=== PATIENT | male | born 1950 | race Caucasian/White ===

== ENCOUNTER 2017-10-31 08:02 | Outpatient (RCR) | payer MEDICARE, OTHER, SELFPAY ==
[2017-10-31 08:55] VITALS: BP 156/96; PULSE 57; RESP 18; TEMP 37; BMI 30.3
--- NOTE | 2017-10-31 10:53 | RAD_ITS ---
STUDY: X-RAY CHEST REASON FOR EXAM: Male, 67 years old. pre wound center, no chest complaints TECHNIQUE: Frontal and lateral view of the chest. COMPARISON: None. FINDINGS: The lungs are clear and expanded. There is no demonstrated pleural abnormality. Normal size heart. Normal mediastinum and samanta. Normal visualized pulmonary arteries. Normal visualized aortic arch and descending thoracic aorta. There are diffuse degenerative changes of the visualized thoracic spine. Normal visualized ribs, clavicles, and shoulders. There is no demonstrated abnormality of the visualized soft tissue structures of the upper abdomen. RAD/Chest PA and Lateral IMPRESSION: There are no acute findings in the chest. Electronically Signed: Luis Austin MD at 21:44 EDT , Service support ,
--- NOTE | 2017-10-31 10:57 | EKG12_ITS ---
Test Reason : HTN Blood Pressure : / mmHG Vent. Rate : 061 BPM Atrial Rate : 061 BPM P-R Int : 164 ms QRS Dur : 088 ms QT Int : 424 ms P-R-T Axes : 064 005 037 degrees QTc Int : 426 ms Normal sinus rhythm Possible Left atrial enlargement Borderline ECG No previous ECGs available Confirmed by NICOLASA CAMARA, IZZY ([id number]), visual effects editor MELVINA ROTH ([id number] on 11/03/2017 3:53:30 PM Referred By: Marita Cook Confirmed By:IZZY BALDWIN MD
[2017-10-31 11:04] LABS: Absolute Lymphocyte Count 0.44 X10^3/ul (0.83-4.51); Absolute Neutrophil Count 6.1 X10^3/uL (2.0-7.7); Basophil# 0.02 X10^3/uL; Basophil% 0.3 % (0-1); Differential Indicated SCAN CRITERIA MET; Eosinophil# 0.16 X10^3/uL; Eosinophils% 2.1 % (0-5); Hematocrit 47.2 % (40-54); Hemoglobin 15.8 g/dl (13.0-16.5); Lymphocyte # 0.44 X10^3/ul (4.0); Lymphocyte % 5.9 % (19-41); Mean Corp Hgb Conc 33.5 g/gl (32-36); Mean Corpuscular Hgb 29.2 pg (27.0-32.0); Mean Corpuscular Volume 87.2 fL (80-94); Mean Platelet Vol. 10.3 fl (6.2-12.0); Monocyte# 0.71 X10^3/uL; Monocyte% 9.5 % (0-10); Neutrophil # 6.13 X10^3/uL (2.7-7.7); Neutrophil % 82.1 % (47-70); POSITIVE COUNT NO; POSITIVE DIFFERENTIAL YES; POSITIVE MORPHOLOGY NO; Platelet Count 215 K/mm3 (150-450); RBC Distribution Width CV 13.5 % (11.6-14.6); RBC Distribution Width SD 43.2 fl (35.1-43.9); Red Blood Count 5.41 M/mm3 (4.6-6.2); White Blood Count 7.5 K/mm3 (4.4-11.0)
--- NOTE | 2017-10-31 11:17 | HBO.CON.PC_ITS ---
(1) Soft tissue radionecrosis Status: Acute Current Visit: Yes Code(s): L59.8 - Other specified disorders of the skin and subcutaneous tissue related to radiation; Y84.2 - Radiological procedure and radiotherapy as the cause of abnormal reaction of the patient, or of later complication, without mention of misadventure at the time of the procedure (2) History of osteomyelitis Status: Acute Current Visit: Yes Code(s): Z87.39 - Personal history of other diseases of the musculoskeletal system and connective tissue (3) Cancer of tongue Status: Acute Current Visit: Yes Code(s): C02.9 - Malignant neoplasm of tongue, unspecified History of Present Illness Date of Service: 10/31/17 Presenting Chief Complaint: HBO evaluation The patient is a 67 year old M who [facility] the possibility of initiating hyperbaric oxygen therapy for treatment of [] 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 Patient has had implants for T on the left molar area on the lower jaw. 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 Patient currently feels good and other than missing teeth on the left side has had no problems. Past Medical History Allergies/Adverse Reactions: Allergies No Known Allergies Allergy (Verified 10/31/17 08:36) Smoking Status: Former smoker Review of Systems Constitutional: Denies: Chills, Fever Eyes: Denies: Blurred vision, Drainage, Pain HEENT: Denies: Difficulty Hearing, Difficulty Swallowing, Sore Throat, Visual Changes Cardiovascular: Denies: Chest Pain, Palpitations, Syncope Respiratory: Denies: Cough, Shortness of Breath Gastrointestinal: Denies: Abdominal Pain, Nausea, Vomiting Genitourinary: Denies: Dysuria, Frequency Musculoskeletal: Denies: Joint Pain, Muscle pain Skin: Denies: Jaundice, Rash Neurological: Denies: Balance problems, Change in Speech, Difficulty swallowing , Focal weakness Psychiatric: Denies: Anxiety, Depression Endocrine: Denies: Change in Body Habitus Hematologic/ Lymphatic: Denies: Adenopathy - Physical Exam Vital Signs Temp Pulse Resp BP 98.6 F 57 L 18 156/96 H 10/31/17 08:55 10/31/17 08:55 10/31/17 08:55 10/31/17 08:55 General: Oriented x3, Cooperative, Well developed HEENT: Atraumatic, PERRLA Oral: Moist Mucosa Neck: Supple, No JVD Lungs: Clear to auscultation, Normal air movement Cardiovascular: Regular rate, Regular Rhythm Abdomen: Bowel Sounds Present, Soft, Non Tender, No Hepato-splenomegaly Extremities: No clubbing, No edema Wound Measurements and Assessment WC - Nurse 1 - General Ulcer Measurement Start: 10/31/17 08:35 Freq: Status: Active Protocol: Activity Type Activity Date Activity User E-Sign Co-Sign Detail Recorded Client Recorded Date Recorded By Document 10/31/17 08:55 TM [id number] 10/31/17 08:57 TM 10/31/17 08:55 Wound Center Nurse 1 [Edema Assessment] -Lower Limb Edema Present No WC - Nurse 2 - General Ulcer CM Notes Start: 10/31/17 08:35 Freq: Status: Active Protocol: Activity Type Activity Date Activity User E-Sign Co-Sign Detail Recorded Client Recorded Date Recorded By Document 10/31/17 09:38 MW [id number] 10/31/17 09:51 MW 10/31/17 09:38 Wound Center Nurse 2 [Procedure/Treatment] STRN -Time 09:38 -Correct Patient Yes -Correct Side, Site, Position Yes -Correct Procedure No -Procedure Performed No -Wound/Ulcer Outcome Not Healed -Ulcer Cleansing Not Cleansed -Foul Odor after Cleansing No -Bioengineered Tissue No -Bleeding Controlled with NA [See Physician Procedure note for Specifics] Pain Scale: 0-10 Numeric [Pain] -Is Patient Pain Free? Yes Musculoskeletal: No Tenderness to Palpation of Joints or Extremities Lymphatic: No Cervical, Supraclavicular, or Inguinal Adenopathy Neurological: Cranial nerves II-XII grossly intact, Neuro grossly intact Psych/Mental Status: Normal Affect, Appropriate Assessment/Plan Active Problems Soft tissue radionecrosis (Acute) History of osteomyelitis (Acute) Cancer of tongue (Acute) AMY SUN is an appropriate candidate for hyperbaric oxygen therapy. Hyperbaric Oxygen Therapy would be an essential adjunct in the resolution and treatment of this patient's presenting problem. This patient has sufficient physiologic and psychological stamina to undergo the rigors of hyperbaric oxygen therapy. As such, I recommend the following: Hyperbaric Oxygen Treatments at 2.0 BLANE in 100% Oxygen for 90 minutes per treatment, for [] treatments. I have discussed the possible benefits of hyperbaric oxygen therapy with this patient. I have also presented and described the risks, including: air gas embolism, pneumothorax, central nervous system and pulmonary oxygen toxicity, flash pulmonary edema, hypoglycemia, reversible visual refractive changes, ear and sinus cathryn-trauma, and confinement anxiety. The patient has verbalized understanding of these risks, and is still wanting to undergo hyperbaric oxygen therapy. The patient understands the significant time and transportation commitment involved in daily treatments of up to two hours duration and has stated that they are willing to commit to this therapy.
[2017-10-31 11:40] LABS: BUN 18 mg/dL (7-18); Creatinine, Serum 1.05 mg/dL (0.70-1.30); Estimated Creatinine Clearance 77.15 ml/min; Glucose 103 mg/dL (74-106)
[2017-10-31 11:41] LABS: ALB/GLOB Ratio 1.1 RATIO (0.9-2.4); AST(SGOT) 30 U/L (15-37); Alanine Aminotransfer ALT/SGPT 32 U/L (16-61); Albumin, Serum 3.9 g/dL (3.2-5.0); Alkaline Phosphatase 129 U/L (45-117); Anion Gap 7 (5-15); BUN/Creat Ratio 17.1 RATIO (10-20); Calcium,Total 8.6 mg/dL (8.5-10.1); Chloride 105 mmol/L (98-107); EST Glomerular Filtration Rate 75 mL/min (>60); Est Glom Filt Rate - Afr Amer 91 mL/min (>60); Globulin 3.6 g/dL (2.2-4.2); Potassium 3.9 mmol/L (3.5-5.1); Prealbumin 23.7 mg/dL (20.0-40.0); Protein, Total 7.5 g/dL (6.4-8.2); Sodium Level 142 mmol/L (136-145)
== END 2017-11-16 23:59 ==
LOC: WC 08:02
PROVIDERS: Visit Provider Nurse Practitioner
DX: L59.8 Other specified disorders of the skin and subcutaneous tissue related to radiation (principal); Y84.2 Radiological procedure and radiotherapy as the cause of abnormal reaction of the patient, or of later complication, without mention of misadventure at the time of the procedure; Z87.39 Personal history of other diseases of the musculoskeletal system and connective tissue; C02.9 Malignant neoplasm of tongue, unspecified; Z87.891 Personal history of nicotine dependence
CPT/HCPCS: 36415; 71046; 80053; 84134; 85025; 93005; 99203; G0463

== ENCOUNTER 2017-12-17 14:00 | Outpatient (RCR) | payer MEDICARE, OTHER, SELFPAY ==
[2017-11-17 01:40] VITALS: BP 156/96; PULSE 57; RESP 18; TEMP 37
[2017-12-09 15:16] VITALS: BP 143/95; BP 153/96; PULSE 57; PULSE 66; RESP 18; TEMP 36.7
[2017-12-10 14:00] VITALS: BP 140/99; BP 148/107; PULSE 71; PULSE 98; RESP 16; RESP 18; TEMP 15.5; TEMP 36.8
--- NOTE | 2017-12-10 16:26 | PCM.HBO.PN ---
History of Present Illness Date of Service: 12/10/17 Presenting Chief Complaint: HBO evaluation AMY SUN is a 67 year old currently undergoing hyperbaric oxygen therapy for Progress: Today's session represents the 2nd such session of hyperbaric oxygen therapy. The patient appears to be tolerating without problems. Tolerance of hyperbaric oxygen therapy: Hyperbaric oxygen therapy was administered as per the facility's protocol. The patient tolerated hyperbaric oxygen therapy well, without complaints or complications. Upon emergence from the hyperbaric chamber, the patient's vital signs remained stable. The patient was discharged in good condition. Past Medical History Allergies/Adverse Reactions: Allergies No Known Allergies Allergy (Verified 10/31/17 08:36) Smoking Status: Former smoker Physical Exam Vital Signs Temp Pulse Resp BP 98.2 F 71 16 140/99 H 12/10/17 14:00 12/10/17 14:00 12/10/17 14:00 12/10/17 14:00 General: Alert, Oriented x3, Cooperative, No apparent distress HEENT: Atraumatic, TM's Clear Lungs: Clear to auscultation, Normal air movement, No rhonchi, No wheeze, No rales Cardiovascular: Regular rate, Regular Rhythm, Normal S1, Normal S2, No murmurs Psych/Mental Status: Normal Affect, Appropriate, Alert and oriented to time, place, person, mood and affect Assessment/Plan The patient is tolerating hyperbaric oxygen and therapy will continue as planned.
[2017-12-11 14:55] VITALS: BP 162/92; PULSE 72; RESP 20; TEMP -7.7; TEMP 18; TEMP 36.6
--- NOTE | 2017-12-11 17:57 | PCM.HBO.PN ---
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 Progress: Today's session represents the 3rd such session of hyperbaric oxygen therapy. The patient appears to be tolerating without problems. Tolerance of hyperbaric oxygen therapy: Hyperbaric oxygen therapy was administered as per the facility's protocol. The patient tolerated hyperbaric oxygen therapy well, without complaints or complications. Upon emergence from the hyperbaric chamber, the patient's vital signs remained stable. The patient was discharged in good condition. Past Medical History Allergies/Adverse Reactions: Allergies No Known Allergies Allergy (Verified 10/31/17 08:36) Smoking Status: Former smoker Physical Exam Vital Signs Temp Pulse Resp BP 98 F 72 20 H 162/92 H 12/11/17 14:55 12/11/17 14:55 12/11/17 14:55 12/11/17 14:55 General: Alert, Oriented x3, Cooperative, No apparent distress HEENT: Atraumatic, PERRLA, TM's Clear Lungs: Clear to auscultation, Normal air movement, No rhonchi, No wheeze, No rales Cardiovascular: Regular rate, Regular Rhythm, Normal S1, Normal S2 Psych/Mental Status: Normal Affect, Appropriate, Alert and oriented to time, place, person, mood and affect Assessment/Plan The patient is tolerating hyperbaric oxygen and therapy will continue as planned.
[2017-12-12 13:42] VITALS: BP 135/99; BP 156/94; PULSE 57; PULSE 71; RESP 16; RESP 18; TEMP 36.3; TEMP 37.1
--- NOTE | 2017-12-12 18:41 | PCM.HBO.PN ---
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 Progress: Today's session represents the 4th such session of hyperbaric oxygen therapy. The patient appears to be tolerating without problems. Tolerance of hyperbaric oxygen therapy: Hyperbaric oxygen therapy was administered as per the facility's protocol. The patient tolerated hyperbaric oxygen therapy well, without complaints or complications. Upon emergence from the hyperbaric chamber, the patient's vital signs remained stable. The patient was discharged in good condition. Past Medical History Allergies/Adverse Reactions: Allergies No Known Allergies Allergy (Verified 10/31/17 08:36) Smoking Status: Former smoker Physical Exam Vital Signs Temp Pulse Resp BP 98.7 F 71 18 135/99 H 12/12/17 13:42 12/12/17 13:42 12/12/17 13:42 12/12/17 13:42 General: Alert, Oriented x3, Cooperative, No apparent distress Psych/Mental Status: Normal Affect, Appropriate Assessment/Plan Active Problems Soft tissue radionecrosis (Acute) History of osteomyelitis (Acute) Cancer of tongue (Acute) The patient is tolerating hyperbaric oxygen treatment and therapy will continue as per his comprehensive medical treatment plan.
--- NOTE | 2017-12-17 14:37 | PCM.HBO.PN ---
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 Progress: Today's session represents the 5th such session of hyperbaric oxygen therapy. The patient appears to be tolerating without problems. Tolerance of hyperbaric oxygen therapy: Hyperbaric oxygen therapy was administered as per the facility's protocol. The patient tolerated hyperbaric oxygen therapy well, without complaints or complications. Upon emergence from the hyperbaric chamber, the patient's vital signs remained stable. The patient was discharged in good condition. Past Medical History Allergies/Adverse Reactions: Allergies No Known Allergies Allergy (Verified 10/31/17 08:36) Smoking Status: Former smoker Physical Exam Vital Signs Temp Pulse Resp BP 98.7 F 71 18 135/99 H 12/12/17 13:42 12/12/17 13:42 12/12/17 13:42 12/12/17 13:42 General: Alert, Oriented x3, Cooperative, No apparent distress HEENT: Atraumatic, TM's Clear Lungs: Clear to auscultation, Normal air movement, No rhonchi, No wheeze, No rales Cardiovascular: Regular rate, Regular Rhythm, Normal S1, Normal S2, No murmurs Psych/Mental Status: Normal Affect, Appropriate, Alert and oriented to time, place, person, mood and affect Assessment/Plan The patient is tolerating hyperbaric oxygen treatment and therapy will continue as per his comprehensive medical treatment plan.
[2017-12-17 16:38] VITALS: BP 133/82; BP 157/99; PULSE 59; PULSE 71; RESP 18; TEMP 36.5; TEMP 36.8
== END 2017-12-17 23:59 ==
LOC: WC 14:00
PROVIDERS: Referring Provider Nurse Practitioner; Visit Provider Nurse Practitioner
DX: L59.8 Other specified disorders of the skin and subcutaneous tissue related to radiation (principal); Y84.2 Radiological procedure and radiotherapy as the cause of abnormal reaction of the patient, or of later complication, without mention of misadventure at the time of the procedure; Z87.891 Personal history of nicotine dependence; C02.9 Malignant neoplasm of tongue, unspecified
CPT/HCPCS: 99183; G0277

== ENCOUNTER 2018-01-16 10:00 | Outpatient (RCR) | payer MEDICARE, OTHER, SELFPAY ==
[2017-12-18 01:36] VITALS: BP 133/82; PULSE 71; RESP 18; TEMP 36.8
[2017-12-18 14:25] VITALS: BP 118/81; BP 145/89; PULSE 62; PULSE 71; RESP 18; TEMP 36.4; TEMP 36.6
--- NOTE | 2017-12-18 16:26 | PCM.HBO.PN ---
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 Progress: Today's session represents the 7th such session of hyperbaric oxygen therapy. The patient appears to be tolerating without problems. Tolerance of hyperbaric oxygen therapy: Hyperbaric oxygen therapy was administered as per the facility's protocol. The patient tolerated hyperbaric oxygen therapy well, without complaints or complications. Upon emergence from the hyperbaric chamber, the patient's vital signs remained stable. The patient was discharged in good condition. Past Medical History Allergies/Adverse Reactions: Allergies No Known Allergies Allergy (Verified 10/31/17 08:36) Home Medications: Ambulatory Orders Medication Instructions Recorded Valsartan 160 mg PO 12/18/17 Smoking Status: Former smoker Physical Exam Vital Signs Temp Pulse Resp BP 97.8 F 71 18 118/81 H 12/18/17 14:25 12/18/17 14:25 12/18/17 14:25 12/18/17 14:25 General: Alert, Oriented x3, Cooperative, No apparent distress HEENT: Atraumatic, PERRLA, Normocephalic, TM's Clear Lungs: Clear to auscultation, Normal air movement Cardiovascular: Regular rate, Regular Rhythm Psych/Mental Status: Normal Affect, Appropriate, Alert and oriented to time, place, person, mood and affect Assessment/Plan The patient is tolerating hyperbaric oxygen treatment and therapy will continue as per his comprehensive medical treatment plan.
[2017-12-19 13:51] VITALS: BP 125/85; BP 150/89; PULSE 64; PULSE 65; RESP 16; RESP 20; TEMP 36.5; TEMP 37.1
--- NOTE | 2017-12-19 18:52 | PCM.HBO.PN ---
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 Progress: Today's session represents the 8th such session of hyperbaric oxygen therapy. The patient appears to be tolerating without problems. Tolerance of hyperbaric oxygen therapy: Hyperbaric oxygen therapy was administered as per the facility's protocol. The patient tolerated hyperbaric oxygen therapy well, without complaints or complications. Upon emergence from the hyperbaric chamber, the patient's vital signs remained stable. The patient was discharged in good condition. Past Medical History Allergies/Adverse Reactions: Allergies No Known Allergies Allergy (Verified 10/31/17 08:36) Home Medications: Ambulatory Orders Medication Instructions Recorded Valsartan 160 mg PO 12/18/17 Smoking Status: Former smoker Tobacco Use: Non-smoker Physical Exam Vital Signs Temp Pulse Resp BP 97.7 F L 65 20 H 125/85 H 12/19/17 13:51 12/19/17 13:51 12/19/17 13:51 12/19/17 13:51 General: Alert, Oriented x3, Cooperative, No apparent distress Psych/Mental Status: Normal Affect, Appropriate Assessment/Plan Active Problems Soft tissue radionecrosis (Acute) History of osteomyelitis (Acute) Cancer of tongue (Acute) The patient is tolerating hyperbaric oxygen treatment and therapy will continue as per his comprehensive medical treatment plan.
[2017-12-22 14:23] VITALS: BP 149/94; BP 157/92; PULSE 59; PULSE 64; RESP 18; TEMP 36.6; TEMP 36.7
--- NOTE | 2017-12-22 16:18 | PCM.HBO.PN ---
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 Progress: Today's session represents the 8th such session of hyperbaric oxygen therapy. The patient appears to be tolerating without problems. Tolerance of hyperbaric oxygen therapy: Hyperbaric oxygen therapy was administered as per the facility's protocol. The patient tolerated hyperbaric oxygen therapy well, without complaints or complications. Upon emergence from the hyperbaric chamber, the patient's vital signs remained stable. The patient was discharged in good condition. Past Medical History Allergies/Adverse Reactions: Allergies No Known Allergies Allergy (Verified 10/31/17 08:36) Home Medications: Ambulatory Orders Medication Instructions Recorded Valsartan 160 mg PO 12/18/17 Smoking Status: Former smoker Tobacco Use: Non-smoker Physical Exam Vital Signs Temp Pulse Resp BP 98.1 F 64 18 157/92 H 12/22/17 14:23 12/22/17 14:23 12/22/17 14:23 12/22/17 14:23 General: Alert, Oriented x3, Cooperative, No apparent distress, Well developed, Well nourished HEENT: Atraumatic, PERRLA, EOMI, Normocephalic Lungs: Normal air movement Psych/Mental Status: Normal Affect, Appropriate, Alert and oriented to time, place, person, mood and affect Assessment/Plan The patient appears to be tolerating hyperbaric oxygen therapy well, which will be continued as per the patient's medical plan.
[2017-12-24 14:00] VITALS: BP 161/116; BP 182/114; PULSE 64; RESP 16; RESP 18; TEMP 36.8
--- NOTE | 2017-12-24 14:34 | PCM.HBO.PN ---
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 Progress: Today's session represents the 9th such session of hyperbaric oxygen therapy. The patient appears to be tolerating without problems. Tolerance of hyperbaric oxygen therapy: Hyperbaric oxygen therapy was administered as per the facility's protocol. The patient tolerated hyperbaric oxygen therapy well, without complaints or complications. Upon emergence from the hyperbaric chamber, the patient's vital signs remained stable. The patient was discharged in good condition. Past Medical History Allergies/Adverse Reactions: Allergies No Known Allergies Allergy (Verified 10/31/17 08:36) Home Medications: Ambulatory Orders Medication Instructions Recorded Valsartan 160 mg PO 12/18/17 Smoking Status: Former smoker Tobacco Use: Non-smoker Physical Exam Vital Signs Temp Pulse Resp BP 98.1 F 64 18 157/92 H 12/22/17 14:23 12/22/17 14:23 12/22/17 14:23 12/22/17 14:23 General: Alert, Oriented x3, Cooperative, No apparent distress HEENT: Atraumatic, TM's Clear Lungs: Clear to auscultation, Normal air movement, No rhonchi, No wheeze, No rales Cardiovascular: Regular rate, Regular Rhythm Psych/Mental Status: Normal Affect, Appropriate, Alert and oriented to time, place, person, mood and affect Assessment/Plan The patient appears to be tolerating hyperbaric oxygen therapy well, which will be continued as per the patient's medical plan.
[2017-12-25 16:00] VITALS: BP 148/96; BP 155/105; PULSE 57; PULSE 67; RESP 18; TEMP 36.6; TEMP 36.9
--- NOTE | 2017-12-25 17:13 | PCM.HBO.PN ---
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 Progress: Today's session represents the 11th such session of hyperbaric oxygen therapy. The patient appears to be tolerating without problems. Tolerance of hyperbaric oxygen therapy: Hyperbaric oxygen therapy was administered as per the facility's protocol. The patient tolerated hyperbaric oxygen therapy well, without complaints or complications. Upon emergence from the hyperbaric chamber, the patient's vital signs remained stable. The patient was discharged in good condition. Past Medical History Allergies/Adverse Reactions: Allergies No Known Allergies Allergy (Verified 10/31/17 08:36) Home Medications: Ambulatory Orders Medication Instructions Recorded Valsartan 160 mg PO 12/18/17 Smoking Status: Former smoker Tobacco Use: Non-smoker Physical Exam Vital Signs Temp Pulse Resp BP 98.4 F 67 18 148/96 H 12/25/17 16:00 12/25/17 16:00 12/25/17 16:00 12/25/17 16:00 General: Alert, Oriented x3, Cooperative, No apparent distress HEENT: Atraumatic, PERRLA, EOMI, TM's Clear, - - small amount of cerumen present left ear canal, unable to remove with loop Lungs: Clear to auscultation, Normal air movement Cardiovascular: Regular rate, Regular Rhythm Psych/Mental Status: Normal Affect, Appropriate, Alert and oriented to time, place, person, mood and affect Assessment/Plan The patient appears to be tolerating hyperbaric oxygen therapy well, which will be continued as per the patient's medical plan.
[2017-12-26 13:38] VITALS: BP 150/83; BP 183/101; PULSE 65; PULSE 66; RESP 16; RESP 18; TEMP 36.7; TEMP 36.9
--- NOTE | 2017-12-26 15:55 | PCM.HBO.PN ---
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 Progress: Today's session represents the 12th such session of hyperbaric oxygen therapy. The patient appears to be tolerating without problems. Tolerance of hyperbaric oxygen therapy: Hyperbaric oxygen therapy was administered as per the facility's protocol. The patient tolerated hyperbaric oxygen therapy well, without complaints or complications. Upon emergence from the hyperbaric chamber, the patient's vital signs remained stable. The patient was discharged in good condition. Past Medical History Allergies/Adverse Reactions: Allergies No Known Allergies Allergy (Verified 10/31/17 08:36) Home Medications: Ambulatory Orders Medication Instructions Recorded Valsartan 160 mg PO 12/18/17 Smoking Status: Former smoker Tobacco Use: Non-smoker Physical Exam Vital Signs Temp Pulse Resp BP 98.4 F 66 18 183/101 H 12/26/17 13:38 12/26/17 13:38 12/26/17 13:38 12/26/17 13:38 General: Alert, Oriented x3, Cooperative, No apparent distress Psych/Mental Status: Normal Affect, Appropriate Assessment/Plan Active Problems Soft tissue radionecrosis (Acute) History of osteomyelitis (Acute) Cancer of tongue (Acute) The patient appears to be tolerating hyperbaric oxygen therapy well, which will be continued as per the patient's medical plan.
[2017-12-29 13:53] VITALS: BP 141/74; BP 156/97; PULSE 63; PULSE 68; RESP 16; TEMP 35; TEMP 36.4
--- NOTE | 2017-12-29 16:35 | PCM.HBO.PN ---
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 Progress: Today's session represents the 12th such session of hyperbaric oxygen therapy. The patient appears to be tolerating without problems. Tolerance of hyperbaric oxygen therapy: Hyperbaric oxygen therapy was administered as per the facility's protocol. The patient tolerated hyperbaric oxygen therapy well, without complaints or complications. Upon emergence from the hyperbaric chamber, the patient's vital signs remained stable. The patient was discharged in good condition. Past Medical History Allergies/Adverse Reactions: Allergies No Known Allergies Allergy (Verified 10/31/17 08:36) Home Medications: Ambulatory Orders Medication Instructions Recorded Valsartan 160 mg PO 12/18/17 Smoking Status: Former smoker Tobacco Use: Non-smoker Physical Exam Vital Signs Temp Pulse Resp BP 95 F L 68 16 156/97 H 12/29/17 13:53 12/29/17 13:53 12/29/17 13:53 12/29/17 13:53 General: Alert, Oriented x3, Cooperative, No apparent distress, Well developed, Well nourished HEENT: Atraumatic, PERRLA, EOMI, Normocephalic Lungs: Normal air movement Psych/Mental Status: Normal Affect, Appropriate, Alert and oriented to time, place, person, mood and affect Assessment/Plan The patient appears to be tolerating hyperbaric oxygen therapy well, which will be continued as per the patient's medical plan.
[2017-12-31 14:22] VITALS: BP 158/113; BP 162/90; PULSE 56; PULSE 60; RESP 18; TEMP 36.4; TEMP 36.6
--- NOTE | 2017-12-31 15:19 | PCM.HBO.PN ---
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 Progress: Today's session represents the 13th such session of hyperbaric oxygen therapy. The patient appears to be tolerating without problems. Tolerance of hyperbaric oxygen therapy: Hyperbaric oxygen therapy was administered as per the facility's protocol. The patient tolerated hyperbaric oxygen therapy well, without complaints or complications. Upon emergence from the hyperbaric chamber, the patient's vital signs remained stable. There was an obvious bump to the lateral aspect of the left lower leg. The site was not red or warm. It was not painful to the touch. The inflammation quickly resolved once out of the chamber. The patient was discharged in good condition. Past Medical History Allergies/Adverse Reactions: Allergies No Known Allergies Allergy (Verified 10/31/17 08:36) Home Medications: Ambulatory Orders Medication Instructions Recorded Valsartan 160 mg PO 12/18/17 Smoking Status: Former smoker Tobacco Use: Non-smoker Physical Exam Vital Signs Temp Pulse Resp BP 97.8 F 56 L 18 162/90 H 12/31/17 14:22 12/31/17 14:22 12/31/17 14:22 12/31/17 14:22 General: Alert, Oriented x3, Cooperative, No apparent distress HEENT: Atraumatic, TM's Clear Lungs: Clear to auscultation, Normal air movement, No rhonchi, No wheeze, No rales Cardiovascular: Regular rate, Regular Rhythm, Normal S1, Normal S2, No murmurs Psych/Mental Status: Normal Affect, Appropriate, Alert and oriented to time, place, person, mood and affect Assessment/Plan The patient appears to be tolerating hyperbaric oxygen therapy well, however I recommend therapy be delayed until this the left lateral lower leg can be evaluated. Suggested the patient follow with his PCP or make an appointment with a vascular specialist for clearance.
[2018-01-02 13:16] VITALS: BP 139/98; BP 151/102; PULSE 61; PULSE 69; RESP 16; RESP 18; TEMP 36.3; TEMP 36.6
--- NOTE | 2018-01-02 17:21 | PCM.HBO.PN ---
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 Progress: Today's session represents the 14th such session of hyperbaric oxygen therapy. The patient appears to be tolerating without problems. Tolerance of hyperbaric oxygen therapy: Hyperbaric oxygen therapy was administered as per the facility's protocol. The patient tolerated hyperbaric oxygen therapy well, without complaints or complications. Upon emergence from the hyperbaric chamber, the patient's vital signs remained stable. The patient was discharged in good condition. Past Medical History Allergies/Adverse Reactions: Allergies No Known Allergies Allergy (Verified 10/31/17 08:36) Home Medications: Ambulatory Orders Medication Instructions Recorded Valsartan 160 mg PO 12/18/17 Smoking Status: Former smoker Tobacco Use: Non-smoker Physical Exam Vital Signs Temp Pulse Resp BP 97.8 F 69 18 139/98 H 01/02/18 13:16 01/02/18 13:16 01/02/18 13:16 01/02/18 13:16 General: Alert, Oriented x3, Cooperative, No apparent distress Psych/Mental Status: Normal Affect, Appropriate Assessment/Plan Active Problems Soft tissue radionecrosis (Acute) History of osteomyelitis (Acute) Cancer of tongue (Acute) The patient appears to be tolerating hyperbaric oxygen therapy well and will continue treatments per his current medical plan.
[2018-01-05 14:14] VITALS: BP 153/92; BP 154/104; PULSE 59; PULSE 65; RESP 16; RESP 20; TEMP 36.8; TEMP 37
--- NOTE | 2018-01-05 17:00 | PCM.HBO.PN ---
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 Progress: Today's session represents the 15th such session of hyperbaric oxygen therapy. The patient appears to be tolerating without problems. Tolerance of hyperbaric oxygen therapy: Hyperbaric oxygen therapy was administered as per the facility's protocol. The patient tolerated hyperbaric oxygen therapy well, without complaints or complications. Upon emergence from the hyperbaric chamber, the patient's vital signs remained stable. The patient was discharged in good condition. Past Medical History Allergies/Adverse Reactions: Allergies No Known Allergies Allergy (Verified 10/31/17 08:36) Home Medications: Ambulatory Orders Medication Instructions Recorded Valsartan 160 mg PO 12/18/17 Smoking Status: Former smoker Tobacco Use: Non-smoker Physical Exam Vital Signs Temp Pulse Resp BP 98.6 F 65 20 H 154/104 H 01/05/18 14:14 01/05/18 14:14 01/05/18 14:14 01/05/18 14:14 General: Alert, Oriented x3, Cooperative, No apparent distress, Well developed, Well nourished HEENT: Atraumatic, PERRLA, EOMI, Normocephalic Lungs: Normal air movement Psych/Mental Status: Normal Affect, Appropriate, Alert and oriented to time, place, person, mood and affect Assessment/Plan The patient appears to be tolerating hyperbaric oxygen therapy well, which will be continued as per the patient's medical plan.
[2018-01-07 13:12] VITALS: BP 143/91; PULSE 64; RESP 20; TEMP -6.6; TEMP 20
--- NOTE | 2018-01-07 14:51 | PCM.HBO.PN ---
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 Progress: Today's session represents the 16th such session of hyperbaric oxygen therapy. The patient appears to be tolerating without problems. Tolerance of hyperbaric oxygen therapy: Hyperbaric oxygen therapy was administered as per the facility's protocol. The patient tolerated hyperbaric oxygen therapy well, without complaints or complications. Upon emergence from the hyperbaric chamber, the patient's vital signs remained stable. The patient was discharged in good condition. Past Medical History Allergies/Adverse Reactions: Allergies No Known Allergies Allergy (Verified 10/31/17 08:36) Home Medications: Ambulatory Orders Medication Instructions Recorded Valsartan 160 mg PO 12/18/17 Smoking Status: Former smoker Tobacco Use: Non-smoker Physical Exam Vital Signs Temp Pulse Resp BP 20 F L 64 20 H 143/91 H 01/07/18 13:12 01/07/18 13:12 01/07/18 13:12 01/07/18 13:12 General: Alert, Oriented x3, Cooperative, No apparent distress HEENT: Atraumatic, TM's Clear Lungs: Clear to auscultation, Normal air movement, No rhonchi, No wheeze, No rales Cardiovascular: Regular rate, Regular Rhythm, Normal S1, Normal S2, No murmurs Psych/Mental Status: Normal Affect, Appropriate, Alert and oriented to time, place, person, mood and affect Assessment/Plan The patient appears to be tolerating hyperbaric oxygen therapy well, which will be continued as per the patient's medical plan.
[2018-01-12 15:23] VITALS: BP 134/88; BP 151/101; PULSE 59; PULSE 66; RESP 16; TEMP 35.9; TEMP 37.1
--- NOTE | 2018-01-12 17:17 | PCM.HBO.PN ---
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 Progress: Today's session represents the 17th such session of hyperbaric oxygen therapy. The patient appears to be tolerating without problems. Tolerance of hyperbaric oxygen therapy: Hyperbaric oxygen therapy was administered as per the facility's protocol. The patient tolerated hyperbaric oxygen therapy well, without complaints or complications. Upon emergence from the hyperbaric chamber, the patient's vital signs remained stable. The patient was discharged in good condition. Past Medical History Allergies/Adverse Reactions: Allergies No Known Allergies Allergy (Verified 10/31/17 08:36) Home Medications: Ambulatory Orders Medication Instructions Recorded Valsartan 160 mg PO 12/18/17 Smoking Status: Former smoker Tobacco Use: Non-smoker Physical Exam Vital Signs Temp Pulse Resp BP 98.8 F 66 16 134/88 H 01/12/18 15:23 01/12/18 15:23 01/12/18 15:23 01/12/18 15:23 General: Alert, Oriented x3, Cooperative, No apparent distress, Well developed, Well nourished HEENT: Atraumatic, PERRLA, EOMI, Normocephalic Lungs: Normal air movement Psych/Mental Status: Normal Affect, Appropriate, Alert and oriented to time, place, person, mood and affect Assessment/Plan The patient appears to be tolerating hyperbaric oxygen therapy well, which will be continued as per the patient's medical plan.
[2018-01-14 13:00] VITALS: BP 137/91; BP 144/107; PULSE 55; PULSE 63; RESP 16; TEMP 36.6; TEMP 36.8
--- NOTE | 2018-01-14 13:07 | PCM.HBO.PN ---
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 Progress: Today's session represents the 18th such session of hyperbaric oxygen therapy. The patient appears to be tolerating without problems. Tolerance of hyperbaric oxygen therapy: Hyperbaric oxygen therapy was administered as per the facility's protocol. The patient tolerated hyperbaric oxygen therapy well, without complaints or complications. Upon emergence from the hyperbaric chamber, the patient's vital signs remained stable. The patient was discharged in good condition. Past Medical History Allergies/Adverse Reactions: Allergies No Known Allergies Allergy (Verified 10/31/17 08:36) Home Medications: Ambulatory Orders Medication Instructions Recorded Valsartan 160 mg PO 12/18/17 Smoking Status: Former smoker Tobacco Use: Non-smoker Physical Exam Vital Signs Temp Pulse Resp BP 98.8 F 66 16 134/88 H 01/12/18 15:23 01/12/18 15:23 01/12/18 15:23 01/12/18 15:23 General: Alert, Oriented x3, Cooperative, No apparent distress HEENT: Atraumatic, TM's Clear Lungs: Clear to auscultation, Normal air movement, No rhonchi, No wheeze, No rales Cardiovascular: Regular rate, Regular Rhythm, Normal S1, Normal S2, No murmurs Psych/Mental Status: Normal Affect, Appropriate, Alert and oriented to time, place, person, mood and affect Assessment/Plan The patient appears to be tolerating hyperbaric oxygen therapy well, which will be continued as per the patient's medical plan.
[2018-01-15 12:55] VITALS: BP 128/76; BP 142/95; PULSE 55; PULSE 66; RESP 16; RESP 18; TEMP 36.2; TEMP 36.7
--- NOTE | 2018-01-15 15:42 | PCM.HBO.PN ---
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 Progress: Today's session represents the 19th such session of hyperbaric oxygen therapy. The patient appears to be tolerating without problems. Tolerance of hyperbaric oxygen therapy: Hyperbaric oxygen therapy was administered as per the facility's protocol. The patient tolerated hyperbaric oxygen therapy well, without complaints or complications. Upon emergence from the hyperbaric chamber, the patient's vital signs remained stable. The patient was discharged in good condition. Past Medical History Allergies/Adverse Reactions: Allergies No Known Allergies Allergy (Verified 10/31/17 08:36) Home Medications: Ambulatory Orders Medication Instructions Recorded Valsartan 160 mg PO 12/18/17 Smoking Status: Former smoker Tobacco Use: Non-smoker Physical Exam Vital Signs Temp Pulse Resp BP 98.0 F 66 18 128/76 H 01/15/18 12:55 01/15/18 12:55 01/15/18 12:55 01/15/18 12:55 General: Alert, Oriented x3, Cooperative, No apparent distress HEENT: Atraumatic, PERRLA, Normocephalic, TM's Clear Lungs: Clear to auscultation, Normal air movement, No rhonchi, No wheeze, No rales Cardiovascular: Regular rate, Regular Rhythm, Normal S1, Normal S2, No murmurs Psych/Mental Status: Normal Affect, Appropriate, Alert and oriented to time, place, person, mood and affect Assessment/Plan The patient appears to be tolerating hyperbaric oxygen therapy well, which will be continued as per the patient's medical plan.
[2018-01-16 11:28] VITALS: BP 129/86; BP 162/109; PULSE 55; PULSE 62; RESP 16; RESP 18; TEMP 36.1; TEMP 36.6
--- NOTE | 2018-01-16 11:48 | PCM.HBO.PN ---
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 Progress: Today's session represents the such session of hyperbaric oxygen therapy. The patient appears to be tolerating without problems. Tolerance of hyperbaric oxygen therapy: Hyperbaric oxygen therapy was administered as per the facility's protocol. The patient tolerated hyperbaric oxygen therapy well, without complaints or complications. Upon emergence from the hyperbaric chamber, the patient's vital signs remained stable. The patient was discharged in good condition. Past Medical History Allergies/Adverse Reactions: Allergies No Known Allergies Allergy (Verified 10/31/17 08:36) Home Medications: Ambulatory Orders Medication Instructions Recorded Valsartan 160 mg PO 12/18/17 Smoking Status: Former smoker Tobacco Use: Non-smoker Physical Exam Vital Signs Temp Pulse Resp BP 96.9 F L 62 18 129/86 H 01/16/18 11:28 01/16/18 11:28 01/16/18 11:28 01/16/18 11:28 Assessment/Plan The patient appears to be tolerating hyperbaric oxygen therapy well, which will be continued as per the patient's medical plan.
== END 2018-01-16 23:59 ==
LOC: WC 10:00
PROVIDERS: Referring Provider Nurse Practitioner; Visit Provider Nurse Practitioner
DX: L59.8 Other specified disorders of the skin and subcutaneous tissue related to radiation (principal); Y84.2 Radiological procedure and radiotherapy as the cause of abnormal reaction of the patient, or of later complication, without mention of misadventure at the time of the procedure; Z87.891 Personal history of nicotine dependence; C02.9 Malignant neoplasm of tongue, unspecified
CPT/HCPCS: 99183; G0277

== ENCOUNTER 2018-02-16 08:00 | Outpatient (RCR) | payer MEDICARE, OTHER, SELFPAY ==
[2018-01-17 01:18] VITALS: BP 162/109; PULSE 55; RESP 16; TEMP 36.6
[2018-01-19 13:18] VITALS: BP 141/96; PULSE 64; RESP 18; TEMP 36.5
[2018-01-19 16:06] VITALS: BP 141/96; BP 141/98; PULSE 51; PULSE 64; RESP 16; RESP 18; TEMP 36.5
--- NOTE | 2018-01-19 17:17 | HBO.PN.PCM_ITS ---
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 AMY SUN is a 67 year old currently undergoing hyperbaric oxygen therapy for radial necrosis of the soft tissue and left mandible. Progress: The patient appears to be tolerating hyperbaric oxygen therapy well. Today's session represents the 21st such session of hyperbaric oxygen therapy. Tolerance of hyperbaric oxygen therapy: Hyperbaric oxygen therapy was adm inistered as per the facility protocol. The patient tolerated hyperbaric oxygen therapy well, without complaints or complications. Upon emergence from the hyperbaric chamber, the patient's vital signs remained stable. He was discharged in good condition. Past Medical History Allergies/Adverse Reactions: Allergies No Known Allergies Allergy (Verified 10/31/17 08:36) Home Medications: Ambulatory Orders Medication Instructions Recorded Valsartan 160 mg PO 12/18/17 Smoking Status: Former smoker Tobacco Use: Non-smoker Physical Exam Vital Signs Temp Pulse Resp BP 97.7 F L 64 18 141/96 H 01/19/18 16:06 01/19/18 16:06 01/19/18 16:06 01/19/18 16:06 General: Alert, Oriented x3, Cooperative, No apparent distress, Well developed, Well nourished HEENT: Atraumatic, PERRLA, EOMI, Normocephalic Lungs: Normal air movement Psych/Mental Status: Normal Affect, Appropriate, Alert and oriented to time, place, person, mood and affect Assessment/Plan The patient appears to be tolerating hyperbaric oxygen therapy well, which will be continued as per the patient's medical plan.
[2018-01-21 13:10] VITALS: BP 146/102; BP 173/111; PULSE 55; PULSE 63; RESP 16; RESP 18; TEMP 36.2; TEMP 36.5
--- NOTE | 2018-01-21 13:51 | HBO.PN.PCM_ITS ---
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 AMY SUN is a 67 year old currently undergoing hyperbaric oxygen therapy for radial necrosis of the soft tissue and left mandible. Progress: The patient appears to be tolerating hyperbaric oxygen therapy well. Today's session represents the 22nd such session of hyperbaric oxygen therapy. Tolerance of hyperbaric oxygen therapy: Hyperbaric oxygen therapy was adm inistered as per the facility protocol. The patient tolerated hyperbaric oxygen therapy well, without complaints or complications. Upon emergence from the hyperbaric chamber, the patient's vital signs remained stable. He was discharged in good condition. Past Medical History Allergies/Adverse Reactions: Allergies No Known Allergies Allergy (Verified 10/31/17 08:36) Home Medications: Ambulatory Orders Medication Instructions Recorded Valsartan 160 mg PO 12/18/17 Smoking Status: Former smoker Tobacco Use: Non-smoker Physical Exam Vital Signs Temp Pulse Resp BP 97.7 F L 64 18 141/96 H 01/19/18 16:06 01/19/18 16:06 01/19/18 16:06 01/19/18 16:06 General: Alert, Oriented x3, Cooperative, No apparent distress HEENT: Atraumatic, TM's Clear Lungs: Clear to auscultation, Normal air movement Cardiovascular: Regular rate, Regular Rhythm Psych/Mental Status: Normal Affect, Appropriate, Alert and oriented to time, place, person, mood and affect Assessment/Plan The patient appears to be tolerating hyperbaric oxygen therapy well, which will be continued as per the patient's medical plan.
--- NOTE | 2018-01-22 11:01 | PCM.HBO.PN ---
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 AMY SUN is a 67 year old currently undergoing hyperbaric oxygen therapy for radial necrosis of the soft tissue and left mandible. Progress: The patient appears to be tolerating hyperbaric oxygen therapy well. Today's session represents the 23rd such session of hyperbaric oxygen therapy. Tolerance of hyperbaric oxygen therapy: Hyperbaric oxygen therapy was administered as per the facility protocol. The patient tolerated hyperbaric oxygen therapy well, without complaints or complications. Upon emergence from the hyperbaric chamber, the patient's vital signs remained stable (slight hypertension which has been baseline for him). He was discharged in good condition. Past Medical History Allergies/Adverse Reactions: Allergies No Known Allergies Allergy (Verified 10/31/17 08:36) Home Medications: Ambulatory Orders Medication Instructions Recorded Valsartan 160 mg PO 12/18/17 Smoking Status: Former smoker Tobacco Use: Non-smoker Physical Exam Vital Signs Temp Pulse Resp BP 97.7 F L 63 18 146/102 H 01/21/18 13:10 01/21/18 13:10 01/21/18 13:10 01/21/18 13:10 General: Alert, Oriented x3, Cooperative, No apparent distress HEENT: Atraumatic, TM's Clear Lungs: Clear to auscultation, Normal air movement Cardiovascular: Regular rate, Regular Rhythm Psych/Mental Status: Normal Affect, Appropriate, Alert and oriented to time, place, person, mood and affect Assessment/Plan The patient appears to be tolerating hyperbaric oxygen therapy well, which will be continued as per the patient's medical plan.
[2018-01-22 13:29] VITALS: BP 131/95; BP 150/116; PULSE 53; PULSE 58; RESP 16; RESP 18; TEMP 36.4; TEMP 36.7
[2018-01-23 11:17] VITALS: BP 166/97; BP 187/106; PULSE 55; PULSE 57; RESP 16; RESP 18; TEMP 36; TEMP 36.2
--- NOTE | 2018-01-23 13:00 | PCM.HBO.PN ---
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 AMY SUN is a 67 year old currently undergoing hyperbaric oxygen therapy for radial necrosis of the soft tissue and left mandible. Progress: The patient appears to be tolerating hyperbaric oxygen therapy well. Today's session represents the 23rd such session of hyperbaric oxygen therapy. Tolerance of hyperbaric oxygen therapy: Hyperbaric oxygen therapy was administered as per the facility protocol. The patient tolerated hyperbaric oxygen therapy well, without complaints or complications. Upon emergence from the hyperbaric chamber, the patient's vital signs remained stable (slight hypertension which has been baseline for him). He was discharged in good condition. Past Medical History Allergies/Adverse Reactions: Allergies No Known Allergies Allergy (Verified 10/31/17 08:36) Home Medications: Ambulatory Orders Medication Instructions Recorded Valsartan 160 mg PO 12/18/17 Smoking Status: Former smoker Tobacco Use: Non-smoker Physical Exam Vital Signs Temp Pulse Resp BP 96.8 F L 55 L 18 166/97 H 01/23/18 11:17 01/23/18 11:17 01/23/18 11:17 01/23/18 11:17 Assessment/Plan The patient appears to be tolerating hyperbaric oxygen therapy well, which will be continued as per the patient's medical plan.
[2018-01-26 14:18] VITALS: BP 138/89; BP 142/91; PULSE 55; PULSE 66; RESP 16; RESP 18; TEMP 35.6; TEMP 36.6
--- NOTE | 2018-01-26 16:24 | PCM.HBO.PN ---
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 AMY SUN is a 67 year old currently undergoing hyperbaric oxygen therapy for radionecrosis of the soft tissue and left mandible. Progress: The patient appears to be tolerating hyperbaric oxygen therapy well. Today's session represents the 25th such session of hyperbaric oxygen therapy. Tolerance of hyperbaric oxygen therapy: Hyperbaric oxygen therapy was administered as per the facility protocol. The patient tolerated hyperbaric oxygen therapy well, without complaints or complications. Upon emergence from the hyperbaric chamber, the patient's vital signs remained stable. He was discharged in good condition. Past Medical History Allergies/Adverse Reactions: Allergies No Known Allergies Allergy (Verified 10/31/17 08:36) Home Medications: Ambulatory Orders Medication Instructions Recorded Valsartan 160 mg PO 12/18/17 Smoking Status: Former smoker Tobacco Use: Non-smoker Physical Exam Vital Signs Temp Pulse Resp BP 97.8 F 66 18 138/89 H 01/26/18 14:18 01/26/18 14:18 01/26/18 14:18 01/26/18 14:18 General: Alert, Oriented x3, Cooperative, No apparent distress, Well developed, Well nourished HEENT: Atraumatic, PERRLA, EOMI, Normocephalic Lungs: Normal air movement Psych/Mental Status: Normal Affect, Appropriate, Alert and oriented to time, place, person, mood and affect Assessment/Plan Patient appears to be tolerating hyperbaric oxygen therapy well, which will be continued as per the patient's medical plan.
--- NOTE | 2018-01-28 12:20 | HBO.PN.PCM_ITS ---
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 AMY SUN is a 67 year old currently undergoing hyperbaric oxygen therapy for radionecrosis of the soft tissue and left mandible. Progress: The patient appears to be tolerating hyperbaric oxygen therapy well. Today's session represents the 26th such session of hyperbaric oxygen therapy. Tolerance of hyperbaric oxygen therapy: Hyperbaric oxygen therapy was admin istered as per the facility protocol. The patient tolerated hyperbaric oxygen therapy well, without complaints or complications. Upon emergence from the hyperbaric chamber, the patient's vital signs remained stable. He was discharged in good condition. Past Medical History Allergies/Adverse Reactions: Allergies No Known Allergies Allergy (Verified 10/31/17 08:36) Home Medications: Ambulatory Orders Medication Instructions Recorded Valsartan 160 mg PO 12/18/17 Smoking Status: Former smoker Tobacco Use: Non-smoker Physical Exam Vital Signs Temp Pulse Resp BP 97.8 F 66 18 138/89 H 01/26/18 14:18 01/26/18 14:18 01/26/18 14:18 01/26/18 14:18 General: Alert, Oriented x3, Cooperative, No apparent distress HEENT: Atraumatic, TM's Clear Lungs: Clear to auscultation, Normal air movement, No rhonchi, No wheeze Cardiovascular: Regular rate, Regular Rhythm Psych/Mental Status: Normal Affect, Appropriate, Alert and oriented to time, place, person, mood and affect Assessment/Plan Patient appears to be tolerating hyperbaric oxygen therapy well, which will be continued as per the patient's medical plan.
[2018-01-28 12:51] VITALS: BP 145/99; PULSE 64; RESP 16; TEMP 36.1
[2018-01-29 09:51] VITALS: BP 133/93; BP 184/104; PULSE 69; PULSE 70; RESP 16; RESP 18; TEMP 36.3; TEMP 36.6
--- NOTE | 2018-01-29 13:17 | PCM.HBO.PN ---
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 AMY SUN is a 67 year old currently undergoing hyperbaric oxygen therapy for radionecrosis of the soft tissue and left mandible. Progress: The patient appears to be tolerating hyperbaric oxygen therapy well. Tolerance of hyperbaric oxygen therapy: Hyperbaric oxygen therapy was administered as per the facility protocol. The patient tolerated hyperbaric oxygen therapy well, without complaints or complications. Upon emergence from the hyperbaric chamber, the patient's vital signs remained stable. He was discharged in good condition. Past Medical History Allergies/Adverse Reactions: Allergies No Known Allergies Allergy (Verified 10/31/17 08:36) Home Medications: Ambulatory Orders Medication Instructions Recorded Valsartan 160 mg PO 12/18/17 Smoking Status: Former smoker Tobacco Use: Non-smoker Physical Exam Vital Signs Temp Pulse Resp BP 97.9 F 69 18 133/93 H 01/29/18 09:51 01/29/18 09:51 01/29/18 09:51 01/29/18 09:51 General: Alert, Oriented x3, Cooperative, No apparent distress HEENT: Atraumatic, Normocephalic, TM's Clear Lungs: Normal air movement Psych/Mental Status: Normal Affect Assessment/Plan Patient appears to be tolerating hyperbaric oxygen therapy well, which will be continued as per the patient's medical plan.
[2018-01-30 08:31] VITALS: BP 148/98; BP 186/92; PULSE 59; PULSE 80; RESP 16; TEMP 36.2; TEMP 36.4
--- NOTE | 2018-01-30 10:45 | PCM.HBO.PN ---
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 AMY SUN is a 67 year old currently undergoing hyperbaric oxygen therapy for radionecrosis of the soft tissue and left mandible. Progress: The patient appears to be tolerating hyperbaric oxygen therapy well. Tolerance of hyperbaric oxygen therapy: Hyperbaric oxygen therapy was administered as per the facility protocol. The patient tolerated hyperbaric oxygen therapy well, without complaints or complications. Upon emergence from the hyperbaric chamber, the patient's vital signs remained stable. He was discharged in good condition. Past Medical History Allergies/Adverse Reactions: Allergies No Known Allergies Allergy (Verified 10/31/17 08:36) Home Medications: Ambulatory Orders Medication Instructions Recorded Valsartan 160 mg PO 12/18/17 Smoking Status: Former smoker Tobacco Use: Non-smoker Physical Exam Vital Signs Temp Pulse Resp BP 97.9 F 69 18 133/93 H 01/29/18 09:51 01/29/18 09:51 01/29/18 09:51 01/29/18 09:51 Assessment/Plan Patient appears to be tolerating hyperbaric oxygen therapy well, which will be continued as per the patient's medical plan.
[2018-02-02 14:41] VITALS: BP 123/81; BP 144/103; PULSE 56; PULSE 64; RESP 16; TEMP 35.9; TEMP 36.2
--- NOTE | 2018-02-02 17:13 | PCM.HBO.PN ---
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 MAY SUN is a 67 year old currently undergoing hyperbaric oxygen therapy for radionecrosis of the soft tissue and left mandible. Progress: The patient appears to be tolerating hyperbaric oxygen therapy well. Today's session represents the 29th such session of hyperbaric oxygen therapy. Tolerance of hyperbaric oxygen therapy: Hyperbaric oxygen therapy was administered as per the facility protocol. The patient tolerated hyperbaric oxygen therapy well, without complaints or complications. Upon emergence from the hyperbaric chamber, the patient's vital signs remained stable. He was discharged in good condition. Past Medical History Allergies/Adverse Reactions: Allergies No Known Allergies Allergy (Verified 10/31/17 08:36) Home Medications: Ambulatory Orders Medication Instructions Recorded Valsartan 160 mg PO 12/18/17 Smoking Status: Former smoker Tobacco Use: Non-smoker Physical Exam Vital Signs Temp Pulse Resp BP 96.7 F L 64 16 123/81 H 02/02/18 14:41 02/02/18 14:41 02/02/18 14:41 02/02/18 14:41 General: Alert, Oriented x3, Cooperative, No apparent distress, Well developed, Well nourished HEENT: Atraumatic, PERRLA, EOMI, Normocephalic Lungs: Normal air movement Psych/Mental Status: Normal Affect, Appropriate, Alert and oriented to time, place, person, mood and affect Assessment/Plan The patient appears to be tolerating hyperbaric oxygen therapy well, which will be continued as per the patient's medical plan.
[2018-02-04 08:27] VITALS: BP 150/95; BP 168/96; PULSE 53; PULSE 60; RESP 16; RESP 18; TEMP 36.2; TEMP 36.4
--- NOTE | 2018-02-04 08:53 | PCM.HBO.PN ---
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 AMY SUN is a 67 year old currently undergoing hyperbaric oxygen therapy for radionecrosis of the soft tissue and left mandible. Progress: The patient appears to be tolerating hyperbaric oxygen therapy well. Today's session represents the 30th such session of hyperbaric oxygen therapy. Tolerance of hyperbaric oxygen therapy: Hyperbaric oxygen therapy was administered as per the facility protocol. The patient tolerated hyperbaric oxygen therapy well, without complaints or complications. Upon emergence from the hyperbaric chamber, the patient's vital signs remained stable. He was discharged in good condition. Past Medical History Allergies/Adverse Reactions: Allergies No Known Allergies Allergy (Verified 10/31/17 08:36) Home Medications: Ambulatory Orders Medication Instructions Recorded Valsartan 160 mg PO 12/18/17 Smoking Status: Former smoker Tobacco Use: Non-smoker Physical Exam Vital Signs Temp Pulse Resp BP 96.7 F L 64 16 123/81 H 02/02/18 14:41 02/02/18 14:41 02/02/18 14:41 02/02/18 14:41 General: Alert, Oriented x3, Cooperative, No apparent distress HEENT: Atraumatic, Normocephalic Lungs: Normal air movement Psych/Mental Status: Normal Affect Assessment/Plan The patient appears to be tolerating hyperbaric oxygen therapy well, which will be continued as per the patient's medical plan.
[2018-02-05 08:25] VITALS: BP 140/99; BP 143/93; PULSE 55; PULSE 68; RESP 16; RESP 18; TEMP 36.2; TEMP 36.6
--- NOTE | 2018-02-05 08:49 | PCM.HBO.PN ---
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 AMY SUN is a 67 year old currently undergoing hyperbaric oxygen therapy for radionecrosis of the soft tissue and left mandible. Progress: The patient appears to be tolerating hyperbaric oxygen therapy well. Today's session represents the 31st such session of hyperbaric oxygen therapy. Tolerance of hyperbaric oxygen therapy: Hyperbaric oxygen therapy was administered as per the facility protocol. The patient tolerated hyperbaric oxygen therapy well, without complaints or complications. Upon emergence from the hyperbaric chamber, the patient's vital signs remained stable. He was discharged in good condition. Past Medical History Allergies/Adverse Reactions: Allergies No Known Allergies Allergy (Verified 10/31/17 08:36) Home Medications: Ambulatory Orders Medication Instructions Recorded Valsartan 160 mg PO 12/18/17 Smoking Status: Former smoker Tobacco Use: Non-smoker Physical Exam Vital Signs Temp Pulse Resp BP 97.8 F 68 18 143/93 H 02/05/18 08:25 02/05/18 08:25 02/05/18 08:25 02/05/18 08:25 General: Alert, Oriented x3, Cooperative, No apparent distress HEENT: Atraumatic, Normocephalic Lungs: Normal air movement Psych/Mental Status: Normal Affect Assessment/Plan The patient appears to be tolerating hyperbaric oxygen therapy well, which will be continued as per the patient's medical plan.
[2018-02-06 08:23] VITALS: BP 141/96; BP 191/106; PULSE 61; PULSE 62; RESP 16; RESP 18; TEMP 35.9; TEMP 36.4
--- NOTE | 2018-02-06 12:14 | PCM.HBO.PN ---
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 AMY SUN is a 67 year old currently undergoing hyperbaric oxygen therapy for radionecrosis of the soft tissue and left mandible. Progress: The patient appears to be tolerating hyperbaric oxygen therapy well. Today's session represents the 31st such session of hyperbaric oxygen therapy. Tolerance of hyperbaric oxygen therapy: Hyperbaric oxygen therapy was administered as per the facility protocol. The patient tolerated hyperbaric oxygen therapy well, without complaints or complications. Upon emergence from the hyperbaric chamber, the patient's vital signs remained stable. He was discharged in good condition. Past Medical History Allergies/Adverse Reactions: Allergies No Known Allergies Allergy (Verified 10/31/17 08:36) Home Medications: Ambulatory Orders Medication Instructions Recorded Valsartan 160 mg PO 12/18/17 Smoking Status: Former smoker Tobacco Use: Non-smoker Physical Exam Vital Signs Temp Pulse Resp BP 97.6 F L 62 18 141/96 H 02/06/18 08:23 02/06/18 08:23 02/06/18 08:23 02/06/18 08:23 Assessment/Plan The patient appears to be tolerating hyperbaric oxygen therapy well, which will be continued as per the patient's medical plan.
[2018-02-11 11:51] VITALS: BP 141/97; BP 151/93; PULSE 57; PULSE 67; RESP 16; RESP 18; TEMP 36.3; TEMP 36.5
--- NOTE | 2018-02-11 13:08 | HBO.PN.PCM_ITS ---
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 AMY SUN is a 67 year old currently undergoing hyperbaric oxygen therapy for radionecrosis of the soft tissue and left mandible. Progress: The patient appears to be tolerating hyperbaric oxygen therapy well. Today's session represents the 33rd such session of hyperbaric oxygen therapy. Tolerance of hyperbaric oxygen therapy: Hyperbaric oxygen therapy was admin istered as per the facility protocol. The patient tolerated hyperbaric oxygen therapy well, without complaints or complications. Upon emergence from the hyperbaric chamber, the patient's vital signs remained stable. He was discharged in good condition. Past Medical History Allergies/Adverse Reactions: Allergies No Known Allergies Allergy (Verified 10/31/17 08:36) Home Medications: Ambulatory Orders Medication Instructions Recorded Valsartan 160 mg PO 12/18/17 Smoking Status: Former smoker Tobacco Use: Non-smoker Physical Exam Vital Signs Temp Pulse Resp BP 97.7 F L 67 18 141/97 H 02/11/18 11:51 02/11/18 11:51 02/11/18 11:51 02/11/18 11:51 General: Alert, Oriented x3, Cooperative, No apparent distress HEENT: Atraumatic, TM's Clear Lungs: Clear to auscultation, Normal air movement Cardiovascular: Regular rate, Regular Rhythm Psych/Mental Status: Normal Affect, Appropriate, Alert and oriented to time, place, person, mood and affect Assessment/Plan The patient appears to be tolerating hyperbaric oxygen therapy well, which will be continued as per the patient's medical plan.
[2018-02-12 13:04] VITALS: BP 135/107; BP 178/102; PULSE 67; RESP 16; TEMP 36.3; TEMP 36.6
--- NOTE | 2018-02-12 13:46 | HBO.PN.PCM_ITS ---
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 AMY SUN is a 67 year old currently undergoing hyperbaric oxygen therapy for radionecrosis of the soft tissue and left mandible. Progress: The patient appears to be tolerating hyperbaric oxygen therapy well. Today's session represents the 34rd such session of hyperbaric oxygen therapy. Tolerance of hyperbaric oxygen therapy: Hyperbaric oxygen therapy was admin istered as per the facility protocol. The patient tolerated hyperbaric oxygen therapy well, without complaints or complications. Upon emergence from the hyperbaric chamber, the patient's vital signs remained stable. He was discharged in good condition. Past Medical History Allergies/Adverse Reactions: Allergies No Known Allergies Allergy (Verified 10/31/17 08:36) Home Medications: Ambulatory Orders Medication Instructions Recorded Valsartan 160 mg PO 12/18/17 Smoking Status: Former smoker Tobacco Use: Non-smoker Physical Exam Vital Signs Temp Pulse Resp BP 97.9 F 67 16 135/107 H 02/12/18 13:04 02/12/18 13:04 02/12/18 13:04 02/12/18 13:04 General: Alert, Oriented x3, Cooperative, No apparent distress HEENT: Atraumatic, PERRLA, TM's Clear Lungs: Clear to auscultation, Normal air movement Cardiovascular: Regular rate, Regular Rhythm Psych/Mental Status: Normal Affect, Appropriate, Alert and oriented to time, place, person, mood and affect Assessment/Plan The patient appears to be tolerating hyperbaric oxygen therapy well, which will be continued as per the patient's medical plan.
[2018-02-13 08:25] VITALS: BP 155/84; BP 189/98; PULSE 54; PULSE 58; RESP 16; RESP 18; TEMP 36.3
--- NOTE | 2018-02-13 09:06 | PCM.HBO.PN ---
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 AMY SUN is a 67 year old currently undergoing hyperbaric oxygen therapy for radionecrosis of the soft tissue and left mandible. Progress: The patient appears to be tolerating hyperbaric oxygen therapy well. Today's session represents the 35th such session of hyperbaric oxygen therapy. Tolerance of hyperbaric oxygen therapy: Hyperbaric oxygen therapy was administered as per the facility protocol. The patient tolerated hyperbaric oxygen therapy well, without complaints or complications. Upon emergence from the hyperbaric chamber, the patient's vital signs remained stable. He was discharged in good condition. Past Medical History Allergies/Adverse Reactions: Allergies No Known Allergies Allergy (Verified 10/31/17 08:36) Home Medications: Ambulatory Orders Medication Instructions Recorded Valsartan 160 mg PO 12/18/17 Smoking Status: Former smoker Tobacco Use: Non-smoker Physical Exam Vital Signs Temp Pulse Resp BP 97.9 F 67 16 135/107 H 02/12/18 13:04 02/12/18 13:04 02/12/18 13:04 02/12/18 13:04 Assessment/Plan The patient appears to be tolerating hyperbaric oxygen therapy well, which will be continued as per the patient's medical plan.
--- NOTE | 2018-02-13 10:35 | NURSING ---
Patient will follow up with his oral surgeon, Dr. Cotto one week after he completes his HBOTx.
[2018-02-16 08:33] VITALS: BP 162/65; BP 168/102; PULSE 54; PULSE 57; RESP 16; RESP 18; TEMP 36.2; TEMP 36.7
--- NOTE | 2018-02-19 12:45 | PCM.HBO.PN ---
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 AMY SUN is a 67 year old currently undergoing hyperbaric oxygen therapy for radionecrosis of the soft tissue and left mandible. Progress: The patient appears to be tolerating hyperbaric oxygen therapy well. Today's session represents the 36th such session of hyperbaric oxygen therapy. Tolerance of hyperbaric oxygen therapy: Hyperbaric oxygen therapy was administered as per the facility protocol. The patient tolerated hyperbaric oxygen therapy well, without complaints or complications. Upon emergence from the hyperbaric chamber, the patient's vital signs remained stable. He was discharged in good condition. Past Medical History Allergies/Adverse Reactions: Allergies No Known Allergies Allergy (Verified 10/31/17 08:36) Home Medications: Ambulatory Orders Medication Instructions Recorded Valsartan 160 mg PO 12/18/17 Smoking Status: Former smoker Tobacco Use: Non-smoker Physical Exam Vital Signs Temp Pulse Resp BP 98.1 F 57 L 18 162/65 H 02/16/18 08:33 02/16/18 08:33 02/16/18 08:33 02/16/18 08:33 General: Alert, Oriented x3, Cooperative HEENT: Atraumatic, PERRLA, TM's Clear - Left TM mildly occluded with cerumen. Lungs: Clear to auscultation, Normal air movement Cardiovascular: Regular rate Psych/Mental Status: Normal Affect, Appropriate Assessment/Plan The patient appears to be tolerating hyperbaric oxygen therapy well, which will be continued as per the patient's medical plan. Code Visit 92050
--- NOTE | 2018-02-19 12:49 | HBO.PN.PCM_ITS ---
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 AMY SUN is a 67 year old currently undergoing hyperbaric oxygen therapy for radionecrosis of the soft tissue and left mandible. Progress: The patient appears to be tolerating hyperbaric oxygen therapy well. Today's session represents the 36th such session of hyperbaric oxygen therapy. Tolerance of hyperbaric oxygen therapy: Hyperbaric oxygen therapy was admin istered as per the facility protocol. The patient tolerated hyperbaric oxygen therapy well, without complaints or complications. Upon emergence from the hyperbaric chamber, the patient's vital signs remained stable. He was discharged in good condition. Past Medical History Allergies/Adverse Reactions: Allergies No Known Allergies Allergy (Verified 10/31/17 08:36) Home Medications: Ambulatory Orders Medication Instructions Recorded Valsartan 160 mg PO 12/18/17 Smoking Status: Former smoker Tobacco Use: Non-smoker Physical Exam Vital Signs Temp Pulse Resp BP 98.1 F 57 L 18 162/65 H 02/16/18 08:33 02/16/18 08:33 02/16/18 08:33 02/16/18 08:33 General: Alert, Oriented x3, Cooperative HEENT: Atraumatic, PERRLA, TM's Clear - Left TM mildly occluded with cerumen. Lungs: Clear to auscultation, Normal air movement Cardiovascular: Regular rate Psych/Mental Status: Normal Affect, Appropriate Assessment/Plan The patient appears to be tolerating hyperbaric oxygen therapy well, which will be continued as per the patient's medical plan. Code Visit 72849
== END 2018-02-16 23:59 ==
LOC: WC 08:00
PROVIDERS: Referring Provider Nurse Practitioner; Visit Provider Nurse Practitioner
DX: L59.8 Other specified disorders of the skin and subcutaneous tissue related to radiation (principal); Y84.2 Radiological procedure and radiotherapy as the cause of abnormal reaction of the patient, or of later complication, without mention of misadventure at the time of the procedure; Z87.891 Personal history of nicotine dependence; C02.9 Malignant neoplasm of tongue, unspecified
CPT/HCPCS: 99183; G0277

== ENCOUNTER 2018-02-23 08:00 | Outpatient (RCR) | payer MEDICARE, OTHER, SELFPAY ==
[2018-02-17 00:56] VITALS: BP 168/102; PULSE 54; RESP 16; TEMP 36.2
[2018-02-18 08:33] VITALS: BP 168/92; BP 177/92; PULSE 59; PULSE 60; RESP 18; TEMP 36.1; TEMP 36.7
--- NOTE | 2018-02-18 09:16 | HBO.PN.PCM_ITS ---
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 Progress: The patient appears to be tolerating hyperbaric oxygen therapy well. Today's session represents the 37th such session on hyperbaric oxygen therapy. Tolerance of hyperbaric oxygen therapy: Hyperbaric oxygen therapy was a dministered as per the facility protocol. The patient tolerated hyperbaric oxygen therapy well, without complaints or complications. Upon emergence from the hyperbaric chamber, the patient's vital signs remained stable. He was discharged in good condition. Past Medical History Allergies/Adverse Reactions: Allergies No Known Allergies Allergy (Verified 10/31/17 08:36) Home Medications: Ambulatory Orders Medication Instructions Recorded Valsartan 160 mg PO 12/18/17 Smoking Status: Former smoker Tobacco Use: Non-smoker Physical Exam Vital Signs Temp Pulse Resp BP 98.1 F 59 L 18 177/92 H 02/18/18 08:33 02/18/18 08:33 02/18/18 08:33 02/18/18 08:33 General: Alert, Oriented x3, Cooperative, No apparent distress HEENT: Atraumatic, TM's Clear Lungs: Clear to auscultation, Normal air movement, No rhonchi, No wheeze Cardiovascular: Regular rate, Regular Rhythm Psych/Mental Status: Normal Affect, Appropriate, Alert and oriented to time, place, person, mood and affect Assessment/Plan The patient appears to be tolerating hyperbaric oxygen therapy well, which will be continued as per the patient's medical plan.
[2018-02-19 09:08] VITALS: BP 139/88; BP 149/79; PULSE 52; PULSE 62; RESP 16; RESP 18; TEMP 36.2; TEMP 36.6
--- NOTE | 2018-02-19 09:09 | HBO.PN.PCM_ITS ---
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 Progress: The patient appears to be tolerating hyperbaric oxygen therapy well. Today's session represents the 38th such session on hyperbaric oxygen therapy. Tolerance of hyperbaric oxygen therapy: Hyperbaric oxygen therapy was a dministered as per the facility protocol. The patient tolerated hyperbaric oxygen therapy well, without complaints or complications. Upon emergence from the hyperbaric chamber, the patient's vital signs remained stable. He was discharged in good condition. Past Medical History Allergies/Adverse Reactions: Allergies No Known Allergies Allergy (Verified 10/31/17 08:36) Home Medications: Ambulatory Orders Medication Instructions Recorded Valsartan 160 mg PO 12/18/17 Smoking Status: Former smoker Tobacco Use: Non-smoker Physical Exam Vital Signs Temp Pulse Resp BP 98.1 F 59 L 18 177/92 H 02/18/18 08:33 02/18/18 08:33 02/18/18 08:33 02/18/18 08:33 General: Alert, Oriented x3, Cooperative HEENT: Atraumatic, TM's Clear Lungs: Clear to auscultation, Normal air movement Cardiovascular: Regular rate, Regular Rhythm Psych/Mental Status: Normal Affect, Appropriate, Alert and oriented to time, place, person, mood and affect Assessment/Plan The patient appears to be tolerating hyperbaric oxygen therapy well, which will be continued as per the patient's medical plan.
[2018-02-20 08:27] VITALS: BP 140/96; BP 148/79; PULSE 49; PULSE 64; RESP 16; RESP 18; TEMP 35.9; TEMP 36.2
--- NOTE | 2018-02-20 09:57 | PCM.HBO.PN ---
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 Progress: The patient appears to be tolerating hyperbaric oxygen therapy well. Today's session represents the 38th such session on hyperbaric oxygen therapy. Tolerance of hyperbaric oxygen therapy: Hyperbaric oxygen therapy was administered as per the facility protocol. The patient tolerated hyperbaric oxygen therapy well, without complaints or complications. Upon emergence from the hyperbaric chamber, the patient's vital signs remained stable. He was discharged in good condition. Past Medical History Allergies/Adverse Reactions: Allergies No Known Allergies Allergy (Verified 10/31/17 08:36) Home Medications: Ambulatory Orders Medication Instructions Recorded Valsartan 160 mg PO 12/18/17 Smoking Status: Former smoker Tobacco Use: Non-smoker Physical Exam Vital Signs Temp Pulse Resp BP 97.2 F L 64 18 140/96 H 02/20/18 08:27 02/20/18 08:27 02/20/18 08:27 02/20/18 08:27 Assessment/Plan The patient appears to be tolerating hyperbaric oxygen therapy well, which will be continued as per the patient's medical plan.
[2018-02-23 08:45] VITALS: BP 134/98; BP 136/90; PULSE 51; PULSE 65; RESP 18; TEMP 36.1; TEMP 36.2
--- NOTE | 2018-02-23 18:29 | PCM.HBO.PN ---
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 Progress: The patient appears to be tolerating hyperbaric oxygen therapy well. Today's session represents the 40th such session on hyperbaric oxygen therapy. Tolerance of hyperbaric oxygen therapy: Hyperbaric oxygen therapy was administered as per the facility protocol. The patient tolerated hyperbaric oxygen therapy well, without complaints or complications. Upon emergence from the hyperbaric chamber, the patient's vital signs remained stable. He was discharged in good condition. Past Medical History Allergies/Adverse Reactions: Allergies No Known Allergies Allergy (Verified 10/31/17 08:36) Home Medications: Ambulatory Orders Medication Instructions Recorded Valsartan 160 mg PO 12/18/17 Smoking Status: Former smoker Tobacco Use: Non-smoker Physical Exam Vital Signs Temp Pulse Resp BP 97 F L 65 18 134/98 H 02/23/18 08:45 02/23/18 08:45 02/23/18 08:45 02/23/18 08:45
--- NOTE | 2018-02-24 00:29 | HBO.PN.PCM_ITS ---
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 Progress: The patient appears to be tolerating hyperbaric oxygen therapy well. Today's session represents the 40th such session on hyperbaric oxygen therapy. Tolerance of hyperbaric oxygen therapy: Hyperbaric oxygen therapy was a dministered as per the facility protocol. The patient tolerated hyperbaric oxygen therapy well, without complaints or complications. Upon emergence from the hyperbaric chamber, the patient's vital signs remained stable. He was discharged in good condition. Past Medical History Allergies/Adverse Reactions: Allergies No Known Allergies Allergy (Verified 10/31/17 08:36) Home Medications: Ambulatory Orders Medication Instructions Recorded Valsartan 160 mg PO 12/18/17 Smoking Status: Former smoker Tobacco Use: Non-smoker Physical Exam Vital Signs Temp Pulse Resp BP 97 F L 65 18 134/98 H 02/23/18 08:45 02/23/18 08:45 02/23/18 08:45 02/23/18 08:45
== END 2018-03-19 23:59 ==
LOC: WC 08:00
PROVIDERS: Referring Provider Nurse Practitioner; Visit Provider Nurse Practitioner
DX: L59.8 Other specified disorders of the skin and subcutaneous tissue related to radiation (principal); Y84.2 Radiological procedure and radiotherapy as the cause of abnormal reaction of the patient, or of later complication, without mention of misadventure at the time of the procedure; C02.9 Malignant neoplasm of tongue, unspecified; Z87.891 Personal history of nicotine dependence
CPT/HCPCS: 99183; G0277

== ENCOUNTER → 2018-02-26 15:02 | Outpatient (CLI) | payer MEDICARE, OTHER, SELFPAY ==
--- NOTE | 2018-02-26 13:30 | BON_PTH ---
PATIENT: AMY SUN LOC: [facility]#:[id number] AGE/SX: 74/M ROOM: RE02/26/[address]: Dr. Kieran Cotto, VAHID : 1950 BED: DIS: SPEC #: [id number] RECD: 02/26/18 15:15 STATUS: ОЛЕГ AVILA #: [id number] ALIYA: 02/26/18 13:[address]: Kieran Cotto DEPT: SURGICAL PATHOLOGY RECD BY: Megan Murray ENTERED: 02/26/18 15:51 SP TYPE: Bone OTHR DR: Out of Town Doctor Tissues: Mandible, NOS Procedures: PAS Fungus (control) Decalcification bone/plaque Special Stain Group I Surgery Specimen Level IV HEADER OPERATION: Biopsy bone PRE-OP DIAGNOSIS: Radiation induced TISSUE SUBMITTED: Necrotic bone left mandible MICROSCOPIC DIAGNOSIS Left mandible necrotic bone, biopsy: Acute osteomyelitis with bacterial colonies suggestive of actinomyces. Necrotic bone. Rare fragments of squamous epithelium with associated mild acute and chronic inflammation. AM:dorothea 03/04/18 COMMENT PASF stain with matched control does not reveal fungal organisms. Matched control is appropriate. Clinical correlation is necessary. Case has been reviewed in consultation with Dr. Acuña who concurs with the above diagnosis. IDC:SEBASTIAN MICROSCOPIC DESCRIPTION Slides are reviewed. GROSS DESCRIPTION Received fresh and postfixed in formalin is one container labeled with the patient's name and not further designated. The specimen consists of multiple pieces of bone that in aggregate measure 2.5 x 2.5 x 0.3 cm. The entire specimen is submitted in one cassette after decalcification. / SEBASTIAN:dorothea 02/26/18 TC:2 CPT: 70062, 60685, 75098
== END ==
PROVIDERS: Referring Provider Dentist Oral and Maxillofacial Surgery; Visit Provider Dentist Oral and Maxillofacial Surgery
DX: M87.88 Other osteonecrosis, other site (principal); M27.2 Inflammatory conditions of jaws
CPT/HCPCS: 88305; 88311; 88312

== ENCOUNTER 2025-01-12 10:21 | Observation (INO) | payer MEDICARE, SELFPAY ==
--- NOTE | 2025-01-03 17:18 | PAT.ANESEVAL ---
Pre-Assessment Diagnosis/Proposed Procedure Planned Operative Procedure(s): TURP Anesthesia History Anesthesia History - inspector rubber stamp die: Anesthesia History - inspector rubber stamp die Hx Hospitalization Yes: 12/15/2024-12/18/2024 01/03/25 10:26 SEPSIS FROM LUNG INFECTION/ MRSA/NASAL OINTMENT Any Problems With Anesthesia No 01/03/25 10:26 Cholinesterase deficiency No 01/03/25 10:26 You/Your Family Experience No 01/03/25 10:26 fever (hyperthermia) with Relationship Recent Exposure to Contagious Disease Does patient have nerve No 01/03/25 10:26 stimulator Patient instructed to have device shut off --Does patient have Pacemaker or ICD? When Was Last Pacemaker Check QUESTION #4 FULL TEXT: You/Your Family Experience fever (hyperthermia) with Anesthesia Last Oral Intake Last Oral intake: Last Oral Intake NPO since Meds taken in AM with sips of water? Meds patient instructed to take am of surgery PONV PONV - inspector rubber stamp die: PONV - inspector rubber stamp die Female No 01/03/25 10:26 HX of Motion Sickness No 01/03/25 10:26 HX of N/V After Surgery No 01/03/25 10:26 Non-Smoker Yes 01/03/25 10:26 Duration of Surgery greater Yes 01/03/25 10:26 than 60 minutes Number of Risk Factors 2 01/03/25 10:26 PONV Score Moderate Risk 01/03/25 10:26 Respiratory Assessment Respiratory Assessment - inspector rubber stamp die: Respiratory Tract Infection Hx - inspector rubber stamp die Hx Respiratory Tract Infection Yes: MRSA INFECTION OF LUNGS 01/03/25 10:26 STOP Sleep Apnea STOP Sleep Apnea - inspector rubber stamp die: STOP Sleep Apnea - inspector rubber stamp die Hx Hypertension Yes: NO MEDS FOR 1-2 YRS/ 01/03/25 10:26 CURRENTLY HYPOTENSION Hx Sleep Apnea Yes: NO MACHINE/NOT 01/03/25 10:26 DIAGNOSED CPAP No 01/03/25 10:26 BIPAP No 01/03/25 10:26 Do you snore loudly (louder than talking or can be heard Do you often feel tired/ fatigued/ sleepy during daytime? Has anyone observed you stop breathing during sleep? STOP Results Positive 01/03/25 10:26 QUESTION #5 FULL TEXT : Do you snore loudly (louder than talking or can be heard through closed doors)? 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 confused, unrespo /Reproduction History /Reproductive History - inspector rubber stamp die: /Reproductive Hx- inspector rubber stamp die Hx Now No 01/03/25 10:26 Gestational Age (in weeks): EDC: Hx Hx Para Hx Section SAB No 01/03/25 10:26 Does the father of the baby or his family experience fever w Father of the baby Malignant Hypertension history comment [facility] Medical History (Updated 01/03/25 @ 10:50 by Sarah Nova) Deafness Wears hearing aid MRSA infection Cancer Depression Anxiety Arthritis Indwelling urethral catheter present Prostate disease High cholesterol Pulmonary embolism PVD (peripheral vascular disease) Back pain Migraine headache Syncope Dietary restriction Difficulty swallowing History of GI bleed Gastric reflux Former smoker Sleep apnea On home oxygen therapy COPD (chronic obstructive pulmonary disease) Chronic cough History of pain when walking History of echocardiogram Hypertension History of irregular heartbeat Home Medications ?Medication ?Instructions ?Recorded ?Last Taken ?Type Lactobacillus acidophilus 250 500 mmu cells PO DAILY 01/03/25 Unknown History million cell capsule (Probiotic Acidophilus) apixaban 5 mg tablet (Eliquis) 5 mg feeding tube BID 01/03/25 01/01/25 History doxazosin 4 mg tablet 4 mg feeding tube QHS 01/03/25 Unknown History famotidine 20 mg tablet (Pepcid) 20 mg feeding tube BID 01/03/25 Unknown History finasteride 5 mg tablet 5 mg feeding tube QHS 01/03/25 Unknown History guaifenesin 1,200 mg tablet, 2,400 mg PO BID 01/03/25 Unknown History extended release 12 hr (Mucinex) mupirocin 2 % topical ointment 1 applic topical BID 01/03/25 Unknown History (Centany) peg 400-propylene glycol (PF) 0.4 1 drp EACH EYE Q6H PRN dry eye(s) 01/03/25 Unknown History %-0.3 % eye drops in a dropperette roflumilast 500 mcg tablet 500 mcg feeding tube QHS 01/03/25 Unknown History sertraline 50 mg tablet 50 mg feeding tube QHS 01/03/25 Unknown History sumatriptan succinate 50 mg tablet 50 mg PO Q2H PRN migraine headache 01/03/25 Unknown History umeclidinium 62.5 mcg-vilanterol 1 ea inhalation DAILY 01/03/25 12/27/24 History 25 mcg/actuation powdr for inhalation Allergy/AdvReac Type Severity Reaction Status Date / Time budesonide Allergy Severe Anaphylaxis Verified 01/03/25 10:15 revefenacin Allergy Severe Anaphylaxis Verified 01/03/25 10:15 Ipratropium Analogues AdvReac Severe Other Verified 01/03/25 10:15 Surgical History (Updated 01/03/25 @ 10:50 by Sarah Nova) History of lung biopsy Hx of oral surgery Hx of right cataract extraction Hx of left cataract extraction History of esophagogastroduodenoscopy (EGD) Hx of colonoscopy History of percutaneous endoscopic gastrostomy (PEG) History of radical neck dissection Hx of hernia repair Social History Smoking Status: Former smoker Audit: Pertinent Findings Pertinent Findings EKG Perinent findings: December 15, 2024. Sinus rhythm with PAC. Compared to July 30, 2024 nonspecific T wave abnormalities are no longer seen. Echo (EF%) pertinent findings: July 30, 2024. EF of greater than 80%. Normal wall motion. Normal RV function. July 05, 2024 EF is 65 to 70%. Possible PFO by color-flow. No significant valvular or pericardial abnormalities. No pulmonary hypertension. Findings similar to that of December 2023. Recommendation Anesthesia Recommendation Anesthesia recommendation: OPTIMIZED for anesthesia
[2025-01-12] VITALS (11 sets, daily range): BP systolic 101–157; BP diastolic 66–92; PULSE 54–92; RESP 15–18; TEMP 36.4–36.9; O2SAT 92–97; BMI 24.5
--- OUTSIDE RECORDS SUMMARY | 2025-01-12 06:40 | XMS RPT_ITS | CCD ---
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 Name Role Phone Richy Emerson Unavailable Richy Emerson Unavailable Vasu Jaimes Unavailable Glenys Calloway Unavailable Richy Emerson Unavailable Richy Emerson MD Primary Care Provider Richy Emerson Primary Care Provider [phone] Richy Emerson Primary Care Provider Richy Emerson MD Primary Care Provider Richy Emerson Primary Care Provider Richy Emerson MD Primary Care Provider Gunjan Godoy MD Primary Care Provider [phone] Arley GODOY Attending UnavailGUNJAN Washburn Primary Care Unavailable Arley GODOY Referring UnavailArley Washburn Referring UnavailYASH Hernandez Attending Unavailable YASH MAYER Admitting Unavailable GUNJAN GODOY Primary Care Unavailable Gunjan Godoy MD Primary Care Provider Jim Holder MD Unavailable Gunjan Godoy MD Primary Care Provider Zoya Hillman RD Unavailable Gunjan Godoy MD Primary Care Provider [phone] Gunjan Godoy MD Primary Care Provid er Nasra KATINAGavin Primary Care Provider Amber DOUlices R. Primary Care Provider Richy Emerson Primary Care Provider [phone] Unavailable Primary Care Provider Unavailabl e Generic Provider , No Assigned Pcp Primary Car e Provider Unavailable Amber DO, Ulices Primary Care Provider [phone] AMBER, ULICES Primary Care Unavailable AMURAO YOBANI Attending Unavailable EAGLESTON, GUNJAN M Referring Unavailable AMURAO, YOBANI Attending Unavailable EAGLESTON, GUNJAN M Primary Care Unavailable EAGLESTON, GUNJAN M Referring Unavailable AMURAO, YOBANI Attending Unavailable EAGLESTON, GUNJAN M Primary Care Unavailable EAGLESTON, GUNJAN M Referring Unavailable AMURAO, YOBANI Attending Unavailable AMURAO, YOBANI Referring Unavailable EAGLESTON, GUNJAN M Primary Care Unavailable EAGLESTON, GUNJAN M Primary Care Unavailable AMURAO, YOBANI Attending Unavailable EAGLESTON, GUNJAN M Referring Unavailable Amber DO, Ulices Primary Care Provider [phone] VASU JAIMES Attending Unavailable THOMGLENNA, VASU R Referring Unavailable GENERIC PROVIDER, NO ASSIGNED PCP Primary Care Unavailable ERNESTINA KRISHNAMURTHY Attending Unavailable GENERIC PROVIDER, NO ASSIGNED PCP Primary Care Unavailable AMBER, ULICES Primary Care Unavailable VASU JAIMES R Attending Unavailable PATIENCE, VASU R Referring Unavailable AMBER, ULICES Primary Care Unavailable Yobani Bojorquez MD, V. Unavailable Nasir Melissa MD Unavailable Amber DO, Ulices Primary Care Provider AMBER, ULICES Primary Care Unavailable AMURAO, YOBANI Attending Unavailable AMURAO, YOBANI Referring Unavailable BURTON GEORGE Admitting Unavailable BURTON GEROGE Attending Unavailable BURTON GEORGE Referring Unavailable AMBER, ULICES Primary Care Unavailable ANGELA FITCH Attending Unavailable AMBER, ULICES Primary Care Unavailable CONSULT, JOEY CARDIOLOGY Consulting Unavaila ble ANGELA FITCH Admitting Unavailable ELISEO BRENNAN Referring Unavailable AMBER, ULICES Primary Care Unavailable AMURAO, YOBANI Attending Unavailable EAGLESTON, GUNJAN M Referring Unavailable AMBER, ULICES Primary Care Unavailable YOBANI BOJORQUEZ Attending Unavailable YOBANI BOJORQUEZ Referring Unavailable Amber DO, Ulices R Primary Care Provider [phone] THOMGLENNA, VASU R Attending Unavailable AMBER, ULICES Primary Care Unavailable THOMAE, VASU R Attending Unavailable THOMAE, VASU R Attending Unavailable GENERIC PROVIDER, NO ASSIGNED PCP Primary Care Unavailable THOMVASU MANZANARES R Attending Unavailable AMBER, ULICES Primary Care Unavailable THOMGLENNA, VASU R Attending Unavailable AMBER, ULICES Primary Care Unavailable Gunjan Godoy MD Primary Care Provid er Amber, Ulices Primary Care Provider Unavailable Primary Care Provider UnavailYobani Hughes MD, V. Unavailable AMBER, ULICES R. Primary Care Unavailable AMBER, ULICES R. Attending Unavailable AMBER, ULICES R. Attending Unavailable AMBER, ULICES R. Primary Care Unavailable AMBER, ULICES R. Primary Care Unavailable AMBER, ULICES R. Attending Unavailable AMBER, ULICES R. Primary Care Unavailable GAVIN HAMMONDS Attending Unavailabl e AMBER, ULICES R. Primary Care Unavailable GAVIN HAMMONDS Attending Unavailabl e AMBER, ULICES R. Primary Care Unavailable TESS FLORES Attending Unavailable AMBER, ULICES R. Attending Unavailable AMBER, ULICES R. Primary Care Unavailable AMBER, ULICES R. Primary Care Unavailable AMBER, ULICES R. Attending Unavailable AMBER, ULICES R. Primary Care Unavailable AMBER, ULICES R. Attending Unavailable AMBER, ULICES R. Primary Care Unavailable AMBER, ULICES R. Attending Unavailable AMBER, ULICES R. Primary Care Unavailable KAUSHIK WHITFIELD Attending Unavailable AMBER, ULICES R. Primary Care Unavailable GAVIN HAMMONDS Attending Unavailabl e AMBER, ULICES R. Primary Care Unavailable AMBER, ULICES R. Attending Unavailable AMBER, ULICES R. Primary Care Unavailable AMBER, ULICES R. Attending Unavailable AMBER, ULICES R. Primary Care Unavailable AMBER, ULICES R. Attending Unavailable AMBER, ULICES R. Primary Care Unavailable AMBER, ULICES R. Attending Unavailable AMBER, ULICES R. Primary Care Unavailable AMBER, ULICES R. Attending Unavailable Town Doctor, Out of Primary Care Unavailable Nasir Melissa Attending Unavailable BelénNasir Admitting Unavailable AMBER, ULICES R Primary Care Unavailable BRANDON, SUSHMA B Referring Unavailable BRANDON, SUSHMA B Attending Unavailable AMBER, ULICES R Primary Care Unavailable SARAH FERNANDEZ Attending Unavailable AMBER, ULICES R Primary Care Unavailable SARAH FERNANDEZ Referring Unavailable AMBER, ULICES R Primary Care Unavailable [facility], [facility] Unavai lable BRANDON, SUSHMA B Referring Unavailable [facility], [facility] Primary [facility] Unavai lable BRANDON, SUSHMA B Referring Unavailable AMBER, ULICES R Primary Care Unavailable BRANDON, SUSHMA B Referring Unavailable [facility], [facility] Primary [facility] Unavai lable BRANDON, SUSHMA B Referring Unavailable [facility], [facility] Unavai lable BRANDON, SUSHMA B Referring Unavailable [facility], [facility] Unavai lable RAFYZOYA Attending Unavailable [facility] Unavai lable BRANDON, SUSHMA B Referring Unavailable [facility], [facility] Unavai lable RAFYZOYA Attending Unavailable [facility], [facility] Unavai lable BRANDON, SUSHMA B Referring Unavailable BRANDON, SUSHMA B Attending Unavailable [facility] Unavai lable RAFYZOYA Attending Unavailable [facility] Unavai lable BRANDON, SUSHMA B Referring Unavailable [facility], [facility] Unavai lable [facility] Referring Unavai lable RAFYZOYA Attending Unavailable [facility] Primary [facility] Unavai lable BRANDON, SUSHMA B Referring Unavailable OMER ADLER Attending Unavailable [facility], [facility] Primary [facility] Unavai lable BRANDON, SUSHMA B Referring Unavailable RAFYZOYA Attending Unavailable AMBER, ULICES R Primary Care Unavailable PHILLIPSNAIDA Attending Unavailable AMBER, ULICES R Primary Care Unavailable BRANDON, SUSHMA B Referring Unavailable AMBER, ULICES R Primary Care Unavailable PHILLIPSNAIDA K Referring Unavailable PHILLIPSNAIDA Attending Unavailable [facility], [facility] Primary Care Unavai lable RAFYZOYA Attending Unavailable [facility], GUNJAN FUCHS Primary Care Unavai lable [facility], GUNJAN GUALLPAELE Referring Unavai lable SUSHMA BRANDON Attending Unavailable AMBER, ULICES R. Primary Care Unavailable TONE CROWELL Attending Unavaila ble AMBER, ULICES R. Primary Care Unavailable GAVIN HAMMONDS Attending Unavailabl e SHANKGAVIN Referring Unavailabl e ABMER, ULICES R. Primary Care Unavailable AMBER, ULICES R. Attending Unavailable AMBER, ULICES R. Referring Unavailable AMBER, ULICES R. Primary Care Unavailable HOLDERCALEB Attending Unavailable AMBER, ULICES R. Primary Care Unavailable HOLDERCALEB CORONEL Attending Unavailable AMBER, ULICES R. Primary Care Unavailable CALEB HOLDER Attending Unavailable WHITFIELDKAUSHIK Attending Unavailable WHITFIELD, KAUSHIK BABCOCK Referring Unavailable AMBER, ULICES R. Primary Care Unavailable [facility] Consulting Unavai lable AMBER, ULICES R. Primary Care Unavailable SIVAKUMAR ARIAS Attending Unavailable CALEB NICOLAS Admitting Unavai lable GOBRELARRY ALEMAN Admitting Unavailable [facility] Consulting Unavai lable AMBER, ULICES R. Primary Care Unavailable SIVAKUMAR ARIAS Attending Unavailable EZIKE, MARIA G ANICETUS Consulting Unavaila ble CALEB HOLDER Referring Unavailable DIANE TONY Attending Unavailable MOSALEMAZIZA Admitting Unavailab le AMBER, ULICES R. Primary Care Unavailable Allergies Allergy Classification Reported Allergen(s) Allergy Type Date of Onset Reaction(s) Facility (20 sources) Albuterol / Ipratropium; Translations: [IPRATROPIUM-AL BUTEROL] Drug Allergy 5 Other, Other (See Comments), Intolerance [facility] (7 sources) Budesonide; Translations: [BUDESONIDE] Propensity to adverse reactions to drug 5 [facility] (7 sources) Revefenacin; Translations: [REVEFENACIN] Propensity to adverse reactions to drug 5 [facility] (20 sources) Budesonide Drug Allergy 5 Anaphylaxis [facility] (20 sources) revefenacin Drug Allergy 5 Anaphylaxis [facility] Work Phone: (1 source) ALLERGIES NOT ON FILE; Translations: [ALLERGIES NOT ON FILE] Propensity to adverse reactions (disorder) [facility] 3 Repository Medications Current Medications Medication Drug Class(es) Dates Sig (Normalized) Sig (Original) acetaminophen 250 mg / aspirin 250 mg / caffeine 65 mg oral tablet (18 sources) Platelet Aggregation Inhibitor, Nonsteroidal Anti-inflammatory Drug, Central Nervous System Stimulant, Methylxanthine take 1 tablet intragastric route every six hours as needed for pain aspirin-acetamino phen-caffeine (EXCEDRIN MIGRAINE) 250-250-65 mg per tablet 1 (one) tablet by Per G Tube route every 6 (six) hours as needed for pain . Active aspirin-acetamin ophen-caffeine (Excedrin Migraine) 250-250-65 mg tablet Take by mouth every 6 hours if needed. Active amoxicillin 875 mg / clavulanate 125 mg oral tablet (13 sources) Penicillin-class Antibacterial Start: 11-22-2024 End: 11-29-2024 take 1 tablet by mouth every twelve hours amoxicillin-clavulanate (AUGMENTIN) 875-125 mg per tablet Take 1 (one) tablet by mouth every 12 (twelve) hours for 7 days . 14 tablet 11/22/2024 9:27 AM EDT 11/22/2024 11/29/2024 Active Start: 11-22-2024 End: 11-22-2024 take 1 tablet by mouth every twelve hours 1 tablet, Oral, Every 12 hours scheduled, First dose on Fri11/22/24 at 0915, Indication: COPD Start: 06-09-2024 End: 06-14-2024 take 1 tablet by mouth twice daily amoxicillin-clavulanate (AUGMENTIN) 875-125 mg per tablet Take 1 (one) tablet by mouth 2 (two) times a day for 5 days . 10 tablet 06/09/2024 06/14/2024 Active Start: 12-25-2023 End: 03-17-2024 take 1 tablet by mouth twice daily amoxicillin-clavulanate (AUGMENTIN) 875-125 mg per tablet Take 1 (one) tablet by mouth 2 (two) times a day . 10 tablet 12/25/2023 03/17/2024 Discontinued bifidobacterium infantis 4 mg oral capsule (6 sources) Bifidobacterium infantis (ALIGN) 4 mg capsule Take by mouth. Active cefpodoxime 200 mg oral tablet (3 sources) Cephalosporin Antibacterial Start: End: take 1 tablet by mouth twice daily cefpodoxime (VANTIN) 200 MG tablet Take 1 (one) tablet (200 mg total) by mouth 2 (two) times a day for 5 days . 10 tablet 12/18/2024 12/23/2024 Active cholecalciferol 0.125 mg oral tablet (5 sources) Vitamin D Start: End: take 1 tablet by mouth once daily at mealtime Vitamin D3 125 mcg (5000 intl units) oral tablet ; 1 tab(s) orally once a day Quantity: 21 Refills: 0 Ordered: 06-Apr-2021 Carmel Cotter Start: 06-Apr-2021 End: 26-Apr-2021 Generic Substitution Allowed Comments: Take with food. Start: 04-06-2021 End: 04-26-2021 Cholecalciferol 125 MCG (500 0 UT) per tablet Take by mouth. 0 04/06/2021 04/26/2021 Active Start: 04-06-2021 End: 11-08-2021 Cholecalciferol (vitamin D3) 125 MCG (5000 UT) capsule Comment on above: Take with food. ciprofloxacin 500 mg oral tablet (2 sources) Quinolone Antimicrobial Start: 10-09-19 25 End: 10-19-19 take 1 tablet by mouth twice daily ciprofloxacin HCl (CIPRO) 500 mg tablet Take 1 tablet by mouth two times a day for 10 days. 20 tablet 10/08/2024 10/18/2024 Active enteric contrast (will be provided with radiology test) (20 sources) Start: 07-23-19 24 enteric contrast (will be provided with radiology test) For CT ABD/PEL W IVCON Routine order Administer, As Directed One Time Only, via Oral, Rectal, both Oral and Rectal, Enteric Tube, Stoma or Indwelling Catheter, Enteric Contrast as designated per enteric contrast guidelines 1 Each 07/23/2023 Active Start: 07-23-[address] (will be provided with radiology test) For CT ABD/PEL W IVCON Routine order Administer, As Directed One Time Only, via Oral, Rectal, both Oral and Rectal, Enteric Tube, Stoma or Indwelling Catheter, Enteric Contrast as designated per enteric contrast guidelines 1 Each 0 07/23/2023 Active Start: 02-14-2023 End: 06-04-2023 enteric contrast (will be pr ovided with radiology test) For CT ABD/PEL W IVCON Routine order Administer, As Directed One Time Only, via Oral, Rectal, both Oral and Rectal, Enteric Tube, Stoma or Indwelling Catheter, Enteric Contrast as designated per enteric contrast guidelines 1 Each 0 02/14/2023 06/04/2023 Discontinued Start: 02-14-[address] (will be provided with radiology test) For CT ABD/PEL W IVCON Routine order Administer, As Directed One Time Only, via Oral, Rectal, both Oral and Rectal, Enteric Tube, Stoma or Indwelling Catheter, Enteric Contrast as designated per enteric contrast guidelines 1 Each 0 02/14/2023 Active Comment on above: For CT ABD/PEL W IVC ON Routine order Administer, As Directed One Time Only, via Oral, Rectal, both Oral and Rectal, Enteric Tube, Stoma or Indwelling Catheter, Enteric Contrast as designated per enteric contrast guidelines erythromycin 0.005 mg/mg ophthalmic ointment (6 sources) Macrolide, Macrolide Antimicrobial Start: 10-08-2024 erythromycin (ROMYCIN) 5 mg/gram (0.5 %) ophthalmic ointment Use 1 application in both eyes two times a week. 10/08/2024 Active Start: 09-29-2024 End: 10-08-2024 erythromycin (ROMYCIN) 5 mg/ gram (0.5 %) ophthalmic ointment Use 1 application in both eyes daily at bedtime. 3.5 g 09/29/2024 10/08/2024 Discontinued Fiber (7 sources) Start: 07-15-2023 FIBER PO 80ml/ hr of Compleat 1.5 continuously for 24 hours. Use 1 carton of Benecalorie daily. Flush with 200ml water four times per day. 07/15/2023 Active fluconazole 150 mg oral tablet (2 sources) Azole Antifungal Start: 07-05-2024 End: 07-13-2024 take 1 tablet by mouth once daily Fluconazole 150 MG tablet Take 1 tablet by mouth daily for 7 days. 7 tablet 07/06/2024 07/13/2024 Active fluticasone propionate 0.05 mg/actuat metered dose nasal spray (20 sources) Corticosteroid Start: 11-19-2023 End: 06-28-2025 take 2 spray(s) nasal route once daily fluticasone propionate (FLONASE) 50 mcg/actuation nasal spray Indications: Postnasal drip Instill 2 (two) sprays into each nostril daily . 16 g 5 06/28/2024 06/28/2025 Start: 11-19-2023 End: 06-28-2025 take 2 spray(s) nasal route once daily fluticasone (FLONASE) 50 mcg/actuation nasal spray Use 2 sprays in each nostril once daily. 11/19/2023 06/28/2025 Active Start: 11-19-2023 End: 11-18-2024 fluticasone 50 MCG/ACT Suspe nsion nasal spray 2 sprays by Nasal route daily. 11/19/2023 11/18/2024 Active 120 actuat fluticasone propionate 0.23 mg/actuat / salmeterol 0.021 mg/actuat metered dose inhaler (2 sources) Corticosteroid, beta2-Adrenergic Agonist Start: 07-31-2024 End: 08-30-2024 take 1 puff(s) by inhalation every twelve hours Fluticasone-Salmeterol 230-21 MCG/ACT Aerosol inhaler Inhale 1 puff every 12 hours. 12 g 1 07/31/2024 08/30/2024 Active Start: 07-30-2024 End: 07-31-2024 take 1 puff(s) by inhalation every twelve hours 1 puff, Inhalation, EVERY 12 HOURS, First dose on Fri07/30/24 at 1330, Until Discontinued 12 hr guaiFENesin 600 mg extended release oral tablet (4 sources) guaiFENesin (MUC INEX) 600 mg 12 hr tablet 2 (two) tablets (1,200 mg total) by Other route every 12 (twelve) hours as needed for congestion Per G tube . Active iv contrast (will be provide d with radiology test) (20 sources) Start: 07-23-2023 iv contrast (w ill be provided with radiology test) CT Chest W -Inject, intravenously, once for 1 dose.No IV access, insert saline lock prior to the beginning of sedation, infusion, injection of imaging exam. Discontinue saline lock post exam. If Pt. has a central line or IVAD, may access for administration according to line specific nursing protocol. Once exam is complete flush line and de-access according to line specific nursing protocol in the CT contrast administration guidelines link. 1 Each 07/23/2023 Active Start: 07-23-2023 iv contrast (w ill be provided with radiology test) CT ABD/PEL -Inject, intravenously, once for 1 dose.No IV access, insert saline lock prior to the beginning of sedation, infusion, injection of imaging exam. Discontinue saline lock post exam. If Pt. has a central line or IVAD, may access for administration according to line specific nursing protocol. Once exam is complete flush line and de-access according to line specific nursing protocol in the CT contrast administration guidelines link. 1 Each 07/23/2023 Active Start: 07-23-2023 iv contrast (w ill be provided with radiology test) CT Chest W -Inject, intravenously, once for 1 dose.No IV access, insert saline lock prior to the beginning of sedation, infusion, injection of imaging exam. Discontinue saline lock post exam. If Pt. has a central line or IVAD, may access for administration according to line specific nursing protocol. Once exam is complete flush line and de-access according to line specific nursing protocol in the CT contrast administration guidelines link. 1 Each 0 07/23/2023 Active Start: 07-23-2023 iv contrast (w ill be provided with radiology test) CT ABD/PEL -Inject, intravenously, once for 1 dose.No IV access, insert saline lock prior to the beginning of sedation, infusion, injection of imaging exam. Discontinue saline lock post exam. If Pt. has a central line or IVAD, may access for administration according to line specific nursing protocol. Once exam is complete flush line and de-access according to line specific nursing protocol in the CT contrast administration guidelines link. 1 Each 0 07/23/2023 Active Start: 06-23-2023 End: 06-24-2023 iv contrast (will be provide d with radiology test) Indications: Aspiration into lower respiratory tract, subsequent encounter , History of tongue cancer CT Chest W -Inject, intravenously, once for 1 dose.No IV access, insert saline lock prior to the beginning of sedation, infusion, injection of imaging exam. Discontinue saline lock post exam. If Pt. has a central line or IVAD, may access for administration according to line specific nursing protocol. Once exam is complete flush line and de-access according to line specific nursing protocol in the CT contrast administration guidelines link. 1 Each 0 06/23/2023 06/24/2023 Active lactobacillus acidophilus [id number] unt oral capsule (1 source) Start: 04-07-2021 End: 05-06-2021 take 1 capsule by mouth once daily lactobacillus acidophilus oral capsule ; 1 cap(s) orally once a day Quantity: 30 Refills: 0 Ordered: 07-Apr-2021 Glenys Calloway Start: 07-Apr-2021 End: 06-May-2021 Generic Substitution Allowed lactobacillus rhamnosus gg [id number] unt oral capsule (20 sources) Lactobacillus rh amnosus GG (CULTURELLE) 10 billion cell capsule 1 (one) capsule by Per G Tube route every morning . Active take 1 capsule by mouth once jarvis ly Lactobacillus rhamnosus GG (CULTURELLE) 10 billion cell capsule Take 1 (one) capsule by mouth daily . Active take 1 capsule by mouth once jarvis ly Lactobacillus Rhamnosus, GG, (culturelle) capsule capsule Take 1 capsule by mouth daily. Active levoFLOXacin 750 mg oral tablet (17 sources) Quinolone Antimicrobial Start: 07-06-2024 End: 07-09-2024 take 1 tablet by mouth once daily levoFLOXacin 750 MG tablet Take 1 tablet by mouth daily for 3 days. 3 tablet 07/06/2024 07/09/2024 Active Start: 07-04-2024 End: 07-06-2024 take 750 mg intravenously every twenty-four hours 750 mg, Intravenous, Administer over 90 Minutes, EVERY 24 HOURS, First dose on 07/04/24 at 1600, Until Discontinued Start: 06-17-2023 End: 06-20-2023 take 1 tablet by mouth once daily levoFLOXacin 500 MG tablet Take 1 tablet by mouth daily for 3 days. 3 tablet 06/17/2023 06/20/2023 Start: 06-14-2023 End: 06-17-2023 take 750 mg intravenously every twenty-four hours 750 mg, Intravenous, Administer over 90 Minutes, EVERY 24 HOURS, First dose on 06/14/23 at 1900, Until Discontinued Start: 05-26-2023 End: 05-31-2023 take 1 tablet by mouth once daily levoFLOXacin 500 MG tablet Take 1 tablet by mouth daily for 5 days. 5 tablet 05/26/2023 05/31/2023 Active Start: 05-24-2023 End: 05-26-2023 take 750 mg intravenously every twenty-four hours 750 mg, Intravenous, Administer over 90 Minutes, EVERY 24 HOURS, First dose on 05/24/23 at 2300, Until Discontinued Start: 05-11-2023 End: 05-16-2023 take 1 tablet by mouth once daily levoFLOXacin 750 MG tablet Take 1 tablet by mouth daily for 5 days. 5 tablet 05/11/2023 05/16/2023 Active Start: 05-09-2023 End: 05-11-2023 take 750 mg intravenously every twenty-four hours 750 mg, Intravenous, Administer over 90 Minutes, EVERY 24 HOURS, First dose on Fri05/09/23 at 0900, Until Discontinued Start: 04-20-2023 End: 04-25-2023 take 1 tablet by mouth once daily levoFLOXacin 500 MG tablet Take 1 tablet by mouth daily for 5 days. 5 tablet 04/20/2023 04/25/2023 Active Start: 04-19-2023 End: 04-20-2023 take 750 mg intravenously every twenty-four hours 750 mg, Intravenous, Administer over 90 Minutes, EVERY 24 HOURS, First dose on 04/19/23 at 0715, Until Discontinued Start: 03-04-2023 End: 03-09-2023 take 1 tablet by mouth once daily levoFLOXacin 750 MG tablet Take 1 tablet by mouth daily for 5 days. 5 tablet 0 03/04/2023 03/09/2023 Active Start: 12-04-2021 End: 12-14-2021 take 1 tablet by mouth once daily levoFLOXacin (Levaqu in) 500 MG tablet Indications: Bronchitis Take 1 tablet by mouth daily for 10 days. 10 tablet 0 12/04/2021 12/14/2021 Active Start: 04-07-2021 End: 11-08-2021 levoFLOXacin 500 MG tablet Comment on above: Avoid prolonged or e xcessive exposure to direct and/or artificial sunlight while taking this medication.Do not take dairy products, antacids, or iron preparations within one hour of this medication.Finish all this medication unless otherwise directed by prescriber.May cause drowsiness or dizziness.Medication should be taken with plenty of water. linezolid 600 mg oral tablet (3 sources) Oxazolidinone Antibacterial Star t: 08-06 End: 11-17 take 1 tablet by mouth twice daily in the morning linezolid (ZYVOX) 600 mg tablet Take 1 (one) tablet (600 mg total) by mouth 2 (two) times a day for 7 days . 14 tablet 11/22/2024 9:27 AM EDT 11/22/2024 11/29/2024 Active methylPREDNISolone (7 sources) Corticosteroid Star t: 07-19 End: 03-08 methylPREDNISolone (MEDROL DOSEPACK) 4 mg tablet Indications: Acute on chronic respiratory failure with hypoxia (HCC) Follow package directions . 21 tablet 08/11/2024 08/17/2024 Active Start: 07-04-2024 End: 07-06-2024 40 mg, Intravenous, EVERY 12 HOURS, First dose on 07/04/24 at 2100, Until Discontinued Start: 06-15-2023 End: 06-17-2023 40 mg, Intravenous, EVERY 12 HOURS, First dose on 06/15/23 at 1015, Until Discontinued Start: 06-14-2023 End: 06-14-2023 125 mg, Intravenous, ONCE, 1 dose, On 06/14/23 at 1845 Start: 05-25-2023 End: 05-26-2023 40 mg, Intravenous, EVERY 6 HOURS, First dose on 05/25/23 at 1200, Until Discontinued Start: 05-09-2023 End: 05-11-2023 40 mg, Intravenous, EVERY 8 HOURS, First dose on Fri05/09/23 at 1400, Until Discontinued Start: 04-19-2023 End: 04-20-2023 40 mg, Intravenous, EVERY 8 HOURS, First dose on 04/19/23 at 0645, Until Discontinued Multivitamin preparation (1 source) take 1 tablet by mouth once daily Multiple Vitamins oral tablet ; 1 tab(s) orally once a day Quantity: 0 Refills: 0 Ordered: 05-Apr-2021 Win Andrea Status: Discontinued Generic Substitution Allowed Nebulizer Misc (6 sources) Start: nut tx, lact-reduced, iron (BOOST VHC) 0.09-2.25 gram-kcal/mL liqd (20 sources) Start: nut tx, lact-reduced, iron (BOOST VHC) 0.09-2.25 gram-kcal/mL liqd 52 mL by FEEDING TUBE route continuous. [place] with infinity feeding pump. Flush with an additional 33oz of water daily (divided). 51574 mL 11 12/01/2023 Active nutritional supplement-fiber (COMPLEAT 1.5) 0.07 gram-1.5 kcal/mL liqd (20 sources) Start: nutritional supplement-fiber (COMPLEAT 1.5) 0.07 gram-1.5 kcal/mL liqd 80ml/hr of Compleat 1.5 continuously for 24 hours. Use 1 carton of Benecalorie daily. Flush with 200ml water four times per day. 31216 mL 07/15/2023 Active Nutritional Supplements (Boost VHC) Liquid (6 sources) Start: Nutritional Supplements (Boost VHC) Liquid 52 mL by Enteral route. 12/01/2023 Active ofloxacin 3 mg/ml ophthalmic solution (4 sources) Quinolone Antimicrobial Start: End: take 2 drop(s) into the eye(s) four times daily ofloxacin (OCUFLOX) 0.3 % ophthalmic solution Indications: Acute conjunctivitis of left eye, unspecified acute conjunctivitis type Administer 2 (two) drops into the left eye 4 (four) times a day for 7 days . 10 mL 09/14/2024 09/21/2024 Active oxygen (O2) gas therapy (6 sources) take 1 dose by inhalation once daily at bedtime oxygen (O2) gas therapy Inhale 1 Dose once daily at bedtime. Active take 1 dose by inhal ation once daily at bedtime oxygen (O2) gas therapy Inhale 1 each once daily at bedtime. Active phenylephrine hydrochloride 25 mg/ml ophthalmic solution (4 sources) alpha-1 Adrenergic Agonist Start: 06-11-2023 End: 06-12-2023 PHENYLephrine 2.5 % 1 Drop (AK-DILATE, AURELIO-SYNEPHRINE) Start: 06-05-2022 End: 06-06-2022 PHENYLephrine 2.5 % 1 Drop ( AK-DILATE, AURELIO-SYNEPHRINE) Start: 11-28-2021 End: 11-29-2021 PHENYLephrine 2.5 % 1 Drop ( AK-DILATE, AURELIO-SYNEPHRINE) proparacaine hydrochloride 5 mg/ml ophthalmic solution (4 sources) Local Anesthetic Start: 06-11-2023 End: 06-12-2023 proparacaine 0.5 % 1 Drop (ALCAINE) Start: 06-05-2022 End: 06-06-2022 proparacaine 0.5 % 1 Drop (A LCAINE) Start: 11-28-2021 End: 11-29-2021 proparacaine 0.5 % 1 Drop (A LCAINE) propylene glycol/PF (SYSTANE PRO PF OPHT) (4 sources) propylene glycol /PF (SYSTANE PRO PF OPHT) Administer 1 drop to both eyes as needed . Active propylene glycol /PF (SYSTANE PRO PF OPHT) Administer 1 drop to both eyes as needed . SPACER FOR INHALER PRESCRIPTION (14 sources) Start: 06-04-2023 SPACER FOR INH ALER PRESCRIPTION Indications: Chronic obstructive pulmonary disease, unspecified COPD type Use with inhaler as directed 1 Each 06/04/2023 Active tropicamide 10 mg/ml ophthalmic solution (4 sources) Anticholinergic Start: 06-11-2023 End: 06-12-2023 tropicamide 1 % 1 Drop (MYDRIACYL) Start: 06-05-2022 End: 06-06-2022 tropicamide 1 % 1 Drop (MYDR IACYL) Start: 11-28-2021 End: 11-29-2021 tropicamide 1 % 1 Drop (MYDR IACYL) zinc sulfate 220 mg oral tablet (1 source) Start: 04-07-2021 End: 04-27-2021 take 1 tablet by mouth once daily at mealtime zinc sulfate 220 mg oral tablet ; 1 tab(s) orally once a day Quantity: 21 Refills: 0 Ordered: 07-Apr-2021 Glenys Calloway Start: 07-Apr-2021 End: 27-Apr-2021 Generic Substitution Allowed Comments: Take with food or milk. Comment on above: Take with food or milk. Completed/Discontinued Medications Medication Drug Class(es) Dates Sig (Normalized) Sig (Original) acetaminophen 325 mg oral tablet (20 sources) Start: 12-16-2024 End: 12-18-2024 take 1 tablet by mouth every four hours as needed for pain and headache 650 mg, Tube, Every 4 hours PRN, mild pain, fever 100.4 F or greater, headaches, Starting on Fri12/17/24 at 0853 Start: 11-18-2024 End: 11-22-2024 650 mg, Tube, Every 4 hours PRN, mild pain, headaches, Starting on Fri11/18/24 at 0542, Do not exceed max of 4000 mg acetaminophen in 24 hours. Start: 11-17-2024 End: 11-17-2024 1,000 mg, Tube, Once, On Fri11/17/24 at 1900, For 1 dose Start: 07-30-2024 End: 07-31-2024 take 1 tablet by mouth every four hours as needed 650 mg, Oral, EVERY 4 HOURS NEEDED, Starting on Fri07/30/24 at 1352, Until 07/31/24 at 1740, Mild Pain, Oral temp > 100.4 F Start: 07-30-2024 End: 07-31-2024 take 325 mg rectal route every four hours as needed 325 mg, Rectal, EVERY 4 HOURS NEEDED, Starting on Fri07/30/24 at 1219, Until 07/31/24 at 1740, Oral temp > 101.5 F Start: 07-04-2024 End: 07-06-2024 take 325-650 mg by mouth every four hours as needed 325-650 mg, Oral, EVERY 4 HOURS NEEDED, Starting on Fri07/04/24 at 1409, Until Fri07/06/24 at 2004, Mild Pain, Maximum dose of acetaminophen is 4000 mg from all sources in 24 hours. Start: 06-08-2024 End: 06-09-2024 650 mg, Tube, Every 6 hours PRN, headaches, Starting on Fri06/08/24 at 1615 Start: 12-22-2023 End: 12-25-2023 take 1 tablet by mouth every four hours as needed for pain and headache Start: 06-15-2023 End: 06-17-2023 take 650 mg intragastric route every six hours as needed 650 mg, Per G Tube, EVERY 6 HOURS NEEDED, Starting on 06/15/23 at 0711, Until Tu06/17/23 at 1601, Oral temp > 100.4 F Start: 05-25-2023 End: 05-26-2023 take 325-650 mg by mouth every four hours as needed Start: 05-09-2023 End: 05-11-2023 take 325-650 mg by mouth every four hours as needed 325-650 mg, Oral, EVERY 4 HOURS NEEDED, Starting on 05/09/23 at 1305, Until 05/11/23 at 1939, Mild Pain, Maximum dose of acetaminophen is 4000 mg from all sources in 24 hours. Start: 04-19-2023 End: 04-20-2023 take 1 tablet by mouth every four hours as needed 650 mg, Oral, EVERY 4 HOURS NEEDED, Starting on 04/19/23 at 0631, Until Fri04/20/23 at 1537, Mild Pain, Headaches, Oral temp > 100.4 F Start: 04-07-2023 End: 04-08-2023 take 650 mg intragastric route every four hours as needed 650 mg, PEG Tube, EVERY 4 HOURS NEEDED, Starting on Fri04/07/23 at 1117, Until Fri04/08/23 at 1911, Mild Pain, Oral temp > 100.4 F Start: 03-03-2023 End: 03-04-2023 take 1 tablet by mouth every four hours as needed 650 mg, Oral, EVERY 4 HOURS NEEDED, Starting on Fri03/03/23 at 1131, Until Fri03/04/23 at 1718, Mild Pain, Oral temp > 100.4 F Start: 04-06-2021 take 2 tablets by mo [facility] every four hours as needed acetaminophen 325 mg oral tablet ; 2 tab(s) orally every 4 hours, As needed, Pain - Mild (1-3) Quantity: 0 Refills: 0 Ordered: 06-Apr-2021 Carmel Cotter Start: 06-Apr-2021 Generic Substitution Allowed End: 03-22-2024 take 2 tablets by mouth every six hours as needed acetaminophen (Tylenol) 325 mg tablet Take 2 tablets (650 mg) by mouth every 6 hours if needed for mild pain (1 - 3). 03/22/2024 Discontinued (Med List Cleanup) acetaminophen 325 mg / butalbital 50 mg / caffeine 40 mg oral tablet (1 source) Barbiturate, Central Nervous System Stimulant, Methylxanthine Start: 06-09-2024 End: 06-09-2024 take 2 tablets by mouth every four hours as needed for headache 2 tablet, Oral, Every 4 hours PRN, headaches, Starting on Fri06/09/24 at 0850, Max of 6 tablets per day acetaminophen 325 mg / HYDROcodone bitartrate 5 mg oral tablet (1 source) Opioid Agonist Start: 06-15-2023 End: 06-17-2023 take 1 tablet by mouth every four hours as needed 1 tablet, Oral, EVERY 4 HOURS NEEDED, Starting on Fri06/15/23 at 1005, Until Tu06/17/23 at 1601, Severe Pain, Maximum dose of acetaminophen is 4000 mg from all sources in 24 hours. [id number] 200 actuat albuterol 0.09 mg/actuat metered dose inhaler (20 sources) beta2-Adrenergic Agonist Start: 12-25-2023 End: 09-18-2024 take 2 puff(s) by inhalation every six hours as needed for wheezing albuterol 90 mcg/actuation inhaler Inhale 2 (two) puffs every 6 (six) hours as needed for shortness of breath or wheezing . 6.7 g 12/25/2023 09/18/2024 Discontinued Start: 12-22-2023 End: 12-25-2023 take 2 puff(s) by inhalation every six hours as needed for wheezing 2 puff, Inhalation, Every 6 hours PRN (RT), shortness of breath, wheezing, Starting on 12/22/23 at 1955, SPACER REQUIRED FOR ADMINISTRATION Start: 08-22-2023 2 puff, Inhala tion, ONCE (OUTPT CLINIC), 1 dose, Starting on Fri08/22/23 at 1255, Until Fri08/22/23 at 1346, Wait at least one(1) full minute between inhalations Start: 06-04-2023 End: 06-03-2024 take 2 puff(s) by inhalation every four hours as needed for wheezing Albuterol 108 (90 Base) MCG/ACT Aero Soln inhaler Indications: Chronic obstructive pulmonary disease, unspecified COPD type Inhale 2 puffs every 4 hours as needed for Shortness of Breath, Respiratory Distress or Wheezing. 18 g 3 06/04/2023 06/03/2024 Active Start: 05-27-2023 take 2.5 mg by inhal ation every six hours as needed Albuterol (2.5 MG/3ML) 0.083% inhalation solution Take 3 mL by nebulization every 6 hours as needed for Shortness of Breath. 360 mL 5 05/27/2023 Active Start: 04-19-2023 End: 04-20-2023 take 2.5 mg by inhalation every four hours as needed 2.5 mg, Nebulization, EVERY 4 HOURS NEEDED, Starting on 04/19/23 at 0633, Until 04/20/23 at 1537, Shortness of Breath, Wheezing, Respiratory Distress Start: 06-20-2021 End: 09-25-2023 take 2 puff(s) by inhalation every four hours as needed albuterol 90 mcg/actuation inhaler Inhale 2 (two) puffs every 4 (four) hours as needed . 6.7 g 06/20/2021 09/25/2023 Discontinued (Patient's Request) albuterol 0.833 mg/ml / ipratropium bromide 0.167 mg/ml inhalation solution (20 sources) Anticholinergic, beta2-Adrenergic Agonist Start: 07-04-2024 End: 07-06-2024 take 3 mL by inhalation every six hours 3 mL, Nebulization, EVERY 6 HOURS NON-STANDARD, First dose on Fri07/04/24 at 1900, Until Discontinued Start: 07-04-2024 End: 07-06-2024 take 3 mL by inhalation every four hours as needed Start: 07-04-2024 3 mL, Nebuliza tion, EVERY 15 MINUTES, 3 doses, First dose on Fri07/04/24 at 1100, Last dose on Fri07/04/24 at 1130 Start: 06-08-2024 End: 06-09-2024 take 3 mL by inhalation every six hours 3 mL, Inhalation, Every 6 hours scheduled (RT), First dose on Fri06/08/24 at 0200 Start: 02-06-2024 End: 02-05-2025 take 3 mL by inhalation every four hours as needed for chronic obstructive pulmonary disease and chronic obstructive pulmonary disease Ipratropium-albuterol 0.5-2.5 (3) MG/3ML nebulizer solution Indications: Chronic obstructive pulmonary disease, unspecified COPD type Take 3 mL by nebulization every 4 hours as needed for Shortness of Breath, Wheezing, Cough or Breathing Treatment. 360 mL 11 02/06/2024 07/31/2024 Discontinued (Stop Taking at Discharge) Start: 12-22-2023 End: 12-25-2023 take 3 mL by inhalation every six hours as needed 3 mL, Inhalation, Every 6 hours PRN (RT), shortness of breath, Starting on 12/22/23 at 1955 Start: 06-15-2023 End: 06-16-2023 take 3 mL by inhalation every six hours 3 mL, Nebulization, EVERY 6 HOURS NON-STANDARD, First dose on Fri06/15/23 at 1300, Until Discontinued Start: 06-14-2023 End: 06-17-2023 take 3 mL by inhalation every four hours as needed 3 mL, Nebulization, EVERY 4 HOURS NEEDED, Starting on 06/15/23 at 1005, Until 06/17/23 at 1601, Shortness of Breath Start: 06-14-2023 End: 06-14-2023 3 mL, Nebulization, ONCE, 1 dose, On 06/14/23 at 1845 Start: 05-25-2023 End: 05-26-2023 take 3 mL by inhalation every four hours as needed Start: 05-24-2023 End: 05-24-2023 3 mL, Nebulization, ONCE, 1 dose, On 05/24/23 at 2015 Start: 05-09-2023 End: 05-11-2023 take 3 mL by inhalation every six hours 3 mL, Nebulization, EVERY 6 HOURS NON-STANDARD, First dose on Fri05/09/23 at 1345, Until Discontinued Start: 05-09-2023 End: 05-11-2023 take 3 mL by inhalation every four hours as needed 3 mL, Nebulization, EVERY 4 HOURS NEEDED, Starting on Fri05/09/23 at 1305, Until 3/24/24 at 1939, Shortness of Breath Start: 04-19-2023 End: 04-20-2023 take 3 mL by inhalation every six hours 3 mL, Nebulization, EVERY 6 HOURS NON-STANDARD, First dose on Fri04/19/23 at 0715, Until Discontinued Start: 04-07-2023 End: 04-08-2023 take 3 mL by inhalation every four hours as needed 3 mL, Nebulization, EVERY 4 HOURS NEEDED, Starting on Fri04/07/23 at 1147, Until Fri04/08/23 at 1911, Shortness of Breath Start: 03-03-2023 End: 03-04-2023 take 3 mL by inhalation every four hours as needed Ipratropium-albuterol (DUONEB) 0.5-2.5 (3) MG/3ML nebulizer solution 3 mL aluminum hydroxide 40 mg/ml / magnesium hydroxide 40 mg/ml / simethicone 4 mg/ml oral suspension (1 source) Start: 12-17-2024 End: 12-18-2024 30 mL, Tube, Every 4 hours PRN, indigestion, Starting on Fri12/17/24 at 0853 amLODIPine 5 mg / hydroCHLOROthiazide 25 mg / olmesartan medoxomil 40 mg oral tablet (20 sources) Thiazide Diuretic, Dihydropyridine Calcium Channel Elliot, Angiotensin 2 Receptor Elliot Start: 02-04-2014 End: 09-25-2023 take 1 tablet by mouth once daily olmesartan-amLOD IPine-hctz (Tribenzor) 40-5-25 mg Tab Take 1 tablet by mouth daily . 02/04/2014 09/25/2023 Discontinued (Patient's Request) End: 05-25-2023 [id number] ( Tribenzor) 20-5-12.5 MG tablet Take by mouth. 05/25/2023 Discontinued (Medication Reconciliation (suppress cancel msg)) Comment on above: Take 1 tablet by emelyn th once daily. ampicillin-sulbac tabor (UNASYN) 3000 mg in sodium chloride (NS) 0.9% 100 mL (vialmate) (1 source) Start: End: take 3000 mg intravenously every six hours 3,000 mg, Intravenous, at 100 mL/hr, Every 6 hours, First dose on Fri06/08/24 at 0000, Indication: Aspiration Pneumonia apixaban 5 mg oral tablet (20 sources) Factor Xa Inhibitor Start: End: 5 5 mg, Tube, 2 times daily, First dose (after last modification) on Betty 12/16/24 at 0800, Indication: DVT/PE, How long has patient been on apixaban? 7 Days - 6 Months Start: 11-18-2024 End: 11-22-2024 5 mg, Tube, 2 times daily, F irst dose on Betty 11/18/24 at 1300, Indication: DVT/PE, How long has patient been on apixaban? 7 Days - 6 Months Start: 07-30-2024 End: 07-31-2024 5 mg, PEG Tube, EVERY 12 MICAH RS, First dose (after last modification) on Fri07/30/24 at 1230, Until Discontinued, Due to the rapid onset of action of apixaban, no overlap is needed with other anticoagulants (e.g. enoxaparin, heparin)., Indications: Atrial Fibrillation Start: 06-07-2024 End: 06-09-2024 5 mg, Tube, 2 times daily, F irst dose on Fri06/07/24 at 2300, Indication: DVT/PE, How long has patient been on apixaban? Greater than 6 Months Start: 02-24-2024 End: 09-19-2024 apixaban (Eliquis) 5 mg Tab 1 (one) tablet (5 mg total) by Per G Tube route 2 (two) times a day . 180 tablet 3 02/24/2024 Active Start: 01-01-2024 End: 02-24-2024 take 1 tablet by mouth twice daily apixaban (ELIQUIS) 5 mg tab(s) Take 5 mg by mouth two times a day. 01/01/2024 Active Start: 01-01-2024 take 1 tablet by emelyn th twice daily apixaban (Eliquis) 5 mg Tab Take 1 (one) tablet (5 mg total) by mouth 2 (two) times a day Start: 01/01/24. 60 tablet 1 01/01/2024 Active Start: 01-01-2024 take 1 tablet by emelyn th twice daily apixaban (Eliquis) 5 mg Tab Take 1 (one) tablet (5 mg total) by mouth 2 (two) times a day Start: 01/01/24. 60 tablet 1 01/01/2024 Start: 12-31-2023 apixaban (Eliq uis) 5 mg tablet 1 tablet (5 mg) twice a day. 12/31/2023 Active Start: 12-31-2023 End: 07-06-2024 take 1 tablet by mouth every twelve hours apixaban 5 MG tablet Indications: Single subsegmental pulmonary embolism without acute cor pulmonale Take 1 tablet by mouth every 12 hours. 60 tablet 12/31/2023 Active Start: 12-25-2023 End: 01-13-2024 take 2 tablets by mouth twice daily apixaban (Eliquis) 5 mg Tab Take 2 (two) tablets (10 mg total) by mouth 2 (two) times a day for 6 days . 24 tablet 12/25/2023 01/13/2024 Discontinued Start: 12-24-2023 End: 12-25-2023 apixaban (ELIQUIS) tablet 10 mg ascorbic acid 500 mg chewable tablet (4 sources) Vitamin C Start: 04-07-2021 End: 11-08-2021 ascorbic acid 500 MG tablet Start: 04-07-2021 End: 04-27-2021 ascorbic acid 500 MG tablet aspirin 81 mg chewable tablet (20 sources) Platelet Aggregation Inhibitor, Nonsteroidal Anti-inflammatory Drug Start: 11-19-2024 End: 11-22-2024 81 mg, Tube, Daily, First dose on Fri11/19/24 at 0900 Start: 11-18-2024 End: 11-18-2024 take 81 mg by mouth once daily 81 mg, Oral, Daily, Fir st dose on Betty 11/18/24 at 0900, DO NOT CRUSH OR CHEW. Start: 07-31-2024 End: 08-31-2024 aspirin 81 MG Chew Tab chewa ble tablet Chew 1 tablet daily. 30 tablet 08/01/2024 08/31/2024 Active End: 12-18-2024 aspirin 81 MG EC tablet 1 (o ne) tablet (81 mg total) by Other route every morning Per G tube . 12/18/2024 Discontinued (Stop Taking at Discharge) End: 07-18-2021 aspirin 81 MG Tab daily. 0 0 07/18/2021 Discontinued Comment on above: Take 81 mg by mouth once daily. Aspirin-Acetaminophen -Caffeine (EXCEDRIN PO) (4 sources) End: 05-25-2023 Apveuhh-Eudyapmgqpsvc-Nwkjzb ne (EXCEDRIN PO) Take by mouth. 05/25/2023 Discontinued (Medication Reconciliation (suppress cancel msg)) Aspirin-Acetamin ophen-Caffeine (EXCEDRIN PO) Take by mouth. Active atorvastatin 20 mg oral tablet (3 sources) HMG-CoA Reductase Inhibitor Start: 06-15-2023 End: 06-17-2023 20 mg, PEG Tube, DAILY AT BEDTIME, First dose on Fri06/15/23 at 2100, Until Discontinued Start: 04-07-2023 End: 04-08-2023 take 10 mg by mouth once daily at bedtime 10 mg, Oral, DAILY AT BEDTIME, First dose on Fri04/07/23 at 2100, Until Discontinued Start: 03-03-2023 End: 03-04-2023 take 10 mg by mouth once daily at bedtime 10 mg, Oral, DAILY AT BEDTIME, First dose on Fri03/03/23 at 2100, Until Discontinued azithromycin 250 mg oral tablet (1 source) Macrolide Antimicrobial Start: 11-19-2024 End: 11-22-2024 250 mg, Tube, 3 times weekly (Once per day on Friday), First dose (after last modification) on Fri11/19/24 at 0900, Indication: COPD Exacerbation azithromycin (ZITHROMAX) 500 mg in sodium chloride (NS) 0.9% 250 mL (vialmate) (1 source) Start: 11-17-2024 End: 11-17-2024 500 mg, Intravenous, at 250 mL/hr, Once, On Fri11/17/24 at 1900, For 1 dose, Indication: Other (specify), Indication: Community Acquired Pneumonia (CAP) with SEPSIS Azithromycin (ZITHROMAX) 500 mg in Sodium chloride 0.9% 250 mL (total volume) IVPB (2 sources) Start: 03-04-2023 End: 03-04-2023 take 500 mg intravenously every twenty-four hours 500 mg, Intravenous, Administer over 60 Minutes, EVERY 24 HOURS, First dose on Fri03/04/23 at 1200, Until Discontinued Start: 03-03-2023 End: 03-03-2023 Azithromycin (ZITHROMAX) 500 mg in Sodium chloride 0.9% 250 mL (total volume) IVPB Barium Sulfate (VARIBAR PUDDING) 40 % pudding PSTE 46 mL (1 source) Start: 03-04-2023 End: 03-04-2023 Barium Sulfate (VARIBAR PUDDING) 40 % pudding PSTE 46 mL Barium Sulfate (VARIBAR THIN LIQUID) 40 % 1-150 mL (1 source) Start: 03-04-2023 End: 03-04-2023 Barium Sulfate (VARIBAR THIN LIQUID) 40 % 1-150 mL Barium Sulfate (VARIBAR) 40 % suspension SUSP 48 mL (2 sources) Start: 03-04-2023 End: 03-04-2023 Barium Sulfate (VARIBAR) 40 % suspension SUSP 48 mL benoxinate hydrochloride 4 mg/ml / fluorescein sodium 2.5 mg/ml ophthalmic solution (1 source) Diagnostic Dye Start: 06-05-2022 End: 06-06-2022 fluorescein-benoxi michel 0.25-0.4 % 1 Drop (FLURESS) bifidobacterium animalis [id number] unt / lactobacillus acidophilus [id number] unt oral capsule (4 sources) Start: 07-04-2024 End: 07-06-2024 take 1 capsule by mouth twice daily 1 capsule, Oral, 2 TIMES DAILY, First dose on Fri07/04/24 at 1700, Until Discontinued Start: 06-15-2023 End: 06-20-2023 take 1 capsule by mouth twice daily probiotic blend capsule Take 1 capsule by mouth 2 times daily for 3 days. 6 capsule 06/17/2023 06/20/2023 bisacodyl 10 mg rectal suppository (2 sources) Stimulant Laxative Start: 07-30-2024 End: 07-31-2024 take 10 mg rectal route once daily as needed for constipation 10 mg, Rectal, DAILY NEEDED, Starting on Fri07/30/24 at 1220, Until 07/31/24 at 1740, Constipation 1st Line Start: 03-03-2023 End: 03-04-2023 take 10 mg rectal route once daily as needed for constipation 10 mg, Rectal, DAILY NEEDED, Starting on Fri03/03/23 at 1419, Until Fri03/04/23 at 1718, Constipation 1st Line budesonide 0.25 mg/ml inhalation suspension (20 sources) Corticosteroid Start: 06-08-2024 End: 06-09-2024 0.5 mg, Nebulization, Daily (RT), First dose on Fri06/08/24 at 0900 Start: 12-31-2023 End: 09-16-2024 budesonide (PULMICORT) 0.5 m g/2 mL nebulizer solution Inhale 0.5 mg as instructed. 12/31/2023 09/16/2024 Discontinued (Allergic response) Start: 12-31-2023 End: 02-05-2025 take 2 mL by mouth twice daily budesonide 0.5 MG/2ML n ebulizer suspension Indications: Chronic obstructive pulmonary disease, unspecified COPD type Inhale 2 mL 2 times daily. GARGLE, RINSE MOUTH AFTER USE 360 mL 3 02/06/2024 07/31/2024 Discontinued (Stop Taking at Discharge) End: 09-18-2024 budesonide (PULMICORT) 0.5 m g/2 mL nebulizer solution Take 2 mL (0.5 mg total) by nebulization daily . 09/18/2024 Discontinued calcium chloride 0.0014 meq/ ml / potassium chloride 0.004 meq/ml / sodium chloride 0.103 meq/ml / sodium lactate 0.028 meq/ml injectable solution (11 sources) Start: 12-15-2024 End: 12-15-2024 2,448 mL (30 mL/kg 81.6 kg), Intravenous, at 1,224 mL/hr, Once, On Fri12/15/24 at 202, For 1 dose Start: 11-18-2024 End: 11-18-2024 1,000 mL, Intravenous, at 1, 935.5 mL/hr, Once, On Fri11/18/24 at 1745, For 1 dose Start: 11-17-2024 End: 11-17-2024 1,000 mL, Intravenous, at 98 3.6 mL/hr, Once, On Fri11/17/24 at 2140, For 1 dose Start: 06-08-2024 End: 06-09-2024 take 100 mL intravenously every hour 100 mL/hr, Intravenous, Continuous, Starting on Fri06/08/24 at 1515, For 1 day Start: 05-26-2024 End: 05-27-2024 take 100 mL intravenously every hour 100 mL/hr, intravenous, Continuous, Starting on Fri05/26/24 at 0800, For 1 day, Preprocedure Start: 11-11-2023 End: 11-12-2023 take 20 mL intravenously every hour 20 mL/hr, intravenous, Continuous, Starting on Fri11/11/23 at 0645, Preprocedure Start: 05-09-2023 End: 05-09-2023 1,000 mL, Intravenous, at 99 9 mL/hr, ONCE, 1 dose, On Fri05/09/23 at 1515 Start: 04-19-2023 End: 04-20-2023 Intravenous, at 100 mL/hr, CONTINUOUS, Starting on 04/19/23 at 0645, Until Fri04/20/23 at 0644 cefepime 2000 mg injection (1 source) Cephalosporin Antibacterial Start: 12-16-2024 End: 12-18-2024 take 2000 mg intravenously every eight hours 2,000 mg, Intravenous, at 100 mL/hr, Every 8 hours, First dose on Fri12/16/24 at 0000, Indication: Sepsis ceFEPIme (MAXIPIME) 2 g in sodium chloride 0.9% (MB PLUS) 100 mL (total volume) IVPB (7 sources) Start: 07-04-2024 End: 07-06-2024 take 2 g intravenously every eight hours 2 g, Intravenous, Administer over 4 Hours, EVERY 8 HOURS NON-STANDARD, First dose on Fri07/04/24 at 2100, Until Discontinued, Infuse STAT doses over 30 minutes. Infuse other doses over 4 hours. Start: 07-04-2024 End: 07-04-2024 2 g, Intravenous, Administer over 0.5 Hours, ONCE, 1 dose, On Fri07/04/24 at 1300, Infuse STAT doses over 30 minutes. Infuse other doses over 4 hours. Start: 06-15-2023 End: 06-17-2023 take 2 g intravenously every eight hours 2 g, Intravenous, Administer over 4 Hours, EVERY 8 HOURS NON-STANDARD, First dose on Fri06/15/23 at 0200, Until Discontinued, Infuse STAT doses over 30 minutes. Infuse other doses over 4 hours. Start: 06-14-2023 End: 06-14-2023 2 g, Intravenous, Administer over 0.5 Hours, ONCE, 1 dose, On 06/14/23 at 1800, Infuse STAT doses over 30 minutes. Infuse other doses over 4 hours. Start: 05-25-2023 End: 05-26-2023 take 2 g intravenously every eight hours 2 g, Intravenous, Administer over 4 Hours, EVERY 8 HOURS NON-STANDARD, First dose on 05/25/23 at 0630, Until Discontinued, Infuse STAT doses over 30 minutes. Infuse other doses over 4 hours. Start: 05-24-2023 End: 05-24-2023 2 g, Intravenous, Administer over 0.5 Hours, ONCE, 1 dose, On 05/24/23 at 2230, Infuse STAT doses over 30 minutes. Infuse other doses over 4 hours. Start: 05-09-2023 End: 05-09-2023 2 g, Intravenous, Administer over 0.5 Hours, ONCE, 1 dose, On Fri05/09/23 at 0830, Infuse STAT doses over 30 minutes. Infuse other doses over 4 hours. cefTRIAXone 2000 mg injection (2 sources) Cephalosporin Antibacterial Start: 11-17-2024 End: 11-17-2024 2,000 mg, Intravenous, at 100 mL/hr, Once, On Fri11/17/24 at 1900, For 1 dose, Indication: Other (specify), Indication: Community Acquired Pneumonia (CAP) with SEPSIS Start: 12-22-2023 End: 12-25-2023 take 2000 mg intravenously every twenty-four hours 2,000 mg, Intravenous, at 100 mL/hr, Every 24 hours, First dose on Fri12/22/23 at 2100, Indication: CAP cefTRIAXone (ROCEPHIN) 1 g in sodium chloride 0.9% (MB PLUS) 50 mL (total volume) IVPB (2 sources) Start: 03-04-2023 End: 03-04-2023 take 1 g intravenously every twenty-four hours 1 g, Intravenous, Administer over 30 Minutes, EVERY 24 HOURS, First dose on Fri03/04/23 at 1200, Until Discontinued Start: 03-03-2023 End: 03-03-2023 cefTRIAXone (ROCEPHIN) 1 g i n sodium chloride 0.9% (MB PLUS) 50 mL (total volume) IVPB celecoxib 25 mg/ml oral solution (17 sources) Nonsteroidal Anti-inflammatory Drug Start: 06-15-2024 End: 11-16-2024 celecoxib (ELYXYB) 120 mg/4.8 mL (25 mg/mL) Soln Indications: Primary osteoarthritis involving multiple joints Take 120 mg per G-tube daily . 144 mL 1 06/24/2024 11/16/2024 Discontinued cloNIDine hydrochloride 0.1 mg oral tablet (1 source) Central alpha-2 Adrenergic Agonist Start: 04-19-2023 End: 04-20-2023 take 1 tablet by mouth every four hours as needed 0.1 mg, Oral, EVERY 4 HOURS NEEDED, Starting on 04/19/23 at 0631, Until 04/20/23 at 1537, SBP > 160 mmHg, Other, DBP > 90 1 ml dexamethasone phosphate 10 mg/ml injection (2 sources) Corticosteroid Start: 11-11-2023 End: 11-11-2023 8 mg, intravenous, Once, On 11/11/23 at 0715, For 1 dose, Preprocedure Start: 11-11-2023 End: 11-11-2023 8 mg, intravenous, Once, On 11/11/23 at 0715, For 1 dose, Preprocedure 1 ml diphenhydrAMINE hydrochloride 50 mg/ml cartridge (3 sources) Histamine-1 Receptor Antagonist Start: 07-04-2024 End: 07-06-2024 take 25 mg intravenously every six hours as needed 25 mg, Intravenous, EVERY 6 HOURS NEEDED, Starting on 07/04/24 at 1409, Until 07/06/24 at 2004, Itching, Sleep, Allergic Reaction (Swelling throat, tongue or lips, rash, difficulty breathing), Infusion Reaction Start: 06-15-2023 End: 06-17-2023 take 25 mg intravenously every six hours as needed 25 mg, Intravenous, EVERY 6 HOURS NEEDED, Starting on 06/15/23 at 1005, Until 06/17/23 at 1601, Itching, Sleep, Allergic Reaction (Swelling throat, tongue or lips, rash, difficulty breathing), Infusion Reaction Start: 05-09-2023 End: 05-11-2023 take 25 mg intravenously every six hours as needed 25 mg, Intravenous, EVERY 6 HOURS NEEDED, Starting on Fri05/09/23 at 1305, Until Fri05/11/23 at 1939, Itching, Sleep, Allergic Reaction (Swelling throat, tongue or lips, rash, difficulty breathing), Infusion Reaction docusate sodium 50 mg / sennosides, group home 8.6 mg oral tablet (3 sources) Start: 11-21-2024 End: 11-22-2024 take 1 tablet by mouth once daily as needed for constipation 1 tablet, Tube, Daily PRN, constipation, Starting on Fri11/21/24 at 0900, Do not crush or chew. Hold for loose stool. Do Not Crush or Chew if administering orally due to bitter taste. May be crushed if given via tube. Start: 11-18-2024 End: 11-21-2024 take 1 tablet by mouth twice daily 1 tablet, Tube, 2 times daily, First dose (after last modification) on Betty 11/18/24 at 2100, Do not crush or chew. Hold for loose stool. Do Not Crush or Chew if administering orally due to bitter taste. May be crushed if given via tube. doxazosin 4 mg oral tablet (20 sources) alpha-Adrenergic Elliot Start: 12-16-2024 End: 12-18-2024 Start: 09-07-2024 doxazosin (CAR DURA) 4 MG tablet 1 (one) tablet (4 mg total) by Per G Tube route nightly . 09/07/2024 Active Start: 07-30-2024 End: 07-31-2024 4 mg, PEG Tube, DAILY AT BED TIME, First dose (after last modification) on Fri07/30/24 at 2100, Until Discontinued Start: 07-04-2024 End: 07-06-2024 take 4 mg by mouth once daily at bedtime 4 mg, Oral, DAILY AT BEDTIME, First dose on Fri07/04/24 at 2100, Until Discontinued Start: 06-22-2024 take 1 tablet by emelyn th once daily doxazosin (CARDURA) 4 MG tablet Take 1 (one) tablet (4 mg total) by mouth nightly . 09/07/2024 Active doxycycline hyclate 100 mg oral tablet (5 sources) Tetracycline-class Drug Start: 05-22-2024 End: 05-22-2024 take 100 mg by mouth once at mealtime 100 mg, oral, Once, On 05/22/24 at 1630, For 1 dose, Administer with meals to decrease GI upset; take with at least 8 ounces (large glass) of water, do not lie down for 30 minutes after., Suspected Indication (Select all that apply): Cellulitis, Skin and Soft Tissue, Type of Therapy: Definitive, No Cultures, Coverage (Select all that apply): MRSA: Staph, Methicillin-Resistant, MSSA: Staph, Methicillin-Susceptible, Indications: Cellulitis, Skin and Soft Tissue Start: 05-22-2024 End: 06-01-2024 doxycycline (Vibramycin) 100 mg capsule Indications: Disorder of stoma Take 1 capsule (100 mg) by mouth 2 times a day for 10 days. Take with at least 8 ounces (large glass) of water, do not lie down for 30 minutes after 20 capsule 05/22/2024 06/01/2024 Doxycycline hyclate (VIBRAMYCIN) 100 mg in sodium chloride 0.9% (MB PLUS) 100 mL (total volume) IVPB (1 source) Start: 07-31-2024 End: 07-31-2024 100 mg, Intravenous, Administer over 60 Minutes, EVERY 12 HOURS, First dose on 07/31/24 at 0900, Until Discontinued, Extravasation Risk dutasteride 0.5 mg oral capsule (20 sources) 5-alpha Reductase Inhibitor Start: 07-18-2013 End: 09-25-2023 take 1 capsule by mouth once daily dutasteride (Avodart) 0.5 MG capsule Indications: Benign prostatic hyperplasia with lower urinary tract symptoms, symptom details unspecified Take 1 capsule by mouth daily. 14 capsule 02/19/2023 08/07/2023 Discontinued (Other (suppress cancel msg)) Comment on above: Take 0.5 mg by mouth once daily. Take 1 capsule by [facility] once daily. 0.4 ml enoxaparin sodium 100 mg/ml prefilled syringe (5 sources) Low Molecular Weight Heparin Start: 06-15-2023 End: 06-17-2023 inject 40 mg by subcutaneous injection once daily 40 mg, Subcutaneous, DAILY, First dose on Fri06/15/23 at 1030, Until Discontinued, Indications: DVT/PE prophylaxis Start: 05-25-2023 End: 05-26-2023 inject 40 mg by subcutaneous injection once daily 40 mg, Subcutaneous, DAILY, First dose on Fri05/25/23 at 2100, Until Discontinued, Indications: DVT/PE prophylaxis Start: 05-09-2023 End: 05-11-2023 inject 40 mg by subcutaneous injection once daily 40 mg, Subcutaneous, DAILY, First dose on Fri05/09/23 at 2100, Until Discontinued, Indications: DVT/PE prophylaxis Start: 04-19-2023 End: 04-20-2023 inject 40 mg by subcutaneous injection every twenty-four hours 40 mg, Subcutaneous, EVERY 24 HOURS, First dose on Fri04/19/23 at 0715, Until Discontinued, Indications: DVT/PE prophylaxis Start: 03-03-2023 End: 03-04-2023 inject 40 mg by subcutaneous injection once daily at bedtime 40 mg, Subcutaneous, DAILY AT BEDTIME, First dose on Fri03/03/23 at 2100, Until Discontinued, Indications: DVT/PE prophylaxis esomeprazole 40 mg delayed release oral capsule (20 sources) Proton Pump Inhibitor Start: 08-03-2013 End: 09-25-2023 take 1 capsule by mouth once daily NEXIUM 40 mg capsule Take 40 mg by mouth once daily. 0 08/03/2013 Active Comment on above: Take 40 mg by mouth once daily. famotidine 20 mg oral tablet (20 sources) Histamine-2 Receptor Antagonist Start: 12-16-2024 End: 12-18-2024 20 mg, Tube, 2 times daily, First dose on Fri12/16/24 at 0900 Start: 11-18-2024 End: 11-22-2024 20 mg, Tube, 2 times daily, First dose (after last modification) on Fri11/18/24 at 0900 Start: 11-18-2024 End: 11-18-2024 take 20 mg by mouth twice daily 20 mg, Oral, 2 times daily, First dose on Fri11/18/24 at 0015 Start: 06-07-2024 End: 06-09-2024 20 mg, Tube, 2 times daily, First dose on Fri06/07/24 at 2300 Start: 12-22-2023 End: 12-25-2023 take 20 mg by mouth twice daily 20 mg, Oral, 2 times daily, First dose on Fri12/22/23 at 2100 Start: 08-03-2013 End: 06-04-2023 take 1 tablet by mouth once daily FAMOTIDINE 40 mg tablet Take 40 mg by mouth once daily. 0 08/03/2013 06/04/2023 Discontinued famotidine (PEPC ID) 20 MG tablet 1 (one) tablet (20 mg total) by Per G Tube route 2 (two) times a day . Active take 1 tablet by emelyn th once daily, then take 1 tablet by mouth twice daily famotidine (Pepcid) 20 mg tablet Take 1 tablet (20 mg) by mouth once daily. Take 1 (one) tablet (20mg total) by mouth 2 (two) times a day. -oral Active Comment on above: Take 40 mg by mouth once daily. fexofenadine hydrochloride 180 mg oral tablet (15 sources) Histamine-1 Receptor Antagonist End: take 1 tablet by mouth once daily Fexofenadine 180 MG tablet Take 1 tablet by mouth daily. 04/07/2023 Discontinued (Other (suppress cancel msg)) fexofenadine HCl (NAKITA ALLERGY ORAL) Take by mouth. 0 Active Comment on above: Take by mouth. finasteride 5 mg oral tablet (19 sources) 5-alpha Reductase Inhibitor Start: 11-19-2024 End: 11-22-2024 take 5 mg by mouth once daily 5 mg, Oral, Daily, First dose on Fri11/19/24 at 0900, CATEGORY D HAZARDOUS DRUG use safe handling precautions. Use reference link to view PPE guidelines. Minimize crushing/splitting only to situations where clinically necessary., On hold since [facility] 11/18/2024 at 1520 until manually unheld Start: 05-11-2024 End: 07-31-2024 take 1 tablet by mouth once daily finasteride (PROSCAR) 5 mg tablet Take 5 mg by mouth once daily. 05/11/2024 Active Start: 05-09-2023 End: 05-11-2023 take 5 mg by mouth once daily 5 mg, Oral, DAILY, First dose on Fri05/09/23 at 1345, Until Discontinued Start: 04-07-2023 End: 04-08-2023 take 5 mg by mouth once daily 5 mg, Oral, DAILY, First dose on Fri04/07/23 at 1215, Until Discontinued finasteride (PRO SCAR) 5 mg tablet 1 (one) tablet (5 mg total) by Per G Tube route nightly . Active finasteride (PRO SCAR ORAL) Take by mouth. Active formoterol fumarate 0.01 mg/ml inhalation solution (20 sources) beta2-Adrenergic Agonist Start: 12-31-2023 End: 09-16-2024 formoterol fumarate (PERFOROMIST) 20 mcg/2 mL nebu Inhale 20 mcg as instructed. 12/31/2023 09/16/2024 Discontinued (Side Effects) Start: 12-31-2023 End: 02-05-2025 take 2 mL by mouth twice daily formoterol (Perforomist ) 20 MCG/2ML Nebu Soln nebulizer solution Indications: Chronic obstructive pulmonary disease, unspecified COPD type Take 2 mL by nebulization 2 times daily. GARGLE, RINSE MOUTH AFTER USE 360 mL 3 02/06/2024 07/31/2024 Discontinued (Stop Taking at Discharge) End: 09-18-2024 formoterol fumarate (PERFORO MIST) 20 mcg/2 mL nebulizer solution Take 2 mL (20 mcg total) by nebulization . 09/18/2024 Discontinued 4 ml furosemide 10 mg/ml injection (20 sources) Loop Diuretic Start: 12-25-2023 End: 12-25-2023 10 mg, Intravenous, Once, On Betty 12/25/23 at 1030, For 1 dose, Administer IV push at 20 mg per minute (doses higher than 100 mg require IVPB) Start: 12-24-2023 End: 12-24-2023 20 mg, Intravenous, Once, On 12/24/23 at 1230, For 1 dose, Administer IV push at 20 mg per minute (doses higher than 100 mg require IVPB) Start: 06-10-2023 End: 09-16-2024 take 1 tablet by mouth once daily furosemide (LASIX) 20 mg tablet Take 20 mg by mouth once daily. 06/10/2023 09/16/2024 Discontinued (Allergic response) glucose 4000 mg chewable tablet (15 sources) End: 09-18-2024 glucose 4 g chewable tablet Chew and Swallow 4 (four) tablets (16 g total) as needed for low blood sugar . 09/18/2024 Discontinued 250 ml glucose 50 mg/ml / sodium chloride 4.5 mg/ml injection (1 source) Start: 07-04-2024 End: 07-05-2024 Intravenous, at 100 mL/hr, CONTINUOUS, Starting on 07/04/24 at 1445, Until 07/05/24 at 1118 250 ml heparin sodium, porcine 100 unt/ml injection (1 source) Unfractionated Heparin, Anti-coagulant Start: 12-22-2023 End: 12-24-2023 0-70 Units/kg/hr 73.5 kg (0-51.45 mL/hr, rounded to 0-51.5 mL/hr), Intravenous, Continuous, Starting on Fri12/22/23 at 2045, Choose one of the following protocols: PE / DVT, Bolus options: Protocol WITHOUT initial bolus only, For Downtime Calculator, use: Heparin Infusion Standard 1 ml hydrALAZINE hydrochloride 20 mg/ml injection (1 source) Arteriolar Vasodilator Start: 03-03-2023 End: 03-04-2023 take 20 mg intravenously every six hours as needed hydrALAZINE (APRESOLINE) injection 20 mg insulin lispro 100 unt/ml injectable solution (1 source) Insulin Analog Start: 11-18-2024 End: 11-21-2024 0-30 Units, Subcutaneous, Every 4 hours scheduled, First dose on Betty 11/18/24 at 0800, * Dose should be given EITHER: No sooner than 10-15 minutes BEFORE a meal (Specific Prandial Doses or NO Prandial Dose - Corrective Scale ONLY) - OR - Immediately AFTER meal completed (Carb Counting Ratio), Prandial Insulin Dosing Method: NO Prandial Dose - Corrective Scale ONLY, Corrective Insulin Regimen (select desired scale to cover BG result): USUAL Sensitivity Scale, Dose Reduction Threshold (at meals) for POC Blood Glucose less than or equal to: 80, For Downtime Calculator, use: Insulin SC MEALtime PREprandial insulin lispro (HumaLOG) injection (1 source) Start: 07-30-2024 End: 07-31-2024 insulin lispro (HumaLOG) injection iohexol (OMNIPaque) 350 mg iodine/mL solution 67 mL (1 source) Start: 11-15-2023 End: 11-15-2023 67 mL, intravenous, Once in imaging, Starting on 11/15/23 at 1723, For 1 dose iohexol (OMNIPaque) 350 mg iodine/mL solution 68 mL (1 source) Start: 05-22-2024 End: 05-22-2024 68 mL, intravenous, Once in imaging, Starting on 05/22/24 at 1519, For 1 dose iohexol (OMNIPAQUE) 350 MG/ML injection 75 mL (3 sources) Start: 05-24-2023 End: 05-24-2023 75 mL, Intravenous, ONCE, 1 dose, On 05/24/23 at 2145, Extravasation Risk, Radiology Procedure Start: 05-09-2023 End: 05-09-2023 75 mL, Intravenous, ONCE, 1 dose, On Fri05/09/23 at 1145, Extravasation Risk, Radiology Procedure Start: 03-03-2023 End: 03-03-2023 iohexol (OMNIPAQUE) 350 MG/M L injection 75 mL iopamidoL (ISOVUE-370) 370 m g iodine /mL (76 %) injection 75 mL (1 source) Start: 11-17-2024 End: 11-17-2024 75 mL, Intravenous, Once in imaging, contrast, Starting on 11/17/24 at 2118, For 1 dose Jevity 1.2 Wen LIQD (1 source) Start: 04-20-2023 End: 04-20-2023 30-70 mL/hr, PEG Tube, CONTINUOUS, Starting on Fri04/20/23 at 0800, Until Fri04/20/23 at 1537 Jevity 1.5 Wen/Fiber LIQD (3 sources) Start: 06-15-2023 End: 06-17-2023 PEG Tube, CONTINUOUS, Starti ng on Fri06/15/23 at 1015, Until Tu06/17/23 at 1601, 150 ml free water flush every 6 hours. , Dosing: Continuous, Starting Rate (mL/hr): 10, Advance by (mL/hr): 10, Every ____ hours: 6, Goal Rate (mL/hr): 40, Hold tube feed if residual is greater than ____ mL: 350 Start: 05-25-2023 End: 05-26-2023 PEG Tube, CONTINUOUS, Starti ng on Fri05/25/23 at 1500, Until Fri05/26/23 at 1448, Dosing: Continuous, Starting Rate (mL/hr): 30, Advance by (mL/hr): 30, Every ____ hours: 8, Goal Rate (mL/hr): 62, Hold tube feed if residual is greater than ____ mL: 500 Start: 05-10-2023 End: 05-11-2023 PEG Tube, CONTINUOUS, Starti ng on 05/10/23 at 0915, Until Fri05/11/23 at 1939, 180 ml free water flush every 4 hours. , Dosing: Continuous, Starting Rate (mL/hr): 30, Advance by (mL/hr): 10, Every ____ hours: 8, Goal Rate (mL/hr): 64, Hold tube feed if residual is greater than ____ mL: 500 1 ml ketorolac tromethamine 30 mg/ml cartridge (1 source) Nonsteroidal Anti-inflammatory Drug, Cyclooxygenase Inhibitor Start: 07-30-2024 End: 07-30-2024 30 mg, Intravenous, ONCE, 1 dose, On Fri07/30/24 at 1230 labetalol hydrochloride 5 mg/ml injectable solution (6 sources) beta-Adrenergic Elliot Start: 07-30-2024 End: 07-31-2024 take 20 mg intravenously every six hours as needed 20 mg, Intravenous, EVERY 6 HOURS NEEDED, Starting on Fri07/30/24 at 1220, Until Fri07/31/24 at 1740, [id number] Start: 07-04-2024 End: 07-06-2024 take 20 mg intravenously every four hours as needed 20 mg, Intravenous, EVERY 4 HOURS NEEDED, Starting on Fri07/04/24 at 1409, Until Fri07/06/24 at 2004, systolic blood pressure greater than 160, Administration duration: up to 20 mg over 2 minutes. Start: 06-15-2023 End: 06-17-2023 take 20 mg intravenously every four hours as needed 20 mg, Intravenous, EVERY 4 HOURS NEEDED, Starting on Fri06/15/23 at 1005, Until Fri06/17/23 at 1601, systolic blood pressure greater than 160, Administration duration: up to 20 mg over 2 minutes. Start: 05-25-2023 End: 05-26-2023 take 20 mg intravenously every four hours as needed Start: 05-09-2023 End: 05-11-2023 take 20 mg intravenously every four hours as needed 20 mg, Intravenous, EVERY 4 HOURS NEEDED, Starting on Fri05/09/23 at 1305, Until Fri05/11/23 at 1939, systolic blood pressure greater than 160, Administration duration: up to 20 mg over 2 minutes. Start: 04-07-2023 End: 04-08-2023 take 20 mg intravenously every six hours as needed 20 mg, Intravenous, EVERY 6 HOURS NEEDED, Starting on Fri04/07/23 at 1117, Until Fri04/08/23 at 1911, SBP > 160 mmHg with HR >60 bpm lactobacillus acidophilus [id number] unt / pectin 100 mg oral tablet (3 sources) Start: 04-07-2021 End: 11-08-2021 Lactobacillus Acid-Pectin (acidophilus/citrus pectin) tablet Lactose-Free Food with Fiber (JEVITY 1.5 WEN) 0.06 gram-1.5 kcal/mL liqd (16 sources) Start: 05-29-2023 End: 10-27-2023 Lactose-Free Food with Fiber (JEVITY 1.5 WEN) 0.06 gram-1.5 kcal/mL liqd Indications: Severe protein-calorie malnutrition (HCC) 1 carton eight times per day. Flush with 160ml water for each bolus feeding. 48062 mL 05/29/2023 10/27/2023 Discontinued Start: 05-29-2023 Lactose-Free F ood with Fiber (JEVITY 1.5 WEN) 0.06 gram-1.5 kcal/mL liqd Indications: Severe protein-calorie malnutrition (HCC) 1 carton eight times per day. Flush with 160ml water for each bolus feeding. 65386 mL 05/29/2023 Active Comment on above: 1 carton eight times per day. Flush with 160ml water for each bolus feeding. lactulose 667 mg/ml oral solution (2 sources) Osmotic Laxative Start: 07-04-2024 End: 07-06-2024 take 20 g by mouth every four hours as needed 20 g, Oral, EVERY 4 HOURS NEEDED, Starting on Fri07/04/24 at 1409, Until Fri07/06/24 at 2004, Constipation 1st Line Start: 06-15-2023 End: 06-17-2023 take 20 g by mouth every four hours as needed 20 g, Oral, EVERY 4 HOURS NEEDED, Starting on Fri06/15/23 at 1005, Until Fri06/17/23 at 1601, Constipation 1st Line loperamide hydrochloride 0.133 mg/ml oral suspension (1 source) Opioid Agonist Start: 11-21-2024 End: 11-22-2024 2 mg, Tube, 4 times daily PRN, diarrhea, Starting on Fri11/21/24 at 1350, Do not exceed 16 MG (8 caps)/ 24 HRS loratadine 10 mg oral tablet (1 source) Start: 03-03-2023 End: 03-04-2023 take 10 mg by mouth once daily 10 mg, Oral, DAILY, First dose on Fri03/03/23 at 1500, Until Discontinued losartan potassium 50 mg oral tablet (3 sources) Angiotensin 2 Receptor Elliot Start: 06-15-2023 End: 06-17-2023 100 mg, PEG Tube, DAILY, First dose on Fri06/15/23 at 1045, Until Discontinued Start: 04-07-2023 End: 04-08-2023 take 100 mg by mouth once daily 100 mg, Oral, DAILY, First dose on Fri04/07/23 at 1215, Until Discontinued Start: 03-03-2023 End: 03-04-2023 take 100 mg by mouth once daily 100 mg, Oral, DAILY, First dose on Fri03/03/23 at 1500, Until Discontinued 50 ml magnesium sulfate 40 mg/ml injection (10 sources) Start: 11-21-2024 End: 11-21-2024 take 1.4-1.9 mg intravenously once 2 g, Intravenous, at 50 mL/hr, Once, On Fri11/21/24 at 0615, For 1 dose, 2gm IVPB over 60 minutes x 1 for serum Magnesium in range of 1.4-1.9 mg/dL per Critical/ Intermediate Care Electrolyte Replacement Therapy. Start: 11-19-2024 End: 11-19-2024 take 1.4-1.9 mg intravenously once 2 g, Intravenous, a t 50 mL/hr, Once, On Fri11/19/24 at 0500, For 1 dose, 2gm IVPB over 60 minutes x 1 for serum Magnesium in range of 1.4-1.9 mg/dL per Critical/ Intermediate Care Electrolyte Replacement Therapy. Start: 07-31-2024 End: 07-31-2024 2 g, Intravenous, Administer over 4 Hours, DAILY, First dose on 07/31/24 at 0600, Until Discontinued, Give if magnesium is less than 2 on morning labs. Infuse at a rate of 0.5 gm/hour. Start: 07-05-2024 End: 07-06-2024 2 g, Intravenous, Administer over 4 Hours, DAILY, First dose on Fri07/05/24 at 0600, Until Discontinued, Give if magnesium is less than 2 on morning labs. Infuse at a rate of 0.5 gm/hour. Start: 06-16-2023 End: 06-17-2023 2 g, Intravenous, Administer over 4 Hours, DAILY, First dose on Fri06/16/23 at 0600, Until Discontinued, Give if magnesium is less than 2 on morning labs. Infuse at a rate of 0.5 gm/hour. Start: 05-25-2023 End: 05-26-2023 2 g, Intravenous, Administer over 4 Hours, DAILY, First dose on Fri05/25/23 at 0915, Until Discontinued, Give if magnesium is less than 2 on morning labs. Infuse at a rate of 0.5 gm/hour. Start: 05-10-2023 End: 05-11-2023 2 g, Intravenous, Administer over 4 Hours, DAILY, First dose on 05/10/23 at 0600, Until Discontinued, Give if magnesium is less than 2 on morning labs. Infuse at a rate of 0.5 gm/hour. Start: 04-20-2023 End: 04-20-2023 2 g, Intravenous, Administer over 4 Hours, DAILY, First dose on Fri04/20/23 at 0600, Until Discontinued, Give if magnesium is less than 2 on morning labs. Infuse at a rate of 0.5 gm/hour. Start: 04-08-2023 End: 04-08-2023 2 g, Intravenous, Administer over 4 Hours, DAILY, First dose on Fri04/08/23 at 0600, Until Discontinued, Give if magnesium is less than 2 on morning labs. Infuse at a rate of 0.5 gm/hour. Start: 03-04-2023 End: 03-04-2023 2 g, Intravenous, Administer over 4 Hours, DAILY, First dose on Fri03/04/23 at 0600, Until Discontinued Give if magnesium is less than 2 on morning labs. Infuse at a rate of 0.5 gm/hour. melatonin 5 mg oral tablet (9 sources) Start: 12-16-2024 End: 12-18-2024 5 mg, Tube, Nightly PRN, Sle ep, Starting on Betty 12/16/24 at 0045, If still awake in 1 hour proceed to trazodone (Desyrel) Start: 07-04-2024 End: 07-06-2024 take 6 mg by mouth once daily at bedtime 6 mg, Oral, DAILY AT BEDTIME, First dose on 07/04/24 at 2100, Until Discontinued Start: 11-19-2023 End: 12-25-2023 take 1 tablet by mouth once daily melatonin 1 mg Tab Indications: Insomnia, unspecified type Take 1 (one) tablet (1 mg total) by mouth nightly . 30 tablet 5 11/19/2023 12/25/2023 Discontinued (Stop Taking at Discharge) Start: 05-09-2023 End: 05-11-2023 take 6 mg by mouth once daily at bedtime 6 mg, Oral, DAILY AT BEDTIME, First dose on Fri05/09/23 at 2100, Until Discontinued Start: 03-03-2023 End: 03-04-2023 take 6 mg by mouth once daily at bedtime as needed 6 mg, Oral, DAILY AT BEDTIME NEEDED, Starting on Fri03/03/23 at 1419, Until Fri03/04/23 at 1718, Insomnia metoclopramide 10 mg oral tablet (20 sources) Dopamine-2 Receptor Antagonist Start: 07-04-2024 End: 07-06-2024 take 5 mg by mouth twice daily 5 mg, Oral, 2 TIMES DAILY, First dose on 07/04/24 at 1700, Until Discontinued Start: 06-09-2024 End: 06-09-2024 10 mg, Tube, 2 times daily, First dose on Fri06/09/24 at 0945 Start: 10-31-2023 End: 02-05-2025 take 1 tablet by mouth twice daily metoclopramide (Reglan) 5 mg tablet Indications: Nausea and vomiting, unspecified vomiting type Take 1 tablet (5 mg) by mouth 2 times a day. 60 tablet 11 02/06/2024 09/02/2024 Discontinued (Med List Cleanup) 100 ml metroNIDAZOLE 5 mg/ml injection (5 sources) Nitroimidazole Antimicrobial Start: 07-04-2024 End: 07-04-2024 500 mg, Intravenous, at 200 mL/hr, Administer over 30 Minutes, EVERY 8 HOURS, First dose on Fri07/04/24 at 1400, Until Discontinued Start: 04-07-2021 End: 11-08-2021 metroNIDAZOLE 500 MG tablet Comment on above: Do not drink alcohol ic beverages when taking this medication.Finish all this medication unless otherwise directed by prescriber.May discolor urine or feces. montelukast 10 mg oral tablet (1 source) Leukotriene Receptor Antagonist Start: 03-03-19 End: 03-04-19 take 10 mg by mouth once daily at bedtime 10 mg, Oral, DAILY AT BEDTIME, First dose on 03/03/23 at 2100, Until Discontinued 1 ml morphine sulfate 4 mg/ml prefilled syringe (1 source) Opioid Agonist Start: 11-15-19 End: 11-15-19 4 mg, intravenous, Once, On 11/15/23 at 1545, For 1 dose MULTIPLE VITAMIN PO (3 sources) End: 11-09-19 MULTIPLE VITAMIN PO Take by mouth. 0 11/08/2021 Discontinued (Patient Preference) MULTIPLE VITAMIN PO Take by mouth. 0 Active Multiple Vitamins-Minerals (CENTRUM SILVER 50+MEN PO) (9 sources) End: 05-25-2023 Multiple Vitamins-Minerals (CENTRUM SILVER 50+MEN PO) Take by mouth. 05/25/2023 Discontinued (Medication Reconciliation (suppress cancel msg)) Multiple Vitamin s-Minerals (CENTRUM SILVER 50+MEN PO) Take by mouth. Active Multiple Vitamin s-Minerals (CENTRUM SILVER 50+MEN PO) Take by mouth. 0 Active multivitamin (THERA M PLUS) tablet 1 tablet (1 source) Start: 03-03-2023 End: 03-04-2023 take 1 tablet by mouth once daily 1 tablet, Oral, DAILY, First dose on Fri03/03/23 at 1500, Until Discontinued naloxone (NARCAN) injection 0.1 mg (3 sources) Start: 11-17-2024 End: 11-22-2024 naloxone (NARCAN) injection 0.1 mg Start: 06-08-2024 End: 06-09-2024 naloxone (NARCAN) injection 0.1 mg Start: 12-24-2023 End: 12-25-2023 naloxone (NARCAN) injection 0.1 mg nitroglycerin 0.4 mg sublingual tablet (2 sources) Nitrate Vasodilator Start: 07-30-2024 End: 07-31-2024 0.4 mg, Sublingual, EVERY 5 MINUTES NEEDED, Starting on Fri07/30/24 at 1220, Until 07/31/24 at 1740, Chest pain, Maximum of three consecutive doses in 15 minutes. Do not chew, crush, or swallow sublingual tablet. Place under tongue and allow to dissolve. Alternately, may be placed in the buccal pouch. Start: 06-07-2024 End: 06-09-2024 Non-Formulary Enteral Feed (2 sources) Start: 07-05-2024 End: 07-06-2024 PEG Tube, CONTINUOUS, Starti ng on Fri07/05/24 at 1900, Until Fri07/06/24 at 0659, will bring in formula from home Free water flush 80 ml every 2 hrs (wait 2 hours after bolus feeds), Brand Name: Complete 1.5, Dosing: Cycled, Starting cycled feed rate (mL/hr): 94, Goal cycled feed rate (mL/hr): 94, Cycled feed duration (hours): 12 Start: 07-05-2024 End: 07-06-2024 PEG Tube, 3 times daily ente ral feeds, First dose on Fri07/05/24 at 1200, Until Discontinued, 3-4 times per day - per /patient Flush with 30 ml before and after each bolus, Brand Name: [facility], Dosing: Bolus, Starting amount (mL): 250, Goal amount (mL): 250 omeprazole 20 mg delayed release oral capsule (20 sources) Proton Pump Inhibitor Start: 11-05-2017 End: 09-25-2023 take 1 capsule by mouth once daily omeprazole [address] capsule Indications: Gastroesophageal reflux disease without esophagitis Take 1 capsule by mouth daily. 90 capsule 1 01/24/2021 07/18/2021 Discontinued End: 07-18-2021 omepraz[address] tabl et Take by mouth. 0 07/18/2021 Discontinued Comment on above: Take 20 mg by mouth once daily. omeprazole 20 mg cap eric,delayed release 2 ml ondansetron 2 mg/ml injection (20 sources) Serotonin-3 Receptor Antagonist Start: End: take 4 mg intravenously every six hours as needed 4 mg, Intravenous, EVERY 6 HOURS NEEDED, Starting on Fri07/30/24 at 1221, Until 07/31/24 at 1740, Nausea / Vomiting Start: 07-04-2024 End: 07-06-2024 take 4 mg intravenously every four hours as needed 4 mg, Intravenous, EVERY 4 HOURS NEEDED, Starting on Fri07/04/24 at 1409, Until Fri07/06/24 at 2004, Nausea / Vomiting Start: 07-04-2024 End: 07-04-2024 4 mg, Intravenous, ONCE, 1 d ose, On Fri07/04/24 at 1115 Start: 11-16-2023 End: 07-31-2024 ondansetron 4 MG/5ML solutio n 11/16/2023 07/31/2024 Discontinued (Stop Taking at Discharge) Start: 11-15-2023 End: 11-15-2023 4 mg, intravenous, Once, On 11/15/23 at 1545, For 1 dose, When administering via IV Push, administer over 3-5 minutes. Start: 11-15-2023 End: 11-15-2023 take 10 mL by mouth once ondansetron (Zofran) 4 mg/5 mL solution Indications: Nausea and vomiting, unspecified vomiting type Take 10 mL (8 mg) by mouth 1 time for 1 dose. 50 mL 2 11/15/2023 11/15/2023 Active Start: 11-11-2023 End: 11-11-2023 4 mg, intravenous, Once, On Tu11/11/23 at 0715, For 1 dose, Preprocedure, When administering via IV Push, administer over 3-5 minutes. Start: 11-11-2023 End: 11-11-2023 4 mg, intravenous, Once, On 11/11/23 at 0715, For 1 dose, Preprocedure, When administering via IV Push, administer over 3-5 minutes. Start: 06-14-2023 End: 06-17-2023 take 4 mg intravenously every four hours as needed Start: 05-25-2023 End: 05-26-2023 take 4 mg intravenously every four hours as needed Start: 05-24-2023 End: 05-24-2023 4 mg, Intravenous, ONCE, 1 d ose, On 05/24/23 at 2015 Start: 05-09-2023 End: 05-11-2023 take 4 mg intravenously every four hours as needed 4 mg, Intravenous, EVERY 4 HOURS NEEDED, Starting on 05/09/23 at 1305, Until 05/11/23 at 1939, Nausea / Vomiting Start: 04-19-2023 End: 04-20-2023 take 4 mg intravenously every six hours as needed 4 mg, Intravenous, EVERY 6 HOURS NEEDED, Starting on 04/19/23 at 0631, Until 04/20/23 at 1537, Nausea / Vomiting Start: 04-07-2023 End: 04-08-2023 take 4 mg intravenously every four hours as needed 4 mg, Intravenous, EVERY 4 HOURS NEEDED, Starting on Fri04/07/23 at 1126, Until Fri04/08/23 at 1911, Nausea / Vomiting Start: 03-03-2023 End: 03-04-2023 take 4 mg intravenously every four hours as needed 4 mg, Intravenous, EVERY 4 HOURS NEEDED, Starting on Fri03/03/23 at 1131, Until Fri03/04/23 at 1718, Nausea / Vomiting ondansetron (ZOFRAN-ODT) disintegrating tablet 4 mg (2 sources) Start: 12-16-2024 End: 12-18-2024 take 1 tablet by mouth every six hours as needed for nausea and vomiting ondansetron (ZOFRAN-ODT) disintegrating tablet 4 mg Start: 12-22-2023 End: 11-07-2024 take 1 tablet by mouth every six hours as needed for nausea and vomiting ondansetron (ZOFRAN-ODT) disintegrating tablet 4 mg oxyCODONE hydrochloride 5 mg oral tablet (1 source) Opioid Agonist Start: 12-24-2023 End: 12-25-2023 take 1 tablet by mouth every six hours as needed 5 mg, Oral, Every 6 hours PRN, moderate to severe pain, Starting on Fri12/24/23 at 1110 pantoprazole 40 mg injection (20 sources) Proton Pump Inhibitor Start: 07-30-2024 End: 07-31-2024 40 mg, Intravenous, DAILY, First dose on Fri07/30/24 at 1300, Until Discontinued, Dilute each 40 mg vial with 10 mL of NS. All bolus doses, whether 40 mg or 80 mg, should be administered over at least two minutes., Indications: Inpt Stress Ulcer Prophylaxis Start: 07-05-2024 End: 07-06-2024 40 mg, Intravenous, DAILY, F irst dose on Fri07/05/24 at 1415, Until Discontinued, Dilute each 40 mg vial with 10 mL of NS. All bolus doses, whether 40 mg or 80 mg, should be administered over at least two minutes., Indications: Inpt Stress Ulcer Prophylaxis Start: 07-04-2024 End: 07-04-2024 40 mg, Intravenous, ONCE, 1 dose, On Fri07/04/24 at 1115, Dilute each 40 mg vial with 10 mL of NS. All bolus doses, whether 40 mg or 80 mg, should be administered over at least two minutes., Indications: Inpt Stress Ulcer Prophylaxis Start: 08-07-2023 Pantoprazole S odium Powder 40 mg by PEG Tube route daily. 100 g 1 08/07/2023 Active Start: 07-09-2023 End: 07-31-2023 take 1 dose by mouth once daily before breakfast pantoprazole Sodium 40 MG Pack Take 1 packet by mouth every morning before breakfast. am 30 Each 5 07/09/2023 07/31/2023 Discontinued (Other (suppress cancel msg)) Start: 06-16-2023 End: 06-17-2023 40 mg, PEG Tube, DAILY BEFOR E BREAKFAST, First dose on Fri06/16/23 at 0600, Until Discontinued, Must mix with APPLE JUICE or APPLESAUCE ONLY to maintain integrity of granules. A 16 [place] or larger bore tube is necessary for administration., Indications: GERD Start: 05-25-2023 End: 05-26-2023 40 mg, Intravenous, EVERY 12 HOURS, First dose (after last modification) on 05/25/23 at 2100, Until Discontinued, Dilute each 40 mg vial with 10 mL of NS. All bolus doses, whether 40 mg or 80 mg, should be administered over at least two minutes., Indications: Inpt Stress Ulcer Prophylaxis Start: 05-24-2023 End: 05-25-2023 40 mg, Intravenous, DAILY, F irst dose on 05/25/23 at 1000, Until Discontinued, Dilute each 40 mg vial with 10 mL of NS. All bolus doses, whether 40 mg or 80 mg, should be administered over at least two minutes., Indications: Inpt Stress Ulcer Prophylaxis Start: 05-09-2023 End: 05-11-2023 40 mg, Intravenous, DAILY, F irst dose on Fri05/09/23 at 1345, Until Discontinued, Dilute each 40 mg vial with 10 mL of NS. All bolus doses, whether 40 mg or 80 mg, should be administered over at least two minutes., Indications: Inpt Stress Ulcer Prophylaxis Start: 04-20-2023 End: 04-20-2023 40 mg, Intravenous, DAILY, F irst dose on Fri04/20/23 at 0900, Until Discontinued, Dilute each 40 mg vial with 10 mL of NS. All bolus doses, whether 40 mg or 80 mg, should be administered over at least two minutes., Indications: Inpt Stress Ulcer Prophylaxis Start: 04-07-2023 End: 04-08-2023 40 mg, Intravenous, DAILY, F irst dose on Fri04/07/23 at 1215, Until Discontinued, Dilute each 40 mg vial with 10 mL of NS. All bolus doses, whether 40 mg or 80 mg, should be administered over at least two minutes., Indications: Inpt Stress Ulcer Prophylaxis Start: 04-06-2021 End: 09-16-[address] (PROTONIX) 4 0 mg tablet 10/25/2021 09/16/2024 Discontinued Start: 04-06-2021 End: 04-26-2021 take 1 tablet by mouth twice daily pantoprazole 40 mg oral delayed release tablet ; 1 tab(s) orally 2 times a day Quantity: 42 Refills: 0 Ordered: 06-Apr-2021 CyndeeCarmel harris Start: 06-Apr-2021 End: 26-Apr-2021 Generic Substitution Allowed Comments: It is very important that you take or use this exactly as directed. Do not skip doses or discontinue unless directed by your doctor.Obtain medical advice before taking any non-prescription drugs as some may affect the action of this medication.Swallow whole. Do not crush. End: 06-27-2023 take 1 dose by mouth once daily before breakfast pantoprazole Sodium 40 MG Pack Take 1 packet by mouth every morning before breakfast. am 06/27/2023 Discontinued (Reorder) Comment on above: It is very important that you take or use this exactly as directed. Do not skip doses or discontinue unless directed by your doctor.Obtain medical advice before taking any non-prescription drugs as some may affect the action of this medication.Swallow whole. Do not crush. 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 90 tablet 11 05/19/2023 09/25/2023 Discontinued (Patient's Request) End: 09-16-2024 pilocarpine (ISOPTO CARPINE) 2 % ophthalmic solution 1 Drop. 09/16/2024 Discontinued End: 09-01-2023 take 1 drop(s) by mouth three times daily as needed pilocarpine 2 % Solution 1 drop 3 times daily as needed for Other (PO for secretions). 09/01/2023 Discontinued (Discontinued by another clinician (suppress cancel msg)) End: 08-07-2023 take 1 tablet by mouth once daily PILOCARPINE HCL PO Take 1 tablet by mouth daily. 08/07/2023 Discontinued (Therapy completed) take 1 tablet by [facility] once daily PILOCARPINE HCL PO Take 1 tablet by mouth daily. Active Comment on above: 1 Drop. piperacillin 3000 mg / tazobactam 375 mg injection (4 sources) Penicillin-class Antibacterial, beta Lactamase Inhibitor Start: End: take 3.375 g intravenously every eight hours 3.375 g, Intravenous, at 12.5 mL/hr, Every 8 hours, First dose on [place] 11/18/24 at 0400, For 7 days, Start infuse 3 hours after loading dose of Zosyn 4.5 gm VESICANT, Indication: Sepsis Start: 11-18-2024 End: 11-18-2024 4.5 g, Intravenous, at 200 m L/hr, Once, On [place] 11/18/24 at 0000, For 1 dose, VESICANT, Indication: Sepsis Start: 05-09-2023 End: 05-11-2023 3.375 g, Intravenous, Admini ster over 4 Hours, EVERY 8 HOURS NON-STANDARD, First dose on Fri05/09/23 at 1800, Until Discontinued, Infuse STAT doses over 30 minutes. Infuse other doses over 4 hours. Contains a penicillin., Indications: Empiric therapy polyethylene glycol 3350 28261 mg powder for oral solution (2 sources) Osmotic Laxative Start: 07-04-2024 End: 07-06-2024 17 g, Oral, DAILY, First dose on [place] 07/04/24 at 1415, Until Discontinued, Hold if diarrhea Start: 06-15-2023 End: 06-17-2023 17 g, Oral, DAILY, First dos e on [place] 06/15/23 at 1030, Until Discontinued, Hold if diarrhea polyethylene glycol 400 10 m g/ml ophthalmic solution (1 source) Start: 12-16-2024 End: 12-18-2024 potassium bicarbonate 25 meq effervescent oral tablet (2 sources) Start: 11-20-2024 End: 11-20-2024 25 mEq, Tube, Once, On 11/20/24 at 0530, For 1 dose, For serum Potassium in range of 3.5-4 mEq/L per Critical Care Electrolyte Replacement Therapy. Pause the enteral feed (if applicable), and flush tube with 10 mL water. Dissolve tablet completely in 3-4 ounces of cold water or juice using a container of appropriate size (do NOT dissolve in syringe to avoid gas production and clogging of tube). Ensure tablets are completely dissolved (no fizz) to avoid gas production in the enteral feeding tube and clogging of tube. Draw up dose in syringe. Inspect contents of syringe to ensure no visible particles that might cause blockage. Administer dose via tube. Flush with 10 mL water. Restart feeds (if applicable). Dissolve tablet completely in 3-4 ounces of cold water or juice Start: 11-19-2024 End: 11-19-2024 25 mEq, Tube, Once, On Fri at 0500, For 1 dose, For serum Potassium in range of 3.5-4 mEq/L per Critical Care Electrolyte Replacement Therapy. Pause the enteral feed (if applicable), and flush tube with 10 mL water. Dissolve tablet completely in 3-4 ounces of cold water or juice using a container of appropriate size (do NOT dissolve in syringe to avoid gas production and clogging of tube). Ensure tablets are completely dissolved (no fizz) to avoid gas production in the enteral feeding tube and clogging of tube. Draw up dose in syringe. Inspect contents of syringe to ensure no visible particles that might cause blockage. Administer dose via tube. Flush with 10 mL water. Restart feeds (if applicable). Dissolve tablet completely in 3-4 ounces of cold water or juice potassium chloride 1.33 meq/ ml oral solution (10 sources) Start: 11-21-2024 End: 11-21-2024 20 mEq, Tube, Once, On [place] 11/21/24 at 0615, For 1 dose, 20mEq per tube x 1 for serum Potassium in range of 3.5-4 mEq/L per Critical Care Electrolyte Replacement Therapy. Dilute with 4 oz. of water or juice., Ordering of this medication is restricted. Please select which of the following applies: Patient has a small bowel feeding tube Start: 11-18-2024 End: 11-18-2024 take 3.5-4 mEq intravenously once 20 mEq, Intravenous, at 100 mL/hr, Once, On [place] 11/18/24 at 0615, For 1 dose, 20mEq IVPB via CENTRAL LINE over 60 minutes x 1 for serum Potassium in range of 3.5-4 mEq/L per Critical Care Electrolyte Replacement Therapy. (CRITICAL CARE) VESICANT Start: 07-31-2024 End: 07-31-2024 Potassium chloride (K-DUR) t ablet ER 40 mEq Start: 07-05-2024 End: 07-06-2024 Potassium chloride (K-DUR) t ablet ER 40 mEq Start: 06-16-2023 End: 06-17-2023 Potassium chloride (K-DUR) t ablet ER 40 mEq Start: 05-26-2023 End: 05-26-2023 Potassium chloride (K-DUR) t ablet ER 40 mEq Start: 05-10-2023 End: 05-11-2023 Potassium chloride (K-DUR) t ablet ER 40 mEq Start: 04-20-2023 End: 04-20-2023 Potassium chloride (K-DUR) t ablet ER 40 mEq Start: 04-08-2023 End: 04-08-2023 Potassium chloride (K-DUR) t ablet ER 40 mEq Start: 03-04-2023 End: 03-04-2023 Potassium chloride (K-DUR) t ablet ER 40 mEq Potassium phosphates 30 mmol in Sodium chloride 0.9%, with overfill 560 mL (total volume) IVPB (3 sources) Start: 06-15-2023 End: 06-17-2023 30 mmol, Intravenous, Admini ster over 6 Hours, DAILY NEEDED, Starting on Fri06/15/23 at 1005, Until Tu06/17/23 at 1601, Other, If phospate Start: 05-25-2023 End: 05-26-2023 Start: 05-09-2023 End: 05-11-2023 30 mmol, Intravenous, Admini ster over 6 Hours, DAILY NEEDED, Starting on Fri05/09/23 at 1305, Until Fri05/11/23 at 1939, Other, If phospate potassium, sodium phosphates (PHOS-NAK) 280-160-250 mg packet 1 packet (1 source) Start: 12-17-2024 End: 12-18-2024 1 packet, Oral, 4 times myesha y with meals and nightly, First dose on Fri12/17/24 at 1000, For 1 day, mg dosing is based on phosphorus component. Each packet contains 250 mg elemental phosphorus. potassium, sodium phosphates (PHOS-NAK) 280-160-250 mg packet 2 packet (1 source) Start: 11-19-2024 End: 11-19-2024 2 packet, Tube, Every 8 hour s, First dose on Fri11/19/24 at 0500, For 3 doses, 500mg elemental Phosphorus (2 packets) Per tube x 3 for serum Phosphorus in range of 1-1.6 mg/dL per Critical/ Intermediate Care Electrolyte Replacement Therapy. Mix contents of two packets in at least 150ml of water or juice. ORDER repeat Phosphorus level 4 hours after third dose. predniSONE 10 mg oral tablet (17 sources) Start: 04-08-2024 End: 07-31-2024 predniSONE 10 MG tablet Indications: LRTI (lower respiratory tract infection) Take 4 tablets by mouth for 3 days, then take 3 tablets by mouth for 3 days, then take 2 tablets by mouth for 3 days, 1 tablet for 3 days 30 tablet 07/06/2024 07/31/2024 Discontinued (Stop Taking at Discharge) Start: 06-17-2023 End: 08-07-2023 predniSONE 10 MG tablet 4 ta bs po daily x 3 days, 3 tabs po daily x 3 days, 2 tabs po daily x 3 days, 1 tab po daily x 3 days, then discontinue 30 tablet 06/17/2023 08/07/2023 Discontinued (Therapy completed) Start: 05-26-2023 End: 06-05-2023 take 2 tablets by mouth twice daily, then take 1 tablet by mouth twice daily, then take 0.5 tablet by mouth twice daily predniSONE 20 MG tablet Take 2 tablets by mouth 2 times daily for 3 days, THEN 1 tablet 2 times daily for 4 days, THEN 0.5 tablets 2 times daily for 4 days. 24 tablet 05/26/2023 06/05/2023 Active Start: 05-11-2023 End: 05-26-2023 predniSONE 10 MG tablet 4 ta bs po daily x 3 days, 3 tabs po daily x 3 days, 2 tabs po daily x 3 days, 1 tab po daily x 3 days, then discontinue 30 tablet 05/11/2023 05/26/2023 Discontinued (Stop Taking at Discharge) Start: 04-20-2023 End: 04-30-2023 take 2 tablets by mouth twice daily, then take 1 tablet by mouth twice daily, then take 0.5 tablet by mouth twice daily predniSONE 20 MG tablet Take 2 tablets by mouth 2 times daily for 3 days, THEN 1 tablet 2 times daily for 4 days, THEN 0.5 tablets 2 times daily for 4 days. 24 tablet 04/20/2023 04/30/2023 Active Start: 03-04-2023 End: 04-08-2023 predniSONE 10 MG tablet 4 ta bs po daily x 3 days, 3 tabs po daily x 3 days, 2 tabs po daily x 3 days, 1 tab po daily x 3 days, then discontinue 30 tablet 03/04/2023 04/08/2023 Discontinued (Stop Taking at Discharge) promethazine hydrochloride 25 mg rectal suppository (5 sources) Phenothiazine Start: 11-15-2023 End: 07-06-2024 Promethegan 25 MG Suppository suppository 11/16/2023 07/06/2024 Discontinued (Stop Taking at Discharge) propylene glycol/peg 400 (BLINK TEARS LUBRICATING) Eye Drops (20 sources) End: 09-16-2024 propylene glycol/peg 400 (BLINK TEARS LUBRICATING) Eye Drops Use 1 Drop in both eyes as needed. 09/16/2024 Discontinued propylene glycol /peg 400 (BLINK TEARS LUBRICATING) Eye Drops Use 1 Drop in both eyes as needed. Active propylene glycol /peg 400 (BLINK TEARS LUBRICATING) Eye Drops Use 1 Drop in both eyes as needed. 0 Active Comment on above: Use 1 Drop in both e yes as needed. revefenacin 0.0583 mg/ml inhalation solution (20 sources) Start: End: take 175 ug by inhalation once daily revefenacin (YUPELRI) 175 mcg/3 mL solution for nebulization Inhale 175 mcg as instructed once daily. 12/31/2023 09/16/2024 Discontinued (Side Effects) Start: 12-31-2023 End: 02-05-2025 take 3 mL by inhalation once daily Revefenacin (Yupelri) 175 MCG/3ML Solution Indications: Chronic obstructive pulmonary disease, unspecified COPD type Inhale 3 mL daily. 90 mL 11 02/06/2024 07/31/2024 Discontinued (Stop Taking at Discharge) End: 03-17-2024 revefenacin (Yupelri) 175 mc g/3 mL Nebu Inhale . 03/17/2024 Discontinued roflumilast 0.5 mg oral tablet (20 sources) Phosphodiesterase 4 Inhibitor Start: 12-16-2024 End: 12-18-2024 500 mcg, Tube, Daily, First dose (after last modification) on Betty 12/16/24 at 0900 Start: 11-19-2024 End: 11-22-2024 500 mcg, Tube, Daily, First dose (after last modification) on Fri11/19/24 at 0900 Start: 11-18-2024 End: 11-18-2024 take 500 ug by mouth once daily 500 mcg, Oral, Daily, First dose on Fri11/18/24 at 0900 Start: 09-05-2024 roflumilast (D ALIRESP) 500 mcg tablet 1 (one) tablet (500 mcg total) by Per G Tube route daily in the afternoon . 09/05/2024 Active Start: 04-22-2024 End: 10-25-2024 roflumilast (DALIRESP) 500 m cg tablet 09/05/2024 Active rosuvastatin calcium 5 mg oral tablet (20 sources) HMG-CoA Reductase Inhibitor Start: 07-16-2023 End: 07-06-2024 take 1 tablet by mouth once daily Rosuvastatin (Crestor) 5 MG tablet Indications: Hyperlipidemia, unspecified hyperlipidemia type Take 1 tablet by mouth daily. 90 tablet 1 07/16/2023 07/06/2024 Discontinued (Stop Taking at Discharge) Start: 07-18-2013 End: 09-16-2024 take 1 tablet by mouth once daily Rosuvastatin (Crestor) 5 MG tablet Indications: Hyperlipidemia, unspecified hyperlipidemia type Take 1 tablet by mouth daily. 14 tablet 02/19/2023 07/09/2023 Discontinued (Reorder) Comment on above: Take 5 mg by mouth o nce daily. saliva substitute (MOUTH KOTE) oral spray 3-5 spray (1 source) Start: 06-15-2023 End: 06-17-2023 sennosides, group home 8.6 mg oral tablet (1 source) Start: 12-22-2023 End: 12-25-2023 sertraline 50 mg oral tablet (20 sources) Serotonin Reuptake Inhibitor Start: 12-16-2024 End: 12-18-2024 50 mg, Tube, Daily, First dose (after last modification) on [place] 12/16/24 at 0900 Start: 11-18-2024 End: 11-18-2024 take 50 mg by mouth once daily 50 mg, Oral, Daily, Fir st dose on Betty 11/18/24 at 0900 Start: 07-31-2024 End: 07-31-2024 25 mg, PEG Tube, DAILY, Firs t dose (after last modification) on 07/31/24 at 0900, Until Discontinued Start: 07-04-2024 End: 07-06-2024 take 25 mg by mouth once daily 25 mg, Oral, DAILY, Fir st dose on 07/04/24 at 1800, Until Discontinued Start: 12-15-2023 End: 11-03-2025 take 1 tablet by mouth once daily sertraline (ZOLOFT) 50 MG tablet Indications: Anxiety and depression Take 1 (one) tablet (50 mg total) by mouth daily . 90 tablet 3 11/03/2024 11/03/2025 Start: 07-02-2023 End: 09-25-2023 take 1 tablet by mouth once daily sertraline (Zoloft) 25 mg tablet Take 1 tablet (25 mg) by mouth once daily. 07/02/2023 Active 1000 ml sodium chloride 9 mg /ml injection (20 sources) Start: 12-16-2024 End: 12-16-2024 Starting on [place] 12/16/24 at 0051, For 1 dose, DREW GONZÁLES: cabinet override Start: 12-16-2024 End: 12-18-2024 Start: 12-15-2024 End: 12-18-2024 sodium chloride (PF) (NS) fl ush 5 mL Start: 12-15-2024 End: 12-18-2024 sodium chloride (PF) (NS) fl ush 5 mL Start: 11-17-2024 End: 11-18-2024 Starting on Fri11/17/24 at 2353, For 1 dose, Bonnie Gamez: cabinet override Start: 11-17-2024 End: 11-17-2024 Starting on Fri11/17/24 at 2328, For 1 dose, Mukul Wetzel: augustina override Start: 11-17-2024 End: 11-22-2024 10 mL, Intracatheter, Every 8 hours scheduled, First dose on Fri11/17/24 at 2320, Flush UNUSED central venous catheter lumens. Start: 11-17-2024 End: 11-17-2024 2,397 mL (30 mL/kg 79.9 kg [place] weight), Intravenous, at 1,198.5 mL/hr, Once, On Fri11/17/24 at 1900, For 1 dose Start: 11-17-2024 End: 11-22-2024 sodium chloride (PF) (NS) fl ush 5 mL Start: 07-31-2024 End: 07-31-2024 Intravenous, at 100 mL/hr, CONTINUOUS, Starting on 07/31/24 at 0815, Until 07/31/24 at 1740 Start: 06-07-2024 End: 06-09-2024 sodium chloride (PF) (NS) fl ush 5 mL Start: 11-15-2023 End: 11-15-2023 take 150 mL intravenously every hour 150 mL/hr, intrav enous, Continuous, Starting on 11/15/23 at 1545 Start: 06-14-2023 End: 06-17-2023 Intravenous, at 100 mL/hr, CONTINUOUS, Starting on 06/14/23 at 2100, Until Tu06/17/23 at 1601 Start: 06-14-2023 End: 06-14-2023 1,000 mL, Intravenous, ONCE, 1 dose, On 06/14/23 at 1900 Start: 05-24-2023 End: 05-24-2023 75 mL, Intravenous, ONCE, 1 dose, On 05/24/23 at 2145, Radiology Procedure Start: 05-24-2023 End: 05-26-2023 Intravenous, at 125 mL/hr, CONTINUOUS, Starting on 05/25/23 at 0115, Until 05/25/23 at 0909 Start: 05-09-2023 End: 05-09-2023 75 mL, Intravenous, ONCE, 1 dose, On Fri05/09/23 at 1145, Radiology Procedure Start: 05-09-2023 End: 05-11-2023 Intravenous, at 125 mL/hr, CONTINUOUS, Starting on Fri05/09/23 at 0830, Until 05/11/23 at 1939 Start: 04-07-2023 End: 04-08-2023 Intravenous, at 100 mL/hr, CONTINUOUS, Starting on 04/07/23 at 0830, Until Tu04/08/23 at 1911, STOP AFTER 1 LITER Start: 03-03-2023 End: 03-03-2023 Intravenous, at 75 mL/hr, CONTINUOUS, Starting on Fri03/03/23 at 1145, Until Fri03/03/23 at 1244 Start: 03-03-2023 End: 03-03-2023 Sodium chloride 0.9% IV solution 75 mL Spacer/Aero-Holding Chambers (EasiVent) Misc (2 sources) Start: 06-04-2023 End: 09-01-2023 Spacer/Aero-Holding Chambers (EasiVent) Misc As directed. use with inhaler 06/04/2023 09/01/2023 Discontinued Start: 06-04-2023 Spacer/Aero-Ho lding Chambers (EasiVent) Misc As directed. use with inhaler 06/04/2023 Active sucralfate 100 mg/ml oral suspension (9 sources) Aluminum Complex Start: 07-14-2024 End: 09-18-2024 sucralfate (CARAFATE) 100 mg/mL suspension Indications: Gastroesophageal reflux disease, unspecified whether esophagitis present 10 mL (1 g total) by Per G Tube route 4 (four) times a day for 7 days . 280 mL 07/14/2024 09/18/2024 Discontinued sulindac 150 mg oral tablet (20 sources) Nonsteroidal Anti-inflammatory Drug Start: 08-09-2023 End: 08-07-2023 take 1 tablet by mouth twice daily sulindac 150 MG tablet Take 1 tablet by mouth 2 times daily. 60 tablet 4 08/09/2023 08/07/2023 Discontinued (Ineffective) Start: 02-21-2023 End: 09-16-2024 sulindac (CLINORIL) 150 mg t ablet 02/21/2023 09/16/2024 Discontinued SUMAtriptan 25 mg oral tablet (20 sources) Serotonin-1b and Serotonin-1d Receptor Agonist Start: 12-16-2024 End: 12-18-2024 take 1 tablet by mouth every two hours as needed 50 mg, Tube, Every 2 hour PRN, migraine, Starting on [place] 12/16/24 at 0045, May repeat dose in 2 hours if no relief. Do not exceed 200 mg in 24 hours. Start: 11-17-2024 End: 11-22-2024 take 1 tablet by mouth every two hours as needed 50 mg, Tube, Every 2 hour PRN, migraine, Starting on [place] 11/18/24 at 0818, May repeat dose in 2 hours if no relief. Do not exceed 200 mg in 24 hours. Start: 07-04-2024 End: 07-06-2024 50 mg, Oral, 2 TIMES DAILY A S NEEDED, Starting on 07/04/24 at 1400, Until 07/06/24 at 2004, Migraine, Max 200 mg/24 hr Start: 11-19-2023 SUMAtriptan (I MITREX) 50 MG tablet Indications: Migraine without aura and without status migrainosus, not intractable Take 1 (one) tablet (50 mg total) by mouth every 2 (two) hours as needed for migraine Max of 200 mg in 24hrs, do not treat more than 3 times a week . 10 tablet 11/19/2023 Active Start: 07-23-2022 End: 07-23-2023 SUMAtriptan (IMITREX) 50 MG tablet Indications: Migraine without aura and without status migrainosus, not intractable Take 1 (one) tablet (50 mg total) by mouth every 2 (two) hours as needed for migraine Max of 200 mg in 24hrs, do not treat more than 3 times a week . 10 tablet 07/23/2022 Active tamsulosin hydrochloride 0.4 mg oral capsule (20 sources) alpha-Adrenergic Elliot Start: 12-19-2023 End: 11-22-2024 take 1 capsule by mouth once daily tamsulosin (Flomax) 0.4 mg 24 hr capsule Take 1 capsule (0.4 mg) by mouth once daily. 12/19/2023 09/02/2024 Discontinued (Med List Cleanup) 2500 mg testosterone 0.01 mg/mg topical gel (20 sources) Androgen Start: 02-20-2023 End: 07-31-2024 Testosterone 25 MG/2.5GM (1%) Gel gel Indications: Testicular hypofunction Place 2.5 g on skin daily. 225 g 06/27/2023 07/31/2024 Discontinued (Stop Taking at Discharge) Start: 01-29-2021 End: 05-08-2022 Testosterone 50 MG/5GM (1%) Gel gel Indications: Testicular hypofunction Place 0.5 Tubes on skin daily. 225 g 1 11/27/2021 02/07/2022 Discontinued (Reorder) Start: 02-28-2017 End: 09-16-2024 testosterone (ANDROGEL) 50 m g/5 g (1%) gel Apply 0.5 Tubes as directed once daily. 02/28/2017 09/16/2024 Discontinued End: 03-22-2024 testosterone (Androgel) 12.5 mg/ 1.25 gram (1 %) gel in metered-dose pump Place 4 Pump (50 mg) on the skin once daily. 03/22/2024 Discontinued (Med List Cleanup) End: 01-13-2024 testosterone (ANDROGEL) 1 % (50 mg/5 gram) GlPk Place 25 mg on the skin daily . 01/13/2024 Discontinued testosterone (AN DROGEL) 1 % (50 mg/5 gram) GlPk Place 0.05 g on the skin daily . Active testosterone top ical 2% ointment ; Apply topically to affected area once a day Quantity: 0 Refills: 0 Ordered: 05-Apr-2021 Win Andrea Generic Substitution Allowed Comment on above: Apply 0.5 Tubes as d irected once daily. thiamine 100 mg oral tablet (5 sources) Start: End: take 100 mg by mouth once daily 100 mg, Oral, DAILY, First dose on Fri04/07/23 at 1215, Until Discontinued tiotropium 0.018 mg inhalation powder (14 sources) Anticholinergic Start: 025 End: take 1 capsule by inhalation once daily tiotropium (SPIRIVA) [address] 1 (one) capsule (18 mcg total) into inhaler and inhale daily . 09/07/2024 11/16/2024 Discontinued traMADol hydrochloride 50 mg oral tablet (20 sources) Opioid Agonist Start: 025 End: 025 take 1 tablet by mouth every six hours as needed 50 mg, Oral, EVERY 6 HOURS NEEDED, Starting on 07/04/24 at 1409, Until 07/06/24 at 2004, Moderate Pain Start: 04-07-2023 End: 09-18-2024 take 1 tablet by mouth every four hours as needed traMADol (Ultram) 50 MG tablet Indications: Chronic pain due to neoplasm Take 1 tablet by mouth every 4 hours as needed. 180 tablet 1 07/29/2023 07/31/2024 Discontinued (Stop Taking at Discharge) Start: 02-19-2023 End: 06-17-2023 take 1 tablet by mouth three times daily as needed traMADol 50 MG tablet Indications: Arthritis Take 1 tablet by mouth 3 times daily as needed. 21 tablet 02/19/2023 06/17/2023 Discontinued (Stop Taking at Discharge) Start: 01-24-2021 End: 05-08-2022 take 1 tablet by mouth three times daily as needed traMADol 50 MG tablet Indications: Arthritis Take 1 tablet by mouth 3 times daily as needed. 270 tablet 0 11/08/2021 02/07/2022 Discontinued (Reorder) Start: 09-11-2017 End: 04-01-2018 take 1 tablet by mouth three times daily as needed traMADol 50 MG Tab tablet Indications: Arthritis Take 1 tablet by mouth 3 times daily as needed. 270 tablet 0 01/01/2018 04/01/2018 Active Start: 02-28-2017 End: 09-16-2024 take 1 tablet by mouth twice daily traMADol (ULTRAM) 50 mg tablet Take 1 tablet by mouth twice daily. 02/28/2017 09/16/2024 Discontinued End: 06-17-2023 take 1 tablet by mouth every six hours as needed traMADol 50 MG tablet Take 1 tablet by mouth every 6 hours as needed. 06/17/2023 Discontinued (Stop Taking at Discharge) take 2 tablets by mo uth once daily in the morning traMADol 50 mg oral tablet ; 2 tab(s) orally once a day (in the morning) Quantity: 0 Refills: 0 Ordered: 05-Apr-2021 Win Andrea Generic Substitution Allowed take 1 tablet by emelyn th once daily at bedtime traMADol 50 mg oral tablet ; 1 tab(s) orally once a day (at bedtime) Quantity: 0 Refills: 0 Ordered: 05-Apr-2021 Win Andrea Generic Substitution Allowed Comment on above: Take 1 tablet by emelyn twice daily. traZODone hydrochloride 50 mg oral tablet (1 source) Serotonin Reuptake Inhibitor Start: 12-16-2024 End: 12-18-2024 50 mg, Tube, Nightly PRN, sleep, Starting on [facility] 12/16/24 at 0046, To be administered 1 hour after melatonin if still awake. May repeat x 1 dose in 30 minutes if still awake. 30 actuat umeclidinium 0.0625 mg/actuat / vilanterol 0.025 mg/actuat dry powder inhaler (14 sources) Anticholinergic, beta2-Adrenergic Agonist Start: 12-16-2024 End: 12-18-2024 1 Inhalation, Inhalation, Daily, First dose (after last modification) on [facility] 12/16/24 at 1330, Drug Name: umeclidinium-vilanteroL 62.5-25 mcg/actuation DsDv, Form: Inhaler, Length of Therapy: Indefinite, How soon needed? (normally 72 hrs needed to procure): 0-24 hrs, Reason for Non-Formulary: Allergy to the alternative formulary, Will this medication be patient supplied? Yes Start: 09-16-2024 End: 11-22-2024 umeclidinium-vilanteroL 62.5 -25 mcg/actuation DsDv Inhale 1 Inhalation daily . 09/16/2024 Active valsartan 160 mg oral tablet (20 sources) Angiotensin 2 Receptor Elliot Start: 03-04-2018 End: 06-04-2023 valsartan (DIOVAN) 320 mg tablet Take 160 mg by mouth once daily. 0 03/04/2018 06/04/2023 Discontinued Start: 01-01-2018 take 1 tablet by emelyn th once daily valsartan (DIOVAN) 320 MG Tab Take 1 tablet by mouth daily. 90 tablet 1 01/01/2018 Active Start: 12-18-2017 End: 07-23-2024 take 1 tablet by mouth once daily Valsartan (Diovan) 160 MG tablet Take 1 tablet by mouth daily. Check Blood pressure every day. If systolic blood pressure in > 130, then give 80 mg of valsartan (1/2 tablet), if 30 tablet 2 07/09/2023 07/23/2024 Discontinued (Therapy completed) End: 12-23-2023 take 1 tablet by mouth once daily valsartan (DIOVAN) 80 MG tablet Take 1 (one) tablet (80 mg total) by mouth daily . 12/23/2023 Discontinued take 1 capsule by [facility] once daily in the morning valsartan 160 mg oral capsule ; 1 cap(s) orally once a day (in the morning) Quantity: 0 Refills: 0 Ordered: 05-Apr-2021 Win Andrea Generic Substitution Allowed Comment on above: Take 160 mg by mouth once daily. 200 ml vancomycin 5 mg/ml injection (5 sources) Glycopeptide Antibacterial Start: End: take 1000 mg intravenously every twelve hours 1,000 mg, Intravenous, at 200 mL/hr, Every 12 hours, First dose on [facility] 12/16/24 at 1100, Indication: Sepsis Start: 07-04-2024 End: 07-06-2024 take 1000 mg intravenously every eight hours 1,000 mg, Intravenous, EVERY 8 HOURS NON-STANDARD, First dose on [place] 07/04/24 at 1600, Until Discontinued, Infuse at a rate of 1 gram/hour. Extravasation Risk Start: 06-15-2023 End: 06-16-2023 take 1000 mg intravenously every eight hours 1,000 mg, Intravenous, EVERY 8 HOURS NON-STANDARD, First dose on Fri06/15/23 at 0300, Until Discontinued, Infuse at a rate of 1 gram/hour. Extravasation Risk Start: 05-25-2023 End: 05-26-2023 take 1000 mg intravenously every eight hours 1,000 mg, Intravenous, EVERY 8 HOURS NON-STANDARD, First dose on Fri05/25/23 at 1000, Until Discontinued, Infuse at a rate of 1 gram/hour. Extravasation Risk Start: 05-09-2023 End: 05-11-2023 take 1000 mg intravenously every eight hours 1,000 mg, Intravenous, EVERY 8 HOURS NON-STANDARD, First dose on Fri05/09/23 at 2100, Until Discontinued, Infuse at a rate of 1 gram/hour. Extravasation Risk Vancomycin (VANCOCIN) 1,750 mg in Sodium chloride 0.9%, with overfill 585 mL (total volume) IVPB (1 source) Start: 06-14-2023 End: 06-14-2023 1,750 mg, Intravenous, ONCE, 1 dose, On 06/14/23 at 1800, Infuse at a rate of 1 gram/hour. Extravasation Risk vancomycin (VANCOCIN) 1250 mg in sodium chloride 0.9% (NS) 250 mL IVPB (3 sources) Start: 12-17-2024 End: 12-18-2024 take 1250 mg intravenously every twelve hours 1,250 mg, Intravenous, at 200 mL/hr, Every 12 hours, First dose on Fri12/17/24 at 1100, Indication: Sepsis Start: 11-20-2024 End: 11-22-2024 take 1250 mg intravenously every twelve hours 1,250 mg, Intravenous, at 200 mL/hr, Every 12 hours, First dose on 11/20/24 at 1300, Indication: HAP/VAP Start: 11-18-2024 End: 11-18-2024 1,250 mg, Intravenous, at 20 0 mL/hr, Every 18 hours, First dose on [place] 11/18/24 at 0000, Indication: CAP vancomycin (VANCOCIN) 2000 mg in sodium chloride 0.9% 500 mL IVPB (1 source) Start: 12-15-2024 End: 12-15-2024 2,000 mg, Intravenous, at 250 mL/hr, Once, On Fri12/15/24 at 202, For 1 dose, Indication: HAP/VAP Vancomycin HCl in NaCl (VANCOCIN) 1,250 mg in 0.9% NS 250 mL premix IVPB (1 source) Start: 05-09-2023 End: 05-09-2023 1,250 mg, Intravenous, ONCE, 1 dose, On Fri05/09/23 at 1145, Infuse at a rate of 1 gram/hour. Extravasation Risk vitamin b12 1 mg oral tablet (19 sources) Vitamin B12 Start: 12-16-2024 End: 12-18-2024 cyanocobalamin, vitamin B-12, 2,500 mcg Tab 1 (one) tablet (2,500 mcg total) by Per G Tube route nightly . Active take 1 tablet by mouth once myesha y cyanocobalamin (vitamin B-12) 500 MCG tablet Take 1 (one) tablet (500 mcg total) by mouth daily . Active take 1 tablet by mouth once myesha y cyanocobalamin (Vitamin B-12) 1,000 mcg tablet Take 1 tablet (1,000 mcg) by mouth once daily. Active zinc gluconate 50 mg oral ta blet (3 sources) Start: 04-07-2021 End: 11-08-2021 Zinc Gluconate 50 MG tablet Problems Active Problems Problem Classification Problem Date Documented Date Episodic/Chronic Abdominal hernia (20 sources) Left inguinal hernia ; Translations: [Unilateral inguinal hernia, without obstruction or gangrene, not specified as recurrent] Onset: 4 12-17-2023 Episodic Acute bronchitis (2 sources) Acute bronchitis; Translations: [Acute bronchitis, unspecified] 12-25-2023 Episodic Acute myocardial infarction (3 sources) Myocardial infarction; Translations: [Non-ST elevation (NSTEMI) myocardial infarction] Onset: 5 07-30-2024 Chronic Anxiety disorders (20 sources) Mixed anxiety and depressive disorder; Translations: [Anxiety disorder, unspecified] Onset: 4 09-25-2023 Chronic Aortic; peripheral; and visceral artery aneurysms (20 sources) Abdominal aortic aneurysm; Translations: [Abdominal aneurysm without mention of rupture] Onset: 4 04-07-2021 Chronic Aspiration pneumonitis; food/vomitus (20 sources) Aspiration pneumonia; Translations: [Pneumonitis due to inhalation of food and vomit] Onset: 4 04-19-2023 Episodic Asthma (6 sources) Reactive airway disease; Translations: [Unspecified asthma, uncomplicated] Onset: 4 06-04-2023 Chronic Cancer of head and neck (20 sources) Malignant tumor of base of tongue; Translations: [Malignant neoplasm of base of tongue] Onset: Resolved: 5 08-16-2013 Chronic Cancer of head and neck (20 sources) History of malignant neoplasm of tongue; Translations: [Personal history of malignant neoplasm of tongue] Onset: 3 07-23-2022 Episodic Cancer; other and unspecified primary (4 sources) History of malignant neoplasm of head and/or neck; Translations: [Personal history of malignant neoplasm of other organs and systems] 03-21-2023 Episodic Cataract (20 sources) Bilateral pseudophakia; Translations: [Presence of intraocular lens] Onset: 6 Resolved: 7 04-06-2015 Chronic Chronic kidney disease (20 sources) Chronic kidney disease stage 1; Translations: [Chronic kidney disease, stage 1] 07-29-2016 Chronic Chronic kidney disease (2 sources) Chronic kidney disease 04-05-2021 Chronic obstructive pulmonary disease and bronchiectasis (20 sources) Chronic obstructive lung disease; Translations: [Chronic obstructive pulmonary disease, unspecified] Onset: 4 Resolved: 4 04-19-2023 Chronic Chronic obstructive pulmonary disease and bronchiectasis (1 source) Bronchitis; Translations: [Bronchitis, not specified as acute or chronic] Episodic Complications of surgical procedures or medical care (1 source) Complication associated with device; Translations: [Gastrostomy complication, unspecified] 07-08-2023 Episodic Diabetes mellitus without complication (20 sources) Abnormal glucose level; Translations: [Other abnormal glucose] Onset: 4 07-29-2016 Episodic Diseases of mouth; excluding dental (20 sources) Xerostomia following radiotherapy; Translations: [Disturbances of salivary secretion] Onset: 3 07-23-2022 Episodic Diseases of white blood cells (20 sources) Leukocytosis; Translations: [Elevated white blood cell count, unspecified] Onset: 4 03-03-2023 Chronic Disorders of lipid metabolism (20 sources) Hyperlipidemia; Translations: [Hyperlipidemia, unspecified] Onset: 4 07-29-2016 Chronic E Codes: Adverse effects of medical care (4 sources) Radiological procedure and radiotherapy as the cause of abnormal reaction of the patient, or of later complication, without mention of misadventure at the time of the procedure; Translations: [Radiological procedure and radiotherapy as the cause of abnormal reaction of the patient, or of later complication, without mention of misadventure at the time of the procedure] Onset: 3 Episodic Esophageal disorders (20 sources) Gastro-esophageal reflux disease without esophagitis; Translations: [Gastroesophageal reflux disease without esophagitis] Onset: 4 07-31-2016 Chronic Essential hypertension (20 sources) Benign essential hypertension; Translations: [Essential (primary) hypertension] Onset: 6 07-29-2016 Chronic Fluid and electrolyte disorders (20 sources) Hyponatremia; Translations: [Hypo-osmolality and hyponatremia] Onset: 4 11-22-2023 Episodic Gastrointestinal hemorrhage (5 sources) Acute lower gastrointestinal hemorrhage; Translations: [Hemorrhage of gastrointestinal tract, unspecified] 04-05-2021 Episodic Gastrointestinal hemorrhage (1 source) Gastrointestinal hemorrhage 04-05-2021 Headache; including migraine (20 sources) Migraine without aura, not refractory ; Translations: [Migraine without aura, not intractable, without status migrainosus] Onset: 4 07-23-2022 Chronic Hyperplasia of prostate (20 sources) Benign prostatic hyperplasia; Translations: [Benign prostatic hypertrophy without outflow obstruction] Onset: 7 07-31-2016 Chronic Hypertension with complications and secondary hypertension (2 sources) Hypertensive heart disease without heart failure 04-05-2021 Chronic Intestinal infection (4 sources) Infectious colitis; Translations: [Infectious colitis, enteritis, and gastroenteritis] 04-05-2021 Episodic Comment on above: INFECTIOUS COLITIS Malaise and fatigue (20 sources) Fatigue; Translations: [Other fatigue] Onset: 4 07-29-2016 Episodic Mood disorders (20 sources) Mood disorders; Translations: [Depression, unspecified] Onset: 4 Resolved: 5 09-25-2023 Mycoses (4 sources) Candidiasis of mouth; Translations: [Candidal stomatitis] Onset: 5 07-05-2024 Episodic Noninfectious gastroenteritis (1 source) Hemorrhagic colitis; Translations: [Other and unspecified noninfectious gastroenteritis and colitis] 04-05-2021 Episodic Nonspecific chest pain (2 sources) Chest pain; Translations: [Chest pain, unspecified] 12-25-2023 Episodic Nutritional deficiencies (20 sources) Deficiency of macronutrients; Translations: [Unspecified severe protein-calorie malnutrition] Onset: 4 Resolved: 4 02-21-2023 Chronic Osteoarthritis (20 sources) Osteoarthritis; Translations: [Arthritis] Onset: 7 07-29-2016 Chronic Other aftercare (5 sources) Post-discharge follow-up; Translations: [Encounter for follow-up examination after completed treatment for conditions other than malignant neoplasm] 06-02-2023 Episodic Other aftercare (1 source) Encounter for follow-up examination after completed treatment for conditions other than malignant neoplasm; Translations: [Hospital discharge follow-up] Onset: 5 Episodic Other circulatory disease (6 sources) Other specified symptoms and signs involving the circulatory and respiratory systems; Translations: [Other specified symptoms and signs involving the circulatory and respiratory systems] Onset: 5 Episodic Other connective tissue disease (20 sources) Enthesopathy; Translations: [Enthesopathy, unspecified] 07-29-2016 Episodic Other diseases of kidney and ureters (1 source) Cyst of kidney; Translations: [Cyst of kidney, acquired] 07-23-2023 Episodic Other diseases of veins and lymphatics (2 sources) Venous insufficiency (chronic) (peripheral); Translations: [Venous insufficiency (chronic) (peripheral)] Onset: 4 Episodic Other endocrine disorders (20 sources) Testicular hypofunction; Translations: [Testicular hypofunction] 07-29-2016 Chronic Other eye disorders (20 sources) Bilateral vitreous floaters; Translations: [Other vitreous opacities, bilateral] Onset: 6 03-14-2015 Chronic Other eye disorders (2 sources) Meibomian gland dysfunction of bilateral eyes; Translations: [Meibomian gland dysfunction right eye, upper and lower eyelids] 09-29-2024 Episodic Other gastrointestinal disorders (20 sources) History of placement of gastrostomy tube; Translations: [Gastrostomy status] Onset: 4 Resolved: 4 04-08-2023 Chronic Other gastrointestinal disorders (13 sources) Gastrostomy status; Translations: [Gastrostomy status] Onset: 4 Chronic Other gastrointestinal disorders (1 source) PEG externally removable; Translations: [Gastrostomy status] 07-04-2024 Chronic Other gastrointestinal disorders (1 source) Disorder of stoma; Translations: [Disease of digestive system, unspecified] 05-22-2024 Episodic Other gastrointestinal disorders (1 source) Gastrointestinal tube in situ; Translations: [Encounter for fitting and adjustment of other gastrointestinal appliance and device] 05-22-2024 Episodic Other gastrointestinal disorders (8 sources) Dysphagia, pharyngoesophageal phase; Translations: [Dysphagia, pharyngoesophageal phase] Onset: 3 Episodic Other gastrointestinal disorders (2 sources) Disease of digestive system, unspecified; Translations: [Disease of digestive system, unspecified] Onset: 5 Episodic Other gastrointestinal disorders (2 sources) Encounter for fitting and adjustment of other gastrointestinal appliance and device; Translations: [Encounter for fitting and adjustment of other gastrointestinal appliance and device] Onset: 5 Episodic Other gastrointestinal disorders (2 sources) Dysphagia, oropharyngeal phase; Translations: [Dysphagia, oropharyngeal phase] Onset: 3 Episodic Other hematologic conditions (20 sources) Secondary polycythemia; Translations: [Secondary polycythemia] Onset: 5 Episodic Other hereditary and degenerative nervous system conditions (1 source) Impaired cognition; Translations: [Mild cognitive impairment, so stated] 11-17-2024 Chronic Other hereditary and degenerative nervous system conditions (4 sources) Mild cognitive impairment, so stated; Translations: [Mild cognitive impairment of uncertain or unknown etiology] Onset: 5 Chronic Other injuries and conditions due to external causes (20 sources) Aspiration into respiratory tract; Translations: [Unspecified foreign body in respiratory tract, part unspecified causing other injury, initial encounter] Onset: 3 12-06-2022 Episodic Other injuries and conditions due to external causes (1 source) At low risk for fall; Translations: [History of falling] 10-23-2023 Episodic Other injuries and conditions due to external causes (1 source) Unspecified foreign body in respiratory tract, part unspecified causing other injury, subsequent encounter; Translations: [Aspiration into airway, subsequent encounter] Onset: 5 Episodic Other liver diseases (20 sources) Steatosis of liver; Translations: [Fatty (change of) liver, not elsewhere classified] 09-29-2013 Chronic Other lower respiratory disease (2 sources) Interstitial pulmonary disease, unspecified; Translations: [Interstitial pulmonary disease, unspecified] Onset: 4 Chronic Other lower respiratory disease (20 sources) Cough; Translations: [Cough] Onset: 4 03-03-2023 Episodic Other lower respiratory disease (3 sources) Nodule of lung; Translations: [Solitary pulmonary nodule] 12-31-2023 Episodic Other lower respiratory disease (6 sources) Other nonspecific abnormal finding of lung field; Translations: [Other nonspecific abnormal finding of lung field] Onset: 9 Episodic Other lower respiratory disease (2 sources) Hypoxemia; Translations: [Hypoxemia] Onset: 5 07-04-2024 Episodic Other lower respiratory disease (1 source) Lower respiratory tract infection; Translations: [Unspecified acute lower respiratory infection] 07-06-2024 Episodic Other lower respiratory disease (1 source) Hypoxemia; Translations: [Hypoxemia] Onset: 5 Episodic Other lower respiratory disease (2 sources) Unspecified acute lower respiratory infection; Translations: [Unspecified acute lower respiratory infection] Onset: 5 Episodic Other lower respiratory disease (2 sources) Personal history of pneumonia (recurrent); Translations: [Personal history of pneumonia (recurrent)] Onset: 5 Episodic Other lower respiratory disease (2 sources) Other disorders of lung; Translations: [Other disorders of lung] Onset: 4 Episodic Other male genital disorders (3 sources) Impotence of organic origin; Translations: [Impotence of organic origin] 07-29-2016 Chronic Other male genital disorders (20 sources) Secondary erectile dysfunction; Translations: [Male erectile dysfunction, unspecified] 07-29-2016 Chronic Other nervous system disorders (1 source) Impaired cognition 11-17-2024 Episodic Other nutritional; endocrine; and metabolic disorders (20 sources) Obesity; Translations: [Obesity, unspecified] 07-29-2016 Chronic Other nutritional; endocrine; and metabolic disorders (1 source) Abnormal weight loss; Translations: [Abnormal weight loss] 02-18-2023 Episodic Other screening for suspected conditions (not mental disorders or infectious disease) (20 sources) Patient encounter status; Translations: [Encounter for screening for malignant neoplasm of prostate] Onset: 4 02-21-2023 Episodic Other upper respiratory infections (20 sources) Posterior rhinorrhea; Translations: [Postnasal drip] Onset: 4 11-22-2023 Episodic Pneumonia (except that caused by tuberculosis or sexually transmitted disease) (20 sources) Pneumonia; Translations: [Pneumonia, unspecified organism] Onset: 4 Resolved: 4 03-03-2023 Episodic Regional enteritis and ulcerative colitis (3 sources) Crohn's disease of colon; Translations: [Crohn's disease of large intestine with other complication] Onset: 5 06-01-2024 Chronic Residual codes; unclassified (1 source) H/O: radiation exposure; Translations: [Personal history of irradiation] Episodic Residual codes; unclassified (5 sources) Localized edema; Translations: [Localized edema] Onset: 5 08-07-2023 Episodic Residual codes; unclassified (5 sources) History of placement of gastrostomy tube 05-26-2024 Episodic Residual codes; unclassified (8 sources) Amnesia; Translations: [Other amnesia] Onset: 5 11-16-2024 Episodic Residual codes; unclassified (4 sources) Sleep disorder, unspecified; Translations: [Sleep disorder, unspecified] Onset: Episodic Residual codes; unclassified (4 sources) Other amnesia; Translations: [Other amnesia] Onset: 5 Episodic Respiratory failure; insufficiency; arrest (adult) (20 sources) Chronic hypoxemic respiratory failure; Translations: [Chronic respiratory failure with hypoxia] Onset: 4 12-31-2023 Chronic Respiratory failure; insufficiency; arrest (adult) (20 sources) Acute respiratory failure; Translations: [Acute respiratory failure with hypoxia] Onset: 4 Resolved: 5 05-24-2023 Episodic Retinal detachments; defects; vascular occlusion; and retinopathy (20 sources) Epiretinal membrane of left eye; Translations: [Puckering of macula, left eye] Onset: 8 06-02-2017 Chronic Septicemia (except in labor) (10 sources) Septic shock; Translations: [Sepsis, unspecified organism] Onset: 5 11-17-2024 Episodic Shock (2 sources) Severe sepsis with septic shock; Translations: [Severe sepsis with septic shock] Onset: 5 Episodic Unclassified (2 sources) Primary hypertension 04-05-2021 Unclassified (1 source) COVID-19 02-17-2022 Unclassified (1 source) Acute hemorrhagic colitis 04-05-2021 Unclassified (1 source) Viremia due to severe acute respiratory syndrome coronavirus 2 (SARS-CoV-2) 04-05-2021 Unclassified (2 sources) Single subsegmental pulmonary embolism without acute cor pulmonale; Translations: [Single subsegmental thrombotic pulmonary embolism without acute cor pulmonale] Onset: 4 Unclassified (2 sources) Feeding Tube; Translations: [Feeding Tube] Onset: 4 Unclassified (2 sources) Cough, unspecified; Translations: [Cough, unspecified] Onset: 5 Unclassified (2 sources) [facility] Onset: 4 Viral infection (3 sources) Disease caused by 2019-nCoV; Translations: [Other specified viral infection] 04-05-2021 Episodic Past or Other Problems Problem Classification Problem Date Documented Date Episodic/Chronic Blindness and vision defects (20 sources) Astigmatism of left eye; Translations: [Unspecified astigmatism, left eye] Onset: 6 03-14-2015 Episodic Complication of device; implant or graft (2 sources) Unspecified complication of genitourinary prosthetic device, implant and graft, initial encounter; Translations: [Unspecified complication of genitourinary prosthetic device, implant and graft, initial encounter] Onset: 5 Episodic Fever of unknown origin (20 sources) Fever; Translations: [Fever, unspecified] Onset: 4 03-03-2023 Episodic Genitourinary symptoms and ill-defined conditions (6 sources) Retention of urine; Translations: [Retention of urine, unspecified] Onset: 4 12-25-2023 Episodic Inflammation; infection of eye (except that caused by tuberculosis or sexually transmitteddisease) (12 sources) Acute conjunctivitis of left eye; Translations: [Unspecified acute conjunctivitis, left eye] Onset: 5 09-14-2024 Episodic Nausea and vomiting (20 sources) Retching; Translations: [Vomiting, unspecified] Onset: 4 Resolved: 5 03-03-2023 Episodic Other circulatory disease (18 sources) Low blood pressure; Translations: [Other hypotension] Onset: 4 05-09-2023 Episodic Other circulatory disease (11 sources) Respiratory crackles; Translations: [Other specified symptoms and signs involving the circulatory and respiratory systems] Onset: 5 09-14-2024 Episodic Other diseases of veins and lymphatics (20 sources) Vascular insufficiency; Translations: [Venous insufficiency (chronic) (peripheral)] Onset: 4 12-18-2023 Episodic Other eye disorders (20 sources) Tear film insufficiency; Translations: [Dry eye syndrome of unspecified lacrimal gland] Onset: 7 06-05-2016 Episodic Other eye disorders (20 sources) Dry eyes; Translations: [Dry eye syndrome of unspecified lacrimal gland] Onset: 6 Resolved: 7 06-05-2016 Episodic Other eye disorders (1 source) Meibomian gland dysfunction right eye, upper and lower eyelids; Translations: [Meibomian gland dysfunction (MGD) of upper and lower lids of both eyes] Onset: 5 Episodic Other eye disorders (1 source) Meibomian gland dysfunction left eye, upper and lower eyelids; Translations: [Meibomian gland dysfunction (MGD) of upper and lower lids of both eyes] Onset: 5 Episodic Other eye disorders (1 source) Dry eye syndrome of bilateral lacrimal glands; Translations: [Dry eye syndrome of both eyes] Onset: 7 Episodic Other gastrointestinal disorders (20 sources) Dysphagia; Translations: [Dysphagia, pharyngoesophageal phase] Onset: 3 07-23-2022 Episodic Other gastrointestinal disorders (20 sources) Oropharyngeal dysphagia; Translations: [Dysphagia, oropharyngeal phase] Onset: 3 08-09-2022 Episodic Other gastrointestinal disorders (20 sources) Constipation; Translations: [Constipation, unspecified] Onset: 4 12-17-2023 Episodic Other hematologic conditions (20 sources) Erythrocytosis; Translations: [Secondary polycythemia] Onset: 5 09-15-2014 Episodic Other hematologic conditions (2 sources) Secondary polycythemia; Translations: [Erythrocytosis] Onset: 5 Episodic Other injuries and conditions due to external causes (20 sources) Aspiration into lower respiratory tract; Translations: [Unspecified foreign body in other parts of respiratory tract causing asphyxiation, subsequent encounter] Onset: 3 06-06-2023 Episodic Other injuries and conditions due to external causes (1 source) Unspecified foreign body in other parts of respiratory tract causing asphyxiation, subsequent encounter; Translations: [Aspiration into lower respiratory tract, subsequent encounter] Onset: 4 Episodic Other liver diseases (18 sources) Alkaline phosphatase raised; Translations: [Abnormal levels of other serum enzymes] Onset: 4 05-09-2023 Episodic Other lower respiratory disease (18 sources) Interstitial lung disease; Translations: [Interstitial pulmonary disease, unspecified] Onset: 4 Resolved: 4 06-04-2023 Chronic Other lower respiratory disease (20 sources) Multiple nodules of lung; Translations: [Other nonspecific abnormal finding of lung field] Onset: 9 01-15-2019 Episodic Other lower respiratory disease (20 sources) Hypoxia; Translations: [Hypoxemia] Onset: 4 Resolved: 4 05-09-2023 Episodic Other lower respiratory disease (15 sources) Hemoptysis; Translations: [Hemoptysis] Onset: 4 05-24-2023 Episodic Other lower respiratory disease (20 sources) Lower respiratory tract finding; Translations: [Other disorders of lung] Onset: 4 01-13-2024 Episodic Other lower respiratory disease (4 sources) Solitary pulmonary nodule; Translations: [Solitary pulmonary nodule] Onset: 4 Episodic Other lower respiratory disease (20 sources) History of aspiration pneumonia; Translations: [Personal history of pneumonia (recurrent)] Onset: 5 06-20-2024 Episodic Other male genital disorders (20 sources) H/O: male genital disorder; Translations: [Personal history of other diseases of male genital organs] Onset: 6 03-14-2015 Episodic Other nutritional; endocrine; and metabolic disorders (20 sources) Adult failure to thrive syndrome; Translations: [Adult failure to thrive] Onset: 4 04-07-2023 Episodic Pleurisy; pneumothorax; pulmonary collapse (20 sources) Other specified pleural conditions; Translations: [Swelling, mass, or lump in chest] Onset: 4 06-15-2023 Episodic Pulmonary heart disease (20 sources) Pulmonary embolism; Translations: [Other pulmonary embolism without acute cor pulmonale] Onset: 4 12-22-2023 Episodic Residual codes; unclassified (20 sources) Edema of lower extremity; Translations: [Localized edema] Onset: 4 Resolved: 4 07-29-2016 Episodic Residual codes; unclassified (20 sources) Bilateral lower limb edema; Translations: [Localized edema] Onset: 4 07-29-2016 Episodic Residual codes; unclassified (19 sources) Noncompliance with treatment; Translations: [Noncompliance] Onset: 4 04-19-2023 Episodic Residual codes; unclassified (20 sources) Difficulty sleeping ; Translations: [Sleep disorder, unspecified] Onset: 4 11-22-2023 Episodic Residual codes; unclassified (2 sources) Localized edema; Translations: [Localized edema] Onset: 5 Episodic Screening and history of mental health and substance abuse codes (5 sources) Ex-smoker; Translations: [Personal history of nicotine dependence] Onset: 5 Episodic Unclassified (1 source) Lipoma of left lower extremity Unclassified (1 source) BLEEDING RECTALY 04-05-2021 Comment on above: BLEEDING RECTALY Unclassified (20 sources) Onset: 4 Resolved: 4 12-31-2023 Unclassified (1 source) Mass of pleura 04-01-2024 Unclassified (1 source) Lower respiratory tract finding 11-22-2024 Unclassified (2 sources) Cough, unspecified; Translations: [Cough, unspecified] Onset: 5 Results Test Name Value Interpretation Reference Range Facility ED Prov Noteon 12-24-2024 ED Prov Note HPI: 12/24/2024, Time: @NOWNR@ Amy Sun is a 74 y.o. male presenting to the ED for urinary retention, beginning since this morning ago. The complaint has been constant, moderate in severity, and worsened by nothing. No alleviating factors. No fever or chills and no new medications ROS: Pertinent positives and negatives are stated within HPI, all other systems reviewed and are negative. - PAST HISTORY - Past Medical History: @[facility]@ Past Surgical History: has a past surgical history that includes Neck surgery (2008); Vasectomy; Laparoscopic inguinal hernia repair (1987); CT Colonoscopy (03/25/2022); PEG tube placement (04/04/2023); Cataract extraction bilateral w/ anterior vitrectomy; Cataract extraction bilateral w/ anterior vitrectomy (Bilateral); and Abdominal surgery. Social History: reports that he quit smoking about 16 years ago. His smoking use included cigarettes. He started smoking about 64 years ago. He has been exposed to tobacco smoke. He has never used smokeless tobacco. He reports that he does not currently use alcohol. He reports that he does not currently use drugs. Family History: family history includes Coronary artery disease in his brother and father; Diabetes in his sister; Heart disease in his father; Stroke in his father. The patient's home medications have been reviewed. Allergies: Budesonide, Revefenacin, and Ipratropium-albuterol ------ RESULTS ----- All laboratory and radiology results have been personally reviewed by myself LABS: Results for orders placed or performed during the hospital encounter of 12/15/24 EKG 12-lead Collection Time: 12/15/24 8:14 PM Result Value Ref Range Ventricular Rate 81 BPM Atrial Rate 81 BPM P-R Interval 162 ms QRS Duration 80 ms Q-T Interval 384 ms QTC Calculation (Bezet) 446 ms P Gos[place] 54 degrees R [place] 41 degrees T [place] 63 degrees Lactic Acid, Plasma Collection Time: 12/15/24 8:18 PM Result Value Ref Range Lactic Acid 3.5 (H) 0.6 - 2.0 mmol/L Lavender Top Collection Time: 12/15/24 8:18 PM Result Value Ref Range Extra Tube Hold for add-ons. Mint Green Top Collection Time: 12/15/24 8:18 PM Result Value Ref Range Extra Tube Hold for add-ons. Light Blue Top Collection Time: 12/15/24 8:18 PM Result Value Ref Range Extra Tube Hold for add-ons. Comprehensive Metabolic Panel Collection Time: 12/15/24 8:18 PM Result Value Ref Range Sodium 147 (H) 135 - 145 mmol/L Potassium 3.8 3.5 - 5.1 mmol/L Chloride 105 98 - 108 mmol/L Bicarbonate 28 21 - 32 mmol/L Anion Gap 18 10 - 20 mmol/L Glucose 126 (H) 65 - 99 mg/dL BUN 31 (H) 8 - 25 mg/dL Creatinine 1.03 0.80 - 1.30 mg/dL eGFR 76 >=60 mL/min/1.73 m2 BUN/Creatinine Ratio 30.1 (H) 10.0 - 20.0 Total Protein 7.3 6.0 - 8.0 g/dL Albumin 4.1 3.2 - 5.2 g/dL Calcium 9.5 8.4 - 10.2 mg/dL Alkaline Phosphatase 125 40 - 150 U/L AST 30 0-50 U/L U/L ALT 30 0-50 U/L U/L Total Bilirubin 0.6 0.0 - 1.3 mg/dL Troponin (Once) Collection Time: 12/15/24 8:18 PM Result Value Ref Range Troponin T 26 (CH) <=22 ng/L Troponin T Interpretation Possible acute cardiac injury. CBC Auto Differential Collection Time: 12/15/24 8:18 PM Result Value Ref Range WBC 23.95 (H) 4.50 - 11.00 K/mcL RBC 4.68 4.50 - 5.90 M/mcL Hemoglobin 14.0 13.5 - 17.5 g/dL Hematocrit 44.3 41.0 - 53.0 % MCV 94.7 80.0 - 100.0 fL MCH 29.9 26.0 - 34.0 pg MCHC 31.6 31.0 - 37.0 g/dL Platelets 201 150 - 400 K/mcL RDW - CV 14.0 11.6 - 14.8 % MPV 11.6 9.4 - 12.4 fL Neutrophils 93.1 % Lymphocytes 1.7 % Monocytes 4.1 % Eosinophils 0.2 % Basophils 0.3 % IG Percent 0.60 % Neutrophils Abs 22.31 (H) 1.70 - 7.00 K/mcL Lymphocytes Abs 0.40 (L) 0.90 - 4.00 K/mcL Monocytes Abs 0.98 (H) 0.30 - 0.90 K/mcL Eosinophils Abs 0.04 0.00 - 0.50 K/mcL Basophils Abs 0.08 0.00 - 0.30 K/mcL IG Absolute 0.14 0.00 - 0.30 K/mcL Nucleated RBC 0.0 % Nucleated RBC Abs 0.00 0.00 - 0.00 K/mcL Blood Culture #1 Collection Time: 12/15/24 8:19 PM Specimen: Blood, Peripheral Result Value Ref Range Culture No Growth after 5 days Blood Culture #2 Collection Time: 12/15/24 8:21 PM Specimen: Blood, Peripheral Result Value Ref Range Culture No Growth after 5 days POC Venous Blood Gas Panel-Pulm Collection Time: 12/15/24 8:28 PM Result Value Ref Range pH, Venous 7.42 7.32 - 7.42 pCO2, Darren 48.6 41.0 - 51.0 mm Hg pO2, Darren 39 25 - 40 mm Hg Base Excess, Darren 5.7 (H) -2.0 - 2.0 mmol/L HCO3, Darren 31.4 (H) 24.0 - 28.0 mmol/L Ionized Calcium 4.7 4.5 - 5.3 mg/dL Lactic Acid 3.0 (H) 0.6 - 2.0 mmol/L Hemoglobin, Blood Gas 14.4 13.5 - 17.5 g/dL Hematocrit, Calculated 44.3 41.0 - 53.0 % O2 Sat, Darren 73.3 (H) 40.0 - 70.0 % O2 Hb 71.3 No established reference range % Carboxyhemoglobin 2.3 (H) (more content not included)... [facility] MR BRAIN WITH AND WITHOUT CO NTRASTon 12-21-2024 MR BRAIN WITH AND WITHOUT CONTRAST EXAMINATION: MR BRAIN WITH AND WITHOUT CONTRAST HISTORY: Mild cognitive impairment COMPARISON: None. TECHNIQUE: Multiplanar multisequence MRI of the brain was performed using a standard protocol. CONTRAST: The type and volume of contrast administered are documented in the medical record. FINDINGS: Motion artifact limits the examination. Postoperative changes: None. Infarctions/vascular: No abnormal restricted diffusion of water throughout the brain to suggest acute infarctions.Multiple focal and small patchy areas of signal abnormality scattered throughout the supratentorial white matter. Although nonspecific, these findings are commonly associated with chronic small vessel ischemic disease. Masses: No space occupying or abnormally enhancing intracranial lesions. Ventricles/CSF spaces: The ventricles, basal cisterns, and sulci are mildly enlarged consistent mild parenchymal atrophy. No midline shift or mass effect. Hemorrhages: No intra-axial or extra-axial hemorrhages. Musculoskeletal: The bone marrow signal is normal throughout the skull. Paranasal sinuses: Tiny retention cyst within the right maxillary sinus. The mastoid air cells are clear. Mastoid air cells: Minimal fluid within the mastoid air cells on the left. Orbits: Normal appearance of the orbits. Additional: None. IMPRESSION: 1. The examination is limited by motion artifact. 2. No MRI evidence of intracranial mass lesions, hemorrhages, or acute infarctions. 3. Multiple focal and small patchy areas of signal abnormality throughout the supratentorial white matter are nonspecific but commonly associated chronic small vessel ischemic disease. 4. Mild generalized cerebral and cerebellar atrophy. Workstation ID: [id number] Dictated by: ANGELA MARTINEZ on FriDec 22, 2024 3:58:29 AM EST Transcribed by: ANGELA MARTINEZ on FriDec 22, 2024 3:58:29 AM EST Finalized by: ANGELA MARTINEZ on FriDec 22, 2024 3:58:29 AM EST Normal [facility] Comment on above: Order Comment: Injur y/Trauma or Illness?:Illness/Other How long have you had these symptoms (acute/chronic)?:Unknown Reason for exam?:memory problems over the last 2 years: hx of tongue cancer: Type of Exam?:Unknown Additional signs and symptoms?:n [facility] AMY SUN ([id number]) 1950 M Date Time Provider Department 12/20/24 SARAH FERNANDEZ PULMWS During your visit today, we recorded the following information about you: Ayana Eng MA 12/20/2024 9:18 AM Signed Spouse calling to report that pt was in [facility] again with sepsis. Sputum culture grew MRSA and E coli. They were told to make a hospital follow up and she is not sure if that needs to be with PCP or with PULM. She said that PCP will probably just refer to Pulm. Last visit with Sarah Fernandez 12/08. [phone] Please review and advise. JUAN DANIEL Zaragoza Kathleen, LPN 12/20/2024 9:45 AM Signed Spoke with spouse. Noted that patient was discharged with 5 day course of cefpodoxime to take in addition to prescribed linezolid. Scheduled with EB on 12/31. SIERRA Kohler Lori 12/28/2024 2:29 PM Signed Patient's Miriam called to confirm appointment on 12/31 w/ Dr Adler Also she wanted to give an update that he is doing okay but still no energy Allergies As of Date: 12/20/2024 Noted Allergy Reaction BUDESONIDE 07/23/2024 10 - Anaphylaxis Comments: Throat constriction REVEFENACIN 07/23/2024 10 - Anaphylaxis Comments: Throat reconstruction IPRATROPIUM-ALBUTEROL 07/23/2024 5 - Intolerance Comments: Right side of face gets numb Date Reviewed: 12/08/2024 Reviewed by: Sarah Fernandez, [employer]CTOR.PROJECT FACILITATOR - Fully Assessed Reason for Visit: Patient Update [1234] Hospital Follow Up [177] Prescriptions as of 12/28/2024 - guaiFENesin (MUCINEX) 600 mg 12 hr tablet 1,200 mg two times a day as needed. - lactobacillus rhamnosus (CULTURELLE) 10 billion cell capsule Take 1 capsule by mouth once daily. - roflumilast (DALIRESP) 500 mcg tab Take 1 tablet by mouth once daily. - erythromycin (ROMYCIN) 5 mg/gram (0.5 %) ophthalmic ointment Use 1 application in both eyes two times a week. - doxazosin (CARDURA) 4 mg tablet Take 4 mg by mouth daily at bedtime. - finasteride (PROSCAR) 5 mg tablet Take 5 mg by mouth once daily. - SUMAtriptan (IMITREX) 50 mg tablet Take 50 mg by mouth every 2 hours as needed. - tiotropium (SPIRIVA) 18 mcg inhalation capsule Inhale 18 mcg as instructed once daily. - aspirin, enteric coated (ASPIRIN, ENTERIC COATED) 81 mg EC tablet Take 81 mg by mouth once daily. - cyanocobalamin (VITAMIN B-12) 500 mcg tablet Take 500 mcg by mouth once daily. - fluticasone (FLONASE) 50 mcg/actuation nasal spray Use 2 sprays in each nostril once daily. - umeclidinium-vilantero l (ANORO ELLIPTA) 62.5-25 mcg/actuation inhaler Inhale 1 inhalation as instructed once daily. - apixaban (ELIQUIS) 5 mg tab(s) Take 5 mg by mouth two times a day. - famotidine (PEPCID) 20 mg tablet Take 20 mg by mouth. - nut tx, lact-reduced, iron (BOOST VHC) 0.09-2.25 gram-kcal/mL liqd 52 mL by FEEDING TUBE route continuous. [place] with infinity feeding pump. Flush with an additional 33oz of water daily (divided). - iv contrast (will be provided with radiology test) CT Chest W -Inject, intravenously, once for 1 dose.No IV access, insert saline lock prior to the beginning of sedation, infusion, injection of imaging exam. Discontinue saline lock post exam. If Pt. has a central line or IVAD, may access for administration according to line specific nursing protocol. Once exam is complete flush line and de-access according to line specific nursing protocol in the CT contrast administration guidelines link. - iv contrast (will be provided with radiology test) CT ABD/PEL -Inject, intravenously, once for 1 dose.No IV access, insert saline lock prior to the beginning of sedation, infusion, injection of imaging exam. Discontinue saline lock post exam. If Pt. has a central line or IVAD, may access for administration according to line specific nursing protocol. Once exam is complete flush line and de-access according to line specific nursing protocol in the CT contrast administration guidelines link. - enteric contrast (will be provided with radiology test) For CT ABD/PEL W IVCON Routine order Administer, As Directed One Time Only, via Oral, Rectal, both Oral and Rectal, Enteric Tube, Stoma or Indwelling Catheter, Enteric Contrast as designated per enteric contrast guidelines - nutritional supplement-fiber (COMPLEAT 1.5) 0.07 gram-1.5 kcal/mL liqd 80ml/hr of Compleat 1.5 continuously for 24 hours. Use 1 carton of Benecalorie daily. Flush with 200ml water four times per day. - sertraline (ZOLOFT) 25 mg tablet Take 1 tablet by mouth once daily. 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 Normal [facility] [place] BASIC METABOLIC PANELon 11-0 Anion gap [Moles/Vol] 13 mmol/L Normal 10-20 [facility] Comment on above: Order Comment: Injur y/Trauma or Illness?:Illness/Other How long have you had these symptoms (acute/chronic)?:Acute Reason for exam?:Central line placement History of cancer?:tongue cancer Surgeries, chemotherapy, or radiation?:yes Type of Exam?:Initial Additional signs and symptoms?:. Performed By: #### [id number] ####[facility] [address] [place], [place] [address] Gonsalo Tello M.D. [id number] Calcium [Mass/Vol] 9.3 mg/dL Normal 8.4-10.2 [facility] Comment on above: Order Comment: Injur y/Trauma or Illness?:Illness/Other How long have you had these symptoms (acute/chronic)?:Acute Reason for exam?:Central line placement History of cancer?:tongue cancer Surgeries, chemotherapy, or radiation?:yes Type of Exam?:Initial Additional signs and symptoms?:. Performed By: #### [id number] #### LAB [address] [place] [id number] Gonsalo Tello M.D. [id number] Chloride [Moles/Vol] 107 mmol/L Normal 98-108 [facility] Comment on above: Order Comment: Injur y/Trauma or Illness?:Illness/Other How long have you had these symptoms (acute/chronic)?:Acute Reason for exam?:Central line placement History of cancer?:tongue cancer Surgeries, chemotherapy, or radiation?:yes Type of Exam?:Initial Additional signs and symptoms?:. Performed By: #### [id number] #### LAB [address] [place] [address] Gonsalo Tello M.D. [id number] Creatinine [Mass/Vol] 0.59 mg/dL Low 0.80-1.30 [facility] Comment on above: Order Comment: Injur y/Trauma or Illness?:Illness/Other How long have you had these symptoms (acute/chronic)?:Acute Reason for exam?:Central line placement History of cancer?:tongue cancer Surgeries, chemotherapy, or radiation?:yes Type of Exam?:Initial Additional signs and symptoms?:. Performed By: #### [id number] #### LAB [address] [place] [address] Gonsalo Tello M.D. [id number] EGFR 102 mL/min/1.73 m2 Normal >=60 [facility] Comment on above: Order Comment: Injur y/Trauma or Illness?:Illness/Other How long have you had these symptoms (acute/chronic)?:Acute Reason for exam?:Central line placement History of cancer?:tongue cancer Surgeries, chemotherapy, or radiation?:yes Type of Exam?:Initial Additional signs and symptoms?:. Result Comment: Marv mated GFR was calculated using the 2020 CKD-EPI creatinine equation. Performed By: #### 4 6136 #### LAB [address] [place] [address] Gonsalo Tello M.D. [id number] Glucose [Mass/Vol] 110 mg/dL High 65-99 [facility] Comment on above: Order Comment: Injur y/Trauma or Illness?:Illness/Other How long have you had these symptoms (acute/chronic)?:Acute Reason for exam?:Central line placement History of cancer?:tongue cancer Surgeries, chemotherapy, or radiation?:yes Type of Exam?:Initial Additional signs and symptoms?:. Performed By: #### 4 6124 #### LAB [address] [place] [address] Gonsalo Tello M.D. [id number] HCO3 (Bld) [Moles/Vol] 30 mmol/L Normal 21-32 [facility] Comment on above: Order Comment: Injur y/Trauma or Illness?:Illness/Other How long have you had these symptoms (acute/chronic)?:Acute Reason for exam?:Central line placement History of cancer?:tongue cancer Surgeries, chemotherapy, or radiation?:yes Type of Exam?:Initial Additional signs and symptoms?:. Performed By: #### 4 6124 #### LAB [address] [place] [address] Gonsalo Tello M.D. [id number] Potassium [Moles/Vol] 4.2 mmol/L Normal 3.5-5.1 [facility] Comment on above: Order Comment: Injur y/Trauma or Illness?:Illness/Other How long have you had these symptoms (acute/chronic)?:Acute Reason for exam?:Central line placement History of cancer?:tongue cancer Surgeries, chemotherapy, or radiation?:yes Type of Exam?:Initial Additional signs and symptoms?:. Performed By: #### 4 6124 ####[facility] LAB [address] [place] [address] Gonsalo Tello M.D. [id number] Sodium [Moles/Vol] 146 mmol/L High 135-145 [facility] Comment on above: Order Comment: Injur y/Trauma or Illness?:Illness/Other How long have you had these symptoms (acute/chronic)?:Acute Reason for exam?:Central line placement History of cancer?:tongue cancer Surgeries, chemotherapy, or radiation?:yes Type of Exam?:Initial Additional signs and symptoms?:. Performed By: #### 4 6124 #### LAB [address] [place], [place] [address] Gonsalo Tello M.D. [id number] Urea nitrogen [Mass/Vol] 27 mg/dL High 8-25 [facility] Comment on above: Order Comment: Injur y/Trauma or Illness?:Illness/Other How long have you had these symptoms (acute/chronic)?:Acute Reason for exam?:Central line placement History of cancer?:tongue cancer Surgeries, chemotherapy, or radiation?:yes Type of Exam?:Initial Additional signs and symptoms?:. Performed By: #### 4 6124 #### LAB [address] [place] [id number] Gonsalo Tello M.D. [id number] Urea nitrogen/Creatinine [Mass ratio] 45.8 mg/mg High 10.0-20.0 [facility] Comment on above: Order Comment: Injur y/Trauma or Illness?:Illness/Other How long have you had these symptoms (acute/chronic)?:Acute Reason for exam?:Central line placement History of cancer?:tongue cancer Surgeries, chemotherapy, or radiation?:yes Type of Exam?:Initial Additional signs and symptoms?:. Performed By: #### 4 6124 #### LAB [address] [place], [place] [address] Gonsalo Tello M.D. [id number] Basic metabolic 2000 panelon 12-18-2024 Anion gap [Moles/Vol] 13 mmol/L 10 - 2 0 mmol/L [facility] Calcium [Mass/Vol] 9.3 mg/dL 8.4 - 10. 2 mg/dL [facility] Chloride [Moles/Vol] 107 mmol/L 98 - 10 8 mmol/L [facility] Creatinine [Mass/Vol] 0.59 mg/dL Low 0.80 - 1.30 mg/dL [facility] GFR/1.73 sq M.predicted CKD-EPI (S/P/Bld) [Vol rate/Area] 102 - PINF [facility] Comment on above: Estimated GFR was ca lculated using the 2020 CKD-EPI creatinine equation. Glucose [Mass/Vol] 110 mg/dL High 65 - 99 mg/dL [facility] HCO3 [Moles/Vol] 30 mmol/L 21 - 32 mmol/L [facility] Interpretation and review of laboratory results Abnormal [facility] Potassium [Moles/Vol] 4.2 mmol/L 3.5 - 5.1 mmol/L [facility] Sodium [Moles/Vol] 146 mmol/L High 135 - 145 mmol/L [facility] Urea nitrogen [Mass/Vol] 27 mg/dL High 8 - 25 mg/dL [facility] Urea nitrogen/Creatinine [Mass ratio] 45.8 mg/mg High 10.0 - 20.0 [facility] has implemented the eGFR calculation approach that does not have a coefficient for race that conforms to the NKF-ASN Task Force Recommendations. [facility] CBC Auto Differentialon Basophils (Bld) [#/Vol] 0.04 10*3/uL [facility] Basophils/100 WBC (Bld) 0.6 % [facility] Eosinophils (Bld) [#/Vol] 0.55 10*3/uL High [facility] Eosinophils/100 WBC (Bld) 7.6 % [facility] Erythrocyte distribution width (RBC) [Entitic vol] 13.7 % 11.6 - 14.8 % [facility] Hematocrit (Bld) [Volume fraction] 39.1 % Low 41.0 - 53.0 % [facility] Hemoglobin (Bld) [Mass/Vol] 12.7 g/dL Low 13.5 - 17.5 g/dL [facility] Immature granulocytes (Bld) [#/Vol] 0.03 10*3/uL [facility] Immature granulocytes/100 WBC (Bld) 0.4 % [facility] Comment on above: The IG parameter is the percentage of metamyelocytes, myelocytes and promyelocytes. An immature granulocyte count (IG) of 1% or more suggests the possibility of infection, an IG count of 3% is very likely related to an infection. Interpretation and review of laboratory results Abnormal [facility] Lymphocytes (Bld) [#/Vol] 0.52 10*3/uL Low [facility] Lymphocytes/100 WBC (Bld) 7.2 % [facility] MCH (RBC) [Entitic mass] 30.5 pg 26.0 - 34.0 pg [facility] MCHC (RBC) [Mass/Vol] 32.5 g/dL 31.0 - 37.0 g/dL [facility] MCV (RBC) [Entitic vol] 93.8 fL 80.0 - 100.0 fL [facility] Monocytes (Bld) [#/Vol] 0.55 10*3/uL [facility] Monocytes/100 WBC (Bld) 7.6 % [facility] Neutrophils (Bld) [#/Vol] 5.54 10*3/uL [facility] Neutrophils/100 WBC (Bld) 76.6 % [facility] Nucleated RBC (Bld) [#/Vol] 0 10*3/uL [facility] Nucleated RBC/100 WBC (Bld) [Ratio] 0 % [facility] Platelet mean volume (Bld) [Entitic vol] 11 fL 9.4 - 12.4 fL [facility] Platelets (Bld) [#/Vol] 158 10*3/uL [facility] RBC (Bld) [#/Vol] 4.17 10*6/uL Low [facility] WBC (Bld) [#/Vol] 7.23 10*3/uL [facility] CBC WITH AUTO DIFFERENTIALon 12-18-2024 AUTO NRBC 0.0 % [facility] Comment on above: Performed By: #### L [id number] #### LAB [address] [place], [place] [address] Gonsalo Tello M.D. [id number] AUTO NRBC ABS COUNT 0.00 K/mcL Normal 0.00-0.00 [facility] Comment on above: Performed By: #### L [id number] #### LAB [address] [place], [place] [address] Gonsalo Tello M.D. [id number] BASOPHILS ABSOLUTE COUNT 0.04 K/mcL Normal 0.00-0.30 [facility] Comment on above: Performed By: #### L [id number] #### LAB [address] [place], [place] [address] Gonsalo Tello M.D. [id number] Basophils/100 WBC (Bld) 0.6 % [facility] Comment on above: Performed By: #### L [id number] #### LAB [address] [place], [place] [address] Gonsalo Tello M.D. [id number] Eosinophils (Bld) [#/Vol] 0.55 10*3/uL High 0.00-0.50 [facility] Comment on above: Performed By: #### L [id number] #### LAB [address] [place] [address] Gonsalo Tello M.D. [id number] Eosinophils/100 WBC (Bld) 7.6 % Normal [facility] Comment on above: Performed By: #### L [id number] #### LAB [address] [place] [address] Gonsalo Tello M.D. [id number] Erythrocyte distribution width (RBC) [Ratio] 13.7 % Normal 11.6-14.8 [facility] Comment on above: Performed By: #### L [id number] #### LAB [address] [place] [address] Gonsalo Tello M.D. [id number] Hematocrit (Bld) [Volume fraction] 39.1 % Low 41.0-53.0 [facility] Comment on above: Performed By: #### L [id number] #### LAB [address] [place] [address] Gonsalo Tello M.D. [id number] Hemoglobin (Bld) [Mass/Vol] 12.7 g/dL Low 13.5-17.5 [facility] Comment on above: Performed By: #### L [id number] #### LAB [address] [place] [address] Gonsalo Tello M.D. [id number] IG ABSOLUTE 0.03 K/mcL Normal 0.00-0.30 [facility] Comment on above: Performed By: #### L [id number] #### LAB [address] [place] [address] Gonsalo Tello M.D. [id number] IG PERCENT 0.40 % Normal [facility] Comment on above: Result Comment: The IG parameter is the percentage of metamyelocytes, myelocytes and promyelocytes. An immature granulocyte count (IG) of 1% or more suggests the possibility of infection, an IG count of 3% is very likely related to an infection. Performed By: #### L [id number] #### LAB [address] [place] [address] Gonsalo Tello M.D. [id number] Lymphocytes (Bld) [#/Vol] 0.52 10*3/uL Low 0.90-4.00 [facility] Comment on above: Performed By: #### L [id number] #### LAB [address] [place] [address] Gonsalo Tello M.D. [id number] Lymphocytes/100 WBC (Bld) 7.2 % Normal [facility] Comment on above: Performed By: #### L [id number] #### LAB [address] [place] [address] Gonsalo Tello M.D. [id number] MCH (RBC) [Entitic mass] 30.5 pg Normal 26.0-34.0 [facility] Comment on above: Performed By: #### L [id number] #### LAB [address] [place] [address] Gonsalo Tello M.D. [id number] MCV (RBC) [Entitic vol] 93.8 fL Normal 80.0-100.0 [facility] Comment on above: Performed By: #### L [id number] #### LAB [address] [place] [address] Gonsalo Tello M.D. [id number] MEAN CORPUSCULAR HEMOGLOBIN CONC 32.5 g/dL Normal 31.0-37.0 [facility] Comment on above: Performed By: #### L [id number] ####[facility] LAB [address] [place] [address] Gonsalo Tello M.D. [id number] Monocytes (Bld) [#/Vol] 0.55 10*3/uL Normal 0.30-0.90 [facility] Comment on above: Performed By: #### L [id number] ####[facility] LAB [address] [place] [address] Gonsalo Tello M.D. [id number] Monocytes/100 WBC (Bld) 7.6 % Normal [facility] Comment on above: Performed By: #### L [id number] #### LAB [address] [place] [address] Gonsalo Tello M.D. [id number] NEUTROPHILS ABSOLUTE COUNT 5.54 K/mcL Normal 1.70-7.00 [facility] Comment on above: Performed By: #### L [id number] #### LAB [address] [place] [address] Gonsalo Tello M.D. [id number] Neutrophils/100 WBC (Bld) 76.6 % Normal [facility] Comment on above: Performed By: #### L [id number] #### LAB [address] [place] [address] Gonsalo Tello M.D. [id number] Platelet mean volume (Bld) [Entitic vol] 11.0 fL Normal 9.4-12.4 [facility] Comment on above: Performed By: #### L [id number] #### LAB [address] [place] [address] Gonsalo Tello M.D. [id number] Platelets (Bld) [#/Vol] 158 10*3/uL Normal 150-400 [facility] Comment on above: Performed By: #### L [id number] #### LAB [address] [place] [address] Gonsalo Tello M.D. [id number] RBC (Bld) [#/Vol] 4.17 10*6/uL Low 4.50-5.90 [facility] Comment on above: Performed By: #### L [id number] ####[facility] LAB [address] [place] [address] Gonsalo Tello M.D. [id number] WBC (Bld) [#/Vol] 7.23 10*3/uL Normal 4.50-11.00 [facility] Comment on above: Performed By: #### L [id number] ####[facility] LAB [address] [place] [address] Gonsalo Tello M.D. [id number] Glucose (Bld) [Mass/Vol]on 02-18-2024 Glucose [Mass/Vol] 116 mg/dL High 65 - 99 mg/dL [facility] Interpretation and review of laboratory results Abnormal [facility] Glucose [Mass/Vol] 131 mg/dL High 65 - 99 mg/dL [facility] Interpretation and review of laboratory results Abnormal [facility] MAGNESIUM LEVELon 12-18-2024 Magnesium [Mass/Vol] 2.1 mg/dL Normal 1.6-2.4 [facility] Comment on above: Performed By: #### 4 6109 ####[facility] LAB [address] [place], [place] [address] Gonsalo Tello M.D. [id number] Magnesium Levelon 12-18-2024 Magnesium [Mass/Vol] 2.1 mg/dL 1.6 - 2 .4 mg/dL [facility] No Panel Informationon 12-18 Interpretation and review of laboratory results Normal [facility] PHOSPHORUSon 12-18-2024 Phosphate [Mass/Vol] 3.3 mg/dL Normal 2.3-3.7 [facility] Comment on above: Performed By: #### 4 6608 #### [facility] LAB [address] [place], [place] [address] Gonsalo Tello M.D. [id number] POC GLUCOSE - [facility] 025 Glucose [Mass/Vol] 116 mg/dL High 65-99 [facility] Glucose [Mass/Vol] 131 mg/dL High 65-99 [facility] Phosphoruson 12-18-2024 Phosphate [Mass/Vol] 3.3 mg/dL 2.3 - 3 .7 mg/dL [facility] VANCOMYCIN LEVEL, RANDOMon 02-18-2024 VANCOMYCIN RANDOM 10.3 mcg/mL Normal [facility] Comment on above: Order Comment: As of 11/2021 vancomycin dosing for [facility] inpatients will be done by Bayesian dosing software rather than off traditional trough values. Please contact the site specific inpatient pharmacy before making dose changes off of trough values alone for admitted patients.No established reference range. Performed By: #### 4 6477 #### [facility] LAB [address] [place], [place] [address] Gonsalo Tello M.D. [id number] Vancomycin Level, Randomon 1 02-18-2024 Vancomycin [Mass/Vol] 10.3 mcg/mL [facility] Vancomycin [Mass/Vol]on 11-0 As of 11/2021 vancomycin dosing for [facility] inpatients will be done by Bayesian dosing software rather than off traditional trough values. Please contact the site specific inpatient pharmacy before making dose changes off of trough values alone for admitted patients. No established reference range. [facility] BASIC METABOLIC PANELon 11-19 Anion gap [Moles/Vol] 11 mmol/L Normal 10-20 [facility] Comment on above: Order Comment: Injur y/Trauma or Illness?:Illness/Other How long have you had these symptoms (acute/chronic)?:Unknown Reason for exam?:memory problems over the last 2 years: hx of tongue cancer: Type of Exam?:Unknown Additional signs and symptoms?:n Performed By: #### 4 6124 #### LAB [address] [place] [address] Gonsalo Tello M.D. [id number] Calcium [Mass/Vol] 8.9 mg/dL Normal 8.4-10.2 [facility] Comment on above: Order Comment: Injur y/Trauma or Illness?:Illness/Other How long have you had these symptoms (acute/chronic)?:Unknown Reason for exam?:memory problems over the last 2 years: hx of tongue cancer: Type of Exam?:Unknown Additional signs and symptoms?:n Performed By: #### 4 6124 #### LAB [address] [place] [address] Gonsalo Tello M.D. [id number] Chloride [Moles/Vol] 108 mmol/L Normal 98-108 [facility] Comment on above: Order Comment: Injur y/Trauma or Illness?:Illness/Other How long have you had these symptoms (acute/chronic)?:Unknown Reason for exam?:memory problems over the last 2 years: hx of tongue cancer: Type of Exam?:Unknown Additional signs and symptoms?:n Performed By: #### 4 6124 #### LAB [address] [place] [address] Gonsalo Tello M.D. [id number] Creatinine [Mass/Vol] 0.62 mg/dL Low 0.80-1.30 [facility] Comment on above: Order Comment: Injur y/Trauma or Illness?:Illness/Other How long have you had these symptoms (acute/chronic)?:Unknown Reason for exam?:memory problems over the last 2 years: hx of tongue cancer: Type of Exam?:Unknown Additional signs and symptoms?:n Performed By: #### 4 6124 #### LAB [address] [place] [id number] Gonsalo Tello M.D. [id number] EGFR 100 mL/min/1.73 m2 Normal >=60 [facility] Comment on above: Order Comment: Injur y/Trauma or Illness?:Illness/Other How long have you had these symptoms (acute/chronic)?:Unknown Reason for exam?:memory problems over the last 2 years: hx of tongue cancer: Type of Exam?:Unknown Additional signs and symptoms?:n Result Comment: Marv mated GFR was calculated using the 2020 CKD-EPI creatinine equation. Performed By: #### 4 6124 #### LAB [address] [place] [address] Gonsalo Tello M.D. [id number] Glucose [Mass/Vol] 110 mg/dL High 65-99 [facility] Comment on above: Order Comment: Injur y/Trauma or Illness?:Illness/Other How long have you had these symptoms (acute/chronic)?:Unknown Reason for exam?:memory problems over the last 2 years: hx of tongue cancer: Type of Exam?:Unknown Additional signs and symptoms?:n Performed By: #### 4 6101 #### LAB [address] [place] [address] Gonsalo Tello M.D. [id number] HCO3 (Bld) [Moles/Vol] 28 mmol/L Normal 21-32 [facility] Comment on above: Order Comment: Injur y/Trauma or Illness?:Illness/Other How long have you had these symptoms (acute/chronic)?:Unknown Reason for exam?:memory problems over the last 2 years: hx of tongue cancer: Type of Exam?:Unknown Additional signs and symptoms?:n Performed By: #### 4 6124 #### LAB [address] [place] [address] Gonsalo Tello M.D. [id number] Potassium [Moles/Vol] 4.0 mmol/L Normal 3.5-5.1 [facility] Comment on above: Order Comment: Injur y/Trauma or Illness?:Illness/Other How long have you had these symptoms (acute/chronic)?:Unknown Reason for exam?:memory problems over the last 2 years: hx of tongue cancer: Type of Exam?:Unknown Additional signs and symptoms?:n Performed By: #### 4 6124 #### LAB [address] [place] [address] Gonsalo Tello M.D. [id number] Sodium [Moles/Vol] 143 mmol/L Normal 135-145 [facility] Comment on above: Order Comment: Injur y/Trauma or Illness?:Illness/Other How long have you had these symptoms (acute/chronic)?:Unknown Reason for exam?:memory problems over the last 2 years: hx of tongue cancer: Type of Exam?:Unknown Additional signs and symptoms?:n Performed By: #### 4 6124 #### LAB [address] [place] [id number] Gonsalo Tello M.D. [id number] Urea nitrogen [Mass/Vol] 21 mg/dL Normal 8-25 [facility] Comment on above: Order Comment: Injur y/Trauma or Illness?:Illness/Other How long have you had these symptoms (acute/chronic)?:Unknown Reason for exam?:memory problems over the last 2 years: hx of tongue cancer: Type of Exam?:Unknown Additional signs and symptoms?:n Performed By: #### 4 6124 #### LAB [address] [place] [id number] Gonsalo Tello M.D. [id number] Urea nitrogen/Creatinine [Mass ratio] 33.9 mg/mg High 10.0-20.0 [facility] Comment on above: Order Comment: Injur y/Trauma or Illness?:Illness/Other How long have you had these symptoms (acute/chronic)?:Unknown Reason for exam?:memory problems over the last 2 years: hx of tongue cancer: Type of Exam?:Unknown Additional signs and symptoms?:n Performed By: #### 4 6124 #### LAB [address] [place], [place] [address] Gonsalo Tello M.D. [id number] Bacteria identified Aer cx N om (Unsp spec)Ordered By: Gloria Albright on 12-17-2024 [facility] Basic metabolic 2000 panelon 12-17-2024 Anion gap [Moles/Vol] 11 mmol/L 10 - 2 0 mmol/L [facility] Calcium [Mass/Vol] 8.9 mg/dL 8.4 - 10. 2 mg/dL [facility] Chloride [Moles/Vol] 108 mmol/L 98 - 10 8 mmol/L [facility] Creatinine [Mass/Vol] 0.62 mg/dL Low 0.80 - 1.30 mg/dL [facility] GFR/1.73 sq M.predicted CKD-EPI (S/P/Bld) [Vol rate/Area] 100 - PINF [facility] Comment on above: Estimated GFR was ca lculated using the 2020 CKD-EPI creatinine equation. Glucose [Mass/Vol] 110 mg/dL High 65 - 99 mg/dL [facility] [Moles/Vol] 28 mmol/L 21 - 32 mmol/L [facility] Potassium [Moles/Vol] 4 mmol/L 3.5 - 5.1 mmol/L [facility] Sodium [Moles/Vol] 143 mmol/L 135 - 145 mmol/L [facility] Urea nitrogen [Mass/Vol] 21 mg/dL 8 - 25 mg/dL [facility] Urea nitrogen/Creatinine [Mass ratio] 33.9 mg/mg High 10.0 - 20.0 [facility] has implemented the eGFR calculation approach that does not have a coefficient for race that conforms to the NKF-ASN Task Force Recommendations. [facility] CBC Auto Differentialon 11-19 Basophils (Bld) [#/Vol] 0.04 10*3/uL [facility] Basophils/100 WBC (Bld) 0.4 % [facility] Eosinophils (Bld) [#/Vol] 0.42 10*3/uL [facility] Eosinophils/100 WBC (Bld) 4.2 % [facility] Erythrocyte distribution width (RBC) [Entitic vol] 14 % 11.6 - 14.8 % [facility] Hematocrit (Bld) [Volume fraction] 38.2 % Low 41.0 - 53.0 % [facility] Hemoglobin (Bld) [Mass/Vol] 11.9 g/dL Low 13.5 - 17.5 g/dL [facility] Immature granulocytes (Bld) [#/Vol] 0.03 10*3/uL [facility] Immature granulocytes/100 WBC (Bld) 0.3 % [facility] Comment on above: The IG parameter is the percentage of metamyelocytes, myelocytes and promyelocytes. An immature granulocyte count (IG) of 1% or more suggests the possibility of infection, an IG count of 3% is very likely related to an infection. Interpretation and review of laboratory results Abnormal [facility] Lymphocytes (Bld) [#/Vol] 0.35 10*3/uL Low [facility] Lymphocytes/100 WBC (Bld) 3.5 % [facility] MCH (RBC) [Entitic mass] 29.9 pg 26.0 - 34.0 pg [facility] MCHC (RBC) [Mass/Vol] 31.2 g/dL 31.0 - 37.0 g/dL [facility] MCV (RBC) [Entitic vol] 96 fL 80.0 - 100.0 fL [facility] Monocytes (Bld) [#/Vol] 0.54 10*3/uL [facility] Monocytes/100 WBC (Bld) 5.5 % [facility] Neutrophils (Bld) [#/Vol] 8.51 10*3/uL High [facility] Neutrophils/100 WBC (Bld) 86.1 % [facility] Nucleated RBC (Bld) [#/Vol] 0 10*3/uL [facility] Nucleated RBC/100 WBC (Bld) [Ratio] 0 % [facility] Platelet mean volume (Bld) [Entitic vol] 11.3 fL 9.4 - 12.4 fL [facility] Platelets (Bld) [#/Vol] 143 10*3/uL Low [facility] RBC (Bld) [#/Vol] 3.98 10*6/uL Low [facility] WBC (Bld) [#/Vol] 9.89 10*3/uL [facility] CBC WITH AUTO DIFFERENTIALon 12-17-2024 AUTO NRBC 0.0 % Normal [facility] Comment on above: Performed By: #### L [id number] #### LAB [address] [place] [address] Gonsalo Tello M.D. [id number] AUTO NRBC ABS COUNT 0.00 K/mcL Normal 0.00-0.00 [facility] Comment on above: Performed By: #### L [id number] #### LAB [address] [place] [address] Gonsalo Tello M.D. [id number] BASOPHILS ABSOLUTE COUNT 0.04 K/mcL Normal 0.00-0.30 [facility] Comment on above: Performed By: #### L [id number] #### LAB [address] [place] [address] Gonsalo Tello M.D. [id number] Basophils/100 WBC (Bld) 0.4 % Normal [facility] Comment on above: Performed By: #### L [id number] #### LAB [address] [place] [address] Gonsalo Tello M.D. [id number] Eosinophils (Bld) [#/Vol] 0.42 10*3/uL Normal 0.00-0.50 [facility] Comment on above: Performed By: #### L [id number] #### LAB [address] [place] [address] Gonsalo Tello M.D. [id number] Eosinophils/100 WBC (Bld) 4.2 % Normal [facility] Comment on above: Performed By: #### L [id number] #### LAB [address] [place] [address] Gonsalo Tello M.D. [id number] Erythrocyte distribution width (RBC) [Ratio] 14.0 % Normal 11.6-14.8 [facility] Comment on above: Performed By: #### L [id number] #### LAB [address] [place] [address] Gonsalo Tello M.D. [id number] Hematocrit (Bld) [Volume fraction] 38.2 % Low 41.0-53.0 [facility] Comment on above: Performed By: #### L [id number] #### LAB [address] [place] [address] Gonsalo Tello M.D. [id number] Hemoglobin (Bld) [Mass/Vol] 11.9 g/dL Low 13.5-17.5 [facility] Comment on above: Performed By: #### L [id number] #### LAB [address] [place] [address] Gonsalo Tello M.D. [id number] IG ABSOLUTE 0.03 K/mcL Normal 0.00-0.30 [facility] Comment on above: Performed By: #### L [id number] #### LAB [address] [place] [address] Gonsalo Tello M.D. [id number] IG PERCENT 0.30 % Normal [facility] Comment on above: Result Comment: The IG parameter is the percentage of metamyelocytes, myelocytes and promyelocytes. An immature granulocyte count (IG) of 1% or more suggests the possibility of infection, an IG count of 3% is very likely related to an infection. Performed By: #### L [id number] #### LAB [address] [place] [address] Gonsalo Tello M.D. [id number] Lymphocytes (Bld) [#/Vol] 0.35 10*3/uL Low 0.90-4.00 [facility] Comment on above: Performed By: #### L [id number] #### LAB [address] [address] Gonsalo Tello M.D. [id number] Lymphocytes/100 WBC (Bld) 3.5 % [facility] Comment on above: Performed By: #### L [id number] #### LAB [address] [place] [address] Gonsalo Tello M.D. [id number] MCH (RBC) [Entitic mass] 29.9 pg Normal 26.0-34.0 [facility] Comment on above: Performed By: #### L [id number] #### LAB [address] [address] Gonaslo Tello M.D. [id number] MCV (RBC) [Entitic vol] 96.0 fL Normal 80.0-100.0 [facility] Comment on above: Performed By: #### L [id number] #### LAB [address] [address] Gonsalo Tello M.D. [id number] MEAN CORPUSCULAR HEMOGLOBIN CONC 31.2 g/dL Normal 31.0-37.0 [facility] Comment on above: Performed By: #### L [id number] #### LAB [address] [address] Gonsalo Tello M.D. [id number] Monocytes (Bld) [#/Vol] 0.54 10*3/uL Normal 0.30-0.90 [facility] Comment on above: Performed By: #### L [id number] #### LAB [address] [address] Gonsalo Tello M.D. [id number] Monocytes/100 WBC (Bld) 5.5 % Normal [facility] Comment on above: Performed By: #### L [id number] #### LAB [address] [address] Gonsalo Tello M.D. [id number] NEUTROPHILS ABSOLUTE COUNT 8.51 K/mcL High 1.70-7.00 [facility] Comment on above: Performed By: #### L [id number] #### LAB [address] [address] Gonsalo Tello M.D. [id number] Neutrophils/100 WBC (Bld) 86.1 % Normal [facility] Comment on above: Performed By: #### L [id number] #### LAB [address] [address] Gonsalo Tello M.D. [id number] Platelet mean volume (Bld) [Entitic vol] 11.3 fL Normal 9.4-12.4 [facility] Comment on above: Performed By: #### L [id number] #### LAB [address] [place], [place] [address] Gonsalo Tello M.D. [id number] Platelets (Bld) [#/Vol] 143 10*3/uL Low 150-400 [facility] Comment on above: Performed By: #### L [id number] ####[facility] LAB [address] [address] Gonsalo Tello M.D. [id number] RBC (Bld) [#/Vol] 3.98 10*6/uL Low 4.50-5.90 [facility] Comment on above: Performed By: #### L [id number] ####[facility] LAB [address] [address] Gonsalo Tello M.D. [id number] WBC (Bld) [#/Vol] 9.89 10*3/uL Normal 4.50-11.00 [facility] Comment on above: Performed By: #### L [id number] #### LAB [address] [address] Gonsalo Tello M.D. [id number] Glucose (Bld) [Mass/Vol]on Glucose [Mass/Vol] 132 mg/dL High 65 - 99 mg/dL [facility] oHealth Interpretation and review of laboratory results Abnormal [facility] Glucose [Mass/Vol] 146 mg/dL High 65 - 99 mg/dL [facility] Interpretation and review of laboratory results Abnormal [facility] Glucose [Mass/Vol] 114 mg/dL High 65 - 99 mg/dL [facility] Interpretation and review of laboratory results Abnormal [facility] Glucose [Mass/Vol] 127 mg/dL High 65 - 99 mg/dL [facility] Interpretation and review of laboratory results Abnormal [facility] MAGNESIUM LEVELon 12-17-2024 Magnesium [Mass/Vol] 2.1 mg/dL Normal 1.6-2.4 [facility] Comment on above: Performed By: #### 4 [id number] #### [facility] [address] Amauri Barone M.D. [id number] Magnesium Levelon 12-17-2024 Magnesium [Mass/Vol] 2.1 mg/dL 1.6 - 2 .4 mg/dL [facility] Magnesium [Mass/Vol]on 12-17 Interpretation and review of laboratory results Normal [facility] No Panel Informationon 12-17 Interpretation and review of laboratory results Abnormal [facility] PHOSPHORUSon 12-17-2024 Phosphate [Mass/Vol] 2.1 mg/dL Low 2.3-3.7 [facility] Comment on above: Performed By: #### 4 [id number] ####[facility] LAB [address] [place], [place] [address] Gonsalo Tello M.D. [id number] POC GLUCOSE - [facility] 025 Glucose [Mass/Vol] 132 mg/dL High 65- [facility] Glucose [Mass/Vol] 146 mg/dL High 65- [facility] Glucose [Mass/Vol] 114 mg/dL High 65- [facility] Glucose [Mass/Vol] 127 mg/dL High 65-99 [facility] Phosphoruson 12-17-2024 Phosphate [Mass/Vol] 2.1 mg/dL Low 2.3 - 3 .7 mg/dL [facility] Urine Aerobic CultureOrdered By: Gloria Albright on 12-17-2024 Bacteria identified Aer cx Nom (Unsp spec) No Growth (<1,000 CFU/mL) [facility] BASIC METABOLIC PANELon 11-19 Anion gap [Moles/Vol] 11 mmol/L Normal 10-20 [facility] Comment on above: Order Comment: Injur y/Trauma or Illness?:Illness/Other How long have you had these symptoms (acute/chronic)?:Acute Reason for exam?:Central line placement History of cancer?:tongue cancer Surgeries, chemotherapy, or radiation?:yes Type of Exam?:Initial Additional signs and symptoms?:. Performed By: #### 4 6124 ####[facility] LAB [address] [place], [place] [address] Gonsalo Tello M.D. [id number] Calcium [Mass/Vol] 8.5 mg/dL Normal 8.4-10.2 [facility] Comment on above: Order Comment: Injur y/Trauma or Illness?:Illness/Other How long have you had these symptoms (acute/chronic)?:Acute Reason for exam?:Central line placement History of cancer?:tongue cancer Surgeries, chemotherapy, or radiation?:yes Type of Exam?:Initial Additional signs and symptoms?:. Performed By: #### 4 [id number] #### LAB [address] [address] Gonsalo Tello M.D. [id number] Chloride [Moles/Vol] 109 mmol/L High 98-108 [facility] Comment on above: Order Comment: Injur y/Trauma or Illness?:Illness/Other How long have you had these symptoms (acute/chronic)?:Acute Reason for exam?:Central line placement History of cancer?:tongue cancer Surgeries, chemotherapy, or radiation?:yes Type of Exam?:Initial Additional signs and symptoms?:. Performed By: #### 4 [id number] #### LAB [address] [address] Gonsalo Tello M.D. [id number] Creatinine [Mass/Vol] 0.85 mg/dL Normal 0.80-1.30 [facility] Comment on above: Order Comment: Injur y/Trauma or Illness?:Illness/Other How long have you had these symptoms (acute/chronic)?:Acute Reason for exam?:Central line placement History of cancer?:tongue cancer Surgeries, chemotherapy, or radiation?:yes Type of Exam?:Initial Additional signs and symptoms?:. Performed By: #### 4 6124 #### LAB [address] [address] Gonsalo Tello M.D. [id number] EGFR 91 mL/min/1.73 m2 Normal >=60 [facility] Comment on above: Order Comment: Injur y/Trauma or Illness?:Illness/Other How long have you had these symptoms (acute/chronic)?:Acute Reason for exam?:Central line placement History of cancer?:tongue cancer Surgeries, chemotherapy, or radiation?:yes Type of Exam?:Initial Additional signs and symptoms?:. Result Comment: Marv mated GFR was calculated using the 2020 CKD-EPI creatinine equation. Performed By: #### 4 6134 #### LAB [address] [address] Gonsalo Tello M.D. [id number] Glucose [Mass/Vol] 118 mg/dL High 65-99 [facility] Comment on above: Order Comment: Injur y/Trauma or Illness?:Illness/Other How long have you had these symptoms (acute/chronic)?:Acute Reason for exam?:Central line placement History of cancer?:tongue cancer Surgeries, chemotherapy, or radiation?:yes Type of Exam?:Initial Additional signs and symptoms?:. Performed By: #### 4 6124 #### LAB [address] [address] Gonsalo Tello M.D. [id number] HCO3 (Bld) [Moles/Vol] 29 mmol/L Normal 21-32 [facility] Comment on above: Order Comment: Injur y/Trauma or Illness?:Illness/Other How long have you had these symptoms (acute/chronic)?:Acute Reason for exam?:Central line placement History of cancer?:tongue cancer Surgeries, chemotherapy, or radiation?:yes Type of Exam?:Initial Additional signs and symptoms?:. Performed By: #### 4 6124 #### LAB [address] [address] Gonsalo Tello M.D. [id number] Potassium [Moles/Vol] 3.8 mmol/L Normal 3.5-5.1 [facility] Comment on above: Order Comment: Injur y/Trauma or Illness?:Illness/Other How long have you had these symptoms (acute/chronic)?:Acute Reason for exam?:Central line placement History of cancer?:tongue cancer Surgeries, chemotherapy, or radiation?:yes Type of Exam?:Initial Additional signs and symptoms?:. Performed By: #### 4 6124 #### LAB [address] [address] Gonsalo Tello M.D. [id number] Sodium [Moles/Vol] 145 mmol/L Normal 135-145 [facility] Comment on above: Order Comment: Injur y/Trauma or Illness?:Illness/Other How long have you had these symptoms (acute/chronic)?:Acute Reason for exam?:Central line placement History of cancer?:tongue cancer Surgeries, chemotherapy, or radiation?:yes Type of Exam?:Initial Additional signs and symptoms?:. Performed By: #### 4 6124 #### LAB [address] [id number] Gonsalo Tello M.D. [id number] Urea nitrogen [Mass/Vol] 26 mg/dL High 8-25 [facility] Comment on above: Order Comment: Injur y/Trauma or Illness?:Illness/Other How long have you had these symptoms (acute/chronic)?:Acute Reason for exam?:Central line placement History of cancer?:tongue cancer Surgeries, chemotherapy, or radiation?:yes Type of Exam?:Initial Additional signs and symptoms?:. Performed By: #### 4 6124 #### LAB [address] [address] Gonsalo Tello M.D. [id number] Urea nitrogen/Creatinine [Mass ratio] 30.6 mg/mg High 10.0-20.0 [facility] Comment on above: Order Comment: Injur y/Trauma or Illness?:Illness/Other How long have you had these symptoms (acute/chronic)?:Acute Reason for exam?:Central line placement History of cancer?:tongue cancer Surgeries, chemotherapy, or radiation?:yes Type of Exam?:Initial Additional signs and symptoms?:. Performed By: #### 4 [id number] #### LAB [address] [place], [place] [address] Gonsalo Tello M.D. [id number] Basic metabolic 2000 panelon 12-16-2024 Anion gap [Moles/Vol] 11 mmol/L 10 - 2 0 mmol/L [facility] Calcium [Mass/Vol] 8.5 mg/dL 8.4 - 10. 2 mg/dL [facility] Chloride [Moles/Vol] 109 mmol/L High 98 - 10 8 mmol/L [facility] Creatinine [Mass/Vol] 0.85 mg/dL 0.80 - 1.30 mg/dL [facility] GFR/1.73 sq M.predicted CKD-EPI (S/P/Bld) [Vol rate/Area] 91 - PINF [facility] Comment on above: Estimated GFR was ca lculated using the 2020 CKD-EPI creatinine equation. Glucose [Mass/Vol] 118 mg/dL High 65 - 99 mg/dL [facility] [Moles/Vol] 29 mmol/L 21 - 32 mmol/L [facility] Interpretation and review of laboratory results Abnormal [facility] Potassium [Moles/Vol] 3.8 mmol/L 3.5 - 5.1 mmol/L [facility] Sodium [Moles/Vol] 145 mmol/L 135 - 145 mmol/L [facility] Urea nitrogen [Mass/Vol] 26 mg/dL High 8 - 25 mg/dL [facility] Urea nitrogen/Creatinine [Mass ratio] 30.6 mg/mg High 10.0 - 20.0 [facility] y Services has implemented the eGFR calculation approach that does not have a coefficient for race that conforms to the NKF-ASN Task Force Recommendations. [facility] CBC Auto Differentialon 11-19 Basophils (Bld) [#/Vol] 0.06 10*3/uL [facility] Basophils/100 WBC (Bld) 0.3 % [facility] Eosinophils (Bld) [#/Vol] 0.05 10*3/uL [facility] Eosinophils/100 WBC (Bld) 0.2 % [facility] Erythrocyte distribution width (RBC) [Entitic vol] 14.1 % 11.6 - 14.8 % [facility] Hematocrit (Bld) [Volume fraction] 38.3 % Low 41.0 - 53.0 % [facility] Hemoglobin (Bld) [Mass/Vol] 12.2 g/dL Low 13.5 - 17.5 g/dL [facility] Immature granulocytes (Bld) [#/Vol] 0.12 10*3/uL [facility] Immature granulocytes/100 WBC (Bld) 0.6 % [facility] Comment on above: The IG parameter is the percentage of metamyelocytes, myelocytes and promyelocytes. An immature granulocyte count (IG) of 1% or more suggests the possibility of infection, an IG count of 3% is very likely related to an infection. Interpretation and review of laboratory results Abnormal [facility] Lymphocytes (Bld) [#/Vol] 0.55 10*3/uL Low [facility] Lymphocytes/100 WBC (Bld) 2.7 % [facility] MCH (RBC) [Entitic mass] 30.3 pg 26.0 - 34.0 pg [facility] MCHC (RBC) [Mass/Vol] 31.9 g/dL 31.0 - 37.0 g/dL [facility] MCV (RBC) [Entitic vol] 95.3 fL 80.0 - 100.0 fL [facility] Monocytes (Bld) [#/Vol] 0.79 10*3/uL [facility] Monocytes/100 WBC (Bld) 3.9 % [facility] Neutrophils (Bld) [#/Vol] 18.8 10*3/uL High [facility] Neutrophils/100 WBC (Bld) 92.3 % [facility] Nucleated RBC (Bld) [#/Vol] 0 10*3/uL [facility] Nucleated RBC/100 WBC (Bld) [Ratio] 0 % [facility] Platelet mean volume (Bld) [Entitic vol] 10.9 fL 9.4 - 12.4 fL [facility] Platelets (Bld) [#/Vol] 168 10*3/uL [facility] RBC (Bld) [#/Vol] 4.02 10*6/uL Low [facility] WBC (Bld) [#/Vol] 20.37 10*3/uL [facility] CBC WITH AUTO DIFFERENTIALon 12-16-2024 AUTO NRBC 0.0 % [facility] Comment on above: Performed By: #### L [id number] #### LAB [address] [address] Gonsalo Tello M.D. [id number] AUTO NRBC ABS COUNT 0.00 K/mcL Normal 0.00-0.00 [facility] Comment on above: Performed By: #### L [id number] #### LAB [address] [address] Gonsalo Tello M.D. [id number] BASOPHILS ABSOLUTE COUNT 0.06 K/mcL Normal 0.00-0.30 [facility] Comment on above: Performed By: #### L [id number] #### LAB [address] [address] Gonsalo Tello M.D. [id number] Basophils/100 WBC (Bld) 0.3 % [facility] Comment on above: Performed By: #### L [id number] #### LAB [address] [address] Gonsalo Tello M.D. [id number] Eosinophils (Bld) [#/Vol] 0.05 10*3/uL Normal 0.00-0.50 [facility] Comment on above: Performed By: #### L [id number] #### LAB [address] [address] Gonsalo Tello M.D. [id number] Eosinophils/100 WBC (Bld) 0.2 % Normal [facility] Comment on above: Performed By: #### L [id number] #### LAB [address] [address] Gonsalo Tello M.D. [id number] Erythrocyte distribution width (RBC) [Ratio] 14.1 % Normal 11.6-14.8 [facility] Comment on above: Performed By: #### L [id number] #### LAB [address] [address] Gonsalo Tello M.D. [id number] Hematocrit (Bld) [Volume fraction] 38.3 % Low 41.0-53.0 [facility] Comment on above: Performed By: #### L [id number] #### LAB [address] [address] Gonsalo Tello M.D. [id number] Hemoglobin (Bld) [Mass/Vol] 12.2 g/dL Low 13.5-17.5 [facility] Comment on above: Performed By: #### L [id number] #### LAB [address] [address] Gonsalo Tello M.D. [id number] IG ABSOLUTE 0.12 K/mcL Normal 0.00-0.30 [facility] Comment on above: Performed By: #### L [id number] #### LAB [address] [place] [address] Gonsalo Tello M.D. [id number] IG PERCENT 0.60 % Normal [facility] Comment on above: Result Comment: The IG parameter is the percentage of metamyelocytes, myelocytes and promyelocytes. An immature granulocyte count (IG) of 1% or more suggests the possibility of infection, an IG count of 3% is very likely related to an infection. Performed By: #### L [id number] #### LAB [address] [place] [address] Gonsalo Tello M.D. [id number] Lymphocytes (Bld) [#/Vol] 0.55 10*3/uL Low 0.90-4.00 [facility] Comment on above: Performed By: #### L [id number] #### LAB [address] [address] Gonsalo Tello M.D. [id number] Lymphocytes/100 WBC (Bld) 2.7 % Normal [facility] Comment on above: Performed By: #### L [id number] #### LAB [address] [place] [address] Gonsalo Tello M.D. [id number] MCH (RBC) [Entitic mass] 30.3 pg Normal 26.0-34.0 [facility] Comment on above: Performed By: #### L [id number] #### LAB [address] [place] [address] Gonsalo Tello M.D. [id number] MCV (RBC) [Entitic vol] 95.3 fL Normal 80.0-100.0 [facility] Comment on above: Performed By: #### L [id number] #### LAB [address] [place] [address] Gonsalo eTllo M.D. [id number] MEAN CORPUSCULAR HEMOGLOBIN CONC 31.9 g/dL Normal 31.0-37.0 [facility] Comment on above: Performed By: #### L [id number] #### LAB [address] [place] [address] Gonsalo Tello M.D. [id number] Monocytes (Bld) [#/Vol] 0.79 10*3/uL Normal 0.30-0.90 [facility] Comment on above: Performed By: #### L [id number] #### LAB [address] [address] Gonsalo Tello M.D. [id number] Monocytes/100 WBC (Bld) 3.9 % Normal [facility] Comment on above: Performed By: #### L [id number] #### LAB [address] [address] Gonsalo Tello M.D. [id number] NEUTROPHILS ABSOLUTE COUNT 18.80 K/mcL High 1.70-7.00 [facility] Comment on above: Performed By: #### L [id number] ####[facility] LAB [address] [address] Gonsalo Tello M.D. [id number] Neutrophils/100 WBC (Bld) 92.3 % Normal [facility] Comment on above: Performed By: #### L [id number] #### LAB [address] [address] Gonsalo Tello M.D. [id number] Platelet mean volume (Bld) [Entitic vol] 10.9 fL Normal 9.4-12.4 [facility] Comment on above: Performed By: #### L [id number] ####[facility] LAB [address] [address] Gonsalo Tello M.D. [id number] Platelets (Bld) [#/Vol] 168 10*3/uL Normal 150-400 [facility] Comment on above: Performed By: #### L [id number] ####[facility] LAB [address] [address] Gonsalo Tello M.D. [id number] RBC (Bld) [#/Vol] 4.02 10*6/uL Low 4.50-5.90 [facility] Comment on above: Performed By: #### L [id number] ####[facility] LAB [address] [address] Gonsalo Tello M.D. [id number] WBC (Bld) [#/Vol] 20.37 10*3/uL High 4.50-11.00 [facility] Comment on above: Performed By: #### L [id number] ####[facility] LAB [address] [place], [place] [address] Gonsalo Tello M.D. [id number] CONSULTon 12-16-2024 CONSULT Patient Name: Deidra Sun MR #: [id number] : 1950 Physicians: Ulices Clark, (Family); No ref. provider found (Referring) Chief complaint: Amy Sun is a 74 y.o. male presented with worsening history of fever, and weakness. History: I have reviewed the patient's past medical history, past surgical history, family history, social history. 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 Patient was recently discharged on November 22, 2024, at that time was treated for possible aspiration pneumonia with septic shock, and was recorded MRSA positive in the sputum, was given p.o. linezolid on discharge for 7 days. at the bedside has offered most of the history as patient communication was poor due to tongue cancer. States that patient since 2 days has been having fever , And also was weak and coughing with sputum production. Since on this admission patient had had a Tmax of 98.6, there was no recorded history of nausea vomiting, or diarrhea, no history of chest pain, and no obvious urinary symptoms of dysuria or hematuria, no obvious history of joint pain or swellings, he was found with systolic in the 60s since on admission, and also had a leukocytosis with WBC of 23,000 , had a blood culture that is still pending with no growth in 2 sets of blood culture while the COVID-19 screening has been negative. During this evaluation patient had a chest x-ray that had shown slight but noticeable improve infiltrates in the mid Lung chen. had stated that while patient was discharged last time, he had made some improvement but had not quite recovered fully though he had been done with the antibiotics prescribed. Patient is currently being evaluated for fever, history of pneumonia, malignancy of the tongue, and leukocytosis, hypotension and antibiotics management. 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 Chronic kidney disease (CKD) stage G1/A2, glomerular filtration rate (GFR) equal to or greater than 90 mL/min/1.73 square meter and albuminuria creatinine ratio between 30-299 mg/g COPD (chronic obstructive pulmonary disease) (HCC) ED (erectile dysfunction) Edema leg bilateral GERD (gastroesophageal reflux disease) Hepatic steatosis Hyperlipidemia Hypertension Insomnia Lung disorder Migraine without aura and without status migrainosus, not intractable 09/25/2023 Prediabetes Past Surgical History: Procedure Laterality Date ABDOMINAL SURGERY CATARACT EXTRACTION BILATERAL W/ ANTERIOR VITRECTOMY CATARACT EXTRACTION BILATERAL W/ ANTERIOR VITRECTOMY Bilateral CT COLONOSCOPY 03/25/2022 CT COLONOSCOPY LAPAROSCOPIC INGUINAL HERNIA REPAIR [address] Holder for tongue cancer PEG TUBE PLACEMENT 04/04/2023 VASECTOMY Family History Problem Relation Age of Onset Stroke Father Heart disease Father Coronary artery disease Father Diabetes Sister Coronary artery disease Brother Social History [1] Travel History: None Animal Contact: None Medications: I have reviewed the patient's medications. Scheduled Meds: apixaban 5 mg Tube BID aspirin 81 mg Tube Daily cefePIMe (MAXIPIME) IVPB 2,000 mg Intravenous Q8H cyanocobalamin 2,500 mcg Tube Nightly [Held by provider] doxazosin 4 mg Oral Nightly famotidine 20 mg Tube BID roflumilast 500 mcg Tube Daily sertraline 50 mg Tube Daily vancomycin 1,000 mg Intravenous Q12H Allergy Information: I have reviewed the patient's allergies. Budesonide, Revefenacin, and Ipratropium-albuterol Review of Systems: Review of Systems Constitutional: Positive for appetite change, chills, fatigue and fever. Respiratory: Negative for cough, shortness of breath and wheezing. Cardiovascular: Negative for chest pain, palpitations and leg swelling. Gastrointestinal: Negative for abdominal distention, abdominal pain, constipation, diarrhea, nausea and vomiting. Endocrine: Negative for polydipsia, polyphagia and polyuria. Genitourinary: Negative for dysuria, flank pain, frequency and hematuria. Musculoskeletal: Negative for joint swelling, neck pain and neck stiffness. Skin: Negative for color change, pallor and rash. Neurological: Positive for weakness. Negative for dizziness, numbness and headaches. Psychiatric/Behavioral : Negative for confusion. Labs: Lab Results Component Value Date WBC 20.37 (H) 12/16/2024 HGB 12.2 (L) 12/16/2024 HCT 38.3 (L) 12/16/2024 MCV 95.3 12/16/2024 PLT 168 12/16/2024 Lab Results Component Value Date HGBA1C 5.4 11/18/2024 No results found for: SEDRATE No results found for: CRP Radiology: XR Chest 1 View Final Result 1. Slight but n (more content not included)... Normal [facility] CRP [Mass/Vol]on 12-16-2024 Interpretation and review of laboratory results Abnormal [facility] CRP, INFLAMMATIONon 12-17-19 CRP [Mass/Vol] 138.0 mg/L High 0.0-10.0 [facility] Comment on above: Performed By: #### 4 [id number] ####[facility] [address] [place], [place] [address] Gonsalo Tello M.D. [id number] CRP, Inflammation 12-17-19 CRP [Mass/Vol] 138 mg/L High 0.0 - 10.0 mg/L [facility] EKGon 12-16-2024 [facility] EKG 12-leadon 12-16-2024 Atrial Rate 81 BPM [facility] P [place] 54 degrees [facility] P-R Interval 162 ms [facility] Q-T Interval 384 ms [facility] QRS Duration 80 ms [facility] QTC Calculation (Bezet) 446 ms [facility] R [place] 41 degrees [facility] T [place] 63 degrees [facility] Ventricular Rate 81 BPM [facility] Sinus rhythm with Premature atrial complexes Otherwise normal ECG ECG Cart Interpretation see physician note for interpretation. Confirmed by Meg Castro ([id number]) on 12/16/2024 12:20:44 PM [facility] ESR Westergren method (Bld) [Velocity]on 12-16-2024 ESR (Bld) [Velocity] 14 mm/h [facility] Interpretation and review of laboratory results Normal [facility] Glucose (Bld) [Mass/Vol]on Glucose [Mass/Vol] 103 mg/dL High 65 - 99 mg/dL [facility] Interpretation and review of laboratory results Abnormal [facility] Glucose [Mass/Vol] 136 mg/dL High 65 - 99 mg/dL [facility] Interpretation and review of laboratory results Abnormal [facility] Glucose [Mass/Vol] 127 mg/dL High 65 - 99 mg/dL [facility] Interpretation and review of laboratory results Abnormal [facility] Glucose [Mass/Vol] 128 mg/dL High 65 - 99 mg/dL [facility] Interpretation and review of laboratory results Abnormal [facility] Glucose [Mass/Vol] 109 mg/dL High 65 - 99 mg/dL [facility] Interpretation and review of laboratory results Abnormal [facility] Glucose [Mass/Vol] 110 mg/dL High 65 - 99 mg/dL [facility] Interpretation and review of laboratory results Abnormal [facility] LACTIC ACID, PLASMAon 2024 LACTIC ACID, PLASMA 1.1 mmol/L Normal 0.6-2.0 [facility] Comment on above: Performed By: #### 4 [id number] #### [facility] [address], [place] [address] Gonsalo Tello M.D. [id number] Lactate [Moles/Vol]on 2024 Interpretation and review of laboratory results Normal [facility] Lactic Acid, Plasmaon 2024 Lactate [Moles/Vol] 1.1 mmol/L 0.6 - 2. 0 mmol/L [facility] MAGNESIUM LEVELon 12-16-2024 Magnesium [Mass/Vol] 2.0 mg/dL Normal 1.6-2.4 [facility] Comment on above: Performed By: #### 4 [id number] #### LAB [address], [place] [address] Gonsalo Tello M.D. [id number] Magnesium Levelon 12-16-2024 Magnesium [Mass/Vol] 2 mg/dL 1.6 - 2 .4 mg/dL [facility] No Panel Informationon 12-16 Interpretation and review of laboratory results Normal [facility] PHOSPHORUSon 12-16-2024 Phosphate [Mass/Vol] 2.5 mg/dL Normal 2.3-3.7 [facility] Comment on above: Performed By: #### 4 [id number] #### LAB [address], [place] [address] Gonsalo Tello M.D. [id number] POC GLUCOSE - [facility] 025 Glucose [Mass/Vol] 103 mg/dL High 65-99 [facility] Glucose [Mass/Vol] 136 mg/dL High 65- [facility] Glucose [Mass/Vol] 127 mg/dL High 65- [facility] Glucose [Mass/Vol] 128 mg/dL High 65- [facility] Glucose [Mass/Vol] 109 mg/dL High 65- [facility] Glucose [Mass/Vol] 110 mg/dL High 65- [facility] PROCALCITONINon 12-16-2024 PROCALCITONIN 0.18 ng/ml Normal <0.50 [facility] Comment on above: Order Comment: Resul ts <0.50 ng/ml represent a low risk of severe sepsis and/or septic shock. Performed By: #### 4 [id number] #### LAB [address], [place] [address] Gonsalo Tello M.D. [id number] Phosphoruson 12-16-2024 Phosphate [Mass/Vol] 2.5 mg/dL 2.3 - 3 .7 mg/dL [facility] Procalcitoninon 12-16-2024 Procalcitonin [Mass/Vol] 0.18 ng/mL NINF - 0.50 ng/ml [facility] Procalcitonin [Mass/Vol]on Interpretation and review of laboratory results Normal [facility] Results <0.50 ng/ml represent a low risk of severe sepsis and/or septic shock. [facility] SEDIMENTATION RATEon 025 SEDIMENTATION RATE, ERYTHROCYTE 14 mm/hr Normal 0-20 [facility] Comment on above: Performed By: #### 4 [id number] #### LAB [address], [place] [address] Gonsalo Tello M.D. [id number] SPUTUM AEROBIC CULTUREon SPUTUM AEROBIC CULTURE RESPIRATORY CULTURE ESCHERICHIA COLI Moderate Growth Escherichia coli STAPHYLOCOCCUS AUREUS Moderate Growth Staphylococcus aureus Methicillin Resistant Staphylococcus aureus (MRSA) Light Growth Normal Respiratory Jillian GRAM STAIN RESULT Few WBC Moderate Epithelial Cells Few Mixed Jillian Organism: ESCHERICHIA COLI Antibiotic Interpretation AKASH Status Ampicillin Susc Islt R >=32 F Cefazolin Susc Islt S 2 F Cefuroxime Oral Susc Islt S 4 F Ceftriaxone Susc Islt S <=0.25 F Cefepime Susc Islt S <=0.12 F Ampicillin+Sulbac Susc Islt I 16 F Pip+Tazo Susc Islt S <=4 F Aztreonam Susc Islt S <=1 F B-Lactamase Extended Susc Islt S Negative F Gentamicin Susc Islt S <=1 F Tobramycin Susc Islt S <=1 F Amikacin Susc Islt S 2 F Doxycycline Susc Islt S <=0.5 F Ciprofloxacin Susc Islt R >=4 F Levofloxacin Susc Islt R >=8 F TMP SMX Susc Islt S <=20 F Organism: STAPHYLOCOCCUS AUREUS Antibiotic Interpretation AKASH Status Cefazolin Susc Islt R F Clindamycin Susc Islt S 0.25 F Doxycycline Susc Islt I 8 F Erythromycin Susc Islt R >=8 F Oxacillin Susc Islt R >=4 F TMP SMX Susc Islt R >=320 F Vancomycin Susc Islt S 1 F Abnormal [facility] Comment on above: Performed By: #### 4 [id number] #### [facility] [address] [address] Amauri Baroen M.D. [id number] TROPONIN X 2 (NOW AND REPEAT IN 2 HOURS)on 12-16-2024 BASELINE TROPONIN T NG/L 30 ng/L Off scale high <=22 [facility] Comment on above: Performed By: #### 4 [id number] #### LAB [address] [address] Gonsalo Tello M.D. [id number] TROPONIN T INTERPRETATION Possible acute cardiac injury. Normal [facility] Comment on above: Performed By: #### 4 [id number] #### LAB [address], [place] [address] Gonsalo Tello M.D. [id number] TROPONIN T DELTA CHANGE INTERPRETATION Probable non-acute cardiac injury or late presentation of acute injury. Normal [facility] Comment on above: Performed By: #### 4 [id number] #### LAB [address] [address] Gonsalo Tello M.D. [id number] TROPONIN T DELTA DIFFERENCE 4 ng/L Normal < = -/+ 7 change [facility] Comment on above: Performed By: #### 4 [id number] #### LAB [address], [place] [address] Gonsalo Tello M.D. [id number] TROPONIN T NG/L 30 ng/L Off scale high <=22 [facility] Comment on above: Performed By: #### 4 [id number] #### LAB [address], [place] [address] Gonsaol Tello M.D. [id number] Troponin x 2 (Now and Repeat in 2 Hours)on 12-16-2024 Interpretation and review of laboratory results Abnormal [facility] Troponin T 30 ng/L Critically high NINF - 22 ng/L [facility] Troponin T Interpretation Possible acute cardiac injury. [facility] Troponin x 2 (Now and Repeat in 2 Hours)Ordered By: Hailee Hanks on 12-16-2024 Delta Difference Troponin T 4 ng/L < = -/+ 7 change [facility] Inter Troponin T Delta Change Probable non-acute cardiac injury or late presentation of acute injury. [facility] Interpretation and review of laboratory results Abnormal [facility] Troponin T.cardiac High sensitivity method [Mass/Vol] 30 ng/L Critically high NINF - 22 ng/L [facility] URINALYSISon 12-16-2024 BACTERIA, URINE None Seen Normal None Seen [facility] Comment on above: Order Comment: Micro scopic examination is performed on all urinalysis samples and only positive findings are reported. The test for blood on the chemical analytic portion of urinalysis may also be positive due to hemoglobinuria and myoglobinuria and if red blood cells are present they are quantified by microscopic examination. Performed By: #### 4 [id number] #### [facility] [address] [address] Amauri Barone M.D. [id number] BILIRUBIN, URINE Negative Normal Negative [facility] Comment on above: Order Comment: Micro scopic examination is performed on all urinalysis samples and only positive findings are reported. The test for blood on the chemical analytic portion of urinalysis may also be positive due to hemoglobinuria and myoglobinuria and if red blood cells are present they are quantified by microscopic examination. Performed By: #### 4 [id number] #### [facility] [address] [place] [address] Amauri Barone M.D. [id number] BLOOD, URINE Negative Normal Negative [facility] Comment on above: Order Comment: Micro scopic examination is performed on all urinalysis samples and only positive findings are reported. The test for blood on the chemical analytic portion of urinalysis may also be positive due to hemoglobinuria and myoglobinuria and if red blood cells are present they are quantified by microscopic examination. Performed By: #### 4 [id number] #### [facility] [address] [place] [address] Amauri Barone M.D. [id number] Clarity (U) Clear Normal Clear [facility] Comment on above: Order Comment: Micro scopic examination is performed on all urinalysis samples and only positive findings are reported. The test for blood on the chemical analytic portion of urinalysis may also be positive due to hemoglobinuria and myoglobinuria and if red blood cells are present they are quantified by microscopic examination. Performed By: #### 4 [id number] #### [facility] [address] [place], [place] [id number] Amauri Barone M.D. [id number] Color (U) Yellow Normal Colorless, Yellow [facility] Comment on above: Order Comment: Micro scopic examination is performed on all urinalysis samples and only positive findings are reported. The test for blood on the chemical analytic portion of urinalysis may also be positive due to hemoglobinuria and myoglobinuria and if red blood cells are present they are quantified by microscopic examination. Performed By: #### 4 [id number] #### [facility] [address] [place] [address] Amauri Barone M.D. [id number] Glucose Ql (U) Negative Normal Negative [facility] Comment on above: Order Comment: Micro scopic examination is performed on all urinalysis samples and only positive findings are reported. The test for blood on the chemical analytic portion of urinalysis may also be positive due to hemoglobinuria and myoglobinuria and if red blood cells are present they are quantified by microscopic examination. Performed By: #### 4 [id number] #### [facility] [address] [place], [place] [id number] Amauri Barone M.D. [id number] Hyaline casts LM Ql (Urine sed) 0-2 Normal 0-2 [facility] Comment on above: Order Comment: Micro scopic examination is performed on all urinalysis samples and only positive findings are reported. The test for blood on the chemical analytic portion of urinalysis may also be positive due to hemoglobinuria and myoglobinuria and if red blood cells are present they are quantified by microscopic examination. Performed By: #### 4 [id number] #### [facility] [address] [place], [place] [id number] Amauri Barone M.D. [id number] Ketones Ql (U) Negative Normal Negative [facility] Comment on above: Order Comment: Micro scopic examination is performed on all urinalysis samples and only positive findings are reported. The test for blood on the chemical analytic portion of urinalysis may also be positive due to hemoglobinuria and myoglobinuria and if red blood cells are present they are quantified by microscopic examination. Performed By: #### 4 [id number] #### [facility] [address] [place], [place] [id number] Amauri Barone M.D. [id number] Leukocyte esterase Test strip Ql (U) Negative Normal Negative [facility] Comment on above: Order Comment: Micro scopic examination is performed on all urinalysis samples and only positive findings are reported. The test for blood on the chemical analytic portion of urinalysis may also be positive due to hemoglobinuria and myoglobinuria and if red blood cells are present they are quantified by microscopic examination. Performed By: #### 4 [id number] #### [facility] [address] [place], [place] [id number] Amauri Barone M.D. [id number] NITRITE, URINE Negative Normal Negative [facility] Comment on above: Order Comment: Micro scopic examination is performed on all urinalysis samples and only positive findings are reported. The test for blood on the chemical analytic portion of urinalysis may also be positive due to hemoglobinuria and myoglobinuria and if red blood cells are present they are quantified by microscopic examination. Performed By: #### 4 [id number] #### [facility] [address] [place] [address] Amauri Barone M.D. [id number] pH (U) 8.0 [pH] High 5.0-7.0 [facility] Comment on above: Order Comment: Micro scopic examination is performed on all urinalysis samples and only positive findings are reported. The test for blood on the chemical analytic portion of urinalysis may also be positive due to hemoglobinuria and myoglobinuria and if red blood cells are present they are quantified by microscopic examination. Performed By: #### 4 [id number] #### [facility] [address] [place] [address] Amauri Barone M.D. [id number] PROTEIN, URINE Negative Normal Negative [facility] Comment on above: Order Comment: Micro scopic examination is performed on all urinalysis samples and only positive findings are reported. The test for blood on the chemical analytic portion of urinalysis may also be positive due to hemoglobinuria and myoglobinuria and if red blood cells are present they are quantified by microscopic examination. Performed By: #### 4 [id number] #### [facility] [address] [place] [address] Amauri Barone M.D. [id number] RBC LM.HPF (Urine sed) [#/Area] 1 /[HPF] Normal 0-3 [facility] Comment on above: Order Comment: Micro scopic examination is performed on all urinalysis samples and only positive findings are reported. The test for blood on the chemical analytic portion of urinalysis may also be positive due to hemoglobinuria and myoglobinuria and if red blood cells are present they are quantified by microscopic examination. Performed By: #### 4 [id number] #### [facility] [address] [place] [address] Amauri Barone M.D. [id number] Specific gravity (U) [Rel density] 1.021 Normal 1.005-1.025 [facility] Comment on above: Order Comment: Micro scopic examination is performed on all urinalysis samples and only positive findings are reported. The test for blood on the chemical analytic portion of urinalysis may also be positive due to hemoglobinuria and myoglobinuria and if red blood cells are present they are quantified by microscopic examination. Performed By: #### 4 [id number] #### [facility] [address] [place] [address] Amauri Barone M.D. [id number] UROBILINOGEN, URINE <2.0 Normal <2.0 [facility] Comment on above: Order Comment: Micro scopic examination is performed on all urinalysis samples and only positive findings are reported. The test for blood on the chemical analytic portion of urinalysis may also be positive due to hemoglobinuria and myoglobinuria and if red blood cells are present they are quantified by microscopic examination. Performed By: #### 4 4046 #### [address] [address] Amauri Barone M.D. [id number] WBC LM.HPF (Urine sed) [#/Area] 1 /[HPF] Normal 0-5 [facility] Comment on above: Order Comment: Micro scopic examination is performed on all urinalysis samples and only positive findings are reported. The test for blood on the chemical analytic portion of urinalysis may also be positive due to hemoglobinuria and myoglobinuria and if red blood cells are present they are quantified by microscopic examination. Performed By: #### 4 4046 #### [facility] [address] [place] [address] Amauri Barone M.D. [id number] URINE AEROBIC CULTUREon 10-3 0-2024 URINE AEROBIC CULTURE URINE CULTURE No Growth (<1,000 CFU/mL) Normal [facility] Comment on above: Performed By: #### 4 [id number] #### [facility] [address] [place], [place] [address] Amauri Barone M.D. [id number] UrinalysisOrdered By: Latosha Ervin on 12-16-2024 Bacteria Auto Ql (U) None Seen None Se en /hpf [facility] Bilirubin Ql (U) Negative [facility] Cl[facility] Refractometry automated (U) Clear Clear [facility] Color (U) Yellow Colorless, Yellow [facility] Glucose Auto test strip (U) [Mass/Vol] Negative Negative mg/dL [facility] Hemoglobin Auto test strip Ql (U) Negative Negative [facility] Hyaline casts Auto (Urine sed) [#/Area] 0-2 [facility] Interpretation and review of laboratory results Abnormal [facility] Ketones (U) [Mass/Vol] Negative Negative mg/dL [facility] Leukocyte esterase Auto test strip Ql (U) Negative Negative [facility] Nitrite Auto test strip Ql (U) Negative Negative [facility] pH (U) 8 [pH] High 5.0 - 7.0 [facility] Protein (U) [Mass/Vol] Negative Negative mg/dL [facility] RBC Auto (Urine sed) [#/Area] 1 [facility] Specific gravity (U) [Rel density] 1.021 1.005 - 1.025 [facility] Urobilinogen (U) [Mass/Vol] mg/dL NINF - 2.0 mg/dL [facility] WBC Auto (Urine sed) [#/Area] 1 [facility] Microscopic examination is performed on all urinalysis samples and only positive findings are reported. The test for blood on the chemical analytic portion of urinalysis may also be positive due to hemoglobinuria and myoglobinuria and if red blood cells are present they are quantified by microscopic examination. [facility] VITAMIN D, TOTAL, 25-OHon VITAMIN D 25-HYDROXY 42 ng/mL Normal 20-100 [facility] Comment on above: Order Comment: Vitam in D Expected ValuesDeficiency: 0-10Insufficiency: 10-20Sufficient: 20-100Toxicity: >100 Performed By: #### 4 [id number] #### LAB [address], [place] [address] Gonsalo Tello M.D. [id number] Vitamin D, Total, 25-OHon 25-hydroxyvitamin D [Mass/Vol] 42 ng/mL 20 - 100 ng/mL [facility] Interpretation and review of laboratory results Normal [facility] Vitamin D Expected Values Deficiency: 0-10 Insufficiency: 10-20 Sufficient: 20-100 Toxicity: >100 [facility] BLOOD CULTURE AEROBIC/ANAERO BICon 12-15-2024 BLOOD CULTURE AEROBIC/ANAEROBIC BLOOD CULTURE No Growth after 5 days Normal [facility] Comment on above: Performed By: #### 4 [id number] ####[facility] [address] [place] [address] Amauri Barone M.D. [id number] BLOOD CULTURE AEROBIC/ANAEROBIC BLOOD CULTURE No Growth after 5 days Normal [facility] Comment on above: Performed By: #### 4 [id number] #### [facility] [address] [place] [address] Amauri Barone M.D. [id number] CBC Auto Differentialon 11-18 Basophils (Bld) [#/Vol] 0.08 10*3/uL [facility] Basophils/100 WBC (Bld) 0.3 % [facility] Eosinophils (Bld) [#/Vol] 0.04 10*3/uL [facility] Eosinophils/100 WBC (Bld) 0.2 % [facility] Erythrocyte distribution width (RBC) [Entitic vol] 14 % 11.6 - 14.8 % [facility] Hematocrit (Bld) [Volume fraction] 44.3 % 41.0 - 53.0 % [facility] Hemoglobin (Bld) [Mass/Vol] 14 g/dL 13.5 - 17.5 g/dL [facility] Immature granulocytes (Bld) [#/Vol] 0.14 10*3/uL [facility] Immature granulocytes/100 WBC (Bld) 0.6 % [facility] Comment on above: The IG parameter is the percentage of metamyelocytes, myelocytes and promyelocytes. An immature granulocyte count (IG) of 1% or more suggests the possibility of infection, an IG count of 3% is very likely related to an infection. Interpretation and review of laboratory results Abnormal [facility] Lymphocytes (Bld) [#/Vol] 0.4 10*3/uL Low [facility] Lymphocytes/100 WBC (Bld) 1.7 % [facility] MCH (RBC) [Entitic mass] 29.9 pg 26.0 - 34.0 pg [facility] MCHC (RBC) [Mass/Vol] 31.6 g/dL 31.0 - 37.0 g/dL [facility] MCV (RBC) [Entitic vol] 94.7 fL 80.0 - 100.0 fL [facility] Monocytes (Bld) [#/Vol] 0.98 10*3/uL [facility] Monocytes/100 WBC (Bld) 4.1 % [facility] Neutrophils (Bld) [#/Vol] 22.31 10*3/uL [facility] Neutrophils/100 WBC (Bld) 93.1 % [facility] Nucleated RBC (Bld) [#/Vol] 0 10*3/uL [facility] Nucleated RBC/100 WBC (Bld) [Ratio] 0 % [facility] Platelet mean volume (Bld) [Entitic vol] 11.6 fL 9.4 - 12.4 fL [facility] Platelets (Bld) [#/Vol] 201 10*3/uL [facility] RBC (Bld) [#/Vol] 4.68 10*6/uL [facility] WBC (Bld) [#/Vol] 23.95 10*3/uL [facility] CBC WITH AUTO DIFFERENTIALon 12-15-2024 AUTO NRBC 0.0 % [facility] Comment on above: Performed By: #### L [id number] #### LAB [address] [address] Gonsalo Tello M.D. [id number] AUTO NRBC ABS COUNT 0.00 K/mcL Normal 0.00-0.00 [facility] Comment on above: Performed By: #### L [id number] ####[facility] [address] [address] Gonsalo Tello M.D. [id number] BASOPHILS ABSOLUTE COUNT 0.08 K/mcL Normal 0.00-0.30 [facility] Comment on above: Performed By: #### L [id number] #### LAB [address] [address] Gonsalo Tello M.D. [id number] Basophils/100 WBC (Bld) 0.3 % [facility] Comment on above: Performed By: #### L [id number] #### LAB [address] [address] Gonsalo Tello M.D. [id number] Eosinophils (Bld) [#/Vol] 0.04 10*3/uL Normal 0.00-0.50 [facility] Comment on above: Performed By: #### L [id number] #### LAB [address] [address] Gonsalo Tello M.D. [id number] Eosinophils/100 WBC (Bld) 0.2 % Normal [facility] Comment on above: Performed By: #### L [id number] #### LAB [address] [address] Gonsalo Tello M.D. [id number] Erythrocyte distribution width (RBC) [Ratio] 14.0 % Normal 11.6-14.8 [facility] Comment on above: Performed By: #### L [id number] #### LAB [address] [address] Gonsalo Tello M.D. [id number] Hematocrit (Bld) [Volume fraction] 44.3 % Normal 41.0-53.0 [facility] Comment on above: Performed By: #### L [id number] #### LAB [address] [address] Gonsalo Tello M.D. [id number] Hemoglobin (Bld) [Mass/Vol] 14.0 g/dL Normal 13.5-17.5 [facility] Comment on above: Performed By: #### L [id number] ####[facility] [address] [address] Gonsalo Tello M.D. [id number] IG ABSOLUTE 0.14 K/mcL Normal 0.00-0.30 [facility] Comment on above: Performed By: #### L [id number] #### LAB [address] [address] Gonsalo Tello M.D. [id number] IG PERCENT 0.60 % Normal [facility] Comment on above: Result Comment: The IG parameter is the percentage of metamyelocytes, myelocytes and promyelocytes. An immature granulocyte count (IG) of 1% or more suggests the possibility of infection, an IG count of 3% is very likely related to an infection. Performed By: #### L [id number] #### LAB [address] [place] [address] Gonsalo Tello M.D. [id number] Lymphocytes (Bld) [#/Vol] 0.40 10*3/uL Low 0.90-4.00 [facility] Comment on above: Performed By: #### L [id number] #### LAB [address] [address] Gonsalo Tello M.D. [id number] Lymphocytes/100 WBC (Bld) 1.7 % Normal [facility] Comment on above: Performed By: #### L [id number] #### LAB [address] [place] [address] Gonsalo Tello M.D. [id number] MCH (RBC) [Entitic mass] 29.9 pg Normal 26.0-34.0 [facility] Comment on above: Performed By: #### L [id number] #### LAB [address] [place] [address] Gonsalo Tello M.D. [id number] MCV (RBC) [Entitic vol] 94.7 fL Normal 80.0-100.0 [facility] Comment on above: Performed By: #### L [id number] #### LAB [address] [place] [address] Gonsalo Tello M.D. [id number] MEAN CORPUSCULAR HEMOGLOBIN CONC 31.6 g/dL Normal 31.0-37.0 [facility] Comment on above: Performed By: #### L [id number] #### LAB [address] [place] [address] Gonsalo Tello M.D. [id number] Monocytes (Bld) [#/Vol] 0.98 10*3/uL High 0.30-0.90 [facility] Comment on above: Performed By: #### L [id number] #### LAB [address] [address] Gonsalo Tello M.D. [id number] Monocytes/100 WBC (Bld) 4.1 % Normal [facility] Comment on above: Performed By: #### L [id number] #### LAB [address] [address] Gonsalo Tello M.D. [id number] NEUTROPHILS ABSOLUTE COUNT 22.31 K/mcL High 1.70-7.00 [facility] Comment on above: Performed By: #### L [id number] #### LAB [address] [address] Gonsalo Tello M.D. [id number] Neutrophils/100 WBC (Bld) 93.1 % [facility] Comment on above: Performed By: #### L [id number] #### LAB [address] [address] Gonsalo Tello M.D. [id number] Platelet mean volume (Bld) [Entitic vol] 11.6 fL Normal 9.4-12.4 [facility] Comment on above: Performed By: #### L [id number] #### LAB [address] [address] Gonsalo Tello M.D. [id number] Platelets (Bld) [#/Vol] 201 10*3/uL Normal 150-400 [facility] Comment on above: Performed By: #### L [id number] ####[facility] LAB [address] [address] Gonsalo Tello M.D. [id number] RBC (Bld) [#/Vol] 4.68 10*6/uL Normal 4.50-5.90 [facility] Comment on above: Performed By: #### L [id number] #### LAB [address] [address] Gonsalo Tello M.D. [id number] WBC (Bld) [#/Vol] 23.95 10*3/uL High 4.50-11.00 [facility] Comment on above: Performed By: #### L [id number] #### LAB [address] [place], [place] [address] Gonsalo Tello M.D. [id number] COMPREHENSIVE METABOLIC PANE [facility] 12-15-2024 Albumin [Mass/Vol] 4.1 g/dL Normal 3.2-5.2 [facility] Comment on above: Order Comment: [facility] has implemented the eGFR calculation approach that does not have a coefficient for race that conforms to the NKF-ASN Task Force Recommendations. Performed By: #### 4 [id number] #### [facility] [address] [place] [address] Amauri Barone M.D. [id number] ALP [Catalytic activity/Vol] 125 U/L Normal 40-150 [facility] Comment on above: Order Comment: [facility] has implemented the eGFR calculation approach that does not have a coefficient for race that conforms to the NKF-ASN Task Force Recommendations. Performed By: #### 4 [id number] #### [facility] [address] [place] [address] Amauri Barone M.D. [id number] ALT [Catalytic activity/Vol] 30 U/L Normal 0-50 U/L [facility] Comment on above: Order Comment: [facility] has implemented the eGFR calculation approach that does not have a coefficient for race that conforms to the NKF-ASN Task Force Recommendations. Performed By: #### 4 [id number] #### [facility] [address] [place] [address] Amauri Barone M.D. [id number] Anion gap [Moles/Vol] 18 mmol/L Normal 10-20 [facility] Comment on above: Order Comment: [facility] has implemented the eGFR calculation approach that does not have a coefficient for race that conforms to the NKF-ASN Task Force Recommendations. Performed By: #### 4 [id number] #### [facility] [address] [place] [address] Amauri Barone M.D. [id number] AST [Catalytic activity/Vol] 30 U/L Normal 0-50 U/L [facility] Comment on above: Order Comment: [facility] has implemented the eGFR calculation approach that does not have a coefficient for race that conforms to the NKF-ASN Task Force Recommendations. Performed By: #### 4 [id number] #### [facility] [address] [place] [address] Amauri Barone M.D. [id number] Bilirubin [Mass/Vol] 0.6 mg/dL Normal 0.0-1.3 [facility] Comment on above: Order Comment: [facility] has implemented the eGFR calculation approach that does not have a coefficient for race that conforms to the NKF-ASN Task Force Recommendations. Performed By: #### 4 [id number] #### [facility] [address] [place] [address] Amauri Barone M.D. [id number] Calcium [Mass/Vol] 9.5 mg/dL Normal 8.4-10.2 [facility] Comment on above: Order Comment: [facility] has implemented the eGFR calculation approach that does not have a coefficient for race that conforms to the NKF-ASN Task Force Recommendations. Performed By: #### 4 [id number] #### [facility] [address] [place] [address] Amauri Barone M.D. [id number] Chloride [Moles/Vol] 105 mmol/L Normal 98-108 [facility] Comment on above: Order Comment: [facility] has implemented the eGFR calculation approach that does not have a coefficient for race that conforms to the NKF-ASN Task Force Recommendations. Performed By: #### 4 [id number] #### [facility] [address] [place] [address] Amauri Barone M.D. [id number] Creatinine [Mass/Vol] 1.03 mg/dL Normal 0.80-1.30 [facility] Comment on above: Order Comment: [facility] has implemented the eGFR calculation approach that does not have a coefficient for race that conforms to the NKF-ASN Task Force Recommendations. Performed By: #### 4 [id number] #### [facility] [address] [place] [address] Amauri Barone M.D. [id number] EGFR 76 mL/min/1.73 m2 Normal >=60 [facility] Comment on above: Order Comment: [facility] has implemented the eGFR calculation approach that does not have a coefficient for race that conforms to the NKF-ASN Task Force Recommendations. Result Comment: Marv mated GFR was calculated using the 2020 CKD-EPI creatinine equation. Performed By: #### 4 [id number] #### [facility] [address] [place] [address] Amauri Barone M.D. [id number] Glucose [Mass/Vol] 126 mg/dL High 65-99 [facility] Comment on above: Order Comment: [facility] has implemented the eGFR calculation approach that does not have a coefficient for race that conforms to the NKF-ASN Task Force Recommendations. Performed By: #### 4 [id number] #### [facility] [address] [place] [address] Amauri Barone M.D. [id number] HCO3 (Bld) [Moles/Vol] 28 mmol/L Normal 21-32 [facility] Comment on above: Order Comment: [facility] has implemented the eGFR calculation approach that does not have a coefficient for race that conforms to the NKF-ASN Task Force Recommendations. Performed By: #### 4 [id number] #### [facility] [address] [place] [address] Amauri Barone M.D. [id number] Potassium [Moles/Vol] 3.8 mmol/L Normal 3.5-5.1 [facility] Comment on above: Order Comment: [facility] has implemented the eGFR calculation approach that does not have a coefficient for race that conforms to the NKF-ASN Task Force Recommendations. Performed By: #### 4 [id number] #### [facility] [address] [place] [address] Amarui Barnoe M.D. [id number] Protein [Mass/Vol] 7.3 g/dL Normal 6.0-8.0 [facility] Comment on above: Order Comment: [facility] has implemented the eGFR calculation approach that does not have a coefficient for race that conforms to the NKF-ASN Task Force Recommendations. Performed By: #### 4 [id number] #### [facility] [address] [place] [address] Amauri Barone M.D. [id number] Sodium [Moles/Vol] 147 mmol/L High 135-145 [facility] Comment on above: Order Comment: [facility] has implemented the eGFR calculation approach that does not have a coefficient for race that conforms to the NKF-ASN Task Force Recommendations. Performed By: #### 4 [id number] #### [address] [address] Amauri Barone M.D. [id number] Urea nitrogen [Mass/Vol] 31 mg/dL High 8-25 [facility] Comment on above: Order Comment: [facility] has implemented the eGFR calculation approach that does not have a coefficient for race that conforms to the NKF-ASN Task Force Recommendations. Performed By: #### 4 [id number] #### [facility] [address] [place] [address] Amauri Barone M.D. [id number] Urea nitrogen/Creatinine [Mass ratio] 30.1 mg/mg High 10.0-20.0 [facility] Comment on above: Order Comment: [facility] has implemented the eGFR calculation approach that does not have a coefficient for race that conforms to the NKF-ASN Task Force Recommendations. Performed By: #### 4 [id number] #### [facility] [address] [address] Amauri Barone M.D. [id number] COVID-19/INFLUENZA A,B MOLEC Manny 12-15-2024 SARS-CoV-2 (COVID-19) Ab IA Ql SARS-COV-2 (FLORINDA) Not Detected INFLUENZA A (FLORINDA) Not Detected INFLUENZA B (FLORINDA) Not Detected Normal Not Detected [facility] Comment on above: Performed By: #### L [id number] #### [facility] LAB [address], [place] [address] Gonsalo Tello M.D. [id number] Comprehensive metabolic 2000 panelon 12-15-2024 Albumin [Mass/Vol] 4.1 g/dL 3.2 - 5.2 g/dL [facility] ALP [Catalytic activity/Vol] 125 U/L 40 - 150 U/L [facility] ALT [Catalytic activity/Vol] 30 U/L 0 - 50 U/L [facility] Anion gap [Moles/Vol] 18 mmol/L 10 - 2 0 mmol/L [facility] AST [Catalytic activity/Vol] 30 U/L 0 - 50 U/L [facility] Bilirubin [Mass/Vol] 0.6 mg/dL 0.0 - 1 .3 mg/dL [facility] Calcium [Mass/Vol] 9.5 mg/dL 8.4 - 10. 2 mg/dL [facility] Chloride [Moles/Vol] 105 mmol/L 98 - 10 8 mmol/L [facility] Creatinine [Mass/Vol] 1.03 mg/dL 0.80 - 1.30 mg/dL [facility] GFR/1.73 sq M.predicted CKD-EPI (S/P/Bld) [Vol rate/Area] 76 - PINF [facility] Comment on above: Estimated GFR was ca lculated using the 2020 CKD-EPI creatinine equation. Glucose [Mass/Vol] 126 mg/dL High 65 - 99 mg/dL [facility] [Moles/Vol] 28 mmol/L 21 - 32 mmol/L [facility] Interpretation and review of laboratory results Abnormal [facility] Potassium [Moles/Vol] 3.8 mmol/L 3.5 - 5.1 mmol/L [facility] Protein [Mass/Vol] 7.3 g/dL 6.0 - 8.0 g/dL [facility] Sodium [Moles/Vol] 147 mmol/L High 135 - 145 mmol/L [facility] Urea nitrogen [Mass/Vol] 31 mg/dL High 8 - 25 mg/dL [facility] Urea nitrogen/Creatinine [Mass ratio] 30.1 mg/mg High 10.0 - 20.0 [facility] has implemented the eGFR calculation approach that does not have a coefficient for race that conforms to the NKF-ASN Task Force Recommendations. [facility] ED Prov Noteon 12-15-2024 ED Prov Note [facility] EMERGENCY DEPARTMENT ATTENDING NOTE: NAME: Amy Sun CSN: [id number] 74 y.o. PCP: Ulices Clark DO History: Chief Complaint: Fever HPI: The history was obtained from the patient. Amy is a 74 y.o. male who presents with a chief complaint of Fever. The patient has a past medical history of tongue cancer status post chemo with feeding tube. Patient currently in remission for several years. He also has a history of COPD, hypertension, hyperlipidemia, recurrent pneumonias presents from home for fever, tachypnea, and hypotension. Patient's states that the patient was recently diagnosed with MRSA from a sputum culture that was performed at his most recent visit and was started on linezolid and Augmentin orally. Despite these medications patient has been having worsening fatigue confusion weakness and lethargy. Patient's states patient has a chronic cough due to mild sputum aspiration but it seems to be worse than normal. PMHx: 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 Chronic kidney disease (CKD) stage G1/A2, glomerular filtration rate (GFR) equal to or greater than 90 mL/min/1.73 square meter and albuminuria creatinine ratio between 30-299 mg/g COPD (chronic obstructive pulmonary disease) (HCC) ED (erectile dysfunction) Edema leg bilateral GERD (gastroesophageal reflux disease) Hepatic steatosis Hyperlipidemia Hypertension Insomnia Lung disorder Migraine without aura and without status migrainosus, not intractable 09/25/2023 Prediabetes PMSx: Past Surgical History: Procedure Laterality Date ABDOMINAL SURGERY CATARACT EXTRACTION BILATERAL W/ ANTERIOR VITRECTOMY CATARACT EXTRACTION BILATERAL W/ ANTERIOR VITRECTOMY Bilateral CT COLONOSCOPY 03/25/2022 CT COLONOSCOPY LAPAROSCOPIC INGUINAL HERNIA REPAIR [address] Holder for tongue cancer PEG TUBE PLACEMENT 04/04/2023 VASECTOMY FAM. Hx: Family History Problem Relation Age of Onset Stroke Father Heart disease Father Coronary artery disease Father Diabetes Sister Coronary artery disease Brother SOC. Hx: Social History [1] MEDs: Previous Medications Medication Sig apixaban (Eliquis) 5 mg Tab 1 (one) tablet (5 mg total) by Per G Tube route 2 (two) times a day . aspirin 81 MG EC tablet 1 (one) tablet (81 mg total) by Other route every morning Per G tube . aspirin-acetaminophen- caffeine (EXCEDRIN MIGRAINE) 250-250-65 mg per tablet 1 (one) tablet by Per G Tube route every 6 (six) hours as needed for pain . cyanocobalamin, vitamin B-12, 2,500 mcg Tab 1 (one) tablet (2,500 mcg total) by Per G Tube route nightly . doxazosin (CARDURA) 4 MG tablet 1 (one) tablet (4 mg total) by Per G Tube route nightly . famotidine (PEPCID) 20 MG tablet 1 (one) tablet (20 mg total) by Per G Tube route 2 (two) times a day . finasteride (PROSCAR) 5 mg tablet 1 (one) tablet (5 mg total) by Per G Tube route nightly . fluticasone propionate (FLONASE) 50 mcg/actuation nasal spray Instill 2 (two) sprays into each nostril daily . guaiFENesin (MUCINEX) 600 mg 12 hr tablet 2 (two) tablets (1,200 mg total) by Other route every 12 (twelve) hours as needed for congestion Per G tube . Lactobacillus rhamnosus GG (CULTURELLE) 10 billion cell capsule 1 (one) capsule by Per G Tube route every morning . propylene glycol/PF (SYSTANE PRO PF OPHT) Administer 1 drop to both eyes as needed . roflumilast (DALIRESP) 500 mcg tablet 1 (one) tablet (500 mcg total) by Per G Tube route daily in the afternoon . sertraline (ZOLOFT) 50 MG tablet Take 1 (one) tablet (50 mg total) by mouth daily . SUMAtriptan (IMITREX) 50 MG tablet Take 1 (one) tablet (50 mg total) by mouth every 2 (two) hours as needed for migraine Max of 200 mg in 24hrs, do not treat more than 3 times a week . umeclidinium-vilantero L 62.5-25 mcg/actuation DsDv Inhale 1 Inhalation daily . ALL: Allergies[2] ROS: Review of Systems Positives and pertinent negatives as per HPI. All other systems were reviewed and are negative. Physical Exam: Patient Vitals for the past 24 hrs: BP Temp Temp src Pulse Resp SpO2 Weight 12/15/24 2300 (!) 83/75 -- -- 70 15 93 % -- 12/15/24 2245 (!) 87/69 -- -- 67 (!) 27 93 % -- 12/15/24 2145 95/65 -- -- 68 (!) 23 94 % -- 12/15/242114 (!) 88/62 -- -- 68 (!) 25 95 % -- 12/15/242044 (!) 79/63 -- -- 68 (!) 24 96 % -- 12/15/242029 (!) 74/57 -- -- 74 (!) 28 93 % -- 12/15/242014 (!) 80/61 -- -- 81 (!) 34 91 % -- 12/15/242011 (!) 80/61 -- -- 77 (!) 26 93 % -- 12/15/242010 -- -- -- -- -- -- 81.6 kg (180 lb) 12/15/242002 (!) 62/49 97.5 degrees F (36.4 degrees C) Oral 97 16 (!) 85 % -- Physical Exam Vitals and nursing note reviewed. Constitutional: General: He is awake. Appearance: He is ill-appearing and toxic-appearing. HENT: Head: Normocephalic and atraumatic. Nose: (more content not included)... Normal [facility] Influenza virus A and B RNA and SARS-CoV-2 (COVID-19) N gene panel ROBERTA+probe (Resp)Ordered By: Ines Cisneros on 12-15-2024 FLUAV RNA ROBERTA+probe Ql (Unsp spec) Not detected Not Detected [facility] FLUBV RNA ROBERTA+probe Ql (Unsp spec) Not detected Not Detected [facility] Interpretation and review of laboratory results Normal [facility] SARS-CoV-2 (COVID-19) RNA ROBERTA+probe Ql (Resp) Not detected Not Detected [facility] LACTIC ACID, PLASMAon 2024 LACTIC ACID, PLASMA 3.5 mmol/L High 0.6-2.0 [facility] Comment on above: Performed By: #### 4 [id number] #### [facility] [address] [place], [place] [id number] Amauri Barone M.D. [id number] Lactate [Moles/Vol]on 2024 Interpretation and review of laboratory results Abnormal [facility] Lactic Acid, Plasmaon 2024 Lactate [Moles/Vol] 3.5 mmol/L High 0.6 - 2. 0 mmol/L [facility] MRSA DNA AMPLIFIED PROBEon 1 MRSA DNA AMPLIFIED PROBE Negative Normal Not Detected, MRSA NEGATIVE [facility] Comment on above: Performed By: #### 4 [id number] #### [facility] [address] [place] [address] Amauri Barone M.D. [id number] MRSA DNA Amplified Probeon 1 MRSA DNA ROBERTA+probe Ql (Unsp spec) Negative Not Detected, MRSA NEGATIVE [facility] MRSA DNA ROBERTA+probe Ql (Unsp spec)on 12-15-2024 Interpretation and review of laboratory results Normal [facility] No Panel Informationon 12-15 Extra Tube Hold for add-ons. [facility] Comment on above: Auto resulted. [facility] Obtain venous blood gases an d performon 12-15-2024 [facility] POC VENOUS BLOOD GAS PANEL-P ULLeanne - Divina 12-15-2024 BASE EXCESS, VENOUS 5.7 mmol/L High -2.0-2.0 [facility] CALCIUM IONIZED 4.7 mg/dL Normal 4.5-5.3 [facility] CARBOXYHEMOGLOBIN 2.3 % of total Hb High <=1.5 [facility] Comment on above: Result Comment: Refe rence Ranges: Suburban Non-smokers: <1.5% Smokers: 1.5-5.0% Heavy Smokers: 5.0-9.0% Chloride [Moles/Vol] 106 mmol/L Normal 98-108 [facility] FIO2 21 Normal [facility] Glucose [Mass/Vol] 123 mg/dL High 65-99 [facility] HCO3 (Bld) [Moles/Vol] 31.4 mmol/L High 24.0-28.0 [facility] Hematocrit (Bld) [Volume fraction] 44.3 % Normal 41.0-53.0 [facility] Hemoglobin (Bld) [Mass/Vol] 14.4 g/dL Normal 13.5-17.5 [facility] LACTIC ACID, WHOLE BLOOD 3.0 mmol/L High 0.6-2.0 [facility] METHEMOGLOBIN 0.3 % Normal 0.0-2.0 [facility] O2HB 71.3 % Normal No established reference range [facility] Oxygen saturation in Blood 73.3 % High 40.0-70.0 [facility] PCO2 VENOUS 48.6 mm Hg Normal 41.0-51.0 [facility] PH VENOUS 7.42 Normal 7.32-7.42 [facility] PO2 VENOUS 39 mm Hg Normal 25-40 [facility] Potassium [Moles/Vol] 3.8 mmol/L Normal 3.5-5.1 [facility] Sodium [Moles/Vol] 150 mmol/L High 135-145 [facility] alth SPECIMEN SOURCE RADIANCE Not specified Normal [facility] POC Venous Blood Gas Panel-P [facility] 12-15-2024 Base excess Calc (BldV) [Moles/Vol] 5.7 mmol/L High -2.0 - 2.0 mmol/L [facility] Calcium.ionized [Mass/Vol] 4.7 mg/dL 4.5 - 5.3 mg/dL [facility] Carboxyhemoglobin (BldA) [Mass fraction] 2.3 High [facility] Comment on above: Reference Ranges: [place]urban Non-smokers: <1.5% Smokers: 1.5-5.0% Heavy Smokers: 5.0-9.0% CO2 (BldV) [Partial pressure] 48.6 mm[Hg] [facility] Glucose post fast [Mass/Vol] 123 mg/dL High 65 - 99 mg/dL [facility] Hematocrit (BldA) [Volume fraction] 44.3 % 41.0 - 53.0 % [facility] Inhaled oxygen concentration 21 % [facility] Interpretation and review of laboratory results Abnormal [facility] Lactate [Moles/Vol] 3 mmol/L High 0.6 - 2. 0 mmol/L [facility] Methemoglobin (BldA) [Mass fraction] 0.3 % 0.0 - 2.0 % [facility] Oxygen (BldV) [Partial pressure] 39 mm[Hg] [facility] Oxygen saturation in Venous blood 73.3 % High 40.0 - 70.0 % [facility] Oxyhemoglobin (BldA) [Mass fraction] 71.3 % -100.0 - 101.0 % [facility] pH (BldV) 7.42 [pH] 7.32 - 7.42 [facility] Specimen source Nom (Unsp spec) Not specified [facility] TROPONIN (ONCE)on 12-15-2024 BASELINE TROPONIN T NG/L 26 ng/L Off scale high <=22 [facility] Comment on above: Performed By: #### [id number] #### LAB [address], [place] [address] Gonsalo Tello M.D. [id number] TROPONIN T INTERPRETATION Possible acute cardiac injury. Normal [facility] Comment on above: Performed By: #### 4 [id number] #### LAB [address], [place] [address] Gonsalo Tello M.D. [id number] Troponin (Once)Ordered By: Magi Degroot on 12-15-2024 Interpretation and review of laboratory results Abnormal [facility] Troponin T 26 ng/L Critically high NINF - 22 ng/L [facility] Troponin T Interpretation Possible acute cardiac injury. [facility] XR CHEST PA/APon 12-15-2024 XR CHEST PA/AP EXAMINATION: XR CHEST PA/AP 12/15/2024 10:16 pm HISTORY: ORDERING SYSTEM PROVIDED HISTORY: cough, TECHNOLOGIST PROVIDED HISTORY: Illness/Other Reason for exam: cough Cancer History: tongue cancer Surgery, RadiationHistory: yes Encounter Type: Initial Additional signs and symptoms: fever ORDERING SYSTEM PROVIDED DIAGNOSIS CODES: COMPARISON: PA chest from 11/17/2024. FINDINGS: Trachea is midline. Mediastinum is not widened. Heart size is unremarkable. There. The slight infiltrate in the right middle lung zone but noticeably improved from the prior study. No effusion or nodule or pneumothorax is noted. Slight bibasilar atelectasis is noted. IMPRESSION: 1. Slight but noticeably improved infiltrate in the mid right lung field. 2. Slight bibasilar atelectasis. Workstation ID: [id number] Dictated by: TASHA ODELL on FriDec 15, 2024 10:36:33 PM EDT Transcribed by: TASHA ODELL on FriDec 15, 2024 10:36:33 PM EDT Finalized by: TASHA ODELL on FriDec 15, 2024 10:36:33 PM EDT [facility] Comment on above: Order Comment: Injur y/Trauma or Illness?:Illness/OtherHow long have you had these symptoms (acute/chronic)?:AcuteReason for exam?:coughHistory of cancer?:tongue cancerSurgeries, chemotherapy, or radiation?:yesType of Exam?:InitialAdditional signs and symptoms?:fever XR Chest PA and Abdomen APon 12-15-2024 1. Slight but noticeably improved infiltrate in the mid right lung field. 2. Slight bibasilar atelectasis. Workstation ID: [id number] [employer] EXAMINATION: XR CHEST PA/AP 12/15/2024 10:16 pm HISTORY: ORDERING SYSTEM PROVIDED HISTORY: cough, TECHNOLOGIST PROVIDED HISTORY: Illness/Other Reason for exam: cough Cancer History: tongue cancer Surgery, RadiationHistory: yes Encounter Type: Initial Additional signs and symptoms: fever ORDERING SYSTEM PROVIDED DIAGNOSIS CODES: COMPARISON: PA chest from 11/17/2024. FINDINGS: Trachea is midline. Mediastinum is not widened. Heart size is unremarkable. There. The slight infiltrate in the right middle lung zone but noticeably improved from the prior study. No effusion or nodule or pneumothorax is noted. Slight bibasilar atelectasis is noted. [employer] Tasha Odell, DO - 12/15/2024 EXAMINATION: XR CHEST PA/AP 12/15/2024 10:16 pm HISTORY: ORDERING SYSTEM PROVIDED HISTORY: cough, TECHNOLOGIST PROVIDED HISTORY: Illness/Other Reason for exam: cough Cancer History: tongue cancer Surgery, RadiationHistory: yes Encounter Type: Initial Additional signs and symptoms: fever ORDERING SYSTEM PROVIDED DIAGNOSIS CODES: COMPARISON: PA chest from 11/17/2024. FINDINGS: Trachea is midline. Mediastinum is not widened. Heart size is unremarkable. There. The slight infiltrate in the right middle lung zone but noticeably improved from the prior study. No effusion or nodule or pneumothorax is noted. Slight bibasilar atelectasis is noted. IMPRESSION: 1. Slight but noticeably improved infiltrate in the mid right lung field. 2. Slight bibasilar atelectasis. Workstation ID: [id number] [facility] Radiology Study observation (narrative) [facility] XR Chest PA and Abdomen APOr dered By: Tasha Odell on 12-15-2024 [facility] Work Phone: CNPFalguni 12-10-2024 KATINAN Telephone (PULMWS) AMY SUN ([id number]) 1950 M Date Time Provider Department 12/10/24 SARAH FERNANDEZ PULJESUS During your visit today, we recorded the following information about you: Sarah Fernandez APRN.KATINA 12/10/2024 4:44 PM Signed Called but received voicemail for both home and cell phone. VM left to call back for this message. Patients sputum culture continues to grow MRSA which is the bacteria he grew during recent hospitalization. MRSA is susceptible to Linezolid and recommend further treatment with Linezolid twice a day for 10 days. The prescription was sent to [facility] in [place]. There is interaction with Linezolid, Zoloft and Imitrex and these medications should be held while taking Linezolid. I did have a chance to review his chest CT but his most recent chest xray has not resulted to compare. Will try to call early next week once results are available. If he develops worsening cough or respiratory symptoms, fevers, chills, lethargy or other sign of infection, recommend further evaluation in the ED. Sarah Fernandez APRN.Monica Salas MA 12/10/2024 4:59 PM Signed Patient and spouse called back. Message from Sarah Fernandez given. They verbalized understanding. Allergies As of Date: 12/10/2024 Noted Allergy Reaction BUDESONIDE 07/23/2024 10 - Anaphylaxis Comments: Throat constriction REVEFENACIN 07/23/2024 10 - Anaphylaxis Comments: Throat reconstruction IPRATROPIUM-ALBUTEROL 07/23/2024 5 - Intolerance Comments: Right side of face gets numb Date Reviewed: 12/08/2024 Reviewed by: Sarah Fernandez APRN.PROJECT FACILITATOR - Fully Assessed Primary Visit Diagnosis:Pneumonia due to methicillin resistant Staphylococcus aureus (MRSA), unspecified laterality, unspecified part of lung (HCC) [J15.212] Order(s):linezolid (ZYVOX) 600 mg tabletTake 1 tablet by mouth two times a day for 10 days.Disp: 20 tabletRfl: 0 Prescriptions as of 12/10/2024 - linezolid (ZYVOX) 600 mg tablet Take 1 tablet by mouth two times a day for 10 days. - guaiFENesin (MUCINEX) 600 mg 12 hr tablet 1,200 mg two times a day as needed. - lactobacillus rhamnosus (CULTURELLE) 10 billion cell capsule Take 1 capsule by mouth once daily. - roflumilast (DALIRESP) 500 mcg tab Take 1 tablet by mouth once daily. - erythromycin (ROMYCIN) 5 mg/gram (0.5 %) ophthalmic ointment Use 1 application in both eyes two times a week. - doxazosin (CARDURA) 4 mg tablet Take 4 mg by mouth daily at bedtime. - finasteride (PROSCAR) 5 mg tablet Take 5 mg by mouth once daily. - SUMAtriptan (IMITREX) 50 mg tablet Take 50 mg by mouth every 2 hours as needed. - tiotropium (SPIRIVA) 18 mcg inhalation capsule Inhale 18 mcg as instructed once daily. - aspirin, enteric coated (ASPIRIN, ENTERIC COATED) 81 mg EC tablet Take 81 mg by mouth once daily. - cyanocobalamin (VITAMIN B-12) 500 mcg tablet Take 500 mcg by mouth once daily. - fluticasone (FLONASE) 50 mcg/actuation nasal spray Use 2 sprays in each nostril once daily. - umeclidinium-vilantero l (ANORO ELLIPTA) 62.5-25 mcg/actuation inhaler Inhale 1 inhalation as instructed once daily. - apixaban (ELIQUIS) 5 mg tab(s) Take 5 mg by mouth two times a day. - famotidine (PEPCID) 20 mg tablet Take 20 mg by mouth. - nut tx, lact-reduced, iron (BOOST VHC) 0.09-2.25 gram-kcal/mL liqd 52 mL by FEEDING TUBE route continuous. Adminster with infinity feeding pump. Flush with an additional 33oz of water daily (divided). - iv contrast (will be provided with radiology test) CT Chest W -Inject, intravenously, once for 1 dose.No IV access, insert saline lock prior to the beginning of sedation, infusion, injection of imaging exam. Discontinue saline lock post exam. If Pt. has a central line or IVAD, may access for administration according to line specific nursing protocol. Once exam is complete flush line and de-access according to line specific nursing protocol in the CT contrast administration guidelines link. - iv contrast (will be provided with radiology test) CT ABD/PEL -Inject, intravenously, once for 1 dose.No IV access, insert saline lock prior to the beginning of sedation, infusion, injection of imaging exam. Discontinue saline lock post exam. If Pt. has a central line or IVAD, may access for administration according to line specific nursing protocol. Once exam is complete flush line and de-access according to line specific nursing protocol in the CT contrast administration guidelines link. - enteric contrast (will be provided with radiology test) For CT ABD/PEL W IVCON Routine order Administer, As Directed One Time Only, via Oral, Rectal, both Oral and Rectal, Enteric Tube, Stoma or Indwelling Catheter, Enteric Contrast as designated per enteric contrast guidelines - nutritional supplement-fiber (COMPLEAT 1.5) 0.07 gram-1.5 kcal/mL liqd 80ml/hr of Comple (more content not included)... Normal [facility] [place] Bacteria Spec Resp Culton Bacteria identified Respiratory culture Nom (Unsp spec) ORGANISM ID: 1 Many Methicillin-RESISTANT Staphylococcus aureus (MRSA) [place] PBP2A SA CULTURE COLONY TEST: PBP2a was detected by an immunochromatographic assay. PBP2a is encoded for by the mecA gene. This isolate is methicillin-resistant. ORGANISM ID: 2 Rare Escherichia coli Insignificant colony count. No further workup. ORGANISM ID: 3 Few normal respiratory jillian GRAM STAIN: Moderate Mixed oral jillian No Polymorphonuclear Leukocytes ORGANISM ID: 1 (METHICILLIN RESISTANT STAPHYLOCOCCUS AUREUS) -- ANTIBIOTIC INTERPRETATION AKASH STATUS REFERENCE RANGE -- Oxacillin R >=4 F Susceptible <=2 , Resistant >2 Oxacillin resistant Staphylococci are resistant to all beta-lactam antibiotics (except new cephalosporins with anti-MRSA activity i.e. ceftaroline) Erythromycin R >=8 F Susceptible <=0.5 , Intermediate >.5 , Resistant >4 Clindamycin S 0.25 F Susceptible <=0.5 , Intermediate >.5 , Resistant >2 Testing for inducible clindamycin resistance was performed. Trimeth sulfameth R >=320 F Susceptible <=40 , Resistant >40 Vancomycin S 1 F Susceptible <=2 , Intermediate >2 , Resistant >8 Linezolid S 2 F Susceptible <=4 , Resistant >4 Rifampin S <=0.5 F Susceptible <=1 , Intermediate >1 , Resistant >2 Rifampin should not be used alone for antimicrobial therapy. Levofloxacin R >=8 F Susceptible <=1 , Intermediate >1 , Resistant >2 Tetracycline R >=16 F Susceptible <=4 , Intermediate >4 , Resistant >8 Doxycycline I 8 F Susceptible <=4 , Intermediate >4 , Resistant >8 Abnormal [facility] [place] Comment on above: Performed By: #### 3 [id number] ####[facility] MA[facility] LABCLIA [id number] [address] [place] CNOVon 12-08-2024 CNOV Office Visit (PULMWS ) AMY SUN ([id number]) 1950 M Date Time Provider Department 12/08/24 9:30 AM SARAH FERNANDEZ During your visit today, we recorded the following information about you: Pulse Respiration Blood pressure Weight 59/minute 16/minute 120/78 84.4 kg Sarah Fernandez, [employer]OL[employer] AND [employer]AXI INSTRUCTOR.PROJECT FACILITATOR 12/08/2024 12:40 PM Signed Pulmonary Medicine Patients name: Amy Iverson PCP: Ulices Clark DO CC: follow-up HPI: Amy Sun is a 74 year old male former 90+ pack year smoker, quitting in 2008 with PMH significant for head and neck cancer 2008 (base of tongue) s/p chemoradiation, erthrocytosis, HLD, emphysema, moderate COPD, bronchiectasis, dysphagia s/p PEG tube, chronic hypoxemic respiratory failure, aspiration. Recent history notable for hospital admission in June with bilateral PNA. Chest CT pertinent for multiple irregular patchy opacities in LLL and GGO in RLL. New patient 09/16/24 with c/o cough with significant mucus production. Has a hx of recurrent aspiration. Inhaled therapy increased to LABA/LAMA. Current inhaled therapy with Anoro Ellipta and PRN Albuterol. Previously with multiple intolerances to inhaled therapy, including nebulized treatments. He presents today for follow-up with his . Labs following his last visit pertinent for immunoglobulins and Alpha 1 negative. He was started on flutter valve for significant bronchiectasis but his states they forgot to pick it up. Review of chest CT for lung nodules suspected to be inflammatory. He had a sputum culture which showed Ecoli and was treated with Cipro. Since that time, he did not have any change in symptoms. He ended up being hospitalized from 11/17-11/22 at [facility] in [place]. His states he did not have his typical symptoms he normally presents with prior to taking him to the hospital. He had only become lethargic. Was treated for PNA, septic shock and acute hypoxic respiratory failure. Sputum cultures grew MRSA. Was treated with IV Vanco and discharged home on Augmentin and Linezolid for 7 days which is now complete. He has been NPO d/t history of aspiration PNA with trying to eat ice chips or popsicles. Since being home from the hospital, he and his state he is not quite back to baseline. He continues to have cough productive of thick sputum. Sputum can be white or dark in color. Rare hemoptysis. No wheezing. Denies significant dyspnea. No fevers, chills, or night sweats. His states that Flonase is helpful for cough as he chronically experiences sinus congestion and PND. Also has frequent headaches which she feels his sinuses contribute to. Finds Flonase to be helpful. Has previously seen ENT with his cancer history but not for his sinuses. DME: Luci PAST MEDICAL HISTORY Diagnosis Date Aspiration into respiratory tract Bronchiectasis (HCC) Dysphagia Emphysema lung (HCC) Epiretinal membrane (ERM) of left eye Erythrocytosis 09/15/2014 Hyperlipemia 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) 12/02/2008 Nausea with vomiting PCO (posterior capsular opacification), left Pseudophakia, both eyes S/P percutaneous endoscopic gastrostomy (PEG) tube placement (HCC) Secondary and unspecified malignant neoplasm of lymph nodes of head, face, and neck 12/02/2008 Vitreous floaters Allergies: Budesonide Anaphylaxis Comment:Throat constriction Revefenacin Anaphylaxis Comment:Throat reconstruction Ipratropium-Albuter* Intolerance Comment:Right side of face gets numb Medication List Accurate as of December 08, 2024 8:03 AM. If you have any questions, ask your nurse or doctor. CONTINUE taking these medications apixaban 5 mg tab(s) Commonly known as: ELIQUIS aspirin, enteric coated 81 mg EC tablet Commonly known as: ASPIRIN, ENTERIC COATED BOOST VHC 0.09-2.25 gram-kcal/mL Liqd Generic drug: nut tx, lact-reduced, iron 52 mL by FEEDING TUBE route continuous. Adminster with infinity feeding pump. Flush with an additional 33oz of water daily (divided). COMPLEAT 1.5 0.07 gram-1.5 kcal/mL Liqd Generic drug: nutritional supplement 80ml/hr of Compleat 1.5 continuously for 24 hours. Use 1 carton of Benecalorie daily. Flush with 200ml water four times per day. cyanocobalamin 500 mcg tablet Commonly known as: VITAMIN B-12 doxazosin 4 mg tablet Commonly known as: CARDURA enteric contrast (will be provided with radiology test) For CT ABD/PEL W IVCON Routine order Administer, As Directed One Time Only, via Oral, Rectal, both Oral and Rectal, Enteric Tube, Stoma or Indwelling Catheter, Enteric Contrast as designated per enteric contrast guidelines erythromycin 5 mg/gram (0.5 %) ophthalmic ointment Commonly known as: ROMYCIN Use 1 application in both eyes two times a week. famotidine 20 mg tablet Commonly known as: PEPCID fi (more content not included)... Normal [facility] ([id number]) 1950 [place] Date Time Provider Department 12/08/24 SARAH FERNANDEZ During your visit today, we recorded the following information about you: Mei Chamorro 12/08/2024 12:53 PM Signed Patient was in this morning for appointment advised to get a flutter value and they have tried at [facility], [facility] and [facility] in [place] and nobody has this or willing to order this. Please advise the spouse Christa. Lisa Torres LPN 12/08/2024 2:42 PM Signed Will send to [facility]. Spouse notified and states she receives patients enteral feeding supplies from [facility] [place]. Lisa Torres LPN Allergies As of Date: 12/08/2024 Noted Allergy Reaction BUDESONIDE 07/23/2024 10 - Anaphylaxis Comments: Throat constriction REVEFENACIN 07/23/2024 10 - Anaphylaxis Comments: Throat reconstruction IPRATROPIUM-ALBUTEROL 07/23/2024 5 - Intolerance Comments: Right side of face gets numb Date Reviewed: 12/08/2024 Reviewed by: Sarah Fernandez APRN.PROJECT FACILITATOR - Fully Assessed Reason for Visit: Patient Question [1477] Prescriptions as of 12/08/2024 - guaiFENesin (MUCINEX) 600 mg 12 hr tablet 1,200 mg two times a day as needed. - lactobacillus rhamnosus (CULTURELLE) 10 billion cell capsule Take 1 capsule by mouth once daily. - roflumilast (DALIRESP) 500 mcg tab Take 1 tablet by mouth once daily. - erythromycin (ROMYCIN) 5 mg/gram (0.5 %) ophthalmic ointment Use 1 application in both eyes two times a week. - doxazosin (CARDURA) 4 mg tablet Take 4 mg by mouth daily at bedtime. - finasteride (PROSCAR) 5 mg tablet Take 5 mg by mouth once daily. - SUMAtriptan (IMITREX) 50 mg tablet Take 50 mg by mouth every 2 hours as needed. - tiotropium (SPIRIVA) 18 mcg inhalation capsule Inhale 18 mcg as instructed once daily. - aspirin, enteric coated (ASPIRIN, ENTERIC COATED) 81 mg EC tablet Take 81 mg by mouth once daily. - cyanocobalamin (VITAMIN B-12) 500 mcg tablet Take 500 mcg by mouth once daily. - fluticasone (FLONASE) 50 mcg/actuation nasal spray Use 2 sprays in each nostril once daily. - umeclidinium-vilantero l (ANORO ELLIPTA) 62.5-25 mcg/actuation inhaler Inhale 1 inhalation as instructed once daily. - apixaban (ELIQUIS) 5 mg tab(s) Take 5 mg by mouth two times a day. - famotidine (PEPCID) 20 mg tablet Take 20 mg by mouth. - nut tx, lact-reduced, iron (BOOST VHC) 0.09-2.25 gram-kcal/mL liqd 52 mL by FEEDING TUBE route continuous. Adminster with infinity feeding pump. Flush with an additional 33oz of water daily (divided). - iv contrast (will be provided with radiology test) CT Chest W -Inject, intravenously, once for 1 dose.No IV access, insert saline lock prior to the beginning of sedation, infusion, injection of imaging exam. Discontinue saline lock post exam. If Pt. has a central line or IVAD, may access for administration according to line specific nursing protocol. Once exam is complete flush line and de-access according to line specific nursing protocol in the CT contrast administration guidelines link. - iv contrast (will be provided with radiology test) CT ABD/PEL -Inject, intravenously, once for 1 dose.No IV access, insert saline lock prior to the beginning of sedation, infusion, injection of imaging exam. Discontinue saline lock post exam. If Pt. has a central line or IVAD, may access for administration according to line specific nursing protocol. Once exam is complete flush line and de-access according to line specific nursing protocol in the CT contrast administration guidelines link. - enteric contrast (will be provided with radiology test) For CT ABD/PEL W IVCON Routine order Administer, As Directed One Time Only, via Oral, Rectal, both Oral and Rectal, Enteric Tube, Stoma or Indwelling Catheter, Enteric Contrast as designated per enteric contrast guidelines - nutritional supplement-fiber (COMPLEAT 1.5) 0.07 gram-1.5 kcal/mL liqd 80ml/hr of Compleat 1.5 continuously for 24 hours. Use 1 carton of Benecalorie daily. Flush with 200ml water four times per day. - sertraline (ZOLOFT) 25 mg tablet Take 1 tablet by mouth once daily. 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 Normal [facility] [place] XR CHEST 2V FRONTAL/LATon XR CHEST 2V FRONTAL/LAT * * *Final Report* * * DATE OF EXAM: Dec 08 2024 10:37AM [id number] - XR CHEST 2V FRONTAL/LAT / PROCEDURE REASON: multiple diagnoses * * * * Physician Interpretation * * * * EXAMINATION: CHEST RADIOGRAPH (2 VIEW FRONTAL and LATERAL) CLINICAL HISTORY: Pneumonia due to methicillin resistant Staphylococcus aureus (MRSA), unspecified laterality, unspecified part of lung (HCC) Bronchiectasis without complication (HCC) MQ: [id number]_6 EXAM DATE/TIME: 12/08/2024 10:37 AM COMPARISON: 08/16/2024 RESULT: Lines, tubes, and devices: None. Lungs and pleura: No consolidation. No lung mass. No pleural effusion. No pneumothorax. Minimal nodularity seen in the lateral right mid lung which could represent bronchiectasis or interstitial type nodules from inflammation/infection . Cardiomediastinal silhouette: Normal cardiomediastinal silhouette. Bones and soft tissues: Unremarkable. IMPRESSION: Subtle interstitial prominence in the lateral right mid lung which could represent bronchiectasis and bronchiolitis. Correlation with clinical symptoms is recommended. Authorization Coordinator: RAYO Transcribe Date/Time: Dec 10 2024 5:06P Dictated by : STEVENSON DE ANDA MD This examination was interpreted and the report reviewed and electronically signed by: STEVENSON DE ANDA MD on Dec 10 2024 5:07PM EST [id number] Normal [facility] [place] CBC Auto Differentialon 10-0 Basophils (Bld) [#/Vol] 0.04 10*3/uL [facility] Basophils/100 WBC (Bld) 0.7 % [facility] Eosinophils (Bld) [#/Vol] 0.48 10*3/uL [facility] Eosinophils/100 WBC (Bld) 8.6 % [facility] Erythrocyte distribution width (RBC) [Entitic vol] 13.1 % 11.6 - 14.8 % [facility] Hematocrit (Bld) [Volume fraction] 36.5 % Low 41.0 - 53.0 % [facility] Hemoglobin (Bld) [Mass/Vol] 11.6 g/dL Low 13.5 - 17.5 g/dL [facility] Immature granulocytes (Bld) [#/Vol] 0.05 10*3/uL [facility] Immature granulocytes/100 WBC (Bld) 0.9 % [facility] Comment on above: The IG parameter is the percentage of metamyelocytes, myelocytes and promyelocytes. An immature granulocyte count (IG) of 1% or more suggests the possibility of infection, an IG count of 3% is very likely related to an infection. Interpretation and review of laboratory results Abnormal [facility] Lymphocytes (Bld) [#/Vol] 0.52 10*3/uL Low [facility] Lymphocytes/100 WBC (Bld) 9.4 % [facility] MCH (RBC) [Entitic mass] 29.7 pg 26.0 - 34.0 pg [facility] MCHC (RBC) [Mass/Vol] 31.8 g/dL 31.0 - 37.0 g/dL [facility] MCV (RBC) [Entitic vol] 93.6 fL 80.0 - 100.0 fL [facility] Monocytes (Bld) [#/Vol] 0.58 10*3/uL [facility] Monocytes/100 WBC (Bld) 10.5 % [facility] Neutrophils (Bld) [#/Vol] 3.88 10*3/uL [facility] Neutrophils/100 WBC (Bld) 69.9 % [facility] Nucleated RBC (Bld) [#/Vol] 0 10*3/uL [facility] Nucleated RBC/100 WBC (Bld) [Ratio] 0 % [facility] Platelet mean volume (Bld) [Entitic vol] 11.2 fL 9.4 - 12.4 fL [facility] Platelets (Bld) [#/Vol] 188 10*3/uL [facility] RBC (Bld) [#/Vol] 3.9 10*6/uL Low [facility] alth WBC (Bld) [#/Vol] 5.55 10*3/uL [facility] [place] CBC WITH AUTO DIFFERENTIALon 11-22-2024 AUTO NRBC 0.0 % Normal [facility] Comment on above: Performed By: #### L [id number] ####[facility] [address], [place] [address] Gonsalo Tello M.D. [id number] AUTO NRBC ABS COUNT 0.00 K/mcL Normal 0.00-0.00 [facility] Comment on above: Performed By: #### L [id number] #### LAB [address] [place] [address] Gonsalo Tello M.D. [id number] BASOPHILS ABSOLUTE COUNT 0.04 K/mcL Normal 0.00-0.30 [facility] Comment on above: Performed By: #### L [id number] #### LAB [address] [address] Gonsalo Tello M.D. [id number] Basophils/100 WBC (Bld) 0.7 % Normal [facility] Comment on above: Performed By: #### L [id number] #### LAB [address] [address] Gonsalo Tello M.D. [id number] Eosinophils (Bld) [#/Vol] 0.48 10*3/uL Normal 0.00-0.50 [facility] Comment on above: Performed By: #### L [id number] #### LAB [address] [place] [address] Gonsalo Tello M.D. [id number] Eosinophils/100 WBC (Bld) 8.6 % Normal [facility] Comment on above: Performed By: #### L [id number] #### LAB [address] [place] [address] Gonsalo Tello M.D. [id number] Erythrocyte distribution width (RBC) [Ratio] 13.1 % Normal 11.6-14.8 [facility] Comment on above: Performed By: #### L [id number] #### LAB [address] [address] Gonsalo Tello M.D. [id number] Hematocrit (Bld) [Volume fraction] 36.5 % Low 41.0-53.0 [facility] Comment on above: Performed By: #### L [id number] #### LAB [address] [place] [address] Gonsalo Tello M.D. [id number] Hemoglobin (Bld) [Mass/Vol] 11.6 g/dL Low 13.5-17.5 [facility] Comment on above: Performed By: #### L [id number] #### LAB [address] [address] Gonsalo Tello M.D. [id number] IG ABSOLUTE 0.05 K/mcL Normal 0.00-0.30 [facility] Comment on above: Performed By: #### L [id number] #### LAB [address] [place] [address] Gonsalo Tello M.D. [id number] IG PERCENT 0.90 % Normal [facility] Comment on above: Result Comment: The IG parameter is the percentage of metamyelocytes, myelocytes and promyelocytes. An immature granulocyte count (IG) of 1% or more suggests the possibility of infection, an IG count of 3% is very likely related to an infection. Performed By: #### L [id number] #### LAB [address] [address] Gonsalo Tello M.D. [id number] Lymphocytes (Bld) [#/Vol] 0.52 10*3/uL Low 0.90-4.00 [facility] Comment on above: Performed By: #### L [id number] #### LAB [address] [place] [address] Gonslao Tello M.D. [id number] Lymphocytes/100 WBC (Bld) 9.4 % Normal [facility] Comment on above: Performed By: #### L [id number] #### LAB [address] [place] [address] Gonsalo Tello M.D. [id number] MCH (RBC) [Entitic mass] 29.7 pg Normal 26.0-34.0 [facility] Comment on above: Performed By: #### L [id number] #### LAB [address] [address] Gonsalo Tello M.D. [id number] MCV (RBC) [Entitic vol] 93.6 fL Normal 80.0-100.0 [facility] Comment on above: Performed By: #### L [id number] #### LAB [address] [place] [address] Gonsalo Tello M.D. [id number] MEAN CORPUSCULAR HEMOGLOBIN CONC 31.8 g/dL Normal 31.0-37.0 [facility] Comment on above: Performed By: #### L [id number] #### LAB [address] [place] [address] Gonsalo Tello M.D. [id number] Monocytes (Bld) [#/Vol] 0.58 10*3/uL Normal 0.30-0.90 [facility] Comment on above: Performed By: #### L [id number] #### LAB [address] [place] [address] Gonsalo Tello M.D. [id number] Monocytes/100 WBC (Bld) 10.5 % Normal [facility] Comment on above: Performed By: #### L [id number] #### LAB [address] [place] [address] Gonsalo Tello M.D. [id number] NEUTROPHILS ABSOLUTE COUNT 3.88 K/mcL Normal 1.70-7.00 [facility] Comment on above: Performed By: #### L [id number] #### LAB [address] [place] [address] Gonsalo Tello M.D. [id number] Neutrophils/100 WBC (Bld) 69.9 % Normal [facility] Comment on above: Performed By: #### L [id number] #### LAB [address] [place] [address] Gonsalo Tello M.D. [id number] Platelet mean volume (Bld) [Entitic vol] 11.2 fL Normal 9.4-12.4 [facility] Comment on above: Performed By: #### L [id number] #### LAB [address] [place] [address] Gonsalo Tello M.D. [id number] Platelets (Bld) [#/Vol] 188 10*3/uL Normal 150-400 [facility] Comment on above: Performed By: #### L [id number] ####[facility] [address] [place], [place] [address] Gonsalo Tello M.D. [id number] RBC (Bld) [#/Vol] 3.90 10*6/uL Low 4.50-5.90 [facility] Comment on above: Performed By: #### L [id number] ####[facility] [address] [place] [address] Gonsalo Tello M.D. [id number] WBC (Bld) [#/Vol] 5.55 10*3/uL Normal 4.50-11.00 [facility] Comment on above: Performed By: #### L [id number] ####[facility] [address] [place] [address] Gonsalo Tello M.D. [id number] COMPREHENSIVE METABOLIC PANE Pj 11-22-2024 Albumin [Mass/Vol] 3.1 g/dL Low 3.2-5.2 [facility] Comment on above: Order Comment: [facility] has implemented the eGFR calculation approach that does not have a coefficient for race that conforms to the NKF-ASN Task Force Recommendations. Performed By: #### 4 4046 #### [facility] [address] [place] [address] Amauri Barone M.D. [id number] ALP [Catalytic activity/Vol] 129 U/L Normal 40-150 [facility] Comment on above: Order Comment: [facility] has implemented the eGFR calculation approach that does not have a coefficient for race that conforms to the NKF-ASN Task Force Recommendations. Performed By: #### 4 4046 #### [facility] [address] [place] [address] Amauri Barone M.D. [id number] ALT [Catalytic activity/Vol] 24 U/L Normal 0-50 U/L [facility] Comment on above: Order Comment: [facility] has implemented the eGFR calculation approach that does not have a coefficient for race that conforms to the NKF-ASN Task Force Recommendations. Performed By: #### 4 4046 #### [facility] [address] [place] [address] Amauri Barone M.D. [id number] Anion gap [Moles/Vol] 14 mmol/L Normal 10-20 [facility] Comment on above: Order Comment: [facility] has implemented the eGFR calculation approach that does not have a coefficient for race that conforms to the NKF-ASN Task Force Recommendations. Performed By: #### 4 4046 #### [facility] [address] [place] [address] Amauri Barone M.D. [id number] AST [Catalytic activity/Vol] 26 U/L Normal 0-50 U/L [facility] Comment on above: Order Comment: [facility] has implemented the eGFR calculation approach that does not have a coefficient for race that conforms to the NKF-ASN Task Force Recommendations. Performed By: #### 4 4046 #### [facility] [address] [place] [address] Amauri Barone M.D. [id number] Bilirubin [Mass/Vol] 0.2 mg/dL Normal 0.0-1.3 [facility] Comment on above: Order Comment: [facility] has implemented the eGFR calculation approach that does not have a coefficient for race that conforms to the NKF-ASN Task Force Recommendations. Performed By: #### 4 4046 #### [facility] [address] [place] [address] Amauri Barone M.D. [id number] Calcium [Mass/Vol] 9.2 mg/dL Normal 8.4-10.2 [facility] Comment on above: Order Comment: [facility] has implemented the eGFR calculation approach that does not have a coefficient for race that conforms to the NKF-ASN Task Force Recommendations. Performed By: #### 4 4046 #### [facility] [address] [place] [address] Amauri Barone M.D. [id number] Chloride [Moles/Vol] 107 mmol/L Normal 98-108 [facility] Comment on above: Order Comment: [facility] has implemented the eGFR calculation approach that does not have a coefficient for race that conforms to the NKF-ASN Task Force Recommendations. Performed By: #### 4 4046 #### [facility] [address] [place] [address] Amauri Barone M.D. [id number] Creatinine [Mass/Vol] 0.68 mg/dL Low 0.80-1.30 [facility] Comment on above: Order Comment: [facility] has implemented the eGFR calculation approach that does not have a coefficient for race that conforms to the NKF-ASN Task Force Recommendations. Performed By: #### 4 4046 #### [facility] [address] [place], [place] [id number] Amauri Barone M.D. [id number] EGFR 98 mL/min/1.73 m2 Normal >=60 [facility] Comment on above: Order Comment: [facility] has implemented the eGFR calculation approach that does not have a coefficient for race that conforms to the NKF-ASN Task Force Recommendations. Result Comment: Marv mated GFR was calculated using the 2020 CKD-EPI creatinine equation. Performed By: #### 4 4046 #### [facility] [address] [place] [address] Amauri Barone M.D. [id number] Glucose [Mass/Vol] 147 mg/dL High 65-99 [facility] Comment on above: Order Comment: [facility] has implemented the eGFR calculation approach that does not have a coefficient for race that conforms to the NKF-ASN Task Force Recommendations. Performed By: #### 4 4046 #### [facility] [address] [place] [address] Amauri Barone M.D. [id number] HCO3 (Bld) [Moles/Vol] 28 mmol/L Normal 21-32 [facility] Comment on above: Order Comment: [facility] has implemented the eGFR calculation approach that does not have a coefficient for race that conforms to the NKF-ASN Task Force Recommendations. Performed By: #### 4 4046 #### [facility] [address] [place] [address] Amauri Barone M.D. [id number] Potassium [Moles/Vol] 3.8 mmol/L Normal 3.5-5.1 [facility] Comment on above: Order Comment: [facility] has implemented the eGFR calculation approach that does not have a coefficient for race that conforms to the NKF-ASN Task Force Recommendations. Performed By: #### 4 4046 #### [facility] [address] [place], [place] [id number] Amauri Barone M.D. [id number] Protein [Mass/Vol] 5.9 g/dL Low 6.0-8.0 [facility] Comment on above: Order Comment: [facility] has implemented the eGFR calculation approach that does not have a coefficient for race that conforms to the NKF-ASN Task Force Recommendations. Performed By: #### 4 4046 #### [facility] [address] [place] [address] Amauri Barone M.D. [id number] Sodium [Moles/Vol] 145 mmol/L Normal 135-145 [facility] Comment on above: Order Comment: [facility] has implemented the eGFR calculation approach that does not have a coefficient for race that conforms to the NKF-ASN Task Force Recommendations. Performed By: #### 4 4046 #### [facility] [address] [place], [place] [id number] Amauri Barone M.D. [id number] Urea nitrogen [Mass/Vol] 22 mg/dL Normal 8-25 [facility] Comment on above: Order Comment: [facility] has implemented the eGFR calculation approach that does not have a coefficient for race that conforms to the NKF-ASN Task Force Recommendations. Performed By: #### 4 4046 #### [facility] [address] [place] [address] Amauri Barone M.D. [id number] Urea nitrogen/Creatinine [Mass ratio] 32.4 mg/mg High 10.0-20.0 [facility] Comment on above: Order Comment: [facility] has implemented the eGFR calculation approach that does not have a coefficient for race that conforms to the NKF-ASN Task Force Recommendations. Performed By: #### 4 4046 #### [facility] [address] [place] [address]363 Amauri Barone M.D. [id number] Comprehensive metabolic 2000 panelon 11-22-2024 Albumin [Mass/Vol] 3.1 g/dL Low 3.2 - 5.2 g/dL [facility] ALP [Catalytic activity/Vol] 129 U/L 40 - 150 U/L [facility] ALT [Catalytic activity/Vol] 24 U/L 0 - 50 U/L [facility] Anion gap [Moles/Vol] 14 mmol/L 10 - 2 0 mmol/L [facility] AST [Catalytic activity/Vol] 26 U/L 0 - 50 U/L [facility] Bilirubin [Mass/Vol] 0.2 mg/dL 0.0 - 1 .3 mg/dL [facility] Calcium [Mass/Vol] 9.2 mg/dL 8.4 - 10. 2 mg/dL [facility] Chloride [Moles/Vol] 107 mmol/L 98 - 10 8 mmol/L [facility] Creatinine [Mass/Vol] 0.68 mg/dL Low 0.80 - 1.30 mg/dL [facility] GFR/1.73 sq M.predicted CKD-EPI (S/P/Bld) [Vol rate/Area] 98 - PINF [facility] Comment on above: Estimated GFR was ca lculated using the 2020 CKD-EPI creatinine equation. Glucose [Mass/Vol] 147 mg/dL High 65 - 99 mg/dL [facility] HCO3 [Moles/Vol] 28 mmol/L 21 - 32 mmol/L [facility] Interpretation and review of laboratory results Abnormal [facility] Potassium [Moles/Vol] 3.8 mmol/L 3.5 - 5.1 mmol/L [facility] Protein [Mass/Vol] 5.9 g/dL Low 6.0 - 8.0 g/dL [facility] Sodium [Moles/Vol] 145 mmol/L 135 - 145 mmol/L [facility] Urea nitrogen [Mass/Vol] 22 mg/dL 8 - 25 mg/dL [facility] Urea nitrogen/Creatinine [Mass ratio] 32.4 mg/mg High 10.0 - 20.0 [facility] has implemented the eGFR calculation approach that does not have a coefficient for race that conforms to the NKF-ASN Task Force Recommendations. [facility] MAGNESIUM LEVELon 11-22-2024 Magnesium [Mass/Vol] 2.1 mg/dL Normal 1.6-2.4 [facility] Comment on above: Performed By: #### 4 6109 ####[facility] [address] [place], [place] [address] Gonsalo Tello M.D. [id number] Magnesium Levelon 11-22-2024 Magnesium [Mass/Vol] 2.1 mg/dL 1.6 - 2 .4 mg/dL [facility] No Panel Informationon 11-22 Interpretation and review of laboratory results Normal [facility] PHOSPHORUSon 11-22-2024 Phosphate [Mass/Vol] 3.6 mg/dL Normal 2.3-3.7 [facility] Comment on above: Performed By: #### 4 6299 ####[facility] [address] [place] [address] Gonsalo Tello M.D. [id number] Phosphoruson 11-22-2024 Phosphate [Mass/Vol] 3.6 mg/dL 2.3 - 3 .7 mg/dL [facility] VANCOMYCIN LEVEL, RANDOMon 1 VANCOMYCIN RANDOM 19.2 mcg/mL Normal [facility] Comment on above: Order Comment: Injur y/Trauma or Illness?:Illness/Other How long have you had these symptoms (acute/chronic)?:Unknown Reason for exam?:memory problems over the last 2 years: hx of tongue cancer: Type of Exam?:Unknown Additional signs and symptoms?:n Performed By: #### 4 6651 ####[address] [address] Gonsalo Tello M.D. [id number] Vancomycin Level, Randomon 1 Vancomycin [Mass/Vol] 19.2 mcg/mL [facility] Vancomycin [Mass/Vol]on As of 11/2021 vancomycin dosing for [facility] inpatients will be done by Bayesian dosing software rather than off traditional trough values. Please contact the site specific inpatient pharmacy before making dose changes off of trough values alone for admitted patients. No established reference range. [facility] Bacteria identified Aer cx N om (Sput)Ordered By: Katina Bridges on 11-21-2024 Interpretation and review of laboratory results Abnormal [facility] Microscopic observation Gram stain Nom (Sput) Many WBC [facility] Microscopic observation Gram stain Nom (Sput) Few Epithelial Cells [facility] Microscopic observation Gram stain Nom (Sput) Moderate Mixed Jillian [facility] CBC Auto Differentialon Basophils (Bld) [#/Vol] 0.03 10*3/uL [facility] Basophils/100 WBC (Bld) 0.5 % [facility] Eosinophils (Bld) [#/Vol] 0.3 10*3/uL [facility] Eosinophils/100 WBC (Bld) 4.6 % [facility] Erythrocyte distribution width (RBC) [Entitic vol] 13 % 11.6 - 14.8 % [facility] Hematocrit (Bld) [Volume fraction] 36.7 % Low 41.0 - 53.0 % [facility] Hemoglobin (Bld) [Mass/Vol] 11.9 g/dL Low 13.5 - 17.5 g/dL [facility] Immature granulocytes (Bld) [#/Vol] 0.04 10*3/uL [facility] Immature granulocytes/100 WBC (Bld) 0.6 % [facility] Comment on above: The IG parameter is the percentage of metamyelocytes, myelocytes and promyelocytes. An immature granulocyte count (IG) of 1% or more suggests the possibility of infection, an IG count of 3% is very likely related to an infection. Interpretation and review of laboratory results Abnormal [facility] Lymphocytes (Bld) [#/Vol] 0.54 10*3/uL Low [facility] Lymphocytes/100 WBC (Bld) 8.3 % [facility] MCH (RBC) [Entitic mass] 30.2 pg 26.0 - 34.0 pg [facility] MCHC (RBC) [Mass/Vol] 32.4 g/dL 31.0 - 37.0 g/dL [facility] MCV (RBC) [Entitic vol] 93.1 fL 80.0 - 100.0 fL [facility] Monocytes (Bld) [#/Vol] 0.58 10*3/uL [facility] Monocytes/100 WBC (Bld) 8.9 % [facility] Neutrophils (Bld) [#/Vol] 5.03 10*3/uL [facility] Neutrophils/100 WBC (Bld) 77.1 % [facility] Nucleated RBC (Bld) [#/Vol] 0 10*3/uL [facility] Nucleated RBC/100 WBC (Bld) [Ratio] 0 % [facility] Platelet mean volume (Bld) [Entitic vol] 11.2 fL 9.4 - 12.4 fL [facility] Platelets (Bld) [#/Vol] 163 10*3/uL [facility] RBC (Bld) [#/Vol] 3.94 10*6/uL Low [facility] WBC (Bld) [#/Vol] 6.52 10*3/uL [facility] CBC WITH AUTO DIFFERENTIALon 11-21-2024 AUTO NRBC 0.0 % [facility] Comment on above: Performed By: #### L [id number] ####[facility] [address] [place], [place] [address] Gonsalo Tello M.D. [id number] AUTO NRBC ABS COUNT 0.00 K/mcL Normal 0.00-0.00 [facility] Comment on above: Performed By: #### L [id number] ####[facility] [address] [place], [place] [address] Gonsalo Tello M.D. [id number] BASOPHILS ABSOLUTE COUNT 0.03 K/mcL Normal 0.00-0.30 [facility] Comment on above: Performed By: #### L [id number] ####[facility] [address] [place], [place] [address] Gonsalo Tello M.D. [id number] Basophils/100 WBC (Bld) 0.5 % [facility] Comment on above: Performed By: #### L [id number] #### LAB [address] [place] [address] Gonsalo Tello M.D. [id number] Eosinophils (Bld) [#/Vol] 0.30 10*3/uL Normal 0.00-0.50 [facility] Comment on above: Performed By: #### L [id number] #### LAB [address] [place] [address] Gonsalo Tello M.D. [id number] Eosinophils/100 WBC (Bld) 4.6 % Normal [facility] Comment on above: Performed By: #### L [id number] #### LAB [address] [place] [address] Gonsalo Tello M.D. [id number] Erythrocyte distribution width (RBC) [Ratio] 13.0 % Normal 11.6-14.8 [facility] Comment on above: Performed By: #### L [id number] #### LAB [address] [place] [address] Gonsalo Tello M.D. [id number] Hematocrit (Bld) [Volume fraction] 36.7 % Low 41.0-53.0 [facility] Comment on above: Performed By: #### L [id number] #### LAB [address] [place] [address] Gonsalo Tello M.D. [id number] Hemoglobin (Bld) [Mass/Vol] 11.9 g/dL Low 13.5-17.5 [facility] Comment on above: Performed By: #### L [id number] #### LAB [address] [place] [address] Gonsalo Tello M.D. [id number] IG ABSOLUTE 0.04 K/mcL Normal 0.00-0.30 [facility] Comment on above: Performed By: #### L [id number] #### LAB [address] [place] [address] Gonsalo Tello M.D. [id number] IG PERCENT 0.60 % Normal [facility] Comment on above: Result Comment: The IG parameter is the percentage of metamyelocytes, myelocytes and promyelocytes. An immature granulocyte count (IG) of 1% or more suggests the possibility of infection, an IG count of 3% is very likely related to an infection. Performed By: #### L [id number] #### LAB [address] [place] [address] Gonsalo Tello M.D. [id number] Lymphocytes (Bld) [#/Vol] 0.54 10*3/uL Low 0.90-4.00 [facility] Comment on above: Performed By: #### L [id number] #### LAB [address] [place] [address] Gonsalo Tello M.D. [id number] Lymphocytes/100 WBC (Bld) 8.3 % Normal [facility] Comment on above: Performed By: #### L [id number] #### LAB [address] [place] [address] Gonsalo Tello M.D. [id number] MCH (RBC) [Entitic mass] 30.2 pg Normal 26.0-34.0 [facility] Comment on above: Performed By: #### L [id number] #### LAB [address] [place] [address] Gonsalo Tello M.D. [id number] MCV (RBC) [Entitic vol] 93.1 fL Normal 80.0-100.0 [facility] Comment on above: Performed By: #### L [id number] #### LAB [address] [place] [address] Gonsalo Tello M.D. [id number] MEAN CORPUSCULAR HEMOGLOBIN CONC 32.4 g/dL Normal 31.0-37.0 [facility] Comment on above: Performed By: #### L [id number] #### LAB [address] [place] [address] Gonsalo Tello M.D. [id number] Monocytes (Bld) [#/Vol] 0.58 10*3/uL Normal 0.30-0.90 [facility] Comment on above: Performed By: #### L [id number] ####[facility] [address] [place] [address] Gonsalo Tello M.D. [id number] Monocytes/100 WBC (Bld) 8.9 % Normal [facility] Comment on above: Performed By: #### L [id number] #### LAB [address] [place] [address] Gonsalo Tello M.D. [id number] NEUTROPHILS ABSOLUTE COUNT 5.03 K/mcL Normal 1.70-7.00 [facility] Comment on above: Performed By: #### L [id number] #### LAB [address] [place] [address] Gonsalo Tello M.D. [id number] Neutrophils/100 WBC (Bld) 77.1 % Normal [facility] Comment on above: Performed By: #### L [id number] #### LAB [address] [place] [address] Gonsalo Tello M.D. [id number] Platelet mean volume (Bld) [Entitic vol] 11.2 fL Normal 9.4-12.4 [facility] Comment on above: Performed By: #### L [id number] #### LAB [address] [place] [address] Gonsalo Tello M.D. [id number] Platelets (Bld) [#/Vol] 163 10*3/uL Normal 150-400 [facility] Comment on above: Performed By: #### L [id number] #### LAB [address] [place] [address] Gonsalo Tello M.D. [id number] RBC (Bld) [#/Vol] 3.94 10*6/uL Low 4.50-5.90 [facility] Comment on above: Performed By: #### L [id number] #### LAB [address] [place] [address] Gonsalo Tello M.D. [id number] WBC (Bld) [#/Vol] 6.52 10*3/uL Normal 4.50-11.00 [facility] Comment on above: Performed By: #### L [id number] #### LAB [address] [place], [place] [address] Gonsalo Tello M.D. [id number] COMPREHENSIVE METABOLIC PANE Pj 11-21-2024 Albumin [Mass/Vol] 3.1 g/dL Low 3.2-5.2 [facility] Comment on above: Order Comment: Injur y/Trauma or Illness?:Illness/Other How long have you had these symptoms (acute/chronic)?:Acute Reason for exam?:fever, sob, hx of hypotention, cancer Type of Exam?:Initial Additional signs and symptoms?:. Performed By: #### 4 6126 #### LAB [address] [place] [address] Gonsalo Tello M.D. [id number] ALP [Catalytic activity/Vol] 128 U/L Normal 40-150 [facility] Comment on above: Order Comment: Injur y/Trauma or Illness?:Illness/Other How long have you had these symptoms (acute/chronic)?:Acute Reason for exam?:fever, sob, hx of hypotention, cancer Type of Exam?:Initial Additional signs and symptoms?:. Performed By: #### 4 6126 #### LAB [address] [place] [id number] Gonsalo Tello M.D. [id number] ALT [Catalytic activity/Vol] 20 U/L Normal 0-50 U/L [facility] Comment on above: Order Comment: Injur y/Trauma or Illness?:Illness/Other How long have you had these symptoms (acute/chronic)?:Acute Reason for exam?:fever, sob, hx of hypotention, cancer Type of Exam?:Initial Additional signs and symptoms?:. Performed By: #### 4 6126 ####[facility] [address] [place] [address] Gonsalo Tello M.D. [id number] Anion gap [Moles/Vol] 14 mmol/L Normal 10-20 [facility] Comment on above: Order Comment: Injur y/Trauma or Illness?:Illness/Other How long have you had these symptoms (acute/chronic)?:Acute Reason for exam?:fever, sob, hx of hypotention, cancer Type of Exam?:Initial Additional signs and symptoms?:. Performed By: #### 4 6138 #### LAB [address] [place] [address] Gonsalo Tello M.D. [id number] AST [Catalytic activity/Vol] 25 U/L Normal 0-50 U/L [facility] Comment on above: Order Comment: Injur y/Trauma or Illness?:Illness/Other How long have you had these symptoms (acute/chronic)?:Acute Reason for exam?:fever, sob, hx of hypotention, cancer Type of Exam?:Initial Additional signs and symptoms?:. Performed By: #### 4 6126 #### LAB [address] [place] [address] Gonsalo Tello M.D. [id number] Bilirubin [Mass/Vol] 0.3 mg/dL Normal 0.0-1.3 [facility] Comment on above: Order Comment: Injur y/Trauma or Illness?:Illness/Other How long have you had these symptoms (acute/chronic)?:Acute Reason for exam?:fever, sob, hx of hypotention, cancer Type of Exam?:Initial Additional signs and symptoms?:. Performed By: #### 4 6126 #### LAB [address] [place] [address] Gonsalo Tello M.D. [id number] Calcium [Mass/Vol] 8.9 mg/dL Normal 8.4-10.2 [facility] Comment on above: Order Comment: Injur y/Trauma or Illness?:Illness/Other How long have you had these symptoms (acute/chronic)?:Acute Reason for exam?:fever, sob, hx of hypotention, cancer Type of Exam?:Initial Additional signs and symptoms?:. Performed By: #### 4 6126 #### LAB [address] [place] [address] Gonsalo Tello M.D. [id number] Chloride [Moles/Vol] 107 mmol/L Normal 98-108 [facility] Comment on above: Order Comment: Injur y/Trauma or Illness?:Illness/Other How long have you had these symptoms (acute/chronic)?:Acute Reason for exam?:fever, sob, hx of hypotention, cancer Type of Exam?:Initial Additional signs and symptoms?:. Performed By: #### 4 6146 #### LAB [address] [place] [address] Gonsalo Tello M.D. [id number] Creatinine [Mass/Vol] 0.58 mg/dL Low 0.80-1.30 [facility] Comment on above: Order Comment: Injur y/Trauma or Illness?:Illness/Other How long have you had these symptoms (acute/chronic)?:Acute Reason for exam?:fever, sob, hx of hypotention, cancer Type of Exam?:Initial Additional signs and symptoms?:. Performed By: #### 4 6126 #### LAB [address] [place] [address] Gonsalo Tello M.D. [id number] EGFR 102 mL/min/1.73 m2 Normal >=60 [facility] Comment on above: Order Comment: Injur y/Trauma or Illness?:Illness/Other How long have you had these symptoms (acute/chronic)?:Acute Reason for exam?:fever, sob, hx of hypotention, cancer Type of Exam?:Initial Additional signs and symptoms?:. Result Comment: Marv mated GFR was calculated using the 2020 CKD-EPI creatinine equation. Performed By: #### 4 6147 #### LAB [address] [place] [address] Gonsalo Tello M.D. [id number] Glucose [Mass/Vol] 133 mg/dL High 65-99 [facility] Comment on above: Order Comment: Injur y/Trauma or Illness?:Illness/Other How long have you had these symptoms (acute/chronic)?:Acute Reason for exam?:fever, sob, hx of hypotention, cancer Type of Exam?:Initial Additional signs and symptoms?:. Performed By: #### 4 6127 #### LAB [address] [address] Gonsalo Tello M.D. [id number] HCO3 (Bld) [Moles/Vol] 27 mmol/L Normal 21-32 [facility] Comment on above: Order Comment: Injur y/Trauma or Illness?:Illness/Other How long have you had these symptoms (acute/chronic)?:Acute Reason for exam?:fever, sob, hx of hypotention, cancer Type of Exam?:Initial Additional signs and symptoms?:. Performed By: #### 4 6126 #### LAB [address] [address] Gonsalo Tello M.D. [id number] Potassium [Moles/Vol] 3.7 mmol/L Normal 3.5-5.1 [facility] Comment on above: Order Comment: Injur y/Trauma or Illness?:Illness/Other How long have you had these symptoms (acute/chronic)?:Acute Reason for exam?:fever, sob, hx of hypotention, cancer Type of Exam?:Initial Additional signs and symptoms?:. Performed By: #### 4 6126 #### LAB [address] [address] Gonsalo Tello M.D. [id number] Protein [Mass/Vol] 5.9 g/dL Low 6.0-8.0 [facility] Comment on above: Order Comment: Injur y/Trauma or Illness?:Illness/Other How long have you had these symptoms (acute/chronic)?:Acute Reason for exam?:fever, sob, hx of hypotention, cancer Type of Exam?:Initial Additional signs and symptoms?:. Performed By: #### 4 6126 #### LAB [address] [address] Gonsalo Tello M.D. [id number] Sodium [Moles/Vol] 144 mmol/L Normal 135-145 [facility] Comment on above: Order Comment: Injur y/Trauma or Illness?:Illness/Other How long have you had these symptoms (acute/chronic)?:Acute Reason for exam?:fever, sob, hx of hypotention, cancer Type of Exam?:Initial Additional signs and symptoms?:. Performed By: #### 4 6126 ####[facility] LAB [address] [address] Gonsalo Tello M.D. [id number] Urea nitrogen [Mass/Vol] 18 mg/dL Normal 8-25 [facility] Comment on above: Order Comment: Injur y/Trauma or Illness?:Illness/Other How long have you had these symptoms (acute/chronic)?:Acute Reason for exam?:fever, sob, hx of hypotention, cancer Type of Exam?:Initial Additional signs and symptoms?:. Performed By: #### 4 6126 #### LAB [address] [place], [place] [address] Gonsalo Tello M.D. [id number] Urea nitrogen/Creatinine [Mass ratio] 31.0 mg/mg High 10.0-20.0 [facility] Comment on above: Order Comment: Injur y/Trauma or Illness?:Illness/Other How long have you had these symptoms (acute/chronic)?:Acute Reason for exam?:fever, sob, hx of hypotention, cancer Type of Exam?:Initial Additional signs and symptoms?:. Performed By: #### 4 6126 #### LAB [address] [address] Gonsalo Tello M.D. [id number] Comprehensive metabolic 2000 panelon 11-21-2024 Albumin [Mass/Vol] 3.1 g/dL Low 3.2 - 5.2 g/dL [facility] ALP [Catalytic activity/Vol] 128 U/L 40 - 150 U/L [facility] ALT [Catalytic activity/Vol] 20 U/L 0 - 50 U/L [facility] Anion gap [Moles/Vol] 14 mmol/L 10 - 2 0 mmol/L [facility] AST [Catalytic activity/Vol] 25 U/L 0 - 50 U/L [facility] Bilirubin [Mass/Vol] 0.3 mg/dL 0.0 - 1 .3 mg/dL [facility] Calcium [Mass/Vol] 8.9 mg/dL 8.4 - 10. 2 mg/dL [facility] Chloride [Moles/Vol] 107 mmol/L 98 - 10 8 mmol/L [facility] Creatinine [Mass/Vol] 0.58 mg/dL Low 0.80 - 1.30 mg/dL [facility] GFR/1.73 sq M.predicted CKD-EPI (S/P/Bld) [Vol rate/Area] 102 - PINF [facility] Comment on above: Estimated GFR was ca lculated using the 2020 CKD-EPI creatinine equation. Glucose [Mass/Vol] 133 mg/dL High 65 - 99 mg/dL [facility] HCO3 [Moles/Vol] 27 mmol/L 21 - 32 mmol/L [facility] Interpretation and review of laboratory results Abnormal [facility] Potassium [Moles/Vol] 3.7 mmol/L 3.5 - 5.1 mmol/L [facility] Protein [Mass/Vol] 5.9 g/dL Low 6.0 - 8.0 g/dL [facility] Sodium [Moles/Vol] 144 mmol/L 135 - 145 mmol/L [facility] Urea nitrogen [Mass/Vol] 18 mg/dL 8 - 25 mg/dL [facility] Urea nitrogen/Creatinine [Mass ratio] 31 mg/mg High 10.0 - 20.0 [facility] has implemented the eGFR calculation approach that does not have a coefficient for race that conforms to the NKF-ASN Task Force Recommendations. [facility] MAGNESIUM LEVELon 11-21-2024 Magnesium [Mass/Vol] 1.9 mg/dL Normal 1.6-2.4 [facility] Comment on above: Performed By: #### 4 6608 #### [facility] [address] [place], [place] [address] Gonsalo Tello M.D. [id number] Magnesium Levelon 11-21-2024 Magnesium [Mass/Vol] 1.9 mg/dL 1.6 - 2 .4 mg/dL [facility] No Panel Informationon 11-21 Interpretation and review of laboratory results Normal [facility] PHOSPHORUSon 11-21-2024 Phosphate [Mass/Vol] 3.3 mg/dL Normal 2.3-3.7 [facility] Comment on above: Performed By: #### 4 6608 #### [facility] [address] [place], [place] [address] Gonsalo Tello M.D. [id number] Phosphoruson 11-21-2024 Phosphate [Mass/Vol] 3.3 mg/dL 2.3 - 3 .7 mg/dL [facility] Sputum Aerobic CultureOrdere d By: Katina Bridges on 11-21-2024 Bacteria identified Aer cx Nom (Sput) Staphylococcus aureus Abnormal [facility] Comment on above: Methicillin Resist ant Staphylococcus aureus (MRSA) detected by PBP2a testing Methicillin Resistant Staphylococcus aureus (MRSA) CBC Auto Differentialon 100 Basophils (Bld) [#/Vol] 0.02 10*3/uL [facility] Basophils/100 WBC (Bld) 0.2 % [facility] Eosinophils (Bld) [#/Vol] 0.18 10*3/uL [facility] Eosinophils/100 WBC (Bld) 1.5 % [facility] Erythrocyte distribution width (RBC) [Entitic vol] 13.2 % 11.6 - 14.8 % [facility] Hematocrit (Bld) [Volume fraction] 31.4 % Low 41.0 - 53.0 % [facility] Hemoglobin (Bld) [Mass/Vol] 10 g/dL Low 13.5 - 17.5 g/dL [facility] Immature granulocytes (Bld) [#/Vol] 0.07 10*3/uL [facility] Immature granulocytes/100 WBC (Bld) 0.6 % [facility] Comment on above: The IG parameter is the percentage of metamyelocytes, myelocytes and promyelocytes. An immature granulocyte count (IG) of 1% or more suggests the possibility of infection, an IG count of 3% is very likely related to an infection. Interpretation and review of laboratory results Abnormal [facility] Lymphocytes (Bld) [#/Vol] 0.71 10*3/uL Low [facility] Lymphocytes/100 WBC (Bld) 6.1 % [facility] MCH (RBC) [Entitic mass] 30.5 pg 26.0 - 34.0 pg [facility] MCHC (RBC) [Mass/Vol] 31.8 g/dL 31.0 - 37.0 g/dL [facility] MCV (RBC) [Entitic vol] 95.7 fL 80.0 - 100.0 fL [facility] Monocytes (Bld) [#/Vol] 0.8 10*3/uL [facility] Monocytes/100 WBC (Bld) 6.8 % [facility] Neutrophils (Bld) [#/Vol] 9.94 10*3/uL High [facility] Neutrophils/100 WBC (Bld) 84.8 % [facility] Nucleated RBC (Bld) [#/Vol] 0 10*3/uL [facility] Nucleated RBC/100 WBC (Bld) [Ratio] 0 % [facility] Platelet mean volume (Bld) [Entitic vol] 11.9 fL 9.4 - 12.4 fL [facility] Platelets (Bld) [#/Vol] 165 10*3/uL [facility] RBC (Bld) [#/Vol] 3.28 10*6/uL Low [facility] WBC (Bld) [#/Vol] 11.72 10*3/uL High [facility] CBC WITH AUTO DIFFERENTIALon 11-20-2024 AUTO NRBC 0.0 % [facility] Comment on above: Performed By: #### L [id number] #### LAB [address] [address] Gonsalo Tello M.D. [id number] AUTO NRBC ABS COUNT 0.00 K/mcL Normal 0.00-0.00 [facility] Comment on above: Performed By: #### L [id number] #### LAB [address] [address] Gonsalo Tello M.D. [id number] BASOPHILS ABSOLUTE COUNT 0.02 K/mcL Normal 0.00-0.30 [facility] Comment on above: Performed By: #### L [id number] #### LAB [address] [place] [address] Gonsalo Tello M.D. [id number] Basophils/100 WBC (Bld) 0.2 % [facility] Comment on above: Performed By: #### L [id number] #### LAB [address] [place] [address] Gonsalo Tello M.D. [id number] Eosinophils (Bld) [#/Vol] 0.18 10*3/uL Normal 0.00-0.50 [facility] Comment on above: Performed By: #### L [id number] #### LAB [address] [place] [address] Gonsalo Tello M.D. [id number] Eosinophils/100 WBC (Bld) 1.5 % [facility] Comment on above: Performed By: #### L [id number] #### LAB [address] [place] [address] Gonsalo Tello M.D. [id number] Erythrocyte distribution width (RBC) [Ratio] 13.2 % Normal 11.6-14.8 [facility] Comment on above: Performed By: #### L [id number] #### LAB [address] [address] Gonsalo Tello M.D. [id number] Hematocrit (Bld) [Volume fraction] 31.4 % Low 41.0-53.0 [facility] Comment on above: Performed By: #### L [id number] #### LAB [address] [address] Gonsalo Tello M.D. [id number] Hemoglobin (Bld) [Mass/Vol] 10.0 g/dL Low 13.5-17.5 [facility] Comment on above: Performed By: #### L [id number] #### LAB [address] [address] Gonsalo Tello M.D. [id number] IG ABSOLUTE 0.07 K/mcL Normal 0.00-0.30 [facility] Comment on above: Performed By: #### L [id number] #### LAB [address] [address] Gonsalo Tello M.D. [id number] IG PERCENT 0.60 % Normal [facility] Comment on above: Result Comment: The IG parameter is the percentage of metamyelocytes, myelocytes and promyelocytes. An immature granulocyte count (IG) of 1% or more suggests the possibility of infection, an IG count of 3% is very likely related to an infection. Performed By: #### L [id number] #### LAB [address] [address] Gonsalo Tello M.D. [id number] Lymphocytes (Bld) [#/Vol] 0.71 10*3/uL Low 0.90-4.00 [facility] Comment on above: Performed By: #### L [id number] #### LAB [address] [place] [address] Gonsalo Tello M.D. [id number] Lymphocytes/100 WBC (Bld) 6.1 % Normal [facility] Comment on above: Performed By: #### L [id number] #### LAB [address] [address] Gonsalo Tello M.D. [id number] MCH (RBC) [Entitic mass] 30.5 pg Normal 26.0-34.0 [facility] Comment on above: Performed By: #### L [id number] #### LAB [address] [address] Gonsalo Tello M.D. [id number] MCV (RBC) [Entitic vol] 95.7 fL Normal 80.0-100.0 [facility] Comment on above: Performed By: #### L [id number] #### LAB [address] [address] Gonsalo Tello M.D. [id number] MEAN CORPUSCULAR HEMOGLOBIN CONC 31.8 g/dL Normal 31.0-37.0 [facility] Comment on above: Performed By: #### L [id number] #### LAB [address] [address] Gonsalo Tello M.D. [id number] Monocytes (Bld) [#/Vol] 0.80 10*3/uL Normal 0.30-0.90 [facility] Comment on above: Performed By: #### L [id number] #### LAB [address] [address] Gonsalo Tello M.D. [id number] Monocytes/100 WBC (Bld) 6.8 % Normal [facility] Comment on above: Performed By: #### L [id number] #### LAB [address] [address] Gonsalo Tello M.D. [id number] NEUTROPHILS ABSOLUTE COUNT 9.94 K/mcL High 1.70-7.00 [facility] Comment on above: Performed By: #### L [id number] ####[facility] [address] [place] [address] Gonsalo Tello M.D. [id number] Neutrophils/100 WBC (Bld) 84.8 % Normal [facility] Comment on above: Performed By: #### L [id number] ####[facility] LAB [address] [address] Gonsalo Tello M.D. [id number] Platelet mean volume (Bld) [Entitic vol] 11.9 fL Normal 9.4-12.4 [facility] Comment on above: Performed By: #### L [id number] ####[facility] [address] [address] Gonsalo Tello M.D. [id number] Platelets (Bld) [#/Vol] 165 10*3/uL Normal 150-400 [facility] Comment on above: Performed By: #### L [id number] ####[facility] [address] [address] Gonsalo Tello M.D. [id number] RBC (Bld) [#/Vol] 3.28 10*6/uL Low 4.50-5.90 [facility] Comment on above: Performed By: #### L [id number] ####[facility] LAB [address] [address] Gonsalo Tello M.D. [id number] WBC (Bld) [#/Vol] 11.72 10*3/uL High 4.50-11.00 [facility] Comment on above: Performed By: #### L [id number] #### LAB [address] [address] Gonsalo Tello M.D. [id number] COMPREHENSIVE METABOLIC PANE Pj 11-20-2024 Albumin [Mass/Vol] 3.3 g/dL Normal 3.2-5.2 [facility] Comment on above: Order Comment: Injur y/Trauma or Illness?:Illness/Other How long have you had these symptoms (acute/chronic)?:Unknown Reason for exam?:memory problems over the last 2 years: hx of tongue cancer: Type of Exam?:Unknown Additional signs and symptoms?:n Performed By: #### 4 6126 ####[facility] [address] [place] [address] Gonsalo Tello M.D. [id number] ALP [Catalytic activity/Vol] 122 U/L Normal 40-150 [facility] Comment on above: Order Comment: Injur y/Trauma or Illness?:Illness/Other How long have you had these symptoms (acute/chronic)?:Unknown Reason for exam?:memory problems over the last 2 years: hx of tongue cancer: Type of Exam?:Unknown Additional signs and symptoms?:n Performed By: #### 4 6126 #### LAB [address] [address] Gonsalo Tello M.D. [id number] ALT [Catalytic activity/Vol] 19 U/L Normal 0-50 U/L [facility] Comment on above: Order Comment: Injur y/Trauma or Illness?:Illness/Other How long have you had these symptoms (acute/chronic)?:Unknown Reason for exam?:memory problems over the last 2 years: hx of tongue cancer: Type of Exam?:Unknown Additional signs and symptoms?:n Performed By: #### 4 6126 #### LAB [address] [address] Gonsalo Tello M.D. [id number] Anion gap [Moles/Vol] 14 mmol/L Normal 10-20 [facility] Comment on above: Order Comment: Injur y/Trauma or Illness?:Illness/Other How long have you had these symptoms (acute/chronic)?:Unknown Reason for exam?:memory problems over the last 2 years: hx of tongue cancer: Type of Exam?:Unknown Additional signs and symptoms?:n Performed By: #### 4 6126 #### LAB [address] [address] Gonsalo Tello M.D. [id number] AST [Catalytic activity/Vol] 25 U/L Normal 0-50 U/L [facility] Comment on above: Order Comment: Injur y/Trauma or Illness?:Illness/Other How long have you had these symptoms (acute/chronic)?:Unknown Reason for exam?:memory problems over the last 2 years: hx of tongue cancer: Type of Exam?:Unknown Additional signs and symptoms?:n Performed By: #### 4 6126 #### LAB [address] [id number] Gonsalo Tello M.D. [id number] Bilirubin [Mass/Vol] 0.4 mg/dL Normal 0.0-1.3 [facility] Comment on above: Order Comment: Injur y/Trauma or Illness?:Illness/Other How long have you had these symptoms (acute/chronic)?:Unknown Reason for exam?:memory problems over the last 2 years: hx of tongue cancer: Type of Exam?:Unknown Additional signs and symptoms?:n Performed By: #### 4 6126 #### LAB [address] [address] Gonsalo Tello M.D. [id number] Calcium [Mass/Vol] 8.8 mg/dL Normal 8.4-10.2 [facility] Comment on above: Order Comment: Injur y/Trauma or Illness?:Illness/Other How long have you had these symptoms (acute/chronic)?:Unknown Reason for exam?:memory problems over the last 2 years: hx of tongue cancer: Type of Exam?:Unknown Additional signs and symptoms?:n Performed By: #### 4 6126 #### LAB [address] [address] Gonsalo Tello M.D. [id number] Chloride [Moles/Vol] 108 mmol/L Normal 98-108 [facility] Comment on above: Order Comment: Injur y/Trauma or Illness?:Illness/Other How long have you had these symptoms (acute/chronic)?:Unknown Reason for exam?:memory problems over the last 2 years: hx of tongue cancer: Type of Exam?:Unknown Additional signs and symptoms?:n Performed By: #### 4 6126 #### LAB [address] [address] Gonsalo Tello M.D. [id number] Creatinine [Mass/Vol] 0.70 mg/dL Low 0.80-1.30 [facility] Comment on above: Order Comment: Injur y/Trauma or Illness?:Illness/Other How long have you had these symptoms (acute/chronic)?:Unknown Reason for exam?:memory problems over the last 2 years: hx of tongue cancer: Type of Exam?:Unknown Additional signs and symptoms?:n Performed By: #### 4 6126 #### LAB [address] [id number] Gonsalo Tello M.D. [id number] EGFR 97 mL/min/1.73 m2 Normal >=60 [facility] Comment on above: Order Comment: Injur y/Trauma or Illness?:Illness/Other How long have you had these symptoms (acute/chronic)?:Unknown Reason for exam?:memory problems over the last 2 years: hx of tongue cancer: Type of Exam?:Unknown Additional signs and symptoms?:n Result Comment: Marv mated GFR was calculated using the 2020 CKD-EPI creatinine equation. Performed By: #### 4 6126 #### LAB [address] [address] Gonsalo Tello M.D. [id number] Glucose [Mass/Vol] 126 mg/dL High 65-99 [facility] Comment on above: Order Comment: Injur y/Trauma or Illness?:Illness/Other How long have you had these symptoms (acute/chronic)?:Unknown Reason for exam?:memory problems over the last 2 years: hx of tongue cancer: Type of Exam?:Unknown Additional signs and symptoms?:n Performed By: #### 4 6126 #### LAB [address] [address] Gonsalo Tello M.D. [id number] HCO3 (Bld) [Moles/Vol] 28 mmol/L Normal 21-32 [facility] Comment on above: Order Comment: Injur y/Trauma or Illness?:Illness/Other How long have you had these symptoms (acute/chronic)?:Unknown Reason for exam?:memory problems over the last 2 years: hx of tongue cancer: Type of Exam?:Unknown Additional signs and symptoms?:n Performed By: #### 4 6126 #### LAB [address] [address] Gonsalo Tello M.D. [id number] Potassium [Moles/Vol] 3.9 mmol/L Normal 3.5-5.1 [facility] Comment on above: Order Comment: Injur y/Trauma or Illness?:Illness/Other How long have you had these symptoms (acute/chronic)?:Unknown Reason for exam?:memory problems over the last 2 years: hx of tongue cancer: Type of Exam?:Unknown Additional signs and symptoms?:n Result Comment: Marlene levin Hemolyzed Performed By: #### 4 6126 #### LAB [address] [address] Gonsalo Tello M.D. [id number] Protein [Mass/Vol] 6.1 g/dL Normal 6.0-8.0 [facility] Comment on above: Order Comment: Injur y/Trauma or Illness?:Illness/Other How long have you had these symptoms (acute/chronic)?:Unknown Reason for exam?:memory problems over the last 2 years: hx of tongue cancer: Type of Exam?:Unknown Additional signs and symptoms?:n Performed By: #### 4 6126 #### LAB [address] [address] Gonsalo Tello M.D. [id number] Sodium [Moles/Vol] 146 mmol/L High 135-145 [facility] Comment on above: Order Comment: Injur y/Trauma or Illness?:Illness/Other How long have you had these symptoms (acute/chronic)?:Unknown Reason for exam?:memory problems over the last 2 years: hx of tongue cancer: Type of Exam?:Unknown Additional signs and symptoms?:n Performed By: #### 4 6126 #### LAB [address] [address] Gonsalo Tello M.D. [id number] Urea nitrogen [Mass/Vol] 16 mg/dL Normal 8-25 [facility] Comment on above: Order Comment: Injur y/Trauma or Illness?:Illness/Other How long have you had these symptoms (acute/chronic)?:Unknown Reason for exam?:memory problems over the last 2 years: hx of tongue cancer: Type of Exam?:Unknown Additional signs and symptoms?:n Performed By: #### 4 6196 #### LAB [address] [address] Gonsalo Tello M.D. [id number] Urea nitrogen/Creatinine [Mass ratio] 22.9 mg/mg High 10.0-20.0 [facility] Comment on above: Order Comment: Injur y/Trauma or Illness?:Illness/Other How long have you had these symptoms (acute/chronic)?:Unknown Reason for exam?:memory problems over the last 2 years: hx of tongue cancer: Type of Exam?:Unknown Additional signs and symptoms?:n Performed By: #### 4 6126 ####[facility] [address] [place] [address] Gonsalo Tello M.D. [id number] Comprehensive metabolic 2000 panelon 11-20-2024 Albumin [Mass/Vol] 3.3 g/dL 3.2 - 5.2 g/dL [facility] ALP [Catalytic activity/Vol] 122 U/L 40 - 150 U/L [facility] ALT [Catalytic activity/Vol] 19 U/L 0 - 50 U/L [facility] Anion gap [Moles/Vol] 14 mmol/L 10 - 2 0 mmol/L [facility] AST [Catalytic activity/Vol] 25 U/L 0 - 50 U/L [facility] Bilirubin [Mass/Vol] 0.4 mg/dL 0.0 - 1 .3 mg/dL [facility] Calcium [Mass/Vol] 8.8 mg/dL 8.4 - 10. 2 mg/dL [facility] Chloride [Moles/Vol] 108 mmol/L 98 - 10 8 mmol/L [facility] Creatinine [Mass/Vol] 0.7 mg/dL Low 0.80 - 1.30 mg/dL [facility] GFR/1.73 sq M.predicted CKD-EPI (S/P/Bld) [Vol rate/Area] 97 - PINF [facility] Comment on above: Estimated GFR was ca lculated using the 2020 CKD-EPI creatinine equation. Glucose [Mass/Vol] 126 mg/dL High 65 - 99 mg/dL [facility] HCO3 [Moles/Vol] 28 mmol/L 21 - 32 mmol/L [facility] Interpretation and review of laboratory results Abnormal [facility] Potassium [Moles/Vol] 3.9 mmol/L 3.5 - 5.1 mmol/L [facility] Comment on above: Slightly Hemolyzed Protein [Mass/Vol] 6.1 g/dL 6.0 - 8.0 g/dL [facility] Sodium [Moles/Vol] 146 mmol/L High 135 - 145 mmol/L [facility] Urea nitrogen [Mass/Vol] 16 mg/dL 8 - 25 mg/dL [facility] Urea nitrogen/Creatinine [Mass ratio] 22.9 mg/mg High 10.0 - 20.0 [facility] has implemented the eGFR calculation approach that does not have a coefficient for race that conforms to the NKF-ASN Task Force Recommendations. [facility] Glucose (Bld) [Mass/Vol]on Glucose [Mass/Vol] 131 mg/dL High 65 - 99 [facility] and review of laboratory results Abnormal [facility] Glucose [Mass/Vol] 102 mg/dL High 65 - 99 mg/dL [facility] Interpretation and review of laboratory results Abnormal [facility] Glucose [Mass/Vol] 108 mg/dL High 65 - 99 mg/dL [facility] Interpretation and review of laboratory results Abnormal [facility] Glucose [Mass/Vol] 116 mg/dL High 65 - 99 mg/dL [facility] and review of laboratory results Abnormal [facility] Glucose [Mass/Vol] 129 mg/dL High 65 - 99 mg/dL [facility] Interpretation and review of laboratory results Abnormal [facility] Glucose [Mass/Vol] 117 mg/dL High 65 - 99 mg/dL [facility] Interpretation and review of laboratory results Abnormal [facility] MAGNESIUM LEVELon 11-20-2024 Magnesium [Mass/Vol] 2.0 mg/dL Normal 1.6-2.4 [facility] Comment on above: Performed By: #### 4 4046 #### [facility] [address] [place] [address] Amauri Barone M.D. [id number] Magnesium Levelon 11-20-2024 Magnesium [Mass/Vol] 2 mg/dL 1.6 - 2 .4 mg/dL [facility] No Panel Informationon 11-20 Interpretation and review of laboratory results Normal [facility] PHOSPHORUSon 11-20-2024 Phosphate [Mass/Vol] 2.7 mg/dL Normal 2.3-3.7 [facility] Comment on above: Performed By: #### 4 4046 #### [facility] [address] [address] Amauri Barone M.D. [id number] POC GLUCOSE - [facility] 025 Glucose [Mass/Vol] 131 mg/dL High 65-99 [facility] Glucose [Mass/Vol] 102 mg/dL High 65-99 [facility] Glucose [Mass/Vol] 108 mg/dL High 65-99 [facility] Glucose [Mass/Vol] 116 mg/dL High 65-99 [facility] [facility] Glucose [Mass/Vol] 129 mg/dL High 65-99 [facility] Glucose [Mass/Vol] 117 mg/dL High 65-99 [facility] Phosphoruson 11-20-2024 Phosphate [Mass/Vol] 2.7 mg/dL 2.3 - 3 .7 mg/dL [facility] QUEST AD DETECT [id number], CARLY SMAon 11-20-2024 QUEST AD DETECT [id number], PLASMA 0.84 pg/mL High < OR = 0.15 [facility] Comment on above: Result Comment: Plas ma [id number] levels are consistent with current mild cognitive impairment and symptomatic Alzheimer's disease when compared to patients with other neurodegenerative disorders and show strong correlation with amyloid PET and tau PET. Lancet Neurol 2021; 20:739-752 This test was developed and its analytical performance characteristics have been determined by [employer]. It has not been cleared or approved by the FDA. This assay has been validated pursuant to the CLIA regulations and is used for clinical purposes. Performed By: #### 1 0315 #### [facility] [facility], [address] [place] [address] Ethnic Studies Professor: Karin Billingsley MD,PhD,ROSY #### [id number] #### [facility] [address], [address] [place] [phone] Ethnic Studies Professor: Vikas Grant MD VITAMIN B12/FOLATE, SERUM PA Alex 11-20-2024 Cobalamin (Vitamin B12) [Mass/Vol] pg/mL High 200-1100 [facility] Comment on above: Performed By: #### 1 0845 #### [facility], [address] [place] [address] Ethnic Studies Professor: Karin Billingsley MD,PhD,ROSY #### [id number] #### [facility] [address], [address] [place] [address] Ethnic Studies Professor: Vikas Grant MD Folate [Mass/Vol] ng/mL Normal [facility] Comment on above: Result Comment: Refe rence Range Low: <3.4 Borderline: 3.4-5.4 Normal: >5.4 Performed By: #### 1 3825 #### [facility], [address] [place] [address] Ethnic Studies Professor: Karin Billingsley MD,PhD,ROSY #### [id number] #### [facility] [address], [address] [place] [address] Ethnic Studies Professor: Vikas Grant MD Bacteria identified Aer cx N om (Unsp spec)Ordered By: Sandie Caldwell on 11-19-2024 [facility] CBC Auto Differentialon Basophils (Bld) [#/Vol] 0.06 10*3/uL [facility] Basophils/100 WBC (Bld) 0.3 % [facility] Eosinophils (Bld) [#/Vol] 0.08 10*3/uL [facility] Eosinophils/100 WBC (Bld) 0.5 % [facility] Erythrocyte distribution width (RBC) [Entitic vol] 13.5 % 11.6 - 14.8 % [facility] Hematocrit (Bld) [Volume fraction] 36.8 % Low 41.0 - 53.0 % [facility] Hemoglobin (Bld) [Mass/Vol] 11.9 g/dL Low 13.5 - 17.5 g/dL [facility] Immature granulocytes (Bld) [#/Vol] 0.17 10*3/uL [facility] Immature granulocytes/100 WBC (Bld) 1 % [facility] Comment on above: The IG parameter is the percentage of metamyelocytes, myelocytes and promyelocytes. An immature granulocyte count (IG) of 1% or more suggests the possibility of infection, an IG count of 3% is very likely related to an infection. Interpretation and review of laboratory results Abnormal [facility] Lymphocytes (Bld) [#/Vol] 0.71 10*3/uL Low [facility] Lymphocytes/100 WBC (Bld) 4 % [facility] MCH (RBC) [Entitic mass] 30.4 pg 26.0 - 34.0 pg [facility] MCHC (RBC) [Mass/Vol] 32.3 g/dL 31.0 - 37.0 g/dL [facility] MCV (RBC) [Entitic vol] 94.1 fL 80.0 - 100.0 fL [facility] Monocytes (Bld) [#/Vol] 0.91 10*3/uL High [facility] Monocytes/100 WBC (Bld) 5.2 % [facility] Neutrophils (Bld) [#/Vol] 15.71 10*3/uL High [facility] Neutrophils/100 WBC (Bld) 89 % [facility] Nucleated RBC (Bld) [#/Vol] 0 10*3/uL [facility] Nucleated RBC/100 WBC (Bld) [Ratio] 0 % [facility] Platelet mean volume (Bld) [Entitic vol] 12.4 fL 9.4 - 12.4 fL [facility] Platelets (Bld) [#/Vol] 150 10*3/uL [facility] RBC (Bld) [#/Vol] 3.91 10*6/uL Low [facility] WBC (Bld) [#/Vol] 17.64 10*3/uL [facility] CBC WITH AUTO DIFFERENTIALon 11-19-2024 AUTO NRBC 0.0 % Normal [facility] Comment on above: Performed By: #### L [id number] ####[facility] [address] [place], [place] [address] Gonsalo Tello M.D. [id number] AUTO NRBC ABS COUNT 0.00 K/mcL Normal 0.00-0.00 [facility] Comment on above: Performed By: #### L [id number] ####[facility] [address] [place], [place] [address] Gonsalo Tello M.D. [id number] BASOPHILS ABSOLUTE COUNT 0.06 K/mcL Normal 0.00-0.30 [facility] Comment on above: Performed By: #### L [id number] #### LAB [address] [place] [address] Gonsalo Tello M.D. [id number] Basophils/100 WBC (Bld) 0.3 % Normal [facility] Comment on above: Performed By: #### L [id number] #### LAB [address] [place] [address] Gonsalo Tello M.D. [id number] Eosinophils (Bld) [#/Vol] 0.08 10*3/uL Normal 0.00-0.50 [facility] Comment on above: Performed By: #### L [id number] #### LAB [address] [place] [address] Gonsalo Tello M.D. [id number] Eosinophils/100 WBC (Bld) 0.5 % Normal [facility] Comment on above: Performed By: #### L [id number] #### LAB [address] [place] [address] Gonsalo Tello M.D. [id number] Erythrocyte distribution width (RBC) [Ratio] 13.5 % Normal 11.6-14.8 [facility] Comment on above: Performed By: #### L [id number] #### LAB [address] [place] [address] Gonsalo Tello M.D. [id number] Hematocrit (Bld) [Volume fraction] 36.8 % Low 41.0-53.0 [facility] Comment on above: Performed By: #### L [id number] #### LAB [address] [place] [address] Gonsalo Tello M.D. [id number] Hemoglobin (Bld) [Mass/Vol] 11.9 g/dL Low 13.5-17.5 [facility] Comment on above: Performed By: #### L [id number] #### LAB [address] [place] [address] Gonsalo Tello M.D. [id number] IG ABSOLUTE 0.17 K/mcL Normal 0.00-0.30 [facility] Comment on above: Performed By: #### L [id number] #### LAB [address] [place] [address] Gonsalo Tello M.D. [id number] IG PERCENT 1.00 % Normal [facility] Comment on above: Result Comment: The IG parameter is the percentage of metamyelocytes, myelocytes and promyelocytes. An immature granulocyte count (IG) of 1% or more suggests the possibility of infection, an IG count of 3% is very likely related to an infection. Performed By: #### L [id number] #### LAB [address] [place] [address] Gonsalo Tello M.D. [id number] Lymphocytes (Bld) [#/Vol] 0.71 10*3/uL Low 0.90-4.00 [facility] Comment on above: Performed By: #### L [id number] #### LAB [address] [place] [address] Gonsalo Tello M.D. [id number] Lymphocytes/100 WBC (Bld) 4.0 % Normal [facility] Comment on above: Performed By: #### L [id number] #### LAB [address] [place] [address] Gonsalo Tello M.D. [id number] MCH (RBC) [Entitic mass] 30.4 pg Normal 26.0-34.0 [facility] Comment on above: Performed By: #### L [id number] #### LAB [address] [place] [address] Gonsalo Tello M.D. [id number] MCV (RBC) [Entitic vol] 94.1 fL Normal 80.0-100.0 [facility] Comment on above: Performed By: #### L [id number] #### LAB [address] [place] [address] Gonsalo Tello M.D. [id number] MEAN CORPUSCULAR HEMOGLOBIN CONC 32.3 g/dL Normal 31.0-37.0 [facility] Comment on above: Performed By: #### L [id number] #### LAB [address] [place] [address] Gonsalo Tello M.D. [id number] Monocytes (Bld) [#/Vol] 0.91 10*3/uL High 0.30-0.90 [facility] Comment on above: Performed By: #### L [id number] #### LAB [address] [place] [address] Gonsalo Tello M.D. [id number] Monocytes/100 WBC (Bld) 5.2 % Normal [facility] Comment on above: Performed By: #### L [id number] #### LAB [address] [place] [address] Gonsalo Tello M.D. [id number] NEUTROPHILS ABSOLUTE COUNT 15.71 K/mcL High 1.70-7.00 [facility] Comment on above: Performed By: #### L [id number] #### LAB [address] [place] [address] Gonsalo Tello M.D. [id number] Neutrophils/100 WBC (Bld) 89.0 % Normal [facility] Comment on above: Performed By: #### L [id number] #### LAB [address] [place] [address] Gonsalo Tello M.D. [id number] Platelet mean volume (Bld) [Entitic vol] 12.4 fL Normal 9.4-12.4 [facility] Comment on above: Performed By: #### L [id number] #### LAB [address] [place] [address] Gonsalo Tello M.D. [id number] Platelets (Bld) [#/Vol] 150 10*3/uL Normal 150-400 [facility] Comment on above: Performed By: #### L [id number] #### LAB [address] [place] [address] Gonsalo Tello M.D. [id number] RBC (Bld) [#/Vol] 3.91 10*6/uL Low 4.50-5.90 [facility] Comment on above: Performed By: #### L [id number] #### LAB [address] [place], [place] [address] Gonsalo Tello M.D. [id number] WBC (Bld) [#/Vol] 17.64 10*3/uL High 4.50-11.00 [facility] Comment on above: Performed By: #### L [id number] #### LAB [address] [place] [id number] Gonsalo Tello M.D. [id number] COMPREHENSIVE METABOLIC PANE Pj 11-19-2024 Albumin [Mass/Vol] 3.2 g/dL Normal 3.2-5.2 [facility] Comment on above: Order Comment: [facility] has implemented the eGFR calculation approach that does not have a coefficient for race that conforms to the NKF-ASN Task Force Recommendations. Performed By: #### 4 [id number] #### LAB [address] [place] [address] Gonsalo Tello M.D. [id number] ALP [Catalytic activity/Vol] 84 U/L Normal 40-150 [facility] Comment on above: Order Comment: [facility] has implemented the eGFR calculation approach that does not have a coefficient for race that conforms to the NKF-ASN Task Force Recommendations. Performed By: #### 4 6608 #### LAB [address] [place], [place] [address] Gonsalo Tello M.D. [id number] ALT [Catalytic activity/Vol] 17 U/L Normal 0-50 U/L [facility] Comment on above: Order Comment: [facility] has implemented the eGFR calculation approach that does not have a coefficient for race that conforms to the NKF-ASN Task Force Recommendations. Performed By: #### 4 6608 #### LAB [address] [place] [address] Gonsalo Tello M.D. [id number] Anion gap [Moles/Vol] 11 mmol/L Normal 10-20 [facility] Comment on above: Order Comment: [facility] has implemented the eGFR calculation approach that does not have a coefficient for race that conforms to the NKF-ASN Task Force Recommendations. Performed By: #### 4 6608 #### LAB [address] [place] [address] Gonsalo Tello M.D. [id number] AST [Catalytic activity/Vol] 24 U/L Normal 0-50 U/L [facility] Comment on above: Order Comment: [facility] has implemented the eGFR calculation approach that does not have a coefficient for race that conforms to the NKF-ASN Task Force Recommendations. Performed By: #### 4 6608 #### LAB [address] [place] [address] Gonsalo Tello M.D. [id number] Bilirubin [Mass/Vol] 0.5 mg/dL Normal 0.0-1.3 [facility] Comment on above: Order Comment: [facility] has implemented the eGFR calculation approach that does not have a coefficient for race that conforms to the NKF-ASN Task Force Recommendations. Performed By: #### 4 6608 #### LAB [address] [place] [address] Gonsalo Tello M.D. [id number] Calcium [Mass/Vol] 8.7 mg/dL Normal 8.4-10.2 [facility] Comment on above: Order Comment: [facility] has implemented the eGFR calculation approach that does not have a coefficient for race that conforms to the NKF-ASN Task Force Recommendations. Performed By: #### 4 6608 #### LAB [address] [place] [address] Gonsalo Tello M.D. [id number] Chloride [Moles/Vol] 109 mmol/L High 98-108 [facility] Comment on above: Order Comment: [facility] has implemented the eGFR calculation approach that does not have a coefficient for race that conforms to the NKF-ASN Task Force Recommendations. Performed By: #### 4 6608 #### LAB [address] [place] [address] Gonsalo Tello M.D. [id number] Creatinine [Mass/Vol] 0.71 mg/dL Low 0.80-1.30 [facility] Comment on above: Order Comment: [facility] has implemented the eGFR calculation approach that does not have a coefficient for race that conforms to the NKF-ASN Task Force Recommendations. Performed By: #### 4 6608 #### LAB [address] [place] [address] Gonsalo Tello M.D. [id number] EGFR 96 mL/min/1.73 m2 Normal >=60 [facility] Comment on above: Order Comment: [facility] has implemented the eGFR calculation approach that does not have a coefficient for race that conforms to the NKF-ASN Task Force Recommendations. Result Comment: Marv mated GFR was calculated using the 2020 CKD-EPI creatinine equation. Performed By: #### 4 6608 #### LAB [address] [place] [address] Gonsalo Tello M.D. [id number] Glucose [Mass/Vol] 128 mg/dL High 65-99 [facility] Comment on above: Order Comment: [facility] has implemented the eGFR calculation approach that does not have a coefficient for race that conforms to the NKF-ASN Task Force Recommendations. Performed By: #### 4 6608 #### LAB [address] [place] [address] Gonsalo Tello M.D. [id number] HCO3 (Bld) [Moles/Vol] 27 mmol/L Normal 21-32 [facility] Comment on above: Order Comment: [facility] has implemented the eGFR calculation approach that does not have a coefficient for race that conforms to the NKF-ASN Task Force Recommendations. Performed By: #### 4 6608 #### LAB [address] [place] [address] Gonsalo Tello M.D. [id number] Potassium [Moles/Vol] 3.7 mmol/L Normal 3.5-5.1 [facility] Comment on above: Order Comment: [facility] has implemented the eGFR calculation approach that does not have a coefficient for race that conforms to the NKF-ASN Task Force Recommendations. Performed By: #### 4 6608 #### LAB [address] [place], [place] [address] Gonsalo Tello M.D. [id number] Protein [Mass/Vol] 5.7 g/dL Low 6.0-8.0 [facility] Comment on above: Order Comment: [facility] has implemented the eGFR calculation approach that does not have a coefficient for race that conforms to the NKF-ASN Task Force Recommendations. Performed By: #### 4 6608 #### LAB [address] [place], [place] [address] Gonsalo Tello M.D. [id number] Sodium [Moles/Vol] 143 mmol/L Normal 135-145 [facility] Comment on above: Order Comment: [facility] has implemented the eGFR calculation approach that does not have a coefficient for race that conforms to the NKF-ASN Task Force Recommendations. Performed By: #### 4 6608 #### LAB [address] [place] [address] Gonsalo Tello M.D. [id number] Urea nitrogen [Mass/Vol] 19 mg/dL Normal 8-25 [facility] Comment on above: Order Comment: [facility] has implemented the eGFR calculation approach that does not have a coefficient for race that conforms to the NKF-ASN Task Force Recommendations. Performed By: #### 4 6608 #### LAB [address] [place], [place] [address] Gonsalo Tello M.D. [id number] Urea nitrogen/Creatinine [Mass ratio] 26.8 mg/mg High 10.0-20.0 [facility] Comment on above: Order Comment: [facility] has implemented the eGFR calculation approach that does not have a coefficient for race that conforms to the NKF-ASN Task Force Recommendations. Performed By: #### 4 6608 #### LAB [address] [place], [place] [address] Gonsalo Tello M.D. [id number] Comprehensive metabolic 2000 panelon 11-19-2024 Albumin [Mass/Vol] 3.2 g/dL 3.2 - 5.2 g/dL [facility] ALP [Catalytic activity/Vol] 84 U/L 40 - 150 U/L [facility] ALT [Catalytic activity/Vol] 17 U/L 0 - 50 U/L [facility] Anion gap [Moles/Vol] 11 mmol/L 10 - 2 0 mmol/L [facility] AST [Catalytic activity/Vol] 24 U/L 0 - 50 U/L [facility] Bilirubin [Mass/Vol] 0.5 mg/dL 0.0 - 1 .3 mg/dL [facility] Calcium [Mass/Vol] 8.7 mg/dL 8.4 - 10. 2 mg/dL [facility] Chloride [Moles/Vol] 109 mmol/L High 98 - 10 8 mmol/L [facility] Creatinine [Mass/Vol] 0.71 mg/dL Low 0.80 - 1.30 mg/dL [facility] GFR/1.73 sq M.predicted CKD-EPI (S/P/Bld) [Vol rate/Area] 96 - PINF [facility] Comment on above: Estimated GFR was ca lculated using the 2020 CKD-EPI creatinine equation. Glucose [Mass/Vol] 128 mg/dL High 65 - 99 mg/dL [facility]al HCO3 [Moles/Vol] 27 mmol/L 21 - 32 mmol/L [facility] Potassium [Moles/Vol] 3.7 mmol/L 3.5 - 5.1 mmol/L [facility] Protein [Mass/Vol] 5.7 g/dL Low 6.0 - 8.0 g/dL [facility] Sodium [Moles/Vol] 143 mmol/L 135 - 145 mmol/L [facility] Urea nitrogen [Mass/Vol] 19 mg/dL 8 - 25 mg/dL [facility] Urea nitrogen/Creatinine [Mass ratio] 26.8 mg/mg High 10.0 - 20.0 [facility] has implemented the eGFR calculation approach that does not have a coefficient for race that conforms to the NKF-ASN Task Force Recommendations. [facility] Glucose (Bld) [Mass/Vol]on Glucose [Mass/Vol] 135 mg/dL High 65 - 99 mg/dL [facility] Interpretation and review of laboratory results Abnormal [facility] Glucose [Mass/Vol] 92 mg/dL 65 - 99 mg/dL [facility] Interpretation and review of laboratory results Normal [facility] Glucose [Mass/Vol] 121 mg/dL High 65 - 99 mg/dL [facility] Interpretation and review of laboratory results Abnormal [facility] Glucose [Mass/Vol] 109 mg/dL High 65 - 99 mg/dL [facility] Interpretation and review of laboratory results Abnormal [facility] Glucose [Mass/Vol] 144 mg/dL High 65 - 99 [facility] and [facility] of [facility] results Abnormal [facility] Glucose [Mass/Vol] 120 mg/dL High 65 - 99 mg/dL [facility] Interpretation and review of laboratory results Abnormal [facility] MAGNESIUM LEVELon 11-19-2024 Magnesium [Mass/Vol] 1.8 mg/dL Normal 1.6-2.4 [facility] Comment on above: Performed By: #### 4 6109 ####[facility] [address] [place], [place] [address] Gonsalo Tello M.D. [id number] Magnesium Levelon 11-19-2024 Magnesium [Mass/Vol] 1.8 mg/dL 1.6 - 2 .4 mg/dL [facility] Magnesium [Mass/Vol]on 11-19 Interpretation and review of laboratory results Normal [facility] No Panel Informationon 11-19 Interpretation and review of laboratory results Abnormal [facility] PHOSPHORUSon 11-19-2024 Phosphate [Mass/Vol] 1.2 mg/dL Low 2.3-3.7 [facility] Comment on above: Performed By: #### 4 6299 #### LAB [address] [place], [place] [address] Gonsalo Tello M.D. [id number] POC GLUCOSE - [facility] 025 Glucose [Mass/Vol] 135 mg/dL High 65-99 [facility] Glucose [Mass/Vol] 92 mg/dL Normal 65-99 [facility] Glucose [Mass/Vol] 121 mg/dL High 65-99 [facility] Glucose [Mass/Vol] 109 mg/dL High 65-99 [facility] Glucose [Mass/Vol] 144 mg/dL High 65-99 [facility] Glucose [Mass/Vol] 120 mg/dL High 65-99 [facility] POTASSIUM LEVELon 11-19-2024 Potassium [Moles/Vol] 4.3 mmol/L Normal 3.5-5.1 [facility] Comment on above: Performed By: #### 4 6477 #### LAB [address] [place] [address] Gonsalo Tello M.D. [id number] Phosphoruson 11-19-2024 Phosphate [Mass/Vol] 1.2 mg/dL Low 2.3 - 3 .7 mg/dL [facility] Potassium Levelon 11-19-2024 Potassium [Moles/Vol] 4.3 mmol/L 3.5 - 5.1 mmol/L [facility] Potassium [Moles/Vol]on Interpretation and review of laboratory results Normal [facility] Urine Aerobic CultureOrdered By: Sandie Caldwell on 11-19-2024 Bacteria identified Aer cx Nom (Unsp spec) No Growth (<1,000 CFU/mL) [facility] BASIC METABOLIC PANELon Anion gap [Moles/Vol] 15 mmol/L Normal 10-20 [facility] Comment on above: Order Comment: Injur y/Trauma or Illness?:Illness/Other How long have you had these symptoms (acute/chronic)?:Acute Reason for exam?:Central line placement History of cancer?:tongue cancer Surgeries, chemotherapy, or radiation?:yes Type of Exam?:Initial Additional signs and symptoms?:. Performed By: #### 4 6124 ####[facility] [address] [place] [address] Gonsalo Tello M.D. [id number] Calcium [Mass/Vol] 8.2 mg/dL Low 8.4-10.2 [facility] Comment on above: Order Comment: Injur y/Trauma or Illness?:Illness/Other How long have you had these symptoms (acute/chronic)?:Acute Reason for exam?:Central line placement History of cancer?:tongue cancer Surgeries, chemotherapy, or radiation?:yes Type of Exam?:Initial Additional signs and symptoms?:. Performed By: #### 4 6124 #### LAB [address] [place] [address] Gonsalo Tello M.D. [id number] Chloride [Moles/Vol] 108 mmol/L Normal 98-108 [facility] Comment on above: Order Comment: Injur y/Trauma or Illness?:Illness/Other How long have you had these symptoms (acute/chronic)?:Acute Reason for exam?:Central line placement History of cancer?:tongue cancer Surgeries, chemotherapy, or radiation?:yes Type of Exam?:Initial Additional signs and symptoms?:. Performed By: #### 4 6124 #### LAB [address] [place] [address] Gonsalo Tello M.D. [id number] Creatinine [Mass/Vol] 0.83 mg/dL Normal 0.80-1.30 [facility] Comment on above: Order Comment: Injur y/Trauma or Illness?:Illness/Other How long have you had these symptoms (acute/chronic)?:Acute Reason for exam?:Central line placement History of cancer?:tongue cancer Surgeries, chemotherapy, or radiation?:yes Type of Exam?:Initial Additional signs and symptoms?:. Performed By: #### 4 6124 #### LAB [address] [place] [address] Gonsalo Tello M.D. [id number] EGFR 92 mL/min/1.73 m2 Normal >=60 [facility] Comment on above: Order Comment: Injur y/Trauma or Illness?:Illness/Other How long have you had these symptoms (acute/chronic)?:Acute Reason for exam?:Central line placement History of cancer?:tongue cancer Surgeries, chemotherapy, or radiation?:yes Type of Exam?:Initial Additional signs and symptoms?:. Result Comment: Marv mated GFR was calculated using the 2020 CKD-EPI creatinine equation. Performed By: #### 4 6124 #### LAB [address] [place], [place] [address] Gonsalo Tello M.D. [id number] Glucose [Mass/Vol] 149 mg/dL High 65-99 [facility] Comment on above: Order Comment: Injur y/Trauma or Illness?:Illness/Other How long have you had these symptoms (acute/chronic)?:Acute Reason for exam?:Central line placement History of cancer?:tongue cancer Surgeries, chemotherapy, or radiation?:yes Type of Exam?:Initial Additional signs and symptoms?:. Performed By: #### 4 6199 ####[facility] [address] [place] [address] Gonsalo Tello M.D. [id number] HCO3 (Bld) [Moles/Vol] 25 mmol/L Normal 21-32 [facility] Comment on above: Order Comment: Injur y/Trauma or Illness?:Illness/Other How long have you had these symptoms (acute/chronic)?:Acute Reason for exam?:Central line placement History of cancer?:tongue cancer Surgeries, chemotherapy, or radiation?:yes Type of Exam?:Initial Additional signs and symptoms?:. Performed By: #### 4 6125 #### LAB [address] [address] Gonsalo Tello M.D. [id number] Potassium [Moles/Vol] 3.7 mmol/L Normal 3.5-5.1 [facility] Comment on above: Order Comment: Injur y/Trauma or Illness?:Illness/Other How long have you had these symptoms (acute/chronic)?:Acute Reason for exam?:Central line placement History of cancer?:tongue cancer Surgeries, chemotherapy, or radiation?:yes Type of Exam?:Initial Additional signs and symptoms?:. Performed By: #### 4 6138 #### LAB [address] [address] Gonsalo Tello M.D. [id number] Sodium [Moles/Vol] 144 mmol/L Normal 135-145 [facility] Comment on above: Order Comment: Injur y/Trauma or Illness?:Illness/Other How long have you had these symptoms (acute/chronic)?:Acute Reason for exam?:Central line placement History of cancer?:tongue cancer Surgeries, chemotherapy, or radiation?:yes Type of Exam?:Initial Additional signs and symptoms?:. Performed By: #### 4 6154 #### LAB [address] [address] Gonsalo Tello M.D. [id number] Urea nitrogen [Mass/Vol] 22 mg/dL Normal 8-25 [facility] Comment on above: Order Comment: Injur y/Trauma or Illness?:Illness/Other How long have you had these symptoms (acute/chronic)?:Acute Reason for exam?:Central line placement History of cancer?:tongue cancer Surgeries, chemotherapy, or radiation?:yes Type of Exam?:Initial Additional signs and symptoms?:. Performed By: #### 4 6124 #### LAB [address], [place] [address] Gonsalo Tello M.D. [id number] Urea nitrogen/Creatinine [Mass ratio] 26.5 mg/mg High 10.0-20.0 [facility] Comment on above: Order Comment: Injur y/Trauma or Illness?:Illness/Other How long have you had these symptoms (acute/chronic)?:Acute Reason for exam?:Central line placement History of cancer?:tongue cancer Surgeries, chemotherapy, or radiation?:yes Type of Exam?:Initial Additional signs and symptoms?:. Performed By: #### 4 [id number] #### LAB [address], [place] [address] Gonsalo Tello M.D. [id number] Basic metabolic 2000 panelon 11-18-2024 Anion gap [Moles/Vol] 15 mmol/L 10 - 2 0 mmol/L [facility] Calcium [Mass/Vol] 8.2 mg/dL Low 8.4 - 10. 2 mg/dL [facility] Chloride [Moles/Vol] 108 mmol/L 98 - 10 8 mmol/L [facility] Creatinine [Mass/Vol] 0.83 mg/dL 0.80 - 1.30 mg/dL [facility] GFR/1.73 sq M.predicted CKD-EPI (S/P/Bld) [Vol rate/Area] 92 - PINF [facility] Comment on above: Estimated GFR was ca lculated using the 2020 CKD-EPI creatinine equation. Glucose [Mass/Vol] 149 mg/dL High 65 - 99 mg/dL [facility] H[facility]3 [Moles/Vol] 25 mmol/L 21 - 32 mmol/L [facility] Interpretation and review of laboratory results Abnormal [facility] Potassium [Moles/Vol] 3.7 mmol/L 3.5 - 5.1 mmol/L [facility] Sodium [Moles/Vol] 144 mmol/L 135 - 145 mmol/L [facility] Urea nitrogen [Mass/Vol] 22 mg/dL 8 - 25 mg/dL [facility] Urea nitrogen/Creatinine [Mass ratio] 26.5 mg/mg High 10.0 - 20.0 [facility] has implemented the eGFR calculation approach that does not have a coefficient for race that conforms to the NKF-ASN Task Force Recommendations. [facility] CBCon 11-18-2024 AUTO NRBC 0.0 % Normal [facility] Comment on above: Performed By: #### 4 [id number] #### LAB [address] [address] Gonsalo Tello M.D. [id number] AUTO NRBC ABS COUNT 0.00 K/mcL Normal 0.00-0.00 [facility] Comment on above: Performed By: #### 4 [id number] #### LAB [address] [address] Gonsalo Tello M.D. [id number] Erythrocyte distribution width (RBC) [Ratio] 13.2 % Normal 11.6-14.8 [facility] Comment on above: Performed By: #### 4 [id number] ####[facility] LAB [address] [address] Gonsalo Tello M.D. [id number] Hematocrit (Bld) [Volume fraction] 38.3 % Low 41.0-53.0 [facility] Comment on above: Performed By: #### 4 [id number] #### LAB [address] [address] Gonsalo Tello M.D. [id number] Hemoglobin (Bld) [Mass/Vol] 12.4 g/dL Low 13.5-17.5 [facility] Comment on above: Performed By: #### 4 [id number] #### LAB [address] [address] Gonsalo Tello M.D. [id number] MCH (RBC) [Entitic mass] 30.2 pg Normal 26.0-34.0 [facility] Comment on above: Performed By: #### 4 [id number] ####[facility] LAB [address] [address] Gonsalo Tello M.D. [id number] MCV (RBC) [Entitic vol] 93.4 fL Normal 80.0-100.0 [facility] Comment on above: Performed By: #### 4 [id number] #### LAB [address] [address] Gonsalo Tello M.D. [id number] MEAN CORPUSCULAR HEMOGLOBIN CONC 32.4 g/dL Normal 31.0-37.0 [facility] Comment on above: Performed By: #### 4 [id number] #### LAB [address] [address] Gonsalo Tello M.D. [id number] Platelet mean volume (Bld) [Entitic vol] 11.4 fL Normal 9.4-12.4 [facility] Comment on above: Performed By: #### 4 [id number] #### LAB [address] [address] Gonsalo Tello M.D. [id number] Platelets (Bld) [#/Vol] 169 10*3/uL Normal 150-400 [facility] Comment on above: Performed By: #### 4 [id number] #### LAB [address] [address] Gonsalo Tello M.D. [id number] RBC (Bld) [#/Vol] 4.10 10*6/uL Low 4.50-5.90 [facility] Comment on above: Performed By: #### 4 [id number] #### LAB [address] [address] Gonsalo Tello M.D. [id number] WBC (Bld) [#/Vol] 29.07 10*3/uL High 4.50-11.00 [facility] Comment on above: Performed By: #### 4 [id number] #### LAB [address] [address] Gonsalo Tello M.D. [id number] CBC panel Auto (Bld)on 11-18 Erythrocyte distribution width (RBC) [Entitic vol] 13.2 % 11.6 - 14.8 % [facility] Hematocrit (Bld) [Volume fraction] 38.3 % Low 41.0 - 53.0 % [facility] Hemoglobin (Bld) [Mass/Vol] 12.4 g/dL Low 13.5 - 17.5 g/dL [facility] Interpretation and review of laboratory results Abnormal [facility] MCH (RBC) [Entitic mass] 30.2 pg 26.0 - 34.0 pg [facility] MCHC (RBC) [Mass/Vol] 32.4 g/dL 31.0 - 37.0 g/dL [facility] MCV (RBC) [Entitic vol] 93.4 fL 80.0 - 100.0 fL [facility] Nucleated RBC (Bld) [#/Vol] 0 10*3/uL [facility] Nucleated RBC/100 WBC (Bld) [Ratio] 0 % [facility] Platelet mean volume (Bld) [Entitic vol] 11.4 fL 9.4 - 12.4 fL [facility] Platelets (Bld) [#/Vol] 169 10*3/uL [facility] RBC (Bld) [#/Vol] 4.1 10*6/uL Low [facility] alth WBC (Bld) [#/Vol] 29.07 10*3/uL [facility] CONSULTon 11-18-2024 CONSULT -- Attestation signed by Red Ferrara MD at 11/18/2024 12:58 PM I personally examined and interviewed the patient with the PROJECT FACILITATOR. I spent 40 minutes in the intensive care unit providing critical care services to Amy Sun today independent of procedures and other care providers. My time managing this critically ill patient included review of interval history, laboratories, radiology and consultation reports; performing a physical examination; discussing the patient with the multi-disciplinary team and managing life sustaining therapies to prevent imminent clinical deterioration, including managing mechanical ventilation for life threatening respiratory failure. SUBJECTIVE: Amy Sun is a 74yo male with history of tongue cancer dx in 2008 now s/p PEG. He has history of chronic aspiration and presented with sob and fever. CT showing RUL/RML pneumonia. In ED, noted to be hypoxic and hypotensive unresponsive to fluids. Started on norepi. MICU consulted for septic shock management. PHYSICAL EXAM: A&Ox3 CTAB RRR No edema DIAGNOSTIC STUDIES: CTA PULM ART AND CT ABD PELVIS WITH IV CONTRAST 11/17/24: 1. Right upper lobe and middle lobe airspace disease compatible with pneumonia. Mildly enlarged hilar and mediastinal lymph nodes likely reactive. Recommend follow-up to assure resolution. 2. Infrarenal abdominal aortic aneurysm. Recommend continued CT surveillance. 3. Findings suggestive of COPD. 4. Enlarged prostate. ASSESSMENT: Septic shock Aspiration pneumonia COPD Hx PE on Eliquis RECOMMENDATIONS: Wean norepi to MAP >65 Empiric broad-spectrum abx, de-escalate pending blood and sputum cx and MRSA probe Continue home COPD regimen Pulmonary hygiene Supplemental oxygen to maintain sats 88-92% Heparin gtt until Eliquis resumed CRITICAL CARE CONSULT 11/18/2024 Patient: Amy Sun Date of : 1950 Site: [facility] Referring Provider: Refer to consult order in electronic medical record Provider: Azalia Christianson CNP ASSESSMENT/PLAN: Amy Sun 74 y.o. male with history of HTN, HLD, COPD, BPH, GERD, CKD, oropharyngeal cancer, dysphagia who was admitted on 11/17 with septic shock and pneumonia. Respiratory: COPD. Chronic hypoxemic respiratory failure. Chronic bronchiectasis secondary to chronic aspiration. PFT in 08/2023 with moderately severe obstruction with severe air trapping; mildly reduced DLCO and large response to bronchodilators. Anaphylaxis reactions to budesonide, revefenacin with intolerance to duoneb. Unable to tolerate nebulized saline due to facial numbness/throat reconstruction. Alpha 1 anti trypsin negative (204 on 09/2024 at ). Previous sputum culture on 10/04/2024 at grew E.Coli. Currently on Daliresp, Anora Ellipta as home maintenance medications. Managed by Dr. Madhu Adler at pulmonary. Start Vibratory PEP, Chest vest q6, Azithromycin MWF. Lobo Avelar and will have patient bring in own supply of Anora Ellipta given multiple anaphylactic reactions to pulmonary meds. Currently on 3L per nasal cannula. Goal sat 88-92%. Aspiration Pneumonia. Hx of chronic aspiration with PEG placed in 09/2024. Previous sputum culture in 09/[address] imaging with RUL/ML airspace disease. On Zosyn. Respiratory PCR, urine antigens pending. Check sputum culture, MRSA probe. On Zosyn/Vancomycin. Follow cultures. De-escalate as able. Cardiovascular: Shock, septic. BC NTD. Respiratory PCR and urine antigens pending. Check sputum culture, MRSA probe. On Zosyn/Vancomycin. Stop IV Azithromycin and transition to MWF dosing of azithromycin. On Norepinephrine at 11 mcgs. Goal MAP >65. Trend lactate. Hx of PE. CTA in 12/2023 with RLL segmental PE with heart strain. Eliquis on hold per primary. Would consider either bridging with heparin infusion or DVT prophylaxis. Defer to primary. Neuro/Muscular: No acute issues. Serial neuro exams. Renal: No acute issues. Strict I/O. Avoid nephrotoxins. Medically manage electrolytes. Trend Cr. GI/Nutrition: NPO. TF via PEG per african history professor. Oropharyngeal dysphagia with history of aspiration. Sp PEG 09/2024. Endocrine: Pre-diabetes. A1c 5.5. Accuchecks q4 with ISS coverage. Goal BG <180. Heme/Onc: Anemia. Hemoglobin stable. Trend. 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 Managed by [facility] oncology. ID: Sepsis with acute organ dysfunction and shock. Secondary to aspiration. Follow blood, urine, sputum cultures, urine antigens, MRSA probe. On Zosyn/Vancomycin. Management of shock as above. Follow cultures. De-escalate as able. Prophylaxis: Famotidine. DVT prophylaxis/resuming Eliquis - de (more content not included)... Normal [facility] EKG 12-leadon 11-18-2024 Atrial Rate 73 BPM [facility] P [place] 75 degrees [facility] P-R Interval 172 ms [facility] Q-T Interval 392 ms [facility] QRS Duration 80 ms [facility] QTC Calculation (Bezet) 431 ms [facility] R [place] 37 degrees [facility] T [place] 66 degrees [facility] Ventricular Rate 73 BPM [facility] Normal sinus rhythm Normal ECG ECG Cart Interpretation see physician note for interpretation. Confirmed by Meg Castro ([id number]) on 11/18/2024 1:46:19 PM MUSE [facility] Glucose (Bld) [Mass/Vol]on Glucose [Mass/Vol] 125 mg/dL High 65 - 99 mg/dL [facility] Interpretation and review of laboratory results Abnormal [facility] Glucose [Mass/Vol] 95 mg/dL 65 - 99 mg/dL [facility] of [facility] results Normal [facility] Glucose [Mass/Vol] 112 mg/dL High 65 - 99 mg/dL [facility] and review of laboratory results Abnormal [facility] Glucose [Mass/Vol] 120 mg/dL High 65 - 99 mg/dL [facility] and review of laboratory results Abnormal [facility] Glucose [Mass/Vol] 133 mg/dL High 65 - 99 mg/dL [facility] Interpretation and review of laboratory results Abnormal [facility] HEMOGLOBIN A1Con 11-18-2024 Glucose [Mass/Vol] 108 mg/dL Normal 74-114 [facility] Comment on above: Performed By: #### 4 [id number] #### [facility] LAB [address], [place] [address] Gonsalo Tello M.D. [id number] HbA1c (Bld) [Mass fraction] 5.4 % Normal 4.2-5.6 [facility] Comment on above: Performed By: #### 4 [id number] #### [facility] LAB [address], [place] [address] Gonsalo Tello M.D. [id number] HbA1c (Bld) [Mass fraction]o n 11-18-2024 Average glucose Estimated from glycated hemoglobin (Bld) [Mass/Vol] 108 mg/dL 74 - 114 mg/dL [facility] Interpretation and review of laboratory results Normal [facility] Hemoglobin A1con 11-18-2024 HbA1c (Bld) [Mass fraction] 5.4 % 4.2 - 5.6 % [facility] LEGIONELLA ANTIGEN, URINEon 11-18-2024 LEGIONELLA ANTIGEN, URINE LEGIONELLA ANTIGEN Negative for Legionella antigen COMMENT: Results may be affected if patient is on diuretics. INTERPRETATION OF RESULTS: Test detects Legionella pneumophilia serogroup 1 antigens in urine. Legionnaires disease cannot be ruled out since other serogroups and species may also cause disease. Normal [facility] Comment on above: Performed By: #### 4 [id number] ####[facility] [address], [place] [address] Amauri Barone M.D. [id number] Lactate [Moles/Vol]on 2024 Interpretation and review of laboratory results Abnormal [facility] Lactic Acid, Plasmaon 2024 Lactate [Moles/Vol] 2.1 mmol/L High 0.6 - 2. 0 mmol/L [facility] Legionella Antigen, Urineon 11-18-2024 Interpretation and review of laboratory results Normal [facility] L. pneumophila Ag Ql (U) Negative Negative for Legionella antigen [facility] Comment on above: COMMENT: Results may be affected if patient is on diuretics. INTERPRETATION OF RESULTS: Test detects Legionella pneumophilia serogroup 1 antigens in urine. Legionnaires disease cannot be ruled out since other serogroups and species may also cause disease. [facility] MRSA DNA AMPLIFIED PROBEon 1 MRSA DNA AMPLIFIED PROBE Negative Normal Not Detected, MRSA NEGATIVE [facility] Comment on above: Performed By: #### 4 [id number] #### LAB [address], [place] [address] Gonsalo Tello M.D. [id number] MRSA DNA Amplified ProbeOrde red By: Dara Adler on 11-18-2024 MRSA DNA ROBERTA+probe Ql (Unsp spec) Negative Not Detected, MRSA NEGATIVE [facility] MRSA DNA ROBERTA+probe Ql (Unsp spec)Ordered By: Dara Adler on 11-18-2024 Interpretation and review of laboratory results Normal [facility] POC GLUCOSE - MAURYSon 025 Glucose [Mass/Vol] 125 mg/dL High 65-99 [facility] Glucose [Mass/Vol] 95 mg/dL Normal 65-99 [facility] Glucose [Mass/Vol] 112 mg/dL High 65-99 [facility] Glucose [Mass/Vol] 120 mg/dL High 65-99 [facility] Glucose [Mass/Vol] 133 mg/dL High 65-99 [facility] REFLEX LACTIC ACID, PLASMAon 11-18-2024 LACTIC ACID, PLASMA 1.7 mmol/L Normal 0.6-2.0 [facility] Comment on above: Performed By: #### 4 [id number] #### [facility] LAB [address] [address] Gonsalo Tello M.D. [id number] Reflex Lactic Acid, Plasmaon 11-18-2024 Interpretation and review of laboratory results Normal [facility] Lactate [Moles/Vol] 1.7 mmol/L 0.6 - 2. 0 mmol/L [facility] Respiratory pathogens DNA an d RNA panel ROBERTA+non-probe (Nph)Ordered By: Shakir Landry on 11-18-2024 Adenovirus DNA ROBERTA+non-probe Ql (Nph) Not detected Not Detected [facility] B. parapertussis [id number] DNA ROBERTA+non-probe Ql (Nph) Not detected Not Detected [facility] B. pertussis toxin promoter region ROBERTA+non-probe Ql (Nph) Not detected Not Detected [facility] C. pneumoniae DNA ROBERTA+non-probe Ql (Nph) Not detected Not Detected [facility] FLUAV RNA ROBERTA+non-probe Ql (Nph) Not detected Not Detected [facility] FLUBV RNA ROBERTA+non-probe Ql (Nph) Not detected Not Detected [facility] HCoV 229E RNA ROBERTA+non-probe Ql (Nph) Not detected Not Detected [facility] HCoV HKU1 RNA ROBERTA+non-probe Ql (Nph) Not detected Not Detected [facility] HCoV NL63 RNA ROBERTA+non-probe Ql (Nph) Not detected Not Detected [facility] HCoV OC43 RNA ROBERTA+non-probe Ql (Nph) Not detected Not Detected [facility] hMPV RNA ROBERTA+non-probe Ql (Nph) Not detected Not Detected [facility] Interpretation and review of laboratory results Normal [facility] M. pneumoniae DNA ROBERTA+non-probe Ql (Nph) Not detected Not Detected [facility] Parainfluenza virus 1 RNA ROBERTA+non-probe Ql (Nph) Not detected Not Detected [facility] Parainfluenza virus 2 RNA ROBERTA+non-probe Ql (Nph) Not detected Not Detected [facility] Parainfluenza virus 3 RNA ROBERTA+non-probe Ql (Nph) Not detected Not Detected [facility] Parainfluenza virus 4 RNA ROBERTA+non-probe Ql (Nph) Not detected Not Detected [facility] Rhinovirus+Enteroviru s RNA ROBERTA+non-probe Ql (Nph) Not detected Not Detected [facility] RSV RNA ROBERTA+non-probe Ql (Nph) Not detected Not Detected [facility] SARS-CoV-2 (COVID-19) RNA ROBERTA+non-probe Ql (Nph) Not detected Not Detected [facility] S. pneumoniae Urine AntigenO rdered By: Radha Harris on 11-18-2024 Interpretation and review of laboratory results Normal [facility] S. pneumoniae Ag Ql (U) Negative Presumptive Negative for Pneumococcal pneumoniae [facility] Comment on above: A negative result do es not rule out Streptococcus pneumoniae infection since the antigen present in the sample may be below the detection limit of the test. [facility] S.PNEUMONIAE URINE ANTIGENon 11-18-2024 S.PNEUMONIAE URINE ANTIGEN STREP PNEUMONIAE ANTIGEN, URINE Presumptive Negative for Pneumococcal pneumoniae A negative result does not rule out Streptococcus pneumoniae infection since the antigen present in the sample may be below the detection limit of the test. Normal [facility] Comment on above: Performed By: #### 4 6477 #### LAB [address], [place] [address] Gonsalo Tello M.D. [id number] SPUTUM AEROBIC CULTUREon SPUTUM AEROBIC CULTURE RESPIRATORY CULTURE STAPHYLOCOCCUS AUREUS Staphylococcus aureus Methicillin Resistant Staphylococcus aureus (MRSA) detected by PBP2a testing Methicillin Resistant Staphylococcus aureus (MRSA) GRAM STAIN RESULT Many WBC Few Epithelial Cells Moderate Mixed Jillian Organism: STAPHYLOCOCCUS AUREUS Antibiotic Interpretation AKASH Status Cefazolin Susc Islt R F Clindamycin Susc Islt S 0.25 F Doxycycline Susc Islt I 8 F Erythromycin Susc Islt R >=8 F Oxacillin Susc Islt R >=4 F TMP SMX Susc Islt R >=320 F Vancomycin Susc Islt S <=0.5 F Abnormal [facility] Comment on above: Performed By: #### 4 [id number] #### [facility] [address] [address] Amauri Barone M.D. [id number] URINALYSISon 11-18-2024 BACTERIA, URINE None Seen Normal None Seen [facility] Comment on above: Order Comment: Injur y/Trauma or Illness?:Illness/Other How long have you had these symptoms (acute/chronic)?:Unknown Reason for exam?:memory problems over the last 2 years: hx of tongue cancer: Type of Exam?:Unknown Additional signs and symptoms?:n Performed By: #### 4 6625 #### LAB [address] [address] Gonsalo Tello M.D. [id number] BILIRUBIN, URINE Negative Normal Negative [facility] Comment on above: Order Comment: Injur y/Trauma or Illness?:Illness/Other How long have you had these symptoms (acute/chronic)?:Unknown Reason for exam?:memory problems over the last 2 years: hx of tongue cancer: Type of Exam?:Unknown Additional signs and symptoms?:n Performed By: #### 4 6625 #### LAB [address] [address] Gonsalo Tello M.D. [id number] BLOOD, URINE Negative Normal Negative [facility] Comment on above: Order Comment: Injur y/Trauma or Illness?:Illness/Other How long have you had these symptoms (acute/chronic)?:Unknown Reason for exam?:memory problems over the last 2 years: hx of tongue cancer: Type of Exam?:Unknown Additional signs and symptoms?:n Performed By: #### 4 6625 #### LAB [address] [address] Gonsalo Tello M.D. [id number] Clarity (U) Clear Normal Clear [facility] Comment on above: Order Comment: Injur y/Trauma or Illness?:Illness/Other How long have you had these symptoms (acute/chronic)?:Unknown Reason for exam?:memory problems over the last 2 years: hx of tongue cancer: Type of Exam?:Unknown Additional signs and symptoms?:n Performed By: #### 4 6625 #### LAB [address] [address] Gonsalo Tello M.D. [id number] Color (U) Colorless Normal Colorless, Yellow [facility] Comment on above: Order Comment: Injur y/Trauma or Illness?:Illness/Other How long have you had these symptoms (acute/chronic)?:Unknown Reason for exam?:memory problems over the last 2 years: hx of tongue cancer: Type of Exam?:Unknown Additional signs and symptoms?:n Performed By: #### 4 6625 #### LAB [address] [address] Gonsalo Tello M.D. [id number] Glucose Ql (U) Negative Normal Negative [facility] Comment on above: Order Comment: Injur y/Trauma or Illness?:Illness/Other How long have you had these symptoms (acute/chronic)?:Unknown Reason for exam?:memory problems over the last 2 years: hx of tongue cancer: Type of Exam?:Unknown Additional signs and symptoms?:n Performed By: #### 4 6625 #### LAB [address] [address] Gonsalo Tello M.D. [id number] Ketones Ql (U) Negative Normal Negative [facility] Comment on above: Order Comment: Injur y/Trauma or Illness?:Illness/Other How long have you had these symptoms (acute/chronic)?:Unknown Reason for exam?:memory problems over the last 2 years: hx of tongue cancer: Type of Exam?:Unknown Additional signs and symptoms?:n Performed By: #### 4 6625 #### LAB [address] [address] Gonsalo Tello M.D. [id number] Leukocyte esterase Test strip Ql (U) Negative Normal Negative [facility] Comment on above: Order Comment: Injur y/Trauma or Illness?:Illness/Other How long have you had these symptoms (acute/chronic)?:Unknown Reason for exam?:memory problems over the last 2 years: hx of tongue cancer: Type of Exam?:Unknown Additional signs and symptoms?:n Performed By: #### 4 6625 #### LAB [address] [address] Gonsalo Tello M.D. [id number] NITRITE, URINE Negative Normal Negative [facility] Comment on above: Order Comment: Injur y/Trauma or Illness?:Illness/Other How long have you had these symptoms (acute/chronic)?:Unknown Reason for exam?:memory problems over the last 2 years: hx of tongue cancer: Type of Exam?:Unknown Additional signs and symptoms?:n Performed By: #### 4 6625 #### LAB [address] [address] Gonsalo Tello M.D. [id number] pH (U) 5.0 [pH] Normal 5.0-7.0 [facility] Comment on above: Order Comment: Injur y/Trauma or Illness?:Illness/Other How long have you had these symptoms (acute/chronic)?:Unknown Reason for exam?:memory problems over the last 2 years: hx of tongue cancer: Type of Exam?:Unknown Additional signs and symptoms?:n Performed By: #### 4 6625 #### LAB [address] [address] Gonsalo Tello M.D. [id number] PROTEIN, URINE Negative Normal Negative [facility] Comment on above: Order Comment: Injur y/Trauma or Illness?:Illness/Other How long have you had these symptoms (acute/chronic)?:Unknown Reason for exam?:memory problems over the last 2 years: hx of tongue cancer: Type of Exam?:Unknown Additional signs and symptoms?:n Performed By: #### 4 6625 #### LAB [address] [address] Gonsalo Tello M.D. [id number] RBC LM.HPF (Urine sed) [#/Area] 2 /[HPF] Normal 0-3 [facility] Comment on above: Order Comment: Injur y/Trauma or Illness?:Illness/Other How long have you had these symptoms (acute/chronic)?:Unknown Reason for exam?:memory problems over the last 2 years: hx of tongue cancer: Type of Exam?:Unknown Additional signs and symptoms?:n Performed By: #### 4 6625 #### LAB [address] [address] Gonsalo Tello M.D. [id number] Specific gravity (U) [Rel density] > High 1.005-1.025 [facility] Comment on above: Order Comment: Injur y/Trauma or Illness?:Illness/Other How long have you had these symptoms (acute/chronic)?:Unknown Reason for exam?:memory problems over the last 2 years: hx of tongue cancer: Type of Exam?:Unknown Additional signs and symptoms?:n Result Comment: Abno rmally high specific gravity results can be the result of the presence of x-ray or radiographic contrast media or mannitol(diuretic) administration or with large amounts of protein, glucose or in cloudy specimens. Performed By: #### 4 6625 #### LAB [address] [address] Gonsalo Tello M.D. [id number] SQUAMOUS EPITHELIAL 1 /hpf Normal 0-4 [facility] Comment on above: Order Comment: Injur y/Trauma or Illness?:Illness/Other How long have you had these symptoms (acute/chronic)?:Unknown Reason for exam?:memory problems over the last 2 years: hx of tongue cancer: Type of Exam?:Unknown Additional signs and symptoms?:n Performed By: #### 4 6625 #### LAB [address] [address] Gonsalo Tello M.D. [id number] UROBILINOGEN, URINE <2.0 Normal <2.0 [facility] Comment on above: Order Comment: Injur y/Trauma or Illness?:Illness/Other How long have you had these symptoms (acute/chronic)?:Unknown Reason for exam?:memory problems over the last 2 years: hx of tongue cancer: Type of Exam?:Unknown Additional signs and symptoms?:n Performed By: #### 4 6625 #### LAB [address] [address] Gonsalo Tello M.D. [id number] WBC LM.HPF (Urine sed) [#/Area] 3 /[HPF] Normal 0-5 [facility] Comment on above: Order Comment: Injur y/Trauma or Illness?:Illness/Other How long have you had these symptoms (acute/chronic)?:Unknown Reason for exam?:memory problems over the last 2 years: hx of tongue cancer: Type of Exam?:Unknown Additional signs and symptoms?:n Performed By: #### 4 6625 #### LAB [address] [address] Gonsalo Tello M.D. [id number] URINE AEROBIC CULTUREon URINE AEROBIC CULTURE URINE CULTURE No Growth (<1,000 CFU/mL) Normal [facility] Comment on above: Performed By: #### 4 6477 #### LAB [address] [place], [place] [address] Gonsalo Tello M.D. [id number] UrinalysisOrdered By: Sharifa Gibson on 11-18-2024 Bacteria Auto Ql (U) None Seen None Se en /hpf [facility] Bilirubin Ql (U) Negative Negative [facility] th Clarity Refractometry automated (U) Clear Clear [facility] Color (U) Colorless Colorless, Yellow [facility] Epithelial cells.squamous Auto (Urine sed) [#/Area] 1 [facility] Glucose Auto test strip (U) [Mass/Vol] Negative Negative mg/dL [facility] Hemoglobin Auto test strip Ql (U) Negative Negative [facility] Interpretation and review of laboratory results Abnormal [facility] Ketones (U) [Mass/Vol] Negative Negative mg/dL [facility] Leukocyte esterase Auto test strip Ql (U) Negative Negative [facility] Nitrite Auto test strip Ql (U) Negative Negative [facility] pH (U) 5 [pH] 5.0 - 7.0 [facility] Protein (U) [Mass/Vol] Negative Negative mg/dL [facility] RBC Auto (Urine sed) [#/Area] 2 [facility] Specific gravity (U) [Rel density] High 1.005 - 1.025 [facility] Comment on above: Abnormally high spec [facility] gravity results can be the result of the presence of x-ray or radiographic contrast media or mannitol(diuretic) administration or with large amounts of protein, glucose or in cloudy specimens. Urobilinogen (U) [Mass/Vol] mg/dL NINF - 2.0 mg/dL [facility] WBC Auto (Urine sed) [#/Area] 3 [facility] Microscopic examination is performed on all urinalysis samples and only positive findings are reported. The test for blood on the chemical analytic portion of urinalysis may also be positive due to hemoglobinuria and myoglobinuria and if red blood cells are present they are quantified by microscopic examination. [facility] BASIC METABOLIC PANELon Anion gap [Moles/Vol] 19 mmol/L Normal 10-20 [facility] Comment on above: Order Comment: Injur y/Trauma or Illness?:Illness/Other How long have you had these symptoms (acute/chronic)?:Unknown Reason for exam?:memory problems over the last 2 years: hx of tongue cancer: Type of Exam?:Unknown Additional signs and symptoms?:n Performed By: #### 4 6124 #### LAB [address] [address] Gonsalo Tello M.D. [id number] Calcium [Mass/Vol] 9.7 mg/dL Normal 8.4-10.2 [facility] Comment on above: Order Comment: Injur y/Trauma or Illness?:Illness/Other How long have you had these symptoms (acute/chronic)?:Unknown Reason for exam?:memory problems over the last 2 years: hx of tongue cancer: Type of Exam?:Unknown Additional signs and symptoms?:n Performed By: #### 4 6124 #### LAB [address] [address] Gonsalo Tello M.D. [id number] Chloride [Moles/Vol] 102 mmol/L Normal 98-108 [facility] Comment on above: Order Comment: Injur y/Trauma or Illness?:Illness/Other How long have you had these symptoms (acute/chronic)?:Unknown Reason for exam?:memory problems over the last 2 years: hx of tongue cancer: Type of Exam?:Unknown Additional signs and symptoms?:n Performed By: #### 4 6124 #### LAB [address] [address] Gonsalo Tello M.D. [id number] Creatinine [Mass/Vol] 0.97 mg/dL Normal 0.80-1.30 [facility] Comment on above: Order Comment: Injur y/Trauma or Illness?:Illness/Other How long have you had these symptoms (acute/chronic)?:Unknown Reason for exam?:memory problems over the last 2 years: hx of tongue cancer: Type of Exam?:Unknown Additional signs and symptoms?:n Performed By: #### 4 6124 #### LAB [address] [address] Gonsalo Tello M.D. [id number] EGFR 82 mL/min/1.73 m2 Normal >=60 [facility] Comment on above: Order Comment: Injur y/Trauma or Illness?:Illness/Other How long have you had these symptoms (acute/chronic)?:Unknown Reason for exam?:memory problems over the last 2 years: hx of tongue cancer: Type of Exam?:Unknown Additional signs and symptoms?:n Result Comment: Marv mated GFR was calculated using the 2020 CKD-EPI creatinine equation. Performed By: #### 4 6124 #### LAB [address] [place], [place] [address] Gonsalo Tello M.D. [id number] Glucose [Mass/Vol] 125 mg/dL High 65-99 [facility] Comment on above: Order Comment: Injur y/Trauma or Illness?:Illness/Other How long have you had these symptoms (acute/chronic)?:Unknown Reason for exam?:memory problems over the last 2 years: hx of tongue cancer: Type of Exam?:Unknown Additional signs and symptoms?:n Performed By: #### 4 6124 #### LAB [address] [place], [place] [address] Gnosalo Tello M.D. [id number] HCO3 (Bld) [Moles/Vol] 27 mmol/L Normal 21-32 [facility] Comment on above: Order Comment: Injur y/Trauma or Illness?:Illness/Other How long have you had these symptoms (acute/chronic)?:Unknown Reason for exam?:memory problems over the last 2 years: hx of tongue cancer: Type of Exam?:Unknown Additional signs and symptoms?:n Performed By: #### 4 6124 ####[facility] LAB [address] [place], [place] [address] Gonsalo Tello M.D. [id number] Potassium [Moles/Vol] 3.8 mmol/L Normal 3.5-5.1 [facility] Comment on above: Order Comment: Injur y/Trauma or Illness?:Illness/Other How long have you had these symptoms (acute/chronic)?:Unknown Reason for exam?:memory problems over the last 2 years: hx of tongue cancer: Type of Exam?:Unknown Additional signs and symptoms?:n Performed By: #### 4 6124 #### LAB [address] [place], [place] [address] Gonsalo Tello M.D. [id number] Sodium [Moles/Vol] 144 mmol/L Normal 135-145 [facility] Comment on above: Order Comment: Injur y/Trauma or Illness?:Illness/Other How long have you had these symptoms (acute/chronic)?:Unknown Reason for exam?:memory problems over the last 2 years: hx of tongue cancer: Type of Exam?:Unknown Additional signs and symptoms?:n Performed By: #### 4 6124 #### LAB [address] [address] Gonsalo Tello M.D. [id number] Urea nitrogen [Mass/Vol] 28 mg/dL High 8-25 [facility] Comment on above: Order Comment: Injur y/Trauma or Illness?:Illness/Other How long have you had these symptoms (acute/chronic)?:Unknown Reason for exam?:memory problems over the last 2 years: hx of tongue cancer: Type of Exam?:Unknown Additional signs and symptoms?:n Performed By: #### 4 6124 #### LAB [address] [address] Gonsalo Tello M.D. [id number] Urea nitrogen/Creatinine [Mass ratio] 28.9 mg/mg High 10.0-20.0 [facility] Comment on above: Order Comment: Injur y/Trauma or Illness?:Illness/Other How long have you had these symptoms (acute/chronic)?:Unknown Reason for exam?:memory problems over the last 2 years: hx of tongue cancer: Type of Exam?:Unknown Additional signs and symptoms?:n Performed By: #### 4 6186 #### LAB [address] [id number] Gonsalo Tello M.D. [id number] BLOOD CULTURE AEROBIC/ANAERO BICon 11-17-2024 BLOOD CULTURE AEROBIC/ANAEROBIC BLOOD CULTURE No Growth after 5 days Normal [facility] Comment on above: Performed By: #### 4 6477 #### LAB [address] [id number] Gonsalo Tello M.D. [id number] Basic metabolic 2000 panelon 11-17-2024 Anion gap [Moles/Vol] 19 mmol/L 10 - 2 0 mmol/L [facility] Calcium [Mass/Vol] 9.7 mg/dL 8.4 - 10. 2 mg/dL [facility] Chloride [Moles/Vol] 102 mmol/L 98 - 10 8 mmol/L [facility] Creatinine [Mass/Vol] 0.97 mg/dL 0.80 - 1.30 mg/dL [facility] GFR/1.73 sq M.predicted CKD-EPI (S/P/Bld) [Vol rate/Area] 82 - PINF [facility] Comment on above: Estimated GFR was ca lculated using the 2020 CKD-EPI creatinine equation. Glucose [Mass/Vol] 125 mg/dL High 65 - 99 mg/dL [facility] HCO3 [Moles/Vol] 27 mmol/L 21 - 32 mmol/L [facility] Potassium [Moles/Vol] 3.8 mmol/L 3.5 - 5.1 mmol/L [facility] Sodium [Moles/Vol] 144 mmol/L 135 - 145 mmol/L [facility] Urea nitrogen [Mass/Vol] 28 mg/dL High 8 - 25 mg/dL [facility] Urea nitrogen/Creatinine [Mass ratio] 28.9 mg/mg High 10.0 - 20.0 [facility] has implemented the eGFR calculation approach that does not have a coefficient for race that conforms to the NKF-ASN Task Force Recommendations. [facility] CBC Auto Differentialon Basophils (Bld) [#/Vol] 0.04 10*3/uL [facility] Basophils/100 WBC (Bld) 0.2 % [facility] Eosinophils (Bld) [#/Vol] 0 10*3/uL [facility] Eosinophils/100 WBC (Bld) 0 % [facility] Erythrocyte distribution width (RBC) [Entitic vol] 13.2 % 11.6 - 14.8 % [facility] Hematocrit (Bld) [Volume fraction] 45.4 % 41.0 - 53.0 % [facility] Hemoglobin (Bld) [Mass/Vol] 14.6 g/dL 13.5 - 17.5 g/dL [facility] Immature granulocytes (Bld) [#/Vol] 0.1 10*3/uL [facility] Immature granulocytes/100 WBC (Bld) 0.6 % [facility] Comment on above: The IG parameter is the percentage of metamyelocytes, myelocytes and promyelocytes. An immature granulocyte count (IG) of 1% or more suggests the possibility of infection, an IG count of 3% is very likely related to an infection. Interpretation and review of laboratory results Abnormal [facility] Lymphocytes (Bld) [#/Vol] 0.21 10*3/uL Low [facility] Lymphocytes/100 WBC (Bld) 1.2 % [facility] MCH (RBC) [Entitic mass] 30 pg 26.0 - 34.0 pg [facility] MCHC (RBC) [Mass/Vol] 32.2 g/dL 31.0 - 37.0 g/dL [facility] MCV (RBC) [Entitic vol] 93.2 fL 80.0 - 100.0 fL [facility] Monocytes (Bld) [#/Vol] 1.13 10*3/uL [facility] Monocytes/100 WBC (Bld) 6.2 % [facility] Neutrophils (Bld) [#/Vol] 16.64 10*3/uL [facility] Neutrophils/100 WBC (Bld) 91.8 % [facility] Nucleated RBC (Bld) [#/Vol] 0 10*3/uL [facility] Nucleated RBC/100 WBC (Bld) [Ratio] 0 % [facility] Platelet mean volume (Bld) [Entitic vol] 11.9 fL 9.4 - 12.4 fL [facility] Platelets (Bld) [#/Vol] 173 10*3/uL [facility] RBC (Bld) [#/Vol] 4.87 10*6/uL [facility] ealt WBC (Bld) [#/Vol] 18.12 10*3/uL [facility] CBC WITH AUTO DIFFERENTIALon 11-17-2024 AUTO NRBC 0.0 % Normal [facility] Comment on above: Performed By: #### L [id number] ####[facility] LAB [address] [place], [place] [address] Gonsalo Tello M.D. [id number] AUTO NRBC ABS COUNT 0.00 K/mcL Normal 0.00-0.00 [facility] Comment on above: Performed By: #### L [id number] #### LAB [address] [address] Gonsalo Tello M.D. [id number] BASOPHILS ABSOLUTE COUNT 0.04 K/mcL Normal 0.00-0.30 [facility] Comment on above: Performed By: #### L [id number] #### LAB [address] [address] Gonsalo Tello M.D. [id number] Basophils/100 WBC (Bld) 0.2 % Normal [facility] Comment on above: Performed By: #### L [id number] #### LAB [address] [address] Gonsalo Tello M.D. [id number] Eosinophils (Bld) [#/Vol] 0.00 10*3/uL Normal 0.00-0.50 [facility] Comment on above: Performed By: #### L [id number] #### LAB [address] [address] Gonsalo Tello M.D. [id number] Eosinophils/100 WBC (Bld) 0.0 % Normal [facility] Comment on above: Performed By: #### L [id number] #### LAB [address] [address] Gonsalo Tello M.D. [id number] Erythrocyte distribution width (RBC) [Ratio] 13.2 % Normal 11.6-14.8 [facility] Comment on above: Performed By: #### L [id number] #### LAB [address] [address] Gonsalo Tello M.D. [id number] Hematocrit (Bld) [Volume fraction] 45.4 % Normal 41.0-53.0 [facility] Comment on above: Performed By: #### L [id number] #### LAB [address] [place] [address] Gonsalo Tello M.D. [id number] Hemoglobin (Bld) [Mass/Vol] 14.6 g/dL Normal 13.5-17.5 [facility] Comment on above: Performed By: #### L [id number] #### LAB [address] [address] Gonsalo Tello M.D. [id number] IG ABSOLUTE 0.10 K/mcL Normal 0.00-0.30 [facility] Comment on above: Performed By: #### L [id number] #### LAB [address] [address] Gonsalo Tello M.D. [id number] IG PERCENT 0.60 % [facility] Comment on above: Result Comment: The IG parameter is the percentage of metamyelocytes, myelocytes and promyelocytes. An immature granulocyte count (IG) of 1% or more suggests the possibility of infection, an IG count of 3% is very likely related to an infection. Performed By: #### L [id number] #### LAB [address] [place] [address] Gonsalo Tello M.D. [id number] Lymphocytes (Bld) [#/Vol] 0.21 10*3/uL Low 0.90-4.00 [facility] Comment on above: Performed By: #### L [id number] #### LAB [address] [place] [address] Gonsalo Tello M.D. [id number] Lymphocytes/100 WBC (Bld) 1.2 % Normal [facility] Comment on above: Performed By: #### L [id number] #### LAB [address] [address] Gonsalo Tello M.D. [id number] MCH (RBC) [Entitic mass] 30.0 pg Normal 26.0-34.0 [facility] Comment on above: Performed By: #### L [id number] #### LAB [address] [address] Gonsalo Tello M.D. [id number] MCV (RBC) [Entitic vol] 93.2 fL Normal 80.0-100.0 [facility] Comment on above: Performed By: #### L [id number] #### LAB [address] [address] Gonsalo Tello M.D. [id number] MEAN CORPUSCULAR HEMOGLOBIN CONC 32.2 g/dL Normal 31.0-37.0 [facility] Comment on above: Performed By: #### L [id number] #### LAB [address] [address] Gonsalo Tello M.D. [id number] Monocytes (Bld) [#/Vol] 1.13 10*3/uL High 0.30-0.90 [facility] Comment on above: Performed By: #### L [id number] #### LAB [address] [address] Gonsalo Tello M.D. [id number] Monocytes/100 WBC (Bld) 6.2 % Normal [facility] Comment on above: Performed By: #### L [id number] #### LAB [address] [address] Gonsalo Tello M.D. [id number] NEUTROPHILS ABSOLUTE COUNT 16.64 K/mcL High 1.70-7.00 [facility] Comment on above: Performed By: #### L [id number] #### LAB [address] [address] Gonsalo Tello M.D. [id number] Neutrophils/100 WBC (Bld) 91.8 % Normal [facility] Comment on above: Performed By: #### L [id number] #### LAB [address] [address] Gonsalo Tello M.D. [id number] Platelet mean volume (Bld) [Entitic vol] 11.9 fL Normal 9.4-12.4 [facility] Comment on above: Performed By: #### L [id number] #### LAB [address] [address] Gonsalo Tello M.D. [id number] Platelets (Bld) [#/Vol] 173 10*3/uL Normal 150-400 [facility] Comment on above: Performed By: #### L [id number] #### LAB [address] [address] Gonsalo Tello M.D. [id number] RBC (Bld) [#/Vol] 4.87 10*6/uL Normal 4.50-5.90 [facility] Comment on above: Performed By: #### L [id number] ####[facility] LAB [address] [place], [place] [address] Gonsalo Tello M.D. [id number] WBC (Bld) [#/Vol] 18.12 10*3/uL High 4.50-11.00 [facility] Comment on above: Performed By: #### L [id number] ####[facility] LAB [address] [place], [place] [address] Gonsalo Tello M.D. [id number] COVID-19/INFLUENZA A,B MOLEC ULARon 11-17-2024 SARS-CoV-2 (COVID-19) Ab IA Ql SARS-COV-2 (FLORINDA) Not Detected INFLUENZA A (FLORINDA) Not Detected INFLUENZA B (FLORINDA) Not Detected Normal Not Detected [facility] Comment on above: Performed By: #### L [id number] #### LAB [address] [place], [place] [address] Gonsalo [address] M[address]D. [id number] CT Abdomen and Pelvis W cont rast Sen 11-17-2024 1. Right upper lobe and middle lobe airspace disease compatible with pneumonia. Mildly enlarged hilar and mediastinal lymph nodes likely reactive. Recommend follow-up to assure resolution. 2. Infrarenal abdominal aortic aneurysm. Recommend continued CT surveillance. 3. Findings suggestive of COPD. 4. Enlarged prostate. Workstation ID: [id number] [employer] [facility] EX[facility]ATION: CTA PULM ART AND CT ABD PELVIS WITH IV CONTRAST HISTORY: ORDERING SYSTEM PROVIDED HISTORY: Hypoxia, hypotension, TECHNOLOGIST PROVIDED HISTORY: Illness/Other Reason for exam: fever, sob, hx of hypotention, cancer Encounter Type: Initial Additional signs and symptoms: . ORDERING SYSTEM PROVIDED DIAGNOSIS CODES: TECHNIQUE: CT angiogram the chest was performed following intravenous injection of iodinated contrast. Post contrast imaging of the pelvis performed. Coronal and sagittal reformatted images submitted. 3D MIP reformatted images were created on a separate workstation Dose reduction techniques were achieved by using automated exposure control and/or adjustment of mA and/or kV according to patient size and/or use of iterative reconstruction technique. COMPARISON: None. CONTRAST: IOPAMIDOL 370 MG IODINE/ML (76 %) INTRAVENOUS SOLUTION - 75 mL, FINDINGS: Chest: Extensive airspace disease in the right upper lobe and to a lesser degree right middle lobe. Dependent bilateral lower lobe atelectasis. There are lucencies in the pulmonary architecture, question COPD. Trachea and mainstem bronchi are patent. There are no pleural or pericardial abnormalities. The thoracic aorta is of normal caliber and contour. Severe stenosis of the proximal left subclavian artery. SVC is patent. The there is no intraluminal filling defect, or abrupt vessel termination seen to suggest acute pulmonary embolus. There is no intraluminal filling defect, or a vessel termination seen to suggest acute pulmonary embolus. There are no enlarged lymph nodes in the axillary, or left hilar regions. Mildly enlarged right hilar lymph node measures 2.2 cm. Mildly enlarged subcarinal lymph node measuring 1 2 cm. Abdomen-pelvis: Liver spleen, adrenals and pancreas unremarkable. There are 2 low-attenuation lesions in the left kidney. The lesion which is large enough to characterize measure simple fluid, measuring 3.1 cm. There 6 low-attenuation lesions in the right kidney. The lesion which is large enough to characterize measures simple fluid and 1.9 cm compatible with a simple cyst. Gallbladder is present. No free air, or free fluid is seen in the abdomen or pelvis. Mild colonic diverticulosis is present without evidence for diverticulitis. Small hiatal hernia. Percutaneous gastrostomy tube. There is an infrarenal abdominal aortic aneurysm measuring 3.2 cm. No periaortic fluid or inflammatory stranding. No enlarged lymph nodes are seen in the abdomen or pelvis. Small mesenteric fat containing left inguinal hernia. The prostate is enlarged. [employer] Eugenio Hargrove MD - 11/17/2024 EXAMINATION: CTA PULM ART AND CT ABD PELVIS WITH IV CONTRAST HISTORY: ORDERING SYSTEM PROVIDED HISTORY: Hypoxia, hypotension, TECHNOLOGIST PROVIDED HISTORY: Illness/Other Reason for exam: fever, sob, hx of hypotention, cancer Encounter Type: Initial Additional signs and symptoms: . ORDERING SYSTEM PROVIDED DIAGNOSIS CODES: TECHNIQUE: CT angiogram the chest was performed following intravenous injection of iodinated contrast. Post contrast imaging of the pelvis performed. Coronal and sagittal reformatted images submitted. 3D MIP reformatted images were created on a separate workstation Dose reduction techniques were achieved by using automated exposure control and/or adjustment of mA and/or kV according to patient size and/or use of iterative reconstruction technique. COMPARISON: None. CONTRAST: IOPAMIDOL 370 MG IODINE/ML (76 %) INTRAVENOUS SOLUTION - 75 mL, FINDINGS: Chest: Extensive airspace disease in the right upper lobe and to a lesser degree right middle lobe. Dependent bilateral lower lobe atelectasis. There are lucencies in the pulmonary architecture, question COPD. Trachea and mainstem bronchi are patent. There are no pleural or pericardial abnormalities. The thoracic aorta is of normal caliber and contour. Severe stenosis of the proximal left subclavian artery. SVC is patent. The there is no intraluminal filling defect, or abrupt vessel termination seen to suggest acute pulmonary embolus. There is no intraluminal filling defect, or a vessel termination seen to suggest acute pulmonary embolus. There are no enlarged lymph nodes in the axillary, or left hilar regions. Mildly enlarged right hilar lymph node measures 2.2 cm. Mildly enlarged subcarinal lymph node measuring 1 2 cm. Abdomen-pelvis: Liver spleen, adrenals and pancreas unremarkable. There are 2 low-attenuation lesions in the left kidney. The lesion which is large enough to characterize measure simple fluid, measuring 3.1 cm. There 6 low-attenuation lesions in the right kidney. The lesion which is large enough to characterize measures simple fluid and 1.9 cm compatible with a simple cyst. Gallbladder is present. No free air, or free fluid is seen in the abdomen or pelvis. Mild colonic diverticulosis is present without evidence for diverticulitis. Small hiatal hernia. Percutaneous gastrostomy tube. There is an infrarenal abdominal aortic aneurysm measuring 3.2 cm. No periaortic fluid or inflammatory stranding. No enlarged lymph nodes are seen in the abdomen or pelvis. Small mesenteric fat containing left inguinal hernia. The prostate is enlarged. IMPRESSION: 1. Right upper lobe and middle lobe airspace disease compatible with pneumonia. Mildly enlarged hilar and mediastinal lymph nodes likely reactive. Recommend follow-up to assure resolution. 2. Infrarenal abdominal aortic aneurysm. Recommend continued CT surveillance. 3. Findings suggestive of COPD. 4. Enlarged prostate. Workstation ID: [id number] [facility] Radiology Study observation (narrative) [facility] CT Abdomen and Pelvis W cont rast IVOrdered By: Eugenio Tompkins on 11-17-2024 [facility] Work Phone: CTA PULM ART AND CT ABD PELV IS WITH IV CONTRASTon 11-17-[address] ABD PELVIS WITH IV CONTRAST EXAMINATION: CTA PULM ART AND CT ABD PELVIS WITH IV CONTRAST HISTORY: ORDERING SYSTEM PROVIDED HISTORY: Hypoxia, hypotension, TECHNOLOGIST PROVIDED HISTORY: Illness/Other Reason for exam: fever, sob, hx of hypotention, cancer Encounter Type: Initial Additional signs and symptoms: . ORDERING SYSTEM PROVIDED DIAGNOSIS CODES: TECHNIQUE: CT angiogram the chest was performed following intravenous injection of iodinated contrast. Post contrast imaging of the pelvis performed. Coronal and sagittal reformatted images submitted. 3D MIP reformatted images were created on a separate workstation Dose reduction techniques were achieved by using automated exposure control and/or adjustment of mA and/or kV according to patient size and/or use of iterative reconstruction technique. COMPARISON: None. CONTRAST: IOPAMIDOL 370 MG IODINE/ML (76 %) INTRAVENOUS SOLUTION - 75 mL, FINDINGS: Chest: Extensive airspace disease in the right upper lobe and to a lesser degree right middle lobe. Dependent bilateral lower lobe atelectasis. There are lucencies in the pulmonary architecture, question COPD. Trachea and mainstem bronchi are patent. There are no pleural or pericardial abnormalities. The thoracic aorta is of normal caliber and contour. Severe stenosis of the proximal left subclavian artery. SVC is patent. The there is no intraluminal filling defect, or abrupt vessel termination seen to suggest acute pulmonary embolus. There is no intraluminal filling defect, or a vessel termination seen to suggest acute pulmonary embolus. There are no enlarged lymph nodes in the axillary, or left hilar regions. Mildly enlarged right hilar lymph node measures 2.2 cm. Mildly enlarged subcarinal lymph node measuring 1 2 cm. Abdomen-pelvis: Liver spleen, adrenals and pancreas unremarkable. There are 2 low-attenuation lesions in the left kidney. The lesion which is large enough to characterize measure simple fluid, measuring 3.1 cm. There 6 low-attenuation lesions in the right kidney. The lesion which is large enough to characterize measures simple fluid and 1.9 cm compatible with a simple cyst. Gallbladder is present. No free air, or free fluid is seen in the abdomen or pelvis. Mild colonic diverticulosis is present without evidence for diverticulitis. Small hiatal hernia. Percutaneous gastrostomy tube. There is an infrarenal abdominal aortic aneurysm measuring 3.2 cm. No periaortic fluid or inflammatory stranding. No enlarged lymph nodes are seen in the abdomen or pelvis. Small mesenteric fat containing left inguinal hernia. The prostate is enlarged. IMPRESSION: 1. Right upper lobe and middle lobe airspace disease compatible with pneumonia. Mildly enlarged hilar and mediastinal lymph nodes likely reactive. Recommend follow-up to assure resolution. 2. Infrarenal abdominal aortic aneurysm. Recommend continued CT surveillance. 3. Findings suggestive of COPD. 4. Enlarged prostate. Workstation ID: [id number] Dictated by: EUGENIO TOMPKINS on FriNov 17, 2024 9:53:52 PM EDT Transcribed by: EUGENIO TOMPKINS on FriNov 17, 2024 9:53:52 PM EDT Finalized by: EUGENIO TOMPKINS on FriNov 17, 2024 9:53:52 PM EDT [facility] Comment on above: Order Comment: Injur y/Trauma or Illness?:Illness/Other How long have you had these symptoms (acute/chronic)?:Acute Reason for exam?:fever, sob, hx of hypotention, cancer Type of Exam?:Initial Additional signs and symptoms?:. Central Lineon 11-17-2024 Antonio Fontaine DO 11/17/2024 10:59 PM Central Line Date/Time: 11/17/2024 10:56 PM Performed by: Antonio Fontaine DO Authorized by: Lisa Lance MD Written consent: obtained Consent given by: patient and spouse Indications: vascular access Anesthesia: local infiltration Anesthesia: Local Anesthetic: lidocaine 1% without epinephrine Anesthetic total: 7 mL Preparation: skin prepped with 2% chlorhexidine Sterile barriers: all five maximum sterile barriers used - cap, mask, sterile gown, sterile gloves, and large sterile sheet Hand hygiene: hand hygiene performed prior to central venous catheter insertion Patient position: Trendelenburg Catheter type: triple lumen Catheter size: 7.5 Fr Ultrasound guidance: yes Number of attempts: 2 attempts at left subclavian, 1 attempt at right internal jugular. Post-procedure: line sutured Assessment: no pneumothorax on x-ray, blood return through all ports, free fluid flow and placement verified by x-ray Patient tolerance: patient tolerated the procedure well with no immediate complications Comments: After discussion of risks and benefits, given patient's history of throat cancer and subsequent surgery, radiation and chemo with potential for scar tissue in the neck we elected to proceed with subclavian line placement. Unfortunately I was not able to place a guidewire after vascular access with left subclavian attempt. I then proceeded with ultrasound guided right internal jugular line placement which was successful on first attempt without complication. [facility] ED Procedureon 11-17-2024 ED Procedure Central Line Date/Time: 11/17/2024 10:56 PM Performed by: Antonio Fotnaine DO Authorized by: Lisa Lance MD Written consent: obtained Consent given by: patient and spouse Indications: vascular access Anesthesia: local infiltration Anesthesia: Local Anesthetic: lidocaine 1% without epinephrine Anesthetic total: 7 mL Preparation: skin prepped with 2% chlorhexidine Sterile barriers: all five maximum sterile barriers used - cap, mask, sterile gown, sterile gloves, and large sterile sheet Hand hygiene: hand hygiene performed prior to central venous catheter insertion Patient position: Trendelenburg Catheter type: triple lumen Catheter size: 7.5 Fr Ultrasound guidance: yes Number of attempts: 2 attempts at left subclavian, 1 attempt at right internal jugular. Post-procedure: line sutured Assessment: no pneumothorax on x-ray, blood return through all ports, free fluid flow and placement verified by x-ray Patient tolerance: patient tolerated the procedure well with no immediate complications Comments: After discussion of risks and benefits, given patient's history of throat cancer and subsequent surgery, radiation and chemo with potential for scar tissue in the neck we elected to proceed with subclavian line placement. Unfortunately I was not able to place a guidewire after vascular access with left subclavian attempt. I then proceeded with ultrasound guided right internal jugular line placement which was successful on first attempt without complication. AUTHENTICATED BY ANTONIO FONTAINE, ON 11/17/2024 22:59:06 [facility] ED Prov Noteon 11-17-2024 ED Prov Note PCP - Ulices Clark DO Chief Complaint Patient presents with - Shortness of Breath HPI Bill is a 74-year-old gentleman presenting here for evaluation of fever, shortness of breath, malaise, fatigue. Symptoms have come on over the last 24 hours. He has mostly dry cough. no recent antibiotics, travel or definite sick contacts. No vomiting. He has history of tongue cancer and feeding tube in place. MDM/COURSE I did personally review Amy's past medical history, surgical history, social history, as well as family history (when relevant). In this case, I also oversaw the his drug management by reviewing his medication list, allergy list, as well as the medications that I prescribed during the ED course and/or recommended as an out-patient (including possible OTC medications such as acetaminophen, NSAIDs , etc). 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 - Oropharyngeal dysphagia 08/09/2022 - Hypertension 09/25/2023 - Gastroesophageal reflux disease 09/25/2023 - Hyperlipidemia 09/25/2023 - Secondary polycythemia 09/15/2014 - Bilateral leg edema 09/25/2023 - Centrilobular emphysema (HCC) 06/04/2023 - Degenerative joint disease 09/25/2023 - Benign prostatic hyperplasia with lower urinary tract symptoms 07/31/2016 - S/P percutaneous endoscopic gastrostomy ([facility] tube placement [facility]) 09/25/2023 - Anxiety and depression 09/25/2023 - Migraine without aura and without status migrainosus, not intractable 09/25/2023 - AAA (abdominal aortic aneurysm) 11/19/2023 - Postnasal drip 11/22/2023 - Hyponatremia 11/22/2023 - Difficulty sleeping 11/22/2023 - Left inguinal hernia 12/17/2023 - Constipation 12/17/2023 - Venous insufficiency 12/18/2023 - Pulmonary embolus, right 12/22/2023 - Pulmonary lesion, right 01/13/2024 - History of aspiration pneumonia 06/20/2024 - Chronic respiratory failure with hypoxia, on home oxygen therapy (HCC) 12/31/2023 - Acute conjunctivitis of left eye 09/18/2024 - Respiratory crackles of both lungs 09/18/2024 - Memory loss 11/16/2024 Resolved Ambulatory Problems Diagnosis Date Noted - Chronic obstructive pulmonary disease (HCC) 09/25/2023 - Edema of lower extremity 09/25/2023 - Vomiting 10/23/2023 - Acute hypoxemic respiratory failure (HCC) 06/07/2024 Past Medical History: Diagnosis Date - Arthritis - Asthma - Benign prostatic hyperplasia - Cancer (HCC) 2008 - Chronic kidney disease (CKD) stage G1/A2, glomerular filtration rate (GFR) equal to or greater than 90 mL/min/1.73 square meter and albuminuria creatinine ratio between 30-299 mg/g - COPD (chronic obstructive pulmonary disease) (HCC) - ED (erectile dysfunction) - Edema leg - GERD (gastroesophageal reflux disease) - Hepatic steatosis - Insomnia - Lung disorder - Prediabetes ED MEDICATIONS GIVEN: Medications sodium chloride 0.9 % (NS) infusion - ADS Override Pull ( Canceled Entry 11/17/241854) sodium chloride (PF) (NS) flush 5 mL (has no administration in time range) And sodium chloride 0.9% (NS) (has no administration in time range) norepinephrine (LEVOPHED) 4 mg in sodium chloride 0.9% (NS) 250 mL infusion (has no administration in time range) And VASOpressin (PITRESSIN) 0.2 unit/mL infusion (has no administration in time range) lactated ringers bolus 1,000 mL (has no administration in time range) cefTRIAXone (ROCEPHIN) IVPB 2 g (premix) (0 mg Intravenous Stopped 11/17/241925) azithromycin (ZITHROMAX) 500 mg in sodium chloride (NS) 0.9% 250 mL (vialmate) (0 mg Intravenous Stopped 11/17/242035) sodium chloride 0.9% (NS) bolus 2,397 mL (0 mL Intravenous Stopped 11/17/242129) acetaminophen (TYLENOL) solution 1,000 mg (1,000 mg Tube Given 11/17/241925) sodium chloride (PF) (NS) 0.9 % contrast line flush 10 mL (10 mL Intravenous Given 11/17/242120) And sodium chloride (PF) (NS) 0.9 % contrast line flush 80 mL (80 mL Intravenous Given 11/17/242120) iopamidoL (ISOVUE-370) 370 mg iodine /mL (76 %) injection 75 mL (75 mL Intravenous Contrast Administered 11/17/242119) After reviewing the items above, I did look at previous medical documentation, such as recent hospitalizations, office visits, and/or recent consultations with PCP/specialist. SDOH: Another factor that I considered in Amy's care was his Social Determinants of Health (SDOH). During this ED encounter, he did NOT appear to have any significant issues identified. LAB TESTING: Labs were obtained during this encounter. Labs were compared to prior values lactic acid 3. Troponin 46, white blood cells 18 RADIOLOGY: I did consider radiological studies for Amy's care today. Radiology testing was notable for CT of the chest concerning for right middle lobe infiltrate on my independent review (more content not included)... Normal [facility] EKGon 11-17-2024 [facility] HEPATIC FUNCTION PANELon Albumin [Mass/Vol] 4.4 g/dL Normal 3.2-5.2 [facility] Comment on above: Performed By: #### [id number] #### LAB [address] [address] Gonsalo Tello M.D. [id number] ALP [Catalytic activity/Vol] 94 U/L Normal 40-150 [facility] Comment on above: Performed By: #### 4 [id number] ####[facility] [address] [address] Gonsalo Tello M.D. [id number] ALT [Catalytic activity/Vol] 17 U/L Normal 0-50 U/L [facility] Comment on above: Performed By: #### 4 [id number] #### LAB [address] [address] Gonsalo Tello M.D. [id number] AST [Catalytic activity/Vol] 26 U/L Normal 0-50 U/L [facility] Comment on above: Performed By: #### 4 [id number] ####[facility] [address] [address] Gonsalo Tello M.D. [id number] Bilirubin [Mass/Vol] 0.7 mg/dL Normal 0.0-1.3 [facility] Comment on above: Performed By: #### 4 [id number] #### LAB [address] [address] Gonsalo Tello M.D. [id number] Bilirubin.indirect [Mass/Vol] 0.3 mg/dL Normal 0.0-0.4 [facility] Comment on above: Performed By: #### 4 [id number] #### LAB [address], [place] [address] Gonsalo Tello M.D. [id number] Protein [Mass/Vol] 7.5 g/dL Normal 6.0-8.0 [facility] Comment on above: Performed By: #### 4 [id number] #### LAB [address], [place] [address] Gonsalo Tello M.D. [id number] Hepatic function 2000 panelo n 11-17-2024 Albumin [Mass/Vol] 4.4 g/dL 3.2 - 5.2 g/dL [facility] ALP [Catalytic activity/Vol] 94 U/L 40 - 150 U/L [facility] ALT [Catalytic activity/Vol] 17 U/L 0 - 50 U/L [facility] AST [Catalytic activity/Vol] 26 U/L 0 - 50 U/L [facility] Bilirubin [Mass/Vol] 0.7 mg/dL 0.0 - 1 .3 mg/dL [facility] Bilirubin.conjugated [Mass/Vol] 0.3 mg/dL 0.0 - 0.4 mg/dL [facility] Interpretation and review of laboratory results Normal [facility] Protein [Mass/Vol] 7.5 g/dL 6.0 - 8.0 g/dL [facility] INR Coag (PPP) [Relative angelic e]on 11-17-2024 Interpretation and review of laboratory results Abnormal [facility] PT Coag (PPP) [Time] 16.5 s High [facility] During the induction phase of oral anticoagulation, the INR may not reflect the anticoagulation status of the patient. Therapeutic ranges for INR's are: Most clinical situations: INR 2.0-3.0 Mechanical Prosthetic Valve: INR 2.5-3.5 Critical: INR >5.0 [facility] Influenza virus A and B RNA and SARS-CoV-2 (COVID-19) N gene panel ROBERTA+probe (Resp)Ordered By: Lissette Colon on 11-17-2024 FLUAV RNA ROBERTA+probe Ql (Unsp spec) Not detected Not Detected [facility] FLUBV RNA ROBERTA+probe Ql (Unsp spec) Not detected Not Detected [facility] Interpretation and review of laboratory results Normal [facility] SARS-CoV-2 (COVID-19) RNA ROBERTA+probe Ql (Resp) Not detected Not Detected [facility] LACTIC ACID, PLASMAon 2024 LACTIC ACID, PLASMA 2.1 mmol/L High 0.6-2.0 [facility] Comment on above: Performed By: #### 4 [id number] #### LAB [address], [place] [address] Gonsalo Tello M.D. [id number] LIPASEon 11-17-2024 Lipase [Catalytic activity/Vol] 10 U/L Low 15-65 [facility] Comment on above: Performed By: #### 4 [id number] #### [facility] [address] [place], [place] [address] Amauri Barone M.D. [id number] Lipaseon 11-17-2024 Lipase [Catalytic activity/Vol] 10 U/L Low 15 - 65 U/L [facility] No Panel Informationon 11-17 Extra Tube Hold for add-ons. [facility] Comment on above: Auto resulted. [facility] Interpretation and review of laboratory results Abnormal [facility] POC VENOUS BLOOD GAS PANEL-P ULM - RALSon 11-17-2024 BASE EXCESS, VENOUS 4.6 High -2.0-2.0 [facility] CALCIUM IONIZED 4.6 mg/dL Normal 4.5-5.3 [facility] CARBOXYHEMOGLOBIN 2.8 % of total Hb High <=1.5 [facility] Comment on above: Result Comment: Refe rence Ranges: [place] Non-smokers: <1.5% Smokers: 1.5-5.0% Heavy Smokers: 5.0-9.0% Chloride [Moles/Vol] 103 mmol/L Normal 98-108 [facility] FIO2 21 Normal [facility] Glucose [Mass/Vol] 117 mg/dL High 65-99 [facility] HCO3 (Bld) [Moles/Vol] 31.5 mmol/L High 24.0-28.0 [facility] Hematocrit (Bld) [Volume fraction] 46.1 % Normal 41.0-53.0 [facility] Hemoglobin (Bld) [Mass/Vol] 15.0 g/dL Normal 13.5-17.5 [facility] LACTIC ACID, WHOLE BLOOD 3.0 mmol/L High 0.6-2.0 [facility] METHEMOGLOBIN 0.1 % Normal 0.0-2.0 [facility] O2HB 69.1 % Normal No established reference range [facility] Oxygen saturation in Blood 71.2 % High 40.0-70.0 [facility] PCO2 VENOUS 54.8 mm Hg High 41.0-51.0 [facility] PH VENOUS 7.37 Normal 7.32-7.42 [facility] PO2 VENOUS 40 mm Hg Normal 25-40 [facility] Potassium [Moles/Vol] 3.6 mmol/L Normal 3.5-5.1 [facility] Sodium [Moles/Vol] 146 mmol/L High 135-145 [place] [facility] SPECIMEN SOURCE RADIANCE Not specified Normal [facility] POC Venous Blood Gas Panel-P mon 11-17-2024 Base excess Calc (BldV) [Moles/Vol] 4.6 mmol/L High -2.0 - 2.0 [facility] Calcium.ionized [Mass/Vol] 4.6 mg/dL 4.5 - 5.3 mg/dL [facility] Carboxyhemoglobin (BldA) [Mass fraction] 2.8 High [facility] Comment on above: Reference Ranges: [facility] Non-smokers: <1.5% Smokers: 1.5-5.0% Heavy Smokers: 5.0-9.0% CO2 (BldV) [Partial pressure] 54.8 mm[Hg] High [facility] Glucose post fast [Mass/Vol] 117 mg/dL High 65 - 99 mg/dL [facility] Hematocrit (BldA) [Volume fraction] 46.1 % 41.0 - 53.0 % [facility] Hemoglobin (Bld) [Mass/Vol] 15 g/dL 13.5 - 17.5 g/dL [facility] Inhaled oxygen concentration 21 % [facility] Interpretation and review of laboratory results Abnormal [facility] Lactate [Moles/Vol] 3 mmol/L High 0.6 - 2. 0 mmol/L [facility] Methemoglobin (BldA) [Mass fraction] 0.1 % 0.0 - 2.0 % [facility] Oxygen (BldV) [Partial pressure] 40 mm[Hg] [facility] Oxygen saturation in Venous blood 71.2 % High 40.0 - 70.0 % [facility] Oxyhemoglobin (BldA) [Mass fraction] 69.1 % -100.0 - 101.0 % [facility] pH (BldV) 7.37 [pH] 7.32 - 7.42 [facility] Specimen source Nom (Unsp spec) Not specified [facility] PT/INRon 11-17-2024 INR Coag (PPP) [Relative time] 1.3 {INR} High 0.8 - 1.1 [facility] INR Coag (PPP) [Relative time] 1.3 {INR} High 0.8-1.1 [facility] Comment on above: Order Comment: Ritesh pelayo the induction phase of oral anticoagulation, the INR may not reflect the anticoagulation status of the patient. Therapeutic ranges for INR's are:Most clinical situations: INR 2.0-3.0Mechanical Prosthetic Valve: INR 2.5-3.5Critical: INR >5.0 Performed By: #### 4 [id number] #### LAB [address] [address] Gonsalo Tello M.D. [id number] PT Coag (PPP) [Time] 16.5 s High 11.8-14.3 [facility] Comment on above: Order Comment: Ritesh pelayo the induction phase of oral anticoagulation, the INR may not reflect the anticoagulation status of the patient. Therapeutic ranges for INR's are:Most clinical situations: INR 2.0-3.0Mechanical Prosthetic Valve: INR 2.5-3.5Critical: INR >5.0 Performed By: #### 4 [id number] #### LAB [address], [place] [address] Gonsalo Tello M.D. [id number] RESPIRATORY PCR PANELon RESPIRATORY PCR PANEL INFLUENZA A FILMAR RAY Not Detected INFLUENZA B FILM ARRAY Not Detected PARAINFLUENZA VIRUS 1 Not Detected PARAINFLUENZA VIRUS 2 Not Detected PARAINFLUENZA VIRUS 3 Not Detected PARAINFLUENZA VIRUS 4 Not Detected RESPIRATORY SYNCYTIAL VIRUS FILM ARRAY Not Detected HUMAN METAPNEUMOVIRUS Not Detected HUMAN RHINOVIRUS/ENTEROVIRUS Not Detected ADENOVIRUS FILM ARRAY Not Detected CORONAVIRUS 229E Not Detected CORONAVIRUS HKU1 Not Detected CORONAVIRUS NL63 Not Detected CORONAVIRUS OC43 Not Detected BORDETELLA PARAPERTUSSIS Not Detected BORDETELLA PERTUSSIS Not Detected MYCOPLASMA PNEUMONIAE Not Detected CHLAMYDIA PNEUMONIAE Not Detected SARS-COV-2 (BIOFIRE) Not Detected Normal Not Detected [facility] Comment on above: Performed By: #### L [id number] #### [facility] [address] [place] [address] Amauri Barone M.D. [id number] TROPONIN X 2 (NOW AND REPEAT IN 2 HOURS)on 11-17-2024 TROPONIN T DELTA % NG/L -4 % Normal <20% of Baseline Troponin [facility] Comment on above: Performed By: #### 4 [id number] #### LAB [address], [place] [address] Gonsalo Tello M.D. [id number] TROPONIN T DELTA CHANGE INTERPRETATION Probable non-acute cardiac injury or late presentation of acute injury. [facility] Comment on above: Performed By: #### 4 [id number] ####[facility] [address], [place] [address] Gonsalo Tello M.D. [id number] TROPONIN T NG/L 44 ng/L Off scale high <=22 [facility] Comment on above: Performed By: #### 4 [id number] #### LAB [address], [place] [address] Gonsalo Tello M.D. [id number] BASELINE TROPONIN T NG/L 46 ng/L Off scale high <=22 [facility] Comment on above: Performed By: #### 4 [id number] #### [facility] [address] [place], [place] [id number] Amauri Baorne M.D. [id number] TROPONIN T INTERPRETATION Possible acute cardiac injury. [facility] Comment on above: Performed By: #### 4 [id number] #### [facility] [address] [place] [address] Amauri Barone M.D. [id number] Troponin x 2 (Now and Repeat in 2 hours)on 11-17-2024 Inter Troponin T Delta Change Probable non-acute cardiac injury or late presentation of acute injury. [facility] Interpretation and review of laboratory results Abnormal [facility] Troponin T Delta % -4 % <20% of Baseline Troponin [facility] Troponin T.cardiac High sensitivity method [Mass/Vol] 44 ng/L Critically high NINF - 22 ng/L [facility] Troponin x 2 (Now and Repeat in 2 hours)Ordered By: Ana Hicks on 11-17-2024 Interpretation and review of laboratory results Abnormal [facility] Troponin T 46 ng/L Critically high NINF - 22 ng/L [facility] Troponin T Interpretation Possible acute cardiac injury. [facility] XR CHEST PA/APon 11-17-2024 XR CHEST PA/AP EXAMINATION: XR CHEST PA/AP 12/02/2020 1:19 pm HISTORY: ORDERING SYSTEM PROVIDED HISTORY: Chest pain rule out pneumonia, TECHNOLOGIST PROVIDED HISTORY: Illness/Other Reason for exam: Chest pain rule out pneumonia Cancer History: no Surgery, RadiationHistory: no heart/lung surg Encounter Type: Unknown Additional signs and symptoms: unknown ORDERING SYSTEM PROVIDED DIAGNOSIS CODES: COMPARISON: None FINDINGS: The heart size is normal. Right IJ central venous catheter is seen in place with distal tip projecting over the expected location of the distal superior vena cava. Infiltrate with airspace opacities are seen in the inferior right upper lobe. No dense focal consolidation, pneumothorax or pleural effusion is seen on this single view of the chest. No acute osseous abnormality is seen. IMPRESSION: Airspace opacity/infiltrate seen in the inferior right upper lobe. Workstation ID: [id number] Dictated by: JEFFRY CURRY on FriNov 17, 2024 11:03:28 PM EDT Transcribed by: JEFFRY CURRY on FriNov 17, 2024 11:03:28 PM EDT Finalized by: JEFFRY CURRY on FriNov 17, 2024 11:03:28 PM EDT Normal [facility] Comment on above: Order Comment: Injur y/Trauma or Illness?:Illness/Other How long have you had these symptoms (acute/chronic)?:Acute Reason for exam?:Central line placement History of cancer?:tongue cancer Surgeries, chemotherapy, or radiation?:yes Type of Exam?:Initial Additional signs and symptoms?:. XR CHEST PA/AP EXAMINATION: 1 VIEW XR CHEST PA/AP, 11/17/2024 COMPARISON: Chest, 09/14/2024 HISTORY: Dyspnea, fever FINDINGS: The lungs are clear with no acute cardiopulmonary disease. No pulmonary edema, pneumothorax or pleural effusion. The heart, mediastinal structures and visualized bony structures are unremarkable. IMPRESSION: 1. No acute abnormality. GJT/alt Workstation ID: [id number] Dictated by: HARMAN JIMENES on FriNov 17, 2024 7:14:43 PM EDT Transcribed by: ELICIA GONZALES on FriNov 17, 2024 7:27:50 PM EDT Finalized by: HARMAN JIMENES on FriNov 17, 2024 9:22:47 PM EDT Normal [facility] Comment on above: Order Comment: Injur y/Trauma or Illness?:Illness/OtherHow long have you had these symptoms (acute/chronic)?:AcuteReason for exam?:dyspnea, feverHistory of cancer?:tongue cancerSurgeries, chemotherapy, or radiation?:yesType of Exam?:InitialAdditional signs and symptoms?:. XR Chest PA and Abdomen APon 11-17-2024 Airspace opacity/infiltrate seen in the inferior right upper lobe. Workstation ID: [id number] [employer] EXAMINATION: XR CHEST PA/AP 12/02/2020 1:19 pm HISTORY: ORDERING SYSTEM PROVIDED HISTORY: Chest pain rule out pneumonia, TECHNOLOGIST PROVIDED HISTORY: Illness/Other Reason for exam: Chest pain rule out pneumonia Cancer History: no Surgery, RadiationHistory: no heart/lung surg Encounter Type: Unknown Additional signs and symptoms: unknown ORDERING SYSTEM PROVIDED DIAGNOSIS CODES: COMPARISON: None FINDINGS: The heart size is normal. Right IJ central venous catheter is seen in place with distal tip projecting over the expected location of the distal superior vena cava. Infiltrate with airspace opacities are seen in the inferior right upper lobe. No dense focal consolidation, pneumothorax or pleural effusion is seen on this single view of the chest. No acute osseous abnormality is seen. [employer] RIS Jeffry Curry MD - 11/17/2024 EXAMINATION: XR CHEST PA/AP 12/02/2020 1:19 pm HISTORY: ORDERING SYSTEM PROVIDED HISTORY: Chest pain rule out pneumonia, TECHNOLOGIST PROVIDED HISTORY: Illness/Other Reason for exam: Chest pain rule out pneumonia Cancer History: no Surgery, RadiationHistory: no heart/lung surg Encounter Type: Unknown Additional signs and symptoms: unknown ORDERING SYSTEM PROVIDED DIAGNOSIS CODES: COMPARISON: None FINDINGS: The heart size is normal. Right IJ central venous catheter is seen in place with distal tip projecting over the expected location of the distal superior vena cava. Infiltrate with airspace opacities are seen in the inferior right upper lobe. No dense focal consolidation, pneumothorax or pleural effusion is seen on this single view of the chest. No acute osseous abnormality is seen. IMPRESSION: Airspace opacity/infiltrate seen in the inferior right upper lobe. Workstation ID: [id number] [facility] Radiology Study observation (narrative) [facility] 1. No acute abnormality. GJT/alt Workstation ID: [id number] [employer] EXAMINATION: 1 VIEW XR CHEST PA/AP, 11/17/2024 COMPARISON: Chest, 09/14/2024 HISTORY: Dyspnea, fever FINDINGS: The lungs are clear with no acute cardiopulmonary disease. No pulmonary edema, pneumothorax or pleural effusion. The heart, mediastinal structures and visualized bony structures are unremarkable. GE RIS Harman Jimenes MD - 11/17/2024 EXAMINATION: 1 VIEW XR CHEST PA/AP, 11/17/2024 COMPARISON: Chest, 09/14/2024 HISTORY: Dyspnea, fever FINDINGS: The lungs are clear with no acute cardiopulmonary disease. No pulmonary edema, pneumothorax or pleural effusion. The heart, mediastinal structures and visualized bony structures are unremarkable. IMPRESSION: 1. No acute abnormality. GJT/alt Workstation ID: [id number] [facility] Radiology Study observation (narrative) [facility] XR Chest PA and Abdomen APOr dered By: Jeffry Curry on 11-17-2024 [facility] Work Phone: XR Chest PA and Abdomen APOr dered By: Harman Jimenes on 11-17-2024 [facility] Work Phone: CBC W Auto Differential pane l (Bld)on 11-08-2024 Basophils (Bld) [#/Vol] 0.03 10*3/uL Normal <0.11 [facility] Comment on above: Order Comment: Speci men Type: BLOOD SPECIMENOrdering Facility: [facility] Address: [address] [place] [address] Performed By: #### 5 7021-8 ####[facility] LABCLIA [id number] [place] [id number] [place] Basophils/100 WBC (Bld) 0.6 % Normal [facility] Comment on above: Order Comment: Speci men Type: BLOOD SPECIMENOrdering Facility: [facility] Address: [address] [place] [address] Performed By: #### 5 7021-8 ####[facility] LABCLIA [id number] [place] [id number] [place] Differential cell count method Nom (Bld) Auto Normal [facility] Comment on above: Order Comment: Speci men Type: BLOOD SPECIMENOrdering Facility: [facility] Address: [address] [place] [address] Performed By: #### 5 7021-8 ####[facility] LABIA [id number] [place] [id number] [place] Eosinophils (Bld) [#/Vol] 0.14 10*3/uL Normal <0.46 [facility] Comment on above: Order Comment: Speci men Type: BLOOD SPECIMENOrdering Facility: [facility] Address: [address] [place] [address] Performed By: #### 5 7021-8 ####[facility] LABIA [id number] [place] [id number] [place] Eosinophils/100 WBC (Bld) 2.7 % Normal [facility] Comment on above: Order Comment: Speci men Type: BLOOD SPECIMENOrdering Facility: [facility] Address: [address] [place] [address] Performed By: #### 5 7021-8 ####[facility] LABCLIA [id number] [place] [id number] [place] Erythrocyte distribution width (RBC) [Ratio] 12.7 % Normal 11.5-15.0 [facility] Comment on above: Order Comment: Speci men Type: BLOOD SPECIMENOrdering Facility: [facility] Address: [address] [place] [address] Performed By: #### 5 7021-8 ####[facility] LABIA [id number] [place] [id number] [place] Hematocrit (Bld) [Volume fraction] 42.8 % Normal 39.0-51.0 [facility] Comment on above: Order Comment: Speci men Type: BLOOD SPECIMENOrdering Facility: [facility] Address: [address] [place] [address] Performed By: #### 5 7021-8 ####[facility] LABIA [id number] [place] [id number] [place] Hemoglobin (Bld) [Mass/Vol] 14.1 g/dL Normal 13.0-17.0 [facility] Comment on above: Order Comment: Speci men Type: BLOOD SPECIMENOrdering Facility: [facility] Address: [address] [place] [address] Performed By: #### 5 7021-8 ####[facility] LABIA [id number] [place] [id number] [place] Immature granulocytes (Bld) [#/Vol] 10*3/uL Normal <0.10 [facility] Comment on above: Order Comment: Speci men Type: BLOOD SPECIMENOrdering Facility: [facility] Address: [address] [place] [address] Performed By: #### 5 7021-8 ####[facility] LABCLIA [id number] [place] [id number] [place] Immature granulocytes/100 WBC (Bld) 0.2 % Normal [facility] Comment on above: Order Comment: Speci men Type: BLOOD SPECIMENOrdering Facility: [facility] Address: [address] [place] [address] Performed By: #### 5 7021-8 ####[facility] LABIA [id number] [place] [place] Lymphocytes (Bld) [#/Vol] 0.76 10*3/uL Low 1.00-4.00 [facility] Comment on above: Order Comment: Speci men Type: BLOOD SPECIMENOrdering Facility: [facility] Address: [address] [place] [address] Performed By: #### 5 7021-8 ####[facility] [id number] [place] [phone] [place] Lymphocytes/100 WBC (Bld) 14.9 % Normal [facility] Comment on above: Order Comment: Speci men Type: BLOOD SPECIMENOrdering Facility: [facility] Address: [address] [place] [address] Performed By: #### 5 7021-8 ####[facility] [id number] [place] [id number] [place] MCH (RBC) [Entitic mass] 30.6 pg Normal 26.0-34.0 [facility] Comment on above: Order Comment: Speci men Type: BLOOD SPECIMENOrdering Facility: [facility] Address: [address] [place] [address] Performed By: #### 5 7021-8 ####[facility] [id number] [place] [id number] [place] MCHC (RBC) [Mass/Vol] 32.9 g/dL Normal 30.5-36.0 [facility] Comment on above: Order Comment: Speci men Type: BLOOD SPECIMENOrdering Facility: [facility] Address: [address] [place] [address] Performed By: #### 5 7021-8 ####[facility] [id number] [place] [phone] [place] MCV (RBC) [Entitic vol] 92.8 fL Normal 80.0-100.0 [facility] Comment on above: Order Comment: Speci men Type: BLOOD SPECIMENOrdering Facility: [facility] Address: [address] [place] [address] Performed By: #### 5 7021-8 ####[facility] LABIA [id number] [place] [address] [place] Monocytes (Bld) [#/Vol] 0.43 10*3/uL Normal <0.87 [facility] Comment on above: Order Comment: Speci men Type: BLOOD SPECIMENOrdering Facility: [facility] Address: [address] [place] [address] Performed By: #### 5 7021-8 ####[facility] LABIA [id number] [place] [id number] [place] Monocytes/100 WBC (Bld) 8.4 % Normal [facility] Comment on above: Order Comment: Speci men Type: BLOOD SPECIMENOrdering Facility: [facility] Address: [address] [place] [address] Performed By: #### 5 7021-8 ####[facility] LABIA [id number] [place] [id number] [place] Neutrophils (Bld) [#/Vol] 3.73 10*3/uL Normal 1.45-7.50 [facility] Comment on above: Order Comment: Speci men Type: BLOOD SPECIMENOrdering Facility: [facility] Address: [address] [place] [address] Performed By: #### 5 7021-8 ####[facility] LABIA [id number] [place] [phone] [place] Neutrophils/100 WBC (Bld) 73.2 % Normal [facility] Comment on above: Order Comment: Speci men Type: BLOOD SPECIMENOrdering Facility: [facility] Address: [address] [place] [address] Performed By: #### 5 7021-8 ####[facility] LABIA [id number] [place] [address] [place] Nucleated RBC (Bld) [#/Vol] 10*3/uL Normal <0.01 [facility] Comment on above: Order Comment: Speci men Type: BLOOD SPECIMENOrdering Facility: [facility] Address: [address] [place] [address] Performed By: #### 5 7021-8 ####[facility] [id number] [place] [address] [place] Nucleated RBC/100 WBC (Bld) [Ratio] 0.0 /100 WBC Normal [facility] Comment on above: Order Comment: Speci men Type: BLOOD SPECIMENOrdering Facility: [facility] Address: [address] [place] [address] Performed By: #### 5 7021-8 ####[facility] [id number] [place] [id number] [place] Platelet mean volume (Bld) [Entitic vol] 11.4 fL Normal 9.0-12.7 [facility] Comment on above: Order Comment: Speci men Type: BLOOD SPECIMENOrdering Facility: [facility] Address: [address] [place] [address] Performed By: #### 5 7021-8 ####[facility] [id number] [place] [phone] [place] Platelets (Bld) [#/Vol] 163 10*3/uL Normal 150-400 [facility] Comment on above: Order Comment: Speci men Type: BLOOD SPECIMENOrdering Facility: [facility] Address: [address] [place] [address] Performed By: #### 5 7021-8 ####[facility] [id number] [place] [address] [place] RBC (Bld) [#/Vol] 4.61 10*6/uL Normal 4.20-6.00 [facility] Comment on above: Order Comment: Speci men Type: BLOOD SPECIMENOrdering Facility: [facility] Address: [address] [place] [address] Performed By: #### 5 7021-8 ####[facility] LABCLIA [id number] [place] [address] [place] WBC (Bld) [#/Vol] 5.10 10*3/uL Normal 3.70-11.00 [facility] Comment on above: Order Comment: Speci men Type: BLOOD SPECIMENOrdering Facility: [facility] Address: [facility] [place] [address] Performed By: #### 5 7021-8 ####[facility] LABCLIA [id number] [place] [address] [facility] [place] CNOVSPon 11-08-2024 CNOVSP Visit (SP) Office ([place]) AMY SUN ([id number]) 1950 M Date Time Provider Department 11/08/24 11:40 AM SUSHMA BRANDON During your visit today, we recorded the following information about you: Temperature Pulse Respiration Blood pressure 98 degrees 59/minute 16/minute 105/66 Weight 84.9 kg Susmha Brandon 11/08/2024 11:51 AM Signed HISTORY OF PRESENT ILLNESS: Mr. 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 Patient that time was treated with chemoradiation therapy. He completed radiation therapy in February 2009. He was treated on the care Dr. Lennon. He was last seen by him on September 2017. CURRENT STATUS: Since his last visit, patient has been seen by Dr. Adler. Patient was found to have E. coli in the sputum. Patient was treated with Cipro. In addition patient has underwent percutaneous endoscopic gastrostomy tube placement by Dr. Jaimes on September 29, 2024. Patient otherwise reports doing well. He now returns ECOG PERFORMANCE STATUS: 0- Fully active, able to carry on all pre-disease performance w/o restriction. Social History Tobacco Use Smoking status: Former Current packs/day: 0.00 Average packs/day: 2.0 packs/day for 46.0 years (92.0 ttl pk-yrs) Types: Cigarettes Start date: 09/19/1962 Quit date: 09/19/2008 Years since quittin.1 Smokeless tobacco: Never Tobacco comments: Quit Vaping Use Vaping status: Never Used Substance Use Topics Alcohol use: No Drug use: No FAMILY HISTORY Problem Relation Age of Onset Cataract Mother other (Dementia) Mother Coronary Artery Disease Father Heart Father Cataract Father Glaucoma Father Detached Retina No Family History Macular Degen No Family History Blindness No Family History Amblyopia No Family History Strabismus No Family History PAST MEDICAL HISTORY Diagnosis Date Aspiration into respiratory tract Bronchiectasis (HCC) Dysphagia Emphysema lung (HCC) Epiretinal membrane (ERM) of left eye Erythrocytosis 09/15/2014 Hyperlipemia 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 HEAD (Incl. face): Normocephalic; Atraumatic. EYES: Pupils are reactive. No scleral icterus. HEENT: No oral exudates. NECK: No thyromegaly. No JVD. Evidence of neck surgery. HEMATOLOGY/LYMPHATIC: No petechiae or purpura. No tender or palpable lymph nodes in the cervical, supraclavicular, axillary or inguinal areas. RESPIRATORY: Lungs are clear to auscultation. CARDIOVASCULAR: Regular rate and rhythm. 2 + radial pulse. ABDOMEN: Non-tender, soft, positive bowel sounds. BACK/SPINE: No kyphosis or scoliosis. Non tender to palpation. MUSCULOSKELETAL: No tenderness or swelling, normal range of motion without obvious weakness. EXTREMITIES: No cyanosis, clubbing INTEGUMENTARY: No rashes or masses. NEURO: No sensory or motor deficits, normal cerebellar function, normal gait, cranial nerves intact. PSYCHIATRIC: Pleasant affect. No signs of agitation. LABS: Latest Reference Range AND Units 11/08/24 10:53 Sodium 136 - 144 mmol/L 145 (H) Potassium 3.7 - 5.1 mmol/L 4.8 Chloride 98 - 107 mmol/L 102 CO2 22 - 30 mmol/L 31 (H) BUN 9 - 24 mg/dL 32 (H) Creatinine 0.73 - 1.22 mg/dL 0.75 Glucose 74 - 99 mg/dL 118 (H) Protein, Total 6.3 - 8.0 g/dL 7.1 Calcium 8.5 - 10.2 mg/dL 10.2 Albumin 3.9 - 4.9 g/dL 4.3 Bilirubin, Total 0.2 - 1.3 mg/dL 0.4 Alkaline Phosphatase 38 - 113 U/L 109 ALT 10 - 54 U/L 16 AST 14 - 40 U/L 21 Anion Gap 8 - 15 mmol/L 12 eGFR >=60 mL/min/1.73m? 95 WBC 3.70 - 11.00 k/uL 5.10 RBC 4.20 - 6.00 m/uL 4.61 Hemoglobin 13.0 - 17.0 g/dL 14.1 Hematocrit 39.0 - 51.0 % 42.8 Platelet Count 150 - 400 k/uL 163 MCV 80.0 - 100.0 fL 92.8 MCH 26.0 - 34.0 pg 30.6 MCHC 30.5 - 36.0 g/dL 32.9 MPV 9.0 - 12.7 fL 11.4 RDW-CV 11.5 - 15.0 % 12.7 DTYPE Auto Neut% % 73.2 Abs Neut (ANC) 1.45 - 7.50 k/uL 3.73 Lymph% % 14.9 Abs Lymph 1.00 - 4.00 k/uL 0.76 (L) Gaston% % 8.4 Abs Gaston <0.87 k/uL 0.43 Eosin% % 2.7 Abs Eosin <0.46 k/uL 0.14 Baso% % 0.6 Abs Baso <0.11 k/uL 0.03 Immature Gran % % 0.2 IMMATURE GRANS (ABS) <0.10 k/uL <0.03 NRBC /100 WBC 0.0 Absolute nRBC <0.01 k/uL <0.01 (H): Data is abnormally high (L): Data is abnormally low RADIOLOGY: CT CHEST WITHOUT CONTRAST -Exam End: 07/04/24 11:09 AM FINDINGS: LUNGS: Mild emp (more content not included)... Normal [facility] Comprehensive metabolic 2000 panelon 11-08-2024 Albumin [Mass/Vol] 4.3 g/dL Normal 3.9-4.9 [facility] Comment on above: Order Comment: Speci men Type: BLOOD SPECIMENOrdering Facility: [facility] Address: [address] [place] [address] Performed By: #### 2 4323-8 ####[facility] LABIA [id number] [place] [id number] [place] ALP [Catalytic activity/Vol] 109 U/L Normal 38-113 [facility] Comment on above: Order Comment: Speci men Type: BLOOD SPECIMENOrdering Facility: [facility] Address: [address] [place] [address] Performed By: #### 2 4323-8 ####[facility] LABIA [id number] [place] [address] [place] ALT [Catalytic activity/Vol] 16 U/L Normal 10-54 [facility] Comment on above: Order Comment: Speci men Type: BLOOD SPECIMENOrdering Facility: [facility] Address: [address] [place] [address] Performed By: #### 2 4323-8 ####[facility] LABIA [id number] [place] [address] [place] Anion gap [Moles/Vol] 12 mmol/L Normal 8-15 [facility] Comment on above: Order Comment: Speci men Type: BLOOD SPECIMENOrdering Facility: [facility] Address: [address] [place] [address] Performed By: #### 2 4323-8 ####[facility] LABIA [id number] [place] [address] [place] AST [Catalytic activity/Vol] 21 U/L Normal 14-40 [facility] Comment on above: Order Comment: Speci men Type: BLOOD SPECIMENOrdering Facility: [facility] Address: [address] [place] [address] Performed By: #### 2 4323-8 ####[facility] LABCLIA [id number] [place] [address] [place] Bilirubin [Mass/Vol] 0.4 mg/dL Normal 0.2-1.3 [facility] Comment on above: Order Comment: Speci men Type: BLOOD SPECIMENOrdering Facility: [facility] Address: [address] [place] [address] Performed By: #### 2 4323-8 ####[facility] LABCLIA [id number] [place] [id number] [place] Calcium [Mass/Vol] 10.2 mg/dL Normal 8.5-10.2 [facility] Comment on above: Order Comment: Speci men Type: BLOOD SPECIMENOrdering Facility: [facility] Address: [address] [place] [address] Performed By: #### 2 4323-8 ####[facility] LABIA [id number] [place] [id number] [place] Chloride [Moles/Vol] 102 mmol/L Normal 98-107 [facility] Comment on above: Order Comment: Speci men Type: BLOOD SPECIMENOrdering Facility: [facility] Address: [address] [place] [address] Performed By: #### 2 4323-8 ####[facility] LABCLIA [id number] [place] [id number] [place] CO2 [Moles/Vol] 31 mmol/L High 22-30 [facility] Comment on above: Order Comment: Speci men Type: BLOOD SPECIMENOrdering Facility: [facility] Address: [address] [place] [address] Performed By: #### 2 4323-8 ####[facility] LABCLIA [id number] [place] [phone] [place] Creatinine [Mass/Vol] 0.75 mg/dL Normal 0.73-1.22 [facility] Comment on above: Order Comment: Debo wells Type: BLOOD SPECIMENOrdering Facility: [facility] Address: [address] [place] [address] Performed By: #### 2 4323-8 ####[facility] LABCLIA [id number] [place] [phone] [place] eGFRcr SerPlBld CKD-EPI 2020 95 mL/min/1.73m??? Normal >=60 [facility] Comment on above: Order Comment: Debo wells Type: BLOOD SPECIMENOrdering Facility: [facility] Address: [address] [place] [address] Result Comment: Marv mated Glomerular Filtration Rate (eGFR) is calculated using the 2020 CKD-EPI creatinine equation. This equation utilizes serum creatinine, sex, and age as parameters. The creatinine assay has traceable calibration to isotope dilution-mass spectrometry. Refer to KDIGO guidelines for clinical interpretation. In patients with unstable renal function, e.g. those with acute kidney injury, the eGFR may not accurately reflect actual GFR. Performed By: #### 2 4323-8 ####[facility] LABCLIA [id number] [place] [id number] [place] Glucose [Mass/Vol] 118 mg/dL High 74-99 [facility] Comment on above: Order Comment: Debo wells Type: BLOOD SPECIMENOrdering Facility: [facility] Address: [address] [place] [address] Result Comment: The [place] Diabetes [employer] (ADA) provides guidance for cutoff values for fasting glucose and random glucose. The ADA defines fasting as no caloric intake for at least 8 hours. Fasting plasma glucose results between 100 to 125 mg/dL indicate increased risk for diabetes (prediabetes). Fasting plasma glucose results greater than or equal to 126 mg/dL meet the criteria for diagnosis of diabetes. In the absence of unequivocal hyperglycemia, results should be confirmed by repeat testing. In a patient with classic symptoms of hyperglycemia or hyperglycemic crisis, random plasma glucose results greater than or equal to 200 mg/dL meet the criteria for diagnosis of diabetes. Reference: Standards of Medical Care in Diabetes 2016, [place] [employer]. Diabetes Care. 2016.39(Suppl 1). Performed By: #### 2 4323-8 ####[facility] LABCLIA [id number] [place] [address] [place] Potassium [Moles/Vol] 4.8 mmol/L Normal 3.7-5.1 [facility] Comment on above: Order Comment: Speci men Type: BLOOD SPECIMENOrdering Facility: [facility] Address: [address] [place], [place] [address] Performed By: #### 2 4323-8 ####[facility] [id number] [place] [id number] [place] Protein [Mass/Vol] 7.1 g/dL Normal 6.3-8.0 [facility] Comment on above: Order Comment: Speci men Type: BLOOD SPECIMENOrdering Facility: [facility] Address: [address] [place] [address] Performed By: #### 2 4323-8 ####[facility] [id number] [place] [id number] [place] Sodium [Moles/Vol] 145 mmol/L High 136-144 [facility] Comment on above: Order Comment: Speci men Type: BLOOD SPECIMENOrdering Facility: [facility] Address: [address] [place] [address] Performed By: #### 2 4323-8 ####[facility] LABCLIA [id number] [place] [address] [place] Urea nitrogen [Mass/Vol] 32 mg/dL High 9-24 [facility] Comment on above: Order Comment: Speci men Type: BLOOD SPECIMENOrdering Facility: [facility] Address: [address] [place] [address] Performed By: #### 2 4323-8 ####[facility] LABIA [id number] [place] [address] [facility] Ubaldo 10-13-[address] [facility] Telephone (PULMWS) AMY SUN ([id number]) 1950 M Date Time Provider Department 10/13/24 OMER ADLER During your visit today, we recorded the following information about you: Brandi Cisneros LPN 10/13/2024 10:03 AM Signed Patient called into office requesting information regarding anoro ellipta as insert stated this could effect prostate and he already has issues with prostate. Please advise. SIERRA Mohamud Kathleen, LPN 10/13/2024 3:32 PM Signed Spoke with patient. Discussed anticholingeric drug class red flags. He had previously tolerated Spiriva which has similar side effect profile. No current complaints. Lisa Torres LPN Allergies As of Date: 10/13/2024 Noted Allergy Reaction BUDESONIDE 07/23/2024 10 - Anaphylaxis Comments: Throat constriction REVEFENACIN 07/23/2024 10 - Anaphylaxis Comments: Throat reconstruction IPRATROPIUM-ALBUTEROL 07/23/2024 5 - Intolerance Comments: Right side of face gets numb Date Reviewed: 10/08/2024 Reviewed by: Naida Phillips MD - Fully Assessed Prescriptions as of 10/13/2024 - erythromycin (ROMYCIN) 5 mg/gram (0.5 %) ophthalmic ointment Use 1 application in both eyes two times a week. - ciprofloxacin HCl (CIPRO) 500 mg tablet Take 1 tablet by mouth two times a day for 10 days. - doxazosin (CARDURA) 4 mg tablet Take 4 mg by mouth daily at bedtime. - finasteride (PROSCAR) 5 mg tablet Take 5 mg by mouth once daily. - roflumilast (DALIRESP) 500 mcg tab 500 mcg once daily. - SUMAtriptan (IMITREX) 50 mg tablet Take 50 mg by mouth every 2 hours as needed. - tiotropium (SPIRIVA) 18 mcg inhalation capsule Inhale 18 mcg as instructed once daily. - aspirin, enteric coated (ASPIRIN, ENTERIC COATED) 81 mg EC tablet Take 81 mg by mouth once daily. - cyanocobalamin (VITAMIN B-12) 500 mcg tablet Take 500 mcg by mouth once daily. - fluticasone (FLONASE) 50 mcg/actuation nasal spray Use 2 sprays in each nostril once daily. - umeclidinium-vilantero l (ANORO ELLIPTA) 62.5-25 mcg/actuation inhaler Inhale 1 inhalation as instructed once daily. - apixaban (ELIQUIS) 5 mg tab(s) Take 5 mg by mouth two times a day. - famotidine (PEPCID) 20 mg tablet Take 20 mg by mouth. - nut tx, lact-reduced, iron (BOOST VHC) 0.09-2.25 gram-kcal/mL liqd 52 mL by FEEDING TUBE route continuous. Adminster with infinity feeding pump. Flush with an additional 33oz of water daily (divided). - iv contrast (will be provided with radiology test) CT Chest W -Inject, intravenously, once for 1 dose.No IV access, insert saline lock prior to the beginning of sedation, infusion, injection of imaging exam. Discontinue saline lock post exam. If Pt. has a central line or IVAD, may access for administration according to line specific nursing protocol. Once exam is complete flush line and de-access according to line specific nursing protocol in the CT contrast administration guidelines link. - iv contrast (will be provided with radiology test) CT ABD/PEL -Inject, intravenously, once for 1 dose.No IV access, insert saline lock prior to the beginning of sedation, infusion, injection of imaging exam. Discontinue saline lock post exam. If Pt. has a central line or IVAD, may access for administration according to line specific nursing protocol. Once exam is complete flush line and de-access according to line specific nursing protocol in the CT contrast administration guidelines link. - enteric contrast (will be provided with radiology test) For CT ABD/PEL W IVCON Routine order Administer, As Directed One Time Only, via Oral, Rectal, both Oral and Rectal, Enteric Tube, Stoma or Indwelling Catheter, Enteric Contrast as designated per enteric contrast guidelines - nutritional supplement-fiber (COMPLEAT 1.5) 0.07 gram-1.5 kcal/mL liqd 80ml/hr of Compleat 1.5 continuously for 24 hours. Use 1 carton of Benecalorie daily. Flush with 200ml water four times per day. - sertraline (ZOLOFT) 25 mg tablet Take 1 tablet by mouth once daily. 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] 03/14/2015 06/05/2016 Astigmatism of left eye [H52.202] 03/14/2015 Vitreous floaters of both eyes [H43.393] 03/14/2015 Essential hypertension [I10] 03/14/2015 Cataract, secondary obscuring vision [H26.499] 03/14/2015 04/06/2015 History of benign hyperplasia of prostate [Z87.*03/14/2015 Dry eye [H04.129] 03/14/2015 06/05/2016 Pseudophakia of right eye [Z96.1] 03/27/2015 04/06/2015 Pseudophakia of both eyes [Z96.1] 04/06/2015 Pseudophakia of left eye [Z96.1] 04/10/2015 06/05/2016 Dry eye syndrome [H04.129] 06/05/2016 Epiretinal membrane (ERM) of left eye [H35.372] 06/02/2017 M (more content not included)... Normal [facility] Ubaldo 10-08-2024 CNPN Telephone (PULMWS) AMY SUN ([id number]) 1950 M Date Time Provider Department 10/08/24 OMER ADLER PULMWS During your visit today, we recorded the following information about you: Omer Adler MD 10/08/2024 2:05 PM Signed Left voicemail message regarding results to date. Immune system okay. No alpha 1 antitrypsin deficiency. Sputum growing E. Coli. AFB preliminary negative. Sent in Cipro prescription. Allergies As of Date: 10/08/2024 Noted Allergy Reaction BUDESONIDE 07/23/2024 10 - Anaphylaxis Comments: Throat constriction REVEFENACIN 07/23/2024 10 - Anaphylaxis Comments: Throat reconstruction IPRATROPIUM-ALBUTEROL 07/23/2024 5 - Intolerance Comments: Right side of face gets numb Date Reviewed: 10/08/2024 Reviewed by: Naida Phillips MD - Fully Assessed Order(s):ciprofloxacin HCl (CIPRO) 500 mg tabletTake 1 tablet by mouth two times a day for 10 days.Disp: 20 tabletRfl: 0 Prescriptions as of 10/08/2024 - erythromycin (ROMYCIN) 5 mg/gram (0.5 %) ophthalmic ointment Use 1 application in both eyes two times a week. - ciprofloxacin HCl (CIPRO) 500 mg tablet Take 1 tablet by mouth two times a day for 10 days. - doxazosin (CARDURA) 4 mg tablet Take 4 mg by mouth daily at bedtime. - finasteride (PROSCAR) 5 mg tablet Take 5 mg by mouth once daily. - roflumilast (DALIRESP) 500 mcg tab 500 mcg once daily. - SUMAtriptan (IMITREX) 50 mg tablet Take 50 mg by mouth every 2 hours as needed. - tiotropium (SPIRIVA) 18 mcg inhalation capsule Inhale 18 mcg as instructed once daily. - aspirin, enteric coated (ASPIRIN, ENTERIC COATED) 81 mg EC tablet Take 81 mg by mouth once daily. - cyanocobalamin (VITAMIN B-12) 500 mcg tablet Take 500 mcg by mouth once daily. - fluticasone (FLONASE) 50 mcg/actuation nasal spray Use 2 sprays in each nostril once daily. - umeclidinium-vilantero l (ANORO ELLIPTA) 62.5-25 mcg/actuation inhaler Inhale 1 inhalation as instructed once daily. - apixaban (ELIQUIS) 5 mg tab(s) Take 5 mg by mouth two times a day. - famotidine (PEPCID) 20 mg tablet Take 20 mg by mouth. - nut tx, lact-reduced, iron (BOOST VHC) 0.09-2.25 gram-kcal/mL liqd 52 mL by FEEDING TUBE route continuous. Adminster with infinity feeding pump. Flush with an additional 33oz of water daily (divided). - iv contrast (will be provided with radiology test) CT Chest W -Inject, intravenously, once for 1 dose.No IV access, insert saline lock prior to the beginning of sedation, infusion, injection of imaging exam. Discontinue saline lock post exam. If Pt. has a central line or IVAD, may access for administration according to line specific nursing protocol. Once exam is complete flush line and de-access according to line specific nursing protocol in the CT contrast administration guidelines link. - iv contrast (will be provided with radiology test) CT ABD/PEL -Inject, intravenously, once for 1 dose.No IV access, insert saline lock prior to the beginning of sedation, infusion, injection of imaging exam. Discontinue saline lock post exam. If Pt. has a central line or IVAD, may access for administration according to line specific nursing protocol. Once exam is complete flush line and de-access according to line specific nursing protocol in the CT contrast administration guidelines link. - enteric contrast (will be provided with radiology test) For CT ABD/PEL W IVCON Routine order Administer, As Directed One Time Only, via Oral, Rectal, both Oral and Rectal, Enteric Tube, Stoma or Indwelling Catheter, Enteric Contrast as designated per enteric contrast guidelines - nutritional supplement-fiber (COMPLEAT 1.5) 0.07 gram-1.5 kcal/mL liqd 80ml/hr of Compleat 1.5 continuously for 24 hours. Use 1 carton of Benecalorie daily. Flush with 200ml water four times per day. - sertraline (ZOLOFT) 25 mg tablet Take 1 tablet by mouth once daily. 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] 03/14/2015 06/05/2016 Astigmatism of left eye [H52.202] 03/14/2015 Vitreous floaters of both eyes [H43.393] 03/14/2015 Essential hypertension [I10] 03/14/2015 Cataract, secondary obscuring vision [H26.499] 03/14/2015 04/06/2015 History of benign hyperplasia of prostate [Z87.*03/14/2015 Dry eye [H04.129] 03/14/2015 06/05/2016 Pseudophakia of right eye [Z96.1] 03/27/2015 04/06/2015 Pseudophakia of both eyes [Z96.1] 04/06/2015 Pseudophakia of left eye [Z96.1] 04/10/2015 06/05/2016 Dry eye syndrome [H04.129] 06/05/2016 Epiretinal membrane (ERM) of left eye [H35.372] 06/02/2017 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 Normal [facility] A1AT SerPl-mCncon 10-04-2024 Alpha 1 antitrypsin [Mass/Vol] 204 mg/dL High 90-200 [facility] Comment on above: Order Comment: Speci men Type: BLOOD SPECIMENOrdering Facility: [facility] Address: [address] [place] [address] Performed By: #### 1 825-9 ####[facility] LABCLIA [id number] [place] [address] [place] ALPHA 1 ANTITRYP PHEN/GENOTY PEon 10-04-2024 HA1IN Normal [facility] Comment on above: Order Comment: Speci men Type: BLOOD SPECIMENOrdering Facility: [facility] Address: [address] [place] [address] Result Comment: Alph a 1 Antitrypsin Phenotype and Genotype Laboratory Accession Number: [id number] Result: No Variant Detected in SERPINA1 (PI*MM) Interpretation: DNA testing indicates that this patient does not have the S, Z, F, or I alleles of SERPINA1, the alpha-1 antitrypsin gene. Guidance: Genetic consultation and counseling of at risk family members regarding this laboratory testing may be considered as clinically appropriate. Patients with no variants of SERPINA1 typically have serum alpha-1 antitrypsin levels between 102-254 mg/dL. If this patient has a serum alpha-1 antitrypsin level that is not consistent with this genotype and alpha-1 antitrypsin deficiency caused by a rare variant is clinically suspected, consider performing SERPINA1 gene sequencing. Methodology: Isolated genomic DNA from the patient's blood specimen is evaluated for four variants in the alpha-1 antitrypsin gene SERPINA1 (RefSeq [id number]; GRCh38/hg38) by multiplex polymerase chain reaction (PCR) followed by melting curve analysis. These included the two most common pathogenic variants: S (c.863A>T, p.Hts222Ejf, g.92200668), Z (c.1096G>A, p.Iij919Lpt, g.92353361), and the rarer variants: F (c.739C>T, p.Vxn456Jbt, g.83464428), I (c.187C>T, p.Jpp17Gby, g.55199811). Limitations: This Laboratory Developed Test (LDT) is designed to detect the S, Z, F and I alleles. The S and Z alleles comprise 95% of non-wild type genotypes. Uncommon variants or Single Nucleotide Polymorphisms may affect binding of LightMix or LightSNiP probes and may result in a false negative, false positive, or indeterminate result. Absence of the S, Z, F, and I alleles is interpreted as PI*MM genotype. However, there are over 100 known rare variants of SERPINA1 that are not detected by this LDT. Therefore, correlation of the genotype with the patient's serum alpha-1 antitrypsin level and clinical manifestations is strongly recommended. Frequency of S, Z, F and I Alleles in the general population: S: Heterozygous 2%; Homozygous 0.04% Z: Heterozygous 1%; Homozygous 0.01% F: Heterozygous 0.3%; Homozygous 0.001% I: Heterozygous 0.1%; Homozygous unknown Allele frequency information was gathered from the [employer] ([employer]) and includes data from , , , and populations (supporting data in references). Disclaimer: This test was developed and its performance characteristics determined by [facility]'s Pathology and Laboratory Medicine Department. It has not been cleared or approved by the FDA. [facility]'s Pathology and Laboratory Medicine Department is regulated under CLIA as certified to perform high-complexity testing. This test is used for clinical purposes. It should not be regarded as investigational or for research. Test performed at [facility], [address], [place] [address]. CLIA Number: [id number] References: 1) Caron ALEXANDRA, Desirae G, Amrik ML, Adeel M, oJseph CE, K, Keyla JEWELL, Charlene SL, Elma VARELA, Jeff NUNEZ, Urszula C, Dakota J. The Diagnosis and Management of Alpha-1 Antritrypsin Deficiency in the Adult. Chronic Obstr Pulm Dis. 2016 Jul 23;3:668-682. 2) Florentin JA, Lisa ON, Alysha ER, Dora DG. a1-Antitrypsin phenotypes and associated serum protein concentrations in a large clinical population. Chest.2013 May;143(4):1000-8. 3) Mack A, Tao NA, Jose Francisco CR, Patricia FJ, Tong SJ, Dennise AF. Molecular characterisation of three uyzdn-9-rbvunzjzakk deficiency variants: proteinase inhibitor (Pi) nullcardiff (Rng664----Gbi); PiMmalton (Zpw00----yrqezxlv) and PiI (Gpg11----Zxy). Hum Tiki. 1989 Jan;84(1):55-8. 4) Adam EK and Caron ALEXANDRA. Clinical practice. Alpha1-antitrypsin deficiency. N Engl J Med. 2009 Aug 11;360(90)9063-38. 5) Jaki NJ, Ian F, Isra ALEXANDRA. The significance of the F variant of sdqhk-0-xuyhjajuykd and unique case report of a PiFF homozygote. [facility] Pulm Med. 2014 Sep 23;14:132. 6) Jeff NUNEZ, Callie OROZCO, and Rosa Maria Arrington Alpha-1 Antitrypsin Deficiency. 2005Dec 13 [Updated 2017 March 07]. In: Katey RA, Crow MP, Brodie TO, et al., editors. Elyse [Internet]. [place]): [facility]; 0136-6649. Available from: http://www.ncbi.nlm.nih.gov/books/WXD1446/ Interpretation performed by Rebeca Mancilla, PhD, FACMG Performed By: #### A 1ATPG ####[facility] LIMSCLIA [id number] [place] [address] [place] Bacteria Spec Resp Culton Bacteria identified Respiratory culture Nom (Unsp spec) ORGANISM ID: 1 Few Escherichia coli Insignificant colony count. No further workup. ORGANISM ID: 2 Many normal respiratory jillian GRAM STAIN: Moderate Mixed oral jillian Rare Polymorphonuclear leukocytes Abnormal [facility] Comment on above: Performed By: #### 3 2355-0, 67576-6 ####[facility] LABCLIA [id number] [place] [address] [place] CBC W Auto Differential pane l (Bld)on 10-04-2024 Basophils (Bld) [#/Vol] 0.03 10*3/uL Normal <0.11 [facility] Comment on above: Order Comment: Speci men Type: BLOOD SPECIMENOrdering Facility: [facility] Address: [address] [place] [address] Performed By: #### 5 7021-8 ####[facility] LABCLIA [id number] [facility] [place] [id number] [place] Basophils/100 WBC (Bld) 0.5 % Normal [facility] Comment on above: Order Comment: Speci men Type: BLOOD SPECIMENOrdering Facility: [facility] Address: [address] [place] [address] Performed By: #### 5 7021-8 ####[facility] LABCLIA [id number] [place] [id number] [place] Differential cell count method Nom (Bld) Auto Normal [facility] Comment on above: Order Comment: Speci men Type: BLOOD SPECIMENOrdering Facility: [facility] Address: [address] [place] [address] Performed By: #### 5 7021-8 ####[facility] LABIA [id number] [place] [id number] [place] Eosinophils (Bld) [#/Vol] 0.11 10*3/uL Normal <0.46 [facility] Comment on above: Order Comment: Speci men Type: BLOOD SPECIMENOrdering Facility: [facility] Address: [address] [place] [address] Performed By: #### 5 7021-8 ####[facility] LABIA [id number] [place] [id number] [place] Eosinophils/100 WBC (Bld) 1.9 % Normal [facility] Comment on above: Order Comment: Speci men Type: BLOOD SPECIMENOrdering Facility: [facility] Address: [address] [place] [address] Performed By: #### 5 7021-8 ####[facility] LABIA [id number] [place] [id number] [place] Erythrocyte distribution width (RBC) [Ratio] 13.1 % Normal 11.5-15.0 [facility] Comment on above: Order Comment: Speci men Type: BLOOD SPECIMENOrdering Facility: [facility] Address: [address] [place] [address] Performed By: #### 5 7021-8 ####[facility] LABCLIA [id number] [place] [id number] [place] Hematocrit (Bld) [Volume fraction] 40.9 % Normal 39.0-51.0 [facility] Comment on above: Order Comment: Speci men Type: BLOOD SPECIMENOrdering Facility: [facility] Address: [address] [place] [address] Performed By: #### 5 7021-8 ####[facility] LABCLIA [id number] [place] [address] [place] Hemoglobin (Bld) [Mass/Vol] 13.6 g/dL Normal 13.0-17.0 [facility] Comment on above: Order Comment: Speci men Type: BLOOD SPECIMENOrdering Facility: [facility] Address: [address] [place] [address] Performed By: #### 5 7021-8 ####[facility] LABIA [id number] [place] [id number] [place] Immature granulocytes (Bld) [#/Vol] 10*3/uL Normal <0.10 [facility] Comment on above: Order Comment: Speci men Type: BLOOD SPECIMENOrdering Facility: [facility] Address: [address] [place] [address] Performed By: #### 5 7021-8 ####[facility] [id number] [place] [id number] [place] Immature granulocytes/100 WBC (Bld) 0.2 % Normal [facility] Comment on above: Order Comment: Speci men Type: BLOOD SPECIMENOrdering Facility: [facility] Address: [address] [place] [address] Performed By: #### 5 7021-8 ####[facility] [id number] [place] [id number] [place] Lymphocytes (Bld) [#/Vol] 0.50 10*3/uL Low 1.00-4.00 [facility] Comment on above: Order Comment: Speci men Type: BLOOD SPECIMENOrdering Facility: [facility] Address: [address] [place] [address] Performed By: #### 5 7021-8 ####[facility] LABIA [id number] [place] [id number] [place] Lymphocytes/100 WBC (Bld) 8.6 % Normal [facility] Comment on above: Order Comment: Speci men Type: BLOOD SPECIMENOrdering Facility: [facility] Address: [address] [place] [address] Performed By: #### 5 7021-8 ####[facility] [id number] [place] [id number] [place] [facility] MCH (RBC) [Entitic mass] 31.3 pg Normal 26.0-34.0 [facility] Comment on above: Order Comment: Speci men Type: BLOOD SPECIMENOrdering Facility: [facility] Address: [address] [place] [address] Performed By: #### 5 7021-8 ####[facility] [id number] [place] [id number] [place] [facility] MCHC (RBC) [Mass/Vol] 33.3 g/dL Normal 30.5-36.0 [facility] Comment on above: Order Comment: Speci men Type: BLOOD SPECIMENOrdering Facility: [facility] Address: [address] [place] [address] Performed By: #### 5 7021-8 ####[facility] [id number] [place] [id number] [place] [facility] MCV (RBC) [Entitic vol] 94.0 fL Normal 80.0-100.0 [facility] Comment on above: Order Comment: Speci men Type: BLOOD SPECIMENOrdering Facility: [facility] Address: [address] [place] [address] Performed By: #### 5 7021-8 ####[facility] [id number] [place] [id number] [place] Monocytes (Bld) [#/Vol] 0.42 10*3/uL Normal <0.87 [facility] Comment on above: Order Comment: Speci men Type: BLOOD SPECIMENOrdering Facility: [facility] Address: [address] [place] [address] Performed By: #### 5 7021-8 ####[facility] [id number] [place] [id number] [place] Monocytes/100 WBC (Bld) 7.2 % Normal [facility] Comment on above: Order Comment: Speci men Type: BLOOD SPECIMENOrdering Facility: [facility] Address: [address] [place] [address] Performed By: #### 5 7021-8 ####[facility] LABCLIA [id number] [place] [address] [place] Neutrophils (Bld) [#/Vol] 4.73 10*3/uL Normal 1.45-7.50 [facility] Comment on above: Order Comment: Speci men Type: BLOOD SPECIMENOrdering Facility: [facility] Address: [address] [place] [address] Performed By: #### 5 7021-8 ####[facility] LABCLIA [id number] [place] [id number] [place] Neutrophils/100 WBC (Bld) 81.6 % Normal [facility] Comment on above: Order Comment: Speci men Type: BLOOD SPECIMENOrdering Facility: [facility] Address: [address] [place] [address] Performed By: #### 5 7021-8 ####[facility] LABCLIA [id number] [place] [id number] [place] Nucleated RBC (Bld) [#/Vol] 10*3/uL Normal <0.01 [facility] Comment on above: Order Comment: Speci men Type: BLOOD SPECIMENOrdering Facility: [facility] Address: [address] [place] [address] Performed By: #### 5 7021-8 ####[facility] LABCLIA [id number] [place] [id number] [place] Nucleated RBC/100 WBC (Bld) [Ratio] 0.0 /100 WBC Normal [facility] Comment on above: Order Comment: Speci men Type: BLOOD SPECIMENOrdering Facility: [facility] Address: [address] [place] [address] Performed By: #### 5 7021-8 ####[facility] LABIA [id number] [place] [address] [place] Platelet mean volume (Bld) [Entitic vol] 11.0 fL Normal 9.0-12.7 [facility] Comment on above: Order Comment: Speci men Type: BLOOD SPECIMENOrdering Facility: [facility] Address: [address] [place] [address] Performed By: #### 5 7021-8 ####[facility] [id number] [place] [id number] [place] Platelets (Bld) [#/Vol] 181 10*3/uL Normal 150-400 [facility] Comment on above: Order Comment: Speci men Type: BLOOD SPECIMENOrdering Facility: [facility] Address: [address] [place] [address] Performed By: #### 5 7021-8 ####[facility] [id number] [place] [id number] [place] RBC (Bld) [#/Vol] 4.35 10*6/uL Normal 4.20-6.00 [facility] Comment on above: Order Comment: Speci men Type: BLOOD SPECIMENOrdering Facility: [facility] Address: [address] [place] [address] Performed By: #### 5 7021-8 ####[facility] [id number] [place] [id number] [place] WBC (Bld) [#/Vol] 5.80 10*3/uL Normal 3.70-11.00 [facility] Comment on above: Order Comment: Speci men Type: BLOOD SPECIMENOrdering Facility: [facility] Address: [address] [place] [address] Performed By: #### 5 7021-8 ####[facility] LABIA [id number] [place] [address] [place] Comprehensive metabolic 2000 panelon 10-04-2024 Albumin [Mass/Vol] 4.3 g/dL Normal 3.9-4.9 [facility] Comment on above: Order Comment: Speci men Type: BLOOD SPECIMENOrdering Facility: [facility] Address: [address] [place] [address] Performed By: #### 2 4323-8 ####[facility] LABCLIA [id number] [place] [address] [place] ALP [Catalytic activity/Vol] 100 U/L Normal 38-113 [facility] Comment on above: Order Comment: Speci men Type: BLOOD SPECIMENOrdering Facility: [facility] Address: [address] [place] [address] Performed By: #### 2 4323-8 ####[facility] LABCLIA [id number] [place] [address] [place] ALT [Catalytic activity/Vol] 12 U/L Normal 10-54 [facility] Comment on above: Order Comment: Speci men Type: BLOOD SPECIMENOrdering Facility: [facility] Address: [address] [place] [address] Performed By: #### 2 4323-8 ####[facility] LABCLIA [id number] [place] [id number] [place] Anion gap [Moles/Vol] 10 mmol/L Normal 8-15 [facility] Comment on above: Order Comment: Speci men Type: BLOOD SPECIMENOrdering Facility: [facility] Address: [address] [place] [address] Performed By: #### 2 4323-8 ####[facility] LABCLIA [id number] [place] [address] [place] AST [Catalytic activity/Vol] 18 U/L Normal 14-40 [facility] Comment on above: Order Comment: Speci men Type: BLOOD SPECIMENOrdering Facility: [facility] Address: [address] [place] [address] Performed By: #### 2 4323-8 ####[facility] LABCLIA [id number] [place] [phone] [place] Bilirubin [Mass/Vol] 0.5 mg/dL Normal 0.2-1.3 [facility] Comment on above: Order Comment: Speci men Type: BLOOD SPECIMENOrdering Facility: [facility] Address: [address] [place] [address] Performed By: #### 2 4323-8 ####[facility] LABCLIA [id number] [place] [phone] [place] Calcium [Mass/Vol] 9.9 mg/dL Normal 8.5-10.2 [facility] Comment on above: Order Comment: Speci men Type: BLOOD SPECIMENOrdering Facility: [facility] Address: [address] [place] [address] Performed By: #### 2 4323-8 ####[facility] [id number] [place] [id number] [place] Chloride [Moles/Vol] 100 mmol/L Normal 98-107 [facility] Comment on above: Order Comment: Speci men Type: BLOOD SPECIMENOrdering Facility: [facility] Address: [address] [place] [address] Performed By: #### 2 4323-8 ####[facility] LABIA [id number] [place] [phone] [place] CO2 [Moles/Vol] 31 mmol/L High 22-30 [facility] Comment on above: Order Comment: Speci men Type: BLOOD SPECIMENOrdering Facility: [facility] Address: [address] [place] [address] Performed By: #### 2 4323-8 ####[facility] LABIA [id number] [place] [phone] [place] Creatinine [Mass/Vol] 0.75 mg/dL Normal 0.73-1.22 [facility] Comment on above: Order Comment: Speci men Type: BLOOD SPECIMENOrdering Facility: [facility] Address: [address] [place] [address] Performed By: #### 2 4323-8 ####[facility]IA [id number] [place] [phone] [place] eGFRcr SerPlBld CKD-EPI 2020 95 mL/min/1.73m??? Normal >=60 [facility] Comment on above: Order Comment: Debo wells Type: BLOOD SPECIMENOrdering Facility: [facility] Address: [address] [place] [address] Result Comment: Marv mated Glomerular Filtration Rate (eGFR) is calculated using the 2020 CKD-EPI creatinine equation. This equation utilizes serum creatinine, sex, and age as parameters. The creatinine assay has traceable calibration to isotope dilution-mass spectrometry. Refer to KDIGO guidelines for clinical interpretation. In patients with unstable renal function, e.g. those with acute kidney injury, the eGFR may not accurately reflect actual GFR. Performed By: #### 2 4323-8 ####[facility] [id number] [place] [phone] [place] Glucose [Mass/Vol] 112 mg/dL High 74-99 [facility] Comment on above: Order Comment: Debo wells Type: BLOOD SPECIMENOrdering Facility: [facility] Address: [address] [place] [address] Result Comment: The [place] Diabetes Association (ADA) provides guidance for cutoff values for fasting glucose and random glucose. The ADA defines fasting as no caloric intake for at least 8 hours. Fasting plasma glucose results between 100 to 125 mg/dL indicate increased risk for diabetes (prediabetes). Fasting plasma glucose results greater than or equal to 126 mg/dL meet the criteria for diagnosis of diabetes. In the absence of unequivocal hyperglycemia, results should be confirmed by repeat testing. In a patient with classic symptoms of hyperglycemia or hyperglycemic crisis, random plasma glucose results greater than or equal to 200 mg/dL meet the criteria for diagnosis of diabetes. Reference: Standards of Medical Care in Diabetes 2016, [place] [employer]. Diabetes Care. 2016.39(Suppl 1). Performed By: #### 2 4323-8 ####[facility] [id number] [place] [phone] [place] Potassium [Moles/Vol] 4.3 mmol/L Normal 3.7-5.1 [facility] Comment on above: Order Comment: Speci men Type: BLOOD SPECIMENOrdering Facility: [facility] Address: [address] [place] [address] Performed By: #### 2 4323-8 ####[facility]IA [id number] [place] [phone] [place] Protein [Mass/Vol] 7.3 g/dL Normal 6.3-8.0 [facility] Comment on above: Order Comment: Speci men Type: BLOOD SPECIMENOrdering Facility: [facility] Address: [address] [place] [address] Performed By: #### 2 4323-8 ####[facility] [id number] [place] [phone] [place] Sodium [Moles/Vol] 141 mmol/L Normal 136-144 [facility] Comment on above: Order Comment: Speci men Type: BLOOD SPECIMENOrdering Facility: [facility] Address: [address] [place] [address] Performed By: #### 2 4323-8 ####[facility]IA [id number] [place] [id number] [place] Urea nitrogen [Mass/Vol] 26 mg/dL High 9-24 [facility] Comment on above: Order Comment: Speci men Type: BLOOD SPECIMENOrdering Facility: [facility] Address: [address] [place] [address] Performed By: #### 2 4323-8 ####[facility] [id number] [place] [id number] [place] IgA SerPl-mCncon 10-04-2024 IgA [Mass/Vol] 211 mg/dL Normal 70-400 [facility] Comment on above: Order Comment: Speci men Type: BLOOD SPECIMENOrdering Facility: [facility] Address: [address] [place] [address] Performed By: #### 2 458-8, 2472-9, 2465-3 ####[facility] LABCLIA [id number] [place] [address] [place] IgE SerPl-aCncon 10-04-2024 IgE Qn 63.8 kU/l Normal <114.0 [facility] Comment on above: Order Comment: Speci men Type: BLOOD SPECIMENOrdering Facility: [facility] Address: [address] [place] [address] Performed By: #### 1 9113-0 ####[facility] LABIA [id number] [place] [address] [place] IgG SerPl-mCncon 10-04-2024 IgG [Mass/Vol] 1059 mg/dL Normal 700-1600 [facility] Comment on above: Order Comment: Speci men Type: BLOOD SPECIMENOrdering Facility: [facility] Address: [address] [place] [address] Performed By: #### 2 458-8, 2472-9, 246-3 ####[facility] LABIA [id number] [place] [address] [place] IgM SerPl-mCncon 10-04-2024 IgM [Mass/Vol] 148 mg/dL Normal 40-230 [facility] Comment on above: Order Comment: Speci men Type: BLOOD SPECIMENOrdering Facility: [facility] Address: [address] [place] [address] Performed By: #### 2 458-8, 2472-9, 2465-3 ####[facility] LABIA [id number] [place] [address] [place] Microorganism Spec Culton Microorganism identified Cx Nom (Unsp spec) CULTURE, AFB: No Acid Fast Bacilli isolated after 42 days AFB STAIN: No acid fast bacilli seen by fluorochrome stain Normal [facility] Comment on above: Performed By: #### 3 2355-0, 95122-2 ####[facility] LORI [id number] [place]KEYJackie [address] [place] Ubaldo 09-22-2024 CNPN Telephone (PULMWS) AMY SUN ([id number]) 1950 M Date Time Provider Department 09/22/24 OMER ADLERVICKIE During your visit today, we recorded the following information about you: Sirisha Lainez LPN 09/22/2024 4:12 PM Signed Christa called. Verified name and date of of patient. Christa called to let Dr. Adler know that patient did not receive the pickle device and would like it sent to [facility] in [place]. SIERRA Jeffers Kathleen, LPN 09/23/2024 8:25 AM Signed Faxed Lisa Torres LPN Allergies As of Date: 09/22/2024 Noted Allergy Reaction BUDESONIDE 07/23/2024 10 - Anaphylaxis Comments: Throat constriction REVEFENACIN 07/23/2024 10 - Anaphylaxis Comments: Throat reconstruction IPRATROPIUM-ALBUTEROL 07/23/2024 5 - Intolerance Comments: Right side of face gets numb Date Reviewed: 09/16/2024 Reviewed by: Omer Adler MD - Fully Assessed Reason for Visit: Orders [681] Primary Visit Diagnosis:Bronchiectas is without complication (HCC) [J47.9] Order(s):FLUTTER VALVE [[id number]] Order #: [id number] Prescriptions as of 09/23/2024 - doxazosin (CARDURA) 4 mg tablet Take 4 mg by mouth daily at bedtime. - finasteride (PROSCAR) 5 mg tablet Take 5 mg by mouth once daily. - roflumilast (DALIRESP) 500 mcg tab 500 mcg once daily. - SUMAtriptan (IMITREX) 50 mg tablet Take 50 mg by mouth every 2 hours as needed. - tiotropium (SPIRIVA) 18 mcg inhalation capsule Inhale 18 mcg as instructed once daily. - aspirin, enteric coated (ASPIRIN, ENTERIC COATED) 81 mg EC tablet Take 81 mg by mouth once daily. - cyanocobalamin (VITAMIN B-12) 500 mcg tablet Take 500 mcg by mouth once daily. - fluticasone (FLONASE) 50 mcg/actuation nasal spray Use 2 sprays in each nostril once daily. - umeclidinium-vilantero l (ANORO ELLIPTA) 62.5-25 mcg/actuation inhaler Inhale 1 inhalation as instructed once daily. - apixaban (ELIQUIS) 5 mg tab(s) Take 5 mg by mouth two times a day. - famotidine (PEPCID) 20 mg tablet Take 20 mg by mouth. - nut tx, lact-reduced, iron (BOOST VHC) 0.09-2.25 gram-kcal/mL liqd 52 mL by FEEDING TUBE route continuous. [place]minster with infinity feeding pump. Flush with an additional 33oz of water daily (divided). - iv contrast (will be provided with radiology test) CT Chest W -Inject, intravenously, once for 1 dose.No IV access, insert saline lock prior to the beginning of sedation, infusion, injection of imaging exam. Discontinue saline lock post exam. If Pt. has a central line or IVAD, may access for administration according to line specific nursing protocol. Once exam is complete flush line and de-access according to line specific nursing protocol in the CT contrast administration guidelines link. - iv contrast (will be provided with radiology test) CT ABD/PEL -Inject, intravenously, once for 1 dose.No IV access, insert saline lock prior to the beginning of sedation, infusion, injection of imaging exam. Discontinue saline lock post exam. If Pt. has a central line or IVAD, may access for administration according to line specific nursing protocol. Once exam is complete flush line and de-access according to line specific nursing protocol in the CT contrast administration guidelines link. - enteric contrast (will be provided with radiology test) For CT ABD/PEL W IVCON Routine order Administer, As Directed One Time Only, via Oral, Rectal, both Oral and Rectal, Enteric Tube, Stoma or Indwelling Catheter, Enteric Contrast as designated per enteric contrast guidelines - nutritional supplement-fiber (COMPLEAT 1.5) 0.07 gram-1.5 kcal/mL liqd 80ml/hr of Compleat 1.5 continuously for 24 hours. Use 1 carton of Benecalorie daily. Flush with 200ml water four times per day. - sertraline (ZOLOFT) 25 mg tablet Take 1 tablet by mouth once daily. 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] 03/14/2015 06/05/2016 Astigmatism of left eye [H52.202] 03/14/2015 Vitreous floaters of both eyes [H43.393] 03/14/2015 Essential hypertension [I10] 03/14/2015 Cataract, secondary obscuring vision [H26.499] 03/14/2015 04/06/2015 History of benign hyperplasia of prostate [Z87.*03/14/2015 Dry eye [H04.129] 03/14/2015 06/05/2016 Pseudophakia of right eye [Z96.1] 03/27/2015 04/06/2015 Pseudophakia of both eyes [Z96.1] 04/06/2015 Pseudophakia of left eye [Z96.1] 04/10/2015 06/05/2016 Dry eye syndrome [H04.129] 06/05/2016 Epiretinal membrane (ERM) of left eye [H35.372] 06/02/2017 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 Normal [facility] CNOVon 09-16-2024 CNOV Office Visit (PULMWS ) AMY SUN ([id number]) 1950 M Date Time Provider Department 09/16/24 12:45 PM OMER ADLER PULMWS During your visit today, we recorded the following information about you: Pulse Blood pressure Weight 57/minute 136/84 83.9 kg Omer Adler MD 09/16/2024 5:00 PM Signed . Respiratory [place] Note Patient name: Amy Sun PCP: Gunjan Godoy MD Referring Physician: Sushma Brandon MD Recording using ambient [employer] software for draft documentation of the visit was discussed with the patient/authorized technical services representative; all questions welcomed and answered. Patient/authorized technical services representative agreed to proceed Consultation requested by Dr. Brandon for an opinion regarding lung nodules. My final recommendations will be communicated back to the requesting physician by way of shared Medical record or letter to requesting physician via US mail. CC: lung nodules HPI: Amy Sun 74 year old male former 90+ pack year smoker, quitting in 2008 with PMH significant for head and neck cancer 2008 (base of tongue) s/p chemoradiation, erthrocytosis, HLD, emphysema, bronchiectasis, dysphagia s/p PEG tube, chronic hypoxemic respiratory failure, aspiration . Recent history notable for hospital admission in June with bilateral PNA. Chest CT pertinent for multiple irregular patchy opacities in LLL and GGO in RLL. Follows with pulmonary at [facility] but requested change in pulmonary providers. From a respiratory Bill reports significant daily mucus production, described as brown in color and sometimes difficult to expectorate. He denies hemoptysis, chest pain, or pressure. No wheezing. No night sweats or current fevers. Has a history of recurrent aspiration. Kishor has a PEG tube and is unable to eat or drink orally, though he occasionally attempts to consume popsicles without success. He has moderate COPD for which he uses Spiriva. Unable to use any form of nebulized medication due facial numbness and near-syncope and he had throal swelling from Pulmicort. He was on Advair but discontinued due to episodes of oral thrush. DME: [facility] [place] DATA: PFT 08/2023: Impression: - 08/22/2023 PFT: - Spirometry - MODERATELY SEVERE OBSTRUCTION, FEV1/FVC 58%, FEV1 2.03L 58% predicted, FVC 3.53L 74% predicted; w/ SMALL AIRWAY flow limitation. - Significant response to bronchodilator: LARGE response during this testing, as may be seen w/ Asthma, RAD (FEV1 increased 15%). - Lung Volume - HYPERINFLATION, INCREASED TLC 12.03L 167% predicted, RV 8.78L 314% predicted - w/ SEVERE AIR TRAPPING. - Diffusing Capacity: MILDLY REDUCED DLCO 66% predicted, DL/VA 107% (which normalizes when adjusted for lung volume, suggesting probably extraparenchymal cause; e.g., body habitus; may also have emphysema). - Flow Volume Loops - Obstructive pattern; No overt upper airway obstruction pattern. Imaging / Diagnostic Studies: DATE OF EXAM: Aug 16 2024 1:30PM [facility] 0541 - CT CHEST WO IVCON / RESULT: EXAMINATION: CHEST CT WITHOUT CONTRAST CLINICAL HISTORY: Multiple lung nodules on CT Aspiration into lower respiratory tract, subsequent encounter Aspiration, clearing of pneumonia vs mets Comparison: 01/22/2024 and 07/18/2023 RESULT: Lines, tubes, and devices: None. Lung parenchyma and airways: Trachea and central airways are patent. Bronchiectasis within the right middle lobe, lingula, and lower lobes right greater than left. Diffuse bronchial wall thickening with scattered mucoid impaction spelled both lungs. Waxing and waning multifocal centrilobular tree-in-bud nodular opacities throughout both lungs increased in the right upper lobe and lateral left lower lobe. Previously identified more focal solid nodular opacities in the lower lobes have resolved. More focal dependent atelectasis in the right lower lobe. Pleural space: No pleural effusion or pneumothorax. Lower neck, lymph nodes, and mediastinum: No axillary, supraclavicular, mediastinal or hilar lymphadenopathy by CT size criteria. Heart, pericardium, and thoracic vessels: The heart is normal in size. No pericardial effusion. The thoracic aorta and main pulmonary artery are normal in caliber. Atherosclerotic calcification of the thoracic aorta. Bones/Soft Tissues: No aggressive osseous lesions. Upper abdomen: Gastrostomy tube in place. 1 cm hemorrhagic/proteinace ous left renal cyst. Client Engagement Specialist (topogram) images: Unremarkable. IMPRESSION: Waxing and waning opacities suggestive of a chronic infectious/inflammator y process though continued follow-up is recommended. No definite metastatic disease in the chest. Irregular nodules significant bronchiectasis mainly of lower lobes and tree-in-bud opacities mainly in the right lung. PAST MEDICAL HISTORY Diagnosis Date Aspiration into respirato (more content not included)... Normal [facility] METABOLIC PANE L W/ANION GAPon 09-15-2024 Albumin [Mass/Vol] 4.3 g/dL Normal 3.6-5.1 [facility] Comment on above: Order Comment: FASTI NG:NO FASTING: NO Performed By: #### 9 2665 #### [facility] [address], [address] [place] [address] Ethnic Studies Professor: Vikas Grant MD ALP [Catalytic activity/Vol] 79 U/L Normal 35-144 [facility] Comment on above: Order Comment: FASTI NG:NO FASTING: NO Performed By: #### 9 2665 #### [facility] [address], [address] [place] [address] Ethnic Studies Professor: Vikas Grant MD ALT [Catalytic activity/Vol] 14 U/L Normal 9-46 [facility] Comment on above: Order Comment: FASTI NG:NO FASTING: NO Performed By: #### 9 2665 #### [facility] [place] [address] Ethnic Studies Professor: Vikas Grant MD AST [Catalytic activity/Vol] 20 U/L Normal 10-35 [facility] Comment on above: Order Comment: FASTI NG:NO FASTING: NO Performed By: #### 9 2661 #### [facility] [place] [address] Ethnic Studies Professor: Vikas Grant MD Bilirubin [Mass/Vol] 0.6 mg/dL Normal 0.2-1.2 [facility] Comment on above: Order Comment: FASTI NG:NO FASTING: NO Performed By: #### 9 2664 #### [facility] [place] [address] Ethnic Studies Professor: Vikas Grant MD Calcium [Mass/Vol] 9.4 mg/dL Normal 8.6-10.3 [facility] Comment on above: Order Comment: FASTI NG:NO FASTING: NO Performed By: #### 9 2665 #### [facility] [place] [address] Ethnic Studies Professor: Vikas Grant MD Chloride [Moles/Vol] 99 mmol/L Normal 98-110 [facility] Comment on above: Order Comment: FASTI NG:NO FASTING: NO Performed By: #### 9 2665 #### [facility] [place] [address] Ethnic Studies Professor: Vikas Grant MD CO2 [Moles/Vol] 32 mmol/L Normal 20-32 [facility] Comment on above: Order Comment: FASTI NG:NO FASTING: NO Performed By: #### 9 2665 #### [facility] [place] [address] Ethnic Studies Professor: Vikas Grant MD Creatinine [Mass/Vol] 0.67 mg/dL Low 0.70-1.28 [facility] Comment on above: Order Comment: FASTI NG:NO FASTING: NO Performed By: #### 9 2665 #### [facility] [place] [address] Ethnic Studies Professor: Vikas Grant MD ELECTROLYTE BALANCE 12 mmol/L (calc) Normal 7-17 [facility] Comment on above: Order Comment: FASTI NG:NO FASTING: NO Performed By: #### 9 2665 #### [facility] [place] [address] Ethnic Studies Professor: Vikas Grant MD GFR/1.73 sq M.predicted among non-blacks MDRD (S/P/Bld) [Vol rate/Area] 98 mL/min/{1.73_m2} Normal > OR = 60 [facility] Comment on above: Order Comment: FASTI NG:NO FASTING: NO Performed By: #### 9 2665 #### [facility] [address], [address] [place] [address] Ethnic Studies Professor: Vikas Grant MD Glucose [Mass/Vol] 103 mg/dL Normal 65-139 [facility] Comment on above: Order Comment: FASTI NG:NO FASTING: NO Result Comment: Non-fasting reference interval For someone without known diabetes, a glucose value between 100 and 125 mg/dL is consistent with prediabetes and should be confirmed with a follow-up test. Performed By: #### 9 2665 #### [facility] [place] [address] Ethnic Studies Professor: Vikas Grant MD Potassium [Moles/Vol] 3.9 mmol/L Normal 3.5-5.3 [facility] Comment on above: Order Comment: FASTI NG:NO FASTING: NO Performed By: #### 9 2665 #### [facility] [address], [address] [place] [address] Ethnic Studies Professor: Vikas Grant MD Protein [Mass/Vol] 7.2 g/dL Normal 6.1-8.1 [facility] Comment on above: Order Comment: FASTI NG:NO FASTING: NO Performed By: #### 9 2665 #### [facility] [place] [address] Ethnic Studies Professor: Vikas Grant MD Sodium [Moles/Vol] 143 mmol/L Normal 135-146 [facility] Comment on above: Order Comment: FASTI NG:NO FASTING: NO Performed By: #### 9 2665 #### [facility] [place] [address] Ethnic Studies Professor: Vikas Grant MD Urea nitrogen [Mass/Vol] 26 mg/dL High 7-25 [facility] Comment on above: Order Comment: FASTI NG:NO FASTING: NO Performed By: #### 9 2665 #### [facility] [address], [address] [place] [address] Ethnic Studies Professor: Vikas Grant MD Comprehensive metabolic 2000 panelon 09-15-2024 Albumin [Mass/Vol] 4.3 g/dL 3.6 - 5.1 g/dL [facility] ALP [Catalytic activity/Vol] 79 U/L 35 - 144 U/L [facility] ALT [Catalytic activity/Vol] 14 U/L 9 - 46 U/L [facility] Anion gap [Moles/Vol] 12 mmol/L [facility] AST [Catalytic activity/Vol] 20 U/L 10 - 35 U/L [facility] Bilirubin [Mass/Vol] 0.6 mg/dL 0.2 - 1 .2 mg/dL [facility] Calcium [Mass/Vol] 9.4 mg/dL 8.6 - 10. 3 mg/dL [facility] Chloride [Moles/Vol] 99 mmol/L 98 - 11 0 mmol/L [facility] CO2 [Moles/Vol] 32 mmol/L 20 - 32 mmol/L [facility] Creatinine [Mass/Vol] 0.67 mg/dL Low 0.70 - 1.28 mg/dL [facility] GFR/1.73 sq M.predicted among non-blacks MDRD (S/P/Bld) [Vol rate/Area] 98 mL/min/{1.73_m2} > OR = 60 mL/min/1.73m2 [facility] Glucose [Mass/Vol] 103 mg/dL 65 - 139 mg/dL [facility] Comment on above: Non-fasting reference interval For someone without known diabetes, a glucose value between 100 and 125 mg/dL is consistent with prediabetes and should be confirmed with a follow-up test. Interpretation and review of laboratory results Abnormal [facility] Potassium [Moles/Vol] 3.9 mmol/L 3.5 - 5.3 mmol/L [facility] Protein [Mass/Vol] 7.2 g/dL 6.1 - 8.1 g/dL [facility] Sodium [Moles/Vol] 143 mmol/L 135 - 146 mmol/L [facility] Urea nitrogen [Mass/Vol] 26 mg/dL High 7 - 25 mg/dL [facility] FASTING:NO FASTING: NO Talking Data [facility] [place] XR CHEST AP/PA AND LATon XR CHEST AP/PA AND LAT EXAMINATION: XR CHEST AP/PA AND LAT 09/14/2024 1:50 pm HISTORY: ORDERING SYSTEM PROVIDED HISTORY: Respiratory crackles of both lungs, TECHNOLOGIST PROVIDED HISTORY: Illness/Other Reason for exam: pt denies any chest pain sob or cough evaluate lung status Cancer History: tongue cancer Surgery, RadiationHistory: yes Encounter Type: Initial Additional signs and symptoms: na ORDERING SYSTEM PROVIDED DIAGNOSIS CODES: R09.89 Respiratory crackles of both lungs COMPARISON: Two-view chest from 07/14/2024. FINDINGS: Trachea, mediastinum and heart size are unremarkable. No infiltrate or nodule or effusion or pneumothorax is noted. Diaphragm and bony elements are intact. IMPRESSION: Nonacute two-view chest. Workstation ID: [id number] Dictated by: TASHA ODELL on FriSep 14, 2024 11:59:58 PM EDT Transcribed by: TASHA ODELL on FriSep 14, 2024 11:59:58 PM EDT Finalized by: TASHA ODELL on FriSep 14, 2024 11:59:58 PM EDT [facility] Comment on above: Order Comment: Injur y/Trauma or Illness?:Illness/Other How long have you had these symptoms (acute/chronic)?:Acute Reason for exam?:pt denies any chest pain sob or cough evaluate lung status History of cancer?:tongue cancer Surgeries, chemotherapy, or radiation?:yes Type of Exam?:Initial Additional signs and symptoms?:na XR Chest PA and Lateral and AP lateral-decubituson 09-14-2024 Nonacute two-view chest. Workstation ID: [id number] [employer] EXAMINATION: XR CHEST AP/PA AND LAT 09/14/2024 1:50 pm HISTORY: ORDERING SYSTEM PROVIDED HISTORY: Respiratory crackles of both lungs, TECHNOLOGIST PROVIDED HISTORY: Illness/Other Reason for exam: pt denies any chest pain sob or cough evaluate lung status Cancer History: tongue cancer Surgery, RadiationHistory: yes Encounter Type: Initial Additional signs and symptoms: na ORDERING SYSTEM PROVIDED DIAGNOSIS CODES: R09.89 Respiratory crackles of both lungs COMPARISON: Two-view chest from 07/14/2024. FINDINGS: Trachea, mediastinum and heart size are unremarkable. No infiltrate or nodule or effusion or pneumothorax is noted. Diaphragm and bony elements are intact. GE RIS Tasha Odell, - 09/15/2024 EXAMINATION: XR CHEST AP/PA AND LAT 09/14/2024 1:50 pm HISTORY: ORDERING SYSTEM PROVIDED HISTORY: Respiratory crackles of both lungs, TECHNOLOGIST PROVIDED HISTORY: Illness/Other Reason for exam: pt denies any chest pain sob or cough evaluate lung status Cancer History: tongue cancer Surgery, RadiationHistory: yes Encounter Type: Initial Additional signs and symptoms: na ORDERING SYSTEM PROVIDED DIAGNOSIS CODES: R09.89 Respiratory crackles of both lungs COMPARISON: Two-view chest from 07/14/2024. FINDINGS: Trachea, mediastinum and heart size are unremarkable. No infiltrate or nodule or effusion or pneumothorax is noted. Diaphragm and bony elements are intact. IMPRESSION: Nonacute two-view chest. Workstation ID: [id number] [facility] Radiology Study observation (narrative) [facility] XR Chest PA and Lateral and AP lateral-decubitusOrdered By: Tasha Odell on 09-14-2024 [facility] Work Phone: CBC W Auto Differential pane l (Bld)on 09-06-2024 Basophils (Bld) [#/Vol] 0.04 10*3/uL Normal <0.11 [facility] Comment on above: Order Comment: Speci men Type: BLOOD SPECIMENOrdering Facility: [facility] Address: [address] [place] [address] Performed By: #### 5 7021-8 ####[facility] LABCLIA [id number] [place] [address] [place] Basophils/100 WBC (Bld) 0.6 % Normal [facility] Comment on above: Order Comment: Speci priscilla Type: BLOOD SPECIMENOrdering Facility: [facility] Address: [address] [place] [address] Performed By: #### 5 7021-8 ####[facility] LABCLIA [id number] [place] [id number] [place] Differential cell count method Nom (Bld) Auto Normal [facility] Comment on above: Order Comment: Soumyai priscilla Type: BLOOD SPECIMENOrdering Facility: [facility] Address: [address] [place] [address] Performed By: #### 5 7021-8 ####[facility] LABCLIA [id number] [place] [id number] [place] Eosinophils (Bld) [#/Vol] 0.13 10*3/uL Normal <0.46 [facility] Comment on above: Order Comment: Speci men Type: BLOOD SPECIMENOrdering Facility: [facility] Address: [address] [place] [address] Performed By: #### 5 7021-8 ####[facility] LABIA [id number] [place] [id number] [place] Eosinophils/100 WBC (Bld) 2.0 % Normal [facility] Comment on above: Order Comment: Speci men Type: BLOOD SPECIMENOrdering Facility: [facility] Address: [address] [place] [address] Performed By: #### 5 7021-8 ####[facility] [id number] [place] [id number] [place] Erythrocyte distribution width (RBC) [Ratio] 14.1 % Normal 11.5-15.0 [facility] Comment on above: Order Comment: Speci men Type: BLOOD SPECIMENOrdering Facility: [facility] Address: [address] [place] [address] Performed By: #### 5 7021-8 ####[facility] [id number] [place] [id number] [place] Hematocrit (Bld) [Volume fraction] 39.1 % Normal 39.0-51.0 [facility] Comment on above: Order Comment: Speci men Type: BLOOD SPECIMENOrdering Facility: [facility] Address: [address] [place] [address] Performed By: #### 5 7021-8 ####[facility] [id number] [place] [id number] [place] Hemoglobin (Bld) [Mass/Vol] 13.1 g/dL Normal 13.0-17.0 [facility] Comment on above: Order Comment: Speci men Type: BLOOD SPECIMENOrdering Facility: [facility] Address: [address] [place] [address] Performed By: #### 5 7021-8 ####[facility] LABIA [id number] [place] [phone] [place] [facility] Immature granulocytes (Bld) [#/Vol] 0.03 10*3/uL Normal <0.10 [facility] Comment on above: Order Comment: Speci men Type: BLOOD SPECIMENOrdering Facility: [facility] Address: [address] [place] [address] Performed By: #### 5 7021-8 ####[facility] [id number] [place] [phone] [facility] Immature granulocytes/100 WBC (Bld) 0.5 % Normal [facility] Comment on above: Order Comment: Speci men Type: BLOOD SPECIMENOrdering Facility: [facility] Address: [address] [place] [address] Performed By: #### 5 7021-8 ####[facility] LABIA [id number] [place] [phone] [place] Lymphocytes (Bld) [#/Vol] 0.50 10*3/uL Low 1.00-4.00 [facility] Comment on above: Order Comment: Speci men Type: BLOOD SPECIMENOrdering Facility: [facility] Address: [address] [place] [address] Performed By: #### 5 7021-8 ####[facility] LABIA [id number] [place] [phone] [place] [facility] Lymphocytes/100 WBC (Bld) 7.6 % Normal [facility] Comment on above: Order Comment: Speci men Type: BLOOD SPECIMENOrdering Facility: [facility] Address: [address] [place] [address] Performed By: #### 5 7021-8 ####[facility] [id number] [place] [phone] [place] MCH (RBC) [Entitic mass] 31.4 pg Normal 26.0-34.0 [facility] Comment on above: Order Comment: Speci men Type: BLOOD SPECIMENOrdering Facility: [facility] Address: [address] [place] [address] Performed By: #### 5 7021-8 ####[facility] [id number] [place] [phone] [place] MCHC (RBC) [Mass/Vol] 33.5 g/dL Normal 30.5-36.0 [facility] Comment on above: Order Comment: Speci men Type: BLOOD SPECIMENOrdering Facility: [facility] Address: [address] [place] [address] Performed By: #### 5 7021-8 ####[facility] [id number] [place] [phone] [place] MCV (RBC) [Entitic vol] 93.8 fL Normal 80.0-100.0 [facility] Comment on above: Order Comment: Speci men Type: BLOOD SPECIMENOrdering Facility: [facility] Address: [address] [place] [address] Performed By: #### 5 7021-8 ####[facility] [id number] [place] [id number] [place] Monocytes (Bld) [#/Vol] 0.44 10*3/uL Normal <0.87 [facility] Comment on above: Order Comment: Speci men Type: BLOOD SPECIMENOrdering Facility: [facility] Address: [address] [place] [address] Performed By: #### 5 7021-8 ####[facility] [id number] [place] [phone] [place] Monocytes/100 WBC (Bld) 6.7 % Normal [facility] Comment on above: Order Comment: Speci men Type: BLOOD SPECIMENOrdering Facility: [facility] Address: [address] [place] [address] Performed By: #### 5 7021-8 ####[facility] LABCLIA [id number] [place] [address] [place] Neutrophils (Bld) [#/Vol] 5.43 10*3/uL Normal 1.45-7.50 [facility] Comment on above: Order Comment: Speci men Type: BLOOD SPECIMENOrdering Facility: [facility] Address: [address] [place] [address] Performed By: #### 5 7021-8 ####[facility] LABIA [id number] [place] [id number] [place] Neutrophils/100 WBC (Bld) 82.6 % Normal [facility] Comment on above: Order Comment: Speci men Type: BLOOD SPECIMENOrdering Facility: [facility] Address: [address] [place] [address] Performed By: #### 5 7021-8 ####[facility] LABIA [id number] [place] [phone] [place] Nucleated RBC (Bld) [#/Vol] 10*3/uL Normal <0.01 [facility] Comment on above: Order Comment: Speci men Type: BLOOD SPECIMENOrdering Facility: [facility] Address: [address] [place] [address] Performed By: #### 5 7021-8 ####[facility] [id number] [place] [phone] [place] Nucleated RBC/100 WBC (Bld) [Ratio] 0.0 /100 WBC Normal [facility] Comment on above: Order Comment: Speci men Type: BLOOD SPECIMENOrdering Facility: [facility] Address: [address] [place] [address] Performed By: #### 5 7021-8 ####[facility] LABIA [id number] [place] [phone] [place] Platelet mean volume (Bld) [Entitic vol] 10.6 fL Normal 9.0-12.7 [facility] Comment on above: Order Comment: Speci men Type: BLOOD SPECIMENOrdering Facility: [facility] Address: [address] [place] [address] Performed By: #### 5 7021-8 ####[facility] LABIA [id number] [place] [address] [place] Platelets (Bld) [#/Vol] 182 10*3/uL Normal 150-400 [facility] Comment on above: Order Comment: Speci men Type: BLOOD SPECIMENOrdering Facility: [facility] Address: [address] [place] [address] Performed By: #### 5 7021-8 ####[facility] [id number] [place] [phone] [place] RBC (Bld) [#/Vol] 4.17 10*6/uL Low 4.20-6.00 [facility] Comment on above: Order Comment: Speci men Type: BLOOD SPECIMENOrdering Facility: [facility] Address: [address] [place] [address] Performed By: #### 5 7021-8 ####[facility] [id number] [place] [phone] [place] WBC (Bld) [#/Vol] 6.57 10*3/uL Normal 3.70-11.00 [facility] Comment on above: Order Comment: Speci men Type: BLOOD SPECIMENOrdering Facility: [facility] Address: [address] [place] [address] Performed By: #### 5 7021-8 ####[facility] LABIA [id number] [place] [address] [facility] Comprehensive metabolic 2000 panelon 09-06-2024 Albumin [Mass/Vol] 4.1 g/dL Normal 3.9-4.9 [facility] Comment on above: Order Comment: Speci men Type: BLOOD SPECIMENOrdering Facility: [facility] Address: [address] [place] [address] Performed By: #### 2 4323-8 ####[facility] LABCLIA [id number] [place] [address] [place] ALP [Catalytic activity/Vol] 103 U/L Normal 38-113 [facility] Comment on above: Order Comment: Speci men Type: BLOOD SPECIMENOrdering Facility: [facility] Address: [address] [place] [address] Performed By: #### 2 4323-8 ####[facility] LABCLIA [id number] [place] [address] [place] ALT [Catalytic activity/Vol] 13 U/L Normal 10-54 [facility] Comment on above: Order Comment: Speci men Type: BLOOD SPECIMENOrdering Facility: [facility] Address: [address] [place] [address] Performed By: #### 2 4323-8 ####[facility] LABIA [id number] [place] [phone] [place] Anion gap [Moles/Vol] 10 mmol/L Normal 8-15 [facility] Comment on above: Order Comment: Speci men Type: BLOOD SPECIMENOrdering Facility: [facility] Address: [address] [place] [address] Performed By: #### 2 4323-8 ####[facility] LABCLIA [id number] [place] [address] [place] AST [Catalytic activity/Vol] 16 U/L Normal 14-40 [facility] Comment on above: Order Comment: Speci men Type: BLOOD SPECIMENOrdering Facility: [facility] Address: [address] [place] [address] Performed By: #### 2 4323-8 ####[facility] LABIA [id number] [place] [address] [place] Bilirubin [Mass/Vol] 0.4 mg/dL Normal 0.2-1.3 [facility] Comment on above: Order Comment: Speci men Type: BLOOD SPECIMENOrdering Facility: [facility] Address: [address] [place] [address] Performed By: #### 2 4323-8 ####[facility] LABIA [id number] [place] [phone] [place] Calcium [Mass/Vol] 9.9 mg/dL Normal 8.5-10.2 [facility] Comment on above: Order Comment: Speci men Type: BLOOD SPECIMENOrdering Facility: [facility] Address: [address] [place] [address] Performed By: #### 2 4323-8 ####[facility] LABIA [id number] [place] [phone] [place] Chloride [Moles/Vol] 98 mmol/L Normal 98-107 [facility] Comment on above: Order Comment: Speci men Type: BLOOD SPECIMENOrdering Facility: [facility] Address: [address] [place] [address] Performed By: #### 2 4323-8 ####[facility] LABIA [id number] [place] [phone] [place] CO2 [Moles/Vol] 30 mmol/L Normal 22-30 [facility] Comment on above: Order Comment: Speci men Type: BLOOD SPECIMENOrdering Facility: [facility] Address: [address] [place] [address] Performed By: #### 2 4323-8 ####[facility] LABIA [id number] [place] [phone] [place] Creatinine [Mass/Vol] 0.71 mg/dL Low 0.73-1.22 [facility] Comment on above: Order Comment: Speci men Type: BLOOD SPECIMENOrdering Facility: [facility] Address: [address] [place] [address] Performed By: #### 2 4323-8 ####[facility] LABIA [id number] [place] [id number] [place] eGFRcr SerPlBld CKD-EPI 2021 96 mL/min/1.73m??? Normal >=60 [facility] Comment on above: Order Comment: Debo wells Type: BLOOD SPECIMENOrdering Facility: [facility] Address: [address] [place] [address] Result Comment: Marv mated Glomerular Filtration Rate (eGFR) is calculated using the 2020 CKD-EPI creatinine equation. This equation utilizes serum creatinine, sex, and age as parameters. The creatinine assay has traceable calibration to isotope dilution-mass spectrometry. Refer to KDIGO guidelines for clinical interpretation. In patients with unstable renal function, e.g. those with acute kidney injury, the eGFR may not accurately reflect actual GFR. Performed By: #### 2 4323-8 ####[facility] LABCLIA [id number] [place] [address] [place] Glucose [Mass/Vol] 108 mg/dL High 74-99 [facility] Comment on above: Order Comment: Debo wells Type: BLOOD SPECIMENOrdering Facility: [facility] Address: [address] [place] [address] Result Comment: The [place] [employer] (ADA) provides guidance for cutoff values for fasting glucose and random glucose. The ADA defines fasting as no caloric intake for at least 8 hours. Fasting plasma glucose results between 100 to 125 mg/dL indicate increased risk for diabetes (prediabetes). Fasting plasma glucose results greater than or equal to 126 mg/dL meet the criteria for diagnosis of diabetes. In the absence of unequivocal hyperglycemia, results should be confirmed by repeat testing. In a patient with classic symptoms of hyperglycemia or hyperglycemic crisis, random plasma glucose results greater than or equal to 200 mg/dL meet the criteria for diagnosis of diabetes. Reference: Standards of Medical Care in Diabetes 2016, [place] [employer]. Diabetes Care. 2016.39(Suppl 1). Performed By: #### 2 4323-8 ####[facility] LABCLIA [id number] [place] [address] [place] Potassium [Moles/Vol] 4.8 mmol/L Normal 3.7-5.1 [facility] Comment on above: Order Comment: Debo wells Type: BLOOD SPECIMENOrdering Facility: [facility] Address: [address] [place] [address] Performed By: #### 2 4323-8 ####[facility] LABIA [id number] [place] [address] [place] Protein [Mass/Vol] 7.3 g/dL Normal 6.3-8.0 [facility] Comment on above: Order Comment: Speci men Type: BLOOD SPECIMENOrdering Facility: [facility] Address: [address] [place] [address] Performed By: #### 2 4323-8 ####[facility] LABIA [id number] [place] [address] [place] Sodium [Moles/Vol] 138 mmol/L Normal 136-144 [facility] Comment on above: Order Comment: Speci men Type: BLOOD SPECIMENOrdering Facility: [facility] Address: [address] [place] [address] Performed By: #### 2 4323-8 ####[facility] LABIA [id number] [place] [address] [place] Urea nitrogen [Mass/Vol] 29 mg/dL High 9-24 [facility] Comment on above: Order Comment: Speci men Type: BLOOD SPECIMENOrdering Facility: [facility] Address: [address] [place] [address] Performed By: #### 2 4323-8 ####[facility] [id number] [place] [address] [place] CHEST WO IVCONon 08-17-[address] CHEST WO IVCON * * *Final Report* * * DATE OF EXAM: Aug 16 2024 1:30PM OCC 0541 - CT CHEST WO IVCON / PROCEDURE REASON: multiple diagnoses * * * * Physician Interpretation * * * * RESULT: EXAMINATION: CHEST CT WITHOUT CONTRAST CLINICAL HISTORY: Multiple lung nodules on CT Aspiration into lower respiratory tract, subsequent encounter Aspiration, clearing of pneumonia vs mets Technique: Spiral CT acquisition of the chest from the thoracic inlet to the upper abdomen without contrast. MQ: CTCWOR_4 CT Dose-Length Product: 261 mGy*cm CT Dose Reduction Employed: Automated exposure control(AEC) and iterative recon Comparison: 01/22/2024 and 07/18/2023 RESULT: Lines, tubes, and devices: None. Lung parenchyma and airways: Trachea and central airways are patent. Bronchiectasis within the right middle lobe, lingula, and lower lobes right greater than left. Diffuse bronchial wall thickening with scattered mucoid impaction spelled both lungs. Waxing and waning multifocal centrilobular tree-in-bud nodular opacities throughout both lungs increased in the right upper lobe and lateral left lower lobe. Previously identified more focal solid nodular opacities in the lower lobes have resolved. More focal dependent atelectasis in the right lower lobe. Pleural space: No pleural effusion or pneumothorax. Lower neck, lymph nodes, and mediastinum: No axillary, supraclavicular, mediastinal or hilar lymphadenopathy by CT size criteria. Heart, pericardium, and thoracic vessels: The heart is normal in size. No pericardial effusion. The thoracic aorta and main pulmonary artery are normal in caliber. Atherosclerotic calcification of the thoracic aorta. Bones/Soft Tissues: No aggressive osseous lesions. Upper abdomen: Gastrostomy tube in place. 1 cm hemorrhagic/proteinace ous left renal cyst. Client Engagement Specialist (topogram) images: Unremarkable. IMPRESSION: Waxing and waning opacities suggestive of a chronic infectious/inflammator y process though continued follow-up is recommended. No definite metastatic disease in the chest. Transcribe Date/Time: Aug 17 2024 10:06A Dictated by: CRISTINA DAUGHERTY MD This examination was interpreted and the report reviewed and electronically signed by: CRISTINA DAUGHERTY MD on Aug 17 2024 10:24AM EST Thank you for allowing us to participate in the care of your patient. [id number] Normal [facility] CNOVSPon 08-09-2024 CNOVSP Visit (SP) Office ([facility]) AMY SUN ([id number]) 1950 Date Time Provider Department 08/09/24 11:20 AM SUSHMA BRANDON During your visit today, we recorded the following information about you: Temperature Pulse Respiration Blood pressure 97.7 degrees 69/minute 16/minute 98/62 Weight 82.1 kg Sushma Brandon 08/09/2024 12:06 PM Signed HISTORY OF PRESENT ILLNESS: Mr. 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 Patient that time was treated with chemoradiation therapy. He completed radiation therapy in February 2009. He was treated on the care Dr. Lennon. He was last seen by him on September 2017. CURRENT STATUS: Since his last visit, he was admitted in 06/2024 for bilateral pneumonia and he was readmitted in 07/2024 for elevated troponin. He was admitted in 07/30/2024 and he had fever and cough. He was found to be hypotensive and with an elevated troponin. He was admitted and d/c home. He was told to restrict his fluids. He was was found to have a high sodium. His fluids were liberalized. He now returns ECOG PERFORMANCE STATUS: 0- Fully active, able to carry on all pre-disease performance w/o restriction. Social History Tobacco Use Smoking status: Former Current packs/day: 0.00 Average packs/day: 2.0 packs/day for 46.0 years (92.0 ttl pk-yrs) Types: Cigarettes Start date: 09/19/1962 Quit date: 09/19/2008 Years since quittin.8 Smokeless tobacco: Never Tobacco comments: Quit Vaping Use Vaping status: Never Used Substance Use Topics Alcohol use: No Drug use: No FAMILY HISTORY Problem Relation Age of Onset Cataract Mother other (Dementia) Mother Coronary Artery Disease Father Heart Father Cataract Father Glaucoma Father Detached Retina No Family History Macular Degen No Family History Blindness No Family History Amblyopia No Family History Strabismus No Family History PAST MEDICAL HISTORY Diagnosis Date Epiretinal membrane (ERM) of left eye Erythrocytosis 09/15/2014 Hyperlipemia 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 CONSTITUTIONAL: Awake, alert, oriented. HEAD (Incl. face): Normocephalic; Atraumatic. EYES: Pupils are reactive. No scleral icterus. HEENT: No oral exudates. NECK: No thyromegaly. No JVD. Evidence of neck surgery. HEMATOLOGY/LYMPHATIC: No petechiae or purpura. No tender or palpable lymph nodes in the cervical, supraclavicular, axillary or inguinal areas. RESPIRATORY: Lungs are clear to auscultation. CARDIOVASCULAR: Regular rate and rhythm. 2 + radial pulse. ABDOMEN: Non-tender, soft, positive bowel sounds. BACK/SPINE: No kyphosis or scoliosis. Non tender to palpation. MUSCULOSKELETAL: No tenderness or swelling, normal range of motion without obvious weakness. EXTREMITIES: No cyanosis, clubbing INTEGUMENTARY: No rashes or masses. NEURO: No sensory or motor deficits, normal cerebellar function, normal gait, cranial nerves intact. PSYCHIATRIC: Pleasant affect. No signs of agitation. LABS: Latest Reference Range AND Units 08/05/24 10:24 Sodium 136 - 144 mmol/L 150 (H) Potassium 3.7 - 5.1 mmol/L 4.3 Chloride 98 - 107 mmol/L 110 (H) CO2 22 - 30 mmol/L 28 BUN 9 - 24 mg/dL 38 (H) Creatinine 0.73 - 1.22 mg/dL 0.70 (L) Glucose 74 - 99 mg/dL 128 (H) Protein, Total 6.3 - 8.0 g/dL 6.9 Calcium 8.5 - 10.2 mg/dL 10.1 Albumin 3.9 - 4.9 g/dL 3.5 (L) Bilirubin, Total 0.2 - 1.3 mg/dL 0.4 Alkaline Phosphatase 38 - 113 U/L 209 (H) ALT 10 - 54 U/L 43 AST 14 - 40 U/L 27 Anion Gap 8 - 15 mmol/L 12 eGFR >=60 mL/min/1.73m? 97 Free T4 0.9 - 1.7 ng/dL 1.1 TSH 0.270 - 4.200 mIU/L 1.670 WBC 3.70 - 11.00 k/uL 6.61 RBC 4.20 - 6.00 m/uL 4.21 Hemoglobin 13.0 - 17.0 g/dL 13.1 Hematocrit 39.0 - 51.0 % 41.2 Platelet Count 150 - 400 k/uL 208 MCV 80.0 - 100.0 fL 97.9 MCH 26.0 - 34.0 pg 31.1 MCHC 30.5 - 36.0 g/dL 31.8 MPV 9.0 - 12.7 fL 11.1 RDW-CV 11.5 - 15.0 % 13.1 DTYPE Manual Neut% % 82.0 Abs Neut (ANC) 1.45 - 7.50 k/uL 5.42 Lymph% % 6.0 Abs Lymph 1.00 - 4.00 k/uL 0.40 (L) Gaston% % 7.0 Abs Gaston <0.87 k/uL 0.46 Eosin% % 2.0 Abs Eosin <0.46 k/uL 0.13 Baso% % 0.0 Abs Baso <0.11 k/uL 0.00 Clements% % 2.0 Myelo% % 1.0 NRBC /100 WBC 0.0 Absolute nRBC <0.01 k/uL <0.01 Red Cell Morph Reviewed: see results of individual morphologies Platelet Estimate Adequate Anisocytosis Present Polychromasia Slight Left Shift Present (H): Data is abnormally high (L): Data is abnormally low Latest Reference Range (more content not included)... Normal [facility] Comprehensive metabolic 2000 panelon 08-09-2024 Albumin [Mass/Vol] 3.3 g/dL Low 3.9-4.9 [facility] Comment on above: Order Comment: Speci men Type: BLOOD SPECIMENOrdering Facility: [facility] Address: [address] [place] [address] Performed By: #### 2 4323-8 ####[facility] LABCLIA [id number] [place] [phone] [facility] ALP [Catalytic activity/Vol] 150 U/L High 38-113 [facility] Comment on above: Order Comment: Speci men Type: BLOOD SPECIMENOrdering Facility: [facility] Address: [address] [place] [address] Performed By: #### 2 4323-8 ####[facility] LABCLIA [id number] [place] [address] [place] ALT [Catalytic activity/Vol] 18 U/L Normal 10-54 [facility] Comment on above: Order Comment: Speci men Type: BLOOD SPECIMENOrdering Facility: [facility] Address: [address] [place] [address] Performed By: #### 2 4323-8 ####[facility] LABCLIA [id number] [place] [address] [place] Anion gap [Moles/Vol] 10 mmol/L Normal 8-15 [facility] Comment on above: Order Comment: Speci men Type: BLOOD SPECIMENOrdering Facility: [facility] Address: [address] [place] [address] Performed By: #### 2 4323-8 ####[facility] LABCLIA [id number] [place] [phone] [place] AST [Catalytic activity/Vol] 21 U/L Normal 14-40 [facility] Comment on above: Order Comment: Speci men Type: BLOOD SPECIMENOrdering Facility: [facility] Address: [address] [place] [address] Performed By: #### 2 4323-8 ####[facility] LABCLIA [id number] [place] [phone] [place] Bilirubin [Mass/Vol] 0.7 mg/dL Normal 0.2-1.3 [facility] Comment on above: Order Comment: Speci men Type: BLOOD SPECIMENOrdering Facility: [facility] Address: [address] [place] [address] Performed By: #### 2 4323-8 ####[facility] LABCLIA [id number] [place] [address] [place] Calcium [Mass/Vol] 9.2 mg/dL Normal 8.5-10.2 [facility] Comment on above: Order Comment: Speci men Type: BLOOD SPECIMENOrdering Facility: [facility] Address: [address] [place] [address] Performed By: #### 2 4323-8 ####[facility] LABCLIA [id number] [place] [address] [place] Chloride [Moles/Vol] 98 mmol/L Normal 98-107 [facility] Comment on above: Order Comment: Speci men Type: BLOOD SPECIMENOrdering Facility: [facility] Address: [address] [place] [address] Performed By: #### 2 4323-8 ####[facility] LABIA [id number] [place] [phone] [place] CO2 [Moles/Vol] 31 mmol/L High 22-30 [facility] Comment on above: Order Comment: Speci men Type: BLOOD SPECIMENOrdering Facility: [facility] Address: [address] [place] [address] Performed By: #### 2 4323-8 ####[facility] LABIA [id number] [place] [phone] [place] Creatinine [Mass/Vol] 0.78 mg/dL Normal 0.73-1.22 [facility] Comment on above: Order Comment: Speci men Type: BLOOD SPECIMENOrdering Facility: [facility] Address: [address] [place] [address] Performed By: #### 2 4323-8 ####[facility] LABIA [id number] [place] [address] [place] Creatinine and Glomerular filtration rate.predicted panel (S/P/Bld) 94 mL/min/1.73m??? Normal >=60 [facility] Comment on above: Order Comment: Speci men Type: BLOOD SPECIMENOrdering Facility: [facility] Address: [address] [place] [address] Result Comment: Marv mated Glomerular Filtration Rate (eGFR) is calculated using the 2020 CKD-EPI creatinine equation. This equation utilizes serum creatinine, sex, and age as parameters. The creatinine assay has traceable calibration to isotope dilution-mass spectrometry. Refer to KDIGO guidelines for clinical interpretation. In patients with unstable renal function, e.g. those with acute kidney injury, the eGFR may not accurately reflect actual GFR. Performed By: #### 2 4323-8 ####[facility] LABCLIA [id number] [place] [address] [place] Glucose [Mass/Vol] 101 mg/dL High 74-99 [facility] Comment on above: Order Comment: Speci men Type: BLOOD SPECIMENOrdering Facility: [facility] Address: [address] [place] [address] Result Comment: The [place] Diabetes [employer] (ADA) provides guidance for cutoff values for fasting glucose and random glucose. The ADA defines fasting as no caloric intake for at least 8 hours. Fasting plasma glucose results between 100 to 125 mg/dL indicate increased risk for diabetes (prediabetes). Fasting plasma glucose results greater than or equal to 126 mg/dL meet the criteria for diagnosis of diabetes. In the absence of unequivocal hyperglycemia, results should be confirmed by repeat testing. In a patient with classic symptoms of hyperglycemia or hyperglycemic crisis, random plasma glucose results greater than or equal to 200 mg/dL meet the criteria for diagnosis of diabetes. Reference: Standards of Medical Care in Diabetes 2016, [place] [employer]. Diabetes Care. 2016.39(Suppl 1). Performed By: #### 2 4323-8 ####[facility] LABCLIA [id number] [place] [address] [place] Potassium [Moles/Vol] 4.0 mmol/L Normal 3.7-5.1 [facility] Comment on above: Order Comment: Debo wells Type: BLOOD SPECIMENOrdering Facility: [facility] Address: [address] [place] [address] Performed By: #### 2 4323-8 ####[facility] LABCLIA [id number] [place] [address] [place] Protein [Mass/Vol] 6.4 g/dL Normal 6.3-8.0 [facility] Comment on above: Order Comment: Speci men Type: BLOOD SPECIMENOrdering Facility: [facility] Address: [address] [place] [address] Performed By: #### 2 4323-8 ####[facility] LABCLIA [id number] [place] [address] [place] Sodium [Moles/Vol] 139 mmol/L Normal 136-144 [facility] Comment on above: Order Comment: Speci men Type: BLOOD SPECIMENOrdering Facility: [facility] Address: [address] [place] [address] Performed By: #### 2 4323-8 ####[facility] LABCLIA [id number] [place] [phone] [facility] Urea nitrogen [Mass/Vol] 20 mg/dL Normal 9-24 [facility] Comment on above: Order Comment: Speci men Type: BLOOD SPECIMENOrdering Facility: [facility] Address: [address] [place] [address] Performed By: #### 2 4323-8 ####[facility] LABCLIA [id number] [place] [phone] [place] CBC W Auto Differential pane l (Bld)on 08-05-2024 Anisocytosis Ql (Bld) Present Normal [facility] Comment on above: Order Comment: Speci men Type: BLOOD SPECIMENOrdering Facility: [facility] Address: [address] [place] [address] Performed By: #### 5 7021-8 ####[facility] LABCLIA [id number] [place] [phone] [facility] LABORATORYCLIA [id number] [place] [address] [place] Basophils (Bld) [#/Vol] 0.00 10*3/uL Normal <0.11 [facility] Comment on above: Order Comment: Speci men Type: BLOOD SPECIMENOrdering Facility: [facility] Address: [address] [place] [address] Performed By: #### 5 7021-8 ####[facility] LABCLIA [id number] [place] [phone] [facility] LABORATORYCLIA [id number] [address] Basophils/100 WBC (Bld) 0.0 % Normal [facility] Comment on above: Order Comment: Speci men Type: BLOOD SPECIMENOrdering Facility: [facility] Address: [address] [place] [address] Performed By: #### 5 7021-8 ####[facility] LABCLIA [id number] [address] LABORATORYIA [id number] [address] Differential cell count method Nom (Bld) Manual Normal [facility] Comment on above: Order Comment: Speci men Type: BLOOD SPECIMENOrdering Facility: [facility] Address: [address] [place] [address] Performed By: #### 5 7021-8 ####[facility] LABCLIA [id number] [address] LABORATORYCLIA [id number] [place] [address] [place] [facility] Eosinophils (Bld) [#/Vol] 0.13 10*3/uL Normal <0.46 [facility] Comment on above: Order Comment: Speci men Type: BLOOD SPECIMENOrdering Facility: [facility] Address: [address] [place] [address] Performed By: #### 5 7021-8 ####[facility] LABCLIA [id number] [place] [phone] [facility] LABORATORYCLIA [id number] [place] [address] [place] [facility] Eosinophils/100 WBC (Bld) 2.0 % Normal [facility] Comment on above: Order Comment: Speci men Type: BLOOD SPECIMENOrdering Facility: [facility] Address: [address] [place] [address] Performed By: #### 5 7021-8 ####[facility] LABCLIA [id number] [place] [address] [facility] LABORATORYCLIA [id number] [address] Erythrocyte distribution width (RBC) [Ratio] 13.1 % Normal 11.5-15.0 [facility] Comment on above: Order Comment: Speci men Type: BLOOD SPECIMENOrdering Facility: [facility] Address: [address] [place] [address] Performed By: #### 5 7021-8 ####[facility] LABCLIA [id number] [place] [phone] [facility] LABORATORYIA [id number] [address] Hematocrit (Bld) [Volume fraction] 41.2 % Normal 39.0-51.0 [facility] Comment on above: Order Comment: Speci men Type: BLOOD SPECIMENOrdering Facility: [facility] Address: [address] [place] [address] Performed By: #### 5 7021-8 ####[facility] LABCLIA [id number] [place] [phone] [facility] LABORATORYIA [id number] [address] STATES OF [facility] Hemoglobin (Bld) [Mass/Vol] 13.1 g/dL Normal 13.0-17.0 [facility] Comment on above: Order Comment: Speci men Type: BLOOD SPECIMENOrdering Facility: [facility] Address: [address] [place] [address] Performed By: #### 5 7021-8 ####[facility] LABIA [id number] [place] [phone] [facility] LABORATORYCLIA [id number] [place] [address] [place] Lymphocytes (Bld) [#/Vol] 0.40 10*3/uL Low 1.00-4.00 [facility] Comment on above: Order Comment: Speci men Type: BLOOD SPECIMENOrdering Facility: [facility] Address: [address] [place] [address] Performed By: #### 5 7021-8 ####[facility] LABCLIA [id number] [address] LABORATORYCLIA [id number] [place] [address] [place] Lymphocytes/100 WBC (Bld) 6.0 % Normal [facility] Comment on above: Order Comment: Speci men Type: BLOOD SPECIMENOrdering Facility: [facility] Address: [address] [place] [address] Performed By: #### 5 7021-8 ####[facility] LABCLIA [id number] [address] LABORATORYCLIA [id number] [place] [address] [place] [facility] MCH (RBC) [Entitic mass] 31.1 pg Normal 26.0-34.0 [facility] Comment on above: Order Comment: Speci men Type: BLOOD SPECIMENOrdering Facility: [facility] Address: [address] [place] [address] Performed By: #### 5 7021-8 ####[facility] LABCLIA [id number] [place] [phone] [facility] LABORATORYCLIA [id number] [address] STATES OF [facility] MCHC (RBC) [Mass/Vol] 31.8 g/dL Normal 30.5-36.0 [facility] Comment on above: Order Comment: Speci men Type: BLOOD SPECIMENOrdering Facility: [facility] Address: [facility] [place] [address] Performed By: #### 5 7021-8 ####[facility] LABCLIA [id number] [place] [phone] [facility] LABORATORYCLIA [id number] [place] [address] [place] MCV (RBC) [Entitic vol] 97.9 fL Normal 80.0-100.0 [facility] Comment on above: Order Comment: Speci men Type: BLOOD SPECIMENOrdering Facility: [facility] Address: [address] [place] [address] Performed By: #### 5 7021-8 ####[facility] LABIA [id number] [place] [phone] [facility] LABORATORYIA [id number] [place] [address] [place] Metamyelocytes/100 WBC (Bld) 2.0 % Normal [facility] Comment on above: Order Comment: Speci men Type: BLOOD SPECIMENOrdering Facility: [facility] Address: [address] [place] [address] Performed By: #### 5 7021-8 ####[facility] LABIA [id number] [place] [phone] [facility] LABORATORYIA [id number] [place] [address] [place] Monocytes (Bld) [#/Vol] 0.46 10*3/uL Normal <0.87 [facility] Comment on above: Order Comment: Speci men Type: BLOOD SPECIMENOrdering Facility: [facility] Address: [address] [place] [address] Performed By: #### 5 7021-8 ####[facility] LABCLIA [id number] [place] [phone] [facility] LABORATORYIA [id number] [place] [address] [place] Monocytes/100 WBC (Bld) 7.0 % Normal [facility] Comment on above: Order Comment: Speci men Type: BLOOD SPECIMENOrdering Facility: [facility] Address: [address] [place] [address] Performed By: #### 5 7021-8 ####[facility] LABCLIA [id number] [place] [phone] [facility] LABORATORYCLIA [id number] [place] [address] [place] MYELO% 1.0 % Normal [facility] Comment on above: Order Comment: Speci men Type: BLOOD SPECIMENOrdering Facility: [facility] Address: [address] [place] [address] Performed By: #### 5 7021-8 ####[facility] LABCLIA [id number] [address] LABORATORYCLIA [id number] [place] [address] [place] Neutrophils (Bld) [#/Vol] 5.42 10*3/uL Normal 1.45-7.50 [facility] Comment on above: Order Comment: Speci men Type: BLOOD SPECIMENOrdering Facility: [facility] Address: [address] [place] [address] Performed By: #### 5 7021-8 ####[facility] LABCLIA [id number] [place] [phone] [facility] LABORATORYCLIA [id number] [place] [address] [place] Neutrophils/100 WBC (Bld) 82.0 % Normal [facility] Comment on above: Order Comment: Speci men Type: BLOOD SPECIMENOrdering Facility: [facility] Address: [address] [place] [address] Performed By: #### 5 7021-8 ####[facility] LABCLIA [id number] [place] [phone] [facility] LABORATORYCLIA [id number] [place] [address] [place] Nucleated RBC (Bld) [#/Vol] 10*3/uL Normal <0.01 [facility] Comment on above: Order Comment: Speci men Type: BLOOD SPECIMENOrdering Facility: [facility] Address: [address] [place] [address] Performed By: #### 5 7021-8 ####[facility] LABCLIA [id number] [address] LABORATORYCLIA [id number] [place] [address] [place] Nucleated RBC/100 WBC (Bld) [Ratio] 0.0 /100 WBC Normal [facility] Comment on above: Order Comment: Speci men Type: BLOOD SPECIMENOrdering Facility: [facility] Address: [address] [place] [address] Performed By: #### 5 7021-8 ####[facility] LABCLIA [id number] [place] [phone] [facility] LABORATORYIA [id number] [place] [address] [place] [facility] Platelet mean volume (Bld) [Entitic vol] 11.1 fL Normal 9.0-12.7 [facility] Comment on above: Order Comment: Speci men Type: BLOOD SPECIMENOrdering Facility: [facility] Address: [address] [place] [address] Performed By: #### 5 7021-8 ####[facility] LABIA [id number] [place] [phone] [facility] LABORATORYCLIA [id number] [place] [address] [place] Platelets (Bld) [#/Vol] 208 10*3/uL Normal 150-400 [facility] Comment on above: Order Comment: Speci men Type: BLOOD SPECIMENOrdering Facility: [facility] Address: [address] [place] [address] Performed By: #### 5 7021-8 ####[facility] LABCLIA [id number] [place] [address] [facility] LABORATORYCLIA [id number] [place] [address] [place] Platelets Estimate (Bld) [#/Vol] Adequate Normal [facility] Comment on above: Order Comment: Speci men Type: BLOOD SPECIMENOrdering Facility: [facility] Address: [address] [place] [address] Performed By: #### 5 7021-8 ####[facility] LABCLIA [id number] [place] [phone] [facility] LABORATORYCLIA [id number] [place] [address] [place] Polychromasia LM Ql (Bld) Slight Normal [facility] Comment on above: Order Comment: Speci men Type: BLOOD SPECIMENOrdering Facility: [facility] Address: [address] [place] [address] Performed By: #### 5 7021-8 ####[facility] LABCLIA [id number] [place] [phone] [facility] LABORATORYCLIA [id number] [place] [address] [place] RBC (Bld) [#/Vol] 4.21 10*6/uL Normal 4.20-6.00 [facility] Comment on above: Order Comment: Speci men Type: BLOOD SPECIMENOrdering Facility: [facility] Address: [address] [place] [address] Performed By: #### 5 7021-8 ####[facility] LABCLIA [id number] [place] [phone] [facility] LABORATORYCLIA [id number] [address] [place] RED CELL MORPH Reviewed: see result s of individual morphologies Normal [facility] Comment on above: Order Comment: Speci men Type: BLOOD SPECIMENOrdering Facility: [facility] Address: [address] [place] [address] Performed By: #### 5 7021-8 ####[facility] LABCLIA [id number] [place] [phone] [facility] LABORATORYCLIA [id number] [address] OF [facility] WBC (Bld) [#/Vol] 6.61 10*3/uL Normal 3.70-11.00 [facility] Comment on above: Order Comment: Speci men Type: BLOOD SPECIMENOrdering Facility: [facility] Address: [address] [place] [address] Result Comment: No c lot detected. Performed By: #### 5 7021-8 ####[facility] LABCLIA [id number] [place] [phone] [facility] LABORATORYCLIA [id number] [address] [facility] WBC Left Shift Ql (Bld) Present Normal [facility] Comment on above: Order Comment: Speci men Type: BLOOD SPECIMENOrdering Facility: [facility] Address: [address] [place] [address] Performed By: #### 5 7021-8 ####[facility] LABCLIA [id number] [place] [phone] [facility] LABORATORYCLIA [id number] [place] [address] [place] Comprehensive metabolic 2000 panelon 08-05-2024 Albumin [Mass/Vol] 3.5 g/dL Low 3.9-4.9 [facility] Comment on above: Order Comment: Speci men Type: BLOOD SPECIMENOrdering Facility: [facility] Address: [address] [place] [address] Performed By: #### 2 4323-8 ####[facility] LABCLIA [id number] [place] [address] [place] ALP [Catalytic activity/Vol] 209 U/L High 38-113 [facility] Comment on above: Order Comment: Speci men Type: BLOOD SPECIMENOrdering Facility: [facility] Address: [address] [place] [address] Performed By: #### 2 4323-8 ####[facility] LABCLIA [id number] [place] [phone] [place] ALT [Catalytic activity/Vol] 43 U/L Normal 10-54 [facility] Comment on above: Order Comment: Speci men Type: BLOOD SPECIMENOrdering Facility: [facility] Address: [address] [place] [address] Performed By: #### 2 4323-8 ####[facility] LABIA [id number] [place] [phone] [place] Anion gap [Moles/Vol] 12 mmol/L Normal 8-15 [facility] Comment on above: Order Comment: Speci men Type: BLOOD SPECIMENOrdering Facility: [facility] Address: [address] [place] [address] Performed By: #### 2 4323-8 ####[facility] LABCLIA [id number] [place] [phone] [place] AST [Catalytic activity/Vol] 27 U/L Normal 14-40 [facility] Comment on above: Order Comment: Speci men Type: BLOOD SPECIMENOrdering Facility: [facility] Address: [address] [place] [address] Performed By: #### 2 4323-8 ####[facility] LABIA [id number] [place] [address] [place] Bilirubin [Mass/Vol] 0.4 mg/dL Normal 0.2-1.3 [facility] Comment on above: Order Comment: Speci men Type: BLOOD SPECIMENOrdering Facility: [facility] Address: [address] [place] [address] Performed By: #### 2 4323-8 ####[facility] LABIA [id number] [place] [address] [place] Calcium [Mass/Vol] 10.1 mg/dL Normal 8.5-10.2 [facility] Comment on above: Order Comment: Speci men Type: BLOOD SPECIMENOrdering Facility: [facility] Address: [address] [place] [address] Performed By: #### 2 4323-8 ####[facility] LABIA [id number] [place] [phone] [place] Chloride [Moles/Vol] 110 mmol/L High 98-107 [facility] Comment on above: Order Comment: Speci men Type: BLOOD SPECIMENOrdering Facility: [facility] Address: [address] [place] [address] Performed By: #### 2 4323-8 ####[facility] LABIA [id number] [place] [phone] [place] CO2 [Moles/Vol] 28 mmol/L Normal 22-30 [facility] Comment on above: Order Comment: Speci men Type: BLOOD SPECIMENOrdering Facility: [facility] Address: [address] [place] [address] Performed By: #### 2 4323-8 ####[facility] LABIA [id number] [place] [address] [place] Creatinine [Mass/Vol] 0.70 mg/dL Low 0.73-1.22 [facility] Comment on above: Order Comment: Speci men Type: BLOOD SPECIMENOrdering Facility: [facility] Address: [address] [place] [address] Performed By: #### 2 4323-8 ####[facility] LABIA [id number] [place] [phone] [place] Creatinine and Glomerular filtration rate.predicted panel (S/P/Bld) 97 mL/min/1.73m??? Normal >=60 [facility] Comment on above: Order Comment: Debo wells Type: BLOOD SPECIMENOrdering Facility: [facility] Address: [address] [place] [address] Result Comment: Marv mated Glomerular Filtration Rate (eGFR) is calculated using the 2020 CKD-EPI creatinine equation. This equation utilizes serum creatinine, sex, and age as parameters. The creatinine assay has traceable calibration to isotope dilution-mass spectrometry. Refer to KDIGO guidelines for clinical interpretation. In patients with unstable renal function, e.g. those with acute kidney injury, the eGFR may not accurately reflect actual GFR. Performed By: #### 2 4323-8 ####[facility] LABCLIA [id number] [place] [address] [place] Glucose [Mass/Vol] 128 mg/dL High 74-99 [facility] Comment on above: Order Comment: Debo wells Type: BLOOD SPECIMENOrdering Facility: [facility] Address: [address] [place] [address] Result Comment: The [place] Diabetes Association (ADA) provides guidance for cutoff values for fasting glucose and random glucose. The ADA defines fasting as no caloric intake for at least 8 hours. Fasting plasma glucose results between 100 to 125 mg/dL indicate increased risk for diabetes (prediabetes). Fasting plasma glucose results greater than or equal to 126 mg/dL meet the criteria for diagnosis of diabetes. In the absence of unequivocal hyperglycemia, results should be confirmed by repeat testing. In a patient with classic symptoms of hyperglycemia or hyperglycemic crisis, random plasma glucose results greater than or equal to 200 mg/dL meet the criteria for diagnosis of diabetes. Reference: Standards of Medical Care in Diabetes 2016, [place] [employer]. Diabetes Care. 2016.39(Suppl 1). Performed By: #### 2 4323-8 ####[facility] LABCLIA [id number] [place] [address] [place] Potassium [Moles/Vol] 4.3 mmol/L Normal 3.7-5.1 [facility] Comment on above: Order Comment: Speci men Type: BLOOD SPECIMENOrdering Facility: [facility] Address: [address] [place] [address] Performed By: #### 2 4323-8 ####[facility] LABCLIA [id number] [place] [phone] [place] Protein [Mass/Vol] 6.9 g/dL Normal 6.3-8.0 [facility] Comment on above: Order Comment: Speci men Type: BLOOD SPECIMENOrdering Facility: [facility] Address: [address] [place] [address] Performed By: #### 2 4323-8 ####[facility] LABCLIA [id number] [place] [phone] [place] Sodium [Moles/Vol] 150 mmol/L High 136-144 [facility] Comment on above: Order Comment: Speci men Type: BLOOD SPECIMENOrdering Facility: [facility] Address: [address] [place] [address] Performed By: #### 2 4323-8 ####[facility] LABCLIA [id number] [place] [phone] [place] Urea nitrogen [Mass/Vol] 38 mg/dL High 9-24 [facility] Comment on above: Order Comment: Speci men Type: BLOOD SPECIMENOrdering Facility: [facility] Address: [address] [place] [address] Performed By: #### 2 4323-8 ####[facility] LABCLIA [id number] [place] [phone] [place] T4 Free SerPl-mCncon 025 Free T4 [Mass/Vol] 1.1 ng/dL Normal 0.9-1.7 [facility] Comment on above: Order Comment: Speci men Type: BLOOD SPECIMENOrdering Facility: [facility] Address: [address] [place] [address] Performed By: #### 3 024-7, 3016-3 ####[facility] LABCLIA [id number] [address] [place] [address] [place] TSH SerPl-aCncon 08-05-2024 TSH Qn 1.670 m[IU]/L Normal 0.270-4.200 [facility] Comment on above: Order Comment: Speci men Type: BLOOD SPECIMENOrdering Facility: [facility] Address: [address] [place] [address] Performed By: #### 3 024-7, 3016-3 ####[facility] LABCLIA [id number] [address], [facility]95 [facility] [place] CBCon 07-31-2024 ABSOLUTE BAS 0.0 10*3/uL Normal 0.0-0.2 [facility] Comment on above: Performed By: #### M G, ACBC, PT, RENF, LIP2 #### Testing performed at [address] [address] ABSOLUTE EOS 0.0 10*3/uL Normal 0.0-0.7 [facility] Comment on above: Performed By: #### M G, ACBC, PT, RENF, LIP2 #### Testing performed at [address] [address] ABSOLUTE NEUTROPHIL COUNT 5.9 10*3/uL Normal 1.4-6.5 [facility] Comment on above: Performed By: #### M G, ACBC, PT, RENF, LIP2 #### Testing performed at [address] [address] Basophils/100 WBC (Bld) 0.1 % Normal 0.0-2.0 [facility] Comment on above: Performed By: #### M G, ACBC, PT, RENF, LIP2 #### Testing performed at [address] [address] DTYPE AUTO DIFF Normal [facility] Comment on above: Performed By: #### M G, ACBC, PT, RENF, LIP2 #### Testing performed at [address] [address] Eosinophils/100 WBC (Bld) 0.6 % Normal 0.0-11.0 [facility] Comment on above: Performed By: #### M G, ACBC, PT, RENF, LIP2 #### Testing performed at [address] [address] Lymphocytes (Bld) [#/Vol] 0.5 10*3/uL Low 1.2-3.4 [facility] Comment on above: Performed By: #### M G, ACBC, PT, RENF, LIP2 #### Testing performed at [address] [address] Lymphocytes/100 WBC (Bld) 6.6 % Low 20.0-55.0 [facility] Comment on above: Performed By: #### M G, ACBC, PT, RENF, LIP2 #### Testing performed at [address] [address] Monocytes (Bld) [#/Vol] 0.5 10*3/uL Normal 0.0-0.7 [facility] Comment on above: Performed By: #### M G, ACBC, PT, RENF, LIP2 #### Testing performed at [address] [address] Monocytes/100 WBC (Bld) 7.5 % Normal 0.0-10.0 [facility] Comment on above: Performed By: #### M G, ACBC, PT, RENF, LIP2 #### Testing performed at [address] [address] Neutrophils/100 WBC (Bld) 85.2 % High 37.0-75.0 [facility] Comment on above: Performed By: #### M G, ACBC, PT, RENF, LIP2 #### Testing performed at [address] [address] Erythrocyte distribution width (RBC) [Ratio] 14.2 % Normal 11.5-14.5 [facility] Comment on above: Performed By: #### M G, ACBC, PT, RENF, LIP2 #### Testing performed at [address] [address] Hematocrit (Bld) [Volume fraction] 41.6 % Low 42.0-52.0 [facility] Comment on above: Performed By: #### M G, ACBC, PT, RENF, LIP2 #### Testing performed at [address] [address] Hemoglobin (Bld) [Mass/Vol] 14.4 g/dL Normal 14.0-18.0 [facility] Comment on above: Performed By: #### M G, ACBC, PT, RENF, LIP2 #### Testing performed at [address] [address] MCH (RBC) [Entitic mass] 32.5 pg Normal 26.0-35.0 [facility] Comment on above: Performed By: #### M G, ACBC, PT, RENF, LIP2 #### Testing performed at [address] [address] MCHC (RBC) [Mass/Vol] 34.5 g/dL Normal 27.0-37.0 [facility] Comment on above: Performed By: #### M G, ACBC, PT, RENF, LIP2 #### Testing performed at [address] [address] MCV (RBC) [Entitic vol] 94.1 fL Normal 80.0-100.0 [facility] Comment on above: Performed By: #### M G, ACBC, PT, RENF, LIP2 #### Testing performed at [address] [address] Platelet mean volume (Bld) [Entitic vol] 10.0 fL Normal 7.4-11.0 [facility] Comment on above: Performed By: #### M G, ACBC, PT, RENF, LIP2 #### Testing performed at [address] [address] Platelets (Bld) [#/Vol] 133 10*3/uL Normal 130-400 [facility] Comment on above: Performed By: #### M G, ACBC, PT, RENF, LIP2 #### Testing performed at [address] [address] RBC (Bld) [#/Vol] 4.42 10*6/uL Normal 4.0-6.1 [facility] Comment on above: Performed By: #### M G, ACBC, PT, RENF, LIP2 #### Testing performed at [address] [address] WBC (Bld) [#/Vol] 6.9 10*3/uL Normal 3.6-11.0 [facility] Comment on above: Performed By: #### M G, ACBC, PT, RENF, LIP2 #### Testing performed at [address] [address] CBC, EDIF, PLATELETon 2024 ABSOLUTE BASOPHIL COUNT 0 10*3/uL 0.0 - 0.2 10*3/uL [facility] Basophils/100 WBC (Bld) 0.1 % 0.0 - 2.0 % [facility] Differential cell count method Nom (Bld) AUTO DIFF % [facility] Eosinophils (Bld) [#/Vol] 0 10*3/uL 0.0 - 0.7 10*3/uL [facility] Eosinophils/100 WBC (Bld) 0.6 % 0.0 - 11.0 % [facility] Erythrocyte distribution width (RBC) [Ratio] 14.2 % 11.5 - 14.5 % [facility] Hematocrit (Bld) [Volume fraction] 41.6 % Low 42.0 - 52.0 % [facility] Hemoglobin (Bld) [Mass/Vol] 14.4 g/dL [facility] Interpretation and review of laboratory results Abnormal [facility] Lymphocytes (Bld) [#/Vol] 0.5 10*3/uL Low 1.2 - 3.4 10*3/uL [facility] Lymphocytes/100 WBC (Bld) 6.6 % Low 20.0 - 55.0 % [facility] MCH (RBC) [Entitic mass] 32.5 pg 26.0 - 35.0 PG [facility] MCHC (RBC) [Mass/Vol] 34.5 g/dL [facility] MCV (RBC) [Entitic vol] 94.1 fL [facility] Monocytes (Bld) [#/Vol] 0.5 10*3/uL 0.0 - 0.7 10*3/uL [facility] Monocytes/100 WBC (Bld) 7.5 % 0.0 - 10.0 % [facility] Neutrophils (Bld) [#/Vol] 5.9 10*3/uL 1.4 - 6.5 10*3/uL [facility] Neutrophils/100 WBC (Bld) 85.2 % High 37.0 - 75.0 % [facility] Platelet mean volume (Bld) [Entitic vol] 10 fL [facility] Platelets (Bld) [#/Vol] 133 10*3/uL 130 - 400 10*3/uL [facility] RBC (Bld) [#/Vol] 4.42 10*6/uL 4.0 - 6.1 10*6/uL [facility] WBC (Bld) [#/Vol] 6.9 10*3/uL 3.6 - 11.0 10*3/uL [facility] GLUCOSE (POC DEVICE)on 07-31 GLUCOSE, POINT OF CARE 155 High [facility] Interpretation and review of laboratory results Abnormal [facility] Operator [id number] [facility] LIPID PANEL W CALCULATED LDL on 07-31-2024 Cholesterol [Mass/Vol] 195 mg/dL [facility] Cholesterol in HDL [Mass/Vol] 57 mg/dL [facility] Cholesterol in LDL [Mass/Vol] 109 mg/dL High NINF [facility] Cholesterol in VLDL [Mass/Vol] 29 mg/dL High [facility] Cholesterol.total/Cho lesterol in HDL [Mass ratio] 3.42 {ratio} RATIO [facility] Comment on above: RISK TOTAL/HDL RATIO MEN WOMEN 1/2 AVERAGE 3.43 3.27 AVERAGE 4.97 4.44 2X AVERAGE 9.55 7.05 3X AVERAGE 23.99 11.04 Triglyceride [Mass/Vol] 147 mg/dL [facility] LIPID PROFILEon 07-31-2024 Cholesterol [Mass/Vol] 195 mg/dL Normal 120-200 [facility] Comment on above: Performed By: #### U AKASH, UMAC #### Testing performed at [facility] [address] [place] [address] Cholesterol in HDL [Mass/Vol] 57 mg/dL Normal 26-63 [facility] Comment on above: Performed By: #### U AKASH, UMAC #### Testing performed at [address] [place] [address] Cholesterol in LDL [Mass/Vol] 109 mg/dL High <100 [facility] Comment on above: Performed By: #### U AKASH, UMAC #### Testing performed at [address] [address] Cholesterol in VLDL [Mass/Vol] 29 mg/dL High 5-25 [facility] Comment on above: Performed By: #### U AKASH, UMAC #### Testing performed at [address] [address] Cholesterol.total/Cho lesterol in HDL [Mass ratio] 3.42 {ratio} Normal [facility] Comment on above: Result Comment: RISK TOTAL/HDL RATIO MEN WOMEN 1/2 AVERAGE 3.43 3.27 AVERAGE 4.97 4.44 2X AVERAGE 9.55 7.05 3X AVERAGE 23.99 11.04 Performed By: #### U AKASH, UMAC #### Testing performed at [address] [address] Triglyceride [Mass/Vol] 147 mg/dL Normal 0-150 [facility] Comment on above: Performed By: #### U AKASH, UMAC #### Testing performed at [address] [address] MAGNESIUMon 07-31-2024 Magnesium [Mass/Vol] 2.4 mg/dL High [facility] Magnesium [Mass/Vol] 2.4 mg/dL High 1.6-2.3 [facility] Comment on above: Performed By: #### U AKASH, UMAC #### Testing performed at [address] [place] [address] No Panel Informationon 07-31 Interpretation and review of laboratory results Abnormal [facility] POCT GLUCOSEon 07-31-2024 Glucose [Mass/Vol] 155 mg/dL High 70-100 [facility] SCIENCE ANALYST [id number] Normal [facility] PROTIMEon 07-31-2024 INR Coag (PPP) [Relative time] 1.30 {INR} High 0.85-1.10 [facility] Comment on above: Result Comment: 2.0-3.0 THERAPEUTIC RANGE 2.5-3.5 MECHANICAL VALVE RANGE Performed By: #### M G, ACBC, PT, RENF, LIP2 #### Testing performed at [address] [address] PT Coag (PPP) [Time] 16.4 s High 11.8-14.4 [facility] Comment on above: Performed By: #### M G, ACBC, PT, RENF, LIP2 #### Testing performed at [address] [address] PROTIME-INRon 07-31-2024 INR Coag (PPP) [Relative time] 1.3 {INR} High 0.85 - 1.10 [facility] Comment on above: 2.0-3.0 THERAPEUTIC RANGE 2.5-3.5 MECHANICAL VALVE RANGE Interpretation and review of laboratory results Abnormal [facility] PT Coag (PPP) [Time] 16.4 s High [facility] Portable XR Chest Viewson IMPRESSION: Small amount of opacities throughout the right mid and bilateral lower lungs, correlate clinically. Remainder of the chest is unremarkable. RADIOLOGY Exam: Radiographs: X R CHEST 1 VIEW PORTABLE Reason for exam: Hypoxia Comparison: Chest x-ray dated 05/24/2023 RADIOLOGY Israel Mcmahan MD - 07/31/2024 Exam: Radiographs: XR CHEST 1 VIEW PORTABLE Reason for exam: Hypoxia Comparison: Chest x-ray dated 05/24/2023 IMPRESSION IMPRESSION: Small amount of opacities throughout the right mid and bilateral lower lungs, correlate clinically. Remainder of the chest is unremarkable. [facility] Radiology Study observation (narrative) [facility] Portable XR Chest ViewsOrder ed By: Israel Mcmahan on 07-31-2024 [facility] Work Phone: RENAL FUNCTION PANELon 07-31 Albumin [Mass/Vol] 3.6 g/dL 3.5 - 5.0 g/dL [facility] Calcium [Mass/Vol] 8.7 mg/dL 8.4 - 10. 2 mg/dL [facility] Chloride [Moles/Vol] 103 mmol/L [facility] Comment on above: Please note: Triglyc eride levels of 600mg/dL or higher may positively bias chloride results by approximately 2.1 mmol CO2 [Moles/Vol] 33 mmol/L High [facility] Creatinine [Mass/Vol] 0.66 mg/dL Low 0.70 - 1.20 mg/dL [facility] GFR COMMENT Average GFR for 70+ years old = 75. [facility] Comment on above: Chronic Kidney disea se, GFR = <60. Kidney failure, GFR = <15. The GFR estimate is not adjusted for extreme body surface area or acute process, nor has it been validated for women or ethnic groups other than and . GFR/1.73 sq M.predicted MDRD (S/P/Bld) [Vol rate/Area] 125 mL/min/{1.73_m2} ml/min/1.73sq .m [facility] Glucose post fast [Mass/Vol] 162 mg/dL High [facility] Comment on above: NORMAL <100 mg/dL PREDIABETES 101-126 mg/dL DIABETES 126 mg/dL or higher Interpretation and review of laboratory results Abnormal [facility] Phosphate [Mass/Vol] 2.6 mg/dL [facility] Potassium [Moles/Vol] 4 mmol/L [facility] Sodium [Moles/Vol] 145 mmol/L [facility] Urea nitrogen [Mass/Vol] 30 mg/dL High 7 - 20 mg/dL [facility] Albumin [Mass/Vol] 4.2 g/dL 3.5 - 5.0 g/dL [facility] Calcium [Mass/Vol] 9.2 mg/dL 8.4 - 10. 2 mg/dL [facility] Chloride [Moles/Vol] 101 mmol/L [facility] Comment on above: Please note: Triglyc eride levels of 600mg/dL or higher may positively bias chloride results by approximately 2.1 mmol CO2 [Moles/Vol] 34 mmol/L High [facility] Creatinine [Mass/Vol] 0.77 mg/dL 0.70 - 1.20 mg/dL [facility] GFR COMMENT Average GFR for 70+ years old = 75. [facility] Comment on above: Chronic Kidney disea se, GFR = <60. Kidney failure, GFR = <15. The GFR estimate is not adjusted for extreme body surface area or acute process, nor has it been validated for women or ethnic groups other than and . GFR/1.73 sq M.predicted MDRD (S/P/Bld) [Vol rate/Area] 105 mL/min/{1.73_m2} ml/min/1.73sq .m [facility] Glucose post fast [Mass/Vol] 160 mg/dL High [facility] Comment on above: NORMAL <100 mg/dL PREDIABETES 101-126 mg/dL DIABETES 126 mg/dL or higher Phosphate [Mass/Vol] 3 mg/dL [facility] Potassium [Moles/Vol] 4.4 mmol/L [facility] Sodium [Moles/Vol] 148 mmol/L High [facility] Urea nitrogen [Mass/Vol] 33 mg/dL High 7 - 20 mg/dL [facility] RENAL PANEL,FASTINGon 2024 Albumin [Mass/Vol] 3.6 g/dL Normal 3.5-5.0 [facility] Comment on above: Performed By: #### C OVID #### Testing performed at [address] [address] Calcium [Mass/Vol] 8.7 mg/dL Normal 8.4-10.2 [facility] Comment on above: Performed By: #### C OVID #### Testing performed at [address] [address] Chloride [Moles/Vol] 103 mmol/L Normal 98-107 [facility] Comment on above: Result Comment: Hailey rossi note: Triglyceride levels of 600mg/dL or higher may positively bias chloride results by approximately 2.1 mmol Performed By: #### C OVID #### Testing performed at [address] [address] CO2 [Moles/Vol] 33 mmol/L High 22-30 [facility] Comment on above: Performed By: #### C OVID #### Testing performed at [address] [address] Creatinine [Mass/Vol] 0.66 mg/dL Low 0.70-1.20 [facility] Comment on above: Performed By: #### C OVID #### Testing performed at [address] [address] GFR Information Average GFR for 70+ years old = 75. Normal [facility] Comment on above: Result Comment: Cardiac Exercise Physiologist raul Kidney disease, GFR = <60. Kidney failure, GFR = <15. The GFR estimate is not adjusted for extreme body surface area or acute process, nor has it been validated for women or ethnic groups other than and . Performed By: #### C OVID #### Testing performed at [address] [address] GFR/1.73 sq M.predicted MDRD (S/P/Bld) [Vol rate/Area] 125 mL/min/{1.73_m2} Normal [facility] Comment on above: Performed By: #### C OVID #### Testing performed at [address] [address] Glucose [Mass/Vol] 162 mg/dL High 70-100 [facility] Comment on above: Result Comment: NORMAL <100 mg/dL PREDIABETES 101-126 mg/dL DIABETES 126 mg/dL or higher Performed By: #### C OVID #### Testing performed at [address] [address] PHOSPHOROUS 2.6 MG/DL Normal 2.5-4.5 [facility] Comment on above: Performed By: #### C OVID #### Testing performed at [address] [address] Potassium [Moles/Vol] 4.0 mmol/L Normal 3.5-5.1 [facility] Comment on above: Performed By: #### C OVID #### Testing performed at [address] [address] Sodium [Moles/Vol] 145 mmol/L Normal 137-145 [facility] Comment on above: Performed By: #### C OVID #### Testing performed at [address] [address] Urea nitrogen [Mass/Vol] 30 mg/dL High 7-20 [facility] Comment on above: Performed By: #### C OVID #### Testing performed at [address] [address] Albumin [Mass/Vol] 4.2 g/dL Normal 3.5-5.0 [facility] Comment on above: Performed By: #### M G, ACBC, PT, RENF, LIP2 #### Testing performed at [address] [address] Calcium [Mass/Vol] 9.2 mg/dL Normal 8.4-10.2 [facility] Comment on above: Performed By: #### M G, ACBC, PT, RENF, LIP2 #### Testing performed at [address] [address] Chloride [Moles/Vol] 101 mmol/L Normal 98-107 [facility] Comment on above: Result Comment: Hailey rossi note: Triglyceride levels of 600mg/dL or higher may positively bias chloride results by approximately 2.1 mmol Performed By: #### M G, ACBC, PT, RENF, LIP2 #### [place] [address] CO2 [Moles/Vol] 34 mmol/L High 22-30 [facility] Comment on above: Performed By: #### M G, ACBC, PT, RENF, LIP2 #### [place] [address] Creatinine [Mass/Vol] 0.77 mg/dL Normal 0.70-1.20 [facility] Comment on above: Performed By: #### M G, ACBC, PT, RENF, LIP2 #### Testing performed at [address] [address] GFR Information Average GFR for 70+ years old = 75. Normal [facility] Comment on above: Result Comment: Cardiac Exercise Physiologist raul Kidney disease, GFR = <60. Kidney failure, GFR = <15. The GFR estimate is not adjusted for extreme body surface area or acute process, nor has it been validated for women or ethnic groups other than and . Performed By: #### M G, ACBC, PT, RENF, LIP2 #### Testing performed at [place] [id number] GFR/1.73 sq M.predicted MDRD (S/P/Bld) [Vol rate/Area] 105 mL/min/{1.73_m2} Normal [facility] Comment on above: Performed By: #### M G, ACBC, PT, RENF, LIP2 #### Testing performed at [address] [address] Glucose [Mass/Vol] 160 mg/dL High 70-100 [facility] Comment on above: Result Comment: NORMAL <100 mg/dL PREDIABETES 101-126 mg/dL DIABETES 126 mg/dL or higher Performed By: #### M G, ACBC, PT, RENF, LIP2 #### Testing performed at [address] [address] PHOSPHOROUS 3.0 MG/DL Normal 2.5-4.5 [facility] Comment on above: Performed By: #### M G, ACBC, PT, RENF, LIP2 #### Testing performed at [address] [address] Potassium [Moles/Vol] 4.4 mmol/L Normal 3.5-5.1 [facility] Comment on above: Performed By: #### M G, ACBC, PT, RENF, LIP2 #### Testing performed at [address] [address] Sodium [Moles/Vol] 148 mmol/L High 137-145 [facility] Comment on above: Performed By: #### M G, ACBC, PT, RENF, LIP2 #### Testing performed at [address] [address] Urea nitrogen [Mass/Vol] 33 mg/dL High 7-20 [facility] Comment on above: Performed By: #### M G, ACBC, PT, RENF, LIP2 #### Testing performed at [address] [address] XR CHEST 1 VIEW PORTABLEon 0 07-31-2024 XR CHEST 1 VIEW PORTABLE Exam: Radiographs: XR CHEST 1 VIEW PORTABLE Reason for exam: Hypoxia Comparison: Chest x-ray dated 05/24/2023 IMPRESSION: Small amount of opacities throughout the right mid and bilateral lower lungs, correlate clinically. Remainder of the chest is unremarkable. Normal [facility] BLOOD CULTUREon 07-30-2024 Bacteria identified Cx Nom (Bld) SPECIMEN DESCRIPTION PERIPHERAL BLOOD DRAW CULTURE NO GROWTH 5 DAYS REPORT STATUS 08/04/2024 * Result Note: FINAL * Normal [facility] Comment on above: Performed By: #### B LC #### Testing performed at [address] [place] [address] Bacteria identified Cx Nom (Bld) SPECIMEN DESCRIPTION PERIPHERAL BLOOD DRAW CULTURE NO GROWTH 5 DAYS REPORT STATUS 08/04/2024 * Result Note: FINAL * Normal [facility] Comment on above: Performed By: #### U AKASH, UMAC #### Testing performed at [address] [address] CBCon 07-30-2024 ABSOLUTE BAS 0.0 10*3/uL Normal 0.0-0.2 [facility] Comment on above: Performed By: #### U AKASH, UMAC #### Testing performed at [address] [address] ABSOLUTE EOS 0.0 10*3/uL Normal 0.0-0.7 [facility] Comment on above: Performed By: #### U AKASH, UMAC #### Testing performed at [address] [place] [address] ABSOLUTE NEUTROPHIL COUNT 12.6 10*3/uL High 1.4-6.5 [facility] Comment on above: Performed By: #### U AKASH, UMAC #### Testing performed at [address] [address] Basophils/100 WBC (Bld) 0.1 % Normal 0.0-2.0 [facility] Comment on above: Performed By: #### U AKASH, UMAC #### Testing performed at [address] [address] DTYPE AUTO DIFF Normal [facility] Comment on above: Performed By: #### U AKASH, UMAC #### Testing performed at [address] [address] Eosinophils/100 WBC (Bld) 0.0 % Normal 0.0-11.0 [facility] Comment on above: Performed By: #### U AKASH, UMAC #### Testing performed at [address] [address] Lymphocytes (Bld) [#/Vol] 0.2 10*3/uL Low 1.2-3.4 [facility] Comment on above: Performed By: #### U AKASH, UMAC #### Testing performed at [address] [address] Lymphocytes/100 WBC (Bld) 1.5 % Low 20.0-55.0 [facility] Comment on above: Performed By: #### U AKASH, UMAC #### Testing performed at [address] [address] Monocytes (Bld) [#/Vol] 0.7 10*3/uL Normal 0.0-0.7 [facility] Comment on above: Performed By: #### U AKASH, UMAC #### Testing performed at [address] [address] Monocytes/100 WBC (Bld) 5.3 % Normal 0.0-10.0 [facility] Comment on above: Performed By: #### U AKASH, UMAC #### Testing performed at [address] [address] Neutrophils/100 WBC (Bld) 93.1 % High 37.0-75.0 [facility] Comment on above: Performed By: #### U AKASH, UMAC #### Testing performed at [address] [address] Erythrocyte distribution width (RBC) [Ratio] 14.0 % Normal 11.5-14.5 [facility] Comment on above: Performed By: #### U AKASH, UMAC #### Testing performed at [address] [address] Hematocrit (Bld) [Volume fraction] 41.3 % Low 42.0-52.0 [facility] Comment on above: Performed By: #### U AKASH, UMAC #### Testing performed at [address] [address] Hemoglobin (Bld) [Mass/Vol] 14.2 g/dL Normal 14.0-18.0 [facility] Comment on above: Performed By: #### U AKASH, UMAC #### Testing performed at [address] [place] [address] MCH (RBC) [Entitic mass] 32.0 pg Normal 26.0-35.0 [facility] Comment on above: Performed By: #### U AKASH, UMAC #### Testing performed at [address] [place] [address] MCHC (RBC) [Mass/Vol] 34.4 g/dL Normal 27.0-37.0 [facility] Comment on above: Performed By: #### U AKASH, UMAC #### Testing performed at [address] [address] MCV (RBC) [Entitic vol] 93.1 fL Normal 80.0-100.0 [facility] Comment on above: Performed By: #### U AKASH, UMAC #### Testing performed at [address] [address] Platelet mean volume (Bld) [Entitic vol] 9.7 fL Normal 7.4-11.0 [facility] Comment on above: Performed By: #### U AKASH, UMAC #### Testing performed at [address] [address] Platelets (Bld) [#/Vol] 130 10*3/uL Normal 130-400 [facility] Comment on above: Performed By: #### U AKASH, UMAC #### Testing performed at [address] [address] RBC (Bld) [#/Vol] 4.44 10*6/uL Normal 4.0-6.1 [facility] Comment on above: Performed By: #### U AKASH, UMAC #### Testing performed at [address] [address] WBC (Bld) [#/Vol] 13.6 10*3/uL High 3.6-11.0 [facility] Comment on above: Performed By: #### U AKASH, UMAC #### Testing performed at [address] [address] CBC, EDIF, PLATELETon 2024 ABSOLUTE BASOPHIL COUNT 0 10*3/uL 0.0 - 0.2 10*3/uL [facility] Basophils/100 WBC (Bld) 0.1 % 0.0 - 2.0 % [facility] Differential cell count method Nom (Bld) AUTO DIFF % [facility] Eosinophils (Bld) [#/Vol] 0 10*3/uL 0.0 - 0.7 10*3/uL [facility] Eosinophils/100 WBC (Bld) 0 % 0.0 - 11.0 % [facility] Erythrocyte distribution width (RBC) [Ratio] 14 % 11.5 - 14.5 % [facility] Hematocrit (Bld) [Volume fraction] 41.3 % Low 42.0 - 52.0 % [facility] Hemoglobin (Bld) [Mass/Vol] 14.2 g/dL [facility] Interpretation and review of laboratory results Abnormal [facility] Lymphocytes (Bld) [#/Vol] 0.2 10*3/uL Low 1.2 - 3.4 10*3/uL [facility] Lymphocytes/100 WBC (Bld) 1.5 % Low 20.0 - 55.0 % [facility] MCH (RBC) [Entitic mass] 32 pg 26.0 - 35.0 PG [facility] MCHC (RBC) [Mass/Vol] 34.4 g/dL [facility] MCV (RBC) [Entitic vol] 93.1 fL [facility] Monocytes (Bld) [#/Vol] 0.7 10*3/uL 0.0 - 0.7 10*3/uL [facility] Monocytes/100 WBC (Bld) 5.3 % 0.0 - 10.0 % [facility] Neutrophils (Bld) [#/Vol] 12.6 10*3/uL High 1.4 - 6.5 10*3/uL [facility] Neutrophils/100 WBC (Bld) 93.1 % High 37.0 - 75.0 % [facility] Platelet mean volume (Bld) [Entitic vol] 9.7 fL [facility] Platelets (Bld) [#/Vol] 130 10*3/uL 130 - 400 10*3/uL [facility] RBC (Bld) [#/Vol] 4.44 10*6/uL 4.0 - 6.1 10*6/uL [facility] WBC (Bld) [#/Vol] 13.6 10*3/uL High 3.6 - 11.0 10*3/uL [facility] CHEM 7 FASTINGon 07-30-2024 Chloride [Moles/Vol] 101 mmol/L Normal 98-107 [facility] Comment on above: Result Comment: Hailey rossi note: Triglyceride levels of 600mg/dL or higher may positively bias chloride results by approximately 2.1 mmol Performed By: #### U AKASH, UMAC #### Testing performed at [address] [address] CO2 [Moles/Vol] 34 mmol/L High 22-30 [facility] Comment on above: Performed By: #### U AKASH, UMAC #### Testing performed at [address] [address] Creatinine [Mass/Vol] 0.90 mg/dL Normal 0.70-1.20 [facility] Comment on above: Performed By: #### U AKASH, UMAC #### Testing performed at [address] [address] GFR Information Average GFR for 70+ years old = 75. Normal [facility] Comment on above: Result Comment: Cardiac Exercise Physiologist raul Kidney disease, GFR = <60. Kidney failure, GFR = <15. The GFR estimate is not adjusted for extreme body surface area or acute process, nor has it been validated for women or ethnic groups other than and . Performed By: #### U AKASH, UMAC #### Testing performed at [address] [address] GFR/1.73 sq M.predicted MDRD (S/P/Bld) [Vol rate/Area] 88 mL/min/{1.73_m2} Normal [facility] Comment on above: Performed By: #### U AKASH, UMAC #### Testing performed at [address] [address] Glucose [Mass/Vol] 157 mg/dL High 70-100 [facility] Comment on above: Result Comment: NORMAL <100 mg/dL PREDIABETES 101-126 mg/dL DIABETES 126 mg/dL or higher Performed By: #### U AKASH, UMAC #### Testing performed at [address] [address] Potassium [Moles/Vol] 3.8 mmol/L Normal 3.5-5.1 [facility] Comment on above: Performed By: #### U AKASH, UMAC #### Testing performed at [address] [address] Sodium [Moles/Vol] 145 mmol/L Normal 137-145 [facility] Comment on above: Performed By: #### U AKASH, UMAC #### Testing performed at [address] [address] Urea nitrogen [Mass/Vol] 31 mg/dL High 7-20 [facility] Comment on above: Performed By: #### U AKASH, UMAC #### Testing performed at [address] [address] CHEM 7 (LYTES,BUN,CREA,GLUC) on 07-30-2024 Chloride [Moles/Vol] 101 mmol/L [facility] Comment on above: Please note: Triglyc eride levels of 600mg/dL or higher may positively bias chloride results by approximately 2.1 mmol CO2 [Moles/Vol] 34 mmol/L [facility] Creatinine [Mass/Vol] 0.9 mg/dL 0.70 - 1.20 mg/dL [facility] GFR COMMENT Average GFR for 70+ years old = 75. [facility] Comment on above: Chronic Kidney disea se, GFR = <60. Kidney failure, GFR = <15. The GFR estimate is not adjusted for extreme body surface area or acute process, nor has it been validated for women or ethnic groups other than and . GFR/1.73 sq M.predicted MDRD (S/P/Bld) [Vol rate/Area] 88 mL/min/{1.73_m2} ml/min/1.73sq .m [facility] Glucose post fast [Mass/Vol] 157 mg/dL [facility] Comment on above: NORMAL <100 mg/dL PREDIABETES 101-126 mg/dL DIABETES 126 mg/dL or higher Interpretation and review of laboratory results Abnormal [facility] Potassium [Moles/Vol] 3.8 mmol/L [facility] Sodium [Moles/Vol] 145 mmol/L [facility] Urea nitrogen [Mass/Vol] 31 mg/dL High 7 - 20 mg/dL [facility] GLUCOSE (POC DEVICE)on 07-30 GLUCOSE, POINT OF CARE 136 [facility] Interpretation and review of laboratory results Abnormal [facility] Operator [id number] [facility] GLUCOSE, POINT OF CARE 144 [facility] Interpretation and review of laboratory results Abnormal [facility] Operator [id number] [facility] HEPATIC FUNCTION PANELon Albumin [Mass/Vol] 4.4 g/dL [facility] ALP [Catalytic activity/Vol] 108 U/L 38 - 126 U/L [facility] ALT [Catalytic activity/Vol] 35 U/L NINF - 50 U/L [facility] AST [Catalytic activity/Vol] 46 U/L 17 - 59 U/L [facility] Bilirubin [Mass/Vol] 1.1 mg/dL 0.2 - 1 .3 mg/dL [facility] Bilirubin.direct [Mass/Vol] 0 mg/dL [facility] Protein [Mass/Vol] 7.6 g/dL 6.3 - 8.2 g/dL [facility] INFLUENZA A AND B, PCRon FLUAV and FLUBV Ag IF Nom (Unsp spec) Negative NEGATIVE [facility] FLUBV Ag IA Ql (Unsp spec) Negative NEGATIVE [facility] Comment on above: TESTING PERFORMED BY [facility] LACTATE, BLOODon 07-30-2024 Lactate [Moles/Vol] 1.5 mmol/L 0.7 - 2. 0 mmol/L [facility] Interpretation and review of laboratory results Abnormal [facility] Lactate [Moles/Vol] 2.8 mmol/L Critically high 0.7 - 2.0 mmol/L [facility] Comment on above: PLEASE REPEAT INITIA L CRITICAL IN 3 HOURS IF ED OR INPATIENT SEPSIS PATIENT Result called to read back by: WILLIAM 07/30/2024 @ 08:12 by [facility] LACTATE,BLOODon 07-30-2024 Lactate [Moles/Vol] 1.5 mmol/L Normal 0.7-2.0 [facility] Comment on above: Performed By: #### M RSAST #### Testing performed at [address] [address] Lactate [Moles/Vol] 2.8 mmol/L Critically high 0.7-2.0 [facility] Comment on above: Result Comment: HAILEY ROSSI REPEAT INITIAL CRITICAL IN 3 HOURS IF ED OR INPATIENT SEPSIS PATIENT Result called to read back by: WILLIAM 07/30/2024 @ 08:12 by SRS Performed By: #### U AKASH, UMAC #### Testing performed at [address] [address] LIPID PANEL W CALCULATED LDL on 07-30-2024 Cholesterol [Mass/Vol] 191 mg/dL [facility] Cholesterol in HDL [Mass/Vol] 52 mg/dL [facility] Cholesterol in LDL [Mass/Vol] 121 mg/dL High NINF [facility] Cholesterol in VLDL [Mass/Vol] 18 mg/dL [facility] Cholesterol.total/Cho lesterol in HDL [Mass ratio] 3.67 {ratio} RATIO [facility] Comment on above: RISK TOTAL/HDL RATIO MEN WOMEN 1/2 AVERAGE 3.43 3.27 AVERAGE 4.97 4.44 2X AVERAGE 9.55 7.05 3X AVERAGE 23.99 11.04 Interpretation and review of laboratory results Abnormal [facility] Triglyceride [Mass/Vol] 90 mg/dL [facility] LIPID PROFILEon 07-30-2024 Cholesterol [Mass/Vol] 191 mg/dL Normal 120-200 [facility] Comment on above: Performed By: #### C OVID #### Testing performed at [address] [address] Cholesterol in HDL [Mass/Vol] 52 mg/dL Normal 26-63 [facility] Comment on above: Performed By: #### C OVID #### Testing performed at [address] [address] Cholesterol in LDL [Mass/Vol] 121 mg/dL High <100 [facility] Comment on above: Performed By: #### C OVID #### Testing performed at [address] [address] Cholesterol in VLDL [Mass/Vol] 18 mg/dL Normal 5-25 [facility] Comment on above: Performed By: #### C OVID #### Testing performed at [address] [address] Cholesterol.total/Cho lesterol in HDL [Mass ratio] 3.67 {ratio} Normal [facility] Comment on above: Result Comment: RISK TOTAL/HDL RATIO MEN WOMEN 1/2 AVERAGE 3.43 3.27 AVERAGE 4.97 4.44 2X AVERAGE 9.55 7.05 3X AVERAGE 23.99 11.04 Performed By: #### C OVID #### Testing performed at [address] [address] Triglyceride [Mass/Vol] 90 mg/dL Normal 0-150 [facility] Comment on above: Performed By: #### C OVID #### Testing performed at [address] [address] LIVER PANELon 07-30-2024 Albumin [Mass/Vol] 4.4 g/dL Normal 2.9-5.3 [facility] Comment on above: Performed By: #### U AKASH, UMAC #### Testing performed at [address] [address] ALP [Catalytic activity/Vol] 108 U/L Normal 38-126 [facility] Comment on above: Performed By: #### U AKASH, UMAC #### Testing performed at [address] [address] ALT [Catalytic activity/Vol] 35 U/L Normal <50 [facility] Comment on above: Performed By: #### U AKASH, UMAC #### Testing performed at [address] [address] AST [Catalytic activity/Vol] 46 U/L Normal 17-59 [facility] Comment on above: Performed By: #### U AKASH, UMAC #### Testing performed at [address] [address] Bilirubin [Mass/Vol] 1.1 mg/dL Normal 0.2-1.3 [facility] Comment on above: Performed By: #### U AKASH, UMAC #### Testing performed at [address] [address] Bilirubin.indirect [Mass/Vol] 0.0 mg/dL Normal 0.0-0.4 [facility] Comment on above: Performed By: #### U AKASH, UMAC #### Testing performed at [address] [address] Protein [Mass/Vol] 7.6 g/dL Normal 6.3-8.2 [facility] Comment on above: Performed By: #### U AKASH, UMAC #### Testing performed at [place] [id number] NOVEL CORONAVIRUSon 07-31-19 25 NARRATIVE This test was performed using isothermal ROBERTA for the qualitative detection of SARS-CoV-2 nucleic acid. Normal [facility] Comment on above: Performed By: #### C OVID #### Testing performed at [place] [id number] SARS-CoV-2 (COVID-19) RNA ROBERTA+probe Ql (Unsp spec) Not detected Normal NOT DETECTED [facility] Comment on above: Result Comment: Nega tive results do not preclude SARS-CoV-2 infection and should not be used as the sole basis for treatment or other patient management decisions. Optimum specimen types and timing for peak viral levels during infections caused by SARS-CoV-2 has not been determined. The possibility of a false negative result should especially be considered if the patient's recent exposures or clinical presentation suggest that SARS-CoV-2 infection is probable, and diagnostic tests for other causes of illness (e.g., other respiratory illness) are negative. Collection of a new specimen and re-testing may be necessary if the patient is critically ill or clinically deteriorating. Performed By: #### C OVID #### Testing performed at [place] [id number] NOVEL CORONAVIRUS LAB 1 - NA SOPHARYNGEALon 07-30-2024 SARS-CoV-2 (COVID-19) RNA ROBERTA+probe Ql (Unsp spec) Not detected NOT DETECTED [facility] Comment on above: Negative results do not preclude SARS-CoV-2 infection and should not be used as the sole basis for treatment or other patient management decisions. Optimum specimen types and timing for peak viral levels during infections caused by SARS-CoV-2 has not been determined. The possibility of a false negative result should especially be considered if the patient's recent exposures or clinical presentation suggest that SARS-CoV-2 infection is probable, and diagnostic tests for other causes of illness (e.g., other respiratory illness) are negative. Collection of a new specimen and re-testing may be necessary if the patient is critically ill or clinically deteriorating. SARS-CoV-2 (COVID-19) RNA ROBERTA+probe Ql (Unsp spec) This test was performed using isothermal ROBERTA for the qualitative detection of SARS-CoV-2 nucleic acid. [facility] No Panel Informationon 07-30 Interpretation and review of laboratory results Abnormal [facility] POCT GLUCOSEon 07-30-2024 Glucose [Mass/Vol] 136 mg/dL High 70-100 [facility] SCIENCE ANALYST [id number] Normal [facility] Glucose [Mass/Vol] 144 mg/dL High 70-100 [facility] SCIENCE ANALYST [id number] Normal [facility] PROTIMEon 07-30-2024 INR Coag (PPP) [Relative time] 1.26 {INR} High 0.85-1.10 [facility] Comment on above: Result Comment: 2.0-3.0 THERAPEUTIC RANGE 2.5-3.5 MECHANICAL VALVE RANGE Performed By: #### U AKASH, UMAC #### Testing performed at [address] [address] PT Coag (PPP) [Time] 16.0 s High 11.8-14.4 [facility] Comment on above: Performed By: #### U AKASH, UMAC #### Testing performed at [address] [address] PROTIME-INRon 07-30-2024 INR Coag (PPP) [Relative time] 1.26 {INR} High 0.85 - 1.10 [facility] Comment on above: 2.0-3.0 THERAPEUTIC RANGE 2.5-3.5 MECHANICAL VALVE RANGE Interpretation and review of laboratory results Abnormal [facility] PT Coag (PPP) [Time] 16 s High [facility] RAPID FLU Aon 07-30-2024 INFLUENZA A Negative Normal NEGATIVE [facility] Comment on above: Performed By: #### M RSAST #### Testing performed at [address] [address] INFLUENZA B Negative Normal NEGATIVE [facility] Comment on above: Result Comment: TEST ING PERFORMED BY ROBERTA Performed By: #### M RSAST #### Testing performed at [place] [id number] TROPONIN I, HIGH SENSITIVITY on 07-30-2024 Interpretation and review of laboratory results Abnormal [facility] TROPONIN I, HIGH SENSITIVITY 82 pg/mL High 0 - 20 pg/mL [facility] Comment on above: Indeterminant: >12 to 100 pg/mL female >20 to 100 pg/mL male Indicative of myocardial injury. Serial sampling is recommended, a change of greater than or equal to 20 pg/mL is indicative of acute coronary syndrome. [facility] TROPONIN I, HIGH SENSITIVITY 82 pg/mL High 0-20 [facility] Comment on above: Result Comment: Indeterminant: >12 to 100 pg/mL female >20 to 100 pg/mL male Indicative of myocardial injury. Serial sampling is recommended, a change of greater than or equal to 20 pg/mL is indicative of acute coronary syndrome. Performed By: #### C OVID #### [place] [address] Interpretation and review of laboratory results Abnormal [facility] TROPONIN I, HIGH SENSITIVITY 96 pg/mL High 0 - 20 pg/mL [facility] Comment on above: Indeterminant: >12 to 100 pg/mL female >20 to 100 pg/mL male Indicative of myocardial injury. Serial sampling is recommended, a change of greater than or equal to 20 pg/mL is indicative of acute coronary syndrome. [facility] TROPONIN I, HIGH SENSITIVITY 96 pg/mL High 0-20 [facility] Comment on above: Result Comment: Indeterminant: >12 to 100 pg/mL female >20 to 100 pg/mL male Indicative of myocardial injury. Serial sampling is recommended, a change of greater than or equal to 20 pg/mL is indicative of acute coronary syndrome. Performed By: #### C OVID #### [place] [address] Interpretation and review of laboratory results Abnormal [facility] TROPONIN I, HIGH SENSITIVITY 113 pg/mL Critically high 0 - 20 pg/mL [facility] Comment on above: Indeterminant: >12 to 100 pg/mL female >20 to 100 pg/mL male Indicative of myocardial injury. Serial sampling is recommended, a change of greater than or equal to 20 pg/mL is indicative of acute coronary syndrome. Result called to read back by: KATE SANCHEZ 07/30/2024 @ 10:19 by [facility] TROPONIN I, HIGH SENSITIVITY 113 pg/mL Critically high 0-20 [facility] Comment on above: Result Comment: Indeterminant: >12 to 100 pg/mL female >20 to 100 pg/mL male Indicative of myocardial injury. Serial sampling is recommended, a change of greater than or equal to 20 pg/mL is indicative of acute coronary syndrome. Result called to read back by: KATE SANCHEZ 07/30/2024 @ 10:19 by [facility] Performed By: #### C OVID #### Testing performed at [place] [id number] Interpretation and review of laboratory results Abnormal [facility] TROPONIN I, HIGH SENSITIVITY 120 pg/mL Critically high 0 - 20 pg/mL [facility] Comment on above: Indeterminant: >12 to 100 pg/mL female >20 to 100 pg/mL male Indicative of myocardial injury. Serial sampling is recommended, a change of greater than or equal to 20 pg/mL is indicative of acute coronary syndrome. Result called to and read back by: Aleida MATSON 07/30/2024 @ 08:47 by [facility] TROPONIN I, HIGH SENSITIVITY 120 pg/mL Critically high 0-20 [facility] Comment on above: Result Comment: Indeterminant: >12 to 100 pg/mL female >20 to 100 pg/mL male Indicative of myocardial injury. Serial sampling is recommended, a change of greater than or equal to 20 pg/mL is indicative of acute coronary syndrome. Result called to and read back by: Aleida MATSON 07/30/2024 @ 08:47 by [facility] Performed By: #### C OVID #### Testing performed at [place] [id number] URINALYSIS, MACROon 07-31-19 25 Bilirubin Ql (U) Negative NEGATIVE [facility] Clarity (U) CLEAR CLEAR [facility] Color (U) YELLOW YELLOW [facility] Glucose Test strip (U) [Mass/Vol] Negative NEGATIVE mg/dl [facility] Hemoglobin Ql (U) Negative NEGATIVE [facility] Ketones (U) [Mass/Vol] Negative NEGATIVE mg/dl [facility] Leukocyte esterase Test strip Ql (U) Negative NEGATIVE [facility] Nitrite Ql (U) Negative NEGATIVE [facility] pH (U) 7 [pH] 5.0 - 7.0 [facility] Protein Ql (U) 30 mg/dl Abnormal NEGATIVE [facility] Specific gravity (U) [Rel density] 1.015 1.010 - 1.025 [facility] Urobilinogen (U) [Mass/Vol] 0.2 mg/dL [facility] URINE MACROSCOPICon 07-31-19 25 Bilirubin Ql (U) Negative Normal NEGATIVE [facility] Comment on above: Performed By: #### U AKASH, UMAC #### Testing performed at [address] [address] Clarity (U) CLEAR Normal CLEAR [facility] Comment on above: Performed By: #### U AKASH, UMAC #### Testing performed at [address] [address] Color (U) YELLOW Normal YELLOW [facility] Comment on above: Performed By: #### U AKASH, UMAC #### Testing performed at [address] [address] Glucose Ql (U) Negative Normal NEGATIVE [facility] Comment on above: Performed By: #### U AKASH, UMAC #### Testing performed at [address] [address] pH (U) 7.0 [pH] Normal 5.0-7.0 [facility] Comment on above: Performed By: #### U AKASH, UMAC #### Testing performed at [address] [address] Protein (U) [Mass/Vol] 30 mg/dL Abnormal NEGATIVE [facility] Comment on above: Performed By: #### U AKASH, UMAC #### Testing performed at [address] [address] URINE HEMOGLOBIN Negative Normal NEGATIVE [facility] Comment on above: Performed By: #### U AKASH, UMAC #### Testing performed at [address] [address] URINE KETONE Negative Normal NEGATIVE [facility] Comment on above: Performed By: #### U AKASH, UMAC #### Testing performed at [address] [address] URINE LEUKOTEST Negative Normal NEGATIVE [facility] Comment on above: Performed By: #### U AKASH, UMAC #### Testing performed at [address] [place] [address] URINE NITRATES Negative Normal NEGATIVE [facility] Comment on above: Performed By: #### U AKASH, UMAC #### Testing performed at [address] [address] URINE SPEC GRAVITY 1.015 Normal 1.010-1.025 [facility] Comment on above: Performed By: #### U AKASH, UMAC #### Testing performed at [address] [address] Urobilinogen Qn (U) 0.2 {Bucky'U}/dL Normal 0.2-1.0 [facility] Comment on above: Performed By: #### U AKASH, UMAC #### Testing performed at [address] [address] URINE MICROSCOPICon 07-31-19 25 Bacteria LM.HPF (Urine sed) [#/Area] TRACE Abnormal NEGATIVE [facility] Casts LM.LPF (Urine sed) [#/Area] NONE NONE /LPF [facility] Crystals LM Nom (Urine sed) NONE NONE [facility] Epithelial cells LM Ql (Urine sed) NONE /HPF [facility] Mucus Ql (Urine sed) Negative NEGATIVE [facility] RBC LM.HPF (Urine sed) [#/Area] Negative NEGATIVE /HPF [facility] Urine sediment comments LM Kurtis (Urine sed) CULTURE CRITERIA NOT MET, NO CULTURE PERFORMED. [facility] WBC LM.HPF (Urine sed) [#/Area] 1 TO 5 NEGATIVE /HPF [facility] BACTERIA TRACE Abnormal NEGATIVE [facility] Comment on above: Performed By: #### U AKASH, UMAC #### Testing performed at [address] [address] CASTS NONE Normal NONE [facility] Comment on above: Performed By: #### U AKASH, UMAC #### Testing performed at [address] [address] CRYSTAL NONE Normal NONE [facility] Comment on above: Performed By: #### U AKASH, UMAC #### Testing performed at [address] [address] Epithelial cells LM Ql (Urine sed) NONE Normal [facility] Comment on above: Performed By: #### U AKASH, UMAC #### Testing performed at [address] [address] Mucus Ql (Urine sed) Negative Normal NEGATIVE [facility] Comment on above: Performed By: #### U AKASH, UMAC #### Testing performed at [address] [address] URINE COMMENT CULTURE CRITERIA NOT MET, NO CULTURE PERFORMED. Normal [facility] Comment on above: Performed By: #### U AKASH, UMAC #### Testing performed at [address] [address] URINE RBC'S Negative Normal NEGATIVE [facility] Comment on above: Performed By: #### U AKASH, UMAC #### Testing performed at [address] [address] URINE WBC'S 1 TO 5 Normal NEGATIVE [facility] Comment on above: Performed By: #### U AKASH, UMAC #### Testing performed at [address] [address] [facility] 06-13-202 5 APPROVED REPORT Other Information Study Quality: Adequate. Technically limited study due to inability to position patient. Conclusion Hyperdynamic echocardiogram, EF>80% normal wall motion normal RV function EXAM: Limited 2D, Doppler, and color-flow Echocardiogram Imaging system used: [employer] 2D Dimensions IVSd 1.1 cm M: 0.6-1.0 LVEF (Miramontes's) 75.26 % M: 52 - 72 PWd 1.0 cm M: 0.6 - 1.0 EF AP4-a2DQ 78.49 % LVDd 4.5 cm M: 4.2 - 5.8 EF AP2-a2DQ 72.43 % LVDs 2.75 cm M: 2.5 - 4.0 EF BP-a2DQ 75.26 % Left Atrium 2.89 cm M: 3.0 - 4.0 LVESV 21 mL LVEDV 84.14 mL M: 62 - 150 LV Volume Index 41.86 mL/m2 M: 34 - 74 CARDIOLOGY Mainor Villarreal DO - 07/30/2024 APPROVED REPORT Other Information Study Quality: Adequate. Technically limited study due to inability to position patient. Conclusion Hyperdynamic echocardiogram, EF>80% normal wall motion normal RV function EXAM: Limited 2D, Doppler, and color-flow Echocardiogram Imaging system used: [employer] 2D Dimensions IVSd 1.1 cm M: 0.6-1.0LVEF (Miramontes's)75.26 % M: 52 - 72 PWd 1.0 cm M: 0.6 - 1.0EF AP4-a2DQ78.49 % LVDd 4.5 cm M: 4.2 - 5.8EF AP2-a2DQ72.43 % LVDs 2.75 cm M: 2.5 - 4.0EF BP-a2DQ75.26 % Left Atrium 2.89 cm M: 3.0 - [id number] mL LVEDV84.14 mL M: 62 - 150 LV Volume Index41.86 mL/m2 M: 34 - 74 [facility] Radiology Study observation (narrative) [facility] US Heart limitedOrdered By: Mainor Villarreal on 07-30-2024 [facility] Work Phone: XR CHEST PA AND LATERAL 2 EWSon 07-30-2024 XR CHEST PA AND LATERAL 2 VIEWS EXAM: XR CHEST PA AND LATERAL 2 VIEWS HISTORY: dyspnea COMPARISON: Chest radiograph dated 06/14/2023. TECHNIQUE: AP and lateral views of the chest performed. FINDINGS: The trachea is unremarkable. The cardiac mediastinal silhouette and hilar shadows are stable and unremarkable. There is no consolidation, pleural effusion or pulmonary vascular congestion. There is no pneumothorax or acute osseous abnormality. The bony structures are osteopenic and there are paravertebral ossifications along the lower thoracic spine. IMPRESSION: There is no acute cardiopulmonary process. Normal [facility] XR Chest PA and Lateralon IMPRESSION: There is no acute cardiopulmonary process. RADIOLOGY EXAM: XR CHEST PA AN D LATERAL 2 VIEWS HISTORY: dyspnea COMPARISON: Chest radiograph dated 06/14/2023. TECHNIQUE: AP and lateral views of the chest performed. FINDINGS: The trachea is unremarkable. The cardiac mediastinal silhouette and hilar shadows are stable and unremarkable. There is no consolidation, pleural effusion or pulmonary vascular congestion. There is no pneumothorax or acute osseous abnormality. The bony structures are osteopenic and there are paravertebral ossifications along the lower thoracic spine. RADIOLOGY Deangelo Love MD - 07/30/2024 EXAM: XR CHEST PA AND LATERAL 2 VIEWS HISTORY: dyspnea COMPARISON: Chest radiograph dated 06/14/2023. TECHNIQUE: AP and lateral views of the chest performed. FINDINGS: The trachea is unremarkable. The cardiac mediastinal silhouette and hilar shadows are stable and unremarkable. There is no consolidation, pleural effusion or pulmonary vascular congestion. There is no pneumothorax or acute osseous abnormality. The bony structures are osteopenic and there are paravertebral ossifications along the lower thoracic spine. IMPRESSION IMPRESSION: There is no acute cardiopulmonary process. [facility] Radiology Study observation (narrative) [facility] XR Chest PA and LateralOrder ed By: Deangelo Love on 07-30-2024 [facility] Work Phone: XR CHEST AP/PA AND LATon XR CHEST AP/PA AND LAT EXAMINATION: XR CHEST AP/PA AND LAT HISTORY: ORDERING SYSTEM PROVIDED HISTORY: worsening cough, SOB recent hospital admission for PNA, TECHNOLOGIST PROVIDED HISTORY: Illness/Other Reason for exam: f/u weakness Cancer History: tongue cancer Surgery, RadiationHistory: yes Encounter Type: Initial Additional signs and symptoms: n ORDERING SYSTEM PROVIDED DIAGNOSIS CODES: J18.9 Pneumonia of both lower lobes due to infectious organism R05.9 Cough, unspecified type COMPARISON: 06/07/2024 FINDINGS: Two-view chest x-ray. No pneumothorax, pleural effusion or focal airspace consolidation. Heart is normal in size. Bony thorax is unremarkable. IMPRESSION: No acute cardiopulmonary process. Workstation ID: [id number] Dictated by: LALA AVALOS on FriJuly 14, 2024 7:08:34 PM EDT Transcribed by: LALA AVALOS on FriJuly 14, 2024 7:08:34 PM EDT Finalized by: LALA AVALOS on FriJuly 14, 2024 7:08:34 PM EDT [facility] Comment on above: Order Comment: Injur y/Trauma or Illness?:Illness/OtherHow long have you had these symptoms (acute/chronic)?:AcuteReason for exam?:f/u weaknessHistory of cancer?:tongue cancerSurgeries, chemotherapy, or radiation?:yesType of Exam?:InitialAdditional signs and symptoms?:n XR Chest PA and Lateral and AP lateral-decubituson 07-14-2024 No acute cardiopulmonary process. Workstation ID: [id number] [employer] EXAMINATION: XR CHEST AP/PA AND LAT HISTORY: ORDERING SYSTEM PROVIDED HISTORY: worsening cough, SOB recent hospital admission for PNA, TECHNOLOGIST PROVIDED HISTORY: Illness/Other Reason for exam: f/u weakness Cancer History: tongue cancer Surgery, RadiationHistory: yes Encounter Type: Initial Additional signs and symptoms: n ORDERING SYSTEM PROVIDED DIAGNOSIS CODES: J18.9 Pneumonia of both lower lobes due to infectious organism R05.9 Cough, unspecified type COMPARISON: 06/07/2024 FINDINGS: Two-view chest x-ray. No pneumothorax, pleural effusion or focal airspace consolidation. Heart is normal in size. Bony thorax is unremarkable. [facility] Lala Avalos MD - 07/14/2024 EXAMINATION: XR CHEST AP/PA AND LAT HISTORY: ORDERING SYSTEM PROVIDED HISTORY: worsening cough, SOB recent hospital admission for PNA, TECHNOLOGIST PROVIDED HISTORY: Illness/Other Reason for exam: f/u weakness Cancer History: tongue cancer Surgery, RadiationHistory: yes Encounter Type: Initial Additional signs and symptoms: n ORDERING SYSTEM PROVIDED DIAGNOSIS CODES: J18.9 Pneumonia of both lower lobes due to infectious organism R05.9 Cough, unspecified type COMPARISON: 06/07/2024 FINDINGS: Two-view chest x-ray. No pneumothorax, pleural effusion or focal airspace consolidation. Heart is normal in size. Bony thorax is unremarkable. IMPRESSION: No acute cardiopulmonary process. Workstation ID: [id number] [facility] Radiology Study observation (narrative) [facility] XR Chest PA and Lateral and AP lateral-decubitusOrdered By: Lala Avalos on 07-14-2024 [facility] Work Phone: FUNGITELLon 07-09-2024 CLINICAL RELEVANCE Notes [facility] Comment on above: Result Comment: (NOT E) The Fungitell test is indicated for presumptive diagnosis of fungal infection and should be used in conjunction with other diagnostic procedures. The test detects glucan from the following pathogens: Prerna spp., Acremonium, Aspergillus spp., Coccidioides immitis, Fusarium spp., Histoplasma capsulatum, Trichosporon spp., Sporothrix schenckii, Saccharomyces cerevisiae, and Pneumocystis jiroveci. This test does not detect certain fungal species such as Cryptococcus, which produce very low levels of (1,3)-qkot-Z-wdksub. This test will not detect the zygomycetes, such as Absidia, Blastomyces, Mucor, and Rhizopus, which are not known to produce (1,3)-ecml-Z-cbclmd. In addition, the yeast phase of Blastomyces dermatitidis produces little (1,3)-vznh-U-rsifyb and may not be detected by the assay. Performed By: #### L RACHID #### [place] [address] DISCLAIMER Notes [facility] Comment on above: Result Comment: (NOT E) This test was developed and its performance characteristics determined by [facility]. It has not been cleared or approved by the [place] Food and Drug Administration. This laboratory is certified under the Clinical Laboratory Improvement Amendments (CLIA) and licensed by the [facility] as qualified to perform high complexity clinical laboratory testing. Performed By: #### L RACHID #### Testing performed at [place] [id number] ELECTRONICALLY SIGNED BY Comment [facility] Comment on above: Result Comment: Jared Constantino Performed By: #### L RACHID #### [place] [address] FUNGITELL VALUE <31.25 [facility] Comment on above: Result Comment: REFE RENCE RANGE: Negative: <60, Positive: >/=60 Unit: pg/mL Performed By: #### L RACHID #### Testing performed at [address] [address] INTERPRETATION Notes Normal [facility] Comment on above: Result Comment: (NOT E) (1,3) Crcj-T-Gdezvb was NOT DETECTED in the sample. Reasons for negative results could include the patient being in the early stage of infection before detectable levels of (1,3) Kiru-N-Bkomjk are present. Clinical diagnosis should be made in the context of the patient's complete medical history. Performed By: #### L RACHID #### Testing performed at [address] [address] REFERENCE VALUE Comment Normal [facility] Comment on above: Result Comment: Nega tive: <60, Positive: >/=60 Performed By: #### L RACHID #### Testing performed at [address] [address] RESULT Negative Normal [facility] Comment on above: Performed By: #### L RACHID #### Testing performed at [address] [address] C REACTIVE PROTEINon 025 CRP [Mass/Vol] MG/L 0 - 10 MG/L [facility] CRP [Mass/Vol] mg/L Normal 0-10 [facility] Comment on above: Performed By: #### U AKASH, UMAC #### Testing performed at [address] [address] CBCon 07-06-2024 ABSOLUTE BAS 0.0 10*3/uL Normal 0.0-0.2 [facility] Comment on above: Performed By: #### U AKASH, UMAC #### Testing performed at [address] [address] ABSOLUTE EOS 0.0 10*3/uL Normal 0.0-0.7 [facility] Comment on above: Performed By: #### U AKASH, UMAC #### Testing performed at [address] [address] ABSOLUTE NEUTROPHIL COUNT 9.1 10*3/uL High 1.4-6.5 [facility] Comment on above: Performed By: #### U AKASH, UMAC #### Testing performed at [address] [place] [address] Basophils/100 WBC (Bld) 0.1 % Normal 0.0-2.0 [facility] Comment on above: Performed By: #### U AKASH, UMAC #### Testing performed at [address] [place] [address] DTYPE AUTO DIFF Normal [facility] Comment on above: Performed By: #### U AKASH, UMAC #### Testing performed at [address] [address] Eosinophils/100 WBC (Bld) 0.0 % Normal 0.0-11.0 [facility] Comment on above: Performed By: #### U AKASH, UMAC #### Testing performed at [address] [address] Lymphocytes (Bld) [#/Vol] 0.2 10*3/uL Low 1.2-3.4 [facility] Comment on above: Performed By: #### U AKASH, UMAC #### Testing performed at [address] [place] [address] Lymphocytes/100 WBC (Bld) 2.2 % Low 20.0-55.0 [facility] Comment on above: Performed By: #### U AKASH, UMAC #### Testing performed at [address] [address] Monocytes (Bld) [#/Vol] 0.3 10*3/uL Normal 0.0-0.7 [facility] Comment on above: Performed By: #### U AKASH, UMAC #### Testing performed at [address] [address] Monocytes/100 WBC (Bld) 3.3 % Normal 0.0-10.0 [facility] Comment on above: Performed By: #### U AKASH, UMAC #### Testing performed at [address] [address] Neutrophils/100 WBC (Bld) 94.4 % High 37.0-75.0 [facility] Comment on above: Performed By: #### U AKASH, UMAC #### Testing performed at [address] [place] [address] Erythrocyte distribution width (RBC) [Ratio] 13.8 % Normal 11.5-14.5 [facility] Comment on above: Performed By: #### U AKASH, UMAC #### Testing performed at [address] [address] Hematocrit (Bld) [Volume fraction] 38.5 % Low 42.0-52.0 [facility] Comment on above: Performed By: #### U AKASH, UMAC #### Testing performed at [address] [address] Hemoglobin (Bld) [Mass/Vol] 12.8 g/dL Low 14.0-18.0 [facility] Comment on above: Performed By: #### U AKASH, UMAC #### Testing performed at [address] [address] MCH (RBC) [Entitic mass] 31.4 pg Normal 26.0-35.0 [facility] Comment on above: Performed By: #### U AKASH, UMAC #### Testing performed at [address] [address] MCHC (RBC) [Mass/Vol] 33.2 g/dL Normal 27.0-37.0 [facility] Comment on above: Performed By: #### U AKASH, UMAC #### Testing performed at [address] [address] MCV (RBC) [Entitic vol] 94.8 fL Normal 80.0-100.0 [facility] Comment on above: Performed By: #### U AKASH, UMAC #### Testing performed at [address] [address] Platelet mean volume (Bld) [Entitic vol] 10.5 fL Normal 7.4-11.0 [facility] Comment on above: Performed By: #### U AKASH, UMAC #### Testing performed at [address] [address] Platelets (Bld) [#/Vol] 124 10*3/uL Low 130-400 [facility] Comment on above: Performed By: #### U AKASH, UMAC #### Testing performed at [address] [address] RBC (Bld) [#/Vol] 4.06 10*6/uL Normal 4.0-6.1 [facility] Comment on above: Performed By: #### U AKASH, UMAC #### Testing performed at [address] [address] WBC (Bld) [#/Vol] 9.7 10*3/uL Normal 3.6-11.0 [facility] Comment on above: Performed By: #### U AKASH, UMAC #### Testing performed at [address] [address] CBC, EDIF, PLATELETon 2024 ABSOLUTE BASOPHIL COUNT 0 10*3/uL 0.0 - 0.2 10*3/uL [facility] Basophils/100 WBC (Bld) 0.1 % 0.0 - 2.0 % [facility] Differential cell count method Nom (Bld) AUTO DIFF % [facility] Eosinophils (Bld) [#/Vol] 0 10*3/uL 0.0 - 0.7 10*3/uL [facility] Eosinophils/100 WBC (Bld) 0 % 0.0 - 11.0 % [facility] Erythrocyte distribution width (RBC) [Ratio] 13.8 % 11.5 - 14.5 % [facility] Hematocrit (Bld) [Volume fraction] 38.5 % Low 42.0 - 52.0 % [facility] Hemoglobin (Bld) [Mass/Vol] 12.8 g/dL Low [facility] Interpretation and review of laboratory results Abnormal [facility] Lymphocytes (Bld) [#/Vol] 0.2 10*3/uL Low 1.2 - 3.4 10*3/uL [facility] Lymphocytes/100 WBC (Bld) 2.2 % Low 20.0 - 55.0 % [facility] MCH (RBC) [Entitic mass] 31.4 pg 26.0 - 35.0 PG [facility] MCHC (RBC) [Mass/Vol] 33.2 g/dL [facility] MCV (RBC) [Entitic vol] 94.8 fL [facility] Monocytes (Bld) [#/Vol] 0.3 10*3/uL 0.0 - 0.7 10*3/uL [facility] Monocytes/100 WBC (Bld) 3.3 % 0.0 - 10.0 % [facility] Neutrophils (Bld) [#/Vol] 9.1 10*3/uL High 1.4 - 6.5 10*3/uL [facility] Neutrophils/100 WBC (Bld) 94.4 % High 37.0 - 75.0 % [facility] Platelet mean volume (Bld) [Entitic vol] 10.5 fL [facility] Platelets (Bld) [#/Vol] 124 10*3/uL Low 130 - 400 10*3/uL [facility] RBC (Bld) [#/Vol] 4.06 10*6/uL 4.0 - 6.1 10*6/uL [facility] WBC (Bld) [#/Vol] 9.7 10*3/uL 3.6 - 11.0 10*3/uL [facility] CMP FASTINGon 07-06-2024 A:G RATIO 1.3 RATIO Normal [facility] Comment on above: Performed By: #### U AKASH, UMAC #### Testing performed at [address] [address] ALBUMIN 3.6 G/dl Normal 3.5-5.0 [facility] Comment on above: Performed By: #### U AKASH, UMAC #### Testing performed at [address] [address] ALP [Catalytic activity/Vol] 78 U/L Normal 38-126 [facility] Comment on above: Performed By: #### U AKASH, UMAC #### Testing performed at [address] [address] ALT [Catalytic activity/Vol] 23 U/L Normal <50 [facility] Comment on above: Performed By: #### U AKASH, UMAC #### Testing performed at [address] [address] AST [Catalytic activity/Vol] 27 U/L Normal 17-59 [facility] Comment on above: Performed By: #### U AKASH, UMAC #### Testing performed at [facility] [facility] [address] [place] [address] Bilirubin [Mass/Vol] 0.4 mg/dL Normal 0.2-1.3 [facility] Comment on above: Performed By: #### U AKASH, UMAC #### Testing performed at [address] [address] Calcium [Mass/Vol] 9.0 mg/dL Normal 8.4-10.2 [facility] Comment on above: Performed By: #### U AKASH, UMAC #### Testing performed at [address] [address] Chloride [Moles/Vol] 107 mmol/L Normal 98-107 [facility] Comment on above: Result Comment: Hailey rossi note: Triglyceride levels of 600mg/dL or higher may positively bias chloride results by approximately 2.1 mmol Performed By: #### U AKASH, UMAC #### Testing performed at [address] [address] CO2 [Moles/Vol] 30 mmol/L Normal 22-30 [facility] Comment on above: Performed By: #### U AKASH, UMAC #### Testing performed at [address] [address] Creatinine [Mass/Vol] 0.63 mg/dL Low 0.70-1.20 [facility] Comment on above: Performed By: #### U AKASH, UMAC #### Testing performed at [address] [address] EST. GFR, 161 ml/min/1.73sq.m [facility] Comment on above: Performed By: #### U AKASH, UMAC #### Testing performed at [address] [address] EST. GFR,Non 133 ml/min/1.73sq.m [facility] Comment on above: Performed By: #### U AKASH, UMAC #### Testing performed at [address] [address] GFR Information Average GFR for 70+ years old = 75. Normal [facility] Comment on above: Result Comment: Cardiac Exercise Physiologist raul Kidney disease, GFR = <60. Kidney failure, GFR = <15. The GFR estimate is not adjusted for extreme body surface area or acute process, nor has it been validated for women or ethnic groups other than and . Performed By: #### U AKASH, UMAC #### Testing performed at [address] [address] Glucose [Mass/Vol] 177 mg/dL High 70-100 [facility] Comment on above: Result Comment: NORMAL <100 mg/dL PREDIABETES 101-126 mg/dL DIABETES 126 mg/dL or higher Performed By: #### U AKASH, UMAC #### Testing performed at [address] [address] Potassium [Moles/Vol] 4.2 mmol/L Normal 3.5-5.1 [facility] Comment on above: Performed By: #### U AKASH, UMAC #### Testing performed at [address] [address] Protein [Mass/Vol] 6.3 g/dL Normal 6.3-8.2 [facility] Comment on above: Performed By: #### U AKASH, UMAC #### Testing performed at [address] [address] Sodium [Moles/Vol] 145 mmol/L Normal 137-145 [facility] Comment on above: Performed By: #### U AKASH, UMAC #### Testing performed at [address] [address] Urea nitrogen [Mass/Vol] 35 mg/dL High 7-20 [facility] Comment on above: Performed By: #### U AKASH, UMAC #### Testing performed at [address] [address] COMPREHENSIVE METABOLIC PANE Pj 07-06-2024 Albumin [Mass/Vol] 3.6 G/dl 3.5 - 5.0 G/dl [facility] Albumin/Globulin [Mass ratio] 1.3 {ratio} RATIO [facility] ALP [Catalytic activity/Vol] 78 U/L [facility] ALT [Catalytic activity/Vol] 23 U/L NINF [facility] AST [Catalytic activity/Vol] 27 U/L [facility] Bilirubin [Mass/Vol] 0.4 mg/dL [facility] Calcium [Mass/Vol] 9 mg/dL [facility] Chloride [Moles/Vol] 107 mmol/L [facility] Comment on above: Please note: Triglyc eride levels of 600mg/dL or higher may positively bias chloride results by approximately 2.1 mmol CO2 [Moles/Vol] 30 mmol/L [facility] Creatinine [Mass/Vol] 0.63 mg/dL Low [facility] GFR COMMENT Average GFR for 70+ years old = 75. [facility] Comment on above: Chronic Kidney disea se, GFR = <60. Kidney failure, GFR = <15. The GFR estimate is not adjusted for extreme body surface area or acute process, nor has it been validated for women or ethnic groups other than and . GFR/1.73 sq M.predicted among blacks MDRD (S/P/Bld) [Vol rate/Area] 161 mL/min/{1.73_m2} ml/min/1.73sq .m [facility] GFR/1.73 sq M.predicted among non-blacks MDRD (S/P/Bld) [Vol rate/Area] 133 mL/min/{1.73_m2} ml/min/1.73sq .m [facility] Glucose post fast [Mass/Vol] 177 mg/dL High [facility] Comment on above: NORMAL <100 mg/dL PREDIABETES 101-126 mg/dL DIABETES 126 mg/dL or higher Interpretation and review of laboratory results Abnormal [facility] Potassium [Moles/Vol] 4.2 mmol/L [facility] Protein [Mass/Vol] 6.3 g/dL [facility] Sodium [Moles/Vol] 145 mmol/L [facility] Urea nitrogen [Mass/Vol] 35 mg/dL High [facility] ESRon 07-06-2024 ESR (Bld) [Velocity] 13 mm/h Normal 0-20 [facility] Comment on above: Performed By: #### U AKASH, UMAC #### Testing performed at [address] [place] [address] LIPID PANEL W CALCULATED LDL on 07-06-2024 Cholesterol [Mass/Vol] 150 mg/dL MG/DL [facility] Cholesterol in HDL [Mass/Vol] 43 mg/dL [facility] Cholesterol in LDL [Mass/Vol] 80 mg/dL NINF [facility] Cholesterol in VLDL [Mass/Vol] 27 mg/dL High [facility] Cholesterol.total/Cho lesterol in HDL [Mass ratio] 3.49 {ratio} RATIO [facility] Comment on above: RISK TOTAL/HDL RATIO MEN WOMEN 1/2 AVERAGE 3.43 3.27 AVERAGE 4.97 4.44 2X AVERAGE 9.55 7.05 3X AVERAGE 23.99 11.04 Interpretation and review of laboratory results Abnormal [facility] Triglyceride [Mass/Vol] 135 mg/dL [facility] LIPID PROFILEon 07-06-2024 Cholesterol [Mass/Vol] 150 mg/dL Normal [facility] Comment on above: Performed By: #### C OVID #### Testing performed at [address] [address] Cholesterol in HDL [Mass/Vol] 43 mg/dL Normal 26-63 [facility] Comment on above: Performed By: #### C OVID #### Testing performed at [address] [address] Cholesterol in LDL [Mass/Vol] 80 mg/dL Normal <100 [facility] Comment on above: Performed By: #### C OVID #### Testing performed at [address] [address] Cholesterol in VLDL [Mass/Vol] 27 mg/dL High 5-25 [facility] Comment on above: Performed By: #### C OVID #### Testing performed at [address] [address] Cholesterol.total/Cho lesterol in HDL [Mass ratio] 3.49 {ratio} Normal [facility] Comment on above: Result Comment: RISK TOTAL/HDL RATIO MEN WOMEN 1/2 AVERAGE 3.43 3.27 AVERAGE 4.97 4.44 2X AVERAGE 9.55 7.05 3X AVERAGE 23.99 11.04 Performed By: #### C OVID #### Testing performed at [address] [address] Triglyceride [Mass/Vol] 135 mg/dL Normal 0-150 [facility] Comment on above: Performed By: #### C OVID #### Testing performed at [address] [address] MAGNESIUMon 07-06-2024 Magnesium [Mass/Vol] 2.1 mg/dL [facility] Magnesium [Mass/Vol] 2.1 mg/dL Normal 1.6-2.3 [facility] Comment on above: Performed By: #### L RACHID #### Testing performed at [address] [address] No Panel Informationon 07-06 [facility] SEDIMENTATION RATE, AUTOMATE Don 07-06-2024 ESR (Bld) [Velocity] 13 mm/h [facility] VANCOMYCIN LEVEL, TROUGH (CT E DRUG LEVEL)on 07-06-2024 Vancomycin trough [Mass/Vol] 19.8 ug/mL [facility] VANCOMYCIN TROUGHon 07-07-19 VANCOMYCIN TROUGH 19.8 UG/ML Normal 15.0-20.0 [facility] Comment on above: Performed By: #### L RACHID #### Testing performed at [address] [address] C REACTIVE PROTEINon 025 CRP [Mass/Vol] 6.8 mg/L 0 - 10 MG/L [facility] CRP [Mass/Vol] 6.8 mg/L Normal 0-10 [facility] Comment on above: Performed By: #### U AKASH, UMAC #### Testing performed at [address] [address] CBCon 07-05-2024 ABSOLUTE BAS 0.0 10*3/uL Normal 0.0-0.2 [facility] Comment on above: Performed By: #### U AKASH, UMAC #### Testing performed at [address] [address] ABSOLUTE EOS 0.0 10*3/uL Normal 0.0-0.7 [facility] Comment on above: Performed By: #### U AKASH, UMAC #### Testing performed at [address] [address] ABSOLUTE NEUTROPHIL COUNT 7.8 10*3/uL High 1.4-6.5 [facility] Comment on above: Performed By: #### U AKASH, UMAC #### Testing performed at [address] [place] [address] Basophils/100 WBC (Bld) 0.3 % Normal 0.0-2.0 [facility] Comment on above: Performed By: #### U AKASH, UMAC #### Testing performed at [address] [place] [address] DTYPE AUTO DIFF Normal [facility] Comment on above: Performed By: #### U AKASH, UMAC #### Testing performed at [address] [place] [address] Eosinophils/100 WBC (Bld) 0.0 % Normal 0.0-11.0 [facility] Comment on above: Performed By: #### U AKASH, UMAC #### Testing performed at [address] [address] Lymphocytes (Bld) [#/Vol] 0.2 10*3/uL Low 1.2-3.4 [facility] Comment on above: Performed By: #### U AKASH, UMAC #### Testing performed at [address] [place] [address] Lymphocytes/100 WBC (Bld) 2.2 % Low 20.0-55.0 [facility] Comment on above: Performed By: #### U AKASH, UMAC #### Testing performed at [address] [address] Monocytes (Bld) [#/Vol] 0.1 10*3/uL Normal 0.0-0.7 [facility] Comment on above: Performed By: #### U AKASH, UMAC #### Testing performed at [address] [place] [address] Monocytes/100 WBC (Bld) 1.4 % Normal 0.0-10.0 [facility] Comment on above: Performed By: #### U AKASH, UMAC #### Testing performed at [address] [place] [address] Neutrophils/100 WBC (Bld) 96.1 % High 37.0-75.0 [facility] Comment on above: Performed By: #### U AKASH, UMAC #### Testing performed at [address] [address] Erythrocyte distribution width (RBC) [Ratio] 13.9 % Normal 11.5-14.5 [facility] Comment on above: Performed By: #### U AKASH, UMAC #### Testing performed at [address] [address] Hematocrit (Bld) [Volume fraction] 39.4 % Low 42.0-52.0 [facility] Comment on above: Performed By: #### U AKASH, UMAC #### Testing performed at [address] [address] Hemoglobin (Bld) [Mass/Vol] 12.9 g/dL Low 14.0-18.0 [facility] Comment on above: Performed By: #### U AKASH, UMAC #### Testing performed at [address] [address] MCH (RBC) [Entitic mass] 31.3 pg Normal 26.0-35.0 [facility] Comment on above: Performed By: #### U AKASH, UMAC #### Testing performed at [address] [address] MCHC (RBC) [Mass/Vol] 32.8 g/dL Normal 27.0-37.0 [facility] Comment on above: Performed By: #### U AKASH, UMAC #### Testing performed at [address] [address] MCV (RBC) [Entitic vol] 95.4 fL Normal 80.0-100.0 [facility] Comment on above: Performed By: #### U AKASH, UMAC #### Testing performed at [address] [address] Platelet mean volume (Bld) [Entitic vol] 10.6 fL Normal 7.4-11.0 [facility] Comment on above: Performed By: #### U AKASH, UMAC #### Testing performed at [address] [address] Platelets (Bld) [#/Vol] 128 10*3/uL Low 130-400 [facility] Comment on above: Performed By: #### U AKASH, UMAC #### Testing performed at [address] [place] [address] RBC (Bld) [#/Vol] 4.13 10*6/uL Normal 4.0-6.1 [facility] Comment on above: Performed By: #### U AKASH, UMAC #### Testing performed at [address] [place] [address] WBC (Bld) [#/Vol] 8.1 10*3/uL Normal 3.6-11.0 [facility] Comment on above: Performed By: #### U AKASH, UMAC #### Testing performed at [address] [place] [address] CBC, EDIF, PLATELETon 2024 ABSOLUTE BASOPHIL COUNT 0 10*3/uL 0.0 - 0.2 10*3/uL [facility] Basophils/100 WBC (Bld) 0.3 % 0.0 - 2.0 % [facility] Differential cell count method Nom (Bld) AUTO DIFF % [facility] Eosinophils (Bld) [#/Vol] 0 10*3/uL 0.0 - 0.7 10*3/uL [facility] Eosinophils/100 WBC (Bld) 0 % 0.0 - 11.0 % [facility] Erythrocyte distribution width (RBC) [Ratio] 13.9 % 11.5 - 14.5 % [facility] Hematocrit (Bld) [Volume fraction] 39.4 % Low 42.0 - 52.0 % [facility] Hemoglobin (Bld) [Mass/Vol] 12.9 g/dL Low [facility] Interpretation and review of laboratory results Abnormal [facility] Lymphocytes (Bld) [#/Vol] 0.2 10*3/uL Low 1.2 - 3.4 10*3/uL [facility] Lymphocytes/100 WBC (Bld) 2.2 % Low 20.0 - 55.0 % [facility] MCH (RBC) [Entitic mass] 31.3 pg 26.0 - 35.0 PG [facility] MCHC (RBC) [Mass/Vol] 32.8 g/dL [facility] MCV (RBC) [Entitic vol] 95.4 fL [facility] Monocytes (Bld) [#/Vol] 0.1 10*3/uL 0.0 - 0.7 10*3/uL [facility] Monocytes/100 WBC (Bld) 1.4 % 0.0 - 10.0 % [facility] Neutrophils (Bld) [#/Vol] 7.8 10*3/uL High 1.4 - 6.5 10*3/uL [facility] Neutrophils/100 WBC (Bld) 96.1 % High 37.0 - 75.0 % [facility] Platelet mean volume (Bld) [Entitic vol] 10.6 fL [facility] Platelets (Bld) [#/Vol] 128 10*3/uL Low 130 - 400 10*3/uL [facility] RBC (Bld) [#/Vol] 4.13 10*6/uL 4.0 - 6.1 10*6/uL [facility] WBC (Bld) [#/Vol] 8.1 10*3/uL 3.6 - 11.0 10*3/uL [facility] CMP FASTINGon 07-05-2024 A:G RATIO 1.3 RATIO Normal [facility] Comment on above: Performed By: #### U AKASH, UMAC #### Testing performed at [address] [address] ALBUMIN 3.7 G/dl Normal 3.5-5.0 [facility] Comment on above: Performed By: #### U AKASH, UMAC #### Testing performed at [address] [address] ALP [Catalytic activity/Vol] 76 U/L Normal 38-126 [facility] Comment on above: Performed By: #### U AKASH, UMAC #### Testing performed at [address] [address] ALT [Catalytic activity/Vol] 31 U/L Normal <50 [facility] Comment on above: Performed By: #### U AKASH, UMAC #### Testing performed at [address] [address] AST [Catalytic activity/Vol] 35 U/L Normal 17-59 [facility] Comment on above: Performed By: #### U AKASH, UMAC #### Testing performed at [address] [address] Bilirubin [Mass/Vol] 0.4 mg/dL Normal 0.2-1.3 [facility] Comment on above: Performed By: #### U AKASH, UMAC #### Testing performed at [address] [address] Calcium [Mass/Vol] 9.2 mg/dL Normal 8.4-10.2 [facility] Comment on above: Performed By: #### U AKASH, UMAC #### Testing performed at [address] [address] Chloride [Moles/Vol] 107 mmol/L Normal 98-107 [facility] Comment on above: Result Comment: Hailey rossi note: Triglyceride levels of 600mg/dL or higher may positively bias chloride results by approximately 2.1 mmol Performed By: #### U AKASH, UMAC #### Testing performed at [address] [address] CO2 [Moles/Vol] 30 mmol/L Normal 22-30 [facility] Comment on above: Performed By: #### U AKASH, UMAC #### Testing performed at [address] [address] Creatinine [Mass/Vol] 0.69 mg/dL Low 0.70-1.20 [facility] Comment on above: Performed By: #### U AKASH, UMAC #### Testing performed at [address] [address] EST. GFR, 145 ml/min/1.73sq.m [facility] Comment on above: Performed By: #### U AKASH, UMAC #### Testing performed at [address] [address] EST. GFR,Non 119 ml/min/1.73sq.m [facility] Comment on above: Performed By: #### U AKASH, UMAC #### Testing performed at [address] [address] GFR Information Average GFR for 70+ years old = 75. Normal [facility] Comment on above: Result Comment: Cardiac Exercise Physiologist raul Kidney disease, GFR = <60. Kidney failure, GFR = <15. The GFR estimate is not adjusted for extreme body surface area or acute process, nor has it been validated for women or ethnic groups other than and . Performed By: #### U AKASH, UMAC #### Testing performed at [address] [address] Glucose [Mass/Vol] 242 mg/dL High 70-100 [facility] Comment on above: Result Comment: NORMAL <100 mg/dL PREDIABETES 101-126 mg/dL DIABETES 126 mg/dL or higher Performed By: #### U AKASH, UMAC #### Testing performed at [address] [address] Potassium [Moles/Vol] 3.9 mmol/L Normal 3.5-5.1 [facility] Comment on above: Performed By: #### U AKASH, UMAC #### Testing performed at [address] [address] Protein [Mass/Vol] 6.6 g/dL Normal 6.3-8.2 [facility] Comment on above: Performed By: #### U AKASH, UMAC #### Testing performed at [address] [address] Sodium [Moles/Vol] 149 mmol/L High 137-145 [facility] Comment on above: Performed By: #### U AKASH, UMAC #### Testing performed at [address] [address] Urea nitrogen [Mass/Vol] 40 mg/dL High 7-20 [facility] Comment on above: Performed By: #### U AKASH, UMAC #### Testing performed at [address] [address] COMPREHENSIVE METABOLIC PANE Pj 07-05-2024 Albumin [Mass/Vol] 3.7 G/dl 3.5 - 5.0 G/dl [facility] Albumin/Globulin [Mass ratio] 1.3 {ratio} RATIO [facility] ALP [Catalytic activity/Vol] 76 U/L [facility] ALT [Catalytic activity/Vol] 31 U/L NINF [facility] AST [Catalytic activity/Vol] 35 U/L [facility] Bilirubin [Mass/Vol] 0.4 mg/dL [facility] Calcium [Mass/Vol] 9.2 mg/dL [facility] Chloride [Moles/Vol] 107 mmol/L [facility] Comment on above: Please note: Triglyc eride levels of 600mg/dL or higher may positively bias chloride results by approximately 2.1 mmol CO2 [Moles/Vol] 30 mmol/L [facility] Creatinine [Mass/Vol] 0.69 mg/dL Low [facility] GFR COMMENT Average GFR for 70+ years old = 75. [facility] Comment on above: Chronic Kidney disea se, GFR = <60. Kidney failure, GFR = <15. The GFR estimate is not adjusted for extreme body surface area or acute process, nor has it been validated for women or ethnic groups other than and . GFR/1.73 sq M.predicted among blacks MDRD (S/P/Bld) [Vol rate/Area] 145 mL/min/{1.73_m2} ml/min/1.73sq .m [facility] GFR/1.73 sq M.predicted among non-blacks MDRD (S/P/Bld) [Vol rate/Area] 119 mL/min/{1.73_m2} ml/min/1.73sq .m [facility] Glucose post fast [Mass/Vol] 242 mg/dL High [facility] Comment on above: NORMAL <100 mg/dL PREDIABETES 101-126 mg/dL DIABETES 126 mg/dL or higher Interpretation and review of laboratory results Abnormal [facility] Potassium [Moles/Vol] 3.9 mmol/L [facility] Protein [Mass/Vol] 6.6 g/dL [facility] Sodium [Moles/Vol] 149 mmol/L High [facility] Urea nitrogen [Mass/Vol] 40 mg/dL [facility] ESRon 07-05-2024 ESR (Bld) [Velocity] 17 mm/h Normal 0-20 [facility] Comment on above: Performed By: #### U AKASH, UMAC #### Testing performed at [address] [address] MAGNESIUMon 07-05-2024 Magnesium [Mass/Vol] 2.1 mg/dL [facility] Magnesium [Mass/Vol] 2.1 mg/dL Normal 1.6-2.3 [facility] Comment on above: Performed By: #### U [facility] #### Testing performed at [place] [id number] No Panel Informationon 07-05 [facility] SEDIMENTATION RATE, AUTOMATE Don 07-05-2024 ESR (Bld) [Velocity] 17 mm/h [facility] TROPONIN I, HIGH SENSITIVITY on 07-05-2024 TROPONIN I, HIGH SENSITIVITY 20 pg/mL 0 - 20 pg/mL [facility] Comment on above: Indeterminant: >12 to 100 pg/mL female >20 to 100 pg/mL male Indicative of myocardial injury. Serial sampling is recommended, a change of greater than or equal to 20 pg/mL is indicative of acute coronary syndrome. [facility] TROPONIN I, HIGH SENSITIVITY 20 pg/mL Normal 0-20 [facility] Comment on above: Result Comment: Indeterminant: >12 to 100 pg/mL female >20 to 100 pg/mL male Indicative of myocardial injury. Serial sampling is recommended, a change of greater than or equal to 20 pg/mL is indicative of acute coronary syndrome. Performed By: #### C OVID #### Testing performed at [address] [address] ADDENDUM APPROVED REPORT Other Information Study Quality: Adequate Conclusion Limited echocardiogram Normal RV/LV size and function ejection fraction 65-70%. Grade 1 diastolic dysfunction Normal atrial sizes Incidental atrial septal aneurysm noted usually benign finding. Possible PFO by color flow. No significant valvular or pericardial abnormality No pulmonary hypertension Echocardiogram similar to that of 12/2023. EXAM: Limited 2D, Doppler, and color-flow Echocardiogram Imaging system used: [employer] 2D Dimensions IVSd 1.1 cm M: 0.6-1.0 LVEF (Miramontes's) 64.79 % M: 52 - 72 PWd 1.1 cm M: 0.6 - 1.0 EF AP4-a2DQ 58.27 % LVDd 4.4 cm M: 4.2 - 5.8 EF AP2-a2DQ 69.98 % LVDs 2.65 cm M: 2.5 - 4.0 EF BP-a2DQ 64.79 % Aortic Root 3.15 cm M: 3.1 - 3.7 LVESV 38 mL Aortic Root Index 1.5 cm/m2 LVEDV 107.50 mL M: 62 - 150 Left Atrium 3.25 cm M: 3.0 - 4.0 LV Volume Index 51.68 mL/m2 M: 34 - 74 LVOT 2.02 cm (M/F) 1.5-2.5 LA Volume 41.4 mL IVC 0.9 cm LA Volume Index 19.90 mL/m2 (M/F) 16-34 Right Atrium 5.3 cm (M/F) 2.9-4.5 Aortic Valve LVOT Max 1.28 (0.7-1.1 m/s) LVOT VTI 27.26 cm LVOT Peak GR 6.57 mmHg LVOT Mean GR 3.52 mmHg AV DI 0.71 (>0.25) AoV Peak Julien. 1.76 (0.5-1.3 m/s) AV Vmean 1.24 m/s AO Peak GR. 12.63 mmHg AO Mean GR. 6.95 (<5 mmHg) AO VTI 38.6 (18-25 cm) MANISHA (VTI) 2.27 (2.5-4.5 cm2) Tricuspid Valve RAP Estimate 3 mmHg CARDIOLOGY Amy Bassett, DO - 07/05/2024 ADDENDUM APPROVED REPORT Other Information Study Quality: Adequate Conclusion Limited echocardiogram Normal RV/LV size and function ejection fraction 65-70%. Grade 1 diastolic dysfunction Normal atrial sizes Incidental atrial septal aneurysm noted usually benign finding. Possible PFO by color flow. No significant valvular or pericardial abnormality No pulmonary hypertension Echocardiogram similar to that of 12/2023. EXAM: Limited 2D, Doppler, and color-flow Echocardiogram Imaging system used: [employer] 2D Dim[employer] IVSd 1.1 cm M: 0.6-1.0LVEF (Miramontes's)64.79 % M: 52 - 72 PWd 1.1 cm M: 0.6 - 1.0EF AP4-a2DQ58.27 % LVDd 4.4 cm M: 4.2 - 5.8EF AP2-a2DQ69.98 % LVDs 2.65 cm M: 2.5 - 4.0EF BP-a2DQ64.79 % Aortic Root 3.15 cm M: 3.1 - 3.7PXFNV76 mL Aortic Root Index1.5 cm/d0JRGSZ944.50 mL M: 62 - 150 Left Atrium 3.25 cm M: 3.0 - 4.0LV Volume Index51.68 mL/m2 M: 34 - 74 LVOT2.02 cm (M/F) 1.5-2.5LA Hptzue02.4 mL IVC0.9 cmLA Volume Index19.90 mL/m2 (M/F) 16-34 Right Atrium 5.3 cm (M/F) 2.9-4.5 Aortic Valve LVOT Max1.28 (0.7-1.1 m/s)LVOT VTI27.26 cm LVOT Peak GR6.57 mmHgLVOT Mean GR3.52 mmHg AV DI0.71 (>0.25)AoV Peak Julien.1.76 (0.5-1.3 m/s) AV Vmean 1.24 m/Estephania Peak GR.12.63 mmHg AO Mean GR.6.95 (<5 mmHg)AO VTI38.6 (18-25 cm) MANISHA (VTI)2.27 (2.5-4.5 cm2) Tricuspid Valve RAP Estimate3 mmHg [facility] Radiology Study observation (narrative) [facility] US Heart limitedOrdered By: Amy Bassett on 07-05-2024 [facility] Work Phone: VANCOMYCIN LEVEL, TROUGH (CT E DRUG LEVEL)on 07-05-2024 Interpretation and review of laboratory results Abnormal [facility] Vancomycin trough [Mass/Vol] 14.6 ug/mL Low [facility] VANCOMYCIN TROUGHon 07-06-19 25 VANCOMYCIN TROUGH 14.6 UG/ML Low 15.0-20.0 [facility] [facility] Comment on above: Performed By: #### L RACHID #### [place] [address] 25 0H VITAMIN D LEVELon 06-17 25 0H VITAMIN D LEVEL 47.5 NG/ML Normal [facility] Comment on above: Result Comment: DEFICIENT <20 NG/ML INSUFFICIENT 20-<30 NG/ML SUFFICIENT 30-100 NG/ML POTENTIAL TOXICITY >100 NG/ML Performed By: #### U AKASH, UMAC #### Testing performed at [address] [address] B TYPE NATRIURETIC PEPTIDEon 07-04-2024 Natriuretic peptide B (Bld) [Mass/Vol] 61 pg/mL Normal [facility] Comment on above: Performed By: #### L RACHID #### Testing performed at [address] [address] B-TYPE NATRIURETIC PEPTIDE ( BRAIN)on 07-04-2024 Natriuretic peptide B (Bld) [Mass/Vol] 61 pg/mL [facility] BLOOD CULTUREon 07-04-2024 Bacteria identified Cx Nom (Bld) SPECIMEN DESCRIPTION PERIPHERAL BLOOD DRAW SPECIAL REQUESTS LEFT AC CULTURE NO GROWTH 5 DAYS REPORT STATUS 07/09/2024 * Result Note: FINAL * Normal [facility] Comment on above: Performed By: #### B LC #### Testing performed at [address] [address] Bacteria identified Cx Nom (Bld) SPECIMEN DESCRIPTION PERIPHERAL BLOOD DRAW SPECIAL REQUESTS RIGHT AC CULTURE NO GROWTH 5 DAYS REPORT STATUS 07/09/2024 * Result Note: FINAL * Normal [facility] Comment on above: Performed By: #### U AKASH, UMAC #### Testing performed at [address] [address] C REACTIVE PROTEINon 025 CRP [Mass/Vol] 5.4 mg/L 0 - 10 MG/L [facility] CRP [Mass/Vol] 5.4 mg/L Normal 0-10 [facility] Comment on above: Performed By: #### L RACHID #### Testing performed at [address] [place] [address] CBCon 07-04-2024 ABSOLUTE BAS 0.0 10*3/uL Normal 0.0-0.2 [facility] Comment on above: Performed By: #### L RACHID #### Testing performed at [address] [address] ABSOLUTE EOS 0.1 10*3/uL Normal 0.0-0.7 [facility] Comment on above: Performed By: #### L RACHID #### Testing performed at [address] [address] ABSOLUTE NEUTROPHIL COUNT 5.3 10*3/uL Normal 1.4-6.5 [facility] Comment on above: Performed By: #### L RACHID #### Testing performed at [address] [address] Basophils/100 WBC (Bld) 0.4 % Normal 0.0-2.0 [facility] Comment on above: Performed By: #### L RACHID #### Testing performed at [address] [address] DTYPE AUTO DIFF Normal [facility] Comment on above: Performed By: #### L RACHID #### Testing performed at [address] [address] Eosinophils/100 WBC (Bld) 0.8 % Normal 0.0-11.0 [facility] Comment on above: Performed By: #### L RACHID #### Testing performed at [address] [address] Lymphocytes (Bld) [#/Vol] 0.5 10*3/uL Low 1.2-3.4 [facility] Comment on above: Performed By: #### L RACHID #### Testing performed at [address] [address] Lymphocytes/100 WBC (Bld) 7.8 % Low 20.0-55.0 [facility] Comment on above: Performed By: #### L RACHID #### Testing performed at [address] [address] Monocytes (Bld) [#/Vol] 0.6 10*3/uL Normal 0.0-0.7 [facility] Comment on above: Performed By: #### L RACHID #### Testing performed at [address] [address] Monocytes/100 WBC (Bld) 9.4 % Normal 0.0-10.0 [facility] Comment on above: Performed By: #### L RACHID #### Testing performed at [address] [address] Neutrophils/100 WBC (Bld) 81.6 % High 37.0-75.0 [facility] Comment on above: Performed By: #### L RACHID #### Testing performed at [address] [address] Erythrocyte distribution width (RBC) [Ratio] 14.0 % Normal 11.5-14.5 [facility] Comment on above: Performed By: #### L RACHID #### Testing performed at [address] [address] Hematocrit (Bld) [Volume fraction] 47.7 % Normal 42.0-52.0 [facility] Comment on above: Performed By: #### L RACHID #### Testing performed at [address] [address] Hemoglobin (Bld) [Mass/Vol] 15.7 g/dL Normal 14.0-18.0 [facility] Comment on above: Performed By: #### L RACHID #### Testing performed at [address] [address] MCH (RBC) [Entitic mass] 31.0 pg Normal 26.0-35.0 [facility] Comment on above: Performed By: #### L RACHID #### Testing performed at [address] [address] MCHC (RBC) [Mass/Vol] 33.0 g/dL Normal 27.0-37.0 [facility] Comment on above: Performed By: #### L RACHID #### Testing performed at [address] [address] MCV (RBC) [Entitic vol] 94.1 fL Normal 80.0-100.0 [facility] Comment on above: Performed By: #### L RACHID #### Testing performed at [address] [address] Platelet mean volume (Bld) [Entitic vol] 9.9 fL Normal 7.4-11.0 [facility] Comment on above: Performed By: #### L RACHID #### Testing performed at [address] [place] [address] Platelets (Bld) [#/Vol] 160 10*3/uL Normal 130-400 [facility] Comment on above: Performed By: #### L RACHID #### Testing performed at [address] [address] RBC (Bld) [#/Vol] 5.07 10*6/uL Normal 4.0-6.1 [facility] Comment on above: Performed By: #### L RACHID #### Testing performed at [address] [address] WBC (Bld) [#/Vol] 6.5 10*3/uL Normal 3.6-11.0 [facility] Comment on above: Performed By: #### L RACHID #### Testing performed at [address] [address] CBC, EDIF, PLATELETon 2024 ABSOLUTE BASOPHIL COUNT 0 10*3/uL 0.0 - 0.2 10*3/uL [facility] Basophils/100 WBC (Bld) 0.4 % 0.0 - 2.0 % [facility] Differential cell count method Nom (Bld) AUTO DIFF % [facility] Eosinophils (Bld) [#/Vol] 0.1 10*3/uL 0.0 - 0.7 10*3/uL [facility] Eosinophils/100 WBC (Bld) 0.8 % 0.0 - 11.0 % [facility] Erythrocyte distribution width (RBC) [Ratio] 14 % 11.5 - 14.5 % [facility] Hematocrit (Bld) [Volume fraction] 47.7 % 42.0 - 52.0 % [facility] Hemoglobin (Bld) [Mass/Vol] 15.7 g/dL [facility] Interpretation and review of laboratory results Abnormal [facility] Lymphocytes (Bld) [#/Vol] 0.5 10*3/uL Low 1.2 - 3.4 10*3/uL [facility] Lymphocytes/100 WBC (Bld) 7.8 % Low 20.0 - 55.0 % [facility] MCH (RBC) [Entitic mass] 31 pg 26.0 - 35.0 PG [facility] MCHC (RBC) [Mass/Vol] 33 g/dL [facility] MCV (RBC) [Entitic vol] 94.1 fL [facility] Monocytes (Bld) [#/Vol] 0.6 10*3/uL 0.0 - 0.7 10*3/uL [facility] Monocytes/100 WBC (Bld) 9.4 % 0.0 - 10.0 % [facility] Neutrophils (Bld) [#/Vol] 5.3 10*3/uL 1.4 - 6.5 10*3/uL [facility] Neutrophils/100 WBC (Bld) 81.6 % High 37.0 - 75.0 % [facility] Platelet mean volume (Bld) [Entitic vol] 9.9 fL [facility] Platelets (Bld) [#/Vol] 160 10*3/uL 130 - 400 10*3/uL [facility] RBC (Bld) [#/Vol] 5.07 10*6/uL 4.0 - 6.1 10*6/uL [facility] WBC (Bld) [#/Vol] 6.5 10*3/uL 3.6 - 11.0 10*3/uL [facility] CHEM 7 FASTINGon 07-04-2024 Chloride [Moles/Vol] 106 mmol/L Normal 98-107 [facility] Comment on above: Result Comment: Hailey rossi note: Triglyceride levels of 600mg/dL or higher may positively bias chloride results by approximately 2.1 mmol Performed By: #### L RACHID #### Testing performed at [address] [address] CO2 [Moles/Vol] 36 mmol/L High 22-30 [facility] Comment on above: Performed By: #### L RACHID #### Testing performed at [address] [address] Creatinine [Mass/Vol] 0.79 mg/dL Normal 0.70-1.20 [facility] Comment on above: Performed By: #### L RACHID #### Testing performed at [address] [address] EST. GFR, 124 ml/min/1.73sq.m Normal [facility] Comment on above: Performed By: #### L RACHID #### Testing performed at [address] [address] EST. GFR,Non 102 ml/min/1.73sq.m [facility] Comment on above: Performed By: #### L RACHID #### Testing performed at [address] [address] GFR Information Average GFR for 70+ years old = 75. Normal [facility] Comment on above: Result Comment: Cardiac Exercise Physiologist raul Kidney disease, GFR = <60. Kidney failure, GFR = <15. The GFR estimate is not adjusted for extreme body surface area or acute process, nor has it been validated for women or ethnic groups other than and . Performed By: #### L RACHID #### Testing performed at [address] [address] Glucose [Mass/Vol] 124 mg/dL High 70-100 [facility] Comment on above: Result Comment: NORMAL <100 mg/dL PREDIABETES 101-126 mg/dL DIABETES 126 mg/dL or higher Performed By: #### L RACHID #### Testing performed at [address] [address] Potassium [Moles/Vol] 3.9 mmol/L Normal 3.5-5.1 [facility] Comment on above: Performed By: #### L RACHID #### Testing performed at [address] [address] Sodium [Moles/Vol] 154 mmol/L High 137-145 [facility] Comment on above: Performed By: #### L RACHID #### Testing performed at [address] [address] Urea nitrogen [Mass/Vol] 40 mg/dL High 7-20 [facility] Comment on above: Performed By: #### L RACHID #### Testing performed at [address] [address] CHEM 7 (LYTES,BUN,CREA,GLUC) on 07-04-2024 Chloride [Moles/Vol] 106 mmol/L [facility] [address] [employer] [facility] Comment on above: Please note: Triglyc eride levels of 600mg/dL or higher may positively bias chloride results by approximately 2.1 mmol CO2 [Moles/Vol] 36 mmol/L High [facility] Creatinine [Mass/Vol] 0.79 mg/dL [facility] [address] [employer] [facility] GFR COMMENT Average GFR for 70+ years old = 75. [facility] Comment on above: Chronic Kidney disea se, GFR = <60. Kidney failure, GFR = <15. The GFR estimate is not adjusted for extreme body surface area or acute process, nor has it been validated for women or ethnic groups other than and . GFR/1.73 sq M.predicted among blacks MDRD (S/P/Bld) [Vol rate/Area] 124 mL/min/{1.73_m2} ml/min/1.73sq .m [facility] GFR/1.73 sq M.predicted among non-blacks MDRD (S/P/Bld) [Vol rate/Area] 102 mL/min/{1.73_m2} ml/min/1.73sq .m [facility] [address] [employer] [facility] Glucose post fast [Mass/Vol] 124 mg/dL High [facility] Comment on above: NORMAL <100 mg/dL PREDIABETES 101-126 mg/dL DIABETES 126 mg/dL or higher Interpretation and review of laboratory results Abnormal [facility] [address] [employer] [facility] Potassium [Moles/Vol] 3.9 mmol/L [facility] Sodium [Moles/Vol] 154 mmol/L High [facility] Urea nitrogen [Mass/Vol] 40 mg/dL High [facility] CT CHEST WITHOUT CONTRASTon 07-04-2024 CT CHEST WITHOUT CONTRAST EXAMINATION: CT CHEST WITHOUT CONTRAST HISTORY: cough and congestion with hist of aspiration COMPARISON: CT chest 04/01/2024 TECHNIQUE: Multi-planar CT images were obtained without and/or with IV contrast as indicated by examination type. Axial, Coronal, and Sagittal images. Dose reduction techniques were achieved by using automated exposure control and/or adjustment of mA and/or kV according to patient size and/or use of iterative reconstruction technique. FINDINGS: LUNGS: Mild emphysematous changes. Bronchiectasis within right lower lobe. Multiple irregular patchy and slightly spiculated opacities within left lower lobe. Mild groundglass patchy opacities within right lower lobe. PLEURA: No mass, effusion, or pneumothorax. VASCULATURE: No abnormality. MEGA: No mass or adenopathy. MEDIASTINUM: Air-filled well distended esophagus throughout its length, but no appreciable fluid, wall thickening, or mass. No mediastinal mass or adenopathy. CARDIAC: No enlargement or pericardial thickening.. Coronary artery calcifications: AORTA: No aneurysm or dissection. CHEST WALL: No mass or axillary adenopathy. BONES: No bone lesion or fracture. LIMITED ABDOMEN: PEG tube within the stomach without appreciable abnormality. Suspect aneurysmal dilation of the distal abdominal aorta below the level of imaging. Limited images of the upper abdomen. OTHER: Negative. IMPRESSION: 1. Multifocal infiltrates bilaterally suggestive of pneumonia. Findings within left lung could represent neoplasm, however, there is been notable change since 04/01/2024 with some previously seen lesions no longer present, and multiple new lesions suggesting this represents changing pattern of pneumonia. Consider follow-up CT chest in 2 months to document clearing. 2. Chronic mild emphysematous changes and bronchiectasis. Normal [facility] CT Chest WO contraston 07-04 IMPRESSION: 1. Multifocal infiltrates bilaterally suggestive of pneumonia. Findings within left lung could represent neoplasm, however, there is been notable change since 04/01/2024 with some previously seen lesions no longer present, and multiple new lesions suggesting this represents changing pattern of pneumonia. Consider follow-up CT chest in 2 months to document clearing. 2. Chronic mild emphysematous changes and bronchiectasis. RADIOLOGY EXAMINATION: CT CHES T WITHOUT CONTRAST HISTORY: cough and congestion with hist of aspiration COMPARISON: CT chest 04/01/2024 TECHNIQUE: Multi-planar CT images were obtained without and/or with IV contrast as indicated by examination type. Axial, Coronal, and Sagittal images. Dose reduction techniques were achieved by using automated exposure control and/or adjustment of mA and/or kV according to patient size and/or use of iterative reconstruction technique. FINDINGS: LUNGS: Mild emphysematous changes. Bronchiectasis within right lower lobe. Multiple irregular patchy and slightly spiculated opacities within left lower lobe. Mild groundglass patchy opacities within right lower lobe. PLEURA: No mass, effusion, or pneumothorax. VASCULATURE: No abnormality. MEGA: No mass or adenopathy. MEDIASTINUM: Air-filled well distended esophagus throughout its length, but no appreciable fluid, wall thickening, or mass. No mediastinal mass or adenopathy. CARDIAC: No enlargement or pericardial thickening.. Coronary artery calcifications: AORTA: No aneurysm or dissection. CHEST WALL: No mass or axillary adenopathy. BONES: No bone lesion or fracture. LIMITED ABDOMEN: PEG tube within the stomach without appreciable abnormality. Suspect aneurysmal dilation of the distal abdominal aorta below the level of imaging. Limited images of the upper abdomen. OTHER: Negative. RADIOLOGY Ralf Hallman MD - 07/04/2024 EXAMINATION: CT CHEST WITHOUT CONTRAST HISTORY: cough and congestion with hist of aspiration COMPARISON: CT chest 04/01/2024 TECHNIQUE: Multi-planar CT images were obtained without and/or with IV contrast as indicated by examination type. Axial, Coronal, and Sagittal images. Dose reduction techniques were achieved by using automated exposure control and/or adjustment of mA and/or kV according to patient size and/or use of iterative reconstruction technique. FINDINGS: LUNGS: Mild emphysematous changes. Bronchiectasis within right lower lobe. Multiple irregular patchy and slightly spiculated opacities within left lower lobe. Mild groundglass patchy opacities within right lower lobe. PLEURA: No mass, effusion, or pneumothorax. VASCULATURE: No abnormality. MEGA: No mass or adenopathy. MEDIASTINUM: Air-filled well distended esophagus throughout its length, but no appreciable fluid, wall thickening, or mass. No mediastinal mass or adenopathy. CARDIAC: No enlargement or pericardial thickening.. Coronary artery calcifications: AORTA: No aneurysm or dissection. CHEST WALL: No mass or axillary adenopathy. BONES: No bone lesion or fracture. LIMITED ABDOMEN: PEG tube within the stomach without appreciable abnormality. Suspect aneurysmal dilation of the distal abdominal aorta below the level of imaging. Limited images of the upper abdomen. OTHER: Negative. IMPRESSION IMPRESSION: 1. Multifocal infiltrates bilaterally suggestive of pneumonia. Findings within left lung could represent neoplasm, however, there is been notable change since 04/01/2024 with some previously seen lesions no longer present, and multiple new lesions suggesting this represents changing pattern of pneumonia. Consider follow-up CT chest in 2 months to document clearing. 2. Chronic mild emphysematous changes and bronchiectasis. [facility] Radiology Study observation (narrative) [facility] CT Chest WO contrastOrdered By: Ralf Hallman on 07-04-2024 [facility] Work Phone: ESRon 07-04-2024 ESR (Bld) [Velocity] 31 mm/h High 0-20 [facility] Comment on above: Performed By: #### L RACHID #### Testing performed at [address] [address] L PNEUMOPHILIA AG URINEon L PNEUMOPHILIA AG URINE Negative Normal NEGATIVE [facility] Comment on above: Result Comment: TEST ING PERFORMED BY DIRECT AG TESTING Performed By: #### M RSAST #### Testing performed at [address] [address] LEGIONELLA URINARY AGon 06-17 L. pneumophila 1 Ag IA Ql (U) Negative NEGATIVE [facility] Comment on above: TESTING PERFORMED BY DIRECT AG TESTING MRSA SCREENon 07-04-2024 MRSA DNA ROBERTA+probe Ql (Unsp spec) Negative Normal NEGATIVE [facility] Comment on above: Performed By: #### M RSAST #### Testing performed at [address] [address] STAPH AUREUS SCREEN Negative Normal NEGATIVE [facility] Comment on above: Result Comment: TEST ING PERFORMED BY PCR Performed By: #### M RSAST #### Testing performed at [address] [address] No Panel Informationon 07-04 [facility] PROCALCITONINon 07-04-2024 PROCALCITONIN 0.07 ng/mL 0.00 - 0.25 ng/mL [facility] Comment on above: PCT Interpretation Less than 0.10 ng/mL, antibiotic therapy strongly discouraged. 0.10-0.25 ng/mL, antibiotic therapy discouraged. 0.25-0.50 ng/mL, antibiotic therapy encouraged. Greater than 0.50 ng/mL, antibiotic therapy strongly encouraged. PROCALCITONIN 0.07 ng/mL Normal 0.00-0.25 [facility] Comment on above: Result Comment: PCT Interpretation Less than 0.10 ng/mL, antibiotic therapy strongly discouraged. 0.10-0.25 ng/mL, antibiotic therapy discouraged. 0.25-0.50 ng/mL, antibiotic therapy encouraged. Greater than 0.50 ng/mL, antibiotic therapy strongly encouraged. Performed By: #### U AKASH, UMAC #### Testing performed at [address] [place] [address] RESPIRATORY CULTUREon 2024 RESPIRATORY CULTURE SPECIMEN DESCRIPTION SPUTUM GRAM SMEAR SPECIMEN IS OF UNACCEPTABLE QUALITY, PLEASE RESUBMIT. * Result Note: YEAST * CULTURE SPECIMEN IS UNACCEPTABLE FOR CULTURE. TEST HAS BEEN CREDITED. * Result Note: SPECIMEN REJECTED BY LAB, PLEASE RECOLLECT * * Result Note: CALLED TO AND READ BACK BY * * Result Note: CAIT ON 07/05/24 AT 0742 BY ARNULFO * REPORT STATUS PENDING Normal [facility] Comment on above: Performed By: #### B LC #### Testing performed at [address] [address] S PNEUMONIAE AG URINEon 06-17 S PNEUMONIAE AG URINE Negative Normal NEGATIVE [facility] Comment on above: Result Comment: TEST ING PERFORMED BY DIRECT AG TESTING Performed By: #### M RSAST #### Testing performed at [address] [address] SCREEN: MRSA ONLY, NARES (IS OLATION SCREEN)on 07-04-2024 MRSA isol Org specific cx Ql (Nose) Negative NEGATIVE [facility] STAPHYOCOCCUS AUREUS BY PCR Negative NEGATIVE [facility] Comment on above: TESTING PERFORMED BY PCR [facility] SEDIMENTATION RATE, AUTOMATE Don 07-04-2024 ESR (Bld) [Velocity] 31 mm/h High [facility] [address] [employer] [facility] Interpretation and review of laboratory results Abnormal [facility] STREP PNEUMONIAE ANTIGEN, UR INEon 07-04-2024 S. pneumoniae Ag Ql (U) Negative NEGATIVE [facility] Comment on above: TESTING PERFORMED BY DIRECT AG TESTING TROPONIN I, HIGH SENSITIVITY on 07-04-2024 Interpretation and review of laboratory results Abnormal [facility] TROPONIN I, HIGH SENSITIVITY 44 pg/mL High 0 - 20 pg/mL [facility] Comment on above: Indeterminant: >12 to 100 pg/mL female >20 to 100 pg/mL male Indicative of myocardial injury. Serial sampling is recommended, a change of greater than or equal to 20 pg/mL is indicative of acute coronary syndrome. [facility] TROPONIN I, HIGH SENSITIVITY 44 pg/mL High 0-20 [facility] Comment on above: Result Comment: Indeterminant: >12 to 100 pg/mL female >20 to 100 pg/mL male Indicative of myocardial injury. Serial sampling is recommended, a change of greater than or equal to 20 pg/mL is indicative of acute coronary syndrome. Performed By: #### M RSAST #### Testing performed at [place] [id number] Interpretation and review of laboratory results Abnormal [facility] TROPONIN I, HIGH SENSITIVITY 34 pg/mL High 0 - 20 pg/mL [facility] Comment on above: Indeterminant: >12 to 100 pg/mL female >20 to 100 pg/mL male Indicative of myocardial injury. Serial sampling is recommended, a change of greater than or equal to 20 pg/mL is indicative of acute coronary syndrome. [facility] TROPONIN I, HIGH SENSITIVITY 34 pg/mL High 0-20 [facility] Comment on above: Result Comment: Indeterminant: >12 to 100 pg/mL female >20 to 100 pg/mL male Indicative of myocardial injury. Serial sampling is recommended, a change of greater than or equal to 20 pg/mL is indicative of acute coronary syndrome. Performed By: #### M RSAST #### [place] [address] Interpretation and review of laboratory results Abnormal [facility] TROPONIN I, HIGH SENSITIVITY 47 pg/mL High 0 - 20 pg/mL [facility] Comment on above: Indeterminant: >12 to 100 pg/mL female >20 to 100 pg/mL male Indicative of myocardial injury. Serial sampling is recommended, a change of greater than or equal to 20 pg/mL is indicative of acute coronary syndrome. [facility] TROPONIN I, HIGH SENSITIVITY 47 pg/mL High 0-20 [facility] Comment on above: Result Comment: Indeterminant: >12 to 100 pg/mL female >20 to 100 pg/mL male Indicative of myocardial injury. Serial sampling is recommended, a change of greater than or equal to 20 pg/mL is indicative of acute coronary syndrome. Performed By: #### C OVID #### Testing performed at [place] [id number] URINALYSIS, MACROon 07-05-19 25 Bilirubin Ql (U) Negative NEGATIVE [employer] Clarity (U) CLEAR CLEAR [facility] Color (U) YELLOW YELLOW [facility] Glucose Test strip (U) [Mass/Vol] Negative NEGATIVE mg/dl [facility] Hemoglobin Ql (U) Negative NEGATIVE [facility] Ketones (U) [Mass/Vol] Negative NEGATIVE mg/dl [facility] Leukocyte esterase Test strip Ql (U) Negative NEGATIVE [facility] Nitrite Ql (U) Negative NEGATIVE [facility] [facility] pH (U) 7 [pH] 5.0 - 7.0 [facility] Protein Ql (U) Negative NEGATIVE mg/dl [facility] Specific gravity (U) [Rel density] 1.02 1.010 - 1.025 [facility] Urobilinogen (U) [Mass/Vol] 0.2 mg/dL [facility] URINE MACROSCOPICon 07-05-19 25 Bilirubin Ql (U) Negative Normal NEGATIVE [facility] Comment on above: Performed By: #### M RSAST #### Testing performed at [address] [address] Clarity (U) CLEAR Normal CLEAR [facility] Comment on above: Performed By: #### M RSAST #### Testing performed at [address] [address] Color (U) YELLOW Normal YELLOW [facility] Comment on above: Performed By: #### M RSAST #### Testing performed at [address] [address] Glucose Ql (U) Negative Normal NEGATIVE [facility] Comment on above: Performed By: #### M RSAST #### Testing performed at [address] [address] pH (U) 7.0 [pH] Normal 5.0-7.0 [facility] Comment on above: Performed By: #### M RSAST #### Testing performed at [address] [address] URINE HEMOGLOBIN Negative Normal NEGATIVE [facility] Comment on above: Performed By: #### M RSAST #### Testing performed at [address] [address] URINE KETONE Negative Normal NEGATIVE [facility] Comment on above: Performed By: #### M RSAST #### Testing performed at [address] [address] URINE LEUKOTEST Negative Normal NEGATIVE [facility] Comment on above: Performed By: #### M RSAST #### Testing performed at [address] [place] [address] URINE NITRATES Negative Normal NEGATIVE [facility] Comment on above: Performed By: #### M RSAST #### Testing performed at [address] [address] URINE SPEC GRAVITY 1.020 Normal 1.010-1.025 [facility] Comment on above: Performed By: #### M RSAST #### Testing performed at [address] [address] URINE TOTAL PROTEIN Negative Normal NEGATIVE [facility] Comment on above: Performed By: #### M RSAST #### Testing performed at [address] [address] Urobilinogen Qn (U) 0.2 {Bucky'U}/dL Normal 0.2-1.0 [facility] Comment on above: Performed By: #### M RSAST #### Testing performed at [address] [address] VITAMIN D (25-HYDROXY,TOTAL) on 07-04-2024 25-hydroxyvitamin D [Mass/Vol] 47.5 NG/ML [facility] Comment on above: DEFICIENT <20 NG/ML INSUFFICIENT 20-<30 NG/ML SUFFICIENT 30-100 NG/ML POTENTIAL TOXICITY >100 NG/ML CBC Auto Differentialon 05-19 Basophils (Bld) [#/Vol] 0.04 10*3/uL [facility] Basophils/100 WBC (Bld) 0.3 % [facility] Eosinophils (Bld) [#/Vol] 0.03 10*3/uL [facility] Eosinophils/100 WBC (Bld) 0.2 % [facility] Erythrocyte distribution width (RBC) [Entitic vol] 13.6 % 11.6 - 14.8 % [facility] Hematocrit (Bld) [Volume fraction] 43.8 % 41.0 - 53.0 % [facility] Hemoglobin (Bld) [Mass/Vol] 13.2 g/dL Low 13.5 - 17.5 g/dL [facility] Immature granulocytes (Bld) [#/Vol] 0.17 10*3/uL [facility] Immature granulocytes/100 WBC (Bld) 1.4 % [facility] Comment on above: The IG parameter is the percentage of metamyelocytes, myelocytes and promyelocytes. An immature granulocyte count (IG) of 1% or more suggests the possibility of infection, an IG count of 3% is very likely related to an infection. Interpretation and review of laboratory results Abnormal [facility] Lymphocytes (Bld) [#/Vol] 0.72 10*3/uL Low [facility] Lymphocytes/100 WBC (Bld) 6 % [facility] MCH (RBC) [Entitic mass] 30.6 pg 26.0 - 34.0 pg [facility] MCHC (RBC) [Mass/Vol] 30.1 g/dL Low 31.0 - 37.0 g/dL [facility] MCV (RBC) [Entitic vol] 101.6 fL High 80.0 - 100.0 fL [facility] Monocytes (Bld) [#/Vol] 0.91 10*3/uL High [facility] Monocytes/100 WBC (Bld) 7.6 % [facility] Neutrophils (Bld) [#/Vol] 10.15 10*3/uL High [facility] Neutrophils/100 WBC (Bld) 84.5 % [facility] Nucleated RBC (Bld) [#/Vol] 0 10*3/uL [facility] Nucleated RBC/100 WBC (Bld) [Ratio] 0 % [facility] Platelet mean volume (Bld) [Entitic vol] 12.4 fL 9.4 - 12.4 fL [facility] Platelets (Bld) [#/Vol] 103 10*3/uL Low [facility] RBC (Bld) [#/Vol] 4.31 10*6/uL Low [facility] ealth WBC (Bld) [#/Vol] 12.02 10*3/uL High [facility] CBC WITH AUTO DIFFERENTIALon 06-09-2024 AUTO NRBC 0.0 % Normal [facility] Comment on above: Performed By: #### L [id number] ####[facility] [address], [place] [address] Gonsalo Tello M.D. [id number] AUTO NRBC ABS COUNT 0.00 K/mcL Normal 0.00-0.00 [facility] Comment on above: Performed By: #### L [id number] #### LAB [address] [address] Gonsalo Tello M.D. [id number] BASOPHILS ABSOLUTE COUNT 0.04 K/mcL Normal 0.00-0.30 [facility] Comment on above: Performed By: #### L [id number] #### LAB [address] [address] Gonsalo Tello M.D. [id number] Basophils/100 WBC (Bld) 0.3 % Normal [facility] Comment on above: Performed By: #### L [id number] #### LAB [address] [address] Gonsalo Tello M.D. [id number] Eosinophils (Bld) [#/Vol] 0.03 10*3/uL Normal 0.00-0.50 [facility] Comment on above: Performed By: #### L [id number] #### LAB [address] [address] Gonsalo Tello M.D. [id number] Eosinophils/100 WBC (Bld) 0.2 % Normal [facility] Comment on above: Performed By: #### L [id number] #### LAB [address] [address] Gonsalo Tello M.D. [id number] Erythrocyte distribution width (RBC) [Ratio] 13.6 % Normal 11.6-14.8 [facility] Comment on above: Performed By: #### L [id number] #### LAB [address] [address] Gonsalo Tello M.D. [id number] Hematocrit (Bld) [Volume fraction] 43.8 % Normal 41.0-53.0 [facility] Comment on above: Performed By: #### L [id number] #### LAB [address] [place] [address] Gonsalo Tello M.D. [id number] Hemoglobin (Bld) [Mass/Vol] 13.2 g/dL Low 13.5-17.5 [facility] Comment on above: Performed By: #### L [id number] #### LAB [address] [address] Gonsalo Tello M.D. [id number] IG ABSOLUTE 0.17 K/mcL Normal 0.00-0.30 [facility] Comment on above: Performed By: #### L [id number] #### LAB [address] [address] Gonsalo Tello M.D. [id number] IG PERCENT 1.40 % Normal [facility] Comment on above: Result Comment: The IG parameter is the percentage of metamyelocytes, myelocytes and promyelocytes. An immature granulocyte count (IG) of 1% or more suggests the possibility of infection, an IG count of 3% is very likely related to an infection. Performed By: #### L [id number] #### LAB [address] [place] [address] Gonsalo Tello M.D. [id number] Lymphocytes (Bld) [#/Vol] 0.72 10*3/uL Low 0.90-4.00 [facility] Comment on above: Performed By: #### L [id number] #### LAB [address] [address] Gonsalo Tello M.D. [id number] Lymphocytes/100 WBC (Bld) 6.0 % Normal [facility] Comment on above: Performed By: #### L [id number] #### LAB [address] [address] Gonsalo Tello M.D. [id number] MCH (RBC) [Entitic mass] 30.6 pg Normal 26.0-34.0 [facility] Comment on above: Performed By: #### L [id number] #### LAB [address] [address] Gonsalo Tello M.D. [id number] MCV (RBC) [Entitic vol] 101.6 fL High 80.0-100.0 [facility] Comment on above: Performed By: #### L [id number] #### LAB [address] [address] Gonsalo Tello M.D. [id number] MEAN CORPUSCULAR HEMOGLOBIN CONC 30.1 g/dL Low 31.0-37.0 [facility] Comment on above: Performed By: #### L [id number] #### LAB [address] [address] Gonsalo Tello M.D. [id number] Monocytes (Bld) [#/Vol] 0.91 10*3/uL High 0.30-0.90 [facility] Comment on above: Performed By: #### L [id number] #### LAB [address] [address] Gonsalo Tello M.D. [id number] Monocytes/100 WBC (Bld) 7.6 % Normal [facility] Comment on above: Performed By: #### L [id number] #### LAB [address] [address] Gonsalo Tello M.D. [id number] NEUTROPHILS ABSOLUTE COUNT 10.15 K/mcL High 1.70-7.00 [facility] Comment on above: Performed By: #### L [id number] #### LAB [address] [address] Gonsalo Tello M.D. [id number] Neutrophils/100 WBC (Bld) 84.5 % Normal [facility] Comment on above: Performed By: #### L [id number] #### LAB [address] [address] Gonsalo Tello M.D. [id number] Platelet mean volume (Bld) [Entitic vol] 12.4 fL Normal 9.4-12.4 [facility] Comment on above: Performed By: #### L [id number] #### LAB [address] [address] Gonsalo Tello M.D. [id number] Platelets (Bld) [#/Vol] 103 10*3/uL Low 150-400 [facility] Comment on above: Performed By: #### L [id number] #### LAB [address], [place] [address] Gonsalo Tello M.D. [id number] RBC (Bld) [#/Vol] 4.31 10*6/uL Low 4.50-5.90 [facility] Comment on above: Performed By: #### L [id number] ####[facility] [address] [address] Gonsalo Tello M.D. [id number] WBC (Bld) [#/Vol] 12.02 10*3/uL High 4.50-11.00 [facility] Comment on above: Performed By: #### L [id number] ####[facility] [address] [address] Gonsalo Tello M.D. [id number] Bacteria identified Aer cx N om (Sput)Ordered By: Chen Galicia on 06-08-2024 Microscopic observation Gram stain Nom (Sput) Specimen screened and found unsatisfactory for culture. [facility] CBC Auto Differentialon 05-19 Erythrocyte distribution width (RBC) [Entitic vol] 13.6 % 11.6 - 14.8 % [facility] Hematocrit (Bld) [Volume fraction] 40.6 % Low 41.0 - 53.0 % [facility] Hemoglobin (Bld) [Mass/Vol] 12.8 g/dL Low 13.5 - 17.5 g/dL [facility] MCH (RBC) [Entitic mass] 30.5 pg 26.0 - 34.0 pg [facility] MCHC (RBC) [Mass/Vol] 31.5 g/dL 31.0 - 37.0 g/dL [facility] MCV (RBC) [Entitic vol] 96.7 fL 80.0 - 100.0 fL [facility] Nucleated RBC (Bld) [#/Vol] 0 10*3/uL [facility] Nucleated RBC/100 WBC (Bld) [Ratio] 0 % [facility] Platelet mean volume (Bld) [Entitic vol] 12.1 fL 9.4 - 12.4 fL [facility] Platelets (Bld) [#/Vol] 139 10*3/uL Low [facility] RBC (Bld) [#/Vol] 4.2 10*6/uL Low [facility]th WBC (Bld) [#/Vol] 21.22 10*3/uL [facility] CBC WITH AUTO DIFFERENTIALon 06-08-2024 AUTO NRBC 0.0 % Normal [facility] Comment on above: Performed By: #### L [id number] #### LAB [address] [address] Gonsalo Tello M.D. [id number] AUTO NRBC ABS COUNT 0.00 K/mcL Normal 0.00-0.00 [facility] Comment on above: Performed By: #### L [id number] ####[facility] [address] [address] Gonsalo Tello M.D. [id number] Erythrocyte distribution width (RBC) [Ratio] 13.6 % Normal 11.6-14.8 [facility] Comment on above: Performed By: #### L [id number] #### LAB [address] [address] Gonsalo Tello M.D. [id number] Hematocrit (Bld) [Volume fraction] 40.6 % Low 41.0-53.0 [facility] Comment on above: Performed By: #### L [id number] #### LAB [address] [address] Gonsalo Tello M.D. [id number] Hemoglobin (Bld) [Mass/Vol] 12.8 g/dL Low 13.5-17.5 [facility] Comment on above: Performed By: #### L [id number] #### LAB [address] [address] Gonsalo Tello M.D. [id number] MCH (RBC) [Entitic mass] 30.5 pg Normal 26.0-34.0 [facility] Comment on above: Performed By: #### L [id number] #### LAB [address] [address] Gonsalo Tello M.D. [id number] MCV (RBC) [Entitic vol] 96.7 fL Normal 80.0-100.0 [facility] Comment on above: Performed By: #### L [id number] ####[facility] [address] [address] Gonsalo Tello M.D. [id number] MEAN CORPUSCULAR HEMOGLOBIN CONC 31.5 g/dL Normal 31.0-37.0 [facility] Comment on above: Performed By: #### L [id number] ####[facility] [address] [address] Gonsalo Tello M.D. [id number] Platelet mean volume (Bld) [Entitic vol] 12.1 fL Normal 9.4-12.4 [facility] Comment on above: Performed By: #### L [id number] ####[facility] [address] [address] Gonsalo Tello M.D. [id number] Platelets (Bld) [#/Vol] 139 10*3/uL Low 150-400 [facility] Comment on above: Performed By: #### L [id number] #### LAB [address] [address] Gonsalo Tello M.D. [id number] RBC (Bld) [#/Vol] 4.20 10*6/uL Low 4.50-5.90 [facility] Comment on above: Performed By: #### L [id number] #### LAB [address] [address] Gonsalo Tello M.D. [id number] WBC (Bld) [#/Vol] 21.22 10*3/uL High 4.50-11.00 [facility] Comment on above: Performed By: #### L [id number] #### LAB [address] [address] Gonsalo Tello M.D. [id number] CBC and Diff Morphologyon Neutrophils.vacuolate d LM Ql (Bld) Present [facility] Ovalocytes LM Ql (Bld) Few [facility] Platelets LM Ql (Bld) Decreased Abnormal Normal [facility] RBC morphology finding Nom (Bld) See Comment [facility] Comment on above: RBC Indices confirme d with manual peripheral smear review. COMPREHENSIVE METABOLIC PANE Pj 06-08-2024 Albumin [Mass/Vol] 3.5 g/dL Normal 3.2-5.2 [facility] Comment on above: Order Comment: Injur y/Trauma or Illness?:Illness/Other How long have you had these symptoms (acute/chronic)?:Unknown Reason for exam?:memory problems over the last 2 years: hx of tongue cancer: Type of Exam?:Unknown Additional signs and symptoms?:n Performed By: #### 4 6126 #### LAB [address] [address] Gonsalo Tello M.D. [id number] ALP [Catalytic activity/Vol] 74 U/L Normal 40-150 [facility] Comment on above: Order Comment: Injur y/Trauma or Illness?:Illness/Other How long have you had these symptoms (acute/chronic)?:Unknown Reason for exam?:memory problems over the last 2 years: hx of tongue cancer: Type of Exam?:Unknown Additional signs and symptoms?:n Performed By: #### 4 6126 #### LAB [address] [address] Gonsalo Tello M.D. [id number] ALT [Catalytic activity/Vol] 15 U/L Normal 0-50 U/L [facility] Comment on above: Order Comment: Injur y/Trauma or Illness?:Illness/Other How long have you had these symptoms (acute/chronic)?:Unknown Reason for exam?:memory problems over the last 2 years: hx of tongue cancer: Type of Exam?:Unknown Additional signs and symptoms?:n Performed By: #### 4 6126 #### LAB [address] [address] Gonsalo Tello M.D. [id number] Anion gap [Moles/Vol] 13 mmol/L Normal 10-20 [facility] Comment on above: Order Comment: Injur y/Trauma or Illness?:Illness/Other How long have you had these symptoms (acute/chronic)?:Unknown Reason for exam?:memory problems over the last 2 years: hx of tongue cancer: Type of Exam?:Unknown Additional signs and symptoms?:n Performed By: #### 4 6126 ####[facility] [address] [id number] Gonsalo Tello M.D. [id number] AST [Catalytic activity/Vol] 30 U/L Normal 0-50 U/L [facility] Comment on above: Order Comment: Injur y/Trauma or Illness?:Illness/Other How long have you had these symptoms (acute/chronic)?:Unknown Reason for exam?:memory problems over the last 2 years: hx of tongue cancer: Type of Exam?:Unknown Additional signs and symptoms?:n Performed By: #### 4 6126 #### LAB [address] [address] Gonsalo Tello M.D. [id number] Bilirubin [Mass/Vol] 0.7 mg/dL Normal 0.0-1.3 [facility] Comment on above: Order Comment: Injur y/Trauma or Illness?:Illness/Other How long have you had these symptoms (acute/chronic)?:Unknown Reason for exam?:memory problems over the last 2 years: hx of tongue cancer: Type of Exam?:Unknown Additional signs and symptoms?:n Performed By: #### 4 6126 #### LAB [address] [address] Gonsalo Tello M.D. [id number] Calcium [Mass/Vol] 8.4 mg/dL Normal 8.4-10.2 [facility] Comment on above: Order Comment: Injur y/Trauma or Illness?:Illness/Other How long have you had these symptoms (acute/chronic)?:Unknown Reason for exam?:memory problems over the last 2 years: hx of tongue cancer: Type of Exam?:Unknown Additional signs and symptoms?:n Performed By: #### 4 6126 #### LAB [address] [address] Gonsalo Tello M.D. [id number] Chloride [Moles/Vol] 107 mmol/L Normal 98-108 [facility] Comment on above: Order Comment: Injur y/Trauma or Illness?:Illness/Other How long have you had these symptoms (acute/chronic)?:Unknown Reason for exam?:memory problems over the last 2 years: hx of tongue cancer: Type of Exam?:Unknown Additional signs and symptoms?:n Performed By: #### 4 6142 #### LAB [address], [place] [address] Gonsalo Tello M.D. [id number] Creatinine [Mass/Vol] 0.85 mg/dL Normal 0.80-1.30 [facility] Comment on above: Order Comment: Injur y/Trauma or Illness?:Illness/Other How long have you had these symptoms (acute/chronic)?:Unknown Reason for exam?:memory problems over the last 2 years: hx of tongue cancer: Type of Exam?:Unknown Additional signs and symptoms?:n Performed By: #### 4 6187 #### LAB [address] [address] Gonsalo Tello M.D. [id number] EGFR 92 mL/min/1.73 m2 Normal >=60 [facility] Comment on above: Order Comment: Injur y/Trauma or Illness?:Illness/Other How long have you had these symptoms (acute/chronic)?:Unknown Reason for exam?:memory problems over the last 2 years: hx of tongue cancer: Type of Exam?:Unknown Additional signs and symptoms?:n Result Comment: Marv mated GFR was calculated using the 2020 CKD-EPI creatinine equation. Performed By: #### 4 6106 #### LAB [address] [address] Gonsalo Tello M.D. [id number] Glucose [Mass/Vol] 141 mg/dL High 65-99 [facility] Comment on above: Order Comment: Injur y/Trauma or Illness?:Illness/Other How long have you had these symptoms (acute/chronic)?:Unknown Reason for exam?:memory problems over the last 2 years: hx of tongue cancer: Type of Exam?:Unknown Additional signs and symptoms?:n Performed By: #### 4 6113 #### LAB [address] [address] Gonsalo Tello M.D. [id number] HCO3 (Bld) [Moles/Vol] 27 mmol/L Normal 21-32 [facility] Comment on above: Order Comment: Injur y/Trauma or Illness?:Illness/Other How long have you had these symptoms (acute/chronic)?:Unknown Reason for exam?:memory problems over the last 2 years: hx of tongue cancer: Type of Exam?:Unknown Additional signs and symptoms?:n Performed By: #### 4 6126 #### LAB [address] [address] Gonsalo Tello M.D. [id number] Potassium [Moles/Vol] 4.4 mmol/L Normal 3.5-5.1 [facility] Comment on above: Order Comment: Injur y/Trauma or Illness?:Illness/Other How long have you had these symptoms (acute/chronic)?:Unknown Reason for exam?:memory problems over the last 2 years: hx of tongue cancer: Type of Exam?:Unknown Additional signs and symptoms?:n Performed By: #### 4 6126 #### LAB [address] [address] Gonsalo Tello M.D. [id number] Protein [Mass/Vol] 6.1 g/dL Normal 6.0-8.0 [facility] Comment on above: Order Comment: Injur y/Trauma or Illness?:Illness/Other How long have you had these symptoms (acute/chronic)?:Unknown Reason for exam?:memory problems over the last 2 years: hx of tongue cancer: Type of Exam?:Unknown Additional signs and symptoms?:n Performed By: #### 4 6126 #### LAB [address] [address] Gonsalo Tello M.D. [id number] Sodium [Moles/Vol] 143 mmol/L Normal 135-145 [facility] Comment on above: Order Comment: Injur y/Trauma or Illness?:Illness/Other How long have you had these symptoms (acute/chronic)?:Unknown Reason for exam?:memory problems over the last 2 years: hx of tongue cancer: Type of Exam?:Unknown Additional signs and symptoms?:n Performed By: #### 4 6120 #### LAB [address] [address] Gonsalo Tello M.D. [id number] Urea nitrogen [Mass/Vol] 27 mg/dL High 8-25 [facility] Comment on above: Order Comment: Injur y/Trauma or Illness?:Illness/Other How long have you had these symptoms (acute/chronic)?:Unknown Reason for exam?:memory problems over the last 2 years: hx of tongue cancer: Type of Exam?:Unknown Additional signs and symptoms?:n Performed By: #### 4 6126 #### LAB [address], [place] [address] Gonsalo Tello M.D. [id number] Urea nitrogen/Creatinine [Mass ratio] 31.8 mg/mg [facility] 10.0-20.0 [facility] Comment on above: Order Comment: Injur y/Trauma or Illness?:Illness/Other How long have you had these symptoms (acute/chronic)?:Unknown Reason for exam?:memory problems over the last 2 years: hx of tongue cancer: Type of Exam?:Unknown Additional signs and symptoms?:n Performed By: #### 4 6126 #### LAB [address], [place] [address] Gonsalo Tello M.D. [id number] Comprehensive metabolic 2000 panelon 06-08-2024 Albumin [Mass/Vol] 3.5 g/dL 3.2 - 5.2 g/dL [facility] ALP [Catalytic activity/Vol] 74 U/L 40 - 150 U/L [facility] ALT [Catalytic activity/Vol] 15 U/L 0 - 50 U/L [facility] Anion gap [Moles/Vol] 13 mmol/L 10 - 2 0 mmol/L [facility] AST [Catalytic activity/Vol] 30 U/L 0 - 50 U/L [facility] Bilirubin [Mass/Vol] 0.7 mg/dL 0.0 - 1 .3 mg/dL [facility] Calcium [Mass/Vol] 8.4 mg/dL 8.4 - 10. 2 mg/dL [facility] Chloride [Moles/Vol] 107 mmol/L 98 - 10 8 mmol/L [facility] Creatinine [Mass/Vol] 0.85 mg/dL 0.80 - 1.30 mg/dL [facility] GFR/1.73 sq M.predicted CKD-EPI (S/P/Bld) [Vol rate/Area] 92 - PINF [facility] Comment on above: Estimated GFR was ca lculated using the 2020 CKD-EPI creatinine equation. Glucose [Mass/Vol] 141 mg/dL High 65 - 99 mg/dL [facility] HCO3 [Moles/Vol] 27 mmol/L 21 - 32 mmol/L [facility] Interpretation and review of laboratory results Abnormal [facility] Potassium [Moles/Vol] 4.4 mmol/L 3.5 - 5.1 mmol/L [facility] Protein [Mass/Vol] 6.1 g/dL 6.0 - 8.0 g/dL [facility] Sodium [Moles/Vol] 143 mmol/L 135 - 145 mmol/L [facility] Urea nitrogen [Mass/Vol] 27 mg/dL High 8 - 25 mg/dL [facility] Urea nitrogen/Creatinine [Mass ratio] 31.8 mg/mg High 10.0 - 20.0 [facility] has implemented the eGFR calculation approach that does not have a coefficient for race that conforms to the NKF-ASN Task Force Recommendations. [facility] Glucose (Bld) [Mass/Vol]on 0 06-08-2024 Glucose [Mass/Vol] 128 mg/dL High 65 - 99 mg/dL [facility] Interpretation and review of laboratory results Abnormal [facility] LEGIONELLA ANTIGEN, URINEon 06-08-2024 LEGIONELLA ANTIGEN, URINE LEGIONELLA ANTIGEN Negative for Legionella antigen COMMENT: Results may be affected if patient is on diuretics. INTERPRETATION OF RESULTS: Test detects Legionella pneumophilia serogroup 1 antigens in urine. Legionnaires disease cannot be ruled out since other serogroups and species may also cause disease. Normal [facility] Comment on above: Performed By: #### 4 6477 #### [facility] [address], [place] [address] Gonsalo Tello M.D. [id number] Legionella Antigen, UrineOrd ered By: Carmel Huynh on 06-08-2024 Interpretation and review of laboratory results Normal [facility] L. pneumophila Ag Ql (U) Negative Negative for Legionella antigen [facility] Comment on above: COMMENT: Results may be affected if patient is on diuretics. INTERPRETATION OF RESULTS: Test detects Legionella pneumophilia serogroup 1 antigens in urine. Legionnaires disease cannot be ruled out since other serogroups and species may also cause disease. [facility] MANUAL DIFFERENTIALon 2024 BASOPHILS - ABS (DIFF) 0.00 K/mcL Normal 0.00-0.30 [facility] Comment on above: Performed By: #### 4 4046 #### [facility] [address] [place] [address] Amauri Barone M.D. [id number] BASOPHILS - REL (DIFF) 0.0 % Normal [facility] Comment on above: Performed By: #### 4 4046 #### [facility] [address] [place] [place] [address] Amauri Barone M.D. [id number] EOSINOPHILS - ABS (DIFF) 0.00 K/mcL Normal 0.00-0.50 [facility] Comment on above: Performed By: #### 4 [id number] #### [facility] [address] [place] [address] Amauri Barone M.D. [id number] EOSINOPHILS - REL (DIFF) 0.0 % [facility] Comment on above: Performed By: #### 4 [id number] #### [facility] [address] [place] [address] Amauri Barone M.D. [id number] LYMPHOCYTES - ABS (DIFF) 1.06 K/mcL Normal 0.90-4.00 [facility] Comment on above: Performed By: #### 4 [id number] #### [facility] [address] [place] [address] Amauri Barone M.D. [id number] LYMPHOCYTES - REL (DIFF) 5.0 % [facility] Comment on above: Performed By: #### 4 [id number] #### [facility] [address] [place] [address] Amauri Barone M.D. [id number] MONOCYTES - ABS (DIFF) 0.85 K/mcL Normal 0.30-0.90 [facility] Comment on above: Performed By: #### 4 [id number] #### [facility] [address] [place], [place] [id number] Amauri Barone M.D. [id number] MONOCYTES - REL (DIFF) 4.0 % Normal [facility] Comment on above: Performed By: #### 4 [id number] #### [facility] [address] [place], [place] [id number] Amauri Barone M.D. [id number] NEUTROPHILS - ABS (DIFF) 19.31 K/mcL High 1.70-7.00 [facility] Comment on above: Performed By: #### 4 [id number] #### [facility] [address] [place] [address] Amauri Barone M.D. [id number] NEUTROPHILS - REL (DIFF) 91.0 % Normal [facility] Comment on above: Performed By: #### 4 [id number] #### [facility] [address] [place] [address] Amauri Barone M.D. [id number] MORPHOLOGYon 06-08-2024 OVAL SCAN Few Normal [facility] Comment on above: Performed By: #### L [id number] ####[facility] [address] [address] Gonsalo Tello M.D. [id number] PLATELET ESTIMATE Decreased Abnormal Normal [facility] Comment on above: Performed By: #### L [id number] ####[facility] [address] [id number] Gonsalo Tello M.D. [id number] RBC MORPH SCAN See Comment Normal [facility] Comment on above: Result Comment: RBC Indices confirmed with manual peripheral smear review. Performed By: #### L AB295 ####[facility] [address] [id number] Gonsalo Tello M.D. [id number] VACUOLATED GRANULOCYTES Present Normal [facility] Comment on above: Performed By: #### L [id number] ####[facility] [address] [id number] Gonsalo Tello M.D. [id number] Manual Differential panel (B ld)on 06-08-2024 Basophils (Bld) [#/Vol] 0 10*3/uL [facility] Basophils/100 WBC (Bld) 0 % [facility] Eosinophils (Bld) [#/Vol] 0 10*3/uL [facility] Eosinophils/100 WBC (Bld) 0 % [facility] Lymphocytes (Bld) [#/Vol] 1.06 10*3/uL [facility] Lymphocytes/100 WBC (Bld) 5 % [facility] Monocytes (Bld) [#/Vol] 0.85 10*3/uL [facility] Monocytes/100 WBC (Bld) 4 % [facility] Neutrophils (Bld) [#/Vol] 19.31 10*3/uL High [facility] Neutrophils/100 WBC (Bld) 91 % [facility] No Panel Informationon 06-08 Interpretation and review of laboratory results Abnormal [facility] POC [facility] Glucose [Mass/Vol] 128 mg/dL High 65-99 [facility] Comment on above: Performed By: #### 4 [id number] #### [facility] [place], [place] [address] Amauri Barone M.D. [id number] S. pneumoniae Urine Antigeno n 06-08-2024 Interpretation and review of laboratory results Normal [facility] S. pneumoniae Ag Ql (U) Negative Presumptive Negative for Pneumococcal pneumoniae [facility] Comment on above: A negative result do es not rule out Streptococcus pneumoniae infection since the antigen present in the sample may be below the detection limit of the test. [facility] S.PNEUMONIAE URINE ANTIGENon 06-08-2024 S.PNEUMONIAE URINE ANTIGEN STREP PNEUMONIAE ANTIGEN, URINE Presumptive Negative for Pneumococcal pneumoniae A negative result does not rule out Streptococcus pneumoniae infection since the antigen present in the sample may be below the detection limit of the test. [facility] Comment on above: Performed By: #### 4 [id number] #### [facility] [address] [place], [place] [address] Gonsalo Tello M.D. [id number] SPUTUM AEROBIC CULTUREon SPUTUM AEROBIC CULTURE RESPIRATORY CULTURE See Gram Stain Result GRAM STAIN RESULT Specimen screened and found unsatisfactory for culture. [facility] Comment on above: Performed By: #### 4 [id number] ####[facility] [address] [address] Amauri Barone M.D. [id number] Sputum Aerobic CultureOrdere d By: Chen Galicia on 06-08-2024 Bacteria identified Aer cx Nom (Sput) See Gram Stain Result [facility] BLOOD CULTURE AEROBIC/ANAERO BICon 06-07-2024 BLOOD CULTURE AEROBIC/ANAEROBIC BLOOD CULTURE No Growth after 5 days Normal [facility] Comment on above: Performed By: #### 4 [id number] #### [facility] [address] [address] Gonsalo Tello M.D. [id number] Performed By: #### 4 [id number] #### [facility] [address] [place], [place] [address] Gonsalo Tello M.D. [id number] COVID-19, MOLECULARon 2024 SARS-CoV-2 (COVID-19) Ab IA Ql Not detected Normal Not Detected [facility] Comment on above: Result Comment: Test ing was performed using the [employer] ID NOW COVID-19 assay on the ID NOW platform. This test has not been approved for use in asymptomatic patients and its performance in this patient population has not been evaluated. Negative results do not rule out the presence of SARS-CoV-2/COVID-19. ED Prov Noteon 06-07-2024 ED Prov Note HPI: 06/07/2024, Time: @NOWNR@ Amy Sun is a 73 y.o. male presenting to the ED for shortness of breath and increased O2 requirement and history of esophageal cancer with dysphagia with frequent aspiration complicated by pneumonia, beginning over the last 1 to 2 days ago. The complaint has been constant, moderate in severity, and worsened by nothing. No alleviating factors also low-grade fever ROS: Pertinent positives and negatives are stated within HPI, all other systems reviewed and are negative. - PAST HISTORY - Past Medical History: @PMHP@ Past Surgical History: has a past surgical history that includes Neck surgery (2008); Vasectomy; Laparoscopic inguinal hernia repair (1987); CT Colonoscopy (03/25/2022); PEG tube placement (04/04/2023); Cataract extraction bilateral w/ anterior vitrectomy; Cataract extraction bilateral w/ anterior vitrectomy (Bilateral); and Abdominal surgery. Social History: reports that he quit smoking about 16 years ago. His smoking use included cigarettes. He started smoking about 64 years ago. He has been exposed to tobacco smoke. He has never used smokeless tobacco. He reports that he does not currently use alcohol. He reports that he does not currently use drugs. Family History: family history includes Coronary artery disease in his brother and father; Diabetes in his sister; Heart disease in his father; Stroke in his father. The patient's home medications have been reviewed. Allergies: Patient has no known allergies. ------ RESULTS ----- All laboratory and radiology results have been personally reviewed by myself LABS: Results for orders placed or performed during the hospital encounter of 06/07/24 POC CBC and Differential Collection Time: 06/07/24 4:02 PM Result Value Ref Range WBC 11.61 (H) 4.50 - 11.00 K/mcL RBC 4.50 4.50 - 5.90 M/mcL Hemoglobin 14.0 13.5 - 17.5 g/dL Hematocrit 42.7 41.0 - 53.0 % MCV 94.9 80.0 - 100.0 fL MCH 31.1 26.0 - 34.0 pg MCHC 32.8 31.0 - 37.0 g/dL RDW - CV 13.1 11.6 - 14.8 % Platelets 139 (L) 150 - 400 K/mcL MPV 11.3 9.4 - 12.4 fL Neutrophils 94.7 % Lymphocytes 1.4 % Monocytes 3.4 % Eosinophils 0.2 % Basophils 0.2 % IG Percent 0.10 % Neutrophils Abs 11.01 (H) 1.70 - 7.00 K/mcL Lymphocytes Abs 0.16 (L) 0.90 - 4.00 K/mcL Monocytes Abs 0.39 0.30 - 0.90 K/mcL Eosinophils Abs 0.02 0.00 - 0.50 K/mcL Basophils Abs 0.02 0.00 - 0.30 K/mcL IG Absolute 0.01 0.00 - 0.30 K/mcL POC Venous Blood Gases with Full Panel Collection Time: 06/07/24 4:09 PM Result Value Ref Range pH, Venous 7.39 7.32 - 7.42 pCO2, Darren 47.0 41.0 - 51.0 mm Hg pO2, Darren 64 (H) 25 - 40 mm Hg Base Excess, Darren 2.8 (H) -2.0 - 2.0 HCO3, Darren 28.5 (H) 24.0 - 28.0 mmol/L O2 Sat, Darren 91.5 (H) 40.0 - 70.0 % Hemoglobin, Calculated 14.7 13.5 - 17.5 g/dL Hematocrit 43 41 - 53 % Glucose 123 (H) 65 - 99 mg/dL BUN 29 (H) 8 - 25 mg/dL Creatinine 0.74 (L) 0.80 - 1.30 mg/dL GFR 96 >=60 mL/min/1.73 m2 Sodium 146 (H) 135 - 145 mmol/L Potassium 3.7 3.5 - 5.1 mmol/L Chloride 106 98 - 108 mmol/L Lactate 2.5 (H) 0.6 - 2.0 mmol/L Ionized Calcium 4.6 4.5 - 5.3 mg/dL POC B-type natriuretic peptide (BNP) Collection Time: 06/07/24 4:25 PM Result Value Ref Range BNP 56.1 <100 pg/mL COVID-19, Molecular Collection Time: 06/07/24 4:45 PM Specimen: Swab Result Value Ref Range SARS-CoV-2 Not Detected Not Detected POC Influenza A/B Collection Time: 06/07/24 5:00 PM Result Value Ref Range POC Rapid Influenza A Ag Not Detected Not Detected POC Influenza B Ag Not Detected Not Detected RADIOLOGY: Interpreted by Radiologist. XR Chest 1 View (Results Pending) --- NURSING NOTES AND VITALS REVIEWED ----- The nursing notes within the ED encounter and vital signs as below have been reviewed. BP 106/69 Pulse 97 Temp (!) 101 degrees F (38.3 degrees C) Resp 17 Ht 6' 1 Wt 81.6 kg (180 lb) SpO2 92% BMI 23.75 kg/m Oxygen Saturation Interpretation: Abnormal 80s -------PHYSICAL EXAM Constitutional/General : Alert and oriented x3, increased work of breathing and slightly somnolent Head: NC/AT Eyes: PERRL, EOMI Mouth: Oropharynx clear, handling secretions, no trismus Neck: Supple, full ROM, no meningeal signs Pulmonary: Lungs scattered rhonchi and Rales right upper lobe Cardiovascular: Regular rate and rhythm, no murmurs, gallops, or rubs. 2+ distal pulses Abdomen: Soft, non tender, non distended, Extremities: Moves all extremities x 4. Warm and well perfused Skin: warm and dry without rash Neurologic: GCS 14 slightly confused but no focal deficits Psych: Normal Affect ----- (more content not included)... Normal [facility] POC B-TYPE NATRIURETIC PEPTI DE (BNP) - Divina 06-07-2024 Natriuretic peptide B (Bld) [Mass/Vol] 56.1 pg/mL Normal <100 [facility] POC CBC AND DIFFERENTIALon 0 06-07-2024 BASOPHILS ABSOLUTE COUNT 0.02 K/mcL Normal 0.00-0.30 [facility] Basophils/100 WBC (Bld) 0.2 % Normal [facility] Eosinophils (Bld) [#/Vol] 0.02 10*3/uL Normal 0.00-0.50 [facility] Eosinophils/100 WBC (Bld) 0.2 % Normal [facility] Erythrocyte distribution width (RBC) [Ratio] 13.1 % Normal 11.6-14.8 [facility] Hematocrit (Bld) [Volume fraction] 42.7 % Normal 41.0-53.0 [facility] Hemoglobin (Bld) [Mass/Vol] 14.0 g/dL Normal 13.5-17.5 [facility] IG ABSOLUTE 0.01 K/mcL Normal 0.00-0.30 [facility] IG PERCENT 0.10 % Normal [facility] Comment on above: Result Comment: The IG parameter is the percentage of metamyelocytes, myelocytes and promyelocytes. An immature granulocyte count (IG) of 1% or more suggests the possibility of infection, an IG count of 3% is very likely related to an infection. Lymphocytes (Bld) [#/Vol] 0.16 10*3/uL Low 0.90-4.00 [facility] Lymphocytes/100 WBC (Bld) 1.4 % Normal [facility] MCH (RBC) [Entitic mass] 31.1 pg Normal 26.0-34.0 [facility] MCV (RBC) [Entitic vol] 94.9 fL Normal 80.0-100.0 [facility] MEAN CORPUSCULAR HEMOGLOBIN CONC 32.8 g/dL Normal 31.0-37.0 [facility] Monocytes (Bld) [#/Vol] 0.39 10*3/uL Normal 0.30-0.90 [facility] Monocytes/100 WBC (Bld) 3.4 % Normal [facility] NEUTROPHILS ABSOLUTE COUNT 11.01 K/mcL High 1.70-7.00 [facility] Neutrophils/100 WBC (Bld) 94.7 % Normal [facility] Platelet mean volume (Bld) [Entitic vol] 11.3 fL Normal 9.4-12.4 [facility] Platelets (Bld) [#/Vol] 139 10*3/uL Low 150-400 [facility] RBC (Bld) [#/Vol] 4.50 10*6/uL Normal 4.50-5.90 [facility] WBC (Bld) [#/Vol] 11.61 10*3/uL High 4.50-11.00 [facility] POC INFLUENZA A/B - RALSon 0 4-21-2025 POC INFLUENZA A (FSED) Not detected Normal Not Detected [facility] POC INFLUENZA B (FSED) Not detected Normal Not Detected [facility] POC VBG (EPOC) WITH FULL [place] EL - RALSon 06-07-2024 BASE EXCESS, VENOUS 2.8 High -2.0-2.0 [facility] Comment on above: Order Comment: [facility] has implemented the eGFR calculation approach that does not have a coefficient for race that conforms to the NKF-ASN Task Force Recommendations. Specimens collected in a lithium heparin tube may show erroneous pO2, pCO2 and related calculations due to aerobic handling. If the most accurate venous blood gas results are needed, use a heparinized blood gas syringe. CALCIUM IONIZED 4.6 mg/dL Normal 4.5-5.3 [facility] Comment on above: Order Comment: [facility] has implemented the eGFR calculation approach that does not have a coefficient for race that conforms to the NKF-ASN Task Force Recommendations. Specimens collected in a lithium heparin tube may show erroneous pO2, pCO2 and related calculations due to aerobic handling. If the most accurate venous blood gas results are needed, use a heparinized blood gas syringe. Chloride [Moles/Vol] 106 mmol/L Normal 98-108 [facility] Comment on above: Order Comment: [facility] has implemented the eGFR calculation approach that does not have a coefficient for race that conforms to the NKF-ASN Task Force Recommendations. Specimens collected in a lithium heparin tube may show erroneous pO2, pCO2 and related calculations due to aerobic handling. If the most accurate venous blood gas results are needed, use a heparinized blood gas syringe. Creatinine [Mass/Vol] 0.74 mg/dL Low 0.80-1.30 [facility] Comment on above: Order Comment: [facility] has implemented the eGFR calculation approach that does not have a coefficient for race that conforms to the NKF-ASN Task Force Recommendations. Specimens collected in a lithium heparin tube may show erroneous pO2, pCO2 and related calculations due to aerobic handling. If the most accurate venous blood gas results are needed, use a heparinized blood gas syringe. Glucose [Mass/Vol] 123 mg/dL High 65-99 [facility] Comment on above: Order Comment: [facility] has implemented the eGFR calculation approach that does not have a coefficient for race that conforms to the NKF-ASN Task Force Recommendations. Specimens collected in a lithium heparin tube may show erroneous pO2, pCO2 and related calculations due to aerobic handling. If the most accurate venous blood gas results are needed, use a heparinized blood gas syringe. HCO3 (Bld) [Moles/Vol] 28.5 mmol/L High 24.0-28.0 [facility] Comment on above: Order Comment: [facility] has implemented the eGFR calculation approach that does not have a coefficient for race that conforms to the NKF-ASN Task Force Recommendations. Specimens collected in a lithium heparin tube may show erroneous pO2, pCO2 and related calculations due to aerobic handling. If the most accurate venous blood gas results are needed, use a heparinized blood gas syringe. Hematocrit (Bld) [Volume fraction] 43 % Normal 41-53 [facility] Comment on above: Order Comment: [facility] has implemented the eGFR calculation approach that does not have a coefficient for race that conforms to the NKF-ASN Task Force Recommendations. Specimens collected in a lithium heparin tube may show erroneous pO2, pCO2 and related calculations due to aerobic handling. If the most accurate venous blood gas results are needed, use a heparinized blood gas syringe. HEMOGLOBIN, CALCULATED 14.7 g/dL Normal 13.5-17.5 [facility] Comment on above: Order Comment: [facility] has implemented the eGFR calculation approach that does not have a coefficient for race that conforms to the NKF-ASN Task Force Recommendations. Specimens collected in a lithium heparin tube may show erroneous pO2, pCO2 and related calculations due to aerobic handling. If the most accurate venous blood gas results are needed, use a heparinized blood gas syringe. Oxygen saturation in Blood 91.5 % High 40.0-70.0 [facility] Comment on above: Order Comment: [facility] has implemented the eGFR calculation approach that does not have a coefficient for race that conforms to the NKF-ASN Task Force Recommendations. Specimens collected in a lithium heparin tube may show erroneous pO2, pCO2 and related calculations due to aerobic handling. If the most accurate venous blood gas results are needed, use a heparinized blood gas syringe. PCO2 VENOUS 47.0 mm Hg Normal 41.0-51.0 [facility] Comment on above: Order Comment: [facility] has implemented the eGFR calculation approach that does not have a coefficient for race that conforms to the NKF-ASN Task Force Recommendations. Specimens collected in a lithium heparin tube may show erroneous pO2, pCO2 and related calculations due to aerobic handling. If the most accurate venous blood gas results are needed, use a heparinized blood gas syringe. PH VENOUS 7.39 Normal 7.32-7.42 [facility] Comment on above: Order Comment: [facility] has implemented the eGFR calculation approach that does not have a coefficient for race that conforms to the NKF-ASN Task Force Recommendations. Specimens collected in a lithium heparin tube may show erroneous pO2, pCO2 and related calculations due to aerobic handling. If the most accurate venous blood gas results are needed, use a heparinized blood gas syringe. PO2 VENOUS 64 mm Hg High 25-40 [facility] Comment on above: Order Comment: [facility] has implemented the eGFR calculation approach that does not have a coefficient for race that conforms to the NKF-ASN Task Force Recommendations. Specimens collected in a lithium heparin tube may show erroneous pO2, pCO2 and related calculations due to aerobic handling. If the most accurate venous blood gas results are needed, use a heparinized blood gas syringe. POC GFR 96 mL/min/1.73 m2 Normal >=60 [facility] Comment on above: Order Comment: [facility] has implemented the eGFR calculation approach that does not have a coefficient for race that conforms to the NKF-ASN Task Force Recommendations. Specimens collected in a lithium heparin tube may show erroneous pO2, pCO2 and related calculations due to aerobic handling. If the most accurate venous blood gas results are needed, use a heparinized blood gas syringe. Result Comment: Marv mated GFR was calculated using the 2020 CKD-EPI creatinine equation. POC LACTATE 2.5 mmol/L High 0.6-2.0 [facility] Comment on above: Order Comment: [facility] has implemented the eGFR calculation approach that does not have a coefficient for race that conforms to the NKF-ASN Task Force Recommendations. Specimens collected in a lithium heparin tube may show erroneous pO2, pCO2 and related calculations due to aerobic handling. If the most accurate venous blood gas results are needed, use a heparinized blood gas syringe. Potassium [Moles/Vol] 3.7 mmol/L Normal 3.5-5.1 [facility] Comment on above: Order Comment: [facility] has implemented the eGFR calculation approach that does not have a coefficient for race that conforms to the NKF-ASN Task Force Recommendations. Specimens collected in a lithium heparin tube may show erroneous pO2, pCO2 and related calculations due to aerobic handling. If the most accurate venous blood gas results are needed, use a heparinized blood gas syringe. Sodium [Moles/Vol] 146 mmol/L High 135-145 [facility] Comment on above: Order Comment: [facility] has implemented the eGFR calculation approach that does not have a coefficient for race that conforms to the NKF-ASN Task Force Recommendations. Specimens collected in a lithium heparin tube may show erroneous pO2, pCO2 and related calculations due to aerobic handling. If the most accurate venous blood gas results are needed, use a heparinized blood gas syringe. Urea nitrogen [Mass/Vol] 29 mg/dL High 8-25 [facility] Comment on above: Order Comment: [facility] has implemented the eGFR calculation approach that does not have a coefficient for race that conforms to the NKF-ASN Task Force Recommendations. Specimens collected in a lithium heparin tube may show erroneous pO2, pCO2 and related calculations due to aerobic handling. If the most accurate venous blood gas results are needed, use a heparinized blood gas syringe. XR CHEST PA/APon 06-07-2024 XR CHEST PA/AP EXAMINATION: XR CHEST PA/AP 06/07/2024 4:04 pm HISTORY: ORDERING SYSTEM PROVIDED HISTORY: Difficulty breathing, TECHNOLOGIST PROVIDED HISTORY: Illness/Other Reason for exam: Sob. Hx of esophageal ca Cancer History: tongue cancer Surgery, RadiationHistory: yes Encounter Type: Initial Additional signs and symptoms: . ORDERING SYSTEM PROVIDED DIAGNOSIS CODES: COMPARISON: PA chest from 12/24/2023. FINDINGS: Trachea is midline. Mediastinum is not widened. Heart size is unremarkable. There is slight atelectasis in the lung bases. There is slight haziness of the right lung field which may be due to slight pneumonitis. No effusion or nodule or pneumothorax is noted. Diaphragm and bony elements are intact. IMPRESSION: 1. Slight to mild bibasilar atelectasis. 2. Slight haziness on the right may reflect slight pneumonitis. Workstation ID: [id number] Dictated by: TASHA ODELL on FriJun 07, 2024 5:09:30 PM EDT Transcribed by: TASHA ODELL on FriJun 07, 2024 5:09:30 PM EDT Finalized by: TASHA ODELL on FriJun 07, 2024 5:09:30 PM EDT [facility] Comment on above: Order Comment: Injur y/Trauma or Illness?:Illness/OtherHow long have you had these symptoms (acute/chronic)?:AcuteReason for exam?:Sob. Hx of esophageal caHistory of cancer?:tongue cancerSurgeries, chemotherapy, or radiation?:yesType of Exam?:InitialAdditional signs and symptoms?:. IRON AND TOTAL IRON BINDING CAPACITYon 06-03-2024 % SATURATION 22 % (calc) Normal 20-48 [facility] Comment on above: Performed By: #### [id number] #### [facility] [place] [address] Ethnic Studies Professor: Vikas Grant MD IRON BINDING CAPACITY 448 mcg/dL (calc) High 250-425 [facility] Comment on above: Performed By: #### [id number], [id number] #### [facility] [place] [address] [employer]nic [employer] Professor: Vikas Grant MD IRON, TOTAL 97 mcg/dL Normal 50-180 [facility] Comment on above: Performed By: #### [id number] #### [facility] [place] [address] Ethnic Studies Professor: Vikas Grant MD VITAMIN D,25-OH,TOTAL,IAon 0 06-03-2024 VITAMIN D,25-OH,TOTAL,IA 51 ng/mL Normal 30-100 [facility] Comment on above: Result Comment: Mayra min D Status 25-OH Vitamin D: Deficiency: <20 ng/mL Insufficiency: 20 - 29 ng/mL Optimal: > or = 30 ng/mL For 25-OH Vitamin D testing on patients on D2-supplementation and patients for whom quantitation of D2 and D3 fractions is required, the QuestAssureD(TM) 25-OH VIT D, (D2,D3), LC/MS/MS is recommended: order code 54612 (patients >2yrs). See Note 1 Note 1 For additional information, please refer to http://education.[employer].[facility]/faq/BBJ338 (This link is being provided for informational/ educational purposes only.) Performed By: #### [id number] #### [facility] [address], [address] [place] [address] Ethnic Studies Professor: Vikas Johnson 05-26-2024 Esophagogastroduodeno scopy Table formatting from the original result was not included. Impression Removed tube from the body of the stomach. The tube was replaced with a PEG tube. Findings Removed tube endoscopically with a retrieval snare net from the body of the stomach. Scope was reinserted and the mucosa appeared normal. The tube was replaced with a PEG tube measuring 22 Fr using a water-filled balloon bolster; distance from external bolster to external end of tube: 3.5 cm. Patient had balloon filled PEG tube. Balloon did malfunction did not deflate. We went in endoscopically cut the PEG tube removed it with Villaseñor basket balloon did deflate once the PEG tube was cut. We inserted a 3.5 AKASH button. There was 3 mm of play. It firmed up nicely with placement of cut gauze. Internally the PEG site appeared healthy there was some minor erythema no ulceration. Recommendation Follow up with me in clinic Indication Pharyngoesophageal dysphagia, History of throat cancer, S/P percutaneous endoscopic gastrostomy (PEG) tube placement (Multi) Staff Staff Role No Staff Documented Medications See Anesthesia Record. Preprocedure A history and physical has been performed, and patient medication allergies have been reviewed. The patient's tolerance of previous anesthesia has been reviewed. The risks and benefits of the procedure and the sedation options and risks were discussed with the patient and patient's partner. All questions were answered and informed consent obtained. Details of the Procedure The patient underwent monitored anesthesia care, which was administered by an anesthesia professional. The patient's blood pressure, ECG, ETCO2, heart rate, level of consciousness, oxygen and respirations were monitored throughout the procedure. The scope was introduced through the mouth and advanced to the first part of the duodenum. Retroflexion was performed in the cardia. Prior to the procedure, the patient's H. Pylori status was negative. The patient experienced no blood loss. The procedure was not difficult. The patient tolerated the procedure well. There were no apparent adverse events. Events Procedure Events Event Event Time ENDO SCOPE IN TIME 05/26/2024 7:51 AM ENDO SCOPE OUT TIME 05/26/2024 7:57 AM Specimens No specimens collected Procedure Location [facility] [place] [address] [place] [id number] Referring Provider Vasu Jaimes DO Procedure Provider Vasu Jaimes DO [facility] Comment on above: Order Comment: 5 EGD Study observation Narrat libia 05-26-2024 Table formatting fro m the original result was not included. Impression Removed tube from the body of the stomach. The tube was replaced with a PEG tube. Findings Removed tube endoscopically with a retrieval snare net from the body of the stomach. Scope was reinserted and the mucosa appeared normal. The tube was replaced with a PEG tube measuring 22 Fr using a water-filled balloon bolster; distance from external bolster to external end of tube: 3.5 cm. Patient had balloon filled PEG tube. Balloon did malfunction did not deflate. We went in endoscopically cut the PEG tube removed it with Villaseñor basket balloon did deflate once the PEG tube was cut. We inserted a 3.5 AKASH button. There was 3 mm of play. It firmed up nicely with placement of cut gauze. Internally the PEG site appeared healthy there was some minor erythema no ulceration. Recommendation Follow up with me in clinic Indication Pharyngoesophageal dysphagia, History of throat cancer, S/P percutaneous endoscopic gastrostomy (PEG) tube placement (Multi) Staff Staff Role No Staff Documented Medications See Anesthesia Record. Preprocedure A history and physical has been performed, and patient medication allergies have been reviewed. The patient's tolerance of previous anesthesia has been reviewed. The risks and benefits of the procedure and the sedation options and risks were discussed with the patient and patient's partner. All questions were answered and informed consent obtained. Details of the Procedure The patient underwent monitored anesthesia care, which was administered by an anesthesia professional. The patient's blood pressure, ECG, ETCO2, heart rate, level of consciousness, oxygen and respirations were monitored throughout the procedure. The scope was introduced through the mouth and advanced to the first part of the duodenum. Retroflexion was performed in the cardia. Prior to the procedure, the patient's H. Pylori status was negative. The patient experienced no blood loss. The procedure was not difficult. The patient tolerated the procedure well. There were no apparent adverse events. Events Procedure Events Event Event Time ENDO SCOPE IN TIME 05/26/2024 7:51 AM ENDO SCOPE OUT TIME 05/26/2024 7:57 AM Specimens No specimens collected Procedure Location [facility] OR [address] [place] [phone] Referring Provider Vasu Jaimes DO Procedure Provider Vasu Jaimes DO IMAGING [facility] Work Phone: Radiology Study observation (narrative) [facility] Work Phone: CBC panel Auto (Bld)on 05-22 Erythrocyte distribution width (RBC) [Ratio] 13.1 % 11.5 - 14.5 % [facility] Hematocrit (Bld) [Volume fraction] 44.1 % 41.0 - 52.0 % [facility] Hemoglobin (Bld) [Mass/Vol] 14.3 g/dL 13.5 - 17.5 g/dL [facility] Interpretation and review of laboratory results Normal [facility] MCH (RBC) [Entitic mass] 30.3 pg 26.0 - 34.0 pg [facility] MCHC (RBC) [Mass/Vol] 32.4 g/dL 32.0 - 36.0 g/dL [facility] MCV (RBC) [Entitic vol] 93 fL 80 - 100 fL [facility] Nucleated RBC/100 WBC (Bld) [Ratio] 0 % [facility] Platelets (Bld) [#/Vol] 168 10*3/uL [facility] RBC (Bld) [#/Vol] 4.72 10*6/uL [facility] WBC (Bld) [#/Vol] 7 10*3/uL [facility] Erythrocyte distribution width (RBC) [Ratio] 13.1 % Normal 11.5-14.5 [facility] Comment on above: Performed By: #### 5 7021-8 #### JULIUS NAVARRETE ([id number]) [facility] ([facility]) [address] [place] [phone] Hematocrit (Bld) [Volume fraction] 44.1 % Normal 41.0-52.0 [facility] Comment on above: Performed By: #### 5 7021-8 #### JULIUS NAVARRETE ([id number]) [facility] ([facility]) [address] [place] [address] Hemoglobin (Bld) [Mass/Vol] 14.3 g/dL Normal 13.5-17.5 [facility] Comment on above: Performed By: #### 5 7021-8 #### JULIUS NAVARRETE ([id number]) [facility] ([facility]) [address] [place] [address] MCH (RBC) [Entitic mass] 30.3 pg Normal 26.0-34.0 [facility] Comment on above: Performed By: #### 5 7021-8 #### JULIUS NAVARRETE ([id number]) [facility] ([facility]) [address] [place] [address] MCHC (RBC) [Mass/Vol] 32.4 g/dL Normal 32.0-36.0 [facility] Comment on above: Performed By: #### 5 7021-8 #### JULIUS NAVARRETE ([id number]) [facility] ([facility]) [address] [place] [address] MCV (RBC) [Entitic vol] 93 fL Normal 80-100 [facility] Comment on above: Performed By: #### 5 7021-8 #### JULIUS NAVARRETE ([id number]) [facility] ([facility]) [address] [place] [address] Nucleated RBC/100 WBC (Bld) [Ratio] 0.0 /100 WBCs Normal 0.0-0.0 [facility] Comment on above: Performed By: #### 5 7021-8 #### JULIUS NAVARRETE ([id number]) [facility] ([facility]) [address] [place] [address] Platelets (Bld) [#/Vol] 168 x10*3/uL Normal 150-450 [facility] Comment on above: Performed By: #### 5 7021-8 #### JULIUS NAVARRETE ([id number]) [facility] ([facility]) [address] [place] [address] RBC (Bld) [#/Vol] 4.72 x10*6/uL Normal 4.50-5.90 [facility] Comment on above: Performed By: #### 5 7021-8 #### JULIUS NAVARRETE ([id number]) [facility] ([facility]) [address] [place] [address] WBC (Bld) [#/Vol] 7.0 x10*3/uL Normal 4.4-11.3 [facility] Comment on above: Performed By: #### 5 7021-8 #### JULIUS NAVARRETE ([id number]) [facility] ([facility]) [address] [place] [address] CT ABDOMEN PELVIS W IV CONTR Errol 05-22-2024 CT ABDOMEN PELVIS W IV CONTRAST Interpreted By: Mikey Srivastava, STUDY: CT ABDOMEN PELVIS W IV CONTRAST; 05/22/2024 3:28 pm INDICATION: Signs/Symptoms:pain and bleeding from feeding tube. COMPARISON: CT abdomen and pelvis dated 11/07/2023. ACCESSION NUMBER(S): [id number] ORDERING CLINICIAN: CARRIE LARA TECHNIQUE: Contiguous axial images of the abdomen and pelvis were obtained after the intravenous administration of 68 mL of Omnipaque 350 iodinated contrast. Coronal and sagittal reformatted images were reconstructed from the axial data. FINDINGS: LOWER CHEST: Mild bronchiectasis in the right lower lobe, likely represent sequela of prior infectious/inflammator y process. No consolidation or pleural effusion is present. Heart is normal in size. No pericardial effusion is present. Distal esophagus is unremarkable in appearance. ABDOMEN/PELVIS: ABDOMINAL WALL: Percutaneous gastrostomy tube traverses the anterior abdominal wall, and terminates within the lumen of the stomach. There is slightly increased in size and attenuation of the left rectus abdominis muscle the gastrostomy tube traverses through, compared to prior imaging on 11/07/2023. New trace nonspecific fluid surrounding the catheter present (series 5, image 7). No soft tissue gas or other discrete rim enhancing fluid collections are identified in the cutaneous tissues. Small fat containing left inguinal hernia is present. LIVER: No acute hepatic parenchymal abnormality is present. Portal vein is unremarkable in appearance. BILE DUCTS: No significant intrahepatic or extrahepatic dilatation. GALLBLADDER: Gallbladder is somewhat distended with fluid without evidence of wall thickening or pericholecystic stranding. PANCREAS: No pancreatic ductal dilatation or peripancreatic stranding is present. SPLEEN: No acute splenic abnormalities are present. ADRENALS: Bilateral adrenal glands are unremarkable in appearance. KIDNEYS, URETERS, BLADDER: Kidneys are symmetric in size and enhancement without evidence of hydronephrosis or new radiopaque nephrolithiasis. Numerous hypodense lesions are present bilaterally, likely representing cysts, largest measuring up to 3.2 cm in size in the lower pole of the left kidney. Visualized ureters are unremarkable in appearance. There is mild bladder wall thickening, which may be due to incomplete distention. REPRODUCTIVE ORGANS: Prostate is enlarged. VESSELS: Atherosclerotic plaques are present in the abdominal aorta and iliac arteries without evidence of acute vascular abnormality. There is a infrarenal aneurysm in the abdominal aorta, measuring up to 3.1 cm in size, similar in appearance to prior study. RETROPERITONEUM/LYMPH NODES: No acute retroperitoneal abnormality. No enlarged lymph nodes. BOWEL/MESENTERY/PERITO NEUM: No wall thickening is present in the stomach. No abnormal small bowel dilatation is present. No inflammatory large bowel wall thickening is present. Scattered diverticula are present throughout the descending and sigmoid colon without evidence of acute diverticulitis. Appendix is unremarkable in appearance. No free air, free fluid, or thick-walled collections are identified in the abdomen or pelvis. MUSCULOSKELETAL: No acute osseous abnormality. No suspicious osseous lesion. IMPRESSION: 1. Gastrostomy tube traverses the left anterior abdominal wall, and terminates within the stomach lumen, with trace new nonspecific fluid surrounding the catheter within the left rectus abdominis muscle. No additional rim enhancing fluid collections are identified within the cutaneous tissues. There is no soft tissue gas. The left rectus abdominis muscle that the gastrostomy tube traverses to demonstrates some new mild thickening and increased enhancement compared to prior exam on 11/07/2023, likely reactive changes. Additionally, the gastrostomy tube balloon appears somewhat decreased in size compared to prior imaging in October of 2023, now measuring up to 2 cm in axial dimension compared to 2.5 cm on previous imaging. 2. Thickened bladder may be due to underdistention or chronic outlet obstruction from enlarged prostate, although cystitis may have similar imaging appearance. Correlate with urinalysis. 3. Scattered diverticula are present throughout the descending and sigmoid colon without evidence of acute diverticulitis. 4. Infrarenal abdominal aortic aneurysms, measuring up to 3.1 cm in size, similar in appearance to prior exam. MACRO: None. Signed by: Mikey Srivastava 05/22/2024 4:25 PM Dictation workstation: [id number] [facility] CT Abdomen and Pelvis W cont rast Sen 05-22-2024 1. Gastrostomy tube traverses the left anterior abdominal wall, and terminates within the stomach lumen, with trace new nonspecific fluid surrounding the catheter within the left rectus abdominis muscle. No additional rim enhancing fluid collections are identified within the cutaneous tissues. There is no soft tissue gas. The left rectus abdominis muscle that the gastrostomy tube traverses to demonstrates some new mild thickening and increased enhancement compared to prior exam on 11/07/2023, likely reactive changes. Additionally, the gastrostomy tube balloon appears somewhat decreased in size compared to prior imaging in October of 2023, now measuring up to 2 cm in axial dimension compared to 2.5 cm on previous imaging. 2. Thickened bladder may be due to underdistention or chronic outlet obstruction from enlarged prostate, although cystitis may have similar imaging appearance. Correlate with urinalysis. 3. Scattered diverticula are present throughout the descending and sigmoid colon without evidence of acute diverticulitis. 4. Infrarenal abdominal aortic aneurysms, measuring up to 3.1 cm in size, similar in appearance to prior exam. MACRO: None. Signed by: Mikey Srivastava 05/22/2024 4:25 PM Dictation workstation: [id number] Interpreted By: Mikey Srivastava, STUDY: CT ABDOMEN PELVIS W IV CONTRAST; 05/22/2024 3:28 pm INDICATION: Signs/Symptoms:pain and bleeding from feeding tube. COMPARISON: CT abdomen and pelvis dated 11/07/2023. ACCESSION NUMBER(S): [id number] ORDERING CLINICIAN: CARRIE LARA TECHNIQUE: Contiguous axial images of the abdomen and pelvis were obtained after the intravenous administration of 68 mL of Omnipaque 350 iodinated contrast. Coronal and sagittal reformatted images were reconstructed from the axial data. FINDINGS: LOWER CHEST: Mild bronchiectasis in the right lower lobe, likely represent sequela of prior infectious/inflammator y process. No consolidation or pleural effusion is present. Heart is normal in size. No pericardial effusion is present. Distal esophagus is unremarkable in appearance. ABDOMEN/PELVIS: ABDOMINAL WALL: Percutaneous gastrostomy tube traverses the anterior abdominal wall, and terminates within the lumen of the stomach. There is slightly increased in size and attenuation of the left rectus abdominis muscle the gastrostomy tube traverses through, compared to prior imaging on 11/07/2023. New trace nonspecific fluid surrounding the catheter present (series 5, image 7). No soft tissue gas or other discrete rim enhancing fluid collections are identified in the cutaneous tissues. Small fat containing left inguinal hernia is present. LIVER: No acute hepatic parenchymal abnormality is present. Portal vein is unremarkable in appearance. BILE DUCTS: No significant intrahepatic or extrahepatic dilatation. GALLBLADDER: Gallbladder is somewhat distended with fluid without evidence of wall thickening or pericholecystic stranding. PANCREAS: No pancreatic ductal dilatation or peripancreatic stranding is present. SPLEEN: No acute splenic abnormalities are present. ADRENALS: Bilateral adrenal glands are unremarkable in appearance. KIDNEYS, URETERS, BLADDER: Kidneys are symmetric in size and enhancement without evidence of hydronephrosis or new radiopaque nephrolithiasis. Numerous hypodense lesions are present bilaterally, likely representing cysts, largest measuring up to 3.2 cm in size in the lower pole of the left kidney. Visualized ureters are unremarkable in appearance. There is mild bladder wall thickening, which may be due to incomplete distention. REPRODUCTIVE ORGANS: Prostate is enlarged. VESSELS: Atherosclerotic plaques are present in the abdominal aorta and iliac arteries without evidence of acute vascular abnormality. There is a infrarenal aneurysm in the abdominal aorta, measuring up to 3.1 cm in size, similar in appearance to prior study. RETROPERITONEUM/LYMPH NODES: No acute retroperitoneal abnormality. No enlarged lymph nodes. BOWEL/MESENTERY/PERITO NEUM: No wall thickening is present in the stomach. No abnormal small bowel dilatation is present. No inflammatory large bowel wall thickening is present. Scattered diverticula are present throughout the descending and sigmoid colon without evidence of acute diverticulitis. Appendix is unremarkable in appearance. No free air, free fluid, or thick-walled collections are identified in the abdomen or pelvis. MUSCULOSKELETAL: No acute osseous abnormality. No suspicious osseous lesion. [facility] MMODAL Luis Enrique Srivastava v, MD - 05/22/2024 Interpreted By: Mikey Srivastava, STUDY: CT ABDOMEN PELVIS W IV CONTRAST; 05/22/2024 3:28 pm INDICATION: Signs/Symptoms:pain and bleeding from feeding tube. COMPARISON: CT abdomen and pelvis dated 11/07/2023. ACCESSION NUMBER(S): [id number] ORDERING CLINICIAN: CARRIE LARA TECHNIQUE: Contiguous axial images of the abdomen and pelvis were obtained after the intravenous administration of 68 mL of Omnipaque 350 iodinated contrast. Coronal and sagittal reformatted images were reconstructed from the axial data. FINDINGS: LOWER CHEST: Mild bronchiectasis in the right lower lobe, likely represent sequela of prior infectious/inflammator y process. No consolidation or pleural effusion is present. Heart is normal in size. No pericardial effusion is present. Distal esophagus is unremarkable in appearance. ABDOMEN/PELVIS: ABDOMINAL WALL: Percutaneous gastrostomy tube traverses the anterior abdominal wall, and terminates within the lumen of the stomach. There is slightly increased in size and attenuation of the left rectus abdominis muscle the gastrostomy tube traverses through, compared to prior imaging on 11/07/2023. New trace nonspecific fluid surrounding the catheter present (series 5, image 7). No soft tissue gas or other discrete rim enhancing fluid collections are identified in the cutaneous tissues. Small fat containing left inguinal hernia is present. LIVER: No acute hepatic parenchymal abnormality is present. Portal vein is unremarkable in appearance. BILE DUCTS: No significant intrahepatic or extrahepatic dilatation. GALLBLADDER: Gallbladder is somewhat distended with fluid without evidence of wall thickening or pericholecystic stranding. PANCREAS: No pancreatic ductal dilatation or peripancreatic stranding is present. SPLEEN: No acute splenic abnormalities are present. ADRENALS: Bilateral adrenal glands are unremarkable in appearance. KIDNEYS, URETERS, BLADDER: Kidneys are symmetric in size and enhancement without evidence of hydronephrosis or new radiopaque nephrolithiasis. Numerous hypodense lesions are present bilaterally, likely representing cysts, largest measuring up to 3.2 cm in size in the lower pole of the left kidney. Visualized ureters are unremarkable in appearance. There is mild bladder wall thickening, which may be due to incomplete distention. REPRODUCTIVE ORGANS: Prostate is enlarged. VESSELS: Atherosclerotic plaques are present in the abdominal aorta and iliac arteries without evidence of acute vascular abnormality. There is a infrarenal aneurysm in the abdominal aorta, measuring up to 3.1 cm in size, similar in appearance to prior study. RETROPERITONEUM/LYMPH NODES: No acute retroperitoneal abnormality. No enlarged lymph nodes. BOWEL/MESENTERY/PERITO NEUM: No wall thickening is present in the stomach. No abnormal small bowel dilatation is present. No inflammatory large bowel wall thickening is present. Scattered diverticula are present throughout the descending and sigmoid colon without evidence of acute diverticulitis. Appendix is unremarkable in appearance. No free air, free fluid, or thick-walled collections are identified in the abdomen or pelvis. MUSCULOSKELETAL: No acute osseous abnormality. No suspicious osseous lesion. IMPRESSION: 1. Gastrostomy tube traverses the left anterior abdominal wall, and terminates within the stomach lumen, with trace new nonspecific fluid surrounding the catheter within the left rectus abdominis muscle. No additional rim enhancing fluid collections are identified within the cutaneous tissues. There is no soft tissue gas. The left rectus abdominis muscle that the gastrostomy tube traverses to demonstrates some new mild thickening and increased enhancement compared to prior exam on 11/07/2023, likely reactive changes. Additionally, the gastrostomy tube balloon appears somewhat decreased in size compared to prior imaging in October of 2023, now measuring up to 2 cm in axial dimension compared to 2.5 cm on previous imaging. 2. Thickened bladder may be due to underdistention or chronic outlet obstruction from enlarged prostate, although cystitis may have similar imaging appearance. Correlate with urinalysis. 3. Scattered diverticula are present throughout the descending and sigmoid colon without evidence of acute diverticulitis. 4. Infrarenal abdominal aortic aneurysms, measuring up to 3.1 cm in size, similar in appearance to prior exam. MACRO: None. Signed by: Mikey Srivastava 05/22/2024 4:25 PM Dictation workstation: [id number] [facility] Work Phone: Radiology Study observation (narrative) [facility] Work Phone: CT Abdomen and Pelvis W cont rast IVOrdered By: Mikey Srivastava on 05-22-2024 [facility] Work Phone: Comprehensive metabolic 2000 panelon 05-22-2024 Albumin BCP dye [Mass/Vol] 4.1 g/dL 3.4 - 5.0 g/dL [facility] ALP [Catalytic activity/Vol] 81 U/L 33 - 136 U/L [facility] ALT With P-5'-P [Catalytic activity/Vol] 16 U/L 10 - 52 U/L [facility] Comment on above: Patients treated wit h Sulfasalazine may generate falsely decreased results for ALT. Anion gap [Moles/Vol] 10 mmol/L 10 - 2 0 mmol/L [facility] AST With P-5'-P [Catalytic activity/Vol] 20 U/L 9 - 39 U/L [facility] Bilirubin [Mass/Vol] 0.8 mg/dL 0.0 - 1 .2 mg/dL [facility] Calcium [Mass/Vol] 9.4 mg/dL 8.6 - 10. 3 mg/dL [facility] Chloride [Moles/Vol] 102 mmol/L 98 - 10 7 mmol/L [facility] CO2 [Moles/Vol] 33 mmol/L High 21 - 32 mmol/L [facility] Creatinine [Mass/Vol] 0.67 mg/dL 0.50 - 1.30 mg/dL [facility] eGFR - PINF [facility] Comment on above: Calculations of marv mated GFR are performed using the 2020 CKD-EPI Study Refit equation without the race variable for the IDMS-Traceable creatinine methods. https://jasn.asnjournals.org/content//ASN.792063 1353 Glucose [Mass/Vol] 113 mg/dL High 74 - 99 mg/dL [facility] Interpretation and review of laboratory results Abnormal [facility] Potassium [Moles/Vol] 3.9 mmol/L 3.5 - 5.3 mmol/L [facility] Protein [Mass/Vol] 6.9 g/dL 6.4 - 8.2 g/dL [facility] Sodium [Moles/Vol] 141 mmol/L 136 - 145 mmol/L [facility] Urea nitrogen [Mass/Vol] 27 mg/dL High 6 - 23 mg/dL [facility] Albumin BCP dye [Mass/Vol] 4.1 g/dL Normal 3.4-5.0 [facility] Comment on above: Performed By: #### 5 7021-8 #### JULIUS NAVARRETE ([id number]) [facility] ([facility]) [facility] [place] [address] ALP [Catalytic activity/Vol] 81 U/L Normal 33-136 [facility] Comment on above: Performed By: #### 5 7021-8 #### JULIUS NAVARRETE ([id number]) [facility] ([facility]) [address] [place] [address] 45774 ALT With P-5'-P [Catalytic activity/Vol] 16 U/L Normal 10-52 [facility] Comment on above: Result Comment: Kay ents treated with Sulfasalazine may generate falsely decreased results for ALT. Performed By: #### 5 7021-8 #### JULIUS NAVARRETE ([id number]) [facility] ([facility]) [address] [place] [address] 33578 Anion gap [Moles/Vol] 10 mmol/L Normal 10-20 [facility] Comment on above: Performed By: #### 5 7021-8 #### JULIUS NAVARRETE ([id number]) [facility] ([facility]) [facility] [place] [address] AST With P-5'-P [Catalytic activity/Vol] 20 U/L Normal 9-39 [facility] Comment on above: Performed By: #### 5 7021-8 #### JULIUS NAVARRETE ([id number]) [facility] ([facility]) [address] [place] [address]25 Bilirubin [Mass/Vol] 0.8 mg/dL Normal 0.0-1.2 [facility] Comment on above: Performed By: #### 5 7021-8 #### JULIUS NAVARRETE ([id number]) [facility] ([facility]) [address] [place] [address] 83269 Calcium [Mass/Vol] 9.4 mg/dL Normal 8.6-10.3 [facility] Comment on above: Performed By: #### 5 7021-8 #### JULIUS NAVARRETE ([id number]) [facility] ([facility]) [address] [place] [address] 46777 Chloride [Moles/Vol] 102 mmol/L Normal 98-107 [facility] Comment on above: Performed By: #### 5 7021-8 #### JULIUS NAVARRETE ([id number]) [facility] ([facility]) [address] [place] [address] 62974 CO2 [Moles/Vol] 33 mmol/L High 21-32 [facility] Comment on above: Performed By: #### 5 7021-8 #### JULIUS NAVARRETE ([id number]) [facility] ([facility]) [address] [place] [address] 07939 Creatinine [Mass/Vol] 0.67 mg/dL Normal 0.50-1.30 [facility] Comment on above: Performed By: #### 5 7021-8 #### JULIUS NAVARRETE ([id number]) [facility] ([facility]) [address] [place] [address] 93733 GFR/1.73 sq M.predicted MDRD (S/P/Bld) [Vol rate/Area] mL/min/{1.73_m2} Normal >60 [facility] Comment on above: Result Comment: Calc ulations of estimated GFR are performed using the 2020 CKD-EPI Study Refit equation without the race variable for the IDMS-Traceable creatinine methods. https://jasn.asnjournals.org/content/early/ASN.489831 9797 Performed By: #### 5 7021-8 #### JULIUS NAVARRETE ([id number]) [facility] ([facility]) [address] [place] [address] 92354 Glucose [Mass/Vol] 113 mg/dL High 74-99 [facility] Comment on above: Performed By: #### 5 7021-8 #### JULIUS NAVARRETE ([id number]) [facility] ([facility]) [address] [place] [address] 92378 Potassium [Moles/Vol] 3.9 mmol/L Normal 3.5-5.3 [facility] Comment on above: Performed By: #### 5 7021-8 #### JULIUS NAVARRETE ([id number]) [facility] ([facility]) [address] [place] [address] 90080 Protein [Mass/Vol] 6.9 g/dL Normal 6.4-8.2 [facility] Comment on above: Performed By: #### 5 7021-8 #### JULIUS NAVARRETE ([id number]) [facility] ([facility]) [address] [place] [address] 83038 Sodium [Moles/Vol] 141 mmol/L Normal 136-145 [facility] Comment on above: Performed By: #### 5 7021-8 #### JULIUS NAVARRETE ([id number]) [facility] ([facility]) [address] [place] [address] 78015 Urea nitrogen [Mass/Vol] 27 mg/dL High 6-23 [facility] Comment on above: Performed By: #### 5 7021-8 #### JULIUS NAVARRETE ([id number]) [facility] ([facility]) [address] [place] [address] 32821 ED Prov Noteon 05-05-2024 ED Prov Note HPI: 05/05/2024, Time: @NAFISA@ Amy Nunes Dino is a 73 y.o. male presenting to the ED for Serna catheter leaking, beginning today ago. The complaint has been intermittent, moderate in severity, and worsened by nothing. Also pain around catheter if he touches IT or moves IT. No fever or chills or fatigue ROS: Pertinent positives and negatives are stated within HPI, all other systems reviewed and are negative. - PAST HISTORY - Past Medical History: @[facility]@ Past Surgical History: has a past surgical history that includes Neck surgery (2008); Vasectomy; Laparoscopic inguinal hernia repair (1987); CT Colonoscopy (03/25/2022); PEG tube placement (04/04/2023); Cataract extraction bilateral w/ anterior vitrectomy; Cataract extraction bilateral w/ anterior vitrectomy (Bilateral); and Abdominal surgery. Social History: reports that he quit smoking about 16 years ago. His smoking use included cigarettes. He started smoking about 64 years ago. He has been exposed to tobacco smoke. He has never used smokeless tobacco. He reports that he does not currently use alcohol. He reports that he does not currently use drugs. Family History: family history includes Coronary artery disease in his brother and father; Diabetes in his sister; Heart disease in his father; Stroke in his father. The patient's home medications have been reviewed. Allergies: Patient has no known allergies. ------ RESULTS ----- All laboratory and radiology results have been personally reviewed by myself LABS: Results for orders placed or performed during the hospital encounter of 05/03/24 POC CBC and Differential Collection Time: 05/03/24 7:26 AM Result Value Ref Range WBC 7.08 4.50 - 11.00 K/mcL RBC 4.77 4.50 - 5.90 M/mcL Hemoglobin 15.0 13.5 - 17.5 g/dL Hematocrit 44.3 41.0 - 53.0 % MCV 92.9 80.0 - 100.0 fL MCH 31.4 26.0 - 34.0 pg MCHC 33.9 31.0 - 37.0 g/dL RDW - CV 13.1 11.6 - 14.8 % Platelets 175 150 - 400 K/mcL MPV 11.1 9.4 - 12.4 fL Neutrophils 80.6 % Lymphocytes 9.2 % Monocytes 9.7 % Eosinophils 0.1 % Basophils 0.1 % IG Percent 0.30 % Neutrophils Abs 5.70 1.70 - 7.00 K/mcL Lymphocytes Abs 0.65 (L) 0.90 - 4.00 K/mcL Monocytes Abs 0.69 0.30 - 0.90 K/mcL Eosinophils Abs 0.01 0.00 - 0.50 K/mcL Basophils Abs 0.01 0.00 - 0.30 K/mcL IG Absolute 0.02 0.00 - 0.30 K/mcL POC Basic Metabolic Panel Collection Time: 05/03/24 7:32 AM Result Value Ref Range Glucose 104 (H) 65 - 99 mg/dL BUN 23 8 - 25 mg/dL Creatinine 0.77 (L) 0.80 - 1.30 mg/dL GFR 95 >=60 mL/min/1.73 m2 Sodium 144 135 - 145 mmol/L Potassium 4.2 3.5 - 5.1 mmol/L Chloride 101 98 - 108 mmol/L TCO2 34 (H) 21 - 32 mmol/L Ionized Calcium 4.7 4.5 - 5.3 mg/dL POC Urinalysis Dipstick, Auto Collection Time: 05/03/24 8:02 AM Result Value Ref Range Spec Grav, UA 1.020 1.005 - 1.025 pH, UA 7.0 5.0 - 7.0 Protein, UA Negative Negative mg/dL Glucose, UA Negative Negative mg/dL Ketones, UA Negative Negative mg/dL Bilirubin, UA Negative Negative Urobilinogen, UA 0.2 <2.0 mg/dL Blood, UA Negative Negative Nitrite, UA Negative Negative Leukocyte Esterase, UA Negative Negative RADIOLOGY: Interpreted by Radiologist. No orders to display --- NURSING NOTES AND VITALS REVIEWED ----- The nursing notes within the ED encounter and vital signs as below have been reviewed. BP 114/79 (BP Location: Left arm) Pulse (!) 50 Temp 98 degrees F (36.7 degrees C) Resp 16 Ht 6' 1 Wt 83.5 kg (184 lb) SpO2 91% BMI 24.28 kg/m Oxygen Saturation Interpretation: Normal -------PHYSICAL EXAM Constitutional/General : Alert and oriented x3, well appearing, non toxic in mild apparent discomfort from catheter Head: NC/AT Eyes: PERRL, EOMI Mouth: Oropharynx clear, handling secretions, no trismus Neck: Supple, full ROM, no meningeal signs Pulmonary: Lungs clear to auscultation bilaterally, no wheezes, rales, or rhonchi. Not in respiratory distress Cardiovascular: Regular rate and rhythm, no murmurs, gallops, or rubs. 2+ distal pulses Abdomen: Soft, non tender, non distended, Extremities: Moves all extremities x 4. Warm and well perfused Skin: warm and dry without rash Neurologic: GCS 15, Psych: Normal Affect -------- ED COURSE/MEDICAL DECISION MAKING ------ Medications lidocaine HCL (UROJET/GLYDO) 2 % applicator 1 Application (1 Application Mucous Membrane Given 05/05/24 1105) Medical Decision Making: Will attempt to reposition catheter and irrigate Counseling: The emergency provider has spoken with the patient and discussed today's results, in addition to providing spec (more content not included)... [facility] ED Prov Noteon 05-03-2024 ED Prov Note ED PROVIDER NOTE [facility] NAME: Amy Sun AGE: 73 y.o. : 1950 VISIT DATE: 05/03/2024 CSN: [id number] PCP: Ulices Clark DO Chief Complaint Patient presents with Emesis Abdominal Pain Urinary Retention 73-year-old male patient presents ER for evaluation of urinary retention. Patient endorses difficulty peeing over the last 24 hours suprapubic pain and pressure. No nausea or emesis, no fevers. 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 Chronic kidney disease (CKD) stage G1/A2, glomerular filtration rate (GFR) equal to or greater than 90 mL/min/1.73 square meter and albuminuria creatinine ratio between 30-299 mg/g COPD (chronic obstructive pulmonary disease) (HCC) ED (erectile dysfunction) Edema leg bilateral GERD (gastroesophageal reflux disease) Hepatic steatosis Hyperlipidemia Hypertension Insomnia Migraine without aura and without status migrainosus, not intractable 09/25/2023 Prediabetes Past Surgical History: Procedure Laterality Date ABDOMINAL SURGERY CATARACT EXTRACTION BILATERAL W/ ANTERIOR VITRECTOMY CATARACT EXTRACTION BILATERAL W/ ANTERIOR VITRECTOMY Bilateral CT COLONOSCOPY 03/25/2022 CT COLONOSCOPY LAPAROSCOPIC INGUINAL HERNIA REPAIR [address] Holder for tongue cancer PEG TUBE PLACEMENT 04/04/2023 VASECTOMY Family History Problem Relation Age of Onset Stroke Father Heart disease Father Coronary artery disease Father Diabetes Sister Coronary artery disease Brother Social History [1] Previous Medications Medication Sig albuterol 90 mcg/actuation inhaler Inhale 2 (two) puffs every 6 (six) hours as needed for shortness of breath or wheezing . apixaban (Eliquis) 5 mg Tab 1 (one) tablet (5 mg total) by Per G Tube route 2 (two) times a day . apixaban (ELIQUIS) 5 mg Tab 1 (one) tablet (5 mg total) by Per G Tube route 2 (two) times a day . budesonide (PULMICORT) 0.5 mg/2 mL nebulizer solution Take 2 mL (0.5 mg total) by nebulization daily . famotidine (PEPCID) 20 MG tablet Take 1 (one) tablet (20 mg total) by mouth 2 (two) times a day . fluticasone propionate (FLONASE) 50 mcg/actuation nasal spray Instill 2 (two) sprays into each nostril daily . formoterol fumarate (PERFOROMIST) 20 mcg/2 mL nebulizer solution Take 2 mL (20 mcg total) by nebulization . Lactobacillus rhamnosus GG (CULTURELLE) 10 billion cell capsule Take 1 (one) capsule by mouth daily . metoclopramide (REGLAN) 5 MG tablet Take 1 (one) tablet (5 mg total) by mouth 2 (two) times a day Take 30 minutes before meal . sertraline (ZOLOFT) 50 MG tablet Take 1 (one) tablet (50 mg total) by mouth daily . SUMAtriptan (IMITREX) 50 MG tablet Take 1 (one) tablet (50 mg total) by mouth every 2 (two) hours as needed for migraine Max of 200 mg in 24hrs, do not treat more than 3 times a week . tamsulosin (FLOMAX) 0.4 mg capsule Take 1 (one) capsule (0.4 mg total) by mouth daily . traMADol (ULTRAM) 50 mg tablet Take 1 (one) tablet (50 mg total) by mouth every 4 (four) hours as needed for pain (Days supply per fill: . Allergies[2] Review of Systems All other systems reviewed and are negative. Patient Vitals for the past 24 hrs: BP Temp Temp src Pulse Resp SpO2 Height Weight 05/03/24 0714 (!) 168/100 98.4 degrees F (36.9 degrees C) Temporal 65 18 93 % 6' 1 83.5 kg (184 lb) Physical Exam Vitals reviewed. Constitutional: Appearance: Normal appearance. HENT: Head: Normocephalic and atraumatic. Right Ear: Tympanic membrane and external ear normal. Left Ear: Tympanic membrane and external ear normal. Nose: Nose normal. Mouth/Throat: Mouth: Mucous membranes are moist. Pharynx: Oropharynx is clear. Eyes: Extraocular Movements: Extraocular movements intact. Pupils: Pupils are equal, round, and reactive to light. Cardiovascular: Rate and Rhythm: Normal rate and regular rhythm. Pulses: Normal pulses. Heart sounds: Normal heart sounds. Musculoskeletal: Cervical back: Normal range of motion and neck supple. Pulmonary: Effort: Pulmonary effort is normal. Breath sounds: Normal breath sounds. Abdominal: General: Abdomen is flat. Palpations: Abdomen is soft. Comments: Fullness pressure tenderness to suprapubic region Skin: General: Skin is dry. Capillary Refill: Capillary refill takes less than 2 seconds. Neurological: General: No focal deficit present. Mental Status: He is alert and oriented to person, place, and time. Psychiatric: Mood and Affect: Mood normal. Behavior: Behavior normal. Laboratory & Radiographic Imaging (if done): Results for orders placed or performed during the hospital encounter of 05/03/24 POC Basic Metabolic Panel Result Value Ref Range Glucose 104 (H) 65 - 99 mg/dL BUN 23 8 - 25 mg/dL Creatinine 0.77 (L) 0.80 - 1.30 mg/dL GFR 95 >=60 mL/ (more content not included)... Normal [facility] POC BASIC METABOLIC PANEL - Divina 05-03-2024 Chloride [Moles/Vol] 101 mmol/L Normal 98-108 [facility] Comment on above: Order Comment: [facility] has implemented the eGFR calculation approach that does not have a coefficient for race that conforms to the NKF-ASN Task Force Recommendations. CO2 [Moles/Vol] 34 mmol/L High 21-32 [facility] Comment on above: Order Comment: [facility] has implemented the eGFR calculation approach that does not have a coefficient for race that conforms to the NKF-ASN Task Force Recommendations. Creatinine [Mass/Vol] 0.77 mg/dL Low 0.80-1.30 [facility] Comment on above: Order Comment: [facility] has implemented the eGFR calculation approach that does not have a coefficient for race that conforms to the NKF-ASN Task Force Recommendations. Glucose [Mass/Vol] 104 mg/dL High 65-99 [facility] Comment on above: Order Comment: [facility] has implemented the eGFR calculation approach that does not have a coefficient for race that conforms to the NKF-ASN Task Force Recommendations. POC GFR 95 mL/min/1.73 m2 Normal >=60 [facility] Comment on above: Order Comment: [facility] has implemented the eGFR calculation approach that does not have a coefficient for race that conforms to the NKF-ASN Task Force Recommendations. Result Comment: Marv mated GFR was calculated using the 2020 CKD-EPI creatinine equation. POC IONIZED CALCIUM 4.7 mg/dL Normal 4.5-5.3 [facility] Comment on above: Order Comment: [facility] has implemented the eGFR calculation approach that does not have a coefficient for race that conforms to the NKF-ASN Task Force Recommendations. Potassium [Moles/Vol] 4.2 mmol/L Normal 3.5-5.1 [facility] Comment on above: Order Comment: [facility] has implemented the eGFR calculation approach that does not have a coefficient for race that conforms to the NKF-ASN Task Force Recommendations. Sodium [Moles/Vol] 144 mmol/L Normal 135-145 [facility] Comment on above: Order Comment: [facility] has implemented the eGFR calculation approach that does not have a coefficient for race that conforms to the NKF-ASN Task Force Recommendations. Urea nitrogen [Mass/Vol] 23 mg/dL Normal 8-25 [facility] Comment on above: Order Comment: [facility] has implemented the eGFR calculation approach that does not have a coefficient for race that conforms to the NKF-ASN Task Force Recommendations. POC CBC AND DIFFERENTIALon 0 - BASOPHILS ABSOLUTE COUNT 0.01 K/mcL Normal 0.00-0.30 [facility] Basophils/100 WBC (Bld) 0.1 % Normal [facility] Eosinophils (Bld) [#/Vol] 0.01 10*3/uL Normal 0.00-0.50 [facility] Eosinophils/100 WBC (Bld) 0.1 % Normal [facility] Erythrocyte distribution width (RBC) [Ratio] 13.1 % Normal 11.6-14.8 [facility] Hematocrit (Bld) [Volume fraction] 44.3 % Normal 41.0-53.0 [facility] Hemoglobin (Bld) [Mass/Vol] 15.0 g/dL Normal 13.5-17.5 [facility] IG ABSOLUTE 0.02 K/mcL Normal 0.00-0.30 [facility] IG PERCENT 0.30 % Normal [facility] Comment on above: Result Comment: The IG parameter is the percentage of metamyelocytes, myelocytes and promyelocytes. An immature granulocyte count (IG) of 1% or more suggests the possibility of infection, an IG count of 3% is very likely related to an infection. Lymphocytes (Bld) [#/Vol] 0.65 10*3/uL Low 0.90-4.00 [facility] Lymphocytes/100 WBC (Bld) 9.2 % Normal [facility] MCH (RBC) [Entitic mass] 31.4 pg Normal 26.0-34.0 [facility] MCV (RBC) [Entitic vol] 92.9 fL Normal 80.0-100.0 [facility] MEAN CORPUSCULAR HEMOGLOBIN CONC 33.9 g/dL Normal 31.0-37.0 [facility] Monocytes (Bld) [#/Vol] 0.69 10*3/uL Normal 0.30-0.90 [facility] Monocytes/100 WBC (Bld) 9.7 % Normal [facility] NEUTROPHILS ABSOLUTE COUNT 5.70 K/mcL Normal 1.70-7.00 [facility] Neutrophils/100 WBC (Bld) 80.6 % Normal [facility] Platelet mean volume (Bld) [Entitic vol] 11.1 fL Normal 9.4-12.4 [facility] Platelets (Bld) [#/Vol] 175 10*3/uL Normal 150-400 [facility] RBC (Bld) [#/Vol] 4.77 10*6/uL Normal 4.50-5.90 [facility] WBC (Bld) [#/Vol] 7.08 10*3/uL Normal 4.50-11.00 [facility] POC URINALYSIS DIPSTICK,AUTO - RALSon 05-03-2024 POC BILIRUBIN, URINE Negative Normal Negative [facility] POC BLOOD, URINE Negative Normal Negative [facility] POC GLUCOSE, URINE Negative Normal Negative [facility] POC KETONES, URINE Negative Normal Negative [facility] POC LEUKOCYTE ESTERASE, URINE Negative Normal Negative [facility] POC NITRITE, URINE Negative Normal Negative [facility] POC PH, URINE 7.0 Normal 5.0-7.0 [facility] POC PROTEIN, URINE Negative Normal Negative [facility] POC SPECIFIC GRAVITY 1.020 Normal 1.005-1.025 [facility] POC UROBILINOGEN 0.2 mg/dL Normal < 2.0 [facility] CT CHEST WITHOUT CONTRASTon 04-08-2024 CT CHEST WITHOUT CONTRAST EXAMINATION: CT CHEST WITHOUT CONTRAST HISTORY: ffup PNA, lung nodule RUL, RLL CTPE 12/2023 COMPARISON: 06/14/2023 TECHNIQUE: Multi-planar CT images were created with IV contrast. Axial, Coronal, and Sagittal images. Dose reduction techniques were achieved by using automated exposure control and/or adjustment of mA and/or kV according to patient size and/or use of iterative reconstruction technique. FINDINGS: LUNGS: Right lower lobe bronchiectasis with mild peribronchial thickening. Mild centrilobular emphysema with an upper lobe predominance. There is been interval resolution of the previously identified rounded atelectasis medial basilar segment of the right lower lobe. There is been interval development of pattern subcentimeter semisolid nodules in both lungs most significant in the left lower lobe, the largest lesion on axial image 98 measures 8.7 mm in diameter PLEURA: No mass, effusion, or pneumothorax. VASCULATURE: No abnormality. MEGA: No mass or adenopathy. MEDIASTINUM: No mass or adenopathy. CARDIAC: No enlargement or pericardial effusion Coronary arteries: Absent calcifications AORTA: No aortic aneurysm. Mild calcific atherosclerosis CHEST WALL: No mass or axillary adenopathy. BONES: No bone lesion or fracture. LIMITED ABDOMEN: Percutaneous gastrostomy catheter OTHER: Negative. IMPRESSION: Interval development of multiple semisolid nodules in both lungs, the largest in the left lower lobe measuring 8.7 mm. These are likely infectious or inflammatory. Pulmonary nodule recommendation: Non-contrast chest CT at 3-6 months is recommended. If the nodules are stable at time of repeat CT, then future CT at 18-24 months (from today's scan) is considered optional for low-risk patients, but is recommended for high-risk patients (Per Fleischner Society guidelines). Normal [facility] COVID-19, MOLECULARon 2024 INTERNAL CONTROL (GUILLERMO ID) Pass Normal [facility] SARS-CoV-2 (COVID-19) Ab IA Ql Not detected Normal Not Detected [facility] COVID-19, Molecularon 2024 SARS-CoV-2 (COVID-19) RdRp gene ROBERTA+probe Ql (Resp) Not detected Not Detected [facility] POC Influenza AOrdered By: Veronica Szymanski on 03-17-2024 FLUAV Ag Ql (Nph) Negative Negative [facility] POC Influenza Bon 03-17-2024 FLUBV Ag Ql (Nph) Negative Negative [facility] SARS-CoV-2 (COVID-19) RdRp g jasmyn ROBERTA+probe Ql (Resp)on 03-17-2024 Internal Control Pass [facility] CNPNon 01-27-2024 [facility]Y SUN ([id number]) 1950 M Date Time Provider Department 01/27/24 MONICA DIAZ During your visit today, we recorded the following information about you: Monica Diaz RN 01/27/2024 9:33 AM Signed ----- Message from [facility] sent at 01/26/2024 1:14 PM EST ----- Call patient no additional studies required. Moniac Diaz RN 01/27/2024 9:50 AM Signed Called and spoke with Christa, she is aware and denies any questions at this time. AA Allergies As of Date: 01/27/2024 (No Known Allergies) Date Reviewed: 01/26/2024 Reviewed by: Nicolas Peoples MA - Fully Assessed Reason for Visit: Results [95] Cmt: Called and spoke with Christa, she is aware and denies any questions at this time. AA Prescriptions as of 01/27/2024 - apixaban (ELIQUIS) 5 mg tab(s) Take 5 mg by mouth two times a day. - formoterol fumarate (PERFOROMIST) 20 mcg/2 mL nebu Inhale 20 mcg as instructed. - revefenacin (YUPELRI) 175 mcg/3 mL solution for nebulization Inhale 175 mcg as instructed once daily. - tamsulosin (FLOMAX) 0.4 mg Take 0.4 mg by mouth once daily. - famotidine (PEPCID) 20 mg tablet Take 20 mg by mouth. - budesonide (PULMICORT) 0.5 mg/2 mL nebulizer solution Inhale 0.5 mg as instructed. - nut tx, lact-reduced, iron (BOOST VHC) 0.09-2.25 gram-kcal/mL liqd 52 mL by FEEDING TUBE route continuous. [place] with infinity feeding pump. Flush with an additional 33oz of water daily (divided). - iv contrast (will be provided with radiology test) CT Chest W -Inject, intravenously, once for 1 dose.No IV access, insert saline lock prior to the beginning of sedation, infusion, injection of imaging exam. Discontinue saline lock post exam. If Pt. has a central line or IVAD, may access for administration according to line specific nursing protocol. Once exam is complete flush line and de-access according to line specific nursing protocol in the CT contrast administration guidelines link. - iv contrast (will be provided with radiology test) CT ABD/PEL -Inject, intravenously, once for 1 dose.No IV access, insert saline lock prior to the beginning of sedation, infusion, injection of imaging exam. Discontinue saline lock post exam. If Pt. has a central line or IVAD, may access for administration according to line specific nursing protocol. Once exam is complete flush line and de-access according to line specific nursing protocol in the CT contrast administration guidelines link. - enteric contrast (will be provided with radiology test) For CT ABD/PEL W IVCON Routine order Administer, As Directed One Time Only, via Oral, Rectal, both Oral and Rectal, Enteric Tube, Stoma or Indwelling Catheter, Enteric Contrast as designated per enteric contrast guidelines - nutritional supplement-fiber (COMPLEAT 1.5) 0.07 gram-1.5 kcal/mL liqd 80ml/hr of Compleat 1.5 continuously for 24 hours. Use 1 carton of Benecalorie daily. Flush with 200ml water four times per day. - sertraline (ZOLOFT) 25 mg tablet Take 1 tablet by mouth once daily. - furosemide (LASIX) 20 mg tablet Take 20 mg by mouth once daily. - sulindac (CLINORIL) 150 mg tablet - pilocarpine (ISOPTO CARPINE) 2 % ophthalmic solution 1 Drop. - rosuvastatin (CRESTOR) 5 mg tablet Take 5 mg by mouth once daily. - pantoprazole DR (PROTONIX) 40 mg tablet - propylene glycol/peg 400 (BLINK TEARS LUBRICATING) Eye Drops Use 1 Drop in both eyes as needed. - traMADol (ULTRAM) 50 mg tablet Take 1 tablet by mouth twice daily. - testosterone (ANDROGEL) 50 mg/5 g (1%) gel Apply 0.5 Tubes as directed once daily. 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] 03/14/2015 06/05/2016 Astigmatism of left eye [H52.202] 03/14/2015 Vitreous floaters of both eyes [H43.393] 03/14/2015 Essential hypertension [I10] 03/14/2015 Cataract, secondary obscuring vision [H26.499] 03/14/2015 04/06/2015 History of benign hyperplasia of prostate [Z87.*03/14/2015 Dry eye [H04.129] 03/14/2015 06/05/2016 Pseudophakia of right eye [Z96.1] 03/27/2015 04/06/2015 Pseudophakia of both eyes [Z96.1] 04/06/2015 Pseudophakia of left eye [Z96.1] 04/10/2015 06/05/2016 Dry eye syndrome [H04.129] 06/05/2016 Epiretinal membrane (ERM) of left eye [H35.372] 06/02/2017 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 Normal [facility] CNOVSPon 01-26-2024 CNOVSP Visit (SP) Office ([facility]) AMY SUN ([id number]) 1950 Date Time Provider Department 01/26/24 11:00 AM SUSHMA BRANDON During your visit today, we recorded the following information about you: Temperature Pulse Respiration Blood pressure 97.5 degrees 55/minute 16/minute 136/88 Weight 78.8 kg Sushma Brandon 01/26/2024 11:31 AM Signed HISTORY OF PRESENT ILLNESS: Mr. 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 Patient that time was treated with chemoradiation therapy. He completed radiation therapy in February 2009. He was treated on the care Dr. Lennon. He was last seen by him on September 2017. CURRENT STATUS: Since her last visit, patient reports that he has been seen by Dr. Rivas and they decided not to have the vocal cord fillers placed due to inability to speak. He continues to use his feeding tube. He now returns ECOG PERFORMANCE STATUS: 0- Fully active, able to carry on all pre-disease performance w/o restriction. Social History Tobacco Use Smoking status: Former Current packs/day: 0.00 Average packs/day: 2.0 packs/day for 46.0 years (92.0 ttl pk-yrs) Types: Cigarettes Start date: 09/19/1962 Quit date: 09/19/2008 Years since quittin.3 Smokeless tobacco: Never Tobacco comments: Quit Vaping Use Vaping status: Never Used Substance Use Topics Alcohol use: No Drug use: No FAMILY HISTORY Problem Relation Age of Onset Cataract Mother other (Dementia) Mother Coronary Artery Disease Father Heart Father Cataract Father Glaucoma Father Detached Retina No Family History Macular Degen No Family History Blindness No Family History Amblyopia No Family History Strabismus No Family History PAST MEDICAL HISTORY Diagnosis Date Epiretinal membrane (ERM) of left eye Erythrocytosis 09/15/2014 Hyperlipemia 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) 12/02/2008 Nausea with vomiting PCO (posterior capsular opacification), left Pseudophakia, both eyes Secondary and unspecified malignant neoplasm of lymph nodes of head, face, 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 HEAD (Incl. face): Normocephalic; Atraumatic. EYES: Pupils are reactive. No scleral icterus. HEENT: No oral exudates. NECK: No thyromegaly. No JVD. Evidence of neck surgery. HEMATOLOGY/LYMPHATIC: No petechiae or purpura. No tender or palpable lymph nodes in the cervical, supraclavicular, axillary or inguinal areas. RESPIRATORY: Lungs are clear to auscultation. CARDIOVASCULAR: Regular rate and rhythm. 2 + radial pulse. ABDOMEN: Non-tender, soft, positive bowel sounds. BACK/SPINE: No kyphosis or scoliosis. Non tender to palpation. MUSCULOSKELETAL: No tenderness or swelling, normal range of motion without obvious weakness. EXTREMITIES: No cyanosis, clubbing INTEGUMENTARY: No rashes or masses. NEURO: No sensory or motor deficits, normal cerebellar function, normal gait, cranial nerves intact. PSYCHIATRIC: Pleasant affect. No signs of agitation. LABS: Latest Reference Range AND Units 01/22/24 12:51 Sodium, Whole Blood (iSTAT) 138 - 146 mmol/L 147 (H) Potassium, Whole Blood (iSTAT) 3.5 - 4.9 mmol/L 3.6 Chloride, Whole Blood (iSTAT) 98 - 109 mmol/L 100 TCO2, Whole Blood (iSTAT) 24 - 29 mmol/L 34 (H) BUN, Whole Blood (iSTAT) 8 - 26 mg/dL 33 (H) Creatinine, Whole Blood (iSTAT) 0.60 - 1.30 mg/dL 0.80 Glucose, Whole Blood (iSTAT) 70 - 105 mg/dL 104 Protein, Total 6.3 - 8.0 g/dL 8.0 Ionized Calcium, WB (iSTAT) 1.12 - 1.32 mmol/L 1.22 Albumin 3.9 - 4.9 g/dL 4.3 Bilirubin, Total 0.2 - 1.3 mg/dL 0.5 Bilirubin, Direct <0.2 mg/dL <0.2 Alkaline Phosphatase 38 - 113 U/L 114 (H) ALT 10 - 54 U/L 21 AST 14 - 40 U/L 28 Anion Gap, Whole Blood (iSTAT) 0 - 15 mmol/L 13 WBC 3.70 - 11.00 k/uL 5.78 RBC 4.20 - 6.00 m/uL 4.41 Hemoglobin 13.0 - 17.0 g/dL 13.5 Hematocrit 39.0 - 51.0 % 42.6 Platelet Count 150 - 400 k/uL 162 MCV 80.0 - 100.0 fL 96.6 MCH 26.0 - 34.0 pg 30.6 MCHC 30.5 - 36.0 g/dL 31.7 MPV 9.0 - 12.7 fL 11.0 RDW-CV 11.5 - 15.0 % 14.8 DTYPE Auto Neut% % 78.4 Abs Neut (ANC) 1.45 - 7.50 k/uL 4.53 Lymph% % 9.7 Abs Lymph 1.00 - 4.00 k/uL 0.56 (L) Gaston% % 9.3 Abs Gaston <0.87 k/uL 0.54 Eosin% % 1.9 Abs Eosin <0.46 k/uL 0.11 Baso% % 0.5 Abs Baso <0.11 k/uL 0.03 Immature Gran % % 0.2 IMMATURE GRANS (ABS) <0.10 k/uL <0.03 NRBC /100 WBC 0.0 Absolute nRBC <0.01 k/uL <0.01 (H): Data is abnormally high (L): Data is abnormally low RADIOLOGY: CHEST CT WITH CONTRAST -DATE OF EXAM: Jan 22 2024 2:41PM RESULT: Limitations: None. Lines, tubes, and devices: None. Lung parenchyma , airw (more content not included)... Normal [facility] Basic metabolic panel (Bld)o n 01-22-2024 Anion gap (Bld) [Moles/Vol] 13 mmol/L Normal 0-15 [facility] Comment on above: Order Comment: Speci men Type: BLOOD SPECIMENOrdering Facility: [facility] Address: [address] [place] [address] Performed By: #### 5 ####[facility] LABCLIA [id number] [place] [address] [place] Calcium.ionized (Bld) [Moles/Vol] 1.22 mmol/L Normal 1.12-1.32 [facility] Comment on above: Order Comment: Speci men Type: BLOOD SPECIMENOrdering Facility: [facility] Address: [address] [place] [address] Result Comment: Hailey rossi note: This value represents ionized calcium not total calcium. Performed By: #### 5 ####[facility] LABCLIA [id number] [place] [id number] [place] Chloride [Moles/Vol] 100 mmol/L Normal 98-109 [facility] Comment on above: Order Comment: Speci men Type: BLOOD SPECIMENOrdering Facility: [facility] Address: [address] [place] [address] Performed By: #### 5 ####[facility] LABCLIA [id number] [place] [id number] [place] CO2 [Moles/Vol] 34 mmol/L High 24-29 [facility] Comment on above: Order Comment: Speci men Type: BLOOD SPECIMENOrdering Facility: [facility] Address: [address] [place] [address] Performed By: #### 5 ####[facility] LABIA [id number] [place] [id number] [place] Creatinine [Mass/Vol] 0.80 mg/dL Normal 0.60-1.30 [facility] Comment on above: Order Comment: Speci men Type: BLOOD SPECIMENOrdering Facility: [facility] Address: [address] [place] [address] Performed By: #### 5 ####[facility] LABIA [id number] [place] [phone] [place] GFR/1.73 sq M.predicted among non-blacks MDRD (S/P/Bld) [Vol rate/Area] 93 mL/min/1.73m??? Normal >=60 [facility] Comment on above: Order Comment: Speci men Type: BLOOD SPECIMENOrdering Facility: [facility] Address: [address] [place] [address] Result Comment: Marv mated Glomerular Filtration Rate (eGFR) is calculated using the 2020 CKD-EPI creatinine equation. This equation utilizes serum creatinine, sex, and age as parameters. The creatinine assay has traceable calibration to isotope dilution-mass spectrometry. Refer to KDIGO guidelines for clinical interpretation. In patients with unstable renal function, e.g. those with acute kidney injury, the eGFR may not accurately reflect actual GFR. Performed By: #### 5 ####[facility] LABIA [id number] [place] [phone] [place] Glucose [Mass/Vol] 104 mg/dL Normal 70-105 [facility] Comment on above: Order Comment: Speci men Type: BLOOD SPECIMENOrdering Facility: [facility] Address: [address] [place] [address] Performed By: #### 5 ####[facility] [id number] [place] [phone] [place] Potassium [Moles/Vol] 3.6 mmol/L Normal 3.5-4.9 [facility] Comment on above: Order Comment: Soumyai men Type: BLOOD SPECIMENOrdering Facility: [facility] Address: [address] [place] [address] Performed By: #### 5 ####[facility] [id number] [place] [phone] [place] Sodium [Moles/Vol] 147 mmol/L High 138-146 [facility] Comment on above: Order Comment: Speci men Type: BLOOD SPECIMENOrdering Facility: [facility] Address: [address] [place] [address] Performed By: #### 5 ####[facility] LABIA [id number] [place] [address] [place] Urea nitrogen [Mass/Vol] 33 mg/dL High 8-26 [facility] Comment on above: Order Comment: Speci men Type: BLOOD SPECIMENOrdering Facility: [facility] Address: [address] [place] [address] Performed By: #### 5 0 ####[facility] LABIA [id number] [place] [phone] [place] CBC W Auto Differential pane l (Bld)on 01-22-2024 Basophils (Bld) [#/Vol] 0.03 10*3/uL Normal <0.11 [facility] Comment on above: Order Comment: Speci men Type: BLOOD SPECIMENOrdering Facility: [facility] Address: [address] [place] [address] Performed By: #### 5 7021-8 ####[facility] LABIA [id number] [place] [phone] [place] Basophils/100 WBC (Bld) 0.5 % Normal [facility] Comment on above: Order Comment: Speci men Type: BLOOD SPECIMENOrdering Facility: [facility] Address: [address] [place] [address] Performed By: #### 5 7021-8 ####[facility] LABIA [id number] [place] [phone] [place] [facility] Differential cell count method Nom (Bld) Auto Normal [facility] Comment on above: Order Comment: Speci men Type: BLOOD SPECIMENOrdering Facility: [facility] Address: [address] [place] [address] Performed By: #### 5 7021-8 ####[facility] LABIA [id number] [place] [phone] [place] Eosinophils (Bld) [#/Vol] 0.11 10*3/uL Normal <0.46 [facility] Comment on above: Order Comment: Speci men Type: BLOOD SPECIMENOrdering Facility: [facility] Address: [address] [place] [address] Performed By: #### 5 7021-8 ####[facility] LABCLIA [id number] [place] [phone] [place] Eosinophils/100 WBC (Bld) 1.9 % Normal [facility] Comment on above: Order Comment: Speci men Type: BLOOD SPECIMENOrdering Facility: [facility] Address: [address] [place] [address] Performed By: #### 5 7021-8 ####[facility] LABIA [id number] [place] [phone] [place] Erythrocyte distribution width (RBC) [Ratio] 14.8 % Normal 11.5-15.0 [facility] Comment on above: Order Comment: Speci men Type: BLOOD SPECIMENOrdering Facility: [facility] Address: [address] [place] [address] Performed By: #### 5 7021-8 ####[facility] LABIA [id number] [place] [phone] [place] Hematocrit (Bld) [Volume fraction] 42.6 % Normal 39.0-51.0 [facility] Comment on above: Order Comment: Speci men Type: BLOOD SPECIMENOrdering Facility: [facility] Address: [address] [place] [address] Performed By: #### 5 7021-8 ####[facility] LABIA [id number] [place] [id number] [place] Hemoglobin (Bld) [Mass/Vol] 13.5 g/dL Normal 13.0-17.0 [facility] Comment on above: Order Comment: Speci men Type: BLOOD SPECIMENOrdering Facility: [facility] Address: [address] [place] [address] Performed By: #### 5 7021-8 ####[facility] LABIA [id number] [place] [phone] [place] Immature granulocytes (Bld) [#/Vol] 10*3/uL Normal <0.10 [facility] Comment on above: Order Comment: Speci men Type: BLOOD SPECIMENOrdering Facility: [facility] Address: [address] [place] [address] Performed By: #### 5 7021-8 ####[facility] LABIA [id number] [place] [id number] [place] Immature granulocytes/100 WBC (Bld) 0.2 % Normal [facility] Comment on above: Order Comment: Speci men Type: BLOOD SPECIMENOrdering Facility: [facility] Address: [address] [place] [address] Performed By: #### 5 7021-8 ####[facility] [id number] [place] [address] [place] Lymphocytes (Bld) [#/Vol] 0.56 10*3/uL Low 1.00-4.00 [facility] Comment on above: Order Comment: Speci men Type: BLOOD SPECIMENOrdering Facility: [facility] Address: [address] [place] [address] Performed By: #### 5 7021-8 ####[facility] [id number] [address] [place] [facility] Lymphocytes/100 WBC (Bld) 9.7 % Normal [facility] Comment on above: Order Comment: Speci men Type: BLOOD SPECIMENOrdering Facility: [facility] Address: [address] [place] [address] Performed By: #### 5 7021-8 ####[facility] [id number] [place] [phone] [place] MCH (RBC) [Entitic mass] 30.6 pg Normal 26.0-34.0 [facility] Comment on above: Order Comment: Speci men Type: BLOOD SPECIMENOrdering Facility: [facility] Address: [address] [place] [address] Performed By: #### 5 7021-8 ####[facility] [id number] [place] [id number] [place] MCHC (RBC) [Mass/Vol] 31.7 g/dL Normal 30.5-36.0 [facility] Comment on above: Order Comment: Speci men Type: BLOOD SPECIMENOrdering Facility: [facility] Address: [address] [place] [address] Performed By: #### 5 7021-8 ####[facility] [id number] [place] [phone] [place] MCV (RBC) [Entitic vol] 96.6 fL Normal 80.0-100.0 [facility] Comment on above: Order Comment: Speci men Type: BLOOD SPECIMENOrdering Facility: [facility] Address: [address] [place] [address] Performed By: #### 5 7021-8 ####[facility] [id number] [place] [phone] [place] Monocytes (Bld) [#/Vol] 0.54 10*3/uL Normal <0.87 [facility] Comment on above: Order Comment: Speci men Type: BLOOD SPECIMENOrdering Facility: [facility] Address: [address] [place] [address] Performed By: #### 5 7021-8 ####[facility] [id number] [place] [id number] [place] Monocytes/100 WBC (Bld) 9.3 % Normal [facility] Comment on above: Order Comment: Speci men Type: BLOOD SPECIMENOrdering Facility: [facility] Address: [address] [place] [address] Performed By: #### 5 7021-8 ####[facility] LABIA [id number] [place] [address] [place] Neutrophils (Bld) [#/Vol] 4.53 10*3/uL Normal 1.45-7.50 [facility] Comment on above: Order Comment: Speci men Type: BLOOD SPECIMENOrdering Facility: [facility] Address: [address] [place] [address] Performed By: #### 5 7021-8 ####[facility] LABIA [id number] [facility] [address] [place] Neutrophils/100 WBC (Bld) 78.4 % Normal [facility] Comment on above: Order Comment: Speci men Type: BLOOD SPECIMENOrdering Facility: [facility] Address: [address] [place] [address] Performed By: #### 5 7021-8 ####[facility] LABCLIA [id number] [place] [id number] [place] Nucleated RBC (Bld) [#/Vol] 10*3/uL Normal <0.01 [facility] Comment on above: Order Comment: Speci men Type: BLOOD SPECIMENOrdering Facility: [facility] Address: [address] [place] [address] Performed By: #### 5 7021-8 ####[facility] LABCLIA [id number] [place] [id number] [place] Nucleated RBC/100 WBC (Bld) [Ratio] 0.0 /100 WBC Normal [facility] Comment on above: Order Comment: Speci men Type: BLOOD SPECIMENOrdering Facility: [facility] Address: [address] [place] [address] Performed By: #### 5 7021-8 ####[facility] LABCLIA [id number] [place] [phone] [place] Platelet mean volume (Bld) [Entitic vol] 11.0 fL Normal 9.0-12.7 [facility] Comment on above: Order Comment: Speci men Type: BLOOD SPECIMENOrdering Facility: [facility] Address: [address] [place] [address] Performed By: #### 5 7021-8 ####[facility] LABCLIA [id number] [place] [id number] [place] Platelets (Bld) [#/Vol] 162 10*3/uL Normal 150-400 [facility] Comment on above: Order Comment: Speci men Type: BLOOD SPECIMENOrdering Facility: [facility] Address: [address] [place] [address] Performed By: #### 5 7021-8 ####[facility] LABIA [id number] [place] [address] [place] RBC (Bld) [#/Vol] 4.41 10*6/uL Normal 4.20-6.00 [facility] Comment on above: Order Comment: Speci men Type: BLOOD SPECIMENOrdering Facility: [facility] Address: [address] [place], [place] [address] Performed By: #### 5 7021-8 ####[facility] LABIA [id number] [place] [address] [place] WBC (Bld) [#/Vol] 5.78 10*3/uL Normal 3.70-11.00 [facility] Comment on above: Order Comment: Speci men Type: BLOOD SPECIMENOrdering Facility: [facility] Address: [address] [place], [place] [address] Performed By: #### 5 7021-8 ####[facility] LABIA [id number] [place] [address] [facility] CNPNon 01-22-2024 CNPN Telephone (HEMTMN) AMY SUN ([id number]) 1950 M Date Time Provider Department 01/22/24 SUSHMA BRANDON HEMTMN During your visit today, we recorded the following information about you: Allergies As of Date: 01/22/2024 (No Known Allergies) Date Reviewed: 01/22/2024 Reviewed by: Pete Contreras, RT(R) - Fully Assessed Reason for Visit: Orders [681] Primary Visit Diagnosis:History of tongue cancer [Z85.810] Order(s):HEPATIC FUNCTION PNL [SQHFP] Order #: [id number] FUTURE Prescriptions as of 01/22/2024 - nut tx, lact-reduced, iron (BOOST C) 0.09-2.25 gram-kcal/mL liqd 52 mL by FEEDING TUBE route continuous. [place] with infinity feeding pump. Flush with an additional 33oz of water daily (divided). - iv contrast (will be provided with radiology test) CT Chest W -Inject, intravenously, once for 1 dose.No IV access, insert saline lock prior to the beginning of sedation, infusion, injection of imaging exam. Discontinue saline lock post exam. If Pt. has a central line or IVAD, may access for administration according to line specific nursing protocol. Once exam is complete flush line and de-access according to line specific nursing protocol in the CT contrast administration guidelines link. - iv contrast (will be provided with radiology test) CT ABD/PEL -Inject, intravenously, once for 1 dose.No IV access, insert saline lock prior to the beginning of sedation, infusion, injection of imaging exam. Discontinue saline lock post exam. If Pt. has a central line or IVAD, may access for administration according to line specific nursing protocol. Once exam is complete flush line and de-access according to line specific nursing protocol in the CT contrast administration guidelines link. - enteric contrast (will be provided with radiology test) For CT ABD/PEL W IVCON Routine order Administer, As Directed One Time Only, via Oral, Rectal, both Oral and Rectal, Enteric Tube, Stoma or Indwelling Catheter, Enteric Contrast as designated per enteric contrast guidelines - nutritional supplement-fiber (COMPLEAT 1.5) 0.07 gram-1.5 kcal/mL liqd 80ml/hr of Compleat 1.5 continuously for 24 hours. Use 1 carton of Benecalorie daily. Flush with 200ml water four times per day. - sertraline (ZOLOFT) 25 mg tablet Take 1 tablet by mouth once daily. - furosemide (LASIX) 20 mg tablet Take 20 mg by mouth once daily. - sulindac (CLINORIL) 150 mg tablet - pilocarpine (ISOPTO CARPINE) 2 % ophthalmic solution 1 Drop. - rosuvastatin (CRESTOR) 5 mg tablet Take 5 mg by mouth once daily. - pantoprazole DR (PROTONIX) 40 mg tablet - propylene glycol/peg 400 (BLINK TEARS LUBRICATING) Eye Drops Use 1 Drop in both eyes as needed. - traMADol (ULTRAM) 50 mg tablet Take 1 tablet by mouth twice daily. - testosterone (ANDROGEL) 50 mg/5 g (1%) gel Apply 0.5 Tubes as directed once daily. 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] 03/14/2015 06/05/2016 Astigmatism of left eye [H52.202] 03/14/2015 Vitreous floaters of both eyes [H43.393] 03/14/2015 Essential hypertension [I10] 03/14/2015 Cataract, secondary obscuring vision [H26.499] 03/14/2015 04/06/2015 History of benign hyperplasia of prostate [Z87.*03/14/2015 Dry eye [H04.129] 03/14/2015 06/05/2016 Pseudophakia of right eye [Z96.1] 03/27/2015 04/06/2015 Pseudophakia of both eyes [Z96.1] 04/06/2015 Pseudophakia of left eye [Z96.1] 04/10/2015 06/05/2016 Dry eye syndrome [H04.129] 06/05/2016 Epiretinal membrane (ERM) of left eye [H35.372] 06/02/2017 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), bilateral [H3*07/01/2017 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 Hyperopia of both eyes with astigmatism and pre*06/02/[address] on [address] [R91.8] 01/15/2019 Vitelliform lesion of macula [H35.54] 11/01/2020 Aspiration into lower respiratory tract [T17.80*12/06/2022 Severe protein-calorie malnutrition (HCC) [E43] 03/02/2023 History of tongue cancer [Z85.810] 06/06/2023 S/P percutaneous endoscopic gastrostomy (PEG) t*06/06/2023 Encounter Status:Closed by MONICA DIAZ on 01/22/24 Normal [facility] CT ABD/PEL W IVCONon 024 CT ABD/PEL W IVCON * * *Final Report* * * * * * SEE BOTTOM OF REPORT FOR ADDENDED TEXT * * * DATE OF EXAM: Jan 22 2024 2:41PM OCC 0530 - CT ABD/PEL W IVCON / PROCEDURE REASON: multiple diagnoses * * * * Physician Interpretation * * * * RESULT: * * * * * * * * ORIGINAL REPORT * * * * * * * * EXAMINATION: CT ABDOMEN AND PELVIS WITH IV CONTRAST CLINICAL HISTORY: Adenocarcinoma TECHNIQUE: CT of the abdomen and pelvis was performed using standard technique, scanning from just above the dome of the diaphragm to the symphysis pubis. MQ: CTAP_3 Contrast: IV: 100 ml of Omnipaque 350 Oral: 500 ml of Omni 240 10-25ml diluted with water CT Radiation dose: Integrated Dose-length product (DLP) for this visit = 797 mGy*cm. CT Dose Reduction Employed: Automated exposure control(AEC) and iterative recon COMPARISON: 02/18/2023. RESULT: Liver: No mass. Biliary Tract: No bile duct dilation. The gallbladder appears unremarkable. Spleen: No splenomegaly. No mass. Pancreas: No mass or ductal dilation. Adrenal glands: No mass. Right kidney: Numerous renal cysts are again appreciated. An indeterminate, 1.3 cm partially exophytic lesion at the posterior aspect of the interpolar region has slightly progressed in size, previously 0.9 cm, image 62, series 3. Left kidney: Numerous renal cysts are again noted. 1.0 cm indeterminate density lesion at the upper pole is stable in size, image 47, series 3. A 6 mm indeterminate exophytic lower pole lesion is stable, image 63, series 3. GI Tract: No bowel wall thickening or dilation. Percutaneous gastric tube is noted in place. Lymph nodes: No substantial mesenteric or retroperitoneal adenopathy. Mesentery/Peritoneum: No ascites or mass. Retroperitoneum: No mass. Vasculature: - Abdominal aorta and iliac arteries: Atherosclerotic calcifications. 3.3 cm infrarenal abdominal aortic aneurysm, previously 3.2 cm. - Celiac and SMA: Patent. - Portal venous system (SMV, splenic vein, portal vein and branches): Patent. - Hepatic veins: Patent. Pelvis: No free fluid or pelvic mass. Prostate gland is moderately enlarged, unchanged. Bones/Soft Tissues: Degenerative change within the lumbar spine. No osseous destructive process. Lower Thorax: A CT examination of the chest has been performed concurrently and will be dictated separately. Client Engagement Specialist (topogram) images: No additional findings. IMPRESSION: 1. No evidence for metastatic disease to the abdomen or pelvis. 2. An indeterminate 1.3 cm right renal lesion has slightly progressed in size. Further workup with dedicated CT kidney examination is recommended. Additional indeterminate left renal lesions appear stable. 3. 3.3 cm infrarenal abdominal aortic aneurysm, minimally progressed in size. ACTIONABLE RESULT: FOLLOW-UP Acuity: Actionable Findings: Kidneys/Ureters/Bladde r Routing Code: GU_1 Recommendation: CT KIDNEY WO/W IVCON Time Frame: At the discretion of the clinical team. COMMUNICATION: Results will be communicated with the ordering provider via [employer] staff message or phone message by [facility] within 2 business days of report finalization. 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 * * * * * * * * ADDENDUM #2 * * * * * * * * ADDENDUM: An outside MRI examination of the abdomen dated 03/12/2023 has become available for comparison purposes. The above described 1.3 cm indeterminate right renal lesion appears stable to minimally progressed in size from prior MRI examination at which time it measured approximately 1.1 cm. On the MRI examination, this does not demonstrate any significant enhancement, therefore, likely related to a small, benign hemorrhagic/proteinace ous cyst. Transcribe Date/Time: Jan 26 2024 12:35P Dictated by: DEBBI BENNETT MD This examination was interpreted and the report reviewed and electronically signed by: DEBBI BENNETT MD on Jan 23 2024 10:51AM EST This document has been addended by: DEBBI BENNETT MD on Jan 26 2024 12:37PM EST Thank you for allowing us to participate in the care of your patient. [id number] Normal [facility] CT CHEST W IVCONon 4 CT CHEST W IVCON * * *Final Report* * * DATE OF EXAM: Jan 22 2024 2:41PM OCC 0539 - CT CHEST W IVCON / PROCEDURE REASON: multiple diagnoses * * * * Physician Interpretation * * * * RESULT: EXAMINATION: CHEST CT WITH CONTRAST CLINICAL HISTORY: Head and neck carcinoma Technique: Spiral CT acquisition of the chest from the thoracic inlet to the upper abdomen following IV contrast. MQ: CTCW_6 Contrast: 100 mL Omnipaque [address] Radiation dose: Integrated Dose-length product (DLP) for this visit = 797 mGy*cm CT Dose Reduction Employed: Automated exposure control(AEC) and iterative recon Comparison: CT chest 07/18/2023 RESULT: Limitations: None. Lines, tubes, and devices: None. Lung parenchyma , airways, and pleural space: A small amount of retained secretions within the trachea and right mainstem bronchus are noted. Persistent diffuse bronchial wall thickening and mucous plugging is again appreciated, most prominent within the right lower lobe. Bilateral areas of tree-in-bud opacities, most prominent within the right middle and lower lobes, slightly improved. Several newly apparent patchy groundglass opacities are appreciated, for example within the left lower lobe, image 139-160, within the posterior right upper lobe, image 63, series 4. The previously identified partially consolidative opacity at the lateral aspect of the superior segment of the right lower lobe has resolved, however, a newly apparent similar in appearance opacity is appreciated more medially within the superior segment of the right lower lobe, image 96, series 4. Lower neck, lymph nodes, and mediastinum: The visualized thyroid gland is stable. No substantial supraclavicular or axillary lymphadenopathy is identified. Mild subcarinal adenopathy has improved, now measuring approximately 1.9 x 1.0 cm, previously 2.1 x 1.3 cm. Just inferior to this, a 1.0 cm in short axis paraesophageal lymph node has decreased in size. No substantial mediastinal or hilar adenopathy is identified elsewhere. Heart, pericardium, and thoracic vessels: The thoracic aorta is normal in caliber. No substantial pericardial effusion. Bones/Soft Tissues: Degenerative change within the thoracic spine. No osseous destructive process. Upper Abdomen: A CT examination of the abdomen has been performed concurrently and will be dictated separately. Client Engagement Specialist (topogram) images: No additional findings. IMPRESSION: 1. Improved appearance to bilateral areas of tree-in-bud opacities, most prominent within the right middle and lower lobes. 2. Several newly apparent bilateral areas of groundglass/consolidat kimmy opacities are identified, as detailed above, likely infectious/inflammator y in nature. Correlation with continued follow-up examinations is recommended. 3. Improved appearance to mildly prominent mediastinal lymph nodes, as above. Transcribe Date/Time: Jan 23 2024 8:34A Dictated by: DEBBI BENNETT MD This examination was interpreted and the report reviewed and electronically signed by: DEBBI BENNETT MD on Jan 23 2024 10:50AM EST Thank you for allowing us to participate in the care of your patient. [id number] Normal [facility] Hepatic function 2000 panelo n 01-22-2024 Albumin [Mass/Vol] 4.3 g/dL Normal 3.9-4.9 [facility] Comment on above: Order Comment: Speci men Type: BLOOD SPECIMENOrdering Facility: [facility] Address: [address] [place] [address] Performed By: #### 2 4325-3 ####[facility] LABCLIA [id number] [place] [address] [place] ALP [Catalytic activity/Vol] 114 U/L High 38-113 [facility] Comment on above: Order Comment: Speci men Type: BLOOD SPECIMENOrdering Facility: [facility] Address: [address] [place] [address] Performed By: #### 2 4325-3 ####[facility] LABCLIA [id number] [place] [address] [place] ALT [Catalytic activity/Vol] 21 U/L Normal 10-54 [facility] Comment on above: Order Comment: Speci men Type: BLOOD SPECIMENOrdering Facility: [facility] Address: [address] [place] [address] Performed By: #### 2 4325-3 ####[facility] LABCLIA [id number] [place] [address] [place] AST [Catalytic activity/Vol] 28 U/L Normal 14-40 [facility] Comment on above: Order Comment: Speci men Type: BLOOD SPECIMENOrdering Facility: [facility] Address: [address] [place] [address] Performed By: #### 2 4325-3 ####[facility] LABIA [id number] [place] [address] [place] Bilirubin [Mass/Vol] 0.5 mg/dL Normal 0.2-1.3 [facility] Comment on above: Order Comment: Speci men Type: BLOOD SPECIMENOrdering Facility: [facility] Address: [address] [place] [address] Performed By: #### 2 4325-3 ####[facility] LABIA [id number] [place] [address] [place] Bilirubin.conjugated [Mass/Vol] mg/dL Normal <0.2 [facility] Comment on above: Order Comment: Speci men Type: BLOOD SPECIMENOrdering Facility: [facility] Address: [address] [place] [address] Performed By: #### 2 4325-3 ####[facility] [id number] [place] [address] [place] Protein [Mass/Vol] 8.0 g/dL Normal 6.3-8.0 [facility] Comment on above: Order Comment: Speci men Type: BLOOD SPECIMENOrdering Facility: [facility] Address: [address] [place] [address] Performed By: #### 2 4325-3 ####[facility] LABIA [id number] [place] [address] [place] CNPFalguni 01-21-2024 CNPN Telephone (HEMTMN) AMY SUN ([id number]) 1950 M Date Time Provider Department 01/21/24 SHAKIR ARCOS During your visit today, we recorded the following information about you: Shakir Arcos RN 01/21/2024 2:55 PM Signed Need for iStat BMP due to chemistry analyzer being down on 01/22/24 for maintenance. Shakir Arcos RN Allergies As of Date: 01/21/2024 (No Known Allergies) Date Reviewed: 01/14/2024 Reviewed by: Pete Contreras, RT(R) - Fully Assessed Reason for Visit: Orders [681] Primary Visit Diagnosis:History of tongue cancer [Z85.810] Other Visit Diagnosis:Erythrocytos is [D75.1] Order(s):ISTAT BMP [SQISTBMP] Order #: [id number] FUTURE Prescriptions as of 01/21/2024 - nut tx, lact-reduced, iron (BOOST C) 0.09-2.25 gram-kcal/mL liqd 52 mL by FEEDING TUBE route continuous. [place] with infinity feeding pump. Flush with an additional 33oz of water daily (divided). - iv contrast (will be provided with radiology test) CT Chest W -Inject, intravenously, once for 1 dose.No IV access, insert saline lock prior to the beginning of sedation, infusion, injection of imaging exam. Discontinue saline lock post exam. If Pt. has a central line or IVAD, may access for administration according to line specific nursing protocol. Once exam is complete flush line and de-access according to line specific nursing protocol in the CT contrast administration guidelines link. - iv contrast (will be provided with radiology test) CT ABD/PEL -Inject, intravenously, once for 1 dose.No IV access, insert saline lock prior to the beginning of sedation, infusion, injection of imaging exam. Discontinue saline lock post exam. If Pt. has a central line or IVAD, may access for administration according to line specific nursing protocol. Once exam is complete flush line and de-access according to line specific nursing protocol in the CT contrast administration guidelines link. - enteric contrast (will be provided with radiology test) For CT ABD/PEL W IVCON Routine order Administer, As Directed One Time Only, via Oral, Rectal, both Oral and Rectal, Enteric Tube, Stoma or Indwelling Catheter, Enteric Contrast as designated per enteric contrast guidelines - nutritional supplement-fiber (COMPLEAT 1.5) 0.07 gram-1.5 kcal/mL liqd 80ml/hr of Compleat 1.5 continuously for 24 hours. Use 1 carton of Benecalorie daily. Flush with 200ml water four times per day. - sertraline (ZOLOFT) 25 mg tablet Take 1 tablet by mouth once daily. - furosemide (LASIX) 20 mg tablet Take 20 mg by mouth once daily. - sulindac (CLINORIL) 150 mg tablet - pilocarpine (ISOPTO CARPINE) 2 % ophthalmic solution 1 Drop. - rosuvastatin (CRESTOR) 5 mg tablet Take 5 mg by mouth once daily. - pantoprazole DR (PROTONIX) 40 mg tablet - propylene glycol/peg 400 (BLINK TEARS LUBRICATING) Eye Drops Use 1 Drop in both eyes as needed. - traMADol (ULTRAM) 50 mg tablet Take 1 tablet by mouth twice daily. - testosterone (ANDROGEL) 50 mg/5 g (1%) gel Apply 0.5 Tubes as directed once daily. 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] 03/14/2015 06/05/2016 Astigmatism of left eye [H52.202] 03/14/2015 Vitreous floaters of both eyes [H43.393] 03/14/2015 Essential hypertension [I10] 03/14/2015 Cataract, secondary obscuring vision [H26.499] 03/14/2015 04/06/2015 History of benign hyperplasia of prostate [Z87.*03/14/2015 Dry eye [H04.129] 03/14/2015 06/05/2016 Pseudophakia of right eye [Z96.1] 03/27/2015 04/06/2015 Pseudophakia of both eyes [Z96.1] 04/06/2015 Pseudophakia of left eye [Z96.1] 04/10/2015 06/05/2016 Dry eye syndrome [H04.129] 06/05/2016 Epiretinal membrane (ERM) of left eye [H35.372] 06/02/2017 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), bilateral [H3*07/01/2017 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 Hyperopia of both eyes with astigmatism and pre*06/02/[address] [R91.8] 01/15/2019 Vitelliform lesion of macula [H35.54] 11/01/2020 Aspiration into lower respiratory tract [T17.80*12/06/2022 Severe protein-calorie malnutrition (HCC) [E43] 03/02/2023 History of tongue cancer [Z85.810] 06/06/2023 S/P percutaneous endoscopic gastrostomy (PEG) t*06/06/2023 Encounter Status:Closed by SHAKIR ARCOS on 01/21/24 Normal [facility] APTT Heparin Coverageon aPTT Coag (Bld) [Time] 33 s [facility] Interpretation and review of laboratory results Normal [facility] Therapeutic range fo r APTT's is 68 - 104 seconds [facility] Basic metabolic 2000 panelon 12-25-2023 Anion gap [Moles/Vol] 16 mmol/L 10 - 2 0 mmol/L [facility] Calcium [Mass/Vol] 9.4 mg/dL 8.4 - 10. 2 mg/dL [facility] Chloride [Moles/Vol] 104 mmol/L 98 - 10 8 mmol/L [facility] Creatinine [Mass/Vol] 0.63 mg/dL Low 0.80 - 1.30 mg/dL [facility] GFR/1.73 sq M.predicted CKD-EPI (S/P/Bld) [Vol rate/Area] 100 - PINF [facility] Comment on above: Estimated GFR was ca lculated using the 2020 CKD-EPI creatinine equation. Glucose [Mass/Vol] 118 mg/dL High 65 - 99 mg/dL [facility] [Moles/Vol] 33 mmol/L High 21 - 32 mmol/L [facility] Interpretation and review of laboratory results Abnormal [facility] Potassium [Moles/Vol] 4.1 mmol/L 3.5 - 5.1 mmol/L [facility] Sodium [Moles/Vol] 149 mmol/L High 135 - 145 mmol/L [facility] Urea nitrogen [Mass/Vol] 27 mg/dL High 8 - 25 mg/dL [facility] Urea nitrogen/Creatinine [Mass ratio] 42.9 mg/mg High 10.0 - 20.0 [facility] y Services has implemented the eGFR calculation approach that does not have a coefficient for race that conforms to the NKF-ASN Task Force Recommendations. [facility] CBC Auto Differentialon 11-0 Basophils (Bld) [#/Vol] 0.03 10*3/uL [facility] Basophils/100 WBC (Bld) 0.4 % [facility] Eosinophils (Bld) [#/Vol] 0.14 10*3/uL [facility] Eosinophils/100 WBC (Bld) 2.1 % [facility] Erythrocyte distribution width (RBC) [Entitic vol] 14.5 % 11.6 - 14.8 % [facility] Hematocrit (Bld) [Volume fraction] 42.1 % 41.0 - 53.0 % [facility] Hemoglobin (Bld) [Mass/Vol] 13.1 g/dL Low 13.5 - 17.5 g/dL [facility] Immature granulocytes (Bld) [#/Vol] 0.03 10*3/uL [facility] Immature granulocytes/100 WBC (Bld) 0.4 % [facility] Comment on above: The IG parameter is the percentage of metamyelocytes, myelocytes and promyelocytes. An immature granulocyte count (IG) of 1% or more suggests the possibility of infection, an IG count of 3% is very likely related to an infection. Interpretation and review of laboratory results Abnormal [facility] Lymphocytes (Bld) [#/Vol] 0.59 10*3/uL Low [facility] Lymphocytes/100 WBC (Bld) 8.8 % [facility] MCH (RBC) [Entitic mass] 29.9 pg 26.0 - 34.0 pg [facility] MCHC (RBC) [Mass/Vol] 31.1 g/dL 31.0 - 37.0 g/dL [facility] MCV (RBC) [Entitic vol] 96.1 fL 80.0 - 100.0 fL [facility] Monocytes (Bld) [#/Vol] 0.87 10*3/uL [facility] Monocytes/100 WBC (Bld) 13 % [facility] Neutrophils (Bld) [#/Vol] 5.05 10*3/uL [facility] Neutrophils/100 WBC (Bld) 75.3 % [facility] Nucleated RBC (Bld) [#/Vol] 0 10*3/uL [facility] Nucleated RBC/100 WBC (Bld) [Ratio] 0 % [facility] Platelet mean volume (Bld) [Entitic vol] 10.8 fL 9.4 - 12.4 fL [facility] Platelets (Bld) [#/Vol] 251 10*3/uL [facility] RBC (Bld) [#/Vol] 4.38 10*6/uL Low [facility] ealth WBC (Bld) [#/Vol] 6.71 10*3/uL [facility] eah [facility] Magnesium Levelon 12-25-2023 Magnesium [Mass/Vol] 2.3 mg/dL 1.6 - 2 .4 mg/dL [facility] Magnesium [Mass/Vol]on 12-24 Interpretation and review of laboratory results Normal [facility] No Panel Informationon 12-24 [facility] APTT Heparin CoverageOrdered By: Jim Conklin on 12-24-2023 aPTT Coag (Bld) [Time] 90 s High [facility] Interpretation and review of laboratory results Abnormal [facility] Therapeutic range fo r APTT's is 68 - 104 seconds [facility] Basic metabolic 2000 panelon 12-24-2023 Anion gap [Moles/Vol] 14 mmol/L 10 - 2 0 mmol/L [facility] Calcium [Mass/Vol] 9.1 mg/dL 8.4 - 10. 2 mg/dL [facility] Chloride [Moles/Vol] 102 mmol/L 98 - 10 8 mmol/L [facility] Creatinine [Mass/Vol] 0.62 mg/dL Low 0.80 - 1.30 mg/dL [facility] GFR/1.73 sq M.predicted CKD-EPI (S/P/Bld) [Vol rate/Area] 101 - PINF [facility] Comment on above: Estimated GFR was ca lculated using the 2020 CKD-EPI creatinine equation. Glucose [Mass/Vol] 139 mg/dL High 65 - 99 mg/dL [facility] [Moles/Vol] 32 mmol/L 21 - 32 mmol/L [facility] Interpretation and review of laboratory results Abnormal [facility] Potassium [Moles/Vol] 3.9 mmol/L 3.5 - 5.1 mmol/L [facility] Sodium [Moles/Vol] 144 mmol/L 135 - 145 mmol/L [facility] Urea nitrogen [Mass/Vol] 26 mg/dL High 8 - 25 mg/dL [facility] Urea nitrogen/Creatinine [Mass ratio] 41.9 mg/mg High 10.0 - 20.0 [facility] has implemented the eGFR calculation approach that does not have a coefficient for race that conforms to the NKF-ASN Task Force Recommendations. [facility] CBC Auto Differentialon Basophils (Bld) [#/Vol] 0.04 10*3/uL [facility] Basophils/100 WBC (Bld) 0.5 % [facility] Eosinophils (Bld) [#/Vol] 0.11 10*3/uL [facility] Eosinophils/100 WBC (Bld) 1.3 % [facility] Erythrocyte distribution width (RBC) [Entitic vol] 14.5 % 11.6 - 14.8 % [facility] Hematocrit (Bld) [Volume fraction] 39.3 % Low 41.0 - 53.0 % [facility] Hemoglobin (Bld) [Mass/Vol] 12.6 g/dL Low 13.5 - 17.5 g/dL [facility] Immature granulocytes (Bld) [#/Vol] 0.03 10*3/uL [facility] Immature granulocytes/100 WBC (Bld) 0.4 % [facility] Comment on above: The IG parameter is the percentage of metamyelocytes, myelocytes and promyelocytes. An immature granulocyte count (IG) of 1% or more suggests the possibility of infection, an IG count of 3% is very likely related to an infection. Interpretation and review of laboratory results Abnormal [facility] Lymphocytes (Bld) [#/Vol] 0.61 10*3/uL Low [facility] Lymphocytes/100 WBC (Bld) 7.2 % [facility] MCH (RBC) [Entitic mass] 30.3 pg 26.0 - 34.0 pg [facility] MCHC (RBC) [Mass/Vol] 32.1 g/dL 31.0 - 37.0 g/dL [facility] MCV (RBC) [Entitic vol] 94.5 fL 80.0 - 100.0 fL [facility] Monocytes (Bld) [#/Vol] 0.94 10*3/uL High [facility] Monocytes/100 WBC (Bld) 11.1 % [facility] Neutrophils (Bld) [#/Vol] 6.75 10*3/uL [facility] Neutrophils/100 WBC (Bld) 79.5 % [facility] Nucleated RBC (Bld) [#/Vol] 0 10*3/uL [facility] Nucleated RBC/100 WBC (Bld) [Ratio] 0 % [facility] Platelet mean volume (Bld) [Entitic vol] 11.1 fL 9.4 - 12.4 fL [facility] Platelets (Bld) [#/Vol] 236 10*3/uL [facility] RBC (Bld) [#/Vol] 4.16 10*6/uL Low [facility] WBC (Bld) [#/Vol] 8.48 10*3/uL [facility] Echo completeOrdered By: Ena Gauthier on 12-24-2023 Aortic valve area 2.27922 cm [facility] Work Phone: AV mean gradient 3.35836 mmHg [facility] Work Phone: AV peak gradient 6.44318 mmHg [facility] Work Phone: EF [phone] [facility] Work Phone: [facility] Work Phone: Echo completeon 12-24-2023 Patient Info Name: AMY SUN Age: 73 years : 1950 Gender: Male Ht: 185 cm Wt: 73 kg BSA: 1.94 m2 HR: 68 bpm BP: 122 / 76 mmHg Heart Rhythm: Sinus Rhythm Technical Quality: Fair Exam Date: 12/23/2023 6:08 AM Patient Status: Inpatient Fishing Vessel Mate: West, Kimberli, DENA Exam Type: ECHOCARDIOGRAM COMPLETE Study Info Indications - Pulmonary embolism Z86.711 - Personal history of pulmonary embolism Referring Physician: AMAURI FOY ; [id number] BMI: 21.37 kg/m2 Summary 1. Left ventricular systolic function is normal with an ejection fraction by Biplane Method of Discs of 68 %. 2. Right ventricular size and systolic function are normal. 3. The left ventricular diastolic function is normal. 4. No hemodynamically significant valvular disease. 5. There is no pulmonary hypertension, estimated right ventricle systolic pressure is 33 mmHg. History/Risk Factors Renal Disease: Yes Tobacco Use: Former History/Risk Factors RIGHT PULMONARY EMBOLUS. 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 Procedure(s): Complete two-dimensional, color flow and Doppler transthoracic echocardiogram is performed. Left Ventricle Left ventricular chamber dimension is normal. Left ventricular systolic function is normal with an ejection fraction by Biplane Method of Discs of 68 %. Normal left ventricular mass. Left ventricular segmental wall motion is normal. The left ventricular diastolic function is normal. Right Ventricle Right ventricular size and systolic function are normal. Left Atria Left atrial chamber is normal with a left atrial volume index of 26 ml/m2 by BP MOD. Right Atria Right atrial chamber dimension is normal. Aortic Valve The aortic valve is trileaflet. There is no aortic valve sclerosis. There is no aortic valve stenosis. There is no aortic valve regurgitation. Pulmonic Valve The pulmonic valve is normal. There is no pulmonic valve stenosis. There is trace pulmonic regurgitation. Mitral Valve The mitral valve has normal leaflets. There is no mitral valve stenosis. There is no mitral valve regurgitation. Tricuspid Valve The tricuspid valve leaflets are normal. There is no significant tricuspid valve stenosis. There is trace tricuspid valve regurgitation. There is no pulmonary hypertension, estimated right ventricle systolic pressure is 33 mmHg. Pericardium/Pleural There is no pericardial effusion. Inferior Vena Cava Normal inferior vena cava with >50% collapse upon inspiration consistent with normal right atrial pressure. Aorta The aortic measurements are indexed to age and body surface area. The aortic root is normal measuring 3.4 cm with an index of 1.7 cm/m2. The proximal ascending aorta is normal measuring 3.4 cm with an index of 1.7 cm/m2. Wall Motion Scoring Wall Motion Scoring Index: 1.00 Left Ventricular Outflow Tract ---- Name Value Normal ---- LVOT 2D ---- LVOT Diameter 2.2 cm LVOT Doppler ---- LVOT Peak Velocity 1.1 m/s LVOT Peak Gradient 4 mmHg LVOT Mean Gradient 2 mmHg LVOT VTI 22 cm LVOT VTI/AV VTI Ratio 0.8 LVOT Stroke Volume 81 ml LVOT Stroke Index 41.98 ml/m2 Pulmonic Valve ---- Name Value Normal ---- RVOT Doppler ---- RVOT Peak Velocity 63 cm/s RVOT Peak Gradient 2 mmHg RVOT Mean Gradient 1 mmHg RVOT VTI 15 cm PV Doppler ---- PV Peak Velocity 0.88 m/s PV Peak Gradient 3 mmHg PV Mean Gradient 2 mmHg PV VTI 18 cm Mitral Valve ---- Name Valu (more content not included)... FUJI SYNAPSE CV Carmen Gauthier MD - 12/24/2023 Patient Info Name: AMY SUN Age: 73 years : 1950 Gender: Male Ht: 185 cm Wt: 73 kg BSA: 1.94 m2 HR: 68 bpm BP: 122 / 76 mmHg Heart Rhythm: Sinus Rhythm Technical Quality: Fair Exam Date: 12/23/2023 6:08 AM Patient Status: Inpatient Fishing Vessel Mate: Kimberli Dodson RCDS Exam Type: ECHOCARDIOGRAM COMPLETE Study Info Indications - Pulmonary embolism Z86.711 - Personal history of pulmonary embolism Referring Physician: AMAURI FOY ; [id number] BMI: 21.37 kg/m2 Summary 1. Left ventricular systolic function is normal with an ejection fraction by Biplane Method of Discs of 68 %. 2. Right ventricular size and systolic function are normal. 3. The left ventricular diastolic function is normal. 4. No hemodynamically significant valvular disease. 5. There is no pulmonary hypertension, estimated right ventricle systolic pressure is 33 mmHg. History/Risk Factors Renal Disease: Yes Tobacco Use: Former History/Risk Factors RIGHT PULMONARY EMBOLUS. 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 Procedure(s): Complete two-dimensional, color flow and Doppler transthoracic echocardiogram is performed. Left Ventricle Left ventricular chamber dimension is normal. Left ventricular systolic function is normal with an ejection fraction by Biplane Method of Discs of 68 %. Normal left ventricular mass. Left ventricular segmental wall motion is normal. The left ventricular diastolic function is normal. Right Ventricle Right ventricular size and systolic function are normal. Left Atria Left atrial chamber is normal with a left atrial volume index of 26 ml/m2 by BP MOD. Right Atria Right atrial chamber dimension is normal. Aortic Valve The aortic valve is trileaflet. There is no aortic valve sclerosis. There is no aortic valve stenosis. There is no aortic valve regurgitation. Pulmonic Valve The pulmonic valve is normal. There is no pulmonic valve stenosis. There is trace pulmonic regurgitation. Mitral Valve The mitral valve has normal leaflets. There is no mitral valve stenosis. There is no mitral valve regurgitation. Tricuspid Valve The tricuspid valve leaflets are normal. There is no significant tricuspid valve stenosis. There is trace tricuspid valve regurgitation. There is no pulmonary hypertension, estimated right ventricle systolic pressure is 33 mmHg. Pericardium/Pleural There is no pericardial effusion. Inferior Vena Cava Normal inferior vena cava with >50% collapse upon inspiration consistent with normal right atrial pressure. Aorta The aortic measurements are indexed to age and body surface area. The aortic root is normal measuring 3.4 cm with an index of 1.7 cm/m2. The proximal ascending aorta is normal measuring 3.4 cm with an index of 1.7 cm/m2. Wall Motion Scoring Wall Motion Scoring Index: 1.00 Left Ventricular Outflow Tract ---- Name Value Normal ---- LVOT 2D ---- LVOT Diameter 2.2 cm LVOT Doppler ---- LVOT Peak Velocity 1.1 m/s LVOT Peak Gradient 4 mmHg LVOT Mean Gradient 2 mmHg LVOT VTI 22 cm LVOT VTI/AV VTI Ratio 0.8 LVOT Stroke Volume 81 ml LVOT Stroke Index 41.98 ml/m2 Pulmonic Valve ---- Name Value Normal ---- RVOT Doppler ---- RVOT Peak Velocity 63 cm/s RVOT Peak Gradient 2 mmHg RVOT Mean Gradient 1 mmHg RVOT VTI 15 cm PV Doppler ---- PV Peak Velocity 0.88 m/s PV Peak Gradient 3 mmHg PV Mean Gradient 2 mmHg PV VTI 18 cm Mitral Valve ---- Name Value Normal ---- MV Doppler ---- MV Peak Velocity 1.18 m/s MV Peak Gradient 6 mmHg MV Mean Gradient 1 mmHg MV VTI 24 cm MV Decel [place] 329 cm/s2 MV PHT 65 ms MV Area (PHT) 3.4 cm2 4.0-5.0 MV Area (Cont Eq VTI) 3.4 cm2 MV Area Index (Cont Eq VTI) 1.76 cm2/m2 MV DVI 1.06 MV Diastolic Function ---- MV E Peak Velocity 0.74 m/s MV A Peak Velocity 1.16 m/s MV E/A 0.6 MV Decel Time 225 ms MV Annular TDI ---- (more content not included)... [facility] Magnesium Levelon 12-24-2023 Magnesium [Mass/Vol] 2.2 mg/dL 1.6 - 2 .4 mg/dL [facility] Magnesium [Mass/Vol]on 12-23 Interpretation and review of laboratory results Normal [facility] NT Pro BNPon 12-24-2023 Natriuretic peptide.B prohormone N-Terminal [Mass/Vol] 154 pg/mL 0 - 300 pg/mL [facility] Natriuretic peptide.B prohor genna N-Terminal [Mass/Vol]on 12-24-2023 Interpretation and review of laboratory results Normal [facility] Pride Study Cut-offs Rule In: < /= 50 Years >450 pg/mL 51 Years - 75 Years >900 pg/mL 76 Years - 99 Years >1800 pg/mL Rule Out: All patients <300 pg/mL [facility] XR Chest PA and Abdomen APon 12-24-2023 Somewhat low lung volumes. Mild interstitial changes. No focal infiltrates. Workstation ID: [id number] [employer] EXAMINATION: XR CHEST PA/AP 12/24/2023 9:04 am HISTORY: ORDERING SYSTEM PROVIDED HISTORY: desat, TECHNOLOGIST PROVIDED HISTORY: Illness/Other Reason for exam: destat Cancer History: tongue cancer Surgery, RadiationHistory: yes Encounter Type: Initial Additional signs and symptoms: . ORDERING SYSTEM PROVIDED DIAGNOSIS CODES: COMPARISON: 10/15/2023 FINDINGS: Heart size and pulmonary vasculature are normal. Lung volumes are somewhat low. Mild bilateral interstitial changes may be chronic. No focal infiltrates. No pleural fluid or pneumothorax. Bony structures are unremarkable. [employer] Jethro Curran MD - 12/24/2023 EXAMINATION: XR CHEST PA/AP 12/24/2023 9:04 am HISTORY: ORDERING SYSTEM PROVIDED HISTORY: desat, TECHNOLOGIST PROVIDED HISTORY: Illness/Other Reason for exam: destat Cancer History: tongue cancer Surgery, RadiationHistory: yes Encounter Type: Initial Additional signs and symptoms: . ORDERING SYSTEM PROVIDED DIAGNOSIS CODES: COMPARISON: 10/15/2023 FINDINGS: Heart size and pulmonary vasculature are normal. Lung volumes are somewhat low. Mild bilateral interstitial changes may be chronic. No focal infiltrates. No pleural fluid or pneumothorax. Bony structures are unremarkable. IMPRESSION: Somewhat low lung volumes. Mild interstitial changes. No focal infiltrates. Workstation ID: [id number] [facility] Radiology Study observation (narrative) [facility] XR Chest PA and Abdomen APOr dered By: Jethro Curran on 12-24-2023 [facility] Work Phone: APTT Heparin CoverageOrdered By: Filipe Victoria on 12-23-2023 aPTT Coag (Bld) [Time] 98 s High [facility] Interpretation and review of laboratory results Abnormal [facility] Therapeutic range fo r APTT's is 68 - 104 seconds [facility] APTT Heparin CoverageOrdered By: Ismael Saldivar on 12-23-2023 aPTT Coag (Bld) [Time] 98 s High [facility] Interpretation and review of laboratory results Abnormal [facility] Therapeutic range fo r APTT's is 68 - 104 seconds [facility] Basic metabolic 2000 panelon 12-23-2023 Anion gap [Moles/Vol] 12 mmol/L 10 - 2 0 mmol/L [facility] Calcium [Mass/Vol] 8.5 mg/dL 8.4 - 10. 2 mg/dL [facility] Chloride [Moles/Vol] 101 mmol/L 98 - 10 8 mmol/L [facility] Creatinine [Mass/Vol] 0.72 mg/dL Low 0.80 - 1.30 mg/dL [facility] GFR/1.73 sq M.predicted CKD-EPI (S/P/Bld) [Vol rate/Area] 96 - PINF [facility] Comment on above: Estimated GFR was ca lculated using the 2020 CKD-EPI creatinine equation. Glucose [Mass/Vol] 100 mg/dL High 65 - 99 mg/dL [facility] [Moles/Vol] 33 mmol/L High 21 - 32 mmol/L [facility] Interpretation and review of laboratory results Abnormal [facility] Potassium [Moles/Vol] 3.8 mmol/L 3.5 - 5.1 mmol/L [facility] Sodium [Moles/Vol] 142 mmol/L 135 - 145 mmol/L [facility] Urea nitrogen [Mass/Vol] 26 mg/dL High 8 - 25 mg/dL [facility] Urea nitrogen/Creatinine [Mass ratio] 36.1 mg/mg High 10.0 - 20.0 [facility] Laborator y Services has implemented the eGFR calculation approach that does not have a coefficient for race that conforms to the NKF-ASN Task Force Recommendations. [facility] CBC Auto Differentialon 110 Basophils (Bld) [#/Vol] 0.04 10*3/uL [facility] Basophils/100 WBC (Bld) 0.5 % [facility] Eosinophils (Bld) [#/Vol] 0.02 10*3/uL [facility] Eosinophils/100 WBC (Bld) 0.2 % [facility] Erythrocyte distribution width (RBC) [Entitic vol] 14.8 % 11.6 - 14.8 % [facility] Hematocrit (Bld) [Volume fraction] 38.3 % Low 41.0 - 53.0 % [facility] Hemoglobin (Bld) [Mass/Vol] 12.1 g/dL Low 13.5 - 17.5 g/dL [facility] Immature granulocytes (Bld) [#/Vol] 0.03 10*3/uL [facility] Immature granulocytes/100 WBC (Bld) 0.4 % [facility] Comment on above: The IG parameter is the percentage of metamyelocytes, myelocytes and promyelocytes. An immature granulocyte count (IG) of 1% or more suggests the possibility of infection, an IG count of 3% is very likely related to an infection. Interpretation and review of laboratory results Abnormal [facility] Lymphocytes (Bld) [#/Vol] 0.6 10*3/uL Low [facility] Lymphocytes/100 WBC (Bld) 7.1 % [facility] MCH (RBC) [Entitic mass] 30.1 pg 26.0 - 34.0 pg [facility] MCHC (RBC) [Mass/Vol] 31.6 g/dL 31.0 - 37.0 g/dL [facility] MCV (RBC) [Entitic vol] 95.3 fL 80.0 - 100.0 fL [facility] Monocytes (Bld) [#/Vol] 0.92 10*3/uL High [facility] Monocytes/100 WBC (Bld) 10.8 % [facility] Neutrophils (Bld) [#/Vol] 6.88 10*3/uL [facility] Neutrophils/100 WBC (Bld) 81 % [facility] Nucleated RBC (Bld) [#/Vol] 0 10*3/uL [facility] Nucleated RBC/100 WBC (Bld) [Ratio] 0 % [facility] Platelet mean volume (Bld) [Entitic vol] 10.6 fL 9.4 - 12.4 fL [facility] Platelets (Bld) [#/Vol] 195 10*3/uL [facility] RBC (Bld) [#/Vol] 4.02 10*6/uL Low [facility] WBC (Bld) [#/Vol] 8.49 10*3/uL [facility] Legionella Antigen, UrineOrd ered By: Elda Colby on 12-23-2023 Interpretation and review of laboratory results Normal [facility] L. pneumophila Ag Ql (U) Negative Negative for Legionella antigen [facility] Comment on above: COMMENT: Results may be affected if patient is on diuretics. INTERPRETATION OF RESULTS: Test detects Legionella pneumophilia serogroup 1 antigens in urine. Legionnaires disease cannot be ruled out since other serogroups and species may also cause disease. [facility] MRSA DNA Amplified ProbeOrde red By: Ines Cisneros on 12-23-2023 MRSA DNA ROBERTA+probe Ql (Unsp spec) Negative Not Detected, MRSA NEGATIVE [facility] MRSA DNA ROBERTA+probe Ql (Unsp spec)Ordered By: Ines Cisneros on 12-23-2023 Interpretation and review of laboratory results Normal [facility] S. pneumoniae Urine Antigeno n 12-23-2023 Interpretation and review of laboratory results Normal [facility] S. pneumoniae Ag Ql (U) Negative Presumptive Negative for Pneumococcal pneumoniae [facility] Comment on above: A negative result johnston ggests no current or recent pneumococcal infection. A negative result does not rule out Streptococcus pneumoniae infection since the antigen present in the sample may be below the detection limit of the test. [facility] Ultrasound duplex venous leg s bilaton 12-23-2023 Patient Info Name: AMY SUN Age: 73 years : 1950 Gender: Male Exam Date: 12/23/2023 8:58 AM Patient Status: Inpatient Wrapper Caser: Sakshi Adler RDMS (AB), RVS Referring Physician: AMAURI FOY ; Indications I26.09 - Other pulmonary embolism with acute cor pulmonale - Patient with PE Procedure Description 22175 Duplex examination using B-mode, color and spectral Doppler of extremity veins including responses to compression and other maneuvers; complete bilateral study. Conclusions * No evidence of deep or superficial vein thrombosis in the lower extremities bilaterally. * Hypoechoic structure noted in the left popliteal fossa measuring 2.4 x 2.8 x 1.1 cm. Risk Factors Patient has a history of hypertension, hyperlipidemia, malignancy, tobacco use-previous and PE. . Report Signatures Finalized by Sergio Schneider MD on 12/23/2023 11:25 AM External Iliac: - External Iliac: Normal External Iliac: Normal External Iliac: - External Iliac: Normal External Iliac: Normal Common Femoral: Complete Common Femoral: Normal Common Femoral: Normal Common Femoral: Complete Common Femoral: Normal Common Femoral: Normal Femoral: Complete Femoral: Complete Femoral: Normal Femoral: Normal Femoral: Normal Femoral: Normal Peroneal: Complete Peroneal: Complete Peroneal: - Peroneal: - Peroneal: - Peroneal: - Profunda Femoral: Complete Profunda Femoral: - Profunda Femoral: Complete Profunda Femoral: - Profunda Femoral: - Popliteal: Complete Popliteal: Complete Popliteal: Normal Popliteal: Normal Popliteal: Normal Popliteal: Normal Posterior Tibial: Complete Posterior Tibial: Complete Posterior Tibial: - Posterior Tibial: - Posterior Tibial: - Posterior Tibial: - Gastrocnemius: - Gastrocnemius: - Gastrocnemius: - Gastrocnemius: - Gastrocnemius: - Gastrocnemius: - Soleal: - Soleal: - Soleal: - Soleal: - Soleal: - Soleal: - Great Saphenous: Complete Great Saphenous: Complete Great Saphenous: Normal Great Saphenous: Normal Great Saphenous: Normal Great Saphenous: Normal Small Saphenous: - Small Saphenous: - Small Saphenous: - Small Saphenous: - Small Saphenous: - Small Saphenous: - - FUJI SYNAPSE Sergio Rivera MD - 12/23/2023 Patient Info Name: AMY SUN Age: 73 years : 1950 Gender: Male Exam Date: 12/23/2023 8:58 AM Patient Status: Inpatient Wrapper Caser: Sakshi Adler RDMS (AB), RVS Referring Physician: AMAURI FOY ; Indications I26.09 - Other pulmonary embolism with acute cor pulmonale - Patient with PE Procedure Description [id number] Duplex examination using B-mode, color and spectral Doppler of extremity veins including responses to compression and other maneuvers; complete bilateral study. Conclusions * No evidence of deep or superficial vein thrombosis in the lower extremities bilaterally. * Hypoechoic structure noted in the left popliteal fossa measuring 2.4 x 2.8 x 1.1 cm. Risk Factors Patient has a history of hypertension, hyperlipidemia, malignancy, tobacco use-previous and PE. . Report Signatures Finalized by Sergio Schneider MD on 12/23/2023 11:25 AM External Iliac: - External Iliac: Normal External Iliac: Normal External Iliac: - External Iliac: Normal External Iliac: Normal Common Femoral: Complete Common Femoral: Normal Common Femoral: Normal Common Femoral: Complete Common Femoral: Normal Common Femoral: Normal Femoral: Complete Femoral: Complete Femoral: Normal Femoral: Normal Femoral: Normal Femoral: Normal Peroneal: Complete Peroneal: Complete Peroneal: - Peroneal: - Peroneal: - Peroneal: - Profunda Femoral: Complete Profunda Femoral: - Profunda Femoral: Complete Profunda Femoral: - Profunda Femoral: - Popliteal: Complete Popliteal: Complete Popliteal: Normal Popliteal: Normal Popliteal: Normal Popliteal: Normal Posterior Tibial: Complete Posterior Tibial: Complete Posterior Tibial: - Posterior Tibial: - Posterior Tibial: - Posterior Tibial: - Gastrocnemius: - Gastrocnemius: - Gastrocnemius: - Gastrocnemius: - Gastrocnemius: - Gastrocnemius: - Soleal: - Soleal: - Soleal: - Soleal: - Soleal: - Soleal: - Great Saphenous: Complete Great Saphenous: Complete Great Saphenous: Normal Great Saphenous: Normal Great Saphenous: Normal Great Saphenous: Normal Small Saphenous: - Small Saphenous: - Small Saphenous: - Small Saphenous: - Small Saphenous: - Small Saphenous: - - [facility] CBC W Auto Differential pane l (Bld)on 11-15-2023 Basophils (Bld) [#/Vol] 0.03 10*3/uL [facility] Basophils/100 WBC (Bld) 0.4 % 0.0 - 2.0 % [facility] Eosinophils (Bld) [#/Vol] 0.19 10*3/uL [facility] Eosinophils/100 WBC (Bld) 2.3 % 0.0 - 6.0 % [facility] Erythrocyte distribution width (RBC) [Ratio] 13.8 % 11.5 - 14.5 % [facility] Hematocrit (Bld) [Volume fraction] 44.5 % 41.0 - 52.0 % [facility] Hemoglobin (Bld) [Mass/Vol] 14.5 g/dL 13.5 - 17.5 g/dL [facility] Immature granulocytes (Bld) [#/Vol] 0.02 10*3/uL [facility] Immature granulocytes/100 WBC (Bld) 0.2 % 0.0 - 0.9 % [facility] Comment on above: Immature Granulocyte Count (IG) includes promyelocytes, myelocytes and metamyelocytes but does not include bands. Percent differential counts (%) should be interpreted in the context of the absolute cell counts (cells/UL). Interpretation and review of laboratory results Abnormal [facility] Lymphocytes (Bld) [#/Vol] 0.27 10*3/uL Low [facility] Lymphocytes/100 WBC (Bld) 3.3 % 13.0 - 44.0 % [facility] MCH (RBC) [Entitic mass] 29.2 pg 26.0 - 34.0 pg [facility] MCHC (RBC) [Mass/Vol] 32.6 g/dL 32.0 - 36.0 g/dL [facility] MCV (RBC) [Entitic vol] 90 fL 80 - 100 fL [facility] Monocytes (Bld) [#/Vol] 0.59 10*3/uL [facility] Monocytes/100 WBC (Bld) 7.2 % 2.0 - 10.0 % [facility] Neutrophils (Bld) [#/Vol] 7.10 10*3/uL High [facility] Comment on above: Percent differential counts (%) should be interpreted in the context of the absolute cell counts (cells/uL). Neutrophils/100 WBC (Bld) 86.6 % 40.0 - 80.0 % [facility] Nucleated RBC/100 WBC (Bld) [Ratio] 0.0 % [facility] Platelets (Bld) [#/Vol] 248 10*3/uL [facility] RBC (Bld) [#/Vol] 4.97 10*6/uL [facility] WBC (Bld) [#/Vol] 8.2 10*3/uL [facility] Basophils (Bld) [#/Vol] 0.03 x10*3/uL Normal 0.00-0.10 [facility] Comment on above: Performed By: #### 5 7021-8 #### JULIUS NAVARRETE ([id number]) [facility] ([facility]) [address] [place] [address] [id number] Basophils/100 WBC (Bld) 0.4 % Normal 0.0-2.0 [facility] Comment on above: Performed By: #### 5 7021-8 #### JULIUS NAVARRETE ([id number]) [facility] ([facility]) [address] [place] [address] [id number] Eosinophils (Bld) [#/Vol] 0.19 x10*3/uL Normal 0.00-0.40 [facility] Comment on above: Performed By: #### 5 7021-8 #### JULIUS NAVARRETE ([id number]) [facility] ([facility]) [address] [place] [address] [id number] Eosinophils/100 WBC (Bld) 2.3 % Normal 0.0-6.0 [facility] Comment on above: Performed By: #### 5 7021-8 #### JULIUS NAVARRETE ([id number]) [facility] ([facility]) [address] [place] [address] [id number] Erythrocyte distribution width (RBC) [Ratio] 13.8 % Normal 11.5-14.5 [facility] Comment on above: Performed By: #### 5 7021-8 #### JULIUS NAVARRETE ([id number]) [facility] ([facility]) [address] [place] [address] 97082 Hematocrit (Bld) [Volume fraction] 44.5 % Normal 41.0-52.0 [facility] Comment on above: Performed By: #### 5 7021-8 #### JULIUS NAVARRETE ([id number]) [facility] ([facility]) [address] [place] [address] 88259 Hemoglobin (Bld) [Mass/Vol] 14.5 g/dL Normal 13.5-17.5 [facility] Comment on above: Performed By: #### 5 7021-8 #### JULIUS NAVARRETE ([id number]) [facility] ([facility]) [address] [place] [address] 42817 Immature granulocytes (Bld) [#/Vol] 0.02 x10*3/uL Normal 0.00-0.50 [facility] Comment on above: Performed By: #### 5 7021-8 #### JULIUS NAVARRETE ([id number]) [facility] ([facility]) [address] [place] [address] 30420 Immature granulocytes/100 WBC (Bld) 0.2 % Normal 0.0-0.9 [facility] Comment on above: Result Comment: Becky ture Granulocyte Count (IG) includes promyelocytes, myelocytes and metamyelocytes but does not include bands. Percent differential counts (%) should be interpreted in the context of the absolute cell counts (cells/UL). Performed By: #### 5 7021-8 #### JULIUS NAVARRETE ([id number]) [facility] ([facility]) [address] [place] [address] 16789 Lymphocytes (Bld) [#/Vol] 0.27 x10*3/uL Low 0.80-3.00 [facility] Comment on above: Performed By: #### 5 7021-8 #### JULIUS NAVARRETE ([id number]) [facility] ([facility]) [address] [place] [address] 54233 Lymphocytes/100 WBC (Bld) 3.3 % Normal 13.0-44.0 [facility] Comment on above: Performed By: #### 5 7021-8 #### JULIUS NAVARRETE ([id number]) [facility] ([facility]) [address] [place] [address] 83604 MCH (RBC) [Entitic mass] 29.2 pg Normal 26.0-34.0 [facility] Comment on above: Performed By: #### 5 7021-8 #### JULIUS NAVARRETE ([id number]) [facility] ([facility]) [address] [place] [address] MCHC (RBC) [Mass/Vol] 32.6 g/dL Normal 32.0-36.0 [facility] Comment on above: Performed By: #### 5 7021-8 #### JULIUS NAVARRETE ([id number]) [facility] ([facility]) [address] [place] [address] MCV (RBC) [Entitic vol] 90 fL Normal 80-100 [facility] Comment on above: Performed By: #### 5 7021-8 #### JULIUS NAVARRETE ([id number]) [facility] ([facility]) [address] [place] [address] Monocytes (Bld) [#/Vol] 0.59 x10*3/uL Normal 0.05-0.80 [facility] Comment on above: Performed By: #### 5 7021-8 #### JULIUS NAVARRETE ([id number]) [facility] ([facility]) [address] [place] [address] 71277 Monocytes/100 WBC (Bld) 7.2 % Normal 2.0-10.0 [facility] Comment on above: Performed By: #### 5 7021-8 #### JULIUS NAVARRETE ([id number]) [facility] ([facility]) [address] [place] [address] Neutrophils (Bld) [#/Vol] 7.10 x10*3/uL High 1.60-5.50 [facility] Comment on above: Result Comment: Perc ent differential counts (%) should be interpreted in the context of the absolute cell counts (cells/uL). Performed By: #### 5 7021-8 #### JULIUS NAVARRETE ([id number]) [facility] ([facility]) [address] [place] [address] 22979 Neutrophils/100 WBC (Bld) 86.6 % Normal 40.0-80.0 [facility] Comment on above: Performed By: #### 5 7021-8 #### JULIUS NAVARRETE ([id number]) [facility] ([facility]) [address] [place] [address] 50019 Nucleated RBC/100 WBC (Bld) [Ratio] 0.0 /100 WBCs Normal 0.0-0.0 [facility] Comment on above: Performed By: #### 5 7021-8 #### JULIUS NAVARRETE ([id number]) [facility] ([facility]) [address] [place] [address] 02600 Platelets (Bld) [#/Vol] 248 x10*3/uL Normal 150-450 [facility] Comment on above: Performed By: #### 5 7021-8 #### JULIUS NAVARRETE ([id number]) [facility] ([facility]) [address] [place] [address] 42765 RBC (Bld) [#/Vol] 4.97 x10*6/uL Normal 4.50-5.90 [facility] Comment on above: Performed By: #### 5 7021-8 #### JULIUS NAVARRETE ([id number]) [facility] ([facility]) [address] [place] [address] 37379 WBC (Bld) [#/Vol] 8.2 x10*3/uL Normal 4.4-11.3 [facility] Comment on above: Performed By: #### 5 7021-8 #### JULIUS NAVARRETE ([id number]) [facility] ([facility]) [address] [place] [address] ABDOMEN PELVIS W IV CONTR Errol 11-15-2023 CT ABDOMEN PELVIS W IV CONTRAST STUDY: CT Abdomen and Pelvis with IV Contrast; 11/15/2023 5:24 PM INDICATION: Abdominal pain, left inguinal hernia. COMPARISON: CT AP 04/05/2021. ACCESSION NUMBER(S): [id number] ORDERING CLINICIAN: ERNESTINA KRISHNAMURTHY TECHNIQUE: CT of the abdomen and pelvis was performed. Contiguous axial images were obtained at 3 mm slice thickness through the abdomen and pelvis. Coronal and sagittal reconstructions at 3 mm slice thickness were performed. Omnipaque 350--67 mL was administered intravenously. FINDINGS: There is bronchiectasis with mucoid impaction in the right lower lobe of the lung. Emphysematous changes are seen within the lung bases. A percutaneous gastrostomy tube is present. The liver is unremarkable in appearance. The portal and hepatic veins are patent. There is no intrahepatic ductal dilatation. The gallbladder is moderately distended. The spleen is enlarged at 13.5 cm. No inflammatory changes are seen surrounding the pancreas. No adrenal nodule is noted. There are bilateral renal cysts present. There is no evidence of hydronephrosis. No dilated loops of small bowel or colon are visualized. There are diverticula seen within the descending and sigmoid colon. There is no evidence of diverticulitis. The appendix is normal in appearance. No enlarged lymph nodes are seen within the pelvic sidewalls, iliac chains, or retroperitoneum. 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 Degenerative changes are seen throughout the lumbar spine. No inguinal hernia is appreciated. IMPRESSION: 1. No inguinal hernia appreciated. 2. Descending and sigmoid diverticulosis, with no evidence of diverticulitis. 3. Splenomegaly. 4. Bronchiectasis with mucoid impaction in the right lower lobe of the lung. 5. Aneurysmal dilatation of the abdominal aorta. 6. Bilateral renal cysts. Signed by Star Tony MD [facility] CT Abdomen and Pelvis W cont rast Sen 11-15-2023 1. No inguinal herni a appreciated. 2. Descending and sigmoid diverticulosis, with no evidence of diverticulitis. 3. Splenomegaly. 4. Bronchiectasis with mucoid impaction in the right lower lobe of the lung. 5. Aneurysmal dilatation of the abdominal aorta. 6. Bilateral renal cysts. Signed by Star Tony MD TELERADIOLOGY STUDY: CT Abdomen and Pelvis with IV Contrast; 11/15/2023 5:24 PM INDICATION: Abdominal pain, left inguinal hernia. COMPARISON: CT AP 04/05/2021. ACCESSION NUMBER(S): [id number] ORDERING CLINICIAN: ERNESTINA KRISHNAMURTHY TECHNIQUE: CT of the abdomen and pelvis was performed. Contiguous axial images were obtained at 3 mm slice thickness through the abdomen and pelvis. Coronal and sagittal reconstructions at 3 mm slice thickness were performed. Omnipaque 350--67 mL was administered intravenously. FINDINGS: There is bronchiectasis with mucoid impaction in the right lower lobe of the lung. Emphysematous changes are seen within the lung bases. A percutaneous gastrostomy tube is present. The liver is unremarkable in appearance. The portal and hepatic veins are patent. There is no intrahepatic ductal dilatation. The gallbladder is moderately distended. The spleen is enlarged at 13.5 cm. No inflammatory changes are seen surrounding the pancreas. No adrenal nodule is noted. There are bilateral renal cysts present. There is no evidence of hydronephrosis. No dilated loops of small bowel or colon are visualized. There are diverticula seen within the descending and sigmoid colon. There is no evidence of diverticulitis. The appendix is normal in appearance. No enlarged lymph nodes are seen within the pelvic sidewalls, iliac chains, or retroperitoneum. 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 Degenerative changes are seen throughout the lumbar spine. No inguinal hernia is appreciated. TELERADIOLOGY Star Tony MD - 11/15/2023 STUDY: CT Abdomen and Pelvis with IV Contrast; 11/15/2023 5:24 PM INDICATION: Abdominal pain, left inguinal hernia. COMPARISON: CT AP 04/05/2021. ACCESSION NUMBER(S): [id number] ORDERING CLINICIAN: ERNESTINA KRISHNAMURTHY TECHNIQUE: CT of the abdomen and pelvis was performed. Contiguous axial images were obtained at 3 mm slice thickness through the abdomen and pelvis. Coronal and sagittal reconstructions at 3 mm slice thickness were performed. Omnipaque 350--67 mL was administered intravenously. FINDINGS: There is bronchiectasis with mucoid impaction in the right lower lobe of the lung. Emphysematous changes are seen within the lung bases. A percutaneous gastrostomy tube is present. The liver is unremarkable in appearance. The portal and hepatic veins are patent. There is no intrahepatic ductal dilatation. The gallbladder is moderately distended. The spleen is enlarged at 13.5 cm. No inflammatory changes are seen surrounding the pancreas. No adrenal nodule is noted. There are bilateral renal cysts present. There is no evidence of hydronephrosis. No dilated loops of small bowel or colon are visualized. There are diverticula seen within the descending and sigmoid colon. There is no evidence of diverticulitis. The appendix is normal in appearance. No enlarged lymph nodes are seen within the pelvic sidewalls, iliac chains, or retroperitoneum. 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 Degenerative changes are seen throughout the lumbar spine. No inguinal hernia is appreciated. IMPRESSION: 1. No inguinal hernia appreciated. 2. Descending and sigmoid diverticulosis, with no evidence of diverticulitis. 3. Splenomegaly. 4. Bronchiectasis with mucoid impaction in the right lower lobe of the lung. 5. Aneurysmal dilatation of the abdominal aorta. 6. Bilateral renal cysts. Signed by Star Tony MD [facility] Work Phone: CT Abdomen and Pelvis W cont rast IVOrdered By: Star Tony on 11-15-2023 [facility] Work Phone: Comprehensive metabolic 2000 panelon 11-15-2023 Albumin BCP dye [Mass/Vol] 3.9 g/dL 3.4 - 5.0 g/dL [facility] ALP [Catalytic activity/Vol] 113 U/L 33 - 136 U/L [facility] ALT With P-5'-P [Catalytic activity/Vol] 28 U/L 10 - 52 U/L [facility] Comment on above: Patients treated wit h Sulfasalazine may generate falsely decreased results for ALT. Anion gap [Moles/Vol] 11 mmol/L 10 - 2 0 mmol/L [facility] AST With P-5'-P [Catalytic activity/Vol] 29 U/L 9 - 39 U/L [facility] Bilirubin [Mass/Vol] 1.1 mg/dL 0.0 - 1 .2 mg/dL [facility] Calcium [Mass/Vol] 9.5 mg/dL 8.6 - 10. 3 mg/dL [facility] Chloride [Moles/Vol] 92 mmol/L Low 98 - 10 7 mmol/L [facility] CO2 [Moles/Vol] 32 mmol/L 21 - 32 mmol/L [facility] Creatinine [Mass/Vol] 0.78 mg/dL 0.50 - 1.30 mg/dL [facility] eGFR - PINF [facility] Comment on above: Calculations of marv mated GFR are performed using the 2020 CKD-EPI Study Refit equation without the race variable for the IDMS-Traceable creatinine methods. https://jasn.asnjournals.org/content//ASN.312434 0760 Glucose [Mass/Vol] 95 mg/dL 74 - 99 mg/dL [facility] Potassium [Moles/Vol] 3.9 mmol/L 3.5 - 5.3 mmol/L [facility] Protein [Mass/Vol] 7.8 g/dL 6.4 - 8.2 g/dL [facility] Sodium [Moles/Vol] 131 mmol/L Low 136 - 145 mmol/L [facility] Urea nitrogen [Mass/Vol] 23 mg/dL 6 - 23 mg/dL [facility] Albumin BCP dye [Mass/Vol] 3.9 g/dL Normal 3.4-5.0 [facility] Comment on above: Performed By: #### 2 4323-8 #### JULIUS NAVARRETE ([id number]) [facility] ([facility]) [address] [place] [address] ALP [Catalytic activity/Vol] 113 U/L Normal 33-136 [facility] Comment on above: Performed By: #### 2 4323-8 #### JULIUS NAVARRETE ([id number]) [facility] ([facility]) [address] [place] [address] 22183 ALT With P-5'-P [Catalytic activity/Vol] 28 U/L Normal 10-52 [facility] Comment on above: Result Comment: Kay ents treated with Sulfasalazine may generate falsely decreased results for ALT. Performed By: #### 2 4323-8 #### JULIUS NAVARRETE ([id number]) [facility] ([facility]) [address] [place] [address] 91529 Anion gap [Moles/Vol] 11 mmol/L Normal 10-20 [facility] Comment on above: Performed By: #### 2 4323-8 #### JULIUS NAVARRETE ([id number]) [facility] ([facility]) [address] [place] [address] 96488 AST With P-5'-P [Catalytic activity/Vol] 29 U/L Normal 9-39 [facility] Comment on above: Performed By: #### 2 4323-8 #### JULIUS NAVARRETE ([id number]) [facility] ([facility]) [address] [place] [address] Bilirubin [Mass/Vol] 1.1 mg/dL Normal 0.0-1.2 [facility] Comment on above: Performed By: #### 2 4323-8 #### JULIUS NAVARRETE ([id number]) [facility] ([facility]) [address] [place] [address] Calcium [Mass/Vol] 9.5 mg/dL Normal 8.6-10.3 [facility] Comment on above: Performed By: #### 2 4323-8 #### JULIUS NAVARRETE ([id number]) [facility] ([facility]) [address] [place] [address] 82610 Chloride [Moles/Vol] 92 mmol/L Low 98-107 [facility] Comment on above: Performed By: #### 2 4323-8 #### JULIUS NAVARRETE ([id number]) [facility] ([facility]) [address] [place] [address] 17543 CO2 [Moles/Vol] 32 mmol/L Normal 21-32 [facility] Comment on above: Performed By: #### 2 4323-8 #### JULIUS NAVARRETE ([id number]) [facility] ([facility]) [facility] [place] [address] Creatinine [Mass/Vol] 0.78 mg/dL Normal 0.50-1.30 [facility] Comment on above: Performed By: #### 2 4323-8 #### JULIUS NAVARRETE ([id number]) [facility] ([facility]) [facility] [place] [address] GFR/1.73 sq M.predicted MDRD (S/P/Bld) [Vol rate/Area] mL/min/{1.73_m2} Normal >60 [facility] Comment on above: Result Comment: Calc ulations of estimated GFR are performed using the 2020 CKD-EPI Study Refit equation without the race variable for the IDMS-Traceable creatinine methods. https://jasn.asnjournals.org/content/early/ASN.487530 0817 Performed By: #### 2 4323-8 #### JULIUS NAVARRETE ([id number]) [facility] ([facility]) [address] [place] [address] 01565 Glucose [Mass/Vol] 95 mg/dL Normal 74-99 [facility] Comment on above: Performed By: #### 2 4323-8 #### JULIUS NAVARRETE ([id number]) [facility] ([facility]) [address] [place] [address] 98148 Potassium [Moles/Vol] 3.9 mmol/L Normal 3.5-5.3 [facility] Comment on above: Performed By: #### 2 4323-8 #### JULIUS NAVARRETE ([id number]) [facility] ([facility]) [address] [place] [address] 15632 Protein [Mass/Vol] 7.8 g/dL Normal 6.4-8.2 [facility] Comment on above: Performed By: #### 2 4323-8 #### JULIUS NAVARRETE ([id number]) [facility] ([facility]) [address] [place] [address] 02182 Sodium [Moles/Vol] 131 mmol/L Low 136-145 [facility] Comment on above: Performed By: #### 2 4323-8 #### JULIUS NAVARRETE ([id number]) [facility] ([facility]) [address] [place] [address] 94758 Urea nitrogen [Mass/Vol] 23 mg/dL Normal 6-23 [facility] Comment on above: Performed By: #### 2 4323-8 #### JULIUS NAVARRETE ([id number]) [facility] ([facility]) [address] [place] [address] 33793 FLUAV and FLUBV RNA ROBERTA+prob e Nom (Unsp spec)on 11-15-2023 FLUAV RNA ROBERTA+probe Ql (Resp) Not detected Not Detected [facility] FLUBV RNA ROBERTA+probe Ql (Resp) Not detected Not Detected [facility] This assay is an in vitro diagnostic multiplex nucleic acid amplification test for the detection and discrimination of Influenza A & B from nasopharyngeal specimens, and has been validated for use at [facility]. Negative results do not preclude Influenza A/B infections, and should not be used as the sole basis for diagnosis, treatment, or other management decisions. If Influenza A/B and RSV PCR results are negative, testing for Parainfluenza virus, Adenovirus and Metapneumovirus is routinely performed for [facility] pediatric oncology and intensive care inpatients, and is available on other patients by placing an add-on request. [facility] FLUAV RNA ROBERTA+probe Ql (Resp) Not detected Normal Not Detected [facility] Comment on above: Order Comment: This assay is an in vitro diagnostic multiplex nucleic acid amplification test for the detection and discrimination of Influenza A & B from nasopharyngeal specimens, and has been validated for use at [facility]. Negative results do not preclude Influenza A/B infections, and should not be used as the sole basis for diagnosis, treatment, or other management decisions. If Influenza A/B and RSV PCR results are negative, testing for Parainfluenza virus, Adenovirus and Metapneumovirus is routinely performed for [facility] pediatric oncology and intensive care inpatients, and is available on other patients by placing an add-on request. Performed By: #### 4 8509-4 #### JULIUS NAVARRETE ([id number]) [facility] ([facility]) [address] [place] [address] FLUBV RNA ROBERTA+probe Ql (Resp) Not detected Normal Not Detected [facility] Comment on above: Order Comment: This assay is an in vitro diagnostic multiplex nucleic acid amplification test for the detection and discrimination of Influenza A & B from nasopharyngeal specimens, and has been validated for use at [facility]. Negative results do not preclude Influenza A/B infections, and should not be used as the sole basis for diagnosis, treatment, or other management decisions. If Influenza A/B and RSV PCR results are negative, testing for Parainfluenza virus, Adenovirus and Metapneumovirus is routinely performed for [facility] pediatric oncology and intensive care inpatients, and is available on other patients by placing an add-on request. Performed By: #### 4 8509-4 #### JULIUS NAVARRETE ([id number]) [facility] ([facility]) [address] [place], [place] [id number] Lactateon 09-28-2024 Lactate [Moles/Vol] 1.0 mmol/L 0.4 - 2. 0 mmol/L [facility] Lactate [Moles/Vol] 1.0 mmol/L Normal 0.4-2.0 [facility] Comment on above: Order Comment: Venip uncture immediately after or during the administration of Metamizole may lead to falsely low results. Testing should be performed immediately prior to Metamizole dosing. Performed By: #### 2 524-7 #### MADRID LANDON ([id number]) [facility] ([facility]) [address] [place] [address] Lactate [Moles/Vol]on 2023 Interpretation and review of laboratory results Normal [facility] Venipuncture immediately after or during the administration of Metamizole may lead to falsely low results. Testing should be performed immediately prior to Metamizole dosing. [facility] Lipaseon 11-15-2023 Lipase [Catalytic activity/Vol] U/L Low 9 - 82 U/L [facility] Lipase [Catalytic activity/V ol]on 11-15-2023 Venipuncture immediately after or during the administration of Metamizole may lead to falsely low results. Testing should be performed immediately prior to Metamizole dosing. [facility] No Panel Informationon 11-14 Interpretation and review of laboratory results Normal [facility] Interpretation and review of laboratory results Abnormal [facility] Radiology Study observation (narrative) [facility] Work Phone: RSV PCRon 11-15-2023 RSV RNA ROBERTA+probe Ql (Resp) Not detected Not Detected [facility] RSV RNA ROBERTA+probe Ql (Resp)o n 11-15-2023 This assay is an FDA-cleared, in vitro diagnostic nucleic acid amplification test for the detection of RSV from nasopharyngeal specimens, and has been validated for use at [facility]. Negative results do not preclude RSV infections, and should not be used as the sole basis for diagnosis, treatment, or other management decisions. If Influenza A/B and RSV PCR results are negative, testing for Parainfluenza virus, Adenovirus and Metapneumovirus is routinely performed for pediatric oncology and intensive care inpatients at [facility], and is available on other patients by placing an add-on request. [facility] Respiratory syncytial virus RNAon 11-15-2023 RSV RNA ROBERTA+probe Ql (Resp) Not detected Normal Not Detected [facility] Comment on above: Order Comment: This assay is an FDA-cleared, in vitro diagnostic nucleic acid amplification test for the detection of RSV from nasopharyngeal specimens, and has been validated for use at [facility]. Negative results do not preclude RSV infections, and should not be used as the sole basis for diagnosis, treatment, or other management decisions. If Influenza A/B and RSV PCR results are negative, testing for Parainfluenza virus, Adenovirus and Metapneumovirus is routinely performed for pediatric oncology and intensive care inpatients at [facility], and is available on other patients by placing an add-on request. Performed By: #### 9 2131-2 #### JULIUS NAVARRETE ([id number]) [facility] ([facility]) [address] [place], [place] [address] SARS coronavirus 2 RNAon SARS-CoV-2 (COVID-19) RNA ROBERTA+probe Ql (Resp) Not detected Normal Not Detected [facility] Comment on above: Order Comment: This assay has received FDA Emergency Use Authorization (EUA) and is only authorized for the duration of time that circumstances exist to justify the authorization of the emergency use of in vitro diagnostic tests for the detection of SARS-CoV-2 virus and/or diagnosis of COVID-19 infection under section 564(b)(1) of the Act, 21 U.S.C. 360bbb-3(b)(1). This assay is an in vitro diagnostic nucleic acid amplification test for the qualitative detection of SARS-CoV-2 from nasopharyngeal specimens and has been validated for use at [facility]. Negative results do not preclude COVID-19 infections and should not be used as the sole basis for diagnosis, treatment, or other management decisions. Performed By: #### 9 4500-6 #### JULIUS NAVARRETE ([id number]) [facility] ([facility]) [address] [place] [address] [id number] SARS-CoV-2 (COVID-19) RNA NA A+probe Ql (Resp)on 11-15-2023 This assay has received FDA Emergency Use Authorization (EUA) and is only authorized for the duration of time that circumstances exist to justify the authorization of the emergency use of in vitro diagnostic tests for the detection of SARS-CoV-2 virus and/or diagnosis of COVID-19 infection under section 564(b)(1) of the Act, 21 U.S.C. 360bbb-3(b)(1). This assay is an in vitro diagnostic nucleic acid amplification test for the qualitative detection of SARS-CoV-2 from nasopharyngeal specimens and has been validated for use at [facility]. Negative results do not preclude COVID-19 infections and should not be used as the sole basis for diagnosis, treatment, or other management decisions. [facility] Sars-CoV-2 PCRon 11-15-2023 SARS-CoV-2 (COVID-19) RNA ROBERTA+probe Ql (Resp) Not detected Not Detected [facility] TSH Qnon 11-15-2023 Interpretation and review of laboratory results Normal [facility] TSH testing is performed using different testing methodology at [facility] than at other [facility]. Direct result comparisons should only be made within the same method. [facility] Thyroid Stimulating Hormoneo n 11-15-2023 TSH Qn 2.20 m[IU]/L [facility] Thyrotropinon 11-15-2023 TSH Qn 2.20 m[IU]/L Normal 0.44-3.98 [facility] Comment on above: Order Comment: TSH t esting is performed using different testing methodology at [facility] than at other [facility]. Direct result comparisons should only be made within the same method. Performed By: #### 3 016-3 #### MADRID LANDON ([id number]) [facility] ([facility]) [address] [place] [address] Triacylglycerol lipaseon Lipase [Catalytic activity/Vol] U/L Low 9-82 [facility] Comment on above: Order Comment: Venip uncture immediately after or during the administration of Metamizole may lead to falsely low results. Testing should be performed immediately prior to Metamizole dosing. Performed By: #### 3 040-3 #### JULIUS NAVARRETE ([id number]) [facility] ([facility]) [address] [place] [address] Urinalysis complete W Reflex Culture panel (U)on 11-15-2023 Appearance (U) Clear Clear [facility] Bilirubin (U) [Mass/Vol] Negative NEGATIVE [facility] Color (U) Yellow Light-Yellow, Yellow, Dark-Yellow [facility] Glucose Auto test strip (U) [Mass/Vol] Normal Normal mg/dL [facility] Interpretation and review of laboratory results Abnormal [facility] Ketones (U) [Mass/Vol] 20 (1+) Abnormal NEGATIVE mg/dL [facility] Leukocyte esterase Auto test strip Ql (U) Negative NEGATIVE [facility] Mucus Auto (Urine sed) [#/Area] FEW Reference range not established. /LPF [facility] Nitrite Auto test strip Ql (U) Negative NEGATIVE [facility] pH (U) 6.0 [pH] 5.0, 5.5, 6.0, 6.5, 7.0, 7.5, 8.0 [facility] Protein (U) [Mass/Vol] 10 (TRACE) NEGATIVE, 10 (TRACE), 20 (TRACE) mg/dL [facility] RBC (U) [#/Vol] Negative NEGATIVE [facility] RBC Auto (Urine sed) [#/Area] 3-5 NONE, 1-2, 3-5 /HPF [facility] Specific gravity (U) [Rel density] 1.037 Abnormal 1.005 - 1.035 [facility] Urobilinogen (U) [Mass/Vol] Normal Normal mg/dL [facility] WBC Auto (Urine sed) [#/Area] 1-5 1-5, NONE /HPF [facility] Appearance (U) Clear Normal Clear [facility] Comment on above: Performed By: #### 5 7021-8 #### JULIUS NAVARRETE ([id number]) [facility] ([facility]) [address] [place], [place] [id number] Bilirubin (U) [Mass/Vol] Negative Normal NEGATIVE [facility] Comment on above: Performed By: #### 5 7021-8 #### JULIUS NAVARRETE ([id number]) [facility] ([facility]) [address] [place] [address] Color (U) Yellow Normal Light-Yellow, Yellow, Dark-Yellow [facility] Comment on above: Performed By: #### 5 7021-8 #### JULIUS NAVARRETE ([id number]) [facility] ([facility]) [address] [place], [place] [phone] Glucose Auto test strip (U) [Mass/Vol] Normal Normal Normal [facility] Comment on above: Performed By: #### 5 7021-8 #### JULIUS NAVARRETE ([id number]) [facility] ([facility]) [address] [place] [address] Ketones (U) [Mass/Vol] 20 (1+) Abnormal NEGATIVE [facility] Comment on above: Performed By: #### 5 7021-8 #### JULIUS NAVARRETE ([id number]) [facility] ([facility]) [address] [place], [place] [phone] Leukocyte esterase Auto test strip Ql (U) Negative Normal NEGATIVE [facility] Comment on above: Performed By: #### 5 7021-8 #### JULIUS NAVARRETE ([id number]) [facility] ([facility]) [address] [place] [address] Mucus Auto (Urine sed) [#/Area] FEW Normal Reference range not established. [facility] Comment on above: Performed By: #### 5 7021-8 #### JULIUS NAVARRETE ([id number]) [facility] ([facility]) [address] [place], [place] [phone] Nitrite Auto test strip Ql (U) Negative Normal NEGATIVE [facility] Comment on above: Performed By: #### 5 7021-8 #### JULIUS NAVARRETE ([id number]) [facility] ([facility]) [address] [place] [address] pH (U) 6.0 [pH] Normal 5.0, 5.5, 6.0, 6.5, 7.0, 7.5, 8.0 [facility] Comment on above: Performed By: #### 5 7021-8 #### JULIUS NAVARRETE ([id number]) [facility] ([facility]) [address] [place] [address] Protein (U) [Mass/Vol] 10 (TRACE) Normal NEGATIVE, 10 (TRACE), 20 (TRACE) [facility] Comment on above: Performed By: #### 5 7021-8 #### JULIUS NAVARRETE ([id number]) [facility] ([facility]) [address] [place] [address] 41605 RBC (U) [#/Vol] Negative Normal NEGATIVE [facility] Comment on above: Performed By: #### 5 7021-8 #### JULIUS NAVARRETE ([id number]) [facility] ([facility]) [address] [place] [address] 91987 RBC Auto (Urine sed) [#/Area] 3-5 Normal NONE, 1-2, 3-5 [facility] Comment on above: Performed By: #### 5 7021-8 #### JULIUS NAVARRETE ([id number]) [facility] ([facility]) [address] [place] [address]67[address] Specific gravity (U) [Rel density] 1.037 Normal 1.005-1.035 [facility] Comment on above: Performed By: #### 5 7021-8 #### JULIUS NAVARRETE ([id number]) [facility] ([facility]) [address] [place] [address] 75261 Urobilinogen (U) [Mass/Vol] Normal Normal Normal [facility] Comment on above: Performed By: #### 5 7021-8 #### JULIUS NAVARRETE ([id number]) [facility] ([facility]) [address] [place] [address] 62698 WBC Auto (Urine sed) [#/Area] 1-5 Normal 1-5, NONE [facility] Comment on above: Performed By: #### 5 7021-8 #### JULIUS NAVARRETE ([id number]) [facility] ([facility]) [address] [place] [address] XR CHEST 1 VIEWon 11-15-2023 XR CHEST 1 VIEW STUDY: Chest Radiograph; 11/15/2023 4:18 PM INDICATION: Fever, malaise. COMPARISON: XR chest 04/05/2021 ACCESSION NUMBER(S): [id number] ORDERING CLINICIAN: ERNESTINA KRISHNAMURTHY TECHNIQUE: Frontal chest was obtained at 16:18 hours (two images). FINDINGS: CARDIOMEDIASTINAL SILHOUETTE: Cardiomediastinal silhouette is normal in size and configuration. LUNGS: Lungs are clear. ABDOMEN: No remarkable upper abdominal findings. BONES: No acute osseous changes. IMPRESSION: No evidence consolidating infiltrate or effusion. Signed by Angelic Naylor MD [facility] XR Chest Single viewon 11-14 No evidence consolidating infiltrate or effusion. Signed by Angelic Naylor MD TELERADIOLOGY STUDY: Chest Radiograph; 11/15/2023 4:18 PM INDICATION: Fever, malaise. COMPARISON: XR chest 04/05/2021 ACCESSION NUMBER(S): [id number] ORDERING CLINICIAN: ERNESTINA KRISHNAMURTHY TECHNIQUE: Frontal chest was obtained at 16:18 hours (two images). FINDINGS: CARDIOMEDIASTINAL SILHOUETTE: Cardiomediastinal silhouette is normal in size and configuration. LUNGS: Lungs are clear. ABDOMEN: No remarkable upper abdominal findings. BONES: No acute osseous changes. TELERADIOLOGY Angelic Naylor MD - 11/15/2023 STUDY: Chest Radiograph; 11/15/2023 4:18 PM INDICATION: Fever, malaise. COMPARISON: XR chest 04/05/2021 ACCESSION NUMBER(S): [id number] ORDERING CLINICIAN: ERNESTINA KRISHNAMURTHY TECHNIQUE: Frontal chest was obtained at 16:18 hours (two images). FINDINGS: CARDIOMEDIASTINAL SILHOUETTE: Cardiomediastinal silhouette is normal in size and configuration. LUNGS: Lungs are clear. ABDOMEN: No remarkable upper abdominal findings. BONES: No acute osseous changes. IMPRESSION: No evidence consolidating infiltrate or effusion. Signed by Angelic Naylor MD [facility] Work Phone: XR Chest Single viewOrdered By: Angelic Naylor on 11-15-2023 [facility] Work Phone: EGDon 11-11-2023 Esophagogastroduodeno scopy Table formatting from the original result was not included. Impression Multiple small, ulcers in the duodenal bulb with clean base (Mark III) Removed tube from the antrum. The tube was replaced with a GJ tube. Findings Multiple small, superficial, linear, benign-appearing ulcers in the duodenal bulb with clean base (Mark III) Removed tube endoscopically with a retrieval snare net from the antrum. Scope was reinserted and the mucosa appeared normal. The tube was replaced with a GJ tube measuring 22 Fr; distance from external bolster to external end of tube: 2.5 cm. Recommendation Follow up with me in clinic Indication S/P percutaneous endoscopic gastrostomy (PEG) tube placement (Multi) Staff Staff Role No Staff Documented Medications See Anesthesia Record. Preprocedure A history and physical has been performed, and patient medication allergies have been reviewed. The patient's tolerance of previous anesthesia has been reviewed. The risks and benefits of the procedure and the sedation options and risks were discussed with the patient and patient's partner. All questions were answered and informed consent obtained. Details of the Procedure The patient underwent general anesthesia, which was administered by an anesthesia professional. The patient's blood pressure, ECG, ETCO2, heart rate, level of consciousness, respirations and oxygen were monitored throughout the procedure. The scope was introduced through the mouth and advanced to the third part of the duodenum. Retroflexion was performed in the cardia. Prior to the procedure, the patient's H. Pylori status was negative. The patient experienced no blood loss. The procedure was not difficult. The patient tolerated the procedure well. There were no apparent adverse events. Events Procedure Events Event Event Time ENDO SCOPE IN TIME 11/11/2023 7:13 AM ENDO SCOPE OUT TIME 11/11/2023 7:21 AM Specimens No specimens collected Procedure Location [facility] [place] [address] [place] [phone] Referring Provider Vasu Jaimes DO Procedure Provider Vasu Jaimes DO [facility] Comment on above: Order Comment: nov 10 EGD Study observation Narrat libia 11-11-2023 Table formatting fro m the original result was not included. Impression Multiple small, ulcers in the duodenal bulb with clean base (Mark III) Removed tube from the antrum. The tube was replaced with a GJ tube. Findings Multiple small, superficial, linear, benign-appearing ulcers in the duodenal bulb with clean base (Mark III) Removed tube endoscopically with a retrieval snare net from the antrum. Scope was reinserted and the mucosa appeared normal. The tube was replaced with a GJ tube measuring 22 Fr; distance from external bolster to external end of tube: 2.5 cm. Recommendation Follow up with me in clinic Indication S/P percutaneous endoscopic gastrostomy (PEG) tube placement (Multi) Staff Staff Role No Staff Documented Medications See Anesthesia Record. Preprocedure A history and physical has been performed, and patient medication allergies have been reviewed. The patient's tolerance of previous anesthesia has been reviewed. The risks and benefits of the procedure and the sedation options and risks were discussed with the patient and patient's partner. All questions were answered and informed consent obtained. Details of the Procedure The patient underwent general anesthesia, which was administered by an anesthesia professional. The patient's blood pressure, ECG, ETCO2, heart rate, level of consciousness, respirations and oxygen were monitored throughout the procedure. The scope was introduced through the mouth and advanced to the third part of the duodenum. Retroflexion was performed in the cardia. Prior to the procedure, the patient's H. Pylori status was negative. The patient experienced no blood loss. The procedure was not difficult. The patient tolerated the procedure well. There were no apparent adverse events. Events Procedure Events Event Event Time ENDO SCOPE IN TIME 11/11/2023 7:13 AM ENDO SCOPE OUT TIME 11/11/2023 7:21 AM Specimens No specimens collected Procedure Location [facility] [place] [address] [place] [phone] Referring Provider Vasu Jaimes DO Procedure Provider Vasu Jaimes DO [facility] Work Phone: [facility] Work Phone: Radiology Study observation (narrative) [facility] Work Phone: Comprehensive metabolic 2000 panelon 10-23-2023 Albumin [Mass/Vol] 4.1 g/dL 3.2 - 5.2 g/dL [facility] ALP [Catalytic activity/Vol] 154 U/L High 40 - 150 U/L [facility] ALT [Catalytic activity/Vol] 54 U/L High 0-50 U/L [facility] Anion gap [Moles/Vol] 16 mmol/L 10 - 2 0 mmol/L [facility] AST [Catalytic activity/Vol] 48 U/L 0-50 U/L [facility] Bilirubin [Mass/Vol] 0.4 mg/dL 0.0 - 1 .3 mg/dL [facility] Calcium [Mass/Vol] 9.9 mg/dL 8.4 - 10. 2 mg/dL [facility] Chloride [Moles/Vol] 102 mmol/L 98 - 10 8 mmol/L [facility] Creatinine [Mass/Vol] 0.77 mg/dL Low 0.80 - 1.30 mg/dL [facility] GFR/1.73 sq M.predicted CKD-EPI (S/P/Bld) [Vol rate/Area] 95 - PINF [facility] Comment on above: Estimated GFR was ca lculated using the 2020 CKD-EPI creatinine equation. Glucose [Mass/Vol] 113 mg/dL High 65 - 99 mg/dL [facility]3 [Moles/Vol] 34 mmol/L High 21 - 32 mmol/L [facility] Interpretation and review of laboratory results Abnormal [facility] Potassium [Moles/Vol] 4.4 mmol/L 3.5 - 5.1 mmol/L [facility] Protein [Mass/Vol] 8.2 g/dL High 6.0 - 8.0 g/dL [facility] Sodium [Moles/Vol] 148 mmol/L High 135 - 145 mmol/L [facility] Urea nitrogen [Mass/Vol] 31 mg/dL High 8 - 25 mg/dL [facility] Urea nitrogen/Creatinine [Mass ratio] 40.3 mg/mg High 10.0 - 20.0 [facility] has implemented the eGFR calculation approach that does not have a coefficient for race that conforms to the NKF-ASN Task Force Recommendations. [facility] IGE, TOTALon 09-01-2023 IgE Qn 64 [IU]/L Normal [facility] Comment on above: Result Comment: Refe rence range: 6 to 495 Unit: IU/mL PERFORMED AT [facility] Performed By: #### L A1AT #### Testing performed at [facility] [address] [place] [address] [place] [address] #### LIGE #### Testing performed at [facility] #### ACBC #### Testing performed at [facility] [address] [place] [address] MINI PANEL ALLERGEN PROFILEo n 08-31-2023 ALTERNARIA ALTERNATA <0.10 [facility] Comment on above: Result Comment: Refe rence range: Class 0 Unit: kU/L Performed By: #### L MINIA #### Testing performed at [facility] GEORGIAN ELM <0.10 [facility] Comment on above: Result Comment: Refe rence range: Class 0 Unit: kU/L Performed By: #### L MINIA #### Testing performed at [facility] BERMUDA GRASS <0.10 [facility] Comment on above: Result Comment: Refe rence range: Class 0 Unit: kU/L Performed By: #### L MINIA #### Testing performed at [place], [place] <0.10 [facility] Comment on above: Result Comment: Refe rence range: Class 0 Unit: kU/L Performed By: #### L MINIA #### Testing performed at [facility] CAT HAIR/DANDER 0.11 Abnormal [facility] Comment on above: Result Comment: Refe rence range: Class 0/I Unit: kU/L Performed By: #### L MINIA #### Testing performed at [facility] CLASS DESC Comment [facility] Comment on above: Result Comment: (NOT E) Levels of Specific IgE Class Description of Class ----- < 0.10 0 Negative 0.10 - 0.31 0/I Equivocal/Low 0.32 - 0.55 I Low 0.56 - 1.40 II Moderate 1.41 - 3.90 III High 3.91 - 19.00 IV Very High 19.01 - 100.00 V Very High >100.00 Very High Performed By: #### L MINIA #### Testing performed at [facility] D FARINAE MITE <0.10 [facility] Comment on above: Result Comment: Refe rence range: Class 0 Unit: kU/L Performed By: #### L MINIA #### Testing performed at [facility] D PTERONYSSINUS (DUST MITE) <0.10 [facility] Comment on above: Result Comment: Refe rence range: Class 0 Unit: kU/L Performed By: #### L MINIA #### Testing performed at [facility] [id number] DOG DANDER <0.10 [facility] Comment on above: Result Comment: Refe rence range: Class 0 Unit: kU/L PERFORMED AT [facility] Performed By: #### L MINIA #### Testing performed at [facility] MOUSE URINE <0.10 [facility] Comment on above: Result Comment: Refe rence range: Class 0 Unit: kU/L Performed By: #### L MINIA #### Testing performed at [facility] <0.10 [facility] Comment on above: Result Comment: Refe rence range: Class 0 Unit: kU/L Performed By: #### L MINIA #### Testing performed at [facility] PLANTAIN, ECUADOREAN <0.10 [facility] Comment on above: Result Comment: Refe rence range: Class 0 Unit: kU/L Performed By: #### L MINIA #### Testing performed at [facility] RAGWEED, SHORT/COM <0.10 [facility] Comment on above: Result Comment: Refe rence range: Class 0 Unit: kU/L Performed By: #### L MINIA #### Testing performed at [facility] MOLD ALLERGEN PROFILEon 07- ALTERNARIA ALTERNATA <0.10 [facility] Comment on above: Result Comment: Refe rence range: Class 0 Unit: kU/L Performed By: #### L MOLD #### Testing performed at [facility] ASPERGILL FUMIGATUS <0.10 [facility] Comment on above: Result Comment: Refe rence range: Class 0 Unit: kU/L Performed By: #### L MOLD #### Testing performed at [facility] PRERNA ALBICANS <0.10 [facility] Comment on above: Result Comment: Refe rence range: Class 0 Unit: kU/L Performed By: #### L MOLD #### Testing performed at [facility] CLADOSPORIUM HERBARUM <0.10 [facility] Comment on above: Result Comment: Refe rence range: Class 0 Unit: kU/L Performed By: #### L MOLD #### Testing performed at [facility] CLASS DESC Comment [facility] Comment on above: Result Comment: (NOT E) Levels of Specific IgE Class Description of Class ----- < 0.10 0 Negative 0.10 - 0.31 0/I Equivocal/Low 0.32 - 0.55 I Low 0.56 - 1.40 II Moderate 1.41 - 3.90 III High 3.91 - 19.00 IV Very High 19.01 - 100.00 V Very High >100.00 Very High Performed By: #### L MOLD #### Testing performed at [facility] FUSARIUM PROLIFERATUM <0.10 [facility] Comment on above: Result Comment: Refe rence range: Class 0 Unit: kU/L Performed By: #### L MOLD #### Testing performed at [facility] IGE AUREOBASIDIUM PULLUL <0.10 [facility] Comment on above: Result Comment: Refe rence range: Class 0 Unit: kU/L Performed By: #### L MOLD #### Testing performed at [facility] IGE EPICOCCUM PURPURASCE <0.10 [facility] Comment on above: Result Comment: Refe rence range: Class 0 Unit: kU/L Performed By: #### L MOLD #### Testing performed at [facility] IGE PHOMA BETAE <0.10 [facility] Comment on above: Result Comment: Refe rence range: Class 0 Unit: kU/L Performed By: #### L MOLD #### Testing performed at [facility] MUCOR RACEMOSUS <0.10 [facility] Comment on above: Result Comment: Refe rence range: Class 0 Unit: kU/L Performed By: #### L MOLD #### Testing performed at [facility] PENICILLIUM CHRYSOGEN <0.10 [facility] Comment on above: Result Comment: Refe rence range: Class 0 Unit: kU/L Performed By: #### L MOLD #### Testing performed at [facility] SETOMELANOMMA ROSRAT <0.10 [facility] Comment on above: Result Comment: Refe rence range: Class 0 Unit: kU/L PERFORMED AT [facility] Performed By: #### L MOLD #### Testing performed at [facility] STEMPHYLIUM HERBARUM <0.10 [facility] Comment on above: Result Comment: Refe rence range: Class 0 Unit: kU/L Performed By: #### L MOLD #### Testing performed at [facility] [id number] 2023 [id number] 234 [facility] Comment on above: Result Comment: Refe rence range: 101 to 187 Unit: mg/dL PERFORMED AT [facility] Performed By: #### L A1AT #### Testing performed [facility] [address] [place] [address] [place] [address] #### LIGE #### Testing performed at [facility] #### ACBC #### Testing performed at [facility] [address] [place] [address] CBCon 08-26-2023 ABSOLUTE BAS 0.0 10*3/uL Normal 0.0-0.2 [facility] Comment on above: Result Comment: Test ing performed at [place] [address] Performed By: #### L A1AT #### Testing performed at [address] [address] #### LIGE #### Testing performed at [facility] #### ACBC #### [place] [address] ABSOLUTE EOS 0.1 10*3/uL Normal 0.0-0.7 [facility] Comment on above: Performed By: #### L A1AT #### Testing performed at [address] [address] #### LIGE #### Testing performed at [facility] #### ACBC #### [place] [address] ABSOLUTE NEUTROPHIL COUNT 8.0 10*3/uL High 1.4-6.5 [facility] Comment on above: Performed By: #### L A1AT #### Testing performed at [address] [address] #### LIGE #### Testing performed at [facility] #### ACBC #### [place] [address] Basophils/100 WBC (Bld) 0.3 % Normal 0.0-2.0 [facility] Comment on above: Performed By: #### L A1AT #### Testing performed at [address] [address] #### LIGE #### Testing performed at [facility] #### ACBC #### Testing performed at [address] [address] DTYPE AUTO DIFF Normal [facility] Comment on above: Performed By: #### L A1AT #### Testing performed at [address] [place] [address] #### LIGE #### Testing performed at [facility] #### ACBC #### Testing performed at [address] [address] Eosinophils/100 WBC (Bld) 0.8 % Normal 0.0-11.0 [facility] Comment on above: Performed By: #### L A1AT #### Testing performed at [address] [place] [address] #### LIGE #### Testing performed at [facility] #### ACBC #### Testing performed at [address] [address] Lymphocytes (Bld) [#/Vol] 0.6 10*3/uL Low 1.2-3.4 [facility] Comment on above: Performed By: #### L A1AT #### Testing performed at [address] [address] #### LIGE #### Testing performed at [facility] #### ACBC #### Testing performed at [address] [address] Lymphocytes/100 WBC (Bld) 6.6 % Low 20.0-55.0 [facility] Comment on above: Performed By: #### L A1AT #### Testing performed at [address] [address] #### LIGE #### Testing performed at [facility] #### ACBC #### Testing performed at [address] [address] Monocytes (Bld) [#/Vol] 0.7 10*3/uL Normal 0.0-0.7 [facility] Comment on above: Performed By: #### L A1AT #### Testing performed at [address] [address] #### LIGE #### Testing performed at [facility] #### ACBC #### Testing performed at [address] [address] Monocytes/100 WBC (Bld) 7.8 % Normal 0.0-10.0 [facility] Comment on above: Performed By: #### L A1AT #### Testing performed at [address] [place] [address] #### LIGE #### Testing performed at [facility] #### ACBC #### Testing performed at [address] [address] Neutrophils/100 WBC (Bld) 84.5 % High 37.0-75.0 [facility] Comment on above: Performed By: #### L A1AT #### Testing performed at [address] [address] #### LIGE #### Testing performed at [facility] #### ACBC #### Testing performed at [address] [address] Erythrocyte distribution width (RBC) [Ratio] 14.1 % Normal 11.5-14.5 [facility] Comment on above: Performed By: #### L A1AT #### Testing performed at [address] [address] #### LIGE #### Testing performed at [facility] #### ACBC #### Testing performed at [address] [address] Hematocrit (Bld) [Volume fraction] 43.9 % Normal 42.0-52.0 [facility] Comment on above: Performed By: #### L A1AT #### Testing performed at [address] [address] #### LIGE #### Testing performed at [facility] #### ACBC #### Testing performed at [address] [address] Hemoglobin (Bld) [Mass/Vol] 14.8 g/dL Normal 14.0-18.0 [facility] Comment on above: Performed By: #### L A1AT #### Testing performed at [address] [address] #### LIGE #### Testing performed at [facility] #### ACBC #### Testing performed at [address] [address] MCH (RBC) [Entitic mass] 32.0 pg Normal 26.0-35.0 [facility] Comment on above: Performed By: #### L A1AT #### Testing performed at [address] [address] #### LIGE #### Testing performed at [facility] #### ACBC #### Testing performed at [address] [address] MCHC (RBC) [Mass/Vol] 33.7 g/dL Normal 27.0-37.0 [facility] Comment on above: Performed By: #### L A1AT #### Testing performed at [address] [address] #### LIGE #### Testing performed at [facility] #### ACBC #### Testing performed at [address] [address] MCV (RBC) [Entitic vol] 95.1 fL Normal 80.0-100.0 [facility] Comment on above: Performed By: #### L A1AT #### Testing performed at [address] [address] #### LIGE #### Testing performed at [facility] #### ACBC #### Testing performed at [address] [address] Platelet mean volume (Bld) [Entitic vol] 9.0 fL Normal 7.4-11.0 [facility] Comment on above: Performed By: #### L A1AT #### Testing performed at [facility] [address] [place], [place] [address] [place] [address] #### LIGE #### Testing performed at [facility] #### ACBC #### Testing performed at [address] [address] Platelets (Bld) [#/Vol] 235 10*3/uL Normal 130-400 [facility] Comment on above: Performed By: #### L A1AT #### Testing performed at [facility] [address] [place], [place] [address] [place] [address] #### LIGE #### Testing performed at [facility] #### ACBC #### Testing performed at [address] [address] RBC (Bld) [#/Vol] 4.62 10*6/uL Normal 4.0-6.1 [facility] Comment on above: Performed By: #### L A1AT #### Testing performed at [address] [place] [address] #### LIGE #### Testing performed at [facility] #### ACBC #### Testing performed at [address] [address] WBC (Bld) [#/Vol] 9.5 10*3/uL Normal 3.6-11.0 [facility] Comment on above: Performed By: #### L A1AT #### Testing performed at [address] [address] #### LIGE #### Testing performed at [facility] #### ACBC #### Testing performed at [address] [address] CBC, EDIF, PLATELETon 2023 ABSOLUTE BASOPHIL COUNT 0.0 10*3/uL 0.0 - 0.2 10*3/uL [facility] Comment on above: Testing performed at [place], [place] [address] Basophils/100 WBC (Bld) 0.3 % 0.0 - 2.0 % [facility] Differential cell count method Nom (Bld) AUTO DIFF % [facility] Eosinophils (Bld) [#/Vol] 0.1 10*3/uL 0.0 - 0.7 10*3/uL [facility] Eosinophils/100 WBC (Bld) 0.8 % 0.0 - 11.0 % [facility] Erythrocyte distribution width (RBC) [Ratio] 14.1 % 11.5 - 14.5 % [facility] Hematocrit (Bld) [Volume fraction] 43.9 % 42.0 - 52.0 % [facility] Hemoglobin (Bld) [Mass/Vol] 14.8 g/dL [facility] Interpretation and review of laboratory results Abnormal [facility] Lymphocytes (Bld) [#/Vol] 0.6 10*3/uL Low 1.2 - 3.4 10*3/uL [facility] Lymphocytes/100 WBC (Bld) 6.6 % Low 20.0 - 55.0 % [facility] MCH (RBC) [Entitic mass] 32.0 pg 26.0 - 35.0 PG [facility] MCHC (RBC) [Mass/Vol] 33.7 g/dL [facility] MCV (RBC) [Entitic vol] 95.1 fL [facility] Monocytes (Bld) [#/Vol] 0.7 10*3/uL 0.0 - 0.7 10*3/uL [facility] Monocytes/100 WBC (Bld) 7.8 % 0.0 - 10.0 % [facility] Neutrophils (Bld) [#/Vol] 8.0 10*3/uL High 1.4 - 6.5 10*3/uL [facility] Neutrophils/100 WBC (Bld) 84.5 % High 37.0 - 75.0 % [facility] Platelet mean volume (Bld) [Entitic vol] 9.0 fL [facility] Platelets (Bld) [#/Vol] 235 10*3/uL 130 - 400 10*3/uL [facility] RBC (Bld) [#/Vol] 4.62 10*6/uL 4.0 - 6.1 10*6/uL [facility] WBC (Bld) [#/Vol] 9.5 10*3/uL 3.6 - 11.0 10*3/uL [facility] EXERCISE-6 MIN. WALKon 08-21 Yobani Smalls MD 08/22/2023 2:46 PM - 08/22/23 6MWT: RT NOTES ... Had a difficult time getting spo2 due to poor circulation. Attempted numerous times on each hand. [facility] POCT URINE DIPSTICK AUTOMATE Don 08-07-2023 Amorphous sediment LM Ql (Urine sed) [facility] Appearance (U) clear [facility] Bacteria LM Ql (Urine sed) [facility] Bilirubin Ql (U) Negative [facility] Casts LM.LPF (Urine sed) [#/Area] [facility] Color (U) yellow [facility] Crystals LM Nom (Urine sed) [facility] Epithelial cells.squamous LM.HPF (Urine sed) [#/Area] [facility] Flow cytometry specialist review Kurtis (Unsp spec) [Interp] [facility] Glucose Auto test strip (U) [Mass/Vol] Negative mg/dL [facility] Interpretation and review of laboratory results Normal [facility] Ketones [Mass/Vol] Negative mg/dL [facility] Leukocyte esterase Qn (U) [facility] Leukocyte esterase Test strip Ql (U) Negative [facility] Microscopic observation Gram stain Nom (Bronch spec) [facility] Nitrite Ql (U) Negative [facility] pH (U) 5.0 [pH] 5 - 7 [facility] Protein Ql (U) trace mg/dL [facility] RBC LM.HPF (Urine sed) [#/Area] [facility] RBC Ql (U) Negative [facility] Specific gravity (U) [Rel density] 1.001 - 1.035 [facility] Transitional cells LM Ql (Urine sed) [facility] Urobilinogen Qn (U) 0.2 [facility] WBC LM.HPF (Urine sed) [#/Area] [facility] CT Chest W contrast Sen IMPRESSION: 1. Since 06/14/2023, mild increase in multifocal tree-in-bud opacities, most pronounced within the right lower lobe, and to a lesser degree within the right middle lobe and left lower lobe, compatible with infection/inflammation . The distribution is consistent with aspiration. 2. Persistent distal bronchiolar mucous plugging within the right lower lobe. Dependent secretions are present within the right mainstem bronchus and bronchus intermedius. 3. Unchanged mildly enlarged mediastinal lymph nodes. Transcribe Date/Time: Jul 18 2023 1:23P Dictated by: CHRISTIANO PERSAUD MD This examination was interpreted and the report reviewed and electronically signed by: CHRISTIANO PERSAUD MD on Jul 18 2023 1:33PM EST Thank you for allowing us to participate in the care of your patient. DIVISION OF RADIOLOGY * * *Final Report* * * DATE OF EXAM: Jul 18 2023 11:31AM OCC 0539 - CT CHEST W IVCON / PROCEDURE REASON: multiple diagnoses * * * * Physician Interpretation * * * * RESULT: EXAMINATION: CHEST CT WITH CONTRAST CLINICAL HISTORY: Aspiration. History of oral cancer. Technique: Spiral CT acquisition of the chest from the thoracic inlet to the upper abdomen following IV contrast. MQ: CTCW_6 Contrast: 50 mL Omnipaque [address] Radiation dose: Integrated Dose-length product (DLP) for this visit = 209 mGy*cm CT Dose Reduction Employed: Automated exposure control (AEC) Comparison: CT chest 06/14/2023; 05/24/2023; 05/09/2023 and 04/19/2023 RESULT: Limitations: None. Lines, tubes, and devices: None. Lung parenchyma and airways: There are increasing right lower lobe multifocal tree-in-bud opacities, compatible with infection/inflammation . Distal bronchiolar mucous plugging is again noted within the dependent posterior right lower lobe. Dependent secretion is noted within the right mainstem bronchus and bronchus intermedius. There is mild diffuse bronchial wall thickening, compatible with chronic bronchitis. Tree-in-bud opacities are also noted within the right middle lobe and left lower lobe, although to a lesser degree (mildly increased since the prior exam). There is juxtapleural atelectasis involving the medial aspect of the right lower lobe. No enlarging suspicious pulmonary nodule. Pleural space: No pleural effusion. No pleural thickening. Lower neck, lymph nodes, and mediastinum: The imaged thyroid is unremarkable. No supraclavicular, axillary or hilar lymphadenopathy. There are enlarged mediastinal lymph nodes, with technical services representative measurements detailed as follows on series 3: -Image 100, subcarinal, 1.3 cm in short axis (unchanged) -Image 113, right paraesophageal, 1.3 cm (unchanged) Heart, pericardium, and thoracic vessels: The thoracic aorta and main pulmonary artery are normal in caliber. The cardiac chambers are normal in size. No coronary artery atherosclerotic calcifications are noted, although the study is not optimized for coronary assessment. No pericardial effusion or thickening. Bones and soft tissues: Degenerative changes involve the thoracic spine. No destructive lytic or blastic osseous abnormality. Upper abdomen: No abnormality in the imaged upper abdomen. A percutaneous gastrostomy tube is in place. Localizer images: No additional findings. DIVISION OF RADIOLOGY Provider, [facility] - 07/18/2023 * * *Final Report* * * DATE OF EXAM: Jul 18 2023 11:31AM OCC 0539 - CT CHEST W IVCON / PROCEDURE REASON: multiple diagnoses * * * * Physician Interpretation * * * * RESULT: EXAMINATION: CHEST CT WITH CONTRAST CLINICAL HISTORY: Aspiration. History of oral cancer. Technique: Spiral CT acquisition of the chest from the thoracic inlet to the upper abdomen following IV contrast. MQ: CTCW_6 Contrast: 50 mL Omnipaque [address] Radiation dose: Integrated Dose-length product (DLP) for this visit = 209 mGy*cm CT Dose Reduction Employed: Automated exposure control (AEC) Comparison: CT chest 06/14/2023; 05/24/2023; 05/09/2023 and 04/19/2023 RESULT: Limitations: None. Lines, tubes, and devices: None. Lung parenchyma and airways: There are increasing right lower lobe multifocal tree-in-bud opacities, compatible with infection/inflammation . Distal bronchiolar mucous plugging is again noted within the dependent posterior right lower lobe. Dependent secretion is noted within the right mainstem bronchus and bronchus intermedius. There is mild diffuse bronchial wall thickening, compatible with chronic bronchitis. Tree-in-bud opacities are also noted within the right middle lobe and left lower lobe, although to a lesser degree (mildly increased since the prior exam). There is juxtapleural atelectasis involving the medial aspect of the right lower lobe. No enlarging suspicious pulmonary nodule. Pleural space: No pleural effusion. No pleural thickening. Lower neck, lymph nodes, and mediastinum: The imaged thyroid is unremarkable. No supraclavicular, axillary or hilar lymphadenopathy. There are enlarged mediastinal lymph nodes, with technical services representative measurements detailed as follows on series 3: -Image 100, subcarinal, 1.3 cm in short axis (unchanged) -Image 113, right paraesophageal, 1.3 cm (unchanged) Heart, pericardium, and thoracic vessels: The thoracic aorta and main pulmonary artery are normal in caliber. The cardiac chambers are normal in size. No coronary artery atherosclerotic calcifications are noted, although the study is not optimized for coronary assessment. No pericardial effusion or thickening. Bones and soft tissues: Degenerative changes involve the thoracic spine. No destructive lytic or blastic osseous abnormality. Upper abdomen: No abnormality in the imaged upper abdomen. A percutaneous gastrostomy tube is in place. Localizer images: No additional findings. IMPRESSION IMPRESSION: 1. Since 06/14/2023, mild increase in multifocal tree-in-bud opacities, most pronounced within the right lower lobe, and to a lesser degree within the right middle lobe and left lower lobe, compatible with infection/inflammation . The distribution is consistent with aspiration. 2. Persistent distal bronchiolar mucous plugging within the right lower lobe. Dependent secretions are present within the right mainstem bronchus and bronchus intermedius. 3. Unchanged mildly enlarged mediastinal lymph nodes. Transcribe Date/Time: Jul 18 2023 1:23P Dictated by: CHRISTIANO PERSAUD MD This examination was interpreted and the report reviewed and electronically signed by: CHRISTIANO PERSAUD MD on Jul 18 2023 1:33PM EST Thank you for allowing us to participate in the care of your patient. [facility] Radiology Study observation (narrative) [facility] CT Chest W contrast IVOrdere d By: [facility] Provider on 07-18-2023 [facility] C REACTIVE PROTEINon 024 CRP [Mass/Vol] 57.7 mg/L High 0 - 10 MG/L [email or web address] CBC, EDIF, PLATELETon 2023 ABSOLUTE BASOPHIL COUNT 0.0 10*3/uL 0.0 - 0.2 10*3/uL [facility] Basophils/100 WBC (Bld) 0.0 % 0.0 - 2.0 % [facility] Differential cell count method Nom (Bld) AUTO DIFF % [facility] Eosinophils (Bld) [#/Vol] 0.0 10*3/uL 0.0 - 0.7 10*3/uL [facility] Eosinophils/100 WBC (Bld) 0.0 % 0.0 - 11.0 % [facility] Erythrocyte distribution width (RBC) [Ratio] 16.3 % High 11.5 - 14.5 % [facility] Hematocrit (Bld) [Volume fraction] 34.6 % Low 42.0 - 52.0 % [facility] Hemoglobin (Bld) [Mass/Vol] 11.6 g/dL Low [facility] Interpretation and review of laboratory results Abnormal [facility] Lymphocytes (Bld) [#/Vol] 0.3 10*3/uL Low 1.2 - 3.4 10*3/uL [facility] Lymphocytes/100 WBC (Bld) 1.9 % Low 20.0 - 55.0 % [facility] MCH (RBC) [Entitic mass] 30.3 pg 26.0 - 35.0 PG [facility] MCHC (RBC) [Mass/Vol] 33.5 g/dL [facility] MCV (RBC) [Entitic vol] 90.4 fL [facility] Monocytes (Bld) [#/Vol] 0.5 10*3/uL 0.0 - 0.7 10*3/uL [facility] Monocytes/100 WBC (Bld) 3.3 % 0.0 - 10.0 % [facility] Neutrophils (Bld) [#/Vol] 13.9 10*3/uL High 1.4 - 6.5 10*3/uL [facility] Neutrophils/100 WBC (Bld) 94.8 % High 37.0 - 75.0 % [facility] Platelet mean volume (Bld) [Entitic vol] 8.3 fL [facility] Platelets (Bld) [#/Vol] 201 10*3/uL 130 - 400 10*3/uL [facility] RBC (Bld) [#/Vol] 3.83 10*6/uL Low 4.0 - 6.1 10*6/uL [facility] WBC (Bld) [#/Vol] 14.7 10*3/uL High 3.6 - 11.0 10*3/uL [facility] COMPREHENSIVE METABOLIC PANE Pj 06-17-2023 Albumin [Mass/Vol] 3.1 G/dl Low 3.5 - 5.0 G/dl [facility] Albumin/Globulin [Mass ratio] 1.0 {ratio} RATIO [facility] ALP [Catalytic activity/Vol] 107 U/L [facility] ALT [Catalytic activity/Vol] 39 U/L NINF [facility] AST [Catalytic activity/Vol] 30 U/L [facility] Bilirubin [Mass/Vol] 0.4 mg/dL [facility] Calcium [Mass/Vol] 8.9 mg/dL [facility] Chloride [Moles/Vol] 107 mmol/L [facility] Comment on above: Please note: Triglyc eride levels of 600mg/dL or higher may positively bias chloride results by approximately 2.1 mmol CO2 [Moles/Vol] 31 mmol/L High [facility] Creatinine [Mass/Vol] 0.58 mg/dL Low [facility] GFR COMMENT Average GFR for 70+ years old = 75. [facility] Comment on above: Chronic Kidney disea se, GFR = <60. Kidney failure, GFR = <15. The GFR estimate is not adjusted for extreme body surface area or acute process, nor has it been validated for women or ethnic groups other than and . GFR/1.73 sq M.predicted among blacks MDRD (S/P/Bld) [Vol rate/Area] 177 mL/min/{1.73_m2} ml/min/1.73sq .m [facility] GFR/1.73 sq M.predicted among non-blacks MDRD (S/P/Bld) [Vol rate/Area] 146 mL/min/{1.73_m2} ml/min/1.73sq .m [facility] Glucose post fast [Mass/Vol] 163 mg/dL High [facility] Comment on above: NORMAL <100 mg/dL PREDIABETES 101-126 mg/dL DIABETES 126 mg/dL or higher Potassium [Moles/Vol] 4.0 mmol/L [facility] Protein [Mass/Vol] 6.2 g/dL Low [facility] Sodium [Moles/Vol] 139 mmol/L [facility] Urea nitrogen [Mass/Vol] 26 mg/dL High [facility] MAGNESIUMon 06-17-2023 Magnesium [Mass/Vol] 2.1 mg/dL [facility] No Panel Informationon 06-16 Interpretation and review of laboratory results Abnormal [facility] PHOSPHATE, INORGANICon 06-16 Phosphate [Mass/Vol] 2.9 mg/dL [facility] TRIGLYCERIDEon 06-17-2023 Triglyceride [Mass/Vol] 93 mg/dL [facility] XR Chest PA uprighton 2023 IMPRESSION: Nonacute chest. RADIOLOGY EXAM: XR CHEST PA 1 VIEW HISTORY: SOB COMPARISON: Chest x-ray, 05/11/2023. TECHNIQUE: Frontal chest x-ray. FINDINGS: The heart, mediastinum, lungs and pleural spaces appear within normal limits. The bony thorax appears intact. RADIOLOGY Amy Gallegos MD - 06/17/2023 EXAM: XR CHEST PA 1 VIEW HISTORY: SOB COMPARISON: Chest x-ray, 05/11/2023. TECHNIQUE: Frontal chest x-ray. FINDINGS: The heart, mediastinum, lungs and pleural spaces appear within normal limits. The bony thorax appears intact. IMPRESSION IMPRESSION: Nonacute chest. [facility] Radiology Study observation (narrative) [facility] XR Chest PA uprightOrdered B y: Amy Gallegos on 06-17-2023 [facility] Work Phone: C REACTIVE PROTEINon 024 CRP [Mass/Vol] 149.7 mg/L High 0 - 10 MG/L [facility] Interpretation and review of laboratory results Abnormal [facility] CBC, EDIF, PLATELETon 2023 ABSOLUTE BASOPHIL COUNT 0.0 10*3/uL 0.0 - 0.2 10*3/uL [facility] Basophils/100 WBC (Bld) 0.1 % 0.0 - 2.0 % [facility] Differential cell count method Nom (Bld) AUTO DIFF % [facility] Eosinophils (Bld) [#/Vol] 0.0 10*3/uL 0.0 - 0.7 10*3/uL [facility] Eosinophils/100 WBC (Bld) 0.0 % 0.0 - 11.0 % [facility] Erythrocyte distribution width (RBC) [Ratio] 16.2 % High 11.5 - 14.5 % [facility] Hematocrit (Bld) [Volume fraction] 34.6 % Low 42.0 - 52.0 % [facility] Hemoglobin (Bld) [Mass/Vol] 11.5 g/dL Low [facility] Interpretation and review of laboratory results Abnormal [facility] Lymphocytes (Bld) [#/Vol] 0.2 10*3/uL Low 1.2 - 3.4 10*3/uL [facility] Lymphocytes/100 WBC (Bld) 1.2 % Low 20.0 - 55.0 % [facility] MCH (RBC) [Entitic mass] 30.0 pg 26.0 - 35.0 PG [facility] MCHC (RBC) [Mass/Vol] 33.3 g/dL [facility] MCV (RBC) [Entitic vol] 90.2 fL [facility] Monocytes (Bld) [#/Vol] 0.5 10*3/uL 0.0 - 0.7 10*3/uL [facility] Monocytes/100 WBC (Bld) 2.8 % 0.0 - 10.0 % [facility] Neutrophils (Bld) [#/Vol] 16.7 10*3/uL High 1.4 - 6.5 10*3/uL [facility] Neutrophils/100 WBC (Bld) 95.9 % High 37.0 - 75.0 % [facility] Platelet mean volume (Bld) [Entitic vol] 8.3 fL [facility] Platelets (Bld) [#/Vol] 185 10*3/uL 130 - 400 10*3/uL [facility] RBC (Bld) [#/Vol] 3.84 10*6/uL Low 4.0 - 6.1 10*6/uL [facility] WBC (Bld) [#/Vol] 17.5 10*3/uL High 3.6 - 11.0 10*3/uL [facility] COMPREHENSIVE METABOLIC PANE Pj 06-16-2023 Albumin [Mass/Vol] 3.2 G/dl Low 3.5 - 5.0 G/dl [facility] Albumin/Globulin [Mass ratio] 1.0 {ratio} RATIO [facility] ALP [Catalytic activity/Vol] 116 U/L [facility] ALT [Catalytic activity/Vol] 42 U/L NINF [facility] AST [Catalytic activity/Vol] 34 U/L [facility] Bilirubin [Mass/Vol] 0.5 mg/dL [facility] Calcium [Mass/Vol] 8.6 mg/dL [facility] Chloride [Moles/Vol] 105 mmol/L [facility] Comment on above: Please note: Triglyc eride levels of 600mg/dL or higher may positively bias chloride results by approximately 2.1 mmol CO2 [Moles/Vol] 30 mmol/L [facility] Creatinine [Mass/Vol] 0.50 mg/dL Low [facility] GFR COMMENT Average GFR for 70+ years old = 75. [facility] Comment on above: Chronic Kidney disea se, GFR = <60. Kidney failure, GFR = <15. The GFR estimate is not adjusted for extreme body surface area or acute process, nor has it been validated for women or ethnic groups other than and . GFR/1.73 sq M.predicted among blacks MDRD (S/P/Bld) [Vol rate/Area] 210 mL/min/{1.73_m2} ml/min/1.73sq .m [facility] GFR/1.73 sq M.predicted among non-blacks MDRD (S/P/Bld) [Vol rate/Area] 174 mL/min/{1.73_m2} ml/min/1.73sq .m [facility] Glucose post fast [Mass/Vol] 170 mg/dL [facility] Comment on above: NORMAL <100 mg/dL PREDIABETES 101-126 mg/dL DIABETES 126 mg/dL or higher Interpretation and review of laboratory results Abnormal [facility] Potassium [Moles/Vol] 4.2 mmol/L [facility] Protein [Mass/Vol] 6.4 g/dL [facility] Sodium [Moles/Vol] 139 mmol/L [facility] Urea nitrogen [Mass/Vol] 23 mg/dL [facility] LEGIONELLA URINARY AGon 05-19 L. pneumophila 1 Ag IA Ql (U) Negative NEGATIVE [facility] MAGNESIUMon 06-16-2023 Magnesium [Mass/Vol] 2.3 mg/dL [facility] No Panel Informationon 06-15 [facility] PHOSPHATE, INORGANICon 06-15 Phosphate [Mass/Vol] 2.7 mg/dL [facility] STREP PNEUMONIAE ANTIGEN, UR INEon 06-16-2023 S. pneumoniae Ag Ql (U) Negative NEGATIVE [facility] C REACTIVE PROTEINon 024 CRP [Mass/Vol] 224.9 mg/L High 0 - 10 MG/L [facility] Interpretation and review of laboratory results Abnormal [facility] CBC, EDIF, PLATELETon 2023 ABSOLUTE BASOPHIL COUNT 0.0 10*3/uL 0.0 - 0.2 10*3/uL [facility] Basophils/100 WBC (Bld) 0.1 % 0.0 - 2.0 % [facility] Differential cell count method Nom (Bld) AUTO DIFF % [facility] Eosinophils (Bld) [#/Vol] 0.0 10*3/uL 0.0 - 0.7 10*3/uL [facility] Eosinophils/100 WBC (Bld) 0.0 % 0.0 - 11.0 % [facility] Erythrocyte distribution width (RBC) [Ratio] 16.5 % High 11.5 - 14.5 % [facility] Hematocrit (Bld) [Volume fraction] 37.2 % Low 42.0 - 52.0 % [facility] Hemoglobin (Bld) [Mass/Vol] 12.2 g/dL Low [facility] Interpretation and review of laboratory results Abnormal [facility] Lymphocytes (Bld) [#/Vol] 0.2 10*3/uL Low 1.2 - 3.4 10*3/uL [facility] Lymphocytes/100 WBC (Bld) 1.2 % Low 20.0 - 55.0 % [facility] MCH (RBC) [Entitic mass] 30.6 pg 26.0 - 35.0 PG [facility] MCHC (RBC) [Mass/Vol] 32.8 g/dL [facility] MCV (RBC) [Entitic vol] 93.1 fL [facility] Monocytes (Bld) [#/Vol] 0.2 10*3/uL 0.0 - 0.7 10*3/uL [facility] Monocytes/100 WBC (Bld) 1.4 % 0.0 - 10.0 % [facility] Neutrophils (Bld) [#/Vol] 17.6 10*3/uL High 1.4 - 6.5 10*3/uL [facility] Neutrophils/100 WBC (Bld) 97.3 % High 37.0 - 75.0 % [facility] Platelet mean volume (Bld) [Entitic vol] 8.3 fL [facility] Platelets (Bld) [#/Vol] 147 10*3/uL 130 - 400 10*3/uL [facility] RBC (Bld) [#/Vol] 4.00 10*6/uL 4.0 - 6.1 10*6/uL [facility] WBC (Bld) [#/Vol] 18.1 10*3/uL High 3.6 - 11.0 10*3/uL [facility] CHEM 7 (LYTES,BUN,CREA,GLUC) on 06-15-2023 Chloride [Moles/Vol] 103 mmol/L [facility] Comment on above: Please note: Triglyc eride levels of 600mg/dL or higher may positively bias chloride results by approximately 2.1 mmol CO2 [Moles/Vol] 26 mmol/L [facility] Creatinine [Mass/Vol] 0.40 mg/dL Low [facility] GFR COMMENT Average GFR for 70+ years old = 75. [facility] Comment on above: Chronic Kidney disea se, GFR = <60. Kidney failure, GFR = <15. The GFR estimate is not adjusted for extreme body surface area or acute process, nor has it been validated for women or ethnic groups other than and . GFR/1.73 sq M.predicted among blacks MDRD (S/P/Bld) [Vol rate/Area] 272 mL/min/{1.73_m2} ml/min/1.73sq .m [facility] GFR/1.73 sq M.predicted among non-blacks MDRD (S/P/Bld) [Vol rate/Area] 225 mL/min/{1.73_m2} ml/min/1.73sq .m [facility] Glucose post fast [Mass/Vol] 188 mg/dL High [facility] Comment on above: NORMAL <100 mg/dL PREDIABETES 101-126 mg/dL DIABETES 126 mg/dL or higher Interpretation and review of laboratory results Abnormal [facility] Potassium [Moles/Vol] 4.3 mmol/L [facility] Sodium [Moles/Vol] 136 mmol/L Low [facility] Urea nitrogen [Mass/Vol] 19 mg/dL [facility] PROCALCITONINon 06-15-2023 PROCALCITONIN 0.14 ng/mL 0.00 - 0.25 ng/mL [facility] Comment on above: PCT Interpretation Less than 0.10 ng/mL, antibiotic therapy strongly discouraged. 0.10-0.25 ng/mL, antibiotic therapy discouraged. 0.25-0.50 ng/mL, antibiotic therapy encouraged. Greater than 0.50 ng/mL, antibiotic therapy strongly encouraged. [facility] SCREEN: MRSA ONLY, NARES (IS OLATION SCREEN)on 06-15-2023 MRSA isol Org specific cx Ql (Nose) Negative NEGATIVE [facility] STAPHYOCOCCUS AUREUS BY PCR Negative NEGATIVE [facility] Comment on above: TESTING PERFORMED BY PCR [facility] VANCOMYCIN LEVEL, TROUGH (CT E DRUG LEVEL)on 06-15-2023 Interpretation and review of laboratory results Abnormal [facility] Vancomycin trough [Mass/Vol] 12.1 ug/mL Low [facility] CBC, EDIF, PLATELETon 2023 ABSOLUTE BASOPHIL COUNT 0.0 10*3/uL 0.0 - 0.2 10*3/uL [facility] Basophils/100 WBC (Bld) 0.1 % 0.0 - 2.0 % [facility] Differential cell count method Nom (Bld) AUTO DIFF % [facility] Eosinophils (Bld) [#/Vol] 0.1 10*3/uL 0.0 - 0.7 10*3/uL [facility] Eosinophils/100 WBC (Bld) 0.4 % 0.0 - 11.0 % [facility] Erythrocyte distribution width (RBC) [Ratio] 16.2 % High 11.5 - 14.5 % [facility] Hematocrit (Bld) [Volume fraction] 38.9 % Low 42.0 - 52.0 % [facility] Hemoglobin (Bld) [Mass/Vol] 12.8 g/dL Low [facility] Interpretation and review of laboratory results Abnormal [facility] Lymphocytes (Bld) [#/Vol] 0.3 10*3/uL Low 1.2 - 3.4 10*3/uL [facility] Lymphocytes/100 WBC (Bld) 1.7 % Low 20.0 - 55.0 % [facility] MCH (RBC) [Entitic mass] 29.6 pg 26.0 - 35.0 PG [facility] MCHC (RBC) [Mass/Vol] 33.0 g/dL [facility] MCV (RBC) [Entitic vol] 89.8 fL [facility] Monocytes (Bld) [#/Vol] 1.5 10*3/uL High 0.0 - 0.7 10*3/uL [facility] Monocytes/100 WBC (Bld) 8.2 % 0.0 - 10.0 % [facility] Neutrophils (Bld) [#/Vol] 16.1 10*3/uL High 1.4 - 6.5 10*3/uL [facility] Neutrophils/100 WBC (Bld) 89.6 % High 37.0 - 75.0 % [facility] Platelet mean volume (Bld) [Entitic vol] 8.1 fL [facility] Platelets (Bld) [#/Vol] 190 10*3/uL 130 - 400 10*3/uL [facility] RBC (Bld) [#/Vol] 4.34 10*6/uL 4.0 - 6.1 10*6/uL [facility] WBC (Bld) [#/Vol] 18.0 10*3/uL High 3.6 - 11.0 10*3/uL [facility] COMPREHENSIVE METABOLIC PANE Pj 06-14-2023 Albumin [Mass/Vol] 3.4 G/dl Low 3.5 - 5.0 G/dl [facility] Albumin/Globulin [Mass ratio] 1.1 {ratio} RATIO [facility] ALP [Catalytic activity/Vol] 149 U/L High [facility] ALT [Catalytic activity/Vol] 46 U/L NINF [facility] AST [Catalytic activity/Vol] 48 U/L [facility] Bilirubin [Mass/Vol] 0.9 mg/dL [facility] Calcium [Mass/Vol] 8.7 mg/dL [facility] Chloride [Moles/Vol] 100 mmol/L [facility] Comment on above: Please note: Triglyc eride levels of 600mg/dL or higher may positively bias chloride results by approximately 2.1 mmol CO2 [Moles/Vol] 34 mmol/L [facility] Creatinine [Mass/Vol] 0.59 mg/dL Low [facility] GFR COMMENT Average GFR for 70+ years old = 75. [facility] Comment on above: Chronic Kidney disea se, GFR = <60. Kidney failure, GFR = <15. The GFR estimate is not adjusted for extreme body surface area or acute process, nor has it been validated for women or ethnic groups other than and . GFR/1.73 sq M.predicted among blacks MDRD (S/P/Bld) [Vol rate/Area] 174 mL/min/{1.73_m2} ml/min/1.73sq .[facility] GFR/1.73 sq M.predicted among non-blacks MDRD (S/P/Bld) [Vol rate/Area] 144 mL/min/{1.73_m2} ml/min/1.73sq .[facility] Glucose post fast [Mass/Vol] 143 mg/dL [facility] Comment on above: NORMAL <100 mg/dL PREDIABETES 101-126 mg/dL DIABETES 126 mg/dL or higher Potassium [Moles/Vol] 4.2 mmol/L [facility] Protein [Mass/Vol] 6.6 g/dL [facility] Sodium [Moles/Vol] 134 mmol/L [facility] Urea nitrogen [Mass/Vol] 24 mg/dL [facility] CT Chest WO contraston 06-13 IMPRESSION: 1. Increasing nodular densities right lower lobe most likely inflammatory, correlate for pneumonitis/pneumonia. Prominent gas in the esophagus suggesting reflux, question aspiration pneumonia. 2. Enlarging pleural-based density containing small amounts of gas adjacent to the inflammatory density in the right lower lobe noted above. Seen in the posterior inferior medial right chest centered at the T10-T11 level. Question whether this a chronic inflammatory process within the lung or adjacent pleura. There is no adjacent bony erosion or increasing pleural effusion. Has been present previously of variable size, large larger on 05/09/2023 and decreased on 05/24/2023. RADIOLOGY reg EXAMINATION: CT CHEST WITHOUT CONTRAST, , 06/14/2023 5:40 PM CDT INDICATION: Fever, dyspnea, history pneumonia.. HISTORY: Ordering Provider Reason for Exam: Fever dyspnea, history of pneumonia. Technologist Note: Fever Additional: Breathing treatment 1817 hours. Squamous cell cancer base of tongue. COMPARISON: CT PE study 05/24/2023, 05/09/2023. Chest CT without contrast 04/19/2023. Chest x-ray 06/14/2023. PET/CT scan 2012. TECHNIQUE: CT scan of the chest was performed without IV contrast. Axial scans with reformatted coronal and sagittal images. CT dose reduction technique was used, including Automated Exposure Control. FINDINGS: MEDIASTINUM: Visualized airways are patent. Heart is normal in size without pericardial effusion. Thoracic aorta is normal in caliber. Highly prominent precarinal subcarinal lymph nodes without significant change. No increasing adenopathy. No significant calcified coronary artery plaque. No gas throughout the esophagus suggests reflux. PLEURAL CAVITY: No evidence of pleural effusion. There is an enlarging pleural-based densities posterior medial right lower chest at the T10-T11 level. Surgical approximately 5.4 cm AP by 2.5 cm transverse diameter 4.5 cm craniocaudad diameter. No progressive bony erosion or destruction of the adjacent vertebra. Pleural-based without increasing pleural effusion. Lucency suggesting gas and possible small amounts of fluid. Variable size and prior studies, measured 4.2 cm AP diameter 05/09/2023 and 3.5 cm on 05/24/2023. Not present on PET/CT images from 2012. Question whether this chronic inflammatory process centered within the pleura or adjacent lung. LUNGS: Increasing nodular densities right lower lobe most likely inflammatory. Also some mild groundglass density. Mild interstitial density left lung base lower lobe improved from 05/24/2023. Lungs otherwise stable. No findings suspicious for metastatic disease. CHEST WALL/AXILLA: No axillary lymphadenopathy VISUALIZED UPPER ABDOMEN: No acute findings. Gastrostomy tube partially imaged. BONES: No destructive lesions. RADIOLOGY Amy Pereira MD - 06/14/2023 reg EXAMINATION: CT CHEST WITHOUT CONTRAST, , 06/14/2023 5:40 PM CDT INDICATION: Fever, dyspnea, history pneumonia.. HISTORY: Ordering Provider Reason for Exam: Fever dyspnea, history of pneumonia. Technologist Note: Fever Additional: Breathing treatment 1817 hours. Squamous cell cancer base of tongue. COMPARISON: CT PE study 05/24/2023, 05/09/2023. Chest CT without contrast 04/19/2023. Chest x-ray 06/14/2023. PET/CT scan 2012. TECHNIQUE: CT scan of the chest was performed without IV contrast. Axial scans with reformatted coronal and sagittal images. CT dose reduction technique was used, including Automated Exposure Control. FINDINGS: MEDIASTINUM: Visualized airways are patent. Heart is normal in size without pericardial effusion. Thoracic aorta is normal in caliber. Highly prominent precarinal subcarinal lymph nodes without significant change. No increasing adenopathy. No significant calcified coronary artery plaque. No gas throughout the esophagus suggests reflux. PLEURAL CAVITY: No evidence of pleural effusion. There is an enlarging pleural-based densities posterior medial right lower chest at the T10-T11 level. Surgical approximately 5.4 cm AP by 2.5 cm transverse diameter 4.5 cm craniocaudad diameter. No progressive bony erosion or destruction of the adjacent vertebra. Pleural-based without increasing pleural effusion. Lucency suggesting gas and possible small amounts of fluid. Variable size and prior studies, measured 4.2 cm AP diameter 05/09/2023 and 3.5 cm on 05/24/2023. Not present on PET/CT images from 2012. Question whether this chronic inflammatory process centered within the pleura or adjacent lung. LUNGS: Increasing nodular densities right lower lobe most likely inflammatory. Also some mild groundglass density. Mild interstitial density left lung base lower lobe improved from 05/24/2023. Lungs otherwise stable. No findings suspicious for metastatic disease. CHEST WALL/AXILLA: No axillary lymphadenopathy VISUALIZED UPPER ABDOMEN: No acute findings. Gastrostomy tube partially imaged. BONES: No destructive lesions. IMPRESSION IMPRESSION: 1. Increasing nodular densities right lower lobe most likely inflammatory, correlate for pneumonitis/pneumonia. Prominent gas in the esophagus suggesting reflux, question aspiration pneumonia. 2. Enlarging pleural-based density containing small amounts of gas adjacent to the inflammatory density in the right lower lobe noted above. Seen in the posterior inferior medial right chest centered at the T10-T11 level. Question whether this a chronic inflammatory process within the lung or adjacent pleura. There is no adjacent bony erosion or increasing pleural effusion. Has been present previously of variable size, large larger on 05/09/2023 and decreased on 05/24/2023. [facility] Radiology Study observation (narrative) [facility] INFLUENZA A AND B, PCRon FLUAV and FLUBV Ag IF Nom (Unsp spec) Negative NEGATIVE [facility] FLUBV Ag IA Ql (Unsp spec) Negative NEGATIVE [facility] Comment on above: TESTING PERFORMED BY ROBERTA [facility] LACTATE, BLOODon 06-14-2023 Lactate [Moles/Vol] 1.6 mmol/L 0.7 - 2. 0 mmol/L [facility] LIPASEon 06-14-2023 Lipase [Catalytic activity/Vol] 18 U/L Low 23 - 300 U/L [facility] NOVEL CORONAVIRUS LAB 1 - NA SOPHARYNGEALon 06-14-2023 NARRATIVE -1 This test was performed using isothermal ROBERTA and has been approved as Emergency Use Authorization (EUA) for the qualitative detection [id number] nucleic acid. [facility] SARS-CoV-2 (COVID-19) RNA ROBERTA+probe Ql (Unsp spec) Not detected NOT DETECTED [facility] Comment on above: Negative results do not preclude SARS-CoV-2 infection and should not be used as the sole basis for treatment or other patient management decisions. Optimum specimen types and timing for peak viral levels during infections caused by SARS-CoV-2 has not been determined. The possibility of a false negative result should especially be considered if the patient's recent exposures or clinical presentation suggest that SARS-CoV-2 infection is probable, and diagnostic tests for other causes of illness (e.g., other respiratory illness) are negative. Collection of a new specimen and re-testing may be necessary if the patient is critically ill or clinically deteriorating. [facility] No Panel Informationon 06-13 [facility] Interpretation and review of laboratory results Abnormal [facility] PROTIME-INRon 06-14-2023 INR Coag (PPP) [Relative time] 1.20 {INR} High 0.85 - 1.10 [facility] Comment on above: 2.0-3.0 THERAPEUTIC RANGE 2.5-3.5 MECHANICAL VALVE RANGE Interpretation and review of laboratory results Abnormal [facility] PT Coag (PPP) [Time] 15.3 [facility] PTTon 06-14-2023 aPTT Coag (Bld) [Time] 32.0 s [facility] Comment on above: CARDIAC AND PE/DVT THERAPUTIC RANGE 69-97 SEC VASCULAR/THREATENED LIMB THERAPUTIC RANGE 80-112 SEC [facility] TROPONIN I, HIGH SENSITIVITY on 06-14-2023 TROPONIN I, HIGH SENSITIVITY 13 pg/mL 0 - 20 pg/mL [facility] Comment on above: Indeterminant: >12 to 100 pg/mL female >20 to 100 pg/mL male Indicative of myocardial injury. Serial sampling is recommended, a change of greater than or equal to 20 pg/mL is indicative of acute coronary syndrome. [facility] URINALYSIS, MACROon 06-14-19 24 Bilirubin Ql (U) Negative NEGATIVE [facility] Clarity (U) CLEAR CLEAR [facility] Color (U) YELLOW YELLOW [facility] Glucose Test strip (U) [Mass/Vol] Negative NEGATIVE mg/dl [facility] Hemoglobin Ql (U) Negative NEGATIVE [facility] Interpretation and review of laboratory results Abnormal [facility] Ketones (U) [Mass/Vol] Negative NEGATIVE mg/dl [facility] Leukocyte esterase Test strip Ql (U) Negative NEGATIVE [facility] Nitrite Ql (U) Negative NEGATIVE [facility] pH (U) 7.0 [pH] 5.0 - 7.0 [facility] Protein Ql (U) TRACE Abnormal NEGATIVE mg/dl [facility] Specific gravity (U) [Rel density] 1.015 1.010 - 1.025 [facility] Urobilinogen (U) [Mass/Vol] 0.2 mg/dL [facility] URINE MICROSCOPICon 06-14-19 24 Bacteria LM.HPF (Urine sed) [#/Area] Negative NEGATIVE [facility] Casts LM.LPF (Urine sed) [#/Area] NONE NONE /LPF [facility] Crystals LM Nom (Urine sed) NONE NONE [facility] Epithelial cells LM Ql (Urine sed) NONE /HPF [facility] Mucus Ql (Urine sed) Negative NEGATIVE [facility] RBC LM.HPF (Urine sed) [#/Area] Negative NEGATIVE /HPF [facility] Urine sediment comments LM Kurtis (Urine sed) CULTURE CRITERIA NOT MET, NO CULTURE PERFORMED. [facility] WBC LM.HPF (Urine sed) [#/Area] Negative NEGATIVE /HPF [facility] XR Chest PA and Lateralon IMPRESSION: Stable chest x-ray, no acute findings. Clear lungs. RADIOLOGY EXAM: XR CHEST PA AN D LATERAL 2 VIEWS HISTORY: cough, fever, sob COMPARISON: 07/07/2020 TECHNIQUE: PA, lateral chest x-ray FINDINGS: Lungs clear without infiltrate or edema. Normal heart size. Pulmonary arteries prominent but stable. No pleural effusion or pneumothorax RADIOLOGY Amy Pereira MD - 06/14/2023 EXAM: XR CHEST PA AND LATERAL 2 VIEWS HISTORY: cough, fever, sob COMPARISON: 07/07/2020 TECHNIQUE: PA, lateral chest x-ray FINDINGS: Lungs clear without infiltrate or edema. Normal heart size. Pulmonary arteries prominent but stable. No pleural effusion or pneumothorax IMPRESSION IMPRESSION: Stable chest x-ray, no acute findings. Clear lungs. [facility] Radiology Study observation (narrative) [facility] XR Chest PA and LateralOrder ed By: Amy Pereira on 06-14-2023 [facility] Work Phone: OCT MACULA CIRRUS OU (BOTH E YES)on 06-11-2023 [facility] Radiology Study observation (narrative) [facility] C REACTIVE PROTEINon 024 CRP [Mass/Vol] 128.6 mg/L High 0 - 10 MG/L [facility] Interpretation and review of laboratory results Abnormal [facility] CBC, EDIF, PLATELETon 2023 ABSOLUTE BASOPHIL COUNT 0.0 10*3/uL 0.0 - 0.2 10*3/uL [facility] Basophils/100 WBC (Bld) 0.0 % 0.0 - 2.0 % [facility] Differential cell count method Nom (Bld) AUTO DIFF % [facility] Eosinophils (Bld) [#/Vol] 0.0 10*3/uL 0.0 - 0.7 10*3/uL [facility] Eosinophils/100 WBC (Bld) 0.0 % 0.0 - 11.0 % [facility] Erythrocyte distribution width (RBC) [Ratio] 15.3 % High 11.5 - 14.5 % [facility] Hematocrit (Bld) [Volume fraction] 38.4 % Low 42.0 - 52.0 % [facility] Hemoglobin (Bld) [Mass/Vol] 13.2 g/dL Low [facility] Interpretation and review of laboratory results Abnormal [facility] Lymphocytes (Bld) [#/Vol] 0.3 10*3/uL Low 1.2 - 3.4 10*3/uL [facility] Lymphocytes/100 WBC (Bld) 3.0 % Low 20.0 - 55.0 % [facility] MCH (RBC) [Entitic mass] 30.8 pg 26.0 - 35.0 PG [facility] MCHC (RBC) [Mass/Vol] 34.3 g/dL [facility] MCV (RBC) [Entitic vol] 89.7 fL [facility] Monocytes (Bld) [#/Vol] 0.2 10*3/uL 0.0 - 0.7 10*3/uL [facility] Monocytes/100 WBC (Bld) 1.8 % 0.0 - 10.0 % [facility] Neutrophils (Bld) [#/Vol] 8.5 10*3/uL High 1.4 - 6.5 10*3/uL [facility] Neutrophils/100 WBC (Bld) 95.2 % High 37.0 - 75.0 % [facility] Platelet mean volume (Bld) [Entitic vol] 9.0 fL [facility] Platelets (Bld) [#/Vol] 220 10*3/uL 130 - 400 10*3/uL [facility] RBC (Bld) [#/Vol] 4.28 10*6/uL 4.0 - 6.1 10*6/uL [facility] WBC (Bld) [#/Vol] 8.9 10*3/uL 3.6 - 11.0 10*3/uL [facility] COMPREHENSIVE METABOLIC PANE Pj 05-26-2023 Albumin [Mass/Vol] 3.2 G/dl Low 3.5 - 5.0 G/dl [facility] Albumin/Globulin [Mass ratio] 1.2 {ratio} RATIO [facility] ALP [Catalytic activity/Vol] 75 U/L [facility] ALT [Catalytic activity/Vol] 21 U/L NINF [facility] AST [Catalytic activity/Vol] 23 U/L [facility] Bilirubin [Mass/Vol] 0.7 mg/dL [facility] Calcium [Mass/Vol] 8.2 mg/dL Low [facility] Chloride [Moles/Vol] 105 mmol/L [facility] Comment on above: Please note: Triglyc eride levels of 600mg/dL or higher may positively bias chloride results by approximately 2.1 mmol CO2 [Moles/Vol] 29 mmol/L [facility] Creatinine [Mass/Vol] 0.55 mg/dL Low [facility] GFR COMMENT Average GFR for 70+ years old = 75. [facility] Comment on above: Chronic Kidney disea se, GFR = <60. Kidney failure, GFR = <15. The GFR estimate is not adjusted for extreme body surface area or acute process, nor has it been validated for women or ethnic groups other than and . GFR/1.73 sq M.predicted among blacks MDRD (S/P/Bld) [Vol rate/Area] 188 mL/min/{1.73_m2} ml/min/1.73sq .m [facility] GFR/1.73 sq M.predicted among non-blacks MDRD (S/P/Bld) [Vol rate/Area] 156 mL/min/{1.73_m2} ml/min/1.73sq .m [facility] Glucose post fast [Mass/Vol] 214 mg/dL High [facility] Comment on above: NORMAL <100 mg/dL PREDIABETES 101-126 mg/dL DIABETES 126 mg/dL or higher Interpretation and review of laboratory results Abnormal [facility] Potassium [Moles/Vol] 4.0 mmol/L [facility] Protein [Mass/Vol] 5.9 g/dL Low [facility] Sodium [Moles/Vol] 136 mmol/L Low [facility] Urea nitrogen [Mass/Vol] 19 mg/dL [facility] HEMOGLOBIN & HEMATOCRITon Hematocrit (Bld) [Volume fraction] 39.7 % Low 42.0 - 52.0 % [facility] Hemoglobin (Bld) [Mass/Vol] 13.4 g/dL Low [facility] Interpretation and review of laboratory results Abnormal [facility] MAGNESIUMon 05-26-2023 Magnesium [Mass/Vol] 2.3 mg/dL [facility] No Panel Informationon 05-25 [facility] PROTIME-INRon 05-26-2023 INR Coag (PPP) [Relative time] 1.27 {INR} High 0.85 - 1.10 [facility] Comment on above: 2.0-3.0 THERAPEUTIC RANGE 2.5-3.5 MECHANICAL VALVE RANGE Interpretation and review of laboratory results Abnormal [facility] PT Coag (PPP) [Time] 16.0 s High [facility] VANCOMYCIN LEVEL, TROUGH (CT E DRUG LEVEL)on 05-26-2023 Interpretation and review of laboratory results Abnormal [facility] Vancomycin trough [Mass/Vol] 12.4 ug/mL Low [facility] C REACTIVE PROTEINon 024 CRP [Mass/Vol] 74.8 mg/L High 0 - 10 MG/L [facility] CBC, EDIF, PLATELETon 2023 ABSOLUTE BASOPHIL COUNT 0.0 10*3/uL 0.0 - 0.2 10*3/uL [facility] Basophils/100 WBC (Bld) 0.1 % 0.0 - 2.0 % [facility] Differential cell count method Nom (Bld) AUTO DIFF % [facility] Eosinophils (Bld) [#/Vol] 0.0 10*3/uL 0.0 - 0.7 10*3/uL [facility] Eosinophils/100 WBC (Bld) 0.1 % 0.0 - 11.0 % [facility] Erythrocyte distribution width (RBC) [Ratio] 15.3 % High 11.5 - 14.5 % [facility] Hematocrit (Bld) [Volume fraction] 36.6 % Low 42.0 - 52.0 % [facility] Hemoglobin (Bld) [Mass/Vol] 12.1 g/dL Low [facility] Interpretation and review of laboratory results Abnormal [facility] Lymphocytes (Bld) [#/Vol] 0.6 10*3/uL Low 1.2 - 3.4 10*3/uL [facility] Lymphocytes/100 WBC (Bld) 4.5 % Low 20.0 - 55.0 % [facility] MCH (RBC) [Entitic mass] 29.7 pg 26.0 - 35.0 PG [facility] MCHC (RBC) [Mass/Vol] 33.0 g/dL [facility] MCV (RBC) [Entitic vol] 89.9 fL [facility] Monocytes (Bld) [#/Vol] 1.0 10*3/uL High 0.0 - 0.7 10*3/uL [facility] Monocytes/100 WBC (Bld) 7.7 % 0.0 - 10.0 % [facility] Neutrophils (Bld) [#/Vol] 11.9 10*3/uL High 1.4 - 6.5 10*3/uL [facility] Neutrophils/100 WBC (Bld) 87.6 % High 37.0 - 75.0 % [facility] Platelet mean volume (Bld) [Entitic vol] 8.5 fL [facility] Platelets (Bld) [#/Vol] 221 10*3/uL 130 - 400 10*3/uL [facility] RBC (Bld) [#/Vol] 4.07 10*6/uL 4.0 - 6.1 10*6/uL [facility] WBC (Bld) [#/Vol] 13.6 10*3/uL High 3.6 - 11.0 10*3/uL [facility] COMPREHENSIVE METABOLIC PANE Pj 05-25-2023 Albumin [Mass/Vol] 3.0 G/dl Low 3.5 - 5.0 G/dl [facility] Albumin/Globulin [Mass ratio] 1.2 {ratio} RATIO [facility] ALP [Catalytic activity/Vol] 69 U/L [facility] ALT [Catalytic activity/Vol] 17 U/L NINF [facility] AST [Catalytic activity/Vol] 20 U/L [facility] Bilirubin [Mass/Vol] 1.0 mg/dL [facility] Calcium [Mass/Vol] 7.9 mg/dL Low [facility] Chloride [Moles/Vol] 102 mmol/L [facility] Comment on above: Please note: Triglyc eride levels of 600mg/dL or higher may positively bias chloride results by approximately 2.1 mmol CO2 [Moles/Vol] 36 mmol/L [facility] Creatinine [Mass/Vol] 0.62 mg/dL Low [facility] GFR COMMENT Average GFR for 70+ years old = 75. [facility] Comment on above: Chronic Kidney disea se, GFR = <60. Kidney failure, GFR = <15. The GFR estimate is not adjusted for extreme body surface area or acute process, nor has it been validated for women or ethnic groups other than and . GFR/1.73 sq M.predicted among blacks MDRD (S/P/Bld) [Vol rate/Area] 164 mL/min/{1.73_m2} ml/min/1.73sq .m [facility] GFR/1.73 sq M.predicted among non-blacks MDRD (S/P/Bld) [Vol rate/Area] 136 mL/min/{1.73_m2} ml/min/1.73sq .m [facility] Glucose post fast [Mass/Vol] 107 mg/dL [facility] Comment on above: NORMAL <100 mg/dL PREDIABETES 101-126 mg/dL DIABETES 126 mg/dL or higher Potassium [Moles/Vol] 4.2 mmol/L [facility] Protein [Mass/Vol] 5.6 g/dL Low [facility] Sodium [Moles/Vol] 136 mmol/L [facility] Urea nitrogen [Mass/Vol] 23 mg/dL [facility] HEMOGLOBIN & HEMATOCRITon Hematocrit (Bld) [Volume fraction] 40.4 % Low 42.0 - 52.0 % [facility] Hemoglobin (Bld) [Mass/Vol] 13.3 g/dL [facility] Interpretation and review of laboratory results Abnormal [facility] Hematocrit (Bld) [Volume fraction] 39.6 % Low 42.0 - 52.0 % [facility] Hemoglobin (Bld) [Mass/Vol] 13.1 g/dL Low [facility] Interpretation and review of laboratory results Abnormal [facility] MAGNESIUMon 05-25-2023 Magnesium [Mass/Vol] 1.9 mg/dL [facility] No Panel Informationon 05-24 Interpretation and review of laboratory results Abnormal [facility] PROCALCITONINon 05-25-2023 PROCALCITONIN 0.12 ng/mL 0.00 - 0.25 ng/mL [facility] Comment on above: PCT Interpretation Less than 0.10 ng/mL, antibiotic therapy strongly discouraged. 0.10-0.25 ng/mL, antibiotic therapy discouraged. 0.25-0.50 ng/mL, antibiotic therapy encouraged. Greater than 0.50 ng/mL, antibiotic therapy strongly encouraged. [facility] RETICULOCYTESon 05-25-2023 Reticulocytes/100 RBC (Bld) 0.73 % 0.50 - 2.30 % [facility] SCREEN: MRSA ONLY, NARES (IS OLATION SCREEN)on 05-25-2023 MRSA isol Org specific cx Ql (Nose) Negative NEGATIVE [facility] STAPHYOCOCCUS AUREUS BY PCR Negative NEGATIVE [facility] Comment on above: TESTING PERFORMED BY PCR [facility] ARTERIAL BLOOD GASon 024 Arterial patency Wrist artery --pre arterial puncture Positive [facility] Base excess Calc (BldV) [Moles/Vol] 10.7 mmol/L [facility] Carboxyhemoglobin (Bld) [Mass fraction] 1.8 % [facility] CO2 (Bld) [Partial pressure] 53 mm[Hg] [facility] HCO3 (Bld) [Moles/Vol] 36.8 mmol/L [facility] Hemoglobin (Bld) [Mass/Vol] 14.8 g/dL [facility] Interpretation and review of laboratory results Abnormal [facility] Methemoglobin (BldC) [Mass fraction] 1.2 % [facility] Oxygen (Bld) [Partial pressure] 92 mm[Hg] [facility] Oxyhemoglobin (Bld) [Mass fraction] 95.5 % [facility] PATIENT PO2 SETTINGS 100% NRB MASK A [facility] pH (Bld) 7.45 [pH] 7.350 - 7.450 [facility] Specimen site Narrative RIGHT RADIAL [facility] B-TYPE NATRIURETIC PEPTIDE ( BRAIN)on 05-24-2023 Natriuretic peptide B (Bld) [Mass/Vol] 42 pg/mL 0 - 100 pg/mL [facility] C REACTIVE PROTEINon 024 CRP [Mass/Vol] 57.0 mg/L High 0 - 10 MG/L [facility] Interpretation and review of laboratory results Abnormal [facility] CBC, EDIF, PLATELETon 2023 ABSOLUTE BASOPHIL COUNT 0.0 10*3/uL 0.0 - 0.2 10*3/uL [facility] Basophils/100 WBC (Bld) 0.1 % 0.0 - 2.0 % [facility] Differential cell count method Nom (Bld) AUTO DIFF % [facility] Eosinophils (Bld) [#/Vol] 0.0 10*3/uL 0.0 - 0.7 10*3/uL [facility] Eosinophils/100 WBC (Bld) 0.2 % 0.0 - 11.0 % [facility] Erythrocyte distribution width (RBC) [Ratio] 15.5 % High 11.5 - 14.5 % [facility] Hematocrit (Bld) [Volume fraction] 45.4 % 42.0 - 52.0 % [facility] Hemoglobin (Bld) [Mass/Vol] 15.2 g/dL [facility] Interpretation and review of laboratory results Abnormal [facility] Lymphocytes (Bld) [#/Vol] 0.3 10*3/uL Low 1.2 - 3.4 10*3/uL [facility] Lymphocytes/100 WBC (Bld) 1.6 % Low 20.0 - 55.0 % [facility] MCH (RBC) [Entitic mass] 29.9 pg 26.0 - 35.0 PG [facility] MCHC (RBC) [Mass/Vol] 33.4 g/dL [facility] MCV (RBC) [Entitic vol] 89.6 fL [facility] Monocytes (Bld) [#/Vol] 1.5 10*3/uL High 0.0 - 0.7 10*3/uL [facility] Monocytes/100 WBC (Bld) 7.1 % 0.0 - 10.0 % [facility] Neutrophils (Bld) [#/Vol] 19.7 10*3/uL High 1.4 - 6.5 10*3/uL [facility] Neutrophils/100 WBC (Bld) 91.0 % High 37.0 - 75.0 % [facility] Platelet mean volume (Bld) [Entitic vol] 8.6 fL [facility] Platelets (Bld) [#/Vol] 272 10*3/uL 130 - 400 10*3/uL [facility] RBC (Bld) [#/Vol] 5.07 10*6/uL 4.0 - 6.1 10*6/uL [facility] WBC (Bld) [#/Vol] 21.7 10*3/uL High 3.6 - 11.0 10*3/uL [facility] COMPREHENSIVE METABOLIC PANE Pj 05-24-2023 Albumin [Mass/Vol] 4.0 G/dl 3.5 - 5.0 G/dl [facility] Albumin/Globulin [Mass ratio] 1.7 {ratio} RATIO [facility] ALP [Catalytic activity/Vol] 96 U/L [facility] ALT [Catalytic activity/Vol] 24 U/L [facility] AST [Catalytic activity/Vol] 32 U/L [facility] Bilirubin [Mass/Vol] 1.0 mg/dL [facility] Calcium [Mass/Vol] 8.7 mg/dL [facility] Chloride [Moles/Vol] 95 mmol/L Low [facility] Comment on above: Please note: Triglyc eride levels of 600mg/dL or higher may positively bias chloride results by approximately 2.1 mmol CO2 [Moles/Vol] 37 mmol/L High [facility] Creatinine [Mass/Vol] 0.70 mg/dL [facility] GFR COMMENT Average GFR for 70+ years old = 75. [facility] Comment on above: Chronic Kidney disea se, GFR = <60. Kidney failure, GFR = <15. The GFR estimate is not adjusted for extreme body surface area or acute process, nor has it been validated for women or ethnic groups other than and . GFR/1.73 sq M.predicted among blacks MDRD (S/P/Bld) [Vol rate/Area] 143 mL/min/{1.73_m2} ml/min/1.73sq .m [facility] GFR/1.73 sq M.predicted among non-blacks MDRD (S/P/Bld) [Vol rate/Area] 118 mL/min/{1.73_m2} ml/min/1.73sq .m [facility] Glucose post fast [Mass/Vol] 122 mg/dL High [facility] Comment on above: NORMAL <100 mg/dL PREDIABETES 101-126 mg/dL DIABETES 126 mg/dL or higher Interpretation and review of laboratory results Abnormal [facility] Potassium [Moles/Vol] 4.2 mmol/L [facility] Protein [Mass/Vol] 6.3 g/dL [facility] Sodium [Moles/Vol] 137 mmol/L [facility] Urea nitrogen [Mass/Vol] 33 mg/dL High [facility] CT Pulmonary arteries for pu lmonary emboluson 05-24-2023 IMPRESSION: 1. No change in the right lower lung bronchiectasis with mild to moderate mucous plugging. 2. Mild left basilar subpleural subsegmental atelectasis. 3. Mild underlying emphysema. 4. Air-filled mildly distended proximal esophagus could be a sign of achalasia or presbyesophagus, for example. RADIOLOGY EXAMINATION: CT PE STUDY, 05/24/2023 9:07 PM EDT HISTORY: Positive d-dimer with cough and congestion. Fever. COMPARISON: 05/07/2023. TECHNIQUE: CT angiography of the chest was performed with IV contrast. MIP (maximum intensity projection) images or 3D post processing was performed. CT dose reduction technique was used, including Automated Exposure Control. FINDINGS: LUNGS: Mild left basilar subsegmental atelectasis. Mild right lower lung bronchiectasis with mild mucous plugging. Is mild underlying emphysema. Pleura: No effusions. No pneumothorax. CARDIOVASCULAR: No evidence of pulmonary embolism. Heart and aorta are normal. Mediastinum: Normal trachea and thyroid. Mild esophageal distention. Lymph nodes: No adenopathy. Upper abdomen: G-tube in good position. Skeletal: No lytic or sclerotic lesions. No fractures. RADIOLOGY Tasha Quinn MD - 05/24/2023 EXAMINATION: CT PE STUDY, 05/24/2023 9:07 PM EDT HISTORY: Positive d-dimer with cough and congestion. Fever. COMPARISON: 05/07/2023. TECHNIQUE: CT angiography of the chest was performed with IV contrast. MIP (maximum intensity projection) images or 3D post processing was performed. CT dose reduction technique was used, including Automated Exposure Control. FINDINGS: LUNGS: Mild left basilar subsegmental atelectasis. Mild right lower lung bronchiectasis with mild mucous plugging. Is mild underlying emphysema. Pleura: No effusions. No pneumothorax. CARDIOVASCULAR: No evidence of pulmonary embolism. Heart and aorta are normal. Mediastinum: Normal trachea and thyroid. Mild esophageal distention. Lymph nodes: No adenopathy. Upper abdomen: G-tube in good position. Skeletal: No lytic or sclerotic lesions. No fractures. IMPRESSION IMPRESSION: 1. No change in the right lower lung bronchiectasis with mild to moderate mucous plugging. 2. Mild left basilar subpleural subsegmental atelectasis. 3. Mild underlying emphysema. 4. Air-filled mildly distended proximal esophagus could be a sign of achalasia or presbyesophagus, for example. [facility] Radiology Study observation (narrative) [facility] CT Pulmonary arteries for pu lmonary embolusOrdered By: Tasha Quinn on 05-24-2023 [facility] Work Phone: LACTATE, BLOODon 05-24-2023 Lactate [Moles/Vol] 1.5 mmol/L 0.7 - 2. 0 mmol/L [facility] URINARY AGon 04-0 L. pneumophila 1 Ag IA Ql (U) Negative NEGATIVE [facility] MAGNESIUMon 05-24-2023 Magnesium [Mass/Vol] 2.0 mg/dL [facility] No Panel Informationon 05-23 [facility] PROCALCITONINon 05-24-2023 PROCALCITONIN 0.09 ng/mL 0.00 - 0.25 ng/mL [facility] Comment on above: PCT Interpretation Less than 0.10 ng/mL, antibiotic therapy strongly discouraged. 0.10-0.25 ng/mL, antibiotic therapy discouraged. 0.25-0.50 ng/mL, antibiotic therapy encouraged. Greater than 0.50 ng/mL, antibiotic therapy strongly encouraged. PROTIME-INRon 05-24-2023 INR Coag (PPP) [Relative time] 1.05 {INR} 0.85 - 1.10 [facility] [employer] Comment on above: 2.0-3.0 THERAPEUTIC RANGE 2.5-3.5 MECHANICAL VALVE RANGE PT Coag (PPP) [Time] 13.9 s [employer] [facility] PTTon 05-24-2023 aPTT Coag (Bld) [Time] 26.8 s [facility] Comment on above: CARDIAC AND PE/DVT THERAPUTIC RANGE 69-97 SEC VASCULAR/THREATENED LIMB THERAPUTIC RANGE 80-112 SEC [employer] Portable XR Chest Viewson IMPRESSION: Mild bibasilar atelectasis. RADIOLOGY EXAM: XR CHEST 1 VIE W PORTABLE HISTORY: The patient is a 72-year-old male, cough, SOB COMPARISON: 05/11/2023. FINDINGS: The lungs are well-inflated. There is some mild bibasilar atelectasis. The lungs are otherwise clear with no confluent airspace infiltrates, pleural effusions, or pneumothoraces. The heart and mediastinum are within normal limits. The trachea is midline. RADIOLOGY Peewee Han M D - 05/24/2023 EXAM: XR CHEST 1 VIEW PORTABLE HISTORY: The patient is a 72-year-old male, cough, SOB COMPARISON: 05/11/2023. FINDINGS: The lungs are well-inflated. There is some mild bibasilar atelectasis. The lungs are otherwise clear with no confluent airspace infiltrates, pleural effusions, or pneumothoraces. The heart and mediastinum are within normal limits. The trachea is midline. IMPRESSION IMPRESSION: Mild bibasilar atelectasis. [employer] [facility] Radiology Study observation (narrative) [employer] Portable XR Chest ViewsOrder ed By: Peewee Han on 05-24-2023 [facility] Work Phone: SEDIMENTATION RATE, AUTOMATE Don 05-24-2023 ESR (Bld) [Velocity] 15 mm/h [facility] STREP PNEUMONIAE ANTIGEN, UR INEon 05-24-2023 S. pneumoniae Ag Ql (U) Negative NEGATIVE [facility] TROPONIN I, HIGH SENSITIVITY on 05-24-2023 TROPONIN I, HIGH SENSITIVITY 14 pg/mL 0 - 20 pg/mL [facility] Comment on above: Indeterminant: >12 to 100 pg/mL female >20 to 100 pg/mL male Indicative of myocardial injury. Serial sampling is recommended, a change of greater than or equal to 20 pg/mL is indicative of acute coronary syndrome. [facility] TYPE AND SCREEN - POSSIBLE T RANSFUSIONon 05-24-2023 ABO and Rh group Nom (Bld ) Positive [facility] ARM BAND NUMBER [id number] [facility] Blood group antibody screen Ql Negative [facility] EXPIRATION DATE 05/27/2023,2351 [facility] URINALYSIS, MACROon 05-24-19 Bilirubin Ql (U) Negative NEGATIVE [facility] Clarity (U) CLEAR CLEAR [facility] Color (U) YELLOW YELLOW [facility] Glucose Test strip (U) [Mass/Vol] Negative NEGATIVE mg/dl [facility] Hemoglobin Ql (U) Negative NEGATIVE [facility] Interpretation and review of laboratory results Abnormal [facility] Ketones (U) [Mass/Vol] Negative NEGATIVE mg/dl [facility] Leukocyte esterase Test strip Ql (U) Negative NEGATIVE [facility] Nitrite Ql (U) Negative NEGATIVE [facility] pH (U) 7.5 [pH] High 5.0 - 7.0 [facility] Protein Ql (U) Negative NEGATIVE mg/dl [facility] Specific gravity (U) [Rel density] 1.020 1.010 - 1.025 [facility] Urobilinogen (U) [Mass/Vol] 1.0 mg/dL [facility] B12 & FOLATEon 05-11-2023 Cobalamin (Vitamin B12) [Mass/Vol] 836 pg/mL 239 - 931 PG/ML [facility] Folate [Mass/Vol] 12.7 ng/mL [facility] C REACTIVE PROTEINon 024 CRP [Mass/Vol] 83.1 mg/L High 0 - 10 MG/L [facility] CBC, EDIF, PLATELETon 2023 ABSOLUTE BASOPHIL COUNT 0.0 10*3/uL 0.0 - 0.2 10*3/uL [facility] Basophils/100 WBC (Bld) 0.0 % 0.0 - 2.0 % [facility] Differential cell count method Nom (Bld) AUTO DIFF % [facility] Eosinophils (Bld) [#/Vol] 0.0 10*3/uL 0.0 - 0.7 10*3/uL [facility] Eosinophils/100 WBC (Bld) 0.0 % 0.0 - 11.0 % [facility] Erythrocyte distribution width (RBC) [Ratio] 15.6 % High 11.5 - 14.5 % [facility] Hematocrit (Bld) [Volume fraction] 37.7 % Low 42.0 - 52.0 % [facility] Hemoglobin (Bld) [Mass/Vol] 12.8 g/dL Low [facility] Interpretation and review of laboratory results Abnormal [facility] Lymphocytes (Bld) [#/Vol] 0.3 10*3/uL Low 1.2 - 3.4 10*3/uL [facility] Lymphocytes/100 WBC (Bld) 2.1 % Low 20.0 - 55.0 % [facility] MCH (RBC) [Entitic mass] 29.8 pg 26.0 - 35.0 PG [facility] MCHC (RBC) [Mass/Vol] 33.8 g/dL [facility] MCV (RBC) [Entitic vol] 88.2 fL [facility] Monocytes (Bld) [#/Vol] 0.4 10*3/uL 0.0 - 0.7 10*3/uL [facility] Monocytes/100 WBC (Bld) 2.6 % 0.0 - 10.0 % [facility] Neutrophils (Bld) [#/Vol] 14.7 10*3/uL High 1.4 - 6.5 10*3/uL [facility] Neutrophils/100 WBC (Bld) 95.3 % High 37.0 - 75.0 % [facility] Platelet mean volume (Bld) [Entitic vol] 8.3 fL [facility] Platelets (Bld) [#/Vol] 189 10*3/uL 130 - 400 10*3/uL [facility] RBC (Bld) [#/Vol] 4.28 10*6/uL 4.0 - 6.1 10*6/uL [facility] WBC (Bld) [#/Vol] 15.5 10*3/uL High 3.6 - 11.0 10*3/uL [facility] COMPREHENSIVE METABOLIC PANE Pj 05-11-2023 Albumin [Mass/Vol] 3.3 G/dl Low 3.5 - 5.0 G/dl [facility] Albumin/Globulin [Mass ratio] 1.3 {ratio} RATIO [facility] ALP [Catalytic activity/Vol] 94 U/L [facility] ALT [Catalytic activity/Vol] 25 U/L NINF [facility] AST [Catalytic activity/Vol] 29 U/L [facility] Bilirubin [Mass/Vol] 0.6 mg/dL [facility] Calcium [Mass/Vol] 8.3 mg/dL Low [facility] Chloride [Moles/Vol] 104 mmol/L [facility] Comment on above: Please note: Triglyc eride levels of 600mg/dL or higher may positively bias chloride results by approximately 2.1 mmol CO2 [Moles/Vol] 33 mmol/L High [facility] Creatinine [Mass/Vol] 0.60 mg/dL Low [facility] GFR COMMENT Average GFR for 70+ years old = 75. [facility] Comment on above: Chronic Kidney disea se, GFR = <60. Kidney failure, GFR = <15. The GFR estimate is not adjusted for extreme body surface area or acute process, nor has it been validated for women or ethnic groups other than and . GFR/1.73 sq M.predicted among blacks MDRD (S/P/Bld) [Vol rate/Area] 170 mL/min/{1.73_m2} ml/min/1.73sq .m [facility] GFR/1.73 sq M.predicted among non-blacks MDRD (S/P/Bld) [Vol rate/Area] 141 mL/min/{1.73_m2} ml/min/1.73sq .m [facility] Glucose post fast [Mass/Vol] 143 mg/dL [facility] Comment on above: NORMAL <100 mg/dL PREDIABETES 101-126 mg/dL DIABETES 126 mg/dL or higher Potassium [Moles/Vol] 3.8 mmol/L [facility] Protein [Mass/Vol] 5.9 g/dL Low [facility] Sodium [Moles/Vol] 137 mmol/L [facility] Urea nitrogen [Mass/Vol] 27 mg/dL High [facility] FERRITINon 05-11-2023 Ferritin [Mass/Vol] 124 ng/mL [facility] GLUCOSE (POC DEVICE)on 05-10 GLUCOSE, POINT OF CARE 137 [facility] Interpretation and review of laboratory results Abnormal [facility] Operator [id number] [facility] GLUCOSE, POINT OF CARE 133 [facility] GLUCOSE, POINT OF CARE 171 [facility] GLUCOSE, POINT OF CARE 165 [facility] Interpretation and review of laboratory results Abnormal [facility] Operator [id number] [facility] IRON/IRON BINDING/TRANSFERRI Non 05-11-2023 Interpretation and review of laboratory results Abnormal [facility] Iron [Mass/Vol] 43 ug/dL Low [facility] Iron binding capacity [Mass/Vol] 326 [facility] Iron saturation [Mass fraction] 13 % [facility] MAGNESIUMon 05-11-2023 Magnesium [Mass/Vol] 2.4 mg/dL High [facility] No Panel Informationon 05-10 Interpretation and review of laboratory results Abnormal [facility] Operator [id number] [facility] Interpretation and review of laboratory results Abnormal [facility] PHOSPHATE, INORGANICon 05-10 Phosphate [Mass/Vol] 3.1 mg/dL [facility] PROCALCITONINon 05-11-2023 Interpretation and review of laboratory results Abnormal [facility] PROCALCITONIN 3.70 ng/mL High 0.00 - 0.25 ng/mL [facility] Comment on above: PCT Interpretation Less than 0.10 ng/mL, antibiotic therapy strongly discouraged. 0.10-0.25 ng/mL, antibiotic therapy discouraged. 0.25-0.50 ng/mL, antibiotic therapy encouraged. Greater than 0.50 ng/mL, antibiotic therapy strongly encouraged. [facility] SEDIMENTATION RATE, AUTOMATE Don 05-11-2023 ESR (Bld) [Velocity] 48 mm/h High [facility] Interpretation and review of laboratory results Abnormal [facility] VANCOMYCIN LEVEL, TROUGH (CT E DRUG LEVEL)on 05-11-2023 Vancomycin trough [Mass/Vol] 16.5 ug/mL [facility] XR Chest PA uprighton 2023 IMPRESSION: Clear lungs. RADIOLOGY EXAM: XR CHEST PA 1 VIEW , 05/11/2023 HISTORY: fu pna COMPARISON: Previous x-ray from 05/09/2023 TECHNIQUE: Portable AP upright x-ray of the chest. FINDINGS: Cardiac silhouette within normal limits. No hilar or mediastinal enlargement. The lungs and costophrenic angles are clear. Interval clearing of rate. No acute osseous findings. Gastrostomy tube noted. RADIOLOGY Ramakrishna Blankenship MD - 05/11/2023 EXAM: XR CHEST PA 1 VIEW , 05/11/2023 HISTORY: fu pna COMPARISON: Previous x-ray from 05/09/2023 TECHNIQUE: Portable AP upright x-ray of the chest. FINDINGS: Cardiac silhouette within normal limits. No hilar or mediastinal enlargement. The lungs and costophrenic angles are clear. Interval clearing of rate. No acute osseous findings. Gastrostomy tube noted. IMPRESSION IMPRESSION: Clear lungs. [facility] Radiology Study observation (narrative) [facility] XR Chest PA uprightOrdered B y: Ramakrishna Blankenship on 05-11-2023 [facility] Work Phone: C REACTIVE PROTEINon 024 CRP [Mass/Vol] 190.0 mg/L High 0 - 10 MG/L [facility] Interpretation and review of laboratory results Abnormal [facility] CBC, EDIF, PLATELETon 2023 ABSOLUTE BASOPHIL COUNT 0.0 10*3/uL 0.0 - 0.2 10*3/uL [facility] Basophils/100 WBC (Bld) 0.1 % 0.0 - 2.0 % [facility] Differential cell count method Nom (Bld) AUTO DIFF % [facility] Eosinophils (Bld) [#/Vol] 0.0 10*3/uL 0.0 - 0.7 10*3/uL [facility] Eosinophils/100 WBC (Bld) 0.0 % 0.0 - 11.0 % [facility] Erythrocyte distribution width (RBC) [Ratio] 15.7 % High 11.5 - 14.5 % [facility] Hematocrit (Bld) [Volume fraction] 39.0 % Low 42.0 - 52.0 % [facility] Hemoglobin (Bld) [Mass/Vol] 13.2 g/dL Low [facility] Interpretation and review of laboratory results Abnormal [facility] Lymphocytes (Bld) [#/Vol] 0.4 10*3/uL Low 1.2 - 3.4 10*3/uL [facility] Lymphocytes/100 WBC (Bld) 1.8 % Low 20.0 - 55.0 % [facility] MCH (RBC) [Entitic mass] 29.9 pg 26.0 - 35.0 PG [facility] MCHC (RBC) [Mass/Vol] 33.8 g/dL [facility] MCV (RBC) [Entitic vol] 88.4 fL [facility] Monocytes (Bld) [#/Vol] 0.2 10*3/uL 0.0 - 0.7 10*3/uL [facility] Monocytes/100 WBC (Bld) 1.0 % 0.0 - 10.0 % [facility] Neutrophils (Bld) [#/Vol] 19.3 10*3/uL High 1.4 - 6.5 10*3/uL [facility] Neutrophils/100 WBC (Bld) 97.1 % High 37.0 - 75.0 % [facility] Platelet mean volume (Bld) [Entitic vol] 8.2 fL [facility] Platelets (Bld) [#/Vol] 183 10*3/uL 130 - 400 10*3/uL [facility] RBC (Bld) [#/Vol] 4.41 10*6/uL 4.0 - 6.1 10*6/uL [facility] WBC (Bld) [#/Vol] 19.9 10*3/uL High 3.6 - 11.0 10*3/uL [facility] COMPREHENSIVE METABOLIC PANE Pj 05-10-2023 Albumin [Mass/Vol] 3.3 G/dl Low 3.5 - 5.0 G/dl [facility] Albumin/Globulin [Mass ratio] 1.1 {ratio} RATIO [facility] ALP [Catalytic activity/Vol] 102 U/L [facility] ALT [Catalytic activity/Vol] 26 U/L NINF [facility] AST [Catalytic activity/Vol] 27 U/L [facility] Bilirubin [Mass/Vol] 1.0 mg/dL [facility] Calcium [Mass/Vol] 8.4 mg/dL [facility] Chloride [Moles/Vol] 101 mmol/L [facility] Comment on above: Please note: Triglyc eride levels of 600mg/dL or higher may positively bias chloride results by approximately 2.1 mmol CO2 [Moles/Vol] 33 mmol/L High [facility] Creatinine [Mass/Vol] 0.67 mg/dL Low [facility] GFR COMMENT Average GFR for 70+ years old = 75. [facility] Comment on above: Chronic Kidney disea se, GFR = <60. Kidney failure, GFR = <15. The GFR estimate is not adjusted for extreme body surface area or acute process, nor has it been validated for women or ethnic groups other than and . GFR/1.73 sq M.predicted among blacks MDRD (S/P/Bld) [Vol rate/Area] 150 mL/min/{1.73_m2} ml/min/1.73sq .m [facility] GFR/1.73 sq M.predicted among non-blacks MDRD (S/P/Bld) [Vol rate/Area] 124 mL/min/{1.73_m2} ml/min/1.73sq .m [facility] Glucose post fast [Mass/Vol] 166 mg/dL High [facility] Comment on above: NORMAL <100 mg/dL PREDIABETES 101-126 mg/dL DIABETES 126 mg/dL or higher Interpretation and review of laboratory results Abnormal [facility] Potassium [Moles/Vol] 4.0 mmol/L [facility] Protein [Mass/Vol] 6.2 g/dL Low [facility] Sodium [Moles/Vol] 136 mmol/L Low [facility] Urea nitrogen [Mass/Vol] 21 mg/dL High [facility] GLUCOSE (POC DEVICE)on 05-09 GLUCOSE, POINT OF CARE 141 [facility] Interpretation and review of laboratory results Abnormal [facility] Operator [id number] [facility] GLUCOSE, POINT OF CARE 152 High [facility] GLUCOSE, POINT OF CARE 140 High [facility] Operator [id number] [facility] [employer] Supervisor [id number] [facility] GLUCOSE, POINT OF CARE 144 [facility] Interpretation and review of laboratory results Abnormal [facility] Operator [id number] [facility] HEMOGLOBIN A1Con 05-10-2023 Glucose [Mass/Vol] 123 mg/dL [facility] HbA1c (Bld) [Mass fraction] 5.9 % 0 - 6 % [facility] Comment on above: NORMAL <5.7% PREDIABETES 5.7-6.4% DIABETES 6.5% OR HIGHER [facility] LACTATE, BLOODon 05-10-2023 Lactate [Moles/Vol] 1.7 mmol/L 0.7 - 2. 0 mmol/L [facility] MAGNESIUMon 05-10-2023 Magnesium [Mass/Vol] 1.9 mg/dL [facility] No Panel Informationon 05-09 Interpretation and review of laboratory results Abnormal [facility] PHOSPHATE, INORGANICon 05-09 Phosphate [Mass/Vol] 3.1 mg/dL [facility] SEDIMENTATION RATE, AUTOMATE Don 05-10-2023 ESR (Bld) [Velocity] 44 mm/h [facility] Interpretation and review of laboratory results Abnormal [facility] VANCOMYCIN LEVEL, TROUGH (CT E DRUG LEVEL)on 05-10-2023 Interpretation and review of laboratory results Abnormal [facility] Vancomycin trough [Mass/Vol] 12.5 ug/mL Low [facility] ARTERIAL BLOOD GASon 024 Arterial patency Wrist artery --pre arterial puncture Positive [facility] Base excess Calc (BldV) [Moles/Vol] 6.6 mmol/L High [facility] Carboxyhemoglobin (Bld) [Mass fraction] 1.5 % [facility] CO2 (Bld) [Partial pressure] 47 mm[Hg] High [facility] HCO3 (Bld) [Moles/Vol] 31.9 mmol/L High [facility] Hemoglobin (Bld) [Mass/Vol] 13.8 g/dL [facility] Interpretation and review of laboratory results Abnormal [facility] Methemoglobin (BldC) [Mass fraction] 0.9 % [facility] O2 Device NASACANNULA [facility] Oxygen (Bld) [Partial pressure] 76 mm[Hg] Low [facility] Oxyhemoglobin (Bld) [Mass fraction] 94.0 % [facility] PATIENT PO2 SETTINGS 3L [facility] pH (Bld) 7.44 [pH] 7.350 - 7.450 [facility] Specimen site Narrative RRAD [facility] B-TYPE NATRIURETIC PEPTIDE ( BRAIN)on 05-09-2023 Natriuretic peptide B (Bld) [Mass/Vol] 48 pg/mL 0 - 100 pg/mL [facility] C REACTIVE PROTEINon 024 CRP [Mass/Vol] 67.9 mg/L High 0 - 10 MG/L [facility] Interpretation and review of laboratory results Abnormal [facility] CBC, EDIF, PLATELETon 2023 Differential cell count method Nom (Bld) MANUAL DIFF % [facility] Erythrocyte distribution width (RBC) [Ratio] 15.5 % High 11.5 - 14.5 % [facility] Hematocrit (Bld) [Volume fraction] 43.9 % 42.0 - 52.0 % [facility] Hemoglobin (Bld) [Mass/Vol] 15.0 g/dL [facility] Interpretation and review of laboratory results Abnormal [facility] MCH (RBC) [Entitic mass] 30.0 pg 26.0 - 35.0 PG [facility] MCHC (RBC) [Mass/Vol] 34.1 g/dL [facility] MCV (RBC) [Entitic vol] 87.9 fL [facility] Monocytes/100 WBC (Bld) 4 % 0.0 - 10.0 % [facility] Morphology Kurtis (Bld) [Interp] NORMAL [facility] Neutrophils/100 WBC (Bld) 96 % High 37.0 - 75.0 % [facility] Platelet mean volume (Bld) [Entitic vol] 7.8 fL [facility] Platelet morphology finding Nom (Bld) ADEQUATE [facility] Platelets (Bld) [#/Vol] 249 10*3/uL 130 - 400 10*3/uL [facility] RBC (Bld) [#/Vol] 5.00 10*6/uL 4.0 - 6.1 10*6/uL [facility] WBC (Bld) [#/Vol] 24.9 10*3/uL High 3.6 - 11.0 10*3/uL [facility] COMPREHENSIVE METABOLIC PANE Pj 05-09-2023 Albumin [Mass/Vol] 4.2 G/dl 3.5 - 5.0 G/dl [facility] Albumin/Globulin [Mass ratio] 1.5 {ratio} RATIO [facility] ALP [Catalytic activity/Vol] 129 U/L High [facility] ALT [Catalytic activity/Vol] 37 U/L NINF [facility] AST [Catalytic activity/Vol] 45 U/L [facility] Bilirubin [Mass/Vol] 0.8 mg/dL [facility] Calcium [Mass/Vol] 8.6 mg/dL [facility] Chloride [Moles/Vol] 96 mmol/L Low [facility] Comment on above: Please note: Triglyc eride levels of 600mg/dL or higher may positively bias chloride results by approximately 2.1 mmol CO2 [Moles/Vol] 35 mmol/L High [facility] Creatinine [Mass/Vol] 0.70 mg/dL [facility] GFR COMMENT Average GFR for 70+ years old = 75. [facility] Comment on above: Chronic Kidney disea se, GFR = <60. Kidney failure, GFR = <15. The GFR estimate is not adjusted for extreme body surface area or acute process, nor has it been validated for women or ethnic groups other than and . GFR/1.73 sq M.predicted among blacks MDRD (S/P/Bld) [Vol rate/Area] 143 mL/min/{1.73_m2} ml/min/1.73sq .m [facility] GFR/1.73 sq M.predicted among non-blacks MDRD (S/P/Bld) [Vol rate/Area] 118 mL/min/{1.73_m2} ml/min/1.73sq .m [facility] Glucose post fast [Mass/Vol] 146 mg/dL High [facility] Comment on above: NORMAL <100 mg/dL PREDIABETES 101-126 mg/dL DIABETES 126 mg/dL or higher Interpretation and review of laboratory results Abnormal [facility] Potassium [Moles/Vol] 4.0 mmol/L [facility] Protein [Mass/Vol] 7.0 g/dL [facility] Sodium [Moles/Vol] 134 mmol/L Low [facility] Urea nitrogen [Mass/Vol] 27 mg/dL High [facility] CT Pulmonary arteries for pu lmonary emboluson 05-09-2023 IMPRESSION: 1. No pulmonary embolus identified. 2. Large patchy consolidation within left lower lobe consistent with pneumonia. 3. Evidence for a multifocal bronchiolitis that predominantly involves the right middle and lower lobes. Small peripheral consolidation at the right lung base may be atelectasis or pneumonitis with extensive mucous plugging within the right lower lobe. Recommend correlation with the patient's aspiration risk. 4. Increase in size of a 4.1 cm medial consolidative mass within the right lower lobe adjacent to a large marginal osteophyte. This is suspected to be associated with atelectasis rather than an infiltrative process. Followup imaging in 1-3 months recommended to assess for response to therapy given the multiple findings within the lung parenchyma. 5. Enlarged subcarinal lymph node that can be reevaluated at time of followup imaging. 6. Severe stenosis of the proximal left subclavian artery due to soft plaque. 7. Evidence for pulmonary hypertension. 8. Bilateral renal cysts. RADIOLOGY EXAMINATION: CT PE STUDY, 05/09/2023 11:05 AM EDT HISTORY: Positive D-dimer. Cough and chest congestion. Fever. COMPARISON: March 03, 2023 and April 19, 2023. TECHNIQUE: CT angiography of the chest was performed with IV contrast. MIP (maximum intensity projection) images or 3D post processing was performed. CT dose reduction technique was used, including Automated Exposure Control. FINDINGS: There is patchy consolidation located medially within the left lower lobe with additional regions of poorly defined nodular opacities. Small posterior consolidation within the right costophrenic angle. In addition, there are innumerable tiny ground-glass nodules within the lungs, predominantly the right lower and middle lobes. A previously described medial consolidative mass within the right lower lobe has increased in size, measuring 4.1 cm in the AP dimension (3.2 cm, previously) and adjacent to a large marginal osteophyte. There is underlying mild pulmonary emphysematous changes with mucous plugging that is most severe within the right lower lobe. The heart size is at the upper limits of normal and there is no pericardial effusion. No coronary atherosclerotic vascular calcifications are identified. Soft plaque severely narrows the proximal left subclavian artery. There are subcentimeter mediastinal and hilar lymph nodes in additional to an enlarged subcarinal lymph node that measures 3.5 x 1.2 cm. Enlargement of the central pulmonary arteries consistent with pulmonary hypertension. The pulmonary arteries are opacified; no pulmonary embolus is identified. The included upper abdomen demonstrates a percutaneous gastrostomy tube as well as 2.7 cm and smaller bilateral renal cysts. Multilevel degenerative changes of the spine, severely involving the lower cervical spine. RADIOLOGY Jethro Stahl MD - 05/09/2023 EXAMINATION: CT PE STUDY, 05/09/2023 11:05 AM EDT HISTORY: Positive D-dimer. Cough and chest congestion. Fever. COMPARISON: March 03, 2023 and April 19, 2023. TECHNIQUE: CT angiography of the chest was performed with IV contrast. MIP (maximum intensity projection) images or 3D post processing was performed. CT dose reduction technique was used, including Automated Exposure Control. FINDINGS: There is patchy consolidation located medially within the left lower lobe with additional regions of poorly defined nodular opacities. Small posterior consolidation within the right costophrenic angle. In addition, there are innumerable tiny ground-glass nodules within the lungs, predominantly the right lower and middle lobes. A previously described medial consolidative mass within the right lower lobe has increased in size, measuring 4.1 cm in the AP dimension (3.2 cm, previously) and adjacent to a large marginal osteophyte. There is underlying mild pulmonary emphysematous changes with mucous plugging that is most severe within the right lower lobe. The heart size is at the upper limits of normal and there is no pericardial effusion. No coronary atherosclerotic vascular calcifications are identified. Soft plaque severely narrows the proximal left subclavian artery. There are subcentimeter mediastinal and hilar lymph nodes in additional to an enlarged subcarinal lymph node that measures 3.5 x 1.2 cm. Enlargement of the central pulmonary arteries consistent with pulmonary hypertension. The pulmonary arteries are opacified; no pulmonary embolus is identified. The included upper abdomen demonstrates a percutaneous gastrostomy tube as well as 2.7 cm and smaller bilateral renal cysts. Multilevel degenerative changes of the spine, severely involving the lower cervical spine. IMPRESSION IMPRESSION: 1. No pulmonary embolus identified. 2. Large patchy consolidation within left lower lobe consistent with pneumonia. 3. Evidence for a multifocal bronchiolitis that predominantly involves the right middle and lower lobes. Small peripheral consolidation at the right lung base may be atelectasis or pneumonitis with extensive mucous plugging within the right lower lobe. Recommend correlation with the patient's aspiration risk. 4. Increase in size of a 4.1 cm medial consolidative mass within the right lower lobe adjacent to a large marginal osteophyte. This is suspected to be associated with atelectasis rather than an infiltrative process. Followup imaging in 1-3 months recommended to assess for response to therapy given the multiple findings within the lung parenchyma. 5. Enlarged subcarinal lymph node that can be reevaluated at time of followup imaging. 6. Severe stenosis of the proximal left subclavian artery due to soft plaque. 7. Evidence for pulmonary hypertension. 8. Bilateral renal cysts. [facility]narrative[facility] Pulmonary arteries for pu lmonary embolusOrdered By: Jethro Stahl on 05-09-2023 [facility] Work Phone: Cardiac echo study Procedure on 05-09-2023 APPROVED REPORT Other Information Study Quality: Technically Difficult. Technically limited study due to inability to position patient, patient has a permentant feeding tube, unable to aquire subcostal images. . Conclusion The left ventricle is normal size. There is a speckled pattern to the myocardium suggesting infiltrative disease. Mild diastolic dysfunction is present (impaired relaxation pattern). The left ventricular systolic function is normal. The left ventricular ejection fraction is within the normal range. There is normal LV segmental wall motion. LVEF is 65-70%. The right ventricle is normal size. The right ventricular systolic function is normal. Aortic valve is trileaflet. Mild aortic valve sclerosis. Mild tricuspid regurgitation. No pulmonary hypertension. Left Ventricle The left ventricle is normal size. There is a speckled pattern to the myocardium suggesting infiltrative disease. The left ventricular systolic function is normal. The left ventricular ejection fraction is within the normal range. There is normal left ventricular wall thickness. There is normal LV segmental wall motion. Mild diastolic dysfunction is present (impaired relaxation pattern). There is no ventricular septal defect visualized. No left ventricle thrombus noted on this study. LVEF is 65-70%. Right Ventricle The right ventricle is normal size. The right ventricular systolic function is normal. There is normal right ventricular wall thickness. Atria The left atrium size is normal. The right atrium size is normal. The interatrial septum is intact with no evidence for an atrial septal defect. Aortic Valve Aortic valve is trileaflet. Mild aortic valve sclerosis. No hemodynamically significant valvular aortic stenosis. No aortic regurgitation is present. Cannot exclude aortic valve vegetation. Mitral Valve The mitral valve is normal in structure. No evidence of mitral valve stenosis. There is no mitral valve regurgitation noted. There is no evidence of mitral valve vegetations. There is no evidence of mitral valve prolapse. Tricuspid Valve The tricuspid valve is normal in structure. There is no tricuspid valve stenosis. Mild tricuspid regurgitation. No pulmonary hypertension. There is no tricuspid valve vegetations. Pulmonic Valve Pulmonic valve is not well visualized. Not appreciated. There is no pulmonic valvular regurgitation. Cannot exclude pulmonic valve vegetation. Great Vessels The aortic root is normal in size. Pulmonary artery is not well visualized. The ascending aorta is normal in size. The IVC was not visualized. Pericardium There is no pericardial effusion. There is no pleural effusion. EXAM: Comprehensive 2D, Doppler, and color-flow Echocardiogram with contrast Imaging system used: [employer] Vivid E9 Echo Enhancing Agent Indication: Endocardial border delineation Agent(s) / Amount(s) Used: Definity 3 cc 2D Dimensions IVSd 1.0 cm M: 0.6-1.0 LVEF (Miramontes's) 58.83 % M: 52 - 72 PWd 1.0 cm M: 0.6 - 1.0 EF AP4-a2DQ 62.88 % LVDd 4.0 cm M: 4.2 - 5.8 EF AP2-a2DQ 58.01 % LVDs 2.76 cm M: 2.5 - 4.0 EF BP-a2DQ 58.83 % Aortic Root 2.93 cm M: 3.1 - 3.7 LVESV 30 mL Aortic Root Index 1.5 cm/m2 LVEDV 72.52 mL M: 62 - 150 Left Atrium 3.11 cm M: 3.0 - 4.0 LV Volume Index 36.26 mL/m2 M: 34 - 74 LVOT 2.09 cm (M/F) 1.5-2.5 LA Volume 35.9 mL TAPSE 2.3 >1.7 cm LA Volume Index 17.95 mL/m2 (M/F) 16-34 RV Major 2.47 cm RV Minor 7.69 cm RVIDd 3.20 cm (M/F) 2.5-4.1 Right Atrium 4.5 cm (M/F) 2.9-4.5 LV Diastology E/A Ratio 0.8 Septal E' 0.11 (>=.07 m/s) LAT E' 0.14 (>=.10 m/s) E/LAT E' Ratio 4.99 (<=14) E/E AVG 5.58 Septal E/E' 6.33 Aortic Valve LVOT Max 1.14 (0.7-1.1 m/s) LVOT VTI 23.58 cm LVOT Peak GR 5.23 mmHg LVOT Mean GR 2.51 mmHg AV DI 0.98 (>0.25) AoV Peak Julien. 1.40 (0.5-1.3 m/s) AV Vmean 0.97 m/s AO Peak GR. 7.82 mmHg AO Mean GR. 4.08 (<5 mmHg) AO VTI 24.0 (18-25 cm) MANISHA (VTI) 3.35 (2.5-4.5 cm2) Mitral Valve MV E Max Julien. 0.7 (0.4-1.3 m/s) MV A Velocity 0.84 (0.4-1.3 m/s) E/A Ratio 0.82 MV PHT 49.89 ms MVA PHT 4.41 cm2 MV Dec [place] 281.97 cm/s2 MV Decel. Time 242.50 (160-240 ms) Pulmonary Valve PV Peak Velocity 0.9 (0.5-1.5 m/s) PV maxPG 2.9 mmHg PV Vmax 0.9 m/s Tricuspid Valve TR P. Velocity 2.67 m/s RAP Estimate 3 mmHg RVSP 31.58 mmHg TR maxPG 28.58 mmHg S' 0.15 m/s CARDIOLOGY Mustapha Harmon II, MD - 05/09/2023 APPROVED REPORT Other Information Study Quality: Technically Difficult. Technically limited study due to inability to position patient, patient has a permentant feeding tube, unable to aquire subcostal images. . Conclusion The left ventricle is normal size. There is a speckled pattern to the myocardium suggesting infiltrative disease. Mild diastolic dysfunction is present (impaired relaxation pattern). The left ventricular systolic function is normal. The left ventricular ejection fraction is within the normal range. There is normal LV segmental wall motion. LVEF is 65-70%. The right ventricle is normal size. The right ventricular systolic function is normal. Aortic valve is trileaflet. Mild aortic valve sclerosis. Mild tricuspid regurgitation. No pulmonary hypertension. Left Ventricle The left ventricle is normal size. There is a speckled pattern to the myocardium suggesting infiltrative disease. The left ventricular systolic function is normal. The left ventricular ejection fraction is within the normal range. There is normal left ventricular wall thickness. There is normal LV segmental wall motion. Mild diastolic dysfunction is present (impaired relaxation pattern). There is no ventricular septal defect visualized. No left ventricle thrombus noted on this study. LVEF is 65-70%. Right Ventricle The right ventricle is normal size. The right ventricular systolic function is normal. There is normal right ventricular wall thickness. Atria The left atrium size is normal. The right atrium size is normal. The interatrial septum is intact with no evidence for an atrial septal defect. Aortic Valve Aortic valve is trileaflet. Mild aortic valve sclerosis. No hemodynamically significant valvular aortic stenosis. No aortic regurgitation is present. Cannot exclude aortic valve vegetation. Mitral Valve The mitral valve is normal in structure. No evidence of mitral valve stenosis. There is no mitral valve regurgitation noted. There is no evidence of mitral valve vegetations. There is no evidence of mitral valve prolapse. Tricuspid Valve The tricuspid valve is normal in structure. There is no tricuspid valve stenosis. Mild tricuspid regurgitation. No pulmonary hypertension. There is no tricuspid valve vegetations. Pulmonic Valve Pulmonic valve is not well visualized. Not appreciated. There is no pulmonic valvular regurgitation. Cannot exclude pulmonic valve vegetation. Great Vessels The aortic root is normal in size. Pulmonary artery is not well visualized. The ascending aorta is normal in size. The IVC was not visualized. Pericardium There is no pericardial effusion. There is no pleural effusion. EXAM: Comprehensive 2D, Doppler, and color-flow Echocardiogram with contrast Imaging system used: [employer] Vivid E9 Echo Enhancing Agent Indication: Endocardial border delineation Agent(s) / Amount(s) Used: Definity 3 cc 2D Dimensions IVSd 1.0 cm M: 0.6-1.0LVEF (Miramontes's)58.83 % M: 52 - 72 PWd 1.0 cm M: 0.6 - 1.0EF AP4-a2DQ62.88 % LVDd 4.0 cm M: 4.2 - 5.8EF AP2-a2DQ58.01 % LVDs 2.76 cm M: 2.5 - 4.0EF BP-a2DQ58.83 % Aortic Root 2.93 cm M: 3.1 - 3.3FONZM96 mL Aortic Root Index1.5 cm/d8OLMVC10.52 mL M: 62 - 150 Left Atrium 3.11 cm M: 3.0 - 4.0LV Volume Index36.26 mL/m2 M: 34 - 74 LVOT2.09 cm (M/F) 1.5-2.5LA Utrhxc34.9 mL TAPSE 2.3 >1.7 cmLA Volume Index17.95 mL/m2 (M/F) 16-34 RV Major 2.47 cm RV Minor7.69 cm RVIDd3.20 cm (M/F) 2.5-4.1 Right Atrium 4.5 cm (M/F) 2.9-4.5 LV Diastology E/A Ratio 0.8Septal E'0.11 (>=.07 m/s) LAT E'0.14 (>=.10 m/s)E/LAT E' Ratio4.99 (<=14) E/E AVG 5.58Septal E/E'6.33 Aortic Valve LVOT Max1.14 (0.7-1.1 m/s)LVOT VTI23.58 cm LVOT Peak GR5.23 mmHgLVOT Mean GR2.51 mmHg AV DI0.98 (>0.25)AoV Peak Julien.1.40 (0.5-1.3 m/s) AV Vmean 0.97 m/Estephania Peak GR.7.82 mmHg AO Mean GR.4.08 (<5 mmHg)AO VTI24.0 (18-25 cm) MANISHA (VTI)3.35 (2.5-4.5 cm2) Mitral Valve MV E Max Julien.0.7 (0.4-1.3 m/s)MV A Velocity0.84 (0.4-1.3 m/s) E/A Ratio0.82MV PHT49.89 ms MVA PHT4.41 cm2MV Dec [place] 281.97 cm/s2 MV Decel. Ykei049.50 (160-240 ms) Pulmonary Valve PV Peak Velocity0.9 (0.5-1.5 m/s)PV maxPG2.9 mmHg PV Vmax0.9 m/s Tricuspid Valve TR P. Velocity2.67 m/sRAP Estimate3 mmHg RVSP31.58 mmHgTR maxPG 28.58 mmHg S'0.15 m/s [facility] Radiology Study observation (narrative) [facility] Cardiac echo study Procedure Ordered By: Mustapha Harmon on 05-09-2023 [facility] Work Phone: D-DIMER,QUANTITATIVEon 05-08 Fibrin D-dimer FEU (PPP) [Mass/Vol] 1.74 Critically high [facility] Comment on above: If result is greater than the cutoff value of 0.50 g/ml then the potential for PE or DVT exists. Other conditions exist which may cause a falsely elevated level. Please correlate clinically, including radiological findings and other clinical parameters. Result called to and read back by: MARLINE 05/09/2023 @ 10:47 by SHRUTHI Interpretation and review of laboratory results Abnormal [facility] INFLUENZA A AND B, PCRon FLUAV and FLUBV Ag IF Nom (Unsp spec) Negative NEGATIVE [facility] FLUBV Ag IA Ql (Unsp spec) Negative NEGATIVE [facility] Comment on above: TESTING PERFORMED BY ROBERTA [facility] LACTATE, BLOODon 05-09-2023 Interpretation and review of laboratory results Abnormal [facility] Lactate [Moles/Vol] 2.7 mmol/L Critically high 0.7 - 2.0 mmol/L [facility] Comment on above: PLEASE REPEAT INITIA L CRITICAL IN 3 HOURS IF ED OR INPATIENT SEPSIS PATIENT Result called to read back by: LEE PALMA 05/09/2023 @ 21:51 by SHEKHAR [facility] Interpretation and review of laboratory results Abnormal [facility] Lactate [Moles/Vol] 2.7 mmol/L Critically high 0.7 - 2.0 mmol/L [facility] Comment on above: PLEASE REPEAT INITIA L CRITICAL IN 3 HOURS IF ED OR INPATIENT SEPSIS PATIENT Result called to read back by: CALLUM 05/09/2023 @ 18:39 by [facility] Interpretation and review of laboratory results Abnormal [facility] Lactate [Moles/Vol] 3.9 mmol/L Critically high 0.7 - 2.0 mmol/L [facility] Comment on above: PLEASE REPEAT INITIA L CRITICAL IN 3 HOURS IF ED OR INPATIENT SEPSIS PATIENT CALLED AND READ BY Andra NOLEN ON [id number] AT 1429 BY [facility] Interpretation and review of laboratory results Abnormal [facility] Lactate [Moles/Vol] 2.1 mmol/L Critically high 0.7 - 2.0 mmol/L [facility] Comment on above: PLEASE REPEAT INITIA L CRITICAL IN 3 HOURS IF ED OR INPATIENT SEPSIS PATIENT Result called to read back by: Veronica HORAN RN 05/09/2023 @ 10:29 by [facility] URINARY AGon 04-18 L. pneumophila 1 Ag IA Ql (U) Negative NEGATIVE [facility] NOVEL CORONAVIRUS LAB 1 - NA SOPHARYNGEALon 05-09-2023 NARRATIVE -1 This test was performed using isothermal ROBERTA and has been approved as Emergency Use Authorization (EUA) for the qualitative detection [id number] nucleic acid. [facility] SARS-CoV-2 (COVID-19) RNA ROBERTA+probe Ql (Unsp spec) Not detected NOT DETECTED [facility] Comment on above: Negative results do not preclude SARS-CoV-2 infection and should not be used as the sole basis for treatment or other patient management decisions. Optimum specimen types and timing for peak viral levels during infections caused by SARS-CoV-2 has not been determined. The possibility of a false negative result should especially be considered if the patient's recent exposures or clinical presentation suggest that SARS-CoV-2 infection is probable, and diagnostic tests for other causes of illness (e.g., other respiratory illness) are negative. Collection of a new specimen and re-testing may be necessary if the patient is critically ill or clinically deteriorating. [facility] No Panel Informationon 05-08 [facility] PROCALCITONINon 05-09-2023 Interpretation and review of laboratory results Abnormal [facility] PROCALCITONIN 1.77 ng/mL High 0.00 - 0.25 ng/mL [facility] Comment on above: PCT Interpretation Less than 0.10 ng/mL, antibiotic therapy strongly discouraged. 0.10-0.25 ng/mL, antibiotic therapy discouraged. 0.25-0.50 ng/mL, antibiotic therapy encouraged. Greater than 0.50 ng/mL, antibiotic therapy strongly encouraged. [facility] SCREEN: MRSA ONLY, NARES (IS OLATION SCREEN)on 05-09-2023 MRSA isol Org specific cx Ql (Nose) Negative NEGATIVE [facility] STAPHYOCOCCUS AUREUS BY PCR Negative NEGATIVE [facility] Comment on above: TESTING PERFORMED BY PCR [facility] SEDIMENTATION RATE, AUTOMATE Don 05-09-2023 ESR (Bld) [Velocity] 19 mm/h [facility] STREP PNEUMONIAE ANTIGEN, UR INEon 05-09-2023 S. pneumoniae Ag Ql (U) Negative NEGATIVE [facility] TROPONIN I, HIGH SENSITIVITY on 05-09-2023 Interpretation and review of laboratory results Abnormal [facility] TROPONIN I, HIGH SENSITIVITY 32 pg/mL High 0 - 20 pg/mL [facility] Comment on above: Indeterminant: >12 to 100 pg/mL female >20 to 100 pg/mL male Indicative of myocardial injury. Serial sampling is recommended, a change of greater than or equal to 20 pg/mL is indicative of acute coronary syndrome. [facility] Interpretation and review of laboratory results Abnormal [facility] TROPONIN I, HIGH SENSITIVITY 44 pg/mL High 0 - 20 pg/mL [facility] Comment on above: Indeterminant: >12 to 100 pg/mL female >20 to 100 pg/mL male Indicative of myocardial injury. Serial sampling is recommended, a change of greater than or equal to 20 pg/mL is indicative of acute coronary syndrome. [facility] Interpretation and review of laboratory results Abnormal [facility] TROPONIN I, HIGH SENSITIVITY 24 pg/mL High 0 - 20 pg/mL [facility] Comment on above: Indeterminant: >12 to 100 pg/mL female >20 to 100 pg/mL male Indicative of myocardial injury. Serial sampling is recommended, a change of greater than or equal to 20 pg/mL is indicative of acute coronary syndrome. [facility] URINALYSIS, MACROon 05-09-19 24 Bilirubin Ql (U) Negative NEGATIVE [facility] Clarity (U) CLEAR CLEAR [facility] Color (U) YELLOW YELLOW [facility] Glucose Test strip (U) [Mass/Vol] Negative NEGATIVE mg/dl [facility] Hemoglobin Ql (U) Negative NEGATIVE [facility] Ketones (U) [Mass/Vol] Negative NEGATIVE mg/dl [facility] Leukocyte esterase Test strip Ql (U) Negative NEGATIVE [facility] Nitrite Ql (U) Negative NEGATIVE [facility] pH (U) 6.5 [pH] 5.0 - 7.0 [facility] Protein Ql (U) Negative NEGATIVE mg/dl [facility] Specific gravity (U) [Rel density] 1.015 1.010 - 1.025 [facility] Urobilinogen (U) [Mass/Vol] 0.2 mg/dL [facility] VITAMIN D (25-HYDROXY,TOTAL) on 05-09-2023 25-hydroxyvitamin D [Mass/Vol] 48.4 NG/ML [facility] Comment on above: DEFICIENT <20 NG/ML INSUFFICIENT 20-<30 NG/ML SUFFICIENT 30-100 NG/ML POTENTIAL TOXICITY >100 NG/ML [facility] XR Chest PA uprighton 2023 IMPRESSION: 1. Mild reticular opacities present in the right lung base, which was seen on the previous exam as tree-in-bud opacities. Also infrahilar peribronchial thickening is present. These findings are possibly due to infectious/inflammator y airways disease. RADIOLOGY EXAM: XR CHEST PA 1 VIEW HISTORY: fever and cough COMPARISON: 04/19/2023 TECHNIQUE: Single AP view of the chest. FINDINGS: Mild reticular opacity is present in the right lung base, which was seen as tree-in-bud opacities on the recent prior exam. Some peribronchial thickening is noted in the left infrahilar region. No pleural effusion or pneumothorax. The cardiomediastinal silhouette is unremarkable. No acute osseous or soft tissue abnormality. RADIOLOGY Azalia Noriega M D - 05/09/2023 EXAM: XR CHEST PA 1 VIEW HISTORY: fever and cough COMPARISON: 04/19/2023 TECHNIQUE: Single AP view of the chest. FINDINGS: Mild reticular opacity is present in the right lung base, which was seen as tree-in-bud opacities on the recent prior exam. Some peribronchial thickening is noted in the left infrahilar region. No pleural effusion or pneumothorax. The cardiomediastinal silhouette is unremarkable. No acute osseous or soft tissue abnormality. IMPRESSION IMPRESSION: 1. Mild reticular opacities present in the right lung base, which was seen on the previous exam as tree-in-bud opacities. Also infrahilar peribronchial thickening is present. These findings are possibly due to infectious/inflammator y airways disease. [facility] Radiology Study observation (narrative) [facility] XR Chest PA uprightOrdered B y: Azalia Noriega on 05-09-2023 [facility] Work Phone: BLOOD GAS VENOUSon Base excess Calc (BldV) [Moles/Vol] 7.5 mmol/L [facility] Carboxyhemoglobin (Bld) [Mass fraction] 1.9 % [facility] CO2 (BldC) [Partial pressure] 50 [facility] HCO3 (Bld) [Moles/Vol] 33.2 mmol/L High [facility] Hemoglobin (Bld) [Mass/Vol] 13.6 g/dL [facility] Interpretation and review of laboratory results Abnormal [facility] Methemoglobin (BldC) [Mass fraction] 1.0 % [facility] Oxygen (BldC) [Partial pressure] 73 High [facility] Oxyhemoglobin (Bld) [Mass fraction] 93.2 % [facility] pH (BldC) 7.43 High 7.31 - 7.41 [facility] C REACTIVE PROTEINon 024 CRP [Mass/Vol] 17.7 mg/L High 0 - 10 MG/L [facility] CBC, EDIF, PLATELETon 2023 ABSOLUTE BASOPHIL COUNT 0.0 10*3/uL 0.0 - 0.2 10*3/uL [facility] Basophils/100 WBC (Bld) 0.0 % 0.0 - 2.0 % [facility] Differential cell count method Nom (Bld) AUTO DIFF % [facility] Eosinophils (Bld) [#/Vol] 0.0 10*3/uL 0.0 - 0.7 10*3/uL [facility] Eosinophils/100 WBC (Bld) 0.0 % 0.0 - 11.0 % [facility] Erythrocyte distribution width (RBC) [Ratio] 15.3 % High 11.5 - 14.5 % [facility] Hematocrit (Bld) [Volume fraction] 40.3 % Low 42.0 - 52.0 % [facility] Hemoglobin (Bld) [Mass/Vol] 13.5 g/dL Low [facility] Interpretation and review of laboratory results Abnormal [facility] Lymphocytes (Bld) [#/Vol] 0.4 10*3/uL Low 1.2 - 3.4 10*3/uL [facility] Lymphocytes/100 WBC (Bld) 4.7 % Low 20.0 - 55.0 % [facility] MCH (RBC) [Entitic mass] 29.4 pg 26.0 - 35.0 PG [facility] MCHC (RBC) [Mass/Vol] 33.5 g/dL [facility] MCV (RBC) [Entitic vol] 87.8 fL [facility] Monocytes (Bld) [#/Vol] 0.3 10*3/uL 0.0 - 0.7 10*3/uL [facility] Monocytes/100 WBC (Bld) 3.8 % 0.0 - 10.0 % [facility] Neutrophils (Bld) [#/Vol] 8.3 10*3/uL High 1.4 - 6.5 10*3/uL [facility] Neutrophils/100 WBC (Bld) 91.5 % High 37.0 - 75.0 % [facility] Platelet mean volume (Bld) [Entitic vol] 8.6 fL [facility] Platelets (Bld) [#/Vol] 204 10*3/uL 130 - 400 10*3/uL [facility] RBC (Bld) [#/Vol] 4.59 10*6/uL 4.0 - 6.1 10*6/uL [facility] WBC (Bld) [#/Vol] 9.1 10*3/uL 3.6 - 11.0 10*3/uL [facility] GLUCOSE (POC DEVICE)on 04-19 GLUCOSE, POINT OF CARE 153 [facility] Interpretation and review of laboratory results Abnormal [facility] Operator [id number] [facility] MAGNESIUMon 04-20-2023 Magnesium [Mass/Vol] 2.0 mg/dL [facility] No Panel Informationon 04-19 Interpretation and review of laboratory results Abnormal [facility] PROTIME-INRon 04-20-2023 INR Coag (PPP) [Relative time] 1.17 {INR} High 0.85 - 1.10 [facility] Comment on above: 2.0-3.0 THERAPEUTIC RANGE 2.5-3.5 MECHANICAL VALVE RANGE Interpretation and review of laboratory results Abnormal [facility] PT Coag (PPP) [Time] 15.0 s [facility] RENAL FUNCTION PANELon 04-19 Albumin [Mass/Vol] 3.4 G/dl Low 3.5 - 5.0 G/dl [facility] Calcium [Mass/Vol] 8.7 mg/dL [facility] Chloride [Moles/Vol] 104 mmol/L [facility] Comment on above: Please note: Triglyc eride levels of 600mg/dL or higher may positively bias chloride results by approximately 2.1 mmol CO2 [Moles/Vol] 33 mmol/L High [facility] Creatinine [Mass/Vol] 0.60 mg/dL Low [facility] GFR COMMENT Average GFR for 70+ years old = 75. [facility] Comment on above: Chronic Kidney disea se, GFR = <60. Kidney failure, GFR = <15. The GFR estimate is not adjusted for extreme body surface area or acute process, nor has it been validated for women or ethnic groups other than and . GFR/1.73 sq M.predicted among blacks MDRD (S/P/Bld) [Vol rate/Area] 170 mL/min/{1.73_m2} ml/min/1.73sq .m [facility] GFR/1.73 sq M.predicted among non-blacks MDRD (S/P/Bld) [Vol rate/Area] 141 mL/min/{1.73_m2} ml/min/1.73sq .m [facility] Glucose post fast [Mass/Vol] 142 mg/dL High [facility] Comment on above: NORMAL <100 mg/dL PREDIABETES 101-126 mg/dL DIABETES 126 mg/dL or higher Phosphate [Mass/Vol] 3.1 mg/dL [facility] Potassium [Moles/Vol] 4.2 mmol/L [facility] Sodium [Moles/Vol] 138 mmol/L [facility] Urea nitrogen [Mass/Vol] 19 mg/dL [facility] SEDIMENTATION RATE, AUTOMATE Don 04-20-2023 ESR (Bld) [Velocity] 33 mm/h High [facility] Interpretation and review of laboratory results Abnormal [facility] TROPONIN I, HIGH SENSITIVITY on 04-20-2023 TROPONIN I, HIGH SENSITIVITY 12 pg/mL 0 - 20 pg/mL [facility] Comment on above: Indeterminant: >12 to 100 pg/mL female >20 to 100 pg/mL male Indicative of myocardial injury. Serial sampling is recommended, a change of greater than or equal to 20 pg/mL is indicative of acute coronary syndrome. [facility] TROPONIN I, HIGH SENSITIVITY 12 pg/mL 0 - 20 pg/mL [facility] Comment on above: Indeterminant: >12 to 100 pg/mL female >20 to 100 pg/mL male Indicative of myocardial injury. Serial sampling is recommended, a change of greater than or equal to 20 pg/mL is indicative of acute coronary syndrome. [facility] B-TYPE NATRIURETIC PEPTIDE ( BRAIN)on 04-19-2023 Natriuretic peptide B (Bld) [Mass/Vol] 44 pg/mL 0 - 100 pg/mL [facility] C REACTIVE PROTEINon 024 CRP [Mass/Vol] 22.7 mg/L High 0 - 10 MG/L [facility] CBC, EDIF, PLATELETon 2023 ABSOLUTE BASOPHIL COUNT 0.0 10*3/uL 0.0 - 0.2 10*3/uL [facility] Basophils/100 WBC (Bld) 0.1 % 0.0 - 2.0 % [facility] Differential cell count method Nom (Bld) AUTO DIFF % [facility] Eosinophils (Bld) [#/Vol] 0.0 10*3/uL 0.0 - 0.7 10*3/uL [facility] Eosinophils/100 WBC (Bld) 0.0 % 0.0 - 11.0 % [facility] Erythrocyte distribution width (RBC) [Ratio] 14.9 % High 11.5 - 14.5 % [facility] Hematocrit (Bld) [Volume fraction] 41.8 % Low 42.0 - 52.0 % [facility] Hemoglobin (Bld) [Mass/Vol] 14.2 g/dL [facility] Interpretation and review of laboratory results Abnormal [facility] Lymphocytes (Bld) [#/Vol] 0.2 10*3/uL Low 1.2 - 3.4 10*3/uL [facility] Lymphocytes/100 WBC (Bld) 2.1 % Low 20.0 - 55.0 % [facility] MCH (RBC) [Entitic mass] 29.9 pg 26.0 - 35.0 PG [facility] MCHC (RBC) [Mass/Vol] 34.0 g/dL [facility] MCV (RBC) [Entitic vol] 88.0 fL [facility] Monocytes (Bld) [#/Vol] 0.0 10*3/uL 0.0 - 0.7 10*3/uL [facility] Monocytes/100 WBC (Bld) 0.4 % 0.0 - 10.0 % [facility] Neutrophils (Bld) [#/Vol] 9.7 10*3/uL High 1.4 - 6.5 10*3/uL [facility] Neutrophils/100 WBC (Bld) 97.4 % High 37.0 - 75.0 % [facility] Platelet mean volume (Bld) [Entitic vol] 8.3 fL [facility] Platelets (Bld) [#/Vol] 214 10*3/uL 130 - 400 10*3/uL [facility] RBC (Bld) [#/Vol] 4.75 10*6/uL 4.0 - 6.1 10*6/uL [facility] WBC (Bld) [#/Vol] 10.0 10*3/uL 3.6 - 11.0 10*3/uL [facility] CT Chest WO contraston 04-18 IMPRESSION: 1. Right lower lobe bronchiolitis and peribronchial thickening. 2. Centrilobular emphysema. Left lower lobe 1.6 mm pulmonary nodule. 3. Stable posterior medial right lower lobe juxtapleural 3 x 1 cm consolidation adjacent to a sessile thoracic endplate bone spur. 4. Dilated pulmonary artery may be seen with pulmonary hypertension. 5. PEG tube terminates within the stomach. RADIOLOGY EXAMINATION: CT CHES T WITHOUT CONTRAST HISTORY: History of aspiration. Evaluate for pneumonia COMPARISON: CTA chest 03 March 2023 TECHNIQUE: CT examination of the chest without IV contrast. Coronal and sagittal reformations were performed. Dose reduction techniques were achieved by using automated exposure control and/or adjustment of mA and/or kV according to patient size and/or use of iterative reconstruction technique. FINDINGS: Lungs and pleura: There is centrilobular emphysema. Right lower lobe peribronchial thickening and right lower lobe peripheral juxtapleural tiny nodules, and minimal posterior left lower lobe juxtapleural atelectasis. Similar posterior medial right lower lobe curvilinear 3 x 1 cm soft tissue opacity abuts a thoracic vertebra sessile bone spur. No pneumothorax, new airspace consolidation, or new pleural effusion. There is a left lower lobe juxtapleural 1.6 mm pulmonary nodule. Heart: Normal size. No pericardial effusion. Aorta: Aortic arch and great vessel atherosclerotic plaque. No aneurysm. Mediastinum: Similar dilated right main pulmonary artery. No mediastinal adenopathy. Upper abdomen: PEG tube terminates within the stomach. Chest wall: Multilevel thoracic bridging osteophytes and intervertebral narrowing. No axillary adenopathy. RADIOLOGY Dinesh Ackerman MD - 04/19/2023 EXAMINATION: CT CHEST WITHOUT CONTRAST HISTORY: History of aspiration. Evaluate for pneumonia COMPARISON: CTA chest 03 March 2023 TECHNIQUE: CT examination of the chest without IV contrast. Coronal and sagittal reformations were performed. Dose reduction techniques were achieved by using automated exposure control and/or adjustment of mA and/or kV according to patient size and/or use of iterative reconstruction technique. FINDINGS: Lungs and pleura: There is centrilobular emphysema. Right lower lobe peribronchial thickening and right lower lobe peripheral juxtapleural tiny nodules, and minimal posterior left lower lobe juxtapleural atelectasis. Similar posterior medial right lower lobe curvilinear 3 x 1 cm soft tissue opacity abuts a thoracic vertebra sessile bone spur. No pneumothorax, new airspace consolidation, or new pleural effusion. There is a left lower lobe juxtapleural 1.6 mm pulmonary nodule. Heart: Normal size. No pericardial effusion. Aorta: Aortic arch and great vessel atherosclerotic plaque. No aneurysm. Mediastinum: Similar dilated right main pulmonary artery. No mediastinal adenopathy. Upper abdomen: PEG tube terminates within the stomach. Chest wall: Multilevel thoracic bridging osteophytes and intervertebral narrowing. No axillary adenopathy. IMPRESSION IMPRESSION: 1. Right lower lobe bronchiolitis and peribronchial thickening. 2. Centrilobular emphysema. Left lower lobe 1.6 mm pulmonary nodule. 3. Stable posterior medial right lower lobe juxtapleural 3 x 1 cm consolidation adjacent to a sessile thoracic endplate bone spur. 4. Dilated pulmonary artery may be seen with pulmonary hypertension. 5. PEG tube terminates within the stomach. [facility] Radiology Study observation (narrative) [facility] CT Chest WO contrastOrdered By: Dinesh Ackerman on 04-19-2023 [facility] Work Phone: [facility] URINARY AGon 03-0 L. pneumophila 1 Ag IA Ql (U) Negative NEGATIVE [facility] MAGNESIUMon 04-19-2023 Magnesium [Mass/Vol] 1.9 mg/dL [facility] No Panel Informationon 04-18 [facility] Interpretation and review of laboratory results Abnormal [facility] PREALBUMINon 04-19-2023 Interpretation and review of laboratory results Abnormal [facility] Prealbumin [Mass/Vol] 17.2 mg/dL Low [facility] PROCALCITONINon 04-19-2023 PROCALCITONIN 0.07 ng/mL 0.00 - 0.25 ng/mL [facility] Comment on above: PCT Interpretation Less than 0.10 ng/mL, antibiotic therapy strongly discouraged. 0.10-0.25 ng/mL, antibiotic therapy discouraged. 0.25-0.50 ng/mL, antibiotic therapy encouraged. Greater than 0.50 ng/mL, antibiotic therapy strongly encouraged. [facility] PROTIME-INRon 04-19-2023 INR Coag (PPP) [Relative time] 1.12 {INR} High 0.85 - 1.10 [facility] Comment on above: 2.0-3.0 THERAPEUTIC RANGE 2.5-3.5 MECHANICAL VALVE RANGE Interpretation and review of laboratory results Abnormal [facility] PT Coag (PPP) [Time] 14.5 s High [facility] RENAL FUNCTION PANELon 04-18 Albumin [Mass/Vol] 3.7 G/dl 3.5 - 5.0 G/dl [facility] Calcium [Mass/Vol] 8.9 mg/dL [facility] Chloride [Moles/Vol] 101 mmol/L [facility] Comment on above: Please note: Triglyc eride levels of 600mg/dL or higher may positively bias chloride results by approximately 2.1 mmol CO2 [Moles/Vol] 32 mmol/L High [facility] Creatinine [Mass/Vol] 0.75 mg/dL [facility] GFR COMMENT Average GFR for 70+ years old = 75. [facility] Comment on above: Chronic Kidney disea se, GFR = <60. Kidney failure, GFR = <15. The GFR estimate is not adjusted for extreme body surface area or acute process, nor has it been validated for women or ethnic groups other than and . GFR/1.73 sq M.predicted among blacks MDRD (S/P/Bld) [Vol rate/Area] 132 mL/min/{1.73_m2} ml/min/1.73sq .m [facility] GFR/1.73 sq M.predicted among non-blacks MDRD (S/P/Bld) [Vol rate/Area] 109 mL/min/{1.73_m2} ml/min/1.73sq .m [facility] Glucose post fast [Mass/Vol] 172 mg/dL High [facility] Comment on above: NORMAL <100 mg/dL PREDIABETES 101-126 mg/dL DIABETES 126 mg/dL or higher Phosphate [Mass/Vol] 2.9 mg/dL [facility] Potassium [Moles/Vol] 3.9 mmol/L [facility] Sodium [Moles/Vol] 141 mmol/L [facility] Urea nitrogen [Mass/Vol] 21 mg/dL High [facility] SCREEN: MRSA ONLY, NARES (IS OLATION SCREEN)on 04-19-2023 MRSA isol Org specific cx Ql (Nose) Negative NEGATIVE [facility] STAPHYOCOCCUS AUREUS BY PCR Negative NEGATIVE [facility] Comment on above: TESTING PERFORMED BY PCR [facility] SEDIMENTATION RATE, AUTOMATE Don 04-19-2023 ESR (Bld) [Velocity] 35 mm/h High [facility] Interpretation and review of laboratory results Abnormal [facility] STREP PNEUMONIAE ANTIGEN, UR INEon 04-19-2023 S. pneumoniae Ag Ql (U) Negative NEGATIVE [facility] TROPONIN I, HIGH SENSITIVITY on 04-19-2023 TROPONIN I, HIGH SENSITIVITY 12 pg/mL 0 - 20 pg/mL [facility] Comment on above: Indeterminant: >12 to 100 pg/mL female >20 to 100 pg/mL male Indicative of myocardial injury. Serial sampling is recommended, a change of greater than or equal to 20 pg/mL is indicative of acute coronary syndrome. [facility] TROPONIN I, HIGH SENSITIVITY 11 pg/mL 0 - 20 pg/mL [facility] Comment on above: Indeterminant: >12 to 100 pg/mL female >20 to 100 pg/mL male Indicative of myocardial injury. Serial sampling is recommended, a change of greater than or equal to 20 pg/mL is indicative of acute coronary syndrome. [facility] XR Chest PA uprighton 2023 IMPRESSION: 1. No acute cardiopulmonary abnormality. RADIOLOGY EXAM: XR CHEST PA 1 VIEW HISTORY: SOB. Aspiration COMPARISON: Chest radiograph of the same date. TECHNIQUE: One view of the chest was obtained. FINDINGS: The cardiac silhouette is stable in size. The lungs are clear. There is no significant pneumothorax or pleural effusion. No acute osseous abnormality is seen. RADIOLOGY Inocencio Max MD - 04/19/2023 EXAM: XR CHEST PA 1 VIEW HISTORY: SOB. Aspiration COMPARISON: Chest radiograph of the same date. TECHNIQUE: One view of the chest was obtained. FINDINGS: The cardiac silhouette is stable in size. The lungs are clear. There is no significant pneumothorax or pleural effusion. No acute osseous abnormality is seen. IMPRESSION IMPRESSION: 1. No acute cardiopulmonary abnormality. [facility] Radiology Study observation (narrative) [facility] XR Chest PA uprightOrdered B y: Inocencio Max on 04-19-2023 [facility] Work Phone: [employer] 04-08-2023 ABSOLUTE BAS 0.0 10*3/uL Normal 0.0-0.2 [facility] ABSOLUTE EOS 0.0 10*3/uL Normal 0.0-0.7 [facility] ABSOLUTE NEUTROPHIL COUNT 11.3 10*3/uL High 1.4-6.5 [facility] Basophils/100 WBC (Bld) 0.2 % Normal 0.0-2.0 [facility] DTYPE AUTO DIFF Normal [facility] Eosinophils/100 WBC (Bld) 0.0 % Normal 0.0-11.0 [facility] Lymphocytes (Bld) [#/Vol] 0.8 10*3/uL Low 1.2-3.4 [facility] Lymphocytes/100 WBC (Bld) 6.2 % Low 20.0-55.0 [facility] Monocytes (Bld) [#/Vol] 0.7 10*3/uL Normal 0.0-0.7 [facility] Monocytes/100 WBC (Bld) 5.5 % Normal 0.0-10.0 [facility] Neutrophils/100 WBC (Bld) 88.1 % High 37.0-75.0 [facility] Erythrocyte distribution width (RBC) [Ratio] 15.2 % High 11.5-14.5 [facility] Hematocrit (Bld) [Volume fraction] 40.9 % Low 42.0-52.0 [facility] Hemoglobin (Bld) [Mass/Vol] 13.5 g/dL Low 14.0-18.0 [facility] MCH (RBC) [Entitic mass] 29.0 pg Normal 26.0-35.0 [facility] MCHC (RBC) [Mass/Vol] 32.9 g/dL Normal 27.0-37.0 [facility] MCV (RBC) [Entitic vol] 88.1 fL Normal 80.0-100.0 [facility] Platelet mean volume (Bld) [Entitic vol] 7.8 fL Normal 7.4-11.0 [facility] Platelets (Bld) [#/Vol] 271 10*3/uL Normal 130-400 [facility] RBC (Bld) [#/Vol] 4.64 10*6/uL Normal 4.0-6.1 [facility] WBC (Bld) [#/Vol] 12.9 10*3/uL High 3.6-11.0 [facility] CBC, EDIF, PLATELETon 2023 ABSOLUTE BASOPHIL COUNT 0.0 10*3/uL 0.0 - 0.2 10*3/uL [facility] Basophils/100 WBC (Bld) 0.2 % 0.0 - 2.0 % [facility] Differential cell count method Nom (Bld) AUTO DIFF % [facility] Eosinophils (Bld) [#/Vol] 0.0 10*3/uL 0.0 - 0.7 10*3/uL [facility] Eosinophils/100 WBC (Bld) 0.0 % 0.0 - 11.0 % [facility] Erythrocyte distribution width (RBC) [Ratio] 15.2 % High 11.5 - 14.5 % [facility] Hematocrit (Bld) [Volume fraction] 40.9 % Low 42.0 - 52.0 % [facility] Hemoglobin (Bld) [Mass/Vol] 13.5 g/dL Low [facility] Interpretation and review of laboratory results Abnormal [facility] Lymphocytes (Bld) [#/Vol] 0.8 10*3/uL Low 1.2 - 3.4 10*3/uL [facility] Lymphocytes/100 WBC (Bld) 6.2 % Low 20.0 - 55.0 % [facility] MCH (RBC) [Entitic mass] 29.0 pg 26.0 - 35.0 PG [facility] MCHC (RBC) [Mass/Vol] 32.9 g/dL [facility] MCV (RBC) [Entitic vol] 88.1 fL [facility] Monocytes (Bld) [#/Vol] 0.7 10*3/uL 0.0 - 0.7 10*3/uL [facility] Monocytes/100 WBC (Bld) 5.5 % 0.0 - 10.0 % [facility] Neutrophils (Bld) [#/Vol] 11.3 10*3/uL High 1.4 - 6.5 10*3/uL [facility] Neutrophils/100 WBC (Bld) 88.1 % High 37.0 - 75.0 % [facility] Platelet mean volume (Bld) [Entitic vol] 7.8 fL [facility] Platelets (Bld) [#/Vol] 271 10*3/uL 130 - 400 10*3/uL [facility] RBC (Bld) [#/Vol] 4.64 10*6/uL 4.0 - 6.1 10*6/uL [facility] WBC (Bld) [#/Vol] 12.9 10*3/uL High 3.6 - 11.0 10*3/uL [facility] MAGNESIUMon 04-08-2023 Magnesium [Mass/Vol] 1.9 mg/dL Normal 1.6-2.3 [facility] Magnesium [Mass/Vol] 1.9 mg/dL [facility] No Panel Informationon 04-08 [facility] RENAL FUNCTION PANELon 04-08 Albumin [Mass/Vol] 3.3 G/dl Low 3.5 - 5.0 G/dl [facility] Calcium [Mass/Vol] 8.4 mg/dL [facility] Chloride [Moles/Vol] 107 mmol/L [facility] Comment on above: Please note: Triglyc eride levels of 600mg/dL or higher may positively bias chloride results by approximately 2.1 mmol CO2 [Moles/Vol] 30 mmol/L [facility] Creatinine [Mass/Vol] 0.70 mg/dL [facility] GFR COMMENT Average GFR for 70+ years old = 75. [facility] Comment on above: Chronic Kidney disea se, GFR = <60. Kidney failure, GFR = <15. The GFR estimate is not adjusted for extreme body surface area or acute process, nor has it been validated for women or ethnic groups other than and . GFR/1.73 sq M.predicted among blacks MDRD (S/P/Bld) [Vol rate/Area] 143 mL/min/{1.73_m2} ml/min/1.73sq .m [facility] GFR/1.73 sq M.predicted among non-blacks MDRD (S/P/Bld) [Vol rate/Area] 118 mL/min/{1.73_m2} ml/min/1.73sq .m [facility] Glucose post fast [Mass/Vol] 117 mg/dL High [facility] Comment on above: NORMAL <100 mg/dL PREDIABETES 101-126 mg/dL DIABETES 126 mg/dL or higher Interpretation and review of laboratory results Abnormal [facility] Phosphate [Mass/Vol] 3.4 mg/dL [facility] Potassium [Moles/Vol] 4.2 mmol/L [facility] Sodium [Moles/Vol] 140 mmol/L [facility] Urea nitrogen [Mass/Vol] 18 mg/dL [facility] RENAL PANEL,FASTINGon 2023 ALBUMIN 3.3 G/dl Low 3.5-5.0 [facility] Calcium [Mass/Vol] 8.4 mg/dL Normal 8.4-10.2 [facility] Chloride [Moles/Vol] 107 mmol/L Normal 98-107 [facility] Comment on above: Result Comment: Plea se note: Triglyceride levels of 600mg/dL or higher may positively bias chloride results by approximately 2.1 mmol CO2 [Moles/Vol] 30 mmol/L Normal 22-30 [facility] Creatinine [Mass/Vol] 0.70 mg/dL Normal 0.7-1.2 [facility] EST. GFR, 143 ml/min/1.73sq.m Normal [facility] EST. GFR,Non 118 ml/min/1.73sq.m Normal [facility] GFR Information Average GFR for 70+ years old = 75. Normal [facility] Comment on above: Result Comment: Cardiac Exercise Physiologist raul Kidney disease, GFR = <60. Kidney failure, GFR = <15. The GFR estimate is not adjusted for extreme body surface area or acute process, nor has it been validated for women or ethnic groups other than and . Glucose [Mass/Vol] 117 mg/dL High 70-100 [facility] Comment on above: Result Comment: NORMAL <100 mg/dL PREDIABETES 101-126 mg/dL DIABETES 126 mg/dL or higher PHOSPHOROUS 3.4 MG/DL Normal 2.5-4.5 [facility] Potassium [Moles/Vol] 4.2 mmol/L Normal 3.5-5.1 [facility] Sodium [Moles/Vol] 140 mmol/L Normal 137-145 [facility] Urea nitrogen [Mass/Vol] 18 mg/dL Normal 7-20 [facility] INTERVENTIONAL UPPER ENDOSCO PYon 04-07-2023 Body surface area Derived from formula 1.97 m2 [facility] Gastroenterology Patient Name: Amy Sun Procedure Date: 04/07/2023 7:48 AM Date of : 1950 Admit Type: Outpatient Age: 72 Room: OR3 Gender: Male Note Status: Finalized Attending MD: Arley GODOY MD, [id number] Instrument Name: [id number] Procedure: Upper GI endoscopy Attending Participation: I personally performed the entire procedure. Indications: Place PEG because patient is unable to eat, Place PEG due to aspiration risk Providers: Arley GODOY MD Referring MD: Arley GODOY MD Complications: No immediate complications. Estimated Blood Loss: Estimated blood loss was minimal. Estimated blood loss was minimal. Medicines: Propofol per Anesthesia Procedure: Pre-Anesthesia Assessment: - Prior to the procedure, a History and Physical was performed, and patient medications, allergies and sensitivities were reviewed. The patient's tolerance of previous anesthesia was reviewed. - The risks and benefits of the procedure and the sedation options and risks were discussed with the patient. All questions were answered and informed consent was obtained. - Pre-procedure physical examination revealed no contraindications to sedation. - ASA Grade Assessment: III - A patient with severe systemic disease. - After reviewing the risks and benefits, the patient was deemed in satisfactory condition to undergo the procedure. After obtaining informed consent, the endoscope was passed under direct vision. Throughout the procedure, the patient's blood pressure, pulse, and oxygen saturations were monitored continuously. The Endoscope was introduced through the mouth, and advanced to the second part of duodenum. The upper GI endoscopy was accomplished without difficulty. The patient tolerated the procedure well. Findings: The esophagus was normal. The stomach was normal. The examined duodenum was normal. The patient was placed in the supine position for PEG placement. The stomach was insufflated to appose gastric and abdominal waiet. A site was located in the cardia with excellent transillumination for placement. The abdominal wall was marked and prepped in a sterile manner. The area was anesthetized with 5 mL of 1% lidocaine. The trocar needle was introduced through the abdominal wall and into the stomach under direct endoscopic view. A snare was introduced through the endoscope and opened in the gastric lumen. The guide wire was passed through the trocar and into the open snare. The snare was closed around the guide wire. The endoscope and snare were removed, pulling the wire out through the mouth. A skin incision was made at the site of needle insertion. The endoscopically removable 20 Fr Bard gastrostomy tube was lubricated. The G-tube was tied to the guide wire and pulled through the mouth and into the stomach. The trocar needle was removed, and the gastrostomy tube was pulled out from the stomach through the skin. The external bumper was attached to the gastrostomy tube, and the tube was cut to remove the guide wire. The final position of the gastrostomy tube was confirmed by relook endoscopy, and skin marking noted to be 2 cm at the external bumper. The final tension and compression of the abdominal wall by the PEG tube and external bumper were checked and revealed that the bumper was moderately tight and mildly deforming the skin. The feeding tube was capped, and the tube site cleaned and dressed. Impression: - Normal esophagus. - Normal stomach. - Normal examined duodenum. - No specimens collected. Recommendation: - Please follow the post-PEG recommendations including: Nutrition consult for formula and volume and use PEG today after checked by physician. Procedure Code(s): --- Professional --- 74520, Esophagogastroduodenos copy, flexible, transoral; with directed placement of percutaneous gastrostomy tube Diagnosis Code(s): --- (more content not included)... LAB, [facility] Radiology Study observation (narrative) [facility] MRSA SCREENon 04-07-2023 MRSA DNA ROBERTA+probe Ql (Unsp spec) Negative Normal NEGATIVE [facility] STAPH AUREUS SCREEN Negative Normal NEGATIVE [facility] Comment on above: Result Comment: TEST ING PERFORMED BY PCR REQUEST FOR [facility] SENDOUT on 04-07-2023 Miscellaneous Test 1 [id number] TO [facility] YEAST CODE CAURS [facility] SCREEN: MRSA ONLY, NARES (IS OLATION SCREEN)on 04-07-2023 MRSA isol Org specific cx Ql (Nose) Negative NEGATIVE [facility] STAPHYOCOCCUS AUREUS BY PCR Negative NEGATIVE [facility] Comment on above: TESTING PERFORMED BY PCR [facility] SENDOUT TESTon 04-07-2023 SENDOUT TEST [id number] TO [facility] CODE CAURS Normal [facility] C REACTIVE PROTEINon 024 CRP [Mass/Vol] 152.1 mg/L High 0 - 10 MG/L [facility] Interpretation and review of laboratory results Abnormal [facility] CBC, EDIF, PLATELETon 2023 ABSOLUTE BASOPHIL COUNT 0.0 10*3/uL 0.0 - 0.2 10*3/uL [facility] Basophils/100 WBC (Bld) 0.4 % 0.0 - 2.0 % [facility] Differential cell count method Nom (Bld) AUTO DIFF % [facility] Eosinophils (Bld) [#/Vol] 0.1 10*3/uL 0.0 - 0.7 10*3/uL [facility] Eosinophils/100 WBC (Bld) 0.9 % 0.0 - 11.0 % [facility] Erythrocyte distribution width (RBC) [Ratio] 15.5 % High 11.5 - 14.5 % [facility] Hematocrit (Bld) [Volume fraction] 40.4 % Low 42.0 - 52.0 % [facility] Hemoglobin (Bld) [Mass/Vol] 12.9 g/dL Low [facility] Interpretation and review of laboratory results Abnormal [facility] Lymphocytes (Bld) [#/Vol] 0.8 10*3/uL Low 1.2 - 3.4 10*3/uL [facility] Lymphocytes/100 WBC (Bld) 9.1 % Low 20.0 - 55.0 % [facility] MCH (RBC) [Entitic mass] 28.1 pg 26.0 - 35.0 PG [facility] MCHC (RBC) [Mass/Vol] 31.9 g/dL [facility] MCV (RBC) [Entitic vol] 87.9 fL [facility] Monocytes (Bld) [#/Vol] 0.7 10*3/uL 0.0 - 0.7 10*3/uL [facility] Monocytes/100 WBC (Bld) 8.0 % 0.0 - 10.0 % [facility] Neutrophils (Bld) [#/Vol] 7.2 10*3/uL High 1.4 - 6.5 10*3/uL [facility] Neutrophils/100 WBC (Bld) 81.6 % High 37.0 - 75.0 % [facility] Platelet mean volume (Bld) [Entitic vol] 8.4 fL [facility] Platelets (Bld) [#/Vol] 176 10*3/uL 130 - 400 10*3/uL [facility] RBC (Bld) [#/Vol] 4.59 10*6/uL 4.0 - 6.1 10*6/uL [facility] WBC (Bld) [#/Vol] 8.8 10*3/uL 3.6 - 11.0 10*3/uL [facility] COMPREHENSIVE METABOLIC PANE Pj 03-04-2023 Albumin [Mass/Vol] 3.3 G/dl Low 3.5 - 5.0 G/dl [facility] Albumin/Globulin [Mass ratio] 1.1 {ratio} RATIO [facility] ALP [Catalytic activity/Vol] 141 U/L High [facility] ALT [Catalytic activity/Vol] 43 U/L NINF [facility] AST [Catalytic activity/Vol] 63 U/L High [facility] Bilirubin [Mass/Vol] 1.1 mg/dL [facility] Calcium [Mass/Vol] 8.4 mg/dL [facility] Chloride [Moles/Vol] 106 mmol/L [facility] Comment on above: Please note: Triglyc eride levels of 600mg/dL or higher may positively bias chloride results by approximately 2.1 mmol CO2 [Moles/Vol] 29 mmol/L [facility] Creatinine [Mass/Vol] 0.71 mg/dL [facility] GFR COMMENT Average GFR for 70+ years old = 75. [facility] Comment on above: Chronic Kidney disea se, GFR = <60. Kidney failure, GFR = <15. The GFR estimate is not adjusted for extreme body surface area or acute process, nor has it been validated for women or ethnic groups other than and . GFR/1.73 sq M.predicted among blacks MDRD (S/P/Bld) [Vol rate/Area] 140 mL/min/{1.73_m2} ml/min/1.73sq .m [facility] GFR/1.73 sq M.predicted among non-blacks MDRD (S/P/Bld) [Vol rate/Area] 116 mL/min/{1.73_m2} ml/min/1.73sq .m [facility] Glucose post fast [Mass/Vol] 99 mg/dL [facility] Comment on above: NORMAL <100 mg/dL PREDIABETES 101-126 mg/dL DIABETES 126 mg/dL or higher Interpretation and review of laboratory results Abnormal [facility] Potassium [Moles/Vol] 3.7 mmol/L [facility] Protein [Mass/Vol] 6.3 g/dL [facility] Sodium [Moles/Vol] 139 mmol/L [facility] Urea nitrogen [Mass/Vol] 19 mg/dL [facility] URINARY AGon 02-17 L. pneumophila 1 Ag IA Ql (U) Negative NEGATIVE [facility] MAGNESIUMon 03-04-2023 Magnesium [Mass/Vol] 1.9 mg/dL [employer] [facility] No Panel Informationon 03-04 [facility] PROCALCITONINon 03-04-2023 PROCALCITONIN 0.20 ng/mL 0.00 - 0.25 ng/mL [facility] Comment on above: PCT Interpretation Less than 0.10 ng/mL, antibiotic therapy strongly discouraged. 0.10-0.25 ng/mL, antibiotic therapy discouraged. 0.25-0.50 ng/mL, antibiotic therapy encouraged. Greater than 0.50 ng/mL, antibiotic therapy strongly encouraged. [facility] PROTIME-INRon 03-04-2023 INR Coag (PPP) [Relative time] 1.31 {INR} High 0.85 - 1.10 [facility] Comment on above: 2.0-3.0 THERAPEUTIC RANGE 2.5-3.5 MECHANICAL VALVE RANGE Interpretation and review of laboratory results Abnormal [facility] Coag (PPP) [Time] 16.4 s High [employer] [facility] RF videography Hypopharynx a nd Esophagus Views W liquid and paste contrast PO during swallowingon 03-04-2023 IMPRESSION: 1. Aspiration of thin and nectar thick barium. Penetration of honey thick barium. 2. Please see the speech pathologist's report for additional information and recommendations. RADIOLOGY EXAMINATION: XR FLUO RO MODIFIED BARIUM SWALLOW WITH SPEECH, 03/04/2023 2:13 PM EST HISTORY: dysphagia COMPARISON: 07/30/2022 TECHNIQUE: Examination was performed in conjunction with speech pathology. Varying consistencies of barium were administered under lateral fluoroscopic observation. Fluoroscopy time: 3 minutes minutes. FINDINGS: Thin liquid: Penetration and aspiration. Chloride: Penetration and aspiration. Honey: Deep penetration, without aspiration Puree: No penetration or aspiration, noting significant residual pharyngeal contents eventually expectorated by the patient. RADIOLOGY Madi Rios M D - 03/04/2023 EXAMINATION: XR FLUORO MODIFIED BARIUM SWALLOW WITH SPEECH, 03/04/2023 2:13 PM EST HISTORY: dysphagia COMPARISON: 07/30/2022 TECHNIQUE: Examination was performed in conjunction with speech pathology. Varying consistencies of barium were administered under lateral fluoroscopic observation. Fluoroscopy time: 3 minutes minutes. FINDINGS: Thin liquid: Penetration and aspiration. Chloride: Penetration and aspiration. Honey: Deep penetration, without aspiration Puree: No penetration or aspiration, noting significant residual pharyngeal contents eventually expectorated by the patient. IMPRESSION IMPRESSION: 1. Aspiration of thin and nectar thick barium. Penetration of honey thick barium. 2. Please see the speech pathologist's report for additional information and recommendations. [facility] Radiology Study observation (narrative) [facility] RF videography Hypopharynx a nd Esophagus Views W liquid and paste contrast PO during swallowingOrdered By: Madi Rios on 03-04-2023 [employer] Work Phone: STREP PNEUMONIAE ANTIGEN, UR INEon 03-04-2023 S. pneumoniae Ag Ql (U) Negative NEGATIVE [facility] C REACTIVE PROTEINon 024 CRP [Mass/Vol] 180.1 mg/L High 0 - 10 MG/L [facility] Interpretation and review of laboratory results Abnormal [facility] CBC, EDIF, [place] 2023 ABSOLUTE BASOPHIL COUNT 0.1 10*3/uL 0.0 - 0.2 10*3/uL [facility] Basophils/100 WBC (Bld) 0.5 % 0.0 - 2.0 % [facility] Differential cell count method Nom (Bld) AUTO DIFF % [facility] Eosinophils (Bld) [#/Vol] 0.0 10*3/uL 0.0 - 0.7 10*3/uL [facility] Eosinophils/100 WBC (Bld) 0.0 % 0.0 - 11.0 % [facility] Erythrocyte distribution width (RBC) [Ratio] 15.4 % High 11.5 - 14.5 % [facility] Hematocrit (Bld) [Volume fraction] 47.7 % 42.0 - 52.0 % [facility] Hemoglobin (Bld) [Mass/Vol] 15.4 g/dL [facility] Interpretation and review of laboratory results Abnormal [facility] Lymphocytes (Bld) [#/Vol] 0.3 10*3/uL Low 1.2 - 3.4 10*3/uL [facility] Lymphocytes/100 WBC (Bld) 1.3 % Low 20.0 - 55.0 % [facility] MCH (RBC) [Entitic mass] 28.2 pg 26.0 - 35.0 PG [facility] MCHC (RBC) [Mass/Vol] 32.2 g/dL [facility] MCV (RBC) [Entitic vol] 87.5 fL [facility] Monocytes (Bld) [#/Vol] 1.1 10*3/uL High 0.0 - 0.7 10*3/uL [facility] Monocytes/100 WBC (Bld) 5.5 % 0.0 - 10.0 % [facility] Neutrophils (Bld) [#/Vol] 18.2 10*3/uL High 1.4 - 6.5 10*3/uL [facility] Neutrophils/100 WBC (Bld) 92.7 % High 37.0 - 75.0 % [facility] Platelet mean volume (Bld) [Entitic vol] 8.0 fL [facility] Platelets (Bld) [#/Vol] 208 10*3/uL 130 - 400 10*3/uL [facility] RBC (Bld) [#/Vol] 5.45 10*6/uL 4.0 - 6.1 10*6/uL [facility] WBC (Bld) [#/Vol] 19.6 10*3/uL High 3.6 - 11.0 10*3/uL [facility] COMPREHENSIVE METABOLIC PANE Pj 03-03-2023 Albumin [Mass/Vol] 4.4 G/dl 3.5 - 5.0 G/dl [facility] Albumin/Globulin [Mass ratio] 1.2 {ratio} RATIO [facility] ALP [Catalytic activity/Vol] 109 U/L [facility] ALT [Catalytic activity/Vol] 38 U/L NINF [facility] AST [Catalytic activity/Vol] 42 U/L [facility] Bilirubin [Mass/Vol] 1.5 mg/dL High [facility] Calcium [Mass/Vol] 9.5 mg/dL [facility] Chloride [Moles/Vol] 98 mmol/L [facility] Comment on above: Please note: Triglyc eride levels of 600mg/dL or higher may positively bias chloride results by approximately 2.1 mmol CO2 [Moles/Vol] 32 mmol/L High [facility] Creatinine [Mass/Vol] 0.80 mg/dL [facility] GFR COMMENT Average GFR for 70+ years old = 75. [facility] Comment on above: Chronic Kidney disea se, GFR = <60. Kidney failure, GFR = <15. The GFR estimate is not adjusted for extreme body surface area or acute process, nor has it been validated for women or ethnic groups other than and . GFR/1.73 sq M.predicted among blacks MDRD (S/P/Bld) [Vol rate/Area] 122 mL/min/{1.73_m2} ml/min/1.73sq .m [facility] GFR/1.73 sq M.predicted among non-blacks MDRD (S/P/Bld) [Vol rate/Area] 101 mL/min/{1.73_m2} ml/min/1.73sq .m [facility] Glucose post fast [Mass/Vol] 139 mg/dL High [facility] Comment on above: NORMAL <100 mg/dL PREDIABETES 101-126 mg/dL DIABETES 126 mg/dL or higher Interpretation and review of laboratory results Abnormal [facility] Potassium [Moles/Vol] 3.6 mmol/L [facility] Protein [Mass/Vol] 8.0 g/dL [facility] Sodium [Moles/Vol] 137 mmol/L [facility] Urea nitrogen [Mass/Vol] 22 mg/dL High [facility] CT Pulmonary arteries for pu lmonary emboluson 03-03-2023 IMPRESSION: 1. I do not see any evidence of pulmonary embolism. There is believed to be pulmonary hypertension given prominently dilated right and left main pulmonary arteries. 2. There is believed to be reactive lio hypertrophy in the hilar and infracarinal regions. 3. The lung chen to me suggest centrilobular emphysema. There is diffuse peribronchial thickening and diffuse mild interstitial accentuation. 4. In the right lower lobe posteriorly there is subpleural airspace consolidation in a curvilinear fashion. There is also infiltrative change in the right paravertebral region in the lower lobe. There is some minimal airspace infiltrate associated with the major fissure on the right in the right upper lobe. There are several nodular irregular subcentimeter densities also seen in the right lung, both in the right lower lobe and right middle lobe. In the left lung I see some patchy consolidation and pneumonic type markings in the lingula near the diaphragm. The remaining left lung is fairly well aerated. Overall the findings to me are suggestive of developing pneumonia predominately centered in the right lower lobe with associated significant peribronchial thickening and reactive lio changes. There are some patchy areas of most likely early airspace infiltrate rather than pulmonary nodularity. There is also, especially in the lung bases, diffuse interstitial thickening. 5. Both kidneys appear to have cystic changes incidentally. RADIOLOGY EXAMINATION: CT PE STUDY, 03/03/2023, 9:54 AM EST. HISTORY: Cough and chest congestion. COMPARISON: Chest x-ray 07/07/2020. TECHNIQUE: CT angiography of the chest was performed with IV contrast. MIP (maximum intensity projection) images or 3D post processing was performed. CT dose reduction technique was used, including Automated Exposure Control. The patient 2 mm axial bolus IV enhanced images of the chest. 75 mL of Omnipaque 350 was given. There are coronal and sagittal reformations. They are viewed in soft tissue and lung and bone windows. FINDINGS: CTA pulmonary arteries: Both pulmonary arteries appear to be well opacified. I do not see any filling defect to suggest any pulmonary embolism at this time. Both pulmonary arteries are however considerably dilated supportive of pulmonary hypertension. There is no pericardial effusion. The esophagus as visualized was satisfactory. There is lio tissue identified in the hilar region and in the infracarinal area, most likely reactive. Review of lung windows suggests a moderate centrilobular emphysematous appearance. There is diffuse peribronchial thickening. In the posterior right lower lobe there is curvilinear airspace consolidation and patchy interstitial change and interstitial accentuation which would be supportive of some developing right lower lobe pneumonia. In the right paravertebral region in the right lower lobe there is patchy airspace consolidation as well. At present this appears more infiltrative than masslike. Below the diaphragm I do not see any specific abnormality of the included liver and spleen. There is believed to be a cyst in the lateral mid body of the left kidney measuring 2.5 cm, in the medial mid body of the right kidney is an approximately 1.5 cm suspected cyst. There is also some minor infiltrate in the right upper lobe confluent with the major fissure. There are several ill-defined nodular changes which are seen here. One is seen associated with the major fissure on axial image 95 of series 4. This area measured around 7 mm. Slightly more inferior in the right middle lobe on image 99 of series 4 there was another irregular 7 mm density. In the far right lung base near the diaphragm there are multiple patchy infiltrates in the costophrenic angle region. The left lung has some minor infiltrate in the lingula near the diaphragm. Again peribronchial thickening on the left is seen with a slight diffuse interstitial accentuation. I do not see pleural effusion in either lung. RADIOLOGY Heather Edwards DO - 03/03/2023 EXAMINATION: CT PE STUDY, 03/03/2023, 9:54 AM EST. HISTORY: Cough and chest congestion. COMPARISON: Chest x-ray 07/07/2020. TECHNIQUE: CT angiography of the chest was performed with IV contrast. MIP (maximum intensity projection) images or 3D post processing was performed. CT dose reduction technique was used, including Automated Exposure Control. The patient 2 mm axial bolus IV enhanced images of the chest. 75 mL of Omnipaque 350 was given. There are coronal and sagittal reformations. They are viewed in soft tissue and lung and bone windows. FINDINGS: CTA pulmonary arteries: Both pulmonary arteries appear to be well opacified. I do not see any filling defect to suggest any pulmonary embolism at this time. Both pulmonary arteries are however considerably dilated supportive of pulmonary hypertension. There is no pericardial effusion. The esophagus as visualized was satisfactory. There is lio tissue identified in the hilar region and in the infracarinal area, most likely reactive. Review of lung windows suggests a moderate centrilobular emphysematous appearance. There is diffuse peribronchial thickening. In the posterior right lower lobe there is curvilinear airspace consolidation and patchy interstitial change and interstitial accentuation which would be supportive of some developing right lower lobe pneumonia. In the right paravertebral region in the right lower lobe there is patchy airspace consolidation as well. At present this appears more infiltrative than masslike. Below the diaphragm I do not see any specific abnormality of the included liver and spleen. There is believed to be a cyst in the lateral mid body of the left kidney measuring 2.5 cm, in the medial mid body of the right kidney is an approximately 1.5 cm suspected cyst. There is also some minor infiltrate in the right upper lobe confluent with the major fissure. There are several ill-defined nodular changes which are seen here. One is seen associated with the major fissure on axial image 95 of series 4. This area measured around 7 mm. Slightly more inferior in the right middle lobe on image 99 of series 4 there was another irregular 7 mm density. In the far right lung base near the diaphragm there are multiple patchy infiltrates in the costophrenic angle region. The left lung has some minor infiltrate in the lingula near the diaphragm. Again peribronchial thickening on the left is seen with a slight diffuse interstitial accentuation. I do not see pleural effusion in either lung. IMPRESSION IMPRESSION: 1. I do not see any evidence of pulmonary embolism. There is believed to be pulmonary hypertension given prominently dilated right and left main pulmonary arteries. 2. There is believed to be reactive lio hypertrophy in the hilar and infracarinal regions. 3. The lung chen to me suggest centrilobular emphysema. There is diffuse peribronchial thickening and diffuse mild interstitial accentuation. 4. In the right lower lobe posteriorly there is subpleural airspace consolidation in a curvilinear fashion. There is also infiltrative change in the right paravertebral region in the lower lobe. There is some minimal airspace infiltrate associated with the major fissure on the right in the right upper lobe. There are several nodular irregular subcentimeter densities also seen in the right lung, both in the right lower lobe and right middle lobe. In the left lung I see some patchy consolidation and pneumonic type markings in the lingula near the diaphragm. The remaining left lung is fairly well aerated. Overall the findings to me are suggestive of developing pneumonia predominately centered in the right lower lobe with associated significant peribronchial thickening and reactive lio changes. There are some patchy areas of most likely early airspace infiltrate rather than pulmonary nodularity. There is also, especially in the lung bases, diffuse interstitial thickening. 5. Both kidneys appear to have cystic changes incidentally. [facility] Radiology Study observation (narrative) [facility] CT Pulmonary arteries for pu lmonary embolusOrdered By: Heather Edwards on 03-03-2023 [facility] INFLUENZA A AND B, PCRon FLUAV and FLUBV Ag IF Nom (Unsp spec) Negative NEGATIVE [facility] FLUBV Ag IA Ql (Unsp spec) Negative NEGATIVE [facility] Comment on above: TESTING PERFORMED BY ROBERTA [facility] LACTATE, BLOODon 03-03-2023 Lactate [Moles/Vol] 1.4 mmol/L 0.7 - 2. 0 mmol/L [facility] NOVEL CORONAVIRUS LAB 1 - NA SOPHARYNGEALon 03-03-2023 NARRATIVE -1 This test was performed using isothermal ROBERTA and has been approved as Emergency Use Authorization (EUA) for the qualitative detection [id number] nucleic acid. [facility] SARS-CoV-2 (COVID-19) RNA ROBERTA+probe Ql (Unsp spec) Not detected NOT DETECTED [facility] Comment on above: Negative results do not preclude SARS-CoV-2 infection and should not be used as the sole basis for treatment or other patient management decisions. Optimum specimen types and timing for peak viral levels during infections caused by SARS-CoV-2 has not been determined. The possibility of a false negative result should especially be considered if the patient's recent exposures or clinical presentation suggest that SARS-CoV-2 infection is probable, and diagnostic tests for other causes of illness (e.g., other respiratory illness) are negative. Collection of a new specimen and re-testing may be necessary if the patient is critically ill or clinically deteriorating. [facility] RESPIRATORY SYNCYTIAL VIRUS PCRon 03-03-2023 RSV Ag IA Ql (Unsp spec) Negative NEGATIVE [facility] SCREEN: MRSA ONLY, NARES (IS OLATION SCREEN)on 03-03-2023 MRSA isol Org specific cx Ql (Nose) Negative NEGATIVE [facility] STAPHYOCOCCUS AUREUS BY PCR Negative NEGATIVE [facility] Comment on above: TESTING PERFORMED BY PCR [facility] TROPONIN I, HIGH SENSITIVITY on 03-03-2023 Interpretation and review of laboratory results Abnormal [facility] TROPONIN I, HIGH SENSITIVITY 23 pg/mL High 0 - 20 pg/mL [facility] Comment on above: Indeterminant: >12 to 100 pg/mL female >20 to 100 pg/mL male Indicative of myocardial injury. Serial sampling is recommended, a change of greater than or equal to 20 pg/mL is indicative of acute coronary syndrome. [facility] Interpretation and review of laboratory results Abnormal [facility] TROPONIN I, HIGH SENSITIVITY 22 pg/mL High 0 - 20 pg/mL [facility] Comment on above: Indeterminant: >12 to 100 pg/mL female >20 to 100 pg/mL male Indicative of myocardial injury. Serial sampling is recommended, a change of greater than or equal to 20 pg/mL is indicative of acute coronary syndrome. [employer] [facility] [employer] Interpretation and review of laboratory results Abnormal [employer] [facility] [facility] TROPONIN I, HIGH SENSITIVITY 23 pg/mL High 0 - 20 pg/mL [facility] Comment on above: Indeterminant: >12 to 100 pg/mL female >20 to 100 pg/mL male Indicative of myocardial injury. Serial sampling is recommended, a change of greater than or equal to 20 pg/mL is indicative of acute coronary syndrome. [employer] [facility] TROPONIN I, HIGH SENSITIVITY 18 pg/mL 0 - 20 pg/mL [facility] Comment on above: Indeterminant: >12 to 100 pg/mL female >20 to 100 pg/mL male Indicative of myocardial injury. Serial sampling is recommended, a change of greater than or equal to 20 pg/mL is indicative of acute coronary syndrome. [employer] [facility] CT Neck W contrast Sen 01-0 IMPRESSION: Primary: 1. Expected post-treatment changes in the neck without evidence of recurrent disease in the primary site. ? Neck: 1. No cervical lymphadenopathy [email or web address] Transcribe Date/Time: Feb 24 2023 2:16P Dictated by: ANGELA FLORES MD This examination was interpreted and the report reviewed and electronically signed by: ANGELA FLORES MD on Feb 24 2023 2:23PM EST Thank you for allowing us to participate in the care of your patient. DIVISION OF RADIOLOGY * * *Final Report* * * DATE OF EXAM: Feb 24 2023 1:44PM OCC 0013 - CT NECK SOFT TISSUE W IVCON / PROCEDURE REASON: 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) * * * * Physician Interpretation * * * * RESULT: CT NECK SOFT TISSUE W IVCON HISTORY: 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). 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 ? Continued surveillance. TECHNIQUE: CT neck soft tissues following IV administration of [address] Dose-Length Product (DLP): 518 mGy*cm CT Dose Reduction Employed: Automated exposure control(AEC) and iterative recon COMPARISON: PET/CT 08/23/2013 RESULT: Post-treatment changes: Presumed posttreatment/postradi ation changes in the neck including skin thickening, subcutaneous fat stranding, platysmal muscle thickening, and severe atrophy of the bilateral submandibular glands. Nonspecific fat stranding the bilateral parapharyngeal and carotid spaces also likely representing posterior/postradiatio n change. No abnormal enhancing soft tissue in the base of the tongue or elsewhere in the neck to suggest residual/recurrent neoplasm. Lymph nodes: No cervical lymphadenopathy by size, number or morphologic criteria. Small nonspecific lymph nodes are scattered throughout the neck. Aerodigestive tract: The oral cavity is partially obscured by artifact from dental amalgam. The nasal cavities, naso-oropharynx, pharyngeal mucosal space, laryngeal structures and infraglottic trachea are within normal limits. Major salivary glands: The bilateral submandibular glands appears severely atrophic, likely postradiation changes detailed above. Mild atrophy of the bilateral parotid glands, RIGHT worse than LEFT. Thyroid gland: Within normal limits. Carotid space: Patent bilateral extracranial carotid and jugular systems. Calcified and noncalcified atherosclerotic plaque resulting in moderate narrowing of the proximal RIGHT cervical ICA and mild narrowing of the proximal LEFT cervical ICA, although the study is not optimized for carotid artery assessment. Intracranial contents: Imaged portions within normal limits. Mild generalized volume loss with commensurate ventriculomegaly. Scattered hypoattenuation in the supratentorial white matter is nonspecific but likely representing sequela of chronic microvascular ischemic change. Paranasal sinuses, middle ears, mastoids: Polypoid mucosal thickening versus mucous retention cysts in the inferior RIGHT maxillary sinus. The remaining visualized paranasal sinuses are clear. Mastoid air cells and middle ear cavities appear clear. Orbits: Bilateral pseudophakia. Otherwise, orbits appear unremarkable Bones: No suspicious osseous lesions in the imaged calvarium, skull base and spine. Normal cervicothoracic alignment. Multilevel degenerative disc disease with partially calcified posterior longitudinal ligament resulting in up to level mild spinal canal narrowing at C3-C7. Multilevel mild neural foraminal narrowing. Temporomandibular joints are maintained. Lungs: Imaged lungs are clear. Please see concurrent CT chest for complete evaluation of the intrathoracic contents. DIVISION OF RADIOLOGY Provider, [facility] - 02/24/2023 * * *Final Report* * * DATE OF EXAM: Feb 24 2023 1:44PM OCC 0013 - CT NECK SOFT TISSUE W IVCON / PROCEDURE REASON: 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) * * * * Physician Interpretation * * * * RESULT: CT NECK SOFT TISSUE W IVCON HISTORY: 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). 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 ? Continued surveillance. TECHNIQUE: CT neck soft tissues following IV administration of [address] Dose-Length Product (DLP): 518 mGy*cm CT Dose Reduction Employed: Automated exposure control(AEC) and iterative recon COMPARISON: PET/CT 08/23/2013 RESULT: Post-treatment changes: Presumed posttreatment/postradi ation changes in the neck including skin thickening, subcutaneous fat stranding, platysmal muscle thickening, and severe atrophy of the bilateral submandibular glands. Nonspecific fat stranding the bilateral parapharyngeal and carotid spaces also likely representing posterior/postradiatio n change. No abnormal enhancing soft tissue in the base of the tongue or elsewhere in the neck to suggest residual/recurrent neoplasm. Lymph nodes: No cervical lymphadenopathy by size, number or morphologic criteria. Small nonspecific lymph nodes are scattered throughout the neck. Aerodigestive tract: The oral cavity is partially obscured by artifact from dental amalgam. The nasal cavities, naso-oropharynx, pharyngeal mucosal space, laryngeal structures and infraglottic trachea are within normal limits. Major salivary glands: The bilateral submandibular glands appears severely atrophic, likely postradiation changes detailed above. Mild atrophy of the bilateral parotid glands, RIGHT worse than LEFT. Thyroid gland: Within normal limits. Carotid space: Patent bilateral extracranial carotid and jugular systems. Calcified and noncalcified atherosclerotic plaque resulting in moderate narrowing of the proximal RIGHT cervical ICA and mild narrowing of the proximal LEFT cervical ICA, although the study is not optimized for carotid artery assessment. Intracranial contents: Imaged portions within normal limits. Mild generalized volume loss with commensurate ventriculomegaly. Scattered hypoattenuation in the supratentorial white matter is nonspecific but likely representing sequela of chronic microvascular ischemic change. Paranasal sinuses, middle ears, mastoids: Polypoid mucosal thickening versus mucous retention cysts in the inferior RIGHT maxillary sinus. The remaining visualized paranasal sinuses are clear. Mastoid air cells and middle ear cavities appear clear. Orbits: Bilateral pseudophakia. Otherwise, orbits appear unremarkable Bones: No suspicious osseous lesions in the imaged calvarium, skull base and spine. Normal cervicothoracic alignment. Multilevel degenerative disc disease with partially calcified posterior longitudinal ligament resulting in up to level mild spinal canal narrowing at C3-C7. Multilevel mild neural foraminal narrowing. Temporomandibular joints are maintained. Lungs: Imaged lungs are clear. Please see concurrent CT chest for complete evaluation of the intrathoracic contents. IMPRESSION IMPRESSION: Primary: 1. Expected post-treatment changes in the neck without evidence of recurrent disease in the primary site. ? Neck: 1. No cervical lymphadenopathy [email or web address] Transcribe Date/Time: Feb 24 2023 2:16P Dictated by: ANGELA FLORES MD This examination was interpreted and the report reviewed and electronically signed by: ANGELA FLORES MD on Feb 24 2023 2:23PM EST Thank you for allowing us to participate in the care of your patient. [facility] Radiology Study observation (narrative) [facility] CT Neck W contrast IVOrdered By: [facility] Provider on 02-24-2023 [facility] CT Abdomen and Pelvis W cont rast Sen 02-19-2023 Interpretation and review of laboratory results Abnormal [facility] Radiology Result ACTIONABLE Abnormal [facility] Comment on above: This report contains an incidental or actionable finding. This finding may be a new finding separate from the reason your provider ordered the imaging test or it may be an already known finding that needs additional or continued follow-up. Because of this incidental or actionable finding, you may need another test (imaging or a different type of test). Please contact your provider for the next steps. IMPRESSION: 1. No acute finding in the abdomen or pelvis. 2. Indeterminate 9 mm lesions at the upper pole of the left kidney and interpolar region of the right kidney respectively, the differential diagnosis would include benign hemorrhagic cyst, or small solid renal masses. No previous contrast-enhanced CT imaging is available for comparison to assess stability. Thus further evaluation with renal protocol MRI would be recommended. 3. 3.2 cm infrarenal abdominal aortic aneurysm. 4. Additional incidental findings are detailed above including colonic diverticulosis, mild to moderate prostate enlargement and a small fat-containing left inguinal hernia. ACTIONABLE RESULT: FOLLOW-UP Acuity: Actionable Findings: Kidneys/Ureters/Bladde r Routing Code: GU_1 Recommendation: MRI KIDNEY WO/W IVCON Time Frame: At the discretion of the clinical team. COMMUNICATION: Results will be communicated with the ordering provider via [employer] staff message or phone message by Imaging Support Services within 2 business days of report finalization. --END OF FINDING-- Transcribe Date/Time: Feb 19 2023 11:23A Dictated by: CHERYL TELLEZ MD This examination was interpreted and the report reviewed and electronically signed by: CHERYL TELLEZ MD on Feb 19 2023 11:42AM EST Thank you for allowing us to participate in the care of your patient. DIVISION OF RADIOLOGY * * *Final Report* * * DATE OF EXAM: Feb 18 2023 2:05PM OCC 0530 - CT ABD/PEL W IVCON / PROCEDURE REASON: multiple diagnoses * * * * Physician Interpretation * * * * RESULT: EXAMINATION: CT ABDOMEN AND PELVIS WITH IV CONTRAST CLINICAL HISTORY: Lung nodules. Aspiration into airway. History of head and neck cancer. Abnormal weight loss. TECHNIQUE: CT of the abdomen and pelvis was performed using standard technique, scanning from just above the dome of the diaphragm to the symphysis pubis. MQ: CTAP_3 Contrast: IV: 150 ml of Omnipaque 300 Oral: 500 ml of Omni 240 10-25ml diluted with water CT Radiation dose: Integrated Dose-length product (DLP) for this visit = 775 mGy*cm. CT Dose Reduction Employed: Automated exposure control(AEC) and iterative recon COMPARISON: Outside hospital CT of the abdomen dated 08/10/2013. PET/CT dated 08/23/2013. RESULT: Liver: Unremarkable. No mass. Biliary: No bile duct dilation. Unremarkable gallbladder. Spleen: No mass. No splenomegaly. Pancreas: No mass or duct dilation. Adrenals: No mass. Kidneys: Incidental bilateral renal cysts are noted. In addition to the cyst there are several subcentimeter low-attenuation foci in both kidneys which are too small to characterize, these are favored to represent cysts as well. There is a 9 mm intermediate density lesion at the anterior upper pole of the left kidney that is indeterminate, this is seen on series 3 image 41. There is a 9 mm intermediate density lesion at the posterior aspect of the interpolar region of the right kidney on series 3 image 57 that is indeterminate. These could represent hemorrhagic cysts or small solid renal masses. No renal collecting system dilation. GI tract: No dilation or wall thickening. Colonic diverticulosis is noted, there are no CT findings of diverticulitis. Lymph nodes: No abdominal or pelvic lymphadenopathy. Mesentery/Peritoneum: No ascites or mass. Retroperitoneum: No mass. Vasculature: - Abdominal aorta and iliac arteries: 3.2 cm infrarenal abdominal aortic aneurysm present. Moderate calcified atherosclerotic disease noted. - Celiac and SMA: Patent without stenosis. - Portal venous system (SMV, splenic vein, portal vein and branches): Patent. - Hepatic veins: Patent. Pelvis: Mild to moderate prostate enlargement. Small fat-containing left inguinal hernia. No mass, fluid collection or ascites. Bones/Soft Tissues: No destructive skeletal lesion is present. Minimal multilevel lumbar spine degenerative disc disease noted. Lower thorax: Please see the separate report for the concurrently obtained CT of the chest. Client Engagement Specialist (topogram) images: No additional findings. DIVISION OF RADIOLOGY Provider, [facility] - 02/19/2023 * * *Final Report* * * DATE OF EXAM: Feb 18 2023 2:05PM [facility] 0530 - CT ABD/PEL W IVCON / PROCEDURE REASON: multiple diagnoses * * * * Physician Interpretation * * * * RESULT: EXAMINATION: CT ABDOMEN AND PELVIS WITH IV CONTRAST CLINICAL HISTORY: Lung nodules. Aspiration into airway. History of head and neck cancer. Abnormal weight loss. TECHNIQUE: CT of the abdomen and pelvis was performed using standard technique, scanning from just above the dome of the diaphragm to the symphysis pubis. MQ: CTAP_3 Contrast: IV: 150 ml of Omnipaque 300 Oral: 500 ml of Omni 240 10-25ml diluted with water CT Radiation dose: Integrated Dose-length product (DLP) for this visit = 775 mGy*cm. CT Dose Reduction Employed: Automated exposure control(AEC) and iterative recon COMPARISON: Outside hospital CT of the abdomen dated 08/10/2013. PET/CT dated 08/23/2013. RESULT: Liver: Unremarkable. No mass. Biliary: No bile duct dilation. Unremarkable gallbladder. Spleen: No mass. No splenomegaly. Pancreas: No mass or duct dilation. Adrenals: No mass. Kidneys: Incidental bilateral renal cysts are noted. In addition to the cyst there are several subcentimeter low-attenuation foci in both kidneys which are too small to characterize, these are favored to represent cysts as well. There is a 9 mm intermediate density lesion at the anterior upper pole of the left kidney that is indeterminate, this is seen on series 3 image 41. There is a 9 mm intermediate density lesion at the posterior aspect of the interpolar region of the right kidney on series 3 image 57 that is indeterminate. These could represent hemorrhagic cysts or small solid renal masses. No renal collecting system dilation. GI tract: No dilation or wall thickening. Colonic diverticulosis is noted, there are no CT findings of diverticulitis. Lymph nodes: No abdominal or pelvic lymphadenopathy. Mesentery/Peritoneum: No ascites or mass. Retroperitoneum: No mass. Vasculature: - Abdominal aorta and iliac arteries: 3.2 cm infrarenal abdominal aortic aneurysm present. Moderate calcified atherosclerotic disease noted. - Celiac and SMA: Patent without stenosis. - Portal venous system (SMV, splenic vein, portal vein and branches): Patent. - Hepatic veins: Patent. Pelvis: Mild to moderate prostate enlargement. Small fat-containing left inguinal hernia. No mass, fluid collection or ascites. Bones/Soft Tissues: No destructive skeletal lesion is present. Minimal multilevel lumbar spine degenerative disc disease noted. Lower thorax: Please see the separate report for the concurrently obtained CT of the chest. Client Engagement Specialist (topogram) images: No additional findings. IMPRESSION IMPRESSION: 1. No acute finding in the abdomen or pelvis. 2. Indeterminate 9 mm lesions at the upper pole of the left kidney and interpolar region of the right kidney respectively, the differential diagnosis would include benign hemorrhagic cyst, or small solid renal masses. No previous contrast-enhanced CT imaging is available for comparison to assess stability. Thus further evaluation with renal protocol MRI would be recommended. 3. 3.2 cm infrarenal abdominal aortic aneurysm. 4. Additional incidental findings are detailed above including colonic diverticulosis, mild to moderate prostate enlargement and a small fat-containing left inguinal hernia. ACTIONABLE RESULT: FOLLOW-UP Acuity: Actionable Findings: Kidneys/Ureters/Bladde r Routing Code: GU_1 Recommendation: MRI KIDNEY WO/W IVCON Time Frame: At the discretion of the clinical team. COMMUNICATION: Results will be communicated with the ordering provider via [employer] staff message or phone message by Imaging Support Services within 2 business days of report finalization. --END OF FINDING-- Transcribe Date/Time: Feb 19 2023 11:23A Dictated by: CHERYL TELLEZ MD This examination was interpreted and the report reviewed and electronically signed by: CHERYL TELLEZ MD on Feb 19 2023 11:42AM EST Thank you for allowing us to participate in the care of your patient. [facility] CT Chest W contrast Sen IMPRESSION: 1. Extensive branching moqg-dt-xyb-type micronodules are present in the right lower lobe and right middle lobe, and to a lesser extent in the left lower lobe. This is stable to slightly progressed from the CT performed on 02/05/2023, and compatible with an infectious or inflammatory bronchiolitis. 2. The newly noted 8mm right lower lobe nodule seen on 02/05/2023 has slightly decreased in size to 6 mm on today's study, and is thus presumably related to the infectious/inflammator y bronchiolitis. The newly noted cluster of 4 to 5 mm nodules seen in the right lower lobe on 02/05/2023 is unchanged on today's examination and is likely infectious or inflammatory in etiology as well. A follow-up chest CT is recommended following treatment for infection, to confirm resolution. 3. Additional incidental findings are detailed above. Transcribe Date/Time: Feb 19 2023 11:23A Dictated by: CHERYL TELLEZ MD This examination was interpreted and the report reviewed and electronically signed by: CHERYL TELLEZ MD on Feb 19 2023 11:33AM EST Thank you for allowing us to participate in the care of your patient. DIVISION OF RADIOLOGY * * *Final Report* * * DATE OF EXAM: Feb 18 2023 2:05PM OCC 0539 - CT CHEST W IVCON / PROCEDURE REASON: Lung nodules * * * * Physician Interpretation * * * * RESULT: EXAMINATION: CHEST CT WITH CONTRAST CLINICAL HISTORY: Lung nodules. Abnormal lung screening. Technique: Spiral CT acquisition of the chest from the thoracic inlet to the upper abdomen following IV contrast. MQ: CTCW_6 Contrast: 150 mL Omnipaque [address] Radiation dose: Integrated Dose-length product (DLP) for this visit = 775 mGy*cm CT Dose Reduction Employed: Automated exposure control(AEC) and iterative recon Comparison: Multiple previous chest CTs, most recent dated 02/05/2023 RESULT: Limitations: None. Lines, tubes, and devices: None. Lung parenchyma and airways: The newly noted 8 mm solid nodule seen in the right lower lobe on 02/05/2023 has slightly decreased in size to 6 mm, measured on series 4 image 155. This is thus favored to be infectious or inflammatory etiology. The newly noted discrete 4 to 5 mm clustered right lower lobe nodules seen on 02/08/2023 are unchanged, measured on series 4 image 171. In addition to the above there is relatively extensive branching ziro-ub-bgx-type micronodularity involving the inferior aspect of the right lower lobe, the right middle lobe and to a lesser extent the left lower lobe, this is similar to perhaps mildly progressed from 02/05/2023 and indicate an infectious or inflammatory bronchiolitis. Mild upper lung predominant emphysema is present. Adherent mucoid debris is seen within the trachea for example on series 4 image 70 and within right lower lobe bronchi for example on series 4 image 122. Mild bronchial wall thickening is noted involving segmental and subsegmental bronchi in the right lower lobe, likely indicating bronchitis. Pleural space: No pleural effusion. No pleural thickening. Lower neck, lymph nodes, and mediastinum: The imaged thyroid gland is normal. No lymphadenopathy in the supraclavicular, axillary, mediastinal, or hilar regions. Heart, pericardium, and thoracic vessels: The thoracic aorta and main pulmonary artery are normal in caliber. The cardiac chambers are normal in size. No coronary artery atherosclerotic calcifications are noted, although the study is not optimized for coronary assessment. No pericardial effusion or thickening. Bones and soft tissues: Mild to moderate multilevel thoracic spine degenerative disc disease noted. No destructive skeletal lesion is present. Upper abdomen: Please see the separate report for the concurrently obtained CT of the abdomen/pelvis. Client Engagement Specialist (topogram) images: No additional findings. DIVISION OF RADIOLOGY Provider, [facility] - 02/19/2023 * * *Final Report* * * DATE OF EXAM: Feb 18 2023 2:05PM OCC 0539 - CT CHEST W IVCON / PROCEDURE REASON: Lung nodules * * * * Physician Interpretation * * * * RESULT: EXAMINATION: CHEST CT WITH CONTRAST CLINICAL HISTORY: Lung nodules. Abnormal lung screening. Technique: Spiral CT acquisition of the chest from the thoracic inlet to the upper abdomen following IV contrast. MQ: CTCW_6 Contrast: 150 mL Omnipaque [address] Radiation dose: Integrated Dose-length product (DLP) for this visit = 775 mGy*cm CT Dose Reduction Employed: Automated exposure control(AEC) and iterative recon Comparison: Multiple previous chest CTs, most recent dated 02/05/2023 RESULT: Limitations: None. Lines, tubes, and devices: None. Lung parenchyma and airways: The newly noted 8 mm solid nodule seen in the right lower lobe on 02/05/2023 has slightly decreased in size to 6 mm, measured on series 4 image 155. This is thus favored to be infectious or inflammatory etiology. The newly noted discrete 4 to 5 mm clustered right lower lobe nodules seen on 02/08/2023 are unchanged, measured on series 4 image 171. In addition to the above there is relatively extensive branching qqdg-wj-cid-type micronodularity involving the inferior aspect of the right lower lobe, the right middle lobe and to a lesser extent the left lower lobe, this is similar to perhaps mildly progressed from 02/05/2023 and indicate an infectious or inflammatory bronchiolitis. Mild upper lung predominant emphysema is present. Adherent mucoid debris is seen within the trachea for example on series 4 image 70 and within right lower lobe bronchi for example on series 4 image 122. Mild bronchial wall thickening is noted involving segmental and subsegmental bronchi in the right lower lobe, likely indicating bronchitis. Pleural space: No pleural effusion. No pleural thickening. Lower neck, lymph nodes, and mediastinum: The imaged thyroid gland is normal. No lymphadenopathy in the supraclavicular, axillary, mediastinal, or hilar regions. Heart, pericardium, and thoracic vessels: The thoracic aorta and main pulmonary artery are normal in caliber. The cardiac chambers are normal in size. No coronary artery atherosclerotic calcifications are noted, although the study is not optimized for coronary assessment. No pericardial effusion or thickening. Bones and soft tissues: Mild to moderate multilevel thoracic spine degenerative disc disease noted. No destructive skeletal lesion is present. Upper abdomen: Please see the separate report for the concurrently obtained CT of the abdomen/pelvis. Client Engagement Specialist (topogram) images: No additional findings. IMPRESSION IMPRESSION: 1. Extensive branching ykvo-ya-wpe-type micronodules are present in the right lower lobe and right middle lobe, and to a lesser extent in the left lower lobe. This is stable to slightly progressed from the CT performed on 02/05/2023, and compatible with an infectious or inflammatory bronchiolitis. 2. The newly noted 8mm right lower lobe nodule seen on 02/05/2023 has slightly decreased in size to 6 mm on today's study, and is thus presumably related to the infectious/inflammator y bronchiolitis. The newly noted cluster of 4 to 5 mm nodules seen in the right lower lobe on 02/05/2023 is unchanged on today's examination and is likely infectious or inflammatory in etiology as well. A follow-up chest CT is recommended following treatment for infection, to confirm resolution. 3. Additional incidental findings are detailed above. Transcribe Date/Time: Feb 19 2023 11:23A Dictated by: CHERYL TELLEZ MD This examination was interpreted and the report reviewed and electronically signed by: CHERYL TELLEZ MD on Feb 19 2023 11:33AM EST Thank you for allowing us to participate in the care of your patient. [facility] CT Chest W contrast IVOrdere d By: [facility] Provider on 02-19-2023 [facility] No Panel Informationon 02-18 Radiology Study observation (narrative) [facility] CT Lung parenchyma WO amandaa stourmila 02-08-2023 IMPRESSION: LungRADS category: 4B LungRADS modifier: None LungRADS 0 reason: n/a Recommendations: Chest CT with or without contrast, PET/CT and/or tissue sampling depending on the probability of malignancy and comorbidities. PET/CT may be used when there is a >= 8 mm solid component. ========= Reference: [employer]. Lung CT Screening Reporting and Data System (Lung-RADS). Available at: [email or web address] LungRADS Transcribe Date/Time: Feb 08 2023 9:49P Dictated by: JUAN ORDOÑEZ MD This examination was interpreted and the report reviewed and electronically signed by: JUAN ORDOÑEZ MD on Feb 08 2023 9:56PM EST Thank you for allowing us to participate in the care of your patient. DIVISION OF RADIOLOGY * * *Final Report* * * DATE OF EXAM: Feb 05 2023 2:00PM OCC 0561 - CT LUNG FOLLOWUP WO IVCON / PROCEDURE REASON: Multiple lung nodules on CT * * * * Physician Interpretation * * * * RESULT: EXAMINATION: CT LUNG FOLLOWUP WO IVCON CLINICAL HISTORY: Lung nodules Technique: Spiral CT acquisition of the chest from the thoracic inlet to the upper abdomen without contrast. MQ: CTLCS_6 Followup LDCT Patient characteristics: * Wewp-xq-Bnzbp: 1950; Age at exam: 72 years * Gender: Male * Lung Disease: Asymptomatic (no signs or symptoms of lung disease) * Number of Pack Years: 84 * Current smoker (=0) or Number of Years since Quit: 14 * Ordering provider and NPI: LINDA JEAN BAPTISTE [id number] * Interpreting radiologist and NPI: Diann [id number] Exam acquisition parameters: * Exam Date: 02/05/2023 2:00 PM * Site: [facility] * * CT System Cloth Beamer: Siemens * CT System Model: [employer] MCT * Tube Current-Time (mA-sec): 40 * Peak Voltage (kV): 120V * Scan Time (sec): 14.84 * Scan Volume (z-length, cm): 30.15 * Pitch: 0.9 * Slice Thickness (mm): 1.5 * CT Dose-Length Product: 101.55 mGy*cm * CT Dose Index: 3.21mGy * CT Dose Reduction Method: Iterative recon COMPARISON: Prior lung screen dated 11/27/2022 RESULT: Are nodules present? Yes, 6 or more nodules Lung nodule comments: 8mm right lower lobe nodule (224) new from prior. Discrete 4 to 5 mm clustered right lower lobe nodules (249) new from prior. Numerous other small nodules. Other findings: Degenerative changes of the thoracic spine. Dependent endotracheal opacities probably retained mucus secretions with otherwise patent central airways, bronchial thickening, moderate upper lobe predominant emphysema, scattered linear opacities likely atelectasis. Mid to lower lobe predominant tiny ill-defined nodular opacities stable to slightly increased from prior probably inflammatory and may be related to infectious bronchiolitis or aspiration. Right medial subpleural opacity probably atelectasis or inflammation. DIVISION OF RADIOLOGY Provider, [facility] - 02/08/2023 * * *Final Report* * * DATE OF EXAM: Feb 05 2023 2:00PM OCC 0561 - CT LUNG FOLLOWUP WO IVCON / PROCEDURE REASON: Multiple lung nodules on CT * * * * Physician Interpretation * * * * RESULT: EXAMINATION: CT LUNG FOLLOWUP WO IVCON CLINICAL HISTORY: Lung nodules Technique: Spiral CT acquisition of the chest from the thoracic inlet to the upper abdomen without contrast. MQ: CTLCS_6 Followup LDCT Patient characteristics: * Uhmp-at-Siebt: 1950; Age at exam: 72 years * Gender: Male * Lung Disease: Asymptomatic (no signs or symptoms of lung disease) * Number of Pack Years: 84 * Current smoker (=0) or Number of Years since Quit: 14 * Ordering provider and NPI: LINDA JEAN BAPTISTE [id number] * Interpreting radiologist and NPI: Diann [id number] Exam acquisition parameters: * Exam Date: 02/05/2023 2:00 PM * Site: [facility] * * CT System Cloth Beamer: Siemens * CT System Model: Biograph MCT * Tube Current-Time (mA-sec): 40 * Peak Voltage (kV): 120V * Scan Time (sec): 14.84 * Scan Volume (z-length, cm): 30.15 * Pitch: 0.9 * Slice Thickness (mm): 1.5 * CT Dose-Length Product: 101.55 mGy*cm * CT Dose Index: 3.21mGy * CT Dose Reduction Method: Iterative recon COMPARISON: Prior lung screen dated 11/27/2022 RESULT: Are nodules present? Yes, 6 or more nodules Lung nodule comments: 8mm right lower lobe nodule (224) new from prior. Discrete 4 to 5 mm clustered right lower lobe nodules (249) new from prior. Numerous other small nodules. Other findings: Degenerative changes of the thoracic spine. Dependent endotracheal opacities probably retained mucus secretions with otherwise patent central airways, bronchial thickening, moderate upper lobe predominant emphysema, scattered linear opacities likely atelectasis. Mid to lower lobe predominant tiny ill-defined nodular opacities stable to slightly increased from prior probably inflammatory and may be related to infectious bronchiolitis or aspiration. Right medial subpleural opacity probably atelectasis or inflammation. IMPRESSION IMPRESSION: LungRADS category: 4B LungRADS modifier: None LungRADS 0 reason: n/a Recommendations: Chest CT with or without contrast, PET/CT and/or tissue sampling depending on the probability of malignancy and comorbidities. PET/CT may be used when there is a >= 8 mm solid component. ========= Reference: [employer]. Lung CT Screening Reporting and Data System (Lung-RADS). Available at: [email or web address] LungRADS Transcribe Date/Time: Feb 08 2023 9:49P Dictated by: JUAN ORDOÑEZ MD This examination was interpreted and the report reviewed and electronically signed by: JUAN ORDOÑEZ MD on Feb 08 2023 9:56PM EST Thank you for allowing us to participate in the care of your patient. [facility] CT Lung parenchyma WO william stOrdered By: Ccf Provider on 02-08-2023 [facility] CT Lung parenchyma WO william soares 02-05-2023 Radiology Study observation (narrative) [facility] CT Chest for screening WO co ntraston 11-29-2022 IMPRESSION: LungRADS category: 0 Category 0 secondary to findings most suggestive of indeterminate infectious or inflammatory process. A follow-up LDCT in 1-3 months is suggested to assess stability or resolution of these findings. LungRADS modifier: None LungRADS 0 reason: n/a Recommendations: Follow-up LDCT in 1-3 months. Other actionable findings: None ========= Reference: [employer]. Lung CT Screening Reporting and Data System (Lung-RADS). Available at: [email or web address] LungRADS Transcribe Date/Time: Nov 29 2022 10:36A Dictated by: RIGOBERTO STARKS MD This examination was interpreted and the report reviewed and electronically signed by: RIGOBERTO STARKS MD on Nov 29 2022 11:04AM EST Thank you for allowing us to participate in the care of your patient. DIVISION OF RADIOLOGY * * *Final Report* * * DATE OF EXAM: Nov 27 2022 1:52PM [facility] 0562 - CT LUNG SCREEN WO IVCON / PROCEDURE REASON: Former smoker * * * * Physician Interpretation * * * * RESULT: EXAMINATION: CHEST CT WITHOUT CONTRAST (LOW-DOSE CT LUNG CANCER SCREENING PROTOCOL) CLINICAL HISTORY: Lung cancer LDCT screening ? absence of signs or symptoms of lung cancer. Technique: Spiral CT acquisition of the chest from the thoracic inlet to the upper abdomen without contrast. MQ: CTLCS_6 Patient characteristics: * Hxqz-no-Dyvky: 1950; Age at exam: 72 years * Gender: Male * Lung Disease: Asymptomatic (no signs or symptoms of lung disease) * Number of Pack Years: 84 * Current smoker (=0) or Number of Years since Quit: 14 * Ordering provider and NPI: LINDA JEAN BAPTISTE [id number] * Interpreting radiologist and NPI: Mack [id number] Exam acquisition parameters: * Exam Date: 11/27/2022 1:52 PM * Site: [facility] * * CT System Cloth Beamer: [email or web address] * CT System Model: Biograph MCT * Tube Current-Time (mA-sec): 40 * Peak Voltage (kV): 120V * Scan Time (sec): 16.07 * Scan Volume (z-length, cm): 32.80 * Pitch: 0.9 * Slice Thickness (mm): 1.5 * CT Dose-Length Product: 110.08 mGy*cm * CT Dose Index: 3.21mGy * CT Dose Reduction Method: Iterative recon COMPARISON: Multiple prior CT lung screen exams including the most recent CT lung follow-up dated 11/12/2021 RESULT: Are nodules present? No Other lung nodule comments: There has been interval resolution of multiple tiny (<4 mm) indeterminate nodules identified in the left lower lobe on the prior exam. There has been development of multiple clustered tiny nodules in a centrilobular or tree-in-bud configuration in both mid to lower lungs, particularly the right middle lobe (3:211), the right lower lobe (3:238) and to a lesser extent, the left lower lobe (3:251). Other findings: Retained or aspirated secretions layer dependently in the trachea. Aspirated secretions are also noted in the lumen of the distal bronchus intermedius extending into the right lower lobe bronchus. Since the prior exam, there has been development of multiple clusters of centrilobular or tree-in-bud nodules in both mid to lower lungs, right worse than left, most commonly secondary to inflammatory/infectiou s bronchiolitis, possibly aspiration induced. There has also been development of a focal airspace/consolidative opacity in the medial right lower lobe (3:240), also likely secondary to pneumonia which may be aspiration induced. There are scattered thick-walled bronchi in both mid to lower lungs, consistent with chronic airways inflammation. Multiple calcified granulomata are noted in both lungs. No pleural effusion or pneumothorax is identified. The thyroid gland appears relatively atrophic, but otherwise unremarkable. No supraclavicular lymphadenopathy is identified. No region of intrathoracic lymphadenopathy has developed, including the axillae. Subcentimeter lymph nodes remain scattered in the mediastinum including the bilateral paratracheal and subcarinal regions. The esophagus is patulous. The thoracic aorta appears normal in course and caliber. The main and central pulmonary arteries appear mildly dilated, a finding which may be associated with pulmonary hypertension. The main pulmonary artery measures 33 mm in transverse diameter. There are mild atherosclerotic calcifications of the thoracic aorta. No pericardial effusion is identified. Visualized portions of the upper abdomen disclose no acute process. The vertebral body heights appear symmetric and well-maintained. There are degenerative changes of the thoracic spine. No lytic or destructive osseous lesion is identified. The soft tissues of the chest wall appear unremarkable. Emphysema: Mild (5-25%), Centrilobular, uppeR lobe Coronary Artery Calcifications: Circumflex None; Left Anterior Descending None; Right Coronary None Client Engagement Specialist (topogram) images: No additional findings. DIVISION OF RADIOLOGY [facility] * * *Final Report* * * DATE OF EXAM: Nov 27 2022 1:52PM [facility] 0562 - CT LUNG SCREEN WO IVCON / PROCEDURE REASON: Former smoker * * * * Physician Interpretation * * * * RESULT: EXAMINATION: CHEST CT WITHOUT CONTRAST (LOW-DOSE CT LUNG CANCER SCREENING PROTOCOL) CLINICAL HISTORY: Lung cancer LDCT screening ? absence of signs or symptoms of lung cancer. Technique: Spiral CT acquisition of the chest from the thoracic inlet to the upper abdomen without contrast. MQ: [id number]_6 Patient characteristics: * Gkkx-pc-Cclgs: 1950; Age at exam: 72 years * Gender: Male * Lung Disease: Asymptomatic (no signs or symptoms of lung disease) * Number of Pack Years: 84 * Current smoker (=0) or Number of Years since Quit: 14 * Ordering provider and NPI: LINDA JEAN BAPTISTE [id number] * Interpreting radiologist and NPI: Mack [id number] Exam acquisition parameters: * Exam Date: 11/27/2022 1:52 PM * Site: [facility] * * CT System Cloth Beamer: Siemens * CT System Model: Viron Therapeuticsgraph MCT * Tube Current-Time (mA-sec): 40 * Peak Voltage (kV): 120V * Scan Time (sec): 16.07 * Scan Volume (z-length, cm): 32.80 * Pitch: 0.9 * Slice Thickness (mm): 1.5 * CT Dose-Length Product: 110.08 mGy*cm * CT Dose Index: 3.21mGy * CT Dose Reduction Method: Iterative recon COMPARISON: Multiple prior CT lung screen exams including the most recent CT lung follow-up dated 11/12/2021 RESULT: Are nodules present? No Other lung nodule comments: There has been interval resolution of multiple tiny (<4 mm) indeterminate nodules identified in the left lower lobe on the prior exam. There has been development of multiple clustered tiny nodules in a centrilobular or tree-in-bud configuration in both mid to lower lungs, particularly the right middle lobe (3:211), the right lower lobe (3:238) and to a lesser extent, the left lower lobe (3:251). Other findings: Retained or aspirated secretions layer dependently in the trachea. Aspirated secretions are also noted in the lumen of the distal bronchus intermedius extending into the right lower lobe bronchus. Since the prior exam, there has been development of multiple clusters of centrilobular or tree-in-bud nodules in both mid to lower lungs, right worse than left, most commonly secondary to inflammatory/infectiou s bronchiolitis, possibly aspiration induced. There has also been development of a focal airspace/consolidative opacity in the medial right lower lobe (3:240), also likely secondary to pneumonia which may be aspiration induced. There are scattered thick-walled bronchi in both mid to lower lungs, consistent with chronic airways inflammation. Multiple calcified granulomata are noted in both lungs. No pleural effusion or pneumothorax is identified. The thyroid gland appears relatively atrophic, but otherwise unremarkable. No supraclavicular lymphadenopathy is identified. No region of intrathoracic lymphadenopathy has developed, including the axillae. Subcentimeter lymph nodes remain scattered in the mediastinum including the bilateral paratracheal and subcarinal regions. The esophagus is patulous. The thoracic aorta appears normal in course and caliber. The main and central pulmonary arteries appear mildly dilated, a finding which may be associated with pulmonary hypertension. The main pulmonary artery measures 33 mm in transverse diameter. There are mild atherosclerotic calcifications of the thoracic aorta. No pericardial effusion is identified. Visualized portions of the upper abdomen disclose no acute process. The vertebral body heights appear symmetric and well-maintained. There are degenerative changes of the thoracic spine. No lytic or destructive osseous lesion is identified. The soft tissues of the chest wall appear unremarkable. Emphysema: Mild (5-25%), Centrilobular, uppeR lobe Coronary Artery Calcifications: Circumflex None; Left Anterior Descending None; Right Coronary None Client Engagement Specialist (topogram) images: No additional findings. IMPRESSION IMPRESSION: LungRADS category: 0 Category 0 secondary to findings most suggestive of indeterminate infectious or inflammatory process. A follow-up LDCT in 1-3 months is suggested to assess stability or resolution of these findings. LungRADS modifier: None LungRADS 0 reason: n/a Recommendations: Follow-up LDCT in 1-3 months. Other actionable findings: None ========= Reference: [employer]. Lung CT Screening Reporting and Data System (Lung-RADS). Available at: http://[email or web address].org/Zurdo [email or web address]/Resources/ LungRADS Transcribe Date/Time: Nov 29 2022 10:36A Dictated by: RIGOBERTO STARKS MD This examinati (more content not included)... [facility] CT Chest for screening WO co ntrastOrdered By: Ccf Provider on 11-29-2022 [facility] [address] Chest for screening WO co ntraston 11-27-2022 Radiology Study observation (narrative) [facility] CBC panel Auto (Bld)on 11-22 Erythrocyte distribution width (RBC) [Ratio] 13.7 % 11.5 - 15.0 % [facility] Hematocrit (Bld) [Volume fraction] 52.2 % High 39.0 - 51.0 % [facility] Hemoglobin (Bld) [Mass/Vol] 16.7 g/dL 13.0 - 17.0 g/dL [facility] MCH (RBC) [Entitic mass] 27.7 pg 26.0 - 34.0 pg [facility] MCHC (RBC) [Mass/Vol] 32.0 g/dL 30.5 - 36.0 g/dL [facility] MCV (RBC) [Entitic vol] 86.7 fL 80.0 - 100.0 fL [facility] Nucleated RBC (Bld) [#/Vol] <0.01 k/uL [facility] Platelet mean volume (Bld) [Entitic vol] 10.4 fL 9.0 - 12.7 fL [facility] Platelets (Bld) [#/Vol] 269 10*3/uL 150 - 400 k/uL [facility] RBC (Bld) [#/Vol] 6.02 10*6/uL High 4.20 - 6.0 0 m/uL [facility] WBC (Bld) [#/Vol] 7.07 10*3/uL 3.70 - 11. 00 k/uL [facility] Comprehensive metabolic 2000 panelon 11-22-2021 Albumin [Mass/Vol] 4.2 g/dL 3.9 - 4.9 g/dL [facility] ALP [Catalytic activity/Vol] 121 U/L High 38 - 113 U/L [facility] ALT [Catalytic activity/Vol] 23 U/L 10 - 54 U/L [facility] Anion gap [Moles/Vol] 6 mmol/L Low 9 - 18 mmol/L [facility] AST [Catalytic activity/Vol] 34 U/L 14 - 40 U/L [facility] Bilirubin [Mass/Vol] 0.9 mg/dL 0.2 - 1 .3 mg/dL [facility] Calcium [Mass/Vol] 9.7 mg/dL 8.5 - 10. 2 mg/dL [facility] Chloride [Moles/Vol] 100 mmol/L 97 - 10 5 mmol/L [facility] CO2 [Moles/Vol] 34 mmol/L High 22 - 30 mmol/L [facility] Creatinine [Mass/Vol] 1.02 mg/dL 0.73 - 1.22 mg/dL [facility] Estimated Glomerular Filtration Rate 79 mL/min/1.73m >=60 mL/min/1.73m [facility] Glucose [Mass/Vol] 103 mg/dL High 74 - 99 mg/dL [facility] Potassium [Moles/Vol] 5.3 mmol/L High 3.7 - 5.1 mmol/L [facility] Protein [Mass/Vol] 7.4 g/dL 6.3 - 8.0 g/dL [facility] Sodium [Moles/Vol] 140 mmol/L 136 - 144 mmol/L [facility] Urea nitrogen [Mass/Vol] 19 mg/dL 9 - 24 mg/dL [facility] Established Visit (Gastroent erology)on 06-06-2021 Established Visit (Gastroenterology) Diagnoses/Problems Assessed History of diverticulitis (V12.70) (Z87.19) Chronic colitis (558.9) (K52.9) Orders SocHx: Non-smoker Tobacco Use Screening; Status:Complete; Done: [id number] Perform:Not Applicable;Ordered; For:SocHx: Non-smoker; Ordered By:Marina Hernandes; Provider Impressions I advised Kishor based on the CT findings, colonoscopy and pathology findings it is most likely chronic diverticular inflammation. I advised him that this does not need any specific medical treatment other than high-fiber diet advised to begin 1 tablespoon of Metamucil nightly. We will follow-up as needed. Certainly if she has any changes bowel movements with diarrhea or rectal bleeding she will follow-up at that moment. Chief Complaint FUV in office today from colonoscopy, no complaints today. Denies abdominal pain ,bloating, nausea, vomiting, constipation, diarrhea, blood in stools or black stools. Adult Risk Screening Initial Fall Risk Screening: AMY has not fallen in the last 6 months. AMY does not have a fear of falling. He does not need assistance with sitting, standing or walking. Does not need assistance walking in his home. He does not need assistance in an unfamiliar setting. The patient is not using an assistive device. Living Will. Living Will: Living will on file. Healthcare POA: Health care proxy on file. Tobacco Screening: Has not used tobacco in the past 6 months. History of Present Illness Kishor is seen today in follow-up. Was hospitalized acute diarrheal illness with rectal bleeding stool cultures were obtained while hospitalized but CT scan did show pancolitis was felt to have infectious colitis he responded to oral antibiotics. He had follow-up colonoscopy 1 week ago which revealed inflammatory change throughout the left colon with surrounding diverticular disease. Biopsies showed neutrophilic inflammation without cryptitis or crypt abscess. Is felt to be chronic diverticulitis or drug reaction. He admits that he is having 1-2 formed stools daily no rectal bleeding no abdominal pain and no bloating. Review of Systems Constitutional: no fever, no chills, not feeling tired and no recent weight loss. ENT: no lymphadenopathy. Cardiovascular: no shortness of breath and no chest pain. Respiratory: no cough. Gastrointestinal: as noted in HPI. Musculoskeletal: no joint swelling. Integumentary: no rashes, no skin lesions and was no jaundiced. All other systems have been reviewed and are negative for complaint. Active Problems Problems Rectal bleeding (569.3) (K62.5) Surgical History Problems History of Inguinal hernia repair History of Vasectomy Family History Mother No pertinent family history Father No pertinent family history Social History Problems No alcohol use No illicit drug use Non-smoker (V49.89) (Z78.9) Occasional caffeine consumption Patient has living will (V49.89) (Z78.9) Allergies Medication No Known Drug Allergies Recorded By: Marina Hernandes; 06/06/2021 10:24:34 AM Current Meds Medication NameInstruction Blink Tears SOLN Crestor 5 MG Oral Tablet (Rosuvastatin Calcium) Diovan 320 MG Oral Tablet (Valsartan) Dutasteride 0.5 MG Oral Capsule Famotidine 40 MG Oral Tablet NexIUM 40 MG Oral Capsule Delayed Release (Esomeprazole Magnesium) Omeprazole 20 MG Oral Capsule Delayed Release traMADol HCl - 50 MG Oral Tablet Tribenzor 40-5-25 MG Oral Tablet (Olmesartan-Amlodipine -HCTZ) Vogelxo 50 MG/5GM (1%) Transdermal Gel (Testosterone) Vitals Vital Signs Recorded: 06Jun2021 10:22AM [id number] Uixvlkfuf48 Height6 ft 1 in Qcqodh592 lb BMI Krblreezuk38.18 kg/m2 BSA Calculated2.18 Physical Exam Constitutional General appearance: In no acute distress . Eyes Anicteric Sclerae . Pulmonary Auscultation of lungs: Clear. Cardiovascular Auscultation of heart: RRR without murmur. Examination of extremities for edema: Normal. Abdomen Soft, non-tender. Bowel sounds normal. No hepatomegaly or splenomegaly. Signatures Electronically signed by : Vasu Jaimes DO; Jun 06 2021 1:51PM EST (Author) [facility] Colonoscopyon 05-18-2021 Colonoscopy PATIENTNAME Patient Name: Amy Sun EXAMDATE Procedure Date: 05/18/2021 1:06 PM PATIENTID PATIENTACCOUNTNUM PATIENTDOB Date of : 1950 ADMITTYPE Admit Type: Outpatient PATIENTROOM Site: [facility] Proc RM 1 ETHNICITY Ethnicity: Not or RACE Race: White PROVDR Attending MD: Vasu Jaimes DO ENDOPROCEDURENAME Procedure: Colonoscopy INDICATION Indications: Hematochezia, Abnormal CT of the GI tract PRIMARYPROVIDER Providers: Vasu Jaimes DO (Doctor), Nat Frederick RN (Nurse), Kaila Laguerre RN (Nurse) EDREFPROVIDER Referring: Richy Emerson MD CURRENT_MEDS Medicines: Midazolam 2.5 mg IV, Meperidine 50 mg IV, Glucagon 1 mg IV COMPLIC Complications: No immediate complications. ENDOPROCEDURETEXT Procedure: Pre-Anesthesia Assessment: - Prior to the procedure, a History and Physical was performed, and patient medications and allergies were reviewed. The patient is competent. The risks and benefits of the procedure and the sedation options and risks were discussed with the patient. All questions were answered and informed consent was obtained. Patient identification and proposed procedure were verified by the physician in the pre-procedure area. Mental Status Examination: alert and oriented. Airway Examination: normal oropharyngeal airway and neck mobility. Respiratory Examination: clear to auscultation. CV Examination: normal. Prophylactic Antibiotics: The patient does not require prophylactic antibiotics. Prior Anticoagulants: The patient has taken no anticoagulant or antiplatelet agents. ASA Grade Assessment: II - A patient with mild systemic disease. After reviewing the risks and benefits, the patient was deemed in satisfactory condition to undergo the procedure. The anesthesia plan was to use moderate sedation / analgesia (conscious sedation). Immediately prior to administration of medications, the patient was re-assessed for adequacy to receive sedatives. The heart rate, respiratory rate, oxygen saturations, blood pressure, adequacy of pulmonary ventilation, and response to care were monitored throughout the procedure. The physical status of the patient was re-assessed after the procedure. After I obtained informed consent, the scope was passed under direct vision. Throughout the procedure, the patient's blood pressure, pulse, and oxygen saturations were monitored continuously. The adult colonoscope was introduced through the anus and advanced to the terminal ileum, with identification of the appendiceal orifice and IC valve. The colonoscopy was performed without difficulty. The patient tolerated the procedure well. The quality of the bowel preparation was excellent. The terminal ileum, ileocecal valve, appendiceal orifice, and rectum were photographed. FINDING Findings: The perianal and digital rectal examinations were normal. Pertinent negatives include normal sphincter tone and no palpable rectal lesions. The terminal ileum appeared normal. Biopsies were taken with a cold forceps for histology. Two sessile polyps were found in the ascending colon. The polyps were 3 to 6 mm in size. These polyps were removed with a hot snare. Resection and retrieval were complete. A segmental area of moderately erythematous, inflamed, ulcerated and luiaqiyq-ssumysd-gnpjn ased mucosa was found in the recto-sigmoid colon, in the descending colon, in the transverse colon and in the ascending colon. Biopsies were taken with a cold forceps for histology. SEDATION Moderate Sedation: Moderate (conscious) sedation was administered by the endoscopy nurse and supervised by the endoscopist. The following parameters were monitored: oxygen saturation, heart rate, blood pressure, and response to care. Total physician intraservice time was 25 minutes. EBL Estimated Blood Loss: Estimated blood loss: none. IMPRESS Impression: - The examined portion of the ileum was normal. Biopsied. - Two 3 to 6 mm polyps in the ascending colon, removed with a hot snare. Resected and retrieved. - Erythematous, inflamed, ulcerated and cztynfrv-vtqdzqd-utyzd ased mucosa in the recto-sigmoid colon, in the descending colon, in the transverse colon and in the ascending colon. Biopsied. ENDORECOMMENDATION Recommendation: - Patient has a contact number available for emergencies. The signs and symptoms of potential delayed complications were discussed with the patient. Return to normal activities tomorrow. Written discharge instructions were provided to the patient. - Patient has a contact number available for emergencies. The signs and symptoms of potential delayed complications were discussed with the patient. Return to normal activities tomorrow. Written discharge instructions were provided to the patient. - Resume previous diet. - Continue present medicatio (more content not included)... Normal [facility] No Panel Informationon 05-18 [facility] 120 Work Phone: [email or web address] [facility] 120 Work Phone: [facility] Surgical Pathology Depar tmenton 05-18-2021 [facility] Surgical Pathology Department Name AMY SUNSumeet Pathologist: CALEB LOVING MD Date of Procedure: 05/18/2021 Date Received: 05/21/2021 Date Reported 05/23/2021 Submitting Physician: VASU JAIMES DO Location: [facility] Copy To/Referring/Attending : RICHY EMERSON MD Other External # FINAL DIAGNOSIS A. ASCENDING COLON POLYP, POLYPECTOMY: --FRAGMENTS OF TUBULAR ADENOMA. B. ILEUM, BIOPSY: --SMALL INTESTINE MUCOSA, NO SIGNIFICANT PATHOLOGIC ABNORMALITY. C. RIGHT COLON, BIOPSY: --COLONIC MUCOSA, NO SIGNIFICANT PATHOLOGIC ABNORMALITY. D. LEFT COLON, BIOPSY: --COLONIC MUCOSA WITH FOCAL ACTIVE INFLAMMATION. Note: There is neutrophil infiltration with cryptitis involving several crypts in two of at least eight mucosal fragments represented. No features of chronic involvement are identified. The differential diagnosis includes infection, diverticular associated inflammation, drug effect, and autoimmune/idiopathic causes of colitis. E. TRANSVERSE COLON, BIOPSY: --COLONIC MUCOSA, NO SIGNIFICANT PATHOLOGIC ABNORMALITY. Interpretation was performed at: [facility] Department of Pathology [address] [place] [address] Electronically Signed Out By CALEB LOVING MD/JERSEY By the signature on this report, the individual or group listed as making the Final Interpretation/Diagnos is certifies that they have reviewed this case. Clinical History: Physician Contact Number: [phone] Fixative (A): Formalin Fixative (B): Formalin Fixative (C): Formalin Fixative (D): Formalin Fixative (E): Formalin Clinical Diagnosis History RECTAL BLEEDING Specimens Submitted As: A: ASCENDING COLON POLYP B: ILEUM BX C: RIGHT COLON BX D: LEFT COLON BX E: TRANSVERSE COLON BX Gross Description: A: Received in formalin, labeled with the patient's name and hospital number and ascending colon polyp, are multiple fragments of whitfield, soft tissue aggregating to 0.9 x 0.5 x 0.2 cm. The specimen is submitted in toto in one cassette. RCC B: Received in formalin, labeled with the patient's name and hospital number and terminal ileum, are two fragments of whitfield, soft tissue aggregating to 0.5 x 0.5 x 0.2 cm. The specimen is submitted in toto in one cassette. RCC C: Received in formalin, labeled with the patient's name and hospital number and right colon biopsy, are multiple fragments of whitfield, soft tissue aggregating to 0.8 x 0.6 x 0.3 cm. The specimen is submitted in toto in one cassette. RCC D: Received in formalin, labeled with the patient's name and hospital number and left colon biopsy, are multiple fragments of whitfield, soft tissue aggregating to 1.0 x 0.8 x 0.2 cm. The specimen is submitted in toto in one cassette. RCC E: Received in formalin, labeled with the patient's name and hospital number and transverse colon biopsy, are two fragments of whitfield, soft tissue aggregating to 0.7 x 0.4 x 0.2 cm. The specimen is submitted in toto in one cassette. RCC rcc/05/22/2021 [facility] Department of Pathology [address] [place] [address] Normal [facility] Comment on above: Performed By: #### U HCS #### [facility] Surgical Pathology Department [id number] [facility] [address] CT LUNG FOLLOWUP WO IVCONon 05-14-2021 [facility] CBCon 04-11-2021 Erythrocyte distribution width (RBC) [Ratio] 16.5 % High 11.5 - 14.5 [facility] Comment on above: Performed By: #### C BC #### [address] [address] Hematocrit (Bld) [Volume fraction] 51.8 % Normal 41.0 - 52.0 [facility] Comment on above: Performed By: #### C BC #### [address] [address] Hemoglobin (Bld) [Mass/Vol] 17.0 g/dL Normal 13.5 - 17.5 [facility] Comment on above: Performed By: #### C BC #### [address] [address] MCHC (RBC) [Mass/Vol] 32.9 g/dL Normal 32.0 - 36.0 [facility] Comment on above: Performed By: #### C BC #### [address] [address] MCV (RBC) [Entitic vol] 87 fL Normal 80 - 100 [facility] Comment on above: Performed By: #### C BC #### [address] [address] NUCLEATED RBC 0.2 /100 WBC Normal [facility] Comment on above: Performed By: #### C BC #### [address] [address] Platelets (Bld) [#/Vol] 250 10*3/uL Normal 150 - 450 [facility] Comment on above: Performed By: #### C BC #### [address] [address] RBC 5.99 x10E12/L High 4.50 - 5.90 [facility] Comment on above: Performed By: #### C BC #### [address] [address] WBC (Bld) [#/Vol] 8.4 10*3/uL Normal 4.4 - 11.3 [facility] Comment on above: Performed By: #### C BC #### [address] [address] Laboratory - Hematology and Cell countson 04-11-2021 Erythrocyte distribution width (RBC) [Ratio] 16.5 % above high threshold See Below [facility] 120 Work Phone: Comment on above: Reference Range: 11. 5 - 14.5 Hematocrit (Bld) [Volume fraction] 51.8 % See Below [facility] Work Phone: Comment on above: Reference Range: 41. 0 - 52.0 Hemoglobin (Bld) [Mass/Vol] 17.0 g/dL See Below [facility] 120 Work Phone: Comment on above: Reference Range: 13. 5 - 17.5 MCHC (RBC) [Mass/Vol] 32.9 g/dL See Below [facility] 120 Work Phone: Comment on above: Reference Range: 32. 0 - 36.0 MCV (RBC) [Entitic vol] 87 fL 80 - 100 [facility] 120 Work Phone: Platelets (Bld) [#/Vol] 250 10*3/uL 150 - 450 -[facility] 120 Work Phone: RBC (Bld) [#/Vol] 5.99 {x10E12/L} above high threshold See Below -[facility] 120 Work Phone: Comment on above: Reference Range: 4.5 0 - 5.90 WBC (Bld) [#/Vol] 8.4 10*3/uL 4.4 - 11.3 -[facility] 120 Work Phone: No Panel Informationon 04-11 0.2 {/100_WBC} -[place] [address] Work Phone: CBCon 04-07-2021 Erythrocyte distribution width (RBC) [Ratio] 16.6 % High 11.5 - 14.5 [facility] Comment on above: Performed By: #### C BC #### [place] [id number] Hematocrit (Bld) [Volume fraction] 48.7 % Normal 41.0 - 52.0 [facility] Comment on above: Performed By: #### C BC #### [address] [address] Hemoglobin (Bld) [Mass/Vol] 16.0 g/dL Normal 13.5 - 17.5 [facility] Comment on above: Performed By: #### C BC #### [address] [address] MCHC (RBC) [Mass/Vol] 32.8 g/dL Normal 32.0 - 36.0 [facility] Comment on above: Performed By: #### C BC #### [address] [address] MCV (RBC) [Entitic vol] 86 fL Normal 80 - 100 [facility] Comment on above: Performed By: #### C BC #### [address] [address] Platelets (Bld) [#/Vol] 222 10*3/uL Normal 150 - 450 [facility] Comment on above: Performed By: #### C BC #### [address] [address] RBC 5.65 x10E12/L Normal 4.50 - 5.90 [facility] Comment on above: Performed By: #### C BC #### [address] [address] WBC (Bld) [#/Vol] 11.0 10*3/uL Normal 4.4 - 11.3 [facility] Comment on above: Performed By: #### C BC #### [address] [address] COMPREHENSIVE PANELon 2021 Albumin [Mass/Vol] 3.8 g/dL Normal 3.4 - 5.0 [facility] Comment on above: Performed By: #### C MP #### [address] [address] ALP [Catalytic activity/Vol] 89 U/L Normal 33 - 136 [facility] Comment on above: Performed By: #### C MP #### [address] [address] ALT [Catalytic activity/Vol] 18 U/L Normal 10 - 52 [facility] Comment on above: Result Comment: Kay ents treated with Sulfasalazine may generate falsely decreased results for ALT. Performed By: #### C MP #### [address] [address] Anion gap [Moles/Vol] 10 mmol/L Normal 10 - 20 [facility] Comment on above: Performed By: #### C MP #### [address] [address] AST [Catalytic activity/Vol] 23 U/L Normal 9 - 39 [facility] Comment on above: Performed By: #### C MP #### [address] [address] Bilirubin [Mass/Vol] 0.8 mg/dL Normal 0.0 - 1.2 [facility] Comment on above: Performed By: #### C MP #### [address] [address] Calcium [Mass/Vol] 8.4 mg/dL Low 8.6 - 10.3 [facility] Comment on above: Performed By: #### C MP #### [address] [address] Chloride [Moles/Vol] 106 mmol/L Normal 98 - 107 [facility] Comment on above: Performed By: #### C MP #### [address] [address] Creatinine [Mass/Vol] 1.00 mg/dL Normal 0.50 - 1.30 [facility] Comment on above: Performed By: #### C MP #### [address] [address] GFR/1.73 sq M.predicted among non-blacks MDRD (S/P/Bld) [Vol rate/Area] 81 mL/min/{1.73_m2} Normal >90 [facility] Comment on above: Result Comment: CALC ULATIONS OF ESTIMATED GFR ARE PERFORMED USING THE 2020 CKD-EPI STUDY REFIT EQUATION WITHOUT THE RACE VARIABLE FOR THE IDMS-TRACEABLE CREATININE METHODS. https://jasn.asnjournals.org/content//ASN.062994 6708 Performed By: #### C MP #### [address] [address] Glucose [Mass/Vol] 97 mg/dL Normal 74 - 99 [facility] Comment on above: Performed By: #### C MP #### [address] [address] HCO3 (Bld) [Moles/Vol] 28 mmol/L Normal 21 - 32 [facility] Comment on above: Performed By: #### C MP #### [address] [address] Potassium [Moles/Vol] 4.0 mmol/L Normal 3.5 - 5.3 [facility] Comment on above: Performed By: #### C MP #### [address] [address] Protein [Mass/Vol] 6.8 g/dL Normal 6.4 - 8.2 [facility] Comment on above: Performed By: #### C MP #### [address] [address] Sodium [Moles/Vol] 140 mmol/L Normal 136 - 145 [facility] Comment on above: Performed By: #### C MP #### [address] [address] Urea nitrogen [Mass/Vol] 24 mg/dL High 6 - 23 [facility] Comment on above: Performed By: #### C MP #### [address] [address] Laboratory - Chemistry and C hemistry - challengeon 04-07-2021 Albumin BCP dye [Mass/Vol] 3.8 g/dL 3.4 - 5.0 [place] [address] Work Phone: ALP [Catalytic activity/Vol] 89 U/L 33 - 136 [place] [address] Work Phone: ALT With P-5'-P [Catalytic activity/Vol] 18 U/L 10 - 52 [place] [address] Work Phone: Comment on above: Patients treated wit h Sulfasalazine may generate falsely decreased results for ALT. Anion gap [Moles/Vol] 10 mmol/L 10 - 20 [place] [address] Work Phone: AST With P-5'-P [Catalytic activity/Vol] 23 U/L 9 - 39 [place] [address] Work Phone: Bilirubin [Mass/Vol] 0.8 mg/dL 0.0 - 1.2 [place] [address] Work Phone: Calcium [Mass/Vol] 8.4 mg/dL below low threshold 8.6 - 10.3 [place] [address] Work Phone: Chloride [Moles/Vol] 106 mmol/L 98 - 107 [facility] 120 Work Phone: CO2 [Moles/Vol] 28 mmol/L 21 - 32 [facility] 120 Work Phone: Creatinine [Mass/Vol] 1.00 mg/dL See Below [facility] 120 Work Phone: Comment on above: Reference Range: 0.5 0 - 1.30 Glucose [Mass/Vol] 97 mg/dL 74 - 99 [facility] 120 Work Phone: Potassium [Moles/Vol] 4.0 mmol/L 3.5 - 5.3 [facility] 120 Work Phone: Protein [Mass/Vol] 6.8 g/dL 6.4 - 8.2 [facility] 120 Work Phone: Sodium [Moles/Vol] 140 mmol/L 136 - 145 [facility] 120 Work Phone: Urea nitrogen [Mass/Vol] 24 mg/dL above high threshold 6 - 23 [facility] 120 Work Phone: Laboratory - Hematology and Cell countson 04-07-2021 Erythrocyte distribution width (RBC) [Ratio] 16.6 % above high threshold See Below [facility] 120 Work Phone: Comment on above: Reference Range: 11. 5 - 14.5 Hematocrit (Bld) [Volume fraction] 48.7 % See Below [facility] 120 Work Phone: Comment on above: Reference Range: 41. 0 - 52.0 Hemoglobin (Bld) [Mass/Vol] 16.0 g/dL See Below [facility] 120 Work Phone: Comment on above: Reference Range: 13. 5 - 17.5 MCHC (RBC) [Mass/Vol] 32.8 g/dL See Below [facility] 120 Work Phone: Comment on above: Reference Range: 32. 0 - 36.0 MCV (RBC) [Entitic vol] 86 fL 80 - 100 [facility] 120 Work Phone: Platelets (Bld) [#/Vol] 222 10*3/uL 150 - 450 [facility] 120 Work Phone: RBC (Bld) [#/Vol] 5.65 {x10E12/L} See Below [facility] 120 Work Phone: Comment on above: Reference Range: 4.5 0 - 5.90 WBC (Bld) [#/Vol] 11.0 10*3/uL 4.4 - 11.3 [facility] 120 Work Phone: No Panel Informationon 04-07 81 {mL/min/1.73m2} >90 [facility] 120 Work Phone: Comment on above: CALCULATIONS OF MARV MATED GFR ARE PERFORMED USING THE 2020 CKD-EPI STUDY REFIT EQUATION WITHOUT THE RACE VARIABLE FOR THE IDMS-TRACEABLE CREATININE METHODS.https://jasn.asnjournals.org/content// N.7735063847 BASIC METABOLIC PANELon 03-20 Anion gap [Moles/Vol] 10 mmol/L Normal 10 - 20 [facility] Comment on above: Performed By: #### C BCDF #### [address] [address] Calcium [Mass/Vol] 9.3 mg/dL Normal 8.6 - 10.3 [facility] Comment on above: Performed By: #### C BCDF #### [address] [address] Chloride [Moles/Vol] 102 mmol/L Normal 98 - 107 [facility] Comment on above: Performed By: #### C BCDF #### [address] [address] Creatinine [Mass/Vol] 0.97 mg/dL Normal 0.50 - 1.30 [facility] Comment on above: Performed By: #### C BCDF #### [address] [address] GFR/1.73 sq M.predicted among non-blacks MDRD (S/P/Bld) [Vol rate/Area] 84 mL/min/{1.73_m2} Normal >90 [facility] Comment on above: Result Comment: CALC ULATIONS OF ESTIMATED GFR ARE PERFORMED USING THE 2020 CKD-EPI STUDY REFIT EQUATION WITHOUT THE RACE VARIABLE FOR THE IDMS-TRACEABLE CREATININE METHODS. https://jasn.asnjournals.org/content/early//ASN.813935 2538 Performed By: #### C BCDF #### [address] [address] Glucose [Mass/Vol] 108 mg/dL High 74 - 99 [facility] Comment on above: Performed By: #### C BCDF #### [address] [address] HCO3 (Bld) [Moles/Vol] 32 mmol/L Normal 21 - 32 [facility] Comment on above: Performed By: #### C BCDF #### [address] [address] Potassium [Moles/Vol] 4.1 mmol/L Normal 3.5 - 5.3 [facility] Comment on above: Performed By: #### C BCDF #### [address] [address] Sodium [Moles/Vol] 140 mmol/L Normal 136 - 145 [facility] Comment on above: Performed By: #### C BCDF #### [address] [address] Urea nitrogen [Mass/Vol] 19 mg/dL Normal 6 - 23 [facility] Comment on above: Performed By: #### C BCDF #### [address] [address] CBCon 04-06-2021 Erythrocyte distribution width (RBC) [Ratio] 16.0 % High 11.5 - 14.5 [facility] Comment on above: Performed By: #### C BCDF #### [address] [address] Hematocrit (Bld) [Volume fraction] 51.6 % Normal 41.0 - 52.0 [facility] Comment on above: Performed By: #### C BCDF #### [address] [address] Hemoglobin (Bld) [Mass/Vol] 17.0 g/dL Normal 13.5 - 17.5 [facility] Comment on above: Performed By: #### C BCDF #### [address] [address] MCHC (RBC) [Mass/Vol] 32.9 g/dL Normal 32.0 - 36.0 [facility] Comment on above: Performed By: #### C BCDF #### [address] [address] MCV (RBC) [Entitic vol] 87 fL Normal 80 - 100 [facility] Comment on above: Performed By: #### C BCDF #### [address] [address] Platelets (Bld) [#/Vol] 214 10*3/uL Normal 150 - 450 [facility] Comment on above: Performed By: #### C BCDF #### [address] [address] RBC 5.95 x10E12/L High 4.50 - 5.90 [facility] Comment on above: Performed By: #### C BCDF #### [address] [address] WBC (Bld) [#/Vol] 9.9 10*3/uL Normal 4.4 - 11.3 [facility] Comment on above: Performed By: #### C BCDF #### [address] [address] CRP, HIGH SENSITIVITYon - CRP, HIGH SENSITIVITY 20.8 mg/L Abnormal [facility] Comment on above: Result Comment: hsCR P INTERPRETATION mg/L < 1.0 LOW RELATIVE RISK OF CVD 1.0-3.0 AVERAGE RELATIVE RISK OF CVD > 3.0 HIGH RELATIVE RISK OF CVD Source: JOSUE TSumeet Arnett. et al. CIRCULATION 2003; 107:499-511. Performed By: #### C BCDF #### [place] [id number] [place] [address] Consult-Gastroenterologyon 0 04-06-2021 Consult-Gastroenterol paul Service: Service: Gastroenterology Consult: Consult requested by (Attending Name): Francisca Patterson Reason: acute gi bleeding ( patient is covid +) History of Present Illness: HPI: AMY SUN is a 70 year old Male presented to the emergency room evening with 24 hours of left lower quad abdominal pain and rectal bleeding. Bleeding described as initially blood mixed in stool then felice clots. He denies any fevers or chills but did feel ill Friday night with one episode of emesis. Does not recall any ill contacts has not been around anyone sick and has not eaten any unknown processed or uncooked foods. He denies any history of prior GI bleeding denies any history of upper GI bleeding or ulcer disease. 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 He did have an episode of hypoxemia last evening with the sats dropping into the mid 80s which recovered with oxygen. He denies any cough shortness of breath or exertional dyspnea. No prior history of significant lung injury. Past medical history significant for lingular cancer status post medical therapy only. Currently in remission treatment 10 years ago. He is also had remote vasectomy and remote inguinal hernia repair. Family history negative for GI malignancy positive for heart disease. 10 system review is negative except that noted above. Review Family/Social History and ROS: Social History: Smoking Status: former smoker (1) Allergies: No Known Allergies: Objective: Objective Information: T PRBPSpO2 [id number]% Date/Time2/18 7:382/18 7:18 7:18 7:18 7:38 Range(36.1C - 36.7C ) (52 - 69 ) (16 - 18 ) (84 - 145 )/ (59 - 71 ) (90% - 95% ) Physical Exam by System: Constitutional: Well developed, awake/alert/oriented x3, no distress, alert and cooperative Eyes: PERRL, EOMI, clear sclera ENMT: mucous membranes moist, no apparent injury, no lesions seen Head/Neck: Scarring on neck consistent with history of radiation therapy Respiratory/Thorax: Patent airways, CTAB, normal breath sounds with good chest expansion, thorax symmetric Cardiovascular: Regular, rate and rhythm, no murmurs, 2+ equal pulses of the extremities, normal S 1and S 2 Gastrointestinal: Abdomen soft mild tenderness left upper quadrant and left periumbilical region no rebound guarding or mass noted. Musculoskeletal: ROM intact, no joint swelling, normal strength Extremities: Trace pretibial edema left greater than right Neurological: alert and oriented x3, intact senses, motor, response and reflexes, normal strength Lymphatic: No significant lymphadenopathy Psychological: Appropriate mood and behavior Skin: Warm and dry, no lesions, no rashes Medications: Medications: Continuous Medications No continuous medications are active Scheduled Medications 1. Atorvastatin: 20 mg Oral At Bedtime 2. levoFLOXacin (LEVAQUIN) 500 mg IVPB/ Premixed Soln 100 mL: 100 mL IntraVenous Piggyback Every 24 Hours 3. metroNIDAZOLE (FLAGYL) 500 mg IVPB/ Premixed Soln 100 mL: 100 mL IntraVenous Piggyback Every 8 Hours 4. Multivitamin with Minerals: 1 tablet(s) Oral Daily 5. Pantoprazole Injectable: 40 mg IntraVenous Push Every 12 Hours 6. Valsartan: 160 mg Oral Daily PRN Medications 1. Acetaminophen: 650 mg Oral Every 4 Hours 2. Acetaminophen: 650 mg Oral Every 4 Hours 3. Ondansetron Injectable: 4 mg IntraVenous Push Every 4 Hours 4. Sore Throat Lozenge: 1 lozenge(s) Oral Every 2 Hours 5. traMADol: 100 mg Oral Every 6 Hours Recent Lab Results: Results: I have reviewed these laboratory results: Complete Blood Count 06-Apr-2021 06:07:00 ResultValue White Blood Cell Count 9.9 Red Blood Cell Count 5.95 H HGB 17.0 HCT 51.6 MCV 87 MCHC 32.9 PLT 214 RDW-CV 16.0 H Hemoglobin + Hematocrit 06-Apr-2021 00:09:00 ResultValue HCT 49.4 HGB 15.9 Procalcitonin, Serum 05-Apr-2021 14:34:00 ResultValue Procalcitonin, Serum 0.49 A Fibrinogen Assay 05-Apr-2021 14:33:00 ResultValue Fibrinogen 373 D-Dimer, VTE Exclusion 05-Apr-2021 14:33:00 ResultValue D-Dimer, VTE Exclusion [id number] A CRP, High Sensitivity 05-Apr-2021 14:33:00 ResultValue CRP, High Sensitivity 20.8 A Complete Blood Count + Differential 05-Apr-2021 09:28:00 ResultValue White Blood Cell Count 10.4 Nucleated Erythrocyte Count 0.1 Red Blood Cell Count 6.09 H HGB 17.6 H HCT 51.8 MCV 85 MCHC 34.0 PLT 222 RDW-CV 15.9 H Differential Comment SEE MANUAL DIFF Comprehensive Metabolic Panel 05-Apr-2021 09:28:00 ResultValue Glucose, Serum 105 H NA 141 K 4.0 CL 101 Bicarbonate, Serum 33 H Anion Gap, Serum 11 BUN 23 CREAT 0.97 GFR Male 84 (more content not included)... Normal [facility] Daily Progress Note-General Internal Medicineon 04-06-2021 Daily Progress Note-General Internal Medicine Consult Type: subsequent visit/care Service: General Internal Medicine Subjective Data: AMY SUN is a 70 year old Male who is Hospital Day # 2. Patient seen and examined Ambulating room at bedside Has had no bowel movement since admission Has some abdominal pain intermittent diffuse No nausea or vomiting Elevated d dimer in setting on new Covid 19 diagnosis On room air, no respiratory symptoms. Overnight Events: Patient had an uneventful night. Objective Data: Objective Information: T PRBPSpO2 [id number]% Date/Time04/06 7: 7: 7: 7: 7:38 Range(36.1C - 37C ) (52 - 73 ) (16 - 18 ) (84 - 145 )/ (59 - 104 ) (90% - 97% ) Highest temp of 37 C was recorded at 04/05 9:13 Pain reported at 04/05 21:12: 3 = Mild Physical Exam by System: Constitutional: Well developed, awake/alert/oriented x3, no distress, alert and cooperative Eyes: PERRL, EOMI, clear sclera ENMT: mucous membranes moist, no apparent injury, no lesions seen Head/Neck: Neck supple, no apparent injury, thyroid without mass or tenderness, No JVD, trachea midline, Respiratory/Thorax: Patent airways, CTAB, normal breath sounds with good chest expansion, thorax symmetric Cardiovascular: Regular, rate and rhythm, no murmurs, 2+ equal pulses of the extremities, normal S 1and S 2 Gastrointestinal: Nondistended, soft, non-tender, no rebound tenderness or guarding, no masses palpable, no organomegaly, +BS, no bruits Genitourinary: No Discharge, vesicles or other abnormalities Musculoskeletal: ROM intact, no joint swelling, normal strength Extremities: normal extremities, no cyanosis edema, contusions or wounds, no clubbing Neurological: alert and oriented x3, intact senses, motor, response and reflexes, normal strength Psychological: Appropriate mood and behavior Skin: Warm and dry, no lesions, no rashes Medication: Medications: Continuous Medications No continuous medications are active Scheduled Medications 1. Atorvastatin: 20 mg Oral At Bedtime 2. levoFLOXacin (LEVAQUIN) 500 mg IVPB/ Premixed Soln 100 mL: 100 mL IntraVenous Piggyback Every 24 Hours 3. metroNIDAZOLE (FLAGYL) 500 mg IVPB/ Premixed Soln 100 mL: 100 mL IntraVenous Piggyback Every 8 Hours 4. Multivitamin with Minerals: 1 tablet(s) Oral Daily 5. Pantoprazole Injectable: 40 mg IntraVenous Push Every 12 Hours 6. Valsartan: 160 mg Oral Daily PRN Medications 1. Acetaminophen: 650 mg Oral Every 4 Hours 2. Acetaminophen: 650 mg Oral Every 4 Hours 3. Ondansetron Injectable: 4 mg IntraVenous Push Every 4 Hours 4. Sore Throat Lozenge: 1 lozenge(s) Oral Every 2 Hours 5. traMADol: 100 mg Oral Every 6 Hours Recent Lab Results: Results: I have reviewed these laboratory results: Complete Blood Count 06-Apr-2021 06:07:00 ResultValue White Blood Cell Count 9.9 Red Blood Cell Count 5.95 H HGB 17.0 HCT 51.6 MCV 87 MCHC 32.9 PLT 214 RDW-CV 16.0 H Hemoglobin + Hematocrit 06-Apr-2021 00:09:00 ResultValue HCT 49.4 HGB 15.9 Procalcitonin, Serum 05-Apr-2021 14:34:00 ResultValue Procalcitonin, Serum 0.49 A D-Dimer, VTE Exclusion 05-Apr-2021 14:33:00 ResultValue D-Dimer, VTE Exclusion [id number] A Radiology Results: Results: Impression: 1. Diffuse wall thickening and submucosal edema of the descending colon suggesting a nonspecific colitis, most likely of infectious or inflammatory etiology. There are some diverticula in this region although no definite evidence of diverticulitis. No evidence of abscess, perforation, or obstruction. 2. Mildly prominent small bowelwithout focal transition, likely ileus. 3. Normal size and background density of liver. Small area of focal fat is grossly unchanged from remote prior study. 4. Simple renal cysts bilaterally and several renal hypodensities noted which are too small to characterize, however are most likely cysts. 5. Mild fusiform aneurysmal dilation of the infrarenal aorta measuring 3.1 x 2.8 cm. Diffuse atherosclerotic disease is noted. 6. Tiny centrilobular ground-glass nodularities in the right middle lobe and lower lung suggest bronchiolitis, could be aspiration related, however no definite evidence of pneumonia. CT Abdomen and Pelvis with IV Contrast [Apr 05 2021 11:21AM] Impression: Patchy density in the right midlung, which may be related to atelectasis or infiltrate. Xray Chest 1 View [Apr 05 2021 10:30AM] Impression: 1. Diffuse wall thickening and submucosal edema of the descending colon suggesting a nonspecific colitis, most likely of infectious or inflammatory etiology. There are some diverticula in this region although no definite evidence of diverticulitis. No evidence of abscess, perforation, or obstruction. (more content not included)... Normal [facility] Discharge [id number] Discharge Profile2 Discharge Orders: Anticipated Discharge Date: Anticipated Discharge [id number] Anticipated Discharge Time16:00 DNAR: Code Status at Discharge: Full Code Activity: activity as tolerated. May not return to school/work until follow-up visit with pcp Instructions: covid 19. Diet: Dietresume normal diet Labs 1: Lab Test(s)H&H Date To Be Drawn04/09/21 Call Results ToDr. Jaimes Additional Orders: Additional Instructions Follow up with PCP within 1 week of discharge: infrarenal aorta aneurysmal dilation 3.1 x 2.8 cm Also please follow-up with your primary care physician to discuss a formal sleep study and a pulmonary function test. Follow up with gastroenterology within 1 week of discharge Resume home medications New medications: Levaquin 500 mg tablet daily for 9 days Flagyl 500 mg every 8 hours for 9 days Lactobacillus daily Zinc daily Vitamin C daily Vitamin D daily Have H&H bloodwork drawn April 09, 2021 Call Provider If (Homegoing Patients): Breathing faster than normal. Breathing harder than normal or having retractions. Fever of 100.4 F (38 C) or higher. Temperature is greater than 102 degrees. Chills. Drinking less than normal. Not being able to go 4-6 hours between albuterol treatments. Urinating less than normal, over 1 day. Urinating less than 4 times per day. Acting very sleepy and difficult to awaken. Vomiting (throwing up) and not able to eat or drink for 12 hours. 3 or more loose, watery bowel movements in 24 hours (diarrhea). Any new concerning symptoms. 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 RT completed February 28, 2009. He presented to the emergency department for having 3 episodes of hematochezia. He had large dark clots in his stool. And his had him report to the emergency department. Yesterday he felt fine up until the evening. At that time he felt weak and chills. It was his symptoms that was consistent with migraines except he did not have a headache. And then at that time he had a large bloody bowel movement with clots. After he had the third 1 his made him report to the emergency department. He denies any respiratory symptoms including cough congestion or upper respiratory symptoms. He has had colonoscopies in the past that per patient's were normal. He has never had any gastrointestinal bleeding in the past. He is not taking any NSAIDs. He is not on any antiplatelets. And he is not on blood thinners. He ate for breakfast in the morning 3 pieces of sausage and eggs. And did not eat the rest of the day. On presentation to the emergency department he was afebrile and hemodynamically stable. White blood cell count normal at 10.4, hemoglobin 17.6 with a baseline of 15-to 16, hematocrit 51.8 and platelet count 222. Absolute neutrophil count 8.11. INR 1.2, prothrombin time 13.6, D-dimer 1176 and fibrinogen 373. Glucose 105, sodium 141, potassium 4.0, bicarbonate 33, BUN 23, creatinine 0.97 with normal hepatic profile. Ferritin normal at 58. Lactate normal at 0.6. Influenza A&B negative. He was found to be Covid positive. In the emergency department he was treated with dexamethasone 10 mg IV once and Flagyl 500 mg IV once. He is being admitted for further evaluation. I seen and examined patient on the medical floor since admission he has not had any bloody stools. Past medical history: As stated above Family history: Coronary artery disease Social history: Former smoker he quit after 46 years, denies illicit or alcohol use Past surgical history: Neck surgery 2008, inguinal hernia repair 1987 and vasectomy Hospital course: Patient admitted for GI bleeding and subsequently found to have Covid 19. Patient has long 40 plus year smoking history and has never had PFt for any type of COPD diagnosis. He has been on room air and 3 lpm nasal cannula. Denies any cough, congestion, shortness of breath, chest pain. He described passing large red clots from the rectum. Patient was placed on IV Protonix and h/h monitored, remained stable. No reports of any recurrence in rectal bleeding or hematochezia. At first GI was contacted by floor nursing and was indicated he could be discharged with outpatient follow ups. He sas some diffuse lower intermittent abdominal pain, indicates passed with urinating, denies any frequen (more content not included)... Normal [facility] HGB + HCTon 04-06-2021 Hematocrit (Bld) [Volume fraction] 49.4 % Normal 41.0 - 52.0 [facility] Comment on above: Performed By: #### H H #### [place] [address] Hemoglobin (Bld) [Mass/Vol] 15.9 g/dL Normal 13.5 - 17.5 [facility] Comment on above: Performed By: #### H H #### [place] [address] HCT Canceled [facility] Comment on above: Order Comment: TEST HGB + HCT WAS CANCELLED, 04/06/2021 00:10 Duplicate, drawn already. Performed By: #### H H ####[place] [address] HGB Canceled Normal [facility] Comment on above: Order Comment: TEST HGB + HCT WAS CANCELLED, 04/06/2021 00:10 Duplicate, drawn already. Performed By: #### H H ####[place] [id number] Laboratory - Chemistry and C hemistry - challengeon 04-06-2021 Anion gap [Moles/Vol] 10 mmol/L 10 - 20 - [facility] 120 Work Phone: Calcium [Mass/Vol] 9.3 mg/dL 8.6 - 10.3 MP-[facility] v [facility] 120 Work Phone: Chloride [Moles/Vol] 102 mmol/L 98 - 107 MP[facility] n[facility] 120 Work Phone: CO2 [Moles/Vol] 32 mmol/L 21 - 32 MP-[facility]iv [facility] 120 Work Phone: Creatinine [Mass/Vol] 0.97 mg/dL See Below - Univ [facility] 120 Work Phone: Comment on above: Reference Range: 0.5 0 - 1.30 Glucose [Mass/Vol] 108 mg/dL above high threshold 74 - 99 -[facility] 120 Work Phone: Potassium [Moles/Vol] 4.1 mmol/L 3.5 - 5.3 MP- Univ [facility] 120 Work Phone: Sodium [Moles/Vol] 140 mmol/L 136 - 145 MP-Uni v [facility] 120 Work Phone: Urea nitrogen [Mass/Vol] 19 mg/dL 6 - 23 -Univ [place] [address] Work Phone: Laboratory - Coagulationon 0 04-06-2021 INR Coag (PPP) [Relative time] 1.2 {INR} above high threshold 0.9 - 1.1 -Univ [facility] 120 Work Phone: PT Coag (PPP) [Time] 14.2 s above high threshold 9.8 - 13.4 -Univ [facility] 120 Work Phone: Comment on above: Note new reference chuyita soto as of 01/16/2021 at 10:00am. Laboratory - Hematology and Cell countson 04-06-2021 Erythrocyte distribution width (RBC) [Ratio] 16.0 % above high threshold See Below -Univ [facility] 120 Work Phone: Comment on above: Reference Range: 11. 5 - 14.5 Hematocrit (Bld) [Volume fraction] 51.6 % See Below -[facility] 120 Work Phone: Comment on above: Reference Range: 41. 0 - 52.0 Hemoglobin (Bld) [Mass/Vol] 17.0 g/dL See Below MP-[facility] 120 Work Phone: Comment on above: Reference Range: 13. 5 - 17.5 MCHC (RBC) [Mass/Vol] 32.9 g/dL See Below MP- Univ [facility] 120 Work Phone: Comment on above: Reference Range: 32. 0 - 36.0 MCV (RBC) [Entitic vol] 87 fL 80 - 100 [facility] 120 Work Phone: Platelets (Bld) [#/Vol] 214 10*3/uL 150 - 450 [facility] 120 Work Phone: RBC (Bld) [#/Vol] 5.95 {x10E12/L} above high threshold See Below MP-[facility] 120 Work Phone: Comment on above: Reference Range: 4.5 0 - 5.90 WBC (Bld) [#/Vol] 9.9 10*3/uL 4.4 - 11.3 [facility] 120 Work Phone: Hematocrit (Bld) [Volume fraction] 49.4 % See Below [facility] 120 Work Phone: Comment on above: Reference Range: 41. 0 - 52.0 Hemoglobin (Bld) [Mass/Vol] 15.9 g/dL See Below [facility] 120 Work Phone: Comment on above: Reference Range: 13. 5 - 17.5 No Panel Informationon 04-06 84 {mL/min/1.73m2} >90 [facility] 120 Work Phone: Comment on above: CALCULATIONS OF MARV MATED GFR ARE PERFORMED USING THE 2020 CKD-EPI STUDY REFIT EQUATION WITHOUT THE RACE VARIABLE FOR THE IDMS-TRACEABLE CREATININE METHODS.https://jasn.asnjournals.org/content// N.5023524807 Nutrition Therapy-Noteon Nutrition Therapy-Note Assessment Subjective/Objective: Note Type: Note Note Authored by: Registered Dietitian Tapping Machine Operator Pager Number: [phone] ext [phone] or doc halo Nutrition Note: The patient is a 70 year old Male admitted with infectious colitis. Consult generated from admissions screening for MST-3. Pt presented after having 3 episodes of hematochezia. Assessment completed remotely. Called and spoke with pt's via telephone - states pt has good appetite and ate a large lunch today. Pt's does not believe he has had any weight loss recently. States he is to be discharged today and has no nutrition concerns. Full assessment not warranted at this time. Time Spent (minutes): 30 Nutrition Support: no Electronic Signatures: Jennifer Finn (SUE, LD) (Signed 06-Apr-2021 14:38) Authored: Assessment Subjective/Objective, Time Spent/Nutrition Support Last Updated: 06-Apr-2021 14:38 by Jennifer Finn (SUE, LD) [facility] Order Reconciliationon 04-06 Order Reconciliation Page 1 Discharge Reconciliation Document Reconciliation Type: Discharge requested on behalf of Glenys Calloway (Advanced Practice Nurse-Admit) done by Glenys Calloway ([facility]) Discharge - Partial Reconciliation: 06-Apr-2021 12:56 by: Carmel Cotter ([facility]) Discharge - Reconciliation: 06-Apr-2021 13:12 by: Carmel Cotter ([facility]) Discharge - Reset to Incomplete: 06-Apr-2021 13:14 by: Carmel Cotter ([facility]) Discharge - Reconciliation: 06-Apr-2021 13:14 by: Carmel Cotter ([facility]) Discharge - Reset to Incomplete: 07-Apr-2021 08:32 by: Glenys Calloway ([facility]) Discharge - Reconciliation: 07-Apr-2021 08:33 by: Glenys Calloway ([facility]) Discharge - Reset to Incomplete: 07-Apr-2021 09:47 by: Glenys Calloway ([facility]) Discharge - Reconciliation: 07-Apr-2021 09:48 by: Glenys Calloway ([facility]) Home Medications EnteredHOME MEDICATIONS AT DISCHARGE DateReconciliation Comment/ Additional Information Excedrin oral tablet 2 tab(s) orally every 6 hours, As Needed 05-Apr-2021 11:10 Discontinued; Discontinue from ORM Excedrin oral tablet is not required famotidine 40 mg oral tablet 1 tab(s) orally once a day 05-Apr-2021 11:06 Discontinued; Discontinue from ORM Multiple Vitamins oral tablet 1 tab(s) orally once a day 05-Apr-2021 11:10 Discontinued; Discontinue from ORM Multiple Vitamins oral tablet is not required omeprazole 20 mg oral delayed release tablet 1 tab(s) orally once a day (at bedtime) 05-Apr-2021 11:07 Discontinued; Discontinue from ORM omeprazole 20 mg oral delayed release tablet is not required rosuvastatin 5 mg oral tablet 1 tab(s) orally once a day (at bedtime) 05-Apr-2021 11:07 rosuvastatin 5 mg oral tablet 1 tab(s) orally once a day (at bedtime) 05-Apr-2021 11:07 rosuvastatin 5 mg oral tablet is continued as rosuvastatin 5 mg oral tablet testosterone topical 2% ointment Apply topically to affected area once a day 05-Apr-2021 11:08 testosterone topical 2% ointment Apply topically to affected area once a day 05-Apr-2021 11:08 testosterone topical 2% ointment is continued as testosterone topical 2% ointment traMADol 50 mg oral tablet 1 tab(s) orally once a day (at bedtime) 05-Apr-2021 11:09 traMADol 50 mg oral tablet 1 tab(s) orally once a day (at bedtime) 05-Apr-2021 11:09 traMADol 50 mg oral tablet is continued as traMADol 50 mg oral tablet traMADol 50 mg oral tablet 2 tab(s) orally once a day (in the morning) 05-Apr-2021 11:09 traMADol 50 mg oral tablet 2 tab(s) orally once a day (in the morning) 05-Apr-2021 11:09 traMADol 50 mg oral tablet is continued as traMADol 50 mg oral tablet valsartan 160 mg oral capsule 1 cap(s) orally once a day (in the morning) 05-Apr-2021 11:10 valsartan 160 mg oral capsule 1 cap(s) orally once a day (in the morning) 05-Apr-2021 11:10 valsartan 160 mg oral capsule is continued as valsartan 160 mg oral capsule Current OrdersDateHOME MEDICATIONS AT DISCHARGE DateReconciliation Comment/ Additional Information Acetaminophen Tablet (TYLENOL)DOSE = 650 mg Oral Every 4 Hours, PRN Pain - Mild (1-3) 05-Apr-2021 14:28 acetaminophen 325 mg oral tablet 2 tab(s) orally every 4 hours, As needed, Pain - Mild (1-3) 06-Apr-2021 13:12 Acetaminophen is continued as acetaminophen 325 mg oral tablet Acetaminophen Tablet (TYLENOL)DOSE = 650 mg Oral Every 4 Hours, PRN Temp Greater Than or Equal to 38.0 C 05-Apr-2021 14:28 Acetaminophen is not required Atorvastatin Tablet (LIPITOR)DOSE = 20 mg Oral At BedtimeNotes from Pharmacy: Substitution for Rosuvastatin (CRESTOR) 5mg Oral At Bedtime 05-Apr-2021 16:55 Atorvastatin is not required levoFLOXacin (LEVAQUIN) 500 mg IVPB/ Premixed Soln 100 mL Every 24 HoursRecommended Infusion Time: 60 minute(s) 05-Apr-2021 14:28 levoFLOXacin (LEVAQUIN) 500 mg IVPB/ Premixed Soln 100 mL is not required metroNIDAZOLE (FLAGYL) 500 mg IVPB/ Premixed Soln 100 mL Every 8 HoursRecommended Infusion Time: 60 minute(s) 05-Apr-2021 14:28 metroNIDAZOLE (FLAGYL) 500 mg IVPB/ Premixed Soln 100 mL is not required Multivitamin with Minerals TabletDOSE = 1 tablet(s) Oral Daily 05-Apr-2021 16:55 Multivitamin with Minerals is not required Ondansetron Injectable (ZOFRAN)DOSE = 4 mg IntraVenous Push Every 4 Hours, PRN Nausea and/or Vomiting 05-Apr-2021 14:28 Ondansetron Injectable is not required Pantoprazole Injectable (PROTONIX)DOSE = 40 mg IntraVenous Push Every 12 Hours 05-Apr-2021 14:30 Pantoprazole Injectable is not required Sore Throat Lozenge LozengeDOSE = 1 lozenge(s) Oral Every 2 Hours, PRN Sore ThroatCa lozenge(s)/DOSE x 1 = 1 lozenge(s)/Dose (Daily Total is 12 lozenge(s)) 05-Apr-2021 14:28 Sore Throat Lozenge is not required traMADol Tablet (ULTRAM)DOSE = 100 mg Oral Every 6 Hours, PRN Pain - Mod (4-6) 05-Apr-2021 16:55 traMADol is not required Valsartan Tablet (DIOVAN)DOSE = 160 mg Oral Daily 06-Apr-2021 08:10 Valsartan is not required Home Medications Added During Discharge Reconciliation ascorbic acid 5 (more content not included)... Normal [facility] PROCALCITONINon 04-06-2021 PROCALCITONIN 0.49 ng/mL Abnormal <=0.07 [facility] Comment on above: Result Comment: Proc alcitonin (PCT) results measured serially can aid in decision-making for antibiotic discontinuation in patients with suspected or confirmed sepsis in conjunction with additional clinical information. Antibiotic discontinuation may be considered with a change in PCT of >80% from the peak result or when PCT falls below 0.50 ng/mL. . Procalcitonin results should not be used in isolation but should be interpreted in conjunction with additional clinical and laboratory findings. Procalcitonin results should not be used to guide the initiation of antibiotic therapy. . Falsely low PCT values in the presence of bacterial infection may occur in early infection, with atypical pathogens, localized infections, and subacute infectious endocarditis. . Falsely elevated results outside of severe bacterial infection/sepsis may be seen in patients with renal failure or insufficiency, severe trauma or sheffield, recent major abdominal/cardiac surgery, acute multi-organ failure, rarely in patients with medullary thyroid carcinoma and rare neuroendocrine tumors, and non-specific interfering antibodies (heterophile antibodies, rheumatoid factor, human anti-mouse antibodies (HAMA), etc). . Performance of the PCT test in pediatric patients (<18yo), women, immunocompromised patients, and patients on immunomodulatory medications has not been evaluated. Performed By: #### C BCDF #### [address] [address] PT/INRon 04-06-2021 PT Coag (PPP) [Time] 14.2 s High 9.8 - 13.4 [facility] Comment on above: Result Comment: Note new reference range as of 01/16/2021 at 10:00am. Performed By: #### P TINR ####[address] [address] PT, INR 1.2 High 0.9 - 1.1 [facility] Comment on above: Performed By: #### P TINR ####[address] Angio Chest For PEon 0 04-06-2021 CT Angio Chest For PE Normal -[facility] 120 Work Phone: Admission Risk Screen - Adul ton 04-05-2021 Admission Risk Screen - Adult Allergies: Allergies: No Known Allergies: Patient Verification: New W ID Band Applied in my Departmentyes Patient Identity Verified Bypatient ID Band FULL Name, include Middle, spelling matches patient's ID used for verificationyes ID Band Matches Patient ID used for Verficationyes ID Band MRN Matches EMR MRNyes Visitor Restriction: Coronavirus Visitor Restriction: Reasonable restrictions to in-person visitors will be observed due to current coronavirus pandemic. Travel History: COVID-19 Screening Completedpositive for exposure Travel or Exposure Past 30 DaysNO travel to International locations in the past 30 days Ebola AlertFor Ebola-like Symptoms: Isolate Patient and Notify Provider/Waterproof Bag Sewer For Contact: Notify Provider/Waterproof Bag Sewer Advance Directive: Advance Directive/DNRno Advance Directive Information Givenpatient/family declined [place] Fall Screen: History of falling (immediate or previous)no (0) Secondary Diagnosisyes (15) Intravenous Therapy/ Heparin/Saline Lockyes (20) Gait/Transferringnorma l/bedrest/wheelchair (0) Ambulatory Aidsnone/bedrest/nurse assist (0) Mental Statusoriented to own ability (0) Score: Low risk (<25). Moderate risk (25-44). High risk (>44).35 [place] InterventionsMODERATE INTERVENTIONS: *Low Interventions Plus: * falls risk band/sticker applied to patient, *yellow non-skid footwear, *instruct to call for assistance before getting out of bed, *bed/chair/bedside commode/toilet alarms, *sensory devices/ambulatory aides available and in reach, *medications reviewed for potential side effects and care planning. Family Violence Screen: Are you or have you been threatened or abused physically, emotionally, or sexually by anyoneno Do you feel UNSAFE going back to the place where you are livingno Clinical assessment: Are there any apparent signs of injuries/behaviors that could be related to abuse/neglectno Social Service Consult for abuse/neglect needed this visitno Functional Screen: Functional Screen: In the recent/past 2-4 weeks, patient or family have noticedno issues that require a speech/language consult at this time AM-PAC- Basic Mobility/Daily Activity: Patient baseline bedboundno Turning from your back to your side while in a flat bed without using bedrailsnone Moving from lying on your back to sitting on the side of a flat bed without using bedrailsnone Moving to and from bed to chair (including a wheelchair)none Standing up from a chair using your arms (e.g. wheelchair or bedside chair) none To walk in hospital roomnone Climbing 3-5 steps with railingnone Basic Mobility - Total Score24 Putting on and taking off regular lower body clothingnone Bathing (including washing, rinsing, drying)none Putting on and taking off regular upper body clothingnone Toileting, which includes using toilet, bedpan or urinalnone Taking care of personal grooming such as brushing teethnone Eating Mealsnone Daily Activity - Total Score24 Learning Assessment (Patient): Patient is Able to be Assessed for Learningyes Factors Influencing Readiness to Learnacuteness of illness Factors that Impact Ability to Learnhearing problems Devices/Methods Used to Communicatenone Learning Preferencesverbal instruction; individual instruction Cultural Considerationsnone Developmental Considerationsnone Rastafari Considerationsnone Learning Assessment (Other Learner): Other learner availableno Depression Screen: During the past month, have you often been bothered by feeling down, depressed or hopelessno During the past month, have you often had little interest or pleasure in doing thingsno Have you had any thoughts of harming anyone elseno (1) [place] Suicide: Risk Screen Not Applicable/Able to Answerable to be screened In the Past Month: Have you wished you were or could go to sleep and not wake upno(1) In the Past Month: Have you had any actual thoughts of killing yourself no(1) Lifetime: Have you ever done, started to do, or prepared to do anything to end your lifeno [place] Suicide Risknegative Adult Nutrition Screen: Have you recently lost weight without tryingyes; 14-23 lb Have you been eating poorly because of a decreased appetiteyes Malnutrition Screening Tool Score3 Malnutrition Screening Tool RiskMST = 2 or more At Risk. Eating poorly and/or recent weight loss Nutrition Consult needed this visityes Can Patient Participate in Room Serviceyes Patient requires Paper Dishes/Plastic Utensilsyes (sends order) Pain Screen: Pain Scalenumerical 0-10 Pain Scale Educationteaching provided Current Pain Level7 = Severe Acceptable Pain Level0 = None Expression of Pain (nonverbal)verbalizati on Chronic Painno Spiritual Screen: Are there any cultural, spiritual, zoroastrianism practices/values/needs that are important for us to knowno (more content not included)... Normal [facility] CBC AND DIFFERENTIALon 04-05 DIFFERENTIAL SEE MANUAL DIFF Normal [facility] Comment on above: Performed By: #### C BCDF #### [address] [address] Erythrocyte distribution width (RBC) [Ratio] 15.9 % High 11.5 - 14.5 [facility] Comment on above: Performed By: #### C BCDF #### [address] [address] Hematocrit (Bld) [Volume fraction] 51.8 % Normal 41.0 - 52.0 [facility] Comment on above: Performed By: #### C BCDF #### [address] [address] Hemoglobin (Bld) [Mass/Vol] 17.6 g/dL High 13.5 - 17.5 [facility] Comment on above: Performed By: #### C BCDF #### [address] [address] MCHC (RBC) [Mass/Vol] 34.0 g/dL Normal 32.0 - 36.0 [facility] Comment on above: Performed By: #### C BCDF #### [address] [address] MCV (RBC) [Entitic vol] 85 fL Normal 80 - 100 [facility] Comment on above: Performed By: #### C BCDF #### [address] [address] NUCLEATED RBC 0.1 /100 WBC Normal [facility] Comment on above: Performed By: #### C BCDF #### [address] [address] Platelets (Bld) [#/Vol] 222 10*3/uL Normal 150 - 450 [facility] Comment on above: Performed By: #### C BCDF #### [address] [address] RBC 6.09 x10E12/L High 4.50 - 5.90 [facility] Comment on above: Performed By: #### C BCDF #### [address] [address] WBC (Bld) [#/Vol] 10.4 10*3/uL Normal 4.4 - 11.3 [facility] Comment on above: Performed By: #### C BCDF #### [address] [address] CHEST 1 VIEWon 04-05-2021 CHEST 1 VIEW Patient Name: AMY SUN STUDY: CHEST 1 VIEW; 04/05/2021 9:54 am INDICATION: dyspnea. COMPARISON: 12/20/2016 ACCESSION NUMBER(S): [id number] ORDERING CLINICIAN: CALEB CHOPRA FINDINGS: Patchy density is seen in the right mid lung. The heart is not enlarged. No pleural effusion or pneumothorax is seen. IMPRESSION: Patchy density in the right midlung, which may be related to atelectasis or infiltrate. Electronically signed by: CHRISTIANO SAEED MD Normal [facility] COMPREHENSIVE PANELon 2021 Albumin [Mass/Vol] 4.1 g/dL Normal 3.4 - 5.0 [facility] Comment on above: Performed By: #### C BCDF #### [address] [address] ALP [Catalytic activity/Vol] 123 U/L Normal 33 - 136 [facility] Comment on above: Performed By: #### C BCDF #### [address] [address] ALT [Catalytic activity/Vol] 22 U/L Normal 10 - 52 [facility] Comment on above: Result Comment: Kay ents treated with Sulfasalazine may generate falsely decreased results for ALT. Performed By: #### C BCDF #### [address] [address] Anion gap [Moles/Vol] 11 mmol/L Normal 10 - 20 [facility] Comment on above: Performed By: #### C BCDF #### [address] [address] AST [Catalytic activity/Vol] 21 U/L Normal 9 - 39 [facility] Comment on above: Performed By: #### C BCDF #### [address] [address] Bilirubin [Mass/Vol] 0.8 mg/dL Normal 0.0 - 1.2 [facility] Comment on above: Performed By: #### C BCDF #### [address] [address] Calcium [Mass/Vol] 9.4 mg/dL Normal 8.6 - 10.3 [facility] Comment on above: Performed By: #### C BCDF #### [address] [address] Chloride [Moles/Vol] 101 mmol/L Normal 98 - 107 [facility] Comment on above: Performed By: #### C BCDF #### [address] [address] Creatinine [Mass/Vol] 0.97 mg/dL Normal 0.50 - 1.30 [facility] Comment on above: Performed By: #### C BCDF #### [address] [address] GFR/1.73 sq M.predicted among non-blacks MDRD (S/P/Bld) [Vol rate/Area] 84 mL/min/{1.73_m2} Normal >90 [facility] Comment on above: Result Comment: CALC ULATIONS OF ESTIMATED GFR ARE PERFORMED USING THE 2020 CKD-EPI STUDY REFIT EQUATION WITHOUT THE RACE VARIABLE FOR THE IDMS-TRACEABLE CREATININE METHODS. https://jasn.asnjournals.org/content//ASN.731821 0690 Performed By: #### C BCDF #### [address] [address] Glucose [Mass/Vol] 105 mg/dL High 74 - 99 [facility] Comment on above: Performed By: #### C BCDF #### [address] [address] HCO3 (Bld) [Moles/Vol] 33 mmol/L High 21 - 32 [facility] Comment on above: Performed By: #### C BCDF #### [address] [address] Potassium [Moles/Vol] 4.0 mmol/L Normal 3.5 - 5.3 [facility] Comment on above: Performed By: #### C BCDF #### [address] [address] Protein [Mass/Vol] 7.7 g/dL Normal 6.4 - 8.2 [facility] Comment on above: Performed By: #### C BCDF #### [address] [address] Sodium [Moles/Vol] 141 mmol/L Normal 136 - 145 [facility] Comment on above: Performed By: #### C BCDF #### [address] [address] Urea nitrogen [Mass/Vol] 23 mg/dL Normal 6 - 23 [facility] Comment on above: Performed By: #### C [facility] #### [facility] [facility] [address] [place] [address] CRP, High Sensitivityon 03-20 CRP High sensitivity method [Mass/Vol] 20.8 mg/L Abnormal [facility] 120 Work Phone: Comment on above: hsCRP INTERPRETATION mg/L < 1.0 LOW RELATIVE RISK OF CVD 1.0-3.0 AVERAGE RELATIVE RISK OF CVD > 3.0 HIGH RELATIVE RISK OF CVD Source:JOSUE TSumeet Arnett. et al. CIRCULATION 2003;[id number]. CT ABDOMEN AND PELVIS W IV C [facility] 04-05-2021 CT ABDOMEN AND PELVIS W IV CONTRAST Patient Name: AMY SUN STUDY: CT ABDOMEN AND PELVIS W IV CONTRAST; 04/05/2021 11:04 am INDICATION: Abdominal pain COMPARISON: 08/10/2013. MR, 09/07/2013 ACCESSION NUMBER(S): [id number] ORDERING CLINICIAN: CALEB CHOPRA TECHNIQUE: CT of the abdomen and pelvis was performed. Standard contiguous axial images were obtained at 3 mm slice thickness through the abdomen and pelvis. Coronal and sagittal reconstructions at 3 mm slice thickness were performed. 90 milliliter OMNIPAQUE 350 contrast administered intravenously without immediate complication. FINDINGS: LOWER CHEST: Mild right middle lobe and lower lung patchy tiny ground-glass centrilobular nodularities noted, may be indicative of inflammatory process or aspiration. No consolidation. No pleural effusion. Normal heart size. Patulous distal esophagus suggest reflux may be present, however there is no definite hiatal hernia. ABDOMEN: LIVER: Normal size, contour, and density. No generalized diffuse fatty infiltration is evident. Geographic hypoattenuating parenchyma in segment 4B near the keenan hepatis, through which vessels course in a normal manner, is likely focal fat, similar size and location on prior MRI. There is no suspicious hepatic lesion. GALLBLADDER: Normal size gallbladder. No radiopaque gallstones. BILE DUCTS: Normal caliber. PANCREAS: Pancreas is fatty. No dilatation of the main duct. No evidence of acute pancreatitis or mass. SPLEEN: Normal size spleen. Small splenule noted posterior to the spleen. ADRENAL GLANDS: Within normal limits. KIDNEYS AND URETERS: Normal size kidneys. No hydroureteronephrosis or urinary tract stone. Multiple bilateral hypodense lesions are present, many of which are too small to characterize. There is a simple fluid attenuation cyst in the left lower kidney measuring 2.2 cm and a 1.6 cm medial right mid kidney simple fluid density cyst. PELVIS: BLADDER: Within normal limits. REPRODUCTIVE ORGANS: Mildly enlarged prostate gland. Seminal vesicles appear normal. BOWEL: The stomach is unremarkable. Mildly prominent small bowel caliber throughout, with no focal transition or evidence of obstruction. No significant small bowel wall thickening or abnormal enhancement. There is colonic wall thickening and submucosal edema throughout the left colon, suggesting colitis. Minimal surrounding fat stranding is present. There are few colonic diverticula in this region, diverticula do not appear to be focally inflamed, favor colitis over diverticulitis. The remainder of the colon is unremarkable. The appendix is normal. VESSELS: Diffuse atherosclerotic disease. Fusiform infrarenal aortic aneurysmal dilation measures 3.1 by 2.8 cm. No dissection. The principal vasculature of the abdomen and pelvis is patent. PERITONEUM/RETROPERITO NEUM/LYMPH NODES: There is no free or loculated intraperitoneal or retroperitoneal fluid collection, no free intraperitoneal air. No adenopathy. BONES AND ABDOMINAL WALL: No evidence of acute fracture. No suspicious osseous lesions are identified. Multilevel mild degenerative changes are present in the spine and in the hips. Fat containing indirect left inguinal hernia noted. IMPRESSION: 1. Diffuse wall thickening and submucosal edema of the descending colon suggesting a nonspecific colitis, most likely of infectious or inflammatory etiology. There are some diverticula in this region although no definite evidence of diverticulitis. No evidence of abscess, perforation, or obstruction. 2. Mildly prominent small bowel without focal transition, likely ileus. 3. Normal size and background density of liver. Small area of focal fat is grossly unchanged from remote prior study. 4. Simple renal cysts bilaterally and several renal hypodensities noted which are too small to characterize, however are most likely cysts. 5. Mild fusiform aneurysmal dilation of the infrarenal aorta measuring 3.1 x 2.8 cm. Diffuse atherosclerotic disease is noted. 6. Tiny centrilobular ground-glass nodularities in the right middle lobe and lower lung suggest bronchiolitis, could be aspiration related, however no definite evidence of pneumonia. Electronically signed by: EBENEZER ORTEGA MD Normal [facility] CT Abdomen and Pelvis with I V Contraston 04-05-2021 CT Abdomen and Pelvis W contrast IV Normal [facility] 120 Work Phone: Complete Blood Count + Diffe rentialon 04-05-2021 Erythrocyte distribution width (RBC) [Ratio] 15.9 % above high threshold See Below [facility] 120 Work Phone: Comment on above: Reference Range: 11. 5 - 14.5 Hematocrit (Bld) [Volume fraction] 51.8 % See Below [facility] 120 Work Phone: Comment on above: Reference Range: 41. 0 - 52.0 Hemoglobin (Bld) [Mass/Vol] 17.6 g/dL above high threshold See Below [facility] 120 Work Phone: Comment on above: Reference Range: 13. 5 - 17.5 MCHC (RBC) [Mass/Vol] 34.0 g/dL See Below [facility] 120 Work Phone: Comment on above: Reference Range: 32. 0 - 36.0 MCV (RBC) [Entitic vol] 85 fL 80 - 100 [facility] 120 Work Phone: Platelets (Bld) [#/Vol] 222 10*3/uL 150 - 450 [facility] 120 Work Phone: RBC (Bld) [#/Vol] 6.09 {x10E12/L} above high threshold See Below [facility] 120 Work Phone: Comment on above: Reference Range: 4.5 0 - 5.90 WBC (Bld) [#/Vol] 10.4 10*3/uL 4.4 - 11.3 MP-Un iv [facility] 120 Work Phone: Complete Blood Count + Differential SEE MANUAL DIFF [facility] Work Phone: Complete Blood Count + Differential 0.1 {/100_WBC} [facility] 120 Work Phone: Covid 19 Resultson 2 SARS-CoV-2 (COVID-19) RNA ROBERTA+probe Ql (Unsp spec) POSITIVE COVID-19 Test Coronaviruses are common world-wide and are the cause of many common colds. SARS-COV2 is a new coronavirus that began circulating worldwide in 2019 so we are calling it COVID-19. It has been estimated that four out of five patients with COVID-19 will recover at home without the need for medical attention. Symptoms of COVID-19 may include cough, fever, shortness of breath, loss of taste or smell and other flu-like symptoms including chills, sore muscles, sore throat, and headache. Severe illness is more common in older people and people with other health problems such as high blood pressure, obesity, and immune system problems. If the test is positive, you have COVID-19. You will be contacted by the ordering physicians office and instructed to remain on home isolation, in accordance with CDC guidelines. You may also be contacted by the [facility] to see if any of your close contacts may have been exposed to the virus and need to quarantine. If the test is negative, you likely do not have COVID-19 at this time, but you still may have a different illness that can spread to other people (like Influenza, or the Flu) and could still be at risk for getting COVID-19. We recommend that you stay away from other people to limit the spread of illness until your symptoms are improving and you are fever-free for 24 hours without the use of fever lowering medications such as acetaminophen or ibuprofen. No test is 100% accurate so if you are still concerned you may have COVID-19, talk to your doctor about the need to continue to stay away from others. Medicines Unless your provider told you not to use the following: Acetaminophen (Tylenol and others) is generally safe. Anti-inflammatory medications, such as Ibuprofen (Advil or Motrin) or Naproxen (Aleve) can also be used. Fxrx-iqq-ynfiztn cough and cold medicines can be used according to the instructions on the package. Some dnof-uzh-ikatxop medicines also contain acetaminophen. Make sure you are not taking more than your recommended dose. For those not hospitalized, there is no specific treatment available for this illness. Antibiotics do not treat Coronaviruses. Follow-Up Follow up with your doctor by scheduling a virtual visit or consider follow-up at one of our urgent care fever clinics. If you are having difficulty breathing, or are very weak and having difficulty standing, this is a medical emergency. Call 911 or have someone take you to the nearest emergency room immediately. If possible, wear a facemask. Additional guidance from the CDC for patients who tested POSITIVE for COVID-19 How to isolate: Isolate yourself in a specific room at home and limit your contact with others. Use a separate bathroom from other members of the household, when possible. Leave home only to get essential medical care. Do not go to work, school or public areas. Avoid using public transportation, ride-sharing, or taxis. Restrict contact with pets and other animals. If you must care for your pet or be around animals while you are sick, wash your hands before and after your interaction and wear a facemask. Make sure that shared spaces in the home have good airflow, such as by an air conditioner or an opened window, weather permitting. Personal Hygiene Procedures: Wear a face mask when in the same room as other people or pets. If a face mask interferes with your breathing, others should wear a mask when sharing space with you. Frequent hand-washing: wash your hands with soap and water for at least 20 seconds. If soap and water are not available, use alcohol-based hand nuclear equipment research engineer. Avoid touching your eyes, nose, and mouth with unwashed hands. Household Hygiene Procedures: Avoid sharing personal household items such as dishes, glassware, cups, eating utensils, towels or bedding with other people or pets in your home. After use, these items should be washed with soap and hot water. Disinfect all high-touch surfaces every day with antibacterial cleaning solutions such as Lysol wipes, bleach, cleansers, etc. High-touch surfaces include tabletops, doorknobs, bathroom fixtures, toilets, phones, keyboards, tablets and bedside tables. Immediately clean any surfaces that may have blood, poop or body fluids on them, using antibacterial cleaning solutions such as Lysol wipes, bleach, cleansers, etc. If clothing or bedding come into contact with blood, poop or body fluids, they should be washed immediately. Follow the directions on the laundry detergent and clothing labels but hot water is recommended when possible. Stopping home isolation precautions: If possible, consult your doctor before stopping home isolation precautions. According to the CDC, you can discontinue home isolation precautions when you have met both of these criteria: Your fever and respiratory symptoms have been gone for 24 micah (more content not included)... Normal [facility] D-DIMER, VTE EXCLUSIONon D-DIMER, VTE EXCLUSION 1176 ng/mL FEU Abnormal < or = 500 [facility] Comment on above: Result Comment: The VTE Exclusion D-Dimer assay is reported in ng/mL Fibrinogen Equivalent Units (FEU). Per manufacturers instructions for use, a value of less than 500 ng/mL (FEU) may help to exclude DVT or PE in outpatients when the assay is used with a clinical pretest probability assessment. (AEMR must utilize and document eCalc Wells Score Deep Vein Thrombosis Risk for DVT exclusion only; Emergency Department should utilize Guidelines for Emergency Department Use of the VTE Exclusion D-Dimer and Clinical Pretest probability assessment model for DVT or PE exclusion.) Performed By: #### D IMEX ####[facility] [place] [id number] Discharge Planning [id number] 0 04-05-2021 Discharge Planning Note2 Discharge Planning: Needs Prior to Discharge (ex. 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 Address, telephone, and primary contact confirmed. patient denies problems obtaining/affording medications, takes as prescribed, understands reasons for use and possible side effects. Pt here for GI bleed, awaiting GI consult. Pt lives at home with , Independent in all ADL's and IADL's, drives no history of falls. Has a list of assistive devices that he does not use as they were for his past surgery. [facility] here per nursing is 24. Plan to d/c home with no other anticipated needs. CT will follow for changes Paloma Timmons RN- TCC 04/07/2021 0930 Care Transitions - Social Work: Pt reviewed in care rounds mtg. Pt appropriate for d/c home with Pt's today. IMM reviewed by TOMMY/Paloma within past 48 hours from d/c, so no need to review again this morning. No further CT needs foreseen. CT available upon request. ORLIN Campa Assessment: Discharge Planning Assessment [id number] Discharge Planning Assessment Completed byPaloma Timmons RN- TCC Primary Contact Name and NumberWife Christa Prior Level of FunctioningIndependent in all ADL's and IADL's, drives Lives Withspouse(1) Living Arrangementshouse(1) Stated Reason for Admissionwife made me(1) [facility] Recent Falls/ Injury/ Need Assist with Ambulationdenies Equipment Currently Used at [facility] not use any devices.; walker; shower chair; grab bar; cane, quad/straight DME Supplier Name/NumberNone Home Care Agency/Support ServicesNone Diabetic/Supplies NeededNone Resource/Environmental Concernsnone(1) [facility] Services Anticipated at Transitionnone(1) Readmission Within the Last 30 Daysno previous admission in last 30 days PCP Last Date Seensees 2x/yr and oncology Q1 year Anticipated Changes Related to Illnessnone Equipment Needed After Dischargenone Anticipated Discharge Facility/Level of Care NeedsHome Social Determinants of Health IdentifiedNone Special ConsiderationsNone Transportation Home Who/Howwife Medication Adherence/Afford/Obtai nyes O2 LPMNone Discharge Documentation: Code StatusCode Status order at time of discharge: Full Code [place] DNR Form Sent with Patient and/or Familyn/a Electronic Signatures: Omer Saha (ORLIN) (Signed 07-Apr-2021 09:30) Authored: Discharge Planning, Discharge Documentation Paloma Timmons) (Signed 06-Apr-2021 10:59) Authored: Discharge Planning, Assessment Gonsalo Mccann (RN) (Signed 05-Apr-2021 15:18) Authored: Discharge Planning, Assessment, Discharge Documentation Last Updated: 07-Apr-2021 09:30 by Omer Saha (ORLIN) References: 1. Data Referenced From Patient Profile - Adult v2 05-Apr-2021 15:01 Normal [facility] FERRITINon 04-05-2021 FERRITIN 58 ug/L Normal 20 - 300 [facility] Comment on above: Performed By: #### F ERRI #### [address] [address] FIBRINOGENon 04-05-2021 FIBRINOGEN 373 mg/dL Normal 200 - 400 [facility] Comment on above: Performed By: #### F IB ####[address] [address] Ferritin, Serumon 04-05-2021 Ferritin [Mass/Vol] 58 ug/L 20 - 300 MP-Un iv [facility] 120 Work Phone: Fibrinogen Assayon 2 Fibrinogen Assay 373 mg/dL 200 - 400 MP-Univ [facility] 120 Work Phone: HGB + HCTon 04-05-2021 Hematocrit (Bld) [Volume fraction] 48.6 % Normal 41.0 - 52.0 [facility] Comment on above: Performed By: #### H H ####[address] [address] Hemoglobin (Bld) [Mass/Vol] 16.4 g/dL Normal 13.5 - 17.5 [facility] Comment on above: Performed By: #### H H ####[address] [address] INFLUENZA A/B, COVID 2019 PC R,SYMPTOMATICon 04-05-2021 INFLUENZA A, PCR Not detected Normal Not Detected [facility] Comment on above: Result Comment: Resp iratory virus testing is performed routinely by PCR for Influenza A/B and RSV. Not Detected results do not preclude Influenza A/B or RSV infections since the adequacy of sample collection or low viral burden may impact the clinical sensitivity of this test method. Performed By: #### C BCDF #### [place] [address] INFLUENZA B, PCR Not detected Normal Not Detected [facility] Comment on above: Result Comment: Resp iratory virus testing is performed routinely by PCR for Influenza A/B and RSV. Not Detected results do not preclude Influenza A/B or RSV infections since the adequacy of sample collection or low viral burden may impact the clinical sensitivity of this test method. Performed By: #### C BCDF #### [place] [address] SARS-CoV-2 (COVID-19) RNA ROBERTA+probe Ql (Unsp spec) Detected Abnormal Not Detected [facility] Comment on above: Result Comment: . This test has received FDA Emergency Use Authorization (EUA) and has been verified by [facility]. This test is only authorized for the duration of time that circumstances exist to justify the authorization of the emergency use of in vitro diagnostic tests for the detection of SARS-CoV-2 virus and/or diagnosis of COVID-19 infection under section 564(b)(1) of the Act, 21 U.S.C. 360bbb-3(b)(1), unless the authorization is terminated or revoked sooner. [facility] is certified under CLIA-88 as qualified to perform high complexity testing. Testing is performed in the [facility] laboratory located at [address] [place] [address]. SARS-CoV-2/Flu/RSV Multiplex Test: Fact sheet for providers: https://www.fda.gov/media/079437/download Fact sheet for patients: https://www.fda.gov/media/721036/download Performed By: #### C BCDF #### [place] [address] Lab Specimen Source Nasal, Nasopharyngeal [facility] Comment on above: Performed By: #### C BCDF #### [place] [address] DATE OF SYMPTOM ONSET [[id number]]? [id number] [facility] Comment on above: Performed By: #### C BCDF #### [place] [address] Date and time of symptom onset [id number] [address] [address] Work Phone: INFLUENZA A/B, COVID 2019 PCR,SYMPTOMATIC Detected Abnormal See Below [place] [address] Work Phone: Comment on above: Reference Range: Not Detected.This test has received FDA Emergency Use Authorization (EUA) and has been verified by [facility]. This test is only authorized for the duration of time that circumstances exist to justify the authorization of the emergency use of in vitro diagnostic tests for the detection of SARS-CoV-2 virus and/or diagnosis of COVID-19 infection under section 564(b)(1) of the Act, 21 U.S.C. 360bbb-3(b)(1), unless the authorization is terminated or revoked sooner. [facility] is certified under CLIA-88 as qualified to perform high complexity testing. Testing is performed in the [facility] laboratory located at [address] [place] [address].SARS-CoV-2/Flu/RSV Multiplex Test: Fact sheet for providers: https://www.fda.gov/media/279352/downloadFact sheet for patients: https://www.fda.gov/media/027316/download INFLUENZA A/B, COVID 2018 PCR,SYMPTOMATIC Not detected See Below [place] [address] Work Phone: Comment on above: Reference Range: Not Detected Respiratory virus testing is performed routinely by PCR for Influenza A/B and RSV. Not Detected results do not preclude Influenza A/B or RSV infections since the adequacy of sample collection or low viral burden may impact the clinical sensitivity of this test method. SOURCE: Nasal, Nasop haryngealReference Range: Not Detected Respiratory virus testing is performed routinely by PCR for Influenza A/B and RSV. Not Detected results do not preclude Influenza A/B or RSV infections since the adequacy of sample collection or low viral burden may impact the clinical sensitivity of this test method. LACTATEon 04-05-2021 LACTATE Canceled Normal [facility] Comment on above: Order Comment: TEST LACTATE WAS CANCELLED, 04/05/2021 15:28 Dup order cancel per DELMER Dials. Result Comment: Katharine puncture immediately after or during the administration of Metamizole may lead to falsely low results. Testing should be performed immediately prior to Metamizole dosing. Performed By: #### L ACT ####[address] [address] Lactate [Moles/Vol] 0.6 mmol/L Normal 0.4 - 2.0 [facility] Comment on above: Result Comment: Katharine puncture immediately after or during the administration of Metamizole may lead to falsely low results. Testing should be performed immediately prior to Metamizole dosing. Performed By: #### L ACT ####[address] [address] LIPASEon 04-05-2021 Lipase [Catalytic activity/Vol] 3 U/L Low 9 - 82 [facility] Comment on above: Result Comment: Katharine puncture immediately after or during the administration of Metamizole may lead to falsely low results. Testing should be performed immediately prior to Metamizole dosing. Y-refgem-i-benzoquinone imine (metabolite of Acetaminophen) will generate erroneously low results in samples for patients that have taken toxic doses of acetaminophen. Performed By: #### C BCDF #### [address] [address] Laboratory - Chemistry and C hemistry - challengeon 04-05-2021 Procalcitonin [Mass/Vol] 0.49 ng/mL Abnormal <=0.07 [facility] 120 Work Phone: Comment on above: Procalcitonin (PCT) results measured serially can aid in decision-making for antibiotic discontinuation in patients with suspected or confirmed sepsis in conjunction with additional clinical information. Antibiotic discontinuation may be considered with a change in PCT of >80% from the peak result or when PCT falls below 0.50 ng/mL. .Procalcitonin results should not be used in isolation but should be interpreted in conjunction with additional clinical and laboratory findings. Procalcitonin results should not beused to guide the initiation of antibiotic therapy. .Falsely low PCT values in the presence of bacterial infection may occur in early infection, with atypical pathogens, localized infections, and subacute infectious endocarditis. .Falsely elevated results outside of severe bacterial infection/sepsis may be seen in patients with renal failure or insufficiency, severe trauma or sheffield, recent major abdominal/cardiac surgery, acute multi-organ failure, rarely in patients with medullary thyroid carcinoma and rare neuroendocrine tumors, and non-specific interfering antibodies (heterophile antibodies, rheumatoid factor, human anti-mouse antibodies (HAMA), etc). .Performance of the PCT test in pediatric patients (<18yo), women, immunocompromised patients, and patients onimmunomodulatory medications has not been evaluated. Albumin BCP dye [Mass/Vol] 4.1 g/dL 3.4 - 5.0 [place] [address] Work Phone: ALP [Catalytic activity/Vol] 123 U/L 33 - 136 [place] [address] Work Phone: ALT With P-5'-P [Catalytic activity/Vol] 22 U/L 10 - 52 -[place] [address] Work Phone: Comment on above: Patients treated wit h Sulfasalazine may generate falsely decreased results for ALT. Anion gap [Moles/Vol] 11 mmol/L 10 - 20 - [place] [address] Work Phone: AST With P-5'-P [Catalytic activity/Vol] 21 U/L 9 - 39 -[place] [address] Work Phone: Bilirubin [Mass/Vol] 0.8 mg/dL 0.0 - 1.2 MP-U [place] [address] Work Phone: Calcium [Mass/Vol] 9.4 mg/dL 8.6 - 10.3 MP-Uni v [facility] 120 Work Phone: Chloride [Moles/Vol] 101 mmol/L 98 - 107 MP-U niv [facility] 120 Work Phone: CO2 [Moles/Vol] 33 mmol/L above high threshold 21 - 32 [place] [address] Work Phone: Creatinine [Mass/Vol] 0.97 mg/dL See Below [facility] 120 Work Phone: Comment on above: Reference Range: 0.5 0 - 1.30 Glucose [Mass/Vol] 105 mg/dL above high threshold 74 - 99 [facility] 120 Work Phone: Potassium [Moles/Vol] 4.0 mmol/L 3.5 - 5.3 [facility] 120 Work Phone: Protein [Mass/Vol] 7.7 g/dL 6.4 - 8.2 [facility] 120 Work Phone: Sodium [Moles/Vol] 141 mmol/L 136 - 145 [facility] 120 Work Phone: Urea nitrogen [Mass/Vol] 23 mg/dL 6 - 23 [place] [address] Work Phone: Laboratory - Coagulationon 0 - INR Coag (PPP) [Relative time] 1.2 {INR} above high threshold 0.9 - 1.1 [place] [address] Work Phone: PT Coag (PPP) [Time] 13.6 s above high threshold 9.8 - 13.4 [place] [address] Work Phone: Comment on above: Note new reference chuyita soto as of 01/16/2021 at 10:00am. Laboratory - Hematology and Cell countson 04-05-2021 Hematocrit (Bld) [Volume fraction] 48.6 % See Below [facility] 120 Work Phone: Comment on above: Reference Range: 41. 0 - 52.0 Hemoglobin (Bld) [Mass/Vol] 16.4 g/dL See Below [facility] Work Phone: Comment on above: Reference Range: 13. 5 - 17.5 Basophils/100 WBC (Bld) 1.0 % 0.0 - 2.0 [place] [address] Work Phone: Lymphocytes/100 WBC (Bld) 7.0 % See Below [place] [address] Work Phone: Comment on above: Reference Range: 13. 0 - 44.0 Monocytes/100 WBC (Bld) 12.0 % 2.0 - 10.0 [place] [address] Work Phone: Lactate, Levelon 04-05-2021 Lactate [Moles/Vol] 0.6 mmol/L 0.4 - 2.0 - iv [place] [address] Work Phone: Comment on above: Venipuncture immedia tely after or during the administration of Metamizole may lead to falsely low results. Testing should be performed immediately prior to Metamizole dosing. Lipase, Serumon 04-05-2021 Lipase [Catalytic activity/Vol] 3 U/L below low threshold 9 - 82 [place] [address] Work Phone: Comment on above: Venipuncture immedia tely after or during the administration of Metamizole may lead to falsely low results. Testing should be performed immediately prior to Metamizole dosing. L-amtmej-b-benzoquinone imine (metabolite of Acetaminophen) will generate erroneously low results in samples for patients that have taken toxic doses of acetaminophen. MANUAL DIFFERENTIALon 2021 % BASOPHIL 1.0 % Normal 0.0 - 2.0 [facility] Comment on above: Performed By: #### C BCDF #### [address] [address] % EOSINOPHIL 1.0 % Normal 0.0 - 6.0 [facility] Comment on above: Performed By: #### C BCDF #### [address] [address] % LYMPH-ATYPICAL 1.0 % Normal 0.0 - 2.0 [facility] Comment on above: Performed By: #### C BCDF #### [address] [address] % LYMPHOCYTE 7.0 % Normal 13.0 - 44.0 [facility] Comment on above: Performed By: #### C BCDF #### [address] [address] % MONOCYTE 12.0 % Normal 2.0 - 10.0 [facility] Comment on above: Performed By: #### C BCDF #### [address] [address] % SEG NEUTROPHIL 78.0 % Normal 40.0 - 80.0 [facility] Comment on above: Result Comment: Perc ent differential counts (%) should be interpreted in the context of the absolute cell counts (cells/L). Performed By: #### C BCDF #### [address] [address] ANC 8.11 x10E9/L High 1.20 - 7.70 [facility] Comment on above: Performed By: #### C BCDF #### [address] [address] BASOPHIL 0.10 x10E9/L Normal 0.00 - 0.10 [facility] Comment on above: Performed By: #### C BCDF #### [address] [address] EOSINOPHIL 0.10 x10E9/L Normal 0.00 - 0.70 [facility] Comment on above: Performed By: #### C BCDF #### [address] [address] LYMPH-ATYPICAL 0.10 x10E9/L Normal 0.00 - 0.50 [facility] Comment on above: Performed By: #### C BCDF #### [address] [address] LYMPHOCYTE 0.73 x10E9/L Low 1.20 - 4.80 [facility] Comment on above: Performed By: #### C BCDF #### [address] [address] MONOCYTE 1.25 x10E9/L High 0.10 - 1.00 [facility] Comment on above: Performed By: #### C BCDF #### [place] [id number] [place] [address] SEG NEUTROPHIL 8.11 x10E9/L High 1.20 - 7.00 [facility] Comment on above: Performed By: #### C BCDF #### [address] [address] No Panel Informationon 04-05 1176 {ng/mL_FEU} Abnormal < or = 500 -[facility] 120 Work Phone: Comment on above: The VTE Exclusion D- Dimer assay is reported in ng/mL Fibrinogen Equivalent Units (FEU). Per manufacturers instructions for use, a value of less than 500 ng/mL (FEU) may help to exclude DVT or PE in outpatients when the assay is used with a clinical pretest probability assessment. (AEMR must utilize and document eCalc Wells Score Deep Vein Thrombosis Risk for DVT exclusion only; Emergency Department should utilize Guidelines for Emergency Department Use of the VTE Exclusion D-Dimer and Clinical Pretest probability assessment model for DVT or PE exclusion.) FEW -[facility] 120 Work Phone: SEE BELOW [facility] 120 Work Phone: 0.10 {x10E9/L} See Below [facility] 120 Work Phone: Comment on above: Reference Range: 0.0 0 - 0.50 Reference Range: 0.0 0 - 0.10 Reference Range: 0.0 0 - 0.70 1.25 {x10E9/L} above high threshold See Below [facility] 120 Work Phone: Comment on above: Reference Range: 0.1 0 - 1.00 0.73 {x10E9/L} below low threshold See Below [facility] 120 Work Phone: Comment on above: Reference Range: 1.2 0 - 4.80 8.11 {x10E9/L} above high threshold See Below [facility] 120 Work Phone: Comment on above: Reference Range: 1.2 0 - 7.00 Reference Range: 1.2 0 - 7.70 1.0 % 0.0 - 6.0 -[facility] 120 Work Phone: 78.0 % See Below -[facility] 120 Work Phone: Comment on above: Reference Range: 40. 0 - 80.0 Percent differential counts (%) should be interpreted in the context of the absolute cell counts (cells/L). 84 {mL/min/1.73m2} >90 -[email or web address] 120 Work Phone: Comment on above: CALCULATIONS OF MARV MATED GFR ARE PERFORMED USING THE 2020 CKD-EPI STUDY REFIT EQUATION WITHOUT THE RACE VARIABLE FOR THE IDMS-TRACEABLE CREATININE METHODS.https://jasn.asnjournals.org/content// N.7360468377 Order Reconciliationon 04-05 Order Reconciliation Page 1 Admission Reconciliation Document Reconciliation Type: ED to Observation requested on behalf of Delmer Cano (Advanced Practice Nurse) done by Delmer Cano ([employer] INSTRUCTOR-ROLLER ENGRAVER) ED to Observation - Reconciliation: 05-Apr-2021 16:55 by: Delmer Cano ([employer] INSTRUCTOR-ROLLER ENGRAVER) ED to Observation - AutoLinked: 05-Apr-2021 16:55 by: Delmer Cano ([employer] INSTRUCTOR-ROLLER ENGRAVER) Home MedicationsEnteredLast Dose TakenReconciled with current Order Reconciliation Comment/ Additional Information Excedrin oral tablet 2 tab(s) orally every 6 hours, As [id number]-Apr-2021 AM Reviewed and Held famotidine 40 mg oral tablet 1 tab(s) orally once a [id number] AM Reviewed and Held Multiple Vitamins oral tablet 1 tab(s) orally once a [id number]-Apr-2021 AM Multivitamin with Minerals TabletDOSE = 1 tablet(s) Oral Daily Multiple Vitamins oral tablet continued as the inpatient order Multivitamin with Minerals omeprazole 20 mg oral delayed release tablet 1 tab(s) orally once a day (at bedtime)Mar-2021 Reviewed and Held rosuvastatin 5 mg oral tablet 1 tab(s) orally once a day (at bedtime) Atorvastatin Tablet (LIPITOR)DOSE = 20 mg Oral At BedtimeNotes from Pharmacy: Substitution for Rosuvastatin (CRESTOR) 5mg Oral At Bedtimerosuvastatin 5 mg oral tablet continued as the inpatient order Atorvastatin testosterone topical 2% ointment Apply topically to affected area once a day AM Reviewed and Held traMADol 50 mg oral tablet 1 tab(s) orally once a day (at bedtime)05-Apr-2021 16 PM Reviewed and Held traMADol 50 mg oral tablet 2 tab(s) orally once a day (in the morning) [id number] AM traMADol Tablet (ULTRAM)DOSE = 100 mg Oral Every 6 Hours, PRN Pain - Mod (4-6)traMADol 50 mg oral tablet continued as the inpatient order traMADol valsartan 160 mg oral capsule 1 cap(s) orally once a day (in the morning) [id number] AM Valsartan Tablet (DIOVAN)DOSE = 160 mg Oral Daily valsartan 160 mg oral capsule continued as the inpatient order Valsartan Additional Current Orders Acetaminophen Tablet (TYLENOL)DOSE = 650 mg Oral Every 4 Hours, PRN Pain - Mild (1-3) Acetaminophen Tablet (TYLENOL)DOSE = 650 mg Oral Every 4 Hours, PRN Temp Greater Than or Equal to 38.0 C levoFLOXacin (LEVAQUIN) 500 mg IVPB/ Premixed Soln 100 mL Every 24 HoursRecommended Infusion Time: 60 minute(s) metroNIDAZOLE (FLAGYL) 500 mg IVPB/ Premixed Soln 100 mL Every 8 HoursRecommended Infusion Time: 60 minute(s) Ondansetron Injectable (ZOFRAN)DOSE = 4 mg IntraVenous Push Every 4 Hours, PRN Nausea and/or Vomiting Pantoprazole Injectable (PROTONIX)DOSE = 40 mg IntraVenous Push Every 12 Hours Sodium Chloride 0.9% Infusion IV Bag Volume = 1,000 mL Run at: 50 mL/hr IntraVenous Stop After 1 Doses Sore Throat Lozenge LozengeDOSE = 1 lozenge(s) Oral Every 2 Hours, PRN Sore ThroatCa lozenge(s)/DOSE x 1 = 1 lozenge(s)/Dose (Daily Total is 12 lozenge(s)) Normal [facility] PT/INRon 04-05-2021 PT Coag (PPP) [Time] 13.6 s High 9.8 - 13.4 [facility] Comment on above: Result Comment: Note new reference range as of 01/16/2021 at 10:00am. Performed By: #### P TINR #### [address] [address] PT, INR 1.2 High 0.9 - 1.1 [facility] Comment on above: Performed By: #### P TINR #### [address] [address] Patient Profile - Adult v2on 04-05-2021 Patient Profile - Adult v2 Profile: Initial Info: How to be Addressedbill Spoken Language PreferredEnglish Stated Reason for Admissionwife made me Wants Family/Rep Notified of Admissionn/a; family present Notify PCPdo not notify PCP Richy Emerson Informed of Patient Visiting Rightsyes Arrived Fromemergency department Patient Belongingsremains with patient Patient Belongings Remaining with Patientphone, hearing aids & case Medications Brought to Hospitalno General Health: Blood Avoidance/Restrictions none Weight in kg93.6 kilogram(s) Weight in byh701.3 pound(s) Weight Methodactual (measured) Scale Typebed Height in cm185.4 centimeter(s) Height in feet6 feet Height in inches1 inch(es) Height Methodstated BMI (kg/m2)27.23 square meter RSP Based Care: How would you like to participate in your careKeep me and the informed What is the number one concern for you during this hospitalizationrectal bleed What is the most important thing we can do to support you during this hospitalizationnothing Is there anything we need to know to best care for youtongue cancer Substance: Smoking Statusformer smoker Health Mgmt: Symptoms/Conditions Managed at Homenone Relationship/Environ: Resource/Environmental Concernsnone Primary Source of Support/Comfortspouse Lives Withspouse Living Arrangementshouse Services Anticipated at Transitionnone Anticipated Transition Tohome Significant IndicatorsComplete Information Review: Allergies, Home Meds and Significant Events have been Reviewed and Verified with Patient/Familyyes ALLERGY, INTOLERANCE, ADVERSE EVENT: Allergies: No Known Allergies: Active Electronic Signatures: Gonsalo Mccann (DANIEL) (Signed 05-Apr-2021 15:08) Authored: Initial Info, General Health, RSP Based Care, Substance, Health Mgmt, Relationship/Environ, Additional Information Last Updated: 05-Apr-2021 15:08 by Gonsalo Mccann (DANIEL) [facility] Provider Note - ED v3on 03-20 Provider Note - ED v3 Provider Note: Chart Review: ED NOTES ED NOTES: 70-year-old male presents with hematochezia and rectal bleeding. Patient states that symptoms started yesterday. Patient's had 3 episodes. 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 Patient also takes Excedrin for a headache. States he took some yesterday. Patient denies any abdominal pain. Patient denies any history of hemorrhoids. Patient did have a period here where his oxygen saturation level dropped to 85% on room air. Patient is fully vaccinated. Patient is in no acute distress when I examined him. Patient has had no symptoms while here in the department. I did do a COVID test on the patient and he is Covid positive. I did talk to him about that. Patient was somewhat upset that she is fully vaccinated with a booster. Patient will be admitted for further diagnostic studies and treatment. HISTORY OF PRESENTING ILLNESS AMY is a 70 year old Male and was seen by me at 05-Apr-2021 09:35 for a chief complaint of bloody stools (Patient to ED reference bloody stools. Patient had an episode of stool with dark red clots overnight and again thia am. Patient with abdominal pain prior to episodes. Negative any pain between.)(1). The historian is the patient. Triage Information: Most recent Vital Sign Value Date Temp (F): 98.6 04-05-2021 09:13 Temp (C): 37 04-05-2021 09:13 Heart Rate (beats/min): 73 04-05-2021 09:13 Respirations (breaths/min): 18 04-05-2021 09:13 SpO2 (%): 92 04-05-2021 09:13 BP Systolic (mm Hg): 112 04-05-2021 09:13 BP Diastolic (mm Hg): 83 04-05-2021 09:13 PAST MEDICAL HISTORY ALLERGIES/INTOLERANCES : No Known Allergies HEALTH HISTORY: No documented data. OUTPATIENT MEDICATIONS: Home Medications Review Status for Reconciliation: Complete Med Status: Patient Currently Takes Medications Drug Name: famotidine 40 mg oral tablet Instructions: 1 tab(s) orally once a day Drug Name: omeprazole 20 mg oral delayed release tablet Instructions: 1 tab(s) orally once a day (at bedtime) Drug Name: rosuvastatin 5 mg oral tablet Instructions: 1 tab(s) orally once a day (at bedtime) Drug Name: testosterone topical 2% ointment Instructions: Apply topically to affected area once a day Drug Name: traMADol 50 mg oral tablet Instructions: 2 tab(s) orally once a day (in the morning) Drug Name: traMADol 50 mg oral tablet Instructions: 1 tab(s) orally once a day (at bedtime) Drug Name: valsartan 160 mg oral capsule Instructions: 1 cap(s) orally once a day (in the morning) Drug Name: Multiple Vitamins oral tablet Instructions: 1 tab(s) orally once a day Drug Name: Excedrin oral tablet Instructions: 2 tab(s) orally every 6 hours, As Needed SIGNIFICANT EVENTS: No documented data. REVIEW OF SYSTEMS GASTROINTESTINAL: hematochezia NEUROLOGICAL: POSITIVE for: headache; All other systems reviewed and are negative PHYSICAL EXAM CONSTITUTIONAL: Well appearing, well nourished, awake, alert, oriented to person, place, time/situation and in no apparent distress. HENMT: Airway patent, ears with clear tympanic membranes bilaterally. Nasal mucosa clear. Mouth with normal mucosa. Throat has no vesicles, no oropharyngeal exudates and uvula is midline. Face with no lymph node enlargement. EYES: Clear bilaterally, pupils equal, round and reactive to light. CARDIOVASCULAR: Normal rate, regular rhythm. Heart sounds S1, S2. No murmurs, rubs or gallops. PMI non-displaced. RESPIRATORY: Breath sounds clear and equal bilaterally. GASTROINTESTINAL: Abdomen soft, non-distended, no rebound, no guarding. Bowel sounds normal in all 4 quadrants. GENITOURINARY: No discharge, no lesions. MUSCULOSKELETAL: Spine appears normal, range of motion is not limited, no muscle or joint tenderness. NEUROLOGICAL: Alert and oriented, no focal deficits, no motor or sensory deficits. SKIN: Skin normal color for race, warm, dry and intact. No evidence of trauma. PSYCHIATRIC: Alert and oriented to person, place, time/situation. normal mood and affect. No apparent risk to self or others. HEME/LYMPH: No adenopathy or splenomegaly. No cervical, supraclavicular or inguinal lymphadenopathy. CRITICAL CARE RESULTS: Recent Lab Results: I have reviewed these laboratory results: Influenza A/B,Covid 2019 PCR,Symptomatic 05-Apr-2021 12:13:00 ResultValue Fluid Source Nasal, Nasopharyngeal Influenza A PCR NOT DETECTED Reference Range: Not Detected Respiratory virus testing is performed routinely by PCR for Influenza A/B and RSV. Not Detected results do not preclude Influenza A/B or RSV infections since the adequacy of sample collection or lo Influenza B PCR NOT DETECTED Reference Range: Not Detected Respiratory virus testing is performed routinely by PCR for Influenza A/B and RSV. Not Detected results do not preclude Influenza A/B or RSV infections since the adequacy of (more content not included)... Normal [facility] RED CELL MORPHOLOGYon 2021 OVALOCYTES FEW Normal [facility] Comment on above: Performed By: #### M ORP2 #### [place] [address] RBC morphology finding Nom (Bld) SEE BELOW [facility] Comment on above: Performed By: #### M ORP2 #### [address] [address] Radiologyon 04-05-2021 XR Chest Single view Normal [facility] 120 Work Phone: Triage - EDon 04-05-2021 Triage - ED Quick Triage: The patient and/or guardian verbally acknowledges placement for services into the following (when Urgent Care Service hours are operating):emergency department Chart Review: ARRIVAL INFORMATION Mode of Arrival: private vehicle CHIEF COMPLAINT AMY SUN is a Male patient with a chief complaint of bloody stools (Patient to ED reference bloody stools. Patient had an episode of stool with dark red clots overnight and again thia am. Patient with abdominal pain prior to episodes. Negative any pain between.). Onset of the Complaint: 04-Apr-2021 02:00 Triage Date/Time: 05-Apr-2021 09:13 CHASE: 3 Pain Rating (0-10): 0 = None Vital Signs: Temperature: 98.6F ( 37.0C) taken temporal Blood Pressure: 112/83 Mean: Heart Rate: 73 Respiratory Rate: 18 Pulse Oximetry: 92% on room air, no respiratory support. Height: 6 feet 1.00 inches. 185.4 CM Weight: 222.0 pounds. Calculated 100.7 kg. (stated) Calculated BMI (kg/m2): 29.296 Calculated BSA (m2) 2.28 Melly Coma Scale: Best Eye Response: (E4) spontaneous Best Motor Response: (M6) obeys commands Best Verbal Response: (V5) oriented Melly Score: 15 [place] Assessment Qualifiers: patient not sedated/intubated Cough lasting greater than 3 weeks: no Patient immunocompromised related to: cancer Allergies: no Patient has homicidal thoughts: no Symptoms Are Negative For: anorexia, constipation, diaphoresis, diarrhea, distention, fever, nausea, rectal blood and vomiting. Risk Screens Suicide Risk Screen In the Past Month: Have you wished you were or wished you could go to sleep and not wake up no In the Past Month: Have you had any actual thoughts of killing yourself no In Your Lifetime: Have you ever done anything, started to do anything, or prepared to do anything to end your life no [place] Fall Scale Screening Has the patient fallen before (or is the patient in the ED as a result of a fall) has not had a fall Does the patient have an impaired gait does not have impaired gait Is the patient cognitively impaired not cognitively impaired Interventions: Neida Fall Interventions: LOW INTERVENTIONS: *patient oriented to surroundings and call system, * patient/family falls education completed and documented, *patients fall status communicated during bedside handoff, *whiteboard updated, *mode of toileting discussed with patient, *bed in low position with brakes locked, *call light in reach, * non-skid footwear TRAVEL HISTORY Travel History Coronavirus Screening: no exposure or symptoms Travel Exposure History: NO travel to International locations in the past 30 days PAIN Pain Scale Used: BREANNA Pain Rating (0-10): 0 = None Past Medical History: Past Medical History Reviewedyes Electronic Signatures: Elina Piña (RN) (Signed 05-Apr-2021 11:03) Authored: Quick Triage, Chart Review, Past Medical History Jethro Roper (EMT-P) (Signed 05-Apr-2021 09:18) Authored: Quick Triage, Risk Screens, Pain, Travel History, Chart Review, Scores Last Updated: 05-Apr-2021 11:03 by Elina Piña (RN) [facility] XR Spine Lumbosacral 2 or 3 Viewson 09-04-2018 XR Spine Lumbosacral 2 or 3 Views Exam Date/Time: 09/03/2018 11:18 EDT Reason for Exam: pain Report STUDY: XR Spine Lumbosacral 2 or 3 Views; 09/03/2018 11:18 am INDICATION: pain. COMPARISON: None. ACCESSION NUMBER(S): [id number] ORDERING CLINICIAN: Bo Bravo FINDINGS: 3 views of the lumbar spine including AP, lateral and lateral cone-down views were obtained. There is no acute fracture identified. The vertebral bodies are well aligned without evidence of subluxation. Mild disc space narrowing and small marginal osteophytes are seen throughout the lumbar spine. Moderate facet degenerative changes are seen throughout the lumbar spine. IMPRESSION: 1. No evidence of acute fracture. 2. Degenerative changes throughout the lumbar spine, as described above. FINAL REPORT Dictated: 09/04/2018 3:03 pm Guido Sebastian MD Signed (Electronic Signature): 09/04/2018 3:03 pm Signed by: Guido Sebastian MD Technologist: [facility] No Panel Information [facility] Vital Signs Date Time Vital Sign Value Performing Clinician Facility 12-18-2024 09:57-0400 Respiratory rate 16 /min Sivakumar Arias DO Work Phone: [facility] 12-18-2024 09:42-0400 Body temperature 97.5 [degF] Shady Geris DO Work Phone: [facility] 12-18-2024 09:42-0400 Diastolic blood pressure 75 mm[Hg] Shady Geris DO Work Phone: [facility] 12-18-2024 09:42-0400 Heart rate 53 /min Shady Geris DO Work Phone: [facility] 12-18-2024 09:42-0400 SaO2% (BldA) [Mass fraction] 97 % Shady Geris DO Work Phone: [facility] 12-18-2024 09:42-0400 Systolic blood pressure 141 mm[Hg] Shady Geris DO Work Phone: [facility] 12-17-2024 07:40-0400 Body height 185.4 cm Shady Geris DO Work Phone: [facility] 12-17-2024 07:40-0400 Body mass index (BMI) [Ratio] 22.45 kg/m2 Shady Geris DO Work Phone: [facility] 12-17-2024 07:40-0400 Body weight 77.2 kg Tady Geris DO Work Phone: [facility] 11-22-2024 08:27-0400 Body temperature 97.11 [degF] Tady Geris DO Work Phone: [facility] 11-22-2024 08:27-0400 Diastolic blood pressure 73 mm[Hg] Shady Geris DO Work Phone: [facility] 11-22-2024 08:27-0400 Heart rate 52 /min Tady Geris DO Work Phone: [facility] 11-22-2024 08:27-0400 SaO2% (BldA) [Mass fraction] 92 % Shady Geris DO Work Phone: [facility] 11-22-2024 08:27-0400 Systolic blood pressure 132 mm[Hg] Shady Geris DO Work Phone: [facility] 11-22-2024 05:00-0400 Body mass index (BMI) [Ratio] 25.86 kg/m2 Sivakumar Geris DO Work Phone: [facility] 11-22-2024 05:00-0400 Body weight 88.9 kg Sivakumar Rodasis DO Work Phone: [facility] 11-22-2024 04:16-0400 Respiratory rate 14 /min Sivakumar Geris DO Work Phone: [facility] 11-18-2024 00:00-0400 Body height 185.4 cm Sivakumar Rodasis DO Work Phone: [facility] 11-17-2024 09:51-0400 Diastolic blood pressure 68 mm[Hg] Kaushik Whitfield MD Work Phone: [facility] 11-17-2024 09:51-0400 Heart rate 60 /min Kaushik Whitfield MD Work Phone: [facility] 11-17-2024 09:51-0400 Respiratory rate 16 /min Kaushik Whitfield MD Work Phone: [facility] 11-17-2024 09:51-0400 SaO2% (BldA) [Mass fraction] 89 % Kaushik Whitfield MD Work Phone: [facility] 11-17-2024 09:51-0400 Systolic blood pressure 102 mm[Hg] Kaushik Whitfield MD Work Phone: [facility] 11-15-2024 12:35-0400 Body mass index (BMI) [Ratio] 24.49 kg/m2 Gavin Shank PROJECT FACILITATOR Work Phone: [facility] 11-15-2024 12:35-0400 Body temperature 98.2 [degF] Gavin Shank PROJECT FACILITATOR Work Phone: [facility] 11-15-2024 12:35-0400 Body weight 84.19 kg Gavin Shank PROJECT FACILITATOR Work Phone: [facility] 11-15-2024 12:35-0400 Diastolic blood pressure 69 mm[Hg] Gavin Shank PROJECT FACILITATOR Work Phone: [facility] 11-15-2024 12:35-0400 Heart rate 54 /min Gavin Shank PROJECT FACILITATOR Work Phone: [facility] 11-15-2024 12:35-0400 Respiratory rate 18 /min Gavin Shank PROJECT FACILITATOR Work Phone: [facility] 11-15-2024 12:35-0400 SaO2% (BldA) [Mass fraction] 90 % Gavin Shank PROJECT FACILITATOR Work Phone: [facility] 11-15-2024 12:35-0400 Systolic blood pressure 120 mm[Hg] Gavin Shank PROJECT FACILITATOR Work Phone: [facility] 11-09-2024 12:28-0400 Body height 185.4 cm Ulices Amber DO Work Phone: [facility] 11-09-2024 12:28-0400 Body mass index (BMI) [Ratio] 24.62 kg/m2 Ulices Amber DO Work Phone: [facility] 11-09-2024 12:28-0400 Body temperature 98.6 [degF] Ulices Amber DO Work Phone: [facility] 11-09-2024 12:28-0400 Body weight 84.64 kg Ulices Amber DO Work Phone: [facility] 11-09-2024 12:28-0400 Diastolic blood pressure 81 mm[Hg] Ulices Amber DO Work Phone: [facility] 11-09-2024 12:28-0400 Heart rate 57 /min Ulices Amber DO Work Phone: [facility] 11-09-2024 12:28-0400 Respiratory rate 16 /min Ulices Amber DO Work Phone: [facility] 11-09-2024 12:28-0400 SaO2% (BldA) [Mass fraction] 90 % Ulices Amber DO Work Phone: [facility] 11-09-2024 12:28-0400 Systolic blood pressure 138 mm[Hg] Ulices Amber DO Work Phone: [facility] 09-29-2024 13:35-0400 Body height 182.9 cm Vasu Jaimes DO Work Phone: [facility] 09-29-2024 13:35-0400 Body mass index (BMI) [Ratio] 25.2 kg/m2 Vasu Thomae DO Work Phone: [facility] 09-29-2024 13:35-0400 Body weight 84.28 kg Vasu Jaimes DO Work Phone: [facility] 09-16-2024 11:53-0400 Body mass index (BMI) [Ratio] 23.74 kg/m2 Omer Adler MD Work Phone: [facility] 09-16-2024 11:53-0400 Body weight 83.92 kg Omer Adler MD Work Phone: [facility] 09-16-2024 11:53-0400 Diastolic blood pressure 84 mm[Hg] Omer Adler MD Work Phone: [facility] 09-16-2024 11:53-0400 Heart rate 57 /min Omer Adler MD Work Phone: [facility] 09-16-2024 11:53-0400 SaO2% (BldA) [Mass fraction] 94 % Omer Adler MD Work Phone: [facility] 09-16-2024 11:53-0400 Systolic blood pressure 136 mm[Hg] Omer Adler MD Work Phone: [facility] 09-14-2024 12:39-0400 Body height 185.4 cm Ulices Amber DO Work Phone: [facility] 09-14-2024 12:39-0400 Body mass index (BMI) [Ratio] 24.46 kg/m2 Ulices Amber DO Work Phone: [facility] 09-14-2024 12:39-0400 Body temperature 97.9 [degF] Ulices Amber DO Work Phone: [facility] 09-14-2024 12:39-0400 Body weight 84.1 kg Ulices Amber DO Work Phone: [facility] 09-14-2024 12:39-0400 Diastolic blood pressure 82 mm[Hg] Ulices Amber DO Work Phone: [facility] 09-14-2024 12:39-0400 Heart rate 59 /min Ulices Amber DO Work Phone: [facility] 09-14-2024 12:39-0400 Respiratory rate 14 /min Ulices Amber DO Work Phone: [facility] 09-14-2024 12:39-0400 SaO2% (BldA) [Mass fraction] 90 % Ulices Amber DO Work Phone: [facility] 09-14-2024 12:39-0400 Systolic blood pressure 124 mm[Hg] Ulices Amber DO Work Phone: [facility] 09-02-2024 13:02-0400 Body height 182.9 cm Vasu Thomae DO Work Phone: [facility] 09-02-2024 13:02-0400 Body mass index (BMI) [Ratio] 24.71 kg/m2 Vasu Thomae DO Work Phone: [facility] 09-02-2024 13:02-0400 Body weight 82.64 kg Vasu Thomae DO Work Phone: [facility] 09-02-2024 13:02-0400 Diastolic blood pressure 91 mm[Hg] Vasu Thomae DO Work Phone: [facility] 09-02-2024 13:02-0400 Heart rate 59 /min Vasu Thomae DO Work Phone: [facility] 09-02-2024 13:02-0400 SaO2% (BldA) [Mass fraction] 90 % Vasu Thomae DO Work Phone: [facility] 09-02-2024 13:02-0400 Systolic blood pressure 150 mm[Hg] Vasu Thomae DO Work Phone: [facility] 08-11-2024 13:52-0400 SaO2% (BldA) [Mass fraction] 93 % Gavin Hammonds PROJECT FACILITATOR Work Phone: [facility] Comment on above: 2L of O2 placed on pt. 08-11-2024 13:14-0400 Diastolic blood pressure 59 mm[Hg] Gavin Hammonds PROJECT FACILITATOR Work Phone: [facility] 08-11-2024 13:14-0400 Heart rate 68 /min Gavin Hammonds PROJECT FACILITATOR Work Phone: [facility] 08-11-2024 13:14-0400 Systolic blood pressure 94 mm[Hg] Gavin Hammonds PROJECT FACILITATOR Work Phone: [facility] 08-11-2024 13:07-0400 Body height 185.4 cm Gavin Hammonds PROJECT FACILITATOR Work Phone: [facility] 08-11-2024 13:07-0400 Body mass index (BMI) [Ratio] 23.48 kg/m2 Gavin Hammonds PROJECT FACILITATOR Work Phone: [facility] 08-11-2024 13:07-0400 Body weight 80.74 kg Gavin Hammonds PROJECT FACILITATOR Work Phone: [facility] 08-11-2024 13:07-0400 Respiratory rate 12 /min Gavin Hammonds PROJECT FACILITATOR Work Phone: [facility] 08-09-2024 11:30-0400 Body mass index (BMI) [Ratio] 23.23 kg/m2 Sushma Brandon Work Phone: [facility] 08-09-2024 11:30-0400 Body temperature 97.7 [degF] Sushma Brandon Work Phone: [facility] 08-09-2024 11:30-0400 Body weight 82.1 kg Sushma Brandon Work Phone: [facility] 08-09-2024 11:30-0400 Diastolic blood pressure 62 mm[Hg] Sushma Brandon Work Phone: [facility] 08-09-2024 11:30-0400 Heart rate 69 /min Sushma Brandon Work Phone: [facility] 08-09-2024 11:30-0400 Respiratory rate 16 /min Sushma Brandon Work Phone: [facility] 08-09-2024 11:30-0400 SaO2% (BldA) [Mass fraction] 89 % Sushma Brandon Work Phone: [facility] 08-09-2024 11:30-0400 Systolic blood pressure 98 mm[Hg] Sushma Brandon Work Phone: [facility] 07-31-2024 11:33-0400 Body temperature 97.9 [degF] Stevenson Foskey DO Work Phone: [facility] 07-31-2024 11:33-0400 Diastolic blood pressure 62 mm[Hg] Stevenson Foskey DO Work Phone: [facility] 07-31-2024 11:33-0400 Heart rate 81 /min Stevenson Foskey DO Work Phone: [facility] 07-31-2024 11:33-0400 Respiratory rate 18 /min Stevenson Foskey DO Work Phone: [facility] 07-31-2024 11:33-0400 SaO2% (BldA) [Mass fraction] 92 % Stevenson Foskey DO Work Phone: [facility] 07-31-2024 11:33-0400 Systolic blood pressure 106 mm[Hg] Stevenson Foskey DO Work Phone: [facility] 07-30-2024 15:12-0400 Body height 182.9 cm Stevenson Foskey DO Work Phone: [facility] 07-30-2024 15:12-0400 Body mass index (BMI) [Ratio] 24.58 kg/m2 Stevenson Foskey DO Work Phone: [facility] 07-30-2024 15:12-0400 Body weight 82.2 kg Stevenson Foskey DO Work Phone: [facility] 07-23-2024 14:43-0400 Body height 182.9 cm Yobani Smalls MD Work Phone: [facility] 07-23-2024 14:43-0400 Body mass index (BMI) [Ratio] 24.25 kg/m2 Yobani Smalls MD Work Phone: [facility] 07-23-2024 14:43-0400 Body weight 81.1 kg Yobani Smalls MD Work Phone: [facility] 07-23-2024 14:43-0400 Diastolic blood pressure 68 mm[Hg] Yobani Smalls MD Work Phone: [facility] 07-23-2024 14:43-0400 Heart rate 62 /min Yobani Smalls MD Work Phone: [facility] 07-23-2024 14:43-0400 Respiratory rate 18 /min Yobani Smalls MD Work Phone: [facility] 07-23-2024 14:43-0400 SaO2% (BldA) [Mass fraction] 96 % Yobani Smalls MD Work Phone: [facility] 07-23-2024 14:43-0400 Systolic blood pressure 132 mm[Hg] Yobani Smalls MD Work Phone: [facility] 07-14-2024 07:46-0400 Body height 185.4 cm Gavin Shank PROJECT FACILITATOR Work Phone: [facility] 07-14-2024 07:46-0400 Body mass index (BMI) [Ratio] 23.83 kg/m2 Gavin Shank PROJECT FACILITATOR Work Phone: [facility] 07-14-2024 07:46-0400 Body temperature 98.01 [degF] Gavin Shank PROJECT FACILITATOR Work Phone: [facility] 07-14-2024 07:46-0400 Body weight 81.92 kg Gavin Shank PROJECT FACILITATOR Work Phone: [facility] 07-14-2024 07:46-0400 Diastolic blood pressure 78 mm[Hg] Gavin Shank PROJECT FACILITATOR Work Phone: [facility] 07-14-2024 07:46-0400 Heart rate 70 /min Gavin Shank PROJECT FACILITATOR Work Phone: [facility] 07-14-2024 07:46-0400 Respiratory rate 18 /min Gavin Shank PROJECT FACILITATOR Work Phone: [facility] 07-14-2024 07:46-0400 SaO2% (BldA) [Mass fraction] 91 % Gavin Shank PROJECT FACILITATOR Work Phone: [facility] 07-14-2024 07:46-0400 Systolic blood pressure 114 mm[Hg] Gavin Shank PROJECT FACILITATOR Work Phone: [facility] 07-06-2024 16:19-0400 Diastolic blood pressure 78 mm[Hg] Sonu Jones MD Work Phone: [employer] [facility] 07-06-2024 16:19-0400 Heart rate 66 /min Sonu Jones MD Work Phone: [facility] 07-06-2024 16:19-0400 Respiratory rate 18 /min Sonu Jones MD Work Phone: [facility] 07-06-2024 16:19-0400 SaO2% (BldA) [Mass fraction] 93 % Sonu Jones MD Work Phone: [employer] [facility] 07-06-2024 16:19-0400 Systolic blood pressure 136 mm[Hg] Sonu Jones MD Work Phone: [employer] [facility] 07-06-2024 12:50-0400 Body temperature 98.2 [degF] Sonu Jones MD Work Phone: [employer] [facility] 07-04-2024 15:10-0400 Body height 185.4 cm Sonu Jones MD Work Phone: [facility] 07-04-2024 15:10-0400 Body mass index (BMI) [Ratio] 24.41 kg/m2 Sonu Jones MD Work Phone: [facility] 07-04-2024 15:10-0400 Body weight 83.92 kg Sonu Jones MD Work Phone: [facility] 06-15-2024 14:52-0400 Body height 185.4 cm Ulices Amber DO Work Phone: [facility] 06-15-2024 14:52-0400 Body mass index (BMI) [Ratio] 24.41 kg/m2 Ulices Amber DO Work Phone: [facility] 06-15-2024 14:52-0400 Body weight 83.92 kg Ulices Amber DO Work Phone: [facility] 06-15-2024 14:52-0400 Diastolic blood pressure 80 mm[Hg] Ulices Amber DO Work Phone: [facility] 06-15-2024 14:52-0400 Heart rate 56 /min Ulices Amber DO Work Phone: [facility] 06-15-2024 14:52-0400 Respiratory rate 14 /min Ulices Amber DO Work Phone: [facility] 06-15-2024 14:52-0400 SaO2% (BldA) [Mass fraction] 91 % Ulices Amber DO Work Phone: [facility] 06-15-2024 14:52-0400 Systolic blood pressure 136 mm[Hg] Ulices Amber DO Work Phone: [facility] 06-09-2024 11:35-0400 Body temperature 98.4 [degF] Diane Tony MD Work Phone: [facility] 06-09-2024 11:35-0400 Diastolic blood pressure 66 mm[Hg] Diane Tony MD Work Phone: [facility] 06-09-2024 11:35-0400 Heart rate 68 /min Diane Tony MD Work Phone: [facility] 06-09-2024 11:35-0400 Respiratory rate 15 /min Diane Tony MD Work Phone: [facility] 06-09-2024 11:35-0400 SaO2% (BldA) [Mass fraction] 95 % Diane Tony MD Work Phone: [facility] 06-09-2024 11:35-0400 Systolic blood pressure 110 mm[Hg] Diane Tony MD Work Phone: [facility] 06-07-2024 22:00-0400 Body height 185.4 cm Diane Tony MD Work Phone: [facility] 06-07-2024 22:00-0400 Body mass index (BMI) [Ratio] 24.35 kg/m2 Diane Tony MD Work Phone: [facility] 06-07-2024 22:00-0400 Body weight 83.7 kg Diane Tony MD Work Phone: [facility] 06-01-2024 15:35-0400 Body height 182.9 cm Vasufreedom Jaimes DO Work Phone: [facility] 06-01-2024 15:35-0400 Body mass index (BMI) [Ratio] 25.28 kg/m2 Vasu Jaimes DO Work Phone: [facility] 06-01-2024 15:35-0400 Body weight 84.55 kg Vasu Angeloae DO Work Phone: [facility] 06-01-2024 15:35-0400 Diastolic blood pressure 81 mm[Hg] Vasu Jaimes DO Work Phone: [facility] 06-01-2024 15:35-0400 Heart rate 54 /min Vasu Jaimes DO Work Phone: [facility] 06-01-2024 15:35-0400 Respiratory rate 16 /min Vasu Jaimes DO Work Phone: [facility] 06-01-2024 15:35-0400 SaO2% (BldA) [Mass fraction] 92 % Vasu Jaimes DO Work Phone: [facility] 06-01-2024 15:35-0400 Systolic blood pressure 125 mm[Hg] Vasu Jaimes DO Work Phone: [facility] 05-26-2024 09:02-0400 Diastolic blood pressure 88 mm[Hg] [address] 05-26-2024 09:02-0400 Heart rate 51 /min [address] 05-26-2024 09:02-0400 Respiratory rate 16 /min [address] 05-26-2024 09:02-0400 SaO2% (BldA) [Mass fraction] 93 % [address] 05-26-2024 09:02-0400 Systolic blood pressure 144 mm[Hg] [address] 05-26-2024 08:06-0400 Body temperature 98.4 [degF] [address] 05-26-2024 06:16-0400 Body height [address] 05-26-2024 06:16-0400 Body mass index (BMI) [Ratio] 24.43 kg/m2 [address] 05-26-2024 06:16-0400 Body weight 83.[address] 05-22-2024 14:05-0400 Body height 185.4 cm Ulices Amber DO Work Phone: [facility] 05-22-2024 14:05-0400 Body mass index (BMI) [Ratio] 24.41 kg/m2 Ulices Amber DO Work Phone: [facility] 05-22-2024 14:05-0400 Body temperature 98.2 [degF] Ulices Amber DO Work Phone: [facility] 05-22-2024 14:05-0400 Body weight 83.92 kg Ulices Amber DO Work Phone: [facility] 05-22-2024 14:05-0400 Diastolic blood pressure 72 mm[Hg] Ulices Amber DO Work Phone: [facility] 05-22-2024 14:05-0400 Heart rate 67 /min Ulices Amber DO Work Phone: [facility] 05-22-2024 14:05-0400 Respiratory rate 18 /min Ulices Amber DO Work Phone: [facility] 05-22-2024 14:05-0400 SaO2% (BldA) [Mass fraction] 93 % Ulices Amber DO Work Phone: [facility] 05-22-2024 14:05-0400 Systolic blood pressure 112 mm[Hg] Ulices Amber DO Work Phone: [facility] 04-22-2024 14:53-0500 Body height 185.4 cm Yobani Smalls MD Work Phone: [facility] 04-22-2024 14:53-0500 Body mass index (BMI) [Ratio] 24.45 kg/m2 Yobani Smalls MD Work Phone: [facility] 04-22-2024 14:53-0500 Body weight 84.05 kg Yobani Smalls MD Work Phone: [facility] 04-22-2024 14:53-0500 Diastolic blood pressure 72 mm[Hg] Yobani Smalls MD Work Phone: [facility] 04-22-2024 14:53-0500 Heart rate 81 /min Yobani Smalls MD Work Phone: [facility] 04-22-2024 14:53-0500 Respiratory rate 18 /min Yobani Smalls MD Work Phone: [facility] 04-22-2024 14:53-0500 SaO2% (BldA) [Mass fraction] 92 % Yobani Smalls MD Work Phone: [facility] 04-22-2024 14:53-0500 Systolic blood pressure 118 mm[Hg] Yobani Smalls MD Work Phone: [facility] 03-17-2024 08:42-0500 Body height 185.4 cm Ulices Amber DO Work Phone: [facility] 03-17-2024 08:42-0500 Body mass index (BMI) [Ratio] 24.57 kg/m2 Ulices Amber DO Work Phone: [facility] 03-17-2024 08:42-0500 Body temperature 99 [degF] Ulices Amber DO Work Phone: [facility] 03-17-2024 08:42-0500 Body weight 84.46 kg Ulices Amber DO Work Phone: [facility] 03-17-2024 08:42-0500 Diastolic blood pressure 79 mm[Hg] Ulices Amber DO Work Phone: [facility] 03-17-2024 08:42-0500 Heart rate 57 /min Ulices Amber DO Work Phone: [facility] 03-17-2024 08:42-0500 Respiratory rate 18 /min Ulices Amber DO Work Phone: [facility] 03-17-2024 08:42-0500 SaO2% (BldA) [Mass fraction] 93 % Ulices Amber DO Work Phone: [facility] 03-17-2024 08:42-0500 Systolic blood pressure 137 mm[Hg] Ulices Amber DO Work Phone: [facility] 01-26-2024 10:32-0500 Body mass index (BMI) [Ratio] 22.3 kg/m2 Sushma Brandon Work Phone: [facility] 01-26-2024 10:32-0500 Body temperature 97.5 [degF] Sushma Brandon Work Phone: [facility] 01-26-2024 10:32-0500 Body weight 78.8 kg Sushma Brandon Work Phone: [facility] 01-26-2024 10:32-0500 Diastolic blood pressure 88 mm[Hg] Sushma Brandon Work Phone: [facility] 01-26-2024 10:32-0500 Heart rate 55 /min Sushma Brandon Work Phone: [facility] 01-26-2024 10:32-0500 Respiratory rate 16 /min Sushma Brandon Work Phone: [facility] 01-26-2024 10:32-0500 SaO2% (BldA) [Mass fraction] 95 % Sushma Brandon Work Phone: [facility] 01-26-2024 10:32-0500 Systolic blood pressure 136 mm[Hg] Sushma Brandon Work Phone: [facility] 01-21-2024 10:38-0500 Body temperature 97.9 [degF] Sholom-Balaji Chernyak DO Work Phone: [facility] 01-21-2024 10:38-0500 Diastolic blood pressure 75 mm[Hg] Sholom-Balaji Chernyak DO Work Phone: [facility] 01-21-2024 10:38-0500 Heart rate 54 /min Sholom-Balaji Chernyak DO Work Phone: [facility] 01-21-2024 10:38-0500 SaO2% (BldA) [Mass fraction] 90 % Sholom-Balaji Chernyak DO Work Phone: [facility] 01-21-2024 10:38-0500 Systolic blood pressure 117 mm[Hg] Sholom-Balaji Chernyak DO Work Phone: [facility] 01-13-2024 13:38-0500 Body height 185.4 cm Ulices Amber DO Work Phone: [facility] 01-13-2024 13:38-0500 Body mass index (BMI) [Ratio] 22.43 kg/m2 Ulices Amber DO Work Phone: [facility] 01-13-2024 13:38-0500 Body temperature 97.2 [degF] Ulices Amber DO Work Phone: [facility] 01-13-2024 13:38-0500 Body weight 77.11 kg Ulices Amber DO Work Phone: [facility] 01-13-2024 13:38-0500 Diastolic blood pressure 89 mm[Hg] Ulices Amber DO Work Phone: [facility] 01-13-2024 13:38-0500 Heart rate 91 /min Ulices Amber DO Work Phone: [facility] 01-13-2024 13:38-0500 Respiratory rate 16 /min Ulices Amber DO Work Phone: [facility] 01-13-2024 13:38-0500 SaO2% (BldA) [Mass fraction] 98 % Ulices Amber DO Work Phone: [facility] 01-13-2024 13:38-0500 Systolic blood pressure 127 mm[Hg] Ulices Amber DO Work Phone: [facility] 12-31-2023 13:20-0500 Body height 185.4 cm Yobani Smalls MD Work Phone: [facility] 12-31-2023 13:20-0500 Body mass index (BMI) [Ratio] 22.34 kg/m2 Yobani Smalls MD Work Phone: [facility] 12-31-2023 13:20-0500 Body weight 76.79 kg Yobani Smalls MD Work Phone: [facility] 12-31-2023 13:20-0500 Diastolic blood pressure 76 mm[Hg] Yobani Smalls MD Work Phone: [facility] 12-31-2023 13:20-0500 Heart rate 61 /min Yobani Smalls MD Work Phone: [facility] 12-31-2023 13:20-0500 Respiratory rate 18 /min Yobani Smalls MD Work Phone: [facility] 12-31-2023 13:20-0500 SaO2% (BldA) [Mass fraction] 91 % Yobani Smalls MD Work Phone: [facility] 12-31-2023 13:20-0500 Systolic blood pressure 110 mm[Hg] Yobani Smalls MD Work Phone: [facility] 12-25-2023 11:51-0500 SaO2% (BldA) [Mass fraction] 92 % Betzy Davalos MD Work Phone: [facility] 12-25-2023 11:18-0500 Body temperature 97.7 [degF] Betzy Davalos MD Work Phone: [facility] 12-25-2023 11:18-0500 Diastolic blood pressure 89 mm[Hg] Betzy Davalos MD Work Phone: [facility] 12-25-2023 11:18-0500 Heart rate 65 /min Betzy Davalos MD Work Phone: [facility] 12-25-2023 11:18-0500 Systolic blood pressure 139 mm[Hg] Betzy Davalos MD Work Phone: [facility] 12-25-2023 07:31-0500 Respiratory rate 18 /min Betzy Davalos MD Work Phone: [facility] 12-22-2023 19:34-0500 Body height 185.4 cm Betzy Davalos MD Work Phone: [facility] 12-18-2023 10:14-0400 Body height 182.9 cm Tess Flores DO Work Phone: [facility] 12-18-2023 10:14-0400 Body mass index (BMI) [Ratio] 22.51 kg/m2 Sholom-Balaji Chernyak DO Work Phone: [facility] 12-18-2023 10:14-0400 Body weight 75.3 kg Sholom-Balaji Chernyak DO Work Phone: [facility] 12-18-2023 10:14-0400 Diastolic blood pressure 84 mm[Hg] Sholom-Balaji Chernyak DO Work Phone: [facility] 12-18-2023 10:14-0400 Heart rate 81 /min Sholom-Balaji Chernyak DO Work Phone: [facility] 12-18-2023 10:14-0400 SaO2% (BldA) [Mass fraction] 95 % Sholom-Balaji Chernyak DO Work Phone: [facility] 12-18-2023 10:14-0400 Systolic blood pressure 119 mm[Hg] Sholom-Balaji Chernyak DO Work Phone: [facility] 12-17-2023 14:42-0400 Body height 185.4 cm Ulices Amber DO Work Phone: [facility] 12-17-2023 14:42-0400 Body mass index (BMI) [Ratio] 21.51 kg/m2 Ulices Amber DO Work Phone: [facility] 12-17-2023 14:42-0400 Body temperature 98.8 [degF] Ulices Amber DO Work Phone: [facility] 12-17-2023 14:42-0400 Body weight 73.94 kg Ulices Amber DO Work Phone: [facility] 12-17-2023 14:42-0400 Diastolic blood pressure 80 mm[Hg] Ulices Amber DO Work Phone: [facility] 12-17-2023 14:42-0400 Heart rate 82 /min Ulices Amber DO Work Phone: [facility] 12-17-2023 14:42-0400 Respiratory rate 16 /min Ulices Amber DO Work Phone: [facility] 12-17-2023 14:42-0400 SaO2% (BldA) [Mass fraction] 90 % Ulices Amber DO Work Phone: [facility] 12-17-2023 14:42-0400 Systolic blood pressure 110 mm[Hg] Ulices Amber DO Work Phone: [facility] 11-15-2023 18:51-0400 Diastolic blood pressure 85 mm[Hg] Ernestina Krishnamurthy DO Work Phone: [facility] 11-15-2023 18:51-0400 Heart rate 73 /min Ernestina Krishnamurthy DO Work Phone: [facility] 11-15-2023 18:51-0400 Respiratory rate 17 /min Ernestina Yeeersen DO Work Phone: [facility] 11-15-2023 18:51-0400 SaO2% (BldA) [Mass fraction] 91 % Ernestina Krishnamurthy DO Work Phone: [facility] Comment on above: baseline 11-15-2023 18:51-0400 Systolic blood pressure 113 mm[Hg] Ernestina Yeeersen DO Work Phone: [facility] 11-15-2023 15:37-0400 Body height 185.4 cm Ernestina Yeeersen DO Work Phone: [facility] 11-15-2023 15:37-0400 Body mass index (BMI) [Ratio] 21.37 kg/m2 Ernestina Yeeersen DO Work Phone: [facility] 11-15-2023 15:37-0400 Body temperature 98.29 [degF] Ernestina Yeeersen DO Work Phone: [facility] 11-15-2023 15:37-0400 Body weight 73.48 kg Ernestina Yeeersen DO Work Phone: [facility] 11-11-2023 08:45-0400 Diastolic blood pressure 82 mm[Hg] [address] 11-11-2023 08:45-0400 Heart rate 71 /min [address] 11-11-2023 08:45-0400 Respiratory rate 16 /min [address] 11-11-2023 08:45-0400 SaO2% (BldA) [Mass fraction] 90 % [address] 11-11-2023 08:45-0400 Systolic blood pressure 117 mm[Hg] [address] 11-11-2023 08:01-0400 Body temperature 97.39 [degF] [address] 11-11-2023 06:18-0400 Body height 185.[address] 11-11-2023 06:18-0400 Body mass index (BMI) [Ratio] 22.11 kg/m2 [address] 11-11-2023 06:18-0400 Body weight [address] 10-23-2023 11:17-0400 Diastolic blood pressure 87 mm[Hg] Ulices Amber DO Work Phone: [facility] 10-23-2023 11:17-0400 Heart rate 77 /min Ulices Amber DO Work Phone: [facility] 10-23-2023 11:17-0400 Respiratory rate 15 /min Ulices Amber DO Work Phone: [facility] 10-23-2023 11:17-0400 SaO2% (BldA) [Mass fraction] 88 % Ulices Amber DO Work Phone: [facility] 10-23-2023 11:17-0400 Systolic blood pressure 126 mm[Hg] Ulices Amber DO Work Phone: [facility] 10-23-2023 11:07-0400 Body height 185.4 cm Ulices Amber DO Work Phone: [facility] 10-23-2023 11:07-0400 Body mass index (BMI) [Ratio] 21.25 kg/m2 Ulices Amber DO Work Phone: [facility] 10-23-2023 11:07-0400 Body temperature 99.19 [degF] Ulices Amber DO Work Phone: [facility] 10-23-2023 11:07-0400 Body weight 73.07 kg Ulices Amber DO Work Phone: [facility] 09-25-2023 14:36-0400 Body height 185.4 cm Gavin Shank PROJECT FACILITATOR Work Phone: [facility] 09-25-2023 14:36-0400 Body mass index (BMI) [Ratio] 22.38 kg/m2 Gavin Shank PROJECT FACILITATOR Work Phone: [facility] 09-25-2023 14:36-0400 Body temperature 98.91 [degF] Gavin Shank PROJECT FACILITATOR Work Phone: [facility] 09-25-2023 14:36-0400 Body weight 76.93 kg Gavin Shank PROJECT FACILITATOR Work Phone: [facility] 09-25-2023 14:36-0400 Diastolic blood pressure 82 mm[Hg] Gavin Shank PROJECT FACILITATOR Work Phone: [facility] 09-25-2023 14:36-0400 Heart rate 57 /min Gavin Shank PROJECT FACILITATOR Work Phone: [facility] 09-25-2023 14:36-0400 Respiratory rate 16 /min Gavin Shank PROJECT FACILITATOR Work Phone: [facility] 09-25-2023 14:36-0400 SaO2% (BldA) [Mass fraction] 90 % Gavin Shank PROJECT FACILITATOR Work Phone: [facility] 09-25-2023 14:36-0400 Systolic blood pressure 130 mm[Hg] Gavin Shank PROJECT FACILITATOR Work Phone: [facility] 09-01-2023 11:07-0400 Body height 185.4 cm Gunjan Godoy MD Work Phone: [facility] 09-01-2023 11:07-0400 Body mass index (BMI) [Ratio] 21.98 kg/m2 Gunjan Godoy MD Work Phone: [facility] 09-01-2023 11:07-0400 Body temperature 98.4 [degF] Gunjan Godoy MD Work Phone: [facility] 09-01-2023 11:07-0400 Body weight 75.57 kg Gunjan Godoy MD Work Phone: [facility] 09-01-2023 11:07-0400 Diastolic blood pressure 72 mm[Hg] Gunjan Godoy MD Work Phone: [facility] 09-01-2023 11:07-0400 Heart rate 80 /min Gunjan Godoy MD Work Phone: [facility] 09-01-2023 11:07-0400 Respiratory rate 18 /min Gunjan Godoy MD Work Phone: [facility] 09-01-2023 11:07-0400 SaO2% (BldA) [Mass fraction] 92 % Gunjan Godoy MD Work Phone: [facility] 09-01-2023 11:07-0400 Systolic blood pressure 108 mm[Hg] Gunjan Godoy MD Work Phone: [facility] 08-26-2023 14:14-0400 Body height 185.4 cm Yobani Smalls MD Work Phone: [facility] 08-26-2023 14:14-0400 Body mass index (BMI) [Ratio] 22.38 kg/m2 Yobani Smalls MD Work Phone: [facility] 08-26-2023 14:14-0400 Body weight 76.93 kg Yobani Smalls MD Work Phone: [facility] 08-26-2023 14:14-0400 Diastolic blood pressure 80 mm[Hg] Yobani Smalls MD Work Phone: [facility] 08-26-2023 14:14-0400 Heart rate 68 /min Yobani Smalls MD Work Phone: [facility] [employer] [facility] 08-26-2023 14:14-0400 Respiratory rate 14 /min Yobani Smalls MD Work Phone: [facility] 08-26-2023 14:14-0400 SaO2% (BldA) [Mass fraction] 92 % Yobani Smalls MD Work Phone: [facility] Comment on above: room [employer] 08-26-2023 14:14-0400 Systolic blood pressure 118 mm[Hg] Yobani Smalls MD Work Phone: [facility] 08-07-2023 11:32-0400 Body height 185.4 cm Gunjan Godoy MD Work Phone: [facility] 08-07-2023 11:32-0400 Body mass index (BMI) [Ratio] 22.3 kg/m2 Gunjan Godoy MD Work Phone: [facility] [employer] [facility] 08-07-2023 11:32-0400 Body temperature 99.5 [degF] Gunjan Godoy MD Work Phone: [facility] 08-07-2023 11:32-0400 Body weight 76.66 kg Gunjan Godoy MD Work Phone: [facility] 08-07-2023 11:32-0400 Diastolic blood pressure 60 mm[Hg] Gunajn Godoy MD Work Phone: [employer] [facility] 08-07-2023 11:32-0400 Heart rate 70 /min Gunjan Godoy MD Work Phone: [employer] [facility] 08-07-2023 11:32-0400 Respiratory rate 18 /min Gunjan Godoy MD Work Phone: [facility] 08-07-2023 11:32-0400 SaO2% (BldA) [Mass fraction] 95 % Gunjan Godoy MD Work Phone: [facility] 08-07-2023 11:32-0400 Systolic blood pressure 92 mm[Hg] Gunjan Godoy MD Work Phone: [facility] 07-23-2023 11:02-0400 Body height 188 cm Sushma Brandon Work Phone: [facility] 07-23-2023 11:02-0400 Body mass index (BMI) [Ratio] 21.16 kg/m2 Sushma Brandon Work Phone: [facility] 07-23-2023 11:02-0400 Body temperature 98.01 [degF] Sushma Brandon Work Phone: [facility] 07-23-2023 11:02-0400 Body weight 74.8 kg Sushma Brandon Work Phone: [facility] 07-23-2023 11:02-0400 Diastolic blood pressure 80 mm[Hg] Sushma Brandon Work Phone: [facility] 07-23-2023 11:02-0400 Heart rate 61 /min Sushma Brandon Work Phone: [facility] 07-23-2023 11:02-0400 Respiratory rate 16 /min Sushma Brandon Work Phone: [facility] 07-23-2023 11:02-0400 SaO2% (BldA) [Mass fraction] 93 % Sushma Brandon Work Phone: [facility] 07-23-2023 11:02-0400 Systolic blood pressure 145 mm[Hg] Sushma Brandon Work Phone: [facility] 07-08-2023 13:05-0400 Body height 188 cm Marium Lowery APRN.ROLLER ENGRAVER Work Phone: [facility] 07-08-2023 13:05-0400 Body mass index (BMI) [Ratio] 19.56 kg/m2 Marium Lowery APRN.ROLLER ENGRAVER Work Phone: [facility] 07-08-2023 13:05-0400 Body weight 69.13 kg Marium Lowery [employer]CTOR.ROLLER ENGRAVER Work Phone: [facility] 07-08-2023 13:05-0400 Diastolic blood pressure 94 mm[Hg] Marium Lowery [employer] INSTRUCTOR.ROLLER ENGRAVER Work Phone: [facility] 07-08-2023 13:05-0400 Heart rate 76 /min Marium Lowery [employer] INSTRUCTOR.ROLLER ENGRAVER Work Phone: [facility] 07-08-2023 13:05-0400 SaO2% (BldA) [Mass fraction] 94 % Marium Lowery [employer] INSTRUCTOR.ROLLER ENGRAVER Work Phone: [facility] 07-08-2023 13:05-0400 Systolic blood pressure 144 mm[Hg] Marium Lowery [employer] INSTRUCTOR.ROLLER ENGRAVER Work Phone: [facility] 06-23-2023 15:21-0400 Body height 188 cm Sushma [employer] Work Phone: [facility] 06-23-2023 15:21-0400 Body mass index (BMI) [Ratio] 20.31 kg/m2 Sushma [employer] Work Phone: [facility] 06-23-2023 15:21-0400 Body temperature 97.81 [degF] Sushma Brandon Work Phone: [facility] 06-23-2023 15:21-0400 Body weight 71.8 kg Sushma Brandon Work Phone: [facility] 06-23-2023 15:21-0400 Diastolic blood pressure 68 mm[Hg] Sushma Brandon Work Phone: [facility] 06-23-2023 15:21-0400 Heart rate 66 /min Sushma Brandon Work Phone: [facility] 06-23-2023 15:21-0400 Respiratory rate 16 /min Sushma Brandon Work Phone: [facility] 05-06-2024 15:21-0400 SaO2% (BldA) [Mass fraction] 93 % Sushma Brandon Work Phone: [facility] 06-23-2023 15:21-0400 Systolic blood pressure 95 mm[Hg] Sushma Brandon Work Phone: [facility] 06-17-2023 11:07-0400 Body temperature 98.6 [degF] Eliseo Patton MD Work Phone: [facility] 06-17-2023 11:07-0400 Diastolic blood pressure 94 mm[Hg] Eliseo Patton MD Work Phone: [employer] [facility] 06-17-2023 11:07-0400 Heart rate 63 /min Eliseo Patton MD Work Phone: [employer] [facility] 06-17-2023 11:07-0400 Respiratory rate 18 /min Eliseo Patton MD Work Phone: [employer] [facility] 06-17-2023 11:07-0400 SaO2% (BldA) [Mass fraction] 92 % Eliseo Patton MD Work Phone: [employer] 06-17-2023 11:07-0400 Systolic blood pressure 143 mm[Hg] Eliseo Patton MD Work Phone: [employer] [facility] 06-17-2023 04:32-0400 Body mass index (BMI) [Ratio] 21.52 kg/m2 Eliseo Patton MD Work Phone: [employer] [facility] 06-17-2023 04:32-0400 Body weight 74 kg Eliseo Patton MD Work Phone: [employer] 06-14-2023 20:00-0400 Body height 185.4 cm Eliseo Patton MD Work Phone: [employer] [facility] 06-04-2023 14:56-0400 Body temperature 97.81 [degF] Linda Jean Baptiste APRN.CNP Work Phone: [facility] 06-04-2023 14:56-0400 Body weight 73.8 kg Linda Jean Baptiste [employer] INSTRUCTOR.PROJECT FACILITATOR Work Phone: [facility] 06-04-2023 14:56-0400 Diastolic blood pressure 66 mm[Hg] Linda Jean Baptiste [employer] INSTRUCTOR.PROJECT FACILITATOR Work Phone: [facility] 06-04-2023 14:56-0400 Heart rate 69 /min Linda Jean Baptiste [employer] INSTRUCTOR.PROJECT FACILITATOR Work Phone: [facility] 06-04-2023 14:56-0400 Respiratory rate 16 /min Linda Jean Baptiste [employer] INSTRUCTOR.PROJECT FACILITATOR Work Phone: [facility] 06-04-2023 14:56-0400 SaO2% (BldA) [Mass fraction] 93 % Linda Jean Baptiste [employer] INSTRUCTOR.PROJECT FACILITATOR Work Phone: [facility] 06-04-2023 14:56-0400 Systolic blood pressure 90 mm[Hg] Linda Jean Baptiste [employer] INSTRUCTOR.PROJECT FACILITATOR Work Phone: [facility] 06-04-2023 10:50-0400 Body height 185.4 cm Yobani Smalls MD Work Phone: [facility] 06-04-2023 10:50-0400 Body mass index (BMI) [Ratio] 21.41 kg/m2 Yobani Smalls MD Work Phone: [facility] 06-04-2023 10:50-0400 Body weight 73.62 kg Yobani Smalls MD Work Phone: [facility] 06-04-2023 10:50-0400 Diastolic blood pressure 68 mm[Hg] Yobani Smalls MD Work Phone: [facility] 06-04-2023 10:50-0400 Heart rate 68 /min Yobani Smalls MD Work Phone: [facility] 06-04-2023 10:50-0400 Respiratory rate 18 /min Yobani Smalls MD Work Phone: [facility] 06-04-2023 10:50-0400 SaO2% (BldA) [Mass fraction] 91 % Yobani Smalls MD Work Phone: [facility] 06-04-2023 10:50-0400 Systolic blood pressure 110 mm[Hg] Yobani Smalls MD Work Phone: [facility] 06-02-2023 13:39-0400 Body height 185.4 cm Josi Naylor PROJECT FACILITATOR Work Phone: [facility] 06-02-2023 13:39-0400 Body mass index (BMI) [Ratio] 21.82 kg/m2 Josi Naylor PROJECT FACILITATOR Work Phone: [facility] 06-02-2023 13:39-0400 Body temperature 97.39 [degF] Josifrancoise Naylor PROJECT FACILITATOR Work Phone: [facility] 06-02-2023 13:39-0400 Body weight 75.03 kg Josi Naylor PROJECT FACILITATOR Work Phone: [facility] 06-02-2023 13:39-0400 Diastolic blood pressure 62 mm[Hg] Josi Naylor PROJECT FACILITATOR Work Phone: [facility] 06-02-2023 13:39-0400 Heart rate 73 /min Josieulalio Naylor PROJECT FACILITATOR Work Phone: [facility] 06-02-2023 13:39-0400 Respiratory rate 18 /min Josi Naylor PROJECT FACILITATOR Work Phone: [facility] 06-02-2023 13:39-0400 SaO2% (BldA) [Mass fraction] 91 % Josi Naylor PROJECT FACILITATOR Work Phone: [facility] 06-02-2023 13:39-0400 Systolic blood pressure 104 mm[Hg] Josi Naylor PROJECT FACILITATOR Work Phone: [facility] 04-11-2024 15:39-0400 Body weight 77.5 kg Zoya Hillman MARTINE Work Phone: [facility] 05-26-2023 07:00-0400 SaO2% (BldA) [Mass fraction] 92 % Juan Gomez MD Work Phone: [facility] 05-26-2023 05:34-0400 Body mass index (BMI) [Ratio] 21.94 kg/m2 Juan Gomez MD Work Phone: [facility] 05-26-2023 05:34-0400 Body weight 75.43 kg Juan Gomez MD Work Phone: [facility] 05-26-2023 05:00-0400 Heart rate 57 /min Juan Gomez MD Work Phone: [facility] 05-26-2023 05:00-0400 Respiratory rate 21 /min Juan Gomez MD Work Phone: [facility] 05-26-2023 04:45-0400 Body temperature 97.59 [degF] Juan Gomez MD Work Phone: [facility] 05-26-2023 04:00-0400 Diastolic blood pressure 63 mm[Hg] Juan Gomez MD Work Phone: [facility] 05-26-2023 04:00-0400 Systolic blood pressure 121 mm[Hg] Juan Gomez MD Work Phone: [facility] 05-25-2023 00:35-0400 Body height 185.4 cm Juan Gomez MD Work Phone: [facility] 05-24-2023 19:53-0400 SaO2% (BldA) [Mass fraction] 98.5 % Juan Gomez MD Work Phone: [facility] 05-19-2023 11:03-0400 Body height 182.9 cm Jim Holder MD Work Phone: [facility] 05-19-2023 11:03-0400 Body mass index (BMI) [Ratio] 22.89 kg/m2 Jim Holder MD Work Phone: [facility] 05-19-2023 11:03-0400 Body temperature 98.1 [degF] Jim Holder MD Work Phone: [facility] 05-19-2023 11:03-0400 Body weight 76.57 kg Jim Holder MD Work Phone: [facility] 05-11-2023 11:29-0400 Body temperature 97.7 [degF] Chaka Campos MD Work Phone: [facility] 05-11-2023 11:29-0400 Diastolic blood pressure 67 mm[Hg] Chaka Campos MD Work Phone: [facility] 05-11-2023 11:29-0400 Heart rate 57 /min Chaka Campos MD Work Phone: [facility] 05-11-2023 11:29-0400 Respiratory rate 20 /min Chaka Campos MD Work Phone: [facility] 05-11-2023 11:29-0400 SaO2% (BldA) [Mass fraction] 96 % Chaka Campos MD Work Phone: [facility] 05-11-2023 11:29-0400 Systolic blood pressure 104 mm[Hg] Chaka Campos MD Work Phone: [facility] 05-09-2023 12:10-0400 Body height 185.4 cm Chaka Campos MD Work Phone: [facility] 05-09-2023 12:10-0400 Body mass index (BMI) [Ratio] 22.3 kg/m2 Chaka Campos MD Work Phone: [facility] 05-09-2023 12:10-0400 Body weight 76.66 kg Chaka Campos MD Work Phone: [facility] 05-09-2023 10:40-0400 SaO2% (BldA) [Mass fraction] 96.4 % Chaka Campos MD Work Phone: [facility] 04-20-2023 11:39-0500 Body temperature 99.19 [degF] Burton George MD Work Phone: [facility] 04-20-2023 11:39-0500 Diastolic blood pressure 68 mm[Hg] Burton George MD Work Phone: [facility] 04-20-2023 11:39-0500 Heart rate 65 /min Burton George MD Work Phone: [facility] 04-20-2023 11:39-0500 Respiratory rate 15 /min Burton George MD Work Phone: [facility] 04-20-2023 11:39-0500 SaO2% (BldA) [Mass fraction] 93 % Burton George MD Work Phone: [facility] 04-20-2023 11:39-0500 Systolic blood pressure 165 mm[Hg] Burton George MD Work Phone: [facility] 04-20-2023 06:00-0500 Body mass index (BMI) [Ratio] 23.33 kg/m2 Burton George MD Work Phone: [facility] 04-20-2023 06:00-0500 Body weight 80.2 kg Burton George MD Work Phone: [facility] 04-20-2023 04:51-0500 SaO2% (BldA) [Mass fraction] 95.9 % Burton George MD Work Phone: [facility] 04-19-2023 06:00-0500 Body height 185.4 cm Burton George MD Work Phone: [facility] 04-08-2023 11:35-0500 Body temperature 97.9 [degF] SWETHA Godoy MD Work Phone: [facility] 04-08-2023 11:35-0500 Diastolic blood pressure 62 mm[Hg] SWETHA Godoy MD Work Phone: [facility] 04-08-2023 11:35-0500 Heart rate 55 /min SWETHA Godoy MD Work Phone: [facility] 04-08-2023 11:35-0500 Respiratory rate 16 /min SWETHA Godoy MD Work Phone: [facility] 04-08-2023 11:35-0500 SaO2% (BldA) [Mass fraction] 93 % SWETHA Godoy MD Work Phone: [facility] 04-08-2023 11:35-0500 Systolic blood pressure 96 mm[Hg] SWETHA Godoy MD Work Phone: [facility] 04-08-2023 05:04-0500 Body mass index (BMI) [Ratio] 22.82 kg/m2 SWETHA Godoy MD Work Phone: [facility] 04-08-2023 05:04-0500 Body weight 78.47 kg SWETHA Godoy MD Work Phone: [facility] 04-07-2023 10:45-0500 Body height 185.4 cm SWETHA Godoy MD Work Phone: [facility] 03-21-2023 14:40-0500 Body height 188 cm Sushma Brandon Work Phone: [facility] 03-21-2023 14:40-0500 Body temperature 98.71 [degF] Sushma Brandon Work Phone: [facility] 03-21-2023 14:40-0500 Body weight 79.2 kg Sushma Brandon Work Phone: [facility] 03-21-2023 14:40-0500 Diastolic blood pressure 74 mm[Hg] Sushma Brandon Work Phone: [facility] 03-21-2023 14:40-0500 Heart rate 67 /min Sushma Brandon Work Phone: [facility] 03-21-2023 14:40-0500 Respiratory rate 16 /min Sushma Brandon Work Phone: [facility] 03-21-2023 14:40-0500 SaO2% (BldA) [Mass fraction] 94 % Sushma Brandon Work Phone: [facility] 03-21-2023 14:40-0500 Systolic blood pressure 127 mm[Hg] Sushma Brandon Work Phone: [facility] 03-18-2023 13:24-0500 Body height 182.9 cm SWETHA Godoy MD Work Phone: [facility] 03-18-2023 13:24-0500 Body mass index (BMI) [Ratio] 24.01 kg/m2 SWETHA Godoy MD Work Phone: [facility] 03-18-2023 13:24-0500 Body weight 80.29 kg SWETHA Godoy MD Work Phone: [facility] 03-18-2023 13:24-0500 Diastolic blood pressure 64 mm[Hg] SWETHA Godoy MD Work Phone: [facility] 03-18-2023 13:24-0500 Respiratory rate 16 /min SWETHA Godoy MD Work Phone: [facility] 03-18-2023 13:24-0500 Systolic blood pressure 112 mm[Hg] SWETHA Godoy MD Work Phone: [facility] 03-04-2023 12:10-0500 Body temperature 97.9 [degF] Galen Miller MD Work Phone: [facility] 03-04-2023 12:10-0500 Diastolic blood pressure 73 mm[Hg] Galen Miller MD Work Phone: [facility] 03-04-2023 12:10-0500 Heart rate 56 /min Galen Miller MD Work Phone: [facility] 03-04-2023 12:10-0500 Respiratory rate 24 /min Galen Miller MD Work Phone: [facility] 03-04-2023 12:10-0500 SaO2% (BldA) [Mass fraction] 93 % Galen Miller MD Work Phone: [facility] 03-04-2023 12:10-0500 Systolic blood pressure 133 mm[Hg] Galen Miller MD Work Phone: [facility] 03-03-2023 16:25-0500 Body height 182.9 cm Galen Miller MD Work Phone: [facility] 03-03-2023 16:25-0500 Body mass index (BMI) [Ratio] 23.52 kg/m2 Galen Miller MD Work Phone: [facility] 03-03-2023 16:25-0500 Body weight 78.65 kg Galen Miller MD Work Phone: [facility] Comment on above: bed scale, bed zeroed 02-21-2023 14:01-0500 Body height 185.5 cm Gunjan Godoy MD Work Phone: [facility] 02-21-2023 14:01-0500 Body mass index (BMI) [Ratio] 22.88 kg/m2 Gunjan Godoy MD Work Phone: [facility] 02-21-2023 14:01-0500 Body temperature 97.81 [degF] Gunjan Godoy MD Work Phone: [facility] 02-21-2023 14:01-0500 Body weight 78.74 kg Gunjan Goody MD Work Phone: [facility] 02-21-2023 14:01-0500 Diastolic blood pressure 70 mm[Hg] Gunjan Godoy MD Work Phone: [facility] 02-21-2023 14:01-0500 Systolic blood pressure 132 mm[Hg] Gunjan Godoy MD Work Phone: [facility] 11-27-2022 13:15-0400 Body height 188 cm Linda Jean Baptiste APRN.PROJECT FACILITATOR Work Phone: [facility] 11-27-2022 13:15-0400 Body temperature 98.2 [degF] Linda Jean Baptiste APRN.PROJECT FACILITATOR Work Phone: [facility] 11-27-2022 13:15-0400 Body weight 84.6 kg Linda Jean Baptiste APRN.PROJECT FACILITATOR Work Phone: [facility] 11-27-2022 13:15-0400 Diastolic blood pressure 70 mm[Hg] Linda Jean Baptiste [employer] INSTRUCTOR.PROJECT FACILITATOR Work Phone: [facility] 11-27-2022 13:15-0400 Heart rate 59 /min Linda Jean Baptiste APRN.PROJECT FACILITATOR Work Phone: [facility] 11-27-2022 13:15-0400 Respiratory rate 16 /min Linda Jean Baptiste APRN.PROJECT FACILITATOR Work Phone: [facility] 11-27-2022 13:15-0400 SaO2% (BldA) [Mass fraction] 90 % Linda Jean Baptiste APRN.PROJECT FACILITATOR Work Phone: [facility] 11-27-2022 13:15-0400 Systolic blood pressure 117 mm[Hg] Linda Jean Baptiste APRN.PROJECT FACILITATOR Work Phone: [facility] 08-19-2022 11:13-0400 Body height 185.4 cm Jim Holder MD Work Phone: [facility] 08-19-2022 11:13-0400 Body mass index (BMI) [Ratio] 25.32 kg/m2 Jim Holder MD Work Phone: [facility] 08-19-2022 11:13-0400 Body temperature 97.11 [degF] Jim Holder MD Work Phone: [facility] 08-19-2022 11:13-0400 Body weight 87.05 kg Jim Holder MD Work Phone: [facility] 07-23-2022 14:57-0400 Body height 185.4 cm Jim Holder MD Work Phone: [facility] 07-23-2022 14:57-0400 Body mass index (BMI) [Ratio] 25.07 kg/m2 Jim Holder MD Work Phone: [facility] 07-23-2022 14:57-0400 Body temperature 99 [degF] Jim Holder MD Work Phone: [facility] 07-23-2022 14:57-0400 Body weight 86.18 kg Jim Holder MD Work Phone: [facility] 06-10-2022 13:37-0400 Body temperature 98.2 [degF] Tad Madison MD Work Phone: [facility] 06-10-2022 13:37-0400 Body weight 92.03 kg Tad Madison MD Work Phone: [facility] 06-10-2022 13:37-0400 Diastolic blood pressure 68 mm[Hg] Tad Madison MD Work Phone: [facility] 06-10-2022 13:37-0400 Heart rate 59 /min Tad Madison MD Work Phone: [facility] 06-10-2022 13:37-0400 Respiratory rate 16 /min Tad Madison MD Work Phone: [facility] 06-10-2022 13:37-0400 SaO2% (BldA) [Mass fraction] 93 % Tad Madison MD Work Phone: [facility] 06-10-2022 13:37-0400 Systolic blood pressure 88 mm[Hg] Tad Madison MD Work Phone: [facility] 03-15-2022 10:57-0500 Body temperature 97.59 [degF] [facility] Work Phone: [facility] [facility]-15-2022 10:57-0500 Diastolic blood pressure 70 mm[Hg] Chair Stephy Work Phone: [facility] 03-15-2022 10:57-0500 Heart rate 63 /min Chair Goodyear Work Phone: [facility] 03-15-2022 10:57-0500 Respiratory rate 16 /min Chair Goodyear Work Phone: [facility] 03-15-2022 10:57-0500 Systolic blood pressure 100 mm[Hg] [facility] Work Phone: [facility] 03-15-2022 10:35-0500 SaO2% (BldA) [Mass fraction] 95 % Chair Goodyear Work Phone: [facility] 02-07-2022 13:43-0500 Body height 185.5 cm Richy Emerson MD Work Phone: [facility] 02-07-2022 13:43-0500 Body mass index (BMI) [Ratio] 26.63 kg/m2 Richy Emerson MD Work Phone: [facility] 02-07-2022 13:43-0500 Body temperature 97.7 [degF] iRchy Emerson MD Work Phone: [facility] 02-07-2022 13:43-0500 Body weight 91.63 kg Richy Emerson MD Work Phone: [facility] 02-07-2022 13:43-0500 Diastolic blood pressure 76 mm[Hg] Richy Emerson MD Work Phone: [facility] 02-07-2022 13:43-0500 Heart rate 67 /min Richy Emerson MD Work Phone: [facility] 02-07-2022 13:43-0500 Respiratory rate 18 /min Richy Emerson MD Work Phone: [facility] 02-07-2022 13:43-0500 SaO2% (BldA) [Mass fraction] 92 % Richy Emerson MD Work Phone: [facility] 02-07-2022 13:43-0500 Systolic blood pressure 104 mm[Hg] Richy Emerson MD Work Phone: [facility] 12-13-2021 11:03-0400 Body temperature 98.1 [degF] Tad Madison MD Work Phone: [facility] 12-13-2021 11:03-0400 Body weight 92.4 kg Tad Madison MD Work Phone: [facility] 12-13-2021 11:03-0400 Diastolic blood pressure 46 mm[Hg] Tad Madison MD Work Phone: [facility] 12-13-2021 11:03-0400 Heart rate 69 /min Tad Madison MD Work Phone: [facility] 12-13-2021 11:03-0400 Respiratory rate 20 /min Tad Madison MD Work Phone: [facility] 12-13-2021 11:03-0400 SaO2% (BldA) [Mass fraction] 92 % Tad Madison MD Work Phone: [facility] 12-13-2021 11:03-0400 Systolic blood pressure 92 mm[Hg] Tad Madison MD Work Phone: [facility] 12-04-2021 15:27-0400 Body height 185.5 cm Richy Emerson MD Work Phone: [facility] 12-04-2021 15:27-0400 Body mass index (BMI) [Ratio] 26.44 kg/m2 Richy Emerson MD Work Phone: [facility] 12-04-2021 15:27-0400 Body temperature 97.5 [degF] Richy Emerson MD Work Phone: [facility] 12-04-2021 15:27-0400 Body weight 90.99 kg Richy Emerson MD Work Phone: [facility] 12-04-2021 15:27-0400 Diastolic blood pressure 62 mm[Hg] Richy Emerson MD Work Phone: [facility] 12-04-2021 15:27-0400 Heart rate 63 /min Richy Emerson MD Work Phone: [facility] 12-04-2021 15:27-0400 Respiratory rate 20 /min Richy Emerson MD Work Phone: [facility] 12-04-2021 15:27-0400 SaO2% (BldA) [Mass fraction] 90 % Richy Emerson MD Work Phone: [facility] 12-04-2021 15:27-0400 Systolic blood pressure 102 mm[Hg] Richy Emerson MD Work Phone: [facility] 11-12-2021 11:10-0400 Body temperature 98.01 [degF] Melissa [employer]PRO[employer] FACILITATOR Work Phone: [facility] 11-12-2021 11:10-0400 Body weight 94.98 kg Linda [address] [employer].PROJECT FACILITATOR Work Phone: [facility] 11-12-2021 11:10-0400 Diastolic blood pressure 80 mm[Hg] Melissa [employer]CTOR.PROJECT FACILITATOR Work Phone: [facility] 11-12-2021 11:10-0400 Heart rate 57 /min Melissa [employer]CTOR.PROJECT FACILITATOR Work Phone: [facility] 11-12-2021 11:10-0400 Respiratory rate 16 /min Melissa [employer]CTOR.PROJECT FACILITATOR Work Phone: [facility] 11-12-2021 11:10-0400 SaO2% (BldA) [Mass fraction] 92 % Melissa [employer]CTOR.PROJECT FACILITATOR Work Phone: [facility] 11-12-2021 11:10-0400 Systolic blood pressure 109 mm[Hg] Linda Jean Baptiste SYLVIA Work Phone: [facility] 11-08-2021 13:53-0400 Body height 185.5 cm Richy Emerson MD Work Phone: [facility] 11-08-2021 13:53-0400 Body mass index (BMI) [Ratio] 27.1 kg/m2 Richy Emerson MD Work Phone: [facility] 11-08-2021 13:53-0400 Body temperature 97 [degF] Richy Emerson MD Work Phone: [facility] 11-08-2021 13:53-0400 Body weight 93.26 kg Richy Emerson MD Work Phone: [facility] 11-08-2021 13:53-0400 Diastolic blood pressure 82 mm[Hg] Richy Emerson MD Work Phone: [facility] 11-08-2021 13:53-0400 Heart rate 64 /min Richy Emerson MD Work Phone: [facility] 11-08-2021 13:53-0400 Respiratory rate 20 /min Richy Emerson MD Work Phone: [facility] 11-08-2021 13:53-0400 SaO2% (BldA) [Mass fraction] 97 % Richy Emerson MD Work Phone: [facility] 11-08-2021 13:53-0400 Systolic blood pressure 114 mm[Hg] Richy Emerson MD Work Phone: [facility] 07-18-2021 10:09-0400 Body height 185.5 cm Richy Emerson MD Work Phone: [facility] 07-18-2021 10:09-0400 Body mass index (BMI) [Ratio] 27.05 kg/m2 Richy Emerson MD Work Phone: [facility] 07-18-2021 10:09-0400 Body temperature 98.01 [degF] Richy Emerson MD Work Phone: [facility] 07-18-2021 10:09-0400 Body weight 93.08 kg Richy Emerson MD Work Phone: [facility] 07-18-2021 10:09-0400 Diastolic blood pressure 68 mm[Hg] Richy Emerson MD Work Phone: [facility] 07-18-2021 10:09-0400 Heart rate 72 /min Richy Emerson MD Work Phone: [facility] 07-18-2021 10:09-0400 Respiratory rate 18 /min Richy Emerson MD Work Phone: [facility] 07-18-2021 10:09-0400 SaO2% (BldA) [Mass fraction] 94 % Richy Emerson MD Work Phone: [facility] 07-18-2021 10:09-0400 Systolic blood pressure 114 mm[Hg] Richy Emerson MD Work Phone: [facility] 05-15-2021 15:32-0400 Diastolic blood pressure 74 mm[Hg] Chair Goodyear Work Phone: [facility] 05-15-2021 15:32-0400 Heart rate 74 /min Chair Goodyear Work Phone: [facility] 05-15-2021 15:32-0400 Respiratory rate 18 /min Chair Goodyear Work Phone: [facility] 05-15-2021 15:32-0400 Systolic blood pressure 134 mm[Hg] Chair Goodyear Work Phone: [facility] 05-15-2021 14:26-0400 Body height 188 cm Sushma Brandon Work Phone: [facility] 05-15-2021 14:26-0400 Body temperature 98.1 [degF] Sushma Brandon Work Phone: [facility] 05-15-2021 14:26-0400 Body weight 95.48 kg Sushma Brandon Work Phone: [facility] 05-15-2021 14:26-0400 Diastolic blood pressure 71 mm[Hg] Sushma Brandon Work Phone: [facility] 05-15-2021 14:26-0400 Heart rate 59 /min Sushma Brandon Work Phone: [facility] 05-15-2021 14:26-0400 Respiratory rate 16 /min Sushma Brandon Work Phone: [facility] 05-15-2021 14:26-0400 SaO2% (BldA) [Mass fraction] 95 % Sushma Brandon Work Phone: [facility] 05-15-2021 14:26-0400 Systolic blood pressure 101 mm[Hg] Sushma Brandon Work Phone: [facility] 04-18-2021 13:28-0500 Body height 185.5 cm Richy Emerson MD Work Phone: [facility] 04-18-2021 13:28-0500 Body mass index (BMI) [Ratio] 28.42 kg/m2 Richy Emerson MD Work Phone: [facility] 04-18-2021 13:28-0500 Body temperature 97.9 [degF] Richy Emerson MD Work Phone: [facility] 04-18-2021 13:28-0500 Body weight 97.8 kg Richy Emerson MD Work Phone: [facility] 04-18-2021 13:28-0500 Diastolic blood pressure 78 mm[Hg] Richy Emerson MD Work Phone: [facility] 04-18-2021 13:28-0500 Heart rate 70 /min Richy Emerson MD Work Phone: [facility] 04-18-2021 13:28-0500 Respiratory rate 18 /min Richy Emerson MD Work Phone: [facility] 04-18-2021 13:28-0500 SaO2% (BldA) [Mass fraction] 90 % Rihcy Emerson MD Work Phone: [facility] 04-18-2021 13:28-0500 Systolic blood pressure 116 mm[Hg] Richy Emerson MD Work Phone: [facility] 04-07-2021 09:00-0500 Body temperature 97.88 [degF] Richy Emerson Other Phone: [facility] 04-07-2021 09:00-0500 Diastolic blood pressure 76 mm[Hg] Richy Emerson Other Phone: [facility] 04-07-2021 09:00-0500 Heart rate 75 /min Richy Emerson Other Phone: [facility] 04-07-2021 09:00-0500 Respiratory rate 20 /min Richy Emerson Other Phone: [facility] 04-07-2021 09:00-0500 SaO2% (BldA) [Mass fraction] 94 % Richy Emerson Other Phone: [facility] 04-07-2021 09:00-0500 Systolic blood pressure 112 mm[Hg] Richy Emerson Other Phone: [facility] 01-01-2018 14:49-0500 Body Temperature 98.49 [degF] Richy Emerson [facility] Work Phone: 01-01-2018 14:49-0500 BP Diastolic 102 mm[Hg] Richy Emerson [facility] Work Phone: 01-01-2018 14:49-0500 BP Systolic 140 mm[Hg] Richy Emerson [facility] Work Phone: 01-01-2018 14:49-0500 Pulse (Heart Rate) 64 /min Richy Emerson [facility] Work Phone: 01-01-2018 14:49-0500 Pulse Oximetry 96 % Richy Emerson [facility] Work Phone: Encounters Encounter Date Encounter Type Care Provider Facility Start: 01-05-2025 ambulatory Out of Town Doctor Lucho cabrera:[facility] Start: 12-28-2024 End: 12-28-2024 ambulatory ULICES CLARK [facility] Start: 12-24-2024 End: 12-24-2024 Emergency department patient visit ULICES CLARK [facility] Start: 12-21-2024 End: 12-21-2024 ambulatory KAUSHIK WHITFIELD [facility] Start: 12-15-2024 End: 12-18-2024 Evaluation and management of inpatient Ifeanyi Scott DO Work Phone: [facility] Start: 12-08-2024 End: 12-08-2024 ambulatory ULICES R AMBER Facility:[facility] Start: 12-08-2024 ambulatory ULICES R AMBER Facility: [facility] Start: 12-08-2024 End: 12-08-2024 ambulatory ULICES R AMBER Facility:[facility] Start: 11-17-2024 End: 11-22-2024 Evaluation and management of inpatient Antoniohiwot Fontaine DO Work Phone: [facility] Start: 11-17-2024 End: 11-17-2024 Office outpatient new 45 minutes Kaushik Whitfield MD Work Phone: [facility] Comment on above: Mild cognitive impai rment (Primary Dx) Start: 11-17-2024 End: 11-17-2024 ambulatory ULICES CLARK [facility] Start: 11-15-2024 End: 11-15-2024 Office outpatient visit 15 minutes Gavin Hammonds CNP Work Phone: [facility] Comment on above: Viral syndrome (Prim carrol Dx); Cough, unspecified type Start: 11-15-2024 End: 11-15-2024 ambulatory ULICES Chuyita. AMBER [facility] Start: 11-09-2024 End: 11-09-2024 Office outpatient visit 25 minutes Ulices Clark DO Work Phone: [facility] Comment on above: Memory loss (Primary Dx); Abdominal aortic aneurysm (AAA) without rupture, unspecified part (HCC); Chronic respiratory failure with hypoxia, on home oxygen therapy (HCC) Start: 11-09-2024 End: 11-09-2024 ambulatory ULICES R. AMBER [facility] Start: 11-08-2024 End: 11-08-2024 ambulatory ULICES R AMBER Facility:[facility] Start: 11-03-2024 End: 11-03-2024 Refill Ulices Clark DO Work Phone: [facility] Comment on above: Anxiety and depressi on Start: 10-25-2024 End: 10-25-2024 Refill Omer Adler MD Work Phone: Pulmonary Medicine Start: 10-13-2024 End: 10-13-2024 Telephone encounter Omer Adler MD Work Phone: Pulmonary Medicine Start: 10-08-2024 End: 10-08-2024 Telephone encounter Omer Adler MD Work Phone: Pulmonary Medicine Start: 10-08-2024 End: 10-08-2024 Patient encounter procedure Naida Phillips MD Work Phone: Ophthalmology Comment on above: Dry eye syndrome of both eyes (Primary Dx); Meibomian gland dysfunction (MGD) of upper and lower lids of both eyes; Epiretinal membrane (ERM) of left eye; Vitelliform lesion of macula, Left eye; Pseudophakia of both eyes Start: 10-08-2024 End: 10-08-2024 ambulatory ULICES R AMBER Facility:[facility] Start: 10-04-2024 End: 10-04-2024 ambulatory ULICES R AMBER Facility:[facility] Start: 09-29-2024 End: 09-29-2024 Patient encounter procedure Naida Phillips MD Work Phone: Ophthalmology Comment on above: Meibomian gland dysf unction (MGD) of upper and lower lids of both eyes (Primary Dx); Dry eye syndrome of both eyes; Epiretinal membrane (ERM) of left eye; Vitelliform lesion of macula, Left eye; Pseudophakia of both eyes Start: 09-29-2024 End: 09-29-2024 ambulatory ULICES CLARK Facility:[facility] Start: 09-29-2024 End: 09-29-2024 Office outpatient visit 10 minutes Vasu Jaimes DO Work Phone: [facility] Comment on above: S/P percutaneous end oscopic gastrostomy (PEG) tube placement (Multi) (Primary Dx) Start: 09-29-2024 End: 09-29-2024 ambulatory [facility] Start: 09-16-2024 End: 09-16-2024 Patient encounter procedure Omer Adler MD Work Phone: Pulmonary Medicine Comment on above: Bronchiectasis witho ut complication (HCC) (Primary Dx); Moderate COPD (chronic obstructive pulmonary disease) (HCC); Aspiration into airway, subsequent encounter; History of tongue cancer; Former smoker Start: 09-16-2024 End: 09-16-2024 ambulatory GUNJAN GODOY Facility:[facility] Start: 09-15-2024 End: 11-15-2024 Follow-up encounter Ulices Clark DO Work Phone: [facility] Comment on above: XR Chest AP/PA and L AT, Comprehensive Metabolic Panel Start: 09-14-2024 End: 09-14-2024 Office outpatient visit 25 minutes Ulices Clark DO Work Phone: [facility] Comment on above: Acute conjunctivitis of left eye, unspecified acute conjunctivitis type (Primary Dx); Respiratory crackles of both lungs; Bilateral leg edema Start: 09-14-2024 End: 09-14-2024 Refill Ulices Clark DO Work Phone: [facility] Comment on above: Acute conjunctivitis of left eye, unspecified acute conjunctivitis type Start: 09-06-2024 End: 09-06-[address] Work Phone: Nutrition Therapy Start: 09-06-2024 End: 09-06-[address]oya Hillman RD Work Phone: Nutrition Therapy Comment on above: Nutrition Counseling Start: 09-06-2024 End: 09-06-2024 ambulatory [facility] Facility:[facility] Start: 09-02-2024 End: 09-02-2024 Office outpatient visit 25 minutes Vasu Chuyita Jaimes DO Work Phone: [facility] Comment on above: S/P percutaneous end oscopic gastrostomy (PEG) tube placement (Multi) (Primary Dx); Pharyngoesophageal dysphagia; History of throat cancer Start: 09-02-2024 End: 09-02-2024 [facility] Start: 08-25-2024 End: 08-25-2024 Documentation procedure Ulices Clark DO Work Phone: [facility] Start: 08-24-2024 End: 08-24-2024 Orders Only Ulices Clark DO Work Phone: [facility] Comment on above: Chronic respiratory failure with hypoxia, on home oxygen therapy (HCC) (Primary Dx) Start: 08-23-2024 End: 08-23-2024 Documentation procedure Ulices Clark DO Work Phone: [facility] Start: 08-16-2024 ambulatory [facility] Facility:[facility] Start: 08-16-2024 End: 08-16-2024 Subsequent hospital visit by physician [facility] Work Phone: Radiology [facility] Comment on above: Multiple lung nodule s on CT [R91.8] Start: 08-11-2024 End: 08-11-2024 ambulatory ULICES CLARK [facility] Start: 08-11-2024 End: 08-11-2024 Office outpatient visit 25 minutes Gavin Gilma Nasra AMBRIZ Work Phone: [facility] Comment on above: Hospital discharge f ollow-up (Primary Dx); Acute on chronic respiratory failure with hypoxia (HCC); Cough, unspecified type; History of tongue cancer; Centrilobular emphysema (HCC); S/P percutaneous endoscopic gastrostomy (PEG) tube placement (HCC) Start: 08-09-2024 End: 08-09-[address] Work Phone: Nutrition Therapy Start: 08-09-2024 End: 08-09-[address]24 Nutrition therapy Zoya Hillman RD Work Phone: Nutrition Therapy Comment on above: Nutrition Assessment Start: 08-09-2024 End: 08-09-2024 Patient encounter procedure Sushma Brandon Work Phone: Hematology/Oncology Start: 08-09-2024 End: 08-09-2024 ambulatory Sushma Brandon Work Phone: Hematology/Oncology Comment on above: Multiple lung nodule s on CT (Primary Dx); Aspiration into lower respiratory tract, subsequent encounter; History of tongue cancer Start: 08-06-2024 End: 08-06-2024 ambulatory [facility] Facility:[facility] Start: 08-06-2024 End: 08-06-[address] Work Phone: Nutrition Therapy Start: 08-06-2024 End: 08-06-[address] Zoya [address]man RD Work Phone: Nutrition Therapy Comment on above: Nutrition Telephone Start: 08-05-2024 End: 10-05-2024 Follow-up encounter Linda Jean Baptiste APRN.CNP Work Phone: Hematology/Oncology Start: 08-05-2024 End: 08-05-2024 ambulatory [facility] Facility:[facility] Start: 07-30-2024 End: 07-31-2024 ambulatory BURTON GEORGE [facility] Start: 07-30-2024 End: 07-31-2024 Evaluation and management of inpatient Stevenson Andrews DO Work Phone: [facility] Comment on above: Elevated troponin Start: 07-23-2024 End: 07-23-2024 Office outpatient visit 25 minutes Yobani Bojorquez MD Work Phone: [facility] Pulmonary Disease [facility] Comment on above: Aspiration pneumonia of both lower lobes, unspecified aspiration pneumonia type (Primary Dx); Multiple lung nodules on CT; Malignant neoplasm of base of tongue; Chronic respiratory failure with hypoxia, on home oxygen therapy; Centrilobular emphysema; Chronic obstructive pulmonary disease, unspecified COPD type Start: 07-23-2024 ambulatory ULICES CLARK [facility] Start: 07-15-2024 End: 09-14-2024 Follow-up encounter Gavin Hammonds CNP Work Phone: [facility] Comment on above: XR Chest AP/PA and L AT Start: 07-14-2024 End: 07-14-2024 Office outpatient visit 25 minutes Gavin Hammonds CNP Work Phone: [facility] Comment on above: Hospital discharge f ollow-up (Primary Dx); Pneumonia of both lower lobes due to infectious organism; Cough, unspecified type; Oropharyngeal dysphagia; Gastroesophageal reflux disease, unspecified whether esophagitis present; History of tongue cancer; Centrilobular emphysema (HCC); S/P percutaneous endoscopic gastrostomy (PEG) tube placement (HCC) Start: 07-14-2024 End: 07-14-2024 ambulatory ULICES CLARK [facility] Start: 07-04-2024 End: 07-06-2024 ambulatory ANGELA FITCH [facility] Start: 07-04-2024 End: 07-06-2024 Evaluation and management of inpatient Sonu Jones MD Work Phone: [facility] 2nd Floor Comment on above: Pneumonia of both lo wer lobes due to infectious organism Start: 06-28-2024 End: 06-28-2024 Refill Ulices Clark DO Work Phone: [facility] Comment on above: Postnasal drip Start: 06-24-2024 End: 06-24-2024 Refill Ulices Hamilton Amber DO Work Phone: [facility] Comment on above: Primary osteoarthrit is involving multiple joints Start: 06-18-2024 End: 06-18-2024 ambulatory GUNJAN GODOY Facility:[facility] Start: 06-18-2024 End: 06-18-[address] Work Phone: Nutrition Therapy Start: 06-18-2024 End: 06-18-[address] therapy Zoya Hillman RD Work Phone: Nutrition Therapy Comment on above: Nutrition Telephone Start: 06-15-2024 End: 06-15-2024 Office outpatient visit 25 minutes Ulices Clark DO Work Phone: [facility] Comment on above: Primary osteoarthrit is involving multiple joints (Primary Dx); Anxiety and depression; History of aspiration pneumonia Start: 06-15-2024 End: 06-15-2024 ambulatory ULICES CLARK [facility] Start: 06-08-2024 End: 08-08-2024 Follow-up encounter Omer Khan RN [facility] Emergency Department Comment on above: Blood Culture #1, Bl ood Culture #2 Start: 06-08-2024 ambulatory ULICES CLARK [facility] Ambulatory Start: 06-07-2024 End: 06-09-2024 Evaluation and management of inpatient [facility] Work Phone: [facility] Start: 06-07-2024 End: 06-07-2024 Emergency department patient visit ULICES CLARK [facility] Start: 06-01-2024 End: 06-01-2024 Office outpatient visit 25 minutes Vasu Jaimes DO Work Phone: [facility] Comment on above: Crohn's colitis, oth er complication (Multi) (Primary Dx); S/P percutaneous endoscopic gastrostomy (PEG) tube placement (Multi); History of throat cancer; Pharyngoesophageal dysphagia; Mild protein-calorie malnutrition (Multi) Start: 06-01-2024 End: 06-01-2024 ambulatory [facility] Ambulatory Start: 05-26-2024 End: 05-26-2024 Subsequent hospital visit by physician Vasu Jaimes DO Work Phone: [facility] Comment on above: S/P percutaneous end oscopic gastrostomy (PEG) tube placement (Multi); Pharyngoesophageal dysphagia; History of throat cancer Start: 05-26-2024 End: 05-26-2024 ambulatory [facility] Start: 05-22-2024 End: 05-22-2024 Emergency department patient visit ULICES CLARK [facility] Comment on above: Disorder of stoma (P rimary Dx); Encounter for care related to feeding tube Start: 05-20-2024 End: 05-20-2024 Documentation procedure Ulices Clark DO Work Phone: [facility] Comment on above: Anticoaglation Stop Request Start: 05-13-2024 ambulatory ULICES CLARK [facility] Ambulatory Start: 05-05-2024 End: 05-05-2024 Emergency department patient visit ULICES CLARK [facility] Start: 05-03-2024 End: 07-03-2024 Refill Ulices Clark DO Work Phone: [facility] Comment on above: Benign prostatic hyp erplasia with urinary retention (Primary Dx) POC CBC and Differen tial Start: 05-03-2024 End: 05-03-2024 Emergency department patient visit ULICES CLARK [facility] Start: 04-26-2024 End: 04-26-2024 Refill Ulices Clark DO Work Phone: [facility] Start: 04-22-2024 End: 04-22-2024 Office outpatient visit 25 minutes Yobani Bojorquez MD Work Phone: [facility] Comment on above: Chronic obstructive pulmonary disease, unspecified COPD type (Primary Dx); Centrilobular emphysema; Chronic respiratory failure with hypoxia, on home oxygen therapy; Malignant neoplasm of base of tongue; Single subsegmental pulmonary embolism without acute cor pulmonale Start: 04-22-2024 ambulatory [facility] Start: 04-01-2024 End: 04-01-[address] Work Phone: Nutrition Therapy Start: 04-01-2024 End: 04-01-2024 Nutrition therapy Zoya Hillman RD Work Phone: Nutrition Therapy Comment on above: Nutrition Telephone Start: 04-01-2024 ambulatory [facility] Start: 04-01-2024 End: 04-01-2024 Subsequent hospital visit by physician Yobani Bojorquez MD Work Phone: [facility] CT Scan Comment on above: Arrived Start: 04-01-2024 End: 04-01-2024 ambulatory GUNJAN FUCHS [facility] Facility:[facility] Start: 03-22-2024 End: 03-22-2024 ambulatory [facility] Ambulatory Start: 03-17-2024 End: 03-17-2024 Office outpatient visit 25 minutes Ulices Clark DO Work Phone: [facility] Comment on above: Upper respiratory tr act infection, unspecified type (Primary Dx); Anxiety and depression; Edema of both lower extremities; Left inguinal hernia; S/P percutaneous endoscopic gastrostomy (PEG) tube placement (HCC) Start: 03-17-2024 End: 03-17-2024 ambulatory ULICES CLARK [facility] Start: 03-09-2024 ambulatory ULICES CLARK [facility] Ambulatory Start: 02-24-2024 End: 02-24-2024 Telephone encounter Ulices Clark DO Work Phone: [facility] Comment on above: Medication Refill Start: 02-23-2024 End: 02-23-2024 Refill Ulices Clark DO Work Phone: [facility] Start: 01-27-2024 End: 01-27-2024 Telephone encounter Monica Diaz RN Hematology/Oncology Comment on above: Results (Called and spoke with Christa, she is aware and denies any questions at this time. AA) Start: 01-26-2024 End: 01-26-2024 ambulatory Sushma Andra Brandon Work Phone: Hematology/Oncology Comment on above: Lung nodules (Primar y Dx); Aspiration into lower respiratory tract, subsequent encounter; History of tongue cancer Start: 01-26-2024 End: 01-26-2024 Patient encounter procedure Sushmabarbara Brandon Work Phone: Hematology/Oncology Start: 01-22-2024 End: 01-22-2024 Telephone encounter Sushma Brandon Work Phone: Hematology/Oncology Comment on above: Orders Start: 01-22-2024 End: 01-22-2024 Subsequent hospital visit by physician Arrival Time Radiology Work Phone: Radiology Pet CT Comment on above: History of tongue ca ncer [Z85.810] Start: 01-22-2024 End: 01-22-2024 ambulatory GUNJAN GODOY Facility:[facility] Start: 01-21-2024 End: 01-21-2024 Telephone encounter Shakir Arcos RN Hematology/Oncology Comment on above: Orders Start: 01-21-2024 End: 01-21-2024 Office outpatient visit 15 minutes Tess Flores DO Work Phone: [facility] Comment on above: Left inguinal hernia (Primary Dx) Start: 01-21-2024 End: 01-21-2024 ambulatory ULICES Hamitlon AMBER [facility] Start: 01-13-2024 End: 01-13-2024 Office outpatient visit 15 minutes Ulices Clark DO Work Phone: [facility] Comment on above: Pulmonary embolus, r ight (HCC) (Primary Dx); Pulmonary lesion, right; Anxiety and depression Start: 01-13-2024 End: 01-13-2024 ambulatory ULICES RSumeet AMBER [facility] Start: 01-02-2024 End: 01-02-[address] Work Phone: Nutrition Therapy Start: 01-02-2024 End: 01-02-2024 Nutrition therapy Zoya Hillman MARTINE Work Phone: Nutrition Therapy Comment on above: Nutrition Telephone Start: 01-02-2024 ambulatory ULICES CLARK [facility] Ambulatory Start: 12-31-2023 End: 12-31-2023 Office outpatient visit 40 minutes Yobani Bojorquez MD Work Phone: [facility] Comment on above: Single subsegmental pulmonary embolism without acute cor pulmonale (Primary Dx); Mass of pleura; Lung nodule; Multiple lung nodules on CT; Multifocal pneumonia; Malignant neoplasm of base of tongue; Chronic obstructive pulmonary disease, unspecified COPD type; Centrilobular emphysema; S/P percutaneous endoscopic gastrostomy (PEG) tube placement; Chronic respiratory failure with hypoxia, on home oxygen therapy Start: 12-31-2023 ambulatory [facility] Start: 12-30-2023 End: 01-01-2024 Refill Ulices Clark DO Work Phone: [facility] Start: 12-22-2023 End: 12-25-2023 Evaluation and management of inpatient Generic [facility] Work Phone: [facility] Start: 12-18-2023 End: 12-18-2023 Office outpatient new 30 minutes Ulices Clark DO Work Phone: [facility] Comment on above: Left inguinal hernia (Primary Dx); Venous insufficiency Start: 12-17-2023 End: 12-17-2023 Office outpatient visit 25 minutes Ulices Clark DO Work Phone: [facility] Comment on above: Left inguinal hernia (Primary Dx); Difficulty sleeping; Anxiety and depression; Constipation, unspecified constipation type Start: 12-15-2023 End: 12-15-2023 Orders Only Ulices Clark DO Work Phone: [facility] Comment on above: Anxiety and depressi on (Primary Dx) Start: 12-11-2023 End: 12-11-2023 Telephone encounter Sushma Brandon Work Phone: Hematology/Oncology Comment on above: Silviculturist - O ther ([employer] orders) Start: 12-09-2023 End: 12-09-2023 Telephone encounter Zoya Hillman RD Work Phone: Nutrition Therapy Start: 11-27-2023 End: 11-27-[address] Work Phone: Nutrition Therapy Start: 11-27-2023 End: 12-01-2023 Nutrition therapy Zoya Hillman RD Work Phone: Nutrition Therapy Comment on above: Nutrition Telephone Start: 11-15-2023 End: 11-15-2023 Emergency department patient visit Ernestina Krishnamurthy DO Work Phone: [facility] Comment on above: Generalized weakness (Primary Dx); Nausea and vomiting, unspecified vomiting type Start: 11-11-2023 End: 11-11-2023 Subsequent hospital visit by physician Vasu Jaimes DO Work Phone: [facility] Comment on above: S/P percutaneous end oscopic gastrostomy (PEG) tube placement (Multi) Start: 11-11-2023 End: 11-11-2023 ambulatory VASU JAIMES [facility] Start: 11-05-2023 End: 11-05-[address] Work Phone: Nutrition Therapy Start: 11-05-2023 End: 11-05-2023 Nutrition therapy Zoya Hillman RD Work Phone: Nutrition Therapy Comment on above: Nutrition Counseling Start: 10-31-2023 End: 10-31-2023 Office outpatient visit 25 minutes Vasu Jaimes DO Work Phone: [facility] Comment on above: Nausea and vomiting, unspecified vomiting type (Primary Dx); Pharyngoesophageal dysphagia; S/P percutaneous endoscopic gastrostomy (PEG) tube placement (Multi); History of throat cancer Start: 10-31-2023 End: 10-31-2023 ambulatory [facility] Ambulatory Start: 10-27-2023 End: 10-27-[address] Work Phone: Nutrition Therapy Start: 10-27-2023 End: 10-27-2023 Nutrition therapy Zoya Hillman RD Work Phone: Nutrition Therapy Comment on above: Nutrition Telephone Start: 10-23-2023 End: 10-23-2023 Office outpatient visit 25 minutes Ulices Clark DO Work Phone: [facility] Comment on above: Vomiting, unspecifie d vomiting type, unspecified whether nausea present (Primary Dx); S/P percutaneous endoscopic gastrostomy (PEG) tube placement (HCC); Oropharyngeal dysphagia; At low risk for fall Start: 09-25-2023 End: 09-25-2023 Office outpatient new 60 minutes Gavin Hammonds CNP Work Phone: [facility] Comment on above: Anxiety and depressi on (Primary Dx); Gastroesophageal reflux disease, unspecified whether esophagitis present; Hyperlipidemia, unspecified hyperlipidemia type; History of tongue cancer; Pharyngoesophageal dysphagia; Hypertension, unspecified type; Xerostomia due to radiotherapy; Centrilobular emphysema (HCC); Edema of both lower extremities; S/P percutaneous endoscopic gastrostomy (PEG) tube placement (HCC); Migraine without aura and without status migrainosus, not intractable Start: 09-01-2023 End: 09-01-2023 Office outpatient visit 15 minutes Gunjan Godoy MD Work Phone: [facility] Comment on above: Benign hypertension (Primary Dx); Localized edema Start: 08-26-2023 [facility] Start: 08-26-2023 End: 08-26-2023 Office outpatient visit 40 minutes Yobani Bojorquez MD Work Phone: [facility] Comment on above: Chronic obstructive pulmonary disease, unspecified COPD type (Primary Dx); Centrilobular emphysema; Interstitial lung disease; Malignant neoplasm of base of tongue; Multiple lung nodules on CT; Mass of pleura; Aspiration pneumonia of both lower lobes, unspecified aspiration pneumonia type; Reactive airway disease without complication, unspecified asthma severity, unspecified whether persistent Start: 08-26-2023 ambulatory YOBANI BOJORQUEZ [facility] Start: 08-22-2023 End: 08-22-2023 Subsequent hospital visit by physician Yobani Bojorquez MD Work Phone: [facility] Comment on above: Arrived Start: 08-07-2023 End: 08-07-2023 Office outpatient visit 15 minutes Gunjan Godoy MD Work Phone: [facility] Comment on above: Fever, unspecified f ever cause (Primary Dx); Localized edema Start: 08-01-2023 End: 08-01-[address] Work Phone: Nutrition Therapy Start: 08-01-2023 End: 08-01-2023 Nutrition therapy Zoya Hillman RD Work Phone: Nutrition Therapy Comment on above: Nutrition Counseling Start: 07-23-2023 End: 07-23-2023 ambulatory Sushma Brandon Work Phone: Hematology/Oncology Comment on above: History of tongue ca ncer (Primary Dx); Lung nodules; Aspiration into lower respiratory tract, subsequent encounter; Renal cyst Start: 07-23-2023 End: 07-23-2023 Patient encounter procedure Sushma Brandon Work Phone: Hematology/Oncology Start: 07-18-2023 Telephone encounter Monica Diaz RN H ematology/Oncology Comment on above: Nurse Triage Call (v omiting) Start: 07-18-2023 End: 07-18-2023 Subsequent hospital visit by physician Radio [facility] Work Phone: Radiology Pet CT Comment on above: Aspiration into lowe r respiratory tract, subsequent encounter [T17.800D] Start: 07-17-2023 End: 07-17-[address] Work Phone: Nutrition Therapy Start: 07-17-2023 End: 07-17-2023 Nutrition therapy Zoya Hillman RD Work Phone: Nutrition Therapy Comment on above: Nutrition Telephone Start: 07-10-2023 End: 07-10-[address] Work Phone: Nutrition Therapy Start: 07-10-2023 End: 07-10-2023 Nutrition therapy Zoya Hillman RD Work Phone: Nutrition Therapy Comment on above: Nutrition Telephone Start: 07-08-2023 End: 07-08-2023 Patient encounter procedure Marium Talaverasamuel [employer]AX[employer] INSTRUCTOR.ROLLER ENGRAVER Work Phone: Gastroenterology Comment on above: Complication of feed ing tube (HCC) (Primary Dx) Aspiration into lowe r respiratory tract, subsequent encounter; History of tongue cancer; Severe protein-calorie malnutrition (HCC) Start: 07-03-2023 End: 07-03-2023 Social Work Mable SIVLER Work Phone: Hematology/Oncology Comment on above: Nutrition Assessment Start: 06-23-2023 End: 06-23-[address] Work Phone: Nutrition Therapy Comment on above: Aspiration into lowe r respiratory tract, subsequent encounter (Primary Dx); History of tongue cancer Start: 06-23-2023 End: 06-23-2023 Nutrition therapy Zoya Hillman RD Work Phone: Nutrition Therapy Comment on above: Nutrition Assessment Start: 06-23-2023 End: 06-23-2023 Patient encounter procedure Sushma Brandon Work Phone: Hematology/Oncology Start: 06-20-2023 Telephone encounter Monica Diaz RN H ematology/Oncology Comment on above: Appointment (Ok to simon irizarry ct and labs today. Aa) Start: 06-20-2023 End: 06-20-2023 Office outpatient visit 25 minutes Gunjan Godoy MD Work Phone: [facility] Comment on above: Hyperlipidemia, unsp ecified hyperlipidemia type; Localized edema Start: 06-14-2023 End: 06-17-2023 Evaluation and management of inpatient Eliseo Patton MD Work Phone: [facility] Comment on above: Aspiration pneumonia of both lungs Start: 06-11-2023 End: 06-11-2023 Patient encounter procedure Naida Phillips MD Work Phone: Ophthalmology Comment on above: Epiretinal membrane (ERM) of left eye (Primary Dx); Vitelliform lesion of macula, Left eye; Pseudophakia of both eyes; Essential hypertension Start: 06-06-2023 End: 06-06-[address] Work Phone: [facility] Start: 06-06-2023 End: 06-06-2023 Nutrition therapy Zoya Hillman RD Work Phone: Nutrition Therapy Comment on above: Nutrition Telephone Start: 06-04-2023 End: 06-04-2023 ambulatory Linda Jean Baptiste APRN.PROJECT FACILITATOR Work Phone: Hematology/Oncology Comment on above: History of tongue ca ncer (Primary Dx); Aspiration into lower respiratory tract, subsequent encounter; Erythrocytosis; S/P percutaneous endoscopic gastrostomy (PEG) tube placement ([facility]) Start: 06-04-2023 End: 06-04-2023 Patient encounter procedure Linda Jean Baptiste APRN.PROJECT FACILITATOR Work Phone: [facility] Start: 06-04-2023 End: 06-04-2023 Office outpatient new 60 minutes Yobani Bojorquez MD Work Phone: [facility] Comment on above: Chronic obstructive pulmonary disease, unspecified COPD type (Primary Dx); Centrilobular emphysema; Interstitial lung disease; Malignant neoplasm of base of tongue; Multiple lung nodules on CT; Reactive airway disease without complication, unspecified asthma severity, unspecified whether persistent Start: 06-04-2023 ambulatory YOBANI BOJORQUEZ [facility] Start: 06-02-2023 End: 06-02-2023 Office outpatient visit 15 minutes Josi Naylor CNP Work Phone: [facility] Comment on above: Hospital discharge f ollow-up (Primary Dx); Testicular hypofunction Start: 05-29-2023 End: 05-29-2023 ambulatory Zoya Bansalfreedom FARLEY Work Phone: [facility] Start: 05-29-2023 End: 05-29-2023 Nutrition therapy Zoya Bansalfreedom FARLEY Work Phone: Nutrition Therapy Comment on above: Nutrition Assessment Start: 05-24-2023 End: 05-26-2023 Emergency department patient visit Juan Gomez MD Work Phone: [facility] 2nd Floor Comment on above: Pneumonia Start: 05-21-2023 Documentation procedure Alfreda Briggs ssechuyita RD [facility] Outpatient Oncology Nutrition/Dietitian Start: 05-20-2023 Telephone encounter Tasha jay MD Work Phone: Gastroenterology Comment on above: Patient Update Start: 05-19-2023 End: 05-19-2023 Office outpatient visit 40 minutes Jim Holder MD Work Phone: [facility] [place] Comment on above: Failure to thrive in adult (Primary Dx); History of tongue cancer; Pharyngoesophageal dysphagia; Xerostomia due to radiotherapy Start: 05-09-2023 End: 05-11-2023 Evaluation and management of inpatient Chaka Campos MD Work Phone: [facility] Comment on above: Multifocal pneumonia Start: 04-19-2023 End: 04-20-2023 Subsequent hospital visit by physician Burton George MD Work Phone: [facility] 2nd Floor Comment on above: Aspiration into airw ay Start: 04-07-2023 End: 04-08-2023 Subsequent hospital visit by physician Arley Godoy MD Work Phone: [facility] Comment on above: S/P percutaneous end oscopic gastrostomy (PEG) tube placement Start: 04-07-2023 End: 04-08-2023 ambulatory KIRK Smith [facility] Start: 04-02-2023 ambulatory Arley Smith [facility] Start: 04-02-2023 Encounter for other preprocedural examination Arley GODOY [facility] Start: 03-21-2023 End: 03-21-2023 ambulatory Sushma Brandon Work Phone: Hematology/Oncology Comment on above: Lung nodules (Primar y Dx); Multiple lung nodules on CT; History of head and neck cancer Start: 03-21-2023 End: 03-21-2023 Patient encounter procedure Sushma Brandon Work Phone: [facility] Start: 03-18-2023 End: 03-18-2023 Office outpatient new 60 minutes Arley Godoy MD Work Phone: [facility] Comment on above: Severe protein-calor ie malnutrition (Primary Dx) Start: 03-03-2023 End: 03-04-2023 Emergency department patient visit Galen Miller MD Work Phone: [facility] ICU Comment on above: Pneumonia Start: 02-26-2023 End: 02-26-[address] [facility] Start: 02-26-2023 End: 02-26-[address] Nutrition therapy Zoya Hillman RD Work Phone: Nutrition Therapy Comment on above: Nutrition Telephone Start: 02-24-2023 End: 02-24-2023 Subsequent hospital visit by physician Radio [facility] Work Phone: Radiology Pet CT Comment on above: Malignant neoplasm o f base of tongue (HCC) [C01] Start: 02-21-2023 End: 02-21-2023 Office outpatient visit 25 minutes Gunjan Godoy MD Work Phone: [facility] Comment on above: Hyperlipidemia, unsp ecified hyperlipidemia type (Primary Dx); Severe protein-calorie malnutrition; Prostate cancer screening; Benign prostatic hyperplasia with lower urinary tract symptoms, symptom details unspecified; Testicular hypofunction; Dysphagia, unspecified type Start: 02-18-2023 End: 02-18-2023 Subsequent hospital visit by physician Arrival Time Radiology Work Phone: Radiology [facility] Comment on above: Lung nodules [R91.8] Start: 02-05-2023 End: 02-05-2023 Subsequent hospital visit by physician Radio [facility] Work Phone: Radiology Pet CT Comment on above: Multiple lung nodule s on CT [R91.8] Start: 11-27-2022 End: 11-27-2022 ambulatory Linda Jean Baptiste APRN.PROJECT FACILITATOR Work Phone: Hematology/Oncology Comment on above: Former smoker (Prima ry Dx) Start: 11-27-2022 End: 11-27-2022 Patient encounter procedure Linda Jean Baptiste APRN.PROJECT FACILITATOR Work Phone: [facility] Start: 11-27-2022 End: 11-27-2022 Subsequent hospital visit by physician Radio [facility] Work Phone: Radiology Pet CT Comment on above: Former smoker [Z87.8 91] Start: 10-09-2022 End: 10-09-2022 ambulatory Chair [address] Work Phone: Hematology/Oncology Comment on above: Erythrocytosis (Prim carrol Dx) Start: 08-29-2022 End: 08-29-2022 ambulatory Jim Holder MD Work Phone: [facility] Speech Therapy Comment on above: Oropharyngeal dyspha eboni (Primary Dx) Start: 08-22-2022 End: 08-22-2022 ambulatory Jim Holder MD Work Phone: [facility] Speech Therapy Comment on above: Oropharyngeal dyspha eboni (Primary Dx) Start: 08-19-2022 End: 08-19-2022 Office outpatient visit 15 minutes Jmi Holder MD Work Phone: [facility] Comment on above: Pharyngoesophageal d ysphagia (Primary Dx); History of tongue cancer Start: 08-09-2022 End: 08-09-2022 ambulatory Jim Holder MD Work Phone: [facility] Speech Therapy Comment on above: Pharyngoesophageal d ysphagia; Oropharyngeal dysphagia Start: 07-23-2022 End: 07-23-2022 Office outpatient visit 25 minutes Jim Holder MD Work Phone: [facility] [place] Comment on above: Migraine without aur a and without status migrainosus, not intractable (Primary Dx); Xerostomia due to radiotherapy; Pharyngoesophageal dysphagia; History of tongue cancer Start: 06-10-2022 Telephone encounter Linda Macdonald APRN.CNP Work Phone: Laboratory Medicine Comment on above: Lab Orders Start: 06-10-2022 End: 06-10-2022 ambulatory Tad Madison MD Work Phone: Hematology/Oncology Comment on above: Erythrocytosis (Prim carrol Dx) Start: 06-10-2022 End: 06-10-2022 Patient encounter procedure Tad Madison MD Work Phone: [facility] Start: 06-05-2022 End: 06-05-2022 Patient encounter procedure Naida Phillips MD Work Phone: Ophthalmology Comment on above: Epiretinal membrane (ERM) of left eye (Primary Dx); Vitelliform lesion of macula/both eyes; Pseudophakia of both eyes; Essential hypertension Start: 04-18-2022 Telephone encounter Tad Madison MD Work Phone: Hematology/Oncology Comment on above: Results, Lab Start: 03-15-2022 End: 03-15-2022 ambulatory Chair [address] Work Phone: Hematology/Oncology Comment on above: Erythrocytosis (Prim carrol Dx) Start: 02-07-2022 End: 02-07-2022 Office outpatient visit 25 minutes Richy Emerson MD Work Phone: [facility] Comment on above: Prediabetes (Primary Dx); Benign prostatic hyperplasia with lower urinary tract symptoms, symptom details unspecified; Gastroesophageal reflux disease without esophagitis; Hyperlipidemia, unspecified hyperlipidemia type; Testicular hypofunction; Arthritis; Benign hypertension Start: 01-08-2022 Telephone encounter Shakir york RN Hematology/Oncology Comment on above: Nurse Triage Call Start: 12-13-2021 End: 12-13-2021 ambulatory Tad Madison MD Work Phone: Hematology/Oncology Comment on above: Erythrocytosis (Prim carrol Dx); 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) Start: 12-13-2021 End: 12-13-2021 Patient encounter procedure Tad Madison MD Work Phone: [facility] Start: 12-04-2021 End: 12-04-2021 Office outpatient visit 15 minutes Richy Emerson MD Work Phone: [facility] Comment on above: Bronchitis (Primary Dx) Start: 11-28-2021 End: 11-28-2021 Patient encounter procedure Naida Phillips MD Work Phone: Ophthalmology Comment on above: Epiretinal membrane (ERM) of left eye (Primary Dx); 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; Vitelliform lesion of macula; Pseudophakia of both eyes; Essential hypertension Start: 11-22-2021 Telephone encounter Tad Madison MD Work Phone: Hematology/Oncology Comment on above: Orders Start: 11-16-2021 ambulatory Linda flores BUS [employer]OL[employer] TAXI INSTRUCTOR.PROJECT FACILITATOR Work Phone: Hematology/Oncology Start: 11-12-2021 End: 11-12-2021 ambulatory Linda Jean Baptiste BUS TROLLEY AND TAXI INSTRUCTOR.PROJECT FACILITATOR Work Phone: Hematology/Oncology Comment on above: Former smoker (Prima ry Dx) Start: 11-12-2021 End: 11-12-2021 Patient encounter procedure Linda Jean Baptiste BUS TROLLEY AND TAXI INSTRUCTOR.PROJECT FACILITATOR Work Phone: [facility] Start: 11-08-2021 End: 11-08-2021 Office outpatient visit 15 minutes Richy Emerson MD Work Phone: [facility] Comment on above: Arthritis; Testicular hypofunction Start: 07-18-2021 End: 07-18-2021 Office outpatient visit 25 minutes Richy Emerson MD Work Phone: [facility] Comment on above: Gastroesophageal ref lux disease without esophagitis (Primary Dx); Benign prostatic hyperplasia with lower urinary tract symptoms, symptom details unspecified; Hyperlipidemia, unspecified hyperlipidemia type; Testicular hypofunction; Arthritis; Benign hypertension Start: 05-25-2021 Chart Update Richy chan Work Phone[facility] Work Phone: Start: 05-15-2021 End: 05-15-2021 ambulatory Sushma Brandon Work Phone: Hematology/Oncology Comment on above: Secondary polycythem ia (Primary Dx); Lung nodules Erythrocytosis (Prim carrol Dx); 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) Start: 05-15-2021 End: 05-15-2021 Patient encounter procedure Sushma Brandon Work Phone: [facility] Start: 05-14-2021 Telephone encounter Natalia fernandez RN Work Phone: Hematology/Oncology Comment on above: Care Coordination (P er order of Dr. Brandon, CBC and CMP results from 05-14-[address] Emerson through the [employer] system. Patient reports he is taking testosterone at this time.) Start: 05-14-2021 End: 05-14-2021 Subsequent hospital visit by physician Radio [facility] Work Phone: Radiology Pet CT Comment on above: Lung nodules [R91.8] Start: 04-18-2021 End: 04-18-2021 Office outpatient visit 15 minutes Richy Emerson MD Work Phone: [facility] Comment on above: Arthritis Start: 04-11-2021 Chart Update Richy chan Work Phone: [facility] Work Phone: Start: 04-05-2021 End: 04-07-2021 Evaluation and management of inpatient Glenys Calloway [facility] 319 01 Start: 02-03-2018 End: 02-03-2018 Refill Richy Emerson Work Phone: [facility] Start: 01-01-2018 End: 01-01-2018 Patient encounter Other Other [facility] Start: 01-01-2018 End: 01-01-2018 Office outpatient visit 25 minutes Rcihy Emerson Work Phone: [facility] Comment on above: Lipoma of left lower extremity (Primary Dx); Testicular hypofunction; Arthritis Procedures Date Procedure Procedure Detail Performing Clinician Start: 12-18-2024 Glucose measurement Generic [facility] Work Phone: Start: 12-18-2024 Glucose measurement Generic [facility] Work Phone: Start: 12-18-2024 Basic metabolic panel calcium total Same chuyita Banks MD Work Phone: Start: 12-18-2024 Complete blood count with white cell differential, manual Larry Banks MD Work Phone: Start: 12-18-2024 Drug screen quantitative vancomycin Will lashonda Frederick [facility],PharmD Start: 12-17-2024 Glucose measurement Generic [facility] Work Phone: Start: 12-17-2024 Glucose measurement Generic [facility] Work Phone: Start: 12-17-2024 Glucose measurement Generic [facility] Work Phone: Start: 12-17-2024 Glucose measurement Generic [facility] Work Phone: Start: 12-17-2024 Basic metabolic panel calcium total Same chuyita Banks MD Work Phone: Start: 12-17-2024 Complete blood count with white cell differential, manual Larry Banks MD Work Phone: Start: 12-16-2024 Glucose measurement Generic [facility] Work Phone: Start: 12-16-2024 Glucose measurement Generic [facility] Work Phone: Start: 12-16-2024 Procalcitonin (pct) Maria G Mehta MD Work Phone: Start: 12-16-2024 Glucose measurement Generic [facility] Work Phone: Start: 12-16-2024 Smr prim src gram/giemsa stain bct fungi/cell Sivakumar Arias DO Work Phone: Start: 12-16-2024 Assay of troponin quantitative Sivakumar Rodas is DO Work Phone: Start: 12-16-2024 C-reactive protein Maria G Mehta MD Work Phone: Start: 12-16-2024 Assay of magnesium Sivakumar Arias DO Work Phone: Start: 12-16-2024 Glucose measurement Generic [facility] Work Phone: Start: 12-16-2024 Glucose measurement Generic [facility] Work Phone: Start: 12-16-2024 Culture bacterial quanttative colony count urine Larry Banks MD Work Phone: Start: 12-16-2024 Basic metabolic panel calcium total Same chuyita Banks MD Work Phone: Start: 12-16-2024 Complete blood count with white cell differential, manual Larry Banks MD Work Phone: Start: 12-16-2024 Electrocardiogram Ifeanyi Checohumberto DO Work Phone: Start: 12-16-2024 Glucose measurement Larry Banks MD Work Phone: Start: 12-15-2024 Radiologic exam chest single view Katharine Scott DO Work Phone: Start: 12-15-2024 Influenza virus A and B RNA and SARS-CoV-2 (COVID-19) N gene panel - Respiratory specimen by ROBERTA with probe detection Ifeanyi Scott DO Work Phone: Start: 12-15-2024 Gases blood ph direct gael xcpt pulse oximitry Ifeanyi Scott DO Work Phone: Start: 0 End: 12-15-2024 Culture bacterial blood aerobic w/id isolates Ifeanyi Scott DO Work Phone: Start: 12-15-2024 Complete blood count with white cell differential, manual Ifeanyi Scott DO Work Phone: Start: 12-15-2024 Comprehensive metabolic panel Ifeanyi pabon DO Work Phone: Start: 12-15-2024 LAVENDER TOP Ifeanyi Scott DO Work Phone: Start: 12-15-2024 LIGHT BLUE TOP Ifeanyi Scott DO Work Phone: Start: 12-15-2024 MINT GREEN TOP Ifeanyi Scott DO Work Phone: Start: 12-15-2024 OBTAIN VENOUS BLOOD GASES AND PERFORM Ifeanyi Scott DO Work Phone: Start: 12-15-2024 RAINBOW DRAW Ifeanyi Scott DO Work Phone: Start: 12-15-2024 Ecg routine ecg w/least 12 lds w/i&r Ifeanyi Scott DO Work Phone: Start: 11-22-2024 Complete blood count with white cell differential, manual Sivakumar Arias DO Work Phone: Start: 11-22-2024 Comprehensive metabolic panel Sivakumar Kendra s DO Work Phone: Start: 11-22-2024 Drug screen quantitative vancomycin Tad y Geris DO Work Phone: Start: 11-21-2024 Complete blood count with white cell differential, manual Sivakumar Geris DO Work Phone: Start: 11-21-2024 Comprehensive metabolic panel Sivakumar Kendra s DO Work Phone: Start: 11-20-2024 Glucose measurement Generic [facility] Work Phone: Start: 11-20-2024 Glucose measurement Generic [facility] Work Phone: Start: 11-20-2024 Glucose measurement Generic [facility] Work Phone: Start: 11-20-2024 Glucose measurement Generic [facility] Work Phone: Start: 11-20-2024 Glucose measurement Generic [facility] Work Phone: Start: 11-20-2024 Complete blood count with white cell differential, manual Sivakumar Arias DO Work Phone: Start: 11-20-2024 Comprehensive metabolic panel Sivakumar chan DO Work Phone: Start: 11-20-2024 Glucose measurement Generic [facility] Work Phone: Start: 11-19-2024 Glucose measurement Generic [facility] Work Phone: Start: 11-19-2024 Glucose measurement Generic [facility] Work Phone: Start: 11-19-2024 Glucose measurement Generic [facility] Work Phone: Start: 11-19-2024 Glucose measurement Generic [facility] Work Phone: Start: 11-19-2024 Glucose measurement Generic [facility] Work Phone: Start: 11-19-2024 Potassium serum plasma/whole blood Jesus Alberto Doshi PROJECT FACILITATOR Work Phone: Start: 11-19-2024 Complete blood count with white cell differential, manual Sivakumar Arias DO Work Phone: Start: 11-19-2024 Comprehensive metabolic panel Sivakumar chan DO Work Phone: Start: 11-19-2024 Glucose measurement Generic [facility] Work Phone: Start: 11-18-2024 Glucose measurement Generic [facility] Work Phone: Start: 11-18-2024 Glucose measurement Generic [facility] Work Phone: Start: 11-18-2024 Glucose measurement Generic [facility] Work Phone: Start: 11-18-2024 Smr prim src gram/giemsa stain bct fungi/cell Sivakumar Arias DO Work Phone: Start: 11-18-2024 Glucose measurement Generic [facility] Work Phone: Start: 11-18-2024 Iadna s aureus methicillin resist amp probe tq Sivakumar Arias DO Work Phone: Start: 11-18-2024 Glucose measurement Generic [facility] Work Phone: Start: 11-18-2024 Basic metabolic panel calcium total Caleb Derrick Nicolas MD Work Phone: Start: 11-18-2024 Culture bacterial quanttative colony count urine Antonio Fontaine DO Work Phone: Start: 11-17-2024 Assay of lactate Antonio Fontaine DO Work Phone: Start: 11-17-2024 Radiologic exam chest single view Glen Lance MD Work Phone: Start: 11-17-2024 Insj non-tunneled central venous cath age 5 yr/> Antonio Fontaine DO Work Phone: Start: 11-17-2024 Electrocardiogram Lisa Lance MD Work Phone: Start: 11-17-2024 Ct angiography chest w/contrast/noncontrast Antonio Fontaine DO Work Phone: Start: 11-17-2024 Assay of troponin quantitative Antonio Fontaine DO Work Phone: Start: 11-17-2024 Influenza virus A and B RNA and SARS-CoV-2 (COVID-19) N gene panel - Respiratory specimen by ROBERTA with probe detection Antonio Fontaine DO Work Phone: Start: 11-17-2024 Polymerase chain reaction analysis Sivakumar Arias DO Work Phone: Start: 11-17-2024 Gases blood ph direct gael xcpt pulse oximitry Antonio Saunders Zhen DO Work Phone: Start: 11-17-2024 Ecg routine ecg w/least 12 lds w/i&r Antonio Eugenio Fontaine DO Work Phone: Start: 11-17-2024 Radiologic exam chest single view Shashank t Eugenio Fontaine DO Work Phone: Start: 11-17-2024 OBTAIN VENOUS BLOOD GASES AND PERFORM Antonio Fontaine DO Work Phone: Start: 11-17-2024 Complete blood count with white cell differential, manual Antonio Fontaine DO Work Phone: Start: 11-17-2024 Comprehensive metabolic panel Antonio Fontaine DO Work Phone: Start: 11-17-2024 Culture bacterial blood aerobic w/id isolates Antonio Fontaine DO Work Phone: Start: 11-17-2024 DAMON TOP Antonio Eugenio Fontaine DO Work Phone: Start: 11-17-2024 Hepatic function panel Antonio Fontaine DO Work Phone: Start: 11-17-2024 LAVENDER TOP Antoniohiwot Fontaine DO Work Phone: Start: 11-17-2024 LIGHT BLUE TOP Antoniohiwot Fontaine DO Work Phone: Start: 11-17-2024 MINT GREEN TOP Antoniohiwot Fontaine DO Work Phone: Start: 11-17-2024 RAINBOW DRAW Antoniohiwot Fontaine DO Work Phone: Start: 09-29-2024 Follow-up visit Follow-up VASU JAIMES Start: 09-14-2024 Comprehensive metabolic panel Ulices R. P rimm DO Work Phone: Start: 07-31-2024 Renal function panel Tory Magi Emery [employer]-PROJECT FACILITATOR Work Phone: Start: 07-31-2024 Radiologic exam chest single view Burton George MD Work Phone: Start: 07-31-2024 Complete blood count with white cell differential, automated Tory Magi Emery [employer]-PROJECT FACILITATOR Work Phone: Start: 07-31-2024 Lipid panel Tory J Yuly [employer]-PROJECT FACILITATOR Work Phone: Start: 07-31-2024 Renal function panel Tory J Yuly [employer]-PROJECT FACILITATOR Work Phone: Start: 07-31-2024 Lipid 1996 panel - Serum or Plasma Stevenson Andrews DO Work Phone: Start: 07-30-2024 Gluc bld gluc mntr dev cleared fda spec home use Burton George MD Work Phone: Start: 07-30-2024 Assay of troponin quantitative Tory Magi Emery [employer]-PROJECT FACILITATOR Work Phone: Start: 07-30-2024 Gluc bld gluc mntr dev cleared fda spec home use Burton George MD Work Phone: Start: 07-30-2024 Assay of troponin quantitative Tory Magi Emery [employer]CTOR-PROJECT FACILITATOR Work Phone: Start: 07-30-2024 Gluc bld gluc mntr dev cleared fda spec home use Stevenson Andrews DO Work Phone: Start: 07-30-2024 Echo transthorc r-t 2d w/wo m-mode rec f-up/lmtd Stevenson A Foskey DO Work Phone: Start: 07-30-2024 Assay of lactate Stevenson A Foskey DO Work Phone: Start: 07-30-2024 Lipid panel Tory J Yuly [employer]-PROJECT FACILITATOR Work Phone: Start: 07-30-2024 Assay of troponin quantitative Stevenson Arnett Fo skey DO Work Phone: Start: 07-30-2024 Urinalysis microscopic only Stevenson Arnett Foske y DO Work Phone: Start: 07-30-2024 Urinalysis, reagent strip without microscopy Stevenson A Foskey DO Work Phone: Start: 07-30-2024 Radiologic exam chest 2 views Stevenson Arnett Fos matthew DO Work Phone: Start: 07-30-2024 End: 07-30-2024 Culture bacterial blood aerobic w/id isolates Stevenson A Foskey DO Work Phone: Start: 07-30-2024 Blood count complete auto&auto difrntl wbc Stevenson A Foskey DO Work Phone: Start: 07-30-2024 Hepatic function panel Stevenson A Foskey DO Work Phone: Start: 07-30-2024 Sars-cov-2 detection by dna/rna Stevenson Arnett F oskey DO Work Phone: Start: 07-30-2024 Ecg routine ecg w/least 12 lds trcg only w/o i&r Stevenson A Foskey DO Work Phone: Start: 07-06-2024 Drug screen quantitative vancomycin Inocente Brennan [employer]-PROJECT FACILITATOR Work Phone: Start: 07-06-2024 Complete blood count with white cell differential, automated Eliseo Brennan [employer]-PROJECT FACILITATOR Work Phone: Start: 07-06-2024 Comprehensive metabolic panel Eliseo Brennan [employer]-PROJECT FACILITATOR Work Phone: Start: 07-06-2024 Lipid panel Barbei Ramires [employer]-PROJECT FACILITATOR Work Phone: Start: 07-06-2024 Lipid 1996 panel - Serum or Plasma Gianni Jones MD Work Phone: Start: 07-05-2024 Drug screen quantitative vancomycin Step mariela Brennan [employer]-PROJECT FACILITATOR Work Phone: Start: 07-05-2024 Echo transthorc r-t 2d w/wo m-mode rec f-up/lmtd Eliseo Brennan [employer]-PROJECT FACILITATOR Work Phone: Start: 07-05-2024 Assay of troponin quantitative Eliseo Brennan [employer]-PROJECT FACILITATOR Work Phone: Start: 07-05-2024 C-reactive protein Eliseo Brennan [employer]-PROJECT FACILITATOR Work Phone: Start: 07-05-2024 Comprehensive metabolic panel Eliseo Brennan [employer]-PROJECT FACILITATOR Work Phone: Start: 07-04-2024 Assay of troponin quantitative Eliseo Brennan [employer]-PROJECT FACILITATOR Work Phone: Start: 07-04-2024 Cultyp nuc acid amp prb cult/isolate ea orgnism Eliseo Brennan [employer]-PROJECT FACILITATOR Work Phone: Start: 07-04-2024 Iaad ia mult step method nos each organism Eliseo Brennan [employer]-PROJECT FACILITATOR Work Phone: Start: 07-04-2024 Urnls dip stick/tablet rgnt auto w/o microscopy Eliseo Brennan [employer]-PROJECT FACILITATOR Work Phone: Start: 07-04-2024 Assay of troponin quantitative Eliseo Brennan [employer]-PROJECT FACILITATOR Work Phone: Start: 07-04-2024 Ecg routine ecg w/least 12 lds trcg only w/o i&r Sonu Jones MD Work Phone: Start: 07-04-2024 Ct thorax w/o contrast material Sonu Jones MD Work Phone: Start: 3 C-reactive protein Eliseo Brennan [employer]-PROJECT FACILITATOR Work Phone: Start: 07-04-2024 Culture bacterial blood aerobic w/id isolates Sonu Jones MD Work Phone: Start: 07-04-2024 Natriuretic peptide Sonu Jones MD Work Phone: Start: 06-09-2024 Blood count complete auto&auto difrntl wbc Diane Tony MD Work Phone: Start: 06-08-2024 Smr prim src gram/giemsa stain bct fungi/cell Aziza Erazo MD Work Phone: Start: 06-08-2024 Glucose measurement Generic [facility] Work Phone: Start: 06-08-2024 Iaad ia mult step method nos each organism Aziza Erazo MD Work Phone: Start: 06-08-2024 Comprehensive metabolic panel Aziza Erazo MD Work Phone: Start: 06-08-2024 Red blood cell morphology Aziza Erazo MD Work Phone: Start: 05-26-2024 Esophagogastroduodenoscopy transoral diagnostic Vasu Jaimes DO Work Phone: Start: 05-22-2024 Ct abdomen & pelvis w/contrast material Carrie Lara PA-C Work Phone: Start: 05-22-2024 Comprehensive metabolic panel Carrie hinds PA-C Work Phone: Start: 03-17-2024 Sars-cov-2 detection by dna/rna Ulices R. Amber DO Work Phone: Start: 03-17-2024 Iaadiadoo influenza Ulices R. Amber DO Work Phone: Start: 12-25-2023 End: 12-25-2023 Basic metabolic panel calcium total Geremias ie Han Brown MD Work Phone: Start: 12-24-2023 Radiologic exam chest single view Betzy Davalos MD Work Phone: Start: 12-24-2023 Basic metabolic panel calcium total Geremias ie Han Brown MD Work Phone: Start: 12-23-2023 Iadna s aureus methicillin resist amp probe tq Betzy Davalos MD Work Phone: Start: 12-23-2023 End: 12-23-2023 Iaad ia mult step method nos each organism Nati Brown MD Work Phone: Start: 12-23-2023 Dup-scan xtr veins complete bilateral study Nati Brown MD Work Phone: Start: 12-23-2023 Thromboplastin time partial plasma/whole blood Betzy Davalos MD Work Phone: Start: 12-23-2023 Echo tthrc r-t 2d w/wom-mode compl spec&colr d Nati Brown MD Work Phone: Start: 12-23-2023 Basic metabolic panel calcium total Geremias Brown MD Work Phone: Start: 11-15-2023 Urinalysis complete W Reflex Culture panel - Urine Ernestina Krishnamurthy DO Work Phone: Start: 11-15-2023 Urnls dip stick/tablet reagent auto microscopy Ernestina Krishnamurthy DO Work Phone: Start: 11-15-2023 Ct abdomen & pelvis w/contrast material Ernestina Krishnamurthy DO Work Phone: Start: 11-15-2023 Radiologic exam chest single view Kumar Krishnamurthy DO Work Phone: Start: 11-15-2023 Influenza virus A and B RNA [Identifier] in Unspecified specimen by ROBERTA with probe detection Ernestina Krishnamurthy DO Work Phone: Start: 11-15-2023 Respiratory syncytial virus RNA [Presence] in Respiratory specimen by ROBERTA with probe detection Ernestina Krishnamurthy DO Work Phone: Start: 11-15-2023 SARS-CoV-2 (COVID-19) RNA [Presence] in Respiratory specimen by ROBERTA with probe detection Ernestina Krishnamurthy DO Work Phone: Start: 11-15-2023 Comprehensive metabolic panel Ernestina Krishnamurthy DO Work Phone: Start: 11-11-2023 Esophagogastroduodenoscopy transoral diagnostic Vasu Jaimes DO Work Phone: Start: 10-23-2023 Lipid 1996 panel - Serum or Plasma Valeria Hillman RD Work Phone: Start: 08-22-2023 PFT COMPLETE Yobani Bojorquez MD Work Phone: Start: 08-22-2023 Pulmonary stress testing Yobani valle MD Work Phone: Start: 08-07-2023 Urnls dip stick/tablet rgnt auto w/o microscopy Gunjan Godoy MD Work Phone: Start: 07-18-2023 Ct thorax w/contrast material Sushma Brandon Work Phone: Start: 06-17-2023 Radiologic exam chest single view Angela Fitch DO Start: 06-17-2023 C-reactive protein Eliseo Brennan [employer]-PROJECT FACILITATOR Work Phone: Start: 06-17-2023 Complete blood count with white cell differential, automated Cayla Maria MD Work Phone: Start: 06-17-2023 Comprehensive metabolic panel Eliseo Brennan [employer]CTOR-PROJECT FACILITATOR Work Phone: Start: 06-16-2023 Iaad ia mult step method nos each organism Eliseo Brennan [employer]-PROJECT FACILITATOR Work Phone: Start: 06-16-2023 C-reactive protein Eliseo Brennan [employer]-PROJECT FACILITATOR Work Phone: Start: 06-16-2023 Comprehensive metabolic panel Eliseo Brennan [employer]-PROJECT FACILITATOR Work Phone: Start: 06-15-2023 Drug screen quantitative vancomycin Chris Maria MD Work Phone: Start: 06-15-2023 Blood count complete auto&auto difrntl wbc Cayla Maria MD Work Phone: Start: 06-15-2023 C-reactive protein Eliseo Brennan [employer]-PROJECT FACILITATOR Work Phone: Start: 06-14-2023 Urinalysis microscopic only Eliseo ochoa MD Work Phone: Start: 06-14-2023 Urinalysis, reagent strip without microscopy Eliseo Patton MD Work Phone: Start: 06-14-2023 Ct thorax w/o contrast material Eliseo Patton MD Work Phone: Start: 06-14-2023 Sars-cov-2 detection by dna/rna Eliseo Patton MD Work Phone: Start: 06-14-2023 Radiologic exam chest 2 views Eliseo Patton MD Work Phone: Start: 06-14-2023 Comprehensive metabolic panel Eliseo Patton MD Work Phone: Start: 06-14-2023 End: 06-14-2023 Culture bacterial blood aerobic w/id isolates Eliseo Patton MD Work Phone: Start: 06-14-2023 Ecg routine ecg w/least 12 lds trcg only w/o i&r Eliseo Patton MD Work Phone: Start: 06-11-2023 Computerized ophthalmic imaging retina Naida Phillips MD Work Phone: Start: 05-26-2023 End: 05-26-2023 Drug screen quantitative vancomycin Vivi LIMA-Simon Work Phone: Start: 05-26-2023 Complete blood count with white cell differential, automated Juan Gomez MD Work Phone: Start: 05-26-2023 Comprehensive metabolic panel Juan harmon MD Work Phone: Start: 05-26-2023 Blood count hematocrit Pito Gama Work Phone: Start: 05-25-2023 Blood count hematocrit Pito Gama Work Phone: Start: 05-25-2023 Blood count reticulocyte automated Tamera Lance PA-C Work Phone: Start: 05-25-2023 C-reactive protein Juan Gomez MD Work Phone: Start: 05-25-2023 Comprehensive metabolic panel Juan harmon MD Work Phone: Start: 05-25-2023 Cultyp nuc acid amp prb cult/isolate ea orgnism Juan Gomez MD Work Phone: Start: 05-24-2023 Iaad ia mult step method nos each organism Juan Gomez MD Work Phone: Start: 05-24-2023 Urnls dip stick/tablet rgnt auto w/o microscopy Juan Gomez MD Work Phone: Start: 05-24-2023 Ct angiography chest w/contrast/noncontrast Juan Gomez MD Work Phone: Start: 05-24-2023 Radiologic exam chest single view Juan Gomez MD Work Phone: Start: 05-24-2023 Blood gases any combination ph pco2 po2 co2 hco3 Juan Gomez MD Work Phone: Start: 05-24-2023 End: 05-24-2023 Culture bacterial blood aerobic w/id isolates Juan Gomez MD Work Phone: Start: 05-24-2023 C-reactive protein Juan Gomez MD Work Phone: Start: 05-24-2023 Comprehensive metabolic panel Juan harmon MD Work Phone: Start: 05-24-2023 Ecg routine ecg w/least 12 lds trcg only w/o i&r Sonu Jones MD Work Phone: Start: 05-11-2023 Gluc bld gluc mntr dev cleared fda spec home use Cayla Maria MD Work Phone: Start: 05-11-2023 Drug screen quantitative vancomycin Inocente Brennan [employer]-PROJECT FACILITATOR Work Phone: Start: 05-11-2023 Radiologic exam chest single view Riri Brennan [employer]-PROJECT FACILITATOR Work Phone: Start: 05-11-2023 B12/folate level Eliseo Brennan [employer]-PROJECT FACILITATOR Work Phone: Start: 05-11-2023 C-reactive protein Eliseo Brennan [employer]-PROJECT FACILITATOR Work Phone: Start: 05-11-2023 Complete blood count with white cell differential, automated Eliseo Brennan [employer]-PROJECT FACILITATOR Work Phone: Start: 05-11-2023 End: 05-11-2023 Comprehensive metabolic panel Eliseo Brennan [employer]-PROJECT FACILITATOR Work Phone: Start: 05-11-2023 Gluc bld gluc mntr dev cleared fda spec home use Cayla Maria MD Work Phone: Start: 05-10-2023 Gluc bld gluc mntr dev cleared fda spec home use Cayla Maria MD Work Phone: Start: 05-10-2023 Gluc bld gluc mntr dev cleared fda spec home use Cayla Maria MD Work Phone: Start: 05-10-2023 Drug screen quantitative vancomycin Feliz Fitch DO Start: 05-10-2023 End: 05-10-2023 Gluc bld gluc mntr dev cleared fda spec home use Cayla Maria MD Work Phone: Start: 05-10-2023 Gluc bld gluc mntr dev cleared fda spec home use Cayla Maria MD Work Phone: Start: 05-10-2023 C-reactive protein Eliseo Brennan [employer]-PROJECT FACILITATOR Work Phone: Start: 05-10-2023 Comprehensive metabolic panel Eliseo Brennan [employer]-PROJECT FACILITATOR Work Phone: Start: 05-10-2023 Gluc bld gluc mntr dev cleared fda spec home use Cayla Maria MD Work Phone: Start: 05-09-2023 Assay of lactate Eliseo Brennan [employer]-PROJECT FACILITATOR Work Phone: Start: 05-09-2023 Urnls dip stick/tablet rgnt auto w/o microscopy Eliseo Brennan [employer]-PROJECT FACILITATOR Work Phone: Start: 05-09-2023 Iaad ia mult step method nos each organism Eliseo Brennan [employer]-PROJECT FACILITATOR Work Phone: Start: 05-09-2023 Assay of troponin quantitative Eliseo Brennan [employer]-PROJECT FACILITATOR Work Phone: Start: 05-09-2023 Cultyp nuc acid amp prb cult/isolate ea orgnism Eliseo Brennan [employer]-PROJECT FACILITATOR Work Phone: Start: 05-09-2023 End: 05-09-2023 Assay of phosphatase alkaline isoenzymes Eliseo Brennan [employer]-PROJECT FACILITATOR Work Phone: Start: 05-09-2023 TTE w or wo Doron james Eliseo Jackie H obson [employer]-PROJECT FACILITATOR Work Phone: Start: 05-09-2023 Ct angiography chest w/contrast/noncontrast Eliseo Brennan [employer]-PROJECT FACILITATOR Work Phone: Start: 05-09-2023 Blood gases any combination ph pco2 po2 co2 hco3 Eliseo Brennan [employer]-PROJECT FACILITATOR Work Phone: Start: 05-09-2023 C-reactive protein Eliseo Brennan [employer]-PROJECT FACILITATOR Work Phone: Start: 05-09-2023 Natriuretic peptide Eliseo Brennan [employer]-PROJECT FACILITATOR Work Phone: Start: 05-09-2023 Radiologic exam chest single view hCaka Campos MD Work Phone: Start: 05-09-2023 Comprehensive metabolic panel Chaka quijano MD Work Phone: Start: 05-09-2023 Sars-cov-2 detection by dna/rna Chaka escalona MD Work Phone: Start: 05-09-2023 End: 05-09-2023 Culture bacterial blood aerobic w/id isolates Chaka Campos MD Work Phone: Start: 04-20-2023 Gluc bld gluc mntr dev cleared fda spec home use Burton George MD Work Phone: Start: 04-20-2023 BLOOD GAS VENOUS Burton George MD Work Phone: Start: 04-20-2023 C-reactive protein Pito LIMA-C Work Phone: Start: 04-20-2023 Complete blood count with white cell differential, automated Burton George MD Work Phone: Start: 04-20-2023 Renal function panel Burton George MD Work Phone: Start: 04-20-2023 Assay of troponin quantitative Pito so PA-C Work Phone: Start: 04-19-2023 Assay of troponin quantitative Pito Ru saray PA-C Work Phone: Start: 04-19-2023 Iaad ia mult step method nos each organism Burton George MD Work Phone: Start: 04-19-2023 C-reactive protein Pito BAEZC Work Phone: Start: 04-19-2023 End: 04-19-2023 Renal function panel Burton George MD Work Phone: Start: 04-19-2023 Ct thorax w/o contrast material Pito LIMA-C Work Phone: Start: 04-19-2023 Cultyp nuc acid amp prb cult/isolate ea orgnism Pito LIMA-C Work Phone: Start: 04-19-2023 Radiologic exam chest single view Burton George MD Work Phone: Start: 04-08-2023 Complete blood count with white cell differential, automated Ralf Kent [employer] INSTRUCTOR-PROJECT FACILITATOR Work Phone: Start: 04-08-2023 Renal function panel Ralf Kent [employer] INSTRUCTOR-PROJECT FACILITATOR Work Phone: Start: 04-07-2023 REQUEST FOR MISC LAB SENDOUT Carla smith MD Work Phone: Start: 04-07-2023 Cultyp nuc acid amp prb cult/isolate ea socorro Mayer MD Work Phone: Start: 04-07-2023 INTERVENTIONAL UPPER ENDOSCOPY S Kirk Godoy MD Work Phone: Start: 03-04-2023 Radiologic exam swallow function contrast study Eliseo Brennan [employer] INSTRUCTOR-PROJECT FACILITATOR Work Phone: Start: 03-04-2023 C-reactive protein Galen Miller MD Work Phone: Start: 03-04-2023 Complete blood count with white cell differential, automated Galen Miller MD Work Phone: Start: 03-04-2023 Comprehensive metabolic panel Galen marshall MD Work Phone: Start: 03-03-2023 Iaad ia mult step method nos each organism Tory Emery [employer] INSTRUCTOR-PROJECT FACILITATOR Work Phone: Start: 03-03-2023 Assay of troponin quantitative Galen clark MD Work Phone: Start: 03-03-2023 Assay of troponin quantitative Galen clark MD Work Phone: Start: 03-03-2023 Cultyp nuc acid amp prb cult/isolate ea socorro Miller MD Work Phone: Start: 03-03-2023 Assay of troponin quantitative Galen clark MD Work Phone: Start: 03-03-2023 C-reactive protein Galen Miller MD Work Phone: Start: 03-03-2023 Ct angiography chest w/contrast/noncontrast Burton BAEZC Work Phone: Start: 03-03-2023 Infectious agent dna/rna influenza 1st 2 types Burton LIMA-C Work Phone: Start: 03-03-2023 Sars-cov-2 detection by dna/rna Burton LIMA-C Work Phone: Start: 03-03-2023 Comprehensive metabolic panel Burton Nai Andra LIMA-C Work Phone: Start: 03-03-2023 Ecg routine ecg w/least 12 lds w/i&r Burton LIMA-C Work Phone: Start: 02-24-2023 Ct soft tissue neck w/contrast material Sushma B Brandon Work Phone: Start: 02-18-2023 Ct abdomen & pelvis w/contrast material Sushma B Brandon Work Phone: Start: 02-18-2023 Ct thorax w/contrast material Sushma B Brandon Work Phone: Start: 02-05-2023 Ct thorax w/o contrast material Linda Jean Baptiste [employer] INSTRUCTOR.PROJECT FACILITATOR Work Phone: Start: 11-27-2022 CT LUNG SCREEN WO IVCON Linda javier [employer] INSTRUCTOR.PROJECT FACILITATOR Work Phone: Start: 08-09-2022 Lipid 1996 panel - Serum or Plasma Adalgisa Godoy MD Work Phone: Start: 06-05-2022 Fundus photography w/interpretation & report Naida Phillips MD Work Phone: Start: 11-28-2021 Computerized ophthalmic imaging retina Naida Phillips MD Work Phone: Start: 07-13-2021 Lipid 1996 panel - Serum or Plasma Suresh Emerson MD Work Phone: Start: 05-18-2021 End: 05-18-2021 Colonoscopy Richy Emerson Work Phone: Start: 05-14-2021 Ct thorax w/o contrast material Linda Jean Baptiste APRN.PROJECT FACILITATOR Work Phone: Start: 01-24-2021 Lipid 1996 panel - Serum or Plasma Suresh Emerson MD Work Phone: Start: 07-23-2017 Lipid 1996 panel - Serum or Plasma Suresh Emerson Plan of Treatment Date Care Activity Detail Author Start: 05-19-2031 Screening for malignant neoplasm of colon [facility] Start: 07-31-2029 Lipid panel LIPID SCREENING [facility] Start: 07-06-2029 Lipid panel LIPID SCREENING [facility] Start: 10-22-2028 Lipid panel Lipid Screening [facility] Start: 10-05-2027 Diabetes Screening Diabetes Screening [facility] Start: 09-15-2027 Diabetes Screening [facility] Start: 09-07-2027 Diabetes Screening Diabetes Screening [facility] Start: 08-10-2027 Diabetes Screening Diabetes Screening [facility] Start: 08-10-2027 Lipid panel LIPID SCREENING [facility] Start: 06-09-2027 Diabetes Screening [facility] Start: 12-24-2026 Diabetes Screening Diabetes Screening [facility] Start: 11-20-2026 Diabetes Screening Diabetes Screening [facility] Start: 10-22-2026 Diabetes Screening [facility] Start: 07-17-2026 Diabetes Screening [facility] Start: 07-13-2026 Fasting lipid profile LIPID SCREENING [facility] [employer] Start: 07-13-2026 Lipid panel LIPID SCREENING [facility] Start: 06-16-2026 Diabetes Screening [facility] Start: 06-03-2026 Diabetes Screening [facility] Start: 05-25-2026 Diabetes Screening [facility] Start: 05-10-2026 Diabetes Screening [facility] Start: 03-04-2026 Diabetes Screening [facility] Start: 02-14-2026 Diabetes Screening [facility] Start: 01-24-2026 Fasting lipid profile LIPID SCREENING [employer] Start: 11-14-2025 Diabetes Screening Diabetes Screening [facility] Start: 08-09-2025 DIABETES SCREEN DIABETES SCREEN [facility] Start: 06-10-2025 DIABETES SCREEN DIABETES SCREEN [facility] Start: 06-08-2025 Diabetes mellitus screening Diabetes Screening [facility] Start: 06-02-2025 Vitamin D25-OH Vitamin D25-OH [facility] Start: 05-12-2025 End: 05-12-2025 Patient encounter procedure 05/12/2025 11:30 AM EDT Office Visit [facility] [address] [facility] Medical Office Building, [address] [place] [phone] Kaushik Whitfield MD [address] [address] [facility] Start: 05-05-2025 End: 05-05-2025 Patient encounter procedure 05/05/2025 12:00 PM EDT Office Visit [facility] [address] [place] [address] Ulices Clark, DO [facility] [address] [address] [facility] Start: 02-08-2025 End: 02-08-2025 Patient encounter procedure 02/08/2025 9:30 AM EST Office Visit [facility] [address] [facility] Medical Office Building, [address] [place] [phone] Ulices Clark DO [address] [address] Anne Marie Christianson MD [address] [address] [facility] Start: 01-27-2025 End: 01-27-2025 Patient encounter procedure 01/27/2025 10:30 AM EST Office Visit [address] [place] [address] Vasu Jaimes, DO [address] [facility], [address] [place] [address] [facility] Start: 12-21-2024 End: 12-21-2024 Patient encounter procedure 12/21/2024 3:00 PM EST Appointment [facility] [address] [place] [phone] Kaushik Whitfield MD [address] [address] [facility] Start: 12-14-2024 End: 12-14-2024 Patient encounter procedure Pulmonary Medicine Comment on above: 3 MO OV Start: 11-22-2024 DIABETES SCREEN DIABETES SCREEN [facility] Start: 11-17-2024 End: 11-17-2024 Patient encounter procedure 11/17/2024 10:00 AM EDT Office Visit [facility] [address] [place] [address] Medical Office Building, 2nd [place] [phone] Kaushik Whitfield MD [address] [place] [address] [facility] Start: 11-10-2024 End: 11-10-2024 Patient encounter procedure 11/10/2024 11:15 AM EDT Office Visit [facility] [address] [place] [address] Naida Phillips MD 21 [place] [address] [facility] [address] [address] Dry eye Ophthalmology Comment on above: Dry eye Start: 11-09-2024 End: 11-09-2024 Patient encounter procedure 11/09/2024 12:40 PM EDT Office Visit [facility] [address] [place] [address] Ulices Clark DO [address] [address] [facility] Start: 11-08-2024 End: 11-08-2024 Follow-up encounter Hematology/Oncology Comment on above: 3 month follow up follow up per nutrit ion Start: 11-08-2024 End: 11-08-2024 ambulatory 11/08/2024 11:00 AM EDT Results Only [facility] [address] [place] [address] labs doc after [facility] Comment on above: labs doc after Start: 10-26-2024 End: 10-26-2024 Patient encounter procedure 10/26/2024 1:40 PM EDT Office Visit [facility] [address] [facility] [address] [place] [address] Eugenio Ruiz, PROJECT FACILITATOR [address] [place] [address] [facility] Start: 10-22-2024 Fall risk assessment Falls Risk Assessment [facility] Start: 10-18-2024 COVID-19 Vaccine ( season) COVID-19 Vaccine ( season) [facility] Start: 10-18-2024 COVID-19 Vaccine ( season) COVID-19 Vaccine ( season) [facility] Start: 10-18-2024 Influenza vaccination Influenza Vaccine (#1) [facility] Start: 10-08-2024 End: 10-08-2024 Patient encounter procedure 10/08/2024 11:30 AM EDT Office Visit [facility] [address] [place] [address] Naida Phillips MD [address] [place] [address] [facility] [address] [address] mgd/sana Ophthalmology Comment on above: mgd/sana Start: 10-04-2024 End: 10-04-2024 Follow-up encounter 10/04/2024 1:30 PM EDT [facility] [address] [place] [phone] Zoya Hillman, MARTINE [address] [place] [address] follow up per nutrition Nutrition Therapy Comment on above: follow up per nutrition Start: 10-04-2024 End: 10-04-2024 ambulatory 10/04/2024 1:15 PM EDT Results Only [facility] [address] [place] [address] labs zoya after [facility] Comment on above: labs zoya after Start: 10-01-2024 End: 10-01-2024 Follow-up encounter 10/01/2024 1:30 PM EDT [facility] [address] [place] [address] Zoya Hillman, MARTINE [address] [place] [address] PEG Galo matthew tube follow up Nutrition Therapy Comment on above: PEG Galo matthew tube follow up Start: 09-16-2024 End: 12-16-2024 ALPHA 1 ANTITRYP PHEN/GENOTYPE ALPHA 1 ANTITRYP PHEN/GENOTYPE Lab Routine Expected: 09/16/2024, Expires: 12/16/2024 [facility] Comment on above: Expected: 09/16/2024, Expires: Start: 09-16-2024 End: 12-16-2024 Bacteria identified in Unspecified specimen by Respiratory culture BACTERIAL CULTURE AND GRAM STAIN, RESPIRATORY, SPUTUM AND TRACHEAL ASPIRATE Microbiology Routine Bronchiectasis without complication (HCC) Expected: 09/16/2024, Expires: 12/16/2024 [facility] Work Phone: Comment on above: Expected: 09/16/2024, Expires: Start: 09-16-2024 End: 12-16-2024 IgA [Mass/volume] in Serum or Plasma IMMUNOGLOBULIN A Lab Routine Bronchiectasis without complication (HCC) Expected: 09/16/2024, Expires: 12/16/2024 [facility] Comment on above: Expected: 09/16/2024, Expires: Start: 09-16-2024 End: 12-16-2024 IgE [Units/volume] in Serum or Plasma IMMUNOGLOBULIN E Lab Routine Bronchiectasis without complication (HCC) Expected: 09/16/2024, Expires: 12/16/2024 [facility] Comment on above: Expected: 09/16/2024, Expires: Start: 09-16-2024 End: 12-16-2024 IgG [Mass/volume] in Serum or Plasma IMMUNOGLOBULIN G Lab Routine Bronchiectasis without complication (HCC) Expected: 09/16/2024, Expires: 12/16/2024 [facility] Comment on above: Expected: 09/16/2024, Expires: Start: 09-16-2024 End: 12-16-2024 IgM [Mass/volume] in Serum or Plasma IMMUNOGLOBULIN M Lab Routine Bronchiectasis without complication (HCC) Expected: 09/16/2024, Expires: 12/16/2024 [facility] Comment on above: Expected: 09/16/2024, Expires: Start: 09-16-2024 End: 12-16-2024 Microorganism identified in Unspecified specimen by Culture AFB CULTURE AND STAIN Microbiology Routine Bronchiectasis without complication (HCC) Expected: 09/16/2024, Expires: 12/16/2024 [facility] Comment on above: Expected: 09/16/2024, Expires: Start: 09-16-2024 End: 09-16-2024 Patient encounter procedure 09/16/2024 12:45 PM EDT Office Visit Pulmonary Medicine [address] [place] [address] Omer Adler MD [address] [place] [address] Multiple lung nodules on CT [R91.8] Pulmonary Medicine Comment on above: Multiple lung nodules on CT [R91.8] Start: 09-14-2024 End: 09-14-2024 Patient encounter procedure 09/14/2024 12:40 PM EDT Office Visit [facility] [address] [place] [address] Ulices Clark DO [address] [address] [facility] Start: 09-06-2024 End: 09-06-2024 Follow-up encounter 09/06/2024 1:30 PM EDT [facility] [address] [place] [address] Zoya Hillman, RD [address] [place] [address] follow up per nutrition Nutrition Therapy Comment on above: follow up per nutrition Start: 09-06-2024 End: 09-06-2024 ambulatory 09/06/2024 1:15 PM EDT Results Only [facility] [address] [place] [address] labs zoya after [facility] Comment on above: labs zoya after Start: 09-03-2024 End: 07-23-2025 CT Chest WO contrast CT CHEST WITHOUT CONTRAST Imaging Routine Multiple lung nodules on CT Expected: 09/03/2024, Expires: 07/23/2025 [facility] Comment on above: Expected: 09/03/2024, Expires: Start: 09-02-2024 End: 09-02-2024 Patient encounter procedure 09/02/2024 1:15 PM EDT Office Visit [facility] [address] [place] [address] Vasu Jiames DO [address] [facility], [address] [place] [address] [facility] Start: 08-16-2024 End: 08-16-2024 Clinical Support Encounter [employer] [facility] [place] [facility] Comment on above: Multiple lung nodules on CT [R91.8]; Asp iration into lower respiratory tract, subsequent encounter [T17.800D] Start: 08-11-2024 End: 08-11-2024 Patient encounter procedure 08/11/2024 1:00 PM EDT Office Visit [facility] [address] [place] [phone] Gavin Hammonds, KATINA [address] [facility] 2nd [place] [address] [facility] Start: 08-10-2024 End: 08-10-2024 Follow-up encounter Hematology/Oncology Comment on above: 6 month follow up-lab results Start: 08-03-2024 End: 08-03-2024 ambulatory 08/03/2024 1:45 PM EDT Results Only [facility] [address] [place] [address] labs [facility] Comment on above: labs Start: 07-28-2024 End: 10-27-2024 CBC W Auto Differential panel - Blood COMPLETE BLOOD COUNT AND DIFFERENTIAL Lab Routine Lung nodules Aspiration into lower respiratory tract, subsequent encounter History of tongue cancer Expected: 07/28/2024 (Approximate), Expires: 10/27/2024 [facility] Work Phone: Comment on above: Expected: 07/28/2024 (Approximate), Expi res: 10/27/2024 Start: 07-26-2024 End: 10-25-2024 Thyroxine (T4) free [Mass/volume] in Serum or Plasma T4 FREE/FREE THYROXINE Lab Routine Lung nodules Aspiration into lower respiratory tract, subsequent encounter History of tongue cancer Expected: 07/26/2024, Expires: 10/25/2024 [facility] Comment on above: Expected: 07/26/2024, Expires: Start: 07-25-2024 Depression Remission Assessment (PHQ9) Depression Remission Assessment (PHQ9) [facility] Start: 07-24-2024 End: 10-23-2024 Comprehensive metabolic 2000 panel - Serum or Plasma COMPREHENSIVE METABOLIC PANEL Lab Routine Lung nodules Aspiration into lower respiratory tract, subsequent encounter History of tongue cancer Expected: 07/24/2024 (Approximate), Expires: 10/23/2024 [facility] Comment on above: Expected: 07/24/2024 (Approximate), Expi res: 10/23/2024 Start: 07-24-2024 End: 10-23-2024 Thyrotropin [Units/volume] in Serum or Plasma THYROID STIMULATING HORMONE Lab Routine Lung nodules Aspiration into lower respiratory tract, subsequent encounter History of tongue cancer Expected: 07/24/2024, Expires: 10/23/2024 [facility] Comment on above: Expected: 07/24/2024, Expires: Start: 07-23-2024 End: 07-23-2024 Patient encounter procedure [facility] Pulmonary Disease [facility] Start: 07-23-2024 End: 07-23-2025 Overnight pulse oximetry OVERNIGHT PULSE OXIMETRY TEST PFT Routine Chronic respiratory failure with hypoxia, on home oxygen therapy Centrilobular emphysema Chronic obstructive pulmonary disease, unspecified COPD type Expected: 07/23/2024, Expires: 07/23/2025 [facility] Comment on above: Expected: 07/23/2024, Expires: Start: 07-17-2024 Screening for malignant neoplasm of lung Lung Cancer Screening [facility] Start: 07-05-2024 End: 07-05-2024 Patient encounter procedure 07/05/2024 7:20 AM EDT Office Visit [facility] [address] [place] [address] Ulices Clark DO [address] [address] [facility] Start: 06-29-2024 End: 06-29-2024 Patient encounter procedure 06/29/2024 1:00 PM EDT Office Visit [facility] [address] [place] [address] Lydia Lora, OD [address] [place] [address] [facility] Comment on above: VMT Start: 06-22-2024 BP Controlled (<130/80) BP Controlled (<130/80) [facility] Start: 06-18-2024 End: 06-18-2024 Follow-up encounter 06/18/2024 2:30 PM EDT Education Nutrition Therapy [address] [place] [address] Zoya Hillman, MARTINE [address] [place] [address] follow up PEG Nutrition Therapy Comment on above: follow up PEG Start: 06-16-2024 Potassium [Moles/volume] in Serum or Plasma POTASSIUM [facility] Start: 06-15-2024 End: 06-15-2024 Patient encounter procedure 06/15/2024 2:40 PM EDT Office Visit [facility] [place] [address] Ulices Clakr DO [address] [address] [facility] Start: 06-13-2024 Screening for malignant neoplasm of lung Lung Cancer Screening [facility] Start: 06-08-2024 End: 06-08-2024 Patient encounter procedure 06/08/2024 2:20 PM EDT Office Visit [facility] [place] [address] Ulices Clark DO [address] [address] [facility] Start: 06-03-2024 BP Controlled (<130/80) BP Controlled (<130/80) [facility] Start: 06-01-2024 End: 06-01-2025 25-hydroxyvitamin D3 [Mass/volume] in Serum or Plasma Vitamin D 25-Hydroxy,Total (for eval of Vitamin D levels) Lab Routine Crohn's colitis, other complication (Multi) Expected: 06/01/2024 (Approximate), Expires: 06/01/2025 [facility] Service Area Work Phone: Comment on above: Expected: 06/01/2024 (Approximate), Expi res: 06/01/2025 Start: 06-01-2024 End: 06-01-2025 Iron and Iron binding capacity panel - Serum or Plasma Iron and TIBC Lab Routine S/P percutaneous endoscopic gastrostomy (PEG) tube placement (Multi) History of throat cancer Pharyngoesophageal dysphagia Mild protein-calorie malnutrition (Multi) Expected: 06/01/2024 (Approximate), Expires: 06/01/2025 [facility] Work Phone: Comment on above: Expected: 06/01/2024 (Approximate), Expi res: 06/01/2025 Start: 05-26-2024 End: 05-26-2024 Patient encounter procedure 05/26/2024 7:30 AM EDT Appointment [facility] [address] [place] [address] Vasu Jaimes, DO [address] [facility], [place] [address] [facility] [place] Start: 05-24-2024 COVID-19 Vaccine ( season) COVID-19 Vaccine () [facility] Start: 05-24-2024 COVID-19 VACCINE ( season) COVID-19 VACCINE ( season) [facility] Start: 05-24-2024 Covid-19 Vaccine ( season) Covid-19 Vaccine () [facility] Start: 05-18-2024 End: 05-18-2024 Patient encounter procedure [facility] Start: 05-14-2024 DIABETES SCREEN DIABETES SCREEN [facility] Start: 05-09-2024 Diabetes mellitus screening Diabetes Screening [facility] Start: 05-09-2024 Hemoglobin A1c measurement Diabetes: Hemoglobin A1C [facility] Start: 04-22-2024 End: 04-22-2024 Patient encounter procedure 04/22/2024 3:00 PM EST Office Visit [facility] [place] [address] [facility] [address] [place] [phone] Yobani Valle MD [address] [place] [address] [facility] [place] Start: 04-18-2024 Screening for malignant neoplasm of lung Lung Cancer Screening [facility] Start: 04-01-2024 End: 04-01-2024 Follow-up encounter 04/01/2024 3:30 PM EST [facility] [address] [place] [address] [place] [address] 3 mo follow up Nutrition Therapy Comment on above: 3 mo follow up Start: 03-23-2024 End: 12-30-2024 CT Chest WO contrast CT CHEST WITHOUT CONTRAST Imaging Routine Mass of pleura Lung nodule Expected: 03/23/2024 (Approximate), Expires: 12/30/2024 [facility] Comment on above: Expected: 03/23/2024 (Approximate), Expi res: 12/30/2024 Start: 03-23-2024 End: 03-23-2024 Patient encounter procedure [facility] Start: 03-21-2024 BP Controlled (<130/80) BP Controlled (<130/80) [facility] Start: 03-16-2024 End: 03-16-2024 Patient encounter procedure 03/16/2024 1:40 PM EST Office Visit [facility] [address] [place] [address] Ulices Clark DO [address] [address] [facility] Start: 02-29-2024 BP Controlled (<130/80) BP Controlled (<130/80) [facility] Start: 02-22-2024 Prostate specific antigen measurement PROSTATE CANCER SCREENING DISCUSSION [facility] Start: 02-19-2024 Screening for malignant neoplasm of lung Lung Cancer Screening [facility] Start: 02-18-2024 Advance Directive Discussion Advance Directive Discussion [facility] Start: 02-18-2024 Medicare Advantage Annual Wellness Visit Medicare Advantage Annual Wellness Visit [facility] Start: 01-26-2024 End: 01-26-2024 ambulatory 01/26/2024 11:00 AM EST Visit (SP) Office Hematology/Oncology [address] [place] [address] Sushma Brandon [address] [place] [address] 6 mon fu - scan results Hematology/Oncology Comment on above: 6 mon fu - scan results Start: 01-23-2024 End: 04-23-2024 CBC W Auto Differential panel - Blood COMPLETE BLOOD COUNT AND DIFFERENTIAL Lab Routine History of tongue cancer Lung nodules Expected: 01/23/2024 (Approximate), Expires: 04/23/2024 [facility] Work Phone: Comment on above: Expected: 01/23/2024 (Approximate), Expi res: 04/23/2024 Start: 01-22-2024 End: 04-22-2024 Basic metabolic panel - Blood ISTAT BMP Lab Routine History of tongue cancer Erythrocytosis Expected: 01/22/2024, Expires: 04/22/2024 [facility] Work Phone: Comment on above: Expected: 01/22/2024, Expires: Start: 01-22-2024 End: 04-22-2024 Hepatic function 2000 panel - Serum or Plasma [facility] Work Phone: Comment on above: Expected: 01/22/2024, Expires: Start: 01-22-2024 End: 01-22-2024 Results Only [facility] Comment on above: labs, orders linked ct chest wo ivcon CT C/A/P W IVCON Start: 01-19-2024 End: 04-19-2024 Comprehensive metabolic 2000 panel - Serum or Plasma COMPREHENSIVE METABOLIC PANEL Lab Routine History of tongue cancer Lung nodules Expected: 01/19/2024 (Approximate), Expires: 04/19/2024 [facility] Comment on above: Expected: 01/19/2024 (Approximate), Expi res: 04/19/2024 Start: 01-13-2024 End: 01-13-2024 Patient encounter procedure 01/13/2024 1:40 PM EST Office Visit [facility] [address] [place] [address] Ulices Clark DO [address] [address] [facility] Start: 01-02-2024 End: 01-02-2024 Telephone follow-up 01/02/2024 3:30 PM EST [facility] [address] [place] [address] Zoya Hillman, MARTINE [address] [place] [address] follow up phone call Nutrition Therapy Comment on above: follow up phone call Start: 12-31-2023 End: 12-31-2023 Admission to same day surgery center 12/31/2023 7:20 AM EST - 12/31/2023 9:20 AM EST Surgery [facility] [address] [place] [phone] Tess Flores DO [address] [address] ROBOTIC LAPAROSCOPIC LEFT INGUINAL HERNIA REPAIR, POSSIBLE BILATERAL, POSSIBLE OPEN [facility] Comment on above: ROBOTIC LAPAROSCOPIC LEFT INGUINAL HERNI A REPAIR, POSSIBLE BILATERAL, POSSIBLE OPEN Start: 12-31-2023 End: 12-31-2023 Laparoscopy surg rpr initial inguinal hernia REPAIR HERNIA INGUINAL ROBOTIC XI Left inguinal hernia Venous insufficiency 12/31/2023 7:20 AM EST [facility] Main OR Start: 12-31-2023 Subsequent hospital visit by physician [facility] Start: 12-30-2023 End: 12-30-2023 Patient encounter procedure 12/30/2023 2:20 PM EST Office Visit [facility] [place] [address] [facility] 1st [place] [phone] Yobani Valle MD [address] [place] [address] [facility] [place] Start: 12-24-2023 End: 12-24-2023 Patient encounter procedure 12/24/2023 10:45 AM EST Office Visit [facility] Preadmission Testing [address] [place] [phone] Discharge Disposition: Home [facility] Preadmission Testing Start: 12-18-2023 End: 12-18-2023 Patient encounter procedure 12/18/2023 10:00 AM EDT Office Visit [facility] [address] [facility] Medical Office Building, 5th [place] [phone] Ulices Clark DO [address] [place] [address] Tess Flores DO [address] [address] [facility] Start: 12-17-2023 End: 12-17-2023 Patient encounter procedure 12/17/2023 2:20 PM EDT Office Visit [facility] [address] [place] [address] Ulices Clark DO [address] [address] [facility] Start: 12-02-2023 End: 12-02-2023 Patient encounter procedure 12/02/2023 11:15 AM EDT Office Visit [facility] [address] [place] [phone] Gunjan Godoy MD [address] [place] [address], [place] [address] [facility] Start: 11-28-2023 BP Controlled (<130/80) BP Controlled (<130/80) [facility] Start: 11-11-2023 End: 11-11-2023 Patient encounter procedure 11/11/2023 7:30 AM EDT Appointment [facility] OR [address] [place] [address] Vasu Jaimes, DO [address] [facility], [address] [place] [address] [facility] OR Start: 11-05-2023 End: 11-05-2023 Follow-up encounter 11/05/2023 11:00 AM EDT [facility] [address] [place] [address] [place] [address] follow up PEG/ nausea [facility] Comment on above: follow up PEG/ nausea Start: 10-31-2023 End: 10-31-2023 Follow-up encounter 10/31/2023 3:30 PM EDT [facility] [address] [place] [address] [place] [address] 3 mo follow up Nutrition Therapy Comment on above: 3 mo follow up Start: 10-19-2023 COVID-19 Vaccine () COVID-19 Vaccine () [facility] Start: 10-19-2023 COVID-19 VACCINE () COVID-19 VACCINE () [facility] Start: 10-19-2023 COVID-19 Vaccine () COVID-19 Vaccine () [facility] Start: 10-19-2023 COVID-19 Vaccine ( season) COVID-19 Vaccine ( season) [facility] Start: 10-19-2023 Influenza vaccination Influenza Vaccine (#1) Tyler Piña c Start: 09-01-2023 End: 09-01-2023 Patient encounter procedure 09/01/2023 3:30 PM EDT Appointment [facility] CT Scan [address] [place] [phone] Yobani Valle MD [address] [place] [address] [facility] [address] Scan Start: 09-01-2023 End: 09-01-2023 Patient encounter procedure 09/01/2023 11:15 AM EDT Office Visit [facility] [address] [place] [address], [place] [phone] Gunjan Godoy MD [address] [place] [address] [facility] Start: 08-26-2023 End: 08-25-2024 ALLERGEN PROFILE, MOLD [facility] em Comment on above: Expected: 08/26/2023, Expires: Start: 08-26-2023 End: 08-25-2024 ALPHA 1 ANTITRYPSIN [facility] Comment on above: Expected: 08/26/2023, Expires: Start: 08-26-2023 End: 08-25-2024 CT Chest WO contrast CT CHEST WITHOUT CONTRAST Imaging Routine Interstitial lung disease Multiple lung nodules on CT Mass of pleura Expected: 08/26/2023 (Approximate), Expires: 08/25/2024 [facility] Comment on above: Expected: 08/26/2023 (Approximate), Expi res: 08/25/2024 Start: 08-26-2023 End: 08-25-2024 IMMUNOGLOBULIN IGE [facility] Comment on above: Expected: 08/26/2023, Expires: Start: 08-26-2023 End: 08-25-2024 MINI-PANEL ALLERGEN PROFILE [facility] Comment on above: Expected: 08/26/2023, Expires: Start: 08-26-2023 End: 08-26-2023 Patient encounter procedure 08/26/2023 2:00 PM EDT Office Visit [facility] [place] [address] [place] [address] Yobani Valle MD 269 [facility] [place] [address] [facility] [place] Start: 08-22-2023 End: 02-22-2024 CBC,PLATELETS CBC,PLATELETS Lab Routine Dysphagia, unspecified type Expected: 08/22/2023, Expires: 02/22/2024 [facility] Comment on above: Expected: 08/22/2023, Expires: Start: 08-22-2023 End: 02-22-2024 Comprehensive metabolic 2000 panel - Serum or Plasma COMPREHENSIVE METABOLIC PANEL Lab Routine Severe protein-calorie malnutrition Dysphagia, unspecified type Expected: 08/22/2023, Expires: 02/22/2024 [facility] Comment on above: Expected: 08/22/2023, Expires: Start: 08-22-2023 End: 02-22-2024 LIPID PANEL W CALCULATED LDL LIPID PANEL W CALCULATED LDL Lab Routine Hyperlipidemia, unspecified hyperlipidemia type Expected: 08/22/2023, Expires: 02/22/2024 [facility] Comment on above: Expected: 08/22/2023, Expires: Start: 08-22-2023 End: 02-22-2024 Testosterone [Mass/volume] in Serum or Plasma TESTOSTERONE Lab Routine Testicular hypofunction Expected: 08/22/2023, Expires: 02/22/2024 [facility] Comment on above: Expected: 08/22/2023, Expires: Start: 08-22-2023 End: 08-22-2023 Patient encounter procedure [facility] [place] [facility] Start: 08-01-2023 End: 08-01-2023 Nutrition therapy 08/01/2023 2:30 PM EDT [facility] [address] [place] [address] Zoya Hillman, RD [address] [place] [address] F/u tube feeding tolerance [facility] Comment on above: F/u tube feeding tolerance Start: 07-28-2023 End: 10-27-2023 CBC W Auto Differential panel - Blood COMPLETE BLOOD COUNT AND DIFFERENTIAL Lab Routine Aspiration into lower respiratory tract, subsequent encounter History of tongue cancer Expected: 07/28/2023, Expires: 10/27/2023 [facility] Comment on above: Expected: 07/28/2023, Expires: Start: 07-28-2023 End: 10-27-2023 Comprehensive metabolic 2000 panel - Serum or Plasma COMPREHENSIVE METABOLIC PANEL Lab Routine Aspiration into lower respiratory tract, subsequent encounter History of tongue cancer Expected: 07/28/2023 (Approximate), Expires: 10/27/2023 [facility] Comment on above: Expected: 07/28/2023 (Approximate), Expi res: 10/27/2023 Start: 07-23-2023 End: 07-23-2023 ambulatory Hematology/Oncology Comment on above: 1 mon - scan results 1 mon - scan results pt can't move Start: 07-18-2023 End: 07-18-2023 Patient encounter procedure Radiology Pet CT Comment on above: ct chest w ivcon ct chest w ivcon, LM /jlh Start: 07-18-2023 End: 07-18-2023 ambulatory [facility] Comment on above: labs, start iv for scan labs, start iv for s can-please let know he is here she would like to check in with him Start: 07-10-2023 End: 07-10-2023 Nutrition therapy Nutrition Therapy Comment on above: 1 wk fu Start: 07-08-2023 End: 07-08-2023 Patient encounter procedure Otolaryngology Comment on above: Aspiration into lower respiratory tract, subsequent encounter [T17.800D] feeding tube assessm ent. Start: 07-02-2023 End: 07-02-2023 Nutrition therapy 07/02/2023 9:00 AM EDT [facility] [address] [place] [address] Zoya Hillman, MARTINE [address] [place] [address] 1 wk f/u Nutrition Therapy Comment on above: 1 wk f/u Start: 06-23-2023 End: 06-23-2023 ambulatory 06/23/2023 3:30 PM EDT Visit (SP) Office Hematology/Oncology [address] [place] [address] Sushma Brandon [address] [place] [address] 3 mon - scan results, do more phlebotomys? Hematology/Oncology Comment on above: 3 mon - scan results, do more phlebotom ys? Start: 06-23-2023 End: 06-23-2023 Nutrition therapy 06/23/2023 3:30 PM EDT [facility] [address] [place] [address] Zoya Hillman, MARTINE [address] [place] [address] f/u PEG Nutrition Therapy Comment on above: f/u PEG Start: 06-20-2023 End: 06-20-2023 Patient encounter procedure 06/20/2023 1:00 PM EDT Appointment [facility]iology [facility] [address] [place] [address] ct chest wo ivcon Radiology Pet CT Comment on above: ct chest wo ivcon Start: 06-20-2023 End: 06-20-2023 ambulatory 06/20/2023 12:45 PM EDT Results Only [facility] [address] [place] [address] labs, no iv needed for scan [facility] Comment on above: labs, no iv needed for scan Start: 06-19-2023 End: 09-18-2023 CBC W Auto Differential panel - Blood CBC + DIFF Lab Routine Lung nodules History of head and neck cancer Expected: 06/19/2023 (Approximate), Expires: 09/18/2023 [facility] Work Phone: Comment on above: Expected: 06/19/2023 (Approximate), Expi res: 09/18/2023 Start: 06-19-2023 End: 09-18-2023 Comprehensive metabolic 2000 panel - Serum or Plasma COMP METABOLIC PANEL Lab Routine Lung nodules History of head and neck cancer Expected: 06/19/2023 (Approximate), Expires: 09/18/2023 [facility] Work Phone: Comment on above: Expected: 06/19/2023 (Approximate), Expi res: 09/18/2023 Start: 06-19-2023 End: 04-19-2024 Ct thorax w/o contrast material CT CHEST WO IVCON Radiology Routine Lung nodules Expected: 06/19/2023, Expires: 04/19/2024 [facility] Work Phone: Comment on above: Expected: 06/19/2023, Expires: Start: 06-13-2023 End: 06-13-2023 Follow-up encounter 06/13/2023 2:30 PM EDT [facility] [address] [place] [address] Zoya Hillman, RD [address] [place] [address] PEG follow up Nutrition Therapy Comment on above: PEG follow up Start: 06-11-2023 BP CONTROLLED (<130/80) BP CONTROLLED (<130/80) [facility] Start: 06-04-2023 End: 06-03-2024 6-minute walk test EXERCISE-6 MIN. WALK PFT Routine Chronic obstructive pulmonary disease, unspecified COPD type Centrilobular emphysema Interstitial lung disease Reactive airway disease without complication, unspecified asthma severity, unspecified whether persistent Expected: 06/04/2023, Expires: 06/03/2024 [facility] Comment on above: Expected: 06/04/2023, Expires: Start: 06-04-2023 End: 06-03-2024 ALLERGEN PROFILE, MOLD ALLERGEN PROFILE, MOLD Lab Routine Chronic obstructive pulmonary disease, unspecified COPD type Reactive airway disease without complication, unspecified asthma severity, unspecified whether persistent Expected: 06/04/2023, Expires: 06/03/2024 [facility] Comment on above: Expected: 06/04/2023, Expires: Start: 06-04-2023 End: 06-03-2024 ALPHA 1 ANTITRYPSIN ALPHA 1 ANTITRYPSIN Lab Routine Chronic obstructive pulmonary disease, unspecified COPD type Expected: 06/04/2023, Expires: 06/03/2024 [facility] Comment on above: Expected: 06/04/2023, Expires: Start: 06-04-2023 End: 06-03-2024 Complete blood count with white cell differential, automated CBC, EDIF, PLATELET Lab Routine Chronic obstructive pulmonary disease, unspecified COPD type Expected: 06/04/2023, Expires: 06/03/2024 [facility] Comment on above: Expected: 06/04/2023, Expires: Start: 06-04-2023 End: 06-03-2024 IMMUNOGLOBULIN IGE IMMUNOGLOBULIN IGE Lab Routine Chronic obstructive pulmonary disease, unspecified COPD type Reactive airway disease without complication, unspecified asthma severity, unspecified whether persistent Expected: 06/04/2023, Expires: 06/03/2024 [facility] Comment on above: Expected: 06/04/2023, Expires: Start: 06-04-2023 End: 06-03-2024 MINI-PANEL ALLERGEN PROFILE MINI-PANEL ALLERGEN PROFILE Lab Routine Chronic obstructive pulmonary disease, unspecified COPD type Reactive airway disease without complication, unspecified asthma severity, unspecified whether persistent Expected: 06/04/2023, Expires: 06/03/2024 [facility] Comment on above: Expected: 06/04/2023, Expires: Start: 06-04-2023 End: 06-04-2023 Patient encounter procedure 06/04/2023 11:00 AM EDT Office Visit [facility] [place] [address] [address] Yobani Valle MD [address] [place] [address] [facility] [place] Start: 04-22-2023 End: 04-22-2023 Patient encounter procedure 04/22/2023 11:15 AM EST Office Visit [address] [place] [address] Arley Godoy MD [address] [place] [address], [place] [address] [facility] Start: 03-20-2023 End: 03-20-2023 ambulatory 03/20/2023 2:00 PM EST Rehab Services Visit [facility] Therapy [address] [place] [address], [place] [phone] Gunjan Godoy MD [address] [place] [address] [place] [address] Omer Gonsalez SLP [address] [place] [phone] [facility] Start: 03-18-2023 End: 03-18-2024 Comprehensive metabolic 2000 panel - Serum or Plasma COMPREHENSIVE METABOLIC PANEL Lab Routine Severe protein-calorie malnutrition Expected: 03/18/2023, Expires: 03/18/2024 [facility] Comment on above: Expected: 03/18/2023, Expires: Start: 03-18-2023 End: 03-18-2024 Prealbumin [Mass/volume] in Serum or Plasma PREALBUMIN Lab Routine Severe protein-calorie malnutrition Expected: 03/18/2023, Expires: 03/18/2024 [facility] Comment on above: Expected: 03/18/2023, Expires: Start: 03-18-2023 End: 03-18-2024 Transferrin [Mass/volume] in Serum or Plasma TRANSFERRIN Lab Routine Severe protein-calorie malnutrition Expected: 03/18/2023, Expires: 03/18/2024 [facility] Comment on above: Expected: 03/18/2023, Expires: Start: 03-12-2023 End: 03-12-2023 Patient encounter procedure 03/12/2023 10:00 AM EST Appointment [facility] [address] [place] [address] Sushma Brandon MD [address] [place] [phone] [facility] Start: 02-21-2023 End: 02-22-2024 LIPID PANEL W CALCULATED LDL LIPID PANEL W CALCULATED LDL Lab Routine Hyperlipidemia, unspecified hyperlipidemia type Expected: 02/21/2023, Expires: 02/22/2024 [facility] Comment on above: Expected: 02/21/2023, Expires: Start: 02-21-2023 End: 02-22-2024 PSA screening PSA, SCREENING Lab Routine Prostate cancer screening Expected: 02/21/2023, Expires: 02/22/2024 [facility] Comment on above: Expected: 02/21/2023, Expires: 5 Start: 02-18-2023 End: 02-18-2023 Patient encounter procedure 02/18/2023 10:00 AM EST Office Visit [facility] [address] [place] [phone] Jim Holder MD [address] [facility] [address] [place] [address] [facility] Start: 02-17-2023 Advance Directive Discussion Advance Directive Discussion [facility] Start: 02-17-2023 Behavioral Health Screening Behavioral Health Screening [facility] Start: 02-17-2023 Depression Assessment Depression Assessment [facility] Start: 12-13-2022 BP CONTROLLED (<130/80) BP CONTROLLED (<130/80) [facility] Start: 12-06-2022 COVID-19 VACCINE () COVID-19 VACCINE () [facility] Start: 12-06-2022 Covid-19 Vaccine () Covid-19 Vaccine ( season) [facility] Start: 11-12-2022 Influenza vaccination LUNG CANCER SCREENING [facility] Start: 10-18-2022 Influenza vaccination [facility] Start: 10-10-2022 End: 12-10-2022 CBC W Auto Differential panel - Blood CBC + DIFF Lab Routine Erythrocytosis 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) Expected: 10/10/2022, Expires: 12/10/2022 [facility] Work Phone: Comment on above: Expected: 10/10/2022, Expires: 3 Start: 09-09-2022 End: 11-09-2022 CBC W Auto Differential panel - Blood CBC + DIFF Lab Routine Erythrocytosis 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) Expected: 09/09/2022, Expires: 11/09/2022 [facility] Work Phone: Comment on above: Expected: 09/09/2022, Expires: Start: 08-29-2022 End: 08-29-2022 ambulatory 08/29/2022 3:30 PM EDT Treatment [facility] Speech [facility] [address] [place] [address] Jim Holder MD [address] [address] Ani Ruiz SLP Discharge Disposition: Home [facility] Speech [facility] Start: 08-22-2022 End: 08-22-2022 ambulatory 08/22/2022 2:45 PM EDT Treatment [facility] Speech [facility] [address] [place] [address] Jim Holder MD [address] [address] Maral [place] SLP Discharge Disposition: Home [facility] Therapy Start: 08-19-2022 End: 08-19-2022 Patient encounter procedure 08/19/2022 10:45 AM EDT Office Visit [facility] [address] [place] [phone] Jim Holder MD [address] [facility] [address] [place] [address] [facility] Start: 08-13-2022 End: 08-13-2022 Patient encounter procedure 08/13/2022 Office Visit Family Medicine Richy Emerson MD [address] [place] [phone] [facility] Start: 08-08-2022 End: 02-07-2023 CBC,PLATELETS CBC,PLATELETS Lab Routine Testicular hypofunction Expected: 08/08/2022 (Approximate), Expires: 02/07/2023 [facility] Comment on above: Expected: 08/08/2022 (Approximate), Expi res: 02/07/2023 Start: 08-08-2022 End: 02-07-2023 Comprehensive metabolic 2000 panel - Serum or Plasma COMPREHENSIVE METABOLIC PANEL Lab Routine Hyperlipidemia, unspecified hyperlipidemia type Expected: 08/08/2022 (Approximate), Expires: 02/07/2023 [facility] Comment on above: Expected: 08/08/2022 (Approximate), Expi res: 02/07/2023 Start: 08-08-2022 End: 02-07-2023 Hemoglobin A1c/Hemoglobin.total in Blood HEMOGLOBIN A1C Lab Routine Prediabetes Expected: 08/08/2022 (Approximate), Expires: 02/07/2023 [facility] Comment on above: Expected: 08/08/2022 (Approximate), Expi res: 02/07/2023 Start: 08-08-2022 End: 02-07-2023 LIPID PANEL W CALCULATED LDL LIPID PANEL W CALCULATED LDL Lab Routine Hyperlipidemia, unspecified hyperlipidemia type Expected: 08/08/2022 (Approximate), Expires: 02/07/2023 [facility] Comment on above: Expected: 08/08/2022 (Approximate), Expi res: 02/07/2023 Start: 08-08-2022 End: 02-07-2023 Testosterone [Mass/volume] in Serum or Plasma TESTOSTERONE Lab Routine Testicular hypofunction Expected: 08/08/2022, Expires: 02/07/2023 [facility] Comment on above: Expected: 08/08/2022, Expires: 3 Start: 07-23-2022 Fasting lipid profile LIPID SCREENING [facility] Work Phone: Start: 06-13-2022 End: 08-13-2022 CBC W Auto Differential panel - Blood CBC + DIFF Lab Routine Erythrocytosis 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) Expected: 06/13/2022, Expires: 08/13/2022 [facility] Work Phone: Comment on above: Expected: 06/13/2022, Expires: 3 Start: 06-13-2022 End: 08-13-2022 Comprehensive metabolic 2000 panel - Serum or Plasma COMP METABOLIC PANEL Lab Routine Erythrocytosis 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) Expected: 06/13/2022, Expires: 08/13/2022 [facility] Work Phone: Comment on above: Expected: 06/13/2022, Expires: 3 Start: 05-18-2022 Screening for malignant neoplasm of colon [facility] Start: 05-15-2022 BP CONTROLLED (<130/80) BP CONTROLLED (<130/80) [facility] Start: 05-14-2022 Influenza vaccination LUNG CANCER SCREENING [facility] Start: 03-08-2022 COVID-19 VACCINE (5 - Moderna series) COVID-19 VACCINE (5 - Moderna series) [facility] Start: 02-17-2022 ADVANCE DIRECTIVE DISCUSSION ADVANCE DIRECTIVE DISCUSSION [facility] Start: 02-17-2022 DEPRESSION ASSESSMENT DEPRESSION ASSESSMENT [facility] Start: 02-07-2022 End: 02-07-2022 Patient encounter procedure 02/07/2022 Office Visit Family Medicine Richy Emerson MD [address] [place] [address] [facility] Start: 11-22-2021 End: 01-22-2022 Thyrotropin [Units/volume] in Serum or Plasma [facility] Work Phone: Comment on above: Expected: 11/22/2021, Expires: Start: 10-17-2021 End: 10-17-2021 Patient encounter procedure 10/17/2021 Office Visit Family Richy Marin MD [address] [place] [address] [facility] Start: 07-18-2021 End: 07-18-2022 CBC,PLATELETS CBC,PLATELETS Lab Routine Testicular hypofunction Expected: 07/18/2021 (Approximate), Expires: 07/18/2022 [facility] Comment on above: Expected: 07/18/2021 (Approximate), Expi res: 07/18/2022 Start: 07-18-2021 End: 07-18-2022 Comprehensive metabolic 2000 panel - Serum or Plasma COMPREHENSIVE METABOLIC PANEL Lab Routine Hyperlipidemia, unspecified hyperlipidemia type Expected: 07/18/2021 (Approximate), Expires: 07/18/2022 [facility] Comment on above: Expected: 07/18/2021 (Approximate), Expi res: 07/18/2022 Start: 07-18-2021 End: 07-18-2022 LIPID PANEL W CALCULATED LDL LIPID PANEL W CALCULATED LDL Lab Routine Hyperlipidemia, unspecified hyperlipidemia type Expected: 07/18/2021 (Approximate), Expires: 07/18/2022 [facility] Comment on above: Expected: 07/18/2021 (Approximate), Expi res: 07/18/2022 Start: 07-18-2021 End: 07-18-2022 Testosterone [Mass/volume] in Serum or Plasma TESTOSTERONE Lab Routine Testicular hypofunction Expected: 07/18/2021, Expires: 07/18/2022 [facility] Comment on above: Expected: 07/18/2021, Expires: Start: 07-18-2021 End: 07-18-2021 Patient encounter procedure 07/18/2021 Office Visit Family Richy Marin MD [address] [place] [address] [facility] Start: 06-15-2021 End: 08-15-2021 CBC W Auto Differential panel - Blood CBC + DIFF Lab Routine Secondary polycythemia Expected: 06/15/2021, Expires: 08/15/2021 [facility] Work Phone: Comment on above: Expected: 06/15/2021, Expires: Start: 05-18-2021 COLON, Provider: Vasu Jaimes, Status: Pen, Time: 10:00 AM COLON, Provider: Vasu Jaimes, Status: Pen, Time: 10:00 AM -[facility] Work Phone: Start: 04-23-2021 COVID-19 VACCINE (4 - Booster for Moderna series) COVID-19 VACCINE (4 - Booster for Moderna series) [facility] Start: 04-05-2021 End: 04-06-2022 traMADol 50 mg Oral Tablet Every 6 Hours PRN ; Tablet (ULTRAM)DOSE = 100 mg Oral Every 6 Hours, PRN Pain - Mod (4-6) Start: 05-Apr-2021 End: 05-Apr-2022 Ordered: 05-Apr-2021 Dialarley, Delmer Intent [facility] Start: 04-05-2021 End: 04-06-2022 [facility] Start: 02-18-2021 COVID-19 VACCINE (4 - Booster for Moderna series) COVID-19 VACCINE (4 - Booster for Moderna series) [facility] Start: 02-17-2021 ADVANCE DIRECTIVE DISCUSSION ADVANCE DIRECTIVE DISCUSSION [facility] Start: 02-17-2021 DEPRESSION ASSESSMENT DEPRESSION ASSESSMENT [facility] Start: 02-25-2019 Prostate specific antigen measurement PROSTATE CANCER SCREENING DISCUSSION [facility] Start: 03-04-2018 End: 03-04-2018 Ambulatory 03/04/2018 Office Visit Family Medicine Richy Emerson MD [address] [place] [address] [phone] [facility] Start: 07-23-2015 Abdominal aortic aneurysm screening [facility] Start: 07-23-2015 Fall risk assessment Falls Risk Assessment [facility] Start: 07-23-2015 Pneumococcal vaccination [facility] Start: 07-23-2015 Pneumococcal Vaccine: 65+ (1 - PCV) Pneumococcal Vaccine: 65+ (1 - PCV) [facility] Start: 07-23-2015 Pneumococcal Vaccine: 65+ (1 of 1 - PCV) Pneumococcal Vaccine: 65+ (1 of 1 - PCV) [facility] Start: 07-23-2015 Pneumococcal Vaccine: Age 65+ (1 - PCV) Pneumococcal Vaccine: Age 65+ (1 - PCV) [facility] Start: 07-23-2015 PNEUMOCOCCAL: 65+ (1 - PCV) PNEUMOCOCCAL: 65+ (1 - PCV) [facility] Start: 07-23-2015 PNEUMOVAX AGE 65 AND OVER WITH 5YR LOOKBACK (#1) PNEUMOVAX AGE 65 AND OVER WITH 5YR LOOKBACK (#1) [facility] Start: 2010 Hepatitis B vaccination HEP B VACCINE (1 of 3 - Risk 3-dose series) [facility] Start: 2010 Hepatitis B Vaccines (1 of 3 - Risk 3-dose series) Hepatitis B Vaccines (1 of 3 - Risk 3-dose series) [facility] Start: 2010 Respiratory Syncytial Virus Immunization: Risk, 60-74 Risk, or 75+ (1 - Risk 60-74 years 1-dose series) Respiratory Syncytial Virus Immunization: Risk, 60-74 Risk, or 75+ (1 - Risk 60-74 years 1-dose series) [facility] Start: 2010 RSV Vaccine (1 - 1-dose 60+ series) RSV Vaccine (1 - 1-dose 60+ series) [facility] Start: 2000 Colonoscopy COLON CANCER SCREENING DISCUSSION [facility] Work Phone: Start: 2000 Prostate specific antigen measurement PROSTATE CANCER SCREENING DISCUSSION [facility] Work Phone: Start: 2000 Protein mass conc COLON CANCER SCREENING DISCUSSION [facility] Work Phone: Start: 2000 Screening for malignant neoplasm of colon Flexible sigmoidoscopy [facility] Start: 2000 SHINGRIX VACCINE (1 of 2) SHINGRIX VACCINE (1 of 2) [facility] Start: 07-23-1995 COLOGUARD (FIT-DNA) COLOGUARD (FIT-DNA) [facility] Start: 07-23-1995 Colonoscopy [facility] Start: 07-23-1995 COLORECTAL CANCER SCREENING COLORECTAL CANCER SCREENING [facility] Start: 07-23-[address] COLONOGRAPHY [facility] Start: 07-23-1995 FECAL OCCULT BLOOD FECAL OCCULT BLOOD [facility] Start: 07-23-1995 Screening for malignant neoplasm of colon [facility] Start: 07-23-1995 SIGMOIDOSCOPY SIGMOIDOSCOPY [facility] Start: 1985 Lipid 1996 panel - Serum or Plasma Lipid Screening [facility] Start: 1985 LIPID SCREEN LIPID SCREEN [facility] Start: 1972 DTaP/Tdap/Td Vaccines (1 - Tdap) DTaP/Tdap/Td Vaccines (1 - Tdap) [facility] Start: 1969 Hepatitis A Vaccines (1 of 2 - Risk 2-dose series) Hepatitis A Vaccines (1 of 2 - Risk 2-dose series) [facility] Start: 1969 Pneumococcal vaccination PNEUMOCOCCAL VACCINE SERIES (1 of 2 - PCV) [facility] Start: 1969 Third diphtheria, tetanus and acellular pertussis (DTaP) vaccination TDAP (ADULT) [facility] Start: 1969 Urine microalbumin profile [facility] Start: 1968 ANNUAL PCP TEAM CHRONIC DISEASE VISIT ANNUAL PCP TEAM CHRONIC DISEASE VISIT [facility] Start: 1968 Anxiety Screening Anxiety Screening [facility] Start: 1968 BP CONTROLLED (<130/80) BP CONTROLLED (<130/80) [facility] Start: 1968 Depression Screening Depression Screening [facility] Start: 1968 HEPATITIS C SCREENING HEPATITIS C SCREENING [facility] Start: 1968 Hepatitis C screening Hepatitis C Screening [facility] Start: 1968 Tetanus vaccination TETANUS [facility] Start: 1962 Adult depression screening assessment [facility] Start: 1956 Pneumococcal vaccination [facility] Start: 1953 History and physical examination, annual for health maintenance Wellness Visit [facility] Start: 1953 Medicare Wellness Visit Medicare Wellness Visit [facility] Start: 07-23-1951 Hepatitis B Surface Antibody Hepatitis B Surface Antibody [facility] Start: 1950 ABDOMINAL AORTIC ANEURYSM SCREENING ABDOMINAL AORTIC ANEURYSM SCREENING [facility] Start: 1950 Abdominal aortic aneurysm screening [facility] Start: 1950 Cyanocobalamin vitamin b-12 Vitamin B-12 [facility] Start: 1950 Lipid panel Lipid Panel [facility] Start: 1950 Medicare Annual Wellness Visit Medicare Annual Wellness Visit (AWV) [facility] Start: 1950 Prostate specific antigen measurement PSA Level [facility] Start: 1950 Screening for malignant neoplasm of colon [facility] Start: 1950 Screening for osteoporosis Bone Density Scan [facility] Start: 1950 TB Test TB Test [facility] Start: 1950 Tetanus vaccination [facility] ALK PHOSPHATASE FRACTIONATED ALK PHOSPHATASE FRACTIONATED Lab Today 05/09/2023 2:03 PM EDT [employer] [facility] End: 11-17-2025 B12/Folate B12/Folate Lab Routine Mild cognitive impairment 1 Occurrences starting 11/17/2024 until 11/17/2025 [facility] Work Phone: Comment on above: 1 Occurrences starting 11/17/2024 until 11/17/2025 End: 03-03-2023 Bacteria identified in Blood by [facility] Comment on above: One Time for 1 Occurrences starting 02/17 until 03/03/2023 End: 04-19-2023 Bacteria identified in Blood by Culture [facility] Comment on above: One Time for 1 Occurrences starting 03/2023 until 04/19/2023 Bacteria identified in Blood by Culture BLOOD CULTURE Microbiology [facility] 05/09/2023 8:25 AM EDT [employer] [facility] Bacteria identified in Blood by Culture [employer] [facility] Bacteria identified in Blood by Culture [facility] Bacteria identified in Blood by Culture BLOOD CULTURE Microbiology [facility] 07/04/2024 10:55 AM EDT [employer] [facility] Bacteria identified in Blood by Culture [facility] Bacteria identified in Blood by Culture Blood Culture Aerobic/Anaerobic Microbiology [facility] 11/17/2024 6:53 PM EDT [facility] Work Phone: Bacteria identified in Blood by Culture [facility] Work Phone: Bacteria identified in Sputum by Aerobe culture Sputum Aerobic Culture Microbiology Routine 12/16/2024 10:32 AM EDT [facility] Work Phone: End: 12-13-2022 CBC W Auto Differential panel - Blood CBC + DIFF Lab Routine Erythrocytosis 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) Once per month for 12 Occurrences starting 12/13/2021 until 12/13/2022 [facility] Work Phone: Comment on above: Once per month for 12 Occurrences starti ng 12/13/2021 until 12/13/2022 End: 08-09-2025 CBC W Auto Differential panel - Blood COMPLETE BLOOD COUNT AND DIFFERENTIAL Lab Routine History of tongue cancer Once per month for 12 Occurrences starting 08/09/2024 until 08/09/2025 [facility] Comment on above: Once per month for 12 Occurrences starti ng 08/09/2024 until 08/09/2025 End: 09-24-2024 Comprehensive metabolic 2000 panel - Serum or Plasma Comprehensive Metabolic Panel Lab Routine Hypertension, unspecified type 1 Occurrences starting 09/26/2023 until 09/24/2024 [facility] Work Phone: Comment on above: 1 Occurrences starting 09/26/2023 until 09/24/2024 End: 08-09-2025 Comprehensive metabolic 2000 panel - Serum or Plasma COMPREHENSIVE METABOLIC PANEL Lab Routine History of tongue cancer Once per month for 12 Occurrences starting 08/09/2024 until 08/09/2025 [facility] Comment on above: Once per month for 12 Occurrences starti ng 08/09/2024 until 08/09/2025 End: 11-11-2023 Continuous Pulse oximetry, In Phase 1 Continuous Pulse oximetry, In Phase 1 Respiratory Care Routine Continuous until discontinued starting 11/11/2023 [facility] Work Phone: Comment on above: Continuous until discontinued starting 0 11/11/2023 End: 05-26-2024 Continuous Pulse oximetry, In Phase 1 Continuous Pulse oximetry, In Phase 1 Respiratory Care Routine Continuous until discontinued starting 05/26/2024 [facility] Work Phone: Comment on above: Continuous until discontinued starting 0 05/26/2024 End: 08-21-2024 CT Abdomen and Pelvis W contrast IV CT ABD/PEL W IVCON Radiology Routine History of tongue cancer Lung nodules 1 Occurrences starting 07/23/2023 until 08/21/2024 [facility] Comment on above: 1 Occurrences starting 07/23/2023 until 08/21/2024 End: 01-22-2024 CT Abdomen and Pelvis W contrast IV [facility] Comment on above: 1 Occurrences starting 01/22/2024 until 01/22/2024 End: 2024 CT Chest W contrast IV CT CHEST W IVCON Radiology Routine Aspiration into lower respiratory tract, subsequent encounter History of tongue cancer 1 Occurrences starting 06/23/2023 until 2024 [facility] Work Phone: Comment on above: 1 Occurrences starting 06/23/2023 until 2024 End: 08-21-2024 CT Chest W contrast IV CT CHEST W IVCON Radiology Routine History of tongue cancer Lung nodules 1 Occurrences starting 07/23/2023 until 08/21/2024 [facility] Comment on above: 1 Occurrences starting 07/23/2023 until 08/21/2024 End: 01-22-2024 CT Chest W contrast IV [facility] Work Phone: Comment on above: 1 Occurrences starting 01/22/2024 until 01/22/2024 End: 04-01-2024 CT Chest WO contrast [facility] Comment on above: 1 Occurrences starting 04/01/2024 until 04/01/2024 End: 09-08-2025 CT Chest WO contrast CT CHEST WO IVCON Radiology Routine Multiple lung nodules on CT Aspiration into lower respiratory tract, subsequent encounter 1 Occurrences starting 08/09/2024 until 09/08/2025 [facility] Work Phone: Comment on above: 1 Occurrences starting 08/09/2024 until 09/08/2025 CT Chest WO contrast CT CHEST WO IVCON Radiology Routine Multiple lung nodules on CT Aspiration into lower respiratory tract, subsequent encounter 08/16/2024 1:30 PM EDT [facility] Work Phone: End: 06-14-2022 Ct thorax w/o contrast material CT LUNG FOLLOWUP WO IVCON Radiology Routine Lung nodules 1 Occurrences starting 05/15/2021 until 06/14/2022 [facility] Work Phone: Comment on above: 1 Occurrences starting 05/15/2021 until 06/14/2022 End: 11-15-2023 Extra Urine [employer] [facility] Work Phone: Comment on above: Once for 1 Occurrences starting 11/15/19 24 until 11/15/2023 End: 11-17-2025 Flexitest (Quest Test Code #68593; PT 217) Flexitest (Quest Test Code #46463; PT 217) Lab Routine Mild cognitive impairment 1 Occurrences starting 11/17/2024 until 11/17/2025 [facility] Comment on above: 1 Occurrences starting 11/17/2024 until 11/17/2025 End: 05-09-2023 [employer] Comment on above: One Time for 1 Occurrences starting 04/18 until 05/09/2023 End: 06-16-2023 [email or web address] Comment on above: One Time for 1 Occurrences starting 05/19 until 06/16/2023 End: 07-05-2024 [email or web address] Comment on above: One Time for 1 Occurrences starting 06/17 until 07/05/2024 Insj prph ctr vad w/ subq port age 5 yr/> INSERTION SUBCUTANEOUS PORT Left inguinal hernia Venous insufficiency [facility] Main OR Laparoscopy surg rpr initial inguinal hernia REPAIR HERNIA INGUINAL ROBOTIC XI Left inguinal hernia Venous insufficiency [facility] Main [place] End: 09-24-2024 Lipid 1996 panel - Serum or Plasma Lipid Panel Lab Routine Hyperlipidemia, unspecified hyperlipidemia type 1 Occurrences starting 09/26/2023 until 09/24/2024 [facility] Comment on above: 1 Occurrences starting 09/26/2023 until 09/24/2024 End: 09-24-2024 Magnesium [Mass/volume] in Serum or Plasma Magnesium Lab Routine Hypertension, unspecified type 1 Occurrences starting 09/26/2023 until 09/24/2024 [facility] Comment on above: 1 Occurrences starting 09/26/2023 until 09/24/2024 End: 11-18-2025 MR Brain WO and W contrast IV MR Brain With And Without Contrast Imaging Routine Mild cognitive impairment 1 Occurrences starting 11/17/2024 until 11/18/2025 [facility] Comment on above: 1 Occurrences starting 11/17/2024 until 11/18/2025 PFT COMPLETE PFT COMPLETE PFT Routine Chronic obstructive pulmonary disease, unspecified COPD type Centrilobular emphysema Interstitial lung disease Reactive airway disease without complication, unspecified asthma severity, unspecified whether persistent Ordered: 06/04/2023 [employer] [facility] Comment on above: Ordered: 06/04/2023 Standard ECG ECG ECG STAT 9:13 AM [facility] [employer] [facility] Standard ECG ECG ECG STAT 07/2023 7:28 PM [facility] [employer] [facility] Work Phone: Standard ECG ECG ECG STAT 5:08 PM ED [employer] [facility] Standard ECG ECG ECG STAT 11:18 AM ED [employer] [facility] Standard ECG ECG ECG STAT 7:46 AM [facility] [employer] [facility] End: 11-15-2023 Urinalysis complete W Reflex Culture panel - Urine [facility] Service Area Work Phone: Comment on above: STAT (Lab) for 1 Occurrences starting until 11/15/2023 End: 07-24-2023 Videofluoroscopy swallow XR Modifed Barium Swallow Imaging Routine Pharyngoesophageal dysphagia 1 Occurrences starting 07/23/2022 until 07/24/2023 [facility] Work Phone: Comment on above: 1 Occurrences starting 07/23/2022 until 07/24/2023 End: 07-14-2025 XR Chest PA and Lateral and AP lateral-decubitus XR Chest AP/PA and LAT Imaging Routine Pneumonia of both lower lobes due to infectious organism Cough, unspecified type 1 Occurrences starting 07/14/2024 until 07/14/2025 [facility] Work Phone: Comment on above: 1 Occurrences starting 07/14/2024 until 07/14/2025 XR Chest PA and Late ral and AP lateral-decubitus XR Chest AP/PA and LAT Imaging Routine Pneumonia of both lower lobes due to infectious organism Cough, unspecified type 07/14/2024 9:00 AM EDT [facility] Immunizations Immunization Date Immunization Notes Care Provider [facility] 11-24-2023 influenza virus vaccine, unspecified formulation Ulices Clark DO Work Phone: [facility] 10-11-2022 influenza virus vaccine, unspecified formulation Lorenzo Rivas MD Work Phone: [facility] 12-24-2020 MODERNA SARS-COV-2 (COVID-19), mRNA, Lnp-s, Pf, 100 Mcg/ 0.5 mL dose Richy Emerson MD Work Phone: [facility] 12-01-2020 influenza, injectabl e, quadrivalent, preservative free Richy Emerson MD Work Phone: [facility] 05-19-2020 MODERNA SARS-COV-2 (COVID-19), mRNA, Lnp-s, Pf, 100 Mcg/ 0.5 mL dose Richy Emerson MD Work Phone: [facility] 04-20-2020 MODERNA SARS-COV-2 (COVID-19), mRNA, Lnp-s, Pf, 100 Mcg/ 0.5 mL dose Richy Emerson MD Work Phone: [facility] 11-04-2019 Influenza, High-dose Seasonal, Quadrivalent, Preservative Free Richy Emerson MD Work Phone: [facility] 11-16-2018 influenza, high dose seasonal, preservative-free Richy Emerson MD Work Phone: [facility] 12-29-2017 zoster vaccine recombinant Richy Steelekins [facility] Work Phone: 10-30-2017 influenza, high dose seasonal, preservative-free lisa Emerson [facility] Work Phone: 10-30-2017 zoster vaccine recombinant lisa [facility] Work Phone: 10-23-2016 influenza, high dose seasonal, preservative-free Richy Emerson [facility] 11-17-2015 influenza, high dose seasonal, preservative-free Richy Emerson MD Work Phone: [facility] 11-17-2013 influenza virus vaccine, whole virus Richy Emerson MD Work Phone: [facility] 06-22-2013 measles, mumps and rubella virus vaccine Richy Emerson MD Work Phone: [facility] 01-26-2008 influenza virus vaccine, whole virus Richy Emerson MD Work Phone: [facility] 01-13-2007 influenza virus vaccine, whole virus Richy Emerson MD Work Phone: [facility] zoster vaccine, recombinant, adjuvanted, (SHINGRIX, PF,) 50 mcg/0.5 mL injection Natalia Smith RN Work Phone: [facility] Comment on above: Shingrix (PF) 50 mcg /0.5 mL intramuscular suspension, kit zoster vaccine, recombinant, adjuvanted, (SHINGRIX, PF,) 50 mcg/0.5 mL injection Sushma Brandon Work Phone: [facility] Comment on above: Shingrix (PF) 50 mcg /0.5 mL intramuscular suspension, kit zoster RZV vaccine (SHINGRIX) 50 mcg/0.5 mL injection Linda Jean Baptiste APRN.CNP Work Phone: [facility] Comment on above: Shingrix (PF) 50 mcg /0.5 mL intramuscular suspension, kit zoster RZV vaccine (SHINGRIX) 50 mcg/0.5 mL injection Naida Phillips MD Work Phone: [facility] Comment on above: Shingrix (PF) 50 mcg /0.5 mL intramuscular suspension, kit zoster RZV vaccine (SHINGRIX) 50 mcg/0.5 mL injection Naida Phillips MD Work Phone: [facility] Comment on above: Shingrix (PF) 50 mcg /0.5 mL intramuscular suspension, kit zoster RZV vaccine (SHINGRIX) 50 mcg/0.5 mL injection Tad Madison MD Work Phone: [facility] Comment on above: Shingrix (PF) 50 mcg /0.5 mL intramuscular suspension, kit zoster RZV vaccine (SHINGRIX) 50 mcg/0.5 mL injection Linda Jean Baptiste APRN.PROJECT FACILITATOR Work Phone: [facility] Comment on above: Shingrix (PF) 50 mcg /0.5 mL intramuscular suspension, kit Payers Date Payer Category Payer Self-pay 2023 Dual Eligibility Medicare/Medicaid Organization [facility] [id number] 2022 Medicare (Managed Care) 1.2. [id number] 2022 Medicare PPO [employer] MEDICARE PPO [id number] 2022 Medicare [id number] 2021 Unknown [id number] 2015 Medicare [id number] 2015 Medicare [id number] .[id number] 2015 Private Health Insurance [id number] .[id number] 2015 Private Health Insurance [id number] .[id number] 2015 Unknown 2015 Medicare [id number] 1950 Unknown [id number] 2.16.840.1.209519.3.579 .2.983 1950 Unknown [id number] 2.16.840.1.851780.3.579 .2.983 1950 Unknown [id number] 2.16.840.1.546683.3.579 .2.983 1950 Unknown [id number] 2.16.840.1.071532.3.579 .2.983 1950 Unknown [id number] 2.16.840.1.890972.3.579 .2.983 1950 Unknown [id number] 2.16.840.1.219807.3.579 .2.98 1950 Unknown [id number] 2.16.840.1.195144.3.579 .2.983 1950 Unknown [id number] 2.16.840.1.293373.3.579 .2.1242 1950 Unknown [id number] 2.16.840.1.071730.3.579 .2.1242 1950 Unknown [id number] 2.16.840.1.461570.3.579 .2.1242 1950 Unknown [id number] 2.16.840.1.195538.3.579 .2.1242 1950 Unknown [id number] 2.16.840.1.505706.3.579 .2. 1950 Unknown [id number] 2.16.840.1.248213.3.579 .2. 1950 Unknown [id number] 2.16.840.1.618618.3.579 .2. 1950 Unknown [id number] 2.16.840.1.881806.3.579 .2. 1950 Unknown [id number] 2.16.840.1.725783.3.579 .2. 1950 Unknown [id number] 2.16.840.1.146702.3.579 .2.1243 1950 Unknown [id number] 2.16.840.1.547480.3.579 .2.1243 1950 Unknown [id number] 2.16.840.1.279527.3.579 .2.1243 1950 Unknown [id number] 2.16.840.1.203960.3.579 .2.1243 1950 Unknown [id number] 2.16.840.1.085961.3.579 .2.1243 1950 Unknown [id number] 2.16.840.1.640995.3.579 .2. 1950 Unknown [id number] 2.16.840.1.032986.3.579 .2. 1950 Unknown [id number] 2.16.840.1.870919.3.579 .2. 1950 Unknown [id number] 2.16840.1.351773.3.579 .2. 1950 Unknown [id number] 2.16.840.1.088011.3.579 .2. 1950 Unknown [id number] 2.840.1.222888.3.579 .2 1950 Unknown [id number] 2.840.1.739658.3.579 .2 1950 Unknown [id number] 2.840.1.248964.3.579 .2 1950 Unknown [id number] 2.840.1.806542.3.579 .2 1950 Unknown [id number] 2.840.1.748181.3.579 .2 1950 Unknown [id number] 2.840.1.245979.3.579 .2 1950 Unknown [id number] 2.16840.1.757618.3.579 .2 1950 Unknown [id number] 2.16.840.1.360487.3.579 .2 1950 Unknown [id number] 2.16.840.1.515344.3.579 .2 1950 Unknown [id number] 2.16840.1.899294.3.579 .2 1950 Unknown [id number] 2.16840.1.643660.3.579 .2.903 1950 Unknown [id number] 2.16.840.1.905066.3.579 .2. 1950 Unknown [id number] 2.16.840.1.936974.3.579 .2.2 1950 Unknown [id number] 2.16.840.1.468761.3.579 .2. 1950 Unknown [id number] 2.16.840.1.377344.3.579 .2. 1950 Unknown [id number] 2.16.840.1.910628.3.579 .2. 1950 Unknown [id number] 2.16.840.1.219715.3.579 .2.2 1950 Unknown [id number]. 1950 Unknown [id number] .[id number]. 1950 Unknown [id number] .2. 1950 Unknown [id number] .2. 1950 Unknown [id number] .2. Unknown [id number] Social History Date Type Detail Facility Start: 01-01-2018 End: 09-25-2023 Tobacco smoking status NHIS Former smoker [facility] Start: 02-18-1960 End: 09-19-2008 History of tobacco use Cigarette Smoker [facility] Work Phone: Start: 1950 Sex Assigned At Not on file [facility] Work Phone: Tobacco smoking consumption unknown [facility] Start: 08-21-2016 End: 09-25-2023 Tobacco use and exposure Smokeless tobacco non-user [facility] Start: 04-18-2021 End: 10-08-2024 Alcohol intake Current non-drinker of alcohol (finding) [facility] Start: 02-18-1960 End: 09-19-2008 History of tobacco use Current smoker [facility] Start: 08-30-2013 End: 12-16-2024 Cigarettes smoked current (pack per day) - Reported 2 [facility] Start: 08-30-2013 End: 07-08-2023 Tobacco Comment Quit [facility] Start: 05-04-2021 End: 06-01-2024 Exposure to SARS-CoV-2 (event) Not sure [facility] Start: 07-23-2022 End: 12-15-2024 Alcohol intake Ex-drinker (finding) [facility] Start: 06-20-2021 End: 12-16-2024 Tobacco use panel [facility] Start: 06-20-2021 Gender identity Identifies as male gender (finding) [facility] Start: 06-20-2021 Sexual orientation Heterosexual (finding) [facility] Start: 01-19-2012 End: 01-12-2022 Adult Depression Screening Assessment 0 [facility] Has the [employer], [employer], oil, or water company threatened to shut off services in your home in past 12Mo No [employer] (I/We) worried wheth er (my/our) food would run out before (I/we) got money to buy more. [facility] true [facility] History of tobacco use [facility] smoker [facility] Start: 09-14-2013 Sex Male (finding) [facility] Medical Equipment Procedure Code Equipment Code Equipment Origin al Text Equipment Identifier Dates Gastrostomy Peg Tube [id number] Sta rt: 04-07-2023 Avanos Bolus Gastrostomy Feeding Tube [id number] Start: 11-11-2023 Avanos Akash-Matthew Gastrostomy Feeding Tube Extension Seets With [employer] 24fr 3.5cm [id number] Start: 05-26-2024 Goals Date Patient Goal Desired Activity /State Personal health goal Comment on above: Formatting of this n ote might be different from the original. Pt will be independent in a home exercise program to improve motion of the scapulothoracic joint, AC joint, GH joint and progressive strengthening of the rotator cuff, scapular stabilizers and UE to return to desired ADL. Pt will demonstrate pain-free AROM with normal overpressure of the affected shoulder equal to the unaffected shoulder to allow performance of normal activities of daily living and recreational activities. Pt will have decreased subjective pain to 0-1/10 or to an acceptable level of tolerance to allow patient to sleep, perform normal grooming/hygiene activity, dressing, and normal activities of daily living without pain. Pt will demonstrate full, pain-free PROM of the affected shoulder equal to the unaffected shoulder to allow patient to dress, groom and sleep in preferred positions without pain. Pt will demonstrate at least symmetrical or 4+/5 shoulder strength enabling use of the UE for normal lifting, carrying, pushing/pulling activities without pain. Personal health goal Comment on above: Formatting of this n ote might be different from the original. 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 Short Term Goals: -Pt will complete designated bolus control sequence throughout swallow process in 90% of trials. -Pt will reach or exceed target threshold for muscle activity during effortful swallow exercises in 90% of trials, as measured by sEMG. -Pt will improve tongue base retraction to mild deficit for improved bolus drive and clearance, as measured by repeat instrumental assessment. -Pt will improve hyolaryngeal elevation and anterior excursion for improved pharyngeal clearance, as measured by repeat instrumental assessment. -Pt will improve pharyngeal constriction for improved pharyngeal clearance, as measured by repeat instrumental assessment. -Pt will demonstrate improved airway protection with elimination of aspiration of liquid consistencies and/or improved sensory response to aspiration as measured by repeat instrumental assessment. Comment on above: Formatting of this n ote might be different from the original. Pt will be independent in a home exercise program to improve motion of the scapulothoracic joint, AC joint, GH joint and progressive strengthening of the rotator cuff, scapular stabilizers and UE to return to desired ADL. Pt will demonstrate pain-free AROM with normal overpressure of the affected shoulder equal to the unaffected shoulder to allow performance of normal activities of daily living and recreational activities. Pt will have decreased subjective pain to 0-1/10 or to an acceptable level of tolerance to allow patient to sleep, perform normal grooming/hygiene activity, dressing, and normal activities of daily living without pain. Pt will demonstrate full, pain-free PROM of the affected shoulder equal to the unaffected shoulder to allow patient to dress, groom and sleep in preferred positions without pain. Pt will demonstrate at least symmetrical or 4+/5 shoulder strength enabling use of the UE for normal lifting, carrying, pushing/pulling activities without pain. Functional Status Date Assessment Result Facility 09-02-2024 Functional status 150/91 025 1:02 PM EDT Airam Carlisle MA 150 [facility] Work Phone: 09-02-2024 Vital signs 59 09/02/2024 1: 02 PM EDT Airam Carlisle MA [facility] Work Phone: 07-30-2024 Are you deaf, or do you have serious difficulty hearing Yes 07/30/2024 3:12 PM EDT Stacie Sands, DANIEL Yes [facility] 07-30-2024 Are you blind, or do you have serious difficulty seeing, even when wearing glasses No 07/30/2024 3:12 PM EDT Stacie Sands, DANIEL No [facility] 07-30-2024 Do you have serious difficulty walking or climbing stairs No 07/30/2024 3:12 PM EDT Stacie Sands, DANIEL No [facility] 07-30-2024 Do you have difficul ty dressing or bathing No 07/30/2024 3:12 PM EDT Stacie Sands, DANIEL No [facility] 07-30-2024 Because of a physica l, mental, or emotional condition, do you have difficulty doing errands alone such as visiting a physician's office or shopping No 07/30/2024 3:12 PM EDT Stacie Sands, DANIEL No [facility] 07-04-2024 Are you deaf, or do you have serious difficulty hearing Yes 07/04/2024 2:35 PM EDT Sarah Diza RN Yes [facility] 07-04-2024 Are you blind, or do you have serious difficulty seeing, even when wearing glasses No 07/04/2024 2:35 PM Sarah Hubbard, DANIEL No [facility] 07-04-2024 Do you have serious difficulty walking or climbing stairs No 07/04/2024 2:35 PM Sarah Hubbard, DANIEL No [facility] 07-04-2024 Do you have difficul ty dressing or bathing No 07/04/2024 2:35 PM Sarah Hubbard, DANIEL No [facility] 07-04-2024 Because of a physica l, mental, or emotional condition, do you have difficulty doing errands alone such as visiting a physician's office or shopping Yes 07/04/2024 2:35 PM Sarah Hubbard, DANIEL Yes [facility] 05-26-2024 [facility] 05-26-2024 [place] - 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 [C-SSRS] [facility] Work Phone: 05-26-2024 Functional status [facility] 11-15-2023 Functional status [facility] 11-15-2023 [facility] Work Phone: 11-11-2023 [place] - 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 [C-SSRS] [facility] Work Phone: 11-11-2023 [facility] Work Phone: 11-11-2023 Functional status [facility] 06-14-2023 Are you deaf, or do you have serious difficulty hearing Yes 06/14/2023 8:00 PM Kirk Fermin LPN Yes [facility] 06-14-2023 Are you blind, or do you have serious difficulty seeing, even when wearing glasses No 06/14/2023 8:00 PM Kirk Fermin LPN No [facility] 06-14-2023 Do you have serious difficulty walking or climbing stairs No 06/14/2023 8:00 PM Kirk Fermin LPN No [facility] 06-14-2023 Do you have difficul ty dressing or bathing No 06/14/2023 8:00 PM EDT Kirk Lopez LPN No [facility] 06-14-2023 Because of a physica l, mental, or emotional condition, do you have difficulty doing errands alone such as visiting a physician's office or shopping No 06/14/2023 8:00 PM EDT Kirk Lopez LPN No [facility] 09-15-2014 Are you deaf, or do you have serious difficulty hearing No 09/15/2014 10:18 AM EDT Genoveva Feldman MA No [facility] 09-15-2014 Are you blind, or do you have serious difficulty seeing, even when wearing glasses No 09/15/2014 10:18 AM EDT Genoveva Feldman MA [facility] 09-15-2014 Do you have serious difficulty walking or climbing stairs No 09/15/2014 10:18 AM EDT Genoveva Feldman MA [facility] 09-15-2014 Do you have difficul ty dressing or bathing No 09/15/2014 10:18 AM JOSHUAT Genoveva Feldman MA [facility] 09-15-2014 Because of a physica l, mental, or emotional condition, do you have difficulty doing errands alone such as visiting a physician's office or shopping No 09/15/2014 10:18 AM JOSHUAT Genoveva Feldman MA [facility] Functional observable [facility] Mental Status Date Assessment Result Facility 07-30-2024 Because of a physica l, mental, or emotional condition, do you have serious difficulty concentrating, remembering, or making decisions No 07/30/2024 3:12 PM EDT Stacie Sands, DANIEL No [facility] 07-04-2024 Because of a physica l, mental, or emotional condition, do you have serious difficulty concentrating, remembering, or making decisions No 07/04/2024 2:35 PM EDT Sraah Diaz, DANIEL No [employer] [facility] 05-26-2024 Cognitive function finding Negative 05/26/2024 9:02 AM EDT Johanna Beatty, DANIEL [facility] Work Phone: 06-14-2023 Because of a physica l, mental, or emotional condition, do you have serious difficulty concentrating, remembering, or making decisions No 06/14/2023 8:00 PM EDT Kirk Lopez LPN [employer] [facility] 04-06-2021 Cognitive functi ons [id number] [facility] 09-15-2014 Because of a physica l, mental, or emotional condition, do you have serious difficulty concentrating, remembering, or making decisions No 09/15/2014 10:18 AM EDT Genoveva Feldman MA [facility] Clinical Notes 04-10-2015 to 12-28-2024 Quick Note - Stacie Mace RN - 12/18/2024 2:36 PM EDTQuick Note - Stacie Mace RN - 12/18/2024 2:36 PM EDTPlan of Care - Stacie Mace RN - 12/18/2024 9:56 AM EDTDischarge Instructions Note Date & Type Note Facility 12-28-2024 Note Assessment/Plan: No problem-specific Assessment & Plan notes found for this encounter. Subjective: Amy Sun is a 74 y.o. male No chief complaint on file. Patient presents for hospital follow-up. He was hospitalized at [facility] 11/17/2024 for septic shock after presenting with shortness of breath and emesis. CT scan showed right upper and right middle lobe pneumonia. He was found to have sputum culture positive for MRSA sensitive to vancomycin, and was treated with this. Negative for COVID. He was discharged 11/22/2024 with linezolid and Augmentin. He returned to ER 12/15/2024 with worsening lethargy, weakness, confusion. This time sputum cultures revealed E. coli and Staph aureus. 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 The following portions of the patient's history were reviewed and updated as appropriate: allergies, current medications, past family history, past medical history, past social history, past surgical history and problem list. Review of Systems Objective: There were no vitals filed for this visit. Physical Exam For any new medications prescribed today, patient was educated about indications for the medication, how to take the medication and potential side effects of the medications. Ulices Clark, DO [facility] 12-18-2024 Progress note Formatting of t his note might be different from the original. Home medication returned to pt. [facility] 12-18-2024 Miscellaneous Notes Home medication returned to pt. Problem: Actual or potential alteration in health Goal: Absence of healthcare acquired conditions Outcome: Partially Met Goal: Knowledge of Interdisciplinary Plan of Care Outcome: Partially Met Goal: Knowledge of Enviroment Outcome: Partially Met Problem: Pain Goal: Reduced pain sensation Outcome: Partially Met Goal: Control of acute pain to acceptable level Outcome: Partially Met Goal: Able to cope with pain Outcome: Partially Met Goal: Able to achieve maximum level of physical functioning Outcome: Partially Met Goal: Able to achieve maximum level of psychosocial functioning Outcome: Partially Met Problem: Actual or potential alteration in health Goal: Absence of healthcare acquired conditions Outcome: Partially Met Goal: Knowledge of Interdisciplinary Plan of Care Outcome: Partially Met Goal: Knowledge of Enviroment Outcome: Partially Met Problem: Pain Goal: Reduced pain sensation Outcome: Partially Met Goal: Control of acute pain to acceptable level Outcome: Partially Met Goal: Able to cope with pain Outcome: Partially Met Goal: Able to achieve maximum level of physical functioning Outcome: Partially Met Goal: Able to achieve maximum level of psychosocial functioning Outcome: Partially Met Patient had an IV infiltrate and is currently with no access refusing another one as they are tomorrow. Provider notified and okay with situation. Patient currently has no needs at this time call light within reach. Emesis last night with enteral nutrition. Discussed with - will change back to HEN. 3 boost VHC + 2 Compleat Original 1.5 @ 105 mL/hr X 12 hours from 8p-8a. Flush with 30 mL h2o q 4 hours and before/after cyclic rate. Problem: Actual or potential alteration in health Goal: Absence of healthcare acquired conditions Outcome: Partially Met Goal: Knowledge of Interdisciplinary Plan of Care Outcome: Partially Met Goal: Knowledge of Enviroment Outcome: Partially Met Problem: Pain Goal: Reduced pain sensation Outcome: Partially Met Goal: Control of acute pain to acceptable level Outcome: Partially Met Goal: Able to cope with pain Outcome: Partially Met Goal: Able to achieve maximum level of physical functioning Outcome: Partially Met Goal: Able to achieve maximum level of psychosocial functioning Outcome: Partially Met Problem: Actual or potential alteration in health Goal: Absence of healthcare acquired conditions Outcome: Partially Met Goal: Knowledge of Interdisciplinary Plan of Care Outcome: Partially Met Goal: Knowledge of Enviroment Outcome: Partially Met Problem: Actual or potential alteration in health Goal: Absence of healthcare acquired conditions Outcome: Partially Met Goal: Knowledge of Interdisciplinary Plan of Care Outcome: Partially Met Goal: Knowledge of Enviroment Outcome: Partially Met documented in this encounter [facility] 12-18-2024 Hospital Discharge instructions Sivakumar Arias DO - 12/18/2024 2:32 PM EDT Instructions and Next Steps Hi Shen Paniagua were in the hospital and received care for treating of infections and sepis . Here s what to do next: You may need more tests after you leave the hospital. No specific testing is indicated after discharge. Your primary care physician or a specialist can help you order these. You need to continue both Linezolid antibiotic as you have some still at home and I prescribed another antibiotic Please make an appointment with your primary care physician. If you do not have one, You can call [facility] Central Scheduling at [phone] to find one. We are hospital doctors only. Unfortunately, we are not able to refill your medicines or see you after you leave the hospital. Please ask your primary care or specialist for refills. If you feel worse or your symptoms (fever or became encephalopathic ) come back, get medical help right away. Before you leave the hospital, talk with your nurse about your instructions and ask any questions you have. If you have questions later about your medicines or instructions, please call your primary care physician first. If you still have questions, my office information is attached. You have the ability to review your medical chart via [employer]. Please ask your nurse how to sign up. It was a pleasure to take care of you! Thank you, Sivakumar Arias DO [facility] Medicine Service ([facility]) [place] [address] documented in this encounter [facility] 12-18-2024 Hospital course Narrative [facility] DISCHARGE SUMMARY -- [facility] Amy Sun : 1950 Admitted: 12/15/2024 Discharge Date: 12/18/24 PCP Handoff Recommended Outpatient Testing FU with PCP in one week FU with ID in 2-4 weeks Results Pending At Discharge None Clinical Summary Amy Sun is a 74 y.o. male patient of Ulices Clark DO with history of asthma, BPH, CKD, COPD, chronic hypoxemic respiratory failure on 2 L nasal cannula, hyperlipidemia, hypertension, migraine, prediabetes, and tongue cancer status postradiation who presented to [facility] on 12/15/2024 with weakness, fever, lethargy. Severe Sepsis, POA Lactic acidemia due to sepsis Leukocytosis Aspiration pneumonia continues to be treated and monitored Unclear etiology. CXR personally reviewed, and interpreted, showed improved infiltrate from last admission, UA is negative Sputum culture during last admission grew MRSA LA on admission 3.5, improved to 1.1, WBC on admission 24 S/p cefepime and vancomycin, Blood cultures NGTD, sputum culture growing E. coli and Staph aureus pending sensitivity ID was consulted, and recommend the pt to be discharged on Cefodixime for 5days and continue linezolid ( Pt still have some pills at home) and FU as OP Elevated troponin, likely demand ischemia Troponin on presentation 26. Denies chest pain. Trend. Likely demand ischemia due to sepsis. 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 Patient was walking independently at Hypernatremia Sodium 147 on presentation. Improved to 145 Discharge Medications Discharge Medications New Medications Details cefpodoxime 200 MG tablet Commonly known as: VANTIN Take 1 (one) tablet (200 mg total) by mouth 2 (two) times a day for 5 days . Quantity: 10 tablet Unreviewed Medications Details apixaban 5 mg Tab Commonly known as: Eliquis 1 (one) tablet (5 mg total) by Per G Tube route 2 (two) times a day . Quantity: 180 tablet aspirin 81 MG EC tablet 1 (one) tablet (81 mg total) by Other route every morning Per G tube . xevybee-dzxnwavzmuokq-bjajtfun 250-250-65 mg per tablet Commonly known as: EXCEDRIN MIGRAINE 1 (one) tablet by Per G Tube route every 6 (six) hours as needed for pain . cyanocobalamin (vitamin B-12) 2,500 mcg Tab 1 (one) tablet (2,500 mcg total) by Per G Tube route nightly . doxazosin 4 MG tablet Commonly known as: CARDURA 1 (one) tablet (4 mg total) by Per G Tube route nightly . famotidine 20 MG tablet Commonly known as: PEPCID 1 (one) tablet (20 mg total) by Per G Tube route 2 (two) times a day . finasteride 5 mg tablet Commonly known as: PROSCAR 1 (one) tablet (5 mg total) by Per G Tube route nightly . fluticasone propionate 50 mcg/actuation nasal spray Commonly known as: FLONASE Instill 2 (two) sprays into each nostril daily . Quantity: 16 g guaiFENesin 600 mg 12 hr tablet Commonly known as: MUCINEX 2 (two) tablets (1,200 mg total) by Other route every 12 (twelve) hours as needed for congestion Per G tube . Lactobacillus rhamnosus GG 10 billion cell capsule Commonly known as: CULTURELLE 1 (one) capsule by Per G Tube route every morning . roflumilast 500 mcg tablet Commonly known as: DALIRESP 1 (one) tablet (500 mcg total) by Per G Tube route daily in the afternoon . sertraline 50 MG tablet Commonly known as: ZOLOFT Take 1 (one) tablet (50 mg total) by mouth daily . Quantity: 90 tablet SUMAtriptan 50 MG tablet Commonly known as: IMITREX Take 1 (one) tablet (50 mg total) by mouth every 2 (two) hours as needed for migraine Max of 200 mg in 24hrs, do not treat more than 3 times a week . Quantity: 10 tablet SYSTANE PRO PF OPHT Administer 1 drop to both eyes as needed . umeclidinium-vilanteroL 62.5-25 mcg/actuation Dsdv Inhale 1 Inhalation daily . Physician(s) Follow Up: No follow-up provider specified. Condition at Discharge: Good Disposition: Home I reviewed discharge recommendations with the patient in person. Patient instructions, including activity, were given to the patient/family at discharge. On day of discharge I saw Amy Sun and spent: > 30 minutes on discharge. Completed by: Sivakumar Arias DO on 12/18/24, 2:27 PM documented in this encounter [facility] 12-18-2024 Note HMS DISCHARGE SUMMAR Y -- [facility] Amy Sun : 1950 Admitted: 12/15/2024 Discharge Date: 12/18/24 PCP Handoff Recommended Outpatient Testing FU with PCP in one week FU with ID in 2-4 weeks Results Pending At Discharge None Clinical Summary Amy Sun is a 74 y.o. male patient of Ulices Clark DO with history of asthma, BPH, CKD, COPD, chronic hypoxemic respiratory failure on 2 L nasal cannula, hyperlipidemia, hypertension, migraine, prediabetes, and tongue cancer status postradiation who presented to [facility] on 12/15/2024 with weakness, fever, lethargy. Severe Sepsis, POA Lactic acidemia due to sepsis Leukocytosis Aspiration pneumonia continues to be treated and monitored Unclear etiology. CXR personally reviewed, and interpreted, showed improved infiltrate from last admission, UA is negative Sputum culture during last admission grew MRSA LA on admission 3.5, improved to 1.1, WBC on admission 24 S/p cefepime and vancomycin, Blood cultures NGTD, sputum culture growing E. coli and Staph aureus pending sensitivity ID was consulted, and recommend the pt to be discharged on Cefodixime for 5days and continue linezolid ( Pt still have some pills at home) and FU as OP Elevated troponin, likely demand ischemia Troponin on presentation 26. Denies chest pain. Trend. Likely demand ischemia due to sepsis. 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 Patient was walking independently at Hypernatremia Sodium 147 on presentation. Improved to 145 Discharge Medications Discharge Medications New Medications Details cefpodoxime 200 MG tablet Commonly known as: VANTIN Take 1 (one) tablet (200 mg total) by mouth 2 (two) times a day for 5 days . Quantity: 10 tablet Unreviewed Medications Details apixaban 5 mg Tab Commonly known as: Eliquis 1 (one) tablet (5 mg total) by Per G Tube route 2 (two) times a day . Quantity: 180 tablet aspirin 81 MG EC tablet 1 (one) tablet (81 mg total) by Other route every morning Per G tube . skdofdj-cwmtczpuqtera-zrnlscey 250-250-65 mg per tablet Commonly known as: EXCEDRIN MIGRAINE 1 (one) tablet by Per G Tube route every 6 (six) hours as needed for pain . cyanocobalamin (vitamin B-12) 2,500 mcg Tab 1 (one) tablet (2,500 mcg total) by Per G Tube route nightly . doxazosin 4 MG tablet Commonly known as: CARDURA 1 (one) tablet (4 mg total) by Per G Tube route nightly . famotidine 20 MG tablet Commonly known as: PEPCID 1 (one) tablet (20 mg total) by Per G Tube route 2 (two) times a day . finasteride 5 mg tablet Commonly known as: PROSCAR 1 (one) tablet (5 mg total) by Per G Tube route nightly . fluticasone propionate 50 mcg/actuation nasal spray Commonly known as: FLONASE Instill 2 (two) sprays into each nostril daily . Quantity: 16 g guaiFENesin 600 mg 12 hr tablet Commonly known as: MUCINEX 2 (two) tablets (1,200 mg total) by Other route every 12 (twelve) hours as needed for congestion Per G tube . Lactobacillus rhamnosus GG 10 billion cell capsule Commonly known as: CULTURELLE 1 (one) capsule by Per G Tube route every morning . roflumilast 500 mcg tablet Commonly known as: DALIRESP 1 (one) tablet (500 mcg total) by Per G Tube route daily in the afternoon . sertraline 50 MG tablet Commonly known as: ZOLOFT Take 1 (one) tablet (50 mg total) by mouth daily . Quantity: 90 tablet SUMAtriptan 50 MG tablet Commonly known as: IMITREX Take 1 (one) tablet (50 mg total) by mouth every 2 (two) hours as needed for migraine Max of 200 mg in 24hrs, do not treat more than 3 times a week . Quantity: 10 tablet SYSTANE PRO PF OPHT Administer 1 drop to both eyes as needed . umeclidinium-vilanteroL 62.5-25 mcg/actuation Dsdv Inhale 1 Inhalation daily . Physician(s) Follow Up: No follow-up provider specified. Condition at Discharge: Good Disposition: Home I reviewed discharge recommendations with the patient in person. Patient instructions, including activity, were given to the patient/family at discharge. On day of discharge I saw Amy Dino and spent: > 30 minutes on discharge. Completed by: Sivakumar Arias DO on 12/18/24, 2:27 PM AUTHENTICATED BY BYRON VICENTE (more content not included)... [facility] 12-18-2024 Note Patient Name: Deidra Sun Admit Date: [id number] MR #: [id number] : 1950 Physicians: Ulices Clark DO (Family); No ref. provider found (Referring) Assessment: Patient with 1. Fever, improving 2. Pneumonia, with E. coli and MRSA 3. Malignancy of the tongue, 4. Leukocytosis, improved 5. Hypotension, improved Plan. Continue patient on current therapy Patient currently on IV vancomycin Patient on IV cefepime I reviewed labs I reviewed repeat sputum culture with MRSA, and E. coli. Consider CT scan of the chest abdomen and pelvis if no improvement. Reviewed previous chest x-ray, with some improvement in the infiltrates in the mid lung field. Stool for C. difficile if diarrhea Reviewed blood cultures with no growth. Get urine for strep and Legionella antigen. I reviewed procalcitonin level 0.18 and ESR 14 and C-reactive protein 138 I reviewed previous CTA pulmonary and abdomen and pelvis from November 17, 2024 With right upper lobe and middle lobe airspace disease compatible with pneumonia, left renal abdominal aortic aneurysm. I reviewed urine analysis Continue to follow with you. Aspiration precaution recommended, patient encouraged on antiseptic mouthwash, and good sleeping hygiene, and good oral care. Follow-up with established director of veterans affairs. I discussed again with the at the bedside on management plan, including poor absorption of antibiotics while using PEG tube feeding. . I discussed with Dr. Arias and management plan. On Discharge: Continue patient on p.o. linezolid, and p.o. cefpodoxime (Patient had leftover linezolid at home, up to 4 days at home. Was encouraged to finish out the remaining pills.) Follow-up in the office in 2 weeks. Subjective: Today patient reevaluated, no new symptoms, patient states that he is improving, wants to go home as soon as possible. Patient does not want to stay in the hospital to complete IV antibiotics. Tmax of 98.5. Saturating 97% on 2 L. at the bedside. Exam: PACU Vitals 12/18/24 0957 BP: Pulse: Resp: 16 Temp: SpO2: Allergies: Budesonide, Revefenacin, and Ipratropium-albuterol Current Medications[1] PMH/PSH/SH/FH reviewed, no change : Review of Systems: All systems were reviewed no change: Medications Reviewed. Allergies: Budesonide, Revefenacin, and Ipratropium-albuterol Chart Reviewed. Exam Findings: HEENT: Atraumatic/Pupils equal & reactive Neck: Supple, no rigidity ENT: No oral candidiasis, patient with hard of hearing Chest: Lungs clear bilaterally, no wheezing, with rales CVS: Normal S1 & S2+. Abdomen: PEG tube in place, normal symmetry, Soft/non-tender. Benign, BS+ Extremities: No Deformities or Edema Skin: Intact & No Rashes, or excoriations Musculoskeletal: No joint swelling, non tender ROLLER ENGRAVER: Awake, and Ox3 Wound: None Serna Catheter: None IV Access: Yes I reviewed Medications. I reviewed Labs. XR Chest 1 View Final Result 1. Slight but noticeably improved infiltrate in the mid right lung field. 2. Slight bibasilar atelectasis. Workstation ID: [id number] Laboratory and Additional Data Reviewed: Laboratory 12/18/24 12:02 PM Microbiology 12/18/24 12:02 PM Radiology 12/18/24 12:02 PM Medications 12/18/24 12:02 PM Lab Results Component Value Date WBC 7.23 12/18/2024 HGB 12.7 (L) 12/18/2024 HCT 39.1 (L) 12/18/2024 MCV 93.8 12/18/2024 PLT 158 12/18/2024 Lab Results Component Value Date GLUCOSE 110 (H) 12/18/2024 CALCIUM 9.3 12/18/2024 NA 146 (H) 12/18/2024 K 4.2 12/18/2024 CL 107 12/18/2024 BUN 27 (H) 12/18/2024 CREATININE 0.59 (L) 12/18/2024 Problem List Items Addressed This Visit Other * (Principal) Sepsis (HCC) - Primary I have taken time to review patient's information and having discussions with appropriate care teams, I appreciate seeing your patient, will continue to follow with you, and adjust with more information. Medical Decision Making: High This note is created with the assistance of a speech-recognition program. While intending to generate a document that actually reflects the content of the visit, the document can still have some errors including those of syntax and sound a- like substitutions which may escape proofreading. In such instances, actual meaning can be extrapolated by contextual derivation. [1] Current Facility-Administered Medications: acetaminophen (TYLENOL) tablet 650 mg, 650 mg, Tube, Q4H PRN, Jesus Alberto Glass RPh,PharmD, 650 mg at 12/17/24 1120 aluminum-magnesium hydroxide-simethicone (MAALOX PLUS) 200-200-20 mg/5 mL suspension 30 mL, 30 mL, Tube, Q4H PRN, Jesus Alberto Glass RPh,PharmD apixaban (ELIQUIS) tablet 5 mg, 5 mg, Tube, BID, Larry Banks MD, 5 mg at 12/18/24 0943 artificial tears (polyethylene glycol 400) 1 % ophthalmic solution 1 drop, 1 drop, Both Eyes, PRN, Larry Banks MD cefePIMe-dextrose (MAXIPIME) 2 gram/50 mL IVPB 2,000 mg, 2, (more content not included)... [facility] 12-18-2024 History of Present illness Narrative Patient Name: Amy Sun Admit Date: [id number] MR #: [id number] : 1950 Physicians: Ulices Clark DO (Family); No ref. provider found (Referring) Assessment: Patient with 1. Fever, improving 2. Pneumonia, with E. coli and MRSA 3. Malignancy of the tongue, 4. Leukocytosis, improved 5. Hypotension, improved Plan. Continue patient on current therapy Patient currently on IV vancomycin Patient on IV cefepime I reviewed labs I reviewed repeat sputum culture with MRSA, and E. coli. Consider CT scan of the chest abdomen and pelvis if no improvement. Reviewed previous chest x-ray, with some improvement in the infiltrates in the mid lung field. Stool for C. difficile if diarrhea Reviewed blood cultures with no growth. Get urine for strep and Legionella antigen. I reviewed procalcitonin level 0.18 and ESR 14 and C-reactive protein 138 I reviewed previous CTA pulmonary and abdomen and pelvis from November 17, 2024 With right upper lobe and middle lobe airspace disease compatible with pneumonia, left renal abdominal aortic aneurysm. I reviewed urine analysis Continue to follow with you. Aspiration precaution recommended, patient encouraged on antiseptic mouthwash, and good sleeping hygiene, and good oral care. Follow-up with established director of veterans affairs. I discussed again with the at the bedside on management plan, including poor absorption of antibiotics while using PEG tube feeding. . I discussed with Dr. Arias and management plan. On Discharge: Continue patient on p.o. linezolid, and p.o. cefpodoxime (Patient had leftover linezolid at home, up to 4 days at home. Was encouraged to finish out the remaining pills.) Follow-up in the office in 2 weeks. Subjective: Today patient reevaluated, no new symptoms, patient states that he is improving, wants to go home as soon as possible. Patient does not want to stay in the hospital to complete IV antibiotics. Tmax of 98.5. Saturating 97% on 2 L. at the bedside. Exam: PACU Vitals 12/18/24 0957 BP: Pulse: Resp: 16 Temp: SpO2: Allergies: Budesonide, Revefenacin, and Ipratropium-albuterol Current Medications[1] PMH/PSH/SH/FH reviewed, no change : Review of Systems: All systems were reviewed no change: Medications Reviewed. Allergies: Budesonide, Revefenacin, and Ipratropium-albuterol Chart Reviewed. Exam Findings: HEENT: Atraumatic/Pupils equal & reactive Neck: Supple, no rigidity ENT: No oral candidiasis, patient with hard of hearing Chest: Lungs clear bilaterally, no wheezing, with rales CVS: Normal S1 & S2+. Abdomen: PEG tube in place, normal symmetry, Soft/non-tender. Benign, BS+ Extremities: No Deformities or Edema Skin: Intact & No Rashes, or excoriations Musculoskeletal: No joint swelling, non tender ROLLER ENGRAVER: Awake, and Ox3 Wound: None Serna Catheter: None IV Access: Yes I reviewed Medications. I reviewed Labs. XR Chest 1 View Final Result 1. Slight but noticeably improved infiltrate in the mid right lung field. 2. Slight bibasilar atelectasis. Workstation ID: [id number] Laboratory and Additional Data Reviewed: Laboratory 12/18/24 12:02 PM Microbiology 12/18/24 12:02 PM Radiology 12/18/24 12:02 PM Medications 12/18/24 12:02 PM Lab Results Component Value Date WBC 7.23 12/18/2024 HGB 12.7 (L) 12/18/2024 HCT 39.1 (L) 12/18/2024 MCV 93.8 12/18/2024 PLT 158 12/18/2024 Lab Results Component Value Date GLUCOSE 110 (H) 12/18/2024 CALCIUM 9.3 12/18/2024 NA 146 (H) 12/18/2024 K 4.2 12/18/2024 CL 107 12/18/2024 BUN 27 (H) 12/18/2024 CREATININE 0.59 (L) 12/18/2024 Problem List Items Addressed This Visit Other * (Principal) Sepsis (HCC) - Primary I have taken time to review patient's information and having discussions with appropriate care teams, I appreciate seeing your patient, will continue to follow with you, and adjust with more information. Medical Decision Making: High This note is created with the assistance of a speech-recognition program. While intending to generate a document that actually reflects the content of the visit, the document can still have some errors including those of syntax and sound a- like substitutions which may escape proofreading. In such instances, actual meaning can be extrapolated by contextual derivation. [1] Current Facility-Administered Medications: acetaminophen (TYLENOL) tablet 650 mg, 650 mg, Tube, Q4H PRN, Jesus Alberto Glass, Abi,PharmD, 650 mg at 12/17/24 1120 aluminum-magnesium hydroxide-simethicone (MAALOX PLUS) 200-200-20 mg/5 mL suspension 30 mL, 30 mL, Tube, Q4H PRN, Jesus Alberto Glass, [facility],PharmD apixaban (ELIQUIS) tablet 5 mg, 5 mg, Tube, BID, Larry Banks MD, 5 mg at 12/18/24 0943 artificial tears (polyethylene glycol 400) 1 % ophthalmic solution 1 drop, 1 drop, Both Eyes, PRN, Larry Banks MD cefePIMe-dextrose (MAXIPIME) 2 gram/50 mL IVPB 2,000 mg, 2,000 mg, Intravenous, Q8H, Larry Banks MD, Last Rate: 100 mL/hr at 12/17/24 1655, 2,000 mg at 12/17/24 1655 cyanocobalamin (B-12) tablet 2,500 mcg, 2,500 mcg, Tube, Nightly, Larry Banks MD [Held by provider] doxazosin (CARDURA) tablet 4 mg, 4 mg, Oral, Nightly, Sivakumar Arisa DO famotidine (PEPCID) tablet 20 mg, 20 mg, Tube, BID, Larry Banks MD, 20 mg at 12/18/24 0943 melatonin Tab 5 mg, 5 mg, Tube, Nightly PRN, Amy Frederick Jr., [facility],PharmD ondansetron (ZOFRAN-ODT) disintegrating tablet 4 mg, 4 mg, Oral, Q6H PRN OR ondansetron (ZOFRAN) injection 4 mg, 4 mg, Intravenous, Q6H PRN, Larry Banks MD Patient Own Medication: umeclidinium-vilanteroL 62.5-25 mcg/actuation DsDv 1 Inhalation, 1 Inhalation, Inhalation, Daily, Larry Banks MD, 1 Inhalation at 12/18/24 0943 roflumilast (DALIRESP) tablet 500 mcg, 500 mcg, Tube, Daily, Larry Banks MD, 500 mcg at 12/18/24 0943 sertraline (ZOLOFT) tablet 50 mg, 50 mg, Tube, Daily, Larry Banks MD, 50 mg at 12/18/24 0943 sodium chloride (OCEAN) 0.65 % nasal spray 1 spray, 1 spray, Each Nare, PRN, Larry Banks MD [COMPLETED] Insert peripheral IV, , , Once AND Saline lock IV, , , Once AND sodium chloride (PF) (NS) flush 5 mL, 5 mL, Intravenous, PRN AND sodium chloride 0.9% (NS), 0-150 mL/hr, Intravenous, PRN, Ifeanyi Scott DO [COMPLETED] Insert peripheral IV, , , Once AND Saline lock IV, , , Once AND sodium chloride (PF) (NS) flush 5 mL, 5 mL, Intravenous, PRN AND sodium chloride 0.9% (NS), 0-150 mL/hr, Intravenous, PRN, Ifeanyi Scott DO, Last Rate: 100 mL/hr at 12/17/24 1654, 100 mL/hr at 12/17/24 1654 SUMAtriptan (IMITREX) tablet 50 mg, 50 mg, Tube, Q2H PRN, Amy Frederick Jr., [facility],PharmD traZODone (DESYREL) tablet 50 mg, 50 mg, Tube, Nightly PRN, Amy Frederick Jr., RPh,PharmD vancomycin (VANCOCIN) 1250 mg in sodium chloride 0.9% (NS) 250 mL IVPB, 1,250 mg, Intravenous, Q12H, Jesus Alberto Glass RPh,PharmD, Last Rate: 200 mL/hr at 12/17/24 1122, 1,250 mg at 12/17/24 1122 [facility] PROGRESS NOTE Patient name: Amy Sun Date of : 1950 Assessment and plan Amy Sun is a 74 y.o. male patient of Ulices Clark DO with history of asthma, BPH, CKD, COPD, chronic hypoxemic respiratory failure on 2 L nasal cannula, hyperlipidemia, hypertension, migraine, prediabetes, and tongue cancer status postradiation who presented to [facility] on 12/15/2024 with weakness, fever, lethargy. Severe Sepsis, POA Lactic acidemia due to sepsis Leukocytosis Aspiration pneumonia continues to be treated and monitored Unclear etiology. CXR personally reviewed, and interpreted, showed improved infiltrate from last admission, UA is negative Sputum culture during last admission grew MRSA LA on admission 3.5, improved to 1.1, WBC on admission 24 Continue empirically cefepime and vancomycin, check MRSA, de-escalate as soon as possible Blood cultures NGTD, sputum culture growing E. coli and Staph aureus pending sensitivity ID was consulted, appreciate recommendation Elevated troponin, likely demand ischemia Troponin on presentation 26. Denies chest pain. Trend. Likely demand ischemia due to sepsis. EKG personally reviewed did not show any ischemic change COPD Asthma Chronic hypoxemic respiratory failure, baseline 2 L Continue umeclidinium-vilanterol and Roflumilast [LAMA/LABA] DuoNeb as needed Continue ox support, baseline 2 L Pulmonary embolism Continue Eliquis, no need for aspirin Hypertension Hyperlipidemia BPH Hold doxazosin and finasteride due to soft blood pressure. Resume as able. 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 PT and OT evaluation Consult care management for discharge needs Hypernatremia Sodium 147 on presentation. Improved to 145 Discharge planning Medically ready for discharge: no Patient and/or family has been notified they are expected to be medically stable for discharge on the following date: 12/18/2024 Patient requires continued hospitalization due to: Workup for sepsis Discussed with the patient and/or family that the following is a potential discharge location, understanding that the final plan will depend on the patient's progress and shared decision-making: Home The following resources have been ordered to assist with discharge barriers: care management, PT, OT Quality measures DVT prophylaxis: eliquis Serna catheter: absent Code status Full Code Subjective Patient seen examined the morning at bedside. No acute overnight events. Sitting in his chair comfortably NAD, on 2 L NC chronic. Denies any new complaint. He was able to walk around with the nurse without complaints. Was asking to go home. Discussed with Dr. Mcduffie, who recommends the patient to stay till Friday as he concerning about absorption of the p.o. medications through the PEG tube. Discussed treatment plan with the patient and his at bedside and was able to answer all questions at bedside Objective BP 116/70 Pulse (!) 55 Temp 97.6 F (36.4 C) (Oral) Resp (!) 20 Ht 6' 1 Wt 77.2 kg (170 lb 3.1 oz) SpO2 96% BMI 22.45 kg/m General appearance: alert; chronically ill appearing; in no acute distress HEENT: Head- normocephalic; Eyes- EOMI, sclera anicteric; Throat- mucous membranes moist Cardiovascular: regular rate and rhythm; normal S1, S2; no murmurs, rubs, clicks or gallops; peripheral edema absent Respiratory: Mild rhonchi at the base of the lungs on nasal cannula Abdomen: soft, non-tender, non-distended Neurological: oriented x 3; normal speech; no focal findings or movement disorder noted Musculoskeletal: no significant deformity or tenderness to palpation Skin: normal coloration Psych: normal mood and affect Date: 12/17/2024 Time: 11:29 AM Patient Name: Amy Sun Date of : 1950 Discharge Disposition Update: Patient reviewed with Dr. Arias. No new needs identified. Patient worked with therapy and no therapy is needed at discharge. Plan remains in place for patient to return home with spouse. [facility] tube feed [facility] [place] order [facility]. Plan A: Home Transportation: Discharge Disposition: Regulatory Documentation: Patient Name: Amy Sun Admit Date: [id number] MR #: [id number] : 1950 Physicians: Ulices Clark, (Family); No ref. provider found (Referring) Assessment: Patient with 1. Fever, improving 2. History of pneumonia, 3. Malignancy of the tongue, 4. Leukocytosis, improved 5. Hypotension Plan. Continue patient on current therapy Patient currently on IV vancomycin Patient on IV cefepime I reviewed labs I reviewed repeat sputum culture with no growth Consider CT scan of the chest abdomen and pelvis if no improvement. Reviewed previous chest x-ray, with some improvement in the infiltrates in the mid lung field. Stool for C. difficile if diarrhea Reviewed blood cultures with no growth. Get urine for strep and Legionella antigen. I reviewed procalcitonin level 0.18 and ESR 14 and C-reactive protein 138 I reviewed previous CTA pulmonary and abdomen and pelvis from November 17, 2024 With right upper lobe and middle lobe airspace disease compatible with pneumonia, left renal abdominal aortic aneurysm. I reviewed urine analysis Continue to follow with you. I discussed again with the at the bedside on management plan. On Discharge: To be determined, workup in progress. Subjective: Today again patient evaluated, lying quietly on the bed mattress. at the bedside. Tmax of 98.3. Saturating 97% on 2 L of nasal cannula.Patient remains on gastrostomy tube. No tenderness. Did not tolerate current tube feeding, has brought in some feeding tube nutrition. Patient states that he is doing much better than yesterday. Exam: PACU Vitals 12/17/24 0907 BP: Pulse: Resp: (!) 22 Temp: SpO2: Allergies: Budesonide, Revefenacin, and Ipratropium-albuterol Current Medications[1] PMH/PSH/SH/FH reviewed, no change : Review of Systems: All systems were reviewed no change: Medications Reviewed. Allergies: Budesonide, Revefenacin, and Ipratropium-albuterol Chart Reviewed. Exam Findings: HEENT: Atraumatic/Pupils equal & reactive Neck: Supple, no rigidity ENT: No oral candidiasis Chest: Lungs clear bilaterally, no wheezing, with rales CVS: Normal S1 & S2+. Abdomen: PEG tube in place, normal symmetry, Soft/non-tender. Benign, BS+ Extremities: No Deformities or Edema Skin: Intact & No Rashes, or excoriations Musculoskeletal: No joint swelling, non tender ROLLER ENGRAVER: Awake, and Ox3 Wound: None Serna Catheter: None IV Access: Yes I reviewed Medications. I reviewed Labs. XR Chest 1 View Final Result 1. Slight but noticeably improved infiltrate in the mid right lung field. 2. Slight bibasilar atelectasis. Workstation ID: [id number] Laboratory and Additional Data Reviewed: Laboratory 12/17/24 10:54 AM Microbiology 12/17/24 10:54 AM Radiology 12/17/24 10:54 AM Medications 12/17/24 10:54 AM Lab Results Component Value Date WBC 9.89 12/17/2024 HGB 11.9 (L) 12/17/2024 HCT 38.2 (L) 12/17/2024 MCV 96.0 12/17/2024 PLT 143 (L) 12/17/2024 Lab Results Component Value Date GLUCOSE 110 (H) 12/17/2024 CALCIUM 8.9 12/17/2024 NA 143 12/17/2024 K 4.0 12/17/2024 CL 108 12/17/2024 BUN 21 12/17/2024 CREATININE 0.62 (L) 12/17/2024 Problem List Items Addressed This Visit Other * (Principal) Sepsis (HCC) - Primary I have taken time to review patient's information and having discussions with appropriate care teams, I appreciate seeing your patient, will continue to follow with you, and adjust with more information. Medical Decision Making: High This note is created with the assistance of a speech-recognition program. While intending to generate a document that actually reflects the content of the visit, the document can still have some errors including those of syntax and sound a- like substitutions which may escape proofreading. In such instances, actual meaning can be extrapolated by contextual derivation. [1] Current Facility-Administered Medications: acetaminophen (TYLENOL) tablet 650 mg, 650 mg, Tube, Q4H PRN, Jesus Alberto Glass RPh,PharmD aluminum-magnesium hydroxide-simethicone (MAALOX PLUS) 200-200-20 mg/5 mL suspension 30 mL, 30 mL, Tube, Q4H PRN, Jesus Alberto Glass RPh,PharmD apixaban (ELIQUIS) tablet 5 mg, 5 mg, Tube, BID, Larry Banks MD, 5 mg at 12/17/24 0845 artificial tears (polyethylene glycol 400) 1 % ophthalmic solution 1 drop, 1 drop, Both Eyes, PRN, Larry Banks MD cefePIMe-dextrose (MAXIPIME) 2 gram/50 mL IVPB 2,000 mg, 2,000 mg, Intravenous, Q8H, Larry Banks MD, Last Rate: 100 mL/hr at 12/17/24 0859, 2,000 mg at 12/17/24 0859 cyanocobalamin (B-12) tablet 2,500 mcg, 2,500 mcg, Tube, Nightly, Larry Banks MD [Held by provider] doxazosin (CARDURA) tablet 4 mg, 4 mg, Oral, Nightly, Sivakumar Arias DO famotidine (PEPCID) tablet 20 mg, 20 mg, Tube, BID, Larry Banks MD, 20 mg at 12/17/24 0846 melatonin Tab 5 mg, 5 mg, Tube, Nightly PRN, Amy Frederick Jr., [facility],PharmD ondansetron (ZOFRAN-ODT) disintegrating tablet 4 mg, 4 mg, Oral, Q6H PRN OR ondansetron (ZOFRAN) injection 4 mg, 4 mg, Intravenous, Q6H PRN, Larry Banks MD Patient Own Medication: umeclidinium-vilanteroL 62.5-25 mcg/actuation DsDv 1 Inhalation, 1 Inhalation, Inhalation, Daily, Larry Banks MD, 1 Inhalation at 12/17/24 0846 potassium, sodium phosphates (PHOS-NAK) 280-160-250 mg packet 1 packet, 1 packet, Oral, With meals & nightly, Sivakumar Arias DO roflumilast (DALIRESP) tablet 500 mcg, 500 mcg, Tube, Daily, Larry Banks MD, 500 mcg at 12/17/24 0845 sertraline (ZOLOFT) tablet 50 mg, 50 mg, Tube, Daily, Larry Banks MD, 50 mg at 12/17/24 0846 sodium chloride (OCEAN) 0.65 % nasal spray 1 spray, 1 spray, Each Nare, PRN, Larry Banks MD [COMPLETED] Insert peripheral IV, , , Once AND Saline lock IV, , , Once AND sodium chloride (PF) (NS) flush 5 mL, 5 mL, Intravenous, PRN AND sodium chloride 0.9% (NS), 0-150 mL/hr, Intravenous, PRN, Ifeanyi Scott DO [COMPLETED] Insert peripheral IV, , , Once AND Saline lock IV, , , Once AND sodium chloride (PF) (NS) flush 5 mL, 5 mL, Intravenous, PRN AND sodium chloride 0.9% (NS), 0-150 mL/hr, Intravenous, PRN, Ifeanyi Scott DO, Last Rate: 100 mL/hr at 12/17/24 0858, 100 mL/hr at 12/17/24 0858 SUMAtriptan (IMITREX) tablet 50 mg, 50 mg, Tube, Q2H PRN, Amy Frederick Jr., [facility],PharmD traZODone (DESYREL) tablet 50 mg, 50 mg, Tube, Nightly PRN, Amy Frederick Jr., BOB,PharmD vancomycin (VANCOCIN) 1250 mg in sodium chloride 0.9% (NS) 250 mL IVPB, 1,250 mg, Intravenous, Q12H, Jesus Alberto Glass RPh,PharmD [facility] PROGRESS NOTE Patient name: Amy Sun Date of : 1950 Assessment and plan Amy Sun is a 74 y.o. male patient of Ulices Clark DO with history of asthma, BPH, CKD, COPD, chronic hypoxemic respiratory failure on 2 L nasal cannula, hyperlipidemia, hypertension, migraine, prediabetes, and tongue cancer status postradiation who presented to [facility] on 12/15/2024 with weakness, fever, lethargy. Severe Sepsis, POA Lactic acidemia due to sepsis Leukocytosis Aspiration pneumonia continues to be treated and monitored Unclear etiology. CXR personally reviewed, and interpreted, showed improved infiltrate from last admission, UA is negative Sputum culture during last admission grew MRSA LA on admission 3.5, improved to 1.1, WBC on admission 24 Continue empirically cefepime and vancomycin, check MRSA, de-escalate as soon as possible Blood cultures NGTD, sputum culture NGTD ID was consulted, appreciate recommendation Elevated troponin, likely demand ischemia Troponin on presentation 26. Denies chest pain. Trend. Likely demand ischemia due to sepsis. EKG personally reviewed did not show any ischemic change COPD Asthma Chronic hypoxemic respiratory failure, baseline 2 L Continue umeclidinium-vilanterol and Roflumilast [LAMA/LABA] DuoNeb as needed Continue ox support, baseline 2 L Pulmonary embolism Continue Eliquis, no need for aspirin Hypertension Hyperlipidemia BPH Hold doxazosin and finasteride due to soft blood pressure. Resume as able. 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 PT and OT evaluation Consult care management for discharge needs Hypernatremia Sodium 147 on presentation. Improved to 145 Discharge planning Medically ready for discharge: no Patient and/or family has been notified they are expected to be medically stable for discharge on the following date: 12/18/2024 Patient requires continued hospitalization due to: Workup for sepsis Discussed with the patient and/or family that the following is a potential discharge location, understanding that the final plan will depend on the patient's progress and shared decision-making: Home The following resources have been ordered to assist with discharge barriers: care management, PT, OT Quality measures DVT prophylaxis: eliquis Serna catheter: absent Code status Full Code Subjective Patient seen and examined today morning at bedside. No acute overnight events. Still lying in bed comfortably NAD on 2 L. Still complaining of cough. No fever overnight. Discussed with the patient at bedside the results of the blood cultures and the sputum cultures. Encourage the patient to get out of bed and work with physical therapy today morning. I was able to answer all questions at bedside Objective BP 103/60 Pulse (!) 57 Temp 97.7 F (36.5 C) (Oral) Resp (!) 22 Ht 6' 1 Wt 77.2 kg (170 lb 3.1 oz) SpO2 94% BMI 22.45 kg/m General appearance: alert; chronically ill appearing; in no acute distress HEENT: Head- normocephalic; Eyes- EOMI, sclera anicteric; Throat- mucous membranes moist Cardiovascular: regular rate and rhythm; normal S1, S2; no murmurs, rubs, clicks or gallops; peripheral edema absent Respiratory: Mild rhonchi at the base of the lungs on nasal cannula Abdomen: soft, non-tender, non-distended Neurological: oriented x 3; normal speech; no focal findings or movement disorder noted Musculoskeletal: no significant deformity or tenderness to palpation Skin: normal coloration Psych: normal mood and affect Pharmacy to Dose Antimicrobials Assessment / Plan: Amy Sun is a 74 y.o. male initiated on vancomycin for sepsis. Vancomycin goal AUC is 400-600 mcg h/mL. Current regimen will produce a predicted AUC of 458 mcg h/mL with trough of 11.8 mcg/mL. Pharmacy will continue to follow and make adjustments as needed. Please use [employer] to call pharmacy or secure chat the assigned pharmacist with questions. Dosing for this admission: Date Dose and interval before level (or initial dose) Level Dose and interval after level Notes / Follow up level 12/15 2000 mg x 1 then 1500 mg q 24 h -- -- Random 12/18 12/16 -- 1000 mg q12h Random 12/18 AM 12/17 1250 mg q12h Other active antibiotics include: Cefepime Objective: Lab Results Component Value Date CREATININE 0.62 (L) 12/17/2024 CREATININE 0.85 12/16/2024 CREATININE 1.03 12/15/2024 CREATININE 0.68 (L) 11/22/2024 CREATININE 0.58 (L) 11/21/2024 Lab Results Component Value Date WBC 9.89 12/17/2024 WBC 20.37 (H) 12/16/2024 WBC 23.95 (H) 12/15/2024 WBC 5.55 11/22/2024 WBC 6.52 11/21/2024 Ht Readings from Last 1 Encounters: 12/16/24 6' 1 (185.4 cm) Wt Readings from Last 1 Encounters: 12/16/24 77.2 kg (170 lb 3.1 oz) [place] body weight: 79.9 kg (176 lb 2.4 oz) Patient Tmax (last 24 hours): 98.6 F Micro: 12/15 blood: NGTD 12/15 MRSA: negative 12/15 SARS-CoV-2 (-) / Flu (-) 12/16 urine: negative 12/16 procal 0.18 12/16 sputum: few mixed jillian Pharmacist: Jesus Alberto Glass RPh,PharmD Contact: Shaheen Pharmacy to Dose Antimicrobials Assessment / Plan: Amy Sun is a 74 y.o. male initiated on vancomycin for sepsis. Vancomycin goal AUC is 400-600 mcg h/mL. Current regimen will produce a predicted AUC of 528 mcg h/mL with trough of 15 mcg/mL. Pharmacy will continue to follow and make adjustments as needed. Please use [employer] to call pharmacy or secure chat the assigned pharmacist with questions. Dosing for this admission: Date Dose and interval before level (or initial dose) Level Dose and interval after level Notes / Follow up level 12/15 2000 mg x 1 then 1500 mg q 24 h -- -- Random 12/18 12/15 -- 1000 mg q12h Random 12/18 AM Other active antibiotics include: Cefepime Objective: Lab Results Component Value Date CREATININE 0.85 12/16/2024 CREATININE 1.03 12/15/2024 CREATININE 0.68 (L) 11/22/2024 CREATININE 0.58 (L) 11/21/2024 CREATININE 0.70 (L) 11/20/2024 Lab Results Component Value Date WBC 20.37 (H) 12/16/2024 WBC 23.95 (H) 12/15/2024 WBC 5.55 11/22/2024 WBC 6.52 11/21/2024 WBC 11.72 (H) 11/20/2024 Ht Readings from Last 1 Encounters: 12/16/24 6' 1 (185.4 cm) Wt Readings from Last 1 Encounters: 12/16/24 77.2 kg (170 lb 3.1 oz) [place] body weight: 79.9 kg (176 lb 2.4 oz) Patient Tmax (last 24 hours): 98.6 F Micro: 12/15 blood: NGTD 12/15 MRSA: negative 12/15 SARS-CoV-2 (-) / Flu (-) 12/16 urine: pending Pharmacist: Jesus Alberto Glass RPh,PharmD Contact: Shaheen [facility] PROGRESS NOTE Patient name: Amy Sun Date of : 1950 Assessment and plan Amy Sun is a 74 [facility]. [facility] with history of asthma, BPH, CKD, COPD, chronic hypoxemic respiratory failure on 2 L nasal cannula, hyperlipidemia, hypertension, migraine, prediabetes, and tongue cancer status postradiation who presented to [facility] on 12/15/2024 with weakness, fever, lethargy. Severe Sepsis, POA Lactic acidemia due to sepsis Leukocytosis Unclear etiology. CXR personally reviewed, and interpreted, showed improved infiltrate from last admission, UA is negative Sputum culture during last admission grew MRSA LA on admission 3.5, improved to 1.1, WBC on admission 24 Continue empirically cefepime and vancomycin, check MRSA, de-escalate as soon as possible Blood cultures NGTD, sputum culture NGTD ID was consulted Elevated troponin, likely demand ischemia Troponin on presentation 26. Denies chest pain. Trend. Likely demand ischemia due to sepsis. EKG personally reviewed did not show any ischemic change COPD Asthma Chronic hypoxemic respiratory failure, baseline 2 L Continue umeclidinium-vilanterol and Roflumilast [LAMA/LABA] DuoNeb as needed Continue ox support, baseline 2 L Pulmonary embolism Continue Eliquis, no need for aspirin Hypertension Hyperlipidemia BPH Hold doxazosin and finasteride due to soft blood pressure. Resume as able. 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 PT and OT evaluation Consult care management for discharge needs Hypernatremia Sodium 147 on presentation. Improved to 145 Discharge planning Medically ready for discharge: no Patient and/or family has been notified they are expected to be medically stable for discharge on the following date: 12/18/2024 Patient requires continued hospitalization due to: Workup for sepsis Discussed with the patient and/or family that the following is a potential discharge location, understanding that the final plan will depend on the patient's progress and shared decision-making: Home The following resources have been ordered to assist with discharge barriers: care management, PT, OT Quality measures DVT prophylaxis: eliquis Serna catheter: absent Code status Full Code Subjective Patient was seen and examined today morning at bedside. No acute overnight events. He is on 2 L chronic NC. At bedside his mentions that the patient was more lethargic and had a fever before coming to the hospital. Patient today is AO x 3, febrile, complaining of cough. Stated much improvement since he came. Discussed with the patient at bedside treatment plan and his and was able to answer all of their questions. Objective BP 98/60 Pulse 60 Temp 97.7 F (36.5 C) (Oral) Resp (!) 19 Ht 6' 1 Wt 77.2 kg (170 lb 3.1 oz) SpO2 96% BMI 22.45 kg/m General appearance: alert; chronically ill appearing; in no acute distress HEENT: Head- normocephalic; Eyes- EOMI, sclera anicteric; Throat- mucous membranes moist Cardiovascular: regular rate and rhythm; normal S1, S2; no murmurs, rubs, clicks or gallops; peripheral edema absent Respiratory: Mild rhonchi at the base of the lungs on nasal cannula Abdomen: soft, non-tender, non-distended Neurological: oriented x 3; normal speech; no focal findings or movement disorder noted Musculoskeletal: no significant deformity or tenderness to palpation Skin: normal coloration Psych: normal mood and affect Pharmacy to Dose Antimicrobials Assessment / Plan: Amy Sun is a 74 y.o. male initiated on vancomycin for sepsis. Vancomycin goal AUC is 400-600 mcg h/mL. Current regimen will produce a predicted AUC of 482 mcg h/mL with trough of 11.2 mcg/mL. Pharmacy will continue to follow and make adjustments as needed. Please use [employer] to call pharmacy or secure chat the assigned pharmacist with questions. Dosing for this admission: Date Dose and interval before level (or initial dose) Level Dose and interval after level Notes / Follow up level 12/15 2000 mg x 1 then 1500 mg q 24 h -- -- Random 12/18 Other active antibiotics include: Cefepime Objective: Lab Results Component Value Date CREATININE 1.03 12/15/2024 CREATININE 0.68 (L) 11/22/2024 CREATININE 0.58 (L) 11/21/2024 CREATININE 0.70 (L) 11/20/2024 CREATININE 0.71 (L) 11/19/2024 Lab Results Component Value Date WBC 23.95 (H) 12/15/2024 WBC 5.55 11/22/2024 WBC 6.52 11/21/2024 WBC 11.72 (H) 11/20/2024 WBC 17.64 (H) 11/19/2024 Ht Readings from Last 1 Encounters: 12/16/24 6' 1 (185.4 cm) Wt Readings from Last 1 Encounters: 12/16/24 77.2 kg (170 lb 3.1 oz) [place] body weight: 79.9 kg (176 lb 2.4 oz) Patient Tmax (last 24 hours): 98.2 F Micro: Pending Pharmacist: Amy Frederick Jr, RP,PharmD Contact: Shaheen documented in this encounter [facility] 12-18-2024 Plan of care note Problem: Actual or potential alteration in health Goal: Absence of healthcare acquired conditions Outcome: Partially Met Goal: Knowledge of Interdisciplinary Plan of Care Outcome: Partially Met Goal: Knowledge of Enviroment Outcome: Partially Met Problem: Pain Goal: Reduced pain sensation Outcome: Partially Met Goal: Control of acute pain to acceptable level Outcome: Partially Met Goal: Able to cope with pain Outcome: Partially Met Goal: Able to achieve maximum level of physical functioning Outcome: Partially Met Goal: Able to achieve maximum level of psychosocial functioning Outcome: Partially Met [facility] 12-18-2024 Note HMS PROGRESS NOTE Patient name: Amy Sun Date of : 1950 Assessment and plan Amy Sun is a 74 y.o. male patient of [facility] Clark with history of asthma, BPH, CKD, COPD, chronic hypoxemic respiratory failure on 2 L nasal cannula, hyperlipidemia, hypertension, migraine, prediabetes, and tongue cancer status postradiation who presented to [facility] on 12/15/2024 with weakness, fever, lethargy. Severe Sepsis, POA Lactic acidemia due to sepsis Leukocytosis Aspiration pneumonia continues to be treated and monitored Unclear etiology. CXR personally reviewed, and interpreted, showed improved infiltrate from last admission, UA is negative Sputum culture during last admission grew MRSA LA on admission 3.5, improved to 1.1, WBC on admission 24 Continue empirically cefepime and vancomycin, check MRSA, de-escalate as soon as possible Blood cultures NGTD, sputum culture growing E. coli and Staph aureus pending sensitivity ID was consulted, appreciate recommendation Elevated troponin, likely demand ischemia Troponin on presentation 26. Denies chest pain. Trend. Likely demand ischemia due to sepsis. EKG personally reviewed did not show any ischemic change COPD Asthma Chronic hypoxemic respiratory failure, baseline 2 L Continue umeclidinium-vilanterol and Roflumilast [LAMA/LABA] DuoNeb as needed Continue ox support, baseline 2 L Pulmonary embolism Continue Eliquis, no need for aspirin Hypertension Hyperlipidemia BPH Hold doxazosin and finasteride due to soft blood pressure. Resume as able. 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 PT and OT evaluation Consult care management for discharge needs Hypernatremia Sodium 147 on presentation. Improved to 145 Discharge planning Medically ready for discharge: no Patient and/or family has been notified they are expected to be medically stable for discharge on the following date: 12/18/2024 Patient requires continued hospitalization due to: Workup for sepsis Discussed with the patient and/or family that the following is a potential discharge location, understanding that the final plan will depend on the patient's progress and shared decision-making: Home The following resources have been ordered to assist with discharge barriers: care management, PT, OT Quality measures DVT prophylaxis: eliquis Serna catheter: absent Code status Full Code Subjective Patient seen examined the morning at bedside. No acute overnight events. Sitting in his chair comfortably NAD, on 2 L NC chronic. Denies any new complaint. He was able to walk around with the nurse without complaints. Was asking to go home. Discussed with Dr. Mcduffie, who recommends the patient to stay till Friday as he concerning about absorption of the p.o. medications through the PEG tube. Discussed treatment plan with the patient and his at bedside and was able to answer all questions at bedside Objective BP 116/70 Pulse (!) 55 Temp 97.6 degrees F (36.4 degrees C) (Oral) Resp (!) 20 Ht 6' 1 Wt 77.2 kg (170 lb 3.1 oz) SpO2 96% BMI 22.45 kg/m General appearance: alert; chronically ill appearing; in no acute distress HEENT: Head- normocephalic; Eyes- EOMI, sclera anicteric; Throat- mucous membranes moist Cardiovascular: regular rate and rhythm; normal S1, S2; no murmurs, rubs, clicks or gallops; peripheral edema absent Respiratory: Mild rhonchi at the base of the lungs on nasal cannula Abdomen: soft, non-tender, non-distended Neurological: oriented x 3; normal speech; no focal findings or movement disorder noted Musculoskeletal: no significant deformity or tenderness to palpation Skin: normal coloration Psych: normal mood and affect AUTHENTICATED BY SIVAKUMAR ARIAS, ON 12/18/2024 12:41:08 [facility] 12-18-2024 Plan of care note Problem: Actual or potential alteration in health Goal: Absence of healthcare acquired conditions Outcome: Partially Met Goal: Knowledge of Interdisciplinary Plan of Care Outcome: Partially Met Goal: Knowledge of Enviroment Outcome: Partially Met Problem: Pain Goal: Reduced pain sensation Outcome: Partially Met Goal: Control of acute pain to acceptable level Outcome: Partially Met Goal: Able to cope with pain Outcome: Partially Met Goal: Able to achieve maximum level of physical functioning Outcome: Partially Met Goal: Able to achieve maximum level of psychosocial functioning Outcome: Partially Met [facility] 12-17-2024 Progress note Formatting of t his note might be different from the original. Patient had an IV infiltrate and is currently with no access refusing another one as they are tomorrow. Provider notified and okay with situation. Patient currently has no needs at this time call light within reach. [facility] 12-17-2024 Progress note Formatting of t his note might be different from the original. Emesis last night with enteral nutrition. Discussed with - will change back to HEN. 3 boost VHC + 2 Compleat Original 1.5 @ 105 mL/hr X 12 hours from 8p-8a. Flush with 30 mL h2o q 4 hours and before/after cyclic rate. [facility] 12-17-2024 Note Patient Name: Deidra Sun Admit Date: [id number] MR #: [id number] : 1950 Physicians: Ulices Clark DO (Family); No ref. provider found (Referring) Assessment: Patient with 1. Fever, improving 2. History of pneumonia, 3. Malignancy of the tongue, 4. Leukocytosis, improved 5. Hypotension Plan. Continue patient on current therapy Patient currently on IV vancomycin Patient on IV cefepime I reviewed labs I reviewed repeat sputum culture with no growth Consider CT scan of the chest abdomen and pelvis if no improvement. Reviewed previous chest x-ray, with some improvement in the infiltrates in the mid lung field. Stool for C. difficile if diarrhea Reviewed blood cultures with no growth. Get urine for strep and Legionella antigen. I reviewed procalcitonin level 0.18 and ESR 14 and C-reactive protein 138 I reviewed previous CTA pulmonary and abdomen and pelvis from November 17, 2024 With right upper lobe and middle lobe airspace disease compatible with pneumonia, left renal abdominal aortic aneurysm. I reviewed urine analysis Continue to follow with you. I discussed again with the at the bedside on management plan. On Discharge: To be determined, workup in progress. Subjective: Today again patient evaluated, lying quietly on the bed mattress. at the bedside. Tmax of 98.3. Saturating 97% on 2 L of nasal cannula.Patient remains on gastrostomy tube. No tenderness. Did not tolerate current tube feeding, has brought in some feeding tube nutrition. Patient states that he is doing much better than yesterday. Exam: PACU Vitals 12/17/24 0907 BP: Pulse: Resp: (!) 22 Temp: SpO2: Allergies: Budesonide, Revefenacin, and Ipratropium-albuterol Current Medications[1] PMH/PSH/SH/FH reviewed, no change : Review of Systems: All systems were reviewed no change: Medications Reviewed. Allergies: Budesonide, Revefenacin, and Ipratropium-albuterol Chart Reviewed. Exam Findings: HEENT: Atraumatic/Pupils equal & reactive Neck: Supple, no rigidity ENT: No oral candidiasis Chest: Lungs clear bilaterally, no wheezing, with rales CVS: Normal S1 & S2+. Abdomen: PEG tube in place, normal symmetry, Soft/non-tender. Benign, BS+ Extremities: No Deformities or Edema Skin: Intact & No Rashes, or excoriations Musculoskeletal: No joint swelling, non tender ROLLER ENGRAVER: Awake, and Ox3 Wound: None Serna Catheter: None IV Access: Yes I reviewed Medications. I reviewed Labs. XR Chest 1 View Final Result 1. Slight but noticeably improved infiltrate in the mid right lung field. 2. Slight bibasilar atelectasis. Workstation ID: [id number] Laboratory and Additional Data Reviewed: Laboratory 12/17/24 10:54 AM Microbiology 12/17/24 10:54 AM Radiology 12/17/24 10:54 AM Medications 12/17/24 10:54 AM Lab Results Component Value Date WBC 9.89 12/17/2024 HGB 11.9 (L) 12/17/2024 HCT 38.2 (L) 12/17/2024 MCV 96.0 12/17/2024 PLT 143 (L) 12/17/2024 Lab Results Component Value Date GLUCOSE 110 (H) 12/17/2024 CALCIUM 8.9 12/17/2024 NA 143 12/17/2024 K 4.0 12/17/2024 CL 108 12/17/2024 BUN 21 12/17/2024 CREATININE 0.62 (L) 12/17/2024 Problem List Items Addressed This Visit Other * (Principal) Sepsis (HCC) - Primary I have taken time to review patient's information and having discussions with appropriate care teams, I appreciate seeing your patient, will continue to follow with you, and adjust with more information. Medical Decision Making: High This note is created with the assistance of a speech-recognition program. While intending to generate a document that actually reflects the content of the visit, the document can still have some errors including those of syntax and sound a- like substitutions which may escape proofreading. In such instances, actual meaning can be extrapolated by contextual derivation. [1] Current Facility-Administered Medications: acetaminophen (TYLENOL) tablet 650 mg, 650 mg, Tube, Q4H PRN, Jesus Alberto Glass RPh,PharmD aluminum-magnesium hydroxide-simethicone (MAALOX PLUS) 200-200-20 mg/5 mL suspension 30 mL, 30 mL, Tube, Q4H PRN, Jesus Alberto Glass RPh,PharmD apixaban (ELIQUIS) tablet 5 mg, 5 mg, Tube, BID, Larry Banks MD, 5 mg at 12/17/24 0845 artificial tears (polyethylene glycol 400) 1 % ophthalmic solution 1 drop, 1 drop, Both Eyes, PRN, Larry Banks MD cefePIMe-dextrose (MAXIPIME) 2 gram/50 mL IVPB 2,000 mg, 2,000 mg, Intravenous, Q8H, Larry Banks MD, Last Rate: 100 mL/hr at 12/17/24 0859, 2,000 mg at 12/17/24 0859 cyanocobalamin (B-12) tablet 2,500 mcg, 2,500 mcg, Tube, Nightly, Larry Banks MD [Held by provider] doxazosin (CARDURA) tablet 4 mg, 4 mg, Oral, Nightly, Sivakumar Arias DO famotidine (PEPCID) tablet 20 mg, 20 mg, Tube, BID, Larry Banks MD, 20 mg at 12/17/24 0846 melatonin Tab 5 mg, 5 mg, Tube, Nightly PRN, Deidra Frederick (more content not included)... [facility] 12-17-2024 Note HMS PROGRESS NOTE Patient name: Amy Sun Date of : 1950 Assessment and plan Amy Sun is a 74 y.o. male patient of Ulices Clark DO with history of asthma, BPH, CKD, COPD, chronic hypoxemic respiratory failure on 2 L nasal cannula, hyperlipidemia, hypertension, migraine, prediabetes, and tongue cancer status postradiation who presented to [facility] on 12/15/2024 with weakness, fever, lethargy. Severe Sepsis, POA Lactic acidemia due to sepsis Leukocytosis Aspiration pneumonia continues to be treated and monitored Unclear etiology. CXR personally reviewed, and interpreted, showed improved infiltrate from last admission, UA is negative Sputum culture during last admission grew MRSA LA on admission 3.5, improved to 1.1, WBC on admission 24 Continue empirically cefepime and vancomycin, check MRSA, de-escalate as soon as possible Blood cultures NGTD, sputum culture NGTD ID was consulted, appreciate recommendation Elevated troponin, likely demand ischemia Troponin on presentation 26. Denies chest pain. Trend. Likely demand ischemia due to sepsis. EKG personally reviewed did not show any ischemic change COPD Asthma Chronic hypoxemic respiratory failure, baseline 2 L Continue umeclidinium-vilanterol and Roflumilast [LAMA/LABA] DuoNeb as needed Continue ox support, baseline 2 L Pulmonary embolism Continue Eliquis, no need for aspirin Hypertension Hyperlipidemia BPH Hold doxazosin and finasteride due to soft blood pressure. Resume as able. 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 PT and OT evaluation Consult care management for discharge needs Hypernatremia Sodium 147 on presentation. Improved to 145 Discharge planning Medically ready for discharge: no Patient and/or family has been notified they are expected to be medically stable for discharge on the following date: 12/18/2024 Patient requires continued hospitalization due to: Workup for sepsis Discussed with the patient and/or family that the following is a potential discharge location, understanding that the final plan will depend on the patient's progress and shared decision-making: Home The following resources have been ordered to assist with discharge barriers: care management, PT, OT Quality measures DVT prophylaxis: eliquis Serna catheter: absent Code status Full Code Subjective Patient seen and examined today morning at bedside. No acute overnight events. Still lying in bed comfortably NAD on 2 L. Still complaining of cough. No fever overnight. Discussed with the patient at bedside the results of the blood cultures and the sputum cultures. Encourage the patient to get out of bed and work with physical therapy today morning. I was able to answer all questions at bedside Objective BP 103/60 Pulse (!) 57 Temp 97.7 degrees F (36.5 degrees C) (Oral) Resp (!) 22 Ht 6' 1 Wt 77.2 kg (170 lb 3.1 oz) SpO2 94% BMI 22.45 kg/m General appearance: alert; chronically ill appearing; in no acute distress HEENT: Head- normocephalic; Eyes- EOMI, sclera anicteric; Throat- mucous membranes moist Cardiovascular: regular rate and rhythm; normal S1, S2; no murmurs, rubs, clicks or gallops; peripheral edema absent Respiratory: Mild rhonchi at the base of the lungs on nasal cannula Abdomen: soft, non-tender, non-distended Neurological: oriented x 3; normal speech; no focal findings or movement disorder noted Musculoskeletal: no significant deformity or tenderness to palpation Skin: normal coloration Psych: normal mood and affect AUTHENTICATED BY SIVAKUMAR ARIAS, ON 12/17/2024 14:06:44 [facility] 12-17-2024 Plan of care note Problem: Actual or potential alteration in health Goal: Absence of healthcare acquired conditions Outcome: Partially Met Goal: Knowledge of Interdisciplinary Plan of Care Outcome: Partially Met Goal: Knowledge of Enviroment Outcome: Partially Met Problem: Pain Goal: Reduced pain sensation Outcome: Partially Met Goal: Control of acute pain to acceptable level Outcome: Partially Met Goal: Able to cope with pain Outcome: Partially Met Goal: Able to achieve maximum level of physical functioning Outcome: Partially Met Goal: Able to achieve maximum level of psychosocial functioning Outcome: Partially Met [facility] 12-17-2024 Plan of care note Problem: Actual or potential alteration in health Goal: Absence of healthcare acquired conditions Outcome: Partially Met Goal: Knowledge of Interdisciplinary Plan of Care Outcome: Partially Met Goal: Knowledge of Enviroment Outcome: Partially Met [facility] 12-16-2024 Consult note Formatting of th is note is different from the original. Physical Therapy PHYSICAL THERAPY EVALUATION AND DISCHARGE NOTE Dx: severe sepsis, leukocytosis, COPD, elevated troponin, PE, squamous cell carcinoma of the tongue s/p radiation and PEG Skilled Therapy Needs After Discharge Anticipate Resolution of Current Assessment Limitations Including: None Are card cleaner Therapy Services Needed After Discharge: No PT DME Recommendation: None Rehab Potential: Good Outcomes Measures Prior Function - Basic Mobility Raw Score: 24 Points Prior Function - Basic Mobility % Impaired: 0% AM-PAC Basic Mobility Raw Score: 24 Points AM-PAC Basic Mobility % Impaired: 0% Physical Therapy Assessment History: The following factors influence the patient's participation in the PT plan of care: Personal Factors: Decreased Insight, Age Environmental Factors: Multi-level home, Steps to enter home The following co-morbidities (from this admission or prior) influence the patient's participation in this plan of care: in H&P Number of History elements affecting this patient's PT plan of care: 1 to 2 Examination of Body Systems: The patient presents with: Neurologic Impairments: Balance, Hearing Cardiopulmonary Impairments: O2 Saturation Regulation with Activity. These impairments result in limitations of Insight, Safety Awareness. These impairments result in restrictions of . Number of Body Systems elements affecting this patient's PT plan of care: 1 to 2. Clinical Presentation: The patient's clinical presentation for this PT evaluation is with stable and/or uncomplicated characteristics as evidenced by current PT documentation. Activity Tolerance Activity Tolerance: Endurance does not limit participation in activity (on 2L) Therapy Precautions General Rehab Precautions: None Strength Assessment Strength RLE RLE Overall Strength: 5/5 Strength LLE LLE Overall Strength: 5/5 Balance Assessment Sitting Balance - Static: Independent Sitting Balance - Dynamic: Independent Standing Balance - Static: Independent Standing Balance - Dynamic: Independent Bed Mobility Rolling: Independent Supine to Sit: Independent Transfers Sit to Stand: Independent Bed to Chair: Independent Stand Pivot Transfers: Independent Gait/Locomotion Gait Assistance: Independent Assistive Device: (no AD) Distance: 350 Feet Pattern: Within Functional Limits Weight Bearing Status: able to maintain Gait Loss(es) of Balance: (no LOB) Environment/Terrain: open/community environment, multiple distractions Stair Management Technique: (pt denies need to practice) Additional Assessment Details pt is at baseline mobility, has no skilled PT needs at this time, PT to sign off Home Living Obtained Home Living and PLOF info from: Patient Lives With: Spouse Type of Home: House Home Layout: Two level Steps to enter home: Yes Rails to enter home: None Number of stairs to enter home: 2 Bathroom Shower/Tub: Walk-in shower Bathroom Toilet: Raised Bathroom Equipment: Grab bars in shower, Shower chair Mobility Equipment: Cane, Wheeled walker, Transport chair, Home oxygen Prior Level of Function Level of [place] - Transfers/Ambulation/Mobility: Independent with functional transfers, Independent with household ambulation, Independent with community ambulation (no AD) Level of [place] - ADLs: Independent Level of [place] - Homemaking: Independent Driving: Patient drives 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 Chronic kidney disease (CKD) stage G1/A2, glomerular filtration rate (GFR) equal to or greater than 90 mL/min/1.73 square meter and albuminuria creatinine ratio between 30-299 mg/g COPD (chronic obstructive pulmonary disease) (HCC) ED (erectile dysfunction) Edema leg bilateral GERD (gastroesophageal reflux disease) Hepatic steatosis Hyperlipidemia Hypertension Insomnia Lung disorder Migraine without aura and without status migrainosus, not intractable 09/25/2023 Prediabetes Past Surgical History: Procedure Laterality Date ABDOMINAL SURGERY CATARACT EXTRACTION BILATERAL W/ ANTERIOR VITRECTOMY CATARACT EXTRACTION BILATERAL W/ ANTERIOR VITRECTOMY Bilateral CT COLONOSCOPY 03/25/[address]22 CT COLONOSCOPY LAPAROSCOPIC INGUINAL HERNIA REPAIR [address] Holder for tongue cancer PEG TUBE PLACEMENT 04/04/2023 VASECTOMY For complete objective data, detailed plan of care and patient education refer to: PT Evaluation flowsheet, PT Evaluation and Treatment flowsheet, PT Treatment flowsheet, patient Plan of Care, Plan of Care progress note, and Patient Education. This note stands as the current Discharge Summary upon patient discharge from the hospital or completion of Physical Therapy Plan. [facility] 12-16-2024 Consult note Formatting of th is note is different from the original. Physical Therapy PHYSICAL THERAPY EVALUATION AND DISCHARGE NOTE Dx: severe sepsis, leukocytosis, COPD, elevated troponin, PE, squamous cell carcinoma of the tongue s/p radiation and PEG Skilled Therapy Needs After Discharge Anticipate Resolution of Current Assessment Limitations Including: None Are card cleaner Therapy Services Needed After Discharge: No PT DME Recommendation: None Rehab Potential: Good Outcomes Measures Prior Function - Basic Mobility Raw Score: 24 Points Prior Function - Basic Mobility % Impaired: 0% AM-PAC Basic Mobility Raw Score: 24 Points AM-PAC Basic Mobility % Impaired: 0% Physical Therapy Assessment History: The following factors influence the patient's participation in the PT plan of care: Personal Factors: Decreased Insight, Age Environmental Factors: Multi-level home, Steps to enter home The following co-morbidities (from this admission or prior) influence the patient's participation in this plan of care: in H&P Number of History elements affecting this patient's PT plan of care: 1 to 2 Examination of Body Systems: The patient presents with: Neurologic Impairments: Balance, Hearing Cardiopulmonary Impairments: O2 Saturation Regulation with Activity. These impairments result in limitations of Insight, Safety Awareness. These impairments result in restrictions of . Number of Body Systems elements affecting this patient's PT plan of care: 1 to 2. Clinical Presentation: The patient's clinical presentation for this PT evaluation is with stable and/or uncomplicated characteristics as evidenced by current PT documentation. Activity Tolerance Activity Tolerance: Endurance does not limit participation in activity (on 2L) Therapy Precautions General Rehab Precautions: None Strength Assessment Strength RLE RLE Overall Strength: 5/5 Strength LLE LLE Overall Strength: 5/5 Balance Assessment Sitting Balance - Static: Independent Sitting Balance - Dynamic: Independent Standing Balance - Static: Independent Standing Balance - Dynamic: Independent Bed Mobility Rolling: Independent Supine to Sit: Independent Transfers Sit to Stand: Independent Bed to Chair: Independent Stand Pivot Transfers: Independent Gait/Locomotion Gait Assistance: Independent Assistive Device: (no AD) Distance: 350 Feet Pattern: Within Functional Limits Weight Bearing Status: able to maintain Gait Loss(es) of Balance: (no LOB) Environment/Terrain: open/community environment, multiple distractions Stair Management Technique: (pt denies need to practice) Additional Assessment Details pt is at baseline mobility, has no skilled PT needs at this time, PT to sign off Home Living Obtained Home Living and PLOF info from: Patient Lives With: Spouse Type of Home: House Home Layout: Two level Steps to enter home: Yes Rails to enter home: None Number of stairs to enter home: 2 Bathroom Shower/Tub: Walk-in shower Bathroom Toilet: Raised Bathroom Equipment: Grab bars in shower, Shower chair Mobility Equipment: Cane, Wheeled walker, Transport chair, Home oxygen Prior Level of Function Level of [place] - Transfers/Ambulation/Mobility: Independent with functional transfers, Independent with household ambulation, Independent with community ambulation (no AD) Level of [place] - ADLs: Independent Level of [place] - Homemaking: Independent Driving: Patient drives Past Medical History: Diagnosis Date Arthritis Asthma Benign prostatic hyperplasia Cancer (HCC) 2009 Tongue Chronic kidney disease (CKD) stage G1/A2, glomerular filtration rate (GFR) equal to or greater than 90 mL/min/1.73 square meter and albuminuria creatinine ratio between 30-299 mg/g COPD (chronic obstructive pulmonary disease) (HCC) ED (erectile dysfunction) Edema leg bilateral GERD (gastroesophageal reflux disease) Hepatic steatosis Hyperlipidemia Hypertension Insomnia Lung disorder Migraine without aura and without status migrainosus, not intractable 09/25/2023 Prediabetes Past Surgical History: Procedure Laterality Date ABDOMINAL SURGERY CATARACT EXTRACTION BILATERAL W/ ANTERIOR VITRECTOMY CATARACT EXTRACTION BILATERAL W/ ANTERIOR VITRECTOMY Bilateral CT COLONOSCOPY 03/25/2022 CT COLONOSCOPY LAPAROSCOPIC INGUINAL HERNIA REPAIR [address] Holder for tongue cancer PEG TUBE PLACEMENT 04/04/2023 VASECTOMY For complete objective data, detailed plan of care and patient education refer to: PT Evaluation flowsheet, PT Evaluation and Treatment flowsheet, PT Treatment flowsheet, patient Plan of Care, Plan of Care progress note, and Patient Education. This note stands as the current Discharge Summary upon patient discharge from the hospital or completion of Physical Therapy Plan. Occupational Therapy OCCUPATIONAL THERAPY SCREEN Patient was screened by Occupational Therapy. Upon review of the chart and discussion with the nurse and discussion with PT, no skilled Occupational Therapy intervention is indicated. Pt is completing ADLs without assist and is up independently in the room. Pt with no OT needs, order discontinued at this time. Associated Order(s): IP CONSULT TO DIETITIAN Nutrition Care Initial Assessment Reason for visit: Physician Consult: Tube Feeding Initiate and Manage Nutrition Diagnosis: Inadequate oral intake r/t inability to consume sufficient energy PO aeb NPO with enteral nutrition. Nutrition Intervention Initiate Enteral Nutrition Nutrition Prescription: Diet:Continue NPO Tube Feeding: Compleat Peptide 1.5 @ 120mL X 12 hours. (1440 mL formula, 2160 calories, 105 grams of protein and 1095mL h2o). Flush with 30 mL h2o q 4 hours. Tube Feeding Route:J-tube Nutrition Goals: Receive greater than 80% of rx'd EN volume Start Date:12/16/2024 Expected End Date:12/20/2024 Nutrition Education: Not appropriate due to clinical presentation and No needs at this time Assessment: Pertinent clinical information: Presents with weakness, lethargy,fever. PEGJ in place with history of dysphagia/aspiration. S/p PEGJ in September of 2024. 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 Chronic kidney disease (CKD) stage G1/A2, glomerular filtration rate (GFR) equal to or greater than 90 mL/min/1.73 square meter and albuminuria creatinine ratio between 30-299 mg/g COPD (chronic obstructive pulmonary disease) (HCC) ED (erectile dysfunction) Edema leg bilateral GERD (gastroesophageal reflux disease) Hepatic steatosis Hyperlipidemia Hypertension Insomnia Lung disorder Migraine without aura and without status migrainosus, not intractable 09/25/2023 Prediabetes Past Surgical History: Procedure Laterality Date ABDOMINAL SURGERY CATARACT EXTRACTION BILATERAL W/ ANTERIOR VITRECTOMY CATARACT EXTRACTION BILATERAL W/ ANTERIOR VITRECTOMY Bilateral CT COLONOSCOPY 03/25/2022 CT COLONOSCOPY LAPAROSCOPIC INGUINAL HERNIA REPAIR [address] Holder for tongue cancer PEG TUBE PLACEMENT 04/04/2023 VASECTOMY Height: 6' 1 Current weight: 77.2 kg (170 lb 3.1 oz) BMI Body mass index is 22.45 kg/m . Weight hx: Wt Readings from Last 10 Encounters: 12/16/24 77.2 kg (170 lb 3.1 oz) 11/22/24 88.9 kg (195 lb 15.8 oz) 11/15/24 84.2 kg (185 lb 9.6 oz) 11/09/24 84.6 kg (186 lb 9.6 oz) 09/14/24 84.1 kg (185 lb 6.4 oz) 08/11/24 80.7 kg (178 lb) 07/14/24 81.9 kg (180 lb 9.6 oz) 06/15/24 83.9 kg (185 lb) 06/07/24 83.7 kg (184 lb 8.4 oz) 06/07/24 81.6 kg (180 lb) Significant Weight Change: weight appears low. Current diet order: Diet: NPO Recent intake: Current intake does not meet estimated needs. Barriers to adequate p.o. intakes: Dysphagia Nutrition Related Allergies/Intolerances: No Nutrition Related Allergies noted Cultural or Rastafari Dietary Needs :No Cultural or Rastafari Dietary needs noted Patient/family comments: is not present, noted EN pump in room but per previous conversations with , it's easier to infuse hospital EN/ hospital pump as the RNs know how to work the hospital pumps., Deferred: Pt sleeping HEN per notes, 3 Boost VHC + 2 Compleat 1.4 @ rate of 105 mL/hr X 10 hours. (~2200 calories) Difficulty Chewing or Swallowing: Yes- Pt with missing teeth/dentures Skin Integrity: Intact GI Function: LBM: 12/15/2024 Fluid Status: WNL Physical Appearance: Unable to assess at this time, Deferred: Pt sleeping Labs: Recent Labs 12/15/24201712/15/24202712/16/24 0228 12/16/24 0824 NA 147* < > 145 -- K 3.8 < > 3.8 -- BICARB -- -- CL 105 < > 109* -- GLUCOSE 126* < > 118* -- BUN 31* -- 26* -- CREATININE 1.03 -- 0.85 -- MG -- -- -- 2.0 PHOS -- -- -- 2.5 ALBUMIN 4.1 -- -- -- < > = values in this interval not displayed. Recent Labs 12/15/24201712/15/24202712/16/24 0228 GLUCOSE 126* 123* 118* Lab Results Component Value Date HGBA1C 5.4 11/18/2024 Home Medications Reviewed: Yes Scheduled Meds: apixaban 5 mg Tube BID cefePIMe (MAXIPIME) IVPB 2,000 mg Intravenous Q8H cyanocobalamin 2,500 mcg Tube Nightly [Held by provider] doxazosin 4 mg Oral Nightly famotidine 20 mg Tube BID roflumilast 500 mcg Tube Daily sertraline 50 mg Tube Daily vancomycin 1,000 mg Intravenous Q12H Continuous Infusions: Nutrient Depleting Medications: No chronic use of nutrient depleting medications noted. Medications whose absorption may be altered by tube feeding: None Identified Estimated Energy Needs Total Energy Estimated Needs: [id number] Method for Estimating Needs: 30 kcal/kg Total Protein Estimated Needs: 95 Method for Estimating Needs: 1.2 gm/kg Margarita Cohen RD Patient Name: Amy Sun MR #: [id number] : 1950 Physicians: Ulices Clark DO (Family); No ref. provider found (Referring) Chief complaint: Amy Sun is a 74 y.o. male presented with worsening history of fever, and weakness. History: I have reviewed the patient's past medical history, past surgical history, family history, social history. 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 Patient was recently discharged on November 22, 2024, at that time was treated for possible aspiration pneumonia with septic shock, and was recorded MRSA positive in the sputum, was given p.o. linezolid on discharge for 7 days. at the bedside has offered most of the history as patient communication was poor due to tongue cancer. States that patient since 2 days has been having fever , And also was weak and coughing with sputum production. Since on this admission patient had had a Tmax of 98.6, there was no recorded history of nausea vomiting, or diarrhea, no history of chest pain, and no obvious urinary symptoms of dysuria or hematuria, no obvious history of joint pain or swellings, he was found with systolic in the 60s since on admission, and also had a leukocytosis with WBC of 23,000 , had a blood culture that is still pending with no growth in 2 sets of blood culture while the COVID-19 screening has been negative. During this evaluation patient had a chest x-ray that had shown slight but noticeable improve infiltrates in the mid Lung chen. had stated that while patient was discharged last time, he had made some improvement but had not quite recovered fully though he had been done with the antibiotics prescribed. Patient is currently being evaluated for fever, history of pneumonia, malignancy of the tongue, and leukocytosis, hypotension and antibiotics management. 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 Chronic kidney disease (CKD) stage G1/A2, glomerular filtration rate (GFR) equal to or greater than 90 mL/min/1.73 square meter and albuminuria creatinine ratio between 30-299 mg/g COPD (chronic obstructive pulmonary disease) (HCC) ED (erectile dysfunction) Edema leg bilateral GERD (gastroesophageal reflux disease) Hepatic steatosis Hyperlipidemia Hypertension Insomnia Lung disorder Migraine without aura and without status migrainosus, not intractable 09/25/2023 Prediabetes Past Surgical History: Procedure Laterality Date ABDOMINAL SURGERY CATARACT EXTRACTION BILATERAL W/ ANTERIOR VITRECTOMY CATARACT EXTRACTION BILATERAL W/ ANTERIOR VITRECTOMY Bilateral CT COLONOSCOPY 03/25/[address]22 CT COLONOSCOPY LAPAROSCOPIC INGUINAL HERNIA REPAIR [address] Holder for tongue cancer PEG TUBE PLACEMENT 04/04/2023 VASECTOMY Family History Problem Relation Age of Onset Stroke Father Heart disease Father Coronary artery disease Father Diabetes Sister Coronary artery disease Brother Social History [1] Travel History: None Animal Contact: None Medications: I have reviewed the patient's medications. Scheduled Meds: apixaban 5 mg Tube BID aspirin 81 mg Tube Daily cefePIMe (MAXIPIME) IVPB 2,000 mg Intravenous Q8H cyanocobalamin 2,500 mcg Tube Nightly [Held by provider] doxazosin 4 mg Oral Nightly famotidine 20 mg Tube BID roflumilast 500 mcg Tube Daily sertraline 50 mg Tube Daily vancomycin 1,000 mg Intravenous Q12H Allergy Information: I have reviewed the patient's allergies. Budesonide, Revefenacin, and Ipratropium-albuterol Review of Systems: Review of Systems Constitutional: Positive for appetite change, chills, fatigue and fever. Respiratory: Negative for cough, shortness of breath and wheezing. Cardiovascular: Negative for chest pain, palpitations and leg swelling. Gastrointestinal: Negative for abdominal distention, abdominal pain, constipation, diarrhea, nausea and vomiting. Endocrine: Negative for polydipsia, polyphagia and polyuria. Genitourinary: Negative for dysuria, flank pain, frequency and hematuria. Musculoskeletal: Negative for joint swelling, neck pain and neck stiffness. Skin: Negative for color change, pallor and rash. Neurological: Positive for weakness. Negative for dizziness, numbness and headaches. Psychiatric/Behavioral: Negative for confusion. Labs: Lab Results Component Value Date WBC 20.37 (H) 12/16/2024 HGB 12.2 (L) 12/16/2024 HCT 38.3 (L) 12/16/2024 MCV 95.3 12/16/2024 PLT 168 12/16/2024 Lab Results Component Value Date HGBA1C 5.4 11/18/2024 No results found for: SEDRATE No results found for: CRP Radiology: XR Chest 1 View Final Result 1. Slight but noticeably improved infiltrate in the mid right lung field. 2. Slight bibasilar atelectasis. Workstation ID: [id number] Physical Examination: Vital Signs: BP 98/60 Pulse 60 Temp 97.7 F (36.5 C) (Oral) Resp (!) 19 Ht 6' 1 Wt 77.2 kg (170 lb 3.1 oz) SpO2 96% BMI 22.45 kg/m Physical Exam Constitutional: Appearance: He is well-developed. He is ill-appearing. HENT: Head: Normocephalic. Eyes: General: Right eye: No discharge. Left eye: No discharge. Cardiovascular: Rate and Rhythm: Normal rate and regular rhythm. Heart sounds: Normal heart sounds. Pulmonary: Effort: Respiratory distress present. Breath sounds: Rales present. No wheezing. Comments: On 2 L of nasal cannula. Chest: Chest wall: No tenderness. Abdominal: General: There is no distension. Tenderness: There is no abdominal tenderness. There is no rebound. Comments: PEG tube in place. Musculoskeletal: General: No tenderness. Cervical back: Normal range of motion and neck supple. Right lower leg: No edema. Left lower leg: No edema. Skin: General: Skin is warm. Coloration: Skin is not pale. Findings: No rash. Neurological: Mental Status: He is oriented to person, place, and time. Comments: Patient with poor communication Psychiatric: Behavior: Behavior normal. Thought Content: Thought content normal. Assessment and Plan: Patient with 1. Fever, 2. History of pneumonia, 3. Malignancy of the tongue, 4. Leukocytosis, 5. Hypotension Plan. Continue patient on current therapy Patient currently on IV vancomycin Patient on IV cefepime Follow-up lab Get repeat sputum culture Consider CT scan of the chest abdomen and pelvis Reviewed previous chest x-ray, with some improvement in the infiltrates in the mid lung field. Stool for C. difficile if diarrhea Reviewed blood cultures with no growth. Get urine for strep and Legionella antigen. Get procalcitonin level and ESR and C-reactive protein I reviewed previous CTA pulmonary and abdomen and pelvis from November 17, 2024 With right upper lobe and middle lobe airspace disease compatible with pneumonia, left renal abdominal aortic aneurysm. I reviewed urine analysis Continue to follow with you. I discussed with the at the bedside on management plan. Problem List Items Addressed This Visit Other * (Principal) Sepsis (HCC) - Primary I have taken time to review patient's information and having discussions, including discussion on antibiotics management, its side effects, benefits and risk., I appreciate seeing your patient, will continue to follow with you, and adjust with more information. Medical decision making.High. Drug Rx requiring intensive monitoring for toxicity and side effects; Extensive discussion regarding a diagnosis and multiple treatment options. This note is created with the assistance of a speech-recognition program. While intending to generate a document that actually reflects the content of the visit, the document can still have some errors including those of syntax and sound a- like substitutions which may escape proofreading. In such instances, actual meaning can be extrapolated by contextual derivation. [1] Social History Socioeconomic History Marital status: Tobacco Use Smoking status: Former Current packs/day: 0.00 Types: Cigarettes Start date: 1960 Quit date: 2009 Years since quittin.8 Passive exposure: Past Smokeless tobacco: Never Vaping Use Vaping status: Never Used Substance and Sexual Activity Alcohol use: Not Currently Drug use: Not Currently Social Drivers of Health Financial Resource Strain: Low Risk (09/14/2024) Overall Financial Resource Strain (CARDIA) Difficulty of Paying Living Expenses: Not hard at all Food Insecurity: No Food Insecurity (12/16/2024) Hunger Vital Sign Worried About Running Out of Food in the Last Year: Never true Ran Out of Food in the Last Year: Never true Transportation Needs: No Transportation Needs (12/16/2024) PRAPARE - Transportation Lack of Transportation (Medical): No Lack of Transportation (Non-Medical): No Social Connections: Unknown (09/14/2024) Social Connection and Isolation Panel [NHANES] Frequency of Social Gatherings with Friends and Family: Once a week Housing Stability: Low Risk (12/16/2024) Housing Stability Vital Sign Unable to Pay for Housing in the Last Year: No Number of Times Moved in the Last Year: 0 Homeless in the Last Year: No Associated Order(s): IP CONSULT TO CARE MANAGEMENT Date: 12/16/2024 Time: 10:29 AM Patient Name: Amy Sun Date of : 1950 Reason for Consult: Discharge Plan Discussion: (5539) Barbie (social work academic intern) and Nida (social work academic intern visited patient(pt)'s room; pt's was present. Pt was resting, so consult was conducted with pt's . Pt's reported pt usually only where his oxygen at night while at home, pt has chronic pain in his neck and head(migraines), and pt is Yarsanism. Pt's shared that pt is physically active, as he golfs often and drives himself there. Pt's stated, however she does most of the driving. Pt's reported pt sleeps in a recliner in the basement, so he goes up and down the stairs regularly. Pt's stated pt does not have any current home services and uses [employer] as their medical supply company. Nida told pt's care management will continue to follow pt's progress while he is in the hospital to see if pt may require additional needs. Pt's acknowledged this information. Plan for discharge as of now is for pt to go home with his . Discharge Plan: Plan A: Home Transportation Assessment and Background Information: History of falls in last 6 months:: No Chronic pain:: (!) Yes Advance Directives: Advance Directive: Patient does not have advance directive, would not like information Information Provided on Healthcare Directives: No Patient Support: Does Patient have a PCP?: Yes (Dr. Ulices Clark) Living Arrangements: Spouse/significant other Type of Residence: Multi-level (stairs) Support Systems: Spouse/significant other, Other (Comment) Assistance Needed: no Current Home Equipment: Oxygen Caregiver Assessment: SDOH: Cosigned by Nida Boo LISW at 12/16/2024 11:26 AM EDT Associated attestation - Nida Boo LISW - 12/16/2024 11:26 AM EDT This worker reviewed and is in agreement with charting completed by social work academic intern. Per spouse, patient receives his tube feed supplies through [facility] [place]. Contacted [facility] [place] and spoke with Tamika. Per Tamika, a new order is only needed if tube feeds change at discharge. documented in this encounter [facility] 12-16-2024 Consult note Formatting of th is note might be different from the original. Occupational Therapy OCCUPATIONAL THERAPY SCREEN Patient was screened by Occupational Therapy. Upon review of the chart and discussion with the nurse and discussion with PT, no skilled Occupational Therapy intervention is indicated. Pt is completing ADLs without assist and is up independently in the room. Pt with no OT needs, order discontinued at this time. [facility] 12-16-2024 Consult note Associated Order (s): IP CONSULT TO DIETITIAN Nutrition Care Initial Assessment Reason for visit: Physician Consult: Tube Feeding Initiate and Manage Nutrition Diagnosis: Inadequate oral intake r/t inability to consume sufficient energy PO aeb NPO with enteral nutrition. Nutrition Intervention Initiate Enteral Nutrition Nutrition Prescription: Diet:Continue NPO Tube Feeding: Compleat Peptide 1.5 @ 120mL X 12 hours. (1440 mL formula, 2160 calories, 105 grams of protein and 1095mL h2o). Flush with 30 mL h2o q 4 hours. Tube Feeding Route:J-tube Nutrition Goals: Receive greater than 80% of rx'd EN volume Start Date:12/16/2024 Expected End Date:12/20/2024 Nutrition Education: Not appropriate due to clinical presentation and No needs at this time Assessment: Pertinent clinical information: Presents with weakness, lethargy,fever. PEGJ in place with history of dysphagia/aspiration. S/p PEGJ in September of 2024. Past Medical History: Diagnosis Date Arthritis Asthma Benign prostatic hyperplasia Cancer (HCC) 2009 Tongue Chronic kidney disease (CKD) stage G1/A2, glomerular filtration rate (GFR) equal to or greater than 90 mL/min/1.73 square meter and albuminuria creatinine ratio between 30-299 mg/g COPD (chronic obstructive pulmonary disease) (HCC) ED (erectile dysfunction) Edema leg bilateral GERD (gastroesophageal reflux disease) Hepatic steatosis Hyperlipidemia Hypertension Insomnia Lung disorder Migraine without aura and without status migrainosus, not intractable 09/25/2023 Prediabetes Past Surgical History: Procedure Laterality Date ABDOMINAL SURGERY CATARACT EXTRACTION BILATERAL W/ ANTERIOR VITRECTOMY CATARACT EXTRACTION BILATERAL W/ ANTERIOR VITRECTOMY Bilateral CT COLONOSCOPY 03/25/2022 CT COLONOSCOPY LAPAROSCOPIC INGUINAL HERNIA REPAIR [address] Holder for tongue cancer PEG TUBE PLACEMENT 04/04/2023 VASECTOMY Height: 6' 1 Current weight: 77.2 kg (170 lb 3.1 oz) BMI Body mass index is 22.45 kg/m . Weight hx: Wt Readings from Last 10 Encounters: 12/16/24 77.2 kg (170 lb 3.1 oz) 11/22/24 88.9 kg (195 lb 15.8 oz) 11/15/24 84.2 kg (185 lb 9.6 oz) 11/09/24 84.6 kg (186 lb 9.6 oz) 09/14/24 84.1 kg (185 lb 6.4 oz) 08/11/24 80.7 kg (178 lb) 07/14/24 81.9 kg (180 lb 9.6 oz) 06/15/24 83.9 kg (185 lb) 06/07/24 83.7 kg (184 lb 8.4 oz) 06/07/24 81.6 kg (180 lb) Significant Weight Change: weight appears low. Current diet order: Diet: NPO Recent intake: Current intake does not meet estimated needs. Barriers to adequate p.o. intakes: Dysphagia Nutrition Related Allergies/Intolerances: No Nutrition Related Allergies noted Cultural or Rastafari Dietary Needs :No Cultural or Rastafari Dietary needs noted Patient/family comments: is not present, noted EN pump in room but per previous conversations with , it's easier to infuse hospital EN/ hospital pump as the RNs know how to work the hospital pumps., Deferred: Pt sleeping HEN per notes, 3 Boost VHC + 2 Compleat 1.4 @ rate of 105 mL/hr X 10 hours. (~2200 calories) Difficulty Chewing or Swallowing: Yes- Pt with missing teeth/dentures Skin Integrity: Intact GI Function: LBM: 12/15/2024 Fluid Status: WNL Physical Appearance: Unable to assess at this time, Deferred: Pt sleeping Labs: Recent Labs 12/15/24201712/15/24202712/16/2422712/16/24823 NA 147* < > 145 -- K 3.8 < > 3.8 -- BICARB -- CL 105 < > 109* -- GLUCOSE 126* < > 118* -- BUN 31* -- 26* -- CREATININE 1.03 -- 0.85 -- MG -- -- -- 2.0 PHOS -- -- -- 2.5 ALBUMIN 4.1 -- -- -- < > = values in this interval not displayed. Recent Labs 12/15/24201712/15/24202712/16/24227 GLUCOSE 126* 123* 118* Lab Results Component Value Date HGBA1C 5.4 11/18/2024 Home Medications Reviewed: Yes Scheduled Meds: apixaban 5 mg Tube BID cefePIMe (MAXIPIME) IVPB 2,000 mg Intravenous Q8H cyanocobalamin 2,500 mcg Tube Nightly [Held by provider] doxazosin 4 mg Oral Nightly famotidine 20 mg Tube BID roflumilast 500 mcg Tube Daily sertraline 50 mg Tube Daily vancomycin 1,000 mg Intravenous Q12H Continuous Infusions: Nutrient Depleting Medications: No chronic use of nutrient depleting medications noted. Medications whose absorption may be altered by tube feeding: None Identified Estimated Energy Needs Total Energy Estimated Needs: [id number] Method for Estimating Needs: 30 kcal/kg Total Protein Estimated Needs: 95 Method for Estimating Needs: 1.2 gm/kg Margarita Cohen RD [facility] 12-16-2024 Consult note Formatting of th is note is different from the original. Patient Name: Amy Sun MR #: [id number] : 1950 Physicians: Ulices Clark DO (Family); No ref. provider found (Referring) Chief complaint: Amy Sun is a 74 y.o. male presented with worsening history of fever, and weakness. History: I have reviewed the patient's past medical history, past surgical history, family history, social history. 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 Patient was recently discharged on November 22, 2024, at that time was treated for possible aspiration pneumonia with septic shock, and was recorded MRSA positive in the sputum, was given p.o. linezolid on discharge for 7 days. at the bedside has offered most of the history as patient communication was poor due to tongue cancer. States that patient since 2 days has been having fever , And also was weak and coughing with sputum production. Since on this admission patient had had a Tmax of 98.6, there was no recorded history of nausea vomiting, or diarrhea, no history of chest pain, and no obvious urinary symptoms of dysuria or hematuria, no obvious history of joint pain or swellings, he was found with systolic in the 60s since on admission, and also had a leukocytosis with WBC of 23,000 , had a blood culture that is still pending with no growth in 2 sets of blood culture while the COVID-19 screening has been negative. During this evaluation patient had a chest x-ray that had shown slight but noticeable improve infiltrates in the mid Lung chen. had stated that while patient was discharged last time, he had made some improvement but had not quite recovered fully though he had been done with the antibiotics prescribed. Patient is currently being evaluated for fever, history of pneumonia, malignancy of the tongue, and leukocytosis, hypotension and antibiotics management. 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 Chronic kidney disease (CKD) stage G1/A2, glomerular filtration rate (GFR) equal to or greater than 90 mL/min/1.73 square meter and albuminuria creatinine ratio between 30-299 mg/g COPD (chronic obstructive pulmonary disease) (HCC) ED (erectile dysfunction) Edema leg bilateral GERD (gastroesophageal reflux disease) Hepatic steatosis Hyperlipidemia Hypertension Insomnia Lung disorder Migraine without aura and without status migrainosus, not intractable 09/25/2023 Prediabetes Past Surgical History: Procedure Laterality Date ABDOMINAL SURGERY CATARACT EXTRACTION BILATERAL W/ ANTERIOR VITRECTOMY CATARACT EXTRACTION BILATERAL W/ ANTERIOR VITRECTOMY Bilateral CT COLONOSCOPY 03/25/[address] COLONOSCOPY LAPAROSCOPIC INGUINAL HERNIA REPAIR [address] Holder for tongue cancer PEG TUBE PLACEMENT 04/04/2023 VASECTOMY Family History Problem Relation Age of Onset Stroke Father Heart disease Father Coronary artery disease Father Diabetes Sister Coronary artery disease Brother Social History [1] Travel History: None Animal Contact: None Medications: I have reviewed the patient's medications. Scheduled Meds: apixaban 5 mg Tube BID aspirin 81 mg Tube Daily cefePIMe (MAXIPIME) IVPB 2,000 mg Intravenous Q8H cyanocobalamin 2,500 mcg Tube Nightly [Held by provider] doxazosin 4 mg Oral Nightly famotidine 20 mg Tube BID roflumilast 500 mcg Tube Daily sertraline 50 mg Tube Daily vancomycin 1,000 mg Intravenous Q12H Allergy Information: I have reviewed the patient's allergies. Budesonide, Revefenacin, and Ipratropium-albuterol Review of Systems: Review of Systems Constitutional: Positive for appetite change, chills, fatigue and fever. Respiratory: Negative for cough, shortness of breath and wheezing. Cardiovascular: Negative for chest pain, palpitations and leg swelling. Gastrointestinal: Negative for abdominal distention, abdominal pain, constipation, diarrhea, nausea and vomiting. Endocrine: Negative for polydipsia, polyphagia and polyuria. Genitourinary: Negative for dysuria, flank pain, frequency and hematuria. Musculoskeletal: Negative for joint swelling, neck pain and neck stiffness. Skin: Negative for color change, pallor and rash. Neurological: Positive for weakness. Negative for dizziness, numbness and headaches. Psychiatric/Behavioral: Negative for confusion. Labs: Lab Results Component Value Date WBC 20.37 (H) 12/16/2024 HGB 12.2 (L) 12/16/2024 HCT 38.3 (L) 12/16/2024 MCV 95.3 12/16/2024 PLT 168 12/16/2024 Lab Results Component Value Date HGBA1C 5.4 11/18/2024 No results found for: SEDRATE No results found for: CRP Radiology: XR Chest 1 View Final Result 1. Slight but noticeably improved infiltrate in the mid right lung field. 2. Slight bibasilar atelectasis. Workstation ID: [id number] Physical Examination: Vital Signs: BP 98/60 Pulse 60 Temp 97.7 F (36.5 C) (Oral) Resp (!) 19 Ht 6' 1 Wt 77.2 kg (170 lb 3.1 oz) SpO2 96% BMI 22.45 kg/m Physical Exam Constitutional: Appearance: He is well-developed. He is ill-appearing. HENT: Head: Normocephalic. Eyes: General: Right eye: No discharge. Left eye: No discharge. Cardiovascular: Rate and Rhythm: Normal rate and regular rhythm. Heart sounds: Normal heart sounds. Pulmonary: Effort: Respiratory distress present. Breath sounds: Rales present. No wheezing. Comments: On 2 L of nasal cannula. Chest: Chest wall: No tenderness. Abdominal: General: There is no distension. Tenderness: There is no abdominal tenderness. There is no rebound. Comments: PEG tube in place. Musculoskeletal: General: No tenderness. Cervical back: Normal range of motion and neck supple. Right lower leg: No edema. Left lower leg: No edema. Skin: General: Skin is warm. Coloration: Skin is not pale. Findings: No rash. Neurological: Mental Status: He is oriented to person, place, and time. Comments: Patient with poor communication Psychiatric: Behavior: Behavior normal. Thought Content: Thought content normal. Assessment and Plan: Patient with 1. Fever, 2. History of pneumonia, 3. Malignancy of the tongue, 4. Leukocytosis, 5. Hypotension Plan. Continue patient on current therapy Patient currently on IV vancomycin Patient on IV cefepime Follow-up lab Get repeat sputum culture Consider CT scan of the chest abdomen and pelvis Reviewed previous chest x-ray, with some improvement in the infiltrates in the mid lung field. Stool for C. difficile if diarrhea Reviewed blood cultures with no growth. Get urine for strep and Legionella antigen. Get procalcitonin level and ESR and C-reactive protein I reviewed previous CTA pulmonary and abdomen and pelvis from November 17, 2024 With right upper lobe and middle lobe airspace disease compatible with pneumonia, left renal abdominal aortic aneurysm. I reviewed urine analysis Continue to follow with you. I discussed with the at the bedside on management plan. Problem List Items Addressed This Visit Other * (Principal) Sepsis (HCC) - Primary I have taken time to review patient's information and having discussions, including discussion on antibiotics management, its side effects, benefits and risk., I appreciate seeing your patient, will continue to follow with you, and adjust with more information. Medical decision making.High. Drug Rx requiring intensive monitoring for toxicity and side effects; Extensive discussion regarding a diagnosis and multiple treatment options. This note is created with the assistance of a speech-recognition program. While intending to generate a document that actually reflects the content of the visit, the document can still have some errors including those of syntax and sound a- like substitutions which may escape proofreading. In such instances, actual meaning can be extrapolated by contextual derivation. [1] Social History Socioeconomic History Marital status: Tobacco Use Smoking status: Former Current packs/day: 0.00 Types: Cigarettes Start date: 1960 Quit date: 2008 Years since quittin.8 Passive exposure: Past Smokeless tobacco: Never Vaping Use Vaping status: Never Used Substance and Sexual Activity Alcohol use: Not Currently Drug use: Not Currently Social Drivers of Health Financial Resource Strain: Low Risk (09/14/2024) Overall Financial Resource Strain (CARDIA) Difficulty of Paying Living Expenses: Not hard at all Food Insecurity: No Food Insecurity (12/16/2024) Hunger Vital Sign Worried About Running Out of Food in the Last Year: Never true Ran Out of Food in the Last Year: Never true Transportation Needs: No Transportation Needs (12/16/2024) PRAPARE - Transportation Lack of Transportation (Medical): No Lack of Transportation (Non-Medical): No Social Connections: Unknown (09/14/2024) Social Connection and Isolation Panel [NHANES] Frequency of Social Gatherings with Friends and Family: Once a week Housing Stability: Low Risk (12/16/2024) Housing Stability Vital Sign Unable to Pay for Housing in the Last Year: No Number of Times Moved in the Last Year: 0 Homeless in the Last Year: No [facility] 12-16-2024 Consult note Associated Order (s): IP CONSULT TO CARE MANAGEMENT Date: 12/16/2024 Time: 10:29 AM Patient Name: Amy Sun Date of : 1950 Reason for Consult: Discharge Plan Discussion: (4929) Barbie (social work academic intern) and Nida (social work academic intern visited patient(pt)'s room; pt's was present. Pt was resting, so consult was conducted with pt's . Pt's reported pt usually only where his oxygen at night while at home, pt has chronic pain in his neck and head(migraines), and pt is Yarsanism. Pt's shared that pt is physically active, as he golfs often and drives himself there. Pt's stated, however she does most of the driving. Pt's reported pt sleeps in a recliner in the basement, so he goes up and down the stairs regularly. Pt's stated pt does not have any current home services and uses [employer] as their medical supply company. Nida told pt's care management will continue to follow pt's progress while he is in the hospital to see if pt may require additional needs. Pt's acknowledged this information. Plan for discharge as of now is for pt to go home with his . Discharge Plan: Plan A: Home Transportation Assessment and Background Information: History of falls in last 6 months:: No Chronic pain:: (!) Yes Advance Directives: Advance Directive: Patient does not have advance directive, would not like information Information Provided on Healthcare Directives: No Patient Support: Does Patient have a PCP?: Yes (Dr. Ulices Clark) Living Arrangements: Spouse/significant other Type of Residence: Multi-level (stairs) Support Systems: Spouse/significant other, Other (Comment) Assistance Needed: no Current Home Equipment: Oxygen Caregiver Assessment: SDOH: Cosigned by Nida Boo LISW at 12/16/2024 11:26 AM EDT Associated attestation - Nida Boo LISW - 12/16/2024 11:26 AM EDT This worker reviewed and is in agreement with charting completed by social work academic intern. Per spouse, patient receives his tube feed supplies through [facility] [place]. Contacted [facility] [place] and spoke with Tamika. Per Tamika, a new order is only needed if tube feeds change at discharge. [facility] 12-16-2024 Note [facility] PROGRESS NOTE Patient name: Amy Sun Date of : 1950 Assessment and plan Amy Sun is a 74 y.o. male patient of Ulices Clark DO with history of asthma, BPH, CKD, COPD, chronic hypoxemic respiratory failure on 2 L nasal cannula, hyperlipidemia, hypertension, migraine, prediabetes, and tongue cancer status postradiation who presented to [facility] on 12/15/2024 with weakness, fever, lethargy. Severe Sepsis, POA Lactic acidemia due to sepsis Leukocytosis Unclear etiology. CXR personally reviewed, and interpreted, showed improved infiltrate from last admission, UA is negative Sputum culture during last admission grew MRSA LA on admission 3.5, improved to 1.1, WBC on admission 24 Continue empirically cefepime and vancomycin, check MRSA, de-escalate as soon as possible Blood cultures NGTD, sputum culture NGTD ID was consulted Elevated troponin, likely demand ischemia Troponin on presentation 26. Denies chest pain. Trend. Likely demand ischemia due to sepsis. EKG personally reviewed did not show any ischemic change COPD Asthma Chronic hypoxemic respiratory failure, baseline 2 L Continue umeclidinium-vilanterol and Roflumilast [LAMA/LABA] DuoNeb as needed Continue ox support, baseline 2 L Pulmonary embolism Continue Eliquis, no need for aspirin Hypertension Hyperlipidemia BPH Hold doxazosin and finasteride due to soft blood pressure. Resume as able. 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 PT and OT evaluation Consult care management for discharge needs Hypernatremia Sodium 147 on presentation. Improved to 145 Discharge planning Medically ready for discharge: no Patient and/or family has been notified they are expected to be medically stable for discharge on the following date: 12/18/2024 Patient requires continued hospitalization due to: Workup for sepsis Discussed with the patient and/or family that the following is a potential discharge location, understanding that the final plan will depend on the patient's progress and shared decision-making: Home The following resources have been ordered to assist with discharge barriers: care management, PT, OT Quality measures DVT prophylaxis: eliquis Serna catheter: absent Code status Full Code Subjective Patient was seen and examined today morning at bedside. No acute overnight events. He is on 2 L chronic NC. At bedside his mentions that the patient was more lethargic and had a fever before coming to the hospital. Patient today is AO x 3, febrile, complaining of cough. Stated much improvement since he came. Discussed with the patient at bedside treatment plan and his and was able to answer all of their questions. Objective BP 98/60 Pulse 60 Temp 97.7 degrees F (36.5 degrees C) (Oral) Resp (!) 19 Ht 6' 1 Wt 77.2 kg (170 lb 3.1 oz) SpO2 96% BMI 22.45 kg/m General appearance: alert; chronically ill appearing; in no acute distress HEENT: Head- normocephalic; Eyes- EOMI, sclera anicteric; Throat- mucous membranes moist Cardiovascular: regular rate and rhythm; normal S1, S2; no murmurs, rubs, clicks or gallops; peripheral edema absent Respiratory: Mild rhonchi at the base of the lungs on nasal cannula Abdomen: soft, non-tender, non-distended Neurological: oriented x 3; normal speech; no focal findings or movement disorder noted Musculoskeletal: no significant deformity or tenderness to palpation Skin: normal coloration Psych: normal mood and affect AUTHENTICATED BY SIVAKUMAR ARIAS ON 12/16/2024 12:12:06 [facility] 12-16-2024 Plan of care note Problem: Actual or potential alteration in health Goal: Absence of healthcare acquired conditions Outcome: Partially Met Goal: Knowledge of Interdisciplinary Plan of Care Outcome: Partially Met Goal: Knowledge of Enviroment Outcome: Partially Met [facility] 12-15-2024 Emergency department Note ED Nurse to Inpatient Nurse Report Chief Complaint Patient presents with Fever Present to Ed from home LOC Alert (+0) Vital Signs Vitals: 12/15/24 2245 12/15/24 2300 12/15/24 23112/15/24 2345 BP: (!) 87/69 (!) 83/75 95/65 90/67 BP Location: Patient Position: Pulse: 67 70 66 66 Resp: (!) 27 15 16 12 Temp: TempSrc: SpO2: 93% 93% 95% 96% Weight: Oxygen Baseline 2L Current needs required 2L LDAs Peripheral IV 12/15/24 Anterior;Right Forearm (Active) Gastrostomy/Enterostomy PEG-jejunostomy Umbilicus (Active) Moblity:poor Swallow Screen completed:No NPO:No Pending Ed Orders none Present Condition serious Family Dynamics good [facility] 12-15-2024 Emergency department Note ED Nurse to Inpatient Nurse Report Chief Complaint Patient presents with Fever Present to Ed from home LOC Alert (+0) Vital Signs Vitals: 12/15/24 2245 12/15/24 2300 12/15/24 2315 12/15/24 2345 BP: (!) 87/69 (!) 83/75 95/65 90/67 BP Location: Patient Position: Pulse: 67 70 66 66 Resp: (!) 27 15 16 12 Temp: TempSrc: SpO2: 93% 93% 95% 96% Weight: Oxygen Baseline 2L Current needs required 2L LDAs Peripheral IV 12/15/24 Anterior;Right Forearm (Active) Gastrostomy/Enterostomy PEG-jejunostomy Umbilicus (Active) Moblity:poor Swallow Screen completed:No NPO:No Pending Ed Orders none Present Condition serious Family Dynamics good Associated Order(s): EKG 12-lead [facility] EMERGENCY DEPARTMENT ATTENDING NOTE: NAME: Amy Sun CSN: [id number] 74 y.o. PCP: Ulices Clark DO History: Chief Complaint: Fever HPI: The history was obtained from the patient. Amy is a 74 y.o. male who presents with a chief complaint of Fever. The patient has a past medical history of tongue cancer status post chemo with feeding tube. Patient currently in remission for several years. He also has a history of COPD, hypertension, hyperlipidemia, recurrent pneumonias presents from home for fever, tachypnea, and hypotension. Patient's states that the patient was recently diagnosed with MRSA from a sputum culture that was performed at his most recent visit and was started on linezolid and Augmentin orally. Despite these medications patient has been having worsening fatigue confusion weakness and lethargy. Patient's states patient has a chronic cough due to mild sputum aspiration but it seems to be worse than normal. PMHx: Past Medical History: Diagnosis Date Arthritis Asthma Benign prostatic hyperplasia Cancer (HCC) 2009 Tongue Chronic kidney disease (CKD) stage G1/A2, glomerular filtration rate (GFR) equal to or greater than 90 mL/min/1.73 square meter and albuminuria creatinine ratio between 30-299 mg/g COPD (chronic obstructive pulmonary disease) (HCC) ED (erectile dysfunction) Edema leg bilateral GERD (gastroesophageal reflux disease) Hepatic steatosis Hyperlipidemia Hypertension Insomnia Lung disorder Migraine without aura and without status migrainosus, not intractable 09/25/2023 Prediabetes PMSx: Past Surgical History: Procedure Laterality Date ABDOMINAL SURGERY CATARACT EXTRACTION BILATERAL W/ ANTERIOR VITRECTOMY CATARACT EXTRACTION BILATERAL W/ ANTERIOR VITRECTOMY Bilateral CT COLONOSCOPY 03/25/2022 CT COLONOSCOPY LAPAROSCOPIC INGUINAL HERNIA REPAIR [address] Holder for tongue cancer PEG TUBE PLACEMENT 04/04/2023 VASECTOMY FAM. Hx: Family History Problem Relation Age of Onset Stroke Father Heart disease Father Coronary artery disease Father Diabetes Sister Coronary artery disease Brother SOC. Hx: Social History [1] MEDs: Previous Medications Medication Sig apixaban (Eliquis) 5 mg Tab 1 (one) tablet (5 mg total) by Per G Tube route 2 (two) times a day . aspirin 81 MG EC tablet 1 (one) tablet (81 mg total) by Other route every morning Per G tube . xixnmvk-hyoqoibsmdjxz-javrqxax (EXCEDRIN MIGRAINE) 250-250-65 mg per tablet 1 (one) tablet by Per G Tube route every 6 (six) hours as needed for pain . cyanocobalamin, vitamin B-12, 2,500 mcg Tab 1 (one) tablet (2,500 mcg total) by Per G Tube route nightly . doxazosin (CARDURA) 4 MG tablet 1 (one) tablet (4 mg total) by Per G Tube route nightly . famotidine (PEPCID) 20 MG tablet 1 (one) tablet (20 mg total) by Per G Tube route 2 (two) times a day . finasteride (PROSCAR) 5 mg tablet 1 (one) tablet (5 mg total) by Per G Tube route nightly . fluticasone propionate (FLONASE) 50 mcg/actuation nasal spray Instill 2 (two) sprays into each nostril daily . guaiFENesin (MUCINEX) 600 mg 12 hr tablet 2 (two) tablets (1,200 mg total) by Other route every 12 (twelve) hours as needed for congestion Per G tube . Lactobacillus rhamnosus GG (CULTURELLE) 10 billion cell capsule 1 (one) capsule by Per G Tube route every morning . propylene glycol/PF (SYSTANE PRO PF OPHT) Administer 1 drop to both eyes as needed . roflumilast (DALIRESP) 500 mcg tablet 1 (one) tablet (500 mcg total) by Per G Tube route daily in the afternoon . sertraline (ZOLOFT) 50 MG tablet Take 1 (one) tablet (50 mg total) by mouth daily . SUMAtriptan (IMITREX) 50 MG tablet Take 1 (one) tablet (50 mg total) by mouth every 2 (two) hours as needed for migraine Max of 200 mg in 24hrs, do not treat more than 3 times a week . umeclidinium-vilanteroL 62.5-25 mcg/actuation DsDv Inhale 1 Inhalation daily . ALL: Allergies[2] ROS: Review of Systems Positives and pertinent negatives as per HPI. All other systems were reviewed and are negative. Physical Exam: Patient Vitals for the past 24 hrs: BP Temp Temp src Pulse Resp SpO2 Weight 12/15/24 2300 (!) 83/75 -- -- 70 15 93 % -- 12/15/24 2245 (!) 87/69 -- -- 67 (!) 27 93 % -- 12/15/24 2145 95/65 -- -- 68 (!) 23 94 % -- 12/15/24 2115 (!) 88/62 -- -- 68 (!) 25 95 % -- 12/15/24 204 (!) 79/63 -- -- 68 (!) 24 96 % -- 12/15/242029 (!) 74/57 -- -- 74 (!) 28 93 % -- 12/15/242014 (!) 80/61 -- -- 81 (!) 34 91 % -- 12/15/242011 (!) 80/61 -- -- 77 (!) 26 93 % -- 12/15/242010 -- -- -- -- -- -- 81.6 kg (180 lb) 12/15/242002 (!) 62/49 97.5 F (36.4 C) Oral 97 16 (!) 85 % -- Physical Exam Vitals and nursing note reviewed. Constitutional: General: He is awake. Appearance: He is ill-appearing and toxic-appearing. HENT: Head: Normocephalic and atraumatic. Nose: Nose normal. Eyes: General: Lids are normal. No scleral icterus. Cardiovascular: Rate and Rhythm: Regular rhythm. Tachycardia present. Heart sounds: Normal heart sounds. No murmur heard. Musculoskeletal: Right lower leg: No swelling. No edema. Left lower leg: No swelling. No edema. Pulmonary: Effort: No accessory muscle usage or respiratory distress. Breath sounds: Rhonchi present. No decreased breath sounds or wheezing. Comments: Tachypnea noted Abdominal: General: There is no distension. Tenderness: There is no abdominal tenderness. Comments: Feeding tube in place surrounding area clean, dry, intact Neurological: Mental Status: He is alert and oriented to person, place, and time. Laboratory & Radiological Imaging (if done): Labs Reviewed LACTIC ACID, PLASMA - Abnormal; Notable for the following components: Result Value Lactic Acid 3.5 (*) All other components within normal limits COMPREHENSIVE METABOLIC PANEL - Abnormal; Notable for the following components: Sodium 147 (*) Glucose 126 (*) BUN 31 (*) BUN/Creatinine Ratio 30.1 (*) All other components within normal limits Narrative: [facility] has implemented the eGFR calculation approach that does not have a coefficient for race that conforms to the NKF-ASN Task Force Recommendations. TROPONIN (ONCE) - Abnormal; Notable for the following components: Troponin T 26 (*) All other components within normal limits POC VENOUS BLOOD GAS PANEL-PULM - RALS - Abnormal; Notable for the following components: Base Excess, Darren 5.7 (*) HCO3, Darren 31.4 (*) Lactic Acid 3.0 (*) O2 Sat, Darren 73.3 (*) Carboxyhemoglobin 2.3 (*) Sodium 150 (*) Glucose 123 (*) All other components within normal limits CBC WITH AUTO DIFFERENTIAL - Abnormal; Notable for the following components: WBC 23.95 (*) Neutrophils Abs 22.31 (*) Lymphocytes Abs 0.40 (*) Monocytes Abs 0.98 (*) All other components within normal limits COVID-19/INFLUENZA A,B MOLECULAR - Normal MRSA DNA AMPLIFIED PROBE - Normal BLOOD CULTURE AEROBIC/ANAEROBIC BLOOD CULTURE AEROBIC/ANAEROBIC OBTAIN VENOUS BLOOD GASES AND PERFORM CBC AND DIFFERENTIAL Narrative: The following orders were created for panel order CBC and Differential. Procedure Abnormality Status --------- ------ CBC Auto Differential[[id number]] Abnormal Final result Please view results for these tests on the individual orders. LACTIC ACID, PLASMA REFLEX LACTIC ACID, PLASMA XR Chest 1 View Final Result 1. Slight but noticeably improved infiltrate in the mid right lung field. 2. Slight bibasilar atelectasis. Workstation ID: [id number] Procedures: EKG 12-lead Date/Time: 12/15/2024 8:15 PM Performed by: Ifeanyi Scott DO Authorized by: Ifeanyi Scott DO Interpreted by ED attending physician Comparison: compared with previous ECG from 06/07/2024 Similar to previous ECG BPM: 81 Comments: Sinus rhythm with PAC 81 bpm Normal interval Normal axis display no obvious evidence of acute ischemia ED Course / Medical Decision Making: I did personally review Amy's past medical history, surgical history, social history, as well as family history (when relevant). In this case, I also oversaw the his drug management by reviewing his medication list, allergy list, as well as the medications that I prescribed during the ED course and/or recommended as an out-patient (including possible OTC medications such as acetaminophen, NSAIDs , etc). 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 Oropharyngeal dysphagia 08/09/2022 Hypertension 09/25/2023 Gastroesophageal reflux disease 09/25/2023 Hyperlipidemia 09/25/2023 Secondary polycythemia 09/15/2014 Bilateral leg edema 09/25/2023 Centrilobular emphysema (HCC) 06/04/2023 Degenerative joint disease 09/25/2023 Benign prostatic hyperplasia with lower urinary tract symptoms 07/31/2016 S/P percutaneous endoscopic gastrostomy (PEG) tube placement (HCC) 09/25/2023 Anxiety and depression 09/25/2023 Migraine without aura and without status migrainosus, not intractable 09/25/2023 AAA (abdominal aortic aneurysm) 11/19/2023 Postnasal drip 11/22/2023 Hyponatremia 11/22/2023 Difficulty sleeping 11/22/2023 Left inguinal hernia 12/17/2023 Constipation 12/17/2023 Venous insufficiency 12/18/2023 Pulmonary embolus, right 12/22/2023 Pulmonary lesion, right 01/13/2024 History of aspiration pneumonia 06/20/2024 Chronic respiratory failure with hypoxia, on home oxygen therapy (HCC) 12/31/2023 Acute conjunctivitis of left eye 09/18/2024 Respiratory crackles of both lungs 09/18/2024 Memory loss 11/16/2024 Septic shock (HCC) 11/17/2024 Resolved Ambulatory Problems Diagnosis Date Noted Chronic obstructive pulmonary disease (HCC) 09/25/2023 Edema of lower extremity 09/25/2023 Vomiting 10/23/2023 Acute hypoxemic respiratory failure (HCC) 06/07/2024 Past Medical History: Diagnosis Date Arthritis Asthma Benign prostatic hyperplasia Cancer (HCC) 2008 Chronic kidney disease (CKD) stage G1/A2, glomerular filtration rate (GFR) equal to or greater than 90 mL/min/1.73 square meter and albuminuria creatinine ratio between 30-299 mg/g COPD (chronic obstructive pulmonary disease) (HCC) ED (erectile dysfunction) Edema leg GERD (gastroesophageal reflux disease) Hepatic steatosis Insomnia Lung disorder Prediabetes ED MEDICATIONS GIVEN: Medications sodium chloride (PF) (NS) flush 5 mL (has no administration in time range) And sodium chloride 0.9% (NS) (has no administration in time range) sodium chloride (PF) (NS) flush 5 mL (has no administration in time range) And sodium chloride 0.9% (NS) (has no administration in time range) lactated ringers bolus 2,448 mL (2,448 mL Intravenous New Bag 12/15/242024) vancomycin (VANCOCIN) 2000 mg in sodium chloride 0.9% 500 mL IVPB (0 mg Intravenous Stopped 12/15/240) After reviewing the items above, I did look at previous medical documentation, such as recent hospitalizations, office visits, and/or recent consultations with PCP/specialist. SDOH: Another factor that I considered in Amy's care was his Social Determinants of Health (SDOH). During this ED encounter, he DID have issues that complicated the ED care today which included cognitive impairment (dementia, alzheimer's, etc). LAB TESTING: Ancillary lab testing: CBC, BMP, liver panel, troponin x 2, NT Pro-BNP, lactic acid, urinalysis, urine culture, blood cultures RADIOLOGY: I did consider radiological studies for Amy's care today: portable CXR, DIFFERENTIAL DIAGNOSES: Sepsis, bacteremia, pneumonia, UTI, cellulitis, infectious source unknown ED Course: The history was obtained from the patient. Amy is a 74 y.o. male who presents with a chief complaint of Fever. The patient has a past medical history of tongue cancer status post chemo with feeding tube. Patient currently in remission for several years. He also has a history of COPD, hypertension, hyperlipidemia, recurrent pneumonias presents from home for fever, tachypnea, and hypotension The patient presentation consistent with sepsis as patient has SIRS criteria with likely source of infection. Patient received IV fluids, IV antibiotics, blood cultures lactic acid were obtained. IV fluids contributed clinical improvement in the patient's sepsis. Chest x-ray performed was notable for likely minor infiltrate and given the patient's recent sputum culture that was positive for MRSA I did cover the patient for MRSA pneumonia. Patient will be admitted to hospital service for further evaluation and treatment of sepsis. Patient will be admitted to hospitalist service for further evaluation and treatment of infection. Critical Care Time: I personally saw this patient and independently provided 40 minutes of non-concurrent, critical care time, out of the total shared critical care time provided. This was due to my concern for respiratory distress and sepsis. Please see my MDM section of my ED note, for further details and management. In addition, this was independent and exclusive of separate billable procedures. Clinical Impression: 1. Sepsis, due to unspecified organism, unspecified whether acute organ dysfunction present (HCC) Disposition: ED Disposition ED Disposition Hospitalize Condition -- Comment Phone call required?: No Ifeanyi Scott DO ED Attending Physician [facility] EMERGENCY DEPARTMENT [1] Social History Socioeconomic History Marital status: Tobacco Use Smoking status: Former Current packs/day: 0.00 Types: Cigarettes Start date: 1960 Quit date: 2008 Years since quittin.8 Passive exposure: Past Smokeless tobacco: Never Vaping Use Vaping status: Never Used Substance and Sexual Activity Alcohol use: Not Currently Drug use: Not Currently Social Drivers of Health Financial Resource Strain: Low Risk (09/14/2024) Overall Financial Resource Strain (CARDIA) Difficulty of Paying Living Expenses: Not hard at all Food Insecurity: No Food Insecurity (11/18/2024) Hunger Vital Sign Worried About Running Out of Food in the Last Year: Never true Ran Out of Food in the Last Year: Never true Transportation Needs: No Transportation Needs (11/18/2024) PRAPARE - Transportation Lack of Transportation (Medical): No Lack of Transportation (Non-Medical): No Social Connections: Unknown (09/14/2024) Social Connection and Isolation Panel [NHANES] Frequency of Social Gatherings with Friends and Family: Once a week Housing Stability: Low Risk (11/18/2024) Housing Stability Vital Sign Unable to Pay for Housing in the Last Year: No Number of Times Moved in the Last Year: 1 Homeless in the Last Year: No [2] Allergies Allergen Reactions Budesonide Anaphylaxis Throat constriction Revefenacin Anaphylaxis Throat constriction Ipratropium-Albuterol Other (See Comments) Right side of face gets numb Ifeanyi Scott DO 12/15/24 230 states patient wears 2l NC at home. Patient placed on oxygen at this time. Patient arrives with . Per patient started spiking fevers ib the 100s starting early today. Patient received tylenol at 6pm. Sepsis alert called upon arrival. Patient placed on 2 L NC and sepsis alert called at this time. Bed: 12 Expected date: 12/15/24 Expected time: Means of arrival: Comments: tr2 documented in this encounter [facility] 12-15-2024 History and physical note [facility] HISTORY AND PHYSICAL -- [facility] Patient name: Amy Sun Date of : 1950 Admission date: 12/15/2024 Physicians: Ulices Clark DO (Family); No ref. provider found (Referring) Amy Sun is a 74 y.o. male patient of Amber, Ulices R., DO with history of asthma, BPH, CKD, COPD, chronic hypoxemic respiratory failure on 2 L nasal cannula, hyperlipidemia, hypertension, migraine, prediabetes, and tongue cancer status postradiation who presented to [facility] on 12/15/2024 with weakness, fever, lethargy. Severe Sepsis Lactic acidemia due to sepsis Present on admission: yes Etiology: Unclear etiology. X-ray of the chest reviewed with improved infiltrates compared to previous imaging. The patient was admitted few weeks ago with pneumonia. The sputum culture during that admission grew MRSA. He was discharged on linezolid and Augmentin. SIRS criteria: Respiratory rate greater than 20 or PACO2 less than 32mmHg, WBC greater than 12,000, less than 4,000, or greater than 10% bands Evidence of end organ dysfunction: SBP less than 90 or MAP less than 65 or SBP drop greater than 40mmHg, Lactic acid greater than 2.0 Initial lactic acid: 3.5 Repeat lactic acid: Pending Current antibiotic regimen: Vancomycin and cefepime Culture data: Blood cultures collected, urine culture ordered. COVID and influenza negative. MRSA probe ordered. Vasopressors/steroids: none Initial sepsis checklist: Lactate ordered [x] Blood cultures obtained [x] Antibiotics initiated [x] 30 cc/kg IV fluids given Repeat volume status and tissue perfusion assessment performed [x] I performed a sepsis reassessment on the patient 12/15/2024 11:21 PM Vital Signs: BP 95/65 Pulse 66 Temp 97.5 F (36.4 C) (Oral) Resp 16 Wt 81.6 kg (180 lb) SpO2 95% BMI 23.75 kg/m Cardiac examination significant for: Regular rate and rhythm Pulmonary examination significant for: Clear lung chen Capillary refill is: Brisk Peripheral Pulse is: 2+ Skin is: Normal Hypernatremia Sodium 147 on presentation. Monitor. Elevated troponin Troponin on presentation 26. Denies chest pain. Trend. Likely demand ischemia due to sepsis. COPD Asthma Chronic hypoxemic respiratory failure, baseline 2 L Continue umeclidinium-vilanterol and Roflumilast Pulmonary embolism Continue Eliquis Hypertension Hyperlipidemia BPH Hold doxazosin and finasteride due to soft blood pressure. Resume as able. 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 PT and OT evaluation Consult care management for discharge needs Admitted with the following risk variables: None. Residence prior to admission: house or apartment Quality measures DVT prophylaxis: eliquis Serna catheter: absent Medication reconciliation: verified Patient and/or family has been told expected day of discharge is: 2-3 days Potential social barriers to discharge include: mobility issues Code status Full Code; code status verified on 12/15/2024 with patient (capacity intact) Chief complaint Weakness, lethargy, fever History of present illness Amy Sun is a 74 y.o. male patient of Ulices Clark DO with history of asthma, BPH, CKD, COPD, chronic hypoxemic respiratory failure on 2 L nasal cannula, hyperlipidemia, hypertension, migraine, prediabetes, and tongue cancer status postradiation who presented to [facility] on 12/15/2024 with weakness, fever, lethargy. The patient was admitted to the hospital about 4 weeks ago and found to have pneumonia. The sputum grew MRSA. He was discharged on linezolid and Augmentin. He completed the medications but has been gradually getting weaker. The reports fever at home. The states that he was not able to get up today without help. This prompted her to bring him to the ED. I evaluated the patient in the ED. He denies chest pain or shortness of breath. Reports weakness and subjective fever. No changes in bowel habits or urinary symptoms. The patient met SIRS criteria in the ED and started on sepsis care. I discussed the plan with the patient and the . I answered all their questions. I also discussed the CODE STATUS with the patient and he elected full code. Past medical history Past Medical History: Diagnosis Date Arthritis Asthma Benign prostatic hyperplasia Cancer (HCC) 2009 Tongue Chronic kidney disease (CKD) stage G1/A2, glomerular filtration rate (GFR) equal to or greater than 90 mL/min/1.73 square meter and albuminuria creatinine ratio between 30-299 mg/g COPD (chronic obstructive pulmonary disease) (HCC) ED (erectile dysfunction) Edema leg bilateral GERD (gastroesophageal reflux disease) Hepatic steatosis Hyperlipidemia Hypertension Insomnia Lung disorder Migraine without aura and without status migrainosus, not intractable 09/25/2023 Prediabetes Past surgical history Past Surgical History: Procedure Laterality Date ABDOMINAL SURGERY CATARACT EXTRACTION BILATERAL W/ ANTERIOR VITRECTOMY CATARACT EXTRACTION BILATERAL W/ ANTERIOR VITRECTOMY Bilateral CT COLONOSCOPY 03/25/2022 CT COLONOSCOPY LAPAROSCOPIC INGUINAL HERNIA REPAIR [address] Holder for tongue cancer PEG TUBE PLACEMENT 04/04/2023 VASECTOMY Family history Family History Problem Relation Age of Onset Stroke Father Heart disease Father Coronary artery disease Father Diabetes Sister Coronary artery disease Brother Social history Tobacco Use History[1] Social History Substance and Sexual Activity Alcohol Use Not Currently Social History Substance and Sexual Activity Drug Use Not Currently Allergy information I have reviewed the patient's allergies. Budesonide, Revefenacin, and Ipratropium-albuterol Home medications Home medications were reviewed. Review of systems All relevant systems have been reviewed and are negative except as noted in HPI or below Physical examination BP (!) 83/75 Pulse 70 Temp 97.5 F (36.4 C) (Oral) Resp 15 Wt 81.6 kg (180 lb) SpO2 93% BMI 23.75 kg/m General appearance: alert; well appearing; in no acute distress HEENT: Head- normocephalic; Eyes- EOMI, sclera anicteric; mucous membranes moist Cardiovascular: regular rate and rhythm; normal S1, S2; no murmurs, rubs, clicks or gallops; peripheral edema absent Respiratory: lungs clear to auscultation; without wheezes, rales or rhonchi; on nasal cannula Abdomen: soft, non-tender, non-distended Neurological: oriented x 3; normal speech; no focal findings or movement disorder noted Musculoskeletal: no significant deformity or tenderness to palpation Skin: normal coloration Psych: normal mood and affect [1] Social History Tobacco Use Smoking Status Former Current packs/day: 0.00 Types: Cigarettes Start date: 1960 Quit date: 2008 Years since quittin.8 Passive exposure: Past Smokeless Tobacco Never [facility] 12-15-2024 Note [facility] Patient name: Amy Sun Date of : 1950 Admission date: 12/15/2024 Physicians: Ulices Clark DO (Family); No ref. provider found (Referring) Amy Sun is a 74 y.o. male patient of Ulices Clark DO with history of asthma, BPH, CKD, COPD, chronic hypoxemic respiratory failure on 2 L nasal cannula, hyperlipidemia, hypertension, migraine, prediabetes, and tongue cancer status postradiation who presented to [facility] on 12/15/2024 with weakness, fever, lethargy. Severe Sepsis Lactic acidemia due to sepsis Present on admission: yes Etiology: Unclear etiology. X-ray of the chest reviewed with improved infiltrates compared to previous imaging. The patient was admitted few weeks ago with pneumonia. The sputum culture during that admission grew MRSA. He was discharged on linezolid and Augmentin. SIRS criteria: Respiratory rate greater than 20 or PACO2 less than 32mmHg, WBC greater than 12,000, less than 4,000, or greater than 10% bands Evidence of end organ dysfunction: SBP less than 90 or MAP less than 65 or SBP drop greater than 40mmHg, Lactic acid greater than 2.0 Initial lactic acid: 3.5 Repeat lactic acid: Pending Current antibiotic regimen: Vancomycin and cefepime Culture data: Blood cultures collected, urine culture ordered. COVID and influenza negative. MRSA probe ordered. Vasopressors/steroids: none Initial sepsis checklist: Lactate ordered [x] Blood cultures obtained [x] Antibiotics initiated [x] 30 cc/kg IV fluids given Repeat volume status and tissue perfusion assessment performed [x] I performed a sepsis reassessment on the patient 12/15/2024 11:21 PM Vital Signs: BP 95/65 Pulse 66 Temp 97.5 degrees F (36.4 degrees C) (Oral) Resp 16 Wt 81.6 kg (180 lb) SpO2 95% BMI 23.75 kg/m Cardiac examination significant for: Regular rate and rhythm Pulmonary examination significant for: Clear lung chen Capillary refill is: Brisk Peripheral Pulse is: 2+ Skin is: Normal Hypernatremia Sodium 147 on presentation. Monitor. Elevated troponin Troponin on presentation 26. Denies chest pain. Trend. Likely demand ischemia due to sepsis. COPD Asthma Chronic hypoxemic respiratory failure, baseline 2 L Continue umeclidinium-vilanterol and Roflumilast Pulmonary embolism Continue Eliquis Hypertension Hyperlipidemia BPH Hold doxazosin and finasteride due to soft blood pressure. Resume as able. 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 PT and OT evaluation Consult care management for discharge needs Admitted with the following risk variables: None. Residence prior to admission: house or apartment Quality measures DVT prophylaxis: eliquis Serna catheter: absent Medication reconciliation: verified Patient and/or family has been told expected day of discharge is: 2-3 days Potential social barriers to discharge include: mobility issues Code status Full Code; code status verified on 12/15/2024 with patient (capacity intact) Chief complaint Weakness, lethargy, fever History of present illness Amy Sun is a 74 y.o. male patient of Ulices Clark DO with history of asthma, BPH, CKD, COPD, chronic hypoxemic respiratory failure on 2 L nasal cannula, hyperlipidemia, hypertension, migraine, prediabetes, and tongue cancer status postradiation who presented to [facility] on 12/15/2024 with weakness, fever, lethargy. The patient was admitted to the hospital about 4 weeks ago and found to have pneumonia. The sputum grew MRSA. He was discharged on linezolid and Augmentin. He completed the medications but has been gradually getting weaker. The reports fever at home. The states that he was not able to get up today without help. This prompted her to bring him to the ED. I evaluated the patient in the ED. He denies chest pain or shortness of breath. Reports weakness and subjective fever. No changes in bowel habits or urinary symptoms. The patient met SIRS criteria in the ED and started on sepsis care. I discussed the plan with the patient and the . I answered all their questions. I also discussed the CODE STATUS with the patient and he elected full code. Past medical history 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 Chronic kidney disease (CKD) stage G1/A2, glomerular filtration rate (GFR) equal to or greater than 90 mL/min/1.73 square meter and albuminuria creatinine ratio between 30-299 mg/g COPD (chronic obs (more content not included)... [facility] 12-15-2024 History and physical note [facility] HISTORY AND PHYSICAL -- [facility] Patient name: Amy Sun Date of : 1950 Admission date: 12/15/2024 Physicians: Ulices Clark DO (Family); No ref. provider found (Referring) Amy Sun is a 74 y.o. male patient of Ulices Clark DO with history of asthma, BPH, CKD, COPD, chronic hypoxemic respiratory failure on 2 L nasal cannula, hyperlipidemia, hypertension, migraine, prediabetes, and tongue cancer status postradiation who presented to [facility] on 12/15/2024 with weakness, fever, lethargy. Severe Sepsis Lactic acidemia due to sepsis Present on admission: yes Etiology: Unclear etiology. X-ray of the chest reviewed with improved infiltrates compared to previous imaging. The patient was admitted few weeks ago with pneumonia. The sputum culture during that admission grew MRSA. He was discharged on linezolid and Augmentin. SIRS criteria: Respiratory rate greater than 20 or PACO2 less than 32mmHg, WBC greater than 12,000, less than 4,000, or greater than 10% bands Evidence of end organ dysfunction: SBP less than 90 or MAP less than 65 or SBP drop greater than 40mmHg, Lactic acid greater than 2.0 Initial lactic acid: 3.5 Repeat lactic acid: Pending Current antibiotic regimen: Vancomycin and cefepime Culture data: Blood cultures collected, urine culture ordered. COVID and influenza negative. MRSA probe ordered. Vasopressors/steroids: none Initial sepsis checklist: Lactate ordered [x] Blood cultures obtained [x] Antibiotics initiated [x] 30 cc/kg IV fluids given Repeat volume status and tissue perfusion assessment performed [x] I performed a sepsis reassessment on the patient 12/15/2024 11:21 PM Vital Signs: BP 95/65 Pulse 66 Temp 97.5 F (36.4 C) (Oral) Resp 16 Wt 81.6 kg (180 lb) SpO2 95% BMI 23.75 kg/m Cardiac examination significant for: Regular rate and rhythm Pulmonary examination significant for: Clear lung chen Capillary refill is: Brisk Peripheral Pulse is: 2+ Skin is: Normal Hypernatremia Sodium 147 on presentation. Monitor. Elevated troponin Troponin on presentation 26. Denies chest pain. Trend. Likely demand ischemia due to sepsis. COPD Asthma Chronic hypoxemic respiratory failure, baseline 2 L Continue umeclidinium-vilanterol and Roflumilast Pulmonary embolism Continue Eliquis Hypertension Hyperlipidemia BPH Hold doxazosin and finasteride due to soft blood pressure. Resume as able. 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 PT and OT evaluation Consult care management for discharge needs Admitted with the following risk variables: None. Residence prior to admission: house or apartment Quality measures DVT prophylaxis: eliquis Serna catheter: absent Medication reconciliation: verified Patient and/or family has been told expected day of discharge is: 2-3 days Potential social barriers to discharge include: mobility issues Code status Full Code; code status verified on 12/15/2024 with patient (capacity intact) Chief complaint Weakness, lethargy, fever History of present illness Amy Sun is a 74 y.o. male patient of Ulices Clark DO with history of asthma, BPH, CKD, COPD, chronic hypoxemic respiratory failure on 2 L nasal cannula, hyperlipidemia, hypertension, migraine, prediabetes, and tongue cancer status postradiation who presented to [facility] on 12/15/2024 with weakness, fever, lethargy. The patient was admitted to the hospital about 4 weeks ago and found to have pneumonia. The sputum grew MRSA. He was discharged on linezolid and Augmentin. He completed the medications but has been gradually getting weaker. The reports fever at home. The states that he was not able to get up today without help. This prompted her to bring him to the ED. I evaluated the patient in the ED. He denies chest pain or shortness of breath. Reports weakness and subjective fever. No changes in bowel habits or urinary symptoms. The patient met SIRS criteria in the ED and started on sepsis care. I discussed the plan with the patient and the . I answered all their questions. I also discussed the CODE STATUS with the patient and he elected full code. Past medical history 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 Chronic kidney disease (CKD) stage G1/A2, glomerular filtration rate (GFR) equal to or greater than 90 mL/min/1.73 square meter and albuminuria creatinine ratio between 30-299 mg/g COPD (chronic obstructive pulmonary disease) (HCC) ED (erectile dysfunction) Edema leg bilateral GERD (gastroesophageal reflux disease) Hepatic steatosis Hyperlipidemia Hypertension Insomnia Lung disorder Migraine without aura and without status migrainosus, not intractable 09/25/2023 Prediabetes Past surgical history Past Surgical History: Procedure Laterality Date ABDOMINAL SURGERY CATARACT EXTRACTION BILATERAL W/ ANTERIOR VITRECTOMY CATARACT EXTRACTION BILATERAL W/ ANTERIOR VITRECTOMY Bilateral CT COLONOSCOPY 03/25/2022 CT COLONOSCOPY LAPAROSCOPIC INGUINAL HERNIA REPAIR [address] Holder for tongue cancer PEG TUBE PLACEMENT 04/04/2023 VASECTOMY Family history Family History Problem Relation Age of Onset Stroke Father Heart disease Father Coronary artery disease Father Diabetes Sister Coronary artery disease Brother Social history Tobacco Use History[1] Social History Substance and Sexual Activity Alcohol Use Not Currently Social History Substance and Sexual Activity Drug Use Not Currently Allergy information I have reviewed the patient's allergies. Budesonide, Revefenacin, and Ipratropium-albuterol Home medications Home medications were reviewed. Review of systems All relevant systems have been reviewed and are negative except as noted in HPI or below Physical examination BP (!) 83/75 Pulse 70 Temp 97.5 F (36.4 C) (Oral) Resp 15 Wt 81.6 kg (180 lb) SpO2 93% BMI 23.75 kg/m General appearance: alert; well appearing; in no acute distress HEENT: Head- normocephalic; Eyes- EOMI, sclera anicteric; mucous membranes moist Cardiovascular: regular rate and rhythm; normal S1, S2; no murmurs, rubs, clicks or gallops; peripheral edema absent Respiratory: lungs clear to auscultation; without wheezes, rales or rhonchi; on nasal cannula Abdomen: soft, non-tender, non-distended Neurological: oriented x 3; normal speech; no focal findings or movement disorder noted Musculoskeletal: no significant deformity or tenderness to palpation Skin: normal coloration Psych: normal mood and affect [1] Social History Tobacco Use Smoking Status Former Current packs/day: 0.00 Types: Cigarettes Start date: 1960 Quit date: 2008 Years since quittin.8 Passive exposure: Past Smokeless Tobacco Never documented in this encounter [facility] 12-15-2024 Physician Emergency department Note Associated Order(s): EKG 12-lead [facility] EMERGENCY DEPARTMENT ATTENDING NOTE: NAME: Amy Sun CSN: [id number] 74 y.o. PCP: Ulices Clark DO History: Chief Complaint: Fever HPI: The history was obtained from the patient. Amy is a 74 y.o. male who presents with a chief complaint of Fever. The patient has a past medical history of tongue cancer status post chemo with feeding tube. Patient currently in remission for several years. He also has a history of COPD, hypertension, hyperlipidemia, recurrent pneumonias presents from home for fever, tachypnea, and hypotension. Patient's states that the patient was recently diagnosed with MRSA from a sputum culture that was performed at his most recent visit and was started on linezolid and Augmentin orally. Despite these medications patient has been having worsening fatigue confusion weakness and lethargy. Patient's states patient has a chronic cough due to mild sputum aspiration but it seems to be worse than normal. PMHx: 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 Chronic kidney disease (CKD) stage G1/A2, glomerular filtration rate (GFR) equal to or greater than 90 mL/min/1.73 square meter and albuminuria creatinine ratio between 30-299 mg/g COPD (chronic obstructive pulmonary disease) (HCC) ED (erectile dysfunction) Edema leg bilateral GERD (gastroesophageal reflux disease) Hepatic steatosis Hyperlipidemia Hypertension Insomnia Lung disorder Migraine without aura and without status migrainosus, not intractable 09/25/2023 Prediabetes PMSx: Past Surgical History: Procedure Laterality Date ABDOMINAL SURGERY CATARACT EXTRACTION BILATERAL W/ ANTERIOR VITRECTOMY CATARACT EXTRACTION BILATERAL W/ ANTERIOR VITRECTOMY Bilateral CT COLONOSCOPY 03/25/2022 CT COLONOSCOPY LAPAROSCOPIC INGUINAL HERNIA REPAIR [address] Holder for tongue cancer PEG TUBE PLACEMENT 04/04/2023 VASECTOMY FAM. Hx: Family History Problem Relation Age of Onset Stroke Father Heart disease Father Coronary artery disease Father Diabetes Sister Coronary artery disease Brother SOC. Hx: Social History [1] MEDs: Previous Medications Medication Sig apixaban (Eliquis) 5 mg Tab 1 (one) tablet (5 mg total) by Per G Tube route 2 (two) times a day . aspirin 81 MG EC tablet 1 (one) tablet (81 mg total) by Other route every morning Per G tube . gztwzgd-onjhavfxcaswc-vkrnuquy (EXCEDRIN MIGRAINE) 250-250-65 mg per tablet 1 (one) tablet by Per G Tube route every 6 (six) hours as needed for pain . cyanocobalamin, vitamin B-12, 2,500 mcg Tab 1 (one) tablet (2,500 mcg total) by Per G Tube route nightly . doxazosin (CARDURA) 4 MG tablet 1 (one) tablet (4 mg total) by Per G Tube route nightly . famotidine (PEPCID) 20 MG tablet 1 (one) tablet (20 mg total) by Per G Tube route 2 (two) times a day . finasteride (PROSCAR) 5 mg tablet 1 (one) tablet (5 mg total) by Per G Tube route nightly . fluticasone propionate (FLONASE) 50 mcg/actuation nasal spray Instill 2 (two) sprays into each nostril daily . guaiFENesin (MUCINEX) 600 mg 12 hr tablet 2 (two) tablets (1,200 mg total) by Other route every 12 (twelve) hours as needed for congestion Per G tube . Lactobacillus rhamnosus GG (CULTURELLE) 10 billion cell capsule 1 (one) capsule by Per G Tube route every morning . propylene glycol/PF (SYSTANE PRO PF OPHT) Administer 1 drop to both eyes as needed . roflumilast (DALIRESP) 500 mcg tablet 1 (one) tablet (500 mcg total) by Per G Tube route daily in the afternoon . sertraline (ZOLOFT) 50 MG tablet Take 1 (one) tablet (50 mg total) by mouth daily . SUMAtriptan (IMITREX) 50 MG tablet Take 1 (one) tablet (50 mg total) by mouth every 2 (two) hours as needed for migraine Max of 200 mg in 24hrs, do not treat more than 3 times a week . umeclidinium-vilanteroL 62.5-25 mcg/actuation DsDv Inhale 1 Inhalation daily . ALL: Allergies[2] ROS: Review of Systems Positives and pertinent negatives as per HPI. All other systems were reviewed and are negative. Physical Exam: Patient Vitals for the past 24 hrs: BP Temp Temp src Pulse Resp SpO2 Weight 12/15/24 2300 (!) 83/75 -- -- 70 15 93 % -- 12/15/24 2245 (!) 87/69 -- -- 67 (!) 27 93 % -- 12/15/24 2145 95/65 -- -- 68 (!) 23 94 % -- 12/15/242114 (!) 88/62 -- -- 68 (!) 25 95 % -- 12/15/242044 (!) 79/63 -- -- 68 (!) 24 96 % -- 12/15/242029 (!) 74/57 -- -- 74 (!) 28 93 % -- 12/15/242014 (!) 80/61 -- -- 81 (!) 34 91 % -- 12/15/242011 (!) 80/61 -- -- 77 (!) 26 93 % -- 12/15/242010 -- -- -- -- -- -- 81.6 kg (180 lb) 12/15/242002 (!) 62/49 97.5 F (36.4 C) Oral 97 16 (!) 85 % -- Physical Exam Vitals and nursing note reviewed. Constitutional: General: He is awake. Appearance: He is ill-appearing and toxic-appearing. HENT: Head: Normocephalic and atraumatic. Nose: Nose normal. Eyes: General: Lids are normal. No scleral icterus. Cardiovascular: Rate and Rhythm: Regular rhythm. Tachycardia present. Heart sounds: Normal heart sounds. No murmur heard. Musculoskeletal: Right lower leg: No swelling. No edema. Left lower leg: No swelling. No edema. Pulmonary: Effort: No accessory muscle usage or respiratory distress. Breath sounds: Rhonchi present. No decreased breath sounds or wheezing. Comments: Tachypnea noted Abdominal: General: There is no distension. Tenderness: There is no abdominal tenderness. Comments: Feeding tube in place surrounding area clean, dry, intact Neurological: Mental Status: He is alert and oriented to person, place, and time. Laboratory & Radiological Imaging (if done): Labs Reviewed LACTIC ACID, PLASMA - Abnormal; Notable for the following components: Result Value Lactic Acid 3.5 (*) All other components within normal limits COMPREHENSIVE METABOLIC PANEL - Abnormal; Notable for the following components: Sodium 147 (*) Glucose 126 (*) BUN 31 (*) BUN/Creatinine Ratio 30.1 (*) All other components within normal limits Narrative: [facility] has implemented the eGFR calculation approach that does not have a coefficient for race that conforms to the NKF-ASN Task Force Recommendations. TROPONIN (ONCE) - Abnormal; Notable for the following components: Troponin T 26 (*) All other components within normal limits POC VENOUS BLOOD GAS PANEL-PULM - RALS - Abnormal; Notable for the following components: Base Excess, Darren 5.7 (*) HCO3, Darren 31.4 (*) Lactic Acid 3.0 (*) O2 Sat, Darren 73.3 (*) Carboxyhemoglobin 2.3 (*) Sodium 150 (*) Glucose 123 (*) All other components within normal limits CBC WITH AUTO DIFFERENTIAL - Abnormal; Notable for the following components: WBC 23.95 (*) Neutrophils Abs 22.31 (*) Lymphocytes Abs 0.40 (*) Monocytes Abs 0.98 (*) All other components within normal limits COVID-19/INFLUENZA A,B MOLECULAR - Normal MRSA DNA AMPLIFIED PROBE - Normal BLOOD CULTURE AEROBIC/ANAEROBIC BLOOD CULTURE AEROBIC/ANAEROBIC OBTAIN VENOUS BLOOD GASES AND PERFORM CBC AND DIFFERENTIAL Narrative: The following orders were created for panel order CBC and Differential. Procedure Abnormality Status --------- ------ CBC Auto Differential[[id number]] Abnormal Final result Please view results for these tests on the individual orders. LACTIC ACID, PLASMA REFLEX LACTIC ACID, PLASMA XR Chest 1 View Final Result 1. Slight but noticeably improved infiltrate in the mid right lung field. 2. Slight bibasilar atelectasis. Workstation ID: [id number] Procedures: EKG 12-lead Date/Time: 12/15/2024 8:15 PM Performed by: Ifeanyi Scott DO Authorized by: Ifeanyi Scott DO Interpreted by ED attending physician Comparison: compared with previous ECG from 06/07/2024 Similar to previous ECG BPM: 81 Comments: Sinus rhythm with PAC 81 bpm Normal interval Normal axis display no obvious evidence of acute ischemia ED Course / Medical Decision Making: I did personally review Amy's past medical history, surgical history, social history, as well as family history (when relevant). In this case, I also oversaw the his drug management by reviewing his medication list, allergy list, as well as the medications that I prescribed during the ED course and/or recommended as an out-patient (including possible OTC medications such as acetaminophen, NSAIDs , etc). 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 Oropharyngeal dysphagia 08/09/2022 Hypertension 09/25/2023 Gastroesophageal reflux disease 09/25/2023 Hyperlipidemia 09/25/2023 Secondary polycythemia 09/15/2014 Bilateral leg edema 09/25/2023 Centrilobular emphysema (HCC) 06/04/2023 Degenerative joint disease 09/25/2023 Benign prostatic hyperplasia with lower urinary tract symptoms 07/31/2016 S/P percutaneous endoscopic gastrostomy (PEG) tube placement ([facility]) 09/25/2023 Anxiety and depression 09/25/2023 Migraine without aura and without status migrainosus, not intractable 09/25/2023 AAA (abdominal aortic aneurysm) 11/19/2023 Postnasal drip 11/22/2023 Hyponatremia 11/22/2023 Difficulty sleeping 11/22/2023 Left inguinal hernia 12/17/2023 Constipation 12/17/2023 Venous insufficiency 12/18/2023 Pulmonary embolus, right 12/22/2023 Pulmonary lesion, right 01/13/2024 History of aspiration pneumonia 06/20/2024 Chronic respiratory failure with hypoxia, on home oxygen therapy ([facility]) 12/31/2023 Acute conjunctivitis of left eye 09/18/2024 Respiratory crackles of both lungs 09/18/2024 Memory loss 11/16/2024 Septic shock ([facility]) 11/17/2024 Resolved Ambulatory Problems Diagnosis Date Noted Chronic obstructive pulmonary disease (HCC) 09/25/2023 Edema of lower extremity 09/25/2023 Vomiting 10/23/2023 Acute hypoxemic respiratory failure ([facility]) 06/07/2024 Past Medical History: Diagnosis Date Arthritis Asthma Benign prostatic hyperplasia Cancer (HCC) 2008 Chronic kidney disease (CKD) stage G1/A2, glomerular filtration rate (GFR) equal to or greater than 90 mL/min/1.73 square meter and albuminuria creatinine ratio between 30-299 mg/g COPD (chronic obstructive pulmonary disease) (HCC) ED (erectile dysfunction) Edema leg GERD (gastroesophageal reflux disease) Hepatic steatosis Insomnia Lung disorder Prediabetes ED MEDICATIONS GIVEN: Medications sodium chloride (PF) (NS) flush 5 mL (has no administration in time range) And sodium chloride 0.9% (NS) (has no administration in time range) sodium chloride (PF) (NS) flush 5 mL (has no administration in time range) And sodium chloride 0.9% (NS) (has no administration in time range) lactated ringers bolus 2,448 mL (2,448 mL Intravenous New Bag 12/15/242024) vancomycin (VANCOCIN) 2000 mg in sodium chloride 0.9% 500 mL IVPB (0 mg Intravenous Stopped 12/15/242299) After reviewing the items above, I did look at previous medical documentation, such as recent hospitalizations, office visits, and/or recent consultations with PCP/specialist. SDOH: Another factor that I considered in Amy's care was his Social Determinants of Health (SDOH). During this ED encounter, he DID have issues that complicated the ED care today which included cognitive impairment (dementia, alzheimer's, etc). LAB TESTING: Ancillary lab testing: CBC, BMP, liver panel, troponin x 2, NT Pro-BNP, lactic acid, urinalysis, urine culture, blood cultures RADIOLOGY: I did consider radiological studies for Amy's care today: portable CXR, DIFFERENTIAL DIAGNOSES: Sepsis, bacteremia, pneumonia, UTI, cellulitis, infectious source unknown ED Course: The history was obtained from the patient. Amy is a 74 y.o. male who presents with a chief complaint of Fever. The patient has a past medical history of tongue cancer status post chemo with feeding tube. Patient currently in remission for several years. He also has a history of COPD, hypertension, hyperlipidemia, recurrent pneumonias presents from home for fever, tachypnea, and hypotension The patient presentation consistent with sepsis as patient has SIRS criteria with likely source of infection. Patient received IV fluids, IV antibiotics, blood cultures lactic acid were obtained. IV fluids contributed clinical improvement in the patient's sepsis. Chest x-ray performed was notable for likely minor infiltrate and given the patient's recent sputum culture that was positive for MRSA I did cover the patient for MRSA pneumonia. Patient will be admitted to hospital service for further evaluation and treatment of sepsis. Patient will be admitted to hospitalist service for further evaluation and treatment of infection. Critical Care Time: I personally saw this patient and independently provided 40 minutes of non-concurrent, critical care time, out of the total shared critical care time provided. This was due to my concern for respiratory distress and sepsis. Please see my MDM section of my ED note, for further details and management. In addition, this was independent and exclusive of separate billable procedures. Clinical Impression: 1. Sepsis, due to unspecified organism, unspecified whether acute organ dysfunction present (HCC) Disposition: ED Disposition ED Disposition Hospitalize Condition -- Comment Phone call required?: No Ifeanyi Scott DO ED Attending Physician [facility] EMERGENCY DEPARTMENT [1] Social History Socioeconomic History Marital status: Tobacco Use Smoking status: Former Current packs/day: 0.00 Types: Cigarettes Start date: 1960 Quit date: 2008 Years since quittin.8 Passive exposure: Past Smokeless tobacco: Never Vaping Use Vaping status: Never Used Substance and Sexual Activity Alcohol use: Not Currently Drug use: Not Currently Social Drivers of Health Financial Resource Strain: Low Risk (09/14/2024) Overall Financial Resource Strain (CARDIA) Difficulty of Paying Living Expenses: Not hard at all Food Insecurity: No Food Insecurity (11/18/2024) Hunger Vital Sign Worried About Running Out of Food in the Last Year: Never true Ran Out of Food in the Last Year: Never true Transportation Needs: No Transportation Needs (11/18/2024) PRAPARE - Transportation Lack of Transportation (Medical): No Lack of Transportation (Non-Medical): No Social Connections: Unknown (09/14/2024) Social Connection and Isolation Panel [NHANES] Frequency of Social Gatherings with Friends and Family: Once a week Housing Stability: Low Risk (11/18/2024) Housing Stability Vital Sign Unable to Pay for Housing in the Last Year: No Number of Times Moved in the Last Year: 1 Homeless in the Last Year: No [2] Allergies Allergen Reactions Budesonide Anaphylaxis Throat constriction Revefenacin Anaphylaxis Throat constriction Ipratropium-Albuterol Other (See Comments) Right side of face gets numb Ifeanyi Scott DO 12/15/24 0284 [facility] 12-15-2024 Emergency department Note states patient wears 2l NC at home. Patient placed on oxygen at this time. [facility] 12-15-2024 Emergency department Triage note Patient arrives with . Per patient started spiking fevers ib the 100s starting early today. Patient received tylenol at 6pm. Sepsis alert called upon arrival. [facility] 12-15-2024 Emergency department Note Patient placed on 2 L NC and sepsis alert called at this time. [facility] 12-15-2024 Emergency department Note Bed: 12 Expected date: 12/15/24 Expected time: Means of arrival: Comments: tr2 T [facility] 12-08-2024 Note HNO ID: [id number] Author: MATEO BANKS RT(R) Service: ? Author Type: Technologist Type: Progress Notes Filed: 12/08/2024 10:38 Note Text: Radiology Service Progress Note PATIENT NAME: mAy Sun DATE OF SERVICE: December 08, 2024 TIME: 10:26 AM PATIENT IDENTITY VERIFICATION COMPLETED USING TWO (2) IDENTIFIERS: Name and Date of confirmed by patient verbally. FALL SCREENING: Has the patient had 2 falls in the last year or 1 fall with injury or currently using an Ambulatory Assistive Device (Walker, Cane, Wheelchair, Crutches, etc.)? No PATIENT GENDER DATA: Assigned male at PATIENT RELEVANT IMPLANT DATA REVIEWED: Yes PATIENT PRESENTS WITH AN IMPLANTABLE OR ATTACHED SUBSCRIPTION AGENT: No RADIOLOGY DEPARTMENT: General X-ray: Exam(s) Completed: Chest X-Ray PERIPHERAL IV DATA: Not applicable SIGNED BY: RT Soren(R) December 08, 2024 10:26 AM [facility] 12-08-2024 Note HNO ID: [id number] Author: MATEO BANKS RT(Chuyita) Service: ? Author Type: Technologist Type: Progress Notes Filed: 12/08/2024 10:39 Note Text: Radiology Service Progress Note PATIENT NAME: Amy Snu DATE OF SERVICE: December 08, 2024 TIME: 10:39 AM PATIENT IDENTITY VERIFICATION COMPLETED USING TWO (2) IDENTIFIERS: Name and Date of confirmed by patient verbally. FALL SCREENING: Has the patient had 2 falls in the last year or 1 fall with injury or currently using an Ambulatory Assistive Device (Walker, Cane, Wheelchair, Crutches, etc.)? No PATIENT GENDER DATA: Assigned male at PATIENT RELEVANT IMPLANT DATA REVIEWED: Yes PATIENT PRESENTS WITH AN IMPLANTABLE OR ATTACHED SUBSCRIPTION AGENT: No RADIOLOGY DEPARTMENT: General X-ray: Exam(s) Completed: Chest X-Ray PERIPHERAL IV DATA: Not applicable SIGNED BY: RT Soren(R) December 08, 2024 10:39 AM [facility] 12-08-2024 Note HNO ID: [id number] Author: SARAH FERNANDEZ APRN.PROJECT FACILITATOR Service: ? 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 Recent history notable for hospital admission in June with bilateral PNA. Chest CT pertinent for multiple irregular patchy opacities in LLL and GGO in RLL. New patient 09/16/24 with c/o cough with significant mucus production. Has a hx of recurrent aspiration. Inhaled therapy increased to LABA/LAMA. Current inhaled therapy with Anoro Ellipta and PRN Albuterol. Previously with multiple intolerances to inhaled therapy, including nebulized treatments. He presents today for follow-up with his . Labs following his last visit pertinent for immunoglobulins and Alpha 1 negative. He was started on flutter valve for significant bronchiectasis but his states they forgot to pick it up. Review of chest CT for lung nodules suspected to be inflammatory. He had a sputum culture which showed Ecoli and was treated with Cipro. Since that time, he did not have any change in symptoms. He ended up being hospitalized from 11/17-11/22 at [facility] in [place]. His states he did not have his typical symptoms he normally presents with prior to taking him to the hospital. He had only become lethargic. Was treated for PNA, septic shock and acute hypoxic respiratory failure. Sputum cultures grew MRSA. Was treated with IV Vanco and discharged home on Augmentin and Linezolid for 7 days which is now complete. He has been NPO d/t history of aspiration PNA with trying to eat ice chips or popsicles. Since being home from the hospital, he and his state he is not quite back to baseline. He continues to have cough productive of thick sputum. Sputum can be white or dark in color. Rare hemoptysis. No wheezing. Denies significant dyspnea. No fevers, chills, or night sweats. His states that Flonase is helpful for cough as he chronically experiences sinus congestion and PND. Also has frequent headaches which she feels his sinuses contribute to. Finds Flonase to be helpful. Has previously seen ENT with his cancer history but not for his sinuses. DME: [facility] PAST MEDICAL HISTORY Diagnosis Date Aspiration into respiratory tract Bronchiectasis (HCC) Dysphagia Emphysema lung (HCC) Epiretinal membrane (ERM) of left eye Erythrocytosis 09/15/2014 Hyperlipemia 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) 12/02/2008 Nausea with vomiting PCO (posterior capsular opacification), left Pseudophakia, both eyes S/P percutaneous endoscopic gastrostomy (PEG) tube placement [facility]) Secondary and unspecified malignant neoplasm of lymph nodes of head, face, and neck 12/02/2008 Vitreous floaters Allergies: Budesonide Anaphylaxis Comment:Throat constriction Revefenacin Anaphylaxis Comment:Throat reconstruction Ipratropium-Albuter* Intolerance Comment:Right side of face gets numb Medication List Accurate as of December 08, 2024 8:03 AM. If you have any questions, ask your nurse or doctor. CONTINUE taking these medications apixaban 5 mg tab(s) Commonly known as: ELIQUIS aspirin, enteric coated 81 mg EC tablet Commonly known as: ASPIRIN, ENTERIC COATED BOOST VHC 0.09-2.25 gram-kcal/mL Liqd Generic drug: nut tx, lact-reduced, iron 52 mL by FEEDING TUBE route continuous. [place]minster with infinity feeding pump. Flush with an additional 33oz of water daily (divided). COMPLEAT 1.5 0.07 gram-1.5 kcal/mL Liqd Generic drug: nutritional supplement 80ml/hr of Compleat 1.5 continuously for 24 hours. Use 1 carton of Benecalorie daily. Flush with 200ml water four times per day. cyanocobalamin 500 mcg tablet Commonly known as: VITAMIN B-12 doxazosin 4 mg tablet Commonly known as: CARDURA enteric contrast (will be provided with radiology test) For CT ABD/PEL W IVCON Routine order Administer, As Directed One Time Only, via Oral, Rectal, both Oral and Rectal, Enteric Tube, Stoma or Indwelling Catheter, Enteric Contrast as designated per enteric contrast guidelines erythromycin 5 mg/gram (0.5 %) ophthalmic ointment Commonly known as: ROMYCIN Use 1 application in both eyes two times a week. famotidine 20 mg tablet Commonly known as: PEPCID finasteride 5 mg tablet Commonly known as: PROSCAR fluticasone 50 mcg/actuation nasal spray Commonly known as: FLONASE * iv contrast (will be provided with radiology test) CT Chest W -Inject, intravenously, once for 1 dose.No IV access, insert saline lock prior to (more content not included)... [facility] 11-22-2024 Progress note Formatting of t his note might be different from the original. AVS reviewed with patient and who verbalize understanding. Meds to beds supply received from pharmacy. IV removed with gauze and tegaderm in place. Patient discharged home with home health care. [facility] 11-22-2024 Miscellaneous Notes AVS reviewed with patient and who verbalize understanding. Meds to beds supply received from pharmacy. IV removed with gauze and tegaderm in place. Patient discharged home with home health care. Problem: Actual or potential alteration in health Goal: Absence of healthcare acquired conditions Outcome: Partially Met Goal: Knowledge of Interdisciplinary Plan of Care Outcome: Partially Met Goal: Knowledge of Enviroment Outcome: Partially Met Problem: Falls, Risk of Goal: Absence of falls Outcome: Partially Met Goal: Absence of physical injury Outcome: Partially Met Problem: Pain Goal: Reduced pain sensation Outcome: Partially Met Goal: Control of acute pain to acceptable level Outcome: Partially Met Goal: Able to cope with pain Outcome: Partially Met Goal: Able to achieve maximum level of physical functioning Outcome: Partially Met Goal: Able to achieve maximum level of psychosocial functioning Outcome: Partially Met Problem: Pressure Injury, Risk of Goal: Absence of pressure injury Outcome: Partially Met Problem: Actual or potential alteration in health Goal: Absence of healthcare acquired conditions Outcome: Partially Met Goal: Knowledge of Interdisciplinary Plan of Care Outcome: Partially Met Goal: Knowledge of Enviroment Outcome: Partially Met Problem: Falls, Risk of Goal: Absence of falls Outcome: Partially Met Goal: Absence of physical injury Outcome: Partially Met Problem: Pain Goal: Reduced pain sensation Outcome: Partially Met Goal: Control of acute pain to acceptable level Outcome: Partially Met Goal: Able to cope with pain Outcome: Partially Met Goal: Able to achieve maximum level of physical functioning Outcome: Partially Met Goal: Able to achieve maximum level of psychosocial functioning Outcome: Partially Met Problem: Pressure Injury, Risk of Goal: Absence of pressure injury Outcome: Partially Met Patient is on his baseline home oxygen in no distress. He is off all sedating and vasoactive gtts. Critical Care will sign off at this time. Please call or reconsult with any additional critical care needs. Verbal orders to the bedside nurse, Jose SANCHEZ, to remove CVC. POC reviewed and updated. POC updated and continued Problem: Actual or potential alteration in health Goal: Absence of healthcare acquired conditions Outcome: Partially Met Goal: Knowledge of Interdisciplinary Plan of Care Outcome: Partially Met Goal: Knowledge of Enviroment Outcome: Partially Met Problem: Falls, Risk of Goal: Absence of falls Outcome: Partially Met Goal: Absence of physical injury Outcome: Partially Met Problem: Pain Goal: Reduced pain sensation Outcome: Partially Met Goal: Control of acute pain to acceptable level Outcome: Partially Met Goal: Able to cope with pain Outcome: Partially Met Goal: Able to achieve maximum level of physical functioning Outcome: Partially Met Goal: Able to achieve maximum level of psychosocial functioning Outcome: Partially Met Problem: Pressure Injury, Risk of Goal: Absence of pressure injury Outcome: Partially Met Plan of care initiated at this time. Problem: Actual or potential alteration in health Goal: Absence of healthcare acquired conditions Outcome: Partially Met Goal: Knowledge of Interdisciplinary Plan of Care Outcome: Partially Met Goal: Knowledge of Enviroment Outcome: Partially Met Problem: Falls, Risk of Goal: Absence of falls Outcome: Partially Met Goal: Absence of physical injury Outcome: Partially Met Associated Order(s): Central Line Central Line Date/Time: 11/17/2024 10:56 PM Performed by: Antonio Fontaine DO Authorized by: Lisa Lance MD Written consent: obtained Consent given by: patient and spouse Indications: vascular access Anesthesia: local infiltration Anesthesia: Local Anesthetic: lidocaine 1% without epinephrine Anesthetic total: 7 mL Preparation: skin prepped with 2% chlorhexidine Sterile barriers: all five maximum sterile barriers used - cap, mask, sterile gown, sterile gloves, and large sterile sheet Hand hygiene: hand hygiene performed prior to central venous catheter insertion Patient position: Trendelenburg Catheter type: triple lumen Catheter size: 7.5 Fr Ultrasound guidance: yes Number of attempts: 2 attempts at left subclavian, 1 attempt at right internal jugular. Post-procedure: line sutured Assessment: no pneumothorax on x-ray, blood return through all ports, free fluid flow and placement verified by x-ray Patient tolerance: patient tolerated the procedure well with no immediate complications Comments: After discussion of risks and benefits, given patient's history of throat cancer and subsequent surgery, radiation and chemo with potential for scar tissue in the neck we elected to proceed with subclavian line placement. Unfortunately I was not able to place a guidewire after vascular access with left subclavian attempt. I then proceeded with ultrasound guided right internal jugular line placement which was successful on first attempt without complication. documented in this encounter [facility] 11-22-2024 History of Present illness Narrative Date: 11/22/2024 Time: 9:40 AM Patient Name: Amy Sun Date of : 1950 Discharge Disposition Update: Patient transferred from another unit. Handoff report received from NADEEM Rubi. Patient has a discharge order. Patient to resume current services through [facility]. Patient receives tube feeds through [facility] [place]. Secure chat sent to [place] with the home health hub. D/C Disposition: Home Health Care Services Final D/C Agency/Destination: [facility] Plan A: Home Health Care Services Plan A : Post Acute Patient Choice 1: [facility] Transportation: Discharge Disposition: Regulatory Documentation: Date: 11/22/2024 Time: 8:40 AM Patient Name: Amy Sun Date of : 1950 Name of [facility] agency: Pending / Accepted (if [facility], include region) current confirmed Referrals sent to: (names of agencies) [facility] pharmacy: (name) Referral pending or accepted? For OPAT, TPN, or TF: (list) Referral order placed? Has script been sent? (Yes/no) [facility] Medication / frequency 3 cartons Boost VHC + 2 cartons Compleat Standard 1.4 @ 105mL/hr from 8P-6A. Flush with 30 mL h2o before/after cyclic rate. Will need new script if changes are made Line / tube PEG tube [facility] (orders) created for the following services: [or waiting for ____ (i.e wound care)] [facility] Occupational Therapy Verify demographics (residential address) [address] [place] [id number] What is the primary number to reach you? [phone] Who is your family physician/primary care physician? Ulices Clark, DO Do you have a caregiver and/or teachable caregiver (list relationship, name & phone #)? Christa (Spouse) Are there any special precautions or safety concerns (isolation precautions, etc)? none Estimated Discharge Date (ROINT): 11/22/24 If discharge needs change, please reach out to liaison assigned on treatment team as hub is not notified of new consults once team is following Spiritual Care Progress Note Completed by: Amy Lynn Person(s) Present During this Visit: Patient, Spouse Time Spent in Direct Patient Care: 30 Narrative: Sign Out Clerk provided visit while rounding. Patients was watching the Aerob game. greeted fur finisher seamstress and shared about their life. Patient talked a little and seemed in good spirits but then fell asleep. Sign Out Clerk talked with patients as she shared about their family and what was going on with patient. had no needs at this time and expressed gratitude for visit. Chaplains remain available to patient and family for spiritual care as needed. Patients Response to Pastoral Care: Expressed Gratitude for Visit, Appeared to be well-engaged Planning for Future Visits: PRN Patient's Spiritual Needs Assessment 11/21/24 1000 Visit Background Visit With Patient;Spouse Visit By Staff Sign Out Clerk Visit Progression Introduction Visit Requested By Sign Out Clerk Initiated Visit Source Sign Out Clerk Initiated Visit Type Rounding Visit Circumstances and Events Routine Visit Visit Length (minutes) 30 Patient's Response to Pastoral Care Expressed Gratitude for Visit;Appeared to be well-engaged Visit Planning PRN Spiritual Assessment Not assessed during visit Rastafari Assessment Not assessed during this visit Family assessment provided? Not assessed during this visit MS PROGRESS NOTE Patient name: Amy Sun Date of : 1950 Assessment and plan Amy Sun is a 74 y.o. male patient of Ulices Clark DO with history of Asthma, BPH, CKD, COPD, hyperlipidemia, hypertension, migraine, prediabetes, tongue cancer presented to [facility] on 11/17/2024 with shortness of breath. Possible aspiration pneumonia Septic shock POA Leukocytosis Acute on top of chronic hypoxic respiratory failure COPD, chronically on 2 L NC Lactic acidosis multifocal pneumonia Asthma Tachypnea and persistent hypotension on admission Concern for aspiration pneumonia Presented with emesis, has a PEG tube due to previous dysphagia tree-in-bud findings on on recent CT from 11/08. COVID, influenza negative, LA 3.0, WBC 29 CTA pulmonary artery and CT abdomen pelvis shows right upper and middle lobe pneumonia. blood cultures, NGTD Sputum cultures growing MRSA susceptible to vancomycin, started vancomycin on 11/20 and will discharge the patient on linezolid Continuous SpO2, telemetry, keep SpO2 between 88 and 92 Pulmonary on board, appreciate recommendation Continue ICS/LABA, Roflumilast, no need for steroid at this moment. DuoNeb as needed and pulmonary hygiene PEP S/p vancomycin, continue Zosyn and azithromycin, de-escalate as soon as possible Sputum cultures growing MRSA, resume vancomycin and follow-up sensitivity Replete electrolyte as needed keep k>4, Phos > 3, Mag >2 Squamous cell carcinoma of the tongue S/p PEG tube for dysphagia Not currently receiving treatment Consult dietitian for reinitiation of PEG tube feeds once cleared for oral intake PE Eliquis 5mg BID 24hr Hypertension Dyslipidemia Demand ischemia, elevated troponin Home medication Cardura, will hold due to hypotension and shock Currently on no statin Prediabetes Last A1c 5.9, repeat A1c BG on admission 125 Will keep BG between 140 and 180 Okay for sliding scale BPH Hold Cardura and Flomax due to hypotension GERD Continue famotidine Migraine Depression Patient on sertraline, will continue Patient on sumatriptan and prophylactic Hypophosphatemia Hypokalemia Hypomagnesemia Replete as needed Discharge planning Medically ready for discharge: no Patient and/or family has been notified they are expected to be medically stable for discharge on the following date: 11/21/2024 Patient requires continued hospitalization due to: Treatment of respiratory infection, monitoring respiratory status Discussed with the patient and/or family that the following is a potential discharge location, understanding that the final plan will depend on the patient's progress and shared decision-making: [facility] facility The following resources have been ordered to assist with discharge barriers: care management, PT, OT Quality measures DVT prophylaxis: eliquis Serna catheter: absent Code status Full Code Subjective Patient seen and examined today morning at bedside. No acute overnight events. Still on room air with using oxygen as needed at night only. No fever overnight. Patient was able to ambulate, was encouraged to work with physical therapy. Have regular BMs. Planning for discharge tomorrow morning. Discussed with the patient and his at bedside and was able to answer all of their questions Objective BP 124/76 (BP Location: Left arm, Patient Position: Lying) Pulse (!) 58 Temp 97.4 F (36.3 C) (Oral) Resp (!) 22 Ht 6' 1 Wt 89.9 kg (198 lb 3.1 oz) SpO2 92% BMI 26.15 kg/m General appearance: alert; chronically ill appearing; in no acute distress HEENT: Head- normocephalic; Eyes- EOMI, sclera anicteric; Throat- mucous membranes moist Cardiovascular: regular rate and rhythm; normal S1, S2; no murmurs, rubs, clicks or gallops; peripheral edema absent Respiratory: Scattered rhonchi all over the chest on room air Abdomen: soft, non-tender, non-distended Neurological: oriented x 3; normal speech; no focal findings or movement disorder noted Musculoskeletal: no significant deformity or tenderness to palpation Skin: normal coloration Psych: normal mood and affect Spiritual Care Progress Note Completed by: Alisia Serra Person(s) Present During this Visit: Patient Time Spent in Direct Patient Care: 15 Narrative: Today I visited Amy Sun, 74 y.o. year old Male from [place] [id number] with identified zoroastrianism preference of Islam. Narrative I visited Faustino while rounding on the floor. No family members at bed side. Amy shared that he is recovering and hopeful, it will get better. I introduced spiritual care services and offered words of hope and blessings. Amy prayed for fur finisher seamstress. Plan & Recommendations Pastoral Care and the team of Chaplains will remain available for spiritual and emotional support as needed. Updates to psychosocial context and spiritual history: Grateful Spiritual Assessment of patient Primary spiritual need is MEANING & DIRECTION . Interventions employed in visit include named / explored decisions that need to be made/questions needing answers, explored previous coping strategies/decisions, and demonstrated support and guidance/came alongside patient/family member Outcomes achieved include Identified own primary/prominent heart's desire and Attained greater clarity regarding meaning/purpose Alisia Serra Staff Sign Out Clerk [facility] Jany on call pharmacy technician Sign Out Clerk BRIEF AIR QUALITY MANAGER ASSESSMENT [id number] 11/20/24 1400 Visit Background Visit With Patient Visit By Staff Sign Out Clerk Visit Progression Introduction Visit Requested By Sign Out Clerk Initiated Visit Source Sign Out Clerk Initiated Visit Type Inpatient;Rounding Visit Circumstances and Events Routine Visit Visit Length (minutes) 15 Patient's Response to Pastoral Care Expressed Gratitude for Visit;Appeared to be well-engaged Visit Planning Pt aware to contact Sign Out Clerk as needed Pharmacy to Dose Antimicrobials Assessment / Plan: Amy Sun is a 74 y.o. male initiated on vancomycin for pneumonia. Vancomycin goal AUC is 400-600 mcg h/mL. Current regimen will produce a predicted AUC of 521 mcg h/mL with trough of 14.3 mcg/mL. Pharmacy will continue to follow and make adjustments as needed. Please use [employer] to call pharmacy or secure chat the assigned pharmacist with questions. Dosing for this admission: Date Dose and interval before level (or initial dose) Level Dose and interval after level Notes/Follow-Up 11/20 1250mg iv q 12 hrs -- -- Level 11/22 Other active antibiotics include: piperacillin-tazobactam 3.375mg q8h Objective: Lab Results Component Value Date CREATININE 0.70 (L) 11/20/2024 CREATININE 0.71 (L) 11/19/2024 CREATININE 0.83 11/18/2024 CREATININE 0.97 11/17/2024 CREATININE 0.67 (L) 09/14/2024 Lab Results Component Value Date WBC 11.72 (H) 11/20/2024 WBC 17.64 (H) 11/19/2024 WBC 29.07 (H) 11/18/2024 WBC 18.12 (H) 11/17/2024 WBC 12.02 (H) 06/09/2024 Ht Readings from Last 1 Encounters: 11/18/24 6' 1 (185.4 cm) Wt Readings from Last 1 Encounters: 11/19/24 89.9 kg (198 lb 3.1 oz) [place] body weight: 79.9 kg (176 lb 2.4 oz) Adjusted ideal body weight: 83.9 kg (184 lb 15.5 oz) Patient Tmax (last 24 hours): 100.2 F Micro: Sputum Staphylococcus aureus (MRSA) MRSA Probe (-) Blood NGTD Strept/Legionella (presumptive (-)) Pharmacy Personnel: Kirk Cisse RPh,PharmD Contact: or Vocera [facility] PROGRESS NOTE Patient name: Amy Sun Date of : 1950 Assessment and plan Amy Sun is a 74 y.o. male patient of Ulices Clark DO with history of Asthma, BPH, CKD, COPD, hyperlipidemia, hypertension, migraine, prediabetes, tongue cancer presented to [facility] on 11/17/2024 with shortness of breath. Possible aspiration pneumonia Septic shock POA Leukocytosis Acute on top of chronic hypoxic respiratory failure COPD, chronically on 2 L NC Lactic acidosis multifocal pneumonia Asthma Tachypnea and persistent hypotension on admission Concern for aspiration pneumonia Presented with emesis, has a PEG tube due to previous dysphagia tree-in-bud findings on on recent CT from 11/08. COVID, influenza negative, LA 3.0, WBC 29 [address] abdomen pelvis shows right upper and middle lobe pneumonia. MRSA negative blood cultures, sputum culture NGTD Continuous SpO2, telemetry, keep SpO2 between 88 and 92 Pulmonary on board, appreciate recommendation Continue ICS/LABA, Roflumilast, no need for steroid at this moment. DuoNeb as needed and pulmonary hygiene PEP S/p vancomycin, continue Zosyn and azithromycin, de-escalate as soon as possible Sputum cultures growing MRSA, resume vancomycin and follow-up sensitivity Replete electrolyte as needed keep k>4, Phos > 3, Mag >2 Squamous cell carcinoma of the tongue S/p PEG tube for dysphagia Not currently receiving treatment Consult dietitian for reinitiation of PEG tube feeds once cleared for oral intake PE Eliquis 5mg BID 24hr Hypertension Dyslipidemia Demand ischemia, elevated troponin Home medication Cardura, will hold due to hypotension and shock Currently on no statin Prediabetes Last A1c 5.9, repeat A1c BG on admission 125 Will keep BG between 140 and 180 Okay for sliding scale BPH Hold Cardura and Flomax due to hypotension GERD Continue famotidine Migraine Depression Patient on sertraline, will continue Patient on sumatriptan and prophylactic Hypophosphatemia Hypokalemia Hypomagnesemia Replete as needed Discharge planning Medically ready for discharge: no Patient and/or family has been notified they are expected to be medically stable for discharge on the following date: 11/21/2024 Patient requires continued hospitalization due to: Treatment of respiratory infection, monitoring respiratory status Discussed with the patient and/or family that the following is a potential discharge location, understanding that the final plan will depend on the patient's progress and shared decision-making: [facility] facility The following resources have been ordered to assist with discharge barriers: care management, PT, OT Quality measures DVT prophylaxis: eliquis Serna catheter: absent Code status Full Code Subjective Seen and examined today morning at bedside in the ICU. No acute overnight events. Currently patient on room air, lying down in his bed comfortably. Much improvement in his respiratory status and was able to ambulate yesterday, was regular BMs. Discussed plan with patient and his at bedside and I was able to answer all their questions. Objective BP 106/70 Pulse (!) 58 Temp 98.4 F (36.9 C) (Oral) Resp (!) 26 Ht 6' 1 Wt 89.9 kg (198 lb 3.1 oz) SpO2 90% BMI 26.15 kg/m General appearance: alert; chronically ill appearing; in no acute distress HEENT: Head- normocephalic; Eyes- EOMI, sclera anicteric; Throat- mucous membranes moist Cardiovascular: regular rate and rhythm; normal S1, S2; no murmurs, rubs, clicks or gallops; peripheral edema absent Respiratory: Scattered rhonchi all over the chest on room air Abdomen: soft, non-tender, non-distended Neurological: oriented x 3; normal speech; no focal findings or movement disorder noted Musculoskeletal: no significant deformity or tenderness to palpation Skin: normal coloration Psych: normal mood and affect Date: 11/19/2024 Time: 2:54 PM Patient Name: Amy Sun Date of : 1950 Discharge Disposition Update: Patient to return home when medically ready. Services established with [facility]. D/C Disposition: Home Health Care Services Final D/C Agency/Destination: [facility] Plan A: Home Health Care Services Plan A : Post Acute Patient Choice 1: [facility] Transportation: Discharge Disposition: Regulatory Documentation: Date: 11/19/2024 Time: 9:51 AM Patient Name: Amy Sun Date of : 1950 Name of [facility] agency: Pending / Accepted (if [facility], include region) current confirmed Referrals sent to: (names of agencies) [facility] pharmacy: (name) Referral pending or accepted? For OPAT, TPN, or TF: (list) Referral order placed? Has script been sent? (Yes/no) [facility] Medication / frequency 3 cartons Boost [facility]HC + 2 cartons Compleat Standard 1.4 @ 105mL/hr from 8P-6A. Flush with 30 mL h2o before/after cyclic rate. Will need new script if changes are made Line / tube PEG tube [facility] (orders) created for the following services: [or waiting for ____ (i.e wound care)] [facility] Occupational [facility] Verify demographics (residential address) [address] [id number] What is the primary number to reach you? [phone] Who is your family physician/primary care physician? Ulices Clark, DO Do you have a caregiver and/or teachable caregiver (list relationship, name & phone #)? Christa (Spouse) Are there any special precautions or safety concerns (isolation precautions, etc)? none Estimated Discharge Date (RONIT): tbd If discharge needs change, please reach out to liaison assigned on treatment team as hub is not notified of new consults once team is following [facility] PROGRESS NOTE Patient name: Amy Sun Date of : 1950 Assessment and plan Amy Sun is a 74 y.o. male patient of Ulices Clark DO with history of Asthma, BPH, CKD, COPD, hyperlipidemia, hypertension, migraine, prediabetes, tongue cancer presented to [facility] on 11/17/2024 with shortness of breath. Possible aspiration pneumonia Septic shock POA Leukocytosis Acute on top of chronic hypoxic respiratory failure COPD, chronically on 2 L NC Lactic acidosis multifocal pneumonia Asthma Tachypnea and persistent hypotension on admission Concern for aspiration pneumonia Presented with emesis, has a PEG tube due to previous dysphagia tree-in-bud findings on on recent CT from 11/08. COVID, influenza negative, LA 3.0, WBC 29 CTA [address] artery and [address] abdomen pelvis shows right upper and middle lobe pneumonia. MRSA negative blood cultures, sputum culture NGTD Continuous SpO2, telemetry, keep SpO2 between 88 and 92 Pulmonary on board, appreciate recommendation Continue ICS/LABA, Roflumilast, no need for steroid at this moment. DuoNeb as needed and pulmonary hygiene PEP S/p vancomycin, continue Zosyn and azithromycin, de-escalate as soon as possible Replete electrolyte as needed keep k>4, Phos > 3, Mag >2 Squamous cell carcinoma of the tongue S/p PEG tube for dysphagia Not currently receiving treatment N.p.o. while requiring vasopressors Consult dietitian for reinitiation of PEG tube feeds once cleared for oral intake PE Eliquis 5mg BID 24hr Hypertension Dyslipidemia Demand ischemia, elevated troponin Home medication Cardura, will hold due to hypotension and shock Currently on no statin Prediabetes Last A1c 5.9, repeat A1c BG on admission 125 Will keep BG between 140 and 180 Okay for sliding scale BPH Hold Cardura and Flomax due to hypotension GERD Continue famotidine Migraine Depression Patient on sertraline, will continue Patient on sumatriptan and prophylactic Hypophosphatemia Hypokalemia Hypomagnesemia Replete as needed Discharge planning Medically ready for discharge: no Patient and/or family has been notified they are expected to be medically stable for discharge on the following date: 11/21/2024 Patient requires continued hospitalization due to: Treatment of respiratory infection, monitoring respiratory status Discussed with the patient and/or family that the following is a potential discharge location, understanding that the final plan will depend on the patient's progress and shared decision-making: [facility] The following resources have been ordered to assist with discharge barriers: care management, PT, OT Quality measures DVT prophylaxis: eliquis Serna catheter: absent Code status Full Code Subjective Patient seen examined today morning at bedside in the ICU. No acute overnight events. Still on Levophed 2 akash, 2 to 3 L NC. Have one-time fever overnight 100.2. He was out of bed, in a chair in NAD, feels much better today. Discussed with the patient and his at bedside treatment plan and I was able to answer all their questions. Objective BP (!) 93/55 Pulse 64 Temp 98.1 F (36.7 C) (Axillary) Resp 16 Ht 6' 1 Wt 89.9 kg (198 lb 3.1 oz) SpO2 94% BMI 26.15 kg/m General appearance: somnolent; chronically ill appearing; in no acute distress HEENT: Head- normocephalic; Eyes- EOMI, sclera anicteric; Throat- mucous membranes moist Cardiovascular: regular rate and rhythm; normal S1, S2; no murmurs, rubs, clicks or gallops; peripheral edema absent Respiratory: Scattered rhonchi all over the chest on nasal cannula Abdomen: soft, non-tender, non-distended Neurological: oriented x 3; normal speech; no focal findings or movement disorder noted Musculoskeletal: no significant deformity or tenderness to palpation Skin: normal coloration Psych: normal mood and affect CRITICAL CARE PROGRESS 11/19/2024 Patient: Amy Sun Date of : 1950 Site: [facility] Provider: Azalia Christianson CNP ASSESSMENT/PLAN: Amy Sun 74 y.o. male with history of HTN, HLD, COPD, BPH, GERD, CKD, oropharyngeal cancer, dysphagia who was admitted on 11/17 with septic shock and pneumonia. Respiratory: COPD. Chronic hypoxemic respiratory failure. Chronic bronchiectasis secondary to chronic aspiration. Wears 2L at baseline at night. PFT in 08/2023 with moderately severe obstruction with severe air trapping; mildly reduced DLCO and large response to bronchodilators. Anaphylaxis reactions to budesonide, revefenacin with intolerance to duoneb and all nebulized treatments. Unable to tolerate nebulized saline due to facial numbness/throat constriction. Alpha 1 anti trypsin negative (204 on 09/2024 at ). Previous sputum culture on 10/04/2024 at grew E.Coli. Currently on Daliresp, Anora Ellipta as home maintenance medications. Managed by Dr. Madhu Adler at pulmonary. Continue Vibratory PEP and IS. Unable to tolerate chest vest due to migraines. Azithromycin MWF. Dc Dulera and will have patient bring in own supply of Anora Ellipta given multiple anaphylactic reactions to pulmonary meds. Currently on 3L per nasal cannula. Goal sat 88-92%. Aspiration Pneumonia. Hx of chronic aspiration with PEG placed in 09/2024. Previous sputum culture in 09/[address] imaging with RUL/ML airspace disease. On Zosyn. Respiratory PCR, MRSA probe, urine antigens negative. Sputum culture pending. On Zosyn. Follow cultures. De-escalate as able. Cardiovascular: Shock, septic. BC NTD. Respiratory PCR, urine antigens, MRSA probe negative. Sputum culture pending. On Zosyn. MWF dosing of azithromycin. On Norepinephrine at 1 mcgs. Goal MAP >65. Trend lactate. Hx of PE. CTA in 12/2023 with RLL segmental PE with heart strain. On Eliquis. Neuro/Muscular: No acute issues. Serial neuro exams. Renal: No acute issues. Strict I/O. Avoid nephrotoxins. Medically manage electrolytes. Trend Cr. Hypophosphatemia. Replete per ERT protocol. GI/Nutrition: NPO. TF via PEG per african history professor. Oropharyngeal dysphagia with history of aspiration. Sp PEG 09/2024. Endocrine: Pre-diabetes. A1c 5.5. Accuchecks q4 with ISS coverage. Goal BG <180. Heme/Onc: Anemia. Hemoglobin stable. Trend. 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 Managed by [facility] oncology. ID: Sepsis with acute organ dysfunction and shock. Secondary to aspiration. Infectious work up NTD. On Zosyn. Management of shock as above. Follow cultures. De-escalate as able. Prophylaxis: Famotidine. Eliquis. Other: Full code 35 minutes of critical time provided thus far today not including procedures. SUBJECTIVE: History Since Last Visit: On minimal norepinephrine gtt. No acute events overnight. Pending Lab and Radiology Results Order Current Status Urine Aerobic Culture In process Blood Culture Aerobic/Anaerobic Preliminary result Blood Culture Aerobic/Anaerobic Preliminary result Sputum Aerobic Culture Preliminary result Interpretation of Testing: I personally reviewed the Chest X-ray and agree with the interpretation(s). Review of Systems: All other systems reviewed and negative other than HPI OBJECTIVE: Physical Examination: BP 105/69 Pulse (!) 59 Temp 98.1 F (36.7 C) (Axillary) Resp (!) 28 Ht 6' 1 Wt 89.9 kg (198 lb 3.1 oz) SpO2 94% BMI 26.15 kg/m Temp: [97.6 F (36.4 C)-100.2 F (37.9 C)] 98.1 F (36.7 C) Heart Rate: [53-75] 59 Resp: [16-30] 28 BP: (70-118)/(47-81) 105/69 SpO2 Readings from Last 1 Encounters: 11/19/24 94% Intake/Output Summary (Last 24 hours) at 11/19/2024 0719 Last data filed at 11/19/2024 0705 Gross per 24 hour Intake 2887.01 ml Output 1675 ml Net 1212.01 ml Vital Signs Reviewed. Gen: Alert and oriented x 3, In no apparent distress HEENT: Head: Normocephalic, no lesions, without obvious abnormality. Pharynx: Dental Hygiene adequate. Normal buccal mucosa. Normal pharynx. Neck: nontender, full range of motion, no mass, no focal lymphadenopathy Cardio: regular rate and rhythm, no murmur, brisk capillary refill Resp: clear to auscultation bilaterally, no wheezes or crackles, no tachypnea or accessory muscle use Abd: soft, nontender, nondistended, no hepatosplenomegaly, no mass, normal bowel sounds MSK: Moves all four extremities spontaneously. Neuro: Grossly normal without focal findings Skin: no rashes, no jaundice MEDICATIONS: Current Medications[1] Current HOME Medications: Prior to Admission Medications[2] Current HOSPITAL Medications: Current Hospital Medications[3] [x] Medications reviewed. [x] Labs reviewed. Pertinent findings noted: WBC 17 [x] Radiology reviewed. Pertinent findings noted: CXR [] Pathology reviewed. Pertinent findings noted: Family Update/ Code Status: Full code Laboratory and Additional Data Reviewed: Reviewed 11/19/24 7:19 AM: Laboratory, Microbiology, Radiology, Cardiology, and Medications [1] Current Facility-Administered Medications Medication Dose Route Frequency Provider Last Rate Last Admin acetaminophen (TYLENOL) solution 650 mg 650 mg Tube Q4H PRN Amy Frederick Jr., [facility],PharmD 650 mg at 11/19/24 0318 apixaban (ELIQUIS) tablet 5 mg 5 mg Tube BID Sivakumar Arias DO 5 mg at 11/18/242022 aspirin chewable tablet 81 mg 81 mg Tube Daily Madi Alaniz RPh,PharmD azithromycin (ZITHROMAX) tablet 250 mg 250 mg Tube Once per day on Friday Madi Alaniz RPh,PharmD famotidine (PEPCID) 40 mg/5 mL (8 mg/mL) suspension 20 mg 20 mg Tube BID Amy Frederick Jr., Abi,PharmD 20 mg at 11/18/242022 [Held by provider] finasteride (PROSCAR) tablet 5 mg 5 mg Oral Daily Sivakumar Arias DO insulin lispro (AdmeLOG,HumaLOG) injection 0-15 Units 0-15 Units Subcutaneous at bedtime Sivakumar Arias DO insulin lispro (AdmeLOG,HumaLOG) injection 0-30 Units 0-30 Units Subcutaneous Q4H [facility] Sivakumar Arias, naloxone (NARCAN) injection 0.1 mg 0.1 mg Intravenous PRN Caleb Nicolas MD And naloxone (NARCAN) injection 0.4 mg 0.4 mg Intravenous PRN Caleb Nicolas MD Nonformulary Request Form Inhalation Daily Azalia Christianson CNP Nonformulary Request Form Nasal Daily Azalia Christianson CNP norepinephrine (LEVOPHED) 4 mg in sodium chloride 0.9% (NS) 250 mL infusion 0-100 mcg/min Intravenous Continuous Antonio Fontaine DO 5.6 mL/hr at 11/19/2414 1.5 mcg/min at 11/19/24613 And VASOpressin (PITRESSIN) 0.2 unit/mL infusion 0.03 Units/min Intravenous Continuous PRN Antonio Fontaine DO Held at 11/17/24 2333 piperacillin-tazobactam (ZOSYN) IVPB 3.375 g (premix) 3.375 g Intravenous Q8H Caleb Nicolas MD 12.5 mL/hr at 11/19/2414 Rate Verify at 11/19/24 0614 potassium, sodium phosphates (PHOS-NAK) 280-160-250 mg packet 2 packet 2 packet Tube Q8H JuneJesus Alberto CNP 2 packet at 11/19/24 0447 roflumilast (DALIRESP) tablet 500 mcg 500 mcg Tube Daily Madi Alaniz RPh,PharmD senna-docusate (SENNA-S) 8.6-50 mg per tablet 1 tablet 1 tablet Tube BID Madi Alanzi RPh,PharmD 1 tablet at 11/18/242022 sertraline (ZOLOFT) tablet 50 mg 50 mg Tube Daily Madi Alaniz RPh,PharmD sodium chloride (PF) (NS) flush 10 mL 10 mL Intracatheter Q8H [facility] Caleb Nicolas MD 10 mL at 11/19/24 0554 sodium chloride (PF) (NS) flush 5 mL 5 mL Intravenous PRN Antonio Fontaine DO And sodium chloride 0.9% (NS) 0-150 mL/hr Intravenous PRN Antonio Fontaine DO SUMAtriptan (IMITREX) tablet 50 mg 50 mg Tube Q2H PRN Madi Alaniz nai,PharmD [2] Outpatient Medications Marked as Taking for the 11/17/24 encounter (Hospital Encounter): apixaban (Eliquis) 5 mg Tab, 1 (one) tablet (5 mg total) by Per G Tube route 2 (two) times a day . aspirin 81 MG EC tablet, 1 (one) tablet (81 mg total) by Other route every morning Per G tube . iqklngy-hemkhglozrqyl-xumekyxv (EXCEDRIN MIGRAINE) 250-250-65 mg per tablet, 1 (one) tablet by Per G Tube route every 6 (six) hours as needed for pain . cyanocobalamin, vitamin B-12, 2,500 mcg Tab, 1 (one) tablet (2,500 mcg total) by Per G Tube route nightly . doxazosin (CARDURA) 4 MG tablet, 1 (one) tablet (4 mg total) by Per G Tube route nightly . famotidine (PEPCID) 20 MG tablet, 1 (one) tablet (20 mg total) by Per G Tube route 2 (two) times a day . finasteride (PROSCAR) 5 mg tablet, 1 (one) tablet (5 mg total) by Per G Tube route nightly . fluticasone propionate (FLONASE) 50 mcg/actuation nasal spray, Instill 2 (two) sprays into each nostril daily . guaiFENesin (MUCINEX) 600 mg 12 hr tablet, 2 (two) tablets (1,200 mg total) by Other route every 12 (twelve) hours as needed for congestion Per G tube . Lactobacillus rhamnosus GG (CULTURELLE) 10 billion cell capsule, 1 (one) capsule by Per G Tube route every morning . propylene glycol/PF (SYSTANE PRO PF OPHT), Administer 1 drop to both eyes as needed . roflumilast (DALIRESP) 500 mcg tablet, 1 (one) tablet (500 mcg total) by Per G Tube route daily in the afternoon . sertraline (ZOLOFT) 50 MG tablet, Take 1 (one) tablet (50 mg total) by mouth daily . SUMAtriptan (IMITREX) 50 MG tablet, Take 1 (one) tablet (50 mg total) by mouth every 2 (two) hours as needed for migraine Max of 200 mg in 24hrs, do not treat more than 3 times a week . umeclidinium-vilanteroL 62.5-25 mcg/actuation DsDv, Inhale 1 Inhalation daily . [3] acetaminophen (TYLENOL) solution 650 mg, 650 mg, Tube, Q4H PRN apixaban (ELIQUIS) tablet 5 mg, 5 mg, Tube, BID aspirin chewable tablet 81 mg, 81 mg, Tube, Daily azithromycin (ZITHROMAX) tablet 250 mg, 250 mg, Tube, Once per day on Friday famotidine (PEPCID) 40 mg/5 mL (8 mg/mL) suspension 20 mg, 20 mg, Tube, BID [Held by provider] finasteride (PROSCAR) tablet 5 mg, 5 mg, Oral, Daily insulin lispro (AdmeLOG,HumaLOG) injection 0-15 Units, 0-15 Units, Subcutaneous, at bedtime AND Notify physician, , , Until Discontinued insulin lispro (AdmeLOG,HumaLOG) injection 0-30 Units, 0-30 Units, Subcutaneous, Q4H DO naloxone (NARCAN) injection 0.1 mg, 0.1 mg, Intravenous, PRN AND Notify physician, , , Until Discontinued AND naloxone (NARCAN) injection 0.4 mg, 0.4 mg, Intravenous, PRN Nonformulary Request Form, , Inhalation, Daily Nonformulary Request Form, , Nasal, Daily norepinephrine (LEVOPHED) 4 mg in sodium chloride 0.9% (NS) 250 mL infusion, 0-100 mcg/min, Intravenous, Continuous AND VASOpressin (PITRESSIN) 0.2 unit/mL infusion, 0.03 Units/min, Intravenous, Continuous PRN piperacillin-tazobactam (ZOSYN) IVPB 3.375 g (premix), 3.375 g, Intravenous, Q8H potassium, sodium phosphates (PHOS-NAK) 280-160-250 mg packet 2 packet, 2 packet, Tube, Q8H roflumilast (DALIRESP) tablet 500 mcg, 500 mcg, Tube, Daily senna-docusate (SENNA-S) 8.6-50 mg per tablet 1 tablet, 1 tablet, Tube, BID sertraline (ZOLOFT) tablet 50 mg, 50 mg, Tube, Daily sodium chloride (PF) (NS) flush 10 mL, 10 mL, Intracatheter, Q8H DO [COMPLETED] Insert peripheral IV, , , Once AND Saline lock IV, , , Once AND sodium chloride (PF) (NS) flush 5 mL, 5 mL, Intravenous, PRN AND sodium chloride 0.9% (NS), 0-150 mL/hr, Intravenous, PRN SUMAtriptan (IMITREX) tablet 50 mg, 50 mg, Tube, Q2H PRN Cosigned by Red Ferrara MD at 11/19/2024 12:43 PM EDT Associated attestation - Red Ferrara MD - 11/19/2024 12:43 PM EDT I personally examined and interviewed the patient with the PROJECT FACILITATOR. I spent 36 minutes in the intensive care unit providing critical care services to Amy Sun today independent of procedures and other care providers. My time managing this critically ill patient included review of interval history, laboratories, radiology and consultation reports; performing a physical examination; discussing the patient with the multi-disciplinary team and managing life sustaining therapies to prevent imminent clinical deterioration, including managing mechanical ventilation for life threatening respiratory failure. SUBJECTIVE: No acute events overnight. Weaned off pressors this AM. PHYSICAL EXAM: A&Ox3 CTAB RRR No edema DIAGNOSTIC STUDIES: CTA PULM ART AND CT ABD PELVIS WITH IV CONTRAST 11/17/24: 1. Right upper lobe and middle lobe airspace disease compatible with pneumonia. Mildly enlarged hilar and mediastinal lymph nodes likely reactive. Recommend follow-up to assure resolution. 2. Infrarenal abdominal aortic aneurysm. Recommend continued CT surveillance. 3. Findings suggestive of COPD. 4. Enlarged prostate. ASSESSMENT: Septic shock Aspiration pneumonia COPD Hx PE on Eliquis RECOMMENDATIONS: If remains off vasopressors for next 24 hours can remove CVC Empiric broad-spectrum abx, de-escalate pending blood and sputum cx and MRSA probe Continue home COPD regimen Pulmonary hygiene Supplemental oxygen to maintain sats 88-92% Spiritual Care Progress Note Completed by: Alisia Serra Person(s) Present During this Visit: Patient Time Spent in Direct Patient Care: 5 Narrative: Today I reviewed Amy Sun, 74 y.o. year old Male from [place] [id number] with identified zoroastrianism preference of Islam. Narrative I attempted visiting Faustino but the room was busy with nurse. Plan & Recommendations Pastoral Care and the team of Chaplains will remain available for spiritual and emotional support as needed. Alisia Serra Staff Sign Out Clerk [facility] morro Bartlett on call pharmacy technician Sign Out Clerk [employer] QUALITY MANAGER ENCOUNTER 11/18/24 1600 Visit Background Visit With Patient Visit By Staff Sign Out Clerk Visit Progression Attempt;Introduction Visit Requested By Sign Out Clerk Initiated Visit Source Sign Out Clerk Initiated Visit Type Inpatient;Rounding Visit Circumstances and Events Routine Visit Visit Length (minutes) 5 Patient's Response to Pastoral Care Timing of Visit Not Optimal. Visit Rescheduled Visit Planning PRN Chronic. No dressing. No concerns, TF ordered for nightly as he does at home Lab to add pcr panel and urine to already collected specimens [facility] PROGRESS NOTE Patient name: Amy Sun Date of : 1950 Assessment and plan Amy Sun is a 74 y.o. male patient of Ulices Clark DO with history of Asthma, BPH, CKD, COPD, hyperlipidemia, hypertension, migraine, prediabetes, tongue cancer presented to [facility] on 11/17/2024 with shortness of breath. Possible aspiration pneumonia Septic shock POA Leukocytosis Acute on top of chronic hypoxic respiratory failure COPD, chronically on 2 L NC Lactic acidosis multifocal pneumonia Asthma Tachypnea and persistent hypotension on admission Concern for aspiration pneumonia Presented with emesis, has a PEG tube due to previous dysphagia tree-in-bud findings on on recent CT from 11/08. COVID, influenza negative, LA 3.0, WBC 29 CTA pulmonary artery and CT abdomen pelvis shows right upper and middle lobe pneumonia. MRSA negative Follow-up blood cultures, sputum culture, Continuous SpO2, telemetry, keep SpO2 between 88 and 92 Consult pulmonology, appreciate recommendation Continue ICS/LABA, Roflumilast, no need for steroid at this moment. DuoNeb as needed S/p vancomycin, continue Zosyn and azithromycin, de-escalate as soon as possible Replete electrolyte as needed keep k>4, Phos > 3, Mag >2 Squamous cell carcinoma of the tongue S/p PEG tube for dysphagia Not currently receiving treatment N.p.o. while requiring vasopressors Consult dietitian for reinitiation of PEG tube feeds once cleared for oral intake PE Eliquis 5mg BID 24hr Hypertension Dyslipidemia Home medication Cardura, will hold due to hypotension and shock Currently on no statin Prediabetes Last A1c 5.9, repeat A1c BG on admission 125 Will keep BG between 140 and 180 Okay for sliding scale BPH Hold Cardura and Flomax due to hypotension GERD Continue famotidine Migraine Depression Patient on sertraline, will continue Patient on sumatriptan and prophylactic Discharge planning Medically ready for discharge: no Patient and/or family has been notified they are expected to be medically stable for discharge on the following date: 11/21/2024 Patient requires continued hospitalization due to: Treatment of respiratory infection, monitoring respiratory status Discussed with the patient and/or family that the following is a potential discharge location, understanding that the final plan will depend on the patient's progress and shared decision-making: [facility] The following resources have been ordered to assist with discharge barriers: care management, PT, OT Quality measures DVT prophylaxis: eliquis Serna catheter: absent Code status Full Code Subjective Patient seen and examined today morning at bedside in the ICU. Somnolent, on 4 L NC, still on Levophed 9 akash. Complaining of mild chest pain, no fever overnight. Discussed with the daughter at bedside treatment plan and they was able to answer all her questions. Also discussed with the ICU team at bedside. Objective BP (!) 86/62 Pulse (!) 58 Temp 100 F (37.8 C) (Axillary) Resp (!) 23 Ht 6' 1 Wt 87.1 kg (192 lb 0.3 oz) SpO2 92% BMI 25.33 kg/m General appearance: somnolent; chronically ill appearing; in no acute distress HEENT: Head- normocephalic; Eyes- EOMI, sclera anicteric; Throat- mucous membranes moist Cardiovascular: regular rate and rhythm; normal S1, S2; no murmurs, rubs, clicks or gallops; peripheral edema absent Respiratory: Scattered rhonchi all over the chest on nasal cannula Abdomen: soft, non-tender, non-distended Neurological: oriented x 3; normal speech; no focal findings or movement disorder noted Musculoskeletal: no significant deformity or tenderness to palpation Skin: normal coloration Psych: normal mood and affect I spent 36minutes providing critical care services independent of procedures and other care providers. My time managing this critically ill patient included review of interval history, laboratories, radiology and consultation reports; performing a physical examination; discussing patient with the care team and managing life sustaining therapies to prevent imminent clinical deterioration. Pharmacy to Dose Antimicrobials Assessment / Plan: Amy Sun is a 74 y.o. male initiated on vancomycin for pneumonia. Vancomycin goal AUC is 400-600 mcg h/mL. Current regimen will produce a predicted AUC of 482 mcg h/mL with trough of 12.5 mcg/mL. Pharmacy will continue to follow and make adjustments as needed. Please use [employer] to call pharmacy or secure chat the assigned pharmacist with questions. Dosing for this admission: Date Dose and interval before level (or initial dose) Level Dose and interval after level Notes/Follow-Up 11/18 1250mg iv q 18 hrs -- -- Other active antibiotics include: piperacillin-tazobactam 3.375mg q8h Objective: Lab Results Component Value Date CREATININE 0.97 11/17/2024 CREATININE 0.67 (L) 09/14/2024 CREATININE 0.85 06/08/2024 CREATININE 0.74 (L) 06/07/2024 CREATININE 0.77 (L) 05/03/2024 Lab Results Component Value Date WBC 18.12 (H) 11/17/2024 WBC 12.02 (H) 06/09/2024 WBC 21.22 (H) 06/08/2024 WBC 11.61 (H) 06/07/2024 WBC 7.08 05/03/2024 Ht Readings from Last 1 Encounters: 11/09/24 6' 1 (185.4 cm) Wt Readings from Last 1 Encounters: 11/15/24 84.2 kg (185 lb 9.6 oz) [place] body weight: 79.9 kg (176 lb 2.4 oz) Adjusted ideal body weight: 81.6 kg (179 lb 14.9 oz) Patient Tmax (last 24 hours): 101.8 F Micro: pending Pharmacy Personnel: Tasha Stoner RPh,PharmD Contact: or Vocera documented in this encounter [facility] 11-22-2024 Note HMS DISCHARGE SUMMAR Y -- [facility] Amy Sun : 1950 Admitted: 11/17/2024 Discharge Date: 11/22/24 PCP Handoff Recommended Outpatient Testing Follow-up with PCP in 1 week Results Pending At Discharge None Clinical Summary Amy Sun is a 74 y.o. male patient of Ulices Clark DO with history of Asthma, BPH, CKD, COPD, hyperlipidemia, hypertension, migraine, prediabetes, tongue cancer presented to [facility] on 11/17/2024 with shortness of breath. Possible aspiration pneumonia Septic shock POA Leukocytosis Acute on top of chronic hypoxic respiratory failure COPD, chronically on 2 L NC Lactic acidosis multifocal pneumonia Asthma Tachypnea and persistent hypotension on admission Presented with emesis, has a PEG tube due to previous dysphagia tree-in-bud findings on on recent CT from 11/08. COVID, influenza negative, LA 3.0, WBC 29, improved CTA pulmonary artery and CT abdomen pelvis shows right upper and middle lobe pneumonia. blood cultures, NGTD Sputum cultures growing MRSA susceptible to vancomycin, started vancomycin on 11/20 and will discharge the patient on linezolid Continuous SpO2, telemetry, keep SpO2 between 88 and 92 Pulmonary team was consulted Continue ICS/LABA, Roflumilast, no need for steroid at this moment. DuoNeb as needed and pulmonary hygiene PEP S/p Zosyn and azithromycin, Sputum cultures growing MRSA, resumed vancomycin Will discharge the patient on linezolid and Augmentin for another 7 days Squamous cell carcinoma of the tongue S/p PEG tube for dysphagia Not currently receiving treatment dietitian for reinitiation of PEG tube feeds PE Eliquis 5mg BID 24hr Hypertension Dyslipidemia Demand ischemia, elevated troponin Home medication Cardura, will hold due to hypotension and shock Currently on no statin Prediabetes Last A1c 5.9, repeat A1c BG on admission 125 Continue diet control on discharge BPH Continue Cardura and Flomax on discharge GERD Continue famotidine on discharge Migraine Depression Patient on sertraline, will continue Patient on sumatriptan and prophylactic Continue home medication discharge Hypophosphatemia Hypokalemia Hypomagnesemia Replete as needed Discharge Medications Discharge Medications New Medications Details amoxicillin-clavulanate 875-125 mg per tablet Commonly known as: AUGMENTIN Take 1 (one) tablet by mouth every 12 (twelve) hours for 7 days . Quantity: 14 tablet linezolid 600 mg tablet Commonly known as: ZYVOX Take 1 (one) tablet (600 mg total) by mouth 2 (two) times a day for 7 days . Quantity: 14 tablet Medications To Continue Details apixaban 5 mg Tab Commonly known as: Eliquis 1 (one) tablet (5 mg total) by Per G Tube route 2 (two) times a day . Quantity: 180 tablet aspirin 81 MG EC tablet 1 (one) tablet (81 mg total) by Other route every morning Per G tube . dtmfkkt-omfusyzvjuefe-wowbwrnp 250-250-65 mg per tablet Commonly known as: EXCEDRIN MIGRAINE 1 (one) tablet by Per G Tube route every 6 (six) hours as needed for pain . cyanocobalamin (vitamin B-12) 2,500 mcg Tab 1 (one) tablet (2,500 mcg total) by Per G Tube route nightly . doxazosin 4 MG tablet Commonly known as: CARDURA 1 (one) tablet (4 mg total) by Per G Tube route nightly . famotidine 20 MG tablet Commonly known as: PEPCID 1 (one) tablet (20 mg total) by Per G Tube route 2 (two) times a day . finasteride 5 mg tablet Commonly known as: PROSCAR 1 (one) tablet (5 mg total) by Per G Tube route nightly . fluticasone propionate 50 mcg/actuation nasal spray Commonly known as: FLONASE Instill 2 (two) sprays into each nostril daily . Quantity: 16 g guaiFENesin 600 mg 12 hr tablet Commonly known as: MUCINEX 2 (two) tablets (1,200 mg total) by Other route every 12 (twelve) hours as needed for congestion Per G tube . Lactobacillus rhamnosus GG 10 billion cell capsule Commonly known as: CULTURELLE 1 (one) capsule by Per G Tube route every morning . roflumilast 500 mcg tablet Commonly known as: DALIRESP 1 (one) tablet (500 mcg total) by Per G Tube route daily in the afternoon . sertraline 50 MG tablet Commonly known as: ZOLOFT Take 1 (one) tablet (50 mg total) by mouth daily . Quantity: 90 tablet SUMAtriptan 50 MG tablet Commonly known as: IMITREX Take 1 (one) tablet (50 mg total) by mouth every 2 (two) hours as needed for migraine Max of 200 mg in 24hrs, do not treat more than 3 times a week . Quantity: 10 tablet SYSTANE PRO PF OPHT Administer 1 drop to both eyes as needed . umeclidinium-vilanteroL 62.5-25 mcg/actuation Dsdv Inhale 1 Inhalation daily . Stopped Medications tamsulosin 0.4 mg capsule Commonly known as: FLOMAX Physician(s) Follow Up: OTHER - NOT IN LIST [facility] Address: [address] [place] [address] Jh Mckeon, [facility] [id number] Servicing Count (more content not included)... [facility] 11-22-2024 Hospital course Narrative [facility] 1950 Admitted: 11/17/2024 Discharge Date: 11/22/24 PCP Handoff Recommended Outpatient Testing Follow-up with PCP in 1 week Results Pending At Discharge None Clinical Summary Amy Sun is a 74 [facility]. [facility] of Asthma, BPH, CKD, COPD, hyperlipidemia, hypertension, migraine, prediabetes, tongue cancer presented to [facility] on 11/17/2024 with shortness of breath. Possible aspiration pneumonia Septic shock POA Leukocytosis Acute on top of chronic hypoxic respiratory failure COPD, chronically on 2 L NC Lactic acidosis multifocal pneumonia Asthma Tachypnea and persistent hypotension on admission Presented with emesis, has a PEG tube due to previous dysphagia tree-in-bud findings on on recent CT from 11/08. COVID, influenza negative, LA 3.0, WBC 29, improved CTA pulmonary artery and CT abdomen pelvis shows right upper and middle lobe pneumonia. blood cultures, NGTD Sputum cultures growing MRSA susceptible to vancomycin, started vancomycin on 11/20 and will discharge the patient on linezolid Continuous SpO2, telemetry, keep SpO2 between 88 and 92 Pulmonary team was consulted Continue ICS/LABA, Roflumilast, no need for steroid at this moment. DuoNeb as needed and pulmonary hygiene PEP S/p Zosyn and azithromycin, Sputum cultures growing MRSA, resumed vancomycin Will discharge the patient on linezolid and Augmentin for another 7 days Squamous cell carcinoma of the tongue S/p PEG tube for dysphagia Not currently receiving treatment dietitian for reinitiation of PEG tube feeds PE Eliquis 5mg BID 24hr Hypertension Dyslipidemia Demand ischemia, elevated troponin Home medication Cardura, will hold due to hypotension and shock Currently on no statin Prediabetes Last A1c 5.9, repeat A1c BG on admission 125 Continue diet control on discharge BPH Continue Cardura and Flomax on discharge GERD Continue famotidine on discharge Migraine Depression Patient on sertraline, will continue Patient on sumatriptan and prophylactic Continue home medication discharge Hypophosphatemia Hypokalemia Hypomagnesemia Replete as needed Discharge Medications Discharge Medications New Medications Details amoxicillin-clavulanate 875-125 mg per tablet Commonly known as: AUGMENTIN Take 1 (one) tablet by mouth every 12 (twelve) hours for 7 days . Quantity: 14 tablet linezolid 600 mg tablet Commonly known as: ZYVOX Take 1 (one) tablet (600 mg total) by mouth 2 (two) times a day for 7 days . Quantity: 14 tablet Medications To Continue Details apixaban 5 mg Tab Commonly known as: Eliquis 1 (one) tablet (5 mg total) by Per G Tube route 2 (two) times a day . Quantity: 180 tablet aspirin 81 MG EC tablet 1 (one) tablet (81 mg total) by Other route every morning Per G tube . bbidluf-zqbovxurrbqqa-tbioccsn 250-250-65 mg per tablet Commonly known as: EXCEDRIN MIGRAINE 1 (one) tablet by Per G Tube route every 6 (six) hours as needed for pain . cyanocobalamin (vitamin B-12) 2,500 mcg Tab 1 (one) tablet (2,500 mcg total) by Per G Tube route nightly . doxazosin 4 MG tablet Commonly known as: CARDURA 1 (one) tablet (4 mg total) by Per G Tube route nightly . famotidine 20 MG tablet Commonly known as: PEPCID 1 (one) tablet (20 mg total) by Per G Tube route 2 (two) times a day . finasteride 5 mg tablet Commonly known as: PROSCAR 1 (one) tablet (5 mg total) by Per G Tube route nightly . fluticasone propionate 50 mcg/actuation nasal spray Commonly known as: FLONASE Instill 2 (two) sprays into each nostril daily . Quantity: 16 g guaiFENesin 600 mg 12 hr tablet Commonly known as: MUCINEX 2 (two) tablets (1,200 mg total) by Other route every 12 (twelve) hours as needed for congestion Per G tube . Lactobacillus rhamnosus GG 10 billion cell capsule Commonly known as: CULTURELLE 1 (one) capsule by Per G Tube route every morning . roflumilast 500 mcg tablet Commonly known as: DALIRESP 1 (one) tablet (500 mcg total) by Per G Tube route daily in the afternoon . sertraline 50 MG tablet Commonly known as: ZOLOFT Take 1 (one) tablet (50 mg total) by mouth daily . Quantity: 90 tablet SUMAtriptan 50 MG tablet Commonly known as: IMITREX Take 1 (one) tablet (50 mg total) by mouth every 2 (two) hours as needed for migraine Max of 200 mg in 24hrs, do not treat more than 3 times a week . Quantity: 10 tablet SYSTANE PRO PF OPHT Administer 1 drop to both eyes as needed . umeclidinium-vilanteroL 62.5-25 mcg/actuation Dsdv Inhale 1 Inhalation daily . Stopped Medications tamsulosin 0.4 mg capsule Commonly known as: FLOMAX Physician(s) Follow Up: OTHER - NOT IN LIST [facility] Address: [address] [place] [address], [place] [id number] Servicing Counties: [facility] [phone] Condition at Discharge: Good Disposition: Home I reviewed discharge recommendations with the patient in person. Patient instructions, including activity, were given to the patient/family at discharge. On day of discharge I saw Amy Sun and spent: > 30 minutes on discharge. Completed by: Sivakumar Arias DO on 11/22/24, 8:42 AM documented in this encounter [facility] 11-22-2024 Plan of care note Problem: Actual or potential alteration in health Goal: Absence of healthcare acquired conditions Outcome: Partially Met Goal: Knowledge of Interdisciplinary Plan of Care Outcome: Partially Met Goal: Knowledge of Enviroment Outcome: Partially Met Problem: Falls, Risk of Goal: Absence of falls Outcome: Partially Met Goal: Absence of physical injury Outcome: Partially Met Problem: Pain Goal: Reduced pain sensation Outcome: Partially Met Goal: Control of acute pain to acceptable level Outcome: Partially Met Goal: Able to cope with pain Outcome: Partially Met Goal: Able to achieve maximum level of physical functioning Outcome: Partially Met Goal: Able to achieve maximum level of psychosocial functioning Outcome: Partially Met Problem: Pressure Injury, Risk of Goal: Absence of pressure injury Outcome: Partially Met [facility] 11-22-2024 Plan of care note Problem: Actual or potential alteration in health Goal: Absence of healthcare acquired conditions Outcome: Partially Met Goal: Knowledge of Interdisciplinary Plan of Care Outcome: Partially Met Goal: Knowledge of Enviroment Outcome: Partially Met Problem: Falls, Risk of Goal: Absence of falls Outcome: Partially Met Goal: Absence of physical injury Outcome: Partially Met Problem: Pain Goal: Reduced pain sensation Outcome: Partially Met Goal: Control of acute pain to acceptable level Outcome: Partially Met Goal: Able to cope with pain Outcome: Partially Met Goal: Able to achieve maximum level of physical functioning Outcome: Partially Met Goal: Able to achieve maximum level of psychosocial functioning Outcome: Partially Met Problem: Pressure Injury, Risk of Goal: Absence of pressure injury Outcome: Partially Met [facility] 11-21-2024 Note MS PROGRESS NOTE Patient name: Amy Sun Date of : 1950 Assessment and plan Amy Sun is a 74 y.o. male patient of AmberUlices DO with history of Asthma, BPH, CKD, COPD, hyperlipidemia, hypertension, migraine, prediabetes, tongue cancer presented to [facility] on 11/17/2024 with shortness of breath. Possible aspiration pneumonia Septic shock POA Leukocytosis Acute on top of chronic hypoxic respiratory failure COPD, chronically on 2 L NC Lactic acidosis multifocal pneumonia Asthma Tachypnea and persistent hypotension on admission Concern for aspiration pneumonia Presented with emesis, has a PEG tube due to previous dysphagia tree-in-bud findings on on recent CT from 11/08. COVID, influenza negative, LA 3.0, WBC 29 CTA pulmonary artery and CT abdomen pelvis shows right upper and middle lobe pneumonia. blood cultures, NGTD Sputum cultures growing MRSA susceptible to vancomycin, started vancomycin on 11/20 and will discharge the patient on linezolid Continuous SpO2, telemetry, keep SpO2 between 88 and 92 Pulmonary on board, appreciate recommendation Continue ICS/LABA, Roflumilast, no need for steroid at this moment. DuoNeb as needed and pulmonary hygiene PEP S/p vancomycin, continue Zosyn and azithromycin, de-escalate as soon as possible Sputum cultures growing MRSA, resume vancomycin and follow-up sensitivity Replete electrolyte as needed keep k>4, Phos > 3, Mag >2 Squamous cell carcinoma of the tongue S/p PEG tube for dysphagia Not currently receiving treatment Consult dietitian for reinitiation of PEG tube feeds once cleared for oral intake PE Eliquis 5mg BID 24hr Hypertension Dyslipidemia Demand ischemia, elevated troponin Home medication Cardura, will hold due to hypotension and shock Currently on no statin Prediabetes Last A1c 5.9, repeat A1c BG on admission 125 Will keep BG between 140 and 180 Okay for sliding scale BPH Hold Cardura and Flomax due to hypotension GERD Continue famotidine Migraine Depression Patient on sertraline, will continue Patient on sumatriptan and prophylactic Hypophosphatemia Hypokalemia Hypomagnesemia Replete as needed Discharge planning Medically ready for discharge: no Patient and/or family has been notified they are expected to be medically stable for discharge on the following date: 11/21/2024 Patient requires continued hospitalization due to: Treatment of respiratory infection, monitoring respiratory status Discussed with the patient and/or family that the following is a potential discharge location, understanding that the final plan will depend on the patient's progress and shared decision-making: [facility] The following resources have been ordered to assist with discharge barriers: care management, PT, OT Quality measures DVT prophylaxis: eliquis Serna catheter: absent Code status Full Code Subjective Patient seen and examined today morning at bedside. No acute overnight events. Still on room air with using oxygen as needed at night only. No fever overnight. Patient was able to ambulate, was encouraged to work with physical therapy. Have regular BMs. Planning for discharge tomorrow morning. Discussed with the patient and his at bedside and was able to answer all of their questions Objective BP 124/76 (BP Location: Left arm, Patient Position: Lying) Pulse (!) 58 Temp 97.4 degrees F (36.3 degrees C) (Oral) Resp (!) 22 Ht 6' 1 Wt 89.9 kg (198 lb 3.1 oz) SpO2 92% BMI 26.15 kg/m General appearance: alert; chronically ill appearing; in no acute distress HEENT: Head- normocephalic; Eyes- EOMI, sclera anicteric; Throat- mucous membranes moist Cardiovascular: regular rate and rhythm; normal S1, S2; no murmurs, rubs, clicks or gallops; peripheral edema absent Respiratory: Scattered rhonchi all over the chest on room air Abdomen: soft, non-tender, non-distended Neurological: oriented x 3; normal speech; no focal findings or movement disorder noted Musculoskeletal: no significant deformity or tenderness to palpation Skin: normal coloration Psych: normal mood and affect AUTHENTICATED BY SIVAKUMAR ARIAS, ON 11/21/2024 12:31:04 [facility] 11-20-2024 Note HMS PROGRESS NOTE Patient name: Amy Sun Date of : 1950 Assessment and plan Amy Sun is a 74 y.o. male patient of Ulices Clark DO with history of Asthma, BPH, CKD, COPD, hyperlipidemia, hypertension, migraine, prediabetes, tongue cancer presented to [facility] on 11/17/2024 with shortness of breath. Possible aspiration pneumonia Septic shock POA Leukocytosis Acute on top of chronic hypoxic respiratory failure COPD, chronically on 2 L NC Lactic acidosis multifocal pneumonia Asthma Tachypnea and persistent hypotension on admission Concern for aspiration pneumonia Presented with emesis, has a PEG tube due to previous dysphagia tree-in-bud findings on on recent CT from 11/08. COVID, influenza negative, LA 3.0, WBC 29 CTA pulmonary artery and CT abdomen pelvis shows right upper and middle lobe pneumonia. MRSA negative blood cultures, sputum culture NGTD Continuous SpO2, telemetry, keep SpO2 between 88 and 92 Pulmonary on board, appreciate recommendation Continue ICS/LABA, Roflumilast, no need for steroid at this moment. DuoNeb as needed and pulmonary hygiene PEP S/p vancomycin, continue Zosyn and azithromycin, de-escalate as soon as possible Sputum cultures growing MRSA, resume vancomycin and follow-up sensitivity Replete electrolyte as needed keep k>4, Phos > 3, Mag >2 Squamous cell carcinoma of the tongue S/p PEG tube for dysphagia Not currently receiving treatment Consult dietitian for reinitiation of PEG tube feeds once cleared for oral intake PE Eliquis 5mg BID 24hr Hypertension Dyslipidemia Demand ischemia, elevated troponin Home medication Cardura, will hold due to hypotension and shock Currently on no statin Prediabetes Last A1c 5.9, repeat A1c BG on admission 125 Will keep BG between 140 and 180 Okay for sliding scale BPH Hold Cardura and Flomax due to hypotension GERD Continue famotidine Migraine Depression Patient on sertraline, will continue Patient on sumatriptan and prophylactic Hypophosphatemia Hypokalemia Hypomagnesemia Replete as needed Discharge planning Medically ready for discharge: no Patient and/or family has been notified they are expected to be medically stable for discharge on the following date: 11/21/2024 Patient requires continued hospitalization due to: Treatment of respiratory infection, monitoring respiratory status Discussed with the patient and/or family that the following is a potential discharge location, understanding that the final plan will depend on the patient's progress and shared decision-making: [facility] The following resources have been ordered to assist with discharge barriers: care management, PT, OT Quality measures DVT prophylaxis: eliquis Serna catheter: absent Code status Full Code Subjective Seen and examined today morning at bedside in the ICU. No acute overnight events. Currently patient on room air, lying down in his bed comfortably. Much improvement in his respiratory status and was able to ambulate yesterday, was regular BMs. Discussed plan with patient and his at bedside and I was able to answer all their questions. Objective BP 106/70 Pulse (!) 58 Temp 98.4 degrees F (36.9 degrees C) (Oral) Resp (!) 26 Ht 6' 1 Wt 89.9 kg (198 lb 3.1 oz) SpO2 90% BMI 26.15 kg/m General appearance: alert; chronically ill appearing; in no acute distress HEENT: Head- normocephalic; Eyes- EOMI, sclera anicteric; Throat- mucous membranes moist Cardiovascular: regular rate and rhythm; normal S1, S2; no murmurs, rubs, clicks or gallops; peripheral edema absent Respiratory: Scattered rhonchi all over the chest on room air Abdomen: soft, non-tender, non-distended Neurological: oriented x 3; normal speech; no focal findings or movement disorder noted Musculoskeletal: no significant deformity or tenderness to palpation Skin: normal coloration Psych: normal mood and affect AUTHENTICATED BY SIVAKUMAR ARIAS, ON 11/20/2024 12:16:55 [facility] 11-20-2024 Progress note Formatting of t his note might be different from the original. Patient is on his baseline home oxygen in no distress. He is off all sedating and vasoactive gtts. Critical Care will sign off at this time. Please call or reconsult with any additional critical care needs. Verbal orders to the bedside nurse, Jose SANCHEZ, to remove CVC. [facility] Work Phone: 11-19-2024 Plan of care note POC reviewed and updated. [facility] 11-19-2024 Consult note Formatting of th is note is different from the original. Physical Therapy PHYSICAL THERAPY EVALUATION Skilled Therapy Needs After Discharge Are card cleaner Therapy Services Needed After Discharge: No Rehab Potential: Good, For goals Outcomes Measures Prior Function - Basic Mobility Raw Score: 24 Points Prior Function - Basic Mobility % Impaired: 0% AM-PAC Basic Mobility Raw Score: 19 Points AM-PAC Basic Mobility % Impaired: 36.99% Physical Therapy Assessment History: Dx: Severe CAP; Aspiration Pneumonia; Septic Shock; Respiratory Failure; COPD. The following factors influence the patient's participation in the PT plan of care: Personal Factors: Age, Limited Baseline Mobility Environmental Factors: Multi-level home The following co-morbidities (from this admission or prior) influence the patient's participation in this plan of care: HTN, OA, COPD Number of History elements affecting this patient's PT plan of care: 3 or more Examination of Body Systems: The patient presents with: Musculoskeletal impairments: Strength, Functional Endurance Neurologic Impairments: Balance Cardiopulmonary Impairments: Activity Tolerance, O2 Saturation Regulation with Activity. These impairments result in limitations of Gait, Functional Transfers, Stair-Climbing, Activity Tolerance. These impairments result in restrictions of Household mobility. Number of Body Systems elements affecting this patient's PT plan of care: 3 or more. Clinical Presentation: The patient's clinical presentation for this PT evaluation is evolving with changing characteristics as evidenced by current PT documentation. Activity Tolerance Activity Tolerance: Tolerates 10 - 20 min activity with multiple rests Therapy Precautions General Rehab Precautions: Fall risk Balance Assessment Sitting Balance - Static: Modified independent Standing Balance - Static: Supervision Foam Caster - Standing Static: (without assistive device) Bed Mobility Supine to Sit: (patient up in recliner upon PT arrival) Transfers Sit to Stand: Supervision Stand Pivot Transfers: Stand by assist Gait/Locomotion Gait Assistance: Stand by assist Assistive Device: (without AD) Distance: 1 Feet Additional Assessment Details Patient with SpO2 dropping to 77% during standing, Returns to 90% after sitting and breathing techniques Home Living Obtained Home Living and PLOF info from: Patient, Patient s family member Lives With: Spouse Type of Home: House Home Layout: One level (with basement) Rails on inside stairs: 1 rail Number of stairs inside home: 12 Steps to enter home: Yes Rails to enter home: None Number of stairs to enter home: 2 Bathroom Shower/Tub: Walk-in shower, Basement Bathroom Toilet: Raised, Basement Bathroom Equipment: Shower chair Mobility Equipment: Wheeled walker, Rollator, Home oxygen, Transport chair Additional Objective Details - Home Living: Pt can be called Bill. Prior Level of Function Level of [place] - Transfers/Ambulation/Mobility: Independent with functional transfers, Independent with household ambulation Level of [place] - ADLs: Independent Level of [place] - Homemaking: (Pt receives all nutrition via PEG tube; spouse does the laundry.) Driving: Patient drives Vocational: Retired Leisure: (Golf; TV.) Subjective Impression - Prior Function: Patient does sleep in recliner in basement, DId not use AD for gait prior to admit Past Medical History: Diagnosis Date Arthritis Asthma Benign prostatic hyperplasia Cancer (HCC) 2009 Tongue Chronic kidney disease (CKD) stage G1/A2, glomerular filtration rate (GFR) equal to or greater than 90 mL/min/1.73 square meter and albuminuria creatinine ratio between 30-299 mg/g COPD (chronic obstructive pulmonary disease) (HCC) ED (erectile dysfunction) Edema leg bilateral GERD (gastroesophageal reflux disease) Hepatic steatosis Hyperlipidemia Hypertension Insomnia Lung disorder Migraine without aura and without status migrainosus, not intractable 09/25/2023 Prediabetes Past Surgical History: Procedure Laterality Date ABDOMINAL SURGERY CATARACT EXTRACTION BILATERAL W/ ANTERIOR VITRECTOMY CATARACT EXTRACTION BILATERAL W/ ANTERIOR VITRECTOMY Bilateral CT COLONOSCOPY 03/25/2022 CT COLONOSCOPY LAPAROSCOPIC INGUINAL HERNIA REPAIR [address] Holder for tongue cancer PEG TUBE PLACEMENT 04/04/2023 VASECTOMY For complete objective data, detailed plan of care and patient education refer to: PT Evaluation flowsheet, PT Evaluation and Treatment flowsheet, PT Treatment flowsheet, patient Plan of Care, Plan of Care progress note, and Patient Education. This note stands as the current Discharge Summary upon patient discharge from the hospital or completion of Physical Therapy Plan. [facility] 11-19-2024 Consult note Formatting of th is note is different from the original. Physical Therapy PHYSICAL THERAPY EVALUATION Skilled Therapy Needs After Discharge Are card cleaner Therapy Services Needed After Discharge: No Rehab Potential: Good, For goals Outcomes Measures Prior Function - Basic Mobility Raw Score: 24 Points Prior Function - Basic Mobility % Impaired: 0% AM-PAC Basic Mobility Raw Score: 19 Points AM-PAC Basic Mobility % Impaired: 36.99% Physical Therapy Assessment History: Dx: Severe CAP; Aspiration Pneumonia; Septic Shock; Respiratory Failure; COPD. The following factors influence the patient's participation in the PT plan of care: Personal Factors: Age, Limited Baseline Mobility Environmental Factors: Multi-level home The following co-morbidities (from this admission or prior) influence the patient's participation in this plan of care: HTN, OA, COPD Number of History elements affecting this patient's PT plan of care: 3 or more Examination of Body Systems: The patient presents with: Musculoskeletal impairments: Strength, Functional Endurance Neurologic Impairments: Balance Cardiopulmonary Impairments: Activity Tolerance, O2 Saturation Regulation with Activity. These impairments result in limitations of Gait, Functional Transfers, Stair-Climbing, Activity Tolerance. These impairments result in restrictions of Household mobility. Number of Body Systems elements affecting this patient's PT plan of care: 3 or more. Clinical Presentation: The patient's clinical presentation for this PT evaluation is evolving with changing characteristics as evidenced by current PT documentation. Activity Tolerance Activity Tolerance: Tolerates 10 - 20 min activity with multiple rests Therapy Precautions General Rehab Precautions: Fall risk Balance Assessment Sitting Balance - Static: Modified independent Standing Balance - Static: Supervision Foam Caster - Standing Static: (without assistive device) Bed Mobility Supine to Sit: (patient up in recliner upon PT arrival) Transfers Sit to Stand: Supervision Stand Pivot Transfers: Stand by assist Gait/Locomotion Gait Assistance: Stand by assist Assistive Device: (without AD) Distance: 1 Feet Additional Assessment Details Patient with SpO2 dropping to 77% during standing, Returns to 90% after sitting and breathing techniques Home Living Obtained Home Living and PLOF info from: Patient, Patient s family member Lives With: Spouse Type of Home: House Home Layout: One level (with basement) Rails on inside stairs: 1 rail Number of stairs inside home: 12 Steps to enter home: Yes Rails to enter home: None Number of stairs to enter home: 2 Bathroom Shower/Tub: Walk-in shower, Basement Bathroom Toilet: Raised, Basement Bathroom Equipment: Shower chair Mobility Equipment: Wheeled walker, Rollator, Home oxygen, Transport chair Additional Objective Details - Home Living: Pt can be called Bill. Prior Level of Function Level of [place] - Transfers/Ambulation/Mobility: Independent with functional transfers, Independent with household ambulation Level of [place] - ADLs: Independent Level of [place] - Homemaking: (Pt receives all nutrition via PEG tube; spouse does the laundry.) Driving: Patient drives Vocational: Retired Leisure: (Golf; TV.) Subjective Impression - Prior Function: Patient does sleep in recliner in basement, DId not use AD for gait prior to admit Past Medical History: Diagnosis Date Arthritis Asthma Benign prostatic hyperplasia Cancer (HCC) 2009 Tongue Chronic kidney disease (CKD) stage G1/A2, glomerular filtration rate (GFR) equal to or greater than 90 mL/min/1.73 square meter and albuminuria creatinine ratio between 30-299 mg/g COPD (chronic obstructive pulmonary disease) (HCC) ED (erectile dysfunction) Edema leg bilateral GERD (gastroesophageal reflux disease) Hepatic steatosis Hyperlipidemia Hypertension Insomnia Lung disorder Migraine without aura and without status migrainosus, not intractable 09/25/2023 Prediabetes Past Surgical History: Procedure Laterality Date ABDOMINAL SURGERY CATARACT EXTRACTION BILATERAL W/ ANTERIOR VITRECTOMY CATARACT EXTRACTION BILATERAL W/ ANTERIOR VITRECTOMY Bilateral CT COLONOSCOPY 03/25/[address]22 CT COLONOSCOPY LAPAROSCOPIC INGUINAL HERNIA REPAIR [address]. Holder for tongue cancer PEG TUBE PLACEMENT 04/04/2023 VASECTOMY For complete objective data, detailed plan of care and patient education refer to: PT Evaluation flowsheet, PT Evaluation and Treatment flowsheet, PT Treatment flowsheet, patient Plan of Care, Plan of Care progress note, and Patient Education. This note stands as the current Discharge Summary upon patient discharge from the hospital or completion of Physical Therapy Plan. Occupational Therapy OCCUPATIONAL THERAPY EVALUATION Skilled Therapy Needs After Discharge Are OT Skilled Therapy Services Needed After Discharge: No OT DME Recommendation: None Rehab Potential: Good Outcomes Measures Prior Function Daily Activity Raw Score: 24 Prior Function Daily Activity % Impaired: 0% AM-PAC Daily Activity Raw Score: 19 AM-PAC Daily Activity % Impaired: 42.80% Occupational Therapy Assessment The patient's current functional participation deficits are bathing, functional mobility. This reduced independence will limit their life roles of premorbid level individual. The patient's co morbidities do affect patient performance in the above activities and roles. The performance deficits are a result of cardiopulmonary impairment(s) in generalized debility including strength, acitvity tolerance, respiratory capacity. The patient's home setup is a electronic imager, family / caregiver support is a electronic imager for return to prior level of function. The patient's education level is a electronic imager, compliance is a electronic imager, awareness of own capacity and performance is a electronic imager to return to prior level of function. During the assessment, (Minor modifiction of task) was required and several treatment options were identified in the plan of care. This consultation required extensive review of the medical and therapy history. Medical Diagnosis: Severe CAP; Aspiration Pneumonia; Septic Shock; Respiratory Failure; COPD. UE Function: R UE AROM to WNL and L UE AROM to WFL; bilateral UE strength is grossly 4- to 5/5 in areas tested with gross grasp about 5/5; pt was able to oppose thumb to digits using bilateral hands. Activity Tolerance Activity Tolerance: (Using O2 at 2 lpm; used O2 at home at night only at 2 lpm; SpO2 dropped to 77% during sock tasks seated at EOB with deep breathing encouraged and adequate recovery to 90% noted.) Therapy Precautions Orthotic Devices: No Weight Bearing Status: WFL Progressive Mobility Level 3 Cognition Arousal/Alertness: Appropriate responses to stimuli Orientation Level: Oriented to place, Oriented to time, Oriented to person (Knew birthdate.) Attention: Attends to quiet environment Hearing Status: Hard of hearing, Left ear, Right ear, Hearing aide Social Interaction: WFL, Irritable ADL Grooming: Minimal assist (Hair combing at bed level.) Lower Body Dressing: Stand by assist (SBA to don socks seated at EOB; donned pajama pants at bed level per self.) Functional Mobility: Stand by assist, Contact guard assist (For ambulation from EOB to chair; no AD.) Bed Mobility Supine to Sit: Modified independent, Head of bed elevated Foam Caster: bed positioning mechanics Functional Transfers Sit to Stand: Contact guard assist (SBA for stand to sit transition at chair.) Bed to Chair Transfers: Contact guard assist, Stand by assist Foam Caster: (None) (SBA for dynamic sitting at EOB during sock donning; SBA for static standing w/out AD or UE support.) Home Living Obtained Home Living and PLOF info from: Patient, Patient s family member Lives With: Spouse (She is retired and can assist pt at home.) Type of Home: House Home Layout: One level, Stairs between floors (Pt sleeps in recliner in basement; full bath available in basement w/walk-in shower and raised height toilet; main floor bathroom has grab bars in tub/shower and toilet areas.) Rails on inside stairs: 1 rail Number of stairs inside home: 12 Steps to enter home: Yes Rails to enter home: None Number of stairs to enter home: 2 Bathroom Shower/Tub: Walk-in shower, Basement Bathroom Toilet: Raised, Basement Bathroom Equipment: Shower chair Mobility Equipment: Wheeled walker, Rollator, Transport chair Additional Objective Details - Home Living: Pt can be called Bill. Prior Level of Function Level of [place] - Transfers/Ambulation/Mobility: Independent with functional transfers, Independent with household ambulation, Independent with community ambulation (No AD for ambulation at home SAP BW ARCHITECT.) Level of [place] - ADLs: Independent Level of [place] - Homemaking: (Pt receives all nutrition via PEG tube; spouse does the laundry.) Driving: Patient drives Vocational: Retired Leisure: (Golf; TV.) Past Medical History: Diagnosis Date Arthritis Asthma Benign prostatic hyperplasia Cancer (HCC) 2009 Tongue Chronic kidney disease (CKD) stage G1/A2, glomerular filtration rate (GFR) equal to or greater than 90 mL/min/1.73 square meter and albuminuria creatinine ratio between 30-299 mg/g COPD (chronic obstructive pulmonary disease) (HCC) ED (erectile dysfunction) Edema leg bilateral GERD (gastroesophageal reflux disease) Hepatic steatosis Hyperlipidemia Hypertension Insomnia Lung disorder Migraine without aura and without status migrainosus, not intractable 09/25/2023 Prediabetes Past Surgical History: Procedure Laterality Date ABDOMINAL SURGERY CATARACT EXTRACTION BILATERAL W/ ANTERIOR VITRECTOMY CATARACT EXTRACTION BILATERAL W/ ANTERIOR VITRECTOMY Bilateral CT COLONOSCOPY 03/25/[address]22 CT COLONOSCOPY LAPAROSCOPIC INGUINAL HERNIA REPAIR [address]. Holder for tongue cancer PEG TUBE PLACEMENT 04/04/2023 VASECTOMY For complete objective data, detailed plan of care and patient education refer to: OT Evaluation flowsheet, OT Evaluation and Treatment flowsheet, OT Treatment flowsheet, patient Plan of Care, Plan of Care progress note, and Patient Education. This note stands as the current Discharge Summary upon patient discharge from the hospital or completion of Occupational Therapy Plan of Care. Associated Order(s): IP CONSULT TO DIETITIAN Nutrition Care Initial Assessment Reason for visit: Physician Consult: Tube Feeding Initiate and Manage Nutrition Diagnosis: Inadequate oral intake r/t inability to consume sufficient energy PO aeb NPO. Nutrition Intervention Initiate Enteral Nutrition Nutrition Prescription: Diet:Continue NPO Tube Feeding: EN from home: 3 cartons Boost VHC + 2 cartons Compleat Standard 1.4 @ 105mL/hr from 8P-6A. Flush with 30 mL h2o before/after cyclic rate. Tube Feeding Route:OG Nutrition Goals: Receive greater than 80% of rx'd EN volume Start Date:11/18/2024 Expected End Date:11/22/2024 Nutrition Education: Not appropriate due to clinical presentation and No needs at this time Assessment: Pertinent clinical information: Presents with septic shock pna. 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 PEG in place with history of dysphagia/aspiration. S/p PEG in September of 2024. 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 Chronic kidney disease (CKD) stage G1/A2, glomerular filtration rate (GFR) equal to or greater than 90 mL/min/1.73 square meter and albuminuria creatinine ratio between 30-299 mg/g COPD (chronic obstructive pulmonary disease) (HCC) ED (erectile dysfunction) Edema leg bilateral GERD (gastroesophageal reflux disease) Hepatic steatosis Hyperlipidemia Hypertension Insomnia Lung disorder Migraine without aura and without status migrainosus, not intractable 09/25/2023 Prediabetes Past Surgical History: Procedure Laterality Date ABDOMINAL SURGERY CATARACT EXTRACTION BILATERAL W/ ANTERIOR VITRECTOMY CATARACT EXTRACTION BILATERAL W/ ANTERIOR VITRECTOMY Bilateral CT COLONOSCOPY 03/25/2022 CT COLONOSCOPY LAPAROSCOPIC INGUINAL HERNIA REPAIR [address]. Holder for tongue cancer PEG TUBE PLACEMENT 04/04/2023 VASECTOMY Height: 6' 1 Current weight: 87.1 kg (192 lb 0.3 oz) BMI Body mass index is 25.33 kg/m . Weight hx: Wt Readings from Last 10 Encounters: 11/18/24 87.1 kg (192 lb 0.3 oz) 11/15/24 84.2 kg (185 lb 9.6 oz) 11/09/24 84.6 kg (186 lb 9.6 oz) 09/14/24 84.1 kg (185 lb 6.4 oz) 08/11/24 80.7 kg (178 lb) 07/14/24 81.9 kg (180 lb 9.6 oz) 06/15/24 83.9 kg (185 lb) 06/07/24 83.7 kg (184 lb 8.4 oz) 06/07/24 81.6 kg (180 lb) 05/05/24 83.5 kg (184 lb) Significant Weight Change: No Current diet order: Diet: NPO Recent intake: Enteral Nutrition Current intake does not meet estimated needs. Barriers to adequate p.o. intakes: Dysphagia Nutrition Related Allergies/Intolerances: No Nutrition Related Allergies noted Cultural or Rastafari Dietary Needs :No Cultural or Rastafari Dietary needs noted Patient/family comments:Deferred: Pt sleeping. Spoke with . Will infuse HEN tonight but potentially switch to hospitals pump/ with HEN feed, 11/19. Difficulty Chewing or Swallowing: Yes Skin Integrity: Intact GI Function: WDL Fluid Status: WNL Physical Appearance: Unable to assess at this time Labs: Recent Labs 11/17/24185211/17/24200111/18/245 NA 144 < > 144 K 3.8 < > 3.7 BICARB 27 -- 25 CL 102 < > 108 GLUCOSE 125* < > 149* BUN 28* -- 22 CREATININE 0.97 -- 0.83 ALBUMIN 4.4 -- -- LIPASE 10* -- -- < > = values in this interval not displayed. Recent Labs 11/17/24185211/17/24200111/18/24 0335 GLUCOSE 125* 117* 149* Lab Results Component Value Date HGBA1C 5.4 11/18/2024 Home Medications Reviewed: Yes Scheduled Meds: apixaban 5 mg Tube BID [START ON 11/19/2024] aspirin 81 mg Tube Daily [START ON 11/19/2024] azithromycin 250 mg Tube Once per day on Friday famotidine 20 mg Tube BID lispro insulin 0-15 Units Subcutaneous at bedtime insulin lispro 0-30 Units Subcutaneous Q4H DO piperacillin-tazobactam (ZOSYN) extended infusion 3.375 g Intravenous Q8H [START ON 11/19/2024] roflumilast 500 mcg Tube Daily senna-docusate 1 tablet Tube BID [START ON 11/19/2024] sertraline 50 mg Tube Daily sodium chloride (PF) 10 mL Intracatheter Q8H DO [Held by provider] tamsulosin 0.4 mg Oral Daily Continuous Infusions: norEPINEPHrine (LEVOPHED) infusion 2 mcg/min (11/18/24 1315) And VASOpressin (SHOCK/SEPSIS) infusion Stopped (11/17/24 2333) Nutrient Depleting Medications: Proton Pump Inhibitors (Chronic Use) Medications whose absorption may be altered by tube feeding: None Identified Estimated Energy Needs Total Energy Estimated Needs: 2703-3286 Method for Estimating Needs: 25 kcal/kg Total Protein Estimated Needs: 105 Method for Estimating Needs: 1.2 gm/kg Margarita Cohen RD Date: 11/18/2024 Time: 12:22 PM Patient Name: Amy Sun Date of : 1950 Name of [facility] agency: Pending / Accepted (if [facility], include region) current confirmed Referrals sent to: (names of agencies) [facility] pharmacy: (name) Referral pending or accepted? For OPAT, TPN, or TF: (list) Referral order placed? Has script been sent? (Yes/no) [facility] [place] Medication / frequency 3 cartons Boost VHC + 2 cartons Compleat Standard 1.4 @ 105mL/hr from 8P-6A. Flush with 30 mL h2o before/after cyclic rate. Will need new script if changes are made Line / tube PEG tube [facility] (orders) created for the following services: [or waiting for ____ (i.e wound care)] [facility] Occupational Therapy Verify demographics (residential address) [place] [id number] What is the primary number to reach you? [phone] Who is your family physician/primary care physician? Ulices Clark, DO Do you have a caregiver and/or teachable caregiver (list relationship, name & phone #)? Christa (Spouse) Are there any special precautions or safety concerns (isolation precautions, etc)? none Estimated Discharge Date (RONIT): tbd If discharge needs change, please reach out to liaison assigned on treatment team as [facility] is not notified of new consults once team is following. Thank you. Associated Order(s): IP CONSULT TO CARE MANAGEMENT Date: 11/18/2024 Time: 12:05 PM Patient Name: Amy Sun Date of : 1950 Reason for Consult: Discharge needs Discharge Plan Discussion: Assessment completed with patient and family at bedside. Patient is alert and oriented. No advance directives on file. Patient has a PCP. [facility] medicare. He is from home with spouse. He was independent prior. He was receiving home care services [facility]. Hub consult placed. Home oxygen and TF from [facility] [place]. Discharge Plan: Plan A: Home Health Care Services Plan A : Post Acute Patient Choice 1: [facility] Transportation Assessment and Background Information: Family aware of the patient's advance care planning wishes:: Yes Medication adherence problem:: No History of falls in last 6 months:: No Do you have any cultural/spiritual connections or beliefs that would impact how we deliver your care?: No Chronic pain:: No Advance Directives: Patient Support: Does Patient have a PCP?: Yes Living Arrangements: Spouse/significant other Type of Residence: Private residence (one story home) Support Systems: Family members Assistance Needed: Yes Current Home Equipment: Cane, Front-wheeled walker Caregiver Identified: Yes Caregiver Assessment: SDOH: Associated Order(s): IP CONSULT TO MANAGER NICU CRITICAL CARE CONSULT 11/18/2024 Patient: Amy Sun Date of : 1950 Site: [facility] Referring Provider: Refer to consult order in electronic medical record Provider: Azalia Christianosn CNP ASSESSMENT/PLAN: Amy Sun 74 y.o. male with history of HTN, HLD, COPD, BPH, GERD, CKD, oropharyngeal cancer, dysphagia who was admitted on 11/17 with septic shock and pneumonia. Respiratory: COPD. Chronic hypoxemic respiratory failure. Chronic bronchiectasis secondary to chronic aspiration. PFT in 08/2023 with moderately severe obstruction with severe air trapping; mildly reduced DLCO and large response to bronchodilators. Anaphylaxis reactions to budesonide, revefenacin with intolerance to duoneb. Unable to tolerate nebulized saline due to facial numbness/throat reconstruction. Alpha 1 anti trypsin negative (204 on 09/2024 at ). Previous sputum culture on 10/04/2024 at grew E.Coli. Currently on Daliresp, Anora Ellipta as home maintenance medications. Managed by Dr. Madhu Adler at pulmonary. Start Vibratory PEP, Chest vest q6, Azithromycin MWF. Lobo Avelar and will have patient bring in own supply of Anora Ellipta given multiple anaphylactic reactions to pulmonary meds. Currently on 3L per nasal cannula. Goal sat 88-92%. Aspiration Pneumonia. Hx of chronic aspiration with PEG placed in 09/2024. Previous sputum culture in 09/[address] imaging with RUL/ML airspace disease. On Zosyn. Respiratory PCR, urine antigens pending. Check sputum culture, MRSA probe. On Zosyn/Vancomycin. Follow cultures. De-escalate as able. Cardiovascular: Shock, septic. BC NTD. Respiratory PCR and urine antigens pending. Check sputum culture, MRSA probe. On Zosyn/Vancomycin. Stop IV Azithromycin and transition to MWF dosing of azithromycin. On Norepinephrine at 11 mcgs. Goal MAP >65. Trend lactate. Hx of PE. CTA in 12/2023 with RLL segmental PE with heart strain. Eliquis on hold per primary. Would consider either bridging with heparin infusion or DVT prophylaxis. Defer to primary. Neuro/Muscular: No acute issues. Serial neuro exams. Renal: No acute issues. Strict I/O. Avoid nephrotoxins. Medically manage electrolytes. Trend Cr. GI/Nutrition: NPO. TF via PEG per african history professor. Oropharyngeal dysphagia with history of aspiration. Sp PEG 09/2024. Endocrine: Pre-diabetes. A1c 5.5. Accuchecks q4 with ISS coverage. Goal BG <180. Heme/Onc: Anemia. Hemoglobin stable. Trend. 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 Managed by [facility] oncology. ID: Sepsis with acute organ dysfunction and shock. Secondary to aspiration. Follow blood, urine, sputum cultures, urine antigens, MRSA probe. On Zosyn/Vancomycin. Management of shock as above. Follow cultures. De-escalate as able. Prophylaxis: Famotidine. DVT prophylaxis/resuming Eliquis - defer to primary service. Other: Full code. 40 minutes of critical care time provided thus far today not including procedures. SUBJECTIVE: Chief Complaint/Reason for Visit: shortness of breath and fever History of Present Illness: Amy Sun is a 74 y.o. male presenting from ED with complaint of shortness of breath and fever. Pending Lab and Radiology Results Order Current Status MRSA DNA Amplified Probe In process Respiratory PCR Panel In process S. pneumoniae Urine Antigen In process Urine Aerobic Culture In process Blood Culture Aerobic/Anaerobic Preliminary result Blood Culture Aerobic/Anaerobic Preliminary result Interpretation of Testing: I personally reviewed the EKG, Chest X-ray, and CT chest and agree with the interpretation(s). Review of Systems: All other systems reviewed and negative other than HPI 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 Chronic kidney disease (CKD) stage G1/A2, glomerular filtration rate (GFR) equal to or greater than 90 mL/min/1.73 square meter and albuminuria creatinine ratio between 30-299 mg/g COPD (chronic obstructive pulmonary disease) (HCC) ED (erectile dysfunction) Edema leg bilateral GERD (gastroesophageal reflux disease) Hepatic steatosis Hyperlipidemia Hypertension Insomnia Lung disorder Migraine without aura and without status migrainosus, not intractable 09/25/2023 Prediabetes Past Surgical History: Procedure Laterality Date ABDOMINAL SURGERY CATARACT EXTRACTION BILATERAL W/ ANTERIOR VITRECTOMY CATARACT EXTRACTION BILATERAL W/ ANTERIOR VITRECTOMY Bilateral CT COLONOSCOPY 03/25/2022 CT COLONOSCOPY LAPAROSCOPIC INGUINAL HERNIA REPAIR [address] Holder for tongue cancer PEG TUBE PLACEMENT 04/04/2023 VASECTOMY Family History Problem Relation Age of Onset Stroke Father Heart disease Father Coronary artery disease Father Diabetes Sister Coronary artery disease Brother Tobacco Use History[1] Additional History Comments: None Allergies: Budesonide, Revefenacin, and Ipratropium-albuterol Current Medications[2] Current HOME Medications: Prior to Admission Medications[3] Current HOSPITAL Medications: Current Hospital Medications[4] OBJECTIVE: Physical Examination: BP 108/70 (BP Location: Left arm, Patient Position: Lying) Pulse (!) 57 Temp 97.6 F (36.4 C) (Oral) Resp (!) 24 Ht 6' 1 Wt 87.1 kg (192 lb 0.3 oz) SpO2 94% BMI 25.33 kg/m Temp: [97.6 F (36.4 C)-101.8 F (38.8 C)] 97.6 F (36.4 C) Heart Rate: [57-95] 57 Resp: [16-29] 24 BP: (61-113)/(46-75) 108/70 SpO2 Readings from Last 1 Encounters: 11/18/24 94% Intake/Output Summary (Last 24 hours) at 11/18/2024 0831 Last data filed at 11/18/2024 0732 Gross per 24 hour Intake 1396.91 ml Output 1000 ml Net 396.91 ml Vital Signs Reviewed. Gen: Alert and oriented x 3, In no apparent distress HEENT: Head: Normocephalic, no lesions, without obvious abnormality. Pharynx: Dental Hygiene adequate. Normal buccal mucosa. Normal pharynx. Neck: nontender, full range of motion, no mass, no focal lymphadenopathy Cardio: regular rate and rhythm, no murmur, brisk capillary refill Resp: no tachypnea or accessory muscle use, right lung with rhonchi and rales Abd: soft, nontender, nondistended, no hepatosplenomegaly, no mass, normal bowel sounds MSK: Moves all four extremities spontaneously. Neuro: Grossly normal without focal findings Skin: no rashes, no jaundice Labs and Imaging: [x] Medications reviewed. [x] Labs reviewed. Pertinent findings noted: WBC 29 [x] Radiology reviewed. Pertinent findings noted: CXR, CTPA [] Pathology reviewed. Pertinent findings noted: Family Update/ Code Status: Full code Laboratory and Additional Data Reviewed: Reviewed 11/18/24 8:31 AM: Laboratory, Microbiology, Radiology, Cardiology, and Medications [1] Social History Tobacco Use Smoking Status Former Current packs/day: 0.00 Types: Cigarettes Start date: 1960 Quit date: 2008 Years since quittin.7 Passive exposure: Past Smokeless Tobacco Never [2] Current Facility-Administered Medications Medication Dose Route Frequency Provider Last Rate Last Admin acetaminophen (TYLENOL) solution 650 mg 650 mg Tube Q4H PRN Amy Frederick Jr., [facility],PharmD 650 mg at 11/18/24 0546 [START ON 11/19/2024] aspirin chewable tablet 81 mg 81 mg Tube Daily Madi Alaniz RP,PharmD azithromycin (ZITHROMAX) 500 mg in sodium chloride (NS) 0.9% 250 mL (vialmate) 500 mg Intravenous Q24H Caleb Nicolas MD famotidine (PEPCID) 40 mg/5 mL (8 mg/mL) suspension 20 mg 20 mg Tube BID Amy Frederick Jr., [facility],PharmD insulin lispro (AdmeLOG,HumaLOG) injection 0-15 Units 0-15 Units Subcutaneous at bedtime Sivakumar Arias, insulin lispro (AdmeLOG,HumaLOG) injection 0-30 Units 0-30 Units Subcutaneous Q4H DO Sivakumar Arias DO ipratropium-albuteroL (DUO-NEB) 0.5-2.5 mg/3 ml nebulizer solution 3 mL 3 mL Inhalation Q6H PRN Sivakumar Arias DO lidocaine 10 mg/mL (1 %) injection 10 mL 10 mL Infiltration Once Antonio Fontaine, mometasone-formoterol (DULERA) 100-5 mcg/actuation inhaler 2 puff 2 puff Inhalation BID Sivakumar Arias DO naloxone (NARCAN) injection 0.1 mg 0.1 mg Intravenous PRN Caleb Nicolas MD And naloxone (NARCAN) injection 0.4 mg 0.4 mg Intravenous PRN Caleb Nicolas MD norepinephrine (LEVOPHED) 4 mg in sodium chloride 0.9% (NS) 250 mL infusion 0-100 mcg/min Intravenous Continuous Antonio Fontaine DO 41.3 mL/hr at 11/18/24 0807 11 mcg/min at 11/18/24 0807 And VASOpressin (PITRESSIN) 0.2 unit/mL infusion 0.03 Units/min Intravenous Continuous PRN Antonio Fontaine DO Held at 11/17/24 2333 piperacillin-tazobactam (ZOSYN) IVPB 3.375 g (premix) 3.375 g Intravenous Q8H Caleb Nicolas MD Stopped at 11/18/24 0727 [START ON 11/19/2024] roflumilast (DALIRESP) tablet 500 mcg 500 mcg Tube Daily Madi Alaniz RPh,PharmJackie senna-docusate (SENNA-S) 8.6-50 mg per tablet 1 tablet 1 tablet Tube BID Madi Alaniz RPh,PharmD [START ON 11/19/2024] sertraline (ZOLOFT) tablet 50 mg 50 mg Tube Daily Madi Alaniz RPh,PharmD sodium chloride (PF) (NS) flush 10 mL 10 mL Intracatheter Q8H DO Caleb Nicolas MD sodium chloride (PF) (NS) flush 5 mL 5 mL Intravenous PRN Antonio Fontaine DO And sodium chloride 0.9% (NS) 0-150 mL/hr Intravenous PRN Antonio Fontaine DO SUMAtriptan (IMITREX) tablet 50 mg 50 mg Tube Q2H PRN Madi Alaniz RPh,PharmD [Held by provider] tamsulosin (FLOMAX) 24 hr capsule 0.4 mg 0.4 mg Oral Daily Caleb Nicolas MD vancomycin (VANCOCIN) 1250 mg in sodium chloride 0.9% (NS) 250 mL IVPB 1,250 mg Intravenous Q18H Tasha Stoner RPh,PharmD Stopped at 11/18/24 0105 [3] No outpatient medications have been marked as taking for the 11/17/24 encounter (Hospital Encounter). [4] acetaminophen (TYLENOL) solution 650 mg, 650 mg, Tube, Q4H PRN [START ON 11/19/2024] aspirin chewable tablet 81 mg, 81 mg, Tube, Daily [START ON 11/19/2024] azithromycin (ZITHROMAX) tablet 250 mg, 250 mg, Oral, Once per day on Friday famotidine (PEPCID) 40 mg/5 mL (8 mg/mL) suspension 20 mg, 20 mg, Tube, BID insulin lispro (AdmeLOG,HumaLOG) injection 0-15 Units, 0-15 Units, Subcutaneous, at bedtime AND Notify physician, , , Until Discontinued insulin lispro (AdmeLOG,HumaLOG) injection 0-30 Units, 0-30 Units, Subcutaneous, Q4H DO ipratropium-albuteroL (DUO-NEB) 0.5-2.5 mg/3 ml nebulizer solution 3 mL, 3 mL, Inhalation, Q6H PRN lidocaine 10 mg/mL (1 %) injection 10 mL, 10 mL, Infiltration, Once naloxone (NARCAN) injection 0.1 mg, 0.1 mg, Intravenous, PRN AND Notify physician, , , Until Discontinued AND naloxone (NARCAN) injection 0.4 mg, 0.4 mg, Intravenous, PRN Nonformulary Request Form, , Inhalation, Daily norepinephrine (LEVOPHED) 4 mg in sodium chloride 0.9% (NS) 250 mL infusion, 0-100 mcg/min, Intravenous, Continuous AND VASOpressin (PITRESSIN) 0.2 unit/mL infusion, 0.03 Units/min, Intravenous, Continuous PRN piperacillin-tazobactam (ZOSYN) IVPB 3.375 g (premix), 3.375 g, Intravenous, Q8H [START ON 11/19/2024] roflumilast (DALIRESP) tablet 500 mcg, 500 mcg, Tube, Daily senna-docusate (SENNA-S) 8.6-50 mg per tablet 1 tablet, 1 tablet, Tube, BID [START ON 11/19/2024] sertraline (ZOLOFT) tablet 50 mg, 50 mg, Tube, Daily sodium chloride (PF) (NS) flush 10 mL, 10 mL, Intracatheter, Q8H [facility] [COMPLETED] Insert peripheral IV, , , Once AND Saline lock IV, , , Once AND sodium chloride (PF) (NS) flush 5 mL, 5 mL, Intravenous, PRN AND sodium chloride 0.9% (NS), 0-150 mL/hr, Intravenous, PRN SUMAtriptan (IMITREX) tablet 50 mg, 50 mg, Tube, Q2H PRN [Held by provider] tamsulosin (FLOMAX) 24 hr capsule 0.4 mg, 0.4 mg, Oral, Daily vancomycin (VANCOCIN) 1250 mg in sodium chloride 0.9% (NS) 250 mL IVPB, 1,250 mg, Intravenous, Q18H Cosigned by Red Ferrara MD at 11/18/2024 12:58 PM EDT Associated attestation - Red Ferrara MD - 11/18/2024 12:58 PM EDT I personally examined and interviewed the patient with the PROJECT FACILITATOR. I spent 40 minutes in the intensive care unit providing critical care services to Amy Sun today independent of procedures and other care providers. My time managing this critically ill patient included review of interval history, laboratories, radiology and consultation reports; performing a physical examination; discussing the patient with the multi-disciplinary team and managing life sustaining therapies to prevent imminent clinical deterioration, including managing mechanical ventilation for life threatening respiratory failure. SUBJECTIVE: Amy Sun is a 74yo male with history of tongue cancer dx in 2008 now s/p PEG. He has history of chronic aspiration and presented with sob and fever. CT showing RUL/RML pneumonia. In ED, noted to be hypoxic and hypotensive unresponsive to fluids. Started on norepi. MICU consulted for septic shock management. PHYSICAL EXAM: A&Ox3 CTAB RRR No edema DIAGNOSTIC STUDIES: CTA PULM ART AND CT ABD PELVIS WITH IV CONTRAST 10/1/25: 1. Right upper lobe and middle lobe airspace disease compatible with pneumonia. Mildly enlarged hilar and mediastinal lymph nodes likely reactive. Recommend follow-up to assure resolution. 2. Infrarenal abdominal aortic aneurysm. Recommend continued CT surveillance. 3. Findings suggestive of COPD. 4. Enlarged prostate. ASSESSMENT: Septic shock Aspiration pneumonia COPD Hx PE on Eliquis RECOMMENDATIONS: Wean norepi to MAP >65 Empiric broad-spectrum abx, de-escalate pending blood and sputum cx and MRSA probe Continue home COPD regimen Pulmonary hygiene Supplemental oxygen to maintain sats 88-92% Heparin gtt until Eliquis resumed documented in this encounter [facility] 11-19-2024 Consult note Formatting of th is note is different from the original. Occupational Therapy OCCUPATIONAL THERAPY EVALUATION Skilled Therapy Needs After Discharge Are OT Skilled Therapy Services Needed After Discharge: No OT DME Recommendation: None Rehab Potential: Good Outcomes Measures Prior Function Daily Activity Raw Score: 24 Prior Function Daily Activity % Impaired: 0% AM-PAC Daily Activity Raw Score: 19 AM-PAC Daily Activity % Impaired: 42.80% Occupational Therapy Assessment The patient's current functional participation deficits are bathing, functional mobility. This reduced independence will limit their life roles of premorbid level individual. The patient's co morbidities do affect patient performance in the above activities and roles. The performance deficits are a result of cardiopulmonary impairment(s) in generalized debility including strength, acitvity tolerance, respiratory capacity. The patient's home setup is a electronic imager, family / caregiver support is a electronic imager for return to prior level of function. The patient's education level is a electronic imager, compliance is a electronic imager, awareness of own capacity and performance is a electronic imager to return to prior level of function. During the assessment, (Minor modifiction of task) was required and several treatment options were identified in the plan of care. This consultation required extensive review of the medical and therapy history. Medical Diagnosis: Severe CAP; Aspiration Pneumonia; Septic Shock; Respiratory Failure; COPD. UE Function: R UE AROM to WNL and L UE AROM to WFL; bilateral UE strength is grossly 4- to 5/5 in areas tested with gross grasp about 5/5; pt was able to oppose thumb to digits using bilateral hands. Activity Tolerance Activity Tolerance: (Using O2 at 2 lpm; used O2 at home at night only at 2 lpm; SpO2 dropped to 77% during sock tasks seated at EOB with deep breathing encouraged and adequate recovery to 90% noted.) Therapy Precautions Orthotic Devices: No Weight Bearing Status: WFL Progressive Mobility Level 3 Cognition Arousal/Alertness: Appropriate responses to stimuli Orientation Level: Oriented to place, Oriented to time, Oriented to person (Knew birthdate.) Attention: Attends to quiet environment Hearing Status: Hard of hearing, Left ear, Right ear, Hearing aide Social Interaction: WFL, Irritable ADL Grooming: Minimal assist (Hair combing at bed level.) Lower Body Dressing: Stand by assist (SBA to don socks seated at EOB; donned pajama pants at bed level per self.) Functional Mobility: Stand by assist, Contact guard assist (For ambulation from EOB to chair; no AD.) Bed Mobility Supine to Sit: Modified independent, Head of bed elevated Foam Caster: bed positioning mechanics Functional Transfers Sit to Stand: Contact guard assist (SBA for stand to sit transition at chair.) Bed to Chair Transfers: Contact guard assist, Stand by assist Foam Caster: (None) (SBA for dynamic sitting at EOB during sock donning; SBA for static standing w/out AD or UE support.) Home Living Obtained Home Living and PLOF info from: Patient, Patient s family member Lives With: Spouse (She is retired and can assist pt at home.) Type of Home: House Home Layout: One level, Stairs between floors (Pt sleeps in recliner in basement; full bath available in basement w/walk-in shower and raised height toilet; main floor bathroom has grab bars in tub/shower and toilet areas.) Rails on inside stairs: 1 rail Number of stairs inside home: 12 Steps to enter home: Yes Rails to enter home: None Number of stairs to enter home: 2 Bathroom Shower/Tub: Walk-in shower, Basement Bathroom Toilet: Raised, Basement Bathroom Equipment: Shower chair Mobility Equipment: Wheeled walker, Rollator, Transport chair Additional Objective Details - Home Living: Pt can be called Bill. Prior Level of Function Level of [place] - Transfers/Ambulation/Mobility: Independent with functional transfers, Independent with household ambulation, Independent with community ambulation (No AD for ambulation at home SAP BW ARCHITECT.) Level of [place] - ADLs: Independent Level of [place] - Homemaking: (Pt receives all nutrition via PEG tube; spouse does the laundry.) Driving: Patient drives Vocational: Retired Leisure: (Golf; TV.) Past Medical History: Diagnosis Date Arthritis Asthma Benign prostatic hyperplasia Cancer (HCC) 2009 Tongue Chronic kidney disease (CKD) stage G1/A2, glomerular filtration rate (GFR) equal to or greater than 90 mL/min/1.73 square meter and albuminuria creatinine ratio between 30-299 mg/g COPD (chronic obstructive pulmonary disease) (HCC) ED (erectile dysfunction) Edema leg bilateral GERD (gastroesophageal reflux disease) Hepatic steatosis Hyperlipidemia Hypertension Insomnia Lung disorder Migraine without aura and without status migrainosus, not intractable 09/25/2023 Prediabetes Past Surgical History: Procedure Laterality Date ABDOMINAL SURGERY CATARACT EXTRACTION BILATERAL W/ ANTERIOR VITRECTOMY CATARACT EXTRACTION BILATERAL W/ ANTERIOR VITRECTOMY Bilateral CT COLONOSCOPY 03/25/[address]22 CT COLONOSCOPY LAPAROSCOPIC INGUINAL HERNIA REPAIR [address] Holder for tongue cancer PEG TUBE PLACEMENT 04/04/2023 VASECTOMY For complete objective data, detailed plan of care and patient education refer to: OT Evaluation flowsheet, OT Evaluation and Treatment flowsheet, OT Treatment flowsheet, patient Plan of Care, Plan of Care progress note, and Patient Education. This note stands as the current Discharge Summary upon patient discharge from the hospital or completion of Occupational Therapy Plan of Care. [facility] 11-19-2024 Note HMS PROGRESS NOTE Patient name: Amy Sun Date of : 1950 Assessment and plan Amy Sun is a 74 y.o. male patient of Ulices Clark DO with history of Asthma, BPH, CKD, COPD, hyperlipidemia, hypertension, migraine, prediabetes, tongue cancer presented to [facility] on 11/17/2024 with shortness of breath. Possible aspiration pneumonia Septic shock POA Leukocytosis Acute on top of chronic hypoxic respiratory failure COPD, chronically on 2 L NC Lactic acidosis multifocal pneumonia Asthma Tachypnea and persistent hypotension on admission Concern for aspiration pneumonia Presented with emesis, has a PEG tube due to previous dysphagia tree-in-bud findings on on recent CT from 11/08. COVID, influenza negative, LA 3.0, WBC 29 CTA pulmonary artery and CT abdomen pelvis shows right upper and middle lobe pneumonia. MRSA negative blood cultures, sputum culture NGTD Continuous SpO2, telemetry, keep SpO2 between 88 and 92 Pulmonary on board, appreciate recommendation Continue ICS/LABA, Roflumilast, no need for steroid at this moment. DuoNeb as needed and pulmonary hygiene PEP S/p vancomycin, continue Zosyn and azithromycin, de-escalate as soon as possible Replete electrolyte as needed keep k>4, Phos > 3, Mag >2 Squamous cell carcinoma of the tongue S/p PEG tube for dysphagia Not currently receiving treatment N.p.o. while requiring vasopressors Consult dietitian for reinitiation of PEG tube feeds once cleared for oral intake PE Eliquis 5mg BID 24hr Hypertension Dyslipidemia Demand ischemia, elevated troponin Home medication Cardura, will hold due to hypotension and shock Currently on no statin Prediabetes Last A1c 5.9, repeat A1c BG on admission 125 Will keep BG between 140 and 180 Okay for sliding scale BPH Hold Cardura and Flomax due to hypotension GERD Continue famotidine Migraine Depression Patient on sertraline, will continue Patient on sumatriptan and prophylactic Hypophosphatemia Hypokalemia Hypomagnesemia Replete as needed Discharge planning Medically ready for discharge: no Patient and/or family has been notified they are expected to be medically stable for discharge on the following date: 11/21/2024 Patient requires continued hospitalization due to: Treatment of respiratory infection, monitoring respiratory status Discussed with the patient and/or family that the following is a potential discharge location, understanding that the final plan will depend on the patient's progress and shared decision-making: [facility] facility The following resources have been ordered to assist with discharge barriers: care management, PT, OT Quality measures DVT prophylaxis: eliquis Serna catheter: absent Code status Full Code Subjective Patient seen examined today morning at bedside in the ICU. No acute overnight events. Still on Levophed 2 akash, 2 to 3 L NC. Have one-time fever overnight 100.2. He was out of bed, in a chair in NAD, feels much better today. Discussed with the patient and his at bedside treatment plan and I was able to answer all their questions. Objective BP (!) 93/55 Pulse 64 Temp 98.1 degrees F (36.7 degrees C) (Axillary) Resp 16 Ht 6' 1 Wt 89.9 kg (198 lb 3.1 oz) SpO2 94% BMI 26.15 kg/m General appearance: somnolent; chronically ill appearing; in no acute distress HEENT: Head- normocephalic; Eyes- EOMI, sclera anicteric; Throat- mucous membranes moist Cardiovascular: regular rate and rhythm; normal S1, S2; no murmurs, rubs, clicks or gallops; peripheral edema absent Respiratory: Scattered rhonchi all over the chest on nasal cannula Abdomen: soft, non-tender, non-distended Neurological: oriented x 3; normal speech; no focal findings or movement disorder noted Musculoskeletal: no significant deformity or tenderness to palpation Skin: normal coloration Psych: normal mood and affect AUTHENTICATED BY SIVAKUMAR ARIAS, ON 11/19/2024 13:37:00 [facility] 11-19-2024 Note ---- Attestation signed by Red Ferrara MD at 11/19/2024 12:43 PM I personally examined and interviewed the patient with the PROJECT FACILITATOR. I spent 36 minutes in the intensive care unit providing critical care services to Amy Sun today independent of procedures and other care providers. My time managing this critically ill patient included review of interval history, laboratories, radiology and consultation reports; performing a physical examination; discussing the patient with the multi-disciplinary team and managing life sustaining therapies to prevent imminent clinical deterioration, including managing mechanical ventilation for life threatening respiratory failure. SUBJECTIVE: No acute events overnight. Weaned off pressors this AM. PHYSICAL EXAM: A&Ox3 CTAB RRR No edema DIAGNOSTIC STUDIES: CTA PULM ART AND CT ABD PELVIS WITH IV CONTRAST 11/17/24: 1. Right upper lobe and middle lobe airspace disease compatible with pneumonia. Mildly enlarged hilar and mediastinal lymph nodes likely reactive. Recommend follow-up to assure resolution. 2. Infrarenal abdominal aortic aneurysm. Recommend continued CT surveillance. 3. Findings suggestive of COPD. 4. Enlarged prostate. ASSESSMENT: Septic shock Aspiration pneumonia COPD Hx PE on Eliquis RECOMMENDATIONS: If remains off vasopressors for next 24 hours can remove CVC Empiric broad-spectrum abx, de-escalate pending blood and sputum cx and MRSA probe Continue home COPD regimen Pulmonary hygiene Supplemental oxygen to maintain sats 88-92% ---- CRITICAL CARE PROGRESS 11/19/2024 Patient: Amy Sun Date of : 1950 Site: [facility] Provider: Azalia Christianson CNP ASSESSMENT/PLAN: Amy Sun 74 y.o. male with history of HTN, HLD, COPD, BPH, GERD, CKD, oropharyngeal cancer, dysphagia who was admitted on 11/17 with septic shock and pneumonia. Respiratory: COPD. Chronic hypoxemic respiratory failure. Chronic bronchiectasis secondary to chronic aspiration. Wears 2L at baseline at night. PFT in 08/2023 with moderately severe obstruction with severe air trapping; mildly reduced DLCO and large response to bronchodilators. Anaphylaxis reactions to budesonide, revefenacin with intolerance to duoneb and all nebulized treatments. Unable to tolerate nebulized saline due to facial numbness/throat constriction. Alpha 1 anti trypsin negative (204 on 09/2024 at ). Previous sputum culture on 10/04/2024 at grew E.Coli. Currently on Daliresp, Anora Ellipta as home maintenance medications. Managed by Dr. Madhu Adler at pulmonary. Continue Vibratory PEP and IS. Unable to tolerate chest vest due to migraines. Azithromycin MWF. Lobo Avelar and will have patient bring in own supply of Anora Ellipta given multiple anaphylactic reactions to pulmonary meds. Currently on 3L per nasal cannula. Goal sat 88-92%. Aspiration Pneumonia. Hx of chronic aspiration with PEG placed in 09/2024. Previous sputum culture in 09/[address] imaging with RUL/ML airspace disease. On Zosyn. Respiratory PCR, MRSA probe, urine antigens negative. Sputum culture pending. On Zosyn. Follow cultures. De-escalate as able. Cardiovascular: Shock, septic. BC NTD. Respiratory PCR, urine antigens, MRSA probe negative. Sputum culture pending. On Zosyn. MWF dosing of azithromycin. On Norepinephrine at 1 mcgs. Goal MAP >65. Trend lactate. Hx of PE. CTA in 12/2023 with RLL segmental PE with heart strain. On Eliquis. Neuro/Muscular: No acute issues. Serial neuro exams. Renal: No acute issues. Strict I/O. Avoid nephrotoxins. Medically manage electrolytes. Trend Cr. Hypophosphatemia. Replete per ERT protocol. GI/Nutrition: NPO. TF via PEG per african history professor. Oropharyngeal dysphagia with history of aspiration. Sp PEG 09/2024. Endocrine: Pre-diabetes. A1c 5.5. Accuchecks q4 with ISS coverage. Goal BG <180. Heme/Onc: Anemia. Hemoglobin stable. Trend. 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 Managed by [facility] oncology. ID: Sepsis with acute organ dysfunction and shock. Secondary to aspiration. Infectious work up NTD. On Zosyn. Management of shock as above. Follow cultures. De-escalate as able. Prophylaxis: Famotidine. Eliquis. Other: Full code 35 minutes of critical time provided thus far today not including procedures. SUBJECTIVE: History Since Last Visit: On minimal norepinephrine gtt. No acute events overnight. Pending Lab and Radiology Results Order Current Status Urine Aerobic Culture In process Blood Culture Aerobic/Anaerobic Preliminary result Blood Culture Aerobic/Anaerobic Preliminary result Sputum Aerobic Culture Preliminary result (more content not included)... [facility] 11-18-2024 Plan of care note POC updated and continued Problem: Actual or potential alteration in health Goal: Absence of healthcare acquired conditions Outcome: Partially Met Goal: Knowledge of Interdisciplinary Plan of Care Outcome: Partially Met Goal: Knowledge of Enviroment Outcome: Partially Met Problem: Falls, Risk of Goal: Absence of falls Outcome: Partially Met Goal: Absence of physical injury Outcome: Partially Met Problem: Pain Goal: Reduced pain sensation Outcome: Partially Met Goal: Control of acute pain to acceptable level Outcome: Partially Met Goal: Able to cope with pain Outcome: Partially Met Goal: Able to achieve maximum level of physical functioning Outcome: Partially Met Goal: Able to achieve maximum level of psychosocial functioning Outcome: Partially Met Problem: Pressure Injury, Risk of Goal: Absence of pressure injury Outcome: Partially Met [facility] 11-18-2024 Consult note Associated Order (s): IP CONSULT TO DIETITIAN Nutrition Care Initial Assessment Reason for visit: Physician Consult: Tube Feeding Initiate and Manage Nutrition Diagnosis: Inadequate oral intake r/t inability to consume sufficient energy PO aeb NPO. Nutrition Intervention Initiate Enteral Nutrition Nutrition Prescription: Diet:Continue NPO Tube Feeding: EN from home: 3 cartons Boost VHC + 2 cartons Compleat Standard 1.4 @ 105mL/hr from 8P-6A. Flush with 30 mL h2o before/after cyclic rate. Tube Feeding Route:OG Nutrition Goals: Receive greater than 80% of rx'd EN volume Start Date:11/18/2024 Expected End Date:11/22/2024 Nutrition Education: Not appropriate due to clinical presentation and No needs at this time Assessment: Pertinent clinical information: Presents with septic shock pna. 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 PEG in place with history of dysphagia/aspiration. S/p PEG in September of 2024. 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 Chronic kidney disease (CKD) stage G1/A2, glomerular filtration rate (GFR) equal to or greater than 90 mL/min/1.73 square meter and albuminuria creatinine ratio between 30-299 mg/g COPD (chronic obstructive pulmonary disease) (HCC) ED (erectile dysfunction) Edema leg bilateral GERD (gastroesophageal reflux disease) Hepatic steatosis Hyperlipidemia Hypertension Insomnia Lung disorder Migraine without aura and without status migrainosus, not intractable 09/25/2023 Prediabetes Past Surgical History: Procedure Laterality Date ABDOMINAL SURGERY CATARACT EXTRACTION BILATERAL W/ ANTERIOR VITRECTOMY CATARACT EXTRACTION BILATERAL W/ ANTERIOR VITRECTOMY Bilateral CT COLONOSCOPY 03/25/2022 CT COLONOSCOPY LAPAROSCOPIC INGUINAL HERNIA REPAIR [address] Holder for tongue cancer PEG TUBE PLACEMENT 04/04/2023 VASECTOMY Height: 6' 1 Current weight: 87.1 kg (192 lb 0.3 oz) BMI Body mass index is 25.33 kg/m . Weight hx: Wt Readings from Last 10 Encounters: 11/18/24 87.1 kg (192 lb 0.3 oz) 11/15/24 84.2 kg (185 lb 9.6 oz) 11/09/24 84.6 kg (186 lb 9.6 oz) 09/14/24 84.1 kg (185 lb 6.4 oz) 08/11/24 80.7 kg (178 lb) 07/14/24 81.9 kg (180 lb 9.6 oz) 06/15/24 83.9 kg (185 lb) 06/07/24 83.7 kg (184 lb 8.4 oz) 06/07/24 81.6 kg (180 lb) 05/05/24 83.5 kg (184 lb) Significant Weight Change: No Current diet order: Diet: NPO Recent intake: Enteral Nutrition Current intake does not meet estimated needs. Barriers to adequate p.o. intakes: Dysphagia Nutrition Related Allergies/Intolerances: No Nutrition Related Allergies noted Cultural or Rastafari Dietary Needs :No Cultural or Rastafari Dietary needs noted Patient/family comments:Deferred: Pt sleeping. Spoke with . Will infuse HEN tonight but potentially switch to hospitals pump/ with HEN feed, 11/19. Difficulty Chewing or Swallowing: Yes Skin Integrity: Intact GI Function: WDL Fluid Status: WNL Physical Appearance: Unable to assess at this time Labs: Recent Labs 11/17/24185211/17/24200111/18/24334 NA 144 < > 144 K 3.8 < > 3.7 BICARB 27 -- 25 CL 102 < > 108 GLUCOSE 125* < > 149* BUN 28* -- 22 CREATININE 0.97 -- 0.83 ALBUMIN 4.4 -- -- LIPASE 10* -- -- < > = values in this interval not displayed. Recent Labs 11/17/24185211/17/24200111/18/24 0335 GLUCOSE 125* 117* 149* Lab Results Component Value Date HGBA1C 5.4 11/18/2024 Home Medications Reviewed: Yes Scheduled Meds: apixaban 5 mg Tube BID [START ON 11/19/2024] aspirin 81 mg Tube Daily [START ON 11/19/2024] azithromycin 250 mg Tube Once per day on Friday famotidine 20 mg Tube BID lispro insulin 0-15 Units Subcutaneous at bedtime insulin lispro 0-30 Units Subcutaneous Q4H DO piperacillin-tazobactam (ZOSYN) extended infusion 3.375 g Intravenous Q8H [START ON 11/19/2024] roflumilast 500 mcg Tube Daily senna-docusate 1 tablet Tube BID [START ON 11/19/2024] sertraline 50 mg Tube Daily sodium chloride (PF) 10 mL Intracatheter Q8H DO [Held by provider] tamsulosin 0.4 mg Oral Daily Continuous Infusions: norEPINEPHrine (LEVOPHED) infusion 2 mcg/min (11/18/24 1315) And VASOpressin (SHOCK/SEPSIS) infusion Stopped (11/17/24 2333) Nutrient Depleting Medications: Proton Pump Inhibitors (Chronic Use) Medications whose absorption may be altered by tube feeding: None Identified Estimated Energy Needs Total Energy Estimated Needs: [id number] Method for Estimating Needs: 25 kcal/kg Total Protein Estimated Needs: 105 Method for Estimating Needs: 1.2 gm/kg Margarita Cohen RD [facility] 11-18-2024 Consult note Formatting of th is note is different from the original. Date: 11/18/2024 Time: 12:22 PM Patient Name: Amy Sun Date of : 1950 Name of [facility] agency: Pending / Accepted (if [facility], include region) current confirmed Referrals sent to: (names of agencies) [facility] pharmacy: (name) Referral pending or accepted? For OPAT, TPN, or TF: (list) Referral order placed? Has script been sent? (Yes/no) [facility] Medication / frequency 3 cartons Boost VHC + 2 cartons Compleat Standard 1.4 @ 105mL/hr from 8P-6A. Flush with 30 mL h2o before/after cyclic rate. Will need new script if changes are made Line / tube PEG tube [facility] ([facility] created for the following services: [or waiting for ____ (i.e wound care)] [facility] Occupational Therapy Verify demographics (residential address) [address] [facility] [address] What is the primary number to reach you? [phone] Who is your family physician/primary care physician? Ulices Clark, DO Do you have a caregiver and/or teachable caregiver (list relationship, name & phone #)? Christa (Spouse) Are there any special precautions or safety concerns (isolation precautions, etc)? none Estimated Discharge Date (RONIT): tbd If discharge needs change, please reach out to liaison assigned on treatment team as [facility] is not notified of new consults once team is following. Thank you. [facility] 11-18-2024 Consult note Associated Order (s): IP CONSULT TO CARE MANAGEMENT Date: 11/18/2024 Time: 12:05 PM Patient Name: Amy Sun Date of : 1950 Reason for Consult: Discharge needs Discharge Plan Discussion: Assessment completed with patient and family at bedside. Patient is alert and oriented. No advance directives on file. Patient has a PCP. [facility] medicare. He is from home with spouse. He was independent prior. He was receiving home care services [facility]. Hub consult placed. Home oxygen and TF from [facility] [place]. Discharge Plan: Plan A: Home Health Care Services Plan A : Post Acute Patient Choice 1: [facility] Transportation Assessment and Background Information: Family aware of the patient's advance care planning wishes:: Yes Medication adherence problem:: No History of falls in last 6 months:: No Do you have any cultural/spiritual connections or beliefs that would impact how we deliver your care?: No Chronic pain:: No Advance Directives: Patient Support: Does Patient have a PCP?: Yes Living Arrangements: Spouse/significant other Type of Residence: Private residence (one story home) Support Systems: Family members Assistance Needed: Yes Current Home Equipment: Cane, Front-wheeled walker Caregiver Identified: Yes Caregiver Assessment: SDOH: [facility] 11-18-2024 Consult note Associated Order (s): IP CONSULT TO MANAGER NICU CRITICAL CARE CONSULT 11/18/2024 Patient: Amy Sun Date of : 1950 Site: [facility] Referring Provider: Refer to consult order in electronic medical record Provider: Azalia Christianson CNP ASSESSMENT/PLAN: Amy Sun 74 y.o. male with history of HTN, HLD, COPD, BPH, GERD, CKD, oropharyngeal cancer, dysphagia who was admitted on 11/17 with septic shock and pneumonia. Respiratory: COPD. Chronic hypoxemic respiratory failure. Chronic bronchiectasis secondary to chronic aspiration. PFT in 08/2023 with moderately severe obstruction with severe air trapping; mildly reduced DLCO and large response to bronchodilators. Anaphylaxis reactions to budesonide, revefenacin with intolerance to duoneb. Unable to tolerate nebulized saline due to facial numbness/throat reconstruction. Alpha 1 anti trypsin negative (204 on 09/2024 at ). Previous sputum culture on 10/04/2024 at grew E.Coli. Currently on Daliresp, Anora Ellipta as home maintenance medications. Managed by Dr. Madhu Adler at pulmonary. Start Vibratory PEP, Chest vest q6, Azithromycin MWF. Lobo Avelar and will have patient bring in own supply of Anora Ellipta given multiple anaphylactic reactions to pulmonary meds. Currently on 3L per nasal cannula. Goal sat 88-92%. Aspiration Pneumonia. Hx of chronic aspiration with PEG placed in 09/2024. Previous sputum culture in 09/[address] imaging with RUL/ML airspace disease. On Zosyn. Respiratory PCR, urine antigens pending. Check sputum culture, MRSA probe. On Zosyn/Vancomycin. Follow cultures. De-escalate as able. Cardiovascular: Shock, septic. BC NTD. Respiratory PCR and urine antigens pending. Check sputum culture, MRSA probe. On Zosyn/Vancomycin. Stop IV Azithromycin and transition to MWF dosing of azithromycin. On Norepinephrine at 11 mcgs. Goal MAP >65. Trend lactate. Hx of PE. CTA in 12/2023 with RLL segmental PE with heart strain. Eliquis on hold per primary. Would consider either bridging with heparin infusion or DVT prophylaxis. Defer to primary. Neuro/Muscular: No acute issues. Serial neuro exams. Renal: No acute issues. Strict I/O. Avoid nephrotoxins. Medically manage electrolytes. Trend Cr. GI/Nutrition: NPO. TF via PEG per african history professor. Oropharyngeal dysphagia with history of aspiration. Sp PEG 09/2024. Endocrine: Pre-diabetes. A1c 5.5. Accuchecks q4 with ISS coverage. Goal BG <180. Heme/Onc: Anemia. Hemoglobin stable. Trend. 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 Managed by [facility]. ID: Sepsis with acute organ dysfunction and shock. Secondary to aspiration. Follow blood, urine, sputum cultures, urine antigens, MRSA probe. On Zosyn/Vancomycin. Management of shock as above. Follow cultures. De-escalate as able. Prophylaxis: Famotidine. DVT prophylaxis/resuming Eliquis - defer to primary service. Other: Full code. 40 minutes of critical care time provided thus far today not including procedures. SUBJECTIVE: Chief Complaint/Reason for Visit: shortness of breath and fever History of Present Illness: Amy Sun is a 74 y.o. male presenting from ED with complaint of shortness of breath and fever. Pending Lab and Radiology Results Order Current Status MRSA DNA Amplified Probe In process Respiratory PCR Panel In process S. pneumoniae Urine Antigen In process Urine Aerobic Culture In process Blood Culture Aerobic/Anaerobic Preliminary result Blood Culture Aerobic/Anaerobic Preliminary result Interpretation of Testing: I personally reviewed the EKG, Chest X-ray, and CT chest and agree with the interpretation(s). Review of Systems: All other systems reviewed and negative other than HPI Past Medical History: Diagnosis Date Arthritis Asthma Benign prostatic hyperplasia Cancer (HCC) 2009 Tongue Chronic kidney disease (CKD) stage G1/A2, glomerular filtration rate (GFR) equal to or greater than 90 mL/min/1.73 square meter and albuminuria creatinine ratio between 30-299 mg/g COPD (chronic obstructive pulmonary disease) (HCC) ED (erectile dysfunction) Edema leg bilateral GERD (gastroesophageal reflux disease) Hepatic steatosis Hyperlipidemia Hypertension Insomnia Lung disorder Migraine without aura and without status migrainosus, not intractable 09/25/2023 Prediabetes Past Surgical History: Procedure Laterality Date ABDOMINAL SURGERY CATARACT EXTRACTION BILATERAL W/ ANTERIOR VITRECTOMY CATARACT EXTRACTION BILATERAL W/ ANTERIOR VITRECTOMY Bilateral CT COLONOSCOPY 03/25/[address]22 CT COLONOSCOPY LAPAROSCOPIC INGUINAL HERNIA REPAIR [address] Holder for tongue cancer PEG TUBE PLACEMENT 04/04/2023 VASECTOMY Family History Problem Relation Age of Onset Stroke Father Heart disease Father Coronary artery disease Father Diabetes Sister Coronary artery disease Brother Tobacco Use History[1] Additional History Comments: None Allergies: Budesonide, Revefenacin, and Ipratropium-albuterol Current Medications[2] Current HOME Medications: Prior to Admission Medications[3] Current HOSPITAL Medications: Current Hospital Medications[4] OBJECTIVE: Physical Examination: BP 108/70 (BP Location: Left arm, Patient Position: Lying) Pulse (!) 57 Temp 97.6 F (36.4 C) (Oral) Resp (!) 24 Ht 6' 1 Wt 87.1 kg (192 lb 0.3 oz) SpO2 94% BMI 25.33 kg/m Temp: [97.6 F (36.4 C)-101.8 F (38.8 C)] 97.6 F (36.4 C) Heart Rate: [57-95] 57 Resp: [16-29] 24 BP: (61-113)/(46-75) 108/70 SpO2 Readings from Last 1 Encounters: 11/18/24 94% Intake/Output Summary (Last 24 hours) at 11/18/2024 0831 Last data filed at 11/18/2024 0732 Gross per 24 hour Intake 1396.91 ml Output 1000 ml Net 396.91 ml Vital Signs Reviewed. Gen: Alert and oriented x 3, In no apparent distress HEENT: Head: Normocephalic, no lesions, without obvious abnormality. Pharynx: Dental Hygiene adequate. Normal buccal mucosa. Normal pharynx. Neck: nontender, full range of motion, no mass, no focal lymphadenopathy Cardio: regular rate and rhythm, no murmur, brisk capillary refill Resp: no tachypnea or accessory muscle use, right lung with rhonchi and rales Abd: soft, nontender, nondistended, no hepatosplenomegaly, no mass, normal bowel sounds MSK: Moves all four extremities spontaneously. Neuro: Grossly normal without focal findings Skin: no rashes, no jaundice Labs and Imaging: [x] Medications reviewed. [x] Labs reviewed. Pertinent findings noted: WBC 29 [x] Radiology reviewed. Pertinent findings noted: CXR, CTPA [] Pathology reviewed. Pertinent findings noted: Family Update/ Code Status: Full code Laboratory and Additional Data Reviewed: Reviewed 11/18/24 8:31 AM: Laboratory, Microbiology, Radiology, Cardiology, and Medications [1] Social History Tobacco Use Smoking Status Former Current packs/day: 0.00 Types: Cigarettes Start date: 1960 Quit date: 2008 Years since quittin.7 Passive exposure: Past Smokeless Tobacco Never [2] Current Facility-Administered Medications Medication Dose Route Frequency Provider Last Rate Last Admin acetaminophen (TYLENOL) solution 650 mg 650 mg Tube Q4H PRN Amy Frederick Jr., [facility],PharmD 650 mg at 11/18/24 0546 [START ON 11/19/2024] aspirin chewable tablet 81 mg 81 mg Tube Daily Madi Alaniz RP,PharmD azithromycin (ZITHROMAX) 500 mg in sodium chloride (NS) 0.9% 250 mL (vialmate) 500 mg Intravenous Q24H Caleb Nicolas MD famotidine (PEPCID) 40 mg/5 mL (8 mg/mL) suspension 20 mg 20 mg Tube BID Amy Frederick Jr., [facility],PharmD insulin lispro (AdmeLOG,HumaLOG) injection 0-15 Units 0-15 Units Subcutaneous at bedtime Sivakumar Arias DO insulin lispro (AdmeLOG,HumaLOG) injection 0-30 Units 0-30 Units Subcutaneous Q4H DO Sivakumar Arias DO ipratropium-albuteroL (DUO-NEB) 0.5-2.5 mg/3 ml nebulizer solution 3 mL 3 mL Inhalation Q6H PRN Sivakumar Arias DO lidocaine 10 mg/mL (1 %) injection 10 mL 10 mL Infiltration Once Antonio Fontaine, mometasone-formoterol (DULERA) 100-5 mcg/actuation inhaler 2 puff 2 puff Inhalation BID Sivakumar Arias DO naloxone (NARCAN) injection 0.1 mg 0.1 mg Intravenous PRN Caleb Nicolas MD And naloxone (NARCAN) injection 0.4 mg 0.4 mg Intravenous PRN Caleb Nicolas MD norepinephrine (LEVOPHED) 4 mg in sodium chloride 0.9% (NS) 250 mL infusion 0-100 mcg/min Intravenous Continuous Antonio Fontaine DO 41.3 mL/hr at 11/18/24 0807 11 mcg/min at 11/18/24 0807 And VASOpressin (PITRESSIN) 0.2 unit/mL infusion 0.03 Units/min Intravenous Continuous PRN Antonio Fontaine DO Held at 11/17/24 2333 piperacillin-tazobactam (ZOSYN) IVPB 3.375 g (premix) 3.375 g Intravenous Q8H Caleb Nicolas MD Stopped at 11/18/24 0727 [START ON 11/19/2024] roflumilast (DALIRESP) tablet 500 mcg 500 mcg Tube Daily Madi Alaniz RPh,PharmD senna-docusate (SENNA-S) 8.6-50 mg per tablet 1 tablet 1 tablet Tube BID Madi Alaniz RPh,PharmD [START ON 11/19/2024] sertraline (ZOLOFT) tablet 50 mg 50 mg Tube Daily Madi Alaniz RPh,PharmD sodium chloride (PF) (NS) flush 10 mL 10 mL Intracatheter Q8H DO Caleb Nicolas MD sodium chloride (PF) (NS) flush 5 mL 5 mL Intravenous PRN Antonio Fontaine DO And sodium chloride 0.9% (NS) 0-150 mL/hr Intravenous PRN Antonio Fontaine DO SUMAtriptan (IMITREX) tablet 50 mg 50 mg Tube Q2H PRN Madi Alaniz RPh,PharmD [Held by provider] tamsulosin (FLOMAX) 24 hr capsule 0.4 mg 0.4 mg Oral Daily Caleb Nicolas MD vancomycin (VANCOCIN) 1250 mg in sodium chloride 0.9% (NS) 250 mL IVPB 1,250 mg Intravenous Q18H Tasha Stoner RPh,PharmD Stopped at 11/18/24 0105 [3] No outpatient medications have been marked as taking for the 11/17/24 encounter (Hospital Encounter). [4] acetaminophen (TYLENOL) solution 650 mg, 650 mg, Tube, Q4H PRN [START ON 11/19/2024] aspirin chewable tablet 81 mg, 81 mg, Tube, Daily [START ON 11/19/2024] azithromycin (ZITHROMAX) tablet 250 mg, 250 mg, Oral, Once per day on Friday famotidine (PEPCID) 40 mg/5 mL (8 mg/mL) suspension 20 mg, 20 mg, Tube, BID insulin lispro (AdmeLOG,HumaLOG) injection 0-15 Units, 0-15 Units, Subcutaneous, at bedtime AND Notify physician, , , Until Discontinued insulin lispro (AdmeLOG,HumaLOG) injection 0-30 Units, 0-30 Units, Subcutaneous, Q4H DO ipratropium-albuteroL (DUO-NEB) 0.5-2.5 mg/3 ml nebulizer solution 3 mL, 3 mL, Inhalation, Q6H PRN lidocaine 10 mg/mL (1 %) injection 10 mL, 10 mL, Infiltration, Once naloxone (NARCAN) injection 0.1 mg, 0.1 mg, Intravenous, PRN AND Notify physician, , , Until Discontinued AND naloxone (NARCAN) injection 0.4 mg, 0.4 mg, Intravenous, PRN Nonformulary Request Form, , Inhalation, Daily norepinephrine (LEVOPHED) 4 mg in sodium chloride 0.9% (NS) 250 mL infusion, 0-100 mcg/min, Intravenous, Continuous AND VASOpressin (PITRESSIN) 0.2 unit/mL infusion, 0.03 Units/min, Intravenous, Continuous PRN piperacillin-tazobactam (ZOSYN) IVPB 3.375 g (premix), 3.375 g, Intravenous, Q8H [START ON 11/19/2024] roflumilast (DALIRESP) tablet 500 mcg, 500 mcg, Tube, Daily senna-docusate (SENNA-S) 8.6-50 mg per tablet 1 tablet, 1 tablet, Tube, BID [START ON 11/19/2024] sertraline (ZOLOFT) tablet 50 mg, 50 mg, Tube, Daily sodium chloride (PF) (NS) flush 10 mL, 10 mL, Intracatheter, Q8H DO [COMPLETED] Insert peripheral IV, , , Once AND Saline lock IV, , , Once AND sodium chloride (PF) (NS) flush 5 mL, 5 mL, Intravenous, PRN AND sodium chloride 0.9% (NS), 0-150 mL/hr, Intravenous, PRN SUMAtriptan (IMITREX) tablet 50 mg, 50 mg, Tube, Q2H PRN [Held by provider] tamsulosin (FLOMAX) 24 hr capsule 0.4 mg, 0.4 mg, Oral, Daily vancomycin (VANCOCIN) 1250 mg in sodium chloride 0.9% (NS) 250 mL IVPB, 1,250 mg, Intravenous, Q18H Cosigned by Red Ferrara MD at 11/18/2024 12:58 PM EDT Associated attestation - Red Ferrara MD - 11/18/2024 12:58 PM EDT I personally examined and interviewed the patient with the PROJECT FACILITATOR. I spent 40 minutes in the intensive care unit providing critical care services to Amy Sun today independent of procedures and other care providers. My time managing this critically ill patient included review of interval history, laboratories, radiology and consultation reports; performing a physical examination; discussing the patient with the multi-disciplinary team and managing life sustaining therapies to prevent imminent clinical deterioration, including managing mechanical ventilation for life threatening respiratory failure. SUBJECTIVE: Amy Sun is a 74yo male with history of tongue cancer dx in 2008 now s/p PEG. He has history of chronic aspiration and presented with sob and fever. CT showing RUL/RML pneumonia. In ED, noted to be hypoxic and hypotensive unresponsive to fluids. Started on norepi. MICU consulted for septic shock management. PHYSICAL EXAM: A&Ox3 CTAB RRR No edema DIAGNOSTIC STUDIES: CTA PULM ART AND CT ABD PELVIS WITH IV CONTRAST 11/17/24: 1. Right upper lobe and middle lobe airspace disease compatible with pneumonia. Mildly enlarged hilar and mediastinal lymph nodes likely reactive. Recommend follow-up to assure resolution. 2. Infrarenal abdominal aortic aneurysm. Recommend continued CT surveillance. 3. Findings suggestive of COPD. 4. Enlarged prostate. ASSESSMENT: Septic shock Aspiration pneumonia COPD Hx PE on Eliquis RECOMMENDATIONS: Wean norepi to MAP >65 Empiric broad-spectrum abx, de-escalate pending blood and sputum cx and MRSA probe Continue home COPD regimen Pulmonary hygiene Supplemental oxygen to maintain sats 88-92% Heparin gtt until Eliquis resumed [facility] 11-18-2024 Note HMS PROGRESS NOTE Patient name: Amy Sun Date of : 1950 Assessment and plan Amy Sun is a 74 y.o. male patient of Ulices Clark DO with history of Asthma, BPH, CKD, COPD, hyperlipidemia, hypertension, migraine, prediabetes, tongue cancer presented to [facility] on 11/17/2024 with shortness of breath. Possible aspiration pneumonia Septic shock POA Leukocytosis Acute on top of chronic hypoxic respiratory failure COPD, chronically on 2 L NC Lactic acidosis multifocal pneumonia Asthma Tachypnea and persistent hypotension on admission Concern for aspiration pneumonia Presented with emesis, has a PEG tube due to previous dysphagia tree-in-bud findings on on recent CT from 11/08. COVID, influenza negative, LA 3.0, WBC 29 CTA pulmonary artery and CT abdomen pelvis shows right upper and middle lobe pneumonia. MRSA negative Follow-up blood cultures, sputum culture, Continuous SpO2, telemetry, keep SpO2 between 88 and 92 Consult pulmonology, appreciate recommendation Continue ICS/LABA, Roflumilast, no need for steroid at this moment. DuoNeb as needed S/p vancomycin, continue Zosyn and azithromycin, de-escalate as soon as possible Replete electrolyte as needed keep k>4, Phos > 3, Mag >2 Squamous cell carcinoma of the tongue S/p PEG tube for dysphagia Not currently receiving treatment N.p.o. while requiring vasopressors Consult dietitian for reinitiation of PEG tube feeds once cleared for oral intake PE Eliquis 5mg BID 24hr Hypertension Dyslipidemia Home medication Cardura, will hold due to hypotension and shock Currently on no statin Prediabetes Last A1c 5.9, repeat A1c BG on admission 125 Will keep BG between 140 and 180 Okay for sliding scale BPH Hold Cardura and Flomax due to hypotension GERD Continue famotidine Migraine Depression Patient on sertraline, will continue Patient on sumatriptan and prophylactic Discharge planning Medically ready for discharge: no Patient and/or family has been notified they are expected to be medically stable for discharge on the following date: 11/21/2024 Patient requires continued hospitalization due to: Treatment of respiratory infection, monitoring respiratory status Discussed with the patient and/or family that the following is a potential discharge location, understanding that the final plan will depend on the patient's progress and shared decision-making: [facility] The following resources have been ordered to assist with discharge barriers: care management, PT, OT Quality measures DVT prophylaxis: eliquis Serna catheter: absent Code status Full Code Subjective Patient seen and examined today morning at bedside in the ICU. Somnolent, on 4 L NC, still on Levophed 9 akash. Complaining of mild chest pain, no fever overnight. Discussed with the daughter at bedside treatment plan and they was able to answer all her questions. Also discussed with the ICU team at bedside. Objective BP (!) 86/62 Pulse (!) 58 Temp 100 degrees F (37.8 degrees C) (Axillary) Resp (!) 23 Ht 6' 1 Wt 87.1 kg (192 lb 0.3 oz) SpO2 92% BMI 25.33 kg/m General appearance: somnolent; chronically ill appearing; in no acute distress HEENT: Head- normocephalic; Eyes- EOMI, sclera anicteric; Throat- mucous membranes moist Cardiovascular: regular rate and rhythm; normal S1, S2; no murmurs, rubs, clicks or gallops; peripheral edema absent Respiratory: Scattered rhonchi all over the chest on nasal cannula Abdomen: soft, non-tender, non-distended Neurological: oriented x 3; normal speech; no focal findings or movement disorder noted Musculoskeletal: no significant deformity or tenderness to palpation Skin: normal coloration Psych: normal mood and affect I spent 36minutes providing critical care services independent of procedures and other care providers. My time managing this critically ill patient included review of interval history, laboratories, radiology and consultation reports; performing a physical examination; discussing patient with the care team and managing life sustaining therapies to prevent imminent clinical deterioration. AUTHENTICATED BY SIVAKUMAR ARIAS, ON 11/18/2024 12:03:15 [facility] 11-18-2024 Plan of care note Plan of care initiated at this time. Problem: Actual or potential alteration in health Goal: Absence of healthcare acquired conditions Outcome: Partially Met Goal: Knowledge of Interdisciplinary Plan of Care Outcome: Partially Met Goal: Knowledge of Enviroment Outcome: Partially Met Problem: Falls, Risk of Goal: Absence of falls Outcome: Partially Met Goal: Absence of physical injury Outcome: Partially Met [facility] 11-17-2024 Procedure note Associated Ord er(s): Central Line Central Line Date/Time: 11/17/2024 10:56 PM Performed by: Antonio Fontaine DO Authorized by: Lisa Lance MD Written consent: obtained Consent given by: patient and spouse Indications: vascular access Anesthesia: local infiltration Anesthesia: Local Anesthetic: lidocaine 1% without epinephrine Anesthetic total: 7 mL Preparation: skin prepped with 2% chlorhexidine Sterile barriers: all five maximum sterile barriers used - cap, mask, sterile gown, sterile gloves, and large sterile sheet Hand hygiene: hand hygiene performed prior to central venous catheter insertion Patient position: Trendelenburg Catheter type: triple lumen Catheter size: 7.5 Fr Ultrasound guidance: yes Number of attempts: 2 attempts at left subclavian, 1 attempt at right internal jugular. Post-procedure: line sutured Assessment: no pneumothorax on x-ray, blood return through all ports, free fluid flow and placement verified by x-ray Patient tolerance: patient tolerated the procedure well with no immediate complications Comments: After discussion of risks and benefits, given patient's history of throat cancer and subsequent surgery, radiation and chemo with potential for scar tissue in the neck we elected to proceed with subclavian line placement. Unfortunately I was not able to place a guidewire after vascular access with left subclavian attempt. I then proceeded with ultrasound guided right internal jugular line placement which was successful on first attempt without complication. T [facility] 11-17-2024 History and physical note [facility] HISTORY AND PHYSICAL -- [facility] Patient name: Amy Sun Date of : 1950 Admission date: 11/17/2024 Physicians: Ulices Clark DO (Family); No ref. provider found (Referring) Amy Sun is a 74 y.o. male patient of Ulices Calrk DO with history of Asthma, BPH, CKD, COPD, hyperlipidemia, hypertension, migraine, prediabetes, tongue cancer presented to [facility] on 11/17/2024 with shortness of breath. Severe community-acquired pneumonia Possible aspiration pneumonia Patient presenting with tachypnea and persistent hypotension requiring vasopressors. Concern for aspiration pneumonia due to history of dysphagia requiring PEG tube placement, reported episode of emesis, history of aspiration pneumonia, and tree-in-bud findings on on recent CT from 11/08. COVID, influenza negative CTA pulmonary artery and CT abdomen pelvis shows right upper and middle lobe pneumonia. Follow-up blood cultures, Continuous SpO2, telemetry, Started Zosyn, vancomycin, azithromycin Septic Shock Present on admission: yes Etiology: CAP SIRS criteria: Respiratory rate greater than 20 or PACO2 less than 32mmHg, WBC greater than 12,000, less than 4,000, or greater than 10% bands Evidence of end organ dysfunction: Lactic acid greater than 2.0 Initial lactic acid: 3.0 Repeat lactic acid: pending Current antibiotic regimen: Zosyn, vancomycin, azithromycin Culture data: Blood cultures pending x 2 Vasopressors/steroids: norepinephrine Initial sepsis checklist: Lactate ordered [x] Blood cultures obtained [x] Antibiotics initiated [x] 30 cc/kg IV fluids given Acute hypoxic respiratory failure secondary to above COPD on 2 L only while sleeping at baseline Currently requiring 2 L nasal cannula while awake Titrate supplemental O2 to 88 to 92%. Hx of Squamous cell carcinoma of the tongue S/p PEG tube for dysphagia Not currently receiving treatment N.p.o. while requiring vasopressors Consult dietitian for reinitiation of PEG tube feeds once cleared for oral intake History of PE Resume home Eliquis 5mg BID 24hr post central line placement Admitted with the following risk variables: Acute Respiratory Failure, Pneumonia , and Shock. Residence prior to admission: house or apartment Quality measures DVT prophylaxis: SCDs Serna catheter: absent Medication reconciliation: verified Patient and/or family has been told expected day of discharge is: 2-3 days Potential social barriers to discharge include: none Code status Full Code; code status verified on 11/18/2024 with patient (capacity intact) Chief complaint Dyspnea History of present illness Amy Sun is a 74 y.[facility]. [facility] with history of Asthma, BPH, CKD, COPD, hyperlipidemia, hypertension, migraine, prediabetes, tongue cancer presented to [facility] on 11/17/2024 with shortness of breath. Per patient and spouse at bedside, the patient has been experiencing worsening dyspnea for the past few days which worsened acutely on the morning of admission. notes patient has also developed a fever, Tmax 102.3 and a pulse ox in the 70s. states patient was panting when off oxygen. Patient typically uses 2 L oxygen at night while sleeping. Right reports patient experienced 1 episode of nonbilious nonbloody emesis on the day of arrival. She states patient has a history of dysphagia and received a PEG tube earlier this year. Patient is currently receiving all of his nutrition through his PEG tube. Also reports a history of aspiration pneumonia, with the patient most recently hospitalized in June. past medical history 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 Chronic kidney disease (CKD) stage G1/A2, glomerular filtration rate (GFR) equal to or greater than 90 mL/min/1.73 square meter and albuminuria creatinine ratio between 30-299 mg/g COPD (chronic obstructive pulmonary disease) (HCC) ED (erectile dysfunction) Edema leg bilateral GERD (gastroesophageal reflux disease) Hepatic steatosis Hyperlipidemia Hypertension Insomnia Lung disorder Migraine without aura and without status migrainosus, not intractable 09/25/2023 Prediabetes Past surgical history Past Surgical History: Procedure Laterality Date ABDOMINAL SURGERY CATARACT EXTRACTION BILATERAL W/ ANTERIOR VITRECTOMY CATARACT EXTRACTION BILATERAL W/ ANTERIOR VITRECTOMY Bilateral CT COLONOSCOPY 03/25/[address]22 CT COLONOSCOPY LAPAROSCOPIC INGUINAL HERNIA REPAIR [address] Holder for tongue cancer PEG TUBE PLACEMENT 04/04/2023 VASECTOMY Family history Family History Problem Relation Age of Onset Stroke Father Heart disease Father Coronary artery disease Father Diabetes Sister Coronary artery disease Brother Social history Tobacco Use History[1] Social History Substance and Sexual Activity Alcohol Use Not Currently Social History Substance and Sexual Activity Drug Use Not Currently Allergy information I have reviewed the patient's allergies. Budesonide, Revefenacin, and Ipratropium-albuterol Home medications Home medications were reviewed. Review of systems All relevant systems have been reviewed and are negative except as noted in HPI or below Physical examination BP (!) 66/57 Pulse 67 Temp 97.7 F (36.5 C) (Oral) Resp (!) 26 SpO2 92% General appearance: alert; chronically ill appearing; in mild acute distress HEENT: Head- normocephalic; Eyes- EOMI, sclera anicteric; Throat- mucous membranes moist Cardiovascular: regular rate and rhythm; normal S1, S2; no murmurs, rubs, clicks or gallops; peripheral edema absent Respiratory: lungs clear to auscultation; without wheezes, rales or rhonchi; on nasal cannula Abdomen: soft, non-tender, non-distended Neurological: oriented x 3; normal speech; no focal findings or movement disorder noted Musculoskeletal: no significant deformity or tenderness to palpation Skin: normal coloration Psych: normal mood and affect [1] Social History Tobacco Use Smoking Status Former Current packs/day: 0.00 Types: Cigarettes Start date: 1960 Quit date: 2008 Years since quittin.7 Passive exposure: Past Smokeless Tobacco Never [facility] 11-17-2024 Note HMS HISTORY AND PHYS ICAL -- [facility] Patient name: Amy Sun Date of : 1950 Admission date: 11/17/2024 Physicians: Ulices Clark DO (Family); No ref. provider found (Referring) Amy Sun is a 74 y.o. male patient of Ulices Clark DO with history of Asthma, BPH, CKD, COPD, hyperlipidemia, hypertension, migraine, prediabetes, tongue cancer presented to [facility] on 11/17/2024 with shortness of breath. Severe community-acquired pneumonia Possible aspiration pneumonia Patient presenting with tachypnea and persistent hypotension requiring vasopressors. Concern for aspiration pneumonia due to history of dysphagia requiring PEG tube placement, reported episode of emesis, history of aspiration pneumonia, and tree-in-bud findings on on recent CT from 11/08. COVID, influenza negative CTA pulmonary artery and CT abdomen pelvis shows right upper and middle lobe pneumonia. Follow-up blood cultures, Continuous SpO2, telemetry, Started Zosyn, vancomycin, azithromycin Septic Shock Present on admission: yes Etiology: CAP SIRS criteria: Respiratory rate greater than 20 or PACO2 less than 32mmHg, WBC greater than 12,000, less than 4,000, or greater than 10% bands Evidence of end organ dysfunction: Lactic acid greater than 2.0 Initial lactic acid: 3.0 Repeat lactic acid: pending Current antibiotic regimen: Zosyn, vancomycin, azithromycin Culture data: Blood cultures pending x 2 Vasopressors/steroids: norepinephrine Initial sepsis checklist: Lactate ordered [x] Blood cultures obtained [x] Antibiotics initiated [x] 30 cc/kg IV fluids given Acute hypoxic respiratory failure secondary to above COPD on 2 L only while sleeping at baseline Currently requiring 2 L nasal cannula while awake Titrate supplemental O2 to 88 to 92%. Hx of Squamous cell carcinoma of the tongue S/p PEG tube for dysphagia Not currently receiving treatment N.p.o. while requiring vasopressors Consult dietitian for reinitiation of PEG tube feeds once cleared for oral intake History of PE Resume home Eliquis 5mg BID 24hr post central line placement Admitted with the following risk variables: Acute Respiratory Failure, Pneumonia , and Shock. Residence prior to admission: house or apartment Quality measures DVT prophylaxis: SCDs Serna catheter: absent Medication reconciliation: verified Patient and/or family has been told expected day of discharge is: 2-3 days Potential social barriers to discharge include: none Code status Full Code; code status verified on 11/18/2024 with patient (capacity intact) Chief complaint Dyspnea History of present illness Amy Sun is a 74 y.o. male patient of Ulices Clark DO with history of Asthma, BPH, CKD, COPD, hyperlipidemia, hypertension, migraine, prediabetes, tongue cancer presented to [facility] on 11/17/2024 with shortness of breath. Per patient and spouse at bedside, the patient has been experiencing worsening dyspnea for the past few days which worsened acutely on the morning of admission. notes patient has also developed a fever, Tmax 102.3 and a pulse ox in the 70s. states patient was panting when off oxygen. Patient typically uses 2 L oxygen at night while sleeping. Right reports patient experienced 1 episode of nonbilious nonbloody emesis on the day of arrival. She states patient has a history of dysphagia and received a PEG tube earlier this year. Patient is currently receiving all of his nutrition through his PEG tube. Also reports a history of aspiration pneumonia, with the patient most recently hospitalized in June. past medical history 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 Chronic kidney disease (CKD) stage G1/A2, glomerular filtration rate (GFR) equal to or greater than 90 mL/min/1.73 square meter and albuminuria creatinine ratio between 30-299 mg/g COPD (chronic obstructive pulmonary disease) (HCC) ED (erectile dysfunction) Edema leg bilateral GERD (gastroesophageal reflux disease) Hepatic steatosis Hyperlipidemia Hypertension Insomnia Lung disorder Migraine without aura and without status migrainosus, not intractable 09/25/2023 Prediabetes Past surgical history Past Surgical History: Procedure Laterality Date ABDOMINAL SURGERY CATARACT EXTRACTION BILATERAL W/ ANTERIOR VITRECTOMY CATARACT EXTRACTION BILATERAL W/ ANTERIOR VITRECTOMY Bilateral CT COLONOSCOPY 03/25/2022 CT COLONOSCOPY LAPAROSCOPIC INGUINAL HERNIA REPAIR [address]. Holder for tongue cancer PEG TUBE PLACEMENT 04/04/2023 VASECTOMY Family history Family History Problem Relation Age of Onset Stroke Father Heart disease Father Coronary artery disease Father Diabetes Sister Coronary artery disease Brother Social (more content not included)... [facility] 11-17-2024 History and physical note [facility] HISTORY AND PHYSICAL -- [facility] Patient name: Amy Sun Date of : 1950 Admission date: 11/17/2024 Physicians: Ulices Clark DO (Family); No ref. provider found (Referring) Amy Sun is a 74 y.o. male patient of Ulices Clark DO with history of Asthma, BPH, CKD, COPD, hyperlipidemia, hypertension, migraine, prediabetes, tongue cancer presented to [facility] on 11/17/2024 with shortness of breath. Severe community-acquired pneumonia Possible aspiration pneumonia Patient presenting with tachypnea and persistent hypotension requiring vasopressors. Concern for aspiration pneumonia due to history of dysphagia requiring PEG tube placement, reported episode of emesis, history of aspiration pneumonia, and tree-in-bud findings on on recent CT from 11/08. COVID, influenza negative CTA pulmonary artery and CT abdomen pelvis shows right upper and middle lobe pneumonia. Follow-up blood cultures, Continuous SpO2, telemetry, Started Zosyn, vancomycin, azithromycin Septic Shock Present on admission: yes Etiology: CAP SIRS criteria: Respiratory rate greater than 20 or PACO2 less than 32mmHg, WBC greater than 12,000, less than 4,000, or greater than 10% bands Evidence of end organ dysfunction: Lactic acid greater than 2.0 Initial lactic acid: 3.0 Repeat lactic acid: pending Current antibiotic regimen: Zosyn, vancomycin, azithromycin Culture data: Blood cultures pending x 2 Vasopressors/steroids: norepinephrine Initial sepsis checklist: Lactate ordered [x] Blood cultures obtained [x] Antibiotics initiated [x] 30 cc/kg IV fluids given Acute hypoxic respiratory failure secondary to above COPD on 2 L only while sleeping at baseline Currently requiring 2 L nasal cannula while awake Titrate supplemental O2 to 88 to 92%. Hx of Squamous cell carcinoma of the tongue S/p PEG tube for dysphagia Not currently receiving treatment N.p.o. while requiring vasopressors Consult dietitian for reinitiation of PEG tube feeds once cleared for oral intake History of PE Resume home Eliquis 5mg BID 24hr post central line placement Admitted with the following risk variables: Acute Respiratory Failure, Pneumonia , and Shock. Residence prior to admission: house or apartment Quality measures DVT prophylaxis: SCDs Serna catheter: absent Medication reconciliation: verified Patient and/or family has been told expected day of discharge is: 2-3 days Potential social barriers to discharge include: none Code status Full Code; code status verified on 11/18/2024 with patient (capacity intact) Chief complaint Dyspnea History of present illness Amy Sun is a 74 y.o. male patient of Ulices Clark DO with history of Asthma, BPH, CKD, COPD, hyperlipidemia, hypertension, migraine, prediabetes, tongue cancer presented to [facility] on 11/17/2024 with shortness of breath. Per patient and spouse at bedside, the patient has been experiencing worsening dyspnea for the past few days which worsened acutely on the morning of admission. notes patient has also developed a fever, Tmax 102.3 and a pulse ox in the 70s. states patient was panting when off oxygen. Patient typically uses 2 L oxygen at night while sleeping. Right reports patient experienced 1 episode of nonbilious nonbloody emesis on the day of arrival. She states patient has a history of dysphagia and received a PEG tube earlier this year. Patient is currently receiving all of his nutrition through his PEG tube. Also reports a history of aspiration pneumonia, with the patient most recently hospitalized in June. past medical history Past Medical History: Diagnosis Date Arthritis Asthma Benign prostatic hyperplasia Cancer (HCC) 2009 Tongue Chronic kidney disease (CKD) stage G1/A2, glomerular filtration rate (GFR) equal to or greater than 90 mL/min/1.73 square meter and albuminuria creatinine ratio between 30-299 mg/g COPD (chronic obstructive pulmonary disease) (HCC) ED (erectile dysfunction) Edema leg bilateral GERD (gastroesophageal reflux disease) Hepatic steatosis Hyperlipidemia Hypertension Insomnia Lung disorder Migraine without aura and without status migrainosus, not intractable 09/25/2023 Prediabetes Past surgical history Past Surgical History: Procedure Laterality Date ABDOMINAL SURGERY CATARACT EXTRACTION BILATERAL W/ ANTERIOR VITRECTOMY CATARACT EXTRACTION BILATERAL W/ ANTERIOR VITRECTOMY Bilateral CT COLONOSCOPY 03/25/2022 CT COLONOSCOPY LAPAROSCOPIC INGUINAL HERNIA REPAIR [address] Holder for tongue cancer PEG TUBE PLACEMENT 04/04/2023 VASECTOMY Family history Family History Problem Relation Age of Onset Stroke Father Heart disease Father Coronary artery disease Father Diabetes Sister Coronary artery disease Brother Social history Tobacco Use History[1] Social History Substance and Sexual Activity Alcohol Use Not Currently Social History Substance and Sexual Activity Drug Use Not Currently Allergy information I have reviewed the patient's allergies. Budesonide, Revefenacin, and Ipratropium-albuterol Home medications Home medications were reviewed. Review of systems All relevant systems have been reviewed and are negative except as noted in HPI or below Physical examination BP (!) 66/57 Pulse 67 Temp 97.7 F (36.5 C) (Oral) Resp (!) 26 SpO2 92% General appearance: alert; chronically ill appearing; in mild acute distress HEENT: Head- normocephalic; Eyes- EOMI, sclera anicteric; Throat- mucous membranes moist Cardiovascular: regular rate and rhythm; normal S1, S2; no murmurs, rubs, clicks or gallops; peripheral edema absent Respiratory: lungs clear to auscultation; without wheezes, rales or rhonchi; on nasal cannula Abdomen: soft, non-tender, non-distended Neurological: oriented x 3; normal speech; no focal findings or movement disorder noted Musculoskeletal: no significant deformity or tenderness to palpation Skin: normal coloration Psych: normal mood and affect [1] Social History Tobacco Use Smoking Status Former Current packs/day: 0.00 Types: Cigarettes Start date: 1960 Quit date: 2008 Years since quittin.7 Passive exposure: Past Smokeless Tobacco Never documented in this encounter [facility] 11-17-2024 Physician Emergency department Note Associated Order(s): EKG 12-lead PCP - Ulices Clark DO Chief Complaint Patient presents with Shortness of Breath HPI Kishor is a 74-year-old gentleman presenting here for evaluation of fever, shortness of breath, malaise, fatigue. Symptoms have come on over the last 24 hours. He has mostly dry cough. no recent antibiotics, travel or definite sick contacts. No vomiting. He has history of tongue cancer and feeding tube in place. MDM/COURSE I did personally review Amy's past medical history, surgical history, social history, as well as family history (when relevant). In this case, I also oversaw the his drug management by reviewing his medication list, allergy list, as well as the medications that I prescribed during the ED course and/or recommended as an out-patient (including possible OTC medications such as acetaminophen, NSAIDs , etc). 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 Oropharyngeal dysphagia 08/09/2022 Hypertension 09/25/2023 Gastroesophageal reflux disease 09/25/2023 Hyperlipidemia 09/25/2023 Secondary polycythemia 09/15/2014 Bilateral leg edema 09/25/2023 Centrilobular emphysema (HCC) 06/04/2023 Degenerative joint disease 09/25/2023 Benign prostatic hyperplasia with lower urinary tract symptoms 07/31/2016 S/P percutaneous endoscopic gastrostomy (PEG) tube placement (HCC) 09/25/2023 Anxiety and depression 09/25/2023 Migraine without aura and without status migrainosus, not intractable 09/25/2023 AAA (abdominal aortic aneurysm) 11/19/2023 Postnasal drip 11/22/2023 Hyponatremia 11/22/2023 Difficulty sleeping 11/22/2023 Left inguinal hernia 12/17/2023 Constipation 12/17/2023 Venous insufficiency 12/18/2023 Pulmonary embolus, right 12/22/2023 Pulmonary lesion, right 01/13/2024 History of aspiration pneumonia 06/20/2024 Chronic respiratory failure with hypoxia, on home oxygen therapy (HCC) 12/31/2023 Acute conjunctivitis of left eye 09/18/2024 Respiratory crackles of both lungs 09/18/2024 Memory loss 11/16/2024 Resolved Ambulatory Problems Diagnosis Date Noted Chronic obstructive pulmonary disease (HCC) 09/25/2023 Edema of lower extremity 09/25/2023 Vomiting 10/23/2023 Acute hypoxemic respiratory failure (HCC) 06/07/2024 Past Medical History: Diagnosis Date Arthritis Asthma Benign prostatic hyperplasia Cancer (HCC) 2008 Chronic kidney disease (CKD) stage G1/A2, glomerular filtration rate (GFR) equal to or greater than 90 mL/min/1.73 square meter and albuminuria creatinine ratio between 30-299 mg/g COPD (chronic obstructive pulmonary disease) (HCC) ED (erectile dysfunction) Edema leg GERD (gastroesophageal reflux disease) Hepatic steatosis Insomnia Lung disorder Prediabetes ED MEDICATIONS GIVEN: Medications sodium chloride 0.9 % (NS) infusion - ADS Override Pull ( Canceled Entry 11/17/24 1855) sodium chloride (PF) (NS) flush 5 mL (has no administration in time range) And sodium chloride 0.9% (NS) (has no administration in time range) norepinephrine (LEVOPHED) 4 mg in sodium chloride 0.9% (NS) 250 mL infusion (has no administration in time range) And VASOpressin (PITRESSIN) 0.2 unit/mL infusion (has no administration in time range) lactated ringers bolus 1,000 mL (has no administration in time range) cefTRIAXone (ROCEPHIN) IVPB 2 g (premix) (0 mg Intravenous Stopped 11/17/24 192) azithromycin (ZITHROMAX) 500 mg in sodium chloride (NS) 0.9% 250 mL (vialmate) (0 mg Intravenous Stopped 11/17/242035) sodium chloride 0.9% (NS) bolus 2,397 mL (0 mL Intravenous Stopped 11/17/242129) acetaminophen (TYLENOL) solution 1,000 mg (1,000 mg Tube Given 11/17/241925) sodium chloride (PF) (NS) 0.9 % contrast line flush 10 mL (10 mL Intravenous Given 11/17/242120) And sodium chloride (PF) (NS) 0.9 % contrast line flush 80 mL (80 mL Intravenous Given 11/17/242120) iopamidoL (ISOVUE-370) 370 mg iodine /mL (76 %) injection 75 mL (75 mL Intravenous Contrast Administered 11/17/242119) After reviewing the items above, I did look at previous medical documentation, such as recent hospitalizations, office visits, and/or recent consultations with PCP/specialist. SDOH: Another factor that I considered in Amy's care was his Social Determinants of Health (SDOH). During this ED encounter, he did NOT appear to have any significant issues identified. LAB TESTING: Labs were obtained during this encounter. Labs were compared to prior values lactic acid 3. Troponin 46, white blood cells 18 RADIOLOGY: I did consider radiological studies for Amy's care today. Radiology testing was notable for CT of the chest concerning for right middle lobe infiltrate on my independent review DIFFERENTIAL DIAGNOSES: Some general clinical impressions that I considered included pneumonia, sepsis, dehydration, viral illness ED Course as of 11/17/242200Nov 17, [id number] 1. Right upper lobe and middle lobe airspace disease compatible with pneumonia. Mildly enlarged hilar and mediastinal lymph nodes likely reactive. Recommend follow-up to assure resolution. 2. Infrarenal abdominal aortic aneurysm. Recommend continued CT surveillance. 3. Findings suggestive of COPD. 4. Enlarged prostate. [KR] ED Course User Index [KR] Lisa Lance MD ED COURSE: Patient is hypotensive and hypoxemic on arrival. He generally has nasal cannula oxygen only when he is sleeping but is requiring 3 to 4 L nasal cannula at this time. He is hypotensive with MAP of 65 on arrival. He is given IV fluid bolus, antibiotics for suspected pneumonia and cultures were obtained. 9:43 PM Initial 30 cc/kg IV fluid bolus is completed and patient's blood pressure quickly dropped down after fluid administration stopped. He remains awake and alert. he started on Levophed and 1 L additional IV fluid boluses ordered On this particular ED encounter, I did utilize shared decision making. After consideration of the risks of hospitalization such as nosocomial infections, falls, thromboembolic disease as well as being discharged(worsening condition or complications up to cardiopulmonary arrest) at this time the most appropriate disposition for Amy is Admitted Critical care time of 30 minutes exclusive of separately billable procedures performed in evaluation and management of pneumonia, septic shock . IMPRESSION 1. Septic shock (HCC) 2. Pneumonia of right lung due to infectious organism, unspecified part of lung 3. Acute hypoxemic respiratory failure (HCC) Past Medical History 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 Chronic kidney disease (CKD) stage G1/A2, glomerular filtration rate (GFR) equal to or greater than 90 mL/min/1.73 square meter and albuminuria creatinine ratio between 30-299 mg/g COPD (chronic obstructive pulmonary disease) (HCC) ED (erectile dysfunction) Edema leg bilateral GERD (gastroesophageal reflux disease) Hepatic steatosis Hyperlipidemia Hypertension Insomnia Lung disorder Migraine without aura and without status migrainosus, not intractable 09/25/2023 Prediabetes Past Surgical History Past Surgical History: Procedure Laterality Date ABDOMINAL SURGERY CATARACT EXTRACTION BILATERAL W/ ANTERIOR VITRECTOMY CATARACT EXTRACTION BILATERAL W/ ANTERIOR VITRECTOMY Bilateral CT COLONOSCOPY 03/25/2022 CT COLONOSCOPY LAPAROSCOPIC INGUINAL HERNIA REPAIR [address]. Holder for tongue cancer PEG TUBE PLACEMENT 04/04/2023 VASECTOMY Family History Family History Problem Relation Age of Onset Stroke Father Heart disease Father Coronary artery disease Father Diabetes Sister Coronary artery disease Brother Social History Social History[1] Allergies Allergies[2] Medications Active Home Medications Medication Sig Take Last Dose On Take Morning of Surgery Comment(s) apixaban (Eliquis) 5 mg Tab 1 (one) tablet (5 mg total) by Per G Tube route 2 (two) times a day . aspirin 81 MG EC tablet Take 1 (one) tablet (81 mg total) by mouth daily . nditwvf-bqfutxondugma-wstgzdfb (EXCEDRIN MIGRAINE) 250-250-65 mg per tablet Take 1 (one) tablet by mouth every 6 (six) hours as needed for pain . cyanocobalamin (vitamin B-12) 500 MCG tablet Take 1 (one) tablet (500 mcg total) by mouth daily . doxazosin (CARDURA) 4 MG tablet Take 1 (one) tablet (4 mg total) by mouth nightly . famotidine (PEPCID) 20 MG tablet Take 1 (one) tablet (20 mg total) by mouth 2 (two) times a day . fluticasone propionate (FLONASE) 50 mcg/actuation nasal spray Instill 2 (two) sprays into each nostril daily . Lactobacillus rhamnosus GG (CULTURELLE) 10 billion cell capsule Take 1 (one) capsule by mouth daily . roflumilast (DALIRESP) 500 mcg tablet sertraline (ZOLOFT) 50 MG tablet Take 1 (one) tablet (50 mg total) by mouth daily . SUMAtriptan (IMITREX) 50 MG tablet Take 1 (one) tablet (50 mg total) by mouth every 2 (two) hours as needed for migraine Max of 200 mg in 24hrs, do not treat more than 3 times a week . tamsulosin (FLOMAX) 0.4 mg capsule Take 1 (one) capsule (0.4 mg total) by mouth daily . umeclidinium-vilanteroL 62.5-25 mcg/actuation DsDv Inhale 1 Inhalation daily . Physical Exam Initial Vital Signs BP (!) 61/53 Pulse 69 Temp (!) 101.8 F (38.8 C) (Rectal) Resp (!) 26 SpO2 94% Vital Signs During ED Visit (as charted by nursing) Patient Vitals for the past 24 hrs: BP Temp Temp src Pulse Resp SpO2 11/17/242135 (!) 61/53 -- -- 69 (!) 26 94 % 11/17/242114 (!) 92/54 -- -- 66 (!) 23 95 % 11/17/242044 (!) 82/53 -- -- 68 (!) 28 94 % 11/17/242029 (!) 84/57 -- -- 70 (!) 27 94 % 11/17/241999 (!) 92/58 -- -- 72 (!) 24 95 % 11/17/241944 (!) 91/49 -- -- 72 (!) 23 96 % 11/17/24 193 (!) 83/54 -- -- 70 (!) 24 95 % 10/01/25 1900 (!) 69/59 -- -- 72 (!) 22 94 % 11/17/24 1856 -- (!) 101.8 F (38.8 C) Rectal -- -- -- 11/17/24 183 (!) 63/46 97.7 F (36.5 C) Oral 95 16 (!) 82 % 11/17/24 1834 -- 97.7 F (36.5 C) -- 94 (!) 21 (!) 81 % Physical Exam Vitals and nursing note reviewed. Constitutional: General: He is not in acute distress. Appearance: He is well-developed. HENT: Head: Normocephalic and atraumatic. Eyes: Extraocular Movements: Extraocular movements intact. Pupils: Pupils are equal, round, and reactive to light. Cardiovascular: Rate and Rhythm: Normal rate and regular rhythm. Musculoskeletal: General: No deformity or signs of injury. Cervical back: Normal range of motion and neck supple. Pulmonary: Comments: Patient with increased work of breathing with borderline distress prior to oxygen administration. Work of breathing improved with oxygen administration. He has scattered rhonchi and diminished breath sounds at the bases bilaterally. Abdominal: Palpations: Abdomen is soft. Tenderness: There is no abdominal tenderness. Skin: General: Skin is warm and dry. Neurological: General: No focal deficit present. Mental Status: He is alert and oriented to person, place, and time. Psychiatric: Mood and Affect: Mood normal. Behavior: Behavior normal. Labs Reviewed TROPONIN X 2 (NOW AND REPEAT IN 2 HOURS) - Abnormal; Notable for the following components: Result Value Troponin T 46 (*) All other components within normal limits PT/INR - Abnormal; Notable for the following components: Protime (PT) 16.5 (*) INR 1.3 (*) All other components within normal limits Narrative: During the induction phase of oral anticoagulation, the INR may not reflect the anticoagulation status of the patient. Therapeutic ranges for INR's are: Most clinical situations: INR 2.0-3.0 Mechanical Prosthetic Valve: INR 2.5-3.5 Critical: INR >5.0 LIPASE - Abnormal; Notable for the following components: Lipase 10 (*) All other components within normal limits BASIC METABOLIC PANEL - Abnormal; Notable for the following components: Glucose 125 (*) BUN 28 (*) BUN/Creatinine Ratio 28.9 (*) All other components within normal limits Narrative: [facility] has implemented the eGFR calculation approach that does not have a coefficient for race that conforms to the NKF-ASN Task Force Recommendations. POC VENOUS BLOOD GAS PANEL-PULM - RALS - Abnormal; Notable for the following components: pCO2, Darren 54.8 (*) Base Excess, Darren 4.6 (*) HCO3, Darren 31.5 (*) Lactic Acid 3.0 (*) O2 Sat, Darren 71.2 (*) Carboxyhemoglobin 2.8 (*) Sodium 146 (*) Glucose 117 (*) All other components within normal limits CBC WITH AUTO DIFFERENTIAL - Abnormal; Notable for the following components: WBC 18.12 (*) Neutrophils Abs 16.64 (*) Lymphocytes Abs 0.21 (*) Monocytes Abs 1.13 (*) All other components within normal limits HEPATIC FUNCTION PANEL - Normal BLOOD CULTURE AEROBIC/ANAEROBIC BLOOD CULTURE AEROBIC/ANAEROBIC URINE AEROBIC CULTURE COVID-19/INFLUENZA A,B MOLECULAR OBTAIN VENOUS BLOOD GASES AND PERFORM CBC AND DIFFERENTIAL Narrative: The following orders were created for panel order CBC w/ Diff. Procedure Abnormality Status --------- ------ CBC Auto Differential[[id number]] Abnormal Final result Please view results for these tests on the individual orders. TROPONIN X 2 (NOW AND REPEAT IN 2 HOURS) URINALYSIS LACTIC ACID, PLASMA Radiographic Imaging (if any) During ED Visit XR Chest 1 View Final Result 1. No acute abnormality. GJT/alt Workstation ID: [id number] CTA Pulm Art and CT Abd Pelvis with IV contrast (Results Pending) Medications Ordered/Given During ED Visit Medications sodium chloride 0.9 % (NS) infusion - ADS Override Pull ( Canceled Entry 11/17/24 1879) sodium chloride (PF) (NS) flush 5 mL (has no administration in time range) And sodium chloride 0.9% (NS) (has no administration in time range) norepinephrine (LEVOPHED) 4 mg in sodium chloride 0.9% (NS) 250 mL infusion (has no administration in time range) And VASOpressin (PITRESSIN) 0.2 unit/mL infusion (has no administration in time range) lactated ringers bolus 1,000 mL (has no administration in time range) cefTRIAXone (ROCEPHIN) IVPB 2 g (premix) (0 mg Intravenous Stopped 11/17/241925) azithromycin (ZITHROMAX) 500 mg in sodium chloride (NS) 0.9% 250 mL (vialmate) (0 mg Intravenous Stopped 11/17/242035) sodium chloride 0.9% (NS) bolus 2,397 mL (0 mL Intravenous Stopped 11/17/242129) acetaminophen (TYLENOL) solution 1,000 mg (1,000 mg Tube Given 11/17/241925) sodium chloride (PF) (NS) 0.9 % contrast line flush 10 mL (10 mL Intravenous Given 11/17/242120) And sodium chloride (PF) (NS) 0.9 % contrast line flush 80 mL (80 mL Intravenous Given 11/17/242120) iopamidoL (ISOVUE-370) 370 mg iodine /mL (76 %) injection 75 mL (75 mL Intravenous Contrast Administered 11/17/242119) EKG 12-lead Date/Time: 11/17/2024 9:42 PM Performed by: Antonio Fontaine DO Authorized by: Antonio Fontaine DO Interpreted by ED attending physician BPM: 73 Comments: EKG interpreted by me shows sinus rhythm at 73 with normal axis and intervals. Normal ST segments. Normal EKG. Antonio Fontaine DO 11/17/242142 [1] Social History Tobacco Use Smoking status: Former Current packs/day: 0.00 Types: Cigarettes Start date: 1960 Quit date: 2008 Years since quittin.7 Passive exposure: Past Smokeless tobacco: Never Vaping Use Vaping status: Never Used Substance Use Topics Alcohol use: Not Currently Drug use: Not Currently [2] Allergies Allergen Reactions Budesonide Anaphylaxis Throat constriction Revefenacin Anaphylaxis Throat reconstruction Ipratropium-Albuterol Other (See Comments) Right side of face gets numb [facility] 11-17-2024 Emergency department Note Associated Order(s): EKG 12-lead PCP - Ulices Clark DO Chief Complaint Patient presents with Shortness of Breath HPI Kishor is a 74-year-old gentleman presenting here for evaluation of fever, shortness of breath, malaise, fatigue. Symptoms have come on over the last 24 hours. He has mostly dry cough. no recent antibiotics, travel or definite sick contacts. No vomiting. He has history of tongue cancer and feeding tube in place. MDM/COURSE I did personally review Amy's past medical history, surgical history, social history, as well as family history (when relevant). In this case, I also oversaw the his drug management by reviewing his medication list, allergy list, as well as the medications that I prescribed during the ED course and/or recommended as an out-patient (including possible OTC medications such as acetaminophen, NSAIDs , etc). 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 Oropharyngeal dysphagia 08/09/2022 Hypertension 09/25/2023 Gastroesophageal reflux disease 09/25/2023 Hyperlipidemia 09/25/2023 Secondary polycythemia 09/15/2014 Bilateral leg edema 09/25/2023 Centrilobular emphysema (HCC) 06/04/2023 Degenerative joint disease 09/25/2023 Benign prostatic hyperplasia with lower urinary tract symptoms 07/31/2016 S/P percutaneous endoscopic gastrostomy (PEG) tube placement (HCC) 09/25/2023 Anxiety and depression 09/25/2023 Migraine without aura and without status migrainosus, not intractable 09/25/2023 AAA (abdominal aortic aneurysm) 11/19/2023 Postnasal drip 11/22/2023 Hyponatremia 11/22/2023 Difficulty sleeping 11/22/2023 Left inguinal hernia 12/17/2023 Constipation 12/17/2023 Venous insufficiency 12/18/2023 Pulmonary embolus, right 12/22/2023 Pulmonary lesion, right 01/13/2024 History of aspiration pneumonia 06/20/2024 Chronic respiratory failure with hypoxia, on home oxygen therapy (HCC) 12/31/2023 Acute conjunctivitis of left eye 09/18/2024 Respiratory crackles of both lungs 09/18/2024 Memory loss 11/16/2024 Resolved Ambulatory Problems Diagnosis Date Noted Chronic obstructive pulmonary disease (HCC) 09/25/2023 Edema of lower extremity 09/25/2023 Vomiting 10/23/2023 Acute hypoxemic respiratory failure (HCC) 06/07/2024 Past Medical History: Diagnosis Date Arthritis Asthma Benign prostatic hyperplasia Cancer (HCC) 2008 Chronic kidney disease (CKD) stage G1/A2, glomerular filtration rate (GFR) equal to or greater than 90 mL/min/1.73 square meter and albuminuria creatinine ratio between 30-299 mg/g COPD (chronic obstructive pulmonary disease) (HCC) ED (erectile dysfunction) Edema leg GERD (gastroesophageal reflux disease) Hepatic steatosis Insomnia Lung disorder Prediabetes ED MEDICATIONS GIVEN: Medications sodium chloride 0.9 % (NS) infusion - ADS Override Pull ( Canceled Entry 11/17/241854) sodium chloride (PF) (NS) flush 5 mL (has no administration in time range) And sodium chloride 0.9% (NS) (has no administration in time range) norepinephrine (LEVOPHED) 4 mg in sodium chloride 0.9% (NS) 250 mL infusion (has no administration in time range) And VASOpressin (PITRESSIN) 0.2 unit/mL infusion (has no administration in time range) lactated ringers bolus 1,000 mL (has no administration in time range) cefTRIAXone (ROCEPHIN) IVPB 2 g (premix) (0 mg Intravenous Stopped 11/17/241925) azithromycin (ZITHROMAX) 500 mg in sodium chloride (NS) 0.9% 250 mL (vialmate) (0 mg Intravenous Stopped 11/17/242035) sodium chloride 0.9% (NS) bolus 2,397 mL (0 mL Intravenous Stopped 11/17/242129) acetaminophen (TYLENOL) solution 1,000 mg (1,000 mg Tube Given 11/17/241925) sodium chloride (PF) (NS) 0.9 % contrast line flush 10 mL (10 mL Intravenous Given 11/17/242120) And sodium chloride (PF) (NS) 0.9 % contrast line flush 80 mL (80 mL Intravenous Given 11/17/242120) iopamidoL (ISOVUE-370) 370 mg iodine /mL (76 %) injection 75 mL (75 mL Intravenous Contrast Administered 11/17/242119) After reviewing the items above, I did look at previous medical documentation, such as recent hospitalizations, office visits, and/or recent consultations with PCP/specialist. SDOH: Another factor that I considered in Amy's care was his Social Determinants of Health (SDOH). During this ED encounter, he did NOT appear to have any significant issues identified. LAB TESTING: Labs were obtained during this encounter. Labs were compared to prior values lactic acid 3. Troponin 46, white blood cells 18 RADIOLOGY: I did consider radiological studies for Amy's care today. Radiology testing was notable for CT of the chest concerning for right middle lobe infiltrate on my independent review DIFFERENTIAL DIAGNOSES: Some general clinical impressions that I considered included pneumonia, sepsis, dehydration, viral illness ED Course as of 11/17/242200Nov 17, [id number] 1. Right upper lobe and middle lobe airspace disease compatible with pneumonia. Mildly enlarged hilar and mediastinal lymph nodes likely reactive. Recommend follow-up to assure resolution. 2. Infrarenal abdominal aortic aneurysm. Recommend continued CT surveillance. 3. Findings suggestive of COPD. 4. Enlarged prostate. [KR] ED Course User Index [KR] Lisa Lance MD ED COURSE: Patient is hypotensive and hypoxemic on arrival. He generally has nasal cannula oxygen only when he is sleeping but is requiring 3 to 4 L nasal cannula at this time. He is hypotensive with MAP of 65 on arrival. He is given IV fluid bolus, antibiotics for suspected pneumonia and cultures were obtained. 9:43 PM Initial 30 cc/kg IV fluid bolus is completed and patient's blood pressure quickly dropped down after fluid administration stopped. He remains awake and alert. he started on Levophed and 1 L additional IV fluid boluses ordered On this particular ED encounter, I did utilize shared decision making. After consideration of the risks of hospitalization such as nosocomial infections, falls, thromboembolic disease as well as being discharged(worsening condition or complications up to cardiopulmonary arrest) at this time the most appropriate disposition for Amy is Admitted Critical care time of 30 minutes exclusive of separately billable procedures performed in evaluation and management of pneumonia, septic shock . IMPRESSION 1. Septic shock (HCC) 2. Pneumonia of right lung due to infectious organism, unspecified part of lung 3. Acute hypoxemic respiratory failure (HCC) Past Medical History 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 Chronic kidney disease (CKD) stage G1/A2, glomerular filtration rate (GFR) equal to or greater than 90 mL/min/1.73 square meter and albuminuria creatinine ratio between 30-299 mg/g COPD (chronic obstructive pulmonary disease) (HCC) ED (erectile dysfunction) Edema leg bilateral GERD (gastroesophageal reflux disease) Hepatic steatosis Hyperlipidemia Hypertension Insomnia Lung disorder Migraine without aura and without status migrainosus, not intractable 09/25/2023 Prediabetes Past Surgical History Past Surgical History: Procedure Laterality Date ABDOMINAL SURGERY CATARACT EXTRACTION BILATERAL W/ ANTERIOR VITRECTOMY CATARACT EXTRACTION BILATERAL W/ ANTERIOR VITRECTOMY Bilateral CT COLONOSCOPY 03/25/2022 CT COLONOSCOPY LAPAROSCOPIC INGUINAL HERNIA REPAIR [address] Holder for tongue cancer PEG TUBE PLACEMENT 04/04/2023 VASECTOMY Family History Family History Problem Relation Age of Onset Stroke Father Heart disease Father Coronary artery disease Father Diabetes Sister Coronary artery disease Brother Social History Social History[1] Allergies Allergies[2] Medications Active Home Medications Medication Sig Take Last Dose On Take Morning of Surgery Comment(s) apixaban (Eliquis) 5 mg Tab 1 (one) tablet (5 mg total) by Per G Tube route 2 (two) times a day . aspirin 81 MG EC tablet Take 1 (one) tablet (81 mg total) by mouth daily . sjsikyu-woufztpnifuef-remviavy (EXCEDRIN MIGRAINE) 250-250-65 mg per tablet Take 1 (one) tablet by mouth every 6 (six) hours as needed for pain . cyanocobalamin (vitamin B-12) 500 MCG tablet Take 1 (one) tablet (500 mcg total) by mouth daily . doxazosin (CARDURA) 4 MG tablet Take 1 (one) tablet (4 mg total) by mouth nightly . famotidine (PEPCID) 20 MG tablet Take 1 (one) tablet (20 mg total) by mouth 2 (two) times a day . fluticasone propionate (FLONASE) 50 mcg/actuation nasal spray Instill 2 (two) sprays into each nostril daily . Lactobacillus rhamnosus GG (CULTURELLE) 10 billion cell capsule Take 1 (one) capsule by mouth daily . roflumilast (DALIRESP) 500 mcg tablet sertraline (ZOLOFT) 50 MG tablet Take 1 (one) tablet (50 mg total) by mouth daily . SUMAtriptan (IMITREX) 50 MG tablet Take 1 (one) tablet (50 mg total) by mouth every 2 (two) hours as needed for migraine Max of 200 mg in 24hrs, do not treat more than 3 times a week . tamsulosin (FLOMAX) 0.4 mg capsule Take 1 (one) capsule (0.4 mg total) by mouth daily . umeclidinium-vilanteroL 62.5-25 mcg/actuation DsDv Inhale 1 Inhalation daily . Physical Exam Initial Vital Signs BP (!) 61/53 Pulse 69 Temp (!) 101.8 F (38.8 C) (Rectal) Resp (!) 26 SpO2 94% Vital Signs During ED Visit (as charted by nursing) Patient Vitals for the past 24 hrs: BP Temp Temp src Pulse Resp SpO2 11/17/24 2136 (!) 61/53 -- -- 69 (!) 26 94 % 11/17/242114 (!) 92/54 -- -- 66 (!) 23 95 % 11/17/242044 (!) 82/53 -- -- 68 (!) 28 94 % 11/17/242029 (!) 84/57 -- -- 70 (!) 27 94 % 11/17/241999 (!) 92/58 -- -- 72 (!) 24 95 % 11/17/24 194 (!) 91/49 -- -- 72 (!) 23 96 % 11/17/24 1930 (!) 83/54 -- -- 70 (!) 24 95 % 11/17/24 1900 (!) 69/59 -- -- 72 (!) 22 94 % 11/17/24 1856 -- (!) 101.8 F (38.8 C) Rectal -- -- -- 11/17/24 1836 (!) 63/46 97.7 F (36.5 C) Oral 95 16 (!) 82 % 11/17/24 1834 -- 97.7 F (36.5 C) -- 94 (!) 21 (!) 81 % Physical Exam Vitals and nursing note reviewed. Constitutional: General: He is not in acute distress. Appearance: He is well-developed. HENT: Head: Normocephalic and atraumatic. Eyes: Extraocular Movements: Extraocular movements intact. Pupils: Pupils are equal, round, and reactive to light. Cardiovascular: Rate and Rhythm: Normal rate and regular rhythm. Musculoskeletal: General: No deformity or signs of injury. Cervical back: Normal range of motion and neck supple. Pulmonary: Comments: Patient with increased work of breathing with borderline distress prior to oxygen administration. Work of breathing improved with oxygen administration. He has scattered rhonchi and diminished breath sounds at the bases bilaterally. Abdominal: Palpations: Abdomen is soft. Tenderness: There is no abdominal tenderness. Skin: General: Skin is warm and dry. Neurological: General: No focal deficit present. Mental Status: He is alert and oriented to person, place, and time. Psychiatric: Mood and Affect: Mood normal. Behavior: Behavior normal. Labs Reviewed TROPONIN X 2 (NOW AND REPEAT IN 2 HOURS) - Abnormal; Notable for the following components: Result Value Troponin T 46 (*) All other components within normal limits PT/INR - Abnormal; Notable for the following components: Protime (PT) 16.5 (*) INR 1.3 (*) All other components within normal limits Narrative: During the induction phase of oral anticoagulation, the INR may not reflect the anticoagulation status of the patient. Therapeutic ranges for INR's are: Most clinical situations: INR 2.0-3.0 Mechanical Prosthetic Valve: INR 2.5-3.5 Critical: INR >5.0 LIPASE - Abnormal; Notable for the following components: Lipase 10 (*) All other components within normal limits BASIC METABOLIC PANEL - Abnormal; Notable for the following components: Glucose 125 (*) BUN 28 (*) BUN/Creatinine Ratio 28.9 (*) All other components within normal limits Narrative: [facility] has implemented the eGFR calculation approach that does not have a coefficient for race that conforms to the NKF-ASN Task Force Recommendations. POC VENOUS BLOOD GAS PANEL-PULM - RALS - Abnormal; Notable for the following components: pCO2, Darren 54.8 (*) Base Excess, Darren 4.6 (*) HCO3, Darren 31.5 (*) Lactic Acid 3.0 (*) O2 Sat, Adrren 71.2 (*) Carboxyhemoglobin 2.8 (*) Sodium 146 (*) Glucose 117 (*) All other components within normal limits CBC WITH AUTO DIFFERENTIAL - Abnormal; Notable for the following components: WBC 18.12 (*) Neutrophils Abs 16.64 (*) Lymphocytes Abs 0.21 (*) Monocytes Abs 1.13 (*) All other components within normal limits HEPATIC FUNCTION PANEL - Normal BLOOD CULTURE AEROBIC/ANAEROBIC BLOOD CULTURE AEROBIC/ANAEROBIC URINE AEROBIC CULTURE COVID-19/INFLUENZA A,B MOLECULAR OBTAIN VENOUS BLOOD GASES AND PERFORM CBC AND DIFFERENTIAL Narrative: The following orders were created for panel order CBC w/ Diff. Procedure Abnormality Status --------- ------ CBC Auto Differential[[id number]] Abnormal Final result Please view results for these tests on the individual orders. TROPONIN X 2 (NOW AND REPEAT IN 2 HOURS) URINALYSIS LACTIC ACID, PLASMA Radiographic Imaging (if any) During ED Visit XR Chest 1 View Final Result 1. No acute abnormality. GJT/alt Workstation ID: [id number] CTA Pulm Art and CT Abd Pelvis with IV contrast (Results Pending) Medications Ordered/Given During ED Visit Medications sodium chloride 0.9 % (NS) infusion - ADS Override Pull ( Canceled Entry 11/17/241854) sodium chloride (PF) (NS) flush 5 mL (has no administration in time range) And sodium chloride 0.9% (NS) (has no administration in time range) norepinephrine (LEVOPHED) 4 mg in sodium chloride 0.9% (NS) 250 mL infusion (has no administration in time range) And VASOpressin (PITRESSIN) 0.2 unit/mL infusion (has no administration in time range) lactated ringers bolus 1,000 mL (has no administration in time range) cefTRIAXone (ROCEPHIN) IVPB 2 g (premix) (0 mg Intravenous Stopped 11/17/241925) azithromycin (ZITHROMAX) 500 mg in sodium chloride (NS) 0.9% 250 mL (vialmate) (0 mg Intravenous Stopped 11/17/242035) sodium chloride 0.9% (NS) bolus 2,397 mL (0 mL Intravenous Stopped 11/17/242129) acetaminophen (TYLENOL) solution 1,000 mg (1,000 mg Tube Given 11/17/241925) sodium chloride (PF) (NS) 0.9 % contrast line flush 10 mL (10 mL Intravenous Given 11/17/242120) And sodium chloride (PF) (NS) 0.9 % contrast line flush 80 mL (80 mL Intravenous Given 11/17/242120) iopamidoL (ISOVUE-370) 370 mg iodine /mL (76 %) injection 75 mL (75 mL Intravenous Contrast Administered 11/17/242119) EKG 12-lead Date/Time: 11/17/2024 9:42 PM Performed by: Antonio Fontaine DO Authorized by: Antonio Fontaine DO Interpreted by ED attending physician BPM: 73 Comments: EKG interpreted by me shows sinus rhythm at 73 with normal axis and intervals. Normal ST segments. Normal EKG. Antonio Fontaine DO 11/17/242142 [1] Social History Tobacco Use Smoking status: Former Current packs/day: 0.00 Types: Cigarettes Start date: 1960 Quit date: 2008 Years since quittin.7 Passive exposure: Past Smokeless tobacco: Never Vaping Use Vaping status: Never Used Substance Use Topics Alcohol use: Not Currently Drug use: Not Currently [2] Allergies Allergen Reactions Budesonide Anaphylaxis Throat constriction Revefenacin Anaphylaxis Throat reconstruction Ipratropium-Albuterol Other (See Comments) Right side of face gets numb Pt arrives to the ED via triage for fever and Sob that started today. Pt's family states that he was at a doctors appointment today and was feeling fine but he developed a fever later in the day and is now SOB. Pt has a feeding tube a hx of cancer. documented in this encounter [facility] 11-17-2024 Emergency department Triage note Pt arrives to the ED via triage for fever and Sob that started today. Pt's family states that he was at a doctors appointment today and was feeling fine but he developed a fever later in the day and is now SOB. Pt has a feeding tube a hx of cancer. [facility] 11-17-2024 Instructions Kaushik Whitfield MD - 11/17/2024 10:26 AM EDT Checks of blood tests for vitamin B12, folic acid and amyloid biomarker which may be done today. Will schedule brain MRI. Continue sertraline 50 mg daily and monitor for any worsening anxiety and depression. May continue vitamin B12 500 mcg daily. Keep mentally and physically active. Keep socially engage. Monitor cognitive function, daily activities, or behavioral changes. Monitor for hallucination and delusion. Caution with driving or operating motor vehicles. [place] safety precautions at home. I will see him for follow-up visit around 6 months. documented in this encounter [facility] 11-17-2024 History of Present illness Narrative Neurology Inpatient Notes [facility] [place] [phone] (phone)/[phone] (fax) Patient: Amy Sun Date of : 1950 Primary Care Provider: Ulices Clark, Assessment/Plan: Patient with cognitive impairment affecting short-term long-term memory since 2022. He remains independent with activities of daily living. Confounding factors include history of anxiety and depression. He has been using sertraline 50 mg daily which has helped. He also has hearing impairment worse after his radiation surgery which may also affect cognitive function. Although I did not check brain MRI, vitamin B12 and MMA amyloid biomarker. Will defer cholinesterase inhibitor agent at this time. Labs/Imaging/Ancillary test: BUN is 32. Creatinine was normal. Serum sodium is 145. Potassium was normal. CBC was unremarkable. TSH was normal. LDL is 109. VLDL is 29. Impression: Mild cognitive impairment Hearing impairment History of tongue cancer 2009 status post surgery and radiation therapy. Oropharyngeal dysphagia secondary to radiation therapy complication status post PEG tube placement March 2024 Migraine headache BPH Abdominal aortic aneurysm Anxiety and depression Suggestion: Checks of blood tests for vitamin B12, folic acid and amyloid biomarker which may be done today. Will schedule brain MRI. Continue sertraline 50 mg daily and monitor for any worsening anxiety and depression. May continue vitamin B12 500 mcg daily. May continue to use sumatriptan and Excedrin for migraine abortive medication limiting it to less than 2 to 3 days/week to prevent analgesic rebound headache. Keep mentally and physically active. Keep socially engage. Monitor cognitive function, daily activities, or behavioral changes. Monitor for hallucination and delusion. Caution with driving or operating motor vehicles. [place] safety precautions at home. I will see him for follow-up visit around 6 months. I have personally reviewed/visualized the patient's images, as documented above. I have personally reviewed the patient's labs, procedure and ancillary testing as listed above. Impression, plan and suggestions was discussed with the patient/family/caregivers. Questions and concerns were discussed and addressed. This note was created in part using a speech-recognition software. Timed code: 47 minutes I personally spent the above time on this encounter today which includes time preparation to see the patient (reviewing previous history, notes, exam, test, procedure, and medications); Obtaining history from the patient/family/caregivers; performing face to face evaluation and examination; ordering medications, tests, or procedures; referring and communicating with other healthcare professionals; update, counseling and education of the patient/family/caregiver; independently interpreting results (Tests, labs, imaging) and communicating results to the patient/family/caregiver; coordination of care; documenting clinical information in the electronic and other health records. G2211- Patient with serious/complex condition needing longitudinal follow up. Subjective (CC/HPI): Patient is a 74-year-old male who came for neurological evaluation accompanied by his . noticed some cognitive impairment affecting short-term memory and some long-term memory since 2022. He remains independent with activities of daily living. He drives and golf without problem. His takes care of home finances and his medication. He has history of anxiety and depression and has been on sertraline 50 mg daily. No hallucination or delusion. No history of head injury, TIA, stroke, or seizures. Has history of lymphadenopathy and eventually diagnosed to have left cancer back in 2008. He underwent chemo and radiation therapy. After surgery and chemoradiation therapy, he has decreased hearing on both the ears needing hearing aid. He also developed oropharyngeal dysphagia and eventually needing PEG tube placement. There is no history of head injury, TIA, stroke, or seizures. He has history of chronic migraine and described occipital throbbing headache with mild nausea relieved by sleep without any visual symptoms, photophobia or phonophobia. Patient has been using sumatriptan and Excedrin. Past medical history include: Hypertension, hyperlipidemia, GERD, degenerative joint disease, COPD, BPH, insomnia, thyroid cancer with pharyngeal esophageal dysphagia status post PEG tube placement. Social history: Former smoker. Goal. Family history: Cardiac disease, stroke, and diabetes. ROS: All systems reviewed and negative except pertinent positives and negatives documented in the HPI and below. Objective: BP 102/68 (BP Location: Right arm, Patient Position: Sitting, BP Cuff Size: Adult) Pulse 60 Resp 16 SpO2 (!) 89% Patient awake and alert. MMSE: 27/30. Patient is oriented. Attention and comprehension were intact. Behavior is appropriate. Follows simple commands. Speech is dysarthric but understandable.. Language is intact. Pupils are 4 mm equally reactive to light. No ptosis, nystagmus, or gaze deviation. Extraocular muscles intact. Face is symmetrical. Hearing is grossly impaired. Gross strength is intact with normal muscle tone and bulk. No muscle fasciculations. No tremors or abnormal movements. documented in this encounter [facility] 11-17-2024 Note Neurology Inpatient Notes [facility] [place] [phone] (phone)/[phone] (fax) Patient: Amy Sun Date of : 1950 Primary Care Provider: Ulices Clark, DO Assessment/Plan: Patient with cognitive impairment affecting short-term long-term memory since 2022. He remains independent with activities of daily living. Confounding factors include history of anxiety and depression. He has been using sertraline 50 mg daily which has helped. He also has hearing impairment worse after his radiation surgery which may also affect cognitive function. Although I did not check brain MRI, vitamin B12 and MMA amyloid biomarker. Will defer cholinesterase inhibitor agent at this time. Labs/Imaging/Ancillary test: BUN is 32. Creatinine was normal. Serum sodium is 145. Potassium was normal. CBC was unremarkable. TSH was normal. LDL is 109. VLDL is 29. Impression: Mild cognitive impairment Hearing impairment History of tongue cancer 2009 status post surgery and radiation therapy. Oropharyngeal dysphagia secondary to radiation therapy complication status post PEG tube placement March 2024 Migraine headache BPH Abdominal aortic aneurysm Anxiety and depression Suggestion: Checks of blood tests for vitamin B12, folic acid and amyloid biomarker which may be done today. Will schedule brain MRI. Continue sertraline 50 mg daily and monitor for any worsening anxiety and depression. May continue vitamin B12 500 mcg daily. May continue to use sumatriptan and Excedrin for migraine abortive medication limiting it to less than 2 to 3 days/week to prevent analgesic rebound headache. Keep mentally and physically active. Keep socially engage. Monitor cognitive function, daily activities, or behavioral changes. Monitor for hallucination and delusion. Caution with driving or operating motor vehicles. [place] safety precautions at home. I will see him for follow-up visit around 6 months. I have personally reviewed/visualized the patient's images, as documented above. I have personally reviewed the patient's labs, procedure and ancillary testing as listed above. Impression, plan and suggestions was discussed with the patient/family/caregivers. Questions and concerns were discussed and addressed. This note was created in part using a speech-recognition software. Timed code: 47 minutes I personally spent the above time on this encounter today which includes time preparation to see the patient (reviewing previous history, notes, exam, test, procedure, and medications); Obtaining history from the patient/family/caregivers; performing face to face evaluation and examination; ordering medications, tests, or procedures; referring and communicating with other healthcare professionals; update, counseling and education of the patient/family/caregiver; independently interpreting results (Tests, labs, imaging) and communicating results to the patient/family/caregiver; coordination of care; documenting clinical information in the electronic and other health records. G2211- Patient with serious/complex condition needing longitudinal follow up. Subjective (CC/HPI): Patient is a 74-year-old male who came for neurological evaluation accompanied by his . noticed some cognitive impairment affecting short-term memory and some long-term memory since 2022. He remains independent with activities of daily living. He drives and golf without problem. His takes care of home finances and his medication. He has history of anxiety and depression and has been on sertraline 50 mg daily. No hallucination or delusion. No history of head injury, TIA, stroke, or seizures. Has history of lymphadenopathy and eventually diagnosed to have left cancer back in 2008. He underwent chemo and radiation therapy. After surgery and chemoradiation therapy, he has decreased hearing on both the ears needing hearing aid. He also developed oropharyngeal dysphagia and eventually needing PEG tube placement. There is no history of head injury, TIA, stroke, or seizures. He has history of chronic migraine and described occipital throbbing headache with mild nausea relieved by sleep without any visual symptoms, photophobia or phonophobia. Patient has been using sumatriptan and Excedrin. Past medical history include: Hypertension, hyperlipidemia, GERD, degenerative joint disease, COPD, BPH, insomnia, thyroid cancer with pharyngeal esophageal dysphagia status post PEG tube placement. Social history: Former smoker. Goal. Family history: Cardiac disease, stroke, and diabetes. ROS: All systems reviewed and negative except pertinent positives and negatives documented in the HPI and below. Objective: BP 102/68 (BP Location: Right arm, Patient Position: Sitting, BP Cuff Size: Adult) Pulse 60 Resp 16 SpO2 (!) 8 (more content not included)... [facility] 11-16-2024 Evaluation + Plan note Associated Problem(s): Chronic respiratory failure with hypoxia, on home oxygen therapy (HCC) On 2 L NC overnight. Continue. [facility] 11-16-2024 Miscellaneous Notes Associated Problem(s): Chronic respiratory failure with hypoxia, on home oxygen therapy (HCC) On 2 L NC overnight. Continue. Associated Problem(s): Memory loss Difficulty with word finding, losing items, difficulty expressing himself. Chronic migraine headaches. CT head without contrast 12/2023 with chronic microvascular changes and mild cerebral and cerebellar atrophy. - Referred to neurology for evaluation Associated Problem(s): AAA (abdominal aortic aneurysm) Last visualized on CT abdomen pelvis 05/2024, measuring 3.1 cm. We are monitoring annually with ultrasound or CT scan. documented in this encounter [facility] 11-16-2024 Evaluation + Plan note Associated Problem(s): Memory loss Difficulty with word finding, losing items, difficulty expressing himself. Chronic migraine headaches. CT head without contrast 12/2023 with chronic microvascular changes and mild cerebral and cerebellar atrophy. - Referred to neurology for evaluation [facility] 11-16-2024 Evaluation + Plan note Associated Problem(s): AAA (abdominal aortic aneurysm) Last visualized on CT abdomen pelvis 05/2024, measuring 3.1 cm. We are monitoring annually with ultrasound or CT scan. [facility] 11-15-2024 History of Present illness Narrative Subjective Patient ID: Amy Sun is a 74 y.o. male. Chief Complaint Patient presents with URI POSSIBLE NOT SICK YET BUT PT SPOUSE HAS ONE AND IS ON ANTIBOTICS HPI Amy is a 74 year old male that comes to office with with concerns increased sputum an cough. Patient tells me he has had productive cough for 2 years but notes slightly worse recently. Denies sinus pain, rhinorrhea, fever, chills, body aches, SOB. He has a PMH of HTN, HLD, GERD, BPH, DJD, COPD, hepatic steatosis, insomnia, former tobacco use and tongue CA, pharyngoesophageal dysphagia s/p PEG tube placement. brings concerns as she is on day 3-4 of symptoms and is on antibiotic, she is concerned with his history of PNA that he may develop. The following portions of the patient's history were reviewed and updated as appropriate: allergies, current medications, past family history, past medical history, past social history, past surgical history, and problem list. 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 Chronic kidney disease (CKD) stage G1/A2, glomerular filtration rate (GFR) equal to or greater than 90 mL/min/1.73 square meter and albuminuria creatinine ratio between 30-299 mg/g COPD (chronic obstructive pulmonary disease) (HCC) ED (erectile dysfunction) Edema leg bilateral GERD (gastroesophageal reflux disease) Hepatic steatosis Hyperlipidemia Hypertension Insomnia Migraine without aura and without status migrainosus, not intractable 09/25/2023 Prediabetes Past Surgical History: Procedure Laterality Date ABDOMINAL SURGERY CATARACT EXTRACTION BILATERAL W/ ANTERIOR VITRECTOMY CATARACT EXTRACTION BILATERAL W/ ANTERIOR VITRECTOMY Bilateral CT COLONOSCOPY 03/25/2022 CT COLONOSCOPY LAPAROSCOPIC INGUINAL HERNIA REPAIR [address] Holder for tongue cancer PEG TUBE PLACEMENT 04/04/2023 VASECTOMY Social History[1] Family History Problem Relation Age of Onset Stroke Father Heart disease Father Coronary artery disease Father Diabetes Sister Coronary artery disease Brother Allergies[2] Outpatient Medications as of 11/15/2024 Medication Sig apixaban (Eliquis) 5 mg Tab 1 (one) tablet (5 mg total) by Per G Tube route 2 (two) times a day . aspirin 81 MG EC tablet Take 1 (one) tablet (81 mg total) by mouth daily . sywprat-gvnqroliehxlp-kchltsii (EXCEDRIN MIGRAINE) 250-250-65 mg per tablet Take 1 (one) tablet by mouth every 6 (six) hours as needed for pain . cyanocobalamin (vitamin B-12) 500 MCG tablet Take 1 (one) tablet (500 mcg total) by mouth daily . doxazosin (CARDURA) 4 MG tablet Take 1 (one) tablet (4 mg total) by mouth nightly . famotidine (PEPCID) 20 MG tablet Take 1 (one) tablet (20 mg total) by mouth 2 (two) times a day . fluticasone propionate (FLONASE) 50 mcg/actuation nasal spray Instill 2 (two) sprays into each nostril daily . Lactobacillus rhamnosus GG (CULTURELLE) 10 billion cell capsule Take 1 (one) capsule by mouth daily . roflumilast (DALIRESP) 500 mcg tablet sertraline (ZOLOFT) 50 MG tablet Take 1 (one) tablet (50 mg total) by mouth daily . SUMAtriptan (IMITREX) 50 MG tablet Take 1 (one) tablet (50 mg total) by mouth every 2 (two) hours as needed for migraine Max of 200 mg in 24hrs, do not treat more than 3 times a week . umeclidinium-vilanteroL 62.5-25 mcg/actuation DsDv Inhale 1 Inhalation daily . celecoxib (ELYXYB) 120 mg/4.8 mL (25 mg/mL) Soln Take 120 mg per G-tube daily . (Patient not taking: Reported on 11/15/2024 .) tamsulosin (FLOMAX) 0.4 mg capsule Take 1 (one) capsule (0.4 mg total) by mouth daily . (Patient not taking: Reported on 11/15/2024 .) tiotropium (SPIRIVA) [address] 1 (one) capsule (18 mcg total) into inhaler and inhale daily . (Patient not taking: Reported on 11/15/2024 .) Review of Systems Objective BP 120/69 (BP Location: Left arm, Patient Position: Sitting, BP Cuff Size: Adult) Pulse (!) 54 Temp 98.2 F (36.8 C) (Oral) Resp 18 Wt 84.2 kg (185 lb 9.6 oz) SpO2 90% BMI 24.49 kg/m Physical Exam Constitutional: General: He is not in acute distress. Appearance: He is not ill-appearing or toxic-appearing. HENT: Right Ear: Tympanic membrane, ear canal and external ear normal. Left Ear: Tympanic membrane, ear canal and external ear normal. Ears: Comments: Bilateral hearing aids Nose: No congestion or rhinorrhea. Mouth/Throat: Mouth: Mucous membranes are moist. Tongue: No lesions. Palate: No lesions. Pharynx: Oropharynx is clear. Uvula midline. Postnasal drip present. No pharyngeal swelling, oropharyngeal exudate, posterior oropharyngeal erythema or uvula swelling. Tonsils: No tonsillar exudate. Eyes: Extraocular Movements: Extraocular movements intact. Conjunctiva/sclera: Conjunctivae normal. Cardiovascular: Rate and Rhythm: Normal rate and regular rhythm. Pulmonary: Effort: Pulmonary effort is normal. No respiratory distress. Breath sounds: Normal breath sounds. No stridor. No wheezing, rhonchi or rales. Skin: General: Skin is warm and dry. Neurological: Mental Status: He is alert and oriented to person, place, and time. Psychiatric: Mood and Affect: Mood normal. Behavior: Behavior normal. Thought Content: Thought content normal. Judgment: Judgment normal. Assessment/Plan: Diagnoses and all orders for this visit: Viral syndrome Cough, unspecified type Discussed with patient and family, symptoms and presentation consistent with viral infection today. Encouraged non pharmacological management. Discussed can use OTC medication such as plain mucinex to help with expectorant and Flonase nasal spray. Lungs CTA on exam today. Discussed with patient if symptoms worsen would like her to f/u or seek emergent care. Patient verbalized understanding and in agreement with plan of care. Please note: Portions of this chart may have been created with [employer] voice recognition software. Occasional wrong-word or sound-like substitutions may have occurred due to inherent limitations of the voice recognition software. Please read the chart carefully and recognize, using context, where the substitutions have occurred. Electronically signed by JERAD Verdin 1:08 PM [1] Social History Tobacco Use Smoking status: Former Current packs/day: 0.00 Types: Cigarettes Start date: 1960 Quit date: 2008 Years since quittin.7 Passive exposure: Past Smokeless tobacco: Never Vaping Use Vaping status: Never Used Substance Use Topics Alcohol use: Not Currently Drug use: Not Currently [2] Allergies Allergen Reactions Budesonide Anaphylaxis Throat constriction Revefenacin Anaphylaxis Throat reconstruction Ipratropium-Albuterol Other (See Comments) Right side of face gets numb documented in this encounter [facility] 11-15-2024 Note Subjective Patient ID: Amy Sun is a 74 y.o. male. Chief Complaint Patient presents with URI POSSIBLE NOT SICK YET BUT PT SPOUSE HAS ONE AND IS ON ANTIBOTICS HPI Amy is a 74 year old male that comes to office with with concerns increased sputum an cough. Patient tells me he has had productive cough for 2 years but notes slightly worse recently. Denies sinus pain, rhinorrhea, fever, chills, body aches, SOB. He has a PMH of HTN, HLD, GERD, BPH, DJD, COPD, hepatic steatosis, insomnia, former tobacco use and tongue CA, pharyngoesophageal dysphagia s/p PEG tube placement. brings concerns as she is on day 3-4 of symptoms and is on antibiotic, she is concerned with his history of PNA that he may develop. The following portions of the patient's history were reviewed and updated as appropriate: allergies, current medications, past family history, past medical history, past social history, past surgical history, and problem list. 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 Chronic kidney disease (CKD) stage G1/A2, glomerular filtration rate (GFR) equal to or greater than 90 mL/min/1.73 square meter and albuminuria creatinine ratio between 30-299 mg/g COPD (chronic obstructive pulmonary disease) (HCC) ED (erectile dysfunction) Edema leg bilateral GERD (gastroesophageal reflux disease) Hepatic steatosis Hyperlipidemia Hypertension Insomnia Migraine without aura and without status migrainosus, not intractable 09/25/2023 Prediabetes Past Surgical History: Procedure Laterality Date ABDOMINAL SURGERY CATARACT EXTRACTION BILATERAL W/ ANTERIOR VITRECTOMY CATARACT EXTRACTION BILATERAL W/ ANTERIOR VITRECTOMY Bilateral CT COLONOSCOPY 03/25/2022 CT COLONOSCOPY LAPAROSCOPIC INGUINAL HERNIA REPAIR [address] Holder for tongue cancer PEG TUBE PLACEMENT 04/04/2023 VASECTOMY Social History[1] Family History Problem Relation Age of Onset Stroke Father Heart disease Father Coronary artery disease Father Diabetes Sister Coronary artery disease Brother Allergies[2] Outpatient Medications as of 11/15/2024 Medication Sig apixaban (Eliquis) 5 mg Tab 1 (one) tablet (5 mg total) by Per G Tube route 2 (two) times a day . aspirin 81 MG EC tablet Take 1 (one) tablet (81 mg total) by mouth daily . mohulfe-fhntglpmxjadt-rivosuun (EXCEDRIN MIGRAINE) 250-250-65 mg per tablet Take 1 (one) tablet by mouth every 6 (six) hours as needed for pain . cyanocobalamin (vitamin B-12) 500 MCG tablet Take 1 (one) tablet (500 mcg total) by mouth daily . doxazosin (CARDURA) 4 MG tablet Take 1 (one) tablet (4 mg total) by mouth nightly . famotidine (PEPCID) 20 MG tablet Take 1 (one) tablet (20 mg total) by mouth 2 (two) times a day . fluticasone propionate (FLONASE) 50 mcg/actuation nasal spray Instill 2 (two) sprays into each nostril daily . Lactobacillus rhamnosus GG (CULTURELLE) 10 billion cell capsule Take 1 (one) capsule by mouth daily . roflumilast (DALIRESP) 500 mcg tablet sertraline (ZOLOFT) 50 MG tablet Take 1 (one) tablet (50 mg total) by mouth daily . SUMAtriptan (IMITREX) 50 MG tablet Take 1 (one) tablet (50 mg total) by mouth every 2 (two) hours as needed for migraine Max of 200 mg in 24hrs, do not treat more than 3 times a week . umeclidinium-vilanteroL 62.5-25 mcg/actuation DsDv Inhale 1 Inhalation daily . celecoxib (ELYXYB) 120 mg/4.8 mL (25 mg/mL) Soln Take 120 mg per G-tube daily . (Patient not taking: Reported on 11/15/2024 .) tamsulosin (FLOMAX) 0.4 mg capsule Take 1 (one) capsule (0.4 mg total) by mouth daily . (Patient not taking: Reported on 11/15/2024 .) tiotropium (SPIRIVA) [address] 1 (one) capsule (18 mcg total) into inhaler and inhale daily . (Patient not taking: Reported on 11/15/2024 .) Review of Systems Objective BP 120/69 (BP Location: Left arm, Patient Position: Sitting, BP Cuff Size: Adult) Pulse (!) 54 Temp 98.2 degrees F (36.8 degrees C) (Oral) Resp 18 Wt 84.2 kg (185 lb 9.6 oz) SpO2 90% BMI 24.49 kg/m Physical Exam Constitutional: General: He is not in acute distress. Appearance: He is not ill-appearing or toxic-appearing. HENT: Right Ear: Tympanic membrane, ear canal and external ear normal. Left Ear: Tympanic membrane, ear canal and external ear normal. Ears: Comments: Bilateral hearing aids Nose: No congestion or rhinorrhea. Mouth/Throat: Mouth: Mucous membranes are moist. Tongue: No lesions. Palate: No lesions. Pharynx: Oropharynx is clear. Uvula midline. Postnasal drip present. No pharyngeal swelling, oropharyngeal exudate, posterior oropharyngeal erythema or uvula swelling. Tonsils: No tonsillar exudate. Eyes: Extraocular Movements: Extraocular movements intact. Conjunctiva/sclera: Conjunctivae normal. Cardiovascular: Rate and Rhythm: Normal rate and regul (more content not included)... [facility] 11-09-2024 History of Present illness Narrative Assessment/Plan: AAA (abdominal aortic aneurysm) Last visualized on CT abdomen pelvis 05/2024, measuring 3.1 cm. We are monitoring annually with ultrasound or CT scan. Memory loss Difficulty with word finding, losing items, difficulty expressing himself. Chronic migraine headaches. CT head without contrast 12/2023 with chronic microvascular changes and mild cerebral and cerebellar atrophy. - Referred to neurology for evaluation Chronic respiratory failure with hypoxia, on home oxygen therapy (HCC) On 2 L NC overnight. Continue. Subjective: Amy Sun is a 74 y.o. male Chief Complaint Patient presents with Follow-up 3 month f/u. Frequent headaches, pt. taking Excedrin extra strength. Pt. Stated nipple tenderness. Patient presents for 3-month follow-up. Patient has been feeling more energetic. He has golfed twice, once per week, and has gone fishing. Memory concerns: Word finding, losing items, difficulty expressing himself Emphysema On NC O2 overnight BLE edema Previously on furosemide, but discontinued due to resolution of his BLE edema and at that time, he was taking oral medication but vomiting it back up. He is not having lower extremity edema. Degenerative joint disease Liquid celecoxib through G-tube burned his stomach, so it was discontinued. AAA Last visualized on CT abdomen pelvis 05/2024, measuring 3.1 cm. We are monitoring annually with ultrasound or CT scan. The following portions of the patient's history were reviewed and updated as appropriate: allergies, current medications, past family history, past medical history, past social history, past surgical history and problem list. Review of Systems Objective: PACU Vitals 11/09/24 1228 BP: 138/81 Pulse: (!) 57 Resp: 16 Temp: 98.6 F (37 C) SpO2: 90% Physical Exam Constitutional: General: He is not in acute distress. Appearance: Normal appearance. He is not ill-appearing, toxic-appearing or diaphoretic. HENT: Head: Normocephalic and atraumatic. Eyes: General: No scleral icterus. Cardiovascular: Rate and Rhythm: Normal rate and regular rhythm. Heart sounds: Normal heart sounds. Pulmonary: Effort: Pulmonary effort is normal. No respiratory distress. Breath sounds: Normal breath sounds. Skin: General: Skin is warm and dry. Coloration: Skin is not jaundiced or pale. Neurological: General: No focal deficit present. Mental Status: He is alert. Psychiatric: Mood and Affect: Mood normal. For any new medications prescribed today, patient was educated about indications for the medication, how to take the medication and potential side effects of the medications. My ongoing relationship with Amy Sun requires continued responsibility and cognitive effort of being the focal point for all services related to chronic condition(s). Ulices Clark DO documented in this encounter [facility] 11-09-2024 Note Assessment/Plan: AAA (abdominal aortic aneurysm) Last visualized on CT abdomen pelvis 05/2024, measuring 3.1 cm. We are monitoring annually with ultrasound or CT scan. Memory loss Difficulty with word finding, losing items, difficulty expressing himself. Chronic migraine headaches. CT head without contrast 12/2023 with chronic microvascular changes and mild cerebral and cerebellar atrophy. - Referred to neurology for evaluation Chronic respiratory failure with hypoxia, on home oxygen therapy (HCC) On 2 L NC overnight. Continue. Subjective: Amy Sun is a 74 y.o. male Chief Complaint Patient presents with Follow-up 3 month f/u. Frequent headaches, pt. taking Excedrin extra strength. Pt. Stated nipple tenderness. Patient presents for 3-month follow-up. Patient has been feeling more energetic. He has golfed twice, once per week, and has gone fishing. Memory concerns: Word finding, losing items, difficulty expressing himself Emphysema On [place] O2 overnight BLE edema Previously on furosemide, but discontinued due to resolution of his BLE edema and at that time, he was taking oral medication but vomiting it back up. He is not having lower extremity edema. Degenerative joint disease Liquid celecoxib through G-tube burned his stomach, so it was discontinued. AAA Last visualized on CT abdomen pelvis 05/2024, measuring 3.1 cm. We are monitoring annually with ultrasound or CT scan. The following portions of the patient's history were reviewed and updated as appropriate: allergies, current medications, past family history, past medical history, past social history, past surgical history and problem list. Review of Systems Objective: PACU Vitals 11/09/24 1228 BP: 138/81 Pulse: (!) 57 Resp: 16 Temp: 98.6 degrees F (37 degrees C) SpO2: 90% Physical Exam Constitutional: General: He is not in acute distress. Appearance: Normal appearance. He is not ill-appearing, toxic-appearing or diaphoretic. HENT: Head: Normocephalic and atraumatic. Eyes: General: No scleral icterus. Cardiovascular: Rate and Rhythm: Normal rate and regular rhythm. Heart sounds: Normal heart sounds. Pulmonary: Effort: Pulmonary effort is normal. No respiratory distress. Breath sounds: Normal breath sounds. Skin: General: Skin is warm and dry. Coloration: Skin is not jaundiced or pale. Neurological: General: No focal deficit present. Mental Status: He is alert. Psychiatric: Mood and Affect: Mood normal. For any new medications prescribed today, patient was educated about indications for the medication, how to take the medication and potential side effects of the medications. My ongoing relationship with Amy Sun requires continued responsibility and cognitive effort of being the focal point for all services related to chronic condition(s). Ulices Clark DO AUTHENTICATED BY ULICES CLARK, ON 11/16/2024 21:58:43 [facility] 11-08-2024 Note Education (NUTRMA) ---- AMY SUN ([id number]) 1950 M Date Time Provider Department 11/08/24 12:30 PM ZOYA HILLMAN Reason for Visit: Nutrition Assessment [1591] Primary Visit Diagnosis:Severe protein-calorie malnutrition (HCC) [E43] Other Visit Diagnosis: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) [C01] During your visit today, we recorded the following information about you: Allergies As of Date: 11/08/2024 Noted Allergy Reaction BUDESONIDE 07/23/2024 10 - Anaphylaxis Comments: Throat constriction REVEFENACIN 07/23/2024 10 - Anaphylaxis Comments: Throat reconstruction IPRATROPIUM-ALBUTEROL 07/23/2024 5 - Intolerance Comments: Right side of face gets numb Date Reviewed: 11/08/2024 Reviewed by: Zoya Hillman RD - Fully Assessed Prescriptions as of 11/08/2024 - roflumilast (DALIRESP) 500 mcg tab Take 1 tablet by mouth once daily. - erythromycin (ROMYCIN) 5 mg/gram (0.5 %) ophthalmic ointment Use 1 application in both eyes two times a week. - doxazosin (CARDURA) 4 mg tablet Take 4 mg by mouth daily at bedtime. - finasteride (PROSCAR) 5 mg tablet Take 5 mg by mouth once daily. - SUMAtriptan (IMITREX) 50 mg tablet Take 50 mg by mouth every 2 hours as needed. - tiotropium (SPIRIVA) 18 mcg inhalation capsule Inhale 18 mcg as instructed once daily. - aspirin, enteric coated (ASPIRIN, ENTERIC COATED) 81 mg EC tablet Take 81 mg by mouth once daily. - cyanocobalamin (VITAMIN B-12) 500 mcg tablet Take 500 mcg by mouth once daily. - fluticasone (FLONASE) 50 mcg/actuation nasal spray Use 2 sprays in each nostril once daily. - umeclidinium-vilanterol (ANORO ELLIPTA) 62.5-25 mcg/actuation inhaler Inhale 1 inhalation as instructed once daily. - apixaban (ELIQUIS) 5 mg tab(s) Take 5 mg by mouth two times a day. - famotidine (PEPCID) 20 mg tablet Take 20 mg by mouth. - nut tx, lact-reduced, iron (BOOST VHC) 0.09-2.25 gram-kcal/mL liqd 52 mL by FEEDING TUBE route continuous. [place] with infinity feeding pump. Flush with an additional 33oz of water daily (divided). - iv contrast (will be provided with radiology test) CT Chest W -Inject, intravenously, once for 1 dose.No IV access, insert saline lock prior to the beginning of sedation, infusion, injection of imaging exam. Discontinue saline lock post exam. If Pt. has a central line or IVAD, may access for administration according to line specific nursing protocol. Once exam is complete flush line and de-access according to line specific nursing protocol in the CT contrast administration guidelines link. - iv contrast (will be provided with radiology test) CT ABD/PEL -Inject, intravenously, once for 1 dose.No IV access, insert saline lock prior to the beginning of sedation, infusion, injection of imaging exam. Discontinue saline lock post exam. If Pt. has a central line or IVAD, may access for administration according to line specific nursing protocol. Once exam is complete flush line and de-access according to line specific nursing protocol in the CT contrast administration guidelines link. - enteric contrast (will be provided with radiology test) For CT ABD/PEL W IVCON Routine order Administer, As Directed One Time Only, via Oral, Rectal, both Oral and Rectal, Enteric Tube, Stoma or Indwelling Catheter, Enteric Contrast as designated per enteric contrast guidelines - nutritional supplement-fiber (COMPLEAT 1.5) 0.07 gram-1.5 kcal/mL liqd 80ml/hr of Compleat 1.5 continuously for 24 hours. Use 1 carton of Benecalorie daily. Flush with 200ml water four times per day. - sertraline (ZOLOFT) 25 mg tablet Take 1 tablet by mouth once daily. Encounter Status:Closed by ZOYA HILLMAN on 11/08/24 [facility] 11-08-2024 Note HNO ID: [id number] Author: ZOYA HILLMAN RD Service: ? Author Type: Registered Dietitian Type: Progress Notes Filed: 11/08/2024 13:41 Note Text: NUTRITION THERAPY ONCOLOGY NOTE Reassessment RECOMMENDED MALNUTRITION DIAGNOSIS: MILD PROTEIN-CALORIE MALNUTRITION ETIOLOGY: In the context of Chronic Illness or Injury based on: Subcutaneous Fat Loss: Severe Loss Muscle Loss Moderate Loss Some elements copied from my note on 09/06/24, have been updated and all reflect current decision making from today, 11/08/2024 Nutrition Diagnosis: Inadequate fluid intake, related to, low administration of water flushes, as evidenced by elevated Na level. Nutrition Intervention: Continue cycled enteral nutrition as ordered: 3 cartons Boost [facility] + 2 cartons Compleat Standard 1.4 at 90ml/hr Monitor tolerance and consider transition to more evenly distributed feedings if clinical status permits and patient agrees. Increase water flushes - total fluids must be 1200ml per day Educational materials provided: None this visit Nutrition Monitoring AND Evaluation: weight status, bowel regulation, hydration status, tolerance to nutrition support (ONS/EN), biochemical markers, management of nutrition impact symptoms. Date of last encounter: 09/06/24 Patient met goal(s): Partially HPI: 74 year old male with a hx of squamous cell carcinoma of the left tongue. Is chronically reliant on enteral access for nutrition with multiple hospitalizations for aspiration pneumonia. Pt only takes water by mouth and is limited to sips. Nutrition Assessment/Interval History: Patient presents for nutrition counseling for follow up for hn ca. Patient's weight gradually increasing since June 2023 and meeting approximately greater than 75% of estimated nutritional needs. Diet recall shows adequate protein, calorie, fiber, iron, potassium, and sodium intake. Hydration is inadequate . Nutrition impact symptoms are controlled. Nutrition related labs indicate hypernatremia from under hydrating. Overall, patient remains at lower nutritional risk due to stable weight, good intake, showing improvement with exception of fluid intake. SUBJECTIVE/OBJECTIVE Diet Recall: EN intake: 2 Compleat Std 1.4; 3 Boost VHC per day Skin: no complications, well healed around enteral access Enteral access: 24 fr low profile baloon tube; managed quarterly by surgeon Food Insecurity Screening: Food Insecurity: No Food Insecurity (11/08/2024) Hunger Vital Sign Worried About Running Out of Food in the Last Year: Never true Ran Out of Food in the Last Year: Never true Readiness to Learn: Cognitive ability: Alert and oriented Motivation to learn: Eager Family support: High - Very involved in pt care Instruction provided to: Patient Patient learns best by: Multiple Methods Factors affecting learning: None Physical limitations affecting learning: None Anthropometrics: Height: Last 1 Encounter Ht Readings: Date: Ht: 07/23/2023 188 cm (6' 2.02) Current weight: Last 1 Encounter Wt Readings: Date: Wt: 09/16/2024 83.9 kg (185 lb) Estimated body mass index is 24.02 kg/m? as calculated from the following: Height as of 07/23/23: 188 cm (6' 2.02). Weight as of an earlier encounter on 11/08/24: 84.9 kg (187 lb 2.7 oz). Resting Metabolic Rate: 1654 Weight Change: Weight has appropriately increased and BMI is now 24 kg/m2 Estimated Nutritional needs: Dosing Weight: 82 kg Estimated kilocalorie needs: 2,050-2,460 kilocalories determined by 25-30 kcal/kg Estimated protein needs: 98.4-123.0 grams determined by 1.2-1.5 g/kg Dosing weight Estimated fluid needs: 2,870 milliliters based on 35 mL/kg Nutrition Focused Physical Exam: Subcutaneous Fat Loss Orbital Moderate Triceps Severe Mid-axillary at the iliac crest Severe Muscle Loss Locations: Temporalis Moderate Pectoralis Moderate Deltoids Moderate Interosseous Moderate Latissimus dorsi, trapezius Moderate Quadriceps Mild Gastrocnemius Mild Potential micronutrient deficiency revealed in: No deficiency identified Edema: No Ascites: No Assessment of Functional Status: Functional, yet not normal, able to be up and about with fairly normal activities for a duration of months Potential Signs of Inflammation: chronic condition Need for Follow up: yearly Referred by: Dr. Brandon MNT Billing Type: Re-assess 2 units Total Time (mins): 30 SIGNATURE: Zoya Hillman RD PATIENT NAME: Amy Sun DATE: 11/08/2024 [facility] 11-08-2024 Note HNO ID: [id number] Author: SUSHMA BRANDON, ? Service: ? Author Type: Physician Type: Progress Notes Filed: 11/08/2024 11:51 Note Text: HISTORY OF PRESENT ILLNESS: Mr. 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 Patient that time was treated with chemoradiation therapy. He completed radiation therapy in February 2009. He was treated on the care Dr. Lennon. He was last seen by him on September 2017. CURRENT STATUS: Since his last visit, patient has been seen by Dr. Adler. Patient was found to have E. coli in the sputum. Patient was treated with Cipro. In addition patient has underwent percutaneous endoscopic gastrostomy tube placement by Dr. Jaimes on September 29, 2024. Patient otherwise reports doing well. He now returns ECOG PERFORMANCE STATUS: 0- Fully active, able to carry on all pre-disease performance w/o restriction. Social History Tobacco Use Smoking status: Former Current packs/day: 0.00 Average packs/day: 2.0 packs/day for 46.0 years (92.0 ttl pk-yrs) Types: Cigarettes Start date: 09/19/1962 Quit date: 09/19/2008 Years since quittin.1 Smokeless tobacco: Never Tobacco comments: Quit Vaping Use Vaping status: Never Used Substance Use Topics Alcohol use: No Drug use: No FAMILY HISTORY Problem Relation Age of Onset Cataract Mother other (Dementia) Mother Coronary Artery Disease Father Heart Father Cataract Father Glaucoma Father Detached Retina No Family History Macular Degen No Family History Blindness No Family History Amblyopia No Family History Strabismus No Family History PAST MEDICAL HISTORY Diagnosis Date Aspiration into respiratory tract Bronchiectasis (HCC) Dysphagia Emphysema lung (HCC) Epiretinal membrane (ERM) of left eye Erythrocytosis 09/15/2014 Hyperlipemia 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 HEAD (Incl. face): Normocephalic; Atraumatic. EYES: Pupils are reactive. No scleral icterus. HEENT: No oral exudates. NECK: No thyromegaly. No JVD. Evidence of neck surgery. HEMATOLOGY/LYMPHATIC: No petechiae or purpura. No tender or palpable lymph nodes in the cervical, supraclavicular, axillary or inguinal areas. RESPIRATORY: Lungs are clear to auscultation. CARDIOVASCULAR: Regular rate and rhythm. 2 + radial pulse. ABDOMEN: Non-tender, soft, positive bowel sounds. BACK/SPINE: No kyphosis or scoliosis. Non tender to palpation. MUSCULOSKELETAL: No tenderness or swelling, normal range of motion without obvious weakness. EXTREMITIES: No cyanosis, clubbing INTEGUMENTARY: No rashes or masses. NEURO: No sensory or motor deficits, normal cerebellar function, normal gait, cranial nerves intact. PSYCHIATRIC: Pleasant affect. No signs of agitation. LABS: Latest Reference Range AND Units 11/08/24 10:53 Sodium 136 - 144 mmol/L 145 (H) Potassium 3.7 - 5.1 mmol/L 4.8 Chloride 98 - 107 mmol/L 102 CO2 22 - 30 mmol/L 31 (H) BUN 9 - 24 mg/dL 32 (H) Creatinine 0.73 - 1.22 mg/dL 0.75 Glucose 74 - 99 mg/dL 118 (H) Protein, Total 6.3 - 8.0 g/dL 7.1 Calcium 8.5 - 10.2 mg/dL 10.2 Albumin 3.9 - 4.9 g/dL 4.3 Bilirubin, Total 0.2 - 1.3 mg/dL 0.4 Alkaline Phosphatase 38 - 113 U/L 109 ALT 10 - 54 U/L 16 AST 14 - 40 U/L 21 Anion Gap 8 - 15 mmol/L 12 eGFR >=60 mL/min/1.73m? 95 WBC 3.70 - 11.00 k/uL 5.10 RBC 4.20 - 6.00 m/uL 4.61 Hemoglobin 13.0 - 17.0 g/dL 14.1 Hematocrit 39.0 - 51.0 % 42.8 Platelet Count 150 - 400 k/uL 163 MCV 80.0 - 100.0 fL 92.8 MCH 26.0 - 34.0 pg 30.6 MCHC 30.5 - 36.0 g/dL 32.9 MPV 9.0 - 12.7 fL 11.4 RDW-CV 11.5 - 15.0 % 12.7 DTYPE Auto Neut% % 73.2 Abs Neut (ANC) 1.45 - 7.50 k/uL 3.73 Lymph% % 14.9 Abs Lymph 1.00 - 4.00 k/uL 0.76 (L) Gaston% % 8.4 Abs Gaston <0.87 k/uL 0.43 Eosin% % 2.7 Abs Eosin <0.46 k/uL 0.14 Baso% % 0.6 Abs Baso <0.11 k/uL 0.03 Immature Gran % % 0.2 IMMATURE GRANS (ABS) <0.10 k/uL <0.03 NRBC /100 WBC 0.0 Absolute nRBC <0.01 k/uL <0.01 (H): Data is abnormally high (L): Data is abnormally low RADIOLOGY: CT CHEST WITHOUT CONTRAST -Exam End: 07/04/24 11:09 AM FINDINGS: LUNGS: Mild emphysematous changes. Bronchiectasis within right lower lobe. Multiple irregular patchy and slightly spiculated opacities within left lower lobe. Mild groundglass patchy opacities within right lower lobe. PLEURA: No mass, effusion, or pneumothorax. VASCULATURE: No abnormality. MEGA: No mass or adeno (more content not included)... [facility] 11-03-2024 Telephone encounter Note KISHOR is requesting a refill for Requested Prescriptions Pending Prescriptions Disp Refills sertraline (ZOLOFT) 50 MG tablet 90 tablet 3 Sig: Take 1 (one) tablet (50 mg total) by mouth daily . Requesting refill prior to NOV due to the time it takes for med to be delivered. Last refill: 12/15/2023 90 day 3 rf Last appt: 09/14/2024 Upcoming appt (when is it due or is it scheduled): 11/09/2024 Follow up: Refill pending for review without additional follow up based on information above. [facility] 11-03-2024 Miscellaneous Notes KISHOR is requesting a refill for Requested Prescriptions Pending Prescriptions Disp Refills sertraline (ZOLOFT) 50 MG tablet 90 tablet 3 Sig: Take 1 (one) tablet (50 mg total) by mouth daily . Requesting refill prior to NOV due to the time it takes for med to be delivered. Last refill: 12/15/2023 90 day 3 rf Last appt: 09/14/2024 Upcoming appt (when is it due or is it scheduled): 11/09/2024 Follow up: Refill pending for review without additional follow up based on information above. documented in this encounter [facility] 10-25-2024 Telephone encounter Note Spouse calling as patient is almost out of his roflumilast and she was uncertain if he is to continue this medication following his new patient consult on 09/16? If provider would like patient to continue, will need 90 day RX to [facility]. Pharmacy loaded. Lisa Torres LPN [facility] 10-25-2024 Miscellaneous Notes Spouse calling as patient is almost out of his roflumilast and she was uncertain if he is to continue this medication following his new patient consult on 09/16? If provider would like patient to continue, will need 90 day RX to [facility]. Pharmacy loaded. Lisa Torres LPN documented in this encounter [facility] 10-13-2024 Telephone encounter Note Spoke with patient. Discussed anticholingeric drug class red flags. He had previously tolerated Spiriva which has similar side effect profile. No current complaints. Lisa Torres LPN [facility] 10-13-2024 Miscellaneous Notes Spoke with patient. Discussed anticholingeric drug class red flags. He had previously tolerated Spiriva which has similar side effect profile. No current complaints. Lisa Torres LPN Patient called into office requesting information regarding anoro ellipta as insert stated this could effect prostate and he already has issues with prostate. Please advise. Brandi Cisneros LPN documented in this encounter [facility] 10-13-2024 Telephone encounter Note Patient called into office requesting information regarding anoro ellipta as insert stated this could effect prostate and he already has issues with prostate. Please advise. Brandi Cisneros LPN [facility] Work Phone: 10-08-2024 Telephone encounter Note Left voicemail message regarding results to date. Immune system okay. No alpha 1 antitrypsin deficiency. Sputum growing E. Coli. AFB preliminary negative. Sent in Cipro prescription. [facility] 10-08-2024 Miscellaneous Notes Left voicemail message regarding results to date. Immune system okay. No alpha 1 antitrypsin deficiency. Sputum growing E. Coli. AFB preliminary negative. Sent in Cipro prescription. documented in this encounter [facility] 10-08-2024 Instructions Naida Phillips MD - 10/08/2024 11:39 AM EDT Current Ophthalmic Meds erythromycin (ROMYCIN) 5 mg/gram (0.5 %) ophthalmic ointment Use 1 application in both eyes two times a week. documented in this encounter [facility] 10-08-2024 Note HNO ID: [id number] Author: NAIDA PHILLIPS MD Service: ? Author Type: Physician Type: Progress Notes Filed: 10/08/2024 11:39 Note Text: ASSESSMENT/PLAN: 1. Dry eye syndrome of both eyes - ICD9: 375.15, ICD10: H04.123 (primary diagnosis) 2. Meibomian gland dysfunction (MGD) of upper and lower lids of both eyes - ICD9: 373.00, ICD10: H02.88A, H02.88B Current Ophthalmic Meds erythromycin (ROMYCIN) 5 mg/gram (0.5 %) ophthalmic ointment Use 1 application in both eyes two times a week. Continue: Systane Complete solution instill 1 drop 3 times daily Both Eyes. Ice packs as directed 3. Epiretinal membrane (ERM) of left eye - ICD9: 362.56, ICD10: H35.372 4. Vitelliform lesion of macula, Left eye - ICD9: 362.76, ICD10: H35.54 Monitor/observe Getting Dr. Ceja's opinion of the left eye 5. Pseudophakia of both eyes - ICD9: V43.1, ICD10: Z96.1 Intraocular lens well centered I have confirmed and edited as necessary the relevant HPI, ophthalmic history, ROS, and the neuro exam findings as obtained by others. I have seen and examined Amy Sun. I have discussed the case and the management of this patient's care with the Resident/Fellow, if applicable. I also have reviewed and agree with the assessment and plan as stated above and agree with all of its relevant components. [facility] 10-08-2024 History of Present illness Narrative ASSESSMENT/PLAN: 1. Dry eye syndrome of both eyes - ICD9: 375.15, ICD10: H04.123 (primary diagnosis) 2. Meibomian gland dysfunction (MGD) of upper and lower lids of both eyes - ICD9: 373.00, ICD10: H02.88A, H02.88B Current Ophthalmic Meds erythromycin (ROMYCIN) 5 mg/gram (0.5 %) ophthalmic ointment Use 1 application in both eyes two times a week. Continue: Systane Complete solution instill 1 drop 3 times daily Both Eyes. Ice packs as directed 3. Epiretinal membrane (ERM) of left eye - ICD9: 362.56, ICD10: H35.372 4. Vitelliform lesion of macula, Left eye - ICD9: 362.76, ICD10: H35.54 Monitor/observe Getting Dr. Ceja's opinion of the left eye 5. Pseudophakia of both eyes - ICD9: V43.1, ICD10: Z96.1 Intraocular lens well centered I have confirmed and edited as necessary the relevant HPI, ophthalmic history, ROS, and the neuro exam findings as obtained by others. I have seen and examined Amy Sun. I have discussed the case and the management of this patient's care with the Resident/Fellow, if applicable. I also have reviewed and agree with the assessment and plan as stated above and agree with all of its relevant components. documented in this encounter [facility] 09-29-2024 Note HNO ID: [id number] Author: NAIDA PHILLIPS MD Service: ? Author Type: Physician Type: Progress Notes Filed: 09/29/2024 15:57 Note Text: ASSESSMENT/PLAN: 1. Meibomian gland dysfunction (MGD) of upper and lower lids of both eyes - ICD9: 373.00, ICD10: H02.88A, H02.88B (primary diagnosis) 2. Dry eye syndrome of both eyes - ICD9: 375.15, ICD10: H04.123 Current Ophthalmic Meds erythromycin (ROMYCIN) 5 mg/gram (0.5 %) ophthalmic ointment Use 1 application in both eyes daily at bedtime. Systane Pro 1 drop in both eyes three times daily Ice packs as directed Return in 3 weeks 3. Epiretinal membrane (ERM) of left eye - ICD9: 362.56, ICD10: H35.372 Monitor 4. Vitelliform lesion of macula, Left eye - ICD9: 362.76, ICD10: H35.54 Stable/observe 5. Pseudophakia of both eyes - ICD9: V43.1, ICD10: Z96.1 Lens position well centered both eyes I have confirmed and edited as necessary the relevant ophthalmic history, review of systems, surgical history, and ophthalmological examination findings as obtained by the ophthalmic technical staff. I have seen and examined Amy Sun. I have discussed the examination findings, diagnosis, and treatment options with Amy Sun and/or his family. I have also reviewed and agree with the assessment and plan as stated above and agree with all its relevant components. I gave the patient the opportunity to ask questions about the findings, diagnosis, and treatment options. [facility] 09-29-2024 History of Present illness Narrative ASSESSMENT/PLAN: 1. Meibomian gland dysfunction (MGD) of upper and lower lids of both eyes - ICD9: 373.00, ICD10: H02.88A, H02.88B (primary diagnosis) 2. Dry eye syndrome of both eyes - ICD9: 375.15, ICD10: H04.123 Current Ophthalmic Meds erythromycin (ROMYCIN) 5 mg/gram (0.5 %) ophthalmic ointment Use 1 application in both eyes daily at bedtime. Systane Pro 1 drop in both eyes three times daily Ice packs as directed Return in 3 weeks 3. Epiretinal membrane (ERM) of left eye - ICD9: 362.56, ICD10: H35.372 Monitor 4. Vitelliform lesion of macula, Left eye - ICD9: 362.76, ICD10: H35.54 Stable/observe 5. Pseudophakia of both eyes - ICD9: V43.1, ICD10: Z96.1 Lens position well centered both eyes I have confirmed and edited as necessary the relevant ophthalmic history, review of systems, surgical history, and ophthalmological examination findings as obtained by the ophthalmic technical staff. I have seen and examined Amy Sun. I have discussed the examination findings, diagnosis, and treatment options with Amy Sun and/or his family. I have also reviewed and agree with the assessment and plan as stated above and agree with all its relevant components. I gave the patient the opportunity to ask questions about the findings, diagnosis, and treatment options. documented in this encounter [facility] 09-29-2024 Instructions Naida Phillips MD - 09/29/2024 3:53 PM EDT Current Ophthalmic Meds erythromycin (ROMYCIN) 5 mg/gram (0.5 %) ophthalmic ointment Use 1 application in both eyes daily at bedtime. Systane Pro 1 drop in both eyes three times daily Ice packs as directed If you have any questions please contact our office at [phone]. After office hours or on the weekend, please call Dr. Phillips on his cell phone at [phone]. documented in this encounter [facility] 09-29-2024 History of Present illness Narrative Patient came in his for PEG tube issue. Had Lake button placed approximately 3 months ago. is having issues with occluded port. Despite attempts to on clog his device were unsuccessful and his Lake button was changed in the office. She did bring a device with her which changed to. His old device was removed after deflating the distal balloon. A 22 [place] 4 cm Lake button was placed without difficulty balloon was inflated to 5 mL. Site was dressed with a sterile dressing. He will follow-up in 4 months. documented in this encounter [facility] Work Phone: 09-18-2024 Evaluation + Plan note Associated Problem(s): Bilateral leg edema Chronic, intermittent edema. Previously using as needed Lasix 20 mg x 3 days each episode. Edema is mild. Patient notices worse since medication increased his daily water intake. - Continue supportive measures; keep legs elevated, pump feet, compression stockings - Check CMP [facility] 09-18-2024 Miscellaneous Notes Associated Problem(s): Bilateral leg edema Chronic, intermittent edema. Previously using as needed Lasix 20 mg x 3 days each episode. Edema is mild. Patient notices worse since medication increased his daily water intake. - Continue supportive measures; keep legs elevated, pump feet, compression stockings - Check CMP Associated Problem(s): Respiratory crackles of both lungs With history of aspiration pneumonia, PEG tube dependent and bilateral lower lobe crackles on exam. Denies worsening shortness of breath, cough, fever, chills. He has upcoming pulmonology appointment in October. - CXR ordered for evaluation Associated Problem(s): Acute conjunctivitis of left eye Likely viral conjunctivitis, but concern for secondary bacterial infection. - Prescribed ofloxacin ophthalmic gtt x 7 days - Monitor and follow-up if needed documented in this encounter [facility] 09-18-2024 Evaluation + Plan note Associated Problem(s): Respiratory crackles of both lungs With history of aspiration pneumonia, PEG tube dependent and bilateral lower lobe crackles on exam. Denies worsening shortness of breath, cough, fever, chills. He has upcoming pulmonology appointment in October. - CXR ordered for evaluation [facility] 09-18-2024 Evaluation + Plan note Associated Problem(s): Acute conjunctivitis of left eye Likely viral conjunctivitis, but concern for secondary bacterial infection. - Prescribed ofloxacin ophthalmic gtt x 7 days - Monitor and follow-up if needed [facility] 09-16-2024 Note Please call patient and let him know his blood test result is fine. AUTHENTICATED BY ULICES CLARK, ON 09/16/2024 13:53:54 [facility] 09-16-2024 History of Present illness Narrative Please call patient and let him know his blood test result is fine. Please call patient and let him know his chest x-ray is okay. There is no sign of pneumonia or fluid. documented in this encounter [facility] 09-16-2024 History of Present illness Narrative Images from the original note were not included. . Respiratory [place] Note Patient name: Amy Sun PCP: Gunjan Godoy MD Referring Physician: Sushma Brandon MD Recording using ambient [employer] software for draft documentation of the visit was discussed with the patient/authorized technical services representative; all questions welcomed and answered. Patient/authorized technical services representative agreed to proceed Consultation requested by Dr. Brandon for an opinion regarding lung nodules. My final recommendations will be communicated back to the requesting physician by way of shared Medical record or letter to requesting physician via US mail. CC: lung nodules HPI: Amy Sun 74 year old male former 90+ pack year smoker, quitting in 2008 with PMH significant for head and neck cancer 2008 (base of tongue) s/p chemoradiation, erthrocytosis, HLD, emphysema, bronchiectasis, dysphagia s/p PEG tube, chronic hypoxemic respiratory failure, aspiration . Recent history notable for hospital admission in June with bilateral PNA. Chest CT pertinent for multiple irregular patchy opacities in LLL and GGO in RLL. Follows with pulmonary at [facility] but requested change in pulmonary providers. From a respiratory Bill reports significant daily mucus production, described as brown in color and sometimes difficult to expectorate. He denies hemoptysis, chest pain, or pressure. No wheezing. No night sweats or current fevers. Has a history of recurrent aspiration. Kishor has a PEG tube and is unable to eat or drink orally, though he occasionally attempts to consume popsicles without success. He has moderate COPD for which he uses Spiriva. Unable to use any form of nebulized medication due facial numbness and near-syncope and he had throal swelling from Pulmicort. He was on Advair but discontinued due to episodes of oral thrush. DME: [facility] DATA: PFT 08/2023: Impression: - 08/22/2023 PFT: - Spirometry - MODERATELY SEVERE OBSTRUCTION, FEV1/FVC 58%, FEV1 2.03L 58% predicted, FVC 3.53L 74% predicted; w/ SMALL AIRWAY flow limitation. - Significant response to bronchodilator: LARGE response during this testing, as may be seen w/ Asthma, RAD (FEV1 increased 15%). - Lung Volume - HYPERINFLATION, INCREASED TLC 12.03L 167% predicted, RV 8.78L 314% predicted - w/ SEVERE AIR TRAPPING. - Diffusing Capacity: MILDLY REDUCED DLCO 66% predicted, DL/VA 107% (which normalizes when adjusted for lung volume, suggesting probably extraparenchymal cause; e.g., body habitus; may also have emphysema). - Flow Volume Loops - Obstructive pattern; No overt upper airway obstruction pattern. Imaging / Diagnostic Studies: DATE OF EXAM: Aug 16 2024 1:30PM OCC 0541 - CT CHEST WO IVCON / RESULT: EXAMINATION: CHEST CT WITHOUT CONTRAST CLINICAL HISTORY: Multiple lung nodules on CT Aspiration into lower respiratory tract, subsequent encounter Aspiration, clearing of pneumonia vs mets Comparison: 01/22/2024 and 07/18/2023 RESULT: Lines, tubes, and devices: None. Lung parenchyma and airways: Trachea and central airways are patent. Bronchiectasis within the right middle lobe, lingula, and lower lobes right greater than left. Diffuse bronchial wall thickening with scattered mucoid impaction spelled both lungs. Waxing and waning multifocal centrilobular tree-in-bud nodular opacities throughout both lungs increased in the right upper lobe and lateral left lower lobe. Previously identified more focal solid nodular opacities in the lower lobes have resolved. More focal dependent atelectasis in the right lower lobe. Pleural space: No pleural effusion or pneumothorax. Lower neck, lymph nodes, and mediastinum: No axillary, supraclavicular, mediastinal or hilar lymphadenopathy by CT size criteria. Heart, pericardium, and thoracic vessels: The heart is normal in size. No pericardial effusion. The thoracic aorta and main pulmonary artery are normal in caliber. Atherosclerotic calcification of the thoracic aorta. Bones/Soft Tissues: No aggressive osseous lesions. Upper abdomen: Gastrostomy tube in place. 1 cm hemorrhagic/proteinaceous left renal cyst. Client Engagement Specialist (topogram) images: Unremarkable. IMPRESSION: Waxing and waning opacities suggestive of a chronic infectious/inflammatory process though continued follow-up is recommended. No definite metastatic disease in the chest. Irregular nodules significant bronchiectasis mainly of lower lobes and tree-in-bud opacities mainly in the right lung. PAST MEDICAL HISTORY Diagnosis Date Aspiration into respiratory tract Bronchiectasis (HCC) Dysphagia Emphysema lung (HCC) Epiretinal membrane (ERM) of left eye Erythrocytosis 09/15/2014 Hyperlipemia 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) 12/02/2008 Nausea with vomiting PCO (posterior capsular opacification), left Pseudophakia, both eyes S/P percutaneous endoscopic gastrostomy (PEG) tube placement (HCC) Secondary and unspecified malignant neoplasm of lymph nodes of head, face, and neck 12/02/2008 Vitreous floaters ALLERGIES Allergen Reactions Budesonide Anaphylaxis Throat constriction Revefenacin Anaphylaxis Throat reconstruction Ipratropium-Albuter* Intolerance Right side of face gets numb doxazosin (CARDURA) 4 mg tablet Take 4 mg by mouth daily at bedtime. finasteride (PROSCAR) 5 mg tablet Take 5 mg by mouth once daily. roflumilast (DALIRESP) 500 mcg tab 500 mcg once daily. SUMAtriptan (IMITREX) 50 mg tablet Take 50 mg by mouth every 2 hours as needed. tiotropium (SPIRIVA) 18 mcg inhalation capsule Inhale 18 mcg as instructed once daily. aspirin, enteric coated (ASPIRIN, ENTERIC COATED) 81 mg EC tablet Take 81 mg by mouth once daily. cyanocobalamin (VITAMIN B-12) 500 mcg tablet Take 500 mcg by mouth once daily. fluticasone (FLONASE) 50 mcg/actuation nasal spray Use 2 sprays in each nostril once daily. ofloxacin (OCUFLOX) 0.3 % ophthalmic solution Use 2 drops in the left eye four times daily. apixaban (ELIQUIS) 5 mg tab(s) Take 5 mg by mouth two times a day. famotidine (PEPCID) 20 mg tablet Take 20 mg by mouth. nut tx, lact-reduced, iron (BOOST VHC) 0.09-2.25 gram-kcal/mL liqd 52 mL by FEEDING TUBE route continuous. [place] with infinity feeding pump. Flush with an additional 33oz of water daily (divided). nutritional supplement-fiber (COMPLEAT 1.5) 0.07 gram-1.5 kcal/mL liqd 80ml/hr of Compleat 1.5 continuously for 24 hours. Use 1 carton of Benecalorie daily. Flush with 200ml water four times per day. sertraline (ZOLOFT) 25 mg tablet Take 1 tablet by mouth once daily. umeclidinium-vilanterol (ANORO ELLIPTA) 62.5-25 mcg/actuation inhaler Inhale 1 inhalation as instructed once daily. iv contrast (will be provided with radiology test) CT Chest W -Inject, intravenously, once for 1 dose.No IV access, insert saline lock prior to the beginning of sedation, infusion, injection of imaging exam. Discontinue saline lock post exam. If Pt. has a central line or IVAD, may access for administration according to line specific nursing protocol. Once exam is complete flush line and de-access according to line specific nursing protocol in the CT contrast administration guidelines link. (Patient not taking: Reported on 01/26/2024) iv contrast (will be provided with radiology test) CT ABD/PEL -Inject, intravenously, once for 1 dose.No IV access, insert saline lock prior to the beginning of sedation, infusion, injection of imaging exam. Discontinue saline lock post exam. If Pt. has a central line or IVAD, may access for administration according to line specific nursing protocol. Once exam is complete flush line and de-access according to line specific nursing protocol in the CT contrast administration guidelines link. (Patient not taking: Reported on 01/26/2024) enteric contrast (will be provided with radiology test) For CT ABD/PEL W IVCON Routine order Administer, As Directed One Time Only, via Oral, Rectal, both Oral and Rectal, Enteric Tube, Stoma or Indwelling Catheter, Enteric Contrast as designated per enteric contrast guidelines (Patient not taking: Reported on 01/26/2024) Social History Tobacco Use Smoking status: Former Current packs/day: 0.00 Average packs/day: 2.0 packs/day for 46.0 years (92.0 ttl pk-yrs) Types: Cigarettes Start date: 09/19/1962 Quit date: 09/19/2008 Years since quittin.0 Smokeless tobacco: Never Tobacco comments: Quit Vaping Use Vaping status: Never Used Substance Use Topics Alcohol use: No Drug use: No Guillermo Labs Pets: None FAMILY HISTORY Problem Relation Age of Onset Cataract Mother other (Dementia) Mother Coronary Artery Disease Father Heart Father Cataract Father Glaucoma Father Detached Retina No Family History Macular Degen No Family History Blindness No Family History Amblyopia No Family History Strabismus No Family History PAST SURGICAL HISTORY Procedure Laterality Date FEEDING TUBE PLACEMENT 2009 HERNIA REPAIR HX 02/17/1993 Right inguinal PAST SURGICAL HISTORY OF 2008 surgery to remove cancerous lymph nodes and tissue related to cancer of base of tongue XCAPSL CTRC RMVL INSJ IO LENS PROSTH W/O ECP Right 02/17/2009 Cataract Extraction with PC IOL/ReSTOR XCAPSL CTRC RMVL INSJ IO LENS PROSTH W/O ECP Left 04/05/2015 Cat. Surg/ Femto/ Restor PMH, Social history, family history and surgical history reviewed and updated in EMR REVIEW OF SYSTEMS: CONSTITUTIONAL: No fevers, chills, nightsweats. Weight loss HEENT: Denies nasal congestion/sinus symptoms CARDIOVASCULAR: No chest pain, dyspnea, palpitations, orthopnea, edema. PULM: See HPI GI: History of recurrent aspiration : No urinary issues NEURO: No balance problems, peripheral weakness/paresthesias or numbness of concern. MUSC-SKEL: No joint pain, swelling, or erythema. PSY: No concerns regarding depression, anxiety INTEGUMENTARY: No new skin changes PHYSICAL EXAMINATION: BP 136/84 Pulse 57 Wt 185 lb (83.9kg) SpO2 94% General Appearance: Age-appropriate male, NAD. Skin: Skin color, texture, turgor normal, no suspicious rashes or lesions. Head: No abnormalities Neck: Changes related to head neck surgery, no palpable masses. Lungs: Not labored, normal to percussion, diffuse crackles loudest in left base, no wheezing. Heart: Regular rate and rhythm, no murmurs. Extremities: No significant edema, no clubbing. Assessment/Plan: 1. Bronchiectasis, uncomplicated -Significant bronchiectasis most likely due to history of recurrent aspiration -Will check quantitative immunoglobulins and for alpha 1 antitrypsin deficiency -Initiate bronchopulmonary hygiene with flutter valve. May need chest vest. Unable to use nebulized saline -Sputum culture for aerobic bacteria and AFB -May benefit from chronic azithromycin therapy. EKG shows normal QT interval 2. Moderate COPD -Changed inhaled therapy to an oral Ellipta -Continue tobacco free state 3. Aspiration -Nothing by mouth -Elevate head of bed -Pulmonary nodules appear inflammatory. Continue surveillance 4. History of tongue cancer -No evidence of recurrence -Follows with oncology 5. Former smoker - Former smoker with sequelae of cancer and COPD - Continue abstinence - Does not qualifies for lung cancer screening base on duration of smoking cessation greater than 15 years Omer Adler MD [facility] documented in this encounter [facility] 09-16-2024 Note HNO ID: [id number] Author: OMER ADLER MD Service: ? Author Type: Physician Type: Progress Notes Filed: 09/16/2024 17:00 Note Text: . Res[facility] [place] Note Patient name: Amy Sun PCP: Gunjan Godoy MD Referring Physician: Sushma Brandon MD Recording using ambient [employer] software for draft documentation of the visit was discussed with the patient/authorized technical services representative; all questions welcomed and answered. Patient/authorized technical services representative agreed to proceed Consultation requested by Dr. Brandon for an opinion regarding lung nodules. My final recommendations will be communicated back to the requesting physician by way of shared Medical record or letter to requesting physician via US mail. CC: lung nodules HPI: Amy Sun 74 year old male former 90+ pack year smoker, quitting in 2008 with PMH significant for head and neck cancer 2008 (base of tongue) s/p chemoradiation, erthrocytosis, HLD, emphysema, bronchiectasis, dysphagia s/p PEG tube, chronic hypoxemic respiratory failure, aspiration . Recent history notable for hospital admission in June with bilateral PNA. Chest CT pertinent for multiple irregular patchy opacities in LLL and GGO in RLL. Follows with pulmonary at [facility] but requested change in pulmonary providers. From a respiratory Bill reports significant daily mucus production, described as brown in color and sometimes difficult to expectorate. He denies hemoptysis, chest pain, or pressure. No wheezing. No night sweats or current fevers. Has a history of recurrent aspiration. Kishor has a PEG tube and is unable to eat or drink orally, though he occasionally attempts to consume popsicles without success. He has moderate COPD for which he uses Spiriva. Unable to use any form of nebulized medication due facial numbness and near-syncope and he had throal swelling from Pulmicort. He was on Advair but discontinued due to episodes of oral thrush. DME: Luci DATA: PFT 08/2023: Impression: - 08/22/2023 PFT: - Spirometry - MODERATELY SEVERE OBSTRUCTION, FEV1/FVC 58%, FEV1 2.03L 58% predicted, FVC 3.53L 74% predicted; w/ SMALL AIRWAY flow limitation. - Significant response to bronchodilator: LARGE response during this testing, as may be seen w/ Asthma, RAD (FEV1 increased 15%). - Lung Volume - HYPERINFLATION, INCREASED TLC 12.03L 167% predicted, RV 8.78L 314% predicted - w/ SEVERE AIR TRAPPING. - Diffusing Capacity: MILDLY REDUCED DLCO 66% predicted, DL/VA 107% (which normalizes when adjusted for lung volume, suggesting probably extraparenchymal cause; e.g., body habitus; may also have emphysema). - Flow Volume Loops - Obstructive pattern; No overt upper airway obstruction pattern. Imaging / Diagnostic Studies: DATE OF EXAM: Aug 16 2024 1:30PM [facility] 0541 - CT CHEST WO IVCON / RESULT: EXAMINATION: CHEST CT WITHOUT CONTRAST CLINICAL HISTORY: Multiple lung nodules on CT Aspiration into lower respiratory tract, subsequent encounter Aspiration, clearing of pneumonia vs mets Comparison: 01/22/2024 and 07/18/2023 RESULT: Lines, tubes, and devices: None. Lung parenchyma and airways: Trachea and central airways are patent. Bronchiectasis within the right middle lobe, lingula, and lower lobes right greater than left. Diffuse bronchial wall thickening with scattered mucoid impaction spelled both lungs. Waxing and waning multifocal centrilobular tree-in-bud nodular opacities throughout both lungs increased in the right upper lobe and lateral left lower lobe. Previously identified more focal solid nodular opacities in the lower lobes have resolved. More focal dependent atelectasis in the right lower lobe. Pleural space: No pleural effusion or pneumothorax. Lower neck, lymph nodes, and mediastinum: No axillary, supraclavicular, mediastinal or hilar lymphadenopathy by CT size criteria. Heart, pericardium, and thoracic vessels: The heart is normal in size. No pericardial effusion. The thoracic aorta and main pulmonary artery are normal in caliber. Atherosclerotic calcification of the thoracic aorta. Bones/Soft Tissues: No aggressive osseous lesions. Upper abdomen: Gastrostomy tube in place. 1 cm hemorrhagic/proteinaceous left renal cyst. Client Engagement Specialist (topogram) images: Unremarkable. IMPRESSION: Waxing and waning opacities suggestive of a chronic infectious/inflammatory process though continued follow-up is recommended. No definite metastatic disease in the chest. Irregular nodules significant bronchiectasis mainly of lower lobes and tree-in-bud opacities mainly in the right lung. PAST MEDICAL HISTORY Diagnosis Date Aspiration into respiratory tract Bronchiectasis (HCC) Dysphagia Emphysema lung (HCC) Epiretinal membrane (ERM) of left eye Erythrocytosis 09/15/2014 Hyperlipemia 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) 12/02/2008 Nausea with vomiting PCO (posterior capsular opacifica (more content not included)... [facility] 09-15-2024 Note Please call patient and let him know his chest x-ray is okay. There is no sign of pneumonia or fluid. AUTHENTICATED BY ULICES CLARK ON 09/15/2024 14:22:57 [facility] 09-14-2024 Telephone encounter Note LVM PCP will not be sending refill for ofloxacin (OCUFLOX) 0.3 % ophthalmic solution.[facility] 09/14/24. [facility] 09-14-2024 Miscellaneous Notes LVM PCP will not be sending refill for ofloxacin (OCUFLOX) 0.3 % ophthalmic solution.[facility] 09/14/24. BILL is requesting a refill for Requested Prescriptions Pending Prescriptions Disp Refills ofloxacin (OCUFLOX) 0.3 % ophthalmic solution 10 mL 0 Sig: Administer 2 (two) drops into the left eye 4 (four) times a day . Last refill: 09/14/24 Different [facility] Last appt: 09/14/24 Upcoming appt (when is it due or is it scheduled): 11/09/24 Follow up: Refill pending for review without additional follow up based on information above. documented in this encounter [facility] 09-14-2024 Telephone encounter Note BILL is requesting a refill for Requested Prescriptions Pending Prescriptions Disp Refills ofloxacin (OCUFLOX) 0.3 % ophthalmic solution 10 mL 0 Sig: Administer 2 (two) drops into the left eye 4 (four) times a day . Last refill: 09/14/24 Different Pharmacy Last appt: 09/14/24 Upcoming appt (when is it due or is it scheduled): 11/09/24 Follow up: Refill pending for review without additional follow up based on information above. [facility] 09-14-2024 History of Present illness Narrative Assessment/Plan: Acute conjunctivitis of left eye Likely viral conjunctivitis, but concern for secondary bacterial infection. - Prescribed ofloxacin ophthalmic gtt x 7 days - Monitor and follow-up if needed Respiratory crackles of both lungs With history of aspiration pneumonia, PEG tube dependent and bilateral lower lobe crackles on exam. Denies worsening shortness of breath, cough, fever, chills. He has upcoming pulmonology appointment in October. - CXR ordered for evaluation Bilateral leg edema Chronic, intermittent edema. Previously using as needed Lasix 20 mg x 3 days each episode. Edema is mild. Patient notices worse since medication increased his daily water intake. - Continue supportive measures; keep legs elevated, pump feet, compression stockings - Check CMP Subjective: Amy Sun is a 74 y.o. male Chief Complaint Patient presents with Follow-up Pt here for a 3 month follow up. Pt c/o left eye watery and drainage. Pt's also stated that the visiting nurse informed her that pt's lungs are very crackling with his left lung being worse. Patient presents for follow-up. He is accompanied by his . For a few days, patient has experienced L eye watering and matting in the mornings. Blurred vision when matted, patient clears after rubbing and clearing the matter. He denies pain. Endorses mild itching. Patient reports his visiting nurse heard crackling in L lung today on exam. He denies worsening shortness of breath, cough, fever, chills. He does have a history of aspiration pneumonia due to dysphagia, G-tube dependent. He has mild edema of both legs for several months. Noticing it more so now that his travel registered nurse pacu has increased his water intake. He has PEG tube dependent, on tube feed, monitored carefully by nutrition. The following portions of the patient's history were reviewed and updated as appropriate: allergies, current medications, past family history, past medical history, past social history, past surgical history and problem list. Review of Systems Objective: PACU Vitals 09/14/24 1239 BP: 124/82 Pulse: (!) 59 Resp: 14 Temp: 97.9 F (36.6 C) SpO2: 90% Physical Exam Constitutional: General: He is not in acute distress. Appearance: Normal appearance. He is not toxic-appearing or diaphoretic. HENT: Head: Normocephalic and atraumatic. Eyes: General: Left eye: Discharge present. Conjunctiva/sclera: Left eye: Left conjunctiva is injected. Cardiovascular: Rate and Rhythm: Normal rate and regular rhythm. Pulmonary: Effort: Pulmonary effort is normal. No respiratory distress. Breath sounds: Examination of the right-lower field reveals rhonchi. Examination of the left-lower field reveals rhonchi. Rhonchi present. No wheezing. Skin: General: Skin is warm and dry. Neurological: Mental Status: He is alert. Psychiatric: Mood and Affect: Mood normal. For any new medications prescribed today, patient was educated about indications for the medication, how to take the medication and potential side effects of the medications. My ongoing relationship with Amy Sun requires continued responsibility and cognitive effort of being the focal point for all services related to chronic condition(s). Ulices Clark DO documented in this encounter [facility] 09-14-2024 Note Assessment/Plan: Acute conjunctivitis of left eye Likely viral conjunctivitis, but concern for secondary bacterial infection. - Prescribed ofloxacin ophthalmic gtt x 7 days - Monitor and follow-up if needed Respiratory crackles of both lungs With history of aspiration pneumonia, PEG tube dependent and bilateral lower lobe crackles on exam. Denies worsening shortness of breath, cough, fever, chills. He has upcoming pulmonology appointment in October. - CXR ordered for evaluation Bilateral leg edema Chronic, intermittent edema. Previously using as needed Lasix 20 mg x 3 days each episode. Edema is mild. Patient notices worse since medication increased his daily water intake. - Continue supportive measures; keep legs elevated, pump feet, compression stockings - Check CMP Subjective: Amy Sun is a 74 y.o. male Chief Complaint Patient presents with Follow-up Pt here for a 3 month follow up. Pt c/o left eye watery and drainage. Pt's also stated that the visiting nurse informed her that pt's lungs are very crackling with his left lung being worse. Patient presents for follow-up. He is accompanied by his . For a few days, patient has experienced L eye watering and matting in the mornings. Blurred vision when matted, patient clears after rubbing and clearing the matter. He denies pain. Endorses mild itching. Patient reports his visiting nurse heard crackling in L lung today on exam. He denies worsening shortness of breath, cough, fever, chills. He does have a history of aspiration pneumonia due to dysphagia, G-tube dependent. He has mild edema of both legs for several months. Noticing it more so now that his travel registered nurse pacu has increased his water intake. He has PEG tube dependent, on tube feed, monitored carefully by nutrition. The following portions of the patient's history were reviewed and updated as appropriate: allergies, current medications, past family history, past medical history, past social history, past surgical history and problem list. Review of Systems Objective: PACU Vitals 09/14/24 1239 BP: 124/82 Pulse: (!) 59 Resp: 14 Temp: 97.9 degrees F (36.6 degrees C) SpO2: 90% Physical Exam Constitutional: General: He is not in acute distress. Appearance: Normal appearance. He is not toxic-appearing or diaphoretic. HENT: Head: Normocephalic and atraumatic. Eyes: General: Left eye: Discharge present. Conjunctiva/sclera: Left eye: Left conjunctiva is injected. Cardiovascular: Rate and Rhythm: Normal rate and regular rhythm. Pulmonary: Effort: Pulmonary effort is normal. No respiratory distress. Breath sounds: Examination of the right-lower field reveals rhonchi. Examination of the left-lower field reveals rhonchi. Rhonchi present. No wheezing. Skin: General: Skin is warm and dry. Neurological: Mental Status: He is alert. Psychiatric: Mood and Affect: Mood normal. For any new medications prescribed today, patient was educated about indications for the medication, how to take the medication and potential side effects of the medications. My ongoing relationship with Amy Sun requires continued responsibility and cognitive effort of being the focal point for all services related to chronic condition(s). Ulices Clark, DO AUTHENTICATED BY ULICES CLARK, ON 09/19/2024 00:04:43 [facility] 09-06-2024 History of Present illness Narrative NUTRITION THERAPY ONCOLOGY NOTE Reassessment RECOMMENDED MALNUTRITION DIAGNOSIS: SEVERE PROTEIN-CALORIE MALNUTRITION ETIOLOGIES: In the context of Chronic Illness or Injury based on: Insufficient Energy Intake: Less than 75% energy intake compared to estimated needs for greater than or equal to 1 month Muscle Loss Severe Loss Some elements copied from my note on 08/16/24, have been updated and all reflect current decision making from today, 09/06/2024 Nutrition Diagnosis: Increased nutrient needs related to metabolic stress and catabolic effects of cancer as evidenced by NPO status and exclusive reliance on enteral nutrition to meet all energy and protein requirements. Nutrition Intervention: Formula Transition: Compleat Standard 1.4 expected to arrive today. Plan to transition back to Compleat Std 1.4 as primary enteral formula once available. Micronutrient Repletion: Resume Compleat Std 1.4 to support fiber intake and a more complete micronutrient profile. Nutrition Monitoring & Evaluation: weight status, bowel regulation, hydration status, tolerance to nutrition support (ONS/EN), biochemical markers, management of nutrition impact symptoms. Observe for any changes in GI tolerance (e.g., stool pattern, bloating) during transition. Monitor hydration status and adjust free water as needed. Date of last encounter: 08/09/24 Patient met goal(s): Partially Interval History: Patient continues to maintain adequate hydration status with approximately 45 oz of free water daily in addition to enteral nutrition, an improvement from last month with hypernatremia. No evidence of significant ascites. Due to a national shortage, patient has been receiving Boost Very High Calorie (VHC) exclusively for the past month in place of Compleat Standard 1.4. Tolerance to Boost VHC has been adequate, though long-term use may limit fiber and micronutrient diversity. Feeding tube replacement is planned, and caregiver (spouse) will be trained by the surgical team to manage balloon catheter replacement at home. Labs: Labs reviewed today show stable electrolytes and protein status. Mildly elevated BUN may reflect increased protein load or marginal dehydration. No acute concerns at this time Food Insecurity Screening: Food Insecurity: No Food Insecurity (07/05/2024) Received from [facility] NCSS - Food Insecurity Worried About Running Out of Food in the Last Year: No Ran Out of Food in the Last Year: No Readiness to Learn: Cognitive ability: Alert and oriented Motivation to learn: Interested Family support: High - Very involved in pt care Instruction provided to: Patient and Spouse Patient learns best by: Multiple Methods Factors affecting learning: Cultural Factors: None Physical limitations affecting learning: None Educational materials provided: None this visit Anthropometrics: Height: Last 1 Encounter Ht Readings: Date: Ht: 07/23/2023 188 cm (6' 2.02) Current weight: Last 1 Encounter Wt Readings: Date: Wt: 08/09/2024 82.1 kg (181 lb) Estimated body mass index is 23.23 kg/m as calculated from the following: Height as of 07/23/23: 188 cm (6' 2.02). Weight as of 08/09/24: 82.1 kg (181 lb). Resting Metabolic Rate: 1636 Weight Change: pt has weight gain from june; though has frequent fluid shifts with ascites. Estimated Nutritional needs: Dosing Weight: 82 kg Estimated kilocalorie needs: 2,050-2,460 kilocalories determined by 25-30 kcal/kg Estimated protein needs: 98.4-123.0 grams determined by 1.2-1.5 g/kg Dosing weight Estimated fluid needs: 2,870 milliliters based on 35 mL/kg Nutrition Focused Physical Exam: Unable to perform exam due to concerns for compromising current medical condition, will re-attempt during reassessment. Potential Signs of Inflammation: chronic condition Need for Follow up: 3 months Referred/Supervised by: Dr. Nitin LEMA Billing Type: Re-assess 2 units Total Time (mins): 30 SIGNATURE: Zoya Hillman RD PATIENT NAME: Amy Sun DATE: September 06, 2024 TIME: 8:31 AM documented in this encounter [facility] 09-06-2024 Note HNO ID: [id number] Author: ZOYA HILLMAN RD Service: ? Author Type: Registered Dietitian Type: Progress Notes Filed: 09/06/2024 14:25 Note Text: NUTRITION THERAPY ONCOLOGY NOTE Reassessment RECOMMENDED MALNUTRITION DIAGNOSIS: SEVERE PROTEIN-CALORIE MALNUTRITION ETIOLOGIES: In the context of Chronic Illness or Injury based on: Insufficient Energy Intake: Less than 75% energy intake compared to estimated needs for greater than or equal to 1 month Muscle Loss Severe Loss Some elements copied from my note on 08/16/24, have been updated and all reflect current decision making from today, 09/06/2024 Nutrition Diagnosis: Increased nutrient needs related to metabolic stress and catabolic effects of cancer as evidenced by NPO status and exclusive reliance on enteral nutrition to meet all energy and protein requirements. Nutrition Intervention: Formula Transition: Compleat Standard 1.4 expected to arrive today. Plan to transition back to Compleat Std 1.4 as primary enteral formula once available. Micronutrient Repletion: Resume Compleat Std 1.4 to support fiber intake and a more complete micronutrient profile. Nutrition Monitoring AND Evaluation: weight status, bowel regulation, hydration status, tolerance to nutrition support (ONS/EN), biochemical markers, management of nutrition impact symptoms. Observe for any changes in GI tolerance (e.g., stool pattern, bloating) during transition. Monitor hydration status and adjust free water as needed. Date of last encounter: 08/09/24 Patient met goal(s): Partially Interval History: Patient continues to maintain adequate hydration status with approximately 45 oz of free water daily in addition to enteral nutrition, an improvement from last month with hypernatremia. No evidence of significant ascites. Due to a national shortage, patient has been receiving Boost Very High Calorie (VHC) exclusively for the past month in place of Compleat Standard 1.4. Tolerance to Boost VHC has been adequate, though long-term use may limit fiber and micronutrient diversity. Feeding tube replacement is planned, and caregiver (spouse) will be trained by the surgical team to manage balloon catheter replacement at home. Labs: Labs reviewed today show stable electrolytes and protein status. Mildly elevated BUN may reflect increased protein load or marginal dehydration. No acute concerns at this time Food Insecurity Screening: Food Insecurity: No Food Insecurity (07/05/2024) Received from [facility] NCSS - Food Insecurity Worried About Running Out of Food in the Last Year: No Ran Out of Food in the Last Year: No Readiness to Learn: Cognitive ability: Alert and oriented Motivation to learn: Interested Family support: High - Very involved in pt care Instruction provided to: Patient and Spouse Patient learns best by: Multiple Methods Factors affecting learning: Cultural Factors: None Physical limitations affecting learning: None Educational materials provided: None this visit Anthropometrics: Height: Last 1 Encounter Ht Readings: Date: Ht: 07/23/2023 188 cm (6' 2.02) Current weight: Last 1 Encounter Wt Readings: Date: Wt: 08/09/2024 82.1 kg (181 lb) Estimated body mass index is 23.23 kg/m? as calculated from the following: Height as of 07/23/23: 188 cm (6' 2.02). Weight as of 08/09/24: 82.1 kg (181 lb). Resting Metabolic Rate: 1636 Weight Change: pt has weight gain from june; though has frequent fluid shifts with ascites. Estimated Nutritional needs: Dosing Weight: 82 kg Estimated kilocalorie needs: 2,050-2,460 kilocalories determined by 25-30 kcal/kg Estimated protein needs: 98.4-123.0 grams determined by 1.2-1.5 g/kg Dosing weight Estimated fluid needs: 2,870 milliliters based on 35 mL/kg Nutrition Focused Physical Exam: Unable to perform exam due to concerns for compromising current medical condition, will re-attempt during reassessment. Potential Signs of Inflammation: chronic condition Need for Follow up: 3 months Referred/Supervised by: Dr. Nitin LEMA Billing Type: Re-assess 2 units Total Time (mins): 30 SIGNATURE: Zoya Hillman RD PATIENT NAME: Amy Sun DATE: September 06, 2024 TIME: 8:31 AM [facility] 09-06-2024 Note Education (NUTRMA) ---- AMY SUN ([id number]) 1950 M Date Time Provider Department 09/06/24 1:30 PM ZOYA HILLMAN Reason for Visit: Nutrition Counseling [76] Primary Visit Diagnosis:Severe protein-calorie malnutrition (HCC) [E43] Other Visit Diagnoses: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) [C01] Multiple lung nodules on CT [R91.8] During your visit today, we recorded the following information about you: Allergies As of Date: 09/06/2024 (No Known Allergies) Date Reviewed: 09/06/2024 Reviewed by: Zoya Hillman RD - Fully Assessed Prescriptions as of 09/06/2024 - apixaban (ELIQUIS) 5 mg tab(s) Take 5 mg by mouth two times a day. - formoterol fumarate (PERFOROMIST) 20 mcg/2 mL nebu Inhale 20 mcg as instructed. - revefenacin (YUPELRI) 175 mcg/3 mL solution for nebulization Inhale 175 mcg as instructed once daily. - tamsulosin (FLOMAX) 0.4 mg Take 0.4 mg by mouth once daily. - famotidine (PEPCID) 20 mg tablet Take 20 mg by mouth. - budesonide (PULMICORT) 0.5 mg/2 mL nebulizer solution Inhale 0.5 mg as instructed. - nut tx, lact-reduced, iron (BOOST VHC) 0.09-2.25 gram-kcal/mL liqd 52 mL by FEEDING TUBE route continuous. [place] with infinity feeding pump. Flush with an additional 33oz of water daily (divided). - iv contrast (will be provided with radiology test) CT Chest W -Inject, intravenously, once for 1 dose.No IV access, insert saline lock prior to the beginning of sedation, infusion, injection of imaging exam. Discontinue saline lock post exam. If Pt. has a central line or IVAD, may access for administration according to line specific nursing protocol. Once exam is complete flush line and de-access according to line specific nursing protocol in the CT contrast administration guidelines link. - iv contrast (will be provided with radiology test) CT ABD/PEL -Inject, intravenously, once for 1 dose.No IV access, insert saline lock prior to the beginning of sedation, infusion, injection of imaging exam. Discontinue saline lock post exam. If Pt. has a central line or IVAD, may access for administration according to line specific nursing protocol. Once exam is complete flush line and de-access according to line specific nursing protocol in the CT contrast administration guidelines link. - enteric contrast (will be provided with radiology test) For CT ABD/PEL W IVCON Routine order Administer, As Directed One Time Only, via Oral, Rectal, both Oral and Rectal, Enteric Tube, Stoma or Indwelling Catheter, Enteric Contrast as designated per enteric contrast guidelines - nutritional supplement-fiber (COMPLEAT 1.5) 0.07 gram-1.5 kcal/mL liqd 80ml/hr of Compleat 1.5 continuously for 24 hours. Use 1 carton of Benecalorie daily. Flush with 200ml water four times per day. - sertraline (ZOLOFT) 25 mg tablet Take 1 tablet by mouth once daily. - furosemide (LASIX) 20 mg tablet Take 20 mg by mouth once daily. - sulindac (CLINORIL) 150 mg tablet - pilocarpine (ISOPTO CARPINE) 2 % ophthalmic solution 1 Drop. - rosuvastatin (CRESTOR) 5 mg tablet Take 5 mg by mouth once daily. - pantoprazole DR (PROTONIX) 40 mg tablet - propylene glycol/peg 400 (BLINK TEARS LUBRICATING) Eye Drops Use 1 Drop in both eyes as needed. - traMADol (ULTRAM) 50 mg tablet Take 1 tablet by mouth twice daily. - testosterone (ANDROGEL) 50 mg/5 g (1%) gel Apply 0.5 Tubes as directed once daily. Encounter Status:Closed by ZOYA HILLMAN on 09/06/24 [facility] 09-02-2024 History of Present illness Narrative Subjective Patient ID: Amy Sun is a 74 y.o. male who presents for Follow-up (Pt presents today as a three month follow up for crohn's colitis and his peg tube. Pt has no complaints symptom huffman, but is complaining about the peg tube placement and some discomfort due to where it's located. ). LUIS Iverson is seen today in routine follow-up. 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 He developed dysphagia to the point where he is no longer able to eat up to a year ago. He is doing well request device to change Lake button as there is some difficulty hooking his appliance up to it. The tube itself appears discolored internally and is oxidized him. states she is able to continue feeding and push meds through but is becoming increasing more difficult. Lake button was placed in March of this year Review of Systems Constitutional: Negative for chills, fever and unexpected weight change. HENT: Negative for congestion and trouble swallowing. Respiratory: Negative for cough, shortness of breath and wheezing. Cardiovascular: Negative for chest pain. Gastrointestinal: Negative for abdominal distention, abdominal pain, blood in stool, constipation, diarrhea, nausea and vomiting. Genitourinary: Negative for difficulty urinating. Musculoskeletal: Negative for arthralgias and joint swelling. Skin: Negative for color change. Neurological: Negative for dizziness, speech difficulty, light-headedness and headaches. Psychiatric/Behavioral: Negative for confusion and sleep disturbance. Objective Physical Exam Constitutional: General: He is awake. Appearance: Normal appearance. HENT: Head: Normocephalic and atraumatic. Nose: Nose normal. Mouth/Throat: Mouth: Mucous membranes are moist. Eyes: Pupils: Pupils are equal, round, and reactive to light. Neck: Thyroid: No thyroid mass. Trachea: Phonation normal. Cardiovascular: Rate and Rhythm: Normal rate and regular rhythm. Heart sounds: Normal heart sounds. Pulmonary: Effort: Pulmonary effort is normal. No respiratory distress. Breath sounds: Normal air entry. No decreased breath sounds, wheezing, rhonchi or rales. Abdominal: General: Bowel sounds are normal. There is no distension. Palpations: Abdomen is soft. Tenderness: There is no abdominal tenderness. Musculoskeletal: Cervical back: Neck supple. Right lower leg: No edema. Left lower leg: No edema. Skin: General: Skin is warm. Capillary Refill: Capillary refill takes less than 2 seconds. Neurological: General: No focal deficit present. Mental Status: He is alert and oriented to person, place, and time. Mental status is at baseline. Cranial Nerves: Cranial nerves 2-12 are intact. Motor: Motor function is intact. Psychiatric: Attention and Perception: Attention and perception normal. Mood and Affect: Mood normal. Speech: Speech normal. Behavior: Behavior normal. Assessment/Plan Diagnoses and all orders for this visit: S/P percutaneous endoscopic gastrostomy (PEG) tube placement (Multi) Pharyngoesophageal dysphagia History of throat cancer Prescription for Lake button 24 [place], 3.5 cm in length was sent to [facility] [place]. Once PEG tube is in position we will arrange appointment in office to show how to change. Vasu Jaimes DO 09/02/24 1:58 PM documented in this encounter [facility] Work Phone: 08-25-2024 History of Present illness Narrative Documents received for pt. Provider reviewed and signed. Faxed back to number provided and sent to [employer] to be scanned to chart. documented in this encounter [facility] 08-23-2024 History of Present illness Narrative Documentation received for pt. Provider reviewed and signed. Faxed back to number provided and sent to [employer] to be scanned to pt chart. documented in this encounter [facility] 08-16-2024 History of Present illness Narrative Radiology Service Progress Note PATIENT NAME: Amy Sun DATE OF SERVICE: August 16, 2024 TIME: 1:27 PM PATIENT IDENTITY VERIFICATION COMPLETED USING TWO (2) IDENTIFIERS: Name and Date of confirmed by patient verbally. FALL SCREENING: Has the patient had 2 falls in the last year or 1 fall with injury or currently using an Ambulatory Assistive Device (Walker, Cane, Wheelchair, Crutches, etc.)? No PATIENT GENDER DATA: Assigned male at PATIENT RELEVANT IMPLANT DATA REVIEWED: Not Applicable PATIENT PRESENTS WITH AN IMPLANTABLE OR ATTACHED SUBSCRIPTION AGENT: No RADIOLOGY DEPARTMENT: CT; Exam(s) Completed: Chest PERIPHERAL IV DATA: Not applicable SIGNED BY: RT Shauna(Chuyita) August 16, 2024 1:27 PM documented in this encounter [facility] 08-16-2024 Note HNO ID: [id number] Author: JESUS ALBERTO PINEDA RT(R) Service: Radiology Author Type: Technologist Type: Progress Notes Filed: 08/16/2024 13:27 Note Text: Radiology Service Progress Note PATIENT NAME: Amy Sun DATE OF SERVICE: August 16, 2024 TIME: 1:27 PM PATIENT IDENTITY VERIFICATION COMPLETED USING TWO (2) IDENTIFIERS: Name and Date of confirmed by patient verbally. FALL SCREENING: Has the patient had 2 falls in the last year or 1 fall with injury or currently using an Ambulatory Assistive Device (Walker, Cane, Wheelchair, Crutches, etc.)? No PATIENT GENDER DATA: Assigned male at PATIENT RELEVANT IMPLANT DATA REVIEWED: Not Applicable PATIENT PRESENTS WITH AN IMPLANTABLE OR ATTACHED SUBSCRIPTION AGENT: No RADIOLOGY DEPARTMENT: CT; Exam(s) Completed: Chest PERIPHERAL IV DATA: Not applicable SIGNED BY: RT Shauna(Chuyita) August 16, 2024 1:27 PM [facility] 08-11-2024 History of Present illness Narrative Images from the original note were not included. Subjective Patient ID: Amy Sun is a 74 y.o. male. Chief Complaint Patient presents with Transition Of Care Discharged from [facility] Amy is a 74-year-old male who presents to office with his after recent discharge from hospitalization. Recent admission 07/30/24 to 07/31/24 to [facility] for fevers and cough. He also has a history of frequent aspiration pneumonia due to tube feedings. States throughout the hospitalization, he was switched from Advair to Spiriva, has noted relief with this medication however did not take it yesterday as he came home from watching [employer] game and fell asleep. Does have appointment with [facility] pulmonology next month. Has been using home oxygen, however presents to office on room air. brings concern as he has been sleeping much more since being home from the hospital. States he will sleep all day if able. also tells me after recent admission sodium levels were very high therefore was instructed by oncology team to increase water intake to 1200 mL daily. States she has been doing this and repeat labs on Friday was normal. He has a PMH of HTN, HLD, GERD, BPH, DJD, COPD, hepatic steatosis, insomnia, former tobacco use and tongue CA, phayrngeoesophageal dysphagia s/p PEG tube placement (04/04/23). The following portions of the patient's history were reviewed and updated as appropriate: allergies, current medications, past family history, past medical history, past social history, past surgical history, and problem list. 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 Chronic kidney disease (CKD) stage G1/A2, glomerular filtration rate (GFR) equal to or greater than 90 mL/min/1.73 square meter and albuminuria creatinine ratio between 30-299 mg/g COPD (chronic obstructive pulmonary disease) (HCC) ED (erectile dysfunction) Edema leg bilateral GERD (gastroesophageal reflux disease) Hepatic steatosis Hyperlipidemia Hypertension Insomnia Migraine without aura and without status migrainosus, not intractable 09/25/2023 Prediabetes Past Surgical History: Procedure Laterality Date ABDOMINAL SURGERY CATARACT EXTRACTION BILATERAL W/ ANTERIOR VITRECTOMY CATARACT EXTRACTION BILATERAL W/ ANTERIOR VITRECTOMY Bilateral CT COLONOSCOPY 03/25/[address]22 CT COLONOSCOPY LAPAROSCOPIC INGUINAL HERNIA REPAIR [address] Holder for tongue cancer PEG TUBE PLACEMENT 04/04/2023 VASECTOMY Social History[1] Family History Problem Relation Age of Onset Stroke Father Heart disease Father Coronary artery disease Father Diabetes Sister Coronary artery disease Brother Allergies[2] Outpatient Medications as of 08/11/2024 Medication Sig albuterol 90 mcg/actuation inhaler Inhale 2 (two) puffs every 6 (six) hours as needed for shortness of breath or wheezing . apixaban (Eliquis) 5 mg Tab 1 (one) tablet (5 mg total) by Per G Tube route 2 (two) times a day . apixaban (ELIQUIS) 5 mg Tab 1 (one) tablet (5 mg total) by Per G Tube route 2 (two) times a day . celecoxib (ELYXYB) 120 mg/4.8 mL (25 mg/mL) Soln Take 120 mg per G-tube daily . famotidine (PEPCID) 20 MG tablet Take 1 (one) tablet (20 mg total) by mouth 2 (two) times a day . fluticasone propionate (FLONASE) 50 mcg/actuation nasal spray Instill 2 (two) sprays into each nostril daily . glucose 4 g chewable tablet Chew and Swallow 4 (four) tablets (16 g total) as needed for low blood sugar . Lactobacillus rhamnosus GG (CULTURELLE) 10 billion cell capsule Take 1 (one) capsule by mouth daily . metoclopramide (REGLAN) 5 MG tablet Take 1 (one) tablet (5 mg total) by mouth 2 (two) times a day Take 30 minutes before meal . sertraline (ZOLOFT) 50 MG tablet Take 1 (one) tablet (50 mg total) by mouth daily . sucralfate (CARAFATE) 100 mg/mL suspension 10 mL (1 g total) by Per G Tube route 4 (four) times a day for 7 days . SUMAtriptan (IMITREX) 50 MG tablet Take 1 (one) tablet (50 mg total) by mouth every 2 (two) hours as needed for migraine Max of 200 mg in 24hrs, do not treat more than 3 times a week . tamsulosin (FLOMAX) 0.4 mg capsule Take 1 (one) capsule (0.4 mg total) by mouth daily . (Patient taking differently: Take 1 (one) capsule (0.4 mg total) by mouth 2 (two) times a day .) traMADol (ULTRAM) 50 mg tablet Take 1 (one) tablet (50 mg total) by mouth every 4 (four) hours as needed for pain (Days supply per fill: . budesonide (PULMICORT) 0.5 mg/2 mL nebulizer solution Take 2 mL (0.5 mg total) by nebulization daily . (Patient not taking: Reported on 08/11/2024 .) formoterol fumarate (PERFOROMIST) 20 mcg/2 mL nebulizer solution Take 2 mL (20 mcg total) by nebulization . (Patient not taking: Reported on 08/11/2024 .) Review of Systems Objective BP (!) 94/59 (BP Location: Left arm, Patient Position: Sitting, BP Cuff Size: Adult) Pulse 68 Resp 12 Ht 6' 1 Wt 80.7 kg (178 lb) SpO2 93% Comment: 2L of O2 placed on pt. BMI 23.48 kg/m Physical Exam Constitutional: General: He is not in acute distress. Appearance: He is not toxic-appearing. HENT: Ears: Comments: Hard of hearing Cardiovascular: Rate and Rhythm: Normal rate. Pulmonary: Effort: Pulmonary effort is normal. No respiratory distress. Breath sounds: No wheezing or rales. Comments: Diminished breath sounds throughout Abdominal: General: Bowel sounds are normal. There is no distension. Tenderness: There is no guarding or rebound. Comments: PEG tube in place no surrounding erythema or excoriation noted Musculoskeletal: Right lower leg: No edema. Left lower leg: No edema. Skin: General: Skin is warm and dry. Neurological: Mental Status: He is alert and oriented to person, place, and time. Psychiatric: Mood and Affect: Mood normal. Behavior: Behavior normal. Thought Content: Thought content normal. Judgment: Judgment normal. Assessment/Plan: Diagnoses and all orders for this visit: Acute on chronic respiratory failure with hypoxia (HCC) - methylPREDNISolone (MEDROL DOSEPACK) 4 mg tablet; Follow package directions . Upon arrival to office, patient's oxygenation level was 84-86%, did place him on 2 L nasal cannula oxygen isidra to 93%. Patient does wear home O2. Was also on oxygen throughout hospital stay. Today he did not have any signs of respiratory distress no nasal flaring, retractions noted on exam. Lungs are diminished throughout. He does have appointment with pulmonology in August which greatly encouraged to keep. As for increased fatigue, we discussed could be multifactorial. However do have concern for sleep apnea and encouraged to complete testing which was ordered and follow-up with pulmonology. Due to acute on chronic hypoxia did place him on steroid Dosepak, encouraged to take his Spiriva daily as prescribed and use albuterol inhaler as needed. is going to continue monitoring oxygen at home, strict ER precautions discussed with patient and . Discussed if oxygen below 88 would highly encouraged going to emergency department. Patient and verbalized understanding. Reviewed recent laboratory levels and imaging with patient and from recent hospitalization. He does have appointment with PCP next month which encouraged to keep. Please note: Portions of this chart may have been created with [employer] voice recognition software. Occasional wrong-word or sound-like substitutions may have occurred due to inherent limitations of the voice recognition software. Please read the chart carefully and recognize, using context, where the substitutions have occurred. Electronically signed by JERAD Verdin 4:18 PM [1] Social History Tobacco Use Smoking status: Former Current packs/day: 0.00 Types: Cigarettes Start date: 1960 Quit date: 2008 Years since quittin.4 Passive exposure: Past Smokeless tobacco: Never Vaping Use Vaping status: Never Used Substance Use Topics Alcohol use: Not Currently Drug use: Not Currently [2] No Known Allergies documented in this encounter [facility] 08-11-2024 Note Subjective Patient ID: Amy Sun is a 74 y.o. male. Chief Complaint Patient presents with Transition Of Care Discharged from [facility] Amy is a 74-year-old male who presents to office with his after recent discharge from hospitalization. Recent admission 07/30/24 to 07/31/24 to [facility] for fevers and cough. He also has a history of frequent aspiration pneumonia due to tube feedings. States throughout the hospitalization, he was switched from Advair to Spiriva, has noted relief with this medication however did not take it yesterday as he came home from watching [employer] game and fell asleep. Does have appointment with [facility] pulmonology next month. Has been using home oxygen, however presents to office on room air. brings concern as he has been sleeping much more since being home from the hospital. States he will sleep all day if able. also tells me after recent admission sodium levels were very high therefore was instructed by oncology team to increase water intake to 1200 mL daily. States she has been doing this and repeat labs on Friday was normal. He has a PMH of HTN, HLD, GERD, BPH, DJD, COPD, hepatic steatosis, insomnia, former tobacco use and tongue CA, phayrngeoesophageal dysphagia s/p PEG tube placement (04/04/23). The following portions of the patient's history were reviewed and updated as appropriate: allergies, current medications, past family history, past medical history, past social history, past surgical history, and problem list. 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 Chronic kidney disease (CKD) stage G1/A2, glomerular filtration rate (GFR) equal to or greater than 90 mL/min/1.73 square meter and albuminuria creatinine ratio between 30-299 mg/g COPD (chronic obstructive pulmonary disease) (HCC) ED (erectile dysfunction) Edema leg bilateral GERD (gastroesophageal reflux disease) Hepatic steatosis Hyperlipidemia Hypertension Insomnia Migraine without aura and without status migrainosus, not intractable 09/25/2023 Prediabetes Past Surgical History: Procedure Laterality Date ABDOMINAL SURGERY CATARACT EXTRACTION BILATERAL W/ ANTERIOR VITRECTOMY CATARACT EXTRACTION BILATERAL W/ ANTERIOR VITRECTOMY Bilateral CT COLONOSCOPY 03/25/2022 CT COLONOSCOPY LAPAROSCOPIC INGUINAL HERNIA REPAIR [address] Holder for tongue cancer PEG TUBE PLACEMENT 04/04/2023 VASECTOMY Social History[1] Family History Problem Relation Age of Onset Stroke Father Heart disease Father Coronary artery disease Father Diabetes Sister Coronary artery disease Brother Allergies[2] Outpatient Medications as of 08/11/2024 Medication Sig albuterol 90 mcg/actuation inhaler Inhale 2 (two) puffs every 6 (six) hours as needed for shortness of breath or wheezing . apixaban (Eliquis) 5 mg Tab 1 (one) tablet (5 mg total) by Per G Tube route 2 (two) times a day . apixaban (ELIQUIS) 5 mg Tab 1 (one) tablet (5 mg total) by Per G Tube route 2 (two) times a day . celecoxib (ELYXYB) 120 mg/4.8 mL (25 mg/mL) Soln Take 120 mg per G-tube daily . famotidine (PEPCID) 20 MG tablet Take 1 (one) tablet (20 mg total) by mouth 2 (two) times a day . fluticasone propionate (FLONASE) 50 mcg/actuation nasal spray Instill 2 (two) sprays into each nostril daily . glucose 4 g chewable tablet Chew and Swallow 4 (four) tablets (16 g total) as needed for low blood sugar . Lactobacillus rhamnosus GG (CULTURELLE) 10 billion cell capsule Take 1 (one) capsule by mouth daily . metoclopramide (REGLAN) 5 MG tablet Take 1 (one) tablet (5 mg total) by mouth 2 (two) times a day Take 30 minutes before meal . sertraline (ZOLOFT) 50 MG tablet Take 1 (one) tablet (50 mg total) by mouth daily . sucralfate (CARAFATE) 100 mg/mL suspension 10 mL (1 g total) by Per G Tube route 4 (four) times a day for 7 days . SUMAtriptan (IMITREX) 50 MG tablet Take 1 (one) tablet (50 mg total) by mouth every 2 (two) hours as needed for migraine Max of 200 mg in 24hrs, do not treat more than 3 times a week . tamsulosin (FLOMAX) 0.4 mg capsule Take 1 (one) capsule (0.4 mg total) by mouth daily . (Patient taking differently: Take 1 (one) capsule (0.4 mg total) by mouth 2 (two) times a day .) traMADol (ULTRAM) 50 mg tablet Take 1 (one) tablet (50 mg total) by mouth every 4 (four) hours as needed for pain (Days supply per fill: . budesonide (PULMICORT) 0.5 mg/2 mL nebulizer solution Take 2 mL (0.5 mg total) by nebulization daily . (Patient not taking: Reported on 08/11/2024 .) formoterol fumarate (PERFOROMIST) 20 mcg/2 mL nebulizer solution Take 2 mL (20 mcg total) by nebulization . (Patient not taking: Reported on 08/11/2024 .) Review of Systems Objective BP (!) 94/59 (BP Location: Left arm, Patient Position: Sitting, BP Cuff Size: Adult) Pulse 68 Res (more content not included)... [facility] 08-09-2024 History of Present illness Narrative Nutrition Therapy Initial Assessment Nutrition Diagnosis: Inappropriate intake of enteral nutrition regimen related to patient-reported barriers to modifying EN schedule (perceived restriction/tied down) as evidenced by reluctance to reduce rate/increase frequency despite ongoing symptoms and clinical indications. RECOMMENDED MALNUTRITION DIAGNOSIS: SEVERE PROTEIN-CALORIE MALNUTRITION NUTRITION CARE PLAN Nutrition Intervention 08/09/2024: Enteral Nutrition Management: Continue cycled enteral nutrition as ordered: 3 cartons Boost VHC + 2 cartons Compleat Standard 1.4 at 90ml/hr Monitor tolerance and consider transition to more evenly distributed feedings if clinical status permits and patient agrees. Fluid Management: Adjust free water flushes to 1200 mL/day to maintain hydration and support electrolyte balance. May run water via pump at night at 60ml/hr - 30 degree elevated HOB Reinforce importance of fluid goals to prevent recurrence of hypernatremia/hyperchloremia. Coordination of Care: Communicate with interdisciplinary team (MD, nursing, speech therapy) regarding recurrent pneumonia and potential adjustments to feeding regimen. Nutrition Monitoring & Evaluation: Biochemical Data Fluid Intake GI and Respiratory Tolerance Weight and Hydration Status Patient Adherence and Preferences: Reassess willingness to trial schedule modifications. Assessment Summary: Patient presents for follow-up regarding PEG and nocturnally cycled continuous enteral nutrition following treatment for tongue cancer. Patient remains NPO and continues to experience recurrent pneumonia. Recently hospitalized at [facility] due to elevated troponin levels. Patient reports ongoing symptoms of coughing with excessive phlegm. Expresses reluctance to adjust EN regimen (reduce rate/increase frequency) due to perception of being tied down. Diet History: Enteral Nutrition: 3 cartons Boost VHC + 2 cartons Compleat Standard 1.4 Water Intake: ~1500 mL (3 bottles) Free Water Flushes: Increased from 750 mL to 1500 mL over the weekend to address hypernatremia and hyperchloremia, with reported improvement in labs. Plan: Continue current enteral nutrition regimen as ordered. Adjust total daily free water flushes to 1200 mL/day to align with patient's tolerance and lifestyle preferences. Labs: Latest Reference Range & Units 08/05/24 10:24 08/09/24 11:21 Sodium 136 - 144 mmol/L 150 (H) 139 Potassium 3.7 - 5.1 mmol/L 4.3 4.0 Chloride 98 - 107 mmol/L 110 (H) 98 CO2 22 - 30 mmol/L 28 31 (H) (H): Data is abnormally high Anthropometrics: Height: Last Ht 07/23/23 : 188 cm (6' 2.02) Current weight: Last Wt 08/09/24 : 82.1 kg (181 lb) There is no height or weight on file to calculate BMI. RMR can't be calculated - Weight unrecorded in last 120 days. Food Insecurity: No Food Insecurity (07/05/2024) Received from [facility] NCSS - Food Insecurity Worried About Running Out of Food in the Last Year: No Ran Out of Food in the Last Year: No Education Materials Provided: None this visit READINESS TO LEARN Cognitive ability: Alert and oriented Motivation to learn: Interested Family support: High - Very involved in pt care Instruction provided to: Patient and Spouse Patient learns best by: Multiple Methods Factors affecting learning: None Physical limitations affecting learning: None Referred/Supervised by: Dr. Nitin LEMA Billing Type: Re-assess 2 units Total Time (mins): 45 SIGNATURE: Zoya Hillman RD PATIENT NAME: Amy Sun DATE: August 09, 2024 TIME: 11:02 AM PAGER: documented in this encounter [facility] 08-09-2024 Note Education (NUTRMA) ---- DINOAMY ([id number]) 1950 M Date Time Provider Department 08/09/24 12:30 PM ZOYA HILLMAN Reason for Visit: Nutrition Assessment [1591] Primary Visit Diagnosis:Severe protein-calorie malnutrition (HCC) [E43] Other Visit Diagnoses: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) [C01] History of tongue cancer [Z85.810] During your visit today, we recorded the following information about you: Allergies As of Date: 08/09/2024 (No Known Allergies) Date Reviewed: 08/09/2024 Reviewed by: Zoya Hillman RD - Fully Assessed Prescriptions as of 08/09/2024 - apixaban (ELIQUIS) 5 mg tab(s) Take 5 mg by mouth two times a day. - formoterol fumarate (PERFOROMIST) 20 mcg/2 mL nebu Inhale 20 mcg as instructed. - revefenacin (YUPELRI) 175 mcg/3 mL solution for nebulization Inhale 175 mcg as instructed once daily. - tamsulosin (FLOMAX) 0.4 mg Take 0.4 mg by mouth once daily. - famotidine (PEPCID) 20 mg tablet Take 20 mg by mouth. - budesonide (PULMICORT) 0.5 mg/2 mL nebulizer solution Inhale 0.5 mg as instructed. - nut tx, lact-reduced, iron (BOOST VHC) 0.09-2.25 gram-kcal/mL liqd 52 mL by FEEDING TUBE route continuous. [place] with infinity feeding pump. Flush with an additional 33oz of water daily (divided). - iv contrast (will be provided with radiology test) CT Chest W -Inject, intravenously, once for 1 dose.No IV access, insert saline lock prior to the beginning of sedation, infusion, injection of imaging exam. Discontinue saline lock post exam. If Pt. has a central line or IVAD, may access for administration according to line specific nursing protocol. Once exam is complete flush line and de-access according to line specific nursing protocol in the CT contrast administration guidelines link. - iv contrast (will be provided with radiology test) CT ABD/PEL -Inject, intravenously, once for 1 dose.No IV access, insert saline lock prior to the beginning of sedation, infusion, injection of imaging exam. Discontinue saline lock post exam. If Pt. has a central line or IVAD, may access for administration according to line specific nursing protocol. Once exam is complete flush line and de-access according to line specific nursing protocol in the CT contrast administration guidelines link. - enteric contrast (will be provided with radiology test) For CT ABD/PEL W IVCON Routine order Administer, As Directed One Time Only, via Oral, Rectal, both Oral and Rectal, Enteric Tube, Stoma or Indwelling Catheter, Enteric Contrast as designated per enteric contrast guidelines - nutritional supplement-fiber (COMPLEAT 1.5) 0.07 gram-1.5 kcal/mL liqd 80ml/hr of Compleat 1.5 continuously for 24 hours. Use 1 carton of Benecalorie daily. Flush with 200ml water four times per day. - sertraline (ZOLOFT) 25 mg tablet Take 1 tablet by mouth once daily. - furosemide (LASIX) 20 mg tablet Take 20 mg by mouth once daily. - sulindac (CLINORIL) 150 mg tablet - pilocarpine (ISOPTO CARPINE) 2 % ophthalmic solution 1 Drop. - rosuvastatin (CRESTOR) 5 mg tablet Take 5 mg by mouth once daily. - pantoprazole DR (PROTONIX) 40 mg tablet - propylene glycol/peg 400 (BLINK TEARS LUBRICATING) Eye Drops Use 1 Drop in both eyes as needed. - traMADol (ULTRAM) 50 mg tablet Take 1 tablet by mouth twice daily. - testosterone (ANDROGEL) 50 mg/5 g (1%) gel Apply 0.5 Tubes as directed once daily. Encounter Status:Closed by ZOYA HILLMAN on 08/09/24 [facility] 08-09-2024 Note HNO ID: [id number] Author: ZOYA HILLMAN RD Service: ? Author Type: Registered Dietitian Type: Progress Notes Filed: 08/09/2024 16:31 Note Text: Nutrition Therapy Initial Assessment Nutrition Diagnosis: Inappropriate intake of enteral nutrition regimen related to patient-reported barriers to modifying EN schedule (perceived restriction/tied down) as evidenced by reluctance to reduce rate/increase frequency despite ongoing symptoms and clinical indications. RECOMMENDED MALNUTRITION DIAGNOSIS: SEVERE PROTEIN-CALORIE MALNUTRITION NUTRITION CARE PLAN Nutrition Intervention 08/09/2024: Enteral Nutrition Management: Continue cycled enteral nutrition as ordered: 3 cartons Boost VHC + 2 cartons Compleat Standard 1.4 at 90ml/hr Monitor tolerance and consider transition to more evenly distributed feedings if clinical status permits and patient agrees. Fluid Management: Adjust free water flushes to 1200 mL/day to maintain hydration and support electrolyte balance. May run water via pump at night at 60ml/hr - 30 degree elevated HOB Reinforce importance of fluid goals to prevent recurrence of hypernatremia/hyperchloremia. Coordination of Care: Communicate with interdisciplinary team (MD, nursing, speech therapy) regarding recurrent pneumonia and potential adjustments to feeding regimen. Nutrition Monitoring AND Evaluation: Biochemical Data Fluid Intake GI and Respiratory Tolerance Weight and Hydration Status Patient Adherence and Preferences: Reassess willingness to trial schedule modifications. Assessment Summary: Patient presents for follow-up regarding PEG and nocturnally cycled continuous enteral nutrition following treatment for tongue cancer. Patient remains NPO and continues to experience recurrent pneumonia. Recently hospitalized at [facility] due to elevated troponin levels. Patient reports ongoing symptoms of coughing with excessive phlegm. Expresses reluctance to adjust EN regimen (reduce rate/increase frequency) due to perception of being ?tied down.? Diet History: Enteral Nutrition: 3 cartons Boost VHC + 2 cartons Compleat Standard 1.4 Water Intake: ~1500 mL (3 bottles) Free Water Flushes: Increased from 750 mL to 1500 mL over the weekend to address hypernatremia and hyperchloremia, with reported improvement in labs. Plan: Continue current enteral nutrition regimen as ordered. Adjust total daily free water flushes to 1200 mL/day to align with patient's tolerance and lifestyle preferences. Labs: Latest Reference Range AND Units 08/05/24 10:24 08/09/24 11:21 Sodium 136 - 144 mmol/L 150 (H) 139 Potassium 3.7 - 5.1 mmol/L 4.3 4.0 Chloride 98 - 107 mmol/L 110 (H) 98 CO2 22 - 30 mmol/L 28 31 (H) (H): Data is abnormally high Anthropometrics: Height: Last Ht 07/23/23 : 188 cm (6' 2.02) Current weight: Last Wt 08/09/24 : 82.1 kg (181 lb) There is no height or weight on file to calculate BMI. RMR can't be calculated - Weight unrecorded in last 120 days. Food Insecurity: No Food Insecurity (07/05/2024) Received from [facility] NCSS - Food Insecurity Worried About Running Out of Food in the Last Year: No Ran Out of Food in the Last Year: No Education Materials Provided: None this visit READINESS TO LEARN Cognitive ability: Alert and oriented Motivation to learn: Interested Family support: High - Very involved in pt care Instruction provided to: Patient and Spouse Patient learns best by: Multiple Methods Factors affecting learning: None Physical limitations affecting learning: None Referred/Supervised by: Dr. Nitin LEMA Billing Type: Re-assess 2 units Total Time (mins): 45 SIGNATURE: Zoya Hillman RD PATIENT NAME: Amy Sun DATE: August 09, 2024 TIME: 11:02 AM PAGER: [facility] 08-09-2024 History of Present illness Narrative HISTORY OF PRESENT ILLNESS: Mr. 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 Patient that time was treated with chemoradiation therapy. He completed radiation therapy in February 2009. He was treated on the care Dr. Lennon. He was last seen by him on September 2017. CURRENT STATUS: Since his last visit, he was admitted in 06/2024 for bilateral pneumonia and he was readmitted in 07/2024 for elevated troponin. He was admitted in 07/30/2024 and he had fever and cough. He was found to be hypotensive and with an elevated troponin. He was admitted and d/c home. He was told to restrict his fluids. He was was found to have a high sodium. His fluids were liberalized. He now returns ECOG PERFORMANCE STATUS: 0- Fully active, able to carry on all pre-disease performance w/o restriction. Social History Tobacco Use Smoking status: Former Current packs/day: 0.00 Average packs/day: 2.0 packs/day for 46.0 years (92.0 ttl pk-yrs) Types: Cigarettes Start date: 09/19/1962 Quit date: 09/19/2008 Years since quittin.8 Smokeless tobacco: Never Tobacco comments: Quit Vaping Use Vaping status: Never Used Substance Use Topics Alcohol use: No Drug use: No FAMILY HISTORY Problem Relation Age of Onset Cataract Mother other (Dementia) Mother Coronary Artery Disease Father Heart Father Cataract Father Glaucoma Father Detached Retina No Family History Macular Degen No Family History Blindness No Family History Amblyopia No Family History Strabismus No Family History PAST MEDICAL HISTORY Diagnosis Date Epiretinal membrane (ERM) of left eye Erythrocytosis 09/15/2014 Hyperlipemia 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 CONSTITUTIONAL: Awake, alert, oriented. HEAD (Incl. face): Normocephalic; Atraumatic. EYES: Pupils are reactive. No scleral icterus. HEENT: No oral exudates. NECK: No thyromegaly. No JVD. Evidence of neck surgery. HEMATOLOGY/LYMPHATIC: No petechiae or purpura. No tender or palpable lymph nodes in the cervical, supraclavicular, axillary or inguinal areas. RESPIRATORY: Lungs are clear to auscultation. CARDIOVASCULAR: Regular rate and rhythm. 2 + radial pulse. ABDOMEN: Non-tender, soft, positive bowel sounds. BACK/SPINE: No kyphosis or scoliosis. Non tender to palpation. MUSCULOSKELETAL: No tenderness or swelling, normal range of motion without obvious weakness. EXTREMITIES: No cyanosis, clubbing INTEGUMENTARY: No rashes or masses. NEURO: No sensory or motor deficits, normal cerebellar function, normal gait, cranial nerves intact. PSYCHIATRIC: Pleasant affect. No signs of agitation. LABS: Latest Reference Range & Units 08/05/24 10:24 Sodium 136 - 144 mmol/L 150 (H) Potassium 3.7 - 5.1 mmol/L 4.3 Chloride 98 - 107 mmol/L 110 (H) CO2 22 - 30 mmol/L 28 BUN 9 - 24 mg/dL 38 (H) Creatinine 0.73 - 1.22 mg/dL 0.70 (L) Glucose 74 - 99 mg/dL 128 (H) Protein, Total 6.3 - 8.0 g/dL 6.9 Calcium 8.5 - 10.2 mg/dL 10.1 Albumin 3.9 - 4.9 g/dL 3.5 (L) Bilirubin, Total 0.2 - 1.3 mg/dL 0.4 Alkaline Phosphatase 38 - 113 U/L 209 (H) ALT 10 - 54 U/L 43 AST 14 - 40 U/L 27 Anion Gap 8 - 15 mmol/L 12 eGFR >=60 mL/min/1.73m 97 Free T4 0.9 - 1.7 ng/dL 1.1 TSH 0.270 - 4.200 mIU/L 1.670 WBC 3.70 - 11.00 k/uL 6.61 RBC 4.20 - 6.00 m/uL 4.21 Hemoglobin 13.0 - 17.0 g/dL 13.1 Hematocrit 39.0 - 51.0 % 41.2 Platelet Count 150 - 400 k/uL 208 MCV 80.0 - 100.0 fL 97.9 MCH 26.0 - 34.0 pg 31.1 MCHC 30.5 - 36.0 g/dL 31.8 MPV 9.0 - 12.7 fL 11.1 RDW-CV 11.5 - 15.0 % 13.1 DTYPE Manual Neut% % 82.0 Abs Neut (ANC) 1.45 - 7.50 k/uL 5.42 Lymph% % 6.0 Abs Lymph 1.00 - 4.00 k/uL 0.40 (L) Gaston% % 7.0 Abs Gaston <0.87 k/uL 0.46 Eosin% % 2.0 Abs Eosin <0.46 k/uL 0.13 Baso% % 0.0 Abs Baso <0.11 k/uL 0.00 Clements% % 2.0 Myelo% % 1.0 NRBC /100 WBC 0.0 Absolute nRBC <0.01 k/uL <0.01 Red Cell Morph Reviewed: see results of individual morphologies Platelet Estimate Adequate Anisocytosis Present Polychromasia Slight Left Shift Present (H): Data is abnormally high (L): Data is abnormally low Latest Reference Range & Units 08/09/24 11:21 Sodium 136 - 144 mmol/L 139 Potassium 3.7 - 5.1 mmol/L 4.0 Chloride 98 - 107 mmol/L 98 CO2 22 - 30 mmol/L 31 (H) BUN 9 - 24 mg/dL 20 Creatinine 0.73 - 1.22 mg/dL 0.78 Glucose 74 - 99 mg/dL 101 (H) Protein, Total 6.3 - 8.0 g/dL 6.4 Calcium 8.5 - 10.2 mg/dL 9.2 Albumin 3.9 - 4.9 g/dL 3.3 (L) Bilirubin, Total 0.2 - 1.3 mg/dL 0.7 Alkaline Phosphatase 38 - 113 U/L 150 (H) ALT 10 - 54 U/L 18 AST 14 - 40 U/L 21 Anion Gap 8 - 15 mmol/L 10 eGFR >=60 mL/min/1.73m 94 (H): Data is abnormally high (L): Data is abnormally low RADIOLOGY: CT CHEST WITHOUT CONTRAST -Exam End: 07/04/24 11:09 AM FINDINGS: LUNGS: Mild emphysematous changes. Bronchiectasis within right lower lobe. Multiple irregular patchy and slightly spiculated opacities within left lower lobe. Mild groundglass patchy opacities within right lower lobe. PLEURA: No mass, effusion, or pneumothorax. VASCULATURE: No abnormality. MEGA: No mass or adenopathy. MEDIASTINUM: Air-filled well distended esophagus throughout its length, but no appreciable fluid, wall thickening, or mass. No mediastinal mass or adenopathy. CARDIAC: No enlargement or pericardial thickening.. Coronary artery calcifications: AORTA: No aneurysm or dissection. CHEST WALL: No mass or axillary adenopathy. BONES: No bone lesion or fracture. LIMITED ABDOMEN: PEG tube within the stomach without appreciable abnormality. Suspect aneurysmal dilation of the distal abdominal aorta below the level of imaging. Limited images of the upper abdomen. OTHER: Negative. IMPRESSION: 1. Multifocal infiltrates bilaterally suggestive of pneumonia. Findings within left lung could represent neoplasm, however, there is been notable change since 04/01/2024 with some previously seen lesions no longer present, and multiple new lesions suggesting this represents changing pattern of pneumonia. Consider follow-up CT chest in 2 months to document clearing. 2. Chronic mild emphysematous changes and bronchiectasis. CT ABDOMEN PELVIS W IV CONTRAST; 05/22/2024 3:28 pm FINDINGS: LOWER CHEST: Mild bronchiectasis in the right lower lobe, likely represent sequela of prior infectious/inflammatory process. No consolidation or pleural effusion is present. Heart is normal in size. No pericardial effusion is present. Distal esophagus is unremarkable in appearance. ABDOMEN/PELVIS: ABDOMINAL WALL: Percutaneous gastrostomy tube traverses the anterior abdominal wall, and terminates within the lumen of the stomach. There is slightly increased in size and attenuation of the left rectus abdominis muscle the gastrostomy tube traverses through, compared to prior imaging on 11/07/2023. New trace nonspecific fluid surrounding the catheter present (series 5, image 7). No soft tissue gas or other discrete rim enhancing fluid collections are identified in the cutaneous tissues. Small fat containing left inguinal hernia is present. LIVER: No acute hepatic parenchymal abnormality is present. Portal vein is unremarkable in appearance. BILE DUCTS: No significant intrahepatic or extrahepatic dilatation. GALLBLADDER: Gallbladder is somewhat distended with fluid without evidence of wall thickening or pericholecystic stranding. PANCREAS: No pancreatic ductal dilatation or peripancreatic stranding is present. SPLEEN: No acute splenic abnormalities are present. ADRENALS: Bilateral adrenal glands are unremarkable in appearance. KIDNEYS, URETERS, BLADDER: Kidneys are symmetric in size and enhancement without evidence of hydronephrosis or new radiopaque nephrolithiasis. Numerous hypodense lesions are present bilaterally, likely representing cysts, largest measuring up to 3.2 cm in size in the lower pole of the left kidney. Visualized ureters are unremarkable in appearance. There is mild bladder wall thickening, which may be due to incomplete distention. REPRODUCTIVE ORGANS: Prostate is enlarged. VESSELS: Atherosclerotic plaques are present in the abdominal aorta and iliac arteries without evidence of acute vascular abnormality. There is a infrarenal aneurysm in the abdominal aorta, measuring up to 3.1 cm in size, similar in appearance to prior study. RETROPERITONEUM/LYMPH NODES: No acute retroperitoneal abnormality. No enlarged lymph nodes. BOWEL/MESENTERY/PERITONEUM: No wall thickening is present in the stomach. No abnormal small bowel dilatation is present. No inflammatory large bowel wall thickening is present. Scattered diverticula are present throughout the descending and sigmoid colon without evidence of acute diverticulitis. Appendix is unremarkable in appearance. No free air, free fluid, or thick-walled collections are identified in the abdomen or pelvis. MUSCULOSKELETAL: No acute osseous abnormality. No suspicious osseous lesion. Impression 1. Gastrostomy tube traverses the left anterior abdominal wall, and terminates within the stomach lumen, with trace new nonspecific fluid surrounding the catheter within the left rectus abdominis muscle. No additional rim enhancing fluid collections are identified within the cutaneous tissues. There is no soft tissue gas. The left rectus abdominis muscle that the gastrostomy tube traverses to demonstrates some new mild thickening and increased enhancement compared to prior exam on 11/07/2023, likely reactive changes. Additionally, the gastrostomy tube balloon appears somewhat decreased in size compared to prior imaging in October of 2023, now measuring up to 2 cm in axial dimension compared to 2.5 cm on previous imaging. 2. Thickened bladder may be due to underdistention or chronic outlet obstruction from enlarged prostate, although cystitis may have similar imaging appearance. Correlate with urinalysis. 3. Scattered diverticula are present throughout the descending and sigmoid colon without evidence of acute diverticulitis. 4. Infrarenal abdominal aortic aneurysms, measuring up to 3.1 cm in size, similar in appearance to prior exam. CHEST CT WITH CONTRAST -DATE OF EXAM: Jan 22 2024 2:41PM RESULT: Limitations: None. Lines, tubes, and devices: None. Lung parenchyma , airways, and pleural space: A small amount of retained secretions within the trachea and right mainstem bronchus are noted. Persistent diffuse bronchial wall thickening and mucous plugging is again appreciated, most prominent within the right lower lobe. Bilateral areas of tree-in-bud opacities, most prominent within the right middle and lower lobes, slightly improved. Several newly apparent patchy groundglass opacities are appreciated, for example within the left lower lobe, image [id number], within the posterior right upper lobe, image 63, series 4. The previously identified partially consolidative opacity at the lateral aspect of the superior segment of the right lower lobe has resolved, however, a newly apparent similar in appearance opacity is appreciated more medially within the superior segment of the right lower lobe, image 96, series 4. Lower neck, lymph nodes, and mediastinum: The visualized thyroid gland is stable. No substantial supraclavicular or axillary lymphadenopathy is identified. Mild subcarinal adenopathy has improved, now measuring approximately 1.9 x 1.0 cm, previously 2.1 x 1.3 cm. Just inferior to this, a 1.0 cm in short axis paraesophageal lymph node has decreased in size. No substantial mediastinal or hilar adenopathy is identified elsewhere. Heart, pericardium, and thoracic vessels: The thoracic aorta is normal in caliber. No substantial pericardial effusion. Bones/Soft Tissues: Degenerative change within the thoracic spine. No osseous destructive process. Upper Abdomen: A CT examination of the abdomen has been performed concurrently and will be dictated separately. IMPRESSION: 1. Improved appearance to bilateral areas of tree-in-bud opacities, most prominent within the right middle and lower lobes. 2. Several newly apparent bilateral areas of groundglass/consolidative opacities are identified, as detailed above, likely infectious/inflammatory in nature. Correlation with continued follow-up examinations is recommended. 3. Improved appearance to mildly prominent mediastinal lymph nodes, as above. CT ABDOMEN AND PELVIS WITH IV CONTRAST-DATE OF EXAM: Jan 22 2024 2:41PM RESULT: Liver: No mass. Biliary Tract: No bile duct dilation. The gallbladder appears unremarkable. Spleen: No splenomegaly. No mass. Pancreas: No mass or ductal dilation. Adrenal glands: No mass. Right kidney: Numerous renal cysts are again appreciated. An indeterminate, 1.3 cm partially exophytic lesion at the posterior aspect of the interpolar region has slightly progressed in size, previously 0.9 cm, image 62, series 3. Left kidney: Numerous renal cysts are again noted. 1.0 cm indeterminate density lesion at the upper pole is stable in size, image 47, series 3. A 6 mm indeterminate exophytic lower pole lesion is stable, image 63, series 3. GI Tract: No bowel wall thickening or dilation. Percutaneous gastric tube is noted in place. Lymph nodes: No substantial mesenteric or retroperitoneal adenopathy. Mesentery/Peritoneum: No ascites or mass. Retroperitoneum: No mass. Vasculature: - Abdominal aorta and iliac arteries: Atherosclerotic calcifications. 3.3 cm infrarenal abdominal aortic aneurysm, previously 3.2 cm. - Celiac and SMA: Patent. - Portal venous system (SMV, splenic vein, portal vein and branches): Patent. - Hepatic veins: Patent. Pelvis: No free fluid or pelvic mass. Prostate gland is moderately enlarged, unchanged. Bones/Soft Tissues: Degenerative change within the lumbar spine. No osseous destructive process. Lower Thorax: A CT examination of the chest has been performed concurrently and will be dictated separately. Client Engagement Specialist (topogram) images: No additional findings. IMPRESSION: 1. No evidence for metastatic disease to the abdomen or pelvis. 2. An indeterminate 1.3 cm right renal lesion has slightly progressed in size. Further workup with dedicated CT kidney examination is recommended. Additional indeterminate left renal lesions appear stable. 3. 3.3 cm infrarenal abdominal aortic aneurysm, minimally progressed in size. ASSESSMENT / PLAN: 1. 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 He is due to see Dr. Holder. 2. Weight loss. Patient is status post PEG. Patient is been evaluated by nutrition. He is receiving additional supplementation. He is having more trouble aspiration. 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 He is s/p peg. He has had a new tube placed in 05/2024. No clear evidence of malignancy. Patient return to see me in 6 months. 3. Increasing nodular densities right lower lobe. He is due to see Dr. Bojorquez in followup. He is due for a repeat CT in 08/2024. They are requesting an appointment with [facility]. 4. Pleural-based density. 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 6. Right Kidney.had MRI dated March 12, 2023. This showed multiple bilateral renal cysts. Predominant Bosniak 1 and Bosniak 2. Since most recent CT scan shows abnormality involving the right kidney. 7. Hypernatremia. Improved with increasing free water. Some Elements Copied from my note previous note,January 26, 2024 I have updated where appropriate, and all reflect current medical decision making from today, August 09, 2024 Sushma Brandon MD documented in this encounter [facility] 08-09-2024 Note HNO ID: [id number] Author: SUSHMA BRANDON, ? Service: ? Author Type: Physician Type: Progress Notes Filed: 08/09/2024 12:06 Note Text: HISTORY OF PRESENT ILLNESS: Mr. 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 Patient that time was treated with chemoradiation therapy. He completed radiation therapy in February 2009. He was treated on the care Dr. Lennon. He was last seen by him on September 2017. CURRENT STATUS: Since his last visit, he was admitted in 06/2024 for bilateral pneumonia and he was readmitted in 07/2024 for elevated troponin. He was admitted in 07/30/2024 and he had fever and cough. He was found to be hypotensive and with an elevated troponin. He was admitted and d/c home. He was told to restrict his fluids. He was was found to have a high sodium. His fluids were liberalized. He now returns ECOG PERFORMANCE STATUS: 0- Fully active, able to carry on all pre-disease performance w/o restriction. Social History Tobacco Use Smoking status: Former Current packs/day: 0.00 Average packs/day: 2.0 packs/day for 46.0 years (92.0 ttl pk-yrs) Types: Cigarettes Start date: 09/19/1962 Quit date: 09/19/2008 Years since quittin.8 Smokeless tobacco: Never Tobacco comments: Quit Vaping Use Vaping status: Never Used Substance Use Topics Alcohol use: No Drug use: No FAMILY HISTORY Problem Relation Age of Onset Cataract Mother other (Dementia) Mother Coronary Artery Disease Father Heart Father Cataract Father Glaucoma Father Detached Retina No Family History Macular Degen No Family History Blindness No Family History Amblyopia No Family History Strabismus No Family History PAST MEDICAL HISTORY Diagnosis Date Epiretinal membrane (ERM) of left eye Erythrocytosis 09/15/2014 Hyperlipemia 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 CONSTITUTIONAL: Awake, alert, oriented. HEAD (Incl. face): Normocephalic; Atraumatic. EYES: Pupils are reactive. No scleral icterus. HEENT: No oral exudates. NECK: No thyromegaly. No JVD. Evidence of neck surgery. HEMATOLOGY/LYMPHATIC: No petechiae or purpura. No tender or palpable lymph nodes in the cervical, supraclavicular, axillary or inguinal areas. RESPIRATORY: Lungs are clear to auscultation. CARDIOVASCULAR: Regular rate and rhythm. 2 + radial pulse. ABDOMEN: Non-tender, soft, positive bowel sounds. BACK/SPINE: No kyphosis or scoliosis. Non tender to palpation. MUSCULOSKELETAL: No tenderness or swelling, normal range of motion without obvious weakness. EXTREMITIES: No cyanosis, clubbing INTEGUMENTARY: No rashes or masses. NEURO: No sensory or motor deficits, normal cerebellar function, normal gait, cranial nerves intact. PSYCHIATRIC: Pleasant affect. No signs of agitation. LABS: Latest Reference Range AND Units 08/05/24 10:24 Sodium 136 - 144 mmol/L 150 (H) Potassium 3.7 - 5.1 mmol/L 4.3 Chloride 98 - 107 mmol/L 110 (H) CO2 22 - 30 mmol/L 28 BUN 9 - 24 mg/dL 38 (H) Creatinine 0.73 - 1.22 mg/dL 0.70 (L) Glucose 74 - 99 mg/dL 128 (H) Protein, Total 6.3 - 8.0 g/dL 6.9 Calcium 8.5 - 10.2 mg/dL 10.1 Albumin 3.9 - 4.9 g/dL 3.5 (L) Bilirubin, Total 0.2 - 1.3 mg/dL 0.4 Alkaline Phosphatase 38 - 113 U/L 209 (H) ALT 10 - 54 U/L 43 AST 14 - 40 U/L 27 Anion Gap 8 - 15 mmol/L 12 eGFR >=60 mL/min/1.73m? 97 Free T4 0.9 - 1.7 ng/dL 1.1 TSH 0.270 - 4.200 mIU/L 1.670 WBC 3.70 - 11.00 k/uL 6.61 RBC 4.20 - 6.00 m/uL 4.21 Hemoglobin 13.0 - 17.0 g/dL 13.1 Hematocrit 39.0 - 51.0 % 41.2 Platelet Count 150 - 400 k/uL 208 MCV 80.0 - 100.0 fL 97.9 MCH 26.0 - 34.0 pg 31.1 MCHC 30.5 - 36.0 g/dL 31.8 MPV 9.0 - 12.7 fL 11.1 RDW-CV 11.5 - 15.0 % 13.1 DTYPE Manual Neut% % 82.0 Abs Neut (ANC) 1.45 - 7.50 k/uL 5.42 Lymph% % 6.0 Abs Lymph 1.00 - 4.00 k/uL 0.40 (L) Gaston% % 7.0 Abs Gaston <0.87 k/uL 0.46 Eosin% % 2.0 Abs Eosin <0.46 k/uL 0.13 Baso% % 0.0 Abs Baso <0.11 k/uL 0.00 Clements% % 2.0 Myelo% % 1.0 NRBC /100 WBC 0.0 Absolute nRBC <0.01 k/uL <0.01 Red Cell Morph Reviewed: see results of individual morphologies Platelet Estimate Adequate Anisocytosis Present Polychromasia Slight Left Shift Present (H): Data is abnormally high (L): Data is abnormally low Latest Reference Range AND Units 08/09/24 11:21 Sodium 136 - 144 mmol/L 139 Potassium 3.7 - 5.1 mmol/L 4.0 Chloride 98 - 107 mmol/L 98 CO2 22 - 30 mmol/L 31 (H) BUN 9 - 24 mg/dL 20 Creatinine 0.73 - 1.22 mg/dL 0.78 Glucose 74 - 99 mg/dL 101 (H) Protein, Total 6.3 - 8.0 g/dL 6.4 Calcium 8.5 - 10.2 mg/dL 9.2 Albu (more content not included)... [facility] 08-06-2024 Note HNO ID: [id number] Author: ZOYA HILLMAN RD Service: ? Author Type: Registered Dietitian Type: Progress Notes Filed: 08/12/2024 16:30 Note Text: [facility] Nutrition Therapy: Progress note I have communicated my name and active licensure. The patient?s identity and physical location were verified at the time of this visit. Either the patient or their legal technical services representative has been informed of the risks and benefits of -- and alternatives to -- treatment through a remote evaluation and consents to proceed with the evaluation remotely. Pt is meeting calorie goals but not fluid needs: 3 Boost VHC 2 Complete Nocturnal tube feeding via - 12 hours at 94ml/hr 750 ml free water via tubeeach day with medicine Pt's states that someone from the hospital recommended a fluid restriction fo 750ml. There are no notes indicating fluid restriction was ordered and Discharge diet is resume pre-hospital diet as tolerated Recommend increasing water flushes to 3 bottles (16.oz) or 1500ml per day. Will review labs again next week. Anthropometrics: Height: Last Ht 07/23/23 : 188 cm (6' 2.02) Current weight: Last Wt 01/26/24 : 78.8 kg (173 lb 11.6 oz) There is no height or weight on file to calculate BMI. RMR can't be calculated - Weight unrecorded in last 120 days. MNT Billing Type: Re-assess 1 unit SIGNATURE: Zoya Hillman RD PATIENT NAME: Amy Sun DATE: August 06, 2024 TIME: 1:39 PM PAGER: [facility] 08-06-2024 History of Present illness Narrative [facility] Nutrition Therapy: Progress note I have communicated my name and active licensure. The patient s identity and physical location were verified at the time of this visit. Either the patient or their legal technical services representative has been informed of the risks and benefits of -- and alternatives to -- treatment through a remote evaluation and consents to proceed with the evaluation remotely. Pt is meeting calorie goals but not fluid needs: 3 Boost VHC 2 Complete Nocturnal tube feeding via - 12 hours at 94ml/hr 750 ml free water via tubeeach day with medicine Pt's states that someone from the hospital recommended a fluid restriction fo 750ml. There are no notes indicating fluid restriction was ordered and Discharge diet is resume pre-hospital diet as tolerated Recommend increasing water flushes to 3 bottles (16.oz) or 1500ml per day. Will review labs again next week. Anthropometrics: Height: Last Ht 07/23/23 : 188 cm (6' 2.02) Current weight: Last Wt 01/26/24 : 78.8 kg (173 lb 11.6 oz) There is no height or weight on file to calculate BMI. RMR can't be calculated - Weight unrecorded in last 120 days. MNT Billing Type: Re-assess 1 unit SIGNATURE: Zoya Hillman RD PATIENT NAME: Amy Nunes Dino DATE: August 06, 2024 TIME: 1:39 PM PAGER: documented in this encounter [facility] 08-06-2024 Note Education (SARAHI) ---- DINOAMY Chuyita ([id number]) 1950 M Date Time Provider Department 08/06/24 12:30 PM ZOYA HILLMAN Reason for Visit: Nutrition Telephone [2014] Primary Visit Diagnosis:Severe protein-calorie malnutrition (HCC) [E43] Other Visit Diagnosis: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) [C01] During your visit today, we recorded the following information about you: Allergies As of Date: 08/06/2024 (No Known Allergies) Date Reviewed: 06/18/2024 Reviewed by: Zoya Hillman RD - Fully Assessed Prescriptions as of 08/12/2024 - apixaban (ELIQUIS) 5 mg tab(s) Take 5 mg by mouth two times a day. - formoterol fumarate (PERFOROMIST) 20 mcg/2 mL nebu Inhale 20 mcg as instructed. - revefenacin (YUPELRI) 175 mcg/3 mL solution for nebulization Inhale 175 mcg as instructed once daily. - tamsulosin (FLOMAX) 0.4 mg Take 0.4 mg by mouth once daily. - famotidine (PEPCID) 20 mg tablet Take 20 mg by mouth. - budesonide (PULMICORT) 0.5 mg/2 mL nebulizer solution Inhale 0.5 mg as instructed. - nut tx, lact-reduced, iron (BOOST VHC) 0.09-2.25 gram-kcal/mL liqd 52 mL by FEEDING TUBE route continuous. [place]minster with infinity feeding pump. Flush with an additional 33oz of water daily (divided). - iv contrast (will be provided with radiology test) CT Chest W -Inject, intravenously, once for 1 dose.No IV access, insert saline lock prior to the beginning of sedation, infusion, injection of imaging exam. Discontinue saline lock post exam. If Pt. has a central line or IVAD, may access for administration according to line specific nursing protocol. Once exam is complete flush line and de-access according to line specific nursing protocol in the CT contrast administration guidelines link. - iv contrast (will be provided with radiology test) CT ABD/PEL -Inject, intravenously, once for 1 dose.No IV access, insert saline lock prior to the beginning of sedation, infusion, injection of imaging exam. Discontinue saline lock post exam. If Pt. has a central line or IVAD, may access for administration according to line specific nursing protocol. Once exam is complete flush line and de-access according to line specific nursing protocol in the CT contrast administration guidelines link. - enteric contrast (will be provided with radiology test) For CT ABD/PEL W IVCON Routine order Administer, As Directed One Time Only, via Oral, Rectal, both Oral and Rectal, Enteric Tube, Stoma or Indwelling Catheter, Enteric Contrast as designated per enteric contrast guidelines - nutritional supplement-fiber (COMPLEAT 1.5) 0.07 gram-1.5 kcal/mL liqd 80ml/hr of Compleat 1.5 continuously for 24 hours. Use 1 carton of Benecalorie daily. Flush with 200ml water four times per day. - sertraline (ZOLOFT) 25 mg tablet Take 1 tablet by mouth once daily. - furosemide (LASIX) 20 mg tablet Take 20 mg by mouth once daily. - sulindac (CLINORIL) 150 mg tablet - pilocarpine (ISOPTO CARPINE) 2 % ophthalmic solution 1 Drop. - rosuvastatin (CRESTOR) 5 mg tablet Take 5 mg by mouth once daily. - pantoprazole DR (PROTONIX) 40 mg tablet - propylene glycol/peg 400 (BLINK TEARS LUBRICATING) Eye Drops Use 1 Drop in both eyes as needed. - traMADol (ULTRAM) 50 mg tablet Take 1 tablet by mouth twice daily. - testosterone (ANDROGEL) 50 mg/5 g (1%) gel Apply 0.5 Tubes as directed once daily. Encounter Status:Closed by ZOYA HILLMAN on 08/12/24 [facility] 07-31-2024 Hospital Discharge instructions Omer Segovia RN - 07/31/2024 2:27 PM EDT Continue pre hospital activity. The following attachments cannot be sent through Care Everywhere.Feeding Tube: General Info (C[place] Verdean)documented in this encounter [facility] 07-31-2024 Plan of care note Problem: Adult Inpatient Plan of Care Goal: Plan of Care Review Outcome: Adequate for Discharge Goal: Patient-Specific Goal (Individualized) Outcome: Adequate for Discharge Goal: Absence of Hospital-Acquired Illness or Injury Outcome: Adequate for Discharge Goal: Optimal Comfort and Wellbeing Outcome: Adequate for Discharge Goal: Readiness for Transition of Care Outcome: Adequate for Discharge Problem: Skin Injury Risk Increased Goal: Skin Health and Integrity Outcome: Adequate for Discharge Problem: Pain Acute Goal: Optimal Pain Control and Function Outcome: Adequate for Discharge [facility] 07-31-2024 Miscellaneous Notes Problem: Adult Inpatient Plan of Care Goal: Plan of Care Review Outcome: Adequate for Discharge Goal: Patient-Specific Goal (Individualized) Outcome: Adequate for Discharge Goal: Absence of Hospital-Acquired Illness or Injury Outcome: Adequate for Discharge Goal: Optimal Comfort and Wellbeing Outcome: Adequate for Discharge Goal: Readiness for Transition of Care Outcome: Adequate for Discharge Problem: Skin Injury Risk Increased Goal: Skin Health and Integrity Outcome: Adequate for Discharge Problem: Pain Acute Goal: Optimal Pain Control and Function Outcome: Adequate for Discharge Patient noted to have tachycardia 130's-140's with temp of 100.1 and O2 saturation of 79% on 3L. Patient had x2 episodes of emesis. This RN increased his O2 to 6L NC and stopped patient's tube feeding. No residual noted, patient's abdomen soft to touch. PRN tylenol administered. Patient's HR then decreased to 104 on O2 94% on 6L. This RN called Dr. George and informed him of the situation. Orders received for chest x-ray and Doxycycline 100mg IV q 12 hours- see MAR order for complete order. Per Tory Emery, okay to use patient's home tube feed and pump. Tube feed currently connected to patient and running at 94mL/hr for 12 hours which is patient's home rate/tube feed. OT consult recevied and chart reviewed. Pt presents with elevated troponin. OT discussed pt's level of independence with ADLs and mobility with pt reporting he does not require skilled services. OT to sign off. PT consult received and chart reviewed. Pt was admitted due to elevated troponin. Per conversation with OT pt reported that he remains independent and does not want PT/OT services at this time. Will sign off per request. Problem: Adult Inpatient Plan of Care Goal: Plan of Care Review Outcome: Progressing Goal: Patient-Specific Goal (Individualized) Outcome: Progressing Goal: Absence of Hospital-Acquired Illness or Injury Outcome: Progressing Goal: Optimal Comfort and Wellbeing Outcome: Progressing Goal: Readiness for Transition of Care Outcome: Progressing Problem: Skin Injury Risk Increased Goal: Skin Health and Integrity Outcome: Progressing Problem: Pain Acute Goal: Optimal Pain Control and Function Outcome: Progressing Associated Problem(s): HLD (hyperlipidemia) Resume home medication as ordered Follow up after discharged with PCP Lipid panel ordered Associated Problem(s): Essential hypertension Resume home medication as ordered Follow up after discharged with PCP Labetalol PRN for SBP> 160 Monitor VS Associated Problem(s): GERD (gastroesophageal reflux disease) Protonix ordered for hospital stay Resume home treatment at discharge Associated Problem(s): Nausea & vomiting PRN medication for nausea ordered Associated Problem(s): Dysphagia Patient NPO with home PEG tube feedings Associated Problem(s): Elevated troponin Patient asymptomatic Troponin@ 120 or arrival, trending down now Chest XR and ECG non-acute Echocardiogram ordered Nitroglycerin PRN for chest pain DVT/GI prophylaxis Currently on 2 liters NC, baseline Oxygen and incentive spirometry Social work consulted for discharge planning Monitor telemetry, labs and VS documented in this encounter [facility] 07-31-2024 Hospital course Narrative Discharge Summary Name: Amy Sun Age: 74 y.o. Birthday: 1950 Admit Date: 07/30/2024 7:44 AM Discharge Date: 07/31/2024 Discharge Diagnoses: Principal Problem: Elevated troponin Active Problems: Essential hypertension Dysphagia Leukocytosis GERD (gastroesophageal reflux disease) HLD (hyperlipidemia) Nausea & vomiting Lactate blood increase Brief Summary of Hospital Course: Mr. Amy Sun is a 74 year old male with a past medical history including hypertension, hyperlipidemia, COPD with emphysema, chronic respiratory failure with home O2@ 2 liters, DDD, anxiety/depression, aspiration pneumonia, dysphagia, history of PE, BPH, tongue cancer S/P PEG tube placement, GERD, insomnia, obesity and former tobacco abuse who presented to ER for evaluation of cough and fever. ER work up involved labs that showed lactate@ 28. CO2@ 34. Troponin@ 120. White count@ 13.6. Chest XR and ECG non-acute, patient afebrile on arrival, HR@ 82, RR@ 20, BP@ 89/68 and oxygenation WNL on his baseline. Due to cardiac risk factors and complaints, patient was admitted to floor for ACS rule out. While hospitalized patients labs and VS were monitored and additional testing was ordered and reviewed. Patient did remain stable this admission and has had no complaints of chest pain. ACS was ruled out. He and his spouse did meet with social work coordinator and deny all needs post discharge. He is afebrile on his baseline oxygen and without a white count. He states doing well and readiness to go home. He will be discharged today in stable condition with instructions to resume medications as listed below and follow up with his PCP in 1 week. Prescriptions have been sent to patients pharmacy of record. Consultants: none Discharge Vital Signs: Blood pressure 106/62, pulse 81, temperature 97.9 F (36.6 C), temperature source Oral, resp. rate 18, height 1.829 m (6'), weight 82.2 kg (181 lb 3.5 oz), SpO2 92%. O2 Sat (%): 92 % (07/31 1133) O2 Device: nasal cannula (07/31 113) Flow (L/min): 2 (07/31 113) Discharge Diagnostics: Chest XR 07/31/2024 IMPRESSION: Small amount of opacities throughout the right mid and bilateral lower lungs, correlate clinically. Remainder of the chest is unremarkable. Echocardiogram 07/30/2024 Conclusion Hyperdynamic echocardiogram, EF>80% normal wall motion normal RV function ECG 07/30/2024 Sinus rhythm with premature atrial complexes Nonspecific T wave abnormality Abnormal ECG When compared with ECG of 04-JUL-2024 11:18, Significant changes have occurred PHYSICAL EXAM HEENT: Normalcephalic, atraumatic. Pupils equal, round, reactive, to light and accomodation B/L. Bilateral nares patent without obvious drainage. Oral mucosa moist, pink, intact without ulcers or lesions. Neck: No JVD, no thyromegaly, no anterior or posterior lymphadenopathy. Cardiovascular: Regular rate and rhythm, without murmurs, rubs, or gallops. Respiratory: Bilateral Upper and Lower Lobes anterior and posteriorly without wheezes, rales, or rhonchi. Diminished BLL. Abdomen: Soft, rounded, non-tender. Bowel sounds present x4 quadrants. No rebound. No organomegaly or masses noted upon deep palpation. Extremities: No edema, clubbing or cyanosis, pulses palpable 2+ distally. Discharge Labs: Lab Results Component Value Date WBC 6.9 07/31/2024 HGB 14.4 07/31/2024 HCT 41.6 (L) 07/31/2024 PLATELET 133 07/31/2024 MCV 94.1 07/31/2024 Lab Results Component Value Date SODIUM 145 07/31/2024 POTASSIUM 4.0 07/31/2024 CHLORIDE 103 07/31/2024 CO2 33 (H) 07/31/2024 BUN 30 (H) 07/31/2024 CREATSERUM 0.66 (L) 07/31/2024 GLUCOSE 162 (H) 07/31/2024 Lab Results Component Value Date ALT 35 07/30/2024 AST 46 07/30/2024 ALKPHOS 108 07/30/2024 BILITOTAL 1.1 07/30/2024 BILIDIRECT 0.0 07/30/2024 Discharge Medications: Medication List START taking these medications aspirin 81 MG CHEW chewable tablet Chew 1 tablet daily. Start taking on: August 01, 2024 Fluticasone-Salmeterol 230-21 MCG/ACT AERO inhaler Commonly known as: ADVAIR HFA Inhale 1 puff every 12 hours. tiotropium 18 MCG inhalation capsule Commonly known as: SPIRIVA Inhale 1 capsule daily. Start taking on: August 01, 2024 CONTINUE taking these medications Acetaminophen 325 MG tablet Commonly known as: TYLENOL apixaban 5 MG TABS Commonly known as: ELIQUIS Take 1 tablet by mouth every 12 hours. Boost [facility] LIQD culturelle CAPS capsule Doxazosin 4 MG TABS Commonly known as: CARDURA faMOTIdine 20 MG TABS Commonly known as: PEPCID FIBER PO Finasteride 5 MG TABS Commonly known as: PROSCAR fluticasone 50 MCG/ACT SUSP nasal spray Commonly known as: FLONASE Metoclopramide 5 MG TABS Commonly known as: REGLAN Nebulizer MISC 1 Device by Unknown route every 4 hours as needed. Pantoprazole [address] tablet DR Commonly known as: Protonix Take 1 tablet by mouth daily. roflumilast 500 MCG TABS Commonly known as: Daliresp Take 1 tablet by mouth daily. Sertraline 25 MG TABS Commonly known as: Zoloft Take 1 tablet by mouth daily. SUMAtriptan 50 MG TABS Commonly known as: IMITREX STOP taking these medications budesonide 0.5 MG/2ML nebulizer suspension Commonly known as: PULMICORT formoterol 20 MCG/2ML NEBU nebulizer solution Commonly known as: Perforomist Ipratropium-albuterol 0.5-2.5 (3) MG/3ML nebulizer solution Commonly known as: DUONEB ondansetron 4 MG/5ML solution Commonly known as: ZOFRAN predniSONE 10 MG TABS Commonly known as: DELTASONE Testosterone 25 MG/2.5GM (1%) GEL gel traMADol 50 MG TABS Commonly known as: Ultram Yupelri 175 MCG/3ML SOLN Generic drug: Revefenacin ASK your doctor about these medications Albuterol (2.5 MG/3ML) 0.083% inhalation solution Commonly known as: PROVENTIL Take 3 mL by nebulization every 6 hours as needed for Shortness of Breath. SPACER FOR INHALER PRESCRIPTION Use with inhaler as directed Where to Get Your Medications These medications were sent to [id number] [place] [address] - [address] [facility] [address] [facility] [facility] [id number] aspirin 81 MG CHEW chewable tablet Fluticasone-Salmeterol 230-21 MCG/ACT AERO inhaler tiotropium 18 MCG inhalation capsule Discharge Activity: Resume pre-hospital activities as tolerated. Discharge Diet: Resume pre-hospital diet as tolerated. Discharge Follow-up: Ulices Clark DO [address] [facility] [id number] Schedule an appointment as soon as possible for a visit in 1 week(s) Follow up hospital visit, elevated troponin Discharge Disposition: Patient will be discharged in stable condition. Discharge Time: Including assessment, planning, and medication reconciliation was greater than 10 min. Tory Emery CNP completing Discharge Summary for Dr. Burton George Please note Portions of this note utilized Hyperpotation software, please excuse any typographical or grammatical errors Cosigned by Burton George MD at 07/31/2024 5:34 PM EDT Associated attestation - Burton George MD - 07/31/2024 5:34 PM EDT Patient seen and examined independently on date of exam on 07/31/2024 with PROJECT FACILITATOR & at bedside. Early this a.m. nursing staff report patient had episode of apparent aspiration of tube feeds. CXR was obtained and small bilateral lower lobe opacities. When compared to previous CXR, no significant change. Patient was not febrile. Nursing staff reports patient was hypoxic and placed on O2. It should be noted that patient is on home oxygen. No other events occurred. This a.m. patient is alert and has no complaints. His is at bedside. She had multiple questions which were all answered at the bedside. On exam, patient is alert. His speech is dysarthric but at baseline. reports patient clinically is at his baseline. He does not appear to be in any respiratory distress. Vital signs reviewed. Afebrile. Neck is supple. Bilateral breath sounds are present. Some scattered rhonchi. No wheezing. Air exchange is good. Heart exam is regular. Normal S1-S2. There is no S3. Abdomen is soft. Bowel sounds present. Nontender. Peg button in place. Abdomen nondistended. No rebound or guarding. There is no new gross focal neurologic deficit. Skin is warm. No peripheral cyanosis. No rashes. No new gross focal neurologic deficit. A&O x3. Labs reviewed. WBC 6,900 Echocardiogram revealed hyperdynamic wall motion. EF greater than 80%. Normal wall motion. Normal LV and RV wall motion. Patient is clinically stable and in no acute distress. I had a long conversation with the and patient at bedside. Given his previous history of tongue cancer and surgery, patient is known to be at risk for aspiration as well as recurrent aspiration. We had a long conversation in regards to tube feedings. Patient prefers nocturnal 12 hour feeding been slow continuous tube feeds. I did discuss benefits of extending the timeframe of his feeding at night to lower the amount hourly however reports the patient refuses. Patient still attempts to be as active as possible and does not like to be tied down with tube feeding. Patient and were educated on correct use of MDI with a spacer device, as he has not been using these. reports that she will make sure that patient uses spacer from this point forward. Patient and would like to return home. Patient did have some mild hypernatremia. We will provide additional free water and repeat his sodium later today. Electrolytes did improve, and we will discharge patient home later today Patient is clinically stable for DC home with . I have reviewed matthew aspects of the assessment and the plan of care with the PROJECT FACILITATOR and agree with documentation outlined in addition to my notations. 45 minutes DC time spent, inclusive of time documented by PROJECT FACILITATOR. Burton George MD 07/31/2024 This note was created with the assistance of [employer]. While intending to generate a document that actually reflects the content of the visit, the document can still have some errors including those of syntax and sound a like substitutions which may escape proof reading. In such instances, actual meaning can be extrapolated by contextual diversion. documented in this encounter [facility] 07-31-2024 History of Present illness Narrative Patient wears 2L nasal cannula at home documented in this encounter [facility] 07-31-2024 Nurse Note Patient noted to have tachycardia 130's-140's with temp of 100.1 and O2 saturation of 79% on 3L. Patient had x2 episodes of emesis. This RN increased his O2 to 6L NC and stopped patient's tube feeding. No residual noted, patient's abdomen soft to touch. PRN tylenol administered. Patient's HR then decreased to 104 on O2 94% on 6L. This RN called Dr. George and informed him of the situation. Orders received for chest x-ray and Doxycycline 100mg IV q 12 hours- see [facility] order for complete order. [facility] 07-30-2024 Nurse Note Per kendall Castillo to use patient's home tube feed and pump. Tube feed currently connected to patient and running at 94mL/hr for 12 hours which is patient's home rate/tube feed. T [facility] 07-30-2024 Progress note Formatting of t his note might be different from the original. OT consult recevied and chart reviewed. Pt presents with elevated troponin. OT discussed pt's level of independence with ADLs and mobility with pt reporting he does not require skilled services. OT to sign off. [facility] Work Phone: 07-30-2024 Progress note Formatting of t his note might be different from the original. PT consult received and chart reviewed. Pt was admitted due to elevated troponin. Per conversation with OT pt reported that he remains independent and does not want PT/OT services at this time. Will sign off per request. [facility] 06-13-2025 Plan of care note Problem: Adult Inpatient Plan of Care Goal: Plan of Care Review Outcome: Progressing Goal: Patient-Specific Goal (Individualized) Outcome: Progressing Goal: Absence of Hospital-Acquired Illness or Injury Outcome: Progressing Goal: Optimal Comfort and Wellbeing Outcome: Progressing Goal: Readiness for Transition of Care Outcome: Progressing Problem: Skin Injury Risk Increased Goal: Skin Health and Integrity Outcome: Progressing Problem: Pain Acute Goal: Optimal Pain Control and Function Outcome: Progressing [facility] 07-30-2024 History and physical note History and Physical Examination 07/30/24 3:33 PM Amy 1950 Chief Complaint: Chief Complaint Patient presents with Fever states patient feels hot. Cough states he hasn't been able to catch his breath and persistently coughing until vomiting. History of Present Illness: Mr. Amy Sun is a 74 year old male with a past medical history including hypertension, hyperlipidemia, COPD with emphysema, chronic respiratory failure with home O2@ 2 liters, DDD, anxiety/depression, aspiration pneumonia, dysphagia, history of PE, BPH, tongue cancer S/P PEG tube placement, GERD, insomnia, obesity and former tobacco abuse who presented to ER for evaluation of cough and fever. Patient is resting comfortably at this time so information for HPI retrieved from spouse and charting. According to spouse patient started having nausea with vomiting last night. She tells me this is the first time he has ever vomited up his tube feedings. He has a feeding tube due to concerns for aspiration secondary to his tongue cancer . He was complaining of some shortness a breath and coughing essentially he has complaining of dyspnea with some nausea and vomiting. Denied any chest pain at the time no diaphoresis. Patient denies any recent diarrhea. Denies feeling palpations, having ankle edema or urinary complaints. Patient sleeps in his man cave and climbs more than 10 steps to get upstairs without complaints and walks without complication. Spouse tells me he always sleeps with his mouth open. She does also inform me that he swishes soda and water in his mouth but does not swallow it to prevent dryness. ER work up involved labs that showed lactate@ 28. CO2@ 34. Troponin@ 120. White count@ 13.6. Chest XR and ECG non-acute, patient afebrile on arrival, HR@ 82, RR@ 20, BP@ 89/68 and oxygenation WNL on his baseline. Due to cardiac risk factors and complaints, patient was admitted to floor for ACS rule out. Today the patient denies headaches, blurred vision, lightheadedness, fever or chills. The patient denies back pain, diarrhea/constipation, dysuria, unusual arthralgias, myalgias, skin rashes or lesions. Call light within reach. Objective: Patient Active Problem List Diagnosis Date Noted Lactate blood increase 07/30/2024 Oral prerna 07/05/2024 Pneumonia of both lower lobes due to infectious organism 07/04/2024 Dependence on nocturnal oxygen therapy 07/04/2024 Hypernatremia 07/04/2024 History of pulmonary embolism 07/04/2024 Acute hypoxemic respiratory failure 06/07/2024 Pulmonary lesion, right 01/13/2024 Single subsegmental pulmonary embolism without acute cor pulmonale 12/31/2023 Chronic respiratory failure with hypoxia, on home oxygen therapy 12/31/2023 Pulmonary embolus, right 12/22/2023 Venous insufficiency 12/18/2023 Constipation 12/17/2023 Left inguinal hernia 12/17/2023 Difficulty sleeping 11/22/2023 Hyponatremia 11/22/2023 Postnasal drip 11/22/2023 AAA (abdominal aortic aneurysm) 11/19/2023 Chronic obstructive pulmonary disease 11/11/2023 Nausea & vomiting 10/31/2023 Pharyngoesophageal dysphagia 10/31/2023 Vomiting 10/23/2023 Anxiety and depression 09/25/2023 Migraine without aura and without status migrainosus, not intractable 09/25/2023 Hypertension 09/25/2023 Edema of both lower extremities 09/25/2023 Gastroesophageal reflux disease 09/25/2023 Cough with hemoptysis 06/15/2023 Mass of pleura 06/15/2023 Centrilobular emphysema 06/04/2023 PNA (pneumonia) 05/26/2023 Benign hypertension 05/25/2023 Aspiration pneumonia of both lungs 05/25/2023 Leukocytosis 05/25/2023 BPH (benign prostatic hyperplasia) 05/25/2023 COPD exacerbation 05/25/2023 GERD (gastroesophageal reflux disease) 05/25/2023 HLD (hyperlipidemia) 05/25/2023 Acute respiratory failure with hypoxia 05/24/2023 Multifocal pneumonia 05/09/2023 Other hypotension 05/09/2023 Elevated alkaline phosphatase level 05/09/2023 COPD (chronic obstructive pulmonary disease) with acute bronchitis 04/19/2023 Dysphagia 04/19/2023 Cough 04/19/2023 Squamous cell carcinoma of tongue 04/19/2023 Hyperglycemia 04/19/2023 Aspiration pneumonia 04/19/2023 S/P percutaneous endoscopic gastrostomy (PEG) tube placement 04/19/2023 COPD (chronic obstructive pulmonary disease) 04/19/2023 Aspiration into airway 04/19/2023 GERD (gastroesophageal reflux disease) 04/19/2023 Noncompliance 04/19/2023 Failure to thrive in adult 04/07/2023 Leukocytosis 03/03/2023 Cough 03/03/2023 Fever 03/03/2023 Dry heaves 03/03/2023 Elevated troponin 03/03/2023 Severe protein-calorie malnutrition 03/02/2023 Aspiration into airway 12/06/2022 Aspiration into lower respiratory tract 12/06/2022 Dysphagia 07/23/2022 Xerostomia due to radiotherapy 07/23/2022 Vitelliform lesion of macula 11/01/[address] nodules on CT 01/15/2019 Hyperopia of both eyes with astigmatism and presbyopia 06/02/2018 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 (central serous retinopathy), 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 Epiretinal membrane (ERM) of left eye 06/02/2017 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/02/2017 Benign prostatic hyperplasia with lower urinary tract symptoms 07/31/2016 Arthritis 07/31/2016 Impotence of organic origin Abnormal glucose Testicular hypofunction Fatigue Enthesopathy Gastroesophageal reflux disease without esophagitis Hyperlipidemia BPH without urinary obstruction Degenerative joint disease Bilateral leg edema Chronic kidney disease (CKD), stage I Obesity Tear film insufficiency 06/05/2016 Pseudophakia of both eyes 04/06/2015 Essential hypertension 03/14/2015 Astigmatism of left eye 03/14/2015 Vitreous floaters of both eyes 03/14/2015 Erythrocytosis 09/15/2014 Secondary polycythemia 09/15/2014 Hepatic steatosis Past Medical History: Diagnosis Date Abnormal glucose Bilateral leg edema BPH without urinary obstruction Chronic kidney disease (CKD), stage I Degenerative joint disease Enthesopathy Essential hypertension, benign Fatigue Former smoker 2 PPD x46 years, quite 09/19/2008 GERD (gastroesophageal reflux disease) Hepatic steatosis Hyperlipidemia Impotence of organic origin Insomnia Obesity Testicular hypofunction Tongue cancer Stage IIB, T2, N1, 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 Chemo/RT with Cisplatin and RT and Ethyol. RT completed 02/28/09. Past Surgical History: Procedure Laterality Date EGD W/ PLACEMENT OR REPLACEMENT PEG 04/04/2023 NECK SURGERY 2008 for cancer INGUINAL HERNIA REPAIR 1988 REMOVAL CATARACT (PEM) Bilateral VASECTOMY Social History Tobacco Use Smoking status: Former Types: Cigarettes Smokeless tobacco: Never Substance Use Topics Alcohol use: No Family History Problem Relation Age of Onset No known problems Mother Heart Disease - Other Father Heart Disease - Other Brother Heart Disease - Other Other Coronary Artery Disease Other Medications Prior to Admission Medication Sig Dispense Refill Last Dose/Taking Acetaminophen 325 MG tablet Take 2 tablets by mouth Every 6 hours as needed. 07/29/2024 apixaban 5 MG tablet Take 1 tablet by mouth every 12 hours. 60 tablet 0 07/29/2024 Evening Doxazosin 4 MG tablet Take 1 tablet by mouth at bedtime. 07/29/2024 Bedtime faMOTIdine 20 MG tablet Take 1 tablet by mouth 2 times daily. 07/29/2024 FIBER PO 80ml/hr of Compleat 1.5 continuously for 24 hours. Use 1 carton of Benecalorie daily. Flush with 200ml water four times per day. 07/30/2024 Finasteride 5 MG tablet Take 1 tablet by mouth daily. 07/29/2024 Evening fluticasone 50 MCG/ACT Suspension nasal spray 2 sprays by Nasal route daily. 07/29/2024 Morning Lactobacillus Rhamnosus, GG, (culturelle) capsule capsule Take 1 capsule by mouth daily. 07/29/2024 Morning Metoclopramide 5 MG tablet Take 1 tablet by mouth Twice daily. 07/29/2024 Evening Nutritional Supplements (Boost VHC) Liquid 52 mL by Enteral route. 07/29/2024 roflumilast (Daliresp) 500 MCG tablet Take 1 tablet by mouth daily. 30 tablet 5 07/29/2024 Sertraline (Zoloft) 25 MG tablet Take 1 tablet by mouth daily. 90 tablet 1 07/29/2024 Evening SUMAtriptan 50 MG tablet Take 1 tablet by mouth Every 2 hours as needed. Past Week Albuterol (2.5 MG/3ML) 0.083% inhalation solution Take 3 mL by nebulization every 6 hours as needed for Shortness of Breath. (Patient not taking: Reported on 07/23/2024) 360 mL 5 budesonide 0.5 MG/2ML nebulizer suspension Inhale 2 mL 2 times daily. GARGLE, RINSE MOUTH AFTER USE (Patient not taking: Reported on 07/23/2024) 360 mL 3 formoterol (Perforomist) 20 MCG/2ML Nebu Soln nebulizer solution Take 2 mL by nebulization 2 times daily. GARGLE, RINSE MOUTH AFTER USE (Patient not taking: Reported on 07/23/2024) 360 mL 3 Ipratropium-albuterol 0.5-2.5 (3) MG/3ML nebulizer solution Take 3 mL by nebulization every 4 hours as needed for Shortness of Breath, Wheezing, Cough or Breathing Treatment. (Patient not taking: Reported on 07/23/2024) 360 mL 11 Nebulizer Misc 1 Device by Unknown route every 4 hours as needed. (Patient not taking: Reported on 07/23/2024) 1 Each 0 ondansetron 4 MG/5ML solution (Patient not taking: Reported on 07/23/2024) Pantoprazole (Protonix) [address] tablet DR Take 1 tablet by mouth daily. 90 tablet 1 predniSONE 10 MG tablet Take 4 tablets by mouth for 3 days, then take 3 tablets by mouth for 3 days, then take 2 tablets by mouth for 3 days, 1 tablet for 3 days (Patient not taking: Reported on 07/23/2024) 30 tablet 0 Revefenacin (Yupelri) 175 MCG/3ML Solution Inhale 3 mL daily. (Patient not taking: Reported on 07/23/2024) 90 mL 11 SPACER FOR INHALER PRESCRIPTION Use with inhaler as directed (Patient not taking: Reported on 07/23/2024) 1 Each 0 Testosterone 25 MG/2.5GM (1%) Gel gel Place 2.5 g on skin daily. 225 g 0 traMADol (Ultram) 50 MG tablet Take 1 tablet by mouth every 4 hours as needed. 180 tablet 1 Allergies Allergen Reactions Budesonide Throat constriction Ipratropium-Albuterol Right side of face gets numb Revefenacin Throat reconstruction Review of Systems: Ten systems reviewed and found to be negative unless otherwise stated in the history and present illness. PHYSICAL EXAM: Patient Vitals for the past 8 hrs: BP Temp Temp src Pulse Resp SpO2 Height Weight 07/30/24 1531 90/58 97.7 F (36.5 C) Temporal 71 16 97 % -- -- 07/30/24 1512 -- -- -- -- -- -- 1.829 m (6') 82.2 kg (181 lb 3.5 oz) 07/30/24 1404 93/66 98.2 F (36.8 C) Temporal 70 18 90 % -- -- 07/30/24 1245 -- -- -- -- 19 -- -- -- 07/30/24 1230 100/67 -- -- 87 -- 92 % -- -- 07/30/24 1210 -- -- -- 88 (!) 36 (!) 88 % -- -- 07/30/24 1205 -- -- -- 84 (!) 32 (!) 85 % -- -- 07/30/24 1200 108/72 -- -- 86 (!) 33 (!) 84 % -- -- 07/30/24 1130 120/66 -- -- 87 -- 94 % -- -- 07/30/24 1000 111/74 -- -- 77 18 99 % -- -- 07/30/24 0900 93/59 -- -- 76 19 94 % -- -- 07/30/24 0755 -- -- -- -- -- 93 % -- -- 07/30/24 0750 -- -- -- -- -- (!) 87 % -- -- 07/30/24 0749 -- -- -- 82 -- (!) 87 % -- -- 07/30/24 0747 -- -- -- -- -- -- -- 78.7 kg (173 lb 9.6 oz) 07/30/24 0745 89/68 97.6 F (36.4 C) Oral -- 20 -- -- -- General: Patient sleeping. HEENT: Normalcephalic, atraumatic. Pupils equal, round, reactive, to light and accomodation B/L. Bilateral nares patent without obvious drainage. Oral mucosa moist, pink, intact without ulcers or lesions. Neck: No JVD, no thyromegaly, no anterior or posterior lymphadenopathy. Cardiovascular: Regular rate and rhythm, without murmurs, rubs, or gallops. Respiratory: Bilateral Upper and Lower Lobes anterior and posteriorly without wheezes, rales, or rhonchi Abdomen: Soft, rounded, non-tender. Bowel sounds present x4 quadrants. No rebound. No organomegaly or masses noted upon deep palpation. PEG tube in place. No erythema or edema noted to site. Extremities: No edema, clubbing or cyanosis, pulses palpable 2+ distally. Neuro: Patient resting comfortably. Diagnostics: Lab Results Component Value Date WBC 13.6 (H) 07/30/2024 HGB 14.2 07/30/2024 HCT 41.3 (L) 07/30/2024 PLATELET 130 07/30/2024 MCV 93.1 07/30/2024 Lab Results Component Value Date INR 1.26 (H) 07/30/2024 INR 1.20 (H) 06/14/2023 INR 1.27 (H) 05/26/2023 PT 16.0 (H) 07/30/2024 PT 15.3 (H) 06/14/2023 PT 16.0 (H) 05/26/2023 Lab Results Component Value Date CREATSERUM 0.90 07/30/2024 BUN 31 (H) 07/30/2024 SODIUM 145 07/30/2024 POTASSIUM 3.8 07/30/2024 CHLORIDE 101 07/30/2024 CO2 34 (H) 07/30/2024 Lab Results Component Value Date SPGRVTYUR 1.015 07/30/2024 GLUCOSEURINE NEGATIVE 07/30/2024 BILIRUBINURI NEGATIVE 07/30/2024 KETONESURINE NEGATIVE 07/30/2024 NITRITESURIN NEGATIVE 07/30/2024 LEUKOCESTUR NEGATIVE 07/30/2024 WBCURINE 1 TO 5 07/30/2024 RBCURINE NEGATIVE 07/30/2024 BACTERIAURIN TRACE (A) 07/30/2024 Full Code Impression and Plan: Principal Problem: Elevated troponin Active Problems: Essential hypertension Dysphagia Leukocytosis GERD (gastroesophageal reflux disease) HLD (hyperlipidemia) Nausea & vomiting Lactate blood increase Elevated troponin Patient asymptomatic Troponin@ 120 or arrival, trending down now Chest XR and ECG non-acute Echocardiogram ordered Nitroglycerin PRN for chest pain DVT/GI prophylaxis Currently on 2 liters NC, baseline Oxygen and incentive spirometry Social work consulted for discharge planning Monitor telemetry, labs and VS Dysphagia Patient NPO with home PEG tube feedings Nausea & vomiting PRN medication for nausea ordered GERD (gastroesophageal reflux disease) Protonix ordered for hospital stay Resume home treatment at discharge Essential hypertension Resume home medication as ordered Follow up after discharged with PCP Labetalol PRN for SBP> 160 Monitor VS HLD (hyperlipidemia) Resume home medication as ordered Follow up after discharged with PCP Lipid panel ordered PT OT SS for dc planning GI/DVT prophylaxis with protonix and Lovenox This plan of care was initiated in collaboration with the attending physician. I personally spent 20 minutes in the review of diagnostics, images, labs and assessment of patient to provide care for this patient. Please note Portions of this note utilized [employer] dictation software, please excuse any typographical or grammatical errors Cosigned by Burton George MD at 07/30/2024 11:47 PM EDT Associated attestation - Burton George MD - 07/30/2024 11:47 PM EDT Patient seen and examined independently on date of exam on 07/30/2024 with PROJECT FACILITATOR at bedside. Patient brought to the ED for evaluation of subjective fevers at home. felt patient was febrile 2/2 tactile touch. Patient had been apparently having some cough of unclear etiology. Cough was nonproductive. Patient evaluated in the ED. Patient did have a slight elevation of troponin and there was some concern if patient has cough and nausea was related to cardiac ischemia and therefore requested patient be admitted for evaluation and rule out ACS given patient's extensive PMH. On exam, patient is alert. His speech is dysarthric but understandable. He does not appear toxic. Vital signs reviewed. Afebrile. He is at RA. Head is atraumatic. PERRLA. EOMI. Sclera is anicteric. E, N normal. Oropharynx reveals dry mucous membranes. There is no thrush. Neck is supple. Old surgical scars. No thyromegaly or masses. No carotid bruits. Lungs CTAB. Slightly diminished lung volumes. Air exchange is fair. I do not appreciate any wheezing. No crackles. Heart is regular. Normal S1-S2. No S3. No murmurs appreciated. Abdomen is soft. There is a PEG button in place. Peg site is clean. Bowel sounds present. No organomegaly appreciated. Nontender. No lower extremity edema. No calf tenderness. Poor muscle mass. No gross focal neurologic deficits. Patient does follow simple commands and can move all extremities x4 with antigravity strength. A&O x3. Musculoskeletal exam reveals poor muscle mass. There is no gross acute muscular skeletal deformity. Labs reviewed. Trop 113 CXR, personally reviewed, nonacute. Echocardiogram report reviewed hyperdynamic. EF greater than 80%. Patient is clinically stable is in no acute distress. was not present at bedside during evaluation. All of the above history was obtained from medical records as well as discussion with ED providers. Patient does have a mild elevation of his troponin technical services representative some leakage but echocardiogram reveals no wall motion hypokinesis. Given patient's other comorbidities, GDMT recommended with outpatient cardiac stress test a consideration. We will continue observe patient overnight. Trend his troponin. Probable DC in a.m.. I have reviewed matthew aspects of the assessments and plan with the PROJECT FACILITATOR and agree with documentation outlined in addition to my notations. Additionally Time spent includes any discussion with consultants, medical staff and Emergency Department Physician. Burton George MD 07/30/2024 This note was created with the assistance of [employer]. While intending to generate a document that actually reflects the content of the visit, the document can still have some errors including those of syntax and sound a like substitutions which may escape proof reading. In such instances, actual meaning can be extrapolated by contextual diversion. [facility] 07-30-2024 Evaluation + Plan note Associated Problem(s): HLD (hyperlipidemia) Resume home medication as ordered Follow up after discharged with PCP Lipid panel ordered [facility] 07-30-2024 History and physical note History and Physical Examination 07/30/24 3:33 PM Amy 1950 Chief Complaint: Chief Complaint Patient presents with Fever states patient feels hot. Cough states he hasn't been able to catch his breath and persistently coughing until vomiting. History of Present Illness: Mr. Amy Sun is a 74 year old male with a past medical history including hypertension, hyperlipidemia, COPD with emphysema, chronic respiratory failure with home O2@ 2 liters, DDD, anxiety/depression, aspiration pneumonia, dysphagia, history of PE, BPH, tongue cancer S/P PEG tube placement, GERD, insomnia, obesity and former tobacco abuse who presented to ER for evaluation of cough and fever. Patient is resting comfortably at this time so information for HPI retrieved from spouse and charting. According to spouse patient started having nausea with vomiting last night. She tells me this is the first time he has ever vomited up his tube feedings. He has a feeding tube due to concerns for aspiration secondary to his tongue cancer . He was complaining of some shortness a breath and coughing essentially he has complaining of dyspnea with some nausea and vomiting. Denied any chest pain at the time no diaphoresis. Patient denies any recent diarrhea. Denies feeling palpations, having ankle edema or urinary complaints. Patient sleeps in his man cave and climbs more than 10 steps to get upstairs without complaints and walks without complication. Spouse tells me he always sleeps with his mouth open. She does also inform me that he swishes soda and water in his mouth but does not swallow it to prevent dryness. ER work up involved labs that showed lactate@ 28. CO2@ 34. Troponin@ 120. White count@ 13.6. Chest XR and ECG non-acute, patient afebrile on arrival, HR@ 82, RR@ 20, BP@ 89/68 and oxygenation WNL on his baseline. Due to cardiac risk factors and complaints, patient was admitted to floor for ACS rule out. Today the patient denies headaches, blurred vision, lightheadedness, fever or chills. The patient denies back pain, diarrhea/constipation, dysuria, unusual arthralgias, myalgias, skin rashes or lesions. Call light within reach. Objective: Patient Active Problem List Diagnosis Date Noted Lactate blood increase 07/30/2024 Oral prerna 07/05/2024 Pneumonia of both lower lobes due to infectious organism 07/04/2024 Dependence on nocturnal oxygen therapy 07/04/2024 Hypernatremia 07/04/2024 History of pulmonary embolism 07/04/2024 Acute hypoxemic respiratory failure 06/07/2024 Pulmonary lesion, right 01/13/2024 Single subsegmental pulmonary embolism without acute cor pulmonale 12/31/2023 Chronic respiratory failure with hypoxia, on home oxygen therapy 12/31/2023 Pulmonary embolus, right 12/22/2023 Venous insufficiency 12/18/2023 Constipation 12/17/2023 Left inguinal hernia 12/17/2023 Difficulty sleeping 11/22/2023 Hyponatremia 11/22/2023 Postnasal drip 11/22/2023 AAA (abdominal aortic aneurysm) 11/19/2023 Chronic obstructive pulmonary disease 11/11/2023 Nausea & vomiting 10/31/2023 Pharyngoesophageal dysphagia 10/31/2023 Vomiting 10/23/2023 Anxiety and depression 09/25/2023 Migraine without aura and without status migrainosus, not intractable 09/25/2023 Hypertension 09/25/2023 Edema of both lower extremities 09/25/2023 Gastroesophageal reflux disease 09/25/2023 Cough with hemoptysis 06/15/2023 Mass of pleura 06/15/2023 Centrilobular emphysema 06/04/2023 PNA (pneumonia) 05/26/2023 Benign hypertension 05/25/2023 Aspiration pneumonia of both lungs 05/25/2023 Leukocytosis 05/25/2023 BPH (benign prostatic hyperplasia) 05/25/2023 COPD exacerbation 05/25/2023 GERD (gastroesophageal reflux disease) 05/25/2023 HLD (hyperlipidemia) 05/25/2023 Acute respiratory failure with hypoxia 05/24/2023 Multifocal pneumonia 05/09/2023 Other hypotension 05/09/2023 Elevated alkaline phosphatase level 05/09/2023 COPD (chronic obstructive pulmonary disease) with acute bronchitis 04/19/2023 Dysphagia 04/19/2023 Cough 04/19/2023 Squamous cell carcinoma of tongue 04/19/2023 Hyperglycemia 04/19/2023 Aspiration pneumonia 04/19/2023 S/P percutaneous endoscopic gastrostomy (PEG) tube placement 04/19/2023 COPD (chronic obstructive pulmonary disease) 04/19/2023 Aspiration into airway 04/19/2023 GERD (gastroesophageal reflux disease) 04/19/2023 Noncompliance 04/19/2023 Failure to thrive in adult 04/07/2023 Leukocytosis 03/03/2023 Cough 03/03/2023 Fever 03/03/2023 Dry heaves 03/03/2023 Elevated troponin 03/03/2023 Severe protein-calorie malnutrition 03/02/2023 Aspiration into airway 12/06/2022 Aspiration into lower respiratory tract 12/06/2022 Dysphagia 07/23/2022 Xerostomia due to radiotherapy 07/23/2022 Vitelliform lesion of macula 11/01/[address] lung nodules on CT 01/15/2019 Hyperopia of both eyes with astigmatism and presbyopia 06/02/2018 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 (central serous retinopathy), 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 Epiretinal membrane (ERM) of left eye 06/02/2017 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/02/2017 Benign prostatic hyperplasia with lower urinary tract symptoms 07/31/2016 Arthritis 07/31/2016 Impotence of organic origin Abnormal glucose Testicular hypofunction Fatigue Enthesopathy Gastroesophageal reflux disease without esophagitis Hyperlipidemia BPH without urinary obstruction Degenerative joint disease Bilateral leg edema Chronic kidney disease (CKD), stage I Obesity Tear film insufficiency 06/05/2016 Pseudophakia of both eyes 04/06/2015 Essential hypertension 03/14/2015 Astigmatism of left eye 03/14/2015 Vitreous floaters of both eyes 03/14/2015 Erythrocytosis 09/15/2014 Secondary polycythemia 09/15/2014 Hepatic steatosis Past Medical History: Diagnosis Date Abnormal glucose Bilateral leg edema BPH without urinary obstruction Chronic kidney disease (CKD), stage I Degenerative joint disease Enthesopathy Essential hypertension, benign Fatigue Former smoker 2 PPD x46 years, quite 09/19/2008 GERD (gastroesophageal reflux disease) Hepatic steatosis Hyperlipidemia Impotence of organic origin Insomnia Obesity Testicular hypofunction Tongue cancer Stage IIB, T2, N1, 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 Chemo/RT with Cisplatin and RT and Ethyol. RT completed 02/28/09. Past Surgical History: Procedure Laterality Date EGD W/ PLACEMENT OR REPLACEMENT PEG 04/04/2023 NECK SURGERY 2009 for cancer INGUINAL HERNIA REPAIR 1988 REMOVAL CATARACT (PEM) Bilateral VASECTOMY Social History Tobacco Use Smoking status: Former Types: Cigarettes Smokeless tobacco: Never Substance Use Topics Alcohol use: No Family History Problem Relation Age of Onset No known problems Mother Heart Disease - Other Father Heart Disease - Other Brother Heart Disease - Other Other Coronary Artery Disease Other Medications Prior to Admission Medication Sig Dispense Refill Last Dose/Taking Acetaminophen 325 MG tablet Take 2 tablets by mouth Every 6 hours as needed. 07/29/2024 apixaban 5 MG tablet Take 1 tablet by mouth every 12 hours. 60 tablet 0 07/29/2024 Evening Doxazosin 4 MG tablet Take 1 tablet by mouth at bedtime. 07/29/2024 Bedtime faMOTIdine 20 MG tablet Take 1 tablet by mouth 2 times daily. 07/29/2024 FIBER PO 80ml/hr of Compleat 1.5 continuously for 24 hours. Use 1 carton of Benecalorie daily. Flush with 200ml water four times per day. 07/30/2024 Finasteride 5 MG tablet Take 1 tablet by mouth daily. 07/29/2024 Evening fluticasone 50 MCG/ACT Suspension nasal spray 2 sprays by Nasal route daily. 07/29/2024 Morning Lactobacillus Rhamnosus, GG, (culturelle) capsule capsule Take 1 capsule by mouth daily. 07/29/2024 Morning Metoclopramide 5 MG tablet Take 1 tablet by mouth Twice daily. 07/29/2024 Evening Nutritional Supplements (Boost [facility]) Liquid 52 mL by Enteral route. 07/29/2024 roflumilast (Daliresp) 500 MCG tablet Take 1 tablet by mouth daily. 30 tablet 5 07/29/2024 Sertraline (Zoloft) 25 MG tablet Take 1 tablet by mouth daily. 90 tablet 1 07/29/2024 Evening SUMAtriptan 50 MG tablet Take 1 tablet by mouth Every 2 hours as needed. Past Week Albuterol (2.5 MG/3ML) 0.083% inhalation solution Take 3 mL by nebulization every 6 hours as needed for Shortness of Breath. (Patient not taking: Reported on 07/23/2024) 360 mL 5 budesonide 0.5 MG/2ML nebulizer suspension Inhale 2 mL 2 times daily. GARGLE, RINSE MOUTH AFTER USE (Patient not taking: Reported on 07/23/2024) 360 mL 3 formoterol (Perforomist) 20 MCG/2ML Nebu Soln nebulizer solution Take 2 mL by nebulization 2 times daily. GARGLE, RINSE MOUTH AFTER USE (Patient not taking: Reported on 07/23/2024) 360 mL 3 Ipratropium-albuterol 0.5-2.5 (3) MG/3ML nebulizer solution Take 3 mL by nebulization every 4 hours as needed for Shortness of Breath, Wheezing, Cough or Breathing Treatment. (Patient not taking: Reported on 07/23/2024) 360 mL 11 Nebulizer Misc 1 Device by Unknown route every 4 hours as needed. (Patient not taking: Reported on 07/23/2024) 1 Each 0 ondansetron 4 MG/5ML solution (Patient not taking: Reported on 07/23/2024) Pantoprazole (Protonix) [address] tablet DR Take 1 tablet by mouth daily. 90 tablet 1 predniSONE 10 MG tablet Take 4 tablets by mouth for 3 days, then take 3 tablets by mouth for 3 days, then take 2 tablets by mouth for 3 days, 1 tablet for 3 days (Patient not taking: Reported on 07/23/2024) 30 tablet 0 Revefenacin (Yupelri) 175 MCG/3ML Solution Inhale 3 mL daily. (Patient not taking: Reported on 07/23/2024) 90 mL 11 SPACER FOR INHALER PRESCRIPTION Use with inhaler as directed (Patient not taking: Reported on 07/23/2024) 1 Each 0 Testosterone 25 MG/2.5GM (1%) Gel gel Place 2.5 g on skin daily. 225 g 0 traMADol (Ultram) 50 MG tablet Take 1 tablet by mouth every 4 hours as needed. 180 tablet 1 Allergies Allergen Reactions Budesonide Throat constriction Ipratropium-Albuterol Right side of face gets numb Revefenacin Throat reconstruction Review of Systems: Ten systems reviewed and found to be negative unless otherwise stated in the history and present illness. PHYSICAL EXAM: Patient Vitals for the past 8 hrs: BP Temp Temp src Pulse Resp SpO2 Height Weight 07/30/24 1531 90/58 97.7 F (36.5 C) Temporal 71 16 97 % -- -- 07/30/24 1512 -- -- -- -- -- -- 1.829 m (6') 82.2 kg (181 lb 3.5 oz) 07/30/24 1404 93/66 98.2 F (36.8 C) Temporal 70 18 90 % -- -- 07/30/24 1245 -- -- -- -- 19 -- -- -- 07/30/24 1230 100/67 -- -- 87 -- 92 % -- -- 07/30/24 1210 -- -- -- 88 (!) 36 (!) 88 % -- -- 07/30/24 1205 -- -- -- 84 (!) 32 (!) 85 % -- -- 07/30/24 1200 108/72 -- -- 86 (!) 33 (!) 84 % -- -- 07/30/24 1130 120/66 -- -- 87 -- 94 % -- -- 07/30/24 1000 111/74 -- -- 77 18 99 % -- -- 07/30/24 0900 93/59 -- -- 76 19 94 % -- -- 07/30/24 0755 -- -- -- -- -- 93 % -- -- 07/30/24 0750 -- -- -- -- -- (!) 87 % -- -- 07/30/24 0749 -- -- -- 82 -- (!) 87 % -- -- 07/30/24 0747 -- -- -- -- -- -- -- 78.7 kg (173 lb 9.6 oz) 07/30/24 0745 89/68 97.6 F (36.4 C) Oral -- 20 -- -- -- General: Patient sleeping. HEENT: Normalcephalic, atraumatic. Pupils equal, round, reactive, to light and accomodation B/L. Bilateral nares patent without obvious drainage. Oral mucosa moist, pink, intact without ulcers or lesions. Neck: No JVD, no thyromegaly, no anterior or posterior lymphadenopathy. Cardiovascular: Regular rate and rhythm, without murmurs, rubs, or gallops. Respiratory: Bilateral Upper and Lower Lobes anterior and posteriorly without wheezes, rales, or rhonchi Abdomen: Soft, rounded, non-tender. Bowel sounds present x4 quadrants. No rebound. No organomegaly or masses noted upon deep palpation. PEG tube in place. No erythema or edema noted to site. Extremities: No edema, clubbing or cyanosis, pulses palpable 2+ distally. Neuro: Patient resting comfortably. Diagnostics: Lab Results Component Value Date WBC 13.6 (H) 07/30/2024 HGB 14.2 07/30/2024 HCT 41.3 (L) 07/30/2024 PLATELET 130 07/30/2024 MCV 93.1 07/30/2024 Lab Results Component Value Date INR 1.26 (H) 07/30/2024 INR 1.20 (H) 06/14/2023 INR 1.27 (H) 05/26/2023 PT 16.0 (H) 07/30/2024 PT 15.3 (H) 06/14/2023 PT 16.0 (H) 05/26/2023 Lab Results Component Value Date CREATSERUM 0.90 07/30/2024 BUN 31 (H) 07/30/2024 SODIUM 145 07/30/2024 POTASSIUM 3.8 07/30/2024 CHLORIDE 101 07/30/2024 CO2 34 (H) 07/30/2024 Lab Results Component Value Date SPGRVTYUR 1.015 07/30/2024 GLUCOSEURINE NEGATIVE 07/30/2024 BILIRUBINURI NEGATIVE 07/30/2024 KETONESURINE NEGATIVE 07/30/2024 NITRITESURIN NEGATIVE 07/30/2024 LEUKOCESTUR NEGATIVE 07/30/2024 WBCURINE 1 TO 5 07/30/2024 RBCURINE NEGATIVE 07/30/2024 BACTERIAURIN TRACE (A) 07/30/2024 Full Code Impression and Plan: Principal Problem: Elevated troponin Active Problems: Essential hypertension Dysphagia Leukocytosis GERD (gastroesophageal reflux disease) HLD (hyperlipidemia) Nausea & vomiting Lactate blood increase Elevated troponin Patient asymptomatic Troponin@ 120 or arrival, trending down now Chest XR and ECG non-acute Echocardiogram ordered Nitroglycerin PRN for chest pain DVT/GI prophylaxis Currently on 2 liters NC, baseline Oxygen and incentive spirometry Social work consulted for discharge planning Monitor telemetry, labs and VS Dysphagia Patient NPO with home PEG tube feedings Nausea & vomiting PRN medication for nausea ordered GERD (gastroesophageal reflux disease) Protonix ordered for hospital stay Resume home treatment at discharge Essential hypertension Resume home medication as ordered Follow up after discharged with PCP Labetalol PRN for SBP> 160 Monitor VS HLD (hyperlipidemia) Resume home medication as ordered Follow up after discharged with PCP Lipid panel ordered PT OT SS for dc planning GI/DVT prophylaxis with protonix and Lovenox This plan of care was initiated in collaboration with the attending physician. I personally spent 20 minutes in the review of diagnostics, images, labs and assessment of patient to provide care for this patient. Please note Portions of this note utilized [employer] dictation software, please excuse any typographical or grammatical errors Cosigned by Burton George MD at 07/30/2024 11:47 PM EDT Associated attestation - Burton George MD - 07/30/2024 11:47 PM EDT Patient seen and examined independently on date of exam on 07/30/2024 with PROJECT FACILITATOR at bedside. Patient brought to the ED for evaluation of subjective fevers at home. felt patient was febrile 2/2 tactile touch. Patient had been apparently having some cough of unclear etiology. Cough was nonproductive. Patient evaluated in the ED. Patient did have a slight elevation of troponin and there was some concern if patient has cough and nausea was related to cardiac ischemia and therefore requested patient be admitted for evaluation and rule out ACS given patient's extensive PMH. On exam, patient is alert. His speech is dysarthric but understandable. He does not appear toxic. Vital signs reviewed. Afebrile. He is at RA. Head is atraumatic. PERRLA. EOMI. Sclera is anicteric. E, N normal. Oropharynx reveals dry mucous membranes. There is no thrush. Neck is supple. Old surgical scars. No thyromegaly or masses. No carotid bruits. Lungs CTAB. Slightly diminished lung volumes. Air exchange is fair. I do not appreciate any wheezing. No crackles. Heart is regular. Normal S1-S2. No S3. No murmurs appreciated. Abdomen is soft. There is a PEG button in place. Peg site is clean. Bowel sounds present. No organomegaly appreciated. Nontender. No lower extremity edema. No calf tenderness. Poor muscle mass. No gross focal neurologic deficits. Patient does follow simple commands and can move all extremities x4 with antigravity strength. A&O x3. Musculoskeletal exam reveals poor muscle mass. There is no gross acute muscular skeletal deformity. Labs reviewed. Trop 113 CXR, personally reviewed, nonacute. Echocardiogram report reviewed hyperdynamic. EF greater than 80%. Patient is clinically stable is in no acute distress. was not present at bedside during evaluation. All of the above history was obtained from medical records as well as discussion with ED providers. Patient does have a mild elevation of his troponin technical services representative some leakage but echocardiogram reveals no wall motion hypokinesis. Given patient's other comorbidities, GDMT recommended with outpatient cardiac stress test a consideration. We will continue observe patient overnight. Trend his troponin. Probable DC in a.m.. I have reviewed matthew aspects of the assessments and plan with the PROJECT FACILITATOR and agree with documentation outlined in addition to my notations. Additionally Time spent includes any discussion with consultants, medical staff and Emergency Department Physician. Burton George MD 07/30/2024 This note was created with the assistance of [employer]ictation [employer]. While intending to generate a document that actually reflects the content of the visit, the document can still have some errors including those of syntax and sound a like substitutions which may escape proof reading. In such instances, actual meaning can be extrapolated by contextual diversion. documented in this encounter [facility] 07-30-2024 Evaluation + Plan note Associated Problem(s): Essential hypertension Resume home medication as ordered Follow up after discharged with PCP Labetalol PRN for SBP> 160 Monitor VS [facility] 07-30-2024 Evaluation + Plan note Associated Problem(s): GERD (gastroesophageal reflux disease) Protonix ordered for hospital stay Resume home treatment at discharge [facility] 07-30-2024 Evaluation + Plan note Associated Problem(s): Nausea & vomiting PRN medication for nausea ordered [facility] 07-30-2024 Evaluation + Plan note Associated Problem(s): Dysphagia Patient NPO with home PEG tube feedings [facility] 07-30-2024 Evaluation + Plan note Associated Problem(s): Elevated troponin Patient asymptomatic Troponin@ 120 or arrival, trending down now Chest XR and ECG non-acute Echocardiogram ordered Nitroglycerin PRN for chest pain DVT/GI prophylaxis Currently on 2 liters NC, baseline Oxygen and incentive spirometry Social work consulted for discharge planning Monitor telemetry, labs and VS [facility] 07-30-2024 Emergency department Note Patient taken to CT by magaly Dumont in stable condition on continuous oxygen. cart sie and taking all personal belongings. [facility] 07-30-2024 Emergency department Note Patient taken to CT by magaly Dumont in stable condition on continuous oxygen. cart sie and taking all personal belongings. cart side with feeding tube supplies, syringes don't fit connection to administer scheduled medications. Supply called for syringe. Message via secure chat to Bhavesh Mike NP and made aware that patient does not take medications orally and requested to have orders changed. Also requests pain medication via IV. Call to to verify how patient takes medications. Per all meds are adminsitered via feeding tube and she is on way back to facility with feeding tube supplies. Dr Andrews speaking with Dr George at this time Patient eants to wait for tylenol administration until gets back. Message left for Dr George to give a call back to speak with Dr Andrews Patient aware of urine needed. Emergency Department Report [facility] EMERGENCY [facility]PARTMENT Service Date:.07/30/24 PCP: Ulices Clark Chief Complaint: Chief Complaint Patient presents with Fever states patient feels hot. Cough states he hasn't been able to catch his breath and persistently coughing until vomiting. HPI Amy Sun is a 74 y.o. male presents to the ED today due to nausea with vomiting last night seems to be the main concern from the . He has a feeding tube due to concerns for aspiration with COPD. He is complaining of some shortness a breath and coughing essentially he has complaining of dyspnea with some nausea and vomiting. Denied any chest pain at the time no diaphoresis or chest pain during this event. Review of Systems: Review of Systems Constitutional: Negative for chills and fever. HENT: Negative for congestion, sore throat, trouble swallowing and voice change. Eyes: Negative for discharge and visual disturbance. Respiratory: Negative for cough and shortness of breath. Cardiovascular: Negative for chest pain and leg swelling. Gastrointestinal: Positive for nausea and vomiting. Negative for abdominal pain. Genitourinary: Negative for dysuria. Musculoskeletal: Negative for back pain. Skin: Negative for rash. Neurological: Negative for weakness. Psychiatric/Behavioral: Negative for confusion. All other systems reviewed and are negative. 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 Chemo/RT with Cisplatin and RT and Ethyol. RT completed 02/28/09. Past Surgical History: Past Surgical History: Procedure Laterality Date EGD W/ PLACEMENT OR REPLACEMENT PEG 04/04/2023 NECK SURGERY 2008 for cancer INGUINAL HERNIA REPAIR 1988 REMOVAL CATARACT (PEM) Bilateral VASECTOMY Allergies: Allergies Allergen Reactions Budesonide Throat constriction Ipratropium-Albuterol Right side of face gets numb Revefenacin Throat reconstruction Medications: Patient's Medications New Prescriptions No medications on file Previous Medications ACETAMINOPHEN 325 MG TABLET Take 2 tablets by mouth Every 6 hours as needed. ALBUTEROL (2.5 MG/3ML) 0.083% INHALATION SOLUTION Take 3 mL by nebulization every 6 hours as needed for Shortness of Breath. APIXABAN 5 MG TABLET Take 1 tablet by mouth every 12 hours. BUDESONIDE 0.5 MG/2ML NEBULIZER SUSPENSION Inhale 2 mL 2 times daily. GARGLE, RINSE MOUTH AFTER USE DOXAZOSIN 4 MG TABLET Take 1 tablet by mouth at bedtime. FAMOTIDINE 20 MG TABLET Take 1 tablet by mouth 2 times daily. FIBER PO 80ml/hr of Compleat 1.5 continuously for 24 hours. Use 1 carton of Benecalorie daily. Flush with 200ml water four times per day. FINASTERIDE 5 MG TABLET Take 1 tablet by mouth daily. FLUTICASONE 50 MCG/ACT SUSPENSION NASAL SPRAY 2 sprays by Nasal route daily. FORMOTEROL (PERFOROMIST) 20 MCG/2ML NEBU SOLN NEBULIZER SOLUTION Take 2 mL by nebulization 2 times daily. GARGLE, RINSE MOUTH AFTER USE IPRATROPIUM-ALBUTEROL 0.5-2.5 (3) MG/3ML NEBULIZER SOLUTION Take 3 mL by nebulization every 4 hours as needed for Shortness of Breath, Wheezing, Cough or Breathing Treatment. LACTOBACILLUS RHAMNOSUS, GG, (CULTURELLE) CAPSULE CAPSULE Take 1 capsule by mouth daily. METOCLOPRAMIDE 5 MG TABLET Take 1 tablet by mouth Twice daily. NEBULIZER MISC 1 Device by Unknown route every 4 hours as needed. NUTRITIONAL SUPPLEMENTS (BOOST [facility]) LIQUID 52 mL by Enteral route. ONDANSETRON 4 MG/5ML SOLUTION PANTOPRAZOLE (PROTONIX) [address] TABLET DR Take 1 tablet by mouth daily. PREDNISONE 10 MG TABLET Take 4 tablets by mouth for 3 days, then take 3 tablets by mouth for 3 days, then take 2 tablets by mouth for 3 days, 1 tablet for 3 days REVEFENACIN (YUPELRI) 175 MCG/3ML SOLUTION Inhale 3 mL daily. ROFLUMILAST (DALIRESP) 500 MCG TABLET Take 1 tablet by mouth daily. SERTRALINE (ZOLOFT) 25 MG TABLET Take 1 tablet by mouth daily. SPACER FOR INHALER PRESCRIPTION Use with inhaler as directed SUMATRIPTAN 50 MG TABLET Take 1 tablet by mouth Every 2 hours as needed. TESTOSTERONE 25 MG/2.5GM (1%) GEL GEL Place 2.5 g on skin daily. TRAMADOL (ULTRAM) 50 MG TABLET Take 1 tablet by mouth every 4 hours as needed. Modified Medications No medications on file Discontinued Medications No medications on file Family History: Family History Problem Relation Age of Onset No known problems Mother Heart Disease - Other Father Heart Disease - Other Brother Heart Disease - Other Other Coronary Artery Disease Other Social History: Social History Socioeconomic History Marital status: Spouse name: Not on file Number of children: Not on file Years of education: Not on file Highest education level: Not on file Occupational History Not on file Tobacco Use Smoking status: Former Types: Cigarettes Smokeless tobacco: Never Vaping Use Vaping status: Never Used Substance and Sexual Activity Alcohol use: No Drug use: No Sexual activity: Not on file Other Topics Concern Not on file Social History Narrative Not on file Social Drivers of Health Financial Resource Strain: Not on file Food Insecurity: No Food Insecurity (07/05/2024) NCSS - Food Insecurity Worried About Running Out of Food in the Last Year: No Ran Out of Food in the Last Year: No Transportation Needs: No Transportation Needs (07/05/2024) NCSS - Transportation Lack of Transportation: No Physical Activity: Not on file Stress: Not on file Social Connections: Not on file Personal Safety: Patient Unable To Answer (07/05/2024) NCSS - Interpersonal Safety Feels Physically and Emotionally Safe: Patient unable to answer Physically Hurt by Someone: Patient unable to answer Humiliated or Emotionally Abused by Someone: Patient unable to answer Housing Stability: Not At Risk (07/05/2024) NCSS - Housing/Utilities Has Housing: Yes Worried About Losing Housing: No Unable to Get Utilities: No Physical Exam: Physical Exam Vitals and nursing note reviewed. Constitutional: General: He is not in acute distress. Appearance: Normal appearance. He is not toxic-appearing. HENT: Head: Normocephalic and atraumatic. Right Ear: External ear normal. Left Ear: External ear normal. Nose: Nose normal. Mouth/Throat: Mouth: Mucous membranes are moist. Pharynx: Uvula midline. Eyes: General: No scleral icterus. Right eye: No discharge. Left eye: No discharge. Extraocular Movements: Extraocular movements intact. Conjunctiva/sclera: Conjunctivae normal. Pupils: Pupils are equal, round, and reactive to light. Neck: Thyroid: No thyromegaly. Vascular: No JVD. Cardiovascular: Rate and Rhythm: Normal rate and regular rhythm. Heart sounds: Normal heart sounds. No murmur heard. Pulmonary: Effort: Pulmonary effort is normal. No respiratory distress. Breath sounds: Normal breath sounds. Abdominal: General: Bowel sounds are normal. Palpations: Abdomen is soft. Tenderness: There is no abdominal tenderness. Musculoskeletal: General: Normal range of motion. Right hand: Normal. Normal strength. Left hand: Normal. Normal strength. Cervical back: Normal range of motion and neck supple. Right lower leg: Normal. No swelling. No edema. Left lower leg: Normal. No swelling. No edema. Skin: General: Skin is warm. Capillary Refill: Capillary refill takes less than 2 seconds. Findings: No rash. Neurological: Mental Status: He is alert and oriented to person, place, and time. Cranial Nerves: No cranial nerve deficit. Deep Tendon Reflexes: Reflexes are normal and symmetric. Vital Signs During ED Visit Patient Vitals for the past 24 hrs: BP Temp Temp src Pulse Resp SpO2 Weight 07/30/24 1000 111/74 -- -- 77 18 99 % -- 07/30/24 0900 93/59 -- -- 76 19 94 % -- 07/30/24 0755 -- -- -- -- -- 93 % -- 07/30/24 0750 -- -- -- -- -- (!) 87 % -- 07/30/24 0749 -- -- -- 82 -- (!) 87 % -- 07/30/24 0747 -- -- -- -- -- -- 78.7 kg (173 lb 9.6 oz) 07/30/24 0745 89/68 97.6 F (36.4 C) Oral -- 20 -- -- Orders/Results: Orders Placed This Encounter BLOOD CULTURE, PERIPHERAL 1ST SITE BLOOD CULTURE, PERIPHERAL 2ND SITE [facility]EL [facility] LAB 1 - NASOPHARYNGEAL XR CHEST PA AND LATERAL 2 VIEWS CBC, EDIF, PLATELET PROTIME-INR LACTATE, BLOOD LACTATE, BLOOD CHEM 7 (LYTES,BUN,CREA,GLUC) HEPATIC FUNCTION PANEL Troponin I, High sensitivity INFLUENZA A AND B, PCR Troponin I, High sensitivity ECG ECHOCARDIOGRAM Acetaminophen (TYLENOL) tablet 975 mg URINALYSIS, MACRO URINE MICROSCOPIC Results for orders placed or performed during the hospital encounter of 07/30/24 [facility] 1 - NASOPHARYNGEAL Specimen: NASOPHARYNGEAL; Fluid/Swab Result Value Ref Range SARS COV 2 RNA, QL REAL TIME RT PCR NOT DETECTED NOT DETECTED NARRATIVE -1 This test was performed using isothermal ROBERTA for the qualitative detection of SARS-CoV-2 nucleic acid. CBC, EDIF, PLATELET Result Value Ref Range WBC (WHITE BLOOD COUNT) 13.6 (H) 3.6 - 11.0 10*3/uL RBC 4.44 4.0 - 6.1 10*6/uL HEMOGLOBIN (HGB) 14.2 14.0 - 18.0 G/DL HEMATOCRIT (HCT) 41.3 (L) 42.0 - 52.0 % Mean Cell Volume 93.1 80.0 - 100.0 FL Mean Cell HGB 32.0 26.0 - 35.0 PG Mean Cell HGB Concentration 34.4 27.0 - 37.0 G/DL RBC Distribution 14.0 11.5 - 14.5 % PLATELET COUNT 130 130 - 400 10*3/uL Mean Platelet Volume 9.7 7.4 - 11.0 FL DIFFERENTIAL TYPE AUTO DIFF % NEUTROPHILS 93.1 (H) 37.0 - 75.0 % LYMPHOCYTE 1.5 (L) 20.0 - 55.0 % MONOCYTE % 5.3 0.0 - 10.0 % EOSINOPHIL % 0.0 0.0 - 11.0 % BASOPHIL % 0.1 0.0 - 2.0 % Absolute Neutrophil Count 12.6 (H) 1.4 - 6.5 10*3/uL LYMPHOCYTES, ABSOLUTE 0.2 (L) 1.2 - 3.4 10*3/uL MONOCYTES, ABSOLUTE 0.7 0.0 - 0.7 10*3/uL ABSOLUTE EOSINOPHIL COUNT 0.0 0.0 - 0.7 10*3/uL ABSOLUTE BASOPHIL COUNT 0.0 0.0 - 0.2 10*3/uL PROTIME-INR Result Value Ref Range PT 16.0 (H) 11.8 - 14.4 SEC INR 1.26 (H) 0.85 - 1.10 LACTATE, BLOOD Result Value Ref Range LACTATE 2.8 (HH) 0.7 - 2.0 mmol/L LACTATE, BLOOD Result Value Ref Range LACTATE 1.5 0.7 - 2.0 mmol/L CHEM 7 (LYTES,BUN,CREA,GLUC) Result Value Ref Range Glucose 157 (H) 70 - 100 MG/DL BUN 31 (H) 7 - 20 mg/dL CREATININE SERUM 0.90 0.70 - 1.20 mg/dL SODIUM 145 137 - 145 MMOL/L Potassium 3.8 3.5 - 5.1 MMOL/L CHLORIDE 101 98 - 107 MMOL/L CARBON DIOXIDE (CO2) 34 (H) 22 - 30 MMOL/L ESTIMATED GFR 88 ml/min/1.73sq.m GFR COMMENT Average GFR for 70+ years old = 75. HEPATIC FUNCTION PANEL Result Value Ref Range Albumin 4.4 2.9 - 5.3 G/DL BILIRUBIN, TOTAL 1.1 0.2 - 1.3 mg/dL ALKALINE PHOSPHATASE 108 38 - 126 U/L AST 46 17 - 59 U/L BILIRUBIN, DIRECT 0.0 0.0 - 0.4 MG/DL PROTEIN, TOTAL 7.6 6.3 - 8.2 g/dL ALT 35 <50 U/L TROPONIN I, HIGH SENSITIVITY Result Value Ref Range TROPONIN I, HIGH SENSITIVITY 120 (HH) 0 - 20 pg/mL INFLUENZA A AND B, PCR Result Value Ref Range INFLUENZA A NEGATIVE NEGATIVE INFLUENZA B NEGATIVE NEGATIVE TROPONIN I, HIGH SENSITIVITY Result Value Ref Range TROPONIN I, HIGH SENSITIVITY 113 (HH) 0 - 20 pg/mL URINALYSIS, MACRO Result Value Ref Range Color, Urine YELLOW YELLOW Appearance, Urine CLEAR CLEAR Specific Plato, Urine 1.015 1.010 - 1.025 PH URINE 7.0 5.0 - 7.0 Urine Protein 30 (A) NEGATIVE mg/dl Glucose, Urine NEGATIVE NEGATIVE mg/dl Ketones, Urine NEGATIVE NEGATIVE mg/dl BILIRUBIN, URINE NEGATIVE NEGATIVE BLOOD, URINE DIPSTICK NEGATIVE NEGATIVE Nitrites, Urine NEGATIVE NEGATIVE Urobilinogen, Urine 0.2 0.2 - 1.0 E.U./dL Leukocyte esterase, Urine NEGATIVE NEGATIVE URINE MICROSCOPIC Result Value Ref Range WBC, Urine 1 TO 5 NEGATIVE /HPF RBC, Urine NEGATIVE NEGATIVE /HPF Epithelial Cells UA NONE /HPF Mucus NEGATIVE NEGATIVE Bacteria, Urine TRACE (A) NEGATIVE CRYSTALS, URINE NONE NONE CASTS, URINE NONE NONE /LPF COMMENT, URINE CULTURE CRITERIA NOT MET, NO CULTURE PERFORMED. Radiographic Imaging XR CHEST PA AND LATERAL 2 VIEWS Final Result IMPRESSION: There is no acute cardiopulmonary process. ECHOCARDIOGRAM (Results Pending) Procedures: Procedures Moderate Sedation Procedure: No Medications Ordered/Given During ED Visit Medications Acetaminophen (TYLENOL) tablet 975 mg (has no administration in time range) EKG interpreted by me no comparison available shows normal sinus rhythm rate of [address] interval 152 QTC 389. Nonspecific T changes but no acute ST segment or elevated changes or findings. Medical Decision Making Elevated troponin without any acute ST segment changes on EKG. Concerning that this nausea he was having last night may have been cardiac related. X-rays unremarkable. He is little dry was little hypotensive when he 1st came in but after a L of fluid he is feeling much better. I will admit him for elevated troponins to the hospitalist. Medical Decision Making Amount and/or Complexity of Data Reviewed Labs: ordered. Radiology: ordered. ECG/medicine tests: ordered. Risk OTC drugs. Decision regarding hospitalization. Clinical Impression: 1. Nausea 2. NSTEMI (non-ST elevated myocardial infarction) No follow-ups on file. New Prescriptions No medications on file Discontinued Medications No medications on file An After Visit Summary was printed and given to the patient with above information. Stevenson Andrews DO 07/30/24 1111 documented in this encounter [facility] 07-30-2024 Emergency department Note cart side with feeding tube supplies, syringes don't fit connection to administer scheduled medications. Supply called for syringe. [facility] 07-30-2024 Emergency department Note Message via secure chat to Bhavesh Mike NP and made aware that patient does not take medications orally and requested to have orders changed. Also requests pain medication via IV. [facility] 07-30-2024 Emergency department Note Call to to verify how patient takes medications. Per all meds are adminsitered via feeding tube and she is on way back to facility with feeding tube supplies. [facility] 07-30-[address] Andrews speaking with Dr George at this time [facility] 07-30-2024 Emergency department Note Patient eants to wait for tylenol administration until gets back. [facility] 07-30-2024 Emergency department Note Message left for Dr George to give a call back to speak with Dr Andrews [facility] 07-30-2024 Emergency department Note Patient aware of urine needed. [facility] 07-30-2024 Physician Emergency department Note Emergency Department Report [facility] EMERGENCY [facility]PART[facility] Service Date:.07/30/24 PCP: Ulices Clark Chief Complaint: Chief Complaint Patient presents with Fever states patient feels hot. Cough states he hasn't been able to catch his breath and persistently coughing until vomiting. HPI Amy Sun is a 74 y.o. male presents to the ED today due to nausea with vomiting last night seems to be the main concern from the . He has a feeding tube due to concerns for aspiration with COPD. He is complaining of some shortness a breath and coughing essentially he has complaining of dyspnea with some nausea and vomiting. Denied any chest pain at the time no diaphoresis or chest pain during this event. Review of Systems: Review of Systems Constitutional: Negative for chills and fever. HENT: Negative for congestion, sore throat, trouble swallowing and voice change. Eyes: Negative for discharge and visual disturbance. Respiratory: Negative for cough and shortness of breath. Cardiovascular: Negative for chest pain and leg swelling. Gastrointestinal: Positive for nausea and vomiting. Negative for abdominal pain. Genitourinary: Negative for dysuria. Musculoskeletal: Negative for back pain. Skin: Negative for rash. Neurological: Negative for weakness. Psychiatric/Behavioral: Negative for confusion. All other systems reviewed and are negative. 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 Chemo/RT with Cisplatin and RT and Ethyol. RT completed 02/28/09. Past Surgical History: Past Surgical History: Procedure Laterality Date EGD W/ PLACEMENT OR REPLACEMENT PEG 04/04/2023 NECK SURGERY 2009 for cancer INGUINAL HERNIA REPAIR 1988 REMOVAL CATARACT (PEM) Bilateral VASECTOMY Allergies: Allergies Allergen Reactions Budesonide Throat constriction Ipratropium-Albuterol Right side of face gets numb Revefenacin Throat reconstruction Medications: Patient's Medications New Prescriptions No medications on file Previous Medications ACETAMINOPHEN 325 MG TABLET Take 2 tablets by mouth Every 6 hours as needed. ALBUTEROL (2.5 MG/3ML) 0.083% INHALATION SOLUTION Take 3 mL by nebulization every 6 hours as needed for Shortness of Breath. APIXABAN 5 MG TABLET Take 1 tablet by mouth every 12 hours. BUDESONIDE 0.5 MG/2ML NEBULIZER SUSPENSION Inhale 2 mL 2 times daily. GARGLE, RINSE MOUTH AFTER USE DOXAZOSIN 4 MG TABLET Take 1 tablet by mouth at bedtime. FAMOTIDINE 20 MG TABLET Take 1 tablet by mouth 2 times daily. FIBER PO 80ml/hr of Compleat 1.5 continuously for 24 hours. Use 1 carton of Benecalorie daily. Flush with 200ml water four times per day. FINASTERIDE 5 MG TABLET Take 1 tablet by mouth daily. FLUTICASONE 50 MCG/ACT SUSPENSION NASAL SPRAY 2 sprays by Nasal route daily. FORMOTEROL (PERFOROMIST) 20 MCG/2ML NEBU SOLN NEBULIZER SOLUTION Take 2 mL by nebulization 2 times daily. GARGLE, RINSE MOUTH AFTER USE IPRATROPIUM-ALBUTEROL 0.5-2.5 (3) MG/3ML NEBULIZER SOLUTION Take 3 mL by nebulization every 4 hours as needed for Shortness of Breath, Wheezing, Cough or Breathing Treatment. LACTOBACILLUS RHAMNOSUS, GG, (CULTURELLE) CAPSULE CAPSULE Take 1 capsule by mouth daily. METOCLOPRAMIDE 5 MG TABLET Take 1 tablet by mouth Twice daily. NEBULIZER MISC 1 Device by Unknown route every 4 hours as needed. NUTRITIONAL SUPPLEMENTS (BOOST C) LIQUID 52 mL by Enteral route. ONDANSETRON 4 MG/5ML SOLUTION PANTOPRAZOLE (PROTONIX) [address] TABLET DR Take 1 tablet by mouth daily. PREDNISONE 10 MG TABLET Take 4 tablets by mouth for 3 days, then take 3 tablets by mouth for 3 days, then take 2 tablets by mouth for 3 days, 1 tablet for 3 days REVEFENACIN (YUPELRI) 175 MCG/3ML SOLUTION Inhale 3 mL daily. ROFLUMILAST (DALIRESP) 500 MCG TABLET Take 1 tablet by mouth daily. SERTRALINE (ZOLOFT) 25 MG TABLET Take 1 tablet by mouth daily. SPACER FOR INHALER PRESCRIPTION Use with inhaler as directed SUMATRIPTAN 50 MG TABLET Take 1 tablet by mouth Every 2 hours as needed. TESTOSTERONE 25 MG/2.5GM (1%) GEL GEL Place 2.5 g on skin daily. TRAMADOL (ULTRAM) 50 MG TABLET Take 1 tablet by mouth every 4 hours as needed. Modified Medications No medications on file Discontinued Medications No medications on file Family History: Family History Problem Relation Age of Onset No known problems Mother Heart Disease - Other Father Heart Disease - Other Brother Heart Disease - Other Other Coronary Artery Disease Other Social History: Social History Socioeconomic History Marital status: Spouse name: Not on file Number of children: Not on file Years of education: Not on file Highest education level: Not on file Occupational History Not on file Tobacco Use Smoking status: Former Types: Cigarettes Smokeless tobacco: Never Vaping Use Vaping status: Never Used Substance and Sexual Activity Alcohol use: No Drug use: No Sexual activity: Not on file Other Topics Concern Not on file Social History Narrative Not on file Social Drivers of Health Financial Resource Strain: Not on file Food Insecurity: No Food Insecurity (07/05/2024) NCSS - Food Insecurity Worried About Running Out of Food in the Last Year: No Ran Out of Food in the Last Year: No Transportation Needs: No Transportation Needs (07/05/2024) NCSS - Transportation Lack of Transportation: No Physical Activity: Not on file Stress: Not on file Social Connections: Not on file Personal Safety: Patient Unable To Answer (07/05/2024) NCSS - Interpersonal Safety Feels Physically and Emotionally Safe: Patient unable to answer Physically Hurt by Someone: Patient unable to answer Humiliated or Emotionally Abused by Someone: Patient unable to answer Housing Stability: Not At Risk (07/05/2024) NCSS - Housing/Utilities Has Housing: Yes Worried About Losing Housing: No Unable to Get Utilities: No Physical Exam: Physical Exam Vitals and nursing note reviewed. Constitutional: General: He is not in acute distress. Appearance: Normal appearance. He is not toxic-appearing. HENT: Head: Normocephalic and atraumatic. Right Ear: External ear normal. Left Ear: External ear normal. Nose: Nose normal. Mouth/Throat: Mouth: Mucous membranes are moist. Pharynx: Uvula midline. Eyes: General: No scleral icterus. Right eye: No discharge. Left eye: No discharge. Extraocular Movements: Extraocular movements intact. Conjunctiva/sclera: Conjunctivae normal. Pupils: Pupils are equal, round, and reactive to light. Neck: Thyroid: No thyromegaly. Vascular: No JVD. Cardiovascular: Rate and Rhythm: Normal rate and regular rhythm. Heart sounds: Normal heart sounds. No murmur heard. Pulmonary: Effort: Pulmonary effort is normal. No respiratory distress. Breath sounds: Normal breath sounds. Abdominal: General: Bowel sounds are normal. Palpations: Abdomen is soft. Tenderness: There is no abdominal tenderness. Musculoskeletal: General: Normal range of motion. Right hand: Normal. Normal strength. Left hand: Normal. Normal strength. Cervical back: Normal range of motion and neck supple. Right lower leg: Normal. No swelling. No edema. Left lower leg: Normal. No swelling. No edema. Skin: General: Skin is warm. Capillary Refill: Capillary refill takes less than 2 seconds. Findings: No rash. Neurological: Mental Status: He is alert and oriented to person, place, and time. Cranial Nerves: No cranial nerve deficit. Deep Tendon Reflexes: Reflexes are normal and symmetric. Vital Signs During ED Visit Patient Vitals for the past 24 hrs: BP Temp Temp src Pulse Resp SpO2 Weight 07/30/24 1000 111/74 -- -- 77 18 99 % -- 07/30/24 0900 93/59 -- -- 76 19 94 % -- 07/30/24 0755 -- -- -- -- -- 93 % -- 07/30/24 0750 -- -- -- -- -- (!) 87 % -- 07/30/24 0749 -- -- -- 82 -- (!) 87 % -- 07/30/24 0747 -- -- -- -- -- -- 78.7 kg (173 lb 9.6 oz) 07/30/24 0745 89/68 97.6 F (36.4 C) Oral -- 20 -- -- Orders/Results: Orders Placed This Encounter BLOOD CULTURE, PERIPHERAL 1ST SITE BLOOD CULTURE, PERIPHERAL 2ND SITE NOVEL CORONAVIRUS LAB 1 - NASOPHARYNGEAL XR CHEST PA AND LATERAL 2 VIEWS CBC, EDIF, PLATELET PROTIME-INR LACTATE, BLOOD LACTATE, BLOOD CHEM 7 (LYTES,BUN,CREA,GLUC) HEPATIC FUNCTION PANEL Troponin I, High sensitivity INFLUENZA A AND B, PCR Troponin I, High sensitivity ECG ECHOCARDIOGRAM Acetaminophen (TYLENOL) tablet 975 mg URINALYSIS, MACRO URINE MICROSCOPIC Results for orders placed or performed during the hospital encounter of 07/30/24 [facility] 1 - NASOPHARYNGEAL Specimen: NASOPHARYNGEAL; Fluid/Swab Result Value Ref Range SARS COV 2 RNA, QL REAL TIME RT PCR NOT DETECTED NOT DETECTED NARRATIVE -1 This test was performed using isothermal ROBERTA for the qualitative detection of SARS-CoV-2 nucleic acid. CBC, EDIF, PLATELET Result Value Ref Range WBC (WHITE BLOOD COUNT) 13.6 (H) 3.6 - 11.0 10*3/uL RBC 4.44 4.0 - 6.1 10*6/uL HEMOGLOBIN (HGB) 14.2 14.0 - 18.0 G/DL HEMATOCRIT (HCT) 41.3 (L) 42.0 - 52.0 % Mean Cell Volume 93.1 80.0 - 100.0 FL Mean Cell HGB 32.0 26.0 - 35.0 PG Mean Cell HGB Concentration 34.4 27.0 - 37.0 G/DL RBC Distribution 14.0 11.5 - 14.5 % PLATELET COUNT 130 130 - 400 10*3/uL Mean Platelet Volume 9.7 7.4 - 11.0 FL DIFFERENTIAL TYPE AUTO DIFF % NEUTROPHILS 93.1 (H) 37.0 - 75.0 % LYMPHOCYTE 1.5 (L) 20.0 - 55.0 % MONOCYTE % 5.3 0.0 - 10.0 % EOSINOPHIL % 0.0 0.0 - 11.0 % BASOPHIL % 0.1 0.0 - 2.0 % Absolute Neutrophil Count 12.6 (H) 1.4 - 6.5 10*3/uL LYMPHOCYTES, ABSOLUTE 0.2 (L) 1.2 - 3.4 10*3/uL MONOCYTES, ABSOLUTE 0.7 0.0 - 0.7 10*3/uL ABSOLUTE EOSINOPHIL COUNT 0.0 0.0 - 0.7 10*3/uL ABSOLUTE BASOPHIL COUNT 0.0 0.0 - 0.2 10*3/uL PROTIME-INR Result Value Ref Range PT 16.0 (H) 11.8 - 14.4 SEC INR 1.26 (H) 0.85 - 1.10 LACTATE, BLOOD Result Value Ref Range LACTATE 2.8 (HH) 0.7 - 2.0 mmol/L LACTATE, BLOOD Result Value Ref Range LACTATE 1.5 0.7 - 2.0 mmol/L CHEM 7 (LYTES,BUN,CREA,GLUC) Result Value Ref Range Glucose 157 (H) 70 - 100 MG/DL BUN 31 (H) 7 - 20 mg/dL CREATININE SERUM 0.90 0.70 - 1.20 mg/dL SODIUM 145 137 - 145 MMOL/L Potassium 3.8 3.5 - 5.1 MMOL/L CHLORIDE 101 98 - 107 MMOL/L CARBON DIOXIDE (CO2) 34 (H) 22 - 30 MMOL/L ESTIMATED GFR 88 ml/min/1.73sq.m GFR COMMENT Average GFR for 70+ years old = 75. HEPATIC FUNCTION PANEL Result Value Ref Range Albumin 4.4 2.9 - 5.3 G/DL BILIRUBIN, TOTAL 1.1 0.2 - 1.3 mg/dL ALKALINE PHOSPHATASE 108 38 - 126 U/L AST 46 17 - 59 U/L BILIRUBIN, DIRECT 0.0 0.0 - 0.4 MG/DL PROTEIN, TOTAL 7.6 6.3 - 8.2 g/dL ALT 35 <50 U/L TROPONIN I, HIGH SENSITIVITY Result Value Ref Range TROPONIN I, HIGH SENSITIVITY 120 (HH) 0 - 20 pg/mL INFLUENZA A AND B, PCR Result Value Ref Range INFLUENZA A NEGATIVE NEGATIVE INFLUENZA B NEGATIVE NEGATIVE TROPONIN I, HIGH SENSITIVITY Result Value Ref Range TROPONIN I, HIGH SENSITIVITY 113 (HH) 0 - 20 pg/mL URINALYSIS, MACRO Result Value Ref Range Color, Urine YELLOW YELLOW Appearance, Urine CLEAR CLEAR Specific Plato, Urine 1.015 1.010 - 1.025 PH URINE 7.0 5.0 - 7.0 Urine Protein 30 (A) NEGATIVE mg/dl Glucose, Urine NEGATIVE NEGATIVE mg/dl Ketones, Urine NEGATIVE NEGATIVE mg/dl BILIRUBIN, URINE NEGATIVE NEGATIVE BLOOD, URINE DIPSTICK NEGATIVE NEGATIVE Nitrites, Urine NEGATIVE NEGATIVE Urobilinogen, Urine 0.2 0.2 - 1.0 E.U./dL Leukocyte esterase, Urine NEGATIVE NEGATIVE URINE MICROSCOPIC Result Value Ref Range WBC, Urine 1 TO 5 NEGATIVE /HPF RBC, Urine NEGATIVE NEGATIVE /HPF Epithelial Cells UA NONE /HPF Mucus NEGATIVE NEGATIVE Bacteria, Urine TRACE (A) NEGATIVE CRYSTALS, URINE NONE NONE CASTS, URINE NONE NONE /LPF COMMENT, URINE CULTURE CRITERIA NOT MET, NO CULTURE PERFORMED. Radiographic Imaging XR CHEST PA AND LATERAL 2 VIEWS Final Result IMPRESSION: There is no acute cardiopulmonary process. ECHOCARDIOGRAM (Results Pending) Procedures: Procedures Moderate Sedation Procedure: No Medications Ordered/Given During ED Visit Medications Acetaminophen (TYLENOL) tablet 975 mg (has no administration in time range) EKG interpreted by me no comparison available shows normal sinus rhythm rate of [address] interval 152 QTC 389. Nonspecific T changes but no acute ST segment or elevated changes or findings. Medical Decision Making Elevated troponin without any acute ST segment changes on EKG. Concerning that this nausea he was having last night may have been cardiac related. X-rays unremarkable. He is little dry was little hypotensive when he 1st came in but after a L of fluid he is feeling much better. I will admit him for elevated troponins to the hospitalist. Medical Decision Making Amount and/or Complexity of Data Reviewed Labs: ordered. Radiology: ordered. ECG/medicine tests: ordered. Risk OTC drugs. Decision regarding hospitalization. Clinical Impression: 1. Nausea 2. NSTEMI (non-ST elevated myocardial infarction) No follow-ups on file. New Prescriptions No medications on file Discontinued Medications No medications on file An After Visit Summary was printed and given to the patient with above information. Stevenson Andrews DO 07/30/24 1111 [facility] 07-23-2024 Evaluation + Plan note Associated Problem(s): Multiple lung nodules on CT - Surveillance Cts, imaging as per Onc Dr. Brandon [facility]. - 02/18/23 CT Chest w/ c [facility] IMPRESSION: 1. Extensive branching [id number]-type micronodules are present in the right lower lobe and right middle lobe, and to a lesser extent in the left lower lobe. This is stable to slightly progressed from the CT performed on 02/05/2023, and compatible with an infectious or inflammatory bronchiolitis. 2. The newly noted 8mm right lower lobe nodule seen on 02/05/2023 has slightly decreased in size to 6 mm on today's study, and is thus presumably related to the infectious/inflammatory bronchiolitis. The newly noted cluster of 4 to 5 mm nodules seen in the right lower lobe on 02/05/2023 is unchanged on today's examination and is likely infectious or inflammatory in etiology as well. A follow-up chest CT is recommended following treatment for infection, to confirm resolution. 3. Additional incidental findings are detailed above. - 03/21/[address] [facility] [address] Brandon: ASSESSMENT / PLAN: 1. 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 He is due to see Dr. Holder. 2. Weight loss. Found to have pharyngoesophageal dysphagia. He has been referred for a PEG. He saw Dr. Payan and they decided to defer on the peg. He reports that his appetite has improved. He is aware the possible CT findings could represent aspiration. Patient was seen by speech therapy on 03/04/2023. No safe diet was recommended the patient and the understand risks of continued feeding. Will continue to follow. 3. Lung cancer screening/Nodule. He quit smoking in 2008 but prior to that had a 3 ppd for [address] scans performed while hospitalized in February. He again was found to have a trach in the right lower lobe. Overall, the lung was suspected to represent pneumonia. I will repeat CAT scans in 3 months to ensure clearing. 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 5. Right Kidney.had MRI dated March 12, 2023. This showed multiple bilateral renal cysts. Predominant Bosniak 1 and Bosniak 2. Some of these lesions are too Femara to fully characterize but there are no overtly suspicious renal masses. - 07/18/23 CT chest w/ c [facility] IMPRESSION: 1. Since 06/14/2023, mild increase in multifocal tree-in-bud opacities, most pronounced within the right lower lobe, and to a lesser degree within the right middle lobe and left lower lobe, compatible with infection/inflammation. The distribution is consistent with aspiration. 2. Persistent distal bronchiolar mucous plugging within the right lower lobe. Dependent secretions are present within the right mainstem bronchus and bronchus intermedius. 3. Unchanged mildly enlarged mediastinal lymph nodes. - 07/23/[address] [facility] [address] Brandon Reviewed: Since her last visit, patient reports that he has been seen by Dr. Rivas that time to discuss possible vocal cord fillers. Patient reports he is not interested. In addition patient has been seen by speech therapy. This has also been stabilized. He continues to use his feeding tube. -- ASSESSMENT / PLAN: 1. 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 He is due to see Dr. Holder. 2. Weight loss. Patient is status post PEG. Patient is been evaluated by nutrition. He is receiving additional supplementation. He is having more trouble aspiration. 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 Patient has been evaluated by ENT. Patient was seen by Dr. Rivas. They are talking about vocal cord filler. No clear evidence of malignancy. Patient return to see me in 6 months. 3. Increasing nodular densities right lower lobe. This would likely represent aspiration however given the severity we will repeat CT scans in 6 months. 4. Pleural-based density. Previously mentioned pleural-based lesion is no longer seen or mentioned on this CT. I will ask for direct comparison. 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 6. Right Kidney.had MRI dated March 12, 2023. This showed multiple bilateral renal cysts. Predominant Bosniak 1 and Bosniak 2. - 12/22/23 CTPE ([facility] admission - [place]) Impression 1. Exam is positive for pulmonary embolus with filling defect in a right lower lobe posterior segmental pulmonary artery. There is reversal of the normal interventricular septal bowing suggestive of acute right heart strain. 2. Rounded consolidative opacity in the posterior right upper lobe and small cavitary nodule in the superior segment of the right lower lobe are new when compared to 06/14/2023. These are favored to relate to acute infectious/inflammatory nodules/pneumonia with additional patchy areas of infectious/inflammatory infiltrate in the left lower lobe. Short-term follow-up chest CT in 3 months is recommended to exclude developing neoplasm. 3. Right lower lobe bronchiectasis with bronchial wall thickening and areas of mucous plugging consistent with acute bronchitis. Airway secretions are present in the right mainstem bronchus. --- ffup CT 3 mos 03/23/24 04/08/2024 CT Chest w/o contrast reviewed: Previous RLL infiltrates, atelectasis on CT 06/14/23 - Improved, Resolved. COPD w/ ULP Emphysema, RLL mild bronchiectatic changes - Similar to prior. New, small lung nodules, largest LLL 8.7 mm - probably mild inflammation, possibly infection. Otherwise, No new suspicious lung nodules or enlarged lymph nodes. -- take course of antibiotic Cefdinir and Prednisone; ordered ([facility]) --- close ffup CT 3 mos. 07/06/24 07/04/24 CT CHEST WITHOUT CONTRAST IMPRESSION: 1. Multifocal infiltrates bilaterally suggestive of pneumonia. Findings within left lung could represent neoplasm, however, there is been notable change since 04/01/2024 with some previously seen lesions no longer present, and multiple new lesions suggesting this represents changing pattern of pneumonia. Consider follow-up CT chest in 2 months to document clearing. 2. Chronic mild emphysematous changes and bronchiectasis. --- ffup 2-3 mos 09/2024 - prob Postinflammatory s/p PNA; but hx of smoking and hx of Tongue cancer - ffup CT for stability - further evaluation, management pending results, clinical course. - Diagnostic (malignant vs benign) and management options discussed at length w/ pt; questions answered; and pt stated understanding and agreement. [facility] 07-23-2024 Miscellaneous Notes Associated Problem(s): Multiple lung nodules on CT - Surveillance Cts, imaging as per Onc Dr. Brandon [facility]. - 02/18/23 CT Chest w/ c [facility] IMPRESSION: 1. Extensive branching dmdc-xk-[id number]-type micronodules are present in the right lower lobe and right middle lobe, and to a lesser extent in the left lower lobe. This is stable to slightly progressed from the CT performed on 02/05/2023, and compatible with an infectious or inflammatory bronchiolitis. 2. The newly noted 8mm right lower lobe nodule seen on 02/05/2023 has slightly decreased in size to 6 mm on today's study, and is thus presumably related to the infectious/inflammatory bronchiolitis. The newly noted cluster of 4 to 5 mm nodules seen in the right lower lobe on 02/05/2023 is unchanged on today's examination and is likely infectious or inflammatory in etiology as well. A follow-up chest CT is recommended following treatment for infection, to confirm resolution. 3. Additional incidental findings are detailed above. - 03/21/[address] [facility] [address] Brandon: ASSESSMENT / PLAN: 1. 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 He is due to see Dr. Holder. 2. Weight loss. Found to have pharyngoesophageal dysphagia. He has been referred for a PEG. He saw Dr. Payan and they decided to defer on the peg. He reports that his appetite has improved. He is aware the possible CT findings could represent aspiration. Patient was seen by speech therapy on 03/04/2023. No safe diet was recommended the patient and the understand risks of continued feeding. Will continue to follow. 3. Lung cancer screening/Nodule. He quit smoking in 2008 but prior to that had a 3 ppd for [address] scans performed while hospitalized in February. He again was found to have a trach in the right lower lobe. Overall, the lung was suspected to represent pneumonia. I will repeat CAT scans in 3 months to ensure clearing. 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 5. Right Kidney.had MRI dated March 12, 2023. This showed multiple bilateral renal cysts. Predominant Bosniak 1 and Bosniak 2. Some of these lesions are too Femara to fully characterize but there are no overtly suspicious renal masses. - 07/18/23 CT chest w/ c [facility] IMPRESSION: 1. Since 06/14/2023, mild increase in multifocal tree-in-bud opacities, most pronounced within the right lower lobe, and to a lesser degree within the right middle lobe and left lower lobe, compatible with infection/inflammation. The distribution is consistent with aspiration. 2. Persistent distal bronchiolar mucous plugging within the right lower lobe. Dependent secretions are present within the right mainstem bronchus and bronchus intermedius. 3. Unchanged mildly enlarged mediastinal lymph nodes. - 07/23/[address] [facility] [address] Brandon Reviewed: Since her last visit, patient reports that he has been seen by Dr. Rivas that time to discuss possible vocal cord fillers. Patient reports he is not interested. In addition patient has been seen by speech therapy. This has also been stabilized. He continues to use his feeding tube. -- ASSESSMENT / PLAN: 1. 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 He is due to see Dr. Holder. 2. Weight loss. Patient is status post PEG. Patient is been evaluated by nutrition. He is receiving additional supplementation. He is having more trouble aspiration. 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 Patient has been evaluated by ENT. Patient was seen by Dr. Rivas. They are talking about vocal cord filler. No clear evidence of malignancy. Patient return to see me in 6 months. 3. Increasing nodular densities right lower lobe. This would likely represent aspiration however given the severity we will repeat CT scans in 6 months. 4. Pleural-based density. Previously mentioned pleural-based lesion is no longer seen or mentioned on this CT. I will ask for direct comparison. 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 6. Right Kidney.had MRI dated March 12, 2023. This showed multiple bilateral renal cysts. Predominant Bosniak 1 and Bosniak 2. - 12/22/23 CTPE ([facility] admission - [place]) Impression 1. Exam is positive for pulmonary embolus with filling defect in a right lower lobe posterior segmental pulmonary artery. There is reversal of the normal interventricular septal bowing suggestive of acute right heart strain. 2. Rounded consolidative opacity in the posterior right upper lobe and small cavitary nodule in the superior segment of the right lower lobe are new when compared to 06/14/2023. These are favored to relate to acute infectious/inflammatory nodules/pneumonia with additional patchy areas of infectious/inflammatory infiltrate in the left lower lobe. Short-term follow-up chest CT in 3 months is recommended to exclude developing neoplasm. 3. Right lower lobe bronchiectasis with bronchial wall thickening and areas of mucous plugging consistent with acute bronchitis. Airway secretions are present in the right mainstem bronchus. --- ffup CT 3 mos 03/23/24 04/08/2024 CT Chest w/o contrast reviewed: Previous RLL infiltrates, atelectasis on CT 06/14/23 - Improved, Resolved. COPD w/ ULP Emphysema, RLL mild bronchiectatic changes - Similar to prior. New, small lung nodules, largest LLL 8.7 mm - probably mild inflammation, possibly infection. Otherwise, No new suspicious lung nodules or enlarged lymph nodes. -- take course of antibiotic Cefdinir and Prednisone; ordered ([facility]) --- close ffup CT 3 mos. 07/06/24 07/04/24 CT CHEST WITHOUT CONTRAST IMPRESSION: 1. Multifocal infiltrates bilaterally suggestive of pneumonia. Findings within left lung could represent neoplasm, however, there is been notable change since 04/01/2024 with some previously seen lesions no longer present, and multiple new lesions suggesting this represents changing pattern of pneumonia. Consider follow-up CT chest in 2 months to document clearing. 2. Chronic mild emphysematous changes and bronchiectasis. --- ffup 2-3 mos 09/2024 - prob Postinflammatory s/p PNA; but hx of smoking and hx of Tongue cancer - ffup CT for stability - further evaluation, management pending results, clinical course. - Diagnostic (malignant vs benign) and management options discussed at length w/ pt; questions answered; and pt stated understanding and agreement. Associated Problem(s): COPD (chronic obstructive pulmonary disease) - admitted [facility] 05/24/0707/26/2023 Discharge summary reviewed: PNA, trace hemoptysis - emp Levaquin, Prednisone. Hypoxia - O2 weaned off. AECOPD, HTN, BPH, GERD, Severe PCM malnutrion, s/p PEG, HLD - fmr Smoker; hx of COPD, as per records; was on Albuterol nebs prev. - may have Asthma COPD overlap; PFT 08/2023. - 08/22/2023 PFT: - Spirometry - MODERATELY SEVERE OBSTRUCTION, FEV1/FVC 58%, FEV1 2.03L 58% predicted, FVC 3.53L 74% predicted; w/ SMALL AIRWAY flow limitation. - Significant response to bronchodilator: LARGE response during this testing, as may be seen w/ Asthma, RAD (FEV1 increased 15%). - Lung Volume - HYPERINFLATION, INCREASED TLC 12.03L 167% predicted, RV 8.78L 314% predicted - w/ SEVERE AIR TRAPPING. - Diffusing Capacity: MILDLY REDUCED DLCO 66% predicted, DL/VA 107% (which normalizes when adjusted for lung volume, suggesting probably extraparenchymal cause; e.g., body habitus; may also have emphysema). - Flow Volume Loops - Obstructive pattern; No overt upper airway obstruction pattern. - Consider LAMA/LABA or try triple tx Trelegy, Breztri, or other inhaler regimen, as indic; if feasible; albuterol as needed; use spacer - 12/31/23 cont Albuterol prn, nebs prn; maint inhalers/nebs, if needed - 07/23/24 cont Albuterol, nebs prn - consider Daliresp subseq as indic., as tolerated; if feasible - 04/22/24 cont duonebs; budesonide+formoterol nebs alternatively - patient benefits from nebulizer treatments - Inhaler technique teaching done/reviewed prev.; rinse mouth after inhaler use, especially steroid inhalers - Smoking cessation reinforced: quit - advised OTC Calcium+Vit D, lifestyle recs for osteoporosis prevention, especially if on frequent or long-term systemic steroids (osteoporosis screening/management as per PCP prn, as indic) - monitor PFT prn, as indicated - monitor imaging prn, Chest radiograph as needed (CT Chest as indicated) - Pulmonary rehab program, if feasible; rec to stay active (referred prev.) - Influenza, pneumococcal, COVID19, pulmonary vaccines recommended, updated Associated Problem(s): Centrilobular emphysema Mild ULP; smoking hx; See COPD txs Associated Problem(s): Aspiration pneumonia of both lungs - admitted 06/13- DC Summary Reviewed: Aspn PNA bilat. - IV atb, steroids; O2 weaned off; continuous tube feeds at home was set-up. DC w/ emp Levaquin, Prednisone taper. Details as noted. CT Chest 06/14/2023 IMPRESSION: 1. Increasing nodular densities right lower lobe most likely inflammatory, correlate for pneumonitis/pneumonia. Prominent gas in the esophagus suggesting reflux, question aspiration pneumonia. 2. Enlarging pleural-based density containing small amounts of gas adjacent to the inflammatory density in the right lower lobe noted above. Seen in the posterior inferior medial right chest centered at the T10-T11 level. Question whether this a chronic inflammatory process within the lung or adjacent pleura. There is no adjacent bony erosion or increasing pleural effusion. Has been present previously of variable size, large larger on 05/09/2023 and decreased on 05/24/2023. - 07/18/23 CT chest w/ c [facility] IMPRESSION: 1. Since 06/14/2023, mild increase in multifocal tree-in-bud opacities, most pronounced within the right lower lobe, and to a lesser degree within the right middle lobe and left lower lobe, compatible with infection/inflammation. The distribution is consistent with aspiration. 2. Persistent distal bronchiolar mucous plugging within the right lower lobe. Dependent secretions are present within the right mainstem bronchus and bronchus intermedius. 3. Unchanged mildly enlarged mediastinal lymph nodes. - 12/22/23 CTPE ([facility] admission - [place]) Impression 1. Exam is positive for pulmonary embolus with filling defect in a right lower lobe posterior segmental pulmonary artery. There is reversal of the normal interventricular septal bowing suggestive of acute right heart strain. 2. Rounded consolidative opacity in the posterior right upper lobe and small cavitary nodule in the superior segment of the right lower lobe are new when compared to 06/14/2023. These are favored to relate to acute infectious/inflammatory nodules/pneumonia with additional patchy areas of infectious/inflammatory infiltrate in the left lower lobe. Short-term follow-up chest CT in 3 months is recommended to exclude developing neoplasm. 3. Right lower lobe bronchiectasis with bronchial wall thickening and areas of mucous plugging consistent with acute bronchitis. Airway secretions are present in the right mainstem bronchus. --- ffup CT 3 mos 03/23/24 04/08/2024 CT Chest w/o contrast reviewed: Previous RLL infiltrates, atelectasis on CT 06/14/23 - Improved, Resolved. COPD w/ ULP Emphysema, RLL mild bronchiectatic changes - Similar to prior. New, small lung nodules, largest LLL 8.7 mm - probably mild inflammation, possibly infection. Otherwise, No new suspicious lung nodules or enlarged lymph nodes. -- take course of antibiotic Cefdinir and Prednisone; ordered ([facility]) --- close ffup CT 3 mos. 07/06/24 07/04/24 CT CHEST WITHOUT CONTRAST (hosp admission PNA) IMPRESSION: 1. Multifocal infiltrates bilaterally suggestive of pneumonia. Findings within left lung could represent neoplasm, however, there is been notable change since 04/01/2024 with some previously seen lesions no longer present, and multiple new lesions suggesting this represents changing pattern of pneumonia. Consider follow-up CT chest in 2 months to document clearing. 2. Chronic mild emphysematous changes and bronchiectasis. --- ffup CT 2-3 mos for resolution, 09/2024 - clinically improved; s/p emp atb - aspn precautions; on tube feeds - ffup CT for resolution - further evaluation, management pending results, clinical course. documented in this encounter [facility] 07-23-2024 Evaluation + Plan note Associated Problem(s): COPD (chronic obstructive pulmonary disease) - admitted [facility] 05/24/0707/26/2023 Discharge summary reviewed: PNA, trace hemoptysis - emp Levaquin, Prednisone. Hypoxia - O2 weaned off. AECOPD, HTN, BPH, GERD, Severe PCM malnutrion, s/p PEG, HLD - fmr Smoker; hx of COPD, as per records; was on Albuterol nebs prev. - may have Asthma COPD overlap; PFT 08/2023. - 08/22/2023 PFT: - Spirometry - MODERATELY SEVERE OBSTRUCTION, FEV1/FVC 58%, FEV1 2.03L 58% predicted, FVC 3.53L 74% predicted; w/ SMALL AIRWAY flow limitation. - Significant response to bronchodilator: LARGE response during this testing, as may be seen w/ Asthma, RAD (FEV1 increased 15%). - Lung Volume - HYPERINFLATION, INCREASED TLC 12.03L 167% predicted, RV 8.78L 314% predicted - w/ SEVERE AIR TRAPPING. - Diffusing Capacity: MILDLY REDUCED DLCO 66% predicted, DL/VA 107% (which normalizes when adjusted for lung volume, suggesting probably extraparenchymal cause; e.g., body habitus; may also have emphysema). - Flow Volume Loops - Obstructive pattern; No overt upper airway obstruction pattern. - Consider LAMA/LABA or try triple tx Trelegy, Breztri, or other inhaler regimen, as indic; if feasible; albuterol as needed; use spacer - 12/31/23 cont Albuterol prn, nebs prn; maint inhalers/nebs, if needed - 07/23/24 cont Albuterol, nebs prn - consider Daliresp subseq as indic., as tolerated; if feasible - 04/22/24 cont duonebs; budesonide+formoterol nebs alternatively - patient benefits from nebulizer treatments - Inhaler technique teaching done/reviewed prev.; rinse mouth after inhaler use, especially steroid inhalers - Smoking cessation reinforced: quit - advised OTC Calcium+Vit D, lifestyle recs for osteoporosis prevention, especially if on frequent or long-term systemic steroids (osteoporosis screening/management as per PCP prn, as indic) - monitor PFT prn, as indicated - monitor imaging prn, Chest radiograph as needed (CT Chest as indicated) - Pulmonary rehab program, if feasible; rec to stay active (referred prev.) - Influenza, pneumococcal, COVID19, pulmonary vaccines recommended, updated [facility] 07-23-2024 Evaluation + Plan note Associated Problem(s): Centrilobular emphysema Mild ULP; smoking hx; See COPD txs [facility] 07-23-2024 Evaluation + Plan note Associated Problem(s): Aspiration pneumonia of both lungs - admitted 06/13- DC Summary Reviewed: Aspn PNA bilat. - IV atb, steroids; O2 weaned off; continuous tube feeds at home was set-up. DC w/ emp Levaquin, Prednisone taper. Details as noted. CT Chest 06/14/2023 IMPRESSION: 1. Increasing nodular densities right lower lobe most likely inflammatory, correlate for pneumonitis/pneumonia. Prominent gas in the esophagus suggesting reflux, question aspiration pneumonia. 2. Enlarging pleural-based density containing small amounts of gas adjacent to the inflammatory density in the right lower lobe noted above. Seen in the posterior inferior medial right chest centered at the T10-T11 level. Question whether this a chronic inflammatory process within the lung or adjacent pleura. There is no adjacent bony erosion or increasing pleural effusion. Has been present previously of variable size, large larger on 05/09/2023 and decreased on 05/24/2023. - 07/18/23 CT chest w/ c [facility] IMPRESSION: 1. Since 06/14/2023, mild increase in multifocal tree-in-bud opacities, most pronounced within the right lower lobe, and to a lesser degree within the right middle lobe and left lower lobe, compatible with infection/inflammation. The distribution is consistent with aspiration. 2. Persistent distal bronchiolar mucous plugging within the right lower lobe. Dependent secretions are present within the right mainstem bronchus and bronchus intermedius. 3. Unchanged mildly enlarged mediastinal lymph nodes. - 12/22/23 CTPE ([facility] admission - [place]) Impression 1. Exam is positive for pulmonary embolus with filling defect in a right lower lobe posterior segmental pulmonary artery. There is reversal of the normal interventricular septal bowing suggestive of acute right heart strain. 2. Rounded consolidative opacity in the posterior right upper lobe and small cavitary nodule in the superior segment of the right lower lobe are new when compared to 06/14/2023. These are favored to relate to acute infectious/inflammatory nodules/pneumonia with additional patchy areas of infectious/inflammatory infiltrate in the left lower lobe. Short-term follow-up chest CT in 3 months is recommended to exclude developing neoplasm. 3. Right lower lobe bronchiectasis with bronchial wall thickening and areas of mucous plugging consistent with acute bronchitis. Airway secretions are present in the right mainstem bronchus. --- ffup CT 3 mos 03/23/24 04/08/2024 CT Chest w/o contrast reviewed: Previous RLL infiltrates, atelectasis on CT 06/14/23 - Improved, Resolved. COPD w/ ULP Emphysema, RLL mild bronchiectatic changes - Similar to prior. New, small lung nodules, largest LLL 8.7 mm - probably mild inflammation, possibly infection. Otherwise, No new suspicious lung nodules or enlarged lymph nodes. -- take course of antibiotic Cefdinir and Prednisone; [facility] ([facility]) --- close ffup CT 3 mos. 07/06/24 07/04/24 CT CHEST WITHOUT CONTRAST (hosp admission PNA) IMPRESSION: 1. Multifocal infiltrates bilaterally suggestive of pneumonia. Findings within left lung could represent neoplasm, however, there is been notable change since 04/01/2024 with some previously seen lesions no longer present, and multiple new lesions suggesting this represents changing pattern of pneumonia. Consider follow-up CT chest in 2 months to document clearing. 2. Chronic mild emphysematous changes and bronchiectasis. --- ffup CT 2-3 mos for resolution, 09/2024 - clinically improved; s/p emp atb - aspn precautions; on tube feeds - ffup CT for resolution - further evaluation, management pending results, clinical course. [facility] 07-23-2024 History of Present illness Narrative Neck circumference - Currently smoking or Hx of smoking - former Oxygen use __yes (3L NOC)____ patient is benefiting from oxygen use. Do you have a CPAP- no DME company- [facility] Most recent CT- 07/04/24 Most recent PFT- 08/21/24 Symptoms include:coughing, Increase in shortness of breath- no Dyspnea upon exertion-no Dyspnea at rest- no Cough- productive- Have you had the Covid 19 vaccine-11/24/23 Do you need a Medication refill? no Pt presents for review of CT Chest Maintenance medication - roflumilast (Daliresp) 500 MCG tablet , Flonase Maintenance inhaler- Rescue medication-Revefenacin (Yupelri) 175 MCG/3ML Solution, formoterol (feels like throat is constricted)((Perforomist) 20 MCG/2ML Nebu Soln nebulizer solution (feels like throat is constricted) budesonide 0.5 MG/2ML nebulizer (feels like throat is constricted)suspension, Ipratropium-albuterol 0.5-2.5 (3) MG/3ML nebulizer solution makes face numb on right side Patient last seen in office on 04/22/24 and is present for a 3 month follow up to review results of CT Chest (07/04/24) Patient is a 74 y.o. male who came to be evaluated and managed for COPD, FR Hypoxia, Pneumonia hosp 05/2023 Chronic Obstructive Pulmonary Disease . ICD-10-CM 1. Aspiration pneumonia of both lower lobes, unspecified aspiration pneumonia type J69.0 2. Multiple lung nodules on CT R91.8 CT CHEST WITHOUT CONTRAST 3. Malignant neoplasm of base of tongue C01 4. Chronic respiratory failure with hypoxia, on home oxygen therapy J96.11 OVERNIGHT PULSE OXIMETRY TEST Z99.81 5. Centrilobular emphysema J43.2 OVERNIGHT PULSE OXIMETRY TEST 6. Chronic obstructive pulmonary disease, unspecified COPD type J44.9 OVERNIGHT PULSE OXIMETRY TEST Problem List Items Addressed This Visit Multiple lung nodules on CT - Surveillance Cts, imaging as per Onc Dr. Brandon [facility]. - 02/18/23 CT Chest w/ c [facility] IMPRESSION: 1. Extensive branching xxfi-sz-[id number]-type micronodules are present in the right lower lobe and right middle lobe, and to a lesser extent in the left lower lobe. This is stable to slightly progressed from the CT performed on 02/05/2023, and compatible with an infectious or inflammatory bronchiolitis. 2. The newly noted 8mm right lower lobe nodule seen on 02/05/2023 has slightly decreased in size to 6 mm on today's study, and is thus presumably related to the infectious/inflammatory bronchiolitis. The newly noted cluster of 4 to 5 mm nodules seen in the right lower lobe on 02/05/2023 is unchanged on today's examination and is likely infectious or inflammatory in etiology as well. A follow-up chest CT is recommended following treatment for infection, to confirm resolution. 3. Additional incidental findings are detailed above. - 03/21/[address] [facility] [address] Brandon: ASSESSMENT / PLAN: 1. 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 He is due to see Dr. Holder. 2. Weight loss. Found to have pharyngoesophageal dysphagia. He has been referred for a PEG. He saw Dr. Payan and they decided to defer on the peg. He reports that his appetite has improved. He is aware the possible CT findings could represent aspiration. Patient was seen by speech therapy on 03/04/2023. No safe diet was recommended the patient and the understand risks of continued feeding. Will continue to follow. 3. Lung cancer screening/Nodule. He quit smoking in 2008 but prior to that had a 3 ppd for [address] scans performed while hospitalized in February. He again was found to have a trach in the right lower lobe. Overall, the lung was suspected to represent pneumonia. I will repeat CAT scans in 3 months to ensure clearing. 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 5. Right Kidney.had MRI dated March 12, 2023. This showed multiple bilateral renal cysts. Predominant Bosniak 1 and Bosniak 2. Some of these lesions are too Femara to fully characterize but there are no overtly suspicious renal masses. - 07/18/23 CT chest w/ c [facility] IMPRESSION: 1. Since 06/14/2023, mild increase in multifocal tree-in-bud opacities, most pronounced within the right lower lobe, and to a lesser degree within the right middle lobe and left lower lobe, compatible with infection/inflammation. The distribution is consistent with aspiration. 2. Persistent distal bronchiolar mucous plugging within the right lower lobe. Dependent secretions are present within the right mainstem bronchus and bronchus intermedius. 3. Unchanged mildly enlarged mediastinal lymph nodes. - 07/23/[address] [facility] [address] Brandon Reviewed: Since her last visit, patient reports that he has been seen by Dr. Rivas that time to discuss possible vocal cord fillers. Patient reports he is not interested. In addition patient has been seen by speech therapy. This has also been stabilized. He continues to use his feeding tube. -- ASSESSMENT / PLAN: 1. 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 He is due to see Dr. Holder. 2. Weight loss. Patient is status post PEG. Patient is been evaluated by nutrition. He is receiving additional supplementation. He is having more trouble aspiration. 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 Patient has been evaluated by ENT. Patient was seen by Dr. Rivas. They are talking about vocal cord filler. No clear evidence of malignancy. Patient return to see me in 6 months. 3. Increasing nodular densities right lower lobe. This would likely represent aspiration however given the severity we will repeat CT scans in 6 months. 4. Pleural-based density. Previously mentioned pleural-based lesion is no longer seen or mentioned on this CT. I will ask for direct comparison. 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 6. Right Kidney.had MRI dated March 12, 2023. This showed multiple bilateral renal cysts. Predominant Bosniak 1 and Bosniak 2. - 12/22/23 CTPE ([facility] admission - PE) Impression 1. Exam is positive for pulmonary embolus with filling defect in a right lower lobe posterior segmental pulmonary artery. There is reversal of the normal interventricular septal bowing suggestive of acute right heart strain. 2. Rounded consolidative opacity in the posterior right upper lobe and small cavitary nodule in the superior segment of the right lower lobe are new when compared to 06/14/2023. These are favored to relate to acute infectious/inflammatory nodules/pneumonia with additional patchy areas of infectious/inflammatory infiltrate in the left lower lobe. Short-term follow-up chest CT in 3 months is recommended to exclude developing neoplasm. 3. Right lower lobe bronchiectasis with bronchial wall thickening and areas of mucous plugging consistent with acute bronchitis. Airway secretions are present in the right mainstem bronchus. --- ffup CT 3 mos 03/23/24 04/08/2024 CT Chest w/o contrast reviewed: Previous RLL infiltrates, atelectasis on CT 06/14/23 - Improved, Resolved. COPD w/ ULP Emphysema, RLL mild bronchiectatic changes - Similar to prior. New, small lung nodules, largest LLL 8.7 mm - probably mild inflammation, possibly infection. Otherwise, No new suspicious lung nodules or enlarged lymph nodes. -- take course of antibiotic Cefdinir and Prednisone; ordered ([facility]) --- close ffup CT 3 mos. 07/06/24 07/04/24 CT CHEST WITHOUT CONTRAST IMPRESSION: 1. Multifocal infiltrates bilaterally suggestive of pneumonia. Findings within left lung could represent neoplasm, however, there is been notable change since 04/01/2024 with some previously seen lesions no longer present, and multiple new lesions suggesting this represents changing pattern of pneumonia. Consider follow-up CT chest in 2 months to document clearing. 2. Chronic mild emphysematous changes and bronchiectasis. --- ffup 2-3 mos 09/2024 - prob Postinflammatory s/p PNA; but hx of smoking and hx of Tongue cancer - ffup CT for stability - further evaluation, management pending results, clinical course. - Diagnostic (malignant vs benign) and management options discussed at length w/ pt; questions answered; and pt stated understanding and agreement. Relevant Orders CT CHEST WITHOUT CONTRAST Aspiration pneumonia of both lungs - Primary - admitted 06/13- DC Summary Reviewed: Aspn PNA bilat. - IV atb, steroids; O2 weaned off; continuous tube feeds at home was set-up. DC w/ emp Levaquin, Prednisone taper. Details as noted. CT Chest 06/14/2023 IMPRESSION: 1. Increasing nodular densities right lower lobe most likely inflammatory, correlate for pneumonitis/pneumonia. Prominent gas in the esophagus suggesting reflux, question aspiration pneumonia. 2. Enlarging pleural-based density containing small amounts of gas adjacent to the inflammatory density in the right lower lobe noted above. Seen in the posterior inferior medial right chest centered at the T10-T11 level. Question whether this a chronic inflammatory process within the lung or adjacent pleura. There is no adjacent bony erosion or increasing pleural effusion. Has been present previously of variable size, large larger on 05/09/2023 and decreased on 05/24/2023. - 07/18/23 CT chest w/ c [facility] IMPRESSION: 1. Since 06/14/2023, mild increase in multifocal tree-in-bud opacities, most pronounced within the right lower lobe, and to a lesser degree within the right middle lobe and left lower lobe, compatible with infection/inflammation. The distribution is consistent with aspiration. 2. Persistent distal bronchiolar mucous plugging within the right lower lobe. Dependent secretions are present within the right mainstem bronchus and bronchus intermedius. 3. Unchanged mildly enlarged mediastinal lymph nodes. - 12/22/23 CTPE ([facility] admission - PE) Impression 1. Exam is positive for pulmonary embolus with filling defect in a right lower lobe posterior segmental pulmonary artery. There is reversal of the normal interventricular septal bowing suggestive of acute right heart strain. 2. Rounded consolidative opacity in the posterior right upper lobe and small cavitary nodule in the superior segment of the right lower lobe are new when compared to 06/14/2023. These are favored to relate to acute infectious/inflammatory nodules/pneumonia with additional patchy areas of infectious/inflammatory infiltrate in the left lower lobe. Short-term follow-up chest CT in 3 months is recommended to exclude developing neoplasm. 3. Right lower lobe bronchiectasis with bronchial wall thickening and areas of mucous plugging consistent with acute bronchitis. Airway secretions are present in the right mainstem bronchus. --- ffup CT 3 mos 03/23/24 04/08/2024 CT Chest w/o contrast reviewed: Previous RLL infiltrates, atelectasis on CT 06/14/23 - Improved, Resolved. COPD w/ ULP Emphysema, RLL mild bronchiectatic changes - Similar to prior. New, small lung nodules, largest LLL 8.7 mm - probably mild inflammation, possibly infection. Otherwise, No new suspicious lung nodules or enlarged lymph nodes. -- take course of antibiotic Cefdinir and Prednisone; ordered ([facility]) --- close ffup CT 3 mos. 07/06/24 07/04/24 CT CHEST WITHOUT CONTRAST (hosp admission PNA) IMPRESSION: 1. Multifocal infiltrates bilaterally suggestive of pneumonia. Findings within left lung could represent neoplasm, however, there is been notable change since 04/01/2024 with some previously seen lesions no longer present, and multiple new lesions suggesting this represents changing pattern of pneumonia. Consider follow-up CT chest in 2 months to document clearing. 2. Chronic mild emphysematous changes and bronchiectasis. --- ffup CT 2-3 mos for resolution, 09/2024 - clinically improved; s/p emp atb - aspn precautions; on tube feeds - ffup CT for resolution - further evaluation, management pending results, clinical course. Centrilobular emphysema Mild ULP; smoking hx; See COPD txs Relevant Orders OVERNIGHT PULSE OXIMETRY TEST Chronic respiratory failure with hypoxia, on home oxygen therapy Relevant Orders OVERNIGHT PULSE OXIMETRY TEST Chronic obstructive pulmonary disease Relevant Orders OVERNIGHT PULSE OXIMETRY TEST OVERNIGHT PULSE OXIMETRY TEST Other Visit Diagnoses Malignant neoplasm of base of tongue HPI 07/23/24: on inhalers; O2 mainly HS and prn. Imaging, PFT, 6mwt, labs, Notes Reviewed. - [facility]- DC summary Reviewed: PNA BLL - hcap atb, nebs. Iv steroid. Follow cultures; elev Trop.; Dysphagia w/ PEG. 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 T2 N1 G3, stage IIB, squamous cell carcinoma Patient that time was treated with chemoradiation therapy. Hx of PE on Eliquis. Oral Candidiasis - Diflucan. Details as noted. 04/22/24: not in ae, on inhalers. Imaging, PFT, 6mwt, labs, Notes Reviewed. On apixaban/Eliquis - no recurrent VTE, bleeding. - 01/26/[address] [facility] [address] Brandon Reviewed: --- seen by Dr. Rivas and they decided not to have the vocal cord fillers placed due to inability to speak. He continues to use his feeding tube. ASSESSMENT / PLAN: 1. 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 He is due to see Dr. Holder. 2. Weight loss. Patient is status post PEG. Patient is been evaluated by nutrition. He is receiving additional supplementation. He is having more trouble aspiration. 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 He is s/p peg. No clear evidence of malignancy. Patient return to see me in 6 months. 3. Increasing nodular densities right lower lobe. He is due to see Dr. Bojorquez in followup. 4. Pleural-based density. 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 6. Right Kidney.had MRI dated March 12, 2023. This showed multiple bilateral renal cysts. Predominant Bosniak 1 and Bosniak 2. Since most recent CT scan shows abnormality involving the right kidney. I will discuss the case with Dr. Perez from whether further workup needs to be done. Consider urology evaluation. 12/31/23: not in ae, on inhalers. Imaging, PFT, 6mwt, labs, Notes Reviewed. - admitted 12/21-08/2023 [facility] Summary Reviewed: AMS; PE, PNA; Details as noted. --- Right lower lobe posterior segmental pulmonary artery with acute right heart strain. Echo, ejection fraction 68%, no pulmonary hypertension Cardiology consulted, recommendation no indication for intervention, recommended switch to oral anticoagulation Start heparin drip initially, switched to oral Eliquis on 12/23 Doppler studies lower extremity negative for DVT Chest pain nonspecific on 12/23, responded to Tylenol and oxycodone Patient pain-free on 12/24 acute hypoxemic respiratory failure, current on NC 2 L/min. Acute bilateral CAP- right upper lobe and left lower lobe. Acute bronchitis. Right lower lobe bronchiectasis Follow-up chest CT in 3 months is recommended to exclude developing neoplasm Urine Legionella and strep antigen. Negative Start ceftriaxone and azithromycin initially, azithromycin stop on 12/22, patient discharged on Augmentin for 5 days course Chest PT DuoNeb every 6 as needed Oxygen has dropped since night of 12/23 with findings of fluid overload on chest x-ray proBNP within normal limit Lasix 20 mg IV once on 12/23, 10 mg on 12/24 Patient prior to this hospitalization was evaluated for home oxygen at that time he refused but he is okay to wear oxygen at home if needed RT assessed him for home oxygen Right lower extremity pain Possibly muscle strain Knee x-ray negative for acute findings Venous Doppler negative for DVT Tylenol as needed Tongue cancer status post PEG resection, now on PEG tube for dysphagia Continue with PEG tube for feeding, hold tube feed until cardiology evaluate the patient Dietitian consulted Patient has had intermittent tongue complete since admission, contribution due to IV heparin, continue heparin drip for now as patient does not have any active bleed and risk of thrombosis is higher than risk of bleed, patient and patient okay with the plan No more bleeding on 12/24 BPH Urinary retention Continue Flomax, patient stated that Flomax extended release cannot be pushed through PEG tube and requested Serna catheter be discontinued Serna catheter inserted upon admission, discontinued on 12/23 Patient reported some urinary incontinence on 12/24, multifactorial due to Lasix, status post discontinue Serna catheter, patient to follow-up with urology as outpatient, likely incontinence is temporary Depression Anxiety Continue sertralineRLL segmental PE w/ RT heart strain 08/26/23: not in ae, on inhaler albuterol. Imaging, PFT, 6mwt, labs, Notes Reviewed. - 08/07/23 PCP ffup Reviewed. - 07/23/[address] [facility] [address] Brandon Reviewed: Since her last visit, patient reports that he has been seen by Dr. Rivas that time to discuss possible vocal cord fillers. Patient reports he is not interested. In addition patient has been seen by speech therapy. This has also been stabilized. He continues to use his feeding tube. -- ASSESSMENT / PLAN: 1. 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 He is due to see Dr. Holder. 2. Weight loss. Patient is status post PEG. Patient is been evaluated by nutrition. He is receiving additional supplementation. He is having more trouble aspiration. 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 Patient has been evaluated by ENT. Patient was seen by Dr. Rivas. They are talking about vocal cord filler. No clear evidence of malignancy. Patient return to see me in 6 months. 3. Increasing nodular densities right lower lobe. This would likely represent aspiration however given the severity we will repeat CT scans in 6 months. 4. Pleural-based density. Previously mentioned pleural-based lesion is no longer seen or mentioned on this CT. I will ask for direct comparison. 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 6. Right Kidney.had MRI dated March 12, 2023. This showed multiple bilateral renal cysts. Predominant Bosniak 1 and Bosniak 2. - admitted 06/13- DC Summary Reviewed: Aspn PNA bilat. - IV atb, steroids; O2 weaned off; continuous tube feeds at home was set-up. DC w/ emp Levaquin, Prednisone taper. Details as noted. -- Discharge Diagnoses: Principal Problem: Aspiration pneumonia of both lungs Active Problems: Multiple lung nodules on CT Inadequate energy intake related to decreased ability to consume sufficient energy as evidenced by hx of throat cancer and current total nutrition provided via PEG. Leukocytosis Squamous cell carcinoma of tongue S/P percutaneous endoscopic gastrostomy (PEG) tube placement GERD (gastroesophageal reflux disease) Acute respiratory failure with hypoxia COPD exacerbation Cough with hemoptysis Mass of pleura Brief Summary of Hospital Course: Mr. Amy Sun is a 72 year old male with a past medical history including hypertension, hyperlipidemia, GERD, BPH, DJD, COPD, hepatic steatosis, insomnia, tongue cancer, pharyngeoesophageal dysphagia S/P PEG tube placement and former tobacco abuse who presented to ER with complaints of dyspnea. Patient's temperature was 100.5 on arrival. He was 82% on room air. CT chest did show multifocal pneumonia and suggest aspiration. Patient placed on HCAP antibiotic coverage and admitted to floor for further treatment and care. While hospitalized patients labs and VS were monitored and additional testing was ordered and reviewed. He was weaned off oxygen back to room air and has remained stable. Blood cultures drawn on arrival have remained negative to date and his MRSA screen on arrival was determined negative. Patient was treated with IV antibiotics and systemic steroids which have been transitioned to PO for completion of course for treatment of pneumonia. He was seen by tourist home keeper and recommended for continuous feeds which maybe more beneficial to reduce incidence of aspiration form feedings. learning services coordinator were consulted and discharge arrangements were discussed and patient was set up for discharge with continuous tube feedings but did deny all other needs from social work coordinator post discharge. This morning he is afebrile on room air and his white count is trending down. He states doing well and readiness to go home. He will be discharged today in stable condition with instructions to resume medications as listed below and follow up with his PCP in 1 week. Prescriptions have been sent to patients pharmacy of record except tube feed prescription which will be sent by case management to [facility]. 06/04/23 - admitted [facility] 05/24/0707/26/2023 Discharge summary reviewed: PNA, trace hemoptysis - emp Levaquin, Prednisone. Hypoxia - O2 weaned off. AECOPD, HTN, BPH, GERD, Severe PCM malnutrion, s/p PEG, HLD - fmr Smoker; hx of COPD, as per records; was on Albuterol nebs prev. - hx of Squamous cell CA Tongue, s/p PEG; hx of Dysphagia and Aspn PNA. - 03/21/[address] [facility] [address] Brandon: ASSESSMENT / PLAN: 1. 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 He is due to see Dr. Holder. 2. Weight loss. Found to have pharyngoesophageal dysphagia. He has been referred for a PEG. He saw Dr. Payan and they decided to defer on the peg. He reports that his appetite has improved. He is aware the possible CT findings could represent aspiration. Patient was seen by speech therapy on 03/04/2023. No safe diet was recommended the patient and the understand risks of continued feeding. Will continue to follow. 3. Lung cancer screening/Nodule. He quit smoking in 2008 but prior to that had a 3 ppd for [address] scans performed while hospitalized in February. He again was found to have a trach in the right lower lobe. Overall, the lung was suspected to represent pneumonia. I will repeat CAT scans in 3 months to ensure clearing. 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 5. Right Kidney.had MRI dated March 12, 2023. This showed multiple bilateral renal cysts. Predominant Bosniak 1 and Bosniak 2. Some of these lesions are too Femara to fully characterize but there are no overtly suspicious renal masses. Current Outpatient Medications: Acetaminophen 325 MG tablet, Take 2 tablets by mouth Every 6 hours as needed., Disp: , Rfl: Albuterol (2.5 MG/3ML) 0.083% inhalation solution, Take 3 mL by nebulization every 6 hours as needed for Shortness of Breath., Disp: 360 mL, Rfl: 5 apixaban 5 MG tablet, Take 1 tablet by mouth every 12 hours., Disp: 60 tablet, Rfl: 0 budesonide 0.5 MG/2ML nebulizer suspension, Inhale 2 mL 2 times daily. GARGLE, RINSE MOUTH AFTER USE, Disp: 360 mL, Rfl: 3 Doxazosin 4 MG tablet, Take 1 tablet by mouth at bedtime., Disp: , Rfl: FIBER PO, 80ml/hr of Compleat 1.5 continuously for 24 hours. Use 1 carton of Benecalorie daily. Flush with 200ml water four times per day., Disp: , Rfl: Finasteride 5 MG tablet, Take 1 tablet by mouth daily., Disp: , Rfl: fluticasone 50 MCG/ACT Suspension nasal spray, 2 sprays by Nasal route daily., Disp: , Rfl: formoterol (Perforomist) 20 MCG/2ML Nebu Soln nebulizer solution, Take 2 mL by nebulization 2 times daily. GARGLE, RINSE MOUTH AFTER USE, Disp: 360 mL, Rfl: 3 Ipratropium-albuterol 0.5-2.5 (3) MG/3ML nebulizer solution, Take 3 mL by nebulization every 4 hours as needed for Shortness of Breath, Wheezing, Cough or Breathing Treatment., Disp: 360 mL, Rfl: 11 Lactobacillus Rhamnosus, GG, (culturelle) capsule capsule, Take 1 capsule by mouth daily., Disp: , Rfl: Metoclopramide 5 MG tablet, Take 1 tablet by mouth Twice daily., Disp: , Rfl: Nebulizer Misc, 1 Device by Unknown route every 4 hours as needed., Disp: 1 Each, Rfl: 0 Nutritional Supplements (Boost VHC) Liquid, 52 mL by Enteral route., Disp: , Rfl: ondansetron 4 MG/5ML solution, , Disp: , Rfl: Pantoprazole (Protonix) [address] tablet DR, Take 1 tablet by mouth daily., Disp: 90 tablet, Rfl: 1 predniSONE 10 MG tablet, Take 4 tablets by mouth for 3 days, then take 3 tablets by mouth for 3 days, then take 2 tablets by mouth for 3 days, 1 tablet for 3 days, Disp: 30 tablet, Rfl: 0 Revefenacin (Yupelri) 175 MCG/3ML Solution, Inhale 3 mL daily., Disp: 90 mL, Rfl: 11 roflumilast (Daliresp) 500 MCG tablet, Take 1 tablet by mouth daily., Disp: 30 tablet, Rfl: 5 Sertraline (Zoloft) 25 MG tablet, Take 1 tablet by mouth daily., Disp: 90 tablet, Rfl: 1 SPACER FOR INHALER PRESCRIPTION, Use with inhaler as directed, Disp: 1 Each, Rfl: 0 SUMAtriptan 50 MG tablet, Take 1 tablet by mouth Every 2 hours as needed., Disp: , Rfl: Testosterone 25 MG/2.5GM (1%) Gel gel, Place 2.5 g on skin daily., Disp: 225 g, Rfl: 0 traMADol (Ultram) 50 MG tablet, Take 1 tablet by mouth every 4 hours as needed., Disp: 180 tablet, Rfl: 1 Valsartan (Diovan) 160 MG tablet, Take 1 tablet by mouth daily. Check Blood pressure every day. 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 Chemo/RT with Cisplatin and RT and Ethyol. RT completed 02/28/09. Past Surgical History: Procedure Laterality Date EGD W/ PLACEMENT OR REPLACEMENT PEG 04/04/2023 NECK SURGERY 2008 for cancer INGUINAL HERNIA REPAIR 1988 REMOVAL CATARACT (PEM) Bilateral VASECTOMY Social History Tobacco Use Smoking status: Former Types: Cigarettes Smokeless tobacco: Never Substance Use Topics Alcohol use: No Family History Problem Relation Age of Onset No known problems Mother Heart Disease - Other Father Heart Disease - Other Brother Heart Disease - Other Other Coronary Artery Disease Other No Known Allergies Review of Systems Neck circumference - Currently smoking or Hx of smoking - former Oxygen use __yes (3L NOC)____ patient is benefiting from oxygen use. Do you have a CPAP- no [facility] company- [facility] Most recent CT- 07/04/24 Most recent PFT- 08/21/24 Symptoms include:coughing, Increase in shortness of breath- no Dyspnea upon exertion-no Dyspnea at rest- no Cough- productive- Have you had the Covid 19 vaccine-11/24/23 Do you need a Medication refill? no Pt presents for review of CT Chest Maintenance medication - roflumilast (Daliresp) 500 MCG tablet , Flonase Maintenance inhaler- Rescue medication-Revefenacin (Yupelri) 175 MCG/3ML Solution, formoterol (feels like throat is constricted)((Perforomist) 20 MCG/2ML Nebu Soln nebulizer solution (feels like throat is constricted) budesonide 0.5 MG/2ML nebulizer (feels like throat is constricted)suspension, Ipratropium-albuterol 0.5-2.5 (3) MG/3ML nebulizer solution makes face numb on right side Patient last seen in office on 04/22/24 and is present for a 3 month follow up to review results of CT Chest (07/04/24) Vitals: 07/23/24 1443 BP: 132/68 Pulse: 62 Resp: 18 SpO2: 96% Weight: 81.1 kg (178 lb 12.8 oz) Height: 1.829 m (6') Vital Signs Reviewed as noted. Physical Exam Vitals and nursing note reviewed. Constitutional: General: He is not in acute distress. Appearance: He is not ill-appearing. HENT: Head: Normocephalic and atraumatic. Right Ear: External ear normal. Left Ear: External ear normal. Nose: Nose normal. Mouth/Throat: Mouth: Mucous membranes are moist. Pharynx: Oropharynx is clear. No oropharyngeal exudate or posterior oropharyngeal erythema. Eyes: General: No scleral icterus. Neck: Vascular: No JVD. Trachea: No tracheal deviation. Cardiovascular: Rate and Rhythm: Normal rate and regular rhythm. Heart sounds: Normal heart sounds. Pulmonary: Effort: Pulmonary effort is normal. No respiratory distress. Breath sounds: No stridor. Examination of the right-lower field reveals rales. Examination of the left-lower field reveals rales. Rales present. No wheezing or rhonchi. Chest: Chest wall: No tenderness. Abdominal: Comments: PEG Genitourinary: Comments: Deferred Musculoskeletal: Cervical back: Neck supple. Right lower leg: No edema. Left lower leg: No edema. Lymphadenopathy: Cervical: No cervical adenopathy. Skin: General: Skin is warm and dry. Coloration: Skin is not jaundiced. Neurological: Mental Status: He is alert and oriented to person, place, and time. Psychiatric: Mood and Affect: Mood normal. Behavior: Behavior normal. I personally reviewed selected chart notes, results, interpreted tests, imaging today before seeing the pt; reviewed and discussed w/ pt, questions answered 07/14/24 CXR PA-lat [facility] (per PCP): nonacute FINDINGS: Two-view chest x-ray. No pneumothorax, pleural effusion or focal airspace consolidation. Heart is normal in size. Bony thorax is unremarkable. 07/05/24 Limited 2D, Doppler, and color-flow Echocardiogram Conclusion Limited echocardiogram Normal RV/LV size and function ejection fraction 65-70%. Grade 1 diastolic dysfunction Normal atrial sizes Incidental atrial septal aneurysm noted usually benign finding. Possible PFO by color flow. No significant valvular or pericardial abnormality No pulmonary hypertension Echocardiogram similar to that of 12/2023. 07/04/24 CT CHEST WITHOUT CONTRAST IMPRESSION: 1. Multifocal infiltrates bilaterally suggestive of pneumonia. Findings within left lung could represent neoplasm, however, there is been notable change since 04/01/2024 with some previously seen lesions no longer present, and multiple new lesions suggesting this represents changing pattern of pneumonia. Consider follow-up CT chest in 2 months to document clearing. 2. Chronic mild emphysematous changes and bronchiectasis. 04/08/2024 CT Chest w/o contrast reviewed: Previous RLL infiltrates, atelectasis on CT 06/14/23 - Improved, Resolved. COPD w/ ULP Emphysema, RLL mild bronchiectatic changes - Similar to prior. New, small lung nodules, largest LLL 8.7 mm - probably mild inflammation, possibly infection. Otherwise, No new suspicious lung nodules or enlarged lymph nodes. -- take course of antibiotic Cefdinir and Prednisone; ordered ([facility] [facility]) --- close ffup CT 3 mos. 07/06/24 - 12/22/23 CTPE ([facility] admission - PE) Impression 1. Exam is positive for pulmonary embolus with filling defect in a right lower lobe posterior segmental pulmonary artery. There is reversal of the normal interventricular septal bowing suggestive of acute right heart strain. 2. Rounded consolidative opacity in the posterior right upper lobe and small cavitary nodule in the superior segment of the right lower lobe are new when compared to 06/14/2023. These are favored to relate to acute infectious/inflammatory nodules/pneumonia with additional patchy areas of infectious/inflammatory infiltrate in the left lower lobe. Short-term follow-up chest CT in 3 months is recommended to exclude developing neoplasm. 3. Right lower lobe bronchiectasis with bronchial wall thickening and areas of mucous plugging consistent with acute bronchitis. Airway secretions are present in the right mainstem bronchus. --- ffup CT 3 mos 03/23/24 - 12/23/23 Duplex examination using B-mode, color and spectral Doppler of extremity veins including responses to compression and other maneuvers; complete bilateral study. Conclusions * No evidence of deep or superficial vein thrombosis in the lower extremities bilaterally. * Hypoechoic structure noted in the left popliteal fossa measuring 2.4 x 2.8 x 1.1 cm. - 12/23/23 Echocardiogram [facility] (PE) Summary 1. Left ventricular systolic function is normal with an ejection fraction by Biplane Method of Discs of 68 %. 2. Right ventricular size and systolic function are normal. 3. The left ventricular diastolic function is normal. 4. No hemodynamically significant valvular disease. 5. There is no pulmonary hypertension, estimated right ventricle systolic pressure is 33 mmHg. - 12/24/23 CXR [facility] Impression Somewhat low lung volumes. Mild interstitial changes. No focal infiltrates. - 08/22/23 6MWT: RT NOTES ... Had a difficult time getting spo2 due to poor circulation. Attempted numerous times on each hand. - 08/22/2023 PFT: - Spirometry - MODERATELY SEVERE OBSTRUCTION, FEV1/FVC 58%, FEV1 2.03L 58% predicted, FVC 3.53L 74% predicted; w/ SMALL AIRWAY flow limitation. - Significant response to bronchodilator: LARGE response during this testing, as may be seen w/ Asthma, RAD (FEV1 increased 15%). - Lung Volume - HYPERINFLATION, INCREASED TLC 12.03L 167% predicted, RV 8.78L 314% predicted - w/ SEVERE AIR TRAPPING. - Diffusing Capacity: MILDLY REDUCED DLCO 66% predicted, DL/VA 107% (which normalizes when adjusted for lung volume, suggesting probably extraparenchymal cause; e.g., body habitus; may also have emphysema). - Flow Volume Loops - Obstructive pattern; No overt upper airway obstruction pattern. - 07/18/23 CT chest w/ c [facility] IMPRESSION: 1. Since 06/14/2023, mild increase in multifocal tree-in-bud opacities, most pronounced within the right lower lobe, and to a lesser degree within the right middle lobe and left lower lobe, compatible with infection/inflammation. The distribution is consistent with aspiration. 2. Persistent distal bronchiolar mucous plugging within the right lower lobe. Dependent secretions are present within the right mainstem bronchus and bronchus intermedius. 3. Unchanged mildly enlarged mediastinal lymph nodes. CT Chest 06/14/2023 IMPRESSION: 1. Increasing nodular densities right lower lobe most likely inflammatory, correlate for pneumonitis/pneumonia. Prominent gas in the esophagus suggesting reflux, question aspiration pneumonia. 2. Enlarging pleural-based density containing small amounts of gas adjacent to the inflammatory density in the right lower lobe noted above. Seen in the posterior inferior medial right chest centered at the T10-T11 level. Question whether this a chronic inflammatory process within the lung or adjacent pleura. There is no adjacent bony erosion or increasing pleural effusion. Has been present previously of variable size, large larger on 05/09/2023 and decreased on 05/24/2023. - 05/24/23 CTPE: RLL mucus plugging; patchy infiltrates BLL; mild ULP emphysematous changes, central bronchial thickening. IMPRESSION: 1. No change in the right lower lung bronchiectasis with mild to moderate mucous plugging. 2. Mild left basilar subpleural subsegmental atelectasis. 3. Mild underlying emphysema. 4. Air-filled mildly distended proximal esophagus could be a sign of achalasia or presbyesophagus, for example. - 05/07/23 Echocardiogram Conclusion The left ventricle is normal size. There is a speckled pattern to the myocardium suggesting infiltrative disease. Mild diastolic dysfunction is present (impaired relaxation pattern). The left ventricular systolic function is normal. The left ventricular ejection fraction is within the normal range. There is normal LV segmental wall motion. LVEF is 65-70%. The right ventricle is normal size. The right ventricular systolic function is normal. Aortic valve is trileaflet. Mild aortic valve sclerosis. Mild tricuspid regurgitation. No pulmonary hypertension. - 02/18/23 CT Chest w/ c [facility] IMPRESSION: 1. Extensive branching [id number]-xz-[id number]-type micronodules are present in the right lower lobe and right middle lobe, and to a lesser extent in the left lower lobe. This is stable to slightly progressed from the CT performed on 02/05/2023, and compatible with an infectious or inflammatory bronchiolitis. 2. The newly noted 8mm right lower lobe nodule seen on 02/05/2023 has slightly decreased in size to 6 mm on today's study, and is thus presumably related to the infectious/inflammatory bronchiolitis. The newly noted cluster of 4 to 5 mm nodules seen in the right lower lobe on 02/05/2023 is unchanged on today's examination and is likely infectious or inflammatory in etiology as well. A follow-up chest CT is recommended following treatment for infection, to confirm resolution. 3. Additional incidental findings are detailed above. Immunization Administrations COVID-19 04/20/2020 (69 y.o.) 05/19/2020 (69 y.o.) 12/24/2020 (70 y.o.) 10/11/2022 (72 y.o.) INFLUENZA 01/13/2007 (56 y.o.) 01/26/2008 (57 y.o.) 11/17/2013 (63 y.o.) 11/17/2015 (65 y.o.) 10/23/2016 (66 y.o.) 10/30/2017 (67 y.o.) 11/16/2018 (68 y.o.) 11/04/2019 (69 y.o.) 12/01/2020 (70 y.o.) MEASLES, MUMPS, RUBELLA (MMR) 06/22/2013 (62 y.o.) Zoster 10/30/2017 (67 y.o.) 12/29/2017 (67 y.o.) Medical Decision Making Complexity Justification Longitudinal management of complex or chronic condition/s requiring continuous assessment and adjustment Coordination of care with primary care, specialists; as indicated Discussion of disease progression, therapy response, and patient adherence Shared decision-making regarding ongoing therapy Data Review and Analysis: The test results, patient history, and vital signs and other data as noted have been reviewed Risk and Treatment Considerations: Risk of complications and consideration for escalation of care discussed Comorbid conditions as noted, including their impact on pulmonary health and treatment plan was considered 07/23/2024: I reviewed selected chart notes, results, interpreted tests, imaging today before seeing the pt; interviewing and examining pt; reviewed and discussed w/ pt, questions answered; counselling/educating pt/family/caregiver; ordering meds/tests as appropriate; documenting clinical information in the chart. Return in about 3 months (around 10/23/2024). CT 09/2024 FOLLOW-UP Patient was advised to call with any questions or concerns. If symptoms worsen or fail to improve patient was advised to call for follow up in our office and/or PCP, or go to the Emergency Dept. Benefits, Risks, Contraindications, and Complications of recommended treatments were explained (and to call if prescriptions are not feasible); and the patient stated understanding and agreement to proceed with plan. Some Elements copied from previous notes. I have updated where appropriate, and all reflect current medical decision making from today's encounter. Note: This dictation was generated using voice recognition software. Please excuse any typographical, grammatical or spelling errors that may have occurred using the system Note to patient: The Cures Act makes medical notes like these available to patients in the interest of transparency. However, be advised this is a medical document. It is intended as qblc-ve-xuco communication. It is written in medical language and may contain abbreviations or verbiage that are unfamiliar. It may appear blunt or direct. Medical documents are intended to carry relevant information, facts as evident, and the clinical opinion of the practitioner. Yobani Bojorquez MD, MPH, [facility] Pulmonary/Critical Care Medicine [facility] 07/23/2024 documented in this encounter [facility] 2024 Note Addended by: GAVIN HAMMONDS on: 2024 02:32 PM Modules accepted: Orders [facility] 2024 Miscellaneous Notes Addended by: GAVIN HAMMONDS on: 2024 02:32 PM Modules accepted: Orders documented in this encounter [facility] 07-14-2024 History of Present illness Narrative Subjective Patient ID: Amy Sun is a 73 y.o. male. Chief Complaint Patient presents with Follow-up hospital HPI Presented to [facility] 07/04 with SOB, hypoxia was found to have PNA bilateral lower lobes. He was evaluated by cardiology during admission due to elevated troponin and is to follow with them on outpatient basis as well. As for the PNA, he was also recently admitted in May for PNA as well. Does have director of veterans affairs, Dr. Bojorquez, who he has appt with July 23. On CT there are pulmonary lesions for which he is following with them for and recommended follow up CT in 2 months. He brings concern today regarding using his nebulizer at home. States that when he uses his nebulizer he will experience numbness/tingling to face and throat tightness. States he has been on these nebulizer for a long time without any side effects, currently uses budesonide and formoterol at same time. He is on oxygen at night normally 2-3 L. Does monitor pulse oximetry at home, states it has been above 90. Throughout hospital stay he was also treated for oral prerna and has continued to finish prescription of fluconazole at home. Patient brings concern today regarding upset stomach, abdominal pain to epigastric region. 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 [facility]. Dysphagia and s/p PEG tube placement. He is currently on Pepcid 20 mg and Reglan 5 mg BID. He does follow with GI and had recent EGD in May and states he is to have PEG tube replacement with EGD next month. Was on PPI in the past but was unable to tolerate as it clogged the PEG tube. States this abdominal pain has been worsening over past few months. States he goes through the motion of throwing up but due to history, does not actually have emesis that comes up. Does have HOB elevated when doing Tube feedings. Does not take anything orally. Was on celecoxib for pain recently but was not able to tolerate this as it worsened stomach pain, therefore not currently taking. Does have Tramadol on med list, but states has not taken his for many months. He was also evaluated by cardiology throughout hospital stay. He is currently on Eliquis for history of PE. Per chart cardiology states elevated troponin likely a type II NSTEMI due to demand ischemia The following portions of the patient's history were reviewed and updated as appropriate: allergies, current medications, past family history, past medical history, past social history, past surgical history, and problem list. 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 Chronic kidney disease (CKD) stage G1/A2, glomerular filtration rate (GFR) equal to or greater than 90 mL/min/1.73 square meter and albuminuria creatinine ratio between 30-299 mg/g COPD (chronic obstructive pulmonary disease) (HCC) ED (erectile dysfunction) Edema leg bilateral GERD (gastroesophageal reflux disease) Hepatic steatosis Hyperlipidemia Hypertension Insomnia Migraine without aura and without status migrainosus, not intractable 09/25/2023 Prediabetes Past Surgical History: Procedure Laterality Date ABDOMINAL SURGERY CATARACT EXTRACTION BILATERAL W/ ANTERIOR VITRECTOMY CATARACT EXTRACTION BILATERAL W/ ANTERIOR VITRECTOMY Bilateral CT COLONOSCOPY 03/25/2022 CT COLONOSCOPY LAPAROSCOPIC INGUINAL HERNIA REPAIR [address] Holder for tongue cancer PEG TUBE PLACEMENT 04/04/2023 VASECTOMY Social History[1] Family History Problem Relation Age of Onset Stroke Father Heart disease Father Coronary artery disease Father Diabetes Sister Coronary artery disease Brother Allergies[2] Outpatient Medications as of 07/14/2024 Medication Sig albuterol 90 mcg/actuation inhaler Inhale 2 (two) puffs every 6 (six) hours as needed for shortness of breath or wheezing . apixaban (Eliquis) 5 mg Tab 1 (one) tablet (5 mg total) by Per G Tube route 2 (two) times a day . apixaban (ELIQUIS) 5 mg Tab 1 (one) tablet (5 mg total) by Per G Tube route 2 (two) times a day . budesonide (PULMICORT) 0.5 mg/2 mL nebulizer solution Take 2 mL (0.5 mg total) by nebulization daily . celecoxib (ELYXYB) 120 mg/4.8 mL (25 mg/mL) Soln Take 120 mg per G-tube daily . famotidine (PEPCID) 20 MG tablet Take 1 (one) tablet (20 mg total) by mouth 2 (two) times a day . fluticasone propionate (FLONASE) 50 mcg/actuation nasal spray Instill 2 (two) sprays into each nostril daily . formoterol fumarate (PERFOROMIST) 20 mcg/2 mL nebulizer solution Take 2 mL (20 mcg total) by nebulization . glucose 4 g chewable tablet Chew and Swallow 4 (four) tablets (16 g total) as needed for low blood sugar . Lactobacillus rhamnosus GG (CULTURELLE) 10 billion cell capsule Take 1 (one) capsule by mouth daily . metoclopramide (REGLAN) 5 MG tablet Take 1 (one) tablet (5 mg total) by mouth 2 (two) times a day Take 30 minutes before meal . sertraline (ZOLOFT) 50 MG tablet Take 1 (one) tablet (50 mg total) by mouth daily . SUMAtriptan (IMITREX) 50 MG tablet Take 1 (one) tablet (50 mg total) by mouth every 2 (two) hours as needed for migraine Max of 200 mg in 24hrs, do not treat more than 3 times a week . tamsulosin (FLOMAX) 0.4 mg capsule Take 1 (one) capsule (0.4 mg total) by mouth daily . (Patient taking differently: Take 1 (one) capsule (0.4 mg total) by mouth 2 (two) times a day .) traMADol (ULTRAM) 50 mg tablet Take 1 (one) tablet (50 mg total) by mouth every 4 (four) hours as needed for pain (Days supply per fill: . sucralfate (CARAFATE) 100 mg/mL suspension 10 mL (1 g total) by Per G Tube route 4 (four) times a day for 7 days . Review of Systems Objective BP 114/78 (BP Location: Left arm, Patient Position: Sitting, BP Cuff Size: Adult) Pulse 70 Temp 98 F (36.7 C) Resp 18 Ht 6' 1 Wt 81.9 kg (180 lb 9.6 oz) SpO2 91% BMI 23.83 kg/m Physical Exam Constitutional: General: He is not in acute distress. Appearance: He is ill-appearing. HENT: Ears: Comments: Bilateral hearing aids Mouth/Throat: Mouth: Mucous membranes are moist. Eyes: Conjunctiva/sclera: Conjunctivae normal. Cardiovascular: Rate and Rhythm: Normal rate and regular rhythm. Heart sounds: Normal heart sounds. Pulmonary: Effort: No respiratory distress. Breath sounds: No stridor. Wheezing and rhonchi present. No rales. Abdominal: General: Bowel sounds are normal. Palpations: Abdomen is soft. Tenderness: There is abdominal tenderness (upon palpation to epigastric region). There is no guarding. Comments: G-tube in place no surrounding erythema, edema or excortiation Skin: General: Skin is warm and dry. Neurological: Mental Status: He is alert and oriented to person, place, and time. Psychiatric: Behavior: Behavior normal. Assessment/Plan: Diagnoses and all orders for this visit: Hospital discharge follow-up Pneumonia of both lower lobes due to infectious organism - XR Chest AP/PA and LAT; Future Cough, unspecified type - XR Chest AP/PA and LAT; Future Oropharyngeal dysphagia Gastroesophageal reflux disease, unspecified whether esophagitis present - sucralfate (CARAFATE) 100 mg/mL suspension; 10 mL (1 g total) by Per G Tube route 4 (four) times a day for 7 days . History of tongue cancer Centrilobular emphysema (HCC) S/P percutaneous endoscopic gastrostomy (PEG) tube placement (HCC) Reviewed [facility] from [facility], due to worsening symptoms today, and rhonchi, coarse, and wheezing on auscultation of lungs, would like to repeat Xray today. Due to symptoms and physical exam, discussed with patient and low threshold for returning to ED as he recently had PNA in May and again this month. He has finished his course of antibiotics (Levofloxacin). Encouraged to continuing/finishing course of prednisone and fluconazole (for oral prerna). Once CXR is back will notify with further plan of care. Reviewed warning signs and symptoms and when to follow up or present to nearest emergency department. Encouraged to use nebulizer, but due to his facial numbness when using encouraged to separate the medications, to determine if one is causing symptoms. He does have appt with director of veterans affairs July 23 encouraged to reach out to see if he can be seen sooner. Encouraged to continue following with cardiology outpatient. Per Cardiology note, elevated troponin type II NSTEMI due to demand ischemiaDid have echo 07/05/24 which revealed EF 65-70%, no WMA, grade 1 diastolic dysfunction, incidental atrial septal aneurysm, possible PFO. He is currently on statin and ARB. Abdominal pain/GERD Encouraged continuing following with GI. As he is unable to tolerate PPI d/t PEG tube, will send in 1 week of carafate in hopes to help calm down GERD symptoms and aid in relief. If abdominal pain persists encouraged following up with GI sooner. For any medications prescribed today, patient was educated about indications for the medication, how to take the medication and potential side effects of the medication. Please note: Portions of this chart may have been created with [employer] voice recognition software. Occasional wrong-word or sound-like substitutions may have occurred due to inherent limitations of the voice recognition software. Please read the chart carefully and recognize, using context, where the substitutions have occurred. Electronically signed by JERAD Verdin 8:56 AM [1] Social History Tobacco Use Smoking status: Former Current packs/day: 0.00 Types: Cigarettes Start date: 1960 Quit date: 2008 Years since quittin.4 Passive exposure: Past Smokeless tobacco: Never Vaping Use Vaping status: Never Used Substance Use Topics Alcohol use: Not Currently Drug use: Not Currently [2] No Known Allergies documented in this encounter [facility] 07-14-2024 History of Present illness Narrative Subjective Patient ID: Amy Sun is a 73 y.o. male. Chief Complaint Patient presents with Follow-up hospital HPI Presented to [facility] 07/04 with SOB, hypoxia was found to have PNA bilateral lower lobes. He was evaluated by cardiology during admission due to elevated troponin and is to follow with them on outpatient basis as well. As for the PNA, he was also recently admitted in May for PNA as well. Does have director of veterans affairs, Dr. Bojorquez, who he has appt with July 23. On CT there are pulmonary lesions for which he is following with them for and recommended follow up CT in 2 months. He brings concern today regarding using his nebulizer at home. States that when he uses his nebulizer he will experience numbness/tingling to face and throat tightness. States he has been on these nebulizer for a long time without any side effects, currently uses budesonide and formoterol at same time. He is on oxygen at night normally 2-3 L. Does monitor pulse oximetry at home, states it has been above 90. Throughout hospital stay he was also treated for oral prerna and has continued to finish prescription of fluconazole at home. Patient brings concern today regarding upset stomach, abdominal pain to epigastric region. 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 [facility]. Dysphagia and s/p PEG tube placement. He is currently on Pepcid 20 mg and Reglan 5 mg BID. He does follow with GI and had recent EGD in May and states he is to have PEG tube replacement with EGD next month. Was on PPI in the past but was unable to tolerate as it clogged the PEG tube. States this abdominal pain has been worsening over past few months. States he goes through the motion of throwing up but due to history, does not actually have emesis that comes up. Does have HOB elevated when doing Tube feedings. Does not take anything orally. Was on celecoxib for pain recently but was not able to tolerate this as it worsened stomach pain, therefore not currently taking. Does have Tramadol on med list, but states has not taken his for many months. He was also evaluated by cardiology throughout hospital stay. He is currently on Eliquis for history of PE. Per chart cardiology states elevated troponin likely a type II NSTEMI due to demand ischemia The following portions of the patient's history were reviewed and updated as appropriate: allergies, current medications, past family history, past medical history, past social history, past surgical history, and problem list. 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 Chronic kidney disease (CKD) stage G1/A2, glomerular filtration rate (GFR) equal to or greater than 90 mL/min/1.73 square meter and albuminuria creatinine ratio between 30-299 mg/g COPD (chronic obstructive pulmonary disease) ([facility]) ED (erectile dysfunction) Edema leg bilateral GERD (gastroesophageal reflux disease) Hepatic steatosis Hyperlipidemia Hypertension Insomnia Migraine without aura and without status migrainosus, not intractable 09/25/2023 Prediabetes Past Surgical History: Procedure Laterality Date ABDOMINAL SURGERY CATARACT EXTRACTION BILATERAL W/ ANTERIOR VITRECTOMY CATARACT EXTRACTION BILATERAL W/ ANTERIOR VITRECTOMY Bilateral CT COLONOSCOPY 03/25/2022 CT COLONOSCOPY LAPAROSCOPIC INGUINAL HERNIA REPAIR [address] Holder for tongue cancer PEG TUBE PLACEMENT 04/04/2023 VASECTOMY Social History[1] Family History Problem Relation Age of Onset Stroke Father Heart disease Father Coronary artery disease Father Diabetes Sister Coronary artery disease Brother Allergies[2] Outpatient Medications as of 07/14/2024 Medication Sig albuterol 90 mcg/actuation inhaler Inhale 2 (two) puffs every 6 (six) hours as needed for shortness of breath or wheezing . apixaban (Eliquis) 5 mg Tab 1 (one) tablet (5 mg total) by Per G Tube route 2 (two) times a day . apixaban (ELIQUIS) 5 mg Tab 1 (one) tablet (5 mg total) by Per G Tube route 2 (two) times a day . budesonide (PULMICORT) 0.5 mg/2 mL nebulizer solution Take 2 mL (0.5 mg total) by nebulization daily . celecoxib (ELYXYB) 120 mg/4.8 mL (25 mg/mL) Soln Take 120 mg per G-tube daily . famotidine (PEPCID) 20 MG tablet Take 1 (one) tablet (20 mg total) by mouth 2 (two) times a day . fluticasone propionate (FLONASE) 50 mcg/actuation nasal spray Instill 2 (two) sprays into each nostril daily . formoterol fumarate (PERFOROMIST) 20 mcg/2 mL nebulizer solution Take 2 mL (20 mcg total) by nebulization . glucose 4 g chewable tablet Chew and Swallow 4 (four) tablets (16 g total) as needed for low blood sugar . Lactobacillus rhamnosus GG (CULTURELLE) 10 billion cell capsule Take 1 (one) capsule by mouth daily . metoclopramide (REGLAN) 5 MG tablet Take 1 (one) tablet (5 mg total) by mouth 2 (two) times a day Take 30 minutes before meal . sertraline (ZOLOFT) 50 MG tablet Take 1 (one) tablet (50 mg total) by mouth daily . SUMAtriptan (IMITREX) 50 MG tablet Take 1 (one) tablet (50 mg total) by mouth every 2 (two) hours as needed for migraine Max of 200 mg in 24hrs, do not treat more than 3 times a week . tamsulosin (FLOMAX) 0.4 mg capsule Take 1 (one) capsule (0.4 mg total) by mouth daily . (Patient taking differently: Take 1 (one) capsule (0.4 mg total) by mouth 2 (two) times a day .) traMADol (ULTRAM) 50 mg tablet Take 1 (one) tablet (50 mg total) by mouth every 4 (four) hours as needed for pain (Days supply per fill: . sucralfate (CARAFATE) 100 mg/mL suspension 10 mL (1 g total) by Per G Tube route 4 (four) times a day for 7 days . Review of Systems Objective BP 114/78 (BP Location: Left arm, Patient Position: Sitting, BP Cuff Size: Adult) Pulse 70 Temp 98 F (36.7 C) Resp 18 Ht 6' 1 Wt 81.9 kg (180 lb 9.6 oz) SpO2 91% BMI 23.83 kg/m Physical Exam Constitutional: General: He is not in acute distress. Appearance: He is ill-appearing. HENT: Ears: Comments: Bilateral hearing aids Mouth/Throat: Mouth: Mucous membranes are moist. Eyes: Conjunctiva/sclera: Conjunctivae normal. Cardiovascular: Rate and Rhythm: Normal rate and regular rhythm. Heart sounds: Normal heart sounds. Pulmonary: Effort: No respiratory distress. Breath sounds: No stridor. Wheezing and rhonchi present. No rales. Abdominal: General: Bowel sounds are normal. Palpations: Abdomen is soft. Tenderness: There is abdominal tenderness (upon palpation to epigastric region). There is no guarding. Comments: G-tube in place no surrounding erythema, edema or excortiation Skin: General: Skin is warm and dry. Neurological: Mental Status: He is alert and oriented to person, place, and time. Psychiatric: Behavior: Behavior normal. Assessment/Plan: Diagnoses and all orders for this visit: Hospital discharge follow-up Pneumonia of both lower lobes due to infectious organism - XR Chest AP/PA and LAT; Future Cough, unspecified type - XR Chest AP/PA and LAT; Future Oropharyngeal dysphagia Gastroesophageal reflux disease, unspecified whether esophagitis present - sucralfate (CARAFATE) 100 mg/mL suspension; 10 mL (1 g total) by Per G Tube route 4 (four) times a day for 7 days . History of tongue cancer Centrilobular emphysema (HCC) S/P percutaneous endoscopic gastrostomy (PEG) tube placement (HCC) Reviewed [facility] from [facility], due to worsening symptoms today, and rhonchi, coarse, and wheezing on auscultation of lungs, would like to repeat Xray today. Due to symptoms and physical exam, discussed with patient and low threshold for returning to ED as he recently had PNA in May and again this month. He has finished his course of antibiotics (Levofloxacin). Encouraged to continuing/finishing course of prednisone and fluconazole (for oral prerna). Once CXR is back will notify with further plan of care. Reviewed warning signs and symptoms and when to follow up or present to nearest emergency department. Encouraged to use nebulizer, but due to his facial numbness when using encouraged to separate the medications, to determine if one is causing symptoms. He does have appt with director of veterans affairs July 23 encouraged to reach out to see if he can be seen sooner. Encouraged to continue following with cardiology outpatient. Per Cardiology note, elevated troponin type II NSTEMI due to demand ischemiaDid have echo 07/05/24 which revealed EF 65-70%, no WMA, grade 1 diastolic dysfunction, incidental atrial septal aneurysm, possible PFO. He is currently on statin and ARB. Abdominal pain/GERD Encouraged continuing following with GI. As he is unable to tolerate PPI d/t PEG tube, will send in 1 week of carafate in hopes to help calm down GERD symptoms and aid in relief. If abdominal pain persists encouraged following up with GI sooner. For any medications prescribed today, patient was educated about indications for the medication, how to take the medication and potential side effects of the medication. Please note: Portions of this chart may have been created with [employer] voice recognition software. Occasional wrong-word or sound-like substitutions may have occurred due to inherent limitations of the voice recognition software. Please read the chart carefully and recognize, using context, where the substitutions have occurred. Electronically signed by JERAD Verdin 8:56 AM [1] Social History Tobacco Use Smoking status: Former Current packs/day: 0.00 Types: Cigarettes Start date: 1960 Quit date: 2008 Years since quittin.4 Passive exposure: Past Smokeless tobacco: Never Vaping Use Vaping status: Never Used Substance Use Topics Alcohol use: Not Currently Drug use: Not Currently [2] No Known Allergies documented in this encounter [facility] 07-14-2024 Note Subjective Patient ID: Amy Sun is a 73 y.o. male. Chief Complaint Patient presents with Follow-up hospital HPI Presented to [facility] 07/04 with SOB, hypoxia was found to have PNA bilateral lower lobes. He was evaluated by cardiology during admission due to elevated troponin and is to follow with them on outpatient basis as well. As for the PNA, he was also recently admitted in May for PNA as well. Does have director of veterans affairs, Dr. Bojorquez, who he has appt with July 23. On CT there are pulmonary lesions for which he is following with them for and recommended follow up CT in 2 months. He brings concern today regarding using his nebulizer at home. States that when he uses his nebulizer he will experience numbness/tingling to face and throat tightness. States he has been on these nebulizer for a long time without any side effects, currently uses budesonide and formoterol at same time. He is on oxygen at night normally 2-3 L. Does monitor pulse oximetry at home, states it has been above 90. Throughout hospital stay he was also treated for oral prerna and has continued to finish prescription of fluconazole at home. Patient brings concern today regarding upset stomach, abdominal pain to epigastric region. 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 [facility]. Dysphagia and s/p PEG tube placement. He is currently on Pepcid 20 mg and Reglan 5 mg BID. He does follow with GI and had recent EGD in May and states he is to have PEG tube replacement with EGD next month. Was on PPI in the past but was unable to tolerate as it clogged the PEG tube. States this abdominal pain has been worsening over past few months. States he goes through the motion of throwing up but due to history, does not actually have emesis that comes up. Does have HOB elevated when doing Tube feedings. Does not take anything orally. Was on celecoxib for pain recently but was not able to tolerate this as it worsened stomach pain, therefore not currently taking. Does have Tramadol on med list, but states has not taken his for many months. He was also evaluated by cardiology throughout hospital stay. He is currently on Eliquis for history of PE. Per chart cardiology states elevated troponin likely a type II NSTEMI due to demand ischemia The following portions of the patient's history were reviewed and updated as appropriate: allergies, current medications, past family history, past medical history, past social history, past surgical history, and problem list. 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 Chronic kidney disease (CKD) stage G1/A2, glomerular filtration rate (GFR) equal to or greater than 90 mL/min/1.73 square meter and albuminuria creatinine ratio between 30-299 mg/g COPD (chronic obstructive pulmonary disease) (HCC) ED (erectile dysfunction) Edema leg bilateral GERD (gastroesophageal reflux disease) Hepatic steatosis Hyperlipidemia Hypertension Insomnia Migraine without aura and without status migrainosus, not intractable 09/25/2023 Prediabetes Past Surgical History: Procedure Laterality Date ABDOMINAL SURGERY CATARACT EXTRACTION BILATERAL W/ ANTERIOR VITRECTOMY CATARACT EXTRACTION BILATERAL W/ ANTERIOR VITRECTOMY Bilateral CT COLONOSCOPY 03/25/2022 CT COLONOSCOPY LAPAROSCOPIC INGUINAL HERNIA REPAIR [address]. Holder for tongue cancer PEG TUBE PLACEMENT 04/04/2023 VASECTOMY Social History[1] Family History Problem Relation Age of Onset Stroke Father Heart disease Father Coronary artery disease Father Diabetes Sister Coronary artery disease Brother Allergies[2] Outpatient Medications as of 07/14/2024 Medication Sig albuterol 90 mcg/actuation inhaler Inhale 2 (two) puffs every 6 (six) hours as needed for shortness of breath or wheezing . apixaban (Eliquis) 5 mg Tab 1 (one) tablet (5 mg total) by Per G Tube route 2 (two) times a day . apixaban (ELIQUIS) 5 mg Tab 1 (one) tablet (5 mg total) by Per G Tube route 2 (two) times a day . budesonide (PULMICORT) 0.5 mg/2 mL nebulizer solution Take 2 mL (0.5 mg total) by nebulization daily . celecoxib (ELYXYB) 120 mg/4.8 mL (25 mg/mL) Soln Take 120 mg per G-tube daily . famotidine (PEPCID) 20 MG tablet Take 1 (one) tablet (20 mg total) by mouth 2 (two) times a day . fluticasone propionate (FLONASE) 50 mcg/actuation nasal spray Instill 2 (two) sprays into each nostril daily . formoterol fumarate (PERFOROMIST) 20 mcg/2 mL nebulizer solution Take 2 mL (20 mcg total) by nebulization . glucose 4 g chewable tablet Chew and Swallow 4 (four) tablets (16 g total) as needed for low blood sugar . Lactobacillus rhamnosus GG (CULTURELLE) 10 billion cell capsule Dick (more content not included)... [facility] 07-06-2024 Miscellaneous Notes Dc via wc to private car in stable condition. AVS presented to patient and spouse, including follow-up appointments to attend, educational handout on admitting diagnosis and new medications prescribed. Denies questions/concerns related to this RN's teaching. IV removed angio intact, tele leads removed. Patient gathering belongings, this RN instructed patient to use call light when ready to leave and be wheeled out, states compliance with instructions given. Assessment unchanged other than flowsheet exceptions. Anticipating discharge. Spouse remains at bedside, pt dozing between care, denies needs or discomfort. Pt dozing between care, at bedside, denies discomfort or needs. See flowsheet assessment. No change noted from previous assessment by this RN unless otherwise detailed in coordinating flow sheets. Patient denies any needs at this time. No change noted from previous assessment by this RN unless otherwise detailed in coordinating flow sheets. Patient denies any needs at this time. Patient reports independence with mobility and ADLs denies need for therapy evaluations, will sign off 07/05/24 1105 Patient Interview Type of Readmission Unplanned Who is interview with? Patient What brought you back to the hospital? Cough;Shortness of breath When did you start having problems after discharge? > 14 Days Previous Discharge Disposition? Home (with or without home services) Admitted from Home Setting Were you able to reach out to your provider before coming back to the hospital? No If no, what stopped you from reaching out? [place] needed to be seen and went to ED or urgent care on my own Who helped you after discharge? Spouse/significant other Did you/caregiver receive education re: discharge needs (ie: teaching on L/D/A, injection teaching, medications, home health, etc.) Yes Did someone review your final discharge instructions (After Visit Summary) with you/caregiver at your last discharge? Yes Did you/caregiver understand your discharge instructions and how to take care of yourself at home? Yes Were you sent home on new medications? Yes Were you able to get them filled? Yes Did you have any problems taking them as prescribed? No Did you/caregiver understand how to take all your medications? Yes Quality Was this hospitalization related to a potential discharge planning gap? No Reviewed chart and met with patient. Patient is a 30 day readmission. Patient gives minimal answers to questions asked. Patient recently discharged from [facility]. Patient states that he was admitted for the same thing and states that once I get pneumonia I have a hard time getting rid of it. Patient does have a history of tongue cancer and receives enteral nutrition at home. Patient's spouse assists in patient's care. He does wear home O2 at night, but is unable to remember home O2 provider. Patient was prescribed new scripts at last discharge and states that he was able to get them without issue. He does report medication compliance. Patient states that he attends medical appointments. He denies all current needs or questions. Will continue to monitor in case that future needs arise. PT consult received and chart reviewed. Pt was admitted due to PNA of both lower lobes due to infectious organism. Pt states he remains independent and does not require a formal PT evaluation. Will sign off. Tube feed completed. Flushed with 40ml water and tube disconnected from patient. Pt is resting in bed. Pt denies complaints at this time. Tube feed is running. Assessment remains unchanged from previous. Call light is within reach. Pt is resting in bed. Pt denies needs at this time. Assessment remains unchanged from previous. Tube feed is running per pt's home pump. Call light is within reach. Patient and requested to use home feeding supplements (2 Completes and 3 High Calorie Boost) in place of jevity, reporting this works best for him. Tube feed started at 94ml/hr, to run for 12 hours. On admission to [facility] 2ND FLOOR, from ED a dual RN initial assessment of skin condition was performed by Sarah Diaz RN and Varsha Walker LPN. Skin Assessment: Skin within defined limits:Yes Amador Score: 21 LDA Added:No Sarah Diaz RN documented in this encounter [facility] 07-06-2024 Nurse Note Dc via wc to private car in stable condition. [facility] 07-06-2024 Nurse Note AVS presented to patient and spouse, including follow-up appointments to attend, educational handout on admitting diagnosis and new medications prescribed. Denies questions/concerns related to this RN's teaching. IV removed angio intact, tele leads removed. Patient gathering belongings, this RN instructed patient to use call light when ready to leave and be wheeled out, states compliance with instructions given. [facility] 07-06-2024 Hospital Discharge instructions Klaudia Vaughan RN - 07/06/2024 4:35 PM EDT Resume prehospital activity as tolerated Klaudia Vaughan RN - 07/06/2024 4:35 PM EDT Resume prehospital g tube feeds and flushes as tolerated Klaudia Vaughan RN - 07/06/2024 4:35 PM EDT Return or worsening of symptoms. In the event of an emergency, call 911 or go to the nearest ER. The following attachments cannot be sent through Care Everywhere.Pneumonia ([place])Levofloxacin ([place])Fluconazole ([place])documented in this encounter [facility] 07-06-2024 History of Present illness Narrative Pharmacy to Dose - Vancomycin Progress Note PATIENT: Amy Sun Room/Bed: [facility] Indication: PNA AUC Goal: 400 - 600 Current Dose: 1000 mg IV every 8 hours Calculated PK/PD Parameters t : 6.8 hrs AUC: 500 AKASH: 1 Most Recent Labs: VANCOMYCIN, TROUGH Date Value Ref Range Status 07/06/2024 19.8 15.0 - 20.0 UG/ML Final 07/05/2024 14.6 (L) 15.0 - 20.0 UG/ML Final 06/15/2023 12.1 (L) 15.0 - 20.0 UG/ML Final CREATININE SERUM Date Value Ref Range Status 07/06/2024 0.63 (L) 0.70 - 1.20 MG/DL Final 07/05/2024 0.69 (L) 0.70 - 1.20 MG/DL Final 07/04/2024 0.79 0.70 - 1.20 MG/DL Final BUN Date Value Ref Range Status 07/06/2024 35 (H) 7 - 20 MG/DL Final 07/05/2024 40 (H) 7 - 20 MG/DL Final 07/04/2024 40 (H) 7 - 20 MG/DL Final Estimated Creatinine Clearance: 118 mL/min (A) (by C-G formula based on SCr of 0.63 mg/dL (L)). Assessment and Plan: Based upon review of laboratory results and available patient information, I will take the following action(s): No changes to Vancomycin dose or dosing interval are indicated at this time. A Pharmacist will continue to follow and order drug levels and adjust dosing as clinically appropriate. If necessary, I have modified the orders in IHIS to reflect the above plan. Please feel free to contact me with any further questions. Luciana Dueñas RP,PharmD, [facility] Phone: [phone] Date/Time: 07/06/2024 4:28 PM Follow up completed. List of private pay nursing provided to pt's spouse. No other questions or concerns voiced regarding home going. Social work is available if needs arise. Pharmacy to Dose - Vancomycin Progress Note PATIENT: Amy Sun Room/Bed: [facility] Indication: PNA AUC Goal: 400 - 600 Current Dose: 1000 mg IV every 8 hours Calculated PK/PD Parameters t : 6.0 hrs AUC: 434 AKASH: 1 Most Recent Labs: VANCOMYCIN, TROUGH Date Value Ref Range Status 07/05/2024 14.6 (L) 15.0 - 20.0 UG/ML Final 06/15/2023 12.1 (L) 15.0 - 20.0 UG/ML Final 05/26/2023 12.4 (L) 15.0 - 20.0 UG/ML Final CREATININE SERUM Date Value Ref Range Status 07/05/2024 0.69 (L) 0.70 - 1.20 MG/DL Final 07/04/2024 0.79 0.70 - 1.20 MG/DL Final 06/17/2023 0.58 (L) 0.70 - 1.20 MG/DL Final BUN Date Value Ref Range Status 07/05/2024 40 (H) 7 - 20 MG/DL Final 07/04/2024 40 (H) 7 - 20 MG/DL Final 06/17/2023 26 (H) 7 - 20 MG/DL Final Estimated Creatinine Clearance: 108 mL/min (A) (by C-G formula based on SCr of 0.69 mg/dL (L)). Assessment and Plan: Based upon review of laboratory results and available patient information, I will take the following action(s): No changes to Vancomycin dose or dosing interval are indicated at this time. A Pharmacist will continue to follow and order drug levels and adjust dosing as clinically appropriate. If necessary, I have modified the orders in IS to reflect the above plan. Please feel free to contact me with any further questions. Luciana Dueñas RPh,PharmJackie, [facility] Phone: [phone] Date/Time: 07/05/2024 4:01 PM 07/05/24 1318 Psychosocial Assessment SW Psychosocial Assessment Completed Yes Information Source Information Source spouse Information Source Name Christa Sun Information Source Number [phone] Transportation Within the past 12 months, has lack of transportation kept you from medical appointments, getting your medicines, non-medical meetings or appointments, work, or from getting things that you need? N Housing/Utilities Do you have housing? Y Are you worried about losing your housing? N Within the past 12 months, have you or your family members you live with been unable to get utilities (heat, electricity) when it was really needed? N Food Insecurity Within the past 12 months, did you worry that your food would run out before you got money to buy more? N Within the past 12 months, did the food you bought just not last and you didn t have money to get more? N Interpersonal Safety Do you feel physically and emotionally safe where you currently live? Pt Unable Within the past 12 months, have you been hit, slapped, kicked or otherwise physically hurt by someone? Pt Unable Within the past 12 months, have you been humiliated or emotionally abused in other ways by your partner or ex-partner? Pt Unable Substance Use Past or current substance use by patient Denied Employment/Financial Employed? No Employment/Financial Concerns no Source Of Income social security Financial Concerns none Resources Resources Offered No Abuse Screen Do You Feel Unsafe at Home, Work or School? unable to assess Patient Coping/Stress Concerns Patient Coping/Stress Concerns No Patient Personal Strengths strong support system Emotional/Psychological Mental Health Conditions/Symptoms depression Previous Mental Health Treatment none Referral received. Chart reviewed. Assessment completed with spouse, pt asleep during assessment. Pt lives at home in a single story home. He does not use dme for mobility. He is independent with bathing and dressing. Spouse provides all transportation. He is current with his PCP. No financial concerns. He can afford his medication. He does have depression, treated with medication. Spouse is requesting list of private pay nursing. No other needs for dc. ADMINISTRATIVE DIETITIAN to follow. Discharge Plan Following for needs. DAILY PROGRESS NOTE Admit Date: 07/04/2024 Date of Evaluation: 1:19 AM [facility] LOS: 0 days Chief complaint: Pneumonia of both lower lobes due to infectious organism SUBJECTIVE: Patient seen and examined. Chart, medications, labs all reviewed. Patient denies all reports of Headache Blurred Vision, Dizziness, Fever, Chills, Nausea, Vomiting, Diarrhea, or Pain. Discussed plan . Trial on room air. He does not wear 02 09/09 at home. Cultures should be back tomorrow. Dicussed dc plan Vital Signs: Blood pressure 99/62, pulse 72, temperature 98.4 F (36.9 C), temperature source Oral, resp. rate 18, height 1.854 m (6' 1), weight 83.9 kg (185 lb), SpO2 98%. O2 Sat (%): 98 % (07/06 799) O2 Device: nasal cannula (07/06 799) Flow (L/min): 3 (07/06 799) Intake and Output: No intake or output data in the 24 hours ending 07/05/24 1119 Daily Weight: Wt Readings from Last 3 Encounters: 07/04/24 83.9 kg (185 lb) 04/22/24 84.1 kg (185 lb 4.8 oz) 12/31/23 76.8 kg (169 lb 4.8 oz) PHYSICAL EXAM: General: Patient Awake. No acute distress. Cardiovascular: Regular rate and rhythm, without murmurs, rubs, or gallops. Respiratory: Bilateral Upper and Lower Lobes diminished with wheeze Abdomen: Soft, rounded, non-tender. Bowel sounds present x4 quadrants. No rebound. No organomegaly or masses noted upon deep palpation. Extremities: No edema, clubbing or cyanosis, pulses palpable 2+ distally. Skin: Warm, Dry, Intact. Neuro: Cranial nerves II-XII grossly intact. No focal deficits Diagnostics: CBC Lab Results Component Value Date/Time WBC 8.1 07/05/2024 04:43 AM WBC 6.5 07/04/2024 10:55 AM WBC 9.5 08/26/2023 03:08 PM HGB 12.9 (L) 07/05/2024 04:43 AM HGB 15.7 07/04/2024 10:55 AM HGB 14.8 08/26/2023 03:08 PM HCT 39.4 (L) 07/05/2024 04:43 AM HCT 47.7 07/04/2024 10:55 AM HCT 43.9 08/26/2023 03:08 PM PLATELET 128 (L) 07/05/2024 04:43 AM PLATELET 160 07/04/2024 10:55 AM PLATELET 235 08/26/2023 03:08 PM Chemistry Lab Results Component Value Date/Time GLUCOSE 242 (H) 07/05/2024 04:43 AM GLUCOSE 124 (H) 07/04/2024 10:55 AM GLUCOSE neg 08/07/2023 12:28 PM GLUCOSE 163 (H) 06/17/2023 04:45 AM GLUCOSE 137 (H) 05/11/2023 12:10 PM GLUCOSE 165 (H) 05/11/2023 05:56 AM GLUCOSE 171 (H) 05/11/2023 12:07 AM BUN 40 (H) 07/05/2024 04:43 AM BUN 40 (H) 07/04/2024 10:55 AM BUN 26 (H) 06/17/2023 04:45 AM CREATSERUM 0.69 (L) 07/05/2024 04:43 AM CREATSERUM 0.79 07/04/2024 10:55 AM CREATSERUM 0.58 (L) 06/17/2023 04:45 AM SODIUM 149 (H) 07/05/2024 04:43 AM SODIUM 154 (H) 07/04/2024 10:55 AM SODIUM 139 06/17/2023 04:45 AM POTASSIUM 3.9 07/05/2024 04:43 AM POTASSIUM 3.9 07/04/2024 10:55 AM POTASSIUM 4.0 06/17/2023 04:45 AM CHLORIDE 107 07/05/2024 04:43 AM CHLORIDE 106 07/04/2024 10:55 AM CHLORIDE 107 06/17/2023 04:45 AM CO2 30 07/05/2024 04:43 AM CO2 36 (H) 07/04/2024 10:55 AM CO2 31 (H) 06/17/2023 04:45 AM ALBUMIN 3.7 07/05/2024 04:43 AM ALBUMIN 3.1 (L) 06/17/2023 04:45 AM ALBUMIN 3.2 (L) 06/16/2023 04:23 AM CALCIUM 9.2 07/05/2024 04:43 AM CALCIUM 8.9 06/17/2023 04:45 AM CALCIUM 8.6 06/16/2023 04:23 AM PHOSPHORUS 2.9 06/17/2023 04:45 AM PHOSPHORUS 2.7 06/16/2023 04:23 AM PHOSPHORUS 3.1 05/11/2023 05:16 AM MAGNESIUM 2.1 07/05/2024 04:43 AM MAGNESIUM 2.1 06/17/2023 04:45 AM MAGNESIUM 2.3 06/16/2023 04:23 AM COAG Lab Results Component Value Date/Time PT 15.3 (H) 06/14/2023 05:15 PM PT 16.0 (H) 05/26/2023 04:23 AM PT 13.9 05/24/2023 07:30 PM INR 1.20 (H) 06/14/2023 05:15 PM INR 1.27 (H) 05/26/2023 04:23 AM INR 1.05 05/24/2023 07:30 PM PTT 32.0 06/14/2023 05:15 PM PTT 26.8 05/24/2023 07:30 PM ABG Lab Results Component Value Date/Time HCO3 36.8 (H) 05/24/2023 07:40 PM HCO3 31.9 (H) 05/09/2023 10:30 AM HCO3 33.2 (H) 04/20/2023 04:43 AM PCO2 53 (H) 05/24/2023 07:40 PM PCO2 47 (H) 05/09/2023 10:30 AM PCO2 50 04/20/2023 04:43 AM PO2 92 05/24/2023 07:40 PM PO2 76 (L) 05/09/2023 10:30 AM Other notable labs: Relevant microbiologic cultures: Lab Results Component Value Date RESULTCULT NO GROWTH <24 HRS 07/04/2024 RESULTCULT NO GROWTH <24 HRS 07/04/2024 IMPRESSION /PLAN: Principal Problem: Pneumonia of both lower lobes due to infectious organism- hcap atb, nebs. Iv steroid. Follow cultures. Trial on room air today. Strict npo. Active Problems: Elevated troponin- cycle enzymes. Denies cp. Echo. Dysphagia- peg tube dependent. 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 T2 N1 G3, stage IIB, squamous cell carcinoma Patient that time was treated with chemoradiation therapy. [facility]. S/P percutaneous endoscopic gastrostomy (PEG) tube placement- cs nutrition for tube feeding. Acute respiratory failure with hypoxia- 84% on room air. He does have 02 at night only. Treat copd/pna. COPD exacerbation- atb. Nebs. Iv steroids Pulmonary lesion, right- follow with dr bojorquez Gastroesophageal reflux disease Dependence on nocturnal oxygen therapy 2lnc Hypernatremia- 2/2 dehydration, nutrition cs. D5w/0.45ns ivf. History of pulmonary embolism- on eliquis Oral prerna- POA- diflucan Code Status Full Code I personally spent 8 minutes in the management of this patient, the details of my visit are listed in my documentation above. Cosigned by Angela Fitch DO at 07/06/2024 11:16 AM EDT Associated attestation - Angela Fitch, DO - 07/06/2024 11:16 AM EDT Patient seen and examined independently 07/05/24. Meds, labs, and radiographs reviewed. Lungs diminished and heart tones regular on exam. CRP 6.8 Na 149 Procal 0.07 MRSA NEG. Fungitell ordered. 07/05/24 Echo reviewed- Conclusion Limited echocardiogram Normal RV/LV size and function ejection fraction 65-70%. Grade 1 diastolic dysfunction Normal atrial sizes Incidental atrial septal aneurysm noted usually benign finding. Possible PFO by color flow. No significant valvular or pericardial abnormality No pulmonary hypertension Echocardiogram similar to that of 12/2023. Afebrile. 07/04/24 Blood cx pending. Cardio consult. I agree with assessments and plan of care. All questions and concerns addressed w/ patient at BS in regard to plan of care. I personally spent >50% of the total time spent of 20 min on this date's billable encounter including all of the MDM for this encounter. [facility] SPEECH-LANGUAGE PATHOLOGY Acute Care Speech-Language Pathology Screen 07/05/2024 Chart review completed; full screen not indicated at this time. Patient is currently tube dependent and does not consume anything by mouth. Patient has received speech therapy in the past due to long hx of dysphagia s/p head and neck cancer and radiation. If need arises, please place consult to Speech Therapy. Sofie Bonds MA, [facility]-SOFTWARE APPLICATION TESTER Speech-Language Pathologist ENTERAL FEEDING FOLLOW UP Nutrition Assessment Mr. Amy Sun is a 73 y.o. male admitted to [facility] for: 1. Pneumonia of both lungs due to infectious organism, unspecified part of lung 2. Hypoxemia 3. Pharyngoesophageal dysphagia 4. Xerostomia due to radiotherapy 5. Presence of externally removable percutaneous endoscopic gastrostomy (PEG) tube 6. Hyperglycemia Indication for initiating enteral feeding: Head and neck cancer with dysphagia, PEG with home tube feeds. Subjective assessments / comments: Patient admitted with pneumonia. History of head and neck cancer with PEG/AKASH-MATTHEW followed by dietitian at [facility]. Spoke to patient's - she brought in formula from home - uses Complete 1.5 ( 250 ml) x 2 over night at 94 ml/hr x 12 hrs. Boost VHC (237 ml) 3-4 containers /day depending on his weight. Is to try to give extra water but has intolerance - get 16 oz/day plus 30 ml/ after each bolus feed. This provides: 4021-5576 kcal, 102-120 gm protein, EN water 857 ml + 570-600 ml (1427 ml free water). Sodium elevated at 154 upon admission - IVF D5 with 1/2 NS at 100 ml/hr now Na 149. Labs: Glucose elevated with steroids at 242 - suggest removing dextrose from IVF. Vit D 47.5 WNL. Anthropometrics: Ht Readings from Last 1 Encounters: 07/04/24 1.854 m (6' 1) Wt Readings from Last 10 Encounters: 07/04/24 83.9 kg (185 lb) 04/22/24 84.1 kg (185 lb 4.8 oz) 12/31/23 76.8 kg (169 lb 4.8 oz) 09/01/23 75.6 kg (166 lb 9.6 oz) 08/26/23 76.9 kg (169 lb 9.6 oz) 08/07/23 76.7 kg (169 lb) 06/17/23 74 kg (163 lb 2.3 oz) 06/04/23 73.6 kg (162 lb 4.8 oz) 06/02/23 75 kg (165 lb 6.4 oz) 05/26/23 75.4 kg (166 lb 4.8 oz) [place] body weight: 79.9 kg (176 lb 2.4 oz) Adjusted ideal body weight: 81.5 kg (179 lb 11 oz) Body mass index is 24.41 kg/m . Classified as: Healthy range Recent weight loss: No Estimated Energy Requirements: Calories: 1380-8189 kcal (30-35 kcal/kg 81.6 kg) Protein: 98 gm/day (1.2 gm/kg 81.6) Fluids: 1 mL/kcal of EN - adjust per provider rec to meet fluid needs EN Rec Enteral feeding Complete Peptide 1.5 94 ml/hr x 12 hrs, Boost VHC 3-4 containers/day (237 ml) bolus Total mL fluids from EN 60 ml (30 ml before and after bolus) 180 ml, 857 ml EN formula = 1037 ml Total kcal from EN 6115-7612 kcal (29-35 kcal/kg) Protein from EN 102-120 gm (1.25-1.5 gm/kg) Water flush 30 ml before and after each bolus (180 ml ) 1000 ml free water as tolerated (80 ml every 2 hrs) 960 ml Nutrition Related Labs: Lab Results Component Value Date GLUCOSE 242 (H) 07/05/2024 GLUCOSE 124 (H) 07/04/2024 GLUCOSE neg 08/07/2023 HGBA1C 5.9 05/10/2023 SODIUM 149 (H) 07/05/2024 POTASSIUM 3.9 07/05/2024 MAGNESIUM 2.1 07/05/2024 PHOSPHORUS 2.9 06/17/2023 ALBUMIN 3.7 07/05/2024 PREALBUMIN 17.2 (L) 04/19/2023 CALCIUM 9.2 07/05/2024 TP 6.6 07/05/2024 BUN 40 (H) 07/05/2024 CREATSERUM 0.69 (L) 07/05/2024 AST 35 07/05/2024 CRP 6.8 07/05/2024 HGB 12.9 (L) 07/05/2024 HCT 39.4 (L) 07/05/2024 B12 836 05/11/2023 [id number] 47.5 07/04/2024 FOLATE 12.7 05/11/2023 IRON 43 (L) 05/11/2023 Nutrition-Related History: Current Diet Orders Procedures DIET NPO AND TUBE FEEDING with meds Standing Status: Standing Number of Occurrences: 1 NPO Meds:: with meds No Known Allergies Past Medical History: Diagnosis Date Chronic kidney disease (CKD), stage I GERD (gastroesophageal reflux disease) Hepatic steatosis Hyperlipidemia Tongue cancer Stage IIB, T2, N1, 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 Chemo/RT with Cisplatin and RT and Ethyol. RT completed 02/28/09. Past Surgical History: Procedure Laterality Date EGD W/ PLACEMENT OR REPLACEMENT PEG 04/04/2023 NECK SURGERY 2008 for cancer Nutrition Diagnosis NI 3.1 Inadequate fluid intake related to dysphagia as evidenced by unable to tolerate adequate free water via PEG. NC 1.1 Difficulty swallowing related to tongue cancer history as evidenced by PEG for nutrition support, swallow evaluations Interventions Tube feeding per home regimen - has brought in formula and managing. Complete Peptide 1.5 ( 250 ml) x 2 over night at 94 ml/hr x 12 hrs. Add 80 ml water every 2 hrs to provide 960 ml additional water with IVF discontinued Boost VHC (237 ml) 3-4 containers /day depending on his weight. Flush with 30 ml water before and after each bolus Currently IVF - recommend removing Dextrose with elevated glucose on Solumedrol. Will need additional free water as tolerated via PEG or receive IVF at home Enteral Monitoring: Elevate head of bed 30-45 degrees while feeding Reassess goal feed rate on an ongoing basis Daily lab draws: Phosphorus Magnesium Sodium Potassium Blood Glucose Patient at high nutritional risk. Reassess 3 x week. Available by consult. Nutrition Goals: Meet estimated nutrition requirements through enteral nutrition support Pt to tolerate enteral nutrition Maintain current weight and prevent weight loss Preserve lean body mass Prevent nutrient deficiencies Maintain electrolyte and fluid balance Monitor patient weight, labs, and tolerance to enteral nutrition Daily weights @ 4 AM I/O documentation of all fluids, EN, and PO intake Leia Glover RD, LD Registered Dietitian, Licensed Dietitian 07/05/24 INITIAL NUTRITION ASSESSMENT AND ENTERAL FEEDING RECOMMENDATION Mr. Amy Sun is a 73 y.o. male was admitted to [facility] for: 1. Pneumonia of both lungs due to infectious organism, unspecified part of lung 2. Hypoxemia 3. Pharyngoesophageal dysphagia 4. Xerostomia due to radiotherapy 5. Presence of externally removable percutaneous endoscopic gastrostomy (PEG) tube 6. Hyperglycemia Nutrition Assessment Subjective assessment / comments: Referral received for tube feeding assessment needs. Pt admitted due to coughing up secretions and choking on them per 's as noted from ED and H & P note. Pt with hx of tongue & throat cancer and typically does not swallow. Pt with PEG tube in which he uses 52 ml Boost. Pt noted to have neck surgery for cancer 2008. MST O. Noted no significant weight loss.Labs reviewed: Sed rate 31; CRP 5.4; Na 154; BUN/Cr 40/0.79. TF recs will be provided below. Nutrition-Related Hx: Appetite: Unknown as has PEG Nausea: N/A Vomiting: N/A Diarrhea: N/A Respiratory support:3 liters NC Last Bowel Movement: Unknown Malnutrition Screening Tool: Nutrition Risk Screening (MST) Have you recently lost weight without trying?: 0- no Have you been eating poorly because of decreased appetite?: 0- No (tube feeds) Malnutrition Screening Tool Score: 0 Nutrition: 3-->adequate Patient Reported Diet: no oral intake Current Appetite: good Who Prepares Meals: self and spouse Use of Supplements: supplemental drinks Nutrition Support: tube feeding History of Eating Disorder: none Anthropometrics: Ht Readings from Last 1 Encounters: 07/04/24 1.854 m (6' 1) Wt Readings from Last 15 Encounters: 07/04/24 83.9 kg (185 lb) 04/22/24 84.1 kg (185 lb 4.8 oz) 12/31/23 76.8 kg (169 lb 4.8 oz) 09/01/23 75.6 kg (166 lb 9.6 oz) 08/26/23 76.9 kg (169 lb 9.6 oz) 08/07/23 76.7 kg (169 lb) 06/17/23 74 kg (163 lb 2.3 oz) 06/04/23 73.6 kg (162 lb 4.8 oz) 06/02/23 75 kg (165 lb 6.4 oz) 05/26/23 75.4 kg (166 lb 4.8 oz) 05/09/23 76.7 kg (169 lb) 04/22/23 79 kg (174 lb 3.2 oz) 04/20/23 80.2 kg (176 lb 12.8 oz) 04/08/23 78.5 kg (173 lb) 04/02/23 75.3 kg (166 lb) [place] body weight: 79.9 kg (176 lb 2.4 oz) Adjusted ideal body weight: 81.5 kg (179 lb 11 oz) Body mass index is 24.41 kg/m . Classified as: Healthy range Recent weight loss: No Nutrient Needs: Estimated calorie needs: 0300-1082 kcal(18-23 kcal/kg IBW) Estimated protein needs: 84-96 gms(1-1.15 gm/kg IBW) Estimated fluid needs: 7900-5825 ml(20-25 ml/kg IBW, or per provider) EN Rec Enteral feeding Jevity 1.5 Goal rate 53 mL/hr Duration Continuous Total mL fluids from EN 967 Total kcal from EN 1908 Protein from EN 81 grams Water flush 170 mL every 4 hours TOTAL KCAL 1905 TOTAL PROTEIN 81 grams TOTAL mL FLUIDS 1986 Fluid Assessment: Net IO Since Admission: No IO data has been entered for this period [07/04/24 1612] 1 L fluid = 1 kg body weight Current Diet Orders Procedures DIET NPO with meds Via peg tube Standing Status: Standing Number of Occurrences: 1 NPO Meds:: with meds No Known Allergies Nutrition Related Laboratory Values: Lab Results Component Value Date GLUCOSE 124 (H) 07/04/2024 GLUCOSE neg 08/07/2023 GLUCOSE 163 (H) 06/17/2023 HGBA1C 5.9 05/10/2023 SODIUM 154 (H) 07/04/2024 POTASSIUM 3.9 07/04/2024 MAGNESIUM 2.1 06/17/2023 PHOSPHORUS 2.9 06/17/2023 CALCIUM 8.9 06/17/2023 ALBUMIN 3.1 (L) 06/17/2023 PREALBUMIN 17.2 (L) 04/19/2023 TP 6.2 (L) 06/17/2023 BUN 40 (H) 07/04/2024 CREATSERUM 0.79 07/04/2024 AST 30 06/17/2023 BILIRUBIN neg 08/07/2023 ALT 39 06/17/2023 CRP 5.4 07/04/2024 HGB 15.7 07/04/2024 HCT 47.7 07/04/2024 IRON 43 (L) 05/11/2023 WBC 6.5 07/04/2024 RBC 5.07 07/04/2024 HCO3 36.8 (H) 05/24/2023 B12 836 05/11/2023 [id number] 47.5 07/04/2024 FOLATE 12.7 05/11/2023 CHOLESTEROL 161 08/09/2022 TRIG 93 06/17/2023 HDL 51 08/09/2022 LDLCALC 81 08/09/2022 PMH & PSH: Past Medical History: Diagnosis Date Abnormal glucose Bilateral leg edema BPH without urinary obstruction Chronic kidney disease (CKD), stage I Degenerative joint disease Enthesopathy Essential hypertension, benign Fatigue Former smoker 2 PPD x46 years, quite 09/19/2008 GERD (gastroesophageal reflux disease) Hepatic steatosis Hyperlipidemia Impotence of organic origin Insomnia Obesity Testicular hypofunction Tongue cancer Stage IIB, T2, N1, 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 Chemo/RT with Cisplatin and RT and Ethyol. RT completed 02/28/09. Past Surgical History: Procedure Laterality Date EGD W/ PLACEMENT OR REPLACEMENT PEG 04/04/2023 NECK SURGERY 2008 for cancer INGUINAL HERNIA REPAIR 1988 REMOVAL CATARACT (PEM) Bilateral VASECTOMY Nutrition Diagnosis NI-2.1 Inadequate oral intake related to decreased ability to consume sufficient energy as evidenced by hx of tongue & throat cancer and PEG placed for nutritional needs. Interventions Provide Jevity 1.5 at 30 mL/hr and advance by 20 mL q6-8h if well tolerated until goal rate of 53 mL/hr is reached Provide 170 mL free water flush q4h Monitoring and Evaluation Enteral Monitoring: Elevate head of bed 30-45 degrees while feeding Check gastric residuals every 4 hours when initiating feeding. May check every 6-8 hours once goal rate is achieved Hold gastric feeds for residuals more than 500 mL. Avoid holding feeds for residuals < 500 mL without other signs of intolerance and consider a prokinetic agent for GRV volumes 250-500 mL If unable to meet caloric goals after 7-10 days, consider initiating supplemental parenteral nutrition Reassess goal feed rate on an ongoing basis Daily lab draws: Phosphorus Magnesium Sodium Potassium Blood Glucose Every three days draw triglyceride lab Do not put blue dye or coca cola (or similar products) into the feeding tube Patient at high nutritional risk. Reassess 3 x week. Available by consult. Nutrition Goals: Meet estimated nutrition requirements through enteral nutrition support Pt to tolerate enteral nutrition Maintain current weight and prevent weight loss Preserve lean body mass Prevent nutrient deficiencies Maintain electrolyte and fluid balance Monitor patient weight, labs, and tolerance to enteral nutrition Daily weights @ 4 AM I/O documentation of all fluids, EN, and PO intake MARTINE Valentine Registered Dietitian, Licensed Dietitian 07/04/24 Pharmacy to Dose - Vancomycin Progress Note PATIENT: Amy Sun Room/Bed: [facility] Indication: PNA AUC Goal: 400 - 600 Initial Dose: 1000 mg IV every 8 hours Next Level: 07/05 1500 Estimated PK/PD Parameters t : 7.4 hours AUC: 563 AKASH: 1 Time to > 90% SS: 24.8 hours Most Recent Labs: CREATININE SERUM Date Value Ref Range Status 07/04/2024 0.79 0.70 - 1.20 MG/DL Final 06/17/2023 0.58 (L) 0.70 - 1.20 MG/DL Final 06/16/2023 0.50 (L) 0.70 - 1.20 MG/DL Final BUN Date Value Ref Range Status 07/04/2024 40 (H) 7 - 20 MG/DL Final 06/17/2023 26 (H) 7 - 20 MG/DL Final 06/16/2023 23 (H) 7 - 20 MG/DL Final Patient's CrCl is estimated to be 94 mL/min Assessment and Plan: Based upon review of laboratory results and available patient information, I will initiate vancomycin at the above dose and frequency. A Pharmacist will continue to follow and order drug levels and adjust dosing as clinically appropriate. If necessary, I have modified the orders in IS to reflect the above plan. Please feel free to contact me with any further questions. Junior Pena RPh,PharmD, [facility] Phone: [phone] Date/Time: 07/04/2024 2:30 PM documented in this encounter [facility] 07-06-2024 Nurse Note Assessment unchanged other than flowsheet exceptions. Anticipating discharge. [facility] 07-06-2024 Hospital course Narrative Discharge Summary Summary Time: 07/06/24 1:20 PM Name: Amy Sun Age: 73 y.o. Birthday: 1950 Admit Date: 07/04/2024 10:18 AM Discharge Date: 07/06/2024 Discharge Diagnosis: Principal Problem: Pneumonia of both lower lobes due to infectious organism- hcap atb, nebs. Iv steroid. Follow cultures. on room air Strict npo. Dc with atb/steroid. Active Problems: Elevated troponin- cycle enzymes. Denies cp. Echo noted. Cardio cs. Can do at least 4 METS without sx. On Eliquis for hx PE. Echo 07/05/24 shows EF 65-70%, no WMA, grade 1 diastolic dysfunction, incidental atrial septal aneurysm (usually benign), possible PFO. On statin and ARB. Lipid 08/09/22: Total 161. TG 146. HDL 51. LDL 81. -30% of the population has a PFO, this is benign -Could consider outpatient stress test or CCTA to further evaluate as an outpatient due to family history of 3 sisters who of MIs in their 50's Per cardio -This is likely a type II NSTEMI due to demand ischemia Dysphagia- peg tube dependent. 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 T2 N1 G3, stage IIB, squamous cell carcinoma Patient that time was treated with chemoradiation therapy. [facility]. S/P percutaneous endoscopic gastrostomy (PEG) tube placement- cs nutrition for tube feeding. Acute respiratory failure with hypoxia- 84% on room air. He does have 02 at night only. Treat copd/pna. COPD exacerbation- atb. Nebs. Iv steroids Pulmonary lesion, right- follow with dr bojorquez Gastroesophageal reflux disease Dependence on nocturnal oxygen therapy 2lnc Hypernatremia- 2/2 dehydration, nutrition cs.discussed increasing free h20 History of pulmonary embolism- on eliquis Oral prerna- POA- diflucan CT abd/pelvis shows 3.1 cm infrarenal AAAs, similar to prior exam. Brief Summary of Hospital Course: Patient presented with increased shortness of breath, hypoxia and elevated troponin. He was treated with broad-spectrum antibiotics for pneumonia. His oxygen has been weaned off. He is feeling much better. Cardiology did see the patient in can follow up on an outpatient basis. Patient's cultures remain negative. He will complete 2 more days of antibiotics and a steroid taper. He will be discharged today. Consultants: cardiology Discharge Vital Signs: Blood pressure 109/71, pulse 59, temperature 98 F (36.7 C), temperature source Oral, resp. rate 16, height 1.854 m (6' 1), weight 83.9 kg (185 lb), SpO2 97%. O2 Sat (%): 97 % (07/06 1000) O2 Device: room air (07/06 1000) Flow (L/min): 2 (07/06 0404) Discharge Labs: Lab Results Component Value Date WBC 9.7 07/06/2024 HGB 12.8 (L) 07/06/2024 HCT 38.5 (L) 07/06/2024 PLATELET 124 (L) 07/06/2024 MCV 94.8 07/06/2024 @LASTMAGNESIUM(1D,2)@ Lab Results Component Value Date INR 1.20 (H) 06/14/2023 INR 1.27 (H) 05/26/2023 INR 1.05 05/24/2023 PT 15.3 (H) 06/14/2023 PT 16.0 (H) 05/26/2023 PT 13.9 05/24/2023 Lab Results Component Value Date CREATSERUM 0.63 (L) 07/06/2024 BUN 35 (H) 07/06/2024 SODIUM 145 07/06/2024 POTASSIUM 4.2 07/06/2024 CHLORIDE 107 07/06/2024 CO2 30 07/06/2024 Lab Results Component Value Date SPGRVTYUR 1.020 07/04/2024 GLUCOSEURINE NEGATIVE 07/04/2024 BILIRUBINURI NEGATIVE 07/04/2024 KETONESURINE NEGATIVE 07/04/2024 NITRITESURIN NEGATIVE 07/04/2024 LEUKOCESTUR NEGATIVE 07/04/2024 WBCURINE NEGATIVE 06/14/2023 RBCURINE NEGATIVE 06/14/2023 BACTERIAURIN NEGATIVE 06/14/2023 PHYSICAL EXAM: General: Patient resting comfortably. Awake. No acute distress. Cardiovascular: Regular rate and rhythm, without murmurs, rubs, or gallops. Respiratory: Bilateral Upper and Lower Lobes without wheezes, rales, or rhonchi Abdomen: Soft, rounded, non-tender. Bowel sounds present x4 quadrants. No rebound. No organomegaly or masses noted upon deep palpation. Extremities: No edema, clubbing or cyanosis, pulses palpable 2+ distally. Skin: Warm, Dry, Intact. Discharge Medications: Medication List START taking these medications Fluconazole 150 MG TABS Commonly known as: DIFLUCAN Take 1 tablet by mouth daily for 7 days. levoFLOXacin 750 MG TABS Commonly known as: LEVAQUIN Take 1 tablet by mouth daily for 3 days. CONTINUE taking these medications Acetaminophen 325 MG tablet Commonly known as: TYLENOL Albuterol (2.5 MG/3ML) 0.083% inhalation solution Commonly known as: PROVENTIL Take 3 mL by nebulization every 6 hours as needed for Shortness of Breath. apixaban 5 MG TABS Commonly known as: ELIQUIS Take 1 tablet by mouth every 12 hours. Boost [facility] LIQD budesonide 0.5 MG/2ML nebulizer suspension Commonly known as: PULMICORT Inhale 2 mL 2 times daily. GARGLE, RINSE MOUTH AFTER USE culturelle CAPS capsule Doxazosin 4 MG TABS Commonly known as: CARDURA FIBER PO Finasteride 5 MG TABS Commonly known as: PROSCAR fluticasone 50 MCG/ACT SUSP nasal spray Commonly known as: FLONASE formoterol 20 MCG/2ML NEBU nebulizer solution Commonly known as: Perforomist Take 2 mL by nebulization 2 times daily. GARGLE, RINSE MOUTH AFTER USE Ipratropium-albuterol 0.5-2.5 (3) MG/3ML nebulizer solution Commonly known as: DUONEB Take 3 mL by nebulization every 4 hours as needed for Shortness of Breath, Wheezing, Cough or Breathing Treatment. Metoclopramide 5 MG TABS Commonly known as: REGLAN Nebulizer MISC 1 Device by Unknown route every 4 hours as needed. ondansetron 4 MG/5ML solution Commonly known as: ZOFRAN Pantoprazole [address] tablet DR Commonly known as: Protonix Take 1 tablet by mouth daily. predniSONE 10 MG TABS Commonly known as: DELTASONE Take 4 tablets by mouth for 3 days, then take 3 tablets by mouth for 3 days, then take 2 tablets by mouth for 3 days, 1 tablet for 3 days roflumilast 500 MCG TABS Commonly known as: Daliresp Take 1 tablet by mouth daily. Sertraline 25 MG TABS Commonly known as: Zoloft Take 1 tablet by mouth daily. SPACER FOR INHALER PRESCRIPTION Use with inhaler as directed SUMAtriptan 50 MG TABS Commonly known as: IMITREX Testosterone 25 MG/2.5GM (1%) GEL gel Place 2.5 g on skin daily. traMADol 50 MG TABS Commonly known as: Ultram Take 1 tablet by mouth every 4 hours as needed. Valsartan 160 MG TABS Commonly known as: Diovan Take 1 tablet by mouth daily. Check Blood pressure every day. If systolic blood pressure in > 130, then give 80 mg of valsartan (1/2 tablet), if < 130 then hold blood pressure medication. Yupelri 175 MCG/3ML SOLN Generic drug: Revefenacin Inhale 3 mL daily. STOP taking these medications furOSEmide 20 MG TABS Commonly known as: Lasix Promethegan 25 MG SUPP suppository Generic drug: Promethazine Rosuvastatin 5 MG TABS Commonly known as: Crestor Tamsulosin HCl 0.4 MG CAPS Commonly known as: FLOMAX Where to Get Your Medications These medications were sent to [id number] [place] [address] - [address] [facility] [address], [facility] [id number] Fluconazole 150 MG TABS levoFLOXacin 750 MG TABS predniSONE 10 MG TABS Discharge Activity: Resume pre-hospital activities as tolerated. Discharge Diet: Resume pre-hospital diet as tolerated. Discharge Follow-up: Ulices Clark DO [address] [facility] [id number] Follow up in 1 week(s) Barbie Ramires APRN-KATINA [address] [facility] [id number] Follow up in 3 week(s) Discharge Disposition: Patient will be discharged in stable condition to home Discharge Time: Including assessment, planning, and medication reconciliation was 10 minutes Gregg Brennan CNP completing Discharge Summary for collaborating physician. Please note portions of this note utilized [employer] dictation software, please excuse any typographical or grammatical errors Cosigned by Angela Fitch DO at 07/06/2024 6:19 PM EDT Associated attestation - Angela Fitch, DO - 07/06/2024 6:19 PM EDT Patient seen and examined independently 07/06/24. Meds, labs, and radiographs reviewed. Lungs diminished and heart tones regular on exam. CRP WNL 6.8 Na 145 -149 Procal 0.07 MRSA NEG. 07/05/24 Fungitell pending. 07/05/24 Echo reviewed- Conclusion Limited echocardiogram Normal RV/LV size and function ejection fraction 65-70%. Grade 1 diastolic dysfunction Normal atrial sizes Incidental atrial septal aneurysm noted usually benign finding. Possible PFO by color flow. No significant valvular or pericardial abnormality No pulmonary hypertension Echocardiogram similar to that of 12/2023. Afebrile. 07/04/24 Blood cx NEG TD. Cardio MICHELLE consult reviewed but PFO not explicitly addressed. OP Cardio Follow-up. Complete Atbx and Pred taper. I agree with assessments and plan of care. All questions and concerns addressed w/ patient at BS in regard to plan of care. I personally spent >50% of the total time spent of 31 min on this date's billable encounter including all of the MDM for this encounter. documented in this encounter [facility] 07-06-2024 Nurse Note Spouse remains at bedside, pt dozing between care, denies needs or discomfort. [facility] 07-06-2024 Consult note Associated Order (s): IP CONSULT TO CARDIOLOGY Chief Complaint Chief Complaint Patient presents with Cough Pt. Arrives with with c/o coughing up secretions and choking on them. Pt. 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 Assessment & Plan Elevated Troponin: No CP. Can do at least 4 METS without sx. On Eliquis for hx PE. Echo 07/05/24 shows EF 65-70%, no WMA, grade 1 diastolic dysfunction, incidental atrial septal aneurysm (usually benign), possible PFO. On statin and ARB. Lipid 08/09/22: Total 161. TG 146. HDL 51. LDL 81. -Reviewed echo results with pt and . -Due to hx of AAA with rupture in brother, would recommend he be screened for AAA outpatient. CT abd/pelvis shows 3.1 cm infrarenal AAAs, similar to prior exam. Would avoid fluoroquinolones if possible and control BP. No smoking. -30% of the population has a PFO, this is benign -Could consider outpatient stress test or CCTA to further evaluate as an outpatient due to family history of 3 sisters who of MIs in their 50's -Repeat lipid panel -This is likely a type II NSTEMI due to demand ischemia -------- HPI Amy Sun is a 73 y.o. male seen by [facility] cardiology today for elevated troponin. Per H&P from hospitalist team: Patient is a 73 y.o. male who presented to the hospital for evaluation of due to cough and congestion. Patient has a history of tongue and throat cancer. He does not swallow. History of recurrent aspiration pneumonia. He comes in stating it feels like his chest is congested and he has been coughing more. He is concerned that he has recurrence of his aspiration pneumonia. Ct chest showed multifocal infiltrates. Small nodules. Oxygen saturation was 84% on room air. He is now on 3 L of oxygen. Labs showed a sodium of 154 and a troponin of 34. Patient placed on broad-spectrum antibiotics. Oxygen has improved. Troponin initially 47, then 44, then normal at 20 at last check yesterday morning. He denies exertional sx. States he feels well and would like to go home. 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 (central serous retinopathy), bilateral Epiretinal membrane (ERM) of left eye 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 Multiple lung nodules on CT Dysphagia Pseudophakia of both eyes Severe protein-calorie malnutrition Tear film insufficiency Vitelliform lesion of macula Hyperopia of both eyes with astigmatism and presbyopia Xerostomia due to radiotherapy Leukocytosis Cough Fever Dry heaves Elevated troponin Failure to thrive in adult COPD (chronic obstructive pulmonary disease) with acute bronchitis Dysphagia Cough Squamous cell carcinoma of tongue Hyperglycemia Aspiration pneumonia S/P percutaneous endoscopic gastrostomy (PEG) tube placement COPD (chronic obstructive pulmonary disease) Aspiration into airway GERD (gastroesophageal reflux disease) Noncompliance Multifocal pneumonia Other hypotension Elevated alkaline phosphatase level Acute respiratory failure with hypoxia Benign hypertension Aspiration pneumonia of both lungs Leukocytosis BPH (benign prostatic hyperplasia) COPD exacerbation GERD (gastroesophageal reflux disease) HLD (hyperlipidemia) PNA (pneumonia) Centrilobular emphysema Cough with hemoptysis Mass of pleura Single subsegmental pulmonary embolism without acute cor pulmonale Chronic respiratory failure with hypoxia, on home oxygen therapy AAA (abdominal aortic aneurysm) Anxiety and depression Constipation Difficulty sleeping Erythrocytosis Secondary polycythemia Hyponatremia Left inguinal hernia Migraine without aura and without status migrainosus, not intractable Postnasal drip Venous insufficiency Acute hypoxemic respiratory failure Chronic obstructive pulmonary disease Aspiration into lower respiratory tract Pulmonary lesion, right Hypertension Edema of both lower extremities Nausea & vomiting Vomiting Pharyngoesophageal dysphagia Gastroesophageal reflux disease Vitreous floaters of both eyes Pulmonary embolus, right Pneumonia of both lower lobes due to infectious organism Dependence on nocturnal oxygen therapy Hypernatremia History of pulmonary embolism Oral prerna Past Medical History: Diagnosis Date Abnormal glucose Bilateral leg edema BPH without urinary obstruction Chronic kidney disease (CKD), stage I Degenerative joint disease Enthesopathy Essential hypertension, benign Fatigue Former smoker 2 PPD x46 years, quite 09/19/2008 GERD (gastroesophageal reflux disease) Hepatic steatosis Hyperlipidemia Impotence of organic origin Insomnia Obesity Testicular hypofunction Tongue cancer Stage IIB, T2, N1, 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 Chemo/RT with Cisplatin and RT and Ethyol. RT completed 02/28/09. Past Surgical History: Procedure Laterality Date EGD W/ PLACEMENT OR REPLACEMENT PEG 04/04/2023 NECK SURGERY 2008 for cancer INGUINAL HERNIA REPAIR 1988 REMOVAL CATARACT (PEM) Bilateral VASECTOMY Medications Prior to Admission Medication Sig Dispense Refill Last Dose/Taking Albuterol (2.5 MG/3ML) 0.083% inhalation solution Take 3 mL by nebulization every 6 hours as needed for Shortness of Breath. 360 mL 5 07/03/2024 apixaban 5 MG tablet Take 1 tablet by mouth every 12 hours. 60 tablet 0 07/03/2024 budesonide 0.5 MG/2ML nebulizer suspension Inhale 2 mL 2 times daily. GARGLE, RINSE MOUTH AFTER USE 360 mL 3 07/03/2024 Doxazosin 4 MG tablet Take 1 tablet by mouth at bedtime. Past Week FIBER PO 80ml/hr of Compleat 1.5 continuously for 24 hours. Use 1 carton of Benecalorie daily. Flush with 200ml water four times per day. 07/03/2024 Finasteride 5 MG tablet Take 1 tablet by mouth daily. Taking fluticasone 50 MCG/ACT Suspension nasal spray 2 sprays by Nasal route daily. 07/03/2024 formoterol (Perforomist) 20 MCG/2ML Nebu Soln nebulizer solution Take 2 mL by nebulization 2 times daily. GARGLE, RINSE MOUTH AFTER USE 360 mL 3 07/03/2024 Ipratropium-albuterol 0.5-2.5 (3) MG/3ML nebulizer solution Take 3 mL by nebulization every 4 hours as needed for Shortness of Breath, Wheezing, Cough or Breathing Treatment. 360 mL 11 07/03/2024 Metoclopramide 5 MG tablet Take 1 tablet by mouth Twice daily. 07/04/2024 Morning Nutritional Supplements (Boost VHC) Liquid 52 mL by Enteral route. 07/03/2024 Revefenacin (Yupelri) 175 MCG/3ML Solution Inhale 3 mL daily. 90 mL 11 07/03/2024 roflumilast (Daliresp) 500 MCG tablet Take 1 tablet by mouth daily. 30 tablet 5 07/03/2024 Sertraline (Zoloft) 25 MG tablet Take 1 tablet by mouth daily. 90 tablet 1 07/03/2024 Acetaminophen 325 MG tablet Take 2 tablets by mouth Every 6 hours as needed. Unknown furOSEmide (Lasix) 20 MG tablet Take 1 tablet by mouth daily. 90 tablet 1 Lactobacillus Rhamnosus, GG, (culturelle) capsule capsule Take 1 capsule by mouth daily. Nebulizer Misc 1 Device by Unknown route every 4 hours as needed. 1 Each 0 ondansetron 4 MG/5ML solution Pantoprazole (Protonix) [address] tablet DR Take 1 tablet by mouth daily. 90 tablet 1 predniSONE 10 MG tablet Take 4 tablets by mouth for 3 days, then take 3 tablets by mouth for 3 days, then take 2 tablets by mouth for 3 days, 1 tablet for 3 days (Patient not taking: Reported on 04/22/2024) 30 tablet 0 Promethegan 25 MG Suppository suppository Rosuvastatin (Crestor) 5 MG tablet Take 1 tablet by mouth daily. 90 tablet 1 SPACER FOR INHALER PRESCRIPTION Use with inhaler as directed 1 Each 0 SUMAtriptan 50 MG tablet Take 1 tablet by mouth Every 2 hours as needed. Unknown Tamsulosin HCl 0.4 MG capsule Testosterone 25 MG/2.5GM (1%) Gel gel Place 2.5 g on skin daily. 225 g 0 traMADol (Ultram) 50 MG tablet Take 1 tablet by mouth every 4 hours as needed. 180 tablet 1 Valsartan (Diovan) 160 MG tablet Take 1 tablet by mouth daily. Check Blood pressure every day. If systolic blood pressure in > 130, then give 80 mg of valsartan (1/2 tablet), if < 130 then hold blood pressure medication. 30 tablet 2 Current Facility-Administered Medications Medication Dose Route Frequency Provider Last Rate Last Admin Acetaminophen (TYLENOL) tablet 325-650 mg 325-650 mg Oral Q4H PRN Eliseo Brennan APRN-KATINA apixaban (ELIQUIS) tablet 5 mg 5 mg Oral Q12H Eliseo Brennan, [employer]CTOR-PROJECT FACILITATOR 5 mg at 07/05/247 ceFEPIme (MAXIPIME) 2 g in sodium chloride 0.9% (MB PLUS) 100 mL (total volume) IVPB 2 g Intravenous Q8HNS oSnu Jones MD 25 mL/hr at 07/06/24 0402 2 g at 07/06/24 0402 diphenhydrAMINE (BENADRYL) injection 25 mg 25 mg Intravenous Q6H PRN Eliseo Brennan APRN-KATINA Doxazosin (CARDURA) tablet 4 mg 4 mg Oral QHS Eliseo Brennan, [employer] INSTRUCTOR-PROJECT FACILITATOR 4 mg at 07/05/247 Finasteride (PROSCAR) tablet 5 mg 5 mg Oral Daily Eliseo Brennan APRN-KATINA fluconazole (DIFLUCAN) tablet 150 mg 150 mg Oral Daily Eliseo Brennan [employer] INSTRUCTOR-PROJECT FACILITATOR 150 mg at 07/05/24 1240 fluticasone (FLONASE) 50 MCG/ACT nasal spray 2 spray 2 spray Nasal Daily Eliseo Brennan APRN-KATINA Ipratropium-albuterol (DUONEB) 0.5-2.5 (3) MG/3ML nebulizer solution 3 mL 3 mL Nebulization Q4H PRN Eliseo Brennan APRN-KATINA Ipratropium-albuterol (DUONEB) 0.5-2.5 (3) MG/3ML nebulizer solution 3 mL 3 mL Nebulization Q6HNS Eliseo Brennan, [employer] INSTRUCTOR-PROJECT FACILITATOR 3 mL at 07/06/24 0822 Labetalol (NORMODYNE) injection 20 mg 20 mg Intravenous Q4H PRN Eliseo Brennan, [employer] INSTRUCTOR-KATINA lactulose (CHRONULAC) oral solution 20 g 20 g Oral Q4H PRN Eliseo Brennan, [employer] INSTRUCTOR-KATINA levoFLOXacin (LEVAQUIN) 750 mg in dextrose 5% premix IVPB 750 mg Intravenous Q24H Eliseo Brennan, [employer] INSTRUCTOR-PROJECT FACILITATOR 100 mL/hr at 07/05/24 1614 750 mg at 07/05/24 161 Magnesium sulfate 2 g/50 ml in sterile water premix IVPB 2 g 50 mL (total volume) 2 g Intravenous Daily JERAD Vargas Melatonin tablet 6 mg 6 mg Oral QHS Eliseo Brennan APRN-PROJECT FACILITATOR 6 mg at 07/05/242126 methylPREDNISolone sodium succinate (SOLU-MEDROL) injection 40 mg 40 mg Intravenous Q12H Eliseo Brennan APRN-PROJECT FACILITATOR 40 mg at 07/05/242125 Metoclopramide (REGLAN) tablet 5 mg 5 mg Oral BID Eliseo Brennan APRN-PROJECT FACILITATOR 5 mg at 07/05/24 161 Non-Formulary Enteral Feed PEG Tube 3x daily JERAD Vargas Ondansetron 4mg/2ml (ZOFRAN) injection 4 mg 4 mg Intravenous Q4H PRN Eliseo Brennan APRN-KATINA Pantoprazole (PROTONIX) injection 40 mg 40 mg Intravenous Daily Eliseo Brennan APRN-PROJECT FACILITATOR 40 mg at 07/05/24 161 Polyethylene glycol (MIRALAX) packet 17 g 17 g Oral Daily Eliseo Brennan APRN-PROJECT FACILITATOR 17 g at 07/05/24 0929 Potassium chloride (K-DUR) tablet ER 40 mEq 40 mEq Oral Daily JERAD Vargas Or potassium chloride 40 mEq in 0.9% sodium chloride 500 ml IVPB 40 mEq Intravenous Daily JERAD Vargas probiotic blend (RISAQUAD) capsule 1 capsule 1 capsule Oral BID Eliseo Brennan APRN-PROJECT FACILITATOR 1 capsule at 07/05/24 1614 Sertraline (ZOLOFT) tablet 25 mg 25 mg Oral Daily Eliseo Brennan APRN-PROJECT FACILITATOR 25 mg at 07/05/24 0929 SUMAtriptan (IMITREX) tablet 50 mg 50 mg Oral BID PRN Eliseo Brennan APRN-PROJECT FACILITATOR 50 mg at 07/05/24 1132 traMADol (ULTRAM) tablet 50 mg 50 mg Oral Q6H PRN Eliseo Brennan APRN-PROJECT FACILITATOR 50 mg at 07/04/24 1526 vancomycin (VANCOCIN) 1,000 mg in dextrose 200 ml premix IVPB 1,000 mg Intravenous Q8HNS Eliseo Brennan APRN-PROJECT FACILITATOR 1,000 mg at 07/06/24 0143 Scheduled medications apixaban 5 mg Oral Q12H ceFEPIme 2 g Intravenous Q8HNS Doxazosin 4 mg Oral QHS Finasteride 5 mg Oral Daily Fluconazole 150 mg Oral Daily fluticasone 2 spray Nasal Daily Ipratropium-albuterol 3 mL Nebulization Q6HNS levoFLOXacin 750 mg Intravenous Q24H magnesium sulfate 2 g Intravenous Daily Melatonin 6 mg Oral QHS methylPREDNISolone 40 mg Intravenous Q12H Metoclopramide 5 mg Oral BID Non-Formulary Enteral Feed PEG Tube 3x daily Pantoprazole 40 mg Intravenous Daily Polyethylene glycol 17 g Oral Daily Potassium chloride 40 mEq Oral Daily Or potassium chloride 40 mEq Intravenous Daily probiotic blend 1 capsule Oral BID Sertraline 25 mg Oral Daily vancomycin 1,000 mg Intravenous Q8HNS Continuous Infusions PRN Medications Acetaminophen, diphenhydrAMINE, Ipratropium-albuterol, Labetalol, lactulose, Ondansetron 4mg/2ml, SUMAtriptan, traMADol No Known Allergies Social History Socioeconomic History Marital status: Tobacco Use Smoking status: Former Types: Cigarettes Smokeless tobacco: Never Vaping Use Vaping status: Never Used Substance and Sexual Activity Alcohol use: No Drug use: No Social Drivers of Health Food Insecurity: No Food Insecurity (07/05/2024) NCSS - Food Insecurity Worried About Running Out of Food in the Last Year: No Ran Out of Food in the Last Year: No Transportation Needs: No Transportation Needs (07/05/2024) NCSS - Transportation Lack of Transportation: No Personal Safety: Patient Unable To Answer (07/05/2024) NCSS - Interpersonal Safety Feels Physically and Emotionally Safe: Patient unable to answer Physically Hurt by Someone: Patient unable to answer Humiliated or Emotionally Abused by Someone: Patient unable to answer Housing Stability: Not At Risk (07/05/2024) NCSS - Housing/Utilities Has Housing: Yes Worried About Losing Housing: No Unable to Get Utilities: No Family History Problem Relation Age of Onset No known problems Mother Heart Disease - Other Father Heart Disease - Other Brother Heart Disease - Other Other Coronary Artery Disease Other Review of System Constitutional: Negative malaise/fatigue, significant weight loss Hematologic: Negative for anemia, hypercoagulable states, transfusion dependency Endocrine: Negative polyuria, thyroid goiter, flushing Skin: Negative rash, lesions, ulcerations HEENT: Negative diplopia, visual file defect, vertigo Cardiovascular: see HPI and negative for chest wall trauma Respiratory: see HPI, negative for chest wall deformity, hemopysis, prior tracheotomy Gastrointestinal: Negative for abdominal pain, GI bleed, bowel obstruction Genitourinary: Negative for nephrolithiasis , dysuria, hematuria Neurological: Negative for felice syncope, frequent falls, new CVA symptoms, Psychiatric: Negative anxiety, depression, psychiatric disorder Musculoskeletal: Negative for joint pain, joint deformity, swelling Blood pressure 122/59, pulse 59, temperature 97.7 F (36.5 C), temperature source Axillary, resp. rate 16, height 1.854 m (6' 1), weight 83.9 kg (185 lb), SpO2 95%. Body mass index is 24.41 kg/m . Physical Exam General appearance - alert, well developed, well nourished, 73 y.o.male with appropriate affect HEENT-PERRLA, EOMI, no xanthelasma or icterus, TABLE MOUNTAIN Neck - No JVD or bruits. Carotid upstrokes brisk. No adenopathy or thyromegaly. Lungs - clear to auscultation, no wheezes, rales or rhonchi Heart - regular rate and regular rhythm, normal S1 and S2 , no significant murmurs, click rub or lift , Abdomen - soft, nontender, no organomegaly Extremities -no edema, clubbing or cyanosis. pulses 2+ bilaterally Neurologic-cranial nerves II through XII intact Skin - normal coloration and turgor, no laxity Psych- appropriate mood, Musculoskeletal - no joint deformity, tendon xanthoma Lab Results: Lab Results Component Value Date SODIUM 145 07/06/2024 SODIUM 149 (H) 07/05/2024 SODIUM 154 (H) 07/04/2024 POTASSIUM 4.2 07/06/2024 POTASSIUM 3.9 07/05/2024 POTASSIUM 3.9 07/04/2024 MAGNESIUM 2.1 07/06/2024 MAGNESIUM 2.1 07/05/2024 MAGNESIUM 2.1 06/17/2023 CALCIUM 9.0 07/06/2024 CALCIUM 9.2 07/05/2024 CALCIUM 8.9 06/17/2023 CHLORIDE 107 07/06/2024 CHLORIDE 107 07/05/2024 CHLORIDE 106 07/04/2024 TP 6.3 07/06/2024 TP 6.6 07/05/2024 TP 6.2 (L) 06/17/2023 BUN 35 (H) 07/06/2024 BUN 40 (H) 07/05/2024 BUN 40 (H) 07/04/2024 CREATSERUM 0.63 (L) 07/06/2024 CREATSERUM 0.69 (L) 07/05/2024 CREATSERUM 0.79 07/04/2024 ALBUMIN 3.6 07/06/2024 ALBUMIN 3.7 07/05/2024 ALBUMIN 3.1 (L) 06/17/2023 BILITOTAL 0.4 07/06/2024 BILITOTAL 0.4 07/05/2024 BILITOTAL 0.4 06/17/2023 AST 27 07/06/2024 AST 35 07/05/2024 AST 30 06/17/2023 ALKPHOS 78 07/06/2024 ALKPHOS 76 07/05/2024 ALKPHOS 107 06/17/2023 CO2 30 07/06/2024 CO2 30 07/05/2024 CO2 36 (H) 07/04/2024 AGRATIO 1.3 07/06/2024 AGRATIO 1.3 07/05/2024 AGRATIO 1.0 06/17/2023 ALT 23 07/06/2024 ALT 31 07/05/2024 ALT 39 06/17/2023 GFR 133 07/06/2024 GFR 119 07/05/2024 GFR 102 07/04/2024 GFRAA 161 07/06/2024 GFRAA 145 07/05/2024 GFRAA 124 07/04/2024 GFRCOMMENT Average GFR for 70+ years old = 75. 07/06/2024 GFRCOMMENT Average GFR for 70+ years old = 75. 07/05/2024 GFRCOMMENT Average GFR for 70+ years old = 75. 07/04/2024 GLUCOSE 177 (H) 07/06/2024 GLUCOSE 242 (H) 07/05/2024 GLUCOSE 124 (H) 07/04/2024 TROPHIGHSENS 20 07/05/2024 TROPHIGHSENS 44 (H) 07/04/2024 TROPHIGHSENS 34 (H) 07/04/2024 Lab Results Component Value Date CHOLESTEROL 161 08/09/2022 CHOLESTEROL 163 07/13/2021 TRIG 93 06/17/2023 TRIG 146 08/09/2022 HDL 51 08/09/2022 HDL 46 07/13/2021 LDLCALC 81 08/09/2022 LDLCALC 74 07/13/2021 TCHHDLMANENT 3.16 08/09/2022 TCHHDLMANENT 3.54 07/13/2021 Lab Results Component Value Date PT 15.3 (H) 06/14/2023 PT 16.0 (H) 05/26/2023 INR 1.20 (H) 06/14/2023 INR 1.27 (H) 05/26/2023 PTT 32.0 06/14/2023 PTT 26.8 05/24/2023 WBC 9.7 07/06/2024 WBC 8.1 07/05/2024 RBC 4.06 07/06/2024 RBC 4.13 07/05/2024 HGB 12.8 (L) 07/06/2024 HGB 12.9 (L) 07/05/2024 HCT 38.5 (L) 07/06/2024 HCT 39.4 (L) 07/05/2024 MCV 94.8 07/06/2024 MCV 95.4 07/05/2024 MEANCELHGB 31.4 07/06/2024 MEANCELHGB 31.3 07/05/2024 MEANCELHGCON 33.2 07/06/2024 MEANCELHGCON 32.8 07/05/2024 RBCDISTRIBU 13.8 07/06/2024 RBCDISTRIBU 13.9 07/05/2024 PLATELET 124 (L) 07/06/2024 PLATELET 128 (L) 07/05/2024 MPV 10.5 07/06/2024 MPV 10.6 07/05/2024 NEUTROPHILS 94.4 (H) 07/06/2024 NEUTROPHILS 96.1 (H) 07/05/2024 LYMPHOCYTES 2.2 (L) 07/06/2024 LYMPHOCYTES 2.2 (L) 07/05/2024 MONOCYTE 3.3 07/06/2024 MONOCYTE 1.4 07/05/2024 EOSINOPHILS 0.0 07/06/2024 EOSINOPHILS 0.0 07/06/2024 BASOPHILS 0.1 07/06/2024 BASOPHILS 0.0 07/06/2024 DIFFTYPE AUTO DIFF 07/06/2024 DIFFTYPE AUTO DIFF 07/05/2024 PLTCMT ADEQUATE 05/09/2023 HGBA1C 5.9 05/10/2023 HGBA1C 5.8 08/09/2022 ESTAVGGLUCOS 123 05/10/2023 ESTAVGGLUCOS 120 08/09/2022 TSH 1.657 02/05/2017 JERAD Chand 07/06/2024 8:45 AM Cosigned by Amy Bassett DO at 07/06/2024 10:10 AM EDT [employer] Work Phone: 07-06-2024 Consult note Associated Order (s): IP CONSULT TO CARDIOLOGY Chief Complaint Chief Complaint Patient presents with Cough Pt. Arrives with with c/o coughing up secretions and choking on them. Pt. 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 Assessment & Plan Elevated Troponin: No CP. Can do at least 4 METS without sx. On Eliquis for hx PE. Echo 07/05/24 shows EF 65-70%, no WMA, grade 1 diastolic dysfunction, incidental atrial septal aneurysm (usually benign), possible PFO. On statin and ARB. Lipid 08/09/22: Total 161. TG 146. HDL 51. LDL 81. -Reviewed echo results with pt and . -Due to hx of AAA with rupture in brother, would recommend he be screened for AAA outpatient. CT abd/pelvis shows 3.1 cm infrarenal AAAs, similar to prior exam. Would avoid fluoroquinolones if possible and control BP. No smoking. -30% of the population has a PFO, this is benign -Could consider outpatient stress test or CCTA to further evaluate as an outpatient due to family history of 3 sisters who of MIs in their 50's -Repeat lipid panel -This is likely a type II NSTEMI due to demand ischemia -------- HPI Amy Sun is a 73 y.o. male seen by [facility] cardiology today for elevated troponin. Per H&P from hospitalist team: Patient is a 73 y.o. male who presented to the hospital for evaluation of due to cough and congestion. Patient has a history of tongue and throat cancer. He does not swallow. History of recurrent aspiration pneumonia. He comes in stating it feels like his chest is congested and he has been coughing more. He is concerned that he has recurrence of his aspiration pneumonia. Ct chest showed multifocal infiltrates. Small nodules. Oxygen saturation was 84% on room air. He is now on 3 L of oxygen. Labs showed a sodium of 154 and a troponin of 34. Patient placed on broad-spectrum antibiotics. Oxygen has improved. Troponin initially 47, then 44, then normal at 20 at last check yesterday morning. He denies exertional sx. States he feels well and would like to go home. 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 (central serous retinopathy), bilateral Epiretinal membrane (ERM) of left eye 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 Multiple lung nodules on CT Dysphagia Pseudophakia of both eyes Severe protein-calorie malnutrition Tear film insufficiency Vitelliform lesion of macula Hyperopia of both eyes with astigmatism and presbyopia Xerostomia due to radiotherapy Leukocytosis Cough Fever Dry heaves Elevated troponin Failure to thrive in adult COPD (chronic obstructive pulmonary disease) with acute bronchitis Dysphagia Cough Squamous cell carcinoma of tongue Hyperglycemia Aspiration pneumonia S/P percutaneous endoscopic gastrostomy (PEG) tube placement COPD (chronic obstructive pulmonary disease) Aspiration into airway GERD (gastroesophageal reflux disease) Noncompliance Multifocal pneumonia Other hypotension Elevated alkaline phosphatase level Acute respiratory failure with hypoxia Benign hypertension Aspiration pneumonia of both lungs Leukocytosis BPH (benign prostatic hyperplasia) COPD exacerbation GERD (gastroesophageal reflux disease) HLD (hyperlipidemia) PNA (pneumonia) Centrilobular emphysema Cough with hemoptysis Mass of pleura Single subsegmental pulmonary embolism without acute cor pulmonale Chronic respiratory failure with hypoxia, on home oxygen therapy AAA (abdominal aortic aneurysm) Anxiety and depression Constipation Difficulty sleeping Erythrocytosis Secondary polycythemia Hyponatremia Left inguinal hernia Migraine without aura and without status migrainosus, not intractable Postnasal drip Venous insufficiency Acute hypoxemic respiratory failure Chronic obstructive pulmonary disease Aspiration into lower respiratory tract Pulmonary lesion, right Hypertension Edema of both lower extremities Nausea & vomiting Vomiting Pharyngoesophageal dysphagia Gastroesophageal reflux disease Vitreous floaters of both eyes Pulmonary embolus, right Pneumonia of both lower lobes due to infectious organism Dependence on nocturnal oxygen therapy Hypernatremia History of pulmonary embolism Oral prerna Past Medical History: Diagnosis Date Abnormal glucose Bilateral leg edema BPH without urinary obstruction Chronic kidney disease (CKD), stage I Degenerative joint disease Enthesopathy Essential hypertension, benign Fatigue Former smoker 2 PPD x46 years, quite 09/19/2008 GERD (gastroesophageal reflux disease) Hepatic steatosis Hyperlipidemia Impotence of organic origin Insomnia Obesity Testicular hypofunction Tongue cancer Stage IIB, T2, N1, 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 Chemo/RT with Cisplatin and RT and Ethyol. RT completed 02/28/09. Past Surgical History: Procedure Laterality Date EGD W/ PLACEMENT OR REPLACEMENT PEG 04/04/2023 NECK SURGERY 2009 for cancer INGUINAL HERNIA REPAIR 1988 REMOVAL CATARACT (PEM) Bilateral VASECTOMY Medications Prior to Admission Medication Sig Dispense Refill Last Dose/Taking Albuterol (2.5 MG/3ML) 0.083% inhalation solution Take 3 mL by nebulization every 6 hours as needed for Shortness of Breath. 360 mL 5 07/03/2024 apixaban 5 MG tablet Take 1 tablet by mouth every 12 hours. 60 tablet 0 07/03/2024 budesonide 0.5 MG/2ML nebulizer suspension Inhale 2 mL 2 times daily. GARGLE, RINSE MOUTH AFTER USE 360 mL 3 07/03/2024 Doxazosin 4 MG tablet Take 1 tablet by mouth at bedtime. Past Week FIBER PO 80ml/hr of Compleat 1.5 continuously for 24 hours. Use 1 carton of Benecalorie daily. Flush with 200ml water four times per day. 07/03/2024 Finasteride 5 MG tablet Take 1 tablet by mouth daily. Taking fluticasone 50 MCG/ACT Suspension nasal spray 2 sprays by Nasal route daily. 07/03/2024 formoterol (Perforomist) 20 MCG/2ML Nebu Soln nebulizer solution Take 2 mL by nebulization 2 times daily. GARGLE, RINSE MOUTH AFTER USE 360 mL 3 07/03/2024 Ipratropium-albuterol 0.5-2.5 (3) MG/3ML nebulizer solution Take 3 mL by nebulization every 4 hours as needed for Shortness of Breath, Wheezing, Cough or Breathing Treatment. 360 mL 11 07/03/2024 Metoclopramide 5 MG tablet Take 1 tablet by mouth Twice daily. 07/04/2024 Morning Nutritional Supplements (Boost VHC) Liquid 52 mL by Enteral route. 07/03/2024 Revefenacin (Yupelri) 175 MCG/3ML Solution Inhale 3 mL daily. 90 mL 11 07/03/2024 roflumilast (Daliresp) 500 MCG tablet Take 1 tablet by mouth daily. 30 tablet 5 07/03/2024 Sertraline (Zoloft) 25 MG tablet Take 1 tablet by mouth daily. 90 tablet 1 07/03/2024 Acetaminophen 325 MG tablet Take 2 tablets by mouth Every 6 hours as needed. Unknown furOSEmide (Lasix) 20 MG tablet Take 1 tablet by mouth daily. 90 tablet 1 Lactobacillus Rhamnosus, GG, (culturelle) capsule capsule Take 1 capsule by mouth daily. Nebulizer Misc 1 Device by Unknown route every 4 hours as needed. 1 Each 0 ondansetron 4 MG/5ML solution Pantoprazole (Protonix) [address] tablet DR Take 1 tablet by mouth daily. 90 tablet 1 predniSONE 10 MG tablet Take 4 tablets by mouth for 3 days, then take 3 tablets by mouth for 3 days, then take 2 tablets by mouth for 3 days, 1 tablet for 3 days (Patient not taking: Reported on 04/22/2024) 30 tablet 0 Promethegan 25 MG Suppository suppository Rosuvastatin (Crestor) 5 MG tablet Take 1 tablet by mouth daily. 90 tablet 1 SPACER FOR INHALER PRESCRIPTION Use with inhaler as directed 1 Each 0 SUMAtriptan 50 MG tablet Take 1 tablet by mouth Every 2 hours as needed. Unknown Tamsulosin HCl 0.4 MG capsule Testosterone 25 MG/2.5GM (1%) Gel gel Place 2.5 g on skin daily. 225 g 0 traMADol (Ultram) 50 MG tablet Take 1 tablet by mouth every 4 hours as needed. 180 tablet 1 Valsartan (Diovan) 160 MG tablet Take 1 tablet by mouth daily. Check Blood pressure every day. If systolic blood pressure in > 130, then give 80 mg of valsartan (1/2 tablet), if < 130 then hold blood pressure medication. 30 tablet 2 Current Facility-Administered Medications Medication Dose Route Frequency Provider Last Rate Last Admin Acetaminophen (TYLENOL) tablet 325-650 mg 325-650 mg Oral Q4H PRN Eliseo Brennan APRN-KATINA apixaban (ELIQUIS) tablet 5 mg 5 mg Oral Q12H Eliseo Brennan APRN-PROJECT FACILITATOR 5 mg at 07/05/242126 ceFEPIme (MAXIPIME) 2 g in sodium chloride 0.9% (MB PLUS) 100 mL (total volume) IVPB 2 g Intravenous Q8HNS Sonu Jones MD 25 mL/hr at 07/06/24 0402 2 g at 07/06/24 0402 diphenhydrAMINE (BENADRYL) injection 25 mg 25 mg Intravenous Q6H PRN Eliseo Brennan APRN-KATINA Doxazosin (CARDURA) tablet 4 mg 4 mg Oral QHS Eliseo Brennan, [employer]-PROJECT FACILITATOR 4 mg at 07/05/24 2127 Finasteride (PROSCAR) tablet 5 mg 5 mg Oral Daily Eliseo Brennan APRN-KATINA fluconazole (DIFLUCAN) tablet 150 mg 150 mg Oral Daily Eliseo Brennan [employer]CTOR-PROJECT FACILITATOR 150 mg at 07/05/24 1240 fluticasone (FLONASE) 50 MCG/ACT nasal spray 2 spray 2 spray Nasal Daily Eliseo Brennan APRN-KATINA Ipratropium-albuterol (DUONEB) 0.5-2.5 (3) MG/3ML nebulizer solution 3 mL 3 mL Nebulization Q4H PRN Eliseo rBennan APRN-KATINA Ipratropium-albuterol (DUONEB) 0.5-2.5 (3) MG/3ML nebulizer solution 3 mL 3 mL Nebulization Q6HNS Eliseo Brennan APRN-PROJECT FACILITATOR 3 mL at 07/06/24 0822 Labetalol (NORMODYNE) injection 20 mg 20 mg Intravenous Q4H PRN Eliseo Brennan APRN-KATINA lactulose (CHRONULAC) oral solution 20 g 20 g Oral Q4H PRN Eliseo Brennan APRN-KATINA levoFLOXacin (LEVAQUIN) 750 mg in dextrose 5% premix IVPB 750 mg Intravenous Q24H Eliseo Brennan APRN-PROJECT FACILITATOR 100 mL/hr at 07/05/24 1614 750 mg at 07/05/24 1614 Magnesium sulfate 2 g/50 ml in sterile water premix IVPB 2 g 50 mL (total volume) 2 g Intravenous Daily Eliseo Brennan APRN-KATINA Melatonin tablet 6 mg 6 mg Oral QHS Eliseo Brennan APRN-PROJECT FACILITATOR 6 mg at 07/05/24 2127 methylPREDNISolone sodium succinate (SOLU-MEDROL) injection 40 mg 40 mg Intravenous Q12H Eliseo Brennan APRN-PROJECT FACILITATOR 40 mg at 07/05/24 2126 Metoclopramide (REGLAN) tablet 5 mg 5 mg Oral BID Eliseo Brennan APRN-PROJECT FACILITATOR 5 mg at 07/05/24 1614 Non-Formulary Enteral Feed PEG Tube 3x daily JERAD Vargas Ondansetron 4mg/2ml (ZOFRAN) injection 4 mg 4 mg Intravenous Q4H PRN Eliseo Brennan APRN-KATINA Pantoprazole (PROTONIX) injection 40 mg 40 mg Intravenous Daily Eliseo Brennan APRN-PROJECT FACILITATOR 40 mg at 07/05/24 1614 Polyethylene glycol (MIRALAX) packet 17 g 17 g Oral Daily Eliseo Brennan APRN-PROJECT FACILITATOR 17 g at 07/05/24 0929 Potassium chloride (K-DUR) tablet ER 40 mEq 40 mEq Oral Daily JERAD Vargas Or potassium chloride 40 mEq in 0.9% sodium chloride 500 ml IVPB 40 mEq Intravenous Daily JERAD Vargas probiotic blend (RISAQUAD) capsule 1 capsule 1 capsule Oral BID Eliseo Brennan APRN-PROJECT FACILITATOR 1 capsule at 07/05/24 1614 Sertraline (ZOLOFT) tablet 25 mg 25 mg Oral Daily Eliseo Brennan APRN-PROJECT FACILITATOR 25 mg at 07/05/24 0929 SUMAtriptan (IMITREX) tablet 50 mg 50 mg Oral BID PRN Eliseo Brennan APRN-PROJECT FACILITATOR 50 mg at 07/05/24 1132 traMADol (ULTRAM) tablet 50 mg 50 mg Oral Q6H PRN Eliseo Brennan APRN-PROJECT FACILITATOR 50 mg at 07/04/24 1526 vancomycin (VANCOCIN) 1,000 mg in dextrose 200 ml premix IVPB 1,000 mg Intravenous Q8HNS Eliseo Brennan APRN-PROJECT FACILITATOR 1,000 mg at 07/06/24 0143 Scheduled medications apixaban 5 mg Oral Q12H ceFEPIme 2 g Intravenous Q8HNS Doxazosin 4 mg Oral QHS Finasteride 5 mg Oral Daily Fluconazole 150 mg Oral Daily fluticasone 2 spray Nasal Daily Ipratropium-albuterol 3 mL Nebulization Q6HNS levoFLOXacin 750 mg Intravenous Q24H magnesium sulfate 2 g Intravenous Daily Melatonin 6 mg Oral QHS methylPREDNISolone 40 mg Intravenous Q12H Metoclopramide 5 mg Oral BID Non-Formulary Enteral Feed PEG Tube 3x daily Pantoprazole 40 mg Intravenous Daily Polyethylene glycol 17 g Oral Daily Potassium chloride 40 mEq Oral Daily Or potassium chloride 40 mEq Intravenous Daily probiotic blend 1 capsule Oral BID Sertraline 25 mg Oral Daily vancomycin 1,000 mg Intravenous Q8HNS Continuous Infusions PRN Medications Acetaminophen, diphenhydrAMINE, Ipratropium-albuterol, Labetalol, lactulose, Ondansetron 4mg/2ml, SUMAtriptan, traMADol No Known Allergies Social History Socioeconomic History Marital status: Tobacco Use Smoking status: Former Types: Cigarettes Smokeless tobacco: Never Vaping Use Vaping status: Never Used Substance and Sexual Activity Alcohol use: No Drug use: No Social Drivers of Health Food Insecurity: No Food Insecurity (07/05/2024) NCSS - Food Insecurity Worried About Running Out of Food in the Last Year: No Ran Out of Food in the Last Year: No Transportation Needs: No Transportation Needs (07/05/2024) NCSS - Transportation Lack of Transportation: No Personal Safety: Patient Unable To Answer (07/05/2024) NCSS - Interpersonal Safety Feels Physically and Emotionally Safe: Patient unable to answer Physically Hurt by Someone: Patient unable to answer Humiliated or Emotionally Abused by Someone: Patient unable to answer Housing Stability: Not At Risk (07/05/2024) NCSS - Housing/Utilities Has Housing: Yes Worried About Losing Housing: No Unable to Get Utilities: No Family History Problem Relation Age of Onset No known problems Mother Heart Disease - Other Father Heart Disease - Other Brother Heart Disease - Other Other Coronary Artery Disease Other Review of System Constitutional: Negative malaise/fatigue, significant weight loss Hematologic: Negative for anemia, hypercoagulable states, transfusion dependency Endocrine: Negative polyuria, thyroid goiter, flushing Skin: Negative rash, lesions, ulcerations HEENT: Negative diplopia, visual file defect, vertigo Cardiovascular: see HPI and negative for chest wall trauma Respiratory: see HPI, negative for chest wall deformity, hemopysis, prior tracheotomy Gastrointestinal: Negative for abdominal pain, GI bleed, bowel obstruction Genitourinary: Negative for nephrolithiasis , dysuria, hematuria Neurological: Negative for felice syncope, frequent falls, new CVA symptoms, Psychiatric: Negative anxiety, depression, psychiatric disorder Musculoskeletal: Negative for joint pain, joint deformity, swelling Blood pressure 122/59, pulse 59, temperature 97.7 F (36.5 C), temperature source Axillary, resp. rate 16, height 1.854 m (6' 1), weight 83.9 kg (185 lb), SpO2 95%. Body mass index is 24.41 kg/m . Physical Exam General appearance - alert, well developed, well nourished, 73 y.o.male with appropriate affect HEENT-PERRLA, EOMI, no xanthelasma or icterus, TABLE MOUNTAIN Neck - No JVD or bruits. Carotid upstrokes brisk. No adenopathy or thyromegaly. Lungs - clear to auscultation, no wheezes, rales or rhonchi Heart - regular rate and regular rhythm, normal S1 and S2 , no significant murmurs, click rub or lift , Abdomen - soft, nontender, no organomegaly Extremities -no edema, clubbing or cyanosis. pulses 2+ bilaterally Neurologic-cranial nerves II through XII intact Skin - normal coloration and turgor, no laxity Psych- appropriate mood, Musculoskeletal - no joint deformity, tendon xanthoma Lab Results: Lab Results Component Value Date SODIUM 145 07/06/2024 SODIUM 149 (H) 07/05/2024 SODIUM 154 (H) 07/04/2024 POTASSIUM 4.2 07/06/2024 POTASSIUM 3.9 07/05/2024 POTASSIUM 3.9 07/04/2024 MAGNESIUM 2.1 07/06/2024 MAGNESIUM 2.1 07/05/2024 MAGNESIUM 2.1 06/17/2023 CALCIUM 9.0 07/06/2024 CALCIUM 9.2 07/05/2024 CALCIUM 8.9 06/17/2023 CHLORIDE 107 07/06/2024 CHLORIDE 107 07/05/2024 CHLORIDE 106 07/04/2024 TP 6.3 07/06/2024 TP 6.6 07/05/2024 TP 6.2 (L) 06/17/2023 BUN 35 (H) 07/06/2024 BUN 40 (H) 07/05/2024 BUN 40 (H) 07/04/2024 CREATSERUM 0.63 (L) 07/06/2024 CREATSERUM 0.69 (L) 07/05/2024 CREATSERUM 0.79 07/04/2024 ALBUMIN 3.6 07/06/2024 ALBUMIN 3.7 07/05/2024 ALBUMIN 3.1 (L) 06/17/2023 BILITOTAL 0.4 07/06/2024 BILITOTAL 0.4 07/05/2024 BILITOTAL 0.4 06/17/2023 AST 27 07/06/2024 AST 35 07/05/2024 AST 30 06/17/2023 ALKPHOS 78 07/06/2024 ALKPHOS 76 07/05/2024 ALKPHOS 107 06/17/2023 CO2 30 07/06/2024 CO2 30 07/05/2024 CO2 36 (H) 07/04/2024 AGRATIO 1.3 07/06/2024 AGRATIO 1.3 07/05/2024 AGRATIO 1.0 06/17/2023 ALT 23 07/06/2024 ALT 31 07/05/2024 ALT 39 06/17/2023 GFR 133 07/06/2024 GFR 119 07/05/2024 GFR 102 07/04/2024 GFRAA 161 07/06/2024 GFRAA 145 07/05/2024 GFRAA 124 07/04/2024 GFRCOMMENT Average GFR for 70+ years old = 75. 07/06/2024 GFRCOMMENT Average GFR for 70+ years old = 75. 07/05/2024 GFRCOMMENT Average GFR for 70+ years old = 75. 07/04/2024 GLUCOSE 177 (H) 07/06/2024 GLUCOSE 242 (H) 07/05/2024 GLUCOSE 124 (H) 07/04/2024 TROPHIGHSENS 20 07/05/2024 TROPHIGHSENS 44 (H) 07/04/2024 TROPHIGHSENS 34 (H) 07/04/2024 Lab Results Component Value Date CHOLESTEROL 161 08/09/2022 CHOLESTEROL 163 07/13/2021 TRIG 93 06/17/2023 TRIG 146 08/09/2022 HDL 51 08/09/2022 HDL 46 07/13/2021 LDLCALC 81 08/09/2022 LDLCALC 74 07/13/2021 TCHHDLMANENT 3.16 08/09/2022 TCHHDLMANENT 3.54 07/13/2021 Lab Results Component Value Date PT 15.3 (H) 06/14/2023 PT 16.0 (H) 05/26/2023 INR 1.20 (H) 06/14/2023 INR 1.27 (H) 05/26/2023 PTT 32.0 06/14/2023 PTT 26.8 05/24/2023 WBC 9.7 07/06/2024 WBC 8.1 07/05/2024 RBC 4.06 07/06/2024 RBC 4.13 07/05/2024 HGB 12.8 (L) 07/06/2024 HGB 12.9 (L) 07/05/2024 HCT 38.5 (L) 07/06/2024 HCT 39.4 (L) 07/05/2024 MCV 94.8 07/06/2024 MCV 95.4 07/05/2024 MEANCELHGB 31.4 07/06/2024 MEANCELHGB 31.3 07/05/2024 MEANCELHGCON 33.2 07/06/2024 MEANCELHGCON 32.8 07/05/2024 RBCDISTRIBU 13.8 07/06/2024 RBCDISTRIBU 13.9 07/05/2024 PLATELET 124 (L) 07/06/2024 PLATELET 128 (L) 07/05/2024 MPV 10.5 07/06/2024 MPV 10.6 07/05/2024 NEUTROPHILS 94.4 (H) 07/06/2024 NEUTROPHILS 96.1 (H) 07/05/2024 LYMPHOCYTES 2.2 (L) 07/06/2024 LYMPHOCYTES 2.2 (L) 07/05/2024 MONOCYTE 3.3 07/06/2024 MONOCYTE 1.4 07/05/2024 EOSINOPHILS 0.0 07/06/2024 EOSINOPHILS 0.0 07/06/2024 BASOPHILS 0.1 07/06/2024 BASOPHILS 0.0 07/06/2024 DIFFTYPE AUTO DIFF 07/06/2024 DIFFTYPE AUTO DIFF 07/05/2024 PLTCMT ADEQUATE 05/09/2023 HGBA1C 5.9 05/10/2023 HGBA1C 5.8 08/09/2022 ESTAVGGLUCOS 123 05/10/2023 ESTAVGGLUCOS 120 08/09/2022 TSH 1.657 02/05/2017 JERAD Chand 07/06/2024 8:45 AM Cosigned by Amy Bassett DO at 07/06/2024 10:10 AM EDT documented in this encounter [facility] 07-06-2024 Nurse Note Pt dozing between care, at bedside, denies discomfort or needs. See flowsheet assessment. [facility] 07-06-2024 Nurse Note No change noted from previous assessment by this RN unless otherwise detailed in coordinating flow sheets. Patient denies any needs at this time. T [facility] 07-06-2024 Nurse Note No change noted from previous assessment by this RN unless otherwise detailed in coordinating flow sheets. Patient denies any needs at this time. T [facility] 07-05-2024 Progress note Formatting of t his note might be different from the original. Patient reports independence with mobility and ADLs denies need for therapy evaluations, will sign off T [facility] 07-05-2024 Nurse Note 07/05/24 1105 Patient Interview Type of Readmission Unplanned Who is interview with? Patient What brought you back to the hospital? Cough;Shortness of breath When did you start having problems after discharge? > 14 Days Previous Discharge Disposition? Home (with or without home services) Admitted from Home Setting Were you able to reach out to your provider before coming back to the hospital? No If no, what stopped you from reaching out? [place] needed to be seen and went to ED or urgent care on my own Who helped you after discharge? Spouse/significant other Did you/caregiver receive education re: discharge needs (ie: teaching on L/D/A, injection teaching, medications, home health, etc.) Yes Did someone review your final discharge instructions (After Visit Summary) with you/caregiver at your last discharge? Yes Did you/caregiver understand your discharge instructions and how to take care of yourself at home? Yes Were you sent home on new medications? Yes Were you able to get them filled? Yes Did you have any problems taking them as prescribed? No Did you/caregiver understand how to take all your medications? Yes Quality Was this hospitalization related to a potential discharge planning gap? No Reviewed chart and met with patient. Patient is a 30 day readmission. Patient gives minimal answers to questions asked. Patient recently discharged from [facility]. Patient states that he was admitted for the same thing and states that once I get pneumonia I have a hard time getting rid of it. Patient does have a history of tongue cancer and receives enteral nutrition at home. Patient's spouse assists in patient's care. He does wear home O2 at night, but is unable to remember home O2 provider. Patient was prescribed new scripts at last discharge and states that he was able to get them without issue. He does report medication compliance. Patient states that he attends medical appointments. He denies all current needs or questions. Will continue to monitor in case that future needs arise. [facility] 07-05-2024 Progress note Formatting of t his note might be different from the original. PT consult received and chart reviewed. Pt was admitted due to PNA of both lower lobes due to infectious organism. Pt states he remains independent and does not require a formal PT evaluation. Will sign off. [facility] 07-05-2024 Note T11 :This report has been cancel led. [facility] 07-05-2024 Nurse Note Tube feed completed. Flushed with 40ml water and tube disconnected from patient. [facility] 07-05-2024 Nurse Note Pt is resting in bed. Pt denies complaints at this time. Tube feed is running. Assessment remains unchanged from previous. Call light is within reach. [facility] 07-05-2024 Nurse Note Pt is resting in bed. Pt denies needs at this time. Assessment remains unchanged from previous. Tube feed is running per pt's home pump. Call light is within reach. [facility] 07-04-2024 Nurse Note Patient and requested to use home feeding supplements (2 Completes and 3 High Calorie Boost) in place of jevity, reporting this works best for him. Tube feed started at 94ml/hr, to run for 12 hours. [facility] 07-04-2024 Nurse Note On admission to [facility] 2ND FLOOR, from ED a dual RN initial assessment of skin condition was performed by Sarah Diaz RN and Varsha Walker LPN. Skin Assessment: Skin within defined limits:Yes Amador Score: 21 LDA Added:No Sarah Diaz RN [facility] 07-04-2024 History and physical note History and Physical Examination Admit date: 07/04/2024 10:18 AM Chief Complaint: Chief Complaint Patient presents with Cough Pt. Arrives with with c/o coughing up secretions and choking on them. Pt. 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 History of Present Illness: Patient is a 73 y.o. male who presented to the hospital for evaluation of due to cough and congestion. Patient has a history of tongue and throat cancer. He does not swallow. History of recurrent aspiration pneumonia. He comes in stating it feels like his chest is congested and he has been coughing more. He is concerned that he has recurrence of his aspiration pneumonia. Ct chest showed multifocal infiltrates. Small nodules. Oxygen saturation was 84% on room air. He is now on 3 L of oxygen. Labs showed a sodium of 154 and a troponin of 34. Patient placed on broad-spectrum antibiotics. Oxygen has improved. 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 Chemo/RT with Cisplatin and RT and Ethyol. RT completed 02/28/09. Past Surgical History: Procedure Laterality Date EGD W/ PLACEMENT OR REPLACEMENT PEG 04/04/2023 NECK SURGERY 2008 for cancer INGUINAL HERNIA REPAIR 1988 REMOVAL CATARACT (PEM) Bilateral VASECTOMY Social History Tobacco Use Smoking status: Former Types: Cigarettes Smokeless tobacco: Never Substance Use Topics Alcohol use: No Family History Problem Relation Age of Onset No known problems Mother Heart Disease - Other Father Heart Disease - Other Brother Heart Disease - Other Other Coronary Artery Disease Other (Not in a hospital admission) No Known Allergies Review of Systems: Ten systems reviewed and found to be negative unless otherwise stated in the history and present illness. PHYSICAL EXAM: Patient Vitals for the past 8 hrs: BP Temp Temp src Pulse Resp SpO2 Height Weight 07/04/24 1331 112/63 -- -- 86 22 95 % -- -- 07/04/24 1229 -- -- -- -- -- 96 % -- -- 07/04/24 1218 101/69 -- -- 83 16 (!) 84 % -- -- 07/04/24 1126 115/76 -- -- 64 22 98 % -- -- 07/04/24 1014 -- -- -- -- -- -- 1.854 m (6' 1) 81.6 kg (180 lb) 07/04/24 1012 (!) 152/92 97.1 F (36.2 C) Temporal 77 16 96 % -- -- General: Patient Awake. Tachypnea. Nasal flaring with conversation. [place] HEENT: Normalcephalic, atraumatic. Pupils equal, round, reactive, to light and accomodation B/L. Bilateral nares patent without obvious drainage. Oral mucosa moist, pink, intact without ulcers or lesions. Neck: No JVD, no thyromegaly, no anterior or posterior lymphadenopathy. Cardiovascular: Regular rate and rhythm, without murmurs, rubs, or gallops. Respiratory: Bilateral Upper and Lower Lobes anterior and posteriorly diminished with wheezes Abdomen: Soft, rounded, non-tender. Bowel sounds present x4 quadrants. No rebound. No organomegaly or masses noted upon deep palpation. Peg tube intact. Extremities: No edema, clubbing or cyanosis, pulses palpable 2+ distally. Skin: Warm, Dry, Intact. No obvious rashes or lesions noted. Neuro: Patient awake, alert, orientedx3. Cranial nerves 2-12 grossly intact upon seated examination. No focal deficit noted. Diagnostics: Admission on 07/04/2024 Component Date Value WBC (WHITE BLOOD COUNT) 07/04/2024 6.5 RBC 07/04/2024 5.07 HEMOGLOBIN (HGB) 07/04/2024 15.7 HEMATOCRIT (HCT) 07/04/2024 47.7 Mean Cell Volume 07/04/2024 94.1 Mean Cell HGB 07/04/2024 31.0 Mean Cell HGB Concentrat* 07/04/2024 33.0 RBC Distribution 07/04/2024 14.0 PLATELET COUNT 07/04/2024 160 Mean Platelet Volume 07/04/2024 9.9 DIFFERENTIAL TYPE 07/04/2024 AUTO DIFF NEUTROPHILS 07/04/2024 81.6 (H) LYMPHOCYTE 07/04/2024 7.8 (L) MONOCYTE % 07/04/2024 9.4 EOSINOPHIL % 07/04/2024 0.8 BASOPHIL % 07/04/2024 0.4 Absolute Neutrophil Count 07/04/2024 5.3 LYMPHOCYTES, ABSOLUTE 07/04/2024 0.5 (L) MONOCYTES, ABSOLUTE 07/04/2024 0.6 ABSOLUTE EOSINOPHIL COUNT 07/04/2024 0.1 ABSOLUTE BASOPHIL COUNT 07/04/2024 0.0 Glucose 07/04/2024 124 (H) BUN 07/04/2024 40 (H) CREATININE SERUM 07/04/2024 0.79 SODIUM 07/04/2024 154 (H) Potassium 07/04/2024 3.9 CHLORIDE 07/04/2024 106 CARBON DIOXIDE (CO2) 07/04/2024 36 (H) ESTIMATED GFR, NON AFRIC* 07/04/2024 102 ESTIMATED GFR, A* 07/04/2024 124 GFR COMMENT 07/04/2024 Average GFR for 70+ years old = 75. TROPONIN I, HIGH SENSITI* 07/04/2024 47 (H) BRAIN NATRIURETIC PEPTIDE 07/04/2024 61 C-Reactive Protein 07/04/2024 5.4 VITAMIN D 25 HYDROXY 07/04/2024 47.5 SEDIMENTATION RATE AUTOM* 07/04/2024 31 (H) PROCALCITONIN 07/04/2024 0.07 TROPONIN I, HIGH SENSITI* 07/04/2024 34 (H) Ct chest: 1. Multifocal infiltrates bilaterally suggestive of pneumonia. Findings within left lung could represent neoplasm, however, there is been notable change since 04/01/2024 with some previously seen lesions no longer present, and multiple new lesions suggesting this represents changing pattern of pneumonia. Consider follow-up CT chest in 2 months to document clearing. 2. Chronic mild emphysematous changes and bronchiectasis. Impression and Plan: Principal Problem: Pneumonia of both lower lobes due to infectious organism- hcap atb, nebs. Iv steroid. Follow cultures. Active Problems: Elevated troponin- cycle enzymes. Denies cp. Echo. Dysphagia- peg tube dependent. 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 T2 N1 G3, stage IIB, squamous cell carcinoma Patient that time was treated with chemoradiation therapy. [facility]. S/P percutaneous endoscopic gastrostomy (PEG) tube placement- cs nutrition for tube feeding. Acute respiratory failure with hypoxia- 84% on room air. He does have 02 at night only. Treat copd/pna. COPD exacerbation- atb. Nebs. Iv steroids Pulmonary lesion, right- follow with dr bojorquez Gastroesophageal reflux disease Dependence on nocturnal oxygen therapy 2lnc Hypernatremia- 2/2 dehydration, nutrition cs. D5w/0.45ns ivf. History of pulmonary embolism- on eliquis Code Status Full Code I personally spent 11 minutes in the management of this patient, the details of my visit are listed in my documentation above. Plan of care was initiated in collaboration with attending physician. Please note Portions of this note utilized [employer] dictation software, please excuse any typographical or grammatical errors Cosigned by Angela Fitch DO at 07/04/2024 7:51 PM EDT Associated attestation - Angela Fitch, - 07/04/2024 7:51 PM EDT Patient seen and examined independently 07/04/24. Meds, labs, and radiographs reviewed. Positive Cough/SOB/Hypoxia 84% on RA. All additional ROS NEG. 3-4 word conversational dyspnea. HEENT NC/AT PERRLA MM moist w/o ulceration No TM or JVD. Lungs diminished and heart tones regular on exam. Abdo +PEG C/D/I Soft NT/ND w/ BS. No LE edema or rash. No focal deficits noted on exam. 07/04/24 CT Chest reviewed- IMPRESSION: 1. Multifocal infiltrates bilaterally suggestive of pneumonia. Findings within left lung could represent neoplasm, however, there is been notable change since 04/01/2024 with some previously seen lesions no longer present, and multiple new lesions suggesting this represents changing pattern of pneumonia. Consider follow-up CT chest in 2 months to document clearing. 2. Chronic mild emphysematous changes and bronchiectasis. RA baseline. Na 154 Trop 47 CRP 5.4 Procal 0.07 Empiric HCAP Atbx w/ recent IP stay at OSH. I agree with assessments and plan of care. All questions and concerns addressed w/ patient at BS in regard to plan of care. I personally spent >50% of the total time spent of 26 min on this date's billable encounter including all of the MDM for this encounter. [facility] 05-18-2025 History and physical note History and Physical Examination Admit date: 07/04/2024 10:18 AM Chief Complaint: Chief Complaint Patient presents with Cough Pt. Arrives with with c/o coughing up secretions and choking on them. Pt. 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 History of Present Illness: Patient is a 73 y.o. male who presented to the hospital for evaluation of due to cough and congestion. Patient has a history of tongue and throat cancer. He does not swallow. History of recurrent aspiration pneumonia. He comes in stating it feels like his chest is congested and he has been coughing more. He is concerned that he has recurrence of his aspiration pneumonia. Ct chest showed multifocal infiltrates. Small nodules. Oxygen saturation was 84% on room air. He is now on 3 L of oxygen. Labs showed a sodium of 154 and a troponin of 34. Patient placed on broad-spectrum antibiotics. Oxygen has improved. 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 Chemo/RT with Cisplatin and RT and Ethyol. RT completed 02/28/09. Past Surgical History: Procedure Laterality Date EGD W/ PLACEMENT OR REPLACEMENT PEG 04/04/2023 NECK SURGERY 2008 for cancer INGUINAL HERNIA REPAIR 1988 REMOVAL CATARACT (PEM) Bilateral VASECTOMY Social History Tobacco Use Smoking status: Former Types: Cigarettes Smokeless tobacco: Never Substance Use Topics Alcohol use: No Family History Problem Relation Age of Onset No known problems Mother Heart Disease - Other Father Heart Disease - Other Brother Heart Disease - Other Other Coronary Artery Disease Other (Not in a hospital admission) No Known Allergies Review of Systems: Ten systems reviewed and found to be negative unless otherwise stated in the history and present illness. PHYSICAL EXAM: Patient Vitals for the past 8 hrs: BP Temp Temp src Pulse Resp SpO2 Height Weight 07/04/24 1331 112/63 -- -- 86 22 95 % -- -- 05/18/25 1229 -- -- -- -- -- 96 % -- -- 07/04/24 1218 101/69 -- -- 83 16 (!) 84 % -- -- 07/04/24 1126 115/76 -- -- 64 22 98 % -- -- 07/04/24 1014 -- -- -- -- -- -- 1.854 m (6' 1) 81.6 kg (180 lb) 07/04/24 1012 (!) 152/92 97.1 F (36.2 C) Temporal 77 16 96 % -- -- General: Patient Awake. Tachypnea. Nasal flaring with conversation. [place] HEENT: Normalcephalic, atraumatic. Pupils equal, round, reactive, to light and accomodation B/L. Bilateral nares patent without obvious drainage. Oral mucosa moist, pink, intact without ulcers or lesions. Neck: No JVD, no thyromegaly, no anterior or posterior lymphadenopathy. Cardiovascular: Regular rate and rhythm, without murmurs, rubs, or gallops. Respiratory: Bilateral Upper and Lower Lobes anterior and posteriorly diminished with wheezes Abdomen: Soft, rounded, non-tender. Bowel sounds present x4 quadrants. No rebound. No organomegaly or masses noted upon deep palpation. Peg tube intact. Extremities: No edema, clubbing or cyanosis, pulses palpable 2+ distally. Skin: Warm, Dry, Intact. No obvious rashes or lesions noted. Neuro: Patient awake, alert, orientedx3. Cranial nerves 2-12 grossly intact upon seated examination. No focal deficit noted. Diagnostics: Admission on 07/04/2024 Component Date Value WBC (WHITE BLOOD COUNT) 07/04/2024 6.5 RBC 07/04/2024 5.07 HEMOGLOBIN (HGB) 07/04/2024 15.7 HEMATOCRIT (HCT) 07/04/2024 47.7 Mean Cell Volume 07/04/2024 94.1 Mean Cell HGB 07/04/2024 31.0 Mean Cell HGB Concentrat* 07/04/2024 33.0 RBC Distribution 07/04/2024 14.0 PLATELET COUNT 07/04/2024 160 Mean Platelet Volume 07/04/2024 9.9 DIFFERENTIAL TYPE 07/04/2024 AUTO DIFF NEUTROPHILS 07/04/2024 81.6 (H) LYMPHOCYTE 07/04/2024 7.8 (L) MONOCYTE % 07/04/2024 9.4 EOSINOPHIL % 07/04/2024 0.8 BASOPHIL % 07/04/2024 0.4 Absolute Neutrophil Count 07/04/2024 5.3 LYMPHOCYTES, ABSOLUTE 07/04/2024 0.5 (L) MONOCYTES, ABSOLUTE 07/04/2024 0.6 ABSOLUTE EOSINOPHIL COUNT 07/04/2024 0.1 ABSOLUTE BASOPHIL COUNT 07/04/2024 0.0 Glucose 07/04/2024 124 (H) BUN 07/04/2024 40 (H) CREATININE SERUM 07/04/2024 0.79 SODIUM 07/04/2024 154 (H) Potassium 07/04/2024 3.9 CHLORIDE 07/04/2024 106 CARBON DIOXIDE (CO2) 07/04/2024 36 (H) ESTIMATED GFR, NON AFRIC* 07/04/2024 102 ESTIMATED GFR, A* 07/04/2024 124 GFR COMMENT 07/04/2024 Average GFR for 70+ years old = 75. TROPONIN I, HIGH SENSITI* 07/04/2024 47 (H) BRAIN NATRIURETIC PEPTIDE 07/04/2024 61 C-Reactive Protein 07/04/2024 5.4 VITAMIN D 25 HYDROXY 07/04/2024 47.5 SEDIMENTATION RATE AUTOM* 07/04/2024 31 (H) PROCALCITONIN 07/04/2024 0.07 TROPONIN I, HIGH SENSITI* 07/04/2024 34 (H) Ct chest: 1. Multifocal infiltrates bilaterally suggestive of pneumonia. Findings within left lung could represent neoplasm, however, there is been notable change since 04/01/2024 with some previously seen lesions no longer present, and multiple new lesions suggesting this represents changing pattern of pneumonia. Consider follow-up CT chest in 2 months to document clearing. 2. Chronic mild emphysematous changes and bronchiectasis. Impression and Plan: Principal Problem: Pneumonia of both lower lobes due to infectious organism- hcap atb, nebs. Iv steroid. Follow cultures. Active Problems: Elevated troponin- cycle enzymes. Denies cp. Echo. Dysphagia- peg tube dependent. 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 T2 N1 G3, stage IIB, squamous cell carcinoma Patient that time was treated with chemoradiation therapy. [facility]. S/P percutaneous endoscopic gastrostomy (PEG) tube placement- cs nutrition for tube feeding. Acute respiratory failure with hypoxia- 84% on room air. He does have 02 at night only. Treat copd/pna. COPD exacerbation- atb. Nebs. Iv steroids Pulmonary lesion, right- follow with dr bojorquez Gastroesophageal reflux disease Dependence on nocturnal oxygen therapy 2lnc Hypernatremia- 2/2 dehydration, nutrition cs. D5w/0.45ns ivf. History of pulmonary embolism- on eliquis Code Status Full Code I personally spent 11 minutes in the management of this patient, the details of my visit are listed in my documentation above. Plan of care was initiated in collaboration with attending physician. Please note Portions of this note utilized [employer] dictation software, please excuse any typographical or grammatical errors Cosigned by Angela Fitch DO at 07/04/2024 7:51 PM EDT Associated attestation - Angela Fitch DO - 07/04/2024 7:51 PM EDT Patient seen and examined independently 07/04/24. Meds, labs, and radiographs reviewed. Positive Cough/SOB/Hypoxia 84% on RA. All additional ROS NEG. 3-4 word conversational dyspnea. HEENT NC/AT PERRLA MM moist w/o ulceration No TM or JVD. Lungs diminished and heart tones regular on exam. Abdo +PEG C/D/I Soft NT/ND w/ BS. No LE edema or rash. No focal deficits noted on exam. 07/04/24 CT Chest reviewed- IMPRESSION: 1. Multifocal infiltrates bilaterally suggestive of pneumonia. Findings within left lung could represent neoplasm, however, there is been notable change since 04/01/2024 with some previously seen lesions no longer present, and multiple new lesions suggesting this represents changing pattern of pneumonia. Consider follow-up CT chest in 2 months to document clearing. 2. Chronic mild emphysematous changes and bronchiectasis. RA baseline. Na 154 Trop 47 CRP 5.4 Procal 0.07 Empiric HCAP Atbx w/ recent IP stay at OSH. I agree with assessments and plan of care. All questions and concerns addressed w/ patient at BS in regard to plan of care. I personally spent >50% of the total time spent of 26 min on this date's billable encounter including all of the MDM for this encounter. documented in this encounter [facility] 07-04-2024 Emergency department Note Anu at bedside [facility] 07-04-2024 Emergency department Note Anu at bedside Dr Jones speaking to Dr Fitch at this time. Paged Dr Fitch at this time. Emergency Room Note [facility] EMERGENCY DEPARTMENT Service Date:.07/04/24 PCP: Ulices Clark Chief Complaint: Chief Complaint Patient presents with Cough Pt. Arrives with with c/o coughing up secretions and choking on them. Pt. 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 HPI Amy Sun is a 73 y.o. male presents to the ED today due to cough and congestion. Patient has a history of tongue and throat cancer. He does not swallow. History of recurrent aspiration pneumonia. He comes in stating it feels like his chest is congested and he has been coughing more. He is concerned that he has recurrence of his aspiration pneumonia. Review of Systems: Review of Systems He has not noticed any fever at home. He is not complaining of chest pain but does feel congested bilaterally. Feels little rattle in his chest. He does not eat or drink. Fed through a tube. states he has had some abdominal pain in the past but he is not complain of any abdominal pain at this time. No vomiting or diarrhea. No dysuria. She had noticed any rash. No swelling or asymmetry of the extremities. Generally feels like he does not have much energy but he has no focal weakness or paresthesias. 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 Chemo/RT with Cisplatin and RT and Ethyol. RT completed 02/28/09. Past Surgical History: Past Surgical History: Procedure Laterality Date EGD W/ PLACEMENT OR REPLACEMENT PEG 04/04/2023 NECK SURGERY 2008 for cancer INGUINAL HERNIA REPAIR 1988 REMOVAL CATARACT (PEM) Bilateral VASECTOMY Allergies: No Known Allergies Medications: Patient's Medications New Prescriptions No medications on file Previous Medications ACETAMINOPHEN 325 MG TABLET Take 2 tablets by mouth Every 6 hours as needed. ALBUTEROL (2.5 MG/3ML) 0.083% INHALATION SOLUTION Take 3 mL by nebulization every 6 hours as needed for Shortness of Breath. APIXABAN 5 MG TABLET Take 1 tablet by mouth every 12 hours. BUDESONIDE 0.5 MG/2ML NEBULIZER SUSPENSION Inhale 2 mL 2 times daily. GARGLE, RINSE MOUTH AFTER USE DOXAZOSIN 4 MG TABLET Take 1 tablet by mouth at bedtime. FIBER PO 80ml/hr of Compleat 1.5 continuously for 24 hours. Use 1 carton of Benecalorie daily. Flush with 200ml water four times per day. FINASTERIDE 5 MG TABLET Take 1 tablet by mouth daily. FLUTICASONE 50 MCG/ACT SUSPENSION NASAL SPRAY 2 sprays by Nasal route daily. FORMOTEROL (PERFOROMIST) 20 MCG/2ML NEBU SOLN NEBULIZER SOLUTION Take 2 mL by nebulization 2 times daily. GARGLE, RINSE MOUTH AFTER USE FUROSEMIDE (LASIX) 20 MG TABLET Take 1 tablet by mouth daily. IPRATROPIUM-ALBUTEROL 0.5-2.5 (3) MG/3ML NEBULIZER SOLUTION Take 3 mL by nebulization every 4 hours as needed for Shortness of Breath, Wheezing, Cough or Breathing Treatment. LACTOBACILLUS RHAMNOSUS, GG, (CULTURELLE) CAPSULE CAPSULE Take 1 capsule by mouth daily. METOCLOPRAMIDE 5 MG TABLET Take 1 tablet by mouth Twice daily. NEBULIZER MISC 1 Device by Unknown route every 4 hours as needed. NUTRITIONAL SUPPLEMENTS (BOOST VHC) LIQUID 52 mL by Enteral route. ONDANSETRON 4 MG/5ML SOLUTION PANTOPRAZOLE (PROTONIX) [address] TABLET DR Take 1 tablet by mouth daily. PREDNISONE 10 MG TABLET Take 4 tablets by mouth for 3 days, then take 3 tablets by mouth for 3 days, then take 2 tablets by mouth for 3 days, 1 tablet for 3 days PROMETHEGAN 25 MG SUPPOSITORY SUPPOSITORY REVEFENACIN (YUPELRI) 175 MCG/3ML SOLUTION Inhale 3 mL daily. ROFLUMILAST (DALIRESP) 500 MCG TABLET Take 1 tablet by mouth daily. ROSUVASTATIN (CRESTOR) 5 MG TABLET Take 1 tablet by mouth daily. SERTRALINE (ZOLOFT) 25 MG TABLET Take 1 tablet by mouth daily. SPACER FOR INHALER PRESCRIPTION Use with inhaler as directed SUMATRIPTAN 50 MG TABLET Take 1 tablet by mouth Every 2 hours as needed. TAMSULOSIN HCL 0.4 MG CAPSULE TESTOSTERONE 25 MG/2.5GM (1%) GEL GEL Place 2.5 g on skin daily. TRAMADOL (ULTRAM) 50 MG TABLET Take 1 tablet by mouth every 4 hours as needed. VALSARTAN (DIOVAN) 160 MG TABLET Take 1 tablet by mouth daily. Check Blood pressure every day. If systolic blood pressure in > 130, then give 80 mg of valsartan (1/2 tablet), if < 130 then hold blood pressure medication. Modified Medications No medications on file Discontinued Medications No medications on file Family History: Family History Problem Relation Age of Onset No known problems Mother Heart Disease - Other Father Heart Disease - Other Brother Heart Disease - Other Other Coronary Artery Disease Other Social History: Social History Socioeconomic History Marital status: Spouse name: Not on file Number of children: Not on file Years of education: Not on file Highest education level: Not on file Occupational History Not on file Tobacco Use Smoking status: Former Types: Cigarettes Smokeless tobacco: Never Vaping Use Vaping status: Never Used Substance and Sexual Activity Alcohol use: No Drug use: No Sexual activity: Not on file Other Topics Concern Not on file Social History Narrative Not on file Social Drivers of Health Financial Resource Strain: Not on file Food Insecurity: No Food Insecurity (06/07/2024) Received from [facility] Hunger Vital Sign Worried About Running Out of Food in the Last Year: Never true Ran Out of Food in the Last Year: Never true Transportation Needs: No Transportation Needs (06/07/2024) Received from [facility] PRAPARE - Transportation Lack of Transportation (Medical): No Lack of Transportation (Non-Medical): No Physical Activity: Not on file Stress: Not on file Social Connections: Not on file Personal Safety: Not At Risk (06/07/2024) Received from [facility] Humiliation, Afraid, Rape, and Kick questionnaire Fear of Current or Ex-Partner: No Emotionally Abused: No Physically Abused: No Sexually Abused: No Housing Stability: Low Risk (06/07/2024) Received from [facility] Housing Stability Vital Sign Unable to Pay for Housing in the Last Year: No Number of Times Moved in the Last Year: 0 Homeless in the Last Year: No Physical Exam: Physical Exam 73-year-old male who is very hard of hearing. He is able to understand and respond when I speak to the point where I am almost yelling. He does speak in a gravelly voice. Sclerae and conjunctiva clear and moist. Lips are dry. Oral mucosa is dry. Throat is dry appearing. Neck is supple and trachea is midline. There is no crepitus or subcu emphysema. Neck veins are flat. Lungs do have symmetrical breath sounds. Occasional basilar rhonchi. No crackles or wheezes at this time. Heart is regular. Abdomen is soft and nontender. Feeding tube in place/button 2. He was slightly hypertensive on arrival BP 152/92. He had no flank or CVA tenderness. Skin is warm and dry. He will move extremities on command and sit up and cooperate with the exam. There was no tenderness over the back. Vital Signs During ED Visit Patient Vitals for the past 24 hrs: BP Temp Temp src Pulse Resp SpO2 Height Weight 07/04/24 1229 -- -- -- -- -- 96 % -- -- 07/04/24 1218 101/69 -- -- 83 16 (!) 84 % -- -- 07/04/24 1126 115/76 -- -- 64 22 98 % -- -- 07/04/24 1014 -- -- -- -- -- -- 1.854 m (6' 1) 81.6 kg (180 lb) 07/04/24 1012 (!) 152/92 97.1 F (36.2 C) Temporal 77 16 96 % -- -- Orders/Results: Orders Placed This Encounter BLOOD CULTURE, PERIPHERAL 1ST SITE BLOOD CULTURE, PERIPHERAL 2ND SITE CT CHEST WITHOUT CONTRAST CBC, EDIF, PLATELET CHEM 7 (LYTES,BUN,CREA,GLUC) Troponin I, High sensitivity B-TYPE NATRIURETIC PEPTIDE (BRAIN) OXYGEN ECG Pantoprazole (PROTONIX) injection 40 mg Ondansetron 4mg/2ml (ZOFRAN) injection 4 mg Ipratropium-albuterol (DUONEB) 0.5-2.5 (3) MG/3ML nebulizer solution 3 mL ceFEPIme (MAXIPIME) 2 g in sodium chloride 0.9% (MB PLUS) 100 mL (total volume) IVPB ceFEPIme (MAXIPIME) 2 g in sodium chloride 0.9% (MB PLUS) 100 mL (total volume) IVPB metroNIDAZOLE (FLAGYL) 500 mg in NaCl premix IVPB Doxycycline hyclate (VIBRAMYCIN) 100 mg in sodium chloride 0.9% (MB PLUS) 100 mL (total volume) IVPB Results for orders placed or performed during the hospital encounter of 07/04/24 CBC, EDIF, PLATELET Result Value Ref Range WBC (WHITE BLOOD COUNT) 6.5 3.6 - 11.0 10*3/uL RBC 5.07 4.0 - 6.1 10*6/uL HEMOGLOBIN (HGB) 15.7 14.0 - 18.0 G/DL HEMATOCRIT (HCT) 47.7 42.0 - 52.0 % Mean Cell Volume 94.1 80.0 - 100.0 FL Mean Cell HGB 31.0 26.0 - 35.0 PG Mean Cell HGB Concentration 33.0 27.0 - 37.0 G/DL RBC Distribution 14.0 11.5 - 14.5 % PLATELET COUNT 160 130 - 400 10*3/uL Mean Platelet Volume 9.9 7.4 - 11.0 FL DIFFERENTIAL TYPE AUTO DIFF % NEUTROPHILS 81.6 (H) 37.0 - 75.0 % LYMPHOCYTE 7.8 (L) 20.0 - 55.0 % MONOCYTE % 9.4 0.0 - 10.0 % EOSINOPHIL % 0.8 0.0 - 11.0 % BASOPHIL % 0.4 0.0 - 2.0 % Absolute Neutrophil Count 5.3 1.4 - 6.5 10*3/uL LYMPHOCYTES, ABSOLUTE 0.5 (L) 1.2 - 3.4 10*3/uL MONOCYTES, ABSOLUTE 0.6 0.0 - 0.7 10*3/uL ABSOLUTE EOSINOPHIL COUNT 0.1 0.0 - 0.7 10*3/uL ABSOLUTE BASOPHIL COUNT 0.0 0.0 - 0.2 10*3/uL CHEM 7 (LYTES,BUN,CREA,GLUC) Result Value Ref Range Glucose 124 (H) 70 - 100 MG/DL BUN 40 (H) 7 - 20 MG/DL CREATININE SERUM 0.79 0.70 - 1.20 MG/DL SODIUM 154 (H) 137 - 145 MMOL/L Potassium 3.9 3.5 - 5.1 MMOL/L CHLORIDE 106 98 - 107 MMOL/L CARBON DIOXIDE (CO2) 36 (H) 22 - 30 MMOL/L ESTIMATED GFR, NON AMER 102 ml/min/1.73sq.m ESTIMATED GFR, 124 ml/min/1.73sq.m GFR COMMENT Average GFR for 70+ years old = 75. TROPONIN I, HIGH SENSITIVITY Result Value Ref Range TROPONIN I, HIGH SENSITIVITY 47 (H) 0 - 20 pg/mL B-TYPE NATRIURETIC PEPTIDE (BRAIN) Result Value Ref Range BRAIN NATRIURETIC PEPTIDE 61 pg/mL Radiographic Imaging CT CHEST WITHOUT CONTRAST Final Result IMPRESSION: 1. Multifocal infiltrates bilaterally suggestive of pneumonia. Findings within left lung could represent neoplasm, however, there is been notable change since 04/01/2024 with some previously seen lesions no longer present, and multiple new lesions suggesting this represents changing pattern of pneumonia. Consider follow-up CT chest in 2 months to document clearing. 2. Chronic mild emphysematous changes and bronchiectasis. Procedures: Procedures Moderate Sedation Procedure: No I spoke with the patient and the immediately after interview and exam. Risks and benefits of chest CT were explained. I did explain to them that sometimes we may not see aspiration well on irregular chest x-ray. They voiced understanding and gave verbal consent for the CT of the chest. I have also asked the baseline laboratory studies be obtained and blood cultures. He is treated with DuoNeb aerosols and given a dose of Protonix and Zofran. ED Summary/MDM Once the CT was reviewed, the patient was treated with IV cefepime, doxycycline, and Flagyl. He is somewhat hypoxemic on room air we did have to place oxygen on him. I spoke with Dr. Weems. He is going to place the patient in the hospital for further observation, evaluation, and care. He asked the patient to be switched to Levaquin and cefepime. I spoke to Gregg Brennan who is the mid-level covering for the practice and he will arrange for those orders. I spoke with the nursing tire building supervisor who is making arrangements for a bed. I spoke with the patient and his who both voiced understanding and agreement with this plan. Clinical Impression: 1. Pneumonia of both lungs due to infectious organism, unspecified part of lung 2. Hypoxemia 3. Pharyngoesophageal dysphagia 4. Xerostomia due to radiotherapy 5. Presence of externally removable percutaneous endoscopic gastrostomy (PEG) tube 6. Hyperglycemia No follow-ups on file. New Prescriptions No medications on file Discontinued Medications No medications on file An After Visit Summary was printed and given to the patient with above information. . Sonu Jones MD 07/04/24 1245 EKG: Sinus bradycardia at 59 beats per minute. [place] is normal. CT interval is 156 milliseconds. QRS duration is 82 milliseconds. There is baseline irregularity and nonspecific STT wave changes present. No acute ST-elevation is seen. It is similar to previous EKG done June 14, 2023. Sonu Jones MD 07/04/24 1253 documented in this encounter [facility] 07-04-[address] Jonse speaking to Dr Fitch at this time. [facility] 07-04-2024 Emergency department Note Paged Dr Fitch at this time. [facility] 07-04-2024 Physician Emergency department Note Emergency Room Note [facility] EMERGENCY [facility]PARTMENT Service Date:.07/04/24 PCP: Ulices Clark Chief Complaint: Chief Complaint Patient presents with Cough Pt. Arrives with with c/o coughing up secretions and choking on them. Pt. 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 HPI Amy Sun is a 73 y.o. male presents to the ED today due to cough and congestion. Patient has a history of tongue and throat cancer. He does not swallow. History of recurrent aspiration pneumonia. He comes in stating it feels like his chest is congested and he has been coughing more. He is concerned that he has recurrence of his aspiration pneumonia. Review of Systems: Review of Systems He has not noticed any fever at home. He is not complaining of chest pain but does feel congested bilaterally. Feels little rattle in his chest. He does not eat or drink. Fed through a tube. states he has had some abdominal pain in the past but he is not complain of any abdominal pain at this time. No vomiting or diarrhea. No dysuria. She had noticed any rash. No swelling or asymmetry of the extremities. Generally feels like he does not have much energy but he has no focal weakness or paresthesias. 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 Chemo/RT with Cisplatin and RT and Ethyol. RT completed 02/28/09. Past Surgical History: Past Surgical History: Procedure Laterality Date EGD W/ PLACEMENT OR REPLACEMENT PEG 04/04/2023 NECK SURGERY 2008 for cancer INGUINAL HERNIA REPAIR 1988 REMOVAL CATARACT (PEM) Bilateral VASECTOMY Allergies: No Known Allergies Medications: Patient's Medications New Prescriptions No medications on file Previous Medications ACETAMINOPHEN 325 MG TABLET Take 2 tablets by mouth Every 6 hours as needed. ALBUTEROL (2.5 MG/3ML) 0.083% INHALATION SOLUTION Take 3 mL by nebulization every 6 hours as needed for Shortness of Breath. APIXABAN 5 MG TABLET Take 1 tablet by mouth every 12 hours. BUDESONIDE 0.5 MG/2ML NEBULIZER SUSPENSION Inhale 2 mL 2 times daily. GARGLE, RINSE MOUTH AFTER USE DOXAZOSIN 4 MG TABLET Take 1 tablet by mouth at bedtime. FIBER PO 80ml/hr of Compleat 1.5 continuously for 24 hours. Use 1 carton of Benecalorie daily. Flush with 200ml water four times per day. FINASTERIDE 5 MG TABLET Take 1 tablet by mouth daily. FLUTICASONE 50 MCG/ACT SUSPENSION NASAL SPRAY 2 sprays by Nasal route daily. FORMOTEROL (PERFOROMIST) 20 MCG/2ML NEBU SOLN NEBULIZER SOLUTION Take 2 mL by nebulization 2 times daily. GARGLE, RINSE MOUTH AFTER USE FUROSEMIDE (LASIX) 20 MG TABLET Take 1 tablet by mouth daily. IPRATROPIUM-ALBUTEROL 0.5-2.5 (3) MG/3ML NEBULIZER SOLUTION Take 3 mL by nebulization every 4 hours as needed for Shortness of Breath, Wheezing, Cough or Breathing Treatment. LACTOBACILLUS RHAMNOSUS, GG, (CULTURELLE) CAPSULE CAPSULE Take 1 capsule by mouth daily. METOCLOPRAMIDE 5 MG TABLET Take 1 tablet by mouth Twice daily. NEBULIZER MISC 1 Device by Unknown route every 4 hours as needed. NUTRITIONAL SUPPLEMENTS (BOOST C) LIQUID 52 mL by Enteral route. ONDANSETRON 4 MG/5ML SOLUTION PANTOPRAZOLE (PROTONIX) [address] TABLET DR Take 1 tablet by mouth daily. PREDNISONE 10 MG TABLET Take 4 tablets by mouth for 3 days, then take 3 tablets by mouth for 3 days, then take 2 tablets by mouth for 3 days, 1 tablet for 3 days PROMETHEGAN 25 MG SUPPOSITORY SUPPOSITORY REVEFENACIN (YUPELRI) 175 MCG/3ML SOLUTION Inhale 3 mL daily. ROFLUMILAST (DALIRESP) 500 MCG TABLET Take 1 tablet by mouth daily. ROSUVASTATIN (CRESTOR) 5 MG TABLET Take 1 tablet by mouth daily. SERTRALINE (ZOLOFT) 25 MG TABLET Take 1 tablet by mouth daily. SPACER FOR INHALER PRESCRIPTION Use with inhaler as directed SUMATRIPTAN 50 MG TABLET Take 1 tablet by mouth Every 2 hours as needed. TAMSULOSIN HCL 0.4 MG CAPSULE TESTOSTERONE 25 MG/2.5GM (1%) GEL GEL Place 2.5 g on skin daily. TRAMADOL (ULTRAM) 50 MG TABLET Take 1 tablet by mouth every 4 hours as needed. VALSARTAN (DIOVAN) 160 MG TABLET Take 1 tablet by mouth daily. Check Blood pressure every day. If systolic blood pressure in > 130, then give 80 mg of valsartan (1/2 tablet), if < 130 then hold blood pressure medication. Modified Medications No medications on file Discontinued Medications No medications on file Family History: Family History Problem Relation Age of Onset No known problems Mother Heart Disease - Other Father Heart Disease - Other Brother Heart Disease - Other Other Coronary Artery Disease Other Social History: Social History Socioeconomic History Marital status: Spouse name: Not on file Number of children: Not on file Years of education: Not on file Highest education level: Not on file Occupational History Not on file Tobacco Use Smoking status: Former Types: Cigarettes Smokeless tobacco: Never Vaping Use Vaping status: Never Used Substance and Sexual Activity Alcohol use: No Drug use: No Sexual activity: Not on file Other Topics Concern Not on file Social History Narrative Not on file Social Drivers of Health Financial Resource Strain: Not on file Food Insecurity: No Food Insecurity (06/07/2024) Received from [facility] Hunger Vital Sign Worried About Running Out of Food in the Last Year: Never true Ran Out of Food in the Last Year: Never true Transportation Needs: No Transportation Needs (06/07/2024) Received from [facility] PRAPARE - Transportation Lack of Transportation (Medical): No Lack of Transportation (Non-Medical): No Physical Activity: Not on file Stress: Not on file Social Connections: Not on file Personal Safety: Not At Risk (06/07/2024) Received from [facility] Humiliation, Afraid, Rape, and Kick questionnaire Fear of Current or Ex-Partner: No Emotionally Abused: No Physically Abused: No Sexually Abused: No Housing Stability: Low Risk (06/07/2024) Received from [facility] Stability Vital Sign Unable to Pay for Housing in the Last Year: No Number of Times Moved in the Last Year: 0 Homeless in the Last Year: No Physical Exam: Physical Exam 73-year-old male who is very hard of hearing. He is able to understand and respond when I speak to the point where I am almost yelling. He does speak in a gravelly voice. Sclerae and conjunctiva clear and moist. Lips are dry. Oral mucosa is dry. Throat is dry appearing. Neck is supple and trachea is midline. There is no crepitus or subcu emphysema. Neck veins are flat. Lungs do have symmetrical breath sounds. Occasional basilar rhonchi. No crackles or wheezes at this time. Heart is regular. Abdomen is soft and nontender. Feeding tube in place/button 2. He was slightly hypertensive on arrival BP 152/92. He had no flank or CVA tenderness. Skin is warm and dry. He will move extremities on command and sit up and cooperate with the exam. There was no tenderness over the back. Vital Signs During ED Visit Patient Vitals for the past 24 hrs: BP Temp Temp src Pulse Resp SpO2 Height Weight 07/04/24 1229 -- -- -- -- -- 96 % -- -- 07/04/24 1218 101/69 -- -- 83 16 (!) 84 % -- -- 07/04/24 1126 115/76 -- -- 64 22 98 % -- -- 07/04/24 1014 -- -- -- -- -- -- 1.854 m (6' 1) 81.6 kg (180 lb) 07/04/24 1012 (!) 152/92 97.1 F (36.2 C) Temporal 77 16 96 % -- -- Orders/Results: Orders Placed This Encounter BLOOD CULTURE, PERIPHERAL 1ST SITE BLOOD CULTURE, PERIPHERAL 2ND SITE CT CHEST WITHOUT CONTRAST CBC, EDIF, PLATELET CHEM 7 (LYTES,BUN,CREA,GLUC) Troponin I, High sensitivity B-TYPE NATRIURETIC PEPTIDE (BRAIN) OXYGEN ECG Pantoprazole (PROTONIX) injection 40 mg Ondansetron 4mg/2ml (ZOFRAN) injection 4 mg Ipratropium-albuterol (DUONEB) 0.5-2.5 (3) MG/3ML nebulizer solution 3 mL ceFEPIme (MAXIPIME) 2 g in sodium chloride 0.9% (MB PLUS) 100 mL (total volume) IVPB ceFEPIme (MAXIPIME) 2 g in sodium chloride 0.9% (MB PLUS) 100 mL (total volume) IVPB metroNIDAZOLE (FLAGYL) 500 mg in NaCl premix IVPB Doxycycline hyclate (VIBRAMYCIN) 100 mg in sodium chloride 0.9% (MB PLUS) 100 mL (total volume) IVPB Results for orders placed or performed during the hospital encounter of 07/04/24 CBC, EDIF, PLATELET Result Value Ref Range WBC (WHITE BLOOD COUNT) 6.5 3.6 - 11.0 10*3/uL RBC 5.07 4.0 - 6.1 10*6/uL HEMOGLOBIN (HGB) 15.7 14.0 - 18.0 G/DL HEMATOCRIT (HCT) 47.7 42.0 - 52.0 % Mean Cell Volume 94.1 80.0 - 100.0 FL Mean Cell HGB 31.0 26.0 - 35.0 PG Mean Cell HGB Concentration 33.0 27.0 - 37.0 G/DL RBC Distribution 14.0 11.5 - 14.5 % PLATELET COUNT 160 130 - 400 10*3/uL Mean Platelet Volume 9.9 7.4 - 11.0 FL DIFFERENTIAL TYPE AUTO DIFF % NEUTROPHILS 81.6 (H) 37.0 - 75.0 % LYMPHOCYTE 7.8 (L) 20.0 - 55.0 % MONOCYTE % 9.4 0.0 - 10.0 % EOSINOPHIL % 0.8 0.0 - 11.0 % BASOPHIL % 0.4 0.0 - 2.0 % Absolute Neutrophil Count 5.3 1.4 - 6.5 10*3/uL LYMPHOCYTES, ABSOLUTE 0.5 (L) 1.2 - 3.4 10*3/uL MONOCYTES, ABSOLUTE 0.6 0.0 - 0.7 10*3/uL ABSOLUTE EOSINOPHIL COUNT 0.1 0.0 - 0.7 10*3/uL ABSOLUTE BASOPHIL COUNT 0.0 0.0 - 0.2 10*3/uL CHEM 7 (LYTES,BUN,CREA,GLUC) Result Value Ref Range Glucose 124 (H) 70 - 100 MG/DL BUN 40 (H) 7 - 20 MG/DL CREATININE SERUM 0.79 0.70 - 1.20 MG/DL SODIUM 154 (H) 137 - 145 MMOL/L Potassium 3.9 3.5 - 5.1 MMOL/L CHLORIDE 106 98 - 107 MMOL/L CARBON DIOXIDE (CO2) 36 (H) 22 - 30 MMOL/L ESTIMATED GFR, NON AMER 102 ml/min/1.73sq.m ESTIMATED GFR, 124 ml/min/1.73sq.m GFR COMMENT Average GFR for 70+ years old = 75. TROPONIN I, HIGH SENSITIVITY Result Value Ref Range TROPONIN I, HIGH SENSITIVITY 47 (H) 0 - 20 pg/mL B-TYPE NATRIURETIC PEPTIDE (BRAIN) Result Value Ref Range BRAIN NATRIURETIC PEPTIDE 61 pg/mL Radiographic Imaging CT CHEST WITHOUT CONTRAST Final Result IMPRESSION: 1. Multifocal infiltrates bilaterally suggestive of pneumonia. Findings within left lung could represent neoplasm, however, there is been notable change since 04/01/2024 with some previously seen lesions no longer present, and multiple new lesions suggesting this represents changing pattern of pneumonia. Consider follow-up CT chest in 2 months to document clearing. 2. Chronic mild emphysematous changes and bronchiectasis. Procedures: Procedures Moderate Sedation Procedure: No I spoke with the patient and the immediately after interview and exam. Risks and benefits of chest CT were explained. I did explain to them that sometimes we may not see aspiration well on irregular chest x-ray. They voiced understanding and gave verbal consent for the CT of the chest. I have also asked the baseline laboratory studies be obtained and blood cultures. He is treated with DuoNeb aerosols and given a dose of Protonix and Zofran. ED Summary/MDM Once the CT was reviewed, the patient was treated with IV cefepime, doxycycline, and Flagyl. He is somewhat hypoxemic on room air we did have to place oxygen on him. I spoke with Dr. Weems. He is going to place the patient in the hospital for further observation, evaluation, and care. He asked the patient to be switched to Levaquin and cefepime. I spoke to Gregg Brennan who is the mid-level covering for the practice and he will arrange for those orders. I spoke with the nursing tire building supervisor who is making arrangements for a bed. I spoke with the patient and his who both voiced understanding and agreement with this plan. Clinical Impression: 1. Pneumonia of both lungs due to infectious organism, unspecified part of lung 2. Hypoxemia 3. Pharyngoesophageal dysphagia 4. Xerostomia due to radiotherapy 5. Presence of externally removable percutaneous endoscopic gastrostomy (PEG) tube 6. Hyperglycemia No follow-ups on file. New Prescriptions No medications on file Discontinued Medications No medications on file An After Visit Summary was printed and given to the patient with above information. . Sonu Jones MD 07/04/24 1249 EKG: Sinus bradycardia at 59 beats per minute. [place] is normal. CT interval is 156 milliseconds. QRS duration is 82 milliseconds. There is baseline irregularity and nonspecific STT wave changes present. No acute ST-elevation is seen. It is similar to previous EKG done June 14, 2023. Sonu Jones MD 07/04/24 1256 [facility] 06-28-2024 Telephone encounter Note KISHOR is requesting a refill for Requested Prescriptions Pending Prescriptions Disp Refills fluticasone propionate (FLONASE) 50 mcg/actuation nasal spray 16 g 5 Sig: Instill 2 (two) sprays into each nostril daily . Last refill: 11/19/2023 16 g with 5 rf Last appt: 06/15/2024 Upcoming appt (when is it due or is it scheduled): 09/14/2024 Follow up: Refill pending for review without additional follow up based on information above. [facility] 06-28-2024 Miscellaneous Notes KISHOR is requesting a refill for Requested Prescriptions Pending Prescriptions Disp Refills fluticasone propionate (FLONASE) 50 mcg/actuation nasal spray 16 g 5 Sig: Instill 2 (two) sprays into each nostril daily . Last refill: 11/19/2023 16 g with 5 rf Last appt: 06/15/2024 Upcoming appt (when is it due or is it scheduled): 09/14/2024 Follow up: Refill pending for review without additional follow up based on information above. documented in this encounter [facility] 06-24-2024 Telephone encounter Note KISHOR is requesting a refill for Requested Prescriptions Pending Prescriptions Disp Refills celecoxib (ELYXYB) 120 mg/4.8 mL (25 mg/mL) Soln 144 mL 1 Sig: Take 120 mg per G-tube daily . Last refill: 06/15/2024 celecoxib (ELYXYB) 120 mg/4.8 mL (25 mg/mL) Soln, 144 mL, 1 refill The prescription submitted on 06/15/2024 to [facility] was never received. Could you please resubmit? Thank you very much. Last appt: 06/15/2024 Upcoming appt (when is it due or is it scheduled): 09/14/2024 Follow up: Refill pending for review without additional follow up based on information above. [facility] 06-24-2024 Miscellaneous Notes KISHOR is requesting a refill for Requested Prescriptions Pending Prescriptions Disp Refills celecoxib (ELYXYB) 120 mg/4.8 mL (25 mg/mL) Soln 144 mL 1 Sig: Take 120 mg per G-tube daily . Last refill: 06/15/2024 celecoxib (ELYXYB) 120 mg/4.8 mL (25 mg/mL) Soln, 144 mL, 1 refill The prescription submitted on 06/15/2024 to [facility] was never received. Could you please resubmit? Thank you very much. Last appt: 06/15/2024 Upcoming appt (when is it due or is it scheduled): 09/14/2024 Follow up: Refill pending for review without additional follow up based on information above. documented in this encounter [facility] 06-20-2024 Evaluation + Plan note Associated Problem(s): History of aspiration pneumonia Recent aspiration pneumonia, hospitalized for 2 days last week. Completed Augmentin. He is high risk for aspiration pneumonia due to dysphagia 2/2 tongue cancer. - Monitor for S/S aspiration pneumonia [facility] 06-20-2024 Miscellaneous Notes Associated Problem(s): History of aspiration pneumonia Recent aspiration pneumonia, hospitalized for 2 days last week. Completed Augmentin. He is high risk for aspiration pneumonia due to dysphagia 2/2 tongue cancer. - Monitor for S/S aspiration pneumonia Associated Problem(s): Anxiety and depression Mood is much improved and stable on sertraline 50 mg daily. - Continue current dose - Continue to monitor mood Associated Problem(s): Degenerative joint disease Previously on tramadol with previous PCP. Would like to avoid opiates if possible. All medication is administered through G-tube due to to dysphagia 2/2 history of tongue cancer. - Start celecoxib daily, liquid formulation ordered for G-tube use - Follow-up in 3 months or sooner as needed documented in this encounter [facility] 06-20-2024 Evaluation + Plan note Associated Problem(s): Anxiety and depression Mood is much improved and stable on sertraline 50 mg daily. - Continue current dose - Continue to monitor mood [facility] 06-20-2024 Evaluation + Plan note Associated Problem(s): Degenerative joint disease Previously on tramadol with previous PCP. Would like to avoid opiates if possible. All medication is administered through G-tube due to to dysphagia 2/2 history of tongue cancer. - Start celecoxib daily, liquid formulation ordered for G-tube use - Follow-up in 3 months or sooner as needed [facility] 06-18-2024 Note HNO ID: [id number] Author: ZOYA HILLMAN RD Service: ? Author Type: Registered Dietitian Type: Progress Notes Filed: 06/18/2024 16:09 Note Text: Oncology Nutrition Therapy Reassessment I have communicated my name and active licensure. The patient's identity and physical location were verified at the time of this visit. Either the patient or their legal technical services representative has been informed of the risks and benefits of -- and alternatives to -- treatment through a remote evaluation and consents to proceed with the evaluation remotely. RECOMMENDED MALNUTRITION DIAGNOSIS: SEVERE PROTEIN-CALORIE MALNUTRITION In the context of Chronic Illness or Injury based on: Unintentional Weight Loss: >7.5% in 3 months Insufficient Energy Intake: Less than 75% energy intake compared to estimated needs for greater than or equal to 1 month Nutrition Diagnosis: Swallowing difficulty, related to, dysphagia 2/2 head and neck cancer, as evidenced by PEG placement and diagnosis. Nutrition Intervention: -Use of PEG feeding tube for 100% nutrition needs - Increase water intake to a total of 1 liter in addition to formula per day. -Use salt and soda mouth rinse - utilize good technique for medication administration via PEG Nutrition Monitoring AND Evaluation: EN intake Wt status Biochemical Markers Skin integrity Plan of care Patient Condition: Pt presents for nutrition counseling for history of malignant neoplasm of base of tongue with new onset dysphagia and Feeding tube placement 2/2 cancer. Pt had original PEG placed on 04/07/[address] Godoy. 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 with rotary filter operator: 3852-1780 calories (20-25 wen/kg) 12 hours per day - cyclical via pump Recommended use of Compleat 1.4 at 104ml/hr x 12 hours Fluids - adequate EN: Water flush: 25oz PO: 6 popsicles throughout day 06/18/24: Stable with newly replace feeding tube which will be replaced again in August Has [place] balloon low profile tube with right angle extension set Since our last visit he has been hospitalized again for double pneumonia Weight 185lbs - stable EN intake: Boost [facility] (530cal) x 3 Compleat 1.4 HIP:[facility] Surgeon: Alejandra - send order for adaptor with Luci Instructed patient to ask for order for [place] extension set and send to [facility] [place]. Continue nutrition intervention as current. Will check in three months Readiness to Learn: Cognitive ability: Alert and oriented Motivation to learn: Eager Family support: High - Very involved in pt care Instruction provided to: Patient and Spouse Patient learns best by: Multiple Methods Factors affecting learning: None Physical limitations affecting learning: None Anthropometrics: HEIGHT/WEIGHT/BSA Height BSA (m2) Weight 01/07/2020 2.3 m2 223 lb 6.4 oz 11/23/2020 2.31 m2 226 lb 1.6 oz 02/05/2021 188 cm (6' 2.02) 2.32 m2 226 lb 6.4 oz 05/15/2021 188 cm (6' 2.02) 2.23 m2 210 lb 8 oz 11/12/2021 2.23 m2 209 lb 6.4 oz 12/13/2021 2.2 m2 203 lb 11.2 oz 06/10/2022 2.19 m2 202 lb 14.4 oz 11/27/2022 188 cm (6' 2.02) 2.1 m2 186 lb 8 oz 12/04/2022 2.12 m2 189 lb 02/05/2023 188 cm (6' 2.02) 2.05 m2 177 lb 14.4 oz 02/14/2023 2.03 m2 174 lb 11.2 oz 02/28/2023 188 cm (6' 2.02) 2.06 m2 178 lb 9.6 oz 03/21/2023 188 cm (6' 2.02) 2.03 m2 174 lb 9.7 oz 05/29/2023 2.01 m2 170 lb 13.7 oz 06/04/2023 1.96 m2 162 lb 11.2 oz 06/23/2023 188 cm (6' 2.02) 1.94 m2 158 lb 4.6 oz 07/08/2023 188 cm (6' 2.02) 1.9 m2 152 lb 6.4 oz 07/23/2023 188 cm (6' 2.02) 1.98 m2 164 lb 14.5 oz 01/26/2024 2.03 m2 173 lb 11.6 oz Estimated body mass index is 22.3 kg/m? as calculated from the following: Height as of 07/23/23: 188 cm (6' 2.02). Weight as of 01/26/24: 78.8 kg (173 lb 11.6 oz). Resting Metabolic Rate: 1616 Dosing Weight: 77.5 kg Estimated kilocalorie needs: 0085-2259 kilocalories determined by 35-40 kcal/kg Estimated protein needs: 93-116 grams determined by 1.2-1.5 g/kg Dosing weight Estimated fluid needs: 2068-8749 milliliters based on 1 mL per kcal Allergies: Patient has no known allergies. Medications: Current Outpatient Medications Medication Sig Dispense Refill apixaban (ELIQUIS) 5 mg tab(s) Take 5 mg by mouth two times a day. formoterol fumarate (PERFOROMIST) 20 mcg/2 mL nebu Inhale 20 mcg as instructed. revefenacin (YUPELRI) 175 mcg/3 mL solution for nebulization Inhale 175 mcg as instructed once daily. tamsulosin (FLOMAX) 0.4 mg Take 0.4 mg by mouth once daily. famotidine (PEPCID) 20 mg tablet Take 20 mg by mouth. budesonide (PULMICORT) 0.5 mg/2 mL nebulizer solution Inhale 0.5 mg as instructed. nut tx, lact-reduced, iron (BOOST VHC) 0.09-2.25 gram-kcal/mL liqd 52 mL by FEEDING TUBE route continuous. Adminster with infinity feeding pump. Flush with an additional 33oz o (more content not included)... [facility] 06-18-2024 History of Present illness Narrative Oncology Nutrition Therapy Reassessment I have communicated my name and active licensure. The patient's identity and physical location were verified at the time of this visit. Either the patient or their legal technical services representative has been informed of the risks and benefits of -- and alternatives to -- treatment through a remote evaluation and consents to proceed with the evaluation remotely. RECOMMENDED MALNUTRITION DIAGNOSIS: SEVERE PROTEIN-CALORIE MALNUTRITION In the context of Chronic Illness or Injury based on: Unintentional Weight Loss: >7.5% in 3 months Insufficient Energy Intake: Less than 75% energy intake compared to estimated needs for greater than or equal to 1 month Nutrition Diagnosis: Swallowing difficulty, related to, dysphagia 2/2 head and neck cancer, as evidenced by PEG placement and diagnosis. Nutrition Intervention: -Use of PEG feeding tube for 100% nutrition needs - Increase water intake to a total of 1 liter in addition to formula per day. -Use salt and soda mouth rinse - utilize good technique for medication administration via PEG Nutrition Monitoring & Evaluation: EN intake Wt status Biochemical Markers Skin integrity Plan of care Patient Condition: Pt presents for nutrition counseling for history of malignant neoplasm of base of tongue with new onset dysphagia and Feeding tube placement 2/2 cancer. Pt had original PEG placed on 04/07/[address] Godoy. 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 with rotary filter operator: 7239-1952 calories (20-25 wen/kg) 12 hours per day - cyclical via pump Recommended use of Compleat 1.4 at 104ml/hr x 12 hours Fluids - adequate EN: Water flush: 25oz PO: 6 popsicles throughout day 06/18/24: Stable with newly replace feeding tube which will be replaced again in August Has Lake balloon low profile tube with right angle extension set Since our last visit he has been hospitalized again for double pneumonia Weight 185lbs - stable EN intake: Boost [facility] (530cal) x 3 Compleat 1.4 HIP:[employer] Surgeon: Alejandra - send order for adaptor with Luci Instructed patient to ask for order for Lake extension set and send to [facility] [place]. Continue nutrition intervention as current. Will check in three months Readiness to Learn: Cognitive ability: Alert and oriented Motivation to learn: Eager Family support: High - Very involved in pt care Instruction provided to: Patient and Spouse Patient learns best by: Multiple Methods Factors affecting learning: None Physical limitations affecting learning: None Anthropometrics: HEIGHT/WEIGHT/BSA Height BSA (m2) Weight 01/07/2020 2.3 m2 223 lb 6.4 oz 11/23/2020 2.31 m2 226 lb 1.6 oz 02/05/2021 188 cm (6' 2.02) 2.32 m2 226 lb 6.4 oz 05/15/2021 188 cm (6' 2.02) 2.23 m2 210 lb 8 oz 11/12/2021 2.23 m2 209 lb 6.4 oz 12/13/2021 2.2 m2 203 lb 11.2 oz 06/10/2022 2.19 m2 202 lb 14.4 oz 11/27/2022 188 cm (6' 2.02) 2.1 m2 186 lb 8 oz 12/04/2022 2.12 m2 189 lb 02/05/2023 188 cm (6' 2.02) 2.05 m2 177 lb 14.4 oz 02/14/2023 2.03 m2 174 lb 11.2 oz 02/28/2023 188 cm (6' 2.02) 2.06 m2 178 lb 9.6 oz 03/21/2023 188 cm (6' 2.02) 2.03 m2 174 lb 9.7 oz 05/29/2023 2.01 m2 170 lb 13.7 oz 06/04/2023 1.96 m2 162 lb 11.2 oz 06/23/2023 188 cm (6' 2.02) 1.94 m2 158 lb 4.6 oz 07/08/2023 188 cm (6' 2.02) 1.9 m2 152 lb 6.4 oz 07/23/2023 188 cm (6' 2.02) 1.98 m2 164 lb 14.5 oz 01/26/2024 2.03 m2 173 lb 11.6 oz Estimated body mass index is 22.3 kg/m as calculated from the following: Height as of 07/23/23: 188 cm (6' 2.02). Weight as of 01/26/24: 78.8 kg (173 lb 11.6 oz). Resting Metabolic Rate: 1616 Dosing Weight: 77.5 kg Estimated kilocalorie needs: 6417-3733 kilocalories determined by 35-40 kcal/kg Estimated protein needs: 93-116 grams determined by 1.2-1.5 g/kg Dosing weight Estimated fluid needs: 9640-1751 milliliters based on 1 mL per kcal Allergies: Patient has no known allergies. Medications: Current Outpatient Medications Medication Sig Dispense Refill apixaban (ELIQUIS) 5 mg tab(s) Take 5 mg by mouth two times a day. formoterol fumarate (PERFOROMIST) 20 mcg/2 mL nebu Inhale 20 mcg as instructed. revefenacin (YUPELRI) 175 mcg/3 mL solution for nebulization Inhale 175 mcg as instructed once daily. tamsulosin (FLOMAX) 0.4 mg Take 0.4 mg by mouth once daily. famotidine (PEPCID) 20 mg tablet Take 20 mg by mouth. budesonide (PULMICORT) 0.5 mg/2 mL nebulizer solution Inhale 0.5 mg as instructed. nut tx, lact-reduced, iron (BOOST VHC) 0.09-2.25 gram-kcal/mL liqd 52 mL by FEEDING TUBE route continuous. Adminster with infinity feeding pump. Flush with an additional 33oz of water daily (divided). 46273 mL 11 iv contrast (will be provided with radiology test) CT Chest W -Inject, intravenously, once for 1 dose.No IV access, insert saline lock prior to the beginning of sedation, infusion, injection of imaging exam. Discontinue saline lock post exam. If Pt. has a central line or IVAD, may access for administration according to line specific nursing protocol. Once exam is complete flush line and de-access according to line specific nursing protocol in the CT contrast administration guidelines link. (Patient not taking: Reported on 01/26/2024) 1 Each 0 iv contrast (will be provided with radiology test) CT ABD/PEL -Inject, intravenously, once for 1 dose.No IV access, insert saline lock prior to the beginning of sedation, infusion, injection of imaging exam. Discontinue saline lock post exam. If Pt. has a central line or IVAD, may access for administration according to line specific nursing protocol. Once exam is complete flush line and de-access according to line specific nursing protocol in the CT contrast administration guidelines link. (Patient not taking: Reported on 01/26/2024) 1 Each 0 enteric contrast (will be provided with radiology test) For CT ABD/PEL W IVCON Routine order Administer, As Directed One Time Only, via Oral, Rectal, both Oral and Rectal, Enteric Tube, Stoma or Indwelling Catheter, Enteric Contrast as designated per enteric contrast guidelines (Patient not taking: Reported on 01/26/2024) 1 Each 0 nutritional supplement-fiber (COMPLEAT 1.5) 0.07 gram-1.5 kcal/mL liqd 80ml/hr of Compleat 1.5 continuously for 24 hours. Use 1 carton of Benecalorie daily. Flush with 200ml water four times per day. 95274 mL 11 sertraline (ZOLOFT) 25 mg tablet Take 1 tablet by mouth once daily. furosemide (LASIX) 20 mg tablet Take 20 mg by mouth once daily. (Patient not taking: Reported on 01/26/2024) sulindac (CLINORIL) 150 mg tablet pilocarpine (ISOPTO CARPINE) 2 % ophthalmic solution 1 Drop. rosuvastatin (CRESTOR) 5 mg tablet Take 5 mg by mouth once daily. pantoprazole DR (PROTONIX) 40 mg tablet propylene glycol/peg 400 (BLINK TEARS LUBRICATING) Eye Drops Use 1 Drop in both eyes as needed. traMADol (ULTRAM) 50 mg tablet Take 1 tablet by mouth twice daily. testosterone (ANDROGEL) 50 mg/5 g (1%) gel Apply 0.5 Tubes as directed once daily. No current facility-administered medications for this visit. Need for Follow up: 3 mo Referred/Supervised by: Dr. Nitin LEMA Billing Type: Re-assess/15 min 2 units Billed Time: 30 minutes Signed by: Zoya Hillman RD, LD documented in this encounter [facility] 06-18-2024 Note Education (SARAHI) ---- AMY SUN ([id number]) 1950 M Date Time Provider Department 06/18/24 2:30 PM ZOYA HILLMAN Reason for Visit: Nutrition Telephone [2013] Primary Visit Diagnosis: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) [C01] Other Visit Diagnosis:Severe protein-calorie malnutrition (HCC) [E43] During your visit today, we recorded the following information about you: Allergies As of Date: 06/18/2024 (No Known Allergies) Date Reviewed: 06/18/2024 Reviewed by: Zoya Hillman RD - Fully Assessed Prescriptions as of 06/18/2024 - apixaban (ELIQUIS) 5 mg tab(s) Take 5 mg by mouth two times a day. - formoterol fumarate (PERFOROMIST) 20 mcg/2 mL nebu Inhale 20 mcg as instructed. - revefenacin (YUPELRI) 175 mcg/3 mL solution for nebulization Inhale 175 mcg as instructed once daily. - tamsulosin (FLOMAX) 0.4 mg Take 0.4 mg by mouth once daily. - famotidine (PEPCID) 20 mg tablet Take 20 mg by mouth. - budesonide (PULMICORT) 0.5 mg/2 mL nebulizer solution Inhale 0.5 mg as instructed. - nut tx, lact-reduced, iron (BOOST VHC) 0.09-2.25 gram-kcal/mL liqd 52 mL by FEEDING TUBE route continuous. Adminster with infinity feeding pump. Flush with an additional 33oz of water daily (divided). - iv contrast (will be provided with radiology test) CT Chest W -Inject, intravenously, once for 1 dose.No IV access, insert saline lock prior to the beginning of sedation, infusion, injection of imaging exam. Discontinue saline lock post exam. If Pt. has a central line or IVAD, may access for administration according to line specific nursing protocol. Once exam is complete flush line and de-access according to line specific nursing protocol in the CT contrast administration guidelines link. - iv contrast (will be provided with radiology test) CT ABD/PEL -Inject, intravenously, once for 1 dose.No IV access, insert saline lock prior to the beginning of sedation, infusion, injection of imaging exam. Discontinue saline lock post exam. If Pt. has a central line or IVAD, may access for administration according to line specific nursing protocol. Once exam is complete flush line and de-access according to line specific nursing protocol in the CT contrast administration guidelines link. - enteric contrast (will be provided with radiology test) For CT ABD/PEL W IVCON Routine order Administer, As Directed One Time Only, via Oral, Rectal, both Oral and Rectal, Enteric Tube, Stoma or Indwelling Catheter, Enteric Contrast as designated per enteric contrast guidelines - nutritional supplement-fiber (COMPLEAT 1.5) 0.07 gram-1.5 kcal/mL liqd 80ml/hr of Compleat 1.5 continuously for 24 hours. Use 1 carton of Benecalorie daily. Flush with 200ml water four times per day. - sertraline (ZOLOFT) 25 mg tablet Take 1 tablet by mouth once daily. - furosemide (LASIX) 20 mg tablet Take 20 mg by mouth once daily. - sulindac (CLINORIL) 150 mg tablet - pilocarpine (ISOPTO CARPINE) 2 % ophthalmic solution 1 Drop. - rosuvastatin (CRESTOR) 5 mg tablet Take 5 mg by mouth once daily. - pantoprazole DR (PROTONIX) 40 mg tablet - propylene glycol/peg 400 (BLINK TEARS LUBRICATING) Eye Drops Use 1 Drop in both eyes as needed. - traMADol (ULTRAM) 50 mg tablet Take 1 tablet by mouth twice daily. - testosterone (ANDROGEL) 50 mg/5 g (1%) gel Apply 0.5 Tubes as directed once daily. Encounter Status:Closed by ZOYA HILLMAN on 06/18/24 [facility] 06-15-2024 History of Present illness Narrative Assessment/Plan: Degenerative joint disease Previously on tramadol with previous PCP. Would like to avoid opiates if possible. All medication is administered through G-tube due to to dysphagia 2/2 history of tongue cancer. - Start celecoxib daily, liquid formulation ordered for G-tube use - Follow-up in 3 months or sooner as needed Anxiety and depression Mood is much improved and stable on sertraline 50 mg daily. - Continue current dose - Continue to monitor mood History of aspiration pneumonia Recent aspiration pneumonia, hospitalized for 2 days last week. Completed Augmentin. He is high risk for aspiration pneumonia due to dysphagia 2/2 tongue cancer. - Monitor for S/S aspiration pneumonia Subjective: Amy Sun is a 73 y.o. male Chief Complaint Patient presents with Follow-up 3m f/u Anxiety and depression Patient presents for routine follow-up. He was recently admitted to the hospital for 2 days for aspiration pneumonia in his RLL. He was on Unasyn in the hospital, and discharged with Augmentin twice daily x 5 days, which he has completed. He is high risk for this due to dysphagia 2/2 his history of tongue cancer and radiation. Not sleeping well due to arthritis pain. He ran out of tramadol from previous PCP and has been taking aspirin. He occasionally uses antihistamine for sleeping. Mood is still doing well on sertraline. Appetite not good, but seeing african history professor next week. The following portions of the patient's history were reviewed and updated as appropriate: allergies, current medications, past family history, past medical history, past social history, past surgical history and problem list. Review of Systems Objective: PACU Vitals 06/15/24 1452 BP: 136/80 Pulse: (!) 56 Resp: 14 SpO2: 91% Physical Exam Constitutional: General: He is not in acute distress. Appearance: Normal appearance. He is not ill-appearing, toxic-appearing or diaphoretic. Cardiovascular: Rate and Rhythm: Normal rate and regular rhythm. Heart sounds: No murmur heard. No gallop. Pulmonary: Effort: Pulmonary effort is normal. No respiratory distress. Breath sounds: Normal breath sounds. No wheezing or rales. Skin: General: Skin is warm and dry. Coloration: Skin is not jaundiced or pale. Neurological: Mental Status: He is alert. Mental status is at baseline. Psychiatric: Mood and Affect: Mood normal. For any new medications prescribed today, patient was educated about indications for the medication, how to take the medication and potential side effects of the medications. My ongoing relationship with Amy Sun requires continued responsibility and cognitive effort of being the focal point for all services related to chronic condition(s). Ulices Clark DO documented in this encounter [facility] 06-15-2024 Note Assessment/Plan: Degenerative joint disease Previously on tramadol with previous PCP. Would like to avoid opiates if possible. All medication is administered through G-tube due to to dysphagia 2/2 history of tongue cancer. - Start celecoxib daily, liquid formulation ordered for G-tube use - Follow-up in 3 months or sooner as needed Anxiety and depression Mood is much improved and stable on sertraline 50 mg daily. - Continue current dose - Continue to monitor mood History of aspiration pneumonia Recent aspiration pneumonia, hospitalized for 2 days last week. Completed Augmentin. He is high risk for aspiration pneumonia due to dysphagia 2/2 tongue cancer. - Monitor for S/S aspiration pneumonia Subjective: Amy Sun is a 73 y.o. male Chief Complaint Patient presents with Follow-up 3m f/u Anxiety and depression Patient presents for routine follow-up. He was recently admitted to the hospital for 2 days for aspiration pneumonia in his RLL. He was on Unasyn in the hospital, and discharged with Augmentin twice daily x 5 days, which he has completed. He is high risk for this due to dysphagia 2/2 his history of tongue cancer and radiation. Not sleeping well due to arthritis pain. He ran out of tramadol from previous PCP and has been taking aspirin. He occasionally uses antihistamine for sleeping. Mood is still doing well on sertraline. Appetite not good, but seeing african history professor next week. The following portions of the patient's history were reviewed and updated as appropriate: allergies, current medications, past family history, past medical history, past social history, past surgical history and problem list. Review of Systems Objective: PACU Vitals 06/15/24 1452 BP: 136/80 Pulse: (!) 56 Resp: 14 SpO2: 91% Physical Exam Constitutional: General: He is not in acute distress. Appearance: Normal appearance. He is not ill-appearing, toxic-appearing or diaphoretic. Cardiovascular: Rate and Rhythm: Normal rate and regular rhythm. Heart sounds: No murmur heard. No gallop. Pulmonary: Effort: Pulmonary effort is normal. No respiratory distress. Breath sounds: Normal breath sounds. No wheezing or rales. Skin: General: Skin is warm and dry. Coloration: Skin is not jaundiced or pale. Neurological: Mental Status: He is alert. Mental status is at baseline. Psychiatric: Mood and Affect: Mood normal. For any new medications prescribed today, patient was educated about indications for the medication, how to take the medication and potential side effects of the medications. My ongoing relationship with Amy Sun requires continued responsibility and cognitive effort of being the focal point for all services related to chronic condition(s). Ulices Clark DO AUTHENTICATED BY ULICES CLARK, ON 06/20/2024 18:17:40 [facility] 06-09-2024 Progress note Formatting of t his note might be different from the original. Patients IV removed. Education completed with at bedside. Patient leaving with via personal vehicle home. [facility] 06-09-2024 Miscellaneous Notes Patients IV removed. Education completed with at bedside. Patient leaving with via personal vehicle home. Dr. Tony at bedside ordering reglan, esgic and CBC with differential. Problem: Actual or potential alteration in health Goal: Absence of healthcare acquired conditions Outcome: Partially Met Goal: Knowledge of Interdisciplinary Plan of Care Outcome: Partially Met Goal: Knowledge of Enviroment Outcome: Partially Met Problem: Falls, Risk of Goal: Absence of falls Outcome: Partially Met Goal: Absence of physical injury Outcome: Partially Met Problem: Pressure Injury, Risk of Goal: Absence of pressure injury Outcome: Partially Met Problem: Pain Goal: Reduced pain sensation Outcome: Partially Met Goal: Control of acute pain to acceptable level Outcome: Partially Met Goal: Able to cope with pain Outcome: Partially Met Goal: Able to achieve maximum level of physical functioning Outcome: Partially Met Goal: Able to achieve maximum level of psychosocial functioning Outcome: Partially Met Problem: Falls, Risk of Goal: Absence of falls 06/08/20241821 by Nabil Greenwood RN Outcome: Partially Met 06/08/20241821 by Nabil Greenwood RN Outcome: Partially Met Goal: Absence of physical injury 06/08/20241821 by Nabil Greenwood RN Outcome: Partially Met 06/08/20241821 by Nabil Greenwood RN Outcome: Partially Met Problem: Pressure Injury, Risk of Goal: Absence of pressure injury 06/08/20241821 by Nabil Greenwood RN Outcome: Partially Met 06/08/20241821 by Nabil Greenwood RN Outcome: Partially Met Problem: Pain Goal: Reduced pain sensation 06/08/20241821 by Nabil Greenwood RN Outcome: Partially Met 06/08/20241821 by Nabil Greenwood RN Outcome: Partially Met Goal: Control of acute pain to acceptable level 06/08/20241821 by Nabil Greenwood RN Outcome: Partially Met 06/08/20241821 by Nabil Greenwood RN Outcome: Partially Met Goal: Able to cope with pain 06/08/20241821 by Nabil Greenwood RN Outcome: Partially Met 06/08/20241821 by Nabil Greenwood RN Outcome: Partially Met Goal: Able to achieve maximum level of physical functioning 06/08/20241821 by Nabil Greenwood RN Outcome: Partially Met 06/08/20241821 by Nabil Greenwood RN Outcome: Partially Met Goal: Able to achieve maximum level of psychosocial functioning 06/08/20241821 by Nabil Greenwood RN Outcome: Partially Met 06/08/20241821 by Nabil Greenwood RN Outcome: Partially Met Problem: Actual or potential alteration in health Goal: Absence of healthcare acquired conditions Outcome: Partially Met Goal: Knowledge of Interdisciplinary Plan of Care Outcome: Partially Met Goal: Knowledge of Enviroment Outcome: Partially Met Problem: Falls, Risk of Goal: Absence of falls Outcome: Partially Met Goal: Absence of physical injury Outcome: Partially Met Problem: Pressure Injury, Risk of Goal: Absence of pressure injury Outcome: Partially Met Problem: Pain Goal: Reduced pain sensation Outcome: Partially Met Goal: Control of acute pain to acceptable level Outcome: Partially Met Goal: Able to cope with pain Outcome: Partially Met Goal: Able to achieve maximum level of physical functioning Outcome: Partially Met Goal: Able to achieve maximum level of psychosocial functioning Outcome: Partially Met Problem: Actual or potential alteration in health Goal: Absence of healthcare acquired conditions Outcome: Partially Met Goal: Knowledge of Interdisciplinary Plan of Care Outcome: Partially Met Goal: Knowledge of Enviroment Outcome: Partially Met Problem: Falls, Risk of Goal: Absence of falls Outcome: Partially Met Goal: Absence of physical injury Outcome: Partially Met Problem: Pressure Injury, Risk of Goal: Absence of pressure injury Outcome: Partially Met Problem: Pain Goal: Reduced pain sensation Outcome: Partially Met Goal: Control of acute pain to acceptable level Outcome: Partially Met Goal: Able to cope with pain Outcome: Partially Met Goal: Able to achieve maximum level of physical functioning Outcome: Partially Met Goal: Able to achieve maximum level of psychosocial functioning Outcome: Partially Met documented in this encounter [facility] 06-09-2024 Note HMS DISCHARGE SUMMAR Y -- [facility] Amy Sun Admitted: 06/07/2024 Discharge Date: 06/09/24 PCP Handoff Recommended Outpatient Testing none Results Pending At Discharge none Clinical Summary Amy Sun is a 73 y.o. male patient of Ulices Clark DO with history of depression, BPH, erectile dysfunction, inguinal hernia, hypertension, hyperlipidemia, CKD, GERD, constipation, tongue cancer with PEG dependence and prediabetes, presented to [facility] with fever and sob. Acute on chronic hypoxemic respiratory failure, on 3 L at home Aspiration Pneumonia, RLL Sepsis, POA Presenting with fever and increased o2 requirment CXR with slight mild basilar atelectasis, haziness right lower lobe. Has increased productive sputum will obtain culture. Urine antigens are negative. Blood culture remain negative. Leukocytosis improved. Was on Unasyn changed to Augmentin at discharge. Back to 3 L which is his baseline. PE, Dec 2023 Continue Eliquis Tongue cancer status post PEG tube for dysphagia Status post chemo and radiation. Now suffers with dry mouth and sicca syndrome from his radiation therapy. Status post PEG revision earlier this month. Can continue tube feeds, spouse has his home feeds. Pulmonary nodule CT chest in March 2024-interval development of multiple semisolid nodules in the lung, largest in left lower lobe measuring 8.7 mm. Likely infectious or inflammatory. Plan for noncontrast CT in 3 to 6 months. Follows up with pulmonary outpatient. BPH Urinary retention Continue Flomax Continue with Serna, void trial before discharge Will have to follow-up with urology outpatient. Depression Anxiety Continue sertraline Discharge Medications Discharge Medications New Medications Details amoxicillin-clavulanate 875-125 mg per tablet Commonly known as: AUGMENTIN Take 1 (one) tablet by mouth 2 (two) times a day for 5 days . Quantity: 10 tablet Medications To Continue Details albuterol 90 mcg/actuation inhaler Inhale 2 (two) puffs every 6 (six) hours as needed for shortness of breath or wheezing . Quantity: 6.7 g * apixaban 5 mg Tab Commonly known as: Eliquis 1 (one) tablet (5 mg total) by Per G Tube route 2 (two) times a day . Quantity: 180 tablet * apixaban 5 mg Tab Commonly known as: ELIQUIS 1 (one) tablet (5 mg total) by Per G Tube route 2 (two) times a day . Quantity: 60 tablet budesonide 0.5 mg/2 mL nebulizer solution Commonly known as: PULMICORT Take 2 mL (0.5 mg total) by nebulization daily . famotidine 20 MG tablet Commonly known as: PEPCID Take 1 (one) tablet (20 mg total) by mouth 2 (two) times a day . fluticasone propionate 50 mcg/actuation nasal spray Commonly known as: FLONASE Instill 2 (two) sprays into each nostril daily . Quantity: 16 g formoterol fumarate 20 mcg/2 mL nebulizer solution Commonly known as: PERFOROMIST Take 2 mL (20 mcg total) by nebulization . Lactobacillus rhamnosus GG 10 billion cell capsule Commonly known as: CULTURELLE Take 1 (one) capsule by mouth daily . metoclopramide 5 MG tablet Commonly known as: REGLAN Take 1 (one) tablet (5 mg total) by mouth 2 (two) times a day Take 30 minutes before meal . sertraline 50 MG tablet Commonly known as: ZOLOFT Take 1 (one) tablet (50 mg total) by mouth daily . Quantity: 90 tablet SUMAtriptan 50 MG tablet Commonly known as: IMITREX Take 1 (one) tablet (50 mg total) by mouth every 2 (two) hours as needed for migraine Max of 200 mg in 24hrs, do not treat more than 3 times a week . Quantity: 10 tablet tamsulosin 0.4 mg capsule Commonly known as: FLOMAX Take 1 (one) capsule (0.4 mg total) by mouth daily . Quantity: 90 capsule traMADol 50 mg tablet Commonly known as: ULTRAM Take 1 (one) tablet (50 mg total) by mouth every 4 (four) hours as needed for pain (Days supply per fill: . * There are duplicate medications prescribed to the patient Physician(s) Follow Up: No follow-up provider specified. Condition at Discharge: Stable Disposition: Home I reviewed discharge recommendations with the patient in person. Patient instructions, including activity, were given to the patient/family at discharge. On day of discharge I saw Amy Sun and spent: > 30 minutes on discharge. Completed by: Diane Tony MD on 06/09/24, 11:47 AM AUTHENTICATED BY DIANE TONY, ON 06/09/2024 11:48:27 [facility] 06-09-2024 Hospital course Narrative Images from the original note were not included. [facility] DISCHARGE SUMMARY -- [facility] Amy Sun Admitted: 06/07/2024 Discharge Date: 06/09/24 PCP Handoff Recommended Outpatient Testing none Results Pending At Discharge none Clinical Summary Amy Sun is a 73 y.o. male patient of Ulices Clark DO with history of depression, BPH, erectile dysfunction, inguinal hernia, hypertension, hyperlipidemia, CKD, GERD, constipation, tongue cancer with PEG dependence and prediabetes, presented to [facility] with fever and sob. Acute on chronic hypoxemic respiratory failure, on 3 L at home Aspiration Pneumonia, RLL Sepsis, POA Presenting with fever and increased o2 requirment CXR with slight mild basilar atelectasis, haziness right lower lobe. Has increased productive sputum will obtain culture. Urine antigens are negative. Blood culture remain negative. Leukocytosis improved. Was on Unasyn changed to Augmentin at discharge. Back to 3 L which is his baseline. PE, Dec 2023 Continue Eliquis Tongue cancer status post PEG tube for dysphagia Status post chemo and radiation. Now suffers with dry mouth and sicca syndrome from his radiation therapy. Status post PEG revision earlier this month. Can continue tube feeds, spouse has his home feeds. Pulmonary nodule CT chest in March 2024-interval development of multiple semisolid nodules in the lung, largest in left lower lobe measuring 8.7 mm. Likely infectious or inflammatory. Plan for noncontrast CT in 3 to 6 months. Follows up with pulmonary outpatient. BPH Urinary retention Continue Flomax Continue with Serna, void trial before discharge Will have to follow-up with urology outpatient. Depression Anxiety Continue sertraline Discharge Medications Discharge Medications New Medications Details amoxicillin-clavulanate 875-125 mg per tablet Commonly known as: AUGMENTIN Take 1 (one) tablet by mouth 2 (two) times a day for 5 days . Quantity: 10 tablet Medications To Continue Details albuterol 90 mcg/actuation inhaler Inhale 2 (two) puffs every 6 (six) hours as needed for shortness of breath or wheezing . Quantity: 6.7 g * apixaban 5 mg Tab Commonly known as: Eliquis 1 (one) tablet (5 mg total) by Per G Tube route 2 (two) times a day . Quantity: 180 tablet * apixaban 5 mg Tab Commonly known as: ELIQUIS 1 (one) tablet (5 mg total) by Per G Tube route 2 (two) times a day . Quantity: 60 tablet budesonide 0.5 mg/2 mL nebulizer solution Commonly known as: PULMICORT Take 2 mL (0.5 mg total) by nebulization daily . famotidine 20 MG tablet Commonly known as: PEPCID Take 1 (one) tablet (20 mg total) by mouth 2 (two) times a day . fluticasone propionate 50 mcg/actuation nasal spray Commonly known as: FLONASE Instill 2 (two) sprays into each nostril daily . Quantity: 16 g formoterol fumarate 20 mcg/2 mL nebulizer solution Commonly known as: PERFOROMIST Take 2 mL (20 mcg total) by nebulization . Lactobacillus rhamnosus GG 10 billion cell capsule Commonly known as: CULTURELLE Take 1 (one) capsule by mouth daily . metoclopramide 5 MG tablet Commonly known as: REGLAN Take 1 (one) tablet (5 mg total) by mouth 2 (two) times a day Take 30 minutes before meal . sertraline 50 MG tablet Commonly known as: ZOLOFT Take 1 (one) tablet (50 mg total) by mouth daily . Quantity: 90 tablet SUMAtriptan 50 MG tablet Commonly known as: IMITREX Take 1 (one) tablet (50 mg total) by mouth every 2 (two) hours as needed for migraine Max of 200 mg in 24hrs, do not treat more than 3 times a week . Quantity: 10 tablet tamsulosin 0.4 mg capsule Commonly known as: FLOMAX Take 1 (one) capsule (0.4 mg total) by mouth daily . Quantity: 90 capsule traMADol 50 mg tablet Commonly known as: ULTRAM Take 1 (one) tablet (50 mg total) by mouth every 4 (four) hours as needed for pain (Days supply per fill: . * There are duplicate medications prescribed to the patient Physician(s) Follow Up: No follow-up provider specified. Condition at Discharge: Stable Disposition: Home I reviewed discharge recommendations with the patient in person. Patient instructions, including activity, were given to the patient/family at discharge. On day of discharge I saw Amy Sun and spent: > 30 minutes on discharge. Completed by: Diane Tony MD on 06/09/24, 11:47 AM documented in this encounter [facility] 06-09-2024 Consult note Formatting of th is note is different from the original. Physical Therapy PHYSICAL THERAPY EVALUATION AND DISCHARGE NOTE Skilled Therapy Needs After Discharge Are card cleaner Therapy Services Needed After Discharge: No PT DME Recommendation: None Rehab Potential: Good Outcomes Measures Prior Function - Basic Mobility Raw Score: 24 Points Prior Function - Basic Mobility % Impaired: 0% AM-PAC Basic Mobility Raw Score: 22 Points AM-PAC Basic Mobility % Impaired: 25.02% Physical Therapy Assessment History: The following factors influence the patient's participation in the PT plan of care: Personal Factors: None Environmental Factors: (NA) The following co-morbidities (from this admission or prior) influence the patient's participation in this plan of care: in note Number of History elements affecting this patient's PT plan of care: 3 or more Examination of Body Systems: The patient presents with: Musculoskeletal impairments: Functional Endurance. These impairments result in limitations of Gait. These impairments result in restrictions of Community mobility. Number of Body Systems elements affecting this patient's PT plan of care: 1 to 2. Clinical Presentation: The patient's clinical presentation for this PT evaluation is with stable and/or uncomplicated characteristics as evidenced by current PT documentation. Activity Tolerance Activity Tolerance: (mild SOB on 2L, SpO2 95% pre gait and 87% post gait recoveing quickly) Therapy Precautions General Rehab Precautions: None (low fall risk per nursing scale) Balance Assessment Sitting Balance - Static: Independent Standing Balance - Static: Independent Bed Mobility Supine to Sit: Independent Transfers Sit to Stand: Independent Gait/Locomotion Gait Assistance: Supervision Assistive Device: (none) Distance: 250 Feet Pattern: Within Functional Limits Gait Loss(es) of Balance: (none) Additional Assessment Details Home Living Lives With: Spouse Type of Home: House Home Layout: One level Steps to enter home: No Prior Level of Function Level of [place] - Transfers/Ambulation/Mobility: Independent with community ambulation (no AD) 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 Chronic kidney disease (CKD) stage G1/A2, glomerular filtration rate (GFR) equal to or greater than 90 mL/min/1.73 square meter and albuminuria creatinine ratio between 30-299 mg/g COPD (chronic obstructive pulmonary disease) (HCC) ED (erectile dysfunction) Edema leg bilateral GERD (gastroesophageal reflux disease) Hepatic steatosis Hyperlipidemia Hypertension Insomnia Migraine without aura and without status migrainosus, not intractable 09/25/2023 Prediabetes Past Surgical History: Procedure Laterality Date ABDOMINAL SURGERY CATARACT EXTRACTION BILATERAL W/ ANTERIOR VITRECTOMY CATARACT EXTRACTION BILATERAL W/ ANTERIOR VITRECTOMY Bilateral CT COLONOSCOPY 03/25/2022 CT COLONOSCOPY LAPAROSCOPIC INGUINAL HERNIA REPAIR [address] Holder for tongue cancer PEG TUBE PLACEMENT 04/04/2023 VASECTOMY For complete objective data, detailed plan of care and patient education refer to: PT Evaluation flowsheet, PT Evaluation and Treatment flowsheet, PT Treatment flowsheet, patient Plan of Care, Plan of Care progress note, and Patient Education. This note stands as the current Discharge Summary upon patient discharge from the hospital or completion of Physical Therapy Plan. T [facility] 06-09-2024 Consult note Formatting of th is note is different from the original. Physical Therapy PHYSICAL THERAPY EVALUATION AND DISCHARGE NOTE Skilled Therapy Needs After Discharge Are card cleaner Therapy Services Needed After Discharge: No PT DME Recommendation: None Rehab Potential: Good Outcomes Measures Prior Function - Basic Mobility Raw Score: 24 Points Prior Function - Basic Mobility % Impaired: 0% AM-PAC Basic Mobility Raw Score: 22 Points AM-PAC Basic Mobility % Impaired: 25.02% Physical Therapy Assessment History: The following factors influence the patient's participation in the PT plan of care: Personal Factors: None Environmental Factors: (NA) The following co-morbidities (from this admission or prior) influence the patient's participation in this plan of care: in note Number of History elements affecting this patient's PT plan of care: 3 or more Examination of Body Systems: The patient presents with: Musculoskeletal impairments: Functional Endurance. These impairments result in limitations of Gait. These impairments result in restrictions of Community mobility. Number of Body Systems elements affecting this patient's PT plan of care: 1 to 2. Clinical Presentation: The patient's clinical presentation for this PT evaluation is with stable and/or uncomplicated characteristics as evidenced by current PT documentation. Activity Tolerance Activity Tolerance: (mild SOB on 2L, SpO2 95% pre gait and 87% post gait recoveing quickly) Therapy Precautions General Rehab Precautions: None (low fall risk per nursing scale) Balance Assessment Sitting Balance - Static: Independent Standing Balance - Static: Independent Bed Mobility Supine to Sit: Independent Transfers Sit to Stand: Independent Gait/Locomotion Gait Assistance: Supervision Assistive Device: (none) Distance: 250 Feet Pattern: Within Functional Limits Gait Loss(es) of Balance: (none) Additional Assessment Details Home Living Lives With: Spouse Type of Home: House Home Layout: One level Steps to enter home: No Prior Level of Function Level of [place] - Transfers/Ambulation/Mobility: Independent with community ambulation (no AD) 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 Chronic kidney disease (CKD) stage G1/A2, glomerular filtration rate (GFR) equal to or greater than 90 mL/min/1.73 square meter and albuminuria creatinine ratio between 30-299 mg/g COPD (chronic obstructive pulmonary disease) (HCC) ED (erectile dysfunction) Edema leg bilateral GERD (gastroesophageal reflux disease) Hepatic steatosis Hyperlipidemia Hypertension Insomnia Migraine without aura and without status migrainosus, not intractable 09/25/2023 Prediabetes Past Surgical History: Procedure Laterality Date ABDOMINAL SURGERY CATARACT EXTRACTION BILATERAL W/ ANTERIOR VITRECTOMY CATARACT EXTRACTION BILATERAL W/ ANTERIOR VITRECTOMY Bilateral CT COLONOSCOPY 03/25/2022 CT COLONOSCOPY LAPAROSCOPIC INGUINAL HERNIA REPAIR [address] Holder for tongue cancer PEG TUBE PLACEMENT 04/04/2023 VASECTOMY For complete objective data, detailed plan of care and patient education refer to: PT Evaluation flowsheet, PT Evaluation and Treatment flowsheet, PT Treatment flowsheet, patient Plan of Care, Plan of Care progress note, and Patient Education. This note stands as the current Discharge Summary upon patient discharge from the hospital or completion of Physical Therapy Plan. Associated Order(s): IP CONSULT TO DIETITIAN Nutrition Care Initial Assessment Reason for visit: Physician Consult: home tube feedings Nutrition Diagnosis: Inadequate oral intake r/t inability to consume sufficient energy PO aeb NPO Nutrition Intervention Initiate Enteral Nutrition Nutrition Prescription: Diet:Continue NPO Tube Feedin bottles of compleat peptide 1.5 and 3 bottles of boost VHC infused via infinity pump @ 94mL/hr X 12 hours from 6p-6a Tube Feeding Route:Akash-matthew tube Nutrition Goals: Receive greater than 80% of rx'd EN volume Start Date:06/08/2024 Expected End Date:06/12/2024 Nutrition Education: No needs at this time Assessment: Pertinent clinical information: History of tongue cancer, s/p PEG in 2023. Past Medical History: Diagnosis Date Arthritis Asthma Benign prostatic hyperplasia Cancer (HCC) 2008 Chronic kidney disease (CKD) stage G1/A2, glomerular filtration rate (GFR) equal to or greater than 90 mL/min/1.73 square meter and albuminuria creatinine ratio between 30-299 mg/g COPD (chronic obstructive pulmonary disease) (HCC) ED (erectile dysfunction) Edema leg bilateral GERD (gastroesophageal reflux disease) Hepatic steatosis Hyperlipidemia Hypertension Insomnia Migraine without aura and without status migrainosus, not intractable 09/25/2023 Prediabetes Past Surgical History: Procedure Laterality Date ABDOMINAL SURGERY CATARACT EXTRACTION BILATERAL W/ ANTERIOR VITRECTOMY CATARACT EXTRACTION BILATERAL W/ ANTERIOR VITRECTOMY Bilateral CT COLONOSCOPY 03/25/2022 CT COLONOSCOPY LAPAROSCOPIC INGUINAL HERNIA REPAIR [address] Holder for tongue cancer PEG TUBE PLACEMENT 04/04/2023 VASECTOMY Height: 6' 1 Current weight: 83.7 kg (184 lb 8.4 oz) BMI Body mass index is 24.35 kg/m . Weight hx: Wt Readings from Last 10 Encounters: 06/07/24 83.7 kg (184 lb 8.4 oz) 06/07/24 81.6 kg (180 lb) 05/05/24 83.5 kg (184 lb) 05/03/24 83.5 kg (184 lb) 03/17/24 84.5 kg (186 lb 3.2 oz) 01/21/24 (P) 77.7 kg (171 lb 6.4 oz) 01/13/24 77.1 kg (170 lb) 12/22/23 73.5 kg (162 lb 0.6 oz) 12/19/23 74.8 kg (165 lb) 12/18/23 75.3 kg (166 lb) Significant Weight Change: No Current diet order: Diet: NPO Recent intake: Current intake likely meets estimated needs. Barriers to adequate p.o. intakes: Dysphagia Nutrition Related Allergies/Intolerances: No Nutrition Related Allergies noted Cultural or Rastafari Dietary Needs :No Cultural or Rastafari Dietary needs noted Patient/family comments: Discussed EN with /pt. 2 bottles of compleat peptide 1.5 and 3 bottles of boost VHC infused via infinity pump @ 94mL/hr X 12 hours from 6p-6a Tube Feeding Route:Akash-matthew tube Difficulty Chewing or Swallowing: Yes- Pt with feeding tube on admission Skin Integrity: Intact GI Function: WDL Fluid Status: WNL Physical Appearance: No signs and symptoms of malnutrition noted Labs: Recent Labs 06/08/24 0245 NA 143 K 4.4 BICARB 27 CL 107 GLUCOSE 141* BUN 27* CREATININE 0.85 ALBUMIN 3.5 Recent Labs 06/08/24 0245 GLUCOSE 141* No results found for: HGBA1C Home Medications Reviewed: Yes Scheduled Meds: ampicillin-sulbactam (UNAYSN) IVPB 3,000 mg Intravenous Q6H apixaban 5 mg Tube BID budesonide 0.5 mg Nebulization Daily famotidine 20 mg Tube BID ipratropium-albuteroL 3 mL Inhalation Q6H DO sertraline 50 mg Tube Daily sodium chloride (PF) 5 mL Intravenous Q8H DO Continuous Infusions: Nutrient Depleting Medications: No chronic use of nutrient depleting medications noted. Medications whose absorption may be altered by tube feeding: None Identified Estimated Energy Needs Total Energy Estimated Needs: [id number] Method for Estimating Needs: 30-35 kcal/kg Total Protein Estimated Needs: 100 Method for Estimating Needs: 1.2 gm/kg Margarita Cohen RD documented in this encounter [facility] 06-09-2024 Progress note Formatting of t his note might be different from the original. Dr. Toyn at bedside ordering reglan, esgic and CBC with differential. [facility] 06-09-2024 Plan of care note Problem: Actual or potential alteration in health Goal: Absence of healthcare acquired conditions Outcome: Partially Met Goal: Knowledge of Interdisciplinary Plan of Care Outcome: Partially Met Goal: Knowledge of Enviroment Outcome: Partially Met Problem: Falls, Risk of Goal: Absence of falls Outcome: Partially Met Goal: Absence of physical injury Outcome: Partially Met Problem: Pressure Injury, Risk of Goal: Absence of pressure injury Outcome: Partially Met Problem: Pain Goal: Reduced pain sensation Outcome: Partially Met Goal: Control of acute pain to acceptable level Outcome: Partially Met Goal: Able to cope with pain Outcome: Partially Met Goal: Able to achieve maximum level of physical functioning Outcome: Partially Met Goal: Able to achieve maximum level of psychosocial functioning Outcome: Partially Met [facility] 06-08-2024 Plan of care note Problem: Falls, Risk of Goal: Absence of falls 06/08/20241821 by Nabil Greenwood RN Outcome: Partially Met 06/08/20241821 by Nabil Greenwood RN Outcome: Partially Met Goal: Absence of physical injury 06/08/20241821 by Nabil Greenwood, RN Outcome: Partially Met 06/08/20241821 by Nabil Greenwood RN Outcome: Partially Met Problem: Pressure Injury, Risk of Goal: Absence of pressure injury 06/08/20241821 by Nabil Greenwood RN Outcome: Partially Met 06/08/20241821 by Nabil Greenwood RN Outcome: Partially Met Problem: Pain Goal: Reduced pain sensation 06/08/20241821 by Nabil Greenwood RN Outcome: Partially Met 06/08/20241821 by Nabil Greenwood RN Outcome: Partially Met Goal: Control of acute pain to acceptable level 06/08/20241821 by Nabil Greenwood RN Outcome: Partially Met 06/08/20241821 by Nabil Greenwood RN Outcome: Partially Met Goal: Able to cope with pain 06/08/20241821 by Nabil Greenwood RN Outcome: Partially Met 06/08/20241821 by Nabil Greenwood RN Outcome: Partially Met Goal: Able to achieve maximum level of physical functioning 06/08/20241821 by Nabil Greenwood RN Outcome: Partially Met 06/08/20241821 by Nabil Greenwood RN Outcome: Partially Met Goal: Able to achieve maximum level of psychosocial functioning 06/08/20241821 by Nabil Greenwodo RN Outcome: Partially Met 06/08/20241821 by Nabil Greenwood RN Outcome: Partially Met [facility] 06-08-2024 Plan of care note Problem: Actual or potential alteration in health Goal: Absence of healthcare acquired conditions Outcome: Partially Met Goal: Knowledge of Interdisciplinary Plan of Care Outcome: Partially Met Goal: Knowledge of Enviroment Outcome: Partially Met Problem: Falls, Risk of Goal: Absence of falls Outcome: Partially Met Goal: Absence of physical injury Outcome: Partially Met Problem: Pressure Injury, Risk of Goal: Absence of pressure injury Outcome: Partially Met Problem: Pain Goal: Reduced pain sensation Outcome: Partially Met Goal: Control of acute pain to acceptable level Outcome: Partially Met Goal: Able to cope with pain Outcome: Partially Met Goal: Able to achieve maximum level of physical functioning Outcome: Partially Met Goal: Able to achieve maximum level of psychosocial functioning Outcome: Partially Met [facility] 06-08-2024 Note [facility] PROGRESS NOTE Assessment and Plan Amy Sun is a 73 [facility] with history of depression, BPH, erectile dysfunction, inguinal hernia, hypertension, hyperlipidemia, CKD, GERD, constipation, tongue cancer with PEG dependence and prediabetes, presented to [facility] with fever and sob. Acute on chronic hypoxemic respiratory failure, on 3 L at home Aspiration Pneumonia, RLL Sepsis, POA Presenting with fever and increased o2 requirment CXR with slight mild basilar atelectasis, haziness right lower lobe. Has increased productive sputum will obtain culture. Urine antigens are negative. Blood culture 06/07 pending. Significant leukocytosis, but patient denies any abdominal pain, PEG tube site appears stable. Continue Unasyn. Will broaden antibiotics if he spikes again. Hold off on further imaging, repeat CBC tomorrow. DuoNeb every 6 as needed PE, Dec 2023 Continue Eliquis Tongue cancer status post PEG tube for dysphagia Status post chemo and radiation. Now suffers with dry mouth and sicca syndrome from his radiation therapy. Status post PEG revision earlier this month. Can continue tube feeds, spouse has his feeds from home. Dietitian consulted Pulmonary nodule CT chest in March 2024-interval development of multiple semisolid nodules in the lung, largest in left lower lobe measuring 8.7 mm. Likely infectious or inflammatory. Plan for noncontrast CT in 3 to 6 months. Follows up with pulmonary outpatient. BPH Urinary retention Continue Flomax Continue with Serna, void trial before discharge Will have to follow-up with urology outpatient. Depression Anxiety Continue sertraline Resolved acute medical issues Discharge Planning Medically Stable for Discharge Date: TBD Patient requires continued hospitalization due to: Sepsis, resp failure Discharge Location: home Quality Measures DVT Prophylaxis: eliquis Serna Catheter: absent Code Status Full Primary Contact Information Subjective Overall patient is feeling better, he is very hard of hearing. Spouse at bedside communicates for him. She says that he is significantly better, he had 1 episode of vomiting at home and fever up to 105.5. Since then he has been stable here. Objective BP (!) 107/47 Pulse 67 Temp 99 degrees F (37.2 degrees C) (Axillary) Resp (!) 22 Ht 6' 1 Wt 83.7 kg (184 lb 8.4 oz) SpO2 92% BMI 24.35 kg/m Physical Examination General Appearance: alert; acute on chronically ill appearing; in mild acute distress HEENT: Head- normocephalic; Eyes- EOMI, sclera anicteric; Throat- mucous membranes moist Cardiovascular: regular rate and rhythm; normal S1, S2; no murmurs, rubs, clicks or gallops; peripheral edema absent Respiratory: lungs clear to auscultation; without wheezes, rales or rhonchi; on nasal cannula Abdomen: soft, non-tender, non-distended Neurological: oriented x 2; normal speech; no focal findings or movement disorder noted Musculoskeletal: no significant deformity or tenderness to palpation Skin: normal coloration Psych: normal mood and affect AUTHENTICATED BY DIANE TONY ON 06/08/2024 14:30:00 [facility] 06-08-2024 History of Present illness Narrative [facility] PROGRESS NOTE Assessment and Plan Amy Sun is a 73 y.o. male patient of Ulices Clark DO with history of depression, BPH, erectile dysfunction, inguinal hernia, hypertension, hyperlipidemia, CKD, GERD, constipation, tongue cancer with PEG dependence and prediabetes, presented to [facility] with fever and sob. Acute on chronic hypoxemic respiratory failure, on 3 L at home Aspiration Pneumonia, RLL Sepsis, POA Presenting with fever and increased o2 requirment CXR with slight mild basilar atelectasis, haziness right lower lobe. Has increased productive sputum will obtain culture. Urine antigens are negative. Blood culture 06/07 pending. Significant leukocytosis, but patient denies any abdominal pain, PEG tube site appears stable. Continue Unasyn. Will broaden antibiotics if he spikes again. Hold off on further imaging, repeat CBC tomorrow. DuoNeb every 6 as needed PE, Dec 2023 Continue Eliquis Tongue cancer status post PEG tube for dysphagia Status post chemo and radiation. Now suffers with dry mouth and sicca syndrome from his radiation therapy. Status post PEG revision earlier this month. Can continue tube feeds, spouse has his feeds from home. Dietitian consulted Pulmonary nodule CT chest in March 2024-interval development of multiple semisolid nodules in the lung, largest in left lower lobe measuring 8.7 mm. Likely infectious or inflammatory. Plan for noncontrast CT in 3 to 6 months. Follows up with pulmonary outpatient. BPH Urinary retention Continue Flomax Continue with Serna, void trial before discharge Will have to follow-up with urology outpatient. Depression Anxiety Continue sertraline Resolved acute medical issues Discharge Planning Medically Stable for Discharge Date: TBD Patient requires continued hospitalization due to: Sepsis, resp failure Discharge Location: home Quality Measures DVT Prophylaxis: eliquis Serna Catheter: absent Code Status Full Primary Contact Information Subjective Overall patient is feeling better, he is very hard of hearing. Spouse at bedside communicates for him. She says that he is significantly better, he had 1 episode of vomiting at home and fever up to 105.5. Since then he has been stable here. Objective BP (!) 107/47 Pulse 67 Temp 99 F (37.2 C) (Axillary) Resp (!) 22 Ht 6' 1 Wt 83.7 kg (184 lb 8.4 oz) SpO2 92% BMI 24.35 kg/m Physical Examination General Appearance: alert; acute on chronically ill appearing; in mild acute distress HEENT: Head- normocephalic; Eyes- EOMI, sclera anicteric; Throat- mucous membranes moist Cardiovascular: regular rate and rhythm; normal S1, S2; no murmurs, rubs, clicks or gallops; peripheral edema absent Respiratory: lungs clear to auscultation; without wheezes, rales or rhonchi; on nasal cannula Abdomen: soft, non-tender, non-distended Neurological: oriented x 2; normal speech; no focal findings or movement disorder noted Musculoskeletal: no significant deformity or tenderness to palpation Skin: normal coloration Psych: normal mood and affect documented in this encounter [facility] 06-08-2024 Consult note Associated Order (s): IP CONSULT TO DIETITIAN Nutrition Care Initial Assessment Reason for visit: Physician Consult: home tube feedings Nutrition Diagnosis: Inadequate oral intake r/t inability to consume sufficient energy PO aeb NPO Nutrition Intervention Initiate Enteral Nutrition Nutrition Prescription: Diet:Continue NPO Tube Feedin bottles of compleat peptide 1.5 and 3 bottles of boost VHC infused via infinity pump @ 94mL/hr X 12 hours from 6p-6a Tube Feeding Route:Akash-matthew tube Nutrition Goals: Receive greater than 80% of rx'd EN volume Start Date:06/08/2024 Expected End Date:06/12/2024 Nutrition Education: No needs at this time Assessment: Pertinent clinical information: History of tongue cancer, s/p PEG in 2023. 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 Chronic kidney disease (CKD) stage G1/A2, glomerular filtration rate (GFR) equal to or greater than 90 mL/min/1.73 square meter and albuminuria creatinine ratio between 30-299 mg/g COPD (chronic obstructive pulmonary disease) (HCC) ED (erectile dysfunction) Edema leg bilateral GERD (gastroesophageal reflux disease) Hepatic steatosis Hyperlipidemia Hypertension Insomnia Migraine without aura and without status migrainosus, not intractable 09/25/2023 Prediabetes Past Surgical History: Procedure Laterality Date ABDOMINAL SURGERY CATARACT EXTRACTION BILATERAL W/ ANTERIOR VITRECTOMY CATARACT EXTRACTION BILATERAL W/ ANTERIOR VITRECTOMY Bilateral CT COLONOSCOPY 03/25/2022 CT COLONOSCOPY LAPAROSCOPIC INGUINAL HERNIA REPAIR [address] Holder for tongue cancer PEG TUBE PLACEMENT 04/04/2023 VASECTOMY Height: 6' 1 Current weight: 83.7 kg (184 lb 8.4 oz) BMI Body mass index is 24.35 kg/m . Weight hx: Wt Readings from Last 10 Encounters: 06/07/24 83.7 kg (184 lb 8.4 oz) 06/07/24 81.6 kg (180 lb) 05/05/24 83.5 kg (184 lb) 05/03/24 83.5 kg (184 lb) 03/17/24 84.5 kg (186 lb 3.2 oz) 01/21/24 (P) 77.7 kg (171 lb 6.4 oz) 01/13/24 77.1 kg (170 lb) 12/22/23 73.5 kg (162 lb 0.6 oz) 12/19/23 74.8 kg (165 lb) 12/18/23 75.3 kg (166 lb) Significant Weight Change: No Current diet order: Diet: NPO Recent intake: Current intake likely meets estimated needs. Barriers to adequate p.o. intakes: Dysphagia Nutrition Related Allergies/Intolerances: No Nutrition Related Allergies noted Cultural or Rastafari Dietary Needs :No Cultural or Rastafari Dietary needs noted Patient/family comments: Discussed EN with /pt. 2 bottles of compleat peptide 1.5 and 3 bottles of boost VHC infused via infinity pump @ 94mL/hr X 12 hours from 6p-6a Tube Feeding Route:Akash-matthew tube Difficulty Chewing or Swallowing: Yes- Pt with feeding tube on admission Skin Integrity: Intact GI Function: WDL Fluid Status: WNL Physical Appearance: No signs and symptoms of malnutrition noted Labs: Recent Labs 06/08/24 0245 NA 143 K 4.4 BICARB 27 CL 107 GLUCOSE 141* BUN 27* CREATININE 0.85 ALBUMIN 3.5 Recent Labs 06/08/24 0245 GLUCOSE 141* No results found for: HGBA1C Home Medications Reviewed: Yes Scheduled Meds: ampicillin-sulbactam (UNAYSN) IVPB 3,000 mg Intravenous Q6H apixaban 5 mg Tube BID budesonide 0.5 mg Nebulization Daily famotidine 20 mg Tube BID ipratropium-albuteroL 3 mL Inhalation Q6H DO sertraline 50 mg Tube Daily sodium chloride (PF) 5 mL Intravenous Q8H DO Continuous Infusions: Nutrient Depleting Medications: No chronic use of nutrient depleting medications noted. Medications whose absorption may be altered by tube feeding: None Identified Estimated Energy Needs Total Energy Estimated Needs: [id number] Method for Estimating Needs: 30-35 kcal/kg Total Protein Estimated Needs: 100 Method for Estimating Needs: 1.2 gm/kg Margarita Cohen RD [facility] 06-08-2024 Plan of care note Problem: Actual or potential alteration in health Goal: Absence of healthcare acquired conditions Outcome: Partially Met Goal: Knowledge of Interdisciplinary Plan of Care Outcome: Partially Met Goal: Knowledge of Enviroment Outcome: Partially Met Problem: Falls, Risk of Goal: Absence of falls Outcome: Partially Met Goal: Absence of physical injury Outcome: Partially Met Problem: Pressure Injury, Risk of Goal: Absence of pressure injury Outcome: Partially Met Problem: Pain Goal: Reduced pain sensation Outcome: Partially Met Goal: Control of acute pain to acceptable level Outcome: Partially Met Goal: Able to cope with pain Outcome: Partially Met Goal: Able to achieve maximum level of physical functioning Outcome: Partially Met Goal: Able to achieve maximum level of psychosocial functioning Outcome: Partially Met [facility] 06-07-2024 History and physical note [facility] HISTORY AND PHYSICAL -- [facility] Patient Name: Amy Sun : 1950 MR #: [id number] Admit Date: 06/07/2024 Physicians: Ulices Clark DO (Family); Caleb Holder MD (Referring) Amy Sun is a 73 y.o. male patient of Ulices Clark DO with history of depression, BPH, erectile dysfunction, inguinal hernia, hypertension, hyperlipidemia, CKD, GERD, constipation, tongue cancer with PEG dependence and prediabetes, presented to [facility] with fever and sob. Acute on chronic hypoxemic respiratory failure Possible aspiration pna Right lower lobe bronchiectasis Presenting with fever and increased o2 requirment Possible pna Admit to intermediate Start unasyn Sputum cx DuoNeb every 6 as needed pulmonary embolism few months ago Continue Eliquis Tongue cancer status post PEG tube for dysphagia Continue with PEG tube for feeding Dietitian consulted BPH Urinary retention Continue Flomax Continue with Serna, void trial before discharge Depression Anxiety Continue sertraline Residence prior to admission: house or apartment Was patient transferred from [facility] hospital or ED no Residence prior to admission: house or apartment Was patient transferred from [facility] hospital or ED no Quality Measures DVT Prophylaxis: eliquis Serna Catheter: absent Medication Reconciliation: Verified Admitted with these risk variables:Acute Respiratory Failure and Pneumonia . Please see assessment and plan for further details. Estimated Date of Discharge greater than 2 midnights Code Status Full Code; code status verified on 06/07/2024 with next of kin Chief Complaint fever and sob History of Present Illness Amy Sun is a 73 y.o. male patient of Ulices Clark DO with history of depression, BPH, erectile dysfunction, inguinal hernia, hypertension, hyperlipidemia, CKD, GERD, constipation, tongue cancer with PEG dependence and prediabetes, presented to [facility] with fever and sob. Patient is from home brought to the freestanding emergency room by his as he had fever of 105 earlier today she said he was very lethargic a little bit short of breath and all his symptoms started today yesterday he was doing fine over the weekend playing with his grandchildren and was no sign of any illness. Again fever today did not eat much very lethargic and weak and as he presented emergency room he was requiring more oxygen his baseline is 2 to 3 L he was on a nonrebreather mask at 1 point. He does have history of pulmonary embolism few months ago he is on Eliquis Past Medical History 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 Chronic kidney disease (CKD) stage G1/A2, glomerular filtration rate (GFR) equal to or greater than 90 mL/min/1.73 square meter and albuminuria creatinine ratio between 30-299 mg/g COPD (chronic obstructive pulmonary disease) (HCC) ED (erectile dysfunction) Edema leg bilateral GERD (gastroesophageal reflux disease) Hepatic steatosis Hyperlipidemia Hypertension Insomnia Migraine without aura and without status migrainosus, not intractable 09/25/2023 Prediabetes Past Surgical History Past Surgical History: Procedure Laterality Date ABDOMINAL SURGERY CATARACT EXTRACTION BILATERAL W/ ANTERIOR VITRECTOMY CATARACT EXTRACTION BILATERAL W/ ANTERIOR VITRECTOMY Bilateral CT COLONOSCOPY 03/25/2022 CT COLONOSCOPY LAPAROSCOPIC INGUINAL HERNIA REPAIR [address] Holder for tongue cancer PEG TUBE PLACEMENT 04/04/2023 VASECTOMY Family History Family History Problem Relation Age of Onset Stroke Father Heart disease Father Coronary artery disease Father Diabetes Sister Coronary artery disease Brother Social History Tobacco Use History[1] Social History Substance and Sexual Activity Alcohol Use Not Currently Social History Substance and Sexual Activity Drug Use Not Currently Allergy Information I have reviewed the patient's allergies. Patient has no known allergies. Home Medications Home medications were reviewed. Review Of Systems All relevant systems have been reviewed and are negative except as noted in HPI or below Physical Examination SpO2 94% General Appearance: alert; acute on chronically ill appearing; in mild acute distress HEENT: Head- normocephalic; Eyes- EOMI, sclera anicteric; Throat- mucous membranes moist Cardiovascular: regular rate and rhythm; normal S1, S2; no murmurs, rubs, clicks or gallops; peripheral edema absent Respiratory: lungs clear to auscultation; without wheezes, rales or rhonchi; on nasal cannula Abdomen: soft, non-tender, non-distended Neurological: oriented x 3; normal speech; no focal findings or movement disorder noted Musculoskeletal: no significant deformity or tenderness to palpation Skin: normal coloration Psych: normal mood and affect [1] Social History Tobacco Use Smoking Status Former Current packs/day: 0.00 Types: Cigarettes Start date: 1960 Quit date: 2008 Years since quittin.3 Passive exposure: Past Smokeless Tobacco Never [facility] 06-07-2024 Note [facility] HISTORY AND PHYS ICAL -- [facility] Patient Name: Amy Sun : 1950 MR #: [id number] Admit Date: 06/07/2024 Physicians: Ulices Clark DO (Family); Caleb Holder MD (Referring) Amy Sun is a 73 y.o. male patient of Ulices Clark DO with history of depression, BPH, erectile dysfunction, inguinal hernia, hypertension, hyperlipidemia, CKD, GERD, constipation, tongue cancer with PEG dependence and prediabetes, presented to [facility] with fever and sob. Acute on chronic hypoxemic respiratory failure Possible aspiration pna Right lower lobe bronchiectasis Presenting with fever and increased o2 requirment Possible pna Admit to intermediate Start unasyn Sputum cx DuoNeb every 6 as needed pulmonary embolism few months ago Continue Eliquis Tongue cancer status post PEG tube for dysphagia Continue with PEG tube for feeding Dietitian consulted BPH Urinary retention Continue Flomax Continue with Serna, void trial before discharge Depression Anxiety Continue sertraline Residence prior to admission: house or apartment [facility] Residence prior to admission: house or apartment Was patient transferred from [facility] hospital or ED no Quality Measures DVT Prophylaxis: eliquis Serna Catheter: absent Medication Reconciliation: Verified Admitted with these risk variables:Acute Respiratory Failure and Pneumonia . Please see assessment and plan for further details. Estimated Date of Discharge greater than 2 midnights Code Status Full Code; code status verified on 06/07/2024 with next of kin Chief Complaint fever and sob History of Present Illness Amy Sun is a 73 y.o. male patient of Ulices Clark DO with history of depression, BPH, erectile dysfunction, inguinal hernia, hypertension, hyperlipidemia, CKD, GERD, constipation, tongue cancer with PEG dependence and prediabetes, presented to [facility] with fever and sob. Patient is from home brought to the freestanding emergency room by his as he had fever of 105 earlier today she said he was very lethargic a little bit short of breath and all his symptoms started today yesterday he was doing fine over the weekend playing with his grandchildren and was no sign of any illness. Again fever today did not eat much very lethargic and weak and as he presented emergency room he was requiring more oxygen his baseline is 2 to 3 L he was on a nonrebreather mask at 1 point. He does have history of pulmonary embolism few months ago he is on Eliquis Past Medical History 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 Chronic kidney disease (CKD) stage G1/A2, glomerular filtration rate (GFR) equal to or greater than 90 mL/min/1.73 square meter and albuminuria creatinine ratio between 30-299 mg/g COPD (chronic obstructive pulmonary disease) (HCC) ED (erectile dysfunction) Edema leg bilateral GERD (gastroesophageal reflux disease) Hepatic steatosis Hyperlipidemia Hypertension Insomnia Migraine without aura and without status migrainosus, not intractable 09/25/2023 Prediabetes Past Surgical History Past Surgical History: Procedure Laterality Date ABDOMINAL SURGERY CATARACT EXTRACTION BILATERAL W/ ANTERIOR VITRECTOMY CATARACT EXTRACTION BILATERAL W/ ANTERIOR VITRECTOMY Bilateral CT COLONOSCOPY 03/25/2022 CT COLONOSCOPY LAPAROSCOPIC INGUINAL HERNIA REPAIR [address] Holder for tongue cancer PEG TUBE PLACEMENT 04/04/2023 VASECTOMY Family History Family History Problem Relation Age of Onset Stroke Father Heart disease Father Coronary artery disease Father Diabetes Sister Coronary artery disease Brother Social History Tobacco Use History[1] Social History Substance and Sexual Activity Alcohol Use Not Currently Social History Substance and Sexual Activity Drug Use Not Currently Allergy Information I have reviewed the patient's allergies. Patient has no known allergies. Home Medications Home medications were reviewed. Review Of Systems All relevant systems have been reviewed and are negative except as noted in HPI or below Physical Examination SpO2 94% General Appearance: alert; acute on chronically ill appearing; in mild acute distress HEENT: Head- normocephalic; Eyes- EOMI, sclera anicteric; Throat- mucous membranes moist Cardiovascular: regular rate and rhythm; normal S1, S2; no murmurs, rubs, clicks or gallops; peripheral edema absent Respiratory: lungs clear to auscultation; without wheezes, rales or rhonchi; on nasal cannula Abdomen: soft, non-tender, non-distended Neurological: oriented x 3; normal speech; no focal findings or movement disorder noted Musculoskeletal: no significant deformity or tenderness to palpation Skin: normal (more content not included)... [facility] 06-07-2024 History and physical note [facility] HISTORY AND PHYSICAL -- [facility] Patient Name: Amy Sun : 1950 MR #: [id number] Admit Date: 06/07/2024 Physicians: Ulices Clark DO (Family); Caleb Holder MD (Referring) Amy Sun is a 73 y.o. male patient of Ulices Clark DO with history of depression, BPH, erectile dysfunction, inguinal hernia, hypertension, hyperlipidemia, CKD, GERD, constipation, tongue cancer with PEG dependence and prediabetes, presented to [facility] with fever and sob. Acute on chronic hypoxemic respiratory failure Possible aspiration pna Right lower lobe bronchiectasis Presenting with fever and increased o2 requirment Possible pna Admit to intermediate Start unasyn Sputum cx DuoNeb every 6 as needed pulmonary embolism few months ago Continue Eliquis Tongue cancer status post PEG tube for dysphagia Continue with PEG tube for feeding Dietitian consulted BPH Urinary retention Continue Flomax Continue with Serna, void trial before discharge Depression Anxiety Continue sertraline Residence prior to admission: house or apartment [facility] Residence prior to admission: house or apartment Was patient transferred from [facility] hospital or ED no Quality Measures DVT Prophylaxis: eliquis Serna Catheter: absent Medication Reconciliation: Verified Admitted with these risk variables:Acute Respiratory Failure and Pneumonia . Please see assessment and plan for further details. Estimated Date of Discharge greater than 2 midnights Code Status Full Code; code status verified on 06/07/2024 with next of kin Chief Complaint fever and sob History of Present Illness Amy Sun is a 73 y.o. male patient of Ulices Clark DO with history of depression, BPH, erectile dysfunction, inguinal hernia, hypertension, hyperlipidemia, CKD, GERD, constipation, tongue cancer with PEG dependence and prediabetes, presented to [facility] with fever and sob. Patient is from home brought to the freestanding emergency room by his as he had fever of 105 earlier today she said he was very lethargic a little bit short of breath and all his symptoms started today yesterday he was doing fine over the weekend playing with his grandchildren and was no sign of any illness. Again fever today did not eat much very lethargic and weak and as he presented emergency room he was requiring more oxygen his baseline is 2 to 3 L he was on a nonrebreather mask at 1 point. He does have history of pulmonary embolism few months ago he is on Eliquis Past Medical History 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 Chronic kidney disease (CKD) stage G1/A2, glomerular filtration rate (GFR) equal to or greater than 90 mL/min/1.73 square meter and albuminuria creatinine ratio between 30-299 mg/g COPD (chronic obstructive pulmonary disease) (HCC) ED (erectile dysfunction) Edema leg bilateral GERD (gastroesophageal reflux disease) Hepatic steatosis Hyperlipidemia Hypertension Insomnia Migraine without aura and without status migrainosus, not intractable 09/25/2023 Prediabetes Past Surgical History Past Surgical History: Procedure Laterality Date ABDOMINAL SURGERY CATARACT EXTRACTION BILATERAL W/ ANTERIOR VITRECTOMY CATARACT EXTRACTION BILATERAL W/ ANTERIOR VITRECTOMY Bilateral CT COLONOSCOPY 03/25/2022 CT COLONOSCOPY LAPAROSCOPIC INGUINAL HERNIA REPAIR [address] Holder for tongue cancer PEG TUBE PLACEMENT 04/04/2023 VASECTOMY Family History Family History Problem Relation Age of Onset Stroke Father Heart disease Father Coronary artery disease Father Diabetes Sister Coronary artery disease Brother Social History Tobacco Use History[1] Social History Substance and Sexual Activity Alcohol Use Not Currently Social History Substance and Sexual Activity Drug Use Not Currently Allergy Information I have reviewed the patient's allergies. Patient has no known allergies. Home Medications Home medications were reviewed. Review Of Systems All relevant systems have been reviewed and are negative except as noted in HPI or below Physical Examination SpO2 94% General Appearance: alert; acute on chronically ill appearing; in mild acute distress HEENT: Head- normocephalic; Eyes- EOMI, sclera anicteric; Throat- mucous membranes moist Cardiovascular: regular rate and rhythm; normal S1, S2; no murmurs, rubs, clicks or gallops; peripheral edema absent Respiratory: lungs clear to auscultation; without wheezes, rales or rhonchi; on nasal cannula Abdomen: soft, non-tender, non-distended Neurological: oriented x 3; normal speech; no focal findings or movement disorder noted Musculoskeletal: no significant deformity or tenderness to palpation Skin: normal coloration Psych: normal mood and affect [1] Social History Tobacco Use Smoking Status Former Current packs/day: 0.00 Types: Cigarettes Start date: 1960 Quit date: 2008 Years since quittin.3 Passive exposure: Past Smokeless Tobacco Never documented in this encounter [facility] 06-01-2024 History of Present illness Narrative Subjective Patient ID: Amy Sun is a 73 y.o. male who presents for Follow-up (Pt presents today to follow up with Akash Matthew button. Pt has concerns about clogging. ). HPI patient is seen today in routine follow-up. Underwent PEG tube revision with Lake button placement last week. He is doing well is satisfied with the results and feels that it is much more hygienic. She has had some issues with the feeding port and tube that accessed the feeding port clocking. She is trying to dislodge the clock with warm water. I advised her the [employer] would work for that she is ordered replacement parts to keep on hand. Otherwise Kishor is doing well. He continues complain of dry mouth. Did have remote pharyngeal cancer for which he underwent radiation and chemotherapy. Now suffers with dry mouth, sicca syndrome from his radiation therapy and pharyngeal dysfunction requiring alternative feeding. Review of Systems Constitutional: Negative. HENT: Negative. Eyes: Negative. Respiratory: Negative. Cardiovascular: Negative. Gastrointestinal: Negative. Endocrine: Negative. Genitourinary: Negative. Musculoskeletal: Negative. Neurological: Negative. Hematological: Negative. Psychiatric/Behavioral: Negative. Objective Physical Exam Vitals and nursing note reviewed. Constitutional: Appearance: Normal appearance. HENT: Head: Normocephalic. Mouth/Throat: Mouth: Mucous membranes are moist. Pharynx: Oropharynx is clear. Eyes: Pupils: Pupils are equal, round, and reactive to light. Cardiovascular: Rate and Rhythm: Normal rate and regular rhythm. Pulmonary: Effort: Pulmonary effort is normal. Breath sounds: Normal breath sounds. Abdominal: General: Abdomen is flat. Bowel sounds are normal. Palpations: Abdomen is soft. Comments: PEG tube, Lake button is well-positioned and there is no evidence of any inflammation or signs of infection around the site itself. Musculoskeletal: General: Normal range of motion. Cervical back: Normal range of motion and neck supple. Skin: General: Skin is warm and dry. Neurological: General: No focal deficit present. Mental Status: He is alert and oriented to person, place, and time. Psychiatric: Mood and Affect: Mood normal. Behavior: Behavior normal. Assessment/Plan Will check iron levels vitamin D level and follow-up in office in 3 months Vasu Jaimes DO 06/01/24 4:14 PM documented in this encounter [facility] Work Phone: 05-26-2024 History and physical note History Of Present Illness Amy Sun is a 73 y.o. 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 He is at a point where his PEG tube is no longer functioning and requires revision. He presents today for PEG tube revision with Lake button placement. Because of his high risk airway Case is being done with MAC.. Past Medical History Past Medical History: Diagnosis Date COPD (chronic obstructive pulmonary disease) (Multi) Throat cancer (Multi) Surgical History Past Surgical History: Procedure Laterality Date GASTROSTOMY TUBE PLACEMENT OTHER SURGICAL HISTORY 06/06/2021 Vasectomy OTHER SURGICAL HISTORY 06/06/2021 Inguinal hernia repair OTHER SURGICAL HISTORY many throat surgeries Social History He reports that he has quit smoking. His smoking use included cigarettes. He does not have any smokeless tobacco history on file. He reports that he does not currently use alcohol. He reports that he does not use drugs. Family History No family history on file. Allergies No Known Allergies Review of Systems Pre-sedation Evaluation: ASA Classification - ASA 3 - Patient with moderate systemic disease with functional limitations Mallampati Score - II (hard and soft palate, upper portion of tonsils and uvula visible) Physical Exam Vitals and nursing note reviewed. Constitutional: Appearance: Normal appearance. HENT: Head: Normocephalic. Mouth/Throat: Mouth: Mucous membranes are moist. Pharynx: Oropharynx is clear. Eyes: Pupils: Pupils are equal, round, and reactive to light. Cardiovascular: Rate and Rhythm: Normal rate and regular rhythm. Heart sounds: Normal heart sounds. Pulmonary: Effort: Pulmonary effort is normal. Breath sounds: Normal breath sounds. Abdominal: General: Abdomen is flat. Bowel sounds are normal. Palpations: Abdomen is soft. Musculoskeletal: General: Normal range of motion. Cervical back: Normal range of motion and neck supple. Skin: General: Skin is warm and dry. Neurological: General: No focal deficit present. Mental Status: He is alert and oriented to person, place, and time. Psychiatric: Mood and Affect: Mood normal. Behavior: Behavior normal. Last Recorded Vitals Blood pressure 101/70, pulse 57, temperature 36.4 C (97.5 F), temperature source Temporal, resp. rate 16, height 1.85 m (6' 0.84), weight 83.6 kg (184 lb 4.9 oz), SpO2 91%. Assessment/Plan Problem List Items Addressed This Visit Pharyngoesophageal dysphagia Relevant Orders Esophagogastroduodenoscopy (EGD) w PEG Tube Placement, w PEG Tube Removal S/P percutaneous endoscopic gastrostomy (PEG) tube placement (Multi) Relevant Orders Esophagogastroduodenoscopy (EGD) w PEG Tube Placement, w PEG Tube Removal History of throat cancer Relevant Orders Esophagogastroduodenoscopy (EGD) w PEG Tube Placement, w PEG Tube Removal SAP BW ARCHITECT/Current Medications: (Not in a hospital admission) Current Outpatient Medications Medication Sig Dispense Refill vpijhar-xytegliwmygyu-etfpyzqv (Excedrin Migraine) 250-250-65 mg tablet Take by mouth every 6 hours if needed. Bifidobacterium infantis (ALIGN) 4 mg capsule Take by mouth. doxycycline (Vibramycin) 100 mg capsule Take 1 capsule (100 mg) by mouth 2 times a day for 10 days. Take with at least 8 ounces (large glass) of water, do not lie down for 30 minutes after 20 capsule 0 famotidine (Pepcid) 20 mg tablet Take 1 tablet (20 mg) by mouth once daily. Take 1 (one) tablet (20mg total) by mouth 2 (two) times a day. -oral metoclopramide (Reglan) 5 mg tablet Take 1 tablet (5 mg) by mouth 2 times a day. 60 tablet 11 oxygen (O2) gas therapy Inhale 1 each once daily at bedtime. sertraline (Zoloft) 25 mg tablet Take 1 tablet (25 mg) by mouth once daily. traMADol (Ultram) 50 mg tablet Take 1 tablet (50 mg) by mouth every 4 hours if needed for severe pain (7 - 10). apixaban (Eliquis) 5 mg tablet 1 tablet (5 mg) twice a day. SUMAtriptan (Imitrex) 50 mg tablet TAKE 1 TABLET BY MOUTH EVERY 2 HOURS NEEDED FOR MIGRAINE. MAX OF 200MG /24 HOURS. DO NOT REAT MORE THAN 3 /WEEK (Patient not taking: Reported on 05/26/2024) tamsulosin (Flomax) 0.4 mg 24 hr capsule Take 1 capsule (0.4 mg) by mouth once daily. (Patient not taking: Reported on 05/26/2024) No current facility-administered medications for this encounter. Vasu Jaimes DO [facility] Work Phone: 05-26-2024 History and physical note History Of Present Illness Amy Sun is a 73 y.o. 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 He is at a point where his PEG tube is no longer functioning and requires revision. He presents today for PEG tube revision with Lake button placement. Because of his high risk airway Case is being done with MAC.. Past Medical History Past Medical History: Diagnosis Date COPD (chronic obstructive pulmonary disease) (Multi) Throat cancer (Multi) Surgical History Past Surgical History: Procedure Laterality Date GASTROSTOMY TUBE PLACEMENT OTHER SURGICAL HISTORY 06/06/2021 Vasectomy OTHER SURGICAL HISTORY 06/06/2021 Inguinal hernia repair OTHER SURGICAL HISTORY many throat surgeries Social History He reports that he has quit smoking. His smoking use included cigarettes. He does not have any smokeless tobacco history on file. He reports that he does not currently use alcohol. He reports that he does not use drugs. Family History No family history on file. Allergies No Known Allergies Review of Systems Pre-sedation Evaluation: ASA Classification - ASA 3 - Patient with moderate systemic disease with functional limitations Mallampati Score - II (hard and soft palate, upper portion of tonsils and uvula visible) Physical Exam Vitals and nursing note reviewed. Constitutional: Appearance: Normal appearance. HENT: Head: Normocephalic. Mouth/Throat: Mouth: Mucous membranes are moist. Pharynx: Oropharynx is clear. Eyes: Pupils: Pupils are equal, round, and reactive to light. Cardiovascular: Rate and Rhythm: Normal rate and regular rhythm. Heart sounds: Normal heart sounds. Pulmonary: Effort: Pulmonary effort is normal. Breath sounds: Normal breath sounds. Abdominal: General: Abdomen is flat. Bowel sounds are normal. Palpations: Abdomen is soft. Musculoskeletal: General: Normal range of motion. Cervical back: Normal range of motion and neck supple. Skin: General: Skin is warm and dry. Neurological: General: No focal deficit present. Mental Status: He is alert and oriented to person, place, and time. Psychiatric: Mood and Affect: Mood normal. Behavior: Behavior normal. Last Recorded Vitals Blood pressure 101/70, pulse 57, temperature 36.4 C (97.5 F), temperature source Temporal, resp. rate 16, height 1.85 m (6' 0.84), weight 83.6 kg (184 lb 4.9 oz), SpO2 91%. Assessment/Plan Problem List Items Addressed This Visit Pharyngoesophageal dysphagia Relevant Orders Esophagogastroduodenoscopy (EGD) w PEG Tube Placement, w PEG Tube Removal S/P percutaneous endoscopic gastrostomy (PEG) tube placement (Multi) Relevant Orders Esophagogastroduodenoscopy (EGD) w PEG Tube Placement, w PEG Tube Removal History of throat cancer Relevant Orders Esophagogastroduodenoscopy (EGD) w PEG Tube Placement, w PEG Tube Removal SAP BW ARCHITECT/Current Medications: (Not in a hospital admission) Current Outpatient Medications Medication Sig Dispense Refill dngqqui-iddnfftjtydrl-ymgvqnhv (Excedrin Migraine) 250-250-65 mg tablet Take by mouth every 6 hours if needed. Bifidobacterium infantis (ALIGN) 4 mg capsule Take by mouth. doxycycline (Vibramycin) 100 mg capsule Take 1 capsule (100 mg) by mouth 2 times a day for 10 days. Take with at least 8 ounces (large glass) of water, do not lie down for 30 minutes after 20 capsule 0 famotidine (Pepcid) 20 mg tablet Take 1 tablet (20 mg) by mouth once daily. Take 1 (one) tablet (20mg total) by mouth 2 (two) times a day. -oral metoclopramide (Reglan) 5 mg tablet Take 1 tablet (5 mg) by mouth 2 times a day. 60 tablet 11 oxygen (O2) gas therapy Inhale 1 each once daily at bedtime. sertraline (Zoloft) 25 mg tablet Take 1 tablet (25 mg) by mouth once daily. traMADol (Ultram) 50 mg tablet Take 1 tablet (50 mg) by mouth every 4 hours if needed for severe pain (7 - 10). apixaban (Eliquis) 5 mg tablet 1 tablet (5 mg) twice a day. SUMAtriptan (Imitrex) 50 mg tablet TAKE 1 TABLET BY MOUTH EVERY 2 HOURS NEEDED FOR MIGRAINE. MAX OF 200MG /24 HOURS. DO NOT REAT MORE THAN 3 /WEEK (Patient not taking: Reported on 05/26/2024) tamsulosin (Flomax) 0.4 mg 24 hr capsule Take 1 capsule (0.4 mg) by mouth once daily. (Patient not taking: Reported on 05/26/2024) No current facility-administered medications for this encounter. Vasu Jaimes DO documented in this encounter [facility] Work Phone: 05-26-2024 History and physical note History Of Present Illness Amy Sun is a 73 y.o. 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 He is at a point where his PEG tube is no longer functioning and requires revision. He presents today for PEG tube revision with Lake button placement. Because of his high risk airway Case is being done with MAC.. Past Medical History Past Medical History: Diagnosis Date COPD (chronic obstructive pulmonary disease) (Multi) Throat cancer (Multi) Surgical History Past Surgical History: Procedure Laterality Date GASTROSTOMY TUBE PLACEMENT OTHER SURGICAL HISTORY 06/06/2021 Vasectomy OTHER SURGICAL HISTORY 06/06/2021 Inguinal hernia repair OTHER SURGICAL HISTORY many throat surgeries Social History He reports that he has quit smoking. His smoking use included cigarettes. He does not have any smokeless tobacco history on file. He reports that he does not currently use alcohol. He reports that he does not use drugs. Family History No family history on file. Allergies No Known Allergies Review of Systems Pre-sedation Evaluation: ASA Classification - ASA 3 - Patient with moderate systemic disease with functional limitations Mallampati Score - II (hard and soft palate, upper portion of tonsils and uvula visible) Physical Exam Vitals and nursing note reviewed. Constitutional: Appearance: Normal appearance. HENT: Head: Normocephalic. Mouth/Throat: Mouth: Mucous membranes are moist. Pharynx: Oropharynx is clear. Eyes: Pupils: Pupils are equal, round, and reactive to light. Cardiovascular: Rate and Rhythm: Normal rate and regular rhythm. Heart sounds: Normal heart sounds. Pulmonary: Effort: Pulmonary effort is normal. Breath sounds: Normal breath sounds. Abdominal: General: Abdomen is flat. Bowel sounds are normal. Palpations: Abdomen is soft. Musculoskeletal: General: Normal range of motion. Cervical back: Normal range of motion and neck supple. Skin: General: Skin is warm and dry. Neurological: General: No focal deficit present. Mental Status: He is alert and oriented to person, place, and time. Psychiatric: Mood and Affect: Mood normal. Behavior: Behavior normal. Last Recorded Vitals Blood pressure 101/70, pulse 57, temperature 36.4 C (97.5 F), temperature source Temporal, resp. rate 16, height 1.85 m (6' 0.84), weight 83.6 kg (184 lb 4.9 oz), SpO2 91%. Assessment/Plan Problem List Items Addressed This Visit Pharyngoesophageal dysphagia Relevant Orders Esophagogastroduodenoscopy (EGD) w PEG Tube Placement, w PEG Tube Removal S/P percutaneous endoscopic gastrostomy (PEG) tube placement (Multi) Relevant Orders Esophagogastroduodenoscopy (EGD) w PEG Tube Placement, w PEG Tube Removal History of throat cancer Relevant Orders Esophagogastroduodenoscopy (EGD) w PEG Tube Placement, w PEG Tube Removal SAP BW ARCHITECT/Current Medications: (Not in a hospital admission) Current Outpatient Medications Medication Sig Dispense Refill gdtaeue-cmazuacswglqw-bzdgshtj (Excedrin Migraine) 250-250-65 mg tablet Take by mouth every 6 hours if needed. Bifidobacterium infantis (ALIGN) 4 mg capsule Take by mouth. doxycycline (Vibramycin) 100 mg capsule Take 1 capsule (100 mg) by mouth 2 times a day for 10 days. Take with at least 8 ounces (large glass) of water, do not lie down for 30 minutes after 20 capsule 0 famotidine (Pepcid) 20 mg tablet Take 1 tablet (20 mg) by mouth once daily. Take 1 (one) tablet (20mg total) by mouth 2 (two) times a day. -oral metoclopramide (Reglan) 5 mg tablet Take 1 tablet (5 mg) by mouth 2 times a day. 60 tablet 11 oxygen (O2) gas therapy Inhale 1 each once daily at bedtime. sertraline (Zoloft) 25 mg tablet Take 1 tablet (25 mg) by mouth once daily. traMADol (Ultram) 50 mg tablet Take 1 tablet (50 mg) by mouth every 4 hours if needed for severe pain (7 - 10). apixaban (Eliquis) 5 mg tablet 1 tablet (5 mg) twice a day. SUMAtriptan (Imitrex) 50 mg tablet TAKE 1 TABLET BY MOUTH EVERY 2 HOURS NEEDED FOR MIGRAINE. MAX OF 200MG /24 HOURS. DO NOT REAT MORE THAN 3 /WEEK (Patient not taking: Reported on 05/26/2024) tamsulosin (Flomax) 0.4 mg 24 hr capsule Take 1 capsule (0.4 mg) by mouth once daily. (Patient not taking: Reported on 05/26/2024) No current facility-administered medications for this encounter. Vasu Jaimes DO documented in this encounter [facility] Work Phone: 05-20-2024 History of Present illness Narrative Documentation received for pt. Provider reviewed and signed. Faxed back to number provided and sent to [facility] to be scanned to pt chart. documented in this encounter [facility] 05-05-2024 Telephone encounter Note Referral placed as requested. [facility] 05-05-2024 Note Addended by: ULICES CLARK on: 05/05/2024 11:54 AM Modules accepted: Orders [facility] 05-05-2024 Note Addended by: ULICES CLARK on: 05/05/2024 11:54 AM Modules accepted: Orders [facility] 05-05-2024 Miscellaneous Notes Addended by: ULICES CLARK on: 05/05/2024 11:54 AM Modules accepted: Orders is asking for a urologist referral for Dr. Svitlana Melissa MD [facility].for Patient's Urinary retention he was in ER on 05/03/24. Thank you Amy is requesting a refill for Requested Prescriptions Pending Prescriptions Disp Refills traMADol (ULTRAM) 50 mg tablet 18 tablet 0 Sig: Take 1 (one) tablet (50 mg total) by mouth every 4 (four) hours as needed for pain (Days supply per fill: . Last refill: 12/18/23 [facility] Last appt: 03/17/24 Upcoming appt (when is it due or is it scheduled): 06/08/24 Follow up: Refill pending for review without additional follow up based on information above. documented in this encounter [facility] 05-05-2024 Miscellaneous Notes Referral placed as requested. Addended by: ULICES CLARK on: 05/05/2024 11:54 AM Modules accepted: Orders is asking for a urologist referral for MD Deanne Christensen.for Patient's Urinary retention he was in ER on 05/03/24. Thank you Amy is requesting a refill for Requested Prescriptions Pending Prescriptions Disp Refills traMADol (ULTRAM) 50 mg tablet 18 tablet 0 Sig: Take 1 (one) tablet (50 mg total) by mouth every 4 (four) hours as needed for pain (Days supply per fill: . Last refill: 12/18/23 HP Last appt: 03/17/24 Upcoming appt (when is it due or is it scheduled): 06/08/24 Follow up: Refill pending for review without additional follow up based on information above. documented in this encounter [facility] 05-03-2024 Telephone encounter Note is asking for a urologist referral for MD Deanne Christensen.for Patient's Urinary retention he was in ER on 05/03/24. Thank you [facility] 05-03-2024 Miscellaneous Notes is asking for a urologist referral for Dr. Svitlana Melissa MD [facility].for Patient's Urinary retention he was in ER on 05/03/24. Thank you Amy is requesting a refill for Requested Prescriptions Pending Prescriptions Disp Refills traMADol (ULTRAM) 50 mg tablet 18 tablet 0 Sig: Take 1 (one) tablet (50 mg total) by mouth every 4 (four) hours as needed for pain (Days supply per fill: . Last refill: 12/18/23 HP Last appt: 03/17/24 Upcoming appt (when is it due or is it scheduled): 06/08/24 Follow up: Refill pending for review without additional follow up based on information above. documented in this encounter [facility] 05-03-2024 Telephone encounter Note Amy is requesting a refill for Requested Prescriptions Pending Prescriptions Disp Refills traMADol (ULTRAM) 50 mg tablet 18 tablet 0 Sig: Take 1 (one) tablet (50 mg total) by mouth every 4 (four) hours as needed for pain (Days supply per fill: . Last refill: 12/18/23 HP Last appt: 03/17/24 Upcoming appt (when is it due or is it scheduled): 06/08/24 Follow up: Refill pending for review without additional follow up based on information above. [facility] 04-26-2024 Telephone encounter Note Amy is requesting a refill for Requested Prescriptions Pending Prescriptions Disp Refills tamsulosin (FLOMAX) 0.4 mg capsule 30 capsule 3 Sig: Take 1 (one) capsule (0.4 mg total) by mouth daily . Last refill: 01/01/24 Last appt: 03/17/24 Upcoming appt (when is it due or is it scheduled): 06/08/24 Follow up: Refill pending for review without additional follow up based on information above. [facility] 04-26-2024 Miscellaneous Notes Amy is requesting a refill for Requested Prescriptions Pending Prescriptions Disp Refills tamsulosin (FLOMAX) 0.4 mg capsule 30 capsule 3 Sig: Take 1 (one) capsule (0.4 mg total) by mouth daily . Last refill: 01/01/24 Last appt: 03/17/24 Upcoming appt (when is it due or is it scheduled): 06/08/24 Follow up: Refill pending for review without additional follow up based on information above. documented in this encounter [facility] 04-22-2024 Evaluation + Plan note Associated Problem(s): Single subsegmental pulmonary embolism without acute cor pulmonale - admitted 12/21-08/2023 [facility] Summary Reviewed: AMS; PE, PNA; Details as noted. - 12/22/23 CTPE ([facility] admission - PE) Impression 1. Exam is positive for pulmonary embolus with filling defect in a right lower lobe posterior segmental pulmonary artery. There is reversal of the normal interventricular septal bowing suggestive of acute right heart strain. 2. Rounded consolidative opacity in the posterior right upper lobe and small cavitary nodule in the superior segment of the right lower lobe are new when compared to 06/14/2023. These are favored to relate to acute infectious/inflammatory nodules/pneumonia with additional patchy areas of infectious/inflammatory infiltrate in the left lower lobe. Short-term follow-up chest CT in 3 months is recommended to exclude developing neoplasm. 3. Right lower lobe bronchiectasis with bronchial wall thickening and areas of mucous plugging consistent with acute bronchitis. Airway secretions are present in the right mainstem bronchus. --- ffup CT 3 mos 03/23/24 - 12/23/23 Duplex examination using B-mode, color and spectral Doppler of extremity veins including responses to compression and other maneuvers; complete bilateral study. Conclusions * No evidence of deep or superficial vein thrombosis in the lower extremities bilaterally. * Hypoechoic structure noted in the left popliteal fossa measuring 2.4 x 2.8 x 1.1 cm. - 12/23/23 Echocardiogram [facility] - 12/24/23 CXR [place] Impression Somewhat low lung volumes. Mild interstitial changes. No focal infiltrates. - on Eliquis; most prob indefinitely (has Mets. Prostate Cancer) - also ff'd by Heme-Onc [facility] Dr. Brandon [facility] 04-22-2024 Evaluation + Plan note Associated Problem(s): Malignant neoplasm of base of tongue - hx of Squamous cell CA Tongue, s/p PEG; hx of Dysphagia and Aspn PNA. - ff'd by [facility] Onc Dr. Brandon; ENT Dr. Holder - 03/21/[address] [facility] [address] Brandon: ASSESSMENT / PLAN: 1. 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 He is due to see Dr. Holder. 2. Weight loss. Found to have pharyngoesophageal dysphagia. He has been referred for a PEG. He saw Dr. Payan and they decided to defer on the peg. He reports that his appetite has improved. He is aware the possible CT findings could represent aspiration. Patient was seen by speech therapy on 03/04/2023. No safe diet was recommended the patient and the understand risks of continued feeding. Will continue to follow. 3. Lung cancer screening/Nodule. He quit smoking in 2008 but prior to that had a 3 ppd for [address] scans performed while hospitalized in February. He again was found to have a trach in the right lower lobe. Overall, the lung was suspected to represent pneumonia. I will repeat CAT scans in 3 months to ensure clearing. 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 5. Right Kidney.had MRI dated March 12, 2023. This showed multiple bilateral renal cysts. Predominant Bosniak 1 and Bosniak 2. Some of these lesions are too Femara to fully characterize but there are no overtly suspicious renal masses. - 07/23/23 [facility] Onc ffup Dr. Brandon Reviewed: Since her last visit, patient reports that he has been seen by Dr. Rivas that time to discuss possible vocal cord fillers. Patient reports he is not interested. In addition patient has been seen by speech therapy. This has also been stabilized. He continues to use his feeding tube. -- ASSESSMENT / PLAN: 1. 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 He is due to see Dr. Holder. 2. Weight loss. Patient is status post PEG. Patient is been evaluated by nutrition. He is receiving additional supplementation. He is having more trouble aspiration. 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 Patient has been evaluated by ENT. Patient was seen by Dr. Rivas. They are talking about vocal cord filler. No clear evidence of malignancy. Patient return to see me in 6 months. 3. Increasing nodular densities right lower lobe. This would likely represent aspiration however given the severity we will repeat CT scans in 6 months. 4. Pleural-based density. Previously mentioned pleural-based lesion is no longer seen or mentioned on this CT. I will ask for direct comparison. 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 6. Right Kidney.had MRI dated March 12, 2023. This showed multiple bilateral renal cysts. Predominant Bosniak 1 and Bosniak 2. - 01/26/24 [facility] Onc ffup Dr. Brandon Reviewed: --- seen by Dr. Rivas and they decided not to have the vocal cord fillers placed due to inability to speak. He continues to use his feeding tube. ASSESSMENT / PLAN: 1. 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 He is due to see Dr. Holder. 2. Weight loss. Patient is status post PEG. Patient is been evaluated by nutrition. He is receiving additional supplementation. He is having more trouble aspiration. 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 He is s/p peg. No clear evidence of malignancy. Patient return to see me in 6 months. 3. Increasing nodular densities right lower lobe. He is due to see Dr. Bojorquez in followup. 4. Pleural-based density. 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 6. Right Kidney.had MRI dated March 12, 2023. This showed multiple bilateral renal cysts. Predominant Bosniak 1 and Bosniak 2. Since most recent CT scan shows abnormality involving the right kidney. I will discuss the case with Dr. Perez from whether further workup needs to be done. Consider urology evaluation. [facility] 04-22-2024 Miscellaneous Notes Associated Problem(s): Single subsegmental pulmonary embolism without acute cor pulmonale - admitted 12/21-08/2023 [facility] Summary Reviewed: AMS; PE, PNA; Details as noted. - 12/22/23 CTPE ([facility] admission - PE) Impression 1. Exam is positive for pulmonary embolus with filling defect in a right lower lobe posterior segmental pulmonary artery. There is reversal of the normal interventricular septal bowing suggestive of acute right heart strain. 2. Rounded consolidative opacity in the posterior right upper lobe and small cavitary nodule in the superior segment of the right lower lobe are new when compared to 06/14/2023. These are favored to relate to acute infectious/inflammatory nodules/pneumonia with additional patchy areas of infectious/inflammatory infiltrate in the left lower lobe. Short-term follow-up chest CT in 3 months is recommended to exclude developing neoplasm. 3. Right lower lobe bronchiectasis with bronchial wall thickening and areas of mucous plugging consistent with acute bronchitis. Airway secretions are present in the right mainstem bronchus. --- ffup CT 3 mos 03/23/24 - 12/23/23 Duplex examination using B-mode, color and spectral Doppler of extremity veins including responses to compression and other maneuvers; complete bilateral study. Conclusions * No evidence of deep or superficial vein thrombosis in the lower extremities bilaterally. * Hypoechoic structure noted in the left popliteal fossa measuring 2.4 x 2.8 x 1.1 cm. - 12/23/23 Echocardiogram [facility] - 12/24/23 CXR [facility] Impression Somewhat low lung volumes. Mild interstitial changes. No focal infiltrates. - on Eliquis; most prob indefinitely (has Mets. Prostate Cancer) - also ff'd by Heme-Onc [facility] Dr. Brandon Associated Problem(s): Malignant neoplasm of base of tongue - hx of Squamous cell CA Tongue, s/p PEG; hx of Dysphagia and Aspn PNA. - ff'd by [facility] Onc Dr. Brandon; ENT Dr. Holder - 03/21/[address] [facility] [address] Brandon: ASSESSMENT / PLAN: 1. 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 He is due to see Dr. Holder. 2. Weight loss. Found to have pharyngoesophageal dysphagia. He has been referred for a PEG. He saw Dr. Payan and they decided to defer on the peg. He reports that his appetite has improved. He is aware the possible CT findings could represent aspiration. Patient was seen by speech therapy on 03/04/2023. No safe diet was recommended the patient and the understand risks of continued feeding. Will continue to follow. 3. Lung cancer screening/Nodule. He quit smoking in 2008 but prior to that had a 3 ppd for [address] scans performed while hospitalized in February. He again was found to have a trach in the right lower lobe. Overall, the lung was suspected to represent pneumonia. I will repeat CAT scans in 3 months to ensure clearing. 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 5. Right Kidney.had MRI dated March 12, 2023. This showed multiple bilateral renal cysts. Predominant Bosniak 1 and Bosniak 2. Some of these lesions are too Femara to fully characterize but there are no overtly suspicious renal masses. - 07/23/[address] [facility] [address] Brandon Reviewed: Since her last visit, patient reports that he has been seen by Dr. Rivas that time to discuss possible vocal cord fillers. Patient reports he is not interested. In addition patient has been seen by speech therapy. This has also been stabilized. He continues to use his feeding tube. -- ASSESSMENT / PLAN: 1. 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 He is due to see Dr. Holder. 2. Weight loss. Patient is status post PEG. Patient is been evaluated by nutrition. He is receiving additional supplementation. He is having more trouble aspiration. 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 Patient has been evaluated by ENT. Patient was seen by Dr. Rivas. They are talking about vocal cord filler. No clear evidence of malignancy. Patient return to see me in 6 months. 3. Increasing nodular densities right lower lobe. This would likely represent aspiration however given the severity we will repeat CT scans in 6 months. 4. Pleural-based density. Previously mentioned pleural-based lesion is no longer seen or mentioned on this CT. I will ask for direct comparison. 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 6. Right Kidney.had MRI dated March 12, 2023. This showed multiple bilateral renal cysts. Predominant Bosniak 1 and Bosniak 2. - 01/26/[address] [facility] [address] Brandon Reviewed: --- seen by Dr. Rivas and they decided not to have the vocal cord fillers placed due to inability to speak. He continues to use his feeding tube. ASSESSMENT / PLAN: 1. 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 He is due to see Dr. Holder. 2. Weight loss. Patient is status post PEG. Patient is been evaluated by nutrition. He is receiving additional supplementation. He is having more trouble aspiration. 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 He is s/p peg. No clear evidence of malignancy. Patient return to see me in 6 months. 3. Increasing nodular densities right lower lobe. He is due to see Dr. Bojorquez in followup. 4. Pleural-based density. 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 6. Right Kidney.had MRI dated March 12, 2023. This showed multiple bilateral renal cysts. Predominant Bosniak 1 and Bosniak 2. Since most recent CT scan shows abnormality involving the right kidney. I will discuss the case with Dr. Perez from whether further workup needs to be done. Consider urology evaluation. Associated Problem(s): COPD (chronic obstructive pulmonary disease) - admitted [facility] 05/24/0707/26/2023 Discharge summary reviewed: PNA, trace hemoptysis - emp Levaquin, Prednisone. Hypoxia - O2 weaned off. AECOPD, HTN, BPH, GERD, Severe PCM malnutrion, s/p PEG, HLD - fmr Smoker; hx of COPD, as per records; was on Albuterol nebs prev. - may have Asthma COPD overlap; PFT 08/2023. - 08/22/2023 PFT: - Spirometry - MODERATELY SEVERE OBSTRUCTION, FEV1/FVC 58%, FEV1 2.03L 58% predicted, FVC 3.53L 74% predicted; w/ SMALL AIRWAY flow limitation. - Significant response to bronchodilator: LARGE response during this testing, as may be seen w/ Asthma, RAD (FEV1 increased 15%). - Lung Volume - HYPERINFLATION, INCREASED TLC 12.03L 167% predicted, RV 8.78L 314% predicted - w/ SEVERE AIR TRAPPING. - Diffusing Capacity: MILDLY REDUCED DLCO 66% predicted, DL/VA 107% (which normalizes when adjusted for lung volume, suggesting probably extraparenchymal cause; e.g., body habitus; may also have emphysema). - Flow Volume Loops - Obstructive pattern; No overt upper airway obstruction pattern. - Consider LAMA/LABA or try triple tx Trelegy, Breztri, or other inhaler regimen, as indic; if feasible; albuterol as needed; use spacer - 12/31/23 cont Albuterol prn, nebs prn; maint inhalers/nebs, if needed - consider Daliresp subseq as indic., as tolerated; if feasible - 04/22/24 cont duonebs; budesonide+formoterol nebs alternatively - patient benefits from nebulizer treatments - Inhaler technique teaching done/reviewed prev.; rinse mouth after inhaler use, especially steroid inhalers - Smoking cessation reinforced: quit - advised OTC Calcium+Vit D, lifestyle recs for osteoporosis prevention, especially if on frequent or long-term systemic steroids (osteoporosis screening/management as per PCP prn, as indic) - monitor PFT prn, as indicated - monitor imaging prn, Chest radiograph as needed (CT Chest as indicated) - Pulmonary rehab program, if feasible; rec to stay active - Influenza, pneumococcal, COVID19, pulmonary vaccines recommended, updated Associated Problem(s): Chronic respiratory failure with hypoxia, on home oxygen therapy - Continue O2 as necessary; may titrate to keep spO2>90%; wean as tolerated; pt benefits from O2. - Reinforced compliance. Associated Problem(s): Centrilobular emphysema Mild ULP; smoking hx; See COPD txs Associated Problem(s): Aspiration pneumonia of both lungs - admitted 06/13- DC Summary Reviewed: Aspn PNA bilat. - IV atb, steroids; O2 weaned off; continuous tube feeds at home was set-up. DC w/ emp Levaquin, Prednisone taper. Details as noted. CT Chest 06/14/2023 IMPRESSION: 1. Increasing nodular densities right lower lobe most likely inflammatory, correlate for pneumonitis/pneumonia. Prominent gas in the esophagus suggesting reflux, question aspiration pneumonia. 2. Enlarging pleural-based density containing small amounts of gas adjacent to the inflammatory density in the right lower lobe noted above. Seen in the posterior inferior medial right chest centered at the T10-T11 level. Question whether this a chronic inflammatory process within the lung or adjacent pleura. There is no adjacent bony erosion or increasing pleural effusion. Has been present previously of variable size, large larger on 05/09/2023 and decreased on 05/24/2023. - 07/18/23 CT chest w/ c [facility] IMPRESSION: 1. Since 06/14/2023, mild increase in multifocal tree-in-bud opacities, most pronounced within the right lower lobe, and to a lesser degree within the right middle lobe and left lower lobe, compatible with infection/inflammation. The distribution is consistent with aspiration. 2. Persistent distal bronchiolar mucous plugging within the right lower lobe. Dependent secretions are present within the right mainstem bronchus and bronchus intermedius. 3. Unchanged mildly enlarged mediastinal lymph nodes. - 12/22/23 CTPE ([facility] admission - [place]) Impression 1. Exam is positive for pulmonary embolus with filling defect in a right lower lobe posterior segmental pulmonary artery. There is reversal of the normal interventricular septal bowing suggestive of acute right heart strain. 2. Rounded consolidative opacity in the posterior right upper lobe and small cavitary nodule in the superior segment of the right lower lobe are new when compared to 06/14/2023. These are favored to relate to acute infectious/inflammatory nodules/pneumonia with additional patchy areas of infectious/inflammatory infiltrate in the left lower lobe. Short-term follow-up chest CT in 3 months is recommended to exclude developing neoplasm. 3. Right lower lobe bronchiectasis with bronchial wall thickening and areas of mucous plugging consistent with acute bronchitis. Airway secretions are present in the right mainstem bronchus. --- ffup CT 3 mos 03/23/24 04/08/2024 CT Chest w/o contrast reviewed: Previous RLL infiltrates, atelectasis on CT 06/14/23 - Improved, Resolved. COPD w/ ULP Emphysema, RLL mild bronchiectatic changes - Similar to prior. New, small lung nodules, largest LLL 8.7 mm - probably mild inflammation, possibly infection. Otherwise, No new suspicious lung nodules or enlarged lymph nodes. -- take course of antibiotic Cefdinir and Prednisone; ordered ([facility]) --- close ffup CT 3 mos. 07/06/24 - clinically improved; s/p emp atb - aspn precautions; on tube feeds - ffup CT for resolution - further evaluation, management pending results, clinical course. documented in this encounter [facility] 04-22-2024 Evaluation + Plan note Associated Problem(s): COPD (chronic obstructive pulmonary disease) - admitted [facility] 05/24/0707/26/2023 Discharge summary reviewed: PNA, trace hemoptysis - emp Levaquin, Prednisone. Hypoxia - O2 weaned off. AECOPD, HTN, BPH, GERD, Severe PCM malnutrion, s/p PEG, HLD - fmr Smoker; hx of COPD, as per records; was on Albuterol nebs prev. - may have Asthma COPD overlap; PFT 08/2023. - 08/22/2023 PFT: - Spirometry - MODERATELY SEVERE OBSTRUCTION, FEV1/FVC 58%, FEV1 2.03L 58% predicted, FVC 3.53L 74% predicted; w/ SMALL AIRWAY flow limitation. - Significant response to bronchodilator: LARGE response during this testing, as may be seen w/ Asthma, RAD (FEV1 increased 15%). - Lung Volume - HYPERINFLATION, INCREASED TLC 12.03L 167% predicted, RV 8.78L 314% predicted - w/ SEVERE AIR TRAPPING. - Diffusing Capacity: MILDLY REDUCED DLCO 66% predicted, DL/VA 107% (which normalizes when adjusted for lung volume, suggesting probably extraparenchymal cause; e.g., body habitus; may also have emphysema). - Flow Volume Loops - Obstructive pattern; No overt upper airway obstruction pattern. - Consider LAMA/LABA or try triple tx Trelegy, Breztri, or other inhaler regimen, as indic; if feasible; albuterol as needed; use spacer - 12/31/23 cont Albuterol prn, nebs prn; maint inhalers/nebs, if needed - consider Daliresp subseq as indic., as tolerated; if feasible - 04/22/24 cont duonebs; budesonide+formoterol nebs alternatively - patient benefits from nebulizer treatments - Inhaler technique teaching done/reviewed prev.; rinse mouth after inhaler use, especially steroid inhalers - Smoking cessation reinforced: quit - advised OTC Calcium+Vit D, lifestyle recs for osteoporosis prevention, especially if on frequent or long-term systemic steroids (osteoporosis screening/management as per PCP prn, as indic) - monitor PFT prn, as indicated - monitor imaging prn, Chest radiograph as needed (CT Chest as indicated) - Pulmonary rehab program, if feasible; rec to stay active - Influenza, pneumococcal, COVID19, pulmonary vaccines recommended, updated [facility] 04-22-2024 Evaluation + Plan note Associated Problem(s): Chronic respiratory failure with hypoxia, on home oxygen therapy - Continue O2 as necessary; may titrate to keep spO2>90%; wean as tolerated; pt benefits from O2. - Reinforced compliance. [facility] 04-22-2024 Evaluation + Plan note Associated Problem(s): Centrilobular emphysema Mild ULP; smoking hx; See COPD txs [facility] 04-22-2024 Evaluation + Plan note Associated Problem(s): Aspiration pneumonia of both lungs - admitted 06/13- DC Summary Reviewed: Aspn PNA bilat. - IV atb, steroids; O2 weaned off; continuous tube feeds at home was set-up. DC w/ emp Levaquin, Prednisone taper. Details as noted. CT Chest 06/14/2023 IMPRESSION: 1. Increasing nodular densities right lower lobe most likely inflammatory, correlate for pneumonitis/pneumonia. Prominent gas in the esophagus suggesting reflux, question aspiration pneumonia. 2. Enlarging pleural-based density containing small amounts of gas adjacent to the inflammatory density in the right lower lobe noted above. Seen in the posterior inferior medial right chest centered at the T10-T11 level. Question whether this a chronic inflammatory process within the lung or adjacent pleura. There is no adjacent bony erosion or increasing pleural effusion. Has been present previously of variable size, large larger on 05/09/2023 and decreased on 05/24/2023. - 07/18/23 CT chest w/ c [facility] IMPRESSION: 1. Since 06/14/2023, mild increase in multifocal tree-in-bud opacities, most pronounced within the right lower lobe, and to a lesser degree within the right middle lobe and left lower lobe, compatible with infection/inflammation. The distribution is consistent with aspiration. 2. Persistent distal bronchiolar mucous plugging within the right lower lobe. Dependent secretions are present within the right mainstem bronchus and bronchus intermedius. 3. Unchanged mildly enlarged mediastinal lymph nodes. - 12/22/23 CTPE ([facility] admission - [place]) Impression 1. Exam is positive for pulmonary embolus with filling defect in a right lower lobe posterior segmental pulmonary artery. There is reversal of the normal interventricular septal bowing suggestive of acute right heart strain. 2. Rounded consolidative opacity in the posterior right upper lobe and small cavitary nodule in the superior segment of the right lower lobe are new when compared to 06/14/2023. These are favored to relate to acute infectious/inflammatory nodules/pneumonia with additional patchy areas of infectious/inflammatory infiltrate in the left lower lobe. Short-term follow-up chest CT in 3 months is recommended to exclude developing neoplasm. 3. Right lower lobe bronchiectasis with bronchial wall thickening and areas of mucous plugging consistent with acute bronchitis. Airway secretions are present in the right mainstem bronchus. --- ffup CT 3 mos 03/23/24 04/08/2024 CT Chest w/o contrast reviewed: Previous RLL infiltrates, atelectasis on CT 06/14/23 - Improved, Resolved. COPD w/ ULP Emphysema, RLL mild bronchiectatic changes - Similar to prior. New, small lung nodules, largest LLL 8.7 mm - probably mild inflammation, possibly infection. Otherwise, No new suspicious lung nodules or enlarged lymph nodes. -- take course of antibiotic Cefdinir and Prednisone; ordered ([facility]) --- close ffup CT 3 mos. 07/06/24 - clinically improved; s/p emp atb - aspn precautions; on tube feeds - ffup CT for resolution - further evaluation, management pending results, clinical course. [facility] 04-22-2024 History of Present illness Narrative Currently smoking or Hx of smoking -former Oxygen use _3L NOC patient is benefiting from oxygen use. Do you have a CPAP- no DME company- [facility] Most recent CT- 04/01/24 Most recent PFT- 08/22/23 Symptoms include: coughing, Increase in shortness of breath- no Dyspnea upon exertion- no Dyspnea at rest- no Cough- productive- yes Have you had the Covid 19 vaccine- 10/ Do you need a Medication refill? no Pt presents for review of CT Chest Maintenance medication - none Maintenance inhaler- Rescue medication-Albuterol (2.5 MG/3ML) 0.083% inhalation solution Albuterol (2.5 MG/3ML) 0.083% inhalation solution,budesonide 0.5 MG/2ML nebulizer suspension formoterol (Perforomist) 20 MCG/2ML Nebu Soln nebulizer solution,Ipratropium-albuterol 0.5-2.5 (3) MG/3ML nebulizer solution,Revefenacin (Yupelri) 175 MCG/3ML Solution Follow up to review CT Chest (04/01/24) Patient is a 73 y.o. male who came to be evaluated and managed for COPD, FR Hypoxia, Pneumonia hosp 05/2023 Chronic Obstructive Pulmonary Disease . ICD-10-CM 1. Chronic obstructive pulmonary disease, unspecified COPD type J44.9 roflumilast (Daliresp) 500 MCG tablet 2. Centrilobular emphysema J43.2 3. Chronic respiratory failure with hypoxia, on home oxygen therapy J96.11 Z99.81 4. Malignant neoplasm of base of tongue C01 5. Single subsegmental pulmonary embolism without acute cor pulmonale I26.93 Problem List Items Addressed This Visit Malignant neoplasm of base of tongue - hx of Squamous cell CA Tongue, s/p PEG; hx of Dysphagia and Aspn PNA. - ff'd by [facility] Dr. Brandon; ENT Dr. Holder - 03/21/[address] [facility] [address] Brandon: ASSESSMENT / PLAN: 1. 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 He is due to see Dr. Holder. 2. Weight loss. Found to have pharyngoesophageal dysphagia. He has been referred for a PEG. He saw Dr. Payan and they decided to defer on the peg. He reports that his appetite has improved. He is aware the possible CT findings could represent aspiration. Patient was seen by speech therapy on 03/04/2023. No safe diet was recommended the patient and the understand risks of continued feeding. Will continue to follow. 3. Lung cancer screening/Nodule. He quit smoking in 2008 but prior to that had a 3 ppd for [address] scans performed while hospitalized in February. He again was found to have a trach in the right lower lobe. Overall, the lung was suspected to represent pneumonia. I will repeat CAT scans in 3 months to ensure clearing. 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 5. Right Kidney.had MRI dated March 12, 2023. This showed multiple bilateral renal cysts. Predominant Bosniak 1 and Bosniak 2. Some of these lesions are too Femara to fully characterize but there are no overtly suspicious renal masses. - 07/23/[address] [facility] [address] Brandon Reviewed: Since her last visit, patient reports that he has been seen by Dr. Rivas that time to discuss possible vocal cord fillers. Patient reports he is not interested. In addition patient has been seen by speech therapy. This has also been stabilized. He continues to use his feeding tube. -- ASSESSMENT / PLAN: 1. 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 He is due to see Dr. Holder. 2. Weight loss. Patient is status post PEG. Patient is been evaluated by nutrition. He is receiving additional supplementation. He is having more trouble aspiration. 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 Patient has been evaluated by ENT. Patient was seen by Dr. Rivas. They are talking about vocal cord filler. No clear evidence of malignancy. Patient return to see me in 6 months. 3. Increasing nodular densities right lower lobe. This would likely represent aspiration however given the severity we will repeat CT scans in 6 months. 4. Pleural-based density. Previously mentioned pleural-based lesion is no longer seen or mentioned on this CT. I will ask for direct comparison. 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 6. Right Kidney.had MRI dated March 12, 2023. This showed multiple bilateral renal cysts. Predominant Bosniak 1 and Bosniak 2. - 01/26/[address] [facility] [address] Brandon Reviewed: --- seen by Dr. Rivas and they decided not to have the vocal cord fillers placed due to inability to speak. He continues to use his feeding tube. ASSESSMENT / PLAN: 1. 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 He is due to see Dr. Holder. 2. Weight loss. Patient is status post PEG. Patient is been evaluated by nutrition. He is receiving additional supplementation. He is having more trouble aspiration. 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 He is s/p peg. No clear evidence of malignancy. Patient return to see me in 6 months. 3. Increasing nodular densities right lower lobe. He is due to see Dr. Bojorquez in followup. 4. Pleural-based density. 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 6. Right Kidney.had MRI dated March 12, 2023. This showed multiple bilateral renal cysts. Predominant Bosniak 1 and Bosniak 2. Since most recent CT scan shows abnormality involving the right kidney. I will discuss the case with Dr. Perez from whether further workup needs to be done. Consider urology evaluation. COPD (chronic obstructive pulmonary disease) - Primary - admitted [facility] 05/24/0707/26/2023 Discharge summary reviewed: PNA, trace hemoptysis - emp Levaquin, Prednisone. Hypoxia - O2 weaned off. AECOPD, HTN, BPH, GERD, Severe PCM malnutrion, s/p PEG, HLD - fmr Smoker; hx of COPD, as per records; was on Albuterol nebs prev. - may have Asthma COPD overlap; PFT 08/2023. - 08/22/2023 PFT: - Spirometry - MODERATELY SEVERE OBSTRUCTION, FEV1/FVC 58%, FEV1 2.03L 58% predicted, FVC 3.53L 74% predicted; w/ SMALL AIRWAY flow limitation. - Significant response to bronchodilator: LARGE response during this testing, as may be seen w/ Asthma, RAD (FEV1 increased 15%). - Lung Volume - HYPERINFLATION, INCREASED TLC 12.03L 167% predicted, RV 8.78L 314% predicted - w/ SEVERE AIR TRAPPING. - Diffusing Capacity: MILDLY REDUCED DLCO 66% predicted, DL/VA 107% (which normalizes when adjusted for lung volume, suggesting probably extraparenchymal cause; e.g., body habitus; may also have emphysema). - Flow Volume Loops - Obstructive pattern; No overt upper airway obstruction pattern. - Consider LAMA/LABA or try triple tx Trelegy, Breztri, or other inhaler regimen, as indic; if feasible; albuterol as needed; use spacer - 12/31/23 cont Albuterol prn, nebs prn; maint inhalers/nebs, if needed - consider Daliresp subseq as indic., as tolerated; if feasible - 04/22/24 cont duonebs; budesonide+formoterol nebs alternatively - patient benefits from nebulizer treatments - Inhaler technique teaching done/reviewed prev.; rinse mouth after inhaler use, especially steroid inhalers - Smoking cessation reinforced: quit - advised OTC Calcium+Vit D, lifestyle recs for osteoporosis prevention, especially if on frequent or long-term systemic steroids (osteoporosis screening/management as per PCP prn, as indic) - monitor PFT prn, as indicated - monitor imaging prn, Chest radiograph as needed (CT Chest as indicated) - Pulmonary rehab program, if feasible; rec to stay active - Influenza, pneumococcal, COVID19, pulmonary vaccines recommended, updated Relevant Medications roflumilast (Daliresp) 500 MCG tablet Centrilobular emphysema Mild ULP; smoking hx; See COPD txs [facility] subsegmental pulmonary embolism without acute cor pulmonale - admitted 12/21-08/2023 [facility] Summary Reviewed: AMS; PE, PNA; Details as noted. - 12/22/23 CTPE ([facility] admission - PE) Impression 1. Exam is positive for pulmonary embolus with filling defect in a right lower lobe posterior segmental pulmonary artery. There is reversal of the normal interventricular septal bowing suggestive of acute right heart strain. 2. Rounded consolidative opacity in the posterior right upper lobe and small cavitary nodule in the superior segment of the right lower lobe are new when compared to 06/14/2023. These are favored to relate to acute infectious/inflammatory nodules/pneumonia with additional patchy areas of infectious/inflammatory infiltrate in the left lower lobe. Short-term follow-up chest CT in 3 months is recommended to exclude developing neoplasm. 3. Right lower lobe bronchiectasis with bronchial wall thickening and areas of mucous plugging consistent with acute bronchitis. Airway secretions are present in the right mainstem bronchus. --- ffup CT 3 mos 03/23/24 - 12/23/23 Duplex examination using B-mode, color and spectral Doppler of extremity veins including responses to compression and other maneuvers; complete bilateral study. Conclusions * No evidence of deep or superficial vein thrombosis in the lower extremities bilaterally. * Hypoechoic structure noted in the left popliteal fossa measuring 2.4 x 2.8 x 1.1 cm. - 12/23/23 Echocardiogram [facility] - 12/24/23 CXR [facility] Impression Somewhat low lung volumes. Mild interstitial changes. No focal infiltrates. - on Eliquis; most prob indefinitely (has Mets. Prostate Cancer) - also ff'd by Heme-Onc [facility] Dr. Brandon Chronic respiratory failure with hypoxia, on home oxygen therapy - Continue O2 as necessary; may titrate to keep spO2>90%; wean as tolerated; pt benefits from O2. - Reinforced compliance. HPI 04/22/24: not in ae, on inhalers. Imaging, PFT, 6mwt, labs, Notes Reviewed. On apixaban/Eliquis - no recurrent VTE, bleeding. - 01/26/[address] [facility] [address] Brandon Reviewed: --- seen by Dr. Rivas and they decided not to have the vocal cord fillers placed due to inability to speak. He continues to use his feeding tube. ASSESSMENT / PLAN: 1. 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 He is due to see Dr. Holder. 2. Weight loss. Patient is status post PEG. Patient is been evaluated by nutrition. He is receiving additional supplementation. He is having more trouble aspiration. 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 He is s/p peg. No clear evidence of malignancy. Patient return to see me in 6 months. 3. Increasing nodular densities right lower lobe. He is due to see Dr. Bojorquez in followup. 4. Pleural-based density. 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 6. Right Kidney.had MRI dated March 12, 2023. This showed multiple bilateral renal cysts. Predominant Bosniak 1 and Bosniak 2. Since most recent CT scan shows abnormality involving the right kidney. I will discuss the case with Dr. Perez from whether further workup needs to be done. Consider urology evaluation. 12/31/23: not in ae, on inhalers. Imaging, PFT, 6mwt, labs, Notes Reviewed. - admitted 12/21-08/2023 [facility] Summary Reviewed: AMS; PE, PNA; Details as noted. --- Right lower lobe posterior segmental pulmonary artery with acute right heart strain. Echo, ejection fraction 68%, no pulmonary hypertension Cardiology consulted, recommendation no indication for intervention, recommended switch to oral anticoagulation Start heparin drip initially, switched to oral Eliquis on 12/23 Doppler studies lower extremity negative for DVT Chest pain nonspecific on 12/23, responded to Tylenol and oxycodone Patient pain-free on 12/24 acute hypoxemic respiratory failure, current on NC 2 L/min. Acute bilateral CAP- right upper lobe and left lower lobe. Acute bronchitis. Right lower lobe bronchiectasis Follow-up chest CT in 3 months is recommended to exclude developing neoplasm Urine Legionella and strep antigen. Negative Start ceftriaxone and azithromycin initially, azithromycin stop on 12/22, patient discharged on Augmentin for 5 days course Chest PT DuoNeb every 6 as needed Oxygen has dropped since night of 12/23 with findings of fluid overload on chest x-ray proBNP within normal limit Lasix 20 mg IV once on 12/23, 10 mg on 12/24 Patient prior to this hospitalization was evaluated for home oxygen at that time he refused but he is okay to wear oxygen at home if needed RT assessed him for home oxygen Right lower extremity pain Possibly muscle strain Knee x-ray negative for acute findings Venous Doppler negative for DVT Tylenol as needed Tongue cancer status post PEG resection, now on PEG tube for dysphagia Continue with PEG tube for feeding, hold tube feed until cardiology evaluate the patient Dietitian consulted Patient has had intermittent tongue complete since admission, contribution due to IV heparin, continue heparin drip for now as patient does not have any active bleed and risk of thrombosis is higher than risk of bleed, patient and patient okay with the plan No more bleeding on 12/24 BPH Urinary retention Continue Flomax, patient stated that Flomax extended release cannot be pushed through PEG tube and requested Serna catheter be discontinued Serna catheter inserted upon admission, discontinued on 12/23 Patient reported some urinary incontinence on 12/24, multifactorial due to Lasix, status post discontinue Serna catheter, patient to follow-up with urology as outpatient, likely incontinence is temporary Depression Anxiety Continue sertralineRLL segmental PE w/ RT heart strain 08/26/23: not in ae, on inhaler albuterol. Imaging, PFT, 6mwt, labs, Notes Reviewed. - 08/07/23 PCP ffup Reviewed. - 07/23/[address] [facility] [address] Brandon Reviewed: Since her last visit, patient reports that he has been seen by Dr. Rivas that time to discuss possible vocal cord fillers. Patient reports he is not interested. In addition patient has been seen by speech therapy. This has also been stabilized. He continues to use his feeding tube. -- ASSESSMENT / PLAN: 1. 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 He is due to see Dr. Holder. 2. Weight loss. Patient is status post PEG. Patient is been evaluated by nutrition. He is receiving additional supplementation. He is having more trouble aspiration. 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 Patient has been evaluated by ENT. Patient was seen by Dr. Rivas. They are talking about vocal cord filler. No clear evidence of malignancy. Patient return to see me in 6 months. 3. Increasing nodular densities right lower lobe. This would likely represent aspiration however given the severity we will repeat CT scans in 6 months. 4. Pleural-based density. Previously mentioned pleural-based lesion is no longer seen or mentioned on this CT. I will ask for direct comparison. 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 6. Right Kidney.had MRI dated March 12, 2023. This showed multiple bilateral renal cysts. Predominant Bosniak 1 and Bosniak 2. - admitted 06/13- DC Summary Reviewed: Aspn ANASTASIA bilat. - IV atb, steroids; O2 weaned off; continuous tube feeds at home was set-up. DC w/ emp Levaquin, Prednisone taper. Details as noted. -- Discharge Diagnoses: Principal Problem: Aspiration pneumonia of both lungs Active Problems: Multiple lung nodules on CT Inadequate energy intake related to decreased ability to consume sufficient energy as evidenced by hx of throat cancer and current total nutrition provided via PEG. Leukocytosis Squamous cell carcinoma of tongue S/P percutaneous endoscopic gastrostomy (PEG) tube placement GERD (gastroesophageal reflux disease) Acute respiratory failure with hypoxia COPD exacerbation Cough with hemoptysis Mass of pleura Brief Summary of Hospital Course: Mr. Amy Sun is a 72 year old male with a past medical history including hypertension, hyperlipidemia, GERD, BPH, DJD, COPD, hepatic steatosis, insomnia, tongue cancer, pharyngeoesophageal dysphagia S/P PEG tube placement and former tobacco abuse who presented to ER with complaints of dyspnea. Patient's temperature was 100.5 on arrival. He was 82% on room air. CT chest did show multifocal pneumonia and suggest aspiration. Patient placed on HCAP antibiotic coverage and admitted to floor for further treatment and care. While hospitalized patients labs and VS were monitored and additional testing was ordered and reviewed. He was weaned off oxygen back to room air and has remained stable. Blood cultures drawn on arrival have remained negative to date and his MRSA screen on arrival was determined negative. Patient was treated with IV antibiotics and systemic steroids which have been transitioned to PO for completion of course for treatment of pneumonia. He was seen by tourist home keeper and recommended for continuous feeds which maybe more beneficial to reduce incidence of aspiration form feedings. learning services coordinator were consulted and discharge arrangements were discussed and patient was set up for discharge with continuous tube feedings but did deny all other needs from social work coordinator post discharge. This morning he is afebrile on room air and his white count is trending down. He states doing well and readiness to go home. He will be discharged today in stable condition with instructions to resume medications as listed below and follow up with his PCP in 1 week. Prescriptions have been sent to patients pharmacy of record except tube feed prescription which will be sent by case management to [facility]. 06/04/23 - admitted [facility] 05/24/0707/26/2023 Discharge summary reviewed: PNA, trace hemoptysis - emp Levaquin, Prednisone. Hypoxia - O2 weaned off. AECOPD, HTN, BPH, GERD, Severe PCM malnutrion, s/p PEG, HLD - fmr Smoker; hx of COPD, as per records; was on Albuterol nebs prev. - hx of Squamous cell CA Tongue, s/p PEG; hx of Dysphagia and Aspn PNA. - 03/21/[address] [facility] [address] Brandon: ASSESSMENT / PLAN: 1. 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 He is due to see Dr. Holder. 2. Weight loss. Found to have pharyngoesophageal dysphagia. He has been referred for a PEG. He saw Dr. Payan and they decided to defer on the peg. He reports that his appetite has improved. He is aware the possible CT findings could represent aspiration. Patient was seen by speech therapy on 03/04/2023. No safe diet was recommended the patient and the understand risks of continued feeding. Will continue to follow. 3. Lung cancer screening/Nodule. He quit smoking in 2008 but prior to that had a 3 ppd for [address] scans performed while hospitalized in February. He again was found to have a trach in the right lower lobe. Overall, the lung was suspected to represent pneumonia. I will repeat CAT scans in 3 months to ensure clearing. 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 5. Right Kidney.had MRI dated March 12, 2023. This showed multiple bilateral renal cysts. Predominant Bosniak 1 and Bosniak 2. Some of these lesions are too Femara to fully characterize but there are no overtly suspicious renal masses. Current Outpatient Medications: Acetaminophen 325 MG tablet, Take 2 tablets by mouth Every 6 hours as needed., Disp: , Rfl: Albuterol (2.5 MG/3ML) 0.083% inhalation solution, Take 3 mL by nebulization every 6 hours as needed for Shortness of Breath., Disp: 360 mL, Rfl: 5 Albuterol 108 (90 Base) MCG/ACT Aero Soln inhaler, Inhale 2 puffs every 4 hours as needed for Shortness of Breath, Respiratory Distress or Wheezing., Disp: 18 g, Rfl: 3 apixaban 5 MG tablet, Take 1 tablet by mouth every 12 hours., Disp: 60 tablet, Rfl: 0 budesonide 0.5 MG/2ML nebulizer suspension, Inhale 2 mL 2 times daily. GARGLE, RINSE MOUTH AFTER USE, Disp: 360 mL, Rfl: 3 FIBER PO, 80ml/hr of Compleat 1.5 continuously for 24 hours. Use 1 carton of Benecalorie daily. Flush with 200ml water four times per day., Disp: , Rfl: fluticasone 50 MCG/ACT Suspension nasal spray, 2 sprays by Nasal route daily., Disp: , Rfl: formoterol (Perforomist) 20 MCG/2ML Nebu Soln nebulizer solution, Take 2 mL by nebulization 2 times daily. GARGLE, RINSE MOUTH AFTER USE, Disp: 360 mL, Rfl: 3 furOSEmide (Lasix) 20 MG tablet, Take 1 tablet by mouth daily., Disp: 90 tablet, Rfl: 1 Ipratropium-albuterol 0.5-2.5 (3) MG/3ML nebulizer solution, Take 3 mL by nebulization every 4 hours as needed for Shortness of Breath, Wheezing, Cough or Breathing Treatment., Disp: 360 mL, Rfl: 11 Lactobacillus Rhamnosus, GG, (culturelle) capsule capsule, Take 1 capsule by mouth daily., Disp: , Rfl: Metoclopramide 5 MG tablet, Take 1 tablet by mouth Twice daily., Disp: , Rfl: Nebulizer Misc, 1 Device by Unknown route every 4 hours as needed., Disp: 1 Each, Rfl: 0 Nutritional Supplements (Boost VHC) Liquid, 52 mL by Enteral route., Disp: , Rfl: ondansetron 4 MG/5ML solution, , Disp: , Rfl: Pantoprazole (Protonix) [address] tablet DR, Take 1 tablet by mouth daily., Disp: 90 tablet, Rfl: 1 predniSONE 10 MG tablet, Take 4 tablets by mouth for 3 days, then take 3 tablets by mouth for 3 days, then take 2 tablets by mouth for 3 days, 1 tablet for 3 days (Patient not taking: Reported on 04/22/2024), Disp: 30 tablet, Rfl: 0 Promethegan 25 MG Suppository suppository, , Disp: , Rfl: Revefenacin (Yupelri) 175 MCG/3ML Solution, Inhale 3 mL daily., Disp: 90 mL, Rfl: 11 Rosuvastatin (Crestor) 5 MG tablet, Take 1 tablet by mouth daily., Disp: 90 tablet, Rfl: 1 Sertraline (Zoloft) 25 MG tablet, Take 1 tablet by mouth daily., Disp: 90 tablet, Rfl: 1 SPACER FOR INHALER PRESCRIPTION, Use with inhaler as directed, Disp: 1 Each, Rfl: 0 SUMAtriptan 50 MG tablet, Take 1 tablet by mouth Every 2 hours as needed., Disp: , Rfl: Tamsulosin HCl 0.4 MG capsule, , Disp: , Rfl: Testosterone 25 MG/2.5GM (1%) Gel gel, Place 2.5 g on skin daily., Disp: 225 g, Rfl: 0 traMADol (Ultram) 50 MG tablet, Take 1 tablet by mouth every 4 hours as needed., Disp: 180 tablet, Rfl: 1 Valsartan (Diovan) 160 MG tablet, Take 1 tablet by mouth daily. Check Blood pressure every day. 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 Chemo/RT with Cisplatin and RT and Ethyol. RT completed 02/28/09. Past Surgical History: Procedure Laterality Date EGD W/ PLACEMENT OR REPLACEMENT PEG 04/04/2023 NECK SURGERY 2008 for cancer INGUINAL HERNIA REPAIR 1988 REMOVAL CATARACT (PEM) Bilateral VASECTOMY Social History Tobacco Use Smoking status: Former Types: Cigarettes Smokeless tobacco: Never Substance Use Topics Alcohol use: No Family History Problem Relation Age of Onset No known problems Mother Heart Disease - Other Father Heart Disease - Other Brother Heart Disease - Other Other Coronary Artery Disease Other No Known Allergies Review of Systems Currently smoking or Hx of smoking -former Oxygen use _3L NOC patient is benefiting from oxygen use. Do you have a CPAP- no DME company- [facility] Most recent CT- 04/01/24 Most recent PFT- 08/22/23 Symptoms include: coughing, Increase in shortness of breath- no Dyspnea upon exertion- no Dyspnea at rest- no Cough- productive- yes Have you had the Covid 19 vaccine- 10/ Do you need a Medication refill? no Pt presents for review of CT Chest Maintenance medication - none Maintenance inhaler- Rescue medication-Albuterol (2.5 MG/3ML) 0.083% inhalation solution Albuterol (2.5 MG/3ML) 0.083% inhalation solution,budesonide 0.5 MG/2ML nebulizer suspension formoterol (Perforomist) 20 MCG/2ML Nebu Soln nebulizer solution,Ipratropium-albuterol 0.5-2.5 (3) MG/3ML nebulizer solution,Revefenacin (Yupelri) 175 MCG/3ML Solution Follow up to review CT Chest (04/01/24) Vitals: 04/22/24 1453 BP: 118/72 Pulse: 81 Resp: 18 SpO2: 92% Weight: 84.1 kg (185 lb 4.8 oz) Height: 1.854 m (6' 1) Vital Signs Reviewed as noted. Physical Exam Vitals and nursing note reviewed. Constitutional: General: He is not in acute distress. Appearance: He is not ill-appearing. HENT: Head: Normocephalic and atraumatic. Right Ear: External ear normal. Left Ear: External ear normal. Nose: Nose normal. Mouth/Throat: Mouth: Mucous membranes are moist. Pharynx: Oropharynx is clear. No oropharyngeal exudate or posterior oropharyngeal erythema. Eyes: General: No scleral icterus. Neck: Vascular: No JVD. Trachea: No tracheal deviation. Cardiovascular: Rate and Rhythm: Normal rate and regular rhythm. Heart sounds: Normal heart sounds. Pulmonary: Effort: Pulmonary effort is normal. No respiratory distress. Breath sounds: No stridor. Examination of the right-lower field reveals rales. Examination of the left-lower field reveals rales. Rales present. No wheezing or rhonchi. Chest: Chest wall: No tenderness. Abdominal: Comments: PEG Genitourinary: Comments: Deferred Musculoskeletal: Cervical back: Neck supple. Right lower leg: No edema. Left lower leg: No edema. Lymphadenopathy: Cervical: No cervical adenopathy. Skin: General: Skin is warm and dry. Coloration: Skin is not jaundiced. Neurological: Mental Status: He is alert and oriented to person, place, and time. Psychiatric: Mood and Affect: Mood normal. Behavior: Behavior normal. I personally reviewed selected chart notes, results, interpreted tests, imaging today before seeing the pt; reviewed and discussed w/ pt, questions answered 04/08/2024 CT Chest w/o contrast reviewed: Previous RLL infiltrates, atelectasis on CT 06/14/23 - Improved, Resolved. COPD w/ ULP Emphysema, RLL mild bronchiectatic changes - Similar to prior. New, small lung nodules, largest LLL 8.7 mm - probably mild inflammation, possibly infection. Otherwise, No new suspicious lung nodules or enlarged lymph nodes. -- take course of antibiotic Cefdinir and Prednisone; ordered ([facility]) --- close ffup CT 3 mos. 07/06/24 - 12/22/23 CTPE ([facility] admission - PE) Impression 1. Exam is positive for pulmonary embolus with filling defect in a right lower lobe posterior segmental pulmonary artery. There is reversal of the normal interventricular septal bowing suggestive of acute right heart strain. 2. Rounded consolidative opacity in the posterior right upper lobe and small cavitary nodule in the superior segment of the right lower lobe are new when compared to 06/14/2023. These are favored to relate to acute infectious/inflammatory nodules/pneumonia with additional patchy areas of infectious/inflammatory infiltrate in the left lower lobe. Short-term follow-up chest CT in 3 months is recommended to exclude developing neoplasm. 3. Right lower lobe bronchiectasis with bronchial wall thickening and areas of mucous plugging consistent with acute bronchitis. Airway secretions are present in the right mainstem bronchus. --- ffup CT 3 mos 03/23/24 - 12/23/23 Duplex examination using B-mode, color and spectral Doppler of extremity veins including responses to compression and other maneuvers; complete bilateral study. Conclusions * No evidence of deep or superficial vein thrombosis in the lower extremities bilaterally. * Hypoechoic structure noted in the left popliteal fossa measuring 2.4 x 2.8 x 1.1 cm. - 12/23/23 Echocardiogram [facility] (PE) Summary 1. Left ventricular systolic function is normal with an ejection fraction by Biplane Method of Discs of 68 %. 2. Right ventricular size and systolic function are normal. 3. The left ventricular diastolic function is normal. 4. No hemodynamically significant valvular disease. 5. There is no pulmonary hypertension, estimated right ventricle systolic pressure is 33 mmHg. - 12/24/23 CXR [facility] Impression Somewhat low lung volumes. Mild interstitial changes. No focal infiltrates. - 08/22/23 6MWT: RT NOTES ... Had a difficult time getting spo2 due to poor circulation. Attempted numerous times on each hand. - 08/22/2023 PFT: - Spirometry - MODERATELY SEVERE OBSTRUCTION, FEV1/FVC 58%, FEV1 2.03L 58% predicted, FVC 3.53L 74% predicted; w/ SMALL AIRWAY flow limitation. - Significant response to bronchodilator: LARGE response during this testing, as may be seen w/ Asthma, RAD (FEV1 increased 15%). - Lung Volume - HYPERINFLATION, INCREASED TLC 12.03L 167% predicted, RV 8.78L 314% predicted - w/ SEVERE AIR TRAPPING. - Diffusing Capacity: MILDLY REDUCED DLCO 66% predicted, DL/VA 107% (which normalizes when adjusted for lung volume, suggesting probably extraparenchymal cause; e.g., body habitus; may also have emphysema). - Flow Volume Loops - Obstructive pattern; No overt upper airway obstruction pattern. - 07/18/23 CT chest w/ c [facility] IMPRESSION: 1. Since 06/14/2023, mild increase in multifocal tree-in-bud opacities, most pronounced within the right lower lobe, and to a lesser degree within the right middle lobe and left lower lobe, compatible with infection/inflammation. The distribution is consistent with aspiration. 2. Persistent distal bronchiolar mucous plugging within the right lower lobe. Dependent secretions are present within the right mainstem bronchus and bronchus intermedius. 3. Unchanged mildly enlarged mediastinal lymph nodes. CT Chest 06/14/2023 IMPRESSION: 1. Increasing nodular densities right lower lobe most likely inflammatory, correlate for pneumonitis/pneumonia. Prominent gas in the esophagus suggesting reflux, question aspiration pneumonia. 2. Enlarging pleural-based density containing small amounts of gas adjacent to the inflammatory density in the right lower lobe noted above. Seen in the posterior inferior medial right chest centered at the T10-T11 level. Question whether this a chronic inflammatory process within the lung or adjacent pleura. There is no adjacent bony erosion or increasing pleural effusion. Has been present previously of variable size, large larger on 05/09/2023 and decreased on 05/24/2023. - 05/24/23 CTPE: RLL mucus plugging; patchy infiltrates BLL; mild ULP emphysematous changes, central bronchial thickening. IMPRESSION: 1. No change in the right lower lung bronchiectasis with mild to moderate mucous plugging. 2. Mild left basilar subpleural subsegmental atelectasis. 3. Mild underlying emphysema. 4. Air-filled mildly distended proximal esophagus could be a sign of achalasia or presbyesophagus, for example. - 05/07/23 Echocardiogram Conclusion The left ventricle is normal size. There is a speckled pattern to the myocardium suggesting infiltrative disease. Mild diastolic dysfunction is present (impaired relaxation pattern). The left ventricular systolic function is normal. The left ventricular ejection fraction is within the normal range. There is normal LV segmental wall motion. LVEF is 65-70%. The right ventricle is normal size. The right ventricular systolic function is normal. Aortic valve is trileaflet. Mild aortic valve sclerosis. Mild tricuspid regurgitation. No pulmonary hypertension. - 02/18/23 CT Chest w/ c [facility] IMPRESSION: 1. Extensive branching jeax-bg-[id number]-type micronodules are present in the right lower lobe and right middle lobe, and to a lesser extent in the left lower lobe. This is stable to slightly progressed from the CT performed on 02/05/2023, and compatible with an infectious or inflammatory bronchiolitis. 2. The newly noted 8mm right lower lobe nodule seen on 02/05/2023 has slightly decreased in size to 6 mm on today's study, and is thus presumably related to the infectious/inflammatory bronchiolitis. The newly noted cluster of 4 to 5 mm nodules seen in the right lower lobe on 02/05/2023 is unchanged on today's examination and is likely infectious or inflammatory in etiology as well. A follow-up chest CT is recommended following treatment for infection, to confirm resolution. 3. Additional incidental findings are detailed above. Immunization Administrations COVID-19 04/20/2020 (69 y.o.) 05/19/2020 (69 y.o.) 12/24/2020 (70 y.o.) 10/11/2022 (72 y.o.) INFLUENZA 01/13/2007 (56 y.o.) 01/26/2008 (57 y.o.) 11/17/2013 (63 y.o.) 11/17/2015 (65 y.o.) 10/23/2016 (66 y.o.) 10/30/2017 (67 y.o.) 11/16/2018 (68 y.o.) 11/04/2019 (69 y.o.) 12/01/2020 (70 y.o.) MEASLES, MUMPS, RUBELLA (MMR) 06/22/2013 (62 y.o.) Zoster 10/30/2017 (67 y.o.) 12/29/2017 (67 y.o.) Return in about 3 months (around 07/23/2024). CT 07/06/24 FOLLOW-UP Patient was advised to call with any questions or concerns. If symptoms worsen or fail to improve patient was advised to call for follow up in our office and/or PCP, or go to the Emergency Dept. Benefits, Risks, Contraindications, and Complications of recommended treatments were explained (and to call if prescriptions are not feasible); and the patient stated understanding and agreement to proceed with plan. 04/22/2024: I spent 35 mins: reviewed selected chart notes, results, interpreted tests, imaging today before seeing the pt; interviewing and examining pt; reviewed and discussed w/ pt, questions answered; counselling/educating pt/family/caregiver; ordering meds/tests as appropriate; documenting clinical information in the chart. Some Elements copied from previous notes. I have updated where appropriate, and all reflect current medical decision making from today's encounter. Note: This dictation was generated using voice recognition software. Please excuse any typographical, grammatical or spelling errors that may have occurred using the system Note to patient: The Century Cures Act makes medical notes like these available to patients in the interest of transparency. However, be advised this is a medical document. It is intended as [id number] communication. It is written in medical language and may contain abbreviations or verbiage that are unfamiliar. It may appear blunt or direct. Medical documents are intended to carry relevant information, facts as evident, and the clinical opinion of the practitioner. Yobani Bojorquez MD, MPH, [facility] Pulmonary/Critical Care Medicine [facility] 04/22/2024 documented in this encounter [facility] 04-01-2024 Note Education (NUTRMA) ---- AMY SUN ([id number]) 1950 M Date Time Provider Department 04/01/24 3:30 PM ZOYA HILLMAN Reason for Visit: Nutrition Telephone [2014] Primary Visit Diagnosis: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) [C01] Other Visit Diagnoses:History of tongue cancer [Z85.810] Severe protein-calorie malnutrition (HCC) [E43] During your visit today, we recorded the following information about you: Allergies As of Date: 04/01/2024 (No Known Allergies) Date Reviewed: 04/01/2024 Reviewed by: Zoya Hillman RD - Fully Assessed Prescriptions as of 04/01/2024 - apixaban (ELIQUIS) 5 mg tab(s) Take 5 mg by mouth two times a day. - formoterol fumarate (PERFOROMIST) 20 mcg/2 mL nebu Inhale 20 mcg as instructed. - revefenacin (YUPELRI) 175 mcg/3 mL solution for nebulization Inhale 175 mcg as instructed once daily. - tamsulosin (FLOMAX) 0.4 mg Take 0.4 mg by mouth once daily. - famotidine (PEPCID) 20 mg tablet Take 20 mg by mouth. - budesonide (PULMICORT) 0.5 mg/2 mL nebulizer solution Inhale 0.5 mg as instructed. - nut tx, lact-reduced, iron (BOOST [facility]) 0.09-2.25 gram-kcal/mL liqd 52 mL by FEEDING TUBE route continuous. Adminster with infinity feeding pump. Flush with an additional 33oz of water daily (divided). - iv contrast (will be provided with radiology test) CT Chest W -Inject, intravenously, once for 1 dose.No IV access, insert saline lock prior to the beginning of sedation, infusion, injection of imaging exam. Discontinue saline lock post exam. If Pt. has a central line or IVAD, may access for administration according to line specific nursing protocol. Once exam is complete flush line and de-access according to line specific nursing protocol in the CT contrast administration guidelines link. - iv contrast (will be provided with radiology test) CT ABD/PEL -Inject, intravenously, once for 1 dose.No IV access, insert saline lock prior to the beginning of sedation, infusion, injection of imaging exam. Discontinue saline lock post exam. If Pt. has a central line or IVAD, may access for administration according to line specific nursing protocol. Once exam is complete flush line and de-access according to line specific nursing protocol in the CT contrast administration guidelines link. - enteric contrast (will be provided with radiology test) For CT ABD/PEL W IVCON Routine order Administer, As Directed One Time Only, via Oral, Rectal, both Oral and Rectal, Enteric Tube, Stoma or Indwelling Catheter, Enteric Contrast as designated per enteric contrast guidelines - nutritional supplement-fiber (COMPLEAT 1.5) 0.07 gram-1.5 kcal/mL liqd 80ml/hr of Compleat 1.5 continuously for 24 hours. Use 1 carton of Benecalorie daily. Flush with 200ml water four times per day. - sertraline (ZOLOFT) 25 mg tablet Take 1 tablet by mouth once daily. - furosemide (LASIX) 20 mg tablet Take 20 mg by mouth once daily. - sulindac (CLINORIL) 150 mg tablet - pilocarpine (ISOPTO CARPINE) 2 % ophthalmic solution 1 Drop. - rosuvastatin (CRESTOR) 5 mg tablet Take 5 mg by mouth once daily. - pantoprazole DR (PROTONIX) 40 mg tablet - propylene glycol/peg 400 (BLINK TEARS LUBRICATING) Eye Drops Use 1 Drop in both eyes as needed. - traMADol (ULTRAM) 50 mg tablet Take 1 tablet by mouth twice daily. - testosterone (ANDROGEL) 50 mg/5 g (1%) gel Apply 0.5 Tubes as directed once daily. Encounter Status:Closed by ZOYA HILLMAN on 04/01/24 [facility] 04-01-2024 Note HNO ID: [id number] Author: ZOYA HILLMAN RD Service: ? Author Type: Registered Dietitian Type: Progress Notes Filed: 04/01/2024 15:46 Note Text: Oncology Nutrition Therapy Reassessment I have communicated my name and active licensure. The patient's identity and physical location were verified at the time of this visit. Either the patient or their legal technical services representative has been informed of the risks and benefits of -- and alternatives to -- treatment through a remote evaluation and consents to proceed with the evaluation remotely. RECOMMENDED MALNUTRITION DIAGNOSIS: SEVERE PROTEIN-CALORIE MALNUTRITION In the context of Chronic Illness or Injury based on: Unintentional Weight Loss: >7.5% in 3 months Insufficient Energy Intake: Less than 75% energy intake compared to estimated needs for greater than or equal to 1 month Nutrition Diagnosis: Swallowing difficulty, related to, dysphagia 2/2 head and neck cancer, as evidenced by PEG placement and diagnosis. Nutrition Intervention: -Use of PEG feeding tube for 100% nutrition needs - Increase water intake to a total of 1 liter in addition to formula per day. -Use salt and soda mouth rinse - utilize good technique for medication administration via PEG Nutrition Monitoring AND Evaluation: EN intake Wt status Biochemical Markers Skin integrity Plan of care Patient Condition: Pt presents for nutrition counseling for history of malignant neoplasm of base of tongue with new onset dysphagia and Feeding tube placement 2/2 cancer. Pt had original PEG placed on 04/07/[address] Godoy. 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 with rotary filter operator: 0663-6448 calories (20-25 wen/kg) 12 hours per day - cyclical via pump Recommended use of Compleat 1.4 at 104ml/hr x 12 hours Fluids - adequate EN: Water flush: 25oz PO: 6 popsicles throughout day Readiness to Learn: Cognitive ability: Alert and oriented Motivation to learn: Eager Family support: High - Very involved in pt care Instruction provided to: Patient and Spouse Patient learns best by: Multiple Methods Factors affecting learning: None Physical limitations affecting learning: None Anthropometrics: HEIGHT/WEIGHT/BSA Height BSA (m2) Weight 01/07/2020 2.3 m2 223 lb 6.4 oz 11/23/2020 2.31 m2 226 lb 1.6 oz 02/05/2021 188 cm (6' 2.02) 2.32 m2 226 lb 6.4 oz 05/15/2021 188 cm (6' 2.02) 2.23 m2 210 lb 8 oz 11/12/2021 2.23 m2 209 lb 6.4 oz 12/13/2021 2.2 m2 203 lb 11.2 oz 06/10/2022 2.19 m2 202 lb 14.4 oz 11/27/2022 188 cm (6' 2.02) 2.1 m2 186 lb 8 oz 12/04/2022 2.12 m2 189 lb 02/05/2023 188 cm (6' 2.02) 2.05 m2 177 lb 14.4 oz 02/14/2023 2.03 m2 174 lb 11.2 oz 02/28/2023 188 cm (6' 2.02) 2.06 m2 178 lb 9.6 oz 03/21/2023 188 cm (6' 2.02) 2.03 m2 174 lb 9.7 oz 05/29/2023 2.01 m2 170 lb 13.7 oz 06/04/2023 1.96 m2 162 lb 11.2 oz 06/23/2023 188 cm (6' 2.02) 1.94 m2 158 lb 4.6 oz 07/08/2023 188 cm (6' 2.02) 1.9 m2 152 lb 6.4 oz 07/23/2023 188 cm (6' 2.02) 1.98 m2 164 lb 14.5 oz 01/26/2024 2.03 m2 173 lb 11.6 oz Estimated body mass index is 22.3 kg/m? as calculated from the following: Height as of 07/23/23: 188 cm (6' 2.02). Weight as of 01/26/24: 78.8 kg (173 lb 11.6 oz). Resting Metabolic Rate: 1616 Dosing Weight: 77.5 kg Estimated kilocalorie needs: 8066-7945 kilocalories determined by 35-40 kcal/kg Estimated protein needs: 93-116 grams determined by 1.2-1.5 g/kg Dosing weight Estimated fluid needs: 2706-6527 milliliters based on 1 mL per kcal Allergies: Patient has no known allergies. Medications: Current Outpatient Medications Medication Sig Dispense Refill apixaban (ELIQUIS) 5 mg tab(s) Take 5 mg by mouth two times a day. formoterol fumarate (PERFOROMIST) 20 mcg/2 mL nebu Inhale 20 mcg as instructed. revefenacin (YUPELRI) 175 mcg/3 mL solution for nebulization Inhale 175 mcg as instructed once daily. tamsulosin (FLOMAX) 0.4 mg Take 0.4 mg by mouth once daily. famotidine (PEPCID) 20 mg tablet Take 20 mg by mouth. budesonide (PULMICORT) 0.5 mg/2 mL nebulizer solution Inhale 0.5 mg as instructed. nut tx, lact-reduced, iron (BOOST [facility]) 0.09-2.25 gram-kcal/mL liqd 52 mL by FEEDING TUBE route continuous. Adminster with infinity feeding pump. Flush with an additional 33oz of water daily (divided). 98751 mL 11 iv contrast (will be provided with radiology test) CT Chest W -Inject, intravenously, once for 1 dose.No IV access, insert saline lock prior to the beginning of sedation, infusion, injection of imaging exam. Discontinue saline lock post exam. If Pt. has a central line or IVAD, may access for administration according to line specific nursing protocol. Once exam is complete flush line and de-access according to line specific nursing protocol in the CT contrast administration guidelin (more content not included)... [facility] 04-01-2024 History of Present illness Narrative Oncology Nutrition Therapy Reassessment I have communicated my name and active licensure. The patient's identity and physical location were verified at the time of this visit. Either the patient or their legal technical services representative has been informed of the risks and benefits of -- and alternatives to -- treatment through a remote evaluation and consents to proceed with the evaluation remotely. RECOMMENDED MALNUTRITION DIAGNOSIS: SEVERE PROTEIN-CALORIE MALNUTRITION In the context of Chronic Illness or Injury based on: Unintentional Weight Loss: >7.5% in 3 months Insufficient Energy Intake: Less than 75% energy intake compared to estimated needs for greater than or equal to 1 month Nutrition Diagnosis: Swallowing difficulty, related to, dysphagia 2/2 head and neck cancer, as evidenced by PEG placement and diagnosis. Nutrition Intervention: -Use of PEG feeding tube for 100% nutrition needs - Increase water intake to a total of 1 liter in addition to formula per day. -Use salt and soda mouth rinse - utilize good technique for medication administration via PEG Nutrition Monitoring & Evaluation: EN intake Wt status Biochemical Markers Skin integrity Plan of care Patient Condition: Pt presents for nutrition counseling for history of malignant neoplasm of base of tongue with new onset dysphagia and Feeding tube placement 2/2 cancer. Pt had original PEG placed on 04/07/[address] Godoy. 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 with rotary filter operator: 4228-9641 calories (20-25 wen/kg) 12 hours per day - cyclical via pump Recommended use of Compleat 1.4 at 104ml/hr x 12 hours Fluids - adequate EN: Water flush: 25oz PO: 6 popsicles throughout day Readiness to Learn: Cognitive ability: Alert and oriented Motivation to learn: Eager Family support: High - Very involved in pt care Instruction provided to: Patient and Spouse Patient learns best by: Multiple Methods Factors affecting learning: None Physical limitations affecting learning: None Anthropometrics: HEIGHT/WEIGHT/BSA Height BSA (m2) Weight 01/07/2020 2.3 m2 223 lb 6.4 oz 11/23/2020 2.31 m2 226 lb 1.6 oz 02/05/2021 188 cm (6' 2.02) 2.32 m2 226 lb 6.4 oz 05/15/2021 188 cm (6' 2.02) 2.23 m2 210 lb 8 oz 11/12/2021 2.23 m2 209 lb 6.4 oz 12/13/2021 2.2 m2 203 lb 11.2 oz 06/10/2022 2.19 m2 202 lb 14.4 oz 11/27/2022 188 cm (6' 2.02) 2.1 m2 186 lb 8 oz 12/04/2022 2.12 m2 189 lb 02/05/2023 188 cm (6' 2.02) 2.05 m2 177 lb 14.4 oz 02/14/2023 2.03 m2 174 lb 11.2 oz 02/28/2023 188 cm (6' 2.02) 2.06 m2 178 lb 9.6 oz 03/21/2023 188 cm (6' 2.02) 2.03 m2 174 lb 9.7 oz 05/29/2023 2.01 m2 170 lb 13.7 oz 06/04/2023 1.96 m2 162 lb 11.2 oz 06/23/2023 188 cm (6' 2.02) 1.94 m2 158 lb 4.6 oz 07/08/2023 188 cm (6' 2.02) 1.9 m2 152 lb 6.4 oz 07/23/2023 188 cm (6' 2.02) 1.98 m2 164 lb 14.5 oz 01/26/2024 2.03 m2 173 lb 11.6 oz Estimated body mass index is 22.3 kg/m as calculated from the following: Height as of 07/23/23: 188 cm (6' 2.02). Weight as of 01/26/24: 78.8 kg (173 lb 11.6 oz). Resting Metabolic Rate: 1616 Dosing Weight: 77.5 kg Estimated kilocalorie needs: 0629-5842 kilocalories determined by 35-40 kcal/kg Estimated protein needs: 93-116 grams determined by 1.2-1.5 g/kg Dosing weight Estimated fluid needs: 2635-7429 milliliters based on 1 mL per kcal Allergies: Patient has no known allergies. Medications: Current Outpatient Medications Medication Sig Dispense Refill apixaban (ELIQUIS) 5 mg tab(s) Take 5 mg by mouth two times a day. formoterol fumarate (PERFOROMIST) 20 mcg/2 mL nebu Inhale 20 mcg as instructed. revefenacin (YUPELRI) 175 mcg/3 mL solution for nebulization Inhale 175 mcg as instructed once daily. tamsulosin (FLOMAX) 0.4 mg Take 0.4 mg by mouth once daily. famotidine (PEPCID) 20 mg tablet Take 20 mg by mouth. budesonide (PULMICORT) 0.5 mg/2 mL nebulizer solution Inhale 0.5 mg as instructed. nut tx, lact-reduced, iron (BOOST C) 0.09-2.25 gram-kcal/mL liqd 52 mL by FEEDING TUBE route continuous. Adminster with infinity feeding pump. Flush with an additional 33oz of water daily (divided). 24274 mL 11 iv contrast (will be provided with radiology test) CT Chest W -Inject, intravenously, once for 1 dose.No IV access, insert saline lock prior to the beginning of sedation, infusion, injection of imaging exam. Discontinue saline lock post exam. If Pt. has a central line or IVAD, may access for administration according to line specific nursing protocol. Once exam is complete flush line and de-access according to line specific nursing protocol in the CT contrast administration guidelines link. (Patient not taking: Reported on 01/26/2024) 1 Each 0 iv contrast (will be provided with radiology test) CT ABD/PEL -Inject, intravenously, once for 1 dose.No IV access, insert saline lock prior to the beginning of sedation, infusion, injection of imaging exam. Discontinue saline lock post exam. If Pt. has a central line or IVAD, may access for administration according to line specific nursing protocol. Once exam is complete flush line and de-access according to line specific nursing protocol in the CT contrast administration guidelines link. (Patient not taking: Reported on 01/26/2024) 1 Each 0 enteric contrast (will be provided with radiology test) For CT ABD/PEL W IVCON Routine order Administer, As Directed One Time Only, via Oral, Rectal, both Oral and Rectal, Enteric Tube, Stoma or Indwelling Catheter, Enteric Contrast as designated per enteric contrast guidelines (Patient not taking: Reported on 01/26/2024) 1 Each 0 nutritional supplement-fiber (COMPLEAT 1.5) 0.07 gram-1.5 kcal/mL liqd 80ml/hr of Compleat 1.5 continuously for 24 hours. Use 1 carton of Benecalorie daily. Flush with 200ml water four times per day. 25693 mL 11 sertraline (ZOLOFT) 25 mg tablet Take 1 tablet by mouth once daily. furosemide (LASIX) 20 mg tablet Take 20 mg by mouth once daily. (Patient not taking: Reported on 01/26/2024) sulindac (CLINORIL) 150 mg tablet pilocarpine (ISOPTO CARPINE) 2 % ophthalmic solution 1 Drop. rosuvastatin (CRESTOR) 5 mg tablet Take 5 mg by mouth once daily. pantoprazole DR (PROTONIX) 40 mg tablet propylene glycol/peg 400 (BLINK TEARS LUBRICATING) Eye Drops Use 1 Drop in both eyes as needed. traMADol (ULTRAM) 50 mg tablet Take 1 tablet by mouth twice daily. testosterone (ANDROGEL) 50 mg/5 g (1%) gel Apply 0.5 Tubes as directed once daily. No current facility-administered medications for this visit. Need for Follow up: 3 mo Referred/Supervised by: Dr. Nitin LEMA Billing Type: Re-assess/15 min 2 units Billed Time: 30 minutes Signed by: Zoya Hillman RD, SHARRI documented in this encounter [facility] 03-18-2024 Evaluation + Plan note Associated Problem(s): S/P percutaneous endoscopic gastrostomy (PEG) tube placement (HCC) PEG due to tongue cancer. Follows with oncology, travel registered nurse pacu at [facility]. Dr. Jaimes for GI. asking about blended foods through PEG occasionally (single meal, eg dinner). Recommended to check with travel registered nurse pacu, but should be fine. Discussed that he's not likely to get enough calories through blended foods; understands, this would only be occasional. [facility] 03-18-2024 Miscellaneous Notes Associated Problem(s): S/P percutaneous endoscopic gastrostomy (PEG) tube placement (HCC) PEG due to tongue cancer. Follows with oncology, travel registered nurse pacu at [facility]. Dr. Jaimes for GI. asking about blended foods through PEG occasionally (single meal, eg dinner). Recommended to check with travel registered nurse pacu, but should be fine. Discussed that he's not likely to get enough calories through blended foods; understands, this would only be occasional. Associated Problem(s): Left inguinal hernia Chronic and was having worsening in frequency of symptomatic pressure and discomfort but easily reducible. Referred to gen surg, Dr. Flores, and discussed elective surgery. However, patient recently had PE and started on Eliquis. Eliquis would need to be held for 48 hrs for surgery. Would not recommend this for the first 6 months of treatment (started 12/2023), so surgery is deferred until then. ER precautions discussed, worsening pain, not reducible, discoloration, go to ER. Associated Problem(s): Edema of both lower extremities Intermittent edema. Using prn daily lasix 20 mg, recently required 3 days, then edema resolved. Associated Problem(s): Anxiety and depression Mood is much improved on sertraline 50 mg daily. Continue current dose and monitor. documented in this encounter [facility] 03-18-2024 Evaluation + Plan note Associated Problem(s): Left inguinal hernia Chronic and was having worsening in frequency of symptomatic pressure and discomfort but easily reducible. Referred to gen surg, Dr. Flores, and discussed elective surgery. However, patient recently had PE and started on Eliquis. Eliquis would need to be held for 48 hrs for surgery. Would not recommend this for the first 6 months of treatment (started 12/2023), so surgery is deferred until then. ER precautions discussed, worsening pain, not reducible, discoloration, go to ER. [facility] 03-18-2024 Evaluation + Plan note Associated Problem(s): Edema of both lower extremities Intermittent edema. Using prn daily lasix 20 mg, recently required 3 days, then edema resolved. [facility] 03-18-2024 Evaluation + Plan note Associated Problem(s): Anxiety and depression Mood is much improved on sertraline 50 mg daily. Continue current dose and monitor. [facility] 03-17-2024 Instructions Ulices Clark DO - 03/17/2024 9:52 AM EST Ammonium lactate lotion for legs documented in this encounter [facility] 03-17-2024 Note Assessment/Plan: Anxiety and depression Mood is much improved on sertraline 50 mg daily. Continue current dose and monitor. Edema of both lower extremities Intermittent edema. Using prn daily lasix 20 mg, recently required 3 days, then edema resolved. Left inguinal hernia Chronic and was having worsening in frequency of symptomatic pressure and discomfort but easily reducible. Referred to gen surg, Dr. Flores, and discussed elective surgery. However, patient recently had PE and started on Eliquis. Eliquis would need to be held for 48 hrs for surgery. Would not recommend this for the first 6 months of treatment (started 12/2023), so surgery is deferred until then. ER precautions discussed, worsening pain, not reducible, discoloration, go to ER. S/P percutaneous endoscopic gastrostomy (PEG) tube placement (HCC) PEG due to tongue cancer. Follows with oncology, travel registered nurse pacu at [facility]. Dr. Jaimes for GI. asking about blended foods through PEG occasionally (single meal, eg dinner). Recommended to check with travel registered nurse pacu, but should be fine. Discussed that he's not likely to get enough calories through blended foods; understands, this would only be occasional. Subjective: Amy Sun is a 73 y.o. male Chief Complaint Patient presents with URI Fever Patient reports for follow-up and concern for recent fever. He is accompanied by his , Christa. Patient's reports he had been experiencing some nasal congestion, rhinorrhea, temperature in the 99's for a few days, but today all his symptoms have resolved. He has been gaining weight, feeling healthier and stronger. Miriam reports he had a brief episode of bilateral ankle swelling for which she gave him Lasix 20 mg once daily for 3 days and the swelling resolved. He met with a general surgeon for elective left inguinal hernia repair, but due to recent PE and starting on Eliquis it was decided to defer surgery for now. Today patient reports not having symptoms from his hernia for a while. The following portions of the patient's history were reviewed and updated as appropriate: allergies, current medications, past family history, past medical history, past social history, past surgical history and problem list. Review of Systems Objective: PACU Vitals 03/17/24 0842 BP: 137/79 Pulse: (!) 57 Resp: 18 Temp: 99 degrees F (37.2 degrees C) SpO2: 93% Physical Exam Constitutional: General: He is not in acute distress. Appearance: Normal appearance. He is not ill-appearing, toxic-appearing or diaphoretic. HENT: Head: Normocephalic and atraumatic. Mouth/Throat: Mouth: Mucous membranes are moist. Eyes: General: No scleral icterus. Cardiovascular: Rate and Rhythm: Normal rate and regular rhythm. Heart sounds: Normal heart sounds. Pulmonary: Effort: Pulmonary effort is normal. No respiratory distress. Breath sounds: No wheezing or rales. Abdominal: General: Abdomen is flat. Palpations: Abdomen is soft. Skin: General: Skin is warm and dry. Coloration: Skin is not jaundiced or pale. Neurological: Mental Status: He is alert. Mental status is at baseline. Psychiatric: Mood and Affect: Mood normal. For any new medications prescribed today, patient was educated about indications for the medication, how to take the medication and potential side effects of the medications. Ulices Clark DO AUTHENTICATED BY ULICES CLARK, ON 03/18/2024 01:11:03 [facility] 03-17-2024 History of Present illness Narrative Assessment/Plan: Anxiety and depression Mood is much improved on sertraline 50 mg daily. Continue current dose and monitor. Edema of both lower extremities Intermittent edema. Using prn daily lasix 20 mg, recently required 3 days, then edema resolved. Left inguinal hernia Chronic and was having worsening in frequency of symptomatic pressure and discomfort but easily reducible. Referred to gen surg, Dr. Flores, and discussed elective surgery. However, patient recently had PE and started on Eliquis. Eliquis would need to be held for 48 hrs for surgery. Would not recommend this for the first 6 months of treatment (started 12/2023), so surgery is deferred until then. ER precautions discussed, worsening pain, not reducible, discoloration, go to ER. S/P percutaneous endoscopic gastrostomy (PEG) tube placement (HCC) PEG due to tongue cancer. Follows with oncology, travel registered nurse pacu at [facility]. Dr. Jaimes for GI. asking about blended foods through PEG occasionally (single meal, eg dinner). Recommended to check with travel registered nurse pacu, but should be fine. Discussed that he's not likely to get enough calories through blended foods; understands, this would only be occasional. Subjective: Amy Sun is a 73 y.o. male Chief Complaint Patient presents with URI Fever Patient reports for follow-up and concern for recent fever. He is accompanied by his , Christa. Patient's reports he had been experiencing some nasal congestion, rhinorrhea, temperature in the 99's for a few days, but today all his symptoms have resolved. He has been gaining weight, feeling healthier and stronger. Miriam reports he had a brief episode of bilateral ankle swelling for which she gave him Lasix 20 mg once daily for 3 days and the swelling resolved. He met with a general surgeon for elective left inguinal hernia repair, but due to recent PE and starting on Eliquis it was decided to defer surgery for now. Today patient reports not having symptoms from his hernia for a while. The following portions of the patient's history were reviewed and updated as appropriate: allergies, current medications, past family history, past medical history, past social history, past surgical history and problem list. Review of Systems Objective: PACU Vitals 03/17/24 0842 BP: 137/79 Pulse: (!) 57 Resp: 18 Temp: 99 F (37.2 C) SpO2: 93% Physical Exam Constitutional: General: He is not in acute distress. Appearance: Normal appearance. He is not ill-appearing, toxic-appearing or diaphoretic. HENT: Head: Normocephalic and atraumatic. Mouth/Throat: Mouth: Mucous membranes are moist. Eyes: General: No scleral icterus. Cardiovascular: Rate and Rhythm: Normal rate and regular rhythm. Heart sounds: Normal heart sounds. Pulmonary: Effort: Pulmonary effort is normal. No respiratory distress. Breath sounds: No wheezing or rales. Abdominal: General: Abdomen is flat. Palpations: Abdomen is soft. Skin: General: Skin is warm and dry. Coloration: Skin is not jaundiced or pale. Neurological: Mental Status: He is alert. Mental status is at baseline. Psychiatric: Mood and Affect: Mood normal. For any new medications prescribed today, patient was educated about indications for the medication, how to take the medication and potential side effects of the medications. Ulices Clark DO documented in this encounter [facility] 02-24-2024 Telephone encounter Note CALL PLACED TO CHRISTA. INFORMED THAT MEDICATION SENT TO [facility] AND TO [facility]. VERBALIZED UNDERSTANDING. [facility] 02-24-2024 Miscellaneous Notes CALL PLACED TO CHRISTA. INFORMED THAT MEDICATION SENT TO [facility] AND TO [facility]. VERBALIZED UNDERSTANDING. 30 day prescription sent to [facility]. [facility] Addended by: ULICES CLARK on: 02/24/2024 04:07 PM Modules accepted: Orders CALLING IN. REPORTS THAT PT HAS BEEN OUT OF ELIQUIS FOR 3 DAYS AND THEY ARE NEEDING A #30 DAY SUPPLY SENT IN TO [facility] AND ALSO NEEDING A #90 DAY SUPPLY SENT TO [facility]. PRESCRIPTION WAS SENT TO [facility] BUT IT WAS FOR #30 DAYS. LAST OV 01/13/24. NEXT OV SCHEDULED FOR 03/23/24. documented in this encounter [facility] 02-24-2024 Telephone encounter Note 30 day prescription sent to [facility]. [facility] 02-24-2024 Note Addended by: ULICES CLARK on: 02/24/2024 04:07 PM Modules accepted: Orders [facility] 02-24-2024 Telephone encounter Note CALLING IN. REPORTS THAT PT HAS BEEN OUT OF ELIQUIS FOR 3 DAYS AND THEY ARE NEEDING A #30 DAY SUPPLY SENT IN TO [facility] AND ALSO NEEDING A #90 DAY SUPPLY SENT TO [facility]. PRESCRIPTION WAS SENT TO [facility] BUT IT WAS FOR #30 DAYS. LAST OV 01/13/24. NEXT OV SCHEDULED FOR 03/23/24. [facility] 02-23-2024 Telephone encounter Note Patients walked into th office and said the patient has no medication for today please send 30 day to [facility] and then [facility]. [facility] 02-23-2024 Miscellaneous Notes Patients walked into th office and said the patient has no medication for today please send 30 day to [facility] and then [facility]. Last OV 01/13/24. Next OV 03/23/24. documented in this encounter [facility] 02-23-2024 Telephone encounter Note Last OV 01/13/24. Next OV 03/23/24. [facility] 01-27-2024 Telephone encounter Note Called and spoke with Christa, she is aware and denies any questions at this time. AA [facility] 01-27-2024 Miscellaneous Notes Called and spoke with Christa, she is aware and denies any questions at this time. AA ----- Message from Sushma Brandon sent at 01/26/2024 1:14 PM EST ----- Call patient no additional studies required. documented in this encounter [facility] 01-27-2024 Telephone encounter Note ----- Message from Sushma Brandon sent at 01/26/2024 1:14 PM EST ----- Call patient no additional studies required. [facility] 01-26-2024 Note HNO ID: [id number] Author: SUSHMA BRANDON, ? Service: ? Author Type: Physician Type: Progress Notes Filed: 01/26/2024 11:31 Note Text: HISTORY OF PRESENT ILLNESS: Mr. 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 Patient that time was treated with chemoradiation therapy. He completed radiation therapy in February 2009. He was treated on the care Dr. Lennon. He was last seen by him on September 2017. CURRENT STATUS: Since her last visit, patient reports that he has been seen by Dr. Rivas and they decided not to have the vocal cord fillers placed due to inability to speak. He continues to use his feeding tube. He now returns ECOG PERFORMANCE STATUS: 0- Fully active, able to carry on all pre-disease performance w/o restriction. Social History Tobacco Use Smoking status: Former Current packs/day: 0.00 Average packs/day: 2.0 packs/day for 46.0 years (92.0 ttl pk-yrs) Types: Cigarettes Start date: 09/19/1962 Quit date: 09/19/2008 Years since quittin.3 Smokeless tobacco: Never Tobacco comments: Quit Vaping Use Vaping status: Never Used Substance Use Topics Alcohol use: No Drug use: No FAMILY HISTORY Problem Relation Age of Onset Cataract Mother other (Dementia) Mother Coronary Artery Disease Father Heart Father Cataract Father Glaucoma Father Detached Retina No Family History Macular Degen No Family History Blindness No Family History Amblyopia No Family History Strabismus No Family History PAST MEDICAL HISTORY Diagnosis Date Epiretinal membrane (ERM) of left eye Erythrocytosis 09/15/2014 Hyperlipemia 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) 12/02/2008 Nausea with vomiting PCO (posterior capsular opacification), left Pseudophakia, both eyes Secondary and unspecified malignant neoplasm of lymph nodes of head, face, 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 HEAD (Incl. face): Normocephalic; Atraumatic. EYES: Pupils are reactive. No scleral icterus. HEENT: No oral exudates. NECK: No thyromegaly. No JVD. Evidence of neck surgery. HEMATOLOGY/LYMPHATIC: No petechiae or purpura. No tender or palpable lymph nodes in the cervical, supraclavicular, axillary or inguinal areas. RESPIRATORY: Lungs are clear to auscultation. CARDIOVASCULAR: Regular rate and rhythm. 2 + radial pulse. ABDOMEN: Non-tender, soft, positive bowel sounds. BACK/SPINE: No kyphosis or scoliosis. Non tender to palpation. MUSCULOSKELETAL: No tenderness or swelling, normal range of motion without obvious weakness. EXTREMITIES: No cyanosis, clubbing INTEGUMENTARY: No rashes or masses. NEURO: No sensory or motor deficits, normal cerebellar function, normal gait, cranial nerves intact. PSYCHIATRIC: Pleasant affect. No signs of agitation. LABS: Latest Reference Range AND Units 01/22/24 12:51 Sodium, Whole Blood (iSTAT) 138 - 146 mmol/L 147 (H) Potassium, Whole Blood (iSTAT) 3.5 - 4.9 mmol/L 3.6 Chloride, Whole Blood (iSTAT) 98 - 109 mmol/L 100 TCO2, Whole Blood (iSTAT) 24 - 29 mmol/L 34 (H) BUN, Whole Blood (iSTAT) 8 - 26 mg/dL 33 (H) Creatinine, Whole Blood (iSTAT) 0.60 - 1.30 mg/dL 0.80 Glucose, Whole Blood (iSTAT) 70 - 105 mg/dL 104 Protein, Total 6.3 - 8.0 g/dL 8.0 Ionized Calcium, WB (iSTAT) 1.12 - 1.32 mmol/L 1.22 Albumin 3.9 - 4.9 g/dL 4.3 Bilirubin, Total 0.2 - 1.3 mg/dL 0.5 Bilirubin, Direct <0.2 mg/dL <0.2 Alkaline Phosphatase 38 - 113 U/L 114 (H) ALT 10 - 54 U/L 21 AST 14 - 40 U/L 28 Anion Gap, Whole Blood (iSTAT) 0 - 15 mmol/L 13 WBC 3.70 - 11.00 k/uL 5.78 RBC 4.20 - 6.00 m/uL 4.41 Hemoglobin 13.0 - 17.0 g/dL 13.5 Hematocrit 39.0 - 51.0 % 42.6 Platelet Count 150 - 400 k/uL 162 MCV 80.0 - 100.0 fL 96.6 MCH 26.0 - 34.0 pg 30.6 MCHC 30.5 - 36.0 g/dL 31.7 MPV 9.0 - 12.7 fL 11.0 RDW-CV 11.5 - 15.0 % 14.8 DTYPE Auto Neut% % 78.4 Abs Neut (ANC) 1.45 - 7.50 k/uL 4.53 Lymph% % 9.7 Abs Lymph 1.00 - 4.00 k/uL 0.56 (L) Gaston% % 9.3 Abs Gaston <0.87 k/uL 0.54 Eosin% % 1.9 Abs Eosin <0.46 k/uL 0.11 Baso% % 0.5 Abs Baso <0.11 k/uL 0.03 Immature Gran % % 0.2 IMMATURE GRANS (ABS) <0.10 k/uL <0.03 NRBC /100 WBC 0.0 Absolute nRBC <0.01 k/uL <0.01 (H): Data is abnormally high (L): Data is abnormally low RADIOLOGY: CHEST CT WITH CONTRAST -DATE OF EXAM: Jan 22 2024 2:41PM RESULT: Limitations: None. Lines, tubes, and devices: None. Lung parenchyma , airways, and pleural space: A small amount of retained secretions within the trachea and right mainstem bronchus are noted. Persistent diffuse bronchial wall thickening and mucous plugging is again appreciated, most prominent within the right lower lobe. Bilateral areas of tree-in-bud opacities, most pr (more content not included)... [facility] 01-26-2024 History of Present illness Narrative HISTORY OF PRESENT ILLNESS: Mr. 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 Patient that time was treated with chemoradiation therapy. He completed radiation therapy in February 2009. He was treated on the care Dr. Lennon. He was last seen by him on September 2017. CURRENT STATUS: Since her last visit, patient reports that he has been seen by Dr. Rivas and they decided not to have the vocal cord fillers placed due to inability to speak. He continues to use his feeding tube. He now returns ECOG PERFORMANCE STATUS: 0- Fully active, able to carry on all pre-disease performance w/o restriction. Social History Tobacco Use Smoking status: Former Current packs/day: 0.00 Average packs/day: 2.0 packs/day for 46.0 years (92.0 ttl pk-yrs) Types: Cigarettes Start date: 09/19/1962 Quit date: 09/19/2008 Years since quittin.3 Smokeless tobacco: Never Tobacco comments: Quit Vaping Use Vaping status: Never Used Substance Use Topics Alcohol use: No Drug use: No FAMILY HISTORY Problem Relation Age of Onset Cataract Mother other (Dementia) Mother Coronary Artery Disease Father Heart Father Cataract Father Glaucoma Father Detached Retina No Family History Macular Degen No Family History Blindness No Family History Amblyopia No Family History Strabismus No Family History PAST MEDICAL HISTORY Diagnosis Date Epiretinal membrane (ERM) of left eye Erythrocytosis 09/15/2014 Hyperlipemia 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) 12/02/2008 Nausea with vomiting PCO (posterior capsular opacification), left Pseudophakia, both eyes Secondary and unspecified malignant neoplasm of lymph nodes of head, face, 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 HEAD (Incl. face): Normocephalic; Atraumatic. EYES: Pupils are reactive. No scleral icterus. HEENT: No oral exudates. NECK: No thyromegaly. No JVD. Evidence of neck surgery. HEMATOLOGY/LYMPHATIC: No petechiae or purpura. No tender or palpable lymph nodes in the cervical, supraclavicular, axillary or inguinal areas. RESPIRATORY: Lungs are clear to auscultation. CARDIOVASCULAR: Regular rate and rhythm. 2 + radial pulse. ABDOMEN: Non-tender, soft, positive bowel sounds. BACK/SPINE: No kyphosis or scoliosis. Non tender to palpation. MUSCULOSKELETAL: No tenderness or swelling, normal range of motion without obvious weakness. EXTREMITIES: No cyanosis, clubbing INTEGUMENTARY: No rashes or masses. NEURO: No sensory or motor deficits, normal cerebellar function, normal gait, cranial nerves intact. PSYCHIATRIC: Pleasant affect. No signs of agitation. LABS: Latest Reference Range & Units 01/22/24 12:51 Sodium, Whole Blood (iSTAT) 138 - 146 mmol/L 147 (H) Potassium, Whole Blood (iSTAT) 3.5 - 4.9 mmol/L 3.6 Chloride, Whole Blood (iSTAT) 98 - 109 mmol/L 100 TCO2, Whole Blood (iSTAT) 24 - 29 mmol/L 34 (H) BUN, Whole Blood (iSTAT) 8 - 26 mg/dL 33 (H) Creatinine, Whole Blood (iSTAT) 0.60 - 1.30 mg/dL 0.80 Glucose, Whole Blood (iSTAT) 70 - 105 mg/dL 104 Protein, Total 6.3 - 8.0 g/dL 8.0 Ionized Calcium, WB (iSTAT) 1.12 - 1.32 mmol/L 1.22 Albumin 3.9 - 4.9 g/dL 4.3 Bilirubin, Total 0.2 - 1.3 mg/dL 0.5 Bilirubin, Direct <0.2 mg/dL <0.2 Alkaline Phosphatase 38 - 113 U/L 114 (H) ALT 10 - 54 U/L 21 AST 14 - 40 U/L 28 Anion Gap, Whole Blood (iSTAT) 0 - 15 mmol/L 13 WBC 3.70 - 11.00 k/uL 5.78 RBC 4.20 - 6.00 m/uL 4.41 Hemoglobin 13.0 - 17.0 g/dL 13.5 Hematocrit 39.0 - 51.0 % 42.6 Platelet Count 150 - 400 k/uL 162 MCV 80.0 - 100.0 fL 96.6 MCH 26.0 - 34.0 pg 30.6 MCHC 30.5 - 36.0 g/dL 31.7 MPV 9.0 - 12.7 fL 11.0 RDW-CV 11.5 - 15.0 % 14.8 DTYPE Auto Neut% % 78.4 Abs Neut (ANC) 1.45 - 7.50 k/uL 4.53 Lymph% % 9.7 Abs Lymph 1.00 - 4.00 k/uL 0.56 (L) Gaston% % 9.3 Abs Gaston <0.87 k/uL 0.54 Eosin% % 1.9 Abs Eosin <0.46 k/uL 0.11 Baso% % 0.5 Abs Baso <0.11 k/uL 0.03 Immature Gran % % 0.2 IMMATURE GRANS (ABS) <0.10 k/uL <0.03 NRBC /100 WBC 0.0 Absolute nRBC <0.01 k/uL <0.01 (H): Data is abnormally high (L): Data is abnormally low RADIOLOGY: CHEST CT WITH CONTRAST -DATE OF EXAM: Jan 22 2024 2:41PM RESULT: Limitations: None. Lines, tubes, and devices: None. Lung parenchyma , airways, and pleural space: A small amount of retained secretions within the trachea and right mainstem bronchus are noted. Persistent diffuse bronchial wall thickening and mucous plugging is again appreciated, most prominent within the right lower lobe. Bilateral areas of tree-in-bud opacities, most prominent within the right middle and lower lobes, slightly improved. Several newly apparent patchy groundglass opacities are appreciated, for example within the left lower lobe, image [id number], within the posterior right upper lobe, image 63, series 4. The previously identified partially consolidative opacity at the lateral aspect of the superior segment of the right lower lobe has resolved, however, a newly apparent similar in appearance opacity is appreciated more medially within the superior segment of the right lower lobe, image 96, series 4. Lower neck, lymph nodes, and mediastinum: The visualized thyroid gland is stable. No substantial supraclavicular or axillary lymphadenopathy is identified. Mild subcarinal adenopathy has improved, now measuring approximately 1.9 x 1.0 cm, previously 2.1 x 1.3 cm. Just inferior to this, a 1.0 cm in short axis paraesophageal lymph node has decreased in size. No substantial mediastinal or hilar adenopathy is identified elsewhere. Heart, pericardium, and thoracic vessels: The thoracic aorta is normal in caliber. No substantial pericardial effusion. Bones/Soft Tissues: Degenerative change within the thoracic spine. No osseous destructive process. Upper Abdomen: A CT examination of the abdomen has been performed concurrently and will be dictated separately. IMPRESSION: 1. Improved appearance to bilateral areas of tree-in-bud opacities, most prominent within the right middle and lower lobes. 2. Several newly apparent bilateral areas of groundglass/consolidative opacities are identified, as detailed above, likely infectious/inflammatory in nature. Correlation with continued follow-up examinations is recommended. 3. Improved appearance to mildly prominent mediastinal lymph nodes, as above. CT ABDOMEN AND PELVIS WITH IV CONTRAST-DATE OF EXAM: Jan 22 2024 2:41PM RESULT: Liver: No mass. Biliary Tract: No bile duct dilation. The gallbladder appears unremarkable. Spleen: No splenomegaly. No mass. Pancreas: No mass or ductal dilation. Adrenal glands: No mass. Right kidney: Numerous renal cysts are again appreciated. An indeterminate, 1.3 cm partially exophytic lesion at the posterior aspect of the interpolar region has slightly progressed in size, previously 0.9 cm, image 62, series 3. Left kidney: Numerous renal cysts are again noted. 1.0 cm indeterminate density lesion at the upper pole is stable in size, image 47, series 3. A 6 mm indeterminate exophytic lower pole lesion is stable, image 63, series 3. GI Tract: No bowel wall thickening or dilation. Percutaneous gastric tube is noted in place. Lymph nodes: No substantial mesenteric or retroperitoneal adenopathy. Mesentery/Peritoneum: No ascites or mass. Retroperitoneum: No mass. Vasculature: - Abdominal aorta and iliac arteries: Atherosclerotic calcifications. 3.3 cm infrarenal abdominal aortic aneurysm, previously 3.2 cm. - Celiac and SMA: Patent. - Portal venous system (SMV, splenic vein, portal vein and branches): Patent. - Hepatic veins: Patent. Pelvis: No free fluid or pelvic mass. Prostate gland is moderately enlarged, unchanged. Bones/Soft Tissues: Degenerative change within the lumbar spine. No osseous destructive process. Lower Thorax: A CT examination of the chest has been performed concurrently and will be dictated separately. Client Engagement Specialist (topogram) images: No additional findings. IMPRESSION: 1. No evidence for metastatic disease to the abdomen or pelvis. 2. An indeterminate 1.3 cm right renal lesion has slightly progressed in size. Further workup with dedicated CT kidney examination is recommended. Additional indeterminate left renal lesions appear stable. 3. 3.3 cm infrarenal abdominal aortic aneurysm, minimally progressed in size. ASSESSMENT / PLAN: 1. 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 He is due to see Dr. Holder. 2. Weight loss. Patient is status post PEG. Patient is been evaluated by nutrition. He is receiving additional supplementation. He is having more trouble aspiration. 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 He is s/p peg. No clear evidence of malignancy. Patient return to see me in 6 months. 3. Increasing nodular densities right lower lobe. He is due to see Dr. Bojorquez in followup. 4. Pleural-based density. 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 6. Right Kidney.had MRI dated March 12, 2023. This showed multiple bilateral renal cysts. Predominant Bosniak 1 and Bosniak 2. Since most recent CT scan shows abnormality involving the right kidney. I will discuss the case with Dr. Perez from whether further workup needs to be done. Consider urology evaluation. Some Elements Copied from my note previous note,July 23, 2023. I have updated where appropriate, and all reflect current medical decision making from today, January 26, 2024 Sushma Brandon MD documented in this encounter [facility] 01-22-2024 History of Present illness Narrative Radiology Service Progress Note DATE OF SERVICE: January 22, 2024 TIME: 3:23 PM PATIENT IDENTITY VERIFICATION COMPLETED USING TWO (2) STANDARD IDENTIFIERS: Name and Date of confirmed by patient verbally. FALL SCREENING: Has the patient had 2 falls in the last year or 1 fall with injury or currently using an Ambulatory Assistive Device (Walker, Cane, Wheelchair, Crutches, etc.)? No PATIENT GENDER DATA: Male PATIENT RELEVANT IMPLANT DATA REVIEWED: Yes PATIENT PRESENTS WITH AN IMPLANTABLE OR ATTACHED SUBSCRIPTION AGENT: No ALLERGIES: Reviewed and unchanged CONTRAST ALLERGY: NO. EXAM: CT -CONTRAST INDUCED NEPHROPATHY RISK FACTORS: Patient age > 60 years and eGFR=93 CREATININE: Creatinine Date Value Ref Range Status 07/18/2023 0.61 (L) 0.73 - 1.22 mg/dL Final 06/04/2023 0.73 0.73 - 1.22 mg/dL Final Creatinine, Whole Blood (iSTAT) Date Value Ref Range Status 01/22/2024 0.80 0.60 - 1.30 mg/dL Final iSTAT eGFR Date Value Ref Range Status 01/22/2024 93 >=60 mL/min/1.73m Final Comment: Estimated Glomerular Filtration Rate (eGFR) is calculated using the 2020 CKD-EPI creatinine equation. This equation utilizes serum creatinine, sex, and age as parameters. The creatinine assay has traceable calibration to isotope dilution-mass spectrometry. Refer to KDIGO guidelines for clinical interpretation. In patients with unstable renal function, e.g. those with acute kidney injury, the eGFR may not accurately reflect actual GFR. eGFR- Date Value Ref Range Status 09/24/2017 >60 Final P.O.C.T. RESULTS: POC done: Yes, See Lab Tab January 22, 2024 TREATMENT: N/A PERIPHERAL IV DATA: Ambulatory: A peripheral IV was started in the Right antecubital site with a Angio cath: 22 gauge. RADIOLOGY DEPARTMENT: CT; Exam(s) Completed: Chest Abdomen Pelvis SIGNATURE: LAKSHMI Soler) PATIENT NAME: Amy Sun DATE: January 22, 2024 TIME: 3:23 PM documented in this encounter [facility] 01-22-2024 Note HNO ID: [id number] Author: PETE CONTRERAS RT (R) Service: ? Author Type: Technologist Type: Progress Notes Filed: 01/22/2024 15:24 Note Text: Radiology Service Progress Note DATE OF SERVICE: January 22, 2024 TIME: 3:23 PM PATIENT IDENTITY VERIFICATION COMPLETED USING TWO (2) STANDARD IDENTIFIERS: Name and Date of confirmed by patient verbally. FALL SCREENING: Has the patient had 2 falls in the last year or 1 fall with injury or currently using an Ambulatory Assistive Device (Walker, Cane, Wheelchair, Crutches, etc.)? No PATIENT GENDER DATA: Male PATIENT RELEVANT IMPLANT DATA REVIEWED: Yes PATIENT PRESENTS WITH AN IMPLANTABLE OR ATTACHED SUBSCRIPTION AGENT: No ALLERGIES: Reviewed and unchanged CONTRAST ALLERGY: NO. EXAM: CT -CONTRAST INDUCED NEPHROPATHY RISK FACTORS: Patient age > 60 years and eGFR=93 CREATININE: Creatinine Date Value Ref Range Status 07/18/2023 0.61 (L) 0.73 - 1.22 mg/dL Final 06/04/2023 0.73 0.73 - 1.22 mg/dL Final Creatinine, Whole Blood (iSTAT) Date Value Ref Range Status 01/22/2024 0.80 0.60 - 1.30 mg/dL Final iSTAT eGFR Date Value Ref Range Status 01/22/2024 93 >=60 mL/min/1.73m? Final Comment: Estimated Glomerular Filtration Rate (eGFR) is calculated using the 2020 CKD-EPI creatinine equation. This equation utilizes serum creatinine, sex, and age as parameters. The creatinine assay has traceable calibration to isotope dilution-mass spectrometry. Refer to KDIGO guidelines for clinical interpretation. In patients with unstable renal function, e.g. those with acute kidney injury, the eGFR may not accurately reflect actual GFR. eGFR- Date Value Ref Range Status 09/24/2017 >60 Final P.O.C.T. RESULTS: POC done: Yes, See Lab Tab January 22, 2024 TREATMENT: N/A PERIPHERAL IV DATA: Ambulatory: A peripheral IV was started in the Right antecubital site with a Angio cath: 22 gauge. RADIOLOGY DEPARTMENT: CT; Exam(s) Completed: Chest Abdomen Pelvis SIGNATURE: Pete Contreras, RT(R) PATIENT NAME: Amy Sun DATE: January 22, 2024 TIME: 3:23 PM [facility] 01-21-2024 Telephone encounter Note Need for iStat BMP due to chemistry analyzer being down on 01/22/24 for maintenance. Shakir Arcos RN [facility] 01-21-2024 Miscellaneous Notes Need for iStat BMP due to chemistry analyzer being down on 01/22/24 for maintenance. Shakir Arcos RN documented in this encounter [facility] 01-21-2024 Note [facility] PATIENT: Amy Sun DATE / TIME: 01/21/24 11:19 AM POS: Office AGE: 73 y.o. : 1950 RACE: [1] SEX: male PCP: Ulices Clark DO REFERRAL: No ref. provider found TOS: SUBJECTIVE: 73-year-old male here to follow-up for his left inguinal hernia. Patient was initially scheduled for left inguinal hernia repair, but subsequently ended up in the hospital, was diagnosed with a new PE, now on Eliquis. Today the patient reports that his hernia still reducible, but causes him significant discomfort. Denies any overlying skin changes. OBJECTIVE: BP (P) 117/75 (BP Location: Left arm, Patient Position: Sitting, BP Cuff Size: Adult) Pulse (!) 54 Temp (P) 97.9 degrees F (36.6 degrees C) (Oral) Resp (P) 15 Ht (P) 6' 1 Wt (P) 77.7 kg (171 lb 6.4 oz) SpO2 90% BMI (P) 22.61 kg/m ASSESSMENT: 73-year-old male with reducible left inguinal hernia, and recently diagnosed PE now on Eliquis PLAN: Would not recommend elective surgery at this time due to recent diagnosis of PE I will reach out to the patient's primary Dr. Clark to discuss timing of surgery, and at one point I will be safe to hold the patient's Eliquis for 48 hours prior to procedure Patient provided with strict return precautions if he develops worsening pain over hernia site, skin changes, or obstructive symptoms. Instructed to avoid any heavy lifting, or any activities that increase intra-abdominal pressure Tess Flores DO General Surgery 11:22 AM 01/21/24 AUTHENTICATED BY TESS FLORES, ON 01/21/2024 11:22:46 [facility] 01-21-2024 History of Present illness Narrative [facility] PATIENT: Amy Sun DATE / TIME: 01/21/24 11:19 AM POS: Office AGE: 73 y.o. : 1950 RACE: [1] SEX: male PCP: Ulices Clark DO REFERRAL: No ref. provider found TOS: SUBJECTIVE: 73-year-old male here to follow-up for his left inguinal hernia. Patient was initially scheduled for left inguinal hernia repair, but subsequently ended up in the hospital, was diagnosed with a new PE, now on Eliquis. Today the patient reports that his hernia still reducible, but causes him significant discomfort. Denies any overlying skin changes. OBJECTIVE: BP (P) 117/75 (BP Location: Left arm, Patient Position: Sitting, BP Cuff Size: Adult) Pulse (!) 54 Temp (P) 97.9 F (36.6 C) (Oral) Resp (P) 15 Ht (P) 6' 1 Wt (P) 77.7 kg (171 lb 6.4 oz) SpO2 90% BMI (P) 22.61 kg/m ASSESSMENT: 73-year-old male with reducible left inguinal hernia, and recently diagnosed PE now on Eliquis PLAN: Would not recommend elective surgery at this time due to recent diagnosis of PE I will reach out to the patient's primary Dr. Clark to discuss timing of surgery, and at one point I will be safe to hold the patient's Eliquis for 48 hours prior to procedure Patient provided with strict return precautions if he develops worsening pain over hernia site, skin changes, or obstructive symptoms. Instructed to avoid any heavy lifting, or any activities that increase intra-abdominal pressure Tess Flores DO General Surgery 11:22 AM 01/21/24 documented in this encounter [facility] 01-13-2024 Evaluation + Plan note Associated Problem(s): Anxiety and depression Mood is much improved on sertraline 50 mg daily. Continue. [facility] 01-13-2024 Miscellaneous Notes Associated Problem(s): Anxiety and depression Mood is much improved on sertraline 50 mg daily. Continue. Associated Problem(s): Pulmonary lesion, right Right upper and right lower lesions on CTPE 12/21, favored to be infectious/inflammatory in setting of hospitalization for CAP, acute PE. Recommended follow up CT in 3 months. Follows with pulmonology and heme-onc. Associated Problem(s): Pulmonary embolus, right (HCC) Hospitalized 12/21-12/24 for CAP, acute hypoxemic respiratory failure, and acute PE. Follows with pulmonology, Dr. Bojorquez and heme-onc, Dr. Brandon. - Continue eliquis 5 mg BID, likely indefinitely documented in this encounter [facility] 01-13-2024 Evaluation + Plan note Associated Problem(s): Pulmonary lesion, right Right upper and right lower lesions on CTPE 12/21, favored to be infectious/inflammatory in setting of hospitalization for CAP, acute PE. Recommended follow up CT in 3 months. Follows with pulmonology and heme-onc. [facility] 01-13-2024 Evaluation + Plan note Associated Problem(s): Pulmonary embolus, right (HCC) Hospitalized 12/21-12/24 for CAP, acute hypoxemic respiratory failure, and acute PE. Follows with pulmonology, Dr. Bojorquez and heme-onc, Dr. Brandon. - Continue eliquis 5 mg BID, likely indefinitely [facility] 01-13-2024 Note Assessment/Plan: Pulmonary embolus, right (HCC) Hospitalized 12/21-12/24 for CAP, acute hypoxemic respiratory failure, and acute PE. Follows with pulmonology, Dr. Bojorquez and heme-onc, Dr. Brandon. - Continue eliquis 5 mg BID, likely indefinitely Pulmonary lesion, right Right upper and right lower lesions on CTPE 12/21, favored to be infectious/inflammatory in setting of hospitalization for CAP, acute PE. Recommended follow up CT in 3 months. Follows with pulmonology and heme-onc. Anxiety and depression Mood is much improved on sertraline 50 mg daily. Continue. Subjective: Amy Sun is a 73 y.o. male Chief Complaint Patient presents with Blood Clot Presenting for follow up. He was recently hospitalized for pneumonia and PE. He is now on eliquis 5 mg BID, but has only been taking it once daily due to confusion about the dosing. His mood is much improved on sertraline 50 mg daily. He has gained 7 lbs since last visit and his reports he is tolerating more volume. The following portions of the patient's history were reviewed and updated as appropriate: allergies, current medications, past family history, past medical history, past social history, past surgical history and problem list. Review of Systems Objective: PACU Vitals 01/13/24 1338 BP: 127/89 Pulse: 91 Resp: 16 Temp: 97.2 degrees F (36.2 degrees C) SpO2: 98% Physical Exam Constitutional: General: He is not in acute distress. Appearance: Normal appearance. Comments: Appears more alert and with more healthy skin color than previous encounters. HENT: Head: Normocephalic and atraumatic. Cardiovascular: Rate and Rhythm: Normal rate and regular rhythm. Heart sounds: No murmur heard. Pulmonary: Effort: Pulmonary effort is normal. No respiratory distress. Breath sounds: Normal breath sounds. No wheezing or rales. Abdominal: General: Abdomen is flat. Palpations: Abdomen is soft. Comments: G-tube c/d/I. Skin: General: Skin is warm and dry. Neurological: Mental Status: He is alert. Psychiatric: Mood and Affect: Mood normal. For any new medications prescribed today, patient was educated about indications for the medication, how to take the medication and potential side effects of the medications. Ulices Clark DO AUTHENTICATED BY ULICES CLARK, ON 01/13/2024 17:08:01 [facility] 01-13-2024 History of Present illness Narrative Assessment/Plan: Pulmonary embolus, right (HCC) Hospitalized 12/21-12/24 for CAP, acute hypoxemic respiratory failure, and acute PE. Follows with pulmonology, Dr. Bojorquez and heme-onc, Dr. Brandon. - Continue eliquis 5 mg BID, likely indefinitely Pulmonary lesion, right Right upper and right lower lesions on CTPE 12/21, favored to be infectious/inflammatory in setting of hospitalization for CAP, acute PE. Recommended follow up CT in 3 months. Follows with pulmonology and heme-onc. Anxiety and depression Mood is much improved on sertraline 50 mg daily. Continue. Subjective: Amy Sun is a 73 y.o. male Chief Complaint Patient presents with Blood Clot Presenting for follow up. He was recently hospitalized for pneumonia and PE. He is now on eliquis 5 mg BID, but has only been taking it once daily due to confusion about the dosing. His mood is much improved on sertraline 50 mg daily. He has gained 7 lbs since last visit and his reports he is tolerating more volume. The following portions of the patient's history were reviewed and updated as appropriate: allergies, current medications, past family history, past medical history, past social history, past surgical history and problem list. Review of Systems Objective: PACU Vitals 01/13/24 1338 BP: 127/89 Pulse: 91 Resp: 16 Temp: 97.2 F (36.2 C) SpO2: 98% Physical Exam Constitutional: General: He is not in acute distress. Appearance: Normal appearance. Comments: Appears more alert and with more healthy skin color than previous encounters. HENT: Head: Normocephalic and atraumatic. Cardiovascular: Rate and Rhythm: Normal rate and regular rhythm. Heart sounds: No murmur heard. Pulmonary: Effort: Pulmonary effort is normal. No respiratory distress. Breath sounds: Normal breath sounds. No wheezing or rales. Abdominal: General: Abdomen is flat. Palpations: Abdomen is soft. Comments: G-tube c/d/I. Skin: General: Skin is warm and dry. Neurological: Mental Status: He is alert. Psychiatric: Mood and Affect: Mood normal. For any new medications prescribed today, patient was educated about indications for the medication, how to take the medication and potential side effects of the medications. Ulices Clark DO documented in this encounter [facility] 01-02-2024 Note Education (SARAHI) ---- AMY SUN ([id number]) 1950 M Date Time Provider Department 01/02/24 3:30 PM ZOYA HILLMAN Reason for Visit: Nutrition Telephone [2014] Primary Visit Diagnosis: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) [C01] Other Visit Diagnoses:Severe protein-calorie malnutrition (HCC) [E43] S/P percutaneous endoscopic gastrostomy (PEG) tube placement ([facility]) [Z93.1] During your visit today, we recorded the following information about you: Allergies As of Date: 01/02/2024 (No Known Allergies) Date Reviewed: 01/02/2024 Reviewed by: Zoya Hillman RD - Fully Assessed Prescriptions as of 01/02/2024 - nut tx, lact-reduced, iron ([facility]) 0.09-2.25 gram-kcal/mL liqd 52 mL by FEEDING TUBE route continuous. Adminster with infinity feeding pump. Flush with an additional 33oz of water daily (divided). - iv contrast (will be provided with radiology test) CT Chest W -Inject, intravenously, once for 1 dose.No IV access, insert saline lock prior to the beginning of sedation, infusion, injection of imaging exam. Discontinue saline lock post exam. If Pt. has a central line or IVAD, may access for administration according to line specific nursing protocol. Once exam is complete flush line and de-access according to line specific nursing protocol in the CT contrast administration guidelines link. - iv contrast (will be provided with radiology test) CT ABD/PEL -Inject, intravenously, once for 1 dose.No IV access, insert saline lock prior to the beginning of sedation, infusion, injection of imaging exam. Discontinue saline lock post exam. If Pt. has a central line or IVAD, may access for administration according to line specific nursing protocol. Once exam is complete flush line and de-access according to line specific nursing protocol in the CT contrast administration guidelines link. - enteric contrast (will be provided with radiology test) For CT ABD/PEL W IVCON Routine order Administer, As Directed One Time Only, via Oral, Rectal, both Oral and Rectal, Enteric Tube, Stoma or Indwelling Catheter, Enteric Contrast as designated per enteric contrast guidelines - nutritional supplement-fiber (COMPLEAT 1.5) 0.07 gram-1.5 kcal/mL liqd 80ml/hr of Compleat 1.5 continuously for 24 hours. Use 1 carton of Benecalorie daily. Flush with 200ml water four times per day. - sertraline (ZOLOFT) 25 mg tablet Take 1 tablet by mouth once daily. - furosemide (LASIX) 20 mg tablet Take 20 mg by mouth once daily. - sulindac (CLINORIL) 150 mg tablet - pilocarpine (ISOPTO CARPINE) 2 % ophthalmic solution 1 Drop. - rosuvastatin (CRESTOR) 5 mg tablet Take 5 mg by mouth once daily. - pantoprazole DR (PROTONIX) 40 mg tablet - propylene glycol/peg 400 (BLINK TEARS LUBRICATING) Eye Drops Use 1 Drop in both eyes as needed. - traMADol (ULTRAM) 50 mg tablet Take 1 tablet by mouth twice daily. - testosterone (ANDROGEL) 50 mg/5 g (1%) gel Apply 0.5 Tubes as directed once daily. Encounter Status:Closed by ZOYA HILLMAN on 01/02/24 [facility] 01-02-2024 Note HNO ID: [id number] Author: ZOYA HILLMAN RD Service: ? Author Type: Registered Dietitian Type: Progress Notes Filed: 01/02/2024 15:39 Note Text: Oncology Nutrition Therapy Reassessment I have communicated my name and active licensure. The patient's identity and physical location were verified at the time of this visit. Either the patient or their legal technical services representative has been informed of the risks and benefits of -- and alternatives to -- treatment through a remote evaluation and consents to proceed with the evaluation remotely. RECOMMENDED MALNUTRITION DIAGNOSIS: SEVERE PROTEIN-CALORIE MALNUTRITION In the context of Chronic Illness or Injury based on: Unintentional Weight Loss: >7.5% in 3 months Insufficient Energy Intake: Less than 75% energy intake compared to estimated needs for greater than or equal to 1 month Nutrition Diagnosis: Swallowing difficulty, related to, dysphagia 2/2 head and neck cancer, as evidenced by PEG placement and diagnosis. Nutrition Intervention: -Use of PEG feeding tube for 100% nutrition needs - Increase water intake to a total of 1 liter in addition to formula per day. -Use salt and soda mouth rinse - utilize good technique for medication administration via PEG Nutrition Monitoring AND Evaluation: EN intake Wt status Biochemical Markers Skin integrity Plan of care Patient Condition: Pt presents for nutrition counseling for history of malignant neoplasm of base of tongue with new onset dysphagia and Feeding tube placement 2/2 cancer. Pt had original PEG placed on 04/07/[address] Godoy. 01/02/24: Pt is stable from a nutritional standpoint. No current issues with ballon gtube EN intake: 5 bottles of tube feeding (3 Boost [facility] and 2 of Compleat 1.5) 2340kcal daily Water intake: 20ml x 3; 3 cup water with Rx = 780ml +800ml (formula) = 1630ml water PO intake: Ice only Weight: 169.3lb - self-reported Continue current nutrition intervention. Readiness to Learn: Cognitive ability: Alert and oriented Motivation to learn: Eager Family support: High - Very involved in pt care Instruction provided to: Patient and Spouse Patient learns best by: Multiple Methods Factors affecting learning: None Physical limitations affecting learning: None Anthropometrics: HEIGHT/WEIGHT/BSA Height BSA (m2) Weight 06/10/2022 2.19 m2 202 lb 14.4 oz 11/27/2022 188 cm (6' 2.02) 2.1 m2 186 lb 8 oz 12/04/2022 2.12 m2 189 lb 02/05/2023 188 cm (6' 2.02) 2.05 m2 177 lb 14.4 oz 02/14/2023 2.03 m2 174 lb 11.2 oz 02/28/2023 188 cm (6' 2.02) 2.06 m2 178 lb 9.6 oz 03/21/2023 188 cm (6' 2.02) 2.03 m2 174 lb 9.7 oz 05/29/2023 2.01 m2 170 lb 13.7 oz 06/04/2023 1.96 m2 162 lb 11.2 oz 06/23/2023 188 cm (6' 2.02) 1.94 m2 158 lb 4.6 oz 07/08/2023 188 cm (6' 2.02) 1.9 m2 152 lb 6.4 oz 07/23/2023 188 cm (6' 2.02) 1.98 m2 164 lb 14.5 oz Estimated body mass index is 21.16 kg/m? as calculated from the following: Height as of 07/23/23: 188 cm (6' 2.02). Weight as of 07/23/23: 74.8 kg (164 lb 14.5 oz). Resting Metabolic Rate: 1616 Dosing Weight: 77.5 kg Estimated kilocalorie needs: 1744-0823 kilocalories determined by 35-40 kcal/kg Estimated protein needs: 93-116 grams determined by 1.2-1.5 g/kg Dosing weight Estimated fluid needs: 1261-0854 milliliters based on 1 mL per kcal Allergies: Patient has no known allergies. Medications: Current Outpatient Medications Medication Sig Dispense Refill nut tx, lact-reduced, iron ([facility]) 0.09-2.25 gram-kcal/mL liqd 52 mL by FEEDING TUBE route continuous. Adminster with infinity feeding pump. Flush with an additional 33oz of water daily (divided). 36077 mL 11 iv contrast (will be provided with radiology test) CT Chest W -Inject, intravenously, once for 1 dose.No IV access, insert saline lock prior to the beginning of sedation, infusion, injection of imaging exam. Discontinue saline lock post exam. If Pt. has a central line or IVAD, may access for administration according to line specific nursing protocol. Once exam is complete flush line and de-access according to line specific nursing protocol in the CT contrast administration guidelines link. 1 Each 0 iv contrast (will be provided with radiology test) CT ABD/PEL -Inject, intravenously, once for 1 dose.No IV access, insert saline lock prior to the beginning of sedation, infusion, injection of imaging exam. Discontinue saline lock post exam. If Pt. has a central line or IVAD, may access for administration according to line specific nursing protocol. Once exam is complete flush line and de-access according to line specific nursing protocol in the CT contrast administration guidelines link. 1 Each 0 enteric contrast (will be provided with radiology test) For CT ABD/PEL W IVCON Routine order Administer, As Directed One Time Only, via Oral, Rectal, both Oral and Rectal, Enteric Tube, Stoma or Indwelling Catheter, Enteric Contrast as designated per enteric (more content not included)... [facility] 01-02-2024 History of Present illness Narrative Oncology Nutrition Therapy Reassessment I have communicated my name and active licensure. The patient's identity and physical location were verified at the time of this visit. Either the patient or their legal technical services representative has been informed of the risks and benefits of -- and alternatives to -- treatment through a remote evaluation and consents to proceed with the evaluation remotely. RECOMMENDED MALNUTRITION DIAGNOSIS: SEVERE PROTEIN-CALORIE MALNUTRITION In the context of Chronic Illness or Injury based on: Unintentional Weight Loss: >7.5% in 3 months Insufficient Energy Intake: Less than 75% energy intake compared to estimated needs for greater than or equal to 1 month Nutrition Diagnosis: Swallowing difficulty, related to, dysphagia 2/2 head and neck cancer, as evidenced by PEG placement and diagnosis. Nutrition Intervention: -Use of PEG feeding tube for 100% nutrition needs - Increase water intake to a total of 1 liter in addition to formula per day. -Use salt and soda mouth rinse - utilize good technique for medication administration via PEG Nutrition Monitoring & Evaluation: EN intake Wt status Biochemical Markers Skin integrity Plan of care Patient Condition: Pt presents for nutrition counseling for history of malignant neoplasm of base of tongue with new onset dysphagia and Feeding tube placement 2/2 cancer. Pt had original PEG placed on 04/07/[address] Godoy. 01/02/24: Pt is stable from a nutritional standpoint. No current issues with ballon gtube EN intake: 5 bottles of tube feeding (3 Boost [facility] and 2 of Compleat 1.5) 2340kcal daily Water intake: 20ml x 3; 3 cup water with Rx = 780ml +800ml (formula) = 1630ml water PO intake: Ice only Weight: 169.3lb - self-reported Continue current nutrition intervention. Readiness to Learn: Cognitive ability: Alert and oriented Motivation to learn: Eager Family support: High - Very involved in pt care Instruction provided to: Patient and Spouse Patient learns best by: Multiple Methods Factors affecting learning: None Physical limitations affecting learning: None Anthropometrics: HEIGHT/WEIGHT/BSA Height BSA (m2) Weight 06/10/2022 2.19 m2 202 lb 14.4 oz 11/27/2022 188 cm (6' 2.02) 2.1 m2 186 lb 8 oz 12/04/2022 2.12 m2 189 lb 02/05/2023 188 cm (6' 2.02) 2.05 m2 177 lb 14.4 oz 02/14/2023 2.03 m2 174 lb 11.2 oz 02/28/2023 188 cm (6' 2.02) 2.06 m2 178 lb 9.6 oz 03/21/2023 188 cm (6' 2.02) 2.03 m2 174 lb 9.7 oz 05/29/2023 2.01 m2 170 lb 13.7 oz 06/04/2023 1.96 m2 162 lb 11.2 oz 06/23/2023 188 cm (6' 2.02) 1.94 m2 158 lb 4.6 oz 07/08/2023 188 cm (6' 2.02) 1.9 m2 152 lb 6.4 oz 07/23/2023 188 cm (6' 2.02) 1.98 m2 164 lb 14.5 oz Estimated body mass index is 21.16 kg/m as calculated from the following: Height as of 07/23/23: 188 cm (6' 2.02). Weight as of 07/23/23: 74.8 kg (164 lb 14.5 oz). Resting Metabolic Rate: 1616 Dosing Weight: 77.5 kg Estimated kilocalorie needs: 7114-7082 kilocalories determined by 35-40 kcal/kg Estimated protein needs: 93-116 grams determined by 1.2-1.5 g/kg Dosing weight Estimated fluid needs: 8914-6732 milliliters based on 1 mL per kcal Allergies: Patient has no known allergies. Medications: Current Outpatient Medications Medication Sig Dispense Refill nut tx, lact-reduced, iron ([facility]) 0.09-2.25 gram-kcal/mL liqd 52 mL by FEEDING TUBE route continuous. Adminster with infinity feeding pump. Flush with an additional 33oz of water daily (divided). 17853 mL 11 iv contrast (will be provided with radiology test) CT Chest W -Inject, intravenously, once for 1 dose.No IV access, insert saline lock prior to the beginning of sedation, infusion, injection of imaging exam. Discontinue saline lock post exam. If Pt. has a central line or IVAD, may access for administration according to line specific nursing protocol. Once exam is complete flush line and de-access according to line specific nursing protocol in the CT contrast administration guidelines link. 1 Each 0 iv contrast (will be provided with radiology test) CT ABD/PEL -Inject, intravenously, once for 1 dose.No IV access, insert saline lock prior to the beginning of sedation, infusion, injection of imaging exam. Discontinue saline lock post exam. If Pt. has a central line or IVAD, may access for administration according to line specific nursing protocol. Once exam is complete flush line and de-access according to line specific nursing protocol in the CT contrast administration guidelines link. 1 Each 0 enteric contrast (will be provided with radiology test) For CT ABD/PEL W IVCON Routine order Administer, As Directed One Time Only, via Oral, Rectal, both Oral and Rectal, Enteric Tube, Stoma or Indwelling Catheter, Enteric Contrast as designated per enteric contrast guidelines 1 Each 0 nutritional supplement-fiber (COMPLEAT 1.5) 0.07 gram-1.5 kcal/mL liqd 80ml/hr of Compleat 1.5 continuously for 24 hours. Use 1 carton of Benecalorie daily. Flush with 200ml water four times per day. 02205 mL 11 sertraline (ZOLOFT) 25 mg tablet Take 1 tablet by mouth once daily. furosemide (LASIX) 20 mg tablet Take 20 mg by mouth once daily. sulindac (CLINORIL) 150 mg tablet pilocarpine (ISOPTO CARPINE) 2 % ophthalmic solution 1 Drop. rosuvastatin (CRESTOR) 5 mg tablet Take 5 mg by mouth once daily. pantoprazole DR (PROTONIX) 40 mg tablet propylene glycol/peg 400 (BLINK TEARS LUBRICATING) Eye Drops Use 1 Drop in both eyes as needed. traMADol (ULTRAM) 50 mg tablet Take 1 tablet by mouth twice daily. testosterone (ANDROGEL) 50 mg/5 g (1%) gel Apply 0.5 Tubes as directed once daily. No current facility-administered medications for this visit. Need for Follow up: 4 weeks Referred/Supervised by: Dr. Nitin LEMA Billing Type: Re-assess/15 min 2 units Billed Time: 30 minutes Signed by: Zoya Hillman RD, LD documented in this encounter [facility] 12-31-2023 Evaluation + Plan note Associated Problem(s): Single subsegmental pulmonary embolism without acute cor pulmonale - admitted 12/21-08/2023 [facility] Summary Reviewed: AMS; PE, PNA; Details as noted. - 12/22/23 CTPE ([facility] admission - PE) Impression 1. Exam is positive for pulmonary embolus with filling defect in a right lower lobe posterior segmental pulmonary artery. There is reversal of the normal interventricular septal bowing suggestive of acute right heart strain. 2. Rounded consolidative opacity in the posterior right upper lobe and small cavitary nodule in the superior segment of the right lower lobe are new when compared to 06/14/2023. These are favored to relate to acute infectious/inflammatory nodules/pneumonia with additional patchy areas of infectious/inflammatory infiltrate in the left lower lobe. Short-term follow-up chest CT in 3 months is recommended to exclude developing neoplasm. 3. Right lower lobe bronchiectasis with bronchial wall thickening and areas of mucous plugging consistent with acute bronchitis. Airway secretions are present in the right mainstem bronchus. --- ffup CT 3 mos 03/23/24 - 12/23/23 Duplex examination using B-mode, color and spectral Doppler of extremity veins including responses to compression and other maneuvers; complete bilateral study. Conclusions * No evidence of deep or superficial vein thrombosis in the lower extremities bilaterally. * Hypoechoic structure noted in the left popliteal fossa measuring 2.4 x 2.8 x 1.1 cm. - 12/23/23 Echocardiogram [facility] - 12/24/23 CXR [facility] Impression Somewhat low lung volumes. Mild interstitial changes. No focal infiltrates. - on Eliquis; most prob indefinitely (has Mets. Prostate Cancer) - also ff'd by Heme-Onc [facility] Dr. Brandon [facility] 12-31-2023 Miscellaneous Notes Associated Problem(s): Single subsegmental pulmonary embolism without acute cor pulmonale - admitted 12/21-08/2023 [facility] Summary Reviewed: AMS; PE, PNA; Details as noted. - 12/22/23 CTPE ([facility] admission - PE) Impression 1. Exam is positive for pulmonary embolus with filling defect in a right lower lobe posterior segmental pulmonary artery. There is reversal of the normal interventricular septal bowing suggestive of acute right heart strain. 2. Rounded consolidative opacity in the posterior right upper lobe and small cavitary nodule in the superior segment of the right lower lobe are new when compared to 06/14/2023. These are favored to relate to acute infectious/inflammatory nodules/pneumonia with additional patchy areas of infectious/inflammatory infiltrate in the left lower lobe. Short-term follow-up chest CT in 3 months is recommended to exclude developing neoplasm. 3. Right lower lobe bronchiectasis with bronchial wall thickening and areas of mucous plugging consistent with acute bronchitis. Airway secretions are present in the right mainstem bronchus. --- ffup CT 3 mos 03/23/24 - 12/23/23 Duplex examination using B-mode, color and spectral Doppler of extremity veins including responses to compression and other maneuvers; complete bilateral study. Conclusions * No evidence of deep or superficial vein thrombosis in the lower extremities bilaterally. * Hypoechoic structure noted in the left popliteal fossa measuring 2.4 x 2.8 x 1.1 cm. - 12/23/23 Echocardiogram [facility] - 12/24/23 CXR [facility] Impression Somewhat low lung volumes. Mild interstitial changes. No focal infiltrates. - on Eliquis; most prob indefinitely (has Mets. Prostate Cancer) - also ff'd by Heme-Onc [facility] Dr. Brandon Associated Problem(s): Chronic respiratory failure with hypoxia, on home oxygen therapy - Continue O2 as necessary; may titrate to keep spO2>90%; wean as tolerated; pt benefits from O2. Associated Problem(s): S/P percutaneous endoscopic gastrostomy (PEG) tube placement Tongue CA; s/p PEG; ff'd by Onc Associated Problem(s): Aspiration pneumonia of both lungs - admitted 06/13- DC Summary Reviewed: Aspn PNA bilat. - IV atb, steroids; O2 weaned off; continuous tube feeds at home was set-up. DC w/ emp Levaquin, Prednisone taper. Details as noted. CT Chest 06/14/2023 IMPRESSION: 1. Increasing nodular densities right lower lobe most likely inflammatory, correlate for pneumonitis/pneumonia. Prominent gas in the esophagus suggesting reflux, question aspiration pneumonia. 2. Enlarging pleural-based density containing small amounts of gas adjacent to the inflammatory density in the right lower lobe noted above. Seen in the posterior inferior medial right chest centered at the T10-T11 level. Question whether this a chronic inflammatory process within the lung or adjacent pleura. There is no adjacent bony erosion or increasing pleural effusion. Has been present previously of variable size, large larger on 05/09/2023 and decreased on 05/24/2023. - 07/18/23 CT chest w/ c [facility] IMPRESSION: 1. Since 06/14/2023, mild increase in multifocal tree-in-bud opacities, most pronounced within the right lower lobe, and to a lesser degree within the right middle lobe and left lower lobe, compatible with infection/inflammation. The distribution is consistent with aspiration. 2. Persistent distal bronchiolar mucous plugging within the right lower lobe. Dependent secretions are present within the right mainstem bronchus and bronchus intermedius. 3. Unchanged mildly enlarged mediastinal lymph nodes. - 12/22/23 CTPE ([facility] admission - PE) Impression 1. Exam is positive for pulmonary embolus with filling defect in a right lower lobe posterior segmental pulmonary artery. There is reversal of the normal interventricular septal bowing suggestive of acute right heart strain. 2. Rounded consolidative opacity in the posterior right upper lobe and small cavitary nodule in the superior segment of the right lower lobe are new when compared to 06/14/2023. These are favored to relate to acute infectious/inflammatory nodules/pneumonia with additional patchy areas of infectious/inflammatory infiltrate in the left lower lobe. Short-term follow-up chest CT in 3 months is recommended to exclude developing neoplasm. 3. Right lower lobe bronchiectasis with bronchial wall thickening and areas of mucous plugging consistent with acute bronchitis. Airway secretions are present in the right mainstem bronchus. --- ffup CT 3 mos 03/23/24 - clinically improved; s/p emp Levaquin - aspn precautions; on tube feeds - ffup CT for resolution Associated Problem(s): Centrilobular emphysema Mild ULP; See COPD txs Associated Problem(s): COPD (chronic obstructive pulmonary disease) - [facility] 05/24/0707/26/2023 Discharge summary reviewed: PNA, trace hemoptysis - emp Levaquin, Prednisone. Hypoxia - O2 weaned off. AECOPD, HTN, BPH, GERD, Severe PCM malnutrion, s/p PEG, HLD - fmr Smoker; hx of COPD, as per records; was on Albuterol nebs prev. - may have Asthma COPD overlap; PFT 08/2023. - 08/22/2023 PFT: - Spirometry - MODERATELY SEVERE OBSTRUCTION, FEV1/FVC 58%, FEV1 2.03L 58% predicted, FVC 3.53L 74% predicted; w/ SMALL AIRWAY flow limitation. - Significant response to bronchodilator: LARGE response during this testing, as may be seen w/ Asthma, RAD (FEV1 increased 15%). - Lung Volume - HYPERINFLATION, INCREASED TLC 12.03L 167% predicted, RV 8.78L 314% predicted - w/ SEVERE AIR TRAPPING. - Diffusing Capacity: MILDLY REDUCED DLCO 66% predicted, DL/VA 107% (which normalizes when adjusted for lung volume, suggesting probably extraparenchymal cause; e.g., body habitus; may also have emphysema). - Flow Volume Loops - Obstructive pattern; No overt upper airway obstruction pattern. - Consider LAMA/LABA or try triple tx Trelegy, Breztri, or other inhaler regimen, as indic; if feasible; albuterol as needed; use spacer - 12/31/23 cont Albuterol prn, nebs prn; maint inhalers/nebs, if needed - consider Daliresp subseq as indic., as tolerated; if feasible - may also use duonebs; budesonide+formoterol nebs alternatively - patient benefits from nebulizer treatments - Inhaler technique teaching done/reviewed prev.; rinse mouth after inhaler use, especially steroid inhalers - Smoking cessation reinforced: quit - advised OTC Calcium+Vit D, lifestyle recs for osteoporosis prevention, especially if on frequent or long-term systemic steroids (osteoporosis screening/management as per PCP prn, as indic) - monitor PFT prn, as indicated - monitor imaging prn, Chest radiograph as needed (CT Chest as indicated) - Pulmonary rehab program, if feasible; rec to stay active - Influenza, pneumococcal, COVID19, pulmonary vaccines recommended, updated Associated Problem(s): Malignant neoplasm of base of tongue - hx of Squamous cell CA Tongue, s/p PEG; hx of Dysphagia and Aspn PNA. - ff'd by [facility] Onc Dr. Brandon; ENT Dr. Holder - 03/21/[address] [facility] [address] Brandon: ASSESSMENT / PLAN: 1. 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 He is due to see Dr. Holder. 2. Weight loss. Found to have pharyngoesophageal dysphagia. He has been referred for a PEG. He saw Dr. Payan and they decided to defer on the peg. He reports that his appetite has improved. He is aware the possible CT findings could represent aspiration. Patient was seen by speech therapy on 03/04/2023. No safe diet was recommended the patient and the understand risks of continued feeding. Will continue to follow. 3. Lung cancer screening/Nodule. He quit smoking in 2008 but prior to that had a 3 ppd for [address] scans performed while hospitalized in February. He again was found to have a trach in the right lower lobe. Overall, the lung was suspected to represent pneumonia. I will repeat CAT scans in 3 months to ensure clearing. 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 5. Right Kidney.had MRI dated March 12, 2023. This showed multiple bilateral renal cysts. Predominant Bosniak 1 and Bosniak 2. Some of these lesions are too Femara to fully characterize but there are no overtly suspicious renal masses. - 07/23/[address] [facility] [address] Brandon Reviewed: Since her last visit, patient reports that he has been seen by Dr. Rivas that time to discuss possible vocal cord fillers. Patient reports he is not interested. In addition patient has been seen by speech therapy. This has also been stabilized. He continues to use his feeding tube. -- ASSESSMENT / PLAN: 1. 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 He is due to see Dr. Holder. 2. Weight loss. Patient is status post PEG. Patient is been evaluated by nutrition. He is receiving additional supplementation. He is having more trouble aspiration. 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 Patient has been evaluated by ENT. Patient was seen by Dr. Rivas. They are talking about vocal cord filler. No clear evidence of malignancy. Patient return to see me in 6 months. 3. Increasing nodular densities right lower lobe. This would likely represent aspiration however given the severity we will repeat CT scans in 6 months. 4. Pleural-based density. Previously mentioned pleural-based lesion is no longer seen or mentioned on this CT. I will ask for direct comparison. 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 6. Right Kidney.had MRI dated March 12, 2023. This showed multiple bilateral renal cysts. Predominant Bosniak 1 and Bosniak 2. Associated Problem(s): Mass of pleura - 07/18/23 CT chest w/ c [facility] IMPRESSION: 1. Since 06/14/2023, mild increase in multifocal tree-in-bud opacities, most pronounced within the right lower lobe, and to a lesser degree within the right middle lobe and left lower lobe, compatible with infection/inflammation. The distribution is consistent with aspiration. 2. Persistent distal bronchiolar mucous plugging within the right lower lobe. Dependent secretions are present within the right mainstem bronchus and bronchus intermedius. 3. Unchanged mildly enlarged mediastinal lymph nodes. - 12/22/23 CTPE ([facility] admission - PE) Impression 1. Exam is positive for pulmonary embolus with filling defect in a right lower lobe posterior segmental pulmonary artery. There is reversal of the normal interventricular septal bowing suggestive of acute right heart strain. 2. Rounded consolidative opacity in the posterior right upper lobe and small cavitary nodule in the superior segment of the right lower lobe are new when compared to 06/14/2023. These are favored to relate to acute infectious/inflammatory nodules/pneumonia with additional patchy areas of infectious/inflammatory infiltrate in the left lower lobe. Short-term follow-up chest CT in 3 months is recommended to exclude developing neoplasm. 3. Right lower lobe bronchiectasis with bronchial wall thickening and areas of mucous plugging consistent with acute bronchitis. Airway secretions are present in the right mainstem bronchus. --- ffup CT 3 mos 03/23/24 - RLL medial juxtapleural atelectasis, opacity noted in body of report; prob Benign postinflammatory; but w/ smoking hx - ffup CT for stability, resolution - PET, biopsy, prn, as indic - further evaluation, management pending results, clinical course. - Diagnostic (malignant vs benign) and management options discussed at length w/ pt; questions answered; and pt stated understanding and agreement. - also ff'd by [facility] On[facility] for Prostate CA w/ mets Associated Problem(s): Multifocal pneumonia - admitted 12/21-08/2023 [facility] Summary Reviewed: AMS; PE, PNA; Details as noted. - 12/22/23 CTPE ([facility] admission - PE) Impression 1. Exam is positive for pulmonary embolus with filling defect in a right lower lobe posterior segmental pulmonary artery. There is reversal of the normal interventricular septal bowing suggestive of acute right heart strain. 2. Rounded consolidative opacity in the posterior right upper lobe and small cavitary nodule in the superior segment of the right lower lobe are new when compared to 06/14/2023. These are favored to relate to acute infectious/inflammatory nodules/pneumonia with additional patchy areas of infectious/inflammatory infiltrate in the left lower lobe. Short-term follow-up chest CT in 3 months is recommended to exclude developing neoplasm. 3. Right lower lobe bronchiectasis with bronchial wall thickening and areas of mucous plugging consistent with acute bronchitis. Airway secretions are present in the right mainstem bronchus. --- ffup CT 3 mos 03/23/24 - clinically Improved s/p atb - ffup CT for resolution - further evaluation, management pending results, clinical course. Associated Problem(s): Multiple lung nodules on CT - Surveillance Cts, imaging as per Onc Dr. Brandon [facility]. - 02/18/23 CT Chest w/ c [facility] IMPRESSION: 1. Extensive branching [id number]-type micronodules are present in the right lower lobe and right middle lobe, and to a lesser extent in the left lower lobe. This is stable to slightly progressed from the CT performed on 02/05/2023, and compatible with an infectious or inflammatory bronchiolitis. 2. The newly noted 8mm right lower lobe nodule seen on 02/05/2023 has slightly decreased in size to 6 mm on today's study, and is thus presumably related to the infectious/inflammatory bronchiolitis. The newly noted cluster of 4 to 5 mm nodules seen in the right lower lobe on 02/05/2023 is unchanged on today's examination and is likely infectious or inflammatory in etiology as well. A follow-up chest CT is recommended following treatment for infection, to confirm resolution. 3. Additional incidental findings are detailed above. - 03/21/[address] [facility] [address] Brandon: ASSESSMENT / PLAN: 1. 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 He is due to see Dr. Holder. 2. Weight loss. Found to have pharyngoesophageal dysphagia. He has been referred for a PEG. He saw Dr. Payan and they decided to defer on the peg. He reports that his appetite has improved. He is aware the possible CT findings could represent aspiration. Patient was seen by speech therapy on 03/04/2023. No safe diet was recommended the patient and the understand risks of continued feeding. Will continue to follow. 3. Lung cancer screening/Nodule. He quit smoking in 2008 but prior to that had a 3 ppd for [address] scans performed while hospitalized in February. He again was found to have a trach in the right lower lobe. Overall, the lung was suspected to represent pneumonia. I will repeat CAT scans in 3 months to ensure clearing. 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 5. Right Kidney.had MRI dated March 12, 2023. This showed multiple bilateral renal cysts. Predominant Bosniak 1 and Bosniak 2. Some of these lesions are too Femara to fully characterize but there are no overtly suspicious renal masses. - 07/18/23 CT chest w/ c [facility] IMPRESSION: 1. Since 06/14/2023, mild increase in multifocal tree-in-bud opacities, most pronounced within the right lower lobe, and to a lesser degree within the right middle lobe and left lower lobe, compatible with infection/inflammation. The distribution is consistent with aspiration. 2. Persistent distal bronchiolar mucous plugging within the right lower lobe. Dependent secretions are present within the right mainstem bronchus and bronchus intermedius. 3. Unchanged mildly enlarged mediastinal lymph nodes. - 07/23/[address] [facility] [address] Brandon Reviewed: Since her last visit, patient reports that he has been seen by Dr. Rivas that time to discuss possible vocal cord fillers. Patient reports he is not interested. In addition patient has been seen by speech therapy. This has also been stabilized. He continues to use his feeding tube. -- ASSESSMENT / PLAN: 1. 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 He is due to see Dr. Holder. 2. Weight loss. Patient is status post PEG. Patient is been evaluated by nutrition. He is receiving additional supplementation. He is having more trouble aspiration. 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 Patient has been evaluated by ENT. Patient was seen by Dr. Rivas. They are talking about vocal cord filler. No clear evidence of malignancy. Patient return to see me in 6 months. 3. Increasing nodular densities right lower lobe. This would likely represent aspiration however given the severity we will repeat CT scans in 6 months. 4. Pleural-based density. Previously mentioned pleural-based lesion is no longer seen or mentioned on this CT. I will ask for direct comparison. 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 6. Right Kidney.had MRI dated March 12, 2023. This showed multiple bilateral renal cysts. Predominant Bosniak 1 and Bosniak 2. - 12/22/23 CTPE ([facility] admission - [place]) Impression 1. Exam is positive for pulmonary embolus with filling defect in a right lower lobe posterior segmental pulmonary artery. There is reversal of the normal interventricular septal bowing suggestive of acute right heart strain. 2. Rounded consolidative opacity in the posterior right upper lobe and small cavitary nodule in the superior segment of the right lower lobe are new when compared to 06/14/2023. These are favored to relate to acute infectious/inflammatory nodules/pneumonia with additional patchy areas of infectious/inflammatory infiltrate in the left lower lobe. Short-term follow-up chest CT in 3 months is recommended to exclude developing neoplasm. 3. Right lower lobe bronchiectasis with bronchial wall thickening and areas of mucous plugging consistent with acute bronchitis. Airway secretions are present in the right mainstem bronchus. --- ffup CT 3 mos 03/23/24 - prob Postinflammatory s/p PNA - ffup CT for stability - further evaluation, management pending results, clinical course. - Diagnostic (malignant vs benign) and management options discussed at length w/ pt; questions answered; and pt stated understanding and agreement. documented in this encounter [facility] 12-31-2023 Evaluation + Plan note Associated Problem(s): Chronic respiratory failure with hypoxia, on home oxygen therapy - Continue O2 as necessary; may titrate to keep spO2>90%; wean as tolerated; pt benefits from O2. [facility] 12-31-2023 History of Present illness Narrative Currently smoking or Hx of smoking -former Oxygen use _yes (3L NOC) patient is benefiting from oxygen use. Do you have a CPAP- NO DME company- N/A Most recent CT- 07/18/23 Most recent PFT- 08/22/23 Symptoms included - coughing Increase in shortness of breath- no Dyspnea upon exertion- no Dyspnea at rest- no Cough- productive-yes Have you had the Covid 19 vaccine-10/11/22 Do you need a Medication refill? no Pt presents for review of labs, CT Chest Maintenance medication - Flonase Maintenance inhaler- none Rescue medication-Albuterol 108 (90 Base) MCG/ACT Aero Soln inhaler Albuterol (2.5 MG/3ML) 0.083% inhalation solution Follow up to review labs, CT Chest (active, last completed - 07/18/23) Patient is a 73 y.o. male who came to be evaluated and managed for COPD, FR Hypoxia, Pneumonia hosp 05/2023 No chief complaint on file. . ICD-10-CM 1. Single subsegmental pulmonary embolism without acute cor pulmonale I26.93 2. Mass of pleura J94.8 CT CHEST WITHOUT CONTRAST 3. Lung nodule R91.1 CT CHEST WITHOUT CONTRAST 4. Multiple lung nodules on CT R91.8 5. Multifocal pneumonia J18.9 6. Malignant neoplasm of base of tongue C01 7. Chronic obstructive pulmonary disease, unspecified COPD type J44.9 Revefenacin (Yupelri) 175 MCG/3ML Solution formoterol (Perforomist) 20 MCG/2ML Nebu Soln nebulizer solution budesonide 0.5 MG/2ML nebulizer suspension 8. Centrilobular emphysema J43.2 9. S/P percutaneous endoscopic gastrostomy (PEG) tube placement Z93.1 10. Chronic respiratory failure with hypoxia, on home oxygen therapy J96.11 Z99.81 Problem List Items Addressed This Visit Malignant neoplasm of base of tongue - hx of Squamous cell CA Tongue, s/p PEG; hx of Dysphagia and Aspn PNA. - ff'd by [facility]c Dr. Brandon; ENT Dr. Holder - 03/21/[address] [facility] [address] Brandon: ASSESSMENT / PLAN: 1. 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 He is due to see Dr. Holder. 2. Weight loss. Found to have pharyngoesophageal dysphagia. He has been referred for a PEG. He saw Dr. Payan and they decided to defer on the peg. He reports that his appetite has improved. He is aware the possible CT findings could represent aspiration. Patient was seen by speech therapy on 03/04/2023. No safe diet was recommended the patient and the understand risks of continued feeding. Will continue to follow. 3. Lung cancer screening/Nodule. He quit smoking in 2008 but prior to that had a 3 ppd for [address] scans performed while hospitalized in February. He again was found to have a trach in the right lower lobe. Overall, the lung was suspected to represent pneumonia. I will repeat CAT scans in 3 months to ensure clearing. 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 5. Right Kidney.had MRI dated March 12, 2023. This showed multiple bilateral renal cysts. Predominant Bosniak 1 and Bosniak 2. Some of these lesions are too Femara to fully characterize but there are no overtly suspicious renal masses. - 07/23/[address] [facility] [address] Brandon Reviewed: Since her last visit, patient reports that he has been seen by Dr. Rivas that time to discuss possible vocal cord fillers. Patient reports he is not interested. In addition patient has been seen by speech therapy. This has also been stabilized. He continues to use his feeding tube. -- ASSESSMENT / PLAN: 1. 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 He is due to see Dr. Holder. 2. Weight loss. Patient is status post PEG. Patient is been evaluated by nutrition. He is receiving additional supplementation. He is having more trouble aspiration. 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 Patient has been evaluated by ENT. Patient was seen by Dr. Rivas. They are talking about vocal cord filler. No clear evidence of malignancy. Patient return to see me in 6 months. 3. Increasing nodular densities right lower lobe. This would likely represent aspiration however given the severity we will repeat CT scans in 6 months. 4. Pleural-based density. Previously mentioned pleural-based lesion is no longer seen or mentioned on this CT. I will ask for direct comparison. 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 6. Right Kidney.had MRI dated March 12, 2023. This showed multiple bilateral renal cysts. Predominant Bosniak 1 and Bosniak 2. Multiple lung nodules on CT - Surveillance Cts, imaging as per Onc Dr. Brandon [facility]. - 02/18/23 CT Chest w/ c [facility] IMPRESSION: 1. Extensive branching rldc-nk-[id number]-type micronodules are present in the right lower lobe and right middle lobe, and to a lesser extent in the left lower lobe. This is stable to slightly progressed from the CT performed on 02/05/2023, and compatible with an infectious or inflammatory bronchiolitis. 2. The newly noted 8mm right lower lobe nodule seen on 02/05/2023 has slightly decreased in size to 6 mm on today's study, and is thus presumably related to the infectious/inflammatory bronchiolitis. The newly noted cluster of 4 to 5 mm nodules seen in the right lower lobe on 02/05/2023 is unchanged on today's examination and is likely infectious or inflammatory in etiology as well. A follow-up chest CT is recommended following treatment for infection, to confirm resolution. 3. Additional incidental findings are detailed above. - 03/21/[address] [facility] [address] Brandon: ASSESSMENT / PLAN: 1. 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 He is due to see Dr. Holder. 2. Weight loss. Found to have pharyngoesophageal dysphagia. He has been referred for a PEG. He saw Dr. Payan and they decided to defer on the peg. He reports that his appetite has improved. He is aware the possible CT findings could represent aspiration. Patient was seen by speech therapy on 03/04/2023. No safe diet was recommended the patient and the understand risks of continued feeding. Will continue to follow. 3. Lung cancer screening/Nodule. He quit smoking in 2008 but prior to that had a 3 ppd for [address] scans performed while hospitalized in February. He again was found to have a trach in the right lower lobe. Overall, the lung was suspected to represent pneumonia. I will repeat CAT scans in 3 months to ensure clearing. 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 5. Right Kidney.had MRI dated March 12, 2023. This showed multiple bilateral renal cysts. Predominant Bosniak 1 and Bosniak 2. Some of these lesions are too Femara to fully characterize but there are no overtly suspicious renal masses. - 07/18/23 CT chest w/ c [facility] IMPRESSION: 1. Since 06/14/2023, mild increase in multifocal tree-in-bud opacities, most pronounced within the right lower lobe, and to a lesser degree within the right middle lobe and left lower lobe, compatible with infection/inflammation. The distribution is consistent with aspiration. 2. Persistent distal bronchiolar mucous plugging within the right lower lobe. Dependent secretions are present within the right mainstem bronchus and bronchus intermedius. 3. Unchanged mildly enlarged mediastinal lymph nodes. - 07/23/[address] [facility] [address] Brandon Reviewed: Since her last visit, patient reports that he has been seen by Dr. Rivas that time to discuss possible vocal cord fillers. Patient reports he is not interested. In addition patient has been seen by speech therapy. This has also been stabilized. He continues to use his feeding tube. -- ASSESSMENT / PLAN: 1. 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 He is due to see Dr. Holder. 2. Weight loss. Patient is status post PEG. Patient is been evaluated by nutrition. He is receiving additional supplementation. He is having more trouble aspiration. 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 Patient has been evaluated by ENT. Patient was seen by Dr. Rivas. They are talking about vocal cord filler. No clear evidence of malignancy. Patient return to see me in 6 months. 3. Increasing nodular densities right lower lobe. This would likely represent aspiration however given the severity we will repeat CT scans in 6 months. 4. Pleural-based density. Previously mentioned pleural-based lesion is no longer seen or mentioned on this CT. I will ask for direct comparison. 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 6. Right Kidney.had MRI dated March 12, 2023. This showed multiple bilateral renal cysts. Predominant Bosniak 1 and Bosniak 2. - 12/22/23 CTPE ([facility] admission - PE) Impression 1. Exam is positive for pulmonary embolus with filling defect in a right lower lobe posterior segmental pulmonary artery. There is reversal of the normal interventricular septal bowing suggestive of acute right heart strain. 2. Rounded consolidative opacity in the posterior right upper lobe and small cavitary nodule in the superior segment of the right lower lobe are new when compared to 06/14/2023. These are favored to relate to acute infectious/inflammatory nodules/pneumonia with additional patchy areas of infectious/inflammatory infiltrate in the left lower lobe. Short-term follow-up chest CT in 3 months is recommended to exclude developing neoplasm. 3. Right lower lobe bronchiectasis with bronchial wall thickening and areas of mucous plugging consistent with acute bronchitis. Airway secretions are present in the right mainstem bronchus. --- ffup CT 3 mos 03/23/24 - prob Postinflammatory s/p PNA - ffup CT for stability - further evaluation, management pending results, clinical course. - Diagnostic (malignant vs benign) and management options discussed at length w/ pt; questions answered; and pt stated understanding and agreement. S/P percutaneous endoscopic gastrostomy (PEG) tube placement Tongue CA; s/p PEG; ff'd by Onc COPD (chronic obstructive pulmonary disease) - admitted [facility] 05/24/0707/26/2023 Discharge summary reviewed: PNA, trace hemoptysis - emp Levaquin, Prednisone. Hypoxia - O2 weaned off. AECOPD, HTN, BPH, GERD, Severe PCM malnutrion, s/p PEG, HLD - fmr Smoker; hx of COPD, as per records; was on Albuterol nebs prev. - may have Asthma COPD overlap; PFT 08/2023. - 08/22/2023 PFT: - Spirometry - MODERATELY SEVERE OBSTRUCTION, FEV1/FVC 58%, FEV1 2.03L 58% predicted, FVC 3.53L 74% predicted; w/ SMALL AIRWAY flow limitation. - Significant response to bronchodilator: LARGE response during this testing, as may be seen w/ Asthma, RAD (FEV1 increased 15%). - Lung Volume - HYPERINFLATION, INCREASED TLC 12.03L 167% predicted, RV 8.78L 314% predicted - w/ SEVERE AIR TRAPPING. - Diffusing Capacity: MILDLY REDUCED DLCO 66% predicted, DL/VA 107% (which normalizes when adjusted for lung volume, suggesting probably extraparenchymal cause; e.g., body habitus; may also have emphysema). - Flow Volume Loops - Obstructive pattern; No overt upper airway obstruction pattern. - Consider LAMA/LABA or try triple tx Trelegy, Breztri, or other inhaler regimen, as indic; if feasible; albuterol as needed; use spacer - 12/31/23 cont Albuterol prn, nebs prn; maint inhalers/nebs, if needed - consider Daliresp subseq as indic., as tolerated; if feasible - may also use duonebs; budesonide+formoterol nebs alternatively - patient benefits from nebulizer treatments - Inhaler technique teaching done/reviewed prev.; rinse mouth after inhaler use, especially steroid inhalers - Smoking cessation reinforced: quit - advised OTC Calcium+Vit D, lifestyle recs for osteoporosis prevention, especially if on frequent or long-term systemic steroids (osteoporosis screening/management as per PCP prn, as indic) - monitor PFT prn, as indicated - monitor imaging prn, Chest radiograph as needed (CT Chest as indicated) - Pulmonary rehab program, if feasible; rec to stay active - Influenza, pneumococcal, COVID19, pulmonary vaccines recommended, updated Relevant Medications Revefenacin (Yupelri) 175 MCG/3ML Solution formoterol (Perforomist) 20 MCG/2ML Nebu Soln nebulizer solution budesonide 0.5 MG/2ML nebulizer suspension Multifocal pneumonia - admitted 12/21-08/2023 [facility] Summary Reviewed: AMS; PE, PNA; Details as noted. - 12/22/23 CTPE ([facility] admission - [place]) Impression 1. Exam is positive for pulmonary embolus with filling defect in a right lower lobe posterior segmental pulmonary artery. There is reversal of the normal interventricular septal bowing suggestive of acute right heart strain. 2. Rounded consolidative opacity in the posterior right upper lobe and small cavitary nodule in the superior segment of the right lower lobe are new when compared to 06/14/2023. These are favored to relate to acute infectious/inflammatory nodules/pneumonia with additional patchy areas of infectious/inflammatory infiltrate in the left lower lobe. Short-term follow-up chest CT in 3 months is recommended to exclude developing neoplasm. 3. Right lower lobe bronchiectasis with bronchial wall thickening and areas of mucous plugging consistent with acute bronchitis. Airway secretions are present in the right mainstem bronchus. --- ffup CT 3 mos 03/23/24 - clinically Improved s/p atb - ffup CT for resolution - further evaluation, management pending results, clinical course. Centrilobular emphysema Mild ULP; See COPD txs Mass of pleura - 07/18/23 CT chest w/ c [facility] IMPRESSION: 1. Since 06/14/2023, mild increase in multifocal tree-in-bud opacities, most pronounced within the right lower lobe, and to a lesser degree within the right middle lobe and left lower lobe, compatible with infection/inflammation. The distribution is consistent with aspiration. 2. Persistent distal bronchiolar mucous plugging within the right lower lobe. Dependent secretions are present within the right mainstem bronchus and bronchus intermedius. 3. Unchanged mildly enlarged mediastinal lymph nodes. - 12/22/23 CTPE ([facility] admission - [place]) Impression 1. Exam is positive for pulmonary embolus with filling defect in a right lower lobe posterior segmental pulmonary artery. There is reversal of the normal interventricular septal bowing suggestive of acute right heart strain. 2. Rounded consolidative opacity in the posterior right upper lobe and small cavitary nodule in the superior segment of the right lower lobe are new when compared to 06/14/2023. These are favored to relate to acute infectious/inflammatory nodules/pneumonia with additional patchy areas of infectious/inflammatory infiltrate in the left lower lobe. Short-term follow-up chest CT in 3 months is recommended to exclude developing neoplasm. 3. Right lower lobe bronchiectasis with bronchial wall thickening and areas of mucous plugging consistent with acute bronchitis. Airway secretions are present in the right mainstem bronchus. --- ffup CT 3 mos 03/23/24 - RLL medial juxtapleural atelectasis, opacity noted in body of report; prob Benign postinflammatory; but w/ smoking hx - ffup CT for stability, resolution - PET, biopsy, prn, as indic - further evaluation, management pending results, clinical course. - Diagnostic (malignant vs benign) and management options discussed at length w/ pt; questions answered; and pt stated understanding and agreement. - also ff'd by [facility] Onc for Prostate CA w/ mets Relevant Orders CT CHEST WITHOUT CONTRAST Single subsegmental pulmonary embolism without acute cor pulmonale - Primary - admitted 12/21-08/2023 [facility] Summary Reviewed: AMS; PE, PNA; Details as noted. - 12/22/23 CTPE ([facility] admission - [place]) Impression 1. Exam is positive for pulmonary embolus with filling defect in a right lower lobe posterior segmental pulmonary artery. There is reversal of the normal interventricular septal bowing suggestive of acute right heart strain. 2. Rounded consolidative opacity in the posterior right upper lobe and small cavitary nodule in the superior segment of the right lower lobe are new when compared to 06/14/2023. These are favored to relate to acute infectious/inflammatory nodules/pneumonia with additional patchy areas of infectious/inflammatory infiltrate in the left lower lobe. Short-term follow-up chest CT in 3 months is recommended to exclude developing neoplasm. 3. Right lower lobe bronchiectasis with bronchial wall thickening and areas of mucous plugging consistent with acute bronchitis. Airway secretions are present in the right mainstem bronchus. --- ffup CT 3 mos 03/23/24 - 12/23/23 Duplex examination using B-mode, color and spectral Doppler of extremity veins including responses to compression and other maneuvers; complete bilateral study. Conclusions * No evidence of deep or superficial vein thrombosis in the lower extremities bilaterally. * Hypoechoic structure noted in the left popliteal fossa measuring 2.4 x 2.8 x 1.1 cm. - 12/23/23 Echocardiogram [facility] - 12/24/23 CXR [facility] Impression Somewhat low lung volumes. Mild interstitial changes. No focal infiltrates. - on Eliquis; most prob indefinitely (has Mets. Prostate Cancer) - also ff'd by Heme-Onc [facility] Dr. Brandon Chronic respiratory failure with hypoxia, on home oxygen therapy - Continue O2 as necessary; may titrate to keep spO2>90%; wean as tolerated; pt benefits from O2. Other Visit Diagnoses Lung nodule Relevant Orders CT CHEST WITHOUT CONTRAST HPI 12/31/23: not in ae, on inhalers. Imaging, PFT, 6mwt, labs, Notes Reviewed. - admitted 12/21-08/2023 [facility] Summary Reviewed: AMS; PE, PNA; Details as noted. --- Right lower lobe posterior segmental pulmonary artery with acute right heart strain. Echo, ejection fraction 68%, no pulmonary hypertension Cardiology consulted, recommendation no indication for intervention, recommended switch to oral anticoagulation Start heparin drip initially, switched to oral Eliquis on 12/23 Doppler studies lower extremity negative for DVT Chest pain nonspecific on 12/23, responded to Tylenol and oxycodone Patient pain-free on 12/24 acute hypoxemic respiratory failure, current on NC 2 L/min. Acute bilateral CAP- right upper lobe and left lower lobe. Acute bronchitis. Right lower lobe bronchiectasis Follow-up chest CT in 3 months is recommended to exclude developing neoplasm Urine Legionella and strep antigen. Negative Start ceftriaxone and azithromycin initially, azithromycin stop on 12/22, patient discharged on Augmentin for 5 days course Chest PT DuoNeb every 6 as needed Oxygen has dropped since night of 12/23 with findings of fluid overload on chest x-ray proBNP within normal limit Lasix 20 mg IV once on 12/23, 10 mg on 12/24 Patient prior to this hospitalization was evaluated for home oxygen at that time he refused but he is okay to wear oxygen at home if needed RT assessed him for home oxygen Right lower extremity pain Possibly muscle strain Knee x-ray negative for acute findings Venous Doppler negative for DVT Tylenol as needed Tongue cancer status post PEG resection, now on PEG tube for dysphagia Continue with PEG tube for feeding, hold tube feed until cardiology evaluate the patient Dietitian consulted Patient has had intermittent tongue complete since admission, contribution due to IV heparin, continue heparin drip for now as patient does not have any active bleed and risk of thrombosis is higher than risk of bleed, patient and patient okay with the plan No more bleeding on 12/24 BPH Urinary retention Continue Flomax, patient stated that Flomax extended release cannot be pushed through PEG tube and requested Serna catheter be discontinued Serna catheter inserted upon admission, discontinued on 12/23 Patient reported some urinary incontinence on 12/24, multifactorial due to Lasix, status post discontinue Serna catheter, patient to follow-up with urology as outpatient, likely incontinence is temporary Depression Anxiety Continue sertralineRLL segmental PE w/ RT heart strain 08/26/23: not in ae, on inhaler albuterol. Imaging, PFT, 6mwt, labs, Notes Reviewed. - 08/07/23 PCP ffup Reviewed. - 07/23/[address] [facility] [address] Brandon Reviewed: Since her last visit, patient reports that he has been seen by Dr. Rivas that time to discuss possible vocal cord fillers. Patient reports he is not interested. In addition patient has been seen by speech therapy. This has also been stabilized. He continues to use his feeding tube. -- ASSESSMENT / PLAN: 1. 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 He is due to see Dr. Holder. 2. Weight loss. Patient is status post PEG. Patient is been evaluated by nutrition. He is receiving additional supplementation. He is having more trouble aspiration. 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 Patient has been evaluated by ENT. Patient was seen by Dr. Prendes. They are talking about vocal cord filler. No clear evidence of malignancy. Patient return to see me in 6 months. 3. Increasing nodular densities right lower lobe. This would likely represent aspiration however given the severity we will repeat CT scans in 6 months. 4. Pleural-based density. Previously mentioned pleural-based lesion is no longer seen or mentioned on this CT. I will ask for direct comparison. 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 6. Right Kidney.had MRI dated March 12, 2023. This showed multiple bilateral renal cysts. Predominant Bosniak 1 and Bosniak 2. - admitted 06/13- DC Summary Reviewed: Aspn PNA bilat. - IV atb, steroids; O2 weaned off; continuous tube feeds at home was set-up. DC w/ emp Levaquin, Prednisone taper. Details as noted. -- Discharge Diagnoses: Principal Problem: Aspiration pneumonia of both lungs Active Problems: Multiple lung nodules on CT Inadequate energy intake related to decreased ability to consume sufficient energy as evidenced by hx of throat cancer and current total nutrition provided via PEG. Leukocytosis Squamous cell carcinoma of tongue S/P percutaneous endoscopic gastrostomy (PEG) tube placement GERD (gastroesophageal reflux disease) Acute respiratory failure with hypoxia COPD exacerbation Cough with hemoptysis Mass of pleura Brief Summary of Hospital Course: Mr. Amy Sun is a 72 year old male with a past medical history including hypertension, hyperlipidemia, GERD, BPH, DJD, COPD, hepatic steatosis, insomnia, tongue cancer, pharyngeoesophageal dysphagia S/P PEG tube placement and former tobacco abuse who presented to ER with complaints of dyspnea. Patient's temperature was 100.5 on arrival. He was 82% on room air. CT chest did show multifocal pneumonia and suggest aspiration. Patient placed on HCAP antibiotic coverage and admitted to floor for further treatment and care. While hospitalized patients labs and VS were monitored and additional testing was ordered and reviewed. He was weaned off oxygen back to room air and has remained stable. Blood cultures drawn on arrival have remained negative to date and his MRSA screen on arrival was determined negative. Patient was treated with IV antibiotics and systemic steroids which have been transitioned to PO for completion of course for treatment of pneumonia. He was seen by tourist home keeper and recommended for continuous feeds which maybe more beneficial to reduce incidence of aspiration form feedings. learning services coordinator were consulted and discharge arrangements were discussed and patient was set up for discharge with continuous tube feedings but did deny all other needs from social work coordinator post discharge. This morning he is afebrile on room air and his white count is trending down. He states doing well and readiness to go home. He will be discharged today in stable condition with instructions to resume medications as listed below and follow up with his PCP in 1 week. Prescriptions have been sent to patients pharmacy of record except tube feed prescription which will be sent by case management to [facility]. 06/04/23 - admitted [facility] 05/24/0707/26/2023 Discharge summary reviewed: PNA, trace hemoptysis - emp Levaquin, Prednisone. Hypoxia - O2 weaned off. AECOPD, HTN, BPH, GERD, Severe PCM malnutrion, s/p PEG, HLD - fmr Smoker; hx of COPD, as per records; was on Albuterol nebs prev. - hx of Squamous cell CA Tongue, s/p PEG; hx of Dysphagia and Aspn PNA. - 03/21/[address] [facility] [address] Brandon: ASSESSMENT / PLAN: 1. 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 He is due to see Dr. Holder. 2. Weight loss. Found to have pharyngoesophageal dysphagia. He has been referred for a PEG. He saw Dr. Payan and they decided to defer on the peg. He reports that his appetite has improved. He is aware the possible CT findings could represent aspiration. Patient was seen by speech therapy on 03/04/2023. No safe diet was recommended the patient and the understand risks of continued feeding. Will continue to follow. 3. Lung cancer screening/Nodule. He quit smoking in 2008 but prior to that had a 3 ppd for [address] scans performed while hospitalized in February. He again was found to have a trach in the right lower lobe. Overall, the lung was suspected to represent pneumonia. I will repeat CAT scans in 3 months to ensure clearing. 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 5. Right Kidney.had MRI dated March 12, 2023. This showed multiple bilateral renal cysts. Predominant Bosniak 1 and Bosniak 2. Some of these lesions are too Femara to fully characterize but there are no overtly suspicious renal masses. Current Outpatient Medications: Albuterol (2.5 MG/3ML) 0.083% inhalation solution, Take 3 mL by nebulization every 6 hours as needed for Shortness of Breath., Disp: 360 mL, Rfl: 5 Albuterol 108 (90 Base) MCG/ACT Aero Soln inhaler, Inhale 2 puffs every 4 hours as needed for Shortness of Breath, Respiratory Distress or Wheezing., Disp: 18 g, Rfl: 3 FIBER PO, 80ml/hr of Compleat 1.5 continuously for 24 hours. Use 1 carton of Benecalorie daily. Flush with 200ml water four times per day., Disp: , Rfl: furOSEmide (Lasix) 20 MG tablet, Take 1 tablet by mouth daily., Disp: 90 tablet, Rfl: 1 Pantoprazole (Protonix) [address] tablet DR, Take 1 tablet by mouth daily., Disp: 90 tablet, Rfl: 1 Rosuvastatin (Crestor) 5 MG tablet, Take 1 tablet by mouth daily., Disp: 90 tablet, Rfl: 1 Sertraline (Zoloft) 25 MG tablet, Take 1 tablet by mouth daily., Disp: 90 tablet, Rfl: 1 SPACER FOR INHALER PRESCRIPTION, Use with inhaler as directed, Disp: 1 Each, Rfl: 0 Testosterone 25 MG/2.5GM (1%) Gel gel, Place 2.5 g on skin daily., Disp: 225 g, Rfl: 0 traMADol (Ultram) 50 MG tablet, Take 1 tablet by mouth every 4 hours as needed., Disp: 180 tablet, Rfl: 1 Valsartan (Diovan) 160 MG tablet, Take 1 tablet by mouth daily. Check Blood pressure every day. If systolic blood pressure in > 130, then give 80 mg of valsartan (1/2 tablet), if < 130 then hold blood pressure medication. (Patient not taking: Reported on 08/07/2023), Disp: 30 tablet, Rfl: 2 Past Medical History: Diagnosis Date Abnormal glucose Bilateral leg edema BPH without urinary obstruction Chronic kidney disease (CKD), stage I Degenerative joint disease Enthesopathy Essential hypertension, benign Fatigue Former smoker 2 PPD x46 years, quite 09/19/2008 GERD (gastroesophageal reflux disease) Hepatic steatosis Hyperlipidemia Impotence of organic origin Insomnia Obesity Testicular hypofunction Tongue cancer Stage IIB, T2, N1, 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 Chemo/RT with Cisplatin and RT and Ethyol. RT completed 02/28/09. Past Surgical History: Procedure Laterality Date EGD W/ PLACEMENT OR REPLACEMENT PEG 04/04/2023 NECK SURGERY 2009 for cancer INGUINAL HERNIA REPAIR 1988 REMOVAL CATARACT (PEM) Bilateral VASECTOMY Social History Tobacco Use Smoking status: Former Types: Cigarettes Smokeless tobacco: Never Substance Use Topics Alcohol use: No Family History Problem Relation Age of Onset No known problems Mother Heart Disease - Other Father Heart Disease - Other Brother Heart Disease - Other Other Coronary Artery Disease Other No Known Allergies Review of Systems Currently smoking or Hx of smoking -former Oxygen use _yes (3L NOC) patient is benefiting from oxygen use. Do you have a CPAP- NO DME company- N/A Most recent CT- 07/18/23 Most recent PFT- 08/22/23 Symptoms included - coughing Increase in shortness of breath- no Dyspnea upon exertion- no Dyspnea at rest- no Cough- productive-yes Have you had the Covid 19 vaccine-10/11/22 Do you need a Medication refill? no Pt presents for review of labs, CT Chest Maintenance medication - Flonase Maintenance inhaler- none Rescue medication-Albuterol 108 (90 Base) MCG/ACT Aero Soln inhaler Albuterol (2.5 MG/3ML) 0.083% inhalation solution Follow up to review labs, CT Chest (active, last completed - 07/18/23) Vitals: 12/31/23 1320 Pulse: 61 Resp: 18 SpO2: 91% Weight: 76.8 kg (169 lb 4.8 oz) Height: 1.854 m (6' 1) Vital Signs Reviewed as noted. Physical Exam Vitals and nursing note reviewed. Constitutional: General: He is not in acute distress. Appearance: He is not ill-appearing. HENT: Head: Normocephalic and atraumatic. Right Ear: External ear normal. Left Ear: External ear normal. Nose: Nose normal. Mouth/Throat: Mouth: Mucous membranes are moist. Pharynx: Oropharynx is clear. No oropharyngeal exudate or posterior oropharyngeal erythema. Eyes: General: No scleral icterus. Neck: Vascular: No JVD. Trachea: No tracheal deviation. Cardiovascular: Rate and Rhythm: Normal rate and regular rhythm. Heart sounds: Normal heart sounds. Pulmonary: Effort: Pulmonary effort is normal. No respiratory distress. Breath sounds: No stridor. Examination of the right-lower field reveals rales. Examination of the left-lower field reveals rales. Rales present. No wheezing or rhonchi. Chest: Chest wall: No tenderness. Abdominal: Comments: PEG Genitourinary: Comments: Deferred Musculoskeletal: Cervical back: Neck supple. Right lower leg: No edema. Left lower leg: No edema. Lymphadenopathy: Cervical: No cervical adenopathy. Skin: General: Skin is warm and dry. Coloration: Skin is not jaundiced. Neurological: Mental Status: He is alert and oriented to person, place, and time. Psychiatric: Mood and Affect: Mood normal. Behavior: Behavior normal. I personally reviewed selected chart notes, results, interpreted tests, imaging today before seeing the pt; reviewed and discussed w/ pt, questions answered - 12/22/23 CTPE ([facility] admission - [place]) Impression 1. Exam is positive for pulmonary embolus with filling defect in a right lower lobe posterior segmental pulmonary artery. There is reversal of the normal interventricular septal bowing suggestive of acute right heart strain. 2. Rounded consolidative opacity in the posterior right upper lobe and small cavitary nodule in the superior segment of the right lower lobe are new when compared to 06/14/2023. These are favored to relate to acute infectious/inflammatory nodules/pneumonia with additional patchy areas of infectious/inflammatory infiltrate in the left lower lobe. Short-term follow-up chest CT in 3 months is recommended to exclude developing neoplasm. 3. Right lower lobe bronchiectasis with bronchial wall thickening and areas of mucous plugging consistent with acute bronchitis. Airway secretions are present in the right mainstem bronchus. --- ffup CT 3 mos 03/23/24 - 12/23/23 Duplex examination using B-mode, color and spectral Doppler of extremity veins including responses to compression and other maneuvers; complete bilateral study. Conclusions * No evidence of deep or superficial vein thrombosis in the lower extremities bilaterally. * Hypoechoic structure noted in the left popliteal fossa measuring 2.4 x 2.8 x 1.1 cm. - 12/23/23 Echocardiogram [facility] - 12/24/23 CXR [place] Impression Somewhat low lung volumes. Mild interstitial changes. No focal infiltrates. - 7/5/24 6MWT: RT NOTES ... Had a difficult time getting spo2 due to poor circulation. Attempted numerous times on each hand. - 08/22/2023 PFT: - Spirometry - MODERATELY SEVERE OBSTRUCTION, FEV1/FVC 58%, FEV1 2.03L 58% predicted, FVC 3.53L 74% predicted; w/ SMALL AIRWAY flow limitation. - Significant response to bronchodilator: LARGE response during this testing, as may be seen w/ Asthma, RAD (FEV1 increased 15%). - Lung Volume - HYPERINFLATION, INCREASED TLC 12.03L 167% predicted, RV 8.78L 314% predicted - w/ SEVERE AIR TRAPPING. - Diffusing Capacity: MILDLY REDUCED DLCO 66% predicted, DL/VA 107% (which normalizes when adjusted for lung volume, suggesting probably extraparenchymal cause; e.g., body habitus; may also have emphysema). - Flow Volume Loops - Obstructive pattern; No overt upper airway obstruction pattern. - 07/18/23 CT chest w/ c [facility] IMPRESSION: 1. Since 06/14/2023, mild increase in multifocal tree-in-bud opacities, most pronounced within the right lower lobe, and to a lesser degree within the right middle lobe and left lower lobe, compatible with infection/inflammation. The distribution is consistent with aspiration. 2. Persistent distal bronchiolar mucous plugging within the right lower lobe. Dependent secretions are present within the right mainstem bronchus and bronchus intermedius. 3. Unchanged mildly enlarged mediastinal lymph nodes. CT Chest 06/14/2023 IMPRESSION: 1. Increasing nodular densities right lower lobe most likely inflammatory, correlate for pneumonitis/pneumonia. Prominent gas in the esophagus suggesting reflux, question aspiration pneumonia. 2. Enlarging pleural-based density containing small amounts of gas adjacent to the inflammatory density in the right lower lobe noted above. Seen in the posterior inferior medial right chest centered at the T10-T11 level. Question whether this a chronic inflammatory process within the lung or adjacent pleura. There is no adjacent bony erosion or increasing pleural effusion. Has been present previously of variable size, large larger on 05/09/2023 and decreased on 05/24/2023. - 05/24/23 CTPE: RLL mucus plugging; patchy infiltrates BLL; mild ULP emphysematous changes, central bronchial thickening. IMPRESSION: 1. No change in the right lower lung bronchiectasis with mild to moderate mucous plugging. 2. Mild left basilar subpleural subsegmental atelectasis. 3. Mild underlying emphysema. 4. Air-filled mildly distended proximal esophagus could be a sign of achalasia or presbyesophagus, for example. - 05/07/23 Echocardiogram Conclusion The left ventricle is normal size. There is a speckled pattern to the myocardium suggesting infiltrative disease. Mild diastolic dysfunction is present (impaired relaxation pattern). The left ventricular systolic function is normal. The left ventricular ejection fraction is within the normal range. There is normal LV segmental wall motion. LVEF is 65-70%. The right ventricle is normal size. The right ventricular systolic function is normal. Aortic valve is trileaflet. Mild aortic valve sclerosis. Mild tricuspid regurgitation. No pulmonary hypertension. - 02/18/23 CT Chest w/ c [facility] IMPRESSION: 1. Extensive branching hthe-mi-kof-type micronodules are present in the right lower lobe and right middle lobe, and to a lesser extent in the left lower lobe. This is stable to slightly progressed from the CT performed on 02/05/2023, and compatible with an infectious or inflammatory bronchiolitis. 2. The newly noted 8mm right lower lobe nodule seen on 02/05/2023 has slightly decreased in size to 6 mm on today's study, and is thus presumably related to the infectious/inflammatory bronchiolitis. The newly noted cluster of 4 to 5 mm nodules seen in the right lower lobe on 02/05/2023 is unchanged on today's examination and is likely infectious or inflammatory in etiology as well. A follow-up chest CT is recommended following treatment for infection, to confirm resolution. 3. Additional incidental findings are detailed above. Immunization Administrations COVID-19 04/20/2020 (69 y.o.) 05/19/2020 (69 y.o.) 12/24/2020 (70 y.o.) 10/11/2022 (72 y.o.) INFLUENZA 01/13/2007 (56 y.o.) 01/26/2008 (57 y.o.) 11/17/2013 (63 y.o.) 11/17/2015 (65 y.o.) 10/23/2016 (66 y.o.) 10/30/2017 (67 y.o.) 11/16/2018 (68 y.o.) 11/04/2019 (69 y.o.) 12/01/2020 (70 y.o.) MEASLES, MUMPS, RUBELLA (MMR) 06/22/2013 (62 y.o.) Zoster 10/30/2017 (67 y.o.) 12/29/2017 (67 y.o.) Return in about 3 months (around 04/01/2024). CT 03/23/24 FOLLOW-UP Patient was advised to call with any questions or concerns. If symptoms worsen or fail to improve patient was advised to call for follow up in our office and/or PCP, or go to the Emergency Dept. Benefits, Risks, Contraindications, and Complications of recommended treatments were explained (and to call if prescriptions are not feasible); and the patient stated understanding and agreement to proceed with plan. 12/31/2023: I spent 45 mins: reviewed selected chart notes, results, interpreted tests, imaging today before seeing the pt; interviewing and examining pt; reviewed and discussed w/ pt, questions answered; counselling/educating pt/family/caregiver; ordering meds/tests as appropriate; documenting clinical information in the chart. Some Elements copied from previous notes. I have updated where appropriate, and all reflect current medical decision making from today's encounter. Note: This dictation was generated using voice recognition software. Please excuse any typographical, grammatical or spelling errors that may have occurred using the system Note to patient: The Century Cures Act makes medical notes like these available to patients in the interest of transparency. However, be advised this is a medical document. It is intended as [id number] communication. It is written in medical language and may contain abbreviations or verbiage that are unfamiliar. It may appear blunt or direct. Medical documents are intended to carry relevant information, facts as evident, and the clinical opinion of the practitioner. Yobani Bojorquez MD, MPH, [facility] Pulmonary/Critical Care Medicine [facility] 12/31/2023 documented in this encounter [facility] 12-31-2023 Evaluation + Plan note Associated Problem(s): S/P percutaneous endoscopic gastrostomy (PEG) tube placement Tongue CA; s/p PEG; ff'd by Onc [facility] 12-31-2023 Evaluation + Plan note Associated Problem(s): Aspiration pneumonia of both lungs - admitted 06/13- DC Summary Reviewed: Aspn PNA bilat. - IV atb, steroids; O2 weaned off; continuous tube feeds at home was set-up. DC w/ emp Levaquin, Prednisone taper. Details as noted. CT Chest 06/14/2023 IMPRESSION: 1. Increasing nodular densities right lower lobe most likely inflammatory, correlate for pneumonitis/pneumonia. Prominent gas in the esophagus suggesting reflux, question aspiration pneumonia. 2. Enlarging pleural-based density containing small amounts of gas adjacent to the inflammatory density in the right lower lobe noted above. Seen in the posterior inferior medial right chest centered at the T10-T11 level. Question whether this a chronic inflammatory process within the lung or adjacent pleura. There is no adjacent bony erosion or increasing pleural effusion. Has been present previously of variable size, large larger on 05/09/2023 and decreased on 05/24/2023. - 07/18/23 CT chest w/ c [facility] IMPRESSION: 1. Since 06/14/2023, mild increase in multifocal tree-in-bud opacities, most pronounced within the right lower lobe, and to a lesser degree within the right middle lobe and left lower lobe, compatible with infection/inflammation. The distribution is consistent with aspiration. 2. Persistent distal bronchiolar mucous plugging within the right lower lobe. Dependent secretions are present within the right mainstem bronchus and bronchus intermedius. 3. Unchanged mildly enlarged mediastinal lymph nodes. - 12/22/23 CTPE ([facility] admission - [place]) Impression 1. Exam is positive for pulmonary embolus with filling defect in a right lower lobe posterior segmental pulmonary artery. There is reversal of the normal interventricular septal bowing suggestive of acute right heart strain. 2. Rounded consolidative opacity in the posterior right upper lobe and small cavitary nodule in the superior segment of the right lower lobe are new when compared to 06/14/2023. These are favored to relate to acute infectious/inflammatory nodules/pneumonia with additional patchy areas of infectious/inflammatory infiltrate in the left lower lobe. Short-term follow-up chest CT in 3 months is recommended to exclude developing neoplasm. 3. Right lower lobe bronchiectasis with bronchial wall thickening and areas of mucous plugging consistent with acute bronchitis. Airway secretions are present in the right mainstem bronchus. --- ffup CT 3 mos 03/23/24 - clinically improved; s/p emp Levaquin - aspn precautions; on tube feeds - ffup CT for resolution [facility] 12-31-2023 Evaluation + Plan note Associated Problem(s): Centrilobular emphysema Mild ULP; See COPD txs [facility] 12-31-2023 Evaluation + Plan note Associated Problem(s): COPD (chronic obstructive pulmonary disease) - admitted [facility] 05/24/0707/26/2023 Discharge summary reviewed: PNA, trace hemoptysis - emp Levaquin, Prednisone. Hypoxia - O2 weaned off. AECOPD, HTN, BPH, GERD, Severe PCM malnutrion, s/p PEG, HLD - fmr Smoker; hx of COPD, as per records; was on Albuterol nebs prev. - may have Asthma COPD overlap; PFT 08/2023. - 08/22/2023 PFT: - Spirometry - MODERATELY SEVERE OBSTRUCTION, FEV1/FVC 58%, FEV1 2.03L 58% predicted, FVC 3.53L 74% predicted; w/ SMALL AIRWAY flow limitation. - Significant response to bronchodilator: LARGE response during this testing, as may be seen w/ Asthma, RAD (FEV1 increased 15%). - Lung Volume - HYPERINFLATION, INCREASED TLC 12.03L 167% predicted, RV 8.78L 314% predicted - w/ SEVERE AIR TRAPPING. - Diffusing Capacity: MILDLY REDUCED DLCO 66% predicted, DL/VA 107% (which normalizes when adjusted for lung volume, suggesting probably extraparenchymal cause; e.g., body habitus; may also have emphysema). - Flow Volume Loops - Obstructive pattern; No overt upper airway obstruction pattern. - Consider LAMA/LABA or try triple tx Trelegy, Breztri, or other inhaler regimen, as indic; if feasible; albuterol as needed; use spacer - 12/31/23 cont Albuterol prn, nebs prn; maint inhalers/nebs, if needed - consider Daliresp subseq as indic., as tolerated; if feasible - may also use duonebs; budesonide+formoterol nebs alternatively - patient benefits from nebulizer treatments - Inhaler technique teaching done/reviewed prev.; rinse mouth after inhaler use, especially steroid inhalers - Smoking cessation reinforced: quit - advised OTC Calcium+Vit D, lifestyle recs for osteoporosis prevention, especially if on frequent or long-term systemic steroids (osteoporosis screening/management as per PCP prn, as indic) - monitor PFT prn, as indicated - monitor imaging prn, Chest radiograph as needed (CT Chest as indicated) - Pulmonary rehab program, if feasible; rec to stay active - Influenza, pneumococcal, COVID19, pulmonary vaccines recommended, updated [facility] 12-31-2023 Evaluation + Plan note Associated Problem(s): Malignant neoplasm of base of tongue - hx of Squamous cell CA Tongue, s/p PEG; hx of Dysphagia and Aspn PNA. - ff'd by [facility] Onc Dr. Brandon; ENT Dr. Holder - 03/21/[address] [facility] [address] Brandon: ASSESSMENT / PLAN: 1. 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 He is due to see Dr. Holder. 2. Weight loss. Found to have pharyngoesophageal dysphagia. He has been referred for a PEG. He saw Dr. Payan and they decided to defer on the peg. He reports that his appetite has improved. He is aware the possible CT findings could represent aspiration. Patient was seen by speech therapy on 03/04/2023. No safe diet was recommended the patient and the understand risks of continued feeding. Will continue to follow. 3. Lung cancer screening/Nodule. He quit smoking in 2008 but prior to that had a 3 ppd for [address] scans performed while hospitalized in February. He again was found to have a trach in the right lower lobe. Overall, the lung was suspected to represent pneumonia. I will repeat CAT scans in 3 months to ensure clearing. 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 5. Right Kidney.had MRI dated March 12, 2023. This showed multiple bilateral renal cysts. Predominant Bosniak 1 and Bosniak 2. Some of these lesions are too Femara to fully characterize but there are no overtly suspicious renal masses. - 07/23/[address] [facility] [address] Brandon Reviewed: Since her last visit, patient reports that he has been seen by Dr. Rivas that time to discuss possible vocal cord fillers. Patient reports he is not interested. In addition patient has been seen by speech therapy. This has also been stabilized. He continues to use his feeding tube. -- ASSESSMENT / PLAN: 1. 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 He is due to see Dr. Holder. 2. Weight loss. Patient is status post PEG. Patient is been evaluated by nutrition. He is receiving additional supplementation. He is having more trouble aspiration. 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 Patient has been evaluated by ENT. Patient was seen by Dr. Rivas. They are talking about vocal cord filler. No clear evidence of malignancy. Patient return to see me in 6 months. 3. Increasing nodular densities right lower lobe. This would likely represent aspiration however given the severity we will repeat CT scans in 6 months. 4. Pleural-based density. Previously mentioned pleural-based lesion is no longer seen or mentioned on this CT. I will ask for direct comparison. 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 6. Right Kidney.had MRI dated March 12, 2023. This showed multiple bilateral renal cysts. Predominant Bosniak 1 and Bosniak 2. [facility] 12-31-2023 Evaluation + Plan note Associated Problem(s): Mass of pleura - 07/18/23 CT chest w/ c [facility] IMPRESSION: 1. Since 06/14/2023, mild increase in multifocal tree-in-bud opacities, most pronounced within the right lower lobe, and to a lesser degree within the right middle lobe and left lower lobe, compatible with infection/inflammation. The distribution is consistent with aspiration. 2. Persistent distal bronchiolar mucous plugging within the right lower lobe. Dependent secretions are present within the right mainstem bronchus and bronchus intermedius. 3. Unchanged mildly enlarged mediastinal lymph nodes. - 12/22/23 CTPE ([facility] admission - [place]) Impression 1. Exam is positive for pulmonary embolus with filling defect in a right lower lobe posterior segmental pulmonary artery. There is reversal of the normal interventricular septal bowing suggestive of acute right heart strain. 2. Rounded consolidative opacity in the posterior right upper lobe and small cavitary nodule in the superior segment of the right lower lobe are new when compared to 06/14/2023. These are favored to relate to acute infectious/inflammatory nodules/pneumonia with additional patchy areas of infectious/inflammatory infiltrate in the left lower lobe. Short-term follow-up chest CT in 3 months is recommended to exclude developing neoplasm. 3. Right lower lobe bronchiectasis with bronchial wall thickening and areas of mucous plugging consistent with acute bronchitis. Airway secretions are present in the right mainstem bronchus. --- ffup CT 3 mos 03/23/24 - RLL medial juxtapleural atelectasis, opacity noted in body of report; prob Benign postinflammatory; but w/ smoking hx - ffup CT for stability, resolution - PET, biopsy, prn, as indic - further evaluation, management pending results, clinical course. - Diagnostic (malignant vs benign) and management options discussed at length w/ pt; questions answered; and pt stated understanding and agreement. - also ff'd by [facility] Onc for Prostate CA w/ mets [facility] 12-31-2023 Evaluation + Plan note Associated Problem(s): Multifocal pneumonia - admitted 12/21-08/2023 [facility] DC Summary Reviewed: AMS; PE, PNA; Details as noted. - 12/22/23 CTPE ([facility] admission - [facility]) Impression 1. Exam is positive for pulmonary embolus with filling defect in a right lower lobe posterior segmental pulmonary artery. There is reversal of the normal interventricular septal bowing suggestive of acute right heart strain. 2. Rounded consolidative opacity in the posterior right upper lobe and small cavitary nodule in the superior segment of the right lower lobe are new when compared to 06/14/2023. These are favored to relate to acute infectious/inflammatory nodules/pneumonia with additional patchy areas of infectious/inflammatory infiltrate in the left lower lobe. Short-term follow-up chest CT in 3 months is recommended to exclude developing neoplasm. 3. Right lower lobe bronchiectasis with bronchial wall thickening and areas of mucous plugging consistent with acute bronchitis. Airway secretions are present in the right mainstem bronchus. --- ffup CT 3 mos 03/23/24 - clinically Improved s/p atb - ffup CT for resolution - further evaluation, management pending results, clinical course. [facility] 12-31-2023 Evaluation + Plan note Associated Problem(s): Multiple lung nodules on CT - Surveillance Cts, imaging as per Onc Dr. Brandon [facility]. - 02/18/23 CT Chest w/ c [facility] IMPRESSION: 1. Extensive branching ikbp-dt-dkx-type micronodules are present in the right lower lobe and right middle lobe, and to a lesser extent in the left lower lobe. This is stable to slightly progressed from the CT performed on 02/05/2023, and compatible with an infectious or inflammatory bronchiolitis. 2. The newly noted 8mm right lower lobe nodule seen on 02/05/2023 has slightly decreased in size to 6 mm on today's study, and is thus presumably related to the infectious/inflammatory bronchiolitis. The newly noted cluster of 4 to 5 mm nodules seen in the right lower lobe on 02/05/2023 is unchanged on today's examination and is likely infectious or inflammatory in etiology as well. A follow-up chest CT is recommended following treatment for infection, to confirm resolution. 3. Additional incidental findings are detailed above. - 03/21/[address] [facility] [address] Brandon: ASSESSMENT / PLAN: 1. 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 He is due to see Dr. Holder. 2. Weight loss. Found to have pharyngoesophageal dysphagia. He has been referred for a PEG. He saw Dr. Payan and they decided to defer on the peg. He reports that his appetite has improved. He is aware the possible CT findings could represent aspiration. Patient was seen by speech therapy on 03/04/2023. No safe diet was recommended the patient and the understand risks of continued feeding. Will continue to follow. 3. Lung cancer screening/Nodule. He quit smoking in 2008 but prior to that had a 3 ppd for [address] scans performed while hospitalized in February. He again was found to have a trach in the right lower lobe. Overall, the lung was suspected to represent pneumonia. I will repeat CAT scans in 3 months to ensure clearing. 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 5. Right Kidney.had MRI dated March 12, 2023. This showed multiple bilateral renal cysts. Predominant Bosniak 1 and Bosniak 2. Some of these lesions are too Femara to fully characterize but there are no overtly suspicious renal masses. - 07/18/23 CT chest w/ c [facility] IMPRESSION: 1. Since 06/14/2023, mild increase in multifocal tree-in-bud opacities, most pronounced within the right lower lobe, and to a lesser degree within the right middle lobe and left lower lobe, compatible with infection/inflammation. The distribution is consistent with aspiration. 2. Persistent distal bronchiolar mucous plugging within the right lower lobe. Dependent secretions are present within the right mainstem bronchus and bronchus intermedius. 3. Unchanged mildly enlarged mediastinal lymph nodes. - 07/23/[address] [facility] [address] Brandon Reviewed: Since her last visit, patient reports that he has been seen by Dr. Rivas that time to discuss possible vocal cord fillers. Patient reports he is not interested. In addition patient has been seen by speech therapy. This has also been stabilized. He continues to use his feeding tube. -- ASSESSMENT / PLAN: 1. 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 He is due to see Dr. Holder. 2. Weight loss. Patient is status post PEG. Patient is been evaluated by nutrition. He is receiving additional supplementation. He is having more trouble aspiration. 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 Patient has been evaluated by ENT. Patient was seen by Dr. Rivas. They are talking about vocal cord filler. No clear evidence of malignancy. Patient return to see me in 6 months. 3. Increasing nodular densities right lower lobe. This would likely represent aspiration however given the severity we will repeat CT scans in 6 months. 4. Pleural-based density. Previously mentioned pleural-based lesion is no longer seen or mentioned on this CT. I will ask for direct comparison. 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 6. Right Kidney.had MRI dated March 12, 2023. This showed multiple bilateral renal cysts. Predominant Bosniak 1 and Bosniak 2. - 12/22/23 CTPE ([facility] admission - PE) Impression 1. Exam is positive for pulmonary embolus with filling defect in a right lower lobe posterior segmental pulmonary artery. There is reversal of the normal interventricular septal bowing suggestive of acute right heart strain. 2. Rounded consolidative opacity in the posterior right upper lobe and small cavitary nodule in the superior segment of the right lower lobe are new when compared to 06/14/2023. These are favored to relate to acute infectious/inflammatory nodules/pneumonia with additional patchy areas of infectious/inflammatory infiltrate in the left lower lobe. Short-term follow-up chest CT in 3 months is recommended to exclude developing neoplasm. 3. Right lower lobe bronchiectasis with bronchial wall thickening and areas of mucous plugging consistent with acute bronchitis. Airway secretions are present in the right mainstem bronchus. --- ffup CT 3 mos 03/23/24 - prob Postinflammatory s/p PNA - ffup CT for stability - further evaluation, management pending results, clinical course. - Diagnostic (malignant vs benign) and management options discussed at length w/ pt; questions answered; and pt stated understanding and agreement. [facility] 12-30-2023 Telephone encounter Note Amy is requesting a refill for Requested Prescriptions Pending Prescriptions Disp Refills tamsulosin (FLOMAX) 0.4 mg capsule 15 capsule 0 Sig: Take 1 (one) capsule (0.4 mg total) by mouth daily for 10 days . Last refill: 12/19/23 Last appt: 12/17/23 Upcoming appt (when is it due or is it scheduled): 01/13/24 Please send to [facility] #[id number] - [place], [place] - [address] AT [facility] [employer] [address] [facility] [id number] Follow up: Refill pending for review without additional follow up based on information above. [facility] 12-30-2023 Miscellaneous Notes Amy is requesting a refill for Requested Prescriptions Pending Prescriptions Disp Refills tamsulosin (FLOMAX) 0.4 mg capsule 15 capsule 0 Sig: Take 1 (one) capsule (0.4 mg total) by mouth daily for 10 days . Last refill: 12/19/23 Last appt: 12/17/23 Upcoming appt (when is it due or is it scheduled): 01/13/24 Please send to [facility] #[id number] - [place], [place] - [address] AT [facility] [address] [facility] [id number] Follow up: Refill pending for review without additional follow up based on information above. documented in this encounter [facility] 12-25-2023 Progress note Formatting of t his note is different from the original. Patient Information Patient Name Amy Sun ([id number]) Legal Sex Male Room Bed 3019 01 Patient Demographics Address [address] [place], [place] [id number] (Home) *Preferred* Visitor Information (since admission) Date/Time Visitor Name/Password 12/25/23 0700 12/22/23 1900 Patty. Martinez. Cw: Delmer Active Insurance as of 12/22/2023 Primary Coverage Payor Plan Insurance Group Employer/Plan Group [facility] MANAGED MEDICARE [facility] MEDICARE PPO [id number] Payor Plan Address Payor Plan Phone Number Payor Plan Fax Number Effective Dates [address] [address] 02/17/2022 - None Entered [facility] [id number] Subscriber Name Subscriber Date Member ID [id number] PCP and Center Primary Care Provider Ulices Clark, [facility] Free Standing Emergency Department Emergency Contacts Name Relation Home Work Mobile Christa Sun Spouse [phone] Other Contacts None on File Documents on File Status Date Received Description Documents for the Patient OPG Consent for Treatment Not Received () 06/20/21 Automated Insurance Card Received () 06/20/21 Insurance Card 2 Received () 06/20/21 Photo ID Received 06/20/21 oh dl 2024 HIPAA Notice of Privacy Acknowledged, but patient declined hardcopy () 06/20/21 Consent for Blood Draw Not Received () 06/20/21 UC Consent for Treatment Not Received () 06/20/21 Insurance Card - Pharmacy Received () 07/23/22 New Insurance Card Advance Directives and Living Will No, Does not have 10/15/23 yes copy not on file OPG Medicare ACO Not Received () 06/20/21 Photo Refusal No Camera Photo 06/20/21 OPG Consent for Treatment Verbal Consent Obtained () 07/23/22 HIPAA Notice of Privacy Received () 07/23/22 Consent for Blood Draw Not Received () 07/19/22 UC Consent for Treatment Not Received () 07/19/22 OPG Medicare ACO Received () 07/23/22 Consent for Blood Draw Not Received () 07/23/22 UC Consent for Treatment Not Received () 07/23/22 Automated Insurance Card Not Received () 07/23/22 Consent for Blood Draw Not Received () 07/24/22 UC Consent for Treatment Not Received () 07/24/22 Consent for Blood Draw Not Received () 07/30/22 UC Consent for Treatment Not Received () 07/30/22 Consent for Blood Draw Not Received () 08/07/22 UC Consent for Treatment Not Received () 08/07/22 Consent for Blood Draw Not Received () 08/08/22 UC Consent for Treatment Not Received () 08/08/22 Consent for Blood Draw Not Received () 08/09/22 UC Consent for Treatment Not Received () 08/09/22 Consent for Blood Draw Not Received () 08/14/22 Consent for Treatment Not Received () 08/14/22 Consent for Blood Draw Not Received () 08/16/22 UC Consent for Treatment Not Received () 08/16/22 Consent for Blood Draw Not Received () 08/19/22 UC Consent for Treatment Not Received () 08/19/22 Consent for Blood Draw Not Received () 12/09/22 Consent for Treatment Not Received () 12/09/22 Authorization to Release Protected Health Information 02/14/23 Consent for Blood Draw Not Received () 02/18/23 UC Consent for Treatment Not Received () 02/18/23 Personal Health Documentation Received 02/21/23 [facility] Consent for Blood Draw Not Received () 02/21/23 UC Consent for Treatment Not Received () 02/21/23 Consent for Blood Draw Not Received () 04/19/23 UC Consent for Treatment Not Received () 04/19/23 Consent for Blood Draw Not Received () 05/19/23 UC Consent for Treatment Not Received () 05/19/23 [facility] Consent for Treatment Not Received 09/01/23 HIPAA Notice of Privacy Acknowledged, but patient declined hardcopy 09/16/23 Consent for Blood Draw Not Received () 09/01/23 UC Consent for Treatment Not Received () 09/01/23 OPG Medicare ACO Not Received 09/01/23 Automated Insurance Card Received 12/17/23 PCP$10 Consent for Blood Draw Not Received () 09/16/23 UC Consent for Treatment Not Received () 09/16/23 Consent for Blood Draw Not Received () 09/24/23 UC Consent for Treatment Not Received () 09/24/23 Consent for Blood Draw Not Received () 09/25/23 UC Consent for Treatment Not Received () 09/25/23 OPG Consent for Treatment Signed 09/25/23 OPG Consent for Treatment Signed 09/25/23 Release of Information Documentation Received 09/26/23 09/25/2023 Consent for Blood Draw Not Received () 10/15/23 UC Consent for Treatment Not Received () 10/15/23 Consent for Blood Draw Not Received () 10/22/23 UC Consent for Treatment Not Received () 10/22/23 Consent for Blood Draw Not Received () 10/23/23 UC Consent for Treatment Not Received () 10/23/23 Consent for Blood Draw Received () 10/23/23 Consent for Blood Draw Not Received () 10/24/23 UC Consent for Treatment Not Received () 10/24/23 Consent for Blood Draw Not Received () 11/17/23 UC Consent for Treatment Not Received () 11/17/23 Consent for Blood Draw Not Received () 11/19/23 UC Consent for Treatment Not Received () 11/19/23 Consent for Blood Draw Not Received () 11/21/23 UC Consent for Treatment Not Received () 11/21/23 Consent for Blood Draw Received () 11/21/23 Consent for Blood Draw Not Received () 12/11/23 UC Consent for Treatment Not Received () 12/11/23 Consent for Blood Draw Not Received () 12/12/23 UC Consent for Treatment Not Received () 12/12/23 Insurance Card 2 Not Received 12/17/23 Consent for Blood Draw Not Received () 12/17/23 UC Consent for Treatment Not Received () 12/17/23 Insurance Card - Pharmacy Not Received 12/17/23 Consent for Blood Draw Not Received () 12/18/23 Consent for Treatment Not Received () 12/18/23 Consent for Blood Draw Not Received () 12/19/23 Consent for Treatment Not Received () 12/19/23 Consent for Blood Draw Not Received () 12/22/23 Consent for Treatment Not Received () 12/22/23 Consent for Blood Draw Not Received () 12/23/23 Consent for Treatment Not Received () 12/23/23 Consent for Blood Draw Not Received 12/24/23 Consent for Treatment Not Received 12/24/23 Archived Procedural Result OCT MACULA CIRRUS OU (BOTH EYES) Archived Procedural Result FUNDUS PHOTOS OU (BOTH EYES) Archived Procedural Result OCT MACULA CIRRUS OU (BOTH EYES) Archived Procedural Result OCT ANGIOGRAPHY OU (BOTH EYES) Archived Procedural Result FLUORESCEIN ANGIOGRAPHY OU (BOTH EYES), TRANSIT OS (LEFT EYE) Archived Procedural Result OCT MACULA CIRRUS OU (BOTH EYES) Archived Procedural Result FUNDUS AUTOFLUORESCENCE PHOTO (FAF) OU (BOTH EYES) Archived Procedural Result OCT ANGIOGRAPHY OU (BOTH EYES) Archived Procedural Result FUNDUS PHOTOS OU (BOTH EYES) Archived Procedural Result OCT MACULA CIRRUS OU (BOTH EYES) Archived Procedural Result OCT MACULA CIRRUS OU (BOTH EYES) Archived Procedural Result OCT MACULA CIRRUS OU (BOTH EYES) Archived Procedural Result OCT MACULA CIRRUS OU (BOTH EYES) Archived Procedural Result OCT MACULA CIRRUS OU (BOTH EYES) Archived Procedural Result FUNDUS PHOTOS OU (BOTH EYES) Archived Procedural Result OCT MACULA CIRRUS OU (BOTH EYES) Archived Procedural Result FUNDUS PHOTOS OU (BOTH EYES) Archived Procedural Result FUNDUS PHOTOS OU (BOTH EYES) Archived Procedural Result OCT MACULA CIRRUS OU (BOTH EYES) External Radiology and Imaging EXTERNAL IMAGING External Radiology and Imaging EXTERNAL IMAGING External After Visit Summary After Visit Summary External After Visit Summary After Visit Summary External After Visit Summary After Visit Summary External Questionnaire Notes/Results Only External Immunization Summary 10/23/16 fluzone HD @ [facility] External Medication Rx Clarification request (Testosterone Gel) 02/21/2017 External Medication Testosterone gel tube 1% Rx Clarification 03/03/2017 External Medication testosterone rx destroyed for non pickup 10/06/17 External Immunization Summary high dose flu & shingrix vax @ [facility] 10/30/17 External Immunization Summary shingrix vax @ [facility] 12/29/17 External Other Order ORDERS (OUTSIDE) External Other Order XR FLUORO ESOPHAGUS External Note EAT 10 External After Visit Summary After Visit Summary External After Visit Summary After Visit Summary External After Visit Summary After Visit Summary External After Visit Summary After Visit Summary External After Visit Summary After Visit Summary External After Visit Summary After Visit Summary External After Visit Summary After Visit Summary External After Visit Summary After Visit Summary External After Visit Summary After Visit Summary External After Visit Summary After Visit Summary External After Visit Summary After Visit Summary External After Visit Summary After Visit Summary External After Visit Summary After Visit Summary External After Visit Summary After Visit Summary External Evaluation and Plan life Line Screening External Medication RX picker and packer External Progress Note [facility] External Progress Note [facility] EAR, NOSE & THROAT SURGEONS External Progress Note [facility] External Other Order ORDERS (OUTSIDE) External Progress Note [facility] EAR, NOSE & THROAT External Radiology and Imaging RADIOLOGY (SCANNED) External Medication express scripts-clarification request External Progress Note [facility] External After Visit Summary After Visit Summary External After Visit Summary After Visit Summary External Progress Note [facility] External Progress Note [facility] External Other Order Scanned Document External Misc Clinical Final Discharge Planning Note-ACM External Clinical Consent (Deleted) Legacy Encounter External Misc Clinical Legacy Encounter External Clinical Consent (Deleted) Scanned Document External Insurance Card (Deleted) External Legal Document External Misc Clinical Medicare Inpatient Rights External Misc Clinical Scanned Document External Clinical Consent (Deleted) Scanned Document External Clinical Consent (Deleted) Legacy Encounter External Other Order Scanned Document External Patient Education and Instructions Legacy Encounter External Procedure Note PULMONARY FUNCTION TESTING Archived Procedural Result OCT MACULA CIRRUS OU (BOTH EYES) Archived Procedural Result FUNDUS PHOTOS OU (BOTH EYES) External After Visit Summary After Visit Summary External After Visit Summary After Visit Summary External After Visit Summary After Visit Summary External After Visit Summary After Visit Summary External Progress Note [facility] External Progress Note [facility] External Progress Note [facility] External After Visit Summary After Visit Summary Patient Photo Photo of Patient External Lab EXTERNAL LAB External Lab EXTERNAL LAB External Lab EXTERNAL LAB External Progress Note [facility]ies External Progress Note [facility] External Progress Note [facility] External Progress Note [facility] External Progress Note [facility] External After Visit Summary After Visit Summary External After Visit Summary After Visit Summary External After Visit Summary After Visit Summary External After Visit Summary After Visit Summary External After Visit Summary After Visit Summary External After Visit Summary After Visit Summary External After Visit Summary After Visit Summary External After Visit Summary After Visit Summary External After Visit Summary After Visit Summary External After Visit Summary After Visit Summary External After Visit Summary After Visit Summary External After Visit Summary After Visit Summary External After Visit Summary After Visit Summary External After Visit Summary After Visit Summary External After Visit Summary After Visit Summary External After Visit Summary After Visit Summary External After Visit Summary After Visit Summary External After Visit Summary After Visit Summary External After Visit Summary After Visit Summary External After Visit Summary After Visit Summary External After Visit Summary After Visit Summary External After Visit Summary After Visit Summary External After Visit Summary After Visit Summary External After Visit Summary After Visit Summary External After Visit Summary After Visit Summary External After Visit Summary After Visit Summary External After Visit Summary After Visit Summary External After Visit Summary After Visit Summary External After Visit Summary After Visit Summary External After Visit Summary After Visit Summary External After Visit Summary After Visit Summary External After Visit Summary After Visit Summary External Procedure EXTERNAL PROCEDURE External Procedure EXTERNAL PROCEDURE External After Visit Summary After Visit Summary External After Visit Summary After Visit Summary External After Visit Summary Arranger Assembler Worksheet External After Visit Summary After Visit Summary External After Visit Summary After Visit Summary External After Visit Summary [facility] IP After Visit Summary External After Visit Summary After Visit Summary External After Visit Summary After Visit Summary External After Visit Summary After Visit Summary External After Visit Summary After Visit Summary External Questionnaire MRI QUESTIONNAIRE External Other Order MRI ABDOMEN WITH AND WITHOUT CONTRAST External Questionnaire ADV DIR ASMT External Progress Note [facility] External Cardiology Imaging ECG (SCANNED) External Cardiology Imaging CALIPER MEASUREMENT (SCANNED) External Progress Note [facility] External Note POST DISCHARGE CALLBACK FORM External Note ST Attendance Policy External Questionnaire ST Outpatient Profile External After Visit Summary After Visit Summary External After Visit Summary After Visit Summary External Discharge Instructions Hospital Encounter External After Visit Summary [facility] IP After Visit Summary External Note EAT-10 External Questionnaire ADA External Discharge Instructions SIGNED DISCHARGE INSTRUCTIONS External Other Order ORDERS (SCANNED) External Cardiology Imaging CALIPER MEASUREMENT (SCANNED) External Cardiology Imaging CARDIAC RHYTHM (SCANNED) External Lab PATHOLOGY REPORTS (SCANNED) External After Visit Summary [facility] IP After Visit Summary External After Visit Summary After Visit Summary External After Visit Summary [facility] IP After Visit Summary External Questionnaire ADA External Cardiology Imaging CALIPER MEASUREMENT (SCANNED) External Cardiology Imaging CARDIAC RHYTHM (SCANNED) External Note POST DISCHARGE CALL BACK FORM External Questionnaire ADA External Cardiology Imaging CARDIAC RHYTHM (SCANNED) External Cardiology Imaging CALIPER MEASUREMENT (SCANNED) External After Visit Summary After Visit Summary External After Visit Summary After Visit Summary External After Visit Summary After Visit Summary External After Visit Summary After Visit Summary Archived Procedural Result OCT MACULA CIRRUS OU (BOTH EYES) External After Visit Summary After Visit Summary External After Visit Summary After Visit Summary External After Visit Summary After Visit Summary External After Visit Summary After Visit Summary External After Visit Summary After Visit Summary External After Visit Summary After Visit Summary External After Visit Summary After Visit Summary External After Visit Summary After Visit Summary External After Visit Summary Arranger Assembler Worksheet External After Visit Summary After Visit Summary External After Visit Summary After Visit Summary External After Visit Summary [facility] IP After Visit Summary External After Visit Summary After Visit Summary External After Visit Summary After Visit Summary External After Visit Summary After Visit Summary External After Visit Summary [facility] IP After Visit Summary External After Visit Summary After Visit Summary External After Visit Summary After Visit Summary External Questionnaire ADV DIR ASMT External Cardiology Imaging ECG (SCANNED) External Cardiology Imaging CALIPER MEASUREMENT (SCANNED) External Progress Note [facility] External Questionnaire ADV DIR ASMT External Cardiology Imaging ECG (SCANNED) External Cardiology Imaging CALIPER MEASUREMENT (SCANNED) External Progress Note [facility] External Note POST DISCHARGE CALLBACK FORM External Medication RX Clarification Request [employer] External After Visit Summary After Visit Summary External After Visit Summary After Visit Summary External After Visit Summary After Visit Summary External Progress Note [facility] External Procedure PFT COMPLETE External After Visit Summary After Visit Summary External Patient Reported Information [facility] External After Visit Summary AVS - Outpatient External After Visit Summary Endoscopy After Visit Summary External After Visit Summary [facility] Patient Education Report External After Visit Summary AVS External Legal Document External Endoscopy Imaging Esophagogastroduodenoscopy (EGD) w PEG Tube Removal, w PEG Tube Placement External Endoscopy Imaging Esophagogastroduodenoscopy (EGD) w PEG Tube Removal, w PEG Tube Placement External Endoscopy Imaging Esophagogastroduodenoscopy (EGD) w PEG Tube Removal, w PEG Tube Placement External Endoscopy Imaging Esophagogastroduodenoscopy (EGD) w PEG Tube Removal, w PEG Tube Placement External Endoscopy Imaging Esophagogastroduodenoscopy (EGD) w PEG Tube Removal, w PEG Tube Placement External Endoscopy Imaging Esophagogastroduodenoscopy (EGD) w PEG Tube Removal, w PEG Tube Placement External Endoscopy Imaging Esophagogastroduodenoscopy (EGD) w PEG Tube Removal, w PEG Tube Placement External Cardiology Imaging Hospital Encounter External After Visit Summary After Visit Summary External After Visit Summary Arranger Assembler Worksheet External After Visit Summary After Visit Summary Documents for the Encounter [facility] Pt Rights/Imprt Info/NDS/PLS Not Received 12/22/23 Medicare Rights (CMS) Signed 12/22/23 DICOM Study DICOM Series DICOM Image Admission Information Current Information Attending Provider Admitting Provider Admission Type Admission Status Betzy Davalos MD [phone] Nati Brown MD [phone] Urgent - Unscheduled Visit Confirmed Admission Admission Date/Time Discharge Date/Time Hospital Service Auth/Cert Status 12/22/23 192 Hospitalist Incomplete Hospital Area Unit Room/Bed Referring Provider [facility] INTERMED CARE UNIT 3019/ Amauri Foy DO [phone] Point of Origin Procedure Condition Related To NPP Hospital (Acute Care Facility) HIPAA Accident Date Accident Time Discharge Disposition Discharge Destination [facility] Admission Overview Arrival Date/Time: Admit Date/Time: 12/22/20231925 IP Adm. Date/Time: 12/22/20231937 Admission Type: Urgent - Unscheduled Visit Point of Origin: Hospital (Acute Care Facility) Admit Category: Means of Arrival: Ambulance Primary Service: Hospitalist Secondary Service: N/A Transfer Source: Service Area: [facility] Unit: [facility] Intermediate Care Unit Admit Provider: Nati Brown MD Attending Provider: [facility] Hospitalists, Generic Referring Provider: Amauri Foy DO Admission Complaint Community acquired pneumonia, encephalopathy, hypoxia and acute PE with right heart strain needs ICU placement Hospital Account Name Acct ID Class Status Primary Coverage Amy Sun [id number] Inpatient Open [facility] MANAGED MEDICARE - [facility] MEDICARE PPO Guarantor Account (for Hospital ) Name Relation to Pt Service Area Active? Acct Type Amy Sun Self OHSA Yes Personal/Family Address Phone [address] [place] [address] (H) Coverage Information (for Hospital ) F/O Payor/Plan Precert # [facility] MANAGED MEDICARE/[facility] MEDICARE PPO Subscriber Subscriber # Amy Sun [id number] Address Phone [address] [address] [place] [address] ADT Events Since Admission: Medical Record Numbers [place] Id Number [id number] [facility] Everywhere ID: [id number] [facility] 12-25-2023 Miscellaneous Notes Patient Information Patient Name Amy Sun ([id number]) Legal Sex Male Room Bed 3019 01 Patient Demographics Address [address] [place], [place] [id number] (Home) *Preferred* Visitor Information (since admission) Date/Time Visitor Name/Password 12/25/23 0700 12/22/23 1900 Miriamty. Martinez. Cw: Delmer Active Insurance as of 12/22/2023 Primary Coverage Payor Plan Insurance Group Employer/Plan Group [employer] MANAGED MEDICARE UHC MEDICARE PPO [id number] Payor Plan Address Payor Plan Phone Number Payor Plan Fax Number Effective Dates [address] [address] 02/17/2022 - None Entered [facility] [address] Subscriber Name Subscriber Date Member ID [id number] PCP and Center Primary Care Provider Ulices Clark DO [facility] Free Standing Emergency Department Emergency Contacts Name Relation Home Work Mobile Christa Sun Spouse [phone] Other Contacts None on File Documents on File Status Date Received Description Documents for the Patient OPG Consent for Treatment Not Received () 06/20/21 Automated Insurance Card Received () 06/20/21 Insurance Card 2 Received () 06/20/21 Photo ID Received 06/20/21 oh dl 2024 HIPAA Notice of Privacy Acknowledged, but patient declined hardcopy () 06/20/21 Consent for Blood Draw Not Received () 06/20/21 UC Consent for Treatment Not Received () 06/20/21 Insurance Card - Pharmacy Received () 07/23/22 New Insurance Card Advance Directives and Living Will No, Does not have 10/15/23 yes copy not on file OPG Medicare ACO Not Received () 06/20/21 Photo Refusal No Camera Photo 06/20/21 OPG Consent for Treatment Verbal Consent Obtained () 07/23/22 HIPAA Notice of Privacy Received () 07/23/22 Consent for Blood Draw Not Received () 07/19/22 UC Consent for Treatment Not Received () 07/19/22 OPG Medicare ACO Received () 07/23/22 Consent for Blood Draw Not Received () 07/23/22 UC Consent for Treatment Not Received () 07/23/22 Automated Insurance Card Not Received () 07/23/22 Consent for Blood Draw Not Received () 07/24/22 UC Consent for Treatment Not Received () 07/24/22 Consent for Blood Draw Not Received () 07/30/22 UC Consent for Treatment Not Received () 07/30/22 Consent for Blood Draw Not Received () 08/07/22 UC Consent for Treatment Not Received () 08/07/22 Consent for Blood Draw Not Received () 08/08/22 UC Consent for Treatment Not Received () 08/08/22 Consent for Blood Draw Not Received () 08/09/22 UC Consent for Treatment Not Received () 08/09/22 Consent for Blood Draw Not Received () 08/14/22 UC Consent for Treatment Not Received () 08/14/22 Consent for Blood Draw Not Received () 08/16/22 UC Consent for Treatment Not Received () 08/16/22 Consent for Blood Draw Not Received () 08/19/22 UC Consent for Treatment Not Received () 08/19/22 Consent for Blood Draw Not Received () 12/09/22 UC Consent for Treatment Not Received () 12/09/22 Authorization to Release Protected Health Information 02/14/23 Consent for Blood Draw Not Received () 02/18/23 UC Consent for Treatment Not Received () 02/18/23 Personal Health Documentation Received 02/21/23 [facility] Consent for Blood Draw Not Received () 02/21/23 UC Consent for Treatment Not Received () 02/21/23 Consent for Blood Draw Not Received () 04/19/23 UC Consent for Treatment Not Received () 04/19/23 Consent for Blood Draw Not Received () 05/19/23 UC Consent for Treatment Not Received () 05/19/23 OPG Consent for Treatment Not Received 09/01/23 HIPAA Notice of Privacy Acknowledged, but patient declined hardcopy 09/16/23 Consent for Blood Draw Not Received () 09/01/23 UC Consent for Treatment Not Received () 09/01/23 OPG Medicare ACO Not Received 09/01/23 Automated Insurance Card Received 12/17/23 PCP$10 Consent for Blood Draw Not Received () 09/16/23 UC Consent for Treatment Not Received () 09/16/23 Consent for Blood Draw Not Received () 09/24/23 UC Consent for Treatment Not Received () 09/24/23 Consent for Blood Draw Not Received () 09/25/23 UC Consent for Treatment Not Received () 09/25/23 OPG Consent for Treatment Signed 09/25/23 OPG Consent for Treatment Signed 09/25/23 Release of Information Documentation Received 09/26/23 09/25/2023 Consent for Blood Draw Not Received () 10/15/23 UC Consent for Treatment Not Received () 10/15/23 Consent for Blood Draw Not Received () 10/22/23 UC Consent for Treatment Not Received () 10/22/23 Consent for Blood Draw Not Received () 10/23/23 UC Consent for Treatment Not Received () 10/23/23 Consent for Blood Draw Received () 10/23/23 Consent for Blood Draw Not Received () 10/24/23 UC Consent for Treatment Not Received () 10/24/23 Consent for Blood Draw Not Received () 11/17/23 Consent for Treatment Not Received () 11/17/23 Consent for Blood Draw Not Received () 11/19/23 UC Consent for Treatment Not Received () 11/19/23 Consent for Blood Draw Not Received () 11/21/23 UC Consent for Treatment Not Received () 11/21/23 Consent for Blood Draw Received () 11/21/23 Consent for Blood Draw Not Received () 12/11/23 UC Consent for Treatment Not Received () 12/11/23 Consent for Blood Draw Not Received () 12/12/23 UC Consent for Treatment Not Received () 12/12/23 Insurance Card 2 Not Received 12/17/23 Consent for Blood Draw Not Received () 12/17/23 UC Consent for Treatment Not Received () 12/17/23 Insurance Card - Pharmacy Not Received 12/17/23 Consent for Blood Draw Not Received () 12/18/23 Consent for Treatment Not Received () 12/18/23 Consent for Blood Draw Not Received () 12/19/23 Consent for Treatment Not Received () 12/19/23 Consent for Blood Draw Not Received () 12/22/23 Consent for Treatment Not Received () 12/22/23 Consent for Blood Draw Not Received () 12/23/23 Consent for Treatment Not Received () 12/23/23 Consent for Blood Draw Not Received 12/24/23 Consent for Treatment Not Received 12/24/23 Archived Procedural Result OCT MACULA CIRRUS OU (BOTH EYES) Archived Procedural Result FUNDUS PHOTOS OU (BOTH EYES) Archived Procedural Result OCT MACULA CIRRUS OU (BOTH EYES) Archived Procedural Result OCT ANGIOGRAPHY OU (BOTH EYES) Archived Procedural Result FLUORESCEIN ANGIOGRAPHY OU (BOTH EYES), TRANSIT OS (LEFT EYE) Archived Procedural Result OCT MACULA CIRRUS OU (BOTH EYES) Archived Procedural Result FUNDUS AUTOFLUORESCENCE PHOTO (FAF) OU (BOTH EYES) Archived Procedural Result OCT ANGIOGRAPHY OU (BOTH EYES) Archived Procedural Result FUNDUS PHOTOS OU (BOTH EYES) Archived Procedural Result OCT MACULA CIRRUS OU (BOTH EYES) Archived Procedural Result OCT MACULA CIRRUS OU (BOTH EYES) Archived Procedural Result OCT MACULA CIRRUS OU (BOTH EYES) Archived Procedural Result OCT MACULA CIRRUS OU (BOTH EYES) Archived Procedural Result OCT MACULA CIRRUS OU (BOTH EYES) Archived Procedural Result FUNDUS PHOTOS OU (BOTH EYES) Archived Procedural Result OCT MACULA CIRRUS OU (BOTH EYES) Archived Procedural Result FUNDUS PHOTOS OU (BOTH EYES) Archived Procedural Result FUNDUS PHOTOS OU (BOTH EYES) Archived Procedural Result OCT MACULA CIRRUS OU (BOTH EYES) External Radiology and Imaging EXTERNAL IMAGING External Radiology and Imaging EXTERNAL IMAGING External After Visit Summary After Visit Summary External After Visit Summary After Visit Summary External After Visit Summary After Visit Summary External Questionnaire Notes/Results Only External Immunization Summary 10/23/16 fluzone HD @ [facility] External Medication Rx Clarification request (Testosterone Gel) 02/21/2017 External Medication Testosterone gel tube 1% Rx Clarification 03/03/2017 External Medication testosterone rx destroyed for non pickup 10/06/17 External Immunization Summary [facility]/30/17 External Immunization Summary shingrix vax @ [facility] 12/29/17 External Other Order ORDERS (OUTSIDE) External Other Order XR FLUORO ESOPHAGUS External Note EAT 10 External After Visit Summary After Visit Summary External After Visit Summary After Visit Summary External After Visit Summary After Visit Summary External After Visit Summary After Visit Summary External After Visit Summary After Visit Summary External After Visit Summary After Visit Summary External After Visit Summary After Visit Summary External After Visit Summary After Visit Summary External After Visit Summary After Visit Summary External After Visit Summary After Visit Summary External After Visit Summary After Visit Summary External After Visit Summary After Visit Summary External After Visit Summary After Visit Summary External After Visit Summary After Visit Summary External Evaluation and Plan life Line Screening External Medication RX picker and packer External Progress Note [facility] External Progress Note [facility] EAR, NOSE & THROAT SURGEONS External Progress Note [facility] External Other Order ORDERS (OUTSIDE) External Progress Note [facility] EAR, NOSE & THROAT External Radiology and Imaging RADIOLOGY (SCANNED) External Medication express scripts-clarification request External Progress Note [facility] External After Visit Summary After Visit Summary External After Visit Summary After Visit Summary External Progress Note [facility] External Progress Note [facility] External Other Order Scanned Document External Misc Clinical Final Discharge Planning Note-ACM External Clinical Consent (Deleted) Legacy Encounter External Misc Clinical Legacy Encounter External Clinical Consent (Deleted) Scanned Document External Insurance Card (Deleted) External Legal Document External Misc Clinical Medicare Inpatient Rights External Misc Clinical Scanned Document External Clinical Consent (Deleted) Scanned Document External Clinical Consent (Deleted) Legacy Encounter External Other Order Scanned Document External Patient Education and Instructions Legacy Encounter External Procedure Note PULMONARY FUNCTION TESTING Archived Procedural Result OCT MACULA CIRRUS OU (BOTH EYES) Archived Procedural Result FUNDUS PHOTOS OU (BOTH EYES) External After Visit Summary After Visit Summary External After Visit Summary After Visit Summary External After Visit Summary After Visit Summary External After Visit Summary After Visit Summary External Progress Note [facility] [place] External Progress Note [facility] External Progress Note [facility] External After Visit Summary After Visit Summary Patient Photo Photo of Patient External Lab EXTERNAL LAB External Lab EXTERNAL LAB External Lab EXTERNAL LAB External Progress Note [facility]ies External Progress Note [facility] [place] External Progress Note [facility] [place] External Progress Note [facility] External Progress Note [facility] [place] External After Visit Summary After Visit Summary External After Visit Summary After Visit Summary External After Visit Summary After Visit Summary External After Visit Summary After Visit Summary External After Visit Summary After Visit Summary External After Visit Summary After Visit Summary External After Visit Summary After Visit Summary External After Visit Summary After Visit Summary External After Visit Summary After Visit Summary External After Visit Summary After Visit Summary External After Visit Summary After Visit Summary External After Visit Summary After Visit Summary External After Visit Summary After Visit Summary External After Visit Summary After Visit Summary External After Visit Summary After Visit Summary External After Visit Summary After Visit Summary External After Visit Summary After Visit Summary External After Visit Summary After Visit Summary External After Visit Summary After Visit Summary External After Visit Summary After Visit Summary External After Visit Summary After Visit Summary External After Visit Summary After Visit Summary External After Visit Summary After Visit Summary External After Visit Summary After Visit Summary External After Visit Summary After Visit Summary External After Visit Summary After Visit Summary External After Visit Summary After Visit Summary External After Visit Summary After Visit Summary External After Visit Summary After Visit Summary External After Visit Summary After Visit Summary External After Visit Summary After Visit Summary External After Visit Summary After Visit Summary External Procedure EXTERNAL PROCEDURE External Procedure EXTERNAL PROCEDURE External After Visit Summary After Visit Summary External After Visit Summary After Visit Summary External After Visit Summary Arranger Assembler Worksheet External After Visit Summary After Visit Summary External After Visit Summary After Visit Summary External After Visit Summary [facility] IP After Visit Summary External After Visit Summary After Visit Summary External After Visit Summary After Visit Summary External After Visit Summary After Visit Summary External After Visit Summary After Visit Summary External Questionnaire MRI QUESTIONNAIRE External Other Order MRI ABDOMEN WITH AND WITHOUT CONTRAST External Questionnaire ADV DIR ASMT External Progress Note [facility] External Cardiology Imaging ECG (SCANNED) External Cardiology Imaging CALIPER MEASUREMENT (SCANNED) External Progress Note [facility] External Note POST DISCHARGE CALLBACK FORM External Note ST Attendance Policy External Questionnaire ST Outpatient Profile External After Visit Summary After Visit Summary External After Visit Summary After Visit Summary External Discharge Instructions Hospital Encounter External After Visit Summary [facility] After Visit Summary External Note EAT-10 External Questionnaire ADA External Discharge Instructions SIGNED DISCHARGE INSTRUCTIONS External Other Order ORDERS (SCANNED) External Cardiology Imaging CALIPER MEASUREMENT (SCANNED) External Cardiology Imaging CARDIAC RHYTHM (SCANNED) External Lab PATHOLOGY REPORTS (SCANNED) External After Visit Summary [facility] IP After Visit Summary External After Visit Summary After Visit Summary External After Visit Summary [facility] IP After Visit Summary External Questionnaire ADA External Cardiology Imaging CALIPER MEASUREMENT (SCANNED) External Cardiology Imaging CARDIAC RHYTHM (SCANNED) External Note POST DISCHARGE CALL BACK FORM External Questionnaire ADA External Cardiology Imaging CARDIAC RHYTHM (SCANNED) External Cardiology Imaging CALIPER MEASUREMENT (SCANNED) External After Visit Summary After Visit Summary External After Visit Summary After Visit Summary External After Visit Summary After Visit Summary External After Visit Summary After Visit Summary Archived Procedural Result OCT MACULA CIRRUS OU (BOTH EYES) External After Visit Summary After Visit Summary External After Visit Summary After Visit Summary External After Visit Summary After Visit Summary External After Visit Summary After Visit Summary External After Visit Summary After Visit Summary External After Visit Summary After Visit Summary External After Visit Summary After Visit Summary External After Visit Summary After Visit Summary External After Visit Summary Arranger Assembler Worksheet External After Visit Summary After Visit Summary External After Visit Summary After Visit Summary External After Visit Summary [facility] IP After Visit Summary External After Visit Summary After Visit Summary External After Visit Summary After Visit Summary External After Visit Summary After Visit Summary External After Visit Summary [facility] IP After Visit Summary External After Visit Summary After Visit Summary External After Visit Summary After Visit Summary External Questionnaire ADV DIR ASMT External Cardiology Imaging ECG (SCANNED) External Cardiology Imaging CALIPER MEASUREMENT (SCANNED) External Progress Note [facility] External Questionnaire ADV DIR ASMT External Cardiology Imaging ECG (SCANNED) External Cardiology Imaging CALIPER MEASUREMENT (SCANNED) External Progress Note [facility] External Note POST DISCHARGE CALLBACK FORM External Medication RX Clarification Request [employer] External After Visit Summary After Visit Summary External After Visit Summary After Visit Summary External After Visit Summary After Visit Summary External Progress Note [facility] External Procedure PFT COMPLETE External After Visit Summary After Visit Summary External Patient Reported Information [facility] External After Visit Summary AVS - Outpatient External After Visit Summary Endoscopy After Visit Summary External After Visit Summary [facility] Patient Education Report External After Visit Summary AVS External Legal Document External Endoscopy Imaging Esophagogastroduodenoscopy (EGD) w PEG Tube Removal, w PEG Tube Placement External Endoscopy Imaging Esophagogastroduodenoscopy (EGD) w PEG Tube Removal, w PEG Tube Placement External Endoscopy Imaging Esophagogastroduodenoscopy (EGD) w PEG Tube Removal, w PEG Tube Placement External Endoscopy Imaging Esophagogastroduodenoscopy (EGD) w PEG Tube Removal, w PEG Tube Placement External Endoscopy Imaging Esophagogastroduodenoscopy (EGD) w PEG Tube Removal, w PEG Tube Placement External Endoscopy Imaging Esophagogastroduodenoscopy (EGD) w PEG Tube Removal, w PEG Tube Placement External Endoscopy Imaging Esophagogastroduodenoscopy (EGD) w PEG Tube Removal, w PEG Tube Placement External Cardiology Imaging Hospital Encounter External After Visit Summary After Visit Summary External After Visit Summary 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 Assembler Worksheet External After Visit Summary After Visit Summary Documents for the Encounter [employer] Pt Rights/Imprt Info/NDS/PLS Not Received 12/22/23 Medicare Rights (CMS) Signed 12/22/23 DICOM Study DICOM Series DICOM Image Admission Information Current Information Attending Provider Admitting Provider Admission Type Admission Status Betzy Davalos MD [phone] Nati Brown MD [phone] Urgent - Unscheduled Visit Confirmed Admission Admission Date/Time Discharge Date/Time Hospital Service Auth/Cert Status 12/22/23 1926 Hospitalist Incomplete Hospital Area Unit Room/Bed Referring Provider [facility] INTERMED CARE UNIT 3019/ Amauri Foy DO [phone] Point of Origin Procedure Condition Related To NPP Hospital (Acute Care Facility) HIPAA Accident Date Accident Time Discharge Disposition Discharge Destination [facility] Admission Overview Arrival Date/Time: Admit Date/Time: 12/22/20231925 IP Adm. Date/Time: 12/22/20231937 Admission Type: Urgent - Unscheduled Visit Point of Origin: Hospital (Acute Care Facility) Admit Category: Means of Arrival: Ambulance Primary Service: Hospitalist Secondary Service: N/A Transfer Source: Service Area: [facility] Unit: [facility] Intermediate Care Unit Admit Provider: Nati Brown MD Attending Provider: [facility] Hospitalists, Generic Referring Provider: Amauri Foy DO Admission Complaint Community acquired pneumonia, encephalopathy, hypoxia and acute PE with right heart strain needs ICU placement Hospital Account Name Acct ID Class Status Primary Coverage Amy Sun [id number] Inpatient Open [facility] MANAGED MEDICARE - [facility] MEDICARE PPO Guarantor Account (for Hospital ) Name Relation to Pt Service Area Active? Acct Type Amy Sun Self OHSA Yes Personal/Family Address Phone [facility] [place] [phone] (R) Coverage Information (for Hospital ) F/O Payor/Plan Precert # [facility] MANAGED MEDICARE/[facility] MEDICARE PPO Subscriber Subscriber # Amy Sun [id number] Address Phone [address] [address] [place] [address] ADT Events Since Admission: Medical Record Numbers [place] Id Number [id number] [facility] [id number] [employer] Bundle Lung Expansion Indications: Not applicable Levels: Not applicable Airway Clearance Indications: History of mucus producing disease and Evidence of retained secretions Levels: Level 2 Criteria : Compromised respiratory status with Evidence of retained airway secretions Management : Supervised vibratory PEP 2 times daily Chest physiotherapy 4 times a day and Q2 PRN ineffective cough or retained secretions Monica Patten RRT Problem: Actual or potential alteration in health Goal: Absence of healthcare acquired conditions Outcome: Partially Met Goal: Knowledge of Interdisciplinary Plan of Care Outcome: Partially Met Goal: Knowledge of Enviroment Outcome: Partially Met Problem: Pressure Injury, Risk of Goal: Absence of pressure injury Outcome: Partially Met No right heart strain noted on echocardiogram. Full report below. Please see Dr. Bridges's full consultation note. No further recommendations from a cardiovascular standpoint. Echocardiogram 12/23/2023 Summary 1. Left ventricular systolic function is normal with an ejection fraction by Biplane Method of Discs of 68 %. 2. Right ventricular size and systolic function are normal. 3. The left ventricular diastolic function is normal. 4. No hemodynamically significant valvular disease. 5. There is no pulmonary hypertension, estimated right ventricle systolic pressure is 33 mmHg. Cardiology will sign off at this time. Please feel free to reach out to us if further questions or concerns arise. Amparo Ho, MSN, BUS TROLLEY AND TAXI INSTRUCTOR, SECURITY GUARD DISPATCHER-C, LOSS PREVENTION AGENT, ECG-BC General Cardiology [facility] Pt and family refused bed alarms. Call light and side table within reach. [employer] Bundle Lung Expansion Indications: Not applicable Levels: Not applicable Airway Clearance Indications: History of mucus producing disease and Evidence of retained secretions Levels: Level 2 Criteria : Compromised respiratory status with Reduced secretion clearance and Evidence of retained airway secretions Management : Supervised vibratory PEP 2 times daily Chest physiotherapy 4 times a day and Q2 PRN ineffective cough or retained secretions Kia Guidry, ANAND [employer] Bundle Lung Expansion Indications: Not applicable Levels: Not applicable Airway Clearance Indications: History of mucus producing disease and Evidence of retained secretions Levels: Level 2 Criteria : Compromised respiratory status with Ineffective or weak cough Management : Supervised vibratory PEP 2 times daily Chest physiotherapy 4 times a day and Q2 PRN ineffective cough or retained secretions Kia Guidry RRT Problem: Actual or potential alteration in health Goal: Absence of healthcare acquired conditions Outcome: Not Met Goal: Knowledge of Interdisciplinary Plan of Care Outcome: Not Met Goal: Knowledge of Enviroment Outcome: Not Met Problem: Pressure Injury, Risk of Goal: Absence of pressure injury Outcome: Not Met documented in this encounter [facility] 12-25-2023 History of Present illness Narrative 12/25/23 1255 Home Oxygen Evaluation How was the test performed? During exercise Resting Saturation 94 SaO2 During Exercise Saturation 86 SaO2 Patient on Oxygen during testing No Saturation Improved to 94 SaO2 (on 3lpm) Post Exercise Saturation 95 SaO2 Recovery Saturation 97 SaO2 (on 3lpm) DME: Home Oxygen Qualifying Oxygent Saturation Value 86 % Date of Test 12/25/23 Patient Status at Time of Test Two days prior to discharge from to home Is Oxygen Prescribed Greater than 4LPM? No Place of Service Used Patient's Home HME Agency [facility] Patient gets feeding tube supplies with [facility] therefore wants to use them. Spiritual Care Progress Note Completed by: Meg Villasenor Person(s) Present During this Visit: Spouse Time Spent in Direct Patient Care: 15 Narrative: Sign Out Clerk visited the pt while rounding on the unit. Pt appeared to be sleeping comfortably, spouse Christa at bedside. Souse shared that pt would appreciate a visit if time allows. Pt may be discharging home today at some point according to Christa. Spouse appreciative of support. Sign Out Clerk remains available upon request. Patients Response to Pastoral Care: Other (see comment) (Pt sleeping) Planning for Future Visits: PRN, Other (see comment) (Family aware of fur finisher seamstress support) 12/25/23 1000 Visit Background Visit With Spouse Visit By Staff Sign Out Clerk Visit Progression Introduction Visit Requested By Sign Out Clerk Initiated Visit Source Sign Out Clerk Initiated Visit Type Inpatient;Rounding Visit Circumstances and Events Routine Visit Visit Length (minutes) 15 Patient's Response to Pastoral Care Other (see comment) (Pt sleeping) Visit Planning PRN;Other (see comment) (Family aware of fur finisher seamstress support) Spiritual Assessment Not assessed during visit Rastafari Assessment Not assessed during this visit Family assessment provided? Assessed during this visit Family Assessment Relationship to Patient Spouse Affect at Time of Visit Appropriate for the Situation;Calm;Cooperative;Pleasant;[place] pportive Emotions Expressed During Visit Optimistic;Support System Expressed Concerns Regarding Patient Illness Unable to Assess Sources of Hope and Strength Coping Ability;Charlene;Inner Strength;Supportive of One Another;[place] Family / Friend's Support and Participation Active;Strong Grief Assessment Not Observed During this Visit Spiritual Assessment Other (see comments) (Not observed) Interventions - Family / Friend Affirmation;Sign Out Clerk Support Family / Friend Outcomes Expressed Gratitude;Open to Sign Out Clerk Visit Meg Villasenor MA Staff Sign Out Clerk Pastoral Care Department [facility] [phone] On-call Physical Therapy PHYSICAL THERAPY TREATMENT NOTE Skilled Therapy Needs After Discharge Are card cleaner Therapy Services Needed After Discharge: Yes Intensity of card cleaner Therapy: 2-3 days per week Rehab Potential: Good Outcomes Measures Prior Function - Basic Mobility Raw Score: 24 Points Prior Function - Basic Mobility % Impaired: 0% AM-PAC Basic Mobility Raw Score: 18 Points AM-PAC Basic Mobility % Impaired: 40.47% Activity Tolerance Activity Tolerance: (pt on 3L. No changes in VS during transfers or gait) Therapy Precautions General Rehab Precautions: Fall risk Balance Sitting Balance - Static: Stand by assist Standing Balance - Static: Contact guard assist Foam Caster - Standing Static: (none) Bed Mobility Supine to Sit: Stand by assist Sit to Supine: Stand by assist Foam Caster: bedrails Skilled Intervention Provided: monitoring patient response with activity, monitoring patient response with positional changes, monitoring patient vital signs at rest/during/after activity For: efficient movement, midline orientation, necessary precautions Resulting in: improved activity tolerance, improved functional independence, improved performance, improved safety Transfers Sit to Stand: Contact guard assist, Stand by assist Foam Caster: (none) Skilled Intervention Provided: verbal cues, tactile cues, monitoring patient response with activity, monitoring patient response with positional changes, monitoring patient vital signs at rest/during/after activity For: efficient movement, midline orientation, necessary precautions Resulting in: improved activity tolerance, improved functional independence, improved performance, improved safety Gait/Locomotion Gait Assistance: Minimal assist, Contact guard assist Assistive Device: (none) Distance: 250 Feet (+) Pattern: decreased gifty (steps per minute) Weight Bearing Status: able to maintain Gait Loss(es) of Balance: intermittent Environment/Terrain: open/community environment, multiple distractions Skilled Intervention Provided: verbal cues, tactile cues, monitoring patient response with activity For: efficient movement, gait sequence, gait technique, midline orientation, necessary precautions Resulting in: improved activity tolerance, improved functional independence, improved performance, improved safety Exercise Supine Exercises: pt educated and performs li Buchanan's Skilled Intervention Provided: verbal cues, monitoring patient vital signs before/during/after exercise, monitoring patient response with exercise, patient education For: achieving full ROM as tolerated, muscle activation Resulting in: efficient movement, improved functional strength/ROM Home Living Lives With: Spouse Type of Home: House Home Layout: One level, Able to live on main level with bedroom/bathroom (bedroom in basement) Number of stairs to enter home: 2 Mobility Equipment: Cane, Wheeled walker Prior Level of Function Level of [place] - Transfers/Ambulation/Mobility: Independent with household ambulation (needing cane or walker last several days) For complete objective data, detailed plan of care and patient education refer to: PT Evaluation flowsheet, PT Evaluation and Treatment flowsheet, PT Treatment flowsheet, patient Plan of Care, Plan of Care progress note, and Patient Education. This note stands as the current Discharge Summary upon patient discharge from the hospital or completion of Physical Therapy Plan of Care. Cosigned by Kirk Roca PT at 12/25/2023 3:41 PM EST Nutrition Care Follow up Monitoring and Evaluation: Pt received > 80% of estimated enteral nutrition. Nutrition Diagnosis:Inadequate Oral Intake related to dysphagia as evidenced by PEG tube for feeding. Active Nutrition Intervention: Continue Enteral Nutrition Diet:Continue NPO Tube Feeding: IsoSource 1.5 @ 50 ml/hour. Flush with 150 ml water q 4 hours daily. Provides : 1800 kcal, 81 gm protein, 916 ml water + 900 flush = 1816 total water. Tube Feeding Route:PEG tube Nutrition Goals: Receive greater than 80% of rx'd EN volume Start Date:12/25/2023 Expected End Date:12/29/2023 Nutrition Education: No needs at this time Assessment: Pertinent clinical information: admit with AMS, resolved Height: 6' 1 Current weight: BMI Body mass index is 21.38 kg/m . Weight hx: stable Wt Readings from Last 10 Encounters: 12/22/23 73.5 kg (162 lb 0.6 oz) 12/19/23 74.8 kg (165 lb) 12/18/23 75.3 kg (166 lb) 12/17/23 73.9 kg (163 lb) 11/19/23 75.1 kg (165 lb 8 oz) 10/23/23 73.1 kg (161 lb 1.6 oz) 09/25/23 76.9 kg (169 lb 9.6 oz) 09/16/23 73.5 kg (162 lb) 05/19/23 76.6 kg (168 lb 12.8 oz) 04/19/23 77.1 kg (170 lb) Significant Weight Change: No Current diet order: Diet: NPO Recent intake: EN Barriers to adequate p.o. intakes: Dysphagia Patient/family comments: notes no EN problems Difficulty Chewing or Swallowing: Yes Skin Integrity: Intact GI Function: LBM: 12/19/23 Fluid Status: WNL Physical Appearance: Thin appearance Labs: Recent Labs 12/25/23 0331 NA 149* K 4.1 BICARB 33* CL 104 GLUCOSE 118* BUN 27* CREATININE 0.63* MG 2.3 Recent Labs 12/23/23 0228 12/24/23 0330 12/25/23 0331 GLUCOSE 100* 139* 118* No results found for: HGBA1C Scheduled Meds: apixaban 10 mg Oral BID Followed by [START ON 12/31/2023] apixaban 5 mg Oral BID cefTRIAXone (ROCEPHIN) IVPB 2,000 mg Intravenous Q24H famotidine 20 mg Oral BID sertraline 50 mg Oral Daily tamsulosin 0.4 mg Oral Daily Continuous Infusions: Estimated Energy Needs Total Energy Estimated Needs: 1800 kcal Method for Estimating Needs: @ 25 kcal/kg Total Protein Estimated Needs: 75 gm Method for Estimating Needs: @ 1 gm/kg Desiree Ervin RD Office [phone] [facility] PROGRESS NOTE Assessment and Plan Amy Sun is a 73 y.o. male patient of Ulices Clark DO with history of depression, BPH, erectile dysfunction, inguinal hernia, hypertension, hyperlipidemia, CKD, GERD, constipation, tongue cancer with PEG dependence and prediabetes, presented to [facility] on 12/22/2023 with altered mental status. Right lower lobe posterior segmental pulmonary artery with acute right heart strain. Echo, pending Cardiology consulted, recommendation no indication for intervention, recommended switch to oral anticoagulation Start heparin drip initially, switched to oral Eliquis on 12/23 Doppler studies lower extremity negative for DVT Chest pain nonspecific on 12/23, continue Tylenol and start the patient on oxycodone for moderate to severe pain Acute hypoxemic respiratory failure, current on NC 2 L/min Acute bilateral CAP- right upper lobe and left lower lobe. Acute bronchitis. Right lower lobe bronchiectasis Follow-up chest CT in 3 months is recommended to exclude developing neoplasm Urine Legionella and strep antigen. Negative Start ceftriaxone and azithromycin initially, azithromycin stop on 12/22 Chest PT DuoNeb every 6 as needed Oxygen has dropped since night of 12/23 with findings of fluid overload on chest x-ray Order proBNP Lasix 20 mg IV once Right lower extremity pain Possibly muscle strain Knee x-ray negative for acute findings Venous Doppler negative for DVT Tylenol as needed Tongue cancer status post PEG resection, now on PEG tube for dysphagia Continue with PEG tube for feeding, hold tube feed until cardiology evaluate the patient Dietitian consulted Patient has had intermittent tongue complete since admission, contribution due to IV heparin, continue heparin drip for now as patient does not have any active bleed and risk of thrombosis is higher than risk of bleed, patient and patient okay with the plan BPH Urinary retention Continue Flomax, patient stated that Flomax extended release cannot be pushed through PEG tube and requested Serna catheter be discontinued Serna catheter inserted upon admission, discontinued on 12/23 Depression Anxiety Continue sertraline Resolved acute medical issues Discharge Planning Medically Stable for Discharge Date: 12/24 Patient requires continued hospitalization due to: Respiratory failure, start Eliquis today and monitor for bleed discharge Location: Home Quality Measures DVT Prophylaxis: Eliquis Serna Catheter: absent Code Status full Primary Contact Information Subjective Patient still report intermittent tongue bleeding, oxygen has dropped overnight requires 4 to 5 L currently via nasal cannula, reported also chest pain bilateral severity of pain 4-6 Objective BP (!) 151/94 (BP Location: Right arm, Patient Position: Lying) Pulse 63 Temp 98.1 F (36.7 C) (Axillary) Resp (!) 20 Ht 6' 1 SpO2 94% BMI 21.38 kg/m Physical Examination General Appearance: alert; chronically ill appearing; in no acute distress, very hard of hearing HEENT: Head- normocephalic; Eyes- EOMI, sclera anicteric; Throat- mucous membranes moist Cardiovascular: regular rate and rhythm; normal S1, S2; no murmurs, rubs, clicks or gallops; peripheral edema absent Respiratory: lungs clear to auscultation; without wheezes, rales or rhonchi; on nasal cannula Abdomen: soft, non-tender, non-distended Neurological: oriented x 3; normal speech; no focal findings or movement disorder noted Musculoskeletal: no significant deformity or tenderness to palpation Skin: normal coloration Psych: normal mood and affect [facility] PROGRESS NOTE Assessment and Plan Amy Sun is a 73 y.o. male patient of Ulices Clark DO with history of depression, BPH, erectile dysfunction, inguinal hernia, hypertension, hyperlipidemia, CKD, GERD, constipation, tongue cancer with PEG dependence and prediabetes, presented to [facility] on 12/22/2023 with altered mental status. Right lower lobe posterior segmental pulmonary artery with acute right heart strain. Echo, result pending Cardiology consulted, pending evaluation Start heparin drip Doppler studies lower extremity negative for DVT Acute hypoxemic respiratory failure, current on NC 2 L/min Acute bilateral CAP- right upper lobe and left lower lobe. Acute bronchitis. Right lower lobe bronchiectasis Follow-up chest CT in 3 months is recommended to exclude developing neoplasm Urine Legionella and strep antigen. Start ceftriaxone and azithromycin Chest PT DuoNeb every 6 as needed Tongue cancer status post PEG resection, now on PEG tube for dysphagia Continue with PEG tube for feeding, hold tube feed until cardiology evaluate the patient Dietitian consulted Patient has had intermittent tongue complete since admission, contribution due to IV heparin, continue heparin drip for now as patient does not have any active bleed and risk of thrombosis is higher than risk of bleed, patient and patient okay with the plan BPH Urinary retention Continue Flomax Continue with Serna, void trial before discharge Depression Anxiety Continue sertraline Resolved acute medical issues Discharge Planning Medically Stable for Discharge Date: 12/24 Patient requires continued hospitalization due to: Heparin drip, cardiology evaluation Discharge Location: Home Quality Measures DVT Prophylaxis: heparin gtt Serna Catheter: absent Code Status full Primary Contact Information Subjective Intermittent thank bleed, overall patient feeling better compared to yesterday, no chest pain, still have some shortness of breath Objective BP (!) 145/79 Pulse 63 Temp 98.1 F (36.7 C) (Oral) Resp (!) 23 Ht 6' 1 SpO2 93% BMI 21.38 kg/m Physical Examination General Appearance: alert; chronically ill appearing; in no acute distress, very hard of hearing HEENT: Head- normocephalic; Eyes- EOMI, sclera anicteric; Throat- mucous membranes moist Cardiovascular: regular rate and rhythm; normal S1, S2; no murmurs, rubs, clicks or gallops; peripheral edema absent Respiratory: lungs clear to auscultation; without wheezes, rales or rhonchi; on nasal cannula Abdomen: soft, non-tender, non-distended Neurological: oriented x 3; normal speech; no focal findings or movement disorder noted Musculoskeletal: no significant deformity or tenderness to palpation Skin: normal coloration Psych: normal mood and affect documented in this encounter [facility] 12-25-2023 Hospital course Narrative Images from the original note were not included. [facility] DISCHARGE SUMMARY -- [facility] Amy Sun Admitted: 12/22/2023 Discharge Date: 12/25/23 PCP Handoff Recommended Outpatient Testing Follow-up with PCP Results Pending At Discharge None Clinical Summary Amy Sun is a 73 y.o. male patient of Ulices Clark DO with history of depression, BPH, erectile dysfunction, inguinal hernia, hypertension, hyperlipidemia, CKD, GERD, constipation, tongue cancer with PEG dependence and prediabetes, presented to [facility] on 12/22/2023 with altered mental status. Right lower lobe posterior segmental pulmonary artery with acute right heart strain. Echo, ejection fraction 68%, no pulmonary hypertension Cardiology consulted, recommendation no indication for intervention, recommended switch to oral anticoagulation Start heparin drip initially, switched to oral Eliquis on 12/23 Doppler studies lower extremity negative for DVT Chest pain nonspecific on 12/23, responded to Tylenol and oxycodone Patient pain-free on 12/24 acute hypoxemic respiratory failure, current on NC 2 L/min Acute bilateral CAP- right upper lobe and left lower lobe. Acute bronchitis. Right lower lobe bronchiectasis Follow-up chest CT in 3 months is recommended to exclude developing neoplasm Urine Legionella and strep antigen. Negative Start ceftriaxone and azithromycin initially, azithromycin stop on 12/22, patient discharged on Augmentin for 5 days course Chest PT DuoNeb every 6 as needed Oxygen has dropped since night of 12/23 with findings of fluid overload on chest x-ray proBNP within normal limit Lasix 20 mg IV once on 12/23, 10 mg on 12/24 Patient prior to this hospitalization was evaluated for home oxygen at that time he refused but he is okay to wear oxygen at home if needed RT assessed him for home oxygen Right lower extremity pain Possibly muscle strain Knee x-ray negative for acute findings Venous Doppler negative for DVT Tylenol as needed Tongue cancer status post PEG resection, now on PEG tube for dysphagia Continue with PEG tube for feeding, hold tube feed until cardiology evaluate the patient Dietitian consulted Patient has had intermittent tongue complete since admission, contribution due to IV heparin, continue heparin drip for now as patient does not have any active bleed and risk of thrombosis is higher than risk of bleed, patient and patient okay with the plan No more bleeding on 12/24 BPH Urinary retention Continue Flomax, patient stated that Flomax extended release cannot be pushed through PEG tube and requested Serna catheter be discontinued Serna catheter inserted upon admission, discontinued on 12/23 Patient reported some urinary incontinence on 12/24, multifactorial due to Lasix, status post discontinue Serna catheter, patient to follow-up with urology as outpatient, likely incontinence is temporary Depression Anxiety Continue sertraline Discharge Medications Discharge Medications New Medications Details albuterol 90 mcg/actuation inhaler Inhale 2 (two) puffs every 6 (six) hours as needed for shortness of breath or wheezing . Quantity: 6.7 g amoxicillin-clavulanate 875-125 mg per tablet Commonly known as: AUGMENTIN Take 1 (one) tablet by mouth 2 (two) times a day . Quantity: 10 tablet * apixaban 5 mg Tab Commonly known as: Eliquis Take 2 (two) tablets (10 mg total) by mouth 2 (two) times a day for 6 days . Quantity: 24 tablet * apixaban 5 mg Tab Commonly known as: Eliquis Start taking on: January 01, 2024 Take 1 (one) tablet (5 mg total) by mouth 2 (two) times a day Start: 01/01/24. Quantity: 60 tablet * There are duplicate medications prescribed to the patient Medications To Continue Details famotidine 20 MG tablet Commonly known as: PEPCID Take 1 (one) tablet (20 mg total) by mouth 2 (two) times a day . fluticasone propionate 50 mcg/actuation nasal spray Commonly known as: FLONASE Instill 2 (two) sprays into each nostril daily . Quantity: 16 g Lactobacillus rhamnosus GG 10 billion cell capsule Commonly known as: CULTURELLE Take 1 (one) capsule by mouth daily . metoclopramide 5 MG tablet Commonly known as: REGLAN Take 1 (one) tablet (5 mg total) by mouth 2 (two) times a day Take 30 minutes before meal . sertraline 50 MG tablet Commonly known as: ZOLOFT Take 1 (one) tablet (50 mg total) by mouth daily . Quantity: 90 tablet SUMAtriptan 50 MG tablet Commonly known as: IMITREX Take 1 (one) tablet (50 mg total) by mouth every 2 (two) hours as needed for migraine Max of 200 mg in 24hrs, do not treat more than 3 times a week . Quantity: 10 tablet tamsulosin 0.4 mg capsule Commonly known as: FLOMAX Take 1 (one) capsule (0.4 mg total) by mouth daily for 10 days . Quantity: 10 capsule testosterone 1 % (50 mg/5 gram) Glpk Commonly known as: ANDROGEL Place 25 mg on the skin daily . traMADol 50 mg tablet Commonly known as: ULTRAM Take 1 (one) tablet (50 mg total) by mouth every 4 (four) hours as needed for pain (Days supply per fill: . Stopped Medications melatonin 1 mg Tab Physician(s) Follow Up: OTHER - NOT IN LIST [facility] Address: [address] [place] [address] Servicing Counties: [facility] [phone] Condition at Discharge: Stable Disposition: Home I reviewed discharge recommendations with the patient in person. Patient instructions, including activity, were given to the patient/family at discharge. On day of discharge I saw Amy Sun and spent: > 30 minutes on discharge. Completed by: Betzy Davalos MD on 12/25/23, 12:07 PM documented in this encounter [facility] 12-25-2023 Consult note Associated Order (s): IP CONSULT TO [facility] 12/25/23 10:32 AM - Liaison received a [facility] consult for [facility] needs. Patient's agency choice is [facility] agency: Accepted or Pending Name of agency: Accepted [facility] pharmacy: (name) Referral pending or accepted? For OPAT, TPN, or TF: (list) Has script been sent? (Yes/no) [facility] Accepted TF ([facility]) No - not needed PICC/Midline? PEG in place [facility] created for the following services: yes - SN/PT Verify the demographics (residential address) [address] [place] [address] What is the primary number to reach you? [phone] Who is your family physician/primary care physician? Ulices Clark, DO Do you have a caregiver and/or teachable caregiver (list relationship, name & phone #)? lives with SO Estimated Discharge Date (RONIT): 12/24 If discharge needs change, please reach out to [facility] Liaison assigned on treatment team as hub is not notified of additional consults to [facility] once team is following. Thank you. [facility] 12-25-2023 Consult note Associated Order (s): IP [facility]SULT [facility] 12/25/23 10:32 AM - Liaison received a [facility] consult for [facility] needs. Patient's agency choice is [facility] agency: Accepted or Pending Name of agency: Accepted [facility] pharmacy: (name) Referral pending or accepted? For OPAT, TPN, or TF: (list) Has script been sent? (Yes/no) [facility] Accepted TF ([facility]) No - not needed PICC/Midline? PEG in place [facility] created for the following services: yes - SN/PT Verify the demographics (residential address) [address] [place] [address] What is the primary number to reach you? [phone] Who is your family physician/primary care physician? Ulices Clark, DO Do you have a caregiver and/or teachable caregiver (list relationship, name & phone #)? lives with SO Estimated Discharge Date (RONIT): 12/24 If discharge needs change, please reach out to [facility] Liaison assigned on treatment team as hub is not notified of additional consults to [facility] once team is following. Thank you. Associated Order(s): IP CONSULT TO CARE MANAGEMENT Care Management Consult Note Date: 12/25/2023 Time: 10:14 AM Patient Name: Amy Sun Date of : 1950 Reason for Consult: Discharge Plan: Options Reviewed: List provided Reason for Choice: Patient/Family preference Plan A: Home Health Care Services Plan A : Post Acute Patient Choice 1: [facility] Discharging Transportation Plan: Discharge Plan Status: Assessment completed with patient's spouse at bedside. Possible discharge home today. Patient will have home oxygen evaluation. Spouse is agreeable to home therapy and nursing. Home care list given. [facility] selected. Hub consult placed. Patient has a PEG tube due tongue cancer. Spouse has all needed supplies. Provider is [facility]. [address] [place] [address] arranged with [facility]. Assessment and Background Information: Living Arrangements: Spouse/significant other Caregiver Identified: Yes Caregiver's Name: Christa Support Systems: Family members Assistance Needed: ind prior to Friday Type of Residence: Private residence (one story, 2STE) Prior to Admission Home Care Services: No Current Home Equipment: Cane, Wheeled walker Holistic Assessment Medication adherence problem:: No History of falls in last 6 months:: No Family aware of the patient's advance care planning wishes:: Yes Do you have any cultural/spiritual connections or beliefs that would impact how we deliver your care?: No Chronic pain:: No Physical Therapy PHYSICAL THERAPY EVALUATION and TREATMENT NOTE Dx: PE, resp failure PHYSICAL THERAPY EVALUATION Skilled Therapy Needs After Discharge Are card cleaner Therapy Services Needed After Discharge: Yes Intensity of card cleaner Therapy: 2-3 days per week Rehab Potential: Good Outcomes Measures Prior Function - Basic Mobility Raw Score: 24 Points Prior Function - Basic Mobility % Impaired: 0% AM-PAC Basic Mobility Raw Score: 18 Points AM-PAC Basic Mobility % Impaired: 40.47% Physical Therapy Assessment History: The following factors influence the patient's participation in the PT plan of care: Personal Factors: Limited Baseline Mobility Environmental Factors: Steps to enter home The following co-morbidities (from this admission or prior) influence the patient's participation in this plan of care: in note Number of History elements affecting this patient's PT plan of care: 3 or more Examination of Body Systems: The patient presents with: Musculoskeletal impairments: Functional Endurance Neurologic Impairments: Balance Cardiopulmonary Impairments: Activity Tolerance. These impairments result in limitations of Gait, Functional Transfers, Stair-Climbing, Activity Tolerance. These impairments result in restrictions of Household mobility, Community mobility. Number of Body Systems elements affecting this patient's PT plan of care: 3 or more. Clinical Presentation: The patient's clinical presentation for this PT evaluation is evolving with changing characteristics as evidenced by current PT documentation. Activity Tolerance Activity Tolerance: (mild SOB on 3L, no change in vs) Therapy Precautions General Rehab Precautions: Fall risk Balance Assessment Standing Balance - Static: Contact guard assist Foam Caster - Standing Static: (none) Bed Mobility Supine to Sit: (NA, up to chair pre PT) Transfers Sit to Stand: Contact guard assist Gait/Locomotion Gait Assistance: Minimal assist Assistive Device: (none) Distance: 100 Feet Pattern: decreased gifty (steps per minute) Gait Loss(es) of Balance: intermittent Home Living Lives With: Spouse Type of Home: House Home Layout: One level, Able to live on main level with bedroom/bathroom (bedroom in basement) Number of stairs to enter home: 2 Mobility Equipment: Cane, Wheeled walker Prior Level of Function Level of [place] - Transfers/Ambulation/Mobility: Independent with household ambulation (needing cane or walker last several days) PHYSICAL THERAPY TREATMENT NOTE Gait Training Skilled Intervention Provided: facilitation, monitoring patient response with activity, provided step by step instructions, patient education For: gait technique, gait sequence, fall prevention Therapeutic Exercises Breathing Training: Pursed lip breathing Skilled Intervention Provided: patient education For: breath control/breathing pattern with exercise Additional Treatment Details No chair alarm on pt pre PT 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 Chronic kidney disease (CKD) stage G1/A2, glomerular filtration rate (GFR) equal to or greater than 90 mL/min/1.73 square meter and albuminuria creatinine ratio between 30-299 mg/g COPD (chronic obstructive pulmonary disease) (HCC) ED (erectile dysfunction) Edema leg bilateral GERD (gastroesophageal reflux disease) Hepatic steatosis Hyperlipidemia Hypertension Insomnia Migraine without aura and without status migrainosus, not intractable 09/25/2023 Prediabetes Past Surgical History: Procedure Laterality Date ABDOMINAL SURGERY CATARACT EXTRACTION BILATERAL W/ ANTERIOR VITRECTOMY CATARACT EXTRACTION BILATERAL W/ ANTERIOR VITRECTOMY Bilateral CT COLONOSCOPY 03/25/2022 CT COLONOSCOPY LAPAROSCOPIC INGUINAL HERNIA REPAIR [address] Holder for tongue cancer PEG TUBE PLACEMENT 04/04/2023 VASECTOMY For complete objective data, detailed plan of care and patient education refer to: PT Evaluation flowsheet, PT Evaluation and Treatment flowsheet, PT Treatment flowsheet, patient Plan of Care, Plan of Care progress note, and Patient Education. This note stands as the current Discharge Summary upon patient discharge from the hospital or completion of Physical Therapy Plan. Associated Order(s): IP CONSULT TO CARDIOLOGY General Cardiology Inpatient Cardiology Consult Note Heart & Vascular [facility] 12/22/2023 Lu Bridges MD [address] [place] [id number] CARDIOLOGY CONSULT NOTE Patient Name: Amy Sun Admit Date: [id number] MR #: [id number] : 1950 Physicians: Ulices Clark DO (Family) Kindly asked to evaluate Amy Sun for chief complaint of PE with right heart strain . ASSESSMENT and PLAN: Pulmonary embolism - low risk. Very small, patient with acute pneumonia (? Aspiration pneumonia given history of tongue cancer). No indication for percutaneous therapy. Percutaneous therapy would be indicated for submassive or massive pulmonary embolism with hypotension tachycardia and refractory hypoxia. -Recommend treatment with oral anticoagulation as indicated -Agree with follow-up echocardiogram Reported right heart strain on CT-right ventricle is enlarged on CT, however strain really implies evidence of right ventricular overload which would be measured by troponin or NT proBNP. Both of which were negative. Of course patient may have other reasons for an enlarged right heart on CT, however diagnostic accuracy on CT is a bit limited due to the fact that these are nongated studies The following Vizient risk variables were noted and present on admission: Admitted with these risk variables:Acute Respiratory Failure and Bacterial Pneumonia. Please see assessment and plan for further details. Thank you for this interesting clinical case. We will continue to follow along unless otherwise noted. Lu Bridges MD, [facility] Cardiovascular Medicine [facility] ---- History of Present Illness: This is a 73-year-old gentleman with past medical history hypertension, hyperlipidemia, tongue carcinoma on PEG tube who presented with generalized weakness, myalgias, fevers and chills as well as confusion. During workup he was noted to have a small pulmonary embolism and cardiology was asked to comment on management, and indication for percutaneous therapies. At the time my evaluation patient is resting comfortably, his provides history. Has had overall decline recently, no obvious shortness of breat above Baseline. No exertional chest pain or pressure. Patient is relatively immobile. Objective History: 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 Chronic kidney disease (CKD) stage G1/A2, glomerular filtration rate (GFR) equal to or greater than 90 mL/min/1.73 square meter and albuminuria creatinine ratio between 30-299 mg/g COPD (chronic obstructive pulmonary disease) (HCC) ED (erectile dysfunction) Edema leg bilateral GERD (gastroesophageal reflux disease) Hepatic steatosis Hyperlipidemia Hypertension Insomnia Migraine without aura and without status migrainosus, not intractable 09/25/2023 Prediabetes Past Surgical History: Procedure Laterality Date ABDOMINAL SURGERY CATARACT EXTRACTION BILATERAL W/ ANTERIOR VITRECTOMY CATARACT EXTRACTION BILATERAL W/ ANTERIOR VITRECTOMY Bilateral CT COLONOSCOPY 03/25/2022 CT COLONOSCOPY LAPAROSCOPIC INGUINAL HERNIA REPAIR [address] Holder for tongue cancer PEG TUBE PLACEMENT 04/04/2023 VASECTOMY Family History Problem Relation Age of Onset Stroke Father Heart disease Father Coronary artery disease Father Diabetes Sister Coronary artery disease Brother Social History Socioeconomic History Marital status: Tobacco Use Smoking status: Former Current packs/day: 0.00 Types: Cigarettes Start date: 1960 Quit date: 2009 Years since quittin.8 Passive exposure: Past Smokeless tobacco: Never Vaping Use Vaping status: Never Used Substance and Sexual Activity Alcohol use: Not Currently Drug use: Not Currently Social Drivers of Health Food Insecurity: No Food Insecurity (12/22/2023) Hunger Vital Sign Worried About Running Out of Food in the Last Year: Never true Ran Out of Food in the Last Year: Never true Transportation Needs: No Transportation Needs (12/22/2023) PRAPARE - Transportation Lack of Transportation (Medical): No Lack of Transportation (Non-Medical): No Housing Stability: Low Risk (12/22/2023) Housing Stability Vital Sign Unable to Pay for Housing in the Last Year: No Number of Times Moved in the Last Year: 1 Homeless in the Last Year: No Tobacco & Smokeless: Tobacco Use Smoking status: Former Packs/day: 0.00 Types: Cigarettes Start date: 1960 Quit date: 2009 Years since quittin.8 Passive exposure: Past Smokeless tobacco: Never Allergy Information: I have reviewed the patient's allergies. Patient has no known allergies. Home Medications: Outpatient Medications as of 12/23/2023 Medication Sig famotidine (PEPCID) 20 MG tablet Take 1 (one) tablet (20 mg total) by mouth 2 (two) times a day . sertraline (ZOLOFT) 50 MG tablet Take 1 (one) tablet (50 mg total) by mouth daily . fluticasone propionate (FLONASE) 50 mcg/actuation nasal spray Instill 2 (two) sprays into each nostril daily . Lactobacillus rhamnosus GG (CULTURELLE) 10 billion cell capsule Take 1 (one) capsule by mouth daily . melatonin 1 mg Tab Take 1 (one) tablet (1 mg total) by mouth nightly . (Patient not taking: Reported on 12/18/2023 .) metoclopramide (REGLAN) 5 MG tablet Take 1 (one) tablet (5 mg total) by mouth 2 (two) times a day Take 30 minutes before meal . SUMAtriptan (IMITREX) 50 MG tablet Take 1 (one) tablet (50 mg total) by mouth every 2 (two) hours as needed for migraine Max of 200 mg in 24hrs, do not treat more than 3 times a week . tamsulosin (FLOMAX) 0.4 mg capsule Take 1 (one) capsule (0.4 mg total) by mouth daily for 10 days . testosterone (ANDROGEL) 1 % (50 mg/5 gram) GlPk Place 25 mg on the skin daily . traMADol (ULTRAM) 50 mg tablet Take 1 (one) tablet (50 mg total) by mouth every 4 (four) hours as needed for pain (Days supply per fill: . Inpatient Medications: Current Facility-Administered Medications: acetaminophen (TYLENOL) tablet 650 mg, 650 mg, Oral, Q4H PRN, Nati Brown MD albuterol inhaler 2 puff, 2 puff, Inhalation, Q6H PRN, Nati Brown MD cefTRIAXone (ROCEPHIN) IVPB 2 g (premix), 2,000 mg, Intravenous, Q24H, Last Rate: 100 mL/hr at 12/22/232129, 2,000 mg at 12/22/232129 AND azithromycin (ZITHROMAX) 500 mg in sodium chloride (NS) 0.9% 250 mL (vialmate), 500 mg, Intravenous, Q24H, Nati Brown MD, Last Rate: 250 mL/hr at 12/22/232135, 500 mg at 12/22/232135 famotidine (PEPCID) tablet 20 mg, 20 mg, Oral, BID, Nati Brown MD, 20 mg at 12/23/2339 heparin (porcine) 25,000 unit/250 mL(100 unit/mL) in D5W infusion, 0-70 Units/kg/hr, Intravenous, Continuous, Nati Brown MD, Last Rate: 13.2 mL/hr at 12/23/23 0953, 18 Units/kg/hr at 12/23/23952 heparin bolus from bag 0-10,000 Units, 0-10,000 Units, Intravenous, Continuous PRN, Nati Brown MD ipratropium-albuteroL (DUO-NEB) 0.5-2.5 mg/3 ml nebulizer solution 3 mL, 3 mL, Inhalation, Q6H PRN, Nati Brown MD ondansetron (ZOFRAN-ODT) disintegrating tablet 4 mg, 4 mg, Oral, Q6H PRN OR ondansetron (ZOFRAN) injection 4 mg, 4 mg, Intravenous, Q6H PRN, Nati Brown MD perflutren lipid microspheres (DEFINITY) 0.143 mg/mL solution 0-10 mL of mixture, 0-10 mL of mixture, Intravenous, Once in imaging, Nati Brown MD senna (SENOKOT) tablet 8.6 mg, 1 tablet, Oral, BID PRN, Nati Brown MD sertraline (ZOLOFT) tablet 50 mg, 50 mg, Oral, Daily, Nati Brown MD, 50 mg at 12/23/23 0939 tamsulosin (FLOMAX) 24 hr capsule 0.4 mg, 0.4 mg, Oral, Daily, Nati Brown MD Review of Systems: A 12 system review of systems was performed, pertinent positives and negatives noted in HPI Physical Examination: BP (!) 145/79 Pulse 63 Temp 98.1 F (36.7 C) (Oral) Resp (!) 23 Ht 6' 1 SpO2 93% BMI 21.38 kg/m Constitutional: Male, no acute distress, cachectic Neck: No elevated jugular venous distension Cardiovascular: regular rate and rhythm Pulmonary/Chest: Normal respiratory effort, lung sounds are rhonchorous . Extremities: no edema Neurological: AOx3, moving all extremities normally Skin: Skin is warm and dry, normal hair pattern Psychiatric: Normal mood and affect, appropriate conversation Intake/Output last 3 shifts: I/O last 3 completed shifts: In: - Out: 950 [Urine:950] Laboratory Data Reviewed: Lab Results Component Value Date GLUCOSE 100 (H) 12/23/2023 CALCIUM 8.5 12/23/2023 NA 142 12/23/2023 K 3.8 12/23/2023 CL 101 12/23/2023 BUN 26 (H) 12/23/2023 CREATININE 0.72 (L) 12/23/2023 Results from last 7 days Lab Units 12/23/23 0228 WBC K/mcL 8.49 HGB g/dL 12.1* HCT % 38.3* PLT K/mcL 195 No results found for: HGBA1C Lab Results Component Value Date CHOL 145 10/23/2023 LDLCALC 80 10/23/2023 TRIG 80 10/23/2023 HDL 49 10/23/2023 Lab Results Component Value Date ALBUMIN 4.1 10/23/2023 Imaging: Pertinent studies reviewed and relevant findings noted. Cardiovascular Studies: Reviewed including CT pulmonary angiogram, recent echocardiogram Telemetry: Normal sinus rhythm Associated Order(s): IP CONSULT TO DIETITIAN Nutrition Care Initial Assessment Reason for visit: Physician Consult: PEG tube Nutrition Diagnosis: Inadequate Oral Intake related to dysphagia as evidenced by PEG tube for feeding. Nutrition Intervention Initiate Enteral Nutrition , as medically able Nutrition Prescription: Diet as per SOFTWARE APPLICATION TESTER Tube feeding : IsoSource 1.5 , 250 ml bolus, 5 times daily. Provides 1875 kcal ,85 gm protein, 955 ml water.Flush with 100 ml water before and after each bolus feeding. Total water = 1955 ml. Nutrition Goals: Receive greater than 80% of rx'd EN volume Start Date:12/23/2023 Expected End Date:12/27/2023 Nutrition Education: No needs at this time Assessment: Pertinent clinical information: admit with pneumonia, PE, AMS 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 Chronic kidney disease (CKD) stage G1/A2, glomerular filtration rate (GFR) equal to or greater than 90 mL/min/1.73 square meter and albuminuria creatinine ratio between 30-299 mg/g COPD (chronic obstructive pulmonary disease) (HCC) ED (erectile dysfunction) Edema leg bilateral GERD (gastroesophageal reflux disease) Hepatic steatosis Hyperlipidemia Hypertension Insomnia Migraine without aura and without status migrainosus, not intractable 09/25/2023 Prediabetes Past Surgical History: Procedure Laterality Date ABDOMINAL SURGERY CATARACT EXTRACTION BILATERAL W/ ANTERIOR VITRECTOMY CATARACT EXTRACTION BILATERAL W/ ANTERIOR VITRECTOMY Bilateral CT COLONOSCOPY 03/25/2022 CT COLONOSCOPY LAPAROSCOPIC INGUINAL HERNIA REPAIR [address]. Holder for tongue cancer PEG TUBE PLACEMENT 04/04/2023 VASECTOMY Height: 6' 1 Current weight: BMI Body mass index is 21.38 kg/m . Weight hx: stable Wt Readings from Last 10 Encounters: 12/22/23 73.5 kg (162 lb 0.6 oz) 12/19/23 74.8 kg (165 lb) 12/18/23 75.3 kg (166 lb) 12/17/23 73.9 kg (163 lb) 11/19/23 75.1 kg (165 lb 8 oz) 10/23/23 73.1 kg (161 lb 1.6 oz) 09/25/23 76.9 kg (169 lb 9.6 oz) 09/16/23 73.5 kg (162 lb) 05/19/23 76.6 kg (168 lb 12.8 oz) 04/19/23 77.1 kg (170 lb) Significant Weight Change: No Current diet order: Diet: Regular Recent intake: poor Current intake does not meet estimated needs. Barriers to adequate p.o. intakes: Poor appetite, Dysphagia, and Confusion/AMS Nutrition Related Allergies/Intolerances: No Nutrition Related Allergies noted Cultural or Rastafari Dietary Needs :No Cultural or Rastafari Dietary needs noted Patient/family comments: reports using PEG at home Difficulty Chewing or Swallowing: Yes Skin Integrity: Intact GI Function: WDL Fluid Status: WNL Physical Appearance: Thin appearance Labs: Recent Labs 12/23/238 NA 142 K 3.8 BICARB 33* CL 101 GLUCOSE 100* BUN 26* CREATININE 0.72* Recent Labs 12/23/23227 GLUCOSE 100* No results found for: HGBA1C Home Medications Reviewed: Yes Scheduled Meds: cefTRIAXone (ROCEPHIN) IVPB 2,000 mg Intravenous Q24H And azithromycin 500 mg Intravenous Q24H famotidine 20 mg Oral BID sertraline 50 mg Oral Daily tamsulosin 0.4 mg Oral Daily Continuous Infusions: heparin infusion (weight based dosing) 18 Units/kg/hr (12/23/23 0302) heparin Nutrient Depleting Medications: Histamine-2 Receptor Antagonist (Chronic Use) and Proton Pump Inhibitors (Chronic Use) Estimated Energy Needs Total Energy Estimated Needs: 1800 kcal Method for Estimating Needs: @ 25 kcal/kg Total Protein Estimated Needs: 75 gm Method for Estimating Needs: @ 1 gm/kg Desiree Ervin, RD Office [phone] documented in this encounter [facility] 12-25-2023 Progress note Formatting of t his note might be different from the original. [employer] Bundle Lung Expansion Indications: Not applicable Levels: Not applicable Airway Clearance Indications: History of mucus producing disease and Evidence of retained secretions Levels: Level 2 Criteria : Compromised respiratory status with Evidence of retained airway secretions Management : Supervised vibratory PEP 2 times daily Chest physiotherapy 4 times a day and Q2 PRN ineffective cough or retained secretions Monica Patten RRT [facility] 12-25-2023 Consult note Associated Order (s): IP CONSULT TO CARE MANAGEMENT Care Management Consult Note Date: 12/25/2023 Time: 10:14 AM Patient Name: Amy Sun Date of : 1950 Reason for Consult: Discharge Plan: Options Reviewed: List provided Reason for Choice: Patient/Family preference Plan A: Home Health Care Services Plan A : Post Acute Patient Choice 1: [facility] Discharging Transportation Plan: Discharge Plan Status: Assessment completed with patient's spouse at bedside. Possible discharge home today. Patient will have home oxygen evaluation. Spouse is agreeable to home therapy and nursing. Home care list given. [facility] selected. Hub consult placed. Patient has a PEG tube due tongue cancer. Spouse has all needed supplies. Provider is [facility]. [address] [place] [address] arranged with [facility]. Assessment and Background Information: Living Arrangements: Spouse/significant other Caregiver Identified: Yes Caregiver's Name: Christa Support Systems: Family members Assistance Needed: ind prior to Friday Type of Residence: Private residence (one story, 2STE) Prior to Admission Home Care Services: No Current Home Equipment: Cane, Wheeled walker Holistic Assessment Medication adherence problem:: No History of falls in last 6 months:: No Family aware of the patient's advance care planning wishes:: Yes Do you have any cultural/spiritual connections or beliefs that would impact how we deliver your care?: No Chronic pain:: No [facility] 12-25-2023 Plan of care note Problem: Actual or potential alteration in health Goal: Absence of healthcare acquired conditions Outcome: Partially Met Goal: Knowledge of Interdisciplinary Plan of Care Outcome: Partially Met Goal: Knowledge of Enviroment Outcome: Partially Met Problem: Pressure Injury, Risk of Goal: Absence of pressure injury Outcome: Partially Met [facility] 12-24-2023 Progress note Formatting of t his note might be different from the original. No right heart strain noted on echocardiogram. Full report below. Please see Dr. Bridges's full consultation note. No further recommendations from a cardiovascular standpoint. Echocardiogram 12/23/2023 Summary 1. Left ventricular systolic function is normal with an ejection fraction by Biplane Method of Discs of 68 %. 2. Right ventricular size and systolic function are normal. 3. The left ventricular diastolic function is normal. 4. No hemodynamically significant valvular disease. 5. There is no pulmonary hypertension, estimated right ventricle systolic pressure is 33 mmHg. Cardiology will sign off at this time. Please feel free to reach out to us if further questions or concerns arise. Amparo Ho MSN, BUS [employer] AND [employer]AXI INSTRUCTOR, SECURITY GUARD DISPATCHER-C, LOSS PREVENTION AGENT, ECG-BC General Cardiology [facility] Work Phone: 12-24-2023 Progress note Formatting of t his note might be different from the original. Pt and family refused bed alarms. Call light and side table within reach. [facility] 12-24-2023 Consult note Formatting of th is note is different from the original. Physical Therapy PHYSICAL THERAPY EVALUATION and TREATMENT NOTE Dx: PE, resp failure PHYSICAL THERAPY EVALUATION Skilled Therapy Needs After Discharge Are card cleaner Therapy Services Needed After Discharge: Yes Intensity of card cleaner Therapy: 2-3 days per week Rehab Potential: Good Outcomes Measures Prior Function - Basic Mobility Raw Score: 24 Points Prior Function - Basic Mobility % Impaired: 0% AM-PAC Basic Mobility Raw Score: 18 Points AM-PAC Basic Mobility % Impaired: 40.47% Physical Therapy Assessment History: The following factors influence the patient's participation in the PT plan of care: Personal Factors: Limited Baseline Mobility Environmental Factors: Steps to enter home The following co-morbidities (from this admission or prior) influence the patient's participation in this plan of care: in note Number of History elements affecting this patient's PT plan of care: 3 or more Examination of Body Systems: The patient presents with: Musculoskeletal impairments: Functional Endurance Neurologic Impairments: Balance Cardiopulmonary Impairments: Activity Tolerance. These impairments result in limitations of Gait, Functional Transfers, Stair-Climbing, Activity Tolerance. These impairments result in restrictions of Household mobility, Community mobility. Number of Body Systems elements affecting this patient's PT plan of care: 3 or more. Clinical Presentation: The patient's clinical presentation for this PT evaluation is evolving with changing characteristics as evidenced by current PT documentation. Activity Tolerance Activity Tolerance: (mild SOB on 3L, no change in vs) Therapy Precautions General Rehab Precautions: Fall risk Balance Assessment Standing Balance - Static: Contact guard assist Foam Caster - Standing Static: (none) Bed Mobility Supine to Sit: (NA, up to chair pre PT) Transfers Sit to Stand: Contact guard assist Gait/Locomotion Gait Assistance: Minimal assist Assistive Device: (none) Distance: 100 Feet Pattern: decreased gifty (steps per minute) Gait Loss(es) of Balance: intermittent Home Living Lives With: Spouse Type of Home: House Home Layout: One level, Able to live on main level with bedroom/bathroom (bedroom in basement) Number of stairs to enter home: 2 Mobility Equipment: Cane, Wheeled walker Prior Level of Function Level of [place] - Transfers/Ambulation/Mobility: Independent with household ambulation (needing cane or walker last several days) PHYSICAL THERAPY TREATMENT NOTE Gait Training Skilled Intervention Provided: facilitation, monitoring patient response with activity, provided step by step instructions, patient education For: gait technique, gait sequence, fall prevention Therapeutic Exercises Breathing Training: Pursed lip breathing Skilled Intervention Provided: patient education For: breath control/breathing pattern with exercise Additional Treatment Details No chair alarm on pt pre PT Past Medical History: Diagnosis Date Arthritis Asthma Benign prostatic hyperplasia Cancer (HCC) 2009 Tongue Chronic kidney disease (CKD) stage G1/A2, glomerular filtration rate (GFR) equal to or greater than 90 mL/min/1.73 square meter and albuminuria creatinine ratio between 30-299 mg/g COPD (chronic obstructive pulmonary disease) (HCC) ED (erectile dysfunction) Edema leg bilateral GERD (gastroesophageal reflux disease) Hepatic steatosis Hyperlipidemia Hypertension Insomnia Migraine without aura and without status migrainosus, not intractable 09/25/2023 Prediabetes Past Surgical History: Procedure Laterality Date ABDOMINAL SURGERY CATARACT EXTRACTION BILATERAL W/ ANTERIOR VITRECTOMY CATARACT EXTRACTION BILATERAL W/ ANTERIOR VITRECTOMY Bilateral CT COLONOSCOPY 03/25/2022 CT COLONOSCOPY LAPAROSCOPIC INGUINAL HERNIA REPAIR [address] Holder for tongue cancer PEG TUBE PLACEMENT 04/04/2023 VASECTOMY For complete objective data, detailed plan of care and patient education refer to: PT Evaluation flowsheet, PT Evaluation and Treatment flowsheet, PT Treatment flowsheet, patient Plan of Care, Plan of Care progress note, and Patient Education. This note stands as the current Discharge Summary upon patient discharge from the hospital or completion of Physical Therapy Plan. [facility] 12-24-2023 Progress note Formatting of t his note might be different from the original. [employer] Bundle Lung Expansion Indications: Not applicable Levels: Not applicable Airway Clearance Indications: History of mucus producing disease and Evidence of retained secretions Levels: Level 2 Criteria : Compromised respiratory status with Reduced secretion clearance and Evidence of retained airway secretions Management : Supervised vibratory PEP 2 times daily Chest physiotherapy 4 times a day and Q2 PRN ineffective cough or retained secretions Kia Guidry RRT [facility] 12-23-2023 Progress note Formatting of t his note might be different from the original. [employer] Bundle Lung Expansion Indications: Not applicable Levels: Not applicable Airway Clearance Indications: History of mucus producing disease and Evidence of retained secretions Levels: Level 2 Criteria : Compromised respiratory status with Ineffective or weak cough Management : Supervised vibratory PEP 2 times daily Chest physiotherapy 4 times a day and Q2 PRN ineffective cough or retained secretions Kia Guidry RRT [facility] 12-23-2023 Consult note Associated Order (s): IP CONSULT TO CARDIOLOGY General Cardiology Inpatient Cardiology Consult Note Heart & Vascular [facility] 12/22/2023 Lu Bridges MD [address] [facility] [id number] CARDIOLOGY CONSULT NOTE Patient Name: Amy Sun Admit Date: [id number] MR #: [id number] : 1950 Physicians: Ulices Clark DO (Family) Kindly asked to evaluate Amy Sun for chief complaint of PE with right heart strain . ASSESSMENT and PLAN: Pulmonary embolism - low risk. Very small, patient with acute pneumonia (? Aspiration pneumonia given history of tongue cancer). No indication for percutaneous therapy. Percutaneous therapy would be indicated for submassive or massive pulmonary embolism with hypotension tachycardia and refractory hypoxia. -Recommend treatment with oral anticoagulation as indicated -Agree with follow-up echocardiogram Reported right heart strain on CT-right ventricle is enlarged on CT, however strain really implies evidence of right ventricular overload which would be measured by troponin or NT proBNP. Both of which were negative. Of course patient may have other reasons for an enlarged right heart on CT, however diagnostic accuracy on CT is a bit limited due to the fact that these are nongated studies The following Vizient risk variables were noted and present on admission: Admitted with these risk variables:Acute Respiratory Failure and Bacterial Pneumonia. Please see assessment and plan for further details. Thank you for this interesting clinical case. We will continue to follow along unless otherwise noted. Lu Bridges MD, [facility] Cardiovascular Medicine [facility] ---- History of Present Illness: This is a 73-year-old gentleman with past medical history hypertension, hyperlipidemia, tongue carcinoma on PEG tube who presented with generalized weakness, myalgias, fevers and chills as well as confusion. During workup he was noted to have a small pulmonary embolism and cardiology was asked to comment on management, and indication for percutaneous therapies. At the time my evaluation patient is resting comfortably, his provides history. Has had overall decline recently, no obvious shortness of breat above Baseline. No exertional chest pain or pressure. Patient is relatively immobile. Objective History: Past Medical History: Diagnosis Date Arthritis Asthma Benign prostatic hyperplasia Cancer (HCC) 2009 Tongue Chronic kidney disease (CKD) stage G1/A2, glomerular filtration rate (GFR) equal to or greater than 90 mL/min/1.73 square meter and albuminuria creatinine ratio between 30-299 mg/g COPD (chronic obstructive pulmonary disease) (HCC) ED (erectile dysfunction) Edema leg bilateral GERD (gastroesophageal reflux disease) Hepatic steatosis Hyperlipidemia Hypertension Insomnia Migraine without aura and without status migrainosus, not intractable 09/25/2023 Prediabetes Past Surgical History: Procedure Laterality Date ABDOMINAL SURGERY CATARACT EXTRACTION BILATERAL W/ ANTERIOR VITRECTOMY CATARACT EXTRACTION BILATERAL W/ ANTERIOR VITRECTOMY Bilateral CT COLONOSCOPY 03/25/2022 CT COLONOSCOPY LAPAROSCOPIC INGUINAL HERNIA REPAIR [address] Holder for tongue cancer PEG TUBE PLACEMENT 04/04/2023 VASECTOMY Family History Problem Relation Age of Onset Stroke Father Heart disease Father Coronary artery disease Father Diabetes Sister Coronary artery disease Brother Social History Socioeconomic History Marital status: Tobacco Use Smoking status: Former Current packs/day: 0.00 Types: Cigarettes Start date: 1960 Quit date: 2008 Years since quittin.8 Passive exposure: Past Smokeless tobacco: Never Vaping Use Vaping status: Never Used Substance and Sexual Activity Alcohol use: Not Currently Drug use: Not Currently Social Drivers of Health Food Insecurity: No Food Insecurity (12/22/2023) Hunger Vital Sign Worried About Running Out of Food in the Last Year: Never true Ran Out of Food in the Last Year: Never true Transportation Needs: No Transportation Needs (12/22/2023) PRAPARE - Transportation Lack of Transportation (Medical): No Lack of Transportation (Non-Medical): No Housing Stability: Low Risk (12/22/2023) Housing Stability Vital Sign Unable to Pay for Housing in the Last Year: No Number of Times Moved in the Last Year: 1 Homeless in the Last Year: No Tobacco & Smokeless: Tobacco Use Smoking status: Former Packs/day: 0.00 Types: Cigarettes Start date: 1960 Quit date: 2008 Years since quittin.8 Passive exposure: Past Smokeless tobacco: Never Allergy Information: I have reviewed the patient's allergies. Patient has no known allergies. Home Medications: Outpatient Medications as of 12/23/2023 Medication Sig famotidine (PEPCID) 20 MG tablet Take 1 (one) tablet (20 mg total) by mouth 2 (two) times a day . sertraline (ZOLOFT) 50 MG tablet Take 1 (one) tablet (50 mg total) by mouth daily . fluticasone propionate (FLONASE) 50 mcg/actuation nasal spray Instill 2 (two) sprays into each nostril daily . Lactobacillus rhamnosus GG (CULTURELLE) 10 billion cell capsule Take 1 (one) capsule by mouth daily . melatonin 1 mg Tab Take 1 (one) tablet (1 mg total) by mouth nightly . (Patient not taking: Reported on 12/18/2023 .) metoclopramide (REGLAN) 5 MG tablet Take 1 (one) tablet (5 mg total) by mouth 2 (two) times a day Take 30 minutes before meal . SUMAtriptan (IMITREX) 50 MG tablet Take 1 (one) tablet (50 mg total) by mouth every 2 (two) hours as needed for migraine Max of 200 mg in 24hrs, do not treat more than 3 times a week . tamsulosin (FLOMAX) 0.4 mg capsule Take 1 (one) capsule (0.4 mg total) by mouth daily for 10 days . testosterone (ANDROGEL) 1 % (50 mg/5 gram) GlPk Place 25 mg on the skin daily . traMADol (ULTRAM) 50 mg tablet Take 1 (one) tablet (50 mg total) by mouth every 4 (four) hours as needed for pain (Days supply per fill: . Inpatient Medications: Current Facility-Administered Medications: acetaminophen (TYLENOL) tablet 650 mg, 650 mg, Oral, Q4H PRN, Nati Brown MD albuterol inhaler 2 puff, 2 puff, Inhalation, Q6H PRN, Nati Brown MD cefTRIAXone (ROCEPHIN) IVPB 2 g (premix), 2,000 mg, Intravenous, Q24H, Last Rate: 100 mL/hr at 12/22/232129, 2,000 mg at 12/22/232129 AND azithromycin (ZITHROMAX) 500 mg in sodium chloride (NS) 0.9% 250 mL (vialmate), 500 mg, Intravenous, Q24H, Nati Brown MD, Last Rate: 250 mL/hr at 12/22/232135, 500 mg at 12/22/232135 famotidine (PEPCID) tablet 20 mg, 20 mg, Oral, BID, Nati Brown MD, 20 mg at 12/23/23938 heparin (porcine) 25,000 unit/250 mL(100 unit/mL) in D5W infusion, 0-70 Units/kg/hr, Intravenous, Continuous, Nati Bronw MD, Last Rate: 13.2 mL/hr at 12/23/23952, 18 Units/kg/hr at 12/23/23952 heparin bolus from bag 0-10,000 Units, 0-10,000 Units, Intravenous, Continuous PRN, Nati Brown MD ipratropium-albuteroL (DUO-NEB) 0.5-2.5 mg/3 ml nebulizer solution 3 mL, 3 mL, Inhalation, Q6H PRN, Nati Brown MD ondansetron (ZOFRAN-ODT) disintegrating tablet 4 mg, 4 mg, Oral, Q6H PRN OR ondansetron (ZOFRAN) injection 4 mg, 4 mg, Intravenous, Q6H PRN, Nati Brown MD perflutren lipid microspheres (DEFINITY) 0.143 mg/mL solution 0-10 mL of mixture, 0-10 mL of mixture, Intravenous, Once in imaging, Nati Brown MD senna (SENOKOT) tablet 8.6 mg, 1 tablet, Oral, BID PRN, Nati Brown MD sertraline (ZOLOFT) tablet 50 mg, 50 mg, Oral, Daily, Nati Brown MD, 50 mg at 12/23/23 0939 tamsulosin (FLOMAX) 24 hr capsule 0.4 mg, 0.4 mg, Oral, Daily, Nati Brown MD Review of Systems: A 12 system review of systems was performed, pertinent positives and negatives noted in HPI Physical Examination: BP (!) 145/79 Pulse 63 Temp 98.1 F (36.7 C) (Oral) Resp (!) 23 Ht 6' 1 SpO2 93% BMI 21.38 kg/m Constitutional: Male, no acute distress, cachectic Neck: No elevated jugular venous distension Cardiovascular: regular rate and rhythm Pulmonary/Chest: Normal respiratory effort, lung sounds are rhonchorous . Extremities: no edema Neurological: AOx3, moving all extremities normally Skin: Skin is warm and dry, normal hair pattern Psychiatric: Normal mood and affect, appropriate conversation Intake/Output last 3 shifts: I/O last 3 completed shifts: In: - Out: 950 [Urine:950] Laboratory Data Reviewed: Lab Results Component Value Date GLUCOSE 100 (H) 12/23/2023 CALCIUM 8.5 12/23/2023 NA 142 12/23/2023 K 3.8 12/23/2023 CL 101 12/23/2023 BUN 26 (H) 12/23/2023 CREATININE 0.72 (L) 12/23/2023 Results from last 7 days Lab Units 12/23/23 0228 WBC K/mcL 8.49 HGB g/dL 12.1* HCT % 38.3* PLT K/mcL 195 No results found for: HGBA1C Lab Results Component Value Date CHOL 145 10/23/2023 LDLCALC 80 10/23/2023 TRIG 80 10/23/2023 HDL 49 10/23/2023 Lab Results Component Value Date ALBUMIN 4.1 10/23/2023 Imaging: Pertinent studies reviewed and relevant findings noted. Cardiovascular Studies: Reviewed including CT pulmonary angiogram, recent echocardiogram Telemetry: Normal sinus rhythm [facility] [employer] Work Phone: 12-23-2023 Consult note Associated Order (s): IP CONSULT TO DIETITIAN Nutrition Care Initial Assessment Reason for visit: Physician Consult: PEG tube Nutrition Diagnosis: Inadequate Oral Intake related to dysphagia as evidenced by PEG tube for feeding. Nutrition Intervention Initiate Enteral Nutrition , as medically able Nutrition Prescription: Diet as per SOFTWARE APPLICATION TE[employer] Tube feeding : IsoSource 1.5 , 250 ml bolus, 5 times daily. Provides 1875 kcal ,85 gm protein, 955 ml water.Flush with 100 ml water before and after each bolus feeding. Total water = 1955 ml. Nutrition Goals: Receive greater than 80% of rx'd EN volume Start Date:12/23/2023 Expected End Date:12/27/2023 Nutrition Education: No needs at this time Assessment: Pertinent clinical information: admit with pneumonia, PE, AMS 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 Chronic kidney disease (CKD) stage G1/A2, glomerular filtration rate (GFR) equal to or greater than 90 mL/min/1.73 square meter and albuminuria creatinine ratio between 30-299 mg/g COPD (chronic obstructive pulmonary disease) (HCC) ED (erectile dysfunction) Edema leg bilateral GERD (gastroesophageal reflux disease) Hepatic steatosis Hyperlipidemia Hypertension Insomnia Migraine without aura and without status migrainosus, not intractable 09/25/2023 Prediabetes Past Surgical History: Procedure Laterality Date ABDOMINAL SURGERY CATARACT EXTRACTION BILATERAL W/ ANTERIOR VITRECTOMY CATARACT EXTRACTION BILATERAL W/ ANTERIOR VITRECTOMY Bilateral CT COLONOSCOPY 03/25/2022 CT COLONOSCOPY LAPAROSCOPIC INGUINAL HERNIA REPAIR [address]. Holder for tongue cancer PEG TUBE PLACEMENT 04/04/2023 VASECTOMY Height: 6' 1 Current weight: BMI Body mass index is 21.38 kg/m . Weight hx: stable Wt Readings from Last 10 Encounters: 12/22/23 73.5 kg (162 lb 0.6 oz) 12/19/23 74.8 kg (165 lb) 12/18/23 75.3 kg (166 lb) 12/17/23 73.9 kg (163 lb) 11/19/23 75.1 kg (165 lb 8 oz) 10/23/23 73.1 kg (161 lb 1.6 oz) 09/25/23 76.9 kg (169 lb 9.6 oz) 09/16/23 73.5 kg (162 lb) 05/19/23 76.6 kg (168 lb 12.8 oz) 04/19/23 77.1 kg (170 lb) Significant Weight Change: No Current diet order: Diet: Regular Recent intake: poor Current intake does not meet estimated needs. Barriers to adequate p.o. intakes: Poor appetite, Dysphagia, and Confusion/AMS Nutrition Related Allergies/Intolerances: No Nutrition Related Allergies noted Cultural or Rastafari Dietary Needs :No Cultural or Rastafari Dietary needs noted Patient/family comments: reports using PEG at home Difficulty Chewing or Swallowing: Yes Skin Integrity: Intact GI Function: WDL Fluid Status: WNL Physical Appearance: Thin appearance Labs: Recent Labs 12/23/23227 NA 142 K 3.8 BICARB 33* CL 101 GLUCOSE 100* BUN 26* CREATININE 0.72* Recent Labs 12/23/23227 GLUCOSE 100* No results found for: HGBA1C Home Medications Reviewed: Yes Scheduled Meds: cefTRIAXone (ROCEPHIN) IVPB 2,000 mg Intravenous Q24H And azithromycin 500 mg Intravenous Q24H famotidine 20 mg Oral BID sertraline 50 mg Oral Daily tamsulosin 0.4 mg Oral Daily Continuous Infusions: heparin infusion (weight based dosing) 18 Units/kg/hr (12/23/23 0302) heparin Nutrient Depleting Medications: Histamine-2 Receptor Antagonist (Chronic Use) and Proton Pump Inhibitors (Chronic Use) Estimated Energy Needs Total Energy Estimated Needs: 1800 kcal Method for Estimating Needs: @ 25 kcal/kg Total Protein Estimated Needs: 75 gm Method for Estimating Needs: @ 1 gm/kg Desiree Ervin RD Office [phone] [facility] 12-22-2023 Plan of care note Problem: Actual or potential alteration in health Goal: Absence of healthcare acquired conditions Outcome: Not Met Goal: Knowledge of Interdisciplinary Plan of Care Outcome: Not Met Goal: Knowledge of Enviroment Outcome: Not Met Problem: Pressure Injury, Risk of Goal: Absence of pressure injury Outcome: Not Met [facility] 12-22-2023 History and physical note [facility] HISTORY AND PHYSICAL -- [facility] Patient Name: Amy Sun : 1950 MR #: [id number] Admit Date: 12/22/2023 Physicians: Ulices Clark DO (Family); Amauri Foy (Referring) Amy Sun is a 73 y.o. male patient of Ulices Clark DO with history of depression, BPH, erectile dysfunction, inguinal hernia, hypertension, hyperlipidemia, CKD, GERD, constipation, tongue cancer with PEG dependence and prediabetes, presented to [facility] on 12/22/2023 with altered mental status. Right lower lobe posterior segmental pulmonary artery with acute right heart strain. Echo Cardiology consulted Start heparin drip Doppler studies lower extremity Acute hypoxemic respiratory failure, current on NC 2 L/min Acute bilateral CAP- right upper lobe and left lower lobe. Acute bronchitis. Right lower lobe bronchiectasis Follow-up chest CT in 3 months is recommended to exclude developing neoplasm Urine Legionella and strep antigen. Start ceftriaxone and azithromycin Chest PT DuoNeb every 6 as needed Tongue cancer status post PEG resection, now on PEG tube for dysphagia Continue with PEG tube for feeding Dietitian consulted BPH Urinary retention Continue Flomax Continue with Serna, void trial before discharge Depression Anxiety Continue sertraline Residence prior to admission: house or apartment Was patient transferred from outlying hospital or ED no Quality Measures DVT Prophylaxis: heparin gtt Serna Catheter: present Medication Reconciliation: Verified Admitted with these risk variables:None. Please see assessment and plan for further details. Estimated Date of Discharge greater than 2 midnights Code Status Full Code; unverified; reason patient is confused Chief Complaint altered mental status History of Present Illness A 73-year-old male with past medical history of depression, BPH, erectile dysfunction, inguinal hernia, hypertension, hyperlipidemia, CKD, GERD, constipation, tongue cancer with PEG dependence and prediabetes Presents from [facility] emergency department as a referral for bilateral pneumonia and acute PE. Patient was seen at the same ED at day prior for urinary retention and Serna catheter was placed. Patient has an intermittent episode of confusion and the caregivers were concerned for infection and brought him back. Patient has subjective fevers and chills, but denies chest pain or shortness of breath. No reported nausea, vomiting or abdominal pain. Past Medical History Past Medical History: Diagnosis Date Arthritis Benign prostatic hyperplasia Cancer (HCC) 2008 Tongue Chronic kidney disease (CKD) stage G1/A2, glomerular filtration rate (GFR) equal to or greater than 90 mL/min/1.73 square meter and albuminuria creatinine ratio between 30-299 mg/g ED (erectile dysfunction) Edema leg bilateral GERD (gastroesophageal reflux disease) Hepatic steatosis Hyperlipidemia Hypertension Insomnia Migraine without aura and without status migrainosus, not intractable 09/25/2023 Prediabetes Past Surgical History Past Surgical History: Procedure Laterality Date CATARACT EXTRACTION BILATERAL W/ ANTERIOR VITRECTOMY CT COLONOSCOPY 03/25/2022 CT COLONOSCOPY LAPAROSCOPIC INGUINAL HERNIA REPAIR [address] Holder for tongue cancer PEG TUBE PLACEMENT 04/04/2023 VASECTOMY Family History Family History Problem Relation Age of Onset Stroke Father Heart disease Father Coronary artery disease Father Diabetes Sister Coronary artery disease Brother Social History Social History Tobacco Use Smoking Status Former Current packs/day: 0.00 Types: Cigarettes Start date: 1960 Quit date: 2008 Years since quittin.8 Passive exposure: Past Smokeless Tobacco Never Social History Substance and Sexual Activity Alcohol Use Not Currently Social History Substance and Sexual Activity Drug Use Not Currently Allergy Information I have reviewed the patient's allergies. Patient has no known allergies. Home Medications Home medications were reviewed. Review Of Systems All relevant systems have been reviewed and are negative except as noted in HPI or below Physical Examination There were no vitals taken for this visit. General Appearance: alert; chronically ill appearing; in mild acute distress HEENT: Head- normocephalic; Eyes- EOMI, sclera anicteric; Throat- mucous membranes moist Cardiovascular: regular rate and rhythm; normal S1, S2; no murmurs, rubs, clicks or gallops; peripheral edema absent Respiratory: lungs clear to auscultation; without wheezes, rales or rhonchi; on nasal cannula Abdomen: soft, non-tender, non-distended Neurological: oriented x 1; normal speech; no focal findings or movement disorder noted Musculoskeletal: no significant deformity or tenderness to palpation Skin: normal coloration Psych: normal mood and affect [facility] 12-22-2023 History and physical note [facility] HISTORY AND PHYSICAL -- [facility] Patient Name: Amy Sun : 1950 MR #: [id number] Admit Date: 12/22/2023 Physicians: Ulices Clark DO (Family); Amauri Foy (Referring) Amy Sun is a 73 y.o. male patient of Ulices Clark DO with history of depression, BPH, erectile dysfunction, inguinal hernia, hypertension, hyperlipidemia, CKD, GERD, constipation, tongue cancer with PEG dependence and prediabetes, presented to [facility] on 12/22/2023 with altered mental status. Right lower lobe posterior segmental pulmonary artery with acute right heart strain. Echo Cardiology consulted Start heparin drip Doppler studies lower extremity Acute hypoxemic respiratory failure, current on NC 2 L/min Acute bilateral CAP- right upper lobe and left lower lobe. Acute bronchitis. Right lower lobe bronchiectasis Follow-up chest CT in 3 months is recommended to exclude developing neoplasm Urine Legionella and strep antigen. Start ceftriaxone and azithromycin Chest PT DuoNeb every 6 as needed Tongue cancer status post PEG resection, now on PEG tube for dysphagia Continue with PEG tube for feeding Dietitian consulted BPH Urinary retention Continue Flomax Continue with Serna, void trial before discharge Depression Anxiety Continue sertraline Residence prior to admission: house or apartment Was patient transferred from outlying hospital or ED no Quality Measures DVT Prophylaxis: heparin gtt Serna Catheter: present Medication Reconciliation: Verified Admitted with these risk variables:None. Please see assessment and plan for further details. Estimated Date of Discharge greater than 2 midnights Code Status Full Code; unverified; reason patient is confused Chief Complaint altered mental status History of Present Illness A 73-year-old male with past medical history of depression, BPH, erectile dysfunction, inguinal hernia, hypertension, hyperlipidemia, CKD, GERD, constipation, tongue cancer with PEG dependence and prediabetes Presents from [facility] emergency department as a referral for bilateral pneumonia and acute PE. Patient was seen at the same ED at day prior for urinary retention and Serna catheter was placed. Patient has an intermittent episode of confusion and the caregivers were concerned for infection and brought him back. Patient has subjective fevers and chills, but denies chest pain or shortness of breath. No reported nausea, vomiting or abdominal pain. Past Medical History Past Medical History: Diagnosis Date Arthritis Benign prostatic hyperplasia Cancer (HCC) 2008 Tongue Chronic kidney disease (CKD) stage G1/A2, glomerular filtration rate (GFR) equal to or greater than 90 mL/min/1.73 square meter and albuminuria creatinine ratio between 30-299 mg/g ED (erectile dysfunction) Edema leg bilateral GERD (gastroesophageal reflux disease) Hepatic steatosis Hyperlipidemia Hypertension Insomnia Migraine without aura and without status migrainosus, not intractable 09/25/2023 Prediabetes Past Surgical History Past Surgical History: Procedure Laterality Date CATARACT EXTRACTION BILATERAL W/ ANTERIOR VITRECTOMY CT COLONOSCOPY 03/25/2022 CT COLONOSCOPY LAPAROSCOPIC INGUINAL HERNIA REPAIR [address] Holder for tongue cancer PEG TUBE PLACEMENT 04/04/2023 VASECTOMY Family History Family History Problem Relation Age of Onset Stroke Father Heart disease Father Coronary artery disease Father Diabetes Sister Coronary artery disease Brother Social History Social History Tobacco Use Smoking Status Former Current packs/day: 0.00 Types: Cigarettes Start date: 1960 Quit date: 2008 Years since quittin.8 Passive exposure: Past Smokeless Tobacco Never Social History Substance and Sexual Activity Alcohol Use Not Currently Social History Substance and Sexual Activity Drug Use Not Currently Allergy Information I have reviewed the patient's allergies. Patient has no known allergies. Home Medications Home medications were reviewed. Review Of Systems All relevant systems have been reviewed and are negative except as noted in HPI or below Physical Examination There were no vitals taken for this visit. General Appearance: alert; chronically ill appearing; in mild acute distress HEENT: Head- normocephalic; Eyes- EOMI, sclera anicteric; Throat- mucous membranes moist Cardiovascular: regular rate and rhythm; normal S1, S2; no murmurs, rubs, clicks or gallops; peripheral edema absent Respiratory: lungs clear to auscultation; without wheezes, rales or rhonchi; on nasal cannula Abdomen: soft, non-tender, non-distended Neurological: oriented x 1; normal speech; no focal findings or movement disorder noted Musculoskeletal: no significant deformity or tenderness to palpation Skin: normal coloration Psych: normal mood and affect documented in this encounter [facility] 12-18-2023 History of Present illness Narrative Images from the original note were not included. [facility] PATIENT: Amy Sun DATE / TIME: 12/18/23 11:02 AM POS: Office AGE: 73 y.o. : 1950 RACE: [1] SEX: male PCP: Ulices Clark DO REFERRAL: Ulices Clark DO HISTORY OF PRESENT ILLNESS CC / Reason for Consult: Left inguinal hernia HPI: 72-year-old male with extensive past medical history including tongue cancer s/p resection, and PEG tube placement for dysphagia, was referred to our office for a left inguinal hernia. Patient reports that he had the hernia for the last 6 months at least. He is always able to reduce it, and denies any overlying skin changes or pain. It does cause him occasional discomfort. Denies any obstructive symptoms. He does have history of an open right inguinal hernia repair. He also reports that he is admitted to the hospital several times a year for pneumonia, and has great difficulty with IV access, and was recommended to have port placement for IV access. PAST MEDICAL / SURGICAL HISTORY Past Medical History: Diagnosis Date Arthritis Benign prostatic hyperplasia Cancer (HCC) 2008 Tongue Chronic kidney disease (CKD) stage G1/A2, glomerular filtration rate (GFR) equal to or greater than 90 mL/min/1.73 square meter and albuminuria creatinine ratio between 30-299 mg/g ED (erectile dysfunction) Edema leg bilateral GERD (gastroesophageal reflux disease) Hepatic steatosis Hyperlipidemia Hypertension Insomnia Migraine without aura and without status migrainosus, not intractable 09/25/2023 Prediabetes Past Surgical History: Procedure Laterality Date CATARACT EXTRACTION BILATERAL W/ ANTERIOR VITRECTOMY CT COLONOSCOPY 03/25/2022 CT COLONOSCOPY LAPAROSCOPIC INGUINAL HERNIA REPAIR [address] Holder for tongue cancer PEG TUBE PLACEMENT 04/04/2023 VASECTOMY FAMILY HISTORY Family History Problem Relation Age of Onset Stroke Father Heart disease Father Coronary artery disease Father Diabetes Sister Coronary artery disease Brother SOCIAL HISTORY Data Unavailable Social History Tobacco Use Smoking Status Former Current packs/day: 0.00 Types: Cigarettes Start date: 1960 Quit date: 2008 Years since quittin.8 Passive exposure: Past Smokeless Tobacco Never Social History Substance and Sexual Activity Alcohol Use Not Currently Social History Substance and Sexual Activity Drug Use Not Currently MEDICATIONS: Patient has a current medication list which includes the following prescription(s): famotidine, fluticasone propionate, lactobacillus rhamnosus gg, metoclopramide, sertraline, sumatriptan, testosterone, tramadol, melatonin, pantoprazole, and valsartan. ALLERGIES: No Known Allergies REVIEW OF SYSTEMS Pertinent positives and negatives are listed in HPI, PMSH, SH, ALL above and in Details below. [] The following systems were reviewed: [x] Const (fevers, chills, wt. loss, fatigue) [x] CV (HTN, CP, GREEN, edema, DVT) [x] Resp (SOB, pleurisy, asthma, apnea) [x] GI (N, V, D, C, M, abd pain, appetite) [x] Musc (back pain, joint stiffness, gout) [x] Neuro (seizures, syncope, paralysis) [x] Psych (depression, anxiety) [x] Endo (hot/cold intol, polyuria[DM]) [x] Hem/Lymph (Anemia, LA, bleeding) [x] Allerg/Immun (seasonal, immuniz) [x] Eyes (diplopia, cataracts) [x] ENT/mouth (dysphagia, epistaxis) [x] (dysuria, hematuria) [x] Skin/Breast (moles, rash, lumps, nipple changes) [x] Able to walk up a flight of steps without difficulty Details: PHYSICAL EXAM PACU Vitals 12/18/23 1014 BP: 119/84 Pulse: 81 SpO2: 95% Body mass index is 22.51 kg/m . Physical Exam Vitals reviewed. Constitutional: Appearance: Normal appearance. HENT: Head: Normocephalic and atraumatic. Eyes: Extraocular Movements: Extraocular movements intact. Cardiovascular: Rate and Rhythm: Normal rate and regular rhythm. Pulmonary: Effort: Pulmonary effort is normal. No respiratory distress. Breath sounds: Wheezing present. Chest: Comments: Well-healed scar from old port site on the left chest wall, as well as a well-healed surgical scar on the neck Abdominal: General: There is no distension. Palpations: Abdomen is soft. Tenderness: There is no abdominal tenderness. There is no guarding or rebound. Hernia: A hernia is present. Hernia is present in the left inguinal area. Comments: PEG tube in place with no surrounding erythema, or induration Left inguinal hernia, easily reducible, with no overlying skin changes Musculoskeletal: General: Normal range of motion. Skin: General: Skin is warm and dry. Neurological: General: No focal deficit present. Mental Status: He is alert and oriented to person, place, and time. Psychiatric: Mood and Affect: Mood normal. Behavior: Behavior normal. ASSESSMENT AND PLAN: 73-year-old male with extensive past medical history including tongue cancer, and PEG tube placement, here with complaints of a nonincarcerated, nonstrangulated left inguinal hernia Will plan for robotic assisted laparoscopic left inguinal hernia repair with mesh, possible bilateral, possible open, and port placement. We discussed extensively with the patient the risk and benefits of the procedures, including but not limited to: Infection requiring mesh or port explantation, bleeding, damage to surrounding structures such as the spermatic cord leading to testicular atrophy, chronic pain from nerve injury, and pneumothorax from port placement. Patient demonstrates full understanding, and agrees with the plan I have reached out to Dr. Clark to see if she agrees with port placement for this patient Thank you for the privilege of allowing me to participate in the care of Amy Sun. ICD: Left inguinal hernia [K40.90] documented in this encounter [facility] 12-17-2023 Evaluation + Plan note Associated Problem(s): Constipation Intermittent constipation. - Check with african history professor about using probiotic capsule - Increasing physical activity will help - Adequate hydration [facility] 12-17-2023 Miscellaneous Notes Associated Problem(s): Constipation Intermittent constipation. - Check with african history professor about using probiotic capsule - Increasing physical activity will help - Adequate hydration Associated Problem(s): Anxiety and depression Previously on sertraline 25 mg daily, taking inconsistently due to G-tube issues and not much benefit. - Restart sertraline at 50 mg daily. - Follow up in 3 months or sooner if needed Associated Problem(s): Left inguinal hernia Chronic, worsening in frequency of symptomatic pressure and discomfort. Easily reducible. ER precautions discussed, worsening pain, not reducible, discoloration, go to ER. - Refer to general surgery for evaluation for surgical repair Associated Problem(s): Difficulty sleeping Reversed sleep cycle, sleeping more during the day and not well at night. He has been using antihistamine for sleep at night, which is working well but is not recommended for seniors due to anticholinergic effects. Risk of anticholinergic side effects discussed, balance risk/benefit of being able to sleep. - May use alkaseltzer antihistamine nightly temporarily until sleep is improved, with much caution for anticholinergic side effects. - Work on staying awake during the day, avoid napping - More activity during the day, get outside, interact with family and friends - May use nightly melatonin 1 mg documented in this encounter [facility] 12-17-2023 Evaluation + Plan note Associated Problem(s): Anxiety and depression Previously on sertraline 25 mg daily, taking inconsistently due to G-tube issues and not much benefit. - Restart sertraline at 50 mg daily. - Follow up in 3 months or sooner if needed [facility] 12-17-2023 Evaluation + Plan note Associated Problem(s): Left inguinal hernia Chronic, worsening in frequency of symptomatic pressure and discomfort. Easily reducible. ER precautions discussed, worsening pain, not reducible, discoloration, go to ER. - Refer to general surgery for evaluation for surgical repair [facility] 12-17-2023 Evaluation + Plan note Associated Problem(s): Difficulty sleeping Reversed sleep cycle, sleeping more during the day and not well at night. He has been using antihistamine for sleep at night, which is working well but is not recommended for seniors due to anticholinergic effects. Risk of anticholinergic side effects discussed, balance risk/benefit of being able to sleep. - May use alkaseltzer antihistamine nightly temporarily until sleep is improved, with much caution for anticholinergic side effects. - Work on staying awake during the day, avoid napping - More activity during the day, get outside, interact with family and friends - May use nightly melatonin 1 mg [facility] 12-17-2023 History of Present illness Narrative Assessment/Plan: Difficulty sleeping Reversed sleep cycle, sleeping more during the day and not well at night. He has been using antihistamine for sleep at night, which is working well but is not recommended for seniors due to anticholinergic effects. Risk of anticholinergic side effects discussed, balance risk/benefit of being able to sleep. - May use alkaseltzer antihistamine nightly temporarily until sleep is improved, with much caution for anticholinergic side effects. - Work on staying awake during the day, avoid napping - More activity during the day, get outside, interact with family and friends - May use nightly melatonin 1 mg Left inguinal hernia Chronic, worsening in frequency of symptomatic pressure and discomfort. Easily reducible. ER precautions discussed, worsening pain, not reducible, discoloration, go to ER. - Refer to general surgery for evaluation for surgical repair Anxiety and depression Previously on sertraline 25 mg daily, taking inconsistently due to G-tube issues and not much benefit. - Restart sertraline at 50 mg daily. - Follow up in 3 months or sooner if needed Constipation Intermittent constipation. - Check with african history professor about using probiotic capsule - Increasing physical activity will help - Adequate hydration Subjective: Amy Sun is a 73 y.o. male Chief Complaint Patient presents with Follow-up Hernia. Ellegra. Trouble urinating in morning sometimes. Problem pooping Patient presents for follow up. His is accompanying him. Constipation - would like to try probiotic capsule, would open, mix with water and put through tube. Episode of urinary retention for few hours one day, resolved after BM. Sleep is better with use of alkaseltzer severe cold - has antihistamine. Postnasal drainage Using flonase, but still with drainage down the back of his throat. Makes him cough, gag, sometimes vomit. He has been chewing on ice chips to help with postnasal drainage. The following portions of the patient's history were reviewed and updated as appropriate: allergies, current medications, past family history, past medical history, past social history, past surgical history and problem list. Review of Systems Objective: PACU Vitals 12/17/23 1442 BP: 110/80 Pulse: 82 Resp: 16 Temp: 98.8 F (37.1 C) SpO2: 90% Physical Exam Constitutional: General: He is not in acute distress. Appearance: Normal appearance. He is not ill-appearing, toxic-appearing or diaphoretic. HENT: Head: Normocephalic and atraumatic. Ears: Comments: Hard of hearing Cardiovascular: Rate and Rhythm: Normal rate and regular rhythm. Heart sounds: Normal heart sounds. No murmur heard. No gallop. Pulmonary: Effort: Pulmonary effort is normal. No respiratory distress. Breath sounds: Normal breath sounds. No stridor. No wheezing, rhonchi or rales. Skin: General: Skin is warm and dry. Comments: G-tube c/d/i Neurological: Mental Status: He is alert. Psychiatric: Mood and Affect: Mood normal. For any new medications prescribed today, patient was educated about indications for the medication, how to take the medication and potential side effects of the medications. Ulices Clark DO documented in this encounter [facility] 12-10-2023 Telephone encounter Note Luci cruz faxed to Alexandria Middleton @ [phone] successfully. Suma Escamilla RN [facility] Work Phone: 12-10-2023 Miscellaneous Notes [employer] orders faxed to Alexandria Middleton @ [phone] successfully. Suma Escamilla RN documented in this encounter [facility] 12-09-2023 Telephone encounter Note Pt called and stated that they are unable to get their tube feeding formula until statement of medical necessity is signed by physician. Had [employer] email form (Had been faxed and lost apparently) and asked nurse clinical trial manager to print for Dr. Brandon to sign. [facility] 12-09-2023 Miscellaneous Notes Pt called and stated that they are unable to get their tube feeding formula until statement of medical necessity is signed by physician. Had [employer] email form (Had been faxed and lost apparently) and asked nurse clinical trial manager to print for Dr. Brandon to sign. documented in this encounter [facility] 11-27-2023 Telephone encounter Note Formula change for increased calorie needs. [facility] 11-27-2023 Miscellaneous Notes Formula change for increased calorie needs. documented in this encounter [facility] 11-27-2023 History of Present illness Narrative Oncology Nutrition Therapy Reassessment I have communicated my name and active licensure. The patient's identity and physical location were verified at the time of this visit. Either the patient or their legal technical services representative has been informed of the risks and benefits of -- and alternatives to -- treatment through a remote evaluation and consents to proceed with the evaluation remotely. RECOMMENDED MALNUTRITION DIAGNOSIS: SEVERE PROTEIN-CALORIE MALNUTRITION In the context of Chronic Illness or Injury based on: Unintentional Weight Loss: >7.5% in 3 months Insufficient Energy Intake: Less than 75% energy intake compared to estimated needs for greater than or equal to 1 month Nutrition Diagnosis: Swallowing difficulty, related to, dysphagia 2/2 head and neck cancer, as evidenced by PEG placement and diagnosis. Nutrition Intervention: -Use of PEG feeding tube for 100% nutrition needs - Increase water intake to a total of 1 liter in addition to formula per day. -Use salt and soda mouth rinse - utilize good technique for medication administration via PEG Nutrition Monitoring & Evaluation: EN intake Wt status Biochemical Markers Skin integrity Plan of care Patient Condition: Pt presents for nutrition counseling for history of malignant neoplasm of base of tongue with new onset dysphagia and Feeding tube placement 2/2 cancer. Pt had PEG placed on 04/07/[address] Godoy. 10/27/23: EN regimen - 90ml/hr x 18 hours; (2pm-6pm) ; 3hr break; nocturnal 14hrs Constipated -about one month - resolved (will use miralax if needed per Dr. Clark) Nausea - not taking anything Fever every other day 99.2F Takes three famotidine per day. EN intake 7 cartons of Compleat 1.5 per day - provides 1200ml water; 1837kcal. 11/05/23: pt continues to have early satiety Dr. Gutierrez - surgery for feeding tube Will have a balloon gastrostomy tube placed Started on Reglan EN - not feeding overnight Morning and evening - 90ml/hr 7 bottles Weight: 167.1lb 11/27/23: Improved enteral nutrition intake and water intake Balloon gastrostomy. Improved feeding tolerance after tube replacement No clogging Dr. Jaimes on 11/11/23 EN intake: 5 bottles of tube feeding (3 Boost VHC and 2 of Compleat 1.5) 2340kcal daily Water intake: 20ml x 3; 3 cup water with Rx = 780ml +800ml (formula) = 1630ml water Medication regimen improved after NPO (except ice cubes) Continues to take Reglan twice per day Problems with Infinity pump Topics addressed: troubleshooting with pump, monitor water flush Recommend the following changes: Recommend Zofran ODT - via G tube - or other antiemetic Increase water intake - Measure out water in the morning - goal water is 1000ml/day. Readiness to Learn: Cognitive ability: Alert and oriented Motivation to learn: Eager Family support: High - Very involved in pt care Instruction provided to: Patient and Spouse Patient learns best by: Multiple Methods Factors affecting learning: None Physical limitations affecting learning: None Anthropometrics: HEIGHT/WEIGHT/BSA Height BSA (m2) Weight 06/10/2022 2.19 m2 202 lb 14.4 oz 11/27/2022 188 cm (6' 2.02) 2.1 m2 186 lb 8 oz 12/04/2022 2.12 m2 189 lb 02/05/2023 188 cm (6' 2.02) 2.05 m2 177 lb 14.4 oz 02/14/2023 2.03 m2 174 lb 11.2 oz 02/28/2023 188 cm (6' 2.02) 2.06 m2 178 lb 9.6 oz 03/21/2023 188 cm (6' 2.02) 2.03 m2 174 lb 9.7 oz 05/29/2023 2.01 m2 170 lb 13.7 oz 06/04/2023 1.96 m2 162 lb 11.2 oz 06/23/2023 188 cm (6' 2.02) 1.94 m2 158 lb 4.6 oz 07/08/2023 188 cm (6' 2.02) 1.9 m2 152 lb 6.4 oz 07/23/2023 188 cm (6' 2.02) 1.98 m2 164 lb 14.5 oz Estimated body mass index is 21.16 kg/m as calculated from the following: Height as of 07/23/23: 188 cm (6' 2.02). Weight as of 07/23/23: 74.8 kg (164 lb 14.5 oz). Resting Metabolic Rate: 1616 Dosing Weight: 77.5 kg Estimated kilocalorie needs: 1809-0366 kilocalories determined by 35-40 kcal/kg Estimated protein needs: 93-116 grams determined by 1.2-1.5 g/kg Dosing weight Estimated fluid needs: 4439-7976 milliliters based on 1 mL per kcal Allergies: Patient has no known allergies. Medications: Current Outpatient Medications Medication Sig Dispense Refill iv contrast (will be provided with radiology test) CT Chest W -Inject, intravenously, once for 1 dose.No IV access, insert saline lock prior to the beginning of sedation, infusion, injection of imaging exam. Discontinue saline lock post exam. If Pt. has a central line or IVAD, may access for administration according to line specific nursing protocol. Once exam is complete flush line and de-access according to line specific nursing protocol in the CT contrast administration guidelines link. 1 Each 0 iv contrast (will be provided with radiology test) CT ABD/PEL -Inject, intravenously, once for 1 dose.No IV access, insert saline lock prior to the beginning of sedation, infusion, injection of imaging exam. Discontinue saline lock post exam. If Pt. has a central line or IVAD, may access for administration according to line specific nursing protocol. Once exam is complete flush line and de-access according to line specific nursing protocol in the CT contrast administration guidelines link. 1 Each 0 enteric contrast (will be provided with radiology test) For CT ABD/PEL W IVCON Routine order Administer, As Directed One Time Only, via Oral, Rectal, both Oral and Rectal, Enteric Tube, Stoma or Indwelling Catheter, Enteric Contrast as designated per enteric contrast guidelines 1 Each 0 nutritional supplement-fiber (COMPLEAT 1.5) 0.07 gram-1.5 kcal/mL liqd 80ml/hr of Compleat 1.5 continuously for 24 hours. Use 1 carton of Benecalorie daily. Flush with 200ml water four times per day. 34271 mL 11 sertraline (ZOLOFT) 25 mg tablet Take 1 tablet by mouth once daily. furosemide (LASIX) 20 mg tablet Take 20 mg by mouth once daily. sulindac (CLINORIL) 150 mg tablet pilocarpine (ISOPTO CARPINE) 2 % ophthalmic solution 1 Drop. rosuvastatin (CRESTOR) 5 mg tablet Take 5 mg by mouth once daily. pantoprazole DR (PROTONIX) 40 mg tablet propylene glycol/peg 400 (BLINK TEARS LUBRICATING) Eye Drops Use 1 Drop in both eyes as needed. traMADol (ULTRAM) 50 mg tablet Take 1 tablet by mouth twice daily. testosterone (ANDROGEL) 50 mg/5 g (1%) gel Apply 0.5 Tubes as directed once daily. No current facility-administered medications for this visit. Need for Follow up: 4 weeks Referred/Supervised by: Dr. Nitin LEMA Billing Type: Re-assess/15 min 2 units Billed Time: 30 minutes Signed by: Zoya Hillman RD, SHARRI documented in this encounter [facility] 11-11-2023 Hospital Discharge instructions Jennifer Le RN - 11/11/2023 8:15 AM EDT Patient Instructions after an endoscopy or colonoscopy The anesthetics, sedatives or narcotics which were given to you today will be acting in your body for the next 24 hours, so you might feel a little sleepy or groggy. This feeling should slowly wear off. Carefully read and follow the instructions. You received sedation today: - Do not drive or operate any machinery or power tools of any kind. - No alcoholic beverages today, not even beer or wine. - Do not make any important decisions or sign any legal documents. - No over the counter medications that contain alcohol or that may cause drowsiness. - Do not make any important decisions or sign any legal documents. While it is common to experience mild to moderate abdominal distention, gas, or belching after your procedure, if any of these symptoms occur following discharge from the GI Lab or within one week of having your procedure, call the [facility] to be advised whether a visit to your nearest Urgent Care or Emergency Department is indicated. Take this paper with you if you go. - If you develop an allergic reaction to the medications that were given during your procedure such as difficulty breathing, rash, hives, severe nausea, vomiting or lightheadedness.- If you experience chest pain, shortness of breath, severe abdominal pain, fevers and chills. -If you develop signs and symptoms of bleeding such as blood in your spit, if your stools turn black, tarry, or bloody - If you have not urinated within 8 hours following your procedure.- If your IV site becomes painful, red, inflamed, or looks infected. documented in this encounter [facility] Work Phone: 11-11-2023 Attending History and physical note H&P reviewed. The patient was examined and there are no changes to the H&P. Source Note - Vasu Jaimes DO - 10/31/2023 11:00 AM EDT Subjective Patient ID: Amy Sun is a 73 y.o. male who presents for Feeding Tube (Peg tube malfunction). LUIS Iverson is an unfortunate 73-year-old male who had prior tongue cancer diagnosed back in 2008. 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 He has done well up until recently developed increasing dysphagia with recurrent aspiration pneumonia. He had PEG tube placed for nutritional needs and recurrent aspiration [facility] in March 2023. He admits he is now having issues with tube feeds stating that if he bolus feeds he has vomiting and prompt evacuation of the tube feed up into his throat. He is switched to feeding with neutral count 1.5 and currently receiving pump feedings over 18 hours a day. His weight is stabilized he is still having recurrent episodes of vomiting of tube feeds into his mouth. He states he is also issues with constipation but denies any rectal bleeding or hematemesis. is concerned about PEG tube as it continues to become clogged. They were giving him Protonix which he stopped as it was calling his to consider putting on Carafate but were concerned with recurrent PEG tube clogging as well. The tube itself appears well intact the skin site is free of any secondary infection. We discussed using Coca[employer] to help with PEG tube clearance. Given his PEG tube needing change will make arrangements for PEG tube revision change in the next several weeks. I advised them to continue with pump feedings but schedule them in the morning over 4 hours and the remaining 12 hours after he is settled in for the evening trying to end them 3 hours before he goes to bed and stop giving them overnight as that is increasing his risk of aspiration. As I believe he has some delayed gastric emptying will arrange him to begin Reglan 5 mg twice daily. Review of Systems Constitutional: Negative. HENT: Negative. Eyes: Negative. Respiratory: Negative. Cardiovascular: Negative. Gastrointestinal: Negative. Endocrine: Negative. Genitourinary: Negative. Musculoskeletal: Negative. Neurological: Negative. Hematological: Negative. Psychiatric/Behavioral: Negative. Objective Physical Exam Vitals and nursing note reviewed. Constitutional: Appearance: Normal appearance. HENT: Head: Normocephalic. Mouth/Throat: Mouth: Mucous membranes are moist. Pharynx: Oropharynx is clear. Eyes: Pupils: Pupils are equal, round, and reactive to light. Cardiovascular: Rate and Rhythm: Normal rate and regular rhythm. Pulmonary: Effort: Pulmonary effort is normal. Breath sounds: Normal breath sounds. Abdominal: General: Abdomen is flat. Bowel sounds are normal. Palpations: Abdomen is soft. Musculoskeletal: General: Normal range of motion. Cervical back: Normal range of motion and neck supple. Skin: General: Skin is warm and dry. Neurological: General: No focal deficit present. Mental Status: He is alert and oriented to person, place, and time. Psychiatric: Mood and Affect: Mood normal. Behavior: Behavior normal. Assessment/Plan Diagnoses and all orders for this visit: Nausea and vomiting, unspecified vomiting type - metoclopramide (Reglan) 5 mg tablet; Take 1 tablet (5 mg) by mouth 2 times a day. Pharyngoesophageal dysphagia S/P percutaneous endoscopic gastrostomy (PEG) tube placement (Multi) History of throat cancer The tube itself appears well intact the skin site is free of any secondary infection. We discussed using Coca-Cola to help with PEG tube clearance. Given his PEG tube needing change will make arrangements for PEG tube revision change in the next several weeks. I advised them to continue with pump feedings but schedule them in the morning over 4 hours and the remaining 12 hours after he is settled in for the evening trying to end them 3 hours before he goes to bed and stop giving them overnight as that is increasing his risk of aspiration. As I believe he has some delayed gastric emptying will arrange him to begin Reglan 5 mg twice daily. Vasu Jaimes DO 10/31/23 3:04 PM [facility] Work Phone: 11-11-2023 History and physical note H&P reviewed. The patient was examined and there are no changes to the H&P. Source Note - Vasu Jaimes DO - 10/31/2023 11:00 AM EDT Subjective Patient ID: Amy Sun is a 73 y.o. male who presents for Feeding Tube (Peg tube malfunction). LUIS Iverson is an unfortunate 73-year-old male who had prior tongue cancer diagnosed back in 2008. 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 He has done well up until recently developed increasing dysphagia with recurrent aspiration pneumonia. He had PEG tube placed for nutritional needs and recurrent aspiration [facility] in March 2023. He admits he is now having issues with tube feeds stating that if he bolus feeds he has vomiting and prompt evacuation of the tube feed up into his throat. He is switched to feeding with neutral count 1.5 and currently receiving pump feedings over 18 hours a day. His weight is stabilized he is still having recurrent episodes of vomiting of tube feeds into his mouth. He states he is also issues with constipation but denies any rectal bleeding or hematemesis. is concerned about PEG tube as it continues to become clogged. They were giving him Protonix which he stopped as it was calling his to consider putting on Carafate but were concerned with recurrent PEG tube clogging as well. The tube itself appears well intact the skin site is free of any secondary infection. We discussed using Coca-Cola to help with PEG tube clearance. Given his PEG tube needing change will make arrangements for PEG tube revision change in the next several weeks. I advised them to continue with pump feedings but schedule them in the morning over 4 hours and the remaining 12 hours after he is settled in for the evening trying to end them 3 hours before he goes to bed and stop giving them overnight as that is increasing his risk of aspiration. As I believe he has some delayed gastric emptying will arrange him to begin Reglan 5 mg twice daily. Review of Systems Constitutional: Negative. HENT: Negative. Eyes: Negative. Respiratory: Negative. Cardiovascular: Negative. Gastrointestinal: Negative. Endocrine: Negative. Genitourinary: Negative. Musculoskeletal: Negative. Neurological: Negative. Hematological: Negative. Psychiatric/Behavioral: Negative. Objective Physical Exam Vitals and nursing note reviewed. Constitutional: Appearance: Normal appearance. HENT: Head: Normocephalic. Mouth/Throat: Mouth: Mucous membranes are moist. Pharynx: Oropharynx is clear. Eyes: Pupils: Pupils are equal, round, and reactive to light. Cardiovascular: Rate and Rhythm: Normal rate and regular rhythm. Pulmonary: Effort: Pulmonary effort is normal. Breath sounds: Normal breath sounds. Abdominal: General: Abdomen is flat. Bowel sounds are normal. Palpations: Abdomen is soft. Musculoskeletal: General: Normal range of motion. Cervical back: Normal range of motion and neck supple. Skin: General: Skin is warm and dry. Neurological: General: No focal deficit present. Mental Status: He is alert and oriented to person, place, and time. Psychiatric: Mood and Affect: Mood normal. Behavior: Behavior normal. Assessment/Plan Diagnoses and all orders for this visit: Nausea and vomiting, unspecified vomiting type - metoclopramide (Reglan) 5 mg tablet; Take 1 tablet (5 mg) by mouth 2 times a day. Pharyngoesophageal dysphagia S/P percutaneous endoscopic gastrostomy (PEG) tube placement (Multi) History of throat cancer The tube itself appears well intact the skin site is free of any secondary infection. We discussed using Coca-[employer]a to help with PEG tube clearance. Given his PEG tube needing change will make arrangements for PEG tube revision change in the next several weeks. I advised them to continue with pump feedings but schedule them in the morning over 4 hours and the remaining 12 hours after he is settled in for the evening trying to end them 3 hours before he goes to bed and stop giving them overnight as that is increasing his risk of aspiration. As I believe he has some delayed gastric emptying will arrange him to begin Reglan 5 mg twice daily. Vasu Jaimes DO 10/31/23 3:04 PM documented in this encounter [facility] Work Phone: 11-05-2023 History of Present illness Narrative Oncology Nutrition Therapy Reassessment I have communicated my name and active licensure. The patient's identity and physical location were verified at the time of this visit. Either the patient or their legal technical services representative has been informed of the risks and benefits of -- and alternatives to -- treatment through a remote evaluation and consents to proceed with the evaluation remotely. RECOMMENDED MALNUTRITION DIAGNOSIS: SEVERE PROTEIN-CALORIE MALNUTRITION In the context of Chronic Illness or Injury based on: Unintentional Weight Loss: >7.5% in 3 months Insufficient Energy Intake: Less than 75% energy intake compared to estimated needs for greater than or equal to 1 month Nutrition Diagnosis: Swallowing difficulty, related to, dysphagia 2/2 head and neck cancer, as evidenced by PEG placement and diagnosis. Nutrition Intervention: -Use of PEG feeding tube for 100% nutrition needs - Increase water intake to a total of 1 liter in addition to formula per day. -Use salt and soda mouth rinse - utilize good technique for medication administration via PEG Nutrition Monitoring & Evaluation: EN intake Wt status Biochemical Markers Skin integrity Plan of care Patient Condition: Pt presents for nutrition counseling for history of malignant neoplasm of base of tongue with new onset dysphagia and Feeding tube placement 2/2 cancer. Pt had PEG placed on 04/07/[address] Godoy. 10/27/23: EN regimen - 90ml/hr x 18 hours; (2pm-6pm) ; 3hr break; nocturnal 14hrs Constipated -about one month - resolved (will use miralax if needed per Dr. Clark) Nausea - not taking anything Fever every other day 99.2F Takes three famotidine per day. EN intake 7 cartons of Compleat 1.5 per day - provides 1200ml water; 1837kcal. 11/05/23: pt continues to have early satiety Dr. Gutierrez - surgery for feeding tube Will have a balloon gastrostomy tube placed Started on Reglan EN - not feeding overnight Morning and evening - 90ml/hr 7 bottles Weight: 167.1lb Recommend the following changes: Recommend Zofran ODT - via G tube - or other antiemetic Increase water intake - Measure out water in the morning - goal water is 1000ml/day. Readiness to Learn: Cognitive ability: Alert and oriented Motivation to learn: Eager Family support: High - Very involved in pt care Instruction provided to: Patient and Spouse Patient learns best by: Multiple Methods Factors affecting learning: None Physical limitations affecting learning: None Anthropometrics: HEIGHT/WEIGHT/BSA Height BSA (m2) Weight 06/10/2022 2.19 m2 202 lb 14.4 oz 11/27/2022 188 cm (6' 2.02) 2.1 m2 186 lb 8 oz 12/04/2022 2.12 m2 189 lb 02/05/2023 188 cm (6' 2.02) 2.05 m2 177 lb 14.4 oz 02/14/2023 2.03 m2 174 lb 11.2 oz 02/28/2023 188 cm (6' 2.02) 2.06 m2 178 lb 9.6 oz 03/21/2023 188 cm (6' 2.02) 2.03 m2 174 lb 9.7 oz 05/29/2023 2.01 m2 170 lb 13.7 oz 06/04/2023 1.96 m2 162 lb 11.2 oz 06/23/2023 188 cm (6' 2.02) 1.94 m2 158 lb 4.6 oz 07/08/2023 188 cm (6' 2.02) 1.9 m2 152 lb 6.4 oz 07/23/2023 188 cm (6' 2.02) 1.98 m2 164 lb 14.5 oz Estimated body mass index is 21.16 kg/m as calculated from the following: Height as of 07/23/23: 188 cm (6' 2.02). Weight as of 07/23/23: 74.8 kg (164 lb 14.5 oz). Resting Metabolic Rate: 1616 Dosing Weight: 77.5 kg Estimated kilocalorie needs: 2532-2785 kilocalories determined by 35-40 kcal/kg Estimated protein needs: 93-116 grams determined by 1.2-1.5 g/kg Dosing weight Estimated fluid needs: 6627-2754 milliliters based on 1 mL per kcal Allergies: Patient has no known allergies. Medications: Current Outpatient Medications Medication Sig Dispense Refill iv contrast (will be provided with radiology test) CT Chest W -Inject, intravenously, once for 1 dose.No IV access, insert saline lock prior to the beginning of sedation, infusion, injection of imaging exam. Discontinue saline lock post exam. If Pt. has a central line or IVAD, may access for administration according to line specific nursing protocol. Once exam is complete flush line and de-access according to line specific nursing protocol in the CT contrast administration guidelines link. 1 Each 0 iv contrast (will be provided with radiology test) CT ABD/PEL -Inject, intravenously, once for 1 dose.No IV access, insert saline lock prior to the beginning of sedation, infusion, injection of imaging exam. Discontinue saline lock post exam. If Pt. has a central line or IVAD, may access for administration according to line specific nursing protocol. Once exam is complete flush line and de-access according to line specific nursing protocol in the CT contrast administration guidelines link. 1 Each 0 enteric contrast (will be provided with radiology test) For CT ABD/PEL W IVCON Routine order Administer, As Directed One Time Only, via Oral, Rectal, both Oral and Rectal, Enteric Tube, Stoma or Indwelling Catheter, Enteric Contrast as designated per enteric contrast guidelines 1 Each 0 nutritional supplement-fiber (COMPLEAT 1.5) 0.07 gram-1.5 kcal/mL liqd 80ml/hr of Compleat 1.5 continuously for 24 hours. Use 1 carton of Benecalorie daily. Flush with 200ml water four times per day. 95305 mL 11 sertraline (ZOLOFT) 25 mg tablet Take 1 tablet by mouth once daily. furosemide (LASIX) 20 mg tablet Take 20 mg by mouth once daily. sulindac (CLINORIL) 150 mg tablet pilocarpine (ISOPTO CARPINE) 2 % ophthalmic solution 1 Drop. rosuvastatin (CRESTOR) 5 mg tablet Take 5 mg by mouth once daily. pantoprazole DR (PROTONIX) 40 mg tablet propylene glycol/peg 400 (BLINK TEARS LUBRICATING) Eye Drops Use 1 Drop in both eyes as needed. traMADol (ULTRAM) 50 mg tablet Take 1 tablet by mouth twice daily. testosterone (ANDROGEL) 50 mg/5 g (1%) gel Apply 0.5 Tubes as directed once daily. No current facility-administered medications for this visit. Need for Follow up: 1-2 weeks Referred/Supervised by: Dr. Nitin LEMA Billing Type: Re-assess/15 min 2 units Billed Time: 30 minutes Signed by: Zoya Hillman RD, SHARRI documented in this encounter [facility] 10-31-2023 History of Present illness Narrative Subjective Patient ID: Amy Sun is a 73 y.o. male who presents for Feeding Tube (Peg tube malfunction). LUIS Iverson is an unfortunate 73-year-old male who had prior tongue cancer diagnosed back in 2008. 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 He has done well up until recently developed increasing dysphagia with recurrent aspiration pneumonia. He had PEG tube placed for nutritional needs and recurrent aspiration [facility] in March 2023. He admits he is now having issues with tube feeds stating that if he bolus feeds he has vomiting and prompt evacuation of the tube feed up into his throat. He is switched to feeding with neutral count 1.5 and currently receiving pump feedings over 18 hours a day. His weight is stabilized he is still having recurrent episodes of vomiting of tube feeds into his mouth. He states he is also issues with constipation but denies any rectal bleeding or hematemesis. is concerned about PEG tube as it continues to become clogged. They were giving him Protonix which he stopped as it was calling his to consider putting on Carafate but were concerned with recurrent PEG tube clogging as well. The tube itself appears well intact the skin site is free of any secondary infection. We discussed using Coca-[employer]a to help with PEG tube clearance. Given his PEG tube needing change will make arrangements for PEG tube revision change in the next several weeks. I advised them to continue with pump feedings but schedule them in the morning over 4 hours and the remaining 12 hours after he is settled in for the evening trying to end them 3 hours before he goes to bed and stop giving them overnight as that is increasing his risk of aspiration. As I believe he has some delayed gastric emptying will arrange him to begin Reglan 5 mg twice daily. Review of Systems Constitutional: Negative. HENT: Negative. Eyes: Negative. Respiratory: Negative. Cardiovascular: Negative. Gastrointestinal: Negative. Endocrine: Negative. Genitourinary: Negative. Musculoskeletal: Negative. Neurological: Negative. Hematological: Negative. Psychiatric/Behavioral: Negative. Objective Physical Exam Vitals and nursing note reviewed. Constitutional: Appearance: Normal appearance. HENT: Head: Normocephalic. Mouth/Throat: Mouth: Mucous membranes are moist. Pharynx: Oropharynx is clear. Eyes: Pupils: Pupils are equal, round, and reactive to light. Cardiovascular: Rate and Rhythm: Normal rate and regular rhythm. Pulmonary: Effort: Pulmonary effort is normal. Breath sounds: Normal breath sounds. Abdominal: General: Abdomen is flat. Bowel sounds are normal. Palpations: Abdomen is soft. Musculoskeletal: General: Normal range of motion. Cervical back: Normal range of motion and neck supple. Skin: General: Skin is warm and dry. Neurological: General: No focal deficit present. Mental Status: He is alert and oriented to person, place, and time. Psychiatric: Mood and Affect: Mood normal. Behavior: Behavior normal. Assessment/Plan Diagnoses and all orders for this visit: Nausea and vomiting, unspecified vomiting type - metoclopramide (Reglan) 5 mg tablet; Take 1 tablet (5 mg) by mouth 2 times a day. Pharyngoesophageal dysphagia S/P percutaneous endoscopic gastrostomy (PEG) tube placement (Multi) History of throat cancer The tube itself appears well intact the skin site is free of any secondary infection. We discussed using Coca-[employer] to help with PEG tube clearance. Given his PEG tube needing change will make arrangements for PEG tube revision change in the next several weeks. I advised them to continue with pump feedings but schedule them in the morning over 4 hours and the remaining 12 hours after he is settled in for the evening trying to end them 3 hours before he goes to bed and stop giving them overnight as that is increasing his risk of aspiration. As I believe he has some delayed gastric emptying will arrange him to begin Reglan 5 mg twice daily. Vasu Jaimes DO 10/31/23 3:04 PM documented in this encounter [facility] Work Phone: 10-27-2023 History of Present illness Narrative Oncology Nutrition Therapy Reassessment I have communicated my name and active licensure. The patient's identity and physical location were verified at the time of this visit. Either the patient or their legal technical services representative has been informed of the risks and benefits of -- and alternatives to -- treatment through a remote evaluation and consents to proceed with the evaluation remotely. RECOMMENDED MALNUTRITION DIAGNOSIS: SEVERE PROTEIN-CALORIE MALNUTRITION In the context of Chronic Illness or Injury based on: Unintentional Weight Loss: >7.5% in 3 months Insufficient Energy Intake: Less than 75% energy intake compared to estimated needs for greater than or equal to 1 month Nutrition Diagnosis: Swallowing difficulty, related to, dysphagia 2/2 head and neck cancer, as evidenced by PEG placement and diagnosis. Nutrition Intervention: -Use of PEG feeding tube for 100% nutrition needs - Increase water intake to a total of 1 liter in addition to formula per day. -Use salt and soda mouth rinse - utilize good technique for medication administration via PEG Nutrition Monitoring & Evaluation: EN intake Wt status Biochemical Markers Skin integrity Plan of care Patient Condition: Pt presents for nutrition counseling for history of malignant neoplasm of base of tongue with new onset dysphagia and Feeding tube placement 2/2 cancer. Pt had PEG placed on 04/07/[address] Godoy. 10/27/23: EN regimen - 90ml/hr x 18 hours; (2pm-6pm) ; 3hr break; nocturnal 14hrs Constipated -about one month - resolved (will use miralax if needed per Dr. Clark) Nausea - not taking anything Fever every other day 99.2F Takes three famotidine per day. EN intake 7 cartons of Compleat 1.5 per day - provides 1200ml water; 1837kcal. Recommend the following changes: Recommend Zofran ODT - via G tube - or other antiemetic Increase water intake - Measure out water in the morning - goal water is 1000ml/day. Readiness to Learn: Cognitive ability: Alert and oriented Motivation to learn: Eager Family support: High - Very involved in pt care Instruction provided to: Patient and Spouse Patient learns best by: Multiple Methods Factors affecting learning: None Physical limitations affecting learning: None Anthropometrics: HEIGHT/WEIGHT/BSA Height BSA (m2) Weight 06/10/2022 2.19 m2 202 lb 14.4 oz 11/27/2022 188 cm (6' 2.02) 2.1 m2 186 lb 8 oz 12/04/2022 2.12 m2 189 lb 02/05/2023 188 cm (6' 2.02) 2.05 m2 177 lb 14.4 oz 02/14/2023 2.03 m2 174 lb 11.2 oz 02/28/2023 188 cm (6' 2.02) 2.06 m2 178 lb 9.6 oz 03/21/2023 188 cm (6' 2.02) 2.03 m2 174 lb 9.7 oz 05/29/2023 2.01 m2 170 lb 13.7 oz 06/04/2023 1.96 m2 162 lb 11.2 oz 06/23/2023 188 cm (6' 2.02) 1.94 m2 158 lb 4.6 oz 07/08/2023 188 cm (6' 2.02) 1.9 m2 152 lb 6.4 oz 07/23/2023 188 cm (6' 2.02) 1.98 m2 164 lb 14.5 oz Estimated body mass index is 21.16 kg/m as calculated from the following: Height as of 07/23/23: 188 cm (6' 2.02). Weight as of 07/23/23: 74.8 kg (164 lb 14.5 oz). Resting Metabolic Rate: 1616 Dosing Weight: 77.5 kg Estimated kilocalorie needs: 7263-2061 kilocalories determined by 35-40 kcal/kg Estimated protein needs: 93-116 grams determined by 1.2-1.5 g/kg Dosing weight Estimated fluid needs: 6055-2056 milliliters based on 1 mL per kcal Allergies: Patient has no known allergies. Medications: Current Outpatient Medications Medication Sig Dispense Refill iv contrast (will be provided with radiology test) CT Chest W -Inject, intravenously, once for 1 dose.No IV access, insert saline lock prior to the beginning of sedation, infusion, injection of imaging exam. Discontinue saline lock post exam. If Pt. has a central line or IVAD, may access for administration according to line specific nursing protocol. Once exam is complete flush line and de-access according to line specific nursing protocol in the CT contrast administration guidelines link. 1 Each 0 iv contrast (will be provided with radiology test) CT ABD/PEL -Inject, intravenously, once for 1 dose.No IV access, insert saline lock prior to the beginning of sedation, infusion, injection of imaging exam. Discontinue saline lock post exam. If Pt. has a central line or IVAD, may access for administration according to line specific nursing protocol. Once exam is complete flush line and de-access according to line specific nursing protocol in the CT contrast administration guidelines link. 1 Each 0 enteric contrast (will be provided with radiology test) For CT ABD/PEL W IVCON Routine order Administer, As Directed One Time Only, via Oral, Rectal, both Oral and Rectal, Enteric Tube, Stoma or Indwelling Catheter, Enteric Contrast as designated per enteric contrast guidelines 1 Each 0 nutritional supplement-fiber (COMPLEAT 1.5) 0.07 gram-1.5 kcal/mL liqd 80ml/hr of Compleat 1.5 continuously for 24 hours. Use 1 carton of Benecalorie daily. Flush with 200ml water four times per day. 70700 mL 11 sertraline (ZOLOFT) 25 mg tablet Take 1 tablet by mouth once daily. furosemide (LASIX) 20 mg tablet Take 20 mg by mouth once daily. sulindac (CLINORIL) 150 mg tablet pilocarpine (ISOPTO CARPINE) 2 % ophthalmic solution 1 Drop. rosuvastatin (CRESTOR) 5 mg tablet Take 5 mg by mouth once daily. Lactose-Free Food with Fiber (JEVITY 1.5 WEN) 0.06 gram-1.5 kcal/mL liqd 1 carton eight times per day. Flush with 160ml water for each bolus feeding. [address] (PROTONIX) 40 mg tablet propylene glycol/peg 400 (BLINK TEARS LUBRICATING) Eye Drops Use 1 Drop in both eyes as needed. traMADol (ULTRAM) 50 mg tablet Take 1 tablet by mouth twice daily. testosterone (ANDROGEL) 50 mg/5 g (1%) gel Apply 0.5 Tubes as directed once daily. No current facility-administered medications for this visit. Need for Follow up: 1-2 weeks Referred/Supervised by: Dr. Nitin LEMA Billing Type: Re-assess/15 min 2 units Billed Time: 30 minutes Signed by: Zoya Hillman RD, LD documented in this encounter [facility] 10-23-2023 Evaluation + Plan note Associated Problem(s): S/P percutaneous endoscopic gastrostomy (PEG) tube placement (HCC) PEG due to tongue cancer. Follows with oncology, GI, travel registered nurse pacu at [facility]. Would like to have a local GI provider to assist with PEG tube management. [facility] 10-23-2023 Miscellaneous Notes Associated Problem(s): S/P percutaneous endoscopic gastrostomy (PEG) tube placement (HCC) PEG due to tongue cancer. Follows with oncology, GI, travel registered nurse pacu at [facility]. Would like to have a local GI provider to assist with PEG tube management. Associated Problem(s): Vomiting Symptoms improving since constipation has resolved. Encouraged to maintain bowel regimen with MiraLAX as needed. Increase water intake with 1-2 200 mg water boluses per day per PEG tube. Continue to administer medications as prescribed. Check CMP and CBC today. Lungs CTAB on exam, but if patient does not improve would have low threshold to obtain CXR for aspiration pneumonia given his history of this. Patient and agree to monitor and call with any worsening symptoms. documented in this encounter [facility] 10-23-2023 Evaluation + Plan note Associated Problem(s): Vomiting Symptoms improving since constipation has resolved. Encouraged to maintain bowel regimen with MiraLAX as needed. Increase water intake with 1-2 200 mg water boluses per day per PEG tube. Continue to administer medications as prescribed. Check CMP and CBC today. Lungs CTAB on exam, but if patient does not improve would have low threshold to obtain CXR for aspiration pneumonia given his history of this. Patient and agree to monitor and call with any worsening symptoms. [facility] 10-23-2023 Instructions Ulices Clark DO - 10/23/2023 12:37 PM EDT Continue to split tube feed into 2 doses since you are tolerating that. Increase water intake; try 1 200 mL dose of water daily in addition to the amount you take with medications. You can take miralax through the tube for constipation; just make sure it is dissolved completely before injecting and must be 2 hours apart from tube feeding. Call if you have more coughing, feel more fatigued, or have a fever of 100.4 or higher. STEADI Low Risk Patient Instructions: Your Falls Screening today shows that you are at low risk for falls. To further protect yourself from falls and maintain your independence, we recommend: 1. Read through the brochure, What You Can Do to Prevent Falls (from [facility]). 2. Go through the brochure, Check for Safety: A Home Fall Prevention Checklist for Older Adults (from [facility]), and make changes as recommended. 3. Join a community falls prevention program: Stepping On, a 7-week evidence based program that teaches balance exercises and fall prevention strategies Pierce Chi for older adults, group exercise that teaches Pierce Chi forms that reduce fall risk (weight shifting, postural alignment and control, and coordinated movements of the arms, legs, head, and trunk) Matter of Balance, an evidence based program designed to reduce the fear of falling and increase activity levels of older adults OR an exercise class for strength and balance. 4. Take your Vitamin D with or without Calcium, as determined by your healthcare provider. 5. Get your vision and hearing checked annually. Falls At Home Each year, thousands of older Americans fall at home. Many of them are seriously injured, and some are disabled. In 2011, nearly 23,000 people over age 65 and 2.4 million were treated in emergency departments because of falls. Falls are often due to hazards that are easy to overlook but easy to fix. This checklist will help you find and fix those hazards in your home. The checklist asks about hazards found in each room of your home. For each hazard, the checklist tells you how to fix the problem. At the end of the checklist, you ll find other tips for preventing falls. FLOORS: Look at the floor in each room. Q: When you walk through a room, do you have to walk around furniture? A. Ask someone to move the furniture so your path is clear Q: Do you have throw rugs on the floor? A. Remove the rugs or use double-sided tape or a non-slip backing so the rugs won t slip. Q: Are there papers, books, towels, shoes, magazines, boxes, blankets, or other objects on the floor? A.marketing support assistant things that are on the floor. Always keep objects off the floor. Q: Do you have to walk over or around wires or cords (like lamp, telephone, or extension cords)? A. Coil or tape cords and wires next to the wall so you can t trip over them. If needed, have an aviation electrician put in another outlet. STAIRS AND STEPS: Look at the stairs you use both inside and outside your home. Q: Are there papers, shoes, books, or other objects on the stairs? A. marketing support assistant things on the stairs. Always keep objects off stairs. Q: Are some steps broken or uneven? A. Fix loose or uneven steps. Q: Are you missing a light over the stairway? A. Have an aviation electrician put in an overhead light at the top and bottom of the stairs. Q: Do you have only one light switch for your stairs (only at the top or at the bottom of the stairs)? A. Have an aviation electrician put in a light switch at the top and bottom of the stairs. You can get light switches that glow. Q: Has the stairway light bulb burned out? A. Have a friend or family member change the light bulb. Q: Is the carpet on the steps loose or torn? A. Make sure the carpet is firmly attached to every step, or remove the carpet and attach non-slip rubber treads to the stairs. Q: Are the handrails loose or broken? Is there a handrail on only one side of the stairs? A. Fix loose handrails or put in new ones. Make sure handrails are on both sides of the stairs and are as long as the stairs. KITCHEN: Look at your kitchen and eating area. Q: Are the things you use often on high shelves? A. Move items in your cabinets. Keep things you use often on the lower shelves (about waist level). Q: Is your step stool unsteady? A. If you must use a step stool, get one with a bar to hold on to. Never use a chair as a step stool. BATHROOMS: Look at all your bathrooms. Q: Is the tub or shower floor slippery? A. Put a non-slip rubber mat or self-stick strips on the floor of the tub or shower. Q: Do you need some support when you get in and out of the tub or up from the toilet? A. Have grab bars put in next to and inside the tub and next to the toilet. BEDROOMS: Look at all your bedrooms. Q: Is the light near the bed hard to reach? A. Place a lamp close to the bed where it s easy to reach. Q: Is the path from your bed to the bathroom dark? A. Put in a night-light so you can see where you re walking. Some night-lights go on by themselves after dark. Other Things You Can Do to Prevent Falls Do exercises that improve your balance and make your legs stronger. Exercise also helps you feel better and more confident. Have your doctor or pharmacist look at all the medicines you take, even zjbn-qiy-neafsxa medicines. Some medicines can make you sleepy or dizzy. Have your eyes checked by an eye doctor at least once a year and update your glasses. Get up slowly after you sit or lie down. Wear shoes both inside and outside the house. Avoid going barefoot or wearing slippers. Improve the lighting in your home. Put in brighter light bulbs. Florescent bulbs are bright and cost less to use. It s safest to have uniform lighting in a room. Add lighting to dark areas. Hang lightweight curtains or shades to reduce glare. [place] a contrasting color on the top edge of all steps so you can see the stairs better. For example, use a light color paint on dark wood. To access this brochure online, please visit the CDC website at http://www.cdc.gov/steadi/pdf/check_fo r_safety_brochure-a.pdf Chair Rise Exercise What it does: Strengthens the muscles in your thighs & buttocks. Goal: To do this exercise without using your hands as you become stronger. How to do it: 1. Sit toward the front of a sturdy chair with your knees bent & feet flat on the floor shoulder-width apart 2. Rest your hands lightly on the seat on either side of you, keeping your back & neck straight & and chest slightly forward. 3. Breathe in slowly. Lean forward & feel your weight on the front of your feet. 4. Breathe out and slowly stand up, using your hands as little as possible. 5. Pause for a full breath in & out. 6. Breathe in as you slowly sit down. Do not let yourself collapse back down into the chair. Rather, control your lowering as much as possible. 7. Breathe out. Repeat 10-15 times. If this number is too hard for you when you first start practicing this exercise, begin with fewer and work up to this number. Rest for a minute & then do a final set of 10-15. For detailed instructions, please visit the CDC website at http://www.cdc.gov/steadi/pdf/chair_ri se_exercise-a.pdf Stepping On is an evidence based program proven to reduce falls in older adults. It is a workshop offered once a week for seven weeks. In a small-group setting, you will learn balance exercises and develop specific knowledge and skills to prevent falls. Older adults who should attend are those who: are at risk of falling who have fallen one or more times lives at home are able to walk without the help of another person Local guest experts provide information on exercise, safety, vision, and medications. Classes are offered at [facility]. To find out specifics about a class, please call [phone]. Pierce chi: Moving for Better Balance involves low impact exercise. The 12-week class is offered for three hours per week and is led by a trained first aid instructor. It is intended for people aged 60 and older. Participants learn and perform a program of eight forms that progress from easy to more difficult. The program can accommodate persons with various physical conditions. Health Benefits of Pierce Chi: Moving for Better Balance: Improved social and mental well-being, Improved balance and physical functioning, Improved confidence in conducting daily activities, Reduced risk of falling and sustaining associated injuries, and Maintained independence and improved quality of life. To find a Pierce Chi program in your area or additional resources about fall prevention please contact: [facility] Violence and Injury Prevention Program at [phone] or [email or web address] A Matter of Balance: Managing Concerns about Falls is an evidence based program designed to reduce the fear of falling and increase activity levels of older adults. A trained electronic imager leads 8 two-hour sessions for small groups of older adults. The class is intended for people 60 and older who are at risk of falling have a fear of falling or restrict activities who have fallen in the past are interested in improving flexibility, balance, and strength. Participants will learn to view falls as controllable, set goals to increase activity levels, and reduce fall risks at home. Classes are offered in all [address] [place] [address] in [place]. For more information about specific classes near you, please visit http://aging.[place].gov/steadyu/resource s/matterofbalance.aspx. documented in this encounter [facility] 10-23-2023 History of Present illness Narrative Assessment/Plan: Vomiting Symptoms improving since constipation has resolved. Encouraged to maintain bowel regimen with MiraLAX as needed. Increase water intake with 1-2 200 mg water boluses per day per PEG tube. Continue to administer medications as prescribed. Check CMP and CBC today. Lungs CTAB on exam, but if patient does not improve would have low threshold to obtain CXR for aspiration pneumonia given his history of this. Patient and agree to monitor and call with any worsening symptoms. S/P percutaneous endoscopic gastrostomy (PEG) tube placement (HCC) PEG due to tongue cancer. Follows with oncology, GI, travel registered nurse pacu at [facility]. Would like to have a local GI provider to assist with PEG tube management. Subjective: Amy Sun is a 73 y.o. male Chief Complaint Patient presents with Follow-up Throwing up, low grade fever can't keep any thing down. Happening for about a week. Fall Risk Screening Presenting for acute visit, accompanied by his . 1 week of not feeling well, vomiting tube feeds and medications, unable to keep them down. Temperature up to 99.4. He does endorse some cough, but this is his baseline and not worsened. Denies sinus pressure, pain, sore throat, ear fullness. He has been constipated for about 1 month, very small BMs daily. gave him 1/2 dose dulcolax through the PEG tube 2 days ago and he has had few large BM since then. Bowel fullness/pain is resolved. His has started splitting his tube feeds into 2 doses and he is able to keep it down this way. Still not tolerating medications. He has migraines and has had more headaches recently. They are frustrated with his PEG tube management, feeling overwhelmed. He continues to experience GERD symptoms since not being able to keep down Pepcid. He has not been taking pantoprazole because it clogs up his tube. We discussed possibly using Carafate, but after speaking to pharmacist found that is also high risk for clogging up a PEG tube and is not recommended to take per PEG. The following portions of the patient's history were reviewed and updated as appropriate: allergies, current medications, past family history, past medical history, past social history, past surgical history and problem list. Review of Systems Respiratory: Positive for cough. Cardiovascular: Negative for leg swelling. Gastrointestinal: Positive for nausea and vomiting. Negative for blood in stool and diarrhea. Objective: PACU Vitals 10/23/23 1117 BP: 126/87 Pulse: 77 Resp: 15 Temp: SpO2: (!) 88% Physical Exam Constitutional: General: He is not in acute distress. Appearance: Normal appearance. He is not ill-appearing or toxic-appearing. HENT: Mouth/Throat: Mouth: Mucous membranes are moist. Cardiovascular: Rate and Rhythm: Normal rate and regular rhythm. Heart sounds: Normal heart sounds. Pulmonary: Effort: Pulmonary effort is normal. No respiratory distress. Breath sounds: Normal breath sounds. No wheezing or rhonchi. Abdominal: General: Abdomen is flat. Bowel sounds are normal. Palpations: Abdomen is soft. Comments: PEG tube securely in place with no erythema or discharge Skin: General: Skin is warm and dry. Neurological: Mental Status: He is alert. Psychiatric: Mood and Affect: Mood normal. Behavior: Behavior normal. Thought Content: Thought content normal. For any new medications prescribed today, patient was educated about indications for the medication, how to take the medication and potential side effects of the medications. Ulices Clark DO documented in this encounter [facility] 09-25-2023 History of Present illness Narrative Images from the original note were not included. HPI Chief Complaint Patient presents with [facility] Care Subjective: Amy Sun is a 73 y.o. male and is here for a comprehensive physical exam. He was seeing Dr. Rubin at [facility] for primary care, but wishes to establish care with us here in [place]. He has a PMH of HTN, HLD, GERD, BPH, DJD, COPD, hepatic steatosis, insomnia, former tobacco use and tongue CA, phayrngeoesophageal dysphagia s/p PEG tube placement (04/04/23). Squamous cell CA of tongue (dx. In 11/2008) with history of dysphagia, aspiration PNA, and s/p PEG tube placement (04/04/23). He is s/p radiation and chemotherapy 02/26/2009. He follows with Dr. Holder, ENT and will follow with him in May of [address] Brandon, oncology for this every 6 months and will see him in January of this year. 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 He follows with a dietitian and is taking tube feed replacements. Patient and note he is finally gaining weight back after being started on the tube feed replacements. Patient has is being considered for a vocal cord filler, but states he does not wish to pursue this. Recent CT scans demonstrated increasing nodular densities in right lower lobe, therefore Dr. Brandon has ordered for him to repeat CT scan around January when he follows with Dr. Brandon. Patient also has known multiple bilateral renal cysts which according to Dr. Brandon note, is predominately Bosniak [address] 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 He also sees Pulmonology. Dr. Bojorquez at [facility] for his centrilobular emphysema. At his last visit with Dr. Bojorquez he was referred for pulonary rehab. GERD-Patient is currently on Protonix granules 40 mg and Pepcid 40 mg daily. Patient and express concern regarding the granules and how difficult it is to administer these through the PEG tube. Patient and family requesting an alternative. HTN-Patient denies chest pain, SOB, lower extremity weakness, heart palpitations, GREEN, dizziness, lightheadedness, or headaches. Patient no longer takes the olmesartan for BP but is taking Lasix for his LE edema. HLD-He is on Crestor 5 mg daily. Denies side effects from medications. Chronic pain from the history of tongue CA, radiation and surgeries. He currently is taking Tramadol 100 mg in the morning and 50 mg before bed. He is also taking sulindac 150 mg BID. Notes these medications assist in lowering his pain. Denies side effects. Anxiety/depression-Patient was started on Zoloft 25 mg about 2 months ago. Patient and deny any relief of symptoms, states he does not wish to continue this medication. Migraines-patient states he rarely get migraines but was prescribed Imitrex in the past and takes when needed. Otherwise will take Excedrin for other headaches. Patient also follows with dermatology and saw them a few days ago and have multiple healing areas to his face and bilateral hands where cryotherapy was used. Health Maintenance Topic Date Due PSA Level Never done Tetanus: Every 10yrs Never done Abdominal Aortic Ultrasound Never done Colorectal Cancer Screening/Monitoring Never done Medicare Wellness Visit Never done Hepatitis C Screening Never done Falls Risk Assessment Never done COVID-19 Vaccine (2022- season) 2022 Influenza Vaccine (1) 10/19/2023 Depression Remission Assessment (PHQ9) 07/25/2024 Pneumococcal Vaccine: Age 65+ Completed Zoster Vaccines Completed The following portions of the patient's history were reviewed and updated as appropriate: allergies, current medications, past family history, past medical history, past social history, past surgical history and problem list. Past Medical History: Diagnosis Date Arthritis Benign prostatic hyperplasia Cancer (HCC) 2008 Tongue Chronic kidney disease (CKD) stage G1/A2, glomerular filtration rate (GFR) equal to or greater than 90 mL/min/1.73 square meter and albuminuria creatinine ratio between 30-299 mg/g ED (erectile dysfunction) Edema leg bilateral GERD (gastroesophageal reflux disease) Hepatic steatosis Hyperlipidemia Hypertension Insomnia Prediabetes Past Surgical History: Procedure Laterality Date CT COLONOSCOPY 03/25/2022 CT COLONOSCOPY LAPAROSCOPIC INGUINAL HERNIA REPAIR [address] Holder for tongue cancer PEG TUBE PLACEMENT 04/04/2023 VASECTOMY Social History Tobacco Use Smoking status: Former Current packs/day: 0.00 Types: Cigarettes Start date: 1960 Quit date: 2008 Years since quittin.6 Passive exposure: Past Smokeless tobacco: Never Vaping Use Vaping status: Never Used Substance Use Topics Alcohol use: Not Currently Drug use: Not Currently Family History Problem Relation Age of Onset Coronary artery disease Father Coronary artery disease Brother No Known Allergies Outpatient Medications as of 09/25/2023 Medication Sig famotidine (PEPCID) 20 MG tablet Take 1 (one) tablet (20 mg total) by mouth 2 (two) times a day . furosemide (LASIX) 20 MG tablet Take 1 (one) tablet (20 mg total) by mouth daily . pantoprazole (PROTONIX) 40 MG tablet Take 1 (one) tablet (40 mg total) by mouth daily . rosuvastatin (CRESTOR) 5 MG tablet Take 1 (one) tablet (5 mg total) by mouth daily . SUMAtriptan (IMITREX) 50 MG tablet Take 1 (one) tablet (50 mg total) by mouth every 2 (two) hours as needed for migraine Max of 200 mg in 24hrs, do not treat more than 3 times a week . testosterone (ANDROGEL) 1 % (50 mg/5 gram) GlPk Place 0.05 g on the skin daily . traMADoL (ULTRAM) 50 mg tablet Take 1 (one) tablet (50 mg total) by mouth every 4 (four) hours as needed for pain Take 2 in the morning and 1 at dinner time. . [DISCONTINUED] sertraline (ZOLOFT) 25 MG tablet Take 1 (one) tablet (25 mg total) by mouth daily . [DISCONTINUED] albuterol 90 mcg/actuation inhaler Inhale 2 (two) puffs every 4 (four) hours as needed . (Patient not taking: Reported on 08/19/2022 .) [DISCONTINUED] dutasteride (AVODART) 0.5 mg capsule dutasteride 0.5 mg capsule [DISCONTINUED] esomeprazole (NEXIUM) 40 MG capsule Take 1 (one) capsule (40 mg total) by mouth every morning before breakfast . [DISCONTINUED] sqmjyzvqnz-clYZXWUchc-ecyz (Tribenzor) 40-5-25 mg Tab Take 1 tablet by mouth daily . [DISCONTINUED] omeprazole (PRILOSEC) 20 MG capsule Take 1 (one) capsule (20 mg total) by mouth daily . [DISCONTINUED] pilocarpine (SALAGEN) 5 MG tablet Take 1 (one) tablet (5 mg total) by mouth 3 (three) times a day . [DISCONTINUED] valsartan (DIOVAN) 160 MG tablet Take 1 (one) tablet (160 mg total) by mouth daily . Review of Systems Review of Systems Constitutional: Negative for chills and fever. HENT: Negative for rhinorrhea and sore throat. Respiratory: Negative for cough, chest tightness and shortness of breath. Cardiovascular: Negative for chest pain and leg swelling. Gastrointestinal: Negative for abdominal pain, constipation, diarrhea and vomiting. Endocrine: Negative for cold intolerance, heat intolerance, polydipsia and polyphagia. Genitourinary: Negative for difficulty urinating and dysuria. Musculoskeletal: Negative for myalgias. Skin: Negative for rash. Multiple healing sores to face and bilateral hands due to cryotherapy from dermatology Neurological: Negative for dizziness and weakness. Psychiatric/Behavioral: Negative. Negative for agitation, hallucinations and suicidal ideas. The patient is not nervous/anxious. [id number] Score: 4 (09/25/2023 4:03 PM) Objective: BP 130/82 (BP Location: Right arm, Patient Position: Sitting, BP Cuff Size: Adult) Pulse (!) 57 Temp 98.9 F (37.2 C) (Temporal) Resp 16 Ht 6' 1 Wt 76.9 kg (169 lb 9.6 oz) SpO2 90% BMI 22.38 kg/m Physical Exam Constitutional: General: He is not in acute distress. Appearance: Normal appearance. He is not ill-appearing. HENT: Head: Normocephalic. Right Ear: External ear normal. Left Ear: External ear normal. Ears: Comments: Bilateral hearing aids Eyes: Conjunctiva/sclera: Conjunctivae normal. Neck: Comments: Multiple surgical scars present Cardiovascular: Rate and Rhythm: Normal rate and regular rhythm. Pulses: Normal pulses. Heart sounds: Normal heart sounds. Pulmonary: Effort: Pulmonary effort is normal. No respiratory distress. Breath sounds: Normal breath sounds. Abdominal: General: Abdomen is flat. Bowel sounds are normal. Palpations: Abdomen is soft. Comments: PEG tube present, no surrounding erythema, or rash Musculoskeletal: Right lower leg: Edema present. Left lower leg: Edema present. Skin: Comments: Vascular discoloration noted to LE No obvious rashes to exposed skin Multiple healing sores to face and bilateral hands due to cryotherapy from dermatology Neurological: Mental Status: He is alert and oriented to person, place, and time. Psychiatric: Mood and Affect: Mood normal. Behavior: Behavior normal. Thought Content: Thought content normal. Judgment: Judgment normal. Assessment/Plan: Problem List Items Addressed This Visit History of tongue cancer Pharyngoesophageal dysphagia Xerostomia due to radiotherapy S/P percutaneous endoscopic gastrostomy (PEG) tube placement (HCC) Encouraged to continue to follow-up with Dr. Brandon from oncology and Dr. Holder with ENT encouraged to complete scans in January with Dr. Brandon continue on medication as appropriate discussed how to probably administer medication through PEG tube. Hypertension Discussed possible complications of increased blood pressure, including but not limited to risk of heart disease, stroke, and kidney disease. Discussed our goal is to keep BP below 130/85, and maintain healthy weight. He is no longer taking any medication for his blood pressure and it has been controlled per and patient. He is taking Lasix 20 mg daily for the swelling in his lower legs discussed with the patient and his that would like to repeat electrolyte panel to ensure that electrolytes are stable since starting the Lasix 2 months ago also discussed with patient and that would like to check up on the kidney function lab orders were sent for CMP and magnesium level patient and verbalized understanding and agreed with plan of care to check those laboratory levels. Gastroesophageal reflux disease Acid reflux discussed with patient. Denies any breakthrough symptoms. Continue to take medications as directed. If warning signs arise such as coughing up blood or blood in stool, epigastric pain, increased heartburn symptoms or increased belching to contact office right away. Patient and expressed concern regarding the Protonix granules as it is difficult to administer that through the PEG tube therefore they are requesting for alternative medication patient is already on Pepcid 40 mg a day as well. Discussed that will get ahold of them for medication alternative, after I speak with pharmacy. Did discuss how to properly administer medication through the PEG tube patient and verbalized understanding Hyperlipidemia Discussed importance of maintain LDL level at specified goal. Discussed risk factors associated with increased lipids including but not limited to CVA and MO. Patient and were questioning if he should continue on the Crestor 5 mg discussed with patient and the risk of elevated cholesterol levels last lipid level available was in 2022 we will repeat lipid level and assess discussed with patient and that due to his past medical history of smoking and his family history of cardiac disease that it may be beneficial to continue on the Crestor 5 mg patient and in agreement with plan of care will notify with results of lipid levels. Edema of both lower extremities Discussed with patient and that can continue Lasix for now but would like to assess kidney function and electrolytes order placed for CMP magnesium will notify with results Centrilobular emphysema (HCC) Encouraged to continue to follow-up with director of veterans affairs. Will notify of results of lab work ordered today, otherwise f/u in 3-6 months or sooner if concerns arise. Portions of the note was constructed by using [employer]. *Total encounter time today was over 50 minutes. This time includes review of past tests/notes, obtaining patient history, performing a medically necessary exam, counseling the patient, ordering tests/procedures/medications, documentation, and care coordination. Electronically signed by JERAD Verdin 4:54 PM documented in this encounter [facility] 09-01-2023 History of Present illness Narrative Progress Note Amy Dino is here for Chief Complaint Patient presents with Hypertension Edema Hypertension: He denies chest pain, denies headaches, and he denies dizziness, while being on his medications. He denies checking his BP's at home. Current medication/treatments: NONE BP Readings from Last 3 Encounters: 09/01/23 108/72 08/26/23 118/80 08/07/23 92/60 Edema: Located on his legs/feet and he noticed it a few month(s) ago. He denies seeping, denies redness, and He denies pain. He states: no to trying elevation, and no to trying elastic stockings/obed hose for treatment. Bilateral legs with noted improvement. Review of Systems Cardiovascular: Positive for leg swelling. All other systems reviewed and are negative. Noted Improvement Progress Note Amy Dino is here for Chief Complaint Patient presents with Hypertension Edema Hypertension: He denies chest pain, denies headaches, and he denies dizziness, while being on his medications. He denies checking his BP's at home. Current medication/treatments: NONE BP Readings from Last 3 Encounters: 09/01/23 108/72 08/26/23 118/80 08/07/23 92/60 Edema: Located on his legs/feet and he noticed it a few month(s) ago. He denies seeping, denies redness, and He denies pain. He states: no to trying elevation, and no to trying elastic stockings/obed hose for treatment. Bilateral legs with noted improvement. Review of Systems Cardiovascular: Positive for leg swelling. All other systems reviewed and are negative. Noted Improvement Amy Sun is here for Chief Complaint Patient presents with Hypertension Edema HPI: Amy Sun is a 73-year-old man who presents to the office for hypertension and edema follow-up Hypertension This is a chronic problem. The current episode started more than 1 year ago. The problem is controlled. Associated symptoms include peripheral edema. Pertinent negatives include no chest pain. There are no associated agents to hypertension. Risk factors for coronary artery disease include dyslipidemia and male gender. Past treatments include angiotensin blockers. The current treatment provides significant improvement. There are no compliance problems. There is no history of angina or CAD/MO. Edema This is a chronic problem. The current episode started more than 1 month ago. The problem has been resolved. Pertinent negatives include no chest pain. Treatments tried: lasix. The treatment provided significant relief. Allergies: No Known Allergies Current Medications: Current Outpatient Medications: Albuterol (2.5 MG/3ML) 0.083% inhalation solution, Take 3 mL by nebulization every 6 hours as needed for Shortness of Breath., Disp: 360 mL, Rfl: 5 Albuterol 108 (90 Base) MCG/ACT Aero Soln inhaler, Inhale 2 puffs every 4 hours as needed for Shortness of Breath, Respiratory Distress or Wheezing., Disp: 18 g, Rfl: 3 FIBER PO, 80ml/hr of Compleat 1.5 continuously for 24 hours. Use 1 carton of Benecalorie daily. Flush with 200ml water four times per day., Disp: , Rfl: furOSEmide (Lasix) 20 MG tablet, Take 1 tablet by mouth daily., Disp: 90 tablet, Rfl: 1 Pantoprazole (Protonix) [address] fracno MCKEON, Take 1 tablet by mouth daily., Disp: 90 tablet, Rfl: 1 Rosuvastatin (Crestor) 5 MG tablet, Take 1 tablet by mouth daily., Disp: 90 tablet, Rfl: 1 Sertraline (Zoloft) 25 MG tablet, Take 1 tablet by mouth daily., Disp: 90 tablet, Rfl: 1 SPACER FOR INHALER PRESCRIPTION, Use with inhaler as directed, Disp: 1 Each, Rfl: 0 Testosterone 25 MG/2.5GM (1%) Gel gel, Place 2.5 g on skin daily., Disp: 225 g, Rfl: 0 traMADol (Ultram) 50 MG tablet, Take 1 tablet by mouth every 4 hours as needed., Disp: 180 tablet, Rfl: 1 Valsartan (Diovan) 160 MG tablet, Take 1 tablet by mouth daily. Check Blood pressure every day. If systolic blood pressure in > 130, then give 80 mg of valsartan (1/2 tablet), if < 130 then hold blood pressure medication. 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 Chemo/RT with Cisplatin and RT and Ethyol. RT completed 02/28/09. family history includes Coronary Artery Disease in an other family member; Heart Disease - Other in his brother, father, and another family member; No known problems in his mother. reports that he has quit smoking. His smoking use included cigarettes. He has never used smokeless tobacco. He reports that he does not drink alcohol and does not use drugs. Past Surgical History: Procedure Laterality Date EGD W/ PLACEMENT OR REPLACEMENT PEG 04/04/2023 NECK SURGERY 2008 for cancer INGUINAL HERNIA REPAIR 1988 REMOVAL CATARACT (PEM) Bilateral VASECTOMY Recent Labs: No results found for this or any previous visit (from the past 24 hour(s)). Recent Imaging: No images are attached to the encounter. Physical Exam Physical Exam Assessment & Plan Bill was seen today for hypertension and edema. Diagnoses and all orders for this visit: Benign hypertension Localized edema - furOSEmide (Lasix) 20 MG tablet; Take 1 tablet by mouth daily. ICD-10-CM 1. Benign hypertension I10 2. Localized edema R60.0 I would like to see Amy Dino back in 3 month(s) Gunjan Godoy MD 09/01/2023 I spent at least 10 minutes in face to face time with patient, more than 50% of that time was spent on counseling and coordination of care. Plan discussed using plain language, and agreed to by rock dust sprayer, and patient. Understanding in both rock dust sprayer's and (when possible) patient's, verified by their paraphrasing them back to physician Total time: 15 minutes Pre-visit Charting time; min + Face to Face time: min + Post Visit Documentation Time: min = Total Time: Min documented in this encounter [facility] 08-26-2023 Evaluation + Plan note Associated Problem(s): Aspiration pneumonia of both lungs - admitted 06/13- DC Summary Reviewed: Aspn PNA bilat. - IV atb, steroids; O2 weaned off; continuous tube feeds at home was set-up. DC w/ emp Levaquin, Prednisone taper. Details as noted. CT Chest 06/14/2023 IMPRESSION: 1. Increasing nodular densities right lower lobe most likely inflammatory, correlate for pneumonitis/pneumonia. Prominent gas in the esophagus suggesting reflux, question aspiration pneumonia. 2. Enlarging pleural-based density containing small amounts of gas adjacent to the inflammatory density in the right lower lobe noted above. Seen in the posterior inferior medial right chest centered at the T10-T11 level. Question whether this a chronic inflammatory process within the lung or adjacent pleura. There is no adjacent bony erosion or increasing pleural effusion. Has been present previously of variable size, large larger on 05/09/2023 and decreased on 05/24/2023. - 07/18/23 CT chest w/ c [facility] IMPRESSION: 1. Since 06/14/2023, mild increase in multifocal tree-in-bud opacities, most pronounced within the right lower lobe, and to a lesser degree within the right middle lobe and left lower lobe, compatible with infection/inflammation. The distribution is consistent with aspiration. 2. Persistent distal bronchiolar mucous plugging within the right lower lobe. Dependent secretions are present within the right mainstem bronchus and bronchus intermedius. 3. Unchanged mildly enlarged mediastinal lymph nodes. - clinically improved; s/p emp Levaquin - aspn precautions; on tube feeds - ffup CT for resolution [facility] 08-26-2023 Miscellaneous Notes Associated Problem(s): Aspiration pneumonia of both lungs - admitted 06/13- DC Summary Reviewed: Aspn PNA bilat. - IV atb, steroids; O2 weaned off; continuous tube feeds at home was set-up. DC w/ emp Levaquin, Prednisone taper. Details as noted. CT Chest 06/14/2023 IMPRESSION: 1. Increasing nodular densities right lower lobe most likely inflammatory, correlate for pneumonitis/pneumonia. Prominent gas in the esophagus suggesting reflux, question aspiration pneumonia. 2. Enlarging pleural-based density containing small amounts of gas adjacent to the inflammatory density in the right lower lobe noted above. Seen in the posterior inferior medial right chest centered at the T10-T11 level. Question whether this a chronic inflammatory process within the lung or adjacent pleura. There is no adjacent bony erosion or increasing pleural effusion. Has been present previously of variable size, large larger on 05/09/2023 and decreased on 05/24/2023. - 07/18/23 CT chest w/ c [facility] IMPRESSION: 1. Since 06/14/2023, mild increase in multifocal tree-in-bud opacities, most pronounced within the right lower lobe, and to a lesser degree within the right middle lobe and left lower lobe, compatible with infection/inflammation. The distribution is consistent with aspiration. 2. Persistent distal bronchiolar mucous plugging within the right lower lobe. Dependent secretions are present within the right mainstem bronchus and bronchus intermedius. 3. Unchanged mildly enlarged mediastinal lymph nodes. - clinically improved; s/p emp Levaquin - aspn precautions; on tube feeds - ffup CT for resolution Associated Problem(s): Mass of pleura - 07/18/23 CT chest w/ c [facility] IMPRESSION: 1. Since 06/14/2023, mild increase in multifocal tree-in-bud opacities, most pronounced within the right lower lobe, and to a lesser degree within the right middle lobe and left lower lobe, compatible with infection/inflammation. The distribution is consistent with aspiration. 2. Persistent distal bronchiolar mucous plugging within the right lower lobe. Dependent secretions are present within the right mainstem bronchus and bronchus intermedius. 3. Unchanged mildly enlarged mediastinal lymph nodes. - RLL medial juxtapleural atelectasis, opacity noted in body of report; prob Benign postinflammatory; but w/ smoking hx - ffup CT for stability, resolution - PET, biopsy, prn, as indic - further evaluation, management pending results, clinical course. - Diagnostic (malignant vs benign) and management options discussed at length w/ pt; questions answered; and pt stated understanding and agreement. Associated Problem(s): Multiple lung nodules on CT - Surveillance Cts, imaging as per Onc Dr. Brandon [facility]. - 02/18/23 CT Chest w/ c [facility] IMPRESSION: 1. Extensive branching [id number]-type micronodules are present in the right lower lobe and right middle lobe, and to a lesser extent in the left lower lobe. This is stable to slightly progressed from the CT performed on 02/05/2023, and compatible with an infectious or inflammatory bronchiolitis. 2. The newly noted 8mm right lower lobe nodule seen on 02/05/2023 has slightly decreased in size to 6 mm on today's study, and is thus presumably related to the infectious/inflammatory bronchiolitis. The newly noted cluster of 4 to 5 mm nodules seen in the right lower lobe on 02/05/2023 is unchanged on today's examination and is likely infectious or inflammatory in etiology as well. A follow-up chest CT is recommended following treatment for infection, to confirm resolution. 3. Additional incidental findings are detailed above. - 03/21/[address] [facility] [address] Brandon: ASSESSMENT / PLAN: 1. 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 He is due to see Dr. Holder. 2. Weight loss. Found to have pharyngoesophageal dysphagia. He has been referred for a PEG. He saw Dr. Payan and they decided to defer on the peg. He reports that his appetite has improved. He is aware the possible CT findings could represent aspiration. Patient was seen by speech therapy on 03/04/2023. No safe diet was recommended the patient and the understand risks of continued feeding. Will continue to follow. 3. Lung cancer screening/Nodule. He quit smoking in 2008 but prior to that had a 3 ppd for [address] scans performed while hospitalized in February. He again was found to have a trach in the right lower lobe. Overall, the lung was suspected to represent pneumonia. I will repeat CAT scans in 3 months to ensure clearing. 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 5. Right Kidney.had MRI dated March 12, 2023. This showed multiple bilateral renal cysts. Predominant Bosniak 1 and Bosniak 2. Some of these lesions are too Femara to fully characterize but there are no overtly suspicious renal masses. - 07/18/23 CT chest w/ c [facility] IMPRESSION: 1. Since 06/14/2023, mild increase in multifocal tree-in-bud opacities, most pronounced within the right lower lobe, and to a lesser degree within the right middle lobe and left lower lobe, compatible with infection/inflammation. The distribution is consistent with aspiration. 2. Persistent distal bronchiolar mucous plugging within the right lower lobe. Dependent secretions are present within the right mainstem bronchus and bronchus intermedius. 3. Unchanged mildly enlarged mediastinal lymph nodes. - 07/23/[address] [facility] [address] Brandon Reviewed: Since her last visit, patient reports that he has been seen by Dr. Rivas that time to discuss possible vocal cord fillers. Patient reports he is not interested. In addition patient has been seen by speech therapy. This has also been stabilized. He continues to use his feeding tube. -- ASSESSMENT / PLAN: 1. 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 He is due to see Dr. Holder. 2. Weight loss. Patient is status post PEG. Patient is been evaluated by nutrition. He is receiving additional supplementation. He is having more trouble aspiration. 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 Patient has been evaluated by ENT. Patient was seen by Dr. Rivas. They are talking about vocal cord filler. No clear evidence of malignancy. Patient return to see me in 6 months. 3. Increasing nodular densities right lower lobe. This would likely represent aspiration however given the severity we will repeat CT scans in 6 months. 4. Pleural-based density. Previously mentioned pleural-based lesion is no longer seen or mentioned on this CT. I will ask for direct comparison. 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 6. Right Kidney.had MRI dated March 12, 2023. This showed multiple bilateral renal cysts. Predominant Bosniak 1 and Bosniak 2. Associated Problem(s): Malignant neoplasm of base of tongue - hx of Squamous cell CA Tongue, s/p PEG; hx of Dysphagia and Aspn PNA. - ff'd by [facility] Onc Dr. Brandon; ENT Dr. Holder - 03/21/[address] [facility] [address] Brandon: ASSESSMENT / PLAN: 1. 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 He is due to see Dr. Holder. 2. Weight loss. Found to have pharyngoesophageal dysphagia. He has been referred for a PEG. He saw Dr. Payan and they decided to defer on the peg. He reports that his appetite has improved. He is aware the possible CT findings could represent aspiration. Patient was seen by speech therapy on 03/04/2023. No safe diet was recommended the patient and the understand risks of continued feeding. Will continue to follow. 3. Lung cancer screening/Nodule. He quit smoking in 2008 but prior to that had a 3 ppd for [address] scans performed while hospitalized in February. He again was found to have a trach in the right lower lobe. Overall, the lung was suspected to represent pneumonia. I will repeat CAT scans in 3 months to ensure clearing. 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 5. Right Kidney.had MRI dated March 12, 2023. This showed multiple bilateral renal cysts. Predominant Bosniak 1 and Bosniak 2. Some of these lesions are too Femara to fully characterize but there are no overtly suspicious renal masses. - 07/23/[address] [facility] [address] Brandon Reviewed: Since her last visit, patient reports that he has been seen by Dr. Rivas that time to discuss possible vocal cord fillers. Patient reports he is not interested. In addition patient has been seen by speech therapy. This has also been stabilized. He continues to use his feeding tube. -- ASSESSMENT / PLAN: 1. 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 He is due to see Dr. Holder. 2. Weight loss. Patient is status post PEG. Patient is been evaluated by nutrition. He is receiving additional supplementation. He is having more trouble aspiration. 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 Patient has been evaluated by ENT. Patient was seen by Dr. Rivas. They are talking about vocal cord filler. No clear evidence of malignancy. Patient return to see me in 6 months. 3. Increasing nodular densities right lower lobe. This would likely represent aspiration however given the severity we will repeat CT scans in 6 months. 4. Pleural-based density. Previously mentioned pleural-based lesion is no longer seen or mentioned on this CT. I will ask for direct comparison. 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 6. Right Kidney.had MRI dated March 12, 2023. This showed multiple bilateral renal cysts. Predominant Bosniak 1 and Bosniak 2. Associated Problem(s): Interstitial lung disease (Resolved 08/26/2023) - 07/18/23 CT chest w/ c [facility]: No significant generalized lung scarring or inflammation (NO diffuse ILD, GGOs, pulmonary fibrosis or definite UIP pattern). IMPRESSION: 1. Since 06/14/2023, mild increase in multifocal tree-in-bud opacities, most pronounced within the right lower lobe, and to a lesser degree within the right middle lobe and left lower lobe, compatible with infection/inflammation. The distribution is consistent with aspiration. 2. Persistent distal bronchiolar mucous plugging within the right lower lobe. Dependent secretions are present within the right mainstem bronchus and bronchus intermedius. 3. Unchanged mildly enlarged mediastinal lymph nodes. Associated Problem(s): COPD (chronic obstructive pulmonary disease) - admitted [facility] 05/24/0707/26/2023 Discharge summary reviewed: PNA, trace hemoptysis - emp Levaquin, Prednisone. Hypoxia - O2 weaned off. AECOPD, HTN, BPH, GERD, Severe PCM malnutrion, s/p PEG, HLD - fmr Smoker; hx of COPD, as per records; was on Albuterol nebs prev. - may have Asthma COPD overlap; PFT 08/2023. - 08/22/2023 PFT: - Spirometry - MODERATELY SEVERE OBSTRUCTION, FEV1/FVC 58%, FEV1 2.03L 58% predicted, FVC 3.53L 74% predicted; w/ SMALL AIRWAY flow limitation. - Significant response to bronchodilator: LARGE response during this testing, as may be seen w/ Asthma, RAD (FEV1 increased 15%). - Lung Volume - HYPERINFLATION, INCREASED TLC 12.03L 167% predicted, RV 8.78L 314% predicted - w/ SEVERE AIR TRAPPING. - Diffusing Capacity: MILDLY REDUCED DLCO 66% predicted, DL/VA 107% (which normalizes when adjusted for lung volume, suggesting probably extraparenchymal cause; e.g., body habitus; may also have emphysema). - Flow Volume Loops - Obstructive pattern; No overt upper airway obstruction pattern. - Consider LAMA/LABA or try triple tx Trelegy, Breztri, or other inhaler regimen, as indic; if feasible; albuterol as needed; use spacer - consider Daliresp subseq as indic., as tolerated; if feasible - may also use duonebs; budesonide+formoterol nebs alternatively - patient benefits from nebulizer treatments - Inhaler technique teaching done/reviewed prev.; rinse mouth after inhaler use, especially steroid inhalers - Smoking cessation reinforced: quit - advised OTC Calcium+Vit D, lifestyle recs for osteoporosis prevention, especially if on frequent or long-term systemic steroids (osteoporosis screening/management as per PCP prn, as indic) - monitor PFT prn, as indicated - monitor imaging prn, Chest radiograph as needed (CT Chest as indicated) - Pulmonary rehab program, if feasible; rec to stay active - Influenza, pneumococcal, COVID19, pulmonary vaccines recommended, updated Associated Problem(s): Centrilobular emphysema Mild ULP; See COPD txs documented in this encounter [facility] 08-26-2023 Evaluation + Plan note Associated Problem(s): Mass of pleura - 07/18/23 CT chest w/ c [facility] IMPRESSION: 1. Since 06/14/2023, mild increase in multifocal tree-in-bud opacities, most pronounced within the right lower lobe, and to a lesser degree within the right middle lobe and left lower lobe, compatible with infection/inflammation. The distribution is consistent with aspiration. 2. Persistent distal bronchiolar mucous plugging within the right lower lobe. Dependent secretions are present within the right mainstem bronchus and bronchus intermedius. 3. Unchanged mildly enlarged mediastinal lymph nodes. - RLL medial juxtapleural atelectasis, opacity noted in body of report; prob Benign postinflammatory; but w/ smoking hx - ffup CT for stability, resolution - PET, biopsy, prn, as indic - further evaluation, management pending results, clinical course. - Diagnostic (malignant vs benign) and management options discussed at length w/ pt; questions answered; and pt stated understanding and agreement. [facility] 08-26-2023 Evaluation + Plan note Associated Problem(s): Multiple lung nodules on CT - Surveillance Cts, imaging as per Onc Dr. Brandon [facility]. - 02/18/23 CT Chest w/ c [facility] IMPRESSION: 1. Extensive branching [id number]-type micronodules are present in the right lower lobe and right middle lobe, and to a lesser extent in the left lower lobe. This is stable to slightly progressed from the CT performed on 02/05/2023, and compatible with an infectious or inflammatory bronchiolitis. 2. The newly noted 8mm right lower lobe nodule seen on 02/05/2023 has slightly decreased in size to 6 mm on today's study, and is thus presumably related to the infectious/inflammatory bronchiolitis. The newly noted cluster of 4 to 5 mm nodules seen in the right lower lobe on 02/05/2023 is unchanged on today's examination and is likely infectious or inflammatory in etiology as well. A follow-up chest CT is recommended following treatment for infection, to confirm resolution. 3. Additional incidental findings are detailed above. - 03/21/[address] [facility] [address] Brandon: ASSESSMENT / PLAN: 1. 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 He is due to see Dr. Holder. 2. Weight loss. Found to have pharyngoesophageal dysphagia. He has been referred for a PEG. He saw Dr. Payan and they decided to defer on the peg. He reports that his appetite has improved. He is aware the possible CT findings could represent aspiration. Patient was seen by speech therapy on 03/04/2023. No safe diet was recommended the patient and the understand risks of continued feeding. Will continue to follow. 3. Lung cancer screening/Nodule. He quit smoking in 2008 but prior to that had a 3 ppd for [address] scans performed while hospitalized in February. He again was found to have a trach in the right lower lobe. Overall, the lung was suspected to represent pneumonia. I will repeat CAT scans in 3 months to ensure clearing. 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 5. Right Kidney.had MRI dated March 12, 2023. This showed multiple bilateral renal cysts. Predominant Bosniak 1 and Bosniak 2. Some of these lesions are too Femara to fully characterize but there are no overtly suspicious renal masses. - 07/18/23 CT chest w/ c [facility] IMPRESSION: 1. Since 06/14/2023, mild increase in multifocal tree-in-bud opacities, most pronounced within the right lower lobe, and to a lesser degree within the right middle lobe and left lower lobe, compatible with infection/inflammation. The distribution is consistent with aspiration. 2. Persistent distal bronchiolar mucous plugging within the right lower lobe. Dependent secretions are present within the right mainstem bronchus and bronchus intermedius. 3. Unchanged mildly enlarged mediastinal lymph nodes. - 07/23/[address] [facility] [address] Brandon Reviewed: Since her last visit, patient reports that he has been seen by Dr. Rivas that time to discuss possible vocal cord fillers. Patient reports he is not interested. In addition patient has been seen by speech therapy. This has also been stabilized. He continues to use his feeding tube. -- ASSESSMENT / PLAN: 1. 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 He is due to see Dr. Holder. 2. Weight loss. Patient is status post PEG. Patient is been evaluated by nutrition. He is receiving additional supplementation. He is having more trouble aspiration. 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 Patient has been evaluated by ENT. Patient was seen by Dr. Rivas. They are talking about vocal cord filler. No clear evidence of malignancy. Patient return to see me in 6 months. 3. Increasing nodular densities right lower lobe. This would likely represent aspiration however given the severity we will repeat CT scans in 6 months. 4. Pleural-based density. Previously mentioned pleural-based lesion is no longer seen or mentioned on this CT. I will ask for direct comparison. 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 6. Right Kidney.had MRI dated March 12, 2023. This showed multiple bilateral renal cysts. Predominant Bosniak 1 and Bosniak 2. [facility] 08-26-2023 Evaluation + Plan note Associated Problem(s): Malignant neoplasm of base of tongue - hx of Squamous cell CA Tongue, s/p PEG; hx of Dysphagia and Aspn PNA. - ff'd by [facility] Onc Dr. Brandon; ENT Dr. Holder - 03/21/[address] [facility] [address] Brandon: ASSESSMENT / PLAN: 1. 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 He is due to see Dr. Holder. 2. Weight loss. Found to have pharyngoesophageal dysphagia. He has been referred for a PEG. He saw Dr. Payan and they decided to defer on the peg. He reports that his appetite has improved. He is aware the possible CT findings could represent aspiration. Patient was seen by speech therapy on 03/04/2023. No safe diet was recommended the patient and the understand risks of continued feeding. Will continue to follow. 3. Lung cancer screening/Nodule. He quit smoking in 2008 but prior to that had a 3 ppd for [address] scans performed while hospitalized in February. He again was found to have a trach in the right lower lobe. Overall, the lung was suspected to represent pneumonia. I will repeat CAT scans in 3 months to ensure clearing. 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 5. Right Kidney.had MRI dated March 12, 2023. This showed multiple bilateral renal cysts. Predominant Bosniak 1 and Bosniak 2. Some of these lesions are too Femara to fully characterize but there are no overtly suspicious renal masses. - 07/23/[address] [facility] [address] Brandon Reviewed: Since her last visit, patient reports that he has been seen by Dr. Rivas that time to discuss possible vocal cord fillers. Patient reports he is not interested. In addition patient has been seen by speech therapy. This has also been stabilized. He continues to use his feeding tube. -- ASSESSMENT / PLAN: 1. 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 He is due to see Dr. Holder. 2. Weight loss. Patient is status post PEG. Patient is been evaluated by nutrition. He is receiving additional supplementation. He is having more trouble aspiration. 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 Patient has been evaluated by ENT. Patient was seen by Dr. Rivas. They are talking about vocal cord filler. No clear evidence of malignancy. Patient return to see me in 6 months. 3. Increasing nodular densities right lower lobe. This would likely represent aspiration however given the severity we will repeat CT scans in 6 months. 4. Pleural-based density. Previously mentioned pleural-based lesion is no longer seen or mentioned on this CT. I will ask for direct comparison. 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 6. Right Kidney.had MRI dated March 12, 2023. This showed multiple bilateral renal cysts. Predominant Bosniak 1 and Bosniak 2. [facility] 08-26-2023 Evaluation + Plan note Associated Problem(s): Interstitial lung disease (Resolved 08/26/2023) - 07/18/23 CT chest w/ c [facility]: No significant generalized lung scarring or inflammation (NO diffuse ILD, GGOs, pulmonary fibrosis or definite UIP pattern). IMPRESSION: 1. Since 06/14/2023, mild increase in multifocal tree-in-bud opacities, most pronounced within the right lower lobe, and to a lesser degree within the right middle lobe and left lower lobe, compatible with infection/inflammation. The distribution is consistent with aspiration. 2. Persistent distal bronchiolar mucous plugging within the right lower lobe. Dependent secretions are present within the right mainstem bronchus and bronchus intermedius. 3. Unchanged mildly enlarged mediastinal lymph nodes. [facility] 08-26-2023 Evaluation + Plan note Associated Problem(s): COPD (chronic obstructive pulmonary disease) - admitted [facility] 05/24/0707/26/2023 Discharge summary reviewed: PNA, trace hemoptysis - emp Levaquin, Prednisone. Hypoxia - O2 weaned off. AECOPD, HTN, BPH, GERD, Severe PCM malnutrion, s/p PEG, HLD - fmr Smoker; hx of COPD, as per records; was on Albuterol nebs prev. - may have Asthma COPD overlap; PFT 08/2023. - 08/22/2023 PFT: - Spirometry - MODERATELY SEVERE OBSTRUCTION, FEV1/FVC 58%, FEV1 2.03L 58% predicted, FVC 3.53L 74% predicted; w/ SMALL AIRWAY flow limitation. - Significant response to bronchodilator: LARGE response during this testing, as may be seen w/ Asthma, RAD (FEV1 increased 15%). - Lung Volume - HYPERINFLATION, INCREASED TLC 12.03L 167% predicted, RV 8.78L 314% predicted - w/ SEVERE AIR TRAPPING. - Diffusing Capacity: MILDLY REDUCED DLCO 66% predicted, DL/VA 107% (which normalizes when adjusted for lung volume, suggesting probably extraparenchymal cause; e.g., body habitus; may also have emphysema). - Flow Volume Loops - Obstructive pattern; No overt upper airway obstruction pattern. - Consider LAMA/LABA or try triple tx Trelegy, Breztri, or other inhaler regimen, as indic; if feasible; albuterol as needed; use spacer - consider Daliresp subseq as indic., as tolerated; if feasible - may also use duonebs; budesonide+formoterol nebs alternatively - patient benefits from nebulizer treatments - Inhaler technique teaching done/reviewed prev.; rinse mouth after inhaler use, especially steroid inhalers - Smoking cessation reinforced: quit - advised OTC Calcium+Vit D, lifestyle recs for osteoporosis prevention, especially if on frequent or long-term systemic steroids (osteoporosis screening/management as per PCP prn, as indic) - monitor PFT prn, as indicated - monitor imaging prn, Chest radiograph as needed (CT Chest as indicated) - Pulmonary rehab program, if feasible; rec to stay active - Influenza, pneumococcal, COVID19, pulmonary vaccines recommended, updated [facility] 08-26-2023 Evaluation + Plan note Associated Problem(s): Centrilobular emphysema Mild ULP; See COPD txs [facility] 08-26-2023 History of Present illness Narrative Currently smoking or Hx of smoking - former, quit 2008 Oxygen use __ NO __ patient is benefiting from oxygen use. Do you have a CPAP- NO DME company- NA Most recent CT- 07/18/23 Most recent PFT- 08/22/23 Symptoms include: cough Increase in shortness of breath- NO Dyspnea upon exertion- NO Dyspnea at rest- NO Cough- productive- YES Different colors brown but varies Have you had the Covid 19 vaccine- YES Do you need a Medication refill? NO Pt presents for review of COPD Maintenance medication- NO Maintenance inhaler- NO Rescue inhaler- Albuterol Sulfate HFA Nebulizer- Albuterol (Proventil). DEREK 06/04/23. Patient presents for follow-up, COPD. New CT (07/18/23), CXR (06/17/23), PFT and 6mwt (08/22/23) done. Pt states he has hx of tongue cancer. Patient is a 73 y.o. male who came to be evaluated and managed for COPD, FR Hypoxia, Pneumonia hosp 05/2023 Follow-up and Chronic Obstructive Pulmonary Disease . ICD-10-CM 1. Chronic obstructive pulmonary disease, unspecified COPD type J44.9 AMB REFERRAL TO PULMONARY REHAB ALPHA 1 ANTITRYPSIN CBC, EDIF, PLATELET IMMUNOGLOBULIN IGE ALLERGEN PROFILE, MOLD MINI-PANEL ALLERGEN PROFILE 2. Centrilobular emphysema J43.2 3. Interstitial lung disease J84.9 CT CHEST WITHOUT CONTRAST 4. Malignant neoplasm of base of tongue C01 5. Multiple lung nodules on CT R91.8 CT CHEST WITHOUT CONTRAST 6. Mass of pleura J94.8 CT CHEST WITHOUT CONTRAST 7. Aspiration pneumonia of both lower lobes, unspecified aspiration pneumonia type J69.0 8. Reactive airway disease without complication, unspecified asthma severity, unspecified whether persistent J45.909 CBC, EDIF, PLATELET IMMUNOGLOBULIN IGE ALLERGEN PROFILE, MOLD MINI-PANEL ALLERGEN PROFILE Problem List Items Addressed This Visit Malignant neoplasm of base of tongue - hx of Squamous cell CA Tongue, s/p PEG; hx of Dysphagia and Aspn PNA. - ff'd by [facility]c Dr. Brandon; ENT Dr. Holder - 03/21/[address] [facility] [address] Brandon: ASSESSMENT / PLAN: 1. 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 He is due to see Dr. Holder. 2. Weight loss. Found to have pharyngoesophageal dysphagia. He has been referred for a PEG. He saw Dr. Payan and they decided to defer on the peg. He reports that his appetite has improved. He is aware the possible CT findings could represent aspiration. Patient was seen by speech therapy on 03/04/2023. No safe diet was recommended the patient and the understand risks of continued feeding. Will continue to follow. 3. Lung cancer screening/Nodule. He quit smoking in 2008 but prior to that had a 3 ppd for [address] scans performed while hospitalized in February. He again was found to have a trach in the right lower lobe. Overall, the lung was suspected to represent pneumonia. I will repeat CAT scans in 3 months to ensure clearing. 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 5. Right Kidney.had MRI dated March 12, 2023. This showed multiple bilateral renal cysts. Predominant Bosniak 1 and Bosniak 2. Some of these lesions are too Femara to fully characterize but there are no overtly suspicious renal masses. - 07/23/[address] [facility] [address] Brandon Reviewed: Since her last visit, patient reports that he has been seen by Dr. Rivas that time to discuss possible vocal cord fillers. Patient reports he is not interested. In addition patient has been seen by speech therapy. This has also been stabilized. He continues to use his feeding tube. -- ASSESSMENT / PLAN: 1. 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 He is due to see Dr. Holder. 2. Weight loss. Patient is status post PEG. Patient is been evaluated by nutrition. He is receiving additional supplementation. He is having more trouble aspiration. 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 Patient has been evaluated by ENT. Patient was seen by Dr. Rivas. They are talking about vocal cord filler. No clear evidence of malignancy. Patient return to see me in 6 months. 3. Increasing nodular densities right lower lobe. This would likely represent aspiration however given the severity we will repeat CT scans in 6 months. 4. Pleural-based density. Previously mentioned pleural-based lesion is no longer seen or mentioned on this CT. I will ask for direct comparison. 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 6. Right Kidney.had MRI dated March 12, 2023. This showed multiple bilateral renal cysts. Predominant Bosniak 1 and Bosniak 2. Multiple lung nodules on CT - Surveillance Cts, imaging as per Onc Dr. Brandon [facility]. - 02/18/23 CT Chest w/ c [facility] IMPRESSION: 1. Extensive branching [id number]-type micronodules are present in the right lower lobe and right middle lobe, and to a lesser extent in the left lower lobe. This is stable to slightly progressed from the CT performed on 02/05/2023, and compatible with an infectious or inflammatory bronchiolitis. 2. The newly noted 8mm right lower lobe nodule seen on 02/05/2023 has slightly decreased in size to 6 mm on today's study, and is thus presumably related to the infectious/inflammatory bronchiolitis. The newly noted cluster of 4 to 5 mm nodules seen in the right lower lobe on 02/05/2023 is unchanged on today's examination and is likely infectious or inflammatory in etiology as well. A follow-up chest CT is recommended following treatment for infection, to confirm resolution. 3. Additional incidental findings are detailed above. - 03/21/[address] [facility] [address] Brandon: ASSESSMENT / PLAN: 1. 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 He is due to see Dr. Holder. 2. Weight loss. Found to have pharyngoesophageal dysphagia. He has been referred for a PEG. He saw Dr. Payan and they decided to defer on the peg. He reports that his appetite has improved. He is aware the possible CT findings could represent aspiration. Patient was seen by speech therapy on 03/04/2023. No safe diet was recommended the patient and the understand risks of continued feeding. Will continue to follow. 3. Lung cancer screening/Nodule. He quit smoking in 2008 but prior to that had a 3 ppd for [address] scans performed while hospitalized in February. He again was found to have a trach in the right lower lobe. Overall, the lung was suspected to represent pneumonia. I will repeat CAT scans in 3 months to ensure clearing. 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 5. Right Kidney.had MRI dated March 12, 2023. This showed multiple bilateral renal cysts. Predominant Bosniak 1 and Bosniak 2. Some of these lesions are too Femara to fully characterize but there are no overtly suspicious renal masses. - 07/18/23 CT chest w/ c [facility] IMPRESSION: 1. Since 06/14/2023, mild increase in multifocal tree-in-bud opacities, most pronounced within the right lower lobe, and to a lesser degree within the right middle lobe and left lower lobe, compatible with infection/inflammation. The distribution is consistent with aspiration. 2. Persistent distal bronchiolar mucous plugging within the right lower lobe. Dependent secretions are present within the right mainstem bronchus and bronchus intermedius. 3. Unchanged mildly enlarged mediastinal lymph nodes. - 07/23/[address] [facility] [address] Brandon Reviewed: Since her last visit, patient reports that he has been seen by Dr. Rivas that time to discuss possible vocal cord fillers. Patient reports he is not interested. In addition patient has been seen by speech therapy. This has also been stabilized. He continues to use his feeding tube. -- ASSESSMENT / PLAN: 1. 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 He is due to see Dr. Holder. 2. Weight loss. Patient is status post PEG. Patient is been evaluated by nutrition. He is receiving additional supplementation. He is having more trouble aspiration. 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 Patient has been evaluated by ENT. Patient was seen by Dr. Rivas. They are talking about vocal cord filler. No clear evidence of malignancy. Patient return to see me in 6 months. 3. Increasing nodular densities right lower lobe. This would likely represent aspiration however given the severity we will repeat CT scans in 6 months. 4. Pleural-based density. Previously mentioned pleural-based lesion is no longer seen or mentioned on this CT. I will ask for direct comparison. 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 6. Right Kidney.had MRI dated March 12, 2023. This showed multiple bilateral renal cysts. Predominant Bosniak 1 and Bosniak 2. Relevant Orders CT CHEST WITHOUT CONTRAST COPD (chronic obstructive pulmonary disease) - Primary - admitted [facility] 05/24/0707/26/2023 Discharge summary reviewed: PNA, trace hemoptysis - emp Levaquin, Prednisone. Hypoxia - O2 weaned off. AECOPD, HTN, BPH, GERD, Severe PCM malnutrion, s/p PEG, HLD - fmr Smoker; hx of COPD, as per records; was on Albuterol nebs prev. - may have Asthma COPD overlap; PFT 08/2023. - 08/22/2023 PFT: - Spirometry - MODERATELY SEVERE OBSTRUCTION, FEV1/FVC 58%, FEV1 2.03L 58% predicted, FVC 3.53L 74% predicted; w/ SMALL AIRWAY flow limitation. - Significant response to bronchodilator: LARGE response during this testing, as may be seen w/ Asthma, RAD (FEV1 increased 15%). - Lung Volume - HYPERINFLATION, INCREASED TLC 12.03L 167% predicted, RV 8.78L 314% predicted - w/ SEVERE AIR TRAPPING. - Diffusing Capacity: MILDLY REDUCED DLCO 66% predicted, DL/VA 107% (which normalizes when adjusted for lung volume, suggesting probably extraparenchymal cause; e.g., body habitus; may also have emphysema). - Flow Volume Loops - Obstructive pattern; No overt upper airway obstruction pattern. - Consider LAMA/LABA or try triple tx Trelegy, Breztri, or other inhaler regimen, as indic; if feasible; albuterol as needed; use spacer - consider Daliresp subseq as indic., as tolerated; if feasible - may also use duonebs; budesonide+formoterol nebs alternatively - patient benefits from nebulizer treatments - Inhaler technique teaching done/reviewed prev.; rinse mouth after inhaler use, especially steroid inhalers - Smoking cessation reinforced: quit - advised OTC Calcium+Vit D, lifestyle recs for osteoporosis prevention, especially if on frequent or long-term systemic steroids (osteoporosis screening/management as per PCP prn, as indic) - monitor PFT prn, as indicated - monitor imaging prn, Chest radiograph as needed (CT Chest as indicated) - Pulmonary rehab program, if feasible; rec to stay active - Influenza, pneumococcal, COVID19, pulmonary vaccines recommended, updated Relevant Orders AMB REFERRAL TO PULMONARY REHAB ALPHA 1 ANTITRYPSIN CBC, EDIF, PLATELET IMMUNOGLOBULIN IGE ALLERGEN PROFILE, MOLD MINI-PANEL ALLERGEN PROFILE Aspiration pneumonia of both lungs - admitted 06/13- DC Summary Reviewed: Aspn PNA bilat. - IV atb, steroids; O2 weaned off; continuous tube feeds at home was set-up. DC w/ emp Levaquin, Prednisone taper. Details as noted. CT Chest 06/14/2023 IMPRESSION: 1. Increasing nodular densities right lower lobe most likely inflammatory, correlate for pneumonitis/pneumonia. Prominent gas in the esophagus suggesting reflux, question aspiration pneumonia. 2. Enlarging pleural-based density containing small amounts of gas adjacent to the inflammatory density in the right lower lobe noted above. Seen in the posterior inferior medial right chest centered at the T10-T11 level. Question whether this a chronic inflammatory process within the lung or adjacent pleura. There is no adjacent bony erosion or increasing pleural effusion. Has been present previously of variable size, large larger on 05/09/2023 and decreased on 05/24/2023. - 07/18/23 CT chest w/ c [facility] IMPRESSION: 1. Since 06/14/2023, mild increase in multifocal tree-in-bud opacities, most pronounced within the right lower lobe, and to a lesser degree within the right middle lobe and left lower lobe, compatible with infection/inflammation. The distribution is consistent with aspiration. 2. Persistent distal bronchiolar mucous plugging within the right lower lobe. Dependent secretions are present within the right mainstem bronchus and bronchus intermedius. 3. Unchanged mildly enlarged mediastinal lymph nodes. - clinically improved; s/p emp Levaquin - aspn precautions; on tube feeds - ffup CT for resolution Centrilobular emphysema Mild ULP; See COPD txs Mass of pleura - 07/18/23 CT chest w/ c [facility] IMPRESSION: 1. Since 06/14/2023, mild increase in multifocal tree-in-bud opacities, most pronounced within the right lower lobe, and to a lesser degree within the right middle lobe and left lower lobe, compatible with infection/inflammation. The distribution is consistent with aspiration. 2. Persistent distal bronchiolar mucous plugging within the right lower lobe. Dependent secretions are present within the right mainstem bronchus and bronchus intermedius. 3. Unchanged mildly enlarged mediastinal lymph nodes. - RLL medial juxtapleural atelectasis, opacity noted in body of report; prob Benign postinflammatory; but w/ smoking hx - ffup CT for stability, resolution - PET, biopsy, prn, as indic - further evaluation, management pending results, clinical course. - Diagnostic (malignant vs benign) and management options discussed at length w/ pt; questions answered; and pt stated understanding and agreement. Relevant Orders CT CHEST WITHOUT CONTRAST RESOLVED: Interstitial lung disease - 07/18/23 CT chest w/ c [facility]: No significant generalized lung scarring or inflammation (NO diffuse ILD, GGOs, pulmonary fibrosis or definite UIP pattern). IMPRESSION: 1. Since 06/14/2023, mild increase in multifocal tree-in-bud opacities, most pronounced within the right lower lobe, and to a lesser degree within the right middle lobe and left lower lobe, compatible with infection/inflammation. The distribution is consistent with aspiration. 2. Persistent distal bronchiolar mucous plugging within the right lower lobe. Dependent secretions are present within the right mainstem bronchus and bronchus intermedius. 3. Unchanged mildly enlarged mediastinal lymph nodes. Relevant Orders CT CHEST WITHOUT CONTRAST Other Visit Diagnoses Reactive airway disease without complication, unspecified asthma severity, unspecified whether persistent Relevant Orders CBC, EDIF, PLATELET IMMUNOGLOBULIN IGE ALLERGEN PROFILE, MOLD MINI-PANEL ALLERGEN PROFILE HPI 08/26/23: not in ae, on inhaler albuterol. Imaging, PFT, 6mwt, labs, Notes Reviewed. - 08/07/23 PCP ffup Reviewed. - 07/23/[address] [facility] [address] Brandon Reviewed: Since her last visit, patient reports that he has been seen by Dr. Rivas that time to discuss possible vocal cord fillers. Patient reports he is not interested. In addition patient has been seen by speech therapy. This has also been stabilized. He continues to use his feeding tube. -- ASSESSMENT / PLAN: 1. 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 He is due to see Dr. Holder. 2. Weight loss. Patient is status post PEG. Patient is been evaluated by nutrition. He is receiving additional supplementation. He is having more trouble aspiration. 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 Patient has been evaluated by ENT. Patient was seen by Dr. Rivas. They are talking about vocal cord filler. No clear evidence of malignancy. Patient return to see me in 6 months. 3. Increasing nodular densities right lower lobe. This would likely represent aspiration however given the severity we will repeat CT scans in 6 months. 4. Pleural-based density. Previously mentioned pleural-based lesion is no longer seen or mentioned on this CT. I will ask for direct comparison. 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 6. Right Kidney.had MRI dated March 12, 2023. This showed multiple bilateral renal cysts. Predominant Bosniak 1 and Bosniak 2. - admitted 06/13- DC Summary Reviewed: Aspn PNA bilat. - IV atb, steroids; O2 weaned off; continuous tube feeds at home was set-up. DC w/ emp Levaquin, Prednisone taper. Details as noted. -- Discharge Diagnoses: Principal Problem: Aspiration pneumonia of both lungs Active Problems: Multiple lung nodules on CT Inadequate energy intake related to decreased ability to consume sufficient energy as evidenced by hx of throat cancer and current total nutrition provided via PEG. Leukocytosis Squamous cell carcinoma of tongue S/P percutaneous endoscopic gastrostomy (PEG) tube placement GERD (gastroesophageal reflux disease) Acute respiratory failure with hypoxia COPD exacerbation Cough with hemoptysis Mass of pleura Brief Summary of Hospital Course: Mr. Amy Sun is a 72 year old male with a past medical history including hypertension, hyperlipidemia, GERD, BPH, DJD, COPD, hepatic steatosis, insomnia, tongue cancer, pharyngeoesophageal dysphagia S/P PEG tube placement and former tobacco abuse who presented to ER with complaints of dyspnea. Patient's temperature was 100.5 on arrival. He was 82% on room air. CT chest did show multifocal pneumonia and suggest aspiration. Patient placed on HCAP antibiotic coverage and admitted to floor for further treatment and care. While hospitalized patients labs and VS were monitored and additional testing was ordered and reviewed. He was weaned off oxygen back to room air and has remained stable. Blood cultures drawn on arrival have remained negative to date and his MRSA screen on arrival was determined negative. Patient was treated with IV antibiotics and systemic steroids which have been transitioned to PO for completion of course for treatment of pneumonia. He was seen by tourist home keeper and recommended for continuous feeds which maybe more beneficial to reduce incidence of aspiration form feedings. learning services coordinator were consulted and discharge arrangements were discussed and patient was set up for discharge with continuous tube feedings but did deny all other needs from social work coordinator post discharge. This morning he is afebrile on room air and his white count is trending down. He states doing well and readiness to go home. He will be discharged today in stable condition with instructions to resume medications as listed below and follow up with his PCP in 1 week. Prescriptions have been sent to patients pharmacy of record except tube feed prescription which will be sent by case management to [facility]. 06/04/23 - admitted [facility] 05/24/0707/26/2023 Discharge summary reviewed: PNA, trace hemoptysis - emp Levaquin, Prednisone. Hypoxia - O2 weaned off. AECOPD, HTN, BPH, GERD, Severe PCM malnutrion, s/p PEG, HLD - fmr Smoker; hx of COPD, as per records; was on Albuterol nebs prev. - hx of Squamous cell CA Tongue, s/p PEG; hx of Dysphagia and Aspn PNA. - 03/21/[address] [facility] [address] Brandon: ASSESSMENT / PLAN: 1. 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 He is due to see Dr. Holder. 2. Weight loss. Found to have pharyngoesophageal dysphagia. He has been referred for a PEG. He saw Dr. Payan and they decided to defer on the peg. He reports that his appetite has improved. He is aware the possible CT findings could represent aspiration. Patient was seen by speech therapy on 03/04/2023. No safe diet was recommended the patient and the understand risks of continued feeding. Will continue to follow. 3. Lung cancer screening/Nodule. He quit smoking in 2008 but prior to that had a 3 ppd for [address] scans performed while hospitalized in February. He again was found to have a trach in the right lower lobe. Overall, the lung was suspected to represent pneumonia. I will repeat CAT scans in 3 months to ensure clearing. 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 5. Right Kidney.had MRI dated March 12, 2023. This showed multiple bilateral renal cysts. Predominant Bosniak 1 and Bosniak 2. Some of these lesions are too Femara to fully characterize but there are no overtly suspicious renal masses. Current Outpatient Medications: Spacer/Aero-Holding Chambers (EasiVent) [facility] [place], As directed. use with inhaler, Disp: , Rfl: Albuterol (2.5 MG/3ML) 0.083% inhalation solution, Take 3 mL by nebulization every 6 hours as needed for Shortness of Breath., Disp: 360 mL, Rfl: 5 Albuterol 108 (90 Base) MCG/ACT Aero Soln inhaler, Inhale 2 puffs every 4 hours as needed for Shortness of Breath, Respiratory Distress or Wheezing., Disp: 18 g, Rfl: 3 furOSEmide (Lasix) 20 MG tablet, Take 1 tablet by mouth daily., Disp: 90 tablet, Rfl: 0 Pantoprazole (Protonix) [address] tablet DR, Take 1 tablet by mouth daily., Disp: 90 tablet, Rfl: 1 pilocarpine 2 % Solution, 1 drop 3 times daily as needed for Other (PO for secretions)., Disp: , Rfl: Rosuvastatin (Crestor) 5 MG tablet, Take 1 tablet by mouth daily., Disp: 90 tablet, Rfl: 1 Sertraline (Zoloft) 25 MG tablet, Take 1 tablet by mouth daily., Disp: 90 tablet, Rfl: 1 SPACER FOR INHALER PRESCRIPTION, Use with inhaler as directed, Disp: 1 Each, Rfl: 0 Testosterone 25 MG/2.5GM (1%) Gel gel, Place 2.5 g on skin daily., Disp: 225 g, Rfl: 0 traMADol (Ultram) 50 MG tablet, Take 1 tablet by mouth every 4 hours as needed., Disp: 180 tablet, Rfl: 1 Valsartan (Diovan) 160 MG tablet, Take 1 tablet by mouth daily. Check Blood pressure every day. If systolic blood pressure in > 130, then give 80 mg of valsartan (1/2 tablet), if < 130 then hold blood pressure medication. (Patient not taking: Reported on 08/07/2023), Disp: 30 tablet, Rfl: 2 Past Medical History: Diagnosis Date Abnormal glucose Bilateral leg edema BPH without urinary obstruction Chronic kidney disease (CKD), stage I Degenerative joint disease Enthesopathy Essential hypertension, benign Fatigue Former smoker 2 PPD x46 years, quite 09/19/2008 GERD (gastroesophageal reflux disease) Hepatic steatosis Hyperlipidemia Impotence of organic origin Insomnia Obesity Testicular hypofunction Tongue cancer Stage IIB, T2, N1, 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 Chemo/RT with Cisplatin and RT and Ethyol. RT completed 02/28/09. Past Surgical History: Procedure Laterality Date EGD W/ PLACEMENT OR REPLACEMENT PEG 04/04/2023 NECK SURGERY 2009 for cancer INGUINAL HERNIA REPAIR 1988 REMOVAL CATARACT (PEM) Bilateral VASECTOMY Social History Tobacco Use Smoking status: Former Types: Cigarettes Smokeless tobacco: Never Substance Use Topics Alcohol use: No Family History Problem Relation Age of Onset No known problems Mother Heart Disease - Other Father Heart Disease - Other Brother Heart Disease - Other Other Coronary Artery Disease Other No Known Allergies Review of Systems Currently smoking or Hx of smoking - former, quit 2008 Oxygen use __ NO __ patient is benefiting from oxygen use. Do you have a CPAP- NO DME company- NA Most recent CT- 07/18/23 Most recent PFT- 08/22/23 Symptoms include: cough Increase in shortness of breath- NO Dyspnea upon exertion- NO Dyspnea at rest- NO Cough- productive- YES Different colors brown but varies Have you had the Covid 19 vaccine- YES Do you need a Medication refill? NO Pt presents for review of COPD Maintenance medication- NO Maintenance inhaler- NO Rescue inhaler- Albuterol Sulfate HFA Nebulizer- Albuterol (Proventil). DEREK 06/04/23. Patient presents for follow-up, COPD. New CT (07/18/23), CXR (06/17/23), PFT and 6mwt (08/22/23) done. Pt states he has hx of tongue cancer. Vitals: 08/26/23 1414 BP: 118/80 Pulse: 68 Resp: 14 SpO2: 92% Weight: 76.9 kg (169 lb 9.6 oz) Height: 1.854 m (6' 1) Vital Signs Reviewed as noted. Physical Exam Vitals and nursing note reviewed. Constitutional: General: He is not in acute distress. HENT: Head: Normocephalic and atraumatic. Right Ear: External ear normal. Left Ear: External ear normal. Nose: Nose normal. Mouth/Throat: Mouth: Mucous membranes are moist. Pharynx: Oropharynx is clear. No oropharyngeal exudate or posterior oropharyngeal erythema. Eyes: General: No scleral icterus. Neck: Vascular: No JVD. Trachea: No tracheal deviation. Cardiovascular: Rate and Rhythm: Normal rate and regular rhythm. Heart sounds: Normal heart sounds. Pulmonary: Effort: Pulmonary effort is normal. Abdominal: Comments: PEG Genitourinary: Comments: Deferred Musculoskeletal: Cervical back: Neck supple. Right lower leg: No edema. Left lower leg: No edema. Lymphadenopathy: Cervical: No cervical adenopathy. Skin: General: Skin is warm and dry. Coloration: Skin is not jaundiced. Neurological: Mental Status: He is alert and oriented to person, place, and time. Psychiatric: Mood and Affect: Mood normal. Behavior: Behavior normal. I personally reviewed selected chart notes, results, interpreted tests, imaging today before seeing the pt; reviewed and discussed w/ pt, questions answered - 08/22/23 6MWT: RT NOTES ... Had a difficult time getting spo2 due to poor circulation. Attempted numerous times on each hand. - 08/22/2023 PFT: - Spirometry - MODERATELY SEVERE OBSTRUCTION, FEV1/FVC 58%, FEV1 2.03L 58% predicted, FVC 3.53L 74% predicted; w/ SMALL AIRWAY flow limitation. - Significant response to bronchodilator: LARGE response during this testing, as may be seen w/ Asthma, RAD (FEV1 increased 15%). - Lung Volume - HYPERINFLATION, INCREASED TLC 12.03L 167% predicted, RV 8.78L 314% predicted - w/ SEVERE AIR TRAPPING. - Diffusing Capacity: MILDLY REDUCED DLCO 66% predicted, DL/VA 107% (which normalizes when adjusted for lung volume, suggesting probably extraparenchymal cause; e.g., body habitus; may also have emphysema). - Flow Volume Loops - Obstructive pattern; No overt upper airway obstruction pattern. - 07/18/23 CT chest w/ c [facility] IMPRESSION: 1. Since 06/14/2023, mild increase in multifocal tree-in-bud opacities, most pronounced within the right lower lobe, and to a lesser degree within the right middle lobe and left lower lobe, compatible with infection/inflammation. The distribution is consistent with aspiration. 2. Persistent distal bronchiolar mucous plugging within the right lower lobe. Dependent secretions are present within the right mainstem bronchus and bronchus intermedius. 3. Unchanged mildly enlarged mediastinal lymph nodes. CT Chest 06/14/2023 IMPRESSION: 1. Increasing nodular densities right lower lobe most likely inflammatory, correlate for pneumonitis/pneumonia. Prominent gas in the esophagus suggesting reflux, question aspiration pneumonia. 2. Enlarging pleural-based density containing small amounts of gas adjacent to the inflammatory density in the right lower lobe noted above. Seen in the posterior inferior medial right chest centered at the T10-T11 level. Question whether this a chronic inflammatory process within the lung or adjacent pleura. There is no adjacent bony erosion or increasing pleural effusion. Has been present previously of variable size, large larger on 05/09/2023 and decreased on 05/24/2023. - 05/24/23 CTPE: RLL mucus plugging; patchy infiltrates BLL; mild ULP emphysematous changes, central bronchial thickening. IMPRESSION: 1. No change in the right lower lung bronchiectasis with mild to moderate mucous plugging. 2. Mild left basilar subpleural subsegmental atelectasis. 3. Mild underlying emphysema. 4. Air-filled mildly distended proximal esophagus could be a sign of achalasia or presbyesophagus, for example. - 05/07/23 Echocardiogram Conclusion The left ventricle is normal size. There is a speckled pattern to the myocardium suggesting infiltrative disease. Mild diastolic dysfunction is present (impaired relaxation pattern). The left ventricular systolic function is normal. The left ventricular ejection fraction is within the normal range. There is normal LV segmental wall motion. LVEF is 65-70%. The right ventricle is normal size. The right ventricular systolic function is normal. Aortic valve is trileaflet. Mild aortic valve sclerosis. Mild tricuspid regurgitation. No pulmonary hypertension. - 02/18/23 CT Chest w/ c [facility] IMPRESSION: 1. Extensive branching adyp-pl-jha-type micronodules are present in the right lower lobe and right middle lobe, and to a lesser extent in the left lower lobe. This is stable to slightly progressed from the CT performed on 02/05/2023, and compatible with an infectious or inflammatory bronchiolitis. 2. The newly noted 8mm right lower lobe nodule seen on 02/05/2023 has slightly decreased in size to 6 mm on today's study, and is thus presumably related to the infectious/inflammatory bronchiolitis. The newly noted cluster of 4 to 5 mm nodules seen in the right lower lobe on 02/05/2023 is unchanged on today's examination and is likely infectious or inflammatory in etiology as well. A follow-up chest CT is recommended following treatment for infection, to confirm resolution. 3. Additional incidental findings are detailed above. Immunization Administrations COVID-19 04/20/2020 (69 y.o.) 05/19/2020 (69 y.o.) 12/24/2020 (70 y.o.) 10/11/2022 (72 y.o.) INFLUENZA 01/13/2007 (56 y.o.) 01/26/2008 (57 y.o.) 11/17/2013 (63 y.o.) 11/17/2015 (65 y.o.) 10/23/2016 (66 y.o.) 10/30/2017 (67 y.o.) 11/16/2018 (68 y.o.) 11/04/2019 (69 y.o.) 12/01/2020 (70 y.o.) MEASLES, MUMPS, RUBELLA (MMR) 06/22/2013 (62 y.o.) Zoster 10/30/2017 (67 y.o.) 12/29/2017 (67 y.o.) Return in about 3 months (around 11/26/2023). FOLLOW-UP Patient was advised to call with any questions or concerns. If symptoms worsen or fail to improve patient was advised to call for follow up in our office and/or PCP, or go to the Emergency Dept. Benefits, Risks, Contraindications, and Complications of recommended treatments were explained (and to call if prescriptions are not feasible); and the patient stated understanding and agreement to proceed with plan. 08/26/2023: I spent more than 40 mins: reviewed selected chart notes, results, interpreted tests, imaging today before seeing the pt; interviewing and examining pt; reviewed and discussed w/ pt, questions answered; counselling/educating pt/family/caregiver; ordering meds/tests as appropriate; documenting clinical information in the chart. Some Elements copied from previous notes. I have updated where appropriate, and all reflect current medical decision making from today's encounter. Note: This dictation was generated using voice recognition software. Please excuse any typographical, grammatical or spelling errors that may have occurred using the system Note to patient: The Century Cures Act makes medical notes like these available to patients in the interest of transparency. However, be advised this is a medical document. It is intended as [id number] communication. It is written in medical language and may contain abbreviations or verbiage that are unfamiliar. It may appear blunt or direct. Medical documents are intended to carry relevant information, facts as evident, and the clinical opinion of the practitioner. Yobani Bojorquez MD, MPH, [facility] Pulmonary/Critical Care Medicine [facility] 08/26/2023 documented in this encounter [facility] 08-22-2023 Procedure note Associated Ord er(s): PFT COMPLETE 08/22/2023 Amy Sun is a 73 y.o. male, Date of :1950. Dx: COPD, dyspnea. Ht 473 in, Wt 162 lbs. Smoker: yes. Medications not listed. Pt efforts: good, fair (RT NOTES: pt had difficult time due to dry mouth and constant spitting). Data appear acceptable and reproducible: fair. Albuterol given for postbronchodilator spirometry. Procedure: Pulmonary Function Test PFT including spirometry, spirometry with bronchodilator response, lung volumes, Diffusion capacity and Flow Volume Loop were performed during this session. Impression: - 08/22/2023 PFT: - Spirometry - MODERATELY SEVERE OBSTRUCTION, FEV1/FVC 58%, FEV1 2.03L 58% predicted, FVC 3.53L 74% predicted; w/ SMALL AIRWAY flow limitation. - Significant response to bronchodilator: LARGE response during this testing, as may be seen w/ Asthma, RAD (FEV1 increased 15%). - Lung Volume - HYPERINFLATION, INCREASED TLC 12.03L 167% predicted, RV 8.78L 314% predicted - w/ SEVERE AIR TRAPPING. - Diffusing Capacity: MILDLY REDUCED DLCO 66% predicted, DL/VA 107% (which normalizes when adjusted for lung volume, suggesting probably extraparenchymal cause; e.g., body habitus; may also have emphysema). - Flow Volume Loops - Obstructive pattern; No overt upper airway obstruction pattern. Please correlate clinically. SEE SCANNED PFT RESULTS FOR DETAILS. (The above report was entered in part using voice recognition medical dictation software. Although I have reviewed this report for accuracy, certain words and phrases may not be entered as intended. Please excuse typographical and grammatical errors.) [facility] 08-22-2023 Procedure note Associated Ord er(s): EXERCISE-6 MIN. WALK - 08/22/23 6MWT: RT NOTES ... Had a difficult time getting spo2 due to poor circulation. Attempted numerous times on each hand. [facility] 08-22-2023 Procedure note Associated Ord er(s): PFT COMPLETE 08/22/2023 Amy Sun is a 73 y.o. male, Date of :1950. Dx: COPD, dyspnea. Ht 473 in, Wt 162 lbs. Smoker: yes. Medications not listed. Pt efforts: good, fair (RT NOTES: pt had difficult time due to dry mouth and constant spitting). Data appear acceptable and reproducible: fair. Albuterol given for postbronchodilator spirometry. Procedure: Pulmonary Function Test PFT including spirometry, spirometry with bronchodilator response, lung volumes, Diffusion capacity and Flow Volume Loop were performed during this session. Impression: - 08/22/2023 PFT: - Spirometry - MODERATELY SEVERE OBSTRUCTION, FEV1/FVC 58%, FEV1 2.03L 58% predicted, FVC 3.53L 74% predicted; w/ SMALL AIRWAY flow limitation. - Significant response to bronchodilator: LARGE response during this testing, as may be seen w/ Asthma, RAD (FEV1 increased 15%). - Lung Volume - HYPERINFLATION, INCREASED TLC 12.03L 167% predicted, RV 8.78L 314% predicted - w/ SEVERE AIR TRAPPING. - Diffusing Capacity: MILDLY REDUCED DLCO 66% predicted, DL/VA 107% (which normalizes when adjusted for lung volume, suggesting probably extraparenchymal cause; e.g., body habitus; may also have emphysema). - Flow Volume Loops - Obstructive pattern; No overt upper airway obstruction pattern. Please correlate clinically. SEE SCANNED PFT RESULTS FOR DETAILS. (The above report was entered in part using voice recognition medical dictation software. Although I have reviewed this report for accuracy, certain words and phrases may not be entered as intended. Please excuse typographical and grammatical errors.) Associated Order(s): EXERCISE-6 MIN. WALK - 08/22/23 6MWT: RT NOTES ... Had a difficult time getting spo2 due to poor circulation. Attempted numerous times on each hand. documented in this encounter [facility] 08-07-2023 History of Present illness Narrative Progress Note Amy Sun is here for Chief Complaint Patient presents with Fever Low grade Patient has been having off and on low grade fevers, today it is 99.5. Denies URI symptoms, denies UTI symptoms. No s/sx PEG tube infection. Patient does have bilateral LE edema with some redness to back of legs, no warmth, drainage or pain. Patient states that pantoprazole sticks in his feeding tube and is difficult to clean out, is there something else they can switch to.. Review of Systems: Review of Systems Constitutional: Positive for fatigue and fever. Cardiovascular: Positive for leg swelling. Genitourinary: Positive for urgency. Musculoskeletal: Positive for joint swelling and neck pain. Neurological: Positive for headaches. All other systems reviewed and are negative. Progress Note Amy Simonsumaker is here for Chief Complaint Patient presents with Fever Low grade Patient has been having off and on low grade fevers, today it is 99.5. Denies URI symptoms, denies UTI symptoms. No s/sx PEG tube infection. Patient does have bilateral LE edema with some redness to back of legs, no warmth, drainage or pain. Patient states that pantoprazole sticks in his feeding tube and is difficult to clean out, is there something else they can switch to.. Review of Systems: Review of Systems Constitutional: Positive for fatigue and fever. Cardiovascular: Positive for leg swelling. Genitourinary: Positive for urgency. Musculoskeletal: Positive for joint swelling and neck pain. Neurological: Positive for headaches. All other systems reviewed and are negative. Amy Sun is here for Chief Complaint Patient presents with Fever Low grade HPI: Amy Dukes is a 73-year-old male who presents to the clinic for intermittent low-grade fevers Fever This is a recurrent problem. The current episode started 1 to 4 weeks ago. The problem occurs intermittently. The problem has been waxing and waning. His temperature was unmeasured prior to arrival. Associated symptoms include headaches. Pertinent negatives include no abdominal pain, coughing, nausea, sore throat, vomiting or wheezing. He has tried NSAIDs for the symptoms. The treatment provided significant relief. Risk factors: no contaminated food, no contaminated water, no recent sickness and no sick contacts Allergies: No Known Allergies Current Medications: Current Outpatient Medications: Albuterol (2.5 MG/3ML) 0.083% inhalation solution, Take 3 mL by nebulization every 6 hours as needed for Shortness of Breath., Disp: 360 mL, Rfl: 5 Albuterol 108 (90 Base) MCG/ACT Aero Soln inhaler, Inhale 2 puffs every 4 hours as needed for Shortness of Breath, Respiratory Distress or Wheezing., Disp: 18 g, Rfl: 3 furOSEmide (Lasix) 20 MG tablet, Take 1 tablet by mouth daily., Disp: 90 tablet, Rfl: 0 pilocarpine 2 % Solution, 1 drop 3 times daily as needed for Other (PO for secretions)., Disp: , Rfl: Rosuvastatin (Crestor) 5 MG tablet, Take 1 tablet by mouth daily., Disp: 90 tablet, Rfl: 1 Sertraline (Zoloft) 25 MG tablet, Take 1 tablet by mouth daily., Disp: 90 tablet, Rfl: 1 SPACER FOR INHALER PRESCRIPTION, Use with inhaler as directed, Disp: 1 Each, Rfl: 0 Testosterone 25 MG/2.5GM (1%) Gel gel, Place 2.5 g on skin daily., Disp: 225 g, Rfl: 0 traMADol (Ultram) 50 MG tablet, Take 1 tablet by mouth every 4 hours as needed., Disp: 180 tablet, Rfl: 1 Pantoprazole Sodium Powder, 40 mg by PEG Tube route daily., Disp: 100 g, Rfl: 1 Valsartan (Diovan) 160 MG tablet, Take 1 tablet by mouth daily. Check Blood pressure every day. If systolic blood pressure in > 130, then give 80 mg of valsartan (1/2 tablet), if < 130 then hold blood pressure medication. 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 Chemo/RT with Cisplatin and RT and Ethyol. RT completed 02/28/09. family history includes Coronary Artery Disease in an other family member; Heart Disease - Other in his brother, father, and another family member; No known problems in his mother. reports that he has quit smoking. His smoking use included cigarettes. He has never used smokeless tobacco. He reports that he does not drink alcohol and does not use drugs. Past Surgical History: Procedure Laterality Date EGD W/ PLACEMENT OR REPLACEMENT PEG 04/04/2023 NECK SURGERY 2008 for cancer INGUINAL HERNIA REPAIR 1988 REMOVAL CATARACT (PEM) Bilateral VASECTOMY Recent Labs: Recent Results (from the past 24 hour(s)) POCT URINE DIPSTICK AUTOMATED Collection Time: 08/07/23 12:28 PM Result Value Ref Range POCT APPEARANCE, URINE clear POCT COLOR, URINE yellow POCT GLUCOSE, URINE neg mg/dL POCT BILIRUBIN, URINE neg POCT KETONES, URINE neg mg/dL POCT SPECIFIC GRAVITY, URINE >=1.030 1.001 - 1.035 POCT BLOOD, URINE neg POCT PH, URINE 5.0 5 - 7 POCT PROTEIN, URINE trace mg/dL POCT UROBILINOGEN, URINE 0.2 0 - 2 E.U./dL POCT NITRITE, URINE neg POCT LEUKOCYTE, URINE neg POCT ESTERASE, URINE POCT BACTERIA, URINE POCT WBC, URINE POCT RBC, URINE POCT AMORPHOUS, URINE POCT CASTS, QUANTITATIVE, URINE POCT SQUAMOUS EPIS, URINE POCT RENAL EPIS, URINE POCT CRYSTALS, URINE POCT URINE COMMENTS, URINE POCT MICROSCOPIC Recent Imaging: No images are attached to the encounter. Physical Exam Physical Exam Vitals reviewed. Constitutional: Appearance: Normal appearance. HENT: Head: Normocephalic and atraumatic. Right Ear: Tympanic membrane, ear canal and external ear normal. Left Ear: Tympanic membrane, ear canal and external ear normal. Mouth/Throat: Mouth: Mucous membranes are moist. Pharynx: Oropharynx is clear. Eyes: Extraocular Movements: Extraocular movements intact. Pupils: Pupils are equal, round, and reactive to light. Cardiovascular: Rate and Rhythm: Normal rate and regular rhythm. Pulses: Normal pulses. Heart sounds: Normal heart sounds. No murmur heard. No friction rub. No gallop. Pulmonary: Effort: Pulmonary effort is normal. No respiratory distress. Breath sounds: Normal breath sounds. No stridor. No wheezing. Abdominal: General: Bowel sounds are normal. There is no distension. Palpations: Abdomen is soft. There is no mass. Tenderness: There is no abdominal tenderness. There is no guarding. Musculoskeletal: General: No swelling or tenderness. Normal range of motion. Cervical back: Neck supple. Lymphadenopathy: Cervical: No cervical adenopathy. Skin: General: Skin is warm and dry. Findings: No rash. Neurological: General: No focal deficit present. Mental Status: He is alert and oriented to person, place, and time. Mental status is at baseline. Psychiatric: Mood and Affect: Mood normal. Behavior: Behavior normal. Assessment & Plan Kishor was seen today for fever. Diagnoses and all orders for this visit: Fever, unspecified fever cause - POCT URINE DIPSTICK AUTOMATED (unremarkable) - CT chest on 07/18/23: Localized edema Other orders - Pantoprazole Sodium Powder; 40 mg by PEG Tube route daily. ICD-10-CM 1. Fever, unspecified fever cause R50.9 2. Localized edema R60.0 I would like to see Amy Sun back in 1 month(s) Gunjan oGdoy MD 08/07/2023 I spent at least 12 minutes in face to face time with patient, more than 50% of that time was spent on counseling and coordination of care. Plan discussed using plain language, and agreed to by rock dust sprayer, and patient. Understanding in both rock dust sprayer's and (when possible) patient's, verified by their paraphrasing them back to physician Total time: 19 mins Pre-visit Charting time; min + Face to Face time: min + Post Visit Documentation Time: min = Total Time: Min documented in this encounter [facility] 08-01-2023 History of Present illness Narrative Oncology Nutrition Therapy Reassessment I have communicated my name and active licensure. The patient's identity and physical location were verified at the time of this visit. Either the patient or their legal technical services representative has been informed of the risks and benefits of -- and alternatives to -- treatment through a remote evaluation and consents to proceed with the evaluation remotely. RECOMMENDED MALNUTRITION DIAGNOSIS: SEVERE PROTEIN-CALORIE MALNUTRITION In the context of Chronic Illness or Injury based on: Unintentional Weight Loss: >7.5% in 3 months Insufficient Energy Intake: Less than 75% energy intake compared to estimated needs for greater than or equal to 1 month Nutrition Diagnosis: Swallowing difficulty, related to, dysphagia 2/2 head and neck cancer, as evidenced by PEG placement and diagnosis. Nutrition Intervention: -Use of PEG feeding tube for 100% nutrition needs -Use salt and soda mouth rinse - utilize good technique for medication administration via PEG Nutrition Monitoring & Evaluation: EN intake Wt status Biochemical Markers Skin integrity Plan of care Patient Condition: Pt presents for nutrition counseling for history of malignant neoplasm of base of tongue with new onset dysphagia and Feeding tube placement 2/2 cancer. Pt is seen here for phebotomy currently. Pt had PEG placed on 04/07/[address] Godoy. Pt has had three hospitalization since that time with recurrent aspiration pneumonia. Nutrition Assessment: Patient is declining from a nutritional standpoint with multiple hospitalizations for recurring pneumonia. Patient's symptoms are: Dysphagia PEG placement NPO status No N/V/D/C Pt is currently using a combination of Boost VHC, Ensure Plus and Jevity 1.5 to provide 8083-2653 calories 06/23/23: Pt is not currently tolerating Jevity 1.5 well, he has diarrhea and pt believes it is from the fiber content. Will trial a few different things with him. He also has recurrent hospitalizations for pneumonia, which are contributing to an overall weight loss. He is now utilizing a pump for feeding nocturnally - ordered at last hospitalization. Concern for higher calorie tube feeding (2.0 formula) with gastric emptying - will order trial to test tolerance prior to change order Rx. Feeding tube clogs - discussed contacting pharmacy to discuss alternative for sulindac. PEG site looks good - improved from previous. 07/03/23: Patients main concern is recurrent aspiration pneumonia. He is strictly NPO. And c/o excessive dry mouth. No s/s of thrush, however pt has thick mucous visible in throat with foul odor. Recommended pt resume SOFTWARE APPLICATION TESTER therapy to see if guidry free water protocol is appropriate. Pt has appt with ENT next Friday. Pt continues to have issues with feeding port end staying attached to feeding set at night. He has tried multiple things mailed to him by [employer] (adaptors, vasu remy connector). Recommend port end be changed out for EnFit end. Feeding tube appears to have protein build up - pt continues to have issues with clogging even with using plenty of water, use of new pill frame and scrap crusher, increasing time of crushed pills in dissolution. PEG site looks well healed with no skin issues. EN tolerance is improved with no current concerns of diarrhea. EN pump duration is still lengthly and affecting patient QOL. Provided samples of TwoCalHN to patient. Will provide change order if he is able to tolerate and shorten duration of continuous feed. Current EN intake is Jevity 1.5 at 80ml/hr until completion of 8 cartons. 07/10/23: Pt saw Marium Lowery APRN for feeding tube management. He was fitted with a EnFit port. Pt states that they are very pleased with the changes. They are already set up with supplies [facility] and have ordered new supplies from [facility] [place]. EN intake: EN at 80ml/hr - Jevity 1.5 (5) and Ensure Plus (2) Trialed TwoCalHN - did not tolerate Pt best tolerated Complete 1.5 and will add modular benecalorie for adequate calories. Pt needs ~3000 calories to maintain weight. Discussed how to prepare for going on vacation - and flying with tube feeding formula and supplies - referred to the [employer] 07/17/23: Pt is improving from a nutritional standpoint r/t consistent intake and stated weight gain. EN intake: 5 Jevity 1.5 2 Ensure Plus Per patient SOFTWARE APPLICATION TESTER has approved ice only; NPO Pt will continue on Compleat 1.5 +Benecalorie. 08/01/23: Pt continues to improve from a nutritional standpoint TF: 5 per day of Complete 1.5, Ensure Plus x 2 Nausea in the morning after EN infusion. 85ml/hr per day. Water intake: 1/2 cup of water with each pill - 2 cups of water in am and pm ENFit port end broke and he is being sent another end. Would like to change to Jevity 1.5. Tolerate Jevity better than Compleat. Readiness to Learn: Cognitive ability: Alert and oriented Motivation to learn: Eager Family support: High - Very involved in pt care Instruction provided to: Patient and Spouse Patient learns best by: Multiple Methods Factors affecting learning: None Physical limitations affecting learning: None Anthropometrics: HEIGHT/WEIGHT/BSA Height BSA (m2) Weight 12/13/2021 2.2 m2 203 lb 11.2 oz 06/10/2022 2.19 m2 202 lb 14.4 oz 11/27/2022 188 cm (6' 2.02) 2.1 m2 186 lb 8 oz 12/04/2022 2.12 m2 189 lb 02/05/2023 188 cm (6' 2.02) 2.05 m2 177 lb 14.4 oz 02/14/2023 2.03 m2 174 lb 11.2 oz 02/28/2023 188 cm (6' 2.02) 2.06 m2 178 lb 9.6 oz 03/21/2023 188 cm (6' 2.02) 2.03 m2 174 lb 9.7 oz 05/29/2023 2.01 m2 170 lb 13.7 oz 06/04/2023 1.96 m2 162 lb 11.2 oz 06/23/2023 188 cm (6' 2.02) 1.94 m2 158 lb 4.6 oz 07/08/2023 188 cm (6' 2.02) 1.9 m2 152 lb 6.4 oz Estimated body mass index is 21.16 kg/m as calculated from the following: Height as of 07/23/23: 188 cm (6' 2.02). Weight as of 07/23/23: 74.8 kg (164 lb 14.5 oz). Resting Metabolic Rate: 1616 Weight Change: 10% weight loss in 6 months Current weight: 167.7lb Dosing Weight: 77.5 kg Estimated kilocalorie needs: 8870-5223 kilocalories determined by 35-40 kcal/kg Estimated protein needs: 93-116 grams determined by 1.2-1.5 g/kg Dosing weight Estimated fluid needs: 6691-9951 milliliters based on 1 mL per kcal Allergies: Patient has no known allergies. Medications: Current Outpatient Medications Medication Sig Dispense Refill iv contrast (will be provided with radiology test) CT Chest W -Inject, intravenously, once for 1 dose.No IV access, insert saline lock prior to the beginning of sedation, infusion, injection of imaging exam. Discontinue saline lock post exam. If Pt. has a central line or IVAD, may access for administration according to line specific nursing protocol. Once exam is complete flush line and de-access according to line specific nursing protocol in the CT contrast administration guidelines link. 1 Each 0 iv contrast (will be provided with radiology test) CT ABD/PEL -Inject, intravenously, once for 1 dose.No IV access, insert saline lock prior to the beginning of sedation, infusion, injection of imaging exam. Discontinue saline lock post exam. If Pt. has a central line or IVAD, may access for administration according to line specific nursing protocol. Once exam is complete flush line and de-access according to line specific nursing protocol in the CT contrast administration guidelines link. 1 Each 0 enteric contrast (will be provided with radiology test) For CT ABD/PEL W IVCON Routine order Administer, As Directed One Time Only, via Oral, Rectal, both Oral and Rectal, Enteric Tube, Stoma or Indwelling Catheter, Enteric Contrast as designated per enteric contrast guidelines 1 Each 0 nutritional supplement-fiber (COMPLEAT 1.5) 0.07 gram-1.5 kcal/mL liqd 80ml/hr of Compleat 1.5 continuously for 24 hours. Use 1 carton of Benecalorie daily. Flush with 200ml water four times per day. 81556 mL 11 sertraline (ZOLOFT) 25 mg tablet Take 1 tablet by mouth once daily. furosemide (LASIX) 20 mg tablet Take 20 mg by mouth once daily. sulindac (CLINORIL) 150 mg tablet pilocarpine (ISOPTO CARPINE) 2 % ophthalmic solution 1 Drop. rosuvastatin (CRESTOR) 5 mg tablet Take 5 mg by mouth once daily. Lactose-Free Food with Fiber (JEVITY 1.5 WEN) 0.06 gram-1.5 kcal/mL liqd 1 carton eight times per day. Flush with 160ml water for each bolus feeding. [address] (PROTONIX) 40 mg tablet propylene glycol/peg 400 (BLINK TEARS LUBRICATING) Eye Drops Use 1 Drop in both eyes as needed. traMADol (ULTRAM) 50 mg tablet Take 1 tablet by mouth twice daily. testosterone (ANDROGEL) 50 mg/5 g (1%) gel Apply 0.5 Tubes as directed once daily. No current facility-administered medications for this visit. Need for Follow up: in three months Referred/Supervised by: Dr. Nitin LEMA Billing Type: Re-assess/15 min 2 units Billed Time: 30 minutes Signed by: Zoya Hillman RD, SHARRI documented in this encounter [facility] 07-23-2023 History of Present illness Narrative HISTORY OF PRESENT ILLNESS: Mr. 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 Patient that time was treated with chemoradiation therapy. He completed radiation therapy in February 2009. He was treated on the care Dr. Lennon. He was last seen by him on September 2017. CURRENT STATUS: Since her last visit, patient reports that he has been seen by Dr. Rivas that time to discuss possible vocal cord fillers. Patient reports he is not interested. In addition patient has been seen by speech therapy. This has also been stabilized. He continues to use his feeding tube. He now returns ECOG PERFORMANCE STATUS: 0- Fully active, able to carry on all pre-disease performance w/o restriction. Social History Tobacco Use Smoking status: Former Packs/day: 2.00 Years: 46.00 Additional pack years: 0.00 Total pack years: 92.00 Types: Cigarettes Quit date: 09/19/2008 Years since quittin.8 Smokeless tobacco: Never Tobacco comments: Quit Vaping Use Vaping Use: Never used Substance Use Topics Alcohol use: No Drug use: No FAMILY HISTORY Problem Relation Age of Onset Cataract Mother other (Dementia) Mother Coronary Artery Disease Father Heart Father Cataract Father Glaucoma Father Detached Retina No Family History Macular Degen No Family History Blindness No Family History Amblyopia No Family History Strabismus No Family History PAST MEDICAL HISTORY Diagnosis Date Epiretinal membrane (ERM) of left eye Erythrocytosis 09/15/2014 Hyperlipemia 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) 12/02/2008 Nausea with vomiting PCO (posterior capsular opacification), left Pseudophakia, both eyes Secondary and unspecified malignant neoplasm of lymph nodes of head, face, and neck 12/02/2008 Vitreous floaters PHYSICAL EXAM: BP 145/80 Pulse 61 Temp (Src) 98 (Temporal) Resp 16 Ht 6' 2.016 (1.88m) Wt 164 lb 14.5 oz (74.8kg) SpO2 93% BMI 21.16 kg/(m^2). CONSTITUTIONAL: Awake, alert, oriented. HEAD (Incl. face): Normocephalic; Atraumatic. EYES: Pupils are reactive. No scleral icterus. HEENT: No oral exudates. NECK: No thyromegaly. No JVD. Evidence of neck surgery. HEMATOLOGY/LYMPHATIC: No petechiae or purpura. No tender or palpable lymph nodes in the cervical, supraclavicular, axillary or inguinal areas. RESPIRATORY: Lungs are clear to auscultation. CARDIOVASCULAR: Regular rate and rhythm. 2 + radial pulse. ABDOMEN: Non-tender, soft, positive bowel sounds. BACK/SPINE: No kyphosis or scoliosis. Non tender to palpation. MUSCULOSKELETAL: No tenderness or swelling, normal range of motion without obvious weakness. EXTREMITIES: No cyanosis, clubbing INTEGUMENTARY: No rashes or masses. NEURO: No sensory or motor deficits, normal cerebellar function, normal gait, cranial nerves intact. PSYCHIATRIC: Pleasant affect. No signs of agitation. LABS: Latest Reference Range & Units 07/18/23 09:37 Sodium 136 - 144 mmol/L 139 Potassium 3.7 - 5.1 mmol/L 5.1 Chloride 97 - 105 mmol/L 97 CO2 22 - 30 mmol/L 35 (H) BUN 9 - 24 mg/dL 20 Creatinine 0.73 - 1.22 mg/dL 0.61 (L) Glucose 74 - 99 mg/dL 118 (H) Protein, Total 6.3 - 8.0 g/dL 6.8 Calcium 8.5 - 10.2 mg/dL 9.2 Albumin 3.9 - 4.9 g/dL 3.7 (L) Bilirubin, Total 0.2 - 1.3 mg/dL 0.5 Alkaline Phosphatase 38 - 113 U/L 95 ALT 10 - 54 U/L 18 AST 14 - 40 U/L 20 Anion Gap 9 - 18 mmol/L 7 (L) eGFR >=60 mL/min/1.73m 102 WBC 3.70 - 11.00 k/uL 8.39 RBC 4.20 - 6.00 m/uL 4.22 Hemoglobin 13.0 - 17.0 g/dL 13.4 Hematocrit 39.0 - 51.0 % 40.1 Platelet Count 150 - 400 k/uL 188 MCV 80.0 - 100.0 fL 95.0 MCH 26.0 - 34.0 pg 31.8 MCHC 30.5 - 36.0 g/dL 33.4 MPV 9.0 - 12.7 fL 10.6 RDW-CV 11.5 - 15.0 % 15.7 (H) DTYPE Auto Neut% % 80.5 Abs Neut (ANC) 1.45 - 7.50 k/uL 6.76 Lymph% % 8.1 Abs Lymph 1.00 - 4.00 k/uL 0.68 (L) Gaston% % 9.1 Abs Gaston <0.87 k/uL 0.76 Eosin% % 1.7 Abs Eosin <0.46 k/uL 0.14 Baso% % 0.4 Abs Baso <0.11 k/uL 0.03 Immature Gran % % 0.2 IMMATURE GRANS (ABS) <0.10 k/uL <0.03 NRBC /100 WBC 0.0 Absolute nRBC <0.01 k/uL <0.01 (H): Data is abnormally high (L): Data is abnormally low RADIOLOGY: CHEST CT WITH CONTRAST -DATE OF EXAM: Jul 18 2023 11:31AM RESULT: Limitations: None. Lines, tubes, and devices: None. Lung parenchyma and airways: There are increasing right lower lobe multifocal tree-in-bud opacities, compatible with infection/inflammation. Distal bronchiolar mucous plugging is again noted within the dependent posterior right lower lobe. Dependent secretion is noted within the right mainstem bronchus and bronchus intermedius. There is mild diffuse bronchial wall thickening, compatible with chronic bronchitis. Tree-in-bud opacities are also noted within the right middle lobe and left lower lobe, although to a lesser degree (mildly increased since the prior exam). There is juxtapleural atelectasis involving the medial aspect of the right lower lobe. No enlarging suspicious pulmonary nodule. Pleural space: No pleural effusion. No pleural thickening. Lower neck, lymph nodes, and mediastinum: The imaged thyroid is unremarkable. No supraclavicular, axillary or hilar lymphadenopathy. There are enlarged mediastinal lymph nodes, with technical services representative measurements detailed as follows on series 3: -Image 100, subcarinal, 1.3 cm in short axis (unchanged) -Image 113, right paraesophageal, 1.3 cm (unchanged) Heart, pericardium, and thoracic vessels: The thoracic aorta and main pulmonary artery are normal in caliber. The cardiac chambers are normal in size. No coronary artery atherosclerotic calcifications are noted, although the study is not optimized for coronary assessment. No pericardial effusion or thickening. Bones and soft tissues: Degenerative changes involve the thoracic spine. No destructive lytic or blastic osseous abnormality. Upper abdomen: No abnormality in the imaged upper abdomen. A percutaneous gastrostomy tube is in place. IMPRESSION: 1. Since 06/14/2023, mild increase in multifocal tree-in-bud opacities, most pronounced within the right lower lobe, and to a lesser degree within the right middle lobe and left lower lobe, compatible with infection/inflammation. The distribution is consistent with aspiration. 2. Persistent distal bronchiolar mucous plugging within the right lower lobe. Dependent secretions are present within the right mainstem bronchus and bronchus intermedius. 3. Unchanged mildly enlarged mediastinal lymph nodes. CT CHEST WITHOUT CONTRAST, , 06/14/2023 5:40 PM CDT FINDINGS: MEDIASTINUM: Visualized airways are patent. Heart is normal in size without pericardial effusion. Thoracic aorta is normal in caliber. Highly prominent precarinal subcarinal lymph nodes without significant change. No increasing adenopathy. No significant calcified coronary artery plaque. No gas throughout the esophagus suggests reflux. PLEURAL CAVITY: No evidence of pleural effusion. There is an enlarging pleural-based densities posterior medial right lower chest at the T10-T11 level. Surgical approximately 5.4 cm AP by 2.5 cm transverse diameter 4.5 cm craniocaudad diameter. No progressive bony erosion or destruction of the adjacent vertebra. Pleural-based without increasing pleural effusion. Lucency suggesting gas and possible small amounts of fluid. Variable size and prior studies, measured 4.2 cm AP diameter 05/09/2023 and 3.5 cm on 05/24/2023. Not present on PET/CT images from 2012. Question whether this chronic inflammatory process centered within the pleura or adjacent lung. LUNGS: Increasing nodular densities right lower lobe most likely inflammatory. Also some mild groundglass density. Mild interstitial density left lung base lower lobe improved from 05/24/2023. Lungs otherwise stable. No findings suspicious for metastatic disease. CHEST WALL/AXILLA: No axillary lymphadenopathy VISUALIZED UPPER ABDOMEN: No acute findings. Gastrostomy tube partially imaged. BONES: No destructive lesions. IMPRESSION: 1. Increasing nodular densities right lower lobe most likely inflammatory, correlate for pneumonitis/pneumonia. Prominent gas in the esophagus suggesting reflux, question aspiration pneumonia. 2. Enlarging pleural-based density containing small amounts of gas adjacent to the inflammatory density in the right lower lobe noted above. Seen in the posterior inferior medial right chest centered at the T10-T11 level. Question whether this a chronic inflammatory process within the lung or adjacent pleura. There is no adjacent bony erosion or increasing pleural effusion. Has been present previously of variable size, large larger on 05/09/2023 and decreased on 05/24/2023 MRI ABDOMEN WITH AND WITHOUT CONTRAST -Exam End: 03/12/23 9:59 AM FINDINGS: There are multiple bilateral renal cysts. Multiple lesions are too small to definitively characterize, but there are no overtly suspicious renal lesions. The largest in the lateral left kidney appears simple and measures 2.7 x 2.7 cm on series 8 image 28. Several lesions demonstrate precontrast T1 hyperintensity without definite suspicious nodular enhancement on postcontrast images. Some lesions demonstrate probable thin internal septations without overt focal thickening. The liver demonstrates no definite evidence of significant steatosis or suspicious focal parenchymal lesions. Gallbladder is mildly distended and otherwise unremarkable. The spleen appears normal in size. The adrenal glands are unremarkable in appearance. There is no evidence of biliary or pancreatic ductal dilatation. Pancreas appears mildly atrophic and fatty replaced without a definite discrete or suspicious enhancing nodule appreciable. There is no evidence of bulky abdominal adenopathy. There is prominent atherosclerosis of the abdominal aorta and there is aneurysmal dilatation of the infrarenal abdominal aorta measuring up to 3.3 cm for example on series 5 image 18. This is essentially new, as there was previously only minimal abdominal aortic ectasia measuring 2.3 cm. IMPRESSION: 1. Multiple bilateral renal cysts, predominantly Bosniak 1 and Bosniak 2. Some lesions are too small to fully characterize, but there are no overtly suspicious renal lesions. 2. No suspicious focal liver lesions. 3. Aneurysmal dilatation of the abdominal aorta measuring 3.3 cm, enlarging by 10 mm since 2014. Recommend continued imaging follow-up for this. EXAMINATION: CT PE STUDY, 03/03/2023, 9:54 AM EST. IMPRESSION: 1. I do not see any evidence of pulmonary embolism. There is believed to be pulmonary hypertension given prominently dilated right and left main pulmonary arteries. 2. There is believed to be reactive lio hypertrophy in the hilar and infracarinal regions. 3. The lung chen to me suggest centrilobular emphysema. There is diffuse peribronchial thickening and diffuse mild interstitial accentuation. 4. In the right lower lobe posteriorly there is subpleural airspace consolidation in a curvilinear fashion. There is also infiltrative change in the right paravertebral region in the lower lobe. There is some minimal airspace infiltrate associated with the major fissure on the right in the right upper lobe. There are several nodular irregular subcentimeter densities also seen in the right lung, both in the right lower lobe and right middle lobe. In the left lung I see some patchy consolidation and pneumonic type markings in the lingula near the diaphragm. The remaining left lung is fairly well aerated. Overall the findings to me are suggestive of developing pneumonia predominately centered in the right lower lobe with associated significant peribronchial thickening and reactive lio changes. There are some patchy areas of most likely early airspace infiltrate rather than pulmonary nodularity. There is also, especially in the lung bases, diffuse interstitial thickening. 5. Both kidneys appear to have cystic changes incidentally. CT NECK SOFT TISSUE W IVCON-DATE OF EXAM: Feb 24 2023 1:44PM RESULT: Post-treatment changes: Presumed posttreatment/postradiation changes in the neck including skin thickening, subcutaneous fat stranding, platysmal muscle thickening, and severe atrophy of the bilateral submandibular glands. Nonspecific fat stranding the bilateral parapharyngeal and carotid spaces also likely representing posterior/postradiation change. No abnormal enhancing soft tissue in the base of the tongue or elsewhere in the neck to suggest residual/recurrent neoplasm. Lymph nodes: No cervical lymphadenopathy by size, number or morphologic criteria. Small nonspecific lymph nodes are scattered throughout the neck. Aerodigestive tract: The oral cavity is partially obscured by artifact from dental amalgam. The nasal cavities, naso-oropharynx, pharyngeal mucosal space, laryngeal structures and infraglottic trachea are within normal limits. Major salivary glands: The bilateral submandibular glands appears severely atrophic, likely postradiation changes detailed above. Mild atrophy of the bilateral parotid glands, RIGHT worse than LEFT. Thyroid gland: Within normal limits. Carotid space: Patent bilateral extracranial carotid and jugular systems. Calcified and noncalcified atherosclerotic plaque resulting in moderate narrowing of the proximal RIGHT cervical ICA and mild narrowing of the proximal LEFT cervical ICA, although the study is not optimized for carotid artery assessment. Intracranial contents: Imaged portions within normal limits. Mild generalized volume loss with commensurate ventriculomegaly. Scattered hypoattenuation in the supratentorial white matter is nonspecific but likely representing sequela of chronic microvascular ischemic change. Paranasal sinuses, middle ears, mastoids: Polypoid mucosal thickening versus mucous retention cysts in the inferior RIGHT maxillary sinus. The remaining visualized paranasal sinuses are clear. Mastoid air cells and middle ear cavities appear clear. Orbits: Bilateral pseudophakia. Otherwise, orbits appear unremarkable Bones: No suspicious osseous lesions in the imaged calvarium, skull base and spine. Normal cervicothoracic alignment. Multilevel degenerative disc disease with partially calcified posterior longitudinal ligament resulting in up to level mild spinal canal narrowing at C3-C7. Multilevel mild neural foraminal narrowing. Temporomandibular joints are maintained. Lungs: Imaged lungs are clear. Please see concurrent CT chest for complete evaluation of the intrathoracic contents. IMPRESSION: Primary: 1. Expected post-treatment changes in the neck without evidence of recurrent disease in the primary site. ? Neck: 1. No cervical lymphadenopathy CHEST CT WITH CONTRAST -DATE OF EXAM: Feb 18 2023 2:05PM RESULT: Limitations: None. Lines, tubes, and devices: None. Lung parenchyma and airways: The newly noted 8 mm solid nodule seen in the right lower lobe on 02/05/2023 has slightly decreased in size to 6 mm, measured on series 4 image 155. This is thus favored to be infectious or inflammatory etiology. The newly noted discrete 4 to 5 mm clustered right lower lobe nodules seen on 02/08/2023 are unchanged, measured on series 4 image 171. In addition to the above there is relatively extensive branching [id number]-ogn-type micronodularity involving the inferior aspect of the right lower lobe, the right middle lobe and to a lesser extent the left lower lobe, this is similar to perhaps mildly progressed from 02/05/2023 and indicate an infectious or inflammatory bronchiolitis. Mild upper lung predominant emphysema is present. Adherent mucoid debris is seen within the trachea for example on series 4 image 70 and within right lower lobe bronchi for example on series 4 image 122. Mild bronchial wall thickening is noted involving segmental and subsegmental bronchi in the right lower lobe, likely indicating bronchitis. Pleural space: No pleural effusion. No pleural thickening. Lower neck, lymph nodes, and mediastinum: The imaged thyroid gland is normal. No lymphadenopathy in the supraclavicular, axillary, mediastinal, or hilar regions. Heart, pericardium, and thoracic vessels: The thoracic aorta and main pulmonary artery are normal in caliber. The cardiac chambers are normal in size. No coronary artery atherosclerotic calcifications are noted, although the study is not optimized for coronary assessment. No pericardial effusion or thickening. Bones and soft tissues: Mild to moderate multilevel thoracic spine degenerative disc disease noted. No destructive skeletal lesion is present. Upper abdomen: Please see the separate report for the concurrently obtained CT of the abdomen/pelvis. IMPRESSION: 1. Extensive branching beir-gi-dep-type micronodules are present in the right lower lobe and right middle lobe, and to a lesser extent in the left lower lobe. This is stable to slightly progressed from the CT performed on 02/05/2023, and compatible with an infectious or inflammatory bronchiolitis. 2. The newly noted 8mm right lower lobe nodule seen on 02/05/2023 has slightly decreased in size to 6 mm on today's study, and is thus presumably related to the infectious/inflammatory bronchiolitis. The newly noted cluster of 4 to 5 mm nodules seen in the right lower lobe on 02/05/2023 is unchanged on today's examination and is likely infectious or inflammatory in etiology as well. A follow-up chest CT is recommended following treatment for infection, to confirm resolution. 3. Additional incidental findings are detailed above. CT ABDOMEN AND PELVIS WITH IV CONTRAST -DATE OF EXAM: Feb 18 2023 2:05PM RESULT: Liver: Unremarkable. No mass. Biliary: No bile duct dilation. Unremarkable gallbladder. Spleen: No mass. No splenomegaly. Pancreas: No mass or duct dilation. Adrenals: No mass. Kidneys: Incidental bilateral renal cysts are noted. In addition to the cyst there are several subcentimeter low-attenuation foci in both kidneys which are too small to characterize, these are favored to represent cysts as well. There is a 9 mm intermediate density lesion at the anterior upper pole of the left kidney that is indeterminate, this is seen on series 3 image 41. There is a 9 mm intermediate density lesion at the posterior aspect of the interpolar region of the right kidney on series 3 image 57 that is indeterminate. These could represent hemorrhagic cysts or small solid renal masses. No renal collecting system dilation. GI tract: No dilation or wall thickening. Colonic diverticulosis is noted, there are no CT findings of diverticulitis. Lymph nodes: No abdominal or pelvic lymphadenopathy. Mesentery/Peritoneum: No ascites or mass. Retroperitoneum: No mass. Vasculature: - Abdominal aorta and iliac arteries: 3.2 cm infrarenal abdominal aortic aneurysm present. Moderate calcified atherosclerotic disease noted. - Celiac and SMA: Patent without stenosis. - Portal venous system (SMV, splenic vein, portal vein and branches): Patent. - Hepatic veins: Patent. Pelvis: Mild to moderate prostate enlargement. Small fat-containing left inguinal hernia. No mass, fluid collection or ascites. Bones/Soft Tissues: No destructive skeletal lesion is present. Minimal multilevel lumbar spine degenerative disc disease noted. Lower thorax: Please see the separate report for the concurrently obtained CT of the chest. IMPRESSION: 1. No acute finding in the abdomen or pelvis. 2. Indeterminate 9 mm lesions at the upper pole of the left kidney and interpolar region of the right kidney respectively, the differential diagnosis would include benign hemorrhagic cyst, or small solid renal masses. No previous contrast-enhanced CT imaging is available for comparison to assess stability. Thus further evaluation with renal protocol MRI would be recommended. 3. 3.2 cm infrarenal abdominal aortic aneurysm. 4. Additional incidental findings are detailed above including colonic diverticulosis, mild to moderate prostate enlargement and a small fat-containing left inguinal hernia. ASSESSMENT / PLAN: 1. 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 He is due to see Dr. Holder. 2. Weight loss. Patient is status post PEG. Patient is been evaluated by nutrition. He is receiving additional supplementation. He is having more trouble aspiration. 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 Patient has been evaluated by ENT. Patient was seen by Dr. Rivas. They are talking about vocal cord filler. No clear evidence of malignancy. Patient return to see me in 6 months. 3. Increasing nodular densities right lower lobe. This would likely represent aspiration however given the severity we will repeat CT scans in 6 months. 4. Pleural-based density. Previously mentioned pleural-based lesion is no longer seen or mentioned on this CT. I will ask for direct comparison. 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 6. Right Kidney.had MRI dated March 12, 2023. This showed multiple bilateral renal cysts. Predominant Bosniak 1 and Bosniak 2. Some Elements Copied from my note previous note,June 23, 2023 I have updated where appropriate, and all reflect current medical decision making from today, July 23, 2023 Sushma Brandon MD documented in this encounter [facility] 07-18-2023 Telephone encounter Note Patient's spouse called in stating patient has had non stop vomiting since he had his CT scan today. Patient verified he only had IV contrast. Patient has had his tube feeding shut off 3 hrs prior to scan and takes nothing by mouth. Spouse stated he has stopped vomiting and feeling better but unsure what to do. Instructed patient if it continues he should go to the ER. Patient states this has never happened previously with scans. Patient denies any breathing difficulties, rash or itching. Will notify Dr Brandon and return call if any further orders. Patient's spouse verbalizes understanding. AA [facility] 07-18-2023 Miscellaneous Notes Patient's spouse called in stating patient has had non stop vomiting since he had his CT scan today. Patient verified he only had IV contrast. Patient has had his tube feeding shut off 3 hrs prior to scan and takes nothing by mouth. Spouse stated he has stopped vomiting and feeling better but unsure what to do. Instructed patient if it continues he should go to the ER. Patient states this has never happened previously with scans. Patient denies any breathing difficulties, rash or itching. Will notify Dr Brandon and return call if any further orders. Patient's spouse verbalizes understanding. AA documented in this encounter [facility] 07-18-2023 History of Present illness Narrative Radiology Service Progress Note DATE OF SERVICE: July 18, 2023 TIME: 11:31 AM PATIENT IDENTITY VERIFICATION COMPLETED USING TWO (2) STANDARD IDENTIFIERS: Name and Date of confirmed by patient verbally. FALL SCREENING: Has the patient had 2 falls in the last year or 1 fall with injury or currently using an Ambulatory Assistive Device (Walker, Cane, Wheelchair, Crutches, etc.)? No PATIENT GENDER DATA: Male PATIENT RELEVANT IMPLANT DATA REVIEWED: Yes PATIENT PRESENTS WITH AN IMPLANTABLE OR ATTACHED SUBSCRIPTION AGENT: No ALLERGIES: Reviewed and unchanged CONTRAST ALLERGY: NO. EXAM: CT -CONTRAST INDUCED NEPHROPATHY RISK FACTORS: Patient age > 60 years and qGTD=211 CREATININE: Creatinine Date Value Ref Range Status 07/18/2023 0.61 (L) 0.73 - 1.22 mg/dL Final 06/04/2023 0.73 0.73 - 1.22 mg/dL Final 02/14/2023 0.94 0.73 - 1.22 mg/dL Final Estimated Glomerular Filtration Rate Date Value Ref Range Status 07/18/2023 102 >=60 mL/min/1.73m Final Comment: Estimated Glomerular Filtration Rate (eGFR) is calculated using the 2020 CKD-EPI creatinine equation. This equation utilizes serum creatinine, sex, and age as parameters. The creatinine assay has traceable calibration to isotope dilution-mass spectrometry. Refer to KDIGO guidelines for clinical interpretation. In patients with unstable renal function, e.g. those with acute kidney injury, the eGFR may not accurately reflect actual GFR. eGFR- Date Value Ref Range Status 09/24/2017 >60 Final P.O.C.T. RESULTS: POC done: Yes, See Lab Tab July 18, 2023 TREATMENT: N/A PERIPHERAL IV DATA: Ambulatory: A peripheral IV was started in the Right forearm with a Angio cath: 22 gauge. RADIOLOGY DEPARTMENT: CT; Exam(s) Completed: Chest SIGNATURE: Pete Contreras RT(R) PATIENT NAME: Amy Sun DATE: July 18, 2023 TIME: 11:31 AM documented in this encounter [facility] 07-17-2023 History of Present illness Narrative Oncology Nutrition Therapy Reassessment I have communicated my name and active licensure. The patient's identity and physical location were verified at the time of this visit. Either the patient or their legal technical services representative has been informed of the risks and benefits of -- and alternatives to -- treatment through a remote evaluation and consents to proceed with the evaluation remotely. RECOMMENDED MALNUTRITION DIAGNOSIS: SEVERE PROTEIN-CALORIE MALNUTRITION In the context of Chronic Illness or Injury based on: Unintentional Weight Loss: >7.5% in 3 months Insufficient Energy Intake: Less than 75% energy intake compared to estimated needs for greater than or equal to 1 month Nutrition Diagnosis: Swallowing difficulty, related to, dysphagia 2/2 head and neck cancer, as evidenced by PEG placement and diagnosis. Nutrition Intervention: -Use of PEG feeding tube for 100% nutrition needs -Use salt and soda mouth rinse - utilize good technique for medication administration via PEG Nutrition Monitoring & Evaluation: EN intake Wt status Biochemical Markers Skin integrity Plan of care Patient Condition: Pt presents for nutrition counseling for history of malignant neoplasm of base of tongue with new onset dysphagia and Feeding tube placement 2/2 cancer. Pt is seen here for phebotomy currently. Pt had PEG placed on 04/07/[address] Godoy. Pt has had three hospitalization since that time with recurrent aspiration pneumonia. Nutrition Assessment: Patient is declining from a nutritional standpoint with multiple hospitalizations for recurring pneumonia. Patient's symptoms are: Dysphagia PEG placement NPO status No N/V/D/C Pt is currently using a combination of Boost VHC, Ensure Plus and Jevity 1.5 to provide 6210-4367 calories 06/23/23: Pt is not currently tolerating Jevity 1.5 well, he has diarrhea and pt believes it is from the fiber content. Will trial a few different things with him. He also has recurrent hospitalizations for pneumonia, which are contributing to an overall weight loss. He is now utilizing a pump for feeding nocturnally - ordered at last hospitalization. Concern for higher calorie tube feeding (2.0 formula) with gastric emptying - will order trial to test tolerance prior to change order Rx. Feeding tube clogs - discussed contacting pharmacy to discuss alternative for sulindac. PEG site looks good - improved from previous. 07/03/23: Patients main concern is recurrent aspiration pneumonia. He is strictly NPO. And c/o excessive dry mouth. No s/s of thrush, however pt has thick mucous visible in throat with foul odor. Recommended pt resume SOFTWARE APPLICATION TESTER therapy to see if guidry free water protocol is appropriate. Pt has appt with ENT next Friday. Pt continues to have issues with feeding port end staying attached to feeding set at night. He has tried multiple things mailed to him by [employer] (adaptors, vasu remy connector). Recommend port end be changed out for EnFit end. Feeding tube appears to have protein build up - pt continues to have issues with clogging even with using plenty of water, use of new pill frame and scrap crusher, increasing time of crushed pills in dissolution. PEG site looks well healed with no skin issues. EN tolerance is improved with no current concerns of diarrhea. EN pump duration is still lengthly and affecting patient QOL. Provided samples of TwoCalHN to patient. Will provide change order if he is able to tolerate and shorten duration of continuous feed. Current EN intake is Jevity 1.5 at 80ml/hr until completion of 8 cartons. 07/10/23: Pt saw Marium Lowery APRN for feeding tube management. He was fitted with a EnFit port. Pt states that they are very pleased with the changes. They are already set up with [facility] and have ordered new supplies from [facility] [place]. EN intake: EN at 80ml/hr - Jevity 1.5 (5) and Ensure Plus (2) Trialed TwoCalHN - did not tolerate Pt best tolerated Complete 1.5 and will add modular benecalorie for adequate calories. Pt needs ~3000 calories to maintain weight. Discussed how to prepare for going on vacation - and flying with tube feeding formula and supplies - referred to the [employer] 07/17/23: Pt is improving from a nutritional standpoint r/t consistent intake and stated weight gain. EN intake: 5 Jevity 1.5 2 Ensure Plus Per patient SOFTWARE APPLICATION TESTER has approved ice only; NPO Pt will continue on Compleat 1.5 +Benecalorie. Readiness to Learn: Cognitive ability: Alert and oriented Motivation to learn: Eager Family support: High - Very involved in pt care Instruction provided to: Patient and Spouse Patient learns best by: Multiple Methods Factors affecting learning: None Physical limitations affecting learning: None Anthropometrics: HEIGHT/WEIGHT/BSA Height BSA (m2) Weight 12/13/2021 2.2 m2 203 lb 11.2 oz 06/10/2022 2.19 m2 202 lb 14.4 oz 11/27/2022 188 cm (6' 2.02) 2.1 m2 186 lb 8 oz 12/04/2022 2.12 m2 189 lb 02/05/2023 188 cm (6' 2.02) 2.05 m2 177 lb 14.4 oz 02/14/2023 2.03 m2 174 lb 11.2 oz 02/28/2023 188 cm (6' 2.02) 2.06 m2 178 lb 9.6 oz 03/21/2023 188 cm (6' 2.02) 2.03 m2 174 lb 9.7 oz 05/29/2023 2.01 m2 170 lb 13.7 oz 06/04/2023 1.96 m2 162 lb 11.2 oz 06/23/2023 188 cm (6' 2.02) 1.94 m2 158 lb 4.6 oz 07/08/2023 188 cm (6' 2.02) 1.9 m2 152 lb 6.4 oz Estimated body mass index is 19.56 kg/m as calculated from the following: Height as of 07/08/23: 188 cm (6' 2.02). Weight as of 07/08/23: 69.1 kg (152 lb 6.4 oz). Resting Metabolic Rate: 1616 Weight Change: 10% weight loss in 6 months Dosing Weight: 77.5 kg Estimated kilocalorie needs: 4994-9702 kilocalories determined by 35-40 kcal/kg Estimated protein needs: 93-116 grams determined by 1.2-1.5 g/kg Dosing weight Estimated fluid needs: 1550-7976 milliliters based on 1 mL per kcal Allergies: Patient has no known allergies. Medications: Current Outpatient Medications Medication Sig Dispense Refill nutritional supplement-fiber (COMPLEAT 1.5) 0.07 gram-1.5 kcal/mL liqd 80ml/hr of Compleat 1.5 continuously for 24 hours. Use 1 carton of Benecalorie daily. Flush with 200ml water four times per day. 27667 mL 11 sertraline (ZOLOFT) 25 mg tablet Take 1 tablet by mouth once daily. furosemide (LASIX) 20 mg tablet Take 20 mg by mouth once daily. sulindac (CLINORIL) 150 mg tablet pilocarpine (ISOPTO CARPINE) 2 % ophthalmic solution 1 Drop. rosuvastatin (CRESTOR) 5 mg tablet Take 5 mg by mouth once daily. Lactose-Free Food with Fiber (JEVITY 1.5 WEN) 0.06 gram-1.5 kcal/mL liqd 1 carton eight times per day. Flush with 160ml water for each bolus feeding. [address] (PROTONIX) 40 mg tablet propylene glycol/peg 400 (BLINK TEARS LUBRICATING) Eye Drops Use 1 Drop in both eyes as needed. traMADol (ULTRAM) 50 mg tablet Take 1 tablet by mouth twice daily. testosterone (ANDROGEL) 50 mg/5 g (1%) gel Apply 0.5 Tubes as directed once daily. No current facility-administered medications for this visit. Need for Follow up: in one week Referred/Supervised by: Dr. Nitin LEMA Billing Type: Re-assess/15 min 2 units Billed Time: 30 minutes Signed by: Zoya Hillman RD, SHARRI documented in this encounter [facility] 07-10-2023 History of Present illness Narrative Oncology Nutrition Therapy Reassessment I have communicated my name and active licensure. The patient's identity and physical location were verified at the time of this visit. Either the patient or their legal technical services representative has been informed of the risks and benefits of -- and alternatives to -- treatment through a remote evaluation and consents to proceed with the evaluation remotely. RECOMMENDED MALNUTRITION DIAGNOSIS: SEVERE PROTEIN-CALORIE MALNUTRITION In the context of Chronic Illness or Injury based on: Unintentional Weight Loss: >7.5% in 3 months Insufficient Energy Intake: Less than 75% energy intake compared to estimated needs for greater than or equal to 1 month Nutrition Diagnosis: Swallowing difficulty, related to, dysphagia 2/2 head and neck cancer, as evidenced by PEG placement and diagnosis. Nutrition Intervention: -Use of PEG feeding tube for 100% nutrition needs -Use salt and soda mouth rinse - utilize good technique for medication administration via PEG Nutrition Monitoring & Evaluation: EN intake Wt status Biochemical Markers Skin integrity Plan of care Patient Condition: Pt presents for nutrition counseling for history of malignant neoplasm of base of tongue with new onset dysphagia and Feeding tube placement 2/2 cancer. Pt is seen here for phebotomy currently. Pt had PEG placed on 04/07/[address] Godoy. Pt has had three hospitalization since that time with recurrent aspiration pneumonia. Nutrition Assessment: Patient is declining from a nutritional standpoint with multiple hospitalizations for recurring pneumonia. Patient's symptoms are: Dysphagia PEG placement NPO status No N/V/D/C Pt is currently using a combination of Boost VHC, Ensure Plus and Jevity 1.5 to provide 8213-1987 calories 06/23/23: Pt is not currently tolerating Jevity 1.5 well, he has diarrhea and pt believes it is from the fiber content. Will trial a few different things with him. He also has recurrent hospitalizations for pneumonia, which are contributing to an overall weight loss. He is now utilizing a pump for feeding nocturnally - ordered at last hospitalization. Concern for higher calorie tube feeding (2.0 formula) with gastric emptying - will order trial to test tolerance prior to change order Rx. Feeding tube clogs - discussed contacting pharmacy to discuss alternative for sulindac. PEG site looks good - improved from previous. 07/03/23: Patients main concern is recurrent aspiration pneumonia. He is strictly NPO. And c/o excessive dry mouth. No s/s of thrush, however pt has thick mucous visible in throat with foul odor. Recommended pt resume SOFTWARE APPLICATION TESTER therapy to see if guidry free water protocol is appropriate. Pt has appt with ENT next Friday. Pt continues to have issues with feeding port end staying attached to feeding set at night. He has tried multiple things mailed to him by [employer] (adaptors, vasu remy connector). Recommend port end be changed out for EnFit end. Feeding tube appears to have protein build up - pt continues to have issues with clogging even with using plenty of water, use of new pill frame and scrap crusher, increasing time of crushed pills in dissolution. PEG site looks well healed with no skin issues. EN tolerance is improved with no current concerns of diarrhea. EN pump duration is still lengthly and affecting patient QOL. Provided samples of TwoCalHN to patient. Will provide change order if he is able to tolerate and shorten duration of continuous feed. Current EN intake is Jevity 1.5 at 80ml/hr until completion of 8 cartons. 07/10/23: Pt saw Marium Lowery APRN for feeding tube management. He was fitted with a EnFit port. Pt states that they are very pleased with the changes. They are already set up with supplies [facility] and have ordered new supplies from [facility] [place]. EN intake: EN at 80ml/hr - Jevity 1.5 (5) and Ensure Plus (2) Trialed TwoCalHN - did not tolerate Pt best tolerated Complete 1.5 and will add modular benecalorie for adequate calories. Pt needs ~3000 calories to maintain weight. Discussed how to prepare for going on vacation - and flying with tube feeding formula and supplies - referred to the [employer] Readiness to Learn: Cognitive ability: Alert and oriented Motivation to learn: Eager Family support: High - Very involved in pt care Instruction provided to: Patient and Spouse Patient learns best by: Multiple Methods Factors affecting learning: None Physical limitations affecting learning: None Anthropometrics: HEIGHT/WEIGHT/BSA Height BSA (m2) Weight 12/13/2021 2.2 m2 203 lb 11.2 oz 06/10/2022 2.19 m2 202 lb 14.4 oz 11/27/2022 188 cm (6' 2.02) 2.1 m2 186 lb 8 oz 12/04/2022 2.12 m2 189 lb 02/05/2023 188 cm (6' 2.02) 2.05 m2 177 lb 14.4 oz 02/14/2023 2.03 m2 174 lb 11.2 oz 02/28/2023 188 cm (6' 2.02) 2.06 m2 178 lb 9.6 oz 03/21/2023 188 cm (6' 2.02) 2.03 m2 174 lb 9.7 oz 05/29/2023 2.01 m2 170 lb 13.7 oz 06/04/2023 1.96 m2 162 lb 11.2 oz 06/23/2023 188 cm (6' 2.02) 1.94 m2 158 lb 4.6 oz 07/08/2023 188 cm (6' 2.02) 1.9 m2 152 lb 6.4 oz Estimated body mass index is 19.56 kg/m as calculated from the following: Height as of 07/08/23: 188 cm (6' 2.02). Weight as of 07/08/23: 69.1 kg (152 lb 6.4 oz). Resting Metabolic Rate: 1616 Weight Change: 10% weight loss in 6 months Dosing Weight: 77.5 kg Estimated kilocalorie needs: 2708-0118 kilocalories determined by 35-40 kcal/kg Estimated protein needs: 93-116 grams determined by 1.2-1.5 g/kg Dosing weight Estimated fluid needs: 3788-8832 milliliters based on 1 mL per kcal Allergies: Patient has no known allergies. Medications: Current Outpatient Medications Medication Sig Dispense Refill sertraline (ZOLOFT) 25 mg tablet Take 1 tablet by mouth once daily. furosemide (LASIX) 20 mg tablet Take 20 mg by mouth once daily. sulindac (CLINORIL) 150 mg tablet pilocarpine (ISOPTO CARPINE) 2 % ophthalmic solution 1 Drop. rosuvastatin (CRESTOR) 5 mg tablet Take 5 mg by mouth once daily. Lactose-Free Food with Fiber (JEVITY 1.5 WEN) 0.06 gram-1.5 kcal/mL liqd 1 carton eight times per day. Flush with 160ml water for each bolus feeding. [address] (PROTONIX) 40 mg tablet propylene glycol/peg 400 (BLINK TEARS LUBRICATING) Eye Drops Use 1 Drop in both eyes as needed. traMADol (ULTRAM) 50 mg tablet Take 1 tablet by mouth twice daily. testosterone (ANDROGEL) 50 mg/5 g (1%) gel Apply 0.5 Tubes as directed once daily. No current facility-administered medications for this visit. Need for Follow up: in one week Referred/Supervised by: Dr. Nitin LEMA Billing Type: Re-assess/15 min 2 units Billed Time: 30 minutes Signed by: Zoya Hillman RD, LD documented in this encounter [facility] 07-08-2023 Nurse Note Intake information documented in the prior visit with Dr. Lowery today. [facility] 07-08-2023 Nurse Note Intake information documented in the prior visit with Dr. Lowery today. documented in this encounter [facility] 07-08-2023 History of Present illness Narrative CC:Aspiration into lower respiratory track HPI: Pt is a 72 year old male who is presenting for trouble eating and drinking. He has a history of tongue cancer, he had surgery and radiation for it. He has been having swallowing issues for 2 and a half years. He currently has a feeding tube. He has been having difficulty gaining weight. Reports having low energy. Sometimes has difficulty breathing at night. Review of patient's allergies indicates: ALLERGIES No Known Allergies Current Outpatient Medications Medication Sig Dispense Refill sertraline (ZOLOFT) 25 mg tablet Take 1 tablet by mouth once daily. furosemide (LASIX) 20 mg tablet Take 20 mg by mouth once daily. sulindac (CLINORIL) 150 mg tablet pilocarpine (ISOPTO CARPINE) 2 % ophthalmic solution 1 Drop. rosuvastatin (CRESTOR) 5 mg tablet Take 5 mg by mouth once daily. Lactose-Free Food with Fiber (JEVITY 1.5 WEN) 0.06 gram-1.5 kcal/mL liqd 1 carton eight times per day. Flush with 160ml water for each bolus feeding. [address] (PROTONIX) 40 mg tablet propylene glycol/peg 400 (BLINK TEARS LUBRICATING) Eye Drops Use 1 Drop in both eyes as needed. traMADol (ULTRAM) 50 mg tablet Take 1 tablet by mouth twice daily. testosterone (ANDROGEL) 50 mg/5 g (1%) gel Apply 0.5 Tubes as directed once daily. No current facility-administered medications for this visit. 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 Surg/ Femto/ Restor Social History Tobacco Use Smoking status: Former Packs/day: 2.00 Years: 46.00 Additional pack years: 0.00 Total pack years: 92.00 Types: Cigarettes Quit date: 09/19/2008 Years since quittin.8 Smokeless tobacco: Never Tobacco comments: Quit Vaping Use Vaping Use: Never used Substance Use Topics Alcohol use: No Drug use: No PHYSICAL EXAM: On physical examination Amy Sun is a well developed, well nourished male. Cranial nerves II-XII are grossly intact Mental status revealed patient to be alert and oriented. Mood is appropriate. Details of the physical examination: HEAD AND FACE: Physical examination of the head, neck, external nose, external ears, moth and face fails to demonstrate any significant abnormality or asymmetry to critical face to face observation. Skin and scalp are normal. NOSE: Examination of the nasal cavity revealed a septum which is midline. The mucosa is pink, and the visible turbinates are normal on anterior rhinoscopy. No polyps or purulence are noted. ORAL CAVITY AND OROPHARYNX: The oral mucosa, hard and soft palates, tongue, tonsil area, and posteriror pharyngeal wall are without lesions. NECK: Symmetric. No palpable lymphadenopahty noted. Normal salivary glands and thyroid. Larynx - mirror exam limited by gag. PROCEDURE NOTE: Recommended flexible laryngoscopy. Risks, benefits, personnel and alternatives were explained. The patient wished to proceed. S/he was re-identified and a time out obtained. PROCEDURE: Flexible Laryngoscopy PREOPERATIVE DIAGNOSIS: history oropharynx POSTOPERATIVE DIAGNOSIS: same INDICATIONS: cancer surveillance and investigation of aspiration sympotms. ANESTHESIA: Lidocaine 2% and Aurelio-Synephrine % PROCEDURE: With the patient sitting upright, informed consent was obtained. The patient was re-identified and a time out made. Topical anesthesia and vasoconstriction was applied with spray to the right and left side(s) of the nose. After waiting an appropriate period of time for anesthesia/vasoconstriction to become effective, a flexible laryngoscope was passed through the the left and right side(s) of the nose. Nasopharynx, oropharynx, hypopharynx and larynx were examined. FINDINGS: The nasopharynx and oropharynx were normal without any lesions or masses visualized. No masses or lesions were visualized at the base of tongue, vallecula, epiglottis, aryepiglottic folds, pyriform sinuses, and lateral pharyngeal waite. True vocal fold movement was intact bilaterally but with Bowed vocal folds bilaterally that do not meet at the midline.. No lesions visualized. . Significant glottic gap, excessive, patent cervical esophogeal opening and decreased tongue base and epiglottic mobility secondary to treatment scar. The patient's airway was widely patent with no evidence of obstruction. Patient tolerated the procedure well, and there were no complication Assessment: Pt is a 72 year old male who is presenting for trouble eating and drinking. He has a history of tongue cancer, he had surgery and radiation for it. He has been having swallowing issues for 2 and a half years. He currently has a feeding tube. He has been having difficulty gaining weight. Reports having low energy. Sometimes has difficulty breathing at night. Scope exam was done in clinic, it showed bowed vocal cords bilaterally and an excessively patent esophageal inlet. It also shows fibrosis of his tongue base and epiglottis with poor mobility likely leading to poor airway protection. I discussed with him that I could do repeat modified barium swallow here with our head neck speech and language pathologist and see if they can carefully evaluate him for any potential for swallowing improvement and give advice for airway protection to prevent aspiration. We discussed the risks of aspiration including pneumonia and even life-threatening infections. I discussed with him that the tongue base and epiglottic lack of mobility is an effect of radiation it may not be able to be improved much but exercises with speech and language pathologist would be the best intervention for this. His aspiration is likely multifactorial. He does have bowing of bilateral vocal cords and likely poor cough because of it. I Suggested vocal cord filler injections to help with voice and possibly strengthen cough effectiveness to help prevent aspiration but he is not interested in this at this point. I also discussed his patent esophageal inlet on not sure there is any treatment for that and is likely leading to reflux and possible spillage into the airway with aspiration. Plan: - recommended he see SOFTWARE APPLICATION TESTER and oil field tester for consideration of injection medialization for vocal folds, and swallow therapy/excecise/further evaluation. I discussed with him that any treatment for aspiration could be a total laryngectomy which would be a functional treatment it would worsen his voice but allow him to swallow safely with minimal risk of aspiration. He is not interested in considering this option. All questions were answered for him and his spouse. Medical Decision Making: Problems: Moderate: 2+ stable chronic illnesses Data: Unique test result(s) reviewed: 1 Risk: Moderate: Moderate risk from testing/treatment Medical Decision Making Level: 4 - Moderate Scribe Attestation: By signing my name below, Kim Boroks, attest that this documentation has been prepared under the direction and in the presence of Lorenzo Rivas MD. Electronically Signed: benigno Borden, June 27, 2023 3:08 PM Provider Attestation: Lorenzo Brooks MD, personally performed the services described in this documentation. All medical record entries made by the scribe were at my direction and in my presence. I have reviewed the chart and discharge instructions (if applicable) and agree that the record reflects my personal performance and is accurate and complete. MD Lorenzo William MD. August 19, 2023 1:18 AM documented in this encounter [facility] 07-08-2023 Instructions Marium Lowery APRN.ROLLER ENGRAVER - 07/08/2023 2:15 PM EDT 1) Wash the tube insertion site daily with mild soap and warm water 2) If the area around the tube becomes red apply Desitin zinc based ointment to the area twice a day. 3) Rotate the tube 360 degrees once a day 4) Crush and administer each medication separately and flush the tube with warm water between each medication. 5) Flush all feeding residue out of the tube before medication administration 6) Flush all medications out of the tube before resuming feeds to prevent the formula and medications mixing together in the tube. 7) Use the Push-Pause method when flushing the tube to help remove residue from the inside waite of the tube. 8) The tube now has an ENFit connection style port. ENFit feeding tube connections are only compatible with ENFit feeding sets and ENFit feeding syringes. Contact your supply company and request ENFit syringes for feeding/flushing 9) Remove the white adapter from the end of the feeding bag tubing and connect the tubing directly to the feeding tube. 10) Do not over tighten the connections 11) Use a dedicated toothbrush to clean the end of the feeding tube daily - this will help prevent the connections from becoming sticky. [employer]: www.[employer].org (great resource for patients with feeding tubes) [employer]: (for more information about a Button feeding tube) [email or web address].net/wp-cont ent/uploads//[facility] [email or web address] documented in this encounter [facility] 07-08-2023 History of Present illness Narrative Chief Complaint: Feeding tube is disconnecting and leaking. History of Present Illness: Mr. Amy Sun is a 72 year old male who [facility] of a leaking PEG feeding tube. Mr. 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 He subsequently developed dysphagia and has had previous events of aspiration pneumonia in the past. On 04/04/2023 he had a PEG tube placed for administration of enteral nutrition. He is currently under the management of Zoya Hillman RD for nocturnal enteral feeding via feeding pump. He currently has a Legacy style feeding connection a the the end of his PEG tube; he has had several disconnections at night resulting in loss of nutrition and extreme frustration. He has tried several different adapters at the end of the feeding tube with no luck. He has consequently become quite despondent; his has become concerned about depression associated with reliance on a feeding tube. The feeding tube has also become clogged on several occasions - this creates anxiety for both Mr. Sun and his . Other medical history: PAST MEDICAL HISTORY Diagnosis Date Epiretinal membrane (ERM) of left eye Erythrocytosis 09/15/2014 Hyperlipemia 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) 12/02/2008 Nausea with vomiting PCO (posterior capsular opacification), left Pseudophakia, both eyes Secondary and unspecified malignant neoplasm of lymph nodes of head, face, and neck 12/02/2008 Vitreous floaters I have reviewed the PMH, SH, and FH. There are no changes except for what is noted in the HPI. I have reviewed current medications and allergies. Current medications: Current Outpatient Medications on File Prior to Visit Medication Sig sertraline (ZOLOFT) 25 mg tablet Take 1 tablet by mouth once daily. sulindac (CLINORIL) 150 mg tablet rosuvastatin (CRESTOR) 5 mg tablet Take 5 mg by mouth once daily. furosemide (LASIX) 20 mg tablet Take 20 mg by mouth once daily. pilocarpine (ISOPTO CARPINE) 2 % ophthalmic solution 1 Drop. Lactose-Free Food with Fiber (JEVITY 1.5 WEN) 0.06 gram-1.5 kcal/mL liqd 1 carton eight times per day. Flush with 160ml water for each bolus feeding. pantoprazole DR (PROTONIX) 40 mg tablet propylene glycol/peg 400 (BLINK TEARS LUBRICATING) Eye Drops Use 1 Drop in both eyes as needed. traMADol (ULTRAM) 50 mg tablet Take 1 tablet by mouth twice daily. testosterone (ANDROGEL) 50 mg/5 g (1%) gel Apply 0.5 Tubes as directed once daily. No current facility-administered medications on file prior to visit. Allergies: No Known Allergies Physical Examination: Vital signs: BP 144/94 Pulse 76 Ht 188 cm (6' 2.02) Wt 69.1 kg (152 lb 6.4 oz) SpO2 94% BMI 19.56 kg/m Oxygen therapy: None General: Awake and alert, flat affected but pleasant, neatly presented, chronically ill appearing but not toxic, and in no acute distress ENT: Oral and nasal mucosa pink and dry Lungs: CTA bilaterally Heart: RRR, S1 S2 Normal, no S3 / S4 no murmur noted Abdomen: Flat, soft, non-tender, non-distended, BS active, LUQ 20 Fr traction removable PEG with Legacy connection, the tube rotates freely 360 degrees in the stoma tract, the tube is in good condition, the external bumper is tightly cinched against the skin at 2.0 cm, stoma tract positive for erythema secondary to pressure from the external bumper, negative for induration, hypergranulation tissue, drainage, pain, or odor. Extremities: Lower extremity edema absent Discussion: On further assessment, much of and Mrs Sun's anxiety and frustrations related to the feeding tube stem from knowledge deficit related to effective tube management. I took time to help answer all of their questions and provided education about the tube and tube management including correct medication administration technique which will significantly reduce clogging of the tube. Currently, Mr. Sun is crushing and combining all of his medications and flushing them into the tube. This contributes to clogging - medications must be crushed one at a time and administered separately through the tube with water flush between each medication. Formula and medications must not mix inside the tube as this contributes to drug nutrient interactions which can cause clogging. Changing the end port of the feeding tube to an ENFit connection style will resolve the issue of incidental disconnection at night. The Legacy port was removed from the end of the feeding tube and replaced with an ENFit end port. The tube was also excessively long which can contribute to clogging due to reflux of tube feeds and medications into the excess tubing, the tube was trimmed shorter by ~ 8 inches. Flush technique using the push-pause method will help clear residual formula from the waite of the internal lumen of the tube - I provided a demonstration on how to flush the tube using this technique. The external bumper was moved back to the 3 cm caleb to provide some relief from pressure on the skin around the stoma tract. This provided immediate relief. I discussed the option of changing the feeding tube from a standard profile device to a low profile button feeding tube. and Mrs. Sun were not familiar with button feeding tubes, I provided an example of a button feeding tube for them to look at. Mr. Sun is very interested in this option - I believe that changing the feeding tube to a low profile device will promote a healthier relationship with the feeding tube and may address some of the reactive depression associated with feeding tube dependence. I recommended waiting a few more months before changing the tube as I would like nutritions status to be optimal prior to changing the feeding tube. I discussed the procedure for feeding tube exchange in the clinic setting. I provided an opportunity for questions and answered all questions asked. Mr. Sun endorsed feeling better about the tube and tube management at the end of our discussion. Assessment Impression: Mr. Sun is feeding tube dependent for administration of enteral nutrition, hydration, and medication. He has experienced significant frustration with the PEG tube, most of which stems from knowledge deficit related to the device and management of the device. Education and reassurance were provided during the visit today. The end port of the PEG tube was exchanged to an ENFit connection style - this will resolve disconnection issues and incidental loss of enteral nutrition volume, protein, and calories. Correct medication administration and flushing technique should resolve clogging of the tube. Exchange to a low profile feeding tube is both clinically appropriate and reasonable, I will see Mr Sun for follow up once nutrition status has improved to exchange the tube to a low profile device. Plan: - PEG tube management 1) Wash the tube insertion site daily with mild soap and warm water 2) If the area around the tube becomes red apply Desitin zinc based ointment to the area twice a day. 3) Rotate the tube 360 degrees once a day 4) Crush and administer each medication separately and flush the tube with warm water between each medication. 5) Flush all feeding residue out of the tube before medication administration 6) Flush all medications out of the tube before resuming feeds to prevent the formula and medications mixing together in the tube. 7) Use the Push-Pause method when flushing the tube to help remove residue from the inside waite of the tube. 8) The tube now has an ENFit connection style port. ENFit feeding tube connections are only compatible with ENFit feeding sets and ENFit feeding syringes. Contact supply company and request ENFit syringes for feeding/flushing 9) Remove the white adapter from the end of the feeding bag tubing and connect the tubing directly to the feeding tube. 10) Do not over tighten the connections 11) Use a dedicated toothbrush to clean the end of the feeding tube daily - this will prevent the connections from becoming sticky. 12) [employer]: www.[employer].org (great resource for patients with feeding tubes) EMR Copy to Zoya Hillman RD Patient does not have a [employer] account. I spent a total of 60 minutes on the date of the service which included preparing to see the patient, [id number] patient care, completing clinical documentation, obtaining and/or reviewing separately obtained history, performing a medically appropriate examination, and counseling and educating the patient/family/caregiver. Marium Lowery APRN.CNS July 08, 2023 documented in this encounter [facility] 07-03-2023 History of Present illness Narrative SOCIAL WORK PROGRESS NOTE Name: Amy Sun Consult from MARTINE to meet with Pt and regarding [employer] program. SW explained the program to Pt and Christa, both of whom were emotional at times. Pt shares he had radiation treatment and is now living with residual effects of the treatment. Pt cannot take anything by mouth, food or liquid; uses a feeding tube. Pt has questions for someone who has been through a similar situation. Pt gives permission for a referral to [employer]. SW completed same and encouraged Christa to watch for a call to her number. The couple uses Christa's number as the primary number. Pt uses captel when on the phone which provides captioning during phone calls. No other needs identified. SW available on referral. Signature: NADEEM Shelton-Arley Date: July 03, 2023 Time: 4:38 PM documented in this encounter [facility] 07-03-2023 History of Present illness Narrative Oncology Nutrition Therapy Reassessment RECOMMENDED MALNUTRITION DIAGNOSIS: SEVERE PROTEIN-CALORIE MALNUTRITION In the context of Chronic Illness or Injury based on: Unintentional Weight Loss: >7.5% in 3 months Insufficient Energy Intake: Less than 75% energy intake compared to estimated needs for greater than or equal to 1 month Nutrition Diagnosis: Swallowing difficulty, related to, dysphagia 2/2 head and neck cancer, as evidenced by PEG placement and diagnosis. Nutrition Intervention: -Use of PEG feeding tube for 100% nutrition needs -Use salt and soda mouth rinse - utilize good technique for medication administration via PEG Nutrition Monitoring & Evaluation: EN intake Wt status Biochemical Markers Skin integrity Plan of care Patient Condition: Pt presents for nutrition counseling for history of malignant neoplasm of base of tongue with new onset dysphagia and Feeding tube placement 2/2 cancer. Pt is seen here for phebotomy currently. Pt had PEG placed on 04/07/[address] Godoy. Pt has had three hospitalization since that time with recurrent aspiration pneumonia. Nutrition Assessment: Patient is declining from a nutritional standpoint with multiple hospitalizations for recurring pneumonia. Patient's symptoms are: Dysphagia PEG placement NPO status No N/V/D/C Pt is currently using a combination of Boost VHC, Ensure Plus and Jevity 1.5 to provide 6621-4464 calories 06/23/23: Pt is not currently tolerating Jevity 1.5 well, he has diarrhea and pt believes it is from the fiber content. Will trial a few different things with him. He also has recurrent hospitalizations for pneumonia, which are contributing to an overall weight loss. He is now utilizing a pump for feeding nocturnally - ordered at last hospitalization. Concern for higher calorie tube feeding (2.0 formula) with gastric emptying - will order trial to test tolerance prior to change order Rx. Feeding tube clogs - discussed contacting pharmacy to discuss alternative for sulindac. PEG site looks good - improved from previous. 07/03/23: Patients main concern is recurrent aspiration pneumonia. He is strictly NPO. And c/o excessive dry mouth. No s/s of thrush, however pt has thick mucous visible in throat with foul odor. Recommended pt resume SOFTWARE APPLICATION TESTER therapy to see if guidry free water protocol is appropriate. Pt has appt with ENT next Friday. Pt continues to have issues with feeding port end staying attached to feeding set at night. He has tried multiple things mailed to him by [employer] (hayde, vasu remy connector). Recommend port end be changed out for EnFit end. Feeding tube appears to have protein build up - pt continues to have issues with clogging even with using plenty of water, use of new pill frame and scrap crusher, increasing time of crushed pills in dissolution. PEG site looks well healed with no skin issues. EN tolerance is improved with no current concerns of diarrhea. EN pump duration is still lengthly and affecting patient QOL. Provided samples of TwoCalHN to patient. Will provide change order if he is able to tolerate and shorten duration of continuous feed. Current EN intake is Jevity 1.5 at 80ml/hr until completion of 8 cartons. Readiness to Learn: Cognitive ability: Alert and oriented Motivation to learn: Eager Family support: High - Very involved in pt care Instruction provided to: Patient and Spouse Patient learns best by: Multiple Methods Factors affecting learning: None Physical limitations affecting learning: None Anthropometrics: HEIGHT/WEIGHT/BSA Height BSA (m2) Weight 12/04/2022 2.12 m2 189 lb 02/05/2023 188 cm (6' 2.02) 2.05 m2 177 lb 14.4 oz 02/14/2023 2.03 m2 174 lb 11.2 oz 02/28/2023 188 cm (6' 2.02) 2.06 m2 178 lb 9.6 oz 03/21/2023 188 cm (6' 2.02) 2.03 m2 174 lb 9.7 oz 05/29/2023 2.01 m2 170 lb 13.7 oz 06/04/2023 1.96 m2 162 lb 11.2 oz 06/23/2023 188 cm (6' 2.02) 1.94 m2 158 lb 4.6 oz Estimated body mass index is 20.31 kg/m as calculated from the following: Height as of 06/23/23: 188 cm (6' 2.02). Weight as of 06/23/23: 71.8 kg (158 lb 4.6 oz). Resting Metabolic Rate: 1616 Weight Change: 10% weight loss in 6 months Dosing Weight: 77.5 kg Estimated kilocalorie needs: 8930-3865 kilocalories determined by 35-40 kcal/kg Estimated protein needs: 93-116 grams determined by 1.2-1.5 g/kg Dosing weight Estimated fluid needs: 0931-0138 milliliters based on 1 mL per kcal Allergies: Patient has no known allergies. Medications: Current Outpatient Medications Medication Sig Dispense Refill furosemide (LASIX) 20 mg tablet Take 20 mg by mouth once daily. sulindac (CLINORIL) 150 mg tablet pilocarpine (ISOPTO CARPINE) 2 % ophthalmic solution 1 Drop. rosuvastatin (CRESTOR) 5 mg tablet Take 5 mg by mouth once daily. Lactose-Free Food with Fiber (JEVITY 1.5 WEN) 0.06 gram-1.5 kcal/mL liqd 1 carton eight times per day. Flush with 160ml water for each bolus feeding. [address] (PROTONIX) 40 mg tablet propylene glycol/peg 400 (BLINK TEARS LUBRICATING) Eye Drops Use 1 Drop in both eyes as needed. traMADol (ULTRAM) 50 mg tablet Take 1 tablet by mouth twice daily. testosterone (ANDROGEL) 50 mg/5 g (1%) gel Apply 0.5 Tubes as directed once daily. No current facility-administered medications for this visit. Need for Follow up: in one week Referred/Supervised by: Dr. Nitin LEMA Billing Type: Re-assess/15 min 3 units Billed Time: 45 minutes Signed by: Zoya Hillman RD, SHARRI documented in this encounter [facility] 06-23-2023 History of Present illness Narrative HISTORY OF PRESENT ILLNESS: Mr. 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 Patient that time was treated with chemoradiation therapy. He completed radiation therapy in February 2009. He was treated on the care Dr. Lennon. He was last seen by him on September 2017. He presents for his yearly follow-up. CURRENT STATUS: Since her last visit, Patient reports that he was admitted from June 13 to June 17, 2023 secondary to aspiration pneumonia. Of note, CT scans at that time showed multifocal pneumonia suspecting aspiration. Patient was treated with broad-spectrum antibiotics. Interim, patient was evaluated by dietary for recommendations regarding feedings. He is not on continuous feedings. He now returns. ECOG PERFORMANCE STATUS: 0- Fully active, able to carry on all pre-disease performance w/o restriction. Social History Tobacco Use Smoking status: Former Packs/day: 2.00 Years: 46.00 Additional pack years: 0.00 Total pack years: 92.00 Types: Cigarettes Quit date: 09/19/2008 Years since quittin.7 Smokeless tobacco: Never Tobacco comments: Quit Vaping Use Vaping Use: Never used Substance Use Topics Alcohol use: No Drug use: No FAMILY HISTORY Problem Relation Age of Onset Cataract Mother other (Dementia) Mother Coronary Artery Disease Father Heart Father Cataract Father Glaucoma Father Detached Retina No Family History Macular Degen No Family History Blindness No Family History Amblyopia No Family History Strabismus No Family History PAST MEDICAL HISTORY Diagnosis Date Epiretinal membrane (ERM) of left eye Erythrocytosis 09/15/2014 Hyperlipemia 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) 12/02/2008 Nausea with vomiting PCO (posterior capsular opacification), left Pseudophakia, both eyes Secondary and unspecified malignant neoplasm of lymph nodes of head, face, and neck 12/02/2008 Vitreous floaters PHYSICAL EXAM: BP 95/68 Pulse 66 Temp (Src) 97.8 (Oral) Resp 16 Ht 6' 2.016 (1.88m) Wt 158 lb 4.6 oz (71.8kg) SpO2 93% BMI 20.31 kg/(m^2). CONSTITUTIONAL: Awake, alert, oriented. HEAD (Incl. face): Normocephalic; Atraumatic. EYES: Pupils are reactive. No scleral icterus. HEENT: No oral exudates. NECK: No thyromegaly. No JVD. Evidence of neck surgery. HEMATOLOGY/LYMPHATIC: No petechiae or purpura. No tender or palpable lymph nodes in the cervical, supraclavicular, axillary or inguinal areas. RESPIRATORY: Lungs are clear to auscultation. CARDIOVASCULAR: Regular rate and rhythm. 2 + radial pulse. ABDOMEN: Non-tender, soft, positive bowel sounds. BACK/SPINE: No kyphosis or scoliosis. Non tender to palpation. MUSCULOSKELETAL: No tenderness or swelling, normal range of motion without obvious weakness. EXTREMITIES: No cyanosis, clubbing INTEGUMENTARY: No rashes or masses. NEURO: No sensory or motor deficits, normal cerebellar function, normal gait, cranial nerves intact. PSYCHIATRIC: Pleasant affect. No signs of agitation. LABS: Latest Reference Range & Units 06/04/23 14:23 Sodium 136 - 144 mmol/L 137 Potassium 3.7 - 5.1 mmol/L 4.4 Chloride 97 - 105 mmol/L 95 (L) CO2 22 - 30 mmol/L 34 (H) BUN 9 - 24 mg/dL 34 (H) Creatinine 0.73 - 1.22 mg/dL 0.73 Glucose 74 - 99 mg/dL 138 (H) Protein, Total 6.3 - 8.0 g/dL 6.5 Calcium 8.5 - 10.2 mg/dL 9.3 Magnesium 1.7 - 2.3 mg/dL 2.1 Phosphorus 2.7 - 4.8 mg/dL 3.4 Albumin 3.9 - 4.9 g/dL 3.6 (L) Bilirubin, Total 0.2 - 1.3 mg/dL 0.6 Alkaline Phosphatase 38 - 113 U/L 84 ALT 10 - 54 U/L 18 AST 14 - 40 U/L 16 Anion Gap 9 - 18 mmol/L 8 (L) eGFR >=60 mL/min/1.73m 97 WBC 3.70 - 11.00 k/uL 13.00 (H) RBC 4.20 - 6.00 m/uL 4.81 Hemoglobin 13.0 - 17.0 g/dL 14.7 Hematocrit 39.0 - 51.0 % 44.0 Platelet Count 150 - 400 k/uL 221 MCV 80.0 - 100.0 fL 91.5 MCH 26.0 - 34.0 pg 30.6 MCHC 30.5 - 36.0 g/dL 33.4 MPV 9.0 - 12.7 fL 10.5 RDW-CV 11.5 - 15.0 % 15.2 (H) DTYPE Auto Neut% % 90.9 Abs Neut (ANC) 1.45 - 7.50 k/uL 11.81 (H) Lymph% % 3.3 Abs Lymph 1.00 - 4.00 k/uL 0.43 (L) Gaston% % 4.8 Abs Gaston <0.87 k/uL 0.63 Eosin% % 0.0 Abs Eosin <0.46 k/uL <0.03 Baso% % 0.3 Abs Baso <0.11 k/uL 0.04 Immature Gran % % 0.7 IMMATURE GRANS (ABS) <0.10 k/uL 0.09 NRBC /100 WBC 0.0 Absolute nRBC <0.01 k/uL <0.01 (L): Data is abnormally low (H): Data is abnormally high RADIOLOGY: CT CHEST WITHOUT CONTRAST, , 06/14/2023 5:40 PM CDT FINDINGS: MEDIASTINUM: Visualized airways are patent. Heart is normal in size without pericardial effusion. Thoracic aorta is normal in caliber. Highly prominent precarinal subcarinal lymph nodes without significant change. No increasing adenopathy. No significant calcified coronary artery plaque. No gas throughout the esophagus suggests reflux. PLEURAL CAVITY: No evidence of pleural effusion. There is an enlarging pleural-based densities posterior medial right lower chest at the T10-T11 level. Surgical approximately 5.4 cm AP by 2.5 cm transverse diameter 4.5 cm craniocaudad diameter. No progressive bony erosion or destruction of the adjacent vertebra. Pleural-based without increasing pleural effusion. Lucency suggesting gas and possible small amounts of fluid. Variable size and prior studies, measured 4.2 cm AP diameter 05/09/2023 and 3.5 cm on 05/24/2023. Not present on PET/CT images from 2012. Question whether this chronic inflammatory process centered within the pleura or adjacent lung. LUNGS: Increasing nodular densities right lower lobe most likely inflammatory. Also some mild groundglass density. Mild interstitial density left lung base lower lobe improved from 05/24/2023. Lungs otherwise stable. No findings suspicious for metastatic disease. CHEST WALL/AXILLA: No axillary lymphadenopathy VISUALIZED UPPER ABDOMEN: No acute findings. Gastrostomy tube partially imaged. BONES: No destructive lesions. IMPRESSION: 1. Increasing nodular densities right lower lobe most likely inflammatory, correlate for pneumonitis/pneumonia. Prominent gas in the esophagus suggesting reflux, question aspiration pneumonia. 2. Enlarging pleural-based density containing small amounts of gas adjacent to the inflammatory density in the right lower lobe noted above. Seen in the posterior inferior medial right chest centered at the T10-T11 level. Question whether this a chronic inflammatory process within the lung or adjacent pleura. There is no adjacent bony erosion or increasing pleural effusion. Has been present previously of variable size, large larger on 05/09/2023 and decreased on 05/24/2023 MRI ABDOMEN WITH AND WITHOUT CONTRAST -Exam End: 03/12/23 9:59 AM FINDINGS: There are multiple bilateral renal cysts. Multiple lesions are too small to definitively characterize, but there are no overtly suspicious renal lesions. The largest in the lateral left kidney appears simple and measures 2.7 x 2.7 cm on series 8 image 28. Several lesions demonstrate precontrast T1 hyperintensity without definite suspicious nodular enhancement on postcontrast images. Some lesions demonstrate probable thin internal septations without overt focal thickening. The liver demonstrates no definite evidence of significant steatosis or suspicious focal parenchymal lesions. Gallbladder is mildly distended and otherwise unremarkable. The spleen appears normal in size. The adrenal glands are unremarkable in appearance. There is no evidence of biliary or pancreatic ductal dilatation. Pancreas appears mildly atrophic and fatty replaced without a definite discrete or suspicious enhancing nodule appreciable. There is no evidence of bulky abdominal adenopathy. There is prominent atherosclerosis of the abdominal aorta and there is aneurysmal dilatation of the infrarenal abdominal aorta measuring up to 3.3 cm for example on series 5 image 18. This is essentially new, as there was previously only minimal abdominal aortic ectasia measuring 2.3 cm. IMPRESSION: 1. Multiple bilateral renal cysts, predominantly Bosniak 1 and Bosniak 2. Some lesions are too small to fully characterize, but there are no overtly suspicious renal lesions. 2. No suspicious focal liver lesions. 3. Aneurysmal dilatation of the abdominal aorta measuring 3.3 cm, enlarging by 10 mm since 2014. Recommend continued imaging follow-up for this. EXAMINATION: CT PE STUDY, 03/03/2023, 9:54 AM EST. IMPRESSION: 1. I do not see any evidence of pulmonary embolism. There is believed to be pulmonary hypertension given prominently dilated right and left main pulmonary arteries. 2. There is believed to be reactive lio hypertrophy in the hilar and infracarinal regions. 3. The lung chen to me suggest centrilobular emphysema. There is diffuse peribronchial thickening and diffuse mild interstitial accentuation. 4. In the right lower lobe posteriorly there is subpleural airspace consolidation in a curvilinear fashion. There is also infiltrative change in the right paravertebral region in the lower lobe. There is some minimal airspace infiltrate associated with the major fissure on the right in the right upper lobe. There are several nodular irregular subcentimeter densities also seen in the right lung, both in the right lower lobe and right middle lobe. In the left lung I see some patchy consolidation and pneumonic type markings in the lingula near the diaphragm. The remaining left lung is fairly well aerated. Overall the findings to me are suggestive of developing pneumonia predominately centered in the right lower lobe with associated significant peribronchial thickening and reactive lio changes. There are some patchy areas of most likely early airspace infiltrate rather than pulmonary nodularity. There is also, especially in the lung bases, diffuse interstitial thickening. 5. Both kidneys appear to have cystic changes incidentally. CT NECK SOFT TISSUE W IVCON-DATE OF EXAM: Feb 24 2023 1:44PM RESULT: Post-treatment changes: Presumed posttreatment/postradiation changes in the neck including skin thickening, subcutaneous fat stranding, platysmal muscle thickening, and severe atrophy of the bilateral submandibular glands. Nonspecific fat stranding the bilateral parapharyngeal and carotid spaces also likely representing posterior/postradiation change. No abnormal enhancing soft tissue in the base of the tongue or elsewhere in the neck to suggest residual/recurrent neoplasm. Lymph nodes: No cervical lymphadenopathy by size, number or morphologic criteria. Small nonspecific lymph nodes are scattered throughout the neck. Aerodigestive tract: The oral cavity is partially obscured by artifact from dental amalgam. The nasal cavities, naso-oropharynx, pharyngeal mucosal space, laryngeal structures and infraglottic trachea are within normal limits. Major salivary glands: The bilateral submandibular glands appears severely atrophic, likely postradiation changes detailed above. Mild atrophy of the bilateral parotid glands, RIGHT worse than LEFT. Thyroid gland: Within normal limits. Carotid space: Patent bilateral extracranial carotid and jugular systems. Calcified and noncalcified atherosclerotic plaque resulting in moderate narrowing of the proximal RIGHT cervical ICA and mild narrowing of the proximal LEFT cervical ICA, although the study is not optimized for carotid artery assessment. Intracranial contents: Imaged portions within normal limits. Mild generalized volume loss with commensurate ventriculomegaly. Scattered hypoattenuation in the supratentorial white matter is nonspecific but likely representing sequela of chronic microvascular ischemic change. Paranasal sinuses, middle ears, mastoids: Polypoid mucosal thickening versus mucous retention cysts in the inferior RIGHT maxillary sinus. The remaining visualized paranasal sinuses are clear. Mastoid air cells and middle ear cavities appear clear. Orbits: Bilateral pseudophakia. Otherwise, orbits appear unremarkable Bones: No suspicious osseous lesions in the imaged calvarium, skull base and spine. Normal cervicothoracic alignment. Multilevel degenerative disc disease with partially calcified posterior longitudinal ligament resulting in up to level mild spinal canal narrowing at C3-C7. Multilevel mild neural foraminal narrowing. Temporomandibular joints are maintained. Lungs: Imaged lungs are clear. Please see concurrent CT chest for complete evaluation of the intrathoracic contents. IMPRESSION: Primary: 1. Expected post-treatment changes in the neck without evidence of recurrent disease in the primary site. ? Neck: 1. No cervical lymphadenopathy CHEST CT WITH CONTRAST -DATE OF EXAM: Feb 18 2023 2:05PM RESULT: Limitations: None. Lines, tubes, and devices: None. Lung parenchyma and airways: The newly noted 8 mm solid nodule seen in the right lower lobe on 02/05/2023 has slightly decreased in size to 6 mm, measured on series 4 image 155. This is thus favored to be infectious or inflammatory etiology. The newly noted discrete 4 to 5 mm clustered right lower lobe nodules seen on 02/08/2023 are unchanged, measured on series 4 image 171. In addition to the above there is relatively extensive branching [id number]-sv-[id number]-type micronodularity involving the inferior aspect of the right lower lobe, the right middle lobe and to a lesser extent the left lower lobe, this is similar to perhaps mildly progressed from 02/05/2023 and indicate an infectious or inflammatory bronchiolitis. Mild upper lung predominant emphysema is present. Adherent mucoid debris is seen within the trachea for example on series 4 image 70 and within right lower lobe bronchi for example on series 4 image 122. Mild bronchial wall thickening is noted involving segmental and subsegmental bronchi in the right lower lobe, likely indicating bronchitis. Pleural space: No pleural effusion. No pleural thickening. Lower neck, lymph nodes, and mediastinum: The imaged thyroid gland is normal. No lymphadenopathy in the supraclavicular, axillary, mediastinal, or hilar regions. Heart, pericardium, and thoracic vessels: The thoracic aorta and main pulmonary artery are normal in caliber. The cardiac chambers are normal in size. No coronary artery atherosclerotic calcifications are noted, although the study is not optimized for coronary assessment. No pericardial effusion or thickening. Bones and soft tissues: Mild to moderate multilevel thoracic spine degenerative disc disease noted. No destructive skeletal lesion is present. Upper abdomen: Please see the separate report for the concurrently obtained CT of the abdomen/pelvis. IMPRESSION: 1. Extensive branching [id number]-type micronodules are present in the right lower lobe and right middle lobe, and to a lesser extent in the left lower lobe. This is stable to slightly progressed from the CT performed on 02/05/2023, and compatible with an infectious or inflammatory bronchiolitis. 2. The newly noted 8mm right lower lobe nodule seen on 02/05/2023 has slightly decreased in size to 6 mm on today's study, and is thus presumably related to the infectious/inflammatory bronchiolitis. The newly noted cluster of 4 to 5 mm nodules seen in the right lower lobe on 02/05/2023 is unchanged on today's examination and is likely infectious or inflammatory in etiology as well. A follow-up chest CT is recommended following treatment for infection, to confirm resolution. 3. Additional incidental findings are detailed above. CT ABDOMEN AND PELVIS WITH IV CONTRAST -DATE OF EXAM: Feb 18 2023 2:05PM RESULT: Liver: Unremarkable. No mass. Biliary: No bile duct dilation. Unremarkable gallbladder. Spleen: No mass. No splenomegaly. Pancreas: No mass or duct dilation. Adrenals: No mass. Kidneys: Incidental bilateral renal cysts are noted. In addition to the cyst there are several subcentimeter low-attenuation foci in both kidneys which are too small to characterize, these are favored to represent cysts as well. There is a 9 mm intermediate density lesion at the anterior upper pole of the left kidney that is indeterminate, this is seen on series 3 image 41. There is a 9 mm intermediate density lesion at the posterior aspect of the interpolar region of the right kidney on series 3 image 57 that is indeterminate. These could represent hemorrhagic cysts or small solid renal masses. No renal collecting system dilation. GI tract: No dilation or wall thickening. Colonic diverticulosis is noted, there are no CT findings of diverticulitis. Lymph nodes: No abdominal or pelvic lymphadenopathy. Mesentery/Peritoneum: No ascites or mass. Retroperitoneum: No mass. Vasculature: - Abdominal aorta and iliac arteries: 3.2 cm infrarenal abdominal aortic aneurysm present. Moderate calcified atherosclerotic disease noted. - Celiac and SMA: Patent without stenosis. - Portal venous system (SMV, splenic vein, portal vein and branches): Patent. - Hepatic veins: Patent. Pelvis: Mild to moderate prostate enlargement. Small fat-containing left inguinal hernia. No mass, fluid collection or ascites. Bones/Soft Tissues: No destructive skeletal lesion is present. Minimal multilevel lumbar spine degenerative disc disease noted. Lower thorax: Please see the separate report for the concurrently obtained CT of the chest. IMPRESSION: 1. No acute finding in the abdomen or pelvis. 2. Indeterminate 9 mm lesions at the upper pole of the left kidney and interpolar region of the right kidney respectively, the differential diagnosis would include benign hemorrhagic cyst, or small solid renal masses. No previous contrast-enhanced CT imaging is available for comparison to assess stability. Thus further evaluation with renal protocol MRI would be recommended. 3. 3.2 cm infrarenal abdominal aortic aneurysm. 4. Additional incidental findings are detailed above including colonic diverticulosis, mild to moderate prostate enlargement and a small fat-containing left inguinal hernia. ASSESSMENT / PLAN: 1. 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 He is due to see Dr. Holder. 2. Weight loss. Patient is status post PEG. Patient is been evaluated by nutrition. He is receiving additional supplementation. He is having more trouble aspiration. 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 He is interested in an opinion at [facility] main. 3. Increasing nodular densities right lower lobe. This would likely represent aspiration however given the severity we will repeat CT scans in 3 months. 4. Pleural-based density. Again repeat CT scan in 3 months. 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 6. Right Kidney.had MRI dated March 12, 2023. This showed multiple bilateral renal cysts. Predominant Bosniak 1 and Bosniak 2. Some of these lesions are too Femara to fully characterize but there are no overtly suspicious renal masses. Some Elements Copied from my note previous note,March 21, 2023. I have updated where appropriate, and all reflect current medical decision making from today, June 23, 2023 Sushma Brandon MD documented in this encounter [facility] 06-23-2023 History of Present illness Narrative Oncology Nutrition Therapy Reassessment I have communicated my name and active licensure. The patient's identity and physical location were verified at the time of this visit. Either the patient or their legal technical services representative has been informed of the risks and benefits of -- and alternatives to -- treatment through a remote evaluation and consents to proceed with the evaluation remotely. RECOMMENDED MALNUTRITION DIAGNOSIS: SEVERE PROTEIN-CALORIE MALNUTRITION In the context of Chronic Illness or Injury based on: Unintentional Weight Loss: >7.5% in 3 months Insufficient Energy Intake: Less than 75% energy intake compared to estimated needs for greater than or equal to 1 month Nutrition Diagnosis: Swallowing difficulty, related to, dysphagia 2/2 head and neck cancer, as evidenced by PEG placement and diagnosis. Nutrition Intervention: -Use of PEG feeding tube for 100% nutrition needs; 65ml/hr until -Use salt and soda mouth rinse Nutrition Monitoring & Evaluation: EN intake Wt status Biochemical Markers Skin integrity Plan of care Patient Condition: Pt presents for nutrition counseling for history of malignant neoplasm of base of tongue with new onset dysphagia and Feeding tube placement 2/2 cancer. Pt is seen here for phebotomy currently. Pt had PEG placed on 04/07/[address] Godoy. Pt has had three hospitalization since that time. No provider has given a prescription for tube feeding formula or supplies during hospitalization or during outpatient visits. Pt states that he no one will help me get a script for this and I have to keep paying out of pocket. Pt requests assistance in feeding tube management. Will attempt to assist in the tube feeding order. Nutrition Assessment: Patient is declining from a nutritional standpoint with multiple hospitalizations for recurring pneumonia. Patient's symptoms are: Dysphagia PEG placement NPO status No N/V/D/C Pt is currently using a combination of Boost VHC, Ensure Plus and Jevity 1.5 to provide 9768-2249 calories 06/23/23: Pt is not currently tolerating Jevity 1.5 well, he has diarrhea and pt believes it is from the fiber content. Will trial a few different things with him. He also has recurrent hospitalizations for pneumonia, which are contributing to an overall weight loss. He is now utilizing a pump for feeding nocturnally - ordered at last hospitalization. Concern for higher calorie tube feeding (2.0 formula) with gastric emptying. Feeding tube clogs - discussed contacting pharmacy to discuss alternative for sulindac. PEG site looks good - improved from previous. Readiness to Learn: Cognitive ability: Alert and oriented Motivation to learn: Eager Family support: High - Very involved in pt care Instruction provided to: Patient and Spouse Patient learns best by: Multiple Methods Factors affecting learning: None Physical limitations affecting learning: None Anthropometrics: HEIGHT/WEIGHT/BSA Height BSA (m2) Weight 12/04/2022 2.12 m2 189 lb 02/05/2023 188 cm (6' 2.02) 2.05 m2 177 lb 14.4 oz 02/14/2023 2.03 m2 174 lb 11.2 oz 02/28/2023 188 cm (6' 2.02) 2.06 m2 178 lb 9.6 oz 03/21/2023 188 cm (6' 2.02) 2.03 m2 174 lb 9.7 oz 05/29/2023 2.01 m2 170 lb 13.7 oz Estimated body mass index is 20.88 kg/m as calculated from the following: Height as of 03/21/23: 188 cm (6' 2.02). Weight as of 06/04/23: 73.8 kg (162 lb 11.2 oz). Resting Metabolic Rate: 1616 Weight Change: 10% weight loss in 6 months Dosing Weight: 77.5 kg Estimated kilocalorie needs: 9326-9779 kilocalories determined by 35-40 kcal/kg Estimated protein needs: 93-116 grams determined by 1.2-1.5 g/kg Dosing weight Estimated fluid needs: 1148-3630 milliliters based on 1 mL per kcal Allergies: Patient has no known allergies. Medications: Current Outpatient Medications Medication Sig Dispense Refill sulindac (CLINORIL) 150 mg tablet pilocarpine (ISOPTO CARPINE) 2 % ophthalmic solution 1 Drop. rosuvastatin (CRESTOR) 5 mg tablet Take 5 mg by mouth once daily. Lactose-Free Food with Fiber (JEVITY 1.5 WEN) 0.06 gram-1.5 kcal/mL liqd 1 carton eight times per day. Flush with 160ml water for each bolus feeding. [address] (PROTONIX) 40 mg tablet propylene glycol/peg 400 (BLINK TEARS LUBRICATING) Eye Drops Use 1 Drop in both eyes as needed. traMADol (ULTRAM) 50 mg tablet Take 1 tablet by mouth twice daily. testosterone (ANDROGEL) 50 mg/5 g (1%) gel Apply 0.5 Tubes as directed once daily. No current facility-administered medications for this visit. Need for Follow up: in one week Referred/Supervised by: Dr. Nitin LEMA Billing Type: Re-assess/15 min 3 units Billed Time: 45 minutes Signed by: Zoya Hillman RD, SHARRI documented in this encounter [facility] 06-20-2023 History of Present illness Narrative HOSPITAL FOLLOW UP: Primary Dx: Aspiration Pneumoinia Date of Admission: 06/14/23 Date of Discharge: 06/17/23 Hospital: [facility] Since discharge, his condition has improved. There are new medications that were started while in the hospital (Levofloxacin, Prednisone, probiotic). There were not medications stopped or changed while in the hospital. His eating is NPO , his sleeping is poor, and his mobility is good Surgery was not done and is not planned. He is not having nurses coming to the home. Patient has knot on the left side of groin. Patient complains of swelling in legs, stating that the left leg is worse than the right. Chief Complaint Patient presents with Follow-up Hospital Follow-up 06/13-06/16 Pneumonia Possible Hernia Patient has knot on the left side of groin. Leg Swelling HOSPITAL FOLLOW UP: Primary Dx: Aspiration Pneumoinia Date of Admission: 06/14/23 Date of Discharge: 06/17/23 Hospital: [facility] Since discharge, his condition has improved. There are new medications that were started while in the hospital (Levofloxacin, Prednisone, probiotic). There were not medications stopped or changed while in the hospital. His eating is NPO , his sleeping is poor, and his mobility is good Surgery was not done and is not planned. He is not having nurses coming to the home. Patient has knot on the left side of groin. Patient complains of swelling in legs, stating that the left leg is worse than the right. LUIS Sun is a 72 year old male who presents to the clinic for hospital follow up. Pneumonia There is no cough or shortness of breath. This is a new problem. The current episode started 1 to 4 weeks ago. The problem occurs rarely. The problem has been resolved. Pertinent negatives include no chest pain, ear pain, fever or headaches. His symptoms are alleviated by beta-agonist. He reports complete improvement on treatment. His past medical history is significant for pneumonia. No Known Allergies Outpatient Medications Prior to Visit Medication Sig Dispense Refill Albuterol (2.5 MG/3ML) 0.083% inhalation solution Take 3 mL by nebulization every 6 hours as needed for Shortness of Breath. 360 mL 5 Albuterol 108 (90 Base) MCG/ACT Aero Soln inhaler Inhale 2 puffs every 4 hours as needed for Shortness of Breath, Respiratory Distress or Wheezing. 18 g 3 levoFLOXacin 500 MG tablet Take 1 tablet by mouth daily for 3 days. 3 tablet 0 probiotic blend capsule Take 1 capsule by mouth 2 times daily for 3 days. 6 capsule 0 SPACER FOR INHALER PRESCRIPTION Use with inhaler as directed 1 Each 0 furOSEmide (Lasix) 20 MG tablet Take 1 tablet by mouth daily. 30 tablet 0 predniSONE 10 MG tablet 4 tabs po daily x 3 days, 3 tabs po daily x 3 days, 2 tabs po daily x 3 days, 1 tab po daily x 3 days, then discontinue (Patient not taking: Reported on 08/07/2023) 30 tablet 0 Rosuvastatin (Crestor) 5 MG tablet Take 1 tablet by mouth daily. 14 tablet 0 sulindac 150 MG tablet Take 1 tablet by mouth 2 times daily. 180 tablet 1 Testosterone 25 MG/2.5GM (1%) Gel gel Place 2.5 g on skin daily. 225 g 1 Valsartan 160 MG tablet Take 1 tablet by mouth daily. 14 tablet 0 dutasteride (Avodart) 0.5 MG capsule Take 1 capsule by mouth daily. (Patient not taking: Reported on 06/04/2023) 14 capsule 0 pantoprazole Sodium 40 MG Pack Take 1 packet by mouth every morning before breakfast. am pilocarpine 2 % Solution 1 drop 3 times daily as needed for Other (PO for secretions). (Patient not taking: Reported on 09/01/2023) PILOCARPINE HCL PO Take 1 tablet by mouth daily. (Patient not taking: Reported on 06/20/2023) traMADol 50 MG tablet Take 1 tablet by mouth Every 4 hours as needed. No facility-administered medications prior to visit. 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 Chemo/RT with Cisplatin and RT and Ethyol. RT completed 02/28/09. family history includes Coronary Artery Disease in an other family member; Heart Disease - Other in his brother, father, and another family member; No known problems in his mother. reports that he has quit smoking. His smoking use included cigarettes. He has never used smokeless tobacco. He reports that he does not drink alcohol and does not use drugs. Past Surgical History: Procedure Laterality Date EGD W/ PLACEMENT OR REPLACEMENT PEG 04/04/2023 NECK SURGERY 2008 for cancer INGUINAL HERNIA REPAIR 1988 REMOVAL CATARACT (PEM) Bilateral VASECTOMY Review of Systems There were no vitals taken for this visit. Review of Systems Constitutional: Negative for chills, fatigue and fever. HENT: Negative for ear pain. Eyes: Negative for pain and visual disturbance. Respiratory: Negative for cough, chest tightness and shortness of breath. Cardiovascular: Negative for chest pain and leg swelling. Gastrointestinal: Negative for abdominal pain, constipation, diarrhea, nausea and vomiting. Endocrine: Negative. Genitourinary: Negative for difficulty urinating and dysuria. Skin: Negative for rash and wound. Allergic/Immunologic: Negative. Neurological: Negative for dizziness, light-headedness, numbness and headaches. Hematological: Negative. Psychiatric/Behavioral: Negative. Physical Exam Physical Exam Vitals and nursing note reviewed. Constitutional: Appearance: Normal appearance. HENT: Head: Normocephalic and atraumatic. Nose: Nose normal. Mouth/Throat: Mouth: Mucous membranes are moist. Pharynx: Oropharynx is clear. Eyes: Extraocular Movements: Extraocular movements intact. Conjunctiva/sclera: Conjunctivae normal. Pupils: Pupils are equal, round, and reactive to light. Cardiovascular: Rate and Rhythm: Normal rate and regular rhythm. Pulses: Normal pulses. Heart sounds: Normal heart sounds. No murmur heard. No gallop. Pulmonary: Effort: Pulmonary effort is normal. No respiratory distress. Breath sounds: Normal breath sounds. No wheezing. Musculoskeletal: General: Normal range of motion. Cervical back: Normal range of motion and neck supple. Skin: General: Skin is warm and dry. Capillary Refill: Capillary refill takes less than 2 seconds. Neurological: General: No focal deficit present. Mental Status: He is alert and oriented to person, place, and time. Mental status is at baseline. Psychiatric: Mood and Affect: Mood normal. Behavior: Behavior normal. Thought Content: Thought content normal. Judgment: Judgment normal. Assessment & Plan Problem List Items Addressed This Visit Hyperlipidemia Other Visit Diagnoses Localized edema Gunjan Godoy MD 11/19/2023, 1:15 PM documented in this encounter [facility] 06-20-2023 Instructions Gunjan Godoy MD - 06/20/2023 11:30 AM EDT Check Blood pressure every day. If systolic blood pressure in > 130, then give 80 mg of valsartan (1/2 tablet), if < 130 then hold blood pressure medication. The following attachments cannot be sent through Care Everywhere.PEG Tube Care ([facility]) ([place])documented in this encounter [facility] 06-20-2023 Telephone encounter Note ----- Message from Sushma Brandon sent at 06/20/2023 10:39 AM EDT ----- Regarding: RE: ct sure ----- Message ----- From: Monica Diaz RN Sent: 06/20/2023 10:35 AM EDT To: Sushma Brandon Subject: FW: ct May w e cancel todays appts ----- Message ----- From: Jesus Alberto Pineda, RT(R) Sent: 06/20/2023 9:21 AM EDT To: Monica Diaz RN; Shakir Arcos RN Subject: ct He had a CT chest at [facility] on 06/13. It would be the same scan as I would do today. Patient needs to know if he should still come in today for scan/labs. I see Dr. Brandon is not here today to ask. [facility] 06-20-2023 Miscellaneous Notes ----- Message from Sushma Brandon sent at 06/20/2023 10:39 AM EDT ----- Regarding: RE: ct sure ----- Message ----- From: Monica Diaz RN Sent: 06/20/2023 10:35 AM EDT To: Sushma Brandon Subject: FW: ct May w e cancel todays appts ----- Message ----- From: Jesus Alberto Pineda RT(R) Sent: 06/20/2023 9:21 AM EDT To: Monica Diaz RN; Shakir Arcos RN Subject: ct He had a CT chest at [facility] on 06/13. It would be the same scan as I would do today. Patient needs to know if he should still come in today for scan/labs. I see Dr. Brandon is not here today to ask. documented in this encounter [facility] 06-17-2023 Nurse Note Discharge instructions reviewed with patient at bedside. All questions answered to the best of this nurses ability. Patient accompanied to the front entrance via wheelchair. Patient left in the care of his . [facility] 06-17-2023 Miscellaneous Notes Discharge instructions reviewed with patient at bedside. All questions answered to the best of this nurses ability. Patient accompanied to the front entrance via wheelchair. Patient left in the care of his . Problem: Adult Inpatient Plan of Care Goal: Plan of Care Review Outcome: Adequate for Discharge Goal: Patient-Specific Goal (Individualized) Outcome: Adequate for Discharge Goal: Absence of Hospital-Acquired Illness or Injury Outcome: Adequate for Discharge Goal: Optimal Comfort and Wellbeing Outcome: Adequate for Discharge Goal: Readiness for Transition of Care Outcome: Adequate for Discharge Problem: Skin Injury Risk Increased Goal: Skin Health and Integrity Outcome: Adequate for Discharge Problem: Pneumonia Goal: Fluid Balance Outcome: Adequate for Discharge Goal: Resolution of Infection Signs and Symptoms Outcome: Adequate for Discharge Goal: Effective Oxygenation and Ventilation Outcome: Adequate for Discharge Assessment complete, no change from previous. Problem: Adult Inpatient Plan of Care Goal: Plan of Care Review Outcome: Ongoing Goal: Patient-Specific Goal (Individualized) Outcome: Ongoing Goal: Absence of Hospital-Acquired Illness or Injury Outcome: Ongoing Goal: Optimal Comfort and Wellbeing Outcome: Ongoing Goal: Readiness for Transition of Care Outcome: Ongoing Problem: Skin Injury Risk Increased Goal: Skin Health and Integrity Outcome: Ongoing Problem: Pneumonia Goal: Fluid Balance Outcome: Ongoing Goal: Resolution of Infection Signs and Symptoms Outcome: Ongoing Goal: Effective Oxygenation and Ventilation Outcome: Ongoing PT consult received and chart reviewed. Pt was admitted due to aspiration PNA in both lungs. Pt was observed ambulating in the hallway independently without any difficulty. Pt does not require a formal PT evaluation at this time. Will sign off. Pt assessment remains unchanged with any exceptions noted in flowsheets. Pt appears asleep, respirations even and unlabored. Call light within reach. Pt assessment remains unchanged with any exceptions noted in flowsheets. Pt denies any pain at this time. Pt denies any further needs. Call light within reach. Pt assessment complete. POC reviewed with pt. Pt denies any pain at this time. Pt denies any further needs. Call light within reach. Patient concerned as he was having some hemoptysis this AM. Patient educated that it could be related to coughing and/or use of oxygen. I did notify Gregg Brennan RUNNER OUT. Patient resting in bed. Assessment unchanged from prior unless otherwise noted in flowsheets. Patient denies any needs. Call light within reach. documented in this encounter [facility] 06-17-2023 Plan of care note Problem: Adult Inpatient Plan of Care Goal: Plan of Care Review Outcome: Adequate for Discharge Goal: Patient-Specific Goal (Individualized) Outcome: Adequate for Discharge Goal: Absence of Hospital-Acquired Illness or Injury Outcome: Adequate for Discharge Goal: Optimal Comfort and Wellbeing Outcome: Adequate for Discharge Goal: Readiness for Transition of Care Outcome: Adequate for Discharge Problem: Skin Injury Risk Increased Goal: Skin Health and Integrity Outcome: Adequate for Discharge Problem: Pneumonia Goal: Fluid Balance Outcome: Adequate for Discharge Goal: Resolution of Infection Signs and Symptoms Outcome: Adequate for Discharge Goal: Effective Oxygenation and Ventilation Outcome: Adequate for Discharge [facility] 06-17-2023 History of Present illness Narrative Call placed to Darnell at [facility] [place] to question what is needed for patient to transition to continous feeds at home from bolus. Darnell provided what documentation is needed. Tory AMBRIZ notified. All necessary paperwork faxed to [facility] [place] at this time to ensure patient has necessary supplies to transition to continuous feed. Patient and spouse updated. No change noted from previous assessment by this RN except what is detailed in coordinating flow sheet. Denies needs at this time. Call light in reach, bed in lowest position, SR upx2 Pt resting in medical bed watching television. No s/s of distress or discomfort noted at present time. No changes noted from previous assessment. at bedside. Safety precautions maintained. Call light within reach. Will continue to monitor. No change noted from previous assessment by this RN except what is detailed in coordinating flow sheet. Denies needs at this time. Call light in reach, bed in lowest position, SR upx2 Patient is a 30 day readmission. Previous 30 day readmission assessment completed on May 25 and is unchanged. Patient's spouse states that she has been in contact with [facility] [place] and that she has enough supplies at home for the tubefeed. They deny any current questions or needs. Will continue to monitor in case that future needs arise. 06/16/23 1007 Time In/Out Time In 1007 Time Out 1025 Total Visit Time 18 minutes Initial Evaluation/Screen Completed? yes General Information RN Approved Intervention as tolerated Admitting Diagnosis aspiration pneumonia of both lungs Surgical Procedure none Past Surgical History Past Surgical History: Procedure Laterality Date NECK SURGERY 2008 for cancer INGUINAL HERNIA REPAIR 1988 REMOVAL CATARACT (PEM) Bilateral VASECTOMY Past Medical History Past Medical History: Diagnosis Date Abnormal glucose Bilateral leg edema BPH without urinary obstruction Chronic kidney disease (CKD), stage I Degenerative joint disease Enthesopathy Essential hypertension, benign Fatigue Former smoker 2 PPD x46 years, quite 09/19/2008 GERD (gastroesophageal reflux disease) Hepatic steatosis Hyperlipidemia Impotence of organic origin Insomnia Obesity Testicular hypofunction Tongue cancer Stage IIB, T2, N1, 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 Chemo/RT with Cisplatin and RT and Ethyol. RT completed 02/28/09. Existing Precautions/Restrictions no known precautions/restrictions Previous Level of Function Bed Mobility/Transfers independent Bathing independent Upper Body Dressing independent Lower Body Dressing independent Grooming independent Toileting independent Eating independent Home Management Skills independent General Pain Documentation (Adult, OB, Peds) Presence of Pain denies pain/discomfort Presence of Pain Score (Auto-calculated) 0 Home Setting Residence House Lives With spouse First floor setup bedroom;walk-in shower;grab bars Number of Stairs to Enter Home 2 Number of Stairs Within Home 12 Cognitive Status Examination Orientation Status (Cognition) oriented x 4 Level of Consciousness alert Able to Follow Commands (Communication) WNL Personal Safety and Judgment intact Vision Screen Currently wearing corrective lenses No Speech Speech no gross deficits noted Hearing Hearing no gross deficits noted Sensory Examination Sensory Examination WFL Range of Motion (ROM) Range of Motion Examination bilateral upper extremity ROM was WFL Manual Muscle Testing (MMT) Dominant Hand right Bed Mobility Skill: Supine to Sit, Rehab Eval Level of [place]: Supine/Sit independent Transfer Skill: Sit to Stand, Rehab Eval Level of [place]: Sit/Stand independent Transfer Skill: Stand to Sit, Rehab Eval Level of [place]: Stand/Sit independent Lower Body Dressing Level of [place] independent Toileting Level of [place] independent Physical Assist/Nonphysical Assist (per report) Clinical Impression Co-evaluation/co-treatment performed? No simultaneous skilled care performed Therapy Frequency no therapy warranted Today's Treatment Included Pt presents with shortness of breath, found to have aspiration pneumonia from tub feed, COPD, respiratory insufficiency. Pt reports doing well today, no SOB noted during mobility and getting up to the bathroom prior to assessment. Pt is active at home, has had several hospitalizations related to aspiration pneumonia. Pt demonstrates baseline performance of independent, does not require any further OT at this time Continue care plan no Goals Goals For Discharge Pt will return home Therapist Recommendations At Discharge Recommendations OT Services not recommended at Discharge Plan Plan for next session OT evaluation only Therapist Information License # [id number] Referral received. Chart reviewed. Full SW assessment completed on 05/08. Pt is a 30 day readmit. Visit to pt's room, spouse at bedside. No changes from previous assessment. Pt states he continues to be independent with mobility and self care. Spouse is a major support to pt. Pt states he feels safe at home. Denies history of mental health or substance abuse. Pt denies financial concerns, has access to transportation for all medical appointments. ADMINISTRATIVE DIETITIAN will continue to follow for dc needs. DAILY PROGRESS NOTE Amy Simonsumaker 1950 Date of Evaluation: 06/16/23 9:30 AM [facility] LOS: 2 days SUBJECTIVE: Patient seen and examined. Chart, medications, labs all reviewed. Patient up in bathroom this morning. Without need or complaint. Spouse at bedside. Patient denies all reports of AMADOR, BV, LH, Dizziness, Fever, Chills, Nausea, Vomiting, Diarrhea, or Pain. Currently on room air, without sign of acute distress. Vital Signs: Blood pressure 123/83, pulse 62, temperature 98.3 F (36.8 C), temperature source Temporal, resp. rate 19, height 1.854 m (6' 1), weight 73.9 kg (163 lb 0.1 oz), SpO2 94%. O2 Sat (%): 94 % (06/15 725) O2 Device: room air (06/15 725) Flow (L/min): 0 (06/15 0427) Intake and Output: Intake/Output Summary (Last 24 hours) at 06/16/2023 1045 Last data filed at 06/16/2023 0900 Gross per 24 hour Intake 0 ml Output 400 ml Net -400 ml Daily Weight: Wt Readings from Last 3 Encounters: 06/16/23 73.9 kg (163 lb 0.1 oz) 06/04/23 73.6 kg (162 lb 4.8 oz) 06/02/23 75 kg (165 lb 6.4 oz) PHYSICAL EXAM: General: Patient awake. No acute distress. Up in bathroom this morning. Cardiovascular: Regular rate and rhythm, without murmurs, rubs, or gallops. Respiratory: Bilateral Upper and Lower Lobes without wheezes, rales, or rhonchi. Diminished BLL. Abdomen: Soft, rounded, non-tender. Bowel sounds present x4 quadrants. No rebound. No organomegaly or masses noted upon deep palpation. Extremities: No edema, clubbing or cyanosis, pulses palpable 2+ distally. Diagnostics: Lab Results Component Value Date SPGRVTYUR 1.015 06/14/2023 GLUCOSEURINE NEGATIVE 06/14/2023 BILIRUBINURI NEGATIVE 06/14/2023 KETONESURINE NEGATIVE 06/14/2023 NITRITESURIN NEGATIVE 06/14/2023 LEUKOCESTUR NEGATIVE 06/14/2023 WBCURINE NEGATIVE 06/14/2023 RBCURINE NEGATIVE 06/14/2023 BACTERIAURIN NEGATIVE 06/14/2023 CBC Lab Results Component Value Date/Time WBC 17.5 (H) 06/16/2023 04:23 AM WBC 18.1 (H) 06/15/2023 04:41 AM WBC 18.0 (H) 06/14/2023 05:15 PM HGB 11.5 (L) 06/16/2023 04:23 AM HGB 12.2 (L) 06/15/2023 04:41 AM HGB 12.8 (L) 06/14/2023 05:15 PM HCT 34.6 (L) 06/16/2023 04:23 AM HCT 37.2 (L) 06/15/2023 04:41 AM HCT 38.9 (L) 06/14/2023 05:15 PM PLATELET 185 06/16/2023 04:23 AM PLATELET 147 06/15/2023 04:41 AM PLATELET 190 06/14/2023 05:15 PM Chemistry Lab Results Component Value Date/Time GLUCOSE 170 (H) 06/16/2023 04:23 AM GLUCOSE 188 (H) 06/15/2023 04:41 AM GLUCOSE 143 (H) 06/14/2023 05:15 PM GLUCOSE 137 (H) 05/11/2023 12:10 PM GLUCOSE 165 (H) 05/11/2023 05:56 AM GLUCOSE 171 (H) 05/11/2023 12:07 AM BUN 23 (H) 06/16/2023 04:23 AM BUN 19 06/15/2023 04:41 AM BUN 24 (H) 06/14/2023 05:15 PM CREATSERUM 0.50 (L) 06/16/2023 04:23 AM CREATSERUM 0.40 (L) 06/15/2023 04:41 AM CREATSERUM 0.59 (L) 06/14/2023 05:15 PM SODIUM 139 06/16/2023 04:23 AM SODIUM 136 (L) 06/15/2023 04:41 AM SODIUM 134 (L) 06/14/2023 05:15 PM POTASSIUM 4.2 06/16/2023 04:23 AM POTASSIUM 4.3 06/15/2023 04:41 AM POTASSIUM 4.2 06/14/2023 05:15 PM CHLORIDE 105 06/16/2023 04:23 AM CHLORIDE 103 06/15/2023 04:41 AM CHLORIDE 100 06/14/2023 05:15 PM CO2 30 06/16/2023 04:23 AM CO2 26 06/15/2023 04:41 AM CO2 34 (H) 06/14/2023 05:15 PM ALBUMIN 3.2 (L) 06/16/2023 04:23 AM ALBUMIN 3.4 (L) 06/14/2023 05:15 PM ALBUMIN 3.2 (L) 05/26/2023 04:23 AM CALCIUM 8.6 06/16/2023 04:23 AM CALCIUM 8.7 06/14/2023 05:15 PM CALCIUM 8.2 (L) 05/26/2023 04:23 AM PHOSPHORUS 2.7 06/16/2023 04:23 AM PHOSPHORUS 3.1 05/11/2023 05:16 AM PHOSPHORUS 3.1 05/10/2023 04:50 AM MAGNESIUM 2.3 06/16/2023 04:23 AM MAGNESIUM 2.3 05/26/2023 04:23 AM MAGNESIUM 1.9 05/25/2023 04:41 AM COAG Lab Results Component Value Date/Time PT 15.3 (H) 06/14/2023 05:15 PM PT 16.0 (H) 05/26/2023 04:23 AM PT 13.9 05/24/2023 07:30 PM INR 1.20 (H) 06/14/2023 05:15 PM INR 1.27 (H) 05/26/2023 04:23 AM INR 1.05 05/24/2023 07:30 PM PTT 32.0 06/14/2023 05:15 PM PTT 26.8 05/24/2023 07:30 PM ABG Lab Results Component Value Date/Time HCO3 36.8 (H) 05/24/2023 07:40 PM HCO3 31.9 (H) 05/09/2023 10:30 AM HCO3 33.2 (H) 04/20/2023 04:43 AM PCO2 53 (H) 05/24/2023 07:40 PM PCO2 47 (H) 05/09/2023 10:30 AM PCO2 50 04/20/2023 04:43 AM PO2 92 05/24/2023 07:40 PM PO2 76 (L) 05/09/2023 10:30 AM IMPRESSION /PLAN: PRINCIPAL PROBLEM Aspiration pneumonia of both lungs Principal Problem: Aspiration pneumonia of both lungs Active Problems: Multiple lung nodules on CT Severe protein-calorie malnutrition Leukocytosis Squamous cell carcinoma of tongue S/P percutaneous endoscopic gastrostomy (PEG) tube placement GERD (gastroesophageal reflux disease) Acute respiratory failure with hypoxia COPD exacerbation Cough with hemoptysis Mass of pleura Anemia Elevated CRP Principal problem Aspiration Pneumonia- CT showed increasing nodular densities right lower lobe most likely inflammatory, correlate for pneumonitis/pneumonia. Prominent gas in the esophagus suggesting reflux, question aspiration pneumonia. Nutrition consulted and following. Tube feedings ordered and running. Inflammatory markers elevated. Urine antigens ordered. Influenza and COVID negative. Blood cultures pending. IV antibiotics, systemic steroids and breathing treatments. Currently on room air. Incentive spirometry. Social work consulted for discharge planning. Follow chest XR and inflammatory markers. Active problems: Leukocytosis- White count@ 17.5 this morning, down from 18.1 yesterday. Cultures pending. IV antibiotics continued. Continue to monitor. GERD- Protonix ordered for hospital stay. Resume home treatment at discharge. Squamous cell carcinoma of tongue- Continue outpatient follow up with [facility] Mass of pleura- pleural-based density containing small amounts of gas adjacent to the inflammatory density in the right lower lobe- d.w pt/family. Pt has fu with oncology. Recommend PET CT. I spent a total of 5 minutes in the management of this patient. The details of my visit are listed in the document above. Associated attestation - Angela Fitch DO - 06/17/2023 11:08 AM EDT Patient seen and examined independently 06/16/23. Meds, labs, and radiographs reviewed. Lungs coarse and heart tones regular on exam. 06/14/23 CT Chest reviewed- IMPRESSION: 1. Increasing nodular densities right lower lobe most likely inflammatory, correlate for pneumonitis/pneumonia. Prominent gas in the esophagus suggesting reflux, question aspiration pneumonia. 2. Enlarging pleural-based density containing small amounts of gas adjacent to the inflammatory density in the right lower lobe noted above. Seen in the posterior inferior medial right chest centered at the T10-T11 level. Question whether this a chronic inflammatory process within the lung or adjacent pleura. There is no adjacent bony erosion or increasing pleural effusion. Has been present previously of variable size, large larger on 05/09/2023 and decreased on 05/24/2023. TnB infltrates R>L. CRP 149.7 - 224.9 Procal 0.14 WBC 17.5 06/14/23 Blood CX NEG TD. CXR AM. Empiric Levaquin/Maxipime/Vanco w/ Solumedrol 40mg q 12hrs. Fungitell ordered. DC Vanco. All questions and concerns addressed w/ patient and at BS in regard to plan of care. I agree with assessments and plan of care. I personally spent >50% of the total time spent of 21 min on this date's billable encounter including all of the MDM for this encounter. Pharmacy to Dose - Vancomycin Progress Note PATIENT: Amy Sun Room/Bed: [facility]/ Indication: Pneumonia Trough Goal: 15-20 g/mL Current Dose: 1000 mg IV every 8 hours Most Recent Labs: VANCOMYCIN, TROUGH Date Value Ref Range Status 06/15/2023 12.1 (L) 15.0 - 20.0 UG/ML Final 05/26/2023 12.4 (L) 15.0 - 20.0 UG/ML Final 05/11/2023 16.5 15.0 - 20.0 UG/ML Final CREATININE SERUM Date Value Ref Range Status 06/15/2023 0.40 (L) 0.70 - 1.20 MG/DL Final 06/14/2023 0.59 (L) 0.70 - 1.20 MG/DL Final 05/26/2023 0.55 (L) 0.70 - 1.20 MG/DL Final BUN Date Value Ref Range Status 06/15/2023 19 7 - 20 MG/DL Final 06/14/2023 24 (H) 7 - 20 MG/DL Final 05/26/2023 19 7 - 20 MG/DL Final Patient's CrCl is estimated to be >120 mL/min Assessment and Plan: Based upon review of laboratory results and available patient information, I will take the following action(s): no changes to Vancomycin dose or dosing interval are indicated at this time. A Pharmacist will continue to follow and order drug levels and adjust dosing as clinically appropriate. If necessary, I have modified the orders in IHIS to reflect the above plan. Please feel free to contact me with any further questions. Carolyn Mari RPh,PharmJackie, [facility] Phone: [phone] Date/Time: 06/15/2023 7:57 PM ENTERAL FEEDING RECOMMENDATION Nutrition Assessment Mr. Amy Sun is a 72 y.o. male admitted to [facility] for: No diagnosis found. Indication for initiating enteral feeding: Aspiration pneumonia and throat cancer Subjective assessments / comments: Referral received for tube feeding needs.Patient admitted with concerns of SOB as well as issues with aspiration PNA with PEG due to using bolus feeds. RD is familiar with patient from previous admits. Pt typically does bolus feeds, however continuous feeds maybe more beneficial to reduce incidence of aspiration form feedings. Labs reviewed. Patient to receive EN feedings of Jevity 1.5 as continuous and this RD does recommend to maintain as continuous upon discharge. Anthropometrics: Ht Readings from Last 1 Encounters: 06/14/23 1.854 m (6' 1) Wt Readings from Last 10 Encounters: 06/14/23 74.4 kg (164 lb) 06/04/23 73.6 kg (162 lb 4.8 oz) 06/02/23 75 kg (165 lb 6.4 oz) 05/26/23 75.4 kg (166 lb 4.8 oz) 05/09/23 76.7 kg (169 lb) 04/22/23 79 kg (174 lb 3.2 oz) 04/20/23 80.2 kg (176 lb 12.8 oz) 04/08/23 78.5 kg (173 lb) 04/02/23 75.3 kg (166 lb) 03/18/23 80.3 kg (177 lb) [place] body weight: 79.9 kg (176 lb 2.4 oz) Body mass index is 21.64 kg/m . Classified as: Underweight Estimated Energy Requirements: Calories: 2864-8509 (25-30 kcals.jg IBW) Protein: 54-405 gm/day (1-1.25 gm/kg IBW) Fluids: 6779-8489 ml (25-30 ml/kg IBW)- adjust per provider rec to meet fluid needs EN Rec Enteral feeding Jevity 1.5 Goal rate 62 ml/hr Duration continuous Total mL fluids from EN 1488 Total kcal from EN 2232 Protein from EN 95 grams Water flush 215 ml every 4 hours TOTAL KCAL 2232 TOTAL PROTEIN 95 TOTAL mL FLUIDS 2423 Nutrition Related Labs: Lab Results Component Value Date GLUCOSE 188 (H) 06/15/2023 GLUCOSE 143 (H) 06/14/2023 GLUCOSE 214 (H) 05/26/2023 HGBA1C 5.9 05/10/2023 SODIUM 136 (L) 06/15/2023 POTASSIUM 4.3 06/15/2023 MAGNESIUM 2.3 05/26/2023 PHOSPHORUS 3.1 05/11/2023 ALBUMIN 3.4 (L) 06/14/2023 PREALBUMIN 17.2 (L) 04/19/2023 CALCIUM 8.7 06/14/2023 TP 6.6 06/14/2023 BUN 19 06/15/2023 CREATSERUM 0.40 (L) 06/15/2023 AST 48 06/14/2023 CRP 224.9 (H) 06/15/2023 HGB 12.2 (L) 06/15/2023 HCT 37.2 (L) 06/15/2023 B12 836 05/11/2023 [id number] 48.4 05/09/2023 FOLATE 12.7 05/11/2023 IRON 43 (L) 05/11/2023 Nutrition-Related History: Current Diet Orders Procedures DIET NPO WITHOUT meds PEG tube feedings only, nothing by mouth JEVITY 1.5 Standing Status: Standing Number of Occurrences: 1 Order Specific Question: NPO Meds: Answer: WITHOUT meds No Known Allergies Past Medical History: Diagnosis Date Abnormal glucose Bilateral leg edema BPH without urinary obstruction Chronic kidney disease (CKD), stage I Degenerative joint disease Enthesopathy Essential hypertension, benign Fatigue Former smoker 2 PPD x46 years, quite 09/19/2008 GERD (gastroesophageal reflux disease) Hepatic steatosis Hyperlipidemia Impotence of organic origin Insomnia Obesity Testicular hypofunction Tongue cancer Stage IIB, T2, N1, 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 Chemo/RT with Cisplatin and RT and Ethyol. RT completed 02/28/09. Past Surgical History: Procedure Laterality Date NECK SURGERY 2008 for cancer INGUINAL HERNIA REPAIR 1988 REMOVAL CATARACT (PEM) Bilateral VASECTOMY Nutrition Diagnosis NI-1.2 Inadequate energy intake related to decreased ability to consume sufficient energy as evidenced by hx of throat cancer and current total nutrition provided via PEG. Interventions Provide Jevity 1.5 at 30 mL/hr and advance by 15 mL q6h if well tolerated until goal rate of 62 mL/hr is reached Provide 215 mL free water flush q4h Monitoring & Evaluation Enteral Monitoring: Elevate head of bed 30-45 degrees while feeding Check gastric residuals every 4 hours when initiating feeding. May check every 6-8 hours once goal rate is achieved Hold gastric feeds for residuals more than 500 mL. Avoid holding feeds for residuals < 500 mL without other signs of intolerance and consider a prokinetic agent for GRV volumes 250-500 mL If unable to meet caloric goals after 7-10 days, consider initiating supplemental parenteral nutrition Reassess goal feed rate on an ongoing basis Daily lab draws: Phosphorus Magnesium Sodium Potassium Blood Glucose Every three days draw triglyceride lab Do not put blue dye or coca cola (or similar products) into the feeding tube Patient at high nutritional risk. Reassess 3 x week. Available by consult. Nutrition Goals: Meet estimated nutrition requirements through enteral nutrition support Pt to tolerate enteral nutrition Maintain current weight and prevent weight loss Preserve lean body mass Prevent nutrient deficiencies Maintain electrolyte and fluid balance Monitor patient weight, labs, and tolerance to enteral nutrition Daily weights @ 4 AM I/O documentation of all fluids, EN, and PO intake Matthew Soto RD, LD Registered Dietitian, Licensed Dietitian 06/15/23 Patient is resting in bed at this time. Call light in reach. Patient assessment remains unchanged at this time from previous this shift by this RN, unless otherwise documented in Flowsheets. Patient is resting in bed at this time. Call light in reach. Patient assessment remains unchanged at this time from previous this shift by this RN, unless otherwise documented in Flowsheets. Pharmacy to Dose - Vancomycin Progress Note PATIENT: Amy Sun Room[facility]Bed: [facility] Indication: Pneumonia Trough Goal: 15-20 g/mL Initial Dose: 1000 mg IV every 8 hours Next Level: 1800 06/15/23 Most Recent Labs: CREATININE SERUM Date Value Ref Range Status 06/14/2023 0.59 (L) 0.70 - 1.20 MG/DL Final 05/26/2023 0.55 (L) 0.70 - 1.20 MG/DL Final 05/25/2023 0.62 (L) 0.70 - 1.20 MG/DL Final BUN Date Value Ref Range Status 06/14/2023 24 (H) 7 - 20 MG/DL Final 05/26/2023 19 7 - 20 MG/DL Final 05/25/2023 23 (H) 7 - 20 MG/DL Final Patient's CrCl is estimated to be 119 mL/min Assessment and Plan: Based upon review of laboratory results and available patient information, I will initiate vancomycin at the above dose and frequency. A Pharmacist will continue to follow and order drug levels and adjust dosing as clinically appropriate. If necessary, I have modified the orders in IHIS to reflect the above plan. Please feel free to contact me with any further questions. Carolyn Mari RPh,PharmD, [facility] Phone: [phone] Date/Time: 06/14/2023 9:39 PM documented in this encounter [facility] 06-17-2023 Hospital course Narrative Images from the original note were not included. Discharge Summary Name: Amy Sun Age: 72 y.o. Birthday: 1950 Admit Date: 06/14/2023 5:04 PM Discharge Date: 06/17/2023 Discharge Diagnoses: Principal Problem: Aspiration pneumonia of both lungs Active Problems: Multiple lung nodules on CT Inadequate energy intake related to decreased ability to consume sufficient energy as evidenced by hx of throat cancer and current total nutrition provided via PEG. Leukocytosis Squamous cell carcinoma of tongue S/P percutaneous endoscopic gastrostomy (PEG) tube placement GERD (gastroesophageal reflux disease) Acute respiratory failure with hypoxia COPD exacerbation Cough with hemoptysis Mass of pleura Brief Summary of Hospital Course: Mr. Amy Sun is a 72 year old male with a past medical history including hypertension, hyperlipidemia, GERD, BPH, DJD, COPD, hepatic steatosis, insomnia, tongue cancer, pharyngeoesophageal dysphagia S/P PEG tube placement and former tobacco abuse who presented to ER with complaints of dyspnea. Patient's temperature was 100.5 on arrival. He was 82% on room air. CT chest did show multifocal pneumonia and suggest aspiration. Patient placed on HCAP antibiotic coverage and admitted to floor for further treatment and care. While hospitalized patients labs and VS were monitored and additional testing was ordered and reviewed. He was weaned off oxygen back to room air and has remained stable. Blood cultures drawn on arrival have remained negative to date and his MRSA screen on arrival was determined negative. Patient was treated with IV antibiotics and systemic steroids which have been transitioned to PO for completion of course for treatment of pneumonia. He was seen by tourist home keeper and recommended for continuous feeds which maybe more beneficial to reduce incidence of aspiration form feedings. learning services coordinator were consulted and discharge arrangements were discussed and patient was set up for discharge with continuous tube feedings but did deny all other needs from social work coordinator post discharge. This morning he is afebrile on room air and his white count is trending down. He states doing well and readiness to go home. He will be discharged today in stable condition with instructions to resume medications as listed below and follow up with his PCP in 1 week. Prescriptions have been sent to patients pharmacy of record except tube feed prescription which will be sent by case management to [facility]. Consultants: none Discharge Vital Signs: Blood pressure (!) 143/94, pulse 63, temperature 98.6 F (37 C), temperature source Oral, resp. rate 18, height 1.854 m (6' 1), weight 74 kg (163 lb 2.3 oz), SpO2 92%. O2 Sat (%): 92 % (06/16 1107) O2 Device: room air (06/16 1107) Discharge Diagnostics: Chest XR 06/17/2023 IMPRESSION: Nonacute chest. CT Chest 06/14/2023 IMPRESSION: 1. Increasing nodular densities right lower lobe most likely inflammatory, correlate for pneumonitis/pneumonia. Prominent gas in the esophagus suggesting reflux, question aspiration pneumonia. 2. Enlarging pleural-based density containing small amounts of gas adjacent to the inflammatory density in the right lower lobe noted above. Seen in the posterior inferior medial right chest centered at the T10-T11 level. Question whether this a chronic inflammatory process within the lung or adjacent pleura. There is no adjacent bony erosion or increasing pleural effusion. Has been present previously of variable size, large larger on 05/09/2023 and decreased on 05/24/2023. PHYSICAL EXAM HEENT: Normalcephalic, atraumatic. Pupils equal, round, reactive, to light and accomodation B/L. Bilateral nares patent without obvious drainage. Oral mucosa moist, pink, intact without ulcers or lesions. Neck: No JVD, no thyromegaly, no anterior or posterior lymphadenopathy. Cardiovascular: Regular rate and rhythm, without murmurs, rubs, or gallops. Respiratory: Bilateral Upper and Lower Lobes anterior and posteriorly without wheezes, rales, or rhonchi. Diminished BLL. Abdomen: Soft, rounded, non-tender. Bowel sounds present x4 quadrants. No rebound. No organomegaly or masses noted upon deep palpation. Extremities: No edema, clubbing or cyanosis, pulses palpable 2+ distally. Discharge Labs: Lab Results Component Value Date WBC 14.7 (H) 06/17/2023 HGB 11.6 (L) 06/17/2023 HCT 34.6 (L) 06/17/2023 PLATELET 201 06/17/2023 MCV 90.4 06/17/2023 Lab Results Component Value Date SODIUM 139 06/17/2023 POTASSIUM 4.0 06/17/2023 CHLORIDE 107 06/17/2023 CO2 31 (H) 06/17/2023 BUN 26 (H) 06/17/2023 CREATSERUM 0.58 (L) 06/17/2023 GLUCOSE 163 (H) 06/17/2023 Lab Results Component Value Date ALT 39 06/17/2023 AST 30 06/17/2023 ALKPHOS 107 06/17/2023 BILITOTAL 0.4 06/17/2023 Discharge Medications: Medication List for when you go home START taking these medications Morning Afternoon Evening Bedtime As Needed levoFLOXacin 500 MG TABS Take 1 tablet by mouth daily for 3 days. Commonly known as: LEVAQUIN Last time this was given: Ask your nurse or doctor predniSONE 10 MG TABS 4 tabs po daily x 3 days, 3 tabs po daily x 3 days, 2 tabs po daily x 3 days, 1 tab po daily x 3 days, then discontinue Commonly known as: DELTASONE probiotic blend CAPS Take 1 capsule by mouth 2 times daily for 3 days. Last time this was given: 1 capsule on June 17, 2023 9:05 AM CONTINUE taking these medications Morning Afternoon Evening Bedtime As Needed * Albuterol (2.5 MG/3ML) 0.083% inhalation solution Take 3 mL by nebulization every 6 hours as needed for Shortness of Breath. Commonly known as: PROVENTIL * Albuterol 108 (90 Base) MCG/ACT AERS inhaler Inhale 2 puffs every 4 hours as needed for Shortness of Breath, Respiratory Distress or Wheezing. For diagnoses: Chronic obstructive pulmonary disease, unspecified COPD type furOSEmide 20 MG TABS Take 1 tablet by mouth daily. Commonly known as: Lasix For diagnoses: Localized edema pantoprazole Sodium 40 MG PACK Take 1 packet by mouth every morning before breakfast. am Commonly known as: PROTONIX Last time this was given: 40 mg on June 17, 2023 9:15 AM pilocarpine 2 % SOLN 1 drop 3 times daily as needed for Other (PO for secretions). Commonly known as: PILOCAR PILOCARPINE HCL PO Take 1 tablet by mouth daily. Rosuvastatin 5 MG TABS Take 1 tablet by mouth daily. Commonly known as: Crestor For diagnoses: Hyperlipidemia, unspecified hyperlipidemia type SPACER FOR INHALER PRESCRIPTION Use with inhaler as directed For diagnoses: Chronic obstructive pulmonary disease, unspecified COPD type sulindac 150 MG TABS Take 1 tablet by mouth 2 times daily. Commonly known as: CLINORIL Testosterone 25 MG/2.5GM (1%) GEL gel Place 2.5 g on skin daily. For diagnoses: Testicular hypofunction Valsartan 160 MG TABS Take 1 tablet by mouth daily. Commonly known as: DIOVAN For diagnoses: Benign hypertension * The same medication is listed twice. Please discuss with your provider. STOP taking these medications traMADol 50 MG TABS Commonly known as: ULTRAM ASK your doctor about these medications Morning Afternoon Evening Bedtime As Needed dutasteride 0.5 MG CAPS Take 1 capsule by mouth daily. Commonly known as: Avodart For diagnoses: Benign prostatic hyperplasia with lower urinary tract symptoms, symptom details unspecified Discharge Activity: Resume pre-hospital activities as tolerated. 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 Discharge Follow-up: Gunjan Godoy MD [address] [facility] [phone] Schedule an appointment as soon as possible for a visit in 1 week(s) Follow up hospital visit, aspiration pneumonia Discharge Disposition: Patient will be discharged in stable condition. Discharge Time: Including assessment, planning, and medication reconciliation was greater than 6 min. Tory Emery CNP completing Discharge Summary for Dr. Angela Fitch Please note Portions of this note utilized [employer] dictation software, please excuse any typographical or grammatical errors Associated attestation - Angela iFtch DO - 06/17/2023 1:26 PM EDT Patient seen and examined independently 06/17/23. Meds, labs, and radiographs reviewed. Lungs diminshed and heart tones regular on exam. RA. CXR reviewed - IMPRESSION: Nonacute chest. Patient requesting DC. TnB infltrates R>L on CT. CRP 57.7 - 149.7 - 224.9 Procal 0.14 WBC 17.5 06/14/23 Blood CX NEG TD. Complete empiric Levaquin course and Pred taper. Fungitell sent 06/16/23. All questions and concerns addressed w/ patient and at BS in regard to plan of care. I agree with assessments and plan of care. I personally spent >50% of the total time spent of 14 min on this date's billable encounter including all of the MDM for this encounter. documented in this encounter [facility] 06-17-2023 Nurse Note Assessment complete, no change from previous. [facility] 06-16-2023 Plan of care note Problem: Adult Inpatient Plan of Care Goal: Plan of Care Review Outcome: Ongoing Goal: Patient-Specific Goal (Individualized) Outcome: Ongoing Goal: Absence of Hospital-Acquired Illness or Injury Outcome: Ongoing Goal: Optimal Comfort and Wellbeing Outcome: Ongoing Goal: Readiness for Transition of Care Outcome: Ongoing Problem: Skin Injury Risk Increased Goal: Skin Health and Integrity Outcome: Ongoing Problem: Pneumonia Goal: Fluid Balance Outcome: Ongoing Goal: Resolution of Infection Signs and Symptoms Outcome: Ongoing Goal: Effective Oxygenation and Ventilation Outcome: Ongoing [facility] 06-16-2023 Progress note Formatting of t his note might be different from the original. PT consult received and chart reviewed. Pt was admitted due to aspiration PNA in both lungs. Pt was observed ambulating in the hallway independently without any difficulty. Pt does not require a formal PT evaluation at this time. Will sign off. [facility] 06-16-2023 Nurse Note Pt assessment remains unchanged with any exceptions noted in flowsheets. Pt appears asleep, respirations even and unlabored. Call light within reach. [facility] 06-15-2023 Nurse Note Pt assessment remains unchanged with any exceptions noted in flowsheets. Pt denies any pain at this time. Pt denies any further needs. Call light within reach. [facility] 06-15-2023 Nurse Note Pt assessment complete. POC reviewed with pt. Pt denies any pain at this time. Pt denies any further needs. Call light within reach. [facility] 06-15-2023 History and physical note History and Physical Examination Admit date: 06/14/2023 5:04 PM Chief Complaint: Chief Complaint Patient presents with Shortness of Breath States he gets aspiration pneumonia from his tube feeds History of Present Illness: Patient is a 72 y.o. male who presented to the hospital for evaluation of shortness of breath. Patient has history of throat cancer and did receive radiation treatment to that area. He is enteric feed dependent via a PEG tube. He gets recurrent pneumonias due to aspiration. Last hospital admission was 05/25 for same. Family thinks he is aspirating his tube feeding. He started having fever and shortness of breath yesterday. He was noted to be hypoxic upon arrival. No vomiting. No chest pain. He does complain of hemoptysis. Scant amounts. Patient's temperature was 100.5 on arrival. He was 82% on room air. CT chest does show multifocal pneumonia and suggest aspiration. Patient placed on HCAP antibiotic coverage. His oxygen saturation did improve with 2 L of oxygen. He was feeling a little bit better today. Denies any other complaints. 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 Chemo/RT with Cisplatin and RT and Ethyol. RT completed 02/28/09. Past Surgical History: Procedure Laterality Date NECK SURGERY 2008 for cancer INGUINAL HERNIA REPAIR 1987 REMOVAL CATARACT (PEM) Bilateral VASECTOMY Social History Tobacco Use Smoking status: Former Types: Cigarettes Smokeless tobacco: Never Substance Use Topics Alcohol use: No Family History Problem Relation Age of Onset No known problems Mother Heart Disease - Other Father Heart Disease - Other Brother Heart Disease - Other Other Coronary Artery Disease Other Medications Prior to Admission Medication Sig Dispense Refill Last Dose Albuterol (2.5 MG/3ML) 0.083% inhalation solution Take 3 mL by nebulization every 6 hours as needed for Shortness of Breath. 360 mL 5 Past Week Albuterol 108 (90 Base) MCG/ACT Aero Soln inhaler Inhale 2 puffs every 4 hours as needed for Shortness of Breath, Respiratory Distress or Wheezing. 18 g 3 Past Week pantoprazole Sodium 40 MG Pack Take 1 packet by mouth every morning before breakfast. am 06/13/2023 pilocarpine 2 % Solution 1 drop 3 times daily as needed for Other (PO for secretions). 06/13/2023 PILOCARPINE HCL PO Take 1 tablet by mouth daily. 06/13/2023 Rosuvastatin (Crestor) 5 MG tablet Take 1 tablet by mouth daily. 14 tablet 0 06/14/2023 SPACER FOR INHALER PRESCRIPTION Use with inhaler as directed 1 Each 0 Past Month sulindac 150 MG tablet Take 1 tablet by mouth 2 times daily. 180 tablet 1 06/13/2023 Testosterone 25 MG/2.5GM (1%) Gel gel Place 2.5 g on skin daily. 225 g 1 06/13/2023 traMADol 50 MG tablet Take 1 tablet by mouth every 6 hours as needed. 06/14/2023 Valsartan 160 MG tablet Take 1 tablet by mouth daily. 14 tablet 0 06/13/2023 dutasteride (Avodart) 0.5 MG capsule Take 1 capsule by mouth daily. (Patient not taking: Reported on 06/04/2023) 14 capsule 0 More than a month furOSEmide (Lasix) 20 MG tablet Take 1 tablet by mouth daily. 30 tablet 0 More than a month No Known Allergies Review of Systems: Ten systems reviewed and found to be negative unless otherwise stated in the history and present illness. PHYSICAL EXAM: Patient Vitals for the past 8 hrs: BP Temp Temp src Pulse Resp SpO2 06/15/23 1141 107/74 97.7 F (36.5 C) Oral 65 16 100 % 06/15/23 0754 105/62 97.2 F (36.2 C) Oral 67 18 99 % General: Patient Awake. Nasal flaring. Accessory muscle use. HEENT: Normalcephalic, atraumatic. Pupils equal, round, reactive, to light and accomodation B/L. Bilateral nares patent without obvious drainage. Oral mucosa moist, pink, intact without ulcers or lesions. Neck: No JVD, no thyromegaly, no anterior or posterior lymphadenopathy. Cardiovascular: Regular rate and rhythm, without murmurs, rubs, or gallops. Respiratory: Bilateral Upper and Lower Lobes anterior and posteriorly coarse at base. Abdomen: Soft, rounded, non-tender. Bowel sounds present x4 quadrants. No rebound. No organomegaly or masses noted upon deep palpation. Extremities: No edema, clubbing or cyanosis, pulses palpable 2+ distally. Skin: Warm, Dry, Intact. No obvious rashes or lesions noted. Neuro: Patient awake, alert, orientedx3. Cranial nerves 2-12 grossly intact upon seated examination. No focal deficit noted. Diagnostics: Admission on 06/14/2023 Component Date Value TROPONIN I, HIGH SENSITI* 06/14/2023 13 WBC (WHITE BLOOD COUNT) 06/14/2023 18.0 (H) RBC 06/14/2023 4.34 HEMOGLOBIN (HGB) 06/14/2023 12.8 (L) HEMATOCRIT (HCT) 06/14/2023 38.9 (L) MEAN CELL VOLUME 06/14/2023 89.8 Mean Cell HGB 06/14/2023 29.6 MEAN CELL HGB CONCENTRAT* 06/14/2023 33.0 RBC DISTRIBUTION 06/14/2023 16.2 (H) PLATELET COUNT 06/14/2023 190 MEAN PLATELET VOLUME 06/14/2023 8.1 DIFFERENTIAL TYPE 06/14/2023 AUTO DIFF NEUTROPHILS 06/14/2023 89.6 (H) LYMPHOCYTE 06/14/2023 1.7 (L) MONOCYTE % 06/14/2023 8.2 EOSINOPHIL % 06/14/2023 0.4 BASOPHIL % 06/14/2023 0.1 Absolute Neutrophil Count 06/14/2023 16.1 (H) LYMPHOCYTES, ABSOLUTE 06/14/2023 0.3 (L) MONOCYTES, ABSOLUTE 06/14/2023 1.5 (H) ABSOLUTE EOSINOPHIL COUNT 06/14/2023 0.1 ABSOLUTE BASOPHIL COUNT 06/14/2023 0.0 Glucose 06/14/2023 143 (H) BUN 06/14/2023 24 (H) CREATININE SERUM 06/14/2023 0.59 (L) SODIUM 06/14/2023 134 (L) POTASSIUM 06/14/2023 4.2 CHLORIDE 06/14/2023 100 CALCIUM 06/14/2023 8.7 PROTEIN, TOTAL 06/14/2023 6.6 Albumin 06/14/2023 3.4 (L) BILIRUBIN, TOTAL 06/14/2023 0.9 AST 06/14/2023 48 ALKALINE PHOSPHATASE 06/14/2023 149 (H) CARBON DIOXIDE (CO2) 06/14/2023 34 (H) A/G Ratio 06/14/2023 1.1 ALT 06/14/2023 46 ESTIMATED GFR, NON AFRIC* 06/14/2023 144 ESTIMATED GFR, A* 06/14/2023 174 GFR COMMENT 06/14/2023 Average GFR for 70+ years old = 75. LACTATE 06/14/2023 1.6 PT 06/14/2023 15.3 (H) INR 06/14/2023 1.20 (H) PTT 06/14/2023 32.0 SARS COV 2 RNA, QL REAL * 06/14/2023 NOT DETECTED NARRATIVE -1 06/14/2023 This test was performed using isothermal [facility] and has been approved as Emergency Use Authorization (EUA) for the qualitative detection [id number] nucleic acid. INFLUENZA A 06/14/2023 NEGATIVE INFLUENZA B 06/14/2023 NEGATIVE LIPASE 06/14/2023 18 (L) SPECIMEN DESCRIPTION 06/14/2023 PERIPHERAL BLOOD DRAW COMMENT 06/14/2023 LFA RESULT-CULT 06/14/2023 NO GROWTH <24 HRS Report Status 06/14/2023 PENDING SPECIMEN DESCRIPTION 06/14/2023 PERIPHERAL BLOOD DRAW COMMENT 06/14/2023 RAC RESULT-CULT 06/14/2023 NO GROWTH <24 HRS Report Status 06/14/2023 PENDING COLOR, URINE 06/14/2023 YELLOW APPEARANCE, URINE 06/14/2023 CLEAR Specific Plato, Urine 06/14/2023 1.015 PH URINE 06/14/2023 7.0 Urine Protein 06/14/2023 TRACE (A) GLUCOSE, URINE 06/14/2023 NEGATIVE KETONES, URINE 06/14/2023 NEGATIVE BILIRUBIN, URINE 06/14/2023 NEGATIVE BLOOD, URINE DIPSTICK 06/14/2023 NEGATIVE NITRITES, URINE 06/14/2023 NEGATIVE UROBILINOGEN, URINE 06/14/2023 0.2 LEUKOCYTE ESTERASE, URINE 06/14/2023 NEGATIVE WBC, URINE 06/14/2023 NEGATIVE RBC, URINE 06/14/2023 NEGATIVE Epithelial Cells UA 06/14/2023 NONE Mucus 06/14/2023 NEGATIVE BACTERIA, URINE 06/14/2023 NEGATIVE CRYSTALS, URINE 06/14/2023 NONE CASTS, URINE 06/14/2023 NONE COMMENT, URINE 06/14/2023 CULTURE CRITERIA NOT MET, NO CULTURE PERFORMED. SCREEN: MRSA 06/14/2023 NEGATIVE STAPHYOCOCCUS AUREUS BY * 06/14/2023 NEGATIVE WBC (WHITE BLOOD COUNT) 06/15/2023 18.1 (H) RBC 06/15/2023 4.00 HEMOGLOBIN (HGB) 06/15/2023 12.2 (L) HEMATOCRIT (HCT) 06/15/2023 37.2 (L) MEAN CELL VOLUME 06/15/2023 93.1 Mean Cell HGB 06/15/2023 30.6 MEAN CELL HGB CONCENTRAT* 06/15/2023 32.8 RBC DISTRIBUTION 06/15/2023 16.5 (H) PLATELET COUNT 06/15/2023 147 MEAN PLATELET VOLUME 06/15/2023 8.3 DIFFERENTIAL TYPE 06/15/2023 AUTO DIFF NEUTROPHILS 06/15/2023 97.3 (H) LYMPHOCYTE 06/15/2023 1.2 (L) MONOCYTE % 06/15/2023 1.4 EOSINOPHIL % 06/15/2023 0.0 BASOPHIL % 06/15/2023 0.1 Absolute Neutrophil Count 06/15/2023 17.6 (H) LYMPHOCYTES, ABSOLUTE 06/15/2023 0.2 (L) MONOCYTES, ABSOLUTE 06/15/2023 0.2 ABSOLUTE EOSINOPHIL COUNT 06/15/2023 0.0 ABSOLUTE BASOPHIL COUNT 06/15/2023 0.0 Glucose 06/15/2023 188 (H) BUN 06/15/2023 19 CREATININE SERUM 06/15/2023 0.40 (L) SODIUM 06/15/2023 136 (L) POTASSIUM 06/15/2023 4.3 CHLORIDE 06/15/2023 103 CARBON DIOXIDE (CO2) 06/15/2023 26 ESTIMATED GFR, NON AFRIC* 06/15/2023 225 ESTIMATED GFR, A* 06/15/2023 272 GFR COMMENT 06/15/2023 Average GFR for 70+ years old = 75. PROCALCITONIN 06/15/2023 0.14 C-Reactive Protein 06/15/2023 224.9 (H) Ct chest: 1. Increasing nodular densities right lower lobe most likely inflammatory, correlate for pneumonitis/pneumonia. Prominent gas in the esophagus suggesting reflux, question aspiration pneumonia. 2. Enlarging pleural-based density containing small amounts of gas adjacent to the inflammatory density in the right lower lobe noted above. Seen in the posterior inferior medial right chest centered at the T10-T11 level. Question whether this a chronic inflammatory process within the lung or adjacent pleura. There is no adjacent bony erosion or increasing pleural effusion. Has been present previously of variable size, large larger on 05/09/2023 and decreased on 05/24/2023. Impression and Plan: Principal Problem: Aspiration pneumonia of both lungs- HCAP atb. Strict npo. Iv steroid. Follow cx. Wean off 02. Consider continuous feeding instead of bolus feeding via peg tube. Active Problems: Multiple lung nodules on CT- fu oncology. Severe protein-calorie malnutrition- nutrition cs. Continuous tube feeding. Leukocytosis- hcap atb. Follow cx. Squamous cell carcinoma of tongue- Continue outpatient follow up with [facility] S/P percutaneous endoscopic gastrostomy (PEG) tube placement GERD (gastroesophageal reflux disease) Acute respiratory failure with hypoxia- on 2l/nc was 82 % on room air. COPD exacerbation- nebs. Is. Iv steroid. Atb Cough with hemoptysis- likely 2/2 inflammation/infection. Monitor. Mass of pleura- pleural-based density containing small amounts of gas adjacent to the inflammatory density in the right lower lobe- d.w pt/family. Pt has fu with oncology. Recommend PET CT. Code Status Full Code I personally spent 19 minutes in the management of this patient, the details of my visit are listed in my documentation above. Plan of care was initiated in collaboration with attending physician. Please note Portions of this note utilized [employer] dictation software, please excuse any typographical or grammatical errors Associated attestation - Cayla Maria MD - 06/15/2023 3:00 PM EDT I have personally seen and examined Amy Sun and I agree with the physical exam as stated below. I have personally reviewed all available clinical data related to today's encounter including, but not limited to, radiology images and reports, laboratory data, and procedure reports. I have been fully involved in formulation of the assessment and plan and agree with the MICHELLE findings and plan of care as documented. 72-year-old gentleman who is known to me from recent hospitalization with history of head and neck cancer, and repeated episodes of aspiration pneumonia presented with recurrent cough, congestion, dyspnea, and fever suggesting recurrent pneumonia. Chest x-ray did not show definitive infiltrates, CT of the chest showed chronic changes in the right base with mild bronchiectatic changes likely due to recurrent aspiration, he has a right lower lobe medial tissue density that has been present on previous CT going back to February with variable size Assessment, plan, and Medical decision making: Recurrent aspiration pneumonitis, patient had low-grade fever, right lower lobe chronic changes with possible superimposed pneumonitis, continue with current antibiotic therapy Right lower lobe medial soft tissue mass likely inflammatory versus fibrotic, rule out malignancy, discussed with the patient and his at the bedside, scheduled to see Oncology in a week asked him to discuss these results Dysphagia associated with prior treatment of head and neck cancer with frequent episodes of aspiration pneumonia, discussed changing to continuous feeding as opposed to bolus feeding, only definitive solution would require tracheotomy with total separation that would allow eating but obviously changes ability to have normal speech [employer] 06-15-2023 History and physical note History and Physical Examination Admit date: 06/14/2023 5:04 PM Chief Complaint: Chief Complaint Patient presents with Shortness of Breath States he gets aspiration pneumonia from his tube feeds History of Present Illness: Patient is a 72 y.o. male who presented to the hospital for evaluation of shortness of breath. Patient has history of throat cancer and did receive radiation treatment to that area. He is enteric feed dependent via a PEG tube. He gets recurrent pneumonias due to aspiration. Last hospital admission was 05/25 for same. Family thinks he is aspirating his tube feeding. He started having fever and shortness of breath yesterday. He was noted to be hypoxic upon arrival. No vomiting. No chest pain. He does complain of hemoptysis. Scant amounts. Patient's temperature was 100.5 on arrival. He was 82% on room air. CT chest does show multifocal pneumonia and suggest aspiration. Patient placed on HCAP antibiotic coverage. His oxygen saturation did improve with 2 L of oxygen. He was feeling a little bit better today. Denies any other complaints. 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 Chemo/RT with Cisplatin and RT and Ethyol. RT completed 02/28/09. Past Surgical History: Procedure Laterality Date NECK SURGERY 2008 for cancer INGUINAL HERNIA REPAIR 1987 REMOVAL CATARACT (PEM) Bilateral VASECTOMY Social History Tobacco Use Smoking status: Former Types: Cigarettes Smokeless tobacco: Never Substance Use Topics Alcohol use: No Family History Problem Relation Age of Onset No known problems Mother Heart Disease - Other Father Heart Disease - Other Brother Heart Disease - Other Other Coronary Artery Disease Other Medications Prior to Admission Medication Sig Dispense Refill Last Dose Albuterol (2.5 MG/3ML) 0.083% inhalation solution Take 3 mL by nebulization every 6 hours as needed for Shortness of Breath. 360 mL 5 Past Week Albuterol 108 (90 Base) MCG/ACT Aero Soln inhaler Inhale 2 puffs every 4 hours as needed for Shortness of Breath, Respiratory Distress or Wheezing. 18 g 3 Past Week pantoprazole Sodium 40 MG Pack Take 1 packet by mouth every morning before breakfast. am 06/13/2023 pilocarpine 2 % Solution 1 drop 3 times daily as needed for Other (PO for secretions). 06/13/2023 PILOCARPINE HCL PO Take 1 tablet by mouth daily. 06/13/2023 Rosuvastatin (Crestor) 5 MG tablet Take 1 tablet by mouth daily. 14 tablet 0 06/14/2023 SPACER FOR INHALER PRESCRIPTION Use with inhaler as directed 1 Each 0 Past Month sulindac 150 MG tablet Take 1 tablet by mouth 2 times daily. 180 tablet 1 06/13/2023 Testosterone 25 MG/2.5GM (1%) Gel gel Place 2.5 g on skin daily. 225 g 1 06/13/2023 traMADol 50 MG tablet Take 1 tablet by mouth every 6 hours as needed. 06/14/2023 Valsartan 160 MG tablet Take 1 tablet by mouth daily. 14 tablet 0 06/13/2023 dutasteride (Avodart) 0.5 MG capsule Take 1 capsule by mouth daily. (Patient not taking: Reported on 06/04/2023) 14 capsule 0 More than a month furOSEmide (Lasix) 20 MG tablet Take 1 tablet by mouth daily. 30 tablet 0 More than a month No Known Allergies Review of Systems: Ten systems reviewed and found to be negative unless otherwise stated in the history and present illness. PHYSICAL EXAM: Patient Vitals for the past 8 hrs: BP Temp Temp src Pulse Resp SpO2 06/15/23 1141 107/74 97.7 F (36.5 C) Oral 65 16 100 % 06/15/23 0754 105/62 97.2 F (36.2 C) Oral 67 18 99 % General: Patient Awake. Nasal flaring. Accessory muscle use. HEENT: Normalcephalic, atraumatic. Pupils equal, round, reactive, to light and accomodation B/L. Bilateral nares patent without obvious drainage. Oral mucosa moist, pink, intact without ulcers or lesions. Neck: No JVD, no thyromegaly, no anterior or posterior lymphadenopathy. Cardiovascular: Regular rate and rhythm, without murmurs, rubs, or gallops. Respiratory: Bilateral Upper and Lower Lobes anterior and posteriorly coarse at base. Abdomen: Soft, rounded, non-tender. Bowel sounds present x4 quadrants. No rebound. No organomegaly or masses noted upon deep palpation. Extremities: No edema, clubbing or cyanosis, pulses palpable 2+ distally. Skin: Warm, Dry, Intact. No obvious rashes or lesions noted. Neuro: Patient awake, alert, orientedx3. Cranial nerves 2-12 grossly intact upon seated examination. No focal deficit noted. Diagnostics: Admission on 06/14/2023 Component Date Value TROPONIN I, HIGH SENSITI* 06/14/2023 13 WBC (WHITE BLOOD COUNT) 06/14/2023 18.0 (H) RBC 06/14/2023 4.34 HEMOGLOBIN (HGB) 06/14/2023 12.8 (L) HEMATOCRIT (HCT) 06/14/2023 38.9 (L) MEAN CELL VOLUME 06/14/2023 89.8 Mean Cell HGB 06/14/2023 29.6 MEAN CELL HGB CONCENTRAT* 06/14/2023 33.0 RBC DISTRIBUTION 06/14/2023 16.2 (H) PLATELET COUNT 06/14/2023 190 MEAN PLATELET VOLUME 06/14/2023 8.1 DIFFERENTIAL TYPE 06/14/2023 AUTO DIFF NEUTROPHILS 06/14/2023 89.6 (H) LYMPHOCYTE 06/14/2023 1.7 (L) MONOCYTE % 06/14/2023 8.2 EOSINOPHIL % 06/14/2023 0.4 BASOPHIL % 06/14/2023 0.1 Absolute Neutrophil Count 06/14/2023 16.1 (H) LYMPHOCYTES, ABSOLUTE 06/14/2023 0.3 (L) MONOCYTES, ABSOLUTE 06/14/2023 1.5 (H) ABSOLUTE EOSINOPHIL COUNT 06/14/2023 0.1 ABSOLUTE BASOPHIL COUNT 06/14/2023 0.0 Glucose 06/14/2023 143 (H) BUN 06/14/2023 24 (H) CREATININE SERUM 06/14/2023 0.59 (L) SODIUM 06/14/2023 134 (L) POTASSIUM 06/14/2023 4.2 CHLORIDE 06/14/2023 100 CALCIUM 06/14/2023 8.7 PROTEIN, TOTAL 06/14/2023 6.6 Albumin 06/14/2023 3.4 (L) BILIRUBIN, TOTAL 06/14/2023 0.9 AST 06/14/2023 48 ALKALINE PHOSPHATASE 06/14/2023 149 (H) CARBON DIOXIDE (CO2) 06/14/2023 34 (H) A/G Ratio 06/14/2023 1.1 ALT 06/14/2023 46 ESTIMATED GFR, NON AFRIC* 06/14/2023 144 ESTIMATED GFR, A* 06/14/2023 174 GFR COMMENT 06/14/2023 Average GFR for 70+ years old = 75. LACTATE 06/14/2023 1.6 PT 06/14/2023 15.3 (H) INR 06/14/2023 1.20 (H) PTT 06/14/2023 32.0 SARS COV 2 RNA, QL REAL * 06/14/2023 NOT DETECTED NARRATIVE -1 06/14/2023 This test was performed using isothermal [facility] and has been approved as Emergency Use Authorization (EUA) for the qualitative detection [id number] nucleic acid. INFLUENZA A 06/14/2023 NEGATIVE INFLUENZA B 06/14/2023 NEGATIVE LIPASE 06/14/2023 18 (L) SPECIMEN DESCRIPTION 06/14/2023 PERIPHERAL BLOOD DRAW COMMENT 06/14/2023 LFA RESULT-CULT 06/14/2023 NO GROWTH <24 HRS Report Status 06/14/2023 PENDING SPECIMEN DESCRIPTION 06/14/2023 PERIPHERAL BLOOD DRAW COMMENT 06/14/2023 RAC RESULT-CULT 06/14/2023 NO GROWTH <24 HRS Report Status 06/14/2023 PENDING COLOR, URINE 06/14/2023 YELLOW APPEARANCE, URINE 06/14/2023 CLEAR Specific Plato, Urine 06/14/2023 1.015 PH URINE 06/14/2023 7.0 Urine Protein 06/14/2023 TRACE (A) GLUCOSE, URINE 06/14/2023 NEGATIVE KETONES, URINE 06/14/2023 NEGATIVE BILIRUBIN, URINE 06/14/2023 NEGATIVE BLOOD, URINE DIPSTICK 06/14/2023 NEGATIVE NITRITES, URINE 06/14/2023 NEGATIVE UROBILINOGEN, URINE 06/14/2023 0.2 LEUKOCYTE ESTERASE, URINE 06/14/2023 NEGATIVE WBC, URINE 06/14/2023 NEGATIVE RBC, URINE 06/14/2023 NEGATIVE Epithelial Cells UA 06/14/2023 NONE Mucus 06/14/2023 NEGATIVE BACTERIA, URINE 06/14/2023 NEGATIVE CRYSTALS, URINE 06/14/2023 NONE CASTS, URINE 06/14/2023 NONE COMMENT, URINE 06/14/2023 CULTURE CRITERIA NOT MET, NO CULTURE PERFORMED. SCREEN: MRSA 06/14/2023 NEGATIVE STAPHYOCOCCUS AUREUS BY * 06/14/2023 NEGATIVE WBC (WHITE BLOOD COUNT) 06/15/2023 18.1 (H) RBC 06/15/2023 4.00 HEMOGLOBIN (HGB) 06/15/2023 12.2 (L) HEMATOCRIT (HCT) 06/15/2023 37.2 (L) MEAN CELL VOLUME 06/15/2023 93.1 Mean Cell HGB 06/15/2023 30.6 MEAN CELL HGB CONCENTRAT* 06/15/2023 32.8 RBC DISTRIBUTION 06/15/2023 16.5 (H) PLATELET COUNT 06/15/2023 147 MEAN PLATELET VOLUME 06/15/2023 8.3 DIFFERENTIAL TYPE 06/15/2023 AUTO DIFF NEUTROPHILS 06/15/2023 97.3 (H) LYMPHOCYTE 06/15/2023 1.2 (L) MONOCYTE % 06/15/2023 1.4 EOSINOPHIL % 06/15/2023 0.0 BASOPHIL % 06/15/2023 0.1 Absolute Neutrophil Count 06/15/2023 17.6 (H) LYMPHOCYTES, ABSOLUTE 06/15/2023 0.2 (L) MONOCYTES, ABSOLUTE 06/15/2023 0.2 ABSOLUTE EOSINOPHIL COUNT 06/15/2023 0.0 ABSOLUTE BASOPHIL COUNT 06/15/2023 0.0 Glucose 06/15/2023 188 (H) BUN 06/15/2023 19 CREATININE SERUM 06/15/2023 0.40 (L) SODIUM 06/15/2023 136 (L) POTASSIUM 06/15/2023 4.3 CHLORIDE 06/15/2023 103 CARBON DIOXIDE (CO2) 06/15/2023 26 ESTIMATED GFR, NON AFRIC* 06/15/2023 225 ESTIMATED GFR, A* 06/15/2023 272 GFR COMMENT 06/15/2023 Average GFR for 70+ years old = 75. PROCALCITONIN 06/15/2023 0.14 C-Reactive Protein 06/15/2023 224.9 (H) Ct chest: 1. Increasing nodular densities right lower lobe most likely inflammatory, correlate for pneumonitis/pneumonia. Prominent gas in the esophagus suggesting reflux, question aspiration pneumonia. 2. Enlarging pleural-based density containing small amounts of gas adjacent to the inflammatory density in the right lower lobe noted above. Seen in the posterior inferior medial right chest centered at the T10-T11 level. Question whether this a chronic inflammatory process within the lung or adjacent pleura. There is no adjacent bony erosion or increasing pleural effusion. Has been present previously of variable size, large larger on 05/09/2023 and decreased on 05/24/2023. Impression and Plan: Principal Problem: Aspiration pneumonia of both lungs- HCAP atb. Strict npo. Iv steroid. Follow cx. Wean off 02. Consider continuous feeding instead of bolus feeding via peg tube. Active Problems: Multiple lung nodules on CT- fu oncology. Severe protein-calorie malnutrition- nutrition cs. Continuous tube feeding. Leukocytosis- hcap atb. Follow cx. Squamous cell carcinoma of tongue- Continue outpatient follow up with [facility] S/P percutaneous endoscopic gastrostomy (PEG) tube placement GERD (gastroesophageal reflux disease) Acute respiratory failure with hypoxia- on 2l/nc was 82 % on room air. COPD exacerbation- nebs. Is. Iv steroid. Atb Cough with hemoptysis- likely 2/2 inflammation/infection. Monitor. Mass of pleura- pleural-based density containing small amounts of gas adjacent to the inflammatory density in the right lower lobe- d.w pt/family. Pt has fu with oncology. Recommend PET CT. Code Status Full Code I personally spent 19 minutes in the management of this patient, the details of my visit are listed in my documentation above. Plan of care was initiated in collaboration with attending physician. Please note Portions of this note utilized [employer] dictation software, please excuse any typographical or grammatical errors Associated attestation - Cayla Maria MD - 06/15/2023 3:00 PM EDT I have personally seen and examined Amy Sun and I agree with the physical exam as stated below. I have personally reviewed all available clinical data related to today's encounter including, but not limited to, radiology images and reports, laboratory data, and procedure reports. I have been fully involved in formulation of the assessment and plan and agree with the MICHELLE findings and plan of care as documented. 72-year-old gentleman who is known to me from recent hospitalization with history of head and neck cancer, and repeated episodes of aspiration pneumonia presented with recurrent cough, congestion, dyspnea, and fever suggesting recurrent pneumonia. Chest x-ray did not show definitive infiltrates, CT of the chest showed chronic changes in the right base with mild bronchiectatic changes likely due to recurrent aspiration, he has a right lower lobe medial tissue density that has been present on previous CT going back to February with variable size Assessment, plan, and Medical decision making: Recurrent aspiration pneumonitis, patient had low-grade fever, right lower lobe chronic changes with possible superimposed pneumonitis, continue with current antibiotic therapy Right lower lobe medial soft tissue mass likely inflammatory versus fibrotic, rule out malignancy, discussed with the patient and his at the bedside, scheduled to see Oncology in a week asked him to discuss these results Dysphagia associated with prior treatment of head and neck cancer with frequent episodes of aspiration pneumonia, discussed changing to continuous feeding as opposed to bolus feeding, only definitive solution would require tracheotomy with total separation that would allow eating but obviously changes ability to have normal speech documented in this encounter [facility] 06-15-2023 Nurse Note Patient concerned as he was having some hemoptysis this AM. Patient educated that it could be related to coughing and/or use of oxygen. I did notify Gregg Brennan NP. T [facility] 06-15-2023 Nurse Note Patient resting in bed. Assessment unchanged from prior unless otherwise noted in flowsheets. Patient denies any needs. Call light within reach. [facility] 06-14-2023 Emergency department Note Pt taken upstairs and left in stable condition with ETYMOLOGY TEACHER and RN at the bedside and call light within reach. [facility] 06-14-2023 Emergency department Note Pt taken upstairs and left in stable condition with ETYMOLOGY TEACHER and RN at the bedside and call light within reach. Report sheet tubed up at this time. Room assignment [id number]. Pt prefers to keep own pants on at this time for comfort. Dr Patton speaking with Dr Maria now DEPARTMENT OF EMERGENCY MEDICINE CHIEF COMPLAINT Shortness of Breath (States he gets aspiration pneumonia from his tube feeds ) LUIS Sun is a 72 y.o. male who presents with fever and shortness of breath. Patient has history of throat cancer and did receive radiation treatment to that area. He is enteric feed dependent via a PEG tube. He reportedly gets recurrent pneumonias due to aspiration. He started having fever and shortness of breath today. He was noted to be hypoxic upon arrival. Last admission for pneumonia was earlier this month. No vomiting. No chest pain. REVIEW OF SYSTEMS Review of Systems Constitutional: Positive fevers, Positive chills Eyes: No vision change, no drainage ENT: No ear pain, no sore throat Cardiovascular: No chest pain, no edema Respiratory: Positive shortness of breath, no cough Gastrointestinal: No vomiting, no diarrhea Genitourinary: No dysuria, no frequency Musculoskeletal: No joint pain, no joint swelling Integumentary: No rash, no itching Neurologic: No headache, no confusion Psychiatric: No anxiety, no depression PAST MEDICAL HISTORY Past Medical History: Diagnosis Date Abnormal glucose Bilateral leg edema BPH without urinary obstruction Chronic kidney disease (CKD), stage I Degenerative joint disease Enthesopathy Essential hypertension, benign Fatigue Former smoker 2 PPD x46 years, quite 09/19/2008 GERD (gastroesophageal reflux disease) Hepatic steatosis Hyperlipidemia Impotence of organic origin Insomnia Obesity Testicular hypofunction Tongue cancer Stage IIB, T2, N1, 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 Chemo/RT with Cisplatin and RT and Ethyol. RT completed 02/28/09. SURGICAL HISTORY Past Surgical History: Procedure Laterality Date NECK SURGERY 2008 for cancer INGUINAL HERNIA REPAIR 1988 REMOVAL CATARACT (PEM) Bilateral VASECTOMY CURRENT MEDICATIONS Current Facility-Administered Medications Medication Dose Route Frequency Provider Last Rate Last Admin Acetaminophen (TYLENOL) tablet 975 mg 975 mg Oral Once Eliseo Patton MD Sodium chloride 0.9% IV solution 1,000 mL 1,000 mL Intravenous Once Eliseo Patton MD Current Outpatient Medications Medication Sig Dispense Refill Albuterol (2.5 MG/3ML) 0.083% inhalation solution Take 3 mL by nebulization every 6 hours as needed for Shortness of Breath. 360 mL 5 Albuterol 108 (90 Base) MCG/ACT Aero Soln inhaler Inhale 2 puffs every 4 hours as needed for Shortness of Breath, Respiratory Distress or Wheezing. 18 g 3 dutasteride (Avodart) 0.5 MG capsule Take 1 capsule by mouth daily. (Patient not taking: Reported on 06/04/2023) 14 capsule 0 furOSEmide (Lasix) 20 MG tablet Take 1 tablet by mouth daily. 30 tablet 0 pantoprazole Sodium 40 MG Pack Take 1 packet by mouth every morning before breakfast. am pilocarpine 2 % Solution 1 drop 3 times daily as needed for Other (PO for secretions). PILOCARPINE HCL PO Take 1 tablet by mouth daily. Rosuvastatin (Crestor) 5 MG tablet Take 1 tablet by mouth daily. 14 tablet 0 SPACER FOR INHALER PRESCRIPTION Use with inhaler as directed 1 Each 0 sulindac 150 MG tablet Take 1 tablet by mouth 2 times daily. 180 tablet 1 Testosterone 25 MG/2.5GM (1%) Gel gel Place 2.5 g on skin daily. 225 g 1 traMADol 50 MG tablet Take 1 tablet by mouth 3 times daily as needed. 21 tablet 0 Valsartan 160 MG tablet Take 1 tablet by mouth daily. (Patient not taking: Reported on 06/02/2023) 14 tablet 0 ALLERGIES No Known Allergies FAMILY HISTORY Family History Problem Relation Age of Onset No known problems Mother Heart Disease - Other Father Heart Disease - Other Brother Heart Disease - Other Other Coronary Artery Disease Other SOCIAL HISTORY Social History Socioeconomic History Marital status: Spouse name: Not on file Number of children: Not on file Years of education: Not on file Highest education level: Not on file Occupational History Not on file Tobacco Use Smoking status: Former Types: Cigarettes Smokeless tobacco: Never Vaping Use Vaping status: Never Used Substance and Sexual Activity Alcohol use: No Drug use: No Sexual activity: Not on file Other Topics Concern Not on file Social History Narrative Not on file Social Determinants of Health Financial Resource Strain: Not on file Food Insecurity: No Food Insecurity (05/25/2023) Hunger Vital Sign Worried About Running Out of Food in the Last Year: Never true Ran Out of Food in the Last Year: Never true Transportation Needs: No Transportation Needs (05/25/2023) PRAPARE - Transportation Lack of Transportation (Medical): No Lack of Transportation (Non-Medical): No Physical Activity: Not on file Stress: Not on file Social Connections: Not on file Intimate Partner Violence: Not At Risk (05/25/2023) Humiliation, Afraid, Rape, and Kick questionnaire Fear of Current or Ex-Partner: No Emotionally Abused: No Physically Abused: No Sexually Abused: No Housing Stability: Low Risk (05/25/2023) Housing Stability Vital Sign Unable to Pay for Housing in the Last Year: No Number of Places Lived in the Last Year: 1 Unstable Housing in the Last Year: No PHYSICAL EXAM BP 154/70 Pulse 82 Temp 100.5 F (38.1 C) (Oral) Resp 22 SpO2 (!) 82% Comment: placed on 4 litters of oxygen 91% Smoking Status Former Physical Exam The patient is well-developed, well-nourished, and in no acute distress. Head is atraumatic and normocephalic. Pupils are equal and reactive. Face is symmetric. Mucous membranes are moist. Neck is supple. Heart is regular rate and rhythm. Lungs are clear to auscultation. Abdomen is soft, nontender, nondistended. Peg tube site appears clean, dry, and intact. Skin is warm and dry. Extremities are warm and well perfused and without acute deformity. Neurologically, the patient is awake, alert, and without acute deficit. Psychiatrically, the patient is calm and cooperative. ED COURSE & MEDICAL DECISION MAKING EKG interpretation: Sinus rhythm at 84 beats per minute. Normal CT interval. Normal QRS duration. Normal axis. No acute ST elevations. No left bundle-branch block. Patient has a fever, elevated white count, and hypoxia. He has a history of aspiration pneumonias recurrently. Blood cultures drawn. Levaquin, cefepime, and vancomycin have been given. Chest x-ray did not show any obvious pneumonia, but patient is requiring supplemental oxygen and does not have any other symptoms consistent with infection. I did send him down for a CT scan. The results of the CT scan are pending at this time. Patient is admitted to Dr. Maria. Impression: 1. Respiratory insufficiency 2. COPD 3. Probable pneumonia Disposition: Admission Eliseo Patton MD 06/14/23 190 documented in this encounter [facility] 06-14-2023 Emergency department Note Report sheet tubed up at this time. [facility] 06-14-2023 Emergency department Note Room assignment [id number]. [facility] 06-14-2023 Emergency department Note Pt prefers to keep own pants on at this time for comfort. [facility] 06-14-[address] Patton speaking with Dr Maria now [facility] 06-14-2023 Physician Emergency department Note DEPARTMENT OF EMERGENCY MEDICINE CHIEF COMPLAINT Shortness of Breath (States he gets aspiration pneumonia from his tube feeds ) LUIS Sun is a 72 y.o. male who presents with fever and shortness of breath. Patient has history of throat cancer and did receive radiation treatment to that area. He is enteric feed dependent via a PEG tube. He reportedly gets recurrent pneumonias due to aspiration. He started having fever and shortness of breath today. He was noted to be hypoxic upon arrival. Last admission for pneumonia was earlier this month. No vomiting. No chest pain. REVIEW OF SYSTEMS Review of Systems Constitutional: Positive fevers, Positive chills Eyes: No vision change, no drainage ENT: No ear pain, no sore throat Cardiovascular: No chest pain, no edema Respiratory: Positive shortness of breath, no cough Gastrointestinal: No vomiting, no diarrhea Genitourinary: No dysuria, no frequency Musculoskeletal: No joint pain, no joint swelling Integumentary: No rash, no itching Neurologic: No headache, no confusion Psychiatric: No anxiety, no depression PAST MEDICAL HISTORY Past Medical History: Diagnosis Date Abnormal glucose Bilateral leg edema BPH without urinary obstruction Chronic kidney disease (CKD), stage I Degenerative joint disease Enthesopathy Essential hypertension, benign Fatigue Former smoker 2 PPD x46 years, quite 09/19/2008 GERD (gastroesophageal reflux disease) Hepatic steatosis Hyperlipidemia Impotence of organic origin Insomnia Obesity Testicular hypofunction Tongue cancer Stage IIB, T2, N1, 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 Chemo/RT with Cisplatin and RT and Ethyol. RT completed 02/28/09. SURGICAL HISTORY Past Surgical History: Procedure Laterality Date NECK SURGERY 2008 for cancer INGUINAL HERNIA REPAIR 1987 REMOVAL CATARACT (PEM) Bilateral VASECTOMY CURRENT MEDICATIONS Current Facility-Administered Medications Medication Dose Route Frequency Provider Last Rate Last Admin Acetaminophen (TYLENOL) tablet 975 mg 975 mg Oral Once Eliseo Patton MD Sodium chloride 0.9% IV solution 1,000 mL 1,000 mL Intravenous Once Eliseo Patton MD Current Outpatient Medications Medication Sig Dispense Refill Albuterol (2.5 MG/3ML) 0.083% inhalation solution Take 3 mL by nebulization every 6 hours as needed for Shortness of Breath. 360 mL 5 Albuterol 108 (90 Base) MCG/ACT Aero Soln inhaler Inhale 2 puffs every 4 hours as needed for Shortness of Breath, Respiratory Distress or Wheezing. 18 g 3 dutasteride (Avodart) 0.5 MG capsule Take 1 capsule by mouth daily. (Patient not taking: Reported on 06/04/2023) 14 capsule 0 furOSEmide (Lasix) 20 MG tablet Take 1 tablet by mouth daily. 30 tablet 0 pantoprazole Sodium 40 MG Pack Take 1 packet by mouth every morning before breakfast. am pilocarpine 2 % Solution 1 drop 3 times daily as needed for Other (PO for secretions). PILOCARPINE HCL PO Take 1 tablet by mouth daily. Rosuvastatin (Crestor) 5 MG tablet Take 1 tablet by mouth daily. 14 tablet 0 SPACER FOR INHALER PRESCRIPTION Use with inhaler as directed 1 Each 0 sulindac 150 MG tablet Take 1 tablet by mouth 2 times daily. 180 tablet 1 Testosterone 25 MG/2.5GM (1%) Gel gel Place 2.5 g on skin daily. 225 g 1 traMADol 50 MG tablet Take 1 tablet by mouth 3 times daily as needed. 21 tablet 0 Valsartan 160 MG tablet Take 1 tablet by mouth daily. (Patient not taking: Reported on 06/02/2023) 14 tablet 0 ALLERGIES No Known Allergies FAMILY HISTORY Family History Problem Relation Age of Onset No known problems Mother Heart Disease - Other Father Heart Disease - Other Brother Heart Disease - Other Other Coronary Artery Disease Other SOCIAL HISTORY Social History Socioeconomic History Marital status: Spouse name: Not on file Number of children: Not on file Years of education: Not on file Highest education level: Not on file Occupational History Not on file Tobacco Use Smoking status: Former Types: Cigarettes Smokeless tobacco: Never Vaping Use Vaping status: Never Used Substance and Sexual Activity Alcohol use: No Drug use: No Sexual activity: Not on file Other Topics Concern Not on file Social History Narrative Not on file Social Determinants of Health Financial Resource Strain: Not on file Food Insecurity: No Food Insecurity (05/25/2023) Hunger Vital Sign Worried About Running Out of Food in the Last Year: Never true Ran Out of Food in the Last Year: Never true Transportation Needs: No Transportation Needs (05/25/2023) PRAPARE - Transportation Lack of Transportation (Medical): No Lack of Transportation (Non-Medical): No Physical Activity: Not on file Stress: Not on file Social Connections: Not on file Intimate Partner Violence: Not At Risk (05/25/2023) Humiliation, Afraid, Rape, and Kick questionnaire Fear of Current or Ex-Partner: No Emotionally Abused: No Physically Abused: No Sexually Abused: No Housing Stability: Low Risk (05/25/2023) Housing Stability Vital Sign Unable to Pay for Housing in the Last Year: No Number of Places Lived in the Last Year: 1 Unstable Housing in the Last Year: No PHYSICAL EXAM BP 154/70 Pulse 82 Temp 100.5 F (38.1 C) (Oral) Resp 22 SpO2 (!) 82% Comment: placed on 4 litters of oxygen 91% Smoking Status Former Physical Exam The patient is well-developed, well-nourished, and in no acute distress. Head is atraumatic and normocephalic. Pupils are equal and reactive. Face is symmetric. Mucous membranes are moist. Neck is supple. Heart is regular rate and rhythm. Lungs are clear to auscultation. Abdomen is soft, nontender, nondistended. Peg tube site appears clean, dry, and intact. Skin is warm and dry. Extremities are warm and well perfused and without acute deformity. Neurologically, the patient is awake, alert, and without acute deficit. Psychiatrically, the patient is calm and cooperative. ED COURSE & MEDICAL DECISION MAKING EKG interpretation: Sinus rhythm at [address] interval. Normal QRS duration. Normal axis. No acute ST elevations. No left bundle-branch block. Patient has a fever, elevated white count, and hypoxia. He has a history of aspiration pneumonias recurrently. Blood cultures drawn. Levaquin, cefepime, and vancomycin have been given. Chest x-ray did not show any obvious pneumonia, but patient is requiring supplemental oxygen and does not have any other symptoms consistent with infection. I did send him down for a CT scan. The results of the CT scan are pending at this time. Patient is admitted to Dr. Maria. Impression: 1. Respiratory insufficiency 2. COPD 3. Probable pneumonia Disposition: Admission Eliseo Patton MD 06/14/[id number] [facility] Work Phone: 06-11-2023 Note Date of Procedure 06/11/2023. Grazing Examiner Information Buffing And Sueding Machine Operator: alexus. Interpretation Right Eye Normal without fluid. Findings include Epiretinal membrane. Left Eye Abnormal foveal contour. Findings include Epiretinal membrane, Vitelliform lesion. Interval Change Right Eye Stable. Left Eye Stable. [facility] 06-11-2023 Instructions Naida Phillips MD - 06/11/2023 1:41 PM EDT If you have any questions please contact our office at [phone]. After office hours or on the weekend, please call Dr. Phillips on his cell phone at [phone]. documented in this encounter [facility] 06-11-2023 History of Present illness Narrative ASSESSMENT/PLAN: 1. Epiretinal membrane (ERM) of left eye - ICD9: 362.56, ICD10: H35.372 (primary diagnosis) 2. Vitelliform lesion of macula, Left eye - ICD9: 362.76, ICD10: H35.54 -Continue to monitor, return in 1 year for OCT 3. Pseudophakia of both eyes - ICD9: V43.1, ICD10: Z96.1 -Intraocular lens well centered, both eyes 4. Essential hypertension - ICD9: 401.9, ICD10: I10 -Continue to monitor with primary care physician. I have confirmed and edited as necessary the relevant HPI, ophthalmic history, ROS, and the neuro exam findings as obtained by others. I have seen and examined Amy Sun. I have discussed the case and the management of this patient's care with the Resident/Fellow, if applicable. I also have reviewed and agree with the assessment and plan as stated above and agree with all of its relevant components. documented in this encounter [facility] 06-06-2023 History of Present illness Narrative Oncology Nutrition Therapy Reassessment I have communicated my name and active licensure. The patient's identity and physical location were verified at the time of this visit. Either the patient or their legal technical services representative has been informed of the risks and benefits of -- and alternatives to -- treatment through a remote evaluation and consents to proceed with the evaluation remotely. RECOMMENDED MALNUTRITION DIAGNOSIS: SEVERE PROTEIN-CALORIE MALNUTRITION In the context of Chronic Illness or Injury based on: Unintentional Weight Loss: >7.5% in 3 months Insufficient Energy Intake: Less than 75% energy intake compared to estimated needs for greater than or equal to 1 month Nutrition Diagnosis: Swallowing difficulty, related to, dysphagia 2/2 head and neck cancer, as evidenced by PEG placement and diagnosis. Nutrition Intervention: -Use of PEG feeding tube for 100% nutrition needs - Use salt and soda mouth rinse Nutrition Monitoring & Evaluation: EN intake Wt status Biochemical Markers Skin integrity Plan of care Patient Condition: Pt presents for nutrition counseling for history of malignant neoplasm of base of tongue with new onset dysphagia and Feeding tube placement 2/2 cancer. Pt is seen here for phebotomy currently. Pt had PEG placed on 04/07/[address] Godoy. Pt has had three hospitalization since that time. No provider has given a prescription for tube feeding formula or supplies during hospitalization or during outpatient visits. Pt states that he no one will help me get a script for this and I have to keep paying out of pocket. Pt requests assistance in feeding tube management. Will attempt to assist in the tube feeding order. Nutrition Assessment: Patient is declining from a nutritional standpoint with multiple hospitalizations for recurring pneumonia. Patient's symptoms are: Dysphagia PEG placement NPO status No N/V/D/C Pressure injury starting at PEG Pt is currently using a combination of Boost VHC, Ensure Plus and Jevity 1.5 to provide >2800 calories Topics addressed: Caring for skin, rotating PEG bolster to avoid further pressure injury, continue to try to achieve 2800 calories. No evidence of thrush at this time. Duscussed oral hygiene and changing to non-alcohol based mouth rinse - provided recipe for soda/salt rinse. Submitted paperwork for Luci to provide Jevity 1.5 @ 7 cartons per day and syringes, provider Dr. Brandon. Awaiting [facility] for insurance coverage. Educational materials provided: Tube Feeding Instruction Booklet 06/06/23: Pt is stable on Enteral Nutrition and is currently taking the following daily: 3 boost 1 jevity 2 ensure In the next week, he will be moving to all Jevity 1.5 at 8 cartons per day. Symptoms: No N/V/C/D Not eating or drinking by mouth Uses salt and soda mouth rinse and is careful about oral hygiene with risk for thrush Readiness to Learn: Cognitive ability: Alert and oriented Motivation to learn: Eager Family support: High - Very involved in pt care Instruction provided to: Patient and Spouse Patient learns best by: Multiple Methods Factors affecting learning: None Physical limitations affecting learning: None Anthropometrics: HEIGHT/WEIGHT/BSA Height BSA (m2) Weight 12/04/2022 2.12 m2 189 lb 02/05/2023 188 cm (6' 2.02) 2.05 m2 177 lb 14.4 oz 02/14/2023 2.03 m2 174 lb 11.2 oz 02/28/2023 188 cm (6' 2.02) 2.06 m2 178 lb 9.6 oz 03/21/2023 188 cm (6' 2.02) 2.03 m2 174 lb 9.7 oz 05/29/2023 2.01 m2 170 lb 13.7 oz Estimated body mass index is 20.88 kg/m as calculated from the following: Height as of 03/21/23: 188 cm (6' 2.02). Weight as of 06/04/23: 73.8 kg (162 lb 11.2 oz). Resting Metabolic Rate: 1616 Weight Change: 10% weight loss in 6 months Dosing Weight: 77.5 kg Estimated kilocalorie needs: 3793-0831 kilocalories determined by 35-40 kcal/kg Estimated protein needs: 93-116 grams determined by 1.2-1.5 g/kg Dosing weight Estimated fluid needs: 9899-5340 milliliters based on 1 mL per kcal Allergies: Patient has no known allergies. Medications: Current Outpatient Medications Medication Sig Dispense Refill pilocarpine (ISOPTO CARPINE) 2 % ophthalmic solution 1 Drop. rosuvastatin (CRESTOR) 5 mg tablet Take 5 mg by mouth once daily. Lactose-Free Food with Fiber (JEVITY 1.5 WEN) 0.06 gram-1.5 kcal/mL liqd 1 carton eight times per day. Flush with 160ml water for each bolus feeding. [address] (PROTONIX) 40 mg tablet propylene glycol/peg 400 (BLINK TEARS LUBRICATING) Eye Drops Use 1 Drop in both eyes as needed. traMADol (ULTRAM) 50 mg tablet Take 1 tablet by mouth twice daily. testosterone (ANDROGEL) 50 mg/5 g (1%) gel Apply 0.5 Tubes as directed once daily. No current facility-administered medications for this visit. Need for Follow up: in one week Referred/Supervised by: Dr. Brandon MNMary Billing Type: Re-assess/15 min 3 units Billed Time: 45 minutes Signed by: Zoya Hillman RD, LD documented in this encounter [facility] 06-04-2023 History of Present illness Narrative HISTORY OF PRESENT ILLNESS: Mr. 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 Patient that time was treated with chemoradiation therapy. He completed radiation therapy in February 2009. He was treated on the care Dr. Lennon. He was last seen by him on September 2017. He presents for his yearly follow-up. CURRENT STATUS: He presents today in follow-up. Since his last visit, he reports that he was seen by Dr. 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 Patient has been seen by Dr. Douglas and surgery. Patient was found to be in need of a PEG tube and no longer taking food or fluids by mouth due to aspiration. This was placed 04/07/2023. They have been purchasing their own supplements and have not been instructed by any dietitian on recommendations. He continues to lose weight. He is here today to get established with a nutritional tube feeding plan. ECOG PERFORMANCE STATUS: 1- Restricted in physically strenuous activity. Carries out light duty. Social History Tobacco Use Smoking status: Former Packs/day: 2.00 Years: 46.00 Additional pack years: 0.00 Total pack years: 92.00 Types: Cigarettes Quit date: 09/19/2008 Years since quittin.7 Smokeless tobacco: Never Tobacco comments: Quit Vaping Use Vaping Use: Never used Substance Use Topics Alcohol use: No Drug use: No FAMILY HISTORY Problem Relation Age of Onset Cataract Mother other (Dementia) Mother Coronary Artery Disease Father Heart Father Cataract Father Glaucoma Father Detached Retina No Family History Macular Degen No Family History Blindness No Family History Amblyopia No Family History Strabismus No Family History PAST MEDICAL HISTORY Diagnosis Date Epiretinal membrane (ERM) of left eye Erythrocytosis 09/15/2014 Hyperlipemia 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) 12/02/2008 Nausea with vomiting PCO (posterior capsular opacification), left Pseudophakia, both eyes Secondary and unspecified malignant neoplasm of lymph nodes of head, face, 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 HEAD (Incl. face): Normocephalic; Atraumatic. EYES: Pupils are reactive. No scleral icterus. HEENT: No oral exudates. NECK: Evidence of neck surgery. HEMATOLOGY/LYMPHATIC: No petechiae or purpura. RESPIRATORY: Lungs are clear to auscultation. No wheezes heard. CARDIOVASCULAR: Regular rate and rhythm. 2 + radial pulse. ABDOMEN: Non-tender, soft, positive bowel sounds. Clamped PEG tube present MUSCULOSKELETAL: No tenderness or swelling, normal range of motion without obvious weakness. EXTREMITIES: No cyanosis, clubbing INTEGUMENTARY: No rashes or masses. NEURO: No sensory or motor deficits, normal cerebellar function, normal gait. PSYCHIATRIC: Pleasant affect. No signs of agitation. LABS: Latest Ref Rng 06/04/2023 WBC 3.70 - 11.00 k/uL 13.00 (H) RBC 4.20 - 6.00 m/uL 4.81 Hemoglobin 13.0 - 17.0 g/dL 14.7 Hematocrit 39.0 - 51.0 % 44.0 MCV 80.0 - 100.0 fL 91.5 MCH 26.0 - 34.0 pg 30.6 MCHC 30.5 - 36.0 g/dL 33.4 RDW-CV 11.5 - 15.0 % 15.2 (H) Platelet Count 150 - 400 k/uL 221 MPV 9.0 - 12.7 fL 10.5 Neut% % 90.9 Abs Neut (ANC) 1.45 - 7.50 k/uL 11.81 (H) Lymph% % 3.3 Abs Lymph 1.00 - 4.00 k/uL 0.43 (L) Gaston% % 4.8 Abs Gaston <0.87 k/uL 0.63 Eosin% % 0.0 Abs Eosin <0.46 k/uL <0.03 Baso% % 0.3 Abs Baso <0.11 k/uL 0.04 Immature Gran % % 0.7 IMMATURE GRANS (ABS) <0.10 k/uL 0.09 NRBC /100 WBC 0.0 Absolute nRBC <0.01 k/uL <0.01 DTYPE Auto Protein, Total 6.3 - 8.0 g/dL 6.5 Albumin 3.9 - 4.9 g/dL 3.6 (L) Calcium 8.5 - 10.2 mg/dL 9.3 Bilirubin, Total 0.2 - 1.3 mg/dL 0.6 Alkaline Phosphatase 38 - 113 U/L 84 AST 14 - 40 U/L 16 ALT 10 - 54 U/L 18 Glucose 74 - 99 mg/dL 138 (H) BUN 9 - 24 mg/dL 34 (H) Creatinine 0.73 - 1.22 mg/dL 0.73 Sodium 136 - 144 mmol/L 137 Potassium 3.7 - 5.1 mmol/L 4.4 Chloride 97 - 105 mmol/L 95 (L) CO2 22 - 30 mmol/L 34 (H) Anion Gap 9 - 18 mmol/L 8 (L) eGFR >=60 mL/min/1.73m 97 Phosphorus 2.7 - 4.8 mg/dL 3.4 Magnesium 1.7 - 2.3 mg/dL 2.1 Legend: (H) High (L) Low RADIOLOGY: MRI ABDOMEN WITH AND WITHOUT CONTRAST -Exam End: 03/12/23 9:59 AM FINDINGS: There are multiple bilateral renal cysts. Multiple lesions are too small to definitively characterize, but there are no overtly suspicious renal lesions. The largest in the lateral left kidney appears simple and measures 2.7 x 2.7 cm on series 8 image 28. Several lesions demonstrate precontrast T1 hyperintensity without definite suspicious nodular enhancement on postcontrast images. Some lesions demonstrate probable thin internal septations without overt focal thickening. The liver demonstrates no definite evidence of significant steatosis or suspicious focal parenchymal lesions. Gallbladder is mildly distended and otherwise unremarkable. The spleen appears normal in size. The adrenal glands are unremarkable in appearance. There is no evidence of biliary or pancreatic ductal dilatation. Pancreas appears mildly atrophic and fatty replaced without a definite discrete or suspicious enhancing nodule appreciable. There is no evidence of bulky abdominal adenopathy. There is prominent atherosclerosis of the abdominal aorta and there is aneurysmal dilatation of the infrarenal abdominal aorta measuring up to 3.3 cm for example on series 5 image 18. This is essentially new, as there was previously only minimal abdominal aortic ectasia measuring 2.3 cm. IMPRESSION: 1. Multiple bilateral renal cysts, predominantly Bosniak 1 and Bosniak 2. Some lesions are too small to fully characterize, but there are no overtly suspicious renal lesions. 2. No suspicious focal liver lesions. 3. Aneurysmal dilatation of the abdominal aorta measuring 3.3 cm, enlarging by 10 mm since 2014. Recommend continued imaging follow-up for this. EXAMINATION: CT PE STUDY, 03/03/2023, 9:54 AM EST. IMPRESSION: 1. I do not see any evidence of pulmonary embolism. There is believed to be pulmonary hypertension given prominently dilated right and left main pulmonary arteries. 2. There is believed to be reactive lio hypertrophy in the hilar and infracarinal regions. 3. The lung chen to me suggest centrilobular emphysema. There is diffuse peribronchial thickening and diffuse mild interstitial accentuation. 4. In the right lower lobe posteriorly there is subpleural airspace consolidation in a curvilinear fashion. There is also infiltrative change in the right paravertebral region in the lower lobe. There is some minimal airspace infiltrate associated with the major fissure on the right in the right upper lobe. There are several nodular irregular subcentimeter densities also seen in the right lung, both in the right lower lobe and right middle lobe. In the left lung I see some patchy consolidation and pneumonic type markings in the lingula near the diaphragm. The remaining left lung is fairly well aerated. Overall the findings to me are suggestive of developing pneumonia predominately centered in the right lower lobe with associated significant peribronchial thickening and reactive lio changes. There are some patchy areas of most likely early airspace infiltrate rather than pulmonary nodularity. There is also, especially in the lung bases, diffuse interstitial thickening. 5. Both kidneys appear to have cystic changes incidentally. CT NECK SOFT TISSUE W IVCON-DATE OF EXAM: Feb 24 2023 1:44PM RESULT: Post-treatment changes: Presumed posttreatment/postradiation changes in the neck including skin thickening, subcutaneous fat stranding, platysmal muscle thickening, and severe atrophy of the bilateral submandibular glands. Nonspecific fat stranding the bilateral parapharyngeal and carotid spaces also likely representing posterior/postradiation change. No abnormal enhancing soft tissue in the base of the tongue or elsewhere in the neck to suggest residual/recurrent neoplasm. Lymph nodes: No cervical lymphadenopathy by size, number or morphologic criteria. Small nonspecific lymph nodes are scattered throughout the neck. Aerodigestive tract: The oral cavity is partially obscured by artifact from dental amalgam. The nasal cavities, naso-oropharynx, pharyngeal mucosal space, laryngeal structures and infraglottic trachea are within normal limits. Major salivary glands: The bilateral submandibular glands appears severely atrophic, likely postradiation changes detailed above. Mild atrophy of the bilateral parotid glands, RIGHT worse than LEFT. Thyroid gland: Within normal limits. Carotid space: Patent bilateral extracranial carotid and jugular systems. Calcified and noncalcified atherosclerotic plaque resulting in moderate narrowing of the proximal RIGHT cervical ICA and mild narrowing of the proximal LEFT cervical ICA, although the study is not optimized for carotid artery assessment. Intracranial contents: Imaged portions within normal limits. Mild generalized volume loss with commensurate ventriculomegaly. Scattered hypoattenuation in the supratentorial white matter is nonspecific but likely representing sequela of chronic microvascular ischemic change. Paranasal sinuses, middle ears, mastoids: Polypoid mucosal thickening versus mucous retention cysts in the inferior RIGHT maxillary sinus. The remaining visualized paranasal sinuses are clear. Mastoid air cells and middle ear cavities appear clear. Orbits: Bilateral pseudophakia. Otherwise, orbits appear unremarkable Bones: No suspicious osseous lesions in the imaged calvarium, skull base and spine. Normal cervicothoracic alignment. Multilevel degenerative disc disease with partially calcified posterior longitudinal ligament resulting in up to level mild spinal canal narrowing at C3-C7. Multilevel mild neural foraminal narrowing. Temporomandibular joints are maintained. Lungs: Imaged lungs are clear. Please see concurrent CT chest for complete evaluation of the intrathoracic contents. IMPRESSION: Primary: 1. Expected post-treatment changes in the neck without evidence of recurrent disease in the primary site. ? Neck: 1. No cervical lymphadenopathy CHEST CT WITH CONTRAST -DATE OF EXAM: Feb 18 2023 2:05PM RESULT: Limitations: None. Lines, tubes, and devices: None. Lung parenchyma and airways: The newly noted 8 mm solid nodule seen in the right lower lobe on 02/05/2023 has slightly decreased in size to 6 mm, measured on series 4 image 155. This is thus favored to be infectious or inflammatory etiology. The newly noted discrete 4 to 5 mm clustered right lower lobe nodules seen on 02/08/2023 are unchanged, measured on series 4 image 171. In addition to the above there is relatively extensive branching emwj-uk-vuu-type micronodularity involving the inferior aspect of the right lower lobe, the right middle lobe and to a lesser extent the left lower lobe, this is similar to perhaps mildly progressed from 02/05/2023 and indicate an infectious or inflammatory bronchiolitis. Mild upper lung predominant emphysema is present. Adherent mucoid debris is seen within the trachea for example on series 4 image 70 and within right lower lobe bronchi for example on series 4 image 122. Mild bronchial wall thickening is noted involving segmental and subsegmental bronchi in the right lower lobe, likely indicating bronchitis. Pleural space: No pleural effusion. No pleural thickening. Lower neck, lymph nodes, and mediastinum: The imaged thyroid gland is normal. No lymphadenopathy in the supraclavicular, axillary, mediastinal, or hilar regions. Heart, pericardium, and thoracic vessels: The thoracic aorta and main pulmonary artery are normal in caliber. The cardiac chambers are normal in size. No coronary artery atherosclerotic calcifications are noted, although the study is not optimized for coronary assessment. No pericardial effusion or thickening. Bones and soft tissues: Mild to moderate multilevel thoracic spine degenerative disc disease noted. No destructive skeletal lesion is present. Upper abdomen: Please see the separate report for the concurrently obtained CT of the abdomen/pelvis. IMPRESSION: 1. Extensive branching pwtm-nq-kys-type micronodules are present in the right lower lobe and right middle lobe, and to a lesser extent in the left lower lobe. This is stable to slightly progressed from the CT performed on 02/05/2023, and compatible with an infectious or inflammatory bronchiolitis. 2. The newly noted 8mm right lower lobe nodule seen on 02/05/2023 has slightly decreased in size to 6 mm on today's study, and is thus presumably related to the infectious/inflammatory bronchiolitis. The newly noted cluster of 4 to 5 mm nodules seen in the right lower lobe on 02/05/2023 is unchanged on today's examination and is likely infectious or inflammatory in etiology as well. A follow-up chest CT is recommended following treatment for infection, to confirm resolution. 3. Additional incidental findings are detailed above. CT ABDOMEN AND PELVIS WITH IV CONTRAST -DATE OF EXAM: Feb 18 2023 2:05PM RESULT: Liver: Unremarkable. No mass. Biliary: No bile duct dilation. Unremarkable gallbladder. Spleen: No mass. No splenomegaly. Pancreas: No mass or duct dilation. Adrenals: No mass. Kidneys: Incidental bilateral renal cysts are noted. In addition to the cyst there are several subcentimeter low-attenuation foci in both kidneys which are too small to characterize, these are favored to represent cysts as well. There is a 9 mm intermediate density lesion at the anterior upper pole of the left kidney that is indeterminate, this is seen on series 3 image 41. There is a 9 mm intermediate density lesion at the posterior aspect of the interpolar region of the right kidney on series 3 image 57 that is indeterminate. These could represent hemorrhagic cysts or small solid renal masses. No renal collecting system dilation. GI tract: No dilation or wall thickening. Colonic diverticulosis is noted, there are no CT findings of diverticulitis. Lymph nodes: No abdominal or pelvic lymphadenopathy. Mesentery/Peritoneum: No ascites or mass. Retroperitoneum: No mass. Vasculature: - Abdominal aorta and iliac arteries: 3.2 cm infrarenal abdominal aortic aneurysm present. Moderate calcified atherosclerotic disease noted. - Celiac and SMA: Patent without stenosis. - Portal venous system (SMV, splenic vein, portal vein and branches): Patent. - Hepatic veins: Patent. Pelvis: Mild to moderate prostate enlargement. Small fat-containing left inguinal hernia. No mass, fluid collection or ascites. Bones/Soft Tissues: No destructive skeletal lesion is present. Minimal multilevel lumbar spine degenerative disc disease noted. Lower thorax: Please see the separate report for the concurrently obtained CT of the chest. IMPRESSION: 1. No acute finding in the abdomen or pelvis. 2. Indeterminate 9 mm lesions at the upper pole of the left kidney and interpolar region of the right kidney respectively, the differential diagnosis would include benign hemorrhagic cyst, or small solid renal masses. No previous contrast-enhanced CT imaging is available for comparison to assess stability. Thus further evaluation with renal protocol MRI would be recommended. 3. 3.2 cm infrarenal abdominal aortic aneurysm. 4. Additional incidental findings are detailed above including colonic diverticulosis, mild to moderate prostate enlargement and a small fat-containing left inguinal hernia. ASSESSMENT / PLAN: 1. 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 He follows with Dr. Holder. 2. Weight loss. Found to have pharyngoesophageal dysphagia. He has been referred for a PEG and this was placed by Dr. Payan. Patient was seen by speech therapy on 03/04/2023. No safe diet was recommended therefore PEG tube was placed on 04/07/2023 and he no longer takes any food or fluid by mouth. He is following with our dietitian. She is arranging and will monitor the recommendations for tube feeding. We will follow with labs. 3. Lung cancer screening/Nodule. He quit smoking in 2008 but prior to that had a 3 ppd for [address] scan performed on 05/20 for possible pulmonary embolism shows no change in the right lower lung bronchiectasis with mild to moderate mucous plugging. 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 Normalized today. No need for phlebotomy today. 5. Right Kidney.had MRI dated March 12, 2023. This showed multiple bilateral renal cysts. Predominant Bosniak 1 and Bosniak 2. Some of these lesions are too small to fully characterize but there are no overtly suspicious renal masses. He will return next month for repeat scans and a follow-up visit with Dr. Brandon. All documentation from previous visit of 03/21/2023 was copied and pasted, documentation has been reviewed and edited as necessary for today's visit. Linda Jean Baptiste CNP documented in this encounter [facility] 06-04-2023 Evaluation + Plan note Associated Problem(s): Multiple lung nodules on CT - Surveillance Cts, imaging as per Onc Dr. Brandon [facility]. - 02/18/23 CT Chest w/ c [facility] IMPRESSION: 1. Extensive branching rvux-qg-goo-type micronodules are present in the right lower lobe and right middle lobe, and to a lesser extent in the left lower lobe. This is stable to slightly progressed from the CT performed on 02/05/2023, and compatible with an infectious or inflammatory bronchiolitis. 2. The newly noted 8mm right lower lobe nodule seen on 02/05/2023 has slightly decreased in size to 6 mm on today's study, and is thus presumably related to the infectious/inflammatory bronchiolitis. The newly noted cluster of 4 to 5 mm nodules seen in the right lower lobe on 02/05/2023 is unchanged on today's examination and is likely infectious or inflammatory in etiology as well. A follow-up chest CT is recommended following treatment for infection, to confirm resolution. 3. Additional incidental findings are detailed above. - 03/21/[address] [facility] [address] Brandon: ASSESSMENT / PLAN: 1. 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 He is due to see Dr. Holder. 2. Weight loss. Found to have pharyngoesophageal dysphagia. He has been referred for a PEG. He saw Dr. Payan and they decided to defer on the peg. He reports that his appetite has improved. He is aware the possible CT findings could represent aspiration. Patient was seen by speech therapy on 03/04/2023. No safe diet was recommended the patient and the understand risks of continued feeding. Will continue to follow. 3. Lung cancer screening/Nodule. He quit smoking in 2008 but prior to that had a 3 ppd for [address] scans performed while hospitalized in February. He again was found to have a trach in the right lower lobe. Overall, the lung was suspected to represent pneumonia. I will repeat CAT scans in 3 months to ensure clearing. 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 5. Right Kidney.had MRI dated March 12, 2023. This showed multiple bilateral renal cysts. Predominant Bosniak 1 and Bosniak 2. Some of these lesions are too Femara to fully characterize but there are no overtly suspicious renal masses. [facility] 06-04-2023 Miscellaneous Notes Associated Problem(s): Multiple lung nodules on CT - Surveillance Cts, imaging as per Onc Dr. Brandon [facility]. - 02/18/23 CT Chest w/ c [facility] IMPRESSION: 1. Extensive branching hics-is-zcw-type micronodules are present in the right lower lobe and right middle lobe, and to a lesser extent in the left lower lobe. This is stable to slightly progressed from the CT performed on 02/05/2023, and compatible with an infectious or inflammatory bronchiolitis. 2. The newly noted 8mm right lower lobe nodule seen on 02/05/2023 has slightly decreased in size to 6 mm on today's study, and is thus presumably related to the infectious/inflammatory bronchiolitis. The newly noted cluster of 4 to 5 mm nodules seen in the right lower lobe on 02/05/2023 is unchanged on today's examination and is likely infectious or inflammatory in etiology as well. A follow-up chest CT is recommended following treatment for infection, to confirm resolution. 3. Additional incidental findings are detailed above. - 03/21/[address] [facility] [address] Brandon: ASSESSMENT / PLAN: 1. 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 He is due to see Dr. Holder. 2. Weight loss. Found to have pharyngoesophageal dysphagia. He has been referred for a PEG. He saw Dr. Payan and they decided to defer on the peg. He reports that his appetite has improved. He is aware the possible CT findings could represent aspiration. Patient was seen by speech therapy on 03/04/2023. No safe diet was recommended the patient and the understand risks of continued feeding. Will continue to follow. 3. Lung cancer screening/Nodule. He quit smoking in 2008 but prior to that had a 3 ppd for [address] scans performed while hospitalized in February. He again was found to have a trach in the right lower lobe. Overall, the lung was suspected to represent pneumonia. I will repeat CAT scans in 3 months to ensure clearing. 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 5. Right Kidney.had MRI dated March 12, 2023. This showed multiple bilateral renal cysts. Predominant Bosniak 1 and Bosniak 2. Some of these lesions are too Femara to fully characterize but there are no overtly suspicious renal masses. Associated Problem(s): Secondary pulmonary arterial hypertension (Deleted) May develop secondary Pulmonary Hypertension related to cardiopulmonary disease (WHO Grp 3, 2). - monitor Echocardiogram as indicated - consider RHC Right heart catheterization, as indicated - optimize underlying conditions - consider sleep study, as indicated Associated Problem(s): Malignant neoplasm of base of tongue - hx of Squamous cell CA Tongue, s/p PEG; hx of Dysphagia and Aspn PNA. - ff'd by [facility] Onc Dr. Brandon; ENT Dr. Holder - 03/21/[address] [facility] [address] Brandon: ASSESSMENT / PLAN: 1. 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 He is due to see Dr. Holder. 2. Weight loss. Found to have pharyngoesophageal dysphagia. He has been referred for a PEG. He saw Dr. Payan and they decided to defer on the peg. He reports that his appetite has improved. He is aware the possible CT findings could represent aspiration. Patient was seen by speech therapy on 03/04/2023. No safe diet was recommended the patient and the understand risks of continued feeding. Will continue to follow. 3. Lung cancer screening/Nodule. He quit smoking in 2008 but prior to that had a 3 ppd for [address] scans performed while hospitalized in February. He again was found to have a trach in the right lower lobe. Overall, the lung was suspected to represent pneumonia. I will repeat CAT scans in 3 months to ensure clearing. 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 5. Right Kidney.had MRI dated March 12, 2023. This showed multiple bilateral renal cysts. Predominant Bosniak 1 and Bosniak 2. Some of these lesions are too Femara to fully characterize but there are no overtly suspicious renal masses. Associated Problem(s): Interstitial lung disease Chest radiograph w/ some increased lung markings; possible element of Interstitial lung disease ILD - CT Chest - monitor chest imaging, PFT, 6mwt prn, as indic - further evaluation, management pending results, clinical course. Associated Problem(s): Centrilobular emphysema Mild ULP; See COPD txs Associated Problem(s): COPD (chronic obstructive pulmonary disease) - admitted [facility] 05/24/0707/26/2023 Discharge summary reviewed: PNA, trace hemoptysis - emp Levaquin, Prednisone. Hypoxia - O2 weaned off. AECOPD, HTN, BPH, GERD, Severe PCM malnutrion, s/p PEG, HLD - fmr Smoker; hx of COPD, as per records; was on Albuterol nebs prev. - Consider LAMA/LABA or try triple tx Trelegy, Breztri, or other inhaler regimen, as indic; if feasible; albuterol as needed; use spacer - consider Daliresp subseq as indic., as tolerated; if feasible - may also use duonebs; budesonide+formoterol nebs alternatively - patient benefits from nebulizer treatments - Inhaler technique teaching done/reviewed prev.; rinse mouth after inhaler use, especially steroid inhalers - Smoking cessation reinforced: quit - advised OTC Calcium+Vit D, lifestyle recs for osteoporosis prevention, especially if on frequent or long-term systemic steroids (osteoporosis screening/management as per PCP prn, as indic) - monitor PFT prn, as indicated - monitor imaging prn, Chest radiograph as needed (CT Chest as indicated) - Pulmonary rehab program, if feasible; rec to stay active - Influenza, pneumococcal, COVID19, pulmonary vaccines recommended, updated documented in this encounter [facility] 06-04-2023 Evaluation + Plan note Associated Problem(s): Secondary pulmonary arterial hypertension (Deleted) May develop secondary Pulmonary Hypertension related to cardiopulmonary disease (WHO Grp 3, 2). - monitor Echocardiogram as indicated - consider RHC Right heart catheterization, as indicated - optimize underlying conditions - consider sleep study, as indicated [facility] 06-04-2023 Evaluation + Plan note Associated Problem(s): Malignant neoplasm of base of tongue - hx of Squamous cell CA Tongue, s/p PEG; hx of Dysphagia and Aspn PNA. - ff'd by [facility] Onc Dr. Brandon; ENT Dr. Holder - 03/21/[address] [facility] [address] Brandon: ASSESSMENT / PLAN: 1. 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 He is due to see Dr. Holder. 2. Weight loss. Found to have pharyngoesophageal dysphagia. He has been referred for a PEG. He saw Dr. Payan and they decided to defer on the peg. He reports that his appetite has improved. He is aware the possible CT findings could represent aspiration. Patient was seen by speech therapy on 03/04/2023. No safe diet was recommended the patient and the understand risks of continued feeding. Will continue to follow. 3. Lung cancer screening/Nodule. He quit smoking in 2008 but prior to that had a 3 ppd for [address] scans performed while hospitalized in February. He again was found to have a trach in the right lower lobe. Overall, the lung was suspected to represent pneumonia. I will repeat CAT scans in 3 months to ensure clearing. 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 5. Right Kidney.had MRI dated March 12, 2023. This showed multiple bilateral renal cysts. Predominant Bosniak 1 and Bosniak 2. Some of these lesions are too Femara to fully characterize but there are no overtly suspicious renal masses. [facility] 06-04-2023 Evaluation + Plan note Associated Problem(s): Interstitial lung disease Chest radiograph w/ some increased lung markings; possible element of Interstitial lung disease ILD - CT Chest - monitor chest imaging, PFT, 6mwt prn, as indic - further evaluation, management pending results, clinical course. [facility] 06-04-2023 Evaluation + Plan note Associated Problem(s): Centrilobular emphysema Mild ULP; See COPD txs [facility] 06-04-2023 Evaluation + Plan note Associated Problem(s): COPD (chronic obstructive pulmonary disease) - admitted [facility] 05/24/0707/26/2023 Discharge summary reviewed: PNA, trace hemoptysis - emp Levaquin, Prednisone. Hypoxia - O2 weaned off. AECOPD, HTN, BPH, GERD, Severe PCM malnutrion, s/p PEG, HLD - fmr Smoker; hx of COPD, as per records; was on Albuterol nebs prev. - Consider LAMA/LABA or try triple tx Trelegy, Breztri, or other inhaler regimen, as indic; if feasible; albuterol as needed; use spacer - consider Daliresp subseq as indic., as tolerated; if feasible - may also use duonebs; budesonide+formoterol nebs alternatively - patient benefits from nebulizer treatments - Inhaler technique teaching done/reviewed prev.; rinse mouth after inhaler use, especially steroid inhalers - Smoking cessation reinforced: quit - advised OTC Calcium+Vit D, lifestyle recs for osteoporosis prevention, especially if on frequent or long-term systemic steroids (osteoporosis screening/management as per PCP prn, as indic) - monitor PFT prn, as indicated - monitor imaging prn, Chest radiograph as needed (CT Chest as indicated) - Pulmonary rehab program, if feasible; rec to stay active - Influenza, pneumococcal, COVID19, pulmonary vaccines recommended, updated [employer] 06-04-2023 History of Present illness Narrative Currently smoking or Hx of smoking - NO, from 12 years old to 2008 Oxygen use __ NO __ patient is benefiting from oxygen use. Do you have a CPAP- NO DME company- NA Most recent CT- 05/24/23 Most recent PFT- NA Symptoms include: Increase in shortness of breath- NO Dyspnea upon exertion- NO Dyspnea at rest- NO Cough- productive- YES Different colors brown and blood Have you had the Covid 19 vaccine- YES Do you need a Medication refill? NO Pt presents for review of Referral for Pneumonia and COPD Maintenance medication- NO Rescue medication- Albuterol Nebulizer- Albuterol New patient presents for Pneumonia and COPD. Pt reports a hx of throat cancer Patient is a 72 y.o. male who came to be evaluated and managed for COPD, FR Hypoxia, Pneumonia hosp 05/2023 Chronic Obstructive Pulmonary Disease, Respiratoy Failure, Pneumonia, and Establish Care . ICD-10-CM 1. Chronic obstructive pulmonary disease, unspecified COPD type J44.9 EXERCISE-6 MIN. WALK PFT COMPLETE ALPHA 1 ANTITRYPSIN CBC, EDIF, PLATELET IMMUNOGLOBULIN IGE ALLERGEN PROFILE, MOLD MINI-PANEL ALLERGEN PROFILE Albuterol 108 (90 Base) MCG/ACT Aero Soln inhaler SPACER FOR INHALER PRESCRIPTION 2. Centrilobular emphysema J43.2 EXERCISE-6 MIN. WALK PFT COMPLETE 3. Interstitial lung disease J84.9 EXERCISE-6 MIN. WALK PFT COMPLETE 4. Malignant neoplasm of base of tongue C01 5. Multiple lung nodules on CT R91.8 6. Reactive airway disease without complication, unspecified asthma severity, unspecified whether persistent J45.909 EXERCISE-6 MIN. WALK PFT COMPLETE IMMUNOGLOBULIN IGE ALLERGEN PROFILE, MOLD MINI-PANEL ALLERGEN PROFILE Problem List Items Addressed This Visit Centrilobular emphysema Mild ULP; See COPD txs Relevant Orders EXERCISE-6 MIN. WALK PFT COMPLETE COPD (chronic obstructive pulmonary disease) - Primary - admitted [facility] 05/24/0707/26/2023 Discharge summary reviewed: PNA, trace hemoptysis - emp Levaquin, Prednisone. Hypoxia - O2 weaned off. AECOPD, HTN, BPH, GERD, Severe PCM malnutrion, s/p PEG, HLD - fmr Smoker; hx of COPD, as per records; was on Albuterol nebs prev. - Consider LAMA/LABA or try triple tx Trelegy, Breztri, or other inhaler regimen, as indic; if feasible; albuterol as needed; use spacer - consider Daliresp subseq as indic., as tolerated; if feasible - may also use duonebs; budesonide+formoterol nebs alternatively - patient benefits from nebulizer treatments - Inhaler technique teaching done/reviewed prev.; rinse mouth after inhaler use, especially steroid inhalers - Smoking cessation reinforced: quit - advised OTC Calcium+Vit D, lifestyle recs for osteoporosis prevention, especially if on frequent or long-term systemic steroids (osteoporosis screening/management as per PCP prn, as indic) - monitor PFT prn, as indicated - monitor imaging prn, Chest radiograph as needed (CT Chest as indicated) - Pulmonary rehab program, if feasible; rec to stay active - Influenza, pneumococcal, COVID19, pulmonary vaccines recommended, updated Relevant Medications Albuterol 108 (90 Base) MCG/ACT Aero Soln inhaler SPACER FOR INHALER PRESCRIPTION Other Relevant Orders EXERCISE-6 MIN. WALK PFT COMPLETE EXERCISE-6 MIN. WALK PFT COMPLETE ALPHA 1 ANTITRYPSIN CBC, EDIF, PLATELET IMMUNOGLOBULIN IGE ALLERGEN PROFILE, MOLD MINI-PANEL ALLERGEN PROFILE Interstitial lung disease Chest radiograph w/ some increased lung markings; possible element of Interstitial lung disease ILD - CT Chest - monitor chest imaging, PFT, 6mwt prn, as indic - further evaluation, management pending results, clinical course. Relevant Orders EXERCISE-6 MIN. WALK PFT COMPLETE Malignant neoplasm of base of tongue - hx of Squamous cell CA Tongue, s/p PEG; hx of Dysphagia and Aspn PNA. - ff'd by [facility] Onc Dr. Brandon; ENT Dr. Holder - 03/21/[address] [facility] [address] Brandon: ASSESSMENT / PLAN: 1. 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 He is due to see Dr. Holder. 2. Weight loss. Found to have pharyngoesophageal dysphagia. He has been referred for a PEG. He saw Dr. Payan and they decided to defer on the peg. He reports that his appetite has improved. He is aware the possible CT findings could represent aspiration. Patient was seen by speech therapy on 03/04/2023. No safe diet was recommended the patient and the understand risks of continued feeding. Will continue to follow. 3. Lung cancer screening/Nodule. He quit smoking in 2008 but prior to that had a 3 ppd for [address] scans performed while hospitalized in February. He again was found to have a trach in the right lower lobe. Overall, the lung was suspected to represent pneumonia. I will repeat CAT scans in 3 months to ensure clearing. 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 5. Right Kidney.had MRI dated March 12, 2023. This showed multiple bilateral renal cysts. Predominant Bosniak 1 and Bosniak 2. Some of these lesions are too Femara to fully characterize but there are no overtly suspicious renal masses. Multiple lung nodules on CT - Surveillance Cts, imaging as per Onc Dr. Brandon [facility]. - 02/18/23 CT Chest w/ c [facility] IMPRESSION: 1. Extensive branching fpik-ze-bzd-type micronodules are present in the right lower lobe and right middle lobe, and to a lesser extent in the left lower lobe. This is stable to slightly progressed from the CT performed on 02/05/2023, and compatible with an infectious or inflammatory bronchiolitis. 2. The newly noted 8mm right lower lobe nodule seen on 02/05/2023 has slightly decreased in size to 6 mm on today's study, and is thus presumably related to the infectious/inflammatory bronchiolitis. The newly noted cluster of 4 to 5 mm nodules seen in the right lower lobe on 02/05/2023 is unchanged on today's examination and is likely infectious or inflammatory in etiology as well. A follow-up chest CT is recommended following treatment for infection, to confirm resolution. 3. Additional incidental findings are detailed above. - 03/21/[address] [facility] [address] Brandon: ASSESSMENT / PLAN: 1. 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 He is due to see Dr. Holder. 2. Weight loss. Found to have pharyngoesophageal dysphagia. He has been referred for a PEG. He saw Dr. Payan and they decided to defer on the peg. He reports that his appetite has improved. He is aware the possible CT findings could represent aspiration. Patient was seen by speech therapy on 03/04/2023. No safe diet was recommended the patient and the understand risks of continued feeding. Will continue to follow. 3. Lung cancer screening/Nodule. He quit smoking in 2008 but prior to that had a 3 ppd for [address] scans performed while hospitalized in February. He again was found to have a trach in the right lower lobe. Overall, the lung was suspected to represent pneumonia. I will repeat CAT scans in 3 months to ensure clearing. 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 5. Right Kidney.had MRI dated March 12, 2023. This showed multiple bilateral renal cysts. Predominant Bosniak 1 and Bosniak 2. Some of these lesions are too Femara to fully characterize but there are no overtly suspicious renal masses. Other Visit Diagnoses Reactive airway disease without complication, unspecified asthma severity, unspecified whether persistent Relevant Orders EXERCISE-6 MIN. WALK PFT COMPLETE IMMUNOGLOBULIN IGE ALLERGEN PROFILE, MOLD MINI-PANEL ALLERGEN PROFILE [facility] 06/04/23 - admitted [facility] 05/24/0707/26/2023 Discharge summary reviewed: PNA, trace hemoptysis - emp Levaquin, Prednisone. Hypoxia - O2 weaned off. AECOPD, HTN, BPH, GERD, Severe PCM malnutrion, s/p PEG, HLD - fmr Smoker; hx of COPD, as per records; was on Albuterol nebs prev. - hx of Squamous cell CA Tongue, s/p PEG; hx of Dysphagia and Aspn PNA. - 03/21/[address] [facility] [address] Brandon: ASSESSMENT / PLAN: 1. 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 He is due to see Dr. Holder. 2. Weight loss. Found to have pharyngoesophageal dysphagia. He has been referred for a PEG. He saw Dr. Payan and they decided to defer on the peg. He reports that his appetite has improved. He is aware the possible CT findings could represent aspiration. Patient was seen by speech therapy on 03/04/2023. No safe diet was recommended the patient and the understand risks of continued feeding. Will continue to follow. 3. Lung cancer screening/Nodule. He quit smoking in 2008 but prior to that had a 3 ppd for [address] scans performed while hospitalized in February. He again was found to have a trach in the right lower lobe. Overall, the lung was suspected to represent pneumonia. I will repeat CAT scans in 3 months to ensure clearing. 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 5. Right Kidney.had MRI dated March 12, 2023. This showed multiple bilateral renal cysts. Predominant Bosniak 1 and Bosniak 2. Some of these lesions are too Femara to fully characterize but there are no overtly suspicious renal masses. Current Outpatient Medications: Albuterol (2.5 MG/3ML) 0.083% inhalation solution, Take 3 mL by nebulization every 6 hours as needed for Shortness of Breath., Disp: 360 mL, Rfl: 5 pantoprazole Sodium 40 MG Pack, Take 1 packet by mouth every morning before breakfast. am, Disp: , Rfl: pilocarpine 2 % Solution, 1 drop 3 times daily as needed for Other (PO for secretions)., Disp: , Rfl: PILOCARPINE HCL PO, Take 1 tablet by mouth daily., Disp: , Rfl: predniSONE 20 MG tablet, Take 2 tablets by mouth 2 times daily for 3 days, THEN 1 tablet 2 times daily for 4 days, THEN 0.5 tablets 2 times daily for 4 days., Disp: 24 tablet, Rfl: 0 Rosuvastatin (Crestor) 5 MG tablet, Take 1 tablet by mouth daily., Disp: 14 tablet, Rfl: 0 sulindac 150 MG tablet, Take 1 tablet by mouth 2 times daily., Disp: 180 tablet, Rfl: 1 Testosterone 25 MG/2.5GM (1%) Gel gel, Place 2.5 g on skin daily., Disp: 225 g, Rfl: 1 Albuterol 108 (90 Base) MCG/ACT Aero Soln inhaler, Inhale 2 puffs every 4 hours as needed for Shortness of Breath, Respiratory Distress or Wheezing., Disp: 18 g, Rfl: 3 dutasteride (Avodart) 0.5 MG capsule, Take 1 capsule by mouth daily. (Patient not taking: Reported on 06/04/2023), Disp: 14 capsule, Rfl: 0 SPACER FOR INHALER PRESCRIPTION, Use with inhaler as directed, Disp: 1 Each, Rfl: 0 traMADol 50 MG tablet, Take 1 tablet by mouth 3 times daily as needed., Disp: 21 tablet, Rfl: 0 Valsartan 160 MG tablet, Take 1 tablet by mouth daily. (Patient not taking: Reported on 06/02/2023), Disp: 14 tablet, Rfl: 0 Past Medical History: Diagnosis Date Abnormal glucose Bilateral leg edema BPH without urinary obstruction Chronic kidney disease (CKD), stage I Degenerative joint disease Enthesopathy Essential hypertension, benign Fatigue Former smoker 2 PPD x46 years, quite 09/19/2008 GERD (gastroesophageal reflux disease) Hepatic steatosis Hyperlipidemia Impotence of organic origin Insomnia Obesity Testicular hypofunction Tongue cancer Stage IIB, T2, N1, 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 Chemo/RT with Cisplatin and RT and Ethyol. RT completed 02/28/09. Past Surgical History: Procedure Laterality Date NECK SURGERY 2008 for cancer INGUINAL HERNIA REPAIR 1988 REMOVAL CATARACT (PEM) Bilateral VASECTOMY Social History Tobacco Use Smoking status: Former Types: Cigarettes Smokeless tobacco: Never Substance Use Topics Alcohol use: No Family History Problem Relation Age of Onset No known problems Mother Heart Disease - Other Father Heart Disease - Other Brother Heart Disease - Other Other Coronary Artery Disease Other No Known Allergies Review of Systems Currently smoking or Hx of smoking - NO, from 12 years old to 2009 Oxygen use __ NO __ patient is benefiting from oxygen use. Do you have a CPAP- NO DME company- NA Most recent CT- 05/24/23 Most recent PFT- NA Symptoms include: Increase in shortness of breath- NO Dyspnea upon exertion- NO Dyspnea at rest- NO Cough- productive- YES Different colors brown and blood Have you had the Covid 19 vaccine- YES Do you need a Medication refill? NO Pt presents for review of Referral for Pneumonia and COPD Maintenance medication- NO Rescue medication- Albuterol Nebulizer- Albuterol New patient presents for Pneumonia and COPD. Pt reports a hx of throat cancer Vitals: 06/04/23 1050 BP: 110/68 Pulse: 68 Resp: 18 SpO2: 91% Weight: 73.6 kg (162 lb 4.8 oz) Height: 1.854 m (6' 1) Vital Signs Reviewed as noted. Physical Exam Vitals and nursing note reviewed. Constitutional: General: He is not in acute distress. HENT: Head: Normocephalic and atraumatic. Right Ear: External ear normal. Left Ear: External ear normal. Nose: Nose normal. Mouth/Throat: Mouth: Mucous membranes are moist. Pharynx: Oropharynx is clear. No oropharyngeal exudate or posterior oropharyngeal erythema. Eyes: General: No scleral icterus. Neck: Vascular: No JVD. Trachea: No tracheal deviation. Cardiovascular: Rate and Rhythm: Normal rate and regular rhythm. Heart sounds: Normal heart sounds. Pulmonary: Effort: Pulmonary effort is normal. Abdominal: Comments: PEG Genitourinary: Comments: Deferred Musculoskeletal: Cervical back: Neck supple. Right lower leg: No edema. Left lower leg: No edema. Lymphadenopathy: Cervical: No cervical adenopathy. Skin: General: Skin is warm and dry. Coloration: Skin is not jaundiced. Neurological: Mental Status: He is alert and oriented to person, place, and time. Psychiatric: Mood and Affect: Mood normal. Behavior: Behavior normal. I personally reviewed selected chart notes, results, interpreted tests, imaging today before seeing the pt; reviewed and discussed w/ pt, questions answered - 05/24/23 CTPE: RLL mucus plugging; patchy infiltrates BLL; mild ULP emphysematous changes, central bronchial thickening. IMPRESSION: 1. No change in the right lower lung bronchiectasis with mild to moderate mucous plugging. 2. Mild left basilar subpleural subsegmental atelectasis. 3. Mild underlying emphysema. 4. Air-filled mildly distended proximal esophagus could be a sign of achalasia or presbyesophagus, for example. - 05/07/23 Echocardiogram Conclusion The left ventricle is normal size. There is a speckled pattern to the myocardium suggesting infiltrative disease. Mild diastolic dysfunction is present (impaired relaxation pattern). The left ventricular systolic function is normal. The left ventricular ejection fraction is within the normal range. There is normal LV segmental wall motion. LVEF is 65-70%. The right ventricle is normal size. The right ventricular systolic function is normal. Aortic valve is trileaflet. Mild aortic valve sclerosis. Mild tricuspid regurgitation. No pulmonary hypertension. - 02/18/23 CT Chest w/ c [facility] IMPRESSION: 1. Extensive branching ijat-ed-xbl-type micronodules are present in the right lower lobe and right middle lobe, and to a lesser extent in the left lower lobe. This is stable to slightly progressed from the CT performed on 02/05/2023, and compatible with an infectious or inflammatory bronchiolitis. 2. The newly noted 8mm right lower lobe nodule seen on 02/05/2023 has slightly decreased in size to 6 mm on today's study, and is thus presumably related to the infectious/inflammatory bronchiolitis. The newly noted cluster of 4 to 5 mm nodules seen in the right lower lobe on 02/05/2023 is unchanged on today's examination and is likely infectious or inflammatory in etiology as well. A follow-up chest CT is recommended following treatment for infection, to confirm resolution. 3. Additional incidental findings are detailed above. Immunization Administrations COVID-19 04/20/2020 (69 y.o.) 05/19/2020 (69 y.o.) 12/24/2020 (70 y.o.) 10/11/2022 (72 y.o.) INFLUENZA 01/13/2007 (56 y.o.) 01/26/2008 (57 y.o.) 11/17/2013 (63 y.o.) 11/17/2015 (65 y.o.) 10/23/2016 (66 y.o.) 10/30/2017 (67 y.o.) 11/16/2018 (68 y.o.) 11/04/2019 (69 y.o.) 12/01/2020 (70 y.o.) MEASLES, MUMPS, RUBELLA (MMR) 06/22/2013 (62 y.o.) Zoster 10/30/2017 (67 y.o.) 12/29/2017 (67 y.o.) Return in about 8 weeks (around 07/30/2023). FOLLOW-UP Patient was advised to call with any questions or concerns. If symptoms worsen or fail to improve patient was advised to call for follow up in our office and/or PCP, or go to the Emergency Dept. Benefits, Risks, Contraindications, and Complications of recommended treatments were explained (and to call if prescriptions are not feasible); and the patient stated understanding and agreement to proceed with plan. 06/04/2023: I spent more than 60 mins: reviewed selected chart notes, results, interpreted tests, imaging today before seeing the pt; interviewing and examining pt; reviewed and discussed w/ pt, questions answered; counselling/educating pt/family/caregiver; ordering meds/tests as appropriate; documenting clinical information in the chart. Some Elements copied from previous notes. I have updated where appropriate, and all reflect current medical decision making from today's encounter. Note: This dictation was generated using voice recognition software. Please excuse any typographical, grammatical or spelling errors that may have occurred using the system Note to patient: The Century Cures Act makes medical notes like these available to patients in the interest of transparency. However, be advised this is a medical document. It is intended as [id number] communication. It is written in medical language and may contain abbreviations or verbiage that are unfamiliar. It may appear blunt or direct. Medical documents are intended to carry relevant information, facts as evident, and the clinical opinion of the practitioner. Yobani Bojorquez MD, MPH, [facility] Pulmonary/Critical Care Medicine [facility] 06/04/2023 documented in this encounter [facility] 06-02-2023 History of Present illness Narrative Chief Complaint Patient presents with Follow-up Hospital 05/23 to 05/25 for pneumonia. Kishor says he feels much better. He is done with the Levaquin but still has a few days of Prednisone. says his lower legs and ankles were swollen a few days ago but look better today. HPI: The patient is a pleasant 72 y.o. year old male here for: Hospital follow up . Was admitted to hospital from 05/24/2023 to 05/26/2023 for aspiration pneumonia. He was sent home on Levaquin and Prednisone. He is feeling much better since being discharge from hospital. His energy level is good. He is following up with Dr Bojorquez this . states that he has been in and out of the hospital for the same thing for every few weeks for the last month. 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 Chemo/RT with Cisplatin and RT and Ethyol. RT completed 02/28/09. Social History Tobacco Use Smoking status: Former Types: Cigarettes Smokeless tobacco: Never Vaping Use Vaping status: Never Used Substance Use Topics Alcohol use: No Drug use: No Past Surgical History: Procedure Laterality Date NECK SURGERY 2008 for cancer INGUINAL HERNIA REPAIR 1988 REMOVAL CATARACT (PEM) Bilateral VASECTOMY Family History Problem Relation Age of Onset No known problems Mother Heart Disease - Other Father Heart Disease - Other Brother Heart Disease - Other Other Coronary Artery Disease Other Current Outpatient Medications Medication Sig Dispense Refill Albuterol (2.5 MG/3ML) 0.083% inhalation solution Take 3 mL by nebulization every 6 hours as needed for Shortness of Breath. 360 mL 5 pantoprazole Sodium 40 MG Pack Take 1 packet by mouth every morning before breakfast. am pilocarpine 2 % Solution 1 drop 3 times daily as needed for Other (PO for secretions). PILOCARPINE HCL PO Take 1 tablet by mouth daily. predniSONE 20 MG tablet Take 2 tablets by mouth 2 times daily for 3 days, THEN 1 tablet 2 times daily for 4 days, THEN 0.5 tablets 2 times daily for 4 days. 24 tablet 0 Rosuvastatin (Crestor) 5 MG tablet Take 1 tablet by mouth daily. 14 tablet 0 sulindac 150 MG tablet Take 1 tablet by mouth 2 times daily. 180 tablet 1 Testosterone 25 MG/2.5GM (1%) Gel gel Place 2.5 g on skin daily. 225 g 1 dutasteride (Avodart) 0.5 MG capsule Take 1 capsule by mouth daily. (Patient not taking: Reported on 06/02/2023) 14 capsule 0 traMADol 50 MG tablet Take 1 tablet by mouth 3 times daily as needed. 21 tablet 0 Valsartan 160 MG tablet Take 1 tablet by mouth daily. (Patient not taking: Reported on 06/02/2023) 14 tablet 0 No current facility-administered medications for this visit. PMH: Past medical history, family history, social history, allergies and medications have been reviewed and are documented in the electronic record. ROS: Review of Systems System Neg/Pos Details Constitutional Negative Chills, fatigue, fever and night sweats. ENMT Negative Dysphagia, hearing loss, nasal congestion and vertigo. Eyes Negative Blurred vision and vision loss. Respiratory Negative Chest pain, cough, dyspnea, known TB exposure and wheezing. Cardio Negative Chest pain, cyanosis, heart murmur, irregular heartbeat/palpitations and syncope. Neuro Negative Difficulty walking, headache, paresthesia, poor coordination and seizures. Psych Negative Anxiety, depression and insomnia. MS/Integumentary Negative Except as noted in HPI and chief complaint and muscle weakness. Willie/Lymph Negative Bruising and easy bleeding. Vitals: 06/02/23 1339 BP: 104/62 Pulse: 73 Resp: 18 Temp: 97.4 degrees F (36.3 degrees C) TempSrc: Temporal SpO2: 91% Weight: 75 kg (165 lb 6.4 oz) Height: 1.854 m (6' 1) Physical Exam: Exam Findings Details Constitutional Normal No acute distress. Well developed. Head/Face Comments normal cephallic/ Atraumatic Head/Face Normal Facial features - Normal. Skull - Normal. Hair and scalp - Normal. Respiratory Normal Cough - Absent. Effort - Normal. Psychiatric Normal Orientation - Oriented to time, place, person & situation. Additional Physical Exam Findings: Pleasant and cooperative LUNGS: Coarse to right upper lobes diminished lower bases bilaterally. No distress or use of accessory muscle noted. Heart: RRR without murmur HOSPITAL/OUTSIDE/OFFICE IMAGES Review of Images: If available, have personally reviewed image(s) from additional outside providers as well those competed in office and/or previously and have provided my impression for todays' as above if applicable. Radiology to over read Lab Results Component Value Date HGBA1C 5.9 05/10/2023 Lab Results Component Value Date WBC 8.9 05/26/2023 HGB 13.2 (L) 05/26/2023 HCT 38.4 (L) 05/26/2023 PLATELET 220 05/26/2023 MCV 89.7 05/26/2023 Lab Results Component Value Date SEDRATE 15 05/24/2023 Lab Results Component Value Date CRP 128.6 (H) 05/26/2023 LABS If available, I have personally reviewed lab(s) from additional outside providers as well those competed in office CURRENT MEDICAL 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 (central serous retinopathy), bilateral Epiretinal membrane (ERM) of left eye 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 Malignant neoplasm of base of tongue Multiple lung nodules on CT Dysphagia Pseudophakia of both eyes Severe protein-calorie malnutrition Tear film insufficiency Vitelliform lesion of macula Hyperopia of both eyes with astigmatism and presbyopia Xerostomia due to radiotherapy Leukocytosis Cough Fever Dry heaves Elevated troponin I level Failure to thrive in adult S/P percutaneous endoscopic gastrostomy (PEG) tube placement COPD (chronic obstructive pulmonary disease) with acute bronchitis Dysphagia Cough Squamous cell carcinoma of tongue Hyperglycemia Aspiration pneumonia S/P percutaneous endoscopic gastrostomy (PEG) tube placement COPD (chronic obstructive pulmonary disease) Aspiration into airway GERD (gastroesophageal reflux disease) Noncompliance Multifocal pneumonia Hypoxia Other hypotension Elevated alkaline phosphatase level Acute respiratory failure Benign hypertension Pneumonia Hypoxia Leukocytosis BPH (benign prostatic hyperplasia) COPD exacerbation GERD (gastroesophageal reflux disease) HLD (hyperlipidemia) Severe protein-calorie malnutrition S/P percutaneous endoscopic gastrostomy (PEG) tube placement PNA (pneumonia) ASSESSMENT/DIAGNOSIS ICD-10-CM 1. Hospital discharge follow-up Z09 PLAN: Follow up with Dr Bojorquez Keep follow up with Dr Godoy o Finish course of medication Follow up as needed We discussed the natural history of this problem and usual treatments. We discussed possible treatment options including conservative, aggressive, invasive and non-invasive. These options were explained in detail. The patient and/or guardian agreed with the above assessment and plan. Differential diagnoses were considered including but not limited to degenerative change, internal derangement, fracture and any other severely limiting injury. I have performed all essential components of the history, and physical exam. I have confirmed the diagnosis and developed a plan of care at this visit. I have reviewed the note following the visit and have add edits as appropriate to my evaluation and plan of care. Josi Naylor CNP documented in this encounter [facility] 05-29-2023 History of Present illness Narrative Oncology Nutrition Therapy Reassessment RECOMMENDED MALNUTRITION DIAGNOSIS: SEVERE PROTEIN-CALORIE MALNUTRITION In the context of Chronic Illness or Injury based on: Unintentional Weight Loss: >7.5% in 3 months Insufficient Energy Intake: Less than 75% energy intake compared to estimated needs for greater than or equal to 1 month Nutrition Diagnosis: Swallowing difficulty, related to, dysphagia 2/2 head and neck cancer, as evidenced by PEG placement and diagnosis. Nutrition Intervention: -Use of PEG feeding tube for 100% nutrition needs - Use salt and soda mouth rinse Nutrition Monitoring & Evaluation: EN intake Wt status Biochemical Markers Skin integrity Plan of care Patient Condition: Pt presents for nutrition counseling for history of malignant neoplasm of base of tongue with new onset dysphagia and Feeding tube placement 2/2 cancer. Pt is seen here for phebotomy currently. Pt had PEG placed on 04/07/[address] Godoy. Pt has had three hospitalization since that time. No provider has given a prescription for tube feeding formula or supplies during hospitalization or during outpatient visits. Pt states that he no one will help me get a script for this and I have to keep paying out of pocket. Pt requests assistance in feeding tube management. Will attempt to assist in the tube feeding order. Nutrition Assessment: Patient is declining from a nutritional standpoint with multiple hospitalizations for recurring pneumonia. Patient's symptoms are: Dysphagia PEG placement NPO status No N/V/D/C Pressure injury starting at PEG Pt is currently using a combination of Boost VHC, Ensure Plus and Jevity 1.5 to provide >2800 calories Topics addressed: Caring for skin, rotating PEG bolster to avoid further pressure injury, continue to try to achieve 2800 calories. No evidence of thrush at this time. Duscussed oral hygiene and changing to non-alcohol based mouth rinse - provided recipe for soda/salt rinse. Submitted paperwork for [facility] to provide Jevity 1.5 @ 7 cartons per day and syringes, provider Dr. Brandon. Awaiting [facility] for insurance coverage. Educational materials provided: Tube Feeding Instruction Booklet Readiness to Learn: Cognitive ability: Alert and oriented Motivation to learn: Eager Family support: High - Very involved in pt care Instruction provided to: Patient and Spouse Patient learns best by: Multiple Methods Factors affecting learning: None Physical limitations affecting learning: None Anthropometrics: HEIGHT/WEIGHT/BSA Height BSA (m2) Weight 12/04/2022 2.12 m2 189 lb 02/05/2023 188 cm (6' 2.02) 2.05 m2 177 lb 14.4 oz 02/14/2023 2.03 m2 174 lb 11.2 oz 02/28/2023 188 cm (6' 2.02) 2.06 m2 178 lb 9.6 oz 03/21/2023 188 cm (6' 2.02) 2.03 m2 174 lb 9.7 oz 05/29/2023 2.01 m2 170 lb 13.7 oz Estimated body mass index is 22.41 kg/m as calculated from the following: Height as of 03/21/23: 188 cm (6' 2.02). Weight as of 03/21/23: 79.2 kg (174 lb 9.7 oz). Resting Metabolic Rate: 1616 Weight Change: 10% weight loss in 6 months Dosing Weight: 77.5 kg Estimated kilocalorie needs: 9433-5185 kilocalories determined by 35-40 kcal/kg Estimated protein needs: 93-116 grams determined by 1.2-1.5 g/kg Dosing weight Estimated fluid needs: 6997-4813 milliliters based on 1 mL per kcal Allergies: Patient has no known allergies. Medications: Current Outpatient Medications Medication Sig Dispense Refill enteric contrast (will be provided with radiology test) For CT ABD/PEL W IVCON Routine order Administer, As Directed One Time Only, via Oral, Rectal, both Oral and Rectal, Enteric Tube, Stoma or Indwelling Catheter, Enteric Contrast as designated per enteric contrast guidelines (Patient not taking: Reported on 02/28/2023) 1 Each 0 dutasteride (AVODART) 0.5 mg capsule Take 1 capsule by mouth once daily. pantoprazole DR (PROTONIX) 40 mg tablet valsartan (DIOVAN) 320 mg tablet Take 160 mg by mouth once daily. propylene glycol/peg 400 (BLINK TEARS LUBRICATING) Eye Drops Use 1 Drop in both eyes as needed. traMADol (ULTRAM) 50 mg tablet Take 1 tablet by mouth twice daily. testosterone (ANDROGEL) 50 mg/5 g (1%) gel Apply 0.5 Tubes as directed once daily. FAMOTIDINE 40 mg tablet Take 40 mg by mouth once daily. No current facility-administered medications for this visit. Need for Follow up: in one week Referred/Supervised by: Dr. Nitin BANKST Billing Type: Re-assess/15 min 3 units Billed Time: 45 minutes Signed by: Zoya Hillman RD, LD documented in this encounter [facility] 05-26-2023 Nurse Note Discharge instructions and education reviewed with pt, education provided for dx and new medications, printed education given, denies any questions, IV and tele removed. Tube feed discontinued and PEG tub flushed and capped. [facility] 05-26-2023 Miscellaneous Notes Discharge instructions and education reviewed with pt, education provided for dx and new medications, printed education given, denies any questions, IV and tele removed. Tube feed discontinued and PEG tub flushed and capped. 05/26/23 1049 Patient Interview Type of Readmission Unplanned Who is interview with? Patient;Spouse What brought you back to the hospital? Shortness of breath When did you start having problems after discharge? > 14 Days Did you reach out to your provider before coming to the [facility]/Clinic/or ED? No If no, what was the reason you did not call your provider? [place] needed to be seen and went to ED or urgent care on my own Did you/caregiver receive education re: discharge needs (ie: teaching on L/D/A, injection teaching, medications, home health, etc.) Yes Were you sent home on new medications? Yes Did you have them filled? Yes Did you take them as prescribed? Yes Did you/caregiver understand how to take all your medications? Yes Did someone review your final discharge instructions (After Visit Summary) with you/caregiver at your last discharge? Yes Who helped you after discharge? Spouse/significant other Quality Was this hospitalization related to a potential discharge planning gap? No Reviewed chart and met with patient. Spouse present and provides information during interaction. Patient is 30 day readmission due to aspiration pneumonia. Patient with history of cancer. He receives tube feeds via PEG tube. Spouse provides care. Reported medication compliance. Has no problems making medical appointments. Spouse states that she has been buying enteral feed through [employer] and other routes out of pocket due to no one providing a script for the feed. She does state that they have an appointment this week with a african history professor for recommendations for feed formulas, and that patient's ENT physician has agreed to write for the feed and supplies. Spouse questions how to get this set up outpatient. Call placed to [facility] [place] to inqure how this can be accomplished. All information provided to spouse, including form for [employer], that will need faxed once ENT provides script. States understanding. Denies any further questions or needs at this time. Reassessment completed; any changes from previous assessment noted in flowsheets. Problem: Adult Inpatient Plan of Care Goal: Plan of Care Review Outcome: Progressing Goal: Patient-Specific Goal (Individualized) Outcome: Progressing Goal: Absence of Hospital-Acquired Illness or Injury Outcome: Progressing Goal: Optimal Comfort and Wellbeing Outcome: Progressing Goal: Readiness for Transition of Care Outcome: Progressing Problem: Skin Injury Risk Increased Goal: Skin Health and Integrity Outcome: Progressing Problem: Pulmonary Impairment Goal: Improved Activity Tolerance Outcome: Progressing Goal: Effective Airway Clearance Outcome: Progressing Goal: Optimal Gas Exchange Outcome: Progressing Problem: Pneumonia Goal: Fluid Balance Outcome: Progressing Goal: Resolution of Infection Signs and Symptoms Outcome: Progressing Goal: Effective Oxygenation and Ventilation Outcome: Progressing Reassessment completed; any changes from previous assessment noted in flowsheets. Patient denies further needs at this time. Attempt made at second IV in left wrist. Patient wishes to wait for cefepime dose to be complete before receiving magnesium replacement. Assessment complete. Patient no longer with a productive cough, other changes as noted. Assessment changes as noted. Bhavesh LIMA notified of bright red sputum. OT consult received and chart reviewed. Pt supine in bed, with spouse and family present. Pt reports feeling weak, OT educated patient and family on the purpose and benefits of therapy, pt declining at this time, reporting that he is hoping to return home today. reports that patient need OP/HH therapy in the near future, recommended they follow up with primary MD to request. OT educated the difference between the two therapies as well. Pt's spouse declined wanting a referral during this hospital stay. Per patients request, OT will sign off at this time. Reassessment completed; any changes from previous assessment noted in flowsheets. Problem: Adult Inpatient Plan of Care Goal: Plan of Care Review Outcome: Progressing Goal: Patient-Specific Goal (Individualized) Outcome: Progressing Goal: Absence of Hospital-Acquired Illness or Injury Outcome: Progressing Goal: Optimal Comfort and Wellbeing Outcome: Progressing Goal: Readiness for Transition of Care Outcome: Progressing Problem: Skin Injury Risk Increased Goal: Skin Health and Integrity Outcome: Progressing Problem: Pulmonary Impairment Goal: Improved Activity Tolerance Outcome: Progressing Goal: Effective Airway Clearance Outcome: Progressing Goal: Optimal Gas Exchange Outcome: Progressing documented in this encounter [facility] 05-26-2023 History of Present illness Narrative Referral received. Chart reviewed. Patient is a 30 day readmit. Full SW assessment completed on 05/10. Spouse is also at bedside. No changes to previous assessment. Pt was evaluated by therapy, no home health recommended at this time. Pt and spouse deny any needs. Pt will return home with family support, no dc needs. Pharmacy to Dose - Vancomycin Progress Note PATIENT: Amy Sun Room/Bed: [facility] Indication: PNA Trough Goal: 15-20 g/mL Current Dose: 1000 mg IV every 8 hours Most Recent Labs: VANCOMYCIN, TROUGH Date Value Ref Range Status 05/26/2023 12.4 (L) 15.0 - 20.0 UG/ML Final 05/11/2023 16.5 15.0 - 20.0 UG/ML Final 05/10/2023 12.5 (L) 15.0 - 20.0 UG/ML Final CREATININE SERUM Date Value Ref Range Status 05/26/2023 0.55 (L) 0.70 - 1.20 MG/DL Final 05/25/2023 0.62 (L) 0.70 - 1.20 MG/DL Final 05/24/2023 0.70 0.70 - 1.20 MG/DL Final BUN Date Value Ref Range Status 05/26/2023 19 7 - 20 MG/DL Final 05/25/2023 23 (H) 7 - 20 MG/DL Final 05/24/2023 33 (H) 7 - 20 MG/DL Final Patient's CrCl is estimated to be >120 mL/min Assessment and Plan: Based upon review of laboratory results and available patient information, I will take the following action(s): no changes to Vancomycin dose or dosing interval are indicated at this time. A Pharmacist will continue to follow and order drug levels and adjust dosing as clinically appropriate. If necessary, I have modified the orders in IHIS to reflect the above plan. Please feel free to contact me with any further questions. Junior Pena RPh,[place], [facility] Phone: [phone] Date/Time: 05/26/2023 10:21 AM 05/26/23 0842 Time In/Out Time In 0842 Time Out 0910 Total Visit Time 28 minutes Total Treatment Time (skilled, billable minutes) 28 minutes PT Therapy Completed Yes Initial Evaluation/Screen Completed? 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 Chemo/RT with Cisplatin and RT and Ethyol. RT completed 02/28/09. Past Surgical History Past Surgical History: Procedure Laterality Date NECK SURGERY 2008 for cancer INGUINAL HERNIA REPAIR 1988 REMOVAL CATARACT (PEM) Bilateral VASECTOMY Existing Precautions/Restrictions no known precautions/restrictions Home Setting Residence House (1-story house) Lives With spouse First floor setup bedroom;walk-in shower;grab bars Number of stairs to enter home 2 Number of stairs in home 12 (to basement, patient accesses regularly) Stair Railings at Home entry - no rail;interior - with rail Mobility Equipment Available none used;straight cane;2 wheeled walker;axillary crutches ADL Equipment Available grab bars Home Environment Details Patient has been living independently prior to admission, but has slowly declined in overall functioning, as patient has been hospitalized 5 different times since the beginning of the year due to frequent aspiration/PNA. Patient has had PEG tube placed since March of this year. Patient remains active, generally speaking, enjoys bowling and golfing, drives, shops, etc. Previous Level of Function Ambulation Skills independent Assistive Device none used Level of Ambulation community General Pain Documentation (Adult, OB, Peds) Presence of Pain denies pain/discomfort Presence of Pain Score (Auto-calculated) 0 Cognitive Status Examination Orientation Status (Cognition) oriented x 4 Level of Consciousness alert;cooperative Able to Follow Commands (Communication) WNL Personal Safety and Judgment intact Vision no gross deficit noted Hearing hearing aids Speech no gross deficit noted Range of Motion (ROM) Range of Motion Examination bilateral lower extremity ROM was WFL Manual Muscle Testing (MMT) Manual Muscle Testing Results bilateral lower extremity MMT was WFL Muscle Tone Assessment LLE Muscle Tone Assessment WNL RLE Muscle Tone Assessment WNL Skin Integrity Skin Integrity Description WFL Edema Edema none noted Location BLEs Bed Mobility Skill: Supine to Sit, Rehab Eval Level of [place]: Supine/Sit independent Transfer Skill: Sit To Stand, Rehab Eval [place] (Sit-Stand Transfers) independent Weight-Bearing Restrictions: Sit/Stand full weight-bearing Assistive Device For Transfer: Sit/Stand other (see comments) (None required) Gait Skills, PT Eval Level of [place]: Gait independent Physical Assist/Nonphysical Assist: Gait supervision;1 person assist (assistance to manage IV pole only) Weight-Bearing Restrictions: Gait full weight-bearing Assistive Device For Transfer: Gait other (see comments) (None required) Gait Distance 300 feet Gait Analysis, PT Eval Gait Pattern Used swing-through gait Gait Deviations Identified (Gait) other (see comments) (No deviations noted) Impairments Contributing To Gait Deviations other (see comments) (No impairments identified) Stair Negotiation [place] Level: Stair Negotiation independent Weight-Bearing Restrictions: Stair Negotiation full weight-bearing Assistive Device: Stair Negotiation right rail (ascending) Number of stairs 4 Balance Additional Documentation Yes Balance Skills Assessment, Rehab Eval Timed Up and Go Test 9.45 sec without AD Sensory Examination Sensory Examination WFL Sensory Tests light touch sensation BLEs Plan of Care Interventions Planned Therapy Interventions other (see comments) (PT evaluation only) Additional Comments Patient educated on continuing with daily activity, including walking, as well as incorporating balance exercises into routine (SLS, tandem) to maintain, improve functioning. PT Outcomes PT Outcomes Trigger Yes VARELA Balance Assessment Sit to stand 4 Standing unsupported 4 Sitting with back unsupported but feet supported on floor or stool. 4 Standing to sitting 4 Transfers 4 Standing supported with eyes closed 3 Standing unsupported with feet together 4 Reaching forward with outstretched arms while standing 4 marketing support assistant object from the floor from a standing position 4 Turning to look behind over left and right shoulders while standing 4 Turns [address] foot on step while standing unsupported 4 Standing unsupported one foot in front 3 Standing on one leg 3 Varela Score 53 Score indication score < 45/56 indicates increased fall risk 30 Second Sit to Stand Test 30 Sec Sit to Stand - Total number of reps 6 sit to stand(s) Fall risk determined by 30 Sec Chair stand test Below Average TUG Test Fall risk determined by TUG Not a fall risk (<15 seconds) Assessment VTE Prevention/Management N/A - Pharmacologic Intervention (No Mechanical Prophylaxis - Therapeutic Anticoagulation);N/A - Pt. Ambulating (NO orders for mechanical/pharmacological VTE prophylaxis) Assessment Narrative Patient demosntrates current functioning essentially the same as at baseline, which sees the patient living highly independently prior to admission. Patient educated on HEP, including walking and balance exercises, to improve overall functioning and prepare for warmer weather activities (golfing, walking outside, etc.). PT evaluation only. Discharge Recommendations Patient will discharge home with spouse returning to independent living with HEP to follow to address minor balance deficits. Clinical Impression Co-evaluation/co-treatment performed? No simultaneous skilled care performed Criteria for Skilled Therapeutic Interventions Met (PT Eval) no;no problems identified which require skilled intervention;current level of function same as previous level of function Therapy Frequency no therapy warranted Anticipated Equipment Needs at Discharge (PT Eval) none Continue care plan no Today's Treatment Included PT evaluation only Goals Goals For Discharge Patient will discharge home living independently Therapist Recommendations At Discharge Recommendations PT Services not recommended at Discharge Plan Plan for next session PT evaluation only Therapist Information License # [id number] Pharmacy to Dose - Vancomycin Progress Note PATIENT: Amy Sun Room/Bed: [facility] Indication: empiric Trough Goal: 15-20 g/mL Initial Dose: 1000 mg IV every 8 hours Next Level: 0900 05/26/23 Most Recent Labs: CREATININE SERUM Date Value Ref Range Status 05/25/2023 0.62 (L) 0.70 - 1.20 MG/DL Final 05/24/2023 0.70 0.70 - 1.20 MG/DL Final 05/11/2023 0.60 (L) 0.70 - 1.20 MG/DL Final BUN Date Value Ref Range Status 05/25/2023 23 (H) 7 - 20 MG/DL Final 05/24/2023 33 (H) 7 - 20 MG/DL Final 05/11/2023 27 (H) 7 - 20 MG/DL Final Patient's CrCl is estimated to be 95.7 mL/min Assessment and Plan: Based upon review of laboratory results and available patient information, I will initiate vancomycin at the above dose and frequency. A Pharmacist will continue to follow and order drug levels and adjust dosing as clinically appropriate. If necessary, I have modified the orders in IHIS to reflect the above plan. Please feel free to contact me with any further questions. Galen Owusu [facility] Phone: [phone] Date/Time: 05/25/2023 9:30 AM ENTERAL FEEDING RECOMMENDATION Nutrition Assessment Mr. Aym Sun is a 72 y.o. male admitted to [facility] for: 1. Bronchiectasis with acute exacerbation 2. Hemoptysis 3. Acute respiratory failure with hypoxia Indication for initiating enteral feeding: History of tongue cancer as well aspiration issues. Subjective assessments / comments: Referral received for tube feeding needs. Pt with recent issues of aspiration.Pt with noted weight loss since last admit of 13.[address] will provide recommendations for continuous feeding while in hospital. Anthropometrics: Ht Readings from Last 1 Encounters: 05/25/23 1.854 m (6' 1) Wt Readings from Last 10 Encounters: 05/25/23 73.7 kg (162 lb 6.4 oz) 05/09/23 76.7 kg (169 lb) 04/22/23 79 kg (174 lb 3.2 oz) 04/20/23 80.2 kg (176 lb 12.8 oz) 04/08/23 78.5 kg (173 lb) 04/02/23 75.3 kg (166 lb) 03/18/23 80.3 kg (177 lb) 03/03/23 78.7 kg (173 lb 6.4 oz) 02/21/23 78.7 kg (173 lb 9.6 oz) 08/13/22 87.6 kg (193 lb 3.2 oz) [place] body weight: 79.9 kg (176 lb 2.4 oz) Body mass index is 21.43 kg/m . Classified as: Underweight per GLIM criteria Estimated Energy Requirements: Calories: 3578-7299 (23-28 kcals/kg IBW) Protein: 84-100 gm/day (1-1.2 gm/kg IBW) Fluids: 2071-2938 ml (23-28 ml/kg IBW) - adjust per provider rec to meet fluid needs EN Rec Enteral feeding Jevity 1.5 Goal rate 62 ml/hr Duration continuous Total mL fluids from EN 1488 Total kcal from EN 2232 Protein from EN 95 Water flush 182 ml every 4 hours TOTAL KCAL 2232 TOTAL PROTEIN 95 TOTAL mL FLUIDS 2223 Nutrition Related Labs: Lab Results Component Value Date GLUCOSE 107 (H) 05/25/2023 GLUCOSE 122 (H) 05/24/2023 GLUCOSE 137 (H) 05/11/2023 HGBA1C 5.9 05/10/2023 SODIUM 136 (L) 05/25/2023 POTASSIUM 4.2 05/25/2023 MAGNESIUM 1.9 05/25/2023 PHOSPHORUS 3.1 05/11/2023 ALBUMIN 3.0 (L) 05/25/2023 PREALBUMIN 17.2 (L) 04/19/2023 CALCIUM 7.9 (L) 05/25/2023 TP 5.6 (L) 05/25/2023 BUN 23 (H) 05/25/2023 CREATSERUM 0.62 (L) 05/25/2023 AST 20 05/25/2023 CRP 74.8 (H) 05/25/2023 HGB 12.1 (L) 05/25/2023 HCT 36.6 (L) 05/25/2023 B12 836 05/11/2023 [id number] 48.4 05/09/2023 FOLATE 12.7 05/11/2023 IRON 43 (L) 05/11/2023 Nutrition-Related History: Current Diet Orders Procedures DIET NPO WITHOUT meds Standing Status: Standing Number of Occurrences: 1 Order Specific Question: NPO Meds: Answer: WITHOUT meds No Known Allergies Past Medical History: Diagnosis Date Abnormal glucose Bilateral leg edema BPH without urinary obstruction Chronic kidney disease (CKD), stage I Degenerative joint disease Enthesopathy Essential hypertension, benign Fatigue Former smoker 2 PPD x46 years, quite 09/19/2008 GERD (gastroesophageal reflux disease) Hepatic steatosis Hyperlipidemia Impotence of organic origin Insomnia Obesity Testicular hypofunction Tongue cancer Stage IIB, T2, N1, 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 Chemo/RT with Cisplatin and RT and Ethyol. RT completed 02/28/09. Past Surgical History: Procedure Laterality Date NECK SURGERY 2008 for cancer INGUINAL HERNIA REPAIR 1988 REMOVAL CATARACT (PEM) Bilateral VASECTOMY Nutrition Diagnosis NC-1.1 Swallowing difficulty related to oral (tongue cancer) as evidenced by patient with PEG for nutritional needs NC-3.2 Unintended weight loss related to decreased ability to consume sufficient energy/ frequent hospitalizations as evidenced by weight loss of 13.52 lbs over one month that indicates 7.6% change that is significant and patient with use of PEG for nutritional needs 2/T tongue cancer. Interventions Provide Jevity 1.5 at 30 mL/hr and advance by 30 mL q 8h if well tolerated until goal rate of 62 mL/hr is reached Provide 180 mL free water flush q 4h Monitoring & Evaluation Enteral Monitoring: Elevate head of bed 30-45 degrees while feeding Check gastric residuals every 4 hours when initiating feeding. May check every 6-8 hours once goal rate is achieved Hold gastric feeds for residuals more than 500 mL. Avoid holding feeds for residuals < 500 mL without other signs of intolerance and consider a prokinetic agent for GRV volumes 250-500 mL If unable to meet caloric goals after 7-10 days, consider initiating supplemental parenteral nutrition Reassess goal feed rate on an ongoing basis Daily lab draws: Phosphorus Magnesium Sodium Potassium Blood Glucose Every three days draw triglyceride lab Do not put blue dye or coca cola (or similar products) into the feeding tube Patient at high nutritional risk. Reassess 3 x week. Available by consult. Nutrition Goals: Meet estimated nutrition requirements through enteral nutrition support Pt to tolerate enteral nutrition Maintain current weight and prevent weight loss Preserve lean body mass Prevent nutrient deficiencies Maintain electrolyte and fluid balance Monitor patient weight, labs, and tolerance to enteral nutrition Daily weights @ 4 AM I/O documentation of all fluids, EN, and PO intake Matthew Soto RD, LD Registered Dietitian, Licensed Dietitian 05/25/23 Dr. Gomez ask RT not to place pt on bipap at this time, but have on standby. documented in this encounter [facility] 05-26-2023 Nurse Note 05/26/23 1049 Patient Interview Type of Readmission Unplanned Who is interview with? Patient;Spouse What brought you back to the hospital? Shortness of breath When did you start having problems after discharge? > 14 Days Did you reach out to your provider before coming to the [facility]/Clinic/or ED? No If no, what was the reason you did not call your provider? [place] needed to be seen and went to ED or urgent care on my own Did you/caregiver receive education re: discharge needs (ie: teaching on L/D/A, injection teaching, medications, home health, etc.) Yes Were you sent home on new medications? Yes Did you have them filled? Yes Did you take them as prescribed? Yes Did you/caregiver understand how to take all your medications? Yes Did someone review your final discharge instructions (After Visit Summary) with you/caregiver at your last discharge? Yes Who helped you after discharge? Spouse/significant other Quality Was this hospitalization related to a potential discharge planning gap? No Reviewed chart and met with patient. Spouse present and provides information during interaction. Patient is 30 day readmission due to aspiration pneumonia. Patient with history of cancer. He receives tube feeds via PEG tube. Spouse provides care. Reported medication compliance. Has no problems making medical appointments. Spouse states that she has been buying enteral feed through [employer] and other routes out of pocket due to no one providing a script for the feed. She does state that they have an appointment this week with a african history professor for recommendations for feed formulas, and that patient's ENT physician has agreed to write for the feed and supplies. Spouse questions how to get this set up outpatient. Call placed to [facility] [place] to inqure how this can be accomplished. All information provided to spouse, including form for [employer], that will need faxed once ENT provides script. States understanding. Denies any further questions or needs at this time. [facility] 05-26-2023 Hospital course Narrative Discharge Summary Summary Time: 05/26/23 10:39 AM Name: Amy Sun Age: 72 y.o. Birthday: 1950 Admit Date: 05/24/2023 7:21 PM Discharge Date: 05/26/2023 Brief Summary of Hospital Course: 72-year-old male patient admitted to the hospital with pneumonia and hemoptysis. During admission he was continued on antibiotics. Cultures were obtained. The patient remained on 2 L of oxygen until this morning he is currently on room air. The patient's hemoglobin remained stable. Inflammatory markers are slightly elevated. This morning he is working well with therapy and denies any complaints of chest pain or shortness of breath. He is stable for discharge home. He will be discharged on prednisone in a Levaquin prescription. 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 Consultants: N/A Discharge Diagnosis: Principal Problem: Pneumonia Active Problems: Benign hypertension Hypoxia Leukocytosis BPH (benign prostatic hyperplasia) COPD exacerbation GERD (gastroesophageal reflux disease) HLD (hyperlipidemia) Severe protein-calorie malnutrition S/P percutaneous endoscopic gastrostomy (PEG) tube placement Discharge Vital Signs: Blood pressure 121/63, pulse 57, temperature 97.6 F (36.4 C), temperature source Temporal, resp. rate 21, height 1.854 m (6' 1), weight 75.4 kg (166 lb 4.8 oz), SpO2 92%. O2 Sat (%): 92 % (05/25 699) O2 Device: nasal cannula (05/26 819) Flow (L/min): 2 (05/26 819) Discharge Labs: Lab Results Component Value Date WBC 8.9 05/26/2023 HGB 13.2 (L) 05/26/2023 HCT 38.4 (L) 05/26/2023 PLATELET 220 05/26/2023 MCV 89.7 05/26/2023 @LASTMAGNESIUM(1D,2)@ Lab Results Component Value Date INR 1.27 (H) 05/26/2023 INR 1.05 05/24/2023 INR 1.17 (H) 04/20/2023 PT 16.0 (H) 05/26/2023 PT 13.9 05/24/2023 PT 15.0 (H) 04/20/2023 Lab Results Component Value Date CREATSERUM 0.55 (L) 05/26/2023 BUN 19 05/26/2023 SODIUM 136 (L) 05/26/2023 POTASSIUM 4.0 05/26/2023 CHLORIDE 105 05/26/2023 CO2 29 05/26/2023 Lab Results Component Value Date SPGRVTYUR 1.020 05/24/2023 GLUCOSEURINE NEGATIVE 05/24/2023 BILIRUBINURI NEGATIVE 05/24/2023 KETONESURINE NEGATIVE 05/24/2023 NITRITESURIN NEGATIVE 05/24/2023 LEUKOCESTUR NEGATIVE 05/24/2023 PHYSICAL EXAM: General: Patient resting comfortably. Awake. No acute distress. Cardiovascular: Regular rate and rhythm, without murmurs, rubs, or gallops. Respiratory: Bilateral Upper and Lower Lobes without wheezes, rales, or rhonchi Abdomen: Soft, rounded, non-tender. Bowel sounds present x4 quadrants. No rebound. No organomegaly or masses noted upon deep palpation. Extremities: No edema, clubbing or cyanosis, pulses palpable 2+ distally. Skin: Warm, Dry, Intact. Discharge Medications: Medication List for when you go home START taking these medications Morning Afternoon Evening Bedtime As Needed levoFLOXacin 500 MG TABS Take 1 tablet by mouth daily for 5 days. Commonly known as: LEVAQUIN Last time this was given: Ask your nurse or doctor CHANGE how you take these medications Morning Afternoon Evening Bedtime As Needed predniSONE 20 MG TABS Take 2 tablets by mouth 2 times daily for 3 days, THEN 1 tablet 2 times daily for 4 days, THEN 0.5 tablets 2 times daily for 4 days. Commonly known as: DELTASONE What changed: The strength you have reported taking of this medication has changed See the new instructions. Start taking on: May 26, 2023 CONTINUE taking these medications Morning Afternoon Evening Bedtime As Needed dutasteride 0.5 MG CAPS Take 1 capsule by mouth daily. Commonly known as: Avodart For diagnoses: Benign prostatic hyperplasia with lower urinary tract symptoms, symptom details unspecified pantoprazole Sodium 40 MG PACK Take 1 packet by mouth every morning before breakfast. am Commonly known as: PROTONIX Last time this was given: Ask your nurse or doctor pilocarpine 2 % SOLN 1 drop 3 times daily as needed for Other (PO for secretions). Commonly known as: PILOCAR Rosuvastatin 5 MG TABS Take 1 tablet by mouth daily. Commonly known as: Crestor For diagnoses: Hyperlipidemia, unspecified hyperlipidemia type sulindac 150 MG TABS Take 1 tablet by mouth 2 times daily. Commonly known as: CLINORIL Testosterone 25 MG/2.5GM (1%) GEL gel Place 2.5 g on skin daily. For diagnoses: Testicular hypofunction traMADol 50 MG TABS Take 1 tablet by mouth 3 times daily as needed. Commonly known as: ULTRAM For diagnoses: Arthritis Valsartan 160 MG TABS Take 1 tablet by mouth daily. Commonly known as: DIOVAN For diagnoses: Benign hypertension Discharge Activity: Resume pre-hospital activities as tolerated. Discharge Diet: Resume pre-hospital diet as tolerated. Discharge Follow-up: Gunjan Godoy MD [address] [facility] [id number] Follow up in 1 week(s) Yobani Smalls MD [address] [facility] [id number] Follow up in 1 week(s) Discharge Disposition: Patient will be discharged in stable condition. Discharge Time: I spent a total of 10 minutes in management of this patient. The details of my visit are listed in my documentation above. Pito Lance PA-C completing Discharge Summary for Dr. Maria Please note portions of this note utilized [employer] dictation software, please excuse any typographical or grammatical errors Associated attestation - Cayla Maria MD - 05/26/2023 6:59 PM EDT Patient was seen, examined and discussed during rounds today. He is doing much better, no significant complaints at the time I saw him, weaned off to room air successfully, discussed use of nebulized bronchodilators to help mobilize secretions with patient and his and those were prescribed on discharge in addition to course of Levaquin with prednisone. Encouraged to ambulate at home and increase activity, follow-up as directed with Pulmonary, time spent on discharge 32 minutes documented in this encounter [facility] 05-26-2023 Nurse Note Reassessment completed; any changes from previous assessment noted in flowsheets. T [facility] 05-26-2023 Plan of care note Problem: Adult Inpatient Plan of Care Goal: Plan of Care Review Outcome: Progressing Goal: Patient-Specific Goal (Individualized) Outcome: Progressing Goal: Absence of Hospital-Acquired Illness or Injury Outcome: Progressing Goal: Optimal Comfort and Wellbeing Outcome: Progressing Goal: Readiness for Transition of Care Outcome: Progressing Problem: Skin Injury Risk Increased Goal: Skin Health and Integrity Outcome: Progressing Problem: Pulmonary Impairment Goal: Improved Activity Tolerance Outcome: Progressing Goal: Effective Airway Clearance Outcome: Progressing Goal: Optimal Gas Exchange Outcome: Progressing Problem: Pneumonia Goal: Fluid Balance Outcome: Progressing Goal: Resolution of Infection Signs and Symptoms Outcome: Progressing Goal: Effective Oxygenation and Ventilation Outcome: Progressing [facility] 05-26-2023 Nurse Note Reassessment completed; any changes from previous assessment noted in flowsheets. Patient denies further needs at this time. [facility] 05-25-2023 Nurse Note Attempt made at second IV in left wrist. Patient wishes to wait for cefepime dose to be complete before receiving magnesium replacement. [facility] 05-25-2023 Nurse Note Assessment complete. Patient no longer with a productive cough, other changes as noted. [facility] 05-25-2023 Nurse Note Assessment changes as noted. Bhavesh LIMA notified of bright red sputum. [facility] 05-25-2023 Progress note Formatting of t his note might be different from the original. OT consult received and chart reviewed. Pt supine in bed, with spouse and family present. Pt reports feeling weak, OT educated patient and family on the purpose and benefits of therapy, pt declining at this time, reporting that he is hoping to return home today. reports that patient need OP/HH therapy in the near future, recommended they follow up with primary MD to request. OT educated the difference between the two therapies as well. Pt's spouse declined wanting a referral during this hospital stay. Per patients request, OT will sign off at this time. [facility] 05-25-2023 History and physical note History and Physical Examination 05/25/23 10:35 AM Chief Complaint: SOB History of Present Illness: Patient is a 72 y.o. male presents to [facility] for evaluation of shortness of breath. 72-year-old male with a history of tongue cancer presented to the hospital with worsening shortness of breath. He recently had a PEG tube placed for tube feedings. On evaluation imaging is consistent with a right lower lobe pneumonia and bronchiectasis. The patient was requiring 2 L nasal cannula oxygen. He was admitted to the hospital for further evaluation. On examination this morning he reports feeling well however he is now experiencing hemoptysis. Cultures are currently pending. The patient has been continued on broad-spectrum antibiotics. Objective: Patient Active Problem List Diagnosis Date Noted Benign hypertension 05/25/2023 Pneumonia 05/25/2023 Hypoxia 05/25/2023 Leukocytosis 05/25/2023 BPH (benign prostatic hyperplasia) 05/25/2023 COPD exacerbation 05/25/2023 GERD (gastroesophageal reflux disease) 05/25/2023 HLD (hyperlipidemia) 05/25/2023 Severe protein-calorie malnutrition 05/25/2023 S/P percutaneous endoscopic gastrostomy (PEG) tube placement 05/25/2023 Acute respiratory failure 05/24/2023 Multifocal pneumonia 05/09/2023 Hypoxia 05/09/2023 Other hypotension 05/09/2023 Elevated alkaline phosphatase level 05/09/2023 COPD (chronic obstructive pulmonary disease) with acute bronchitis 04/19/2023 Dysphagia 04/19/2023 Cough 04/19/2023 Squamous cell carcinoma of tongue 04/19/2023 Hyperglycemia 04/19/2023 Aspiration pneumonia 04/19/2023 S/P percutaneous endoscopic gastrostomy (PEG) tube placement 04/19/2023 COPD (chronic obstructive pulmonary disease) 04/19/2023 Aspiration into airway 04/19/2023 GERD (gastroesophageal reflux disease) 04/19/2023 Noncompliance 04/19/2023 Failure to thrive in adult 04/07/2023 S/P percutaneous endoscopic gastrostomy (PEG) tube placement 04/07/2023 Leukocytosis 03/03/2023 Cough 03/03/2023 Fever 03/03/2023 Dry heaves 03/03/2023 Elevated troponin I level 03/03/2023 Severe protein-calorie malnutrition 03/02/2023 Aspiration into airway 12/06/2022 Dysphagia 07/23/2022 Xerostomia due to radiotherapy 07/23/2022 Vitelliform lesion of macula 11/01/[address] lung nodules on CT 01/15/2019 Hyperopia of both eyes with astigmatism and presbyopia 06/02/2018 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 (central serous retinopathy), 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 Epiretinal membrane (ERM) of left eye 06/02/2017 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/02/2017 Benign prostatic hyperplasia with lower urinary tract symptoms 07/31/2016 Arthritis 07/31/2016 Impotence of organic origin Abnormal glucose Testicular hypofunction Fatigue Enthesopathy Gastroesophageal reflux disease without esophagitis Hyperlipidemia BPH without urinary obstruction Degenerative joint disease Bilateral leg edema Chronic kidney disease (CKD), stage I Obesity Tear film insufficiency 06/05/2016 Pseudophakia of both eyes 04/06/2015 Essential hypertension 03/14/2015 Astigmatism of left eye 03/14/2015 Hepatic steatosis Malignant neoplasm of base of tongue 11/25/2008 Past Medical History: Diagnosis Date Abnormal glucose Bilateral leg edema BPH without urinary obstruction Chronic kidney disease (CKD), stage I Degenerative joint disease Enthesopathy Essential hypertension, benign Fatigue Former smoker 2 PPD x46 years, quite 09/19/2008 GERD (gastroesophageal reflux disease) Hepatic steatosis Hyperlipidemia Impotence of organic origin Insomnia Obesity Testicular hypofunction Tongue cancer Stage IIB, T2, N1, 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 Chemo/RT with Cisplatin and RT and Ethyol. RT completed 02/28/09. Past Surgical History: Procedure Laterality Date NECK SURGERY 2008 for cancer INGUINAL HERNIA REPAIR 1987 REMOVAL CATARACT (PEM) Bilateral VASECTOMY Social History Tobacco Use Smoking status: Former Types: Cigarettes Smokeless tobacco: Never Substance Use Topics Alcohol use: No Family History Problem Relation Age of Onset No known problems Mother Heart Disease - Other Father Heart Disease - Other Brother Heart Disease - Other Other Coronary Artery Disease Other Medications Prior to Admission Medication Sig Dispense Refill Last Dose pantoprazole Sodium 40 MG Pack Take 1 packet by mouth every morning before breakfast. am 05/24/2023 pilocarpine 2 % Solution 1 drop 3 times daily as needed for Other (PO for secretions). Past Week Rosuvastatin (Crestor) 5 MG tablet Take 1 tablet by mouth daily. 14 tablet 0 05/23/2023 sulindac 150 MG tablet Take 1 tablet by mouth 2 times daily. 180 tablet 1 05/24/2023 Testosterone 25 MG/2.5GM (1%) Gel gel Place 2.5 g on skin daily. 225 g 1 05/24/2023 Valsartan 160 MG tablet Take 1 tablet by mouth daily. 14 tablet 0 05/24/2023 dutasteride (Avodart) 0.5 MG capsule Take 1 capsule by mouth daily. 14 capsule 0 predniSONE 10 MG tablet 4 tabs po daily x 3 days, 3 tabs po daily x 3 days, 2 tabs po daily x 3 days, 1 tab po daily x 3 days, then discontinue (Patient not taking: Reported on 05/25/2023) 30 tablet 0 Not Taking traMADol 50 MG tablet Take 1 tablet by mouth 3 times daily as needed. 21 tablet 0 No Known Allergies Review of Systems: Ten systems reviewed and found to be negative unless otherwise stated in the history and present illness. PHYSICAL EXAM: Patient Vitals for the past 8 hrs: BP Temp Temp src Pulse Resp SpO2 05/25/23 0800 137/65 -- -- 65 18 92 % 05/25/23 0715 -- -- -- -- -- 95 % 05/25/23 0711 119/68 97.8 F (36.6 C) Temporal 58 24 94 % 05/25/23 0700 -- -- -- -- -- 95 % 05/25/23 0600 137/75 -- -- 58 19 97 % 05/25/23 0500 -- -- -- 56 22 94 % 05/25/23 0400 100/57 -- -- 56 22 93 % 05/25/23 0350 -- 98 F (36.7 C) Temporal -- -- -- 05/25/23 0300 -- -- -- 62 (!) 7 (!) 88 % General: Patient resting comfortably. Awake. HEENT: Normalcephalic, atraumatic. Pupils equal, round, reactive, to light and accomodation B/L. Bilateral nares patent without obvious drainage. Oral mucosa moist, pink, intact without ulcers or lesions. Neck: No JVD, no thyromegaly, no anterior or posterior lymphadenopathy. Cardiovascular: Regular rate and rhythm, without murmurs, rubs, or gallops. Respiratory: Diminished Abdomen: Soft, rounded, non-tender. Bowel sounds present x4 quadrants. No rebound. No organomegaly or masses noted upon deep palpation. Extremities: No edema, clubbing or cyanosis, pulses palpable 2+ distally. Skin: Warm, Dry, Intact. No obvious rashes or lesions noted. Neuro: Patient awake, alert, orientedx3. Cranial nerves 2-12 grossly intact upon seated examination. No focal defiects noted. M/S: No joint errythema or pain noted; no clubbing Diagnostics: Lab Results Component Value Date WBC 13.6 (H) 05/25/2023 HGB 12.1 (L) 05/25/2023 HCT 36.6 (L) 05/25/2023 PLATELET 221 05/25/2023 MCV 89.9 05/25/2023 @LASTMAGNESIUM(1D,2)@ Lab Results Component Value Date INR 1.05 05/24/2023 INR 1.17 (H) 04/20/2023 INR 1.12 (H) 04/19/2023 PT 13.9 05/24/2023 PT 15.0 (H) 04/20/2023 PT 14.5 (H) 04/19/2023 Lab Results Component Value Date CREATSERUM 0.62 (L) 05/25/2023 BUN 23 (H) 05/25/2023 SODIUM 136 (L) 05/25/2023 POTASSIUM 4.2 05/25/2023 CHLORIDE 102 05/25/2023 CO2 36 (H) 05/25/2023 Lab Results Component Value Date SPGRVTYUR 1.020 05/24/2023 GLUCOSEURINE NEGATIVE 05/24/2023 BILIRUBINURI NEGATIVE 05/24/2023 KETONESURINE NEGATIVE 05/24/2023 NITRITESURIN NEGATIVE 05/24/2023 LEUKOCESTUR NEGATIVE 05/24/2023 Full Code Impression and Plan: Principal Problem: Pneumonia - Continue HCAP - Cultures pending , on 2L NC oxygen , hemoptysis now , may need bronch Active Problems: Benign hypertension Hypoxia Leukocytosis BPH (benign prostatic hyperplasia) COPD exacerbation GERD (gastroesophageal reflux disease) HLD (hyperlipidemia) Severe protein-calorie malnutrition S/P percutaneous endoscopic gastrostomy (PEG) tube placement PT OT SS for dc planning GI/DVT prophylaxis with protonix and Lovenox This plan of care was initiated in collaboration with the attending physician Dr. Maria Please note Portions of this note utilized [employer] dictation software, please excuse any typographical or grammatical errors I spent a total of 22 minutes in management of this patient. The details of my visit are listed in my documentation above. [facility] Medicine Associated attestation - Cayla Maria MD - 05/25/2023 7:03 PM EDT I have personally seen and examined Amy Sun and I agree with the physical exam as stated below. I have personally reviewed all available clinical data related to today's encounter including, but not limited to, radiology images and reports, laboratory data, and procedure reports. I have been fully involved in formulation of the assessment and plan and agree with the MICHELLE findings and plan of care as documented. This is a 72-year-old gentleman with history of recurrent aspiration pneumonia, with resultant bronchiectasis presenting with recurrent symptoms of sepsis, fever, cough with sputum production followed by felice hemoptysis, CT showed a small infiltrate in the left lower lobe in addition to chronic changes in the right lower lobe including bronchiectatic area with mucus plugging. Patient was treated with aggressive antibiotics, bronchodilators, and admitted to ICU for observation, he is markedly improved this morning except for his morning hemoptysis which seemed to taper off throughout the day Assessment, plan, and Medical decision making: Recurrent aspiration pneumonia Secondary bronchiectasis with acute exacerbation Acute hemoptysis likely secondary to the above, if persistent patient may need bronchoscopic evaluation Status post PEG tube placement for nutritional support with NPO status due to his frequent aspiration pneumonia History of tongue cancer status post chemo/RT 14 years ago with no recurrences Continue current antibiotic coverage, bronchodilators, pulmonary toileting, encouraged increasing activity as tolerated, monitor hemoptysis overnight if resolved continue with antibiotics alone, otherwise may need endoscopic evaluation [facility] 05-25-2023 History and physical note History and Physical Examination 05/25/23 10:35 AM Chief Complaint: SOB History of Present Illness: Patient is a 72 y.o. male presents to [facility] for evaluation of shortness of breath. 72-year-old male with a history of tongue cancer presented to the hospital with worsening shortness of breath. He recently had a PEG tube placed for tube feedings. On evaluation imaging is consistent with a right lower lobe pneumonia and bronchiectasis. The patient was requiring 2 L nasal cannula oxygen. He was admitted to the hospital for further evaluation. On examination this morning he reports feeling well however he is now experiencing hemoptysis. Cultures are currently pending. The patient has been continued on broad-spectrum antibiotics. Objective: Patient Active Problem List Diagnosis Date Noted Benign hypertension 05/25/2023 Pneumonia 05/25/2023 Hypoxia 05/25/2023 Leukocytosis 05/25/2023 BPH (benign prostatic hyperplasia) 05/25/2023 COPD exacerbation 05/25/2023 GERD (gastroesophageal reflux disease) 05/25/2023 HLD (hyperlipidemia) 05/25/2023 Severe protein-calorie malnutrition 05/25/2023 S/P percutaneous endoscopic gastrostomy (PEG) tube placement 05/25/2023 Acute respiratory failure 05/24/2023 Multifocal pneumonia 05/09/2023 Hypoxia 05/09/2023 Other hypotension 05/09/2023 Elevated alkaline phosphatase level 05/09/2023 COPD (chronic obstructive pulmonary disease) with acute bronchitis 04/19/2023 Dysphagia 04/19/2023 Cough 04/19/2023 Squamous cell carcinoma of tongue 04/19/2023 Hyperglycemia 04/19/2023 Aspiration pneumonia 04/19/2023 S/P percutaneous endoscopic gastrostomy (PEG) tube placement 04/19/2023 COPD (chronic obstructive pulmonary disease) 04/19/2023 Aspiration into airway 04/19/2023 GERD (gastroesophageal reflux disease) 04/19/2023 Noncompliance 04/19/2023 Failure to thrive in adult 04/07/2023 S/P percutaneous endoscopic gastrostomy (PEG) tube placement 04/07/2023 Leukocytosis 03/03/2023 Cough 03/03/2023 Fever 03/03/2023 Dry heaves 03/03/2023 Elevated troponin I level 03/03/2023 Severe protein-calorie malnutrition 03/02/2023 Aspiration into airway 12/06/2022 Dysphagia 07/23/2022 Xerostomia due to radiotherapy 07/23/2022 Vitelliform lesion of macula 11/01/[address] lung nodules on CT 01/15/2019 Hyperopia of both eyes with astigmatism and presbyopia 06/02/2018 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 (central serous retinopathy), 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 Epiretinal membrane (ERM) of left eye 06/02/2017 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/02/2017 Benign prostatic hyperplasia with lower urinary tract symptoms 07/31/2016 Arthritis 07/31/2016 Impotence of organic origin Abnormal glucose Testicular hypofunction Fatigue Enthesopathy Gastroesophageal reflux disease without esophagitis Hyperlipidemia BPH without urinary obstruction Degenerative joint disease Bilateral leg edema Chronic kidney disease (CKD), stage I Obesity Tear film insufficiency 06/05/2016 Pseudophakia of both eyes 04/06/2015 Essential hypertension 03/14/2015 Astigmatism of left eye 03/14/2015 Hepatic steatosis Malignant neoplasm of base of tongue 11/25/2008 Past Medical History: Diagnosis Date Abnormal glucose Bilateral leg edema BPH without urinary obstruction Chronic kidney disease (CKD), stage I Degenerative joint disease Enthesopathy Essential hypertension, benign Fatigue Former smoker 2 PPD x46 years, quite 09/19/2008 GERD (gastroesophageal reflux disease) Hepatic steatosis Hyperlipidemia Impotence of organic origin Insomnia Obesity Testicular hypofunction Tongue cancer Stage IIB, T2, N1, 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 Chemo/RT with Cisplatin and RT and Ethyol. RT completed 02/28/09. Past Surgical History: Procedure Laterality Date NECK SURGERY 2008 for cancer INGUINAL HERNIA REPAIR 1987 REMOVAL CATARACT (PEM) Bilateral VASECTOMY Social History Tobacco Use Smoking status: Former Types: Cigarettes Smokeless tobacco: Never Substance Use Topics Alcohol use: No Family History Problem Relation Age of Onset No known problems Mother Heart Disease - Other Father Heart Disease - Other Brother Heart Disease - Other Other Coronary Artery Disease Other Medications Prior to Admission Medication Sig Dispense Refill Last Dose pantoprazole Sodium 40 MG Pack Take 1 packet by mouth every morning before breakfast. am 05/24/2023 pilocarpine 2 % Solution 1 drop 3 times daily as needed for Other (PO for secretions). Past Week Rosuvastatin (Crestor) 5 MG tablet Take 1 tablet by mouth daily. 14 tablet 0 05/23/2023 sulindac 150 MG tablet Take 1 tablet by mouth 2 times daily. 180 tablet 1 05/24/2023 Testosterone 25 MG/2.5GM (1%) Gel gel Place 2.5 g on skin daily. 225 g 1 05/24/2023 Valsartan 160 MG tablet Take 1 tablet by mouth daily. 14 tablet 0 05/24/2023 dutasteride (Avodart) 0.5 MG capsule Take 1 capsule by mouth daily. 14 capsule 0 predniSONE 10 MG tablet 4 tabs po daily x 3 days, 3 tabs po daily x 3 days, 2 tabs po daily x 3 days, 1 tab po daily x 3 days, then discontinue (Patient not taking: Reported on 05/25/2023) 30 tablet 0 Not Taking traMADol 50 MG tablet Take 1 tablet by mouth 3 times daily as needed. 21 tablet 0 No Known Allergies Review of Systems: Ten systems reviewed and found to be negative unless otherwise stated in the history and present illness. PHYSICAL EXAM: Patient Vitals for the past 8 hrs: BP Temp Temp src Pulse Resp SpO2 05/25/23 0800 137/65 -- -- 65 18 92 % 05/25/23 0715 -- -- -- -- -- 95 % 05/25/23 0711 119/68 97.8 F (36.6 C) Temporal 58 24 94 % 05/25/23 0700 -- -- -- -- -- 95 % 05/25/23 0600 137/75 -- -- 58 19 97 % 05/25/23 0500 -- -- -- 56 22 94 % 05/25/23 0400 100/57 -- -- 56 22 93 % 05/25/23 0350 -- 98 F (36.7 C) Temporal -- -- -- 05/25/23 0300 -- -- -- 62 (!) 7 (!) 88 % General: Patient resting comfortably. Awake. HEENT: Normalcephalic, atraumatic. Pupils equal, round, reactive, to light and accomodation B/L. Bilateral nares patent without obvious drainage. Oral mucosa moist, pink, intact without ulcers or lesions. Neck: No JVD, no thyromegaly, no anterior or posterior lymphadenopathy. Cardiovascular: Regular rate and rhythm, without murmurs, rubs, or gallops. Respiratory: Diminished Abdomen: Soft, rounded, non-tender. Bowel sounds present x4 quadrants. No rebound. No organomegaly or masses noted upon deep palpation. Extremities: No edema, clubbing or cyanosis, pulses palpable 2+ distally. Skin: Warm, Dry, Intact. No obvious rashes or lesions noted. Neuro: Patient awake, alert, orientedx3. Cranial nerves 2-12 grossly intact upon seated examination. No focal defiects noted. M/S: No joint errythema or pain noted; no clubbing Diagnostics: Lab Results Component Value Date WBC 13.6 (H) 05/25/2023 HGB 12.1 (L) 05/25/2023 HCT 36.6 (L) 05/25/2023 PLATELET 221 05/25/2023 MCV 89.9 05/25/2023 @LASTMAGNESIUM(1D,2)@ Lab Results Component Value Date INR 1.05 05/24/2023 INR 1.17 (H) 04/20/2023 INR 1.12 (H) 04/19/2023 PT 13.9 05/24/2023 PT 15.0 (H) 04/20/2023 PT 14.5 (H) 04/19/2023 Lab Results Component Value Date CREATSERUM 0.62 (L) 05/25/2023 BUN 23 (H) 05/25/2023 SODIUM 136 (L) 05/25/2023 POTASSIUM 4.2 05/25/2023 CHLORIDE 102 05/25/2023 CO2 36 (H) 05/25/2023 Lab Results Component Value Date SPGRVTYUR 1.020 05/24/2023 GLUCOSEURINE NEGATIVE 05/24/2023 BILIRUBINURI NEGATIVE 05/24/2023 KETONESURINE NEGATIVE 05/24/2023 NITRITESURIN NEGATIVE 05/24/2023 LEUKOCESTUR NEGATIVE 05/24/2023 Full Code Impression and Plan: Principal Problem: Pneumonia - Continue HCAP - Cultures pending , on 2L NC oxygen , hemoptysis now , may need bronch Active Problems: Benign hypertension Hypoxia Leukocytosis BPH (benign prostatic hyperplasia) COPD exacerbation GERD (gastroesophageal reflux disease) HLD (hyperlipidemia) Severe protein-calorie malnutrition S/P percutaneous endoscopic gastrostomy (PEG) tube placement PT OT SS for dc planning GI/DVT prophylaxis with protonix and Lovenox This plan of care was initiated in collaboration with the attending physician Dr. Maria Please note Portions of this note utilized [employer] dictation software, please excuse any typographical or grammatical errors I spent a total of 22 minutes in management of this patient. The details of my visit are listed in my documentation above. [facility] Medicine Associated attestation - Cayla Maria MD - 05/25/2023 7:03 PM EDT I have personally seen and examined Amy Sun and I agree with the physical exam as stated below. I have personally reviewed all available clinical data related to today's encounter including, but not limited to, radiology images and reports, laboratory data, and procedure reports. I have been fully involved in formulation of the assessment and plan and agree with the MICHELLE findings and plan of care as documented. This is a 72-year-old gentleman with history of recurrent aspiration pneumonia, with resultant bronchiectasis presenting with recurrent symptoms of sepsis, fever, cough with sputum production followed by felice hemoptysis, CT showed a small infiltrate in the left lower lobe in addition to chronic changes in the right lower lobe including bronchiectatic area with mucus plugging. Patient was treated with aggressive antibiotics, bronchodilators, and admitted to ICU for observation, he is markedly improved this morning except for his morning hemoptysis which seemed to taper off throughout the day Assessment, plan, and Medical decision making: Recurrent aspiration pneumonia Secondary bronchiectasis with acute exacerbation Acute hemoptysis likely secondary to the above, if persistent patient may need bronchoscopic evaluation Status post PEG tube placement for nutritional support with NPO status due to his frequent aspiration pneumonia History of tongue cancer status post chemo/RT 14 years ago with no recurrences Continue current antibiotic coverage, bronchodilators, pulmonary toileting, encouraged increasing activity as tolerated, monitor hemoptysis overnight if resolved continue with antibiotics alone, otherwise may need endoscopic evaluation documented in this encounter [facility] 05-25-2023 Nurse Note Reassessment completed; any changes from previous assessment noted in flowsheets. [facility] 05-25-2023 Plan of care note Problem: Adult Inpatient Plan of Care Goal: Plan of Care Review Outcome: Progressing Goal: Patient-Specific Goal (Individualized) Outcome: Progressing Goal: Absence of Hospital-Acquired Illness or Injury Outcome: Progressing Goal: Optimal Comfort and Wellbeing Outcome: Progressing Goal: Readiness for Transition of Care Outcome: Progressing Problem: Skin Injury Risk Increased Goal: Skin Health and Integrity Outcome: Progressing Problem: Pulmonary Impairment Goal: Improved Activity Tolerance Outcome: Progressing Goal: Effective Airway Clearance Outcome: Progressing Goal: Optimal Gas Exchange Outcome: Progressing [facility] 05-24-2023 Emergency department Note Room assignment [id number]. [facility] 05-24-2023 Emergency department Note Room assignment [id number]. Per sepsis protocol IV bolus not needed at this time Pts lactic is 1.5, SBP [address] Gomez start pt on a 125ml/hr maintenance fluids Emergency Department Report [facility] EMERGENCY [facility]PART[facility] Service Date:.05/24/23 PCP: Gunjan Godoy Chief Complaint: Chief Complaint Patient presents with Cough Fever Per , he has been terribly tired for the past couple of days. He has a peg tube placed due to throat cancer and he aspirates a lot. I think he has pneumonia again says fever 102 fever at home and increased weakness. Upon placing sPo2 of patient- pt is 69% with good waveform. Pt is not tachypneic and breathing shallow. Pt has frequent histories of aspiration pneumonia HPI Amy Sun is a 72 y.o. male presents to the ED today due to possible aspiration. History initially given by the patient's the patient has a history of lingular cancer has a PEG tube and has history of aspiration pneumonia. She states he has having a coughing attack with blood in the mucus. He then became more somnolent at that time she brought him to the ER. Patient is drowsy not giving much of a history. 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 Chemo/RT with Cisplatin and RT and Ethyol. RT completed 02/28/09. Past Surgical History: Past Surgical History: Procedure Laterality Date NECK SURGERY 2008 for cancer INGUINAL HERNIA REPAIR 1988 REMOVAL CATARACT (PEM) Bilateral VASECTOMY Allergies: No Known Allergies Medications: Patient's Medications New Prescriptions No medications on file Previous Medications [id number] (EXCEDRIN PO) Take by mouth. DUTASTERIDE (AVODART) 0.5 MG CAPSULE Take 1 capsule by mouth daily. MULTIPLE VITAMINS-MINERALS (CENTRUM SILVER 50+MEN PO) Take by mouth. [id number] (TRIBENZOR) 20-5-12.5 MG TABLET Take by mouth. PANTOPRAZOLE SODIUM 40 MG PACK Take 1 packet by mouth every morning before breakfast. am PREDNISONE 10 MG TABLET 4 tabs po daily x 3 days, 3 tabs po daily x 3 days, 2 tabs po daily x 3 days, 1 tab po daily x 3 days, then discontinue ROSUVASTATIN (CRESTOR) 5 MG TABLET Take 1 tablet by mouth daily. SULINDAC 150 MG TABLET Take 1 tablet by mouth 2 times daily. SUMATRIPTAN 50 MG TABLET Take 1 tablet by mouth Every 2 hours as needed. TESTOSTERONE 25 MG/2.5GM (1%) GEL GEL Place 2.5 g on skin daily. THIAMINE 100 MG TABLET Take 1 tablet by mouth daily. TRAMADOL 50 MG TABLET Take 1 tablet by mouth 3 times daily as needed. VALSARTAN 160 MG TABLET Take 1 tablet by mouth daily. Modified Medications No medications on file Discontinued Medications No medications on file Family History: Family History Problem Relation Age of Onset No known problems Mother Heart Disease - Other Father Heart Disease - Other Brother Heart Disease - Other Other Coronary Artery Disease Other Social History: Social History Socioeconomic History Marital status: Spouse name: Not on file Number of children: Not on file Years of education: Not on file Highest education level: Not on file Occupational History Not on file Tobacco Use Smoking status: Former Types: Cigarettes Smokeless tobacco: Never Vaping Use Vaping status: Never Used Substance and Sexual Activity Alcohol use: No Drug use: No Sexual activity: Not on file Other Topics Concern Not on file Social History Narrative Not on file Social Determinants of Health Financial Resource Strain: Not on file Food Insecurity: No Food Insecurity (04/19/2023) Hunger Vital Sign Worried About Running Out of Food in the Last Year: Never true Ran Out of Food in the Last Year: Never true Transportation Needs: No Transportation Needs (04/19/2023) PRAPARE - Transportation Lack of Transportation (Medical): No Lack of Transportation (Non-Medical): No Physical Activity: Not on file Stress: Not on file Social Connections: Not on file Intimate Partner Violence: Not At Risk (04/19/2023) Humiliation, Afraid, Rape, and Kick questionnaire Fear of Current or Ex-Partner: No Emotionally Abused: No Physically Abused: No Sexually Abused: No Housing Stability: Low Risk (04/19/2023) Housing Stability Vital Sign Unable to Pay for Housing in the Last Year: No Number of Places Lived in the Last Year: 1 Unstable Housing in the Last Year: No Physical Exam: Physical Exam Vitals and nursing note reviewed. Constitutional: Appearance: He is ill-appearing. Eyes: Conjunctiva/sclera: Conjunctivae normal. Cardiovascular: Rate and Rhythm: Normal rate and regular rhythm. Pulses: Normal pulses. Heart sounds: Normal heart sounds. Pulmonary: Effort: Pulmonary effort is normal. Breath sounds: Normal breath sounds. Abdominal: General: Bowel sounds are normal. Palpations: Abdomen is soft. Skin: General: Skin is warm. Capillary Refill: Capillary refill takes less than 2 seconds. Neurological: Mental Status: He is alert. GCS: GCS eye subscore is 3. GCS verbal subscore is 4. GCS motor subscore is 5. Vital Signs During ED Visit Patient Vitals for the past 24 hrs: BP Temp Temp src Pulse Resp SpO2 Weight 05/24/23 2300 97/56 -- -- 69 24 94 % -- 05/24/23 2200 109/59 -- -- 72 20 94 % -- 05/24/23 1950 -- -- -- -- -- 97 % -- 05/24/231928 -- -- -- 84 -- (!) 88 % -- 05/24/231927 -- -- -- 85 -- (!) 75 % -- 05/24/231926 (!) 174/92 -- -- 86 -- (!) 78 % -- 05/24/231919 (!) 162/92 99.5 F (37.5 C) Oral 76 16 (!) 69 % -- 05/24/231916 -- -- -- -- -- -- 73.7 kg (162 lb 6.4 oz) Orders/Results: Orders Placed This Encounter BLOOD CULTURE, PERIPHERAL 1ST SITE BLOOD CULTURE, PERIPHERAL 2ND SITE XR CHEST [address] PE STUDY Troponin I, High sensitivity LACTATE, BLOOD LACTATE, BLOOD CBC, EDIF, PLATELET COMPREHENSIVE METABOLIC PANEL MAGNESIUM PTT PROTIME-INR B-TYPE NATRIURETIC PEPTIDE (BRAIN) SEDIMENTATION RATE, AUTOMATED C REACTIVE PROTEIN PROCALCITONIN OXYGEN BIPAP ECG TYPE AND SCREEN - POSSIBLE TRANSFUSION DISCONTD: Sodium chloride 0.9% IV solution 250 mL DISCONTD: Ipratropium-albuterol (DUONEB) 0.5-2.5 (3) MG/3ML nebulizer solution 3 mL Ipratropium-albuterol (DUONEB) 0.5-2.5 (3) MG/3ML nebulizer solution 3 mL Pantoprazole (PROTONIX) injection 40 mg Ondansetron 4mg/2ml (ZOFRAN) injection 4 mg Sodium chloride 0.9% IV solution iohexol (OMNIPAQUE) 350 MG/ML injection 75 mL Sodium chloride 0.9% IV solution 75 mL levoFLOXacin (LEVAQUIN) 750 mg in dextrose 5% premix IVPB ceFEPIme (MAXIPIME) 2 g in sodium chloride 0.9% (MB PLUS) 100 mL (total volume) IVPB ceFEPIme (MAXIPIME) 2 g in sodium chloride 0.9% (MB PLUS) 100 mL (total volume) IVPB [facility] STREP PNEUMONIAE ANTIGEN, URINE URINALYSIS, MACRO Results for orders placed or performed during the hospital encounter of 05/24/23 TROPONIN I, HIGH SENSITIVITY Result Value Ref Range TROPONIN I, HIGH SENSITIVITY 14 0 - 20 pg/mL LACTATE, BLOOD Result Value Ref Range LACTATE 1.5 0.7 - 2.0 mmol/L CBC, EDIF, PLATELET Result Value Ref Range WBC (WHITE BLOOD COUNT) 21.7 (H) 3.6 - 11.0 10*3/uL RBC 5.07 4.0 - 6.1 10*6/uL HEMOGLOBIN (HGB) 15.2 14.0 - 18.0 G/DL HEMATOCRIT (HCT) 45.4 42.0 - 52.0 % MEAN CELL VOLUME 89.6 80.0 - 100.0 FL Mean Cell HGB 29.9 26.0 - 35.0 PG MEAN CELL HGB CONCENTRATION 33.4 27.0 - 37.0 G/DL RBC DISTRIBUTION 15.5 (H) 11.5 - 14.5 % PLATELET COUNT 272 130 - 400 10*3/uL MEAN PLATELET VOLUME 8.6 7.4 - 11.0 FL DIFFERENTIAL TYPE AUTO DIFF % NEUTROPHILS 91.0 (H) 37.0 - 75.0 % LYMPHOCYTE 1.6 (L) 20.0 - 55.0 % MONOCYTE % 7.1 0.0 - 10.0 % EOSINOPHIL % 0.2 0.0 - 11.0 % BASOPHIL % 0.1 0.0 - 2.0 % Absolute Neutrophil Count 19.7 (H) 1.4 - 6.5 10*3/uL LYMPHOCYTES, ABSOLUTE 0.3 (L) 1.2 - 3.4 10*3/uL MONOCYTES, ABSOLUTE 1.5 (H) 0.0 - 0.7 10*3/uL ABSOLUTE EOSINOPHIL COUNT 0.0 0.0 - 0.7 10*3/uL ABSOLUTE BASOPHIL COUNT 0.0 0.0 - 0.2 10*3/uL COMPREHENSIVE METABOLIC PANEL Result Value Ref Range Glucose 122 (H) 70 - 100 MG/DL BUN 33 (H) 7 - 20 MG/DL CREATININE SERUM 0.70 0.70 - 1.20 MG/DL SODIUM 137 137 - 145 MMOL/L POTASSIUM 4.2 3.5 - 5.1 MMOL/L CHLORIDE 95 (L) 98 - 107 MMOL/L CALCIUM 8.7 8.4 - 10.2 MG/DL PROTEIN, TOTAL 6.3 6.3 - 8.2 GM/DL Albumin 4.0 3.5 - 5.0 G/dl BILIRUBIN, TOTAL 1.0 0.2 - 1.3 MG/DL AST 32 17 - 59 IU/L ALKALINE PHOSPHATASE 96 38 - 126 IU/L CARBON DIOXIDE (CO2) 37 (H) 22 - 30 MMOL/L A/G Ratio 1.7 RATIO ALT 24 <50 IU/L ESTIMATED GFR, NON AMER 118 ml/min/1.73sq.m ESTIMATED GFR, 143 ml/min/1.73sq.m GFR COMMENT Average GFR for 70+ years old = 75. MAGNESIUM Result Value Ref Range MAGNESIUM 2.0 1.6 - 2.3 MG/DL PTT Result Value Ref Range PTT 26.8 22.4 - 34.7 SEC PROTIME-INR Result Value Ref Range PT 13.9 11.8 - 14.4 SEC INR 1.05 0.85 - 1.10 B-TYPE NATRIURETIC PEPTIDE (BRAIN) Result Value Ref Range BRAIN NATRIURETIC PEPTIDE 42 0 - 100 pg/mL SEDIMENTATION RATE, AUTOMATED Result Value Ref Range SEDIMENTATION RATE AUTOMATED 15 0 - 20 MM/HR C REACTIVE PROTEIN Result Value Ref Range C-Reactive Protein 57.0 (H) 0 - 10 MG/L PROCALCITONIN Result Value Ref Range PROCALCITONIN 0.09 0.00 - 0.25 ng/mL TYPE AND SCREEN - POSSIBLE TRANSFUSION Result Value Ref Range EXPIRATION DATE 05/27/2023,2359 ABO/RH(D) A POSITIVE ANTIBODY SCREEN NEGATIVE ARM BAND NUMBER [id number] ARTERIAL BLOOD GAS Result Value Ref Range SAMPLE SITE RIGHT RADIAL ALLENS TEST POSITIVE PATIENT PO2 SETTINGS 100% NRB MASK pH Arterial 7.45 7.350 - 7.450 pCO2 Arterial 53 (H) 35 - 45 mmHg pO2 Arterial 92 80 - 100 mmHg HCO3 36.8 (H) 22 - 26 mEq/L Base Excess 10.7 (H) 0 - 2 mEq/L CTHB 14.8 g/dl % O2 HGB 95.5 % sO2 (O2 Saturation) 98.5 95 - 100 % Carboxyhemoglobin 1.8 % MetHB Arterial 1.2 % [facility] Result Value Ref Range Legionella Urinary Antigen, serogroup 1 NEGATIVE NEGATIVE STREP PNEUMONIAE ANTIGEN, URINE Result Value Ref Range STREP PNEUMONIAE ANTIGEN, URINE NEGATIVE NEGATIVE URINALYSIS, MACRO Result Value Ref Range COLOR, URINE YELLOW YELLOW APPEARANCE, URINE CLEAR CLEAR Specific Plato, Urine 1.020 1.010 - 1.025 PH URINE 7.5 (H) 5.0 - 7.0 Urine Protein NEGATIVE NEGATIVE mg/dl GLUCOSE, URINE NEGATIVE NEGATIVE mg/dl KETONES, URINE NEGATIVE NEGATIVE mg/dl BILIRUBIN, URINE NEGATIVE NEGATIVE BLOOD, URINE DIPSTICK NEGATIVE NEGATIVE NITRITES, URINE NEGATIVE NEGATIVE UROBILINOGEN, URINE 1.0 0.2 - 1.0 E.U./dL LEUKOCYTE ESTERASE, URINE NEGATIVE NEGATIVE Radiographic Imaging CT PE STUDY Final Result IMPRESSION: 1. No change in the right lower lung bronchiectasis with mild to moderate mucous plugging. 2. Mild left basilar subpleural subsegmental atelectasis. 3. Mild underlying emphysema. 4. Air-filled mildly distended proximal esophagus could be a sign of achalasia or presbyesophagus, for example. XR CHEST 1 VIEW PORTABLE Final Result IMPRESSION: Mild bibasilar atelectasis. Procedures: Procedures Moderate Sedation Procedure: No ED Summary/MDM Medical Decision Making Amount and/or Complexity of Data Reviewed Labs: ordered. Radiology: ordered. ECG/medicine tests: ordered and independent interpretation performed. Details: EKG sinus rhythm with sinus arrhythmia rate 86 CT interval 158 QRS 84 QTC 421 no acute ischemic changes Risk Prescription drug management. Decision regarding hospitalization. Risk Details: On arrival the patient was 67% on room air, non-rebreather was applied after about 40 minutes patient's mental status returned back to baseline. The patient had no new complaints when reassessed. I discussed the findings with pulmonology Dr. Maria who recommended Levaquin and cefepime admit to telemetry service. Clinical Impression: 1. Bronchiectasis with acute exacerbation 2. Hemoptysis 3. Acute respiratory failure with hypoxia No follow-ups on file. New Prescriptions No medications on file Discontinued Medications No medications on file An After Visit Summary was printed and given to the patient with above information. . . Juan Gomez MD 05/24/[id number] Gomez to cart side Initial SP)2 in rom #17 69-72% on room air. Rt Chowdhury contacted and made aware of need for RT support for patient. Patient moved to room #8 and placed on 02 @ 15lpm per NRB. Dr Gomez cart side at that time and verbal orders given. Rt Chowdhury made aware Dr Ramirez would like BIPAP and ABGS will be down in 6 mins documented in this encounter [facility] 05-24-2023 Emergency department Note Per sepsis protocol IV bolus not needed at this time Pts lactic is 1.5, SBP [address] Gomez start pt on a 125ml/hr maintenance fluids [facility] 05-24-2023 Physician Emergency department Note Emergency Department Report [facility] EMERGENCY DEPARTMENT Service Date:.05/24/23 PCP: Gunjan Godoy Chief Complaint: Chief Complaint Patient presents with Cough Fever Per , he has been terribly tired for the past couple of days. He has a peg tube placed due to throat cancer and he aspirates a lot. I think he has pneumonia again says fever 102 fever at home and increased weakness. Upon placing sPo2 of patient- pt is 69% with good waveform. Pt is not tachypneic and breathing shallow. Pt has frequent histories of aspiration pneumonia HPI Amy Sun is a 72 y.o. male presents to the ED today due to possible aspiration. History initially given by the patient's the patient has a history of lingular cancer has a PEG tube and has history of aspiration pneumonia. She states he has having a coughing attack with blood in the mucus. He then became more somnolent at that time she brought him to the ER. Patient is drowsy not giving much of a history. 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 Chemo/RT with Cisplatin and RT and Ethyol. RT completed 02/28/09. Past Surgical History: Past Surgical History: Procedure Laterality Date NECK SURGERY 2008 for cancer INGUINAL HERNIA REPAIR 1988 REMOVAL CATARACT (PEM) Bilateral VASECTOMY Allergies: No Known Allergies Medications: Patient's Medications New Prescriptions No medications on file Previous Medications [id number] (EXCEDRIN PO) Take by mouth. DUTASTERIDE (AVODART) 0.5 MG CAPSULE Take 1 capsule by mouth daily. MULTIPLE VITAMINS-MINERALS (CENTRUM SILVER 50+MEN PO) Take by mouth. [id number] (TRIBENZOR) 20-5-12.5 MG TABLET Take by mouth. PANTOPRAZOLE SODIUM 40 MG PACK Take 1 packet by mouth every morning before breakfast. am PREDNISONE 10 MG TABLET 4 tabs po daily x 3 days, 3 tabs po daily x 3 days, 2 tabs po daily x 3 days, 1 tab po daily x 3 days, then discontinue ROSUVASTATIN (CRESTOR) 5 MG TABLET Take 1 tablet by mouth daily. SULINDAC 150 MG TABLET Take 1 tablet by mouth 2 times daily. SUMATRIPTAN 50 MG TABLET Take 1 tablet by mouth Every 2 hours as needed. TESTOSTERONE 25 MG/2.5GM (1%) GEL GEL Place 2.5 g on skin daily. THIAMINE 100 MG TABLET Take 1 tablet by mouth daily. TRAMADOL 50 MG TABLET Take 1 tablet by mouth 3 times daily as needed. VALSARTAN 160 MG TABLET Take 1 tablet by mouth daily. Modified Medications No medications on file Discontinued Medications No medications on file Family History: Family History Problem Relation Age of Onset No known problems Mother Heart Disease - Other Father Heart Disease - Other Brother Heart Disease - Other Other Coronary Artery Disease Other Social History: Social History Socioeconomic History Marital status: Spouse name: Not on file Number of children: Not on file Years of education: Not on file Highest education level: Not on file Occupational History Not on file Tobacco Use Smoking status: Former Types: Cigarettes Smokeless tobacco: Never Vaping Use Vaping status: Never Used Substance and Sexual Activity Alcohol use: No Drug use: No Sexual activity: Not on file Other Topics Concern Not on file Social History Narrative Not on file Social Determinants of Health Financial Resource Strain: Not on file Food Insecurity: No Food Insecurity (04/19/2023) Hunger Vital Sign Worried About Running Out of Food in the Last Year: Never true Ran Out of Food in the Last Year: Never true Transportation Needs: No Transportation Needs (04/19/2023) PRAPARE - Transportation Lack of Transportation (Medical): No Lack of Transportation (Non-Medical): No Physical Activity: Not on file Stress: Not on file Social Connections: Not on file Intimate Partner Violence: Not At Risk (04/19/2023) Humiliation, Afraid, Rape, and Kick questionnaire Fear of Current or Ex-Partner: No Emotionally Abused: No Physically Abused: No Sexually Abused: No Housing Stability: Low Risk (04/19/2023) Housing Stability Vital Sign Unable to Pay for Housing in the Last Year: No Number of Places Lived in the Last Year: 1 Unstable Housing in the Last Year: No Physical Exam: Physical Exam Vitals and nursing note reviewed. Constitutional: Appearance: He is ill-appearing. Eyes: Conjunctiva/sclera: Conjunctivae normal. Cardiovascular: Rate and Rhythm: Normal rate and regular rhythm. Pulses: Normal pulses. Heart sounds: Normal heart sounds. Pulmonary: Effort: Pulmonary effort is normal. Breath sounds: Normal breath sounds. Abdominal: General: Bowel sounds are normal. Palpations: Abdomen is soft. Skin: General: Skin is warm. Capillary Refill: Capillary refill takes less than 2 seconds. Neurological: Mental Status: He is alert. GCS: GCS eye subscore is 3. GCS verbal subscore is 4. GCS motor subscore is 5. Vital Signs During ED Visit Patient Vitals for the past 24 hrs: BP Temp Temp src Pulse Resp SpO2 Weight 05/24/23 2300 97/56 -- -- 69 24 94 % -- 05/24/23 2200 109/59 -- -- 72 20 94 % -- 05/24/23 1950 -- -- -- -- -- 97 % -- 05/24/231928 -- -- -- 84 -- (!) 88 % -- 05/24/231927 -- -- -- 85 -- (!) 75 % -- 05/24/231926 (!) 174/92 -- -- 86 -- (!) 78 % -- 05/24/231919 (!) 162/92 99.5 F (37.5 C) Oral 76 16 (!) 69 % -- 05/24/231916 -- -- -- -- -- -- 73.7 kg (162 lb 6.4 oz) Orders/Results: Orders Placed This Encounter BLOOD CULTURE, PERIPHERAL 1ST SITE BLOOD CULTURE, PERIPHERAL 2ND SITE XR CHEST [address] PE STUDY Troponin I, High sensitivity LACTATE, BLOOD LACTATE, BLOOD CBC, EDIF, PLATELET COMPREHENSIVE METABOLIC PANEL MAGNESIUM PTT PROTIME-INR B-TYPE NATRIURETIC PEPTIDE (BRAIN) SEDIMENTATION RATE, AUTOMATED C REACTIVE PROTEIN PROCALCITONIN OXYGEN BIPAP ECG TYPE AND SCREEN - POSSIBLE TRANSFUSION DISCONTD: Sodium chloride 0.9% IV solution 250 mL DISCONTD: Ipratropium-albuterol (DUONEB) 0.5-2.5 (3) MG/3ML nebulizer solution 3 mL Ipratropium-albuterol (DUONEB) 0.5-2.5 (3) MG/3ML nebulizer solution 3 mL Pantoprazole (PROTONIX) injection 40 mg Ondansetron 4mg/2ml (ZOFRAN) injection 4 mg Sodium chloride 0.9% IV solution iohexol (OMNIPAQUE) 350 MG/ML injection 75 mL Sodium chloride 0.9% IV solution 75 mL levoFLOXacin (LEVAQUIN) 750 mg in dextrose 5% premix IVPB ceFEPIme (MAXIPIME) 2 g in sodium chloride 0.9% (MB PLUS) 100 mL (total volume) IVPB ceFEPIme (MAXIPIME) 2 g in sodium chloride 0.9% (MB PLUS) 100 mL (total volume) IVPB [facility] STREP PNEUMONIAE ANTIGEN, URINE URINALYSIS, MACRO Results for orders placed or performed during the hospital encounter of 05/24/23 TROPONIN I, HIGH SENSITIVITY Result Value Ref Range TROPONIN I, HIGH SENSITIVITY 14 0 - 20 pg/mL LACTATE, BLOOD Result Value Ref Range LACTATE 1.5 0.7 - 2.0 mmol/L CBC, EDIF, PLATELET Result Value Ref Range WBC (WHITE BLOOD COUNT) 21.7 (H) 3.6 - 11.0 10*3/uL RBC 5.07 4.0 - 6.1 10*6/uL HEMOGLOBIN (HGB) 15.2 14.0 - 18.0 G/DL HEMATOCRIT (HCT) 45.4 42.0 - 52.0 % MEAN CELL VOLUME 89.6 80.0 - 100.0 FL Mean Cell HGB 29.9 26.0 - 35.0 PG MEAN CELL HGB CONCENTRATION 33.4 27.0 - 37.0 G/DL RBC DISTRIBUTION 15.5 (H) 11.5 - 14.5 % PLATELET COUNT 272 130 - 400 10*3/uL MEAN PLATELET VOLUME 8.6 7.4 - 11.0 FL DIFFERENTIAL TYPE AUTO DIFF % NEUTROPHILS 91.0 (H) 37.0 - 75.0 % LYMPHOCYTE 1.6 (L) 20.0 - 55.0 % MONOCYTE % 7.1 0.0 - 10.0 % EOSINOPHIL % 0.2 0.0 - 11.0 % BASOPHIL % 0.1 0.0 - 2.0 % Absolute Neutrophil Count 19.7 (H) 1.4 - 6.5 10*3/uL LYMPHOCYTES, ABSOLUTE 0.3 (L) 1.2 - 3.4 10*3/uL MONOCYTES, ABSOLUTE 1.5 (H) 0.0 - 0.7 10*3/uL ABSOLUTE EOSINOPHIL COUNT 0.0 0.0 - 0.7 10*3/uL ABSOLUTE BASOPHIL COUNT 0.0 0.0 - 0.2 10*3/uL COMPREHENSIVE METABOLIC PANEL Result Value Ref Range Glucose 122 (H) 70 - 100 MG/DL BUN 33 (H) 7 - 20 MG/DL CREATININE SERUM 0.70 0.70 - 1.20 MG/DL SODIUM 137 137 - 145 MMOL/L POTASSIUM 4.2 3.5 - 5.1 MMOL/L CHLORIDE 95 (L) 98 - 107 MMOL/L CALCIUM 8.7 8.4 - 10.2 MG/DL PROTEIN, TOTAL 6.3 6.3 - 8.2 GM/DL Albumin 4.0 3.5 - 5.0 G/dl BILIRUBIN, TOTAL 1.0 0.2 - 1.3 MG/DL AST 32 17 - 59 IU/L ALKALINE PHOSPHATASE 96 38 - 126 IU/L CARBON DIOXIDE (CO2) 37 (H) 22 - 30 MMOL/L A/G Ratio 1.7 RATIO ALT 24 <50 IU/L ESTIMATED GFR, NON AMER 118 ml/min/1.73sq.m ESTIMATED GFR, 143 ml/min/1.73sq.m GFR COMMENT Average GFR for 70+ years old = 75. MAGNESIUM Result Value Ref Range MAGNESIUM 2.0 1.6 - 2.3 MG/DL PTT Result Value Ref Range PTT 26.8 22.4 - 34.7 SEC PROTIME-INR Result Value Ref Range PT 13.9 11.8 - 14.4 SEC INR 1.05 0.85 - 1.10 B-TYPE NATRIURETIC PEPTIDE (BRAIN) Result Value Ref Range BRAIN NATRIURETIC PEPTIDE 42 0 - 100 pg/mL SEDIMENTATION RATE, AUTOMATED Result Value Ref Range SEDIMENTATION RATE AUTOMATED 15 0 - 20 MM/HR C REACTIVE PROTEIN Result Value Ref Range C-Reactive Protein 57.0 (H) 0 - 10 MG/L PROCALCITONIN Result Value Ref Range PROCALCITONIN 0.09 0.00 - 0.25 ng/mL TYPE AND SCREEN - POSSIBLE TRANSFUSION Result Value Ref Range EXPIRATION DATE 05/27/2023,2359 ABO/RH(D) A POSITIVE ANTIBODY SCREEN NEGATIVE ARM BAND NUMBER [id number] ARTERIAL BLOOD GAS Result Value Ref Range SAMPLE SITE RIGHT RADIAL ALLENS TEST POSITIVE PATIENT PO2 SETTINGS 100% NRB MASK pH Arterial 7.45 7.350 - 7.450 pCO2 Arterial 53 (H) 35 - 45 mmHg pO2 Arterial 92 80 - 100 mmHg HCO3 36.8 (H) 22 - 26 mEq/L Base Excess 10.7 (H) 0 - 2 mEq/L CTHB 14.8 g/dl % O2 HGB 95.5 % sO2 (O2 Saturation) 98.5 95 - 100 % Carboxyhemoglobin 1.8 % MetHB Arterial 1.2 % [facility] Result Value Ref Range Legionella Urinary Antigen, serogroup 1 NEGATIVE NEGATIVE STREP PNEUMONIAE ANTIGEN, URINE Result Value Ref Range STREP PNEUMONIAE ANTIGEN, URINE NEGATIVE NEGATIVE URINALYSIS, MACRO Result Value Ref Range COLOR, URINE YELLOW YELLOW APPEARANCE, URINE CLEAR CLEAR Specific Plato, Urine 1.020 1.010 - 1.025 PH URINE 7.5 (H) 5.0 - 7.0 Urine Protein NEGATIVE NEGATIVE mg/dl GLUCOSE, URINE NEGATIVE NEGATIVE mg/dl KETONES, URINE NEGATIVE NEGATIVE mg/dl BILIRUBIN, URINE NEGATIVE NEGATIVE BLOOD, URINE DIPSTICK NEGATIVE NEGATIVE NITRITES, URINE NEGATIVE NEGATIVE UROBILINOGEN, URINE 1.0 0.2 - 1.0 E.U./dL LEUKOCYTE ESTERASE, URINE NEGATIVE NEGATIVE Radiographic Imaging CT PE STUDY Final Result IMPRESSION: 1. No change in the right lower lung bronchiectasis with mild to moderate mucous plugging. 2. Mild left basilar subpleural subsegmental atelectasis. 3. Mild underlying emphysema. 4. Air-filled mildly distended proximal esophagus could be a sign of achalasia or presbyesophagus, for example. XR CHEST 1 VIEW PORTABLE Final Result IMPRESSION: Mild bibasilar atelectasis. Procedures: Procedures Moderate Sedation Procedure: No ED Summary/MDM Medical Decision Making Amount and/or Complexity of Data Reviewed Labs: ordered. Radiology: ordered. ECG/medicine tests: ordered and independent interpretation performed. Details: EKG sinus rhythm with sinus arrhythmia rate 86 CT interval 158 QRS 84 QTC 421 no acute ischemic changes Risk Prescription drug management. Decision regarding hospitalization. Risk Details: On arrival the patient was 67% on room air, non-rebreather was applied after about 40 minutes patient's mental status returned back to baseline. The patient had no new complaints when reassessed. I discussed the findings with pulmonology Dr. Maria who recommended Levaquin and cefepime admit to telemetry service. Clinical Impression: 1. Bronchiectasis with acute exacerbation 2. Hemoptysis 3. Acute respiratory failure with hypoxia No follow-ups on file. New Prescriptions No medications on file Discontinued Medications No medications on file An After Visit Summary was printed and given to the patient with above information. . . Juan Gomez MD 05/24/23 5045 [facility] 05-24-[address] Gomez to cart side [facility] 05-24-2023 Emergency department Note Initial SP)2 in rom #17 69-72% on room air. Rt Chowdhury contacted and made aware of need for RT support for patient. Patient moved to room #8 and placed on 02 @ 15lpm per NRB. Dr Gomez cart side at that time and verbal orders given. [facility] 05-24-2023 Emergency department Note Rt Chowdhury made aware Dr Ramirez would like BIPAP and ABGS will be down in 6 mins [facility] 05-21-2023 History of Present illness Narrative Of note, patient does have an appointment with [facility] RD on 4/11. OUTPATIENT ONCOLOGY DIETITIAN Received referral from Dr Jim Holder for tube feeding evaluation/recommendations. Upon chart review see that patient's PEG was placed by a [facility] physician and the majority of his care is received at [facility]. Discussed with Dr Holder who agrees that it makes sense for the patient to return to [facility] for dietitian evaluation/potential changes in his tube feeding regime (will need following provider to place orders for any tube feeding changes.) Have closed the referral to [place] [facility]. Dr Holder will refer to patient [facility] dietitian. No patient contact planned. Alfreda Alvarenga MS, RDN, TRANSIT SURVEY WORKER, LD Lead Oncology Outpatient/BMT Dietitian [phone] documented in this encounter [facility] 05-20-2023 Miscellaneous Notes Patient called stating he would like to have the appt with Dr. Albert tomorrow. He would like to talk with Dr. Albert about his difficulty swallowing. Images from the original note were not included. Called pt regarding message below from Dr Albert: Tasha Albert MD Derricoatte, Khaleena; Catherine Pena, DANIEL It looks like this patient was scheduled with me for oropharyngeal dysphagia (history of throat cancer) I don't really specialize in oropharyngeal dysphagia, my expertise is in the esophageal phase I would typically recommend a modified barium swallow to evaluate this with speech pathology - they are the experts in the oropharyngeal phase issue Does the patient want to reschedule for a coordinated visit with them, since I can't really help with his issue? Just want to make sure since he is driving from [facility] Pt did not answer, LVM for pt to call office back documented in this encounter [facility] 05-19-2023 History of Present illness Narrative [facility] [address] [facility] [place] [address] [facility] [id number] Dept: [phone] MD Amy Joyce 72 y.o. male Patient presents with a chief complaint of <9>Pharyngoesophageal dysphagia (3mo f/u dysphagia, FTT) Temp 98.1 F (36.7 C) (Temporal) Ht 6' Wt 76.6 kg (168 lb 12.8 oz) BMI 22.89 kg/m History of Presenting Illness: The patient/caregiver reports a history of complaint with the following features: He continues with weight loss, but has improved energy on tube feeds and avoidance of oral intake. He has been advised consideration of laryngotracheal separation by Dr. Irby of pulmonary. He has not been able to have a formal dietary consultation for a caloric recommendation and just recently discovered that there are high calorie tube feeds available, and these have been recently started. He reports that he is feeling better overall. Review of systems covering 10 systems is reviewed and pertinent positives and negatives are noted as above. Past Medical History: Diagnosis Date Arthritis Benign prostatic hyperplasia Cancer (HCC) 2009 Tongue Chronic kidney disease (CKD) stage G1/A2, glomerular filtration rate (GFR) equal to or greater than 90 mL/min/1.73 square meter and albuminuria creatinine ratio between 30-299 mg/g ED (erectile dysfunction) Edema leg bilateral GERD (gastroesophageal reflux disease) Hepatic steatosis Hyperlipidemia Hypertension Insomnia Prediabetes Current Outpatient Medications: afawhrkkzy-kqDBFMRmzp-eyrv (Tribenzor) 40-5-25 mg Tab, Take 1 tablet by mouth daily ., Disp: , Rfl: rosuvastatin (CRESTOR) 5 MG tablet, Take 1 (one) tablet (5 mg total) by mouth daily ., Disp: , Rfl: testosterone (ANDROGEL) 1 % (50 mg/5 gram) GlPk, Place 0.05 g on the skin daily ., Disp: , Rfl: traMADoL (ULTRAM) 50 mg tablet, Take 1 (one) tablet (50 mg total) by mouth every 4 (four) hours as needed for pain ., Disp: , Rfl: valsartan (DIOVAN) 160 MG tablet, Take 1 (one) tablet (160 mg total) by mouth daily ., Disp: , Rfl: albuterol 90 mcg/actuation inhaler, Inhale 2 (two) puffs every 4 (four) hours as needed . (Patient not taking: Reported on 08/19/2022 .), Disp: 6.7 g, Rfl: 0 dutasteride (AVODART) 0.5 mg capsule, dutasteride 0.5 mg capsule, Disp: , Rfl: esomeprazole (NEXIUM) 40 MG capsule, Take 1 (one) capsule (40 mg total) by mouth every morning before breakfast ., Disp: , Rfl: omeprazole (PRILOSEC) 20 MG capsule, Take 1 (one) capsule (20 mg total) by mouth daily ., Disp: , Rfl: pilocarpine (SALAGEN) 5 MG tablet, Take 1 (one) tablet (5 mg total) by mouth 3 (three) times a day ., Disp: 90 tablet, Rfl: 11 SUMAtriptan (IMITREX) 50 MG tablet, Take 1 (one) tablet (50 mg total) by mouth every 2 (two) hours as needed for migraine Max of 200 mg in 24hrs, do not treat more than 3 times a week . (Patient not taking: Reported on 05/19/2023 .), Disp: 10 tablet, Rfl: 0 No current facility-administered medications for this visit. No Known Allergies Past Surgical History: Procedure Laterality Date CT COLONOSCOPY 03/25/2022 CT COLONOSCOPY LAPAROSCOPIC INGUINAL HERNIA REPAIR [address] Holder for tongue cancer PEG TUBE PLACEMENT 04/04/2023 VASECTOMY Social History Socioeconomic History Marital status: Tobacco Use Smoking status: Former Years: 48 Types: Cigarettes Quit date: 2008 Years since quittin.2 Passive exposure: Past Smokeless tobacco: Never Vaping Use Vaping Use: Never used Substance and Sexual Activity Alcohol use: Not Currently Drug use: Not Currently Family History Problem Relation Age of Onset Coronary artery disease Father Coronary artery disease Brother PHYSICAL EXAM: The patient was examined today 05/19/2023 with findings as follows: CONSTITUTIONAL: General Appearance: well-appearing, nontoxic, alert, no acute distress Communication: understanding at normal conversational tones, normal voicing, speech intelligible HEAD/FACE: Head: atraumatic, normocephalic, no lesions Facial Inspection: no lesions, healthy skin Facial Strength: motor strength normal, symmetric strength, symmetric movement Sinuses: no sinus tenderness Salivary Glands: no enlargements of parotid glands, no tenderness of parotid glands, no masses of parotid glands, clear salivary flow on palpation from Stensen's ducts, no duct stones of Stensen's duct, no enlargement of submandibular glands, no tenderness of submandibular glands, no masses of submandibular glands, clear salivary flow from Amadou's ducts, no stones of Post's ducts Temporomandibular Joint: no crepitus with motion, no tenderness on palpation, no trismus, motion symmetric EYES: Pupils: PERRLA, extra-ocular movements intact, no nystagmus, sclera white, no redness of eyes, no watering of eyes EARS: Bilateral External Ears: no pits, no tags Right External Ear: normally formed, no lesions, no mastoid tenderness Left External Ear: normally formed, no lesions, no mastoid tenderness Right External Auditory Canal: normal, healthy skin, no obstructing cerumen, no discharge Left External Auditory Canal: normal, healthy skin, no obstructing cerumen, no discharge Right Tympanic Membrane: normal landmarks, translucent, mobile to pneumatic otoscopy, no perforation Left Tympanic Membrane: normal landmarks, translucent, mobile to pneumatic otoscopy, no perforation Hearing: intact to spoken voice NOSE: Nasal Skin: no lesions, no lacerations, no scars Nasal Dorsum: symmetric with no visible or palpable deformities Nasal Tip: normal symmetric nasal tip, normal nasal valves Nasal Mucosa: normal, pink and moist Septum: not markedly deformed, midline, no exposed vessels, no bleeding, no septal granuloma Turbinates: normal size and conformation Nasopharynx: normal ORAL CAVITY/MOUTH: Lips, teeth, gums: normal lips, normal gums, dentition intact, no dental pain on palpation Oral Mucosa: normal, moist, no lesions Palate: normal hard palate, normal soft palate, symmetric palatal elevation Floor of Mouth: normal floor of mouth Tongue: normal tongue, no lesions, no edema, no masses, normal mucosa, mobile Tonsils: absent Posterior pharynx: adherent thick secretions NECK: Neck: healed excision site right neck, trachea midline, normal range of motion, no cysts or pits, no tenderness to palpation Thyroid: normal thyroid, no enlargement, no tenderness, no nodules LYMPH NODES: Cervical: no palpable lymph node enlargement SKIN: General Appearance: no lesions, warm and dry, normal turgor, no bruising NEUROLOGICAL SYSTEM: Orientation: oriented to time, oriented to place, oriented to person Cranial Nerves: Cranial Nerves II-XII intact, normal facial movement PSYCHIATRIC: Mood and affect: normal mood, normal affect Assessment and Plan: He presents with a significant weight loss in the last year. This has continued since his last visit. This neck lesion has been excised and found to be benign. Referral to oncologic nutrition is offered to help with a calorie count calculation. It is unclear as to why a laryngotracheal separation was suggested, but unless he has progressive decline in pulmonary function, this is likely too extreme a remedy and he is not interested in pursuing this at this time. He was advised to stop his pilocarpine due to concern about aspiration. This has resulted in thick adherent secretions. I would prefer thinner secretions and a suction device to help with better control of oral secretions. The rationale for any prescribed radiographic or endoscopic evaluation, speech therapy evaluation, or other intervention is discussed. The patient and/or caregiver is advised on the risks of dysphagia to include but not limited to potential entry of food into the lungs with impairment of breathing and increased risk of pneumonia, nutritional deficit from inadequate caloric intake, weight loss, fatigue, poor wound healing, and exacerbation of other chronic disease processes. The symptom management of dysphagia specific to the patient's exam findings and complaints such as the avoidance of problem foods, modification of diet, and the practice of taking in small quantities of foods or thickening of liquids, alternating solids and liquids, the use of carbonation and temperature for improved sensory input to reduce aspiration risk is discussed. The patient and/or caregiver is able to state an understanding of these recommendations and is agreeable to the treatment plan. I have spent greater than 45 minutes in today's visit today in discussion with the patient and caregiver, review of records, and care coordination. This excludes any procedures separately billed. 1. Failure to thrive in adult Ambulatory referral to Oncology Dietitian 2. History of tongue cancer Ambulatory referral to Oncology Dietitian 3. Pharyngoesophageal dysphagia Suction oral 4. Xerostomia due to radiotherapy pilocarpine (SALAGEN) 5 MG tablet Return in about 1 year (around 05/18/2024). The patient and/or caregiver is to notify the office if no improvement or worsening of symptoms is noted prior to the scheduled follow-up for sooner evaluation. The patient and/or caregiver is able to state an understanding of these recommendations and is agreeable to the treatment plan. --Jim Holder MD on 05/19/2023 at 12:29 PM An electronic signature was used to authenticate this note. Review of Systems Constitutional: Negative. HENT: Positive for hearing loss and trouble swallowing. Eyes: Negative. Respiratory: Negative. Cardiovascular: Negative. Gastrointestinal: Negative. Endocrine: Negative. Genitourinary: Negative. Musculoskeletal: Negative. Skin: Negative. Allergic/Immunologic: Negative. Neurological: Negative. Hematological: Negative. documented in this encounter [facility] 05-11-2023 Nurse Note Pt given discharge instructions and Ivs removed. PEG tube disconnected. Pt Has his belongings.Transport to [facility] by family No questions. [facility] 05-11-2023 Miscellaneous Notes Pt given discharge instructions and Ivs removed. PEG tube disconnected. Pt Has his belongings.Transport to [facility] by family No questions. Pt has discharge orders. Complete IV meds and per ok not to give Vanc. Patient resting in bed. Assessment unchanged from prior unless otherwise noted in flowsheets. Patient denies any needs. Call light within reach. Patient resting in bed. He requested for tube feeding to be turned off at this time due to complaints of fullness. Residual checked at this time and 10 mls noted. Will resume in AM at lower rate per patient request to see how he tolerates it. Patient denies any other needs. Assessment otherwise unchanged unless noted in flow sheets. Call light within reach. No change in pt condition since the last nursing assessment unless noted in the flowsheets. Patient denies needs. Call light and bedside table within reach. No change in pt condition since the last nursing assessment unless noted in the flowsheets. Patient denies needs. Call light and bedside table within reach. OT consult received and chart reviewed, patient admitted for multifocal pneumonia, per patient and spouse he has been independent with ADLs and reports no difficulty getting up and out of bed, recommend continuing OOB activity during hospital stay, deny need for OT evaluation, will sign off Problem: Adult Inpatient Plan of Care Goal: Plan of Care Review Outcome: Progressing Goal: Patient-Specific Goal (Individualized) Outcome: Progressing Goal: Absence of Hospital-Acquired Illness or Injury Outcome: Progressing Goal: Optimal Comfort and Wellbeing Outcome: Progressing Goal: Readiness for Transition of Care Outcome: Progressing Problem: Skin Injury Risk Increased Goal: Skin Health and Integrity Outcome: Progressing Problem: Pneumonia Goal: Fluid Balance Outcome: Progressing Goal: Resolution of Infection Signs and Symptoms Outcome: Progressing Goal: Effective Oxygenation and Ventilation Outcome: Progressing Sitting up in bed upon this RN arrival to patient room. present and attentive to patient needs at the bedside. Denies needs at this time, call light in reach. documented in this encounter [facility] 05-11-2023 Nurse Note Pt has discharge orders. Complete IV meds and per Dr degroot not to give Vanc. [facility] 05-11-2023 Hospital course Narrative Discharge Summary Summary Time: 05/11/23 1:03 PM Name: Amy Sun Age: 72 y.o. Birthday: 1950 Admit Date: 05/09/2023 7:55 AM Discharge Date: 05/11/2023 Discharge Diagnosis: Principal Problem: Multifocal pneumonia- strict npo. Suspected silent aspiration 2/2 dysphagia/radiation. Off 02 on room air. Cx negative. Complete atb steroid taper. Active Problems: Abnormal glucose- Ha1c. 5.9 Severe protein-calorie malnutrition- nutrition consult. Tube feed Leukocytosis- improving. Elevated troponin I level- trend. echo. LVEF is 65-70%. - diastolic dysfunction. COPD (chronic obstructive pulmonary disease) with acute bronchitis- iv atb. Nebs. steroid. Dysphagia- strict npo. Peg tube. D/w family. Would like to fu [facility]. Referral sent to -- Esophageal & Swallowing Disorders physician Squamous cell carcinoma of tongue--Continue outpatient follow up with [facility] S/P percutaneous endoscopic gastrostomy (PEG) tube placement- GERD (gastroesophageal reflux disease)- PPI Hypoxia- on 3l/nc 80% on room air. pH/PCO2/PO2/HCO3: 7.44/47/76/31.9 (05/08 1030)-- resolved. Other hypotension- elevated lactic acid. Ivf. Atb, steroid, improved with bolus. Resume home meds Elevated alk - check fractionated alk phos. Pending fu pcp. Brief Summary of Hospital Course: Patient presented with hypoxia and increased coughing. He has a history of squamous cell carcinoma of the tongue and underwent radiation in the past. He has dysphagia and a PEG tube. Suspect aspiration. Patient placed on HCAP antibiotic coverage. He is now off of oxygen. He was feeling better. He will be discharged today. Discharge Vital Signs: Blood pressure 104/67, pulse 57, temperature 97.7 F (36.5 C), temperature source Oral, resp. rate 20, height 1.854 m (6' 0.99), weight 76.7 kg (169 lb), SpO2 96%. O2 Sat (%): 96 % (05/10 112) O2 Device: room air (05/10 112) Discharge Labs: Lab Results Component Value Date WBC 15.5 (H) 05/11/2023 HGB 12.8 (L) 05/11/2023 HCT 37.7 (L) 05/11/2023 PLATELET 189 05/11/2023 MCV 88.2 05/11/2023 @LASTMAGNESIUM(1D,2)@ Lab Results Component Value Date INR 1.17 (H) 04/20/2023 INR 1.12 (H) 04/19/2023 INR 1.31 (H) 03/04/2023 PT 15.0 (H) 04/20/2023 PT 14.5 (H) 04/19/2023 PT 16.4 (H) 03/04/2023 Lab Results Component Value Date CREATSERUM 0.60 (L) 05/11/2023 BUN 27 (H) 05/11/2023 SODIUM 137 05/11/2023 POTASSIUM 3.8 05/11/2023 CHLORIDE 104 05/11/2023 CO2 33 (H) 05/11/2023 Lab Results Component Value Date SPGRVTYUR 1.015 05/09/2023 GLUCOSEURINE NEGATIVE 05/09/2023 BILIRUBINURI NEGATIVE 05/09/2023 KETONESURINE NEGATIVE 05/09/2023 NITRITESURIN NEGATIVE 05/09/2023 LEUKOCESTUR NEGATIVE 05/09/2023 PHYSICAL EXAM: General: Patient resting comfortably. Awake. No acute distress. Cardiovascular: Regular rate and rhythm, without murmurs, rubs, or gallops. Respiratory: Bilateral Upper and Lower Lobes without wheezes, rales, or rhonchi, diminished. Abdomen: Soft, rounded, non-tender. Bowel sounds present x4 quadrants. No rebound. No organomegaly or masses noted upon deep palpation. Extremities: No edema, clubbing or cyanosis, pulses palpable 2+ distally. Skin: Warm, Dry, Intact. Discharge Medications: Medication List for when you go home START taking these medications Morning Afternoon Evening Bedtime As Needed levoFLOXacin 750 MG TABS Take 1 tablet by mouth daily for 5 days. Commonly known as: LEVAQUIN Last time this was given: Ask your nurse or doctor predniSONE 10 MG TABS 4 tabs po daily x 3 days, 3 tabs po daily x 3 days, 2 tabs po daily x 3 days, 1 tab po daily x 3 days, then discontinue Commonly known as: DELTASONE CONTINUE taking these medications Morning Afternoon Evening Bedtime As Needed CENTRUM SILVER 50+MEN PO Take by mouth. dutasteride 0.5 MG CAPS Take 1 capsule by mouth daily. Commonly known as: Avodart For diagnoses: Benign prostatic hyperplasia with lower urinary tract symptoms, symptom details unspecified EXCEDRIN PO Take by mouth. pantoprazole Sodium 40 MG PACK Take 1 packet by mouth every morning before breakfast. am Commonly known as: PROTONIX Last time this was given: Ask your nurse or doctor Rosuvastatin 5 MG TABS Take 1 tablet by mouth daily. Commonly known as: Crestor For diagnoses: Hyperlipidemia, unspecified hyperlipidemia type sulindac 150 MG TABS Take 1 tablet by mouth 2 times daily. Commonly known as: CLINORIL SUMAtriptan 50 MG TABS Take 1 tablet by mouth Every 2 hours as needed. Commonly known as: IMITREX Testosterone 25 MG/2.5GM (1%) GEL gel Place 2.5 g on skin daily. For diagnoses: Testicular hypofunction traMADol 50 MG TABS Take 1 tablet by mouth 3 times daily as needed. Commonly known as: ULTRAM For diagnoses: Arthritis Tribenzor 20-5-12.5 MG TABS Take by mouth. Generic drug: [id number] Valsartan 160 MG TABS Take 1 tablet by mouth daily. Commonly known as: DIOVAN For diagnoses: Benign hypertension STOP taking these medications pilocarpine 5 MG TABS Commonly known as: SALAGEN ASK your doctor about these medications Morning Afternoon Evening Bedtime As Needed Thiamine 100 MG TABS Take 1 tablet by mouth daily. Discharge Activity: Resume pre-hospital activities as tolerated. Discharge Diet: Resume pre-hospital diet as tolerated. Discharge Follow-up: Gunjan Godoy MD [address] [facility] [id number] Follow up in 1 week(s) Tasha Albert MD [address] [facility] Department Of Gastroenterology [facility] [id number] Follow up in 2 week(s) Discharge Disposition: Patient will be discharged in stable condition to home Discharge Time: Including assessment, planning, and medication reconciliation was 12 minutes Gregg Brennan CNP completing Discharge Summary for collaborating physician. Please note portions of this note utilized [employer] dictation software, please excuse any typographical or grammatical errors Associated attestation - Cayla Maria MD - 05/11/2023 6:56 PM EDT Patient was seen, examined, and discussed during rounds today. He reports feeling much better, continued to cough and expectorate yellowish whitfield sputum without difficulties, he remains afebrile with stable findings on exam. Discharge medications, recommendations to avoid recurrent aspiration, early treatment of recurrent infections, were all discussed before discharge today with the patient and his . Follow-up was also discussed and time spent on discharge was 22 minutes documented in this encounter [facility] 05-11-2023 Nurse Note Patient resting in bed. Assessment unchanged from prior unless otherwise noted in flowsheets. Patient denies any needs. Call light within reach. [facility] 05-11-2023 Nurse Note Patient resting in bed. He requested for tube feeding to be turned off at this time due to complaints of fullness. Residual checked at this time and 10 mls noted. Will resume in AM at lower rate per patient request to see how he tolerates it. Patient denies any other needs. Assessment otherwise unchanged unless noted in flow sheets. Call light within reach. [facility] 05-10-2023 Nurse Note No change in pt condition since the last nursing assessment unless noted in the flowsheets. Patient denies needs. Call light and bedside table within reach. [facility] 05-10-2023 History of Present illness Narrative Pharmacy to Dose - Vancomycin Progress Note PATIENT: Amy Sun Room/Bed: [facility] Indication: PNA Trough Goal: 15-20 g/mL Current Dose: 1000 mg IV every 8 hours Most Recent Labs: VANCOMYCIN, TROUGH Date Value Ref Range Status 05/10/2023 12.5 (L) 15.0 - 20.0 UG/ML Final CREATININE SERUM Date Value Ref Range Status 05/10/2023 0.67 (L) 0.70 - 1.20 MG/DL Final 05/09/2023 0.70 0.70 - 1.20 MG/DL Final 04/20/2023 0.60 (L) 0.70 - 1.20 MG/DL Final BUN Date Value Ref Range Status 05/10/2023 21 (H) 7 - 20 MG/DL Final 05/09/2023 27 (H) 7 - 20 MG/DL Final 04/20/2023 19 7 - 20 MG/DL Final Patient's CrCl is estimated to be 108 mL/min Assessment and Plan: Based upon review of laboratory results and available patient information, I will take the following action(s): no changes to Vancomycin dose or dosing interval are indicated at this time. A Pharmacist will continue to follow and order drug levels and adjust dosing as clinically appropriate. If necessary, I have modified the orders in IS to reflect the above plan. Please feel free to contact me with any further questions. Junior Pena RPh,PharmD, [facility] Phone: [phone] Date/Time: 05/10/2023 1:34 PM DAILY PROGRESS NOTE Admit Date: 05/09/2023 Date of Evaluation: :14 PM [facility] LOS: 1 day Chief complaint: Multifocal pneumonia SUBJECTIVE: Patient seen and examined. Chart, medications, labs all reviewed. Patient denies all reports of Headache Blurred Vision, Dizziness, Fever, Chills, Nausea, Vomiting, Diarrhea, or Pain. Feeling slightly better today. at bedside Discussed plan. Vital Signs: Blood pressure 139/65, pulse 67, temperature 98.4 F (36.9 C), temperature source Oral, resp. rate 19, height 1.854 m (6' 0.99), weight 76.7 kg (169 lb), SpO2 97%. O2 Sat (%): 97 % (05/09 1143) O2 Device: nasal cannula (05/09 829) Flow (L/min): 3 (05/09 08) Intake and Output: No intake or output data in the 24 hours ending 05/10/23 1314 Daily Weight: Wt Readings from Last 3 Encounters: 05/09/23 76.7 kg (169 lb) 04/22/23 79 kg (174 lb 3.2 oz) 04/20/23 80.2 kg (176 lb 12.8 oz) PHYSICAL EXAM: General: Patient Awake. No acute distress. Cardiovascular: Regular rate and rhythm, without murmurs, rubs, or gallops. Respiratory: Bilateral Upper and Lower Lobes coarse on left side. Abdomen: Soft, rounded, non-tender. Bowel sounds present x4 quadrants. No rebound. No organomegaly or masses noted upon deep palpation. Extremities: No edema, clubbing or cyanosis, pulses palpable 2+ distally. Skin: Warm, Dry, Intact. Neuro: Cranial nerves II-XII grossly intact. No focal deficits Diagnostics: CBC Lab Results Component Value Date/Time WBC 19.9 (H) 05/10/2023 04:50 AM WBC 24.9 (H) 05/09/2023 08:42 AM WBC 9.1 04/20/2023 04:43 AM HGB 13.2 (L) 05/10/2023 04:50 AM HGB 15.0 05/09/2023 08:42 AM HGB 13.5 (L) 04/20/2023 04:43 AM HCT 39.0 (L) 05/10/2023 04:50 AM HCT 43.9 05/09/2023 08:42 AM HCT 40.3 (L) 04/20/2023 04:43 AM PLATELET 183 05/10/2023 04:50 AM PLATELET 249 05/09/2023 08:42 AM PLATELET 204 04/20/2023 04:43 AM Chemistry Lab Results Component Value Date/Time GLUCOSE 140 (H) 05/10/2023 11:41 AM GLUCOSE 152 (H) 05/10/2023 06:13 AM GLUCOSE 166 (H) 05/10/2023 04:50 AM GLUCOSE 144 (H) 05/10/2023 12:53 AM BUN 21 (H) 05/10/2023 04:50 AM BUN 27 (H) 05/09/2023 08:42 AM BUN 19 04/20/2023 04:43 AM CREATSERUM 0.67 (L) 05/10/2023 04:50 AM CREATSERUM 0.70 05/09/2023 08:42 AM CREATSERUM 0.60 (L) 04/20/2023 04:43 AM SODIUM 136 (L) 05/10/2023 04:50 AM SODIUM 134 (L) 05/09/2023 08:42 AM SODIUM 138 04/20/2023 04:43 AM POTASSIUM 4.0 05/10/2023 04:50 AM POTASSIUM 4.0 05/09/2023 08:42 AM POTASSIUM 4.2 04/20/2023 04:43 AM CHLORIDE 101 05/10/2023 04:50 AM CHLORIDE 96 (L) 05/09/2023 08:42 AM CHLORIDE 104 04/20/2023 04:43 AM CO2 33 (H) 05/10/2023 04:50 AM CO2 35 (H) 05/09/2023 08:42 AM CO2 33 (H) 04/20/2023 04:43 AM ALBUMIN 3.3 (L) 05/10/2023 04:50 AM ALBUMIN 4.2 05/09/2023 08:42 AM ALBUMIN 3.4 (L) 04/20/2023 04:43 AM CALCIUM 8.4 05/10/2023 04:50 AM CALCIUM 8.6 05/09/2023 08:42 AM CALCIUM 8.7 04/20/2023 04:43 AM PHOSPHORUS 3.1 05/10/2023 04:50 AM PHOSPHORUS 3.1 04/20/2023 04:43 AM PHOSPHORUS 2.9 04/19/2023 09:34 AM MAGNESIUM 1.9 05/10/2023 04:50 AM MAGNESIUM 2.0 04/20/2023 04:43 AM MAGNESIUM 1.9 04/19/2023 09:34 AM COAG Lab Results Component Value Date/Time PT 15.0 (H) 04/20/2023 04:43 AM PT 14.5 (H) 04/19/2023 09:34 AM PT 16.4 (H) 03/04/2023 04:44 AM INR 1.17 (H) 04/20/2023 04:43 AM INR 1.12 (H) 04/19/2023 09:34 AM INR 1.31 (H) 03/04/2023 04:44 AM ABG Lab Results Component Value Date/Time HCO3 31.9 (H) 05/09/2023 10:30 AM HCO3 33.2 (H) 04/20/2023 04:43 AM PCO2 47 (H) 05/09/2023 10:30 AM PCO2 50 04/20/2023 04:43 AM PO2 76 (L) 05/09/2023 10:30 AM Other notable labs: Relevant microbiologic cultures: Lab Results Component Value Date RESULTCULT NO GROWTH 5 DAYS 04/19/2023 Ct PE: IMPRESSION: 1. No pulmonary embolus identified. 2. Large patchy consolidation within left lower lobe consistent with pneumonia. 3. Evidence for a multifocal bronchiolitis that predominantly involves the right middle and lower lobes. Small peripheral consolidation at the right lung base may be atelectasis or pneumonitis with extensive mucous plugging within the right lower lobe. Recommend correlation with the patient's aspiration risk. 4. Increase in size of a 4.1 cm medial consolidative mass within the right lower lobe adjacent to a large marginal osteophyte. This is suspected to be associated with atelectasis rather than an infiltrative process. Followup imaging in 1-3 months recommended to assess for response to therapy given the multiple findings within the lung parenchyma. 5. Enlarged subcarinal lymph node that can be reevaluated at time of followup imaging. 6. Severe stenosis of the proximal left subclavian artery due to soft plaque. 7. Evidence for pulmonary hypertension. 8. Bilateral renal cysts. IMPRESSION /PLAN: Principal Problem: Multifocal pneumonia- strict npo. Hcap atb. Iv steroid. Follow cultures. Ct pe reviewed. On 3l/nc-- baseline room air. Active Problems: Abnormal glucose- Ha1c. 5.9 Severe protein-calorie malnutrition- nutrition consult. Tube feed Leukocytosis- hcap. Follow cx. Elevated troponin I level- trend. Check echo. LVEF is 65-70%. - diastolic dysfunction. COPD (chronic obstructive pulmonary disease) with acute bronchitis- iv atb. Nebs. Iv steroid. Dysphagia- strict npo. Peg tube. Squamous cell carcinoma of tongue--Continue outpatient follow up with [facility] S/P percutaneous endoscopic gastrostomy (PEG) tube placement- GERD (gastroesophageal reflux disease)- PPI Hypoxia- on 3l/nc 80% on room air. pH/PCO2/PO2/HCO3: 7.44/47/76/31.9 (05/08 1030) Other hypotension- elevated lactic acid. Ivf. Atb, steroid, improved with bolus. Hold htn meds. Elevated alk - check fractionated alk phos. Code Status Full Code I personally spent 8 minutes in the management of this patient, the details of my visit are listed in my documentation above. Associated attestation - Cayla Maria MD - 05/10/2023 7:39 PM EDT I have personally seen and examined Amy Sun and I agree with the physical exam as stated below. I have personally reviewed all available clinical data related to today's encounter including, but not limited to, radiology images and reports, laboratory data, and procedure reports. I have been fully involved in formulation of the assessment and plan and agree with the MICHELLE findings and plan of care as documented. Patient is doing fairly well today, continues to cough and expectorate significant amount of purulent yellow sputum, patient has had history of recurrent aspiration pneumonia, presenting with left lower lobe consolidation in anatomical location that would be consistent with aspiration pneumonia, he has scattered bronchiectatic changes elsewhere that would be consistent with recurrent aspiration injury. He has a history of head and neck cancer status post radiation and known severe dysphagia status post PEG tube, per patient and he has not been attempting to eat or drink recently. Currently he is remaining stable, afebrile, oxygenating well on nasal cannula appears comfortable in no distress, continued leukocytosis with a white count of 20 other labs are stable he does have chronic hypercarbia Assessment, plan, and Medical decision making: Recurrent aspiration pneumonia left lung with chronic findings suggestive of recurrent aspiration injury COPD acute exacerbation due the above Malnutrition, continue tube feeding, appreciate dietitian's consultation recommendation Dysphagia associated with prior head and neck cancer and treatment Patient remains at risk of recurrent aspiration even with complete NPO status, this was discussed with him and his , early management of acute infectious flare-up due to aspiration was discussed, the only protective strategy would include trachea pharyngeal separation with permanent tracheotomy which both patient and his were against 05/09/23 1611 Time In/Out Time In 1611 Time Out 1630 Total Visit Time 19 minutes PT Therapy Completed Yes Initial Evaluation/Screen Completed? 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 Chemo/RT with Cisplatin and RT and Ethyol. RT completed 02/28/09. Past Surgical History Past Surgical History: Procedure Laterality Date NECK SURGERY 2008 for cancer INGUINAL HERNIA REPAIR 1988 REMOVAL CATARACT (PEM) Bilateral VASECTOMY Existing Precautions/Restrictions supplemental oxygen (3L of O2) Home Setting Residence House Lives With spouse First floor setup bedroom Number of stairs to enter home 2 Number of stairs in home 12 Previous Level of Function Ambulation Skills independent Assistive Device none used Level of Ambulation community (limited distances) General Pain Documentation (Adult, OB, Peds) Presence of Pain denies pain/discomfort Presence of Pain Score (Auto-calculated) 0 Cognitive Status Examination Orientation Status (Cognition) oriented x 4 Level of Consciousness alert Able to Follow Commands (Communication) WFL Personal Safety and Judgment intact Range of Motion (ROM) Range of Motion Examination bilateral lower extremity ROM was WFL Manual Muscle Testing (MMT) Manual Muscle Testing Results bilateral lower extremity MMT was WFL Bed Mobility Skill: Supine to Sit, Rehab Eval Level of [place]: Supine/Sit independent Transfer Skill: Sit To Stand, Rehab Eval [place] (Sit-Stand Transfers) independent Gait Skills, PT Eval Level of [place]: Gait independent Gait Distance 50 feet Gait Analysis, PT Eval Gait Pattern Used swing-through gait Balance Additional Documentation (Seated/Standing: Good) Plan of Care Interventions Additional Comments Following evaluation pt left seated on the toilet and was instructed to use the call light when finished. Assessment Assessment Narrative Pt is a 72 year old male admitted due to multifocal PNA. Pt is at his baseline with independence with mobility however does become SOB easily with decreasing SpO2. Pt was instructed on HEP and continued mobility. Pt does not require skilled PT services at this time. Discharge Recommendations Pt to return home. Possible outpatient PT services to progress endurance. Clinical Impression Co-evaluation/co-treatment performed? No simultaneous skilled care performed Criteria for Skilled Therapeutic Interventions Met (PT Eval) no Therapy Frequency no therapy warranted Today's Treatment Included PT evaluation Therapist Recommendations At Discharge Recommendations PT Services not recommended at Discharge Plan Plan for next session PT evaluation only Spoke with patients , Christa regarding pole for tube feeds. Patients states they plan to continue to receive tube feeds from [employer] but they are unable to provide a pole for home use. Updated that most companies will not provide supplies for patients if they are not providing services. Offered to call local [employer] but patients stated she will get on [employer] and see if she can get a pole. Instructed to reach out to this nurse if unable to obtain a pole and needing further assistance. Case Management to follow. Patient is resting in bed and denies any needs at this time. Call light in reach. Assessment remains unchanged, unless otherwise documented in Flowsheets. ADMINISTRATIVE DIETITIAN met with patient to discuss discharge plans. Patient was resting. Spouse, Christa, at the bedside. The patient currently lives with Christa in a single story home. She states that he does have advance directives. She states that patient is independent with ADLs. He is receiving Tube Feeding supplies at home through [facility] ([phone]). Patient and spouse expressed to [employer] that they would like to have a pole at home to hang the patient's tube feeds on as they are currently holding them. ADMINISTRATIVE DIETITIAN spoke with medical service and they state that they do not supply anything for this patient. ADMINISTRATIVE DIETITIAN to reach out to RN nurse navigator at this time. Patient's spouse states that she is considering home health at the time of discharge. She states that she would like to wait to arrange the service until closer to the patient's discharge. ADMINISTRATIVE DIETITIAN explained that SW team would continue to follow for recommendations. Discharge Plan: SW following for recommendations. 05/09/23 [id number] Referral Information Arrived From home or self-care Readmission Information Was patient readmitted within 30 Days? No Information Source Information Source patient Outpatient Providers Outpatient Providers Updated In I[facility]IS Yes Contact Information Rip Tailer/SW Added to Care Team Yes This Director Of Front Office is Primary Rip Tailer/SW Yes Social Work Contact Name Delma Mcclure Stereo Equipment Installer's Living Environment Lives With spouse Living Arrangement and Set Up house ([facility]) Provides Primary Care For no one Primary Care Provided By self Support System Immediate family Able to Return to Prior Arrangements yes Functional Status Patient's Functional Status Prior To This Admission? Independent Are There Status Changes This Admission? No Concerns With Patient Being Able To Care For Themselves At Discharge? Has Assistance (Friend, Family, Skilled Provider) Who Is Patient's Primary Contact For Discharge Planning, Education And Care For Discharge? Christa Serrato Can Support Person Meet The Care Needs Of The Patient? Yes Employment/Financial Employed? Retired Employment/Financial Concerns no Source Of Income pension/mcfp;social security Financial Concerns none Insurance Medical Insurance Verified Yes Prescription Coverage Yes Pharmacy updated in IHIS Yes Initial Discharge Planning Home Care Services ([facility]) No Home Therapies ([facility]) None DME ([facility]) None Medical Supplies ([facility]) Other (comment) (TF supplies) Patient Goal for Discharge Return home with assistance from family and friends Anticipated discharge disposition Home with Home Health Anticipated Services at Discharge [facility] Anticipated Changes Related to Illness none Transportation Available car Home Care Services ([facility]) Additional Home Care Services ([facility]) no Gregg Brennan notified of Troponin of 44. No new orders. ENTERAL FEEDING RECOMMENDATION Nutrition Assessment Mr. Amy Sun is a 72 y.o. male admitted to [facility] for: No diagnosis found. Indication for initiating enteral feeding: Patient has been receiving tube feedings at home. 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 Subjective assessments / comments: explains that patient had lost 100# over past year or so and was told previously that he needed 2700 calories per day but was recommended only 5 boluses per day which she believed wasn't enough so she has been giving him 8 boluses/day along with 170 ml H20 with each one. NPO at home. Anthropometrics: Ht Readings from Last 1 Encounters: 05/09/23 1.854 m (6' 0.99) Wt Readings from Last 10 Encounters: 05/09/23 76.7 kg (169 lb) 04/22/23 79 kg (174 lb 3.2 oz) 04/20/23 80.2 kg (176 lb 12.8 oz) 04/08/23 78.5 kg (173 lb) 04/02/23 75.3 kg (166 lb) 03/18/23 80.3 kg (177 lb) 03/03/23 78.7 kg (173 lb 6.4 oz) 02/21/23 78.7 kg (173 lb 9.6 oz) 08/13/22 87.6 kg (193 lb 3.2 oz) 02/07/22 91.6 kg (202 lb) [place] body weight: 79.9 kg (176 lb 1.7 oz) Body mass index is 22.3 kg/m . Classified as: Healthy range Estimated Energy Requirements: Calories: 1925- 2310(25-30) Protein: 92 gm/day (1.2 gm/kg CBW) Fluids: 1 mL/kcal of EN - adjust per provider rec to meet fluid needs EN Rec Enteral feeding Jevity 1.5 Goal rate 64 ml/hr Duration continuous Total mL fluids from EN 1167 Total kcal from EN 2304 Protein from EN 98 g Water flush 180 ml q 4 hrs TOTAL KCAL 2304 TOTAL PROTEIN 98 TOTAL mL FLUIDS 2247 Nutrition Related Labs: Lab Results Component Value Date GLUCOSE 146 (H) 05/09/2023 GLUCOSE 153 (H) 04/20/2023 GLUCOSE 142 (H) 04/20/2023 HGBA1C 5.8 08/09/2022 SODIUM 134 (L) 05/09/2023 POTASSIUM 4.0 05/09/2023 MAGNESIUM 2.0 04/20/2023 PHOSPHORUS 3.1 04/20/2023 ALBUMIN 4.2 05/09/2023 PREALBUMIN 17.2 (L) 04/19/2023 CALCIUM 8.6 05/09/2023 TP 7.0 05/09/2023 BUN 27 (H) 05/09/2023 CREATSERUM 0.70 05/09/2023 AST 45 05/09/2023 CRP 67.9 (H) 05/09/2023 HGB 15.0 05/09/2023 HCT 43.9 05/09/2023 Nutrition-Related History: Current Diet Orders Procedures DIET NPO WITHOUT meds Standing Status: Standing Number of Occurrences: 1 Order Specific Question: NPO Meds: Answer: WITHOUT meds No Known Allergies Past Medical History: Diagnosis Date Abnormal glucose Bilateral leg edema BPH without urinary obstruction Chronic kidney disease (CKD), stage I Degenerative joint disease Enthesopathy Essential hypertension, benign Fatigue Former smoker 2 PPD x46 years, quite 09/19/2008 GERD (gastroesophageal reflux disease) Hepatic steatosis Hyperlipidemia Impotence of organic origin Insomnia Obesity Testicular hypofunction Tongue cancer Stage IIB, T2, N1, 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 Chemo/RT with Cisplatin and RT and Ethyol. RT completed 02/28/09. Past Surgical History: Procedure Laterality Date NECK SURGERY 2008 for cancer INGUINAL HERNIA REPAIR 1988 REMOVAL CATARACT (PEM) Bilateral VASECTOMY Nutrition Diagnosis NI-2.4 Excessive enteral nutrition infusion related to 's direction as evidenced by receiving more than recommended amounts daily. NC-1.1 Swallowing difficulty related to cancer/radiation tx as evidenced by need for TF due to frequent aspiration. Interventions Provide Jevity 1.5 at 30 mL/hr and advance by 10 mL q8h if well tolerated until goal rate of 64 mL/hr is reached Provide 180 mL free water flush q4h Monitoring & Evaluation Enteral Monitoring: Elevate head of bed 30-45 degrees while feeding Check gastric residuals every 4 hours when initiating feeding. May check every 6-8 hours once goal rate is achieved Hold gastric feeds for residuals more than 500 mL. Avoid holding feeds for residuals < 500 mL without other signs of intolerance and consider a prokinetic agent for GRV volumes 250-500 mL If unable to meet caloric goals after 7-10 days, consider initiating supplemental parenteral nutrition Reassess goal feed rate on an ongoing basis Daily lab draws: Phosphorus Magnesium Sodium Potassium Blood Glucose Every three days draw triglyceride lab Do not put blue dye or coca cola (or similar products) into the feeding tube Patient at high nutritional risk. Reassess 3 x week. Available by consult. Nutrition Goals: Meet estimated nutrition requirements through enteral nutrition support Pt to tolerate enteral nutrition Maintain current weight and prevent weight loss Preserve lean body mass Prevent nutrient deficiencies Maintain electrolyte and fluid balance Monitor patient weight, labs, and tolerance to enteral nutrition Daily weights @ 4 AM I/O documentation of all fluids, EN, and PO intake Lisa Gary RD, LD Registered Dietitian, Licensed Dietitian 05/09/23 documented in this encounter [facility] 05-10-2023 Nurse Note No change in pt condition since the last nursing assessment unless noted in the flowsheets. Patient denies needs. Call light and bedside table within reach. T [facility] 05-10-2023 Progress note Formatting of t his note might be different from the original. OT consult received and chart reviewed, patient admitted for multifocal pneumonia, per patient and spouse he has been independent with ADLs and reports no difficulty getting up and out of bed, recommend continuing OOB activity during hospital stay, deny need for OT evaluation, will sign off T [facility] 05-09-2023 Nurse Note Sitting up in bed upon this RN arrival to patient room. present and attentive to patient needs at the bedside. Denies needs at this time, call light in reach. [facility] 05-09-2023 Plan of care note Problem: Adult Inpatient Plan of Care Goal: Plan of Care Review Outcome: Progressing Goal: Patient-Specific Goal (Individualized) Outcome: Progressing Goal: Absence of Hospital-Acquired Illness or Injury Outcome: Progressing Goal: Optimal Comfort and Wellbeing Outcome: Progressing Goal: Readiness for Transition of Care Outcome: Progressing Problem: Skin Injury Risk Increased Goal: Skin Health and Integrity Outcome: Progressing Problem: Pneumonia Goal: Fluid Balance Outcome: Progressing Goal: Resolution of Infection Signs and Symptoms Outcome: Progressing Goal: Effective Oxygenation and Ventilation Outcome: Progressing [facility] 05-09-2023 Emergency department Note Pt taken to [facility] room [facility] via cot with fluids running, monitor and pulse ox on, pt on 3L NC. Pt report given to Sudhir SANCHEZ along with sepsis paper work. Pt left in stable condition and call light within reach. [facility] 05-09-2023 Emergency department Note Pt taken to CT room [facility] via cot with fluids running, monitor and pulse ox on, pt on 3L NC. Pt report given to Sudhir SANCHEZ along with sepsis paper work. Pt left in stable condition and call light within reach. Pt back from CT Assigned room [facility]. Pt to CT at this time. Dr Fitch called and transferred to Dr Campos at this time. Urinal left at bedside for pt. and pt educated the we need urine for specimen RT called for arterial gas Paged Dr Fitch a third time. Report given to DANIEL Womack. Report sheet completed and given to DANIEL Womack Pt's BP 85/53, rechecked at 74/59. Dr Campos notified. Paged Dr Fitch a second time. Patients's home medications and belongings updated per pt and Paged Dr Fitch at this time. IV attempted x2 times by this RN unsuccessful. IV attempted by DANIEL Cr, unsuccessful. Hermelindo RN in to attempt IV. Patient and updated on plan of care, verbalized understanding. Lab at bedside to collect cultures Emergency Department Report [facility] EMERGENCY DEPARTMENT Service Date:.05/09/23 PCP: Gunjan Godoy Chief Complaint: Chief Complaint Patient presents with Cough Chest Congestion Pt's reports pt had fever of 101.4 yesterday and congestion. Pt denies any SOB HPI Amy Sun is a 72 y.o. male presents to the ED with chief complaint of cough and fever. Patient presents to the emergency department with fever and cough. She states he had a temperature yesterday over 100. No Motrin or Tylenol was given. He is tube fed secondary to history of throat cancer and history of aspiration pneumonias. She is concerned that this is what is occurring. He denies chest pain or palpitations. He denies headache or runny nose. He denies sore throat. He denies frequency or urgency. Denies sick contacts or travel. states he had chills yesterday. Review of Systems: Review of Systems Review of Systems Constitutional: Positive for chills and fever Skin: Negative for rash or bruising HENT: Negative Eyes: Negative Cardiovascular: Negative for chest pain, palpitations Gastrointestinal: Negative for nausea vomiting or diarrhea Respiratory: Positive for shortness of breath, cough Genitourinary: Negative Musculoskeletal: Negative Neurological: Negative Past Medical History: Past Medical History: Diagnosis Date Abnormal glucose Bilateral leg edema BPH without urinary obstruction Chronic kidney disease (CKD), stage I Degenerative joint disease Enthesopathy Essential hypertension, benign Fatigue Former smoker 2 PPD x46 years, quite 09/19/2008 GERD (gastroesophageal reflux disease) Hepatic steatosis Hyperlipidemia Impotence of organic origin Insomnia Obesity Testicular hypofunction Tongue cancer Stage IIB, T2, N1, 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 Chemo/RT with Cisplatin and RT and Ethyol. RT completed 02/28/09. Past Surgical History: Past Surgical History: Procedure Laterality Date NECK SURGERY 2008 for cancer INGUINAL HERNIA REPAIR 1988 REMOVAL CATARACT (PEM) Bilateral VASECTOMY Allergies: No Known Allergies Medications: Patient's Medications New Prescriptions No medications on file Previous Medications [id number] (EXCEDRIN PO) Take by mouth. DUTASTERIDE (AVODART) 0.5 MG CAPSULE Take 1 capsule by mouth daily. MULTIPLE VITAMINS-MINERALS (CENTRUM SILVER 50+MEN PO) Take by mouth. PANTOPRAZOLE SODIUM 40 MG PACK Take 1 packet by mouth every morning before breakfast. am PILOCARPINE 5 MG TABLET Take 1 tablet by mouth Three times a day. ROSUVASTATIN (CRESTOR) 5 MG TABLET Take 1 tablet by mouth daily. SULINDAC 150 MG TABLET Take 1 tablet by mouth 2 times daily. SUMATRIPTAN 50 MG TABLET Take 1 tablet by mouth Every 2 hours as needed. TESTOSTERONE 25 MG/2.5GM (1%) GEL GEL Place 2.5 g on skin daily. THIAMINE 100 MG TABLET Take 1 tablet by mouth daily. TRAMADOL 50 MG TABLET Take 1 tablet by mouth 3 times daily as needed. VALSARTAN 160 MG TABLET Take 1 tablet by mouth daily. Modified Medications No medications on file Discontinued Medications No medications on file Family History: Family History Problem Relation Age of Onset No known problems Mother Heart Disease - Other Father Heart Disease - Other Brother Heart Disease - Other Other Coronary Artery Disease Other Social History: Social History Socioeconomic History Marital status: Spouse name: Not on file Number of children: Not on file Years of education: Not on file Highest education level: Not on file Occupational History Not on file Tobacco Use Smoking status: Former Types: Cigarettes Smokeless tobacco: Never Vaping Use Vaping status: Never Used Substance and Sexual Activity Alcohol use: No Drug use: No Sexual activity: Not on file Other Topics Concern Not on file Social History Narrative Not on file Social Determinants of Health Financial Resource Strain: Not on file Food Insecurity: No Food Insecurity (04/19/2023) Hunger Vital Sign Worried About Running Out of Food in the Last Year: Never true Ran Out of Food in the Last Year: Never true Transportation Needs: No Transportation Needs (04/19/2023) PRAPARE - Transportation Lack of Transportation (Medical): No Lack of Transportation (Non-Medical): No Physical Activity: Not on file Stress: Not on file Social Connections: Not on file Intimate Partner Violence: Not At Risk (04/19/2023) Humiliation, Afraid, Rape, and Kick questionnaire Fear of Current or Ex-Partner: No Emotionally Abused: No Physically Abused: No Sexually Abused: No Housing Stability: Low Risk (04/19/2023) Housing Stability Vital Sign Unable to Pay for Housing in the Last Year: No Number of Places Lived in the Last Year: 1 Unstable Housing in the Last Year: No Physical Exam: Physical Exam General: Well-developed well-nourished nontoxic HENT: Head is atraumatic. Face is symmetric. Mucous membranes are hydrated Eyes: Pupils are equal. Sclera is anicteric Skin: Warm, dry. No rash Abdomen: Soft. No guarding or rebound. Good bowel sounds heard in all 4 quadrants. Patient does have a PEG tube. There is no surrounding erythema. No pain on palpation over the abdomen Respiratory: Scattered rales. There is no dullness to percussion Heart: Heart tones are regular. Capillary refill is brisk Neurologic: Awake, alert, oriented x3. Moving all extremities well Lymphatic: No lymphedema or lymphadenopathy Musculoskeletal: No fracture, trauma, deformity Psychiatric: Cooperative with examiner Vital Signs During ED Visit Patient Vitals for the past 24 hrs: BP Temp Temp src Pulse Resp SpO2 Height 05/09/23 0900 138/66 -- -- 95 20 90 % -- 05/09/23 0830 147/81 -- -- 97 20 91 % -- 05/09/23 0819 -- -- -- -- -- (!) 88 % -- 05/09/23 0802 -- -- -- -- -- -- 1.854 m (6' 1) 05/09/23 0801 109/70 99.2 F (37.3 C) Oral 98 18 (!) 80 % -- Orders/Results: Results for orders placed or performed during the hospital encounter of 05/09/23 [facility] 1 - NASOPHARYNGEAL Specimen: NASOPHARYNGEAL; Fluid/Swab Result Value Ref Range SARS COV 2 RNA, QL REAL TIME RT PCR NOT DETECTED NOT DETECTED NARRATIVE -1 This test was performed using isothermal ROBERTA and has been approved as Emergency Use Authorization (EUA) for the qualitative detection [id number] nucleic acid. CBC, EDIF, PLATELET Result Value Ref Range WBC (WHITE BLOOD COUNT) 24.9 (H) 3.6 - 11.0 10*3/uL RBC 5.00 4.0 - 6.1 10*6/uL HEMOGLOBIN (HGB) 15.0 14.0 - 18.0 G/DL HEMATOCRIT (HCT) 43.9 42.0 - 52.0 % MEAN CELL VOLUME 87.9 80.0 - 100.0 FL Mean Cell HGB 30.0 26.0 - 35.0 PG MEAN CELL HGB CONCENTRATION 34.1 27.0 - 37.0 G/DL RBC DISTRIBUTION 15.5 (H) 11.5 - 14.5 % PLATELET COUNT 249 130 - 400 10*3/uL MEAN PLATELET VOLUME 7.8 7.4 - 11.0 FL DIFFERENTIAL TYPE PENDING % COMPREHENSIVE METABOLIC PANEL Result Value Ref Range Glucose 146 (H) 70 - 100 MG/DL BUN 27 (H) 7 - 20 MG/DL CREATININE SERUM 0.70 0.70 - 1.20 MG/DL SODIUM 134 (L) 137 - 145 MMOL/L POTASSIUM 4.0 3.5 - 5.1 MMOL/L CHLORIDE 96 (L) 98 - 107 MMOL/L CALCIUM 8.6 8.4 - 10.2 MG/DL PROTEIN, TOTAL 7.0 6.3 - 8.2 GM/DL Albumin 4.2 3.5 - 5.0 G/dl BILIRUBIN, TOTAL 0.8 0.2 - 1.3 MG/DL AST 45 17 - 59 IU/L ALKALINE PHOSPHATASE 129 (H) 38 - 126 IU/L CARBON DIOXIDE (CO2) 35 (H) 22 - 30 MMOL/L A/G Ratio 1.5 RATIO ALT 37 <50 IU/L ESTIMATED GFR, NON AMER 118 ml/min/1.73sq.m ESTIMATED GFR, 143 ml/min/1.73sq.m GFR COMMENT Average GFR for 70+ years old = 75. INFLUENZA A AND B, PCR Result Value Ref Range INFLUENZA A NEGATIVE NEGATIVE INFLUENZA B NEGATIVE NEGATIVE Radiographic Imaging XR CHEST PA 1 VIEW Final Result IMPRESSION: 1. Mild reticular opacities present in the right lung base, which was seen on the previous exam as tree-in-bud opacities. Also infrahilar peribronchial thickening is present. These findings are possibly due to infectious/inflammatory airways disease. Procedures: Procedures Moderate Sedation Procedure: No ED Summary/[facility] Chest x-ray at this time shows reticular opacities present in the right lung base was seen previously. Also there is infrahilar peribronchial thickening due to infectious/inflammatory cause. Patient was negative for flu [place] [address] H&H of 15 and 43. BUN of 27 creatinine of 0.7 we will make arrangements for care in the hospital at this time he is maintaining an oxygen saturation above 92 while on nasal cannula oxygen Clinical Impression: Pneumonia Hypoxia No follow-ups on file. New Prescriptions No medications on file Discontinued Medications No medications on file An After Visit Summary was printed and given to the patient with above information. . Chaka Campos MD 05/09/[address] Campos at bedside Pt ambulated to bathroom with steady gait. Pt denies any SOB. Pt 80% on RA after ambulating to bathroom. documented in this encounter [facility] 05-09-2023 History and physical note History and Physical Examination Admit date: 05/09/2023 7:55 AM Chief Complaint: Chief Complaint Patient presents with Cough Chest Congestion Pt's reports pt had fever of 101.4 yesterday and congestion. Pt denies any SOB History of Present Illness: Patient is a 72 y.o. male who presented to the hospital for evaluation of cough and fever. Patient presented to the emergency department with fever and cough. She states he had a temperature yesterday over 100. No Motrin or Tylenol was given. He has tube fed secondary to history of throat cancer and history of aspiration pneumonias. is concerned that this is what is occurring. He denies chest pain or palpitations. He denies headache or runny nose. He denies sore throat. He denies frequency or urgency. Denies sick contacts or travel. states he had chills yesterday. He was admitted earlier this month for pneumonia. On arrival patient temperature 99.2 pulse 98 respiratory rate was 20 pulse oximetry was 80% on room air. Blood pressure did drop down to 74/59. X-ray suggests multifocal pneumonia. Labs showed a lactic at 2.1, [place] [address]. He was an elevated D-dimer and slightly elevated troponin. Patient was placed on 3 L oxygen with improvement of saturations. He will be started on antibiotics, IV fluid. Cultures have been obtained. 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 Chemo/RT with Cisplatin and RT and Ethyol. RT completed 02/28/09. Past Surgical History: Procedure Laterality Date NECK SURGERY 2008 for cancer INGUINAL HERNIA REPAIR 1987 REMOVAL CATARACT (PEM) Bilateral VASECTOMY Social History Tobacco Use Smoking status: Former Types: Cigarettes Smokeless tobacco: Never Substance Use Topics Alcohol use: No Family History Problem Relation Age of Onset No known problems Mother Heart Disease - Other Father Heart Disease - Other Brother Heart Disease - Other Other Coronary Artery Disease Other (Not in a hospital admission) No Known Allergies Review of Systems: Ten systems reviewed and found to be negative unless otherwise stated in the history and present illness. PHYSICAL EXAM: Patient Vitals for the past 8 hrs: BP Temp Temp src Pulse Resp SpO2 Height 05/09/23 1015 116/62 98.5 F (36.9 C) -- 83 20 93 % -- 05/09/23 1000 (!) 74/59 -- -- 83 20 94 % -- 05/09/23 0930 85/53 -- -- 80 20 96 % -- 05/09/23 0900 138/66 -- -- 95 20 90 % -- 05/09/23 0830 147/81 -- -- 97 20 91 % -- 05/09/23 0819 -- -- -- -- -- (!) 88 % -- 05/09/23 0802 -- -- -- -- -- -- 1.854 m (6' 1) 05/09/23 0801 109/70 99.2 F (37.3 C) Oral 98 18 (!) 80 % -- General: Patient Awake. Accessory muscle. Nasal flaring. 2 word sentences. HEENT: Normalcephalic, atraumatic. Pupils equal, round, reactive, to light and accomodation B/L. Bilateral nares patent without obvious drainage. Oral mucosa dry, pink, intact without ulcers or lesions. Neck: No JVD, no thyromegaly, no anterior or posterior lymphadenopathy. Cardiovascular: Regular rate and rhythm, without murmurs, rubs, or gallops. Respiratory: Bilateral Upper and Lower Lobes anterior and posteriorly without coarse and wheezes Abdomen: Soft, rounded, non-tender. Bowel sounds present x4 quadrants. No rebound. No organomegaly or masses noted upon deep palpation. Peg tube intact. Extremities: No edema, distal clubbing and cyanosis, pulses palpable 1+ distally. Skin: Warm, Dry, Intact. No obvious rashes or lesions noted. Neuro: Patient awake, alert, orientedx3. Cranial nerves 2-12 grossly intact upon seated examination. No focal deficit noted. Diagnostics: Admission on 05/09/2023 Component Date Value WBC (WHITE BLOOD COUNT) 05/09/2023 24.9 (H) RBC 05/09/2023 5.00 HEMOGLOBIN (HGB) 05/09/2023 15.0 HEMATOCRIT (HCT) 05/09/2023 43.9 MEAN CELL VOLUME 05/09/2023 87.9 Mean Cell HGB 05/09/2023 30.0 MEAN CELL HGB CONCENTRAT* 05/09/2023 34.1 RBC DISTRIBUTION 05/09/2023 15.5 (H) PLATELET COUNT 05/09/2023 249 MEAN PLATELET VOLUME 05/09/2023 7.8 NEUTROPHILS 05/09/2023 96 (H) MONOCYTE % 05/09/2023 4 MORPHOLOGY 05/09/2023 NORMAL DIFFERENTIAL TYPE 05/09/2023 MANUAL DIFF PLATELET COMMENT 05/09/2023 ADEQUATE Glucose 05/09/2023 146 (H) BUN 05/09/2023 27 (H) CREATININE SERUM 05/09/2023 0.70 SODIUM 05/09/2023 134 (L) POTASSIUM 05/09/2023 4.0 CHLORIDE 05/09/2023 96 (L) CALCIUM 05/09/2023 8.6 PROTEIN, TOTAL 05/09/2023 7.0 Albumin 05/09/2023 4.2 BILIRUBIN, TOTAL 05/09/2023 0.8 AST 05/09/2023 45 ALKALINE PHOSPHATASE 05/09/2023 129 (H) CARBON DIOXIDE (CO2) 05/09/2023 35 (H) A/G Ratio 05/09/2023 1.5 ALT 05/09/2023 37 ESTIMATED GFR, NON AFRIC* 05/09/2023 118 ESTIMATED GFR, A* 05/09/2023 143 GFR COMMENT 05/09/2023 Average GFR for 70+ years old = 75. INFLUENZA A 05/09/2023 NEGATIVE INFLUENZA B 05/09/2023 NEGATIVE SARS COV 2 RNA, QL REAL * 05/09/2023 NOT DETECTED NARRATIVE -1 05/09/2023 This test was performed using isothermal ROBERTA and has been approved as Emergency Use Authorization (EUA) for the qualitative detection [id number] nucleic acid. LACTATE 05/09/2023 2.1 (HH) C-Reactive Protein 05/09/2023 67.9 (H) SEDIMENTATION RATE AUTOM* 05/09/2023 19 TROPONIN I, HIGH SENSITI* 05/09/2023 24 (H) BRAIN NATRIURETIC PEPTIDE 05/09/2023 48 SAMPLE SITE 05/09/2023 RRAD ALLENS TEST 05/09/2023 POS PATIENT PO2 SETTINGS 05/09/2023 3L O2 Device 05/09/2023 NASACANNULA pH Arterial 05/09/2023 7.44 pCO2 Arterial 05/09/2023 47 (H) pO2 Arterial 05/09/2023 76 (L) HCO3 05/09/2023 31.9 (H) Base Excess 05/09/2023 6.6 (H) CTHB 05/09/2023 13.8 % O2 HGB 05/09/2023 94.0 sO2 (O2 Saturation) 05/09/2023 96.4 Carboxyhemoglobin 05/09/2023 1.5 MetHB Arterial 05/09/2023 0.9 D-DIMER 05/09/2023 1.74 (HH) Impression and Plan: Principal Problem: Multifocal pneumonia- strict npo. Hcap atb. Iv steroid. Follow cultures. Ct pe pending. On 3l/nc Active Problems: Abnormal glucose- Ha1c. Severe protein-calorie malnutrition- nutrition consult. Tube feed Leukocytosis- hcap. Follow cx. Elevated troponin I level- trend. Check echo. COPD (chronic obstructive pulmonary disease) with acute bronchitis- iv atb. Nebs. Iv steroid. Dysphagia- strict npo. Peg tube. Squamous cell carcinoma of tongue--Continue outpatient follow up with [facility] S/P percutaneous endoscopic gastrostomy (PEG) tube placement- GERD (gastroesophageal reflux disease)- PPI Hypoxia- on 3l/nc 80% on room air. pH/PCO2/PO2/HCO3: 7.44/47/76/31.9 (05/08 1030) Other hypotension- elevated lactic acid. Ivf. Atb, steroid, improved with bolus. Hold htn meds. Elevated alk - check fractionated alk phos. Code Status Full Code I personally spent 15 minutes in the management of this patient, the details of my visit are listed in my documentation above. Plan of care was initiated in collaboration with attending physician. Please note Portions of this note utilized [employer] software, please excuse any typographical or grammatical errors Associated attestation - Angela Fitch DO - 05/09/2023 5:41 PM EDT Patient seen and examined independently. Meds, labs, and radiographs reviewed. +SOB w/ Hypoxia. 80% on RA. Recent 04/19/23 DC w/ Aspiration R sided PNA - completed Levaquin course. PEG w/ NPO. Family believes patient 'sneaks' food. All additional ROS NEG. 4-5 word dyspnea HEENT NC/AT PERRLA MM moist w/o ulceration No TM or JVD. Lungs diminished w/ crackles LLL and heart tones regular on exam. Abdo Soft NT/ND w/ BS + PEG C/D/I. No LE edema or rash. No focal deficits noted on exam. CTA reviewed- prelim - HERMINIA and LLL Aspiration PNA - await Rad report. ABG reviewed- Component Ref Range & Units 05/09/23 1030 SAMPLE SITE RRAD ALLENS TEST POS PATIENT PO2 SETTINGS 3L O2 Device NASACANNULA pH Arterial 7.350 - 7.450 7.44 pCO2 Arterial 35 - 45 mmHg 47 High pO2 Arterial 80 - 100 mmHg 76 Low HCO3 22 - 26 mEq/L 31.9 High Base Excess 0 - 2 mEq/L 6.6 High CTHB g/dl 13.8 % O2 HGB % 94.0 sO2 (O2 Saturation) 95 - 100 % 96.4 Carboxyhemoglobin % 1.5 MetHB Arterial % 0.9 WBC 24.9 Lactate 2.1 CRP 67.9 Procal 1.77 Empiric HCAP Atbx. Await Cx data. Volume expansion. NPO. All questions and concerns addressed w/ patient and at BS in regard to plan of care. I agree with assessments and plan of care. I personally spent >50% of the total time spent of 33 min on this date's billable encounter including all of the MDM for this encounter. [facility] 05-09-2023 History and physical note History and Physical Examination Admit date: 05/09/2023 7:55 AM Chief Complaint: Chief Complaint Patient presents with Cough Chest Congestion Pt's reports pt had fever of 101.4 yesterday and congestion. Pt denies any SOB History of Present Illness: Patient is a 72 y.o. male who presented to the hospital for evaluation of cough and fever. Patient presented to the emergency department with fever and cough. She states he had a temperature yesterday over 100. No Motrin or Tylenol was given. He has tube fed secondary to history of throat cancer and history of aspiration pneumonias. is concerned that this is what is occurring. He denies chest pain or palpitations. He denies headache or runny nose. He denies sore throat. He denies frequency or urgency. Denies sick contacts or travel. states he had chills yesterday. He was admitted earlier this month for pneumonia. On arrival patient temperature 99.2 pulse 98 respiratory rate was 20 pulse oximetry was 80% on room air. Blood pressure did drop down to 74/59. X-ray suggests multifocal pneumonia. Labs showed a lactic at 2.1, [place] [address]. He was an elevated D-dimer and slightly elevated troponin. Patient was placed on 3 L oxygen with improvement of saturations. He will be started on antibiotics, IV fluid. Cultures have been obtained. 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 Chemo/RT with Cisplatin and RT and Ethyol. RT completed 02/28/09. Past Surgical History: Procedure Laterality Date NECK SURGERY 2008 for cancer INGUINAL HERNIA REPAIR 1988 REMOVAL CATARACT (PEM) Bilateral VASECTOMY Social History Tobacco Use Smoking status: Former Types: Cigarettes Smokeless tobacco: Never Substance Use Topics Alcohol use: No Family History Problem Relation Age of Onset No known problems Mother Heart Disease - Other Father Heart Disease - Other Brother Heart Disease - Other Other Coronary Artery Disease Other (Not in a hospital admission) No Known Allergies Review of Systems: Ten systems reviewed and found to be negative unless otherwise stated in the history and present illness. PHYSICAL EXAM: Patient Vitals for the past 8 hrs: BP Temp Temp src Pulse Resp SpO2 Height 05/09/23 1015 116/62 98.5 F (36.9 C) -- 83 20 93 % -- 05/09/23 1000 (!) 74/59 -- -- 83 20 94 % -- 05/09/23 0930 85/53 -- -- 80 20 96 % -- 05/09/23 0900 138/66 -- -- 95 20 90 % -- 05/09/23 0830 147/81 -- -- 97 20 91 % -- 05/09/23 0819 -- -- -- -- -- (!) 88 % -- 05/09/23 0802 -- -- -- -- -- -- 1.854 m (6' 1) 05/09/23 0801 109/70 99.2 F (37.3 C) Oral 98 18 (!) 80 % -- General: Patient Awake. Accessory muscle. Nasal flaring. 2 word sentences. HEENT: Normalcephalic, atraumatic. Pupils equal, round, reactive, to light and accomodation B/L. Bilateral nares patent without obvious drainage. Oral mucosa dry, pink, intact without ulcers or lesions. Neck: No JVD, no thyromegaly, no anterior or posterior lymphadenopathy. Cardiovascular: Regular rate and rhythm, without murmurs, rubs, or gallops. Respiratory: Bilateral Upper and Lower Lobes anterior and posteriorly without coarse and wheezes Abdomen: Soft, rounded, non-tender. Bowel sounds present x4 quadrants. No rebound. No organomegaly or masses noted upon deep palpation. Peg tube intact. Extremities: No edema, distal clubbing and cyanosis, pulses palpable 1+ distally. Skin: Warm, Dry, Intact. No obvious rashes or lesions noted. Neuro: Patient awake, alert, orientedx3. Cranial nerves 2-12 grossly intact upon seated examination. No focal deficit noted. Diagnostics: Admission on 05/09/2023 Component Date Value WBC (WHITE BLOOD COUNT) 05/09/2023 24.9 (H) RBC 05/09/2023 5.00 HEMOGLOBIN (HGB) 05/09/2023 15.0 HEMATOCRIT (HCT) 05/09/2023 43.9 MEAN CELL VOLUME 05/09/2023 87.9 Mean Cell HGB 05/09/2023 30.0 MEAN CELL HGB CONCENTRAT* 05/09/2023 34.1 RBC DISTRIBUTION 05/09/2023 15.5 (H) PLATELET COUNT 05/09/2023 249 MEAN PLATELET VOLUME 05/09/2023 7.8 NEUTROPHILS 05/09/2023 96 (H) MONOCYTE % 05/09/2023 4 MORPHOLOGY 05/09/2023 NORMAL DIFFERENTIAL TYPE 05/09/2023 MANUAL DIFF PLATELET COMMENT 05/09/2023 ADEQUATE Glucose 05/09/2023 146 (H) BUN 05/09/2023 27 (H) CREATININE SERUM 05/09/2023 0.70 SODIUM 05/09/2023 134 (L) POTASSIUM 05/09/2023 4.0 CHLORIDE 05/09/2023 96 (L) CALCIUM 05/09/2023 8.6 PROTEIN, TOTAL 05/09/2023 7.0 Albumin 05/09/2023 4.2 BILIRUBIN, TOTAL 05/09/2023 0.8 AST 05/09/2023 45 ALKALINE PHOSPHATASE 05/09/2023 129 (H) CARBON DIOXIDE (CO2) 05/09/2023 35 (H) A/G Ratio 05/09/2023 1.5 ALT 05/09/2023 37 ESTIMATED GFR, NON AFRIC* 05/09/2023 118 ESTIMATED GFR, A* 05/09/2023 143 GFR COMMENT 05/09/2023 Average GFR for 70+ years old = 75. INFLUENZA A 05/09/2023 NEGATIVE INFLUENZA B 05/09/2023 NEGATIVE SARS COV 2 RNA, QL REAL * 05/09/2023 NOT DETECTED NARRATIVE -1 05/09/2023 This test was performed using isothermal ROBERTA and has been approved as Emergency Use Authorization (EUA) for the qualitative detection [id number] nucleic acid. LACTATE 05/09/2023 2.1 (HH) C-Reactive Protein 05/09/2023 67.9 (H) SEDIMENTATION RATE AUTOM* 05/09/2023 19 TROPONIN I, HIGH SENSITI* 05/09/2023 24 (H) BRAIN NATRIURETIC PEPTIDE 05/09/2023 48 SAMPLE SITE 05/09/2023 RRAD ALLENS TEST 05/09/2023 POS PATIENT PO2 SETTINGS 05/09/2023 3L O2 Device 05/09/2023 NASACANNULA pH Arterial 05/09/2023 7.44 pCO2 Arterial 05/09/2023 47 (H) pO2 Arterial 05/09/2023 76 (L) HCO3 05/09/2023 31.9 (H) Base Excess 05/09/2023 6.6 (H) CTHB 05/09/2023 13.8 % O2 HGB 05/09/2023 94.0 sO2 (O2 Saturation) 05/09/2023 96.4 Carboxyhemoglobin 05/09/2023 1.5 MetHB Arterial 05/09/2023 0.9 D-DIMER 05/09/2023 1.74 (HH) Impression and Plan: Principal Problem: Multifocal pneumonia- strict npo. Hcap atb. Iv steroid. Follow cultures. Ct pe pending. On Active Problems: Abnormal glucose- Ha1c. Severe protein-calorie malnutrition- nutrition consult. Tube feed Leukocytosis- hcap. Follow cx. Elevated troponin I level- trend. Check echo. COPD (chronic obstructive pulmonary disease) with acute bronchitis- iv atb. Nebs. Iv steroid. Dysphagia- strict npo. Peg tube. Squamous cell carcinoma of tongue--Continue outpatient follow up with [facility] S/P percutaneous endoscopic gastrostomy (PEG) tube placement- GERD (gastroesophageal reflux disease)- PPI Hypoxia- on 3l/nc 80% on room air. pH/PCO2/PO2/HCO3: 7.44/47/76/31.9 (05/08 1030) Other hypotension- elevated lactic acid. Ivf. Atb, steroid, improved with bolus. Hold htn meds. Elevated alk - check fractionated alk phos. Code Status Full Code I personally spent 15 minutes in the management of this patient, the details of my visit are listed in my documentation above. Plan of care was initiated in collaboration with attending physician. Please note Portions of this note utilized [employer] dictation software, please excuse any typographical or grammatical errors Associated attestation - Angela Fitch DO - 05/09/2023 5:41 PM EDT Patient seen and examined independently. Meds, labs, and radiographs reviewed. +SOB w/ Hypoxia. 80% on RA. Recent 04/19/23 DC w/ Aspiration R sided PNA - completed Levaquin course. PEG w/ NPO. Family believes patient 'sneaks' food. All additional ROS NEG. 4-5 word dyspnea HEENT NC/AT PERRLA MM moist w/o ulceration No TM or JVD. Lungs diminished w/ crackles LLL and heart tones regular on exam. Abdo Soft NT/ND w/ BS + PEG C/D/I. No LE edema or rash. No focal deficits noted on exam. CTA reviewed- prelim - HERMINIA and LLL Aspiration PNA - await Rad report. ABG reviewed- Component Ref Range & Units 05/09/23 1030 SAMPLE SITE RRAD ALLENS TEST POS PATIENT PO2 SETTINGS 3L O2 Device NASACANNULA pH Arterial 7.350 - 7.450 7.44 pCO2 Arterial 35 - 45 mmHg 47 High pO2 Arterial 80 - 100 mmHg 76 Low HCO3 22 - 26 mEq/L 31.9 High Base Excess 0 - 2 mEq/L 6.6 High CTHB g/dl 13.8 % O2 HGB % 94.0 sO2 (O2 Saturation) 95 - 100 % 96.4 Carboxyhemoglobin % 1.5 MetHB Arterial % 0.9 WBC 24.9 Lactate 2.1 CRP 67.9 Procal 1.77 Empiric HCAP Atbx. Await Cx data. Volume expansion. NPO. All questions and concerns addressed w/ patient and at BS in regard to plan of care. I agree with assessments and plan of care. I personally spent >50% of the total time spent of 33 min on this date's billable encounter including all of the MDM for this encounter. documented in this encounter [facility] 05-09-2023 Emergency department Note Pt back from CT T [facility] 05-09-2023 Emergency department Note Assigned room [id number]. [facility] 05-09-2023 Emergency department Note Pt to CT at this time. [facility] 05-09-[address] Fitch called and transferred to Dr Campos at this time. [facility] 05-09-2023 Emergency department Note Urinal left at bedside for pt. and pt educated the we need urine for specimen [facility] 05-09-2023 Emergency department Note RT called for arterial gas [facility] 05-09-2023 Emergency department Note Paged Dr Fitch a third time. [facility] 05-09-2023 Emergency department Note Report given to DANIEL Womack. Report sheet completed and given to DANIEL Womack [facility] 05-09-2023 Emergency department Note Pt's BP 85/53, rechecked at 74/59. Dr Campos notified. T [facility] 05-09-2023 Emergency department Note Paged Dr Fitch a second time. T [facility] 05-09-2023 Emergency department Note Patients's home medications and belongings updated per pt and [facility] 05-09-2023 Emergency department Note Paged Dr Fitch at this time. [facility] 05-09-2023 Emergency department Note IV attempted x2 times by daniel RN unsuccessful. IV attempted by DANIEL Cr, unsuccessful. DANIEL Casarez in to attempt IV. Patient and updated on plan of care, verbalized understanding. [facility] 05-09-2023 Emergency department Note Lab at bedside to collect cultures [facility] 05-09-2023 Physician Emergency department Note Emergency Department Report [facility] EMERGENCY [facility]PART[facility] Service Date:.05/09/23 PCP: Gunjan Godoy Chief Complaint: Chief Complaint Patient presents with Cough Chest Congestion Pt's reports pt had fever of 101.4 yesterday and congestion. Pt denies any SOB HPI Amy Sun is a 72 y.o. male presents to the ED with chief complaint of cough and fever. Patient presents to the emergency department with fever and cough. She states he had a temperature yesterday over 100. No Motrin or Tylenol was given. He is tube fed secondary to history of throat cancer and history of aspiration pneumonias. She is concerned that this is what is occurring. He denies chest pain or palpitations. He denies headache or runny nose. He denies sore throat. He denies frequency or urgency. Denies sick contacts or travel. states he had chills yesterday. Review of Systems: Review of Systems Review of Systems Constitutional: Positive for chills and fever Skin: Negative for rash or bruising HENT: Negative Eyes: Negative Cardiovascular: Negative for chest pain, palpitations Gastrointestinal: Negative for nausea vomiting or diarrhea Respiratory: Positive for shortness of breath, cough Genitourinary: Negative Musculoskeletal: Negative Neurological: Negative Past Medical History: Past Medical History: Diagnosis Date Abnormal glucose Bilateral leg edema BPH without urinary obstruction Chronic kidney disease (CKD), stage I Degenerative joint disease Enthesopathy Essential hypertension, benign Fatigue Former smoker 2 PPD x46 years, quite 09/19/2008 GERD (gastroesophageal reflux disease) Hepatic steatosis Hyperlipidemia Impotence of organic origin Insomnia Obesity Testicular hypofunction Tongue cancer Stage IIB, T2, N1, 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 Chemo/RT with Cisplatin and RT and Ethyol. RT completed 02/28/09. Past Surgical History: Past Surgical History: Procedure Laterality Date NECK SURGERY 2008 for cancer INGUINAL HERNIA REPAIR 1988 REMOVAL CATARACT (PEM) Bilateral VASECTOMY Allergies: No Known Allergies Medications: Patient's Medications New Prescriptions No medications on file Previous Medications [id number] (EXCEDRIN PO) Take by mouth. DUTASTERIDE (AVODART) 0.5 MG CAPSULE Take 1 capsule by mouth daily. MULTIPLE VITAMINS-MINERALS (CENTRUM SILVER 50+MEN PO) Take by mouth. PANTOPRAZOLE SODIUM 40 MG PACK Take 1 packet by mouth every morning before breakfast. am PILOCARPINE 5 MG TABLET Take 1 tablet by mouth Three times a day. ROSUVASTATIN (CRESTOR) 5 MG TABLET Take 1 tablet by mouth daily. SULINDAC 150 MG TABLET Take 1 tablet by mouth 2 times daily. SUMATRIPTAN 50 MG TABLET Take 1 tablet by mouth Every 2 hours as needed. TESTOSTERONE 25 MG/2.5GM (1%) GEL GEL Place 2.5 g on skin daily. THIAMINE 100 MG TABLET Take 1 tablet by mouth daily. TRAMADOL 50 MG TABLET Take 1 tablet by mouth 3 times daily as needed. VALSARTAN 160 MG TABLET Take 1 tablet by mouth daily. Modified Medications No medications on file Discontinued Medications No medications on file Family History: Family History Problem Relation Age of Onset No known problems Mother Heart Disease - Other Father Heart Disease - Other Brother Heart Disease - Other Other Coronary Artery Disease Other Social History: Social History Socioeconomic History Marital status: Spouse name: Not on file Number of children: Not on file Years of education: Not on file Highest education level: Not on file Occupational History Not on file Tobacco Use Smoking status: Former Types: Cigarettes Smokeless tobacco: Never Vaping Use Vaping status: Never Used Substance and Sexual Activity Alcohol use: No Drug use: No Sexual activity: Not on file Other Topics Concern Not on file Social History Narrative Not on file Social Determinants of Health Financial Resource Strain: Not on file Food Insecurity: No Food Insecurity (04/19/2023) Hunger Vital Sign Worried About Running Out of Food in the Last Year: Never true Ran Out of Food in the Last Year: Never true Transportation Needs: No Transportation Needs (04/19/2023) PRAPARE - Transportation Lack of Transportation (Medical): No Lack of Transportation (Non-Medical): No Physical Activity: Not on file Stress: Not on file Social Connections: Not on file Intimate Partner Violence: Not At Risk (04/19/2023) Humiliation, Afraid, Rape, and Kick questionnaire Fear of Current or Ex-Partner: No Emotionally Abused: No Physically Abused: No Sexually Abused: No Housing Stability: Low Risk (04/19/2023) Housing Stability Vital Sign Unable to Pay for Housing in the Last Year: No Number of Places Lived in the Last Year: 1 Unstable Housing in the Last Year: No Physical Exam: Physical Exam General: Well-developed well-nourished nontoxic HENT: Head is atraumatic. Face is symmetric. Mucous membranes are hydrated Eyes: Pupils are equal. Sclera is anicteric Skin: Warm, dry. No rash Abdomen: Soft. No guarding or rebound. Good bowel sounds heard in all 4 quadrants. Patient does have a PEG tube. There is no surrounding erythema. No pain on palpation over the abdomen Respiratory: Scattered rales. There is no dullness to percussion Heart: Heart tones are regular. Capillary refill is brisk Neurologic: Awake, alert, oriented x3. Moving all extremities well Lymphatic: No lymphedema or lymphadenopathy Musculoskeletal: No fracture, trauma, deformity Psychiatric: Cooperative with examiner Vital Signs During ED Visit Patient Vitals for the past 24 hrs: BP Temp Temp src Pulse Resp SpO2 Height 05/09/23 0900 138/66 -- -- 95 20 90 % -- 05/09/23 0830 147/81 -- -- 97 20 91 % -- 05/09/23 0819 -- -- -- -- -- (!) 88 % -- 05/09/23 0802 -- -- -- -- -- -- 1.854 m (6' 1) 05/09/23 0801 109/70 99.2 F (37.3 C) Oral 98 18 (!) 80 % -- Orders/Results: Results for orders placed or performed during the hospital encounter of 05/09/23 [facility] 1 - NASOPHARYNGEAL Specimen: NASOPHARYNGEAL; Fluid/Swab Result Value Ref Range SARS COV 2 RNA, QL REAL TIME RT PCR NOT DETECTED NOT DETECTED NARRATIVE -1 This test was performed using isothermal ROBERTA and has been approved as Emergency Use Authorization (EUA) for the qualitative detection [id number] nucleic acid. CBC, EDIF, PLATELET Result Value Ref Range WBC (WHITE BLOOD COUNT) 24.9 (H) 3.6 - 11.0 10*3/uL RBC 5.00 4.0 - 6.1 10*6/uL HEMOGLOBIN (HGB) 15.0 14.0 - 18.0 G/DL HEMATOCRIT (HCT) 43.9 42.0 - 52.0 % MEAN CELL VOLUME 87.9 80.0 - 100.0 FL Mean Cell HGB 30.0 26.0 - 35.0 PG MEAN CELL HGB CONCENTRATION 34.1 27.0 - 37.0 G/DL RBC DISTRIBUTION 15.5 (H) 11.5 - 14.5 % PLATELET COUNT 249 130 - 400 10*3/uL MEAN PLATELET VOLUME 7.8 7.4 - 11.0 FL DIFFERENTIAL TYPE PENDING % COMPREHENSIVE METABOLIC PANEL Result Value Ref Range Glucose 146 (H) 70 - 100 MG/DL BUN 27 (H) 7 - 20 MG/DL CREATININE SERUM 0.70 0.70 - 1.20 MG/DL SODIUM 134 (L) 137 - 145 MMOL/L POTASSIUM 4.0 3.5 - 5.1 MMOL/L CHLORIDE 96 (L) 98 - 107 MMOL/L CALCIUM 8.6 8.4 - 10.2 MG/DL PROTEIN, TOTAL 7.0 6.3 - 8.2 GM/DL Albumin 4.2 3.5 - 5.0 G/dl BILIRUBIN, TOTAL 0.8 0.2 - 1.3 MG/DL AST 45 17 - 59 IU/L ALKALINE PHOSPHATASE 129 (H) 38 - 126 IU/L CARBON DIOXIDE (CO2) 35 (H) 22 - 30 MMOL/L A/G Ratio 1.5 RATIO ALT 37 <50 IU/L ESTIMATED GFR, NON AMER 118 ml/min/1.73sq.m ESTIMATED GFR, 143 ml/min/1.73sq.m GFR COMMENT Average GFR for 70+ years old = 75. INFLUENZA A AND B, PCR Result Value Ref Range INFLUENZA A NEGATIVE NEGATIVE INFLUENZA B NEGATIVE NEGATIVE Radiographic Imaging XR CHEST PA 1 VIEW Final Result IMPRESSION: 1. Mild reticular opacities present in the right lung base, which was seen on the previous exam as tree-in-bud opacities. Also infrahilar peribronchial thickening is present. These findings are possibly due to infectious/inflammatory airways disease. Procedures: Procedures Moderate Sedation Procedure: No ED Summary/MDM Chest x-ray at this time shows reticular opacities present in the right lung base was seen previously. Also there is infrahilar peribronchial thickening due to infectious/inflammatory cause. Patient was negative for flu [place] [address] H&H of 15 and 43. BUN of 27 creatinine of 0.7 we will make arrangements for care in the hospital at this time he is maintaining an oxygen saturation above 92 while on nasal cannula oxygen Clinical Impression: Pneumonia Hypoxia No follow-ups on file. New Prescriptions No medications on file Discontinued Medications No medications on file An After Visit Summary was printed and given to the patient with above information. . Chaka Campos MD 05/09/23 0920 [facility] Work Phone: 05-09-[address] Campos at bedside [facility] 05-09-2023 Emergency department Note Pt ambulated to bathroom with steady gait. Pt denies any SOB. Pt 80% on RA after ambulating to bathroom. [facility] 04-20-2023 Plan of care note Problem: Skin Integrity Impairment, Risk/Actual (Adult) Goal: Identify Related Risk Factors and Signs and Symptoms Description: Related risk factors and signs and symptoms are identified upon initiation of Human Response Clinical Practice Guideline (CPG) Outcome: Adequate for Discharge Goal: Skin Integrity/Wound Healing Description: Patient will demonstrate the desired outcomes by discharge/transition of care. Outcome: Adequate for Discharge Problem: Patient Care Overview Goal: Plan of Care Review Outcome: Adequate for Discharge Goal: Individualization & Mutuality Outcome: Adequate for Discharge Goal: Discharge Needs Assessment Outcome: Adequate for Discharge Goal: Interdisciplinary Rounds/Family Conf Outcome: Adequate for Discharge Problem: Pain, Acute (Adult) Goal: Identify Related Risk Factors and Signs and Symptoms Description: Related risk factors and signs and symptoms are identified upon initiation of Human Response Clinical Practice Guideline (CPG) Outcome: Adequate for Discharge Goal: Acceptable Pain Control/Comfort Level Description: Patient will demonstrate the desired outcomes by discharge/transition of care. Outcome: Adequate for Discharge Problem: Infection, Risk/Actual (Adult) Goal: Identify Related Risk Factors and Signs and Symptoms Description: Related risk factors and signs and symptoms are identified upon initiation of Human Response Clinical Practice Guideline (CPG) Outcome: Adequate for Discharge Goal: Infection Prevention/Resolution Description: Patient will demonstrate the desired outcomes by discharge/transition of care. Outcome: Adequate for Discharge Problem: Dysphagia (Adult) Goal: Functional/Safe Swallow Description: Diet Recommendations and Strategies NPO without meds ORAL HYGIENE 3X/DAY PNEUMONIA PROPHYLAXIS Oral hygiene is paramount in reducing the risk of pulmonary compromise due to aspiration and is more effective than diet modification alone. Patient should have dentures removed and cleaned at least once daily, and toothbrushing of the oral cavity should be completed a minimum of 3x/day after meals. Even NPO patients are at risk to aspirate secretions. Combined with effective oral hygiene, thin liquid water is pH neutral and is thus less likely to result in a pneumonia if aspirated, compared to thickened liquids which have xanthum gum, sugar, and other additives that can more readily culture bacteria. Plan of Care: Frequency: 4x/week Duration: 1 week Goals: Blend Plant Operator: Amy Sun will improve oropharyngeal function for safe secretion management. Short term: SOFTWARE APPLICATION TESTER will assist in establishing adequate oral hygiene for reduced risk of pulmonary compromise given dysphagia diagnosis. Amy Sun and/or family will demonstrate adequate comprehension of clinical education regarding dysphagia diagnosis, aspiration risks, benefits and burdens, diet, and treatment recommendations. Outcome: Adequate for Discharge [facility] 04-20-2023 Miscellaneous Notes Problem: Skin Integrity Impairment, Risk/Actual (Adult) Goal: Identify Related Risk Factors and Signs and Symptoms Description: Related risk factors and signs and symptoms are identified upon initiation of Human Response Clinical Practice Guideline (CPG) Outcome: Adequate for Discharge Goal: Skin Integrity/Wound Healing Description: Patient will demonstrate the desired outcomes by discharge/transition of care. Outcome: Adequate for Discharge Problem: Patient Care Overview Goal: Plan of Care Review Outcome: Adequate for Discharge Goal: Individualization & Mutuality Outcome: Adequate for Discharge Goal: Discharge Needs Assessment Outcome: Adequate for Discharge Goal: Interdisciplinary Rounds/Family Conf Outcome: Adequate for Discharge Problem: Pain, Acute (Adult) Goal: Identify Related Risk Factors and Signs and Symptoms Description: Related risk factors and signs and symptoms are identified upon initiation of Human Response Clinical Practice Guideline (CPG) Outcome: Adequate for Discharge Goal: Acceptable Pain Control/Comfort Level Description: Patient will demonstrate the desired outcomes by discharge/transition of care. Outcome: Adequate for Discharge Problem: Infection, Risk/Actual (Adult) Goal: Identify Related Risk Factors and Signs and Symptoms Description: Related risk factors and signs and symptoms are identified upon initiation of Human Response Clinical Practice Guideline (CPG) Outcome: Adequate for Discharge Goal: Infection Prevention/Resolution Description: Patient will demonstrate the desired outcomes by discharge/transition of care. Outcome: Adequate for Discharge Problem: Dysphagia (Adult) Goal: Functional/Safe Swallow Description: Diet Recommendations and Strategies NPO without meds ORAL HYGIENE 3X/DAY PNEUMONIA PROPHYLAXIS Oral hygiene is paramount in reducing the risk of pulmonary compromise due to aspiration and is more effective than diet modification alone. Patient should have dentures removed and cleaned at least once daily, and toothbrushing of the oral cavity should be completed a minimum of 3x/day after meals. Even NPO patients are at risk to aspirate secretions. Combined with effective oral hygiene, thin liquid water is pH neutral and is thus less likely to result in a pneumonia if aspirated, compared to thickened liquids which have xanthum gum, sugar, and other additives that can more readily culture bacteria. Plan of Care: Frequency: 4x/week Duration: 1 week Goals: Blend Plant Operator: Amy Sun will improve oropharyngeal function for safe secretion management. Short term: SOFTWARE APPLICATION TESTER will assist in establishing adequate oral hygiene for reduced risk of pulmonary compromise given dysphagia diagnosis. Amy Sun and/or family will demonstrate adequate comprehension of clinical education regarding dysphagia diagnosis, aspiration risks, benefits and burdens, diet, and treatment recommendations. Outcome: Adequate for Discharge Reviewed discharge instructions with patient and spouse, denied questions or concerns at this time. Resting in bed. Assessment unchanged from earlier. Tube feed at 15 cc/hr at this time. Patient tolerating without any nausea. Call light in reach. Patient awake in bed. Assessment unchanged from earlier except tube feeding initiated at 2300 with Jevity 1.2. Patient was medicated for complaints of nausea and tube feeding rate down from 30/ml/hr to 10 ml/hr. Peg tube flushed initially with h2o and placement was checked and verified. No residual obtained. Patient oxygen saturation in the 80's on his finger but high 90's on his ear lobe. He denies any respiratory issues and he is not SOB.Will monitor. Call light in reach. Notified Dietitian that per PCC, hospital only has Jevity 1.2 at present not 1.5 as originally recommended for tube feeding. Dietitian will recalculate recommendation at this time and will be Jevity 1.2 for tube feeding formula. Assessment unchanged from previous unless otherwise noted in flowsheets. Patient denies any pain or discomfort, respirations even and unlabored. Utilizing 2L of oxygen via nasal cannula. Patient's spouse present at bedside. Call light and personal items within reach. Patient denies any needs at this time. OT consult received and chart reviewed, patient admitted for COPD and aspiration, patient approached for OT evaluation he states he is independent with ADLs and mobility, noted this therapist saw him during last hospital stay and was assessed as independent, will sign off due to above Assessment unchanged from previous unless otherwise noted in flowsheets. Patient denies any pain or discomfort at this time. Respirations even and unlabored. Call light and personal items within reach. Patient denies any needs at this time. Problem: Dysphagia (Adult) Goal: Functional/Safe Swallow Description: Diet Recommendations and Strategies NPO without meds ORAL HYGIENE 3X/DAY PNEUMONIA PROPHYLAXIS Oral hygiene is paramount in reducing the risk of pulmonary compromise due to aspiration and is more effective than diet modification alone. Patient should have dentures removed and cleaned at least once daily, and toothbrushing of the oral cavity should be completed a minimum of 3x/day after meals. Even NPO patients are at risk to aspirate secretions. Combined with effective oral hygiene, thin liquid water is pH neutral and is thus less likely to result in a pneumonia if aspirated, compared to thickened liquids which have xanthum gum, sugar, and other additives that can more readily culture bacteria. Plan of Care: Frequency: 4x/week Duration: 1 week Goals: Blend Plant Operator: Amy Sun will improve oropharyngeal function for safe secretion management. Short term: SOFTWARE APPLICATION TESTER will assist in establishing adequate oral hygiene for reduced risk of pulmonary compromise given dysphagia diagnosis. Amy Sun and/or family will demonstrate adequate comprehension of clinical education regarding dysphagia diagnosis, aspiration risks, benefits and burdens, diet, and treatment recommendations. 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 MBS completed 03/04/23 stated there was no consistency that Mr. Sun could safely tolerate. Education provided about importance of oral hygiene for NPO patients given risk of aspiration of secretions thereby continually reintroducing bacterial jillian into the respiratory system. Ongoing education needed for generalization of knowledge, compliance with oral hygiene protocol, and comprehension of dysphagia diagnosis. Problem: Skin Integrity Impairment, Risk/Actual (Adult) Goal: Identify Related Risk Factors and Signs and Symptoms Description: Related risk factors and signs and symptoms are identified upon initiation of Human Response Clinical Practice Guideline (CPG) Outcome: Progressing Goal: Skin Integrity/Wound Healing Description: Patient will demonstrate the desired outcomes by discharge/transition of care. Outcome: Progressing Problem: Patient Care Overview Goal: Plan of Care Review Outcome: Progressing Goal: Individualization & Mutuality Outcome: Progressing Goal: Discharge Needs Assessment Outcome: Progressing Goal: Interdisciplinary Rounds/Family Conf Outcome: Progressing Problem: Pain, Acute (Adult) Goal: Identify Related Risk Factors and Signs and Symptoms Description: Related risk factors and signs and symptoms are identified upon initiation of Human Response Clinical Practice Guideline (CPG) Outcome: Progressing Goal: Acceptable Pain Control/Comfort Level Description: Patient will demonstrate the desired outcomes by discharge/transition of care. Outcome: Progressing Problem: Infection, Risk/Actual (Adult) Goal: Identify Related Risk Factors and Signs and Symptoms Description: Related risk factors and signs and symptoms are identified upon initiation of Human Response Clinical Practice Guideline (CPG) Outcome: Progressing Goal: Infection Prevention/Resolution Description: Patient will demonstrate the desired outcomes by discharge/transition of care. Outcome: Progressing Pt arrived via transport to [place] [id number] at 0605. Here for aspiration, hypoxia, resp acidosis per report from [facility]. Miriam is here too. Assessment completed as charted. No SOB or pain. Oriented to room. Fall precautions in place. Pt & deny needs or questions at this time. Received report from Carmen at [facility] in [place]. Pt is on his way over now. documented in this encounter [facility] 04-20-2023 Nurse Note Reviewed discharge instructions with patient and spouse, denied questions or concerns at this time. [facility] 04-20-2023 Hospital Discharge instructions Milvia Wagoner RN - 04/20/2023 12:57 PM EST As tolerated Milvia Wagoner RN - 04/20/2023 1:02 PM EST NPO with tube feeding pills crushed via PEG tube. The following attachments cannot be sent through Care Everywhere.Pain and Pain Control ([facility]) ([place])Basic Dental Care and Its Role in Preventing Pneumonia ([facility]) ([place])Aspiration Pneumonia ([place])documented in this encounter [facility] 04-20-2023 Hospital course Narrative Discharge Summary Summary Time: 04/20/23 10:37 AM Name: Amy Sun Age: 72 y.o. Birthday: 1950 Admit Date: 04/19/2023 4:55 AM Discharge Date: 04/20/2023 Brief Summary of Hospital Course: 72 year old male patient admitted with aspiration. Evaluated by speech therapy. Recommended continued NPO. Patient somewhat noncompliant at home with diet. Started on Tube feed here. Labs remained stable and CT negative for pneumonia. Today he is on room air and asymptomatic. He is stable for discharge home. He will follow up outpatient with his PCP. He will be discharged on antibiotics and steroid taper. Consultants: N/A Discharge Diagnosis: Principal Problem: Aspiration into airway Active Problems: Dysphagia Cough Squamous cell carcinoma of tongue Hyperglycemia S/P percutaneous endoscopic gastrostomy (PEG) tube placement COPD (chronic obstructive pulmonary disease) GERD (gastroesophageal reflux disease) Noncompliance Discharge Vital Signs: Blood pressure 135/80, pulse 70, temperature 98 F (36.7 C), temperature source Axillary, resp. rate 16, height 1.854 m (6' 1), weight 80.2 kg (176 lb 12.8 oz), SpO2 92%. O2 Sat (%): 92 % (04/20 823) O2 Device: room air (04/20 823) Flow (L/min): 0 (04/19 0400) Discharge Labs: Lab Results Component Value Date WBC 9.1 04/20/2023 HGB 13.5 (L) 04/20/2023 HCT 40.3 (L) 04/20/2023 PLATELET 204 04/20/2023 MCV 87.8 04/20/2023 @LASTMAGNESIUM(1D,2)@ Lab Results Component Value Date INR 1.17 (H) 04/20/2023 INR 1.12 (H) 04/19/2023 INR 1.31 (H) 03/04/2023 PT 15.0 (H) 04/20/2023 PT 14.5 (H) 04/19/2023 PT 16.4 (H) 03/04/2023 Lab Results Component Value Date CREATSERUM 0.60 (L) 04/20/2023 BUN 19 04/20/2023 SODIUM 138 04/20/2023 POTASSIUM 4.2 04/20/2023 CHLORIDE 104 04/20/2023 CO2 33 (H) 04/20/2023 No results found for: SPGRVTYUR, SPECGRAVUR, GLUCOSEURINE, BILIRUBINURI, KETONESURINE, BLOODURINE, PHURINE, NITRITEURINE, NITRITESURIN, LEUKOCESTUR, WBCURINE, RBCURINE, BACTERIAURIN PHYSICAL EXAM: General: Patient resting comfortably. Awake. No acute distress. Cardiovascular: Regular rate and rhythm, without murmurs, rubs, or gallops. Respiratory: Bilateral Upper and Lower Lobes without wheezes, rales, or rhonchi Abdomen: Soft, rounded, non-tender. Bowel sounds present x4 quadrants. No rebound. No organomegaly or masses noted upon deep palpation. PEG tube in place Extremities: No edema, clubbing or cyanosis, pulses palpable 2+ distally. Skin: Warm, Dry, Intact. Discharge Medications: Medication List for when you go home START taking these medications Morning Afternoon Evening Bedtime As Needed levoFLOXacin 500 MG TABS Take 1 tablet by mouth daily for 5 days. Commonly known as: LEVAQUIN Last time this was given: Ask your nurse or doctor predniSONE 20 MG TABS Take 2 tablets by mouth 2 times daily for 3 days, THEN 1 tablet 2 times daily for 4 days, THEN 0.5 tablets 2 times daily for 4 days. Commonly known as: DELTASONE Start taking on: April 20, 2023 CONTINUE taking these medications Morning Afternoon Evening Bedtime As Needed CENTRUM SILVER 50+MEN PO Take by mouth. dutasteride 0.5 MG CAPS Take 1 capsule by mouth daily. Commonly known as: Avodart For diagnoses: Benign prostatic hyperplasia with lower urinary tract symptoms, symptom details unspecified EXCEDRIN PO Take by mouth. pantoprazole Sodium 40 MG PACK Take 1 packet by mouth every morning before breakfast. am Commonly known as: PROTONIX Last time this was given: Ask your nurse or doctor pilocarpine 5 MG TABS Take 1 tablet by mouth Three times a day. Commonly known as: SALAGEN Rosuvastatin 5 MG TABS Take 1 tablet by mouth daily. Commonly known as: Crestor For diagnoses: Hyperlipidemia, unspecified hyperlipidemia type sulindac 150 MG TABS Take 1 tablet by mouth 2 times daily. Commonly known as: CLINORIL SUMAtriptan 50 MG TABS Take 1 tablet by mouth Every 2 hours as needed. Commonly known as: IMITREX Testosterone 25 MG/2.5GM (1%) GEL gel Place 2.5 g on skin daily. For diagnoses: Testicular hypofunction Thiamine 100 MG TABS Take 1 tablet by mouth daily. traMADol 50 MG TABS Take 1 tablet by mouth 3 times daily as needed. Commonly known as: ULTRAM For diagnoses: Arthritis Valsartan 160 MG TABS Take 1 tablet by mouth daily. Commonly known as: DIOVAN For diagnoses: Benign hypertension Discharge Activity: Resume pre-hospital activities as tolerated. Discharge Diet: Resume pre-hospital diet as tolerated. Discharge Follow-up: Gunjan Godoy MD [address] [facility] [id number] Follow up in 1 week(s) Discharge Disposition: Patient will be discharged in stable condition. Discharge Time: I spent a total of 3 minutes in management of this patient. The details of my visit are listed in my documentation above. Pito Lance PA-C completing Discharge Summary for Dr. Fitch Please note portions of this note utilized [employer] dictation software, please excuse any typographical or grammatical errors Associated attestation - Angela Fitch DO - 04/20/2023 12:11 PM EST Patient seen and examined independently. Meds, labs, and radiographs reviewed. Lungs diminished and heart tones regular on exam. Patient requesting DC. NPO and complete Atbx course. All questions and concerns addressed w/patient at BS in regard to plan of care. I agree with assessments and plan of care. I personally spent >50% of the total time spent of 11 min on this date's billable encounter including all of the MDM for this encounter. documented in this encounter [facility] 04-20-2023 Nurse Note Resting in bed. Assessment unchanged from earlier. Tube feed at 15 cc/hr at this time. Patient tolerating without any nausea. Call light in reach. [facility] 04-20-2023 Nurse Note Patient awake in bed. Assessment unchanged from earlier except tube feeding initiated at 2300 with Jevity 1.2. Patient was medicated for complaints of nausea and tube feeding rate down from 30/ml/hr to 10 ml/hr. Peg tube flushed initially with h2o and placement was checked and verified. No residual obtained. Patient oxygen saturation in the 80's on his finger but high 90's on his ear lobe. He denies any respiratory issues and he is not SOB.Will monitor. Call light in reach. [facility] 04-19-2023 Nurse Note Notified Dietitian that per PCC, hospital only has Jevity 1.2 at present not 1.5 as originally recommended for tube feeding. Dietitian will recalculate recommendation at this time and will be Jevity 1.2 for tube feeding formula. [facility] 04-19-2023 History of Present illness Narrative INITIAL NUTRITION ASSESSMENT AND ENTERAL FEEDING RECOMMENDATION Mr. Amy Sun is a 72 y.o. male was admitted to [facility] for: No diagnosis found. Nutrition Assessment Subjective assessment / comments: Referral received for assess and treat. RD is familiar with patient from previous admit to [facility]. Patient is s/p PEG placement 04/[address] Godoy. Pt admitted due to aspirating on cookie. RD will provide PEG feedings for continuous needs at this time. Nutrition-Related Hx: Appetite: fair and poor Nausea: No Vomiting: No Diarrhea: No Respiratory support:2 liters NC Last Bowel Movement:04/17/23 Malnutrition Screening Tool: Nutrition Risk Screening (MST) Have you recently lost weight without trying?: 4- Greater than 33 lb Have you been eating poorly because of decreased appetite?: 1- Yes Malnutrition Screening Tool Score: 5 Nutrition: 3-->adequate Anthropometrics: Ht Readings from Last 1 Encounters: 04/19/23 1.854 m (6' 1) Wt Readings from Last 15 Encounters: 04/19/23 77.3 kg (170 lb 6.4 oz) 04/08/23 78.5 kg (173 lb) 04/02/23 75.3 kg (166 lb) 03/18/23 80.3 kg (177 lb) 03/03/23 78.7 kg (173 lb 6.4 oz) 02/21/23 78.7 kg (173 lb 9.6 oz) 08/13/22 87.6 kg (193 lb 3.2 oz) 02/07/22 91.6 kg (202 lb) 12/04/21 91 kg (200 lb 9.6 oz) 11/08/21 93.3 kg (205 lb 9.6 oz) 07/18/21 93.1 kg (205 lb 3.2 oz) 04/18/21 97.8 kg (215 lb 9.6 oz) 01/24/21 102 kg (224 lb 12.8 oz) 08/08/20 103.1 kg (227 lb 3.2 oz) 02/15/20 103.4 kg (228 lb) [place] body weight: 79.9 kg (176 lb 2.4 oz) Body mass index is 22.48 kg/m . Classified as: Healthy range Recent weight loss: N/A Nutrient Needs: Estimated calorie needs: 4156-3961 kcal(20-25 kcal/kg IBW) Estimated protein needs: 84-97 gms(1-1.15 gm/kg IBW) Estimated fluid needs: 4718-6453 ml(20-25 ml/kg IBW, or per provider) Intake Evaluation: Current Intakes: NPO x 1 day(s) RD requesting that nursing documented all I/O in flowsheets per hospital policy: Intake & Output (No Intravenous Volume) under Intake Fluid Assessment: Net IO Since Admission: No IO data has been entered for this period [04/19/231924] 1 L fluid = 1 kg body weight EN Rec Enteral feeding Jevity 1.2 Goal rate 70 ml/hr Duration Continuous Total mL fluids from EN 1356 Total kcal from EN 2016 Protein from EN 93 Water flush 108 ml every 4 hours TOTAL KCAL 2015 TOTAL PROTEIN 93 TOTAL mL FLUIDS 2004 ml Current Diet Orders Procedures DIET NPO WITHOUT meds All nutrition/hydration and medications should be administered via PEG. Patient should complete toothbrushing of all oral surfaces 3x/day to reduce the risk of pneumonia given high probability of aspiration of secretions. Standing Status: Standing Number of Occurrences: 1 Order Specific Question: NPO Meds: Answer: WITHOUT meds No Known Allergies Nutrition Related Laboratory Values: Lab Results Component Value Date GLUCOSE 172 (H) 04/19/2023 GLUCOSE 117 (H) 04/08/2023 GLUCOSE 103 (H) 03/31/2023 HGBA1C 5.8 08/09/2022 SODIUM 141 04/19/2023 POTASSIUM 3.9 04/19/2023 MAGNESIUM 1.9 04/19/2023 PHOSPHORUS 2.9 04/19/2023 CALCIUM 8.9 04/19/2023 ALBUMIN 3.7 04/19/2023 PREALBUMIN 17.2 (L) 04/19/2023 TP 7.5 03/31/2023 BUN 21 (H) 04/19/2023 CREATSERUM 0.75 04/19/2023 AST 27 03/31/2023 ALT 19 03/31/2023 CRP 22.7 (H) 04/19/2023 HGB 14.2 04/19/2023 HCT 41.8 (L) 04/19/2023 WBC 10.0 04/19/2023 RBC 4.75 04/19/2023 CHOLESTEROL 161 08/09/2022 TRIG 146 08/09/2022 HDL 51 08/09/2022 LDLCALC 81 08/09/2022 PMH & PSH: Past Medical History: Diagnosis Date Abnormal glucose Bilateral leg edema BPH without urinary obstruction Chronic kidney disease (CKD), stage I Degenerative joint disease Enthesopathy Essential hypertension, benign Fatigue Former smoker 2 PPD x46 years, quite 09/19/2008 GERD (gastroesophageal reflux disease) Hepatic steatosis Hyperlipidemia Impotence of organic origin Insomnia Obesity Testicular hypofunction Tongue cancer Stage IIB, T2, N1, 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 Chemo/RT with Cisplatin and RT and Ethyol. RT completed 02/28/09. Past Surgical History: Procedure Laterality Date NECK SURGERY 2008 for cancer INGUINAL HERNIA REPAIR 1988 REMOVAL CATARACT (PEM) Bilateral VASECTOMY Nutrition Diagnosis NI-2.1 Inadequate oral intake related to decreased ability to consume sufficient energy as evidenced by patient with PEG tube placed 04/07/23 due to tongue cancer and previous weight loss due to poor oral intakes. Interventions Provide Jevity 1.2 at 30 mL/hr and advance by 20 mL q8h if well tolerated until goal rate of 70 mL/hr is reached Provide 108 mL free water flush q4h Monitoring and Evaluation Enteral Monitoring: Elevate head of bed 30-45 degrees while feeding Check gastric residuals every 4 hours when initiating feeding. May check every 6-8 hours once goal rate is achieved Hold gastric feeds for residuals more than 500 mL. Avoid holding feeds for residuals < 500 mL without other signs of intolerance and consider a prokinetic agent for GRV volumes 250-500 mL If unable to meet caloric goals after 7-10 days, consider initiating supplemental parenteral nutrition Reassess goal feed rate on an ongoing basis Daily lab draws: Phosphorus Magnesium Sodium Potassium Blood Glucose Every three days draw triglyceride lab Do not put blue dye or coca cola (or similar products) into the feeding tube Patient at high nutritional risk. Reassess 3 x week. Available by consult. Nutrition Goals: Meet estimated nutrition requirements through enteral nutrition support Pt to tolerate enteral nutrition Maintain current weight and prevent weight loss Preserve lean body mass Prevent nutrient deficiencies Maintain electrolyte and fluid balance Monitor patient weight, labs, and tolerance to enteral nutrition Daily weights @ 4 AM I/O documentation of all fluids, EN, and PO intake Matthew Soto RD LD Registered Dietitian, Licensed Dietitian 04/19/23 04/19/231910 Oxygen Therapy RT Intervention Oxygen Therapy O2 Device room air (at rest, awake. Checked on ear (on finger 84%)) In Use no/available for prn use Oximeter Type spot-check O2 Sat (%) 90 % Patient denies SOB. Left on room air Oxygen saturation 84% on room air at rest. Oxygen saturation 94% on 2L/m at rest. [facility] SPEECH-LANGUAGE PATHOLOGY Inpatient Clinical Dysphagia Evaluation Date of Admission: 04/19/2023 Date of Evaluation: 04/19/2023 Attending Physician: Burton George MD Admitting Diagnosis: No diagnosis found. Treating Diagnosis: Oropharyngeal Dysphagia R13.12 Current Method of Nutrition: NPO without meds History of Presenting Illness: Amy Sun is a 72 y.o. male who presents to [facility] for evaluation of aspiration pneumonia. He reports he was unable to swallow a cookie and aspirated it. 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 Patient reports loss of 70 - 80 lbs over the past year. Patient has recently underwent PEG tube placement on 04/07/23 and was to begin outpatient dysphagia interventions. Per H&P, patient has said he is able to eat/drink what he likes. Upon clinician entry to room, patient was awake and upright in bed. He declined to complete ice chip trials or oral hygiene with clinician as part of a brief evaluation - thus, this assessment was completed indirectly. Patient reports fear of aspirating the ice chips, thus he may be more accepting of his dysphagia. Prior SOFTWARE APPLICATION TESTER history/Instrumentals: MBS at this facility on 03/04/2023: Pt presents with moderate oral and severe pharyngeal dysphagia. Oral phase is characterized by disorganized manipulation and transfer, decreased bolus control with loss of bolus to floor of mouth and pharynx, and incomplete oral clearing with swallow. Mastication not assessed as no chewable solids were given due to severity of impairment noted with other consistencies. Pharyngeal phase is characterized by decreased tongue base retraction, pharyngeal constriction, and laryngeal elevation, with near absent anterior hyoid excursion and no epiglottal inversion. Liquid boluses noted to passively spill from pharynx into upper esophagus, which often appeared dilated/open. Laryngeal closure is incomplete, leading aspiration of thin liquids and nectar liquids while pt performing multiple swallow attempts to clear single bolus at a time. Aspiration events are silent, and cued cough inconsistently clears only a portion of penetration/aspiration. With honey liquids, there is deep penetration to the level of the vocal folds, without immediate aspiration. Pharyngeal residue is severe and spread diffusely across all consistencies tested, with multiple swallows minimally effective in reducing pharyngeal residue. With pudding trial, entire bolus remains in valleculae despite multiple swallow attempts, until it is eventually expectorated and spit out. Risk for aspiration is extremely high across all consistencies, given impaired pharyngeal clearance and inability to achieve complete laryngeal closure. Unable to recommend a safe PO diet level at this time; however, per discussion with pt and spouse, pt intends to continue PO intake with known risk for aspiration. Therefore, discussed food/liquid levels that would be most comfortable to swallow and carry the least risk of complete airway obstruction. As no clear benefit for thickened liquids is seen, thin liquids may be consumed with ongoing risk for aspiration. To avoid complete airway obstruction with solid food, recommend pureed texture for foods, though pt may find it easier to clear puree if it is thinned down some or coated with extra moisture (I.e. gravies/sauces) given chronic xerostomia. Pt reports plan to have PEG tube placed in a couple of weeks, and he is encouraged to pursue this as swallowing impairment may prevent him from taking adequate nutrition/hydration orally. Recommend outpatient ST to address dysphagia, and pt Is in agreement to this as well. MBS 07/30/22 at [facility] Amy Sun presents with mild to moderate oropharyngeal dysphagia in the setting of referral for xerostomia with complaints of globus sensation and difficulties with pills. Pt has hx of tongue cancer s/p radiation in 2008. Per , pt had extensive radiation. Pt with visible scar extending from L ear, below hyolaryngeal region, up towards R ear. Pt reporting tongue scraping vs removal prior to initiation of chemo and radiation. Pt additionally reports he has lost about 60 lbs in the past year, unintentionally. Oral phase characterized by poor bolus form with loss of bolus to the floor of mouth and posteriorly, piecemeal deglutition with liquids, disorganized mastication with delayed AP transit and presence of oral residuals which were partially cleared with repeat swallow and liquid wash. Pharyngeal phase characterized by passive bolus flow with inconsistent swallow initiation at the level of the vallecula and pyriforms, partial hyolaryngeal excursion, incomplete epiglottic inversion, and incomplete laryngeal vestibule closure resulting in deep penetration and aspiration of thin liquids with no sensory response. Cued cough was ineffective in clearing material from below vocal cords. Chin tuck ineffective in reducing deep penetration / aspiration. Pt with diminished pharyngeal constriction and presence of diffuse pharyngeal residuals which were not cleared despite cued repeat swallows and liquid wash. Pt noted with increased residuals following trials of increased viscosity which were not cleared resulting in deep penetration with aspiration of residuals on subsequent swallows. Pt with laryngeal vestibule and vocal chord residue which was consistently aspirated on repeat swallows. Pt walks independently. He is on room air with permanent dentition and good oral hygiene. Pt plays golf twice a week and denies recent dx of pneumonia. Given above, recommend continuing with thin liquids, regular solids, and medications in puree. Additionally, recommend OP ST to address aforementioned deficits. Will ask Dr. Holder for referral. MBS completed at this facility in 2018 recommending mechanically advanced and thin liquids. 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 Chemo/RT with Cisplatin and RT and Ethyol. RT completed 02/28/09. Past Surgical History: Procedure Laterality Date NECK SURGERY 2008 for cancer INGUINAL HERNIA REPAIR 1987 REMOVAL CATARACT (PEM) Bilateral VASECTOMY Evaluation: Position For Evaluation: upright Anticipatory Phase: Intact Exam limited/influenced by cognition: No Current Respiratory Status: Nasal Cannula: 2 LPM ORAL MOTOR EXAM Mandibular Strength:Mild ROM: Mild Labial Strength:WFL ROM: WFL Coordination:WFL Lingual Strength:Mild ROM: Mild-Moderate Coordination:Mild Oral Mucosa Moderate Velar Movement WFL Vocal Quality WFL Dentition full dentures Oral Motor Summary: Subjectively impaired lingual strength and ROM. TRIAL RESPONSE Ice Chips Patient declined Unable to assess ORAL PHASE: DNT Oral Phase Summary: Patient declined PO trials. Presumed deficits in posterior bolus control, lingual bolus formation and propulsion. PHARYNGEAL PHASE: Documented impairment Perceived Swallow Subjectively reduced elevation upon palpation Pharyngeal Phase Summary: Presumed continuation of deficits identified on MBS. Laryngeal elevation/excursion is subjectively impaired per palpation of a dry swallow. STRATEGIES TRIALED/Response N/A Laureen Swallow Screen: (administered by: N/A - Not completed) Clinical Impressions Amy Sun is a 72 y.o. male seen 04/19/2023 for dysphagia evaluation given chronic aspiration secondary to HNC. He presents with presumed continuation of oral phase and pharyngeal phase dysphagia as identified on MBS in February. As stated in that report, anticipate that there is no safe consistency that patient can tolerate without aspiration. Ice chips after oral hygiene may facilitate further disuse atrophy. Results and recommendations discussed with patient and RN, including diet recommendations of NPO - no oral meds. Diet Recommendations and Strategies NPO without meds ORAL HYGIENE 3X/DAY PNEUMONIA PROPHYLAXIS Oral hygiene is paramount in reducing the risk of pulmonary compromise due to aspiration and is more effective than diet modification alone. Patient should have dentures removed and cleaned at least once daily, and toothbrushing of the oral cavity should be completed a minimum of 3x/day after meals. Even NPO patients are at risk to aspirate secretions. Combined with effective oral hygiene, thin liquid water is pH neutral and is thus less likely to result in a pneumonia if aspirated, compared to thickened liquids which have xanthum gum, sugar, and other additives that can more readily culture bacteria. Plan of Care: Frequency: 4x/week Duration: 1 week Goals: Residential: Amy Sun will improve oropharyngeal function for safe secretion management. Short term: SOFTWARE APPLICATION TESTER will assist in establishing adequate oral hygiene for reduced risk of pulmonary compromise given dysphagia diagnosis. Amy Sun and/or family will demonstrate adequate comprehension of clinical education regarding dysphagia diagnosis, aspiration risks, benefits and burdens, diet, and treatment recommendations. Marium Bee M.A. [facility] - SOFTWARE APPLICATION TESTER Speech-Language Pathologist Total Treatment Time: 15 minutes documented in this encounter [facility] 04-19-2023 Nurse Note Assessment unchanged from previous unless otherwise noted in flowsheets. Patient denies any pain or discomfort, respirations even and unlabored. Utilizing 2L of oxygen via nasal cannula. Patient's spouse present at bedside. Call light and personal items within reach. Patient denies any needs at this time. [facility] 04-19-2023 Progress note Formatting of t his note might be different from the original. OT consult received and chart reviewed, patient admitted for COPD and aspiration, patient approached for OT evaluation he states he is independent with ADLs and mobility, noted this therapist saw him during last hospital stay and was assessed as independent, will sign off due to above [facility] 04-19-2023 Nurse Note Assessment unchanged from previous unless otherwise noted in flowsheets. Patient denies any pain or discomfort at this time. Respirations even and unlabored. Call light and personal items within reach. Patient denies any needs at this time. [facility] 04-19-2023 Plan of care note Problem: Dysphagia (Adult) Goal: Functional/Safe Swallow Description: Diet Recommendations and Strategies NPO without meds ORAL HYGIENE 3X/DAY PNEUMONIA PROPHYLAXIS Oral hygiene is paramount in reducing the risk of pulmonary compromise due to aspiration and is more effective than diet modification alone. Patient should have dentures removed and cleaned at least once daily, and toothbrushing of the oral cavity should be completed a minimum of 3x/day after meals. Even NPO patients are at risk to aspirate secretions. Combined with effective oral hygiene, thin liquid water is pH neutral and is thus less likely to result in a pneumonia if aspirated, compared to thickened liquids which have xanthum gum, sugar, and other additives that can more readily culture bacteria. Plan of Care: Frequency: 4x/week Duration: 1 week Goals: Blend Plant Operator: Amy Sun will improve oropharyngeal function for safe secretion management. Short term: SOFTWARE APPLICATION TESTER will assist in establishing adequate oral hygiene for reduced risk of pulmonary compromise given dysphagia diagnosis. Amy Sun and/or family will demonstrate adequate comprehension of clinical education regarding dysphagia diagnosis, aspiration risks, benefits and burdens, diet, and treatment recommendations. 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 MBS completed 03/04/23 stated there was no consistency that Mr. Sun could safely tolerate. Education provided about importance of oral hygiene for NPO patients given risk of aspiration of secretions thereby continually reintroducing bacterial jillian into the respiratory system. Ongoing education needed for generalization of knowledge, compliance with oral hygiene protocol, and comprehension of dysphagia diagnosis. [facility] 04-19-2023 History and physical note History and Physical Examination 04/19/23 11:39 AM Chief Complaint: Aspiration in airway History of Present Illness: Patient is a 72 y.o. male presents to [facility] for evaluation of aspiration pneumonia. The patient reports that while he was eating a cookie yesterday, he was unable to swallow and aspirated it. He was taken to [place] ED, where he required 6L of O2 due to severe hypoxia ranging in the low 80%, though he has a Hx of COPD with chronic cough d/t cigarette smoking, he is not on O2 at home. He was initiated on Zosyn and Levaquin for treatment of aspiration pneumonia. The patient stabilized then was eventually transferred here. He has had episodes of aspiration pneumonia in the past requiring hospitalization and treatment. Per patient, he feels great and has no complaints. Patient has a prevalent PMHx of squamous cell carcinoma of the base of the tongue diagnosed in 2008 with subsequent radiation and chemo 13 years ago. He reports that within the last year he lost about 70-80 lbs and has been undergoing further workup. However, d/t insufficient nutrition and oral intake of both liquids and solid foods had been poorly tolerated, the patient underwent PEG tube placement on 04/07/2023 POD#12 without complications. He initially had been scheduled for speech consult the day after the procedure, however, the patient cancelled the appointment. Per the patient, he states that he is able to eat/drink what he would like, however, the records from speech and surgery did not indicate as such. Further workup performed, no leukocytosis, however, there was elevation of neutrophils, ESR at 35, CRP at 22.7, and decreased lymphocytes.BNP and procalcitonin were both WNL CT of the chest was positive for RLL bronchiolitis and centrilobular emphysema and LLL nodule. PEG tube placement was good. CXR was negative. BC are still pending. Objective: Patient Active Problem List Diagnosis Date Noted COPD (chronic obstructive pulmonary disease) with acute bronchitis 04/19/2023 Dysphagia 04/19/2023 Cough 04/19/2023 Squamous cell carcinoma of tongue 04/19/2023 Hyperglycemia 04/19/2023 Aspiration pneumonia 04/19/2023 S/P percutaneous endoscopic gastrostomy (PEG) tube placement 04/19/2023 Failure to thrive in adult 04/07/2023 S/P percutaneous endoscopic gastrostomy (PEG) tube placement 04/07/2023 Pneumonia 03/03/2023 Leukocytosis 03/03/2023 Cough 03/03/2023 Fever 03/03/2023 Dry heaves 03/03/2023 Elevated troponin I level 03/03/2023 Severe protein-calorie malnutrition 03/02/2023 Aspiration into airway 12/06/2022 Dysphagia 07/23/2022 Xerostomia due to radiotherapy 07/23/2022 Vitelliform lesion of macula 11/01/[address] nodules on CT 01/15/2019 Hyperopia of both eyes with astigmatism and presbyopia 06/02/2018 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 (central serous retinopathy), 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 Epiretinal membrane (ERM) of left eye 06/02/2017 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/02/2017 Benign prostatic hyperplasia with lower urinary tract symptoms 07/31/2016 Arthritis 07/31/2016 Impotence of organic origin Abnormal glucose Testicular hypofunction Fatigue Enthesopathy Gastroesophageal reflux disease without esophagitis Hyperlipidemia BPH without urinary obstruction Degenerative joint disease Bilateral leg edema Chronic kidney disease (CKD), stage I Obesity Tear film insufficiency 06/05/2016 Pseudophakia of both eyes 04/06/2015 Essential hypertension 03/14/2015 Astigmatism of left eye 03/14/2015 Hepatic steatosis Malignant neoplasm of base of tongue 11/25/2008 Past Medical History: Diagnosis Date Abnormal glucose Bilateral leg edema BPH without urinary obstruction Chronic kidney disease (CKD), stage I Degenerative joint disease Enthesopathy Essential hypertension, benign Fatigue Former smoker 2 PPD x46 years, quite 09/19/2008 GERD (gastroesophageal reflux disease) Hepatic steatosis Hyperlipidemia Impotence of organic origin Insomnia Obesity Testicular hypofunction Tongue cancer Stage IIB, T2, N1, 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 Chemo/RT with Cisplatin and RT and Ethyol. RT completed 02/28/09. Past Surgical History: Procedure Laterality Date NECK SURGERY 2008 for cancer INGUINAL HERNIA REPAIR 1988 REMOVAL CATARACT (PEM) Bilateral VASECTOMY Social History Tobacco Use Smoking status: Former Types: Cigarettes Smokeless tobacco: Never Substance Use Topics Alcohol use: No Family History Problem Relation Age of Onset Heart Disease - Other Father Heart Disease - Other Brother Heart Disease - Other Other Coronary Artery Disease Other No known problems Mother Medications Prior to Admission Medication Sig Dispense Refill Last Dose Wimbran-Pnulrnzikdogi-Pyytgypc (EXCEDRIN PO) Take by mouth. dutasteride (Avodart) 0.5 MG capsule Take 1 capsule by mouth daily. 14 capsule 0 Multiple Vitamins-Minerals (CENTRUM SILVER 50+MEN PO) Take by mouth. pantoprazole Sodium 40 MG Pack Take 1 packet by mouth every morning before breakfast. am pilocarpine 5 MG tablet Take 1 tablet by mouth Three times a day. Rosuvastatin (Crestor) 5 MG tablet Take 1 tablet by mouth daily. 14 tablet 0 sulindac 150 MG tablet Take 1 tablet by mouth 2 times daily. 180 tablet 1 SUMAtriptan 50 MG tablet Take 1 tablet by mouth Every 2 hours as needed. Testosterone 25 MG/2.5GM (1%) Gel gel Place 2.5 g on skin daily. 225 g 1 Thiamine 100 MG tablet Take 1 tablet by mouth daily. traMADol 50 MG tablet Take 1 tablet by mouth 3 times daily as needed. 21 tablet 0 Valsartan 160 MG tablet Take 1 tablet by mouth daily. 14 tablet 0 No Known Allergies Review of Systems: Ten systems reviewed and found to be negative unless otherwise stated in the history and present illness. PHYSICAL EXAM: Patient Vitals for the past 8 hrs: BP Temp Temp src Pulse Resp SpO2 Height Weight 04/19/23 0812 121/64 97.5 F (36.4 C) Oral 66 17 95 % -- -- 04/19/23 0650 121/61 -- -- -- 18 -- -- -- 04/19/23 0630 129/74 -- -- -- 16 -- -- -- 04/19/23 0615 135/79 98.2 F (36.8 C) Temporal 71 16 90 % -- -- 04/19/23 0600 -- -- -- -- -- -- 1.854 m (6' 1) 77.3 kg (170 lb 6.4 oz) General: Patient resting comfortably. Awake. No acute distress. HEENT: Normalcephalic, atraumatic. Pupils equal, round, reactive, to light and accomodation B/L. Bilateral nares patent without obvious drainage. Oral mucosa moist, pink, intact without ulcers or lesions. Neck: No JVD, no thyromegaly, no anterior or posterior lymphadenopathy. Cardiovascular: Regular rate and rhythm, without murmurs, rubs, or gallops. Respiratory: Currently on O2 via NC. Bilateral Upper and Lower Lobes anterior and posteriorly without wheezes, rales, or rhonchi. CTAB. Breathing is non-labored. No cough. Abdomen: Soft, rounded, non-tender. Bowel sounds present x4 quadrants. PEG tube is without erythema, drainage, or signs of infection. Extremities: No edema, clubbing or cyanosis, pulses palpable 2+ distally. Skin: Warm, Dry, Intact. No obvious rashes or lesions noted. Neuro: Patient awake, alert, orientedx3. Cranial nerves 2-12 grossly intact upon seated examination. No focal defiects noted. M/S: No joint errythema or pain noted; no clubbing Diagnostics: Lab Results Component Value Date WBC 10.0 04/19/2023 HGB 14.2 04/19/2023 HCT 41.8 (L) 04/19/2023 PLATELET 214 04/19/2023 MCV 88.0 04/19/2023 @LASTMAGNESIUM(1D,2)@ Lab Results Component Value Date INR 1.12 (H) 04/19/2023 INR 1.31 (H) 03/04/2023 PT 14.5 (H) 04/19/2023 PT 16.4 (H) 03/04/2023 Lab Results Component Value Date CREATSERUM 0.75 04/19/2023 BUN 21 (H) 04/19/2023 SODIUM 141 04/19/2023 POTASSIUM 3.9 04/19/2023 CHLORIDE 101 04/19/2023 CO2 32 (H) 04/19/2023 Impression and Plan: Principal Problem: Aspiration into airway : BC still pending. Will consult speech. Patient has a Hx of multiple episodes of aspiration pneumonia w/ Hx of tongue cancer. Medically noncompliant with diet restrictions Active Problems: COPD (chronic obstructive pulmonary disease) Dysphagia: consult speech Cough: consult speech Squamous cell carcinoma of tongue - Continue outpatient follow up with [facility] Hyperglycemia S/P percutaneous endoscopic gastrostomy (PEG) tube placement: continue feeds through PEG tube. ST recommending continued NPO status PT OT SS for dc planning GI/DVT prophylaxis with protonix and Lovenox This plan of care was initiated in collaboration with the attending physician Dr. Heddleson Please note Portions of this note utilized [employer] dictation software, please excuse any typographical or grammatical errors I spent a total of 6 minutes in management of this patient. The details of my visit are listed in my documentation above. [facility] Medicine Associated attestation - Angela Fitch DO - 04/19/2023 8:00 PM EST Patient seen and examined independently. Meds, labs, and radiographs reviewed. +Transfer from OSH - Despite PEG and NPO status - patient 'choked' on a cookie. Recent DC 04/08/23. All additional ROS NEG. NAD speaking in full sentences. HEENT NC/AT PERRLA MM moist w/o ulceration No TM or JVD. Lungs diminished and heart tones regular on exam. Abdo Soft NT/ND w/ BS. No LE edema or rash. No focal deficits noted on exam. CT Chest reviewed - IMPRESSION: 1. Right lower lobe bronchiolitis and peribronchial thickening. 2. Centrilobular emphysema. Left lower lobe 1.6 mm pulmonary nodule. 3. Stable posterior medial right lower lobe juxtapleural 3 x 1 cm consolidation adjacent to a sessile thoracic endplate bone spur. 4. Dilated pulmonary artery may be seen with pulmonary hypertension. 5. PEG tube terminates within the stomach. Improved RLL infiltrates vs 03/03/23 CT comparison. Procal 0.07 CRP [address] eval reviewed - continue NPO status. Empiric Levaquin and Solumedrol. All questions and concerns addressed w/ patient at BS in regard to plan of care. I agree with assessments and plan of care. I personally spent >50% of the total time spent of 26 min on this date's billable encounter including all of the MDM for this encounter. OBS admit. [facility] 04-19-2023 History and physical note History and Physical Examination 04/19/23 11:39 AM Chief Complaint: Aspiration in airway History of Present Illness: Patient is a 72 y.o. male presents to [facility] for evaluation of aspiration pneumonia. The patient reports that while he was eating a cookie yesterday, he was unable to swallow and aspirated it. He was taken to [place] ED, where he required 6L of O2 due to severe hypoxia ranging in the low 80%, though he has a Hx of COPD with chronic cough d/t cigarette smoking, he is not on O2 at home. He was initiated on Zosyn and Levaquin for treatment of aspiration pneumonia. The patient stabilized then was eventually transferred here. He has had episodes of aspiration pneumonia in the past requiring hospitalization and treatment. Per patient, he feels great and has no complaints. Patient has a prevalent PMHx of squamous cell carcinoma of the base of the tongue diagnosed in 2008 with subsequent radiation and chemo 13 years ago. He reports that within the last year he lost about 70-80 lbs and has been undergoing further workup. However, d/t insufficient nutrition and oral intake of both liquids and solid foods had been poorly tolerated, the patient underwent PEG tube placement on 04/07/2023 POD#12 without complications. He initially had been scheduled for speech consult the day after the procedure, however, the patient cancelled the appointment. Per the patient, he states that he is able to eat/drink what he would like, however, the records from speech and surgery did not indicate as such. Further workup performed, no leukocytosis, however, there was elevation of neutrophils, ESR at 35, CRP at 22.7, and decreased lymphocytes.BNP and procalcitonin were both WNL CT of the chest was positive for RLL bronchiolitis and centrilobular emphysema and LLL nodule. PEG tube placement was good. CXR was negative. BC are still pending. Objective: Patient Active Problem List Diagnosis Date Noted COPD (chronic obstructive pulmonary disease) with acute bronchitis 04/19/2023 Dysphagia 04/19/2023 Cough 04/19/2023 Squamous cell carcinoma of tongue 04/19/2023 Hyperglycemia 04/19/2023 Aspiration pneumonia 04/19/2023 S/P percutaneous endoscopic gastrostomy (PEG) tube placement 04/19/2023 Failure to thrive in adult 04/07/2023 S/P percutaneous endoscopic gastrostomy (PEG) tube placement 04/07/2023 Pneumonia 03/03/2023 Leukocytosis 03/03/2023 Cough 03/03/2023 Fever 03/03/2023 Dry heaves 03/03/2023 Elevated troponin I level 03/03/2023 Severe protein-calorie malnutrition 03/02/2023 Aspiration into airway 12/06/2022 Dysphagia 07/23/2022 Xerostomia due to radiotherapy 07/23/2022 Vitelliform lesion of macula 11/01/[address] lung nodules on CT 01/15/2019 Hyperopia of both eyes with astigmatism and presbyopia 06/02/2018 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 (central serous retinopathy), 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 Epiretinal membrane (ERM) of left eye 06/02/2017 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/02/2017 Benign prostatic hyperplasia with lower urinary tract symptoms 07/31/2016 Arthritis 07/31/2016 Impotence of organic origin Abnormal glucose Testicular hypofunction Fatigue Enthesopathy Gastroesophageal reflux disease without esophagitis Hyperlipidemia BPH without urinary obstruction Degenerative joint disease Bilateral leg edema Chronic kidney disease (CKD), stage I Obesity Tear film insufficiency 06/05/2016 Pseudophakia of both eyes 04/06/2015 Essential hypertension 03/14/2015 Astigmatism of left eye 03/14/2015 Hepatic steatosis Malignant neoplasm of base of tongue 11/25/2008 Past Medical History: Diagnosis Date Abnormal glucose Bilateral leg edema BPH without urinary obstruction Chronic kidney disease (CKD), stage I Degenerative joint disease Enthesopathy Essential hypertension, benign Fatigue Former smoker 2 PPD x46 years, quite 09/19/2008 GERD (gastroesophageal reflux disease) Hepatic steatosis Hyperlipidemia Impotence of organic origin Insomnia Obesity Testicular hypofunction Tongue cancer Stage IIB, T2, N1, 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 Chemo/RT with Cisplatin and RT and Ethyol. RT completed 02/28/09. Past Surgical History: Procedure Laterality Date NECK SURGERY 2008 for cancer INGUINAL HERNIA REPAIR 1988 REMOVAL CATARACT (PEM) Bilateral VASECTOMY Social History Tobacco Use Smoking status: Former Types: Cigarettes Smokeless tobacco: Never Substance Use Topics Alcohol use: No Family History Problem Relation Age of Onset Heart Disease - Other Father Heart Disease - Other Brother Heart Disease - Other Other Coronary Artery Disease Other No known problems Mother Medications Prior to Admission Medication Sig Dispense Refill Last Dose Rqtqezw-Kgnzuglozbwjy-Nojqzaum (EXCEDRIN PO) Take by mouth. dutasteride (Avodart) 0.5 MG capsule Take 1 capsule by mouth daily. 14 capsule 0 Multiple Vitamins-Minerals (CENTRUM SILVER 50+MEN PO) Take by mouth. pantoprazole Sodium 40 MG Pack Take 1 packet by mouth every morning before breakfast. am pilocarpine 5 MG tablet Take 1 tablet by mouth Three times a day. Rosuvastatin (Crestor) 5 MG tablet Take 1 tablet by mouth daily. 14 tablet 0 sulindac 150 MG tablet Take 1 tablet by mouth 2 times daily. 180 tablet 1 SUMAtriptan 50 MG tablet Take 1 tablet by mouth Every 2 hours as needed. Testosterone 25 MG/2.5GM (1%) Gel gel Place 2.5 g on skin daily. 225 g 1 Thiamine 100 MG tablet Take 1 tablet by mouth daily. traMADol 50 MG tablet Take 1 tablet by mouth 3 times daily as needed. 21 tablet 0 Valsartan 160 MG tablet Take 1 tablet by mouth daily. 14 tablet 0 No Known Allergies Review of Systems: Ten systems reviewed and found to be negative unless otherwise stated in the history and present illness. PHYSICAL EXAM: Patient Vitals for the past 8 hrs: BP Temp Temp src Pulse Resp SpO2 Height Weight 04/19/23 0812 121/64 97.5 F (36.4 C) Oral 66 17 95 % -- -- 04/19/23 0650 121/61 -- -- -- 18 -- -- -- 04/19/23 0630 129/74 -- -- -- 16 -- -- -- 04/19/23 0615 135/79 98.2 F (36.8 C) Temporal 71 16 90 % -- -- 04/19/23 0600 -- -- -- -- -- -- 1.854 m (6' 1) 77.3 kg (170 lb 6.4 oz) General: Patient resting comfortably. Awake. No acute distress. HEENT: Normalcephalic, atraumatic. Pupils equal, round, reactive, to light and accomodation B/L. Bilateral nares patent without obvious drainage. Oral mucosa moist, pink, intact without ulcers or lesions. Neck: No JVD, no thyromegaly, no anterior or posterior lymphadenopathy. Cardiovascular: Regular rate and rhythm, without murmurs, rubs, or gallops. Respiratory: Currently on O2 via NC. Bilateral Upper and Lower Lobes anterior and posteriorly without wheezes, rales, or rhonchi. CTAB. Breathing is non-labored. No cough. Abdomen: Soft, rounded, non-tender. Bowel sounds present x4 quadrants. PEG tube is without erythema, drainage, or signs of infection. Extremities: No edema, clubbing or cyanosis, pulses palpable 2+ distally. Skin: Warm, Dry, Intact. No obvious rashes or lesions noted. Neuro: Patient awake, alert, orientedx3. Cranial nerves 2-12 grossly intact upon seated examination. No focal defiects noted. M/S: No joint errythema or pain noted; no clubbing Diagnostics: Lab Results Component Value Date WBC 10.0 04/19/2023 HGB 14.2 04/19/2023 HCT 41.8 (L) 04/19/2023 PLATELET 214 04/19/2023 MCV 88.0 04/19/2023 @LASTMAGNESIUM(1D,2)@ Lab Results Component Value Date INR 1.12 (H) 04/19/2023 INR 1.31 (H) 03/04/2023 PT 14.5 (H) 04/19/2023 PT 16.4 (H) 03/04/2023 Lab Results Component Value Date CREATSERUM 0.75 04/19/2023 BUN 21 (H) 04/19/2023 SODIUM 141 04/19/2023 POTASSIUM 3.9 04/19/2023 CHLORIDE 101 04/19/2023 CO2 32 (H) 04/19/2023 Impression and Plan: Principal Problem: Aspiration into airway : BC still pending. Will consult speech. Patient has a Hx of multiple episodes of aspiration pneumonia w/ Hx of tongue cancer. Medically noncompliant with diet restrictions Active Problems: COPD (chronic obstructive pulmonary disease) Dysphagia: consult speech Cough: consult speech Squamous cell carcinoma of tongue - Continue outpatient follow up with [facility] Hyperglycemia S/P percutaneous endoscopic gastrostomy (PEG) tube placement: continue feeds through PEG tube. ST recommending continued NPO status PT OT SS for dc planning GI/DVT prophylaxis with protonix and Lovenox This plan of care was initiated in collaboration with the attending physician Dr. Fitch Please note Portions of this note utilized [employer] dictation software, please excuse any typographical or grammatical errors I spent a total of 6 minutes in management of this patient. The details of my visit are listed in my documentation above. [facility] Associated attestation - Angela Fitch, - 04/19/2023 8:00 PM EST Patient seen and examined independently. Meds, labs, and radiographs reviewed. +Transfer from OSH - Despite PEG and NPO status - patient 'choked' on a cookie. Recent DC 04/08/23. All additional ROS NEG. NAD speaking in full sentences. HEENT NC/AT PERRLA MM moist w/o ulceration No TM or JVD. Lungs diminished and heart tones regular on exam. Abdo Soft NT/ND w/ BS. No LE edema or rash. No focal deficits noted on exam. CT Chest reviewed - IMPRESSION: 1. Right lower lobe bronchiolitis and peribronchial thickening. 2. Centrilobular emphysema. Left lower lobe 1.6 mm pulmonary nodule. 3. Stable posterior medial right lower lobe juxtapleural 3 x 1 cm consolidation adjacent to a sessile thoracic endplate bone spur. 4. Dilated pulmonary artery may be seen with pulmonary hypertension. 5. PEG tube terminates within the stomach. Improved RLL infiltrates vs 03/03/23 CT comparison. Procal 0.07 CRP [address] eval reviewed - continue NPO status. Empiric Levaquin and Solumedrol. All questions and concerns addressed w/ patient at BS in regard to plan of care. I agree with assessments and plan of care. I personally spent >50% of the total time spent of 26 min on this date's billable encounter including all of the MDM for this encounter. OBS admit. documented in this encounter [facility] 04-19-2023 Plan of care note Problem: Skin Integrity Impairment, Risk/Actual (Adult) Goal: Identify Related Risk Factors and Signs and Symptoms Description: Related risk factors and signs and symptoms are identified upon initiation of Human Response Clinical Practice Guideline (CPG) Outcome: Progressing Goal: Skin Integrity/Wound Healing Description: Patient will demonstrate the desired outcomes by discharge/transition of care. Outcome: Progressing Problem: Patient Care Overview Goal: Plan of Care Review Outcome: Progressing Goal: Individualization & Mutuality Outcome: Progressing Goal: Discharge Needs Assessment Outcome: Progressing Goal: Interdisciplinary Rounds/Family Conf Outcome: Progressing Problem: Pain, Acute (Adult) Goal: Identify Related Risk Factors and Signs and Symptoms Description: Related risk factors and signs and symptoms are identified upon initiation of Human Response Clinical Practice Guideline (CPG) Outcome: Progressing Goal: Acceptable Pain Control/Comfort Level Description: Patient will demonstrate the desired outcomes by discharge/transition of care. Outcome: Progressing Problem: Infection, Risk/Actual (Adult) Goal: Identify Related Risk Factors and Signs and Symptoms Description: Related risk factors and signs and symptoms are identified upon initiation of Human Response Clinical Practice Guideline (CPG) Outcome: Progressing Goal: Infection Prevention/Resolution Description: Patient will demonstrate the desired outcomes by discharge/transition of care. Outcome: Progressing [facility] 04-19-2023 Nurse Note Pt arrived via transport to [place] [id number] at 0605. Here for aspiration, hypoxia, resp acidosis per report from [facility]. Miriam is here too. Assessment completed as charted. No SOB or pain. Oriented to room. Fall precautions in place. Pt & deny needs or questions at this time. [facility] 04-19-2023 Nurse Note Received report from Carmen at [facility] in [place]. Pt is on his way over now. [facility] 04-08-2023 Miscellaneous Notes Discharge instructions, new medications, and upcoming appointments reviewed with patient and . Patient and verbalized understanding and signed discharge acknowledgement. Printed discharge instructions and copy of signed acknowledgement provided to patient. All personal belongings given to patient. Patient denied any further needs. Patient discharged from unit to home via wc to personal vehicle. [facility] Pt tolerated 2 full feedings of Jevity 1.5cal, 237ml with 60ml h2o flush before and after. 1st feeding done via pump over 1 hour. 2nd feeding done via gravity. Pt and educated on feedings, scheduling, and troubleshooting. Pt and advised to call PCP or return call to [facility] for questions. Pt reports she also has contact information and instruction to call dietitian as needed. Referral received. Chart reviewed. Met with patient along with spouse Christa, who is at the bedside. Rob live in a [place]-style house in [place]. Kishor reports being active and independent and has many hobbies including golfing and bowling. He does not utilize any DME. He is current with PCP Dr. Gunjan Godoy. He has prescription drug coverage and medications are affordable. Both are retired from [employer] and report no financial concerns. Patient has been going to outpatient ST at [facility] and his therapist is supposed to be calling to him to schedule his next appointment. Christa states she will be managing the tube feeds at home and feels like she will be comfortable with the process after being educated by nursing staff here. Informed them CM is awaiting return phone call from [facility] to discuss process for getting tube feed and supplies. CM will continue to follow. 04/08/23 0838 Referral Information Arrived From operating room Readmission Information Was patient readmitted within 30 Days? No Information Source Information Source patient ;review of medical record;spouse Information Source Name Rob Sun Contact Information Rip Tailer/SW Added to Care Team Yes This Director Of Front Office is Primary Rip Tailer/SW Yes Rip Tailer Name Ro Hurst RNspiral spring winder[facility] Living Environment Lives With spouse Living Arrangements house Provides Primary Care For no one Primary Care Provided By self Support System Immediate family Able to Return to Prior Arrangements yes Functional Status Patient's Functional Status Prior To This Admission? Independent Are There Status Changes This Admission? No Changes Observed Since Admission? No Changes Observed Concerns With Patient Being Able To Care For Themselves At Discharge? Has Assistance (Friend, Family, Skilled Provider) Can Support Person Meet The Care Needs Of The Patient? Yes Employment/Financial Employed? Retired Employment/Financial Concerns no Source Of Income social security;pension/mcfp Financial Concerns none Insurance Medical Insurance Verified Yes Prescription Coverage Yes Initial Discharge Planning Home Care Services (SAP BW ARCHITECT) No Home Therapies ([employer] ARCHITECT) None DME (SAP [employer] ARCHITECT) None Medical Supplies (SAP [employer] ARCHITECT) None Patient Goal for Discharge Get better Anticipated discharge disposition Home Anticipated Services at Discharge Outpatient follow up;Speech Therapy Anticipated Changes Related to Illness none Current Discharge Risk >65 years of age Transportation Available car;family or friend will provide Home Care Services (SAP BW ARCHITECT) Additional Home Care Services (SAP [employer] ARCHITECT) no Assessment/Concerns to be Addressed Concerns To Be Addressed denies needs/concerns at this time On admission to [facility], from OR a dual RN initial assessment of skin condition was performed by Mara Woodson RN and DANIEL Lobo. Skin Assessment: Skin not within defined limits. PEG tube placement to abdomen Amador Score: 17 LDA Added:No Mara Woodson RN Associated Problem(s): S/P percutaneous endoscopic gastrostomy (PEG) tube placement POD#1 - Per Dr Godoy Routine post-op care per surgery recommendations Associated Problem(s): Malignant neoplasm of base of tongue Follows with Dr Brandon Follow-up outpatient as previously arranged Associated Problem(s): Hyperlipidemia Resume home medications Follow-up with PCP after discharge Associated Problem(s): Essential hypertension Continue home medications and monitor VS per protocol. Follow-up with PCP after discharge for further evaluation and management. Associated Problem(s): Dysphagia Secondary to tongue cancer S/p PEG placement - POD#1 C/s Dietary for TF Eval Per Surgery - Prefer Bolus feedings starting in AM documented in this encounter [facility] 04-08-2023 Nurse Note Discharge instructions, new medications, and upcoming appointments reviewed with patient and . Patient and verbalized understanding and signed discharge acknowledgement. Printed discharge instructions and copy of signed acknowledgement provided to patient. All personal belongings given to patient. Patient denied any further needs. Patient discharged from unit to home via wc to personal vehicle. [facility] 04-08-2023 Hospital Discharge instructions Mara Woodson RN - 04/08/2023 4:13 PM EST You may resume activities as tolerated. Mara Woodson RN - 04/08/2023 4:14 PM EST You may resume your regular diet as tolerated. Peg tubings as instructed. Mara Woodson RN - 04/08/2023 4:15 PM EST Call MD for: temperature > 100.4, persistent nausea or vomiting, severe uncontrolled pain, redness, tenderness or signs of infection (pain, swelling, redness, odor or green/yellow discharge around incision site), difficulty breathing, headache or visual disturbances, hives, persistent dizziness or light-headedness, extreme fatigue. Go to your nearest emergency department for all emergencies. Mara Woodson RN - 04/08/2023 4:19 PM EST Continue to hug a pillow when rising, changing positions, coughing, etc until discomfort dissipates. Keep peg site clean and dry. You may place a split gauze between the skin and tube disk for comfort. The following attachments cannot be sent through Care Everywhere.Pain and Pain Control ([facility]) ([place])PEG Tube Care (Vinod Machado) ([place])PEG (Percutaneous Endoscopic Gastrostomy): Post-op ([place])Feeding Tube: General Info ([place])Tube Feeding: Daily Log for Home (Vinod Machado) ([place])Feeding Tube: How to Flush ([employer]) ([place])documented in this encounter [facility] 04-08-2023 Nurse Note Pt tolerated 2 full feedings of Jevity 1.5cal, 237ml with 60ml h2o flush before and after. 1st feeding done via pump over 1 hour. 2nd feeding done via gravity. Pt and educated on feedings, scheduling, and troubleshooting. Pt and advised to call PCP or [facility] call to [facility] for questions. Pt reports she also has contact information and instruction to call dietitian as needed. [facility] 04-08-2023 History of Present illness Narrative Spoke with Kia Weaevr from [facility]. They unable to supply syringes and graduated cylinder without supplying the nutrition, and they are also unable to order Ensure due to national shortage. Updated patient and Christa at the bedside. Recommended to Christa that she order syringes off of [employer] and she states she will do this. Christa denies any further questions or concerns for CM prior to discharge. Patient sleeping at this time. Spoke with Christa at the bedside who is asking about having a nurse come into the home once or twice to make sure she is doing tube feeds correctly. Informed Christa of required homebound status for home health through Medicare and Christa states patient is definitely not homebound. She is agreeable for continued teaching/education while patient is in the hospital and also provided her with this nurse's business card for any needs post-discharge. Prescription for tube feed supplies obtained from Nish Wilson CNP. Prescription and referral information faxed to [facility] at [phone]. CM will continue to follow. Phone call placed to [employer]. They do not keep tube feed supplies in stock. Phone call placed to [facility] They have tube feed supplies in stock and would require a prescription to dispense. Conference with MARTINE Castro. Piston syringe and graduated cylinder obtained and provided to Christa. Phone call received from Carmen morales [facility]. Ensure Plus is on national backorder so they are unable to provide. They are also unable to provide supplies for his PEG tube since they are not providing nutrition. Updated patient and Christa at the bedside. Christa states since they are retired from [employer], they are able to order this at a discounted hopper. She has already been ordering this as patient was taking this PO prior to PEG tube placement. Christa states she will just continue ordering this through [employer]. CM will continue to explore avenues for tube feed supplies. Department of Surgery Progress Note Patient: Amy Sun Date of : 1950 Age: 72 y.o. Gender: male Primary Care Physician: Gunjan Godoy Date of Admission: 04/07/2023 Reason for Admission: Failure to thrive in adult [R62.7] Date of Consultation: 04/08/2023 HPI: Mild pain associated with the peg site. Otherwise doing ok. 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 Chemo/RT with Cisplatin and RT and Ethyol. RT completed 02/28/09. Past Surgical History: Past Surgical History: Procedure Laterality Date NECK SURGERY 2008 for cancer INGUINAL HERNIA REPAIR 1988 REMOVAL CATARACT (PEM) Bilateral VASECTOMY Medications: Prior to Admission medications Medication Sig Start Date End Date Taking? Authorizing Provider Qqbowai-Xvlcydngrvtlu-Opeawlno (EXCEDRIN PO) Take by mouth. Yes Historical Provider dutasteride (Avodart) 0.5 MG capsule Take 1 capsule by mouth daily. 02/19/23 Yes Gunjan Godoy MD Multiple Vitamins-Minerals (CENTRUM SILVER 50+MEN PO) Take by mouth. Yes Historical Provider pantoprazole Sodium 40 MG Pack Take 1 packet by mouth every morning before breakfast. am Yes Historical Provider pilocarpine 5 MG tablet Take 1 tablet by mouth Three times a day. 07/23/22 07/23/23 Yes Historical Provider predniSONE 10 MG tablet 4 tabs po daily x 3 days, 3 tabs po daily x 3 days, 2 tabs po daily x 3 days, 1 tab po daily x 3 days, then discontinue 03/04/23 Yes Eliseo Brennan, [employer]STRUCTOR-KATINA Rosuvastatin (Crestor) 5 MG tablet Take 1 tablet by mouth daily. Patient taking differently: Take 1 tablet by mouth daily. am 02/19/23 Yes Gunjan Godoy MD sulindac 150 MG tablet Take 1 tablet by mouth 2 times daily. 02/21/23 Yes Gunjan Godoy MD SUMAtriptan 50 MG tablet Take 1 tablet by mouth Every 2 hours as needed. 07/23/22 07/23/23 Yes Historical Provider Testosterone 25 MG/2.5GM (1%) Gel gel Place 2.5 g on skin daily. 02/21/23 08/20/23 Yes Gunjan Godoy MD Thiamine 100 MG tablet Take 1 tablet by mouth daily. Yes Historical Provider traMADol 50 MG tablet Take 1 tablet by mouth 3 times daily as needed. 02/19/23 05/20/23 Yes Gunjan Godoy MD Valsartan 160 MG tablet Take 1 tablet by mouth daily. Patient taking differently: Take 1 tablet by mouth daily. am 02/19/23 Yes Gunjan Godoy MD Pantoprazole (Protonix) [address] tablet DR Take 1 tablet by mouth daily. 04/07/23 Miriam Casey APRN-PROJECT FACILITATOR Allergies: No Known Allergies Social History: Social History Tobacco Use Smoking status: Former Types: Cigarettes Smokeless tobacco: Never Substance Use Topics Alcohol use: No Family History: Family History Problem Relation Age of Onset Heart Disease - Other Father Heart Disease - Other Brother Heart Disease - Other Other Coronary Artery Disease Other No known problems Mother Review of Systems: Consitutional: no weight loss, fever, night sweats ENT: no hearing loss, tinnitus, vertigo, nosebleed, nasal congestion, rhinorrhea, sore throat Respiratory: no cough, pleuritic chest pain, dyspnea, or wheezing Cardiac: no angina, GREEN, orthopnea, PND, palpitations, or claudication GI: no nausea, vomiting, heartburn, diarrhea, constipation, bloating, or abdominal pain PHYSICAL EXAM: Vitals: 04/08/23 0703 BP: 107/72 Pulse: (!) 47 Resp: 16 Temp: 97.6 F (36.4 C) SpO2: 93% BMI: 23 General/Appearance:well-appearing, nontoxic, alert, and no acute distress HEENT: Head: Normal, normocephalic, atraumatic. Neck: no carotid bruit Lung: no chest wall tenderness, bilateral chest rise and fall Breast: Deferred Cardiac: Regular rate and rhythm Abdomen: soft, ND, ATTP, PEG in LUQ an at 2cm at the skin Rectal: Deferred Extremities: moves limbs appropriately, no clubbing, no edema, no cyanosis Neuro: AOx3. Gait normal. Reflexes and motor strength normal and symmetric. Cranial nerves 2-12 and sensation grossly intact. Skin: no lesions, warm and dry, normal turgor, and no bruising Labs: Labs reviewed and relevant labs commented on in assessment below Imaging Studies: No orders to display Problem List: Present on Admission: Essential hypertension Hyperlipidemia Dysphagia S/P percutaneous endoscopic gastrostomy (PEG) tube placement Malignant neoplasm of base of tongue ASSESSMENT / PLAN Amy Sun is a 72 y.o. male presenting with failure to thrive and in need for durable feeding access. Failure to thrive - s/p PEG, at 2cm at the skin - Nutrition consulted and plan for bolus feeds today - Once feeds are set up and he tolerates feeds he can discharge home - Keep binder on for up to 6 weeks I spent greater than 37 minutes in total reviewing the patient's chart, interviewing the patient, and documenting today's visit. Arley Godoy MD Spoke with Dr. Godoy and he will sign order for home tube feed supplies. Initial referral information faxed to [facility] [place]. ENTERAL FEEDING RECOMMENDATION Nutrition Assessment Mr. Amy Sun is a 72 y.o. male admitted to [facility] for: 1. Severe protein-calorie malnutrition Indication for initiating enteral feeding: Dysphagia 2/T tongue cancer Subjective assessments / comments: Patient is s/p PEG placement 04/[address] spoke with patient and spouse in regards to PEG. Patient did have previous PEG which was only used once. Patient reported he still cooks and eats breakfast daily consisting of scrambled eggs and sausage. He also mentioned he consumes Ensure Clear mixed with marcela luh/Pepsi and per spouse tolerates it with no s/s of aspiration. Would suggest patient to continue if tolerating and per SOFTWARE APPLICATION TESTER recs. RD will provide Bolus feeds of Jevity 1.5 of 237 mL 5 x /day that will provide 1775 calories and 75.5 grams protein while in hospital setting that is to start 04/08 in the A.M.. For home use patient may use 5 bottles of Ensure Plus Nutrition Shake that will provide 1750 calories and 80 grams protein still meeting patients needs. If patient continues with weight loss RD recommends to consult RD to have nutrition prescription changed to better meet needs. Anthropometrics: Ht Readings from Last 1 Encounters: 04/07/23 1.854 m (6' 1) Wt Readings from Last 10 Encounters: 04/07/23 78.5 kg (173 lb) 04/02/23 75.3 kg (166 lb) 03/18/23 80.3 kg (177 lb) 03/03/23 78.7 kg (173 lb 6.4 oz) 02/21/23 78.7 kg (173 lb 9.6 oz) 08/13/22 87.6 kg (193 lb 3.2 oz) 02/07/22 91.6 kg (202 lb) 12/04/21 91 kg (200 lb 9.6 oz) 11/08/21 93.3 kg (205 lb 9.6 oz) 07/18/21 93.1 kg (205 lb 3.2 oz) [place] body weight: 79.9 kg (176 lb 2.4 oz) Body mass index is 22.82 kg/m . Classified as: Healthy range Estimated Energy Requirements: Calories: 7809-0549 (20-25 kcals.kg IBW) Protein: 84-97 gm/day (1-1.15 gm/kg IBW) Fluids: 1 mL/kcal of EN - adjust per provider rec to meet fluid needs EN Rec Enteral feeding Jevity 1.5 Goal rate 237 ml 5 x day (suggest 0630, 1030, 1430, 1830 and 2230 Duration BOLUS Total mL fluids from EN 1185 ml Total kcal from EN 1775 Protein from EN 76 Water flush 60 mL Before and After feedings TOTAL KCAL 1775 TOTAL PROTEIN 76 TOTAL mL FLUIDS 1500 mL Nutrition Related Labs: Lab Results Component Value Date GLUCOSE 103 (H) 03/31/2023 GLUCOSE 99 03/04/2023 GLUCOSE 139 (H) 03/03/2023 HGBA1C 5.8 08/09/2022 SODIUM 142 03/31/2023 POTASSIUM 4.0 03/31/2023 MAGNESIUM 1.9 03/04/2023 ALBUMIN 4.0 03/31/2023 PREALBUMIN 13.3 (L) 03/31/2023 CALCIUM 9.7 03/31/2023 TP 7.5 03/31/2023 BUN 28 (H) 03/31/2023 CREATSERUM 0.86 03/31/2023 AST 27 03/31/2023 CRP 152.1 (H) 03/04/2023 HGB 12.9 (L) 03/04/2023 HCT 40.4 (L) 03/04/2023 Nutrition-Related History: No active diet orders No Known Allergies Past Medical History: Diagnosis Date Abnormal glucose Bilateral leg edema BPH without urinary obstruction Chronic kidney disease (CKD), stage I Degenerative joint disease Enthesopathy Essential hypertension, benign Fatigue Former smoker 2 PPD x46 years, quite 09/19/2008 GERD (gastroesophageal reflux disease) Hepatic steatosis Hyperlipidemia Impotence of organic origin Insomnia Obesity Testicular hypofunction Tongue cancer Stage IIB, T2, N1, 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 Chemo/RT with Cisplatin and RT and Ethyol. RT completed 02/28/09. Past Surgical History: Procedure Laterality Date NECK SURGERY 2008 for cancer INGUINAL HERNIA REPAIR 1988 REMOVAL CATARACT (PEM) Bilateral VASECTOMY Nutrition Diagnosis NI-2.1 Inadequate oral intake related to decreased ability to consume sufficient energy as evidenced by patient with reported weight loss of 80-91 lbs over past year, dysphagia/aspiration issues 2/T tongue cancer. Interventions Provide Jevity 1.5 five (5) times / day at 237 ml as BOLUS feedings over 30-60 minutes. Provide 60 mL free water flush Before & After each bolus feeding For Home PEG Feedings: Provide Ensure Plus Nutrition Shake 5 x /day with 60 mL water flush before and after each feeding. Monitoring & Evaluation Enteral Monitoring: Elevate head of bed 30-45 degrees while feeding Check gastric residuals every 4 hours when initiating feeding. May check every 6-8 hours once goal rate is achieved Hold gastric feeds for residuals more than 200 mL. to prevent aspiration. Reassess goal feed rate on an ongoing basis Daily lab draws: Phosphorus Magnesium Sodium Potassium Blood Glucose Every three days draw triglyceride lab Do not put blue dye or coca cola (or similar products) into the feeding tube Patient at high nutritional risk. Reassess 3 x week. Available by consult. Nutrition Goals: Meet estimated nutrition requirements through enteral nutrition support Pt to tolerate enteral nutrition Maintain current weight and prevent weight loss Preserve lean body mass Prevent nutrient deficiencies Maintain electrolyte and fluid balance Monitor patient weight, labs, and tolerance to enteral nutrition Daily weights @ 4 AM I/O documentation of all fluids, EN, and PO intake Matthew Soto RD, LD Registered Dietitian, Licensed Dietitian 04/07/23 documented in this encounter [facility] 04-08-2023 Hospital course Narrative Discharge Summary Name: Amy Sun Age: 72 y.o. Birthday: 1950 Admit Date: 04/07/2023 10:20 AM Discharge Date: 04/08/2023 Brief Summary of Hospital Course: This is a 72-year-old male with a past medical history of esophageal cancer who was admitted to the hospital for evaluation after PEG tube placement. Patient underwent elective PEG tube placement due to failure to thrive and dysphagia with aspiration. Dr. Douglas placed PEG tube 04/07 no adverse events noted. Outpatient PEG tube supplies were secured and patient and family opted to self order ensure plus at discharge. Patient was cleared by General surgery to be discharged at this time. Plan of care was discussed with patient and his they both verbalized understanding and denied any further questions at this time. Patient was discharged in stable condition to the care of his Code Status: Full Code Discharge Diagnosis: Principal Problem: S/P percutaneous endoscopic gastrostomy (PEG) tube placement Active Problems: Hyperlipidemia Essential hypertension Malignant neoplasm of base of tongue Dysphagia Discharge Vital Signs: Blood pressure 107/72, pulse (!) 47, temperature 97.6 F (36.4 C), temperature source Oral, resp. rate 16, height 1.854 m (6' 1), weight 78.5 kg (173 lb), SpO2 93%. PHYSICAL EXAM: General: Patient resting comfortably. Awake. No acute distress. HEENT: Normalcephalic, atraumatic. Pupils equal, round, reactive, to light and accomodation Oral mucosa moist, pink, intact without ulcers or lesions. Neuro: Cranial nerves 2-12 grossly intact upon seated examination. No focal defiects noted. Cardiovascular: Regular rate and rhythm, without murmurs, rubs, or gallops. Respiratory: Anterior and posterior bilateral Upper and Lower Lobes auscultated without wheezes, rales, or rhonchi Gastrointestinal: Soft, rounded, non-tender. Bowel sounds present x4 quadrants. Peg tube in place, dressing clean dry and intact. Musculoskeletal: No clubbing or cyanosis, pulses palpable 2/2 distally. Skin: Warm, Dry, Intact. Physiatric: Patient awake, alert, orientedx3. Mood and affect appropriate. Discharge Labs: Lab Results Component Value Date WBC 12.9 (H) 04/08/2023 HGB 13.5 (L) 04/08/2023 HCT 40.9 (L) 04/08/2023 PLATELET 271 04/08/2023 MCV 88.1 04/08/2023 Lab Results Component Value Date SODIUM 140 04/08/2023 POTASSIUM 4.2 04/08/2023 CHLORIDE 107 04/08/2023 CO2 30 04/08/2023 BUN 18 04/08/2023 CREATSERUM 0.70 04/08/2023 GLUCOSE 117 (H) 04/08/2023 Lab Results Component Value Date ALT 19 03/31/2023 AST 27 03/31/2023 ALKPHOS 108 03/31/2023 BILITOTAL 0.5 03/31/2023 Discharge Medications: Medication List for when you go home CHANGE how you take these medications Morning Afternoon Evening Bedtime As Needed pantoprazole Sodium 40 MG PACK Take 1 packet by mouth every morning before breakfast. am Commonly known as: PROTONIX What changed: Another medication with the same name was removed. Continue taking this medication, and follow the directions you see here. Last time this was given: Ask your nurse or doctor Rosuvastatin 5 MG TABS Take 1 tablet by mouth daily. Commonly known as: Crestor For diagnoses: Hyperlipidemia, unspecified hyperlipidemia type What changed: additional instructions Valsartan 160 MG TABS Take 1 tablet by mouth daily. Commonly known as: DIOVAN For diagnoses: Benign hypertension What changed: additional instructions CONTINUE taking these medications Morning Afternoon Evening Bedtime As Needed CENTRUM SILVER 50+MEN PO Take by mouth. dutasteride 0.5 MG CAPS Take 1 capsule by mouth daily. Commonly known as: Avodart For diagnoses: Benign prostatic hyperplasia with lower urinary tract symptoms, symptom details unspecified EXCEDRIN PO Take by mouth. pilocarpine 5 MG TABS Take 1 tablet by mouth Three times a day. Commonly known as: SALAGEN sulindac 150 MG TABS Take 1 tablet by mouth 2 times daily. Commonly known as: CLINORIL SUMAtriptan 50 MG TABS Take 1 tablet by mouth Every 2 hours as needed. Commonly known as: IMITREX Testosterone 25 MG/2.5GM (1%) GEL gel Place 2.5 g on skin daily. For diagnoses: Testicular hypofunction Thiamine 100 MG TABS Take 1 tablet by mouth daily. Last time this was given: 100 mg on April 08, 2023 9:45 AM traMADol 50 MG TABS Take 1 tablet by mouth 3 times daily as needed. Commonly known as: ULTRAM For diagnoses: Arthritis Last time this was given: 50 mg on April 08, 2023 9:45 AM STOP taking these medications Pantoprazole [address] franco MCKEON Commonly known as: Protonix You also have another medication with the same name that you need to continue taking as instructed. predniSONE 10 MG TABS Commonly known as: DELTASONE Discharge Activity: Resume pre-hospital activities as tolerated Discharge Diet: Resume pre-hospital diet as tolerated Discharge Follow-up: Gunjan Godoy MD [address] [facility] [address] [facility] [id number] Follow up S Kirk Godoy MD [address] [facility] [address] [facility] [id number] Follow up Discharge Disposition: Patient will be discharged in stable condition. Discharge Time: Including assessment, planning, and medication reconciliation was 15 minutes of PROJECT FACILITATOR time. Mara Wilson CNP completing Discharge Summary for Dr. Mayer Please note Portions of this note utilized Hyperpotation software, please excuse any typographical or grammatical errors Associated attestation - Yash Mayer MD - 04/08/2023 8:32 PM EST I have independently interviewed and examined the patient. I have discussed matthew elements of the care plan with the RUNNER OUT and I agree with the findings and care plan as stated above. documented in this encounter [facility] 04-08-2023 Nurse Note Referral received. Chart reviewed. Met with patient along with spouse Christa, who is at the bedside. Kishor and Christa live in a [place]-style house in [place]. Kishor reports being active and independent and has many hobbies including golfing and bowling. He does not utilize any DME. He is current with PCP Dr. Gunjan Godoy. He has prescription drug coverage and medications are affordable. Both are retired from [employer] and report no financial concerns. Patient has been going to outpatient ST at [facility] and his therapist is supposed to be calling to him to schedule his next appointment. Christa states she will be managing the tube feeds at home and feels like she will be comfortable with the process after being educated by nursing staff here. Informed them CM is awaiting return phone call from [facility] [place] to discuss process for getting tube feed and supplies. CM will continue to follow. 04/08/23 0838 Referral Information Arrived From operating room Readmission Information Was patient readmitted within 30 Days? No Information Source Information Source patient ;review of medical record;spouse Information Source Name Rob Sun Contact Information Rip Tailer/SW Added to Care Team Yes This Director Of Front Office is Primary Rip Tailer/SW Yes Rip Tailer Name Ro Hurst RNspiral [facility] Living Environment Lives With spouse Living Arrangements house Provides Primary Care For no one Primary Care Provided By self Support System Immediate family Able to Return to Prior Arrangements yes Functional Status Patient's Functional Status Prior To This Admission? Independent Are There Status Changes This Admission? No Changes Observed Since Admission? No Changes Observed Concerns With Patient Being Able To Care For Themselves At Discharge? Has Assistance (Friend, Family, Skilled Provider) Can Support Person Meet The Care Needs Of The Patient? Yes Employment/Financial Employed? Retired Employment/Financial Concerns no Source Of Income social security;pension/mcfp Financial Concerns none Insurance Medical Insurance Verified Yes Prescription Coverage Yes Initial Discharge Planning Home Care Services (SAP BW ARCHITECT) No Home Therapies (SAP BW ARCHITECT) None DME (SAP BW ARCHITECT) None Medical Supplies (SAP BW ARCHITECT) None Patient Goal for Discharge Get better Anticipated discharge disposition Home Anticipated Services at Discharge Outpatient follow up;Speech Therapy Anticipated Changes Related to Illness none Current Discharge Risk >65 years of age Transportation Available car;family or friend will provide Home Care Services (SAP BW ARCHITECT) Additional Home Care Services (SAP BW ARCHITECT) no Assessment/Concerns to be Addressed Concerns To Be Addressed denies needs/concerns at this time [facility] 04-07-2023 Nurse Note On admission to [facility] MED SURG, from OR a dual RN initial assessment of skin condition was performed by Mara Woodson RN and DANIEL Lobo. Skin Assessment: Skin not within defined limits. PEG tube placement to abdomen Amador Score: 17 LDA Added:No Mara Woodson RN [facility] 04-07-2023 Consult note Formatting of th is note is different from the original. Consult Report Reason for Consultation: Post-Op Medical Management s/ PEG Tube Requesting Physician: Dr Godoy Consulting Physician: Dr Mayer History of Present Illness: The patient is a 72-year-old male presented to the hospital for planned PEG tube placement. The patient unfortunately has a history of tongue cancer followed in the outpatient setting by Dr. Brandon. The patient was found to have significant dysphagia, failure to thrive secondary to poor oral intake. Peg tube was discussed and the patient was agreeable to proceed for nutritional support. He therefore presented to the hospital this morning where he underwent a successful PEG tube placement. The procedure itself was unremarkable. He was recovered adequately to postoperative. And returned to the medical floor for overnight observation. Prior to his presentation the patient reported that he was in his typical state of health. He does admit to increased fatigue and weakness over the past several months secondary to no appetite secondary to difficulty chewing and swallowing. Denies any fevers or chills. He is had no chest pain. No shortness of breath. No cough. No headaches or blurred vision. No abdominal pain. No nausea, vomiting, diarrhea. No unusual muscle or joint pains. No skin rashes or lesions. He is currently resting in the bed in no acute distress at this time. 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 Chemo/RT with Cisplatin and RT and Ethyol. RT completed 02/28/09. Past Surgical History: Procedure Laterality Date NECK SURGERY 2008 for cancer INGUINAL HERNIA REPAIR 1987 REMOVAL CATARACT (PEM) Bilateral VASECTOMY Social History Tobacco Use Smoking status: Former Types: Cigarettes Smokeless tobacco: Never Substance Use Topics Alcohol use: No Family History Problem Relation Age of Onset Heart Disease - Other Father Heart Disease - Other Brother Heart Disease - Other Other Coronary Artery Disease Other No known problems Mother Medications Prior to Admission Medication Sig Dispense Refill Last Dose Yinlhlw-Pmzxeuzcpbxfg-Mzkgstmp (EXCEDRIN PO) Take by mouth. Past Week dutasteride (Avodart) 0.5 MG capsule Take 1 capsule by mouth daily. 14 capsule 0 Past Week Multiple Vitamins-Minerals (CENTRUM SILVER 50+MEN PO) Take by mouth. Past Week pantoprazole Sodium 40 MG Pack Take 1 packet by mouth every morning before breakfast. am Past Week pilocarpine 5 MG tablet Take 1 tablet by mouth Three times a day. Past Week predniSONE 10 MG tablet 4 tabs po daily x 3 days, 3 tabs po daily x 3 days, 2 tabs po daily x 3 days, 1 tab po daily x 3 days, then discontinue 30 tablet 0 Past Week Rosuvastatin (Crestor) 5 MG tablet Take 1 tablet by mouth daily. (Patient taking differently: Take 1 tablet by mouth daily. am) 14 tablet 0 Past Week sulindac 150 MG tablet Take 1 tablet by mouth 2 times daily. 180 tablet 1 Past Week SUMAtriptan 50 MG tablet Take 1 tablet by mouth Every 2 hours as needed. Past Week Testosterone 25 MG/2.5GM (1%) Gel gel Place 2.5 g on skin daily. 225 g 1 Past Week Thiamine 100 MG tablet Take 1 tablet by mouth daily. Past Week traMADol 50 MG tablet Take 1 tablet by mouth 3 times daily as needed. 21 tablet 0 Past Week Valsartan 160 MG tablet Take 1 tablet by mouth daily. (Patient taking differently: Take 1 tablet by mouth daily. am) 14 tablet 0 Past Week Pantoprazole (Protonix) [address] tablet DR Take 1 tablet by mouth daily. 90 tablet 0 No Known Allergies Review of Systems: Ten systems reviewed and found to be negative unless otherwise stated in the history and present illness. PHYSICAL EXAM: Patient Vitals for the past 8 hrs: BP Temp Temp src Pulse Resp SpO2 Height Weight 04/07/23 1045 129/82 97.8 F (36.6 C) Temporal 51 18 96 % 1.854 m (6' 1) 78.5 kg (173 lb) 04/07/23 1010 125/84 -- -- 50 17 95 % -- -- 04/07/23 1000 117/72 -- -- 57 17 95 % -- -- 04/07/23 0950 131/83 97.9 F (36.6 C) Temporal 52 17 96 % -- -- 04/07/23 0613 141/82 97.1 F (36.2 C) Temporal 65 16 92 % 1.829 m (6') 75.3 kg (166 lb) General: Patient resting comfortably. Awake. No acute distress. HEENT: Normalcephalic, atraumatic. Pupils equal, round, reactive, to light and accomodation B/L. Ears normal, no erythema or drainage. Bilateral nares patent without obvious drainage. Oral mucosa moist, pink, intact without ulcers or lesions. Neck: No JVD, no thyromegaly, no anterior or posterior cervical lymphadenopathy. Cardiovascular: Regular rate and rhythm, without murmurs, rubs, or gallops. Respiratory: Bilateral Upper and Lower Lobes anterior and posteriorly without wheezes, rales, or rhonchi Gastrointestinal: Soft, rounded, non-tender. Bowel sounds present x4 quadrants. No rebound. No organomegaly or masses noted upon deep palpation. PEG tube intact. Dressing clean/dry/intact Musculoskeletal: No edema, clubbing or cyanosis, pulses palpable 2+ distally. Muscle strength and tone symmetrical. Skin: Warm, Dry, Intact. No obvious rashes or lesions noted. Neuro: Cranial nerves 2-12 grossly intact upon seated examination. No focal defiects noted. Physiatric: Patient awake, alert, orientedx3. Mood and affect appropriate. Diagnostics: Admission on 04/07/2023 Component Date Value BSA 04/07/2023 1.97 Impression and Plan: Principal Problem: S/P percutaneous endoscopic gastrostomy (PEG) tube placement Active Problems: Hyperlipidemia Essential hypertension Malignant neoplasm of base of tongue Dysphagia Dysphagia Secondary to tongue cancer S/p PEG placement - POD#1 C/s Dietary for TF Eval Per Surgery - Prefer Bolus feedings starting in AM S/P percutaneous endoscopic gastrostomy (PEG) tube placement POD#1 - Per Dr Godoy Routine post-op care per surgery recommendations Essential hypertension Continue home medications and monitor VS per protocol. Follow-up with PCP after discharge for further evaluation and management. Hyperlipidemia Resume home medications Follow-up with PCP after discharge Malignant neoplasm of base of tongue Follows with Dr Brandon Follow-up outpatient as previously arranged Ralf Kent CNP completing consultation report for Dr. Mayer Please note Portions of this note utilized Hyperpotation software, please excuse any typographical or grammatical errors Associated attestation - Yash Mayer MD - 04/08/2023 8:32 PM EST I have independently interviewed and examined the patient. I have discussed matthew elements of the care plan with the RUNNER OUT and I agree with the findings and care plan as stated above. Time spent performing exam and reviewing diagnostics results, images and labs and discussing care plan with nurse practitioner and consulting physicians was 76 minutes Pt seen and examined myself on apr 08 2023 Seen by elastic yarn twister on apr 07 2023 No complaints Aox3 PERRLA EOMI ENT clear Heart rrr Lungs clear Abd soft bs+ No jaundice No edemas Skin intact No deformities musculoskeletal No neuro deficit Cont pt/ot D/w dr godoy Plan for peg use per surgery Cont ivf See [facility] 04-07-2023 Evaluation + Plan note Associated Problem(s): S/P percutaneous endoscopic gastrostomy (PEG) tube placement POD#1 - Per Dr Godoy Routine post-op care per surgery recommendations [facility] 04-07-2023 Evaluation + Plan note Associated Problem(s): Malignant neoplasm of base of tongue Follows with Dr Brandon Follow-up outpatient as previously arranged [facility] 04-07-2023 Consult note Formatting of th is note is different from the original. Consult Report Reason for Consultation: Post-Op Medical Management s/ PEG Tube Requesting Physician: Dr Godoy Consulting Physician: Dr Mayer History of Present Illness: The patient is a 72-year-old male presented to the hospital for planned PEG tube placement. The patient unfortunately has a history of tongue cancer followed in the outpatient setting by Dr. Brandon. The patient was found to have significant dysphagia, failure to thrive secondary to poor oral intake. Peg tube was discussed and the patient was agreeable to proceed for nutritional support. He therefore presented to the hospital this morning where he underwent a successful PEG tube placement. The procedure itself was unremarkable. He was recovered adequately to postoperative. And returned to the medical floor for overnight observation. Prior to his presentation the patient reported that he was in his typical state of health. He does admit to increased fatigue and weakness over the past several months secondary to no appetite secondary to difficulty chewing and swallowing. Denies any fevers or chills. He is had no chest pain. No shortness of breath. No cough. No headaches or blurred vision. No abdominal pain. No nausea, vomiting, diarrhea. No unusual muscle or joint pains. No skin rashes or lesions. He is currently resting in the bed in no acute distress at this time. 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 Chemo/RT with Cisplatin and RT and Ethyol. RT completed 02/28/09. Past Surgical History: Procedure Laterality Date NECK SURGERY 2008 for cancer INGUINAL HERNIA REPAIR 1987 REMOVAL CATARACT (PEM) Bilateral VASECTOMY Social History Tobacco Use Smoking status: Former Types: Cigarettes Smokeless tobacco: Never Substance Use Topics Alcohol use: No Family History Problem Relation Age of Onset Heart Disease - Other Father Heart Disease - Other Brother Heart Disease - Other Other Coronary Artery Disease Other No known problems Mother Medications Prior to Admission Medication Sig Dispense Refill Last Dose Mfjawga-Wkdfawxcuwkgc-Wzyntwcn (EXCEDRIN PO) Take by mouth. Past Week dutasteride (Avodart) 0.5 MG capsule Take 1 capsule by mouth daily. 14 capsule 0 Past Week Multiple Vitamins-Minerals (CENTRUM SILVER 50+MEN PO) Take by mouth. Past Week pantoprazole Sodium 40 MG Pack Take 1 packet by mouth every morning before breakfast. am Past Week pilocarpine 5 MG tablet Take 1 tablet by mouth Three times a day. Past Week predniSONE 10 MG tablet 4 tabs po daily x 3 days, 3 tabs po daily x 3 days, 2 tabs po daily x 3 days, 1 tab po daily x 3 days, then discontinue 30 tablet 0 Past Week Rosuvastatin (Crestor) 5 MG tablet Take 1 tablet by mouth daily. (Patient taking differently: Take 1 tablet by mouth daily. am) 14 tablet 0 Past Week sulindac 150 MG tablet Take 1 tablet by mouth 2 times daily. 180 tablet 1 Past Week SUMAtriptan 50 MG tablet Take 1 tablet by mouth Every 2 hours as needed. Past Week Testosterone 25 MG/2.5GM (1%) Gel gel Place 2.5 g on skin daily. 225 g 1 Past Week Thiamine 100 MG tablet Take 1 tablet by mouth daily. Past Week traMADol 50 MG tablet Take 1 tablet by mouth 3 times daily as needed. 21 tablet 0 Past Week Valsartan 160 MG tablet Take 1 tablet by mouth daily. (Patient taking differently: Take 1 tablet by mouth daily. am) 14 tablet 0 Past Week Pantoprazole (Protonix) [address] tablet DR Take 1 tablet by mouth daily. 90 tablet 0 No Known Allergies Review of Systems: Ten systems reviewed and found to be negative unless otherwise stated in the history and present illness. PHYSICAL EXAM: Patient Vitals for the past 8 hrs: BP Temp Temp src Pulse Resp SpO2 Height Weight 04/07/23 1045 129/82 97.8 F (36.6 C) Temporal 51 18 96 % 1.854 m (6' 1) 78.5 kg (173 lb) 04/07/23 1010 125/84 -- -- 50 17 95 % -- -- 04/07/23 1000 117/72 -- -- 57 17 95 % -- -- 04/07/23 0950 131/83 97.9 F (36.6 C) Temporal 52 17 96 % -- -- 04/07/23 0613 141/82 97.1 F (36.2 C) Temporal 65 16 92 % 1.829 m (6') 75.3 kg (166 lb) General: Patient resting comfortably. Awake. No acute distress. HEENT: Normalcephalic, atraumatic. Pupils equal, round, reactive, to light and accomodation B/L. Ears normal, no erythema or drainage. Bilateral nares patent without obvious drainage. Oral mucosa moist, pink, intact without ulcers or lesions. Neck: No JVD, no thyromegaly, no anterior or posterior cervical lymphadenopathy. Cardiovascular: Regular rate and rhythm, without murmurs, rubs, or gallops. Respiratory: Bilateral Upper and Lower Lobes anterior and posteriorly without wheezes, rales, or rhonchi Gastrointestinal: Soft, rounded, non-tender. Bowel sounds present x4 quadrants. No rebound. No organomegaly or masses noted upon deep palpation. PEG tube intact. Dressing clean/dry/intact Musculoskeletal: No edema, clubbing or cyanosis, pulses palpable 2+ distally. Muscle strength and tone symmetrical. Skin: Warm, Dry, Intact. No obvious rashes or lesions noted. Neuro: Cranial nerves 2-12 grossly intact upon seated examination. No focal defiects noted. Physiatric: Patient awake, alert, orientedx3. Mood and affect appropriate. Diagnostics: Admission on 04/07/2023 Component Date Value BSA 04/07/2023 1.97 Impression and Plan: Principal Problem: S/P percutaneous endoscopic gastrostomy (PEG) tube placement Active Problems: Hyperlipidemia Essential hypertension Malignant neoplasm of base of tongue Dysphagia Dysphagia Secondary to tongue cancer S/p PEG placement - POD#1 C/s Dietary for TF Eval Per Surgery - Prefer Bolus feedings starting in AM S/P percutaneous endoscopic gastrostomy (PEG) tube placement POD#1 - Per Dr Godoy Routine post-op care per surgery recommendations Essential hypertension Continue home medications and monitor VS per protocol. Follow-up with PCP after discharge for further evaluation and management. Hyperlipidemia Resume home medications Follow-up with PCP after discharge Malignant neoplasm of base of tongue Follows with Dr Brandon Follow-up outpatient as previously arranged Ralf Kent CNP completing consultation report for Dr. Mayer Please note Portions of this note utilized [employer] dictation software, please excuse any typographical or grammatical errors Associated attestation - Yash Mayer MD - 04/08/2023 8:32 PM EST I have independently interviewed and examined the patient. I have discussed matthew elements of the care plan with the RUNNER OUT and I agree with the findings and care plan as stated above. Time spent performing exam and reviewing diagnostics results, images and labs and discussing care plan with nurse practitioner and consulting physicians was 76 minutes Pt seen and examined myself on apr 08 2023 Seen by elastic yarn twister on apr 07 2023 No complaints Aox3 PERRLA EOMI ENT clear Heart rrr Lungs clear Abd soft bs+ No jaundice No edemas Skin intact No deformities musculoskeletal No neuro deficit Cont pt/ot D/w dr godoy Plan for peg use per surgery Cont ivf See orders documented in this encounter [facility] 04-07-2023 Evaluation + Plan note Associated Problem(s): Hyperlipidemia Resume home medications Follow-up with PCP after discharge [facility] 04-07-2023 Evaluation + Plan note Associated Problem(s): Essential hypertension Continue home medications and monitor VS per protocol. Follow-up with PCP after discharge for further evaluation and management. [facility] 04-07-2023 Evaluation + Plan note Associated Problem(s): Dysphagia Secondary to tongue cancer S/p PEG placement - POD#1 C/s Dietary for TF Eval Per Surgery - Prefer Bolus feedings starting in AM [facility] 04-07-2023 History and physical note GENERAL SURGERY NEW PATIENT CONSULTATION HISTORY AND PHYSICAL Date: 03/18/2023 Time: 3:02 PM Name: Amy Sun PCP: Gunjan Godoy Reason for visit: P.o. intolerance HPI: Mr. Sun is a 72 y.o. male with a history of squamous cell carcinoma of the tongue diagnosed back in 2008. He last underwent chemotherapy and radiation approximately 13 years ago. Since then he has been followed by [facility]. Over the last approximate year he is lost 80 lb. He has had a lack of appetite and has had issues with aspiration. He is trouble tolerating both liquids and solids. He was recently admitted to the hospital for aspiration pneumonia. He had a modified barium swallow at that time which showed difficulty swallowing both thin and thickened liquids. He was referred to my clinic for PEG tube evaluation. During his previous surgery for the squamous cell carcinoma of the tongue he did have a PEG in place. This was used for only 1 protein shake during his entire postoperative course and was later removed. In the 1 week after he made the appointment he and his both report that he has tolerated a diet better, he feels better, is more mobile, and has more energy. 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 Chemo/RT with Cisplatin and RT and Ethyol. RT completed 02/28/09. PAST SURGICAL HISTORY: Past Surgical History Past Surgical History: Procedure Laterality Date NECK SURGERY 2008 for cancer INGUINAL HERNIA REPAIR 1988 VASECTOMY FAMILY HISTORY: Family History Family History Problem Relation Age of Onset Heart Disease - Other Father Heart Disease - Other Brother Heart Disease - Other Other Coronary Artery Disease Other No known problems Mother SOCIAL HISTORY: Social History Tobacco Use Smoking status: Former Years: 46 Types: Cigarettes Smokeless tobacco: Never Substance Use Topics Alcohol use: No Drug use: No Denies significant EtOH/drug use. Smoking: former MEDICATIONS: Prior to Admission Medications: Current Outpatient Medications Medication Sig Last Dose Start Date End Date Authorizing Provider dutasteride (Avodart) 0.5 MG capsule 0.5 mg, Oral, DAILY Taking 02/19/23 Gunjan Godoy MD esomeprazole [address] capsule 40 mg, Oral Taking Historical Provider famotidine 40 MG tablet 40 mg, Oral, DAILY Taking Historical Provider Fexofenadine 180 MG tablet 180 mg, Oral, DAILY Taking Historical Provider Multiple Vitamins-Minerals (CENTRUM SILVER 50+MEN PO) Oral Taking Historical Provider omeprazole [address] capsule 20 mg, Oral, DAILY Taking Historical Provider pilocarpine 5 MG tablet 5 mg, Oral, 3 TIMES DAILY Taking 07/23/22 07/23/23 Historical Provider Rosuvastatin (Crestor) 5 MG tablet 5 mg, Oral, DAILY Taking 02/19/23 Gunjan Godoy MD sulindac 150 MG tablet 150 mg, Oral, 2 TIMES DAILY Taking 02/21/23 Gunjan Godoy MD SUMAtriptan 50 MG tablet 50 mg, Oral, EVERY 2 HOURS PRN Taking 07/23/22 07/23/23 Historical Provider Testosterone 25 MG/2.5GM (1%) Gel gel 2.5 g, Transdermal, DAILY Taking 02/21/23 08/20/23 Gunjan Godoy MD traMADol 50 MG tablet 50 mg, Oral, 3 TIMES DAILY NEEDED Taking 02/19/23 05/20/23 Gunjan Godoy MD Valsartan 160 MG tablet 160 mg, Oral, DAILY Taking 02/19/23 Gunjan Godoy MD predniSONE 10 MG tablet 4 tabs po daily x 3 days, 3 tabs po daily x 3 days, 2 tabs po daily x 3 days, 1 tab po daily x 3 days, then discontinue Patient not taking: Reported on 03/18/2023 Not Taking 03/04/23 Eliseo Brennan APRN-KATINA ALLERGIES: No Known Allergies REVIEW OF SYSTEMS: GENERAL: Negative for malaise, significant weight loss and fever HEAD: Negative for headache, swelling. NECK: Negative for goiter, pain and significant neck swelling RESPIRATORY: Negative for cough, wheezing or shortness of breath. CARDIOVASCULAR: Negative for chest pain, leg swelling or palpitations. GI: Negative for abdominal discomfort, blood in stools or black stools or change in bowel habits : No history of dysuria, frequency or incontinence MUSCULOSKELETAL: Negative for joint pain or swelling, back pain or muscle pain. SKIN: Negative for lesions, rash, and itching. PSYCH: Negative for sleep disturbance, mood disorder and recent psychosocial stressors. ENDOCRINE: Negative for cold or heat intolerance, polyuria, polydipsia and goiter. PHYSICAL EXAM: Visit Vitals BP 112/64 (BP Location: Left arm, BP Position: Sitting) Resp 16 Ht 1.829 m (6') Wt 80.3 kg (177 lb) BMI 24.01 kg/m Body mass index is 24.01 kg/m . General appearance: NAD Neuro: AOx3 Head: EOMI; no swelling or lesions of scalp or face ENT: no lumps or lymphadenopathy, thyroid normal to palpation; oropharynx clear, no swelling or erythema Skin: warm, no erythema or rashes Lungs: clear to percussion and auscultation Heart: regular rhythm and S1, S2 normal Abdomen: soft, ND, previous incision in the LUQ from prior PEG Extremities: Normal exam of the extremities. No swelling or pain. Psych: no hurried speech, no flight of ideas, normal affect Assessment: Amy Sun is a 72 y.o. male who had a diagnosis of p.o. intolerance concern for protein calorie malnutrition, recurrent aspiration pneumonia - Labs were independently reviewed and interpreted by me. Any abnormal/normal results are indicated below along with any plan of action from: March 04, 2023 metabolic panel does show a decreased albumin 23.3. His prior albumins were greater than 4 - Imaging was independently reviewed and interpreted by me. Any abnormal/normal results are indicated below along with any plan of action from: March 03, 2023 CT PE reviewed it does show some upper abdominal windows. In this there was a clear window between the stomach and abdominal wall. The colon does not appear to be near this. Plan: - the patient has improved significantly in terms of his p.o. intake and how he feels. He wishes to forego a PEG at this time. He wants to continue to try to eat and drink on his own. He does have a history of aspiration pneumonia and documented issues tolerating both thin and thickened liquids. Feel he will continue to struggle with this but the patient is adamant about postponing. He does have speech therapy follow up later this week. If he continues to work with speech therapy in his able to tolerate his own secretions as well as food and I believe it is reasonable to continue to watch and wait on the PEG. If he does demonstrate further issues of not being able to tolerate anything by mouth or he does not make significant improvements with speech therapy I believe it is reasonable to offer a PEG. The patient is in agreement of the above plan as he really wants to try to do this on his own. Prior to see me back in the clinic I have ordered an albumin, pre-albumin and transferrin level. He was to obtain these labs prior to seeing me. No changes from the above H and P. They wish to proceed. All questions answered. Plan for EGD today, will need admitted following for tube feed Kirk Godoy MD [facility] 04-07-2023 History and physical note GENERAL SURGERY NEW PATIENT CONSULTATION HISTORY AND PHYSICAL Date: 03/18/2023 Time: 3:02 PM Name: Amy Sun PCP: Gunjan Godoy Reason for visit: P.o. intolerance HPI: Mr. Sun is a 72 y.o. male with a history of squamous cell carcinoma of the tongue diagnosed back in 2008. He last underwent chemotherapy and radiation approximately 13 years ago. Since then he has been followed by [facility]. Over the last approximate year he is lost 80 lb. He has had a lack of appetite and has had issues with aspiration. He is trouble tolerating both liquids and solids. He was recently admitted to the hospital for aspiration pneumonia. He had a modified barium swallow at that time which showed difficulty swallowing both thin and thickened liquids. He was referred to my clinic for PEG tube evaluation. During his previous surgery for the squamous cell carcinoma of the tongue he did have a PEG in place. This was used for only 1 protein shake during his entire postoperative course and was later removed. In the 1 week after he made the appointment he and his both report that he has tolerated a diet better, he feels better, is more mobile, and has more energy. 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 Chemo/RT with Cisplatin and RT and Ethyol. RT completed 02/28/09. PAST SURGICAL HISTORY: Past Surgical History Past Surgical History: Procedure Laterality Date NECK SURGERY 2008 for cancer INGUINAL HERNIA REPAIR 1988 VASECTOMY FAMILY HISTORY: Family History Family History Problem Relation Age of Onset Heart Disease - Other Father Heart Disease - Other Brother Heart Disease - Other Other Coronary Artery Disease Other No known problems Mother SOCIAL HISTORY: Social History Tobacco Use Smoking status: Former Years: 46 Types: Cigarettes Smokeless tobacco: Never Substance Use Topics Alcohol use: No Drug use: No Denies significant EtOH/drug use. Smoking: former MEDICATIONS: Prior to Admission Medications: Current Outpatient Medications Medication Sig Last Dose Start Date End Date Authorizing Provider dutasteride (Avodart) 0.5 MG capsule 0.5 mg, Oral, DAILY Taking 02/19/23 Gunjan Godoy MD esomeprazole [address] capsule 40 mg, Oral Taking Historical Provider famotidine 40 MG tablet 40 mg, Oral, DAILY Taking Historical Provider Fexofenadine 180 MG tablet 180 mg, Oral, DAILY Taking Historical Provider Multiple Vitamins-Minerals (CENTRUM SILVER 50+MEN PO) Oral Taking Historical Provider omeprazole [address] capsule 20 mg, Oral, DAILY Taking Historical Provider pilocarpine 5 MG tablet 5 mg, Oral, 3 TIMES DAILY Taking 07/23/22 07/23/23 Historical Provider Rosuvastatin (Crestor) 5 MG tablet 5 mg, Oral, DAILY Taking 02/19/23 Gunjan Godoy MD sulindac 150 MG tablet 150 mg, Oral, 2 TIMES DAILY Taking 02/21/23 Gunjan Godoy MD SUMAtriptan 50 MG tablet 50 mg, Oral, EVERY 2 HOURS PRN Taking 07/23/22 07/23/23 Historical Provider Testosterone 25 MG/2.5GM (1%) Gel gel 2.5 g, Transdermal, DAILY Taking 02/21/23 08/20/23 Gunjan Godoy MD traMADol 50 MG tablet 50 mg, Oral, 3 TIMES DAILY NEEDED Taking 02/19/23 05/20/23 Gunjan Godoy MD Valsartan 160 MG tablet 160 mg, Oral, DAILY Taking 02/19/23 Gunjan Godoy MD predniSONE 10 MG tablet 4 tabs po daily x 3 days, 3 tabs po daily x 3 days, 2 tabs po daily x 3 days, 1 tab po daily x 3 days, then discontinue Patient not taking: Reported on 03/18/2023 Not Taking 03/04/23 Eliseo Brennan APRN-PROJECT FACILITATOR ALLERGIES: No Known Allergies REVIEW OF SYSTEMS: GENERAL: Negative for malaise, significant weight loss and fever HEAD: Negative for headache, swelling. NECK: Negative for goiter, pain and significant neck swelling RESPIRATORY: Negative for cough, wheezing or shortness of breath. CARDIOVASCULAR: Negative for chest pain, leg swelling or palpitations. GI: Negative for abdominal discomfort, blood in stools or black stools or change in bowel habits : No history of dysuria, frequency or incontinence MUSCULOSKELETAL: Negative for joint pain or swelling, back pain or muscle pain. SKIN: Negative for lesions, rash, and itching. PSYCH: Negative for sleep disturbance, mood disorder and recent psychosocial stressors. ENDOCRINE: Negative for cold or heat intolerance, polyuria, polydipsia and goiter. PHYSICAL EXAM: Visit Vitals BP 112/64 (BP Location: Left arm, BP Position: Sitting) Resp 16 Ht 1.829 m (6') Wt 80.3 kg (177 lb) BMI 24.01 kg/m Body mass index is 24.01 kg/m . General appearance: NAD Neuro: AOx3 Head: EOMI; no swelling or lesions of scalp or face ENT: no lumps or lymphadenopathy, thyroid normal to palpation; oropharynx clear, no swelling or erythema Skin: warm, no erythema or rashes Lungs: clear to percussion and auscultation Heart: regular rhythm and S1, S2 normal Abdomen: soft, ND, previous incision in the LUQ from prior PEG Extremities: Normal exam of the extremities. No swelling or pain. Psych: no hurried speech, no flight of ideas, normal affect Assessment: Amy Sun is a 72 y.o. male who had a diagnosis of p.o. intolerance concern for protein calorie malnutrition, recurrent aspiration pneumonia - Labs were independently reviewed and interpreted by me. Any abnormal/normal results are indicated below along with any plan of action from: March 04, 2023 metabolic panel does show a decreased albumin 23.3. His prior albumins were greater than 4 - Imaging was independently reviewed and interpreted by me. Any abnormal/normal results are indicated below along with any plan of action from: March 03, 2023 CT PE reviewed it does show some upper abdominal windows. In this there was a clear window between the stomach and abdominal wall. The colon does not appear to be near this. Plan: - the patient has improved significantly in terms of his p.o. intake and how he feels. He wishes to forego a PEG at this time. He wants to continue to try to eat and drink on his own. He does have a history of aspiration pneumonia and documented issues tolerating both thin and thickened liquids. Feel he will continue to struggle with this but the patient is adamant about postponing. He does have speech therapy follow up later this week. If he continues to work with speech therapy in his able to tolerate his own secretions as well as food and I believe it is reasonable to continue to watch and wait on the PEG. If he does demonstrate further issues of not being able to tolerate anything by mouth or he does not make significant improvements with speech therapy I believe it is reasonable to offer a PEG. The patient is in agreement of the above plan as he really wants to try to do this on his own. Prior to see me back in the clinic I have ordered an albumin, pre-albumin and transferrin level. He was to obtain these labs prior to seeing me. No changes from the above H and P. They wish to proceed. All questions answered. Plan for EGD today, will need admitted following for tube feed Kirk Godoy MD documented in this encounter [facility] 03-21-2023 History of Present illness Narrative HISTORY OF PRESENT ILLNESS: Mr. 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 Patient that time was treated with chemoradiation therapy. He completed radiation therapy in February 2009. He was treated on the care Dr. Lennon. He was last seen by him on September 2017. He presents for his yearly follow-up. CURRENT STATUS: Since her last visit, he reports that he was seen by Dr. 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 Patient has been seen by Dr. Douglas and surgery. Patient was found not to be quite ready for PEG. Patient and his are comfortable with this decision. In the interim his appetite is gradually substantially improved. Patient reports is appetite has improved. He reports feeling well. He was however hospitalized March 03 and discharged on the with a working diagnosis of pneumonia. He is given prescriptions for Levaquin and prednisone. This has helped. ECOG PERFORMANCE STATUS: 0- Fully active, able to carry on all pre-disease performance w/o restriction. Social History Tobacco Use Smoking status: Former Packs/day: 2.00 Years: 46.00 Additional pack years: 0.00 Total pack years: 92.00 Types: Cigarettes Quit date: 09/19/2008 Years since quittin.5 Smokeless tobacco: Never Tobacco comments: Quit Vaping Use Vaping Use: Never used Substance Use Topics Alcohol use: No Drug use: No FAMILY HISTORY Problem Relation Age of Onset Cataract Mother other (Dementia) Mother Coronary Artery Disease Father Heart Father Cataract Father Glaucoma Father Detached Retina No Family History Macular Degen No Family History Blindness No Family History Amblyopia No Family History Strabismus No Family History PAST MEDICAL HISTORY Diagnosis Date Epiretinal membrane (ERM) of left eye Erythrocytosis 09/15/2014 Hyperlipemia 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) 12/02/2008 Nausea with vomiting PCO (posterior capsular opacification), left Pseudophakia, both eyes Secondary and unspecified malignant neoplasm of lymph nodes of head, face, and neck 12/02/2008 Vitreous floaters PHYSICAL EXAM: BP 127/74 Pulse 67 Temp (Src) 98.7 (Oral) Resp 16 Ht 6' 2.016 (1.88m) Wt 174 lb 9.7 oz (79.2kg) SpO2 94% BMI 22.41 kg/(m^2). CONSTITUTIONAL: Awake, alert, oriented. HEAD (Incl. face): Normocephalic; Atraumatic. EYES: Pupils are reactive. No scleral icterus. HEENT: No oral exudates. NECK: No thyromegaly. No JVD. Evidence of neck surgery. HEMATOLOGY/LYMPHATIC: No petechiae or purpura. No tender or palpable lymph nodes in the cervical, supraclavicular, axillary or inguinal areas. RESPIRATORY: Lungs are clear to auscultation. CARDIOVASCULAR: Regular rate and rhythm. 2 + radial pulse. ABDOMEN: Non-tender, soft, positive bowel sounds. BACK/SPINE: No kyphosis or scoliosis. Non tender to palpation. MUSCULOSKELETAL: No tenderness or swelling, normal range of motion without obvious weakness. EXTREMITIES: No cyanosis, clubbing INTEGUMENTARY: No rashes or masses. NEURO: No sensory or motor deficits, normal cerebellar function, normal gait, cranial nerves intact. PSYCHIATRIC: Pleasant affect. No signs of agitation. LABS: Latest Reference Range & Units 02/14/23 14:46 Sodium 136 - 144 mmol/L 139 Potassium 3.7 - 5.1 mmol/L 4.9 Chloride 97 - 105 mmol/L 100 CO2 22 - 30 mmol/L 31 (H) BUN 9 - 24 mg/dL 26 (H) Creatinine 0.73 - 1.22 mg/dL 0.94 Glucose 74 - 99 mg/dL 108 (H) Protein, Total 6.3 - 8.0 g/dL 7.6 Calcium 8.5 - 10.2 mg/dL 9.8 Albumin 3.9 - 4.9 g/dL 4.3 Bilirubin, Total 0.2 - 1.3 mg/dL 0.7 Alkaline Phosphatase 38 - 113 U/L 123 (H) ALT 10 - 54 U/L 13 AST 14 - 40 U/L 18 Anion Gap 9 - 18 mmol/L 8 (L) eGFR >=60 mL/min/1.73m 86 Free T4 0.9 - 1.7 ng/dL 1.3 TSH 0.270 - 4.200 mIU/L 2.330 WBC 3.70 - 11.00 k/uL 15.08 (H) RBC 4.20 - 6.00 m/uL 5.97 Hemoglobin 13.0 - 17.0 g/dL 17.1 (H) Hematocrit 39.0 - 51.0 % 52.0 (H) Platelet Count 150 - 400 k/uL 351 MCV 80.0 - 100.0 fL 87.1 MCH 26.0 - 34.0 pg 28.6 MCHC 30.5 - 36.0 g/dL 32.9 MPV 9.0 - 12.7 fL 9.9 RDW-CV 11.5 - 15.0 % 14.6 DTYPE Auto Neut% % 88.3 Abs Neut (ANC) 1.45 - 7.50 k/uL 13.29 (H) Lymph% % 5.2 Abs Lymph 1.00 - 4.00 k/uL 0.79 (L) Gaston% % 4.8 Abs Gaston <0.87 k/uL 0.73 Eosin% % 0.7 Abs Eosin <0.46 k/uL 0.11 Baso% % 0.5 Abs Baso <0.11 k/uL 0.08 Immature Gran % % 0.5 IMMATURE GRANS (ABS) <0.10 k/uL 0.08 NRBC /100 WBC 0.0 Absolute nRBC <0.01 k/uL <0.01 (H): Data is abnormally high (L): Data is abnormally low RADIOLOGY: MRI ABDOMEN WITH AND WITHOUT CONTRAST -Exam End: 03/12/23 9:59 AM FINDINGS: There are multiple bilateral renal cysts. Multiple lesions are too small to definitively characterize, but there are no overtly suspicious renal lesions. The largest in the lateral left kidney appears simple and measures 2.7 x 2.7 cm on series 8 image 28. Several lesions demonstrate precontrast T1 hyperintensity without definite suspicious nodular enhancement on postcontrast images. Some lesions demonstrate probable thin internal septations without overt focal thickening. The liver demonstrates no definite evidence of significant steatosis or suspicious focal parenchymal lesions. Gallbladder is mildly distended and otherwise unremarkable. The spleen appears normal in size. The adrenal glands are unremarkable in appearance. There is no evidence of biliary or pancreatic ductal dilatation. Pancreas appears mildly atrophic and fatty replaced without a definite discrete or suspicious enhancing nodule appreciable. There is no evidence of bulky abdominal adenopathy. There is prominent atherosclerosis of the abdominal aorta and there is aneurysmal dilatation of the infrarenal abdominal aorta measuring up to 3.3 cm for example on series 5 image 18. This is essentially new, as there was previously only minimal abdominal aortic ectasia measuring 2.3 cm. IMPRESSION: 1. Multiple bilateral renal cysts, predominantly Bosniak 1 and Bosniak 2. Some lesions are too small to fully characterize, but there are no overtly suspicious renal lesions. 2. No suspicious focal liver lesions. 3. Aneurysmal dilatation of the abdominal aorta measuring 3.3 cm, enlarging by 10 mm since 2014. Recommend continued imaging follow-up for this. EXAMINATION: CT PE STUDY, 03/03/2023, 9:54 AM EST. IMPRESSION: 1. I do not see any evidence of pulmonary embolism. There is believed to be pulmonary hypertension given prominently dilated right and left main pulmonary arteries. 2. There is believed to be reactive lio hypertrophy in the hilar and infracarinal regions. 3. The lung chen to me suggest centrilobular emphysema. There is diffuse peribronchial thickening and diffuse mild interstitial accentuation. 4. In the right lower lobe posteriorly there is subpleural airspace consolidation in a curvilinear fashion. There is also infiltrative change in the right paravertebral region in the lower lobe. There is some minimal airspace infiltrate associated with the major fissure on the right in the right upper lobe. There are several nodular irregular subcentimeter densities also seen in the right lung, both in the right lower lobe and right middle lobe. In the left lung I see some patchy consolidation and pneumonic type markings in the lingula near the diaphragm. The remaining left lung is fairly well aerated. Overall the findings to me are suggestive of developing pneumonia predominately centered in the right lower lobe with associated significant peribronchial thickening and reactive lio changes. There are some patchy areas of most likely early airspace infiltrate rather than pulmonary nodularity. There is also, especially in the lung bases, diffuse interstitial thickening. 5. Both kidneys appear to have cystic changes incidentally. CT NECK SOFT TISSUE W IVCON-DATE OF EXAM: Feb 24 2023 1:44PM RESULT: Post-treatment changes: Presumed posttreatment/postradiation changes in the neck including skin thickening, subcutaneous fat stranding, platysmal muscle thickening, and severe atrophy of the bilateral submandibular glands. Nonspecific fat stranding the bilateral parapharyngeal and carotid spaces also likely representing posterior/postradiation change. No abnormal enhancing soft tissue in the base of the tongue or elsewhere in the neck to suggest residual/recurrent neoplasm. Lymph nodes: No cervical lymphadenopathy by size, number or morphologic criteria. Small nonspecific lymph nodes are scattered throughout the neck. Aerodigestive tract: The oral cavity is partially obscured by artifact from dental amalgam. The nasal cavities, naso-oropharynx, pharyngeal mucosal space, laryngeal structures and infraglottic trachea are within normal limits. Major salivary glands: The bilateral submandibular glands appears severely atrophic, likely postradiation changes detailed above. Mild atrophy of the bilateral parotid glands, RIGHT worse than LEFT. Thyroid gland: Within normal limits. Carotid space: Patent bilateral extracranial carotid and jugular systems. Calcified and noncalcified atherosclerotic plaque resulting in moderate narrowing of the proximal RIGHT cervical ICA and mild narrowing of the proximal LEFT cervical ICA, although the study is not optimized for carotid artery assessment. Intracranial contents: Imaged portions within normal limits. Mild generalized volume loss with commensurate ventriculomegaly. Scattered hypoattenuation in the supratentorial white matter is nonspecific but likely representing sequela of chronic microvascular ischemic change. Paranasal sinuses, middle ears, mastoids: Polypoid mucosal thickening versus mucous retention cysts in the inferior RIGHT maxillary sinus. The remaining visualized paranasal sinuses are clear. Mastoid air cells and middle ear cavities appear clear. Orbits: Bilateral pseudophakia. Otherwise, orbits appear unremarkable Bones: No suspicious osseous lesions in the imaged calvarium, skull base and spine. Normal cervicothoracic alignment. Multilevel degenerative disc disease with partially calcified posterior longitudinal ligament resulting in up to level mild spinal canal narrowing at C3-C7. Multilevel mild neural foraminal narrowing. Temporomandibular joints are maintained. Lungs: Imaged lungs are clear. Please see concurrent CT chest for complete evaluation of the intrathoracic contents. IMPRESSION: Primary: 1. Expected post-treatment changes in the neck without evidence of recurrent disease in the primary site. ? Neck: 1. No cervical lymphadenopathy CHEST CT WITH CONTRAST -DATE OF EXAM: Feb 18 2023 2:05PM RESULT: Limitations: None. Lines, tubes, and devices: None. Lung parenchyma and airways: The newly noted 8 mm solid nodule seen in the right lower lobe on 02/05/2023 has slightly decreased in size to 6 mm, measured on series 4 image 155. This is thus favored to be infectious or inflammatory etiology. The newly noted discrete 4 to 5 mm clustered right lower lobe nodules seen on 02/08/2023 are unchanged, measured on series 4 image 171. In addition to the above there is relatively extensive branching [id number]-type micronodularity involving the inferior aspect of the right lower lobe, the right middle lobe and to a lesser extent the left lower lobe, this is similar to perhaps mildly progressed from 02/05/2023 and indicate an infectious or inflammatory bronchiolitis. Mild upper lung predominant emphysema is present. Adherent mucoid debris is seen within the trachea for example on series 4 image 70 and within right lower lobe bronchi for example on series 4 image 122. Mild bronchial wall thickening is noted involving segmental and subsegmental bronchi in the right lower lobe, likely indicating bronchitis. Pleural space: No pleural effusion. No pleural thickening. Lower neck, lymph nodes, and mediastinum: The imaged thyroid gland is normal. No lymphadenopathy in the supraclavicular, axillary, mediastinal, or hilar regions. Heart, pericardium, and thoracic vessels: The thoracic aorta and main pulmonary artery are normal in caliber. The cardiac chambers are normal in size. No coronary artery atherosclerotic calcifications are noted, although the study is not optimized for coronary assessment. No pericardial effusion or thickening. Bones and soft tissues: Mild to moderate multilevel thoracic spine degenerative disc disease noted. No destructive skeletal lesion is present. Upper abdomen: Please see the separate report for the concurrently obtained CT of the abdomen/pelvis. IMPRESSION: 1. Extensive branching xsbr-vr-[id number]-type micronodules are present in the right lower lobe and right middle lobe, and to a lesser extent in the left lower lobe. This is stable to slightly progressed from the CT performed on 02/05/2023, and compatible with an infectious or inflammatory bronchiolitis. 2. The newly noted 8mm right lower lobe nodule seen on 02/05/2023 has slightly decreased in size to 6 mm on today's study, and is thus presumably related to the infectious/inflammatory bronchiolitis. The newly noted cluster of 4 to 5 mm nodules seen in the right lower lobe on 02/05/2023 is unchanged on today's examination and is likely infectious or inflammatory in etiology as well. A follow-up chest CT is recommended following treatment for infection, to confirm resolution. 3. Additional incidental findings are detailed above. CT ABDOMEN AND PELVIS WITH IV CONTRAST -DATE OF EXAM: Feb 18 2023 2:05PM RESULT: Liver: Unremarkable. No mass. Biliary: No bile duct dilation. Unremarkable gallbladder. Spleen: No mass. No splenomegaly. Pancreas: No mass or duct dilation. Adrenals: No mass. Kidneys: Incidental bilateral renal cysts are noted. In addition to the cyst there are several subcentimeter low-attenuation foci in both kidneys which are too small to characterize, these are favored to represent cysts as well. There is a 9 mm intermediate density lesion at the anterior upper pole of the left kidney that is indeterminate, this is seen on series 3 image 41. There is a 9 mm intermediate density lesion at the posterior aspect of the interpolar region of the right kidney on series 3 image 57 that is indeterminate. These could represent hemorrhagic cysts or small solid renal masses. No renal collecting system dilation. GI tract: No dilation or wall thickening. Colonic diverticulosis is noted, there are no CT findings of diverticulitis. Lymph nodes: No abdominal or pelvic lymphadenopathy. Mesentery/Peritoneum: No ascites or mass. Retroperitoneum: No mass. Vasculature: - Abdominal aorta and iliac arteries: 3.2 cm infrarenal abdominal aortic aneurysm present. Moderate calcified atherosclerotic disease noted. - Celiac and SMA: Patent without stenosis. - Portal venous system (SMV, splenic vein, portal vein and branches): Patent. - Hepatic veins: Patent. Pelvis: Mild to moderate prostate enlargement. Small fat-containing left inguinal hernia. No mass, fluid collection or ascites. Bones/Soft Tissues: No destructive skeletal lesion is present. Minimal multilevel lumbar spine degenerative disc disease noted. Lower thorax: Please see the separate report for the concurrently obtained CT of the chest. IMPRESSION: 1. No acute finding in the abdomen or pelvis. 2. Indeterminate 9 mm lesions at the upper pole of the left kidney and interpolar region of the right kidney respectively, the differential diagnosis would include benign hemorrhagic cyst, or small solid renal masses. No previous contrast-enhanced CT imaging is available for comparison to assess stability. Thus further evaluation with renal protocol MRI would be recommended. 3. 3.2 cm infrarenal abdominal aortic aneurysm. 4. Additional incidental findings are detailed above including colonic diverticulosis, mild to moderate prostate enlargement and a small fat-containing left inguinal hernia. ASSESSMENT / PLAN: 1. 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 He is due to see Dr. Holder. 2. Weight loss. Found to have pharyngoesophageal dysphagia. He has been referred for a PEG. He saw Dr. Payan and they decided to defer on the peg. He reports that his appetite has improved. He is aware the possible CT findings could represent aspiration. Patient was seen by speech therapy on 03/04/2023. No safe diet was recommended the patient and the understand risks of continued feeding. Will continue to follow. 3. Lung cancer screening/Nodule. He quit smoking in 2008 but prior to that had a 3 ppd for [address] scans performed while hospitalized in February. He again was found to have a trach in the right lower lobe. Overall, the lung was suspected to represent pneumonia. I will repeat CAT scans in 3 months to ensure clearing. 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 5. Right Kidney.had MRI dated March 12, 2023. This showed multiple bilateral renal cysts. Predominant Bosniak 1 and Bosniak 2. Some of these lesions are too Femara to fully characterize but there are no overtly suspicious renal masses. Some Elements Copied from my note previous note. I have updated where appropriate, and all reflect current medical decision making from today, March 21, 2023 Sushma Brandon MD documented in this encounter [facility] 03-18-2023 History of Present illness Narrative Patient here today to discuss peg tube placement. He is here with his caregiver show states he has last at least 80 pounds since last april. Patient had a Barium swallow on 03/04/2023. Patient states he struggles with swallowing solids and liquids where they feel like they just get stuck. Continues to have dysphagia but is doing better over the last few weeks. GENERAL SURGERY NEW PATIENT CONSULTATION HISTORY AND PHYSICAL Date: 03/18/2023 Time: 3:02 PM Name: Amy Sun PCP: Gunjan Godoy Reason for visit: P.o. intolerance HPI: Mr. Sun is a 72 y.o. male with a history of squamous cell carcinoma of the tongue diagnosed back in 2008. He last underwent chemotherapy and radiation approximately 13 years ago. Since then he has been followed by [facility]. Over the last approximate year he is lost 80 lb. He has had a lack of appetite and has had issues with aspiration. He is trouble tolerating both liquids and solids. He was recently admitted to the hospital for aspiration pneumonia. He had a modified barium swallow at that time which showed difficulty swallowing both thin and thickened liquids. He was referred to my clinic for PEG tube evaluation. During his previous surgery for the squamous cell carcinoma of the tongue he did have a PEG in place. This was used for only 1 protein shake during his entire postoperative course and was later removed. In the 1 week after he made the appointment he and his both report that he has tolerated a diet better, he feels better, is more mobile, and has more energy. PAST MEDICAL HISTORY: Past Medical History: Diagnosis Date Abnormal glucose Bilateral leg edema BPH without urinary obstruction Chronic kidney disease (CKD), stage I Degenerative joint disease Enthesopathy Essential hypertension, benign Fatigue Former smoker 2 PPD x46 years, quite 09/19/2008 GERD (gastroesophageal reflux disease) Hepatic steatosis Hyperlipidemia Impotence of organic origin Insomnia Obesity Testicular hypofunction Tongue cancer Stage IIB, T2, N1, 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 Chemo/RT with Cisplatin and RT and Ethyol. RT completed 02/28/09. PAST SURGICAL HISTORY: Past Surgical History: Procedure Laterality Date NECK SURGERY 2008 for cancer INGUINAL HERNIA REPAIR 1988 VASECTOMY FAMILY HISTORY: Family History Problem Relation Age of Onset Heart Disease - Other Father Heart Disease - Other Brother Heart Disease - Other Other Coronary Artery Disease Other No known problems Mother SOCIAL HISTORY: Social History Tobacco Use Smoking status: Former Years: 46 Types: Cigarettes Smokeless tobacco: Never Substance Use Topics Alcohol use: No Drug use: No Denies significant EtOH/drug use. Smoking: former MEDICATIONS: Prior to Admission Medications: Current Outpatient Medications Medication Sig Last Dose Start Date End Date Authorizing Provider dutasteride (Avodart) 0.5 MG capsule 0.5 mg, Oral, DAILY Taking 02/19/23 Gunjan Godoy MD esomeprazole [address] capsule 40 mg, Oral Taking Historical Provider famotidine 40 MG tablet 40 mg, Oral, DAILY Taking Historical Provider Fexofenadine 180 MG tablet 180 mg, Oral, DAILY Taking Historical Provider Multiple Vitamins-Minerals (CENTRUM SILVER 50+MEN PO) Oral Taking Historical Provider omeprazole [address] capsule 20 mg, Oral, DAILY Taking Historical Provider pilocarpine 5 MG tablet 5 mg, Oral, 3 TIMES DAILY Taking 07/23/22 07/23/23 Historical Provider Rosuvastatin (Crestor) 5 MG tablet 5 mg, Oral, DAILY Taking 02/19/23 Gunjan Godoy MD sulindac 150 MG tablet 150 mg, Oral, 2 TIMES DAILY Taking 02/21/23 Gunjan Godoy MD SUMAtriptan 50 MG tablet 50 mg, Oral, EVERY 2 HOURS PRN Taking 07/23/22 07/23/23 Historical Provider Testosterone 25 MG/2.5GM (1%) Gel gel 2.5 g, Transdermal, DAILY Taking 02/21/23 08/20/23 Gunjan Godoy MD traMADol 50 MG tablet 50 mg, Oral, 3 TIMES DAILY NEEDED Taking 02/19/23 05/20/23 Gunjan Godoy MD Valsartan 160 MG tablet 160 mg, Oral, DAILY Taking 02/19/23 Gunjan Godoy MD predniSONE 10 MG tablet 4 tabs po daily x 3 days, 3 tabs po daily x 3 days, 2 tabs po daily x 3 days, 1 tab po daily x 3 days, then discontinue Patient not taking: Reported on 03/18/2023 Not Taking 03/04/23 Eliseo Brennan APRN-[facility]INA ALLERGIES: No Known Allergies REVIEW OF SYSTEMS: GENERAL: Negative for malaise, significant weight loss and fever HEAD: Negative for headache, swelling. NECK: Negative for goiter, pain and significant neck swelling RESPIRATORY: Negative for cough, wheezing or shortness of breath. CARDIOVASCULAR: Negative for chest pain, leg swelling or palpitations. GI: Negative for abdominal discomfort, blood in stools or black stools or change in bowel habits : No history of dysuria, frequency or incontinence MUSCULOSKELETAL: Negative for joint pain or swelling, back pain or muscle pain. SKIN: Negative for lesions, rash, and itching. PSYCH: Negative for sleep disturbance, mood disorder and recent psychosocial stressors. ENDOCRINE: Negative for cold or heat intolerance, polyuria, polydipsia and goiter. PHYSICAL EXAM: Visit Vitals BP 112/64 (BP Location: Left arm, BP Position: Sitting) Resp 16 Ht 1.829 m (6') Wt 80.3 kg (177 lb) BMI 24.01 kg/m Body mass index is 24.01 kg/m . General appearance: NAD Neuro: AOx3 Head: EOMI; no swelling or lesions of scalp or face ENT: no lumps or lymphadenopathy, thyroid normal to palpation; oropharynx clear, no swelling or erythema Skin: warm, no erythema or rashes Lungs: clear to percussion and auscultation Heart: regular rhythm and S1, S2 normal Abdomen: soft, ND, previous incision in the LUQ from prior PEG Extremities: Normal exam of the extremities. No swelling or pain. Psych: no hurried speech, no flight of ideas, normal affect Assessment: Amy Sun is a 72 y.o. male who had a diagnosis of p.o. intolerance concern for protein calorie malnutrition, recurrent aspiration pneumonia - Labs were independently reviewed and interpreted by me. Any abnormal/normal results are indicated below along with any plan of action from: March 04, 2023 metabolic panel does show a decreased albumin 23.3. His prior albumins were greater than 4 - Imaging was independently reviewed and interpreted by me. Any abnormal/normal results are indicated below along with any plan of action from: March 03, 2023 CT PE reviewed it does show some upper abdominal windows. In this there was a clear window between the stomach and abdominal wall. The colon does not appear to be near this. Plan: - the patient has improved significantly in terms of his p.o. intake and how he feels. He wishes to forego a PEG at this time. He wants to continue to try to eat and drink on his own. He does have a history of aspiration pneumonia and documented issues tolerating both thin and thickened liquids. Feel he will continue to struggle with this but the patient is adamant about postponing. He does have speech therapy follow up later this week. If he continues to work with speech therapy in his able to tolerate his own secretions as well as food and I believe it is reasonable to continue to watch and wait on the PEG. If he does demonstrate further issues of not being able to tolerate anything by mouth or he does not make significant improvements with speech therapy I believe it is reasonable to offer a PEG. The patient is in agreement of the above plan as he really wants to try to do this on his own. Prior to see me back in the clinic I have ordered an albumin, pre-albumin and transferrin level. He was to obtain these labs prior to seeing me. I spent greater than 61 minutes in total reviewing the patient's chart, interviewing the patient, and documenting today's visit. Arley Godoy MD Bariatric and Minimally Invasive General Surgery documented in this encounter [facility] 03-04-2023 Nurse Note Discharge instructions and education reviewed with pt, education provided for dx and new medications, printed education given, denies any questions, IV and tele removed. Speech therapy in room giving recommendations to the patient and his to help avoid aspiration in the future. Patient discharging home with belongings with . [facility] 03-04-2023 History of Present illness Narrative 03/04/23 1027 Time In/Out Time In 1027 Time Out 1041 Total Visit Time 14 minutes Initial Evaluation/Screen Completed? yes General Information RN Approved Intervention as tolerated Admitting Diagnosis pneumonia Surgical Procedure none Past Surgical History Past Surgical History: Procedure Laterality Date NECK SURGERY 2008 for cancer INGUINAL HERNIA REPAIR 1988 VASECTOMY Past Medical History Past Medical History: Diagnosis Date Abnormal glucose Bilateral leg edema BPH without urinary obstruction Chronic kidney disease (CKD), stage I Degenerative joint disease Enthesopathy Essential hypertension, benign Fatigue Former smoker 2 PPD x46 years, quite 09/19/2008 GERD (gastroesophageal reflux disease) Hepatic steatosis Hyperlipidemia Impotence of organic origin Insomnia Obesity Testicular hypofunction Tongue cancer Stage IIB, T2, N1, 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 Chemo/RT with Cisplatin and RT and Ethyol. RT completed 02/28/09. Existing Precautions/Restrictions no known precautions/restrictions Previous Level of Function Bed Mobility/Transfers independent Bathing independent Upper Body Dressing independent Lower Body Dressing independent Grooming independent Toileting independent Eating independent Home Management Skills independent General Pain Documentation (Adult, OB, Peds) Presence of Pain denies pain/discomfort Presence of Pain Score (Auto-calculated) 0 Home Setting Residence House Lives With spouse First floor setup bedroom;walk-in shower Number of Stairs to Enter Home 2 Number of Stairs Within Home 12 Cognitive Status Examination Orientation Status (Cognition) oriented x 4 Level of Consciousness alert Able to Follow Commands (Communication) WNL Personal Safety and Judgment intact Sensory Examination Sensory Examination WFL Range of Motion (ROM) Range of Motion Examination bilateral upper extremity ROM was WNL Manual Muscle Testing (MMT) Dominant Hand right 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 No simultaneous skilled care performed Therapy Frequency no therapy warranted Today's Treatment Included Pt presents with increased cough and some chest pain found to have right sided pneumonia. Pt is highly independent at baseline reports completing several outdoor activities and completing ADL/IADLs without difficulty. pt demonstrates independence with ADLs and functional mobility. No further OT warranted at this time Continue care plan no Goals Goals For Discharge Pt will return home Discussed risk / benefits with patient Therapist Recommendations At Discharge Recommendations OT Services not recommended at Discharge Plan Plan for next session OT evaluation only Therapist Information License # [id number] [facility] [employer] [facility] Inpatient Clinical Dysphagia Evaluation Date of Admission: 03/03/2023 Date of Evaluation: 03/04/2023 Attending Physician: Galen Miller MD Admitting Diagnosis: Pneumonia Treating Diagnosis: Oropharyngeal Dysphagia R13.12 Current Method of Nutrition: Regular Thin Liquids Meds whole with thin liquid History of Presenting Illness: Amy Sun is a 72 y.o. male who presents to [facility] on 03/03/23 for evaluation of generalized weakness, dyspnea, dry heaves, and poor oral intake. CT chest was suggestive of developing pneumonia. Pt has h/o tongue CA in 2008 with radiation and chemotherapy, oropharyngeal dysphagia, malnutrition, weight loss, and GERD. Pt has long h/o dysphagia since having tongue CA and chemo/radiation. ST was consulted for swallow eval given developing pneumonia in RLL and h/o dysphagia. Pt reports frequent coughing, choking, and regurgitation with food/drink/medications recently. Pt has been following with Dr. Holder, ENT, who recommended pt get a PEG tube for supplemental nutrition. Pt reports he is scheduled to have PEG tube placed on 03/17/[address] Eduardo due malnutrition and significant weight loss. CT PE Study 03/03/23: 1. I do not see any evidence of pulmonary embolism. There is believed to be pulmonary hypertension given prominently dilated right and left main pulmonary arteries. 2. There is believed to be reactive lio hypertrophy in the hilar and infracarinal regions. 3. The lung chen to me suggest centrilobular emphysema. There is diffuse peribronchial thickening and diffuse mild interstitial accentuation. 4. In the right lower lobe posteriorly there is subpleural airspace consolidation in a curvilinear fashion. There is also infiltrative change in the right paravertebral region in the lower lobe. There is some minimal airspace infiltrate associated with the major fissure on the right in the right upper lobe. There are several nodular irregular subcentimeter densities also seen in the right lung, both in the right lower lobe and right middle lobe. In the left lung I see some patchy consolidation and pneumonic type markings in the lingula near the diaphragm. The remaining left lung is fairly well aerated. Overall the findings to me are suggestive of developing pneumonia predominately centered in the right lower lobe with associated significant peribronchial thickening and reactive lio changes. There are some patchy areas of most likely early airspace infiltrate rather than pulmonary nodularity. There is also, especially in the lung bases, diffuse interstitial thickening. 5. Both kidneys appear to have cystic changes incidentally. Prior SOFTWARE APPLICATION TESTER history/Instrumentals: Pt finished OP ST at [facility] in August 2022. Pt reports he was discharged from OP ST on regular solids and thin liquids with use of strategies. MBS 07/30/22: Amy Sun presents with mild to moderate oropharyngeal dysphagia in the setting of referral for xerostomia with complaints of globus sensation and difficulties with pills. Pt has hx of tongue cancer s/p radiation in 2008. Per , pt had extensive radiation. Pt with visible scar extending from L ear, below hyolaryngeal region, up towards R ear. Pt reporting tongue scraping vs removal prior to initiation of chemo and radiation. Pt additionally reports he has lost about 60 lbs in the past year, unintentionally. Oral phase characterized by poor bolus form with loss of bolus to the floor of mouth and posteriorly, piecemeal deglutition with liquids, disorganized mastication with delayed AP transit and presence of oral residuals which were partially cleared with repeat swallow and liquid wash. Pharyngeal phase characterized by passive bolus flow with inconsistent swallow initiation at the level of the vallecula and pyriforms, partial hyolaryngeal excursion, incomplete epiglottic inversion, and incomplete laryngeal vestibule closure resulting in deep penetration and aspiration of thin liquids with no sensory response. Cued cough was ineffective in clearing material from below vocal cords. Chin tuck ineffective in reducing deep penetration / aspiration. Pt with diminished pharyngeal constriction and presence of diffuse pharyngeal residuals which were not cleared despite cued repeat swallows and liquid wash. Pt noted with increased residuals following trials of increased viscosity which were not cleared resulting in deep penetration with aspiration of residuals on subsequent swallows. Pt with laryngeal vestibule and vocal chord residue which was consistently aspirated on repeat swallows. Pt walks independently. He is on room air with permanent dentition and good oral hygiene. Pt plays golf twice a week and denies recent dx of pneumonia. Given above, recommend continuing with thin liquids, regular solids, and medications in puree. Additionally, recommend OP ST to address aforementioned deficits. Will ask Dr. Holder for referral. MBS 2019: Amy Sun exhibits mild oral and mild-moderate pharyngeal dysphagia in setting of progressive dysphagia complaints since 2017 and history of base of tongue cancer s/p radiation. Oral phase is overall functional for needs and is impacted by xerostomia. Pharyngeal phase is with mildly reduced tongue base traction resulting in mild-mod tongue base and vallecular residuals; though question esophageal component and possible influence upon pharyngeal residuals. Additionally, note reduced hyolaryngeal excursion with ~75-90% epiglottal ROM. Educated Mr. Sun to results of MBS and recommendations for trial dysphagia intervention vs. Further evaluation of esophageal structure and phase of swallowing via EDG vs. Esophagram. He reports follow up appointment with Dr. Holder, ENT, on and will further discucss results and recommendations with decision made at that time. Recommended Diet Grade: Dysphagia 3 (mechanically advanced) (soft/moist) Recommended Liquid Consistency: Thin liquids Recommended Medication Administration: Whole, In puree Swallow Strategies: Bolus volume change, Alternate solids/liquids, Effortful swallow, Liquid wash Past Medical History: Diagnosis Date Abnormal glucose Bilateral leg edema BPH without urinary obstruction Chronic kidney disease (CKD), stage I Degenerative joint disease Enthesopathy Essential hypertension, benign Fatigue Former smoker 2 PPD x46 years, quite 09/19/2008 GERD (gastroesophageal reflux disease) Hepatic steatosis Hyperlipidemia Impotence of organic origin Insomnia Obesity Testicular hypofunction Tongue cancer Stage IIB, T2, N1, 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 Chemo/RT with Cisplatin and RT and Ethyol. RT completed 02/28/09. Past Surgical History: Procedure Laterality Date NECK SURGERY 2008 for cancer INGUINAL HERNIA REPAIR 1988 VASECTOMY Evaluation: Position For Evaluation: upright Anticipatory Phase: Impaired Exam limited/influenced by cognition: No Current Respiratory Status: Room Air ORAL MOTOR EXAM Mandibular Strength:WFL ROM: WFL Labial Strength:WFL ROM: WFL Coordination:WFL Lingual Strength:WFL ROM: WFL Coordination:WFL Oral Mucosa xerostomia Velar Movement WFL Vocal Quality Hoarse Dentition missing several Oral Motor Summary: Pt reports chronic xerostomia s/p radiation. TRIAL RESPONSE Thin Liquids (IDDSI 0) Cup, Straw, and Self Fed cough, Mildly Thick Liquids (IDDSI 2)/Chloride Cup and Self Fed throat clear cough Pureed (IDDSI 4) Tsp and Self Fed cough Regular (IDDSI 7) Self Fed cough ORAL PHASE: Mild Labial Closure Intact Mastication Impaired Bolus transfer Impaired Oral Clearance Impaired Cough before the swallow Not observed during assessment Oral phase summary: Mild oral dysphagia per results of previous MBS characterized by poor bolus form with loss of bolus to the floor of mouth and posteriorly, piecemeal deglutition with liquids, disorganized mastication with delayed AP transit and presence of oral residuals which were partially cleared with repeat swallow and liquid wash. PHARYNGEAL PHASE: documented impairment Perceived Swallow Appears Delayed Cough Response Yes Throat Clear Yes Suspect Pharyngeal Constriction Deficit Yes Pharyngeal Phase Summary: Moderate pharyngeal dysphagia per results of previous MBS characterized by passive bolus flow with inconsistent swallow initiation at the level of the vallecula and pyriforms, partial hyolaryngeal excursion, incomplete epiglottic inversion, and incomplete laryngeal vestibule closure resulting in deep penetration and aspiration of thin liquids with no sensory response. Also suspect esophageal component as pt reports frequent regurgitation of food/drink/pills. STRATEGIES TRIALED/Response Mildly thick liquids Effective in decreasing s/s of aspiration/penetration Laureen Swallow Screen: (administered by: not administered) Clinical Impressions Amy Sun is a 72 y.o. male seen 03/04/2023 for dysphagia evaluation given developing RLL pneumonia and h/o oropharyngeal dysphagia. He presents with Mild oral phase and documented pharyngeal phase impairment. His oral phase is characterized by deficits in oral bolus formation, control, transfer, and clearance due to xerostomia. Previously documented pharyngeal dysphagia characterized by delayed swallow initiation, partial hyolaryngeal excursion, incomplete epiglottic inversion, and incomplete laryngeal vestibule closure resulting in deep penetration and silent aspiration of thin liquids (per results of previous MBS). Results and recommendations discussed with pt, pt's spouse, and RN (Genesis), including diet recommendations of NPO with meds pending results of MBS. Recommend meds be administered whole in puree. Plan for MBS to be completed later today, 03/04. Diet Recommendations and Strategies NPO with meds Meds whole in puree Allow sips of liquids Plan of Care: (plan for DC home today per RUNNER OUT) Frequency: TBD following MBS Duration: TBD Goals: Blend Plant Operator: TBD Sofie Freed MA, [facility]-SOFTWARE APPLICATION TESTER Speech-Language Pathologist Total Treatment Time: 40 minutes Chart reviewed. ADMINISTRATIVE DIETITIAN met with Amy and his Christa bedside. Amy was eating and asked his to answer all. He is hard of hearing as well and did not have his hearing aides in. He was alert and oriented. His , Christa, stated they live together in a house. Prior to feeling sick with pneumonia Amy golf, drives, and rides 4 wheelers. So when he was weak and not eating well they knew he was ill. He has history of tongue and throat cancer and is missing some of his esophagus causing swallowing and eating issues but this is the first issue with pneumonia per Christa. No HME use in the home. Is walking in his room at this time. No Home care in the home, had outpatient speech but has ended. Is willing to have home health or outpatient speech again if it is ordered and needed. ADMINISTRATIVE DIETITIAN will follow up after speech and PT evaluations. Discharge plans home with and home health/ outpatient speech if needed 03/04/23 0827 Referral Information Arrived From home or self-care Readmission Information Was patient readmitted within 30 Days? Yes Information Source Information Source spouse (Patient was eating and asked his to answer) Information Source Name Christa Information Source Number [phone] Outpatient Providers Outpatient Providers Updated In IHIS No Contact Information Rip Tailer/SW Added to Care Team Yes This Director Of Front Office is Primary Rip Tailer/SW Yes Social Work Contact Name Johanna ORDAZ Stereo Equipment Installer's Phone Number [phone] Living Environment Lives With spouse Living Arrangements house Provides Primary Care For no one Primary Care Provided By self Support System Immediate family Able to Return to Prior Arrangements yes Functional Status Patient's Functional Status Prior To This Admission? Independent Are There Status Changes This Admission? Yes Changes Observed Since Admission? Physical (weakness, but stated he is still ambulating in the room) Concerns With Patient Being Able To Care For Themselves At Discharge? Has Assistance (Friend, Family, Skilled Provider) Can Support Person Meet The Care Needs Of The Patient? Yes Employment/Financial Employed? Retired Employment/Financial Concerns no Source Of Income social security;pension/mcfp Financial Concerns none Insurance Medical Insurance Verified Yes Prescription Coverage Yes Pharmacy updated in IHIS Yes Initial Discharge Planning Home Care Services (SAP BW ARCHITECT) No Home Therapies (SAP BW ARCHITECT) None DME (SAP BW ARCHITECT) None Medical Supplies (SAP BW ARCHITECT) None Patient Goal for Discharge Get better Anticipated discharge disposition Home Anticipated Services at Discharge Speech Therapy;Outpatient follow up Anticipated Changes Related to Illness none Current Discharge Risk >65 years of age Transportation Available family or friend will provide Home Care Services (SAP BW ARCHITECT) Additional Home Care Services (SAP BW ARCHITECT) no documented in this encounter [employer] 03-04-2023 Miscellaneous Notes Discharge instructions and education reviewed with pt, education provided for dx and new medications, printed education given, denies any questions, IV and tele removed. Speech therapy in room giving recommendations to the patient and his to help avoid aspiration in the future. Patient discharging home with belongings with . PT consult received and chart reviewed. Pt had just worked with OT and states that he is having no difficulty with mobility. PT states that he is very independent and walks without difficulty. Pt has no history of falls. Will sign off at this time per above and pt request. Patient resting quietly in chair, assessment unchanged from previous. No changes to previous assessment. No changes in previous assessment. Assessment unchanged from RN's previous assessment. Lung sounds and cough remain the same. Associated Problem(s): Hyperlipidemia Resume home medication as ordered Follow up after discharged with PCP Associated Problem(s): Essential hypertension Resume home medication as ordered Follow up after discharged with PCP Hydralazine PRN for SBP> 160 Monitor VS Associated Problem(s): Gastroesophageal reflux disease without esophagitis Protonix ordered for hospital stay Resume home treatment at discharge Associated Problem(s): Cough PRN medication for cough ordered Continue to monitor Associated Problem(s): Leukocytosis White count@ 19.6 on arrival Blood cultures pending, sputum culture ordered IV antibiotics Continue to monitor Associated Problem(s): Pneumonia CT PE showed no PE but did show findings to me are suggestive of developing pneumonia predominately centered in the right lower lobe with associated significant peribronchial thickening and reactive lio changes Will check urine antigens, inflammatory markers, sputum culture and MRSA screen COVID negative Influenza negative IV antibiotics and breathing treatments ordered Currently on room air Incentive spirometry DVT/GI prophylaxis Social work consulted for discharge planning Follow chest XR and inflammatory markers documented in this encounter [facility] 03-04-2023 Progress note Formatting of t his note might be different from the original. PT consult received and chart reviewed. Pt had just worked with OT and states that he is having no difficulty with mobility. PT states that he is very independent and walks without difficulty. Pt has no history of falls. Will sign off at this time per above and pt request. [facility] Work Phone: 03-04-2023 Nurse Note Patient resting quietly in chair, assessment unchanged from previous. [facility] 03-04-2023 Hospital course Narrative Images from the original note were not included. Discharge Summary Summary Time: 03/04/23 11:50 AM Name: Amy Sun Age: 72 y.o. Birthday: 1950 Admit Date: 03/03/2023 8:39 AM Discharge Date: 03/04/2023 Discharge Diagnosis: Pneumonia On room air. Cx remain negative. Complete atb/ steroid taper. Leukocytosis White count@ 19.6 on arrival 8.8 today. Complete atb. Cough PRN medication for cough ordered Gastroesophageal reflux disease without esophagitis Protonix ordered for hospital stay Resume home treatment at discharge Essential hypertension Resume home medication as ordered Follow up after discharged with PCP Hyperlipidemia Resume home medication as ordered Follow up after discharged with PCP Pharyngoesophageal dysphagia- ST following. MBS today. Pt has fu appointment for peg tube. History of tongue cancer Elevated troponin I level- flat trend. No ACS. No cp. Brief Summary of Hospital Course: With nausea vomiting and shortness of breath. CT chest showed multifocal pneumonia. Patient was placed on antibiotics steroids. His cultures remain negative. He was tolerating a diet today. His white blood cell count is improved. Patient and are adamantly requesting discharge today. He will complete a course of antibiotics and steroid taper. He was to follow up with his PCP. Speech therapy is requesting modified barium swallow before discharge today. Discharge Vital Signs: Blood pressure 106/57, pulse 63, temperature 98 F (36.7 C), temperature source Temporal, resp. rate 24, height 1.829 m (6'), weight 78.7 kg (173 lb 6.4 oz), SpO2 91 %. O2 Sat (%): 91 % (03/04 844) O2 Device: room air (03/04 844) Flow (L/min): 2 (03/04 0700) Discharge Labs: Lab Results Component Value Date WBC 8.8 03/04/2023 HGB 12.9 (L) 03/04/2023 HCT 40.4 (L) 03/04/2023 PLATELET 176 03/04/2023 MCV 87.9 03/04/2023 @LASTMAGNESIUM(1D,2)@ Lab Results Component Value Date INR 1.31 (H) 03/04/2023 PT 16.4 (H) 03/04/2023 Lab Results Component Value Date CREATSERUM 0.71 03/04/2023 BUN 19 03/04/2023 SODIUM 139 03/04/2023 POTASSIUM 3.7 03/04/2023 CHLORIDE 106 03/04/2023 CO2 29 03/04/2023 No results found for: SPGRVTYUR, SPECGRAVUR, GLUCOSEURINE, BILIRUBINURI, KETONESURINE, BLOODURINE, PHURINE, NITRITEURINE, NITRITESURIN, LEUKOCESTUR, WBCURINE, RBCURINE, BACTERIAURIN PHYSICAL EXAM: General: Patient resting comfortably. Awake. No acute distress. Cardiovascular: Regular rate and rhythm, without murmurs, rubs, or gallops. Respiratory: Bilateral Upper and Lower Lobes without wheezes, rales, or rhonchi, diminished. Abdomen: Soft, rounded, non-tender. Bowel sounds present x4 quadrants. No rebound. No organomegaly or masses noted upon deep palpation. Extremities: No edema, clubbing or cyanosis, pulses palpable 2+ distally. Skin: Warm, Dry, Intact. Discharge Medications: Medication List for when you go home START taking these medications Morning Afternoon Evening Bedtime As Needed levoFLOXacin 750 MG TABS Take 1 tablet by mouth daily for 5 days. Commonly known as: LEVAQUIN predniSONE 10 MG TABS 4 tabs po daily x 3 days, 3 tabs po daily x 3 days, 2 tabs po daily x 3 days, 1 tab po daily x 3 days, then discontinue Commonly known as: DELTASONE CONTINUE taking these medications Morning Afternoon Evening Bedtime As Needed CENTRUM SILVER 50+MEN PO Take by mouth. Notes to patient: Resume this home medication as you were before being admitted. dutasteride 0.5 MG CAPS Take 1 capsule by mouth daily. Commonly known as: Avodart For diagnoses: Benign prostatic hyperplasia with lower urinary tract symptoms, symptom details unspecified Notes to patient: Resume this home medication as you were before being admitted. esomeprazole [address] capsule Take 1 capsule by mouth. Commonly known as: NEXIUM Last time this was given: Protonix (equivalent) was given to you this morning. Take next dose tomorrow morning. famotidine 40 MG TABS Take 1 tablet by mouth daily. Commonly known as: PEPCID Last time this was given: Protonix (equivalent) was given to you this morning. Take next dose tomorrow morning. Fexofenadine 180 MG TABS Take 1 tablet by mouth daily. Commonly known as: NAKITA Last time this was given: Resume this home medication as you were before being admitted. omeprazole [address] capsule Take 1 capsule by mouth daily. Commonly known as: PRILOSEC Last time this was given: Resume this home medication as you were before being admitted. pilocarpine 5 MG TABS Take 1 tablet by mouth Three times a day. Commonly known as: SALAGEN Last time this was given: Resume this home medication as you were before being admitted. Rosuvastatin 5 MG TABS Take 1 tablet by mouth daily. Commonly known as: Crestor For diagnoses: Hyperlipidemia, unspecified hyperlipidemia type Last time this was given: Resume this home medication as you were before being admitted. sulindac 150 MG TABS Take 1 tablet by mouth 2 times daily. Commonly known as: CLINORIL Last time this was given: Resume this home medication as you were before being admitted. SUMAtriptan 50 MG TABS Take 1 tablet by mouth Every 2 hours as needed. Commonly known as: IMITREX Last time this was given: Resume this home medication as you were before being admitted. Testosterone 25 MG/2.5GM (1%) GEL gel Place 2.5 g on skin daily. For diagnoses: Testicular hypofunction traMADol 50 MG TABS Take 1 tablet by mouth 3 times daily as needed. Commonly known as: ULTRAM For diagnoses: Arthritis Last time this was given: Resume this home medication as you were before being admitted. Valsartan 160 MG TABS Take 1 tablet by mouth daily. Commonly known as: DIOVAN For diagnoses: Benign hypertension Last time this was given: Resume this home medication as you were before being admitted. STOP taking these medications Pantoprazole [address] tablet DR Commonly known as: PROTONIX Discharge Activity: Resume pre-hospital activities as tolerated. Discharge Diet: Resume pre-hospital diet as tolerated. Discharge Follow-up: Gunjan Godoy MD [address] [facility] [phone] Follow up in 1 week(s) Discharge Disposition: Patient will be discharged in stable condition to home Discharge Time: Including assessment, planning, and medication reconciliation was 9 minutes Gregg Brennan CNP completing Discharge Summary for collaborating physician. Please note portions of this note utilized Dragon dictation software, please excuse any typographical or grammatical errors Associated attestation - Galen Miller MD - 03/04/2023 4:57 PM EST I have personally seen and examined Amy Sun. I have personally reviewed all available clinical data related to this encounter including, but not limited to, radiolgraphs and reports, laboratory data, and procedure reports. I have been fully involved in formulation of the assessment and plan. Patient feels better today ROS: Ten systems reviewed, unless limited by patient' or care providers' inability or unavailability. Reported above or following. Assessment and additional plans: Pneumonia. Leukocytosis which has improved. Hypertension. Oropharyngeal dysphagia in a patient has history of tongue cancer. Plan: Finish course of antibiotics. Aspiration precautions. Blood pressure control. Follow-up with primary care physician. Total time spent discharging this patient today 31 minutes. Contact me if you need any clarification. Galen Miller MD documented in this encounter [facility] 03-04-2023 Hospital Discharge instructions Genesis Gaines RN - 03/04/2023 11:04 AM EST Resume home activity as tolerated. Genesis Gaines RN - 03/04/2023 11:05 AM EST Resume home diet as tolerated- follow recommendations and instructions given to you by speech therapy. Genesis Gaines RN - 03/04/2023 11:05 AM EST Return or worsening of symptoms. In the event of an emergency, call 911 or go to the nearest ER. The following attachments cannot be sent through Care Everywhere.levofloxacin (oral) ([place])prednisone ([place])Aspiration Pneumonia ([place])documented in this encounter [facility] 03-04-2023 Nurse Note No changes to previous assessment. [facility] [employer] [facility] 03-04-2023 Nurse Note No changes in previous assessment. [facility] [employer] [facility] 03-03-2023 Nurse Note Assessment unchanged from RN's previous assessment. Lung sounds and cough remain the same. [facility] [employer] [facility] 03-03-2023 History and physical note History and Physical Examination 03/03/23 2:15 PM Amy 1950 Chief Complaint: Chief Complaint Patient presents with Cough X 2 days Chest Congestion History of Present Illness: Mr. Amy Sun is a 72 year old male with a past medical history including hypertension, hyperlipidemia, GERD, CKD stage 1, BPH, chronic fatigue, DJD, hepatic steatosis, insomnia, tongue cancer and former tobacco abuse who presented to ER with complaints of cough, congestion and dry heaves. Patient states for the past 2 days he has not been eating or drinking well due to dry heaves. Patient has history of tongue cancer in his father by [facility]. He has not had any chemotherapy or radiation therapy for 13 years. Patient is set to have a PEG tube placed as she has lost over 80 lb. He has not been eating or drinking well over the past several days. The right-sided chest pain is intermittent worse with cough or deep inspiration. Does not change with movement. He has been going on intermittently for the past few weeks. Denies hemoptysis. Denies any headache, vision changes or earache. He denies any abdominal pain. No diarrhea. He denies any yellowing of the skin or eyes. And had any sick contacts. Verbalizes no other concerns. Patient had a fever of 101 yesterday that was responsive to Tylenol. He has not had a fever today. He has not taken any medication to mask a fever. He has not had his medications today as of yet. ER work up involved labs that showed white count@ 19.6 and troponin@ 23. COVID, RSV and Influenza negative. CT PE showed no PE but was suggestive of developing pneumonia. Patient afebrile on arrival, HR@ 91, RR@ 20, BP@ 117/82 and oxygenation WNL on room air. Due to findings and complaints, he was started on IV antibiotics and breathing treatments and admitted to floor for further treatment and care of pneumonia. Today the patient denies headaches, blurred vision, lightheadedness, fever, chills, chest pain, shortness of breath. The patient denies back pain, diarrhea/constipation, dysuria, unusual arthralgias, myalgias, skin rashes or lesions. Call light within reach. 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 (central serous retinopathy), 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 Epiretinal membrane (ERM) of left eye 06/02/2017 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/02/2017 Benign prostatic hyperplasia with lower urinary tract symptoms 07/31/2016 Arthritis 07/31/2016 Impotence of organic origin Abnormal glucose Testicular hypofunction Fatigue Enthesopathy Gastroesophageal reflux disease without esophagitis Hyperlipidemia BPH without urinary obstruction Degenerative joint disease Bilateral leg edema Chronic kidney disease (CKD), stage I Obesity Tear film insufficiency 06/05/2016 Pseudophakia of both eyes 04/06/2015 Essential hypertension 03/14/2015 Astigmatism of left eye 03/14/2015 Hepatic steatosis Malignant neoplasm of base of tongue 11/25/2008 Past Medical History: Diagnosis Date Abnormal glucose Bilateral leg edema BPH without urinary obstruction Chronic kidney disease (CKD), stage I Degenerative joint disease Enthesopathy Essential hypertension, benign Fatigue Former smoker 2 PPD x46 years, quite 09/19/2008 GERD (gastroesophageal reflux disease) Hepatic steatosis Hyperlipidemia Impotence of organic origin Insomnia Obesity Testicular hypofunction Tongue cancer Stage IIB, T2, N1, 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 Chemo/RT with Cisplatin and RT and Ethyol. RT completed 02/28/09. Past Surgical History: Procedure Laterality Date NECK SURGERY 2008 for cancer INGUINAL HERNIA REPAIR 1988 VASECTOMY Social History Tobacco Use Smoking status: Former Years: 46 Types: Cigarettes Smokeless tobacco: Never Substance Use Topics Alcohol use: No Family History Problem Relation Age of Onset Heart Disease - Other Father Heart Disease - Other Brother Heart Disease - Other Other Coronary Artery Disease Other No known problems Mother (Not in a hospital admission) No Known Allergies Review of Systems: Ten systems reviewed and found to be negative unless otherwise stated in the history and present illness. PHYSICAL EXAM: Patient Vitals for the past 8 hrs: BP Temp Temp src Pulse Resp SpO2 Height Weight 03/03/23 1026 116/74 -- -- 90 18 90 % -- -- 03/03/23 0837 117/82 97.9 F (36.6 C) Oral 91 20 -- -- -- 03/03/23 0836 -- -- -- -- -- 93 % -- -- 03/03/23 0835 -- -- -- -- -- -- 1.829 m (6') 77.1 kg (170 lb) General: Patient resting comfortably. Awake. No acute distress. HEENT: Normalcephalic, atraumatic. Pupils equal, round, reactive, to light and accomodation B/L. Bilateral nares patent without obvious drainage. Oral mucosa moist, pink, intact without ulcers or lesions. Neck: No JVD, no thyromegaly, no anterior or posterior lymphadenopathy. Cardiovascular: Regular rate and rhythm, without murmurs, rubs, or gallops. Respiratory: Bilateral Upper and Lower Lobes anterior and posteriorly without wheezes, rales, or rhonchi Abdomen: Soft, rounded, non-tender. Bowel sounds present x4 quadrants. No rebound. No organomegaly or masses noted upon deep palpation. Extremities: No edema, clubbing or cyanosis, pulses palpable 2+ distally. Neuro: Patient awake, alert, orientedx3. Cranial nerves 2-12 grossly intact upon seated examination. No focal defiects noted. Diagnostics: Lab Results Component Value Date WBC 19.6 (H) 03/03/2023 HGB 15.4 03/03/2023 HCT 47.7 03/03/2023 PLATELET 208 03/03/2023 MCV 87.5 03/03/2023 Lab Results Component Value Date CREATSERUM 0.80 03/03/2023 BUN 22 (H) 03/03/2023 SODIUM 137 03/03/2023 POTASSIUM 3.6 03/03/2023 CHLORIDE 98 03/03/2023 CO2 32 (H) 03/03/2023 Full Code Impression and Plan: Principal Problem: Pneumonia Active Problems: Gastroesophageal reflux disease without esophagitis Hyperlipidemia Essential hypertension Leukocytosis Cough Fever Dry heaves Elevated troponin I level Pneumonia CT PE showed no PE but did show findings to me are suggestive of developing pneumonia predominately centered in the right lower lobe with associated significant peribronchial thickening and reactive lio changes Will check urine antigens, inflammatory markers, sputum culture and MRSA screen COVID negative Influenza negative IV antibiotics and breathing treatments ordered Currently on room air Incentive spirometry DVT/GI prophylaxis Social work consulted for discharge planning Follow chest XR and inflammatory markers Leukocytosis White count@ 19.6 on arrival Blood cultures pending, sputum culture ordered IV antibiotics Continue to monitor Cough PRN medication for cough ordered Continue to monitor Gastroesophageal reflux disease without esophagitis Protonix ordered for hospital stay Resume home treatment at discharge Essential hypertension Resume home medication as ordered Follow up after discharged with PCP Hydralazine PRN for SBP> 160 Monitor VS Hyperlipidemia Resume home medication as ordered Follow up after discharged with PCP PT OT SS for dc planning GI/DVT prophylaxis with protonix and Lovenox This plan of care was initiated in collaboration with the attending physician. I personally spent 25 minutes in the review of diagnostics, images, labs and assessment of patient to provide care for this patient. Please note Portions of this note utilized [employer] dictation software, please excuse any typographical or grammatical errors Associated attestation - Galen Miller MD - 03/03/2023 2:51 PM EST I have personally seen and examined Amy Sun. I have personally reviewed all available clinical data related to this encounter including, but not limited to, radiolgraphs and reports, laboratory data, and procedure reports. I have been fully involved in formulation of the assessment and plan. Patient presented to emergency room due to complaints of generalized weakness and dyspnea anginal 72 hours. Also patient had dry heaves some very poor oral intake. Patient complains of cough productive of minimal amount of phlegm. ROS: Ten systems reviewed, unless limited by patient' or care providers' inability or unavailability. Reported above or following. Assessment and additional plans: Pneumonia and elevated white blood cell counts. Hypertension. Dyslipidemia. Esophagitis and gastroesophageal reflux disease. Muscle weakness and deconditioning and weight loss. Plan: Antibiotics. Monitor white blood cell count. Monitor blood cultures. Bronchial dilators as needed. DVT prophylaxis. Speech therapy and swallow evaluation. Antiemetics. IV fluids. Blood pressure control. Contact me if you need any clarification. Galen Miller MD [facility] 03-03-2023 Evaluation + Plan note Associated Problem(s): Hyperlipidemia Resume home medication as ordered Follow up after discharged with PCP [facility] 03-03-2023 Evaluation + Plan note Associated Problem(s): Essential hypertension Resume home medication as ordered Follow up after discharged with PCP Hydralazine PRN for SBP> 160 Monitor VS [facility] 03-03-2023 History and physical note History and Physical Examination 03/03/23 2:15 PM Amy 1950 Chief Complaint: Chief Complaint Patient presents with Cough X 2 days Chest Congestion History of Present Illness: Mr. Amy Sun is a 72 year old male with a past medical history including hypertension, hyperlipidemia, GERD, CKD stage 1, BPH, chronic fatigue, DJD, hepatic steatosis, insomnia, tongue cancer and former tobacco abuse who presented to ER with complaints of cough, congestion and dry heaves. Patient states for the past 2 days he has not been eating or drinking well due to dry heaves. Patient has history of tongue cancer in his father by [facility]. He has not had any chemotherapy or radiation therapy for 13 years. Patient is set to have a PEG tube placed as she has lost over 80 lb. He has not been eating or drinking well over the past several days. The right-sided chest pain is intermittent worse with cough or deep inspiration. Does not change with movement. He has been going on intermittently for the past few weeks. Denies hemoptysis. Denies any headache, vision changes or earache. He denies any abdominal pain. No diarrhea. He denies any yellowing of the skin or eyes. And had any sick contacts. Verbalizes no other concerns. Patient had a fever of 101 yesterday that was responsive to Tylenol. He has not had a fever today. He has not taken any medication to mask a fever. He has not had his medications today as of yet. ER work up involved labs that showed white count@ 19.6 and troponin@ 23. COVID, RSV and Influenza negative. CT PE showed no PE but was suggestive of developing pneumonia. Patient afebrile on arrival, HR@ 91, RR@ 20, BP@ 117/82 and oxygenation WNL on room air. Due to findings and complaints, he was started on IV antibiotics and breathing treatments and admitted to floor for further treatment and care of pneumonia. Today the patient denies headaches, blurred vision, lightheadedness, fever, chills, chest pain, shortness of breath. The patient denies back pain, diarrhea/constipation, dysuria, unusual arthralgias, myalgias, skin rashes or lesions. Call light within reach. 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 (central serous retinopathy), 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 Epiretinal membrane (ERM) of left eye 06/02/2017 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/02/2017 Benign prostatic hyperplasia with lower urinary tract symptoms 07/31/2016 Arthritis 07/31/2016 Impotence of organic origin Abnormal glucose Testicular hypofunction Fatigue Enthesopathy Gastroesophageal reflux disease without esophagitis Hyperlipidemia BPH without urinary obstruction Degenerative joint disease Bilateral leg edema Chronic kidney disease (CKD), stage I Obesity Tear film insufficiency 06/05/2016 Pseudophakia of both eyes 04/06/2015 Essential hypertension 03/14/2015 Astigmatism of left eye 03/14/2015 Hepatic steatosis Malignant neoplasm of base of tongue 11/25/2008 Past Medical History: Diagnosis Date Abnormal glucose Bilateral leg edema BPH without urinary obstruction Chronic kidney disease (CKD), stage I Degenerative joint disease Enthesopathy Essential hypertension, benign Fatigue Former smoker 2 PPD x46 years, quite 09/19/2008 GERD (gastroesophageal reflux disease) Hepatic steatosis Hyperlipidemia Impotence of organic origin Insomnia Obesity Testicular hypofunction Tongue cancer Stage IIB, T2, N1, 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 Chemo/RT with Cisplatin and RT and Ethyol. RT completed 02/28/09. Past Surgical History: Procedure Laterality Date NECK SURGERY 2008 for cancer INGUINAL HERNIA REPAIR 1987 VASECTOMY Social History Tobacco Use Smoking status: Former Years: 46 Types: Cigarettes Smokeless tobacco: Never Substance Use Topics Alcohol use: No Family History Problem Relation Age of Onset Heart Disease - Other Father Heart Disease - Other Brother Heart Disease - Other Other Coronary Artery Disease Other No known problems Mother (Not in a hospital admission) No Known Allergies Review of Systems: Ten systems reviewed and found to be negative unless otherwise stated in the history and present illness. PHYSICAL EXAM: Patient Vitals for the past 8 hrs: BP Temp Temp src Pulse Resp SpO2 Height Weight 03/03/23 1026 116/74 -- -- 90 18 90 % -- -- 03/03/23 0837 117/82 97.9 F (36.6 C) Oral 91 20 -- -- -- 03/03/23 0836 -- -- -- -- -- 93 % -- -- 03/03/23 0835 -- -- -- -- -- -- 1.829 m (6') 77.1 kg (170 lb) General: Patient resting comfortably. Awake. No acute distress. HEENT: Normalcephalic, atraumatic. Pupils equal, round, reactive, to light and accomodation B/L. Bilateral nares patent without obvious drainage. Oral mucosa moist, pink, intact without ulcers or lesions. Neck: No JVD, no thyromegaly, no anterior or posterior lymphadenopathy. Cardiovascular: Regular rate and rhythm, without murmurs, rubs, or gallops. Respiratory: Bilateral Upper and Lower Lobes anterior and posteriorly without wheezes, rales, or rhonchi Abdomen: Soft, rounded, non-tender. Bowel sounds present x4 quadrants. No rebound. No organomegaly or masses noted upon deep palpation. Extremities: No edema, clubbing or cyanosis, pulses palpable 2+ distally. Neuro: Patient awake, alert, orientedx3. Cranial nerves 2-12 grossly intact upon seated examination. No focal defiects noted. Diagnostics: Lab Results Component Value Date WBC 19.6 (H) 03/03/2023 HGB 15.4 03/03/2023 HCT 47.7 03/03/2023 PLATELET 208 03/03/2023 MCV 87.5 03/03/2023 Lab Results Component Value Date CREATSERUM 0.80 03/03/2023 BUN 22 (H) 03/03/2023 SODIUM 137 03/03/2023 POTASSIUM 3.6 03/03/2023 CHLORIDE 98 03/03/2023 CO2 32 (H) 03/03/2023 Full Code Impression and Plan: Principal Problem: Pneumonia Active Problems: Gastroesophageal reflux disease without esophagitis Hyperlipidemia Essential hypertension Leukocytosis Cough Fever Dry heaves Elevated troponin I level Pneumonia CT PE showed no PE but did show findings to me are suggestive of developing pneumonia predominately centered in the right lower lobe with associated significant peribronchial thickening and reactive lio changes Will check urine antigens, inflammatory markers, sputum culture and MRSA screen COVID negative Influenza negative IV antibiotics and breathing treatments ordered Currently on room air Incentive spirometry DVT/GI prophylaxis Social work consulted for discharge planning Follow chest XR and inflammatory markers Leukocytosis White count@ 19.6 on arrival Blood cultures pending, sputum culture ordered IV antibiotics Continue to monitor Cough PRN medication for cough ordered Continue to monitor Gastroesophageal reflux disease without esophagitis Protonix ordered for hospital stay Resume home treatment at discharge Essential hypertension Resume home medication as ordered Follow up after discharged with PCP Hydralazine PRN for SBP> 160 Monitor VS Hyperlipidemia Resume home medication as ordered Follow up after discharged with PCP PT OT SS for dc planning GI/DVT prophylaxis with protonix and Lovenox This plan of care was initiated in collaboration with the attending physician. I personally spent 25 minutes in the review of diagnostics, images, labs and assessment of patient to provide care for this patient. Please note Portions of this note utilized [employer] dictation software, please excuse any typographical or grammatical errors Associated attestation - Galen Miller MD - 03/03/2023 2:51 PM EST I have personally seen and examined Amy Sun. I have personally reviewed all available clinical data related to this encounter including, but not limited to, radiolgraphs and reports, laboratory data, and procedure reports. I have been fully involved in formulation of the assessment and plan. Patient presented to emergency room due to complaints of generalized weakness and dyspnea anginal 72 hours. Also patient had dry heaves some very poor oral intake. Patient complains of cough productive of minimal amount of phlegm. ROS: Ten systems reviewed, unless limited by patient' or care providers' inability or unavailability. Reported above or following. Assessment and additional plans: Pneumonia and elevated white blood cell counts. Hypertension. Dyslipidemia. Esophagitis and gastroesophageal reflux disease. Muscle weakness and deconditioning and weight loss. Plan: Antibiotics. Monitor white blood cell count. Monitor blood cultures. Bronchial dilators as needed. DVT prophylaxis. Speech therapy and swallow evaluation. Antiemetics. IV fluids. Blood pressure control. Contact me if you need any clarification. Galen Miller MD documented in this encounter [facility] 03-03-2023 Evaluation + Plan note Associated Problem(s): Gastroesophageal reflux disease without esophagitis Protonix ordered for hospital stay Resume home treatment at discharge [facility] 03-03-2023 Evaluation + Plan note Associated Problem(s): Cough PRN medication for cough ordered Continue to monitor [facility] 03-03-2023 Evaluation + Plan note Associated Problem(s): Leukocytosis White count@ 19.6 on arrival Blood cultures pending, sputum culture ordered IV antibiotics Continue to monitor [facility] 03-03-2023 Evaluation + Plan note Associated Problem(s): Pneumonia CT PE showed no PE but did show findings to me are suggestive of developing pneumonia predominately centered in the right lower lobe with associated significant peribronchial thickening and reactive lio changes Will check urine antigens, inflammatory markers, sputum culture and MRSA screen COVID negative Influenza negative IV antibiotics and breathing treatments ordered Currently on room air Incentive spirometry DVT/GI prophylaxis Social work consulted for discharge planning Follow chest XR and inflammatory markers [facility] 03-03-2023 Emergency department Note Patient SpO2 with ear probe 88%, placed on 2L O2 via nc. [facility] 03-03-2023 Emergency department Note Patient SpO2 with ear probe 88%, placed on 2L O2 via nc. Meal tray given to patient Patient reports taking 1 Excedrin for headache, supplied by SO. Patient aware of Tylenol prn order available. Breakfast called down for pt at this time Patient's SO states he has not taken any home medications since Friday except Tylenol yesterday for a fever. Williams Shaver spoke to Dr. Miller at this time Emergency Department Report [facility] EMERGENCY [facility]PARTMENT Service Date:.03/03/23 PCP: Gunjan Godoy Chief Complaint: Chief Complaint Patient presents with Cough X 2 days Chest Congestion HPI Amy Sun is a 72 y.o. male presents to the ED today due to cough, chest congestion and right-sided chest pain. Patient has history of tongue cancer in his father by [facility]. He has not had any chemotherapy or radiation therapy for 13 years. Patient is set to have a PEG tube placed as she has lost over 80 lb. He has not been eating or drinking well over the past several days. The right-sided chest pain is intermittent worse with cough or deep inspiration. Does not change with movement. He has been going on intermittently for the past few weeks. Denies hemoptysis. Denies any headache, vision changes or earache. He denies any abdominal pain. No diarrhea. He denies any yellowing of the skin or eyes. And had any sick contacts. Verbalizes no other concerns. Patient had a fever of 101 yesterday that was responsive to Tylenol. He has not had a fever today. He has not taken any medication to mask a fever. He has not had his medications today as of yet. Review of Systems: Review of Systems Constitutional: Positive for fever. HENT: Positive for congestion. Eyes: Negative. Respiratory: Positive for cough. Cardiovascular: Positive for chest pain. Gastrointestinal: Negative. Endocrine: Negative. Genitourinary: Negative. Musculoskeletal: Negative. Allergic/Immunologic: Negative. Neurological: Negative. Hematological: Negative. Psychiatric/Behavioral: Negative. 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 Chemo/RT with Cisplatin and RT and Ethyol. RT completed 02/28/09. Past Surgical History: Past Surgical History: Procedure Laterality Date NECK SURGERY 2008 for cancer INGUINAL HERNIA REPAIR 1988 VASECTOMY Allergies: No Known Allergies Medications: Patient's Medications New Prescriptions No medications on file Previous Medications DUTASTERIDE (AVODART) 0.5 MG CAPSULE Take 1 capsule by mouth daily. ESOMEPRAZOLE [address] CAPSULE Take 1 capsule by mouth. FAMOTIDINE 40 MG TABLET Take 1 tablet by mouth daily. FEXOFENADINE 180 MG TABLET Take 1 tablet by mouth daily. MULTIPLE VITAMINS-MINERALS (CENTRUM SILVER 50+MEN PO) Take by mouth. OMEPRAZOLE [address] CAPSULE Take 1 capsule by mouth daily. PANTOPRAZOLE [address] TABLET DR Take 1 tablet by mouth daily. PANTOPRAZOLE [address] TABLET DR Take 1 tablet by mouth daily. PILOCARPINE 5 MG TABLET Take 1 tablet by mouth Three times a day. ROSUVASTATIN (CRESTOR) 5 MG TABLET Take 1 tablet by mouth daily. SULINDAC 150 MG TABLET Take 1 tablet by mouth 2 times daily. SUMATRIPTAN 50 MG TABLET Take 1 tablet by mouth Every 2 hours as needed. TESTOSTERONE 25 MG/2.5GM (1%) GEL GEL Place 2.5 g on skin daily. TRAMADOL 50 MG TABLET Take 1 tablet by mouth 3 times daily as needed. VALSARTAN 160 MG TABLET Take 1 tablet by mouth daily. Modified Medications No medications on file Discontinued Medications No medications on file Family History: Family History Problem Relation Age of Onset Heart Disease - Other Father Heart Disease - Other Brother Heart Disease - Other Other Coronary Artery Disease Other No known problems Mother Social History: Social History Socioeconomic History Marital status: Spouse name: Not on file Number of children: Not on file Years of education: Not on file Highest education level: Not on file Occupational History Not on file Tobacco Use Smoking status: Former Years: 46 Types: Cigarettes Smokeless tobacco: Never Substance and Sexual Activity Alcohol use: No Drug use: No Sexual activity: Not on file Other Topics Concern Not on file Social History Narrative Not on file Social Determinants of Health Financial Resource Strain: Not on file Food Insecurity: Not on file Transportation Needs: Not on file Physical Activity: Not on file Stress: Not on file Social Connections: Not on file Intimate Partner Violence: Not on file Housing Stability: Not on file Physical Exam: General well-nourished well-developed patient in no acute distress and no respiratory distress. Answers my questions appropriately and follows my commands without difficulty. HEENT: normocephalic atraumatic. Pupils are equal round reactive to light and extraocular motions are intact. Tympanic membranes are clear bilaterally. Nasal mucosa is not boggy or erythematous. Oral mucosa is moist. There is no erythema or exudate. There is no swelling in the posterior ororopharynx. No unilateral swelling indicate abscess. There is no swelling of the lips, tongue or floor the mouth. No indication of Pradeep's angina.Neck supple no adenopathy trachea is midline. Lungs: lungs are clear to auscultation bilaterally. There are no Rales, wheezes or rhonchi. Heart: Heart is of regular rate and rhythm. No murmur or gallop. Abdomen: soft and nontender no rebound or guarding in all 4 quadrants to both superficial and deep palpation. Bowel sounds active all 4 quadrants. Negative psoas, obturator heel jar. emity's. Dorsalis pedis pulse and posterior tibial pulses are 2+ in the lower extremities. Vital Signs During ED Visit Patient Vitals for the past 24 hrs: BP Temp Temp src Pulse Resp SpO2 Height Weight 03/03/23 1026 116/74 -- -- 90 18 90 % -- -- 03/03/23 0837 117/82 97.9 F (36.6 C) Oral 91 20 -- -- -- 03/03/23 0836 -- -- -- -- -- 93 % -- -- 03/03/23 0835 -- -- -- -- -- -- 1.829 m (6') 77.1 kg (170 lb) Differential Diagnosis: COVID, influenza, RSV, pneumonia, bronchitis, PE, costochondritis, pleurisy, other etiologies Orders/Results: Orders Placed This Encounter [facility] 1 - NASOPHARYNGEAL BLOOD CULTURE, PERIPHERAL 1ST SITE BLOOD CULTURE, PERIPHERAL 2ND SITE CT PE STUDY CBC, EDIF, PLATELET COMPREHENSIVE METABOLIC PANEL INFLUENZA A AND B, PCR Troponin I, High sensitivity LACTATE, BLOOD ECG Sodium chloride 0.9% IV solution 1,000 mL iohexol (OMNIPAQUE) 350 MG/ML injection 75 mL Sodium chloride 0.9% IV solution 75 mL cefTRIAXone (ROCEPHIN) 1 g in sodium chloride 0.9% (MB PLUS) 50 mL (total volume) IVPB Azithromycin (ZITHROMAX) 500 mg in Sodium chloride 0.9% 250 mL (total volume) IVPB RESPIRATORY SYNCYTIAL VIRUS PCR Radiographic Imaging CT PE STUDY Final Result IMPRESSION: 1. I do not see any evidence of pulmonary embolism. There is believed to be pulmonary hypertension given prominently dilated right and left main pulmonary arteries. 2. There is believed to be reactive lio hypertrophy in the hilar and infracarinal regions. 3. The lung chen to me suggest centrilobular emphysema. There is diffuse peribronchial thickening and diffuse mild interstitial accentuation. 4. In the right lower lobe posteriorly there is subpleural airspace consolidation in a curvilinear fashion. There is also infiltrative change in the right paravertebral region in the lower lobe. There is some minimal airspace infiltrate associated with the major fissure on the right in the right upper lobe. There are several nodular irregular subcentimeter densities also seen in the right lung, both in the right lower lobe and right middle lobe. In the left lung I see some patchy consolidation and pneumonic type markings in the lingula near the diaphragm. The remaining left lung is fairly well aerated. Overall the findings to me are suggestive of developing pneumonia predominately centered in the right lower lobe with associated significant peribronchial thickening and reactive lio changes. There are some patchy areas of most likely early airspace infiltrate rather than pulmonary nodularity. There is also, especially in the lung bases, diffuse interstitial thickening. 5. Both kidneys appear to have cystic changes incidentally. Lab/Imaging Results Summary: As above Procedures:none Procedures EKG RESULTS RHYTHM: Normal sinus rhythm RATE : 75 AXIS : Normal INTERVALS : CT interval [address] SEGMENT CHANGES : None COMPARISON TO PRIOR : none SUMMARY : No acuteEsc ST-elevationu MO initial EKG per And myself review. I ordered, interpreted and acted upon this electrocardiogram during the patients ED visit. Progress Notes/Re-evaluation: Patient's metabolic panel sodium 137 potassium 3.6 chloride 98 CO2 of 32 BUN 22 creatinine 0.8 total bili 1.5 glucose 129 troponin is 18 patient has a 19.8 white count H&H stable. Platelet count 208. Positive left shift. Patient has negative influenza RSV and COVID. Patient underwent CT scanning of the chest which showed a right upper lobe and right lower lobe pneumonia. This would coincide with the patient's elevated white count. Patient had blood cultures x2 drawn lactate drawn started on Rocephin Zithromax. I spoke to Monica the nursing tire building supervisor which would have a bed available later on. I discussed this with the family they want to proceed with the plan. I spoke to Dr. lindsay and arrange hospitalization for this patient. ED Summary: As above Clinical Impression: right side upper lower lobe Pneumonia No diagnosis found. No follow-ups on file. New Prescriptions No medications on file Discontinued Medications No medications on file An After Visit Summary was printed and given to the patient with above information. . Burton Shaver PA-C 03/03/23 1123 Associated attestation - Eliseo Patton MD - 03/04/2023 10:51 AM EST The Mid-level provider independently saw this patient. I was available for consult. documented in this encounter [facility] 03-03-2023 Emergency department Note Meal tray given to patient [facility] 03-03-2023 Emergency department Note Patient reports taking 1 Excedrin for headache, supplied by SO. Patient aware of Tylenol prn order available. [facility] 03-03-2023 Emergency department Note Breakfast called down for pt at this time [facility] 03-03-2023 Emergency department Note Patient's SO states he has not taken any home medications since Friday except Tylenol yesterday for a fever. [facility] 03-03-2023 Emergency department Note Williams Shaver spoke to Dr. Miller at this time [facility] 03-03-2023 Physician Emergency department Note Emergency Department Report [facility] EMERGENCY [facility]PARTMENT Service Date:.03/03/23 PCP: Gunjan Godoy Chief Complaint: Chief Complaint Patient presents with Cough X 2 days Chest Congestion HPI Amy Sun is a 72 y.o. male presents to the ED today due to cough, chest congestion and right-sided chest pain. Patient has history of tongue cancer in his father by [facility]. He has not had any chemotherapy or radiation therapy for 13 years. Patient is set to have a PEG tube placed as she has lost over 80 lb. He has not been eating or drinking well over the past several days. The right-sided chest pain is intermittent worse with cough or deep inspiration. Does not change with movement. He has been going on intermittently for the past few weeks. Denies hemoptysis. Denies any headache, vision changes or earache. He denies any abdominal pain. No diarrhea. He denies any yellowing of the skin or eyes. And had any sick contacts. Verbalizes no other concerns. Patient had a fever of 101 yesterday that was responsive to Tylenol. He has not had a fever today. He has not taken any medication to mask a fever. He has not had his medications today as of yet. Review of Systems: Review of Systems Constitutional: Positive for fever. HENT: Positive for congestion. Eyes: Negative. Respiratory: Positive for cough. Cardiovascular: Positive for chest pain. Gastrointestinal: Negative. Endocrine: Negative. Genitourinary: Negative. Musculoskeletal: Negative. Allergic/Immunologic: Negative. Neurological: Negative. Hematological: Negative. Psychiatric/Behavioral: Negative. 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 Chemo/RT with Cisplatin and RT and Ethyol. RT completed 02/28/09. Past Surgical History: Past Surgical History: Procedure Laterality Date NECK SURGERY 2008 for cancer INGUINAL HERNIA REPAIR 1988 VASECTOMY Allergies: No Known Allergies Medications: Patient's Medications New Prescriptions No medications on file Previous Medications DUTASTERIDE (AVODART) 0.5 MG CAPSULE Take 1 capsule by mouth daily. ESOMEPRAZOLE [address] CAPSULE Take 1 capsule by mouth. FAMOTIDINE 40 MG TABLET Take 1 tablet by mouth daily. FEXOFENADINE 180 MG TABLET Take 1 tablet by mouth daily. MULTIPLE VITAMINS-MINERALS (CENTRUM SILVER 50+MEN PO) Take by mouth. OMEPRAZOLE [address] CAPSULE Take 1 capsule by mouth daily. PANTOPRAZOLE [address] TABLET DR Take 1 tablet by mouth daily. PANTOPRAZOLE [address] TABLET DR Take 1 tablet by mouth daily. PILOCARPINE 5 MG TABLET Take 1 tablet by mouth Three times a day. ROSUVASTATIN (CRESTOR) 5 MG TABLET Take 1 tablet by mouth daily. SULINDAC 150 MG TABLET Take 1 tablet by mouth 2 times daily. SUMATRIPTAN 50 MG TABLET Take 1 tablet by mouth Every 2 hours as needed. TESTOSTERONE 25 MG/2.5GM (1%) GEL GEL Place 2.5 g on skin daily. TRAMADOL 50 MG TABLET Take 1 tablet by mouth 3 times daily as needed. VALSARTAN 160 MG TABLET Take 1 tablet by mouth daily. Modified Medications No medications on file Discontinued Medications No medications on file Family History: Family History Problem Relation Age of Onset Heart Disease - Other Father Heart Disease - Other Brother Heart Disease - Other Other Coronary Artery Disease Other No known problems Mother Social History: Social History Socioeconomic History Marital status: Spouse name: Not on file Number of children: Not on file Years of education: Not on file Highest education level: Not on file Occupational History Not on file Tobacco Use Smoking status: Former Years: 46 Types: Cigarettes Smokeless tobacco: Never Substance and Sexual Activity Alcohol use: No Drug use: No Sexual activity: Not on file Other Topics Concern Not on file Social History Narrative Not on file Social Determinants of Health Financial Resource Strain: Not on file Food Insecurity: Not on file Transportation Needs: Not on file Physical Activity: Not on file Stress: Not on file Social Connections: Not on file Intimate Partner Violence: Not on file Housing Stability: Not on file Physical Exam: General well-nourished well-developed patient in no acute distress and no respiratory distress. Answers my questions appropriately and follows my commands without difficulty. HEENT: normocephalic atraumatic. Pupils are equal round reactive to light and extraocular motions are intact. Tympanic membranes are clear bilaterally. Nasal mucosa is not boggy or erythematous. Oral mucosa is moist. There is no erythema or exudate. There is no swelling in the posterior ororopharynx. No unilateral swelling indicate abscess. There is no swelling of the lips, tongue or floor the mouth. No indication of Pradeep's angina.Neck supple no adenopathy trachea is midline. Lungs: lungs are clear to auscultation bilaterally. There are no Rales, wheezes or rhonchi. Heart: Heart is of regular rate and rhythm. No murmur or gallop. Abdomen: soft and nontender no rebound or guarding in all 4 quadrants to both superficial and deep palpation. Bowel sounds active all 4 quadrants. Negative psoas, obturator heel jar. emity's. Dorsalis pedis pulse and posterior tibial pulses are 2+ in the lower extremities. Vital Signs During ED Visit Patient Vitals for the past 24 hrs: BP Temp Temp src Pulse Resp SpO2 Height Weight 03/03/23 1026 116/74 -- -- 90 18 90 % -- -- 03/03/23 0837 117/82 97.9 F (36.6 C) Oral 91 20 -- -- -- 03/03/23 0836 -- -- -- -- -- 93 % -- -- 03/03/23 0835 -- -- -- -- -- -- 1.829 m (6') 77.1 kg (170 lb) Differential Diagnosis: COVID, influenza, RSV, pneumonia, bronchitis, PE, costochondritis, pleurisy, other etiologies Orders/Results: Orders Placed This Encounter [facility] 1 - NASOPHARYNGEAL BLOOD CULTURE, PERIPHERAL 1ST SITE BLOOD CULTURE, PERIPHERAL 2ND SITE CT PE STUDY CBC, EDIF, PLATELET COMPREHENSIVE METABOLIC PANEL INFLUENZA A AND B, PCR Troponin I, High sensitivity LACTATE, BLOOD ECG Sodium chloride 0.9% IV solution 1,000 mL iohexol (OMNIPAQUE) 350 MG/ML injection 75 mL Sodium chloride 0.9% IV solution 75 mL cefTRIAXone (ROCEPHIN) 1 g in sodium chloride 0.9% (MB PLUS) 50 mL (total volume) IVPB Azithromycin (ZITHROMAX) 500 mg in Sodium chloride 0.9% 250 mL (total volume) IVPB RESPIRATORY SYNCYTIAL VIRUS PCR Radiographic Imaging CT PE STUDY Final Result IMPRESSION: 1. I do not see any evidence of pulmonary embolism. There is believed to be pulmonary hypertension given prominently dilated right and left main pulmonary arteries. 2. There is believed to be reactive lio hypertrophy in the hilar and infracarinal regions. 3. The lung chen to me suggest centrilobular emphysema. There is diffuse peribronchial thickening and diffuse mild interstitial accentuation. 4. In the right lower lobe posteriorly there is subpleural airspace consolidation in a curvilinear fashion. There is also infiltrative change in the right paravertebral region in the lower lobe. There is some minimal airspace infiltrate associated with the major fissure on the right in the right upper lobe. There are several nodular irregular subcentimeter densities also seen in the right lung, both in the right lower lobe and right middle lobe. In the left lung I see some patchy consolidation and pneumonic type markings in the lingula near the diaphragm. The remaining left lung is fairly well aerated. Overall the findings to me are suggestive of developing pneumonia predominately centered in the right lower lobe with associated significant peribronchial thickening and reactive lio changes. There are some patchy areas of most likely early airspace infiltrate rather than pulmonary nodularity. There is also, especially in the lung bases, diffuse interstitial thickening. 5. Both kidneys appear to have cystic changes incidentally. Lab/Imaging Results Summary: As above Procedures:none Procedures EKG RESULTS RHYTHM: Normal sinus rhythm RATE : 75 AXIS : Normal INTERVALS : CT interval [address] SEGMENT CHANGES : None COMPARISON TO PRIOR : none SUMMARY : No acuteEsc ST-elevationu MO initial EKG per And myself review. I ordered, interpreted and acted upon this electrocardiogram during the patients ED visit. Progress Notes/Re-evaluation: Patient's metabolic panel sodium 137 potassium 3.6 chloride 98 CO2 of 32 BUN 22 creatinine 0.8 total bili 1.5 glucose 129 troponin is 18 patient has a 19.8 white count H&H stable. Platelet count 208. Positive left shift. Patient has negative influenza RSV and COVID. Patient underwent CT scanning of the chest which showed a right upper lobe and right lower lobe pneumonia. This would coincide with the patient's elevated white count. Patient had blood cultures x2 drawn lactate drawn started on Rocephin Zithromax. I spoke to Monica the nursing tire building supervisor which would have a bed available later on. I discussed this with the family they want to proceed with the plan. I spoke to Dr. lindsay and arrange hospitalization for this patient. ED Summary: As above Clinical Impression: right side upper lower lobe Pneumonia No diagnosis found. No follow-ups on file. New Prescriptions No medications on file Discontinued Medications No medications on file An After Visit Summary was printed and given to the patient with above information. . Burton Shaver PA-C 03/03/23 1123 Associated attestation - Eliseo Patton MD - 03/04/2023 10:51 AM EST The Mid-level provider independently saw this patient. I was available for consult. [employer] 02-26-2023 History of Present illness Narrative Oncology Nutrition Therapy Initial Assessment I have communicated my name and active licensure. The patient's identity and physical location were verified at the time of this visit. Either the patient or their legal technical services representative has been informed of the risks and benefits of -- and alternatives to -- treatment through a remote evaluation and consents to proceed with the evaluation remotely. RECOMMENDED MALNUTRITION DIAGNOSIS: SEVERE PROTEIN-CALORIE MALNUTRITION In the context of Chronic Illness or Injury based on: Unintentional Weight Loss: >7.5% in 3 months Insufficient Energy Intake: Less than 75% energy intake compared to estimated needs for greater than or equal to 1 month Nutrition Diagnosis: Inadequate oral intake, related to, pharyngoesophageal dysphagia, as evidenced by pt notes and interview. PEG placement is planned for the last week of February. Nutrition Intervention: -Consider meal prepping prior to treatment. - aim for 5-6 small/frequent meals - incorporate lean sources of protein/plant based proteins at meals - Stay well hydrated - sip on fluids throughout the day - start supplementation: Ensure Plus or Complete; Boost Plus 4 times per day -Prepare for PEG placement Nutrition Monitoring & Evaluation: PO intake Supplement tolerance Wt status Biochemical Markers Skin integrity Plan of care Patient Condition: Pt presents for nutrition counseling for base of tongue cancer/ lung cancer nodule - workup. Pt is currently being treated with TBD. Pt denies food allergies/intolerances. Interval History: Since his last visit, he reports that he has had episodes of aspiration. He is seeing Dr. Holder. He has lost 81 pounds. He has had trouble eating. He had on modified barium swallows and this showed oropharyngeal dysfunction with episodes of silent aspiration. I have confirmed and edited as necessary the interval history obtained by Dr. Brandon on 02/14/23 and all reflect current status. Nutrition Assessment: Patient is declining from a nutritional standpoint. NOTE: Pt has High iron; caution with feeding. EN plan Dr. Eduardo to place PEG ([place]) consult on 03/17/23 Diet History (24hr recall): Breakfast - big breakfast Snack - Lunch - Snack - Dinner - fish and chips Snack - Beverages - limited Alcohol- Vitamins/Supplements - Ensure Clear -(2), [place] instant breakfast with whole milk Guillermo retiree and prefers [employer] products. Topics addressed: Educational materials provided: none this visit Readiness to Learn: Cognitive ability: Alert and oriented Motivation to learn: Interested Family support: High - Very involved in pt care Instruction provided to: Patient and Spouse Patient learns best by: Multiple Methods Factors affecting learning: None Physical limitations affecting learning: None Anthropometrics: HEIGHT/WEIGHT/BSA HEIGHT BODY SURFACE AREA WEIGHT 02/05/2021 6' 2.016 2.32 226 lb 6.4 oz 05/15/2021 6' 2.016 2.23 210 lb 8 oz 11/12/2021 2.23 209 lb 6.4 oz 12/13/2021 2.2 203 lb 11.2 oz 06/10/2022 2.19 202 lb 14.4 oz 11/27/2022 6' 2.016 2.1 186 lb 8 oz 12/04/2022 2.12 189 lb 02/05/2023 6' 2.016 2.05 177 lb 14.4 oz 02/14/2023 2.03 174 lb 11.2 oz Estimated body mass index is 22.42 kg/m as calculated from the following: Height as of 02/05/23: 188 cm (6' 2.02). Weight as of 02/14/23: 79.2 kg (174 lb 11.2 oz). Resting Metabolic Rate: 1617 Weight Change: 8% weight loss in 2 months Dosing Weight: 79 kg Estimated kilocalorie needs: 1489-3475 kilocalories determined by 25-30 kcal/kg Estimated protein needs: 95-118 grams determined by 1.2-1.5 g/kg Dosing weight Estimated fluid needs: 8201-2439 milliliters based on 1 mL per kcal Nutrition Focused Physical Exam: Unable to perform exam due to patient unable to participate, will re-attempt during reassessment. Potential Signs of Inflammation: chronic condition Allergies: Patient has no known allergies. Medications: Current Outpatient Medications Medication Sig Dispense Refill iv contrast (will be provided with radiology test) CT Chest W -Inject, intravenously, once for 1 dose.No IV access, insert saline lock prior to the beginning of sedation, infusion, injection of imaging exam. Discontinue saline lock post exam. If Pt. has a central line or IVAD, may access for administration according to line specific nursing protocol. Once exam is complete flush line and de-access according to line specific nursing protocol in the CT contrast administration guidelines link. 1 Each 0 iv contrast (will be provided with radiology test) CT ABD/PEL -Inject, intravenously, once for 1 dose.No IV access, insert saline lock prior to the beginning of sedation, infusion, injection of imaging exam. Discontinue saline lock post exam. If Pt. has a central line or IVAD, may access for administration according to line specific nursing protocol. Once exam is complete flush line and de-access according to line specific nursing protocol in the CT contrast administration guidelines link. 1 Each 0 enteric contrast (will be provided with radiology test) For CT ABD/PEL W IVCON Routine order Administer, As Directed One Time Only, via Oral, Rectal, both Oral and Rectal, Enteric Tube, Stoma or Indwelling Catheter, Enteric Contrast as designated per enteric contrast guidelines 1 Each 0 dutasteride (AVODART) 0.5 mg capsule Take 1 capsule by mouth once daily. pantoprazole DR (PROTONIX) 40 mg tablet valsartan (DIOVAN) 320 mg tablet Take 160 mg by mouth once daily. propylene glycol/peg 400 (BLINK TEARS LUBRICATING) Eye Drops Use 1 Drop in both eyes as needed. traMADol (ULTRAM) 50 mg tablet Take 1 tablet by mouth twice daily. testosterone (ANDROGEL) 50 mg/5 g (1%) gel Apply 0.5 Tubes as directed once daily. FAMOTIDINE 40 mg tablet Take 40 mg by mouth once daily. No current facility-administered medications for this visit. Need for Follow up: Will follow up weekly Referred/Supervised by: Dr. Nitin LEMA Billing Type: Initial Assess/15 min 2 units Billed Time: 30 minutes Signed by: Zoya Hillman RD, SHARRI documented in this encounter [facility] 02-24-2023 History of Present illness Narrative Radiology Service Progress Note PATIENT NAME: Amy Sun DATE OF SERVICE: February 24, 2023 TIME: 2:13 PM PATIENT IDENTITY VERIFICATION COMPLETED USING TWO (2) IDENTIFIERS: Name and Date of confirmed by patient verbally. FALL SCREENING: Has the patient had 2 falls in the last year or 1 fall with injury or currently using an Ambulatory Assistive Device (Walker, Cane, Wheelchair, Crutches, etc.)? No PATIENT GENDER DATA: Male PATIENT RELEVANT IMPLANT DATA REVIEWED: Not Applicable RADIOLOGY DEPARTMENT: CT; Exam(s) Completed: Neck PERIPHERAL IV DATA: 22g right ac. D/c after scan SIGNED BY: RT Shauna(R) February 24, 2023 2:13 PM documented in this encounter [facility] 02-21-2023 History of Present illness Narrative GERD: He denies having heartburn, admits to swallowing difficulties, denies chest pains, is taking his medication as prescribed. Hyperlipidemia: He is taking medications as directed. Lab Results Component Value Date CHOLESTEROL 161 08/09/2022 TRIG 146 08/09/2022 HDL 51 08/09/2022 LDLCALC 81 08/09/2022 His last lipid panel was done on 08/09/22, and his ratio of Total Cholesterol/HDL was 3.16. He is having medication side effects. There is a FH of IHD or stroke. Arthritis: His symptoms include: joint pain, joint swelling, neck pain, and stiffness of left hand, of right hand, and of right hip. He has tried tramadol with improvement. He denies side effects from Rx. Patient is currently on Testosterone for testicular hypofunction. Patient is supposed to have peg tube placed in the next week or so. Chief Complaint Patient presents with Esophageal Reflux Hyperlipidemia Arthritis GERD: He denies having heartburn, admits to swallowing difficulties, denies chest pains, is taking his medication as prescribed. Hyperlipidemia: He is taking medications as directed. Lab Results Component Value Date CHOLESTEROL 161 08/09/2022 TRIG 146 08/09/2022 HDL 51 08/09/2022 LDLCALC 81 08/09/2022 His last lipid panel was done on 08/09/22, and his ratio of Total Cholesterol/HDL was 3.16. He is having medication side effects. There is a FH of IHD or stroke. Arthritis: His symptoms include: joint pain, joint swelling, neck pain, and stiffness of left hand, of right hand, and of right hip. He has tried tramadol with improvement. He denies side effects from Rx. Patient is currently on Testosterone for testicular hypofunction. Patient is supposed to have peg tube placed in the next week or so. LUIS Sun is a 72 year old male who presents to the clinic for esophageal reflux, hyperlipidemia and arthritis follow up. Esophageal Reflux He complains of choking, dysphagia and heartburn. This is a chronic problem. The current episode started more than 1 year ago. The problem occurs constantly. The problem has been unchanged. The heartburn is located in the substernum. The heartburn is of moderate intensity. The heartburn does not wake him from sleep. The heartburn does not limit his activity. The heartburn changes with position. The symptoms are aggravated by certain foods and lying down. Associated symptoms include fatigue and weight loss. Pertinent negatives include no anemia or melena. He has tried a PPI and head elevation for the symptoms. The treatment provided mild relief. No Known Allergies Outpatient Medications Prior to Visit Medication Sig Dispense Refill dutasteride (Avodart) 0.5 MG capsule Take 1 capsule by mouth daily. 14 capsule 0 famotidine 40 MG tablet Take 1 tablet by mouth daily. Multiple Vitamins-Minerals (CENTRUM SILVER 50+MEN PO) Take by mouth. Pantoprazole [address] tablet DR Take 1 tablet by mouth daily. 90 tablet 1 Rosuvastatin (Crestor) 5 MG tablet Take 1 tablet by mouth daily. 14 tablet 0 traMADol 50 MG tablet Take 1 tablet by mouth 3 times daily as needed. 21 tablet 0 Valsartan 160 MG tablet Take 1 tablet by mouth daily. 14 tablet 0 Testosterone 25 MG/2.5GM (1%) Gel gel Place 2.5 g on skin daily. 225 g 1 Fexofenadine 180 MG tablet Take 1 tablet by mouth daily. (Patient not taking: Reported on 02/21/2023) Pantoprazole [address] tablet DR Take 1 tablet by mouth daily. (Patient not taking: Reported on 02/21/2023) 30 tablet 0 No facility-administered medications prior to visit. 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 Chemo/RT with Cisplatin and RT and Ethyol. RT completed 02/28/09. family history includes Coronary Artery Disease in an other family member; Heart Disease - Other in his brother, father, and another family member; No known problems in his mother. reports that he has quit smoking. His smoking use included cigarettes. He has never used smokeless tobacco. He reports that he does not drink alcohol and does not use drugs. Past Surgical History: Procedure Laterality Date NECK SURGERY 2008 for cancer INGUINAL HERNIA REPAIR 1988 VASECTOMY Review of Systems Visit Vitals BP 132/70 (BP Location: Left arm, BP Position: Sitting) Temp 97.8 F (36.6 C) (Temporal) Ht 1.855 m (6' 1.03) Wt 78.7 kg (173 lb 9.6 oz) BMI 22.88 kg/m Review of Systems Constitutional: Positive for fatigue and weight loss. Respiratory: Positive for choking. Gastrointestinal: Positive for dysphagia and heartburn. Negative for melena. Physical Exam Physical Exam Assessment & Plan Problem List Items Addressed This Visit Endocrine Testicular hypofunction Relevant Medications Testosterone 25 MG/2.5GM (1%) Gel gel Other Relevant Orders TESTOSTERONE Hyperlipidemia - Primary Relevant Orders LIPID PANEL W CALCULATED LDL LIPID PANEL W CALCULATED LDL Urinary Benign prostatic hyperplasia with lower urinary tract symptoms Other Visit Diagnoses Severe protein-calorie malnutrition Relevant Orders COMPREHENSIVE METABOLIC PANEL Prostate cancer screening Relevant Orders PSA, SCREENING Dysphagia, unspecified type Relevant Orders COMPREHENSIVE METABOLIC PANEL CBC,PLATELETS Gunjan Godoy MD 02/21/2023, 5:50 PM documented in this encounter [facility] 02-18-2023 History of Present illness Narrative Radiology Service Progress Note PATIENT NAME: Amy Sun DATE OF SERVICE: February 18, 2023 TIME: 2:06 PM PATIENT IDENTITY VERIFICATION COMPLETED USING TWO (2) IDENTIFIERS: Name and Date of confirmed by patient verbally. FALL SCREENING: Has the patient had 2 falls in the last year or 1 fall with injury or currently using an Ambulatory Assistive Device (Walker, Cane, Wheelchair, Crutches, etc.)? No PATIENT GENDER DATA: Male PATIENT RELEVANT IMPLANT DATA REVIEWED: Not Applicable RADIOLOGY DEPARTMENT: CT; Exam(s) Completed: Chest Abdomen Pelvis PERIPHERAL IV DATA: 22g right ac. D/c after scan SIGNED BY: RT Shauna(R) February 18, 2023 2:06 PM documented in this encounter [facility] 02-05-2023 History of Present illness Narrative Radiology Service Progress Note PATIENT NAME: Amy Sun DATE OF SERVICE: February 05, 2023 TIME: 2:01 PM PATIENT IDENTITY VERIFICATION COMPLETED USING TWO (2) IDENTIFIERS: Name and Date of confirmed by patient verbally. FALL SCREENING: Has the patient had 2 falls in the last year or 1 fall with injury or currently using an Ambulatory Assistive Device (Walker, Cane, Wheelchair, Crutches, etc.)? No PATIENT GENDER DATA: Male PATIENT RELEVANT IMPLANT DATA REVIEWED: Not Applicable RADIOLOGY DEPARTMENT: CT; Exam(s) Completed: Chest PERIPHERAL IV DATA: Not applicable SIGNED BY: RT Shauna(R) February 05, 2023 2:01 PM documented in this encounter [facility] 11-27-2022 History of Present illness Narrative Radiology Service Progress Note PATIENT NAME: Amy Sun DATE OF SERVICE: November 27, 2022 TIME: 1:52 PM PATIENT IDENTITY VERIFICATION COMPLETED USING TWO (2) IDENTIFIERS: Name and Date of confirmed by patient verbally. FALL SCREENING: Has the patient had 2 falls in the last year or 1 fall with injury or currently using an Ambulatory Assistive Device (Walker, Cane, Wheelchair, Crutches, etc.)? No PATIENT GENDER DATA: Male PATIENT RELEVANT IMPLANT DATA REVIEWED: Not Applicable RADIOLOGY DEPARTMENT: CT; Exam(s) Completed: Chest PERIPHERAL IV DATA: Not applicable SIGNED BY: RT Karlene(R) November 27, 2022 1:52 PM documented in this encounter [facility] 11-27-2022 Instructions Linda Jean Baptiste, [employer] AND [employer]AX[employer] INSTRUCTOR.PROJECT FACILITATOR - 11/27/2022 1:[address] Lung Screen Results The CT scan that you will have done today will let us know if you have any nodules (small spots) in your lungs that are suspicious for cancer. Around of the patients who have this scan done will be found to have at least one nodule. Most nodules are benign (not cancer), and of no harm to you at all. A specialist will make a scientific evaluation about whether or not a nodule is worrisome based on its size and shape. The radiologist who will read your scan will put it into one of four categories: Category 1 - This means that you do not have any nodules of concern in your lungs at this time. It is advised that a CT lung screen should be repeated in one year. Category 2 - This means that you have one or more extremely small nodules present in your lungs. These nodules are so small that there is a very low chance, less than 1% risk, that the nodule/s present are cancerous, so the recommendation is to follow with a CT lung screen in one year. Category 3 - This means that there is a nodule/s present which are a little bit larger or have certain features that would warrant an additional CT scan in 6 months. Though we follow these nodules more closely than the first two categories, there is still only a 1-2% chance that they are cancerous. Category 4 - This means that there is a larger nodule or other finding that requires special medical attention. These results will be discussed with you in detail with plans for further testing based on the specific findings. We will communicate the results to you however you would like - [facility], by phone, face to face visit. We will also send them in a letter to you. If you choose to receive the results through [employer] we will also call you with any Category 3 or 4 finding. Lung Cancer Screening hotline: [phone] Specialist Provider: Linda Jean Baptiste APRN.PROJECT FACILITATOR [phone] documented in this encounter [facility] 11-27-2022 History of Present illness Narrative Images from the original note were not included. LUNG SCREENING VISIT PRIMARY CARE PHYSICIAN: Richy Emerson MD Visit Delivery: In Person Patient Visit Type: Established Ex-smoker Exam Type: annual LDCT Number of Pack Years: 84 Number of Years since Quit: 14 The patient's smoking history is similar to prior year shared decision visit. Results will be communicated via letter or electronic record. REQUESTER: Linda Jean Baptiste CNP HISTORY OF PRESENT ILLNESS: Amy Sun is a 72 year old former smoker who presents for lung screening. Respiratory symptoms include: SOB: No Chest tightness: No Coughing: Yes: With mucus Yellow and White Hemoptysis: No Wheezing: No Fever/Chills: No Recent Respiratory Infection: No Unintentional weight loss: No Last 6 Encounter Wt Readings: Date: Wt: 06/10/2022 92 kg (202 lb 14.4 oz) 12/13/2021 92.4 kg (203 lb 11.2 oz) 11/12/2021 95 kg (209 lb 6.4 oz) 05/15/2021 95.5 kg (210 lb 8 oz) 02/05/2021 102.7 kg (226 lb 6.4 oz) 11/23/2020 102.6 kg (226 lb 1.6 oz) ECOG PERFORMANCE STATUS: 1- Restricted in physically strenuous activity. Carries out light duty. Modified Medical Research [place] Dyspnea Scale (MMRC) I only get breathless with strenous exercise 0 Lung Cancer Risk Factors: 1.Tobacco Use: Start Age 16, Quit Age 58 , Average packs per day 2, Pack Years 84. 2. Passive Smoke Exposure: No. 3. Personal hx of malignancy: Yes, other tongue . 4. 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 5. Race: White. 6. Education:Some college 7. BMI:There is no height or weight on file to calculate BMI. 8. COPD: No 9. Pneumonia in the past 5 years: Yes 10. Is there a history of lung cancer in a first degree relative? No. 11. Is there a history of lung cancer in a non first degree relative? No 12. Is there a history of any other cancer in a first degree relative? No. 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 Surg/ Femto/ Restor FAMILY HISTORY Problem Relation Age of Onset Cataract Mother other (Dementia) Mother Coronary Artery Disease Father Heart Father Cataract Father Glaucoma Father Detached Retina No Family History Macular Degen No Family History Blindness No Family History Amblyopia No Family History Strabismus No Family History aspirin, enteric coated 81 mg EC tablet Take 81 mg by mouth once daily. (Patient not taking: No sig reported) AVODART 0.5 mg capsule Take 0.5 mg by mouth once daily. (Patient not taking: Reported on 06/10/2022) CRESTOR 5 mg tablet Take 5 mg by mouth once daily. (Patient not taking: Reported on 06/10/2022) FAMOTIDINE 40 mg tablet Take 40 mg by mouth once daily. fexofenadine HCl (NAKITA ALLERGY ORAL) Take by mouth. NEXIUM 40 mg capsule Take 40 mg by mouth once daily. (Patient not taking: No sig reported) omeprazole (PRILOSEC) 20 mg capsule omeprazole 20 mg capsule,delayed release (Patient not taking: No sig reported) omeprazole 20 mg capsule Take 20 mg by mouth once daily. (Patient not taking: No sig reported) pantoprazole DR (PROTONIX) 40 mg tablet propylene glycol/peg 400 (BLINK TEARS LUBRICATING) Eye Drops Use 1 Drop in both eyes as needed. (Patient not taking: Reported on 06/10/2022) testosterone (ANDROGEL) 50 mg/5 g (1%) gel Apply 0.5 Tubes as directed once daily. traMADol (ULTRAM) 50 mg tablet Take 1 tablet by mouth twice daily. TRIBENZOR 40-5-25 mg tab Take 1 tablet by mouth once daily. (Patient not taking: Reported on 12/13/2021) valsartan (DIOVAN) 320 mg tablet Take 160 mg by mouth once daily. zoster RZV vaccine (SHINGRIX) 50 mcg/0.5 mL injection Shingrix (PF) 50 mcg/0.5 mL intramuscular suspension, kit (Patient not taking: Reported on 06/10/2022) ALLERGIES No Known Allergies The medications and allergies were reviewed and reconciled for this patient and deemed current. Health Maintenance Immunization History Administered Date(s) Administered COVID-19 original vaccine, full dose, monovalent (MODERNA) 12/24/2020 Prior Imaging: Last CT/CTA Chest/Lungs CT LUNG SCREEN WO IVCON Collected: 11/27/2022 1:05 PM (In process) Last CT Chest - Impression Only No resulted procedures found. Last XR Chest - Impression Only No resulted procedures found. Pulmonary Function Testing: No textual results found for the specified procedure(s). PHYSICAL EXAM: Deferred BP 117/70 Pulse (!) 59 Temp 36.8 C (98.2 F) (Oral) Resp 16 Ht 188 cm (6' 2.02) Wt 84.6 kg (186 lb 8 oz) SpO2 90% BMI 23.93 kg/m ASSESSMENT and RECOMMENDATIONS: 1. Screening for lung cancer: Six year risk for lung cancer: 6.7% Source: I & Combine I have determined that the patient is eligible for a low dose CT based on age, absence of signs or symptoms of lung cancer, and total pack years: Yes. The patient and I engaged in shared decision making, including the use of one or more decision aids, to include benefits, harms, follow-up diagnostic testing, over-diagnosis, false positive rate, and total radiation exposure. The patient understands and feels comfortable with it: Yes. The patient was counseled on the importance of adherence to annual LDCT lung cancer screening, impact of comorbidities and ability or willingness to undergo diagnosis and treatment. The patient understands and feels comfortable with it:Yes. 2. Nicotine dependence: The patient was counseled on the importance of maintaining cigarette smoking abstinence - The patient is committed to remaining abstinent from tobacco. Linda Jean Baptiste APRN.PROJECT FACILITATOR NPI #: November [id number], [id number] 1:10 PM documented in this encounter [facility] 10-09-2022 History of Present illness Narrative Pt hct is 44.7 today. Pt does not meet parameters of 49 or higher. NO Phlebotomy today. Landen Bowling RN documented in this encounter [facility] 08-29-2022 History of Present illness Narrative [facility] OUTPATIENT REHABILITATION DAILY TREATMENT NOTE Today's Date 08/29/2022 Patient Name: Amy Sun Date of : 1950 Current Visit #: 4 Authorized Visits: [id number] Case Name: ST-Dysphagia History: Pre-Treatment Pain Scale: 0 Symptoms: stabilized Functional Diagnosis: 1. Oropharyngeal dysphagia Clinical Information: Subjective: Patient reports that medication for mucus has helped with swallowing. Patient reports intermittent completion of exercises and with decrease in coughing at meals. Objective Treatments: Speech Exercises - 08/29/[address] Treat Swallow/ Oral Function Complex Intervention Pharyngeal/laryngeal exercises Parameters Reviewed swallowing exercises. Patient reports completing exercises intermittently at home. Patient completed 10 repetitions of the effortful swallow independently. Patient completed 20 repetitions (2 sets of 10) of shlomo maneuver independently. Reviewed meli maneuver; patient completed 10 repetitions with independence. Patient completed 3 repetititons of CTAR isotonic exercise and 30 repetitions of CTAR isokinetic exercise. Patient continues to chew gum throughout session to aid in moistening mouth. Patient asking about spontaenous noise coming from throat. Discussed possibility of gaping cricopharyngeus contributing to this. Time 25 Add more exercises? Yes ST Treat Swallow/ Oral Function Complex Intervention Swallowing strategies Parameters Patient reports use of chin tuck with effortful swallow to assist with swallowing liquids and solids. Patient reports less coughing during meals. Time 5 Speech Treatment Times Oral Function Complex 30 Direct Treatment Time 30 Goals: Speech Therapy: Swallowing: LTG: Patient will utilize designated swallow strategies during consumption of least restrictive diet with pulmonary compromise by 11/07/2022. ST. Patient to demonstrate appropriate use of designated strategies and precautions to compensate for identified deficits. 2. Patient to improve laryngeal elevation/strength/movement and pharyngeal constriction to facilitate increased oropharyngeal transfer and bolus control via therapeutic exercises and EMST if medically cleared. 3. Patient will be educated to HEP including (exercises and swallow strategies) and demonstrated understanding via verbal response and/or demonstration. Patient Education: Verbal HEP with patient verbalized understanding. Post-Treatment Pain Scale: 0 Assessment: Patient had an expected response to treatment. Skilled Intervention demonstrated by modifications of treatment per exercise log including assessment of patient's response and modalities as indicated and safety interventions per exercise log. Progress towards goals as expected. Plan for this Visit: Discharge [phone] documented in this encounter [facility] 08-22-2022 History of Present illness Narrative [facility] OUTPATIENT REHABILITATION DAILY TREATMENT NOTE Today's Date 08/22/2022 Patient Name: Amy Sun Date of : 1950 Current Visit #: 3 Time: 14:45-15:23 (38 minutes) Authorized Visits: [id number] Case Name: ST-Dysphagia History: Pre-Treatment Pain Scale: 0 Symptoms: stabilized Functional Diagnosis: 1. Oropharyngeal dysphagia Clinical Information: Subjective: The patient arrived on time. Patient was pleasant and cooperative throughout the session. No medical changes reported. Objective Patient reported that he has been working on his exercises, however, has not been doing them everyday. Patient does notice an improvement in his swallowing since initiating exercises. Treatments: Speech Exercises - 08/22/[address] Treat Swallow/ Oral Function Complex Intervention Pharyngeal/laryngeal exercises Parameters Reviewed swallowing exercises. Patient reports completion of effortful swallow consistently at home. Patient completed 20 repetitions (2 sets of 10) of shlomo maneuver with set up cues. Reviewed meli maneuver; patient completed x20 (2 sets of 10) with min cues. Patient completed 3 repetititons of CTAR isotonic exercise and 30 repetitions of CTAR isokinetic exercise. Of note, patient chewing gum throughout session to aid in moistening mouth. Patient also making spontaneous noise throughout session with attempt at initiation of swallow - patient reports this happends often and he is unable to control it. Add more exercises? Yes SOFTWARE APPLICATION TESTER reviewed importance of patient completing HEP daily and ideally 2x per day. Goals: Speech Therapy: Swallowing: LTG: Patient will utilize designated swallow strategies during consumption of least restrictive diet with pulmonary compromise by 11/07/2022. ST. Patient to demonstrate appropriate use of designated strategies and precautions to compensate for identified deficits. 2. Patient to improve laryngeal elevation/strength/movement and pharyngeal constriction to facilitate increased oropharyngeal transfer and bolus control via therapeutic exercises and EMST if medically cleared. 3. Patient will be educated to HEP including (exercises and swallow strategies) and demonstrated understanding via verbal response and/or demonstration. Patient Education: Verbal HEP and Diagnosis and recovery specific education with patient verbalized understanding. Post-Treatment Pain Scale: 0 Assessment: Patient had an expected response to treatment. Skilled Intervention demonstrated by modifications of treatment per exercise log including decreased cueing, assessment of patient's response, and modalities as indicated. Progress towards goals as expected. Plan for Next Visit: Treatment Visit with focus on dysphagia exercises Maral Lockett, [employer] STATE LICENSE, [id number] documented in this encounter [facility] 08-19-2022 History of Present illness Narrative [facility] [address] [facility] [place] [address] [facility] [id number] Dept: [phone] MD Amy Joyce 72 y.o. male Patient presents with a chief complaint of 1 mo fu swallow study review (Est pt/) Temp 97.1 F (36.2 C) Ht 6' 1 Wt 87 kg (191 lb 14.4 oz) BMI 25.32 kg/m History of Presenting Illness: The patient/caregiver reports a history of complaint with the following features: He reports that he has had a very good response to the salivary stimulant with improved oral dryness. He also reports a very successful response to his headaches with treatment given at his last visit. He reports less choking with chin tuck and is choking much less, but still is having trouble with solids foods also this is also improved. Review of systems covering 10 systems is reviewed and pertinent positives and negatives are noted as above. Past Medical History: Diagnosis Date Arthritis Benign prostatic hyperplasia Cancer (HCC) 2008 Tongue Chronic kidney disease (CKD) stage G1/A2, glomerular filtration rate (GFR) equal to or greater than 90 mL/min/1.73 square meter and albuminuria creatinine ratio between 30-299 mg/g ED (erectile dysfunction) Edema leg bilateral GERD (gastroesophageal reflux disease) Hepatic steatosis Hyperlipidemia Hypertension Insomnia Prediabetes Current Outpatient Medications: dutasteride (AVODART) 0.5 mg capsule, dutasteride 0.5 mg capsule, Disp: , Rfl: esomeprazole (NEXIUM) 40 MG capsule, Take 1 (one) capsule (40 mg total) by mouth every morning before breakfast ., Disp: , Rfl: [id number]-[id number] (Tribenzor) 40-5-25 mg Tab, Take 1 tablet by mouth daily ., Disp: , Rfl: omeprazole (PRILOSEC) 20 MG capsule, Take 1 (one) capsule (20 mg total) by mouth daily ., Disp: , Rfl: pilocarpine (SALAGEN) 5 MG tablet, Take 1 (one) tablet (5 mg total) by mouth 3 (three) times a day ., Disp: 90 tablet, Rfl: 11 rosuvastatin (CRESTOR) 5 MG tablet, Take 1 (one) tablet (5 mg total) by mouth daily ., Disp: , Rfl: SUMAtriptan (IMITREX) 50 MG tablet, Take 1 (one) tablet (50 mg total) by mouth every 2 (two) hours as needed for migraine Max of 200 mg in 24hrs, do not treat more than 3 times a week ., Disp: 10 tablet, Rfl: 0 testosterone (ANDROGEL) 1 % (50 mg/5 gram) GlPk, Place 0.05 g on the skin daily ., Disp: , Rfl: traMADoL (ULTRAM) 50 mg tablet, Take 1 (one) tablet (50 mg total) by mouth every 4 (four) hours as needed for pain ., Disp: , Rfl: valsartan (DIOVAN) 160 MG tablet, Take 1 (one) tablet (160 mg total) by mouth daily ., Disp: , Rfl: albuterol 90 mcg/actuation inhaler, Inhale 2 (two) puffs every 4 (four) hours as needed . (Patient not taking: Reported on 08/19/2022 .), Disp: 6.7 g, Rfl: 0 No Known Allergies Past Surgical History: Procedure Laterality Date LAPAROSCOPIC INGUINAL HERNIA REPAIR [address] Holder for tongue cancer VASECTOMY Social History Socioeconomic History Marital status: Tobacco Use Smoking status: Former Smokeless tobacco: Never Vaping Use Vaping Use: Never used Substance and Sexual Activity Alcohol use: Not Currently Drug use: Not Currently Family History Problem Relation Age of Onset Coronary artery disease Father Coronary artery disease Brother PHYSICAL EXAM: The patient was examined today 08/19/2022 with findings as follows: CONSTITUTIONAL: General Appearance: well-appearing, nontoxic, alert, no acute distress Communication: understanding at normal conversational tones, normal voicing, speech intelligible HEAD/FACE: Head: atraumatic, normocephalic, no lesions Facial Inspection: no lesions, healthy skin Facial Strength: motor strength normal, symmetric strength, symmetric movement Sinuses: no sinus tenderness Salivary Glands: no enlargements of parotid glands, no tenderness of parotid glands, no masses of parotid glands, clear salivary flow on palpation from Stensen's ducts, no duct stones of Stensen's duct, no enlargement of submandibular glands, no tenderness of submandibular glands, no masses of submandibular glands, clear salivary flow from Amadou's ducts, no stones of Amadou's ducts Temporomandibular Joint: no crepitus with motion, no tenderness on palpation, no trismus, motion symmetric EYES: Pupils: PERRLA, extra-ocular movements intact, no nystagmus, sclera white, no redness of eyes, no watering of eyes EARS: Bilateral External Ears: no pits, no tags Right External Ear: normally formed, no lesions, no mastoid tenderness Left External Ear: normally formed, no lesions, no mastoid tenderness Right External Auditory Canal: normal, healthy skin, no obstructing cerumen, no discharge Left External Auditory Canal: normal, healthy skin, no obstructing cerumen, no discharge Right Tympanic Membrane: normal landmarks, translucent, mobile to pneumatic otoscopy, no perforation Left Tympanic Membrane: normal landmarks, translucent, mobile to pneumatic otoscopy, no perforation Hearing: intact to spoken voice NOSE: Nasal Skin: no lesions, no lacerations, no scars Nasal Dorsum: symmetric with no visible or palpable deformities Nasal Tip: normal symmetric nasal tip, normal nasal valves Nasal Mucosa: normal, pink and moist Septum: not markedly deformed, midline, no exposed vessels, no bleeding, no septal granuloma Turbinates: normal size and conformation Nasopharynx: normal ORAL CAVITY/MOUTH: Lips, teeth, gums: normal lips, normal gums, dentition intact, no dental pain on palpation Oral Mucosa: normal, moist, no lesions Palate: normal hard palate, normal soft palate, symmetric palatal elevation Floor of Mouth: normal floor of mouth Tongue: normal tongue, no lesions, no edema, no masses, normal mucosa, mobile Tonsils: absent Posterior pharynx: normal HYPOPHARYNX/LARYNX: Hypopharynx: normal hypopharynx, normal tongue base, normal pyriform sinus with salivary pooling, normal vallecula with salivary pooling Larynx: normal epiglottis, normal false vocal cords, normal true vocal cords, normal glottic mobility, no arytenoid edema, no post-cricoid edema, no subglottic stenosis, gaping cricopharyngeus NECK: Neck: no masses, trachea midline, normal range of motion, no cysts or pits, no tenderness to palpation Thyroid: normal thyroid, no enlargement, no tenderness, no nodules LYMPH NODES: Cervical: no palpable lymph node enlargement RESPIRATORY: Inspection/Auscultation: good air movement, chest expands symmetrically, normal breath sounds, no wheezing, no stridor SKIN: General Appearance: no lesions, warm and dry, normal turgor, no bruising NEUROLOGICAL SYSTEM: Orientation: oriented to time, oriented to place, oriented to person Cranial Nerves: Cranial Nerves II-XII intact, normal facial movement PSYCHIATRIC: Mood and affect: normal mood, normal affect Assessment and Plan: Overall, he reports a very good response to measures started at his last visit. His barium swallow report and speech therapy notes are review with impairment noted and strategies initiated. I have encouraged him to continue with therapy and to understand that improvement in strength of swallow can take time. 1. Pharyngoesophageal dysphagia 2. History of tongue cancer Return in about 6 months (around 02/19/2023). The patient and/or caregiver is to notify the office if no improvement or worsening of symptoms is noted prior to the scheduled follow-up for sooner evaluation. The patient and/or caregiver is able to state an understanding of these recommendations and is agreeable to the treatment plan. --Jim Holder MD on 08/19/2022 at 11:38 AM An electronic signature was used to authenticate this note. Review of Systems Constitutional: Negative. Negative for appetite change. HENT: Negative. Eyes: Negative. Respiratory: Positive for cough. Cardiovascular: Negative. Gastrointestinal: Negative. Endocrine: Negative. Genitourinary: Negative. Musculoskeletal: Positive for back pain. Skin: Negative. Allergic/Immunologic: Negative. Neurological: Positive for headaches. Hematological: Negative. Psychiatric/Behavioral: Negative. documented in this encounter [facility] 07-23-2022 History of Present illness Narrative [facility] [address] [facility] [address] [facility] [id number] Dept: [phone] MD Amy Joyce 72 y.o. male Patient presents with a chief complaint of No chief complaint on file. Temp 99 F (37.2 C) Ht 6' 1 Wt 86.2 kg (190 lb) BMI 25.07 kg/m History of Presenting Illness: The patient/caregiver reports a history of complaint with the following features: He presents with ongoing dysphagia complaints. He reports that he is having a lot of dry secretions, resulting in pill dysphagia and intolerance of solids. He has had a 60 lb weight los in the last year. This was in part brought on by a pneumonia episode and COVID. He has not had any swallow evaluations. He also reports that he is having daily diffuse headaches when he wakes. These resole if he closes his eyes and sleeps a while. This responds well to Excedrin, but he is not supposed to use NSAID due to his bleeding history. Review of systems covering 10 systems is reviewed and pertinent positives and negatives are noted as above. Past Medical History: Diagnosis Date Cancer (HCC) GERD (gastroesophageal reflux disease) Hyperlipidemia Hypertension Current Outpatient Medications: dutasteride (AVODART) 0.5 mg capsule, dutasteride 0.5 mg capsule, Disp: , Rfl: youwllkjmw-opQGCIZrip-vzbd (Tribenzor) 40-5-25 mg Tab, Take 1 tablet by mouth daily ., Disp: , Rfl: rosuvastatin (CRESTOR) 5 MG tablet, Take 1 (one) tablet (5 mg total) by mouth daily ., Disp: , Rfl: testosterone (ANDROGEL) 1 % (50 mg/5 gram) GlPk, Place 0.05 g on the skin daily ., Disp: , Rfl: traMADoL (ULTRAM) 50 mg tablet, Take 1 (one) tablet (50 mg total) by mouth every 4 (four) hours as needed for pain ., Disp: , Rfl: valsartan (DIOVAN) 160 MG tablet, Take 1 (one) tablet (160 mg total) by mouth daily ., Disp: , Rfl: albuterol 90 mcg/actuation inhaler, Inhale 2 (two) puffs every 4 (four) hours as needed ., Disp: 6.7 g, Rfl: 0 esomeprazole (NEXIUM) 40 MG capsule, Take 1 (one) capsule (40 mg total) by mouth every morning before breakfast ., Disp: , Rfl: omeprazole (PRILOSEC) 20 MG capsule, Take 1 (one) capsule (20 mg total) by mouth daily ., Disp: , Rfl: pilocarpine (SALAGEN) 5 MG tablet, Take 1 (one) tablet (5 mg total) by mouth 3 (three) times a day ., Disp: 90 tablet, Rfl: 11 SUMAtriptan (IMITREX) 50 MG tablet, Take 1 (one) tablet (50 mg total) by mouth every 2 (two) hours as needed for migraine Max of 200 mg in 24hrs, do not treat more than 3 times a week ., Disp: 10 tablet, Rfl: 0 No Known Allergies Past Surgical History: Procedure Laterality Date NECK SURGERY 2008 Dr. Holder for tongue cancer Social History Socioeconomic History Marital status: Tobacco Use Smoking status: Former Smokeless tobacco: Never Vaping Use Vaping Use: Never used Substance and Sexual Activity Alcohol use: Not Currently Drug use: Not Currently History reviewed. No pertinent family history. PHYSICAL EXAM: The patient was examined today 07/23/2022 with findings as follows: CONSTITUTIONAL: General Appearance: well-appearing, nontoxic, alert, no acute distress Communication: understanding at normal conversational tones, normal voicing, speech intelligible HEAD/FACE: Head: atraumatic, normocephalic, no lesions Facial Inspection: no lesions, healthy skin Facial Strength: motor strength normal, symmetric strength, symmetric movement Sinuses: no sinus tenderness Salivary Glands: no enlargements of parotid glands, no tenderness of parotid glands, no masses of parotid glands, clear salivary flow on palpation from Stensen's ducts, no duct stones of Stensen's duct, no enlargement of submandibular glands, no tenderness of submandibular glands, no masses of submandibular glands, clear salivary flow from Post's ducts, no stones of Amadou's ducts Temporomandibular Joint: no crepitus with motion, no tenderness on palpation, no trismus, motion symmetric EYES: Pupils: PERRLA, extra-ocular movements intact, no nystagmus, sclera white, no redness of eyes, no watering of eyes EARS: Bilateral External Ears: no pits, no tags Right External Ear: normally formed, no lesions, no mastoid tenderness Left External Ear: normally formed, no lesions, no mastoid tenderness Right External Auditory Canal: normal, healthy skin, no obstructing cerumen, no discharge Left External Auditory Canal: normal, healthy skin, no obstructing cerumen, no discharge Right Tympanic Membrane: normal landmarks, translucent, mobile to pneumatic otoscopy, no perforation Left Tympanic Membrane: normal landmarks, translucent, mobile to pneumatic otoscopy, no perforation Hearing: intact to spoken voice NOSE: Nasal Skin: no lesions, no lacerations, no scars Nasal Dorsum: symmetric with no visible or palpable deformities Nasal Tip: normal symmetric nasal tip, normal nasal valves Nasal Mucosa: normal, pink and moist Septum: not markedly deformed, midline, no exposed vessels, no bleeding, no septal granuloma Turbinates: normal size and conformation Nasopharynx: normal ORAL CAVITY/MOUTH: Lips, teeth, gums: normal lips, normal gums, dentition intact, no dental pain on palpation Oral Mucosa: normal, dry, no lesions Palate: normal hard palate, normal soft palate, symmetric palatal elevation Floor of Mouth: normal floor of mouth Tongue: normal tongue, no lesions, no edema, no masses, normal mucosa, mobile Tonsils: absent Posterior pharynx: normal HYPOPHARYNX/LARYNX: Hypopharynx: normal hypopharynx, normal tongue base, normal pyriform sinus with salivary pooling, normal vallecula with salivary pooling Larynx: normal epiglottis, normal false vocal cords, normal true vocal cords, normal glottic mobility, no arytenoid edema, no post-cricoid edema, no subglottic stenosis, gaping cricopharyngeus NECK: Neck: no masses, trachea midline, normal range of motion, no cysts or pits, no tenderness to palpation Thyroid: normal thyroid, no enlargement, no tenderness, no nodules LYMPH NODES: Cervical: no palpable lymph node enlargement RESPIRATORY: Inspection/Auscultation: good air movement, chest expands symmetrically, normal breath sounds, no wheezing, no stridor SKIN: General Appearance: no lesions, warm and dry, normal turgor, no bruising NEUROLOGICAL SYSTEM: Orientation: oriented to time, oriented to place, oriented to person Cranial Nerves: Cranial Nerves II-XII intact, normal facial movement PSYCHIATRIC: Mood and affect: normal mood, normal affect FIBEROPTIC NASOPHARYNOGLARYNGOSCOPY NOTE ([id number]) PROCEDURE PERFORMED BY: Jim Holder MD PROCEDURE DATE: 07/23/2022 With the patient and/or caregiver's consent, the patient is positioned in the exam chair. The nasal cavity is then prepared with local anesthetic/decongestant of 4% Lidocaine and 0.05% oxymetazoline. Using a flexible endoscope the nasal cavity beginning on the right side is entered. There is normal moist nasal septal mucosa. The nasal septum is midline. The inferior turbinate is normal. The middle turbinate is normal. The ethmoid and frontal nasal recesses are intact and patent. The sphenoid sinus ostea is intact and patent. The maxillary sinus ostia is intact and patent The endoscope is then withdrawn and the left side is entered. The inferior turbinate is normal. The middle turbinate is normal. The ethmoid and frontal nasal recesses are intact and patent. The sphenoid sinus ostea is intact and patent. The maxillary sinus ostia is intact and patent Examination of nasopharynx shows normal adenoid and intact and patent eustachian tube orifices. Velopharyngeal closure is intact. Examination of the pharynx reveals the lateral and posterior pharyngeal wall mucosa is dry. Tonsils are absent. The tongue base is normal. Examination of the hypopharynx, vallecula, and pyriform sinus reveals normal and with salivary pooling. The epiglottis is normal. Examination of the vocal folds reveals normal mucosal and mobility bilaterally. The arytenoid and post-cricoid mucosa is normal. The visualized portions of the subglottis is normal. This completed the procedure with the patient having tolerated the procedure well. Assessment and Plan: He presents with multiple complaints today. Firstly, he describes a large weight loss with a history of cancer noted. I see no signs of recurrent head and neck cancer. He does have a significant xerostomia and salivary secretions with a history of pneumonia. This is concerning for aspiration and swallow studies are advised. He has a gaping cricopharyngeus and this makes dilation of unlikely benefit and focus on bolus management to reduce aspiration risk is paramount. The rationale for any prescribed radiographic or endoscopic evaluation, speech therapy evaluation, or other intervention is discussed. The patient and/or caregiver is advised on the risks of dysphagia to include but not limited to potential entry of food into the lungs with impairment of breathing and increased risk of pneumonia, nutritional deficit from inadequate caloric intake, weight loss, fatigue, poor wound healing, and exacerbation of other chronic disease processes. The symptom management of dysphagia specific to the patient's exam findings and complaints such as the avoidance of problem foods, modification of diet, and the practice of taking in small quantities of foods or thickening of liquids, alternating solids and liquids, the use of carbonation and temperature for improved sensory input to reduce aspiration risk is discussed. The patient and/or caregiver is able to state an understanding of these recommendations and is agreeable to the treatment plan. Finally, he is having bothersome daily headaches and migraine treatment is offered. The patient and/or caregiver is advised on the nature and management of migraine. We have discussed potential dietary triggers of excess caffeine intake, wine, beer, and other alcohol, fermented meats and cheeses, and other foods that involve fermentation in their production and the benefits of avoidance of these foods. The use of a daily magnesium supplementation of 400 mg of magnesium oxide as a preventative treatment is recommended. Agents to stop a migraine once is has started, such as the [id number] agent of Excedrin migraine, or prescription medications and their strategies of use early in the onset of the migraine, but not more than three times weekly is discussed. Referral to neurology for further consultation if symptoms persist despite these treatment is also discussed. The patient and/or caregiver is able to state and understanding of these recommendations and is agreeable to the treatment plan. 1. 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 Pharyngoesophageal dysphagia Ambulatory Ref to [facility] (PT/OT[facility]ST) XR Modifed Barium Swallow 4. History of tongue cancer Return in about 1 month (around 08/22/2022). The patient and/or caregiver is to notify the office if no improvement or worsening of symptoms is noted prior to the scheduled follow-up for sooner evaluation. The patient and/or caregiver is able to state an understanding of these recommendations and is agreeable to the treatment plan. --Jim Holder MD on 07/23/2022 at 4:04 PM An electronic signature was used to authenticate this note. Review of Systems Constitutional: Negative. HENT: Positive for hearing loss, mouth sores, postnasal drip, rhinorrhea, sinus pressure, sinus pain, sore throat and trouble swallowing. Eyes: Negative. Respiratory: Positive for cough and choking. Cardiovascular: Negative. Gastrointestinal: Negative. Endocrine: Negative. Genitourinary: Negative. Musculoskeletal: Negative. Skin: Negative. Allergic/Immunologic: Positive for environmental allergies. Neurological: Negative. Hematological: Negative. Psychiatric/Behavioral: Negative. documented in this encounter [facility] 06-10-2022 Miscellaneous Notes Need for new cbc orders for August and Sep, as Dr Richardson's orders will not be valid in the those months. Pramod Arcos RN. documented in this encounter [facility] 06-10-2022 Instructions Tad Madison MD - 06/10/2022 1:53 PM EDT No Phlebotomy today. Phlebotomy with CBC once a month if HCT is 49 or higher. RTC in 6 months with CBCD and CMP prior. documented in this encounter [facility] 06-10-2022 History of Present illness Narrative HISTORY OF PRESENT ILLNESS: Mr. 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 Patient that time was treated with chemoradiation therapy. He completed radiation therapy in February 2009. He was treated on the care Dr. Lennon. He was last seen by him on September 2017. He presents for his yearly follow-up. CURRENT STATUS: 6 Months follow up for his secondary polycythemia and his history of tongue cancer. He denied any new tongue mass and currently has not made a follow up yearly appointment with Dr Holder yet this year. He had phlebotomy when he saw Dr Brandon in April 2021 for HCT 56.6. He denied any symptoms of CP or Sob or stroke. Since her last visit, he reports doing well. He had phlebotomies in January 2022 and February 2022 and not in mar or April. He reports that he is still taking his testosterone. He reports that he played golf today. He reports that his is having fun. He reports that he is still golfing. He reports his favorite golf course is in [place] but he likes [place] [employer]. ROS: CONSTITUTIONAL: No fever, chills, night sweats or excessive fatigue. EYES: No significant visual difficulties. No diplopia. No blurred vision HEENT: No sore mouth or throat. No sinus drainage. ENDOCRINE: No hot flashes or night sweats. Denies excessive thirst. HEMATOLOGY/LYMPHOLOGY: No easy bruising or bleeding, The patient denies any tender or palpable lymph nodes. RESPIRATORY: No dyspnea on exertion, chest pain or hemoptysis. CARDIOVASCULAR: Denies palpitations orthopnea. GASTROINTESTINAL: Denies GI bleeding or change in bowel habits. Denies heartburn or abdominal pain. MUSCULOSKELETAL: No joint pain, swelling or redness. No decreased range of motion. SKIN: No chronic rashes, inflammation, ulcerations or skin changes. NEURO: No headaches. Denies extremity weakness or numbness. Normal gait. All other reviewed and negative other than HPI. ECOG PERFORMANCE STATUS: 0- Fully active, able to carry on all pre-disease performance w/o restriction. Social History Tobacco Use Smoking status: Former Packs/day: 2.00 Years: 46.00 Pack years: 92.00 Types: Cigarettes Quit date: 09/19/2008 Years since quittin.7 Smokeless tobacco: Never Tobacco comments: Quit Vaping Use Vaping Use: Never used Substance Use Topics Alcohol use: No Drug use: No FAMILY HISTORY Problem Relation Age of Onset Cataract Mother other (Dementia) Mother Coronary Artery Disease Father Heart Father Cataract Father Glaucoma Father Detached Retina No Family History Macular Degen No Family History Blindness No Family History Amblyopia No Family History Strabismus No Family History PAST MEDICAL HISTORY Diagnosis Date Epiretinal membrane (ERM) of left eye Erythrocytosis 09/15/2014 Hyperlipemia 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) 12/02/2008 Nausea with vomiting PCO (posterior capsular opacification), left Pseudophakia, both eyes Secondary and unspecified malignant neoplasm of lymph nodes of head, face, 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 HEAD (Incl. face): Normocephalic; Atraumatic. EYES: Pupils are reactive. No scleral icterus. HEENT: No oral exudates. NECK: No thyromegaly. No JVD. Evidence of neck surgery. HEMATOLOGY/LYMPHATIC: No petechiae or purpura. No tender or palpable lymph nodes in the cervical, supraclavicular, axillary or inguinal areas. RESPIRATORY: Lungs are clear to auscultation. CARDIOVASCULAR: Regular rate and rhythm. 2 + radial pulse. ABDOMEN: Non-tender, soft, positive bowel sounds. BACK/SPINE: No kyphosis or scoliosis. Non tender to palpation. MUSCULOSKELETAL: No tenderness or swelling, normal range of motion without obvious weakness. EXTREMITIES: No cyanosis, clubbing INTEGUMENTARY: No rashes or masses. NEURO: No sensory or motor deficits, normal cerebellar function, normal gait, cranial nerves intact. PSYCHIATRIC: Pleasant affect. No signs of agitation. LABS: Latest Reference Range & Units 05/07/22 12:59 06/10/22 12:59 Sodium 136 - 144 mmol/L 138 Potassium 3.7 - 5.1 mmol/L 4.4 Chloride 97 - 105 mmol/L 100 CO2 22 - 30 mmol/L 30 BUN 9 - 24 mg/dL 20 Creatinine 0.73 - 1.22 mg/dL 0.99 Glucose 74 - 99 mg/dL 104 (H) Protein, Total 6.3 - 8.0 g/dL 6.8 Calcium 8.5 - 10.2 mg/dL 9.4 Albumin 3.9 - 4.9 g/dL 4.1 Bilirubin, Total 0.2 - 1.3 mg/dL 0.4 Alkaline Phosphatase 38 - 113 U/L 107 ALT 10 - 54 U/L 14 AST 14 - 40 U/L 19 Anion Gap 9 - 18 mmol/L 8 (L) eGFR >=60 mL/min/1.73m 81 WBC 3.70 - 11.00 k/uL 8.80 7.53 RBC 4.20 - 6.00 m/uL 4.97 5.20 Hemoglobin 13.0 - 17.0 g/dL 13.9 14.6 Hematocrit 39.0 - 51.0 % 42.7 45.2 Platelet Count 150 - 400 k/uL 232 260 MCV 80.0 - 100.0 fL 85.9 86.9 MCH 26.0 - 34.0 pg 28.0 28.1 MCHC 30.5 - 36.0 g/dL 32.6 32.3 MPV 9.0 - 12.7 fL 9.7 9.6 RDW-CV 11.5 - 15.0 % 13.0 13.3 DTYPE Auto Auto Neut% % 78.0 75.7 Abs Neut (ANC) 1.45 - 7.50 k/uL 6.86 5.69 Lymph% % 10.3 11.8 Abs Lymph 1.00 - 4.00 k/uL 0.91 (L) 0.89 (L) Gaston% % 7.5 6.2 Abs Gaston <0.87 k/uL 0.66 0.47 Eosin% % 3.3 5.7 Abs Eosin <0.46 k/uL 0.29 0.43 Baso% % 0.7 0.5 Abs Baso <0.11 k/uL 0.06 0.04 Immature Gran % % 0.2 0.1 IMMATURE GRANS (ABS) <0.10 k/uL <0.03 <0.03 NRBC /100 WBC 0.0 0.0 Absolute nRBC <0.01 k/uL <0.01 <0.01 (H): Data is abnormally high (L): Data is abnormally low RADIOLOGY: CT LUNG FOLLOWUP WO IVCON -DATE OF EXAM: May 14 2021 RESULT: Are nodules present? Yes, 1-5 nodules Nodule 1: This solid nodule is located in the right lower lobe on slice number 269 with an average diameter of 5.5 mm (7 mm x 4 mm). New. Nodule 2: This solid nodule is located in the left upper lobe on slice number 32 with an average diameter of 2 mm. Stable Nodule 3: This calcified nodule is located in the left lower lobe on slice number 198 with an average diameter of 3 mm. Stable Nodule 4: This calcified nodule is located in the left upper on slice number 72 with an average diameter of 2 mm. Stable Other lung nodule comments: The new right lower lobe nodule is likely inflammatory/infectious in etiology given waxing and waning nodules in the lower lobes. Interval resolution of clustered right lower lobe nodules with the largest on prior CT image 216 with tiny residual nodules present in the posterior right lower lobe (image 234) and interval resolution of previously seen clustered peribronchial nodules in the left lower lobe on prior CT image 245, consistent with inflammatory/infectious process. A punctate calcified granuloma is also noted at the posterior right lower lobe (image 262). Stable nodular opacities in the left lung apex, likely postinflammatory in nature. Other findings: There is trace amount retained secretion in the trachea and the central airways are otherwise patent without endobronchial lesion. There is biapical pleural-parenchymal scarring. Mild upper lobe predominant centrilobular emphysema with diffuse bronchial wall thickening is noted. No focal consolidation. The imaged thyroid gland is unremarkable. The mediastinal and hilar lymph nodes are stable which are within the range of normal variation without new or progressive thoracic lymphadenopathy. The esophagus is patulous reflecting esophageal dysmotility which places the patient at risk for aspiration. Atherosclerotic calcifications are seen in the thoracic aorta noting borderline diameter of the ascending aorta. The main pulmonary artery is top normal in caliber. The cardiac chambers are normal in size. No distinct coronary artery calcifications. No pericardial effusion or pericardial thickening. The imaged upper abdomen is stable without acute abnormality. Degenerative changes of the thoracic spine. Emphysema: Mild (5-25%), centrilobular, upper lobe Coronary Artery Calcifications: Circumflex none; Left Anterior Descending none; Right Coronary none IMPRESSION: LungRADS category: 3 LungRADS modifier: None LungRADS 0 reason: n/a Recommendations: Followup LDCT in 6 months ASSESSMENT / PLAN: 1. 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 He reports that he is doing well. He reports that he follows with Dr. Holder. 2. Hepatic steatosis 3. 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 I will take a 1 unit today. He will reduce the dose and followup with his fmd. I will recheck his levels one month. 4. Lung cancer screening. He quit smoking in 2008 but prior to that had a 3 ppd for 46 years. He is >55 and less than 78. He has his last screening as and was LRADS category 2. Continue follow up with . Plan: HCT 45.2 today. No Phlebotomy today. Phlebotomy with CBC once a month if HCT is 49 or higher. RTC in 6 months with CBCD and CMP prior. Some Elements Copied from my note previous note. I have updated where appropriate, and all reflect current medical decision making from today, 12/13/21. TAD Madison MD documented in this encounter [facility] 06-05-2022 History of Present illness Narrative ASSESSMENT/PLAN: 1. Epiretinal membrane (ERM) of left eye - ICD9: 362.56, ICD10: H35.372 (primary diagnosis) Stable/observe Patient to follow up with Dr. Martini 2. Vitelliform lesion of macula/both eyes - ICD9: 362.76, ICD10: H35.54 Stable/monitor 3. Pseudophakia of both eyes - ICD9: V43.1, ICD10: Z96.1 Lens position well centered both eyes 4. Essential hypertension - ICD9: 401.9, ICD10: I10 Continue care with primary care physician Naida Phillips MD I have confirmed and edited as necessary the relevant ophthalmic history, review of systems, surgical history, and ophthalmological examination findings as obtained by the ophthalmic technical staff. I have seen and examined Amy Sun. I have discussed the examination findings, diagnosis, and treatment options with Amy Sun and/or his family. I have also reviewed and agree with the assessment and plan as stated above and agree with all its relevant components. I gave the patient the opportunity to ask questions about the findings, diagnosis, and treatment options. documented in this encounter [facility] 04-18-2022 Miscellaneous Notes Patient does not qualify for phlebotomy today as hematocrit is 42.4 today, patient is aware. documented in this encounter [facility] 02-07-2022 History of Present illness Narrative Benign Prostatic Hyperplasia (BPH): He denies decreased stream, denies urgency, and he denies blood in his urine. Current medication/treatments: avodart GERD: He denies heartburn, and he denies regurgitation, while being on his medication. Current medication/treatments: pantoprazole (was previously prescribed elsewhere) Hyperlipidemia: His last lipid profile was done (date) 07/13/21. Current medication/treatments: rosuvastatin. He states: no to medication side effects. He states: no to other medications tried and failed? He would like refills on his testosterone gel, which he uses for testosterone deficiency. Arthritis: Located in his hands and wrists. Current medication/treatments: tramadol Hypertension: He denies chest pain, denies headaches, and he denies dizziness, while being on his medications. He denies checking his BP's at home. Current medication/treatments: valsartan BP Readings from Last 3 Encounters: 02/07/22 104/76 12/04/21 102/62 11/08/21 114/82 30 day supply pantoprazole until [facility] is available. Chief Complaint Patient presents with Benign Prostatic Hyperplasia 6 mo fu Gastroesophageal Reflux Disease 6 mo fu Hyperlipidemia 6 mo fu Arthritis 3 mo fu Hypertension 6 mo fu Benign Prostatic Hyperplasia (BPH): He denies decreased stream, denies urgency, and he denies blood in his urine. Current medication/treatments: avodart GERD: He denies heartburn, and he denies regurgitation, while being on his medication. Current medication/treatments: pantoprazole (was previously prescribed elsewhere) Hyperlipidemia: His last lipid profile was done (date) 07/13/21. Current medication/treatments: rosuvastatin. He states: no to medication side effects. He states: no to other medications tried and failed? He would like refills on his testosterone gel, which he uses for testosterone deficiency. Arthritis: Located in his hands and wrists. Current medication/treatments: tramadol Hypertension: He denies chest pain, denies headaches, and he denies dizziness, while being on his medications. He denies checking his BP's at home. Current medication/treatments: valsartan BP Readings from Last 3 Encounters: 02/07/22 104/76 12/04/21 102/62 11/08/21 114/82 30 day supply pantoprazole until [facility] is available. HPI Hypertension, Blood Pressure Recheck Amy Sun, a 71 y.o. male, is here for recheck on his blood pressure and refills of his medication. He has been compliant with his medication. yes There have been no intolerability issues. yes BP Readings from Last 3 Encounters: 02/07/22 : 104/76 12/04/21 : 102/62 11/08/21 : 114/82 Hyperlipidemia Amy Sun, an 71 y.o. male, is here for refill of his cholesterol medications. He has been compliant with his medicines. yes There have been no intolerances or side effects. yes Lab Results Component Value Date CHOLESTEROL 163 07/13/2021 CHOLESTEROL 157 01/24/2021 CHOLESTEROL 162 08/01/2020 TRIG 216 (H) 07/13/2021 TRIG 102 01/24/2021 TRIG 181 (H) 08/01/2020 HDL 46 07/13/2021 HDL 38 (L) 01/24/2021 HDL 43 08/01/2020 LDLCALC 74 07/13/2021 LDLCALC 99 01/24/2021 LDLCALC 83 08/01/2020 Reflux Amy Sun, an 71 y.o. male, is here for refill on his medication for his gastroesophageal reflux. Since being on the medication his symptoms have Improved. Has had no problems with the medicine. yes He is compliant with taking the medication. yes He has noted no change in stools no blood or melena in the stool. yes BPH Patient is here forRefill his medication. Medications have been effective. He has been compliant. Testosterone deficiency Patient is here for refill on her medication. Medicines have been effective. He has been compliant had no side effects. Joint pains Patient is here for refill of his medication. Medicines have been effective in reducing his symptoms. No Known Allergies Outpatient Medications Prior to Visit Medication Sig Dispense Refill famotidine 40 MG tablet Take 40 mg by mouth daily. Fexofenadine 180 MG tablet Take 180 mg by mouth daily. Multiple Vitamins-Minerals (CENTRUM SILVER 50+MEN PO) Take by mouth. dutasteride (Avodart) 0.5 MG capsule Take 1 capsule by mouth daily. 90 capsule 1 pantoprazole [address] tablet DR Take 1 tablet by mouth daily. 90 tablet 1 rosuvastatin (Crestor) 5 MG tablet Take 1 tablet by mouth daily. 90 tablet 1 Testosterone 50 MG/5GM (1%) Gel gel Place 0.5 Tubes on skin daily. 225 g 1 traMADol 50 MG tablet Take 1 tablet by mouth 3 times daily as needed. 270 tablet 0 valsartan 160 MG tablet Take 1 tablet by mouth daily. 90 tablet 1 No facility-administered medications prior to visit. 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 Chemo/RT with Cisplatin and RT and Ethyol. RT completed 02/28/09. family history includes Coronary Artery Disease in an other family member; Heart Disease - Other in his brother, father, and another family member; No known problems in his mother. reports that he has quit smoking. His smoking use included cigarettes. He has never used smokeless tobacco. He reports that he does not drink alcohol and does not use drugs. Past Surgical History: Procedure Laterality Date NECK SURGERY 2008 for cancer INGUINAL HERNIA REPAIR 1988 VASECTOMY Review of Systems Visit Vitals BP 104/76 Pulse 67 Temp 97.7 F (36.5 C) (Temporal) Resp 18 Ht 1.855 m (6' 1.03) Wt 91.6 kg (202 lb) SpO2 92% BMI 26.63 kg/m Review of Systems Constitutional: Negative for activity change and fatigue. HENT: Negative. Respiratory: Negative for shortness of breath. Cardiovascular: Negative for chest pain. Gastrointestinal: Negative. Negative for abdominal pain and nausea. Heartburn Endocrine: Negative for cold intolerance. Genitourinary: Negative for difficulty urinating and frequency. Musculoskeletal: Positive for arthralgias. Skin: Negative. Neurological: Negative for dizziness, numbness and headaches. Psychiatric/Behavioral: Negative. Negative for dysphoric mood. The patient is not nervous/anxious. Physical Exam Physical Exam Vitals and nursing note reviewed. Constitutional: General: He is not in acute distress. Eyes: Conjunctiva/sclera: Conjunctivae normal. Pupils: Pupils are equal, round, and reactive to light. Neck: Vascular: No carotid bruit. Cardiovascular: Rate and Rhythm: Normal rate and regular rhythm. Pulmonary: Effort: Pulmonary effort is normal. Breath sounds: Normal breath sounds. Skin: General: Skin is warm and dry. Neurological: Mental Status: He is alert and oriented to person, place, and time. Psychiatric: Mood and Affect: Mood normal. Judgment: Judgment normal. Assessment & Plan Problem List Items Addressed This Visit Digestive Gastroesophageal reflux disease without esophagitis Relevant Medications Pantoprazole [address] tablet Pantoprazole [address] tablet Endocrine Testicular hypofunction Relevant Medications Testosterone 50 MG/5GM (1%) Gel gel Other Relevant Orders CBC,PLATELETS TESTOSTERONE Hyperlipidemia Relevant Medications Rosuvastatin (Crestor) 5 MG tablet Other Relevant Orders COMPREHENSIVE METABOLIC PANEL LIPID PANEL W CALCULATED LDL MusculoSkeletal Arthritis Relevant Medications traMADol 50 MG tablet Urinary Benign prostatic hyperplasia with lower urinary tract symptoms Relevant Medications dutasteride (Avodart) 0.5 MG capsule Other Visit Diagnoses Prediabetes - Primary Relevant Orders HEMOGLOBIN A1C Benign hypertension Relevant Medications valsartan 160 MG tablet Richy Emerson MD 02/07/2022, 2:19 PM documented in this encounter [facility] 01-08-2022 Miscellaneous Notes Spoke to pt about upcoming appt, he is agreeable to come at 945am on 01/11 for labs and possible Phlebotomy. Pramod Arcos RN. documented in this encounter [facility] 12-13-2021 Instructions Tad Madison MD - 12/13/2021 11:32 AM EDT Phlebotomy 500 ml today or tomorrow if no beds available today. Phlebotomy with CBC once a month if HCT is 49 or higher. RTC in 6 months with CBCD and CMP prior. documented in this encounter [facility] 12-13-2021 History of Present illness Narrative HISTORY OF PRESENT ILLNESS: Mr. 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 Patient that time was treated with chemoradiation therapy. He completed radiation therapy in February 2009. He was treated on the care Dr. Lennon. He was last seen by him on September 2017. He presents for his yearly follow-up. CURRENT STATUS: 6 Months follow up for his secondary polycythemia and his history of tongue cancer. He denied any new tongue mass and currently has not made a follow up yearly appointment with Dr Holder yet this year. He had phlebotomy when he saw Dr Brandon in April 2021 for HCT 56.6. He denied any symptoms of CP or Sob or stroke. Since her last visit, he reports doing well. He reports that he is still taking his testosterone. He reports that he played golf today. He reports that his is having fun. He reports that he is still golfing. He reports his favorite golf course is in [place]([employer] but he likes [employer]. ROS: CONSTITUTIONAL: No fever, chills, night sweats or excessive fatigue. EYES: No significant visual difficulties. No diplopia. No blurred vision HEENT: No sore mouth or throat. No sinus drainage. ENDOCRINE: No hot flashes or night sweats. Denies excessive thirst. HEMATOLOGY/LYMPHOLOGY: No easy bruising or bleeding, The patient denies any tender or palpable lymph nodes. RESPIRATORY: No dyspnea on exertion, chest pain or hemoptysis. CARDIOVASCULAR: Denies palpitations orthopnea. GASTROINTESTINAL: Denies GI bleeding or change in bowel habits. Denies heartburn or abdominal pain. MUSCULOSKELETAL: No joint pain, swelling or redness. No decreased range of motion. SKIN: No chronic rashes, inflammation, ulcerations or skin changes. NEURO: No headaches. Denies extremity weakness or numbness. Normal gait. All other reviewed and negative other than HPI. ECOG PERFORMANCE STATUS: 0- Fully active, able to carry on all pre-disease performance w/o restriction. Social History Tobacco Use Smoking status: Former Packs/day: 2.00 Years: 46.00 Pack years: 92.00 Types: Cigarettes Quit date: 09/19/2008 Years since quittin.2 Smokeless tobacco: Never Tobacco comments: Quit Vaping Use Vaping Use: Never used Substance Use Topics Alcohol use: No Drug use: No FAMILY HISTORY Problem Relation Age of Onset Cataract Mother other (Dementia) Mother Coronary Artery Disease Father Heart Father Cataract Father Glaucoma Father Detached Retina No Family History Macular Degen No Family History Blindness No Family History Amblyopia No Family History Strabismus No Family History PAST MEDICAL HISTORY Diagnosis Date Epiretinal membrane (ERM) of left eye Erythrocytosis 09/15/2014 Hyperlipemia 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) 12/02/2008 Nausea with vomiting PCO (posterior capsular opacification), left Pseudophakia, both eyes Secondary and unspecified malignant neoplasm of lymph nodes of head, face, and neck 12/02/2008 Vitreous floaters PHYSICAL EXAM: BP 92/46 Pulse 69 Temp (Src) 98.1 (Oral) Resp 20 Wt 203 lb 11.2 oz (92.4kg) SpO2 92% CONSTITUTIONAL: Awake, alert, oriented. HEAD (Incl. face): Normocephalic; Atraumatic. EYES: Pupils are reactive. No scleral icterus. HEENT: No oral exudates. NECK: No thyromegaly. No JVD. Evidence of neck surgery. HEMATOLOGY/LYMPHATIC: No petechiae or purpura. No tender or palpable lymph nodes in the cervical, supraclavicular, axillary or inguinal areas. RESPIRATORY: Lungs are clear to auscultation. CARDIOVASCULAR: Regular rate and rhythm. 2 + radial pulse. ABDOMEN: Non-tender, soft, positive bowel sounds. BACK/SPINE: No kyphosis or scoliosis. Non tender to palpation. MUSCULOSKELETAL: No tenderness or swelling, normal range of motion without obvious weakness. EXTREMITIES: No cyanosis, clubbing INTEGUMENTARY: No rashes or masses. NEURO: No sensory or motor deficits, normal cerebellar function, normal gait, cranial nerves intact. PSYCHIATRIC: Pleasant affect. No signs of agitation. LABS: Latest Reference Range & Units 11/22/21 13:20 Sodium 136 - 144 mmol/L 140 Potassium 3.7 - 5.1 mmol/L 5.3 (H) Chloride 97 - 105 mmol/L 100 CO2 22 - 30 mmol/L 34 (H) BUN 9 - 24 mg/dL 19 Creatinine 0.73 - 1.22 mg/dL 1.02 Glucose 74 - 99 mg/dL 103 (H) Protein, Total 6.3 - 8.0 g/dL 7.4 Calcium 8.5 - 10.2 mg/dL 9.7 Albumin 3.9 - 4.9 g/dL 4.2 Bilirubin, Total 0.2 - 1.3 mg/dL 0.9 Alkaline Phosphatase 38 - 113 U/L 121 (H) ALT 10 - 54 U/L 23 AST 14 - 40 U/L 34 Anion Gap 9 - 18 mmol/L 6 (L) eGFR >=60 mL/min/1.73m 79 Hematocrit 39.0 - 51.0 % 52.2 (H) TSH 0.270 - 4.200 mIU/L 1.360 WBC 3.70 - 11.00 k/uL 7.07 RBC 4.20 - 6.00 m/uL 6.02 (H) Hemoglobin 13.0 - 17.0 g/dL 16.7 Platelet Count 150 - 400 k/uL 269 MCV 80.0 - 100.0 fL 86.7 MCH 26.0 - 34.0 pg 27.7 MCHC 30.5 - 36.0 g/dL 32.0 MPV 9.0 - 12.7 fL 10.4 RDW-CV 11.5 - 15.0 % 13.7 Absolute nRBC <0.01 k/uL <0.01 (H): Data is abnormally high (L): Data is abnormally low RADIOLOGY: CT LUNG FOLLOWUP WO IVCON -DATE OF EXAM: May 14 2021 RESULT: Are nodules present? Yes, 1-5 nodules Nodule 1: This solid nodule is located in the right lower lobe on slice number 269 with an average diameter of 5.5 mm (7 mm x 4 mm). New. Nodule 2: This solid nodule is located in the left upper lobe on slice number 32 with an average diameter of 2 mm. Stable Nodule 3: This calcified nodule is located in the left lower lobe on slice number 198 with an average diameter of 3 mm. Stable Nodule 4: This calcified nodule is located in the left upper on slice number 72 with an average diameter of 2 mm. Stable Other lung nodule comments: The new right lower lobe nodule is likely inflammatory/infectious in etiology given waxing and waning nodules in the lower lobes. Interval resolution of clustered right lower lobe nodules with the largest on prior CT image 216 with tiny residual nodules present in the posterior right lower lobe (image 234) and interval resolution of previously seen clustered peribronchial nodules in the left lower lobe on prior CT image 245, consistent with inflammatory/infectious process. A punctate calcified granuloma is also noted at the posterior right lower lobe (image 262). Stable nodular opacities in the left lung apex, likely postinflammatory in nature. Other findings: There is trace amount retained secretion in the trachea and the central airways are otherwise patent without endobronchial lesion. There is biapical pleural-parenchymal scarring. Mild upper lobe predominant centrilobular emphysema with diffuse bronchial wall thickening is noted. No focal consolidation. The imaged thyroid gland is unremarkable. The mediastinal and hilar lymph nodes are stable which are within the range of normal variation without new or progressive thoracic lymphadenopathy. The esophagus is patulous reflecting esophageal dysmotility which places the patient at risk for aspiration. Atherosclerotic calcifications are seen in the thoracic aorta noting borderline diameter of the ascending aorta. The main pulmonary artery is top normal in caliber. The cardiac chambers are normal in size. No distinct coronary artery calcifications. No pericardial effusion or pericardial thickening. The imaged upper abdomen is stable without acute abnormality. Degenerative changes of the thoracic spine. Emphysema: Mild (5-25%), centrilobular, upper lobe Coronary Artery Calcifications: Circumflex none; Left Anterior Descending none; Right Coronary none IMPRESSION: LungRADS category: 3 LungRADS modifier: None LungRADS 0 reason: n/a Recommendations: Followup LDCT in 6 months ASSESSMENT / PLAN: 1. 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 He reports that he is doing well. He reports that he follows with Dr. Holder. 2. Hepatic steatosis 3. 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 I will take a 1 unit today. He will reduce the dose and followup with his fmd. I will recheck his levels one month. 4. Lung cancer screening. He quit smoking in 2008 but prior to that had a 3 ppd for 46 years. He is >55 and less than 78. He has his last screening as and was LRADS category 2. Continue follow up with . Plan: Phlebotomy 500 ml today or tomorrow if no beds available today. Phlebotomy with CBC once a month if HCT is 49 or higher. RTC in 6 months with CBCD and CMP prior. Some Elements Copied from my note previous note. I have updated where appropriate, and all reflect current medical decision making from today, 12/13/21. TAD Madison MD documented in this encounter [facility] 12-04-2021 History of Present illness Narrative Patient here today with complaints of coughing, chills, fatigue, poor appetite started last Friday. States he thinks he had pneumonia again but he's feeling somewhat better know. Chief Complaint Patient presents with Cough Patient here today with complaints of coughing, chills, fatigue, poor appetite started last Friday. States he thinks he had pneumonia again but he's feeling somewhat better know. HPI Cough/fever Patient states he started feeling ill about 5 days ago. States that initially he thought he had pneumonia again but now starting to feel slightly better. Had chills and productive cough sinus congestion. No Known Allergies Outpatient Medications Prior to Visit Medication Sig Dispense Refill dutasteride (Avodart) 0.5 MG capsule Take 1 capsule by mouth daily. 90 capsule 1 famotidine 40 MG tablet Take 40 mg by mouth daily. fexofenadine ([facility]) 180 MG tablet Take 180 mg by mouth daily. Multiple Vitamins-Minerals (CENTRUM SILVER 50+MEN PO) Take by mouth. pantoprazole [address] tablet DR Take 1 tablet by mouth daily. 90 tablet 1 rosuvastatin (Crestor) 5 MG tablet Take 1 tablet by mouth daily. 90 tablet 1 Testosterone 50 MG/5GM (1%) Gel gel Place 0.5 Tubes on skin daily. 225 g 1 traMADol 50 MG tablet Take 1 tablet by mouth 3 times daily as needed. 270 tablet 0 valsartan 160 MG tablet Take 1 tablet by mouth daily. 90 tablet 1 No facility-administered medications prior to visit. 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 Chemo/RT with Cisplatin and RT and Ethyol. RT completed 02/28/09. family history includes Coronary Artery Disease in an other family member; Heart Disease - Other in his brother, father, and another family member; No known problems in his mother. reports that he has quit smoking. His smoking use included cigarettes. He has never used smokeless tobacco. He reports that he does not drink alcohol and does not use drugs. Past Surgical History: Procedure Laterality Date NECK SURGERY 2008 for cancer INGUINAL HERNIA REPAIR 1988 VASECTOMY Review of Systems Visit Vitals BP 102/62 Pulse 63 Temp 97.5 F (36.4 C) (Temporal) Resp 20 Ht 1.855 m (6' 1.03) Wt 91 kg (200 lb 9.6 oz) SpO2 90% BMI 26.44 kg/m Review of Systems Constitutional: Positive for chills and fatigue. HENT: Positive for congestion. Negative for sinus pain and sore throat. Respiratory: Positive for cough. Cardiovascular: Negative. Negative for chest pain. Genitourinary: Negative. Neurological: Negative. Psychiatric/Behavioral: Negative. Physical Exam Physical Exam Vitals and nursing note reviewed. Constitutional: General: He is not in acute distress. HENT: Right Ear: A middle ear effusion is present. Left Ear: A middle ear effusion is present. Nose: Mucosal edema and rhinorrhea present. Right Sinus: Maxillary sinus tenderness present. Left Sinus: Maxillary sinus tenderness present. Eyes: Pupils: Pupils are equal, round, and reactive to light. Cardiovascular: Rate and Rhythm: Normal rate and regular rhythm. Pulmonary: Effort: Pulmonary effort is normal. Breath sounds: Wheezing and rales present. Skin: General: Skin is warm and dry. Neurological: Mental Status: He is alert and oriented to person, place, and time. Assessment & Plan Problem List Items Addressed This Visit None Richy Emerson MD 12/04/2021, 4:01 PM documented in this encounter [facility] 11-28-2021 History of Present illness Narrative ASSESSMENT/PLAN: 1. Epiretinal membrane (ERM) of left eye - ICD9: 362.56, ICD10: H35.372 (primary diagnosis) - Monitor with Amsler Grid 2. 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 Vitelliform lesion of macula - ICD9: 362.76, ICD10: H35.54 - Left eye - Monitor 4. Pseudophakia of both eyes - ICD9: V43.1, ICD10: Z96.1 - Intraocular lens in good position, Both eyes 5. Essential hypertension - ICD9: 401.9, ICD10: I10 - Manage care with primary care physician Refer to retina for further evaluation Return in 6 months Naida Phillips MD I have confirmed and edited as necessary the relevant ophthalmic history, review of systems, surgical history, and ophthalmological examination findings as obtained by the ophthalmic technical staff. I have seen and examined Amy Sun. I have discussed the examination findings, diagnosis, and treatment options with Amy Sun and/or his family. I have also reviewed and agree with the assessment and plan as stated above and agree with all its relevant components. I gave the patient the opportunity to ask questions about the findings, diagnosis, and treatment options. documented in this encounter [facility] 11-16-2021 History of Present illness Narrative I called both phone numbers provided from the patient to give lung cancer screening chest CT scan results. Unable to reach patient and left a message for the patient to return my call. Linda Jean Baptiste CNP documented in this encounter [facility] 11-12-2021 Instructions Linda Jean Baptiste APRN.CNP - 11/12/2021 11:[address] Lung Screen Results The CT scan that you will have done today will let us know if you have any nodules (small spots) in your lungs that are suspicious for cancer. Around of the patients who have this scan done will be found to have at least one nodule. Most nodules are benign (not cancer), and of no harm to you at all. A specialist will make a scientific evaluation about whether or not a nodule is worrisome based on its size and shape. The radiologist who will read your scan will put it into one of four categories: Category 1 - This means that you do not have any nodules of concern in your lungs at this time. It is advised that a CT lung screen should be repeated in one year. Category 2 - This means that you have one or more extremely small nodules present in your lungs. These nodules are so small that there is a very low chance, less than 1% risk, that the nodule/s present are cancerous, so the recommendation is to follow with a CT lung screen in one year. Category 3 - This means that there is a nodule/s present which are a little bit larger or have certain features that would warrant an additional CT scan in 6 months. Though we follow these nodules more closely than the first two categories, there is still only a 1-2% chance that they are cancerous. Category 4 - This means that there is a larger nodule or other finding that requires special medical attention. These results will be discussed with you in detail with plans for further testing based on the specific findings. We will communicate the results to you however you would like - [facility], by phone, face to face visit. We will also send them in a letter to you. If you choose to receive the results through [employer] we will also call you with any Category 3 or 4 finding. Lung Cancer Screening hotline: [phone] Specialist Provider: Linda Jean Baptiste APRN.CNP [phone] documented in this encounter [facility] 11-12-2021 History of Present illness Narrative Images from the original note were not included. LUNG SCREENING VISIT PRIMARY CARE PHYSICIAN: Richy Emerson MD Visit Delivery: In Person Patient Visit Type: Established Current or Ex-smoker? Ex Exam Type: follow-up LDCT Number of Pack Years: 84 Number of Years since Quit: 13 The patient's smoking history is similar to prior year shared decision visit. Results will be communicated via letter or electronic record. REQUESTER: The referring provider advised the patient to have screening. HISTORY OF PRESENT ILLNESS: Amy Sun is a 71 year old former smoker who presents for lung screening. Respiratory symptoms include: SOB: No Chest tightness: No Coughing: Yes: With mucus White and Thick Hemoptysis: No Wheezing: No Fever/Chills: No Recent Respiratory Infection: Yes Unintentional weight loss: No Last 6 Encounter Wt Readings: Date: Wt: 05/15/2021 95.5 kg (210 lb 8 oz) 02/05/2021 102.7 kg (226 lb 6.4 oz) 11/23/2020 102.6 kg (226 lb 1.6 oz) 01/07/2020 101.3 kg (223 lb 6.4 oz) 11/25/2019 101.3 kg (223 lb 4.8 oz) 01/05/2019 104.3 kg (230 lb) ECOG PERFORMANCE STATUS: 1- Restricted in physically strenuous activity. Carries out light duty. Modified Medical Research [place] Dyspnea Scale (MMRC) I only get breathless with strenous exercise 0 Lung Cancer Risk Factors: 1.Tobacco Use: Start Age 16, Quit Age 58 , Average packs per day 2, Pack Years 84. 2. Passive Smoke Exposure: No. 3. Personal hx of malignancy: Yes, other tongue . 4. 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 5. Race: White. 6. Education:Some college 7. BMI:There is no height or weight on file to calculate BMI. 8. COPD: No 9. Pneumonia in the past 5 years: Yes 10. Is there a history of lung cancer in a first degree relative? No. 11. Is there a history of lung cancer in a non first degree relative? No 12. Is there a history of any other cancer in a first degree relative? No. 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 Surg/ Femto/ Restor FAMILY HISTORY Problem Relation Age of Onset Cataract Mother other (Dementia) Mother Coronary Artery Disease Father Heart Father Cataract Father Glaucoma Father Detached Retina No Family History Macular Degen No Family History Blindness No Family History Amblyopia No Family History Strabismus No Family History omeprazole (PRILOSEC) 20 mg capsule omeprazole 20 mg capsule,delayed release zoster RZV vaccine (SHINGRIX) 50 mcg/0.5 mL injection Shingrix (PF) 50 mcg/0.5 mL intramuscular suspension, kit valsartan (DIOVAN) 320 mg tablet Take 160 mg by mouth once daily. propylene glycol/peg 400 (BLINK TEARS LUBRICATING) Eye Drops Use 1 Drop in both eyes as needed. traMADol (ULTRAM) 50 mg tablet Take 1 tablet by mouth twice daily. testosterone (ANDROGEL) 50 mg/5 g (1%) gel Apply 0.5 Tubes as directed once daily. TRIBENZOR 40-5-25 mg tab Take 1 tablet by mouth once daily. omeprazole 20 mg capsule Take 20 mg by mouth once daily. AVODART 0.5 mg capsule Take 0.5 mg by mouth once daily. NEXIUM 40 mg capsule Take 40 mg by mouth once daily. FAMOTIDINE 40 mg tablet Take 40 mg by mouth once daily. CRESTOR 5 mg tablet Take 5 mg by mouth once daily. aspirin, enteric coated 81 mg EC tablet Take 81 mg by mouth once daily. (Patient not taking: Reported on 11/12/2021) ALLERGIES No Known Allergies The medications and allergies were reviewed and reconciled for this patient and deemed current. Health Maintenance Immunization History Administered Date(s) Administered COVID-19 original vaccine, full dose, monovalent (MODERNA) 12/24/2020 Colonoscopy: Mammogram: DATA REVIEW I have directly visualized the testing documented: Prior Imaging: CT: Yes 2021 Abnormal. CXR: Yes 2021 Abnormal. PHYSICAL EXAM: Deferred BP 109/80 Pulse (!) 57 Temp 36.7 C (98 F) (Temporal) Resp 16 Wt 95 kg (209 lb 6.4 oz) SpO2 92% BMI 26.87 kg/m ASSESSMENT and RECOMMENDATIONS: 1. Screening for lung cancer: Six year risk for lung cancer: 6.3% Source: I & Combine I have determined that the patient is eligible for a low dose CT based on age, absence of signs or symptoms of lung cancer, and total pack years: Yes. The patient and I engaged in shared decision making, including the use of one or more decision aids, to include benefits, harms, follow-up diagnostic testing, over-diagnosis, false positive rate, and total radiation exposure. The patient understands and feels comfortable with it: Yes. The patient was counseled on the importance of adherence to annual LDCT lung cancer screening, impact of comorbidities and ability or willingness to undergo diagnosis and treatment. The patient understands and feels comfortable with it:Yes. 2. Nicotine dependence: The patient was counseled on the importance of maintaining cigarette smoking abstinence - The patient is committed to remaining abstinent from tobacco. Linda Jean Baptiste APRN.KATINA NPI #: November 12, 2021 11:04 AM documented in this encounter [facility] 11-08-2021 History of Present illness Narrative He would like refills on his tramadol, which he uses for arthritis. Low Testosterone: His last testosterone lab was done (date) 07/13/21. He Is taking medication for it. He denies a decrease in libido, denies fatigue, and he denies muscle weakness, while on his medication. Current medication is: testosterone Chief Complaint Patient presents with Arthritis 3 mo fu Other Low testosterone He would like refills on his tramadol, which he uses for arthritis. Low Testosterone: His last testosterone lab was done (date) 5/27/22. He Is taking medication for it. He denies a decrease in libido, denies fatigue, and he denies muscle weakness, while on his medication. Current medication is: testosterone HPI Testicular dysfunction Patient here for refill of his medication. Medicines have been effective. Arthritis Patient is here for refill of his medication. Medicine has been effective in reducing her symptoms. No Known Allergies Outpatient Medications Prior to Visit Medication Sig Dispense Refill dutasteride (Avodart) 0.5 MG capsule Take 1 capsule by mouth daily. 90 capsule 1 pantoprazole [address] tablet DR Take 1 tablet by mouth daily. 90 tablet 1 rosuvastatin (Crestor) 5 MG tablet Take 1 tablet by mouth daily. 90 tablet 1 valsartan 160 MG tablet Take 1 tablet by mouth daily. 90 tablet 1 Testosterone 50 MG/5GM (1%) Gel gel Place 0.5 Tubes on skin daily. 225 g 0 traMADol 50 MG tablet Take 1 tablet by mouth 3 times daily as needed. 270 tablet 0 ascorbic acid 500 MG tablet (Patient not taking: No sig reported) Cholecalciferol (vitamin D3) 125 MCG (5000 UT) capsule (Patient not taking: No sig reported) famotidine 40 MG tablet Take 1 tablet by mouth daily. (Patient not taking: No sig reported) 90 tablet 1 Lactobacillus Acid-Pectin (acidophilus/citrus pectin) tablet (Patient not taking: No sig reported) levoFLOXacin 500 MG tablet (Patient not taking: No sig reported) metroNIDAZOLE 500 MG tablet (Patient not taking: Reported on 07/18/2021) MULTIPLE VITAMIN PO Take by mouth. (Patient not taking: Reported on 07/18/2021) Zinc Gluconate 50 MG tablet No facility-administered medications prior to visit. 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 Chemo/RT with Cisplatin and RT and Ethyol. RT completed 02/28/09. family history includes Coronary Artery Disease in an other family member; Heart Disease - Other in his brother, father, and another family member; No known problems in his mother. reports that he has quit smoking. His smoking use included cigarettes. He quit after 46.00 years of use. He has never used smokeless tobacco. He reports that he does not drink alcohol and does not use drugs. Past Surgical History: Procedure Laterality Date NECK SURGERY 2008 for cancer INGUINAL HERNIA REPAIR 1988 VASECTOMY Review of Systems Visit Vitals BP 114/82 Pulse 64 Temp 97 F (36.1 C) (Temporal) Resp 20 Ht 1.855 m (6' 1.03) Wt 93.3 kg (205 lb 9.6 oz) SpO2 97% BMI 27.10 kg/m Review of Systems Constitutional: Positive for fatigue. Negative for activity change. HENT: Negative. Respiratory: Negative for shortness of breath. Cardiovascular: Negative for chest pain. Gastrointestinal: Positive for blood in stool. Negative for nausea. Heartburn Endocrine: Negative for cold intolerance and heat intolerance. Genitourinary: Negative for difficulty urinating and frequency. Musculoskeletal: Positive for arthralgias. Neurological: Negative for dizziness, numbness and headaches. Psychiatric/Behavioral: Negative. Negative for dysphoric mood. The patient is not nervous/anxious. Physical Exam Physical Exam Vitals and nursing note reviewed. Constitutional: General: He is not in acute distress. Eyes: Conjunctiva/sclera: Conjunctivae normal. Pupils: Pupils are equal, round, and reactive to light. Neck: Vascular: No carotid bruit. Cardiovascular: Rate and Rhythm: Normal rate and regular rhythm. Pulmonary: Effort: Pulmonary effort is normal. Breath sounds: Normal breath sounds. Skin: General: Skin is warm and dry. Neurological: Mental Status: He is alert and oriented to person, place, and time. Psychiatric: Mood and Affect: Mood normal. Assessment & Plan Problem List Items Addressed This Visit Endocrine Testicular hypofunction Relevant Medications Testosterone 50 MG/5GM (1%) Gel gel MusculoSkeletal Arthritis Relevant Medications traMADol 50 MG tablet Richy Emerson MD 11/08/2021, 2:35 PM documented in this encounter [facility] 07-18-2021 History of Present illness Narrative Benign Prostatic Hyperplasia (BPH): He denies decreased stream, denies urgency, and he denies blood in his urine. Current medication/treatments: avodart GERD: He denies heartburn, and he denies regurgitation, while being on his medication. Current medication/treatments: pantoprazole (was previously prescribed elsewhere) Hyperlipidemia: His last lipid profile was done (date) 07/13/21. Current medication/treatments: rosuvastatin. He states: no to medication side effects. He states: no to other medications tried and failed? He would like refills on his testosterone gel, which he uses for testosterone deficiency. Arthritis: Located in his hands and wrists. Current medication/treatments: tramadol Hypertension: He denies chest pain, denies headaches, and he denies dizziness, while being on his medications. He denies checking his BP's at home. Current medication/treatments: valsartan BP Readings from Last 3 Encounters: 04/18/21 116/78 01/24/21 118/68 08/08/20 110/64 He had labs through [facility], to be reviewed at today's visit. WBC (WHITE BLOOD COUNT) Date Value Ref Range Status 07/13/2021 9.2 3.6 - 11.0 10*3/uL Final HEMATOCRIT (HCT) Date Value Ref Range Status 07/13/2021 53.3 (H) 42.0 - 52.0 % Final CHOLESTEROL Date Value Ref Range Status 07/13/2021 163 100 - 199 MG/DL Final TRIGLYCERIDE Date Value Ref Range Status 07/13/2021 216 (H) <150 MG/DL Final HDL CHOLESTEROL Date Value Ref Range Status 07/13/2021 46 40 - 60 MG/DL Final ALT Date Value Ref Range Status 07/13/2021 20 17 - 63 IU/L Final AST Date Value Ref Range Status 07/13/2021 23 15 - 41 IU/L Final SODIUM Date Value Ref Range Status 07/13/2021 138 136 - 145 MMOL/L Final POTASSIUM Date Value Ref Range Status 07/13/2021 4.2 3.5 - 5.1 MMOL/L Final CHLORIDE Date Value Ref Range Status 07/13/2021 99 98 - 107 MMOL/L Final CREATININE SERUM Date Value Ref Range Status 07/13/2021 0.91 0.66 - 1.25 MG/DL Final BUN Date Value Ref Range Status 07/13/2021 22 (H) 7 - 20 MG/DL Final CARBON DIOXIDE (CO2) Date Value Ref Range Status 07/13/2021 30 22 - 30 MMOL/L Final TSH Date Value Ref Range Status 02/05/2017 1.657 0.45 - 5.33 uIU/ML Final GLUCOSE Date Value Ref Range Status 07/13/2021 93 70 - 100 MG/DL Final Comment: NORMAL <100 mg/dL PREDIABETES 101-126 mg/dL DIABETES 126 mg/dL or higher HEMOGLOBIN A1C Date Value Ref Range Status 01/24/2021 5.7 <6 % Final Comment: NORMAL <5.7% PREDIABETES 5.7-6.4% DIABETES 6.5% OR HIGHER Chief Complaint Patient presents with Benign Prostatic Hyperplasia 6 mo fu Heartburn 6 mo fu Hyperlipidemia 6 mo fu Other 6 mo fu testosterone deficiency Arthritis 6 mo fu Hypertension 6 mo fu Lab Review 6 mo fu Benign Prostatic Hyperplasia (BPH): He denies decreased stream, denies urgency, and he denies blood in his urine. Current medication/treatments: avodart GERD: He denies heartburn, and he denies regurgitation, while being on his medication. Current medication/treatments: pantoprazole (was previously prescribed elsewhere) Hyperlipidemia: His last lipid profile was done (date) 07/13/21. Current medication/treatments: rosuvastatin. He states: no to medication side effects. He states: no to other medications tried and failed? He would like refills on his testosterone gel, which he uses for testosterone deficiency. Arthritis: Located in his hands and wrists. Current medication/treatments: tramadol Hypertension: He denies chest pain, denies headaches, and he denies dizziness, while being on his medications. He denies checking his BP's at home. Current medication/treatments: valsartan BP Readings from Last 3 Encounters: 04/18/21 116/78 01/24/21 118/68 08/08/20 110/64 He had labs through [facility], to be reviewed at today's visit. WBC (WHITE BLOOD COUNT) Date Value Ref Range Status 07/13/2021 9.2 3.6 - 11.0 10*3/uL Final HEMATOCRIT (HCT) Date Value Ref Range Status 07/13/2021 53.3 (H) 42.0 - 52.0 % Final CHOLESTEROL Date Value Ref Range Status 07/13/2021 163 100 - 199 MG/DL Final TRIGLYCERIDE Date Value Ref Range Status 07/13/2021 216 (H) <150 MG/DL Final HDL CHOLESTEROL Date Value Ref Range Status 07/13/2021 46 40 - 60 MG/DL Final ALT Date Value Ref Range Status 07/13/2021 20 17 - 63 IU/L Final AST Date Value Ref Range Status 07/13/2021 23 15 - 41 IU/L Final SODIUM Date Value Ref Range Status 07/13/2021 138 136 - 145 MMOL/L Final POTASSIUM Date Value Ref Range Status 07/13/2021 4.2 3.5 - 5.1 MMOL/L Final CHLORIDE Date Value Ref Range Status 07/13/2021 99 98 - 107 MMOL/L Final CREATININE SERUM Date Value Ref Range Status 07/13/2021 0.91 0.66 - 1.25 MG/DL Final BUN Date Value Ref Range Status 07/13/2021 22 (H) 7 - 20 MG/DL Final CARBON DIOXIDE (CO2) Date Value Ref Range Status 07/13/2021 30 22 - 30 MMOL/L Final TSH Date Value Ref Range Status 02/05/2017 1.657 0.45 - 5.33 uIU/ML Final GLUCOSE Date Value Ref Range Status 07/13/2021 93 70 - 100 MG/DL Final Comment: NORMAL <100 mg/dL PREDIABETES 101-126 mg/dL DIABETES 126 mg/dL or higher HEMOGLOBIN A1C Date Value Ref Range Status 01/24/2021 5.7 <6 % Final Comment: NORMAL <5.7% PREDIABETES 5.7-6.4% DIABETES 6.5% OR HIGHER HPI Hypertension, Blood Pressure Recheck Amy Sun, a 70 y.o. male, is here for recheck on his blood pressure and refills of his medication. He has been compliant with his medication. yes There have been no intolerability issues. yes BP Readings from Last 3 Encounters: 07/18/21 : 114/68 04/18/21 : 116/78 01/24/21 : 118/68 Hyperlipidemia Amy Sun, an 70 y.o. male, is here for refill of his cholesterol medications. He has been compliant with his medicines. yes There have been no intolerances or side effects. yes Lab Results Component Value Date CHOLESTEROL 163 07/13/2021 CHOLESTEROL 157 01/24/2021 CHOLESTEROL 162 08/01/2020 TRIG 216 (H) 07/13/2021 TRIG 102 01/24/2021 TRIG 181 (H) 08/01/2020 HDL 46 07/13/2021 HDL 38 (L) 01/24/2021 HDL 43 08/01/2020 LDLCALC 74 07/13/2021 LDLCALC 99 01/24/2021 LDLCALC 83 08/01/2020 Reflux Amy Sun, an 70 y.o. male, is here for refill on his medication for his gastroesophageal reflux. Since being on the medication his symptoms have rapidly getting better. Has had no problems with the medicine. yes He is compliant with taking the medication. yes He has noted no change in stools no blood or melena in the stool. yes BPH Patient is here for refill of his medication. His. Medications have been effective He has been compliant. Testosterone deficiency Patient here for refill of his medications. Medications have been effective in reducing his symptoms. He has been compliant had no side effects. Joint pains Patient here for refill of his medications. Medications have been effective. He has been compliant and no side effects. No Known Allergies Outpatient Medications Prior to Visit Medication Sig Dispense Refill Zinc Gluconate 50 MG tablet dutasteride (Avodart) 0.5 MG capsule Take 1 capsule by mouth daily. 90 capsule 1 pantoprazole [address] tablet rosuvastatin (Crestor) 5 MG tablet Take 1 tablet by mouth daily. 90 tablet 1 Testosterone 50 MG/5GM (1%) Gel gel Place 0.5 Tubes on skin daily. 225 g 0 traMADol 50 MG tablet Take 1 tablet by mouth 3 times daily as needed. 270 tablet 0 valsartan 160 MG tablet Take 1 tablet by mouth daily. 90 tablet 1 ascorbic acid 500 MG tablet (Patient not taking: Reported on 07/18/2021) Cholecalciferol (vitamin D3) 125 MCG (5000 UT) capsule (Patient not taking: Reported on 07/18/2021) famotidine 40 MG tablet Take 1 tablet by mouth daily. (Patient not taking: No sig reported) 90 tablet 1 Lactobacillus Acid-Pectin (acidophilus/citrus pectin) tablet (Patient not taking: Reported on 07/18/2021) levoFLOXacin 500 MG tablet (Patient not taking: Reported on 07/18/2021) metroNIDAZOLE 500 MG tablet (Patient not taking: Reported on 07/18/2021) MULTIPLE VITAMIN PO Take by mouth. (Patient not taking: Reported on 07/18/2021) aspirin 81 MG Tab daily. (Patient not taking: No sig reported) omeprazole [address] capsule Take 1 capsule by mouth daily. (Patient not taking: No sig reported) 90 capsule 1 omeprazole [address] tablet Take by mouth. (Patient not taking: No sig reported) No facility-administered medications prior to visit. 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 Chemo/RT with Cisplatin and RT and Ethyol. RT completed 02/28/09. family history includes Coronary Artery Disease in an other family member; Heart Disease - Other in his brother, father, and another family member; No known problems in his mother. reports that he has quit smoking. His smoking use included cigarettes. He quit after 46.00 years of use. He has never used smokeless tobacco. He reports that he does not drink alcohol and does not use drugs. Past Surgical History: Procedure Laterality Date NECK SURGERY 2008 for cancer INGUINAL HERNIA REPAIR 1988 VASECTOMY Review of Systems Visit Vitals BP 114/68 Pulse 72 Temp 98 F (36.7 C) (Temporal) Resp 18 Ht 1.855 m (6' 1.03) Wt 93.1 kg (205 lb 3.2 oz) SpO2 94% BMI 27.05 kg/m Review of Systems Constitutional: Positive for fatigue. Negative for activity change. HENT: Negative. Respiratory: Negative for shortness of breath. Cardiovascular: Negative for chest pain. Gastrointestinal: Positive for blood in stool. Negative for nausea. Heartburn Endocrine: Negative for cold intolerance and heat intolerance. Genitourinary: Negative for difficulty urinating and frequency. Musculoskeletal: Positive for arthralgias. Neurological: Negative for dizziness, numbness and headaches. Psychiatric/Behavioral: Negative. Negative for dysphoric mood. The patient is not nervous/anxious. Physical Exam Physical Exam Vitals and nursing note reviewed. Eyes: Pupils: Pupils are equal, round, and reactive to light. Neck: Vascular: No carotid bruit. Cardiovascular: Rate and Rhythm: Normal rate and regular rhythm. Pulmonary: Effort: Pulmonary effort is normal. Breath sounds: Normal breath sounds. Musculoskeletal: Right lower leg: No edema. Left lower leg: No edema. Skin: General: Skin is warm and dry. Neurological: Mental Status: He is alert and oriented to person, place, and time. Psychiatric: Mood and Affect: Mood normal. Assessment & Plan Problem List Items Addressed This Visit Digestive Gastroesophageal reflux disease without esophagitis - Primary Relevant Medications pantoprazole [address] tablet Endocrine Testicular hypofunction Relevant Medications Testosterone 50 MG/5GM (1%) Gel gel Other Relevant Orders CBC,PLATELETS TESTOSTERONE Hyperlipidemia Relevant Medications rosuvastatin (Crestor) 5 MG tablet Other Relevant Orders LIPID PANEL W CALCULATED LDL COMPREHENSIVE METABOLIC PANEL MusculoSkeletal Arthritis Relevant Medications traMADol 50 MG tablet Urinary Benign prostatic hyperplasia with lower urinary tract symptoms Relevant Medications dutasteride (Avodart) 0.5 MG capsule Other Visit Diagnoses Benign hypertension Relevant Medications valsartan 160 MG tablet Richy Emerson MD 07/18/2021, 10:57 AM documented in this encounter [facility] 05-15-2021 History of Present illness Narrative HISTORY OF PRESENT ILLNESS: Mr. 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 Patient that time was treated with chemoradiation therapy. He completed radiation therapy in February 2009. He was treated on the care Dr. Lennon. He was last seen by him on September 2017. He presents for his yearly follow-up. CURRENT STATUS: Since her last visit, he reports doing well. He reports that he is still taking his testosterone. He reports that he played golf today. He reports that his is having fun. ROS: CONSTITUTIONAL: No fever, chills, night sweats or excessive fatigue. EYES: No significant visual difficulties. No diplopia. No blurred vision HEENT: No sore mouth or throat. No sinus drainage. ENDOCRINE: No hot flashes or night sweats. Denies excessive thirst. HEMATOLOGY/LYMPHOLOGY: No easy bruising or bleeding, The patient denies any tender or palpable lymph nodes. RESPIRATORY: No dyspnea on exertion, chest pain or hemoptysis. CARDIOVASCULAR: Denies palpitations orthopnea. GASTROINTESTINAL: Denies GI bleeding or change in bowel habits. Denies heartburn or abdominal pain. MUSCULOSKELETAL: No joint pain, swelling or redness. No decreased range of motion. SKIN: No chronic rashes, inflammation, ulcerations or skin changes. NEURO: No headaches. Denies extremity weakness or numbness. Normal gait. All other reviewed and negative other than HPI. ECOG PERFORMANCE STATUS: 0- Fully active, able to carry on all pre-disease performance w/o restriction. Social History Tobacco Use Smoking status: Former Smoker Packs/day: 2.00 Years: 46.00 Pack years: 92.00 Quit date: 09/19/2008 Years since quittin.6 Smokeless tobacco: Never Used Tobacco comment: Quit Vaping Use Vaping Use: Never used Substance Use Topics Alcohol use: No Drug use: No FAMILY HISTORY Problem Relation Age of Onset Cataract Mother other (Dementia) Mother Coronary Artery Disease Father Heart Father Cataract Father Glaucoma Father Detached Retina No Family History Macular Degen No Family History Blindness No Family History Amblyopia No Family History Strabismus No Family History PAST MEDICAL HISTORY Diagnosis Date Epiretinal membrane (ERM) of left eye Erythrocytosis 09/15/2014 Hyperlipemia 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) 12/02/2008 Nausea with vomiting PCO (posterior capsular opacification), left Pseudophakia, both eyes Secondary and unspecified malignant neoplasm of lymph nodes of head, face, and neck 12/02/2008 Vitreous floaters PHYSICAL EXAM: BP 101/71 Pulse 59 Temp 98.1 Resp 16 Ht 6' 2.016 (1.88m) Wt 210 lb 8 oz (95.5kg) SpO2 95% BMI 27.02 kg/(m^2). CONSTITUTIONAL: Awake, alert, oriented. HEAD (Incl. face): Normocephalic; Atraumatic. EYES: Pupils are reactive. No scleral icterus. HEENT: No oral exudates. NECK: No thyromegaly. No JVD. Evidence of neck surgery. HEMATOLOGY/LYMPHATIC: No petechiae or purpura. No tender or palpable lymph nodes in the cervical, supraclavicular, axillary or inguinal areas. RESPIRATORY: Lungs are clear to auscultation. CARDIOVASCULAR: Regular rate and rhythm. 2 + radial pulse. ABDOMEN: Non-tender, soft, positive bowel sounds. BACK/SPINE: No kyphosis or scoliosis. Non tender to palpation. MUSCULOSKELETAL: No tenderness or swelling, normal range of motion without obvious weakness. EXTREMITIES: No cyanosis, clubbing INTEGUMENTARY: No rashes or masses. NEURO: No sensory or motor deficits, normal cerebellar function, normal gait, cranial nerves intact. PSYCHIATRIC: Pleasant affect. No signs of agitation. LABS: Results for AMY SUN ( ) as of 05/15/2021 14:51 Ref. Range 05/14/2021 13:51 Sodium Latest Ref Range: 136 - 144 mmol/L 139 Potassium Latest Ref Range: 3.7 - 5.1 mmol/L 4.4 Chloride Latest Ref Range: 97 - 105 mmol/L 100 CO2 Latest Ref Range: 22 - 30 mmol/L 29 BUN Latest Ref Range: 9 - 24 mg/dL 16 Creatinine Latest Ref Range: 0.73 - 1.22 mg/dL 0.92 Glucose Latest Ref Range: 74 - 99 mg/dL 96 Protein, Total Latest Ref Range: 6.3 - 8.0 g/dL 7.1 Calcium Latest Ref Range: 8.5 - 10.2 mg/dL 9.4 Albumin Latest Ref Range: 3.9 - 4.9 g/dL 4.3 Bilirubin, Total Latest Ref Range: 0.2 - 1.3 mg/dL 0.5 Alkaline Phosphatase Latest Ref Range: 38 - 113 U/L 127 (H) ALT Latest Ref Range: 10 - 54 U/L 21 AST Latest Ref Range: 14 - 40 U/L 25 Anion Gap Latest Ref Range: 9 - 18 mmol/L 10 eGFR Latest Ref Range: >=60 mL/min/1.73m 89 Hematocrit Latest Ref Range: 39.0 - 51.0 % 56.6 (H) TSH Latest Ref Range: 0.270 - 4.200 mIU/L 1.810 WBC Latest Ref Range: 3.70 - 11.00 k/uL 9.14 RBC Latest Ref Range: 4.20 - 6.00 m/uL 6.35 (H) Hemoglobin Latest Ref Range: 13.0 - 17.0 g/dL 18.8 (H) Platelet Count Latest Ref Range: 150 - 400 k/uL 252 MCV Latest Ref Range: 80.0 - 100.0 fL 89.1 MCH Latest Ref Range: 26.0 - 34.0 pg 29.6 MCHC Latest Ref Range: 30.5 - 36.0 g/dL 33.2 MPV Latest Ref Range: 9.0 - 12.7 fL 9.5 RDW-CV Latest Ref Range: 11.5 - 15.0 % 13.9 DTYPE Unknown Auto Neut% Latest Units: % 82.0 Abs Neut (ANC) Latest Ref Range: 1.45 - 7.50 k/uL 7.49 Lymph% Latest Units: % 9.7 Abs Lymph Latest Ref Range: 1.00 - 4.00 k/uL 0.89 (L) Gaston% Latest Units: % 6.5 Abs Gaston Latest Ref Range: <0.87 k/uL 0.59 Eosin% Latest Units: % 1.1 Abs Eosin Latest Ref Range: <0.46 k/uL 0.10 Baso% Latest Units: % 0.5 Abs Baso Latest Ref Range: <0.11 k/uL 0.05 Immature Gran % Latest Units: % 0.2 IMMATURE GRANS (ABS) Latest Ref Range: <0.10 k/uL <0.03 NRBC Latest Units: /100 WBC 0.0 Absolute nRBC Latest Ref Range: <0.01 k/uL <0.01 RADIOLOGY: CT LUNG FOLLOWUP WO IVCON -DATE OF EXAM: May 14 2021 1:47PM RESULT: Are nodules present? Yes, 1-5 nodules Nodule 1: This solid nodule is located in the right lower lobe on slice number 269 with an average diameter of 5.5 mm (7 mm x 4 mm). New. Nodule 2: This solid nodule is located in the left upper lobe on slice number 32 with an average diameter of 2 mm. Stable Nodule 3: This calcified nodule is located in the left lower lobe on slice number 198 with an average diameter of 3 mm. Stable Nodule 4: This calcified nodule is located in the left upper on slice number 72 with an average diameter of 2 mm. Stable Other lung nodule comments: The new right lower lobe nodule is likely inflammatory/infectious in etiology given waxing and waning nodules in the lower lobes. Interval resolution of clustered right lower lobe nodules with the largest on prior CT image 216 with tiny residual nodules present in the posterior right lower lobe (image 234) and interval resolution of previously seen clustered peribronchial nodules in the left lower lobe on prior CT image 245, consistent with inflammatory/infectious process. A punctate calcified granuloma is also noted at the posterior right lower lobe (image 262). Stable nodular opacities in the left lung apex, likely postinflammatory in nature. Other findings: There is trace amount retained secretion in the trachea and the central airways are otherwise patent without endobronchial lesion. There is biapical pleural-parenchymal scarring. Mild upper lobe predominant centrilobular emphysema with diffuse bronchial wall thickening is noted. No focal consolidation. The imaged thyroid gland is unremarkable. The mediastinal and hilar lymph nodes are stable which are within the range of normal variation without new or progressive thoracic lymphadenopathy. The esophagus is patulous reflecting esophageal dysmotility which places the patient at risk for aspiration. Atherosclerotic calcifications are seen in the thoracic aorta noting borderline diameter of the ascending aorta. The main pulmonary artery is top normal in caliber. The cardiac chambers are normal in size. No distinct coronary artery calcifications. No pericardial effusion or pericardial thickening. The imaged upper abdomen is stable without acute abnormality. Degenerative changes of the thoracic spine. Emphysema: Mild (5-25%), centrilobular, upper lobe Coronary Artery Calcifications: Circumflex none; Left Anterior Descending none; Right Coronary none IMPRESSION: LungRADS category: 3 LungRADS modifier: None LungRADS 0 reason: n/a Recommendations: Followup LDCT in 6 months ASSESSMENT / PLAN: 1. 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 He reports that he is doing well. He reports that he follows with Dr. Holder. 2. Hepatic steatosis 3. 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 I will take a 1 unit today. He will reduce the dose and followup with his fmd. I will recheck his levels one month. 4. Lung cancer screening. He quit smoking in 2008 but prior to that had a 3 ppd for 46 years. He is >55 and less than 78. He has his last screening as 12/2019 Some Elements Copied from my note previous note. I have updated where appropriate, and all reflect current medical decision making from today, May 15, 2021 Sushma Brandon MD documented in this encounter [facility] 05-14-2021 Miscellaneous Notes Per order of Dr. Brandon, CBC and CMP results from 05-14-[address] Emerson through the [employer] system. Patient reports he is taking testosterone at this time. Natalia Smith RN ----- Message from Sushma Brandon sent at 05/14/2021 2:57 PM EDT ----- Fax labs to [facility]. Is patient taking testosterone? documented in this encounter [facility] 05-14-2021 History of Present illness Narrative Radiology Service Progress Note PATIENT NAME: Amy Sun DATE OF SERVICE: May 14, 2021 TIME: 1:50 PM PATIENT IDENTITY VERIFICATION COMPLETED USING TWO (2) IDENTIFIERS: Name and Date of confirmed by patient verbally. FALL SCREENING: Has the patient had 2 falls in the last year or 1 fall with injury or currently using an Ambulatory Assistive Device (Walker, Cane, Wheelchair, Crutches, etc.)? No PATIENT GENDER DATA: Male PATIENT RELEVANT IMPLANT DATA REVIEWED: Not Applicable RADIOLOGY DEPARTMENT: CT; Exam(s) Completed: Chest PERIPHERAL IV DATA: Not applicable SIGNED BY: RT Shauna(R) May 14, 2021 1:50 PM documented in this encounter [facility] 04-18-2021 History of Present illness Narrative Chief Complaint Patient presents with Follow-up [facility] colitis Arthritis 3 mo fu JANNA done: no Hospital Follow-Up: He went to [facility], and his primary diagnosis was Colitis. He was admitted on (date) 04/05/21, and discharged on (date) 04/07. He admits to starting new medications while being in the hospital. He admits to stopping/changing medications while in the hospital. He states no to having surgery while at the hospital. If yes, how is the wound none and are there Home Health Nurses coming to the home no. He says he has FELT:good since being home. He states he is EATING:good, SLEEPING:good and his MOBILITY has been:good. He has an appointment scheduled 05/18/21 for a colonoscopy with Dr Jaimes at [facility]. Arthritis: Located in his multiple joints. Current medication/treatments: tramadol HPI hospital follow up Patient's here for follow-up After being admitted for couple of days with diagnosis of colitis. Patient states that he has felt better since being home.Noted some blood in his stool went to the ER to be checked tested positive for covid Multiple joint pains Patient's here for refill of his tramadol. Medication has been effective in reducing his symptoms. He has been compliant and had no side effects. No Known Allergies Outpatient Medications Prior to Visit Medication Sig Dispense Refill ascorbic acid 500 MG tablet Cholecalciferol (vitamin D3) 125 MCG (5000 UT) capsule Cholecalciferol 125 MCG (5000 UT) per tablet Take by mouth. dutasteride (Avodart) 0.5 MG capsule Take 1 capsule by mouth daily. 90 capsule 1 Lactobacillus Acid-Pectin (acidophilus/citrus pectin) tablet levoFLOXacin 500 MG tablet metroNIDAZOLE 500 MG tablet MULTIPLE VITAMIN PO Take by mouth. pantoprazole [address] tablet rosuvastatin (Crestor) 5 MG tablet Take 1 tablet by mouth daily. 90 tablet 1 Testosterone 50 MG/5GM (1%) Gel gel Place 0.5 Tubes on skin daily. 225 g 0 valsartan 160 MG tablet Take 1 tablet by mouth daily. 90 tablet 1 Zinc Gluconate 50 MG tablet traMADol 50 MG tablet Take 1 tablet by mouth 3 times daily as needed. 270 tablet 0 aspirin 81 MG Tab daily. (Patient not taking: Reported on 01/24/2021) famotidine 40 MG tablet Take 1 tablet by mouth daily. (Patient not taking: Reported on 04/18/2021) 90 tablet 1 omeprazole [address] capsule Take 1 capsule by mouth daily. (Patient not taking: Reported on 04/18/2021) 90 capsule 1 omeprazole [address] tablet Take by mouth. (Patient not taking: Reported on 04/18/2021) No facility-administered medications prior to visit. 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 Chemo/RT with Cisplatin and RT and Ethyol. RT completed 02/28/09. family history includes Coronary Artery Disease in an other family member; Heart Disease - Other in his brother, father, and another family member; No known problems in his mother. reports that he has quit smoking. His smoking use included cigarettes. He quit after 46.00 years of use. He has never used smokeless tobacco. He reports that he does not drink alcohol and does not use drugs. Past Surgical History: Procedure Laterality Date NECK SURGERY 2008 for cancer INGUINAL HERNIA REPAIR 1988 VASECTOMY Review of Systems Visit Vitals BP 116/78 Pulse 70 Temp 97.9 F (36.6 C) (Temporal) Resp 18 Ht 1.855 m (6' 1.03) Wt 97.8 kg (215 lb 9.6 oz) SpO2 90% BMI 28.42 kg/m Review of Systems Constitutional: Positive for fatigue. Negative for activity change. HENT: Negative. Respiratory: Negative for shortness of breath. Cardiovascular: Negative for chest pain. Gastrointestinal: Positive for blood in stool. Negative for nausea. Heartburn Endocrine: Negative for cold intolerance and heat intolerance. Genitourinary: Negative for difficulty urinating and frequency. Musculoskeletal: Positive for arthralgias. Neurological: Negative for dizziness, numbness and headaches. Psychiatric/Behavioral: Negative. Negative for dysphoric mood. The patient is not nervous/anxious. Physical Exam Physical Exam Vitals and nursing note reviewed. Constitutional: General: He is not in acute distress. Eyes: Pupils: Pupils are equal, round, and reactive to light. Neck: Vascular: No carotid bruit. Cardiovascular: Rate and Rhythm: Normal rate and regular rhythm. Pulmonary: Effort: Pulmonary effort is normal. Breath sounds: Normal breath sounds. Skin: General: Skin is warm and dry. Neurological: Mental Status: He is alert and oriented to person, place, and time. Psychiatric: Mood and Affect: Mood normal. Assessment & Plan Problem List Items Addressed This Visit MusculoSkeletal Arthritis Relevant Medications traMADol 50 MG tablet Richy Emerson MD 04/18/2021, 2:03 PM JANNA done: no Hospital Follow-Up: He went to [facility], and his primary diagnosis was Colitis. He was admitted on (date) 04/05/21, and discharged on (date) 04/07. He admits to starting new medications while being in the hospital. He admits to stopping/changing medications while in the hospital. He states no to having surgery while at the hospital. If yes, how is the wound none and are there Home Health Nurses coming to the home no. He says he has FELT:good since being home. He states he is EATING:good, SLEEPING:good and his MOBILITY has been:good. He has an appointment scheduled 05/18/21 for a colonoscopy with Dr Jaimes at [facility]. Arthritis: Located in his multiple joints. Current medication/treatments: tramadol documented in this encounter [facility] 04-07-2021 Note Send Summary: Discharge Summary Providers: Provider RoleProvider Name PrimaryRichy Emerson Note Recipients: Richy Emerson MD - [id number] [] Discharge Summary: Admission Date: .05-Apr-2021 08:24:00 Discharge Date: 07-Apr-2021 Attending Physician at Discharge: Glenys Calloway Admission Reason: GI bleed(1) Final Discharge Diagnoses: Infectious colitis, Abdominal aortic aneurysm (AAA), Blood in stool, COVID-19 Procedures: none Condition at Discharge: Satisfactory Disposition at Discharge: .Home Vital Signs: T PRBPSpO2 [id number]% Date/Time04/07 7: 7: 7: 7: 7:00 Range(36.5C - 36.6C ) (54 - 75 ) (16 - 20 ) (84 - 112 )/ (49 - 76 ) (91% - 94% ) Date: Weight/Scale Type:Height: 18-Mar-2021 03:5194.4 kg Physical Exam: Constitutional: awake/alert/oriented x3, no distress, alert and cooperative Eyes: PERRL, EOMI, clear sclera ENMT: mucous membranes moist, adequate dentition, neck supple Respiratory/Thorax: No dyspnea, no cough, breath sounds clear Cardiovascular: Regular rate and rhythm, 2+ equal pulses of the extremities, normal S 1and S 2, no edema Gastrointestinal: Nondistended, soft, non-tender, no rebound tenderness or guarding, no masses palpable, no organomegaly, +BS, no bruits Musculoskeletal: ROM intact, no joint swelling, normal strength Neurological: alert and oriented x3, no tremor, speech clear, normal strength Psychological: Appropriate mood and behavior, cooperative and pleasant Skin: Warm and dry, no lesions, no rashes Hospital Course: AMY SUN is a 70 year old Male With significant past medical history of BPH, GERD, hyperlipidemia, testicular hypofunction, osteoarthritis, benign essential hypertension, chronic kidney disease stage I, COVID vaccinated May 19, 2020 and April 20, 2020 with booster, hepatic steatosis, insomnia, tongue cancer stage IIb, T2, N1, G3 invasive poorly differentiated 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 RT completed February 28, 2009. He presented to the emergency department for having 3 episodes of hematochezia. He had large dark clots in his stool. On presentation to the emergency department he was afebrile and hemodynamically stable. White blood cell count normal at 10.4, hemoglobin 17.6 with a baseline of 15-to 16, hematocrit 51.8 and platelet count 222. Absolute neutrophil count 8.11. INR 1.2, prothrombin time 13.6, D-dimer 1176 and fibrinogen 373. Glucose 105, sodium 141, potassium 4.0, bicarbonate 33, BUN 23, creatinine 0.97 with normal hepatic profile. Ferritin normal at 58. Lactate normal at 0.6. Influenza A&B negative. He was found to be Covid positive. In the emergency department he was treated with dexamethasone 10 mg IV once and Flagyl 500 mg IV once. Patient was admitted for possible GI bleeding, acute colitis infectious versus ischemia, COVID-19 pneumonia. Throughout patient's hospital stay he remained asymptomatic from the Covid. Patient's hemoglobin remained hemodynamically stable. Dr. Jaimes was consulted and felt that patient was clinically stable. Patient is to follow-up with Dr. Jaimes for outpatient testing. Patient will continue a oral course of Flagyl for the colitis and Levaquin for the pneumonia. Patient was also given a 21-day supply of lactobacillus, vitamin C zinc and vitamin D. There was concerns that patient likely has underlying COPD. An overnight pulse ox study did show oxygen dropped to 89% however it was felt that it was not an accurate test because patient did not sleep well. It is recommended to have a formal sleep study and a pulmonary function test done as outpatient. Discharge Information and Continuing Care: Lab Results - Pending: None Radiology Results - Pending: None Discharge Instructions: Activity: activity as tolerated. May not return to school/work until follow-up visit with. pcp Instructions: covid 19 Nutrition/Diet: resume normal diet Labs: Lab Test(s): H&H Date To Be Drawn: 04/09/21 Call Results To: Dr. Jaimes Additional Orders: Additional Instructions: Follow up with PCP within 1 week of discharge: infrarenal aorta aneurysmal dilation 3.1 x 2.8 cm Also please follow-up with your primary care physician to discuss a formal sleep study and a pulmonary function test. Follow up with gastroenterology within 1 week of discharge Resume home medications New medications: Levaquin 500 mg tablet daily for 9 days Flagyl 500 mg every 8 hours for 9 days Lactobacillus daily Zinc daily Vitamin C daily Vitamin D daily Have H&H bloodwork drawn April 09, 2021 Follow Up Appointments: Follow-Up Appointment 01: Physician/Dept/Service: Dr. Emerson Reason for Referral: PCP. follow up post discharge Call to Schedule in: 1 week Phone Number: Someone will call you with the time on Sunday 04/09. Follow-Up Appointment 02: Physician/Dept/Servi (more content not included)... [facility] 04-05-2021 Note History of Present I llness: Admission Reason: GI bleed HPI: AMY SUN is a 70 year old Male With significant past medical history of BPH, GERD, hyperlipidemia, testicular hypofunction, osteoarthritis, benign essential hypertension, chronic kidney disease stage I, COVID vaccinated May 19, 2020 and April 20, 2020 with booster, hepatic steatosis, insomnia, tongue cancer stage IIb, T2, N1, G3 invasive poorly differentiated 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 RT completed February 28, 2009. He presented to the emergency department for having 3 episodes of hematochezia. He had large dark clots in his stool. And his had him report to the emergency department. Yesterday he felt fine up until the evening. At that time he felt weak and chills. It was his symptoms that was consistent with migraines except he did not have a headache. And then at that time he had a large bloody bowel movement with clots. After he had the third 1 his made him report to the emergency department. He denies any respiratory symptoms including cough congestion or upper respiratory symptoms. He has had colonoscopies in the past that per patient's were normal. He has never had any gastrointestinal bleeding in the past. He is not taking any NSAIDs. He is not on any antiplatelets. And he is not on blood thinners. He ate for breakfast in the morning 3 pieces of sausage and eggs. And did not eat the rest of the day. On presentation to the emergency department he was afebrile and hemodynamically stable. White blood cell count normal at 10.4, hemoglobin 17.6 with a baseline of 15-to 16, hematocrit 51.8 and platelet count 222. Absolute neutrophil count 8.11. INR 1.2, prothrombin time 13.6, D-dimer 1176 and fibrinogen 373. Glucose 105, sodium 141, potassium 4.0, bicarbonate 33, BUN 23, creatinine 0.97 with normal hepatic profile. Ferritin normal at 58. Lactate normal at 0.6. Influenza A&B negative. He was found to be Covid positive. In the emergency department he was treated with dexamethasone 10 mg IV once and Flagyl 500 mg IV once. He is being admitted for further evaluation. I seen and examined patient on the medical floor since admission he has not had any bloody stools. Past medical history: As stated above Family history: Coronary artery disease Social history: Former smoker he quit after 46 years, denies illicit or alcohol use Past surgical history: Neck surgery 2008, inguinal hernia repair 1987 and vasectomy Allergies: No known drug allergies Medications: Reviewed and reconciled Review of systems: 12 point review of systems reviewed with patient with pertinent positives listed in HPI otherwise review systems negative Comorbidities: Comorbidites: Comorbid Conditionschronic kidney disease, hypertension Chronic Kidney Diseasehypertension CKD StageStage 1 Allergies: No Known Allergies: Medications Prior to Admission: Admission Medication Reconciliation has not been completed for this patient. Objective: Objective Information: T [id number] [id number]% Date/Time04/05 9: 10: 10: 10: 10:30 Range(37C - 37C ) (62 - 73 ) (18 - 18 ) (105 - 112 )/ (76 - 83 ) (92% - 97% ) Highest temp of 37 C was recorded at 04/05 9:13 Pain reported at 04/05 9:13: 0 = None Weights 04/05 15:01: Weight in kg (Weight (kg)) 93.6 04/05 15:01: Weight in lbs ((lbs)) 206.3 04/05 15:01: BMI (kg/m2) (BMI (kg/m2)) 27.23 Physical Exam by System: Constitutional: Well developed, awake/alert/oriented x3, no distress, alert and cooperative Eyes: PERRL, EOMI, clear sclera ENMT: mucous membranes moist, no apparent injury, no lesions seen Head/Neck: Neck supple, no apparent injury, thyroid without mass or tenderness, No JVD, trachea midline, Respiratory/Thorax: Patent airways, CTAB, normal breath sounds with good chest expansion, thorax symmetric Cardiovascular: Regular, rate and rhythm, no murmurs, 2+ equal pulses of the extremities, normal S 1and S 2 Gastrointestinal: Nondistended, soft, non-tender, no rebound tenderness or guarding, no masses palpable, no organomegaly, +BS, no bruits Genitourinary: No Discharge, vesicles or other abnormalities Musculoskeletal: ROM intact, no joint swelling, normal strength Extremities: normal extremities, no cyanosis edema, contusions or wounds, no clubbing Neurological: alert and oriented x3, intact senses, motor, response and reflexes, normal strength Psychological: Appropriate mood and behavior Skin: Warm and dry, no lesions, no rashes Recent Lab Results: Results: I have reviewed these laboratory results: Lactate, Level 05-Apr-2021 13:44:00 ResultValue Lactate, Level 0.6 Influenza A/B,Covid 2019 PCR,Symptomatic 05-Apr-2021 12:13:00 ResultValue Fluid Source Nasal, Nasopharyngeal Influenza A PCR NOT DETECTED Reference Range: Not Detecte (more content not included)... [facility] 04-10-2015 History of Past i llness Narrative Problem Noted Date Resolved Date Pseudophakia of left eye 04/10/2015 017 Pseudophakia of right eye 03/27/20152015 Combined senile cataract 03/14/2015 017 Cataract, secondary obscuring vision 03/14/2015 04/06/2015 Dry eye 03/14/2015 06/05/2016 documented as of this encounter (statuses as of 05/14/2021) [facility] History of Past illness Narrative* Problem Noted Date Resolved Date Pseudophakia of left eye 04/10/2015 017 Pseudophakia of right eye 03/27/20152015 Combined senile cataract 03/14/2015 017 Cataract, secondary obscuring vision 03/14/2015 04/06/2015 Dry eye 03/14/2015 06/05/2016 documented as of this encounter (statuses as of 05/15/2021) [facility] History of Past illness Narrative* Problem Noted Date Resolved Date Pseudophakia of left eye 04/10/2015 017 Pseudophakia of right eye 03/27/20152015 Combined senile cataract 03/14/2015 017 Cataract, secondary obscuring vision 03/14/2015 04/06/2015 Dry eye 03/14/2015 06/05/2016 documented as of this encounter (statuses as of 05/15/2021) [facility] History of Past illness Narrative* Problem Noted Date Resolved Date Pseudophakia of left eye 04/10/2015 017 Pseudophakia of right eye 03/27/20152015 Combined senile cataract 03/14/2015 017 Cataract, secondary obscuring vision 03/14/2015 04/06/2015 Dry eye 03/14/2015 06/05/2016 documented as of this encounter (statuses as of 05/15/2021) [address]-2016 History of Past illness Narrative* Problem Noted Date Resolved Date Pseudophakia of left eye 04/10/2015 017 Pseudophakia of right eye 03/27/20152015 Combined senile cataract 03/14/2015 017 Cataract, secondary obscuring vision 03/14/2015 04/06/2015 Dry eye 03/14/2015 06/05/2016 documented as of this encounter (statuses as of 11/12/2021) [facility] History of Past illness Narrative* Problem Noted Date Resolved Date Pseudophakia of left eye 04/10/2015 017 Pseudophakia of right eye 03/27/20152015 Combined senile cataract 03/14/2015 017 Cataract, secondary obscuring vision 03/14/2015 04/06/2015 Dry eye 03/14/2015 06/05/2016 documented as of this encounter (statuses as of 11/16/2021) [place] [address]-22-2016 History of Past illness Narrative* Problem Noted Date Resolved Date Pseudophakia of left eye 04/10/2015 017 Pseudophakia of right eye 03/27/20152015 Combined senile cataract 03/14/2015 017 Cataract, secondary obscuring vision 03/14/2015 04/06/2015 Dry eye 03/14/2015 06/05/2016 documented as of this encounter (statuses as of 11/22/2021) [facility] History of Past illness Narrative* Problem Noted Date Resolved Date Pseudophakia of left eye 04/10/2015 017 Pseudophakia of right eye 03/27/20152015 Combined senile cataract 03/14/2015 017 Cataract, secondary obscuring vision 03/14/2015 04/06/2015 Dry eye 03/14/2015 06/05/2016 documented as of this encounter (statuses as of 12/01/2021) [address]-2016 History of Past illness Narrative* Problem Noted Date Resolved Date Pseudophakia of left eye 04/10/2015 017 Pseudophakia of right eye 03/27/20152015 Combined senile cataract 03/14/2015 017 Cataract, secondary obscuring vision 03/14/2015 04/06/2015 Dry eye 03/14/2015 06/05/2016 documented as of this encounter (statuses as of 12/13/2021) [facility] History of Past illness Narrative* Problem Noted Date Resolved Date Pseudophakia of left eye 04/10/2015 017 Pseudophakia of right eye 03/27/20152015 Combined senile cataract 03/14/2015 017 Cataract, secondary obscuring vision 03/14/2015 04/06/2015 Dry eye 03/14/2015 06/05/2016 documented as of this encounter (statuses as of 01/08/2022) [facility] History of Past illness Narrative* Problem Noted Date Resolved Date Pseudophakia of left eye 04/10/2015 017 Pseudophakia of right eye 03/27/20152015 Combined senile cataract 03/14/2015 017 Cataract, secondary obscuring vision 03/14/2015 04/06/2015 Dry eye 03/14/2015 06/05/2016 documented as of this encounter (statuses as of 03/15/2022) [facility] History of Past illness Narrative* Problem Noted Date Resolved Date Pseudophakia of left eye 04/10/2015 017 Pseudophakia of right eye 03/27/20152015 Combined senile cataract 03/14/2015 017 Cataract, secondary obscuring vision 03/14/2015 04/06/2015 Dry eye 03/14/2015 06/05/2016 documented as of this encounter (statuses as of 04/18/2022) [facility] History of Past illness Narrative* Problem Noted Date Resolved Date Pseudophakia of left eye 04/10/2015 017 Pseudophakia of right eye 03/27/20152015 Combined senile cataract 03/14/2015 017 Cataract, secondary obscuring vision 03/14/2015 04/06/2015 Dry eye 03/14/2015 06/05/2016 documented as of this encounter (statuses as of 06/06/2022) [facility] History of Past illness Narrative* Problem Noted Date Resolved Date Pseudophakia of left eye 04/10/2015 017 Pseudophakia of right eye 03/27/20152015 Combined senile cataract 03/14/2015 017 Cataract, secondary obscuring vision 03/14/2015 04/06/2015 Dry eye 03/14/2015 06/05/2016 documented as of this encounter (statuses as of 06/10/2022) [facility] History of Past illness Narrative* Problem Noted Date Resolved Date Pseudophakia of left eye 04/10/2015 017 Pseudophakia of right eye 03/27/20152015 Combined senile cataract 03/14/2015 017 Cataract, secondary obscuring vision 03/14/2015 04/06/2015 Dry eye 03/14/2015 06/05/2016 documented as of this encounter (statuses as of 06/10/2022) [facility] History of Past illness Narrative* Problem Noted Date Diagnosed Date Resolved Date Pseudophakia of left eye 04/10/2015 Pseudophakia of right eye 03/27/2015 Combined senile cataract 03/14/2015 Cataract, secondary obscuring vision 03/14/2015 04/06/2015 Dry eye 03/14/2015 06/05/2016 documented as of this encounter (statuses as of 10/09/2022) [facility] History of Past illness Narrative* Problem Noted Date Diagnosed Date Resolved Date Pseudophakia of left eye 04/10/2015 Pseudophakia of right eye 03/27/2015 Combined senile cataract 03/14/2015 Cataract, secondary obscuring vision 03/14/2015 04/06/2015 Dry eye 03/14/2015 06/05/2016 documented as of this encounter (statuses as of 11/27/2022) [facility] History of Past illness Narrative* Problem Noted Date Diagnosed Date Resolved Date Pseudophakia of left eye 04/10/2015 Pseudophakia of right eye 03/27/2015 Combined senile cataract 03/14/2015 Cataract, secondary obscuring vision 03/14/2015 04/06/2015 Dry eye 03/14/2015 06/05/2016 documented as of this encounter (statuses as of 03/02/2023) [facility] History of Past illness Narrative* Problem Noted Date Diagnosed Date Resolved Date Pseudophakia of left eye 04/10/2015 Pseudophakia of right eye 03/27/2015 Combined senile cataract 03/14/2015 Cataract, secondary obscuring vision 03/14/2015 04/06/2015 Dry eye 03/14/2015 06/05/2016 documented as of this encounter (statuses as of 03/22/2023) [facility] History of Past illness Narrative* Problem Noted Date Diagnosed Date Resolved Date Pseudophakia of left eye 04/10/2015 Pseudophakia of right eye 03/27/2015 Combined senile cataract 03/14/2015 Cataract, secondary obscuring vision 03/14/2015 04/06/2015 Dry eye 03/14/2015 06/05/2016 documented as of this encounter (statuses as of 05/20/2023) [facility] History of Past illness Narrative* Problem Noted Date Diagnosed Date Resolved Date Pseudophakia of left eye 04/10/2015 Pseudophakia of right eye 03/27/2015 Combined senile cataract 03/14/2015 Cataract, secondary obscuring vision 03/14/2015 04/06/2015 Dry eye 03/14/2015 06/05/2016 documented as of this encounter (statuses as of 05/30/2023) [facility] History of Past illness Narrative* Problem Noted Date Diagnosed Date Resolved Date Pseudophakia of left eye 04/10/2015 Pseudophakia of right eye 03/27/2015 Combined senile cataract 03/14/2015 Cataract, secondary obscuring vision 03/14/2015 04/06/2015 Dry eye 03/14/2015 06/05/2016 documented as of this encounter (statuses as of 06/06/2023) [facility] History of Past illness Narrative* Problem Noted Date Diagnosed Date Resolved Date Pseudophakia of left eye 04/10/2015 Pseudophakia of right eye 03/27/2015 Combined senile cataract 03/14/2015 Cataract, secondary obscuring vision 03/14/2015 04/06/2015 Dry eye 03/14/2015 06/05/2016 documented as of this encounter (statuses as of 06/06/2023) [facility]* Skin: Warm and dry, no lesions, no rashesEyes: PERRL, EOMI, clear scleraENMT: mucous membranes moist, no apparent injury, no lesions seenHead/Neck: Scarring on neck consistent with history of radiation therapyRespiratory/Thorax: Patent airways, CTAB, normal breath sounds with good chest expansion, thorax symmetricMusculoskeletal: ROM intact, no joint swelling, normal strengthGastrointestinal: Abdomen soft mild tenderness left upper quadrant and left periumbilical region no rebound guarding or mass noted.Extremities: Trace pretibial edema left greater than rightNeurological: alert and orientedx3, intact senses, motor, response and reflexes, normal strengthLymphatic: No significant lymphadenopathyPsychological: Appropriate mood and behaviorCardiovascular: Regular, rate and rhythm, no murmurs, 2+ equal pulses of the extremities, normal S 1and S 2Constitutional: Well developed, awake/alert/oriented x3, no distress, alert and cooperative [facility] Arth[facility] Arthropathy, unspecified, site unspecified [facility] Lung nodules Other nonspecific abnormal finding of lung field [facility] this [facility]* Diagnosis Secondary polycythemia- Primary Polycythemia, secondary Lung nodules Other nonspecific abnormal finding of lung field documented in this encounter [facility] note* Diagnosis Erythrocytosis- Primary Polycythemia, secondary 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) Malignant neoplasm of base of tongue [facility]* Diagnosis Gastroesophageal reflux disease without esophagitis- Primary Esophageal reflux Benign prostatic hyperplasia with lower urinary tract symptoms, symptom details unspecified Hyperlipidemia, unspecified hyperlipidemia type Testicular hypofunction Other testicular hypofunction Arthritis Arthropathy, unspecified, site unspecified Benign hypertension Essential hypertension, benign [facility] Diagnosis Arthritis Arthropathy, unspecified, site unspecified Testicular hypofunction Other testicular hypofunction [facility]* Diagnosis Former smoker- Primary Personal history of tobacco use, presenting hazards to health [facility]* Diagnosis 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)- Primary Malignant neoplasm of base of tongue History of radiation to head and neck region Malaise and fatigue Other malaise and fatigue documented [facility]* Diagnosis Epiretinal membrane (ERM) of left eye- Primary 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 Pseudophakia of both eyes Lens replaced by other means Essential hypertension Unspecified essential hypertension [facility]* Diagnosis Bronchitis- Primary Bronchitis, not specified as acute or chronic [facility]* Diagnosis Erythrocytosis- Primary Polycythemia, secondary 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) Malignant neoplasm of base of tongue [facility]* Diagnosis Prediabetes- Primary Other abnormal glucose Benign prostatic hyperplasia with lower urinary tract symptoms, symptom details unspecified Gastroesophageal reflux disease without esophagitis Esophageal reflux Hyperlipidemia, unspecified hyperlipidemia type Testicular hypofunction Other testicular hypofunction Arthritis Arthropathy, unspecified, site unspecified Benign hypertension Essential hypertension, benign [facility]* Diagnosis Erythrocytosis- Primary Polycythemia, secondary [facility]* Diagnosis Epiretinal membrane (ERM) of left eye- Primary Vitelliform lesion of macula/both eyes Pseudophakia of both eyes Lens replaced by other means Essential hypertension Unspecified essential hypertension [facility]* Diagnosis Erythrocytosis- Primary Polycythemia, secondary [facility]* Diagnosis Erythrocytosis- Primary Polycythemia, secondary 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) Malignant neoplasm of base of tongue [facility]* Diagnosis Migraine without aura and without status migrainosus, not intractable- Primary Xerostomia due to radiotherapy Pharyngoesophageal dysphagia Dysphagia, pharyngoesophageal phase History of tongue cancer Personal history of malignant neoplasm of tongue [facility] Diagnosis Pharyngoesophageal dysphagia Dysphagia, pharyngoesophageal phase Oropharyngeal dysphagia Dysphagia, oropharyngeal phase documented [facility] this [facility]* Diagnosis Pharyngoesophageal dysphagia- Primary Dysphagia, pharyngoesophageal phase History of tongue cancer Personal history of malignant neoplasm of tongue [facility]* Diagnosis Oropharyngeal dysphagia- Primary Dysphagia, oropharyngeal phase documented in this [facility]* Diagnosis Oropharyngeal dysphagia- Primary Dysphagia, oropharyngeal phase documented in this encounter [facility] note* Diagnosis Erythrocytosis- Primary Polycythemia, secondary documented in this encounter [facility] note* Diagnosis Former smoker- Primary Personal history of tobacco use, presenting hazards to health documented in this encounter [facility] note* Diagnosis Hyperlipidemia, unspecified hyperlipidemia type- Primary Severe protein-calorie malnutrition Other severe protein-calorie malnutrition Prostate cancer screening Special screening for malignant neoplasm of prostate Benign prostatic hyperplasia with lower urinary tract symptoms, symptom details unspecified Testicular hypofunction Other testicular hypofunction Dysphagia, unspecified type documented [facility]* Diagnosis 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)- Primary Malignant neoplasm of base of tongue Multiple lung nodules on CT Severe protein-calorie malnutrition (HCC) Other severe protein-calorie malnutrition documented in this encounter [facility] note* Diagnosis Pneumonia- Primary Pneumonia, organism unspecified Gastroesophageal reflux disease without esophagitis Esophageal reflux Hyperlipidemia Other and unspecified hyperlipidemia Essential hypertension Unspecified essential hypertension Leukocytosis Leukocytosis, unspecified Cough Fever Fever, unspecified Dry heaves Vomiting alone Elevated troponin I level Other abnormal blood chemistry Pharyngoesophageal dysphagia Dysphagia, pharyngoesophageal phase documented [facility]* Diagnosis Severe protein-calorie malnutrition- Primary Other severe protein-calorie malnutrition documented in this encounter [facility]* Diagnosis Lung nodules- Primary Other nonspecific abnormal finding of lung field Multiple lung nodules on CT History of head and neck cancer documented [facility]* Diagnosis S/P percutaneous endoscopic gastrostomy (PEG) tube placement- Primary Severe protein-calorie malnutrition Other severe protein-calorie malnutrition S/P percutaneous endoscopic gastrostomy (PEG) tube placement Essential hypertension Unspecified essential hypertension Hyperlipidemia Other and unspecified hyperlipidemia Dysphagia Dysphagia, unspecified Malignant neoplasm of base of tongue [facility]* Diagnosis Aspiration into airway- Primary S/P percutaneous endoscopic gastrostomy (PEG) tube placement Dysphagia Dysphagia, unspecified Cough Squamous cell carcinoma of tongue Malignant neoplasm of tongue, unspecified site Hyperglycemia Other abnormal glucose S/P percutaneous endoscopic gastrostomy (PEG) tube placement COPD (chronic obstructive pulmonary disease) Chronic airway obstruction, not elsewhere classified GERD (gastroesophageal reflux disease) Esophageal reflux Noncompliance Personal history of noncompliance with medical treatment, presenting hazards to health [facility]* Diagnosis Multifocal pneumonia- Primary Other dysphagia Severe protein-calorie malnutrition Other severe protein-calorie malnutrition Squamous cell carcinoma of tongue Malignant neoplasm of tongue, unspecified site Leukocytosis Leukocytosis, unspecified Hyperglycemia Other abnormal glucose GERD (gastroesophageal reflux disease) Esophageal reflux Dysphagia Dysphagia, unspecified COPD (chronic obstructive pulmonary disease) with acute bronchitis Obstructive chronic bronchitis with acute bronchitis Hypoxia Hypoxemia Other hypotension S/P percutaneous endoscopic gastrostomy (PEG) tube placement Elevated troponin I level Other abnormal blood chemistry Abnormal glucose Other abnormal glucose Elevated alkaline phosphatase level Other nonspecific abnormal serum enzyme levels [facility] Diagnosis Failure to thrive in adult- Primary Adult failure to thrive History of tongue cancer Personal history of malignant neoplasm of tongue Pharyngoesophageal dysphagia Dysphagia, pharyngoesophageal phase Xerostomia due to radiotherapy documented in this encounter [facility] note* Diagnosis Pneumonia- Primary Pneumonia, organism unspecified Bronchiectasis with acute exacerbation Hemoptysis Hemoptysis, unspecified Acute respiratory failure with hypoxia Acute respiratory failure Benign hypertension Essential hypertension, benign Hypoxia Hypoxemia Leukocytosis Leukocytosis, unspecified BPH (benign prostatic hyperplasia) Unspecified hyperplasia of prostate without urinary obstruction and other lower urinary tract symptoms (LUTS) COPD exacerbation Obstructive chronic bronchitis with exacerbation GERD (gastroesophageal reflux disease) Esophageal reflux HLD (hyperlipidemia) Other and unspecified hyperlipidemia Severe protein-calorie malnutrition Other severe protein-calorie malnutrition S/P percutaneous endoscopic gastrostomy (PEG) tube placement PNA (pneumonia) Pneumonia, organism unspecified [facility] Hospital discharge follow-up- Primary Other follow-up examination Testicular hypofunction Other testicular hypofunction [facility] Diagnosis Chronic obstructive pulmonary disease, unspecified COPD type- Primary Centrilobular emphysema Other emphysema Interstitial lung disease 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 Multiple lung nodules on CT Reactive airway disease without complication, unspecified asthma severity, unspecified whether persistent [facility] Diagnosis History of tongue cancer- Primary Personal history of malignant neoplasm of tongue Aspiration into lower respiratory tract, subsequent encounter Erythrocytosis Polycythemia, secondary S/P percutaneous endoscopic gastrostomy (PEG) tube placement (HCC) [facility] Diagnosis History of tongue cancer- Primary Personal history of malignant neoplasm of tongue S/P percutaneous endoscopic gastrostomy (PEG) tube placement (HCC) Severe protein-calorie malnutrition (HCC) Other severe protein-calorie malnutrition [facility] Diagnosis Epiretinal membrane (ERM) of left eye- Primary Vitelliform lesion of macula, Left eye Pseudophakia of both eyes Lens replaced by other means Essential hypertension Unspecified essential hypertension [facility] Diagnosis Aspiration pneumonia of both lungs- Primary Squamous cell carcinoma of tongue Malignant neoplasm of tongue, unspecified site S/P percutaneous endoscopic gastrostomy (PEG) tube placement Multiple lung nodules on CT Leukocytosis Leukocytosis, unspecified Hypoxia Hypoxemia GERD (gastroesophageal reflux disease) Esophageal reflux COPD exacerbation Obstructive chronic bronchitis with exacerbation Acute respiratory failure with hypoxia Acute respiratory failure Cough with hemoptysis Other hemoptysis Mass of pleura Swelling, mass, or lump in chest [facility] Diagnosis Severe protein-calorie malnutrition (HCC)- Primary Other severe protein-calorie malnutrition 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) Malignant neoplasm of base of tongue S/P percutaneous endoscopic gastrostomy (PEG) tube placement (HCC) [facility] Diagnosis Aspiration into lower respiratory tract, subsequent encounter- Primary History of tongue cancer Personal history of malignant neoplasm of tongue [facility] Diagnosis 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)- Primary Malignant neoplasm of base of tongue History of tongue cancer Personal history of malignant neoplasm of tongue Severe protein-calorie malnutrition (HCC) Other severe protein-calorie malnutrition S/P percutaneous endoscopic gastrostomy (PEG) tube placement (HCC) [facility] Diagnosis 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)- Primary Malignant neoplasm of base of tongue S/P percutaneous endoscopic gastrostomy (PEG) tube placement (HCC) Severe protein-calorie malnutrition (HCC) Other severe protein-calorie malnutrition [facility] Diagnosis Complication of feeding tube (HCC)- Primary Mechanical complication of gastrostomy [facility] Diagnosis 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)- Primary Malignant neoplasm of base of tongue Severe protein-calorie malnutrition (HCC) Other severe protein-calorie malnutrition [facility] Diagnosis History of tongue cancer- Primary Personal history of malignant neoplasm of tongue Lung nodules Other nonspecific abnormal finding of lung field Aspiration into lower respiratory tract, subsequent encounter Renal cyst Unspecified congenital cystic kidney disease [facility] Diagnosis 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)- Primary Malignant neoplasm of base of tongue Severe protein-calorie malnutrition (HCC) Other severe protein-calorie malnutrition S/P percutaneous endoscopic gastrostomy (PEG) tube placement (HCC) [facility] Diagnosis Fever, unspecified fever cause- Primary Localized edema Edema [facility] Diagnosis Aspiration into lower respiratory tract, subsequent encounter History of tongue cancer Personal history of malignant neoplasm of tongue Severe protein-calorie malnutrition (HCC) Other severe protein-calorie malnutrition [facility] Diagnosis Chronic obstructive pulmonary disease, unspecified COPD type Centrilobular emphysema Other emphysema Interstitial lung disease Postinflammatory pulmonary fibrosis Reactive airway disease without complication, unspecified asthma severity, unspecified whether persistent [facility] Diagnosis Chronic obstructive pulmonary disease, unspecified COPD type- Primary Centrilobular emphysema Other emphysema Interstitial lung disease Postinflammatory pulmonary fibrosis Reactive airway disease without complication, unspecified asthma severity, unspecified whether persistent [facility] Diagnosis Chronic obstructive pulmonary disease, unspecified COPD type- Primary Centrilobular emphysema Other emphysema Interstitial lung disease 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 Multiple lung nodules on CT Mass of pleura Swelling, mass, or lump in chest Aspiration pneumonia of both lower lobes, unspecified aspiration pneumonia type Reactive airway disease without complication, unspecified asthma severity, unspecified whether persistent documented in this encounter [facility] note* Diagnosis Benign hypertension- Primary Essential hypertension, benign Localized edema Edema documented in this encounter [facility] note* Diagnosis Anxiety and depression- Primary Gastroesophageal reflux disease, unspecified whether esophagitis present Hyperlipidemia, unspecified hyperlipidemia type History of tongue cancer Personal history of malignant neoplasm of tongue Pharyngoesophageal dysphagia Dysphagia, pharyngoesophageal phase Hypertension, unspecified type Xerostomia due to radiotherapy Centrilobular emphysema (HCC) Edema of both lower extremities S/P percutaneous endoscopic gastrostomy (PEG) tube placement (HCC) Migraine without aura and without status migrainosus, not intractable documented in this encounter [facility] note* Diagnosis Vomiting, unspecified vomiting type, unspecified whether nausea present- Primary S/P percutaneous endoscopic gastrostomy (PEG) tube placement (HCC) Oropharyngeal dysphagia Dysphagia, oropharyngeal phase At low risk for fall documented in this encounter [facility] note* Diagnosis 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)- Primary Malignant neoplasm of base of tongue S/P percutaneous endoscopic gastrostomy (PEG) tube placement (HCC) Severe protein-calorie malnutrition (HCC) Other severe protein-calorie malnutrition [facility]* Diagnosis Aspiration into lower respiratory tract, subsequent encounter History of tongue cancer Personal history of malignant neoplasm of tongue [facility] Diagnosis Lung nodules Other nonspecific abnormal finding of lung field Multiple lung nodules on CT Aspiration into airway, subsequent encounter History of head and neck cancer Abnormal weight loss Loss of weight [facility]* Diagnosis 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) Malignant neoplasm of base of tongue [facility] Diagnosis Multiple lung nodules on CT [facility]* Diagnosis Former smoker Personal history of tobacco use, presenting hazards to health documented in this encounter [facility] note* Diagnosis Gastroesophageal reflux disease without esophagitis Esophageal reflux Cough Fever Fever, unspecified Dry heaves Vomiting alone S/P percutaneous endoscopic gastrostomy (PEG) tube placement- Primary Severe protein-calorie malnutrition Other severe protein-calorie malnutrition Essential hypertension Unspecified essential hypertension Hyperlipidemia Other and unspecified hyperlipidemia Dysphagia Dysphagia, unspecified Malignant neoplasm of base of tongue Chronic obstructive pulmonary disease, unspecified COPD type- Primary Centrilobular emphysema Other emphysema Interstitial lung disease 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 Multiple lung nodules on CT Reactive airway disease without complication, unspecified asthma severity, unspecified whether persistent Hyperlipidemia, unspecified hyperlipidemia type Localized edema Edema Chronic obstructive pulmonary disease, unspecified COPD type- Primary Centrilobular emphysema Other emphysema Interstitial lung disease 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 Multiple lung nodules on CT Mass of pleura Swelling, mass, or lump in chest Aspiration pneumonia of both lower lobes, unspecified aspiration pneumonia type Reactive airway disease without complication, unspecified asthma severity, unspecified whether persistent [facility] Diagnosis 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)- Primary Malignant neoplasm of base of tongue documented in this encounter [facility] note* Diagnosis 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)- Primary Malignant neoplasm of base of tongue Severe protein-calorie malnutrition (HCC) Other severe protein-calorie malnutrition documented in this encounter [facility] note* Diagnosis Vomiting, unspecified vomiting type, unspecified whether nausea present- Primary S/P percutaneous endoscopic gastrostomy (PEG) tube placement (HCC) Oropharyngeal dysphagia Dysphagia, oropharyngeal phase At low risk for fall Migraine without aura and without status migrainosus, not intractable- Primary Abdominal aortic aneurysm (AAA) without rupture, unspecified part (HCC) Postnasal drip Hyperlipidemia, unspecified hyperlipidemia type Edema of both lower extremities Insomnia, unspecified type Hyponatremia Hyposmolality and/or hyponatremia Vomiting, unspecified vomiting type, unspecified whether nausea present Primary hypertension Unspecified essential hypertension Difficulty sleeping Unspecified sleep disturbance Anxiety and depression- Primary documented in this encounter [facility] note* Diagnosis Vomiting, unspecified vomiting type, unspecified whether nausea present- Primary S/P percutaneous endoscopic gastrostomy (PEG) tube placement (HCC) Oropharyngeal dysphagia Dysphagia, oropharyngeal phase At low risk for fall Migraine without aura and without status migrainosus, not intractable- Primary Abdominal aortic aneurysm (AAA) without rupture, unspecified part (HCC) Postnasal drip Hyperlipidemia, unspecified hyperlipidemia type Edema of both lower extremities Insomnia, unspecified type Hyponatremia Hyposmolality and/or hyponatremia Vomiting, unspecified vomiting type, unspecified whether nausea present Primary hypertension Unspecified essential hypertension Difficulty sleeping Unspecified sleep disturbance Left inguinal hernia- Primary Inguinal hernia without mention of obstruction or gangrene, unilateral or unspecified, (not specified as recurrent) Difficulty sleeping Unspecified sleep disturbance Anxiety and depression Constipation, unspecified constipation type documented in this encounter [facility] note* Diagnosis Vomiting, unspecified vomiting type, unspecified whether nausea present- Primary S/P percutaneous endoscopic gastrostomy (PEG) tube placement (HCC) Oropharyngeal dysphagia Dysphagia, oropharyngeal phase At low risk for fall Migraine without aura and without status migrainosus, not intractable- Primary Abdominal aortic aneurysm (AAA) without rupture, unspecified part (HCC) Postnasal drip Hyperlipidemia, unspecified hyperlipidemia type Edema of both lower extremities Insomnia, unspecified type Hyponatremia Hyposmolality and/or hyponatremia Vomiting, unspecified vomiting type, unspecified whether nausea present Primary hypertension Unspecified essential hypertension Difficulty sleeping Unspecified sleep disturbance Left inguinal hernia- Primary Inguinal hernia without mention of obstruction or gangrene, unilateral or unspecified, (not specified as recurrent) Difficulty sleeping Unspecified sleep disturbance Anxiety and depression Constipation, unspecified constipation type Left inguinal hernia- Primary Inguinal hernia without mention of obstruction or gangrene, unilateral or unspecified, (not specified as recurrent) Venous insufficiency Unspecified venous (peripheral) insufficiency Left inguinal hernia Inguinal hernia without mention of obstruction or gangrene, unilateral or unspecified, (not specified as recurrent) documented in this encounter [facility] note* Diagnosis Vomiting, unspecified vomiting type, unspecified whether nausea present- Primary S/P percutaneous endoscopic gastrostomy (PEG) tube placement (HCC) Oropharyngeal dysphagia Dysphagia, oropharyngeal phase At low risk for fall Migraine without aura and without status migrainosus, not intractable- Primary Abdominal aortic aneurysm (AAA) without rupture, unspecified part (HCC) Postnasal drip Hyperlipidemia, unspecified hyperlipidemia type Edema of both lower extremities Insomnia, unspecified type Hyponatremia Hyposmolality and/or hyponatremia Vomiting, unspecified vomiting type, unspecified whether nausea present Primary hypertension Unspecified essential hypertension Difficulty sleeping Unspecified sleep disturbance Left inguinal hernia- Primary Inguinal hernia without mention of obstruction or gangrene, unilateral or unspecified, (not specified as recurrent) Difficulty sleeping Unspecified sleep disturbance Anxiety and depression Constipation, unspecified constipation type Left inguinal hernia- Primary Inguinal hernia without mention of obstruction or gangrene, unilateral or unspecified, (not specified as recurrent) Venous insufficiency Unspecified venous (peripheral) insufficiency Left inguinal hernia Inguinal hernia without mention of obstruction or gangrene, unilateral or unspecified, (not specified as recurrent) Left inguinal hernia Inguinal hernia without mention of obstruction or gangrene, unilateral or unspecified, (not specified as recurrent) Venous insufficiency Unspecified venous (peripheral) insufficiency [facility] Diagnosis Vomiting, unspecified vomiting type, unspecified whether nausea present- Primary S/P percutaneous endoscopic gastrostomy (PEG) tube placement ([facility]) Oropharyngeal dysphagia Dysphagia, oropharyngeal phase At low risk for fall Migraine without aura and without status migrainosus, not intractable- Primary Abdominal aortic aneurysm (AAA) without rupture, unspecified part (HCC) Postnasal drip Hyperlipidemia, unspecified hyperlipidemia type Edema of both lower extremities Insomnia, unspecified type Hyponatremia Hyposmolality and/or hyponatremia Vomiting, unspecified vomiting type, unspecified whether nausea present Primary hypertension Unspecified essential hypertension Difficulty sleeping Unspecified sleep disturbance Left inguinal hernia- Primary Inguinal hernia without mention of obstruction or gangrene, unilateral or unspecified, (not specified as recurrent) Difficulty sleeping Unspecified sleep disturbance Anxiety and depression Constipation, unspecified constipation type Left inguinal hernia Inguinal hernia without mention of obstruction or gangrene, unilateral or unspecified, (not specified as recurrent) Venous insufficiency Unspecified venous (peripheral) insufficiency Pulmonary embolus, right (HCC)- Primary Other pulmonary embolism and infarction Chest pain, unspecified type Acute respiratory failure with hypoxia ([facility]) Community acquired pneumonia, unspecified laterality Acute bronchitis, unspecified organism Bronchiectasis without complication ([facility]) Pharyngoesophageal dysphagia Dysphagia, pharyngoesophageal phase History of tongue cancer Personal history of malignant neoplasm of tongue Oropharyngeal dysphagia Dysphagia, oropharyngeal phase Urinary retention Unspecified retention of urine [facility] Diagnosis Gastroesophageal reflux disease without esophagitis Esophageal reflux Cough Fever Fever, unspecified Dry heaves Vomiting alone S/P percutaneous endoscopic gastrostomy (PEG) tube placement- Primary Severe protein-calorie malnutrition Other severe protein-calorie malnutrition Essential hypertension Unspecified essential hypertension Hyperlipidemia Other and unspecified hyperlipidemia Dysphagia Dysphagia, unspecified Malignant neoplasm of base of tongue Chronic obstructive pulmonary disease, unspecified COPD type- Primary Centrilobular emphysema Other emphysema Interstitial lung disease 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 Multiple lung nodules on CT Reactive airway disease without complication, unspecified asthma severity, unspecified whether persistent Chronic obstructive pulmonary disease, unspecified COPD type- Primary Centrilobular emphysema Other emphysema Interstitial lung disease 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 Multiple lung nodules on CT Mass of pleura Swelling, mass, or lump in chest Aspiration pneumonia of both lower lobes, unspecified aspiration pneumonia type Reactive airway disease without complication, unspecified asthma severity, unspecified whether persistent Single subsegmental pulmonary embolism without acute cor pulmonale- Primary Mass of pleura Swelling, mass, or lump in chest Lung nodule Solitary pulmonary nodule Multiple lung nodules on CT Multifocal pneumonia Malignant neoplasm of base of tongue Chronic obstructive pulmonary disease, unspecified COPD type Centrilobular emphysema Other emphysema S/P percutaneous endoscopic gastrostomy (PEG) tube placement Chronic respiratory failure with hypoxia, on home oxygen therapy [facility] Diagnosis 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)- Primary Malignant neoplasm of base of tongue Severe protein-calorie malnutrition (HCC) Other severe protein-calorie malnutrition S/P percutaneous endoscopic gastrostomy (PEG) tube placement (HCC) [facility] Diagnosis Vomiting, unspecified vomiting type, unspecified whether nausea present- Primary S/P percutaneous endoscopic gastrostomy (PEG) tube placement (HCC) Oropharyngeal dysphagia Dysphagia, oropharyngeal phase At low risk for fall Migraine without aura and without status migrainosus, not intractable- Primary Abdominal aortic aneurysm (AAA) without rupture, unspecified part (HCC) Postnasal drip Hyperlipidemia, unspecified hyperlipidemia type Edema of both lower extremities Insomnia, unspecified type Hyponatremia Hyposmolality and/or hyponatremia Vomiting, unspecified vomiting type, unspecified whether nausea present Primary hypertension Unspecified essential hypertension Difficulty sleeping Unspecified sleep disturbance Left inguinal hernia- Primary Inguinal hernia without mention of obstruction or gangrene, unilateral or unspecified, (not specified as recurrent) Difficulty sleeping Unspecified sleep disturbance Anxiety and depression Constipation, unspecified constipation type Pulmonary embolus, right (HCC)- Primary Other pulmonary embolism and infarction Pulmonary lesion, right Other diseases of lung, not elsewhere classified Anxiety and depression documented in this encounter [facility] note* Diagnosis Vomiting, unspecified vomiting type, unspecified whether nausea present- Primary S/P percutaneous endoscopic gastrostomy (PEG) tube placement (HCC) Oropharyngeal dysphagia Dysphagia, oropharyngeal phase At low risk for fall Migraine without aura and without status migrainosus, not intractable- Primary Abdominal aortic aneurysm (AAA) without rupture, unspecified part (HCC) Postnasal drip Hyperlipidemia, unspecified hyperlipidemia type Edema of both lower extremities Insomnia, unspecified type Hyponatremia Hyposmolality and/or hyponatremia Vomiting, unspecified vomiting type, unspecified whether nausea present Primary hypertension Unspecified essential hypertension Difficulty sleeping Unspecified sleep disturbance Left inguinal hernia- Primary Inguinal hernia without mention of obstruction or gangrene, unilateral or unspecified, (not specified as recurrent) Difficulty sleeping Unspecified sleep disturbance Anxiety and depression Constipation, unspecified constipation type Pulmonary embolus, right (HCC)- Primary Other pulmonary embolism and infarction Pulmonary lesion, right Other diseases of lung, not elsewhere classified Anxiety and depression Left inguinal hernia- Primary Inguinal hernia without mention of obstruction or gangrene, unilateral or unspecified, (not specified as recurrent) documented in this encounter [facility] note* Diagnosis History of tongue cancer- Primary Personal history of malignant neoplasm of tongue Erythrocytosis Polycythemia, secondary documented in this encounter [facility] note* Diagnosis History of tongue cancer- Primary Personal history of malignant neoplasm of tongue documented in this encounter [facility] note* Diagnosis History of tongue cancer Personal history of malignant neoplasm of tongue Lung nodules Other nonspecific abnormal finding of lung field documented in this encounter [facility] note* Diagnosis Lung nodules- Primary Other nonspecific abnormal finding of lung field Aspiration into lower respiratory tract, subsequent encounter History of tongue cancer Personal history of malignant neoplasm of tongue documented in this encounter [facility] note* Diagnosis Nausea and vomiting, unspecified vomiting type- Primary Pharyngoesophageal dysphagia Dysphagia, pharyngoesophageal phase S/P percutaneous endoscopic gastrostomy (PEG) tube placement (Multi) History of throat cancer documented in this encounter [facility] Work Phone: Evaluation note* Diagnosis S/P percutaneous endoscopic gastrostomy (PEG) tube placement (Multi) documented in this encounter [facility] Work Phone: Evaluation note* Diagnosis Generalized weakness- Primary Nausea and vomiting, unspecified vomiting type documented in this encounter [facility] Work Phone: Evaluation note* Diagnosis Vomiting, unspecified vomiting type, unspecified whether nausea present- Primary S/P percutaneous endoscopic gastrostomy (PEG) tube placement (HCC) Oropharyngeal dysphagia Dysphagia, oropharyngeal phase At low risk for fall Migraine without aura and without status migrainosus, not intractable- Primary Abdominal aortic aneurysm (AAA) without rupture, unspecified part (HCC) Postnasal drip Hyperlipidemia, unspecified hyperlipidemia type Edema of both lower extremities Insomnia, unspecified type Hyponatremia Hyposmolality and/or hyponatremia Vomiting, unspecified vomiting type, unspecified whether nausea present Primary hypertension Unspecified essential hypertension Difficulty sleeping Unspecified sleep disturbance Left inguinal hernia- Primary Inguinal hernia without mention of obstruction or gangrene, unilateral or unspecified, (not specified as recurrent) Difficulty sleeping Unspecified sleep disturbance Anxiety and depression Constipation, unspecified constipation type Pulmonary embolus, right (HCC)- Primary Other pulmonary embolism and infarction Pulmonary lesion, right Other diseases of lung, not elsewhere classified Anxiety and depression Upper respiratory tract infection, unspecified type- Primary Anxiety and depression Edema of both lower extremities Left inguinal hernia Inguinal hernia without mention of obstruction or gangrene, unilateral or unspecified, (not specified as recurrent) S/P percutaneous endoscopic gastrostomy (PEG) tube placement (HCC) documented in this encounter [facility] note* Diagnosis 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)- Primary Malignant neoplasm of base of tongue History of tongue cancer Personal history of malignant neoplasm of tongue Severe protein-calorie malnutrition (HCC) Other severe protein-calorie malnutrition [facility] Diagnosis Gastroesophageal reflux disease without esophagitis Esophageal reflux Cough Fever Fever, unspecified Dry heaves Vomiting alone S/P percutaneous endoscopic gastrostomy (PEG) tube placement- Primary Severe protein-calorie malnutrition Other severe protein-calorie malnutrition Essential hypertension Unspecified essential hypertension Hyperlipidemia Other and unspecified hyperlipidemia Dysphagia Dysphagia, unspecified Malignant neoplasm of base of tongue Chronic obstructive pulmonary disease, unspecified COPD type- Primary Centrilobular emphysema Other emphysema Interstitial lung disease 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 Multiple lung nodules on CT Reactive airway disease without complication, unspecified asthma severity, unspecified whether persistent Chronic obstructive pulmonary disease, unspecified COPD type- Primary Centrilobular emphysema Other emphysema Interstitial lung disease 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 Multiple lung nodules on CT Mass of pleura Swelling, mass, or lump in chest Aspiration pneumonia of both lower lobes, unspecified aspiration pneumonia type Reactive airway disease without complication, unspecified asthma severity, unspecified whether persistent Single subsegmental pulmonary embolism without acute cor pulmonale- Primary Mass of pleura Swelling, mass, or lump in chest Lung nodule Solitary pulmonary nodule Multiple lung nodules on CT Multifocal pneumonia Malignant neoplasm of base of tongue Chronic obstructive pulmonary disease, unspecified COPD type Centrilobular emphysema Other emphysema S/P percutaneous endoscopic gastrostomy (PEG) tube placement Chronic respiratory failure with hypoxia, on home oxygen therapy Mass of pleura Swelling, mass, or lump in chest Lung nodule Solitary pulmonary nodule [facility] Gastroesophageal reflux disease without esophagitis Esophageal reflux Cough Fever Fever, unspecified Dry heaves Vomiting alone S/P percutaneous endoscopic gastrostomy (PEG) tube placement- Primary Severe protein-calorie malnutrition Other severe protein-calorie malnutrition Essential hypertension Unspecified essential hypertension Hyperlipidemia Other and unspecified hyperlipidemia Dysphagia Dysphagia, unspecified Malignant neoplasm of base of tongue Chronic obstructive pulmonary disease, unspecified COPD type- Primary Centrilobular emphysema Other emphysema Interstitial lung disease 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 Multiple lung nodules on CT Reactive airway disease without complication, unspecified asthma severity, unspecified whether persistent Chronic obstructive pulmonary disease, unspecified COPD type- Primary Centrilobular emphysema Other emphysema Interstitial lung disease 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 Multiple lung nodules on CT Mass of pleura Swelling, mass, or lump in chest Aspiration pneumonia of both lower lobes, unspecified aspiration pneumonia type Reactive airway disease without complication, unspecified asthma severity, unspecified whether persistent Single subsegmental pulmonary embolism without acute cor pulmonale- Primary Mass of pleura Swelling, mass, or lump in chest Lung nodule Solitary pulmonary nodule Multiple lung nodules on CT Multifocal pneumonia Malignant neoplasm of base of tongue Chronic obstructive pulmonary disease, unspecified COPD type Centrilobular emphysema Other emphysema S/P percutaneous endoscopic gastrostomy (PEG) tube placement Chronic respiratory failure with hypoxia, on home oxygen therapy Chronic obstructive pulmonary disease, unspecified COPD type- Primary Centrilobular emphysema Other emphysema Chronic respiratory failure with hypoxia, on home oxygen therapy Malignant neoplasm of base of tongue Single subsegmental pulmonary embolism without acute cor pulmonale [facility] Diagnosis Vomiting, unspecified vomiting type, unspecified whether nausea present- Primary S/P percutaneous endoscopic gastrostomy (PEG) tube placement ([facility]) Oropharyngeal dysphagia Dysphagia, oropharyngeal phase At low risk for fall Migraine without aura and without status migrainosus, not intractable- Primary Abdominal aortic aneurysm (AAA) without rupture, unspecified part (HCC) Postnasal drip Hyperlipidemia, unspecified hyperlipidemia type Edema of both lower extremities Insomnia, unspecified type Hyponatremia Hyposmolality and/or hyponatremia Vomiting, unspecified vomiting type, unspecified whether nausea present Primary hypertension Unspecified essential hypertension Difficulty sleeping Unspecified sleep disturbance Left inguinal hernia- Primary Inguinal hernia without mention of obstruction or gangrene, unilateral or unspecified, (not specified as recurrent) Difficulty sleeping Unspecified sleep disturbance Anxiety and depression Constipation, unspecified constipation type Pulmonary embolus, right (HCC)- Primary Other pulmonary embolism and infarction Pulmonary lesion, right Other diseases of lung, not elsewhere classified Anxiety and depression Upper respiratory tract infection, unspecified type- Primary Anxiety and depression Edema of both lower extremities Left inguinal hernia Inguinal hernia without mention of obstruction or gangrene, unilateral or unspecified, (not specified as recurrent) S/P percutaneous endoscopic gastrostomy (PEG) tube placement (HCC) Benign prostatic hyperplasia with urinary retention- Primary documented in this encounter [facility] note* Diagnosis Vomiting, unspecified vomiting type, unspecified whether nausea present- Primary S/P percutaneous endoscopic gastrostomy (PEG) tube placement (HCC) Oropharyngeal dysphagia Dysphagia, oropharyngeal phase At low risk for fall Migraine without aura and without status migrainosus, not intractable- Primary Abdominal aortic aneurysm (AAA) without rupture, unspecified part (HCC) Postnasal drip Hyperlipidemia, unspecified hyperlipidemia type Edema of both lower extremities Insomnia, unspecified type Hyponatremia Hyposmolality and/or hyponatremia Vomiting, unspecified vomiting type, unspecified whether nausea present Primary hypertension Unspecified essential hypertension Difficulty sleeping Unspecified sleep disturbance Left inguinal hernia- Primary Inguinal hernia without mention of obstruction or gangrene, unilateral or unspecified, (not specified as recurrent) Difficulty sleeping Unspecified sleep disturbance Anxiety and depression Constipation, unspecified constipation type Pulmonary embolus, right (HCC)- Primary Other pulmonary embolism and infarction Pulmonary lesion, right Other diseases of lung, not elsewhere classified Anxiety and depression Upper respiratory tract infection, unspecified type- Primary Anxiety and depression Edema of both lower extremities Left inguinal hernia Inguinal hernia without mention of obstruction or gangrene, unilateral or unspecified, (not specified as recurrent) S/P percutaneous endoscopic gastrostomy (PEG) tube placement (HCC) Benign prostatic hyperplasia with urinary retention- [facility] Diagnosis Disorder of stoma- Primary Digestive system complication Encounter for care related to feeding tube documented in this encounter [facility] Work Phone: Evaluation note* Diagnosis S/P percutaneous endoscopic gastrostomy (PEG) tube placement (Multi) Pharyngoesophageal dysphagia Dysphagia, pharyngoesophageal phase History of throat cancer documented in this encounter [facility] Work Phone: Evaluation note* Diagnosis Crohn's colitis, other complication (Multi)- Primary S/P percutaneous endoscopic gastrostomy (PEG) tube placement (Multi) History of throat cancer Pharyngoesophageal dysphagia Dysphagia, pharyngoesophageal phase Mild protein-calorie malnutrition (Multi) documented in this encounter [facility] Work Phone: Evaluation note* Diagnosis Vomiting, unspecified vomiting type, unspecified whether nausea present- Primary S/P percutaneous endoscopic gastrostomy (PEG) tube placement (HCC) Oropharyngeal dysphagia Dysphagia, oropharyngeal phase At low risk for fall Migraine without aura and without status migrainosus, not intractable- Primary Abdominal aortic aneurysm (AAA) without rupture, unspecified part (HCC) Postnasal drip Hyperlipidemia, unspecified hyperlipidemia type Edema of both lower extremities Insomnia, unspecified type Hyponatremia Hyposmolality and/or hyponatremia Vomiting, unspecified vomiting type, unspecified whether nausea present Primary hypertension Unspecified essential hypertension Difficulty sleeping Unspecified sleep disturbance Left inguinal hernia- Primary Inguinal hernia without mention of obstruction or gangrene, unilateral or unspecified, (not specified as recurrent) Difficulty sleeping Unspecified sleep disturbance Anxiety and depression Constipation, unspecified constipation type Pulmonary embolus, right (HCC)- Primary Other pulmonary embolism and infarction Pulmonary lesion, right Other diseases of lung, not elsewhere classified Anxiety and depression Upper respiratory tract infection, unspecified type- Primary Anxiety and depression Edema of both lower extremities Left inguinal hernia Inguinal hernia without mention of obstruction or gangrene, unilateral or unspecified, (not specified as recurrent) S/P percutaneous endoscopic gastrostomy (PEG) tube placement (HCC) Acute hypoxemic respiratory failure (HCC)- Primary documented in this encounter [facility] note* Diagnosis 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)- Primary Malignant neoplasm of base of tongue Severe protein-calorie malnutrition (HCC) Other severe protein-calorie malnutrition documented in this encounter [facility] note* Diagnosis Vomiting, unspecified vomiting type, unspecified whether nausea present- Primary S/P percutaneous endoscopic gastrostomy (PEG) tube placement ([facility]) Oropharyngeal dysphagia Dysphagia, oropharyngeal phase At low risk for fall Migraine without aura and without status migrainosus, not intractable- Primary Abdominal aortic aneurysm (AAA) without rupture, unspecified part (HCC) Postnasal drip Hyperlipidemia, unspecified hyperlipidemia type Edema of both lower extremities Insomnia, unspecified type Hyponatremia Hyposmolality and/or hyponatremia Vomiting, unspecified vomiting type, unspecified whether nausea present Primary hypertension Unspecified essential hypertension Difficulty sleeping Unspecified sleep disturbance Left inguinal hernia- Primary Inguinal hernia without mention of obstruction or gangrene, unilateral or unspecified, (not specified as recurrent) Difficulty sleeping Unspecified sleep disturbance Anxiety and depression Constipation, unspecified constipation type Pulmonary embolus, right (HCC)- Primary Other pulmonary embolism and infarction Pulmonary lesion, right Other diseases of lung, not elsewhere classified Anxiety and depression Upper respiratory tract infection, unspecified type- Primary Anxiety and depression Edema of both lower extremities Left inguinal hernia Inguinal hernia without mention of obstruction or gangrene, unilateral or unspecified, (not specified as recurrent) S/P percutaneous endoscopic gastrostomy (PEG) tube placement ([facility]) Primary osteoarthritis involving multiple joints- Primary Anxiety and depression History of aspiration pneumonia documented in this encounter [facility] note* Diagnosis Vomiting, unspecified vomiting type, unspecified whether nausea present- Primary S/P percutaneous endoscopic gastrostomy (PEG) tube placement ([facility]) Oropharyngeal dysphagia Dysphagia, oropharyngeal phase At low risk for fall Migraine without aura and without status migrainosus, not intractable- Primary Abdominal aortic aneurysm (AAA) without rupture, unspecified part (HCC) Postnasal drip Hyperlipidemia, unspecified hyperlipidemia type Edema of both lower extremities Insomnia, unspecified type Hyponatremia Hyposmolality and/or hyponatremia Vomiting, unspecified vomiting type, unspecified whether nausea present Primary hypertension Unspecified essential hypertension Difficulty sleeping Unspecified sleep disturbance Left inguinal hernia- Primary Inguinal hernia without mention of obstruction or gangrene, unilateral or unspecified, (not specified as recurrent) Difficulty sleeping Unspecified sleep disturbance Anxiety and depression Constipation, unspecified constipation type Pulmonary embolus, right (HCC)- Primary Other pulmonary embolism and infarction Pulmonary lesion, right Other diseases of lung, not elsewhere classified Anxiety and depression Upper respiratory tract infection, unspecified type- Primary Anxiety and depression Edema of both lower extremities Left inguinal hernia Inguinal hernia without mention of obstruction or gangrene, unilateral or unspecified, (not specified as recurrent) S/P percutaneous endoscopic gastrostomy (PEG) tube placement ([facility]) Primary osteoarthritis involving multiple joints- Primary Anxiety and depression History of aspiration pneumonia Primary osteoarthritis involving multiple joints [facility] Diagnosis Vomiting, unspecified vomiting type, unspecified whether nausea present- Primary S/P percutaneous endoscopic gastrostomy (PEG) tube placement ([facility]) Oropharyngeal dysphagia Dysphagia, oropharyngeal phase At low risk for fall Migraine without aura and without status migrainosus, not intractable- Primary Abdominal aortic aneurysm (AAA) without rupture, unspecified part (HCC) Postnasal drip Hyperlipidemia, unspecified hyperlipidemia type Edema of both lower extremities Insomnia, unspecified type Hyponatremia Hyposmolality and/or hyponatremia Vomiting, unspecified vomiting type, unspecified whether nausea present Primary hypertension Unspecified essential hypertension Difficulty sleeping Unspecified sleep disturbance Left inguinal hernia- Primary Inguinal hernia without mention of obstruction or gangrene, unilateral or unspecified, (not specified as recurrent) Difficulty sleeping Unspecified sleep disturbance Anxiety and depression Constipation, unspecified constipation type Pulmonary embolus, right (HCC)- Primary Other pulmonary embolism and infarction Pulmonary lesion, right Other diseases of lung, not elsewhere classified Anxiety and depression Upper respiratory tract infection, unspecified type- Primary Anxiety and depression Edema of both lower extremities Left inguinal hernia Inguinal hernia without mention of obstruction or gangrene, unilateral or unspecified, (not specified as recurrent) S/P percutaneous endoscopic gastrostomy (PEG) tube placement ([facility]) Primary osteoarthritis involving multiple joints- Primary Anxiety and depression History of aspiration pneumonia Postnasal drip [facility] Gastroesophageal reflux disease without esophagitis Esophageal reflux Cough Fever Fever, unspecified Dry heaves Vomiting alone S/P percutaneous endoscopic gastrostomy (PEG) tube placement- Primary Severe protein-calorie malnutrition Other severe protein-calorie malnutrition Essential hypertension Unspecified essential hypertension Hyperlipidemia Other and unspecified hyperlipidemia Dysphagia Dysphagia, unspecified Chronic obstructive pulmonary disease, unspecified COPD type- Primary Centrilobular emphysema Other emphysema Interstitial lung disease 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 Multiple lung nodules on CT Reactive airway disease without complication, unspecified asthma severity, unspecified whether persistent Chronic obstructive pulmonary disease, unspecified COPD type- Primary Centrilobular emphysema Other emphysema Interstitial lung disease 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 Multiple lung nodules on CT Mass of pleura Swelling, mass, or lump in chest Aspiration pneumonia of both lower lobes, unspecified aspiration pneumonia type Reactive airway disease without complication, unspecified asthma severity, unspecified whether persistent Single subsegmental pulmonary embolism without acute cor pulmonale- Primary Mass of pleura Swelling, mass, or lump in chest Lung nodule Solitary pulmonary nodule Multiple lung nodules on CT Multifocal pneumonia Malignant neoplasm of base of tongue Chronic obstructive pulmonary disease, unspecified COPD type Centrilobular emphysema Other emphysema S/P percutaneous endoscopic gastrostomy (PEG) tube placement Chronic respiratory failure with hypoxia, on home oxygen therapy Chronic obstructive pulmonary disease, unspecified COPD type- Primary Centrilobular emphysema Other emphysema Chronic respiratory failure with hypoxia, on home oxygen therapy Malignant neoplasm of base of tongue Single subsegmental pulmonary embolism without acute cor pulmonale Pneumonia of both lower lobes due to infectious organism- Primary Pneumonia of both lungs due to infectious organism, unspecified part of lung Hypoxemia Pharyngoesophageal dysphagia Dysphagia, pharyngoesophageal phase Xerostomia due to radiotherapy Presence of externally removable percutaneous endoscopic gastrostomy (PEG) tube Hyperglycemia Other abnormal glucose LRTI (lower respiratory tract infection) Other diseases of respiratory system, not elsewhere classified Acute respiratory failure with hypoxia Acute respiratory failure Dependence on nocturnal oxygen therapy COPD exacerbation Obstructive chronic bronchitis with exacerbation Dysphagia Dysphagia, unspecified Gastroesophageal reflux disease Esophageal reflux 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 Malignant neoplasm of tongue, unspecified site S/P percutaneous endoscopic gastrostomy (PEG) tube placement Hypernatremia Hyperosmolality and/or hypernatremia Elevated troponin Other abnormal blood chemistry Pulmonary lesion, right Other diseases of lung, not elsewhere classified History of pulmonary embolism Personal history of pulmonary embolism Oral prerna Candidiasis of mouth [facility] Diagnosis Vomiting, unspecified vomiting type, unspecified whether nausea present- Primary S/P percutaneous endoscopic gastrostomy (PEG) tube placement (HCC) Oropharyngeal dysphagia Dysphagia, oropharyngeal phase At low risk for fall Migraine without aura and without status migrainosus, not intractable- Primary Abdominal aortic aneurysm (AAA) without rupture, unspecified part (HCC) Postnasal drip Hyperlipidemia, unspecified hyperlipidemia type Edema of both lower extremities Insomnia, unspecified type Hyponatremia Hyposmolality and/or hyponatremia Vomiting, unspecified vomiting type, unspecified whether nausea present Primary hypertension Unspecified essential hypertension Difficulty sleeping Unspecified sleep disturbance Left inguinal hernia- Primary Inguinal hernia without mention of obstruction or gangrene, unilateral or unspecified, (not specified as recurrent) Difficulty sleeping Unspecified sleep disturbance Anxiety and depression Constipation, unspecified constipation type Pulmonary embolus, right (HCC)- Primary Other pulmonary embolism and infarction Pulmonary lesion, right Other diseases of lung, not elsewhere classified Anxiety and depression Upper respiratory tract infection, unspecified type- Primary Anxiety and depression Edema of both lower extremities Left inguinal hernia Inguinal hernia without mention of obstruction or gangrene, unilateral or unspecified, (not specified as recurrent) S/P percutaneous endoscopic gastrostomy (PEG) tube placement (HCC) Primary osteoarthritis involving multiple joints- Primary Anxiety and depression History of aspiration pneumonia Hospital discharge follow-up- Primary Other follow-up examination Pneumonia of both lower lobes due to infectious organism Cough, unspecified type Oropharyngeal dysphagia Dysphagia, oropharyngeal phase Gastroesophageal reflux disease, unspecified whether esophagitis present History of tongue cancer Personal history of malignant neoplasm of tongue Centrilobular emphysema (HCC) S/P percutaneous endoscopic gastrostomy (PEG) tube placement (HCC) documented in this encounter [facility] note* Diagnosis Vomiting, unspecified vomiting type, unspecified whether nausea present- Primary S/P percutaneous endoscopic gastrostomy (PEG) tube placement (HCC) Oropharyngeal dysphagia Dysphagia, oropharyngeal phase At low risk for fall Migraine without aura and without status migrainosus, not intractable- Primary Abdominal aortic aneurysm (AAA) without rupture, unspecified part (HCC) Postnasal drip Hyperlipidemia, unspecified hyperlipidemia type Edema of both lower extremities Insomnia, unspecified type Hyponatremia Hyposmolality and/or hyponatremia Vomiting, unspecified vomiting type, unspecified whether nausea present Primary hypertension Unspecified essential hypertension Difficulty sleeping Unspecified sleep disturbance Left inguinal hernia- Primary Inguinal hernia without mention of obstruction or gangrene, unilateral or unspecified, (not specified as recurrent) Difficulty sleeping Unspecified sleep disturbance Anxiety and depression Constipation, unspecified constipation type Pulmonary embolus, right (HCC)- Primary Other pulmonary embolism and infarction Pulmonary lesion, right Other diseases of lung, not elsewhere classified Anxiety and depression Upper respiratory tract infection, unspecified type- Primary Anxiety and depression Edema of both lower extremities Left inguinal hernia Inguinal hernia without mention of obstruction or gangrene, unilateral or unspecified, (not specified as recurrent) S/P percutaneous endoscopic gastrostomy (PEG) tube placement (HCC) Primary osteoarthritis involving multiple joints- Primary Anxiety and depression History of aspiration pneumonia Hospital discharge follow-up- Primary Other follow-up examination Pneumonia of both lower lobes due to infectious organism Cough, unspecified type Oropharyngeal dysphagia Dysphagia, oropharyngeal phase Gastroesophageal reflux disease, unspecified whether esophagitis present History of tongue cancer Personal history of malignant neoplasm of tongue Centrilobular emphysema (HCC) S/P percutaneous endoscopic gastrostomy (PEG) tube placement (HCC) Pneumonia of both lower lobes due to infectious organism Cough, unspecified type documented in this encounter [facility] note* Diagnosis Gastroesophageal reflux disease without esophagitis Esophageal reflux Cough Fever Fever, unspecified Dry heaves Vomiting alone S/P percutaneous endoscopic gastrostomy (PEG) tube placement- Primary Severe protein-calorie malnutrition Other severe protein-calorie malnutrition Essential hypertension Unspecified essential hypertension Hyperlipidemia Other and unspecified hyperlipidemia Dysphagia Dysphagia, unspecified Chronic obstructive pulmonary disease, unspecified COPD type- Primary Centrilobular emphysema Other emphysema Interstitial lung disease 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 Multiple lung nodules on CT Reactive airway disease without complication, unspecified asthma severity, unspecified whether persistent Chronic obstructive pulmonary disease, unspecified COPD type- Primary Centrilobular emphysema Other emphysema Interstitial lung disease 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 Multiple lung nodules on CT Mass of pleura Swelling, mass, or lump in chest Aspiration pneumonia of both lower lobes, unspecified aspiration pneumonia type Reactive airway disease without complication, unspecified asthma severity, unspecified whether persistent Single subsegmental pulmonary embolism without acute cor pulmonale- Primary Mass of pleura Swelling, mass, or lump in chest Lung nodule Solitary pulmonary nodule Multiple lung nodules on CT Multifocal pneumonia Malignant neoplasm of base of tongue Chronic obstructive pulmonary disease, unspecified COPD type Centrilobular emphysema Other emphysema S/P percutaneous endoscopic gastrostomy (PEG) tube placement Chronic respiratory failure with hypoxia, on home oxygen therapy Chronic obstructive pulmonary disease, unspecified COPD type- Primary Centrilobular emphysema Other emphysema Chronic respiratory failure with hypoxia, on home oxygen therapy Malignant neoplasm of base of tongue Single subsegmental pulmonary embolism without acute cor pulmonale Aspiration pneumonia of both lower lobes, unspecified aspiration pneumonia type- Primary Multiple lung nodules on CT Malignant neoplasm of base of tongue Chronic respiratory failure with hypoxia, on home oxygen therapy Centrilobular emphysema Other emphysema Chronic obstructive pulmonary disease, unspecified COPD type [facility] Diagnosis Gastroesophageal reflux disease without esophagitis Esophageal reflux Cough Fever Fever, unspecified Dry heaves Vomiting alone S/P percutaneous endoscopic gastrostomy (PEG) tube placement- Primary Severe protein-calorie malnutrition Other severe protein-calorie malnutrition Chronic obstructive pulmonary disease, unspecified COPD type- Primary Centrilobular emphysema Other emphysema Interstitial lung disease 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 Multiple lung nodules on CT Reactive airway disease without complication, unspecified asthma severity, unspecified whether persistent Chronic obstructive pulmonary disease, unspecified COPD type- Primary Centrilobular emphysema Other emphysema Interstitial lung disease 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 Multiple lung nodules on CT Mass of pleura Swelling, mass, or lump in chest Aspiration pneumonia of both lower lobes, unspecified aspiration pneumonia type Reactive airway disease without complication, unspecified asthma severity, unspecified whether persistent Single subsegmental pulmonary embolism without acute cor pulmonale- Primary Mass of pleura Swelling, mass, or lump in chest Lung nodule Solitary pulmonary nodule Multiple lung nodules on CT Multifocal pneumonia Malignant neoplasm of base of tongue Chronic obstructive pulmonary disease, unspecified COPD type Centrilobular emphysema Other emphysema S/P percutaneous endoscopic gastrostomy (PEG) tube placement Chronic respiratory failure with hypoxia, on home oxygen therapy Chronic obstructive pulmonary disease, unspecified COPD type- Primary Centrilobular emphysema Other emphysema Chronic respiratory failure with hypoxia, on home oxygen therapy Malignant neoplasm of base of tongue Single subsegmental pulmonary embolism without acute cor pulmonale Aspiration pneumonia of both lower lobes, unspecified aspiration pneumonia type- Primary Multiple lung nodules on CT Malignant neoplasm of base of tongue Chronic respiratory failure with hypoxia, on home oxygen therapy Centrilobular emphysema Other emphysema Chronic obstructive pulmonary disease, unspecified COPD type Elevated troponin- Primary Other abnormal blood chemistry Nausea Nausea alone NSTEMI (non-ST elevated myocardial infarction) Acute myocardial infarction, subendocardial infarction, episode of care unspecified HLD (hyperlipidemia) Other and unspecified hyperlipidemia GERD (gastroesophageal reflux disease) Esophageal reflux Dysphagia Dysphagia, unspecified Leukocytosis Leukocytosis, unspecified Nausea & vomiting Nausea with vomiting Essential hypertension Unspecified essential hypertension Lactate blood increase Other nonspecific abnormal serum enzyme levels [facility] Multiple lung nodules on CT- Primary Aspiration into lower respiratory tract, subsequent encounter History of tongue cancer Personal history of malignant neoplasm of tongue [facility] Diagnosis Severe protein-calorie malnutrition (HCC)- Primary Other severe protein-calorie malnutrition 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) Malignant neoplasm of base of tongue History of tongue cancer Personal history of malignant neoplasm of tongue [facility] Diagnosis Vomiting, unspecified vomiting type, unspecified whether nausea present- Primary S/P percutaneous endoscopic gastrostomy (PEG) tube placement ([facility]) Oropharyngeal dysphagia Dysphagia, oropharyngeal phase At low risk for fall Migraine without aura and without status migrainosus, not intractable- Primary Abdominal aortic aneurysm (AAA) without rupture, unspecified part ([facility]) Postnasal drip Hyperlipidemia, unspecified hyperlipidemia type Edema of both lower extremities Insomnia, unspecified type Hyponatremia Hyposmolality and/or hyponatremia Vomiting, unspecified vomiting type, unspecified whether nausea present Primary hypertension Unspecified essential hypertension Difficulty sleeping Unspecified sleep disturbance Left inguinal hernia- Primary Inguinal hernia without mention of obstruction or gangrene, unilateral or unspecified, (not specified as recurrent) Difficulty sleeping Unspecified sleep disturbance Anxiety and depression Constipation, unspecified constipation type Pulmonary embolus, right (HCC)- Primary Other pulmonary embolism and infarction Pulmonary lesion, right Other diseases of lung, not elsewhere classified Anxiety and depression Upper respiratory tract infection, unspecified type- Primary Anxiety and depression Edema of both lower extremities Left inguinal hernia Inguinal hernia without mention of obstruction or gangrene, unilateral or unspecified, (not specified as recurrent) S/P percutaneous endoscopic gastrostomy (PEG) tube placement ([facility]) Primary osteoarthritis involving multiple joints- Primary Anxiety and depression History of aspiration pneumonia Hospital discharge follow-up- Primary Other follow-up examination Acute on chronic respiratory failure with hypoxia (HCC) Cough, unspecified type History of tongue cancer Personal history of malignant neoplasm of tongue Centrilobular emphysema (HCC) S/P percutaneous endoscopic gastrostomy (PEG) tube placement (HCC) [facility] Severe protein-calorie malnutrition (HCC)- Primary Other severe protein-calorie malnutrition 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) Malignant neoplasm of base of tongue documented in this encounter [facility] note* Diagnosis Multiple lung nodules on CT Aspiration into lower respiratory tract, subsequent encounter documented in this encounter [facility] note* Diagnosis Vomiting, unspecified vomiting type, unspecified whether nausea present- Primary S/P percutaneous endoscopic gastrostomy (PEG) tube placement (HCC) Oropharyngeal dysphagia Dysphagia, oropharyngeal phase At low risk for fall Migraine without aura and without status migrainosus, not intractable- Primary Abdominal aortic aneurysm (AAA) without rupture, unspecified part (HCC) Postnasal drip Hyperlipidemia, unspecified hyperlipidemia type Edema of both lower extremities Insomnia, unspecified type Hyponatremia Hyposmolality and/or hyponatremia Vomiting, unspecified vomiting type, unspecified whether nausea present Primary hypertension Unspecified essential hypertension Difficulty sleeping Unspecified sleep disturbance Left inguinal hernia- Primary Inguinal hernia without mention of obstruction or gangrene, unilateral or unspecified, (not specified as recurrent) Difficulty sleeping Unspecified sleep disturbance Anxiety and depression Constipation, unspecified constipation type Pulmonary embolus, right (HCC)- Primary Other pulmonary embolism and infarction Pulmonary lesion, right Other diseases of lung, not elsewhere classified Anxiety and depression Upper respiratory tract infection, unspecified type- Primary Anxiety and depression Edema of both lower extremities Left inguinal hernia Inguinal hernia without mention of obstruction or gangrene, unilateral or unspecified, (not specified as recurrent) S/P percutaneous endoscopic gastrostomy (PEG) tube placement (HCC) Primary osteoarthritis involving multiple joints- Primary Anxiety and depression History of aspiration pneumonia Chronic respiratory failure with hypoxia, on home oxygen therapy (HCC)- Primary [facility] Diagnosis S/P percutaneous endoscopic gastrostomy (PEG) tube placement (Multi)- Primary Pharyngoesophageal dysphagia Dysphagia, pharyngoesophageal phase History of throat cancer documented in this encounter [facility] Work Phone: Evaluation note* Diagnosis Severe protein-calorie malnutrition (HCC)- Primary Other severe protein-calorie malnutrition 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) Malignant neoplasm of base of tongue Multiple lung nodules on CT documented in this encounter [facility] note* Diagnosis Vomiting, unspecified vomiting type, unspecified whether nausea present- Primary S/P percutaneous endoscopic gastrostomy (PEG) tube placement (HCC) Oropharyngeal dysphagia Dysphagia, oropharyngeal phase At low risk for fall Migraine without aura and without status migrainosus, not intractable- Primary Abdominal aortic aneurysm (AAA) without rupture, unspecified part (HCC) Postnasal drip Hyperlipidemia, unspecified hyperlipidemia type Edema of both lower extremities Insomnia, unspecified type Hyponatremia Hyposmolality and/or hyponatremia Vomiting, unspecified vomiting type, unspecified whether nausea present Primary hypertension Unspecified essential hypertension Difficulty sleeping Unspecified sleep disturbance Left inguinal hernia- Primary Inguinal hernia without mention of obstruction or gangrene, unilateral or unspecified, (not specified as recurrent) Difficulty sleeping Unspecified sleep disturbance Anxiety and depression Constipation, unspecified constipation type Pulmonary embolus, right (HCC)- Primary Other pulmonary embolism and infarction Pulmonary lesion, right Other diseases of lung, not elsewhere classified Anxiety and depression Upper respiratory tract infection, unspecified type- Primary Anxiety and depression Edema of both lower extremities Left inguinal hernia Inguinal hernia without mention of obstruction or gangrene, unilateral or unspecified, (not specified as recurrent) S/P percutaneous endoscopic gastrostomy (PEG) tube placement (HCC) Primary osteoarthritis involving multiple joints- Primary Anxiety and depression History of aspiration pneumonia Acute conjunctivitis of left eye, unspecified acute conjunctivitis type documented in this encounter [facility] note* Diagnosis Bronchiectasis without complication (HCC)- Primary Bronchiectasis without acute exacerbation Moderate COPD (chronic obstructive pulmonary disease) (HCC) Chronic airway obstruction, not elsewhere classified Aspiration into airway, subsequent encounter History of tongue cancer Personal history of malignant neoplasm of tongue Former smoker Personal history of tobacco use, presenting hazards to health documented in this encounter [facility] note* Diagnosis Vomiting, unspecified vomiting type, unspecified whether nausea present- Primary S/P percutaneous endoscopic gastrostomy (PEG) tube placement (HCC) Oropharyngeal dysphagia Dysphagia, oropharyngeal phase At low risk for fall Migraine without aura and without status migrainosus, not intractable- Primary Abdominal aortic aneurysm (AAA) without rupture, unspecified part (HCC) Postnasal drip Hyperlipidemia, unspecified hyperlipidemia type Edema of both lower extremities Insomnia, unspecified type Hyponatremia Hyposmolality and/or hyponatremia Vomiting, unspecified vomiting type, unspecified whether nausea present Primary hypertension Unspecified essential hypertension Difficulty sleeping Unspecified sleep disturbance Left inguinal hernia- Primary Inguinal hernia without mention of obstruction or gangrene, unilateral or unspecified, (not specified as recurrent) Difficulty sleeping Unspecified sleep disturbance Anxiety and depression Constipation, unspecified constipation type Pulmonary embolus, right (HCC)- Primary Other pulmonary embolism and infarction Pulmonary lesion, right Other diseases of lung, not elsewhere classified Anxiety and depression Upper respiratory tract infection, unspecified type- Primary Anxiety and depression Edema of both lower extremities Left inguinal hernia Inguinal hernia without mention of obstruction or gangrene, unilateral or unspecified, (not specified as recurrent) S/P percutaneous endoscopic gastrostomy (PEG) tube placement ([facility]) Primary osteoarthritis involving multiple joints- Primary Anxiety and depression History of aspiration pneumonia Acute conjunctivitis of left eye, unspecified acute conjunctivitis type- Primary Respiratory crackles of both lungs Bilateral leg edema Edema Respiratory crackles of both lungs documented in this encounter [facility] note* Diagnosis Meibomian gland dysfunction (MGD) of upper and lower lids of both eyes- Primary Dry eye syndrome of both eyes Epiretinal membrane (ERM) of left eye Vitelliform lesion of macula, Left eye Pseudophakia of both eyes Lens replaced by other means documented in this encounter [facility] note* Diagnosis S/P percutaneous endoscopic gastrostomy (PEG) tube placement ([facility])- Primary documented in this encounter [facility] Work Phone: Evaluation note* Diagnosis Dry eye syndrome of both eyes- Primary Meibomian gland dysfunction (MGD) of upper and lower lids of both eyes Epiretinal membrane (ERM) of left eye Vitelliform lesion of macula, Left eye Pseudophakia of both eyes Lens replaced by other means documented in this encounter [facility] note* Diagnosis Vomiting, unspecified vomiting type, unspecified whether nausea present- Primary S/P percutaneous endoscopic gastrostomy (PEG) tube placement (HCC) Oropharyngeal dysphagia Dysphagia, oropharyngeal phase At low risk for fall Migraine without aura and without status migrainosus, not intractable- Primary Abdominal aortic aneurysm (AAA) without rupture, unspecified part (HCC) Postnasal drip Hyperlipidemia, unspecified hyperlipidemia type Edema of both lower extremities Insomnia, unspecified type Hyponatremia Hyposmolality and/or hyponatremia Vomiting, unspecified vomiting type, unspecified whether nausea present Primary hypertension Unspecified essential hypertension Difficulty sleeping Unspecified sleep disturbance Left inguinal hernia- Primary Inguinal hernia without mention of obstruction or gangrene, unilateral or unspecified, (not specified as recurrent) Difficulty sleeping Unspecified sleep disturbance Anxiety and depression Constipation, unspecified constipation type Pulmonary embolus, right (HCC)- Primary Other pulmonary embolism and infarction Pulmonary lesion, right Other diseases of lung, not elsewhere classified Anxiety and depression Upper respiratory tract infection, unspecified type- Primary Anxiety and depression Edema of both lower extremities Left inguinal hernia Inguinal hernia without mention of obstruction or gangrene, unilateral or unspecified, (not specified as recurrent) S/P percutaneous endoscopic gastrostomy (PEG) tube placement ([facility]) Primary osteoarthritis involving multiple joints- Primary Anxiety and depression History of aspiration pneumonia Acute conjunctivitis of left eye, unspecified acute conjunctivitis type- Primary Respiratory crackles of both lungs Bilateral leg edema Edema Anxiety and depression [facility] Diagnosis Vomiting, unspecified vomiting type, unspecified whether nausea present- Primary S/P percutaneous endoscopic gastrostomy (PEG) tube placement ([facility]) Oropharyngeal dysphagia Dysphagia, oropharyngeal phase At low risk for fall Migraine without aura and without status migrainosus, not intractable- Primary Abdominal aortic aneurysm (AAA) without rupture, unspecified part (HCC) Postnasal drip Hyperlipidemia, unspecified hyperlipidemia type Edema of both lower extremities Insomnia, unspecified type Hyponatremia Hyposmolality and/or hyponatremia Vomiting, unspecified vomiting type, unspecified whether nausea present Primary hypertension Unspecified essential hypertension Difficulty sleeping Unspecified sleep disturbance Left inguinal hernia- Primary Inguinal hernia without mention of obstruction or gangrene, unilateral or unspecified, (not specified as recurrent) Difficulty sleeping Unspecified sleep disturbance Anxiety and depression Constipation, unspecified constipation type Pulmonary embolus, right- Primary Other pulmonary embolism and infarction Pulmonary lesion, right Other diseases of lung, not elsewhere classified Anxiety and depression Upper respiratory tract infection, unspecified type- Primary Anxiety and depression Edema of both lower extremities Left inguinal hernia Inguinal hernia without mention of obstruction or gangrene, unilateral or unspecified, (not specified as recurrent) S/P percutaneous endoscopic gastrostomy (PEG) tube placement ([facility]) Primary osteoarthritis involving multiple joints- Primary Anxiety and depression History of aspiration pneumonia Acute conjunctivitis of left eye, unspecified acute conjunctivitis type- Primary Respiratory crackles of both lungs Bilateral leg edema Edema Viral syndrome- Primary Unspecified viral infection, in conditions classified elsewhere and of unspecified site Cough, unspecified type [facility] Diagnosis Vomiting, unspecified vomiting type, unspecified whether nausea present- Primary S/P percutaneous endoscopic gastrostomy (PEG) tube placement (HCC) Oropharyngeal dysphagia Dysphagia, oropharyngeal phase At low risk for fall Migraine without aura and without status migrainosus, not intractable- Primary Abdominal aortic aneurysm (AAA) without rupture, unspecified part (HCC) Postnasal drip Hyperlipidemia, unspecified hyperlipidemia type Edema of both lower extremities Insomnia, unspecified type Hyponatremia Hyposmolality and/or hyponatremia Vomiting, unspecified vomiting type, unspecified whether nausea present Primary hypertension Unspecified essential hypertension Difficulty sleeping Unspecified sleep disturbance Left inguinal hernia- Primary Inguinal hernia without mention of obstruction or gangrene, unilateral or unspecified, (not specified as recurrent) Difficulty sleeping Unspecified sleep disturbance Anxiety and depression Constipation, unspecified constipation type Pulmonary embolus, right- Primary Other pulmonary embolism and infarction Pulmonary lesion, right Other diseases of lung, not elsewhere classified Anxiety and depression Upper respiratory tract infection, unspecified type- Primary Anxiety and depression Edema of both lower extremities Left inguinal hernia Inguinal hernia without mention of obstruction or gangrene, unilateral or unspecified, (not specified as recurrent) S/P percutaneous endoscopic gastrostomy (PEG) tube placement (HCC) Primary osteoarthritis involving multiple joints- Primary Anxiety and depression History of aspiration pneumonia Acute conjunctivitis of left eye, unspecified acute conjunctivitis type- Primary Respiratory crackles of both lungs Bilateral leg edema Edema Memory loss- Primary Abdominal aortic aneurysm (AAA) without rupture, unspecified part (HCC) Chronic respiratory failure with hypoxia, on home oxygen therapy (HCC) [facility] Diagnosis Vomiting, unspecified vomiting type, unspecified whether nausea present- Primary S/P percutaneous endoscopic gastrostomy (PEG) tube placement (HCC) Oropharyngeal dysphagia Dysphagia, oropharyngeal phase At low risk for fall Migraine without aura and without status migrainosus, not intractable- Primary Abdominal aortic aneurysm (AAA) without rupture, unspecified part (HCC) Postnasal drip Hyperlipidemia, unspecified hyperlipidemia type Edema of both lower extremities Insomnia, unspecified type Hyponatremia Hyposmolality and/or hyponatremia Vomiting, unspecified vomiting type, unspecified whether nausea present Primary hypertension Unspecified essential hypertension Difficulty sleeping Unspecified sleep disturbance Left inguinal hernia- Primary Inguinal hernia without mention of obstruction or gangrene, unilateral or unspecified, (not specified as recurrent) Difficulty sleeping Unspecified sleep disturbance Anxiety and depression Constipation, unspecified constipation type Pulmonary embolus, right- Primary Other pulmonary embolism and infarction Pulmonary lesion, right Other diseases of lung, not elsewhere classified Anxiety and depression Upper respiratory tract infection, unspecified type- Primary Anxiety and depression Edema of both lower extremities Left inguinal hernia Inguinal hernia without mention of obstruction or gangrene, unilateral or unspecified, (not specified as recurrent) S/P percutaneous endoscopic gastrostomy (PEG) tube placement (HCC) Primary osteoarthritis involving multiple joints- Primary Anxiety and depression History of aspiration pneumonia Acute conjunctivitis of left eye, unspecified acute conjunctivitis type- Primary Respiratory crackles of both lungs Bilateral leg edema Edema Memory loss- Primary Abdominal aortic aneurysm (AAA) without rupture, unspecified part (HCC) Chronic respiratory failure with hypoxia, on home oxygen therapy ([facility]) Mild cognitive impairment- Primary Mild cognitive impairment, so stated [facility] Diagnosis Vomiting, unspecified vomiting type, unspecified whether nausea present- Primary S/P percutaneous endoscopic gastrostomy (PEG) tube placement ([facility]) Oropharyngeal dysphagia Dysphagia, oropharyngeal phase At low risk for fall Migraine without aura and without status migrainosus, not intractable- Primary Abdominal aortic aneurysm (AAA) without rupture, unspecified part (HCC) Postnasal drip Hyperlipidemia, unspecified hyperlipidemia type Edema of both lower extremities Insomnia, unspecified type Hyponatremia Hyposmolality and/or hyponatremia Vomiting, unspecified vomiting type, unspecified whether nausea present Primary hypertension Unspecified essential hypertension Difficulty sleeping Unspecified sleep disturbance Left inguinal hernia- Primary Inguinal hernia without mention of obstruction or gangrene, unilateral or unspecified, (not specified as recurrent) Difficulty sleeping Unspecified sleep disturbance Anxiety and depression Constipation, unspecified constipation type Pulmonary embolus, right- Primary Other pulmonary embolism and infarction Pulmonary lesion, right Other diseases of lung, not elsewhere classified Anxiety and depression Upper respiratory tract infection, unspecified type- Primary Anxiety and depression Edema of both lower extremities Left inguinal hernia Inguinal hernia without mention of obstruction or gangrene, unilateral or unspecified, (not specified as recurrent) S/P percutaneous endoscopic gastrostomy (PEG) tube placement (HCC) Primary osteoarthritis involving multiple joints- Primary Anxiety and depression History of aspiration pneumonia Acute conjunctivitis of left eye, unspecified acute conjunctivitis type- Primary Respiratory crackles of both lungs Bilateral leg edema Edema Memory loss- Primary Abdominal aortic aneurysm (AAA) without rupture, unspecified part (HCC) Chronic respiratory failure with hypoxia, on home oxygen therapy (HCC) Septic shock (HCC)- Primary Septic shock (HCC) Pneumonia of right lung due to infectious organism, unspecified part of lung Acute hypoxemic respiratory failure (HCC) Memory loss Respiratory crackles of both lungs Chronic respiratory failure with hypoxia, on home oxygen therapy (HCC) History of aspiration pneumonia Pulmonary lesion, right Other diseases of lung, not elsewhere classified Venous insufficiency Unspecified venous (peripheral) insufficiency Left inguinal hernia Inguinal hernia without mention of obstruction or gangrene, unilateral or unspecified, (not specified as recurrent) Difficulty sleeping Unspecified sleep disturbance Hyponatremia Hyposmolality and/or hyponatremia Postnasal drip Migraine without aura and without status migrainosus, not intractable Anxiety and depression S/P percutaneous endoscopic gastrostomy (PEG) tube placement (HCC) Centrilobular emphysema (HCC) Bilateral leg edema Edema Secondary polycythemia Polycythemia, secondary Oropharyngeal dysphagia Dysphagia, oropharyngeal phase Xerostomia due to radiotherapy Pharyngoesophageal dysphagia Dysphagia, pharyngoesophageal phase History of tongue cancer Personal history of malignant neoplasm of tongue [facility] Diagnosis S/P percutaneous endoscopic gastrostomy (PEG) tube placement (Multi) Pharyngoesophageal dysphagia Dysphagia, pharyngoesophageal phase History of throat cancer documented in this encounter [facility] Work Phone: Evaluation note* Diagnosis S/P percutaneous endoscopic gastrostomy (PEG) tube placement (Multi) documented in this encounter [facility] Work Phone: Evaluation note* Diagnosis Vomiting, unspecified vomiting type, unspecified whether nausea present- Primary S/P percutaneous endoscopic gastrostomy (PEG) tube placement (HCC) Oropharyngeal dysphagia Dysphagia, oropharyngeal phase At low risk for fall Migraine without aura and without status migrainosus, not intractable- Primary Abdominal aortic aneurysm (AAA) without rupture, unspecified part (HCC) Postnasal drip Hyperlipidemia, unspecified hyperlipidemia type Edema of both lower extremities Insomnia, unspecified type Hyponatremia Hyposmolality and/or hyponatremia Vomiting, unspecified vomiting type, unspecified whether nausea present Primary hypertension Unspecified essential hypertension Difficulty sleeping Unspecified sleep disturbance Left inguinal hernia- Primary Inguinal hernia without mention of obstruction or gangrene, unilateral or unspecified, (not specified as recurrent) Difficulty sleeping Unspecified sleep disturbance Anxiety and depression Constipation, unspecified constipation type Pulmonary embolus, right- Primary Other pulmonary embolism and infarction Pulmonary lesion, right Other diseases of lung, not elsewhere classified Anxiety and depression Upper respiratory tract infection, unspecified type- Primary Anxiety and depression Edema of both lower extremities Left inguinal hernia Inguinal hernia without mention of obstruction or gangrene, unilateral or unspecified, (not specified as recurrent) S/P percutaneous endoscopic gastrostomy (PEG) tube placement (HCC) Primary osteoarthritis involving multiple joints- Primary Anxiety and depression History of aspiration pneumonia Acute conjunctivitis of left eye, unspecified acute conjunctivitis type- Primary Respiratory crackles of both lungs Bilateral leg edema Edema Memory loss- Primary Abdominal aortic aneurysm (AAA) without rupture, unspecified part (HCC) Chronic respiratory failure with hypoxia, on home oxygen therapy (HCC) Sepsis (HCC)- Primary Sepsis, due to unspecified organism, unspecified whether acute organ dysfunction present ([facility]) documented in this encounter [facility] Discharge instructions* Activity:activity as tolerated. May not return to school/work until follow-up visit with pcp Instructions: covid 19. * Labs 1 (Modify Template):Lab Test(s): H&HDate To Be Drawn: 04/09/21Call Results To: Dr. Jaimes * Additional Orders:Additional Instructions: Follow up with PCP within 1 week of discharge: infrarenal aorta aneurysmal dilation 3.1 x 2.8 cmAlso please follow-up with your primary care physician to discuss a formal sleep study and a pulmonary function test.Follow up with gastroenterology within 1 week of dischargeResume home medicationsNew medications:Levaquin 500 mg tablet daily for 9 daysFlagyl 500 mg every 8 hours for 9 daysLactobacillus dailyZinc dailyVitamin C dailyVitamin D dailyHave H&H bloodwork drawn April 09, 2021 * Call Provider If:Breathing faster than normal. Breathing harder than normal or having retractions. Fever of 100.4 F (38 C) or higher. Temperature is greater than 102 degrees. Chills. Drinking less than normal. Not being able to go 4-6 hours between albuterol treatments. Urinating less than normal, over 1 day. Urinating less than 4 times per day. Acting very sleepy and difficult to awaken. Vomiting (throwing up) and not able to eat or drink for 12 hours. 3 or more loose, watery bowel movements in 24 hours (diarrhea). Any new concerning symptoms. * Follow Up Appointment 1:Physician/Dept/Service: Dr. Pappas for Referral: PCP. follow up post dischargeCall to Schedule in: 1 weekPhone Number: Someone will call you with the time on Sunday 04/09.Comments: will need referral to vascular at appointment/referral for PFT/ formal sleep study * Follow Up Appointment 2:Physician/Dept/Service: Dr. Cook for Referral: GastroenterologyComments: Someone will call you with the time of Sunday [facility]. [facility] Attachments The following attachments cannot be sent through Care Everywhere. * Bronchiectasis ([place]) * Hypoxemia: General Info ([place]) * prednisone ([place]) * levofloxacin (oral) ([place]) [facility]* Attachments The following attachments cannot be sent through Care Everywhere. * Nausea and Vomiting, Adult ED ([place]) * Weakness ED ([place]) [facility] Discharge instructions* Attachments The following attachments cannot be sent through Care Everywhere. * Gastrostomy, Permanent and Temporary Discharge Instructions ([place]) [facility]: Hospital Discharge instructions* Attachments The following attachments cannot be sent through Care Everywhere. * How to Care for Your Gastrostomy Tube ([place]) * Percutaneous Endoscopic Gastrostomy Discharge Instructions ([place]) * Moderate and Deep Sedation in Adults ([place]) [facility]: Hospital Discharge instructions* Attachments The following attachments cannot be sent through Care Everywhere. * How to Care for Your Gastrostomy Tube ([place]) * Percutaneous Endoscopic Gastrostomy Discharge Instructions ([place]) * Moderate and Deep Sedation in Adults ([place]) [facility] Work Phone: Reason for referral (narrative)* (Routine) Specialty Diagnoses / Procedures Referred By Contac t Referred To Contact [facility] [address] [place] [address] Referral ID Status Reason Start Date Expiration Date Visits Re quested Visits Authorized * (Routine) Specialty Diagnoses / Procedures Referred By Contac t Referred To Contact [facility] [address] [place] [address] Referral ID Status Reason Start Date Expiration Date Visits Re quested Visits Authorized * Unlisted Procedure Code (Routine) - New Request Specialty Diagnoses / Procedures Referred By Contac t Referred To Contact Procedures INPATIENT ADMISSION NOTIFICATION Galen Miller MD [address] [place] [address] Referral ID Status Reason Start Date Expiration Date V isits Requested Visits Authorized [id number] New Request 03/03/2023 03/27/2024 1 1 * Radiology (Emergency) - New Request Specialty Diagnoses / Procedures Referred By Contac t Referred To Contact Procedures Burton Dorantes PA-C [address] [place] [address] Referral ID Status Reason Start Date Expiration Date V isits Requested Visits Authorized [id number] New Request 03/03/2023 03/27/2024 1 1 [facility] (Routine) Specialty Diagnoses / Procedures Referred By Contac t Referred [facility] [place] [address] Referral ID Status Reason Start Date Expiration Date Visits Re quested Visits Authorized * (Routine) Specialty Diagnoses / Procedures Referred By Contac t Referred To Contact Ralf Kent, [employer] INSTRUCTOR-PROJECT FACILITATOR [address] [place] [address] Referral ID Status Reason Start Date Expiration Date Visits Re quested Visits Authorized * Endoscopy (Routine) - Closed Specialty Diagnoses / Procedures Referred By Contac t Referred To Contact Diagnoses Severe protein-calorie malnutrition Procedures INTERVENTIONAL UPPER ENDOSCOPY CT EGD PERCUTANEOUS PLACEMENT GASTROSTOMY TUBE Arley Godoy MD [address] [place] [address] Referral ID Status Reason Start Date Expiration Date Visits Re quested Visits Authorized [id number] Closed 04/01/2023 04/25/2024 1 1 [facility] for referral (narrative)* (Routine) Specialty Diagnoses / Procedures Referred By Contac t Referred To Contact [facility] [address] [place] [address] Referral ID Status Reason Start Date Expiration Date Visits Re quested Visits Authorized * (Routine) Specialty Diagnoses / Procedures Referred By Contac t Referred To Contact [facility] [address] [place] [address] Referral ID Status Reason Start Date Expiration Date Visits Re quested Visits Authorized [facility] for referral (narrative)* Consultation (Routine) - New Request Specialty Diagnoses / Procedures Referred By Contac t Referred To Contact Gastroenterology Diagnoses Other dysphagia Eliseo Brennan, [employer] INSTRUCTOR-PROJECT FACILITATOR [address] [place] [address] aTsha Albert MD [address] [facility] Department [place] [address] Referral ID Status Reason Start Date Expiration Date V isits Requested Visits Authorized [id number] New Request 05/11/2023 06/04/2024 1 1 * (Routine) Specialty Diagnoses / Procedures Referred By Contac t Referred To Contact [address] [address] Referral ID Status Reason Start Date Expiration Date Visits Re quested Visits Authorized * (Routine) Specialty Diagnoses / Procedures Referred By Contac t Referred To Contact [address] [address] Referral ID Status Reason Start Date Expiration Date Visits Re quested Visits Authorized * (Routine) Specialty Diagnoses / Procedures Referred By Contac t Referred To Contact [address] [place] [address] Referral ID Status Reason Start Date Expiration Date Visits Re quested Visits Authorized * Unlisted Procedure Code (Routine) - New Request Specialty Diagnoses / Procedures Referred By Contac t Referred To Contact Procedures INPATIENT ADMISSION NOTIFICATION Angela Fitch, DO [address] [place] [address] Referral ID Status Reason Start Date Expiration Date V isits Requested Visits Authorized [id number] New Request 05/09/2023 06/02/2024 1 1 * Unlisted Procedure Code (Routine) - New Request Specialty Diagnoses / Procedures Referred By Contac t Referred To Contact Procedures INPATIENT ADMISSION NOTIFICATION Angela Fitch DO [address] [place] [address] Referral ID Status Reason Start Date Expiration Date V isits Requested Visits Authorized [id number] New Request 05/09/2023 06/02/2024 1 1 * (Routine) Specialty Diagnoses / Procedures Referred By Contac t Referred To Contact [address] [address] Referral ID Status Reason Start Date Expiration Date Visits Re quested Visits Authorized [facility] for referral (narrative)* (Routine) Specialty Diagnoses / Procedures Referred By Contac t Referred To Contact [address] [address] Referral ID Status Reason Start Date Expiration Date Visits Re quested Visits Authorized * (Routine) Specialty Diagnoses / Procedures Referred By Contac t Referred To Contact [address] [address] Referral ID Status Reason Start Date Expiration Date Visits Re quested Visits Authorized * (Routine) Specialty Diagnoses / Procedures Referred By Contac t Referred To Contact [address] [address] Referral ID Status Reason Start Date Expiration Date Visits Re quested Visits Authorized * Unlisted Procedure Code (Routine) - New Request Specialty Diagnoses / Procedures Referred By Contac t Referred To Contact Procedures INPATIENT ADMISSION NOTIFICATION Cayla Maria MD [address] [place] [address] Referral ID Status Reason Start Date Expiration Date V isits Requested Visits Authorized [id number] New Request 05/24/2023 06/17/2024 1 1 * Radiology (Emergency) - New Request Specialty Diagnoses / Procedures Referred By Contac t Referred To Contact Procedures ECG Sonu [place] MD [address] [place] [address] Referral ID Status Reason Start Date Expiration Date V isits Requested Visits Authorized [id number] New Request 05/24/2023 06/17/2024 1 1 [facility] for referral (narrative)* (Routine) Specialty Diagnoses / Procedures Referred By Contac t Referred To Contact [address] [address] Referral ID Status Reason Start Date Expiration Date Visits Re quested Visits Authorized * (Routine) Specialty Diagnoses / Procedures Referred By Contac t Referred To Contact [address] [address] Referral ID Status Reason Start Date Expiration Date Visits Re quested Visits Authorized * (Routine) Specialty Diagnoses / Procedures Referred By Contac t Referred To Contact [address] [address] Referral ID Status Reason Start Date Expiration Date Visits Re quested Visits Authorized * (Routine) Specialty Diagnoses / Procedures Referred By Contac t Referred To Contact [address] [address] Referral ID Status Reason Start Date Expiration Date Visits Re quested Visits Authorized * Unlisted Procedure Code (Routine) - New Request Specialty Diagnoses / Procedures Referred By Contac t Referred To Contact Procedures INPATIENT ADMISSION NOTIFICATION Cayla Maria MD [address] [place] [address] Referral ID Status Reason Start Date Expiration Date V isits Requested Visits Authorized [id number] New Request 06/14/2023 07/08/2024 1 1 * Radiology (Emergency) - New Request Specialty Diagnoses / Procedures Referred By Contac t Referred To Contact Procedures ECG Eliseo Patton MD [address] [place] [address] Referral ID Status Reason Start Date Expiration Date V isits Requested Visits Authorized [id number] New Request 06/14/2023 07/08/2024 1 1 [facility] for referral (narrative)* Consultation (Emergency) - Authorized Specialty Diagnoses / Procedures Referred By Contac t Referred To Contact Gastroenterology Diagnoses Generalized weakness Nausea and vomiting, unspecified vomiting type Ernestina Krishnamurthy DO [address] [place] [address] Referral ID Status Reason Start Date Expiration Date Visits Requested Visits Authorized [id number] Authorized Specialty Services Required 11/15/2023 11/14/2024 1 1 * Consultation (Emergency) - Authorized Specialty Diagnoses / Procedures Referred By Contac t Referred To Contact Family Medicine / Primary Care Diagnoses Generalized weakness Nausea and vomiting, unspecified vomiting type Ernestina Krishnamurthy DO [address] [place] [address] Referral ID Status Reason Start Date Expiration Date Visits Requested Visits Authorized [id number] Authorized Specialty Services Required 11/15/2023 11/14/2024 1 1 [facility] (Routine) Specialty Diagnoses / Procedures Referred By Contac t Referred To Contact [address] [address] Referral ID Status Reason Start Date Expiration Date Visits Re quested Visits Authorized * (Routine) Specialty Diagnoses / Procedures Referred By Contac t Referred To Contact [address] [address] Referral ID Status Reason Start Date Expiration Date Visits Re quested Visits Authorized * (Routine) Specialty Diagnoses / Procedures Referred By Contac t Referred To Contact [address] [address] Referral ID Status Reason Start Date Expiration Date Visits Re quested Visits Authorized * Unlisted Procedure Code (Routine) - New Request Specialty Diagnoses / Procedures Referred By Contac t Referred To Contact Procedures INPATIENT ADMISSION NOTIFICATION Angela Fitch, DO [address] [place] [address] Phone: tel: fax: Referral ID Status Reason Start Date Expiration Date V isits Requested Visits Authorized [id number] New Request 07/04/2024 07/29/2025 1 1 * Radiology (Emergency) - New Request Specialty Diagnoses / Procedures Referred By Contac t Referred To Contact Procedures ECG Sonu [place] MD [address] [place] [address] Phone: tel: fax: Referral ID Status Reason Start Date Expiration Date V isits Requested Visits Authorized [id number] New Request 07/04/2024 07/29/2025 1 1 [facility] for referral (narrative)* (Routine) Specialty Diagnoses / Procedures Referred By Contac t Referred To Contact Tory Eemry APRN-CNP [address] [place] [address] Phone: tel: fax: Referral ID Status Reason Start Date Expiration Date Visits Re quested Visits Authorized * (Routine) Specialty Diagnoses / Procedures Referred By Contac t Referred To Contact Tory Emery APRN-CNP [address] [place] [address] Phone: tel: fax: Referral ID Status Reason Start Date Expiration Date Visits Re quested Visits Authorized * Unlisted Procedure Code (Routine) - New Request Specialty Diagnoses / Procedures Referred By Camila t Referred To Contact Procedures INPATIENT ADMISSION NOTIFICATION Burton George MD [address] [place] [address] Phone: tel: fax: Referral ID Status Reason Start Date Expiration Date V isits Requested Visits Authorized [id number] New Request 07/30/2024 08/24/2025 1 1 * Radiology (Emergency) - New Request Specialty Diagnoses / Procedures Referred By Camila t Referred To Contact Procedures ECG Stevenson Andrews DO [address] [place] [address] Phone: tel: fax: Referral ID Status Reason Start Date Expiration Date V isits Requested Visits Authorized [id number] New Request 07/30/2024 08/24/2025 1 1 [facility] for visit Narrative* Auth/Cert Specialty Diagnoses / Procedures Referred By Camila t Referred To Contact Diagnoses Pulmonary embolus, right (HCC) Community acquired pneumonia, encephalopathy, hypoxia and acute PE with right heart strain needs ICU placement Referral ID Status Reason Start Date Expiration Date Visits Re quested Visits Authorized [id number] 1 1 [facility] for visit Narrative* MRI/CAT Scan (Routine) - Closed Specialty Diagnoses / Procedures Referred By Evelinaac t Referred To Contact Computerized Tomography Scan Diagnoses Mass of pleura Lung nodule Procedures CT CHEST WITHOUT CONTRAST CHG DIAGNOSTIC COMPUTED TOMOGRAPHY THORAX W/O CNTRST Yobani Valle MD [address] [place] [address] Phone: tel: fax: [facility] CT Scan [address] [place] [address] Phone: tel: fax: Referral ID Status Reason Start Date Expiration Date Visits Re quested Visits Authorized [id number] Closed 12/31/2023 01/24/2025 1 1 [facility] Endoscopy (Routine) - Pending Review Specialty Diagnoses / Procedures Referred By Contact Referred To Contact Gastroenterology Diagnoses S/P percutaneous endoscopic gastrostomy (PEG) tube placement (Multi) Pharyngoesophageal dysphagia History of throat cancer Procedures Esophagogastroduodenoscopy (EGD) w PEG Tube Placement, w PEG Tube Removal CT ESOPHAGOGASTRODUODENOSCOPY TRANSORAL DIAGNOSTIC CT EGD TRANSORAL BIOPSY SINGLE/MULTIPLE Vasu Jaimes, DO [address] [facility], [address] [place] [address] Phone: tel:[phone] fax:[phone] Referral ID Status Reason Start Date Expiration Date V isits Requested Visits Authorized [id number] Pending Review 05/17/2024 05/17/2025 1 1 [facility] Work Phone: Reason for visit Narrative* Auth/Cert Specialty Diagnoses / Procedures Referred By Contac t Referred To Contact Diagnoses Acute hypoxemic respiratory failure (HCC) Right upper lobe pneumonia, hypoxemia, sepsis Referral ID Status Reason Start Date Expiration Date Visits Re quested Visits Authorized [id number] 1 1 [facility] for visit Narrative* MRI/CT (Routine) - Closed Specialty Diagnoses / Procedures Referred By Contac t Referred To Contact CT IMAGING Diagnoses Multiple lung nodules on CT Aspiration into lower respiratory tract, subsequent encounter Procedures CT CHEST WO IVCON DIAGNOSTIC COMPUTED TOMOGRAPHY THORAX W/O Sushma Kwan [address] [place] [address] Phone: tel: fax: [place] [address] Referral ID Status Reason Start Date Expiration Date V isits Requested Visits Authorized [id number] Closed Auto-Generate d Referral 08/09/2024 09/08/2025 1 1 [facility] for visit Narrative* Endoscopy (Routine) - Closed Specialty Diagnoses / Procedures Referred By Contact Referred To Contact Gastroenterology Diagnoses S/P percutaneous endoscopic gastrostomy (PEG) tube placement (Multi) Pharyngoesophageal dysphagia History of throat cancer Procedures Esophagogastroduodenoscopy (EGD) w PEG Tube Placement, w PEG Tube Removal CT ESOPHAGOGASTRODUODENOSCOPY TRANSORAL DIAGNOSTIC CT EGD TRANSORAL BIOPSY SINGLE/MULTIPLE Vasu Jaimes DO [address] [place] [address] Phone: tel:[phone] fax:[phone] Referral ID Status Reason Start Date Expiration Date Visits Re quested Visits Authorized [id number] Closed 05/17/2024 05/17/2025 1 1 [facility] Work Phone: [facility] for visit Narrative* Endoscopy (Routine) - Authorized Specialty Diagnoses / Procedures Referred By Contact Referred To Contact Gastroenterology Diagnoses S/P percutaneous endoscopic gastrostomy (PEG) tube placement (Multi) Procedures Esophagogastroduodenoscopy (EGD) w PEG Tube Removal, w PEG Tube Placement CT ESOPHAGOGASTRODUODENOSCOPY TRANSORAL DIAGNOSTIC CT EGD TRANSORAL BIOPSY SINGLE/MULTIPLE Vasu Jaimes DO [address] [place] [address] Phone: tel:[phone] fax:[phone] Referral ID Status Reason Start Date Expiration Date V isits Requested Visits Authorized [id number] Authorized 10/31/2023 10/30/2024 1 1 [facility] Work Phone: History of Present Illness * Richy Emerson MD - 01/01/2018 2:20 PM EST Formatting of this note may be different from the original. Chief Complaint Patient presents with Skin Problem Other low testosterone- refill Arthritis refill Amy Sun would like refills on his testosterone gel and his tramadol, which he uses for arthritis. Bill states he has been going to the wound center (hyperbaric chamber) for a tooth that wouldn't heal. He states since going there he has noticed a lump on his left ankle that he is concerned with. HPI Hypertension, Blood Pressure Recheck Amy Sun, a 67 y.o. male, is here for recheck on his blood pressure and refills of his medication. He has been compliant with his medication. yes There have been no intolerability issues. yes BP Readings from Last 3 Encounters: 01/01/18 : (!) 140/102 12/18/17 : 122/90 09/11/17 : 93/70Skin lesion Patient states he has noticed a skin lesion developing on his left ankle. Been present for a few months getting larger. Multiple joint pains Patient states that he is here for refill of pain medication. His medicines have done well controlling his symptoms. He is compliant and had no side effects. Testosterone deficiency Patient should for refill of his testosterone. He has had no problems with the medication. Been compliant No Known Allergies Outpatient Medications Prior to Visit Medication Sig Dispense Refill aspirin 81 MG Tab daily. dutasteride (AVODART) 0.5 MG Cap Take 1 capsule by mouth daily. 90 capsule 1 famotidine 40 MG Tab Take 1 tablet by mouth daily. 90 tablet [address]ep[address] capsule Take 1 capsule by mouth daily. 90 capsule 0 rosuvastatin (CRESTOR) 5 MG Tab per tablet Take 1 tablet by mouth daily. 90 tablet 1 Testosterone 50 MG/5GM (1%) Gel gel Place 0.5 Tubes on skin daily. 45 Tube 0 valsartan 160 MG Tab Take 1 tablet by mouth daily. 90 tablet 1 traMADol 50 MG Tab tablet Take 1 tablet by mouth 3 times daily as needed. 270 tablet 0 valsartan (DIOVAN) 160 MG Tab Take 1 tablet by mouth daily. (Patient not taking: Reported on 01/01/2018 ) 30 tablet 0 No facility-administered medications prior to visit. family history includes Coronary Artery Disease in an other family member; Heart Disease - Other inhis brother, father, and another family member; No known problems in his mother. reports that he has quit smoking. His smoking use included Cigarettes. He quit after 46.00 years ofuse. He has never used smokeless tobacco. He reports that he does not drink alcohol or use drugs. @SURGICALXP@ Review of Systems Visit Vitals BP (!) 140/102 Pulse 64 Temp 98.5 F (36.9 C) (Temporal) SpO2 96% Review of Systems Constitutional: Negative for malaise/fatigue. Skin: Positive for skin lesions. Eyes: Negative. Negative for blurred vision. Cardiovascular: Negative. Negative for chest pain. Respiratory: Negative. Is not experiencing shortness of breath. Musculoskeletal: Positive for joint pain. Neurological: Positive for headaches. Physical Exam Physical Exam Eyes: Pupils are equal, round, and reactive to light. Cardiovascular: Normal rate and regular rhythm. Pulmonary/Chest: Effort normal and breath sounds normal. Musculoskeletal: He exhibits no edema. Neurological: No cranial nerve deficit. Skin: 2.5 x 2 and half centimeter lipoma on the left lower leg Nursing note and vitals reviewed. Assessment & Plan Problem List Items Addressed This Visit Endocrine Testicular hypofunction Relevant Medications Testosterone 50 MG/5GM (1%) Gel gel MusculoSkeletal Arthritis Relevant Medications traMADol 50 MG Tab tablet Other Visit Diagnoses Lipoma of left lower extremity - Primary Will observe the lipoma see if it changes in size or becomes more uncomfortable. Richy Emerson MD @DATE@, 3:08 PM * Shereen Elena LPN - 01/01/2018 2:20 PM EST Amy Sun would like refills on his testosterone gel and his tramadol, which he uses for arthritis. Bill states he has been going to the wound center (hyperbaric chamber) for a tooth that wouldn't heal. He states since going there he has noticed a lump on his left ankle that he is concerned with. in this encounter Assessments Diagnosis Lipoma of left lower extremi ty - Primary Testicular hypofunction Other testicular hypofunction Arthritis Arthropathy, unspecified, site unspecified Summary Purpose Family History No Family History Records FoundNo Family History Records FoundNo Family History Records FoundNo Family History Records FoundNo Family History Records FoundNo Family History Records FoundNo Family History Records FoundNo Family History Records FoundNo Family History Records FoundNo Family History Records FoundNo Family History Records FoundNo Family History Records FoundNo Family History Records FoundNo Family History Records FoundNo Family History Records Found Advance Directives No Advanced Directives Records FoundLatest Code Status on File Code Status Date Activated Date Inactivated Comments Full Code 03/03/2023 11:31 AM Latest Code Status on File Code Status Date Activated Date Inactivated Comments Full Code 03/03/2023 11:31 AM Latest Code Status on File Code Status Date Activated Date Inactivated Comments Full Code 05/09/2023 1:07 PM Code Status History Code Status Date Activated Date Inactivated Comments Full Code 03/03/2023 11:31 AM 05/09/2023 1:07 PM Latest Code Status on File Code Status Date Activated Date Inactivated Comments Full Code 05/25/2023 1:13 AM Code Status History Code Status Date Activated Date Inactivated Comments Full Code 05/09/2023 1:07 PM 05/25/2023 1:13 AM Full Code 03/03/2023 11:31 AM 05/09/2023 1:07 PM Latest Code Status on File Code Status Date Activated Date Inactivated Comments Full Code 05/25/2023 1:13 AM Code Status History Code Status Date Activated Date Inactivated Comments Full Code 05/09/2023 1:07 PM 05/25/2023 1:13 AM Full Code 03/03/2023 11:31 AM 05/09/2023 1:07 PM Latest Code Status on File Code Status Date Activated Date Inactivated Comments Full Code 06/14/2023 8:47 PM Code Status History Code Status Date Activated Date Inactivated Comments Full Code 05/25/2023 1:13 AM 06/14/2023 8:47 PM Full Code 05/09/2023 1:07 PM 05/25/2023 1:13 AM Full Code 03/03/2023 11:31 AM 05/09/2023 1:07 PM Date Activated Date Inactivated Comments 06/14/2023 8:47 PM Date Activated Date Inactivated Comments 05/25/2023 1:13 AM 06/14/2023 8:47 PM Date Activated Date Inactivated Comments 05/09/2023 1:07 PM 05/25/2023 1:13 AM Date Activated Date Inactivated Comments 03/03/2023 11:31 AM 05/09/2023 1:07 PM Date Activated Date Inactivated Comments 06/14/2023 8:47 PM Date Activated Date Inactivated Comments 05/25/2023 1:13 AM 06/14/2023 8:47 PM Date Activated Date Inactivated Comments 05/09/2023 1:07 PM 05/25/2023 1:13 AM Date Activated Date Inactivated Comments 03/03/2023 11:31 AM 05/09/2023 1:07 PM Date Activated Date Inactivated Comments 12/22/2023 8:49 PM 12/25/2023 6:49 PM Date Activated Date Inactivated Comments 12/22/2023 7:38 PM 12/22/2023 8:49 PM Date Activated Date Inactivated Comments 12/22/2023 8:49 PM 12/25/2023 6:49 PM Date Activated Date Inactivated Comments 12/22/2023 7:38 PM 12/22/2023 8:49 PM Date Activated Date Inactivated Comments 06/07/2024 10:11 PM 06/09/2024 3:54 PM Date Activated Date Inactivated Comments 12/22/2023 8:49 PM 12/25/2023 6:49 PM Date Activated Date Inactivated Comments 12/22/2023 7:38 PM 12/22/2023 8:49 PM Date Activated Date Inactivated Comments 06/07/2024 10:11 PM 06/09/2024 3:54 PM Date Activated Date Inactivated Comments 12/22/2023 8:49 PM 12/25/2023 6:49 PM Date Activated Date Inactivated Comments 12/22/2023 7:38 PM 12/22/2023 8:49 PM Date Activated Date Inactivated Comments 07/30/2024 1:52 PM Date Activated Date Inactivated Comments 06/14/2023 8:47 PM 07/30/2024 1:52 PM Date Activated Date Inactivated Comments 05/25/2023 1:13 AM 06/14/2023 8:47 PM Date Activated Date Inactivated Comments 05/09/2023 1:07 PM 05/25/2023 1:13 AM Date Activated Date Inactivated Comments 03/03/2023 11:31 AM 05/09/2023 1:07 PM Date Activated Date Inactivated Comments 11/17/2024 11:09 PM 11/22/2024 12:56 PM Date Activated Date Inactivated Comments 06/07/2024 10:11 PM 06/09/2024 3:54 PM Date Activated Date Inactivated Comments 12/22/2023 8:49 PM 12/25/2023 6:49 PM Date Activated Date Inactivated Comments 12/22/2023 7:38 PM 12/22/2023 8:49 PM Date Activated Date Inactivated Comments 12/15/2024 11:20 PM 12/18/2024 5:12 PM Date Activated Date Inactivated Comments 11/17/2024 11:09 PM 11/22/2024 12:56 PM Date Activated Date Inactivated Comments 06/07/2024 10:11 PM 06/09/2024 3:54 PM Date Activated Date Inactivated Comments 12/22/2023 8:49 PM 12/25/2023 6:49 PM Date Activated Date Inactivated Comments 12/22/2023 7:38 PM 12/22/2023 8:49 PM Reason for Referral Specialty Diagnoses / Procedures Referred By Contac t Referred To Contact CT IMAGING Diagnoses Lung nodules Procedures CT LUNG FOLLOWUP WO IVCON CAT SCAN OF CHEST Linda Jean Baptiste, BUS TROLLEY AND TAXI INSTRUCTOR.PROJECT FACILITATOR [address] [place] [address] Ct Imaging Referral ID Status Reason Start Date Expiration Date V isits Requested Visits Authorized [id number] Closed Auto-Generate d Referral 02/13/2021 03/15/2022 1 1 Specialty Diagnoses / Procedures Referred By Contac t Referred To Contact CT IMAGING Diagnoses Lung nodules Procedures CT LUNG FOLLOWUP WO IVCON DIAGNOSTIC COMPUTED TOMOGRAPHY THORAX W/O CNTRST Salvador Brandonbh B [address] [place] [address] Ct Imaging Referral ID Status Reason Start Date Expiration Date Visits Requested Visits Authorized [id number] Pending Review Auto-Generat ed Referral 05/15/2021 06/14/2022 1 1 Specialty Diagnoses / Procedures Referred By Contac t Referred To Contact Radiology Diagnoses Pharyngoesophageal dysphagia Procedures XR Modifed Barium Swallow Jim Holder MD [address] [place] [address] Referral ID Status Reason Start Date Expiration Date V isits Requested Visits Authorized [id number] Pending Review 07/23/2022 07/23/2023 1 1 Specialty Diagnoses / Procedures Referred By Contac t Referred To Contact Rehabilitation Diagnoses Pharyngoesophageal dysphagia Jim Holder MD [address] [address] [facility] Speech Therapy [address] [place] [address] Referral ID Status Reason Start Date Expiration Date V isits Requested Visits Authorized [id number] Authorized 07/23/2022 07/23/2023 1 1 Specialty Diagnoses / Procedures Referred By Evelinaac t Referred To Contact CT IMAGING Diagnoses Lung nodules Procedures CT CHEST WO IVCON DIAGNOSTIC COMPUTED TOMOGRAPHY THORAX W/O CNTRST Brandon, Sushma B [address] [place] [address] [place] [address] Referral ID Status Reason Start Date Expiration Date Visits Requested Visits Authorized [id number] Authorized Auto-Generat ed Referral 06/19/2023 04/19/2024 1 1 Specialty Diagnoses / Procedures Referred By Contac t Referred To Contact Oncology Diagnoses Failure to thrive in adult History of tongue cancer Jim Holder MD [address] [place] [address] Referral ID Status Reason Start Date Expiration Date Visits Re quested Visits Authorized [id number] Closed 05/19/2023 05/18/2024 1 1 Specialty Diagnoses / Procedures Referred By Evelinaac t Referred To Contact Diagnoses Chronic obstructive pulmonary disease, unspecified COPD type Centrilobular emphysema Interstitial lung disease Reactive airway disease without complication, unspecified asthma severity, unspecified whether persistent Procedures PFT COMPLETE Yobani Valle MD [address] [place] [address] Referral ID Status Reason Start Date Expiration Date V isits Requested Visits Authorized [id number] Auth Not Needed 06/04/2023 06/28/2024 1 1 Specialty Diagnoses / Procedures Referred By Contac t Referred To Contact Diagnoses Chronic obstructive pulmonary disease, unspecified COPD type Centrilobular emphysema Interstitial lung disease Reactive airway disease without complication, unspecified asthma severity, unspecified whether persistent Procedures EXERCISE-6 MIN. WALK Yobani Valle MD [address] [place] [address] Referral ID Status Reason Start Date Expiration Date V isits Requested Visits Authorized [id number] Auth Not Needed 06/04/2023 06/28/2024 1 1 Specialty Diagnoses / Procedures Referred By Contac t Referred To Contact Ent - Otolaryngology Diagnoses Aspiration into lower respiratory tract, subsequent encounter History of tongue cancer Procedures CONSULT TO ENT OFFICE/OUTPATIENT NEW HIGH MDM 60 MINUTES Brandon, Sushma B [address] [place] [address] Referral ID Status Reason Start Date Expiration Date Visits Requested Visits Authorized [id number] Authorized PCP Requested Referral 06/23/2023 06/22/2024 1 1 Specialty Diagnoses / Procedures Referred By Contac t Referred To Contact CT IMAGING Diagnoses Aspiration into lower respiratory tract, subsequent encounter History of tongue cancer Procedures CT CHEST W IVCON DIAGNOSTIC COMPUTED TOMOGRAPHY THORAX W/CONTRAST Brandon, Sushma B [address] [place] [address] [place] [address] Referral ID Status Reason Start Date Expiration Date Visits Requested Visits Authorized [id number] Authorized Auto-Generat ed Referral 06/23/2023 2024 1 1 Specialty Diagnoses / Procedures Referred By Contac t Referred To Contact CT IMAGING Diagnoses History of tongue cancer Lung nodules Procedures CT ABD/PEL W IVCON CT ABD & PELVIS W/CONTRAST Brandon, Sushma B [address] [place] [address] [place] [address] Referral ID Status Reason Start Date Expiration Date Visits Requested Visits Authorized [id number] Pending Review Auto-Generat ed Referral 07/23/2023 08/21/2024 1 1 Specialty Diagnoses / Procedures Referred By Contac t Referred To Contact CT IMAGING Diagnoses History of tongue cancer Lung nodules Procedures CT CHEST W IVCON DIAGNOSTIC COMPUTED TOMOGRAPHY THORAX W/CONTRAST Brandon, Sushma B [address] [place] [address] [place] [address] Referral ID Status Reason Start Date Expiration Date Visits Requested Visits Authorized [id number] Pending Review Auto-Generat ed Referral 07/23/2023 08/21/2024 1 1 Specialty Diagnoses / Procedures Referred By Contac t Referred To Contact Gunjan Godoy MD [address] [facility] [place] [address] Referral ID Status Reason Start Date Expiration Date V isits Requested Visits Authorized [id number] Pending Review 1 1 Referral ID Status Reason Start Date Expiration Date Visits Re quested Visits Authorized [id number] Closed 06/04/2023 06/28/2024 1 1 Specialty Diagnoses / Procedures Referred By Contac t Referred To Contact Diagnoses Interstitial lung disease Multiple lung nodules on CT Mass of pleura Procedures CT CHEST WITHOUT CONTRAST CHG DIAGNOSTIC COMPUTED TOMOGRAPHY THORAX W/O CNTRST Yobani Valle MD [address] [place] [address] Referral ID Status Reason Start Date Expiration Date V isits Requested Visits Authorized [id number] Authorized 08/26/2023 09/19/2024 1 1 Specialty Diagnoses / Procedures Referred By Contact Referred To Contact Cardio-Pulmonary Rehabilitation Diagnoses Chronic obstructive pulmonary disease, unspecified COPD type Procedures CT PHYS/QHP SVCS OP PULM REHAB WO CONT OXIMTRY MNTR Yobani Valle MD [address] [place] [address] [facility] [address] [place] [address] Referral ID Status Reason Start Date Expiration Date V isits Requested Visits Authorized [id number] New Request 08/26/2023 09/19/2024 1 1 Specialty Diagnoses / Procedures Referred By Contac t Referred To Contact Internal Medicine Diagnoses S/P percutaneous endoscopic gastrostomy (PEG) tube placement (HCC) Ulices Clark, DO [address] [address] Vasu Jaimes DO [address] [facility] [address] [place] [address] Referral ID Status Reason Start Date Expiration Date Visits Requested Visits Authorized [id number] Authorized Specialty Services Required/Pat ient's Best Interest 10/23/2023 10/22/2024 1 1 Referral ID Status Reason Start Date Expiration Date V isits Requested Visits Authorized [id number] Closed Auto-Generate d Referral 06/23/2023 2024 1 1 Specialty Diagnoses / Procedures Referred By Contac t Referred To Contact CT IMAGING Diagnoses Lung nodules Multiple lung nodules on CT Aspiration into airway, subsequent encounter History of head and neck cancer Abnormal weight loss Procedures CT ABD/PEL W IVCON CT ABD & PELVIS W/CONTRAST Brandon, Sushma B [address] [place] [id number] [place] [address] Referral ID Status Reason Start Date Expiration Date V isits Requested Visits Authorized [id number] Closed Auto-Generate d Referral 02/14/2023 03/15/2024 1 1 Specialty Diagnoses / Procedures Referred By Contac t Referred To Contact CT IMAGING Diagnoses Lung nodules Procedures CT CHEST W IVCON DIAGNOSTIC COMPUTED TOMOGRAPHY THORAX W/CONTRAST Brandon, Sushma B [address] [place] [id number] [place] [address] Referral ID Status Reason Start Date Expiration Date V isits Requested Visits Authorized [id number] Closed Auto-Generate d Referral 02/14/2023 03/15/2024 1 1 Specialty Diagnoses / Procedures Referred By Contac t Referred To Contact CT IMAGING Diagnoses 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) Procedures CT NECK SOFT TISSUE W IVCON CT SOFT TISSUE NECK W/CONTRAST MATERIAL Brandon, Sushma B [address] [place] [id number] [place] [address] Referral ID Status Reason Start Date Expiration Date V isits Requested Visits Authorized [id number] Closed Auto-Generate d Referral 02/18/2023 03/19/2024 1 1 Specialty Diagnoses / Procedures Referred By Contac t Referred To Contact CT IMAGING Diagnoses Multiple lung nodules on CT Procedures CT LUNG FOLLOWUP WO IVCON DIAGNOSTIC COMPUTED TOMOGRAPHY THORAX W/O CNTRST Linda Jean Baptiste, BUS TROLLEY AND TAXI INSTRUCTOR.PROJECT FACILITATOR [address] [place] [address] [place] [address] Referral ID Status Reason Start Date Expiration Date V isits Requested Visits Authorized [id number] Closed Auto-Generate d Referral 12/06/2022 01/05/2024 1 1 Specialty Diagnoses / Procedures Referred By Contac t Referred To Contact CT IMAGING Diagnoses Former smoker Procedures CT LUNG SCREEN WO IVCON COMPUTED TOMOGRAPHY THORAX LW DOSE LNG CA SCR C- Linda Jean Baptiste P, BUS TROLLEY AND TAXI INSTRUCTOR.PROJECT FACILITATOR [address] [place] [address] Ct Imaging [place] [address] Referral ID Status Reason Start Date Expiration Date V isits Requested Visits Authorized [id number] Closed Auto-Generate d Referral 10/30/2022 02/16/2023 1 1 Specialty Diagnoses / Procedures Referred By Contac t Referred To Contact Diagnoses Mass of pleura Lung nodule Procedures CT CHEST WITHOUT CONTRAST CHG DIAGNOSTIC COMPUTED TOMOGRAPHY THORAX W/O CNTRST Yobani Valle MD [address] [place] [address] Referral ID Status Reason Start Date Expiration Date V isits Requested Visits Authorized [id number] New Request 12/31/2023 01/24/2025 1 1 Referral ID Status Reason Start Date Expiration Date V isits Requested Visits Authorized [id number] Closed Auto-Generate d Referral 07/23/2023 08/21/2024 1 1 Referral ID Status Reason Start Date Expiration Date V isits Requested Visits Authorized [id number] Closed Auto-Generate d Referral 07/23/2023 08/21/2024 1 1 Specialty Diagnoses / Procedures Referred By Contac t Referred To Contact Eugenio Roca MD [address] [place] [address] Referral ID Status Reason Start Date Expiration Date V isits Requested Visits Authorized [id number] Pending Review 11/11/2023 11/10/2024 1 1 Referral ID Status Reason Start Date Expiration Date V isits Requested Visits Authorized [id number] Pending Review 11/11/2023 11/10/2024 1 1 Referral ID Status Reason Start Date Expiration Date V isits Requested Visits Authorized [id number] Pending Review 11/11/2023 11/10/2024 1 1 Specialty Diagnoses / Procedures Referred By Contact Referred To Contact Gastroenterology Diagnoses S/P percutaneous endoscopic gastrostomy (PEG) tube placement (Multi) Procedures Esophagogastroduodenoscopy (EGD) w PEG Tube Removal, w PEG Tube Placement CT ESOPHAGOGASTRODUODENOSCOPY TRANSORAL DIAGNOSTIC CT EGD TRANSORAL BIOPSY SINGLE/MULTIPLE Anegloglenna Vasu Chuyita, DO [address] [facility] [place] [address] [place] [address] Referral ID Status Reason Start Date Expiration Date V isits Requested Visits Authorized [id number] Authorized 10/31/2023 10/30/2024 1 1 Medications Administered Section Inactive Administered Medications - up to 3 most recent administrations Medication Order MAR Action Action Date Dose Rate Site PHENYLephrine 2.5 % 1 Drop (AK-DILATE, AURELIO-SYNEPHRINE) 1 Drop, BOTH EYES, DIRECTED, Starting on Fri11/28/21 at 1500, Until Betty 11/29/21 at 0259, Administer for dilation PROTECT FROM LIGHT Given 11/28/2021 3:00 PM EDT 1 Drop proparacaine 0.5 % 1 Drop (ALCAINE) 1 Drop, BOTH EYES, DIRECTED, Starting on Fri11/28/21 at 1500, Until Betty 11/29/21 at 0259, Administer for pneumo tonometry, tonopen tonometry, or pachymetry. In the event of a proparacaine shortage, administer tetracaine 0.5% ophthalmic drops 1 drop in the left eye as directed for pneumo tonometry, tonopen tonometry, or pachymetry Given 11/28/2021 3:00 PM EDT 1 Drop tropicamide 1 % 1 Drop (MYDRIACYL) 1 Drop, BOTH EYES, DIRECTED, Starting on Fri11/28/21 at 1500, Until Betty 11/29/21 at 0259, Administer for dilation Given 11/28/2021 3:00 PM EDT 1 Drop Inactive Administered Medications - up to 3 most recent administrations Medication Order MAR Action Action Date Dose Rate Site fluorescein-benoxinate 0.25-0.4 % 1 Drop (FLURESS) 1 Drop, BOTH EYES, DIRECTED, Starting on Fri06/05/22 at 1430, Until Betty 06/06/22 at 0229, Administer for applanation tonometry. In the event of a Fluress shortage, administer Joana-Fluor 1 drop into both eyes as directed for applanation tonometry Given 06/05/2022 2:30 PM EDT 1 Drop PHENYLephrine 2.5 % 1 Drop (AK-DILATE, AURELIO-SYNEPHRINE) 1 Drop, BOTH EYES, DIRECTED, Starting on Fri06/05/22 at 1430, Until Betty 06/06/22 at 0229, Administer for dilation PROTECT FROM LIGHT Given 06/05/2022 2:30 PM EDT 1 Drop proparacaine 0.5 % 1 Drop (ALCAINE) 1 Drop, BOTH EYES, DIRECTED, Starting on Fri06/05/22 at 1430, Until Betty 06/06/22 at 0229, Administer for pneumo tonometry, tonopen tonometry, or pachymetry. In the event of a proparacaine shortage, administer tetracaine 0.5% ophthalmic drops 1 drop in the left eye as directed for pneumo tonometry, tonopen tonometry, or pachymetry Given 06/05/2022 2:30 PM EDT 1 Drop tropicamide 1 % 1 Drop (MYDRIACYL) 1 Drop, BOTH EYES, DIRECTED, Starting on Fri06/05/22 at 1430, Until Betty 06/06/22 at 0229, Administer for dilation Given 06/05/2022 2:30 PM EDT 1 Drop Additional Source Comments Reason for Visit (unrecogniz ed section and content) Reason Comments Skin Problem Other low testosterone- re fill Arthritis refill Reason Comments Medication Refill Reason Comments Follow-up Scientology colitis Arthritis 3 mo fu Reason Comments Care Coordination Per order of Dr. Brandon , CBC and CMP results from 05-14-[address] Emerson through the [employer] system. Patient reports he is taking testosterone at this time. Specialty Diagnoses / Procedures Referred By Camila patel Referred To Contact CT IMAGING Diagnoses Lung nodules Procedures CT LUNG FOLLOWUP WO IVCON CAT SCAN OF CHEST Linda Jean Baptiste, BUS TROLLEY AND TAXI INSTRUCTOR.PROJECT FACILITATOR [address] [place] [address] Ct Imaging Referral ID Status Reason Start Date Expiration Date V isits Requested Visits Authorized [id number] Closed Auto-Generate d Referral 02/13/2021 03/15/2022 1 1 Reason Comments Follow Up Reason Comments Benign Prostatic Hyperplasia 6 mo fu Heartburn 6 mo fu Hyperlipidemia 6 mo fu Other 6 mo fu testosterone deficiency Arthritis 6 mo fu Hypertension 6 mo fu Lab Review 6 mo fu Reason Comments Arthritis 3 mo fu Other Low testosterone Reason Comments Counseling Reason Comments Orders Reason Comments Epiretinal Membrane Follow Up Left eye Floaters Both Eyes Pseudophakia Both eyes Reason Comments Cough Reason Comments Transition Of Care Former smoker Reason Comments Nurse Triage Call Reason Comments Benign Prostatic Hyperplasia 6 mo fu Gastroesophageal Reflux Disease 6 mo fu Hyperlipidemia 6 mo fu Arthritis 3 mo fu Hypertension 6 mo fu Reason Comments Results, Lab Reason Comments Epiretinal Membrane Follow Up Left Eye Reason Comments Follow Up Reason Comments Lab Orders Reason Comments Speech Therapy Special[facility] Diagnoses / Procedures [facility] To Contact [facility] Diagnoses Pharyngoesophageal dysphagia Jim Holder MD [address] [address] Op Speech Therapy [address] [place] [phone] Referral ID Status Reason Start Date Expiration Date V isits Requested Visits Authorized [id number] Authorized 07/23/2022 07/23/2023 1 199 Reason Comments 1 mo fu swallow study review Est pt Reason Comments Esophageal Reflux Hyperlipidemia Arthritis Reason Comments Nutrition Telephone Reason Comments Cough X 2 days Chest Congestion Specialty Diagnoses / Procedures Referred By Contac t Referred To Contact Diagnoses Pneumonia Galen Miller MD [address] [place] [address] [facility] Referral ID Status Reason Start Date Expiration Date Visits Re quested Visits Authorized [id number] 1 1 Reason Comments New Patient Discuss peg tube carly cement Specialty Diagnoses / Procedures Referred By Contac t Referred To Contact General Surgery Diagnoses Severe protein-calorie malnutrition Dysphagia, unspecified type Malignant neoplasm of base of tongue Gunjan Godoy MD [address] [place] [address], [facility] [place] [address] Arley Godoy MD [address] [place] [address] [place] [address] Referral ID Status Reason Start Date Expiration Date V isits Requested Visits Authorized [id number] New Request 03/14/2023 04/07/2024 1 1 Specialty Diagnoses / Procedures [facility] Referred To Contact [facility] Referral ID Status Reason Start Date Expiration Date Visits Re quested Visits Authorized [id number] 1 1 Reason Comments Cough Chest Congestion Pt's reports pt had fever of 101.4 yesterday and congestion. Pt denies any SOB Reason Comments <9>Pharyngoesophageal dysphagia 3mo f/u dysphagia, FTT Reason Comments Patient Update Reason Comments Cough Fever Per , he has be en terribly tired for the past couple of days. He has a peg tube placed due to throat cancer and he aspirates a lot. I think he has pneumonia again says fever 102 fever at home and increased weakness. Upon placing sPo2 of patient- pt is 69% with good waveform. Pt is not tachypneic and breathing shallow. Pt has frequent histories of aspiration pneumonia Specialty Diagnoses / Procedures Referred By [facility] Referred To Contact Diagnoses Bronchiectasis with acute exacerbation Acute respiratory failure Hemoptysis Acute respiratory failure with hypoxia Cayla Maria MD [address] [place] [address] [facility] Referral ID Status Reason Start Date Expiration Date Visits Re quested Visits Authorized [id number] 1 1 Reason Comments Nutrition Assessment Reason Comments Follow-up Hospital 05/23 to 05/25 for pneumonia. Bill says he feels much better. He is done with the Levaquin but still has a few days of Prednisone. says his lower legs and ankles were swollen a few days ago but look better today. Reason Comments Chronic Obstructive Pulmonary Disease Respiratoy Failure Pneumonia Establish Care Reason Comments Epiretinal Membrane Follow Up Reason Comments Shortness of Breath States he gets aspir ation pneumonia from his tube feeds Specialty Diagnoses / Procedures [facility] Referred To Contact Diagnoses Pneumonia Cayla Maria MD [address] [place] [address] [facility] Referral ID Status Reason Start Date Expiration Date Visits Re quested Visits Authorized [id number] 1 1 Reason Comments Appointment Ok to cancel ct and labs today. Aa Reason Comments Follow Up Reason Comments New Patient Feeding tube assessm ent Reason Comments Nurse Triage Call vomiting Reason Comments Nutrition Counseling Reason Comments Fever Low grade Reason Comments New Patient Consult. Specialty Diagnoses / Procedures Referred By Camila patel Referred To Contact Ent - Otolaryngology Diagnoses Aspiration into lower respiratory tract, subsequent encounter History of tongue cancer Procedures CONSULT TO ENT OFFICE/OUTPATIENT NEW HIGH MDM 60 MINUTES Sushma Brandon [address] [place] [address] Referral ID Status Reason Start Date Expiration Date V isits Requested Visits Authorized [id number] Closed PCP Requested Referral 06/23/2023 06/22/2024 1 1 Specialty Diagnoses / Procedures Referred By Camila patel Referred To Contact Diagnoses Chronic obstructive pulmonary disease, unspecified COPD type Centrilobular emphysema Interstitial lung disease Reactive airway disease without complication, unspecified asthma severity, unspecified whether persistent Procedures EXERCISE-6 MIN. WALK Yobani Valle MD [address] [place] [address] Referral ID Status Reason Start Date Expiration Date Visits Re quested Visits Authorized [id number] Closed 06/04/2023 06/28/2024 1 1 Specialty Diagnoses / Procedures Referred By Camila patel Referred To Contact Diagnoses Chronic obstructive pulmonary disease, unspecified COPD type Centrilobular emphysema Interstitial lung disease Reactive airway disease without complication, unspecified asthma severity, unspecified whether persistent Procedures PFT COMPLETE Yobani Valle MD [address] [place] [address] Referral ID Status Reason Start Date Expiration Date Visits Re quested Visits Authorized [id number] Closed 06/04/2023 06/28/2024 1 1 Reason Comments Follow-up Chronic Obstructive Pulmonary Disease Reason Comments Hypertension Edema Reason Comments Establish Care Reason Onset Date Comments Follow-up Throwing up, low grade fever can't keep any thing down. Happening for about a week. Fall Risk Screening 10/23/2023 Specialty Diagnoses / Procedures Referred By Camila patel Referred To Contact CT IMAGING Diagnoses Aspiration into lower respiratory tract, subsequent encounter History of tongue cancer Procedures CT CHEST W IVCON DIAGNOSTIC COMPUTED TOMOGRAPHY THORAX W/CONTRAST Brandon, Sushma B [address] [place] [address] [place] [address] Referral ID Status Reason Start Date Expiration Date V isits Requested Visits Authorized [id number] Closed Auto-Generate d Referral 06/23/2023 2024 1 1 Specialty Diagnoses / Procedures Referred By Contac t Referred To Contact CT IMAGING Diagnoses Lung nodules Procedures CT CHEST W IVCON DIAGNOSTIC COMPUTED TOMOGRAPHY THORAX W/CONTRAST Brandon, Sushma B [address] [place] [address] [place] [address] Referral ID Status Reason Start Date Expiration Date V isits Requested Visits Authorized [id number] Closed Auto-Generate d Referral 02/14/2023 03/15/2024 1 1 Specialty Diagnoses / Procedures Referred By Contac t Referred To Contact CT IMAGING Diagnoses 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) Procedures CT NECK SOFT TISSUE W IVCON CT SOFT TISSUE NECK W/CONTRAST MATERIAL Brandon, Sushma B [address] [place] [address] [place] [address] Referral ID Status Reason Start Date Expiration Date V isits Requested Visits Authorized [id number] Closed Auto-Generate d Referral 02/18/2023 03/19/2024 1 1 Specialty Diagnoses / Procedures Referred By Contac t Referred To Contact CT IMAGING Diagnoses Multiple lung nodules on CT Procedures CT LUNG FOLLOWUP WO IVCON DIAGNOSTIC COMPUTED TOMOGRAPHY THORAX W/O CNTRST Linda Jean Baptiste P, BUS TROLLEY AND TAXI INSTRUCTOR.PROJECT FACILITATOR [address] [place] [address] [place] [address] Referral ID Status Reason Start Date Expiration Date V isits Requested Visits Authorized [id number] Closed Auto-Generate d Referral 12/06/2022 01/05/2024 1 1 Specialty Diagnoses / Procedures Referred By Contac t Referred To Contact CT IMAGING Diagnoses Former smoker Procedures CT LUNG SCREEN WO IVCON COMPUTED TOMOGRAPHY THORAX LW DOSE LNG CA SCR C- Linda Jean Baptiste P, BUS TROLLEY AND TAXI INSTRUCTOR.PROJECT FACILITATOR [address] [place] [address] Ct Imaging [facility] Referral ID Status Reason Start Date Expiration Date V isits Requested Visits Authorized [id number] Closed Auto-Generate d Referral 10/30/2022 02/16/2023 1 1 Reason Comments Follow-up Hospital Follow-up -06/16 Pneumonia Possible Hernia Patient has knot o n the left side of groin. 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 Ellegra. Tro uble urinating in morning sometimes. Problem pooping Reason Comments Hernia Specialty Diagnoses / Procedures Referred By Camila patel Referred To Contact General Surgery Diagnoses Left inguinal hernia Ulices Clark, DO [address] [address] Phone: tel: fax: [facility] [address] [place] [address] Medical Office Building, [address]th [place] [address] Phone: tel: fax: Referral ID Status Reason Start Date Expiration Date Visits Re quested Visits Authorized [id number] Closed 12/17/2023 12/16/2024 1 1 Reason Comments Chronic Obstructive Pulmonary Disease Reason Onset Date Comments Medication Refill 12/30/2023 Reason Comments Blood Clot Reason Comments Follow-up Reschedule hernia [facility] rgery Left inguinal hernia Specialty Diagnoses / Procedures Referred By Camila patel Referred To Contact CT IMAGING Diagnoses History of tongue cancer Lung nodules Procedures CT CHEST W IVCON DIAGNOSTIC COMPUTED TOMOGRAPHY THORAX W/CONTRAST Sushma Brandon B [address] [place] [address] Ct Imaging [facility] Referral ID Status Reason Start Date Expiration Date V isits Requested Visits Authorized [id number] Closed Auto-Generate d Referral 07/23/2023 08/21/2024 1 1 Reason Comments Results Called and spoke cristofer Goodwin, she is aware and denies any questions at this time. AA Reason Comments Feeding Tube Peg tube malfunction Specialty Diagnoses / Procedures Referred By Contact Referred To Contact Gastroenterology Diagnoses S/P percutaneous endoscopic gastrostomy (PEG) tube placement (Multi) Procedures Esophagogastroduodenoscopy (EGD) w PEG Tube Removal, w PEG Tube Placement CT ESOPHAGOGASTRODUODENOSCOPY TRANSORAL DIAGNOSTIC CT EGD TRANSORAL BIOPSY SINGLE/MULTIPLE Vasu Jaimes, [address] [facility], [address] [place] [address] Referral ID Status Reason Start Date Expiration Date V isits Requested Visits Authorized [id number] Authorized 10/31/2023 10/30/2024 1 1 Reason Comments Weakness, Gen Ongoing generalized weakness and not feeling well that has been worse the past week. Reason Onset Date Comments Medication Refill 02/23/2024 Reason Onset Date Comments Medication Refill 02/24/2024 Reason Comments URI Fever Reason Comments Chronic Obstructive Pulmonary Disease Reason Onset Date Comments Medication Refill 04/26/2024 Reason Onset Date Comments Medication Refill 05/03/2024 Reason Onset Date Comments Medication Refill 05/03/2024 Reason Onset Date Comments Anticoaglation Stop Request 05/20/2024 Reason Comments Feeding tube issue Bleeding and tendern ess around PED tube Reason Comments Follow-up Pt presents today to follow up with Akash Matthew button. Pt has concerns about clogging. Reason Comments Follow-up 3m f/u Anxiety and d epression Reason Onset Date Comments Medication Refill 06/24/2024 Reason Onset Date Comments Medication Refill 06/28/2024 Reason Comments Cough Pt. Arrives with wif e with c/o coughing up secretions and choking on them. Pt. 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 Cough states he hasn' t been able to catch his breath and persistently coughing until vomiting. Specialty Diagnoses / Procedures Referred By Contac t Referred To Contact Diagnoses Elevated troponin [address] [place] [address] [address] Referral ID Status Reason Start Date Expiration Date Visits Re quested Visits Authorized [id number] 1 1 Reason Comments Transition Of Care Discharged from [facility] a Reason Comments Follow-up Pt presents today as a three month follow up for crohn's colitis and his peg tube. Pt has no complaints symptom huffman, but is complaining about the peg tube placement and some discomfort due to where it's located. Reason Onset Date Comments Medication Refill 09/14/2024 Reason Comments Consult Nodule Reason Comments Follow-up Pt here for a 3 sydnee h follow up. Pt c/o left eye watery and drainage. Pt's also stated that the visiting nurse informed her that pt's lungs are very crackling with his left lung being worse. Reason Comments Eye Discharge Both Eyes Eye Itching Both Eyes Dry Eye(s) Both Eyes Reason Comments Follow-up Pt presents today fo r a Akash-matthew button change today. Pt states the old one has goo like consistency and can't get medicine pushed through. Reason Comments MGD follow up Dry Eye Syndrome Follow Up Reason Onset Date Comments Medication Refill 11/03/2024 Reason Comments URI POSSIBLE NOT SICK YE T BUT PT SPOUSE HAS ONE AND IS ON ANTIBOTICS Reason Comments Follow-up 3 month f/u. Frequen t headaches, pt. taking Excedrin extra strength. Pt. Stated nipple tenderness. Reason Comments Memory Loss Patient spouse repor ts a decline in short term memory, reports patient struggles to make out what he's trying to say.Patient states he struggles remembering what he goes into a room for. Reason Comments Shortness of Breath Specialty Diagnoses / Procedures Referred By Contac t Referred To Contact Diagnoses Septic shock (HCC) Referral ID Status Reason Start Date Expiration Date Visits Re quested Visits Authorized [id number] 1 1 Reason Comments Fever Specialty Diagnoses / Procedures Referred By Contac t Referred To Contact Diagnoses Sepsis (HCC) Sepsis, due to unspecified organism, unspecified whether acute organ dysfunction present (HCC) Referral ID Status Reason Start Date Expiration Date Visits Re quested Visits Authorized [id number] 1 1 (unrecognized sect ion and content) No Status Records FoundNo Status Records FoundNo Status Records FoundNo Status Records FoundNo Status Records FoundNo Status Records FoundNo Status Records FoundNo Status Records FoundNo Status Records FoundNo Status Records FoundNo Status Records FoundNo Status Records FoundNo Status Records FoundNo Status Records FoundNo Status Records Found INFORMATION SOURCE (unrecogn ized section and content) DATE CREATED AUTHOR 09/05/2018 [facility] DATE CREATED AUTHOR AUTHOR'S ORGANIZ ATION 05/26/2021 [facility] DATE CREATED AUTHOR AUTHOR'S ORGANIZ ATION 06/07/2021 [facility] DATE CREATED AUTHOR AUTHOR'S ORGANIZ ATION 06/08/2021 [facility] DATE CREATED AUTHOR AUTHOR'S ORGANIZ ATION 04/15/2023 [facility] DATE CREATED AUTHOR AUTHOR'S ORGANIZ ATION 04/24/2024 [facility] DATE CREATED AUTHOR AUTHOR'S ORGANIZ ATION 05/29/2024 [facility] DATE CREATED AUTHOR AUTHOR'S ORGANIZ ATION 09/10/2024 [facility] DATE CREATED AUTHOR AUTHOR'S ORGANIZ ATION 10/01/2024 [facility] DATE CREATED AUTHOR AUTHOR'S ORGANIZ ATION 11/23/2024 [facility] DATE CREATED AUTHOR AUTHOR'S ORGANIZ ATION 12/29/2024 [facility] DATE CREATED AUTHOR AUTHOR'S ORGANIZ ATION 12/29/2024 [facility] DATE CREATED AUTHOR AUTHOR'S ORGANIZ ATION 12/30/2024 [facility] DATE CREATED AUTHOR AUTHOR'S ORGANIZ ATION 12/30/2024 [facility] DATE CREATED AUTHOR AUTHOR'S ORGANIZ ATION 12/30/2024 [facility] <item> Privacy Markings (unrecogniz ed section and content) Section Author: Kaila Gong PROHIBITION ON REDISCLOSURE OF CONFIDENTIAL INFORMATION This notice accompanies a disclosure of information concerning a client made to you with the consent of such client. Care Teams (unrecognized sec tion and content) [employer] Print[employer] Stencil Preparer Relationship Specialty Start Date End Date Richy Emerson MD PCP - General Family Medicine 07/31/16 [employer] Stencil Preparer Relationship Specialty Start Date End Date Richy Emerson PCP - General 07/21/09 [employer] Stencil Preparer Relationship Specialty Start Date End Date Richy Emerson PCP - General 07/21/09 [employer] Stencil Preparer Relationship Specialty Start Date End Date Richy Emerson PCP - General 07/21/09 [employer] Print[employer] Stencil Preparer Relationship Specialty Start Date End Date Richy Emerson PCP - General 07/21/09 [employer] Print[employer] Stencil Preparer Relationship Specialty Start Date End Date Richy Emerson MD PCP - General Family Medicine 07/31/16 [employer] Stencil Preparer Relationship Specialty Start Date End Date Richy Emerson MD PCP - General Family Medicine 07/31/16 [employer] Stencil Preparer Relationship Specialty Start Date End Date Richy Emerson PCP - General 07/21/09 [employer] Print[employer] Stencil Preparer Relationship Specialty Start Date End Date Richy Emerson PCP - General 07/21/09 [employer] Print[employer] Stencil Preparer Relationship Specialty Start Date End Date Richy Emerson PCP - General 07/21/09 Screen Printing Stencil Preparer Relationship Specialty Start Date End Date Richy Emerson MD PCP - General Family Medicine 07/31/16 [employer] Print[employer] Stencil Preparer Relationship Specialty Start Date End Date Richy Emerson PCP - General 07/21/09 Screen Print[employer] Stencil Preparer Relationship Specialty Start Date End Date Richy Emerson PCP - General 07/21/09 [employer] Stencil Preparer Relationship Specialty Start Date End Date Richy Emerson MD PCP - General Family Medicine 07/31/16 [employer] Stencil Preparer Relationship Specialty Start Date End Date Richy Emerson PCP - General 07/21/09 Screen Print[employer] Stencil Preparer Relationship Specialty Start Date End Date Richy Emerson PCP - General 07/21/09 Screen Printing Stencil Preparer Relationship Specialty Start Date End Date Richy Emerson MD [address] [place] [id number] PCP - General Family Medicine 06/20/21 [employer] Printing Stencil Preparer Relationship Specialty Start Date End Date Richy Emerson MD [address] [place] [phone] PCP - General Family Medicine 06/20/21 Screen Printing Stencil Preparer Relationship Specialty Start Date End Date Ricyh Emerson MD [address] [place] [phone] PCP - General Family Medicine 06/20/21 Screen Printing Stencil Preparer Relationship Specialty Start Date End Date Richy Emerson MD [address] [place] [address] PCP - General Family Medicine 06/20/21 [employer] Print[employer] Stencil Preparer Relationship Specialty Start Date End Date Richy Emerson PCP - General 07/21/09 Screen Printing Stencil Preparer Relationship Specialty Start Date End Date Gunjan Godoy MD [address] [place] [phone] PCP - General Internal Medicine 02/05/23 Screen Printing Stencil Preparer Relationship Specialty Start Date End Date Richy Emerson PCP - General 07/21/09 [employer] Print[employer] Stencil Preparer Relationship Specialty Start Date End Date Gunjan Godoy MD [address] [place] [phone] PCP - General Internal Medicine 02/05/23 Screen Printing Stencil Preparer Relationship Specialty Start Date End Date Gunjan Godoy MD [address] [place] [phone] PCP - General Internal Medicine 02/05/23 Screen Printing Stencil Preparer Relationship Specialty Start Date End Date Richy Emerson PCP - General 07/21/09 Screen Printing Stencil Preparer Relationship Specialty Start Date End Date Gunjan Godoy MD [address] [place] [phone] PCP - General Internal Medicine 02/05/23 Screen Printing Stencil Preparer Relationship Specialty Start Date End Date Gunjan Godoy MD [address] [place] [phone] PCP - General Internal Medicine 02/05/23 Screen Printing Stencil Preparer Relationship Specialty Start Date End Date Gunjan Godoy MD [address] [place] [phone] PCP - General Internal Medicine 02/05/23 Screen Printing Stencil Preparer Relationship Specialty Start Date End Date Gunjan Godoy MD [address] [place] [phone] PCP - General Internal Medicine 02/24/23 Jim Holder MD [address] [place] [phone] Referring Physician Otolaryngology (ENT) 02/24/23 Screen Printing Stencil Preparer Relationship Specialty Start Date End Date Gunjan Godoy MD [address] [place] [phone] PCP - General Internal Medicine 03/24/23 Screen Printing Stencil Preparer Relationship Specialty Start Date End Date Gunjan Godoy MD [address] [place] [phone] PCP - General Internal Medicine 02/24/23 Jim Holder MD [address] [place] [address] [address] [place] [address] Referring Physician Otolaryngology (ENT) 02/24/23 Screen Printing Stencil Preparer Relationship Specialty Start Date End Date Gunjan Godoy MD [address] [place] [address], [place] [phone] PCP - General Internal Medicine 02/05/23 Screen Printing Stencil Preparer Relationship Specialty Start Date End Date Gunjan Godoy MD [address] [place] [address], [place] [phone] PCP - General Internal Medicine 02/05/23 Screen Printing Stencil Preparer Relationship Specialty Start Date End Date SgrodgerGunjan MD [address] [place] [phone] PCP - General Internal Medicine 02/05/23 Screen Printing Stencil Preparer Relationship Specialty Start Date End Date Gunjan Godoy MD [address] [place] [address] 32264 PCP - General Internal Medicine 03/24/23 Screen Printing Stencil Preparer Relationship Specialty Start Date End Date Gunjan Godoy MD [address] [place] [address] 61847 PCP - General Internal Medicine 03/24/[address] [place] [address] 21588 Registered Dietitian Nutrition 06/06/23 Screen Printing Stencil Preparer Relationship Specialty Start Date End Date Gunjan Godoy MD [address] [place] [address] 71365 PCP - General Internal Medicine 03/24/[address] [place] [address] 06607 Registered Dietitian Nutrition 06/06/23 Screen Printing Stencil Preparer Relationship Specialty Start Date End Date Gunjan Godoy MD [address] [place] [phone] PCP - General Internal Medicine 02/05/23 Screen Printing Stencil Preparer Relationship Specialty Start Date End Date Gunjan Godoy MD [address] [place] [address] 67783 PCP - General Internal Medicine 03/24/[address] [place] [address] 99453 Registered Dietitian Nutrition 06/06/23 Screen Printing Stencil Preparer Relationship Specialty Start Date End Date Gunjan Godoy MD [address] [place] [address] 35716 PCP - General Internal Medicine 03/24/[address] [place] [address] 71200 Registered Dietitian Nutrition 06/06/23 Screen Printing Stencil Preparer Relationship Specialty Start Date End Date Gunjan Godoy MD [address] [place] [address] 14834 PCP - General Internal Medicine 03/24/[address] [place] [address] 25583 Registered Dietitian Nutrition 06/06/23 Screen Printing Stencil Preparer Relationship Specialty Start Date End Date Gunjan Godoy MD [address] [place] [address] 11697 PCP - General Internal Medicine 03/24/[address] [place] [address] 42956 Registered Dietitian Nutrition 06/06/23 Screen Printing Stencil Preparer Relationship Specialty Start Date End Date Gunjan Godoy MD [address] [place] [address] 90928 PCP - General Internal Medicine 03/24/[address] [place] [address] 13892 Registered Dietitian Nutrition 06/06/23 Screen Printing Stencil Preparer Relationship Specialty Start Date End Date Gunjan Godoy MD [address] [place] [address] 90634 PCP - General Internal Medicine 03/24/[address] [place] [address] 52058 Registered Dietitian Nutrition 06/06/23 Screen Printing Stencil Preparer Relationship Specialty Start Date End Date Gunjan Godoy MD [address] [place] [address] 85820 PCP - General Internal Medicine 03/24/[address] [place] [address] 74149 Registered Dietitian Nutrition 06/06/23 Screen Printing Stencil Preparer Relationship Specialty Start Date End Date Gunjan Godoy MD [address] [place] [address] 97879 PCP - General Internal Medicine 03/24/[address] [place] [address] 90109 Registered Dietitian Nutrition 06/06/23 Screen Printing Stencil Preparer Relationship Specialty Start Date End Date Gunjan Godoy MD [address] [place] [address] 29916 PCP - General Internal Medicine 03/24/[address] [place] [address] 13365 Registered Dietitian Nutrition 06/06/23 Screen Printing Stencil Preparer Relationship Specialty Start Date End Date Gunjan Godoy MD [address] [place] [address] 21710 PCP - General Internal Medicine 03/24/[address] [place] [address] 16426 Registered Dietitian Nutrition 06/06/23 Screen Printing Stencil Preparer Relationship Specialty Start Date End Date Gunjan Godoy MD [address] [place] [phone] PCP - General Internal Medicine 02/05/23 Screen Printing Stencil Preparer Relationship Specialty Start Date End Date Gunjan Godoy MD [address] [place] [address] [phone] PCP - General Internal Medicine 03/24/[address] [place] [address] 80381 Registered Dietitian Nutrition 06/06/23 Screen Printing Stencil Preparer Relationship Specialty Start Date End Date Gunjan Godoy MD [address] [place] [phone] PCP - General Internal Medicine 02/05/23 Screen Printing Stencil Preparer Relationship Specialty Start Date End Date Gunjan Godoy MD [address] [place] [address] [phone] PCP - General Internal Medicine 02/05/23 Screen Printing Stencil Preparer Relationship Specialty Start Date End Date Gunjan Godoy MD [address] [place] [phone] PCP - General Internal Medicine 02/05/23 Screen Printing Stencil Preparer Relationship Specialty Start Date End Date Gunjan Godoy MD [address] [place] [address] [phone] PCP - General Internal Medicine 02/05/23 Screen Printing Stencil Preparer Relationship Specialty Start Date End Date Gavin Hammonds CNP [address] [address] PCP - General Nurse Practitioner 09/25/23 Jim Holder MD [address] [address] Referring Physician Otolaryngology (ENT) 02/24/23 Screen Printing Stencil Preparer Relationship Specialty Start Date End Date Ulices Clark DO [facility] [address] [address] PCP - General Family Medicine 10/23/23 Jim Holder MD [address] [address] Referring Physician Otolaryngology (ENT) 02/24/23 Screen Printing Stencil Preparer Relationship Specialty Start Date End Date Gunjan Godoy MD [address] [place] [address] 63804 PCP - General Internal Medicine 03/24/[address] [place] [phone] Registered Dietitian Nutrition 06/06/23 Screen Printing Stencil Preparer Relationship Specialty Start Date End Date Richy Emerson PCP - General 07/21/09 03/23/23 Screen Printing Stencil Preparer Relationship Specialty Start Date End Date Richy Emerson PCP - General 07/21/09 03/23/23 Screen Printing Stencil Preparer Relationship Specialty Start Date End Date Richy Emerson PCP - General 07/21/09 03/23/23 Screen Printing Stencil Preparer Relationship Specialty Start Date End Date Richy Emerson PCP - General 07/21/09 03/23/23 Screen Printing Stencil Preparer Relationship Specialty Start Date End Date Gunjan Godoy MD [address] [place] [phone] PCP - General Internal Medicine 02/05/23 Screen Printing Stencil Preparer Relationship Specialty Start Date End Date Gunjan Godoy MD [address] [place] [address] 01111 PCP - General Internal Medicine 03/24/[address] [place] [address] 51895 Registered Dietitian Nutrition 06/06/23 Screen Printing Stencil Preparer Relationship Specialty Start Date End Date Gunjan Godoy MD [address] [place] [address] 13918 PCP - General Internal Medicine 03/24/[address] [facility] [place] [address] Registered Dietitian Nutrition 06/06/23 Screen Printing Stencil Preparer Relationship Specialty Start Date End Date Gunjan Godoy MD [address] [place] [address] PCP - General Internal Medicine 03/24/[address] [facility] [place] [address] Registered Dietitian Nutrition 06/06/23 Screen Printing Stencil Preparer Relationship Specialty Start Date End Date Ulices Clark DO [address] [place] [address] 19330 PCP - General Family Medicine 10/23/23 Jim Holder MD [address] [address] Referring Physician Otolaryngology (ENT) 02/24/23 Screen Printing Stencil Preparer Relationship Specialty Start Date End Date Ulices Clark DO [address] [place] [address] 40064 PCP - General Family Medicine 10/23/23 Jim Holder MD [address] [address] Referring Physician Otolaryngology (ENT) 02/24/23 Screen Printing Stencil Preparer Relationship Specialty Start Date End Date Ulices Clark DO [facility] [address] [address] PCP - General Family Medicine 10/23/23 Jim Holder MD [address] [place] [address] 25948 Referring Physician Otolaryngology (ENT) 02/24/23 Screen Printing Stencil Preparer Relationship Specialty Start Date End Date Ulices Clark DO [address] [place] [address] 46961 PCP - General Family Medicine 10/23/23 Jim Holder MD [address] [place] [address] 42158 Referring Physician Otolaryngology (ENT) 02/24/23 Screen Printing Stencil Preparer Relationship Specialty Start Date End Date Ulices Clark DO [address] [place] [address] 19142 PCP - General Family Medicine 10/23/23 Jim Holder MD [address] [facility] [address] [place] [address] 29561 Referring Physician Otolaryngology (ENT) 02/24/23 Screen Printing Stencil Preparer Relationship Specialty Start Date End Date Gunjan Godoy MD [address] [place] [address] [phone] PCP - General Internal Medicine 02/05/23 Screen Printing Stencil Preparer Relationship Specialty Start Date End Date Ulices lCark DO [address] [place] [address] 86698 PCP - General Family Medicine 10/23/23 Jim Holder MD [address] [place] [address] 73736 Referring Physician Otolaryngology (ENT) 02/24/23 Screen Printing Stencil Preparer Relationship Specialty Start Date End Date Gunjan Godoy MD [address] [place] [address] 11022 PCP - General Internal Medicine 03/24/[address] [place] [address] 28741 Registered Dietitian Nutrition 06/06/23 Screen Printing Stencil Preparer Relationship Specialty Start Date End Date Ulices Clark DO [facility] [address] [address] PCP - General Family Medicine 10/23/23 Jim [address] [facility] [address] [place] [address] 47246 Referring Physician Otolaryngology (ENT) 02/24/23 Screen Printing Stencil Preparer Relationship Specialty Start Date End Date Ulices Clark DO [address] [place] [address] 93577 PCP - General Family Medicine 10/23/23 Jim [address] [facility] [address] [place] [address] 21516 Referring Physician Otolaryngology (ENT) 02/24/23 Screen Printing Stencil Preparer Relationship Specialty Start Date End Date Gunjan Godoy MD [address] [place] [address] 54425 PCP - General Internal Medicine 03/24/[address] [facility] [place] [address] Registered Dietitian Nutrition 06/06/23 Screen Printing Stencil Preparer Relationship Specialty Start Date End Date Gunjan Godoy MD [address] [place] [address] 89086 PCP - General Internal Medicine 03/24/[address] [place] [address] 37548 Registered Dietitian Nutrition 06/06/23 Screen Printing Stencil Preparer Relationship Specialty Start Date End Date Gunjan Godoy MD [address] [place] [address] 72279 PCP - General Internal Medicine 03/24/[address] [place] [address] 02962 Registered Dietitian Nutrition 06/06/23 Screen Printing Stencil Preparer Relationship Specialty Start Date End Date Generic Provider, [place] [address] PCP - General Waste Examiner 11/15/23 Screen Printing Stencil Preparer Relationship Specialty Start Date End Date Ulices Clark DO [facility] [address] [address] PCP - General Family Medicine 10/23/23 Jim Holder MD [address] [place] [address] [address] Referring Physician Otolaryngology (ENT) 02/24/23 Screen Printing Stencil Preparer Relationship Specialty Start Date End Date Ulices Clark DO [facility] [address] [address] PCP - General Family Medicine 10/23/23 Jim Holder MD [address] [place] [address] 20870 Referring Physician Otolaryngology (ENT) 02/24/23 Screen Printing Stencil Preparer Relationship Specialty Start Date End Date Ulices Clark DO [address] [place] [phone] PCP - General Geriatric Medicine 04/01/24 Screen Printing Stencil Preparer Relationship Specialty Start Date End Date Ulices Clark DO [address] [place] [phone] PCP - General Geriatric Medicine 04/01/24 Screen Printing Stencil Preparer Relationship Specialty Start Date End Date Ulices Clark DO [address] [address] PCP - General Family Medicine 10/23/23 Jim Holder MD 335 [address] [place] [address] 04975 Referring Physician Otolaryngology (ENT) 02/24/23 Screen Printing Stencil Preparer Relationship Specialty Start Date End Date Ulices Clark DO [address] [address] PCP - General Family Medicine 10/23/23 Jim Holder MD [address] [place] [address] 45948 Referring Physician Otolaryngology (ENT) 02/24/23 Screen Printing Stencil Preparer Relationship Specialty Start Date End Date Ulices Clark DO [facility] [address] [address] PCP - General Family Medicine 10/23/23 Jim Holder MD [address] [address]34 Referring Physician Otolaryngology (ENT) 02/24/23 Screen Printing Stencil Preparer Relationship Specialty Start Date End Date Ulices Clark DO [address] [place], [place] [phone] PCP - General Family Medicine 10/23/23 Jim Holder MD [address] [address]291 Referring Physician Otolaryngology (ENT) 02/24/23 Screen Printing Stencil Preparer Relationship Specialty Start Date End Date Ulices Clark DO [address] [place] [address] 0[address]64 PCP - General Family Medicine 05/22/24 Screen Printing Stencil Preparer Relationship Specialty Start Date End Date Ulices Clark DO [address] [place] [address] 06966 PCP - General Family Medicine 05/22/24 Screen Printing Stencil Preparer Relationship Specialty Start Date End Date Ulices Clark DO [address] [place] [address] 13624 PCP - General Family Medicine 05/22/24 Screen Printing Stencil Preparer Relationship Specialty Start Date End Date Ulices Clark DO [address] [place] [address], [place] [address] PCP - General Family Medicine 10/23/23 Jim Holder MD [address] [place] [address] 16902 Referring Physician Otolaryngology (ENT) 02/24/23 Yobani Bojorquez MD [address] [place] [phone] Referring Physician Pulmonary Disease 06/07/24 Screen Printing Stencil Preparer Relationship Specialty Start Date End Date Ulices Clark DO [address] [address] PCP - General Family Medicine 10/23/23 Jim Holder MD [address] [place] [address] 69285 Referring Physician Otolaryngology (ENT) 02/24/23 Yobani Bojorquez MD [address] [place] [phone] Referring Physician Pulmonary Disease 06/07/24 Screen Printing Stencil Preparer Relationship Specialty Start Date End Date Ulices Clark DO [address] [address]862 PCP - General Family Medicine 10/23/23 Jim Holder MD [address] [place] [address] 55817 Referring Physician Otolaryngology (ENT) 02/24/23 Yobani Bojorquez MD [address] [phone] Referring Physician Pulmonary Disease 06/07/24 Nasir Melissa MD [address] [place] [address] [phone] Urology 06/23/24 Screen Printing Stencil Preparer Relationship Specialty Start Date End Date Ulices Clark DO [facility] [address] [address] PCP - General Family Medicine 10/23/23 Jim Holder MD [address] [place] [address]2860 Referring Physician Otolaryngology (ENT) 02/24/23 Yobani Bojorquez MD [address] [phone] Referring Physician Pulmonary Disease 06/07/24 Nasir Melissa MD [address] [place] [address] [phone] Urology 06/23/24 Screen Printing Stencil Preparer Relationship Specialty Start Date End Date Ulices Clark DO PCP - General Geriatric Medicine 04/01/24 Screen Printing Stencil Preparer Relationship Specialty Start Date End Date Ulices Clark DO [facility] [address] [address] PCP - General Family Medicine 10/23/23 Jim Holder MD 335 [facility] [address] [place] [address] Referring Physician Otolaryngology (ENT) 02/24/23 Yobani Bojorquez MD [address] [place] [phone] Referring Physician Pulmonary Disease 06/07/24 Nasir Melissa MD [address] [phone] Urology 06/23/24 Screen Printing Stencil Preparer Relationship Specialty Start Date End Date Ulices Clark DO [address] [place] [address]24 PCP - General Family Medicine 10/23/23 Jim Holder MD 335 [facility] [address] [place] [address] Referring Physician Otolaryngology (ENT) 02/24/23 Yobani Bojorquez MD [address] [place] [phone] Referring Physician Pulmonary Disease 06/07/24 Nasir Melissa MD [address] [phone] Urology 06/23/24 Screen Printing Stencil Preparer Relationship Specialty Start Date End Date Ulices Clark DO PCP - General Geriatric Medicine 04/01/24 Screen Printing Stencil Preparer Relationship Specialty Start Date End Date Ulices Clark DO PCP - General Geriatric Medicine 04/01/24 Screen Printing Stencil Preparer Relationship Specialty Start Date End Date Ulices Clark DO [address] [address] PCP - General Family Medicine 10/23/23 Jim Holder MD [address] [place] [address] [phone] Referring Physician Otolaryngology (ENT) 02/24/23 Yobani Bojorquez MD [address] [place] [address] 1[address] [place] [address] Referring Physician Pulmonary Disease 06/07/24 Nasir Melissa MD [address] [place] [phone] Urology 06/23/24 Screen Printing Stencil Preparer Relationship Specialty Start Date End Date Gunjan Godoy MD [address] [place] [address] 98272 PCP - General Internal Medicine 03/24/[address] [place] [address] Registered Dietitian Nutrition 06/06/23 Screen Printing Stencil Preparer Relationship Specialty Start Date End Date Ulices Clark DO [address] [address] PCP - General Family Medicine 10/23/23 Jim Holder [facility] [address] [facility] [address] [address] Referring Physician Otolaryngology (ENT) 02/24/23 Yobani Bojorquez MD [address] [place] [address] 1st [place] [address] Referring Physician Pulmonary Disease 06/07/24 Nasir Melissa MD [address] [place] [phone] Urology 06/23/24 Screen Printing Stencil Preparer Relationship Specialty Start Date End Date Gunjan Godoy MD [address] [place] [address] 03151 PCP - General Internal Medicine 03/24/[address] [facility] [place] [address] Registered Dietitian Nutrition 06/06/23 Screen Printing Stencil Preparer Relationship Specialty Start Date End Date Gunjan Godoy MD [address] [place] [address] 54495 PCP - General Internal Medicine 03/24/[address] [facility] [place] [address] Registered Dietitian Nutrition 06/06/23 Screen Printing Stencil Preparer Relationship Specialty Start Date End Date Ulices Clark DO [address] [address] PCP - General Family Medicine 10/23/23 Jim Holder MD [address] [address] Referring Physician Otolaryngology (ENT) 02/24/23 Yobani Bojorquez MD [address] [place] [phone] Referring Physician Pulmonary Disease 06/07/24 Nasir Melissa MD [address] [place] [address] [phone] Urology 06/23/24 Screen Printing Stencil Preparer Relationship Specialty Start Date End Date Ulices Clark DO [address] [address] PCP - General Family Medicine 10/23/23 Jim Holder MD [address] [place] [address] 13583 Referring Physician Otolaryngology (ENT) 02/24/23 Yobani Bojorquez MD [address] [place] [phone] Referring Physician Pulmonary Disease 06/07/24 Nasir Melissa MD [address] [place] [phone] Urology 06/23/24 Screen Printing Stencil Preparer Relationship Specialty Start Date End Date Ulices Clark DO [address] [address] PCP - General Family Medicine 05/22/24 Screen Printing Stencil Preparer Relationship Specialty Start Date End Date Gunjan Godoy MD [address] [place] [address] 30438 PCP - General Internal Medicine 03/24/[address] [place] [address] Registered Dietitian Nutrition 06/06/23 Screen Printing Stencil Preparer Relationship Specialty Start Date End Date Ulices Clark DO [address] [address] PCP - General Family Medicine 10/23/23 Jim Holder MD [address] [address] Referring Physician Otolaryngology (ENT) 02/24/23 Yobani Bojorquez MD [address] [place] [address] 1st [place] [phone] Referring Physician Pulmonary Disease 06/07/24 Nasir Melissa MD [address] [place] [address] [phone] Urology 06/23/24 Screen Printing Stencil Preparer Relationship Specialty Start Date End Date Ulices Clark DO [facility] [address] [address] PCP - General Family Medicine 10/23/23 Jim Holder MD [address] [address] Referring Physician Otolaryngology (ENT) 02/24/23 Yobani Bojorquez MD [address] [phone] Referring Physician Pulmonary Disease 06/07/24 Nasir Melissa MD [address] [phone] Urology 06/23/24 Screen Printing Stencil Preparer Relationship Specialty Start Date End Date Gunjan Godoy MD [address] [place] [address] [phone] PCP - General Internal Medicine 03/24/[address] [place] [address] Registered Dietitian Nutrition 06/06/23 Screen Printing Stencil Preparer Relationship Specialty Start Date End Date Ulices Clark DO [address] [address] PCP - General Family Medicine 10/23/23 Jim Holder MD [address] [address] Referring Physician Otolaryngology (ENT) 02/24/23 Yobani Bojorquez MD [address] [phone] Referring Physician Pulmonary Disease 06/07/24 Nasir Melissa MD [address] [phone] Urology 06/23/24 Screen Printing Stencil Preparer Relationship Specialty Start Date End Date Ulices Clark DO 1720 [place] [address] PCP - General Family Medicine 09/29/[address] [facility] [place] [address] Registered Dietitian Nutrition 06/06/23 Screen Printing Stencil Preparer Relationship Specialty Start Date End Date Gunjan Godoy MD [address] [place] [address] 38495 PCP - General Internal Medicine 03/24/23 09/28/24 Ulices Clark DO [facility] [place] [phone] PCP - General Family Medicine 09/29/[address] [place] [address]73 Registered Dietitian Nutrition 06/06/23 Screen Printing Stencil Preparer Relationship Specialty Start Date End Date Ulices Clark DO [address] [place] [phone] PCP - General Family Medicine 09/29/[address] [place], [place] [phone] Registered Dietitian Nutrition 06/06/23 Screen Printing Stencil Preparer Relationship Specialty Start Date End Date Ulices Clark DO [address] [place] [phone] PCP - General Family Medicine 09/29/[address] [place] [address] 23827 Registered Dietitian Nutrition 06/06/23 Screen Printing Stencil Preparer Relationship Specialty Start Date End Date Ulices Clark DO [address]20 [place] [address] PCP - General Family Medicine 09/29/[address] [place], [place] [phone] Registered Dietitian Nutrition 06/06/23 Screen Printing Stencil Preparer Relationship Specialty Start Date End Date Ulices Clark DO [facility] [address] [address] PCP - General Family Medicine 10/23/23 Jim Holder MD [address] [address] Referring Physician Otolaryngology (ENT) 02/24/23 Yobani Bojorquez MD [address] [place] [address] 1[address] [place] [phone] Referring Physician Pulmonary Disease 06/07/24 Nasir Melissa MD [address] [place] [address] [phone] Urology 06/23/24 Screen Printing Stencil Preparer Relationship Specialty Start Date End Date Ulices Clark DO [facility] [address] [address] PCP - General Family Medicine 10/23/23 Jim Holder MD [address] [place] [address] 71103 Referring Physician Otolaryngology (ENT) 02/24/23 Yobani Bojorquez MD [address] [phone] Referring Physician Pulmonary Disease 06/07/24 Nasir Melissa MD [address] [phone] Urology 06/23/24 Screen Printing Stencil Preparer Relationship Specialty Start Date End Date Ulices Clark DO [address] [address] PCP - General Family Medicine 10/23/23 Jim Holder MD [address] [address] Referring Physician Otolaryngology (ENT) 02/24/23 Yobani Bojorquez MD [address] [phone] Referring Physician Pulmonary Disease 06/07/24 Nasir Melissa MD [address] [place] [phone] Urology 06/23/24 [employer] Stencil Preparer Relationship Specialty Start Date End Date Ulices Clark DO [facility] [address] [address] PCP - General Family Medicine 10/23/23 Jim Holder MD [address] [address] Referring Physician Otolaryngology (ENT) 02/24/23 Yobani Bojorquez MD [address] [phone] Referring Physician Pulmonary Disease 06/07/24 Nasir Melissa MD [address] [place] [phone] Urology 06/23/24 [employer]ing Stencil Preparer Relationship Specialty Start Date End Date Ulices Clark DO [address] [address] PCP - General Family Medicine 10/23/23 Jim Holder MD [address] [place] [phone] Referring Physician Otolaryngology (ENT) 02/24/23 Yobani Bojorquez MD [address] [phone] Referring Physician Pulmonary Disease 06/07/24 Nasir Melissa MD [address] [place] [phone] Urology 06/23/24 [employer]ing Stencil Preparer Relationship Specialty Start Date End Date Ulices Clark [address] [address] PCP - General Family Medicine 05/22/24 [employer] Stencil Preparer Relationship Specialty Start Date End Date Ulices Clark DO [address] [address] PCP - General Family Medicine 10/23/23 Jim Holder MD [facility] Adriano Kaba [address] [place] [phone] Referring Physician Otolaryngology (ENT) 02/24/23 Yobani Bojorquez MD [address] [place] [address] 1[address] [place] [phone] Referring Physician Pulmonary Disease 06/07/24 Nasir Melissa MD [address] [place] [phone] Urology 06/23/24 Source Comments (unrecognize d section and content) In the event this informatio n is protected by the Federal Confidentiality of Alcohol and Drug Abuse Patient Records regulations: The Federal rules restrict any use of the information to criminally investigate or prosecute any alcohol or drug abuse patient.[facility] CenterIn the event this information is protected by the Federal Confidentiality of Alcohol and Drug Abuse Patient Records regulations: The Federal rules restrict any use of the information to criminally investigate or prosecute any alcohol or drug abuse patient.[facility] CenterIn the event this information is protected by the Federal Confidentiality of Alcohol and Drug Abuse Patient Records regulations: The Federal rules restrict any use of the information to criminally investigate or prosecute any alcohol or drug abuse patient.[facility] CenterIn the event this information is protected by the Federal Confidentiality of Alcohol and Drug Abuse Patient Records regulations: The Federal rules restrict any use of the information to criminally investigate or prosecute any alcohol or drug abuse patient.[facility] CenterIn the event this information is protected by the Federal Confidentiality of Alcohol and Drug Abuse Patient Records regulations: The Federal rules restrict any use of the information to criminally investigate or prosecute any alcohol or drug abuse patient.[facility] CenterIn the event this information is protected by the Federal Confidentiality of Alcohol and Drug Abuse Patient Records regulations: The Federal rules restrict any use of the information to criminally investigate or prosecute any alcohol or drug abuse patient.[facility] CenterIn the event this information is protected by the Federal Confidentiality of Alcohol and Drug Abuse Patient Records regulations: The Federal rules restrict any use of the information to criminally investigate or prosecute any alcohol or drug abuse patient.[facility] CenterIn the event this information is protected by the Federal Confidentiality of Alcohol and Drug Abuse Patient Records regulations: The Federal rules restrict any use of the information to criminally investigate or prosecute any alcohol or drug abuse patient.[facility] CenterIn the event this information is protected by the Federal Confidentiality of Alcohol and Drug Abuse Patient Records regulations: The Federal rules restrict any use of the information to criminally investigate or prosecute any alcohol or drug abuse patient.[facility] CenterIn the event this information is protected by the Federal Confidentiality of Alcohol and Drug Abuse Patient Records regulations: The Federal rules restrict any use of the information to criminally investigate or prosecute any alcohol or drug abuse patient.[facility] CenterIn the event this information is protected by the Federal Confidentiality of Alcohol and Drug Abuse Patient Records regulations: The Federal rules restrict any use of the information to criminally investigate or prosecute any alcohol or drug abuse patient.[facility] CenterIn the event this information is protected by the Federal Confidentiality of Alcohol and Drug Abuse Patient Records regulations: The Federal rules restrict any use of the information to criminally investigate or prosecute any alcohol or drug abuse patient.[facility] CenterIn the event this information is protected by the Federal Confidentiality of Alcohol and Drug Abuse Patient Records regulations: The Federal rules restrict any use of the information to criminally investigate or prosecute any alcohol or drug abuse patient.[facility] CenterIn the event this information is protected by the Federal Confidentiality of Alcohol and Drug Abuse Patient Records regulations: The Federal rules restrict any use of the information to criminally investigate or prosecute any alcohol or drug abuse patient.[facility] CenterIn the event this information is protected by the Federal Confidentiality of Alcohol and Drug Abuse Patient Records regulations: The Federal rules restrict any use of the information to criminally investigate or prosecute any alcohol or drug abuse patient.[facility] CenterIn the event this information is protected by the Federal Confidentiality of Alcohol and Drug Abuse Patient Records regulations: The Federal rules restrict any use of the information to criminally investigate or prosecute any alcohol or drug abuse patient.[facility] CenterIn the event this information is protected by the Federal Confidentiality of Alcohol and Drug Abuse Patient Records regulations: The Federal rules restrict any use of the information to criminally investigate or prosecute any alcohol or drug abuse patient.[facility] CenterIn the event this information is protected by the Federal Confidentiality of Alcohol and Drug Abuse Patient Records regulations: The Federal rules restrict any use of the information to criminally investigate or prosecute any alcohol or drug abuse patient.[facility] CenterIn the event this information is protected by the Federal Confidentiality of Alcohol and Drug Abuse Patient Records regulations: The Federal rules restrict any use of the information to criminally investigate or prosecute any alcohol or drug abuse patient.[facility] CenterIn the event this information is protected by the Federal Confidentiality of Alcohol and Drug Abuse Patient Records regulations: The Federal rules restrict any use of the information to criminally investigate or prosecute any alcohol or drug abuse patient.[facility] CenterIn the event this information is protected by the Federal Confidentiality of Alcohol and Drug Abuse Patient Records regulations: The Federal rules restrict any use of the information to criminally investigate or prosecute any alcohol or drug abuse patient.[facility] CenterIn the event this information is protected by the Federal Confidentiality of Alcohol and Drug Abuse Patient Records regulations: The Federal rules restrict any use of the information to criminally investigate or prosecute any alcohol or drug abuse patient.[facility] CenterIn the event this information is protected by the Federal Confidentiality of Alcohol and Drug Abuse Patient Records regulations: The Federal rules restrict any use of the information to criminally investigate or prosecute any alcohol or drug abuse patient.[facility] CenterIn the event this information is protected by the Federal Confidentiality of Alcohol and Drug Abuse Patient Records regulations: The Federal rules restrict any use of the information to criminally investigate or prosecute any alcohol or drug abuse patient.[facility] CenterIn the event this information is protected by the Federal Confidentiality of Alcohol and Drug Abuse Patient Records regulations: The Federal rules restrict any use of the information to criminally investigate or prosecute any alcohol or drug abuse patient.[facility] CenterIn the event this information is protected by the Federal Confidentiality of Alcohol and Drug Abuse Patient Records regulations: The Federal rules restrict any use of the information to criminally investigate or prosecute any alcohol or drug abuse patient.[facility] CenterIn the event this information is protected by the Federal Confidentiality of Alcohol and Drug Abuse Patient Records regulations: The Federal rules restrict any use of the information to criminally investigate or prosecute any alcohol or drug abuse patient.[facility] CenterIn the event this information is protected by the Federal Confidentiality of Alcohol and Drug Abuse Patient Records regulations: The Federal rules restrict any use of the information to criminally investigate or prosecute any alcohol or drug abuse patient.[facility] CenterIn the event this information is protected by the Federal Confidentiality of Alcohol and Drug Abuse Patient Records regulations: The Federal rules restrict any use of the information to criminally investigate or prosecute any alcohol or drug abuse patient.[facility] CenterIn the event this information is protected by the Federal Confidentiality of Alcohol and Drug Abuse Patient Records regulations: The Federal rules restrict any use of the information to criminally investigate or prosecute any alcohol or drug abuse patient.[facility] CenterIn the event this information is protected by the Federal Confidentiality of Alcohol and Drug Abuse Patient Records regulations: The Federal rules restrict any use of the information to criminally investigate or prosecute any alcohol or drug abuse patient.[facility] CenterIn the event this information is protected by the Federal Confidentiality of Alcohol and Drug Abuse Patient Records regulations: The Federal rules restrict any use of the information to criminally investigate or prosecute any alcohol or drug abuse patient.[facility] CenterIn the event this information is protected by the Federal Confidentiality of Alcohol and Drug Abuse Patient Records regulations: The Federal rules restrict any use of the information to criminally investigate or prosecute any alcohol or drug abuse patient.[facility] CenterIn the event this information is protected by the Federal Confidentiality of Alcohol and Drug Abuse Patient Records regulations: The Federal rules restrict any use of the information to criminally investigate or prosecute any alcohol or drug abuse patient.[facility] CenterIn the event this information is protected by the Federal Confidentiality of Alcohol and Drug Abuse Patient Records regulations: The Federal rules restrict any use of the information to criminally investigate or prosecute any alcohol or drug abuse patient.[facility] CenterIn the event this information is protected by the Federal Confidentiality of Alcohol and Drug Abuse Patient Records regulations: The Federal rules restrict any use of the information to criminally investigate or prosecute any alcohol or drug abuse patient.[facility] CenterIn the event this information is protected by the Federal Confidentiality of Alcohol and Drug Abuse Patient Records regulations: The Federal rules restrict any use of the information to criminally investigate or prosecute any alcohol or drug abuse patient.[facility] CenterIn the event this information is protected by the Federal Confidentiality of Alcohol and Drug Abuse Patient Records regulations: The Federal rules restrict any use of the information to criminally investigate or prosecute any alcohol or drug abuse patient.[facility] CenterIn the event this information is protected by the Federal Confidentiality of Alcohol and Drug Abuse Patient Records regulations: The Federal rules restrict any use of the information to criminally investigate or prosecute any alcohol or drug abuse patient.[facility] CenterIn the event this information is protected by the Federal Confidentiality of Alcohol and Drug Abuse Patient Records regulations: The Federal rules restrict any use of the information to criminally investigate or prosecute any alcohol or drug abuse patient.[facility] CenterIn the event this information is protected by the Federal Confidentiality of Alcohol and Drug Abuse Patient Records regulations: The Federal rules restrict any use of the information to criminally investigate or prosecute any alcohol or drug abuse patient.[facility] CenterIn the event this information is protected by the Federal Confidentiality of Alcohol and Drug Abuse Patient Records regulations: The Federal rules restrict any use of the information to criminally investigate or prosecute any alcohol or drug abuse patient.[facility] CenterIn the event this information is protected by the Federal Confidentiality of Alcohol and Drug Abuse Patient Records regulations: The Federal rules restrict any use of the information to criminally investigate or prosecute any alcohol or drug abuse patient.[facility] CenterIn the event this information is protected by the Federal Confidentiality of Alcohol and Drug Abuse Patient Records regulations: The Federal rules restrict any use of the information to criminally investigate or prosecute any alcohol or drug abuse patient.[facility] CenterIn the event this information is protected by the Federal Confidentiality of Alcohol and Drug Abuse Patient Records regulations: The Federal rules restrict any use of the information to criminally investigate or prosecute any alcohol or drug abuse patient.[facility] CenterIn the event this information is protected by the Federal Confidentiality of Alcohol and Drug Abuse Patient Records regulations: The Federal rules restrict any use of the information to criminally investigate or prosecute any alcohol or drug abuse patient.[facility] CenterIn the event this information is protected by the Federal Confidentiality of Alcohol and Drug Abuse Patient Records regulations: The Federal rules restrict any use of the information to criminally investigate or prosecute any alcohol or drug abuse patient.[facility] CenterIn the event this information is protected by the Federal Confidentiality of Alcohol and Drug Abuse Patient Records regulations: The Federal rules restrict any use of the information to criminally investigate or prosecute any alcohol or drug abuse patient.[facility] CenterIn the event this information is protected by the Federal Confidentiality of Alcohol and Drug Abuse Patient Records regulations: The Federal rules restrict any use of the information to criminally investigate or prosecute any alcohol or drug abuse patient.[facility] CenterIn the event this information is protected by the Federal Confidentiality of Alcohol and Drug Abuse Patient Records regulations: The Federal rules restrict any use of the information to criminally investigate or prosecute any alcohol or drug abuse patient.[facility] CenterIn the event this information is protected by the Federal Confidentiality of Alcohol and Drug Abuse Patient Records regulations: The Federal rules restrict any use of the information to criminally investigate or prosecute any alcohol or drug abuse patient.[facility] CenterIn the event this information is protected by the Federal Confidentiality of Alcohol and Drug Abuse Patient Records regulations: The Federal rules restrict any use of the information to criminally investigate or prosecute any alcohol or drug abuse patient.[facility] CenterIn the event this information is protected by the Federal Confidentiality of Alcohol and Drug Abuse Patient Records regulations: The Federal rules restrict any use of the information to criminally investigate or prosecute any alcohol or drug abuse patient.[facility] CenterIn the event this information is protected by the Federal Confidentiality of Alcohol and Drug Abuse Patient Records regulations: The Federal rules restrict any use of the information to criminally investigate or prosecute any alcohol or drug abuse patient.[facility] CenterIn the event this information is protected by the Federal Confidentiality of Alcohol and Drug Abuse Patient Records regulations: The Federal rules restrict any use of the information to criminally investigate or prosecute any alcohol or drug abuse patient.[facility] CenterIn the event this information is protected by the Federal Confidentiality of Alcohol and Drug Abuse Patient Records regulations: The Federal rules restrict any use of the information to criminally investigate or prosecute any alcohol or drug abuse patient.[facility] CenterIn the event this information is protected by the Federal Confidentiality of Alcohol and Drug Abuse Patient Records regulations: The Federal rules restrict any use of the information to criminally investigate or prosecute any alcohol or drug abuse patient.[facility] CenterIn the event this information is protected by the Federal Confidentiality of Alcohol and Drug Abuse Patient Records regulations: The Federal rules restrict any use of the information to criminally investigate or prosecute any alcohol or drug abuse patient.[facility] CenterIn the event this information is protected by the Federal Confidentiality of Alcohol and Drug Abuse Patient Records regulations: The Federal rules restrict any use of the information to criminally investigate or prosecute any alcohol or drug abuse patient.[facility] CenterIn the event this information is protected by the Federal Confidentiality of Alcohol and Drug Abuse Patient Records regulations: The Federal rules restrict any use of the information to criminally investigate or prosecute any alcohol or drug abuse patient.[facility] CenterIn the event this information is protected by the Federal Confidentiality of Alcohol and Drug Abuse Patient Records regulations: The Federal rules restrict any use of the information to criminally investigate or prosecute any alcohol or drug abuse patient.[facility] CenterIn the event this information is protected by the Federal Confidentiality of Alcohol and Drug Abuse Patient Records regulations: The Federal rules restrict any use of the information to criminally investigate or prosecute any alcohol or drug abuse patient.[facility] CenterIn the event this information is protected by the Federal Confidentiality of Alcohol and Drug Abuse Patient Records regulations: The Federal rules restrict any use of the information to criminally investigate or prosecute any alcohol or drug abuse patient.[facility] CenterIn the event this information is protected by the Federal Confidentiality of Alcohol and Drug Abuse Patient Records regulations: The Federal rules restrict any use of the information to criminally investigate or prosecute any alcohol or drug abuse patient.[facility] CenterIn the event this information is protected by the Federal Confidentiality of Alcohol and Drug Abuse Patient Records regulations: The Federal rules restrict any use of the information to criminally investigate or prosecute any alcohol or drug abuse patient.[facility] CenterIn the event this information is protected by the Federal Confidentiality of Alcohol and Drug Abuse Patient Records regulations: The Federal rules restrict any use of the information to criminally investigate or prosecute any alcohol or drug abuse patient.[facility] CenterIn the event this information is protected by the Federal Confidentiality of Alcohol and Drug Abuse Patient Records regulations: The Federal rules restrict any use of the information to criminally investigate or prosecute any alcohol or drug abuse patient.[facility] Scheduled Active and Recently Administ ered Medications (unrecognized section and content) Medication Order 03/02/2023 03/03/2023 03/04/2023 Atorvastatin (LIPITOR) tablet 10 mg 10 mg, Oral, DAILY AT BEDTIME, First dose on Fri03/03/23 at 2100, Until Discontinued 2050 (Given - Provider: Robson Gates, DANIEL) Azithromycin (ZITHROMAX) 500 mg in Sodium chloride 0.9% 250 mL (total volume) IVPB (COMPLETED) 500 mg, Intravenous, Administer over 60 Minutes, ONCE, 1 dose, On Fri03/03/23 at 1145 1233 ($$New Bag$$ - Provider: Ina Conklin, RN)1400 (Stopped - Provider: MariaE lena Katz RN - Comment: not running once on floor) Azithromycin (ZITHROMAX) 500 mg in Sodium chloride 0.9% 250 mL (total volume) IVPB 500 mg, Intravenous, Administer over 60 Minutes, EVERY 24 HOURS, First dose on Fri03/04/23 at 1200, Until Discontinued 1227 ($$New Bag$$ - Provider: Genesis Gaines, DANIEL)1327 (Stopped - Provider: Genesis Gaines RN) Barium Sulfate (VARIBAR PUDDING) 40 % pudding PSTE 46 mL 46 mL, Oral, ONCE, 1 dose, On Fri03/04/23 at 1700, Use Varibar Pudding, Radiology Procedure 1625 (Given - Radiol ogy - Provider: Maria Elena Holland) Barium Sulfate (VARIBAR THIN LIQUID) 40 % 1-150 mL 1-150 mL, Oral, ONCE, 1 dose, On Fri03/04/23 at 1700, Use Varibar Thin Liquid, Radiology Procedure 1626 (Given - Radiol ogy - Provider: Maria Elena Holland) Barium Sulfate (VARIBAR) 40 % suspension SUSP 48 mL 48 mL, Oral, ONCE, 1 dose, On Fri03/04/23 at 1700, Use Varibar Thin Honey, Radiology Procedure 1627 (Given - Radiol ogy - Provider: Maria Elena Holland) Barium Sulfate (VARIBAR) 40 % suspension SUSP 48 mL 48 mL, Oral, ONCE, 1 dose, On Fri03/04/23 at 1700, Use Varibar Chloride, Radiology Procedure 1627 (Given - Radiol ogy - Provider: Maria Elena Holland) cefTRIAXone (ROCEPHIN) 1 g in sodium chloride 0.9% (MB PLUS) 50 mL (total volume) IVPB (COMPLETED) 1 g, Intravenous, Administer over 30 Minutes, ONCE, 1 dose, On Fri03/03/23 at 1115 1124 ($$New Bag$$ - Provider: Ina Conklin RN)1154 (Stopped - Provider: Ina Conklin RN) cefTRIAXone (ROCEPHIN) 1 g in sodium chloride 0.9% (MB PLUS) 50 mL (total volume) IVPB 1 g, Intravenous, Administer over 30 Minutes, EVERY 24 HOURS, First dose on Fri03/04/23 at 1200, Until Discontinued 1150 ($$New Bag$$ - Provider: Genesis Gaines RN)1220 (Stopped - Provider: Genesis Gaines RN) Enoxaparin Sodium (LOVENOX) injection 40 mg 40 mg, Subcutaneous, DAILY AT BEDTIME, First dose on Fri03/03/23 at 2100, Until Discontinued, Indications: DVT/PE prophylaxis 2050 (Given - Provider: Robson Gates RN) iohexol (OMNIPAQUE) 350 MG/ML injection 75 mL (COMPLETED) 75 mL, Intravenous, ONCE, 1 dose, On Fri03/03/23 at 1045, Extravasation Risk, Radiology Procedure 1008 (Given - Radiology - Provider: Lashell Archer) Loratadine (CLARITIN) tablet 10 mg 10 mg, Oral, DAILY, First dose on Fri03/03/23 at 1500, Until Discontinued 1545 (Not Given - Provider: Maria Elena Katz RN - Reason: Patient/family refused - Comment: states patient hasnt taken in 2 days- can wait another day and to let patient rest) 0836 (Not Given - Provider: Genesis Gaines RN - Reason: Patient/family refused) Losartan (COZAAR) tablet 100 mg 100 mg, Oral, DAILY, First dose on Fri03/03/23 at 1500, Until Discontinued 1545 (Not Given - Provider: Maria Elena Katz RN - Reason: Patient/family refused - Comment: states patient hasnt taken in 2 days- can wait another day and to let patient rest) 0849 (Not Given - Provider: Genesis Gaines RN - Reason: Other - Comment: pt with hypotension last evening, pt and family do not wish to take, difficulty swallowing pills, does not want crushed at this time.) Magnesium sulfate 2 g/50 ml in sterile water premix IVPB 2 g 50 mL (total volume) 2 g, Intravenous, Administer over 4 Hours, DAILY, First dose on Fri03/04/23 at 0600, Until Discontinued, Give if magnesium is less than 2 on morning labs. Infuse at a rate of 0.5 gm/hour. 0913 ($$New Bag$$ - Provider: Genesis Gaines RN)1313 (Stopped - Provider: Genesis Gaines RN) Montelukast (SINGULAIR) tablet 10 mg 10 mg, Oral, DAILY AT BEDTIME, First dose on Fri03/03/23 at 2100, Until Discontinued 2050 (Given - Provider: Robson Gates, RN) multivitamin (THERA M PLUS) tablet 1 tablet 1 tablet, Oral, DAILY, First dose on Fri03/03/23 at 1500, Until Discontinued 154 (Not Given - Provider: Maria Elena Katz RN - Reason: Patient/family refused - Comment: states patient hasnt taken in 2 days- can wait another day and to let patient rest) 0836 (Not Given - Provider: Genesis Gaines RN - Reason: Patient/family refused) Pantoprazole (PROTONIX) tablet DR 40 mg 40 mg, Oral, DAILY, First dose on Fri03/03/23 at 1145, Until Discontinued, Swallow whole; do not crush or chew., Indications: Inpt Stress Ulcer Prophylaxis 1544 (Not Given - Provider: Maria Elena Katz RN - Reason: Other) 0836 (Given - Provider: Genesis Gaines RN) Potassium chloride (K-DUR) tablet ER 40 mEq(Linked Group 1) 40 mEq, Oral, DAILY, First dose on Fri03/04/23 at 0600, Until Discontinued, Give if potassium is 3.1 to 3.4 on morning labs and patient is able to tolerate oral medications Swallow tablets whole; do not crush, chew, or suck on tablet. Tablet may also be broken in half and each half swallowed separately. 0610 (Not Given - Provider: Robson Gates RN - Reason: Order Parameters not met) potassium chloride 40 mEq in 0.9% sodium chloride 500 ml IVPB(Linked Group 1) 40 mEq, Intravenous, at 125 mL/hr, Administer over 4 Hours, DAILY, First dose on Fri03/04/23 at 0600, Until Discontinued, Give if potassium is less than 3.1 on morning labs OR if potassium is 3.1 to 3.4 on morning labs and patient is UNABLE to tolerate oral medications 0610 (See Alternativ e - Provider: Robson Gates RN) Sodium chloride 0.9% IV solution 1,000 mL (COMPLETED) 1,000 mL, Intravenous, ONCE, 1 dose, On Fri03/03/23 at 0945 0936 ($$New Bag$$ - Provider: Ina Conklin RN)1055 (Stopped - Provider: Ina Conklin RN) Sodium chloride 0.9% IV solution 75 mL (COMPLETED) 75 mL, Intravenous, ONCE, 1 dose, On Fri03/03/23 at 1045, Radiology Procedure 1008 ($$New Bag$$ - Provider: Lashell Archer)1027 (Stopped - Provider: Ina Conklin RN) Continuous Medication Order 03/02/2023 03/03/2023 03/04/2023 Sodium chloride 0.9% IV solution () Intravenous, at 75 mL/hr, CONTINUOUS, Starting on Fri03/03/23 at 1145, Until Fri03/03/23 at 1244 1144 ($$New Bag$$ - Provider : Ina Conklin RN)1600 (Stopped - Provider: Maria Elena Katz RN) PRN Medication Order 03/02/2023 03/03/2023 03/04/2023 Acetaminophen (TYLENOL) tablet 650 mg 650 mg, Oral, EVERY 4 HOURS NEEDED, Starting on Fri03/03/23 at 1131, Until Fri03/04/23 at 1718, Mild Pain, Oral temp > 100.4 F bisacodyl (DULCOLAX) suppository 10 mg 10 mg, Rectal, DAILY NEEDED, Starting on Fri03/03/23 at 1419, Until Fri03/04/23 at 1718, Constipation 1st Line hydrALAZINE (APRESOLINE) injection 20 mg 20 mg, Intravenous, EVERY 6 HOURS NEEDED, Starting on Fri03/03/23 at 1423, Until Fri03/04/23 at 1718, sbp>160 Ipratropium-albuterol (DUONEB) 0.5-2.5 (3) MG/3ML nebulizer solution 3 mL 3 mL, Nebulization, EVERY 4 HOURS NEEDED, Starting on Fri03/03/23 at 1422, Until Fri03/04/23 at 1718, Shortness of Breath, Breathing Treatment Melatonin tablet 6 mg 6 mg, Oral, DAILY AT BEDTIME NEEDED, Starting on Fri03/03/23 at 1419, Until Fri03/04/23 at 1718, Insomnia Ondansetron 4mg/2ml (ZOFRAN) injection 4 mg 4 mg, Intravenous, EVERY 4 HOURS NEEDED, Starting on Fri03/03/23 at 1131, Until Fri03/04/23 at 1718, Nausea / Vomiting traMADol (ULTRAM) tablet 50 mg 50 mg, Oral, 3 TIMES DAILY NEEDED, Starting on Fri03/03/23 at 1416, Until Fri03/04/23 at 1718, Moderate Pain Linked Groups Order Group 1: Potassium chloride (K-DUR) tablet ER 40 mEqJump to med 40 mEq, Oral, DAILY, First dose on Fri03/04/23 at 0600, Until Discontinued
Give if potassium is 3.1 to 3.4 on morning labs and patient is able to tolerate oral medications Swallow tablets whole; do not crush, chew, or suck on tablet. Tablet may also be broken in half and each half swallowed separately.
Or potassium chloride 40 mEq in 0.9% sodium chloride 500 ml IVPBJump to med 40 mEq, Intravenous, at 125 mL/hr, Administer over 4 Hours, DAILY, First dose on Fri03/04/23 at 0600, Until Discontinued
Give if potassium is less than 3.1 on morning labs OR if potassium is 3.1 to 3.4 on morning labs and patient is UNABLE to tolerate oral medications
Scheduled Medication Order 04/06/2023 04/07/2023 04/08/2023 Atorvastatin (LIPITOR) tablet 10 mg 10 mg, Oral, DAILY AT BEDTIME, First dose on Fri04/07/23 at 2100, Until Discontinued 214 (Given - Provider: Susan Morales RN) ceFAZolin (ANCEF) 2 g in dextrose 100 mL premix IVPB (COMPLETED) 2 g, Intravenous, Administer over 30 Minutes, ONCE, 1 dose, On Fri04/07/23 at 0945 0914 (Given - Provider: Keyana Collado APRN-[employer]) Finasteride (PROSCAR) tablet 5 mg 5 mg, Oral, DAILY, First dose on Fri04/07/23 at 1215, Until Discontinued 1151 (Given - Provider: Mara Woodson RN) 0954 (Given - Provider: Mara Woodson RN) Losartan (COZAAR) tablet 100 mg 100 mg, Oral, DAILY, First dose on Fri04/07/23 at 1215, Until Discontinued 115 (Given - Provider: Mara Woodson RN) 0945 (Given - Provider: Mara Woodson RN) Magnesium sulfate 2 g/50 ml in sterile water premix IVPB 2 g 50 mL (total volume) 2 g, Intravenous, Administer over 4 Hours, DAILY, First dose on Fri04/08/23 at 0600, Until Discontinued, Give if magnesium is less than 2 on morning labs. Infuse at a rate of 0.5 gm/hour. 0937 ($$New Bag$$ - Provider: Mara Woodson RN)1345 (Stopped - Provider: Mara Woodson RN) Pantoprazole (PROTONIX) injection 40 mg 40 mg, Intravenous, DAILY, First dose on Fri04/07/23 at 1215, Until Discontinued, Dilute each 40 mg vial with 10 mL of NS. All bolus doses, whether 40 mg or 80 mg, should be administered over at least two minutes., Indications: Inpt Stress Ulcer Prophylaxis 115 (Given - Provider: Mara Woodson RN) 0944 (Given - Provider: Mara Woodson RN) Potassium chloride (K-DUR) tablet ER 40 mEq(Linked Group 1) 40 mEq, Oral, DAILY, First dose on Fri04/08/23 at 0600, Until Discontinued, Give if potassium is 3.1 to 3.4 on morning labs and patient is able to tolerate oral medications Swallow tablets whole; do not crush, chew, or suck on tablet. Tablet may also be broken in half and each half swallowed separately. 0649 (Not Given - Provider: Susan Morales RN - Reason: Order Parameters not met) potassium chloride 40 mEq in 0.9% sodium chloride 500 ml IVPB(Linked Group 1) 40 mEq, Intravenous, at 125 mL/hr, Administer over 4 Hours, DAILY, First dose on Fri04/08/23 at 0600, Until Discontinued, Give if potassium is less than 3.1 on morning labs OR if potassium is 3.1 to 3.4 on morning labs and patient is UNABLE to tolerate oral medications 0649 (See Alternativ e - Provider: Susan Morales RN) Thiamine tablet 100 mg 100 mg, Oral, DAILY, First dose on Fri04/07/23 at 1215, Until Discontinued 1151 (Given - Provider: Mara Woodson RN) 0945 (Given - Provider: Mara Woodson RN) Continuous Medication Order 04/06/2023 04/07/2023 04/08/2023 Sodium chloride 0.9% IV solution Intravenous, at 100 mL/hr, CONTINUOUS, Starting on Fri04/07/23 at 0830, Until Fri04/08/23 at 1911, STOP AFTER 1 LITER 0700 ($$New Bag$$ - Provider: Monica Carlos LPN)1141 (Rate/Dose Verify - Provider: Mara Woodson RN)1608 (Rate/Dose Verify - Provider: Mara Woodson RN)2144 (Rate/Dose Verify - Provider: Susan Morales RN) 0600 (Rate/Dose Verify - Provider: Susan Morales RN)1100 (Rate/Dose Verify - Provider: Mara Woodson RN)1600 (Stopped - Provider: Mara Woodson RN) PRN Medication Order 04/06/2023 04/07/2023 04/08/2023 Acetaminophen (TYLENOL) oral solution 650 mg 650 mg, PEG Tube, EVERY 4 HOURS NEEDED, Starting on Fri04/07/23 at 1117, Until Fri04/08/23 at 1911, Mild Pain, Oral temp > 100.4 F Ipratropium-albuterol (DUONEB) 0.5-2.5 (3) MG/3ML nebulizer solution 3 mL 3 mL, Nebulization, EVERY 4 HOURS NEEDED, Starting on Fri04/07/23 at 1147, Until Fri04/08/23 at 191, Shortness of Breath Labetalol (NORMODYNE) injection 20 mg 20 mg, Intravenous, EVERY 6 HOURS NEEDED, Starting on Fri04/07/23 at 1117, Until Fri04/08/23 at 1911, SBP > 160 mmHg with HR >60 bpm Ondansetron 4mg/2ml (ZOFRAN) injection 4 mg 4 mg, Intravenous, EVERY 4 HOURS NEEDED, Starting on Fri04/07/23 at 1126, Until Fri04/08/23 at 1911, Nausea / Vomiting 2204 (Given - Provider: Susan Morales, RN) traMADol (ULTRAM) tablet 50 mg 50 mg, Oral, EVERY 4 HOURS NEEDED, Starting on Fri04/07/23 at 1126, Until Fri04/08/23 at 1911, Moderate Pain, Severe Pain 1151 (Given - Provider: Mara Woodson, RN)1759 (Given - Provider: Mara Woodson, RN)2142 (Given - Provider: Susan Morales RN) 0945 (Given - Provider: Mara Woodson RN) Linked Groups Order Group 1: Potassium chloride (K-DUR) tablet ER 40 mEqJump to med 40 mEq, Oral, DAILY, First dose on Fri04/08/23 at 0600, Until Discontinued, Give if potassium is 3.1 to 3.4 on morning labs and patient is able to tolerate oral medications Swallow tablets whole; do not crush, chew, or suck on tablet. Tablet may also be broken in half and each half swallowed separately. Or potassium chloride 40 mEq in 0.9% sodium chloride 500 ml IVPBJump to med 40 mEq, Intravenous, at 125 mL/hr, Administer over 4 Hours, DAILY, First dose on Fri04/08/23 at 0600, Until Discontinued, Give if potassium is less than 3.1 on morning labs OR if potassium is 3.1 to 3.4 on morning labs and patient is UNABLE to tolerate oral medications Scheduled Medication Order 04/18/2023 04/19/2023 04/20/2023 Enoxaparin Sodium (LOVENOX) injection 40 mg 40 mg, Subcutaneous, EVERY 24 HOURS, First dose on 04/19/23 at 0715, Until Discontinued, Indications: DVT/PE prophylaxis 0822 (Given - Provider: Stacie Rodriguez, DANIEL) 0614 (Given - Provider: Evangelina Sandoval RN) Ipratropium-albuterol (DUONEB) 0.5-2.5 (3) MG/3ML nebulizer solution 3 mL 3 mL, Nebulization, EVERY 6 HOURS NON-STANDARD, First dose on Fri04/19/23 at 0715, Until Discontinued 07 (Given - Provider: Ivette Ordaz, ANAND)1326 (Given - Provider: Ivette Ordaz RRT)1912 (Given - Provider: Kaila Delgado, ANAND) 0010 (Not Given - Provider: Kaila Deglado RRT - Reason: Patient/family refused - Comment: no distress at this time)0740 (Given - Provider: Ivette Ordaz RRT)1257 (Not Given - Provider: Ivette Ordaz RRT - Reason: Patient/family refused - Comment: pt discharging. refuses treatment at this time) levoFLOXacin (LEVAQUIN) 750 mg in dextrose 5% premix IVPB 750 mg, Intravenous, Administer over 90 Minutes, EVERY 24 HOURS, First dose on 04/19/23 at 0715, Until Discontinued 1054 ($$New Bag$$ - Provider: Stacie Rodriguez RN) 1137 ($$New Bag$$ - Provider: Milvia Wagoner RN) Magnesium sulfate 2 g/50 ml in sterile water premix IVPB 2 g 50 mL (total volume) 2 g, Intravenous, Administer over 4 Hours, DAILY, First dose on 04/20/23 at 0600, Until Discontinued, Give if magnesium is less than 2 on morning labs. Infuse at a rate of 0.5 gm/hour. 0737 (Not Given - Provider: Milvia Wagoner RN - Reason: Order Parameters not met) methylPREDNISolone sodium succinate (SOLU-MEDROL) injection 40 mg 40 mg, Intravenous, EVERY 8 HOURS, First dose on 04/19/23 at 0645, Until Discontinued 0822 (Given - Provider: Stacie Rodriguez RN)1516 (Given - Provider: Stacie Rodriguez RN)2128 (Given - Provider: Evangelina Sandoval RN) 0614 (Given - Provider: Evangelina Sandoval RN)1400 (Canceled Entry - Provider: System Discharge - Comment: Automatically canceled at discontinue of medication order) Pantoprazole (PROTONIX) injection 40 mg 40 mg, Intravenous, DAILY, First dose on 04/20/23 at 0900, Until Discontinued, Dilute each 40 mg vial with 10 mL of NS. All bolus doses, whether 40 mg or 80 mg, should be administered over at least two minutes., Indications: Inpt Stress Ulcer Prophylaxis 0934 (Given - Provid er: Milvia Wagoner RN) Potassium chloride (K-DUR) tablet ER 40 mEq(Linked Group 1) 40 mEq, Oral, DAILY, First dose on 04/20/23 at 0600, Until Discontinued, Give if potassium is 3.1 to 3.4 on morning labs and patient is able to tolerate oral medications Swallow tablets whole; do not crush, chew, or suck on tablet. Tablet may also be broken in half and each half swallowed separately. 0737 (Not Given - Provider: Milvia Wagoner RN - Reason: Order Parameters not met) potassium chloride 40 mEq in 0.9% sodium chloride 500 ml IVPB(Linked Group 1) 40 mEq, Intravenous, at 125 mL/hr, Administer over 4 Hours, DAILY, First dose on 04/20/23 at 0600, Until Discontinued, Give if potassium is less than 3.1 on morning labs OR if potassium is 3.1 to 3.4 on morning labs and patient is UNABLE to tolerate oral medications 0737 (See Alternativ e - Provider: Milvia Wagoner RN) Continuous Medication Order 04/18/2023 04/19/2023 04/20/2023 Jevity 1.2 Wen LIQD 30-70 mL/hr, PEG Tube, CONTINUOUS, Starting on 04/20/23 at 0800, Until 04/20/23 at 1537 0941 (New Feeding/Supplement - Provider: Milvia Wagoner RN)1324 (Stopped - Provider: Milvia Wagoner RN) Lactated ringers IV solution Intravenous, at 100 mL/hr, CONTINUOUS, Starting on 04/19/23 at 0645, Until 04/20/23 at 0644 0827 ($$New Bag$$ - Provider: Stacie Rodriguez RN) 0008 ($$New Bag$$ - Provider: Evangelina Sandoval RN)0614 ($$New Bag$$ - Provider: Evangelina Sandoval RN) PRN Medication Order 04/18/2023 04/19/2023 04/20/2023 Acetaminophen (TYLENOL) tablet 650 mg 650 mg, Oral, EVERY 4 HOURS NEEDED, Starting on 04/19/23 at 0631, Until 04/20/23 at 1537, Mild Pain, Headaches, Oral temp > 100.4 F Albuterol (PROVENTIL) (2.5 MG/3ML) 0.083% inhalation solution 2.5 mg 2.5 mg, Nebulization, EVERY 4 HOURS NEEDED, Starting on 04/19/23 at 0633, Until 04/20/23 at 1537, Shortness of Breath, Wheezing, Respiratory Distress cloNIDine (CATAPRES) tablet 0.1 mg 0.1 mg, Oral, EVERY 4 HOURS NEEDED, Starting on 04/19/23 at 0631, Until 04/20/23 at 1537, SBP > 160 mmHg, Other, DBP > 90 Ondansetron 4mg/2ml (ZOFRAN) injection 4 mg 4 mg, Intravenous, EVERY 6 HOURS NEEDED, Starting on 04/19/23 at 0631, Until 04/20/23 at 1537, Nausea / Vomiting 0015 (Given - Provid er: Evangelina Sandoval RN) Linked Groups Order Group 1: Potassium chloride (K-DUR) tablet ER 40 mEqJump to med 40 mEq, Oral, DAILY, First dose on 04/20/23 at 0600, Until Discontinued, Give if potassium is 3.1 to 3.4 on morning labs and patient is able to tolerate oral medications Swallow tablets whole; do not crush, chew, or suck on tablet. Tablet may also be broken in half and each half swallowed separately. Or potassium chloride 40 mEq in 0.9% sodium chloride 500 ml IVPBJump to med 40 mEq, Intravenous, at 125 mL/hr, Administer over 4 Hours, DAILY, First dose on 04/20/23 at 0600, Until Discontinued, Give if potassium is less than 3.1 on morning labs OR if potassium is 3.1 to 3.4 on morning labs and patient is UNABLE to tolerate oral medications Scheduled Medication Order 05/09/2023 05/10/2023 05/11/2023 ceFEPIme (MAXIPIME) 2 g in sodium chloride 0.9% (MB PLUS) 100 mL (total volume) IVPB (COMPLETED) 2 g, Intravenous, Administer over 0.5 Hours, ONCE, 1 dose, On Fri05/09/23 at 0830, Infuse STAT doses over 30 minutes. Infuse other doses over 4 hours. 0966 ($$New Bag$$ - Provider: Landen-Melissa Lanier, RN)1009 (Stopped - Provider: Abilio Lanier RN) Enoxaparin Sodium (LOVENOX) injection 40 mg 40 mg, Subcutaneous, DAILY, First dose on Fri05/09/23 at 2100, Until Discontinued, Indications: DVT/PE prophylaxis 2045 (Given - Provider: Ulices Pitt RN) 2132 (Given - Provider: Carlton Naylor, RN) Finasteride (PROSCAR) tablet 5 mg 5 mg, Oral, DAILY, First dose on Fri05/09/23 at 1345, Until Discontinued 1311 (Not Given - Provider: Sudhir Frazier RN - Reason: NPO) 0918 (Given - Provider: Yue Barton, DANIEL) 1101 (Given - Provider: Emma Garcia RN) iohexol (OMNIPAQUE) 350 MG/ML injection 75 mL (COMPLETED) 75 mL, Intravenous, ONCE, 1 dose, On Fri05/09/23 at 1145, Extravasation Risk, Radiology Procedure 1116 (Given - Radiology - Provider: Margarita Melendez) Ipratropium-albuterol (DUONEB) 0.5-2.5 (3) MG/3ML nebulizer solution 3 mL 3 mL, Nebulization, EVERY 6 HOURS NON-STANDARD, First dose on Fri05/09/23 at 1345, Until Discontinued 1346 (Given - Provider: Deepika Villavicencio RCP)1929 (Given - Provider: Nallely Albright RRT) 0639 (Not Given - Provider: Nallely Albright RRT - Reason: Other)0830 (Given - Provider: Deepika Villavicencio RCP)1310 (Given - Provider: Ivette Ordaz RRT)1917 (Given - Provider: Kaila Delgado RRT) 0110 (Not Given - Provider: Kaila Delgado RRT - Reason: Patient sleeping - Comment: requested earlier to be allowed to sleep)0743 (Given - Provider: Ivette Ordaz RRT)1308 (Not Given - Provider: Ivette Ordaz RRT - Reason: Patient/family refused)1900 (Canceled Entry - Provider: System Discharge - Comment: Automatically canceled at discontinue of medication order) Lactated ringers IV solution 1,000 mL (COMPLETED) 1,000 mL, Intravenous, ONCE, 1 dose, On Fri05/09/23 at 1130 1229 ($$New Bag$$ - Provider: Sudhir Frazier, RN) Lactated ringers IV solution 1,000 mL (COMPLETED) 1,000 mL, Intravenous, at 999 mL/hr, ONCE, 1 dose, On Fri05/09/23 at 1515 1511 ($$New Bag$$ - Provider: Sudhir Frazier, RN) levoFLOXacin (LEVAQUIN) 750 mg in dextrose 5% premix IVPB 750 mg, Intravenous, Administer over 90 Minutes, EVERY 24 HOURS, First dose on Fri05/09/23 at 0900, Until Discontinued 1009 ($$New Bag$$ - Provider: Abilio Lanier RN) 1031 ($$New Bag$$ - Provider: Yue Barton RN) 1350 ($$New Bag$$ - Provider: Emma Garcia RN) Magnesium sulfate 2 g/50 ml in sterile water premix IVPB 2 g 50 mL (total volume) 2 g, Intravenous, Administer over 4 Hours, DAILY, First dose on Fri05/10/23 at 0600, Until Discontinued, Give if magnesium is less than 2 on morning labs. Infuse at a rate of 0.5 gm/hour. 1505 ($$New Bag$$ - Provider: Yue Barton RN) 0620 (Not Given - Provider: Carlton Naylor RN - Reason: Order Parameters not met) Melatonin tablet 6 mg 6 mg, Oral, DAILY AT BEDTIME, First dose on Fri05/09/23 at 2100, Until Discontinued 2111 (Not Given - Provider: Ulices Pitt RN - Reason: NPO) 2134 (Given - Provider: Carlton Naylor RN) methylPREDNISolone sodium succinate (SOLU-MEDROL) injection 40 mg 40 mg, Intravenous, EVERY 8 HOURS, First dose on Fri05/09/23 at 1400, Until Discontinued 1315 (Given - Provider: Sudhir Frazier, DANIEL)2154 (Given - Provider: Ulices Pitt RN) 0626 (Given - Provider: Ulices Pitt RN)1454 (Given - Provider: Yue Barton RN)2134 (Given - Provider: Carlton Naylor RN) 0509 (Given - Provider: Carlton Naylor RN)1539 (Given - Provider: Emma Garcia RN) Pantoprazole (PROTONIX) injection 40 mg 40 mg, Intravenous, DAILY, First dose on Fri05/09/23 at 1345, Until Discontinued, Dilute each 40 mg vial with 10 mL of NS. All bolus doses, whether 40 mg or 80 mg, should be administered over at least two minutes., Indications: Inpt Stress Ulcer Prophylaxis 1315 (Given - Provider: Sudhir Frazier RN) 0918 (Given - Provider: Yue Barton RN) 1101 (Given - Provider: Emma Garcia, DANIEL) piperacillin-tazobactam (ZOSYN) 3.375 g in dextrose premix IVPB (COMPLETED) 3.375 g, Intravenous, Administer over 0.5 Hours, ONCE, 1 dose, On Fri05/09/23 at 1200, Infuse STAT doses over 30 minutes. Infuse other doses over 4 hours. Contains a penicillin., Indications: Empiric therapy 1315 ($$New Bag$$ - Provider: Sudhir Frazier RN) 0412 (Stopped - Provider: Ulices Pitt RN) piperacillin-tazobactam (ZOSYN) 3.375 g in dextrose premix IVPB 3.375 g, Intravenous, Administer over 4 Hours, EVERY 8 HOURS NON-STANDARD, First dose on Fri05/09/23 at 1800, Until Discontinued, Infuse STAT doses over 30 minutes. Infuse other doses over 4 hours. Contains a penicillin., Indications: Empiric therapy 2045 ($$New Bag$$ - Provider: Ulices Pitt RN) 0100 (Stopped - Provider: Ulices Pitt RN)0521 ($$New Bag$$ - Provider: Ulices Pitt RN)0918 (Not Given - Provider: Yue Barton RN - Reason: Other - Comment: see notes)1715 ($$New Bag$$ - Provider: Yue Barton RN) 0252 ($$New Bag$$ - Provider: Lee Palma RN)1101 ($$New Bag$$ - Provider: Emma Garcia, DANIEL)1541 (Rate/Dose Verify - Provider: Emma Garcia RN)1800 (Canceled Entry - Provider: System Discharge - Comment: Automatically canceled at discontinue of medication order) Potassium chloride (K-DUR) tablet ER 40 mEq(Linked Group 1) 40 mEq, Oral, DAILY, First dose on 05/10/23 at 0600, Until Discontinued, Give if potassium is 3.1 to 3.4 on morning labs and patient is able to tolerate oral medications Swallow tablets whole; do not crush, chew, or suck on tablet. Tablet may also be broken in half and each half swallowed separately. 0623 (Not Given - Provider: Ulices Pitt RN - Reason: Order Parameters not met) 0620 (Not Given - Provider: Carlton Naylor RN - Reason: Order Parameters not met) potassium chloride 40 mEq in 0.9% sodium chloride 500 ml IVPB(Linked Group 1) 40 mEq, Intravenous, at 125 mL/hr, Administer over 4 Hours, DAILY, First dose on 05/10/23 at 0600, Until Discontinued, Give if potassium is less than 3.1 on morning labs OR if potassium is 3.1 to 3.4 on morning labs and patient is UNABLE to tolerate oral medications 0623 (See Alternative - Provider: Ulices Pitt RN) 0620 (See Alternative - Provider: Carlton Naylor RN) Sodium chloride 0.9% IV solution 1,000 mL (COMPLETED) 1,000 mL, Intravenous, ONCE, 1 dose, On Fri05/09/23 at 1045 1008 ($$New Bag$$ - Provider: Abilio Lanier RN) Sodium chloride 0.9% IV solution 75 mL (COMPLETED) 75 mL, Intravenous, ONCE, 1 dose, On Fri05/09/23 at 1145, Radiology Procedure 1116 ($$New Bag$$ - Provider: Margarita Melendez) vancomycin (VANCOCIN) 1,000 mg in dextrose 200 ml premix IVPB (CANCELED) 1,000 mg, Intravenous, EVERY 8 HOURS NON-STANDARD, First dose on Fri05/09/23 at 2100, Until Discontinued, Infuse at a rate of 1 gram/hour. Extravasation Risk 2041 ($$New Bag$$ - Provider: Ulices Pitt RN)2150 (Stopped - Provider: Ulices Pitt RN) 0418 ($$New Bag$$ - Provider: Ulices Pitt RN)1455 ($$New Bag$$ - Provider: Yue Barton RN)2134 ($$New Bag$$ - Provider: Carlton Naylor RN) 0509 ($$New Bag$$ - Provider: Carlton Naylor RN)1300 (Canceled Entry - Provider: Junior Pena [facility],PharmD - Comment: Automatically canceled at discontinue of medication order)1541 (Not Given - Provider: Emma Garcia RN - Reason: Other) Vancomycin HCl in NaCl (VANCOCIN) 1,250 mg in 0.9% NS 250 mL premix IVPB (COMPLETED) 1,250 mg, Intravenous, ONCE, 1 dose, On Fri05/09/23 at 1145, Infuse at a rate of 1 gram/hour. Extravasation Risk 1404 ($$New Bag$$ - Provider: Sudhir Frazier RN) Continuous Medication Order 05/09/2023 05/10/2023 05/11/2023 Jevity 1.5 Wen/Fiber LIQD PEG Tube, CONTINUOUS, Starting on 05/10/23 at 0915, Until 05/11/23 at 1939, 180 ml free water flush every 4 hours. , Dosing: Continuous, Starting Rate (mL/hr): 30, Advance by (mL/hr): 10, Every ____ hours: 8, Goal Rate (mL/hr): 64, Hold tube feed if residual is greater than ____ mL: 500 1140 (New Feeding/Supplement - Provider: Yue Barton RN)1921 (New Feeding/Supplement - Provider: Yue Barton RN)2147 (Rate/Dose Verify - Provider: Carlton Naylor RN) 0034 (Stopped - Provider: Carlton Naylor RN - Comment: Per patient request states he is feeling nauseous; residual checked- 10 ml noted)0522 (Restarted - Provider: Carlton Naylor RN)1100 (Rate/Dose Change - Provider: Emma Garcia RN)1541 (Rate/Dose Verify - Provider: Emma Garcia RN) Sodium chloride 0.9% IV solution Intravenous, at 125 mL/hr, CONTINUOUS, Starting on 05/09/23 at 0830, Until 05/11/23 at 1939 0926 ($$New Bag$$ - Provider: Abilio Lanier RN) 9310 ($$New Bag$$ - Provider: Ulices Pitt RN) 0252 ($$New Bag$$ - Provider: Lee Palma RN)1351 (Rate/Dose Verify - Provider: Emma Garcia RN) PRN Medication Order 05/09/2023 05/10/2023 05/11/2023 Acetaminophen (TYLENOL) tablet 325-650 mg 325-650 mg, Oral, EVERY 4 HOURS NEEDED, Starting on Fri05/09/23 at 1305, Until Fri05/11/23 at 1939, Mild Pain, Maximum dose of acetaminophen is 4000 mg from all sources in 24 hours. diphenhydrAMINE (BENADRYL) injection 25 mg 25 mg, Intravenous, EVERY 6 HOURS NEEDED, Starting on Fri05/09/23 at 1305, Until Fri05/11/23 at 1939, Itching, Sleep, Allergic Reaction (Swelling throat, tongue or lips, rash, difficulty breathing), Infusion Reaction Ipratropium-albuterol (DUONEB) 0.5-2.5 (3) MG/3ML nebulizer solution 3 mL 3 mL, Nebulization, EVERY 4 HOURS NEEDED, Starting on Fri05/09/23 at 1305, Until Fri05/11/23 at 1939, Shortness of Breath Labetalol (NORMODYNE) injection 20 mg 20 mg, Intravenous, EVERY 4 HOURS NEEDED, Starting on Fri05/09/23 at 1305, Until Fri05/11/23 at 1939, systolic blood pressure greater than 160, Administration duration: up to 20 mg over 2 minutes. Ondansetron 4mg/2ml (ZOFRAN) injection 4 mg 4 mg, Intravenous, EVERY 4 HOURS NEEDED, Starting on Fri05/09/23 at 1305, Until Fri05/11/23 at 1939, Nausea / Vomiting Potassium phosphates 30 mmol in Sodium chloride 0.9%, with overfill 560 mL (total volume) IVPB 30 mmol, Intravenous, Administer over 6 Hours, DAILY NEEDED, Starting on Fri05/09/23 at 1305, Until Fri05/11/23 at 1939, Other, If phospate <2.5, give 30mmol, Extravasation Risk SUMAtriptan (IMITREX) tablet 50 mg 50 mg, Oral, 2 TIMES DAILY NEEDED, Starting on Fri05/09/23 at 1307, Until 05/11/23 at 1939, Migraine, Max 200 mg/24 hr traMADol (ULTRAM) tablet 50 mg 50 mg, Oral, 3 TIMES DAILY NEEDED, Starting on Fri05/09/23 at 1306, Until 05/11/23 at 1939, Mild Pain, Moderate Pain Linked Groups Order Group 1: Potassium chloride (K-DUR) tablet ER 40 mEqJump to med 40 mEq, Oral, DAILY, First dose on 05/10/23 at 0600, Until Discontinued, Give if potassium is 3.1 to 3.4 on morning labs and patient is able to tolerate oral medications Swallow tablets whole; do not crush, chew, or suck on tablet. Tablet may also be broken in half and each half swallowed separately. Or potassium chloride 40 mEq in 0.9% sodium chloride 500 ml IVPBJump to med 40 mEq, Intravenous, at 125 mL/hr, Administer over 4 Hours, DAILY, First dose on 05/10/23 at 0600, Until Discontinued, Give if potassium is less than 3.1 on morning labs OR if potassium is 3.1 to 3.4 on morning labs and patient is UNABLE to tolerate oral medications Scheduled Medication Order 05/24/2023 05/25/2023 05/26/2023 ceFEPIme (MAXIPIME) 2 g in sodium chloride 0.9% (MB PLUS) 100 mL (total volume) IVPB (COMPLETED) 2 g, Intravenous, Administer over 0.5 Hours, ONCE, 1 dose, On 05/24/23 at 2230, Infuse STAT doses over 30 minutes. Infuse other doses over 4 hours. 2304 ($$New Bag$$ - Provider: Jolene Wynn) 0018 (Stopped - Provider: Jolene Wynn) ceFEPIme (MAXIPIME) 2 g in sodium chloride 0.9% (MB PLUS) 100 mL (total volume) IVPB 2 g, Intravenous, Administer over 4 Hours, EVERY 8 HOURS NON-STANDARD, First dose on 05/25/23 at 0630, Until Discontinued, Infuse STAT doses over 30 minutes. Infuse other doses over 4 hours. 0632 ($$New Bag$$ - Provider: Cynthia Cole RN)1030 (Stopped - Provider: Maria Elena Katz RN)1503 ($$New Bag$$ - Provider: Maria Elena Katz RN)2207 ($$New Bag$$ - Provider: Cynthia Cole RN) 0527 ($$New Bag$$ - Provider: Cynthia Cole RN)0927 (Stopped - Provider: Kalyani Grimes RN)1430 (Canceled Entry - Provider: System Discharge - Comment: Automatically canceled at discontinue of medication order) Enoxaparin Sodium (LOVENOX) injection 40 mg 40 mg, Subcutaneous, DAILY, First dose on 05/25/23 at 2100, Until Discontinued, Indications: DVT/PE prophylaxis 2003 (Given - Provider: Cynthia Cole RN) iohexol (OMNIPAQUE) 350 MG/ML injection 75 mL (COMPLETED) 75 mL, Intravenous, ONCE, 1 dose, On 05/24/23 at 2145, Extravasation Risk, Radiology Procedure 0 (Given - Radiology - Provider: Bolivar Orosco) Ipratropium-albuterol (DUONEB) 0.5-2.5 (3) MG/3ML nebulizer solution 3 mL (COMPLETED) 3 mL, Nebulization, ONCE, 1 dose, On 05/24/23 at 2015 2003 (Given - Provider: Luciana Denney, PAYROLL ACCOUNTANT) levoFLOXacin (LEVAQUIN) 750 mg in dextrose 5% premix IVPB 750 mg, Intravenous, Administer over 90 Minutes, EVERY 24 HOURS, First dose on 05/24/23 at 2300, Until Discontinued 0017 ($$New Bag$$ - Provider: Jolene Wynn)0700 (Stopped - Provider: Maria Elena Katz RN)2207 ($$New Bag$$ - Provider: Cynthia Cole RN) Magnesium sulfate 2 g/50 ml in sterile water premix IVPB 2 g 50 mL (total volume) 2 g, Intravenous, Administer over 4 Hours, DAILY, First dose on 05/25/23 at 0915, Until Discontinued, Give if magnesium is less than 2 on morning labs. Infuse at a rate of 0.5 gm/hour. 1817 ($$New Bag$$ - Provider: Maria Elena Katz RN)2217 (Stopped - Provider: Kalyani Grimes RN) 0709 (Not Given - Provider: aPloma Hill RN - Reason: Order Parameters not met) methylPREDNISolone sodium succinate (SOLU-MEDROL) injection 40 mg 40 mg, Intravenous, EVERY 6 HOURS, First dose on 05/25/23 at 1200, Until Discontinued 1113 (Given - Provider: Maria Elena Katz RN)1817 (Given - Provider: Maria Elena Katz RN) 0023 (Given - Provider: Cynthia Cole RN)0527 (Given - Provider: Cynthia Cole RN)1131 (Not Given - Provider: Kalyani Grimes RN - Reason: IV access lost - Comment: pt discharged) Ondansetron 4mg/2ml (ZOFRAN) injection 4 mg (COMPLETED) 4 mg, Intravenous, ONCE, 1 dose, On 05/24/23 at 2014 2005 (Given - Provider: Jolene Wynn) Pantoprazole (PROTONIX) injection 40 mg (COMPLETED) 40 mg, Intravenous, ONCE, 1 dose, On 05/24/23 at 2014, Dilute each 40 mg vial with 10 mL of NS. All bolus doses, whether 40 mg or 80 mg, should be administered over at least two minutes., Indications: GERD, Inpt Stress Ulcer Prophylaxis 2005 (Given - Provider: Jolene Wynn) Pantoprazole (PROTONIX) injection 40 mg (CANCELED) 40 mg, Intravenous, DAILY, First dose on 05/25/23 at 1000, Until Discontinued, Dilute each 40 mg vial with 10 mL of NS. All bolus doses, whether 40 mg or 80 mg, should be administered over at least two minutes., Indications: Inpt Stress Ulcer Prophylaxis 111 (Given - Provider: Maria Elena Katz RN) Pantoprazole (PROTONIX) injection 40 mg 40 mg, Intravenous, EVERY 12 HOURS, First dose (after last modification) on 05/25/23 at 2100, Until Discontinued, Dilute each 40 mg vial with 10 mL of NS. All bolus doses, whether 40 mg or 80 mg, should be administered over at least two minutes., Indications: Inpt Stress Ulcer Prophylaxis 2003 (Given - Provider: Cynthia Cole RN) 103 (Not Given - Provider: Kalyani Grimes, RN - Reason: IV access lost) Potassium chloride (K-DUR) tablet ER 40 mEq(Linked Group 1) 40 mEq, Oral, DAILY, First dose on Fri05/26/23 at 0600, Until Discontinued, Give if potassium is 3.1 to 3.4 on morning labs and patient is able to tolerate oral medications Swallow tablets whole; do not crush, chew, or suck on tablet. Tablet may also be broken in half and each half swallowed separately. 07 (Not Given - Provider: Paloma Hill RN - Reason: Order Parameters not met) potassium chloride 40 mEq in 0.9% sodium chloride 500 ml IVPB(Linked Group 1) 40 mEq, Intravenous, at 125 mL/hr, Administer over 4 Hours, DAILY, First dose on Fri05/26/23 at 0600, Until Discontinued, Give if potassium is less than 3.1 on morning labs OR if potassium is 3.1 to 3.4 on morning labs and patient is UNABLE to tolerate oral medications 708 (See Alternativ e - Provider: Paloma Hill RN) Sodium chloride 0.9% IV solution 75 mL (COMPLETED) 75 mL, Intravenous, ONCE, 1 dose, On 05/24/23 at 2145, Radiology Procedure 0 ($$New Bag$$ - Provider: Bolivar Orosco)215 (Stopped - Provider: Jolene Wynn) vancomycin (VANCOCIN) 1,000 mg in dextrose 200 ml premix IVPB 1,000 mg, Intravenous, EVERY 8 HOURS NON-STANDARD, First dose on Fri05/25/23 at 1000, Until Discontinued, Infuse at a rate of 1 gram/hour. Extravasation Risk 1100 ($$New Bag$$ - Provider: Maria Elena Katz RN)1200 (Stopped - Provider: Maria Elena Katz RN)1817 ($$New Bag$$ - Provider: Maria Elena Katz RN) 0219 ($$New Bag$$ - Provider: Cynthia Cole RN)1039 (Not Given - Provider: Kalyani Grimes RN - Reason: IV access lost - Comment: pt discharged) Continuous Medication Order 05/24/2023 05/25/2023 05/26/2023 Jevity 1.5 Wen/Fiber LIQD PEG Tube, CONTINUOUS, Starting on Fri05/25/23 at 1500, Until Fri05/26/23 at 1448, Dosing: Continuous, Starting Rate (mL/hr): 30, Advance by (mL/hr): 30, Every ____ hours: 8, Goal Rate (mL/hr): 62, Hold tube feed if residual is greater than ____ mL: 500 1547 (New Feeding/Supplement - Provider: Jolene Cisneros RN) 0026 (Rate/Dose Change - Provider: Cynthia Cole RN)1040 (Rate/Dose Change - Provider: Kalyani Grimes, DANIEL) Sodium chloride 0.9% IV solution Intravenous, at 125 mL/hr, CONTINUOUS, Starting on 05/24/23 at 2000, Until 05/26/23 at 1448 2004 ($$New Bag$$ - Provider: Jolene Wynn) 0928 (Rate/Dose Verify - Provider: Maria Elena Katz, DANIEL)1203 ($$New Bag$$ - Provider: Jolene Cisneros RN)1653 (Rate/Dose Verify - Provider: Maria Elena Katz, DANIEL)2003 ($$New Bag$$ - Provider: Cynthia Cole RN) 0531 ($$New Bag$$ - Provider: Cynthia Cole RN)1015 (Stopped - Provider: Kalyani Grimes, DANIEL) Sodium chloride 0.9% IV solution (CANCELED) Intravenous, at 125 mL/hr, CONTINUOUS, Starting on 05/25/23 at 0115, Until 05/25/23 at 0909 0035 (Handoff - Provider: Cynthia Cole RN)0927 (Stopped - Provider: Maria Elena Katz RN) PRN Medication Order 05/24/2023 05/25/2023 05/26/2023 Acetaminophen (TYLENOL) tablet 325-650 mg 325-650 mg, Oral, EVERY 4 HOURS NEEDED, Starting on 05/25/23 at 0908, Until 05/26/23 at 1448, Mild Pain, Maximum dose of acetaminophen is 4000 mg from all sources in 24 hours. Ipratropium-albuterol (DUONEB) 0.5-2.5 (3) MG/3ML nebulizer solution 3 mL 3 mL, Nebulization, EVERY 4 HOURS NEEDED, Starting on 05/25/23 at 0113, Until 05/26/23 at 1448, Shortness of Breath, Wheezing Labetalol (NORMODYNE) injection 20 mg 20 mg, Intravenous, EVERY 4 HOURS NEEDED, Starting on 05/25/23 at 0908, Until 05/26/23 at 1448, systolic blood pressure greater than 160, Administration duration: up to 20 mg over 2 minutes. Ondansetron 4mg/2ml (ZOFRAN) injection 4 mg 4 mg, Intravenous, EVERY 4 HOURS NEEDED, Starting on Fri05/25/23 at 0113, Until Fri05/26/23 at 1448, Nausea / Vomiting Potassium phosphates 30 mmol in Sodium chloride 0.9%, with overfill 560 mL (total volume) IVPB 30 mmol, Intravenous, Administer over 6 Hours, DAILY NEEDED, Starting on Fri05/25/23 at 0908, Until Fri05/26/23 at 1448, Other, If phospate <2.5, give 30mmol, Extravasation Risk Linked Groups Order Group 1: Potassium chloride (K-DUR) tablet ER 40 mEqJump to med 40 mEq, Oral, DAILY, First dose on Fri05/26/23 at 0600, Until Discontinued, Give if potassium is 3.1 to 3.4 on morning labs and patient is able to tolerate oral medications Swallow tablets whole; do not crush, chew, or suck on tablet. Tablet may also be broken in half and each half swallowed separately. Or potassium chloride 40 mEq in 0.9% sodium chloride 500 ml IVPBJump to med 40 mEq, Intravenous, at 125 mL/hr, Administer over 4 Hours, DAILY, First dose on Fri05/26/23 at 0600, Until Discontinued, Give if potassium is less than 3.1 on morning labs OR if potassium is 3.1 to 3.4 on morning labs and patient is UNABLE to tolerate oral medications Scheduled Medication Order 06/15/2023 06/16/2023 06/17/2023 Atorvastatin (LIPITOR) tablet 20 mg 20 mg, PEG Tube, DAILY AT BEDTIME, First dose on Fri06/15/23 at 2100, Until Discontinued 2032 (Given - Provider: Yara Jaeger) 2116 (Given - Provider: Bryan Darling RN) ceFEPIme (MAXIPIME) 2 g in sodium chloride 0.9% (MB PLUS) 100 mL (total volume) IVPB 2 g, Intravenous, Administer over 4 Hours, EVERY 8 HOURS NON-STANDARD, First dose on Fri06/15/23 at 0200, Until Discontinued, Infuse STAT doses over 30 minutes. Infuse other doses over 4 hours. 231 ($$New Bag$$ - Provider: Carlton Naylor RN)1130 ($$New Bag$$ - Provider: Sudhir Frazier RN)1709 ($$New Bag$$ - Provider: Sudhir Frazier RN) 0145 ($$New Bag$$ - Provider: Kirk Lopez LPN)1000 ($$New Bag$$ - Provider: Baron Wong RN)1724 ($$New Bag$$ - Provider: Mara Robert RN) 0304 ($$New Bag$$ - Provider: Bryan Darling RN)0704 (Stopped - Provider: Tari Wynne, RN)1011 ($$New Bag$$ - Provider: Tari Wynne, RN) Enoxaparin Sodium (LOVENOX) injection 40 mg 40 mg, Subcutaneous, DAILY, First dose on 06/15/23 at 1030, Until Discontinued, Indications: DVT/PE prophylaxis 1130 (Given - Provider: Sudhir Frazier RN) 0959 (Given - Provider: Baron Wong, DANIEL) 0906 (Given - Provider: Tari Wynne, DANIEL) Ipratropium-albuterol (DUONEB) 0.5-2.5 (3) MG/3ML nebulizer solution 3 mL (CANCELED) 3 mL, Nebulization, EVERY 4 HOURS, First dose on 06/14/23 at 2300, Until Discontinued 0256 (Not Given - Provider: Kaila Delgado RRT - Reason: Patient/family refused - Comment: requested earlier to be allowed to sleep)0741 (Given - Provider: Marilee Watkins, ANAND) Ipratropium-albuterol (DUONEB) 0.5-2.5 (3) MG/3ML nebulizer solution 3 mL (CANCELED) 3 mL, Nebulization, EVERY 6 HOURS NON-STANDARD, First dose on 06/15/23 at 1300, Until Discontinued 1205 (Given - Provider: Marilee Watkins, ANAND)1927 (Given - Provider: Kaila Delgado, ANAND) 0054 (Not Given - Provider: Kaila Delgado RRT - Reason: Patient/family refused - Comment: wanted to sleep)0717 (Given - Provider: Natalia Wooten, PAYROLL ACCOUNTANT) levoFLOXacin (LEVAQUIN) 750 mg in dextrose 5% premix IVPB 750 mg, Intravenous, Administer over 90 Minutes, EVERY 24 HOURS, First dose on 06/14/23 at 1900, Until Discontinued 2032 ($$New Bag$$ - Provider: Yara Jaeger) 2120 ($$New Bag$$ - Provider: Bryan Darling, DANIEL) 0700 (Stopped - Provider: Tari Wynne, DANIEL) Losartan (COZAAR) tablet 100 mg 100 mg, PEG Tube, DAILY, First dose on 06/15/23 at 1045, Until Discontinued 112 (Given - Provider: Sudhir Frazier RN) 1000 (Given - Provider: Baron Wong, DANIEL) 0905 (Given - Provider: Tari Wynne, DANIEL) Magnesium sulfate 2 g/50 ml in sterile water premix IVPB 2 g 50 mL (total volume) 2 g, Intravenous, Administer over 4 Hours, DAILY, First dose on 06/16/23 at 0600, Until Discontinued, Give if magnesium is less than 2 on morning labs. Infuse at a rate of 0.5 gm/hour. 0545 (Not Given - Provider: Yara Jaeger - Reason: Order Parameters not met) 0603 (Not Given - Provider: Bryan Darling RN - Reason: Order Parameters not met) methylPREDNISolone sodium succinate (SOLU-MEDROL) injection 40 mg 40 mg, Intravenous, EVERY 12 HOURS, First dose on 06/15/23 at 1015, Until Discontinued 1130 (Given - Provider: Sudhir Frazier RN)2032 (Given - Provider: Yara Jaeger) 1000 (Given - Provider: Baron Wong RN)211 (Given - Provider: Bryan Darling RN) 0905 (Given - Provider: Tari Wynne, DANIEL) pantoprazole Sodium (PROTONIX) oral granules packet 40 mg 40 mg, PEG Tube, DAILY BEFORE BREAKFAST, First dose on Fri06/16/23 at 0600, Until Discontinued, Must mix with APPLE JUICE or APPLESAUCE ONLY to maintain integrity of granules. A 16 [place] or larger bore tube is necessary for administration., Indications: GERD 0624 (Given - Provider: Yara Jaeger) 0915 (Given - Provider: Tari Wynne RN) Polyethylene glycol (MIRALAX) packet 17 g 17 g, Oral, DAILY, First dose on Fri06/15/23 at 1030, Until Discontinued, Hold if diarrhea 1130 (Given - Provider: Sudhir Frazier RN) 0954 (Not Given - Provider: Mara Robert RN - Reason: Patient/family refused - Comment: on tube feed) 0905 (Not Given - Provider: Tari Wynne RN - Reason: Patient/family refused) Potassium chloride (K-DUR) tablet ER 40 mEq(Linked Group 1) 40 mEq, Oral, DAILY, First dose on Fri06/16/23 at 0600, Until Discontinued, Give if potassium is 3.1 to 3.4 on morning labs and patient is able to tolerate oral medications Swallow tablets whole; do not crush, chew, or suck on tablet. Tablet may also be broken in half and each half swallowed separately. 0545 (Not Given - Provider: Yara Jaeger - Reason: Order Parameters not met) 0603 (Not Given - Provider: Bryan Darling RN - Reason: Order Parameters not met) potassium chloride 40 mEq in 0.9% sodium chloride 500 ml IVPB(Linked Group 1) 40 mEq, Intravenous, at 125 mL/hr, Administer over 4 Hours, DAILY, First dose on Fri06/16/23 at 0600, Until Discontinued, Give if potassium is less than 3.1 on morning labs OR if potassium is 3.1 to 3.4 on morning labs and patient is UNABLE to tolerate oral medications 0545 (See Alternative - Provider: Yara Jaeger) 0603 (See Alternative - Provider: Bryan Darling RN) probiotic blend (RISAQUAD) capsule 1 capsule 1 capsule, Oral, 2 TIMES DAILY, First dose on Fri06/15/23 at 1030, Until Discontinued 1129 (Given - Provider: Sudhir Frazier RN)1709 (Given - Provider: Sudhir Frazier RN) 1000 (Given - Provider: Baron Wong RN)1724 (Given - Provider: Mara Robert, DANIEL) 0905 (Given - Provider: Tari Wynne RN) vancomycin (VANCOCIN) 1,000 mg in dextrose 200 ml premix IVPB (CANCELED) 1,000 mg, Intravenous, EVERY 8 HOURS NON-STANDARD, First dose on Fri06/15/23 at 0300, Until Discontinued, Infuse at a rate of 1 gram/hour. Extravasation Risk 0232 ($$New Bag$$ - Provider: Carlton Naylor RN)1007 ($$New Bag$$ - Provider: Sudhir Frazier RN)2033 ($$New Bag$$ - Provider: Yara Jaeger) 0420 ($$New Bag$$ - Provider: Kirk Lopez LPN)1348 ($$New Bag$$ - Provider: Mara Robert RN) Continuous Medication Order 06/15/2023 06/16/2023 06/17/2023 Jevity 1.5 Wen/Fiber LIQD PEG Tube, CONTINUOUS, Starting on 06/15/23 at 1015, Until Fri06/17/23 at 1601, 150 ml free water flush every 6 hours. , Dosing: Continuous, Starting Rate (mL/hr): 10, Advance by (mL/hr): 10, Every ____ hours: 6, Goal Rate (mL/hr): 40, Hold tube feed if residual is greater than ____ mL: 350 1110 (New Feeding/Supplement - Provider: Sudhir Frazier RN) 2205 (Stopped - Provider: Bryan Darling RN)2207 (New Feeding/Supplement - Provider: Bryan Darling RN)2210 (Rate/Dose Verify - Provider: Bryan Darling RN) 0759 (Rate/Dose Verify - Provider: Tari Wynne RN)1210 (Rate/Dose Verify - Provider: Tari Wynne RN) Sodium chloride 0.9% IV solution Intravenous, at 100 mL/hr, CONTINUOUS, Starting on 06/14/23 at 2100, Until Fri06/17/23 at 1601 0817 ($$New Bag$$ - Provider: Sudhir Frazier RN) 0648 ($$New Bag$$ - Provider: Kirk Lopez LPN) PRN Medication Order 06/15/2023 06/16/2023 06/17/2023 Acetaminophen (TYLENOL) oral solution 650 mg 650 mg, Per G Tube, EVERY 6 HOURS NEEDED, Starting on Fri06/15/23 at 0711, Until Fri06/17/23 at 1601, Oral temp > 100.4 F diphenhydrAMINE (BENADRYL) injection 25 mg 25 mg, Intravenous, EVERY 6 HOURS NEEDED, Starting on Fri06/15/23 at 1005, Until Fri06/17/23 at 1601, Itching, Sleep, Allergic Reaction (Swelling throat, tongue or lips, rash, difficulty breathing), Infusion Reaction hydroCODone-acetaminophen (NORCO) 5-325 MG per tablet 1 tablet 1 tablet, Oral, EVERY 4 HOURS NEEDED, Starting on Fri06/15/23 at 1005, Until Fri06/17/23 at 1601, Severe Pain, Maximum dose of acetaminophen is 4000 mg from all sources in 24 hours. Ipratropium-albuterol (DUONEB) 0.5-2.5 (3) MG/3ML nebulizer solution 3 mL 3 mL, Nebulization, EVERY 4 HOURS NEEDED, Starting on Fri06/15/23 at 1005, Until Fri06/17/23 at 1601, Shortness of Breath Labetalol (NORMODYNE) injection 20 mg 20 mg, Intravenous, EVERY 4 HOURS NEEDED, Starting on Fri06/15/23 at 1005, Until Fri06/17/23 at 1601, systolic blood pressure greater than 160, Administration duration: up to 20 mg over 2 minutes. lactulose (CHRONULAC) oral solution 20 g 20 g, Oral, EVERY 4 HOURS NEEDED, Starting on Fri06/15/23 at 1005, Until Fri06/17/23 at 1601, Constipation 1st Line Ondansetron 4mg/2ml (ZOFRAN) injection 4 mg 4 mg, Intravenous, EVERY 4 HOURS NEEDED, Starting on 06/14/23 at 2047, Until Fri06/17/23 at 1601, Nausea / Vomiting pilocarpine (PILOCAR) 2 % Oral, 3 TIMES DAILY NEEDED, Starting on 06/15/23 at 1119, Until Fri06/17/23 at 1601, Other, for secretions, Dose: 2 drops by mouth 3 times daily as needed for secretions Potassium phosphates 30 mmol in Sodium chloride 0.9%, with overfill 560 mL (total volume) IVPB 30 mmol, Intravenous, Administer over 6 Hours, DAILY NEEDED, Starting on Fri06/15/23 at 1005, Until Fri06/17/23 at 1601, Other, If phospate <2.5, give 30mmol, Extravasation Risk saliva substitute (MOUTH KOTE) oral spray 3-5 spray 3-5 spray, Oral, EVERY 1 HOUR NEEDED, Starting on Fri06/15/23 at 1001, Until Fri06/17/23 at 1601, Other, dry mouth traMADol (ULTRAM) tablet 50 mg 50 mg, Oral, EVERY 6 HOURS NEEDED, Starting on Fri06/15/23 at 1000, Until Fri06/17/23 at 1601, Moderate Pain Linked Groups Order Group 1: Potassium chloride (K-DUR) tablet ER 40 mEqJump to med 40 mEq, Oral, DAILY, First dose on Fri06/16/23 at 0600, Until Discontinued, Give if potassium is 3.1 to 3.4 on morning labs and patient is able to tolerate oral medications Swallow tablets whole; do not crush, chew, or suck on tablet. Tablet may also be broken in half and each half swallowed separately. Or potassium chloride 40 mEq in 0.9% sodium chloride 500 ml IVPBJump to med 40 mEq, Intravenous, at 125 mL/hr, Administer over 4 Hours, DAILY, First dose on Fri06/16/23 at 0600, Until Discontinued, Give if potassium is less than 3.1 on morning labs OR if potassium is 3.1 to 3.4 on morning labs and patient is UNABLE to tolerate oral medications Scheduled Medication Order 12/23/2023 12/24/2023 12/25/2023 apixaban (ELIQUIS) tablet 10 mg(Linked Group 1) 10 mg, Oral, 2 times daily, First dose on Fri12/24/23 at 1230, For 7 days, Indication: DVT/PE, How long has patient been on apixaban? 0-7 Days 1304 (Given - Provider: Bib Blair RN)2046 (Given - Provider: Hugo Szymanski RN) 0827 (Given - Provider: Bib Blair RN) apixaban (ELIQUIS) tablet 5 mg(Linked Group 1) 5 mg, Oral, 2 times daily, First dose on Fri12/31/23 at 0800, Indication: DVT/PE, How long has patient been on apixaban? 0-7 Days cefTRIAXone (ROCEPHIN) IVPB 2 g (premix)(Linked Group 2) 2,000 mg, Intravenous, at 100 mL/hr, Every 24 hours, First dose on Fri12/22/23 at 2100, Indication: CAP 215 (New Bag - Provider: Stephanie Sheppard RN)2158 (Paused - Provider: Bib Blair RN)2158 (Restarted - Provider: Bib Blair RN)2158 (Paused - Provider: Bib Blair RN)2158 (Restarted - Provider: Bib Blair RN)2199 (Paused - Provider: Bib Blair RN)2201 (Restarted - Provider: Bib Blair RN)2231 (Stopped - Provider: Bib Blair RN) 2049 (New Bag - Provider: Hugo Szymanski RN)2119 (Stopped - Provider: Hugo Szymanski RN) famotidine (PEPCID) tablet 20 mg 20 mg, Oral, 2 times daily, First dose on Fri12/22/23 at 2100 0939 (Given - Provider: Bib Blair RN)2200 (Given - Provider: Stephanie Sheppard RN) 0951 (Given - Provider: Hugo Seay, DANIEL)2046 (Given - Provider: Hugo Szymanski RN) 0827 (Given - Provider: Bib Blair RN) furosemide (LASIX) injection 10 mg (COMPLETED) 10 mg, Intravenous, Once, On Betty 12/25/23 at 1030, For 1 dose, Administer IV push at 20 mg per minute (doses higher than 100 mg require IVPB) 1037 (Given - Provider: Bib Blair RN) furosemide (LASIX) injection 20 mg (COMPLETED) 20 mg, Intravenous, Once, On Fri12/24/23 at 1230, For 1 dose, Administer IV push at 20 mg per minute (doses higher than 100 mg require IVPB) 1153 (Given - Provider: Bib Blair RN) sertraline (ZOLOFT) tablet 50 mg 50 mg, Oral, Daily, First dose on Fri12/23/23 at 0900 0939 (Given - Provider: Bib Blair RN) 0951 (Given - Provider: Hugo Seay RN) 0827 (Given - Provider: Bib Blair RN) tamsulosin (FLOMAX) 24 hr capsule 0.4 mg 0.4 mg, Oral, Daily, First dose on Fri12/23/23 at 0900, DO NOT CRUSH OR CHEW. Give 30 minutes after the same meal daily. Monitor for orthostasis due to potential risk of syncope. 0900 (Not Given - Provider: Bib Blair RN - Reason: Contraindicated) 0900 (Hold - Provider: Hugo Seay RN - Reason: Other - Comment: Tube med, unable to crush or chew) 0900 (Not Given - Provider: Bib Blair RN - Reason: Contraindicated) Continuous Medication Order 12/23/2023 12/24/2023 12/25/2023 heparin (porcine) 25,000 unit/250 mL(100 unit/mL) in D5W infusion (CANCELED) 0-70 Units/kg/hr 73.5 kg (0-51.45 mL/hr, rounded to 0-51.5 mL/hr), Intravenous, Continuous, Starting on Fri12/22/23 at 2045, Choose one of the following protocols: PE / DVT, Bolus options: Protocol WITHOUT initial bolus only, For Downtime Calculator, use: Heparin Infusion Standard 0302 (Rate/Dose Change - Provider: Hugo Martinez RN)0719 (Handoff - Provider: Hugo Martinez RN)0953 (Rate/Dose Change - Provider: Bib Blair RN)1314 (New Bag - Provider: Bib Blair RN) 0548 (Rate/Dose Change - Provider: Stephanie Sheppard, DANIEL)0714 (Handoff - Provider: Stephanie Sheppard, RN)0808 (KVO - Provider: Bib Blair RN)0813 (Stopped - Provider: Bib Blair RN)0814 (New Bag - Provider: Bib Blair RN)1137 (Stopped - Provider: Bib Blair RN) PRN Medication Order 12/23/2023 12/24/2023 12/25/2023 acetaminophen (TYLENOL) tablet 650 mg 650 mg, Oral, Every 4 hours PRN, mild pain, fever 100.4 F or greater, headaches, Starting on Fri12/22/23 at 1935 albuterol inhaler 2 puff 2 puff, Inhalation, Every 6 hours PRN (RT), shortness of breath, wheezing, Starting on Fri12/22/23 at 1955, SPACER REQUIRED FOR ADMINISTRATION ipratropium-albuteroL (DUO-NEB) 0.5-2.5 mg/3 ml nebulizer solution 3 mL 3 mL, Inhalation, Every 6 hours PRN (RT), shortness of breath, Starting on Fri12/22/23 at 1955 naloxone (NARCAN) injection 0.1 mg(Linked Group 3) 0.1 mg, Intravenous, As needed, opioid reversal, For respiratory rate less than or equal to 8 per minute., Starting on Fri12/24/23 at 1110, Mix nalOXone (NARCAN) 0.4 mg (1mL) with 9 mL of Normal Saline to total 10 mL. Administer 0.1 mg (2.5mL) IV Push every 2 minutes until respiratory rate is 10 or greater. naloxone (NARCAN) injection 0.4 mg(Linked Group 3) 0.4 mg, Intravenous, As needed, opioid reversal, patient is pulseless, breathless, and unresponsive, Starting on Fri12/24/23 at 1110, Call a code first, then administer naloxone dose undiluted IV Push over 30 seconds. ondansetron (ZOFRAN) injection 4 mg(Linked Group 4) 4 mg, Intravenous, Every 6 hours PRN, nausea, vomiting, Starting on Fri12/22/23 at 1935, Use oral route first, if tolerated. ondansetron (ZOFRAN-ODT) disintegrating tablet 4 mg(Linked Group 4) 4 mg, Oral, Every 6 hours PRN, nausea, vomiting, Starting on Fri12/22/23 at 1935, Use oral route first, if tolerated. Formulation requires tablet remain in sealed package until immediately prior to dose being administered. oxyCODONE (ROXICODONE) immediate release tablet 5 mg 5 mg, Oral, Every 6 hours PRN, moderate to severe pain, Starting on Fri12/24/23 at 1110 senna (SENOKOT) tablet 8.6 mg 8.6 mg (1 tablet), Oral, 2 times daily PRN, constipation, Starting on Fri12/22/23 at 1935 Linked Groups Order Group 1: apixaban (ELIQUIS) tablet 10 mgJump to med 10 mg, Oral, 2 times daily, First dose on Fri12/24/23 at 1230, For 7 days, Indication: DVT/PE, How long has patient been on apixaban? 0-7 Days Followed by apixaban (ELIQUIS) tablet 5 mgJump to med 5 mg, Oral, 2 times daily, First dose on Fri12/31/23 at 0800, Indication: DVT/PE, How long has patient been on apixaban? 0-7 Days Group 2: cefTRIAXone (ROCEPHIN) IVPB 2 g (premix)Jump to med 2,000 mg, Intravenous, at 100 mL/hr, Every 24 hours, First dose on Fri12/22/23 at 2100, Indication: CAP And azithromycin (ZITHROMAX) 500 mg in sodium chloride (NS) 0.9% 250 mL (vialmate) (CANCELED) 500 mg, Intravenous, at 250 mL/hr, Every 24 hours, First dose on Fri12/22/23 at 2200, Indication: CAP Group 3: naloxone (NARCAN) injection 0.1 mgJump to med 0.1 mg, Intravenous, As needed, opioid reversal, For respiratory rate less than or equal to 8 per minute., Starting on Fri12/24/23 at 1110, Mix nalOXone (NARCAN) 0.4 mg (1mL) with 9 mL of Normal Saline to total 10 mL. Administer 0.1 mg (2.5mL) IV Push every 2 minutes until respiratory rate is 10 or greater. And Notify physician (CANCELED) STAT, Until discontinued, Starting on Fri12/24/23 at 1111, Until Specified, Respiratory rate less than: 8, For respiratory rate less than or equal to 8, notify physician and/or appropriate staff for additional orders. And naloxone (NARCAN) injection 0.4 mgJump to med 0.4 mg, Intravenous, As needed, opioid reversal, patient is pulseless, breathless, and unresponsive, Starting on Fri12/24/23 at 1110, Call a code first, then administer naloxone dose undiluted IV Push over 30 seconds. Group 4: ondansetron (ZOFRAN-ODT) disintegrating tablet 4 mgJump to med 4 mg, Oral, Every 6 hours PRN, nausea, vomiting, Starting on 12/22/23 at 1935, Use oral route first, if tolerated. Formulation requires tablet remain in sealed package until immediately prior to dose being administered. Or ondansetron (ZOFRAN) injection 4 mgJump to med 4 mg, Intravenous, Every 6 hours PRN, nausea, vomiting, Starting on 12/22/23 at 1935, Use oral route first, if tolerated. Scheduled Medication Order 11/13/2023 11/14/2023 11/15/2023 iohexol (OMNIPaque) 350 mg iodine/mL solution 67 mL (COMPLETED) 67 mL, intravenous, Once in imaging, Starting on 11/15/23 at 1723, For 1 dose 1723 (Given - Provid er: Jesu Gomez, RT - Comment: 1.7 mL/s) morphine injection 4 mg (COMPLETED) 4 mg, intravenous, Once, On 11/15/23 at 1545, For 1 dose 1626 (Given - Provid er: Brynn Johnson RN) ondansetron (Zofran) injection 4 mg (COMPLETED) 4 mg, intravenous, Once, On 11/15/23 at 1545, For 1 dose, When administering via IV Push, administer over 3-5 minutes. 1622 (Given - Provid er: Brynn Johnson RN) sodium chloride 0.9 % bolus 1,000 mL (COMPLETED) 1,000 mL, intravenous, at 999 mL/hr, Administer over 1 Hours, Once, On 11/15/23 at 1545, For 1 dose 1610 (New Bag - Prov ider: Brynn Johnson RN)1657 (Stopped - Provider: Brynn Johnson RN) Continuous Medication Order 11/13/2023 11/14/2023 11/15/2023 sodium chloride 0.9% infusion 150 mL/hr, intravenous, Continuous, Starting on 11/15/23 at 1545 1657 (New Bag - Prov ider: Brynn Johnson RN)1851 (Stopped - Provider: Brynn Johnson RN) Scheduled Medication Order 05/20/2024 05/21/2024 05/22/2024 doxycycline (Vibra-Tabs) tablet 100 mg (COMPLETED) 100 mg, oral, Once, On 05/22/24 at 1630, For 1 dose, Administer with meals to decrease GI upset; take with at least 8 ounces (large glass) of water, do not lie down for 30 minutes after., Suspected Indication (Select all that apply): Cellulitis, Skin and Soft Tissue, Type of Therapy: Definitive, No Cultures, Coverage (Select all that apply): MRSA: Staph, Methicillin-Resistant, MSSA: Staph, Methicillin-Susceptible, Indications: Cellulitis, Skin and Soft Tissue 1648 (Given - Provid er: Monica Whitehead RN - Comment: via PEG tube) iohexol (OMNIPaque) 350 mg iodine/mL solution 68 mL (COMPLETED) 68 mL, intravenous, Once in imaging, Starting on 05/22/24 at 1519, For 1 dose 1520 (Given - Provid er: Neena Yanes) Scheduled Medication Order 06/07/2024 06/08/2024 06/09/2024 ampicillin-sulbactam (UNASYN) 3000 mg in sodium chloride (NS) 0.9% 100 mL (vialmate) 3,000 mg, Intravenous, at 100 mL/hr, Every 6 hours, First dose on Fri06/08/24 at 0000, Indication: Aspiration Pneumonia 0041 (New Bag - Provider: Ameena Grubbs RN)0614 (New Bag - Provider: Ameena Grubbs RN)1154 (New Bag - Provider: Rusty Orta RN)1722 (New Bag - Provider: Jose Youssef RN)2351 (New Bag - Provider: Klaudia Guidry RN) 0606 (New Bag - Provider: Klaudia Guidry RN)1202 (New Bag - Provider: Nabil Greenwood RN) apixaban (ELIQUIS) tablet 5 mg 5 mg, Tube, 2 times daily, First dose on Fri06/07/24 at 2300, Indication: DVT/PE, How long has patient been on apixaban? Greater than 6 Months 2300 (Not Given - Provider: Ameena Grubbs RN - Reason: NPO) 0847 (Given - Provider: Rusty Orta RN)2054 (Given - Provider: Klaudia Guidry RN) 0909 (Given - Provider: Nabil Greenwood RN) budesonide (PULMICORT) nebulizer solution 0.5 mg 0.5 mg, Nebulization, Daily (RT), First dose on Fri06/08/24 at 0900 0743 (Given - Provider: Alesia Cheney PAYROLL ACCOUNTANT) 0815 (Given - Provider: Deepika Morgan, ANAND) famotidine (PEPCID) tablet 20 mg 20 mg, Tube, 2 times daily, First dose on Fri06/07/24 at 2300 2300 (Not Given - Provider: Ameena Grubbs RN - Reason: NPO) 0847 (Given - Provider: Rusty Orta RN)2054 (Given - Provider: Klaudia Guidry RN) 0909 (Given - Provider: Nabil Greenwood RN) ipratropium-albuteroL (DUO-NEB) 0.5-2.5 mg/3 ml nebulizer solution 3 mL 3 mL, Inhalation, Every 6 hours scheduled (RT), First dose on Fri06/08/24 at 0200 0246 (Given - Provider: Robson Keller, PAYROLL ACCOUNTANT)0742 (Given - Provider: Alesia Cheney PAYROLL ACCOUNTANT)1343 (Given - Provider: Alesia Cheney RRT)1950 (Given - Provider: Elicia Diaz RRT) 0106 (Given - Provider: Elicia Diaz RRT)0815 (Given - Provider: Deepika Morgan, PAYROLL ACCOUNTANT)1400 (Canceled Entry - Provider: Nabli Greenwood RN) metoclopramide (REGLAN) 5 mg/5 mL solution 10 mg 10 mg, Tube, 2 times daily, First dose on Fri06/09/24 at 0945 0909 (Given - Provider: Nabil Greenwood RN) sertraline (ZOLOFT) tablet 50 mg 50 mg, Tube, Daily, First dose on Fri06/08/24 at 0900 0846 (Given - Provider: Rusty Orta RN) 0909 (Given - Provider: Nabil Greenwood RN) sodium chloride (PF) (NS) flush 5 mL(Linked Group 1) 5 mL, Intravenous, Every 8 hours scheduled, First dose on Fri06/07/24 at 2300, Saline lock 0043 (Given - Provider: Ameena Grubbs RN)0615 (Given - Provider: Ameena Grubbs RN)1400 (Not Given - Provider: Jose Youssef RN - Reason: Other - Comment: IV in use)2100 (Not Given - Provider: Klaudia Guidry RN - Reason: Other - Comment: IVF infusing) 0608 (Given - Provider: Klaudia Guidry, RN)1400 (Canceled Entry - Provider: Nabil Greenwood RN) Continuous Medication Order 06/07/2024 06/08/2024 06/09/2024 lactated Ringers infusion 100 mL/hr, Intravenous, Continuous, Starting on Fri06/08/24 at 1515, For 1 day 1522 (New Bag - Provider: Jose Youssef RN)2348 (New Bag - Provider: Klaudia Guidry RN) 1008 (New Bag - Provider: Nabil Greenwood RN) PRN Medication Order 06/07/2024 06/08/2024 06/09/2024 acetaminophen (TYLENOL) solution 650 mg (CANCELED) 650 mg, Tube, Every 6 hours PRN, headaches, Starting on Fri06/08/24 at 1615 1623 (Given - Provider: Jose Youssef RN) sbejxfqser-epjlobgxabjvj-ek ffeine (ESGIC) per tablet 2 tablet 2 tablet, Oral, Every 4 hours PRN, headaches, Starting on Fri06/09/24 at 0850, Max of 6 tablets per day 0909 (Given - Provid er: Nabil Greenwood RN) naloxone (NARCAN) injection 0.1 mg(Linked Group 2) 0.1 mg, Intravenous, As needed, opioid reversal, For respiratory rate less than or equal to 8 per minute., Starting on Fri06/08/24 at 1609, Mix nalOXone (NARCAN) 0.4 mg (1mL) with 9 mL of Normal Saline to total 10 mL. Administer 0.1 mg (2.5mL) IV Push every 2 minutes until respiratory rate is 10 or greater. naloxone (NARCAN) injection 0.4 mg(Linked Group 2) 0.4 mg, Intravenous, As needed, opioid reversal, patient is pulseless, breathless, and unresponsive, Starting on Fri06/08/24 at 1609, Call a code first, then administer naloxone dose undiluted IV Push over 30 seconds. nitroGLYCERIN (NITROSTAT) SL tablet 0.4 mg 0.4 mg, Sublingual, Every 5 min PRN, chest pain, Starting on Fri06/07/24 at 2207, For chest pain. May give up to 3 doses. Call physician for chest pain unrelieved by Nitroglycerin, or recurrent chest pain. DO NOT CRUSH OR CHEW. sodium chloride (PF) (NS) flush 5 mL(Linked Group 1) 5 mL, Intravenous, As needed, line care, Starting on Fri06/07/24 at 2207 sodium chloride 0.9% (NS)(Linked Group 1) 0-150 mL/hr, Intravenous, As needed, To flush line after IV infusions when no maintenance IV ordered or a compatibility issue. Infuse 20ml at the same rate as the secondary infusion, Starting on Fri06/07/24 at 2207, Run as Primary IV. NOT intended for KVO. traMADol (ULTRAM) tablet 50 mg 50 mg, Oral, Every 4 hours PRN, moderate to severe pain, Starting on Fri06/08/24 at 1609 Linked Groups Order Group 1: Saline lock IV (CANCELED) Routine, Continuous, Starting on Fri06/07/24 at 2208, Until Specified And sodium chloride (PF) (NS) flush 5 mLJump to med 5 mL, Intravenous, As needed, line care, Starting on Fri06/07/24 at 2207 And sodium chloride (PF) (NS) flush 5 mLJump to med 5 mL, Intravenous, Every 8 hours scheduled, First dose on Fri06/07/24 at 2300, Saline lock And sodium chloride 0.9% (NS)Jump to med 0-150 mL/hr, Intravenous, As needed, To flush line after IV infusions when no maintenance IV ordered or a compatibility issue. Infuse 20ml at the same rate as the secondary infusion, Starting on Fri06/07/24 at 2207, Run as Primary IV. NOT intended for KVO. Group 2: naloxone (NARCAN) injection 0.1 mgJump to med 0.1 mg, Intravenous, As needed, opioid reversal, For respiratory rate less than or equal to 8 per minute., Starting on Fri06/08/24 at 1609, Mix nalOXone (NARCAN) 0.4 mg (1mL) with 9 mL of Normal Saline to total 10 mL. Administer 0.1 mg (2.5mL) IV Push every 2 minutes until respiratory rate is 10 or greater. And Notify physician (CANCELED) STAT, Until discontinued, Starting on Fri06/08/24 at 1610, Until Specified, Respiratory rate less than: 8, For respiratory rate less than or equal to 8, notify physician and/or appropriate staff for additional orders. And naloxone (NARCAN) injection 0.4 mgJump to med 0.4 mg, Intravenous, As needed, opioid reversal, patient is pulseless, breathless, and unresponsive, Starting on Fri06/08/24 at 1609, Call a code first, then administer naloxone dose undiluted IV Push over 30 seconds. Scheduled Medication Order 07/04/2024 07/05/2024 07/06/2024 apixaban (ELIQUIS) tablet 5 mg 5 mg, Oral, EVERY 12 HOURS, First dose on Fri07/04/24 at 2100, Until Discontinued, Due to the rapid onset of action of apixaban, no overlap is needed with other anticoagulants (e.g. enoxaparin, heparin)., Indications: Venous Thromboembolism 3823 (Given - Provider: Catherine Garcia RN) 0929 (Given - Provider: Sarah Alcazar, DANIEL)2127 (Given - Provider: Eliica Mcdonald, DANIEL) 0949 (Given - Provider: Klaudia Vaughan, DANIEL) ceFEPIme (MAXIPIME) 2 g in sodium chloride 0.9% (MB PLUS) 100 mL (total volume) IVPB (COMPLETED) 2 g, Intravenous, Administer over 0.5 Hours, ONCE, 1 dose, On Fri07/04/24 at 1300, Infuse STAT doses over 30 minutes. Infuse other doses over 4 hours. 1216 ($$New Bag$$ - Provider: Celi Avila, DANIEL)1255 (Stopped - Provider: Celi Avila RN) ceFEPIme (MAXIPIME) 2 g in sodium chloride 0.9% (MB PLUS) 100 mL (total volume) IVPB 2 g, Intravenous, Administer over 4 Hours, EVERY 8 HOURS NON-STANDARD, First dose on Fri07/04/24 at 2100, Until Discontinued, Infuse STAT doses over 30 minutes. Infuse other doses over 4 hours. 221 ($$New Bag$$ - Provider: Catherine Garcia RN) 0559 ($$New Bag$$ - Provider: Catherine Garcia RN)1240 ($$New Bag$$ - Provider: Sarah Alcazar RN)212 ($$New Bag$$ - Provider: Elicia Mcdonald, RN) 0402 ($$New Bag$$ - Provider: Elicia Mcdonald RN)1328 ($$New Bag$$ - Provider: Klaudia Vaughan, RN) Doxazosin (CARDURA) tablet 4 mg 4 mg, Oral, DAILY AT BEDTIME, First dose on Fri07/04/24 at 2100, Until Discontinued 2218 (Given - Provider: Catherine Garcia RN) 2126 (Given - Provider: Elicia Mcdonald, RN) Finasteride (PROSCAR) tablet 5 mg 5 mg, Oral, DAILY, First dose on Fri07/05/24 at 0900, Until Discontinued, Do not split, break, crush or open this medication. Contact pharmacy if altered route or dose needed. 0930 (Not Given - Provider: Sarah Alcazar RN - Reason: Other - Comment: unable to crush.) 0949 (Given - Provider: Klaudia Vaughan, DANIEL) fluconazole (DIFLUCAN) tablet 150 mg 150 mg, Oral, DAILY, First dose on Fri07/05/24 at 1145, Until Discontinued, Swallow tablet whole; do not crush, split or chew. Contact pharmacy if alternate route or dose is needed. 1240 (Given - Provider: Sarah Alcazar RN) 0948 (Given - Provider: Klaudia Vaughan, DANIEL) fluticasone (FLONASE) 50 MCG/ACT nasal spray 2 spray 2 spray, Nasal, DAILY, First dose on Fri07/05/24 at 0900, Until Discontinued, Dose is for each nostril. 0931 (Not Given - Provider: Sarah Alcazar RN - Reason: Patient/family refused) 0957 (Not Given - Provider: Klaudia Vaughan, DANIEL - Reason: Patient/family refused) Ipratropium-albuterol (DUONEB) 0.5-2.5 (3) MG/3ML nebulizer solution 3 mL (COMPLETED) 3 mL, Nebulization, EVERY 15 MINUTES, 3 doses, First dose on 07/04/24 at 1100, Last dose on 07/04/24 at 1130 1122 (Given - Provider: Ivette Ordaz, ANAND)1127 (Given - Provider: Ivette Ordaz RRT)1128 (Given - Provider: Ivette Ordaz RRT) Ipratropium-albuterol (DUONEB) 0.5-2.5 (3) MG/3ML nebulizer solution 3 mL 3 mL, Nebulization, EVERY 6 HOURS NON-STANDARD, First dose on 07/04/24 at 1900, Until Discontinued 1918 (Given - Provider: Kaila Delgado RRT) 0056 (Given - Provider: Kaila Delgado RRT)0743 (Given - Provider: Jesus Alberto Daniels RRT)1336 (Given - Provider: Jesus Alberto Daniels RRT)1928 (Given - Provider: Jonn Dallas RCP) 0150 (Not Given - Provider: Jonn Dallas RCP - Reason: Patient sleeping - Comment: pt previously requested not to be woken up for 0100 treatment)0822 (Given - Provider: Natalia Wooten, ANAND)1540 (Not Given - Provider: Natalia Wooten RRT - Reason: Other)1900 (Canceled Entry - Provider: System Discharge - Comment: Automatically canceled at discontinue of medication order) levoFLOXacin (LEVAQUIN) 750 mg in dextrose 5% premix IVPB 750 mg, Intravenous, Administer over 90 Minutes, EVERY 24 HOURS, First dose on Fri07/04/24 at 1600, Until Discontinued 1522 ($$New Bag$$ - Provider: Sarah Diaz RN) 1614 ($$New Bag$$ - Provider: Sarah Alcazar RN) 1730 (Not Given - Provider: Klaudia Vaughan RN - Reason: Patient/family refused) Magnesium sulfate 2 g/50 ml in sterile water premix IVPB 2 g 50 mL (total volume) 2 g, Intravenous, Administer over 4 Hours, DAILY, First dose on Fri07/05/24 at 0600, Until Discontinued, Give if magnesium is less than 2 on morning labs. Infuse at a rate of 0.5 gm/hour. 0559 (Not Given - Provider: Catherine Garcia, DANIEL - Reason: Order Parameters not met) 0612 (Not Given - Provider: Elicia Mcdonald, DANIEL - Reason: Order Parameters not met) Melatonin tablet 6 mg 6 mg, Oral, DAILY AT BEDTIME, First dose on 07/04/24 at 2100, Until Discontinued 2218 (Given - Provider: Catherine Garcia, RN) 2126 (Given - Provider: Elicia Mcdonald, RN) methylPREDNISolone sodium succinate (SOLU-MEDROL) injection 40 mg 40 mg, Intravenous, EVERY 12 HOURS, First dose on 07/04/24 at 2100, Until Discontinued 2229 (Given - Provider: Catherine Garcia, DANIEL) 0929 (Given - Provider: Sarah Alcazar, DANIEL)212 (Given - Provider: Elicia Mcdonald, DANIEL) 0955 (Given - Provider: Klaudia Vaughan, DANIEL) Metoclopramide (REGLAN) tablet 5 mg 5 mg, Oral, 2 TIMES DAILY, First dose on 07/04/24 at 1700, Until Discontinued 1700 (Given - Provider: Sarah Diaz RN) 0929 (Given - Provider: Sarah Alcazar, DANIEL)1614 (Given - Provider: Sarah Alcazar, DANIEL) 0949 (Given - Provider: Klaudia Vaughan, DANIEL)1625 (Given - Provider: Klaudia Vaughan, DANIEL) metroNIDAZOLE (FLAGYL) 500 mg in NaCl premix IVPB (CANCELED) 500 mg, Intravenous, at 200 mL/hr, Administer over 30 Minutes, EVERY 8 HOURS, First dose on 07/04/24 at 1400, Until Discontinued 1255 ($$New Bag$$ - Provider: Celi Avila, DANIEL) Non-Formulary Enteral Feed PEG Tube, 3 times daily enteral feeds, First dose on 07/05/24 at 1200, Until Discontinued, 3-4 times per day - per /patient Flush with 30 ml before and after each bolus, Brand Name: Boost [facility], Dosing: Bolus, Starting amount (mL): 250, Goal amount (mL): 250 1200 (Canceled Entry - Provider: System Discharge - Comment: Automatically canceled at discontinue of medication order)1700 (Canceled Entry - Provider: System Discharge - Comment: Automatically canceled at discontinue of medication order) 1020 (Canceled Entry - Provider: Klaudia Vaughan RN - Comment: spouse does feed overnight)1200 (Canceled Entry - Provider: System Discharge - Comment: Automatically canceled at discontinue of medication order)1324 (Stopped - Provider: Klaudia Vaughan RN - Comment: feeding given overnight by spouse)1700 (Canceled Entry - Provider: System Discharge - Comment: Automatically canceled at discontinue of medication order) Ondansetron 4mg/2ml (ZOFRAN) injection 4 mg (COMPLETED) 4 mg, Intravenous, ONCE, 1 dose, On 07/04/24 at 1115 1112 (Given - Provider: Celi Avila, DANIEL) Pantoprazole (PROTONIX) injection 40 mg (COMPLETED) 40 mg, Intravenous, ONCE, 1 dose, On 07/04/24 at 1115, Dilute each 40 mg vial with 10 mL of NS. All bolus doses, whether 40 mg or 80 mg, should be administered over at least two minutes., Indications: Inpt Stress Ulcer Prophylaxis 1114 (Given - Provider: Celi Avila RN) Pantoprazole (PROTONIX) injection 40 mg 40 mg, Intravenous, DAILY, First dose on 07/05/24 at 1415, Until Discontinued, Dilute each 40 mg vial with 10 mL of NS. All bolus doses, whether 40 mg or 80 mg, should be administered over at least two minutes., Indications: Inpt Stress Ulcer Prophylaxis 1614 (Given - Provider: Sarah Alcazar, DANIEL) 0959 (Given - Provider: Klaudia Vaughan, DANIEL) Polyethylene glycol (MIRALAX) packet 17 g 17 g, Oral, DAILY, First dose on 07/04/24 at 1415, Until Discontinued, Hold if diarrhea 1434 (Not Given - Provider: Sarah Diaz RN - Reason: Patient/family refused) 0929 (Given - Provider: Sarah Alcazar RN) 0948 (Not Given - Provider: Klaudia Vaughan, DANIEL - Reason: Patient/family refused) Potassium chloride (K-DUR) tablet ER 40 mEq(Linked Group 1) 40 mEq, Oral, DAILY, First dose on Fri07/05/24 at 0600, Until Discontinued, Give if potassium is 3.1 to 3.4 on morning labs and patient is able to tolerate oral medications Swallow tablets whole; do not crush, chew, or suck on tablet. Tablet may also be broken in half and each half swallowed separately. 0559 (See Alternative - Provider: Catherine Garcia RN) 0610 (Not Given - Provider: Elicia Mcdonald RN - Reason: Order Parameters not met) potassium chloride 40 mEq in 0.9% sodium chloride 500 ml IVPB(Linked Group 1) 40 mEq, Intravenous, Administer over 4 Hours, DAILY, First dose on Fri07/05/24 at 0600, Until Discontinued, Give if potassium is less than 3.1 on morning labs OR if potassium is 3.1 to 3.4 on morning labs and patient is UNABLE to tolerate oral medications 0559 (Not Given - Provider: Catherine Garcia RN - Reason: Order Parameters not met) 0610 (See Alternative - Provider: Elicia Mcdonald, DANIEL) probiotic blend (RISAQUAD) capsule 1 capsule 1 capsule, Oral, 2 TIMES DAILY, First dose on Fri07/04/24 at 1700, Until Discontinued 1658 (Given - Provider: Sarah Diaz RN) 0929 (Given - Provider: Sarah Alcazar RN)1614 (Given - Provider: Sarah Alcazar, DANIEL) 0948 (Given - Provider: Klaudia Vaughan, DANIEL)1624 (Not Given - Provider: Klaudia Vaughan RN - Reason: Patient/family refused) Sertraline (ZOLOFT) tablet 25 mg 25 mg, Oral, DAILY, First dose on Fri07/04/24 at 1800, Until Discontinued 2230 (Not Given - Provider: Catherine Garcia RN - Reason: Other) 0929 (Given - Provider: Sarah Alcazar RN) 0949 (Given - Provider: Klaudia Vaughan, DANIEL) vancomycin (VANCOCIN) 1,000 mg in dextrose 200 ml premix IVPB 1,000 mg, Intravenous, EVERY 8 HOURS NON-STANDARD, First dose on Fri07/04/24 at 1600, Until Discontinued, Infuse at a rate of 1 gram/hour. Extravasation Risk 1705 ($$New Bag$$ - Provider: Sarah Diaz RN) 0201 ($$New Bag$$ - Provider: Catherine Garcia RN)0931 ($$New Bag$$ - Provider: Sarah Alcazar RN)1743 ($$New Bag$$ - Provider: Sarah Alcazar RN) 0143 ($$New Bag$$ - Provider: Elicia Mcdonald RN)1000 ($$New Bag$$ - Provider: Klaudia Vaughan, RN)1730 (Not Given - Provider: Klaudia Vaughan RN - Reason: Patient/family refused) Continuous Medication Order 07/04/2024 07/05/2024 07/06/2024 Dextrose 5% and sodium chloride 0.45% IV solution (CANCELED) Intravenous, at 100 mL/hr, CONTINUOUS, Starting on Fri07/04/24 at 1445, Until Fri07/05/24 at 1118 1522 ($$New Bag$$ - Provider: Sarah Diaz RN) Non-Formulary Enteral Feed PEG Tube, CONTINUOUS, Starting on Fri07/05/24 at 1900, Until Fri07/06/24 at 0659, will bring in formula from home Free water flush 80 ml every 2 hrs (wait 2 hours after bolus feeds), Brand Name: Complete 1.5, Dosing: Cycled, Starting cycled feed rate (mL/hr): 94, Goal cycled feed rate (mL/hr): 94, Cycled feed duration (hours): 12 1900 (New Feeding/Supplement - Provider: Elicia Mcdonald RN - Comment: pt supplied) PRN Medication Order 07/04/2024 07/05/2024 07/06/2024 Acetaminophen (TYLENOL) tablet 325-650 mg 325-650 mg, Oral, EVERY 4 HOURS NEEDED, Starting on Fri07/04/24 at 1409, Until Fri07/06/24 at 2003, Mild Pain, Maximum dose of acetaminophen is 4000 mg from all sources in 24 hours. diphenhydrAMINE (BENADRYL) injection 25 mg 25 mg, Intravenous, EVERY 6 HOURS NEEDED, Starting on Fri07/04/24 at 1409, Until Fri07/06/24 at 2003, Itching, Sleep, Allergic Reaction (Swelling throat, tongue or lips, rash, difficulty breathing), Infusion Reaction Ipratropium-albuterol (DUONEB) 0.5-2.5 (3) MG/3ML nebulizer solution 3 mL 3 mL, Nebulization, EVERY 4 HOURS NEEDED, Starting on Fri07/04/24 at 1359, Until Fri07/06/24 at 2003, Shortness of Breath, Wheezing, Cough, Breathing Treatment Labetalol (NORMODYNE) injection 20 mg 20 mg, Intravenous, EVERY 4 HOURS NEEDED, Starting on Fri07/04/24 at 1409, Until Fri07/06/24 at 2003, systolic blood pressure greater than 160, Administration duration: up to 20 mg over 2 minutes. lactulose (CHRONULAC) oral solution 20 g 20 g, Oral, EVERY 4 HOURS NEEDED, Starting on Fri07/04/24 at 1409, Until Fri07/06/24 at 2003, Constipation 1st Line Ondansetron 4mg/2ml (ZOFRAN) injection 4 mg 4 mg, Intravenous, EVERY 4 HOURS NEEDED, Starting on Fri07/04/24 at 1409, Until Fri07/06/24 at 2003, Nausea / Vomiting SUMAtriptan (IMITREX) tablet 50 mg 50 mg, Oral, 2 TIMES DAILY NEEDED, Starting on Fri07/04/24 at 1400, Until Fri07/06/24 at 2003, Migraine, Max 200 mg/24 hr 1132 (Given - Provider: Sarah Alcazar RN) 1423 (Given - Provider: Jesus Alberto Santana RN) traMADol (ULTRAM) tablet 50 mg 50 mg, Oral, EVERY 6 HOURS NEEDED, Starting on Fri07/04/24 at 1409, Until Fri07/06/24 at 2003, Moderate Pain 1526 (Given - Provider: Sarah Diaz RN) Linked Groups Order Group 1: Potassium chloride (K-DUR) tablet ER 40 mEqJump to med 40 mEq, Oral, DAILY, First dose on Fri07/05/24 at 0600, Until Discontinued, Give if potassium is 3.1 to 3.4 on morning labs and patient is able to tolerate oral medications Swallow tablets whole; do not crush, chew, or suck on tablet. Tablet may also be broken in half and each half swallowed separately. Or potassium chloride 40 mEq in 0.9% sodium chloride 500 ml IVPBJump to med 40 mEq, Intravenous, Administer over 4 Hours, DAILY, First dose on Fri07/05/24 at 0600, Until Discontinued, Give if potassium is less than 3.1 on morning labs OR if potassium is 3.1 to 3.4 on morning labs and patient is UNABLE to tolerate oral medications Scheduled Medication Order 07/29/2024 07/30/2024 07/31/2024 Acetaminophen (TYLENOL) tablet 975 mg 975 mg, Oral, ONCE, 1 dose, On Fri07/30/24 at 1115, Maximum dose of acetaminophen is 4000 mg from all sources in 24 hours. 1237 (Not Given - Provider: Elicia Leigh RN - Reason: Patient/family refused) apixaban (ELIQUIS) tablet 5 mg 5 mg, PEG Tube, EVERY 12 HOURS, First dose (after last modification) on Fri07/30/24 at 1230, Until Discontinued, Due to the rapid onset of action of apixaban, no overlap is needed with other anticoagulants (e.g. enoxaparin, heparin)., Indications: Atrial Fibrillation 1338 (Given - Provider: Elicia Leigh RN)2126 (Given - Provider: Carlton Naylor RN) 922 (Given - Provider: Omer Segovia RN) aspirin chewable tablet 81 mg 81 mg, Oral, DAILY, First dose on 07/31/24 at 0900, Until Discontinued 922 (Given - Provid er: Omer Segovia RN) Dextrose 10% IV solution 250 mL(Linked Group 1) 250 mL, Intravenous, at 999 mL/hr, SEE ADMIN INSTRUCTIONS, Starting on Fri07/30/24 at 1219, Until 07/31/24 at 1740, Give Dextrose 10% 250 mL IV x 1 at a rate of 999 mL/hr for blood glucose LESS THAN 20 mg/dL or any blood glucose LESS THAN 70 mg/dL and patient has an altered level of consciousness, unable to swallow, or NPO. Notify physician and repeat blood glucose in 20 minutes. May repeat x 1 if repeat blood glucose less than 60 mg/dL Doxazosin (CARDURA) tablet 4 mg 4 mg, PEG Tube, DAILY AT BEDTIME, First dose (after last modification) on Fri07/30/24 at 2100, Until Discontinued 2126 (Not Given - Provider: Carlton Naylor RN - Reason: Patient/family refused) Doxycycline hyclate (VIBRAMYCIN) 100 mg in sodium chloride 0.9% (MB PLUS) 100 mL (total volume) IVPB 100 mg, Intravenous, Administer over 60 Minutes, EVERY 12 HOURS, First dose on Fri07/31/24 at 0900, Until Discontinued, Extravasation Risk 1408 (Not Given - Provider: Omer Segovia RN - Reason: Patient/family refused) Finasteride (PROSCAR) tablet 5 mg 5 mg, Oral, DAILY, First dose on Fri07/30/24 at 2100, Until Discontinued, Do not split, break, crush or open this medication. Contact pharmacy if altered route or dose needed., On hold since Fri07/30/2024 at 1216 until manually unheld 1216 (Held by provider - Provider: JERAD Ruth - Reason: NPO)2100 (Automatically Held - Provider: JERAD Ruth) 1740 (Unheld by provider - Provider: System Discharge) fluticasone (FLONASE) 50 MCG/ACT nasal spray 2 spray 2 spray, Nasal, DAILY, First dose on Fri07/30/24 at 1145, Until Discontinued, Dose is for each nostril. 1242 (Given - Provider: Elicia Leigh, DANIEL) 0927 (Given - Provider: Omer Segovia RN) Fluticasone-Salmeterol (ADVAIR HFA) 230-21 MCG/ACT inhaler 1 puff 1 puff, Inhalation, EVERY 12 HOURS, First dose on Fri07/30/24 at 1330, Until Discontinued 1411 (Given - Provider: Annetta Gonzalez, PAYROLL ACCOUNTANT)1934 (Given - Provider: Tamika Nascimento, ANAND) 0751 (Given - Provider: Leia Miranda, ANAND) glucose chewable tablet CHEW 16-32 g(Linked Group 1) 16-32 g (4-8 tablet), Oral, SEE ADMIN INSTRUCTIONS, Starting on Fri07/30/24 at 1219, Until Fri07/31/24 at 1740, If patient is alert and able to tolerate oral medications and blood glucose 69 - 50 mg/dL: give 4 chew tabs, if blood glucose 49 - 20 mg/dL: give 8 chew tabs. Notify physician and repeat blood glucose in 20 minutes. May repeat treatment x 1 if blood glucose less than 60 mg/dL. For alternative treatment options (juice, etc.) refer to the hypoglycemia management protocol on Ellucid: [id number] Management Protocol. insulin lispro (HumaLOG) injection(Linked Group 1) Subcutaneous, EVERY 6 HOURS, First dose on Fri07/30/24 at 1230, Until Discontinued, Sliding Scale parameters: Blood glucose under 70 = call physician; 151 - 200 = 2 units; 201 - 250 = 4 units; 251 - 300 = 6 units; 301 - 350 = 8 units; 351 - 400 = 10 units; Over 400 = call physician. 1241 (Not Given - Provider: Elicia Leigh RN - Reason: Order Parameters not met)1758 (Not Given - Provider: Stacie Sands RN - Reason: Order Parameters not met) 0125 (Given - Provider: Carlton Naylor, RN)0617 (Given - Provider: Carlton Naylor, DANIEL)1200 (Canceled Entry - Provider: System Discharge - Comment: Automatically canceled at discontinue of medication order) Ketorolac (TORADOL) injection 30 mg (COMPLETED) 30 mg, Intravenous, ONCE, 1 dose, On Fri07/30/24 at 1230 1232 (Given - Provider: Elicia Leigh RN) Magnesium sulfate 2 g/50 ml in sterile water premix IVPB 2 g 50 mL (total volume) 2 g, Intravenous, Administer over 4 Hours, DAILY, First dose on 07/31/24 at 0600, Until Discontinued, Give if magnesium is less than 2 on morning labs. Infuse at a rate of 0.5 gm/hour. 0602 (Not Given - Provider: Carlton Naylor RN - Reason: Order Parameters not met) Pantoprazole (PROTONIX) injection 40 mg 40 mg, Intravenous, DAILY, First dose on Fri07/30/24 at 1300, Until Discontinued, Dilute each 40 mg vial with 10 mL of NS. All bolus doses, whether 40 mg or 80 mg, should be administered over at least two minutes., Indications: Inpt Stress Ulcer Prophylaxis 1232 (Given - Provider: Elicia Leigh RN) 0923 (Given - Provider: Omer Segovia RN) Potassium chloride (K-DUR) tablet ER 40 mEq(Linked Group 2) 40 mEq, Oral, DAILY, First dose on 07/31/24 at 0600, Until Discontinued, Give if potassium is 3.1 to 3.4 on morning labs and patient is able to tolerate oral medications Swallow tablets whole; do not crush, chew, or suck on tablet. Tablet may also be broken in half and each half swallowed separately. 0603 (Not Given - Provider: Carlton Naylor RN - Reason: Order Parameters not met) potassium chloride 40 mEq in 0.9% sodium chloride 500 ml IVPB(Linked Group 2) 40 mEq, Intravenous, Administer over 4 Hours, DAILY, First dose on 07/31/24 at 0600, Until Discontinued, Give if potassium is less than 3.1 on morning labs OR if potassium is 3.1 to 3.4 on morning labs and patient is UNABLE to tolerate oral medications 0603 (See Alternativ e - Provider: Carlton Naylor RN) Sertraline (ZOLOFT) tablet 25 mg 25 mg, PEG Tube, DAILY, First dose (after last modification) on 07/31/24 at 0900, Until Discontinued 09 (Given - Provid er: Omer Segovia RN) tiotropium (SPIRIVA) inhalation capsule 18 mcg 18 mcg, Inhalation, DAILY, First dose on Fri07/30/24 at 1400, Until Discontinued 1411 (Given - Provider: Annetta Gonzalez RRT) 0752 (Given - Provider: Leia Miranda RRT) Continuous Medication Order 07/29/2024 07/30/2024 07/31/2024 Sodium chloride 0.9% IV solution Intravenous, at 100 mL/hr, CONTINUOUS, Starting on 07/31/24 at 0815, Until 07/31/24 at 1740 0938 ($$New Bag$$ - Provider: Omer Segovia RN)1432 (Stopped - Provider: Omer Segovia RN) PRN Medication Order 07/29/2024 07/30/2024 07/31/2024 acetaminophen (TYLENOL) suppository 325 mg 325 mg, Rectal, EVERY 4 HOURS NEEDED, Starting on Fri07/30/24 at 1219, Until 07/31/24 at 1740, Oral temp > 101.5 F Acetaminophen (TYLENOL) tablet 650 mg 650 mg, Oral, EVERY 4 HOURS NEEDED, Starting on Fri07/30/24 at 1352, Until 07/31/24 at 1740, Mild Pain, Oral temp > 100.4 F 2334 (Given - Provider: Carlton Naylor RN) 6558 (Given - Provider: Carlton Naylor RN - Comment: Fever 100.1- pt request) bisacodyl (DULCOLAX) suppository 10 mg 10 mg, Rectal, DAILY NEEDED, Starting on Fri07/30/24 at 1220, Until 07/31/24 at 1740, Constipation 1st Line Labetalol (NORMODYNE) injection 20 mg 20 mg, Intravenous, EVERY 6 HOURS NEEDED, Starting on Fri07/30/24 at 1220, Until 07/31/24 at 1740, sbp>160 nitroGLYCERIN (NITROSTAT) tablet SL 0.4 mg 0.4 mg, Sublingual, EVERY 5 MINUTES NEEDED, Starting on Fri07/30/24 at 1220, Until 07/31/24 at 1740, Chest pain, Maximum of three consecutive doses in 15 minutes. Do not chew, crush, or swallow sublingual tablet. Place under tongue and allow to dissolve. Alternately, may be placed in the buccal pouch. Ondansetron 4mg/2ml (ZOFRAN) injection 4 mg 4 mg, Intravenous, EVERY 6 HOURS NEEDED, Starting on Fri07/30/24 at 1221, Until 07/31/24 at 1740, Nausea / Vomiting Linked Groups Order Group 1: insulin lispro (HumaLOG) injectionJump to med Subcutaneous, EVERY 6 HOURS, First dose on Fri07/30/24 at 1230, Until Discontinued, Sliding Scale parameters: Blood glucose under 70 = call physician; 151 - 200 = 2 units; 201 - 250 = 4 units; 251 - 300 = 6 units; 301 - 350 = 8 units; 351 - 400 = 10 units; Over 400 = call physician. And Glucose (POC device) (CANCELED) Routine, EVERY 6 HOURS, First occurrence on Fri07/30/24 at 1800, Until Specified And Glucose (POC device) (CANCELED) Routine, ONE TIME, On Fri07/30/24 at 1220, For 1 occurrence, For all Blood Glucose LESS THAN 70 mg/dL, recheck 20 min after treatment then notify physician. And glucose chewable tablet CHEW 16-32 gJump to med 16-32 g (4-8 tablet), Oral, SEE ADMIN INSTRUCTIONS, Starting on Fri07/30/24 at 1219, Until 07/31/24 at 1740, If patient is alert and able to tolerate oral medications and blood glucose 69 - 50 mg/dL: give 4 chew tabs, if blood glucose 49 - 20 mg/dL: give 8 chew tabs. Notify physician and repeat blood glucose in 20 minutes. May repeat treatment x 1 if blood glucose less than 60 mg/dL. For alternative treatment options (juice, etc.) refer to the hypoglycemia management protocol on Ellucid: P-LX-Rvytrqhovxnr Management Protocol. And Dextrose 10% IV solution 250 mLJump to med 250 mL, Intravenous, at 999 mL/hr, SEE ADMIN INSTRUCTIONS, Starting on Fri07/30/24 at 1219, Until 07/31/24 at 1740, Give Dextrose 10% 250 mL IV x 1 at a rate of 999 mL/hr for blood glucose LESS THAN 20 mg/dL or any blood glucose LESS THAN 70 mg/dL and patient has an altered level of consciousness, unable to swallow, or NPO. Notify physician and repeat blood glucose in 20 minutes. May repeat x 1 if repeat blood glucose less than 60 mg/dL And NOTIFY PHYSICIAN, Blood Glucose LESS THAN 70 mg/dl or greater than 400 mg/dl (CANCELED) Routine, CONTINUOUS, Starting on Fri07/30/24 at 1220, Until Specified, Who to Notify: RUNNER OUT/Physician, For all Blood Glucose LESS THAN 70 mg/dl, or greater than 400 mg/dl notify RUNNER OUT/Physician Group 2: Potassium chloride (K-DUR) tablet ER 40 mEqJump to med 40 mEq, Oral, DAILY, First dose on 07/31/24 at 0600, Until Discontinued, Give if potassium is 3.1 to 3.4 on morning labs and patient is able to tolerate oral medications Swallow tablets whole; do not crush, chew, or suck on tablet. Tablet may also be broken in half and each half swallowed separately. Or potassium chloride 40 mEq in 0.9% sodium chloride 500 ml IVPBJump to med 40 mEq, Intravenous, Administer over 4 Hours, DAILY, First dose on 07/31/24 at 0600, Until Discontinued, Give if potassium is less than 3.1 on morning labs OR if potassium is 3.1 to 3.4 on morning labs and patient is UNABLE to tolerate oral medications Scheduled Medication Order 11/20/2024 11/21/2024 11/22/2024 amoxicillin-clavulanate (AUGMENTIN) 875-125 mg per tablet 1 tablet 1 tablet, Oral, Every 12 hours scheduled, First dose on Fri11/22/24 at 0915, Indication: COPD 0840 (Given - Provider: Quinn Cortes, DANIEL) apixaban (ELIQUIS) tablet 5 mg 5 mg, Tube, 2 times daily, First dose on Fri11/18/24 at 1300, Indication: DVT/PE, How long has patient been on apixaban? 7 Days - 6 Months 0830 (Given - Provider: Jose Youssef RN)2009 (Given - Provider: Angela Rey, DANIEL) 0849 (Given - Provider: Kelli Chi, DANIEL)2006 (Given - Provider: Rubia Adler, DANIEL) 827 (Given - Provider: Quinn Cortes, DANIEL) aspirin chewable tablet 81 mg 81 mg, Tube, Daily, First dose on Fri11/19/24 at 0900 0830 (Given - Provider: Jose Youssef RN) 0849 (Given - Provider: Kelli Chi RN) 08 (Given - Provider: Quinn Cortes, DANIEL) azithromycin (ZITHROMAX) tablet 250 mg (CANCELED) 250 mg, Tube, 3 times weekly (Once per day on Friday), First dose (after last modification) on Fri11/19/24 at 0900, Indication: COPD Exacerbation 0828 (Given - Provider: uQinn Cortes, DANIEL) famotidine (PEPCID) 40 mg/5 mL (8 mg/mL) suspension 20 mg 20 mg, Tube, 2 times daily, First dose (after last modification) on Betty 11/18/24 at 0900 0830 (Given - Provider: Jose Youssef RN)2009 (Given - Provider: Angela Rey, DANIEL) 0853 (Given - Provider: Kelli Chi, DANIEL)2007 (Given - Provider: Rubia Adler, DANIEL) 827 (Given - Provider: Quinn Cortes, DANIEL) finasteride (PROSCAR) tablet 5 mg 5 mg, Oral, Daily, First dose on Fri11/19/24 at 0900, CATEGORY D HAZARDOUS DRUG use safe handling precautions. Use reference link to view PPE guidelines. Minimize crushing/splitting only to situations where clinically necessary., On hold since [facility] 11/18/2024 at 1520 until manually unheld 0900 (Automatically Held - Provider: Sivakumar Arias DO) 0900 (Automatically Held - Provider: Sivakumar Arias DO) 0900 (Automatically Held - Provider: Sivakumar Arias DO)1251 (Unheld by provider - Provider: Discharge Provider, Automatic) fluticasone propionate (FLONASE) 50 mcg/actuation nasal spray 1 spray 1 spray, Nasal, Daily, First dose on 11/20/24 at 1130, Drug Name: Flonase, Form: Nasal [place] Syringe, Dose: 50, Dose Units: mcg, Length of Therapy: Indefinite, How soon needed? (normally 72 hrs needed to procure): 0-24 hrs, Reason for Non-Formulary: allergies, Will this medication be patient supplied? Yes 1130 (Given - Provider: Jose Youssef RN) 0854 (Given - Provider: Kelli Chi RN) 0900 (Due) linezolid (ZYVOX) tablet 600 mg 600 mg, Oral, 2 times daily, First dose on 11/22/24 at 0915, Indication: MRSA Infection 0840 (Given - Provider: Quinn Cortes RN) magnesium sulfate 2 g in sterile water (SW) 50 mL IVPB (COMPLETED) 2 g, Intravenous, at 50 mL/hr, Once, On 11/21/24 at 0615, For 1 dose, 2gm IVPB over 60 minutes x 1 for serum Magnesium in range of 1.4-1.9 mg/dL per Critical/ Intermediate Care Electrolyte Replacement Therapy. 0521 (New Bag - Provider: Angela Rey, RN)0600 (Rate/Dose Verify - Provider: Angela Rey, RN) piperacillin-tazobactam (ZOSYN) IVPB 3.375 g (premix) (CANCELED) 3.375 g, Intravenous, at 12.5 mL/hr, Every 8 hours, First dose on Betty 11/18/24 at 0400, For 7 days, Start infuse 3 hours after loading dose of Zosyn 4.5 gm VESICANT, Indication: Sepsis 0024 (Stopped - Provider: Jose Youssef, RN)0353 (New Bag - Provider: Ivette Whiteside RN)0753 (Stopped - Provider: Jose Youssef, RN)1138 (New Bag - Provider: Jose Youssef, RN)1540 (Stopped - Provider: Jose Youssef, RN)2009 (New Bag - Provider: Angela Rey, RN)2200 (Rate/Dose Verify - Provider: Angela Rey, RN) 0000 (Rate/Dose Verify - Provider: Angela Rey, RN)0200 (Rate/Dose Verify - Provider: Angela Rey, RN)0334 (New Bag - Provider: Angela Rey, RN)0400 (Rate/Dose Verify - Provider: Angela Rey, RN)0600 (Rate/Dose Verify - Provider: Angela Rey, RN)0614 (Stopped - Provider: Rubia Adler RN)0614 (Stopped - Provider: Rubia Adler RN)0614 (Stopped - Provider: Rubia Adler RN)1424 (New Bag - Provider: Kelli Chi RN)1457 (Paused - Provider: Rubia Adler RN)1457 (Restarted - Provider: Rubia Adler RN)1459 (Paused - Provider: Rubia Adler RN)1505 (Restarted - Provider: Rubia Adler RN)1510 (Paused - Provider: Rubia Adler RN)1510 (Restarted - Provider: Rubia Adler, RN)1512 (Paused - Provider: Rubia Adler RN)1512 (Restarted - Provider: Rubia Adler, RN)1832 (Stopped - Provider: Rubia Adler RN)2005 (New Bag - Provider: Rubia Adler RN)202 (Paused - Provider: Rubia Adler RN)202 (Restarted - Provider: Rubia Adler RN)210 (Paused - Provider: Rubia Adler, RN)210 (Restarted - Provider: Rubia Adler RN)222 (Paused - Provider: Rubia Adler, RN)222 (Restarted - Provider: Rubia Adler RN) 0003 (Paused - Provider: Rubia Adler RN)0003 (Restarted - Provider: Rubia Adler RN)0009 (Stopped - Provider: Rubia Adler RN)0319 (New Bag - Provider: Rubia Adler RN)0602 (Rate/Dose Verify - Provider: Rubia Adler RN) potassium bicarbonate (K-LYTE) 25 MEQ disintegrating tablet 25 mEq (COMPLETED) 25 mEq, Tube, Once, On 11/20/24 at 0530, For 1 dose, For serum Potassium in range of 3.5-4 mEq/L per Critical Care Electrolyte Replacement Therapy. Pause the enteral feed (if applicable), and flush tube with 10 mL water. Dissolve tablet completely in 3-4 ounces of cold water or juice using a container of appropriate size (do NOT dissolve in syringe to avoid gas production and clogging of tube). Ensure tablets are completely dissolved (no fizz) to avoid gas production in the enteral feeding tube and clogging of tube. Draw up dose in syringe. Inspect contents of syringe to ensure no visible particles that might cause blockage. Administer dose via tube. Flush with 10 mL water. Restart feeds (if applicable). Dissolve tablet completely in 3-4 ounces of cold water or juice 0550 (Given - Provider: Ivette Whiteside RN) potassium chloride (KAYCIEL) 20 mEq/15 mL solution 20 mEq (COMPLETED) 20 mEq, Tube, Once, On Fri11/21/24 at 0615, For 1 dose, 20mEq per tube x 1 for serum Potassium in range of 3.5-4 mEq/L per Critical Care Electrolyte Replacement Therapy. Dilute with 4 oz. of water or juice., Ordering of this medication is restricted. Please select which of the following applies: Patient has a small bowel feeding tube 0522 (Given - Provider: Angela Rey RN) roflumilast (DALIRESP) tablet 500 mcg 500 mcg, Tube, Daily, First dose (after last modification) on Fri11/19/24 at 0900 0830 (Given - Provider: Jose Youssef RN) 0849 (Given - Provider: Kelli Chi RN) 0828 (Given - Provider: Quinn Cortes RN) sertraline (ZOLOFT) tablet 50 mg 50 mg, Tube, Daily, First dose (after last modification) on Fri11/19/24 at 0900 0830 (Given - Provider: Jose Youssef RN) 0849 (Given - Provider: Kelli Chi, DANIEL) 0828 (Given - Provider: Quinn Cortes, DANIEL) sodium chloride (PF) (NS) flush 10 mL 10 mL, Intracatheter, Every 8 hours scheduled, First dose on Fri11/17/24 at 2320, Flush UNUSED central venous catheter lumens. 0550 (Given - Provider: Ivette Whiteside RN)1304 (Given - Provider: Jose Youssef RN)2200 (Not Given - Provider: Angela Rey RN - Reason: Order parameters not met) 0600 (Not Given - Provider: Angela Rey RN - Reason: Other)1400 (Canceled Entry - Provider: Kelli Chi RN)2200 (Canceled Entry - Provider: Rubia Adler RN) 0600 (Canceled Entry - Provider: Rubia Adler RN) umeclidinium-vilanteroL 62.5-25 mcg/actuation DsDv 1 Inhalation 1 Inhalation, Inhalation, Daily (RT), First dose on 11/20/24 at 1130, Drug Name: Anora [place], Form: inhalant powder, Dose: 1 inhalation, Length of Therapy: Indefinite, How soon needed? (normally 72 hrs needed to procure): 0-24 hrs, Reason for Non-Formulary: Anaphylaxis to most inhalers and nebulized treatments., Will this medication be patient supplied? Yes 1130 (Given - Provider: Jose Youssef RN) 0854 (Given - Provider: Kelli Chi, DANIEL) 0900 (Due) vancomycin (VANCOCIN) 1250 mg in sodium chloride 0.9% (NS) 250 mL IVPB (CANCELED) 1,250 mg, Intravenous, at 200 mL/hr, Every 12 hours, First dose on 11/20/24 at 1300, Indication: HAP/VAP 1303 (New Bag - Provider: Jose Youssef RN)1421 (Stopped - Provider: Jose Youssef RN) 0030 (New Bag - Provider: Angela Rey, DANIEL)0145 (Stopped - Provider: Angela Rey, DANIEL)1419 (New Bag - Provider: Kelli Chi RN)1419 (Paused - Provider: Rubia Brown, RN)1420 (Restarted - Provider: Rubia Adler RN)1457 (Paused - Provider: Rubia Adler RN)1457 (Restarted - Provider: Rubia Adler RN)1505 (Paused - Provider: Rubia Adler RN)1505 (Restarted - Provider: Rubia Adler RN)1508 (Paused - Provider: Rubia Adler RN)1510 (Restarted - Provider: Rubia Adler RN)1512 (Paused - Provider: Rubia Adler RN)1512 (Restarted - Provider: Rubia Adler RN)1518 (Paused - Provider: Rubia Adler RN)1518 (Restarted - Provider: Rubia Adler RN)1522 (Paused - Provider: Rubia Adler RN)1522 (Restarted - Provider: Rubia Adler RN)1542 (Stopped - Provider: Rubia Adler, RN) 0003 (New Bag - Provider: Rubia Adler RN)0010 (Paused - Provider: Rubia Adler RN)0010 (Restarted - Provider: Rubia Adler RN)0012 (Paused - Provider: Rubia Adler RN)0012 (Restarted - Provider: Rubia Adler RN)0119 (Stopped - Provider: Rubia Adler RN) PRN Medication Order 11/20/2024 11/21/2024 11/22/2024 acetaminophen (TYLENOL) solution 650 mg 650 mg, Tube, Every 4 hours PRN, mild pain, headaches, Starting on Betty 11/18/24 at 0542, Do not exceed max of 4000 mg acetaminophen in 24 hours. loperamide (IMODIUM) 1 mg/7.5 mL solution 2 mg 2 mg, Tube, 4 times daily PRN, diarrhea, Starting on 11/21/24 at 1350, Do not exceed 16 MG (8 caps)/ 24 HRS 2006 (Given - Provider: Rubia Adler RN) 0930 (Given - Provider: Quinn Cortes RN) naloxone (NARCAN) injection 0.1 mg(Linked Group 1) 0.1 mg, Intravenous, As needed, opioid reversal, For respiratory rate less than or equal to 8 per minute., Starting on 11/17/24 at 2313, Mix nalOXone (NARCAN) 0.4 mg (1mL) with 9 mL of Normal Saline to total 10 mL. Administer 0.1 mg (2.5mL) IV Push every 2 minutes until respiratory rate is 10 or greater. naloxone (NARCAN) injection 0.4 mg(Linked Group 1) 0.4 mg, Intravenous, As needed, opioid reversal, patient is pulseless, breathless, and unresponsive, Starting on Fri11/17/24 at 2313, Call a code first, then administer naloxone dose undiluted IV Push over 30 seconds. senna-docusate (SENNA-S) 8.6-50 mg per tablet 1 tablet 1 tablet, Tube, Daily PRN, constipation, Starting on [place] 11/21/24 at 0900, Do not crush or chew. Hold for loose stool. Do Not Crush or Chew if administering orally due to bitter taste. May be crushed if given via tube. sodium chloride (PF) (NS) flush 5 mL(Linked Group 2) 5 mL, Intravenous, As needed, line care, Starting on 11/17/24 at 1853 sodium chloride 0.9% (NS)(Linked Group 2) 0-150 mL/hr, Intravenous, As needed, To flush line after IV infusions when no maintenance IV ordered or a compatibility issue. Infuse 20ml at the same rate as the secondary infusion, Starting on 11/17/24 at 1853, Run as Primary IV. NOT intended for KVO. SUMAtriptan (IMITREX) tablet 50 mg 50 mg, Tube, Every 2 hour PRN, migraine, Starting on Betty 11/18/24 at 0818, May repeat dose in 2 hours if no relief. Do not exceed 200 mg in 24 hours. Linked Groups Order Group 1: naloxone (NARCAN) injection 0.1 mgJump to med 0.1 mg, Intravenous, As needed, opioid reversal, For respiratory rate less than or equal to 8 per minute., Starting on Fri11/17/24 at 2313, Mix nalOXone (NARCAN) 0.4 mg (1mL) with 9 mL of Normal Saline to total 10 mL. Administer 0.1 mg (2.5mL) IV Push every 2 minutes until respiratory rate is 10 or greater. And Notify physician (CANCELED) STAT, Until discontinued, Starting on Fri11/17/24 at 2314, Until Specified, Respiratory rate less than: 8, For respiratory rate less than or equal to 8, notify physician and/or appropriate staff for additional orders. And naloxone (NARCAN) injection 0.4 mgJump to med 0.4 mg, Intravenous, As needed, opioid reversal, patient is pulseless, breathless, and unresponsive, Starting on Fri11/17/24 at 2313, Call a code first, then administer naloxone dose undiluted IV Push over 30 seconds. Group 2: Insert peripheral IV (COMPLETED) IVETT, Once, On Fri11/17/24 at 1854, For 1 occurrence And Saline lock IV (CANCELED) IVETT, Once, On Fri11/17/24 at 1854, For 1 occurrence And sodium chloride (PF) (NS) flush 5 mLJump to med 5 mL, Intravenous, As needed, line care, Starting on Fri11/17/24 at 1853 And sodium chloride 0.9% (NS)Jump to med 0-150 mL/hr, Intravenous, As needed, To flush line after IV infusions when no maintenance IV ordered or a compatibility issue. Infuse 20ml at the same rate as the secondary infusion, Starting on Fri11/17/24 at 1853, Run as Primary IV. NOT intended for KVO. Scheduled Medication Order 12/16/2024 12/17/2024 12/18/2024 apixaban (ELIQUIS) tablet 5 mg 5 mg, Tube, 2 times daily, First dose (after last modification) on Betty 12/16/24 at 0800, Indication: DVT/PE, How long has patient been on apixaban? 7 Days - 6 Months 1003 (Given - Provider: Lynette Irizarry RN)2042 (Given - Provider: Drew Gonzáles RN) 0845 (Given - Provider: Stacie Mace, DANIEL)2154 (Given - Provider: Drew Gonzáles RN) 0943 (Given - Provider: Stacie Mace, DANIEL) cefePIMe-dextrose (MAXIPIME) 2 gram/50 mL IVPB 2,000 mg 2,000 mg, Intravenous, at 100 mL/hr, Every 8 hours, First dose on Betty 12/16/24 at 0000, Indication: Sepsis 0100 (New Bag - Provider: Drew Gonzáles RN)0130 (Stopped - Provider: Lynette Irizarry RN)1014 (New Bag - Provider: Lynette Irizarry RN)1036 (Paused - Provider: Lynette Irizarry, DANIEL)1036 (Restarted - Provider: Lynette Irizarry RN)1037 (Paused - Provider: Lynette Irizarry, RN)1037 (Restarted - Provider: Lynette Irizarry, RN)1045 (Stopped - Provider: Lynette Irizarry, RN)1651 (New Bag - Provider: Lynette Irizarry RN) 0100 (New Bag - Provider: Jennie Jasso RN)0859 (New Bag - Provider: Stacie Mace RN)0912 (Paused - Provider: Stacie Mace RN)0912 (Restarted - Provider: Stacie Mace RN)0930 (Stopped - Provider: Stacie Mace RN)1655 (New Bag - Provider: Stacie Mace RN) 0000 (Not Given - Provider: Drew Gonzáles RN - Reason: Loss of IV access)0800 (Not Given - Provider: Stacie Mace RN - Reason: Loss of IV access)1406 (Rate/Dose Verify - Provider: Stacie Mace RN)1500 (Stopped - Provider: Stacie Mace RN)1600 (Canceled Entry - Provider: Stacie Mace RN - Comment: pt discharging) cyanocobalamin (B-12) tablet 2,500 mcg 2,500 mcg, Tube, Nightly, First dose on Betty 12/16/24 at 0130 0130 (Not Given - Provider: Drew Gonzáles RN - Reason: Other - Comment: patient not taking per POA)2100 (Not Given - Provider: Drew Gonzáles RN - Reason: Patient/family refused - Comment: not taking anymore per poa) 2099 (Not Given - Provider: Drew Gonzáles RN - Reason: Patient/family refused) doxazosin (CARDURA) tablet 4 mg 4 mg, Oral, Nightly, First dose on Betty 12/16/24 at 2100, On hold since Betty 12/16/2024 at 0821 until manually unheld 0821 (Held by provider - Provider: Sivakumar Arias DO - Reason: Change in Vital Signs)2100 (Automatically Held - Provider: Sivakumar Arias DO) 2100 (Automatically Held - Provider: Sivakumar Arias DO) 1702 (Unheld by provider - Provider: Discharge Provider, Automatic) famotidine (PEPCID) tablet 20 mg 20 mg, Tube, 2 times daily, First dose on Fri12/16/24 at 0900 1003 (Given - Provider: Lynette Irizarry RN)2043 (Given - Provider: Drew Gonzáles RN) 0846 (Given - Provider: Stacie Mace RN)215 (Given - Provider: Drew Gonzáles RN) 0943 (Given - Provider: Stacie Mace RN) Patient Own Medication: umeclidinium-vilantero L 62.5-25 mcg/actuation DsDv 1 Inhalation 1 Inhalation, Inhalation, Daily, First dose (after last modification) on Fri12/16/24 at 1330, Drug Name: umeclidinium-vilantero L 62.5-25 mcg/actuation DsDv, Form: Inhaler, Length of Therapy: Indefinite, How soon needed? (normally 72 hrs needed to procure): 0-24 hrs, Reason for Non-Formulary: Allergy to the alternative formulary, Will this medication be patient supplied? Yes 1417 (Given - Provider: Lynette Irizarry RN) 0846 (Given - Provider: Stacie Mace RN) 0943 (Given - Provider: Stacie Mace RN) potassium, sodium phosphates (PHOS-NAK) 280-160-250 mg packet 1 packet (COMPLETED) 1 packet, Oral, 4 times daily with meals and nightly, First dose on Fri12/17/24 at 1000, For 1 day, mg dosing is based on phosphorus component. Each packet contains 250 mg elemental phosphorus. 1120 (Given - Provider: Stacie Mace RN)1653 (Given - Provider: Stacie Mace RN)215 (Given - Provider: Drew Gonzáles, DANIEL) 0943 (Given - Provider: Stacie Mace RN) roflumilast (DALIRESP) tablet 500 mcg 500 mcg, Tube, Daily, First dose (after last modification) on Betty 12/16/24 at 0900 1003 (Given - Provider: Lynette Irizarry RN) 0845 (Given - Provider: Stacie Mace, RN) 0943 (Given - Provider: Stacie Mace, RN) sertraline (ZOLOFT) tablet 50 mg 50 mg, Tube, Daily, First dose (after last modification) on Betty 12/16/24 at 0900 0900 (Not Given - Provider: Lynette Irizarry RN - Reason: Other - Comment: Cannot give because pt is currently taking zyvox) 0846 (Given - Provider: Stacie Mace RN) 0943 (Given - Provider: Stacie Mace RN) vancomycin (VANCOCIN) 1000 mg in sodium chloride 0.9% (NS) 200 mL IVPB (CANCELED) 1,000 mg, Intravenous, at 200 mL/hr, Every 12 hours, First dose on Betty 12/16/24 at 1100, Indication: Sepsis 1150 (New Bag - Provider: Lynette Irizarry RN)1221 (Paused - Provider: Lynette Irizarry RN)1221 (Restarted - Provider: Lynette Irizarry RN)1222 (Paused - Provider: Lynette Irizarry RN)1222 (Restarted - Provider: Lynette Irizarry RN)1223 (Paused - Provider: Lynette Irizarry RN)1223 (Restarted - Provider: Lynette Irizarry RN)1251 (Stopped - Provider: Lynette Irizarry RN)2307 (New Bag - Provider: Drew Gonzáles, DANIEL) vancomycin (VANCOCIN) 1250 mg in sodium chloride 0.9% (NS) 250 mL IVPB 1,250 mg, Intravenous, at 200 mL/hr, Every 12 hours, First dose on Fri12/17/24 at 1100, Indication: Sepsis 1122 (New Bag - Provider: Stacie Mace RN)1237 (Stopped - Provider: Stacie Mace RN)2300 (Not Given - Provider: Drew Gonzáles RN - Reason: Loss of IV access) 1100 (Not Given - Provider: Stacie Mace RN - Reason: Loss of IV access)1500 (Stopped - Provider: Stacie Mace RN) PRN Medication Order 12/16/2024 12/17/2024 12/18/2024 acetaminophen (TYLENOL) tablet 650 mg (CANCELED) 650 mg, Oral, Every 4 hours PRN, mild pain, fever 100.4 F or greater, headaches, Starting on Betty 12/16/24 at 0039 1003 (Given - Provider: Lynette Irizarry RN) acetaminophen (TYLENOL) tablet 650 mg 650 mg, Tube, Every 4 hours PRN, mild pain, fever 100.4 F or greater, headaches, Starting on Fri12/17/24 at 0853 1120 (Given - Provider: Stacie Mace RN) aluminum-magnesium hydroxide-simethicone (MAALOX PLUS) 200-200-20 mg/5 mL suspension 30 mL 30 mL, Tube, Every 4 hours PRN, indigestion, Starting on Fri12/17/24 at 0853 artificial tears (polyethylene glycol 400) 1 % ophthalmic solution 1 drop 1 drop, Both Eyes, As needed, dry eyes, Starting on Betty 12/16/24 at 0039 melatonin Tab 5 mg 5 mg, Tube, Nightly PRN, Sleep, Starting on Betty 12/16/24 at 0045, If still awake in 1 hour proceed to trazodone (Desyrel) ondansetron (ZOFRAN) injection 4 mg(Linked Group 1) 4 mg, Intravenous, Every 6 hours PRN, nausea, vomiting, Starting on Betty 12/16/24 at 0039, [] Use oral route first, if tolerated. [] Use as first line antiemetic. ondansetron (ZOFRAN-ODT) disintegrating tablet 4 mg(Linked Group 1) 4 mg, Oral, Every 6 hours PRN, nausea, vomiting, Starting on Betty 12/16/24 at 0039, [] Use oral route first, if tolerated. [] Use as first line antiemetic. Formulation requires tablet remain in sealed package until immediately prior to dose being administered. sodium chloride (OCEAN) 0.65 % nasal spray 1 spray 1 spray, Each Nare, As needed, irritation, Starting on Betty 12/16/24 at 0039, Upright delivers a spray; Horizontally a stream; Upside down a drop. sodium chloride (PF) (NS) flush 5 mL(Linked Group 2) 5 mL, Intravenous, As needed, line care, Starting on Fri12/15/24 at 2011 sodium chloride (PF) (NS) flush 5 mL(Linked Group 3) 5 mL, Intravenous, As needed, line care, Starting on Fri12/15/24 at 2019 sodium chloride 0.9% (NS)(Linked Group 2) 0-150 mL/hr, Intravenous, As needed, To flush line after IV infusions when no maintenance IV ordered or a compatibility issue. Infuse 20ml at the same rate as the secondary infusion, Starting on Fri12/15/24 at 2011, Run as Primary IV. NOT intended for KVO. 1500 (Stopped - Provider: Stacie Mace RN) sodium chloride 0.9% (NS)(Linked Group 3) 0-150 mL/hr, Intravenous, As needed, To flush line after IV infusions when no maintenance IV ordered or a compatibility issue. Infuse 20ml at the same rate as the secondary infusion, Starting on Fri12/15/24 at 2019, Run as Primary IV. NOT intended for KVO. 0059 (New Bag - Provider: Drew Gonzáles RN)0100 (Paused - Provider: Lynette Irizarry RN)0130 (Restarted - Provider: Lynette Irizarry RN)0247 (Paused - Provider: Lynette Irizarry RN)0247 (Restarted - Provider: Lynette Irizarry RN)0247 (Paused - Provider: Lynette Irizarry RN)1012 (Rate/Dose Change - Provider: Lynette Irizarry RN)1012 (Paused - Provider: Lynette Irizarry RN)1014 (Restarted - Provider: Lynette Irizarry RN)1014 (Paused - Provider: Lynette Irizarry, DANIEL)1045 (Restarted - Provider: Lynette Irizarry RN)1056 (Paused - Provider: Lynette Irizarry RN)1106 (Restarted - Provider: Lynette Irizarry RN)1134 (Paused - Provider: Lynette Irizarry RN)1135 (Restarted - Provider: Lynette Irizarry RN)1150 (Paused - Provider: Lynette Irizarry RN)1251 (Restarted - Provider: Lynette Irizarry RN)1354 (Rate/Dose Verify - Provider: Lynette Irizarry RN)1354 (Stopped - Provider: Lynette Irizarry RN) 0858 (New Bag - Provider: Stacie Mace RN)0859 (Paused - Provider: Stacie Mace RN)0930 (Restarted - Provider: Stacie Mace RN)0944 (Rate/Dose Change - Provider: Stacie Mace RN)0944 (Paused - Provider: Stacie Mace RN)1654 (New Bag - Provider: Stacie Mace RN)1655 (Rate/Dose Verify - Provider: Stacie Mace RN)1655 (Stopped - Provider: Stacie Mace RN) 1500 (Stopped - Provider: Stacie Mace RN) SUMAtriptan (IMITREX) tablet 50 mg 50 mg, Tube, Every 2 hour PRN, migraine, Starting on Betty 12/16/24 at 0045, May repeat dose in 2 hours if no relief. Do not exceed 200 mg in 24 hours. traZODone (DESYREL) tablet 50 mg 50 mg, Tube, Nightly PRN, sleep, Starting on Betty 12/16/24 at 0046, To be administered 1 hour after melatonin if still awake. May repeat x 1 dose in 30 minutes if still awake. Linked Groups Order Group 1: ondansetron (ZOFRAN-ODT) disintegrating tablet 4 mgJump to med 4 mg, Oral, Every 6 hours PRN, nausea, vomiting, Starting on Betty 12/16/24 at 0039, [] Use oral route first, if tolerated. [] Use as first line antiemetic. Formulation requires tablet remain in sealed package until immediately prior to dose being administered. Or ondansetron (ZOFRAN) injection 4 mgJump to med 4 mg, Intravenous, Every 6 hours PRN, nausea, vomiting, Starting on Betty 12/16/24 at 0039, [] Use oral route first, if tolerated. [] Use as first line antiemetic. Group 2: Insert peripheral IV (COMPLETED) IVETT, Once, On Fri12/15/24 at 2012, For 1 occurrence And Saline lock IV (CANCELED) IVETT, Once, On Fri12/15/24 at 2012, For 1 occurrence And sodium chloride (PF) (NS) flush 5 mLJump to med 5 mL, Intravenous, As needed, line care, Starting on Fri12/15/24 at 2011 And sodium chloride 0.9% (NS)Jump to med 0-150 mL/hr, Intravenous, As needed, To flush line after IV infusions when no maintenance IV ordered or a compatibility issue. Infuse 20ml at the same rate as the secondary infusion, Starting on Fri12/15/24 at 2011, Run as Primary IV. NOT intended for KVO. Group 3: Insert peripheral IV (COMPLETED) IVETT, Once, On Fri12/15/24 at 2020, For 1 occurrence And Saline lock IV (CANCELED) IVETT, Once, On Fri12/15/24 at 2020, For 1 occurrence And sodium chloride (PF) (NS) flush 5 mLJump to med 5 mL, Intravenous, As needed, line care, Starting on Fri12/15/24 at 2019 And sodium chloride 0.9% (NS)Jump to med 0-150 mL/hr, Intravenous, As needed, To flush line after IV infusions when no maintenance IV ordered or a compatibility issue. Infuse 20ml at the same rate as the secondary infusion, Starting on Fri12/15/24 at 2019, Run as Primary IV. NOT intended for KVO. FOR RECORDS PERTAINING TO PATIENTS WHO ARE OR HAVE BEEN ENROLLED IN A CHEMICAL DEPENDENCY/SUBSTANCEABUSE PROGRAM, SOME INFORMATION MAY BE OMITTED. This clinical summary was aggregated from multiple sources. Caution should be exercised in using it in the provision of clinical care. This summary normalizes information from multiple sources, and as a consequence, information in this document may materially change the coding, format and clinical context of patient data. In addition, data may be omitted in some cases. CLINICAL DECISIONS SHOULD BE BASED ON THE PRIMARY CLINICAL RECORDS. [facility]. provides no warranty or guarantee of the accuracy or completeness of information in this document.
[2025-01-12] MEDS: Lactated Ringers 1,000 ML 15 ML IV (07:05)
--- NOTE | 2025-01-12 07:15 | PCM.PRE.AN2 ---
ASA Classification* ASA Classification ASA Classification: 4 (COPD, SHARAD, HTN, GERD, ANX, PEG TUBE, Tongue cancer, MRSA - Lung, and cannot take aerosol treatments. Patient CANNOT lay flat or WILL ASPIRATE. ) Assessment & Plan Anesthesia* Anesthesia Assessment Anesthesia Assessment: Discussed sedation and/or anesthesia options, risks, benefits, and alternatives with patient/parents/legal guardian/POA. Questions invited. The patient/parents/legal guardian/POA seems to understand and agrees to proceed with anesthesia plan. Reviewed the physical assessment, medical history, allergy history and patient home medications list prior to surgery/procedure/anesthetic and documented any changes. Performed airway and anesthesia risk assessments. I had a thorough discussion with the patient & about the patient's aspiration risk. The patient aspirates if he lays supine. Given the aspiration risk, we will proceed with a spinal, with minimal/no sedation. The patient and is in agreement of this plan. ALl questions answered. Informed consent obtained, with patient understanding the risk of aspiration with anesthesia today. Anesthesia Type Anesthesia Type: Spinal History Source History Obtained from:: Patient and Chart Anesthesia Focused Assessment* Temperature: 98.4 F Pulse Rate: 92 Blood Pressure: 101/66 Respiratory Rate: 16 Pulse Ox: 92 Oxygen Delivery Method: Room Air Airway Assessment Mouth opens: >3 cm Mallampati Score: III Neck Range of motion (ROM): Full ROM Labs Anesthesia Preop lab: CBC WBC, (4.4-11.0) 7.5 K/mm3 10/31/17, 10:41 RBC, (4.6-6.2) 5.41 M/mm3 10/31/17, 10:41 Hgb, (13.0-16.5) 15.8 g/dl 10/31/17, 10:41 Hct, (40-54) 47.2 % 10/31/17, 10:41 Plt Count, (150-450) 215 K/mm3 10/31/17, 10:41 CHEMISTRY Potassium, (3.5-5.1) 3.9 mmol/L 10/31/17, 10:41 Sodium, (136-145) 142 mmol/L 10/31/17, 10:41 BUN, (7-18) 18 mg/dL 10/31/17, 10:41 Creatinine, (0.70-1.30) 1.05 mg/dL 10/31/17, 10:41 Glucose, (74-106) 103 mg/dL 10/31/17, 10:41 COAG Pre-Assessment Diagnosis/Proposed Procedure Planned Operative Procedure(s): TURP Anesthesia History 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 When Was Last Pacemaker Check QUESTION #4 FULL TEXT: You/Your Family Experience fever (hyperthermia) with Anesthesia Last Oral Intake Last Oral intake: Last Oral Intake NPO since 00:00 01/12/25 06:57 Meds taken in AM with sips of No 01/12/25 06:57 water? 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 technician Female No 01/03/25 10:26 HX of Motion Sickness No 01/03/25 10:26 HX of N/V After Surgery No 01/03/25 10:26 Non-Smoker Yes 01/03/25 10:26 Duration of Surgery greater Yes 01/03/25 10:26 than 60 minutes Number of Risk Factors 2 01/03/25 10:26 PONV Score Moderate Risk 01/03/25 10:26 Height & Weight Height & Weight: Anesthesia: Height & Weight Height 6 ft 01/12/25 06:57 Weight: 82 kg 01/12/25 06:57 Body Mass Index (BMI) 24.5 01/12/25 06:57 Respiratory Assessment Respiratory Assessment - fire extinguisher technician: Respiratory Tract Infection Hx - fire extinguisher technician Hx Respiratory Tract Infection Yes: MRSA INFECTION OF LUNGS 01/03/25 10:26 STOP Sleep Apnea STOP Sleep Apnea - fire extinguisher technician: STOP Sleep Apnea - fire extinguisher technician Hx Hypertension Yes: NO MEDS FOR 1-2 YRS/ 01/03/25 10:26 CURRENTLY HYPOTENSION Hx Sleep Apnea Yes: NO MACHINE/NOT 01/03/25 10:26 DIAGNOSED CPAP No 01/03/25 10:26 BIPAP No 01/03/25 10:26 Do you snore loudly (louder than talking or can be heard Do you often feel tired/ fatigued/ sleepy during daytime? Has anyone observed you stop breathing during sleep? STOP Results Positive 01/03/25 10:26 QUESTION #5 FULL TEXT : Do you snore loudly (louder than talking or can be heard through closed doors)? 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 confused, unrespo /Reproduction History /Reproductive History - fire extinguisher technician: /Reproductive Hx- fire extinguisher technician Hx Now No 01/03/25 10:26 Gestational Age (in weeks): EDC: Hx Hx Para Hx Section SAB No 01/03/25 10:26 Does the father of the baby or his family experience fever w Father of the baby Malignant Hypertension history comment Active Medications Active Medications: Current Medications Generic Name Dose Route Start Last Admin Trade Name Fredq PRN Reason Stop Dose Admin Cefazolin Sodium 2 gm/ Sodium 110 mls @ 200 mls/hr 01/12/25 07:00 Chloride IV 01/12/25 07:32 INTRAOP ONE Lactated Ringer's 1,000 mls @ 15 mls/hr 01/12/25 06:45 01/12/25 07:05 IV 15 mls/hr .Q48H MARCELA Administration PFSH Medical History (Updated 01/03/25 @ 10:50 by Sarah Nova) Deafness Wears hearing aid MRSA infection Cancer Depression Anxiety Arthritis Indwelling urethral catheter present Prostate disease High cholesterol Pulmonary embolism PVD (peripheral vascular disease) Back pain Migraine headache Syncope Dietary restriction Difficulty swallowing History of GI bleed Gastric reflux Former smoker Sleep apnea On home oxygen therapy COPD (chronic obstructive pulmonary disease) Chronic cough History of pain when walking History of echocardiogram Hypertension History of irregular heartbeat Home Medications ?Medication ?Instructions ?Recorded ?Last Taken ?Type Lactobacillus acidophilus 250 500 mmu cells PO DAILY 01/03/25 01/11/25 History million cell capsule (Probiotic Acidophilus) apixaban 5 mg tablet (Eliquis) 5 mg feeding tube BID 01/03/25 01/08/25 History doxazosin 4 mg tablet 4 mg feeding tube QHS 01/03/25 01/11/25 History famotidine 20 mg tablet (Pepcid) 20 mg feeding tube BID 01/03/25 01/11/25 History finasteride 5 mg tablet 5 mg feeding tube QHS 01/03/25 01/11/25 History guaifenesin 1,200 mg tablet, 2,400 mg PO BID 01/03/25 01/11/25 History extended release 12 hr (Mucinex) mupirocin 2 % topical ointment 1 applic topical BID 01/03/25 01/11/25 History (Centany) peg 400-propylene glycol (PF) 0.4 1 drp EACH EYE Q6H PRN dry eye(s) 01/03/25 01/11/25 History %-0.3 % eye drops in a dropperette roflumilast 500 mcg tablet 500 mcg feeding tube QHS 01/03/25 01/11/25 History sertraline 50 mg tablet 50 mg feeding tube QHS 01/03/25 01/11/25 History sumatriptan succinate 50 mg tablet 50 mg PO Q2H PRN migraine headache 01/03/25 Unknown History umeclidinium 62.5 mcg-vilanterol 1 ea inhalation DAILY 01/03/25 01/11/25 History 25 mcg/actuation powdr for inhalation Allergy/AdvReac Type Severity Reaction Status Date / Time budesonide Allergy Severe Anaphylaxis Verified 01/03/25 10:15 revefenacin Allergy Severe Anaphylaxis Verified 01/03/25 10:15 Ipratropium Analogues AdvReac Severe Other Verified 01/03/25 10:15 Surgical History (Updated 01/03/25 @ 10:50 by Sarah Nova) History of lung biopsy Hx of oral surgery Hx of right cataract extraction Hx of left cataract extraction History of esophagogastroduodenoscopy (EGD) Hx of colonoscopy History of percutaneous endoscopic gastrostomy (PEG) History of radical neck dissection Hx of hernia repair Social History Smoking Status: Former smoker Review of Systems (Anesthesia) ROS Narrative System reviewed and no additional complaints, except as documented. Physical Exam Const alert, oriented x3 and average body habitus Resp normal air movement and clear to auscultation bilaterally Effort and Inspection: decreased respiratory effort Cardio regular rate, regular rhythm and no murmurs; Negative for diaphoretic
--- NOTE | 2025-01-12 08:45 | PROS_PTH ---
PATIENT: AMY SUN LOC: [facility] U#:[id number] AGE/SX: 74/M ROOM: LA305 RE01/12/[address]: Dr. Nasir Melissa MD : 1950 BED: 1 DIS: 01/13/2025 SPEC #: [id number] RECD: 01/12/25 14:00 STATUS: ОЛЕГ KOENIGConrad #: [id number] ALIYA: 01/12/25 08:[address]: Nasir Melissa DEPT: SURGICAL PATHOLOGY RECD BY: Hugo Wood ENTERED: 01/12/25 14:50 SP TYPE: TURP OTHR DR: Dr. Ulices Clark, DO Tissues: A - Prostate, NOS Procedures: Surgery Specimen Level IV HEADER OPERATION: Cysto, transurethral resection prostate PRE-OP DIAGNOSIS: Benign prostatic hyperplasia with obstruction TISSUE SUBMITTED: A- Prostate tissue MICROSCOPIC DIAGNOSIS A. Prostate, transurethral resection: - Focal benign surface urothelium - see note. - Benign squamous mucosa. - Unremarkable fibrous stroma. - Aggregates of fungal organisms without associated inflammatory cells, favor contamination. Note: Most of the glandular epithelium is severely distorted with cautery artifact. MICROSCOPIC DESCRIPTION Slides are reviewed. GROSS DESCRIPTION A. Received in formalin labeled with the patient's name and date of . Designated as prostate tissue is a <1 g, 1.6 x 0.7 x 0.2 cm aggregate of whitfield to dark brown, cauterized tissue fragments. Entirely submitted in 1 cassette. VA [id number]:[id number]
--- NOTE | 2025-01-12 08:45 | PROS_PTH ---
PATIENT: AMY SUN LOC: MS3 U#:[id number] AGE/SX: 74/M ROOM: [facility]305 RE01/12/[address]: Dr. Nasir Melissa MD : 1950 BED: 1 DIS: 01/13/2025 SPEC #: [id number] RECD: 01/12/25 14:00 STATUS: ОЛЕГ KOENIGConrad #: [id number] ALIYA: 01/12/25 08:[address]: Nasir Melissa DEPT: SURGICAL PATHOLOGY RECD BY: Hugo Wood ENTERED: 01/12/25 14:50 SP TYPE: TURP OTHR DR: Dr. Ulices Clark, DO Tissues: A - Prostate, NOS Procedures: Surgery Specimen Level IV HEADER OPERATION: Cysto, transurethral resection prostate PRE-OP DIAGNOSIS: Benign prostatic hyperplasia with obstruction TISSUE SUBMITTED: A- Prostate tissue MICROSCOPIC DIAGNOSIS A. Prostate, transurethral resection: - Focal benign surface urothelium - see note. - Unremarkable fibrous stroma. - Aggregates of fungal organisms without associated inflammatory cells, favor contamination. Note: Most of the epithelium is distorted with severe cautery artifact. MICROSCOPIC DESCRIPTION Slides are reviewed. GROSS DESCRIPTION A. Received in formalin labeled with the patient's name and date of . Designated as prostate tissue is a <1 g, 1.6 x 0.7 x 0.2 cm aggregate of whitfield to dark brown, cauterized tissue fragments. Entirely submitted in 1 cassette. RI 5CPT:[id number]
[2025-01-12] MEDS: Cefazolin 1 GM/5 ML Vial 2 GM IV (09:05)
--- NOTE | 2025-01-12 10:26 | OP.PCM_ITS ---
Operative Report (Standard) Operative Information Date of Procedure: 01/12/25 Pre-Operative Diagnosis: BPH with obstruction Post-Operative Diagnosis: The same Surgery/Procedure Performed: Transurethral section of prostate wind site manager: No Type of Anesthesia: Spinal RN Documented Start/Stop Times: Operation Date: 01/12/25 08:45 Case Time Into Pre-Op 01/12/25 06:35 Anesthesia Start 01/12/25 09:04 Into Room 01/12/25 09:04 Procedure Start 01/12/25 09:16 Procedure End 01/12/25 10:17 Anesthesia End 01/12/25 10:25 Out of Room 01/12/25 10:25 Procedure Start Time: 09:16 Procedure Stop Time: 10:17 Select all DRAINS/GRAFTS/IMPLANTS that apply: Drains Drain details: 22 [place] three-way Serna Estimated Blood Loss: Minimal Specimen collected: Yes Description of specimen(s) removed: Prostate tissue Description of surgery: In the preoperative setting I discussed with the patient how the surgery would be done with expect afterwards. We discussed how a prostate resection is done and we discussed the risk of the surgery including, bleeding, infection, retrograde ejaculation, changes with ejaculation or intercourse,. We discussed the possibility that the resection of the prostate may not alleviate his urinary symptoms. We discussed the small risk of developing scar tissue along the urethral channel and strictures. We also discussed the chance of the prostate could grow back and he may need further surgery or treatment in the future for prostate problems. Patient was taken back to the operating room, timeout procedure was performed, he was identified and marked and placed on the operating room table. He underwent general anesthesia. He was placed in dorsolithotomy position. Penis and testicles were prepped and draped in usual sterile fashion. Went into the bladder using the visual obturator with a resectoscope. Once inside the bladder identified the right and left ureteral orifice. I then identified the prostate and the anatomy of the prostate. I marked out the area of the sphincter and the verumontanum was identified. I then proceeded with the prostate resection first resected the median lobe. And then resected the right lobe of the prostate. Then to resect the left lobe of the prostate. I then resected the apical tissue of the prostate. This was a complete resection of all obstructive tissue to improve voiding and relieve obstruction. I then made sure that there was no injury to the sphincter or the verumontanum was still intact. At the end of the resection all the chips were Ellik out of the bladder. I then identified the left and right ureteral orifice and these were confirmed to be in good position and effluxing and not injured. The resectoscope was removed, a [address] was placed into the bladder on continuous irrigation. And the urine was fairly light pink color and draining normally. He was taken back to the PACU in good condition. CPT 51361 Surgical Findings: Prostate open upper section nicely with button resectoscope Complications Complications: No Admit VTE Documentation VTE Present on Admission: No VTE Mechan Device Prophylaxis: SCD's VTE Pharm Prophylaxis ordered?: No
--- NOTE | 2025-01-12 10:26 | PCM.DC ---
Discharge Instructions DC O2, CPAP, BIPAP needs Home O2 Discharge instructions: No Dressing / Incision Discharge Activity: Return to Normal Activity and May Not Drive (while taking narcotic pain medications.) Dressing / Incision Call your doctor if you observe: Fever of 101 or Higher Follow Up Care Please Follow Up With: Nasir Melissa MD When: Call [phone] for an appointment Test Results: Test results from this visit will be discussed in further detail at your follow-up appointment, if applicable. Discharge Plan Admission Primary Reason for Your Visit: turp Attending Provider: Nasir Melissa Primary Care Provider: Ulices Clark Instructions Print Language: Slovenian Discharge Orders/Prescriptions Prescriptions: Continued famotidine [Pepcid] 20 mg tablet 20 mg feeding tube BID sertraline 50 mg tablet 50 mg feeding tube QHS Probiotic Acidophilus 250 million cell capsule 500 mmu cells PO DAILY Patient Comments: PER FEEDING TUBE roflumilast 500 mcg tablet 500 mcg feeding tube QHS umeclidinium-vilanterol 62.5-25 mcg/actuation blister with device 1 ea INHALATION DAILY guaifenesin [Mucinex] 1,200 mg tablet extended release 12hr 2,400 mg PO BID Patient Comments: GIVEN IN FEEDING TUBE mupirocin [Centany] 2 % ointment 1 applic topical BID peg 400-propylene glycol (PF) 0.4-0.3 % dropperette 1 drp EACH EYE Q6H PRN (Reason: dry eye(s)) sumatriptan succinate 50 mg tablet 50 mg PO Q2H PRN (Reason: migraine headache) Patient Comments: PER FEEDING TUBE Held Eliquis 5 mg tablet 5 mg feeding tube BID Hold Instructions: Resume on 01/19/25. Discontinued finasteride 5 mg tablet 5 mg feeding tube QHS doxazosin 4 mg tablet 4 mg feeding tube QHS Referrals / Follow Up: Ulices Clark DO [Primary Care Provider, Internal Medicine] Disposition Disposition (needs filled in before D/C Order can be placed): Home, Self Care
--- NOTE | 2025-01-12 10:35 | PCM.POST.ANE ---
Anesthesia: Postop Eval I Current Vital Signs Temperature: 98.1 F Pulse Rate: 57 Blood Pressure: 140/72 Respiratory Rate: 16 Pulse Ox: 96 Assessment Airway patent: Yes Spontaneous unlabored respirations: Yes nausea: No Vomiting: No Anesthesia Complication: No Fluid Hydration Crystalloid volume administer (ml): 700 Total IV fluid infused: 700 Progress Note Anesthesia document: Postop Eval 1 completed: Yes
--- NOTE | 2025-01-12 11:33 | POSTOPAN2_ITS ---
Anesthesia Postop Eval I Sum Postop Eval Completion status Anesthesia document: Postop Eval 1 completed: Yes Anesthesia Postop Eval I Summary Anesthesia Postop Eval I Summary: Anesthesia Postop Eval I: Assessment Summary Airway patent Yes 01/12/25 10:35 [email or web address] Spontaneous unlabored Yes 01/12/25 10:35 [email or web address] respirations Mental status nausea No 01/12/25 10:35 [email or web address] Vomiting No 01/12/25 10:35 [email or web address] Anesthesia Postop Eval I: Fluid Summary Crystalloid volume administer 700 01/12/25 10:35 CLEAT [email or web address] (ml) Colloids volume administered ( ml) Blood Product volume administered (ml) Total IV fluid infused 700 01/12/25 10:35 [email or web address] Anesthesia Postop Eval I: Summary Notes Anesthesia Complication No 01/12/25 10:35 [email or web address] Anesthesia Complication Comment: Post-operative progress note Anesthesia: Postop Eval II Evaluation Mental status: Awake Pain Level: 0 nausea: No Vomiting: No Complications Anesthesia Complication: No
--- NOTE | 2025-01-12 11:33 | PCM.POSTANE2 ---
Anesthesia Postop Eval I Sum Postop Eval Completion status Anesthesia document: Postop Eval 1 completed: Yes Anesthesia Postop Eval I Summary Anesthesia Postop Eval I Summary: Anesthesia Postop Eval I: Assessment Summary Airway patent Yes 01/12/25 10:35 CLINICAL ADMINISTRATIVE COORDINATOR.[email or web address] Spontaneous unlabored Yes 01/12/25 10:35 CLINICAL ADMINISTRATIVE COORDINATOR.TNES respirations Mental status nausea No 01/12/25 10:35 CLINICAL ADMINISTRATIVE COORDINATOR.TNES Vomiting No 01/12/25 10:35 CLINICAL ADMINISTRATIVE COORDINATOR.TNES Anesthesia Postop Eval I: Fluid Summary Crystalloid volume administer 700 01/12/25 10:35 CLINICAL ADMINISTRATIVE COORDINATOR.TNES (ml) Colloids volume administered ( ml) Blood Product volume administered (ml) Total IV fluid infused 700 01/12/25 10:35 CLINICAL ADMINISTRATIVE COORDINATOR.TNES Anesthesia Postop Eval I: Summary Notes Anesthesia Complication No 01/12/25 10:35 CLINICAL ADMINISTRATIVE COORDINATOR.TNES Anesthesia Complication Comment: Post-operative progress note Anesthesia: Postop Eval II Evaluation Mental status: Awake Pain Level: 0 nausea: No Vomiting: No Complications Anesthesia Complication: No
[2025-01-12] MEDS: 0.9% Normal Saline (1000mL) 1,000 ML 50 ML IV (11:52)
[2025-01-12] MEDS: Cefazolin 1 GM/50 ML BAG IV ×2 (15:58→21:32)
[2025-01-13 03:11] VITALS: BP 105/69; PULSE 68; RESP 18; TEMP 36.6; O2SAT 94
[2025-01-13] MEDS: 0.9% Normal Saline (1000mL) 1,000 ML 50 ML IV (06:27)
[2025-01-13 06:50] VITALS: BP 126/90; PULSE 67; RESP 16; TEMP 36.6; O2SAT 95
[2025-01-13 08:54] VITALS: BP 106/73; PULSE 61; RESP 18; TEMP 36.4; O2SAT 92
== END 2025-01-13 11:03 | disposition home or self-care (01) ==
LOC: SDC 11:02 → MS3 11:02
PROVIDERS: Admitting Provider Urology; PCP Family Medicine; Referring Provider Urology; Visit Provider Urology
PROC: (CPT 52601; principal; 2025-01-12 08:35)
DX: N40.1 Benign prostatic hyperplasia with lower urinary tract symptoms (principal); J43.9 Emphysema, unspecified; R33.8 Other retention of urine; R35.1 Nocturia; R39.11 Hesitancy of micturition; Z79.899 Other long term (current) drug therapy; G47.30 Sleep apnea, unspecified; E78.00 Pure hypercholesterolemia, unspecified; Z99.81 Dependence on supplemental oxygen; I10 Essential (primary) hypertension; Z86.711 Personal history of pulmonary embolism; Z87.891 Personal history of nicotine dependence
CPT/HCPCS: 52601; 00914; 88305; 96365; 97802; 99221; G0378